=== PATIENT | male | born 1965 | race Caucasian/White ===

== ENCOUNTER 2022-08-15 06:40 | Inpatient (IN) | payer OTHER ==
--- OUTSIDE RECORDS SUMMARY | 2022-08-15 06:47 | XMS REPORT | Continuity of Care Document ---
:1965 Author Organization [facility] t Address [address] [place] [address] [address] [place] [address] Care Team Providers Name Role Phone RAMÓN KRAFT Primary Care Physician Unavailable RAMÓN KRAFT Attending Clinician Unavailable RAMÓN KRAFT Attending Clinician Unavailable MICHELINE DUPREE Attending Clinician Unavailable YARED LÓPEZ Attending Clinician Unavailable JENI FARNSWORTH Attending Clinician Unavailable BLAS URBINA Attending Clinician Unavailable LEIGHTON MINAYA Attending Clinician Unavailable CAREY ELLSWORTH Attending Clinician Unavailable Carey Ellsworth DO Attending Clinician Doctor Unassigned, [place] Attending Clinician Unavailable Mari Gore LMSW Attending Clinician Alex Snow RN Attending Clinician Unavailable Clare Mcneal RN Attending Clinician YONIS MAYO Attending Clinician Unavailable Brennan Love DO Attending Clinician Yonis Mayo MD Attending Clinician Stephany Hurley MD Attending Clinician STEPHANY HURLEY Attending Clinician Unavailable BRENNAN LOVE Admitting Clinician Unavailable STEPHANY HURLEY Admitting Clinician Unavailable Payers Payer Name Policy Type Policy Number Effective Date Expiration Date S cedric JIMENEZ [id number] 2022 00:00:00 [place]ICAID OF [place] [id number] 2022 00:00:00 [facility] DUAL [id number] 2022 COMP ALLY HMO-POS 00:00:00 Problems Condition Condition Condition Status Onset Resolution Last Treating Co mments Source Name Details Category Date Date Treatment Clinician Date Morbid Morbid Disease Active Univers obesity obesity 07-28 [place] mass index 00 Me dical of 50 or of 50 or Branch higher higher Wound of Wound of Disease Active Unive rs left lower left lower 07-28 it y of extremity, [place], [place] sequ[place] sequela 00 Medical Branch Hyperkalem Hyperkalem Disease Active U nivers ia ia 07-28 ity of 00:00: [place] 00 Medical Branch Allergies, Adverse Reactions, Alerts Allergy Allergy Status Severity Reaction(s) Onset Inactive Treating Comm ents Source Name Type Date Date Clinician SEAFOOD/ Food Active Swelling Univer s FISH 07-28 ity of 00:00: [place] 00 Medical Branch Seafood/ Propensi Active Swelling Univ ers Fish ty to 07-28 ity of adverse 00:00: [place] reaction 00 Medical s Branch NO KNOWN Drug Active Univers ALLERGIE Class ity of S [place] [facility] [place] Social History Social Habit Start Date Stop Date Quantity Comments Source History of tobacco Passive smoker Un iversity of use [place] [facility] History SDOH University o f Alcohol Std Drinks [place] [facility] History SDOH University o f Alcohol Binge [place] [facility] History SDOH Social Unive rsity of [facility] Med ical Together Branch History SDOH Social Unive rsity of [facility] Medical Branch History SDOH Social Unive rsity of [facility] Medical Membership Branch History SDOH Social Unive rsity of [facility] Medical Meetings Branch Exposure to 2022-08-04 2022-08-14 Not sure University SARS-CoV-2 (event) 00:00:00 00:11:00 [facility] Cigarettes smoked 2022-08-05 2022-08-05 Univers ity of current (pack per 00:00:00 00:00:00 ) - Reported Branch Alcohol intake 2022-08-05 2022-08-05 Ex-drinker University of 00:00:00 00:00:00 (finding) [facility] Alcohol Comment 2022-08-05 2022-08-05 quit drinking 25 Uni versity of 00:00:00 00:00:00 years ago [place] [facility] Tobacco use and 2022-08-05 2022-08-05 User of Universit y of exposure 00:00:00 00:00:00 smokeless [place] Medical tobacco Branch History SDOH 2022-07-29 2022-07-29 1 University o f Alcohol Frequency 00:00:00 00:00:00 [facility] edical Branch History SDOH Social 2022-07-29 2022-07-29 5 Unive rsity of Connections Phone 00:00:00 00:00:00 [facility] edical Branch History SDOH Social 2022-07-29 2022-07-29 5 Unive rsity of Connections Living 00:00:00 00:00:00 [place] [facility] History SDOH 2022-07-29 2022-07-29 7 University o f Physical Activity 00:00:00 00:00:00 [facility] edical DPW Branch History SDOH 2022-07-29 2022-07-29 3 University o f Physical Activity 00:00:00 00:00:00 [facility] edical MPS Branch History SDOH 2022-07-29 2022-07-29 5 University o f Financial 00:00:00 00:00:00 [place] [facility] History SDOH Food 2022-07-29 2022-07-29 1 Univers ity of Worry 00:00:00 00:00:00 [place] [facility] History SDOH Food 2022-07-29 2022-07-29 1 Univers ity of Scarcity 00:00:00 00:00:00 [place] [facility] History SDOH 2022-07-29 2022-07-29 2 University o f Transport Med 00:00:00 00:00:00 [place] [facility] History SDOH 2022-07-29 2022-07-29 2 University o f Transport Non-Med 00:00:00 00:00:00 [place] M edical Branch History SDOH 2022-07-29 2022-07-29 2 University o f Housing Unable to 00:00:00 00:00:00 [facility] edical Pay Branch History SDOH 2022-07-29 2022-07-29 2 University o f Housing Places 00:00:00 00:00:00 [facility] dilshad Lived Branch History SDOH 2022-07-29 2022-07-29 1 University o f Housing Homeless 00:00:00 00:00:00 [place] [facility] dicmayank Last Year Branch Sex [birth year] At [birth year] Universit y of 00:00:00 00:00:00 [place] [facility] [place] Smoking Status Start Date Stop Date Source Tobacco smoking consumption [facility] unknown Branch Smokes tobacco daily 2022-08-05 00:00:00 [facility] Ordered Filled Start Stop Current Ordering Indication Dosage Frequency Signature Comments Components Source Medication Medication Date Date Medication? Clinician (SIG) Name Name calcium 2022- Yes 500mg 500 mg, Unive rs carbonate 08-14 Oral, ity of (OSCAL-500) 08:30: 20:29 [place]CE, 1 [place] tablet 500 00 :00 dose, On Medic al mg Wed Branch 08/14/22 at 0330, GELA levETIRAcet 2022- No 1000mg 1,000 mg, Univers am (KEPPRA) 08-14 IV ity of in NACL 07:15: 07:42 Piggyback, [place] as (ISO-OS) 00 :00 ONCE, 1 Medical 1,000 dose, On Branch mg/100 mL Wed RTU 08/14/22 at 0215, Administer over 15 Minutes, 100 mL NaCl 0.9% 2022- No 500mL at 999 Univ ers (NS) bolus 08-14 mL/hr, 500 it y of infusion 05:30: 07:00 mL, IV [place] 500 mL 00 :00 Infusion, Medical ONCE, 1 Branch dose, On 08/14/22 at 0030, STAT divalproex Yes [id number] 250mg Take 1 Univers ER 250 mg 08-14 tablet by ity o f 24 hr 00:00: mouth [place] tablet 00 every 24 Medical (twenty-fo Branch ur) hours. lancing Yes 1{each} Take 1 Unive rs device/lanc 4-17 Each in ity o f ets 14:20: the [place] (ACCU-CHEK 29 morning Medica l SOFT DEV and 1 Each Branc h LANCETS at noon MIS) and 1 Each in the evening. lancing 2023-0 Yes 1{each} Take 1 [facility]: the [place] (ACCU-CHEK 29 morning Medica l SOFT DEV and 1 Each Branc h LANCETS at noon MISC) and 1 Each in the evening. lancing Yes 1{each} Take 1 Unive rs device/lanc 4-17 Each in [facility] ets 14:20: the [place] (ACCU-CHEK 29 morning Medica l SOFT DEV and 1 Each Branc h LANCETS at noon MISC) and 1 Each in the evening. lancing 0 Yes 1{each} Take 1 Unive rs device/lanc 4-17 Each in [facility] ets 14:20: the [place] (ACCU-CHEK 29 morning Medica l SOFT DEV and 1 Each Branc h LANCETS at noon MISC) and 1 Each in the evening. lancing Yes 1{each} Take 1 Unive rs device/lanc 4-17 Each in [facility] ets 14:20: the [place] (ACCU-CHEK 29 morning Medica l SOFT DEV and 1 Each Branc h LANCETS at noon MISC) and 1 Each in the evening. lancing Yes 1{each} Take 1 Unive rs device/lanc 4-17 Each in [facility] ets 14:20: the [place] (ACCU-CHEK 29 morning Medica l SOFT DEV and 1 Each Branc h LANCETS at noon MISC) and 1 Each in the evening. lancing 0 Yes 1{each} Take 1 Unive rs device/lanc 4-17 Each in [facility] ets 14:20: the [place] (ACCU-CHEK 29 morning Medica l SOFT DEV and 1 Each Branc h LANCETS at noon MISC) and 1 Each in the evening. lancing 0 Yes 1{each} Take 1 Unive rs device/lanc 4-17 [facility] ets 14:20: the [place] (ACCU-CHEK 29 morning Medica l SOFT DEV and 1 Each Branc h LANCETS at noon MISC) and 1 Each in the evening. lancing 0 Yes 1{each} Take 1 [facility]: the [place] (ACCU-CHEK 29 morning Medica l SOFT DEV and 1 Each Branc h LANCETS at noon [facility] [place] and 1 Each in the evening. lisinopriL 2023-0 2023- No 2.5mg Take 1 Uni vers 2.5 mg 4-17 04-17 tablet by ity of tablet 14:01: 00:00 mouth in [place] 18 :00 the Medical morning. Branch gabapentin 2023-0 2023- No 300mg Take 1 Uni vers 300 mg 4-17 04-17 capsule by ity of capsule 14:01: 00:00 mouth in [place] 18 :00 the Medical morning. Branch atorvastati 3-0 2023- No 40mg Take 1 Uni vers n 40 mg 4-17 04-17 tablet by ity of tablet 14:01: 00:00 mouth at [place] 18 :00 bedtime. Medical Branch apixaban 5 3-0 2023- No 5mg Take 1 Univ ers mg tablet 4-17 04-17 tablet by ity of 14:01: 00:00 mouth [place] 18 :00 every 12 Medical (twelve) Branch hours. metoprolol 2022-0 3- No 25mg Take 1 Univ ers tartrate 25 4-17 04-17 tablet by it y of mg tablet 14:01: 00:00 mouth in [facility] as 18 :00 the Medical morning Branch and 1 tablet in the evening. lisinopriL 2022-0 3- No 2.5mg Take 1 Uni vers 2.5 mg 4-17 04-17 tablet by ity of tablet 14:01: 00:00 mouth in [place] 18 :00 the Medical morning. Branch gabapentin 3-0 2023- No 300mg Take 1 Uni vers 300 mg 4-17 04-17 capsule by ity of capsule 14:01: 00:00 mouth in [place] 18 :00 the Medical morning. Branch atorvastati 2023-0 2023- No 40mg Take 1 Uni vers n 40 mg 4-17 04-17 tablet by ity of tablet 14:01: 00:00 mouth at [place] 18 :00 bedtime. Medical Branch apixaban 5 3-0 2023- No 5mg Take 1 Univ ers mg tablet 4-17 04-17 tablet by ity of 14:01: 00:00 mouth [place] 18 :00 every 12 Medical (twelve) Branch hours. metoprolol 2022-0 2023- No 25mg Take 1 Univ ers tartrate 25 4-17 04-17 tablet by it y of mg tablet 14:01: 00:00 mouth in [facility] as 18 :00 the Medical morning Branch and 1 tablet in the evening. lisinopriL 2022-0 3- No 2.5mg Take 1 Uni vers 2.5 mg 4-17 04-17 tablet by ity of tablet 14:01: 00:00 mouth in [place] 18 :00 the Medical morning. Branch gabapentin 2022-0 2023- No 300mg Take 1 Uni vers 300 mg 4-17 04-17 capsule by ity of capsule 14:01: 00:00 mouth in [place] 18 :00 the Medical morning. Branch atorvastati 2022-0 2022- No 40mg Take 1 Uni vers n 40 mg 4-17 04-17 tablet by ity of tablet 14:01: 00:00 mouth at [place] 18 :00 bedtime. Medical Branch apixaban 5 2022-0 3- No 5mg Take 1 Univ ers mg tablet 4-17 04-17 tablet by ity of 14:01: 00:00 mouth [place] 18 :00 every 12 Medical (twelve) Branch hours. metoprolol 2022-0 3- No 25mg Take 1 Univ ers tartrate 25 4-17 04-17 tablet by it y of mg tablet 14:01: 00:00 mouth in [facility] as 18 :00 the Medical morning Branch and 1 tablet in the evening. SERTraline 2022-0 3- No 25mg Take 1 Univ ers 25 mg 4-17 04-17 tablet by ity of tablet 14:01: 00:00 mouth in [place] 12 :00 the Medical morning. Branch SERTraline 2022-0 3- No 25mg Take 1 Univ ers 25 mg 4-17 04-17 tablet by ity of tablet 14:01: 00:00 mouth in [place] 12 :00 the Medical morning. Branch SERTraline 2022-0 3- No 25mg Take 1 Univ ers 25 mg 4-17 04-17 tablet by ity of tablet 14:01: 00:00 mouth in [place] 12 :00 the Medical morning. Branch Miscellaneo 2022-0 Yes Bilateral U nivers Medical -17 prosthetic ity of Supply Misc 13:42: s - [facility] [place] as 59 Medical Branch Miscellaneo 2022-0 Yes Bilateral U nivers us Medical 4-17 prosthetic ity of Supply Misc 13:42: s - BKA [place] 59 Medical Branch Miscellaneo 2022-0 Yes Bilateral U nivers us Medical 4-17 prosthetic ity of Supply Misc 13:42: s - BKA [place] 59 Medical Branch Miscellaneo 0 Yes Bilateral U nivers us Medical 4-17 prosthetic ity of Supply Misc 13:42: s - BKA [place] 59 Medical Branch Miscellaneo 2022-0 Yes Bilateral U nivers us Medical 4-17 prosthetic ity of Supply Misc 13:42: s - BKA [place] 59 Medical Branch Miscellaneo 2022-0 Yes Bilateral U nivers us Medical 4-17 prosthetic ity of Supply Misc 13:42: s - BKA [place] as 59 Medical Branch Miscellaneo 2022-0 Yes Bilateral U nivers us Medical 4-17 prosthetic ity of Supply Misc 13:42: s - BKA [place] as 59 Medical Branch Miscellaneo 2022-0 Yes Bilateral U nivers us Medical 4-17 prosthetic ity of Supply Misc 13:42: s - BKA [place] as 59 Medical Branch Miscellaneo 2022-0 Yes Bilateral U nivers us Medical 4-17 prosthetic ity of Supply Misc 13:42: s - BKA [place] 59 Medical Branch SEMGLEE,INS Yes inject Univ ers ULIN 4-17 under the ity of GLARGINE-YF 13:33: skin. As AURELIO Quintanilla 22 directed Medical Branch insulin NPH Yes inject Univ ers human 4-17 under the ity of isophane 13:33: skin. Abdi (HUMULIN N 22 Unsure of Medi dilshad [place]EN [place]) what kind Branch of humulin insulin he takes SEMGLEE,INS Yes inject Univ ers ULIN 4-17 under the ity of GLARGINE-YF 13:33: skin. As AURELIO Quintanilla 22 directed Medical Branch insulin NPH Yes inject Univ ers human 4-17 under the ity of isophane 13:33: skin. Abdi (HUMULIN N 22 Unsure of Medi dilshad [place]EN [place]) what kind Branch of humulin insulin he takes SEMGLEE,INS 2023-0 Yes inject Univ ers ULIN 4-17 under the ity of GLARGINE-YF 13:33: skin. As AURELIO Quintanilla 22 directed Medical Branch insulin NPH 2022-0 Yes inject Univ ers human 4-17 under the ity of isophane 13:33: skin. Abdi (HUMULIN N 22 Unsure of [facility]) what kind Branch of humulin insulin he takes SEMGLEE,INS 2023-0 Yes inject Univ ers ULIN 4-17 under the ity of GLARGINE-YF 13:33: skin. As AURELIO Quintanilla 22 directed Medical Branch insulin NPH 2022-0 Yes inject Univ ers human 4-17 under the ity of isophane 13:33: skin. Abdi (HUMULIN N 22 Unsure of [facility]) what kind Branch of humulin insulin he takes SEMGLEE,INS 2023-0 Yes inject Univ ers ULIN 4-17 under the ity of GLARGINE-YF 13:33: skin. As AURELIO Quintanilla 22 directed Medical Branch insulin NPH 2022-0 Yes inject Univ ers human 4-17 under the ity of isophane 13:33: skin. Abdi (HUMULIN N 22 Unsure of [facility]) what kind Branch of humulin insulin he takes SEMGLEE,INS 2023-0 Yes inject Univ ers ULIN 4-17 under the ity of GLARGINE-YF 13:33: skin. As AURELIO Quintanilla 22 directed Medical Branch insulin NPH 2022-0 Yes inject Univ ers human 4-17 under the ity of isophane 13:33: skin. Abdi (HUMULIN N 22 Unsure of [facility]) what kind Branch of humulin insulin he takes SEMGLEE,INS 2023-0 Yes inject Univ ers ULIN 4-17 under the ity of GLARGINE-YF 13:33: skin. As AURELIO Quintanilla 22 directed Medical Branch insulin NPH 3-0 Yes inject Univ ers human 4-17 under the ity of isophane 13:33: skin. Abdi (HUMULIN N 22 Unsure of [facility]) what kind Branch of humulin insulin he takes SEMGLEE,INS 2023-0 Yes inject Univ ers ULIN 4-17 under the ity of GLARGINE-YF 13:33: skin. As Rolando [place] 22 directed Medical Branch insulin NPH 2023-0 Yes inject Univ ers human 4-17 under the ity of isophane 13:33: skin. [place] (HUMULIN N 22 Unsure of Medi dilshad [place]EN [place]) what kind Branch of humulin insulin he takes SEMGLEE,INS 2023-0 Yes inject Univ ers ULIN 4-17 under the ity of GLARGINE-YF 13:33: skin. As Rolando [place], [place] 22 directed Medical Branch insulin NPH 2023-0 Yes inject Univ ers human 4-17 under the ity of isophane 13:33: skin. [place] (HUMULIN N 22 Unsure of Medi dilshad [place]EN [place]) what kind Branch of humulin insulin he takes cephALEXin 2023-0 Yes 500mg Take 1 Univ ers 500 mg 4-17 capsule by ity of capsule 13:23: mouth 4 [place] [address] (four) Medical times Branch daily. cephALEXin 2023-0 Yes 500mg Take 1 Univ ers 500 mg 4-17 capsule by ity of capsule 13:23: mouth 4 [place] [address] (four) Medical times Branch daily. cephALEXin 2023-0 Yes 500mg Take 1 Univ ers 500 mg 4-17 capsule by ity of capsule 13:23: mouth 4 [place] 56 (four) Medical times Branch daily. cephALEXin 2023-0 Yes 500mg Take 1 Univ ers 500 mg 4-17 capsule by ity of capsule 13:23: mouth 4 [place] 56 (four) Medical times Branch daily. cephALEXin 2023-0 Yes 500mg Take 1 Univ ers 500 mg 4-17 capsule by ity of capsule 13:23: mouth 4 [place] 56 (four) Medical times Branch daily. cephALEXin 2023-0 Yes 500mg Take 1 Univ ers 500 mg 4-17 capsule by ity of capsule 13:23: mouth 4 [place] 56 (four) Medical times Branch daily. cephALEXin 2023-0 Yes 500mg Take 1 Univ ers 500 mg 4-17 capsule by ity of capsule 13:23: mouth 4 [place] 56 (four) Medical times Branch daily. cephALEXin 2023-0 Yes 500mg Take 1 Univ ers 500 mg 4-17 capsule by ity of capsule 13:23: mouth 4 [place] 56 (four) Medical times Branch daily. cephALEXin 0 Yes 500mg Take 1 Univ ers 500 mg 4-17 capsule by ity of capsule 13:23: mouth 4 [place] [address] (four) Medical times Branch daily. gabapentin 0 Yes [id number] 300mg Take 1 Univers 300 mg 4-17 capsule by ity of capsule 00:00: mouth in [place] 00 the Medical morning Branch and 1 capsule at noon and 1 capsule in the evening. amiodarone 0 Yes [id number] 200mg Take 1 Univers 200 mg 4-17 tablet by ity of tablet 00:00: mouth in [place] 00 the Medical morning. Branch apixaban 5 0 Yes 5mg Take 1 Unive rs mg tablet 4-17 tablet by ity o f 00:00: mouth in [place] 00 the Medical morning Branch and 1 tablet in the evening. Indication s: ATRIAL FIBRILLATI ON atorvastati Yes [id number] 40mg Take 1 Univers n 40 mg 4-17 tablet by ity of tablet 00:00: mouth at [place] [address] bedtime. Medical Branch SERTraline 0 Yes [id number] 100mg Take 1 Univers 100 mg 4-17 tablet by ity of tablet 00:00: mouth in [place] 00 the Medical morning. Branch lisinopriL Yes [id number] 2.5mg Take 1 Univers 2.5 mg 4-17 tablet by ity of tablet 00:00: mouth in [place] 00 the Medical morning. Branch metoprolol 0 Yes [id number] 25mg Take 1 U nivers tartrate 25 4-17 tablet by ity of mg tablet 00:00: mouth in [facility] 00 the Medical morning Branch and 1 tablet in the evening. blood sugar 0 Yes [id number] Check U nivers diagnostic 4-17 blood ity of strip 00:00: sugar 2 [place] 00 times a Medical day. Branch E11.9. Brand per insurance. Uses ACCU-CHEK machine Lancets 0 Yes [id number] Check Unive rs Misc 4-17 blood ity of 00:00: sugar 2 [place] 00 times a Medical day. Branch E11.9. Brand per insurance. gabapentin 0 Yes [id number] 300mg Take 1 Univers 300 mg 4-17 capsule by ity of capsule 00:00: mouth in [place] the morning Branch and 1 capsule at noon and 1 capsule in the evening. amiodarone Yes [id number] 200mg Take 1 Univers 200 mg 4-17 tablet by ity of tablet 00:00: mouth in [place] the morning. Branch apixaban 5 0 Yes 5mg Take 1 Unive rs mg tablet 4-17 tablet by ity o f 00:00: mouth in [place] the morning Branch and 1 tablet in the evening. Indication s: ATRIAL FIBRILLATI ON atorvastati Yes [id number] 40mg Take 1 Univers n 40 mg 4-17 tablet by ity of tablet 00:00: mouth at [place] [address] bedtime. Medical Branch SERTraline Yes [id number] 100mg Take 1 Univers 100 mg 4-17 tablet by ity of tablet 00:00: mouth in [place] the morning. Branch lisinopriL Yes [id number] 2.5mg Take 1 Univers 2.5 mg 4-17 tablet by ity of tablet 00:00: mouth in [place] the . Branch metoprolol Yes [id number] 25mg Take 1 U nivers tartrate 25 4-17 tablet by ity of mg tablet 00:00: mouth in [facility] the Branch and 1 tablet in the evening. blood sugar Yes [id number] Check U nivers diagnostic 4-17 blood ity of strip 00:00: sugar 2 [place] 00 times a Medical day. Branch E11.9. Brand per insurance. Uses ACCU-CHEK machine Lancets Yes [id number] Check Unive rs Misc 4-17 blood ity of 00:00: sugar 2 [place] [address] times a Medical day. Branch E11.9. Brand per insurance. gabapentin 0 Yes [id number] 300mg Take 1 Univers 300 mg 4-17 capsule by ity of capsule 00:00: mouth in [place] the morning Branch and 1 capsule at noon and 1 capsule in the evening. amiodarone 0 Yes [id number] 200mg Take 1 Univers 200 mg 4-17 tablet by ity of tablet 00:00: mouth in [place] the morning. Branch apixaban 5 2023-0 Yes 5mg Take 1 Unive rs mg tablet 4-17 tablet by ity o f 00:00: mouth in [place] the morning Branch and 1 tablet in the evening. Indication s: ATRIAL FIBRILLATI ON atorvastati Yes [id number] 40mg Take 1 Univers n 40 mg 4-17 tablet by ity of tablet 00:00: mouth at [place] [address] bedtime. Medical Branch SERTraline Yes [id number] 100mg Take 1 Univers 100 mg 4-17 tablet by ity of tablet 00:00: mouth in [place] 00 the morning. Branch lisinopriL Yes [id number] 2.5mg Take 1 Univers 2.5 mg 4-17 tablet by ity of tablet 00:00: mouth in [place] 00 the morning. Branch metoprolol Yes [id number] 25mg Take 1 U nivers tartrate 25 4-17 tablet by ity of mg tablet 00:00: mouth in [facility] 00 the morning Branch and 1 tablet in the evening. blood sugar Yes [id number] Check U nivers diagnostic 4-17 blood ity of strip 00:00: sugar 2 [place] 00 times a Medical day. Branch E11.9. Brand per insurance. Uses ACCU-CHEK machine Lancets Yes [id number] Check Unive rs Misc 4-17 blood ity of 00:00: sugar 2 [place] 00 times a Medical day. Branch E11.9. Brand per insurance. gabapentin Yes [id number] 300mg Take 1 Univers 300 mg 4-17 capsule by ity of capsule 00:00: mouth in [place] the morning Branch and 1 capsule at noon and 1 capsule in the evening. amiodarone Yes [id number] 200mg Take 1 Univers 200 mg 4-17 tablet by ity of tablet 00:00: mouth in [place] 00 the morning. Branch apixaban 5 0 Yes 5mg Take 1 Unive rs mg tablet 4-17 tablet by ity o f 00:00: mouth in [place] 00 the morning Branch and 1 tablet in the evening. Indication s: ATRIAL FIBRILLATI ON atorvastati Yes [id number] 40mg Take 1 Univers n 40 mg 4-17 tablet by ity of tablet 00:00: mouth at [place] [address] bedtime. Medical Branch SERTraline Yes [id number] 100mg Take 1 Univers 100 mg 4-17 tablet by ity of tablet 00:00: mouth in [place] the morning. Branch lisinopriL Yes [id number] 2.5mg Take 1 Univers 2.5 mg 4-17 tablet by ity of tablet 00:00: mouth in [place] the morning. Branch metoprolol Yes [id number] 25mg Take 1 U nivers tartrate 25 4-17 tablet by ity of mg tablet 00:00: mouth in [facility] 00 the morning Branch and 1 tablet in the evening. blood sugar Yes [id number] Check U nivers diagnostic 4-17 blood ity of strip 00:00: sugar 2 [place] times a Medical day. Branch E11.9. Brand per insurance. Uses ACCU-CHEK machine Lancets Yes [id number] Check Unive rs Misc 4-17 blood ity of 00:00: sugar 2 [place] times a Medical day. Branch E11.9. Brand per insurance. gabapentin Yes [id number] 300mg Take 1 Univers 300 mg 4-17 capsule by ity of capsule 00:00: mouth in [place] the morning Branch and 1 capsule at noon and 1 capsule in the evening. amiodarone Yes [id number] 200mg Take 1 Univers 200 mg 4-17 tablet by ity of tablet 00:00: mouth in [place] the morning. Branch apixaban 5 Yes 5mg Take 1 Unive rs mg tablet 4-17 tablet by ity o f 00:00: mouth in [place] the morning Branch and 1 tablet in the evening. Indication s: ATRIAL FIBRILLATI ON atorvastati Yes [id number] 40mg Take 1 Univers n 40 mg 4-17 tablet by ity of tablet 00:00: mouth at [place] [address] bedtime. Medical Branch SERTraline Yes [id number] 100mg Take 1 Univers 100 mg 4-17 tablet by ity of tablet 00:00: mouth in [place] the morning. Branch lisinopriL 0 Yes [id number] 2.5mg Take 1 Univers 2.5 mg 4-17 tablet by ity of tablet 00:00: mouth in [place] the morning. Branch metoprolol 2022-0 Yes [id number] 25mg Take 1 U nivers tartrate 25 4-17 tablet by ity of mg tablet 00:00: mouth in [facility] the morning Branch and 1 tablet in the evening. blood sugar 2022-0 Yes [id number] Check U nivers diagnostic 4-17 blood ity of strip 00:00: sugar 2 [place] times a Medical day. Branch E11.9. Brand per insurance. Uses ACCU-CHEK machine Lancets 2022-0 Yes [id number] Check Unive rs Misc 4-17 blood ity of 00:00: sugar 2 [place] times a Medical day. Branch E11.9. Brand per insurance. gabapentin 2022-0 Yes [id number] 300mg Take 1 Univers 300 mg 4-17 capsule by ity of capsule 00:00: mouth in [place] the morning Branch and 1 capsule at noon and 1 capsule in the evening. amiodarone 2022-0 Yes [id number] 200mg Take 1 Univers 200 mg 4-17 tablet by ity of tablet 00:00: mouth in [place] the morning. Branch apixaban 5 2022-0 Yes 5mg Take 1 Unive rs mg tablet 4-17 tablet by ity o f 00:00: mouth in [place] the morning Branch and 1 tablet in the evening. Indication s: ATRIAL FIBRILLATI ON atorvastati 2022-0 Yes [id number] 40mg Take 1 Univers n 40 mg 4-17 tablet by ity of tablet 00:00: mouth at [place] [address] bedtime. Medical Branch SERTraline 2022-0 Yes [id number] 100mg Take 1 Univers 100 mg 4-17 tablet by ity of tablet 00:00: mouth in [place] the morning. Branch lisinopriL 2022-0 Yes [id number] 2.5mg Take 1 Univers 2.5 mg 4-17 tablet by ity of tablet 00:00: mouth in [place] the morning. Branch metoprolol 2022-0 Yes [id number] 25mg Take 1 U nivers tartrate 25 4-17 tablet by ity of mg tablet 00:00: mouth in [facility] the morning Branch and 1 tablet in the evening. blood sugar 2022-0 Yes [id number] Check U nivers diagnostic 4-17 blood ity of strip 00:00: sugar 2 [place] 00 times a Medical day. Branch E11.9. Brand per insurance. Uses ACCU-CHEK machine Lancets 2022-0 Yes [id number] Check Unive rs Misc 4-17 blood ity of 00:00: sugar 2 [place] 00 times a Medical day. Branch E11.9. Brand per insurance. gabapentin 0 Yes [id number] 300mg Take 1 Univers 300 mg 4-17 capsule by ity of capsule 00:00: mouth in [place] 00 the Medical morning Branch and 1 capsule at noon and 1 capsule in the evening. amiodarone Yes [id number] 200mg Take 1 Univers 200 mg 4-17 tablet by ity of tablet 00:00: mouth in [place] 00 the morning. Branch apixaban 5 0 Yes 5mg Take 1 Unive rs mg tablet 4-17 tablet by ity o f 00:00: mouth in [place] the morning Branch and 1 tablet in the evening. Indication s: ATRIAL FIBRILLATI ON atorvastati Yes [id number] 40mg Take 1 Univers n 40 mg 4-17 tablet by ity of tablet 00:00: mouth at [place] [address] bedtime. Medical Branch SERTraline 0 Yes [id number] 100mg Take 1 Univers 100 mg 4-17 tablet by ity of tablet 00:00: mouth in [place] 00 the morning. Branch lisinopriL 0 Yes [id number] 2.5mg Take 1 Univers 2.5 mg 4-17 tablet by ity of tablet 00:00: mouth in [place] 00 the morning. Branch metoprolol 0 Yes [id number] 25mg Take 1 U nivers tartrate 25 4-17 tablet by ity of mg tablet 00:00: mouth in [facility] 00 the morning Branch and 1 tablet in the evening. blood sugar 0 Yes [id number] Check U nivers diagnostic 4-17 blood ity of strip 00:00: sugar 2 [place] 00 times a Medical day. Branch E11.9. Brand per insurance. Uses ACCU-CHEK machine Lancets 2022-0 Yes [id number] Check Unive rs Misc 4-17 blood ity of 00:00: sugar 2 [place] 00 times a Medical day. Branch E11.9. Brand per insurance. gabapentin 2022-0 Yes [id number] 300mg Take 1 Univers 300 mg 4-17 capsule by ity of capsule 00:00: mouth in [place] 00 the morning Branch and 1 capsule at noon and 1 capsule in the evening. amiodarone 2022-0 Yes [id number] 200mg Take 1 Univers 200 mg 4-17 tablet by ity of tablet 00:00: mouth in [place] 00 the morning. Branch apixaban 5 2022-0 Yes 5mg Take 1 Unive rs mg tablet 4-17 tablet by ity o f 00:00: mouth in [place] 00 the morning Branch and 1 tablet in the evening. Indication s: ATRIAL FIBRILLATI ON atorvastati 2022-0 Yes [id number] 40mg Take 1 Univers n 40 mg 4-17 tablet by ity of tablet 00:00: mouth at [place] [address] bedtime. Medical Branch SERTraline 2022-0 Yes [id number] 100mg Take 1 Univers 100 mg 4-17 tablet by ity of tablet 00:00: mouth in [place] the morning. Branch lisinopriL 0 Yes [id number] 2.5mg Take 1 Univers 2.5 mg 4-17 tablet by ity of tablet 00:00: mouth in [place] 00 the morning. Branch metoprolol 2022-0 Yes [id number] 25mg Take 1 U nivers tartrate 25 4-17 tablet by ity of mg tablet 00:00: mouth in [facility] 00 the morning Branch and 1 tablet in the evening. blood sugar 2022-0 Yes [id number] Check U nivers diagnostic 4-17 blood ity of strip 00:00: sugar 2 [place] 00 times a Medical day. Branch E11.9. Brand per insurance. Uses ACCU-CHEK machine Lancets 2022-0 Yes [id number] Check Unive rs Misc 4-17 blood ity of 00:00: sugar 2 [place] 00 times a Medical day. Branch E11.9. Brand per insurance. gabapentin 2022-0 Yes [id number] 300mg Take 1 Univers 300 mg 4-17 capsule by ity of capsule 00:00: mouth in [place] 00 the Medical morning Branch and 1 capsule at noon and 1 capsule in the evening. amiodarone 2022-0 Yes [id number] 200mg Take 1 Univers 200 mg 4-17 tablet by ity of tablet 00:00: mouth in [place] 00 the Medical morning. Branch apixaban 5 0 Yes 5mg Take 1 Unive rs mg tablet 4-17 tablet by ity o f 00:00: mouth in [place] 00 the Medical morning Branch and 1 tablet in the evening. Indication s: ATRIAL FIBRILLATI ON atorvastati Yes [id number] 40mg Take 1 Univers n 40 mg 4-17 tablet by ity of tablet 00:00: mouth at [place] 00 bedtime. Medical Branch SERTraline Yes [id number] 100mg Take 1 Univers 100 mg 4-17 tablet by ity of tablet 00:00: mouth in [place] 00 the morning. Branch lisinopriL Yes [id number] 2.5mg Take 1 Univers 2.5 mg 4-17 tablet by ity of tablet 00:00: mouth in [place] 00 the morning. Branch metoprolol Yes [id number] 25mg Take 1 U nivers tartrate 25 4-17 tablet by ity of mg tablet 00:00: mouth in [facility] 00 the Medical morning Branch and 1 tablet in the evening. blood sugar 0 Yes [id number] Check U nivers diagnostic 4-17 blood ity of strip 00:00: sugar 2 [place] 00 times a Medical day. Branch E11.9. Brand per insurance. Uses ACCU-CHEK machine Lancets 0 Yes [id number] Check Unive rs Misc 4-17 blood ity of 00:00: sugar 2 [place] 00 times a Medical day. Branch E11.9. Brand per insurance. blood sugar 0 3- No [id number] Check Univers diagnostic 4-17 04-17 blood ity of strip 00:00: 00:00 sugar 2 [place] 00 :00 times a Medical day. Branch E11.9. Brand per insurance. Uses ACCU-CHEK machine blood sugar 2022-0 2023- No [id number] Check Univers diagnostic 4-17 04-17 blood ity of strip 00:00: 00:00 sugar 2 [place] 00 :00 times a Medical day. Branch E11.9. Brand per insurance. Uses ACCU-CHEK machine blood sugar 2022-0 2023- No [id number] Check Univers diagnostic 4-17 04-17 blood ity of strip 00:00: 00:00 sugar 2 [place] 00 :00 times a Medical day. Branch E11.9. Brand per insurance. Uses ACCU-CHEK machine amiodarone 2023-0 Yes 200mg Take 1 Univ ers 200 mg 4-12 tablet by ity of tablet 00:00: mouth in [place] 00 the Medical morning. Branch SERTraline 2023-0 Yes 25mg Take 1 Unive rs 25 mg 4-12 tablet by ity of tablet 00:00: mouth in [place] 00 the Medical morning. Branch amiodarone 2023-0 Yes 200mg Take 1 Univ ers 200 mg 4-12 tablet by ity of tablet 00:00: mouth in [place] 00 the Medical morning. Branch SERTraline 2023-0 Yes 25mg Take 1 Unive rs 25 mg 4-12 tablet by ity of tablet 00:00: mouth in [place] 00 the Medical morning. Branch amiodarone 2023-0 Yes 200mg Take 1 Univ ers 200 mg 4-12 tablet by ity of tablet 00:00: mouth in [place] 00 the Medical morning. Branch SERTraline 2023-0 Yes 25mg Take 1 Unive rs 25 mg 4-12 tablet by ity of tablet 00:00: mouth in [place] 00 the Medical morning. Branch amiodarone 2023-0 2023- No 200mg Take 1 Uni vers 200 mg 4-12 -17 tablet by ity of tablet 00:00: 00:00 mouth in [place] 00 :00 the Medical morning. Branch SERTraline 2023-0 2023- No 100mg Take 1 Uni vers 100 mg 4-12 -17 tablet by ity of tablet 00:00: 00:00 mouth in [place] 00 :00 the Medical morning. Branch amiodarone 2023-0 2023- No 200mg Take 1 Uni vers 200 mg 4-12 -17 tablet by ity of tablet 00:00: 00:00 mouth in [place] 00 :00 the Medical morning. Branch SERTraline 2023-0 2023- No 100mg Take 1 Uni vers 100 mg 4-12 -17 tablet by ity of tablet 00:00: 00:00 mouth in [place] 00 :00 the Medical morning. Branch amiodarone 2023-0 2023- No 200mg Take 1 Uni vers 200 mg 4-12 -17 tablet by ity of tablet 00:00: 00:00 mouth in [place] 00 :00 the Medical morning. Branch SERTraline 2022- No 100mg Take 1 Uni vers 100 mg 07-31 tablet by ity of tablet 00:00: 00:00 mouth in [place] 00 :00 the Medical morning. Branch sodium Yes Topical, Univers hypochlorit 4-11 BID, First it y of e 0.025% 01:00: dose on [place] ([facility]) [facility] Medical solution 07/29/22 at [facility] h 2000, Until Discontinu ed, Routine iron 2022- No 500mg 500 mg, IV Unive rs sucrose 07-29 Infusion, ity of (VENOFER) 19:15: 23:11 ONCE, [place] 500 mg in 00 :00 Administer Medi dilshad NaCl 0.9% over 2.5 Branch (NS) 250 mL Hours, On infusion [facility] 07/29/22 at 1415, For 1 dose iopamidol 2022- No [id number] 80mL 80 mL, Univers (ISOVUE 07-29 Intravenou ity o f 370-500 mL) 16:26: 16:26 s, ONCE, 1 [place] injection 00 :00 dose, On Medica l 80 mL [facility] 07/29/22 at 1145, Routine lidocaine 2022- No 20mL 20 mL, Unive rs 1% 07-29 Infiltrati ity of (XYLOCAINE) 16:00: 15:27 on, ONCE, [place] 10 mg/mL (1 00 :00 1 dose, On Me dical %) [facility] injection 07/29/22 at 20 mL 1100, STAT lactated 2022- No 1000mL at 100 Univ ers ringers IV 07-29-10 mL/hr, ity of infusion 15:30: 15:36 1,000 mL, [place] as 1,000 mL 00 :20 Intravenou Medic al s, ONCE, 1 Branch dose, On [facility] 07/29/22 at 1030, Routine acetaminoph Yes 650mg 650 mg, Un anil en 4-10 Oral, ity of (TYLENOL) 01:52: Q6HPRN, [place] tablet 650 10 Starting Medic al mg on [facility] 07/28/22 at 2051, Until Discontinu ed, Routine, Pain (scale 1-3), Temp > 38 C sodium 50meq 50 mEq, Univer s bicarbonate 07-28 Slow IV ity of 1 mEq/mL 20:00: 19:38 Push, [place] (8.4 %) 00 :00 ONCE, 1 Medical injection dose, On Branch 50 mEq [place] 07/28/22 at 1500, Routine amiodarone Yes 200mg 200 mg, Uni vers (PACERONE) 07-28 Oral, ity of tablet 200 14:00: DAILY, [place] mg 00 First dose Medical on [facility] 07/28/22 at 0900, Until Discontinu ed, Routine SERTraline Yes 25mg 25 mg, Unive rs (ZOLOFT) 07-28 Oral, ity of tablet 25 14:00: DAILY, [place] mg 00 First dose Medical on [facility] 07/28/22 at 0900, Until Discontinu ed, Routine Sliding Yes Subcutaneo Univ ers Scale 07-28 us, TID ity of Insulin - 13:00: MEALS+HS, [place] Lispro 00 First dose Medical (HumaLOG) + on [facility] 07/28/22 at Testing 0800, Until Discontinu ed, Routine levETIRAcet No 500mg 500 mg, U nivers am (KEPPRA) 07-28 Oral, BID, i ty of tablet 500 13:00: 12:48 First dose [place] mg 00 :43 on [facility] 07/28/22 at Branch 0800, Until Discontinu ed, Routine vancomycin 2022- No 15mg/kg 1,500 mg Univers (VANCOCIN) 07-28 (rounded ity of 1,500 mg in 11:00: 13:55 from 1,380 [place] NaCl 0.9% 00 :31 mg = 15 Medical (NS) 500 mL mg/kg ?92 Bra [facility] VIAL-MATE kg), IV IV Piggyback, piggyback Q24H ABX, 7 doses, First dose (after last modificati on) on [place] 07/28/22 at 0600, Last dose on [facility] 08/03/22 at 0600, Administer over 90 Minutes, 500 mL
Reas on for Anti-Infec tive: Documented Infection< br>Documen yana Infection Site: Skin / Soft Tissue
Duration of Therapy: 7 days furosemide 2022- No 20mg 20 mg, Univ ers (LASIX) 07-28 Slow IV ity of injection 10:30: 10:30 Push, [place] 20 mg 00 :00 ONCE, 1 Medical dose, On Branch [place] 07/28/22 at 0530, Routine NaCl 0.9% 2022- No 500mL at 999 Univ ers (NS) bolus 07-28 mL/hr, 500 it y of infusion 09:54: 11:57 mL, IV [place] 500 mL 00 :00 Piggyback, Medical ONCE, 1 Branch dose, On [place] 07/28/22 at 0500, STAT lactated 2022- No 1000mL at 999 Univ ers ringers IV 07-28 mL/hr, ity of infusion 08:30: 09:06 1,000 mL, [place] as 1,000 mL 00 :00 Intravenou Medic al s, ONCE, 1 Branch dose, On [place] 07/28/22 at 0330, Routine HEPARIN 2022- No 4000U 4,000 Univers SODIUM 07-28 Units, IV ity of (PORCINE) 07:45: 08:24 Push, [place] 1,000 00 :00 ONCE, 1 Medical UNIT/ML dose, On Branch BOLUS ACS [place] 07/28/22 ORDER SET at 0245, GELA dextrose Yes 250mL 250 mL, IV Un anil 10% (D10W) 07-28 Infusion, ity of bolus 07:32: PRN - SEE [place] infusion 32 INSTRUCTIO Medic al 250 mL NS, Branch Administer over 60 Minutes, Other, If blood glucose is < or = 70 mg/dL and patient is unable to swallow or has mental status changes, Starting on [place] 07/28/22 at 0232
If blood glucose is < or = 70 mg/dL and patient is unable to swallow or has mental status changes (Give glucagon order if patient needs fluid restrictio n): IF IV access available: Dextrose 10%. 1. 125 mL (? bag) of D10W IV infusion - equivalent to 12.5 g dextrose 2. Blood glucose - draw blood glucose 15 minutes after D10W Administra tion. 3. If blood glucose is < 80 mg/dL, repeat.
glucagon 2022- Yes 1mg 1 mg, Univers (GLUCAGEN 07-28 Intramuscu ity of DIAGNOSTIC 07:32: lar, PRN, [place] KIT) 26 Starting Medical injection 1 on [place] Branch mg 07/28/22 at 0232, Until Discontinu ed, GELA, Blood Glucose < or = 70 mg/dL and patient is NPO, unable to swallow or has mental changes. heparin 2022- No 0U/h 0-2,150 Univer s 25,000 07-28 04-10 Units/hr ity of Units/250 07:30: 14:43 (0-21.5 [place] mL 20 :03 mL/hr), IV Medical (Premixed Infusion, Branc h Bag) in TITRATE, 0.45 % NS Parameters in Admin. Instr., Starting on 07/28/22 at 0230
In itiate dosing:&nb sp; & nbsp;&nbsp ; -Patient 83 kg or under: 950 Units/hr (Calculate d dose at 12 units/kg/h r) &n bsp; &nbs p; -Patient over 83 k,000 units/hr&n bsp;DO NOT Exceed the MAXIMUM 1,000 units/hr for initiation of heparin drip.&nbsp ; CAU TION - If LMWH given in ER, AVOID bolus and start next dose/drip 12 hrs after ER dosage.&nb sp; M ust program rate using programmab le infusion pump.&nbsp ; Zuleyma ck with the ordering provider first prior to any administra tion should the patient be on existing/a dditional anticoagul ant therapy. Rang e, Dosing and Testing: &nbs p;FOR [facility], [facility], AND [facility] ONLY &nbs p; - aPTT < 35: & nbsp;Bolus 5000 units, increase rate 300 units/hr&n bsp; - aPTT 35-44:&nbs p; John Paul denise 3000 units, increase rate 200 units/hr&n bsp; - aPTT 45-54:&nbs p; In crease rate 100 units/hr&n bsp; - aPTT 55-85:&nbs p; NO CHANGE&nbs p; - aPTT 86-95:&nbs p; De crease rate 100 units/hr&n bsp; - aPTT 96-120:&nb sp; H old 30 minutes, decrease rate 150 units/hr&a mp;nbsp; - aPTT > 120: Hold 60 minutes, decrease rate 200 units/hr&n bsp; Check aPTT 6 hours after initiation , then Q6H after every change, aPTT Q12H once therapeuti c levels are reached.&n bsp; &nbs p; __ &n bsp;FOR [facility] ONLY - aPTT < 40: & nbsp;Bolus 5000 units, increase rate 300 units/hr&n bsp; - aPTT 40-49:&nbs p; John Paul denise 3000 units, increase rate 200 units/hr&n bsp; - aPTT 50-59:&nbs p; In crease rate 100 units/hr&n bsp; - aPTT 60-85:&nbs p; NO CHANGE&nbs p; - aPTT 86-95:&nbs p; De crease rate 100 units/hr&n bsp; - aPTT 96-120:&nb sp; H old 30 minutes, decrease rate 150 units/hr&n bsp; - aPTT > 120: Hold 60 minutes, decrease rate 200 units/hr&n bsp; Check aPTT 6 hours after initiation , then Q6H after every change, aPTT Q12H once therapeuti c levels are reached.&n bsp; DO NOT ADJUST INITIAL BOLUS OR INITIAL INFUSION RATE.
heparin 2022- No 3000U FOR Univers (1,000 07-28 REBOLUSING ity of unit/mL, 10 07:30: 14:43 , Starting [place] mL vial) 11 :03 on [facility] for 07/28/22 at Branch Rebolusing 0230, Until 07/29/22 at 0943, Routine
Dosing based on aPPT testing parameters (refer to continuous heparin drip order).
ceFEPIme 2022- No 1000mg 1,000 mg, U nivers (MAXIPIME) 07-28 IV ity of 1,000 mg in 07:30: 09:39 PigYaphank, [place] NaCl 0.9% 00 :00 ONCE, 1 Medical (NS) 100 mL dose, On Bran ch MINI-BAG 07/28/22 at 0230, Administer over 30 Minutes, 100 mL
Reas on for Anti-Infec tive: Documented Infection< br>Documen yana Infection Site: Skin / Soft Tissue
Duration of Therapy: 7 days metroNIDAZO 2022- No 500mg 500 mg, IV Univers LE in NaCl 07-28 Infusion, ity of (iso-os) 07:30: 14:01 Q12H ABX, [place] as (FLAGYL 00 :12 14 doses, Medical I.V.) RTU First dose Bran ch IV infusion on Sun 500 mg 07/28/22 at 0230, Last dose on 08/03/22 at 1430, Administer over 60 Minutes, 100 mL
Reas on for Anti-Infec tive: Documented Infection& lt;br>Docu mented Infection Site: Skin / Soft Tissue
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
Reas on for Anti-Infec tive: Documented Infection< br>Documen yana Infection Site: Skin / Soft Tissue
Duration of Therapy: Other (see Comments) FENTanyl PF 2022- No 50ug 50 mcg, Un anil (SUBLIMAZE 07-19 Slow IV ity o f (PF)) 04:45: 03:47 Push, [place] injection 00 :00 ONCE, 1 Medical 50 mcg dose, On Branch Angélica 07/18/22 at 2345, Routine piperacilli 2022- No 3.375g 3.375 g, Univers n-tazobacta 07-19 IV ity of m (ZOSYN) 03:45: 04:18 [place]gyback, [place] 3.375 g in 00 :00 ONCE, 1 Medica l NaCl 0.9% dose, On Branch (NS) 100 mL Angélica MINI-BAG 07/18/22 at 2245, Administer over 30 Minutes, 100 mL
Reas on for Anti-Infec tive: Documented Infection< br>Documen yana Infection Site: Skin / Soft Tissue
Duration of Therapy: Other (see Comments) cephALEXin Yes [id number] 500mg Take 1 Univers (KEFLEX) 07-19 capsule by ity o f 500 mg 00:00: mouth 4 [place] capsule 00 (four) Medical times Branch daily. cephALEXin 2022- No [id number] 500mg Take 1 Univers (KEFLEX) 07-19-11 capsule by ity of 500 mg 00:00: 00:00 mouth 4 [place] capsule 00 :00 (four) Medical times Branch daily. HYDROcodone 2022- Yes [id number] 1{tbl} Take 1 U nivers -acetaminop 07-19 tablet by it y of hen (NORCO) 00:00: 04:59 mouth [place] 10-325 mg 00 :00 every 6 Medical tablet (six) Branch hours as needed for Pain (scale 7-10) for up to 7 days. Indication s: acute pain sulfamethox 2022- Yes [id number] 2{tbl} Take 2 Univers azole-trime 07-19 tablets by i ty of thoprim 00:00: 04:59 mouth [place] 800-160 mg 00 :00 every 12 Medic al per tablet (twelve) Branc h hours for 7 days. Vital Signs Vital Name Observation Time Observation Value Comments Source Systolic blood 2022-08-14 122 mm[Hg] University of pressure 07:31:00 [facility] Diastolic blood 2022-08-14 55 mm[Hg] University o f pressure 07:31:00 [facility] Heart rate 2022-08-14 55 /min [facility] 07:31:00 [facility] Respiratory rate 2022-08-14 15 /min University 07:31:00 [facility] Oxygen saturation 2022-08-14 94 /min [facility] Arterial blood 07:31:00 [facility] by Pulse oximetry [place] Body temperature 2022-08-14 37 Jaqueline [facility] 05:10:00 [facility] Body height 2022-08-14 121.9 cm "without my University of 05:10:00 legs" [facility] Body weight 2022-08-14 81.647 kg University of 05:10:00 [facility] BMI 2022-08-14 54.93 kg/m2 University of 05:10:00 [facility] Systolic blood 2022-08-05 175 mm[Hg] University of pressure 18:25:00 [facility] Diastolic blood 2022-08-05 71 mm[Hg] University o f pressure 18:25:00 [facility] Heart rate 2022-08-05 60 /min University 18:24:00 [facility] Body temperature 2022-08-05 36.67 Jaqueline [facility] 18:24:00 [facility] Respiratory rate 2022-08-05 18 /min [facility] 18:24:00 [facility] Body height 2022-08-05 121.9 cm [facility] 18:24:00 [facility] Oxygen saturation 2022-08-05 100 /min University of in Arterial blood 18:24:00 [facility] by Pulse oximetry Branch Systolic blood 2022-07-31 130 mm[Hg] University of pressure 21:05:00 [facility] Diastolic blood 2022-07-31 47 mm[Hg] University o f pressure 21:05:00 [facility] Heart rate 2022-07-31 61 /min [facility] 21:05:00 [facility] Body temperature 2022-07-31 36.83 Ajqueline [facility] 21:05:00 [facility] Respiratory rate 2022-07-31 16 /min [facility] 21:05:00 [facility] Oxygen saturation 2022-07-31 99 /min [place] of in Arterial blood 21:05:00 [facility] by Pulse oximetry [place] Body height 2022-07-29 121.9 cm A [facility] 15:00:00 [facility] Body weight 2022-07-28 92 kg [facility] 07:00:00 [facility] BMI 2022-07-28 61.89 kg/m2 University of 07:00:00 [facility] Systolic blood 2022-07-19 116 mm[Hg] University of pressure 06:20:00 [facility] Diastolic blood 2022-07-19 82 mm[Hg] University o f pressure 06:20:00 [facility] Heart rate 2022-07-19 54 /min University 06:20:00 [facility] Body temperature 2022-07-19 36.5 Jaqueline [facility] 06:20:00 [facility] Respiratory rate 2022-07-19 16 /min [facility] 06:20:00 [facility] Oxygen saturation 2022-07-19 95 /min University of in Arterial blood 06:20:00 [facility] by Pulse oximetry Branch Body height 2022-07-19 121.9 cm [facility] 02:38:00 [facility] Body weight 2022-07-19 79.379 kg [facility] 02:38:00 [facility] BMI 2022-07-19 53.40 kg/m2 [facility] 02:38:00 [facility] Procedures Procedure Date / Time Performing Clinician Source Performed POCT GLUCOSE (AUTOMATED) 2022-08-14 07:28:00 Carey Ellsworth [facility] URINE DRUG (IMMUNOASSAY) 2022-08-14 06:10:00 aCrey Ellsworth [facility] - COMPREHENSIVE DRUG [facility] SCREEN URINALYSIS 2022-08-14 06:10:00 Carey Ellsworth [facility] BASIC METABOLIC PANEL 2022-08-14 05:43:00 Carey Ellsworth [facility] (NA, K, CL, CO2, Medical Branch GLUCOSE, BUN, CREATININE, CA) CBC WITH DIFF 2022-08-14 05:43:00 Carey Ellsworth [facility] LACTIC ACID WHOLE BLOOD 2022-08-14 05:43:00 Carey Ellsworth [facility] CONSENT/REFUSAL FOR 2022-08-14 05:01:57 Doctor Unassigned, No Un [facility] DIAGNOSIS AND TREATMENT [facility] DNR 2022-08-07 05:01:00 Doctor Unassigned, No [facility] Name [facility] POCT GLUCOSE (AUTOMATED) 2022-07-31 22:26:00 Mayo [facility] POCT GLUCOSE (AUTOMATED) 2022-07-31 17:13:00 Mayo [facility] POCT GLUCOSE (AUTOMATED) 2022-07-31 01:46:00 Mayo, [facility] POCT GLUCOSE (AUTOMATED) 2022-07-30 23:16:00 Mayo [facility] POCT GLUCOSE (AUTOMATED) 2022-07-30 18:42:00 Mayo [facility] POCT GLUCOSE (AUTOMATED) 2022-07-30 14:18:00 MayoYonis [facility] MAGNESIUM 2022-07-30 10:58:00 Kelsey [facility] BASIC METABOLIC PANEL 2022-07-30 10:58:00 Mihai Cole [facility] (NA, K, CL, CO2, Medical Branch GLUCOSE, BUN, CREATININE, CA) CBC WITH DIFF 2022-07-30 10:58:00 Kelsey [facility] POCT GLUCOSE (AUTOMATED) 2022-07-30 01:36:00 MayoYonis germain [facility] POCT GLUCOSE (AUTOMATED) 2022-07-29 22:43:00 Yonis Mayo [facility] POCT GLUCOSE (AUTOMATED) 2022-07-29 18:35:00 Yonis Mayo [facility] IRON PANEL 2022-07-29 17:06:00 Kelsey [facility] CT ANGIOGRAM LOWER 2022-07-29 16:36:24 Yordy Thornton [facility] EXTREMITY LEFT W [facility] CONTRAST ACTIVATED PARTIAL 2022-07-29 13:53:00 Yordy Thornton [facility] POCT GLUCOSE (AUTOMATED) 2022-07-29 13:45:00 Yonis Mayo [facility] MAGNESIUM 2022-07-29 10:36:00 Slim [facility] FERRITIN SERUM 2022-07-29 10:36:00 Kelsey [facility] HEPATIC FUNCTION PANEL 2022-07-29 10:36:00 Eloy Smalls [facility] ([id number]) (ALB,T.PRO,BILI [facility] T,BU/BC,ALT,AST,ALK PHOS) BASIC METABOLIC PANEL 2022-07-29 10:36:00 Eloy Smalls [facility] (NA, K, CL, CO2, Medical [facility] GLUCOSE, BUN, CREATININE, CA) CBC WITH DIFF 2022-07-29 10:36:00 Slim [facility] ACTIVATED PARTIAL 2022-07-29 07:13:00 Yordy Thornton [facility] URINALYSIS 2022-07-29 01:44:00 Darius [facility] CREATININE, URINE RANDOM 2022-07-29 01:44:00 Darius [facility] UREA NITROGEN, URINE 2022-07-29 01:44:00 Richard Mccoy [facility] SODIUM, URINE RANDOM 2022-07-29 01:44:00 Richard Mccoy [facility] POCT GLUCOSE (AUTOMATED) 2022-07-29 01:17:00 Yonis Mayo [facility] POCT GLUCOSE (AUTOMATED) 2022-07-28 21:09:00 Brennan Love [facility] BASIC METABOLIC PANEL 2022-07-28 19:01:00 Demetrice Sanchez [facility] (NA, K, CL, CO2, Medical Branch GLUCOSE, BUN, CREATININE, CA) ACTIVATED PARTIAL 2022-07-28 19:01:00 Yordy Thornton [facility] POCT GLUCOSE (AUTOMATED) 2022-07-28 17:12:00 Brennan Love [facility] BASIC METABOLIC PANEL 2022-07-28 14:28:[address] [facility] (NA, K, CL, CO2, [facility] GLUCOSE, BUN, CREATININE, CA) ACTIVATED PARTIAL 2022-07-28 14:28:00 Yordy Thornton [facility] POCT GLUCOSE (AUTOMATED) 2022-07-28 12:52:00 Brennan Love [facility] HB ECG ROUTINE & RHYTHM 2022-07-28 10:09:24 Scooter Barroso [facility] CREATINE KINASE 2022-07-28 08:02:[address] [facility] C-REACTIVE PROTEIN 2022-07-28 08:02:00 Yordy Thornton [facility] COMP. METABOLIC PANEL 2022-07-28 08:02:00 Yordy Thornton [facility] ([id number]) [facility] VANCOMYCIN RANDOM LEVEL 2022-07-28 08:02:00 Yordy Thornton [facility] SEDIMENTATION RATE 2022-07-28 08:02:00 Yordy Thornton [facility] CBC WITH DIFF 2022-07-28 08:02:[address] [facility] GLYCOSYLATED HEMOGLOBIN 2022-07-28 08:02:00 Yordy Thornton [facility] (A1C) [facility] PROTHROMBIN TIME / INR 2022-07-28 08:02:00 Yordy Thorntno [facility] ACTIVATED PARTIAL 2022-07-28 08:02:00 Yordy Thornton Russell [facility] THRFormerly [facility] MRSA / MSSA SCREEN BY 2022-07-28 08:02:00 Yordy Thornton [facility] PCR, NARES [facility] POCT GLUCOSE (AUTOMATED) 2022-07-28 08:01:00 Brennan Love [facility] COMP. METABOLIC PANEL 2022-07-19 02:58:00 Stephany Hurley [facility] ([id number]) [facility] CBC WITH DIFF 2022-07-19 02:58:00 Stephany Hurley [facility] NOTICE OF PRIVACY 2022-07-19 02:27:02 Doctor Unassigned, No [facility] PRACTICES Name [facility] CONSENT/REFUSAL FOR 2022-07-19 02:25:51 Doctor Unassigned, No [facility] Encounters Start End Encounter Admission Attending Care Care Encounter Source Date/Time Date/Time Type Type Clinicians Facility Department ID 2022-11-06 2022-11-06 Outpatient R RAMÓN KRAFT [facility] [id number] Univers 13:30:00 13:30:00 RAMÓN KRAFT [facility] 2022-08-15 2022-08-15 Outpatient R RENEE [facility] [id number] Univers 15:40:00 15:40:00 LEIGHTON JEFFERSON [facility] 2022-08-14 2022-08-14 Emergency X CHASITY [facility] ERT [id number] Univers 00:06:00 03:01:00 CAREY espana [facility] 2022-08-14 2022-08-14 [facility] 1.2.840.114 [id number] Univers 00:06:00 03:01:00 Carey CHAMBERS 350.1.13.10 i ty [facility] 4.2.7.2.686 [facility] [phone] [facility] 0[address] Branch 2022-08-08 2022-08-08 Outpatient R CIARA [facility] [id number] Univers 16:45:00 15:22:09 BLAS ity of [facility] 2022-08-07 2022-08-07 Orders Doctor LIBERTY 1.2.840.114 [id number] Univers 00:00:00 00:00:00 Only Unassigned, BRANDEE 350.1.13.10 ity of [place] [facility] 4.2.7.2.686 Suhas as [id number] [address] 2022-08-07 2022-08-07 Telephone Nimo [facility] 1.2.840.114 [id number] Univers 00:00:00 00:00:00 Ogestevan CHAM[place]ERS 350.1.13.10 [facility] [place] [phone] In dical [address] 2022-08-05 2022-08-05 Outpatient R RAMÓN KRAFT [facility] [id number] Univers 13:00:00 14:16:22 RAMÓN KRAFT ity [facility] 2022-08-05 2022-08-05 Office Nimo [facility] 1.2.840.114 [id number] Univers 13:00:00 14:16:22 Visit Ramón CH[place]ERS 350.1.13.10 [place] [id number] In dical NAL [address] [place] [address] 2022-08-05 2022-08-05 Patient Bao [facility] 1.2.840.114 [id number] Univers 00:00:00 00:00:00 Outreach Mari [place] 350.1.13.10 [place] [phone] In dical NAL [address] [place] [address] 2022-08-01 2022-08-01 Transition TANI Snow 1.2.840.114 [id number] Univers 00:00:00 00:00:00 of Care Alex MORALES 350.1.13.10 it[place] [phone] [facility] [address] 2022-08-01 2022-08-01 Telephone LIBERTY Mcneal 1.2.840.114 [id number] Univers 00:00:00 00:00:00 Clare IRVIN 350.1.13.10 it y of [facility] 4.2.7.2.686 [place] as [id number] [facility] 025 Branch 2022-07-28 2022-07-31 [facility] [id number] Univers 01:36:00 19:14:00 [facility] 2022-07-31 Hospital Brennan Love 1.2.840.114 [id number] Univers 01:36:00 19:14:00 Encounter Yonis Mayo 350.1.13.10 ity [facility] 4.2.7.2.686 [place]has as [phone] [facility] 096 Branch 2022-07-18 2022-07-19 Emergency [facility] 1.2.130.299 [id number] Univers 21:30:00 01:47:00 [facility].1.13.10 [facility] [place] [id number] [facility] 084 Branch 2022-07-18 2022-07-19 Emergency X [facility] ERT [id number] Univers 21:30:00 01:47:00 STEPHANY [facility] Results Test Description Test Time Test Comments Results Result Comments Source POCT GLUCOSE (AUTOMATED) 2022-08-14 07:30:03 Test Item Value Reference Range Interpretation Comme nts POCT GLU (test code = 7071807277) 175 mg/dL 70-110 H Lab Interpretation (test code = 97035-5) [facility] (NA, K, CL, CO2, GLUCOSE, BUN, CREATININE, CA)2022-08-14 06:49:10 Test Item Value Reference Range Interpretation Comments NA (test code = 137 mmol/L 135-145 9028801054) K (test code = 4.8 mmol/L 3.5-5.0 4330534824) CL (test code = 106 mmol/L 98-108 0090345051) CO2 TOTAL (test code = 25 mmol/L 23-31 3811139314) AGAP (test code = 6 2-16 5722860019) BUN (test code = 35 mg/dL 7-23 H 7863216317) GLUCOSE (test code = 187 mg/dL 70-110 H 8775715536) CREATININE (test code = 1.19 mg/dL 0.60-1.25 1331906658) CALCIUM (test code = 8.5 mg/dL 8.6-10.6 L 2597804641) eGFR (test code = 63.5 mL/min/1.73m2 9991183435) MOE (test code = MOE) Association of Glomerular Filtration Rate (GFR) and Staging of Kidney Disease* + --+ --+ ------+| GFR (mL/min/1.73 m2) ?| With Kidney Damage ?| ?Without Kidney Damage+ --------+ --------+ +| ?>90 ?| ?Stage one ?| ? Normal ?+ ---+ ---+ -------+| ?60-89 ?| ?Stage two ?| ? Decreased GFR ? + --+ --+ ------+| ?30-59 ?| ?Stage three ?| ? Stage three ? + --+ --+ ------+| ?15-29 ?| ?Stage four ? | ? Stage four ?+ ---+ ---+ -------+| ?<15 (or dialysis) ? ?| ?Stage five ? | ? Stage five ?+ ---+ ---+ -------+ *Each stage assumes the associated GFR level has been in effect for at least three months. ?Stages 1 to 5, with or without kidney disease, indicate chronic kidney disease. Notes: Determination of stages one and two (with eGFR >59mL/min/1.73 m2) requires estimation of kidney damage for at least three months as defined by structural or functional abnormalities of the kidney, manifested by either:Pathological abnormalities or Markers of kidney damage (including abnormalities in the composition of the blood or urine or abnormalities in imaging tests). Lab Interpretation Abnormal (test code = 83856-5) [facility] WITH [id number] 06:35:09 Test Item Value Reference Range Interpretation Comments WBC (test code = 6.59 See_Comment [Automated 6690-2) message] The sy stem which generated this result transmitted reference range : 4.20 - 10.70 10*3/?L. The reference range was not used to interpret this result as normal/abnormal . RBC (test code = 3.10 See_Comment L [Automated 789-8) message] The sy stem which generated this result transmitted reference range : 4.26 - 5.52 10*6/?L. The reference range was not used to interpret this result as normal/abnormal . HGB (test code = 8.7 g/dL 12.2-16.4 L 718-7) HCT (test code = 28.5 % 38.4-49.3 L 4544-3) MCV (test code = 91.9 fL 81.7-95.6 787-2) MCH (test code = 28.1 pg 26.1-32.7 785-6) MCHC (test code = 30.5 g/dL 31.2-35.0 L 786-4) RDW-SD (test code = 58.6 fL 38.5-51.6 H 90423-8) RDW-CV (test code = 17.5 % 12.1-15.4 H 788-0) PLT (test code = 328 See_Comment [Automated 777-3) message] The sy stem which generated this result transmitted reference range : 150 - 328 10*3/ ?L. The reference r maggi was not used to interpret this result as normal/abnormal . MPV (test code = 10.1 fL 9.8-13.0 67144-4) NRBC/100 WBC (test 0.0 See_Comment [Automat ed code = 8847806309) message] The system which generated this result transmitted reference range : 0.0 - 10.0 /100 WBCs. The refer ence range was not u sed to interpret th is result as normal/abnormal . NRBC x10^3 (test code See_Comment [Auto mated = 2047731607) message] The s ystem which generated this result transmitted reference range : 10*3/?L. The reference range was not used to interpret this result as normal/abnormal . GRAN MAT (NEUT) % 63.9 % (test code = 770-8) IMM GRAN % (test code 0.50 % = 3010306852) LYMPH % (test code = 24.9 % 736-9) MONO % (test code = 7.4 % 5905-5) EOS % (test code = 2.4 % 713-8) BASO % (test code = 0.9 % 706-2) GRAN MAT x10^3(ANC) 4.21 10*3/uL 1.99-6.95 (test code = 7215771951) IMM GRAN x10^3 (test 0.03 10*3/uL 0.00-0.06 code = 1958704559) LYMPH x10^3 (test code 1.64 10*3/uL 1.09-3.23 = 731-0) MONO x10^3 (test code 0.49 10*3/uL 0.36-1.02 = 742-7) EOS x10^3 (test code = 0.16 10*3/uL 0.06-0.53 711-2) BASO x10^3 (test code 0.06 10*3/uL 0.01-0.09 = 704-7) Lab Interpretation Abnormal (test code = 90015-1) [facility] GLUCOSE (AUTOMATED)2022-07-31 22:28:25 Test Item Value Reference Range Interpretation Comments POCT GLU (test code = 9289050285) 116 mg/dL 70-110 H Lab Interpretation (test code = Abnormal 88100-6) [facility] GLUCOSE (AUTOMATED)2022-07-31 17:14:36 Test Item Value Reference Range Interpretation Comments POCT GLU (test code = 5834706566) 136 mg/dL 70-110 H Lab Interpretation (test code = Abnormal 70831-5) [facility] GLUCOSE (AUTOMATED)2022-07-31 01:47:10 Test Item Value Reference Range Interpretation Comments POCT GLU (test code = 1413421519) 141 mg/dL 70-110 H Lab Interpretation (test code = Abnormal 65073-7) [facility] GLUCOSE (AUTOMATED)2022-07-30 23:18:09 Test Item Value Reference Range Interpretation Comments POCT GLU (test code = 0593230757) 140 mg/dL 70-110 H Lab Interpretation (test code = Abnormal 70117-7) [facility] GLUCOSE (AUTOMATED)2022-07-30 18:43:38 Test Item Value Reference Range Interpretation Comments POCT GLU (test code = 4975835465) 165 mg/dL 70-110 H Lab Interpretation (test code = Abnormal 83027-8) [facility] GLUCOSE (AUTOMATED)2022-07-30 14:19:36 Test Item Value Reference Range Interpretation Comments POCT GLU (test code = 3960017920) 90 mg/dL 70-110 Lab Interpretation (test code = Normal 30430-9) [facility] GLUCOSE (AUTOMATED)2022-07-30 01:37:57 Test Item Value Reference Range Interpretation Comments POCT GLU (test code = 3939732498) 100 mg/dL 70-110 Lab Interpretation (test code = Normal 98365-3) [facility] GLUCOSE (AUTOMATED)2022-07-29 22:44:33 Test Item Value Reference Range Interpretation Comments POCT GLU (test code = 0076741179) 113 mg/dL 70-110 H Lab Interpretation (test code = Abnormal 94731-9) [facility] GLUCOSE (AUTOMATED)2022-07-29 18:36:00 Test Item Value Reference Range Interpretation Comments POCT GLU (test code = 9185084091) 108 mg/dL 70-110 Lab Interpretation (test code = Normal 33408-5) [facility] GLUCOSE (AUTOMATED)2022-07-29 13:47:37 Test Item Value Reference Range Interpretation Comments POCT GLU (test code = 6258716328) 91 mg/dL 70-110 Lab Interpretation (test code = Normal 34594-2) [facility] GLUCOSE (AUTOMATED)2022-07-29 01:19:16 Test Item Value Reference Range Interpretation Comments POCT GLU (test code = 2262890962) 143 mg/dL 70-110 H Lab Interpretation (test code = Abnormal 54264-9) [facility] GLUCOSE (AUTOMATED)2022-07-28 21:10:26 Test Item Value Reference Range Interpretation Comments POCT GLU (test code = 7583022588) 148 mg/dL 70-110 H Lab Interpretation (test code = Abnormal 67252-0) [facility] GLUCOSE (AUTOMATED)2022-07-28 17:13:13 Test Item Value Reference Range Interpretation Comments POCT GLU (test code = 6293898507) 199 mg/dL 70-110 H Lab Interpretation (test code = Abnormal 65104-5) [facility] GLUCOSE (AUTOMATED)2022-07-28 12:53:47 Test Item Value Reference Range Interpretation Comments POCT GLU (test code = 2838185913) 113 mg/dL 70-110 H Lab Interpretation (test code = Abnormal 97408-2) [facility] GLUCOSE (AUTOMATED)2022-07-28 08:02:41 Test Item Value Reference Range Interpretation Comments POCT GLU (test code = 2555482949) 126 mg/dL 70-110 H Lab Interpretation (test code = Abnormal 45733-3) [facility]. Metabolic Panel (28398)2022-07-19 03:26:53 Test Item Value Reference Range Interpretation Comments NA (test code = 140 mmol/L 135-145 8508364355) K (test code = 5.3 mmol/L 3.5-5.0 H 4836648731) CL (test code = 101 mmol/L 98-108 8897576071) CO2 TOTAL (test code = 27 mmol/L 23-31 0699042964) AGAP (test code = 12 2-16 1387966035) BUN (test code = 30 mg/dL 7-23 H 9586197581) GLUCOSE (test code = 189 mg/dL 70-110 H 4892128271) CREATININE (test code = 1.24 mg/dL 0.60-1.25 7910932357) TOTAL BILI (test code = 0.4 mg/dL 0.1-1.3 5992693910) CALCIUM (test code = 9.3 mg/dL 8.6-10.6 0535780177) T PROTEIN (test code = 8.0 g/dL 6.3-8.2 2678444973) ALBUMIN (test code = 4.1 g/dL 3.5-5.0 3428060355) ALK PHOS (test code = 107 U/L 34-122 7649690073) ALTv (test code = 43 U/L 5-50 1742-6) AST(SGOT) (test code = 38 U/L 13-40 8312354458) eGFR (test code = 60.5 mL/min/1.73m2 3123909451) MOE (test code = MOE) Association of Glomerular Filtration Rate (GFR) and Staging of Kidney Disease* + --+ --+ ------+| GFR (mL/min/1.73 m2) ?| With Kidney Damage ?| ?Without Kidney Damage+ --------+ --------+ +| ?>90 ?| ?Stage one ?| ? Normal ?+ ---+ ---+ -------+| ?60-89 ?| ?Stage two ?| ? Decreased GFR ? + --+ --+ ------+| ?30-59 ?| ?Stage three ?| ? Stage three ? + --+ --+ ------+| ?15-29 ?| ?Stage four ? | ? Stage four ?+ ---+ ---+ -------+| ?<15 (or dialysis) ? ?| ?Stage five ? | ? Stage five ?+ ---+ ---+ -------+ *Each stage assumes the associated GFR level has been in effect for at least three months. ?Stages 1 to 5, with or without kidney disease, indicate chronic kidney disease. Notes: Determination of stages one and two (with eGFR >59mL/min/1.73 m2) requires estimation of kidney damage for at least three months as defined by structural or functional abnormalities of the kidney, manifested by either:Pathological abnormalities or Markers of kidney damage (including abnormalities in the composition of the blood or urine or abnormalities in imaging tests). Lab Interpretation Abnormal (test code = 72370-2) [facility] with [id number] 03:23:09 Test Item Value Reference Range Interpretation Comments WBC (test code = 6.48 See_Comment [Automated 6851-2) message] The sy stem which generated this result transmitted reference range : 4.20 - 10.70 10*3/?L. The reference range was not used to interpret this result as normal/abnormal . RBC (test code = 4.08 See_Comment L [Automated 168-2) message] The sy stem which generated this result transmitted reference range : 4.26 - 5.52 10*6/?L. The reference range was not used to interpret this result as normal/abnormal . HGB (test code = 11.2 g/dL 12.2-16.4 L 718-7) HCT (test code = 36.6 % 38.4-49.3 L 4544-3) MCV (test code = 89.7 fL 81.7-95.6 787-2) MCH (test code = 27.5 pg 26.1-32.7 785-6) MCHC (test code = 30.6 g/dL 31.2-35.0 L 786-4) RDW-SD (test code = 49.0 fL 38.5-51.6 95056-6) RDW-CV (test code = 15.0 % 12.1-15.4 788-0) PLT (test code = 542 See_Comment H [Automated 777-3) message] The sy stem which generated this result transmitted reference range : 150 - 328 10*3/ ?L. The reference r maggi was not used to interpret this result as normal/abnormal . MPV (test code = 9.6 fL 9.8-13.0 L 04940-8) NRBC/100 WBC (test 0.0 See_Comment [Automat ed code = 6219801112) message] The system which generated this result transmitted reference range : 0.0 - 10.0 /100 WBCs. The refer ence range was not u sed to interpret th is result as normal/abnormal . NRBC x10^3 (test code See_Comment [Auto mated = 7894630056) message] The s ystem which generated this result transmitted reference range : 10*3/?L. The reference range was not used to interpret this result as normal/abnormal . GRAN MAT (NEUT) % 60.7 % (test code = 770-8) IMM GRAN % (test code 0.50 % = 5069056148) LYMPH % (test code = 28.2 % 736-9) MONO % (test code = 6.9 % 5905-5) EOS % (test code = 2.5 % 713-8) BASO % (test code = 1.2 % 706-2) GRAN MAT x10^3(ANC) 3.93 10*3/uL 1.99-6.95 (test code = 8062184596) IMM GRAN x10^3 (test 0.03 10*3/uL 0.00-0.06 code = 1774325290) LYMPH x10^3 (test code 1.83 10*3/uL 1.09-3.23 = 731-0) MONO x10^3 (test code 0.45 10*3/uL 0.36-1.02 = 742-7) EOS x10^3 (test code = 0.16 10*3/uL 0.06-0.53 711-2) BASO x10^3 (test code 0.08 10*3/uL 0.01-0.09 = 704-7) Lab Interpretation Abnormal (test code = 70068-2) [facility]
[2022-08-15 08:00] LABS: Specific Gravity 1.015 (1.005-1.030); Urine Bacteria >50 /HPF (<20); Urine Bilirubin NEGATIVE (Negative); Urine Blood 1+ (Negative); Urine Clarity Turbid (Clear); Urine Color Light-Yellow (Yellow); Urine Glucose 1+ (Negative); Urine Mucus Slight /HPF (None Seen); Urine Protein 1+ (Negative); Urine Urobilinogen Normal (Normal); Urine WBC Clump Occasional /HPF (None Seen); Urine pH 5.5 (5.0-7.0)
--- NOTE | 2022-08-15 09:23 | ER ---
Nurse's Notes [facility] Name: Shivam Block Age: 57 yrs Sex: Male : 1965 Arrival Date: 08/15/2022 Time: 06:40 Bed 17 Private MD: Diagnosis: Other seizures;UTI/ Urinary tract infection, site not specified;Fever, unspecified;Anemia, unspecified;Sepsis, unspecified organism Presentation: 08/15 07:12 Chief complaint: Patient states: Seizure activity again at home today. Had seizures ll1 08/13 went to [facility]. Wound to E stump. Coronavirus screen: Client denies travel out of the [place] in the last 14 days. Ebola Screen: Patient denies travel to an Ebola-affected area in the 21 days before illness onset. Initial Sepsis Screen: Does the patient meet any 2 criteria? HR > 90 bpm. No. Patient's initial sepsis screen is negative. Does the patient have a suspected source of infection? Yes: Skin breakdown/wound. Risk Assessment: Do you want to hurt yourself or someone else? Patient reports no desire to harm self or others. Onset of symptoms was August 15, 2022. 07:12 Method Of Arrival: Wheelchair ll1 07:12 Acuity: TERRANCE 2 ll1 Triage Assessment: 07:14 General: Appears uncomfortable, Behavior is calm, cooperative, appropriate for age. ll1 Pain: Denies pain. Neuro: Reports weakness seizures. Cardiovascular: No deficits noted. 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 - Social history:: Smoking status: unknown. Screenin:30 [facility] ED Fall Risk Assessment (Adult) History of falling in the last 3 months, db including since admission No falls in past 3 months (0 pts) Confusion or Disorientation No (0 pts) Intoxicated or Sedated No (0 pts) Impaired Gait No (0 pts) Mobility Assist Device Used No (0 pt) Altered Elimination No (0 pt) Score/Fall Risk Level 0 - 2 = Low Risk Oriented to surroundings, Maintained a safe environment. Abuse screen: Denies threats or abuse. Denies injuries from another. Nutritional screening: No deficits noted. Tuberculosis screening: No symptoms or risk factors identified. Assessment: 09:29 Reassessment: Patient appears in no apparent distress at this time. Patient and/or db family updated on plan of care and expected duration. Pain level reassessed. Patient is alert, oriented x 3, equal unlabored respirations, skin warm/dry/pink. seizure at 0200 today. General: Appears in no apparent distress. Behavior is calm, cooperative. 09:55 Reassessment: Patient appears in no apparent distress at this time. Patient and/or nj1 family updated on plan of care and expected duration. Pain level reassessed. Pt resting with eyes close upon this RN arrival to room. Pt denies needs at this time. Medications given, see JUN. 11:11 Reassessment: Patient and/or family updated on plan of care and expected duration. Pain nj1 level reassessed. Patients sister and brother in law here, Dr Corbett has updated them on care. They want to use code "6245" to give out information. Verónica Ward [phone] and Milton Rhodes [phone]. 11:30 Reassessment: Patient appears in no apparent distress at this time. Patient is alert, nj1 oriented x 3, equal unlabored respirations, skin warm/dry/pink. Resting with eyes closed at this time. Able to follow commands and open eyes upon request. 12:30 Reassessment: Patient appears in no apparent distress at this time. No changes from nj1 previously documented assessment. Patient and/or family updated on plan of care and expected duration. Pain level reassessed. Pt asleep, wakes up when addressed by name. 14:00 Reassessment: Patient appears in no apparent distress at this time. Patient and/or nj1 family updated on plan of care and expected duration. Pain level reassessed. Pt resting/sleeping. Vital Signs: 07:12 BP 158 / 78; Pulse 93; Resp 18; Temp 103; Pulse Ox 94% on R/A; Pain 0/10; ll1 08:11 Temp 102.7; ll1 11:29 BP 99 / 40; Pulse 76; Resp 18; Temp 100.9(O); Pulse Ox 92% on R/A; nj1 12:30 BP 116 / 45; Pulse 73; Resp 18; Temp 100.1(O); Pulse Ox 95% on R/A; nj1 14:00 BP 110 / 52; Pulse 77; Resp 19; Pulse Ox 100% ; nj1 14:15 Temp 100.3(O); nj1 20:02 BP 113 / 62; Pulse 61; Resp 18 S; Temp 98.7(O); Pulse Ox 93% on R/A; ha1 07:12 Pain Scale: Adult ll1 Perlita Coma Score: 07:14 Eye Response: spontaneous(4). Motor Response: obeys commands(6). Verbal Response: ll1 oriented(5). Total: 15. ED Course: 06:43 Patient arrived in ED. ja2 06:59 Yordy Corbett DO is Attending Physician. ms3 07:14 Triage completed. ll1 07:15 Arm band placed on. ll1 07:34 Urinalysis w/ reflexes Sent. ll1 08:12 Sonya Ibanez, RN is Primary Nurse. ko1 08:41 Hue Elizalde, [place] is Primary Nurse. db 09:04 Chest Single View XRAY In Process Unspecified. EDMS 09:23 Jon Villareal MD is Hospitalizing Provider. ms3 09:55 Patient has correct armband on for positive identification. Bed in low position. Call nj light in reach. Side rails up X 1. 17:35 Wound Culture Sent. nj1 19:10 Seizure precautions initiated. ha1 21:35 No provider procedures requiring assistance completed. ha1 21:35 Patient admitted, IV remains in place. ha1 Administered Medications: 09:58 Drug: Acetaminophen PO 1000 mg Route: PO; db 10:30 Follow up: Response: No adverse reaction nj1 09:59 Drug: Rocephin - Rocephin (cefTRIAXone) IVPB 1 grams Route: IVPB; Infused Over: 30 db mins; Site: right antecubital; 10:30 Follow up: Response: No adverse reaction; IV Status: Completed infusion; IV Intake: [id number] 12:35 Drug: NS 0.9% IV 500 ml Route: IV; Rate: 500 ml; Site: right antecubital; nj1 14:35 Follow up: Response: No adverse reaction nj1 16:30 Follow up: IV Status: Completed infusion; IV Intake: 500ml nj1 Medication: 21:35 VIS not applicable for this client. ha1 Intake: 10:30 IV: 50ml; Total: 50ml. nj1 16:30 IV: 500ml; Total: 550ml. nj1 Outcome: 09:23 Decision to Hospitalize by Provider. ms3 21:35 Patient left the ED. ha1 21:35 Admitted to Med/surg accompanied by nurse, via stretcher, room 220, with chart, Report ha1 called to [place] Kwong 21:35 Condition: stable 21:35 Instructed on the need for admit. Signatures: Dispatcher [employer] EDMS Shimon Mariscal, RN RN ll1 Yordy Corbett DO DO ms3 Alexandra Somers ja2 Althea Trevino RN RN ha1 Sonya Ibanez, RN RN ko1 Hue Elizalde, RN RN db Eliana Dyson RN RN nj1 Corrections: (The following items were deleted from the chart) 07:14 07:12 Chief complaint: Patient states: Seizure activity again at home today. Had ll1 seizures 08/13 went to [facility] ll1
--- NOTE | 2022-08-15 09:23 | EDPHYS ---
Physician Documentation [facility] Name: Shivam Block Age: 57 yrs Sex: Male : 1965 Arrival Date: 08/15/2022 Time: 06:40 Bed 17 Private MD: ED Physician Yordy Corbett HPI: 08/15 07:28 This 57 yrs old Male presents to ER via Wheelchair with complaints of Seizure. ms3 07:28 57-year-old male with past medical history of seizures, atrial fibrillation, ms3 hypertension, diabetes presents to the emergency department for seizure. Patient states he was seen at [facility] for seizures on August 13. Patient states he was started on Depakote at that time. This morning patient was trying to get the restroom when he had a seizure. Patient denies pain or symptoms at this time. 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 - Social history:: Smoking status: unknown. ROS: 07:28 Constitutional: Negative for fever, and chills. Neck: Negative for injury, pain, and ms3 swelling, Cardiovascular: Negative for chest pain, and palpitations. Respiratory: Negative for shortness of breath, cough, wheezing, and pleuritic chest pain, Abdomen/GI: Negative for abdominal pain, nausea, vomiting, diarrhea, and constipation, MS/Extremity: Negative for injury and deformity, Skin: Negative for injury, rash, and discoloration. 07:28 Neuro: Positive for seizure activity. 07:28 All other systems are negative. Exam: 07:28 Constitutional: This is a well developed, well nourished patient who is awake, alert, ms3 and in no acute distress. Head/Face: Normocephalic, atraumatic. Neck: Trachea midline, no cervical lymphadenopathy. Supple, full range of motion without nuchal rigidity, or vertebral point tenderness. No Meningismus. Chest/axilla: Normal chest wall appearance and motion. Nontender with no deformity. Cardiovascular: Regular rate and rhythm with a normal S1 and S2. No gallops, murmurs, or rubs. Normal PMI, no JVD. No pulse deficits. Respiratory: Lungs have equal breath sounds bilaterally, clear to auscultation and percussion. No rales, rhonchi or wheezes noted. No increased work of breathing, no retractions or nasal flaring. Abdomen/GI: Soft, non-tender, with normal bowel sounds. No distension or tympany. No guarding or rebound. No evidence of tenderness throughout. 07:28 Musculoskeletal/extremity: Bilateral BKA.. 08:55 ECG was reviewed by the Attending Physician. ms3 Vital Signs: 07:12 BP 158 / 78; Pulse 93; Resp 18; Temp 103; Pulse Ox 94% on R/A; Pain 0/10; ll1 08:11 Temp 102.7; ll1 11:29 BP 99 / 40; Pulse 76; Resp 18; Temp 100.9(O); Pulse Ox 92% on R/A; nj1 12:30 BP 116 / 45; Pulse 73; Resp 18; Temp 100.1(O); Pulse Ox 95% on R/A; nj1 14:00 BP 110 / 52; Pulse 77; Resp 19; Pulse Ox 100% ; nj1 14:15 Temp 100.3(O); nj1 20:02 BP 113 / 62; Pulse 61; Resp 18 S; Temp 98.7(O); Pulse Ox 93% on R/A; ha1 07:12 Pain Scale: Adult ll1 Perlita Coma Score: 07:14 Eye Response: spontaneous(4). Motor Response: obeys commands(6). Verbal Response: ll1 oriented(5). Total: 15. MDM: 07:15 Patient medically screened. ms3 07:28 Differential diagnosis: seizure, UTI versus pneumonia. ms3 11:19 Data reviewed: vital signs, nurses notes, lab test result(s), radiologic studies, and ms3 as a result, I will admit patient. Consideration of Admission/Observation Patient was admitted/placed on observation. Management of patient was discussed with the following: Hospitalist: Discussed case with Dr Villareal and he accepts patient.. I considered the following discharge prescriptions or medication management in the emergency department Medications were administered in the Emergency Department. See MAR. Independent interpretation of the following test(s) in the Emergency Department X-Ray: My interpretation is CXR image reviewed by me negative.. 11:21 Historians other than the Patient:. Care significantly affected by the following ms3 chronic conditions: Diabetes, Hypertension. Care significantly affected by the following Social Determinants of Health: Poor access to healthcare and/or lack of insurance. Counseling: I had a detailed discussion with the patient and/or guardian regarding: the historical points, exam findings, and any diagnostic results supporting the discharge/admit diagnosis, lab results, radiology results, the need for further work-up and treatment in the hospital. ED course: Discussed labs and imaging with patient and his family. Patient remained stable in emergency department. Patient and family agreeable to admission. All questions were answered. 08/15 07:16 Order name: Blood Culture Adult (2) ms3 08/15 07:16 Order name: CBC with Diff; Complete Time: 09:35 ms3 08/15 07:16 Order name: CMP; Complete Time: 09:57 ms3 08/15 07:16 Order name: Lactate w/ 2H reflex if indic.; Complete Time: 10:52 ms3 08/15 07:16 Order name: Protime (+inr); Complete Time: 09:35 ms3 08/15 07:16 Order name: Ptt, Activated; Complete Time: 09:35 ms3 08/15 07:16 Order name: Urinalysis w/ reflexes; Complete Time: 09:15 ms3 08/15 08:06 Order name: Urine Culture EDMS 08/15 09:04 Order name: Glucose, Ancillary Testing; Complete Time: 09:15 EDMS 08/15 14:33 Order name: Urinalysis w/ reflexes EDMS 08/15 14:33 Order name: Basic Metabolic Panel EDMS 08/15 14:33 Order name: Basic Metabolic Panel EDMS 08/15 14:33 Order name: Basic Metabolic Panel EDMS 08/15 14:33 Order name: Basic Metabolic Panel EDMS 08/15 14:33 Order name: CBC with Automated Diff EDMS 08/15 14:33 Order name: CBC with Automated Diff EDMS 08/15 14:33 Order name: CBC with Automated Diff EDMS 08/15 14:33 Order name: CBC with Automated Diff EDMS 08/15 14:33 Order name: Wound Culture EDMS 08/15 16:31 Order name: Glucose, Ancillary Testing; Complete Time: 18:28 EDMS 08/15 17:07 Order name: Urinalysis W/Microscopic cp 08/15 17:24 Order name: Urinalysis W/Microscopic; Complete Time: 18:28 EDMS 08/15 07:16 Order name: Chest Single View XRAY; Complete Time: 09:27 ms3 08/15 07:16 Order name: EKG; Complete Time: 07:17 ms3 08/15 07:16 Order name: Accucheck; Complete Time: 09:29 ms3 08/15 07:16 Order name: Cardiac monitoring; Complete Time: 09:29 ms3 08/15 07:16 Order name: EKG - Nurse/Tech; Complete Time: 08:35 ms3 08/15 07:16 Order name: IV Saline Lock - Large Bore; Complete Time: 09:29 ms3 08/15 07:16 Order name: Labs collected and sent; Complete Time: 09:29 ms3 08/15 07:16 Order name: O2 Per Protocol; Complete Time: 07:25 ms3 08/15 07:16 Order name: O2 Sat Monitoring; Complete Time: 07:25 ms3 08/15 07:16 Order name: Vital Signs; Complete Time: 07:25 ms3 08/15 09:17 Order name: Seizure Precautions; Complete Time: 09:21 ms3 EC:55 Rate is 93 beats/min. Rhythm is irregular. AK interval is normal. QRS interval is ms3 prolonged. Clinical impression: NSR w/ Non-specific ST/T Changes. Interpreted by me. Reviewed by me. Administered Medications: 09:58 Drug: Acetaminophen PO 1000 mg Route: PO; db 10:30 Follow up: Response: No adverse reaction nj1 09:59 Drug: Rocephin - Rocephin (cefTRIAXone) IVPB 1 grams Route: IVPB; Infused Over: 30 db mins; Site: right antecubital; 10:30 Follow up: Response: No adverse reaction; IV Status: Completed infusion; IV Intake: [id number] 12:35 Drug: NS 0.9% IV 500 ml Route: IV; Rate: 500 ml; Site: right antecubital; nj1 14:35 Follow up: Response: No adverse reaction nj1 16:30 Follow up: IV Status: Completed infusion; IV Intake: 500ml nj1 Disposition Summary: 08/15/22 09:23 Hospitalization Ordered Hospitalization Status: Inpatient Admission ms3 Provider: Jon Villareal ms3 Location: Telemetry/MedSur (Inpatient) ms3 Condition: Stable ms3 Problem: new ms3 Symptoms: are unchanged ms3 Bed/Room Type: Standard ms3 Room Assignment: 220(08/15/22 19:54) cg Diagnosis - Other seizures ms3 - UTI/ Urinary tract infection, site not specified ms3 - Fever, unspecified ms3 - Anemia, unspecified ms3 - Sepsis, unspecified organism ms3 Forms: - Medication Reconciliation Form ms3 - SBAR form ms3 Signatures: Dispatcher [employer] EDMS Brian Herrera, ELISA-C ELECTRO MECHANICAL ENGINEER-Cla1 Cary Ortiz RN RN cg Shimon Mariscal RN RN ll1 Yordy Corbett DO DO ms3 Althea Trevino RN RN ha1 Hue Elizalde RN RN db Eliana Dyson RN RN nj1 Corrections: (The following items were deleted from the chart) 19:54 09:23 ms3 cg
--- NOTE | 2022-08-15 09:24 | RAD REPORT ---
EXAM DESCRIPTION: RAD - Chest Single View - 08/15/2022 9:02 am CLINICAL HISTORY: FEVER Chest pain. COMPARISON: Chest Single View dated 07/27/2022 FINDINGS: Portable technique limits examination quality. Interstitial markings are mildly prominent. The heart is upper limit to mildly prominent in size. No displaced fractures. IMPRESSION: Mild CHF.
[2022-08-15 09:27] LABS: Absolute Lymphocytes (CBC) 0.5 K/uL (0.7-4.9); Hematocrit 28.3 % (39.6-49.0); Lymphocytes % 4.2 % (15.3-44.8); MCV 87.5 fL (80-100); MPV 7.8 fL (7.6-11.3); RBC Red Blood Cell Count 3.24 M/uL (4.33-5.43)
[2022-08-15 09:35] LABS: Protime INR 1.33
[2022-08-15] MEDS ORDERED: CEFTRIAXONE 1000 MG/VIAL ONE (09:46)
[2022-08-15] MEDS ORDERED: ACETAMINOPHEN 500 MG TAB ONE (09:46)
[2022-08-15] MEDS ORDERED: NA CHLORIDE 0.9% 50 ML ONE (09:47)
[2022-08-15 09:51] LABS: Albumin 3.1 g/dL (3.4-5.0); Bilirubin Total 0.2 mg/dL (0.2-1.0); Potassium 4.1 mEq/L (3.5-5.1); Protein, Total 7.2 g/dL (6.4-8.2)
[2022-08-15] MEDS ORDERED: NA CHLORIDE 0.9% 0 ML ONE (12:32)
[2022-08-15] MEDS ORDERED: NA CHLORIDE 0.9% 500 ML ONE (13:05)
[2022-08-15] MEDS ORDERED: ONDANSETRON 4 MG/2 ML VIAL IV PRN (14:26)
[2022-08-15] MEDS ORDERED: ACETAMINOPHEN 500 MG TAB PO PRN (14:26)
--- NOTE | 2022-08-15 14:34 | P.HP ---
Certification for Inpatient Patient admitted to: Inpatient With expected LOS: >2 Midnights Patient will require the following post-hospital care: None Practitioner: I am a practitioner with admitting privileges, knowledge of patient current condition, hospital course, and medical plan of care. Services: Services provided to patient in accordance with Admission requirements found in Title 42 Section 412.3 of the Code of Federal Regulations Patient History Date of Service: 08/15/22 Reason for admission: Fevers and seizures History of Present Illness: This is a 57-year-old male with past history significant atrial fib, hypertension, diabetes unsure if patient is insulin-dependent or not and seizures. Patient comes to the emergency room with complaints of fevers and seizures. Patient was evaluated at the bedside, patient is very poor historian. Some of history obtained from nurse. It was reported that patient had a seizure today while attempting to use the bathroom. Patient did have a previous seizure back on the of this month, where he was treated at [facility]. It was reported patient present with a fever of 103, his temperature is currently down to 100.1. Patient also presents with a wound to his left stump. It was reported that patient had a wound VAC but the wound VAC was removed during his stay at [facility] a few days ago. No further seizures reported during the ED stay. Patient will be admitted under care of Dr. Villareal. Infectious disease and neurology will be consulted for further management. Allergies shellfish derived Allergy (Verified 08/15/22 16:04) Itching/Hives/Rash - Past Medical/Surgical History -: atrial fib -: HTN -: DM - Social History Smoking Status: Unknown if ever smoked Place of Residence: Home Review of Systems 10-point ROS is otherwise unremarkable General: Weakness Physical Examination - Vital Signs Temperature: 100.1 F Blood Pressure: 110/52 Pulse: 90 Respirations: 20 Pulse Ox (%): 100 - Physical Exam General: Alert, In no apparent distress HEENT: Atraumatic, Normocephalic Neck: Supple, 2+ carotid pulse no bruit Respiratory: Clear to auscultation bilaterally, Normal air movement Cardiovascular: Normal pulses Capillary refill: <2 Seconds Gastrointestinal: Normal bowel sounds Musculoskeletal: Other (BLE BKA) Integumentary: Other (chronic wound to left stump) Neurological: Normal tone - Studies Laboratory Data (last 24 hrs) 08/15/22 09:14: PT 14.6 H, INR 1.33, APTT 27.9 08/15/22 09:14: Sodium 137, Potassium 4.1, BUN 28 H, Creatinine 1.16, Glucose 267 H, Total Bilirubin 0.2, AST 9 L, ALT 19, Alkaline Phosphatase 82 08/15/22 09:14: WBC 13.00 H, Hgb 9.0 L, Hct 28.3 L, Plt Count 366 Assessment and Plan - Plan Assessment Febrile seizures UTI Atrial fibrillation Hypertension Diabetes Chronic wound to left stump Plan Continue IV antibiotics Blood cultures and wound cultures pending Infectious disease consulted recommendations appreciated Neurology consulted recommendations appreciated Seizure protocol and aspiration precautions Resume home medications when appropriate Patient may need a wound consult for wound management, was reported that patient had a wound VAC but it was removed during his last hospitalization DVT PPx-Lovenox Full code Discharge Plan: Home Plan to discharge in: Greater than 2 days - Advance Directives Does patient have a Living Will: No Does patient have a Durable POA for Healthcare: No - Code Status/Comfort Care Code Status Assessed: Yes (Full code) Critical Care: No Time Spent Managing Pts Care (In Minutes): 50
[2022-08-15] MEDS ORDERED: ENOXAPARIN 40 MG/0.4 ML SQ SCH (15:00)
[2022-08-15] MEDS ORDERED: ENOXAPARIN 40 MG/0.4 ML SQ ONE (16:20)
[2022-08-15] MEDS: INSULIN -REGULAR HUMAN 50 UNIT/0.5 ML ML SQ SCH ×2 (16:21→21:00)
[2022-08-15 17:24] LABS: Specific Gravity 1.017 (1.005-1.030); Urine Bacteria 20-50 /HPF (<20); Urine Bilirubin NEGATIVE (Negative); Urine Blood 1+ (Negative); Urine Clarity Clear (Clear); Urine Color Light-Yellow (Yellow); Urine Glucose TRACE (Negative); Urine Mucus Slight /HPF (None Seen); Urine Protein 1+ (Negative); Urine RBC <5 /HPF (None Seen); Urine Urobilinogen Normal (Normal); Urine WBC Clump Rare /HPF (None Seen); Urine pH 5.5 (5.0-7.0)
[2022-08-15] MEDS: CEFTRIAXONE 1,000 MG in NA CHLORIDE 0.9% 50 ML IVPB SCH (22:14)
[2022-08-15 23:17] VITALS: BMI 37.1
[2022-08-15] MEDS ORDERED: DIVALPROEX ER 250 MG TAB PO SCH (23:45)
[2022-08-16 06:46] LABS: Potassium 4.3 mEq/L (3.5-5.1); Valproic Acid (Depakene) Level 18.6 mcg/mL (50.0-100.0)
--- NOTE | 2022-08-16 07:03 | EKG ---
Test Date: 2022-08-15 Test Time: 08:33:11 Hat Lacer: [place] MEASUREMENT RESULTS: Intervals: Rate: 93 DE: 188 QRSD: 112 QT: 360 QTc: 447 [place]: P: 57 DE: 188 QRS: 231 T: 17 INTERPRETIVE STATEMENTS: Sinus rhythm with occasional premature ventricular complexes and fusion complexes Low voltage QRS Right bundle branch block Inferior infarct, age undetermined Possible Anterolateral infarct, age undetermined Abnormal ECG Compared to ECG 07/27/2022 12:47:28 Fusion complex(es) now present Ventricular premature complex(es) now present Low QRS voltage now present Sinus bradycardia no longer present Myocardial infarct finding still present Electronically Signed On 08-16-22 07:00:01 CDT by Joshua Diaz
--- NOTE | 2022-08-16 07:18 | P.PN ---
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 Seizures 2 episodes, 1st with last severe infection of L stump wound - septic shock at that time 2nd episode just prior to this admission started depakote at [facility] last hospitalization ~3 weeks ago reports he got previous MRI done at [facility] - patient does not know results Neurology consulted Seizure protocol and aspiration precautions UTI urine culture 08/16 growing mixed yadi, +GNR ID consulted continue antibiotics Blood culture pending Chronic wound to left stump patient had a wound VAC but it was removed during his last hospitalization wound culture pending General Surgery consulted DM2 insulin dependant sliding scale insulin A-fib Hypertension Continue home medications VTE: Eliquis Code: Full Dispo: Home 2-3 days
[2022-08-16] MEDS: INSULIN -REGULAR HUMAN 50 UNIT/0.5 ML ML SQ SCH ×4 (07:30→21:00)
[2022-08-16] MEDS: lisinopriL 5 MG TAB PO SCH (08:47)
[2022-08-16] MEDS: APIXABAN 5 MG TABLET PO SCH ×2 (08:47→20:08)
[2022-08-16] MEDS: SERTRALINE HCL 100 MG TAB PO SCH (08:50)
[2022-08-16] MEDS: GABAPENTIN 300 MG CAP PO SCH ×2 (08:50→20:08)
[2022-08-16] MEDS: AMIODARONE HCL 200 MG TAB PO SCH (08:50)
[2022-08-16] MEDS: METOPROLOL TAR 25 MG TAB PO SCH ×2 (08:50→20:08)
[2022-08-16] MEDS: CEFTRIAXONE 1,000 MG in NA CHLORIDE 0.9% 50 ML IVPB SCH ×2 (08:52→20:07)
[2022-08-16 09:18] LABS: Absolute Lymphocytes (CBC) 0.8 K/uL (0.7-4.9); Hematocrit 25.8 % (39.6-49.0); Lymphocytes % 7.7 % (15.3-44.8); MCV 87.4 fL (80-100); MPV 7.8 fL (7.6-11.3); RBC Red Blood Cell Count 2.95 M/uL (4.33-5.43)
[2022-08-16] MEDS: COLLAGENASE 30 GM OINTMENT TOP SCH (09:41)
[2022-08-16] MEDS: DIVALPROEX ER 250 MG TAB PO SCH ×2 (11:42→20:08)
--- NOTE | 2022-08-16 12:17 | P.CNS ---
Date of Consult: 08/16/22 Reason for Consult: UTI Chief Complaint: Fevers and seizures History of Present Illness: Patient is a 57 yo male with a PMH of atrial fibrillation, seizure disorder, hypertension and diabetes who presented to the ED for complains of seizure and fever. It is reported that he had a seizure the morning of 08/15 and a temperature of 103 F. Patient was admitted for further management. Of note, patient was recently admitted to [facility] earlier this month for seizures, sepsis and left BKA stump wound infection. UA collected in ED and ID was consulted for UTI. Allergies shellfish derived Allergy (Verified 08/15/22 22:16) Itching/Hives/Rash Home medications list reviewed: Yes Home Medications: Amiodarone HCl [Cordarone*] 200 mg PO DAILY 08/15/22 Apixaban [Eliquis] 5 mg PO BID 08/15/22 Atorvastatin Calcium 40 mg PO BEDTIME 08/15/22 Divalproex Sodium [Depakote ER] 250 mg PO Q24H 08/15/22 Gabapentin 300 mg PO BID 08/15/22 Insulin Glargine,Hum.rec.anlog [Semglee] 14 unit SQ DAILY 08/15/22 Insulin NPH Human Isophane [Humulin N] 100 unit SQ ACHS 08/15/22 Metoprolol Tartrate 25 mg PO BID 08/15/22 Sertraline [Zoloft*] 100 mg PO DAILY 08/15/22 lisinopriL [Lisinopril] 5 mg PO DAILY 08/15/22 - Past Medical/Surgical History Diabetic: Yes -: atrial fib -: HTN -: DM -: BKA peter - Social History Smoking Status: Current every day smoker Alcohol use: No CD- Drugs: No Caffeine use: Yes Place of Residence: Home Review of Systems Unremarkable Physical Examination Temp Pulse Resp BP Pulse Ox 98.8 F 75 14 142/64 H 96 08/16/22 08:00 08/16/22 08:50 08/16/22 08:00 08/16/22 08:50 08/16/22 08:00 General: Alert, In no apparent distress, Oriented x3 HEENT: Atraumatic, Normocephalic Neck: Supple, JVD not distended Respiratory: Clear to auscultation bilaterally, Normal air movement Cardiovascular: No edema, Normal pulses Gastrointestinal: Normal bowel sounds, Soft and benign, Non-distended Musculoskeletal: No clubbing, No swelling, Other (Left BKA) Integumentary: Other (Left BKA wound) Neurological: Normal speech, Normal tone, Normal affect Laboratory Data - Reviewed Microbiology Data - Blood cultures: No growth to date - Urine culture: 4+ Gram Negative Rods, mixed yadi Imagings Data: - Reviewed Conclusions/Impression: Problem List - UTI - Atrial Fibrillation - Hypertension - Diabetes Mellitus - Seizure disorder UTI - Urine culture: 4+ Gram-Negative Rods, Mixed Yadi - Denies any dysuria, hematuria, frequency, urgency, retention. No flank, back or pelvic pain. - Currently on Ceftriaxone (08/15) - High risk for MDR Left Below-Knee Amputation Wound - It is reported that the patient was recently admitted to [facility] for seizure and septic shock from stump wound within the last month - Patient reports he has a wound vac that is to be worn on the left stump wounds for 1 month, however it was removed while hospitalized at [facility]. - Wound cultures 08/15: No growth - Blood cultures 08/15: No growth to date - Afebrile - Leukocytosis improved (13 -> 10.7 - on 08/16) - Seizure disorder on Divalproex; valproic acid levels not at therapeutic range. - Atrial fibrillation on amiodarone & eliquis Recommendations - Patient has been improving on Ceftriaxone. No fevers. Leukocytosis improving. Continue antibiotic therapy for total of 7 days. Switch to oral antibiotic as tolerated - Monitor WBC and fever trends ID will follow up and monitor patient closely Case discussed with Bryan Putnam
[2022-08-16 12:19] LABS: Barbiturates NEGATIVE (NEGATIVE); Benzodiazepines NEGATIVE (NEGATIVE); Cocaine NEGATIVE (NEGATIVE); METHAMPHETAM NEGATIVE (NEGATIVE); Methadone NEGATIVE (NEGATIVE); Opiates NEGATIVE (NEGATIVE); Phencyclidine NEGATIVE (NEGATIVE); THC Cannibis POSITIVE (NEGATIVE)
--- NOTE | 2022-08-16 18:16 | CON ---
Reason For Consultation: Because of seizures. History Of Present Illness: Mr. Block is a 57-year-old patient with the history of bilateral below-k nee amputations, atrial fibrillation, hypertension, diabetes mellitus, who began having seizures arou nd the of the month. He said seizures started after he smoked some weed from someone that he tho ught he trusted and since that time he has had multiple episodes. He was reportedly seen at [facility] and treated with Depakote, which appeared to be a very low dosage of 250 mg once daily. He came to [facility] with high fever of 103 and seizure and was apparently having a wound VAC that was rem maci at [facility]. His white blood cell count on the was 13,000 with 87.8% neutrophils. However, al l cultures, which even included from the blood work were negative. He had cultures done on . They were also negative. More cultures done from the are pending. He did have urinalysis nestor t showed with preliminary cultures pending, 4+ gram-negative rods and the urinalysis is consistent wi urinary tract infection with greater than 50 white blood cells, esterase 500, greater than 50 bact eria, positive nitrites, positive blood, and turbid color. It is treated with Rocephin 1 g q.12. The Depakote today is now adjusted after the level was found to be low to 500 twice a day. The Depakote level was 18.6. His urine drug screen today is positive for marijuana. His COVID-19 te sting is negative. Since hospitalization, being on the floor, he has not had another seizure. Past Medical History: Bilateral below-knee amputations, hypertension, diabetes, atrial fibrillation. Medications: Amiodarone, atorvastatin, cephalexin, Eliquis, lisinopril, metoprolol, gabapentin, sert raline. Allergies: FISH AND FISH PRODUCTS. Family History: Noncontributory. Review of Systems: He does report some moderate pain at the stumps and some mild arthralgias in the upper extremities. No current fevers, though he had fevers earlier. No chills. Physical Examination: Vital Signs: Blood pressure 142/64, pulse 75, respiratory rate 14, temperature 98.8, oxygen saturati on 96% on room air. General: Mr. Block is lying in bed, in no significant distress. Although he appears much older than stated age. HEENT: He appears normocephalic, atraumatic. His sclerae are anicteric. Oropharynx is moist. Neck: Supple. Chest: Clear. Abdomen: Soft. Extremities: He has bilateral below-knee amputation stumps with good hemostasis. Neurological: He has no focal deficits in terms of cranial nerves, upper extremity motor examination and on sensory examination, there is a stocking-glove loss to light touch and temperature in the upp er extremities. Assessment: Mr. Block is a 57-year-old patient with a urinary tract infection and he was smoking mar ijuana apparently when he began having seizures. His comorbidities do include hypertension, diabetes mellitus with A1c of 6.5, and he was subtherapeutic on Depakote at 18.6. Plan: 1.Depakote increased from 250 mg daily to 500 mg twice daily. 2.He was told not to smoke marijuana. 3.Continue with hydration and IV Rocephin per primary team. 4.He may be discharged and follow up at [facility] with his Neurology service. ANA/JEREMY Voice ID: [id number] Report ID: [id number]
[2022-08-16] MEDS: ATORVASTATIN 40 MG TAB PO SCH (20:07)
[2022-08-17 03:34] LABS: Absolute Lymphocytes (CBC) 0.9 K/uL (0.7-4.9); Hematocrit 24.4 % (39.6-49.0); Lymphocytes % 10.5 % (15.3-44.8); MCV 86.7 fL (80-100); RBC Red Blood Cell Count 2.81 M/uL (4.33-5.43)
[2022-08-17 04:07] LABS: Phosphorus 3.1 mg/dL (2.5-4.9)
[2022-08-17] MEDS: INSULIN -REGULAR HUMAN 50 UNIT/0.5 ML ML SQ SCH ×4 (07:30→21:00)
--- NOTE | 2022-08-17 07:41 | P.PN ---
Date of Service: 08/17/22 Subjective: Feeling a little bit better today no new / worsening problems no nausea / vomiting / diarrhea Afebrile ROS: 10 point ROS as noted above, otherwise negative Physical Exam: GEN: Alert, oriented, NAD, legally blind HEENT: Normal conjunctiva, sclera anicteric CV: Regular rate and rhythm, no edema Pulm: Nonlabored respirations on room air MSK: b/l BKA Integumentary: chronic wound to left stump Neuro: Normal speech, normal affect vitals reviewed Problem List: Seizures UTI - E coli. 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 ESBL urine culture 08/16: E coli. ESBL , +GNR ID consulted continue antibiotics added Merrem 08/17 Blood culture: no current growth PICC line needed Chronic wound to left stump patient had a wound VAC but it was removed during his last hospitalization wound culture pending General Surgery consulted DM2 insulin dependant sliding scale insulin A-fib Hypertension Continue home medications VTE: Eliquis Code: Full Dispo: Home with home health 2-3 days PICC line needed for home abx States he has a caregiver that comes 3x a week, family can handle the rest
[2022-08-17] MEDS: GABAPENTIN 300 MG CAP PO SCH ×2 (08:31→21:00)
[2022-08-17] MEDS: AMIODARONE HCL 200 MG TAB PO SCH (08:31)
[2022-08-17] MEDS: SERTRALINE HCL 100 MG TAB PO SCH (08:31)
[2022-08-17] MEDS: DIVALPROEX ER 250 MG TAB PO SCH ×2 (08:31→21:33)
[2022-08-17] MEDS: CEFTRIAXONE 1,000 MG in NA CHLORIDE 0.9% 50 ML IVPB SCH ×2 (08:32→21:32)
[2022-08-17] MEDS: APIXABAN 5 MG TABLET PO SCH ×2 (08:32→21:34)
[2022-08-17] MEDS: lisinopriL 5 MG TAB PO SCH (08:32)
[2022-08-17] MEDS: METOPROLOL TAR 25 MG TAB PO SCH ×2 (08:32→21:34)
[2022-08-17] MEDS: COLLAGENASE 30 GM OINTMENT TOP SCH (08:33)
[2022-08-17] MEDS: Meropenem 1,000 MG in NA CHLORIDE 0.9% 100 ML IV SCH ×2 (12:26→16:58)
[2022-08-17] MEDS: ATORVASTATIN 40 MG TAB PO SCH (21:33)
[2022-08-18] MEDS: Meropenem 1,000 MG in NA CHLORIDE 0.9% 100 ML IV SCH ×3 (01:47→16:17)
[2022-08-18 04:11] LABS: Absolute Lymphocytes (CBC) 0.7 K/uL (0.7-4.9); Hematocrit 25.9 % (39.6-49.0); Lymphocytes % 14.6 % (15.3-44.8); MCV 86.5 fL (80-100); MPV 8.5 fL (7.6-11.3); RBC Red Blood Cell Count 2.99 M/uL (4.33-5.43)
--- NOTE | 2022-08-18 07:13 | P.PN ---
Date of Service: 08/18/22 Subjective: Feeling better this morning no complaints about wound appetite improving no new / worsening problems ROS: 10 point ROS as noted above, otherwise negative Physical Exam: GEN: Alert, oriented, NAD, legally blind HEENT: Normal conjunctiva, sclera anicteric CV: Regular rate and rhythm, no edema Pulm: Nonlabored respirations on room air MSK: b/l BKA Integumentary: chronic wound to left stump Neuro: Normal speech, normal affect vitals reviewed Problem List: Seizures UTI - E coli. 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 ESBL urine culture 08/16: E coli. 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
[2022-08-18] MEDS: INSULIN -REGULAR HUMAN 50 UNIT/0.5 ML ML SQ SCH ×4 (07:30→20:50)
[2022-08-18] MEDS: METOPROLOL TAR 25 MG TAB PO SCH ×2 (08:03→20:49)
[2022-08-18] MEDS: AMIODARONE HCL 200 MG TAB PO SCH (08:05)
[2022-08-18] MEDS: GABAPENTIN 300 MG CAP PO SCH ×2 (08:06→20:48)
[2022-08-18] MEDS: DIVALPROEX ER 250 MG TAB PO SCH ×2 (08:06→20:47)
[2022-08-18] MEDS: lisinopriL 5 MG TAB PO SCH (08:06)
[2022-08-18] MEDS: COLLAGENASE 30 GM OINTMENT TOP SCH (08:07)
[2022-08-18] MEDS: SERTRALINE HCL 100 MG TAB PO SCH (08:07)
[2022-08-18] MEDS: APIXABAN 5 MG TABLET PO SCH ×2 (08:07→20:49)
[2022-08-18] MEDS: Mupirocin NASAL 2 APPL/1 GM TUBE NAS SCH ×2 (08:09→20:48)
[2022-08-18] MEDS: ATORVASTATIN 40 MG TAB PO SCH (20:49)
[2022-08-19] MEDS: Meropenem 1,000 MG in NA CHLORIDE 0.9% 100 ML IV SCH ×3 (00:11→16:29)
[2022-08-19 04:32] LABS: Potassium 4.3 mEq/L (3.5-5.1)
[2022-08-19 05:28] LABS: Phosphorus 3.3 mg/dL (2.5-4.9)
--- NOTE | 2022-08-19 07:05 | P.PN ---
Date of Service: 08/19/22 Subjective: Feels pretty good today; continuing to improve no complaints of pain no nausea / vomiting / diarrhea stable, just waiting for PICC line ROS: 10 point ROS as noted above, otherwise negative Physical Exam: GEN: Alert, oriented, NAD, legally blind HEENT: Normal conjunctiva, sclera anicteric CV: Regular rate and rhythm, no edema Pulm: Nonlabored respirations on room air MSK: b/l BKA Integumentary: chronic wound to left stump, no purulent drainage Neuro: Normal speech, normal affect vitals reviewed Problem List: Seizures UTI - E coli. 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 ESBL urine culture 08/16: E coli. 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
[2022-08-19] MEDS: INSULIN -REGULAR HUMAN 50 UNIT/0.5 ML ML SQ SCH ×4 (07:30→20:41)
[2022-08-19] MEDS: METOPROLOL TAR 25 MG TAB PO SCH ×2 (08:23→20:40)
[2022-08-19] MEDS: lisinopriL 5 MG TAB PO SCH (08:25)
[2022-08-19] MEDS: DIVALPROEX ER 250 MG TAB PO SCH ×2 (08:25→20:40)
[2022-08-19] MEDS: APIXABAN 5 MG TABLET PO SCH ×2 (08:25→20:39)
[2022-08-19] MEDS: Mupirocin NASAL 2 APPL/1 GM TUBE NAS SCH ×2 (08:25→20:40)
[2022-08-19] MEDS: GABAPENTIN 300 MG CAP PO SCH ×2 (08:26→20:41)
[2022-08-19] MEDS: SERTRALINE HCL 100 MG TAB PO SCH (08:26)
[2022-08-19] MEDS: AMIODARONE HCL 200 MG TAB PO SCH ×2 (08:26→09:00)
[2022-08-19] MEDS: COLLAGENASE 30 GM OINTMENT TOP SCH (08:27)
--- NOTE | 2022-08-19 09:37 | P.PN ---
Date of Service: 08/19/22 Chief Complaint: Fevers and seizures Subjective: No new changes. Pt resting comfortably in bed, not in acute distress. No complaints at this time. Afebrile. Physical Examination Temp Pulse Resp BP Pulse Ox 97.9 F 60 18 136/63 95 08/19/22 08:00 08/19/22 08:25 08/19/22 08:00 08/19/22 08:25 08/19/22 08:00 General: Alert, In no apparent distress, Oriented x3 HEENT: Atraumatic, Normocephalic Neck: Supple, JVD not distended Respiratory: Clear to auscultation bilaterally, Normal air movement Cardiovascular: No edema, Normal pulses Gastrointestinal: Normal bowel sounds, Soft and benign, Non-distended Musculoskeletal: No clubbing, No swelling, Other (Left BKA) Integumentary: Other (Left BKA wound) Neurological: Normal speech, Normal tone, Normal affect Laboratory Data - Reviewed Microbiology Data - Blood cultures: No growth to date - Urine culture 08/15: Escherichia coli ESBL - Wound culture LLE 08/15: Pseudomonas aeruginosa Imagings Data: - Reviewed Conclusions/Impression: Problem List - UTI - Atrial Fibrillation - Hypertension - Diabetes Mellitus - Seizure disorder UTI - E.coli ESBL - Urine culture 08/15: Escherichia coli ESBL - Denies any dysuria, hematuria, frequency, urgency, retention. No flank, back or pelvic pain. - Previously on Ceftriaxone (08/15-08/17) - Currently on Merrem (08/17-) Left BKA Wound- Pseudomonas aeruginosa - It is reported that the patient was recently admitted to [facility] for seizure and septic shock from stump wound infection within the last month - Wound cultures 08/15: Pseudomonas aeruginosa - On Merrem (08/17-) - Blood cultures 08/15: No growth to date - Afebrile - Leukocytosis improved - Seizure disorder on Divalproex; valproic acid levels not therapeutic - Atrial fibrillation on amiodarone & eliquis Recommendations - Continue Merrem x 14 days (started 08/17) - Continue wound care ID will follow up and monitor patient closely Case discussed with Bryan Putnam
[2022-08-19 09:40] VITALS: O2SAT 95
[2022-08-19] MEDS: ATORVASTATIN 40 MG TAB PO SCH (20:40)
[2022-08-20] MEDS: Meropenem 1,000 MG in NA CHLORIDE 0.9% 100 ML IV SCH ×3 (00:41→16:16)
[2022-08-20 07:28] LABS: Potassium 4.4 mEq/L (3.5-5.1)
[2022-08-20] MEDS: INSULIN -REGULAR HUMAN 50 UNIT/0.5 ML ML SQ SCH ×4 (07:30→21:00)
[2022-08-20] MEDS: Mupirocin NASAL 2 APPL/1 GM TUBE NAS SCH ×2 (09:00→21:38)
--- NOTE | 2022-08-20 09:13 | P.PN ---
Date of Service: 08/20/22 Chief Complaint: Fevers and seizures Subjective: No new changes. Patient is sitting up in bed, alert and oriented x3. No complaints at this time. Afebrile. Physical Examination Temp Pulse Resp BP Pulse Ox 97.5 F 51 16 138/64 95 08/20/22 08:00 08/20/22 08:00 08/20/22 08:00 08/20/22 08:00 08/20/22 08:00 General: Alert, In no apparent distress, Oriented x3 HEENT: Atraumatic, Normocephalic Neck: Supple, JVD not distended Respiratory: Clear to auscultation bilaterally, Normal air movement Cardiovascular: No edema, Normal pulses Gastrointestinal: Normal bowel sounds, Soft and benign, Non-distended Musculoskeletal: No clubbing, No swelling, Other (Left BKA) Integumentary: Other (Left BKA wound) Neurological: Normal speech, Normal tone, Normal affect Laboratory Data - Reviewed Microbiology Data - Blood cultures: No growth to date - Urine culture 08/15: Escherichia coli ESBL - Wound culture LLE 08/15: Pseudomonas aeruginosa & Staph aureus Imagings Data: - Reviewed Assessment and Plan Problem List - UTI - Atrial Fibrillation - Hypertension - Diabetes Mellitus - Seizure disorder UTI - E.coli ESBL - Urine culture 08/15: Escherichia coli ESBL - Denies any dysuria, hematuria, frequency, urgency, retention. No flank, back or pelvic pain. - Previously on Ceftriaxone (08/15-08/17) - Currently on Merrem (08/17-) Left BKA Wound- Pseudomonas aeruginosa - It is reported that the patient was recently admitted to [facility] for septic shock from stump wound infection and seizure ~3-4 weeks ago - Wound cultures 08/15: Pseudomonas aeruginosa & Staph aureus - On Merrem (08/17-) - Blood cultures 08/15: No growth to date - Afebrile - Leukocytosis improved - Seizure disorder on Divalproex. - Atrial fibrillation on amiodarone & eliquis E.coli ESBL urine and Pseudomas of wound both susceptible to Meropenem. Recent hospital admission for septic shock from stump wound infection, recommend antibiotic therapy for 2 weeks. Recommendations - Continue Merrem x 14 days (started 08/17) - PICC line, home with home health - Add Levaquin PO x 7 days - to cover Staph aureus in wound culture - Continue wound care ID will follow up and monitor patient closely Case discussed with Bryan Putnam
[2022-08-20] MEDS: lisinopriL 5 MG TAB PO SCH (10:05)
[2022-08-20] MEDS: APIXABAN 5 MG TABLET PO SCH ×2 (10:05→21:38)
[2022-08-20] MEDS: GABAPENTIN 300 MG CAP PO SCH ×2 (10:05→21:38)
[2022-08-20] MEDS: METOPROLOL TAR 25 MG TAB PO SCH ×2 (10:05→21:00)
[2022-08-20] MEDS: DIVALPROEX ER 250 MG TAB PO SCH ×2 (10:05→21:38)
[2022-08-20] MEDS: SERTRALINE HCL 100 MG TAB PO SCH (10:05)
[2022-08-20] MEDS: AMIODARONE HCL 200 MG TAB PO SCH (10:05)
[2022-08-20] MEDS: COLLAGENASE 30 GM OINTMENT TOP SCH (10:06)
--- NOTE | 2022-08-20 10:35 | RAD REPORT ---
EXAM DESCRIPTION: RAD - Chest Single View - 08/20/2022 10:14 am CLINICAL HISTORY: Device placement PICC line placement . IMPRESSION: PICC line with its tip in the mid superior vena cava
--- NOTE | 2022-08-20 12:31 | CON ---
Date of Consultation: 08/16/2022 Brief History Of Present Illness: The patient is a 57-year-old male with past medical history of atr ial fibrillation, hypertension, diabetes, bilateral BKAs, who presented to the emergency room on 07/21 with fever and seizures. He was evaluated at bedside. He is a poor historian. The information wa s obtained from the staff. Reportedly, he had a seizure while in the bathroom. He did have previous seizure earlier in the month and was treated at [facility]. He does as described have history of BKAs peter aterally. On his left BKA, there was a wound VAC in place, but the wound continued to worsen and as such I am consulted for management of his left open BKA chronic wound. Past Medical History: As described above, atrial fibrillation, hypertension, diabetes, seizure disor venkata, severe peripheral vascular disease. Past Surgical History: Bilateral BKAs. Review of Systems: A 10-point review of systems other than HPI, denies. Physical Examination: General: At the time of my examination; he was awake, alert, and oriented. Psychiatric: He was appropriate, conversive. HEENT: He is normocephalic. Sclerae anicteric. Mucous membranes moist. Oropharynx clear. Neck: Supple without JVD. Chest: Normal expansion and excursion. Cardiovascular: Regular rate and rhythm. Pulmonary: Clear to auscultation bilaterally. Abdomen: Soft. Extremities: Focused examination of bilateral lower extremities; he has bilateral BKAs. His left BK A incision site at the lateral aspect has a small approximately 2.5 to 3 cm opening by 2.5 cm down to the subcutaneous fat with granulation tissue. There is slough and superficial drainage of clear mat erial from this and fibrin buildup. No cellulitis. No fluid collections. No drainable collections. No necrosis at this point. The remainder of examination was unremarkable except his skin examinati on. Vital Signs: His blood pressure at time of my examination 142/64, pulse 75, respiratory rate 14, tem perature 98.8, SpO2 96% on room air. Laboratory Data: Revealed a white blood cell count of , platelet count was 318. Coags 14. PT was 14.6, INR 1.33, PTT is 27.9. Chemistry showed a sodium of 138, potassium 4.3, chloride 111, carbon dioxide 23, BUN 29, creatinine 0.9, glucose is 115. His calcium was 8.6. Lactic acid 1.4 on admission. He did not have any significant imaging of concern. Assessment And Plan: This is a 57-year-old male, who comes in with signs and symptoms for chronic wo und of the left lower extremity below-knee amputation stump. 1.IV fluid hydration. 2.Antibiotic coverage. 3.Initiate wound care with Santyl and Vashe, damp to dry dressings with wraps and elevation every da y. Going forward, we will transition to collagen after he has improvement and decreased s lynnette. I have explained the risks, benefits, and alternatives of the above stated plan. The patient agrees to proceed as indicated. Thank you for this interesting consult. ROJAS/JEREMY Voice ID: [id number] Report ID: [id number]
--- NOTE | 2022-08-20 14:42 | P.PN ---
Subjective Date of Service: 08/20/22 Chief Complaint: Fevers and seizures Physical Examination - Vital Signs Temperature: 97.4 F Blood Pressure: 142/67 Pulse: 52 Respirations: 16 Pulse Ox (%): 98 - Studies Microbiology Data (last 24 hrs): 08/15/22 09:14 Blood - Blood Aerobic Blood Culture - Final No growth in 5 days. 08/15/22 09:14 Blood - Blood Anaerobic Blood Culture - Final No growth in 5 days. 08/15/22 09:00 Blood - Blood Aerobic Blood Culture - Final No growth in 5 days. 08/15/22 09:00 Blood - Blood Anaerobic Blood Culture - Final No growth in 5 days. Assessment And Plan - Plan Physical Exam: GEN: Alert, oriented, NAD, legally blind HEENT: Normal conjunctiva, sclera anicteric CV: Regular rate and rhythm, no edema Pulm: Nonlabored respirations on room air MSK: b/l BKA Integumentary: chronic wound to left stump, no purulent drainage Neuro: Normal speech, normal affect vitals reviewed Problem List: Seizures UTI - E coli. 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 Seizure protocol and aspiration precautions UTI - E coli. ESBL urine culture 08/16: E coli. ESBL , +GNR Seen by 2 weeks of IV meropenem recommended. PICC line placed for outpatient IV antibiotic. 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 Brown who recommended to continue wound care. DM2 insulin dependant Managing with sliding scale insulin A-fib Hypertension Continue home medications VTE: Eliquis Code: Full Dispo: Home with home health 1-2 days
[2022-08-20] MEDS ORDERED: NA CHLORIDE 0.9% 100 ML ONE (16:10)
[2022-08-20] MEDS: ATORVASTATIN 40 MG TAB PO SCH (21:38)
[2022-08-21] MEDS: Meropenem 1,000 MG in NA CHLORIDE 0.9% 100 ML IV SCH ×2 (01:00→08:22)
[2022-08-21 04:52] LABS: Absolute Lymphocytes (CBC) 1.5 K/uL (0.7-4.9); Hematocrit 31.2 % (39.6-49.0); MCV 85.4 fL (80-100); MPV 7.9 fL (7.6-11.3); RBC Red Blood Cell Count 3.65 M/uL (4.33-5.43)
[2022-08-21 05:13] LABS: Potassium 4.4 mEq/L (3.5-5.1)
[2022-08-21] MEDS: INSULIN -REGULAR HUMAN 50 UNIT/0.5 ML ML SQ SCH ×2 (07:30→11:30)
[2022-08-21] MEDS: AMIODARONE HCL 200 MG TAB PO SCH (08:22)
[2022-08-21] MEDS: GABAPENTIN 300 MG CAP PO SCH (08:22)
[2022-08-21] MEDS: METOPROLOL TAR 25 MG TAB PO SCH ×2 (08:22→08:24)
[2022-08-21] MEDS: lisinopriL 5 MG TAB PO SCH (08:22)
[2022-08-21] MEDS: DIVALPROEX ER 250 MG TAB PO SCH (08:22)
[2022-08-21] MEDS: SERTRALINE HCL 100 MG TAB PO SCH (08:22)
[2022-08-21] MEDS: Mupirocin NASAL 2 APPL/1 GM TUBE NAS SCH (08:22)
[2022-08-21] MEDS: APIXABAN 5 MG TABLET PO SCH (08:22)
[2022-08-21] MEDS: COLLAGENASE 30 GM OINTMENT TOP SCH (08:23)
[2022-08-21] MEDS ORDERED: MUPIROCIN 2% OINT 22GM TUBE TOP SCH (09:00)
--- NOTE | 2022-08-21 09:30 | P.DS ---
Admission Date: 08/15/22 Discharge Date: 08/21/22 Reason for Admission: Fevers and seizures Brief History of Present Illness: This is a 57-year-old male with past history significant atrial fib, hypertension, diabetes and seizures. Patient comes to the emergency room with complaints of fevers and seizures. It was reported that patient had a seizure today while attempting to use the bathroom. Patient did have a previous seizure back on the of this month, where he was treated at [facility]. It was reported patient presented with a fever of 103. Patient also presented with a wound to his left stump. It was reported that patient had a wound VAC but the wound VAC was removed during his stay at [facility] a few days ago. No further seizures reported during the ED stay. Patient with mild leukocytosis. He was admitted for further management. Hospital Course: Diagnosis Seizures UTI - E coli. 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 Seizure protocol and aspiration precautions UTI - E coli. ESBL urine culture 08/16: E coli. ESBL , +GNR Seen by infectious disease 2 weeks of IV meropenem recommended. Blood culture: no current growth PICC line placed for outpatient IV antibiotic. Home antibiotics has been arranged. 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 Pseudomonas is sensitive to Merrem, MSSA sensitive to Bactrim. Seen by General Surgery Dr. Brown who recommended to continue wound care. Patient prescribed oral Bactrim bid x7 days DM2 insulin dependant Managed with sliding scale insulin. Patient stated he eats more at home. His home insulin regimen is resumed on discharge A-fib Hypertension Continued home medications Vital Signs/Physical Exam: Temp Pulse Resp BP Pulse Ox 96.9 F 51 14 133/68 94 08/21/22 08:00 08/21/22 08:24 08/21/22 08:00 08/21/22 08:24 08/21/22 08:00 General: Alert, In no apparent distress HEENT: Mucous membr. moist/pink Neck: JVD not distended Respiratory: Clear to auscultation bilaterally, Normal air movement Cardiovascular: Regular rate/rhythm, Normal S1 S2 Gastrointestinal: Normal bowel sounds, Soft and benign, Non-distended, No tenderness Integumentary: Other (Amputation stump wounds) Neurological: Other (No focal motor deficit) Laboratory Data at Discharge: WBC 5.40 thou/uL (4.3-10.9) 08/21/22 04:30 Hgb 10.2 g/dL (13.6-17.9) L 08/21/22 04:30 Hct 31.2 % (39.6-49.0) L 08/21/22 04:30 Plt Count 434 thou/uL (152-406) H 08/21/22 04:30 PT 14.6 SECONDS (9.5-12.5) H 08/15/22 09:14 INR 1.33 08/15/22 09:14 APTT 27.9 SECONDS (24.3-36.9) 08/15/22 09:14 Sodium 133 mEq/L (136-145) L 08/21/22 04:30 Potassium 4.4 mEq/L (3.5-5.1) 08/21/22 04:30 BUN 33 mg/dL (7-18) H 08/21/22 04:30 Creatinine 0.99 mg/dL (0.70-1.30) 08/21/22 04:30 Glucose 145 mg/dL (74-106) H 08/21/22 04:30 Phosphorus 3.3 mg/dL (2.5-4.9) 08/19/22 03:58 Magnesium 2.0 mg/dL (1.6-2.4) 08/19/22 03:58 Total Bilirubin 0.2 mg/dL (0.2-1.0) 08/15/22 09:14 AST 9 U/L (15-37) L 08/15/22 09:14 ALT 19 U/L (16-61) 08/15/22 09:14 Alkaline Phosphatase 82 U/L (45-117) 08/15/22 09:14 Home Medications: Amiodarone HCl [Cordarone*] 200 mg PO DAILY 08/15/22 Apixaban [Eliquis] 5 mg PO BID 08/15/22 Atorvastatin Calcium 40 mg PO BEDTIME 08/15/22 Gabapentin 300 mg PO BID 08/15/22 Insulin Glargine,Hum.rec.anlog [Semglee] 14 unit SQ DAILY 08/15/22 Insulin NPH Human Isophane [Humulin N] 100 unit SQ ACHS 08/15/22 Metoprolol Tartrate 25 mg PO BID 08/15/22 Sertraline [Zoloft*] 100 mg PO DAILY 08/15/22 lisinopriL [Lisinopril] 5 mg PO DAILY 08/15/22 Collagenase [Santyl Ointment*] 1 appl TOP DAILY #1 tube 08/21/22 Divalproex Sodium [Depakote ER] 500 mg PO BID #60 tab 08/21/22 Mupirocin Calcium [Bactroban Nasal*] 1 appl ANDER BID #1 tube 08/21/22 Mupirocin Oint [Bactroban 2% Ointment*] 1 appl TOP DAILY #1 tube 08/21/22 Smz./Tmp. [Bactrim Ds 800 MG/160 MG] 1 tab PO BID #14 tab 08/21/22 New Medications: Smz./Tmp. [Bactrim Ds 800 MG/160 MG] 1 tab PO BID #14 tab Mupirocin Oint [Bactroban 2% Ointment*] 1 appl TOP DAILY #1 tube Mupirocin Calcium [Bactroban Nasal*] 1 appl ANDER BID #1 tube Divalproex Sodium [Depakote ER] 500 mg PO BID #60 tab Collagenase [Santyl Ointment*] 1 appl TOP DAILY #1 tube Diet: ADA Activity: Ad marisela Followup: Unknown,U [Primary Care Provider] - Time spent managing pt's care (in minutes): 40
--- NOTE | 2022-08-21 09:38 | P.PN ---
Date of Service: 08/21/22 Chief Complaint: Fevers and seizures Subjective: No new changes. No acute events reported overnight. Alert and oriented x3. No complaints at this time. Afebrile. Physical Examination Temp Pulse Resp BP Pulse Ox 96.9 F 51 14 133/68 94 08/21/22 08:00 08/21/22 08:24 08/21/22 08:00 08/21/22 08:24 08/21/22 08:00 General: Alert, In no apparent distress, Oriented x3 HEENT: Atraumatic, Normocephalic Neck: Supple, JVD not distended Respiratory: Clear to auscultation bilaterally, Normal air movement Cardiovascular: No edema, Normal pulses Gastrointestinal: Normal bowel sounds, Soft and benign, Non-distended Musculoskeletal: No clubbing, No swelling, Other (Left BKA) Integumentary: Other (Left BKA wound) Neurological: Normal speech, Normal tone, Normal affect Laboratory Data - Reviewed Microbiology Data - Blood cultures: No growth to date - Urine culture 08/15: Escherichia coli ESBL - Wound culture LLE 08/15: Pseudomonas aeruginosa & Staph aureus Imagings Data: - Reviewed Assessment and Plan Problem List - UTI - Atrial Fibrillation - Hypertension - Diabetes Mellitus - Seizure disorder UTI - E.coli ESBL - Urine culture 08/15: Escherichia coli ESBL - Denies any dysuria, hematuria, frequency, urgency, retention. No flank, back or pelvic pain. - Previously on Ceftriaxone (08/15-08/17) - Currently on Merrem (08/17-) Left BKA Wound- Pseudomonas aeruginosa - It is reported that the patient was recently admitted to [facility] for septic shock from stump wound infection ~3-4 weeks ago - Wound cultures 08/15: Pseudomonas aeruginosa & Staph aureus - On Merrem (08/17-) - Blood cultures 08/15: No growth to date - Afebrile - Leukocytosis improved - Seizure disorder on Divalproex. - Atrial fibrillation on amiodarone & eliquis E.coli ESBL urine and Pseudomonas of wound both susceptible to Meropenem. Recent hospital admission for septic shock from stump wound infection, recommend antibiotic therapy for 2 weeks. Recommendations - E.coli ESBL & Pseudomonas: Continue Merrem x 14 days (started 08/17) - PICC line, home with home health - Staph aureus: Add Levaquin PO x 7 days - Continue wound care ID will follow up and monitor patient closely Case discussed with Bryan Putnam
[2022-08-21 16:35] VITALS: BP 95/58; TEMP 97
== END 2022-08-21 17:27 | disposition home health service (06) | DRG 872 ==
LOC: ER 06:40 → ERHOLD 14:25 → 2ND 20:00
PROVIDERS: ADMIT Hospitalist; ATTEND Internal Medicine
PROC: 02HV33Z Insertion of Infusion Device into Superior Vena Cava, Percutaneous Approach (ICD-10-PCS; principal; 2022-08-20)
DX: A41.51 Sepsis due to Escherichia coli [E. coli] (principal); N39.0 Urinary tract infection, site not specified; Z16.12 Extended spectrum beta lactamase (ESBL) resistance; G40.909 Epilepsy, unspecified, not intractable, without status epilepticus; I10 Essential (primary) hypertension; E11.9 Type 2 diabetes mellitus without complications; D64.9 Anemia, unspecified; H54.8 Legal blindness, as defined in USA; I48.91 Unspecified atrial fibrillation; F17.200 Nicotine dependence, unspecified, uncomplicated; B96.5 Pseudomonas (aeruginosa) (mallei) (pseudomallei) as the cause of diseases classified elsewhere; B95.61 Methicillin susceptible Staphylococcus aureus infection as the cause of diseases classified elsewhere; Z79.4 Long term (current) use of insulin; Z79.01 Long term (current) use of anticoagulants; Z91.013 Allergy to seafood; Z89.512 Acquired absence of left leg below knee; Z89.511 Acquired absence of right leg below knee; Z79.899 Other long term (current) drug therapy; Z20.822 Contact with and (suspected) exposure to COVID-19
CPT/HCPCS: 36415; 36569; 71045; 80048; 80053; 80164; 80307; 81001; 82947; 83036; 83605; 83735; 84100; 85025; 85610; 85730; 87040; 87070; 87077; 87086; 87088; 87186; 87205; 93005; 96361; 96365; 97161; 97530; 97542; 99285; J0696; J1650; J2185; J3590; J7040

== ENCOUNTER 2022-09-05 19:42 | Emergency (ER) | payer OTHER ==
--- OUTSIDE RECORDS SUMMARY | 2022-09-05 20:01 | XMS REPORT | Continuity of Care Document ---
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 Univ ers ULIN 4-17 under the ity of GLARGINE-YF 13:33: skin. As AURELIO Quintanilla 22 directed Medical Branch insulin NPH 2022-0 Yes inject Univ ers human 4-17 under the ity of isophane 13:33: skin. Abdi (HUMULIN N 22 Unsure of Medi dilshad PEN MD) what kind Branch of humulin insulin he takes SEMGLEE,INS 2023-0 Yes inject Univ ers ULIN 4-17 under the ity of GLARGINE-YF 13:33: skin. As AURELIO Quintanilla 22 directed Medical Branch insulin NPH 3-0 Yes inject Univ ers human 4-17 under the ity of isophane 13:33: skin. Abdi (HUMULIN N 22 Unsure of [facility] dilshad PEN MD) what kind Branch of humulin insulin he takes SEMGLEE,INS 2023-0 Yes inject Univ ers ULIN 4-17 under the ity of GLARGINE-YF 13:33: skin. As AURELIO Quintanilla 22 directed Medical Branch insulin NPH 3-0 Yes inject Univ ers human 4-17 under the ity of isophane 13:33: skin. Abdi (HUMULIN N 22 Unsure of [facility] dilshad PEN MD) what kind Branch of humulin insulin he takes SEMGLEE,INS 2023-0 Yes inject Univ ers ULIN 4-17 under the ity of GLARGINE-YF 13:33: skin. As AURELIO Quintanilla 22 directed Medical Branch insulin NPH 2022-0 Yes inject [facility] ers human 4-17 under the ity of isophane 13:33: skin. Abdi (HUMULIN N 22 Unsure of [facility] dilshad PEN MD) what kind Branch of humulin insulin he takes SEMGLEE,INS 2023-0 Yes inject [facility] ers ULIN 4-17 under the ity of GLARGINE-YF 13:33: skin. As AURELIO Quintanilla 22 directed Medical Branch insulin NPH 2022-0 Yes inject [facility] ers human 4-17 under the ity of isophane 13:33: skin. Abdi (HUMULIN N 22 Unsure of [facility] dilshad PEN MD) what kind Branch of humulin insulin he takes SEMGLEE,INS 2023-0 Yes inject Univ ers ULIN 4-17 under the ity of GLARGINE-YF 13:33: skin. As AURELIO Quintanilla 22 directed Medical Branch insulin NPH 3-0 Yes inject [facility] ers human 4-17 under the ity of isophane 13:33: skin. Abdi (HUMULIN N 22 Unsure of Medi dilshad PEN MD) what kind Branch of humulin insulin he takes SEMGLEE,INS 2023-0 Yes inject Univ ers ULIN 4-17 under the ity of GLARGINE-YF 13:33: skin. As AURELIO Quintanilla 22 directed Medical Branch insulin NPH 2023-0 Yes inject [facility] ers human 4-17 under the ity of isophane 13:33: skin. Abdi (HUMULIN N 22 Unsure of [facility] dilshad PEN MD) what kind Branch of humulin insulin he takes SEMGLEE,INS 2023-0 Yes inject Univ ers ULIN 4-17 under the ity of GLARGINE-YF 13:33: skin. As AURELIO Quintanilla 22 directed Medical Branch insulin NPH 2022-0 Yes inject [facility] ers human 4-17 under the ity of isophane 13:33: skin. Abdi (HUMULIN N 22 Unsure of [facility]) what kind Branch of humulin insulin he takes SEMGLEE,INS 2023-0 Yes inject Univ ers ULIN 4-17 under the ity of GLARGINE-YF 13:33: skin. As AURELIO Quintanilla 22 directed Medical Branch insulin NPH 2022-0 Yes inject Univ ers human 4-17 under the ity of isophane 13:33: skin. Abdi (HUMULIN N 22 Unsure of [facility]) what kind Branch of humulin insulin he takes SEMGLEE,INS 2023-0 Yes inject Univ ers ULIN 4-17 under the ity of GLARGINE-YF 13:33: skin. As AURELIO Quintanilla 22 directed Medical Branch insulin NPH 2022-0 Yes inject [facility] ers human 4-17 under the ity of isophane 13:33: skin. Abdi (HUMULIN N 22 Unsure of [facility]) what kind Branch of humulin insulin he takes SEMGLEE,INS 2023-0 Yes inject Univ ers ULIN 4-17 under the ity of GLARGINE-YF 13:33: skin. As AURELIO Quintanilla 22 directed Medical Branch insulin NPH 2022-0 Yes inject [facility] ers human 4-17 under the ity of isophane 13:33: skin. Abdi (HUMULIN N 22 Unsure of [facility]) what kind Branch of humulin insulin he takes SEMGLEE,INS 2023-0 Yes inject Univ ers ULIN 4-17 under the ity of GLARGINE-YF 13:33: skin. As AURELIO Quintanilla 22 directed Medical Branch insulin NPH 3-0 Yes inject [facility] ers human 4-17 under the ity of isophane 13:33: skin. Abdi (HUMULIN N 22 Unsure of [facility]) what kind Branch of humulin insulin he takes SEMGLEE,INS 2023-0 Yes inject Univ ers ULIN 4-17 under the ity of GLARGINE-YF 13:33: skin. [place] 22 directed Medical Branch insulin NPH 2023-0 Yes inject [facility] ers human 4-17 under the ity of isophane 13:33: skin. [place] (HUMULIN N 22 Unsure of Medi dilshad PEN [place]) what kind Branch of humulin insulin he takes cephALEXin 2023-0 Yes 500mg Take 1 Univ ers 500 mg 4-17 capsule by ity of capsule 13:23: mouth 4 [place] [address] (four) Medical times Branch daily. cephALEXin 2023-0 Yes 500mg Take 1 Univ ers 500 mg 4-17 capsule by ity of capsule 13:23: mouth 4 [place] [address] (four) Medical times Branch daily. cephALEXin 2023-0 Yes 500mg Take 1 Univ ers 500 mg 4-17 capsule by ity of capsule 13:23: mouth 4 [place] [address] (four) Medical times Branch daily. cephALEXin 2023-0 Yes 500mg Take 1 Univ ers 500 mg 4-17 capsule by ity of capsule 13:23: mouth 4 [place] [address] (four) Medical times Branch daily. cephALEXin 2023-0 Yes 500mg Take 1 Univ ers 500 mg 4-17 capsule by ity of capsule 13:23: mouth 4 [place] [address] (four) Medical times Branch daily. cephALEXin 2023-0 Yes 500mg Take 1 Univ ers 500 mg 4-17 capsule by ity of capsule 13:23: mouth 4 [place] [address] (four) Medical times Branch daily. cephALEXin 2023-0 Yes 500mg Take 1 Univ ers 500 mg 4-17 capsule by ity of capsule 13:23: mouth 4 [place] [address] (four) Medical times Branch daily. cephALEXin 2023-0 Yes 500mg Take 1 Univ ers 500 mg 4-17 capsule by ity of capsule 13:23: mouth 4 [place] [address] (four) Medical times Branch daily. cephALEXin 2023-0 Yes 500mg Take 1 Univ ers 500 mg 4-17 capsule by ity of capsule 13:23: mouth 4 [place] [address] (four) Medical times Branch daily. cephALEXin 2023-0 Yes 500mg Take 1 Univ ers 500 mg 4-17 capsule by ity of capsule 13:23: mouth 4 [place] [address] (four) Medical times Branch daily. cephALEXin 2023-0 Yes 500mg Take 1 Univ ers 500 mg 4-17 capsule by ity of capsule 13:23: mouth 4 [place] [address] (four) Medical times Branch daily. cephALEXin 2023-0 Yes 500mg Take 1 Univ ers 500 mg 4-17 capsule by ity of capsule 13:23: mouth 4 [place] [address] (four) Medical times Branch daily. cephALEXin 2023-0 Yes 500mg Take 1 Univ ers 500 mg 4-17 capsule by ity of capsule 13:23: mouth 4 [place] [address] (four) Medical times Branch daily. cephALEXin 2023-0 Yes 500mg Take 1 Univ ers 500 mg 4-17 capsule by ity of capsule 13:23: mouth 4 [place] [address] (four) Medical times Branch daily. cephALEXin 2023-0 Yes 500mg Take 1 Univ ers 500 mg 4-17 capsule by ity of capsule 13:23: mouth 4 [place] [address] (four) Medical times Branch daily. cephALEXin 2023-0 Yes 500mg Take 1 Univ ers 500 mg 4-17 capsule by ity of capsule 13:23: mouth 4 [place] [address] (four) Medical times Branch daily. cephALEXin 2023-0 Yes 500mg Take 1 Univ ers 500 mg 4-17 capsule by ity of capsule 13:23: mouth 4 [place] [address] (four) Medical times Branch daily. cephALEXin 2023-0 Yes 500mg Take 1 Univ ers 500 mg 4-17 capsule by ity of capsule 13:23: mouth 4 [place] [address] (four) Medical times Branch daily. cephALEXin 2023-0 Yes 500mg Take 1 Univ ers 500 mg 4-17 capsule by ity of capsule 13:23: mouth 4 [place] [address] (four) Medical times Branch daily. cephALEXin 2023-0 Yes 500mg Take 1 Univ ers 500 mg 4-17 capsule by ity of capsule 13:23: mouth 4 [place] [address] (four) Medical times Branch daily. cephALEXin 2023-0 Yes 500mg Take 1 Univ ers 500 mg 4-17 capsule by ity of capsule 13:23: mouth 4 [place] [address] (four) Medical times Branch daily. gabapentin 2023-0 Yes [id number] 300mg Take 1 Univers 300 mg 4-17 capsule by ity of capsule 00:00: mouth in [place] [address] the Medical morning Branch and 1 capsule at noon and 1 capsule in the evening. amiodarone 2023-0 Yes [id number] 200mg Take 1 Univers 200 mg 4-17 tablet by ity of tablet 00:00: mouth in [place] the morning. Branch apixaban 5 Yes 5mg Take 1 Unive rs mg tablet 4-17 tablet by ity o f 00:00: mouth in [place] the morning Branch and 1 tablet in the evening. Indication s: ATRIAL FIBRILLATI ON atorvastati Yes [id number] 40mg Take 1 Univers n 40 mg 4-17 tablet by ity of tablet 00:00: mouth at [place] [address] bedtime. Medical Branch SERTraline Yes [id number] 100mg Take 1 Univers 100 mg 4-17 tablet by ity of tablet 00:00: mouth in [place] 00 the morning. Branch lisinopriL Yes [id number] 2.5mg Take 1 Univers 2.5 mg 4-17 tablet by ity of tablet 00:00: mouth in [place] 00 the morning. Branch metoprolol Yes [id number] 25mg Take 1 U nivers tartrate 25 4-17 tablet by ity of mg tablet 00:00: mouth in [facility] 00 the morning Branch and 1 tablet in the evening. blood sugar Yes [id number] Check U nivers diagnostic 4-17 blood ity of strip 00:00: sugar 2 [place] 00 times a Medical day. Branch E11.9. Brand per insurance. Uses ACCU-CHEK machine Lancets Yes [id number] Check Unive rs Misc 4-17 blood ity of 00:00: sugar 2 [place] 00 times a Medical day. Branch E11.9. Brand per insurance. gabapentin Yes [id number] 300mg Take 1 Univers 300 mg 4-17 capsule by ity of capsule 00:00: mouth in [place] the morning Branch and 1 capsule at noon and 1 capsule in the evening. amiodarone Yes [id number] 200mg Take 1 Univers 200 mg 4-17 tablet by ity of tablet 00:00: mouth in [place] 00 the morning. Branch apixaban 5 Yes 5mg Take 1 Unive rs mg tablet 4-17 tablet by ity o f 00:00: mouth in [place] the morning Branch and 1 tablet in the evening. Indication s: ATRIAL FIBRILLATI ON atorvastati Yes [id number] 40mg Take 1 Univers n 40 mg 4-17 tablet by ity of tablet 00:00: mouth at [place] [address] bedtime. Medical Branch SERTraline Yes [id number] 100mg Take 1 Univers 100 mg 4-17 tablet by ity of tablet 00:00: mouth in [place] the morning. Branch lisinopriL Yes [id number] 2.5mg Take 1 Univers 2.5 mg 4-17 tablet by ity of tablet 00:00: mouth in [place] the morning. Branch metoprolol Yes [id number] 25mg Take 1 U nivers tartrate 25 4-17 tablet by ity of mg tablet 00:00: mouth in [facility] the morning Branch and 1 tablet in the evening. blood sugar Yes [id number] Check U nivers diagnostic 4-17 blood ity of strip 00:00: sugar 2 [place] 00 times a Medical day. Branch E11.9. Brand per insurance. Uses ACCU-CHEK machine Lancets Yes [id number] Check Unive rs Misc 4-17 blood ity of 00:00: sugar 2 [place] 00 times a Medical day. Branch E11.9. Brand per insurance. gabapentin Yes [id number] 300mg Take 1 Univers 300 mg 4-17 capsule by ity of capsule 00:00: mouth in [place] the morning Branch and 1 capsule at noon and 1 capsule in the evening. amiodarone Yes [id number] 200mg Take 1 Univers 200 mg 4-17 tablet by ity of tablet 00:00: mouth in [place] the morning. Branch apixaban 5 Yes 5mg Take 1 Unive rs mg tablet 4-17 tablet by ity o f 00:00: mouth in [place] the morning Branch and 1 tablet in the evening. Indication s: ATRIAL FIBRILLATI ON atorvastati Yes [id number] 40mg Take 1 Univers n 40 mg 4-17 tablet by ity of tablet 00:00: mouth at [place] [address] bedtime. Medical Branch SERTraline Yes [id number] 100mg Take 1 Univers 100 mg 4-17 tablet by ity of tablet 00:00: mouth in [place] 00 the morning. Branch lisinopriL Yes [id number] 2.5mg Take 1 Univers 2.5 mg 4-17 tablet by ity of tablet 00:00: mouth in [place] the morning. Branch metoprolol Yes [id number] 25mg Take 1 U nivers tartrate 25 4-17 tablet by ity of mg tablet 00:00: mouth in [facility] the morning Branch and 1 tablet in the evening. blood sugar 0 Yes [id number] Check U nivers diagnostic 4-17 blood ity of strip 00:00: sugar 2 [place] times a Medical day. Branch E11.9. Brand per insurance. Uses ACCU-CHEK machine Lancets Yes [id number] Check Unive rs Misc 4-17 blood ity of 00:00: sugar 2 [place] times a Medical day. Branch E11.9. Brand per insurance. gabapentin Yes [id number] 300mg Take 1 Univers 300 mg 4-17 capsule by ity of capsule 00:00: mouth in [place] the morning Branch and 1 capsule at noon and 1 capsule in the evening. amiodarone Yes [id number] 200mg Take 1 Univers 200 mg 4-17 tablet by ity of tablet 00:00: mouth in [place] the morning. Branch apixaban 5 0 Yes 5mg Take 1 Unive rs mg tablet 4-17 tablet by ity o f 00:00: mouth in [place] the morning Branch and 1 tablet in the evening. Indication s: ATRIAL FIBRILLATI ON atorvastati 2022-0 Yes [id number] 40mg Take 1 Univers n 40 mg 4-17 tablet by ity of tablet 00:00: mouth at [place] [address] bedtime. Medical Branch SERTraline 0 Yes [id number] 100mg Take 1 Univers 100 mg 4-17 tablet by ity of tablet 00:00: mouth in [place] the morning. Branch lisinopriL 2022-0 Yes [id number] 2.5mg Take 1 Univers 2.5 mg 4-17 tablet by ity of tablet 00:00: mouth in [place] [address] the morning. Branch metoprolol 2022-0 Yes [id number] 25mg Take 1 U nivers tartrate 25 4-17 tablet by ity of mg tablet 00:00: [place] the Medical morning Branch and 1 tablet in the evening. blood sugar Yes [id number] Check U nivers diagnostic 4-17 blood ity of strip 00:00: sugar 2 [place] 00 times a Medical day. Branch E11.9. Brand per insurance. Uses ACCU-CHEK machine Lancets Yes [id number] Check Unive rs Misc 4-17 blood ity of 00:00: sugar 2 [place] 00 times a Medical day. Branch E11.9. Brand per insurance. gabapentin Yes [id number] 300mg Take 1 Univers 300 mg 4-17 capsule by ity of capsule 00:00: mouth in [place] 00 the morning Branch and 1 capsule at noon and 1 capsule in the evening. amiodarone Yes [id number] 200mg Take 1 Univers 200 mg 4-17 tablet by ity of tablet 00:00: mouth in [place] 00 the morning. Branch apixaban 5 Yes 5mg Take 1 Unive rs mg tablet 4-17 tablet by ity o f 00:00: mouth in [place] 00 the morning Branch and 1 tablet in the evening. Indication s: ATRIAL FIBRILLATI ON atorvastati Yes [id number] 40mg Take 1 Univers n 40 mg 4-17 tablet by ity of tablet 00:00: mouth at [place] 00 bedtime. Medical Branch SERTraline Yes [id number] 100mg Take 1 Univers 100 mg 4-17 tablet by ity of tablet 00:00: mouth in [place] 00 the morning. Branch lisinopriL Yes [id number] 2.5mg Take 1 Univers 2.5 mg 4-17 tablet by ity of tablet 00:00: mouth in [place] 00 the Medical morning. Branch metoprolol Yes [id number] 25mg Take 1 U nivers tartrate 25 4-17 tablet by ity of mg tablet 00:00: mouth in [facility] 00 the morning Branch and 1 tablet in the evening. blood sugar 0 Yes [id number] Check U nivers diagnostic 4-17 blood ity of strip 00:00: sugar 2 [place] 00 times a Medical day. Branch E11.9. Brand per insurance. Uses ACCU-CHEK machine Lancets Yes [id number] Check Unive rs Misc 4-17 blood ity of 00:00: sugar 2 [place] 00 times a Medical day. Branch E11.9. Brand per insurance. gabapentin Yes [id number] 300mg Take 1 Univers 300 mg 4-17 capsule by ity of capsule 00:00: mouth in [place] 00 the Medical morning Branch and 1 capsule at noon and 1 capsule in the evening. amiodarone Yes [id number] 200mg Take 1 Univers 200 mg 4-17 tablet by ity of tablet 00:00: mouth in [place] 00 the morning. Branch apixaban 5 Yes 5mg Take 1 Unive rs mg tablet 4-17 tablet by ity o f 00:00: mouth in [place] 00 the Medical morning Branch and 1 tablet in the evening. Indication s: ATRIAL FIBRILLATI ON atorvastati Yes [id number] 40mg Take 1 Univers n 40 mg 4-17 tablet by ity of tablet 00:00: mouth at [place] [address] bedtime. Medical Branch SERTraline Yes [id number] 100mg Take 1 Univers 100 mg 4-17 tablet by ity of tablet 00:00: mouth in [place] the Medical morning. Branch lisinopriL Yes [id number] 2.5mg Take 1 Univers 2.5 mg 4-17 tablet by ity of tablet 00:00: mouth in [place] 00 the Medical morning. Branch metoprolol Yes [id number] 25mg Take 1 U nivers tartrate 25 4-17 tablet by ity of mg tablet 00:00: mouth in [facility] 00 the Medical morning Branch and 1 tablet in the evening. blood sugar Yes [id number] Check U nivers diagnostic 4-17 blood ity of strip 00:00: sugar 2 [place] 00 times a Medical day. Branch E11.9. Brand per insurance. Uses ACCU-CHEK machine Lancets Yes [id number] Check Unive rs Misc 4-17 blood ity of 00:00: sugar 2 [place] 00 times a Medical day. Branch E11.9. Brand per insurance. gabapentin Yes [id number] 300mg Take 1 Univers 300 mg 4-17 capsule by ity of capsule 00:00: mouth in [place] 00 the Medical morning Branch and 1 capsule at noon and 1 capsule in the evening. amiodarone Yes [id number] 200mg Take 1 Univers 200 mg 4-17 tablet by ity of tablet 00:00: mouth in [place] the morning. Branch apixaban 5 0 Yes 5mg Take 1 Unive rs mg tablet 4-17 tablet by ity o f 00:00: mouth in [place] the morning Branch and 1 tablet in the evening. Indication s: ATRIAL FIBRILLATI ON atorvastati 0 Yes [id number] 40mg Take 1 Univers n 40 mg 4-17 tablet by ity of tablet 00:00: mouth at [place] [address] bedtime. Medical Branch SERTraline Yes [id number] 100mg Take 1 Univers 100 mg 4-17 tablet by ity of tablet 00:00: mouth in [place] the morning. Branch lisinopriL Yes [id number] 2.5mg Take 1 Univers 2.5 mg 4-17 tablet by ity of tablet 00:00: mouth in [place] the morning. Branch metoprolol Yes [id number] 25mg Take 1 U nivers tartrate 25 4-17 tablet by ity of mg tablet 00:00: mouth in [facility] the morning Branch and 1 tablet in the evening. blood sugar Yes [id number] Check U nivers diagnostic 4-17 blood ity of strip 00:00: sugar 2 [place] 00 times a Medical day. Branch E11.9. Brand per insurance. Uses ACCU-CHEK machine Lancets Yes [id number] Check Unive rs Misc 4-17 blood ity of 00:00: sugar 2 [place] [address] times a Medical day. Branch E11.9. Brand per insurance. gabapentin 0 Yes [id number] 300mg Take 1 Univers 300 mg 4-17 capsule by ity of capsule 00:00: mouth in [place] the morning Branch and 1 capsule at noon and 1 capsule in the evening. amiodarone 2022-0 Yes [id number] 200mg Take 1 Univers 200 mg 4-17 tablet by ity of tablet 00:00: mouth in [place] [address] the morning. Branch apixaban 5 0 Yes 5mg Take 1 Unive rs mg tablet 4-17 tablet by ity o f 00:00: mouth in [place] 00 the morning Branch and 1 tablet in the evening. Indication s: ATRIAL FIBRILLATI ON atorvastati Yes [id number] 40mg Take 1 Univers n 40 mg 4-17 tablet by ity of tablet 00:00: mouth at [place] [address] bedtime. Medical Branch SERTraline Yes [id number] 100mg Take 1 Univers 100 mg 4-17 tablet by ity of tablet 00:00: mouth in [place] 00 the morning. Branch lisinopriL Yes [id number] 2.5mg Take 1 Univers 2.5 mg 4-17 tablet by ity of tablet 00:00: mouth in [place] 00 the morning. Branch metoprolol Yes [id number] 25mg Take 1 U nivers tartrate 25 4-17 tablet by ity of mg tablet 00:00: mouth in [facility] 00 the morning Branch and 1 tablet in the evening. blood sugar Yes [id number] Check U nivers diagnostic 4-17 blood ity of strip 00:00: sugar 2 [place] 00 times a Medical day. Branch E11.9. Brand per insurance. Uses ACCU-CHEK machine Lancets Yes [id number] Check Unive rs Misc 4-17 blood ity of 00:00: sugar 2 [place] 00 times a Medical day. Branch E11.9. Brand per insurance. gabapentin Yes [id number] 300mg Take 1 Univers 300 mg 4-17 capsule by ity of capsule 00:00: mouth in [place] 00 the morning Branch and 1 capsule at noon and 1 capsule in the evening. amiodarone Yes [id number] 200mg Take 1 Univers 200 mg 4-17 tablet by ity of tablet 00:00: mouth in [place] 00 the morning. Branch apixaban 5 Yes 5mg Take 1 Unive rs mg tablet 4-17 tablet by ity o f 00:00: mouth in [place] 00 the morning Branch and 1 tablet in the evening. Indication s: ATRIAL FIBRILLATI ON atorvastati Yes [id number] 40mg Take 1 Univers n 40 mg 4-17 tablet by ity of tablet 00:00: mouth at [place] [address] bedtime. Medical Branch SERTraline Yes [id number] 100mg Take 1 Univers 100 mg 4-17 tablet by ity of tablet 00:00: mouth in [place] the morning. Branch lisinopriL Yes [id number] 2.5mg Take 1 Univers 2.5 mg 4-17 tablet by ity of tablet 00:00: mouth in [place] the morning. Branch metoprolol Yes [id number] 25mg Take 1 U nivers tartrate 25 4-17 tablet by ity of mg tablet 00:00: mouth in [facility] 00 the morning Branch and 1 tablet in the evening. blood sugar Yes [id number] Check U nivers diagnostic 4-17 blood ity of strip 00:00: sugar 2 [place] times a Medical day. Branch E11.9. Brand per insurance. Uses ACCU-CHEK machine Lancets Yes [id number] Check Unive rs Misc 4-17 blood ity of 00:00: sugar 2 [place] times a Medical day. Branch E11.9. Brand per insurance. gabapentin Yes [id number] 300mg Take 1 Univers 300 mg 4-17 capsule by ity of capsule 00:00: mouth in [place] the morning Branch and 1 capsule at noon and 1 capsule in the evening. amiodarone Yes [id number] 200mg Take 1 [facility] 200 mg 4-17 tablet by ity of tablet 00:00: mouth in [place] the morning. Branch apixaban 5 Yes 5mg Take 1 Unive rs mg tablet 4-17 tablet by ity o f 00:00: mouth in [place] the morning Branch and 1 tablet in the evening. Indication s: ATRIAL FIBRILLATI ON atorvastati Yes [id number] 40mg Take 1 Univers n 40 mg 4-17 tablet by ity of tablet 00:00: mouth at [place] [address] bedtime. Medical Branch SERTraline Yes [id number] 100mg Take 1 [facility] 100 mg 4-17 tablet by ity of tablet 00:00: mouth in [place] 00 the morning. Branch lisinopriL 0 Yes [id number] 2.5mg Take 1 Univers 2.5 mg 4-17 tablet by ity of tablet 00:00: mouth in [place] the morning. Branch metoprolol 2022-0 Yes [id number] 25mg Take 1 U nivers tartrate 25 4-17 tablet by ity of mg tablet 00:00: mouth in [facility] the morning Branch and 1 tablet in the evening. blood sugar 2022-0 Yes [id number] Check U nivers diagnostic 4-17 blood ity of strip 00:00: sugar 2 [place] times a Medical day. Branch E11.9. Brand per insurance. Uses ACCU-CHEK machine Lancets 2022-0 Yes [id number] Check Unive rs Misc 4-17 blood ity of 00:00: sugar 2 [place] times a Medical day. Branch E11.9. Brand per insurance. gabapentin 2022-0 Yes [id number] 300mg Take 1 [facility] 300 mg 4-17 capsule by ity of capsule 00:00: mouth in [place] the morning Branch and 1 capsule at noon and 1 capsule in the evening. amiodarone 2022-0 Yes [id number] 200mg Take 1 [facility] 200 mg 4-17 tablet by ity of tablet 00:00: mouth in [place] the morning. Branch apixaban 5 2022-0 Yes 5mg Take 1 Unive rs mg tablet 4-17 tablet by ity o f 00:00: mouth in [place] the morning Branch and 1 tablet in the evening. Indication s: ATRIAL FIBRILLATI ON atorvastati 2022-0 Yes [id number] 40mg Take 1 Univers n 40 mg 4-17 tablet by ity of tablet 00:00: mouth at [place] [address] bedtime. Medical Branch SERTraline 2022-0 Yes [id number] 100mg Take 1 [facility] 100 mg 4-17 tablet by ity of tablet 00:00: mouth in [place] the morning. Branch lisinopriL 2022-0 Yes [id number] 2.5mg Take 1 Univers 2.5 mg 4-17 tablet by ity of tablet 00:00: mouth in [place] [address] the morning. Branch metoprolol 2022-0 Yes [id number] 25mg Take 1 U nivers tartrate 25 4-17 tablet by ity of mg tablet 00:00: mouth in [facility] the morning Branch and 1 tablet in the evening. blood sugar 2022-0 Yes [id number] Check U nivers diagnostic 4-17 blood ity of strip 00:00: sugar 2 [place] 00 times a Medical day. Branch E11.9. Brand per insurance. Uses ACCU-CHEK machine Lancets Yes [id number] Check Unive rs Misc 4-17 blood ity of 00:00: sugar 2 [place] 00 times a Medical day. Branch E11.9. Brand per insurance. gabapentin Yes [id number] 300mg Take 1 Univers 300 mg 4-17 capsule by ity of capsule 00:00: mouth in [place] 00 the Medical morning Branch and 1 capsule at noon and 1 capsule in the evening. amiodarone Yes [id number] 200mg Take 1 [facility] 200 mg 4-17 tablet by ity of tablet 00:00: mouth in [place] 00 the morning. Branch apixaban 5 Yes 5mg Take 1 Unive rs mg tablet 4-17 tablet by ity o f 00:00: mouth in [place] the morning Branch and 1 tablet in the evening. Indication s: ATRIAL FIBRILLATI ON atorvastati Yes [id number] 40mg Take 1 Univers n 40 mg 4-17 tablet by ity of tablet 00:00: mouth at [place] [address] bedtime. Medical Branch SERTraline Yes [id number] 100mg Take 1 [facility] 100 mg 4-17 tablet by ity of tablet 00:00: mouth in [place] 00 the morning. Branch lisinopriL Yes [id number] 2.5mg Take 1 Univers 2.5 mg 4-17 tablet by ity of tablet 00:00: mouth in [place] 00 the Medical morning. Branch metoprolol Yes [id number] 25mg Take 1 U nivers tartrate 25 4-17 tablet by ity of mg tablet 00:00: mouth in [facility] 00 the Medical morning Branch and 1 tablet in the evening. blood sugar Yes [id number] Check U nivers diagnostic 4-17 blood ity of strip 00:00: sugar 2 [place] 00 times a Medical day. Branch E11.9. Brand per insurance. Uses ACCU-CHEK machine Lancets 0 Yes [id number] Check Unive rs Misc 4-17 blood ity of 00:00: sugar 2 [place] 00 times a Medical day. Branch E11.9. Brand per insurance. gabapentin 2022-0 Yes [id number] 300mg Take 1 [facility] 300 mg 4-17 capsule by ity of capsule 00:00: mouth in [place] 00 the morning Branch and 1 capsule at noon and 1 capsule in the evening. amiodarone 2022-0 Yes [id number] 200mg Take 1 [facility] 200 mg 4-17 tablet by ity of tablet 00:00: mouth in [place] 00 the morning. Branch apixaban 5 2022-0 Yes 5mg Take 1 Unive rs mg tablet 4-17 tablet by ity o f 00:00: mouth in [place] 00 the morning Branch and 1 tablet in the evening. Indication s: ATRIAL FIBRILLATI ON atorvastati 2022- Yes [id number] 40mg Take 1 Univers n 40 mg 4-17 tablet by ity of tablet 00:00: mouth at [place] [address] bedtime. Medical Branch SERTraline Yes [id number] 100mg Take 1 [facility] 100 mg 4-17 tablet by ity of tablet 00:00: mouth in [place] 00 the morning. Branch lisinopriL Yes [id number] 2.5mg Take 1 Univers 2.5 mg 4-17 tablet by ity of tablet 00:00: mouth in [place] 00 the morning. Branch metoprolol 0 Yes [id number] 25mg Take 1 U nivers tartrate 25 4-17 tablet by ity of mg tablet 00:00: mouth in [facility] 00 the morning Branch and 1 tablet in the evening. blood sugar 2022-0 Yes [id number] Check U nivers diagnostic 4-17 blood ity of strip 00:00: sugar 2 [place] 00 times a Medical day. Branch E11.9. Brand per insurance. Uses ACCU-CHEK machine Lancets 2022-0 Yes [id number] Check Unive rs Misc 4-17 blood ity of 00:00: sugar 2 [place] 00 times a Medical day. Branch E11.9. Brand per insurance. gabapentin 2022-0 Yes [id number] 300mg Take 1 [facility] 300 mg 4-17 capsule by ity of capsule 00:00: mouth in [place] 00 the morning Branch and 1 capsule at noon and 1 capsule in the evening. amiodarone 2022-0 Yes [id number] 200mg Take 1 [facility] 200 mg 4-17 tablet by ity of tablet 00:00: mouth in [place] 00 the morning. Branch apixaban 5 Yes 5mg Take 1 Unive rs mg tablet 4-17 tablet by ity o f 00:00: mouth in [place] the morning Branch and 1 tablet in the evening. Indication s: ATRIAL FIBRILLATI ON atorvastati Yes [id number] 40mg Take 1 Univers n 40 mg 4-17 tablet by ity of tablet 00:00: mouth at [place] [address] bedtime. Medical Branch SERTraline Yes [id number] 100mg Take 1 [facility] 100 mg 4-17 tablet by ity of tablet 00:00: mouth in [place] 00 the morning. Branch lisinopriL Yes [id number] 2.5mg Take 1 Univers 2.5 mg 4-17 tablet by ity of tablet 00:00: mouth in [place] 00 the morning. Branch metoprolol Yes [id number] 25mg Take 1 U nivers tartrate 25 4-17 tablet by ity of mg tablet 00:00: mouth in [facility] the morning Branch and 1 tablet in the evening. blood sugar Yes [id number] Check U nivers diagnostic 4-17 blood ity of strip 00:00: sugar 2 [place] 00 times a Medical day. Branch E11.9. Brand per insurance. Uses ACCU-CHEK machine Lancets Yes [id number] Check Unive rs Misc 4-17 blood ity of 00:00: sugar 2 [place] times a Medical day. Branch E11.9. Brand per insurance. gabapentin Yes [id number] 300mg Take 1 [facility] 300 mg 4-17 capsule by ity of capsule 00:00: mouth in [place] the morning Branch and 1 capsule at noon and 1 capsule in the evening. amiodarone Yes [id number] 200mg Take 1 [facility] 200 mg 4-17 tablet by ity of tablet 00:00: mouth in [place] 00 the morning. Branch apixaban 5 Yes 5mg Take 1 Unive rs mg tablet 4-17 tablet by ity o f 00:00: mouth in [place] the morning Branch and 1 tablet in the evening. Indication s: ATRIAL FIBRILLATI ON atorvastati Yes [id number] 40mg Take 1 Univers n 40 mg 4-17 tablet by ity of tablet 00:00: mouth at [place] [address] bedtime. Medical Branch SERTraline Yes [id number] 100mg Take 1 [facility] 100 mg 4-17 tablet by ity of tablet 00:00: mouth in [place] 00 the morning. Branch lisinopriL Yes [id number] 2.5mg Take 1 Univers 2.5 mg 4-17 tablet by ity of tablet 00:00: mouth in [place] 00 the morning. Branch metoprolol Yes [id number] 25mg Take 1 U nivers tartrate 25 4-17 tablet by ity of mg tablet 00:00: mouth in [facility] the morning Branch and 1 tablet in the evening. blood sugar Yes [id number] Check U nivers diagnostic 4-17 blood ity of strip 00:00: sugar 2 [place] 00 times a Medical day. Branch E11.9. Brand per insurance. Uses ACCU-CHEK machine Lancets Yes [id number] Check Unive rs Misc 4-17 blood ity of 00:00: sugar 2 [place] 00 times a Medical day. Branch E11.9. Brand per insurance. gabapentin Yes [id number] 300mg Take 1 [facility] 300 mg 4-17 capsule by ity of capsule 00:00: mouth in [place] the morning Branch and 1 capsule at noon and 1 capsule in the evening. amiodarone Yes [id number] 200mg Take 1 [facility] 200 mg 4-17 tablet by ity of tablet 00:00: mouth in [place] 00 the morning. Branch apixaban 5 Yes 5mg Take 1 Unive rs mg tablet 4-17 tablet by ity o f 00:00: mouth in [place] the morning Branch and 1 tablet in the evening. Indication s: ATRIAL FIBRILLATI ON atorvastati Yes [id number] 40mg Take 1 [facility] n 40 mg 4-17 tablet by ity of tablet 00:00: mouth at [place] [address] bedtime. Medical Branch SERTraline Yes [id number] 100mg Take 1 [facility] 100 mg 4-17 tablet by ity of tablet 00:00: mouth in [place] 00 the morning. Branch lisinopriL 0 Yes [id number] 2.5mg Take 1 Univers 2.5 mg 4-17 tablet by ity of tablet 00:00: mouth in [place] the morning. Branch metoprolol 2022-0 Yes [id number] 25mg Take 1 U nivers tartrate 25 4-17 tablet by ity of mg tablet 00:00: mouth in [facility] the morning Branch and 1 tablet in the evening. blood sugar 2022-0 Yes [id number] Check U nivers diagnostic 4-17 blood ity of strip 00:00: sugar 2 [place] times a Medical day. Branch E11.9. Brand per insurance. Uses ACCU-CHEK machine Lancets Yes [id number] Check Unive rs Misc 4-17 blood ity of 00:00: sugar 2 [place] times a Medical day. Branch E11.9. Brand per insurance. gabapentin Yes [id number] 300mg Take 1 [facility] 300 mg 4-17 capsule by ity of capsule 00:00: mouth in [place] the morning Branch and 1 capsule at noon and 1 capsule in the evening. amiodarone 0 Yes [id number] 200mg Take 1 [facility] 200 mg 4-17 tablet by ity of tablet 00:00: mouth in [place] the morning. Branch apixaban 5 0 Yes 5mg Take 1 Unive rs mg tablet 4-17 tablet by ity o f 00:00: mouth in [place] the Branch and 1 tablet in the evening. Indication s: ATRIAL FIBRILLATI ON atorvastati 2022-0 Yes [id number] 40mg Take 1 Univers n 40 mg 4-17 tablet by ity of tablet 00:00: mouth at [place] [address] bedtime. Medical Branch SERTraline 2022-0 Yes [id number] 100mg Take 1 [facility] 100 mg 4-17 tablet by ity of tablet 00:00: mouth in [place] the morning. Branch lisinopriL 2022-0 Yes [id number] 2.5mg Take 1 Univers 2.5 mg 4-17 tablet by ity of tablet 00:00: mouth in [place] [address] the morning. Branch metoprolol 2022-0 Yes [id number] 25mg Take 1 U nivers tartrate 25 4-17 tablet by ity of mg tablet 00:00: [facility] the [facility] morning Branch and 1 tablet in the evening. blood sugar Yes [id number] Check U nivers diagnostic 4-17 blood ity of strip 00:00: sugar 2 [place] 00 times a Medical day. Branch E11.9. Brand per insurance. Uses ACCU-CHEK machine Lancets Yes [id number] Check Unive rs Misc 4-17 blood ity of 00:00: sugar 2 [place] times a Medical day. Branch E11.9. Brand per insurance. gabapentin Yes [id number] 300mg Take 1 [facility] 300 mg 4-17 capsule by ity of capsule 00:00: mouth in [place] the morning Branch and 1 capsule at noon and 1 capsule in the evening. amiodarone Yes [id number] 200mg Take 1 [facility] 200 mg 4-17 tablet by ity of tablet 00:00: mouth in [place] 00 the morning. Branch apixaban 5 Yes 5mg Take 1 Unive rs mg tablet 4-17 tablet by ity o f 00:00: mouth in [place] the morning Branch and 1 tablet in the evening. Indication s: ATRIAL FIBRILLATI ON atorvastati Yes [id number] 40mg Take 1 Univers n 40 mg 4-17 tablet by ity of tablet 00:00: mouth at [place] 00 bedtime. Medical Branch SERTraline Yes [id number] 100mg Take 1 [facility] 100 mg 4-17 tablet by ity of tablet 00:00: mouth in [place] 00 the morning. Branch lisinopriL Yes [id number] 2.5mg Take 1 Univers 2.5 mg 4-17 tablet by ity of tablet 00:00: mouth in [place] 00 the Medical morning. Branch metoprolol Yes [id number] 25mg Take 1 U nivers tartrate 25 4-17 tablet by ity of mg tablet 00:00: mouth in [facility] 00 the morning Branch and 1 tablet in the evening. blood sugar 0 Yes [id number] Check U nivers diagnostic 4-17 blood ity of strip 00:00: sugar 2 [place] 00 times a Medical day. Branch E11.9. Brand per insurance. Uses ACCU-CHEK machine Lancets Yes [id number] Check Unive rs Misc 4-17 blood ity of 00:00: sugar 2 [place] times a Medical day. Branch E11.9. Brand per insurance. gabapentin Yes [id number] 300mg Take 1 [facility] 300 mg 4-17 capsule by ity of capsule 00:00: mouth in [place] 00 the Medical morning Branch and 1 capsule at noon and 1 capsule in the evening. amiodarone Yes [id number] 200mg Take 1 [facility] 200 mg 4-17 tablet by ity of tablet 00:00: mouth in [place] 00 the morning. Branch apixaban 5 Yes 5mg Take 1 Unive rs mg tablet 4-17 tablet by ity o f 00:00: mouth in [place] 00 the Medical morning Branch and 1 tablet in the evening. Indication s: ATRIAL FIBRILLATI ON atorvastati Yes [id number] 40mg Take 1 Univers n 40 mg 4-17 tablet by ity of tablet 00:00: mouth at [place] [address] bedtime. Medical Branch SERTraline Yes [id number] 100mg Take 1 [facility] 100 mg 4-17 tablet by ity of tablet 00:00: mouth in [place] the morning. Branch lisinopriL Yes [id number] 2.5mg Take 1 Univers 2.5 mg 4-17 tablet by ity of tablet 00:00: mouth in [place] the morning. Branch metoprolol Yes [id number] 25mg Take 1 U nivers tartrate 25 4-17 tablet by ity of mg tablet 00:00: mouth in [facility] the Medical morning Branch and 1 tablet in the evening. blood sugar Yes [id number] Check U nivers diagnostic 4-17 blood ity of strip 00:00: sugar 2 [place] 00 times a Medical day. Branch E11.9. Brand per insurance. Uses ACCU-CHEK machine Lancets Yes [id number] Check Unive rs Misc 4-17 blood ity of 00:00: sugar 2 [place] 00 times a Medical day. Branch E11.9. Brand per insurance. gabapentin Yes [id number] 300mg Take 1 [facility] 300 mg 4-17 capsule by ity of capsule 00:00: mouth in [place] 00 the Medical morning Branch and 1 capsule at noon and 1 capsule in the evening. amiodarone Yes [id number] 200mg Take 1 [facility] 200 mg 4-17 tablet by ity of tablet 00:00: mouth in [place] the morning. Branch apixaban 5 0 Yes 5mg Take 1 Unive rs mg tablet 4-17 tablet by ity o f 00:00: mouth in [place] the morning Branch and 1 tablet in the evening. Indication s: ATRIAL FIBRILLATI ON atorvastati 2022-0 Yes [id number] 40mg Take 1 Univers n 40 mg 4-17 tablet by ity of tablet 00:00: mouth at [place] [address] bedtime. Medical Branch SERTraline Yes [id number] 100mg Take 1 [facility] 100 mg 4-17 tablet by ity of tablet 00:00: mouth in [place] the morning. Branch lisinopriL Yes [id number] 2.5mg Take 1 Univers 2.5 mg 4-17 tablet by ity of tablet 00:00: mouth in [place] the morning. Branch metoprolol Yes [id number] 25mg Take 1 U nivers tartrate 25 4-17 tablet by ity of mg tablet 00:00: mouth in [facility] the morning Branch and 1 tablet in the evening. blood sugar 0 Yes [id number] Check U nivers diagnostic 4-17 blood ity of strip 00:00: sugar 2 [place] 00 times a Medical day. Branch E11.9. Brand per insurance. Uses ACCU-CHEK machine Lancets Yes [id number] Check Unive rs Misc 4-17 blood ity of 00:00: sugar 2 [place] [address] times a Medical day. Branch E11.9. Brand per insurance. gabapentin 0 Yes [id number] 300mg Take 1 [facility] 300 mg 4-17 capsule by ity of capsule 00:00: mouth in [place] the morning Branch and 1 capsule at noon and 1 capsule in the evening. amiodarone 2022-0 Yes [id number] 200mg Take 1 Univers 200 mg 4-17 tablet by ity of tablet 00:00: mouth in [place] [address] the morning. Branch apixaban 5 0 Yes 5mg Take 1 Unive rs mg tablet 4-17 tablet by ity o f 00:00: mouth in [place] 00 the Medical morning Branch and 1 tablet in the evening. Indication s: ATRIAL FIBRILLATI ON atorvastati Yes [id number] 40mg Take 1 Univers n 40 mg 4-17 tablet by ity of tablet 00:00: mouth at [place] 00 bedtime. Medical Branch SERTraline Yes [id number] 100mg Take 1 [facility] 100 mg 4-17 tablet by ity of tablet 00:00: mouth in [place] 00 the Medical morning. Branch lisinopriL Yes [id number] 2.5mg Take 1 Univers 2.5 mg 4-17 tablet by ity of tablet 00:00: mouth in [place] 00 the Medical morning. Branch metoprolol Yes [id number] 25mg Take 1 U nivers tartrate 25 4-17 tablet by ity of mg tablet 00:00: mouth in [facility] 00 the Medical morning Branch and 1 tablet in the evening. blood sugar Yes [id number] Check U nivers diagnostic 4-17 blood ity of strip 00:00: sugar 2 [place] 00 times a Medical day. Branch E11.9. Brand per insurance. Uses ACCU-CHEK machine Lancets 0 Yes [id number] Check Unive rs Misc 4-17 blood ity of 00:00: sugar 2 [place] 00 times a Medical day. Branch E11.9. Brand per insurance. blood sugar 2022-0 2023- No [id number] Check Univers diagnostic 4-17 04-17 blood ity of strip 00:00: 00:00 sugar 2 [place] 00 :00 times a Medical day. Branch E11.9. Brand per insurance. Uses ACCU-CHEK machine blood sugar 2022-0 2023- No [id number] Check Univers diagnostic 4-17 04-17 blood ity of strip 00:00: 00:00 sugar 2 [place] 00 :00 times a Medical day. Branch E11.9. Brand per insurance. Uses ACCU-CHEK machine blood sugar 2022-0 2023- No [id number] Check Univers diagnostic 4-17 04-17 blood ity of strip 00:00: 00:00 sugar 2 [place] 00 :00 times a Medical day. Branch E11.9. Brand per insurance. Uses ACCU-CHEK machine amiodarone 2023-0 Yes 200mg Take 1 Univ ers 200 mg 4-12 tablet by ity of tablet 00:00: mouth in [place] 00 the Medical morning. Branch SERTraline 2023-0 Yes 25mg Take 1 Unive rs 25 mg 4-12 tablet by ity of tablet 00:00: mouth in [place] 00 the Medical morning. Branch amiodarone 2023-0 Yes 200mg Take 1 Univ ers 200 mg 4-12 tablet by ity of tablet 00:00: mouth in [place] 00 the Medical morning. Branch SERTraline 2023-0 Yes 25mg Take 1 Unive rs 25 mg 4-12 tablet by ity of tablet 00:00: mouth in [place] 00 the Medical morning. Branch amiodarone 2023-0 Yes 200mg Take 1 Univ ers 200 mg 4-12 tablet by ity of tablet 00:00: mouth in [place] 00 the Medical morning. Branch SERTraline 2023-0 Yes 25mg Take 1 Unive rs 25 mg 4-12 tablet by ity of tablet 00:00: mouth in [place] 00 the Medical morning. Branch amiodarone 2023-0 2023- No 200mg Take 1 Uni vers 200 mg 4-12 04-17 tablet by ity of tablet 00:00: 00:00 mouth in [place] 00 :00 the Medical morning. Branch SERTraline 2023-0 2023- No 100mg Take 1 Uni vers 100 mg 4-12 04-17 tablet by ity of tablet 00:00: 00:00 mouth in [place] 00 :00 the Medical morning. Branch amiodarone 2023-0 2023- No 200mg Take 1 Uni vers 200 mg 4-12 04-17 tablet by ity of tablet 00:00: 00:00 mouth in [place] 00 :00 the Medical morning. Branch SERTraline 2023-0 2023- No 100mg Take 1 Uni vers 100 mg 4-12 04-17 tablet by ity of tablet 00:00: 00:00 mouth in [place] 00 :00 the Medical morning. Branch amiodarone 2023-0 2023- No 200mg Take 1 Uni vers 200 mg 4-12 04-17 tablet by ity of tablet 00:00: 00:00 mouth in [place] 00 :00 the Medical morning. Branch SERTraline 2023-0 2023- No 100mg Take 1 Uni vers 100 mg 4-12 04-17 tablet by ity of tablet 00:00: 00:00 mouth in [place] 00 :00 the Medical morning. Branch sodium Yes Topical, Univers hypochlorit 4-11 BID, First it y of e 0.025% 01:00: dose on [place] ([employer]) 00 Mon Medical solution 07/29/22 at Branc h 2000, Until Discontinu ed, Routine iron 2022- No 500mg 500 mg, IV Unive rs sucrose 07-29 Infusion, ity of (VENOFER) 19:15: 23:11 ONCE, [place] 500 mg in 00 :00 Administer Medi dilshad NaCl 0.9% over 2.5 Branch (NS) 250 mL Hours, On infusion 07/29/22 at 1415, For 1 dose iopamidol 2022- No [id number] 80mL 80 mL, Univers (ISOVUE 07-29 Intravenou ity o f 370-500 mL) 16:26: 16:26 s, ONCE, 1 [place] injection 00 :00 dose, On Medica l 80 mL Mon Branch 07/29/22 at 1145, Routine lidocaine 2022- No 20mL 20 mL, Unive rs 1% 07-29 Infiltrati ity of (XYLOCAINE) 16:00: 15:27 on, ONCE, [place] 10 mg/mL (1 00 :00 1 dose, On Me dical %) Mon Branch injection 07/29/22 at 20 mL 1100, STAT lactated 2022- No 1000mL at 100 Univ ers ringers IV 07-29-10 mL/hr, ity of infusion 15:30: 15:36 1,000 mL, [place] 1,000 mL 00 :20 Intravenou Medic al s, ONCE, 1 Branch dose, On 07/29/22 at 1030, Routine acetaminoph Yes 650mg 650 mg, Un anil en 10 Oral, ity of (TYLENOL) 01:52: Q6HPRN, [place] tablet 650 10 Starting Medic al mg on Sun Branch 07/28/22 at 2052, Until Discontinu ed, Routine, Pain (scale 1-3), Temp > 38 C sodium 2023-0 2023- No 50meq 50 mEq, Univer s bicarbonate 07-28 Slow IV ity of 1 mEq/mL 20:00: 19:38 Push, [place] (8.4 %) 00 :00 ONCE, 1 Medical injection dose, On Branch 50 mEq [place] 07/28/22 at 1500, Routine amiodarone Yes 200mg 200 mg, Uni vers (PACERONE) 07-28 Oral, ity of tablet 200 14:00: DAILY, [place] mg 00 First dose Medical on [facility] 07/28/22 at 0900, Until Discontinu ed, Routine SERTraline Yes 25mg 25 mg, Unive rs (ZOLOFT) 07-28 Oral, ity of tablet 25 14:00: DAILY, [place] mg 00 First dose Medical on [facility] 07/28/22 at 0900, Until Discontinu ed, Routine Sliding Yes Subcutaneo Univ ers Scale 07-28 us, TID ity of Insulin - 13:00: MEALS+HS, [place] Lispro 00 First dose Medical (HumaLOG) + on [facility] 07/28/22 at Testing 0800, Until Discontinu ed, Routine levETIRAcet 2022- No 500mg 500 mg, U nivers am (KEPPRA) 07-28 Oral, BID, i ty of tablet 500 13:00: 12:48 First dose [place] mg 00 :43 on [facility] 07/28/22 at Branch 0800, Until Discontinu ed, Routine vancomycin 2022- No 15mg/kg 1,500 mg Univers (VANCOCIN) 07-28 (rounded ity of 1,500 mg in 11:00: 13:55 from 1,380 [place] NaCl 0.9% 00 :31 mg = 15 Medical (NS) 500 mL mg/kg ?92 Bra [facility] VIAL-MATE kg), IV IV Piggyback, piggyback Q24H ABX, 7 doses, First dose (after last modificati on) on [place] 07/28/22 at 0600, Last dose on 08/03/22 at 0600, Administer over 90 Minutes, 500 mL
Reas on for Anti-Infec tive: Documented Infection< br>Documen yana Infection Site: Skin / Soft Tissue
Duration of Therapy: 7 days furosemide 2022- No 20mg 20 mg, Univ ers (LASIX) 07-28- Slow IV ity of injection 10:30: 10:30 Push, [place] 20 mg 00 :00 ONCE, 1 Medical dose, On Branch [place] 07/28/22 at 0530, Routine NaCl 0.9% 2022- No 500mL at 999 Univ ers (NS) bolus 07-28- mL/hr, 500 it y of infusion 09:54: 11:57 mL, IV [place] 500 mL 00 :00 Piggyback, Medical ONCE, 1 Branch dose, On [place] 07/28/22 at 0500, STAT lactated 2022- No 1000mL at 999 Univ ers ringers IV 07-28 mL/hr, ity of infusion 08:30: 09:06 1,000 mL, [place] 1,000 mL 00 :00 Intravenou Medic al s, ONCE, 1 Branch dose, On [place] 07/28/22 at 0330, Routine HEPARIN 2022- No 4000U 4,000 Univers SODIUM 07-28 Units, IV ity of (PORCINE) 07:45: 08:24 [place], [place] 1,000 00 :00 ONCE, 1 Medical UNIT/ML dose, On Branch BOLUS ACS [place] 07/28/22 ORDER SET at 0245, GELA dextrose Yes 250mL 250 mL, IV Un anil 10% (D10W) 07-28 Infusion, ity of bolus 07:32: PRN - SEE [place] infusion 32 INSTRUCTIO Medic al 250 mL NS, Branch Administer over 60 Minutes, Other, If blood glucose is < or = 70 mg/dL and patient is unable to swallow or has mental status changes, Starting on [place] 07/28/22 at 0232
If blood glucose is [...] to swallow or has mental changes. heparin 2022-0 2022- No 0U/h 0-2,150 Univer s 25,000 [...] Rang e, Dosing and Testing: &nbs p;FOR [facility] ONLY &nbs p; - aPTT [...] reached.&n bsp; &nbs p; __ &n bsp;FOR [facility] ONLY - aPTT < 40: & [...] mL vial) 11 :03 on [facility] for 07/28/22 at Branch Rebolusing 0230, Until 07/29/22 at 0943, Routine
Dosing based on aPPT testing parameters (refer to continuous heparin drip order).
ceFEPIme 2022- No 1000mg 1,000 mg, U nivers (MAXIPIME) 07-28 IV ity of 1,000 mg in 07:30: 09:39 [place], [place] NaCl 0.9% 00 :00 ONCE, 1 Medical (NS) 100 mL dose, On Bran ch MINI-BAG [place] 07/28/22 at 0230, Administer over 30 Minutes, [...] Tissue
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 cephALEXin 2022- No [id number] 500mg Take 1 Univers (KEFLEX) 07-1911 capsule by ity of 500 mg 00:00: 00:00 mouth 4 [place] capsule 00 :00 (four) Medical times Branch daily. HYDROcodone 2022- Yes [id number] 1{tbl} Take 1 U nivers -acetaminop 07-1908 tablet by it y of hen (NORCO) 00:00: 04:59 [place] 10-325 mg 00 :00 every 6 Medical tablet (six) Branch hours as needed for Pain (scale 7-10) for up to 7 days. Indication s: acute pain sulfamethox 2022-0 2023- Yes [id number] 2{tbl} Take 2 Univers azole-trime 3-31 04-08 tablets by i ty of thoprim 00:00: 04:59 mouth [place] 800-160 mg 00 :00 every 12 Medic al per tablet (twelve) Branc h hours for 7 days. famotidine 2022-0 Yes 20mg Q.5D Take 1 Metho di (PEPCID) 20 3-15 tablet (20 st MG tablet 15:57: mg total) Hos juan jose 16 by mouth 2 l (two) times a day. docusate 2022-0 Yes 100mg Q.5D Take 1 Method i sodium 3-[address] (COLACE) 15:57: (100 mg Hospit a 100 MG 16 total) by l capsule mouth 2 (two) times a day. lisinopriL 2022-0 Yes 2.5mg QD Take 1 Meth greer (PRINIVIL) 3-[address] 2.5 mg 15:57: (2.5 mg Hospita tablet 16 total) by l mouth daily. metoprolol 2022-0 Yes 25mg Q12H Take 1 Metho di tartrate 3-15 tablet (25 st (LOPRESSOR) 15:57: mg total) H ospita 25 mg 16 by mouth l tablet every 12 (twelve) hours. polyethylen 2022-0 Yes 17g QD Take 17 g M ethodi e glycol 3-[address] (MIRALAX) 15:57: daily. MIX Ho spita 17 gram 16 WITH 6 OZ l packet OF JUICE OR WATER HYDROcodone 2022-0 Yes [id number] 1{tbl} Q6H Take 1 M ethodi -acetaminop 3-[address] hen (NORCO) 15:57: mouth Hospi ta 10-325 mg 16 every 6 l per tablet (six) hours as needed for moderate pain .acute pain. sennosides- 2022-0 Yes 1{tbl} Q24H Take 1 Me thodi docusate 3-[address] sodium 15:57: mouth Hospita (SENOKOT-S) 16 daily. l 8.6-50 mg per tablet insulin 2022-0 Yes 14U QD Inject 14 Metho di GLARGINE 3-[address] (LANTUS 15:57: under the Hospi ta SOLOSTAR) 16 skin every l 100 unit/mL morning. injection (pen) insulin 2022-0 Yes Inject [facility] LISPRO 3-[address] (ADMELOG) 15:57: skin. Hospita 100 unit/mL 16 SLIDING l subcutaneou SCALE s pen acetaminoph 2022-0 Yes 650mg Q6H Take 2 [facility] en 3-[address] (TYLENOL) 15:57: (650 mg Hospi ta 325 MG 16 total) by l tablet mouth every 6 (six) hours as needed for fever. famotidine 2022-0 Yes 20mg Q.5D Take 1 Metho di (PEPCID) 20 3-15 tablet (20 st MG tablet 15:57: mg total) [facility] 16 by mouth 2 l (two) times a day. docusate 2022-0 Yes 100mg Q.5D Take 1 [facility] i sodium 3-[address] (COLACE) 15:57: (100 mg Hospit a 100 MG 16 total) by l capsule mouth 2 (two) times a day. lisinopriL 2022-0 Yes 2.5mg QD Take 1 Meth greer (PRINIVIL) 3-[address] 2.5 mg 15:57: (2.5 mg Hospita tablet 16 total) by l mouth daily. metoprolol 2022-0 Yes 25mg Q12H Take 1 Metho di tartrate 3-15 tablet (25 st (LOPRESSOR) 15:57: mg total) H [facility]spita 25 mg 16 by mouth l tablet every 12 (twelve) hours. polyethylen 2022-0 Yes 17g QD Take 17 g M ethodi e glycol 3-[address] (MIRALAX) 15:57: daily. MIX Ho spita 17 gram 16 WITH 6 OZ l packet OF JUICE OR WATER HYDROcodone 3-0 Yes [id number] 1{tbl} Q6H Take 1 M ethodi -acetaminop 3-[address] hen (NORCO) 15:57: mouth Hospi ta 10-325 mg 16 every 6 l per tablet (six) hours as needed for moderate pain .acute pain. sennosides- 2022-0 Yes 1{tbl} Q24H Take 1 [facility] docusate 3-[address] sodium 15:57: mouth [facility]ospita (SENOKOT-S) 16 daily. l 8.6-50 mg per tablet insulin 2022-0 Yes 14U QD Inject 14 Metho di GLARGINE 3-[address] (LANTUS 15:57: under the Hospi ta SOLOSTAR) 16 skin every l 100 unit/mL morning. injection (pen) insulin 0 Yes Inject [facility] LISPRO 3-[address] (ADMELOG) 15:57: skin. [facility]ospita 100 unit/mL 16 SLIDING l subcutaneou SCALE s pen acetaminoph 2022-0 Yes 650mg Q6H Take 2 [facility]odi en 3-[address] (TYLENOL) 15:57: (650 mg [facility]pi ta 325 MG 16 total) by l tablet mouth every 6 (six) hours as needed for fever. famotidine 2022-0 Yes 20mg Q.5D Take 1 Metho di (PEPCID) 20 3-15 tablet (20 st MG tablet 15:57: mg total) [facility] 16 by mouth 2 l (two) times a day. docusate 2022-0 Yes 100mg Q.5D Take 1 [facility] i sodium 3-[address] (COLACE) 15:57: (100 mg Hospit a 100 MG 16 total) by l capsule mouth 2 (two) times a day. lisinopriL 2022-0 Yes 2.5mg QD Take 1 Meth greer (PRINIVIL) 3-[address] 2.5 mg 15:57: (2.5 mg Hospita tablet 16 total) by l mouth daily. metoprolol 2022-0 Yes 25mg Q12H Take 1 Metho di tartrate 3-15 tablet (25 st (LOPRESSOR) 15:57: mg total) [facility]sp[facility] 25 mg 16 by mouth l tablet every 12 (twelve) hours. polyethylen 2022-0 Yes 17g QD Take 17 g M ethodi e glycol 3-[address] (MIRALAX) 15:57: daily. MIX [facility] 17 gram 16 WITH 6 OZ l packet OF JUICE OR WATER HYDROcodone 2022-0 Yes [id number] 1{tbl} Q6H Take 1 M ethodi -acetaminop 3-[address] hen (NORCO) 15:57: mouth Hospi ta 10-325 mg 16 every 6 l per tablet (six) hours as needed for moderate pain .acute pain. sennosides- Yes 1{tbl} Q24H Take 1 [facility] docusate 3-[address] sodium 15:57: mouth [facility]osp[facility] (SENOKOT-S) 16 daily. l 8.6-50 mg per tablet insulin Yes 14U QD Inject 14 Metho di GLARGINE 3-[address] (LANTUS 15:57: under the Hospi ta SOLOSTAR) 16 skin every l 100 unit/mL morning. injection (pen) insulin Yes Inject [facility] LISPRO 3-[address] (ADMELOG) 15:57: skin. [facility]ospita 100 unit/mL 16 SLIDING l subcutaneou SCALE s pen acetaminoph Yes 650mg Q6H Take 2 [facility]odi en 3-[address] (TYLENOL) 15:57: (650 mg [facility] 325 MG 16 total) by l tablet mouth every 6 (six) hours as needed for fever. lidocaine [address] 1 [facility] % 3-[address] 00:00: the skin [facility]osp[facility] 00 daily. l Remove and discard patch within 12 hours or as directed by physician. lidocaine [address] 1 [facility] % 3-[address] 00:00: the skin [facility]osp[facility] 00 daily. l Remove and discard patch within 12 hours or as directed by physician. lidocaine [address] 1 [facility] % 3-[address] 00:00: the skin [facility]osp[facility] 00 daily. l Remove and discard patch within 12 hours or as directed by physician. lidocaine [address] 1 [facility] % 3-[address] 00:00: the skin [facility]osp[facility] 00 daily. l Remove and discard patch within 12 hours or as directed by physician. lidocaine [address] 1 [facility] % 3-[address] 00:00: the skin [facility]osp[facility] 00 daily. l Remove and discard patch within 12 hours or as directed by physician. lidocaine [address] 1 [facility] % 3-[address] 00:00: the skin [facility]osp[facility] 00 daily. l Remove and discard patch within 12 hours or as directed by physician. vancomycin 2022-2022- No 1000mg Q12H Infuse [facility] 1,000 mg in 07-03 1,[address] sodium 00:00: 04:59 into a Hospita chloride 00 :00 venous l 0.9% 250 mL catheter IVPB every 12 (twelve) hours for 6 days. meropenem 1 2022- No 1g Q12H Infuse 1 g Methodi g in sodium 07-[address] chloride 00:00: 04:59 venous Hospit a 0.9% 100 mL 00 :00 catheter l IVPB every 12 (twelve) hours for 6 days. vancomycin 2022- No 1000mg Q12H Infuse [facility] 1,000 mg in 07-03 1,[address] sodium 00:00: 04:59 into a [facility]osp[facility] chloride 00 :00 venous l 0.9% 250 mL catheter IVPB every 12 (twelve) hours for 6 days. meropenem 1 2022- No 1g Q12H Infuse 1 g [facility]i g in sodium 07-[address] chloride 00:00: 04:59 venous Hospit a 0.9% 100 mL 00 :00 catheter l IVPB every 12 (twelve) hours for 6 days. vancomycin 2022- No 1000mg Q12H Infuse [facility] 1,000 mg in 07-03 1,[address] sodium 00:00: 04:59 into a [facility]osp[facility] chloride 00 :00 venous l 0.9% 250 mL catheter IVPB every 12 (twelve) hours for 6 days. meropenem 1 2022-0 2022- No 1g Q12H Infuse 1 g Methodi g in sodium 07-[address] chloride 00:00: 04:59 venous Hospit a 0.9% 100 mL 00 :00 catheter l IVPB every 12 (twelve) hours for 6 days. levoFLOXaci 2022-2022- No [id number] 500mg QD Take 1 [facility]i n 06-[id number] (Levaquin) 00:00: 00:00 (500 mg [facility] 500 MG 00 :00 total) by l tablet mouth daily. levoFLOXaci 3-0 3- No [id number] 500mg QD Take 1 Methodi n 06-[id number] (Levaquin) 00:00: 00:00 (500 mg [facility] 500 MG 00 :00 total) by l tablet mouth daily. levoFLOXaci 3-0 3- No [id number] 500mg QD Take 1 Methodi n 06-[id number] (Levaquin) 00:00: 00:00 (500 mg [facility] 500 MG 00 :00 total) by l tablet mouth daily. clopidogreL 2023-0 Yes 75mg QD Take 1 [facility] (PLAVIX) 75 2-21 tablet (75 st mg tablet 00:00: mg total) [facility] 00 by mouth l daily. FOR PAD clopidogreL 2023-0 Yes 75mg QD Take 1 [facility] (PLAVIX) 75 2-21 tablet (75 st mg tablet 00:00: mg total) [facility] 00 by mouth l daily. FOR PAD clopidogreL 2023-0 Yes 75mg QD Take 1 [facility] (PLAVIX) 75 2-21 tablet (75 st mg tablet 00:00: mg total) [facility] 00 by mouth l daily. FOR PAD gabapentin 2023-0 Yes 300mg QD Take 1 Meth [facility] (NEURONTIN) 2-[address] 300 mg 00:00: (300 mg Hospita capsule 00 total) by l mouth nightly. gabapentin 2023-0 Yes 300mg QD Take 1 Meth [facility] (NEURONTIN) 2-[address] 300 mg 00:00: (300 mg [facility]ospita capsule 00 total) by l mouth nightly. gabapentin 2023-0 Yes 300mg QD Take 1 Meth [facility] (NEURONTIN) 2-[address] 300 mg 00:00: (300 mg [facility]ospita capsule 00 total) by l mouth nightly. Eliquis 5 2023-0 Yes 5mg Q.5D Take 1 [facility] i mg tablet 2-19 tablet (5 st 00:00: mg total) [facility]ospita 00 by mouth 2 l (two) times a day. FOR PAD Eliquis 5 2023-0 Yes 5mg Q.5D Take 1 [facility] i mg tablet 2-19 tablet (5 st 00:00: mg total) [facility]ospita 00 by mouth 2 l (two) times a day. FOR PAD Eliquis 5 2023-0 Yes 5mg Q.5D Take 1 [facility] i mg tablet 2-19 tablet (5 st 00:00: mg total) [facility]osp[facility] 00 by mouth 2 l (two) times a day. FOR PAD atorvastati 2023-0 Yes 40mg QD Take 1 Meth greer n (LIPITOR) 2-18 tablet (40 st 40 mg 00:00: mg total) [facility]ospita tablet 00 by mouth l daily. atorvastati 2023-0 Yes 40mg QD Take 1 Meth greer n (LIPITOR) 2-18 tablet (40 st 40 mg 00:00: mg total) [facility]ospita tablet 00 by mouth l daily. atorvastati 2023-0 Yes 40mg QD Take 1 Meth greer n (LIPITOR) 2-18 tablet (40 st 40 mg 00:00: mg total) [facility]ospita tablet 00 by mouth l daily. sertraline 2023-0 Yes 100mg QD Take 1 [facility] (ZOLOFT) 2-[address] 100 MG 00:00: (100 mg [facility]osp[facility] tablet 00 total) by l mouth daily. FOR DEPRESSION sertraline 2023-0 Yes 100mg QD Take 1 [facility] (ZOLOFT) 2-[address] 100 MG 00:00: (100 mg [facility]osp[facility] tablet 00 total) by l mouth daily. FOR DEPRESSION sertraline 2023-0 Yes 100mg QD Take 1 [facility] gre[facility] (ZOLOFT) 2-[address] 100 MG 00:00: (100 mg [facility]osp[facility] tablet 00 total) by l mouth daily. FOR DEPRESSION amIODarone 2023-0 Yes 200mg QD Take 1 [facility] (PACERONE) 2-[address] 200 MG 00:00: (200 mg [facility]ospita tablet 00 total) by l mouth daily. amIODarone 2023-0 Yes 200mg QD Take 1 [facility] (PACERONE) 2-[address] 200 MG 00:00: (200 mg [facility]osp[facility] tablet 00 total) by l mouth daily. amIODarone 2023-0 Yes 200mg QD Take 1 Meth [facility] (PACERONE) 2-[address] 200 MG 00:00: (200 mg [facility]ospita tablet 00 total) by l mouth daily. cephalexin 2022- No Method i (KEFLEX) 06-05-15 st 500 MG 00:00: 00:00 Hospita capsule 00 :00 l cephalexin 2022- No Method i (KEFLEX) 06-05-15 st 500 MG 00:00: 00:00 Hospita capsule 00 :00 l cephalexin 2022- No Method i (KEFLEX) 06-05-15 st 500 MG 00:00: 00:00 Hospita capsule 00 :00 l benzonatate 2022-0 Yes Take by Met h[facility] (TESSALON) 1-[address] 100 MG 00:00: Hospita capsule 00 l benzonatate 2022-0 Yes Take by [facility] (TESSALON) 1-[address] 100 MG 00:00: [facility]ospita capsule 00 l benzonatate 2022-0 Yes Take by Met [facility] (TESSALON) 1-[address] 100 MG 00:00: Hospita capsule 00 l sennosides- 2022-2022- No 2{tbl} Take 2 M ethodi docusate 05-14-[address] sodium 00:00: 00:00 mouth. [facility]ospita (SENOKOT-S) 00 :00 l 8.6-50 mg per tablet sennosides- 2022-0 2022- No 2{tbl} Take 2 M ethodi docusate 05-14-[address] sodium 00:00: 00:00 mouth. [facility]osp[facility] (SENOKOT-S) 00 :00 l 8.6-50 mg per tablet sennosides- 2022-0 2022- No 2{tbl} Take 2 M ethodi docusate 05-14 03-[address] sodium 00:00: 00:00 mouth. [facility]osp[facility] (SENOKOT-S) 00 :00 l 8.6-50 mg per tablet insulin 2022- No 14U QD Inject Methodi detemir 05-[address] U-100 00:00: 05:59 (14 Units Hospit a (Levemir 00 :00 total) l U-100 under the Insulin) skin daily 100 unit/mL for 30 injection days. metoprolol 2022- No 25mg Q.5D Take 1 [facility] tartrate 05-14- tablet (25 st (LOPRESSOR) 00:00: 05:59 mg total) [facility]ospita 25 mg 00 :00 by mouth 2 l tablet (two) times a day for 30 days. acetaminoph 2022- No 650mg Q6H Take 2 [facility] en 05-[address] (TYLENOL) 00:00: 05:59 (650 mg [facility] 325 MG 00 :00 total) by l tablet mouth every 6 (six) hours as needed for fever (Fever GREATER than 100.5 F) for up to 30 days. benzonatate 2022- No 100mg Q6H Take 1 [facility] (TESSALON) 05-[address] 100 MG 00:00: 05:59 (100 mg [facility]ospita capsule 00 :00 total) by l mouth every 6 (six) hours as needed for cough for up to 30 days. docusate 2022- No 100mg Q.5D Take 1 Metho di sodium 05-[address] (COLACE) 00:00: 05:59 (100 mg Hospi ta 100 MG 00 :00 total) by l capsule mouth 2 (two) times a day for 30 days. famotidine 2022- No 20mg Q.5D Take 1 [facility] (PEPCID) 20 05-14 tablet (20 s t MG tablet 00:00: 05:59 mg total) Ho [facility]ita 00 :00 by mouth 2 l (two) times a day for 30 days. polyethylen 2022- No 17g QD Take 17 g Methodi e glycol 05-[address] (MIRALAX) 00:00: 05:59 daily for Ho [facility] 17 gram 00 :00 30 days. l packet senna 2022- No 2{tbl} Q24H Take 2 [facility] (SENOKOT) 05-14- tablets by st 8.6 mg 00:00: 05:59 mouth [facility]ospita tablet 00 :00 daily as l needed for constipati on for up to 30 days. sertraline 2022- No 50mg QD Take 1 [facility] gre[facility] (ZOLOFT) 50 05-14 tablet (50 s t MG tablet 00:00: 05:59 mg total) Ho spita 00 :00 by mouth l daily for 30 days. lisinopriL 2022- No 2.5mg QD Take 1 [facility] (PRINIVIL) 05-[address] 2.5 mg 00:00: 05:59 (2.5 mg [facility]ospita tablet 00 :00 total) by l mouth daily for 30 days. insulin 2022- No 14U QD Inject Methodi detemir 05-[address] U-100 00:00: 05:59 (14 Units Hospit a (Levemir 00 :00 total) l U-100 under the Insulin) skin daily 100 unit/mL for 30 injection days. metoprolol 2022- No 25mg Q.5D Take 1 [facility] tartrate 05-14 tablet (25 st (LOPRESSOR) 00:00: 05:59 mg total) [facility]ospita 25 mg 00 :00 by mouth 2 l tablet (two) times a day for 30 days. acetaminoph 2022- No 650mg Q6H Take 2 [facility] en 05-[address] (TYLENOL) 00:00: 05:59 (650 mg [facility] 325 MG 00 :00 total) by l tablet mouth every 6 (six) hours as needed for fever (Fever GREATER than 100.5 F) for up to 30 days. benzonatate 2022- No 100mg Q6H Take 1 [facility] (TESSALON) 05-[address] 100 MG 00:00: 05:59 (100 mg [facility]ospita capsule 00 :00 total) by l mouth every 6 (six) hours as needed for cough for up to 30 days. docusate 2022- No 100mg Q.5D Take 1 Metho di sodium 05-[address] (COLACE) 00:00: 05:59 (100 mg [facility] ta 100 MG 00 :00 total) by l capsule mouth 2 (two) times a day for 30 days. famotidine 2022- No 20mg Q.5D Take 1 [facility] (PEPCID) 20 05-14 tablet (20 s t MG tablet 00:00: 05:59 mg total) [facility] 00 :00 by mouth 2 l (two) times a day for 30 days. polyethylen 2022- No 17g QD Take 17 g Methodi e glycol 05-[address] (MIRALAX) 00:00: 05:59 daily for [facility] 17 gram 00 :00 30 days. l packet senna 2022- No 2{tbl} Q24H Take 2 [facility] (SENOKOT) 05-[address] 8.6 mg 00:00: 05:59 mouth [facility]osp[facility] tablet 00 :00 daily as l needed for constipati on for up to 30 days. sertraline 2022- No 50mg QD Take 1 [facility] (ZOLOFT) 50 05-14 tablet (50 s t MG tablet 00:00: 05:59 mg total) [facility] 00 :00 by mouth l daily for 30 days. lisinopriL 2022- No 2.5mg QD Take 1 [facility] (PRINIVIL) 05-[address] 2.5 mg 00:00: 05:59 (2.5 mg [facility]ospita tablet 00 :00 total) by l mouth daily for 30 days. insulin 2022- No 14U QD Inject Methodi detemir 05-[address] U-100 00:00: 05:59 (14 Units Hospit a (Levemir 00 :00 total) l U-100 under the Insulin) skin daily 100 unit/mL for 30 injection days. metoprolol 2022- No 25mg Q.5D Take 1 [facility] tartrate 05-14 tablet (25 st (LOPRESSOR) 00:00: 05:59 mg total) [facility]ospita 25 mg 00 :00 by mouth 2 l tablet (two) times a day for 30 days. acetaminoph 2022- No 650mg Q6H Take 2 [facility] en 05-[address] (TYLENOL) 00:00: 05:59 (650 mg [facility] 325 MG 00 :00 total) by l tablet mouth every 6 (six) hours as needed for fever (Fever GREATER than 100.5 F) for up to 30 days. benzonatate 2022- No 100mg Q6H Take 1 [facility] (TESSALON) 05-14- capsule st 100 MG 00:00: 05:59 (100 mg [facility]ospita capsule 00 :00 total) by l mouth every 6 (six) hours as needed for cough for up to 30 days. docusate 2022- No 100mg Q.5D Take 1 [facility]o di sodium 05-14- capsule st (COLACE) 00:00: 05:59 (100 mg Hospi ta 100 MG 00 :00 total) by l capsule mouth 2 (two) times a day for 30 days. famotidine 2022- No 20mg Q.5D Take 1 [facility] (PEPCID) 20 05-14 tablet (20 s t MG tablet 00:00: 05:59 mg total) [facility] 00 :00 by mouth 2 l (two) times a day for 30 days. polyethylen 2022- No 17g QD Take 17 g Methodi e glycol 05-[address] (MIRALAX) 00:00: 05:59 daily for [facility] 17 gram 00 :00 30 days. l packet senna 2022- No 2{tbl} Q24H Take 2 [facility] (SENOKOT) 05-14- tablets by st 8.6 mg 00:00: 05:59 mouth [facility]osp[facility] tablet 00 :00 daily as l needed for constipati on for up to 30 days. sertraline 2022- No 50mg QD Take 1 [facility] (ZOLOFT) 50 05-14-24 tablet (50 s t MG tablet 00:00: 05:59 mg total) [facility] 00 :00 by mouth l daily for 30 days. lisinopriL 2022- No 2.5mg QD Take 1 [facility] (PRINIVIL) 05-14-[address] 2.5 mg 00:00: 05:59 (2.5 mg [facility]ospita tablet 00 :00 total) by l mouth daily for 30 days. cefTRIAXone 0 2022- No 2g Q12H Infuse 2 g [facility] (ROCEPHIN) 05-14-[address] 2 g in 100 00:00: 05:59 venous [facility] ML Mini-Bag 00 :00 catheter l Plus every 12 (twelve) hours for 10 days. HYDROcodone 2022-0 2022- No [id number] 1{tbl} Q6H Take 1 [facility]i -acetaminop 05-14- tablet by st [employer] ([employer]) 00:00: 05:59 mouth [facility] 10-325 mg 00 :00 every 6 l per tablet (six) hours as needed for moderate pain or severe pain for up to 7 days .acute pain. Max Daily Amount: 4 tablets cefTRIAXone 2022-0 2022- No 2g Q12H Infuse 2 g [facility] (ROCEPHIN) 05-[address] 2 g in 100 00:00: 05:59 venous [facility] ML Mini-Bag 00 :00 catheter l Plus every 12 (twelve) hours for 10 days. HYDROcodone 2022-0 2022- No [id number] 1{tbl} Q6H Take 1 [facility] -acetaminop 05-14- tablet by st [employer] ([employer]) 00:00: 05:59 mouth [facility] 10-325 mg 00 :00 every 6 l per tablet (six) hours as needed for moderate pain or severe pain for up to 7 days .acute pain. Max Daily Amount: 4 tablets cefTRIAXone 3-0 3- No 2g Q12H Infuse 2 g [facility] (ROCEPHIN) 05-[address] 2 g in 100 00:00: 05:59 venous [facility] ML Mini-Bag 00 :00 catheter l Plus every 12 (twelve) hours for 10 days. HYDROcodone 2022-0 2022- [place] [id number] 1{tbl} Q6H Take 1 [facility] -acetaminop 05-14- tablet by st [employer] ([employer]) 00:00: 05:59 mouth [facility] 10-325 mg 00 :00 every 6 l per tablet (six) hours as needed for moderate pain or severe pain for up to 7 days .acute pain. Max Daily Amount: 4 tablets apixaban 2021-2022- No 5mg Q.5D Take 1 Method i (ELIQUIS) 5 - tablet (5 st mg tablet 00:00: 05:59 mg total) [facility] 00 :00 by mouth 2 l (two) times a day for 30 days. atorvastati 2021-04 No 40mg QD Take 1 Met hodi n (LIPITOR) - tablet (40 s t 40 mg 00:00: 05:59 mg total) Hospit a tablet 00 :00 by mouth l daily for 30 days. clopidogreL 2021-04 No 75mg QD Take 1 [facility] (PLAVIX) 75 05-25 tablet (75 s t mg tablet 00:00: 05:59 mg total) [facility] 00 :00 by mouth l daily for 30 days. gabapentin 2021-04 No 300mg QD Take 1 [facility] (NEURONTIN) 05-[address] 300 mg 00:00: 05:59 (300 mg [facility]ospita capsule 00 :00 total) by l mouth nightly for 30 days. insulin 2021-04- No 0U [id number] Inject M ethodi lispro 05-25 [id number] 0-[address] (ADMELOG) 00:00: 05:59 3D under the Ho [facility]ita 100 unit/mL 00 :00 skin 3 l injection (three) times a day before meals for 30 days. amIODarone 2021-04- No 200mg Q.5D Take 1 [facility] (PACERONE) 05-[address] 200 MG 00:00: 05:59 (200 mg [facility]ospita tablet 00 :00 total) by l mouth every 12 (twelve) hours for 30 days. apixaban 2021-04- No 5mg Q.5D Take 1 Method i (ELIQUIS) 5 05-25 tablet (5 st mg tablet 00:00: 05:59 mg total) [facility] 00 :00 by mouth 2 l (two) times a day for 30 days. atorvastati 2021-04 No 40mg QD Take 1 Met [facility]odi n (LIPITOR) 05-25 tablet (40 s t 40 mg 00:00: 05:59 mg total) Hospit a tablet 00 :00 by mouth l daily for 30 days. clopidogreL 2021-04 No 75mg QD Take 1 [facility] (PLAVIX) 75 -04 tablet (75 s t mg tablet 00:00: 05:59 mg total) [facility] 00 :00 by mouth l daily for 30 days. gabapentin 2021-04 No 300mg QD Take 1 [facility] (NEURONTIN) - capsule st 300 mg 00:00: 05:59 (300 mg [facility]ospita capsule 00 :00 total) by l mouth nightly for 30 days. insulin 2021-04- No 0U [id number] Inject M ethodi lispro 05-25 [id number] 0-[address] (ADMELOG) 00:00: 05:59 3D under the Ho [facility] 100 unit/mL 00 :00 skin 3 l injection (three) times a day before meals for 30 days. amIODarone 2021-04 No 200mg Q.5D Take 1 [facility] (PACERONE) 05-[address] 200 MG 00:00: 05:59 (200 mg [facility]ospita tablet 00 :00 total) by l mouth every 12 (twelve) hours for 30 days. apixaban 2021-04- No 5mg Q.5D Take 1 Method i (ELIQUIS) 5 05-25 tablet (5 st mg tablet 00:00: 05:59 mg total) [facility] 00 :00 by mouth 2 l (two) times a day for 30 days. atorvastati 2021-04- No 40mg QD Take 1 Met [facility]odi n (LIPITOR) 05-25 tablet (40 s t 40 mg 00:00: 05:59 mg total) Hospit a tablet 00 :00 by mouth l daily for 30 days. clopidogreL 2021-04- No 75mg QD Take 1 [facility] (PLAVIX) 75 - tablet (75 s t mg tablet 00:00: 05:59 mg total) [facility] 00 :00 by mouth l daily for 30 days. gabapentin 2021-04 No 300mg QD Take 1 [facility] (NEURONTIN) 05-[address] 300 mg 00:00: 05:59 (300 mg [facility]osp[facility] capsule 00 :00 total) by l mouth nightly for 30 days. insulin 2021-04- No 0U [id number] Inject M ethodi lispro 05-25 [id number] 0-[address] (ADMELOG) 00:00: 05:59 3D under the Ho [facility] 100 unit/mL 00 :00 skin 3 l injection (three) times a day before meals for 30 days. amIODarone 2021-04- No 200mg Q.5D Take 1 [facility] (PACERONE) 05-[address] 200 MG 00:00: 05:59 (200 mg [facility]ospita tablet 00 :00 total) by l mouth every 12 (twelve) hours for 30 days. insulin 2021-04- No 20U QD Inject 0.2 [facility] detemir -24 mL (20 st U-100 00:00: 00:00 Units [facility]ospita (Levemir 00 :00 total) l U-100 under the Insulin) skin daily 100 unit/mL for 30 injection days. metoprolol 2021-04- No 12.5mg Q.5D Take 0.5 Methodi tartrate 2-[address] (LOPRESSOR) 00:00: 00:00 (12.5 mg H ospita 25 mg 00 :00 total) by l tablet mouth 2 (two) times a day for 30 days. insulin 2021-04- No 20U QD Inject 0.2 Met hodi detemir 230 -24 mL (20 st U-100 00:00: 00:00 Units [facility]ospita (Levemir 00 :00 total) l U-100 under the Insulin) skin daily 100 unit/mL for 30 injection days. metoprolol 2021-04- No 12.5mg Q.5D Take 0.5 [facility] tartrate 230 -[address] (LOPRESSOR) 00:00: 00:00 (12.5 mg H [facility]spita 25 mg 00 :00 total) by l tablet mouth 2 (two) times a day for 30 days. insulin 2021-04- No 20U QD Inject 0.2 Met hodi detemir 2-30 -24 mL (20 st U-100 00:00: 00:00 Units [facility]ospita (Levemir 00 :00 total) l U-100 under the Insulin) skin daily 100 unit/mL for 30 injection days. metoprolol 2021-04 No 12.5mg Q.5D Take 0.5 Methodi tartrate -[address] (LOPRESSOR) 00:00: 00:00 (12.5 mg H [facility]spita 25 mg 00 :00 total) by l tablet mouth 2 (two) times a day for 30 days. acyclovir 2021-04 No 400mg Q.5D Take 2 Meth gre[facility] (ZOVIRAX) - capsules st 200 MG 00:00: 05:59 (400 mg [facility]osp[facility] capsule 00 :00 total) by l mouth 2 (two) times a day for 10 days. acyclovir 2021-04- No 400mg Q.5D Take 2 [facility] gre[facility] (ZOVIRAX) 04-[address] 200 MG 00:00: 05:59 (400 mg [facility]osp[facility] capsule 00 :00 total) by l mouth 2 (two) times a day for 10 days. acyclovir 2021-04 No 400mg Q.5D Take 2 Meth gre[facility] (ZOVIRAX) - capsules st 200 MG 00:00: 05:59 (400 mg [facility]ospita capsule 00 :00 total) by l mouth 2 (two) times a day for 10 days. apixaban 2021-04 No 5mg Q.5D Take 1 Method i (ELIQUIS) 5 04-27 tablet (5 st mg tablet 00:00: 05:59 mg total) [facility] 00 :00 by mouth 2 l (two) times a day for 7 days. apixaban 2021-04 No 5mg Q.5D Take 1 [facility] i (ELIQUIS) 5 - tablet (5 st mg tablet 00:00: 05:59 mg total) [facility] 00 :00 by mouth 2 l (two) times a day for 7 days. apixaban 2021-04 No 5mg Q.5D Take 1 [facility] i (ELIQUIS) 5 04-27 tablet (5 st mg tablet 00:00: 05:59 mg total) [facility] 00 :00 by mouth 2 l (two) times a day for 7 days. apixaban 2021-04- No 5mg Q.5D Take 1 [facility] i (ELIQUIS) 5 2-30 12-30 tablet (5 st mg tablet 00:00: 00:00 mg total) [facility] 00 :00 by mouth 2 l (two) times a day for 30 days. apixaban 2021-04- No 5mg Q.5D Take 1 [facility] i (ELIQUIS) 5 2-30 12-30 tablet (5 st mg tablet 00:00: 00:00 mg total) [facility] 00 :00 by mouth 2 l (two) times a day for 30 days. apixaban 2021-04- No 5mg Q.5D Take 1 [facility] (ELIQUIS) 5 2-30 12-30 tablet (5 st mg tablet 00:00: 00:00 mg total) [facility] 00 :00 by mouth 2 l (two) times a day for 30 days. atorvastati 2021-04 No 40mg QD Take 2 [facility] (LIPITOR) 05-14 12-[address] 20 mg 00:00: 00:00 (40 mg [facility] tablet 00 :00 total) by l mouth daily for 30 days. insulin 2021-04- No 30U QD Inject 0.3 [facility] detemir 05-14 12-30 mL (30 st U-100 00:00: 00:00 Units [facility] (Levemir 00 :00 total) l U-100 under the Insulin) skin daily 100 unit/mL for 30 injection days. insulin 2021-04- No 0U [id number] Inject M ethodi lispro 05-14- [id number] 0-[address] (ADMELOG) 00:00: 00:00 3D under the [facility] 100 unit/mL 00 :00 skin 3 l injection (three) times a day before meals for 30 days. gabapentin 2021-04- No 300mg QD Take 1 [facility] (NEURONTIN) 05-14 12-[address] 300 mg 00:00: 00:00 (300 mg [facility] capsule 00 :00 total) by l mouth nightly for 30 days. aspirin 2021-04 No 81mg QD Take 1 [facility] (ECOTRIN) 05-14 12-30 tablet (81 st 81 MG 00:00: 00:00 mg total) [facility] 00 :00 by mouth l coated daily for tablet 30 days. clopidogreL 2021-04- No 75mg QD Take 1 [facility] (PLAVIX) 75 05-14 12-30 tablet (75 s t mg tablet 00:00: 00:00 mg total) [facility] 00 :00 by mouth l daily for 30 days. atorvastati 2021-04 No 40mg QD Take 2 [facility] (LIPITOR) 05-14 12-[address] 20 mg 00:00: 00:00 (40 mg Hospita tablet 00 :00 total) by l mouth daily for 30 days. insulin 2021-04- No 30U QD Inject 0.3 Met hodi detemir 05-14-30 mL (30 st U-100 00:00: 00:00 Units Hospita (Levemir 00 :00 total) l U-100 under the Insulin) skin daily 100 unit/mL for 30 injection days. insulin 2021-04 No 0U [id number] Inject M ethodi lispro 05-14- [id number] 0-[address] (ADMELOG) 00:00: 00:00 3D under the [facility]ita 100 unit/mL 00 :00 skin 3 l injection (three) times a day before meals for 30 days. gabapentin 2021-04 300mg QD Take 1 Met hodi (NEURONTIN) 05-14-[address] 300 mg 00:00: 00:00 (300 mg [facility]ospita capsule 00 :00 total) by l mouth nightly for 30 days. aspirin 2021-04 No 81mg QD Take 1 [facility] (ECOTRIN) 05-14-30 tablet (81 st 81 MG 00:00: 00:00 mg total) Hospit [facility] 00 :00 by mouth l coated daily for tablet 30 days. clopidogreL 2021-04 No 75mg QD Take 1 Met hodi (PLAVIX) 75 05-14 12-30 tablet (75 s t mg tablet 00:00: 00:00 mg total) [facility] 00 :00 by mouth l daily for 30 days. atorvastati 2021-04 No 40mg QD Take 2 Met hodi n (LIPITOR) 05-14- tablets st 20 mg 00:00: 00:00 (40 mg [facility]ospita tablet 00 :00 total) by l mouth daily for 30 days. insulin 2021-04- No 30U QD Inject 0.3 Met hodi detemir 05-14- mL (30 st U-100 00:00: 00:00 Units [facility]ospita (Levemir 00 :00 total) l U-100 under the Insulin) skin daily 100 unit/mL for 30 injection days. insulin 2021-04- No 0U [id number] Inject M ethodi lispro 05-14 [id number] 0-[address] (ADMELOG) 00:00: 00:00 3D under the [facility] 100 unit/mL 00 :00 skin 3 l injection (three) times a day before meals for 30 days. gabapentin 2021-04 No 300mg QD Take 1 Met hodi (NEURONTIN) 05-[address] 300 mg 00:00: 00:00 (300 mg [facility]ospita capsule 00 :00 total) by l mouth nightly for 30 days. aspirin 2021-04 No 81mg QD Take 1 [facility] (ECOTRIN) 05-14 tablet (81 st 81 MG 00:00: 00:00 mg total) [facility] 00 :00 by mouth l coated daily for tablet 30 days. clopidogreL 2021-04 No 75mg QD Take 1 Met hodi (PLAVIX) 75 05-14 tablet (75 s t mg tablet 00:00: 00:00 mg total) [facility] 00 :00 by mouth l daily for 30 days. ciprofloxac 2021-04- No 500mg Q.5D Take 1 Me thodi in (Cipro) 05-[address] 500 MG 00:00: 05:59 (500 mg Hospita tablet 00 :00 total) by l mouth 2 (two) times a day for 14 days. doxycycline 2021-04- No 50mg Q.5D Take 1 Met hodi (VIBRAMYCIN 05-[address] ) 50 MG 00:00: 05:59 (50 mg [facility]ospita capsule 00 :00 total) by l mouth 2 (two) times a day for 14 days. ciprofloxac 2021-04- No 500mg Q.5D Take 1 Me thodi in (Cipro) 05-[address] 500 MG 00:00: 05:59 (500 mg [facility]ospita tablet 00 :00 total) by l mouth 2 (two) times a day for 14 days. doxycycline 2021-04- No 50mg Q.5D Take 1 Met h[facility] (VIBRAMYCIN 05-[address] ) 50 MG 00:00: 05:59 (50 mg [facility]ospita capsule 00 :00 total) by l mouth 2 (two) times a day for 14 days. ciprofloxac 2021-04- No 500mg Q.5D Take 1 Me [facility]odi in (Cipro) 05-[address] 500 MG 00:00: 05:59 (500 mg [facility]ospita tablet 00 :00 total) by l mouth 2 (two) times a day for 14 days. doxycycline 2021-04 No 50mg Q.5D Take 1 Met [facility] (VIBRAMYCIN 05-[address] ) 50 MG 00:00: 05:59 (50 mg [facility]ospita capsule 00 :00 total) by l mouth 2 (two) times a day for 14 days. metFORMIN 2021- No metformin [facility] (GLUCOPHAGE 8-26 08-23 1,[address] ) 1,000 mg 10:46: 00:00 tablet [facility] tablet 19 :00 Take 1 l tablet twice a day by oral route for 90 days. metFORMIN 2021- No metformin [facility] (GLUCOPHAGE 8-26 08-23 1,[address] ) 1,000 mg 10:46: 00:00 tablet [facility] tablet 19 :00 Take 1 l tablet twice a day by oral route for 90 days. metFORMIN 2021- No metformin [facility] (GLUCOPHAGE 8-26 08-23 1,[address] ) 1,000 mg 10:46: 00:00 tablet [facility] tablet 19 :00 Take 1 l tablet twice a day by oral route for 90 days. metFORMIN 2021- No metformin [facility] (GLUCOPHAGE 8-26 08-23 1,[address] ) 1,000 mg 10:46: 00:00 tablet [facility] tablet 19 :00 Take 1 l tablet twice a day by oral route for 90 days. metFORMIN 2021- No metformin [facility] (GLUCOPHAGE 8 08-23 1,[address] ) 1,000 mg 10:46: 00:00 tablet [facility] tablet 19 :00 Take 1 l tablet twice a day by oral route for 90 days. metFORMIN Yes metformin Met hodi (GLUCOPHAGE 8-26 1,[address] ) 1,000 mg 00:00: tablet Hospi ta tablet 00 Take 1 l tablet twice a day by oral route for 90 days.Stren gth: 1,000 mg metFORMIN Yes metformin Met hodi (GLUCOPHAGE 8-26 1,[address] ) 1,000 mg 00:00: tablet Hospi ta tablet 00 Take 1 l tablet twice a day by oral route for 90 days.Stren gth: 1,000 mg metFORMIN 2022- No metformin [facility] (GLUCOPHAGE 8 01-24 1,[address] ) 1,000 mg 00:00: 00:00 tablet [facility] tablet 00 :00 Take 1 l tablet twice a day by oral route for 90 days.Stren gth: 1,000 mg metFORMIN 2022- No metformin [facility] (GLUCOPHAGE 8 01-24 1,[address] ) 1,000 mg 00:00: 00:00 tablet [facility] tablet 00 :00 Take 1 l tablet twice a day by oral route for 90 days.Stren gth: 1,000 mg metFORMIN 2022- No metformin [facility] (GLUCOPHAGE 8 01-24 1,[address] ) 1,000 mg 00:00: 00:00 tablet [facility] tablet 00 :00 Take 1 l tablet twice a day by oral route for 90 days.Stren gth: 1,000 mg nicotine 2021- No 1{patch QD Place 1 Me [facility] (NICODERM 8-01-14 } patch on st CQ) 21 00:00: 04:59 the skin Hospit a mg/24 hr 00 :00 daily for l 30 days. nicotine 2021- No 1{patch QD Place 1 Me [facility] (NICODERM 8-26 09-26 } patch on st CQ) 21 00:00: 04:59 the skin Hospit a mg/24 hr 00 :00 daily for l 30 days. nicotine 2021-2021- No 1{patch QD Place 1 [facility] (NICODERM 8-26 09-26 } patch on st CQ) 21 00:00: 04:59 the skin Hospit a mg/24 hr 00 :00 daily for l 30 days. nicotine 2021- No 1{patch QD Place 1 Me [facility] (NICODERM 8-26 09-26 } patch on st CQ) 21 00:00: 04:59 the skin Hospit a mg/24 hr 00 :00 daily for l 30 days. nicotine 2021- No 1{patch QD Place 1 Me [facility] (NICODERM 8-26 09-26 } patch on st CQ) 21 00:00: 04:59 the skin Hospit a mg/24 hr 00 :00 daily for l 30 days. nitrofurant 2021- No 100mg Q.5D Take 1 [facility] oin, 11-[address] macrocrysta 00:00: 04:59 (100 mg [facility] l-monohydra 00 :00 total) by l te, mouth 2 (MACROBID) (two) 100 MG times a capsule day for 10 days. nitrofurant 2021-2021- No 100mg Q.5D Take 1 [facility] oin, 11-[address] macrocrysta 00:00: 04:59 (100 mg [facility] l-monohydra 00 :00 total) by l te, mouth 2 (MACROBID) (two) 100 MG times a capsule day for 10 days. nitrofurant 2021-0 2021- No 100mg Q.5D Take 1 [facility] oin, 11-[address] macrocrysta 00:00: 04:59 (100 mg [facility] l-monohydra 00 :00 total) by l te, mouth 2 (MACROBID) (two) 100 MG times a capsule day for 10 days. nitrofurant 2021- No 100mg Q.5D Take 1 Me thodi oin, 11-[address] macrocrysta 00:00: 04:59 (100 mg [facility] l-monohydra 00 :00 total) by l te, mouth 2 (MACROBID) (two) 100 MG times a capsule day for 10 days. nitrofurant 2021- No 100mg Q.5D Take 1 Me thodi oin, 11-[address] macrocrysta 00:00: 04:59 (100 mg [facility] l-monohydra 00 :00 total) by l te, mouth 2 (MACROBID) (two) 100 MG times a capsule day for 10 days. traMADoL 2021- No [id number] 50mg Q6H Take 1 [facility] di (ULTRAM) 50 11-08-29 tablet (50 s t mg tablet 00:00: 04:59 mg total) [facility] spita 00 :00 by mouth l every 6 (six) hours as needed for moderate pain for up to 7 days .acute pain. traMADoL 2021- No [id number] 50mg Q6H Take 1 [facility] di (ULTRAM) 50 11-08-29 tablet (50 s t mg tablet 00:00: 04:59 mg total) [facility] 00 :00 by mouth l every 6 (six) hours as needed for moderate pain for up to 7 days .acute pain. traMADoL 2021- [place] [id number] 50mg Q6H Take 1 [facility] di (ULTRAM) 50 -08 11-29 tablet (50 s t mg tablet 00:00: 04:59 mg total) [facility] 00 :00 by mouth l every 6 (six) hours as needed for moderate pain for up to 7 days .acute pain. traMADoL 2021- No [id number] 50mg Q6H Take 1 [facility] di (ULTRAM) 50 -08 11-29 tablet (50 s t mg tablet 00:00: 04:59 mg total) [facility] 00 :00 by mouth l every 6 (six) hours as needed for moderate pain for up to 7 days .acute pain. traMADoL 2021- [place] [id number] 50mg Q6H Take 1 [facility] di (ULTRAM) 50 -08 11-29 tablet (50 s t mg tablet 00:00: 04:59 mg total) [facility] 00 :00 by mouth l every 6 (six) hours as needed for moderate pain for up to 7 days .acute pain. losartan 2-0 Yes [facility] (COZAAR) 50 6-14 st MG tablet 00:00: Hospita 00 l losartan 2022-0 Yes [facility] (COZAAR) 50 6-14 st MG tablet 00:00: [facility]ospita 00 l losartan 2022-0 2022- No [facility] (COZAAR) 50 6-14 12-30 st MG tablet 00:00: 00:00 Hospita 00 :00 l losartan 2022-0 2022- No [facility] (COZAAR) 50 6-14 12-30 st MG tablet 00:00: 00:00 [facility]ospita 00 :00 l losartan 2022-0 2022- No [facility] (COZAAR) 50 6-14 12-30 st MG tablet 00:00: 00:00 Hospita 00 :00 l ibuprofen 2022-0 2022- No [facility] (ADVIL) 600 6-14 08-26 st MG tablet 00:00: 00:00 [facility]ospita 00 :00 l amoxicillin 2022-0 2022- No Metho di -pot 6-14 08-26 st clavulanate 00:00: 00:00 Hospi ta (AUGMENTIN) 00 :00 l 875-125 mg per tablet ibuprofen 2022-0 2022- No [facility] (ADVIL) 600 6-14 08-26 st MG tablet 00:00: 00:00 [facility]ospita 00 :00 l amoxicillin 2022-0 2022- No Metho di -pot 6-14 08-26 st clavulanate 00:00: 00:00 Hospi ta (AUGMENTIN) 00 :00 l 875-125 mg per tablet ibuprofen 2022-0 2022- No [facility] (ADVIL) 600 6-14 08-26 st MG tablet 00:00: 00:00 Hospita 00 :00 l amoxicillin 2022-0 2022- No Metho di -pot 6-14 08-26 st clavulanate 00:00: 00:00 Hospi ta (AUGMENTIN) 00 :00 l 875-125 mg per tablet ibuprofen 2022-0 2022- No [facility] (ADVIL) 600 6-14 08-26 st MG tablet 00:00: 00:00 Hospita 00 :00 l amoxicillin 2021-0 2021- No Metho di -pot 6-14 08- st clavulanate 00:00: 00:00 Hospi ta (AUGMENTIN) 00 :00 l 875-125 mg per tablet ibuprofen 2021- No [facility] (ADVIL) 600 6-14 08-26 st MG tablet 00:00: 00:00 Hospita 00 :00 l amoxicillin 0 2021- No Metho di -pot 6-14 -26 st clavulanate 00:00: 00:00 Hospi ta (AUGMENTIN) 00 :00 l 875-125 mg per tablet HumaLOG Yes INJECT 5 [facility] i U-100 4-[address] Insulin 100 00:00: SUBCUTANEO Hospita unit/mL 00 USLY l subcutaneou BEFORE s vial MEALS. VIAL EXPIRES 28 DAYS AFTER FIRST USE. Lantus Yes INJECT 15 [facility] U-100 4-[address] Insulin 100 00:00: SUBCUTANEO [facility]ospita unit/mL 00 USLY AT l injection BEDTIME. (vial) VIAL EXPIRES 28 DAYS AFTER FIRST USE. [facility] 2021-0 Yes Q.25D 4 (four) Met hodi Insulin 4-[address] Syringe 1 00:00: day. [facility]ospita mL 30 gauge 00 l x 5/16 syringe HumaLOG 0 Yes INJECT 5 [facility] U-100 4-[address] Insulin 100 00:00: SUBCUTANEO [facility]ospita unit/mL 00 USLY l subcutaneou BEFORE s vial MEALS. VIAL EXPIRES 28 DAYS AFTER FIRST USE. Lantus Yes INJECT 15 [facility] U-100 4-[address] Insulin 100 00:00: SUBCUTANEO [facility]ospita unit/mL 00 USLY AT l injection BEDTIME. (vial) VIAL EXPIRES 28 DAYS AFTER FIRST USE. [facility] 2021-0 Yes Q.25D 4 (four) Met [facility]odi Insulin 4-[address] Syringe 1 00:00: day. [facility]ospita mL 30 gauge 00 l x 5/16 syringe [facility] 2021-0 202- No Q.25D 4 (four) Me thodi Insulin 4-19 01-[address] Syringe 1 00:00: 00:00 day. [facility]ospita mL 30 gauge 00 :00 l x 5/16 syringe [facility] 2022- No Q.25D 4 (four) Me [facility]odi Insulin 08-07-[address] Syringe 1 00:00: 00:00 day. [facility]ospita mL 30 gauge 00 :00 l x 5/16 syringe [facility] 2022- No Q.25D 4 (four) [facility] Insulin 08-07-[address] Syringe 1 00:00: 00:00 day. [facility]ospita mL 30 gauge 00 :00 l x 5/16 syringe HumaLOG 2021- No INJECT 5 Metho di U-100 4-19 11-[address] Insulin 100 00:00: 00:00 SUBCUTANEO [facility]ospita unit/mL 00 :00 USLY l subcutaneou BEFORE s vial MEALS. VIAL EXPIRES 28 DAYS AFTER FIRST USE. Lantus 2021- No INJECT 15 [facility] di U-100 4-19 11-[address] Insulin 100 00:00: 00:00 SUBCUTANEO [facility]ospita unit/mL 00 :00 USLY AT l injection BEDTIME. (vial) VIAL EXPIRES 28 DAYS AFTER FIRST USE. HumaLOG 2021- No INJECT 5 [facility] di U-100 4-19 11-[address] Insulin 100 00:00: 00:00 SUBCUTANEO [facility]ospita unit/mL 00 :00 USLY l subcutaneou BEFORE s vial MEALS. VIAL EXPIRES 28 DAYS AFTER FIRST USE. Lantus 2021- No INJECT 15 [facility] di U-100 4-19 11-[address] Insulin 100 00:00: 00:00 SUBCUTANEO Hospita unit/mL 00 :00 USLY AT l injection BEDTIME. (vial) VIAL EXPIRES 28 DAYS AFTER FIRST USE. Lantus 2021- No INJECT 15 [facility] di U-100 4-19 11-[address] Insulin 100 00:00: 00:00 SUBCUTANEO Hospita unit/mL 00 :00 USLY AT l injection BEDTIME. (vial) VIAL EXPIRES 28 DAYS AFTER FIRST USE. HumaLOG 2021- No INJECT 5 Metho di U-100 4-19 11-[address] Insulin 100 00:00: 00:00 SUBCUTANEO Hospita unit/mL 00 :00 USLY l subcutaneou BEFORE s vial MEALS. VIAL EXPIRES 28 DAYS AFTER FIRST USE. atorvastati Yes Take by Met opal n (LIPITOR) 3-[address] 20 mg 00:00: Hospita tablet 00 l atorvastati Yes Take by Met joseph n (LIPITOR) 3-[address] 20 mg 00:00: Hospita tablet 00 l Atorvastati No 1{Table Atorvastat 2.16.84 n Calcium 06-29 t} in Calcium 0.1. 113 20 MG Oral 00:00: 20 MG Oral 8 83.4.2 Tablet 00 Tablet; 1 (one) Tablet qhs for 0 days Quantity: 90 {Tablet}Re fills: 0Ordered: 2[facility] t: 2 Lantus 100 No 10{unit Lantus 100 2.16.84 UNIT/ML 06-29 s} UNIT/ML 0.1.113 Subcutaneou 00:00: Subcutaneo 883.4.2 s Solution 00 us Solution; 10 units qhs. for 0 days Quantity: 10 {Millilite r}Refills: 0[facility]dered: [facility] t: 2 True Metrix No 1{Each} True Please 2 .16.84 Blood 06-29 Metrix substitut 0.1.113 Glucose 00:00: Blood e prn. 883.4.2 Test In 00 Glucose Vitro Strip Test In Vitro Strip; 1 (one) Each bid for 0 days Quantity: 60 {Each}Refi lls: 5[facility] t: 2Comments: Please substitute prn. atorvastati 2021- No Take by Me dodson n (LIPITOR) 3-11 11-[address] 20 mg 00:00: 00:00 Hospita tablet 00 :00 l atorvastati 2021- No Take by Me dodson n (LIPITOR) 06-[address] 20 mg 00:00: 00:00 Hospita tablet 00 :00 l atorvastati 2021- No Take by Me dodson n (LIPITOR) 06-[address] 20 mg 00:00: 00:00 Hospita tablet 00 :00 l metFORMIN 2020-04- No Medication 500mg Q.5D Take 1 [facility] (GLUCOPHAGE 005-03 refill tablet by built[facility] ) 500 mg 00:00: 23:59 mouth 2 tablet 00 :00 times daily (with meals) for 90 days. metFORMIN 2020-04- No Medication 500mg Q.5D Take 1 [facility] (GLUCOPHAGE 0-05-03 refill tablet by built[facility] ) 500 mg 00:00: 23:59 mouth 2 tablet 00 :00 times daily (with meals) for 90 days. cephalexin 2020- No 500mg [id number] Take 1 [facility] (KEFLEX) 01-02 [id number] capsule s t 500 MG 00:00: 04:59 3D (500 mg Hospita capsule 00 :00 total) by l mouth 3 (three) times a day for 7 days. cephalexin 2020- No 500mg Q.[id number] Take 1 [facility] (KEFLEX) 01-02 [id number] capsule s t 500 MG 00:00: 04:59 3D (500 mg Hospita capsule 00 :00 total) by l mouth 3 (three) times a day for 7 days. Cyclobenzap 2015-04 Yes 10 mg = 1 M emoria rine 0-27 tab, PO, l hydrochlori 21:52: BID, PRN He rmann de 10 MG 00 for spasm, Oral Tablet X 7 day, # [Flexeril] 14 tab, 0 Refill(s) Motrin 800 2015-04 Yes 800 mg = 1 M emoria mg oral 0-27 tab, PO, l tablet 21:52: Q8H, PRN [place] 00 Pain, Take with food, X 10 day, # 30 tab, 0 Refill(s) Flexeril 2015-04 No Notes: Memoria 0-27 (Same As: l 20:33: Flexeril) [place] 00 Motrin 2015-04 No Notes: [facility]oria 0-27 (Same as: l 20:33: Motrin) "Do Not Crush" Give with food. 24 HR No Notes: Memoria Metformin 15 (Same as: l hydrochlori 14:00: Glucophage [place] de 500 MG 00 XR) "Do Extended Not Crush" Release Tablet Azithromyci No Notes: [place] betty n -15 Take 1 l 14:00: hour [place] 00 before or 2 hours after meals. (Same As: Zithromax) Prednisone No Notes: Memor ia 9-15 Take with l 14:00: food. 24 HR Yes 1,000 mg = Memori a Metformin 01-03 2 tab, PO, l hydrochlori 00:46: BID, # 120 [place] de 500 MG 10 tab, 0 Extended Refill(s), Release Pharmacy: [facility] [place] [id number] 120 ACTUAT Yes 2 puff, [place] betty Albuterol 15 INHALATION l 0.1 00:46: , QID, # 1 [place] MG/ACTUAT / 00 ea, 0 Ipratropium Refill(s), [place] [facility]: 0.02 [place] [id number] MG/ACTUAT [facility] Metered Dose Inhaler [Combivent 20/100] predniSONE Yes 20 mg = 1 Me moria 20 mg oral -15 tab, PO, l tablet 00:46: Daily, X 3 Keesha nn 00 day, # 3 tab, 0 Refill(s), Pharmacy: [place] [id number] [facility] Insulin No 60 units) [place] betty regular 01-02 WASTE: F/P l 21:18: - Black; E [place] - [facility] Trash Bin Stable for 28 days at room temperatur e Expires in days from ____Date Glucagon No 1 mg, Memoria 01-02 Route: IM, l 21:18: Drug form: PDR/INJ, PRN, Dosing Weight 88.21, kg, PRN Blood Glucose Results, Start date: 01/03/16 16:18:00 CDT, Duration: 30 day, Stop date: 02/02/16 16:17:00 CDT Dextrose No 12.5 gm, Memor ia 50% Syringe 01-02 25 mL, l 21:18: Route: [place] 00 IVP, Drug Form: INJ, Dosing Weight 88.21, kg, PRN, PRN Blood Glucose Results, Start date: 01/03/16 16:18:00 CDT, Duration: 30 day, Stop date: 02/02/16 16:17:00 CDT Albuterol No Notes: Memori a 0.833 MG/ML 01-02 (Same as: l / 19:00: Duoneb) [place] Ipratropium 00 [place] 0.167 MG/ML Inhalant Solution Enoxaparin No Notes: Memor ia 01-02 (Same as: l 14:00: Lovenox) [place] 00 Ceftriaxone No Notes: [place] betty 14 (Same As: l 14:00: Rocephin). [place] 00 Use with 100 mL NS and infuse over 30 min MEDICATION WASTE Product Size: 1000 mg Product Wasted: ___ mg Sodium No 25 mL, Memoria Chloride 01-02 Route: IV, l 0.9% IV 13:53: Start [place] 00 date: 01/03/16 8:53:00 CDT, Duration: 30 day, Stop date: 02/02/16 8:52:00 CDT, PRN Line Flush BD Normal No Notes: Memori a Saline -14 (Same as: l Flush 13:53: BD [place] 00 Posiflush) BD Normal No Notes: Memori a Saline -14 (Same as: l Flush 13:52: BD [place] 00 Posiflush) Albuterol No Notes: SEE Me moria 0.83 MG/ML -14 RT l Inhalant 13:40: DOCUMENTAT Her mckeon Solution 00 ION (Same as: Proventil) Azithromyci No Notes: [place] betty n -14 Take 1 l 13:40: hour [place] 00 before or 2 hours after meals. (Same As: Zithromax) methylPREDN No Notes: [place] betty ISolone 9-14 (Same l SODium 08:01: as:Solu-ME Keesha nn SUCCinate 00 DROL, A-Methapre d) Saline No Notes: Memoria Flush 0.9% -14 (Same as: l 08:01: BD [place] Posiflush) 200 ACTUAT No Notes: Memor ia Albuterol 8-30 (albuterol l 0.09 20:00: 90 [place] MG/ACTUAT 00 microgram/ Metered inh 6.7gm Dose AER) Inhaler WASTE: Aerosol - Return to Pharmacy (Same as: Proventil HFA) clindamycin Yes 450 mg, Mem oria 150 mg oral 8-30 PO, Q8H, X l capsule 19:05: 7 day, # Larry n 00 61 cap, 0 Refill(s) 24 HR Yes 1,000 mg = Memori a Metformin 8-30 2 tab, PO, l hydrochlori 19:05: BID, # 120 [place] de 500 MG 00 tab, 0 Extended Refill(s) Release Tablet Clindamycin No Notes: [place] betty 8-30 (Same As: l 19:03: Cleocin) Tylenol No Notes: Do Memor ia 8-30 not exceed l 17:51: 4 gm/day. [place] 00 (Same as: Tylenol) Insulin No 60 units) [place] betty regular 8-30 WASTE: F/P l 13:02: - Black; E - [facility] Trash Bin Stable for 28 days at room temperatur e Expires in days from ____Date Dextrose No 25 gm, 50 [place] betty 50% Syringe 8-30 mL, Route: l 13:02: IVP, Drug Form: INJ, Dosing Weight 78.7, kg, PRN, PRN Blood Glucose Results, Start date: 12/19/15 8:02:00 CDT, Duration: 30 day, Stop date: 01/18/16 8:01:00 CDT Glucagon No 1 mg, Memoria 830 Route: IM, l 13:02: Drug form: [place] 00 PDR/INJ, PRN, Dosing Weight 78.7, kg, PRN Blood Glucose Results, Start date: 12/19/15 8:02:00 CDT, Duration: 30 day, Stop date: 01/18/16 8:01:00 CDT Ondansetron No Notes: [place] betty 12-18 (Same as: l 13:02: Zofran) MEDICATION WASTE Product Size: 4 mg Product Wasted: ___ mg Docusate No Notes: Memoria 12-18 (Same as: l 13:02: Colace) (Do Not Crush) Metformin No 500 mg, Memor ia 12-18 PO, BID, 0 l 12:56: Refill(s) Clindamycin No 900 mg, Mem oria 12-18 Route: l 11:10: IVPB, ONCE, Dosing Weight 78.7, kg, Priority: STAT, Start date: 12/19/15 6:10:00 CDT, Stop date: 12/19/15 6:10:00 CDT Acetaminoph No Notes: [place] betty en 325 MG / 12-18 (Same as: l Hydrocodone 06:19: [place] Keesha nn Bitartrate 00 325/5) Do 5 MG Oral not exceed Tablet 4gm/day of [[place] acetaminop 5/325] hen. Insulin No Notes: Memoria regular 12-12 (Same as: l 05:07: Humulin R and NovoLIN R) WASTE: F/P - Black; E - [facility] (Do not shake) Ativan No 2 mg, Memoria 12-12 Route: PO, l 04:14: Drug form: [place] 00 TAB, ONCE, Dosing Weight 93.182, kg, Priority: STAT, Start date: 12/12/15 23:14:00 CDT, Stop date: 12/12/15 23:14:00 CDT metFORMIN 2012-04 Yes 1000mg Take 1,[address] [facility] (GLUCOPHAGE 2-[facility] by [facility] ) 1000 MG 22:30: mouth 2 Medic al tablet 26 (two) Center times daily with breakfast and dinner. metFORMIN 2012-04 Yes 1000mg Take 1,[address] [facility] [address] (GL[facility]HAGE 2[facility] ) 1000 MG 22:30: mouth 2 Medic al tablet 26 (two) Center times daily with breakfast and dinner. metFORMIN 2012-04 Yes 1000mg Take 1,[address] [facility] [address] (GLUCOPHAGE 2[facility] ) 1000 MG 22:30: mouth 2 Medic al tablet 26 (two) Center times daily with breakfast and dinner. metFORMIN 2012-04 Yes 1000mg Take 1,[address] [facility] [address] (GLUCOPHAGE 2[facility] ) 1000 MG 22:30: mouth 2 Medic al tablet 26 (two) Center times daily with breakfast and dinner. metFORMIN 2012-04 Yes 1000mg Take 1,[address] [facility] [address] (GLUCOPHAGE 2[facility] ) 1000 MG 22:30: mouth 2 Medic al tablet 26 (two) Center times daily with breakfast and dinner. Immunizations Ordered Immunization Filled Immunization Date Status Commen ts Source Name Name Pneumococcal 2022-04-19 Completed [facility] 20-valent Conjugate 00:00:00 [facility] Vaccine FLUCELVAX QUAD 2022-04-[address] 00:00:00 [facility] Pneumococcal 2022-04-19 Completed [facility] 20-valent Conjugate 00:00:00 Hospi amber Vaccine FLUCELVAX QUAD PF 2022-04-[address] 00:00:00 [facility] Pneumococcal 2022-04-19 Completed [facility] 20-valent Conjugate 00:00:00 Hospi amber Vaccine FLUCELVAX QUAD PF 2022-04-[address] 00:00:00 [facility] pneumococcal 2016-01-04 Completed [facility] mckeon 23-valent vaccine 01:30:00 influenza virus 2016-01-04 [facility] inactivated 01:26:00 Vital Signs Vital Name Observation Time Observation Value Comments Source Systolic blood 2022-08-14 122 mm[Hg] [facility] pressure 07:31:00 [facility] Diastolic blood 2022-08-14 55 mm[Hg] Glennie o f pressure 07:31:00 [facility] Heart rate 2022-08-14 55 /min [facility] 07:31:00 [facility] Respiratory rate 2022-08-14 15 /min [facility] 07:31:00 [facility] Oxygen saturation 2022-08-14 94 /min [facility] in Arterial blood 07:31:00 [facility] Pulse oximetry [facility] Body temperature 2022-08-14 37 Jaqueline [facility] 05:10:00 [facility] Body height 2022-08-14 121.9 cm "without my [facility] 05:10:00 legs" [facility] Body weight 2022-08-14 81.647 kg [facility] 05:10:00 [facility] BMI 2022-08-14 54.93 kg/m2 [facility] 05:10:00 [facility] Systolic blood 2022-08-05 175 mm[Hg] [facility] pressure 18:25:00 [facility] Diastolic blood 2022-08-05 71 mm[Hg] [facility] o f pressure 18:25:00 [facility] Heart rate 2022-08-05 60 /min [facility] 18:24:00 [facility] Body temperature 2022-08-05 36.67 Jaqueline [facility] 18:24:00 [facility] Respiratory rate 2022-08-05 18 /min [facility] 18:24:00 [facility] Body height 2022-08-05 121.9 cm [facility] 18:24:00 [facility] Oxygen saturation 2022-08-05 100 /min [facility] of in Arterial blood 18:24:00 [facility] by Pulse oximetry Branch Systolic blood 2022-07-31 130 mm[Hg] [facility] pressure 21:05:00 [facility] Diastolic blood 2022-07-31 47 mm[Hg] [facility] f pressure 21:05:00 [facility] Heart rate 2022-07-31 61 /min [facility] 21:05:00 [facility] Body temperature 2022-07-31 36.83 Jaqueline [facility] 21:05:00 [facility] Respiratory rate 2022-07-31 16 /min [facility] 21:05:00 [facility] [facility] Oxygen saturation 2022-07-31 99 /min [facility] in Arterial blood 21:05:00 [facility] by Pulse oximetry Branch Body height 2022-07-29 121.9 cm [facility] 15:00:00 [facility] Body weight 2022-07-28 92 kg [facility] 07:00:00 [facility] BMI 2022-07-28 61.89 kg/m2 [facility] 07:00:00 [facility] Systolic blood 2022-07-19 116 mm[Hg] [facility] pressure 06:20:00 [facility] Diastolic blood 2022-07-19 82 mm[Hg] Glennie o f pressure 06:20:00 [facility] Heart rate 2022-07-19 54 /min [facility] 06:20:00 [facility] Body temperature 2022-07-19 36.5 Jaqueline [facility] 06:20:00 [facility] Respiratory rate 2022-07-19 16 /min [facility] 06:20:00 [facility] Oxygen saturation 2022-07-19 95 /min [facility] Arterial blood 06:20:00 [facility] by Pulse oximetry Lotus Body height 2022-07-19 121.9 cm [facility] 02:38:00 [facility] Body weight 2022-07-19 79.379 kg [facility] 02:38:00 [facility] BMI 2022-07-19 53.40 kg/m2 [facility] 02:38:00 [facility] Pulse 2021-06-29 77 /min Pattern: [id number] 13:17:12 Regular 3.4.2 Respiration Rate 2021-06-29 18 /min Pattern: [id number] 13:17:12 Unlabored 3.4.2 BP Systolic 2021-06-29 139 mm[Hg] Patient [id number] 8 13:17:12 Position: 3.4.2 Sitting; Cuff Location: Left Arm; Cuff Size: Standard BP Diastolic 2021-06-29 82 mm[Hg] Patient [id number] 8 13:17:12 Position: 3.4.2 Sitting; Cuff Location: Left Arm; Cuff Size: Standard Temperature 2021-06-29 97 [degF] Method: Oral [id number] 13:17:12 3.4.2 Systolic blood 2022-07-03 122 mm[Hg] [facility] pressure 17:14:00 Hospital Diastolic blood 2022-07-03 57 mm[Hg] [facility] pressure 17:14:00 Hospital Heart rate 2022-07-03 64 /min [facility] 17:14:00 Hospital Body temperature 2022-07-03 37 Jaqueline [facility] 16:20:31 Hospital Respiratory rate 2022-07-03 21 /min [facility] 16:20:31 Hospital Oxygen saturation 2022-07-03 98 /min [facility] in Arterial blood 16:20:31 Hospital by Pulse oximetry Body height 2022-06-29 170.2 cm [facility] 02:00:00 Hospital Body weight 2022-06-28 81.149 kg [facility] 12:00:00 Hospital BMI 2022-06-28 28.02 kg/m2 [facility] 12:00:00 Hospital Systolic blood 2021-12-14 140 mm[Hg] [facility] pressure 16:16:14 Hospital Diastolic blood 2021-12-14 72 mm[Hg] [facility] pressure 16:16:14 Hospital Heart rate 2021-12-14 74 /min [facility] 16:16:14 Hospital Body temperature 2021-12-14 36.22 Jaqueline [facility] 16:16:14 Hospital Respiratory rate 2021-12-14 20 /min [facility] 16:16:14 Hospital Oxygen saturation 2021-12-14 100 /min [facility] in Arterial blood 16:16:14 Hospital by Pulse oximetry Body height 2021-12-11 170.2 cm [facility] 22:35:00 Hospital Body weight 2021-12-11 88.451 kg [facility] 22:35:00 [facility] BMI 2021-12-11 30.54 kg/m2 [facility] 22:35:00 [facility] Systolic blood 2021-02-02 153 mm[Hg] [facility] pressure 16:00:00 Diastolic blood 2021-02-02 79 mm[Hg] [facility] pressure 16:00:00 Heart rate 2021-02-02 84 /min [facility] 16:00:00 Body temperature 2021-02-[address] [facility] 16:00:00 Respiratory rate 2021-02-02 18 /min [facility] 16:00:00 Oxygen saturation 2021-02-02 97 /min [facility] Arterial blood 16:00:00 by Pulse oximetry Body height 2021-02-02 177.8 cm [facility] 14:44:00 Body weight 2021-02-02 81.647 kg [facility] 14:44:00 BMI 2021-02-02 25.83 kg/m2 [facility] 14:44:00 Temperature Oral 2016-02-16 98 F [facility] josé antonio (F) 02:05:00 Respitory Rate 2016-02-16 Ronni Bach richie 02:05:00 Heart Rate 2016-02-16 [facility] Larry n 02:05:00 Systolic (mm Hg) 2016-02-16 [facility] 02:05:00 Diastolic (mm Hg) 2016-02-16 [facility] 02:05:00 Temperature Oral 2016-02-15 98.5 F [facility] (F) 20:23:00 Height 2016-02-15 170.18 cm [facility] 20:23:00 BMI Calculated 2016-02-15 [facility] 20:23:00 Weight 2016-02-15 [facility] 20:23:00 Systolic (mm Hg) 2016-02-15 [facility] 20:23:00 Diastolic (mm Hg) 2016-02-15 [facility] 20:23:00 Respitory Rate 2016-02-15 [facility] richie 20:23:00 Heart Rate 2016-02-15 [facility] 20:23:00 Heart Rate 2016-01-04 [facility] 01:00:00 Systolic (mm Hg) 2016-01-04 [facility] 01:00:00 Diastolic (mm Hg) 2016-01-04 [facility] 01:00:00 Respitory Rate 2016-01-04 [facility] richie 01:00:00 Temperature Oral 2016-01-04 97.6 F [facility] (F) 01:00:00 Systolic (mm Hg) 2016-01-03 [facility] 21:00:00 Diastolic (mm Hg) 2016-01-03 [facility] 21:00:00 Respitory Rate 2016-01-03 [facility] richie 21:00:00 Heart Rate 2016-01-03 [facility] n 21:00:00 Temperature Oral 2016-01-03 97.5 F [facility] (F) 21:00:00 Systolic (mm Hg) 2016-01-03 [facility] 17:00:00 Diastolic (mm Hg) 2016-01-03 [facility] 17:00:00 Respitory Rate 2016-01-03 [facility] richie 17:00:00 Heart Rate 2016-01-03 [facility] 17:00:00 Temperature Oral 2016-01-03 98.2 F [facility] (F) 17:00:00 BMI Calculated 2016-01-03 [facility]ie 11:12:00 Weight 2016-01-03 [facility] 11:12:00 Height 2016-01-03 170.18 cm [facility] 11:12:00 BMI Calculated 2016-01-03 [facility]ie 05:30:00 Weight 2016-01-03 [facility] 05:30:00 Height 2016-01-03 172.72 cm [facility] 05:30:00 Systolic (mm Hg) 2015-12-19 [facility] 16:24:00 Diastolic (mm Hg) 2015-12-19 [facility] 16:24:00 Systolic (mm Hg) 2015-12-19 [facility] 16:23:00 Diastolic (mm Hg) 2015-12-19 [facility] 16:23:00 Systolic (mm Hg) 2015-12-19 [facility] 16:19:00 Diastolic (mm Hg) 2015-12-19 [facility] 16:19:00 Temperature Oral 2015-12-19 97.4 F [facility] (F) 16:19:00 Heart Rate 2015-12-19 [facility] 16:19:00 Respitory Rate 2015-12-19 [facility] richie 16:19:00 Temperature Oral 2015-12-19 98 F [facility] (F) 15:17:00 Respitory Rate 2015-12-19 [facility] richie 11:54:00 Heart Rate 2015-12-19 [facility] 11:54:00 Temperature Oral 2015-12-19 98 F [facility] (F) 11:54:00 Respitory Rate 2015-12-19 [facility] richie 10:50:00 Heart Rate 2015-12-19 [facility] n 10:50:00 Respitory Rate 2015-12-19 [facility] 10:22:00 Systolic (mm Hg) 2015-12-19 [facility] 10:22:00 Diastolic (mm Hg) 2015-12-19 [facility] 10:22:00 Temperature Oral 2015-12-19 98.3 F [facility] (F) 10:22:00 Heart Rate 2015-12-19 [facility] n 10:22:00 Systolic (mm Hg) 2015-12-19 [facility] 06:15:00 Diastolic (mm Hg) 2015-12-19 [facility] 06:15:00 Heart Rate 2015-12-19 [facility] n 06:15:00 Respitory Rate 2015-12-19 [facility] richie 06:15:00 BMI Calculated 2015-12-19 [facility] richie 03:33:00 Height 2015-12-19 170.18 cm [facility] 03:33:00 Weight 2015-12-19 [facility] 03:33:00 Temperature Oral 2015-12-19 98.8 F [facility] Codey rmann (F) 03:33:00 Respitory Rate 2015-12-19 [facility] richie 03:33:00 Heart Rate 2015-12-19 [facility] 03:33:00 Systolic (mm Hg) 2015-12-19 [facility] 03:33:00 Diastolic (mm Hg) 2015-12-19 [facility] 03:33:00 Respitory Rate 2015-12-13 [facility] richie 10:42:00 Systolic (mm Hg) 2015-12-13 [facility] 10:42:00 Diastolic (mm Hg) 2015-12-13 [facility] 10:42:00 Heart Rate 2015-12-13 [facility] n 10:42:00 Systolic (mm Hg) 2015-12-13 [facility] 08:15:00 Diastolic (mm Hg) 2015-12-13 [facility] H ermann 08:15:00 Respitory Rate 2015-12-13 [facility] richie 08:15:00 Heart Rate 2015-12-13 [facility] 08:15:00 BMI Calculated 2015-12-13 [facility] richie 03:44:00 Weight 2015-12-13 [facility] n 03:44:00 Height 2015-12-13 170.18 cm [facility] 03:44:00 Systolic (mm Hg) 2015-12-13 [facility] 03:44:00 Diastolic (mm Hg) 2015-12-13 [facility] H ermann 03:44:00 Respitory Rate 2015-12-13 [facility] richie 03:44:00 Heart Rate 2015-12-13 [facility] 03:44:00 Temperature Oral 2015-12-13 98.8 F [facility] Codey rmann (F) 03:44:00 Procedures Procedure Date / Time Performing Clinician Source Performed POCT GLUCOSE (AUTOMATED) 2022-08-14 07:28:00 Les Ellsworth [facility] URINE DRUG (IMMUNOASSAY) 2022-08-14 06:10:00 Les Ellsworth [facility] SCREEN URINALYSIS 2022-08-14 06:10:00 Les Ellsworth [facility] BASIC METABOLIC PANEL 2022-08-14 05:43:00 Les Ellsworth [facility] (NA, K, CL, CO2, GLUCOSE, Medica l Branch BUN, CREATININE, CA) CBC WITH DIFF 2022-08-14 05:43:00 Les Ellsworth [facility] LACTIC ACID WHOLE BLOOD 2022-08-14 05:43:00 Les Ellsworth [facility] CONSENT/REFUSAL FOR 2022-08-14 05:01:57 Doctor Unassigned, No Un [facility] DIAGNOSIS AND TREATMENT [facility] DNR 2022-08-07 05:01:00 Doctor Unassigned, No [facility] Name [facility] POCT GLUCOSE (AUTOMATED) 2022-07-31 22:26:00 [facility] POCT GLUCOSE (AUTOMATED) 2022-07-31 17:13:00 [facility] POCT GLUCOSE (AUTOMATED) 2022-07-31 01:46:00 [facility] POCT GLUCOSE (AUTOMATED) 2022-07-30 23:16:00 [facility] POCT GLUCOSE (AUTOMATED) 2022-07-30 18:42:00 [facility] POCT GLUCOSE (AUTOMATED) 2022-07-30 14:18:00 [facility] MAGNESIUM 2022-07-30 10:58:00 Kelsey [facility] BASIC METABOLIC PANEL 2022-07-30 10:58:00 Mihai Cole [facility] (NA, K, CL, CO2, GLUCOSE, Medica l Branch BUN, CREATININE, CA) CBC WITH DIFF 2022-07-30 10:58:00 Kelsey [facility] POCT GLUCOSE (AUTOMATED) 2022-07-30 01:36:00 MayoMalik [facility] POCT GLUCOSE (AUTOMATED) 2022-07-29 22:43:00 [facility] POCT GLUCOSE (AUTOMATED) 2022-07-29 18:35:00 Malik [facility] IRON PANEL 2022-07-29 17:06:00 Kelsey [facility] CT ANGIOGRAM LOWER 2022-07-29 16:36:24 Yordy Thornton [facility] EXTREMITY LEFT W CONTRAST Medica l Branch ACTIVATED PARTIAL 2022-07-29 13:53:00 Yordy Thornton [facility] POCT GLUCOSE (AUTOMATED) 2022-07-29 13:45:00 Malik [facility] MAGNESIUM 2022-07-29 [facility] 2022-07-29 10:36:00 Kelsey [facility] HEPATIC FUNCTION PANEL 2022-07-29 10:36:00 Slim [facility] ([id number]) (ALB,T.PRO,BILI Medical Branch T,BU/BC,ALT,AST,ALK PHOS) BASIC METABOLIC PANEL 2022-07-29 10:36:00 Slim [facility] (NA, K, CL, CO2, GLUCOSE, Medica l Branch BUN, CREATININE, CA) CBC WITH DIFF 2022-07-29 10:36:00 Slim [facility] ACTIVATED PARTIAL 2022-07-29 07:13:00 Yordy Thornton [facility] URINALYSIS 2022-07-29 01:44:00 Darius [facility] CREATININE, URINE RANDOM 2022-07-29 01:44:00 Richard Mccoy [facility] UREA NITROGEN, URINE 2022-07-29 01:44:00 Darius Richard [facility] SODIUM, URINE RANDOM 2022-07-29 01:44:00 Richard Mccoy [facility] POCT GLUCOSE (AUTOMATED) 2022-07-29 01:17:00 Malik Mayo [facility] POCT GLUCOSE (AUTOMATED) 2022-07-28 21:09:00 Brennan Love [facility] BASIC METABOLIC PANEL 2022-07-28 19:01:00 [facility] (NA, K, CL, CO2, GLUCOSE, Medica l Branch BUN, CREATININE, CA) ACTIVATED PARTIAL 2022-07-28 19:01:00 Yordy Thornton [facility] POCT GLUCOSE (AUTOMATED) 2022-07-28 17:12:00 Brennan Love [facility] BASIC METABOLIC PANEL 2022-07-28 14:28:00 [facility] (NA, K, CL, CO2, GLUCOSE, Medica l Branch BUN, CREATININE, CA) ACTIVATED PARTIAL 2022-07-28 14:28:00 Yordy Thornton [facility] POCT GLUCOSE (AUTOMATED) 2022-07-28 12:52:00 Brennan Love [facility] HB ECG ROUTINE & RHYTHM 2022-07-28 10:09:24 Scooter [facility] CREATINE KINASE 2022-07-28 08:02:00 Yordy Thornton [facility] C-REACTIVE PROTEIN 2022-07-28 08:02:00 Yordy Thornton [facility] COMP. METABOLIC PANEL 2022-07-28 08:02:[address] [facility] ([id number]) [facility] VANCOMYCIN RANDOM LEVEL 2022-07-28 08:02:00 Yordy Thornton [facility] SEDIMENTATION RATE 2022-07-28 08:02:00 Yordy Thornton [facility] CBC WITH DIFF 2022-07-28 08:02:00 Yordy Thornton [facility] GLYCOSYLATED HEMOGLOBIN 2022-07-28 08:02:[address] [facility] (A1C) [facility] PROTHROMBIN TIME / INR 2022-07-28 08:02:00 Yordy Thornton [facility] ACTIVATED PARTIAL 2022-07-28 08:02:00 Yordy Thornton [facility] THRLAS [facility] MRSA / MSSA SCREEN BY 2022-07-28 08:02:[address] [facility] PO[facility] GLUCOSE (AUTOMATED) 2022-07-28 08:01:00 Brennan Love [facility] COMP. METABOLIC PANEL 2022-07-19 02:58:00 Adolfo Hurley [facility] ([id number]) [facility] CBC WITH DIFF 2022-07-19 02:58:00 Adolfo Hurley [facility] NOTICE OF PRIVACY 2022-07-19 02:27:02 Doctor Unassigned, No [facility] PRACTICES Name [facility] CONSENT/REFUSAL FOR 2022-07-19 02:25:51 [facility] Name [facility] POC GLUCOSE 2022-07-03 16:21:00 Naif Cartagena [facility] POC GLUCOSE 2022-07-03 12:18:00 Naif Cartagena [facility] POC GLUCOSE 2022-07-03 01:29:00 Naif Cartagena [facility] POC GLUCOSE 2022-07-02 21:46:00 Naif Cartagena [facility] POC GLUCOSE 2022-07-02 16:16:00 Naif Cartagena [facility] POC GLUCOSE 2022-07-02 12:16:00 Naif Cartagena [facility] BASIC METABOLIC PANEL 2022-07-02 10:11:00 Dayna Lutz [facility] ESTIMATED GFR 2022-07-02 10:11:00 [facility]SE 2022-07-02 01:23:00 Francesca Stevens [facility] POC GLUCOSE 2022-07-01 21:46:00 Francesca Stevens [facility] XR CHEST 1 VW PORTABLE 2022-07-01 20:15:43 [facility] 2022-07-01 20:09:[address] [facility] POC GLUCOSE 2022-07-01 16:17:00 Francesca Stevens [facility] CARBAPENEMASE GENES 2022-07-01 16:15:00 [facility] 2022-07-01 12:23:00 Francesca Stevens [facility] VANCOMYCIN LEVEL, RANDOM 2022-07-01 11:14:[address] [facility] POC GLUCOSE 2022-07-01 01:24:00 Francesca Stevens [facility] POC GLUCOSE 2022-06-30 22:08:00 Francesca Stevens [facility] POC GLUCOSE 2022-06-30 16:12:00 Francesca Stevens [facility] CARBAPENEMASE GENES 2022-06-30 15:00:00 Francesca Stevens [facility] POC GLUCOSE 2022-06-30 12:23:00 Francesca Stevens [facility] BASIC METABOLIC PANEL 2022-06-30 11:31:00 Francesca Stevens [facility] CBC WITH PLATELET AND 2022-06-30 11:31:00 Francesca Stevens [facility] DIFFERENTIAL ESTIMATED GFR 2022-06-30 11:31:00 Francesca Stevens [facility] POC GLUCOSE 2022-06-30 01:47:00 Francesca Stevens [facility] POC GLUCOSE 2022-06-29 22:47:00 Francesca Stevens [facility] POC GLUCOSE 2022-06-29 17:19:00 Francesca Stevens [facility] POC GLUCOSE 2022-06-29 13:13:00 Francesca Stevens [facility] POC GLUCOSE 2022-06-29 02:41:00 Francesca Stevens [facility] POC GLUCOSE 2022-06-28 22:40:00 Francesca Stevens [facility] POC GLUCOSE 2022-06-28 17:47:00 Francesca Stevens [facility] POC GLUCOSE 2022-06-28 13:30:00 Francesca Stevens [facility] BASIC METABOLIC PANEL 2022-06-28 12:11:00 Francesca Stevens [facility] ESTIMATED GFR 2022-06-28 12:11:00 Francesca Stevens [facility] POC GLUCOSE 2022-06-28 02:28:00 Younis, Francesca [facility] POC GLUCOSE 2022-06-27 22:12:00 Younis, Francesca [facility] POC GLUCOSE 2022-06-27 17:26:00 Younis, Francesca [facility] POC GLUCOSE 2022-06-27 13:29:00 Younis, Francesca [facility] POC GLUCOSE 2022-06-27 02:09:00 Younis, Francesca [facility] POC GLUCOSE 2022-06-26 23:37:00 YounisFrancesca Ho spital FUNGUS CULTURE 2022-06-26 23:17:00 CassidykoDavin Ho spital AFB CULTURE 2022-06-26 23:17:00 Davin Walker spital GRAM STAIN 2022-06-26 23:17:00 Aaron, Davin Faulkner Ho spital AFB STAIN 2022-06-26 23:17:00 Aaron, Davin Faulkner [facility] [employer] CULTURE 2022-06-26 23:09:00 Nurko, Davin Faulkner [facility] FUNGUS SMEAR 2022-06-26 23:09:00 Aaron, Davin Faulkner spital [employer] STAIN 2022-06-26 23:09:00 Cassidyko, Davin Faulkner spital FUNGUS CULTURE 2022-06-26 23:09:00 Rocky Walkero [facility] AL AN ELECTIVE 2022-06-26 22:52:00 Jonathan Danielle [facility] SUPRAGLOTTIC AIRWAY DEBRIDEMENT, LOWER 2022-06-26 22:30:00 [facility] EX[facility]REM[facility] ANAEROBIC CULTURE 2022-06-26 22:17:00 Cassidy, [facility] AEROBIC CULTURE 2022-06-26 22:17:00 Davin Walker spital TISSUE CULTURE 2022-06-26 22:09:00 Aaron [facility] spital ANAEROBIC CULTURE 2022-06-26 22:09:[address] [facility] POC GLUCOSE 2022-06-26 21:46:00 Francesca Stevens [facility] sp[facility] POC GLUCOSE 2022-06-26 18:45:00 Francesca Stevens spital VANCOMYCIN LEVEL, RANDOM 2022-06-26 15:33:00 Brian Powell [facility] POC GLUCOSE 2022-06-26 14:15:00 Francesca Stevens spital CBC WITH PLATELET AND 2022-06-26 11:43:00 Brian Powell [facility] DIFFERENTIAL BASIC METABOLIC PANEL 2022-06-26 11:43:00 Brian Powell [facility] MAGNESIUM LEVEL 2022-06-26 11:43:00 [facility] PROTHROMBIN TIME WITH INR 2022-06-26 11:43:00 Louisa Escobar [facility] ESTIMATED GFR 2022-06-26 11:43:00 Brian Powell [facility] POC GLUCOSE 2022-06-26 02:46:00 Francesca Stevens spital LACTIC ACID LEVEL, SEPSIS 2022-06-26 02:02:00 Brian Powell [facility] - NOW AND REPEAT 2X EVERY 3 HOURS POC GLUCOSE 2022-06-25 22:12:00 Francesca Stevens spital LACTIC ACID LEVEL, SEPSIS 2022-06-25 22:06:00 Brian Powell [facility] - NOW AND REPEAT 2X EVERY 3 HOURS ECG 12-LEAD 2022-06-25 19:43:10 Brian Powell [facility] INFLUENZA ANTIGEN TEST, 2022-06-25 19:18:00 Brian Powell [facility] REFLEX NEGATIVE TO RPP RESPIRATORY PATHOGEN 2022-06-25 19:18:00 [facility] PANEL WITH COVID-19 RT-PCR METHICILLIN-RESISTANT 2022-06-25 19:15:00 Brian Powell [facility] STAPHYLOCOCCUS AUREUS (MRSA), LEILANI LACTIC ACID LEVEL, SEPSIS 2022-06-25 19:01:00 Brian Powell [facility] - NOW AND REPEAT 2X EVERY 3 HOURS XR CHEST 1 VW PORTABLE 2022-06-25 18:53:03 [facility] XR FEMUR 2 VW LEFT 2022-06-25 18:52:[address] [facility] BLOOD CULTURE, AEROBIC & 2022-06-25 18:05:00 [facility] ANAEROBIC BLOOD CULTURE, AEROBIC & 2022-06-25 18:00:00 [facility] ANAEROBIC CBC WITH PLATELET AND 2022-06-25 17:56:00 [facility] DIFFERENTIAL COMPREHENSIVE METABOLIC 2022-06-25 17:56:00 [facility] PANEL PROTHROMBIN TIME WITH INR 2022-06-25 17:56:00 [facility] ESTIMATED GFR 2022-06-25 17:56:00 [facility] MAGNESIUM LEVEL 2022-06-25 17:56:00 [facility] POC GLUCOSE 2022-06-25 17:06:00 Francesca Stevens [facility] spital POC GLUCOSE 2022-05-14 17:15:00 [facility] VENIPUNC NEED PHYS 2022-05-14 16:30:00 Padmini Zechariah [facility] SKILL,DX OR RX POC GLUCOSE 2022-05-14 13:17:00 [facility] CBC WITH PLATELET AND 2022-05-14 11:43:00 [facility] DIFFERENTIAL BASIC METABOLIC PANEL 2022-05-14 11:43:00 [facility] ESTIMATED GFR 2022-05-14 11:43:00 [facility] POC GLUCOSE 2022-05-14 02:36:00 [facility]SE 2022-05-13 22:14:00 [facility] POC GLUCOSE 2022-05-13 17:21:00 [facility] POC GLUCOSE 2022-05-13 13:25:00 [facility] CBC WITH PLATELET AND 2022-05-13 11:23:00 Harinder [facility] DIFFERENTIAL BASIC METABOLIC PANEL 2022-05-13 11:23:00 Harinder [facility] ESTIMATED GFR 2022-05-13 11:23:00 Harinder, [facility] POC GLUCOSE 2022-05-13 02:26:00 Harinder, [facility] POC GLUCOSE 2022 22:54:00 Harinder, [facility] POC GLUCOSE 2022 17:23:00 Harinder, [facility] POC GLUCOSE 2022 13:33:00 Harinder, [facility] CBC WITH PLATELET AND 2022 10:15:00 Harinder [facility] DIFFERENTIAL BASIC METABOLIC PANEL 2022 10:15:00 Harinder [facility] ESTIMATED GFR 2022 10:15:00 Harinder [facility] POC GLUCOSE 2022 03:36:00 Harinder, [facility] POC GLUCOSE 2022-05-11 22:17:00 [facility] BLOOD CULTURE, AEROBIC & 2022-05-11 21:45:00 Marty [facility] ANAEROBIC BLOOD CULTURE, AEROBIC & 2022-05-11 21:28:00 [facility] ANAEROBIC POC GLUCOSE 2022-05-11 17:11:00 Harinder, [facility] POC GLUCOSE 2022-05-11 13:14:00 Harinder, [facility] CBC WITH PLATELET AND 2022-05-11 10:35:00 Harinder [facility] DIFFERENTIAL BASIC METABOLIC PANEL 2022-05-11 10:35:00 Harinder, [facility] ESTIMATED GFR 2022-05-11 10:35:00 Harinder, [facility] POC GLUCOSE 2022-05-11 02:33:00 Harinder, [facility] POC GLUCOSE 2022-05-10 22:49:00 [facility] BLOOD CULTURE, AEROBIC & 2022-05-10 22:13:00 Mi Cruz Juany [facility] ANAEROBIC HC NERVE BLOCK INJ 2022-05-10 19:31:21 [facility] FEMORAL SINGLE W IMG GUID HC ANESTH SCIATIC NERVE 2022-05-10 19:23:41 [facility] 2022-05-10 18:34:00 Harinder [facility] SURGICAL PATHOLOGY 2022-05-10 18:13:00 [facility] REQUEST AL AN ELECTIVE 2022-05-10 17:24:00 Mari Gamboa [facility] SUPRAGLOTTIC AIRWAY AMPUTATION, BELOW KNEE 2022-05-10 16:57:00 Aaron [facility] POC GLUCOSE 2022-05-10 15:58:00 [facility] TTE COMPLETE, WO 2022-05-10 14:38:42 Nancy [facility] CONTRAST, W DOPPLER ([id number]) POC GLUCOSE 2022-05-10 13:14:00 [facility] CBC WITH PLATELET AND 2022-05-10 12:19:00 Barrett [facility] DIFFERENTIAL BASIC METABOLIC PANEL 2022-05-10 12:19:00 Harinder [facility] PARTIAL THROMBOPLASTIN 2022-05-10 12:19:00 ShawnLouisa perez [facility] TIME (PTT) PROTHROMBIN TIME WITH INR 2022-05-10 12:19:00 ShawnLouisa perez [facility] ESTIMATED GFR 2022-05-10 12:19:00 [facility] POC GLUCOSE 2022-05-10 03:02:00 [facility] POC GLUCOSE 2022-05-09 22:30:00 [facility] POC GLUCOSE 2022-05-09 18:05:00 [facility] US ANKLE BRACHIAL INDEX 2022-05-09 17:33:01 Gail [facility] Gajojaimea VANCOMYCIN LEVEL, RANDOM 2022-05-09 16:42:00 Kenneth Farr [facility] POC GLUCOSE 2022-05-09 13:14:00 Ron Pizano [facility] CBC WITH PLATELET AND 2022-05-09 11:25:[address] [facility] DIFFERENTIAL [facility] MAGNESIUM LEVEL 2022-05-09 11:25:00 Gail West ospital [facility] COMPREHENSIVE METABOLIC 2022-05-09 11:25:00 Gail [facility] PANEL Njjonera ESTIMATED GFR 2022-05-09 11:25:00 Gail Wets [facility] MANUAL DIFFERENTIAL 2022-05-09 11:25:00 [facility] 2022-05-09 02:55:00 Noman Brewer Ho ramona MRI FOOT WO CONTRAST LEFT 2022-05-09 02:37:17 [facility] POC GLUCOSE 2022-05-08 22:46:00 Noman Brewer spital COVID-19 QUALITATIVE 2022-05-08 22:35:00 [facility] RT-PCR Scooter XR FOOT 3+ VW LEFT 2022-05-08 19:44:29 [facility] Scooter BLOOD CULTURE, AEROBIC & 2022-05-08 19:34:00 Kenneth Farr [facility] ANAEROBIC Scooter CBC WITH PLATELET AND 2022-05-08 19:34:00 [facility] METABOLIC 2022-05-08 19:34:00 Kenneth Farr [facility] PANEL Scooter C-REACTIVE PROTEIN 2022-05-08 19:34:00 [facility] Scooter SEDIMENTATION RATE 2022-05-08 19:34:00 [facility] Scooter ESTIMATED GFR 2022-05-08 19:34:00 [facility] MANUAL DIFFERENTIAL 2022-05-08 19:34:00 [facility] POC GLUCOSE 2022-05-08 18:06:00 Kenneth Farr [facility] POC GLUCOSE 2022-04-19 22:41:00 Nadericandrew, July [facility] CV TRANSESOPHAGEAL 2022-04-19 20:35:00 Sharon Mcmillan [facility] ECHOCARDIOGRAM W Angel CARDIOVERSION ECG 12-LEAD 2022-04-19 20:33:57 Jaspreet Cannon Emil [facility] POC GLUCOSE 2022-04-19 17:28:00 Nadericalli, July [facility] POC GLUCOSE 2022-04-19 13:31:00 Nadimpalli, July [facility] CBC HEMOGRAM 2022-04-19 12:19:00 Naddawsoni, July [facility] BASIC METABOLIC PANEL 2022-04-19 12:19:00 Ricky [facility] MAGNESIUM LEVEL 2022-04-19 12:19:00 Naddawsoni, July [facility] ESTIMATED GFR 2022-04-19 12:19:00 Nadimperici, July [facility] POC GLUCOSE 2022-04-19 10:28:00 Nadimpalli, July [facility] POC GLUCOSE 2022-04-19 06:29:00 Nadimpalli, July [facility] POC GLUCOSE 2022-04-19 02:51:00 [facility] POC GLUCOSE 2022-04-18 22:27:00 Nadimpalli, July [facility] POC GLUCOSE 2022-04-18 17:02:00 Nadimpalli, July [facility] POC GLUCOSE 2022-04-18 13:25:00 Nadimpalli, July [facility] CBC HEMOGRAM 2022-04-18 12:36:00 Nadimpalli, July [facility] BASIC METABOLIC PANEL 2022-04-18 12:36:00 [facility] ESTIMATED GFR 2022-04-18 12:36:00 Nadimpalli, July [facility] POC GLUCOSE 2022-04-18 10:01:00 Nadimpalli, July [facility] POC GLUCOSE 2022-04-18 07:11:00 Nadimpalli, July [facility] URINE DRUGS OF ABUSE 2022-04-18 03:32:00 Sofi [facility] S[facility] POC GLUCOSE 2022-04-18 02:35:00 Nadimpalli, July [facility] POC GLUCOSE 2022-04-17 23:00:00 Nadimpalli, July [facility] NM MYOCARDIAL PERFUSION 2022-04-17 20:04:00 Silva [facility] REST STRESS 1 DAY CV STRESS TEST NUCLEAR 2022-04-17 20:04:[address] [facility] CARDIO POC GLUCOSE 2022-04-17 17:10:00 Nadericalli, July [facility] POC GLUCOSE 2022-04-17 13:48:00 Nadimpalli, July [facility] BASIC METABOLIC PANEL 2022-04-17 11:17:00 Ricky [facility] CBC HEMOGRAM 2022-04-17 11:17:00 Nadimpalli, July [facility] MAGNESIUM LEVEL 2022-04-17 11:17:00 Nadimpalli, July [facility] ESTIMATED GFR 2022-04-17 11:17:00 Nadimpalli, July [facility] POC GLUCOSE 2022-04-17 10:13:00 Nadimpalli, July [facility] POC GLUCOSE 2022-04-17 06:09:00 Nadimpalli, July [facility] POC GLUCOSE 2022-04-17 02:46:00 Nadimpalli, July [facility] POC GLUCOSE 2022-04-16 23:09:00 Nadimpalli, July [facility] POC GLUCOSE 2022-04-16 17:53:00 Nadimpalli, July [facility] POC GLUCOSE 2022-04-16 13:40:00 Nadimpalli, July [facility] POC GLUCOSE 2022-04-16 10:34:00 Nadimpalli, July [facility] CBC HEMOGRAM 2022-04-16 09:46:00 Ugoetracie [facility] BASIC METABOLIC PANEL 2022-04-16 09:46:00 [facility] PARTIAL THROMBOPLASTIN 2022-04-16 09:46:00 UgoeRenetta hodges [facility] TIME (PTT) ESTIMATED GFR 2022-04-16 09:46:00 Uriel Pastor spital POC GLUCOSE 2022-04-16 06:16:00 [facility] POC GLUCOSE 2022-04-16 02:38:00 [facility] Julyrian [facility] POC GLUCOSE 2022-04-15 23:20:00 Uriel Pastor spital PARTIAL THROMBOPLASTIN 2022-04-15 20:59:[address] [facility] TIME (PTT) POC GLUCOSE 2022-04-15 17:50:00 Uriel Pastor spital PARTIAL THROMBOPLASTIN 2022-04-15 14:26:[address] TIME (PTT) POC GLUCOSE 2022-04-15 13:50:00 Uriel Pastor spital CBC HEMOGRAM 2022-04-15 09:50:00 Ugoe [facility] HERPES SIMPLEX VIRUS BY 2022-04-15 09:50:00 Uriel Pastor [facility] PCR HIV 1/2 ANTIGEN/ANTIBODY, 2022-04-15 09:50:00 Uriel Pastor [facility] FOURTH GENERATION, WITH REFLEXES BASIC METABOLIC PANEL 2022-04-15 09:50:00 [facility] ESTIMATED GFR 2022-04-15 09:50:00 Uriel Pastor spital POC GLUCOSE 2022-04-15 09:49:00 Uriel Pastor Ho spital POC GLUCOSE 2022-04-15 06:33:00 Uriel Pastor Ho spital POC GLUCOSE 2022-04-15 05:30:00 Uriel Pastor spital PARTIAL THROMBOPLASTIN 2022-04-15 05:29:00 [facility] TIME (PTT) POC GLUCOSE 2022-04-15 02:07:00 Uriel Pastor spital POC GLUCOSE 2022-04-14 23:24:00 Uriel Pastor spital PARTIAL THROMBOPLASTIN 2022-04-14 22:35:00 [facility] TIME (PTT) POC GLUCOSE 2022-04-14 17:22:00 Uriel Pastor spital URINALYSIS SCREEN AND 2022-04-14 17:00:00 [facility] MICROSCOPY, WITH REFLEX TO CULTURE TTE COMPLETE, W CONTRAST, 2022-04-14 16:06:00 [facility] W DOPPLER ([id number]) PARTIAL THROMBOPLASTIN 2022-04-14 15:38:00 [facility] TIME (PTT) POC GLUCOSE 2022-04-14 13:37:00 Uriel Pastor Ho spital CBC HEMOGRAM 2022-04-14 11:19:00 [facility] BASIC METABOLIC PANEL 2022-04-14 11:19:00 [facility] Efren MAGNESIUM LEVEL 2022-04-14 11:19:00 Fahad Costello ESTIMATED GFR 2022-04-14 11:19:00 Fahad Costello POC GLUCOSE 2022-04-14 10:26:00 Fahad Costello POC GLUCOSE 2022-04-14 07:01:00 Fahad Costello HEPATIC FUNCTION PANEL 2022-04-14 06:28:00 [facility] THYROID STIMULATING 2022-04-14 06:28:00 [facility] HORMONE PARTIAL THROMBOPLASTIN 2022-04-14 06:28:00 [facility] TIME (PTT) Efren POC GLUCOSE 2022-04-14 01:54:00 Fahad Costello ospital Efren POC GLUCOSE 2022-04-14 00:05:00 Fahad Costello ospital Efren XR ABDOMEN 1 VW 2022-04-13 23:25:05 René Baird Ho spital POC GLUCOSE 2022-04-13 22:54:00 Fahad Costello ospital Efren ECG 12-LEAD 2022-04-13 21:50:51 Ugoetracie [facility] BETA HYDROXYBUTYRATE 2022-04-13 21:01:00 [facility] MAGNESIUM LEVEL 2022-04-13 21:01:00 René Baird spital ESTIMATED GFR 2022-04-13 21:01:00 René Baird spital TROPONIN T 2022-04-13 21:01:00 René Baird spital PHOSPHORUS LEVEL 2022-04-13 21:01:00 René Baird ospital BASIC METABOLIC PANEL 2022-04-13 21:01:00 René Baird [facility] POC GLUCOSE 2022-04-13 20:54:00 Fahad Costello ospital Efren ECG 12-LEAD 2022-04-13 20:37:02 Ugelisabet [facility] TROPONIN T 2022-04-13 20:16:00 [facility] POC GLU[facility]SE 2022-04-13 19:03:00 Fahad Costello ospital Efren POC GLUCOSE 2022-04-13 14:07:00 Fahad Costello ospital Efren TROPONIN T 2022-04-13 13:25:00 [facility] TROPONIN T 2022-04-13 12:11:00 [facility] 2022-04-13 12:11:00 [facility] TIME (PTT) PROTHROMBIN TIME WITH INR 2022-04-13 12:11:00 [facility] ANTI XA, UNFRACTIONATED 2022-04-13 12:11:00 Renetta Ascencio [facility] ECG 12-LEAD 2022-04-13 11:43:39 [facility] POC GLUCOSE 2022-04-13 11:41:00 [facility] POC GLUCOSE 2022-04-13 07:07:00 [facility] COVID-19 QUALITATIVE 2022-04-13 05:26:00 [facility] RT-PCR [place] POC GLUCOSE 2022-04-13 05:13:00 [facility] POC GLUCOSE 2022-04-13 04:36:00 [facility] CT ANGIOGRAM PE CHEST 2022-04-13 01:07:30 [facility] [place] ECG 12-LEAD 2022-04-12 22:44:44 [facility] [place] XR CHEST 1 VW PORTABLE 2022-04-12 22:03:54 [facility] [place] ECG ED PRELIMINARY 2022-04-12 21:56:45 [facility] INTERPRETATION [place] AL CRITICAL CARE 2022-04-12 21:56:45 [facility] ILL/INJURED PATIENT INIT [place] 30-74 MIN CBC WITH PLATELET AND 2022-04-12 21:56:00 [facility] DIFFERENTIAL [place] COMPREHENSIVE METABOLIC 2022-04-12 21:56:00 [facility] PANEL [place] TROPONIN T 2022-04-12 21:56:00 [facility] [place] B NATRIURETIC PEPTIDE 2022-04-12 21:56:00 [facility] [place] ESTIMATED GFR 2022-04-12 21:56:00 [facility] [place] POC GLUCOSE 2022-03-14 21:43:00 Noman Brewer [facility] spital POC GLUCOSE 2022-03-14 17:02:00 Loquias, Elain [facility] POC GLUCOSE 2022-03-14 13:46:00 Loquias, Elain [facility] POC GLUCOSE 2022-03-14 03:02:00 Loquias, Elain [facility] sp[facility] POC GLUCOSE 2022-03-13 23:33:00 Loquias, Elain [facility] POC GLUCOSE 2022-03-13 18:05:00 Loquias, Elain [facility] POC GLUCOSE 2022-03-13 13:57:00 Loquias, Elain [facility] POC GLUCOSE 2022-03-13 02:06:00 Loquias, Elain [facility] POC GLUCOSE 2022-03-12 22:33:00 Loquias, Elain [facility] POC GLUCOSE 2022-03-12 21:31:00 Loquias, Elsyed [facility] LOWER EXTREMITY 2022-03-12 20:07:00 Davin Walker Ho spital ANGIOGRAM,POSSIBLE ANGIOPLASTY,POSSIBLE STENT POC GLUCOSE 2022-03-12 15:51:00 Loquias, Noman [facility] CBC WITH PLATELET AND 2022-03-12 10:36:00 Ron Pizano Met [facility] DIFFERENTIAL BASIC METABOLIC PANEL 2022-03-12 10:36:00 Ron Pizano Met [facility] PROTHROMBIN TIME WITH INR 2022-03-12 10:36:00 [facility] ESTIMATED GFR 2022-03-12 10:36:00 Ron Pizano [facility] POC GLUCOSE 2022-03-12 02:25:00 Ron Pizano [facility] USPV RADAMES EXTREMITY 2022-03-11 23:31:00 [facility] BILATERAL POC GLUCOSE 2022-03-11 23:16:00 Ron Pizano [facility] POC GLUCOSE 2022-03-11 17:42:00 Harinder [facility] POC GLUCOSE 2022-03-11 13:36:00 [facility] WITH [facility]LET AND 2022-03-11 12:48:00 Ron Pizano Met [facility] DIFFERENTIAL COMPREHENSIVE METABOLIC 2022-03-11 12:48:00 Harinder [facility] PANEL ESTIMATED GFR 2022-03-11 12:48:00 Harinder [facility] POC GLUCOSE 2022-03-11 02:16:00 Harinder [facility] METHICILLIN-RESISTANT 2022-03-11 00:23:[address] [facility] STAPHYLOCOCCUS AUREUS Atul (MRSA), LEILANI POC GLUCOSE 2022-03-10 22:58:00 Harinder, [facility] VANCOMYCIN LEVEL, RANDOM 2022-03-10 20:31:00 Bridgette Hernandez [facility] POC GLUCOSE 2022-03-10 17:46:00 Harinder, [facility] POC GLUCOSE 2022-03-10 13:57:00 Harinder, [facility] CBC WITH PLATELET AND 2022-03-10 09:15:00 Harinder [facility] DIFFERENTIAL COMPREHENSIVE METABOLIC 2022-03-10 09:15:00 Harinder [facility] PANEL MAGNESIUM LEVEL 2022-03-10 09:15:00 Harinder, [facility] ESTIMATED GFR 2022-03-10 09:15:00 Harinder, [facility] POC GLUCOSE 2022-03-10 02:19:00 Harinder, [facility] POC GLUCOSE 2022-03-09 22:28:00 Harinder, [facility] METHICILLIN-RESISTANT 2022-03-09 18:20:00 Harinder [facility] STAPHYLOCOCCUS AUREUS (MRSA), LEILANI POC GLUCOSE 2022-03-09 17:16:00 Harinder, [facility] POC GLUCOSE 2022-03-09 08:46:00 [facility] POC [facility] 2022-03-09 07:16:00 [facility] COVID-19 QUALITATIVE 2022-03-09 07:14:00 [facility] RT-PCR COMPREHENSIVE METABOLIC 2022-03-09 06:10:00 Arnulfo [facility] PANEL HEMOGLOBIN A1C 2022-03-09 06:10:00 Tonie-Edgar Castro ospital [facility] LIPID PANEL 2022-03-09 06:10:00 Tonie-Og, Edgar Faulkner ospital [employer] XR FOOT 3+ VW LEFT 2022-03-09 05:56:37 Arnulfo [facility] BETA HYDROXYBUTYRATE 2022-03-09 05:43:00 [facility] CBC WITH PLATELET AND 2022-03-09 05:35:00 [facility] DIFFERENTIAL LACTIC ACID LEVEL, SEPSIS 2022-03-09 05:35:00 Arnulfo [facility] - NOW AND REPEAT 2X EVERY 3 HOURS VENOUS BLOOD GAS 2022-03-09 05:35:00 [facility] ESTIMATED GFR 2022-03-09 05:35:00 [facility] POC GLUCOSE 2022-03-09 03:55:00 Carroll, Yvonne [facility] POC GLUCOSE 2021-12-14 16:15:00 René De Jesus osleonel Arredondo POC GLUCOSE 2021-12-14 12:10:00 René De Jesus H ospital Arnulfo POC GLUCOSE 2021-12-14 01:40:00 René De Jesus ospital Arnulfo POC GLUCOSE 2021-12-13 21:17:00 René De Jesus ospital Arnulfo POC GLUCOSE 2021-12-13 16:05:00 René De Jesus ospital Arnulfo POC GLUCOSE 2021-12-13 12:22:00 René De Jesus ospital Arnulfo POC GLUCOSE 2021-12-13 01:36:00 René De Jesus POC GLUCOSE 2021-12-12 22:00:00 René De Jesustal Arnulfo VENIPUNC NEED PHYS 2021-12-12 17:56:39 Trinh Christensen [facility] SKILL,DX OR RX POC GLUCOSE 2021-12-12 16:34:00 René De Jesus osleonel Arredondo POC GLUCOSE 2021-12-12 12:27:00 René De Jesuspital Arnulfo BASIC METABOLIC PANEL 2021-12-12 10:55:00 Neal [facility] Arnulfo CBC WITH PLATELET AND 2021-12-12 10:55:00 Neal [facility] DIFFERENTIAL Arnulfo ESTIMATED GFR 2021-12-12 10:55:00 René De Jesus [facility] LEIGH-19 ANTI-SPIKE IGG 2021-12-12 10:54:00 [facility] ANTIBODY TITER Harjinder HenaoZCOVID-19 SEROLOGY 2021-12-12 10:54:00 [facility]ILLANCE Harjinder POC GLUCOSE 2021-12-12 03:38:00 René De Jesus [facility] POC GLUCOSE 2021-12-12 01:22:00 Neal [facility] POC GLUCOSE 2021-12-11 22:32:00 Neal [facility] POC GLUCOSE 2021-12-11 17:04:00 [facility] POC GLUCOSE 2021-12-11 13:53:00 Neal [facility] POC GLUCOSE 2021-12-11 08:48:00 [facility] POC GLUCOSE 2021-12-11 07:29:00 [facility] POC GLUCOSE 2021-12-11 06:36:00 [facility] COVID-19 QUALITATIVE 2021-12-11 05:55:00 Wilberto Carbajal [facility] RT-PCR POC GLUCOSE 2021-12-11 05:34:00 Wilberto Carbajal [facility] CBC WITH PLATELET AND 2021-12-11 04:02:00 Wilberto Carbajal [facility] DIFFERENTIAL COMPREHENSIVE METABOLIC 2021-12-11 04:02:00 Wilberto Carbajal [facility] PANEL LIPASE LEVEL 2021-12-11 04:02:00 Wilberto Carbajal [facility] BETA HYDROXYBUTYRATE 2021-12-11 04:02:00 Wilberto Carbajal [facility] VENOUS BLOOD GAS 2021-12-11 04:02:00 Wilberto Carbajal [facility] ESTIMATED GFR 2021-12-11 04:02:00 Wilberto Carbajal [facility] CT ABDOMEN PELVIS WO 2021-12-11 02:47:59 Wilberto Carbajal [facility] CONTRAST URINE CULTURE 2021-12-11 02:24:00 Og Cleaning spital URINALYSIS SCREEN AND 2021-12-11 01:10:00 Wilberto Carbajal [facility] MICROSCOPY, WITH REFLEX TO CULTURE URINE CULTURE 2021-11-08 17:34:00 Thong Cartagena spital URINALYSIS SCREEN AND 2021-11-08 16:54:00 [facility] MICROSCOPY, WITH REFLEX TO CULTURE CT RENAL STONE PROTOCOL 2021-11-08 16:35:59 [facility] CBC WITH PLATELET AND 2021-11-08 16:05:00 [facility] DIFFERENTIAL BASIC METABOLIC PANEL 2021-11-08 16:05:00 [facility] LIPASE LEVEL 2021-11-08 16:05:00 [facility] HE[facility] FUNCTION PANEL 2021-11-08 16:05:00 [facility] ESTIMATED GFR 2021-11-08 16:05:00 Thong Cartagena spital POC GLUCOSE 2021-11-08 15:52:00 Thong Cartagena spital ECG ED PRELIMINARY 2021-10-11 04:49:[address] [facility] 12-LEAD 2021-10-11 03:14:36 Norberto Lanier [facility] CBC WITH PLATELET AND 2021-10-11 02:57:00 Norberto Lanier [facility] DIFFERENTIAL COMPREHENSIVE METABOLIC 2021-10-11 02:57:00 [facility] TROPONIN T 2021-10-11 02:57:00 Yannick Norberto [facility] B NATRIURETIC PEPTIDE 2021-10-11 02:57:00 Norberto Lanier [facility] PROTHROMBIN TIME WITH INR 2021-10-11 02:57:[address] [facility] PARTIAL THROMBOPLASTIN 2021-10-11 02:57:00 Norberto Lanier [facility] TIME (PTT) ESTIMATED GFR 2021-10-11 02:57:00 [facility] XR CHEST 2 VW 2021-10-11 02:05:13 [facility] DIABETIC FOOT EXAMINATION 2021-06-29 00:00:00 Virgilio Garcia [id number]. (2028F) 2 MOST RECENT DIASTOLIC 2021-06-29 00:00:00 Virgilio Garcia 2.16.8 [id number]. BLOOD PRESSURE 80-89 MM 2 HG (HTN, CKD, CAD) (DM) (3079F) MOST RECENT SYSTOLIC 2021-06-29 00:00:00 Virgilio Garcia [id number] [id number]. BLOOD PRESSURE 130-139 MM 2 HG (DM),(HTN, CKD, CAD) (3075F) NEGATIVE SCREEN FOR 2021-06-29 00:00:00 Virgilio Garcia [id number]. CLINICAL DEPRESSION, 2 FOLLOW-UP NOT REQUIRED (G8510) PATIENT IDENTIFIED A 2021-06-29 00:00:00 Virgilio Garcia [id number]. TOBACCO USER RECEIVED 2 TOBACCO CESSATION INTERVENTION (COUNSELING AND/OR PHARMACOTHERAPY) (G9906) SCREENING FOR TOBACCO USE 2021-06-29 00:00:00 Virgilio Garcia [id number]. (4004F) 2 PATIENT SCREENED FOR 2021-06-29 00:00:00 Virgilio Garcia [id number] [id number]. TOBACCO USE AND 2 IDENTIFIED A TOBACCO USER (G9902) XRAY FOOT 3 VIEWS - 2021-02-02 15:18:00 Jamin Lopez [facility] ROUTINE CBC/DIFF 2021-02-02 15:12:00 Jamin Lopez [facility] BASIC METABOLIC PANEL 2021-02-02 15:12:00 Jamin Lopez [facility] CBC 2021-02-02 15:12:00 Jamin Lopez alth URINE CULTURE 2021-01-03 04:26:00 [facility] URINALYSIS SCREEN AND 2021-01-03 04:26:00 [facility] MICROSCOPY, WITH REFLEX Richard TO CULTURE LACTIC ACID LEVEL, SEPSIS 2021-01-03 03:04:00 [facility] - NOW AND REPEAT 2X EVERY [place] 3 HOURS TROPONIN 2021-01-03 03:04:00 [facility] US DUPLEX VENOUS LOWER 2021-01-03 01:53:13 [facility] EXTREMITY RIGHT [place] ECG ED PRELIMINARY 2021-01-03 01:17:47 [facility] INTERPRETATION [place] XR TIBIA FIBULA 2 VW 2021-01-03 01:05:31 [facility] RIGHT [place] XR FOOT 3+ VW LEFT 2021-01-03 01:05:05 [facility] Richard ECG 12-LEAD 2021-01-03 00:52:38 [facility] BLOOD CULTURE, AEROBIC & 2021-01-03 00:47:00 [facility] ANAEROBIC Richard BLOOD CULTURE, AEROBIC & 2021-01-03 00:45:00 [facility] ANAEROBIC Richard HC COMPLETE BLD COUNT 2021-01-03 00:43:00 [facility] W/AUTO DIFF Richard BASIC METABOLIC PANEL 2021-01-03 00:43:00 [facility] Richard HEPATIC FUNCTION PANEL 2021-01-03 00:43:00 [facility] Richard LACTIC ACID LEVEL, SEPSIS 2021-01-03 00:43:00 [facility] - NOW AND REPEAT 2X EVERY Richard 3 HOURS LIPASE LEVEL 2021-01-03 00:43:00 [facility] Richard TROPONIN 2021-01-03 00:43:00 [facility] B NATRIURETIC PEPTIDE 2021-01-03 00:43:00 [facility] Richard ESTIMATED GFR 2021-01-03 00:43:00 [facility] Richard Amputation 2020-08-04 00:00:00 [facility] [id number] 2020-07-04 00:00:00 DAVJO.04 [facility] [id number] 2020-07-04 00:00:00 DAVJO.[email or web address] [facility] [id number] 2020-07-04 00:00:00 DAVJO.04 [facility] [id number] 2020-07-04 00:00:00 DAVJO.04 [facility] [id number] 2020-07-04 00:00:00 DAVJO.04 [facility] [id number] 2020-07-04 00:00:00 DAVJO.[email or web address] [facility] [id number] 2020-07-04 00:00:00 DAVJO.04 [facility] [id number] 2020-07-04 00:00:00 DAVJO.04 [facility] [id number] 2020-07-01 00:00:00 [facility] [place] [id number] 2020-07-01 00:00:00 [facility] [id number] 2020-07-01 00:00:00 [facility] [place] [id number] 2020-07-01 00:00:00 [facility] [place] Annual Eye Exam - FOR [facility] [id number] .[id number]. NON-DIABETICS ONLY 2 COLONOSCOPY IN ADULT [facility] 2.16.840.1. [id number]. ([id number]) 2 Patient received annual [facility] 2.16.840 .[id number]. dental check-up 2 Teeth [facility] [id number] 3.4. 2 Plan of Care Planned Activity Planned Date Details Comments Source Future Scheduled 2023-01-19 IMM Influenza Seasonal [facility] 00:00:00 (>/= 19 yrs) [code = IMM Influenza Seasonal (>/= 19 yrs)] Future Scheduled 2023-01-19 IMM Influenza Seasonal [facility] 00:00:00 (>/= 19 yrs) [code = IMM Influenza Seasonal (>/= 19 yrs)] Future Scheduled 2022-08-19 COVID-19 VACCINE (#1) [facility] 10:24:38 [code = COVID-19 VACCINE (#1)] Future Scheduled 2022-08-19 DIABETES: RETINAL EYE [facility] 10:24:38 EXAM [code = DIABETES: RETINAL EYE EXAM] Future Scheduled 2022-08-19 DIABETIC FOOT EXAM [facility] Test 10:24:38 [code = DIABETIC FOOT EXAM] Future Scheduled 2022-08-19 URINE MICROALBUMIN [facility] Test 10:24:38 [code = URINE MICROALBUMIN] Future Scheduled 2022-08-19 [facility] Test 10:24:38 (procedure) [code = 412945710] Future Scheduled 2022-08-19 [facility]CREENING [facility] Test 10:24:38 [code = COLONOSCOPY SCREENING] Future Scheduled 2022-08-19 [facility] Test 10:24:38 malignant neoplasm of lung (procedure) [code = 200079983] Future Scheduled 2022-08-19 SHINGLES VACCINES (1 [facility] 10:24:38 of 2) [code = SHINGLES VACCINES (1 of 2)] Future Scheduled 2022-08-19 INFLUENZA VACCINE [facility] 10:24:38 [code = INFLUENZA VACCINE] Future Scheduled 2022-08-19 COVID-19 VACCINE (#1) [facility] 10:24:38 [code = COVID-19 VACCINE (#1)] Future Scheduled 2022-08-19 DIABETES: RETINAL EYE [facility] 10:24:38 EXAM [code = DIABETES: RETINAL EYE EXAM] Future Scheduled 2022-08-19 DIABETIC FOOT EXAM [facility] Test 10:24:38 [code = DIABETIC FOOT EXAM] Future Scheduled 2022-08-19 URINE MICROALBUMIN [facility] Test 10:24:38 [code = URINE MICROALBUMIN] Future Scheduled 2022-08-19 [facility] C [facility] 10:24:38 (procedure) [code = 184951436] Future Scheduled 2022-08-19 [facility]CRE[facility]ING [facility] Test 10:24:38 [code = COLONOSCOPY SCREENING] Future Scheduled 2022-08-19 [facility] for [facility] Test 10:24:38 malignant neoplasm of lung (procedure) [code = 756570536] Future Scheduled 2022-08-19 SHINGLES VACCINES (1 Met [facility] Test 10:24:38 of 2) [code = SHINGLES VACCINES (1 of 2)] Future Scheduled 2022-08-19 INFLUENZA VACCINE [facility] 10:24:38 [code = INFLUENZA VACCINE] Future Scheduled 2022-08-19 COVID-19 VACCINE (#1) [facility] Test 10:24:38 [code = COVID-19 VACCINE (#1)] Future Scheduled 2022-08-19 DIABETES: RETINAL EYE [facility] Test 10:24:38 EXAM [code = DIABETES: RETINAL EYE EXAM] Future Scheduled 2022-08-[address] [facility] Test 10:24:38 [code = DIABETIC FOOT EXAM] Future Scheduled 2022-08-19 URINE MICROALBUMIN [facility] Test 10:24:38 [code = URINE MICROALBUMIN] Future Scheduled 2022-08-19 Hepatitis C screening [facility] Test 10:24:38 (procedure) [code = 613062009] Future Scheduled 2022-08-19 COLONOSCOPY SCREENING [facility] Test 10:24:38 [code = COLONOSCOPY SCREENING] Future Scheduled 2022-08-19 [facility] for [facility] Test 10:24:38 malignant neoplasm of lung (procedure) [code = 775860670] Future Scheduled 2022-08-19 SHINGLES VACCINES (1 Met [facility] Test 10:24:38 of 2) [code = SHINGLES VACCINES (1 of 2)] Future Scheduled 2022-08-19 INFLUENZA VACCINE [facility] Test 10:24:38 [code = INFLUENZA VACCINE] Future Scheduled 2022-01-19 IMM Influenza [facility]al [facility] 00:00:00 (>/= 19 yrs) [code = IMM Influenza Seasonal (>/= 19 yrs)] Future Scheduled 2022-01-19 IMM Influenza Seasonal [facility] 00:00:00 (>/= 19 yrs) [code = IMM Influenza Seasonal (>/= 19 yrs)] Future Scheduled 2021-12-17 HEPATITIS B VACCINES Met [facility] Test 10:00:08 (1 of 3 - 3-dose series) [code = HEPATITIS B VACCINES (1 of 3 - 3-dose series)] Future Scheduled 2021-12-17 COVID-19 VACCINE (#1) [facility] Test 10:00:08 [code = COVID-19 VACCINE (#1)] Future Scheduled 2021-12-17 Pneumococcal Vaccine: [facility] Test 10:00:08 Pediatrics (0 to 5 Years) and At-Risk Patients (6 to 64 Years) (1 - PCV) [code = Pneumococcal Vaccine: Pediatrics (0 to 5 Years) and At-Risk Patients (6 to 64 Years) (1 - PCV)] Future Scheduled 2021-12-17 Hepatitis C screening [facility] Test 10:00:08 (procedure) [code = 232124534] Future Scheduled 2021-12-17 COLONOSCOPY SCREENING [facility] Test 10:00:08 [code = COLONOSCOPY SCREENING] Future Scheduled 2021-12-17 SHINGLES VACCINES (1 Met [facility] Test 10:00:08 of 2) [code = SHINGLES VACCINES (1 of 2)] Future Scheduled 2021-12-17 IN[facility]ZA VACCINE [facility] 10:00:08 [code = INFLUENZA VACCINE] Future Scheduled 2021-12-17 HEPATITIS B VACCINES Met [facility] Test 10:00:08 (1 of 3 - 3-dose series) [code = HEPATITIS B VACCINES (1 of 3 - 3-dose series)] Future Scheduled 2021-12-17 COVID-19 VACCINE (#1) [facility] Test 10:00:08 [code = COVID-19 VACCINE (#1)] Future Scheduled 2021-12-17 Pneumococcal Vaccine: [facility] Test 10:00:08 Pediatrics (0 to 5 Years) and At-Risk Patients (6 to 64 Years) (1 - PCV) [code = Pneumococcal Vaccine: Pediatrics (0 to 5 Years) and At-Risk Patients (6 to 64 Years) (1 - PCV)] Future Scheduled 2021-12-17 Hepatitis C screening [facility] Test 10:00:08 (procedure) [code = 919876116] Future Scheduled 2021-12-17 COLONOSCOPY SCREENING [facility] Test 10:00:08 [code = COLONOSCOPY SCREENING] Future Scheduled 2021-12-17 SHINGLES VACCINES (1 [facility] 10:00:08 of 2) [code = SHINGLES VACCINES (1 of 2)] Future Scheduled 2021-12-17 INFLUENZA VACCINE [facility] Test 10:00:08 [code = INFLUENZA VACCINE] Diagnostic Test 2021-06-29 HEMOGLOBIN GLYCLATED Pending 14:06:03 (HGB A1C) (99648) [code = 32542] Diagnostic Test 2021-06-29 CBC & PLATELETS (AUTO) Pending 14:05:14 (13355) [code = 76532] Diagnostic Test 2021-06-29 MICROALBUMIN/CREAT. Pending 13:35:45 RATIO WITH CREATININE (ALONDRA URINE) (54538) [code = 09611] Diagnostic Test 2021-06-29 LIPID PANEL (94496) Pending 13:35:39 [code = 57086] Diagnostic Test 2021-06-29 COMPREHENSIVE Pending 13:35:39 METABOLIC PANEL (84655) [code = 15368] Future Scheduled 2017 [facility] 00:[facility]:00 malignant neoplasm of colon (procedure) [code = 494030182] Future Scheduled 2017 [facility] 00:00:00 malignant neoplasm of colon (procedure) [code = 786075798] Future Scheduled 2017 [facility] 00:00:00 malignant neoplasm of colon (procedure) [code = 811313651] Future Scheduled 2017 [facility] 00:00:00 malignant neoplasm of colon (procedure) [code = 834197266] Future Scheduled 1985 Diabetic foot [facility] Test 00:00:00 examination (regime/therapy) [code = 664390873] Future Scheduled 1985 Urine [facility] 00:00:00 protein (procedure) [code = 171550660] Future Scheduled 1985 DM Retinal Exam [facility] 00:00:00 (Yearly) [code = DM Retinal Exam (Yearly)] Future Scheduled 1985 DM Foot Exam (Yearly) [facility] 00:00:00 [code = DM Foot Exam (Yearly)] Future Scheduled 1985 U[facility] 00:00:00 protein (procedure) [code = 994589546] Future Scheduled 1985 DM [facility] 00:00:00 (Yearly) [code = DM Retinal Exam (Yearly)] Future Scheduled 1985 DM Foot Exam (Yearly) [facility] 00:00:00 [code = DM Foot Exam (Yearly)] Future Scheduled 1985 U[facility] 00:00:00 protein (procedure) [code = 394642317] Future Scheduled 1985 DM [facility] 00:00:00 (Yearly) [code = DM Retinal Exam (Yearly)] Future Scheduled 1985 [facility] 00:00:00 examination (regime/therapy) [code = 736394137] Future Scheduled 1985 U[facility] 00:00:00 protein (procedure) [code = 173283338] Future Scheduled 1985 DM [facility] 00:00:00 (Yearly) [code = DM Retinal Exam (Yearly)] Future Scheduled 1967 COVID-19 Vaccine (#1) [facility] 00:00:00 [code = COVID-19 Vaccine (#1)] Future Scheduled 1967 COVID-19 Vaccine (#1) [facility] 00:00:00 [code = COVID-19 Vaccine (#1)] Future Scheduled 1967 COVID-19 Vaccine (#1) [facility] 00:00:00 [code = COVID-19 Vaccine (#1)] Future Scheduled 1967 COVID-19 Vaccine (#1) [facility] 00:00:00 [code = COVID-19 Vaccine (#1)] Future Scheduled 1967 Hem[facility] A1c [facility] 00:[facility]:00 measurement (procedure) [code = 28082707] Future Scheduled 1967 Hemoglobin A1c [facility] 00:00:00 measurement (procedure) [code = 75315189] Future Scheduled 1967 Fluoride Varnish [code [facility] 00:00:00 = Fluoride Varnish] Future Scheduled 1967 Hemoglobin A1c [facility] 00:00:00 measurement (procedure) [code = 39883684] Future Scheduled 1967 Fluoride Varnish [code [facility] 00:00:00 = Fluoride Varnish] Future Scheduled 1967 Hemoglobin A1c [facility] Test 00:00:00 measurement (procedure) [code = 40763108] Encounters Start End Encounter Admission Attending Care Care Encounter Source Date/Time Date/Time Type Type Clinicians Facility Department ID 2022-09-05 Outpatient [id number] 5DA0-4 [facility] 19:47:40 4550-4F68 50-6J35-5CG 550-4F68- 9 l -5AD0-F28 8-C299X0TS6 EF8-C365D8 [facility] [id number] C31 EA8C31 2022-08-22 Outpatient 504SE5NP- 298EP1OX-KK 040A D3FD-E [facility] 13:17:42 EEDC-4D67 DC-4V08-E8V EDC-4D67- B l -G3J3-US2 8-TH3684469 1D6-WJ0127 Gu[facility] [id number] [id number] 8835-05-01 Outpatient [id number] [id number]-R0 2664 7F96-A [facility] 10:26:06 B7R3-8H89 D0-6G55-MK1 0T4-3F78- B l -IW6S-M11 D-K94Z662D3 U1A-L56Q35 [facility] [id number] 284 4D6189 2022-07-01 Outpatient 05VB12S6- 47OZ18V5-8I 52CB 02A8-1 [facility] 18:22:57 4J49-7O3D 86-3J4K-S1Z X85-8K0H- A l -O1EH-185 F-675K883GI 7DF-972C65 [facility] [id number] 841 1ZO858 2022-06-25 Outpatient D439HG4P- V260HR0C-53 C555 AD3A-6 [facility] 13:13:28 6801-408F 01-408F-9CD 801-408F- 9 l -5TL4-3L2 5-3D35K9193 CD5-9B11D0 [facility] 4H5665NQG CAF 333CAF 2022-06-21 Outpatient [id number]- [id number] 2314 01CA-8 [facility] 16:24:21 8273-427F 73-427F-927 273-427F- 9 l -9279-910 9-8657597FX 279-869249 [facility] 8866OB32A 00D 8DD00D 2022-05-10 Outpatient 6Y5VK968- 6U6KZ848-T7 2E9D D710-A [facility] 06:40:42 T13X-42M5 5F-70H9-26Q 65F-48A2- 9 l -19K3-0A5 9-2A347PNRC 5E4-6L553V [facility] 17RDVC169 329 PMZ235 2022-05-08 Outpatient VVZ2NFC5- LBH8GPZ8-88 BEF6 CBA3-5 [facility] 15:37:53 503B-4880 3B-4880-9B6 03B-4880- 9 l -6J6U-2LY D-5XBL05163 E6H-7SLY68 [facility] D62776Z31 C18 509C18 2022-04-19 Outpatient 9NGA7Q8C- 6WOY2Q5K-15 1BBB 5C0D-8 [facility] 13:59:31 56V0-2365 F1-4973-998 4S0-9949- 9 l -998B-F76 B-O79618357 98B-M54328 [facility] [id number] 327 606020 7437-12-28 Outpatient 45UUX35J- 45NRJ44H-KF 79BE F91E-D [facility] 13:31:43 DAD3-4873 D3-4873-877 AD3-4873- 8 l -8771-2E6 1-3S8Y181S0 771-2E6E91 [facility] L971V5406 342 5R4864 2022-04-13 Outpatient 2761N7K8- 4082Z3Q9-34 4505 A0B3-1 [facility] 15:36:01 15FB-4C6B FB-9B7T-E07 5FB-4C6B- A l -C07F-J78 B-U95V5W573 59B-D42D0C [facility] P0S537H4U A6F 833A6F 2022-04-12 Outpatient 95Y8FXO0- 24S6AOX7-8S 06B9 BCB5-0 [facility] 15:30:39 2P01-6BG9 07-7YY9-115 Q05-2ZH7- 9 l -9202-AD6 2-PQ63A38SO 202-AD61D6 [facility] 5L18JZU36 A84 7EAA84 2022-03-11 Outpatient 161M3AO0- 260Z1CN4-12 938D 5EE5-8 [facility] 19:30:21 857A-4A82 7A-7E66-M7H 57A-4A82- B l -J0Z0-8P5 5-0S78633WR 5X3-1R3805 [facility] 4367DA169 155 4NY339 2022-03-08 Outpatient [id number]- 0I008205-12 3A45 0898-9 [facility] 21:44:29 9339-4C22 39-7F16-G24 339-4C22- A l -R64W-86B E-20U97JXWS 45E-85D07A [facility] 23FVQB261 545 VFS591 2022-01-04 Outpatient 1KGR2SCH- 9FLR0IQB-5O 9DDA 6CAA-4 [facility] 07:00:32 5S27-0540 77-4012-BA3 Y88-0667- B l -HB26-P24 9-W83XVPOE0 V42-R58CIH [facility] OIJUP4OV3 CD2 AD3CD2 2021-12-31 Outpatient [id number] 765663C4-X9 3447 38E1-B [facility] 12:10:15 M0G4-294K E1-485D-91D 5Z1-405W- 9 l -40E7-G62 2-S82473178 3W1-R61457 [facility] 518978UE8 AC5 327AC5 2021-10-07 Inpatient Janina, HCABM HCABM [id number] [facility] 06:58:00 Jerry [id number] [facility] 2021-07-14 [id number] [place] 04:59:20 [id number] [facility] 2021-06-28 [facility] [id number] [place] 15:37:52 [id number] [facility] 2021-06-15 [facility] [id number] [place] 11:20:44 [id number] [facility] 2021-03-30 Outpatient [id number]- 8293SV40-6T 9110 FB25-7 [facility] 23:09:22 0Q04-935A 85-469A-9A5 J35-231L- 9 l -1Q1D-J89 B-M1890J992 M1X-H9501B [place] 25J995W42 B38 918B38 2020-06-30 Inpatient HCAKW HCAKW [id number] [facility] 09:04:59 17 [facility] 2020-02-27 Inpatient HCACR AMA [id number] [facility] 13:37:00 01 [facility] 2019-10-08 Inpatient HCABM NCER [id number] [facility] 12:23:00 18 [facility] 2022-11-06 2022-11-06 Outpatient R RAMÓN KRAFT [facility] [id number] Univers 13:30:00 13:30:00 RAMÓN KRATF [facility] 2022-09-10 2022-09-10 Outpatient R DAJA [facility] [id number] Univers 10:30:00 10:30:00 JENI [facility] 2022-09-04 2022-09-04 [facility] 1.2.840.114 [id number] Univers 00:00:00 00:00:00 Outreach Mari [place] 350.1.13.10 ity [facility] [id number] [address] 2022-09-02 2022-09-02 Telephone Abena [facility] 1.2.840.114 [id number] Univers 00:00:00 00:00:00 Ramón [place] 350.1.13.10 ity [facility] [place] [id number] Ks dical NAL [address] [facility] 2022-08-30 2022-08-30 [facility] 1.2.840.114 [id number] Univers 00:00:00 00:00:00 Ogechukwu [place] 350.1.13.10 ity of [place] [id number] Ks dical NAL 0[address] [facility] 2022-08-28 2022-08-28 [facility] 1.2.840.114 103 [id number] Univers 00:00:00 00:00:00 Ogechukwu [place] 350.1.13.10 ity [place] [id number] Ks dical NAL 231 [facility] 2022-08-27 2022-08-27 [facility] 1.2.840.114 103 [id number] Univers 00:00:00 00:00:00 Ogechukwu [place] 350.1.13.10 ity of [place] [id number] Ks dical NAL 044 [facility] 2022-08-27 2022-08-27 [facility] 1.2.840.114 103 [id number] Univers 00:00:00 00:00:00 Ogechukwu [place] 350.1.13.10 ity of [place] [id number] Ks dical NAL 044 [facility] 2022-08-26 2022-08-26 Telephone [facility] 1.2.840.114 103 [id number] Univers 00:00:00 00:00:00 Ogechukwu [place] 350.1.13.10 ity of [place] [id number] Ks dical NAL 044 [facility] 2022-08-21 2022-08-21 Abstract [facility] 1.2.459.368 6776 68449 Univers 00:00:00 00:00:00 Ramón [place] 350.1.13.10 ity of [place] [phone] Ks dical NAL 044 [facility] 2022-08-19 2022-08-19 Telephone [facility] 1.2.840.114 102 [id number] Univers 00:00:00 00:00:00 Ograncheryl [place] 350.1.13.10 ity of [place] 4.2.7.2.[address] [facility] [id number] Ks dicnc NAL 0[address] [facility] 2022-08-15 2022-08-15 Outpatient R RENEE [facility] [id number] Univers 15:40:00 15:40:00 LEIGHTON JEFFERSON it y [facility] 2022-08-14 2022-08-14 Emergency [facility] [id number] Univers 00:06:00 03:01:[address] [facility] 2022-08-14 2022-08-[address] [facility] 1.2.840.114 1 [id number] Univers 00:06:00 03:01:00 Les [place] 350.1.13.10 i ty of [place].7.2.[place] TOA BAJA [id number] [facility] [address] 2022-08-08 2022-08-08 Outpatient R CIARA [facility] [id number] Univers 16:45:00 15:22:09 BLAS ity of [facility] 2022-08-07 2022-08-07 Orders Doctor GILBERT 1.2.840.114 [id number] Univers 00:00:00 00:00:00 Only Unassigned, BRANDEE 350.1.13.10 ity of [place] [facility] 4.2.7.2.686 Suhas as [id number] [facility] [address] 2022-08-07 2022-08-07 Telephone [facility] 1.2.840.114 102 [id number] Univers 00:00:00 00:00:00 Ramón [place] 350.1.13.10 ity of [place] [id number] Ks dical NAL 0[address] [facility] 2022-08-05 2022-08-05 Outpatient R RAMÓN KRAFT [facility] [id number] Univers 13:00:00 14:16:22 ABENA, LADIReji ity of [facility] 2022-08-05 2022-08-05 Office Abena [facility] 1.2.840.114 [id number] Univers 13:00:00 14:16:22 Visit Matthewbasilioreji [place] 350.1.13.10 ity [facility] 4.2.7.2.[place] [id number] Ks dical NAL 0[address] [facility] 2022-08-05 2022-08-05 Patient Bao [facility] 1.2.840.114 [id number] Univers 00:00:00 00:00:00 Outreach Mari [place] 350.1.13.10 ity [facility] 4.2.[place] [id number] Ks dical NAL 0[address] [facility] 2022-08-01 2022-08-01 Transition TANI Snow 1.2.840.114 102 [id number] Univers 00:00:00 00:00:00 of Care Alex MORALES 350.1.13.10 ity of [place].2.[place] [id number] [facility] [address] 2022-08-01 2022-08-01 Telephone GILBERT Mcneal 1.2.840.114 10 [id number] Univers 00:00:00 00:00:00 Clare IRVIN 350.1.13.10 it y of [facility] 4.2.7.2.686 Suhas as [id number] [facility] [address] 2022-07-28 2022-07-31 Inpatient U GAEL [facility] [id number] Univers 01:36:00 19:14:00 MALIK ity of [facility] 2022-07-28 2022-07-31 Hospital Brennan Love 1.2.840.114 [id number] Univers 01:36:00 19:14:00 Encounter Malik Mayo 350.1.13.10 ity of [facility] 4.2.7.2.686 Suhas [id number] [facility] [address] 2022-07-18 2022-07-19 Emergency [facility] 1.2.730.851 [id number] Univers 21:30:00 01:47:00 Adolfo Perez [place] 350.1.13.10 ity [facility] 4.2.7.2.686 [facility] [id number] [facility] [address] 2022-07-18 2022-07-19 Emergency X [facility] ERT [id number] Univers 21:30:00 01:47:00 ADOLFO [facility] 2022-06-25 2022-07-03 [facility] Francesca Stevens 1.2.840.1 [id number] Methodi 10:52:00 03:00:00 Encounter Wilberto Joe 23801.1.[address] Naif [place] 3.430.2.7 H ospita .3.678046 l .8 2022-06-25 2022-07-03 [facility] Francesca Stevens 1.2.840.1 [id number] Methodi 10:52:00 03:00:00 Encounter Wilberto Joe 51154.1.[address] Edmund [place] 3.430.2.7 H ospita .3.292258 l .8 2022-07-03 2022-07-03 Documentat Jose Alberto, 1.2.840.1 [id number] 2 [id number] Methodi 00:00:00 00:00:00 ion Cheryle 90512.1.[address] 3.430.2.7 Hospit a .3.591742 l .8 2022-07-03 2022-07-03 Documentat Jose Alberto, 1.2.840.1 [id number] 2 [id number] Methodi 00:00:00 00:00:00 ion Cheryle [address]14.1.[address] 3.430.2.7 Hospit a .3.683338 l .8 2022-06-26 2022-06-26 Surgery Nurko, 1.2.840.1 [id number] 793294 7009 Methodi 16:50:00 18:20:[address] 3.430.2.7 Hospit a .3.885253 l .8 2022-06-26 2022-06-26 Surgery Nurko, 1.2.840.1 [id number] 975639 7909 Methodi 16:50:00 18:20:[address] 3.430.2.7 Hospit a .3.934418 l .8 2022-06-26 2022-06-26 Anesthesia [facility] 1.2.840.1 104 161286 [id number] Methodi 16:46:00 17:36:00 Event Thong Torres 06166.1.[address] 3.430.2.7 Hospit a .3.513499 l .8 2022-06-26 2022-06-26 Anesthesia [facility] 1.2.840.1 104 721476 [id number] Methodi 16:46:00 17:36:00 Event Thong Torres 18794.1.[address] 3.430.2.7 Hospit a .3.857336 l .8 2022-06-25 2022-06-25 Office Nur, 1.2.840.1 [id number] 927440 1328 Methodi 09:00:00 10:28:55 Visit Jin 49317.1.[address] 3.430.2.7 Hospit a .3.401169 l .8 2022-06-25 2022-06-25 Office Nur, 1.2.840.1 [id number] 816918 5806 Methodi 09:00:00 10:28:55 Visit Jin 70571.1.[address] 3.430.2.7 Hospit a .3.122739 l .8 2022-06-25 2022-06-25 Travel 1.2.840.1 1.2.527.912 6029 389510 Methodi 00:00:00 00:00:[address] 3.430.2.7 0.2.7.3.698 Ho spita .3.805831 084.8 l .8 2022-06-25 2022-06-25 Travel 1.2.840.1 1.2.493.802 8394 754631 Methodi 00:00:00 00:00:[address] 3.430.2.7 0.2.7.3.698 Ho spita .3.442549 084.8 l .8 2022-06-21 2022-06-21 Office Davin Walker 1.2.840.1 [id number] Methodi 13:00:00 14:47:04 Visit Louisa Escobar 88212.1.[address] 3.430.2.7 Hospit a .3.663382 l .8 2022-06-21 2022-06-21 Office Davin Walker 1.2.840.1 [id number] Methodi 13:00:00 14:47:04 Visit Louisa Escobar 42794.1.[address] 3.430.2.7 Hospit a .3.663094 l .8 2022-06-21 2022-06-21 Travel 1.2.840.1 1.2.743.599 8641 221876 Methodi 00:00:00 00:00:[address] 3.430.2.7 0.2.7.3.698 Ho spita .3.796117 084.8 l .8 2022-06-21 2022-06-21 Travel 1.2.840.1 1.2.327.045 7998 555980 Methodi 00:00:00 00:00:[address] 3.430.2.7 0.2.7.3.698 Ho spita .3.253133 084.8 l .8 2022-06-14 2022-06-14 Office [facility], 1.2.840.1 [id number] 3631 Methodi 13:10:00 13:23:28 Visit Jin 41549.1.[address] 3.430.2.7 Hospit a .3.843094 l .8 2022-06-14 2022-06-14 Office [facility], 1.2.840.1 [id number] 750063 8905 Methodi 13:10:00 13:23:28 Visit Jin 38015.1.[address] 3.430.2.7 Hospit a .3.950415 l .8 2022-06-14 2022-06-14 Travel 1.2.840.1 1.2.931.110 8719 315856 Methodi 00:00:00 00:00:[address] 3.430.2.7 0.2.7.3.698 Ho spita .3.166888 084.8 l .8 2022-06-14 2022-06-14 Travel 1.2.840.1 1.2.445.221 6772 968590 Methodi 00:00:00 00:00:[address] 3.430.2.7 0.2.7.3.698 Ho spita .3.575637 084.8 l .8 2022-05-24 2022-05-24 Office [facility], 1.2.840.1 [id number] 020143 7771 Methodi 14:00:00 14:54:06 Visit Davin 19716.1.[address] 3.430.2.7 Hospit a .3.763086 l .8 2022-05-24 2022-05-24 Office [facility], 1.2.840.1 [id number] 1961 Methodi 14:00:00 14:54:06 Visit Davin 70377.1.[address] 3.430.2.7 Hospit a .3.907664 l .8 2022-05-24 2022-05-24 Travel 1.2.840.1 1.2.816.324 6772 604847 Methodi 00:00:00 00:00:[address] 3.430.2.7 0.2.7.3.698 Ho spita .3.984923 084.8 l .8 2022-05-24 2022-05-24 Travel 1.2.840.1 1.2.055.850 1284 410040 Methodi 00:00:00 00:00:[address] 3.430.2.7 0.2.7.3.698 Ho spita .3.113631 084.8 l .8 2022-05-08 2022-05-14 [facility] 1.2.840.1 [id number] Methodi 11:57:00 14:24:00 Encounter Noman Brewer 37117.1.1 [facility]7 [facility] .3.310488 l .8 2022-05-08 2022-05-14 [facility] Kenneth Scooter 1.2.840.1 [id number] Methodi 11:57:00 14:24:00 Encounter Noman Brewer 53789.1.1 [facility] .3.268098 l .8 2022-05-14 2022-05-14 Documentat [facility], 1.2.840.1 [id number] Methodi 00:00:00 00:00:[address]471.1.[address] 3.430.2.7 Hospit a .3.386918 l .8 2022-05-14 2022-05-14 Documentat [facility], 1.2.840.1 [id number] Methodi 00:00:00 00:00:[address].1.[address] 3.430.2.7 Hospit a .3.211998 l .8 2022-05-102022-05-10 Surgery Nurko, 1.2.840.1 [id number] 6269 Methodi 11:00:00 13:05:[address] 3.430.2.7 Hospit a .3.491184 l .8 2022-05-10 2022-05-10 Surgery Nurko, 1.2.840.1 [id number] 146661 2958 Methodi 11:00:00 13:05:[address] 3.430.2.7 Hospit a .3.564314 l .8 2022-05-10 2022-05-10 Anesthesia Beulah Barcenas 1.2.840.1 181006 023 [id number] Methodi 11:12:00 12:34:00 Event Bee Mari Ann 23961.1.[address] 3.430.2.7 Hospit a .3.853604 l .8 2022-05-10 2022-05-10 Anesthesia Beulah Barcenas 1.2.840.1 179265 023 [id number] Methodi 11:12:00 12:34:00 Event Mari Gamboa Richie 96279.1.[address] 3.430.2.7 Hospit a .3.825781 l .8 2022-04-24 2022-04-24 Patient Carroll, 1.2.840.1 [id number] 95343 34414 Methodi 00:00:00 00:00:00 Outreach Cheri 78483.1.1 432 s t 3.430.2.7 Hospit a .3.509228 l .8 2022-04-24 2022-04-24 Patient Carroll, 1.2.840.1 [id number] 64417 39396 Methodi 00:00:00 00:00:00 Outreach Cheri 37431.1.1 432 s t 3.430.2.7 Hospit a .3.571899 l .8 2022-04-12 2022-04-19 [facility] .1 [id number] Methodi 15:27:00 19:06:00 Encounter Hector Orozco 08162.1.[address] Fahad Costello 3.430.2.7 Hospita Abid .3.282601 lilia García, July .8 2022-04-12 2022-04-19 [facility] 1.2.840 .1 [id number] Methodi 15:27:00 19:06:00 Encounter Hector Orozco 51388.1.[address] Fahad Costello 3.430.2.7 Hospita , Abid .3.245431 l Ricky, July .8 2022-04-19 2022-04-19 Anesthesia Tu, 1.2.840.1 [id number] 326 [id number] Methodi 14:04:00 14:26:00 Event Jesus 83903.1.[address] Thi 3.430.2.7 Hospit a .3.463657 l .8 2022-04-19 2022-04-19 Anesthesia Tu, 1.2.840.1 [id number] 603 [id number] Methodi 14:04:00 14:26:00 Event Jesus 66713.1.[address] Thi 3.430.2.7 Hospit a .3.253744 l .8 2022-03-08 2022-03-14 [facility] 1.2.840.1 10 [id number] Methodi 22:25:00 20:26:00 Encounter Jeff Short Thi 08902.1.1 934 [facility] Chacha Carbajal .3.614865 l Noman Brewer .8 2022-03-08 2022-03-14 [facility] 1.2.840.1 10 [id number] Methodi 22:25:00 20:26:00 En[place] 14430.1.1 934 [facility] 3.430.2.7 Hospita Chacha Costello .3.699841 l Noman Brewer .8 2022-03-12 2022-03-12 Surgery Nurko, 1.2.840.1 [id number] 3989 Methodi 14:03:00 15:48:[address] 3.430.2.7 Hospit a .3.568841 l .8 2022-03-12 2022-03-12 Surgery Nurko, 1.2.840.1 [id number] [id number] 2051 Methodi 14:03:00 15:48:[address] 3.430.2.7 Hospit a .3.571347 l .8 2022-03-12 2022-03-12 Anesthesia Urrutia, 1.2.840.1 [id number] 503 [id number] Methodi 14:23:00 15:33:00 Event Mary Estevez 99360.1.[address] 3.430.2.7 Hospit a .3.399054 l .8 2022-03-12 2022-03-12 Anesthesia Urrutia, 1.2.840.1 [id number] 537 [id number] Methodi 14:23:00 15:33:00 Event Mary Estevez 41141.1.[address] 3.430.2.7 Hospit a .3.133670 l .8 2022-03-08 2022-03-08 Travel 1.2.840.1 1.2.060.034 3845 551504 Methodi 00:00:00 00:00:[address] 3.430.2.7 0.2.7.3.698 Ho spita .3.296929 084.8 l .8 2022-03-08 2022-03-08 Travel 1.2.840.1 1.2.160.785 9735 756190 Methodi 00:00:00 00:00:[address] 3.430.2.7 0.2.7.3.698 Ho spita .3.248256 084.8 l .8 2022-01-01 2022-01-05 [id number] 16:59:00 12:20:00 Ab Doyle [facility] 2021-12-10 2021-12-14 [facility] Wilberto Carbajal 1.2.840.1 104 274869 [id number] Methodi 21:52:00 15:50:00 Encounter Ale Farias Amod 63338.1.1 117 René Melendrez 3.430.2.7 Hospita .3.903556 l .8 2021-12-10 2021-12-14 [facility] Solomon Wilberto Efren 1.2.840.1 104 595093 [id number] Methodi 21:52:00 15:50:00 Encounter Ale Farias Amod 28393.1.1 117 René Melendrez 3.430.2.7 Hospita .3.691035 l .8 2021-12-10 2021-12-10 Travel 1.2.840.1 1.2.204.104 9333 941411 Methodi 00:00:00 00:00:[address] 3.430.2.7 0.2.7.3.698 Ho spita .3.877518 084.8 l .8 2021-12-10 2021-12-10 Travel 1.2.840.1 1.2.510.443 3268 517641 Methodi 00:00:00 00:00:[address] 3.430.2.7 0.2.7.3.698 Ho spita .3.712093 084.8 l .8 2021-11-08 2021-11-08 Emergency Mitzi, 1.2.840.1 [id number] 2099 [id number] Methodi 10:26:00 14:01:[address] 3.430.2.7 Hospit a .3.320238 l .8 2021-11-08 2021-11-08 Emergency Mitzi, 1.2.840.1 [id number] 2100 914956 Methodi 10:26:00 14:01:[address] 3.430.2.7 Hospit a .3.245259 l .8 2021-10-10 2021-10-10 Emergency Ip, Fahad 1.2.840.1 [id number] Methodi 20:57:00 23:49:[address] 3.430.2.7 Hospit a .3.479856 l .8 2021-10-10 2021-10-10 Emergency Ip, Fahad 1.2.840.1 [id number] Methodi 20:57:00 23:49:[address] 3.430.2.7 Hospit a .3.080315 l .8 2021-10-07 2021-10-07 Emergency [facility] [id number] 06:46:00 07:39:00 Jerry 58 [facility] 2021-09-30 2021-09-30 Emergency [facility] [id number] [facility] 18:18:00 19:46:00 Margo 39 [facility] 2021-08-15 2021-08-15 Outpatient GC_HGMDA_Go PRIV PRIV 110 46024-0 [facility] 09:28:00 09:28:00 nzalez_J [id number] Medic al 2021-08-13 2021-08-13 Outpatient GC_HGMDA_Go PRIV PRIV 110 99625-3 [facility] 12:25:00 12:25:00 nzalez_J [id number] Medic al 2021-08-06 2021-08-06 Emergency [id number] [id number] [facility] 15:06:00 18:56:00 Brennan 32 [facility] 2021-07-18 2021-07-18 Outpatient [facility] [id number] [address] 00:00:00 00:00:00 [facility] 2021-06-29 2021-06-29 Office 0 Vielka [id number] 13:30:00 16:29:55 Visit 06 2021-06-29 2021-06-29 Outpatient [facility] 2343 820-20 [place] 13:13:00 13:13:00 Superior [facility] [id number] [facility] 2021-03-22 2021-03-22 Travel 1.2.840.1 1.2.728.088 0585 [id number] Methodi 00:00:00 00:00:[address] 3.430.2.7 0.2.7.3.698 Ho spita .3.694835 084.8 l .8 2021-02-02 2021-02-02 [id number] 0266 63276 [place] 14:47:00 17:56:00 Shazia burns 2021-02-02 2021-02-02 Emergency [facility] [id number] [place] 15:08:10 15:31:04 [facility] 2021-01-02 2021-01-03 [facility] 1.2.840.1 [id number] 2 [id number] Methodi 18:54:00 01:22:[address] Donal[address] 3.430.2.7 Hospit a .3.268057 l .8 2020-12-24 2020-12-24 Emergency JAELYN Roa [facility] [id number] [facility] 12:04:00 17:13:00 Jerry 01 [facility] Results Test Description Test Time Test Comments Results Result Comments Source POCT GLUCOSE (AUTOMATED) 2022-08-14 07:30:03 Test Item Value Reference Range Interpretation Comme nts POCT GLU (test code = 9218726662) 175 mg/dL 70-110 H Lab Interpretation (test code = 63262-3) Abnormal [facility] METABOLIC PANEL (NA, K, CL, CO2, GLUCOSE, BUN, CREATININE, CA)2022-08-14 06:49:10 Test Item Value Reference Range Interpretation Comments NA (test code = 137 mmol/L 135-145 3754471382) K (test code = 4.8 mmol/L 3.5-5.0 8418175683) CL (test code = 106 mmol/L 98-108 2644582676) CO2 TOTAL (test code = 25 mmol/L 23-31 7951322704) AGAP (test code = 6 2-16 9513865284) BUN (test code = 35 mg/dL 7-23 H 9158765104) GLUCOSE (test code = 187 mg/dL 70-110 H 2717635661) CREATININE (test code = 1.19 mg/dL 0.60-1.25 1433908922) CALCIUM (test code = 8.5 mg/dL 8.6-10.6 L 5165731388) eGFR (test code = 63.5 mL/min/1.73m2 7642009511) MOE (test code = MOE) Association of [...] tests). Lab Interpretation Abnormal (test code = 03898-6) [facility] WITH [id number] 06:35:09 Test Item Value Reference Range Interpretation [...] (test code = 58.6 fL 38.5-51.6 H 33315-1) RDW-CV (test code = 17.5 % 12.1-15.4 H 788-0) PLT (test code = 328 See_Comment [Automated 777-3) message] The sy stem which generated this result transmitted reference range : 150 - 328 10*3/ ?L. The reference r maggi was not used to interpret this result as normal/abnormal . MPV (test code = 10.1 fL 9.8-13.0 27764-8) NRBC/100 WBC (test 0.0 See_Comment [Automat ed code = 5729612945) message] The system which generated this result transmitted reference range : 0.0 - 10.0 /100 WBCs. The refer ence range was not u sed to interpret th is result as normal/abnormal . NRBC x10^3 (test code See_Comment [Auto mated = 6984750298) message] The s ystem which generated this result transmitted reference range : 10*3/?L. The reference range was not used to interpret this result as normal/abnormal . GRAN MAT (NEUT) % 63.9 % (test code = 770-8) IMM GRAN % (test code 0.50 % = 2578081124) LYMPH % (test code = 24.9 % 736-9) MONO % (test code = 7.4 % 5905-5) EOS % (test code = 2.4 % 713-8) BASO % (test code = 0.9 % 706-2) GRAN MAT x10^3(ANC) 4.21 10*3/uL 1.99-6.95 (test code = 2800011185) IMM GRAN x10^3 (test 0.03 10*3/uL 0.00-0.06 code = 4009390552) LYMPH x10^3 (test code 1.64 10*3/uL 1.09-3.23 = 731-0) MONO x10^3 (test code 0.49 10*3/uL 0.36-1.02 = 742-7) EOS x10^3 (test code = 0.16 10*3/uL 0.06-0.53 711-2) BASO x10^3 (test code 0.06 10*3/uL 0.01-0.09 = 704-7) Lab Interpretation Abnormal (test code = 97974-1) [facility] 12 [id number] 20:13:46 Test Item Value Reference Range Interpretation Comments Ventricular rate (test 79 code = 253) Atrial rate (test code 79 = 255) AL interval (test code 150 = 266) QRSD interval (test 128 code = 260) QT interval (test code 408 = 264) QTC interval (test code 467 = 265) P axis 1 (test code = 67 267) QRS axis 1 (test code = -85 268) T wave axis (test code 48 = 270) EKG impression (test Normal sinus code = 273) rhythm-Left axis deviation-Right bundle branch block-Abnormal ECG-In automated comparison with ECG of 19-APR-2022 14:33,-Nonspecific T wave abnormality no longer evident in Inferior leads-Nonspecific T wave abnormality no longer evident in Lateral leads-QT has lengthened-Electronica lly Signed By Jaspreet Cannon MD ([id number]) on 08/08/2022 3:13:43 PM [place] [address] [id number] 20:13:46 Test Item Value Reference Range Interpretation Comments Ventricular rate (test 79 code = 253) Atrial rate (test code 79 = 255) AL interval (test code 150 = 266) QRSD interval (test 128 code = 260) QT interval (test code 408 = 264) QTC interval (test code 467 = 265) P axis 1 (test code = 67 267) QRS axis 1 (test code = -85 268) T wave axis (test code 48 = 270) EKG impression (test Normal sinus code = 273) rhythm-Left axis deviation-Right bundle branch block-Abnormal ECG-In automated comparison with ECG of 19-APR-2022 14:33,-Nonspecific T wave abnormality no longer evident in Inferior leads-Nonspecific T wave abnormality no longer evident in Lateral leads-QT has lengthened-Electronica lly Signed By Jaspreet Cannon MD ([id number]) on 08/08/2022 3:13:43 PM [place] [address] [id number] 20:13:46 Test Item Value Reference Range Interpretation Comments Ventricular rate (test 79 code = 253) Atrial rate (test code 79 = 255) AL interval (test code 150 = 266) QRSD interval (test 128 code = 260) QT interval (test code 408 = 264) QTC interval (test code 467 = 265) P axis 1 (test code = 67 267) QRS axis 1 (test code = -85 268) T wave axis (test code 48 = 270) EKG impression (test Normal sinus code = 273) rhythm-Left axis deviation-Right bundle branch block-Abnormal ECG-In automated comparison with ECG of 19-APR-2022 14:33,-Nonspecific T wave abnormality no longer evident in Inferior leads-Nonspecific T wave abnormality no longer evident in Lateral leads-QT has lengthened-Electronica lly Signed By Jaspreet Cannon MD ([id number]) on 08/08/2022 3:13:43 PM [facility]2023-04-20 05:30:00 Test Item Value Reference Range Interpretation Comments AFB culture No growth Specimen isolate (test after 6 weeks [facility] ecimen code = 543-9) of Source: Tissue Specimen incubation. Site: Leg: Left Lower Extremity - Cul ture [facility] [id number] 05:30:00 Test Item Value Reference Range Interpretation Comments AFB culture No growth Specimen isolate (test after 6 weeks InformationSp ecimen code = 543-9) of Source: Tissue Specimen incubation. Site: Leg: Left Lower Extremity - Cul [facility] [id number] 05:30:00 Test Item Value Reference Range Interpretation Comments AFB culture No growth Specimen isolate (test after 6 weeks InformationSp ecimen code = 543-9) of Source: Tissue Specimen incubation. Site: Leg: Left Lower Extremity - [facility] 22:28:25 Test Item Value Reference Range Interpretation Comments POCT GLU (test code = 3817732844) 116 mg/dL 70-110 H Lab Interpretation (test code = Abnormal 60700-2) [facility] GLUCOSE (AUTOMATED)2022-07-31 17:14:36 Test Item Value Reference Range Interpretation Comments POCT GLU (test code = 6129120005) 136 mg/dL 70-110 H Lab Interpretation (test code = Abnormal 91881-2) [facility] GLUCOSE (AUTOMATED)2022-07-31 01:47:10 Test Item Value Reference Range Interpretation Comments POCT GLU (test code = 5956281762) 141 mg/dL 70-110 H Lab Interpretation (test code = Abnormal 88330-6) [facility] GLUCOSE (AUTOMATED)2022-07-30 23:18:09 Test Item Value Reference Range Interpretation Comments POCT GLU (test code = 2404124853) 140 mg/dL 70-110 H Lab Interpretation (test code = Abnormal 18502-6) [facility] GLUCOSE (AUTOMATED)2022-07-30 18:43:38 Test Item Value Reference Range Interpretation Comments POCT GLU (test code = 8470371946) 165 mg/dL 70-110 H Lab Interpretation (test code = Abnormal 84094-5) [facility] GLUCOSE (AUTOMATED)2022-07-30 14:19:36 Test Item Value Reference Range Interpretation Comments POCT GLU (test code = 4273153534) 90 mg/dL 70-110 Lab Interpretation (test code = Normal 75474-9) [facility] GLUCOSE (AUTOMATED)2022-07-30 01:37:57 Test Item Value Reference Range Interpretation Comments POCT GLU (test code = 2991461964) 100 mg/dL 70-110 Lab Interpretation (test code = Normal 36933-2) [facility] GLUCOSE (AUTOMATED)2022-07-29 22:44:33 Test Item Value Reference Range Interpretation Comments POCT GLU (test code = 8333107351) 113 mg/dL 70-110 H Lab Interpretation (test code = Abnormal 93447-7) [facility] GLUCOSE (AUTOMATED)2022-07-29 18:36:00 Test Item Value Reference Range Interpretation Comments POCT GLU (test code = 3726763529) 108 mg/dL 70-110 Lab Interpretation (test code = Normal 26725-7) [facility] GLUCOSE (AUTOMATED)2022-07-29 13:47:37 Test Item Value Reference Range Interpretation Comments POCT GLU (test code = 6585756059) 91 mg/dL 70-110 Lab Interpretation (test code = Normal 38788-6) [facility] GLUCOSE (AUTOMATED)2022-07-29 01:19:16 Test Item Value Reference Range Interpretation Comments POCT GLU (test code = 8759697521) 143 mg/dL 70-110 H Lab Interpretation (test code = Abnormal 06710-9) [facility] GLUCOSE (AUTOMATED)2022-07-28 21:10:26 Test Item Value Reference Range Interpretation Comments POCT GLU (test code = 2434135130) 148 mg/dL 70-110 H Lab Interpretation (test code = Abnormal 45657-3) [facility] GLUCOSE (AUTOMATED)2022-07-28 17:13:13 Test Item Value Reference Range Interpretation Comments POCT GLU (test code = 4703590633) 199 mg/dL 70-110 H Lab Interpretation (test code = Abnormal 95451-4) [facility] GLUCOSE (AUTOMATED)2022-07-28 12:53:47 Test Item Value Reference Range Interpretation Comments POCT GLU (test code = 7783625052) 113 mg/dL 70-110 H Lab Interpretation (test code = Abnormal 62428-1) [facility] GLUCOSE (AUTOMATED)2022-07-28 08:02:41 Test Item Value Reference Range Interpretation Comments POCT GLU (test code = 9621097986) 126 mg/dL 70-110 H Lab Interpretation (test code = Abnormal 86156-6) [facility] [id number] 05:40:00 Test Item Value Reference Range Interpretation Comments Fungus culture No growth Specimen isolate (test after 4 weeks InformationSp ecimen code = 580-1) of Source: Tissue Specimen incubation. Site: Leg: Left Lower Extremity - [facility] [id number] 05:40:00 Test Item Value Reference Range Interpretation Comments Fungus culture No growth Specimen isolate (test after 4 weeks InformationSp ecimen code = 580-1) of Source: Tissue Specimen incubation. Site: Leg: Left Lower Extremity - [facility] [id number] 05:40:00 Test Item Value Reference Range Interpretation Comments Fungus culture No growth Specimen isolate (test after 4 weeks InformationSp ecimen code = 580-1) of Source: Tissue Specimen incubation. Site: Leg: Left Lower Extremity - [facility]. Metabolic Panel (61642)2022-07-19 03:26:53 Test Item Value Reference Range Interpretation Comments NA (test code = 140 mmol/L 135-145 7418927374) K (test code = 5.3 mmol/L 3.5-5.0 H 6034715530) CL (test code = 101 mmol/L 98-108 3259518532) CO2 TOTAL (test code = 27 mmol/L 23-31 0801443458) AGAP (test code = 12 2-16 7327380740) BUN (test code = 30 mg/dL 7-23 H 4302845279) GLUCOSE (test code = 189 mg/dL 70-110 H 9554552851) CREATININE (test code = 1.24 mg/dL 0.60-1.25 0218954612) TOTAL BILI (test code = 0.4 mg/dL 0.1-1.7 2971422314) CALCIUM (test code = 9.3 mg/dL 8.6-10.6 7476973737) T PROTEIN (test code = 8.0 g/dL 6.3-8.2 1196779231) ALBUMIN (test code = 4.1 g/dL 3.5-5.0 0455951609) ALK PHOS (test code = 107 U/L 34-122 5695026474) ALTv (test code = 43 U/L 5-50 1742-6) AST(SGOT) (test code = 38 U/L 13-40 7923456826) eGFR (test code = 60.5 mL/min/1.73m2 6415086848) MOE (test code = MOE) Association of [...] tests). Lab Interpretation Abnormal (test code = 63992-1) [facility] with [id number] 03:23:09 Test Item Value Reference Range Interpretation Comments WBC (test code = 6.48 See_Comment [Automated 7275-2) message] The sy stem which generated this result transmitted reference range : 4.20 - 10.70 10*3/?L. The reference range was not used to interpret this result as normal/abnormal . RBC (test code = 4.08 See_Comment L [Automated 789-8) message] The sy [...] RDW-SD (test code = 49.0 fL 38.5-51.6 87770-7) RDW-CV (test code = 15.0 % 12.1-15.4 788-0) PLT (test code = 542 See_Comment H [Automated 777-3) message] The sy stem which generated this result transmitted reference range : 150 - 328 10*3/ ?L. The reference r maggi was not used to interpret this result as normal/abnormal . MPV (test code = 9.6 fL 9.8-13.0 L 19366-7) NRBC/100 WBC (test 0.0 See_Comment [Automat ed code = 7765690972) message] The system which generated this result transmitted reference range : 0.0 - 10.0 /100 WBCs. The refer ence range was not u sed to interpret th is result as normal/abnormal . NRBC x10^3 (test code See_Comment [Auto mated = 8878199014) message] The s ystem which generated this result transmitted reference range : 10*3/?L. The reference range was not used to interpret this result as normal/abnormal . GRAN MAT (NEUT) % 60.7 % (test code = 770-8) IMM GRAN % (test code 0.50 % = 5969380258) LYMPH % (test code = 28.2 % 736-9) MONO % (test code = 6.9 % 5905-5) EOS % (test code = 2.5 % 713-8) BASO % (test code = 1.2 % 706-2) GRAN MAT x10^3(ANC) 3.93 10*3/uL 1.99-6.95 (test code = 1036504253) IMM GRAN x10^3 (test 0.03 10*3/uL 0.00-0.06 code = 2291990708) LYMPH x10^3 (test code 1.83 10*3/uL 1.09-3.23 = 731-0) MONO x10^3 (test code 0.45 10*3/uL 0.36-1.02 = 742-7) EOS x10^3 (test code = 0.16 10*3/uL 0.06-0.53 711-2) BASO x10^3 (test code 0.08 10*3/uL 0.01-0.09 = 704-7) Lab Interpretation Abnormal (test code = 41616-5) [facility] [id number] 16:22:00 Test Item Value Reference Range Interpretation Comments POC glucose (test code = 245 mg/dL 65-100 H Ope rator Name: Marilin 07595-9) GarzaDevice ID: [id number] Lab Interpretation (test Abnormal code = 63741-4) [facility] [id number] 16:22:00 Test Item Value Reference Range Interpretation Comments POC glucose (test code = 245 mg/dL 65-100 H Ope rator Name: Marilin 29580-2) GarzaDevice ID: [id number] Lab Interpretation (test Abnormal code = 85410-5) [facility] [id number] 16:22:00 Test Item Value Reference Range Interpretation Comments POC glucose (test code = 245 mg/dL 65-100 H Ope rator Name: Marilin 72651-7) GarzaDevice ID: [id number] Lab Interpretation (test Abnormal code = 65077-8) [facility] [id number] 19:17:00 Test Item Value Reference Range Interpretation Comments IMP PCR (test NOT DETECTED Specimen Infor mationSpecimen code = [facility] 26079[facility] Tissue S2039526 07 OXA-48 PCR NOT DETECTED (test code = 8006) [facility] [id number] 19:17:00 Test Item Value Reference Range Interpretation Comments IMP PCR (test NOT DETECTED Specimen Infor mationSpecimen code = Source: [facility] n Site: 88671-2) Tissue Q5676891 07 OXA-48 PCR NOT DETECTED (test code = 8006) [facility] [id number] 19:17:00 Test Item Value Reference Range Interpretation Comments IMP PCR (test NOT DETECTED Specimen Infor mationSpecimen code = Source: [facility] n Site: 11238-3) Tissue G1898014 07 OXA-48 PCR NOT DETECTED (test code = 8006) [facility] [id number] 13:15:00 Test Item Value Reference Range Interpretation Comments Anaerobic No anaerobic Specimen culture isolate organisms InformationS pecimen (test code = isolated. [facility] Site: Leg: Left Lower Extremity - Cul ture [facility] [id number] 13:15:00 Test Item Value Reference Range Interpretation Comments Anaerobic No anaerobic Specimen culture isolate organisms InformationS pecimen (test code = isolated. Source: TissueS pecimen 07486-4) Site: Leg: Left Lower Extremity - Cul ture [facility] [id number] 13:15:00 Test Item Value Reference Range Interpretation Comments Anaerobic No anaerobic Specimen culture isolate organisms InformationS pecimen (test code = isolated. [facility] Site: Leg: Left Lower Extremity - Cul [facility]ure [facility] [id number] 14:49:00 Test Item Value Reference Range Interpretation Comments AFB stain No acid fast Specimen (test code = bacilli (AFB) InformationSpe cimen 676-7) seen. Source: TissueS pecimen Site: Leg: Left Lower Extremity - Cul ture [facility] [id number] 14:49:00 Test Item Value Reference Range Interpretation Comments AFB stain No acid fast Specimen (test code = bacilli (AFB) InformationSpe cimen 676-7) seen. Source: TissueS pecimen Site: Leg: Left Lower Extremity - Cul [facility] [id number] 14:49:00 Test Item Value Reference Range Interpretation Comments AFB stain No acid fast Specimen (test code = bacilli (AFB) InformationSpe cimen 676-7) seen. Source: TissueS pecimen Site: Leg: Left Lower Extremity - Cul [facility] [id number] 18:08:00 Test Item Value Reference Range Interpretation Comments Fungus smear No fungi Specimen (test code = observed. InformationSpec imen Source: 1443) TissueSpecimen Site: Leg: Left Lower Extr emity - Culture [facility] [id number] 18:08:00 Test Item Value Reference Range Interpretation Comments Fungus smear No fungi Specimen (test code = observed. InformationSpec imen Source: 1443) TissueSpecimen Site: Leg: Left Lower Extr emity - Culture [facility] [id number] 18:08:00 Test Item Value Reference Range Interpretation Comments Fungus smear No fungi Specimen (test code = observed. InformationSpec imen Source: 1443) TissueSpecimen Site: Leg: Left Lower Extr emity - Culture [facility] [id number] 17:14:00 Test Item Value Reference Range Interpretation Comments Gram stain Few Gram Specimen isolate (test negative rods InformationSp ecimen code = 1469) Source: [facility] Site: Leg: Left Lower Extremity - Cul ture [facility] [id number] 17:14:00 Test Item Value Reference Range Interpretation Comments Gram stain Few Gram Specimen isolate (test negative rods InformationSp ecimen code = 1469) [facility]: [facility] Site: Leg: Left Lower Extremity - Cul ture [facility] [id number] 17:14:00 Test Item Value Reference Range Interpretation Comments Gram stain Few Gram Specimen isolate (test negative rods InformationSp ecimen code = 1469) Source: TissueS [facility] Site: Leg: Left Lower Extremity - Cul [facility] [id number] 22:46:05 Test Item Value Reference Range Interpretation Comments Case number (test code = [id number]) Surgical pathology See link below for report (test code = PDF Lab Report 0589) Result status (test code This is Final Report = [id number]) for [id number] [facility] [id number] 22:46:05 Test Item Value Reference Range Interpretation Comments Case number (test code = [id number]) Surgical pathology See link below for report (test code = PDF Lab Report 2255) Result status (test code This is Final Report = [id number]) for [id number] [facility] [id number] 22:46:05 Test Item Value Reference Range Interpretation Comments Case number (test code = [id number]) Surgical pathology See link below for report (test code = PDF Lab Report 2255) Result status (test code This is Final Report = [id number]) for [id number] [facility], (w Contrast, Strain and 3D if needed)2022-05-10 21:23:23 Test Item Value Reference Interpretation Comments Range Ao Root Diameter 3.34 cm (test code = 1286594372) AoV Area, Vmax (test 3.02 cm2 >=1.5 code = 0709976136) AoV Area, VTI (test 3.07 cm2 code = 2235332913) AoV Mean PG (test 4.26 mmHg code = 5129100365) AoV Peak PG (test 6.38 mmHg code = 4294293579) AoV Vmax (test code 1.42 m/s = 5779533616) AoV VTI (test code = 0.26 m 5263566947) BSA Rashid (test code 2.11 m2 = 7191137936) BSA (test code = 2.02 m2 9315160101) IVS,d (test code = 0.84 cm 0.6-3 1610310038) IVS/LVPW,2D (test 0.98 code = 4940391782) Left Atrium 3.49 cm Dimension Anterior (test code = 9825290428) LV,d (test code = 4.74 cm 2797196443) LV EF,2D (test code 64.34 % = 2285635643) LV,s (test code = 3.36 cm 2226760145) LVOT area (test code 3.53 cm2 = 0380163645) LVOT Diam,S (test 2.12 cm code = 2691735432) LVOT Vmax (test code 1.13 m/s = 8642609569) LVOT VTI (test code 0.21 m = 2149515007) LVPWD,d (test code = 0.85 cm 0.60-1.19 4898278856) MV E A ratio (test 0.86 code = 1810997629) AoV area i VTI BSA 1.52 cm2/m2 >=0.85 Solen (test code = 4772104036) BMI (test code = 31.32 kg/m2 5736265031) E wave decelartion 89.56 See_Comment A [Automat ed time (test code = message] T he 2361496354) system which generated this result transmitted reference range : 200 msec. The reference range was not used to interpret this result as normal/abnormal . MV Peak A Quirino (test 0.88 m/s code = 4888445578) MV valve area p 1/2 8.47 cm2 method (test code = 9929037059) MV Peak E Quirino (test 0.75 m/s code = 2528963491) MV stenosis pressure 25.97 ms 1/2 time (test code = 8475729117) LVOT stroke volume 0.74 ml (test code = 2765963754) AV LVOT peak 4.69 mmHg gradient (test code = 6724110411) Ao Root Diameter 3.34 cm (test code = 1963830078) MV mean gradient 1.92 mmHg (test code = 1778223652) LV SYS VOL (test 46.16 ml 21-61 code = 5504291070) LV ANDERSON VOL (test 104.46 ml 62-150 code = 0371905725) LA area s A4C (test 17.60 cm2 code = 8035569363) LV SI Teich 2D (test 28.83 ml/m2 code = 1152576912) LV SV Teich 2D (test 58.30 ml code = 8067852541) LV Vol s Teich PSAX 46.16 ml (test code = 8433976634) LVOT CI (test code = 3.53 l/min/m2 0489550922) LVOT CO (test code = 7.14 l/min 6222424817) LVOT HR for LVOT CO 98.89 bpm (test code = 9227416049) LVOT SI (test code = 35.72 ml/m2 2588437914) MR peak grad (test 3.00 mmHg code = 2871316239) MV Vmax (test code = 0.87 m 0350916649) MV VTI Tips (test 0.14 m code = 1487236353) BSA Haycock (test 2.10 m2 code = 9645263374) AoV Vmn (test code = 0.97 m/s 1661316026) IVS s 2D (test code 1.17 cm = 6091812382) LV FS Teich 2D (test 29.09 code = 6061376135) MV AE ratio (test 1.17 code = 8836349252) LV FS Cube 2D (test 29.09 code = 7209970957) LVOT Vmn (test code 0.75 = 2135726842) Pt Size (test code = 170.18 9401028177) Pt Wt (test code = 90.72 3993017992) Aov area Vmn (test 3.05 cm2 code = 1308966161) LVOT mean grad (test 2.57 mmHg code = 3738092193) 85 of MPHR (test 140.25 code = 9701703798) AoV area I VMN bsa 1.51 cm2/m2 (test code = 2171834341) Calc MPHR (test code 165.01 bpm = 8715262576) IVS pct thck PLAX 39.76 % (test code = 3304142526) LV SI Cube 2D (test 33.91 ml/m2 code = 5188608181) LV SV Cube 2D (test 68.57 ml code = 3021306133) LV vol d cube 2D 106.56 ml (test code = 1479895264) LV vol s cube 2D 38.00 ml (test code = 0708148210) LVPW pct thck PLAX 35.24 % (test code = 6222538448) LVPW s PLAX (test 1.16 cm code = 8772657373) MV Decel slope (test 8.38 m/s2 code = 4688704621) Pred Exer Dur R1 9.48 (test code = 6014624563) Pred METS R1 (test 9.75 code = 3401549204) LA Vol MOD A4C (test 46.56 ml code = 3339718042) Velocity Ratio 0.80 m/s (V1/V2) (test code = 4689) EF (test code = 56 % 2186639613) E/A ratio (test code 0.85 = 8155068985) LVOT VTI (CM) (test 21.00 cm code = 5715493939) MOE (test code = MOE) Left Ventricle: Left ventricle size is normal. Mildly increased wall thickness. Findings consistent with borderline concentric hypertrophy. Normal wall motion. Normal systolic function with a visually estimated EF of 55 - 60%. Grade I (impaired relaxation) diastolic dysfunction. Left Atrium: Left atrium is mildly dilated. Left VentricleLeft ventricle size is normal. Mildly increased wall thickness. Findings consistent with borderline concentric hypertrophy. Normal wall motion. Normal systolic function with a visually estimated EF of 55 - 60%. Grade I (impaired relaxation) diastolic dysfunction.Right VentricleRight ventricle size is normal. Normal systolic function.Left AtriumLeft atrium is mildly dilated.Right AtriumRight atrium size is normal.Mitral ValveValve structure is normal. No restricted motion. Trace valvular regurgitation. No stenosis.Tricuspid ValveValve structure is normal. No restricted motion. Trace valvular regurgitation. No stenosis.Aortic ValveValve structure appears tricuspid. Mildly sclerotic cusps. Mildly calcified cusps. No restricted motion. No significant valvular regurgitation. No stenosis.Pulmonic ValveNot well visualized. Valve structure is normal. Unable to assess valvular regurgitation. No stenosis.Pericardium There is no pericardial effusion present.Wall Scoring BaselineScore Index: 1.00The left ventricular wall motion is normal. Lab Interpretation Abnormal (test code = 76613-7) [facility], (w Contrast, Strain and 3D if needed)2022-05-10 21:23:23 Test Item Value Reference Interpretation Comments Range Ao Root Diameter 3.34 cm (test code = 7218516349) AoV Area, Vmax (test 3.02 cm2 >=1.5 code = 2242110692) AoV Area, VTI (test 3.07 cm2 code = 1968629675) AoV Mean PG (test 4.26 mmHg code = 4458919272) AoV Peak PG (test 6.38 mmHg code = 2420222632) AoV Vmax (test code 1.42 m/s = 3653473621) AoV VTI (test code = 0.26 m 3264921012) BSA Rashid (test code 2.11 m2 = 6469373779) BSA (test code = 2.02 m2 7950882095) IVS,d (test code = 0.84 cm 0.6-8 1967845068) IVS/LVPW,2D (test 0.98 code = 0534612397) Left Atrium 3.49 cm Dimension Anterior (test code = 9088479011) LV,d (test code = 4.74 cm 9889451491) LV EF,2D (test code 64.34 % = 1825551965) LV,s (test code = 3.36 cm 6642690420) LVOT area (test code 3.53 cm2 = 0732111801) LVOT Diam,S (test 2.12 cm code = 9944530129) LVOT Vmax (test code 1.13 m/s = 1010404642) LVOT VTI (test code 0.21 m = 3643262747) LVPWD,d (test code = 0.85 cm 0.60-1.19 7561846729) MV E A ratio (test 0.86 code = 4813067142) AoV area i VTI BSA 1.52 cm2/m2 >=0.85 Solen (test code = 9614524233) BMI (test code = 31.32 kg/m2 2894725800) E wave decelartion 89.56 See_Comment A [Automat ed time (test code = message] T he 3066655839) system which generated this result transmitted reference range : 200 msec. The reference range was not used to interpret this result as normal/abnormal . MV Peak A Quirino (test 0.88 m/s code = 8354923070) MV valve area p 1/2 8.47 cm2 method (test code = 3111046343) MV Peak E Quirino (test 0.75 m/s code = 7213010138) MV stenosis pressure 25.97 ms 1/2 time (test code = 6665431861) LVOT stroke volume 0.74 ml (test code = 9624222378) AV LVOT peak 4.69 mmHg gradient (test code = 1989110157) Ao Root Diameter 3.34 cm (test code = 1942589795) MV mean gradient 1.92 mmHg (test code = 3328060873) LV SYS VOL (test 46.16 ml 21-61 code = 0520595932) LV ANDERSON VOL (test 104.46 ml 62-150 code = 8979362518) LA area s A4C (test 17.60 cm2 code = 0459640421) LV SI Teich 2D (test 28.83 ml/m2 code = 3231730134) LV SV Teich 2D (test 58.30 ml code = 0509983624) LV Vol s Teich PSAX 46.16 ml (test code = 8920026992) LVOT CI (test code = 3.53 l/min/m2 1953922416) LVOT CO (test code = 7.14 l/min 9555514010) LVOT HR for LVOT CO 98.89 bpm (test code = 5195936068) LVOT SI (test code = 35.72 ml/m2 1773431237) MR peak grad (test 3.00 mmHg code = 5392473917) MV Vmax (test code = 0.87 m 6472171151) MV VTI Tips (test 0.14 m code = 2030005853) BSA Haycock (test 2.10 m2 code = 3542003484) AoV Vmn (test code = 0.97 m/s 5765692497) IVS s 2D (test code 1.17 cm = 3771160310) LV FS Teich 2D (test 29.09 code = 3013702031) MV AE ratio (test 1.17 code = 3161389039) LV FS Cube 2D (test 29.09 code = 7184946917) LVOT Vmn (test code 0.75 = 3314735720) Pt Size (test code = 170.18 5182430523) Pt Wt (test code = 90.72 2147108919) Aov area Vmn (test 3.05 cm2 code = 8984470594) LVOT mean grad (test 2.57 mmHg code = 7363401505) 85 of MPHR (test 140.25 code = 0782705265) AoV area I VMN bsa 1.51 cm2/m2 (test code = 9623296963) Calc MPHR (test code 165.01 bpm = 5955859371) IVS pct thck PLAX 39.76 % (test code = 1847815505) LV SI Cube 2D (test 33.91 ml/m2 code = 9796083700) LV SV Cube 2D (test 68.57 ml code = 7145652517) LV vol d cube 2D 106.56 ml (test code = 0306139459) LV vol s cube 2D 38.00 ml (test code = 7955108374) LVPW pct thck PLAX 35.24 % (test code = 2461254253) LVPW s PLAX (test 1.16 cm code = 6002389406) MV Decel slope (test 8.38 m/s2 code = 3509235347) Pred Exer Dur R1 9.48 (test code = 2898746198) Pred METS R1 (test 9.75 code = 1791945504) LA Vol MOD A4C (test 46.56 ml code = 2713475807) Velocity Ratio 0.80 m/s (V1/V2) (test code = 4689) EF (test code = 56 % 4308240210) E/A ratio (test code 0.85 = 3926591918) LVOT VTI (CM) (test 21.00 cm code = 5926330359) MOE (test code = MOE) Left Ventricle: Left ventricle size is normal. Mildly increased wall thickness. Findings consistent with borderline concentric hypertrophy. Normal wall motion. Normal systolic function with a visually estimated EF of 55 - 60%. Grade I (impaired relaxation) diastolic dysfunction. Left Atrium: Left atrium is mildly dilated. Left VentricleLeft ventricle size is normal. Mildly increased wall thickness. Findings consistent with borderline concentric hypertrophy. Normal wall motion. Normal systolic function with a visually estimated EF of 55 - 60%. Grade I (impaired relaxation) diastolic dysfunction.Right VentricleRight ventricle size is normal. Normal systolic function.Left AtriumLeft atrium is mildly dilated.Right AtriumRight atrium size is normal.Mitral ValveValve structure is normal. No restricted motion. Trace valvular regurgitation. No stenosis.Tricuspid ValveValve structure is normal. No restricted motion. Trace valvular regurgitation. No stenosis.Aortic ValveValve structure appears tricuspid. Mildly sclerotic cusps. Mildly calcified cusps. No restricted motion. No significant valvular regurgitation. No stenosis.Pulmonic ValveNot well visualized. Valve structure is normal. Unable to assess valvular regurgitation. No stenosis.Pericardium There is no pericardial effusion present.Wall Scoring BaselineScore Index: 1.00The left ventricular wall motion is normal. Lab Interpretation Abnormal (test code = 55402-3) [facility] YygublvsCUMT-DqO-3 (COVID-19) RNA [Presence] in Respiratory specimen by LEILANI with probe [id number] 00:11:33 Test Item Value Reference Range Interpretation Comments SARS-CoV-2 (COVID-19) RNA Not detected [Presence] in Respiratory specimen by LEILANI with probe detection (test code = 42465-7) Whether patient is employed in a Unknown healthcare setting (test code = 40784-7) Whether the patient has symptoms Unknown related to condition of interest (test code = 34170-1) Whether the patient was Unknown hospitalized for condition of interest (test code = 13946-0) Whether the patient was admitted Unknown to intensive care unit (ICU) for condition of interest (test code = 94832-6) Whether patient resides in a Unknown congregate care setting (test code = 84741-1) status (test code = Unknown 47926-1) Date and time of symptom onset Unknown (test code = 41325-0) [facility] [id number] 20:52:15 Test Item Value Reference Range Interpretation Comments BSA (test code = 2.03 m2 8939732468) BSA Rashid (test code 2.12 m2 = 7985687557) BSA Haycock (test 2.11 m2 code = 8055822624) Pred METS R1 (test 9.76 code = 7491267264) Pred Exer Dur R1 9.48 (test code = 2581699409) Calc MPHR (test 165.06 bpm code = 6625384710) 85 of MPHR (test 140.30 code = 2450028622) Pt Wt (test code = 91.17 8985941306) Pt Size (test code 170.18 = 9269866806) BMI (test code = 31.48 kg/m2 6918094794) MOE (test code = MOE) Left Ventricle: Normal wall motion. Normal systolic function with a visually estimated EF of 55 - 60%. Mitral Valve: Mild valvular regurgitation. Aorta: Small atherosclerotic plaque of the aortic arch. Prior study: There were no significant changes noted when compared to the prior TTE study. Indications for the procedure include: Atrial Fibrillation. Procedure DetailsThe risks, benefits, complications, treatment options, and expected outcomes were discussed with the patient. The patient and/or family concurred with the proposed plan, giving informed consent. Patient was brought to the procedure area. He was further sedated with anesthesia management . After adequate sedation was achieved, direct current cardioversion was performed with 200J. First attempt was successful at restoring sinus rhythm. ComplicationsNone; patient tolerated the procedure well.Left VentricleLeft ventricle size is normal. Normal wall motion. Normal systolic function with a visually estimated EF of 55 - 60%.Right VentricleRight ventricle size is normal. Normal systolic function.Left AtriumLeft atrium size is normal. No ASD present. No PFO present viewable by color Doppler and agitated saline. No thrombus seen in the left atrial cavity. No thrombus seen in the left atrial appendage. The left atrial appendage emptying velocity was normal by Doppler.Right AtriumRight atrium size is normal.Mitral ValveValve structure is normal. Mild valvular regurgitation. No stenosis.Tricuspid ValveValve structure is normal. Trace valvular regurgitation. No stenosis.Aortic ValveValve structure is normal.Pulmonic ValveValve structure is normal. No significant valvular regurgitation. No stenosis. Pulmonary artery was not well visualized.PericardiumTher e is a trivial localized pericardial effusion present adjacent to the right ventricle.AortaSmall atherosclerotic plaque of the aortic arch.Study DetailsA complete Fahad was performed using complete 2D. Saline (bubble) contrast was used during the study. The probe was inserted by the loan inspector. There was no probe insertion difficulty. Anesthesia was given. Refer to anesthesia note. The patient tolerated the procedure well and recovered without any complications.Prior StudyThere were no significant changes noted when compared to the prior TTE study. [facility] [id number] 20:52:15 Test Item Value Reference Range Interpretation Comments BSA (test code = 2.03 m2 0029449744) BSA Rashid (test code 2.12 m2 = 1371509506) BSA Haycock (test 2.11 m2 code = 0729372816) Pred METS R1 (test 9.76 code = 9867258220) Pred Exer Dur R1 9.48 (test code = 1623040116) Calc MPHR (test 165.06 bpm code = 0135487364) 85 of MPHR (test 140.30 code = 6331298854) Pt Wt (test code = 91.17 8497919866) Pt Size (test code 170.18 = 5952426877) BMI (test code = 31.48 kg/m2 3707513462) MOE (test code = MOE) Left Ventricle: Normal wall motion. Normal systolic function with a visually estimated EF of 55 - 60%. Mitral Valve: Mild valvular regurgitation. Aorta: Small atherosclerotic plaque of the aortic arch. Prior study: There were no significant changes noted when compared to the prior TTE study. Indications for the procedure include: Atrial Fibrillation. Procedure DetailsThe risks, benefits, complications, treatment options, and expected outcomes were discussed with the patient. The patient and/or family concurred with the proposed plan, giving informed consent. Patient was brought to the procedure area. He was further sedated with anesthesia management . After adequate sedation was achieved, direct current cardioversion was performed with 200J. First attempt was successful at restoring sinus rhythm. ComplicationsNone; patient tolerated the procedure well.Left VentricleLeft ventricle size is normal. Normal wall motion. Normal systolic function with a visually estimated EF of 55 - 60%.Right VentricleRight ventricle size is normal. Normal systolic function.Left AtriumLeft atrium size is normal. No ASD present. No PFO present viewable by color Doppler and agitated saline. No thrombus seen in the left atrial cavity. No thrombus seen in the left atrial appendage. The left atrial appendage emptying velocity was normal by Doppler.Right AtriumRight atrium size is normal.Mitral ValveValve structure is normal. Mild valvular regurgitation. No stenosis.Tricuspid ValveValve structure is normal. Trace valvular regurgitation. No stenosis.Aortic ValveValve structure is normal.Pulmonic ValveValve structure is normal. No significant valvular regurgitation. No stenosis. Pulmonary artery was not well visualized.PericardiumTher e is a trivial localized pericardial effusion present adjacent to the right ventricle.AortaSmall atherosclerotic plaque of the aortic arch.Study DetailsA complete Fahad was performed using complete 2D. Saline (bubble) contrast was used during the study. The probe was inserted by the loan inspector. There was no probe insertion difficulty. Anesthesia was given. Refer to anesthesia note. The patient tolerated the procedure well and recovered without any complications.Prior StudyThere were no significant changes noted when compared to the prior TTE study. [facility] myocardial [id number] 21:20:55 Test Item Value Reference Range Interpretation Comments Target HR (test 166.00 bpm code = 2240054187) Resting HR (test 99 BPM code = 5429639541) Resting BP (test 112/70 mmHg code = 0389960308) O2 sat rest (test 99 % code = 2914066248) Post Peak HR (test 113 bpm code = 9331180979) Percent HR (test 68.07 % code = 2285336819) Post Peak BP (test 112/70 mmHg code = 9200080929) O2 sat peak (test 98 % code = 6108922546) Nuc Stress EF (test 63 % code = 7787537083) Radiology Study observation (narrative) (test code = 98422-7) MOE (test code = MOE) Conclusion: Abnormal myocardial perfusion. Normal systolic function. Post-stress ejection fraction is 63%. Perfusion Defect: There is a left ventricular perfusion defect that is small in size with moderate reduction in uptake present in the apical anterior and apex location(s) that is reversible. Defect is consistent with a small area of ischemia. No significant myocardial infarction noted. Gated Stress Function: Left ventricular function post-stress is normal. Post-stress ejection fraction is 63%. No regional wall motion abnormalities noted. The stress end diastolic cavity size is normal. Stress ECG: Arrhythmias during stress: atrial fibrillation. There is no prior study available for comparison. Resting ECGResting ECG shows non-specific ST-segment changes. The ECG shows atrial fibrillation.Stress FindingsThe patient and had a maximal HR of 68.07% ( BPM of max predicted heart rate) METS. The patient reached the end of the protocol.Stress ECGNon-specific ST changes were noted. Arrhythmias during stress: atrial fibrillation.Isotope AdministrationThe isotope used for nuclear imaging was technetium tetrofosmin. The intravenous injection was in the left antecubital. Images performed at rest after an injection of 11 mCi. The resting administration time was at 10:07 HUMAN ANATOMY TEACHER on 04/17/2022. Resting images obtained at 11:22 HUMAN ANATOMY TEACHER. Images performed at stress after an injection of 30.5 mCi. The stress administration time was at 12:20 HUMAN ANATOMY TEACHER on 04/17/2022. Stress images obtained at 13:36 HUMAN ANATOMY TEACHER.Nuclear Study QualityA perfusion 1-day rest/stress protocol was performed.Perfusion DefectThere is a left ventricular perfusion defect that is small in size with moderate reduction in uptake present in the apical anterior and apex location(s) that is reversible. Defect is consistent with a small area of ischemia. No significant myocardial infarction notedStress Function CommentsLeft ventricular function post-stress is normal. Post-stress ejection fraction is 63%. No regional wall motion abnormalities noted. The stress end diastolic cavity size is normal.Stress Combined ConclusionAbnormal myocardial perfusion. Normal systolic function. Post-stress ejection fraction is 63%.Stress Post ImpressionThe test was indeterminate for ischemia.Nuclear Prior StudyThere is no prior study available for comparison.Perfusion Scoring StressSummed Score: 4 Percent Normal: 5.88%Moderate count reduction in the following segments: apical anterior and apex.Other segments could not be evaluated.Perfusion Scores: SRS Score: N/A Percentage Abnormal: N/APerfusion Scores: SSS Score: 4 Percentage Abnormal: 5.88%Perfusion Scores: SDS Score: N/A Percentage Abnormal: N/A [facility] myocardial [id number] 21:20:55 Test Item Value Reference Range Interpretation Comments Target HR (test 166.00 bpm code = 4686310763) Resting HR (test 99 BPM code = 4262160912) Resting BP (test 112/70 mmHg code = 6255671936) O2 sat rest (test 99 % code = 9129082318) Post Peak HR (test 113 bpm code = 2402711532) Percent HR (test 68.07 % code = 3262366355) Post Peak BP (test 112/70 mmHg code = 9122669975) O2 sat peak (test 98 % code = 7053149412) Nuc Stress EF (test 63 % code = 6248015382) Radiology Study observation (narrative) (test code = 93667-3) MOE (test code = MOE) Conclusion: Abnormal myocardial perfusion. Normal systolic function. Post-stress ejection fraction is 63%. Perfusion Defect: There is a left ventricular perfusion defect that is small in size with moderate reduction in uptake present in the apical anterior and apex location(s) that is reversible. Defect is consistent with a small area of ischemia. No significant myocardial infarction noted. Gated Stress Function: Left ventricular function post-stress is normal. Post-stress ejection fraction is 63%. No regional wall motion abnormalities noted. The stress end diastolic cavity size is normal. Stress ECG: Arrhythmias during stress: atrial fibrillation. There is no prior study available for comparison. Resting ECGResting ECG shows non-specific ST-segment changes. The ECG shows atrial fibrillation.Stress FindingsThe patient and had a maximal HR of 68.07% ( BPM of max predicted heart rate) METS. The patient reached the end of the protocol.Stress ECGNon-specific ST changes were noted. Arrhythmias during stress: atrial fibrillation.Isotope AdministrationThe isotope used for nuclear imaging was technetium tetrofosmin. The intravenous injection was in the left antecubital. Images performed at rest after an injection of 11 mCi. The resting administration time was at 10:07 HUMAN ANATOMY TEACHER on 04/17/2022. Resting images obtained at 11:22 HUMAN ANATOMY TEACHER. Images performed at stress after an injection of 30.5 mCi. The stress administration time was at 12:20 HUMAN ANATOMY TEACHER on 04/17/2022. Stress images obtained at 13:36 HUMAN ANATOMY TEACHER.Nuclear Study QualityA perfusion 1-day rest/stress protocol was performed.Perfusion DefectThere is a left ventricular perfusion defect that is small in size with moderate reduction in uptake present in the apical anterior and apex location(s) that is reversible. Defect is consistent with a small area of ischemia. No significant myocardial infarction notedStress Function CommentsLeft ventricular function post-stress is normal. Post-stress ejection fraction is 63%. No regional wall motion abnormalities noted. The stress end diastolic cavity size is normal.Stress Combined ConclusionAbnormal myocardial perfusion. Normal systolic function. Post-stress ejection fraction is 63%.Stress Post ImpressionThe test was indeterminate for ischemia.Nuclear Prior StudyThere is no prior study available for comparison.Perfusion Scoring StressSummed Score: 4 Percent Normal: 5.88%Moderate count reduction in the following segments: apical anterior and apex.Other segments could not be evaluated.Perfusion Scores: SRS Score: N/A Percentage Abnormal: N/APerfusion Scores: SSS Score: 4 Percentage Abnormal: 5.88%Perfusion Scores: SDS Score: N/A Percentage Abnormal: N/A [facility] [id number] 21:15:16 Test Item Value Reference Range Interpretation Comments Resting HR (test code 99 = 5719768577) Resting BP (test code 112&70 = 7270069412) Peak MET Achieved 1.0 (test code = 4066894228) Protocol Name (test LEXISCAN code = 6094553975) Time in Exercise Phase 00:00:53 (test code = 5657242672) Max Systolic BP (test 112 code = 5863949553) Max Diastolic BP (test 70 code = 6269638495) Max Heart Rate (test 113 code = 6855059300) Max Predicted Heart 166 Rate (test code = 7769167314) Target HR Formula (220 - Age)*100% (test code = 0919494251) Test Indication (test code = 2136108361) Arrhy During Ex (test none code = 3792325933) ECG Interp Before EX atrial fibrillation (test code = 6881725918) ECG Interp During Ex NONSPECIFIC (test code = 7273753481) Ex Summary Comment Myoview to follow (test code = 4066355875) Chest Pain Statement none (test code = 7999189577) Overall HR Response to PHARMACOLOGIC STRESS Exercise (test code = 3309473087) Overall BP Response To normal resting BP - Exercise (test code = appropriate response 0893981807) Reason for Termination Protocol completed (test code = 5532498465) Stress Test Impression MYOVIEW TO (test code = FOLLOW--Electronically 3006207416) Signed By Jaspreet Cannon MD ([id number]) on 04/18/2022 3:15:13 PM [facility] stress [id number] 21:15:16 Test Item Value Reference Range Interpretation Comments Resting HR (test code 99 = 0844156081) Resting BP (test code 112&70 = 4327040909) Peak MET Achieved 1.0 (test code = 8022638420) Protocol Name (test LEXISCAN code = 5893646971) Time in Exercise Phase 00:00:53 (test code = 8589912273) Max Systolic BP (test 112 code = 1666780826) Max Diastolic BP (test 70 code = 4852442717) Max Heart Rate (test 113 code = 7872649690) Max Predicted Heart 166 Rate (test code = 7733115840) Target HR Formula (220 - Age)*100% (test code = 0934388531) Test Indication (test code = 4076851431) Arrhy During Ex (test none code = 3275534035) ECG Interp Before EX atrial fibrillation (test code = 4735684461) ECG Interp During Ex NONSPECIFIC (test code = 5761404292) Ex Summary Comment Myoview to follow (test code = 1822065897) Chest Pain Statement none (test code = 2986795152) Overall HR Response to PHARMACOLOGIC STRESS Exercise (test code = 9096884308) Overall BP Response To normal resting BP - Exercise (test code = appropriate response 2112873851) Reason for Termination Protocol completed (test code = 0981408123) Stress Test Impression MYOVIEW TO (test code = FOLLOW--Electronically 6258652578) Signed By Jaspreet Cannon MD ([id number]) on 04/18/2022 3:15:13 PM [facility] (w Contrast, Strain and 3D if needed)2022-04-14 21:07:42 Test Item Value Reference Interpretation Comments Range EF (test code = 59 % 52-72 3330850488) LV EF,BP (test code 57.09 % = 1543951853) IVS,d (test code = 1.13 cm 0.6-1 A 2005282042) IVS s 2D (test code 1.32 cm = 2167379861) LVPWD,d (test code 1.09 cm 0.60-1.19 = 7968938063) LVPW s PLAX (test 1.37 cm code = 8848897233) LV,s (test code = 3.04 cm 6130799492) LVOT Diam,S (test 2.09 cm code = 1867833826) LV ANDERSON VOL (test 88.75 ml 62-150 code = 2870415892) LV SYS VOL (test 36.02 ml 21-61 code = 6832711903) LV Vol,d A2C (test 82.11 mL code = 5985037081) LV Vol,s A2C (test 34.60 mL code = 9498945254) LV Vol,d A4C (test 81.73 ml code = 6448805595) LV Vol,s A4C (test 37.26 ml code = 6976642843) MV Peak E Quirino (test 0.89 m/s code = 2841684269) MV Peak A Quirino (test 0.25 m/s code = 3152500555) E/A ratio (test 3.56 <=0.8 A code = 0467264776) E wave decelartion 177.02 See_Comment A [Automat ed time (test code = message] T he 9491995258) system which generated this result transmitted reference range: 200 msec. The reference range was not used to interpret this result as normal/abnormal . LV Systolic Volume 17.13 mL/m2 11-31 Index (test code = 2978306061) LV Diastolic Volume 40.65 mL/m2 34-74 Index (test code = 3348145200) LV,d (test code = 4.42 cm 2384286132) IVS/LVPW,2D (test 1.03 code = 3818169525) LV EF,2D (test code 67.66 % = 2052108297) LV FS Cube 2D (test 31.36 code = 6937168133) LV FS Teich 2D 31.36 (test code = 1455638102) LV SI Teich 2D 26.07 ml/m2 (test code = 4012948747) LV SV Teich 2D 52.72 ml (test code = 3042768203) LV Vol s Teich PSAX 36.02 ml (test code = 4897690708) LVOT stroke volume 0.48 cm3 (test code = 9745537229) Left Atrium 3.37 cm <=4 Dimension Anterior (test code = 1379730588) LA Vol MOD A4C 44.03 ml (test code = 1870108712) LA area s A4C (test 16.42 cm2 code = 2259376225) LVOT area (test 3.43 cm2 code = 4755585355) LVOT Vmax (test 0.86 m/s code = 0470549916) AoV Mean PG (test 3.31 See_Comment [Automate d code = 9291224492) message] The system which generated this result transmitted reference range: 20 mmHg. The reference range was not used to interpret this result as normal/abnormal . AoV Peak PG (test 4.75 mmHg code = 8564218000) AV LVOT peak 2.89 mmHg gradient (test code = 9707910002) AoV area i VTI BSA 1.33 cm2/m2 >=0.85 Solen (test code = 0245874721) AoV Area, Vmax 2.67 cm2 >=1.5 (test code = 9474439276) LVOT VTI (CM) (test 14.00 cm code = 6900130006) AoV Vmax (test code 1.11 m/s = 8351912146) AoV Vmn (test code 0.88 m/s = 1650246994) AoV Area, VTI (test 2.69 cm2 code = 9753476905) LVOT CO (test code 5.03 l/min = 5205050042) LVOT CI (test code 2.49 l/min/m2 = 4524465717) LVOT HR for LVOT CO 113.01 bpm (test code = 0934927835) LVOT SI (test code 22.01 ml/m2 = 5488336165) Velocity Ratio 0.77 m/s (V1/V2) (test code = 4689) MV stenosis 41.13 ms <=150 pressure 1/2 time (test code = 8530218650) MV E A ratio (test 6.25 code = 9624433137) MV valve area p 1/2 5.35 cm2 method (test code = 4615022388) E prime lat (test 0.04 code = 1592664246) E sherry sept (test 0.03 code = 3362382715) RVOT Vmax (test 0.87 m/s code = 3000580450) PV Pk Grad (test 2.43 See_Comment [Automated code = 1256606666) message] The system which generated this result transmitted reference range: 36 mmHg. The reference range was not used to interpret this result as normal/abnormal . RVOT pk grad (test 3.02 mmHg code = 0214158135) PV VMAX (test code 0.78 m/s <=3 = 1768021017) Ao Root Diameter 2.77 cm <=3.99 (test code = 5139580403) Ao Root Diameter 2.77 cm (test code = 2242139002) Ascending aorta 2.95 cm (test code = 8148657686) BSA (test code = 2.02 m2 4751343449) BSA Rashid (test code 2.11 m2 = 9479144142) BSA Haycock (test 2.10 m2 code = 6542075841) Pred METS R1 (test 9.76 code = 3505002073) Pred Exer Dur R1 9.49 (test code = 9331738535) MV Decel slope 5.02 m/s2 (test code = 6467657811) LVPW pct thck PLAX 25.29 % (test code = 7287178405) LV vol s cube 2D 27.97 ml (test code = 8029373890) LV vol d cube 2D 86.49 ml (test code = 6415208499) LV SV Cube 2D (test 58.52 ml code = 0995881225) LV SI Cube 2D (test 28.94 ml/m2 code = 4076754614) IVS pct thck PLAX 16.96 % (test code = 7153059115) Calc MPHR (test 165.08 bpm code = 8373343277) AoV area I VMN bsa 1.20 cm2/m2 (test code = 1532144217) 85 of MPHR (test 140.32 code = 4620566802) RVOT VTI (test code 0.14 m = 8425695672) RVOT Vmn (test code 0.59 m/s = 1587262798) RVOT mean grad 1.54 mmHg (test code = 3571340811) LVOT mean grad 1.67 mmHg (test code = 5362185789) Aov area Vmn (test 2.42 cm2 code = 6523755418) Pt Wt (test code = 90.72 8966836140) Pt Size (test code 170.18 = 4148366058) MV AE ratio (test 0.16 code = 0508765989) LVOT Vmn (test code 0.61 = 2634585283) PV Vmn (test code = 17.84 m/s 4381945496) LV Vol Index s 41.57 ml/m2 bpmod BSA Jean Claude (test code = 1909739435) LV SI MOD BP BSA 23.73 ml/m2 Solen (test code = 9517542592) BMI (test code = 31.32 kg/m2 0138191669) LV Vol,s BP (test 36.07 nl code = 6641312452) LV Vol,d BP (test 84.05 ml code = 6743189206) LV SV,BP (test code 47.99 % = 5737474666) LV SV,A4C (test 44.47 % code = 0572595497) LV SV,A2C (test 47.51 % code = 4909703618) Gordo Ross,s A4C 6.78 cm (test code = 7984213707) Gordo Ross,s A2C 6.94 cm (test code = 9140959317) Gordo Ross,d A4C 7.48 cm (test code = 0104883138) Gordo Ross,d A2C 7.91 cm (test code = 7379999152) LV EF,A4C (test 54.41 % code = 4094535890) LV EF,A2C (test 57.86 % code = 7090885468) AoV VTI (test code 0.16 m = 7238608730) LVOT VTI (test code 0.14 m = 6091615862) MOE (test code = MOE) Left Ventricle: Findings consistent with mild concentric hypertrophy. Regional wall motion abnormality not seen but can not be completely excluded. Normal systolic function with a visually estimated EF of 60 - 65%. No hemodynamically significant valvular stenosis or regurgitation. Left VentricleFindings consistent with mild concentric hypertrophy. Regional wall motion abnormality not seen but can not be completely excluded. Normal systolic function with a visually estimated EF of 60 - 65%. Unable to assess diastolic function due to arrhythmia.Right VentricleRight ventricle size is normal. Normal systolic function.Left AtriumLeft atrium size is normal.Right AtriumRight atrium size is normal.IVC/SVCIVC diameter is less than or equal to 21 mm and decreases greater than 50% during inspiration; therefore the estimated right atrial pressure is normal (~3 mmHg).Mitral ValveNot well visualized. Trace valvular regurgitation. No stenosis.Tricuspid ValveTrace valvular regurgitation. Unable to assess PA systolic pressure due to lack of significant tricuspid regurgitant jet .Aortic ValveNot well visualized. No significant valvular regurgitation. No stenosis.Pulmonic ValveNot well visualized. Trace valvular regurgitation.Pericard iumThere is no pericardial effusion present.AortaNormal sized aortic root and ascending aorta.Study DetailsStudy quality was fair. A complete 2D, color flow Doppler and spectral Doppler echocardiogram was performed. Lumason ultrasound enhancing agent used. Patient exhibited atrial fibrillation. Technical difficulties due to patient's clinical status. Lab Interpretation Abnormal (test code = 22492-5) [facility], (w Contrast, Strain and 3D if needed)2022-04-14 21:07:42 Test Item Value Reference Interpretation Comments Range EF (test code = 59 % 52-72 1235428154) LV EF,BP (test code 57.09 % = 1833945927) IVS,d (test code = 1.13 cm 0.6-1 A 7942829549) IVS s 2D (test code 1.32 cm = 3294499359) LVPWD,d (test code 1.09 cm 0.60-1.19 = 7218889733) LVPW s PLAX (test 1.37 cm code = 1600912080) LV,s (test code = 3.04 cm 2796350426) LVOT Diam,S (test 2.09 cm code = 3710910777) LV ANDERSON VOL (test 88.75 ml 62-150 code = 8396613440) LV SYS VOL (test 36.02 ml 21-61 code = 8167131953) LV Vol,d A2C (test 82.11 mL code = 2784489794) LV Vol,s A2C (test 34.60 mL code = 1592421160) LV Vol,d A4C (test 81.73 ml code = 3068734924) LV Vol,s A4C (test 37.26 ml code = 6905097165) MV Peak E Quirino (test 0.89 m/s code = 8373595517) MV Peak A Quirino (test 0.25 m/s code = 5226090615) E/A ratio (test 3.56 <=0.8 A code = 2009678576) E wave decelartion 177.02 See_Comment A [Automat ed time (test code = message] T he 8995382589) system which generated this result transmitted reference range: 200 msec. The reference range was not used to interpret this result as normal/abnormal . LV Systolic Volume 17.13 mL/m2 11-31 Index (test code = 4114093230) LV Diastolic Volume 40.65 mL/m2 34-74 Index (test code = 7678613211) LV,d (test code = 4.42 cm 3936515894) IVS/LVPW,2D (test 1.03 code = 7157582956) LV EF,2D (test code 67.66 % = 4496653761) LV FS Cube 2D (test 31.36 code = 4053148034) LV FS Teich 2D 31.36 (test code = 0261053746) LV SI Teich 2D 26.07 ml/m2 (test code = 7598141062) LV SV Teich 2D 52.72 ml (test code = 1839610101) LV Vol s Teich PSAX 36.02 ml (test code = 1357958730) LVOT stroke volume 0.48 cm3 (test code = 2576455380) Left Atrium 3.37 cm <=4 Dimension Anterior (test code = 3001034604) LA Vol MOD A4C 44.03 ml (test code = 2044475587) LA area s A4C (test 16.42 cm2 code = 4674568326) LVOT area (test 3.43 cm2 code = 1866057953) LVOT Vmax (test 0.86 m/s code = 9458446621) AoV Mean PG (test 3.31 See_Comment [Automate d code = 9837706927) message] The system which generated this result transmitted reference range: 20 mmHg. The reference range was not used to interpret this result as normal/abnormal . AoV Peak PG (test 4.75 mmHg code = 3385786732) AV LVOT peak 2.89 mmHg gradient (test code = 2472590163) AoV area i VTI BSA 1.33 cm2/m2 >=0.85 Solen (test code = 0841922207) AoV Area, Vmax 2.67 cm2 >=1.5 (test code = 4070997328) LVOT VTI (CM) (test 14.00 cm code = 2891858125) AoV Vmax (test code 1.11 m/s = 0849069487) AoV Vmn (test code 0.88 m/s = 9426470733) AoV Area, VTI (test 2.69 cm2 code = 8965532388) LVOT CO (test code 5.03 l/min = 6008949684) LVOT CI (test code 2.49 l/min/m2 = 5700591361) LVOT HR for LVOT CO 113.01 bpm (test code = 5925976979) LVOT SI (test code 22.01 ml/m2 = 2655484541) Velocity Ratio 0.77 m/s (V1/V2) (test code = 4689) MV stenosis 41.13 ms <=150 pressure 1/2 time (test code = 9554551960) MV E A ratio (test 6.25 code = 3372354078) MV valve area p 1/2 5.35 cm2 method (test code = 3385016177) E prime lat (test 0.04 code = 1239249363) E sherry sept (test 0.03 code = 6525440723) RVOT Vmax (test 0.87 m/s code = 0400081490) PV Pk Grad (test 2.43 See_Comment [Automated code = 2486810171) message] The system which generated this result transmitted reference range: 36 mmHg. The reference range was not used to interpret this result as normal/abnormal . RVOT pk grad (test 3.02 mmHg code = 8565858835) PV VMAX (test code 0.78 m/s <=3 = 5496974923) Ao Root Diameter 2.77 cm <=3.99 (test code = 4581004743) Ao Root Diameter 2.77 cm (test code = 1767198657) Ascending aorta 2.95 cm (test code = 4065593521) BSA (test code = 2.02 m2 5559977699) BSA Rashid (test code 2.11 m2 = 8187051723) BSA Haycock (test 2.10 m2 code = 9094146553) Pred METS R1 (test 9.76 code = 5085952145) Pred Exer Dur R1 9.49 (test code = 3931514449) MV Decel slope 5.02 m/s2 (test code = 3544396363) LVPW pct thck PLAX 25.29 % (test code = 3900179795) LV vol s cube 2D 27.97 ml (test code = 0522228856) LV vol d cube 2D 86.49 ml (test code = 5311817380) LV SV Cube 2D (test 58.52 ml code = 3534960221) LV SI Cube 2D (test 28.94 ml/m2 code = 6891279977) IVS pct thck PLAX 16.96 % (test code = 2475950166) Calc MPHR (test 165.08 bpm code = 8716377811) AoV area I VMN bsa 1.20 cm2/m2 (test code = 2433696807) 85 of MPHR (test 140.32 code = 4467585071) RVOT VTI (test code 0.14 m = 4652343204) RVOT Vmn (test code 0.59 m/s = 5465312302) RVOT mean grad 1.54 mmHg (test code = 5272743242) LVOT mean grad 1.67 mmHg (test code = 2568800563) Aov area Vmn (test 2.42 cm2 code = 4523385428) Pt Wt (test code = 90.72 5773517180) Pt Size (test code 170.18 = 1947216324) MV AE ratio (test 0.16 code = 1303305584) LVOT Vmn (test code 0.61 = 4196389678) PV Vmn (test code = 17.84 m/s 5183004879) LV Vol Index s 41.57 ml/m2 bpmod BSA Jean Claude (test code = 7846637534) LV SI MOD BP BSA 23.73 ml/m2 Jean Claude (test code = 0305755545) BMI (test code = 31.32 kg/m2 4950166300) LV Vol,s BP (test 36.07 nl code = 1506121945) LV Vol,d BP (test 84.05 ml code = 6483976129) LV SV,BP (test code 47.99 % = 2871006232) LV SV,A4C (test 44.47 % code = 3438115540) LV SV,A2C (test 47.51 % code = 4617571938) Gordo Ross,s A4C 6.78 cm (test code = 4952016105) Gordo Ross,s A2C 6.94 cm (test code = 1747580636) Gordo Ross,d A4C 7.48 cm (test code = 7430075831) Gordo Ross,d A2C 7.91 cm (test code = 1998172161) LV EF,A4C (test 54.41 % code = 8719254539) LV EF,A2C (test 57.86 % code = 3046065777) AoV VTI (test code 0.16 m = 2279057741) LVOT VTI (test code 0.14 m = 2845752994) MOE (test code = MOE) Left Ventricle: Findings consistent with mild concentric hypertrophy. Regional wall motion abnormality not seen but can not be completely excluded. Normal systolic function with a visually estimated EF of 60 - 65%. No hemodynamically significant valvular stenosis or regurgitation. Left VentricleFindings consistent with mild concentric hypertrophy. Regional wall motion abnormality not seen but can not be completely excluded. Normal systolic function with a visually estimated EF of 60 - 65%. Unable to assess diastolic function due to arrhythmia.Right VentricleRight ventricle size is normal. Normal systolic function.Left AtriumLeft atrium size is normal.Right AtriumRight atrium size is normal.IVC/SVCIVC diameter is less than or equal to 21 mm and decreases greater than 50% during inspiration; therefore the estimated right atrial pressure is normal (~3 mmHg).Mitral ValveNot well visualized. Trace valvular regurgitation. No stenosis.Tricuspid ValveTrace valvular regurgitation. Unable to assess PA systolic pressure due to lack of significant tricuspid regurgitant jet .Aortic ValveNot well visualized. No significant valvular regurgitation. No stenosis.Pulmonic ValveNot well visualized. Trace valvular regurgitation.Pericard iumThere is no pericardial effusion present.AortaNormal sized aortic root and ascending aorta.Study DetailsStudy quality was fair. A complete 2D, color flow Doppler and spectral Doppler echocardiogram was performed. Lumason ultrasound enhancing agent used. Patient exhibited atrial fibrillation. Technical difficulties due to patient's clinical status. Lab Interpretation Abnormal (test code = 89579-9) [facility] BszaqrooOUYG-PdN-2 (COVID-19) RNA [Presence] in Respiratory specimen by LEILANI with probe [id number] 05:21:05 Test Item Value Reference Range Interpretation Comments SARS-CoV-2 (COVID-19) RNA Not detected [Presence] in Respiratory specimen by LEILANI with probe detection (test code = 50404-9) Whether patient is employed in a Unknown healthcare setting (test code = 70717-1) Whether the patient has symptoms Unknown related to condition of interest (test code = 77206-1) Whether the patient was Unknown hospitalized for condition of interest (test code = 73266-9) Whether the patient was admitted Unknown to intensive care unit (ICU) for condition of interest (test code = 62050-4) Whether patient resides in a Unknown congregate care setting (test code = 99419-1) status (test code = Unknown 70008-1) Date and time of symptom onset Unknown (test code = 92046-9) [facility] ED Preliminary Interpretation - Not an [id number] 21:56:45 Test Item Value Reference Range Interpretation Comments MOE (test code = MOE) Fortino Lozano MD 04/12/2022 9:18 [facility] ED Preliminary Interpretation - Not an OrderPerformed by: Fortino Lozano MDAuthorized by: Fortino Lozano MD ECG reviewed by ED Physician in the absence of a loan inspector: yes Interpretation: Interpretation: abnormal Rate: ECG rate: 116 ECG rate assessment: tachycardic Rhythm: Rhythm: sinus tachycardia Ectopy: Ectopy: none QRS: QRS axis: Left QRS intervals: NormalConduction: Conduction: abnormal Abnormal conduction: complete RBBB ST segments: ST segments: NormalT waves: T waves: normal Comments: Similar to 10/10 Lab Interpretation Abnormal (test code = 45416-6) [facility] ED Preliminary Interpretation - Not an [id number] 21:56:45 Test Item Value Reference Range Interpretation Comments MOE (test code = MOE) Fortino Lozano MD 04/12/2022 9:18 [facility] ED Preliminary Interpretation - Not an OrderPerformed by: Fortino Lozano MDAuthorized by: Fortino Lozano MD ECG reviewed by ED Physician in the absence of a loan inspector: yes Interpretation: Interpretation: abnormal Rate: ECG rate: 116 ECG rate assessment: tachycardic Rhythm: Rhythm: sinus tachycardia Ectopy: Ectopy: none QRS: QRS axis: Left QRS intervals: NormalConduction: Conduction: abnormal Abnormal conduction: complete RBBB ST segments: ST segments: NormalT waves: T waves: normal Comments: Similar to 10/10 Lab Interpretation Abnormal (test code = 48889-2) [facility] Preliminary Interpretation - Not an [id number] 21:56:45 Test Item Value Reference Range Interpretation Comments MOE (test code = MOE) Fortino Lozano MD 04/12/2022 9:18 [facility] Preliminary Interpretation - Not an OrderPerformed by: Fortino Lozano MDAuthorized by: Fortino Lozano MD ECG reviewed by ED Physician in the absence of a loan inspector: yes Interpretation: Interpretation: abnormal Rate: ECG rate: 116 ECG rate assessment: tachycardic Rhythm: Rhythm: sinus tachycardia Ectopy: Ectopy: none QRS: QRS axis: Left QRS intervals: NormalConduction: Conduction: abnormal Abnormal conduction: complete RBBB ST segments: ST segments: NormalT waves: T waves: normal Comments: Similar to 10/10 Lab Interpretation Abnormal (test code = 05460-9) [facility] LmrdnxogHMXO-ZlR-0 (COVID-19) RNA [Presence] in Respiratory specimen by LEILANI with probe [id number] 10:09:09 Test Item Value Reference Range Interpretation Comments SARS-CoV-2 (COVID-19) RNA Not detected [Presence] in Respiratory specimen by LEILANI with probe detection (test code = 17227-4) Whether patient is employed in a Unknown healthcare setting (test code = 94341-8) Whether the patient has symptoms Unknown related to condition of interest (test code = 75068-8) Whether the patient was Unknown hospitalized for condition of interest (test code = 18385-4) Whether the patient was admitted Unknown to intensive care unit (ICU) for condition of interest (test code = 24733-0) Whether patient resides in a Unknown congregate care setting (test code = 86973-0) status (test code = Unknown 09957-0) Date and time of symptom onset Unknown (test code = 70209-3) [facility] Test Item Value Reference Range Interpretation Comments GLUBED (test code = 170 mg/dL 74-106 H Performe d by 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 [facility] [id number] 21:00:00 Test Item Value Reference Range Interpretation Comments GLUBED (test code = 185 mg/dL 74-106 H Performe d by 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 [facility] [id number] 15:40:00 Test Item Value Reference Range Interpretation Comments GLUBED (test code = 167 mg/dL 74-106 H Performe d by 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 [facility] [id number] 11:13:00 Test Item Value Reference Range Interpretation Comments GLUBED (test code = 212 mg/dL 74-106 H Performe d by 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 [facility] [id number] 08:09:00 Test Item Value Reference Range Interpretation Comments GLUBED (test code = 91 mg/dL 74-106 N Performe d by 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 [facility] [id number] 20:51:00 Test Item Value Reference Range Interpretation Comments GLUBED (test code = 155 mg/dL 74-106 H Performe d by 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 [facility] [id number] 15:53:00 Test Item Value Reference Range Interpretation Comments GLUBED (test code = 130 mg/dL 74-106 H Performe d by 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 [facility] [id number] 11:15:00 Test Item Value Reference Range Interpretation Comments GLUBED (test code = 195 mg/dL 74-106 H Performe d by 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 [facility] [id number] 07:48:00 Test Item Value Reference Range Interpretation Comments GLUBED (test code = 142 mg/dL 74-106 H Performe d by 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 [facility] BASIC METABOLIC [id number] 07:09:00 Test Item Value Reference Range Interpretation Comments SODIUM (test code = 135 mmol/L 136-145 L NA) POTASSIUM (test code 4.0 mmol/L 3.5-5.1 N = K) CHLORIDE (test code 102.0 mmol/L 98-107 N = CL) CARBON DIOXIDE (test 26.0 mmol/L 21-32 N code = CO2) ANION GAP (test code 11.0 10-20 N = GAP) GLUCOSE (test code = 154 mg/dL 74-106 H GLU) BLOOD UREA NITROGEN 6 mg/dL 7-18 L (test code = BUN) GLOMERULAR > 60 mL/min See_Comment Estimated GFR b y FILTRATION RATE using Modifi ed MDRD (test code = GFR) formula.Ch ronic kidney disease is defined as eith er kidney damageor GFR <60 mL/min/1.73 m2 for >3 months. [Automated mess age] The system [employer] generated this result transmitted ref erence range: >=60. Th e reference range was not used to int erpret this result as normal/abnormal . CREATININE (test 0.80 mg/dL 0.7-1.3 N code = CREAT) BUN/CREATININE RATIO 7.6 10-20 L (test code = BUN/CREA) CALCIUM (test code = 8.6 mg/dL 8.5-10.1 N CA) CBC W/AUTO [id number] 06:52:00 Test Item Value Reference Range Interpretation Comments WHITE BLOOD CELL (test code = 4.1 K/mm3 4.5-12.5 L WBC) RED BLOOD CELL (test code = 3.99 mill/mm3 4.0-5.8 L RBC) HEMOGLOBIN (test code = HGB) 11.5 gram/dL 13.0-17.5 L HEMATOCRIT (test code = HCT) 35.3 % 42.0-52.0 L MEAN CELL VOLUME (test code = 88.5 fL 80-98 N MCV) MEAN CELL HGB (test code = MCH) 28.8 picogram 27.0-33.0 N MEAN CELL HGB CONCETRATION 32.6 gram/dL 33.0-36.0 L (test code = MCHC) RED CELL DISTRIBUTION WIDTH 13.2 % 11.6-16.2 N (test code = RDW) RED CELL DISTRIBUTION WIDTH SD 43.1 fL 37.0-51.0 N (test code = RDW-SD) PLATELET COUNT (test code = 310 K/mm3 150-450 N PLT) MEAN PLATELET VOLUME (test code 9.7 fL 6.7-11.0 N = MPV) NEUTROPHIL % (test code = NT%) 64.8 % 39.0-69.0 N IMMATURE GRANULOCYTE % (test 0.5 % 0.0-5.0 N code = IG%) LYMPHOCYTE % (test code = LY%) 23.2 % 25.0-55.0 L MONOCYTE % (test code = MO%) 8.6 % 0.0-10.0 N EOSINOPHIL % (test code = EO%) 2.4 % 0.0-5.0 N BASOPHIL % (test code = BA%) 0.5 % 0.0-1.0 N NUCLEATED RBC % (test code = 0.0 % 0-0 N NRBC%) NEUTROPHIL # (test code = NT#) 2.65 K/mm3 1.8-7.7 N IMMATURE GRANULOCYTE # (test 0.02 x10 3/uL 0-0.03 N code = IG#) LYMPHOCYTE # (test code = LY#) 0.95 K/mm3 1.0-5.0 L MONOCYTE # (test code = MO#) 0.35 K/mm3 0-0.8 N EOSINOPHIL # (test code = EO#) 0.10 K/mm3 0.0-0.5 N BASOPHIL # (test code = BA#) 0.02 K/mm3 0.0-0.2 N NUCLEATED RBC # (test code = 0.00 K/mm3 0.0-0.1 N NRBC#) MANUAL DIFF REQUIRED (test code NO = MDIFF) [id number] 20:15:00 Test Item Value Reference Range Interpretation Comments GLUBED (test code = 227 mg/dL 74-106 H Performe d by 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 [facility] [id number] 15:49:00 Test Item Value Reference Range Interpretation Comments GLUBED (test code = 191 mg/dL 74-106 H Performe d by 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 [facility] [id number] 10:43:00 Test Item Value Reference Range Interpretation Comments GLUBED (test code = 362 mg/dL 74-106 H Performe d by 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 [facility] [id number] 08:01:00 Test Item Value Reference Range Interpretation Comments GLUBED (test code = 203 mg/dL 74-106 H Performe d by 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 [facility] BASIC METABOLIC [id number] 02:21:00 Test Item Value Reference Range Interpretation Comments SODIUM (test code = 137 mmol/L 136-145 N NA) POTASSIUM (test code 4.1 mmol/L 3.5-5.1 N = K) CHLORIDE (test code 109.0 mmol/L 98-107 H = CL) CARBON DIOXIDE (test 25.0 mmol/L 21-32 N code = CO2) ANION GAP (test code 7.1 10-20 L = GAP) GLUCOSE (test code = 155 mg/dL 74-106 H GLU) BLOOD UREA NITROGEN 8 mg/dL 7-18 N (test code = BUN) GLOMERULAR > 60 mL/min See_Comment Estimated GFR b y FILTRATION RATE using Modifi ed MDRD (test code = GFR) formula.Ch ronic kidney disease is defined as eith er kidney damageor GFR <60 mL/min/1.73 m2 for >3 months. [Automated mess age] The system [employer] generated this result transmitted ref erence range: >=60. Th e reference range was not used to int erpret this result as normal/abnormal . CREATININE (test 0.70 mg/dL 0.7-1.3 N code = CREAT) BUN/CREATININE RATIO 11.6 10-20 N (test code = BUN/CREA) CALCIUM (test code = 8.2 mg/dL 8.5-10.1 L CA) CBC W/AUTO [id number] 02:17:00 Test Item Value Reference Range Interpretation Comments WHITE BLOOD CELL (test code = 4.4 K/mm3 4.5-12.5 L WBC) RED BLOOD CELL (test code = 3.84 mill/mm3 4.0-5.8 L RBC) HEMOGLOBIN (test code = HGB) 10.9 gram/dL 13.0-17.5 L HEMATOCRIT (test code = HCT) 33.7 % 42.0-52.0 L MEAN CELL VOLUME (test code = 87.8 fL 80-98 N MCV) MEAN CELL HGB (test code = MCH) 28.4 picogram 27.0-33.0 N MEAN CELL HGB CONCETRATION 32.3 gram/dL 33.0-36.0 L (test code = MCHC) RED CELL DISTRIBUTION WIDTH 13.7 % 11.6-16.2 N (test code = RDW) RED CELL DISTRIBUTION WIDTH SD 43.4 fL 37.0-51.0 N (test code = RDW-SD) PLATELET COUNT (test code = 299 K/mm3 150-450 N PLT) MEAN PLATELET VOLUME (test code 9.8 fL 6.7-11.0 N = MPV) NEUTROPHIL % (test code = NT%) 62.9 % 39.0-69.0 N IMMATURE GRANULOCYTE % (test 0.2 % 0.0-5.0 N code = IG%) LYMPHOCYTE % (test code = LY%) 26.7 % 25.0-55.0 N MONOCYTE % (test code = MO%) 6.8 % 0.0-10.0 N EOSINOPHIL % (test code = EO%) 2.7 % 0.0-5.0 N BASOPHIL % (test code = BA%) 0.7 % 0.0-1.0 N NUCLEATED RBC % (test code = 0.0 % 0-0 N NRBC%) NEUTROPHIL # (test code = NT#) 2.75 K/mm3 1.8-7.7 N IMMATURE GRANULOCYTE # (test 0.01 x10 3/uL 0-0.03 N code = IG#) LYMPHOCYTE # (test code = LY#) 1.17 K/mm3 1.0-5.0 N MONOCYTE # (test code = MO#) 0.30 K/mm3 0-0.8 N EOSINOPHIL # (test code = EO#) 0.12 K/mm3 0.0-0.5 N BASOPHIL # (test code = BA#) 0.03 K/mm3 0.0-0.2 N NUCLEATED RBC # (test code = 0.00 K/mm3 0.0-0.1 N NRBC#) VANCOMYCIN [id number] 22:07:00 Test Item Value Reference Range Interpretation Comments VANCOMYCIN TROUGH (test code = 10.5 ug/mL 10-20 N VANCT) [id number] 20:15:00 Test Item Value Reference Range Interpretation Comments GLUBED (test code = 185 mg/dL 74-106 H Performe d by 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 [facility] [id number] 16:48:00 Test Item Value Reference Range Interpretation Comments GLUBED (test code = 280 mg/dL 74-106 H Performe d by 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 [facility] [id number] 13:00:00 Test Item Value Reference Range Interpretation Comments GLUBED (test code = 226 mg/dL 74-106 H Performe d by 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 [facility] [id number] 11:29:00 Test Item Value Reference Range Interpretation Comments GLUBED (test code = 246 mg/dL 74-106 H Performe d by 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 [facility] [id number] 10:34:00 Test Item Value Reference Range Interpretation Comments GLUBED (test code = 227 mg/dL 74-106 H Performe d by 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 [facility] [id number] 10:34:00 Test Item Value Reference Range Interpretation Comments GLUBED (test code = 256 mg/dL 74-106 H Performe d by 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 7 ESTIMATED AVERAGE 329 MG/DL GLUCOSE (test code = EAG) LIPID PROFILE (CORONARY RISK)[id number] 02:03:00 Test Item Value Reference Range Interpretation Comments TRIGLYCERIDES (test 97 mg/dL 20-150 N code = TRIG) CHOLESTEROL (test code 103 mg/dL 0-200 N = CHOL) CHOLESTEROL/HDL RATIO 3.0 RATIO 0-4.9 N RISK A SSOCIATED WITH (test code = CHOLHDL) CHOL/H DL RATIOS: Risk Male Female1/2 AVERAGE 3.43 3.27AVERAG E 4.97 4.442X AVERAGE 9.55 7.053X AVERAGE 23.39 11.04 REFERENCE VALUE IS RELATED TO R ISK LEVELS ASRECOMM ENDED BY THE BHUPINDER. [facility] RT, LUNG, AND BLOOD INST. HDL CHOLESTEROL (test 27 mg/dL 40-60 L code = HDL) LIPOPROTEIN LDL (test 71 mg/dL 100-129 L ====== code = LDL) ======= Referen ce Interval: mg /dL mmol/L--------- ------- ------- ------O ptimal <100 <2.6Near/above optimal 100-129 2.6-3.3Borderli ne High 130-159 3.4-4.1 High 160-189 4.1-4.9 Very High >=190 >=4.9========= This LDL result is a direct measurement.=== ====== BASIC METABOLIC [id number] 18:01:00 Test Item Value Reference Range Interpretation Comments SODIUM (test code = 138 mmol/L 136-145 RESULT V ERIFIED BY NA) REPEAT ANALYSIS POTASSIUM (test code 3.8 mmol/L 3.5-5.1 N = K) CHLORIDE (test code 105.0 mmol/L 98-107 N = CL) CARBON DIOXIDE (test 27.0 mmol/L 21-32 N code = CO2) ANION GAP (test code 9.8 10-20 L = GAP) GLUCOSE (test code = 216 mg/dL 74-106 H GLU) BLOOD UREA NITROGEN 11 mg/dL 7-18 N (test code = BUN) GLOMERULAR > 60 mL/min See_Comment Estimated GFR b y FILTRATION RATE using Modifi ed MDRD (test code = GFR) formula.Ch ronic kidney disease is defined as eith er kidney damageor GFR <60 mL/min/1.73 m2 for >3 months. [Automated mess age] The system [employer] generated this result transmitted ref erence range: >=60. Th e reference range was not used to int erpret this result as normal/abnormal . CREATININE (test 0.80 mg/dL 0.7-1.3 N code = CREAT) BUN/CREATININE RATIO 14.1 10-20 N (test code = BUN/CREA) CALCIUM (test code = 8.3 mg/dL 8.5-10.1 L CA) [id number] 18:01:00 Test Item Value Reference Range Interpretation Comments PHOSPHORUS (test code = PHOS) 2.8 mg/dL 2.5-4.9 N [id number] 18:01:00 Test Item Value Reference Range Interpretation Comments MAGNESIUM (test code = MAG) 1.7 mg/dL 1.8-2.4 L THYROID STIMULATING [id number] 18:01:00 Test Item Value Reference Range Interpretation Comments THYROID STIMULATING 0.667 uIU/mL 0.36-3.74 N TSH REFE RENCE HORMONE (test code = RANGES: EUTHYROID: TSH) 0.35 - 4.3 mIU/ mL HYPO : > 5.5 mI U/mL HYPER : < 0.35 mIU/mL CBC W/AUTO [id number] 18:00:00 Test Item Value Reference Range Interpretation Comments WHITE BLOOD CELL (test code = 4.5 K/mm3 4.5-12.5 N WBC) RED BLOOD CELL (test code = 4.28 mill/mm3 4.0-5.8 N RBC) HEMOGLOBIN (test code = HGB) 12.1 gram/dL 13.0-17.5 L HEMATOCRIT (test code = HCT) 37.7 % 42.0-52.0 L MEAN CELL VOLUME (test code = 88.1 fL 80-98 N MCV) MEAN CELL HGB (test code = MCH) 28.3 picogram 27.0-33.0 N MEAN CELL HGB CONCETRATION 32.1 gram/dL 33.0-36.0 L (test code = MCHC) RED CELL DISTRIBUTION WIDTH 13.4 % 11.6-16.2 N (test code = RDW) RED CELL DISTRIBUTION WIDTH SD 43.0 fL 37.0-51.0 N (test code = RDW-SD) PLATELET COUNT (test code = 323 K/mm3 150-450 N PLT) MEAN PLATELET VOLUME (test code 9.4 fL 6.7-11.0 N = MPV) NEUTROPHIL % (test code = NT%) 70.3 % 39.0-69.0 H IMMATURE GRANULOCYTE % (test 0.4 % 0.0-5.0 N code = IG%) LYMPHOCYTE % (test code = LY%) 20.5 % 25.0-55.0 L MONOCYTE % (test code = MO%) 7.1 % 0.0-10.0 N EOSINOPHIL % (test code = EO%) 1.3 % 0.0-5.0 N BASOPHIL % (test code = BA%) 0.4 % 0.0-1.0 N NUCLEATED RBC % (test code = 0.0 % 0-0 N NRBC%) NEUTROPHIL # (test code = NT#) 3.18 K/mm3 1.8-7.7 N IMMATURE GRANULOCYTE # (test 0.02 x10 3/uL 0-0.03 N code = IG#) LYMPHOCYTE # (test code = LY#) 0.93 K/mm3 1.0-5.0 L MONOCYTE # (test code = MO#) 0.32 K/mm3 0-0.8 N EOSINOPHIL # (test code = EO#) 0.06 K/mm3 0.0-0.5 N BASOPHIL # (test code = BA#) 0.02 K/mm3 0.0-0.2 N NUCLEATED RBC # (test code = 0.00 K/mm3 0.0-0.1 N NRBC#) LACTIC [id number] 14:22:00 Test Item Value Reference Range Interpretation Comments LACTIC ACID (test code = LACT) 1.3 mmol/L 0.4-1.9 N - XR TIBIA/FIBULA 2 V [id number] 12:37:00 [facility] 1965 Sex: M FAX: Jerry Roa MD [phone] [place]: [address]: REG Name: HARJINDER COLUNGA [facility] : 1965 Age/S: 56/M [address] [facility] Unit #: [id number] Loc: [place] [address] Phys: Jerry Roa MD Acct: [id number] Dis Date: Status: REG ER PHONE #: [phone] Exam Date: 12/31/2021 1226 FAX #: [phone] Reason: leg redness EXAMS: CPT CODE: [id number] XR TIBIA/FIBULA 2 [place] LT [id number] REASON FOR EXAM: leg redness EXAM ORDER DATE: 12/31/2021 11:19 AM Ordering M.D.: Jerry Roa MD PROCEDURE: - XR KNEE 3 V LT, - XR TIBIA/FIBULA 2 V LT Comparison:No relevant priors FINDINGS: No acute fracture. Bony trabecular pattern is unremarkable. No cortical destruction or periosteal reaction. Small osteophytes are presentin the knee joint. No joint effusion is present. No stranding in Hoffa's fat pad. The ankle joint appears to be appropriately aligned. Mild vascular calcifications are seen. There appears to be subcutaneous edema in the visualized leg. IMPRESSION: Mild degenerative changes of the left knee. Otherwise no radiographically evident bony abnormalities are seen in the scanned left lower extremity. The subcutaneous soft tissues appear edematous. Correlate with physical exam. [facility] ElectronicallySigned by Magan Rae MD on 12/31/2021 at 1237 Reported and signed by: Magan Rae MD CC: Jerry Roa MD Technologist: RT STEFFANY(R) Trnscrd Date/Time/By: 12/31/2021 (0952) : By: [email or web address] [facility] Print D/T: S: 12/31/2021 (2095) PAGE 1 Signed Report- XR KNEE 3 V [id number] 12:37:00 [facility] : 1965 Sex: M FAX: Jerry Roa MD [phone] [place]: [address]: REG Name: HARJINDER COLUNGA [facility] : 1965 Age/S: 56/M [address] [facility] Unit #: [id number] Loc: [place] [address] Phys: Jerry Roa MD Acct: [id number] Dis Date: Status: REG ER PHONE #: [phone] Exam Date: 12/31/2021 1226 FAX #: [phone] Reason: leg redness EXAMS: CPT CODE: [id number] XR KNEE 3 V LT [id number] REASON FOR EXAM: leg redness EXAMORDER DATE: 12/31/2021 11:19 AM Ordering M.D.: Jerry Roa MD PROCEDURE: - XR KNEE 3 V LT, - XR TIBIA/FIBULA 2 V LT Comparison:No relevant priors FINDINGS: No acute fracture. Bony trabecular pattern is unremarkable. No cortical destruction or periosteal reaction. Small osteophytes are present in the knee joint. No joint effusion is present. No stranding in Hoffa's fat pad. The ankle joint appears cherelle appropriately aligned. Mild vascular calcifications are seen. There appears to be subcutaneous edema in the visualized leg. IMPRESSION: Mild degenerative changes of the left knee. Otherwise no radiog raphically evident bony abnormalities are seen in the scanned left lower extremity. The subcutaneoussoft tissues appear edematous. Correlate with physical exam. Location: [facility] at 1237 Reported and signed by: Magan Rae MD CC: Jerry Roa MD Technologist: FORTINO SOSA RT(R) Trnscrd Date/Time/By: 12/31/2021 (1237) : By: [id number] Print D/T: S: 12/31/2021 (0624) PAGE 1 Signed Report BASIC METABOLIC [id number] 12:10:00 Test Item Value Reference Range Interpretation Comments SODIUM (test code = 132 mmol/L 136-145 L NA) POTASSIUM (test code 4.4 mmol/L 3.5-5.1 N = K) CHLORIDE (test code = 97.0 mmol/L 98-107 L CL) CARBON DIOXIDE (test 27.0 mmol/L 21-32 N code = CO2) ANION GAP (test code 12.4 10-20 N = GAP) GLUCOSE (test code = 474 mg/dL 74-106 H GLU) BLOOD UREA NITROGEN 11 mg/dL 7-18 N (test code = BUN) GLOMERULAR FILTRATION > 60 mL/min See_Comment Estima yana GFR by RATE (test code = using Bear fied MDRD GFR) formula.Chronic kidney disease is defined as eith er kidney damageor GFR <60 mL/min/1.73 m2 for >3 months. [Automated mess age] The system [employer] generated this result transmitted ref erence range: >=60. Th e reference range was not used to int erpret this result as normal/abnormal . CREATININE (test code 1.00 mg/dL 0.7-1.3 N = CREAT) BUN/CREATININE RATIO 10.8 10-20 N (test code = BUN/CREA) CALCIUM (test code = 8.8 mg/dL 8.5-10.1 N CA) HEPATIC FUNCTION [id number] 12:10:00 Test Item Value Reference Range Interpretation Comments TOTAL PROTEIN (test 8.2 gram/dL 6.4-8.2 N code = PROT) ALBUMIN (test code = 3.7 g/dL 3.4-5.0 N ALB) GLOBULIN (test code = 4.5 gram/dL 2.7-4.2 H GLOB) ALBUMIN/GLOBULIN RATIO 0.8 0.75-1.50 N (test code = A/G) BILIRUBIN TOTAL (test 0.30 mg/dL 0.0-1.0 N code = BILT) BILIRUBIN DIRECT (test 0.10 mg/dL 0.0-0.20 N code = BILD) SGOT/AST (test code = 10 IUnit/L 15-37 L AST) SGPT/ALT (test code = 11 IUnit/L 12-78 L ALT) ALKALINE PHOSPHATASE 117 IUnit/L 45-117 N Note change in TOTAL (test code = reference range due ALKP) to change in reagent. LACTIC [id number] 12:08:00 Test Item Value Reference Range Interpretation Comments LACTIC ACID (test 2.1 mmol/L 0.4-1.9 HH Results ca lled to code = LACT) [id number] by [facility] 4988 12/31/21 1208Cr itical results verifie d and read back by Darlyn rse? Y FOR ALL ICU PATIENT EXCLUDING HOLD PLEASE CALL [phone] CBC W/AUTO [id number] 11:58:00 Test Item Value Reference Range Interpretation Comments WHITE BLOOD CELL (test code = 8.3 K/mm3 4.5-12.5 N WBC) RED BLOOD CELL (test code = 4.71 mill/mm3 4.0-5.8 N RBC) HEMOGLOBIN (test code = HGB) 13.4 gram/dL 13.0-17.5 N HEMATOCRIT (test code = HCT) 41.5 % 42.0-52.0 L MEAN CELL VOLUME (test code = 88.1 fL 80-98 N MCV) MEAN CELL HGB (test code = MCH) 28.5 picogram 27.0-33.0 N MEAN CELL HGB CONCETRATION 32.3 gram/dL 33.0-36.0 L (test code = MCHC) RED CELL DISTRIBUTION WIDTH 13.3 % 11.6-16.2 N (test code = RDW) RED CELL DISTRIBUTION WIDTH SD 42.9 fL 37.0-51.0 N (test code = RDW-SD) PLATELET COUNT (test code = 369 K/mm3 150-450 N PLT) MEAN PLATELET VOLUME (test code 9.7 fL 6.7-11.0 N = MPV) NEUTROPHIL % (test code = NT%) 77.9 % 39.0-69.0 H IMMATURE GRANULOCYTE % (test 0.6 % 0.0-5.0 N code = IG%) LYMPHOCYTE % (test code = LY%) 14.4 % 25.0-55.0 L MONOCYTE % (test code = MO%) 5.1 % 0.0-10.0 N EOSINOPHIL % (test code = EO%) 1.6 % 0.0-5.0 N BASOPHIL % (test code = BA%) 0.4 % 0.0-1.0 N NUCLEATED RBC % (test code = 0.0 % 0-0 N NRBC%) NEUTROPHIL # (test code = NT#) 6.46 K/mm3 1.8-7.7 N IMMATURE GRANULOCYTE # (test 0.05 x10 3/uL 0-0.03 H code = IG#) LYMPHOCYTE # (test code = LY#) 1.19 K/mm3 1.0-5.0 N MONOCYTE # (test code = MO#) 0.42 K/mm3 0-0.8 N EOSINOPHIL # (test code = EO#) 0.13 K/mm3 0.0-0.5 N BASOPHIL # (test code = BA#) 0.03 K/mm3 0.0-0.2 N NUCLEATED RBC # (test code = 0.00 K/mm3 0.0-0.1 N NRBC#) POC [id number] 16:17:00 Test Item Value Reference Range Interpretation Comments POC glucose (test code 238 mg/dL 65-100 H [facility] Name: [facility] = 78750-5) FrancoDevice ID : [id number] Lab Interpretation Abnormal (test code = 75693-3) [facility] [id number] 16:17:00 Test Item Value Reference Range Interpretation Comments POC glucose (test code 238 mg/dL 65-100 H [facility] Name: [facility] = 96581-2) FrancoDevice ID : [id number] Lab Interpretation Abnormal (test code = 74680-4) [facility] [id number] 11:12:00 Test Item Value Reference Range Interpretation Comments Urine culture Mixed yadi Specimen isolate (test <=10-3 col/cc InformationSp ecimen code = 38699-5) Source: Urin eSpecimen Site: Clean cat [facility] [id number] 11:12:00 Test Item Value Reference Range Interpretation Comments Urine culture Mixed yadi Specimen isolate (test <=10-3 col/cc InformationSp ecimen code = 64041-6) Source: Urin eSpecimen Site: Clean cat [facility] [id number] 11:12:00 Test Item Value Reference Range Interpretation Comments Urine culture Mixed yadi Specimen isolate (test <=10-3 col/cc InformationSp ecimen code = 40038-6) [facility] Site: Clean [facility] [id number] 11:12:00 Test Item Value Reference Range Interpretation Comments Urine culture Mixed yadi Specimen isolate (test <=10-3 col/cc InformationSp ecimen code = 85830-6) Source: [facility] Site: Clean [facility] [id number] 11:12:00 Test Item Value Reference Range Interpretation Comments Urine culture Mixed yadi Specimen isolate (test <=10-3 col/cc InformationSp ecimen code = 13878-5) [facility]: [facility] [Presence] in Respiratory specimen by LEILANI with probe [id number] 06:28:40 Test Item Value Reference Range Interpretation Comments SARS-CoV-2 (COVID-19) RNA Not detected [Presence] in Respiratory specimen by LEILANI with probe detection (test code = 96968-3) Whether patient is employed in a Unknown healthcare setting (test code = 73994-4) Whether the patient has symptoms Unknown related to condition of interest (test code = 99000-2) Whether the patient was Unknown hospitalized for condition of interest (test code = 49717-1) Whether the patient was admitted Unknown to intensive care unit (ICU) for condition of interest (test code = 17522-0) Whether patient resides in a Unknown congregate care setting (test code = 39387-2) status (test code = Unknown 90706-4) Date and time of symptom onset Unknown (test code = 67470-9) [facility] 12 [id number] 16:49:51 Test Item Value Reference Range Interpretation Comments Ventricular rate (test code = 253) Atrial rate (test code = 255) AL interval (test code = 266) QRSD interval (test code = 260) QT interval (test code = 264) QTC interval (test code = 265) P axis 1 (test code = 267) QRS axis 1 (test code = 268) T wave axis (test code = 270) EKG impression (test Normal sinus rhythm-Low code = 273) voltage QRS-Right bundle branch block-Left anterior fascicular block-^^^ Bifascicular block ^^^-Possible Lateral infarct , age undetermined-Abnormal ECG-In automated comparison with ECG of 02-JAN-2021 19:52,-Left anterior fascicular block is now present-Borderline criteria for Lateral infarct are now present-Criteria for Inferior infarct are no longer present- [facility] 12 [id number] 16:49:51 Test Item Value Reference Range Interpretation Comments Ventricular rate (test code = 253) Atrial rate (test code = 255) AL interval (test code = 266) QRSD interval (test code = 260) QT interval (test code = 264) QTC interval (test code = 265) P axis 1 (test code = 267) QRS axis 1 (test code = 268) T wave axis (test code = 270) EKG impression (test Normal sinus rhythm-Low code = 273) voltage QRS-Right bundle branch block-Left anterior fascicular block-^^^ Bifascicular block ^^^-Possible Lateral infarct , age undetermined-Abnormal ECG-In automated comparison with ECG of 02-JAN-2021 19:52,-Left anterior fascicular block is now present-Borderline criteria for Lateral infarct are now present-Criteria for Inferior infarct are no longer present- [facility] ED Preliminary Interpretation - Not an [id number] 04:49:00 Test Item Value Reference Range Interpretation Comments MOE (test code = MOE) Norberto Lanier FNP 10/11/2021 11:48 [facility] Interpretation - Not an OrderPerformed by: Norberto Lanier FNPAuthorized by: Fahad Anna MD ECG reviewed by ED Physician in the absence of a loan inspector: yes Interpretation: Interpretation: abnormal Rate: ECG rate: 83 ECG rate assessment: normal Rhythm: Rhythm: sinus rhythm Ectopy: Ectopy: none QRS: QRS axis: Normal QRS intervals: WideConduction: Conduction: abnormal Abnormal conduction: complete RBBB and LAFB ST segments: ST segments: NormalT waves: T waves: non-specific Lab Interpretation Abnormal (test code = 16129-5) [facility] Preliminary Interpretation - Not an [id number] 04:49:00 Test Item Value Reference Range Interpretation Comments MOE (test code = MOE) Norberto Lanier FNP 10/11/2021 11:48 [facility] ED Preliminary Interpretation - Not an OrderPerformed by: Norberto Lanier FNPAuthorized by: aFhad Anna MD ECG reviewed by ED Physician in the absence of a loan inspector: yes Interpretation: Interpretation: abnormal Rate: ECG rate: 83 ECG rate assessment: normal Rhythm: Rhythm: sinus rhythm Ectopy: Ectopy: none QRS: QRS axis: Normal QRS intervals: WideConduction: Conduction: abnormal Abnormal conduction: complete RBBB and LAFB ST segments: ST segments: NormalT waves: T waves: non-specific Lab Interpretation Abnormal (test code = 45688-5) [place] [id number] 18:34:00 Test Item Value Reference Range Interpretation Comments GLUBED (test code = 316 mg/dL 74-106 H Performe d by 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 [facility] URINALYSIS [id number] 17:45:00 Test Item Value Reference Range Interpretation Comments UA COLOR (test code = YELLOW YELLOW COLU) UA APPEARANCE (test code CLEAR CLEAR = APPU) UA GLUCOSE DIPSTICK 300-500 (3+) mg/dL NEGATIVE (test code = DGLUU) UA BILIRUBIN DIPSTICK NEGATIVE NEGATIVE (test code = BILU) UA KETONE DIPSTICK (test NEGATIVE mg/dL NEGATIVE code = KETU) UA SPECIFIC GRAVITY 1.020 1.001-1.035 (test code = SGU) UA BLOOD DIPSTICK (test 1+ (Small) NEGATIVE A code = MARIA ELENA) UA PH DIPSTICK (test 6.0 5.0-8.0 code = MICHELL) UA PROTEIN DIPSTICK TRACE (15) mg/dL Neg-15 (test code = PROU) UA UROBILINIOGEN 0.2 mg/dL 0.0-0.2 DIPSTICK (test code = URO) UA NITRITE DIPSTICK NEGATIVE NEGATIVE (test code = SHANNON) UA LEUKOCYTE ESTERASE NEGATIVE uL NEGATIVE DIPSTICK (test code = LEUU) UA MICROSCOPIC NEEDED? YES (test code = UAMICRO) UA WBC (test code = 0-5 per HPF 0-5 WBCU) UA RBC (test code = 0-3 per HPF 0-5 RBCU) UA EPITHELIAL CELLS Few (2-5/hpf) per HPF Few (test code = EPIU) UA BACTERIA (test code = OCCASIONAL per HPF NONE BACU) Urine Source? Clean CatchDRUGS OF ABUSE SCREEN [id number] 17:45:00 Test Item Value Reference Range Interpretation Comments UR MDMA (test code = NEGATIVE NEGATIVE MDMAQLU) URN COCAINE (test code = NEGATIVE NEGATIVE [A utomated message] COCAURN) The system [employer] generated this result transmitted ref erence range: <300 ng/ mL. The reference r maggi was not used to interpret this result as normal/abnor mal. URN CANNABINOIDS (test NEGATIVE See_Comment [Aut omated message] code = CANNABURN) The system which generated this result transmitted ref erence range: <50 ng/m L. The reference range was not used to int erpret this result as normal/abnormal . URN AMPHETAMINE (test NEGATIVE NEGATIVE [Auto mated message] code = AMPHETURN) The system which generated this result transmitted ref erence range: <1000 ng /mL. The reference r maggi was not used to interpret this result as normal/abnor mal. URN BARBITURATE (test NEGATIVE NEGATIVE [Auto mated message] code = BARBITURN) The system which generated this result transmitted ref erence range: <200 ng/ mL. The reference r maggi was not used to interpret this result as normal/abnor mal. URN BENZODIAZEPINE (test NEGATIVE NEGATIVE [A utomated message] code = BENZOURN) The system which generated this result transmitted ref erence range: <200 ng/ mL. The reference r maggi was not used to interpret this result as normal/abnor mal. URN OPIATES (test code = NEGATIVE NEGATIVE [A utomated message] OPIATURN) The system [employer] generated this result transmitted ref erence range: <300 ng/ mL. The reference r maggi was not used to interpret this result as normal/abnor mal. URN PHENCYCLIDINE (PCP) NEGATIVE NEGATIVE [Au tomated message] (test code = PHENCURN) The s ystem which generated this result transmitted ref erence range: <25 ng/m L. The reference range was not used to int erpret this result as normal/abnormal . URN METHADONE (test code NEGATIVE See_Comment [A utomated message] = METHAURN) The system [employer] generated this result transmitted ref erence range: <300 ng/ mL. The reference r maggi was not used to interpret this result as normal/abnor mal. Urine Source? Clean CatchBASIC METABOLIC [id number] 16:11:00 Test Item Value Reference Range Interpretation Comments SODIUM (test code = 132 mmol/L 128-145 N NA) POTASSIUM (test code 4.5 mmol/L 3.5-5.1 N = K) CHLORIDE (test code = 98.0 mmol/L 98-107 N CL) CARBON DIOXIDE (test 29.2 mmol/L 22-29 H code = CO2) ANION GAP (test code 9 mmol/L 10-20 L = GAP) GLUCOSE (test code = 457 mg/dL 70-110 H GLU) BLOOD UREA NITROGEN 15 mg/dL 7-22 N (test code = BUN) GLOMERULAR FILTRATION > 60 mL/min See_Comment Estima yana GFR by RATE (test code = using Bear fied MDRD GFR) formula.Chronic kidney disease is defined as eith er kidney damageor GFR <60 mL/min/1.73 m2 for >3 months. [Automated mess age] The system [employer] generated this result transmitted ref erence range: >=60. Th e reference range was not used to int erpret this result as normal/abnormal . CREATININE (test code 0.99 mg/dL 0.55-1.3 N = CREAT) BUN/CREATININE RATIO 15.2 10-20 N (test code = BUN/CREA) CALCIUM (test code = 8.1 mg/dL 8.0-10.5 N CA) [id number] 16:11:00 Test Item Value Reference Range Interpretation Comments TROPONIN-HS (test 5.1 pg/mL 0-60 N CAUTION: U nits of the code = TROPI) current test m ethodology (pg/mL)differ f rom the prior test meth odology (ng/mL) by a fa ctorof 1000. [id number] 16:11:00 Test Item Value Reference Range Interpretation Comments ALCOHOL (test code = 6 mg/dL 0.0-3.0 H ------- INTERPRET ALC) JAVI DATA NOTE: POSITIVE SCREEN ING RESULTS SHOULD BE CONSI DERED PRESUMPTIVE.WHE N COLLECTED FOR MEDICAL PUR POSES ONLY. SPECIMEN WILL N OTBE COLLECTED BY SYED OF CUSTODY.IF A CO NFIRMATION OF POSITIVE RES ULTS IS DESIRED, ACONFI RMATION TEST MUST BE RE QUESTED BY THE PHYSICIAN [place] ANADDITIONAL ARGE TO THE PATIENT. CBC W/O [id number] 15:42:00 Test Item Value Reference Range Interpretation Comments WHITE BLOOD CELL (test code = 6.7 K/mm3 4.5-12.5 N WBC) RED BLOOD CELL (test code = 4.13 mill/mm3 4.0-5.8 N RBC) HEMOGLOBIN (test code = HGB) 12.1 gram/dL 13.0-17.5 L HEMATOCRIT (test code = HCT) 36.7 % 42.0-52.0 L MEAN CELL VOLUME (test code = 88.9 fL 80-98 N MCV) MEAN CELL HGB (test code = MCH) 29.3 picogram 27.0-33.0 N MEAN CELL HGB CONCETRATION 33.0 gram/dL 33.0-36.0 N (test code = MCHC) RED CELL DISTRIBUTION WIDTH 12.3 % 11.6-16.2 N (test code = RDW) RED CELL DISTRIBUTION WIDTH SD 41.0 fL 37.0-51.0 N (test code = RDW-SD) PLATELET COUNT (test code = 335 K/mm3 150-450 N PLT) MEAN PLATELET VOLUME (test code 9.5 fL 6.7-11.0 N = MPV) - XR CHEST 1 [id number] 15:42:00 [facility] ([facility])Name: HARJINDER COLUNGA : 1965 Sex: M FAX: Brennan Dupont [phone] [place]: [place] St: PRE Name: HARJINDER COLUNGA Psychiatric FS : 1965 Age/S: 56/M [address] [facility] Unit #: [id number] Loc: [place] [address] Phys: Brennan Dupont MD [place], [place] [address] Acct: [id number] Dis Date: Status: PRE ER PHONE #: Exam Date: 08/06/2021 1541 FAX #: Reason: WEAKNESS EXAMS: CPT CODE: [id number] XR CHEST 1 V 79651 REASON FOR EXAM: WEAKNESS Exam Order Date: 08/06/2021 3:22 PM Ordering M.D.: Brennan Dupont MD PROCEDURE: - XR CHEST 1 V COMPARISON: 06/28/2020 FINDINGS: Lines/Tubes: None The lungs are clear. There is no pleural effusion or pneumothorax. Pulmonary vascularity is within normal limits. Cardiomediastinal silhouette and mediastinal contours are unchanged when accounting for differences in technique. Musculoskeletal structures and visualized portions of the upper abdomen are also unchanged. IMPRESSION: No acute cardiopulmonary process. Location: [facility] at 1542 Reported and signed by: Ramu Ramos M.D. CC: Brennan Dupont MD Technologist: Jonathan Herndon RT(R)(CT) [facility] Date/Time/By: 08/06/2021 (3016) : By: [email or web address] Orig Print D/T: S: 08/06/2021 (1211) PAGE 1 Signed ReportLone Star Glucose -- Point of Care Meters ([id number]) 2021-06-29 00:00:00 Test Item Value Reference Range Interpretation Comments BLOOD GLUCOSE-HOME MONITOR (test code = 266 70-110 A 57988-4) [id number] 16:34:00 Test Item Value Reference Range Interpretation Comments TROPONIN-I (test code = TROPI) <0.015 ng/mL 0.00-0.056 N URINALYSIS [id number] 15:41:00 Test Item Value Reference Range Interpretation Comments UA COLOR (test code = YELLOW YELLOW COLU) UA APPEARANCE (test code CLEAR CLEAR = APPU) UA GLUCOSE DIPSTICK 70-100 (1+) mg/dL NEGATIVE (test code = DGLUU) UA BILIRUBIN DIPSTICK NEGATIVE NEGATIVE (test code = BILU) UA KETONE DIPSTICK (test NEGATIVE mg/dL NEGATIVE code = KETU) UA SPECIFIC GRAVITY 1.020 1.001-1.035 (test code = SGU) UA BLOOD DIPSTICK (test TRACE NEGATIVE code = MARIA ELENA) UA PH DIPSTICK (test 6.0 5.0-8.0 code = MICHELL) UA PROTEIN DIPSTICK NEGATIVE mg/dL Neg-15 (test code = PROU) UA UROBILINIOGEN 0.2 mg/dL 0.0-0.2 DIPSTICK (test code = URO) UA NITRITE DIPSTICK NEGATIVE NEGATIVE (test code = SHANNON) UA LEUKOCYTE ESTERASE NEGATIVE uL NEGATIVE DIPSTICK (test code = LEUU) UA MICROSCOPIC NEEDED? YES (test code = UAMICRO) UA WBC (test code = 0-5 per HPF 0-5 WBCU) UA RBC (test code = 0-2 per HPF 0-5 RBCU) UA EPITHELIAL CELLS Few (2-5/hpf) per HPF Few (test code = EPIU) UA BACTERIA (test code = OCCASIONAL per HPF NONE BACU) Urine Source? Clean CatchURINALYSIS [id number] 15:39:00 Test Item Value Reference Range Interpretation Comments UA COLOR (test code = COLU) YELLOW YELLOW UA APPEARANCE (test code = CLEAR CLEAR APPU) UA GLUCOSE DIPSTICK (test 70-100 (1+) mg/dL NEGATIVE code = DGLUU) UA BILIRUBIN DIPSTICK (test NEGATIVE NEGATIVE code = BILU) UA KETONE DIPSTICK (test NEGATIVE mg/dL NEGATIVE code = KETU) UA SPECIFIC GRAVITY (test 1.020 1.001-1.035 code = SGU) UA BLOOD DIPSTICK (test TRACE NEGATIVE code = MARIA ELENA) UA PH DIPSTICK (test code = 6.0 5.0-8.0 MICHELL) UA PROTEIN DIPSTICK (test NEGATIVE mg/dL Neg-15 code = PROU) UA UROBILINIOGEN DIPSTICK 0.2 mg/dL 0.0-0.2 (test code = URO) UA NITRITE DIPSTICK (test NEGATIVE NEGATIVE code = SHANNON) UA LEUKOCYTE ESTERASE NEGATIVE uL NEGATIVE DIPSTICK (test code = LEUU) UA MICROSCOPIC NEEDED? (test code = UAMICRO) UA WBC (test code = WBCU) per HPF 0-5 UA RBC (test code = RBCU) per HPF 0-5 UA EPITHELIAL CELLS (test per HPF Few code = EPIU) UA BACTERIA (test code = per HPF NONE BACU) Urine Source? Clean Catch- CT HEAD/BRAIN W/O [id number] 13:23:00 [facility] ([facility])Name: HARJINDER COLUNGA : 1965 Sex: M Name: HARJINDER COLUNGA Psychiatric FSED : 1965 Age/S: 55 / M [address] [facility] [address] Unit #: [id number] Loc: [address] Phys: Jerry Roa MD [place], [place] [address] Acct: [id number] Dis Date: Status: REG ER PHONE #: Exam Date: 12/24/2020 1302 FAX #: Reason: dizzy EXAMS: CPT CODE: [id number] CT HEAD/BRAIN W/O CONT 19730 HISTORY: dizzy TECHNIQUE: Noncontrast 2.[address] of the head. Examination acquired within 24 hours of arrival. One or more of the following dose reduction techniques were used: Automated exposure control, adjustment of the mA and/or kV according to patient size, and/or utilization of iterative reconstruction technique. DLP 574 mGy-cm. COMPARISON: 12/12/14 FINDINGS: No acute hemorrhage. No CT evidence of acute infarct. Chronic lacunar infarct of the right velasco radiata. Mild periventricular chronic microvascular ischemic changes. No intracranial mass or mass effect. No hydrocephalus. No extra-axial fluid collection. Atherosclerotic vascular calcification of the internal carotid and vertebral arteries. Left maxillary sinus mucous retention cysts/polyps. Hypoplastic frontal sinuses. Mastoid air cells and middle ear cavities are clear. Orbital contents are unremarkable. Calvarium and skull base are intact. IMPRESSION: No acute intracranial process. LOCATION: [place] at 1323 Reported and signed by: Mayuri Duncan D.O. PAGE 1 Signed Report (CONTINUED) Name: HARJINDER COLUNGA [facility] FS : 1965 Age/S: 55 / M [address] [facility] Unit #: [id number] Loc: [address] Phys: Jerry Roa MD [place], [place] [address] Acct: [id number] Dis Date: Status: REG ER PHONE #: Exam Date: 12/24/2020 1305 FAX #: Reason: dizzy EXAMS: CPT CODE: [id number] CT HEAD/BRAIN W/O CONT 27228 (Continued) CC: Jerry Roa MDTechnologist:Vicky Saba RT(R)(CT) CTDI: DLP: Trnscb Date/Time: 12/24/2020 (1323) BradyP1 Orig Print D/T: S: 12/24/2020 (1326) PAGE 2 Signed ReportBASIC METABOLIC [id number] 12:45:00 Test Item Value Reference Range Interpretation Comments SODIUM (test code = 137 mmol/L 128-145 N NA) POTASSIUM (test code 4.4 mmol/L 3.5-5.1 N = K) CHLORIDE (test code 104.0 mmol/L 98-107 N = CL) CARBON DIOXIDE (test 26.7 mmol/L 22-29 N code = CO2) ANION GAP (test code 11 mmol/L 10-20 N = GAP) GLUCOSE (test code = 217 mg/dL 70-110 H GLU) BLOOD UREA NITROGEN 16 mg/dL 7-22 N (test code = BUN) GLOMERULAR > 60 mL/min See_Comment Estimated GFR b y FILTRATION RATE using Modifi ed MDRD (test code = GFR) formula. ron kidney disease is defined as eith er kidney damageor GFR <60 mL/min/1.73 m2 for >3 months. [Automated mess age] The system [employer] generated this result transmitted ref erence range: >=60. Th e reference range was not used to int erpret this result as normal/abnormal . CREATININE (test 0.77 mg/dL 0.55-1.3 N code = CREAT) BUN/CREATININE RATIO 20.8 10-20 H (test code = BUN/CREA) CALCIUM (test code = 8.1 mg/dL 8.0-10.5 N CA) [id number] 12:45:00 Test Item Value Reference Range Interpretation Comments TROPONIN-I (test code = TROPI) <0.015 ng/mL 0.00-0.056 N CREATINE KINASE (CK)2020-12-24 12:43:00 Test Item Value Reference Range Interpretation Comments CREATINE KINASE (CK) (test code = CK) 38 U/L 39-308 L BASIC METABOLIC [id number] 12:37:00 Test Item Value Reference Range Interpretation Comments SODIUM (test code = 137 mmol/L 128-145 N NA) POTASSIUM (test code 4.4 mmol/L 3.5-5.1 N = K) CHLORIDE (test code 104.0 mmol/L 98-107 N = CL) CARBON DIOXIDE (test 26.7 mmol/L 22-29 N code = CO2) ANION GAP (test code 11 mmol/L 10-20 N = GAP) GLUCOSE (test code = 217 mg/dL 70-110 H GLU) BLOOD UREA NITROGEN 16 mg/dL 7-22 N (test code = BUN) GLOMERULAR > 60 mL/min See_Comment Estimated GFR b y FILTRATION RATE using Modifi ed MDRD (test code = GFR) formula. ron kidney disease is defined as eith er kidney damageor GFR <60 mL/min/1.73 m2 for >3 months. [Automated mess age] The system [employer] generated this result transmitted ref erence range: >=60. Th e reference range was not used to int erpret this result as normal/abnormal . CREATININE (test 0.77 mg/dL 0.55-1.3 N code = CREAT) BUN/CREATININE RATIO 20.8 10-20 H (test code = BUN/CREA) CALCIUM (test code = 8.1 mg/dL 8.0-10.5 N CA) [id number] 12:37:00 Test Item Value Reference Range Interpretation Comments TROPONIN-I (test code = TROPI) pg/mL 0-45 CBC W/O [id number] 12:33:00 Test Item Value Reference Range Interpretation Comments WHITE BLOOD CELL (test code = 6.8 K/mm3 4.5-12.5 N WBC) RED BLOOD CELL (test code = 4.60 mill/mm3 4.0-5.8 N RBC) HEMOGLOBIN (test code = HGB) 13.0 gram/dL 13.0-17.5 N HEMATOCRIT (test code = HCT) 39.1 % 42.0-52.0 L MEAN CELL VOLUME (test code = 85.0 fL 80-98 N MCV) MEAN CELL HGB (test code = MCH) 28.3 picogram 27.0-33.0 N MEAN CELL HGB CONCETRATION 33.2 gram/dL 33.0-36.0 N (test code = MCHC) RED CELL DISTRIBUTION WIDTH 13.7 % 11.6-16.2 N (test code = RDW) RED CELL DISTRIBUTION WIDTH SD 43.3 fL 37.0-51.0 N (test code = RDW-SD) PLATELET COUNT (test code = 349 K/mm3 150-450 N PLT) MEAN PLATELET VOLUME (test code 9.3 fL 6.7-11.0 N = MPV) [id number] 09:02:00 Test Item Value Reference Range Interpretation Comments GLUBED (test code = GLUBED) 96 MG/DL 74-106 N [id number] 20:42:00 Test Item Value Reference Range Interpretation Comments GLUBED (test code = GLUBED) 213 MG/DL 74-106 H [id number] 16:51:00 Test Item Value Reference Range Interpretation Comments GLUBED (test code = GLUBED) 209 MG/DL 74-106 H [id number] 15:04:00 Test Item Value Reference Range Interpretation Comments GLUBED (test code = GLUBED) 215 MG/DL 74-106 H [id number] 14:45:00 Test Item Value Reference Range Interpretation Comments ACT-ISTAT (test code = ACTI) 213 SEC 74-125 H [id number] 14:14:00 Test Item Value Reference Range Interpretation Comments ACT-ISTAT (test code = ACTI) 274 SEC 74-125 H [id number] 14:13:00 Test Item Value Reference Range Interpretation Comments ACT-ISTAT (test code = ACTI) 241 SEC 74-125 H [id number] 08:29:00 Test Item Value Reference Range Interpretation Comments GLUBED (test code = GLUBED) 115 MG/DL 74-106 H [id number] 19:03:00 Test Item Value Reference Range Interpretation Comments GLUBED (test code = GLUBED) 143 MG/DL 74-106 H [id number] 16:36:00 Test Item Value Reference Range Interpretation Comments GLUBED (test code = GLUBED) 314 MG/DL 74-106 H [id number] 12:15:00 Test Item Value Reference Range Interpretation Comments GLUBED (test code = GLUBED) 130 MG/DL 74-106 H COVID 19 Asymptomatic IH [id number] 09:47:00 Test Item Value Reference Range Interpretation Comments COVID 19 Asymptomatic IH AG (test NEGATIVE Negative code = COVNONPUIAG) Spec Comments: PATIENT GOING TO CATH LABPROTHROMBIN [id number] 09:38:00 Test Item Value Reference Range Interpretation Comments PROTHROMBIN TIME 12.2 SECONDS 9.2-12.1 H PATIENT (test code = PTP) INTERNATIONAL NORMAL 1.1 The INR is to be used RATIO (test code = only for monitoring INR) ORAL ANTICOAGULANTTH ERAPY. Indication INR Value1. Prophylaxis/lindsay atment of: Venous Thro mbosis, Pulmonary Embol ism 2.0 - 3.02. Prevent ion of systemic emboli sm from: Tissue he art valves 2.0 - 3 .0 Acute myocardia l infarction (to present systemic emboli sm)* 2.0 - 3.0 Valvu lar heart disease 2 .0 - 3.0 Atrial fibrillation 2. 0 - 3.03. Mechanica l prosthetic valv es (high risk) 2.5 - 3.5 * If oral anticoagulant t herapy is elected to preventrecurren t myocardial infa rction, an INR of 2.5-3 .5 isrecommended, consistent with Food and Drug Administrationr ecommen dations. IS PATIENT ON ANTICOAGULANTS ? 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 TO POLICE DETENTION ATTENDANT 1, THROMBOPLASTIN TIME [id number] 09:38:00 Test Item Value Reference Range Interpretation Comments THROMBOPLASTIN TIME 27.1 SECONDS 23.4-37.0 N Therape utic Range PARTIAL (test code = for Hep audrey PTT) EFFECTIVE Heparin IU/mL a PTT Seconds0.3 64.3 0.7 88.8 IS PATIENT ON ANTICOAGULANTS ? 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 TO POLICE DETENTION ATTENDANT 1,GLUBED 2020-07-03 08:24:00 Test Item Value Reference Range Interpretation Comments GLUBED (test code = GLUBED) 135 MG/DL 74-106 H BASIC METABOLIC [id number] 06:53:00 Test Item Value Reference Range Interpretation Comments SODIUM (test code = 135 mmol/L 137-145 L NA) POTASSIUM (test code 4.9 mmol/L 3.4-5.0 N = K) CHLORIDE (test code = 101 mmol/L 98-107 N CL) CARBON DIOXIDE (test 28 mmol/L 22-30 N code = CO2) GLUCOSE (test code = 153 mg/dL 74-106 H GLU) BLOOD UREA NITROGEN 19 mg/dL 9-20 N (test code = BUN) GLOMERULAR FILTRATION 125 >60 The es timated RATE (test code = glomerular filtration GFR) rate is compute d usingpatient ra ce, age (>18), sex, and serum creatinine. If anyof the needed data elements are mi ssing the Laboratory cannot compute an therese mation of the glomerul ar filtration rate . CREATININE (test code 0.7 mg/dL 0.7-1.3 N = CREAT) CALCIUM (test code = 9.1 mg/dL 8.4-10.2 N CA) CBC W/AUTO [id number] 06:42:00 Test Item Value Reference Range Interpretation Comments WHITE BLOOD CELL (test code = 5.6 x10 3/uL 5.0-12.0 N WBC) RED BLOOD CELL (test code = 4.56 x10 6/uL 4.70-6.10 L RBC) HEMOGLOBIN (test code = HGB) 13.1 g/dL 14.0-18.0 L HEMATOCRIT (test code = HCT) 41.1 % 37.0-49.0 N MEAN CELL VOLUME (test code = 90 fL 80-94 N MCV) MEAN CELL HGB (test code = MCH) 28.7 pg 27-31 N MEAN CELL HGB CONCENTRATION 31.9 g/dL 33-37 L (test code = MCHC) RED CELL DISTRIBUTION WIDTH 12.2 % 11.5-15.5 N (test code = RDW) PLATELET COUNT (test code = 436 x10 3/uL 130-400 H PLT) MEAN PLATELET VOLUME (test code 9.3 fL 9.4-16.4 L = MPV) NEUTROPHIL % (test code = NT%) 64.7 % 43-65 N IMMATURE GRANULOCYTE % (test 0.4 % 0.0-2.0 N code = IG%) LYMPHOCYTE % (test code = LY%) 22.3 % 20.5-45.5 N MONOCYTE % (test code = MO%) 9.6 % 5.5-11.7 N EOSINOPHIL % (test code = EO%) 2.1 % 0.9-2.9 N BASOPHIL % (test code = BA%) 0.9 % 0.2-1.0 N NUCLEATED RBC % (test code = 0.0 % 0-1.0 N NRBC%) NEUTROPHIL # (test code = NT#) 3.63 x10 3/uL 2.2-4.8 N IMMATURE GRANULOCYTE # (test 0.02 x10 3/uL 0-0.03 N code = IG#) LYMPHOCYTE # (test code = LY#) 1.25 x10 3/uL 1.3-2.9 L MONOCYTE # (test code = MO#) 0.54 x10 3/uL 0.3-0.8 N EOSINOPHIL # (test code = EO#) 0.12 x10 3/uL 0.0-0.2 N BASOPHIL # (test code = BA#) 0.05 x10 3/uL 0.0-0.1 N [id number] 21:27:00 Test Item Value Reference Range Interpretation Comments GLUBED (test code = GLUBED) 234 MG/DL 74-106 H [id number] 16:22:00 Test Item Value Reference Range Interpretation Comments GLUBED (test code = GLUBED) 195 MG/DL 74-106 H [id number] 12:04:00 Test Item Value Reference Range Interpretation Comments GLUBED (test code = GLUBED) 179 MG/DL 74-106 H [id number] 08:51:00 Test Item Value Reference Range Interpretation Comments GLUBED (test code = GLUBED) 124 MG/DL 74-106 H [id number] 20:53:00 Test Item Value Reference Range Interpretation Comments GLUBED (test code = GLUBED) 129 MG/DL 74-106 H [id number] 18:30:00 Test Item Value Reference Range Interpretation Comments GLUBED (test code = GLUBED) 174 MG/DL 74-106 H [id number] 12:32:00 Test Item Value Reference Range Interpretation Comments GLUBED (test code = GLUBED) 152 MG/DL 74-106 H [id number] 08:40:00 Test Item Value Reference Range Interpretation Comments GLUBED (test code = GLUBED) 98 MG/DL 74-106 N [id number] 20:46:00 Test Item Value Reference Range Interpretation Comments GLUBED (test code = GLUBED) 110 MG/DL 74-106 H - DUP LE ART [id number] 18:07:00 [facility] 1965 Sex: M FAX: [facility]in [place] [phone] [place]: St: ADM FAX: Nathanael Romero Justine [phone] --------- Name: HARJINDER COLUNGA [facility] : 1965 Age/S: 55/M [address] Unit #: [id number] Loc: C.[address] [place] [address] Phys: Mazin Sr DPM R2 Acct: [id number] Dis Date: Status: ADM IN PHONE #: [phone] Exam Date: 06/30/2020 1731 FAX #: [phone] Reason: WOUNDS EXAMS: CPT CODE: [id number] [facility] ART [place] [id number] STUDY: Bilateral lower extremity ultrasound with Doppler. HISTORY: Peripheral vascular disease COMPARISON: None. TECHNIQUE: Grayscale, color, and pulsed Doppler images of the bilateral lower extremities were obtained. FINDINGS: Velocities are as follows (cm/sec): RIGHT LOWER EXTREMITY: Common femoral artery: 121, biphasic Superficial femoral artery: Proximal: 29, monophasic, Mid: 30, monophasic, Distal: 24, monophasic, Popliteal artery: 56, monophasic Anterior tibial artery: 18, monophasic, Posterior tibial artery: 12, monophasic, Peroneal artery: 16, monophasic, Dorsalis pedis: 15, monophasic LEFT LOWER EXTREMITY: Common femoral artery: 44, biphasic Superficial femoral artery: Proximal: 56, triphasic, Mid: 82, triphasic, Distal: 82, biphasic, Popliteal artery: 52, biphasic Anterior tibial artery: 45, monophasic, Posterior tibial artery: 63, monophasic, Peroneal artery: 68, triphasic, Dorsalis pedis: 20, monophasic Right RADAMES: 0.75. The RADAMES: 0.74. IMPRESSION: Increased differential peaksystolic velocity for the right common femoral and proximal superficial femoral arteries with monophasic waveforms distal to the common femoral artery indicative of significant stenosis between these arteries. Left infrapopliteal artery monophasic waveforms consistent with significant arterial diseasedistal to the popliteal artery. Bilateral RADAMES values compatible with moderate arterial disease. PAGE1 Signed Report (CONTINUED) FAX: Mazin Sr Arm [phone] [place]: St: ADM FAX: Nathanael Romero [phone] Name: HARJINDER COLUNGA [facility] : 1965 Age/S: 55/M [address] Unit #: [id number]: [address] [place] [address] Phys: Mazin Sr DPM R2 Acct: [id number] Dis Date: Status: ADM IN PHONE #: [phone] Exam Date: 06/30/2020 1731 FAX #: [phone] Reason: WOUNDS EXAMS: CPT CODE: [id number] DUP LE ART PETER [id number] <Continued> at 1807 Reported and signed by: Donaldo Wen MD CC: Mazin Sr DPM; Nathanael Laureano Technologist: MARK Gallardo Trnscrd Date/Time/By: 06/30/2020 (180) : By: [email or web address] PAGE 2 Signed Report FAX: Mazin Sr Arm [phone] [place]: [facility]: ADM FAX: Nathanael Romero [phone] Name: HARJINDER COLUNGA [facility] : 1965 Age/S: 55/M [address] #: [id number]: [address] [place] [address] Phys: Mazin Sr DPM R2 Acct: [id number] Dis Date: Status: ADM IN PHONE #: [phone] Exam Date: 06/30/2020 1731 FAX #: [phone] Reason: WOUNDS EXAMS: CPT CODE: [id number] DUP LE ART PETER [address]691 <Continued> Orig Print D/T: S: 06/30/2020 (1810) PAGE 3 Signed Report- DOP ART 1-2 LEVELS [id number] 18:07:00 [facility] 1965 Sex: M FAX: Armando moraMazin Adrian [phone] [place]: [facility]: ADM FAX: Pavel Hicks MD [phone] Name: HARJINDER COLUNGA : 1965 Age/S: 55/M [address] Unit #: [id number] Loc: [address] [place] [address] Phys: Mazin Sr DPM R2 Acct: [id number] Dis Date: Status: ADM IN PHONE #: [phone] ExamDate: 06/30/2020 1731 FAX #: [phone] Reason: WOUNDS, HX OF SMOKING, NON PALP PULSES EXAMS: CPT CODE: [id number] DOP ART 1-2 LEVELS PETER [address] STUDY: Bilateral lower extremity ultrasound with Doppler. HISTORY: Peripheral vascular disease COMPARISON: None. TECHNIQUE: Grayscale, color, and pulsed Doppler images of the bilateral lower extremities were obtained. FINDINGS: Velocities are as follows (cm/sec): RIGHT LOWER EXTREMITY: Common femoral artery: 121, biphasic Superficial femoral artery: Proximal: 29, monophasic, Mid: 30, monophasic, Distal: 24, monophasic, Popliteal artery: 56, monophasic Anterior tibial artery: 18, monophasic, Posterior tibial artery: 12, monophasic, Peroneal artery: 16, monophasic, Dorsalis pedis: 15, monophasic LEFT LOWER EXTREMITY: Common femoral artery: 44, biphasic Superficial femoral artery: Proximal: 56, triphasic, Mid: 82, triphasic, Distal: 82, biphasic, Popliteal artery: 52, biphasic Anterior tibial artery: 45, monophasic, Posterior tibial artery: 63, monophasic, Peroneal artery: 68, triphasic, Dorsalis pedis: 20, monophasic Right RADAMES: 0.75. The RADAMES: 0.74. IMPRESSION: Increased differential peak systolic velocity for the right common femoral and proximal superficial femoral arteries with monophasic waveforms distal to the common femoral artery indicative of significant stenosis between these arteries. Left infrapopliteal artery monophasic waveforms consistent with significant arterial disease distal to the popliteal artery. Bilateral RADAMES values compatible with moderate arterial disease. PAGE 1 Signed Report (CONTINUED) FAX: Mazin Sr Arm [phone] [place]: [facility]: ADM FAX: Pavel Hicks MD [phone] Name: HARJINDER COLUNGA [facility] : 1965 Age/S: 55/M [address] Unit #: [id number] Loc: [address] [place] [address] Phys: Mazin Sr DPM R2 Acct: [id number] Dis Date: Status: ADM IN PHONE #: [phone] Exam Date: 06/30/2020 1731 FAX #: [phone] Reason: WOUNDS, HX OF SMOKING, NON PALP PULSES EXAMS: CPT CODE: [id number] DOP ART 1-2 LEVELS PETER [address]6720 <Continued> at 1807 Reported and signed by: Donaldo Wen MD CC: Mazin Sr DPM; Pavel Muñoz MD Technologist: MARK Gallardo Trnscrd Date/Time/By: 06/30/2020 (1807) : By: [email or web address] PAGE 2 Signed Report FAX:Mazin Sr Arm [phone] [place]: [facility]: ADM FAX: Pavel Hicks MD [phone] Name: HARJINDER COLUNGA [facility] : 1965 Age/S: 55/M [address] Unit #: [id number] Loc: [address] [place] [address] Phys: Mazin rS DPM R2 Acct: [id number] Dis Date: Status: ADM IN PHONE #: [phone] Exam Date: 06/30/20201730 FAX #: [phone] Reason: WOUNDS, HX OF SMOKING, NON PALP PULSES EXAMS: CPT CODE: [id number] DOP ART 1-2 LEVELS PETER 87450 <Continued> Orig Print D/T: S: 06/30/2020 (1810) PAGE 3 Signed [id number] 16:25:00 Test Item Value Reference Range Interpretation Comments GLUBED (test code = GLUBED) 244 MG/DL 74-106 H [id number] 12:16:00 Test Item Value Reference Range Interpretation Comments GLUBED (test code = GLUBED) 246 MG/DL 74-106 H [id number] 08:54:00 Test Item Value Reference Range Interpretation Comments GLUBED (test code = GLUBED) 172 MG/DL 74-106 H [id number] 21:00:00 Test Item Value Reference Range Interpretation Comments GLUBED (test code = GLUBED) 118 MG/DL 74-106 H [id number] 15:58:00 Test Item Value Reference Range Interpretation Comments GLUBED (test code = GLUBED) 249 MG/DL 74-106 H [id number] 12:28:00 Test Item Value Reference Range Interpretation Comments GLUBED (test code = GLUBED) 285 MG/DL 74-106 H - MRI LOW EXT W/O CONT [id number] 11:17:00 [facility] : 1965 Sex: M FAX: Mazin Ponce Adrian [phone] [place]: St: ADM FAX: Pavel Hicks MD [phone] [facility] 1965 [facility]S: 55[facility]M [address] Unit #: [id number] Loc: [address] [place] [address] Phys: Mazin Sr Armen DPM R2 Acct: [id number] Dis Date: Status: ADM IN PHONE #: [phone] Exam Date: 06/29/2020 0959 FAX #: [phone] Reason: PETER le WOUNDS IN FORE FOOT EXAMS: CPT CODE: [id number] MRI LOW EXT W/[place] [address] EXAM: - MRI LOW EXT W/O CONT LT HISTORY: PETER le WOUNDS IN FORE FOOT, pain COMPARISON: None available at time of interpretation. TECHNIQUE: Multi sequential, multiplanar noncontrast MR images of the left foot. FINDINGS: Bones: No areas of confluent T1 hypointensity identified. 4 mm subcortical cyst identified at the 4th metatarsal bases. Soft tissues: No drainable fluid collection. Subcutaneous edema at the dorsum of the forefoot is present. Muscles/tendons: Small amount of fluid within the peroneus longus tendon sheath. 0.5 x 0.5 x 1.5 cm ganglion versus varix situated at the plantar aspect of the 3rd metatarsal shaft within the intrinsic foot musculature. Major neurovascular structures: Unremarkable. IMPRESSION: No osteomyelitis. No drainable fluid collection. Mild peroneus longus tenosynovitis. 0.5 x 0.5 x 1.5 cm ganglion versus varix situated at the plantar aspect of the 3rd metatarsal shaft within the intrinsic foot musculature. at 1117 Reported and signed by: Michael Bai MD CC: Mazin Sr DPM; Pavel Muñoz MD Technologist: Wendy Agee [facility] Date/Time/By: 06/29/2020(1117) : By: [email or web address] PAGE 1 Signed Report FAX: Mazin Sr Arm [phone] [place]: St: ADM FAX: Pavel Hicks MD [phone] Name: HARJINDER COLUNGA [facility] : 1965 Age/S: 55/M [address] Unit#: [id number] Loc: [address] [place] [address] Phys: Mazin Sr DPM R2 Acct: [id number] Dis Date: Status: ADM IN PHONE #: [phone] Exam Date: 06/29/2020 0959 FAX #: [phone] Reason:PETER le WOUNDS IN FORE FOOT EXAMS: CPT CODE: [id number] MRI L[place] EXT W/[place] [address] <Continued> Orig Print D/T: S: 06/29/2020 (6877) PAGE 2 Signed Report- MRI LOW EXT W/O CONT RT 2020-06-29 10:16:00 [facility] 1965 Sex: M FAX: Mazin Ponce Arm [phone] [place]: [facility]: ADM FAX: Pavel Hicks MD [phone] [facility] 1965 Age/S: 55[facility]M [address] Unit #: [id number] Loc: [address] [place] [address] Phys: Mzain Sr DPM R2 Acct: [id number] Dis Date: Status: ADM IN PHONE #: [phone] Exam Date: 06/29/2020 0959 FAX #: [phone] Reason: PETER FOOT WOUNDS EXAMS: CPT CODE: [id number] MRI LOW EXT W/[place] [address] EXAM: - MRI LOW EXT W/O CONT RT HISTORY: PETER FOOT WOUNDS COMPARISON: None available at time of interpretation. TECHNIQUE: Multi sequential, multiplanar noncontrast MR images of the right foot. FINDINGS: Bones: No areas of confluent T1 hypointensity identified. Soft tissues: No drainable fluid collection. Muscles/tendons: Small amount of fluid in the peroneus longus tendon sheath. IMPRESSION: No osteomyelitis. No drainable fluid collection. Mild peroneus longus tenosynovitis. at 1016 Reported and signed by: Michael arshad MD CC: Mazin Sr DPM; Pavel Muñoz MD Technologist: Wendy Agee TrnscrdDate/Time/By: 06/29/2020 (1016) : By: [email or web address] PAGE 1 Signed Report FAX: Mazin Sr Arm [phone] [place]: [facility]: ADM FAX: Pavel Hicks MD [phone] Name: HARJINDER COLUNGA : 1965 Age/S: 55/M [address] Unit #: [id number] Loc: [address] [place] [address] Phys: Mazin Sr DPM R2 Acct: [id number] Dis Date: Status: ADM IN PHONE #: [phone] Exam Date: 06/29/2020958 FAX #: [phone] Reason: PETER FOOT WOUNDS EXAMS: CPT CODE: [id number] MRI LOW EXT W/[place] [address] <Continued> Orig Print D/T: S: 06/29/2020 (1020) PAGE 2 Signed ReportCOMPREHENSIVE METABOLIC [id number] 09:31:00 Test Item Value Reference Range Interpretation Comments SODIUM (test code = 134 mmol/L 137-145 L NA) POTASSIUM (test code 5.0 mmol/L 3.4-5.0 N = K) CHLORIDE (test code 96 mmol/L 98-107 L = CL) CARBON DIOXIDE (test 32 mmol/L 22-30 H code = CO2) GLUCOSE (test code = 202 mg/dL 74-106 H GLU) BLOOD UREA NITROGEN 12 mg/dL 9-20 N (test code = BUN) GLOMERULAR 125 >60 The estimated FILTRATION RATE glomerular f iltration (test code = GFR) rate is co mputed usingpatient ra ce, age (>18), sex, and serum creatinine. If anyof the needed data elements are mi ssing the Laboratory cannot compute an therese mation of the glomerul ar filtration rate . CREATININE (test 0.7 mg/dL 0.7-1.3 N code = CREAT) TOTAL PROTEIN (test 7.8 g/dL 6.3-8.2 N code = PROT) " A positive bias m ay occur for patients ta richie Eltrombopag(a b one marrow stimulan t used to treat thrombocytopeni a andaplastic anemia)." ALBUMIN (test code = 3.9 g/dL 3.5-5.0 N ALB) CALCIUM (test code = 9.1 mg/dL 8.4-10.2 N CA) BILIRUBIN TOTAL 0.7 mg/dL 0.2-1.3 N "A positive bias may (test code = BILT) occur for patients taking Eltrombo pag(a bone marrow sti mulant used to treat thrombocytopeni a andaplastic ane livan)." BILIRUBIN CONJUGATED 0 mg/dL 0-0.3 N "A posi tive bias may (test code = BILCON) occur f or patients taking Eltrombo pag(a bone marrow sti mulant used to treat thrombocytopeni a andaplastic ane livan)." C ONJUGATE D BILIRUBIN IS THE REPLACEMENT ASS AY FOR DIRECTBILIRUBIN . BILIRUBIN 0.5 mg/dL 0-1.1 N UNCONJUGATED (test code = BILUNC) SGOT/AST (test code 22 U/L 15-46 N = AST) SGPT/ALT (test code 12 U/L 0-34 N = ALT) ALKALINE PHOSPHATASE 105 U/L 38-126 N (test code = ALKP) COMPREHENSIVE METABOLIC [id number] 09:30:00 Test Item Value Reference Range Interpretation Comments SODIUM (test code = 134 mmol/L 137-145 L NA) POTASSIUM (test code 5.0 mmol/L 3.4-5.0 N = K) CHLORIDE (test code 96 mmol/L 98-107 L = CL) CARBON DIOXIDE (test 32 mmol/L 22-30 H code = CO2) GLUCOSE (test code = 202 mg/dL 74-106 H GLU) BLOOD UREA NITROGEN 12 mg/dL 9-20 N (test code = BUN) GLOMERULAR 125 >60 The estimated FILTRATION RATE glomerular f iltration (test code = GFR) rate is co mputed usingpatient ra ce, age (>18), sex, and serum creatinine. If anyof the needed data elements are mi ssing the Laboratory cannot compute an therese mation of the glomerul ar filtration rate . CREATININE (test 0.7 mg/dL 0.7-1.3 N code = CREAT) TOTAL PROTEIN (test 7.8 g/dL 6.3-8.2 N code = PROT) " A positive bias m ay occur for patients ta richie Eltrombopag(a b one marrow stimulan t used to treat thrombocytopeni a andaplastic anemia)." ALBUMIN (test code = 3.9 g/dL 3.5-5.0 N ALB) CALCIUM (test code = 9.1 mg/dL 8.4-10.2 N CA) BILIRUBIN TOTAL 0.7 mg/dL 0.2-1.3 N "A positive bias may (test code = BILT) occur for patients taking Eltrombo pag(a bone marrow sti mulant used to treat thrombocytopeni a andaplastic ane livan)." BILIRUBIN CONJUGATED 0 mg/dL 0-0.3 N "A posi tive bias may (test code = BILCON) occur f or patients taking Eltrombo pag(a bone marrow sti mulant used to treat thrombocytopeni a andaplastic ane livan)." C ONJUGATE D BILIRUBIN IS THE REPLACEMENT ASS AY FOR DIRECTBILIRUBIN . BILIRUBIN 0.5 mg/dL 0-1.1 N UNCONJUGATED (test code = BILUNC) SGOT/AST (test code 22 U/L 15-46 N = AST) SGPT/ALT (test code U/L 0-34 = ALT) ALKALINE PHOSPHATASE 105 U/L 38-126 N (test code = ALKP) [id number] 09:28:00 Test Item Value Reference Range Interpretation Comments GLUBED (test code = GLUBED) 184 MG/DL 74-106 H CBC W/AUTO [id number] 07:48:00 Test Item Value Reference Range Interpretation Comments WHITE BLOOD CELL (test code = 6.5 x10 3/uL 5.0-12.0 N WBC) RED BLOOD CELL (test code = 4.51 x10 6/uL 4.70-6.10 L RBC) HEMOGLOBIN (test code = HGB) 13.2 g/dL 14.0-18.0 L HEMATOCRIT (test code = HCT) 39.0 % 37.0-49.0 N MEAN CELL VOLUME (test code = 87 fL 80-94 N MCV) MEAN CELL HGB (test code = MCH) 29.3 pg 27-31 N MEAN CELL HGB CONCENTRATION 33.8 g/dL 33-37 N (test code = MCHC) RED CELL DISTRIBUTION WIDTH 12.1 % 11.5-15.5 N (test code = RDW) PLATELET COUNT (test code = 421 x10 3/uL 130-400 H PLT) MEAN PLATELET VOLUME (test code 9.4 fL 9.4-16.4 N = MPV) NEUTROPHIL % (test code = NT%) 65.9 % 43-65 H IMMATURE GRANULOCYTE % (test 0.3 % 0.0-2.0 N code = IG%) LYMPHOCYTE % (test code = LY%) 24.1 % 20.5-45.5 N MONOCYTE % (test code = MO%) 7.7 % 5.5-11.7 N EOSINOPHIL % (test code = EO%) 1.5 % 0.9-2.9 N BASOPHIL % (test code = BA%) 0.5 % 0.2-1.0 N NUCLEATED RBC % (test code = 0.0 % 0-1.0 N NRBC%) NEUTROPHIL # (test code = NT#) 4.30 x10 3/uL 2.2-4.8 N IMMATURE GRANULOCYTE # (test 0.02 x10 3/uL 0-0.03 N code = IG#) LYMPHOCYTE # (test code = LY#) 1.57 x10 3/uL 1.3-2.9 N MONOCYTE # (test code = MO#) 0.50 x10 3/uL 0.3-0.8 N EOSINOPHIL # (test code = EO#) 0.10 x10 3/uL 0.0-0.2 N BASOPHIL # (test code = BA#) 0.03 x10 3/uL 0.0-0.1 N SED [id number] 07:48:00 Test Item Value Reference Range Interpretation Comments SED RATE (test code = SEDW) 85 mm/hr 0-20 H HGBA1C - GLYCOSYLATED [id number] 07:08:00 Test Item Value Reference Range Interpretation Comments GLYCOSYLATED 11.8 % 0-5.9 H Current guideli wood HEMOGLOBIN (HA1C) recommend a treatment goal (test code = GLYHGB) of <7% fordiabetic patients. A1c m ay be overestimated i n diabeticpatient s exhibiting poor control an d who are alsoheterozygou s or homozygous for HgbS or HgbC. Totalglyc ohemoglobin is a better ind icator of diabetic contro l inpatients with these hemo globin variants. CBC W/AUTO [id number] 06:43:00 Test Item Value Reference Range Interpretation Comments WHITE BLOOD CELL (test code = 6.5 x10 3/uL 5.0-12.0 N WBC) RED BLOOD CELL (test code = 4.51 x10 6/uL 4.70-6.10 L RBC) HEMOGLOBIN (test code = HGB) 13.2 g/dL 14.0-18.0 L HEMATOCRIT (test code = HCT) 39.0 % 37.0-49.0 N MEAN CELL VOLUME (test code = 87 fL 80-94 N MCV) MEAN CELL HGB (test code = MCH) 29.3 pg 27-31 N MEAN CELL HGB CONCENTRATION 33.8 g/dL 33-37 N (test code = MCHC) RED CELL DISTRIBUTION WIDTH 12.1 % 11.5-15.5 N (test code = RDW) PLATELET COUNT (test code = 421 x10 3/uL 130-400 H PLT) MEAN PLATELET VOLUME (test code 9.4 fL 9.4-16.4 N = MPV) NEUTROPHIL % (test code = NT%) 65.9 % 43-65 H IMMATURE GRANULOCYTE % (test 0.3 % 0.0-2.0 N code = IG%) LYMPHOCYTE % (test code = LY%) 24.1 % 20.5-45.5 N MONOCYTE % (test code = MO%) 7.7 % 5.5-11.7 N EOSINOPHIL % (test code = EO%) 1.5 % 0.9-2.9 N BASOPHIL % (test code = BA%) 0.5 % 0.2-1.0 N NUCLEATED RBC % (test code = 0.0 % 0-1.0 N NRBC%) NEUTROPHIL # (test code = NT#) 4.30 x10 3/uL 2.2-4.8 N IMMATURE GRANULOCYTE # (test 0.02 x10 3/uL 0-0.03 N code = IG#) LYMPHOCYTE # (test code = LY#) 1.57 x10 3/uL 1.3-2.9 N MONOCYTE # (test code = MO#) 0.50 x10 3/uL 0.3-0.8 N EOSINOPHIL # (test code = EO#) 0.10 x10 3/uL 0.0-0.2 N BASOPHIL # (test code = BA#) 0.03 x10 3/uL 0.0-0.1 N SED [id number] 06:43:00 Test Item Value Reference Range Interpretation Comments SED RATE (test code = SEDW) mm/hr 0-20 LIPID PROFILE (CORONARY RISK)2020-06-29 05:49:00 Test Item Value Reference Range Interpretation Comments TRIGLYCERIDES (test 122 mg/dL TRIGLYCE RIDES code = TRIG) REFERENCE RANGE:Normal: < 150 mg/dLBorderline High: 150-199 mg/dLHigh: 200- 499 mg/dLVery High: >=500 mg/dL CHOLESTEROL (test 150 mg/dL CHOLESTERO L code = CHOL) REFERENCE RANGE:DESIRABLE : < 200 mg/dLBORDER LINE: 200-239 mg/dLHI GH: >=240 mg/dL HDL CHOLESTEROL (test 26 mg/dL 40-59 L code = HDL) LIPOPROTEIN LDL (test 104.88 mg/dL 32-99 H code = LDLC) CORONARY RISK FACTOR 5.77 CHOL/H DL RISK MALE: (test code = RISK) 1/2 AVG 3 .43 FEMALE: 1/2 AVG 3.27 AV G 4.97 AVG 4.44 2X AVG 9.55 2X AVG 7.05 3X AVG 23.39 3X AVG 11.04~~~~~~~~~~ ~~~~~ ~~~~~~~~~~~~~~~ ~~~~~ ~~~~~~~~~~~~~~~ ~~~~~ ~~~~~National Cholesterol Education (NCEP ) Guidelines:~~~~ ~~~~~ ~~~~~~~~~~~~~~~ ~~~~~ ~~~~~~~~~~~~~~~ ~~~~~ ~~~~~~~~~~~ H DL Cholesterol<4 0mg/d L: HDL Choleste rol (Major risk fac tor for CHD)>60mg/d L: HDL Cholesterol (Negative risk factor for CHD)40-59mg/dL: Borderline Risk LDL Cholesterol<1 00mg/ dL: Desirable L DL-C qikjbsofjfmon78 0-159 mg/dL: Borderli ne High Risk LDL-C efurlqsuhfclo98 0-189 mg/dL: High ris k LDL-C concentra tion HDL-LDL Cholest adi is affected by a number of facto rs suchas smoking, age and sex.~~~~~~~~~~~ ~~~~~ ~~~~~~~~~~~~~~~ ~~~~~ ~~~~~~~~~~~~~~~ ~~~~~ ~~~~ C REACTIVE [id number] 05:49:00 Test Item Value Reference Range Interpretation Comments C REACTIVE PROTEIN (test code = 51.3 mg/L 0-9 H CRP) LIPID PROFILE (CORONARY RISK)2020-06-29 05:42:00 Test Item Value Reference Range Interpretation Comments TRIGLYCERIDES (test 122 mg/dL TRIGLYCE RIDES code = TRIG) REFERENCE RANGE:Normal: < 150 mg/dLBorderline High: 150-199 mg/dLHi gh: 200-499 mg/dLVe ry High: >=500 mg/ dL CHOLESTEROL (test code 150 mg/dL DAMON STEROL REFERENCE = CHOL) RANGE:DESIRABLE : < 200 mg/dLBORDERLINE : 200-239 mg/dLHI GH: >=240 mg/dL HDL CHOLESTEROL (test 26 mg/dL 40-59 L code = HDL) LIPOPROTEIN LDL (test mg/dL 32-99 code = LDLC) CORONARY RISK FACTOR 5.77 CHOL/H DL RISK MALE: (test code = RISK) 1/2 AVG 3 .43 FEMALE: 1/2 AVG 3.27 AV G 4.97 AVG 4.44 2X AVG 9.55 2X AVG 7.05 3X AVG 23.39 3X AVG 11.04~~~~~~~~~~ ~~~~~~~ ~~~~~~~~~~~~~~~ ~~~~~~~ ~~~~~~~~~~~~~~~ ~~~~~~N ational Cholest adi Education (NCEP ) Guidelines:~~~~ ~~~~~~~ ~~~~~~~~~~~~~~~ ~~~~~~~ ~~~~~~~~~~~~~~~ ~~~~~~~ ~~~~~ HDL Cholesterol<4 0mg/dL: HDL Cholesterol (Major risk factor for CHD)>60mg/dL: H DL Cholesterol (Ne gative risk factor for CHD)40-59mg/dL: Borderline Risk LDL Cholesterol<1 00mg/dL : Desirable LDL -C cyjwpndwgduuz03 0-159mg /dL: Borderline High Risk LDL-C ssbbceuxmjcwz13 0-189mg /dL: High risk LDL-C concentration H DL-LDL Cholesterol is affected by a n umber of factors such as smoking, age an d sex.~~~~~~~~~~~ ~~~~~~~ ~~~~~~~~~~~~~~~ ~~~~~~~ ~~~~~~~~~~~~~~~ ~~~~~ C REACTIVE [id number] 05:42:00 Test Item Value Reference Range Interpretation Comments C REACTIVE PROTEIN (test code = 51.3 mg/L 0-9 H CRP) [id number] 20:47:00 Test Item Value Reference Range Interpretation Comments GLUBED (test code = GLUBED) 253 MG/DL 74-106 H BASIC METABOLIC [id number] 17:16:00 Test Item Value Reference Range Interpretation Comments SODIUM (test code = 130 mmol/L 137-145 L NA) POTASSIUM (test code 4.6 mmol/L 3.4-5.0 N = K) CHLORIDE (test code = 93 mmol/L 98-107 L CL) CARBON DIOXIDE (test 29 mmol/L 22-30 N code = CO2) GLUCOSE (test code = 404 mg/dL 74-106 HH Critica l Value GLU) reported toFirs t Name:[id number] [facility] Name:RESULTS RE AD BACK AND VERIFIEDby C.LAB.AC2, on 06/28/20, @ 171 6. BLOOD UREA NITROGEN 13 mg/dL 9-20 N (test code = BUN) GLOMERULAR FILTRATION 125 >60 The es timated RATE (test code = glomerular filtration GFR) rate is compute d usingpatient ra ce, age (>18), sex, and serum creatinine. If anyof the needed data elements are mi ssing the Laboratory cannot compute an therese mation of the glomerul ar filtration rate . CREATININE (test code 0.7 mg/dL 0.7-1.3 N = CREAT) CALCIUM (test code = 9.1 mg/dL 8.4-10.2 N CA) LIVER FUNCTION [id number] 17:16:00 Test Item Value Reference Range Interpretation Comments TOTAL PROTEIN (test 7.7 g/dL 6.3-8.2 N code = PROT) "A positive bias may occur for patients taking Eltrombopag(a b one marrow stimulan t used to treat thrombocy topenia andaplastic anemia)." ALBUMIN (test code = 3.9 g/dL 3.5-5.0 N ALB) BILIRUBIN TOTAL 0.3 mg/dL 0.2-1.3 N "A positive bias may (test code = BILT) occur for patients taking Eltrombo pag(a bone marrow sti mulant used to treat thrombocytopeni a andaplastic ane livan)." BILIRUBIN CONJUGATED 0 mg/dL 0-0.3 N "A posi tive bias may (test code = BILCON) occur f or patients taking Eltrombo pag(a bone marrow sti mulant used to treat thrombocytopeni a andaplastic ane livan)." CON JUGATED BILIRUBIN IS TH E REPLACEMENT ASS AY FOR DIRECTBILIRUBIN . BILIRUBIN 0.1 mg/dL 0-1.1 N UNCONJUGATED (test code = BILUNC) SGOT/AST (test code 26 U/L 15-46 N = AST) SGPT/ALT (test code 13 U/L 0-34 N = ALT) ALKALINE PHOSPHATASE 100 U/L 38-126 N (test code = ALKP) LACTIC [id number] 17:04:00 Test Item Value Reference Range Interpretation Comments LACTIC ACID (test code = LACT) 1.7 mmol/L 0.7-2.0 N - XR FOOT 3 + V [id number] 17:00:00 [facility] 1965 Sex: M FAX: Giovany Landa MD R[address] [place]: St: REG Name: HARJINDER COLNUGA [facility] : 1965 Age/S: 55/M [address] Unit #: [id number] Loc: [place] [address] Phys: Giovany Landa MD R1 Acct: [id number] Dis Date: Status:REG ER PHONE #: [phone] Exam Date: 06/28/2020 164 FAX #: [phone] Reason: left foot wound EXAMS: CPT CODE: [id number] XR FOOT 3 + [place] LT [id number] EXAM: - XR FOOT 3 + V LT HISTORY: left foot wound COMPARISON: None available time of interpretation. FINDINGS: Frontal, oblique, and lateral views of the left foot are provided. Chronic erosion in the 4th distal phalanx. No osseous erosion, periosteal re action, or local demineralization is noted to suggest the presence of infection. Vascular calcifications are noted. IMPRESSION: No radiographic evidence of osteomyelitis. If indicated, a bone scan or MRI are more sensitive for the detection of osteomyelitis. at 1700 Reported and signed by: Michael Bai MD CC: Giovany Landa MD Technologist: Lindsey Ha; STUDENT 2ND YEAR Trnscrd Date/Time/By: 06/28/2020 (1700) : By: [email or web address] PAGE 1 Signed Report FAX: Giovany Landa MD R[address] [place]: St: REG Name: HARJINDER COLUNGA [facility] : 1965 Age/S: 55/M [address] Unit #: [id number] Loc: [place] [address] Phys: Giovany Landa MD R1 Acct: [id number] Date: Status: REG ER PHONE #: [phone] Exam Date: 06/28/2020 1649 FAX #: [phone] Reason: left foot wound EXAMS: CPT CODE: [id number] XR FOOT 3 + V LT 15746 <Continued> Orig Print D/T:S: 06/28/2020 (3320) PAGE 2 Signed ReportUA RFLX MICR CULT IF [id number] 16:19:00 Test Item Value Reference Range Interpretation Comments UA COLOR (test code Yellow Yellow = COLU) UA APPEARANCE (test Clear Clear code = APPU) UA GLUCOSE DIPSTICK >=500 (3+) Negative A (test code = DGLUU) UA BILIRUBIN Negative Negative DIPSTICK (test code = BILU) UA KETONE DIPSTICK Negative mg/dL Negative (test code = KETU) UA SPECIFIC GRAVITY 1.029 <1.030 (test code = SGU) UA BLOOD DIPSTICK 1+ Negative A (test code = MARIA ELENA) UA PH DIPSTICK (test 5.0 5.0-8.0 code = MICHELL) UA PROTEIN DIPSTICK 30 (1+) mg/dL Negative A (test code = PROU) UA UROBILINOGEN 2.0 mg/dL Negative A DIPSTICK (test code = URO) UA NITRITE DIPSTICK Negative Negative (test code = SHANNON) UA LEUKOCYTE NEGATIVE Negative ESTERASE DIPSTICK (test code = LEUU) UA WBC (test code = 0-3 /HPF See_Comment <10 WBC/ HPF = WBCUR) PYURIA ABSENT URINE CULTURE N OT INDICATED [Automated message] The system which generated this result transmit yana reference range : <4-5. The reference range was not used to interpret this result as normal/abnormal . UA RBC (test code = 4-5 /HPF See_Comment A [Automa yana RBCU) message] The system which generated this result transmit yana reference range : <4-5. The reference range was not used to interpret this result as normal/abnormal . UA BACTERIA (test None /HPF None-Rare code = BACU) UA SQUAMOUS CELLS 0-5 (RARE) /HPF See_Comment [Autom ated (test code = SQU) message] T he system which generated this result transmit yana reference range : 0-5 (RARE). The reference range was not used to interpret this result as normal/abnormal . Indication for culture: RiskForSepsis-no oth srcSOURCE OF URINE: CLEAN CATCHCBC W/AUTO [id number] 15:48:00 Test Item Value Reference Range Interpretation Comments WHITE BLOOD CELL (test code = 7.6 x10 3/uL 5.0-12.0 N WBC) RED BLOOD CELL (test code = 4.52 x10 6/uL 4.70-6.10 L RBC) HEMOGLOBIN (test code = HGB) 13.1 g/dL 14.0-18.0 L HEMATOCRIT (test code = HCT) 39.6 % 37.0-49.0 N MEAN CELL VOLUME (test code = 88 fL 80-94 N MCV) MEAN CELL HGB (test code = MCH) 29.0 pg 27-31 N MEAN CELL HGB CONCENTRATION 33.1 g/dL 33-37 N (test code = MCHC) RED CELL DISTRIBUTION WIDTH 12.2 % 11.5-15.5 N (test code = RDW) PLATELET COUNT (test code = 484 x10 3/uL 130-400 H PLT) MEAN PLATELET VOLUME (test code 9.6 fL 9.4-16.4 N = MPV) NEUTROPHIL % (test code = NT%) 74.7 % 43-65 H IMMATURE GRANULOCYTE % (test 0.4 % 0.0-2.0 N code = IG%) LYMPHOCYTE % (test code = LY%) 17.3 % 20.5-45.5 L MONOCYTE % (test code = MO%) 6.0 % 5.5-11.7 N EOSINOPHIL % (test code = EO%) 0.9 % 0.9-2.9 N BASOPHIL % (test code = BA%) 0.7 % 0.2-1.0 N NUCLEATED RBC % (test code = 0.0 % 0-1.0 N NRBC%) NEUTROPHIL # (test code = NT#) 5.68 x10 3/uL 2.2-4.8 H IMMATURE GRANULOCYTE # (test 0.03 x10 3/uL 0-0.03 N code = IG#) LYMPHOCYTE # (test code = LY#) 1.32 x10 3/uL 1.3-2.9 N MONOCYTE # (test code = MO#) 0.46 x10 3/uL 0.3-0.8 N EOSINOPHIL # (test code = EO#) 0.07 x10 3/uL 0.0-0.2 N BASOPHIL # (test code = BA#) 0.05 x10 3/uL 0.0-0.1 N - XR CHEST 1 [id number] 15:36:00 [facility] WOODName: HARJINDER COLUNGA : 1965 Sex: M FAX: Mi Ellis NP [place]: [facility]: PRE --------- Name: [place]JINDER [place] : 1965 Age/S: 55/M [address] Unit #: [id number] Loc: [place] [address] Phys: Mi Ellis NP Acct: [id number] Dis Date: Status: PRE ERPHONE #: [phone] Exam Date: 06/28/2020 1533 FAX #: [phone] Reason: CODE SEPSIS EXAMS: CPTCODE: [id number] XR CHEST 1 V 35157 EXAMINATION: Frontal chest radiograph INDICATION: Code sepsis COMPARISON: 02/27/2016 FINDINGS: Clear lungs. No pleural effusion or pneumothorax. Normal cardiomediastinal silhouette. IMPRESSION: No acute abnormality identified. at 1536 Reported and signed by: Richard Linda M.D. 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 No soft tissue fluid collection demonstrated. No cystic or solid mass identified. IMPRESSION: 1. Soft tissue edema without discrete dominant fluid collection or cystic or solid mass lesion. at 1547 Reported and signed by: Donaldo Tang M.D. CC: Rod Cerda NP Technologist: Ely Lopez RDMS Trnscrbd D/ (0687) MerRXC2 Probe: [id number] Orig Print D/T: S: 02/27/2020 (1550) Probe: CAMELIA Vora NAME: [address] PHYS: JOSE MARIA - Rod Cerda, [place] [address] : 1965 AGE: 54 SEX: M LOC: VANNA PHONE #: [phone] EXAM DATE: 02/27/2020 STATUS: REG ER FAX #: [phone] RAD NO: Page 1 Signed ReportBASIC METABOLIC [id number] 15:20:00 Test Item Value Reference Range Interpretation Comments SODIUM (test code = 127.0 mmol/L 133-144 L NA) POTASSIUM (test code 4.3 mmol/L 3.5-5.1 N = K) CHLORIDE (test code 95 mmol/L 95-105 N = CL) CARBON DIOXIDE (test 27 mmol/L 21-32 N code = CO2) ANION GAP (test code 5.0 GAP calc 4.0-15.0 N = GAP) GLUCOSE (test code = 427 MG/DL 70-110 HH ON 12/08 AT GLU) 1520, a.STF.MB8 6 CALLED TO LUDIN LANG. The rep ort was confirmed b y read back toño cols Y,N: Y. BLOOD UREA NITROGEN 14 MG/DL 7-18 N (test code = BUN) CREATININE (test 0.95 MG/DL 0.55-1.30 N Results may be code = CREAT) depressed if patient is takingN-Acetylc yste ine (NAC) and Metamizole (Dipyrone). CALCIUM (test code = 9.1 MG/DL 8.5-10.1 N CA) INDEX HEMOLYSIS 2 TRACE 10-25 1 NORMAL (test code = MG Index/DL HEMINDEX) INDEX ICTERIC (test 1 NORMAL <2 MG 1 NORMAL code = ICTINDEX) Index/DL INDEX LIPEMIA (test 1 NORMAL <50 MG 1 NORMAL code = LIPINDEX) Index/DL GLUCOSE BEDSIDE [id number] 14:32:00 Test Item Value Reference Range Interpretation Comments GLUCOSE BEDSIDE 459 MG/DL 70-119 HH LOW/HIGH KVNG RT VALUE - TESTING (test code = ACTION REQUIRED GLUBED) - CT ABD PELVIS W/O [id number] 16:45:00 Name: HARJINDER COLUNGA FSED : 1965 Age/S: 54 / M [address] Unit #: [id number] Loc: [address] Phys: Brnenan Dupont MD [place], [place] [address] Acct: [id number] Dis Date: Status: REG ER PHONE #: Exam Date: 10/08/2019 5324 FAX #: Reason: R sided flan pain EXAMS: CPT CODE: [id number] CT ABD PELVIS W/O CONT 07520 EXAM: CT of the abdomen and pelvis without contrast; INFORMATION: Right-sided flank pain; TECHNIQUE: CT dose reduction protocol; Renal stone protocol; FINDINGS: The kidneys are of normal size and shape; no calcifications and no hydronephrosis. No evidence of ureteral stones. No evidence of appendicitis or other acute bowel abnormalities. Parenchymal organs of the abdomen and the biliary system are unremarkable. No pelvic mass lesions; no abnormal fluid collections. Calcified plaques in the abdominal aorta and iliofemoral arteries. Scans through the lung bases are clear. IMPRESSION: 1. No evidence of renal or ureteral stones or of obstructive uropathy. 2. No evidence of acute abdominal or pelvic abnormalities. Location code: [facility] at 1645 Reported and signed by: Feliciano Mcdaniel M.D. 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 [facility] URINALYSIS [id number] 14:44:00 Test Item Value Reference Range Interpretation Comments UA COLOR (test code = YELLOW YELLOW COLU) UA APPEARANCE (test code = SLIGHTLY HAZY CLEAR A APPU) UA GLUCOSE DIPSTICK (test 300-500 (3+) mg/dL NEGATIVE code = DGLUU) UA BILIRUBIN DIPSTICK NEGATIVE NEGATIVE (test code = BILU) UA KETONE DIPSTICK (test NEGATIVE mg/dL NEGATIVE code = KETU) UA SPECIFIC GRAVITY (test 1.020 1.001-1.035 code = SGU) UA BLOOD DIPSTICK (test TRACE NEGATIVE code = MARIA ELENA) UA PH DIPSTICK (test code 6.0 5.0-8.0 = MICHELL) UA PROTEIN DIPSTICK (test 1+ mg/dL Neg-15 code = PROU) UA UROBILINIOGEN DIPSTICK 0.2 mg/dL 0.0-0.2 (test code = URO) UA NITRITE DIPSTICK (test NEGATIVE NEGATIVE code = SHANNON) UA LEUKOCYTE ESTERASE NEGATIVE uL NEGATIVE DIPSTICK (test code = LEUU) UA MICROSCOPIC NEEDED? YES (test code = UAMICRO) UA WBC (test code = WBCU) per HPF 0-5 UA RBC (test code = RBCU) per HPF 0-5 UA EPITHELIAL CELLS (test per HPF Few code = EPIU) UA BACTERIA (test code = per HPF NONE BACU) URINALYSIS [id number] 14:44:00 Test Item Value Reference Range Interpretation Comments UA COLOR (test code = YELLOW YELLOW COLU) UA APPEARANCE (test code SLIGHTLY HAZY CLEAR A = APPU) UA GLUCOSE DIPSTICK (test 300-500 (3+) mg/dL NEGATIVE code = DGLUU) UA BILIRUBIN DIPSTICK NEGATIVE NEGATIVE (test code = BILU) UA KETONE DIPSTICK (test NEGATIVE mg/dL NEGATIVE code = KETU) UA SPECIFIC GRAVITY (test 1.020 1.001-1.035 code = SGU) UA BLOOD DIPSTICK (test TRACE NEGATIVE code = MARIA ELENA) UA PH DIPSTICK (test code 6.0 5.0-8.0 = MICHELL) UA PROTEIN DIPSTICK (test 1+ mg/dL Neg-15 code = PROU) UA UROBILINIOGEN DIPSTICK 0.2 mg/dL 0.0-0.2 (test code = URO) UA NITRITE DIPSTICK (test NEGATIVE NEGATIVE code = SHANNON) UA LEUKOCYTE ESTERASE NEGATIVE uL NEGATIVE DIPSTICK (test code = LEUU) UA MICROSCOPIC NEEDED? YES (test code = UAMICRO) UA WBC (test code = WBCU) 0-5 per HPF 0-5 UA RBC (test code = RBCU) NONE SEEN per HPF 0-5 UA EPITHELIAL CELLS (test Rare (0-1/hpf) per Few code = EPIU) HPF UA BACTERIA (test code = TRACE per HPF NONE BACU) URINALYSIS [id number] 14:44:00 Test Item Value Reference Range Interpretation Comments UA COLOR (test code = YELLOW YELLOW COLU) UA APPEARANCE (test code = SLIGHTLY HAZY CLEAR A APPU) UA GLUCOSE DIPSTICK (test 300-500 (3+) mg/dL NEGATIVE code = DGLUU) UA BILIRUBIN DIPSTICK NEGATIVE NEGATIVE (test code = BILU) UA KETONE DIPSTICK (test NEGATIVE mg/dL NEGATIVE code = KETU) UA SPECIFIC GRAVITY (test 1.020 1.001-1.035 code = SGU) UA BLOOD DIPSTICK (test TRACE NEGATIVE code = MARIA ELENA) UA PH DIPSTICK (test code 6.0 5.0-8.0 = MICHELL) UA PROTEIN DIPSTICK (test 1+ mg/dL Neg-15 code = PROU) UA UROBILINIOGEN DIPSTICK 0.2 mg/dL 0.0-0.2 (test code = URO) UA NITRITE DIPSTICK (test NEGATIVE NEGATIVE code = SHANNON) UA LEUKOCYTE ESTERASE NEGATIVE uL NEGATIVE DIPSTICK (test code = LEUU) UA MICROSCOPIC NEEDED? YES (test code = UAMICRO) UA WBC (test code = WBCU) per HPF 0-5 UA RBC (test code = RBCU) per HPF 0-5 UA EPITHELIAL CELLS (test per HPF Few code = EPIU) UA BACTERIA (test code = per HPF NONE BACU) URINALYSIS W/O [id number] 14:41:00 Test Item Value Reference Range Interpretation Comments UA COLOR (test code = YELLOW YELLOW COLU) UA APPEARANCE (test code = SLIGHTLY HAZY CLEAR A APPU) UA GLUCOSE DIPSTICK (test 300-500 (3+) mg/dL NEGATIVE code = DGLUU) UA BILIRUBIN DIPSTICK NEGATIVE NEGATIVE (test code = BILU) UA KETONE DIPSTICK (test NEGATIVE mg/dL NEGATIVE code = KETU) UA SPECIFIC GRAVITY (test 1.020 1.001-1.035 code = SGU) UA BLOOD DIPSTICK (test TRACE NEGATIVE code = MARIA ELENA) UA PH DIPSTICK (test code 6.0 5.0-8.0 = MICHELL) UA PROTEIN DIPSTICK (test 1+ mg/dL Neg-15 code = PROU) UA UROBILINIOGEN DIPSTICK 0.2 mg/dL 0.0-0.2 (test code = URO) UA NITRITE DIPSTICK (test NEGATIVE NEGATIVE code = SHANNON) UA LEUKOCYTE ESTERASE NEGATIVE uL NEGATIVE DIPSTICK (test code = LEUU) UA MICROSCOPIC NEEDED? (test code = UAMICRO) COMPREHENSIVE METABOLIC [id number] 13:06:00 Test Item Value Reference Range Interpretation Comments SODIUM (test code = NA) 135 mmol/L 128-145 N POTASSIUM (test code = K) 3.9 mmol/L 3.5-5.1 N CHLORIDE (test code = CL) 100.0 mmol/L 98-107 N CARBON DIOXIDE (test code = CO2) 23.6 mmol/L 22-29 N ANION GAP (test code = GAP) 15 mmol/L 10-20 N GLUCOSE (test code = GLU) 355 mg/dL 70-110 H BLOOD UREA NITROGEN (test code = 7 mg/dL 7-22 N BUN) CREATININE (test code = CREAT) 1.00 mg/dL 0.55-1.3 N BUN/CREATININE RATIO (test code 7.0 10-20 L = BUN/CREA) TOTAL PROTEIN (test code = PROT) 6.5 gram/dL 6.1-7.8 N ALBUMIN (test code = ALB) 3.3 g/dL 3.3-4.4 N GLOBULIN (test code = GLOB) 3.2 G/DL 1-10 N ALBUMIN/GLOBULIN RATIO (test 1.0 0.75-1.50 N code = A/G) CALCIUM (test code = CA) 7.8 mg/dL 8.0-10.5 L BILIRUBIN TOTAL (test code = 0.40 mg/dL 0.2-1.2 N BILT) SGOT/AST (test code = AST) 18 U/L 10-39 N SGPT/ALT (test code = ALT) 13 U/L 10-69 N ALKALINE PHOSPHATASE TOTAL (test 73 U/L 50-139 N code = ALKP) CBC W/AUTO [id number] 12:54:00 Test Item Value Reference Range Interpretation Comments WHITE BLOOD CELL (test code = 5.7 K/mm3 4.5-12.5 N WBC) RED BLOOD CELL (test code = 4.29 mill/mm3 4.0-5.8 N RBC) HEMOGLOBIN (test code = HGB) 12.8 gram/dL 13.0-17.5 L HEMATOCRIT (test code = HCT) 38.3 % 42.0-52.0 L MEAN CELL VOLUME (test code = 89.3 fL 80-98 N MCV) MEAN CELL HGB (test code = MCH) 29.8 picogram 27.0-33.0 N MEAN CELL HGB CONCETRATION 33.4 gram/dL 33.0-36.0 N (test code = MCHC) RED CELL DISTRIBUTION WIDTH 12.8 % 11.6-16.2 N (test code = RDW) RED CELL DISTRIBUTION WIDTH SD 42.3 fL 37.0-51.0 N (test code = RDW-SD) PLATELET COUNT (test code = 302 K/mm3 150-450 N PLT) MEAN PLATELET VOLUME (test code 9.4 fL 6.7-11.0 N = MPV) NEUTROPHIL % (test code = NT%) 72.0 % 39.0-69.0 H LYMPHOCYTE % (test code = LY%) 16.6 % 25.0-55.0 L MONOCYTE % (test code = MO%) 6.5 % 0.0-10.0 N EOSINOPHIL % (test code = EO%) 4.0 % 0.0-5.0 N BASOPHIL % (test code = BA%) 0.2 % 0.0-1.0 N NEUTROPHIL # (test code = NT#) 4.11 K/mm3 1.8-7.7 N LYMPHOCYTE # (test code = LY#) 0.95 K/mm3 1.0-5.0 L MONOCYTE # (test code = MO#) 0.37 K/mm3 0-0.8 N EOSINOPHIL # (test code = EO#) 0.23 K/mm3 0.0-0.5 N BASOPHIL # (test code = BA#) 0.01 K/mm3 0.0-0.2 N MANUAL DIFF REQUIRED (test code NO = MDIFF) CHEM [id number] 14:06:001.11[facility] HermannCHEM [id number] 14:06:0078 [facility]SrcjegaJHQKVVEUJT8904-30-55 14:06:09224Ftaruajl HermannHEMATOLOGY 2016-01-03 14:06:00 Test Item Value Reference Range Interpretation Comments PTT (test code = PTT) 24.1 s 22.9-35.8 [facility] TclswqtFMHGTKFFRO3176-37-57 06:35:004.52[facility] HermannHEMATOLOGY 2016-01-03 06:35:0013.3[facility] CedioxkPHICQHABBL1994-63-42 06:35:009.9[facility] KdmgomaIOJEHMRBBQ2350-45-65 06:35:002.6[facility] ZygyyweVQSGGMFXYB3330-36-98 06:35:00Normal (01/03/16 1:35 AM)[facility] MukemmlKGTSVDDMDI0762-65-60 06:35:00 Normal (01/03/16 1:35 AM)[facility] LiahrhlHGFLPDQZOE6149-16-49 06:35:0019.4 [facility] UjjgrtxRAOHIGIRCZ8772-41-61 06:35:0074.2[facility] HermannHEMATOLOGY 2016-01-03 06:35:000.1[facility] EwkjdkoDNGFYHMUBS8584-54-55 06:35:000.7[facility] KqixclzPEENTBGGYG9921-09-52 06:35:000.1[facility] QnehxcpNRFDXWSBRJ0948-23-44 06:35:000.6[facility] WrcoafiPMGNDVDHZN3198-76-47 06:35:000.8[facility] [place] QFYEIJQYHH9845-52-42 06:35:005.0[facility] HermannCARDIAC PJYABUG7163-75-06 06:35:0047[facility] HermannCARDIAC XYJWXUV8425-90-73 06:35:0011[facility] CHEM TOURC0821-81-10 06:35:20786Mdgomssc HermannCHEM CQBXA1101-86-20 06:35:00 13.5[facility] HermannCHEM OYAQH0267-15-92 06:35:0024[facility] HermannCHEM PANEL 2016-01-03 06:35:003.5[facility] HermannCHEM NEUKR8704-89-83 06:35:003.1[facility] HermannCHEM UGEOK9267-67-26 06:35:44752Cgykflbk HermannCHEM CJNHQ8105-75-57 06:35:59216Pyvpgutd HermannCHEM SHKDV3095-36-54 06:35:008.2[facility] HermannCHEM YFAKX3690-39-65 06:35:009[facility] HermannCHEM ZAVWT9309-60-33 06:35:006.3 [facility] HermannCHEM BEXHW6407-26-35 06:35:003.2[facility] HermannCHEM PANEL 2016-01-03 06:35:0061[facility] HermannCHEM JIGYB8019-84-91 06:35:000.5[facility] HermannCHEM ASMYM7438-82-67 06:35:0011[facility] HermannCHEM UIXPA4990-71-99 06:35:001.0[facility] HermannCHEM YCWHW6051-75-88 06:35:0022[facility] HermannCHEM EGDIU0020-21-63 06:35:000.88[facility] HermannCHEM AOWIN4794-03-64 06:35:008 [facility] HermannCHEM HGRSU0437-55-34 06:35:28882Kkotjwfe HermannCHEM PANEL 2016-01-03 06:35:001.8[facility] KsqdkvbJEMJWRTTOV7047-06-90 06:35:007.9[facility] XofnmneXMKZQIIIKM9153-92-31 06:35:05060Xjigeqwf DzskhjuRTNQFITSHB2281-48-82 06:35:0034.8[facility] ViehyhxEZAEOEENON5211-35-70 06:35:00 Test Item Value Reference Range Interpretation Comments MCH (test code = MCH) 30.9 pg 27.0-31.0 [facility] QfvubfjGURYPCDVBV2059-04-65 06:35:0088.8[facility] HermannHEMATOLOGY 2016-01-03 06:35:0040.2[facility] XjycjhjHXGHTJIEFS8988-01-65 06:35:0014.0[facility] QwryijkBINZGFTFGO0980-46-03 06:35:0012.8[facility] HermannCHEM YFLZT6812-32-57 10:18:008.1[facility] HermannCHEM CBOQC9111-75-05 10:18:0026[facility] HermannCHEM DDQHB9060-89-09 10:18:65421Gxunwlwx HermannCHEM ZUKAB5630-34-15 10:18:009 [facility] HermannCHEM XBSLK2951-15-60 10:18:004.0[facility] HermannCHEM PANEL 2015-12-19 10:18:12093Yvfyombp HermannCHEM UFCBU5576-37-74 10:18:67608Nzqkufbo HermannCHEM SGBQG9986-39-01 10:18:69174Wdcrvpew HermannCHEM IDJYF0666-98-73 10:18:000.76[facility] HermannCHEM NXFKI6750-65-86 10:18:0012.0[facility] MQBCGPTNJJ0635-52-28 10:18:00 Test Item Value Reference Range Interpretation Comments MCH (test code = MCH) 30.4 pg 27.0-31.0 [facility] PnthwqeKZJNUEVYAW7470-06-70 10:18:99326Uthcxbcp HermannHEMATOLOGY 2015-12-19 10:18:0034.3[facility] IcznmxaRACZGZPJWJ5935-61-66 10:18:008.2[facility] OveulbgWYVQCNNOBR8142-74-00 10:18:0012.4[facility] TsciytaORQPZJBMWA5035-17-48 10:18:0010.3[facility] OfhilqmFOUXPIYFKM3625-66-74 10:18:004.51[facility] TQOCOCYKHN8668-54-17 10:18:0088.7[facility] OmigzddTURFOZZTAN3880-45-25 10:18:00 13.7[facility] PrpjadaOAMRXKPVQS4377-64-84 10:18:0040.0[facility] HermannHEMATOLOGY 2015-12-19 10:18:0018.9[facility] QpzsumoWBFWSTURPL2166-95-90 10:18:0073.5[facility] FumwgxyUTVOVBRCCM4800-04-50 10:18:006.7[facility] GbkldrmVXPEHIRMEI7301-26-12 10:18:007.6[facility] PjfiuovEQAIIRDMLC4939-25-47 10:18:000.4[facility] HNXDZPUNBB1990-13-15 10:18:000.0[facility] EkjoelyQLSTXSZJFB3856-60-01 10:18:000.7 [facility] AftjgsgMAOQRGSEKT7190-86-68 10:18:000.5[facility] HermannHEMATOLOGY 2015-12-19 10:18:001.9[facility] RpbbtjzVGSADYXIPM6757-24-20 10:18:000.0[facility] HermannCHEM UMMHC4390-71-64 04:30:0090[facility] HermannCHEM EMYER9283-93-27 04:30:007.8[facility] HermannCHEM QZQYK5806-56-56 04:30:000.6[facility] HermannCHEM VSEOJ2861-25-36 04:30:0062[facility] HermannCHEM PLGXD1376-02-75 04:30:0010 [facility] HermannCHEM WOWHW3655-90-10 04:30:0013.0[facility] HermannCHEM PANEL 2015-12-13 04:30:0024[facility] HermannCHEM PCKHX7955-00-69 04:30:001.34[facility] HermannCHEM ZMOLS2928-29-72 04:30:27890Rznfmtkt HermannCHEM PRMPP4315-60-76 04:30:0015[facility] HermannCHEM FRPQX2467-87-20 04:30:0017[facility] HermannCHEM DQXOJ9042-74-19 04:30:003.7[facility] HermannCHEM MHSCT3276-59-27 04:30:0011 [facility] HermannCHEM ZHMLO3696-81-18 04:30:004.0[facility] HermannCHEM PANEL 2015-12-13 04:30:008.6[facility] HermannCHEM BWAGC6610-25-41 04:30:27939Nvoebanj HermannCHEM GFXOE1370-40-26 04:30:0099[facility] HermannCHEM RGORU2825-40-88 04:30:004.1[facility] HermannCHEM OKJBM2956-76-53 04:30:000.9[facility] [place] URSEXLAIDI2672-84-35 04:30:000.4[facility] VkytqzhPNXOLRXFHY3999-69-17 04:30:000.0 [facility] RnzdomvOGLGAAQSKD0054-29-28 04:30:001.3[facility] HermannHEMATOLOGY 2015-12-13 04:30:006.1[facility] XyzplygWFDCMNNGNH0408-93-72 04:30:000.3[facility] XvkoayrFUOCIWVJFO6529-18-67 04:30:000.4[facility] EnnbgtxMFYBAHSBSR3017-99-95 04:30:005.5[facility] SvhwnpjIYDORZRRIE3559-13-36 04:30:0077.4[facility] [place] EBGVVCRSBX9698-09-71 04:30:0016.4[facility] EatiuckPOGTMOKHXP9148-88-12 04:30:00 340[facility] DearalkORWBULRNCD4768-27-86 04:30:008.4[facility] HermannHEMATOLOGY 2015-12-13 04:30:0034.2[facility] KbwbvgfFXMZWIMHKX1115-23-72 04:30:0012.8[facility] HyuuslzRNSZXAVYXC9832-23-25 04:30:0015.3[facility] NqgcxadUVMJFTOWYC0100-60-86 04:30:0044.7[facility] ZtemzzyUWWANNUFQT1463-40-87 04:30:00 Test Item Value Reference Range Interpretation Comments MCH (test code = MCH) 30.6 pg 27.0-31.0 [facility] KuosamjSXFSTJEVVI9428-32-91 04:30:0089.4[facility] HermannHEMATOLOGY 2015-12-13 04:30:007.9[facility] BnrkzxoYXYNFQFKXR6579-41-32 04:30:004.99[facility] KpnrjkiWJVQSHQQYH9778-85-34 04:30:00<2[facility] GgbvrbyXFSLBZAGJP5408-12-85 04:30:00<0.003[facility] WtnrggrGHJVBVXBHG4973-50-27 04:30:00<3[facility] JrstfxyGUKLLSYTIB0507-44-24 04:30:004.1[facility] [place] Notes Date/Time Note Provider Source 2022-02-17 16:00:00-00:00 [id number] [facility] PATIENT NAME: HARJINDER COLUNGA ADMIT DATE: 01/01/22 ACCOUNT NO: [id number] ROOM NO: [id number] AGE: 56 REPORT TYPE: 360 - QUERY RESPONSE DOCUMENT SEX: M DATE OF : 69 ADMITTING PHYSICIAN:Ab Lucas MD ATTENDING PHYSICIAN:Ab Lucas MD Provider Query QUERY TEXT: Relationship Diagnoses General 360MD Query related questions should be directed to:[facility] Coding Query Helpline Please clarify the relationship, if any, between [Cellulitis] and [diabetes]. The patient's Clinical Indicators include: Cellulitis of left anterior lower leg-Discharge Summary 01/05/2022 (1 Uncontrolled type 2 diabetes mellitus -Discharge Summary 01/05/2022 (1) .Hyperlipidemia due to type 2 diabetes mellitus- Discharge Summary 01/05/2022 (1) Options provided: -- Yes -- No -- Other - I will add my own diagnosis -- Dismiss - Not applicable / Not valid -- Dismiss - Clinically unable to determine / Un known -- Assign to another provider QUERY RESPONSE: Yes, I am in agreement with the cause/effect rel ationship between the diagnosis documented above. Query created by: May Abreu on 01/09/2022 12:14 PM QUERY TEXT: Clarification Infectious Status POA 360MD Query related questions should be directed to:[facility] C[facility] Query Helpline Based on your clinical judgment, can you provide the known or suspected condition(s) that represent(s) the clinical indicators listed below and if the condition(s) are present on admission (POA)? The following definitions are provided based on industry literature and in collaboration with [facility] for your reference only: --Localized Infection - An infection that affect s only one organ or body part (e.g., UTI, Pneumonia) --Bacteremia - Nonspecific laboratory finding of bacteria in the blood --Sepsis - A presumed or confirmed systemic resp onse to infectious process with >2 clinical indicators such as: Temperature >38.3C or <36.0C, tachycardia, > 20 respiratory rate, WBC >12,000 or < 4,000 or > 1 0% bands --Severe Sepsis - Sepsis with additional clinica l indicators such as Organ failure with any of th e following: systolic BP < 90 or MAP < 65 or SBP decrease more 40 mm Hg from last recorded SBP considered normal for patient, Creatinine > 2.0, urine output < 0.5 ml /kg/hour for 2 hours, Bilirubin > 2 mg/dL, platelet coun t < 100,000, INR > 1.5, PTT > 60 sec, lactate > 2 m mol/L --Septic Shock - Severe Sepsis with Lactic acid > 4 mmol/L or persistent hypotension The patient's Clinical Indicators include: Cellulitis Pulse Ox 96 12/31 111 B/P 137/77 12/31 1119 B/P Mean 97 12/31 111 O2 Delivery Room air 12/31 1118 Temp 36.9 12/31 111 Pulse 91 12/31 1119 Resp 20 12/31 111 Piperacillin Sod/ 3.375 G X1ED STA 12/31 111 DC r 12/31 Lactic Acid (0.4 - 1.9 mmol/L) 2.1 *H WBC (4.5 - 12.5 K/mm3) 8.3: ed physician record 12/31/2021 Options provided: -- Sepsis, Please specify POA status (i.e., Y=Ye s, N=No, W=Unable to clinically determine) and causative organism if known. -- Severe Sepsis, Please specify POA status (i.e ., Y=Yes, N=No, W=Unable to clinically determine) and cau sative organism if known. -- Severe Sepsis with septic shock, Please speci fy POA status (i.e., Y=Yes, N=No, W=Unable to clinical ly determine) and causative organism if known. -- Localized infection, Please specify the infec tion and POA status (i.e., Y=Yes, N=No, W=Unable to clin ically determine). -- Other - I will add my own diagnosis -- Dismiss - Not applicable / Not valid -- Dismiss - Clinically unable to determine / Un known -- Assign to another provider QUERY RESPONSE: The patient has localized infection. y Query created by: DEXTER SALMERON on 01/12/2022 9:54 AM Electronically Signed by Ab Lucas MD on at 1600 PATIENT NAME: HARJINDER COLUNGA 966 2022-01-05 10:29:00-00:00 [facility] ([facility]) Discharge Summary REPORT#:[id number] REPORT STATUS: Signed DATE:01/05/22 TIME: 1029 PATIENT: HARJINDER COLUNGA UNIT #: [id number] ROOM/BED: [address] : 67 AGE: 56 SEX: M ATTEND: Zoya Lucas MD ADM AUTHOR: Armida Marmolejo NP * ALL edits or amendments must be made on the [employer]/computer document * PCP PCP PCP: PCP: Dr. Jhon Jones Discharge to: home General Information Problem List/A P: 1. Cellulitis of left anterior lower leg 2. Uncontrolled type 2 diabetes mellitus with h yperglycemia, with long-term current use of insulin 3. Well-controlled hypertension 4. Tobacco use disorder 5. Hyperlipidemia due to type 2 diabetes [facility] 6. Ambulatory dysfunction 7. Hypomagnesemia 8. Left great toe amputee 9. Hx of right BKA 10. Chronic cough 11. Blind 12. DNR (do not resuscitate) Date of admission: Observation Start Date: 12/31/21 Date of admission: 01/01/22 Discharge date: 01/05/22 Discharge diagnosis: HTN Type 2 DM Hospital course: This patient is a 56-year-old male who presented to the ER with left leg redness of 2-day duration with assoc iated warmth and tenderness. He denies being seen by his PCP or at an outside facility e.g. an urgent care clinic, thus he was not on antibiotics pr ior to arrival. He denies any current fluid leakage or any prior history of cellulitis. Review of la bs show WBC 8.3, lactic acid 2.1 then subsequently 1.3. Emergency department physician completed sepsis bundle including fluids, cultures, lactic acid, antibiotics; Doppler was negative for DVT. He is curr ently on IV Zosyn, IV vancomycin, normal saline and morphine. He is currently seen in [place] [facility]. 1. Cellulitis Left Anterior Lower Extremity- 12/20 2 Admit WBC 8.3; Lactic Acid improved from 2.3 to 1.3. On Zosyn Vancomycin. N S IVF 125cc/hr. Morphine IV prn pain. Doppler was negative for DVT. 2. Uncontrolled Type 2 DM with hyperglycemia, wi th chcf current use of insulin blindness- 12/31 Serum glucose 216. HbA1C ordered. Maintain nutritional support with ADA diet. Monitor FSBG ac hs. Home dose of Lantus Insulin 15u q hs; medium dose sliding scale insu osiris. 3. Controlled HTN- Admit BP 137/77; home dose of Losartan resumed. Monitor BP. 4. 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 Nicotine patch. 5. HLD due to T2DM- Assess lipid panel. 6. 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 7. Acute Hypomagnesemia- Mg 1.7; repleted with o ne gram Magnesium Oxide PO. Monitor magnesium level. Ppx: Pepcid, Lovenox DNR status per patient preference. H P, Obs, 997[address], > 70 mins 01/01/22 1. Cellulitis Left Anterior Lower Extremity- 12/20 2 Admit WBC 8.3; Lactic Acid improved from 2.3 to 1.3. On Zosyn Vancomycin; Pharmacy consulted for Vancomycin dosing assistance , monitor vanc trough levels, goal trough 10-15mcg/ ml. NS IVF 125cc/hr. Morphin e IV prn pain. Doppler was negative for DVT. Monitor the marked line of demarcation for resolution vs worsening of erythema. 2. Uncontrolled Type 2 DM with hyperglycemia, wi th termite helper current use of insulin, blindness- 12/31 Serum glucose 216. 01/01 RlA6W=31.1. Maintain nutritional support with ADA diet. Monitor FSBG ac hs. Home dose of Lantus In sulin 15u q hs; medium dose sliding scale insulin. Adjust insulin prn. 3. Controlled HTN- Admit BP 128/69 this morning; home dose of Losartan resumed. Monitor BP. 4. Tobacco Use Disorder with 40 pack years, use of smokeless tobacco, chronic cough- Smoked 1 PPD from age 16 until one week a go (40 pack years); currently attempting to quit smoking, now smokes 1 /2 PPD along with dipping tobacco with one can lasting 1-1.5 days. Nicotine patch. 5. HLD due to T2DM- Assess lipid panel. 6. 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 7. Acute Hypomagnesemia- 12/31 Mg 1.7; repleted w ith one gram Magnesium Oxide PO. Monitor magnesium level. Ppx: Pepcid, Lovenox DNR status per patient preference. Inpatient, 22026, > 35 mins 01/02/22 1. Cellulitis Left Anterior Lower Extremity- Cellulitis slowly improving. Pt is on tramadol as needed for pa in management. On IV vancomycin and zosyn. Pharmacy following for vancomycin dosing. 2. Uncontrolled Type 2 DM with hyperglycemia, wi th termite helper current use of insulin, blindness- 01/01 [id number]=55.1. On lantus insulin just titrated the dose up, will continue to monitor BG ac and hs 3. Controlled HTN- on Losartan , Monitor BP. 4. Tobacco Use Disorder with 40 pack years, use of smokeless tobacco, chronic cough- Continue nicotine patch 5. 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 Ppx: Pepcid, Lovenox DNR status per patient preference. 13908, > 35 mins 01/03/22 1. Cellulitis Left Anterior Lower Extremity- Cellulitis slowly improving. Pt is on tramadol as needed for pain management. pineda ed vancomycin and zosyn to Unasyn. 2. Uncontrolled Type 2 DM with hyperglycemia, wi th termite helper current use of insulin, blindness- 01/01 [id number]=81.1. On lantus i nsulin , BG 155. continue to monitor BG ac and hs 3. Controlled HTN- on Losartan , Monitor BP. 4. Tobacco Use Disorder with 40 pack years, use of smokeless tobacco, chronic cough- Continue nicotine patch 5. 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 Ppx: Pepcid, Lovenox DNR status per patient preference. 16484, > 35 mins 01/04/22 1. Cellulitis Left Anterior Lower Extremity- Jaqueline lulitis improving. Pt is on tramadol as needed for pain management. On Unasy n. 2. Uncontrolled Type 2 DM with hyperglycemia, wi th termite helper current use of insulin, blindness- 01/01 ZhW5N=12.1. On lantus i nsulin , BG 155. continue to monitor BG ac and hs 3. Controlled HTN- on Losartan , Monitor BP. 4. Tobacco Use Disorder with 40 pack years, use of smokeless tobacco, chronic cough- Continue nicotine patch 5. 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 Ppx: Pepcid, Lovenox DNR status per patient preference. 36241, > 35 mins 01/05/22 Patient got admitted with cellulitis. Received I V abx vancomycin, zosyn and Unasyn. Discharged on oral Augmentin for 7 more days. Follow up with PCP in 1 week. Consultants: None Pt. condition on discharge: improved Allergies: Allergies: No Known Allergies (Coded, 12/31/21) Med Rec PCP PCP: PCP: Dr Jhon Jones Med Rec Discharge meds: Stop taking the following medications: LOSARTAN (COZAAR) 50 MG TAB 50 MILLIGRAM ORAL DAILY. Qty = 30 INSULIN GLARGINE (LANTUS) 100 UNIT/ML VIAL 0 UNITS SUBCUTANEOUS BEDTIME. Qty = 10 INSULIN LISPRO (HumaLOG) 100 UNITS/ML VIAL 5 UNITS SUBCUTANEOUS BEFORE MEALS. Qty = 10 metFORMIN (GLUCOPHAGE) 500 MG TAB 500 MILLIGRAM ORAL TWICE DAILY. Qty = 60 Continue taking these medications: NICOTINE (HABITROL 14 MG) 14 MG/24 HOUR PATCH 14 MILLIGRAM TRANSDERMAL DAILY. Qty = 30 INSULIN LISPRO (HumaLOG) 100 UNITS/ML VIAL 5 UNITS SUBCUTANEOUS BEFORE MEALS. Qty = 5 LOSARTAN (COZAAR) 50 MG TAB 50 MILLIGRAM ORAL DAILY. Qty = 28 This prescription has been renewed INSULIN GLARGINE (LANTUS) 100 UNIT/ML VIAL 15 UNITS SUBCUTANEOUS BEDTIME. Days = 30 Qty = 1 This prescription has been renewed metFORMIN (GLUCOPHAGE) 500 MG TAB 500 MILLIGRAM ORAL TWICE DAILY. Days = 30 Qty = 60 Instructions: TAKE WITH MEALS This prescription has been renewed Start taking the following new medications: AMOXICILLIN/CLAV K (AUGMENTIN 500/125 MG) 500 MG -125 MG TAB 500 MILLIGRAM ORAL EVERY 12 HOURS. Days = 7 Qty = 14 No Refills DME - GLUCOSE LANCETS (GLUCOSE LANCETS) 1 ITEM E ACH EACH MISCELLANEOUS THREE TIMES A DAY. Qty = 100 No Refills Instructions: Glucose Lancets of Choice DME - GLUCOSE METER (GLUCOSE METER) 1 ITEM EACH EACH MISCELLANEOUS DIRECTED. Qty = 1 No Refills Instructions: Glucose meter of Choice DME - GLUCOSE STRIPS (GLUCOSE STRIPS) 1 ITEM EAC H EACH MISCELLANEOUS THREE TIMES A DAY. Qty = 100 No Refills Instructions: Glucose Strips of Choice Objective VS/I O Last Documented: Result Date Time Pulse Ox 97 01/05 08 B/P 120/73 01/05 08 B/P Mean 88.8 01/05 08 O2 Delivery Room air 01/05 08 Temp 97.7 01/05 08 Pulse 69 01/05 0804 Resp 18 01/05 0804 PATIENT WEIGHT: Weight (lb): Weight (oz): Weight (kg): 77.273 General appearance: alert, awake, oriented, no a cute distress Head/Eyes: atraumatic, normocephalic ENT: normal nose, moist mucosal membranes Neck: non-tender, no JVD Cardiovascular: regular rate rhythm, normal hear t sounds Respiratory: no distress, aerating well, symmetr ic expansion GI: soft, non-tender, no distention Extremities: no edema-all extremities Musculoskeletal: right BKA, uses wheelchair 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/MARINE 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 HELPER: alert, oriented X 3 Skin: intact Psychiatry: normal affect, normal mood Results Results: vital signs reviewed, current med profi le rev'd Discharge Instructions PCP PCP: PCP: Dr Jhon Anglin )( Discharge to: Home/Self Care Discharge Instructions Additional Discharge Routines: PCP Follow-Up )( Diet: Diabetic, Cardiac )( Activity: As Tolerated Prescriptions: e-prescribe Time spent: Time spent on patient care (minutes): 35 Follow-up Appointments PCP follow up: PCP: Derrek Ferreira MD PCP follow up timeframe: In 6 days Electronically Signed by Armida Marmolejo NP on 12/21 at 0748 Electronically Signed by Ab Lucas MD on at 1833 RPT #:[id number] END OF REPORT 2022-01-04 21:24:00-00:00 [facility] Internal Medicine Prog. Note REPORT#:[id number] REPORT STATUS: Signed DATE:01/04/22 TIME: 2123 PATIENT: HARJINDER COLUNGA UNIT #: [id number] ROOM/BED: [address] : 67 AGE: 56 SEX: M ATTEND: Zoya Lucas MD ADM AUTHOR: Armida Marmolejo NP * ALL edits or amendments must be made on the [employer] document * Subjective Chief complaint: Left Leg redness improving Review of Systems Constitutional: Denies: chills, fever. Skin: Reports: swelling, other (redness LLE). Respiratory: Reports: non productive cough. Denies: ROSE (dysp rubi on exertion), SOB, wheezing. Cardiovascular: Denies: chest pain, edema, palpitations. GI: Denies: abdominal pain, constipation, diarrhea. Heme: Denies: bleeding. Neuro: Denies: dizziness, headache. Psych: Denies: anxiety, depression. Objective General VS/I O: Vital Signs: Date Time Temp Pulse Resp B/P B/P Pulse O2 O2 F low FiO2 Mean Ox Delivery Rate 01/04 2342 97.9 72 17 132/73 92.6 96 Room air 01/04 1959 97.7 74 17 101/63 75.7 97 Room air 01/04 1538 98.8 78 18 110/68 82.2 98 Room air 01/04 1110 98.1 78 18 100/62 74.9 96 Room air 01/04 0754 98.2 68 18 120/66 84.0 96 Room air 01/04 0545 97.9 71 16 108/60 75.8 92 PATIENT WEIGHT: Weight (lb): Weight (oz): Weight (kg): 77.273 Medications: Active Meds + DC'd Last 24 Hrs Ampicillin Sodium/Sulbactam Sodium (UNASYN) 1.5 GM Q6H IV Sodium Chloride (SODIUM CHLORIDE 0.9%) 100 ML Insulin Glargine (Lantus/Semglee) 25 UNIT BEDTIM E SUBQ Enoxaparin Sodium (LOVENOX 40MG SYRINGE) 40 MG 1 700 SUBQ Vancomycin HCl (VANCOMYCIN HCL) 1,000 MG Q12HR I V (DC) Sodium Chloride (SODIUM CHLORIDE 0.9%) 250 ML Miscellaneous Information (VANCOMYCIN PHARMACY T O DOSE) 1 EACH ASDIR IV (DC) Piperacillin Sod/Tazobactam Sod (ZOSYN) 3.375 G Q8HR IV (DC) Sodium Chloride (SODIUM CHLORIDE 0.9%) 100 ML Morphine Sulfate (morphine SULFATE) 4 MG Q4H PRN PRN IV Famotidine (PEPCID TAB) 20 MG BID AC PO Losartan Potassium (COZAAR 50MG TABLET) 50 MG DA ISACC PO Nicotine (HABITROL 14MG PATCH) 14 MG DAILY TRANS DERM Acetaminophen (TYLENOL EXTRA STRENGTH) 500 MG Q6 H PRN PRN PO Benzonatate (BENZONATATE) 100 MG Q4H PRN PRN PO Docusate Sodium (COLACE 100 MG CAPSULE) 100 MG B ID PRN PRN PO Ondansetron HCl (ondansetron HCL) 4 MG Q4H PRN P RN IV Tramadol HCl (ULTRAM) 50 MG Q6H PRN PRN PO Ibuprofen (IBUPROFEN) 600 MG QID PRN PRN PO Insulin Human Lispro (HUMALOG) S/SCALE MED AC SUBQ Dextrose/Water (DEXTROSE 50%-WATER) 50 ML ASDIR PRN IV (CKD) Physical Exam General appearance: alert, awake, oriented, no a cute distress Head/Eyes: atraumatic, EOMI, normocephalic, Blin dness ENT: moist mucosal membranes, normal nose Neck: non-tender, no lymphadenopathy Cardiovascular: regular rate rhythm, no murmur Respiratory: clear to auscultation, symmetric ex pansion, no distress Abdomen: non-tender, normal bowel sounds, soft, no distention, no guarding Extremities: Extremities: moves all, no calf tenderness, no clubbing, no cyanosis, no edema Musculoskeletal: no muscle spasm, Right BKA Neuro/MARINE ELECTRICIAN HELPER: alert, oriented x 3, CNII-XII intact, normal speech Skin: dry, no rash, Erythema at left leg; line of demarcation marked at 16:00 ON 12/31. Psychiatry: normal affect, normal judgement/insi ght, normal mood Results Results: vital signs reviewed, current med profi le rev'd Treatment Prophylaxis Treatment Prophylaxis Oxygen: room air Lines: peripheral Ulcer prophylaxis: famotidine Diagnosis, Assessment Plan Problem List/A P: 1. Cellulitis of left anterior lower leg 2. Uncontrolled type 2 diabetes mellitus with h yperglycemia, with long-term current use of insulin 3. Well-controlled hypertension 4. Tobacco use disorder 5. Hyperlipidemia due to type 2 diabetes [facility] 6. Ambulatory dysfunction 7. Hypomagnesemia 8. Left great toe amputee 9. Hx of right BKA 10. Chronic cough 11. Blind 12. DNR (do not resuscitate) Consultants: None Code status: do not resuscitate Plan discussed with: patient, primary care physi magali, nurse Time spent: Time spent on patient care (minutes): 35 Free Text DxA P Notes Free text DxA P notes: This patient is a 56-year-old male who presented to the ER with left leg redness of 2-day duration with assoc iated warmth and tenderness. He denies being seen by his PCP or at an outside facility e.g. an urgent care clinic, thus he was not on antibiotics pr ior to arrival. He denies any current fluid leakage or any prior history of cellulitis. Review of la bs show WBC 8.3, lactic acid 2.1 then subsequently 1.3. Emergency department physician completed sepsis bundle including fluids, cultures, lactic acid, antibiotics; Doppler was negative for DVT. He is curr ently on IV Zosyn, IV vancomycin, normal saline and morphine. He is currently seen in [place] [facility]. 1. Cellulitis Left Anterior Lower Extremity- 12/20 2 Admit WBC 8.3; Lactic Acid improved from 2.3 to 1.3. On Zosyn Vancomycin. N S IVF 125cc/hr. Morphine IV prn pain. Doppler was negative for DVT. 2. Uncontrolled Type 2 DM with hyperglycemia, wi th chcf current use of insulin blindness- 12/31 Serum glucose 216. HbA1C ordered. Maintain nutritional support with ADA diet. Monitor FSBG ac hs. Home dose of Lantus Insulin 15u q hs; medium dose sliding scale insu osiris. 3. Controlled HTN- Admit BP 137/77; home dose of Losartan resumed. Monitor BP. 4. 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 Nicotine patch. 5. HLD due to T2DM- Assess lipid panel. 6. 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 7. Acute Hypomagnesemia- Mg 1.7; repleted with o ne gram Magnesium Oxide PO. Monitor magnesium level. Ppx: Pepcid, Lovenox DNR status per patient preference. H P, Obs, 99926, > 70 mins 01/01/22 1. Cellulitis Left Anterior Lower Extremity- 12/20 2 Admit WBC 8.3; Lactic Acid improved from 2.3 to 1.3. On Zosyn Vancomycin; [facility] consulted for Vancomycin dosing assistance , monitor vanc trough levels, goal trough 10-15mcg/ ml. NS IVF 125cc/hr. Morphin e IV prn pain. Doppler was negative for DVT. Monitor the marked line of demarcation for resolution vs worsening of erythema. 2. Uncontrolled Type 2 DM with hyperglycemia, wi th termite helper current use of insulin, blindness- 12/31 Serum glucose 216. 01/01 GnH9I=76.1. Maintain nutritional support with ADA diet. Monitor FSBG ac hs. Home dose of Lantus In sulin 15u q hs; medium dose sliding scale insulin. Adjust insulin prn. 3. Controlled HTN- Admit BP 128/69 this morning; home dose of Losartan resumed. Monitor BP. 4. Tobacco Use Disorder with 40 pack years, use of smokeless tobacco, chronic cough- Smoked 1 PPD from age 16 until one week a go (40 pack years); currently attempting to quit smoking, now smokes 1 /2 PPD along with dipping tobacco with one can lasting 1-1.5 days. Nicotine patch. 5. HLD due to T2DM- Assess lipid panel. 6. 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 7. Acute Hypomagnesemia- 12/31 Mg 1.7; repleted w ith one gram Magnesium Oxide PO. Monitor magnesium level. Ppx: Pepcid, Lovenox DNR status per patient preference. Inpatient, 92768, > 35 mins 01/02/22 1. Cellulitis Left Anterior Lower Extremity- Cellulitis slowly improving. Pt is on tramadol as needed for pa in management. On IV vancomycin and zosyn. Pharmacy following for vancomycin dosing. 2. Uncontrolled Type 2 DM with hyperglycemia, wi th chcf current use of insulin, blindness- 01/01 SxP2E=30.1. On lantus insulin just titrated the dose up, will continue to monitor BG ac and hs 3. Controlled HTN- on Losartan , Monitor BP. 4. Tobacco Use Disorder with 40 pack years, use of smokeless tobacco, chronic cough- Continue nicotine patch 5. 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 Ppx: Pepcid, Lovenox DNR status per patient preference. 98059, > 35 mins 01/03/22 1. Cellulitis Left Anterior Lower Extremity- Cellulitis slowly improving. Pt is on tramadol as needed for pain management. pineda ed vancomycin and zosyn to Unasyn. 2. Uncontrolled Type 2 DM with hyperglycemia, wi th termite helper current use of insulin, blindness- 01/01 HyA2K=10.1. On lantus i nsulin , BG 155. continue to monitor BG ac and hs 3. Controlled HTN- on Losartan , Monitor BP. 4. Tobacco Use Disorder with 40 pack years, use of smokeless tobacco, chronic cough- Continue nicotine patch 5. 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 Ppx: Pepcid, Lovenox DNR status per patient preference. 02154, > 35 mins 01/04/22 1. Cellulitis Left Anterior Lower Extremity- Jaqueline lulitis improving. Pt is on tramadol as needed for pain management. On Unasy n. 2. Uncontrolled Type 2 DM with hyperglycemia, wi th termite helper current use of insulin, blindness- 01/01 LiQ5F=65.1. On lantus i nsulin , BG 155. continue to monitor BG ac and hs 3. Controlled HTN- on Losartan , Monitor BP. 4. Tobacco Use Disorder with 40 pack years, use of smokeless tobacco, chronic cough- Continue nicotine patch 5. 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 Ppx: Pepcid, Lovenox DNR status per patient preference. 79388, > 35 mins Electronically Signed by Armida Marmolejo NP on 12/20 12/10 at 2119 Electronically Signed by Ab Lucas MD on at 1831 RPT #:[id number] END OF REPORT 2022-01-03 22:24:00-00:00 [facility] ([facility]) Internal Medicine Prog. Note REPORT#:[id number] REPORT STATUS: Signed DATE:01/03/22 TIME: 2223 PATIENT: HARJINDER COLUNGA UNIT #: [id number] ROOM/BED: [address] : 67 AGE: 56 SEX: M ATTEND: Zoya Lucas MD ADM AUTHOR: Armida Marmolejo NP * ALL edits or amendments must be made on the [employer]/computer document * Subjective Chief complaint: Left Leg redness improving Review of Systems Constitutional: Denies: chills, fever. Skin: Reports: swelling, other (redness LLE). Respiratory: Reports: non productive cough. Denies: ROSE (dysp rubi on exertion), SOB, wheezing. Cardiovascular: Denies: chest pain, edema, palpitations. GI: Denies: abdominal pain, constipation, diarrhea. Heme: Denies: bleeding. Neuro: Denies: dizziness, headache. Psych: Denies: anxiety, depression. Objective General VS/I O: Vital Signs Date Temp Pulse Resp B/P B/P Mean Pulse Ox FiO2 01/03 97.7-99.0 64-79 16-18 115-171/66-80 82.7- 107.7 95-97 Last Documented: Result Date Time Pulse Ox 96 01/04 2108 B/P 131/74 01/04 2108 B/P Mean 92.9 01/04 2108 Pulse 75 01/04 2108 Resp 16 01/04 2108 Temp 98.4 01/03 2023 O2 Delivery Room air 01/03 155 PATIENT WEIGHT: Weight (lb): Weight (oz): Weight (kg): 77.273 Medications: Active Meds + DC'd Last 24 Hrs Ampicillin Sodium/Sulbactam Sodium (UNASYN) 1.5 GM Q6H IV Sodium Chloride (SODIUM CHLORIDE 0.9%) 100 ML Insulin Glargine (Lantus/Semglee) 25 UNIT BEDTIM E SUBQ Enoxaparin Sodium (LOVENOX 40MG SYRINGE) 40 MG 1 700 SUBQ Vancomycin HCl (VANCOMYCIN HCL) 1,000 MG Q12HR I V (DC) Sodium Chloride (SODIUM CHLORIDE 0.9%) 250 ML Miscellaneous Information (VANCOMYCIN PHARMACY T O DOSE) 1 EACH ASDIR IV (DC) Piperacillin Sod/Tazobactam Sod (ZOSYN) 3.375 G Q8HR IV (DC) Sodium Chloride (SODIUM CHLORIDE 0.9%) 100 ML Morphine Sulfate (morphine SULFATE) 4 MG Q4H PRN PRN IV Famotidine (PEPCID TAB) 20 MG BID AC PO Losartan Potassium (COZAAR 50MG TABLET) 50 MG DA ISACC PO Nicotine (HABITROL 14MG PATCH) 14 MG DAILY TRANS DERM Acetaminophen (TYLENOL EXTRA STRENGTH) 500 MG Q6 H PRN PRN PO Benzonatate (BENZONATATE) 100 MG Q4H PRN PRN PO Docusate Sodium (COLACE 100 MG CAPSULE) 100 MG B ID PRN PRN PO Ondansetron HCl (ondansetron HCL) 4 MG Q4H PRN P RN IV Tramadol HCl (ULTRAM) 50 MG Q6H PRN PRN PO Ibuprofen (IBUPROFEN) 600 MG QID PRN PRN PO Insulin Human Lispro (HUMALOG) S/SCALE MED AC SUBQ Dextrose/Water (DEXTROSE 50%-WATER) 50 ML ASDIR PRN IV (CKD) Physical Exam General appearance: alert, awake, oriented, no a cute distress Head/Eyes: atraumatic, EOMI, normocephalic, Blin dness ENT: moist mucosal membranes, normal nose Neck: non-tender, no lymphadenopathy Cardiovascular: regular rate rhythm, no murmur Respiratory: clear to auscultation, symmetric ex pansion, no distress Abdomen: non-tender, normal bowel sounds, soft, no distention, no guarding Extremities: Extremities: moves all, no calf tenderness, no clubbing, no cyanosis, no edema Musculoskeletal: no muscle spasm, Right BKA Neuro/MARINE ELECTRICIAN HELPER: alert, oriented x 3, CNII-XII intact, normal speech Skin: dry, no rash, Erythema at left leg; line of demarcation marked at 16:00 ON 12/31. Psychiatry: normal affect, normal judgement/insi ght, normal mood Results Findings/Data: Laboratory Tests 01/03/22 0549: [Embedded Image Not Available] Laboratory Tests 01/03 1551 [id number] 0570 Chemistry Sodium (136 - 145 mmol/L) 135 L Potassium (3.5 - 5.1 mmol/L) 4.0 Chloride (98 - 107 mmol/L) 102.0 Carbon Dioxide (21 - 32 mmol/L) 26.0 Anion Gap (10 - 20) 11.0 BUN (7 - 18 mg/dL) 6 L Creatinine (0.7 - 1.3 mg/dL) 0.80 Glomerular Filtr Rate (>=60 mL/min) > 60 BUN/Creatinine Ratio (10 - 20) 7.6 L Glucose (74 - 106 mg/dL) 154 H POC Glucose (74 - 106 mg/dL) 155 H 130 H 195 H 142 H Calcium (8.5 - 10.1 mg/dL) 8.6 Laboratory Tests 01/03 0549 Hematology WBC (4.5 - 12.5 K/mm3) 4.1 L RBC (4.0 - 5.8 mill/mm3) 3.99 L Hgb (13.0 - 17.5 gram/dL) 11.5 L Hct (42.0 - 52.0 %) 35.3 L MCV (80 - 98 fL) 88.5 MCH (27.0 - 33.0 picogram) 28.8 MCHC (33.0 - 36.0 gram/dL) 32.6 L RDW (11.6 - 16.2 %) 13.2 RDW Std Deviation (37.0 - 51.0 fL) 43.1 Plt Count (150 - 450 K/mm3) 310 MPV (6.7 - 11.0 fL) 9.7 Neut % (Auto) (39.0 - 69.0 %) 64.8 Lymph % (Auto) (25.0 - 55.0 %) 23.2 L [place] % (Auto) (0.0 - 10.0 %) 8.6 Eos % (Auto) (0.0 - 5.0 %) 2.4 Baso % (Auto) (0.0 - 1.0 %) 0.5 Neut # (Auto) (1.8 - 7.7 K/mm3) 2.65 Lymph # (Auto) (1.0 - 5.0 K/mm3) 0.95 L [place] # (Auto) (0 - 0.8 K/mm3) 0.35 Eos # (Auto) (0.0 - 0.5 K/mm3) 0.10 Baso # (Auto) (0.0 - 0.2 K/mm3) 0.02 Add Manual Diff NO Nucleated RBC % (0 - 0 %) 0.0 Nucleated RBCs # (Man) (0.0 - 0.1 K/mm3) 0.00 Results: labs reviewed, vital signs reviewed, cu rrent med profile rev'd Treatment Prophylaxis Treatment Prophylaxis Oxygen: room air Lines: peripheral Ulcer prophylaxis: famotidine Diagnosis, Assessment Plan Problem List/A P: 1. Cellulitis of left anterior lower leg 2. Uncontrolled type 2 diabetes mellitus with h yperglycemia, with long-term current use of insulin 3. Well-controlled hypertension 4. Tobacco use disorder 5. Hyperlipidemia due to type 2 diabetes [facility] 6. Ambulatory dysfunction 7. Hypomagnesemia 8. Left great toe amputee 9. Hx of right BKA 10. Chronic cough 11. Blind 12. DNR (do not resuscitate) Consultants: None Code status: full code Plan discussed with: patient, primary care physi nurse magali Time spent: Time spent on patient care (minutes): 35 Free Text DxA P Notes Free text DxA P notes: This patient is a 56-year-old male who presented to the ER with left leg redness of 2-day duration with assoc iated warmth and tenderness. He denies being seen by his PCP or at an outside facility e.g. an urgent care clinic, thus he was not on antibiotics pr ior to arrival. He denies any current fluid leakage or any prior history of cellulitis. Review of la bs show WBC 8.3, lactic acid 2.1 then subsequently 1.3. Emergency department physician completed sepsis bundle including fluids, cultures, lactic acid, antibiotics; Doppler was negative for DVT. He is curr ently on IV Zosyn, IV vancomycin, normal saline and morphine. He is currently seen in [place] [facility]. 1. Cellulitis Left Anterior Lower Extremity- 12/20 2 Admit WBC 8.3; Lactic Acid improved from 2.3 to 1.3. On Zosyn Vancomycin. N S IVF 125cc/hr. Morphine IV prn pain. Doppler was negative for DVT. 2. Uncontrolled Type 2 DM with hyperglycemia, wi th chcf current use of insulin blindness- 12/31 Serum glucose 216. HbA1C ordered. Maintain nutritional support with ADA diet. Monitor FSBG ac hs. Home dose of Lantus Insulin 15u q hs; medium dose sliding scale insu osiris. 3. Controlled HTN- Admit BP 137/77; home dose of Losartan resumed. Monitor BP. 4. 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 Nicotine patch. 5. HLD due to T2DM- Assess lipid panel. 6. 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 7. Acute Hypomagnesemia- Mg 1.7; repleted with o ne gram Magnesium Oxide PO. Monitor magnesium level. Ppx: Pepcid, Lovenox DNR status per patient preference. [place], Obs, 27614, > 70 mins 01/01/22 1. Cellulitis Left Anterior Lower Extremity- 12/20 2 Admit WBC 8.3; Lactic Acid improved from 2.3 to 1.3. On Zosyn Vancomycin; Roz qureshi consulted for Vancomycin dosing assistance , monitor vanc trough levels, goal trough 10-15mcg/ ml. NS IVF 125cc/hr. Morphin e IV prn pain. Doppler was negative for DVT. Monitor the marked line of demarcation for resolution vs worsening of erythema. 2. Uncontrolled Type 2 DM with hyperglycemia, wi th termite helper current use of insulin, blindness- 12/31 Serum glucose 216. 01/01 EoR0Y=43.1. Maintain nutritional support with ADA diet. Monitor FSBG ac hs. Home dose of Lantus In sulin 15u q hs; medium dose sliding scale insulin. Adjust insulin prn. 3. Controlled HTN- Admit BP 128/69 this morning; home dose of Losartan resumed. Monitor BP. 4. Tobacco Use Disorder with 40 pack years, use of smokeless tobacco, chronic cough- Smoked 1 PPD from age 16 until one week a go (40 pack years); currently attempting to quit smoking, now smokes 1 /2 PPD along with dipping tobacco with one can lasting 1-1.5 days. Nicotine patch. 5. HLD due to T2DM- Assess lipid panel. 6. 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 7. Acute Hypomagnesemia- 12/31 Mg 1.7; repleted w ith one gram Magnesium Oxide PO. Monitor magnesium level. Ppx: Pepcid, Lovenox DNR status per patient preference. Inpatient, 050[address], > 35 mins 01/02/22 1. Cellulitis Left Anterior Lower Extremity- Cellulitis slowly improving. Pt is on tramadol as needed for pa in management. On IV vancomycin and zosyn. Pharmacy following for vancomycin dosing. 2. Uncontrolled Type 2 DM with hyperglycemia, wi th chcf current use of insulin, blindness- 01/01 [id number]=25.1. On lantus insulin just titrated the dose up, will continue to monitor BG ac and hs 3. Controlled HTN- on Losartan , Monitor BP. 4. Tobacco Use Disorder with 40 pack years, use of smokeless tobacco, chronic cough- Continue nicotine patch 5. 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 Ppx: Pepcid, Lovenox DNR status per patient preference. 63319, > 35 mins 01/03/22 1. Cellulitis Left Anterior Lower Extremity- Cellulitis slowly improving. Pt is on tramadol as needed for pain management. pineda ed vancomycin and zosyn to Unasyn. 2. Uncontrolled Type 2 DM with hyperglycemia, wi th termite helper current use of insulin, blindness- 01/01 [id number]=62.1. On lantus i nsulin , BG 155. continue to monitor BG ac and hs 3. Controlled HTN- on Losartan , Monitor BP. 4. Tobacco Use Disorder with 40 pack years, use of smokeless tobacco, chronic cough- Continue nicotine patch 5. 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 Ppx: Pepcid, Lovenox DNR status per patient preference. 16315, > 35 mins Electronically Signed by Armida Marmolejo NP on 12/20 09/09 at 2232 Electronically Signed by Ab Lucas MD on at 1423 RPT #:[id number] END OF REPORT 2022-01-02 17:16:00-00:00 [facility] Internal Medicine Prog. Note REPORT#:[id number] REPORT STATUS: Signed DATE:01/02/22 TIME: 1716 PATIENT: HARJINDER COLUNGA UNIT #: [id number] ROOM/BED: [address] : 69 AGE: 56 SEX: M ATTEND: Zoya Lucas MD ADM AUTHOR: Armida Marmolejo NP * ALL edits or amendments must be made on the [employer]/computer document * Subjective Chief complaint: Left Leg redness HPI: Patient is seen and examined in his room with no acute respiratory distress. No fever or chills reported. Hi s left lower leg redness is improving slowly, he is currently on vancomycin and Zosyn. Review of Systems Constitutional: Denies: chills, fever. Skin: Reports: swelling, other (redness LLE). Respiratory: Reports: non productive cough. Denies: ROSE (dysp rubi on exertion), SOB, wheezing. Cardiovascular: Denies: chest pain, edema, palpitations. GI: Denies: abdominal pain, constipation, diarrhea. Heme: Denies: bleeding. Neuro: Denies: dizziness, headache. Psych: Denies: anxiety, depression. Objective General VS/I O: Vital Signs Date Temp Pulse Resp B/P B/P Mean Pulse Ox FiO 2 01/01-01/02 97.7-98.2 69-80 18 122-157/68-80 86 .0-105.9 95-99 Last Documented: Result Date Time Pulse Ox 98 01/02 1546 B/P 157/80 01/02 1546 B/P Mean 105.9 01/02 1546 O2 Delivery Room air 01/02 1546 Temp 97.7 01/02 1546 Pulse 80 01/02 1546 Resp 18 01/02 1546 PATIENT WEIGHT: Weight (lb): Weight (oz): Weight (kg): 77.273 Medications: Active Meds + DC'd Last 24 Hrs Insulin Glargine (Lantus/Semglee) 25 UNIT BEDTIM E SUBQ Enoxaparin Sodium (LOVENOX 40MG SYRINGE) 40 MG 1 700 SUBQ Insulin Glargine (Lantus/Semglee) 15 UNIT BEDTIM E SUBQ (DC) Vancomycin HCl (VANCOMYCIN HCL) 1,000 MG Q12HR I V Sodium Chloride (SODIUM CHLORIDE 0.9%) 250 ML Miscellaneous Information (VANCOMYCIN PHARMACY T O DOSE) 1 EACH ASDIR IV (CKD) Piperacillin Sod/Tazobactam Sod (ZOSYN) 3.375 G Q8HR IV Sodium Chloride (SODIUM CHLORIDE 0.9%) 100 ML Morphine Sulfate (morphine SULFATE) 4 MG Q4H PRN PRN IV Sodium Chloride (SODIUM CHLORIDE 0.9%) 1,000 ML .Q8H IV (DCr) Famotidine (PEPCID TAB) 20 MG BID AC PO Losartan Potassium (COZAAR 50MG TABLET) 50 MG DA ISACC PO Nicotine (HABITROL 14MG PATCH) 14 MG DAILY TRANS DERM Acetaminophen (TYLENOL EXTRA STRENGTH) 500 MG Q6 H PRN PRN PO Benzonatate (BENZONATATE) 100 MG Q4H PRN PRN PO Docusate Sodium (COLACE 100 MG CAPSULE) 100 MG B ID PRN PRN PO Ondansetron HCl (ondansetron HCL) 4 MG Q4H PRN P RN IV Tramadol HCl (ULTRAM) 50 MG Q6H PRN PRN PO Ibuprofen (IBUPROFEN) 600 MG QID PRN PRN PO Insulin Human Lispro (HUMALOG) S/SCALE MED AC SUBQ Dextrose/Water (DEXTROSE 50%-WATER) 50 ML ASDIR PRN IV (CKD) Physical Exam General appearance: alert, awake, oriented, no a cute distress Head/Eyes: atraumatic, EOMI, normocephalic, Blin dness ENT: moist mucosal membranes, normal nose Neck: non-tender, no lymphadenopathy Cardiovascular: regular rate rhythm, no murmur Respiratory: clear to auscultation, symmetric ex pansion, no distress Abdomen: non-tender, normal bowel sounds, soft, no distention, no guarding Extremities: Extremities: moves all, no calf tenderness, no clubbing, no cyanosis, no edema Musculoskeletal: no muscle spasm, Right BKA Neuro/MARINE ELECTRICIAN HELPER: alert, oriented x 3, CNII-XII intact, normal speech Skin: dry, no rash, Erythema at left leg; line of demarcation marked at 16:00 ON 12/31. Psychiatry: normal affect, normal judgement/insi ght, normal mood Results Findings/Data: Laboratory Tests 01/02/22 0126: [Embedded Image Not Available] Laboratory Tests 01/02 01/02 01/02 01/02 01/01 1543 1040 0756 6 2013 Chemistry Sodium (136 - 145 mmol/L) 137 Potassium (3.5 - 5.1 mmol/L) 4.1 Chloride (98 - 107 mmol/L) 109.0 H Carbon Dioxide (21 - 32 mmol/L) 25.0 Anion Gap (10 - 20) 7.1 L BUN (7 - 18 mg/dL) 8 Creatinine (0.7 - 1.3 mg/dL) 0.70 Glomerular Filtr Rate (>=60 mL/min) > 60 BUN/Creatinine Ratio (10 - 20) 11.6 Glucose (74 - 106 mg/dL) 155 H POC Glucose (74 - 106 mg/dL) 191 H 362 H 203 H 185 H Calcium (8.5 - 10.1 mg/dL) 8.2 L Laboratory Tests 01/02 126 Hematology WBC (4.5 - 12.5 K/mm3) 4.4 L RBC (4.0 - 5.8 mill/mm3) 3.84 L Hgb (13.0 - 17.5 gram/dL) 10.9 L Hct (42.0 - 52.0 %) 33.7 L MCV (80 - 98 fL) 87.8 MCH (27.0 - 33.0 picogram) 28.4 MCHC (33.0 - 36.0 gram/dL) 32.3 L RDW (11.6 - 16.2 %) 13.7 RDW Std Deviation (37.0 - 51.0 fL) 43.4 Plt Count (150 - 450 K/mm3) 299 MPV (6.7 - 11.0 fL) 9.8 Neut % (Auto) (39.0 - 69.0 %) 62.9 Lymph % (Auto) (25.0 - 55.0 %) 26.7 [place] % (Auto) (0.0 - 10.0 %) 6.8 Eos % (Auto) (0.0 - 5.0 %) 2.7 Baso % (Auto) (0.0 - 1.0 %) 0.7 Neut # (Auto) (1.8 - 7.7 K/mm3) 2.75 Lymph # (Auto) (1.0 - 5.0 K/mm3) 1.17 [place] # (Auto) (0 - 0.8 K/mm3) 0.30 Eos # (Auto) (0.0 - 0.5 K/mm3) 0.12 Baso # (Auto) (0.0 - 0.2 K/mm3) 0.03 Nucleated RBC % (0 - 0 %) 0.0 Nucleated RBCs # (Man) (0.0 - 0.1 K/mm3) 0.00 Laboratory Tests 01/01 2038 Toxicology Vancomycin Trough (10 - 20 ug/mL) 10.5 Results: labs reviewed, vital signs reviewed, cu rrent med profile rev'd Treatment Prophylaxis Treatment Prophylaxis Oxygen: room air Lines: peripheral Ulcer prophylaxis: famotidine Diagnosis, Assessment Plan Problem List/A P: 1. Cellulitis of left anterior lower leg 2. Uncontrolled type 2 diabetes mellitus with h yperglycemia, with long-term current use of insulin 3. Well-controlled hypertension 4. Tobacco use disorder 5. Hyperlipidemia due to type 2 diabetes [facility] 6. Ambulatory dysfunction 7. Hypomagnesemia 8. Left great toe amputee 9. Hx of right BKA 10. Chronic cough 11. Blind 12. DNR (do not resuscitate) Consultants: None Code status: do not resuscitate Plan discussed with: patient, primary care physi nurse magali Time spent: Time spent on patient care (minutes): 35 Free Text DxA P Notes Free text DxA P notes: This patient is a 56-year-old male who presented to the ER with left leg redness of 2-day duration with assoc iated warmth and tenderness. He denies being seen by his PCP or at an outside facility e.g. an urgent care clinic, thus he was not on antibiotics pr ior to arrival. He denies any current fluid leakage or any prior history of cellulitis. Review of la bs show WBC 8.3, lactic acid 2.1 then subsequently 1.3. Emergency department physician completed sepsis bundle including fluids, cultures, lactic acid, antibiotics; Doppler was negative for DVT. He is curr ently on IV Zosyn, IV vancomycin, normal saline and morphine. He is currently seen in [place]. 1. Cellulitis Left Anterior Lower Extremity- 12/20 2 Admit WBC 8.3; Lactic Acid improved from 2.3 to 1.3. On Zosyn Vancomycin. N S IVF 125cc/hr. Morphine IV prn pain. Doppler was negative for DVT. 2. Uncontrolled Type 2 DM with hyperglycemia, wi th chcf current use of insulin blindness- 12/31 Serum glucose 216. HbA1C ordered. Maintain nutritional support with ADA diet. Monitor FSBG ac hs. Home dose of Lantus Insulin 15u q hs; medium dose sliding scale insu osiris. 3. Controlled HTN- Admit BP 137/77; home dose of Losartan resumed. Monitor BP. 4. 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 Nicotine patch. 5. HLD due to T2DM- Assess lipid panel. 6. 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 7. Acute Hypomagnesemia- Mg 1.7; repleted with o ne gram Magnesium Oxide PO. Monitor magnesium level. Ppx: Pepcid, Lovenox DNR status per patient preference. H P, Obs, 05709, > 70 mins 01/01/22 1. Cellulitis Left Anterior Lower Extremity- 12/20 2 Admit WBC 8.3; Lactic Acid improved from 2.3 to 1.3. On Zosyn Vancomycin; Roz qureshi consulted for Vancomycin dosing assistance , monitor vanc trough levels, goal trough 10-15mcg/ ml. NS IVF 125cc/hr. Morphin e IV prn pain. Doppler was negative for DVT. Monitor the marked line of demarcation for resolution vs worsening of erythema. 2. Uncontrolled Type 2 DM with hyperglycemia, wi th termite helper current use of insulin, blindness- 12/31 Serum glucose 216. 01/01 EuW0R=86.1. Maintain nutritional support with ADA diet. Monitor FSBG ac hs. Home dose of Lantus In sulin 15u q hs; medium dose sliding scale insulin. Adjust insulin prn. 3. Controlled HTN- Admit BP 128/69 this morning; home dose of Losartan resumed. Monitor BP. 4. Tobacco Use Disorder with 40 pack years, use of smokeless tobacco, chronic cough- Smoked 1 PPD from age 16 until one week a go (40 pack years); currently attempting to quit smoking, now smokes 1 /2 PPD along with dipping tobacco with one can lasting 1-1.5 days. Nicotine patch. 5. HLD due to T2DM- Assess lipid panel. 6. 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 7. Acute Hypomagnesemia- 12/31 Mg 1.7; repleted w ith one gram Magnesium Oxide PO. Monitor magnesium level. Ppx: Pepcid, Lovenox DNR status per patient preference. Inpatient, 65790, > 35 mins 01/02/22 1. Cellulitis Left Anterior Lower Extremity- Cellulitis slowly improving. Pt is on tramadol as needed for pa in management. On IV vancomycin and zosyn. Pharmacy following for vancomycin dosing. 2. Uncontrolled Type 2 DM with hyperglycemia, wi th termite helper current use of insulin, blindness- 01/01 HiY6I=16.1. On lantus insulin just titrated the dose up, will continue to monitor BG ac and hs 3. Controlled HTN- on Losartan , Monitor BP. 4. Tobacco Use Disorder with 40 pack years, use of smokeless tobacco, chronic cough- Continue nicotine patch 5. 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 Ppx: Pepcid, Lovenox DNR status per patient preference. 02725, > 35 mins Electronically Signed by Armida Marmolejo NP on 12/20 08/10 at 1728 Electronically Signed by Ab Lucas MD on at 6218 RPT #:[id number] END OF REPORT 2022-01-02 07:17:00-00:00 [facility] ([facility]) Pharmacy Prog.Note-Vancomycin REPORT#:[id number] REPORT STATUS: Signed DATE:01/02/22 TIME: 716 PATIENT: HARJINDER COLUNGA UNIT #: [id number] ROOM/BED: [place] [address] : 69 AGE: 56 SEX: M ATTEND: Zoya Lucas MD ADM AUTHOR: Thong Matt RPh * ALL edits or amendments must be made on the [employer]/computer document * Vancomycin Vancomycin Medication Therapy Goal: trough 10-15 mcg/mL Indication for treatment: SSTI Current therapy: vancomycin 1000 mg IV q12h Weight: Actual weight (kg): 77.3 VS and I/O: Vital Signs Date Temp Pulse Resp B/P B/P Mean Pulse Ox FiO2 12/31-01/02 97.5-98.4 72-91 15-20 102-165/62-78 75.1-100.6 91-99 72 hours ending at 0700 01/02 0700 01/01 1900 01/01 0712/31 1900 12/30 0700 1900 Intake Total Output Total Balance Patient 77.273 kg Weight Weight Stated/Rep orted Measuremen t Method 72 Hour I O Total 01/02 0701/01 0712/31 0700 Intake Total Output Total Balance Labs: Laboratory Tests: 01/01 2038 Toxicology Vancomycin Trough (10 - 20 ug/mL) 10.5 Laboratory Test : 01/02 0126 Chemistry BUN (7 - 18 mg/dL) 8 Creatinine (0.7 - 1.3 mg/dL) 0.70 Hematology WBC (4.5 - 12.5 K/mm3) 4.4 L Microbiology: 12/31 1217 BLOOD: Blood Culture - RES 12/31 1129 BLOOD: Blood Culture - RES Treatment plan: consult, cont current regimen/do se Regimen: Pharmacy consulted to dose vancomycin empiricall y to goal trough 10-15 mcg/ml for SSTI. Pt has been on vancomycin at 1000 mg IV q12h. Tr ough resulted at 10.5 mcg/ml. Continue current regimen. Pharmacy will continue to follow. at 0719 RPT #:[id number] END OF REPORT 2022-01-01 22:53:00-00:00 [facility] ([facility] Internal Medicine Prog. Note REPORT#:[id number] REPORT STATUS: Signed DATE:01/01/22 TIME: 2252 PATIENT: HARJINDER COLUNGA UNIT #: [id number] ROOM/BED: [facility] : 69 AGE: 56 SEX: M ATTEND: Zoya Lucas MD ADM AUTHOR: Chris Trotter POOL TABLE OPERATOR * ALL edits or amendments must be made on the [employer]/computer document * Subjective Chief complaint: Left Leg Redness Comments: Time of encounter 18:21 Free Text Subj Notes Free Text Subj Notes: "I had concerns that I was going to lose my leg". Reports redness and swelling of left leg. Reports chronic cough with history of smoking, eating fair. Last BM today. Review of Systems Constitutional: Denies: chills, fever. Skin: Reports: swelling, other (redness LLE). Respiratory: Reports: non productive cough. Denies: ROSE (dysp rubi on exertion), SOB, wheezing. All systems rev neg: except as marked Objective General VS/I O: Vital Signs Date Temp Pulse Resp B/P B/P Mean Pulse Ox FiO2 12/31-01/01 36.4-36.8 72-79 15-18 102-165/62-73 75.1-100.6 91-99 Last Documented: Result Date Time Pulse Ox 95 01/01 2015 B/P 134/71 01/01 2015 B/P Mean 91.7 01/01 2015 Temp 36.8 01/01 2015 Pulse 72 01/01 2015 Resp 18 01/01 2015 O2 Delivery Room air 01/01 034 24 hour I O ending at 0700: 01/01 0700 12/31 1900 Intake Total Output Total Balance Patient 77.273 kg Weight Weight Stated/Reported Measurement Method PATIENT WEIGHT: Weight (lb): Weight (oz): Weight (kg): 77.273 Medications: Active Meds + DC'd Last 24 Hrs Enoxaparin Sodium (LOVENOX 40MG SYRINGE) 40 MG 1 700 SUBQ Insulin Glargine (Lantus/Semglee) 15 UNIT BEDTIM E SUBQ Vancomycin HCl (VANCOMYCIN HCL) 1,000 MG Q12HR I V Sodium Chloride (SODIUM CHLORIDE 0.9%) 250 ML Miscellaneous Information (VANCOMYCIN PHARMACY T O DOSE) 1 EACH ASDIR IV (CKD) Piperacillin Sod/Tazobactam Sod (ZOSYN) 3.375 G Q8HR IV Sodium Chloride (SODIUM CHLORIDE 0.9%) 100 ML Morphine Sulfate (morphine SULFATE) 4 MG Q4H PRN PRN IV Sodium Chloride (SODIUM CHLORIDE 0.9%) 1,000 ML .Q8H IV Famotidine (PEPCID TAB) 20 MG BID AC PO Losartan Potassium (COZAAR 50MG TABLET) 50 MG DA ISACC PO Nicotine (HABITROL 14MG PATCH) 14 MG DAILY TRANS DERM Acetaminophen (TYLENOL EXTRA STRENGTH) 500 MG Q6 H PRN PRN PO Benzonatate (BENZONATATE) 100 MG Q4H PRN PRN PO Docusate Sodium (COLACE 100 MG CAPSULE) 100 MG B ID PRN PRN PO Ondansetron HCl (ondansetron HCL) 4 MG Q4H PRN P RN IV Tramadol HCl (ULTRAM) 50 MG Q6H PRN PRN PO Ibuprofen (IBUPROFEN) 600 MG QID PRN PRN PO Insulin Human Lispro (HUMALOG) S/SCALE MED AC SUBQ Dextrose/Water (DEXTROSE 50%-WATER) 50 ML ASDIR PRN IV (CKD) Morphine Sulfate (morphine SULFATE) 4 MG Q4H PRN PRN IV (DC) Sodium Chloride (SODIUM CHLORIDE 0.9%) 1,000 ML .Q8H IV (DC) Nutrition assessment: The data set between the solid lines has been im ported from the dietitian's assessment. Any exceptions have been noted under Provider comments. BMI Calculated: 25.2 Nutrition related diagnosis: Nutrition diagnosis details: Nutrition problem: Nutrition etiology: Nutrition signs and symptoms: Nutrition prescription: Dietitian name: Assessment completed: Provider comments on imported dietitian assessme nt: Physical Exam General appearance: alert, awake, oriented, no a cute distress, pleasant, conversational, mental status normal, no respira tory distress Head/Eyes: atraumatic, EOMI, normocephalic, Blin dness ENT: moist mucosal membranes, normal nose Neck: non-tender, no lymphadenopathy Cardiovascular: regular rate rhythm, no murmur Respiratory: clear to auscultation, symmetric ex pansion, no distress Abdomen: non-tender, normal bowel sounds, soft, no distention, no guarding Extremities: Extremities: moves all, no calf tenderness, no clubbing, no cyanosis, no edema Musculoskeletal: no muscle spasm, Right BKA Neuro/MARINE ELECTRICIAN HELPER: alert, oriented x 3, CNII-XII intact, normal speech Skin: dry, no rash, Erythema at left leg; line of demarcation marked at 16:00 ON 12/31. Psychiatry: normal affect, normal judgement/insi ght, normal mood Results Findings/Data: Laboratory Tests 01/01 1647 1259 1128 0719 Chemistry POC Glucose (74 - 106 mg/dL) 185 H 280 H 226 H 246 H 227 H 01/01 01/01 0114 0114 Chemistry Hemoglobin A1c (% HbA1) 13.1 Estim Average Glucose (MG/DL) 329 Triglycerides (20 - 150 mg/dL) 97 Cholesterol (0 - 200 mg/dL) 103 LDL Cholesterol Measurd (100 - 129 mg/dL) 71 L HDL Cholesterol (40 - 60 mg/dL) 27 L Cholesterol/HDL Ratio (0 - 4.9 RATIO) 3.0 Laboratory Tests 01/01 2038 Toxicology Vancomycin Trough (10 - 20 ug/mL) 10.5 Radiology data: Recent Impressions: RADIOLOGY - XR KNEE 3 V LT 12/31 1226 Report Impression - Status: SIGNED Entered: 12/31/2021 1240 IMPRESSION: Mild degenerative changes of the left knee. Othe rwise no radiographically evident bony abnormalities are seen in the scanned left lower extremity. The subcutaneous soft tissues appear edematous. Correlate with physical exam. Location: [facility] Impression By: [email or web address] - Magan Rae MD RADIOLOGY - XR TIBIA/FIBULA 2 V LT 12/31 1226 Report Impression - Status: SIGNED Entered: 12/31/2021 1240 IMPRESSION: Mild degenerative changes of the left knee. Othe rwise no radiographically evident bony abnormalities are seen in the scanned left lower extremity. The subcutaneous soft tissues appear edematous. Correlate with physical exam. Location: [facility] Impression By: [email or web address] - Magan Rae MD Results: labs reviewed, vital signs reviewed, cu rrent med profile rev'd Treatment Prophylaxis Treatment Prophylaxis Oxygen: room air Lines: peripheral CVC/PICC documentation: The data below has been imported from nursing do cumentation. Any exceptions have been noted below under Provider comments. CVC/PICC insertion date/time: N/A Provider comments on imported nursing data: [] Diagnosis, Assessment Plan Problem List/A P: 1. Cellulitis of left anterior lower leg 2. Uncontrolled type 2 diabetes mellitus with h yperglycemia, with long-term current use of insulin 3. Well-controlled hypertension 4. Tobacco use disorder 5. Hyperlipidemia due to type 2 diabetes [facility] 6. Ambulatory dysfunction 7. Hypomagnesemia 8. Left great toe amputee 9. Hx of right BKA 10. Chronic cough 11. Blind 12. DNR (do not resuscitate) Orders: My Order - Last 24 Hours Procedure Date/time Status Medication Management Message 01/02 1106 Comple te Change Patient Status 01/01 1655 Active Consultants: None Code status: do not resuscitate Plan discussed with: patient, admitting physicia n, collaborating MD, nurse, interdisc care team (MDR) Free Text DxA P Notes Free text DxA P notes: This patient is a 56-year-old male who presented to the ER with left leg redness of 2-day duration with assoc iated warmth and tenderness. He denies being seen by his PCP or at an outside facility e.g. an urgent care clinic, thus he was not on antibiotics pr ior to arrival. He denies any current fluid leakage or any prior history of cellulitis. Review of la bs show WBC 8.3, lactic acid 2.1 then subsequently 1.3. Emergency department physician completed sepsis bundle including fluids, cultures, lactic acid, antibiotics; Doppler was negative for DVT. He is curr ently on IV Zosyn, IV vancomycin, normal saline and morphine. He is currently seen in [place]. 1. Cellulitis Left Anterior Lower Extremity- 12/20 2 Admit WBC 8.3; Lactic Acid improved from 2.3 to 1.3. On Zosyn Vancomycin. N S IVF 125cc/hr. Morphine IV prn pain. Doppler was negative for DVT. 2. Uncontrolled Type 2 DM with hyperglycemia, wi th chcf current use of insulin blindness- 12/31 Serum glucose 216. HbA1C ordered. Maintain nutritional support with ADA diet. Monitor FSBG ac hs. Home dose of Lantus Insulin 15u q hs; medium dose sliding scale insu osiris. 3. Controlled HTN- Admit BP 137/77; home dose of Losartan resumed. Monitor BP. 4. 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 Nicotine patch. 5. HLD due to T2DM- Assess lipid panel. 6. 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 7. Acute Hypomagnesemia- Mg 1.7; repleted with o ne gram Magnesium Oxide PO. Monitor magnesium level. Ppx: Pepcid, Lovenox DNR status per patient preference. H P, Obs, [address], > 70 mins 01/01/22 1. Cellulitis Left Anterior Lower Extremity- 12/20 2 Admit WBC 8.3; Lactic Acid improved from 2.3 to 1.3. On Zosyn Vancomycin; Roz qureshi consulted for Vancomycin dosing assistance , monitor vanc trough levels, goal trough 10-15mcg/ ml. NS IVF 125cc/hr. Morphin e IV prn pain. Doppler was negative for DVT. Monitor the marked line of demarcation for resolution vs worsening of erythema. 2. Uncontrolled Type 2 DM with hyperglycemia, wi th chcf current use of insulin, blindness- 12/31 Serum glucose 216. 9/13 AxZ6D=20.1. Maintain nutritional support with ADA diet. Monitor FSBG ac hs. Home dose of Lantus In sulin 15u q hs; medium dose sliding scale insulin. Adjust insulin prn. 3. Controlled HTN- Admit BP 128/69 this morning; home dose of Losartan resumed. Monitor BP. 4. Tobacco Use Disorder with 40 pack years, use of smokeless tobacco, chronic cough- Smoked 1 PPD from age 16 until one week a go (40 pack years); currently attempting to quit smoking, now smokes 1 /2 PPD along with dipping tobacco with one can lasting 1-1.5 days. Nicotine patch. 5. HLD due to T2DM- Assess lipid panel. 6. 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 7. Acute Hypomagnesemia- 12/31 Mg 1.7; repleted w ith one gram Magnesium Oxide PO. Monitor magnesium level. Ppx: Pepcid, Lovenox DNR status per patient preference. Inpatient, 82735, > 35 mins Attestations Attestation needed: supervising physician at 1310 Electronically Signed by Ab Lucas MD on at 1422 RPT #:[id number] END OF REPORT 2021-12-31 17:43:00-00:00 [id number] [facility] PATIENT NAME: HARJINDER COLUNGA ADMIT DATE: 2 ACCOUNT NO: [id number] ROOM NO: [facility] AGE: 56 REPORT TYPE: eNVL VENOUS ULTRASOUND SEX: M DATE OF : [birth year] ADMITTING PHYSICIAN:Ab Lucas MD ATTENDING PHYSICIAN:Ab Lucas MD *[facility]* [address], [place] [address] Limited Lower Extremity Venous Duplex Evaluation Patient: Harjinder Colunga Study Date: 12/31/2021 BP: Location: [facility] URN: [id number] : 1965 Age: 56 Height: / Gender: M Weight: / BMI/BSA: / *Ordering Physician: * Jerry Roa *Interpreting Physician: * Baudilio Doyle MD *Full Roll Inspector: * Cassidy Mcneal Indications: Pain. Study data: Limited lower extremity venous duple x evaluation. Left evaluation with grayscale 2D imaging, color Dopp ler imaging, and spectral Doppler analysis. Location: Emergency [facility]. Patient status: Inpatient. Patient room number: RM-C. Pr ocedure: A vascular evaluation was performed. The study was technica lly limited due to patient positioning, limited access to patient, and edema. Study status: GELA. Venous flow and imaging: + + + *Location *Properties * + + + *L CFV *Phasic; spontaneous; normal augmentation ; compressible* + + + *L GSV *Phasic; spontaneous; normal augmentation ; compressible* + + + *L DFV *Phasic; spontaneous; normal augmentation ; compressible* + + + PATIENT NAME: HARJINDER COLUNGA 966 *L FV *Phasic; spontaneous; normal augmentation; compressible* + + + *L popliteal*Phasic; spontaneous; normal augment ation; compressible* + + + *L PTV *Phasic; spontaneous; normal augmentation ; compressible* + + + *R CFV *Phasic; spontaneous; normal augmentation ; compressible* + + + *R GSV *Phasic; spontaneous; normal augmentation ; compressible* + + + Conclusions 1. There is no evidence of acute deep or superfi cial venous thrombosis noted in the left lower extremity. 2. The right common femoral and great saphenous vein fully compress and demonstrate normal venous flow. Prepared and electronically signed by Baudilio Doyle MD 12/31/2021 17:42 Electronically Signed by Baudilio Doyle MD on 0 12/31/21 at 1743 PATIENT NAME: HARJINDER COLUNGA 966 2021-12-31 15:08:00-00:00 [facility] ([facility]) History Physical - Adult REPORT#:[id number] REPORT STATUS: Signed DATE:12/31/21 TIME: 1508 PATIENT: HARJINDER COLUNGA UNIT #: [id number] ROOM/BED: [facility]-A : [birth year] AGE: 56 SEX: M ATTEND: Zoya Lucas MD ADM AUTHOR: Chris Trotter POOL TABLE OPERATOR * ALL edits or amendments must be made on the el ectronic/computer document * History of Present Illness HPI Chief complaint: Left Leg Redness PCP: PCP: Derrek Ferreira HPI: This patient is a 56-year-old male who presented to the ER with left leg redness of 2-day duration with assoc iated warmth and tenderness. He denies being seen by his PCP or at an outside facility e.g. an urgent care clinic, thus he was not on antibiotics pr ior to arrival. He denies any current fluid leakage or any prior history of cellulitis. Review of la bs show WBC 8.3, lactic acid 2.1 then subsequently 1.3. Emergency department physician completed sepsis bundle including fluids, cultures, lactic acid, antibiotics; Doppler was negative for DVT. He is curr ently on IV Zosyn, IV vancomycin, normal saline and morphine. He is currently seen in [place]. Informant/historian: patient, prior records, ref erring physician History Past medical history: Reports: Diabetes mellitus, Hypertension, Dyslip idemia. Additional medical history: [place] in 2003, legally blind Past surgical history: Reports: Amputation. Additional surgical history: 08/04/20 Right BKA Left Great Toe amputations. Additional family history: Father: CAD, MIs Mother: DM, CHF Brother: DM Alcohol use: Stopped alcohol use 25 years ago; d enies h/o alcoholism. Drug use: Denies recreational drugs Smoking status: Smoking status for patients 13 years old or old er: Current every day smoker Other social history: Disabled (legally blind), Lives alone, Local resident Additional social history: Smoked 1 PPD from age 16 until one week ago (40 pack years); currently attempting to quit smoking, now smokes 1 /2 PPD along with dipping tobacco with one can lasting 1-1.5 days. Prefers DNR resuscitation order status. Medication/Allergy-Vaccine Hx Medications: Home Medications: Medication Dose/Rte/Freq Days Qty Entered Last Max Daily Dose Reviewed NICOTINE (HABITROL 14 MG) 14 MG TRANSDERM 30 Strength: 14 MG/24 HOUR DAILY 1021 PATCH CEPHALEXIN (KEFLEX) 500 MG PO Q8H 14 42 1 Strength: 500 MG CAP 1112 LOSARTAN (COZAAR) 50 MG PO DAILY 30 08/06/21 Strength: 50 MG TAB 1829 INSULIN GLARGINE 15 UNITS SUBQ 5 08/06/21 (LANTUS) BEDTIME 182 Strength: 100 UNIT/ML VIAL INSULIN LISPRO (HumaLOG) 5 UNITS SUBQ AC 5 07/20 12/10 Strength: 100 UNITS/ML VIAL 1829 metFORMIN (GLUCOPHAGE) 500 MG PO BID 60 2 Strength: 500 MG TAB 1829 CLINDAMYCIN HCL 300 MG PO Q6H 40 12/24/20 (CLEOCIN) 1637 Strength: 300 MG CAP INSULIN GLARGINE 0 UNITS SUBQ 10 09/30/21 (LANTUS) BEDTIME 191 Strength: 100 UNIT/ML VIAL INSULIN LISPRO (HumaLOG) 5 UNITS SUBQ AC 10 04/1112/31/21 Strength: 100 UNITS/ML VIAL 191 1200 LOSARTAN (COZAAR) 50 MG PO DAILY 30 09/30/21 Strength: 50 MG TAB 191 metFORMIN (GLUCOPHAGE) 500 MG PO BID 60 2 Strength: 500 MG TAB 191 AMOXICILLIN/CLAV K 875 MG PO BID 10 09/30/21 (AUGMENTIN 875/125 MG) 191 Strength: 875 MG-125 MG TAB IBUPROFEN (MOTRIN) 600 MG PO 30 09/30/21 Strength: 600 MG TAB QID PRN PRN PAIN 1916 Current Hospital Medications: Anti-Infective Agents Sig/Bita Start time Last Medication Dose Route Stop Time Status Admin Piperacillin Sod/ 3.375 G X1ED STA 12/31 1119 D Cr 12/31 Tazobactam Sod IV 12/31 1148 1132 (ZOSYN) Sodium Chloride 100 ML (SODIUM CHLORIDE 0.9%) Vancomycin HCl 1,000 MG X1ED STA 12/31 1119 DCr 12/31 (VANCOMYCIN HCL) IV 12/31 1218 1131 Sodium Chloride 250 ML (SODIUM CHLORIDE 0.9%) Central Nervous System Agents Sig/Bita Start time Last Medication Dose Route Stop Time Status Admin Acetaminophen 650 MG Q4H PRN PRN 12/31 1330 AC (TYLENOL) PO 01/01 0130 Morphine Sulfate 4 MG Q4H PRN PRN 12/31 1330 AC (morphine SULFATE) IV 01/01 0130 Morphine Sulfate 4 MG X1ED STA 12/31 1118 DC (morphine SULFATE) IV 12/31 1119 1133 Electrolytic, Caloric, And Gol Sig/Bita Start time Last Medication Dose Route Stop Time Status Admin Sodium Chloride 1,000 ML .Q8H 12/31 1330 AC (SODIUM CHLORIDE IV 01/01 0130 1404 0.9%) Sodium Chloride 1,000 ML X1ED STA 12/31 1118 DC 12/31 (SODIUM CHLORIDE IV 12/31 1217 1130 0.9%) Gastrointestinal Drugs Sig/Bita Start time Last Medication Dose Route Stop Time Status Admin Ondansetron HCl 4 MG Q6H PRN PRN 12/31 1330 AC (ondansetron HCL) IV 01/01 0130 Hormones And Synthetic Substit Sig/Bita Start time Last Medication Dose Route Stop Time Status Admin Insulin Human Lispro See Dose AC 12/31 1600 AC (HUMALOG) Insts (1) SUBQ 01/30 1559 Insulin Human Lispro 10 UNITS X1ED STA 12/31 13 27 DC 12/31 (HUMALOG) SUBQ 12/31 1328 1403 Tpn Carrier Sig/Bita Start time Last Medication Dose Route Stop Time Status Admin Dextrose/Water 50 ML ASDIR PRN 12/31 1330 CKD (DEXTROSE 50%-WATER) IV 01/30 1329 Dose Instructions: (1)Insulin Human Lispro (HUMALOG): S/SCALE MED Allergies: Coded Allergies: No Known Allergies (12/31/21) Occupation: Disabled; Right BKA legally blind. Ambulatory status: Wheelchair (Right BKA) Review of Systems Constitutional: Denies: chills, fever, malaise. Skin: Reports: other (left leg redness, warmth). Denie s: itching, rash. Allergy/Immun: Denies: allergic reaction, anaphylaxis. Eyes: Reports: visual loss/blurred (BLIND). Denies: ey e pain. ENT: Reports: hearing loss (mild). Denies: sore throa t. Respiratory: Reports: non productive cough (chronic, due to h x smoking). Denies: ROSE ( dyspnea on exertion), productive cough (sputum), SOB. Cardiovascular: Denies: chest pain, ROSE (dyspnea on exertion), p alpitations. GI: Reports: other (last BM this AM 12/31). Denies: a bdominal pain, constipation, diarrhea, dysphagia, nausea, vomiting. : Denies: dysuria, flank pain, frequency. Musculoskeletal: Extremity pain: Denies: left upper, left lower, right upper. Extremity swelling: Denies: left upper, left lower, right upper. Heme: Denies: bleeding, bruising. Endocrine: Denies: weight gain, weight loss. Neuro: Denies: change in LOC, dizziness, headache, seiz ure, vision change. Psych: Denies: anxiety, confusion. Physical Exam VS/I O Vital Signs: Date Time Temp Pulse Resp B/P B/P Pulse O2 O2 F low FiO2 Mean Ox Delivery Rate 12/31 1400 36.7 87 18 134/78 96 98 Room air 12/31 1119 36.9 91 20 137/77 97 96 Room air PATIENT WEIGHT: Weight (lb): Weight (oz): Weight (kg): 77.273 General appearance: alert, awake, oriented, conv ersational, no respiratory distress Head/Eyes: atraumatic, EOMI ENT: moist mucosal membranes, normal nose Neck: non-tender, no lymphadenopathy Cardiovascular: regular rate rhythm, no murmur Respiratory: clear to auscultation, no distress, symmetric expansion Abdomen/GI: active bowel sounds, soft, non-tende r, no guarding Extremities: moves all, no calf tenderness, no c lubbing, no evidence of DVT Musculoskeletal: no muscle spasm, Right BKA Neuro/MARINE ELECTRICIAN HELPER: alert, oriented X 3, normal speech, C VANESSA-XII grossly intact [place] Coma Score: Copyright Sir Noble Guerra Copyright Sir Becky Guerra Eye opening: (4) Spontaneous Verbal response: (5) Oriented Best motor response: (6) Obeys commands GCS Score: 15 Skin: erythema (Left leg), warm, dry, left leg e rythema noted; line of demarcation marked at 16:00 on 12/31. Psychiatry: normal judgment/insight, normal mood Results Findings/Data: Laboratory Tests: 12/31 12/31 12/31 1333 1129 1129 Chemistry Sodium (136 - 145 mmol/L) 132 L Potassium (3.5 - 5.1 mmol/L) 4.4 Chloride (98 - 107 mmol/L) 97.0 L Carbon Dioxide (21 - 32 mmol/L) 27.0 Anion Gap (10 - 20) 12.4 BUN (7 - 18 mg/dL) 11 Creatinine (0.7 - 1.3 mg/dL) 1.00 Glomerular Filtr Rate (>=60 mL/min) > 60 BUN/Creatinine Ratio (10 - 20) 10.8 Glucose (74 - 106 mg/dL) 474 H Lactic Acid (0.4 - 1.9 mmol/L) 1.3 2.1 *H Calcium (8.5 - 10.1 mg/dL) 8.8 Total Bilirubin (0.0 - 1.0 mg/dL) 0.30 Direct Bilirubin (0.0 - 0.20 mg/dL) 0.10 AST (15 - 37 IUnit/L) 10 L ALT (12 - 78 IUnit/L) 11 L Total Alk Phosphatase (45 - 117 IUnit/L) 117 Total Protein (6.4 - 8.2 gram/dL) 8.2 Albumin (3.4 - 5.0 g/dL) 3.7 Globulin (2.7 - 4.2 gram/dL) 4.5 H Albumin/Globulin Ratio (0.75 - 1.50) 0.8 Hematology WBC (4.5 - 12.5 K/mm3) 8.3 RBC (4.0 - 5.8 mill/mm3) 4.71 Hgb (13.0 - 17.5 gram/dL) 13.4 Hct (42.0 - 52.0 %) 41.5 L MCV (80 - 98 fL) 88.1 MCH (27.0 - 33.0 picogram) 28.5 MCHC (33.0 - 36.0 gram/dL) 32.3 L RDW (11.6 - 16.2 %) 13.3 RDW Std Deviation (37.0 - 51.0 fL) 42.9 Plt Count (150 - 450 K/mm3) 369 MPV (6.7 - 11.0 fL) 9.7 Neut % (Auto) (39.0 - 69.0 %) 77.9 H Lymph % (Auto) (25.0 - 55.0 %) 14.4 L [place] % (Auto) (0.0 - 10.0 %) 5.1 Eos % (Auto) (0.0 - 5.0 %) 1.6 Baso % (Auto) (0.0 - 1.0 %) 0.4 Neut # (Auto) (1.8 - 7.7 K/mm3) 6.46 Lymph # (Auto) (1.0 - 5.0 K/mm3) 1.19 [place] # (Auto) (0 - 0.8 K/mm3) 0.42 Eos # (Auto) (0.0 - 0.5 K/mm3) 0.13 Baso # (Auto) (0.0 - 0.2 K/mm3) 0.03 Nucleated RBC % (0 - 0 %) 0.0 Nucleated RBCs # (Man) (0.0 - 0.1 K/mm3) 0.00 Cardiology imaging: No Echo results noted in EMR. Radiology data: Recent Impressions: RADIOLOGY - XR KNEE 3 V LT 12/31 122 Report Impression - Status: SIGNED Entered: 12/31/2021 1240 IMPRESSION: Mild degenerative changes of the left knee. Othe rwise no radiographically evident bony abnormalities are seen in the scanned left lower extremity. The subcutaneous soft tissues appear edematous. Correlate with physical exam. Location: [facility] Impression By: Alma Rae MD RADIOLOGY - XR TIBIA/FIBULA 2 V LT 12/316 Report Impression - Status: SIGNED Entered: 12/31/2021 1240 IMPRESSION: Mild degenerative changes of the left knee. Othe rwise no radiographically evident bony abnormalities are seen in the scanned left lower extremity. The subcutaneous soft tissues appear edematous. Correlate with physical exam. Location: [facility] Impression By: Alma Rae MD Results: labs reviewed, vital signs reviewed, cu rrent med profile rev'd Treatment Prophylaxis Treatment Prophylaxis Oxygen: room air Lines: peripheral CVC/PICC documentation: The data below has been imported from nursing do cumentation. Any exceptions have been noted below under Provider comments. CVC/PICC insertion date/time: N/A Provider comments on imported nursing data: [] Ulcer prophylaxis: famotidine Diagnosis, Assessment Plan Problem List/A P: 1. Cellulitis of left anterior lower leg 2. Uncontrolled type 2 diabetes mellitus with h yperglycemia, with long-term current use of insulin 3. Well-controlled hypertension 4. Tobacco use disorder 5. Hyperlipidemia due to type 2 diabetes [facility] 6. Ambulatory dysfunction 7. Hypomagnesemia 8. Left great toe amputee 9. Hx of right BKA 10. Chronic cough 11. Blind 12. DNR (do not resuscitate) discussion 13. DNR (do not resuscitate) Orders: Procedure Date/time Status LIPID PROFILE (CORONARY RISK) 01/01 0500 Active HGBA1C 01/01 0500 Active Resuscitation Status 12/31 1609 Active Vital Signs 12/31 1609 Active Present on Admission 12/31 1609 Active Notify MD- Vitals 12/31 1609 Active Activity 12/31 1609 Active THYROID STIMULATING HORMONE 12/31 1609 Active PHOSPHOROUS 12/31 1609 Active MAGNESIUM 12/31 1609 Active CBC WITH DIFF 12/31 1609 Complete BASIC METABOLIC PANEL 12/31 160 Active Case Management Consult 12/31 1609 Active Consultants: None Plan discussed with: patient, admitting physicpasha n, collaborating MD, nurse Code Status/Resusc. Discussion Resuscitation discussion: Discussed with: patient Code status: do not resuscitate Free Text DxA P Notes Free Text DxA P Notes: This patient is a 56-year-old male who presented to the ER with left leg redness of 2-day duration with assoc iated warmth and tenderness. He denies being seen by his PCP or at an outside facility e.g. an urgent care clinic, thus he was not on antibiotics pr ior to arrival. He denies any current fluid leakage or any prior history of cellulitis. Review of la bs show WBC 8.3, lactic acid 2.1 then subsequently 1.3. Emergency department physician completed sepsis bundle including fluids, cultures, lactic acid, antibiotics; Doppler was negative for DVT. He is curr ently on IV Zosyn, IV vancomycin, normal saline and morphine. He is currently seen in [place]. 1. Cellulitis Left Anterior Lower Extremity- 12/20 2 Admit WBC 8.3; Lactic Acid improved from 2.3 to 1.3. On Zosyn Vancomycin. N S IVF 125cc/hr. Morphine IV prn pain. Doppler was negative for DVT. 2. Uncontrolled Type 2 DM with hyperglycemia, wi th termite helper current use of insulin blindness- 12/31 Serum glucose 216. HbA1C ordered. Maintain nutritional support with ADA diet. Monitor FSBG ac hs. Home dose of Lantus Insulin 15u q hs; medium dose sliding scale insu osiris. 3. Controlled HTN- Admit BP 137/77; home dose of Losartan resumed. Monitor BP. 4. 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 Nicotine patch. 5. HLD due to T2DM- Assess lipid panel. 6. 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 7. Acute Hypomagnesemia- Mg 1.7; repleted with o ne gram Magnesium Oxide PO. Monitor magnesium level. Ppx: Pepcid, Lovenox DNR status per patient preference. H P, Obs, [address], > 70 mins Attestations Attestation needed: supervising physician at 1851 Electronically Signed by Ab Lucas MD on at 1422 RPT #:[id number] END OF REPORT 2021-12-31 11:20:00-00:00 [facility] ([facility]) EMERGENCY PROVIDER REPORT REPORT#:[id number] REPORT STATUS: Signed DATE:12/31/21 TIME: 1119 PATIENT: HARJINDER COLUNGA UNIT #: [id number] ROOM/BED: AGE: 56 SEX: M PCP PHYS: No Primary or Family Ph ysician SERVICE AUTHOR: Jerry Roa MD * ALL edits or amendments must be made on the el [place]/computer document * HPI-General Illness General Initial Greet Date/Time 12/31/21 1120 PCP Jhon Presentation Chief Complaint __ (leg redness) Hx Obtained From Patient Sudden in Onset? No Onset Occurred Days ago Symptom Duration Since onset Progression since Onset Unchanged Caused by No trauma by history Location Lower extremity L Quality Same as prior, Aching Radiation Does not radiate. Severity: Onset Mild Severity: Current Moderate Associated with Denies: Abdominal pain, Chest pain, Difficulty b reathing, Fever. Exacerbated by Nothing Relieved by Nothing Free Text HPI Notes Free Text HPI Notes Patient states he has had redness, warmth, tende rness to his left lower extremity for the past several days. Den ies chest pain or shortness of breath. Denies fever, falling, or trauma. Review of Systems ROS Statements All systems rev neg except as marked. Review of Systems Respiratory Denies: Cough, non-productive, Cough, productive , Dyspnea on exertion, Hemoptysis, Parox nocturnal dyspnea, Pleuritic p ain, Shortness of breath, Wheezing. Cardiovascular Denies: Chest pain, Dyspnea on exertion, Edema, Orthopnea, Palpitations, Parox nocturnal dyspnea, Syncope. Past Medical History - Adult Stated Complaint LEFT LEG REDNESS Allergies Coded Allergies: No Known Allergies (12/31/21) Home Medications Active Scripts NICOTINE (HABITROL 14 MG) 14 MG TRANSDERM DAILY NICOTINE (HABITROL 14 MG) 14 MG TRANSDERM DAILY #30 PATCH Prov: 07/01/20 CEPHALEXIN (KEFLEX) 500 MG PO Q8H 14 Days #42 CAPS Prov: 07/01/20 LOSARTAN (COZAAR) 50 MG PO DAILY LOSARTAN (COZAAR) 50 MG PO DAILY #30 TAB Prov: 08/06/21 INSULIN GLARGINE (LANTUS) 15 UNITS SUBQ BEDTIME INSULIN GLARGINE (LANTUS) 15 UNITS SUBQ BEDTIME #5 Prov: 08/06/21 INSULIN LISPRO (HumaLOG) 5 UNITS SUBQ AC INSULIN LISPRO (HumaLOG) 5 UNITS SUBQ AC #5 Prov: 08/06/21 metFORMIN (GLUCOPHAGE) 500 MG PO BID metFORMIN (GLUCOPHAGE) 500 MG PO BID #60 TABS Prov: 08/06/21 CLINDAMYCIN HCL (CLEOCIN) 300 MG PO Q6H CLINDAMYCIN HCL (CLEOCIN) 300 MG PO Q6H #40 CAP S Prov: 12/24/20 INSULIN GLARGINE (LANTUS) 0 UNITS SUBQ BEDTIME INSULIN GLARGINE (LANTUS) 0 UNITS SUBQ BEDTIME #10 ML Prov: 09/30/21 INSULIN LISPRO (HumaLOG) 5 UNITS SUBQ AC INSULIN LISPRO (HumaLOG) 5 UNITS SUBQ AC #10 ML Prov: 09/30/21 LOSARTAN (COZAAR) 50 MG PO DAILY LOSARTAN (COZAAR) 50 MG PO DAILY #30 TABS Prov: 09/30/21 metFORMIN (GLUCOPHAGE) 500 MG PO BID metFORMIN (GLUCOPHAGE) 500 MG PO BID #60 TABS Prov: 09/30/21 AMOXICILLIN/CLAV K (AUGMENTIN 875/125 MG) 875 MG PO BID AMOXICILLIN/CLAV K (AUGMENTIN 875/125 MG) 875 M G PO BID #10 TABS Prov: 09/30/21 IBUPROFEN (MOTRIN) 600 MG PO QID PRN PRN PAIN IBUPROFEN (MOTRIN) 600 MG PO QID PRN PRN PAIN # 30 TABS Prov: 09/30/21 Review of Nursing Notes Rev avail, and agree Past Medical History: Reports: Diabetes mellitus, Hypertension, Dyslip idemia.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 conscious ness is alert and responsive. Answers month and age correctly. Blinks eyes and squeezes hands appropriately upon command. Normal [id number] eye mo vements on extraocular muscle testing. No visual field losses bilaterally. Norm al symmetry of the face. No right arm, left arm, right leg, or left leg drift. No limb ataxia in any extremities. No sensory loss in the arms, legs, trunk, or face. No aphasia. No dysarthria. No extinction or inattention. Review of Systems ROS Statements All systems rev neg except as marked. Focused Review of Systems Respiratory Denies: Cough, non-productive, Cough, productive , Shortness of breath. Cardiovascular Denies: Chest pain, Syncope. GI Denies: Abdominal pain, Diarrhea, Nausea, Vomiti ng. Past Medical History - Adult Stated Complaint OUT OF INSULIN X2 MONTHS Allergies Coded Allergies: No Known Allergies (10/08/19) Home Medications Active Scripts NICOTINE (HABITROL 14 MG) 14 MG TRANSDERM DAILY NICOTINE (HABITROL 14 MG) 14 MG TRANSDERM DAILY #30 PATCH Prov: 07/01/20 LOSARTAN (COZAAR) 50 MG PO DAILY LOSARTAN (COZAAR) 50 MG PO DAILY #30 TAB Prov: 07/01/20 INSULIN GLARGINE (LANTUS) 15 UNITS SUBQ BEDTIME INSULIN GLARGINE (LANTUS) 15 UNITS SUBQ BEDTIME #5 Prov: 07/01/20 INSULIN LISPRO (HumaLOG) 5 UNITS SUBQ AC INSULIN LISPRO (HumaLOG) 5 UNITS SUBQ AC #5 Prov: 07/01/20 CEPHALEXIN (KEFLEX) 500 MG PO Q8H 14 Days #42 CAPS Prov: 07/01/20 Review of Nursing Notes Rev avail, and agree Past Medical History: Reports: Diabetes mellitus (BS 168 MG/DL LAST PM ). Additional Medical History [place] in 2003 Additional Surgical History None Family History: Reports: (father had C AD). Drug Use Denies recreational drugs Smoking status: Smoking status for patients 13 years old or old er: Never Smoker Other Social History Hx of substance and alcohol abuse Physical Exam Vital Signs Vital Signs First Documented: Result Date Time Pulse Ox 96 12/24 1206 B/P 134/72 / 1206 B/P Mean 92 12/24 1206 O2 Delivery Room air / 1206 Temp 36.7 09/05 1206 Pulse 94 09/ 1206 Resp 16 12/24 1206 Last Documented: Result Date Time Pulse Ox 100 09/05 1350 B/P 160/72 09/05 1350 B/P Mean 101 09/05 1350 O2 Delivery Room air 09/05 1350 Pulse 79 09/05 1350 Resp 20 / 1350 Temp 36.7 / 1206 Review of Vital Signs Reviewed Focused PE General/Const General/Const Awake, Alert MS Head Head Normocephalic Eyes Eyes PERRL, EOMI, Conjunctiva NL Ears/Nose/Throat Ears/Nose/Throat Airway patent, Pharynx NL, Tym panic membs NL, Ext aud canal NL Mouth Mucous membranes dry. MS Neck Neck Supple, No meningismus, Full range of tracy on, No swelling, Non-tender, No masses, No JVD, No carotid bruit, Thyroid NL Resp/Chest Respiratory/Chest Breath sounds NL, Breath soun ds = bilat, No respiratory distress, No rales, No rhonchi, No wheezing Cardiovascular Cardiovascular Heart rate NL, Regular rhythm, H eart sounds NL, No murmurs, Cap refill not delayed, Peripheral circulation N L Abdomen/GI Abdomen/GI Soft, Non-tender, No guarding, No r ebound MS Back Back Inspection NL, Non-tender, No CVA tenderne ss Lymphatic Lymphatic No gross adenopathy MS Lower Extrem Lower Ext/Pelvis/MS Inspection NL, No swelling , Non-tender, No erythema, No deformity, Neurologic intact, Vascular intact, N o edema Text/Dict Notes Right BKA. Has a chronic wou nd in left foot with no active erythema/induration/ fluctuance/drainage/foul odor. Skin Skin Color NL, Warm, Dry, Turgor NL Neurologic Neurologic Oriented X3, Speech NL, No m otor deficits, No sensory deficits, CN II - XII intact, Cerebellar NL, Memory NL, Gait NL Psychiatric Psychiatric Affect NL, Mood NL, Cognitive funct ion NL, Thought content NL Interpretation Diagnostics Lab Results Interpretation Results Laboratory Tests 12/24/20 1223: [Embedded Image Not Available] Laboratory Tests: 12/24 12/24 12/24 12/24 1533 1500 1223 1223 Chemistry Sodium (128 - 145 mmol/L) 137 Potassium (3.5 - 5.1 mmol/L) 4.4 Chloride (98 - 107 mmol/L) 104.0 Carbon Dioxide (22 - 29 mmol/L) 26.7 Anion Gap (10 - 20 mmol/L) 11 BUN (7 - 22 mg/dL) 16 Creatinine (0.55 - 1.3 mg/dL) 0.77 Glomerular Filtr Rate (>=60 mL/min) > 60 BUN/Creatinine Ratio (10 - 20) 20.8 H Glucose (70 - 110 mg/dL) 217 H Calcium (8.0 - 10.5 mg/dL) 8.1 Total Creatine Kinase (39 - 308 U/L) 38 L Troponin I (0.00 - 0.056 ng/mL) <0.015 <0.015 Hematology WBC (4.5 - 12.5 K/mm3) 6.8 RBC (4.0 - 5.8 mill/mm3) 4.60 Hgb (13.0 - 17.5 gram/dL) 13.0 Hct (42.0 - 52.0 %) 39.1 L MCV (80 - 98 fL) 85.0 MCH (27.0 - 33.0 picogram) 28.3 MCHC (33.0 - 36.0 gram/dL) 33.2 RDW (11.6 - 16.2 %) 13.7 RDW Std Deviation (37.0 - 51.0 fL) 43.3 Plt Count (150 - 450 K/mm3) 349 MPV (6.7 - 11.0 fL) 9.3 Urines Urine Color (YELLOW) YELLOW Urine Appearance (CLEAR) CLEAR Urine pH (5.0 - 8.0) 6.0 Ur Specific [place] (1.001 - 1.035) 1.020 Urine Protein (Neg - 15 mg/dL) NEGATIVE Urine Glucose (UA) (NEGATIVE mg/dL) 70-100 (1+) Urine Ketones (NEGATIVE mg/dL) NEGATIVE Urine Blood (NEGATIVE) TRACE Urine Nitrite (NEGATIVE) NEGATIVE Urine Bilirubin (NEGATIVE) NEGATIVE Urine Urobilinogen (0.0 - 0.2 mg/dL) 0.2 Ur Leukocyte Esterase (NEGATIVE uL) NEGATIVE Urine RBC (0 - 5 per HPF) 0-2 Urine WBC (0 - 5 per HPF) 0-5 Ur Epithelial Cells (Few per HPF) Few (2-5/hpf) Urine Bacteria (NONE per HPF) OCCASIONAL Recent Impressions: CAT SCAN - CT HEAD/BRAIN W/O CONT 12/24 1300 Report Impression - Status: SIGNED Entered: 12/24/2020 1326 IMPRESSION: No acute intracranial process. LOCATION: [facility] Impression By: [email or web address] - Mayuri Perla D.OTish Point of Care Testing Pulse Oximetry Pulse Ox % 98 On: Room air Interpretation Interpreted by me, Pulse oximetr y normal Time 1218 ECG #1 Interpretation Time 1246 Interpreted by ED physician NL ECG Interpretation Normal rate, No STEMI, Nor mal axis, Normal intervals, Adequate tracing ECG Q-T-ST - MO Non-specific ST changes Conduction/Ross RBBB - complete Re-Evaluation MDM Re-Evaluation/Progress #1 Text/Dict Note Patient resting comfortably and feels well. Neur o exam including strength, sensation, CN 2-12, cerebellar, gait normal. No chest pain or shortness of breath. Lungs cta bilaterally. Abdomen soft, NTN D. Tolerating po intake. Wants to go home. Will f/u w ith referred doctor and/or return for new/worsening symptoms. Time of Re-Eval 1636 Re-Eval Status Improved ED Course Medication(s) Ordered Medication(s) Ordered: Electrolytic, Caloric, And Glo Sig/Bita Start time Last Medication Dose Route Stop Time Status Admin Sodium Chloride 1,000 ML X1ED STA 12/24 1206 DC 12/24 IV 12/24 1305 1251 Patient Discharge Departure Vital Signs/Condition Vital Signs First Documented: Result Date Time Pulse Ox 96 12/24 1206 B/P 134/72 12/24 1206 B/P Mean 92 / 1206 O2 Delivery Room air / 1206 Temp 36.7 / 1206 Pulse 94 09/ 1206 Resp 16 12/24 1206 Last Documented: Result Date Time Pulse Ox 100 09/ 1350 B/P 160/72 09/05 1350 B/P Mean 101 09/05 1350 O2 Delivery Room air 09/ 1350 Pulse 79 09/ 1350 Resp 20 12/24 1350 Temp 36.7 / 1206 All vital signs available at the time of this en try have been reviewed. Clinical Impression Clinical Impression Primary Impression: Generalized weakness Disposition Decision Discharge )( Discharged to Home Yes )( Time 1637 )( Date 12/24/20 Discharge/Care Plan Counseled Regarding Diagnosi s, Lab results, Imaging studies, Prescriptions, When to return to ED, Smoking cessation (Auto) Prescriptions Current Visit Scripts CLINDAMYCIN HCL (CLEOCIN) 300 MG PO Q6H CLINDAMYCIN HCL (CLEOCIN) 300 MG PO Q6H #40 CAP S metFORMIN (GLUCOPHAGE) 500 MG PO BID metFORMIN (GLUCOPHAGE) 500 MG PO BID #60 TABS TAKE WITH MEALS Patient Instructions ED Heat Exhaustion, ED Weakness (Uncertain Cause), ED Wound Care Referrals Narda Oshea M: 1-2 Days [facility]: 1-2 Days Electronically Signed by Jerry Roa MD on 09/08 at 1644 [facility] #:[id number] END OF REPORT 2020-08-14 18:14:00-00:00 [id number] [facility] [address] [place] [address] PATIENT NAME: HARJINDER COLUNGA ADMIT DATE: 1 ACCOUNT NO: [id number] ROOM NO: C.OBS14 AGE: 55 REPORT TYPE: DISCHARGE SUMMARY SEX: M ADMITTING PHYSICIAN:Nathanael Laureano ATTENDING PHYSICIAN:Nathanael Laureano ADMISSION DATE: 06/28/2020 DISCHARGE DATE: 07/05/2020 BRIEF SUMMARY OF THE HOSPITAL COURSE: This is a 55-year-old male. The patient is legally blind, who moved from [place] a year ago and the patient states he has not seen and established any primary doctor, gets his medications through the ER. The patient states t hat he is not sure how long he has the wound in his groin and the patient was br ought in with left foot ulcer likely with peripheral vascular disease and the patient was adm itted for close monitoring and further evaluation and for further plan manageme nt. After admitting into the hospital, the patient was seen by Dr. Marito lorenz, the patient was admitted with bilateral foot wounds secondary to diabetes with peripheral neuropathy with uncontrolled diabetes, peripheral neuropathy, ce llulitis. During the stay in the hospital, the patient was seen by Dr. Ventura for nonhealing wounds of the right foot with severe peripheral vascular disea se. The patient underwent aortogram with bilateral lower extremity runoff and stent to the right superficial femoral artery, CENTERLESS GRINDING MACHINE ADJUSTER atherectomy of t he right posterior tibial artery. The patient tolerated the procedure well . After discussing with ID, Dr. Velez, the patient was discharged home on 07/05/2020 with p.o. Keflex for 2 weeks. Dictated By: Nathanael Laureano MD WT: [email or web address] Conf#: [id number]/DID#: [id number] Authenticated by MD Daryl Toro 08/15/2020 05:53:32 PM at 1753 PATIENT NAME: HARJINDER COLUNGA 917 2020-07-11 12:12:00-00:00 [id number] [facility] [address] [place] [address] PATIENT NAME: HARJINDER COLUNGA ADMIT DATE: 06/28/20 ACCOUNT NO: [id number] ROOM NO: C.OBS14 AGE: 55 REPORT TYPE: OPERATIVE REPORT SEX: M ADMITTING PHYSICIAN:Nathanael Laureano ATTENDING PHYSICIAN:Nathanael Laureano OPERATION DATE: 07/04/2020 PREOPERATIVE DIAGNOSES: Nonhealing wound of the right foot with severe peripheral vascular disease. POSTOPERATIVE DIAGNOSES: Nonhealing wound of the right foot with severe peripheral vascular disease. PROCEDURES: 1. Aortogram with bilateral lower extremity runo ff. 2. Physician interpreted ultrasound. Under real time ultrasonography the left common femoral artery was accessed with a microp uncture needle and ultrasound guidance. The left common femoral artery was danny daniel image while the needle entered the vessel lumen indicating access. This was important to minimize bleeding complications and images were stored. 3. Additional selective view s of the right posterior tibial artery with digital subtraction. This was required to further charac terize the degree of stenosis and provide adequate treatment. 4. Pedal access, right posterior tibial artery. 5. CENTERLESS GRINDING MACHINE ADJUSTER atherectomy and stent to the right superf icial femoral artery. 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 This was a difficult portion of the case. Stenting was with a 6 x 200 EverFlex. 6. CENTERLESS GRINDING MACHINE ADJUSTER atherectomy of the right posterior tibial artery with the Hawk S atherectomy and tapered NanoCross balloon. 7. A 120 minutes of conscious sedation with fent anyl and Versed given by nursing with continuous monitoring of the blood pressure, heart rate, heart rhythm and pulse oximetry. I was present and sup ervised all portions of sedation. 8. Angio-Seal closure, left common femoral arter y. 9. Manual closure of the right posterior tibial artery. 10. Flossing technique for successful crossing o f the SFA and popliteal occlusion from the foot up i nto the sheath from an up and over the left side to the right sided approach. Then flossing the wire back to an antegrade position to where work could be done from the groin sheat h. 9. CENTERLESS GRINDING MACHINE ADJUSTER of the right external iliac artery with a 7 x 80 drug-coated balloon. 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 E xcellent results were noted following intervention with stenting, etc. A 2-v essel runoff was noted at the end of the case. The patient has significant left sided disease with a left SFA stenosis in multiple areas. In addition, the tibial vessels were significantly diseased with 70% to 80% tib ioperoneal trunk stenosis as well as what appears to be a total occlusion of left anterior tibial art faye. We will plan for staged PATIENT NAME: HARJINDER COLUNGA 917 intervention as an outpatient. DETAILS OF PROCEDURE: Following consent, the patient was taken to the research lab assistant and placed supine on the table. Both vy ins were prepped and draped sterilely, as was the right foot. The left common femoral a rtery was accessed with a micropuncture needle and ultrasound guidance. A sheath was placed. An aortogram was then performed demonstrati ng there was a significant stenosis of the right external iliac artery that was a long tubular stenosis of 70%. No residual stenosis was noted following balloon an gioplasty. The Destination sheath was then placed up an d over the aortic bifurcation. With the Destination sheath up and over, we gave the patient systemic heparin. ACTs were maintained in therapeutic range. I attempted to cr oss the chronic total occlusion of the SFA proximally. There was a nipple that was note d. I entered the sagittal plane was not able to get through right posterio r tibial artery from a pedal access and then I successfully gained access acr oss the HOOD MAKER. From there, the wire was flossed back up into the sheath from th e left to the right. The TrailBlazer catheter was the n used to gain access distally and then the wire was switched and returned to its normal antegrade po sition. From here atherectomy and balloon angioplasty was performed. There was still filling defect in the SFA. For this reason, a 6 x 200 stent was used. Excellent results were noted with no residual stenosis. P TA atherectomy of the right posterior tibial artery was performed as well with improvement noted rad iographically. At the end of the case there was brisk flow through the SFA an d popliteal with no residual stenosis. Below the knee, there was 2-vessel run off. Following stenting brisk flow was noted throughout the proximal, mid and distal SFA with a 2-vessel runoff to the posterior tibial and peroneal eamon ry respectively. Residual narrowing in the right external iliac ar mike was noted and balloon angioplasty with a 7 x 80 drug-coated balloon was used here accordingly. No residual stenosis was present here ei ther. Prior to removing the sheath, CENTERLESS GRINDING MACHINE ADJUSTER atherectomy of the left tibioperoneal trunk and left posterior tibial artery was performed as well. Excellent results were noted with maint enance of 2-vessel runoff to the posterior tibial and peroneal respectively. With the sheath on the ipsilateral side a left lower extremity runoff was performed that demonstrated significant SFA, popliteal and tibial di sease. The patient will require staged intervention as an outpatient. An Angio-Seal cesilia sure device was used in the left common femoral artery and manual pr essure was held in the right posterior tibial artery at the foot. Excellent hemostasis was noted in each case. The patient was bolused with aspirin and Plavix and sent to recovery in stable condition. Dressings were applied and the counts were correct. Dictated By: Gilbert Ventura III, MD WT: OP:ALEC/[email or web address]/NTS Conf#: [id number]/DID#: [id number] Authenticated by AMRITA Rodriguez. On 07/19 11:40:13 AM Electronically Signed by Gilbert Ventura III, MD o n 07/19/20 at 1140 PATIENT NAME: HARJINDER COLUNGA 917 2020-07-05 07:39:00-00:00 [facility] REPORT#:[id number] REPORT STATUS: Signed DATE:07/05/20 TIME: 0739 PATIENT: HARJINDER COLUNGA UNIT #: [id number] ROOM/BED: [address] : 67 AGE: 55 SEX: M ATTEND: Divine Laureano Barber [facility] AUTHOR: Mazin Sr DPM R2 * ALL edits or amendments must be made on the [employer]/computer document * General VS/I O: Last Documented: Result Date Time Pulse Ox 98 07/05 720 B/P 120/76 07/05 720 B/P Mean 90.6 07/05 720 Temp 37.1 07/05 720 Pulse 89 07/05 720 Resp 19 07/05 720 O2 Delivery Room air 07/04 2222 24 hour I O ending at 0700: 07/05 0700 07/04 1900 Intake Total 250 Output Total Balance 250 Intake, Oral 250 PATIENT WEIGHT: Weight (lb): 180 Weight (oz): 6.04 Weight (kg): 81.818 Subjective Chief complaint: peter DM ft wounds w/ cellulitis HPI: pt has no complaints or issues Review of Systems Constitutional: Denies: chills, fatigue, fever. Respiratory: Denies: SOB. Cardiovascular: Denies: chest pain. GI: Denies: abdominal pain, nausea, vomiting. Objective General Medications: Active Meds + DC'd Last 24 Hrs Insulin Glargine 25 UNITS BEDTIME SUBQ Insulin Human Lispro 10 UNITS AC SUBQ Acetaminophen 650 MG Q4H PRN PRN PO Ondansetron HCl 4 MG Q4H PRN PRN IV Sodium Chloride 250 ML ASDIR PRN IV Clopidogrel Bisulfate 0 .STK-MED ONE PO (DC) Aspirin 0 .STK-MED ONE PO (DC) Iopamidol 0 .STK-MED ONE IV (DC) Hydromorphone HCl 0 .STK-MED ONE IV (DC) Hydralazine HCl 0 .STK-MED ONE IV (DC) Diphenhydramine HCl 0 .STK-MED ONE IV (DC) Lidocaine HCl 0 .STK-MED ONE INJ (DC) Hydromorphone HCl 0 .STK-MED ONE IV (DC) Midazolam HCl 0 .STK-MED ONE IV (DC) Sodium Chloride 1,000 ML .STK-MED ONE IV (DC) Fentanyl Citrate 0 .STK-MED ONE IV (DC) Heparin Sodium/Sodium Chloride 1,000 ML .STK-MED ONE I-ARTERIAL (DC) Iopamidol 0 .STK-MED ONE I-ARTERIAL (DC) Heparin Sodium (Porcine) 0 .STK-MED ONE IV (DC) Lidocaine HCl 0 .STK-MED ONE INJ (DC) Midazolam HCl 0 .STK-MED ONE IV (DC) Atorvastatin Calcium 20 MG BEDTIME PO Regadenoson 0.4 MG ASDIR IV Perflutren Lipid Microsphere DIRECTED ONCE PRN IV Sodium Chloride DIRECTED ONCE PRN IV Sodium Chloride 5 ML ONCE PRN IV Cephalexin 500 MG Q6HR PO Losartan Potassium 50 MG DAILY PO Nicotine 14 MG DAILY TRANSDERM Insulin Human Lispro 5 UNITS AC SUBQ (DC) Insulin Glargine 15 UNITS BEDTIME SUBQ (DC) Clonidine HCl 0.1 MG Q6H PRN PRN PO Enoxaparin Sodium 40 MG Q24H SUBQ Dextrose/Water 25 ML ASDIR PRN IV Glucagon 1 MG ASDIR PRN IM Insulin Human Lispro LOW DOSE SCALE ASDIR SUBQ Physical Exam General appearance: alert, awake, oriented, no a cute distress, pleasant, conversational, mental status normal, no respira tory distress Wound/incision: Location: FOCUSED LOWER EXTREMITY PODIATRIC EXAMINATION: VASCULAR: Pulses nonpalpable, DP and PT bilatera lly. Cap refill within normal limits. Hair absent at digits bilaterally. DERMATOLOGIC: Ulceration on distal aspect of lef t hallux with granular base, approximately 1.5 cm x 2 cm erythema has resolve d. On the plantar aspect of left foot, l wound with size measuring approx imately 5 x 5 cm with base with fatty tissue center but not tracking t o capsular , tendon or bone tissue. No significant drainage is noted. No foul odor. No significant edema on right lower extremity. superficial wound on the plantar aspect of first metatarsal head on the right foot with breakdown of skin. No erythema extending proxima lly on the right foot. NEUROLOGIC: Complete loss of protective sensatio n and loss of light touch, insensate to pain. ORTHO: The patient has somewhat contracted digit s 2 through 5 bilaterally, hallux abductovalgus bilaterally. Normal strengt h and range of motion, otherwise. Diagnosis, Assessment Plan Free Text A P: DIAGNOSES: Harjinder Colunga is a 55-year-old male. 1. Bilateral foot wounds secondary to diabetes w ith peripheral neuropathy. 2. Uncontrolled diabetes, A1C 11.8 3. cellulitis PLAN: infectious disease to direct antibiotics. Note that a wound culture g rew Beta-hemolytic strep. MRI reviewed and no signs of osteomyelitis or abcess is prese nt. ESR 85, CRP 51.3. ABIs report monphasic waveforms d istal to CAMPUS AMBASS[employer], stenosis on RIGHT and similar results on left below popliteal. vascular consulted, agr am results pending. WOund debridement performed at bedside 07/01/20 to beef y red bleeding tissue. No further debridement at this time. Dressed with DSD and aquacel. Pt may follow up with Dr. Marito Ray for out patient wound care. discussed with attending at 0742 RPT #:[id number] END OF REPORT 2020-07-05 07:39:00-00:00 [facility] Podiatry Progress Note REPORT#:[id number] REPORT STATUS: Signed DATE:07/05/20 TIME: 07 PATIENT: HARJINDER COLUNGA UNIT #: [id number] ROOM/BED: [address] : [birth year] AGE: 55 SEX: M ATTEND: Arpit Laureano ADM AUTHOR: Mazin Sr DPM R2 * ALL edits or amendments must be made on the [employer]/computer document * General VS/I O: Last Documented: Result Date Time Pulse Ox 98 07/05 720 B/P 120/76 07/05 720 B/P Mean 90.6 07/05 720 Temp 37.1 07/05 720 Pulse 89 07/05 720 Resp 19 07/05 720 O2 Delivery Room air 07/04 2223 24 hour I O ending at 0700: 07/05 0700 07/04 1900 Intake Total 250 Output Total Balance 250 Intake, Oral 250 PATIENT WEIGHT: Weight (lb): 180 Weight (oz): 6.04 Weight (kg): 81.818 Subjective Chief complaint: peter DM ft wounds w/ cellulitis HPI: pt has no complaints or issues Review of Systems Constitutional: Denies: chills, fatigue, fever. Respiratory: Denies: SOB. Cardiovascular: Denies: chest pain. GI: Denies: abdominal pain, nausea, vomiting. Objective General Medications: Active Meds + DC'd Last 24 Hrs Insulin Glargine 25 UNITS BEDTIME SUBQ Insulin Human Lispro 10 UNITS AC SUBQ Acetaminophen 650 MG Q4H PRN PRN PO Ondansetron HCl 4 MG Q4H PRN PRN IV Sodium Chloride 250 ML ASDIR PRN IV Clopidogrel Bisulfate 0 .STK-MED ONE PO (DC) Aspirin 0 .STK-MED ONE PO (DC) Iopamidol 0 .STK-MED ONE IV (DC) Hydromorphone HCl 0 .STK-MED ONE IV (DC) Hydralazine HCl 0 .STK-MED ONE IV (DC) Diphenhydramine HCl 0 .STK-MED ONE IV (DC) Lidocaine HCl 0 .STK-MED ONE INJ (DC) Hydromorphone HCl 0 .STK-MED ONE IV (DC) Midazolam HCl 0 .STK-MED ONE IV (DC) Sodium Chloride 1,000 ML .STK-MED ONE IV (DC) Fentanyl Citrate 0 .STK-MED ONE IV (DC) Heparin Sodium/Sodium Chloride 1,000 ML .STK-MED ONE I-ARTERIAL (DC) Iopamidol 0 .STK-MED ONE I-ARTERIAL (DC) Heparin Sodium (Porcine) 0 .STK-MED ONE IV (DC) Lidocaine HCl 0 .STK-MED ONE INJ (DC) Midazolam HCl 0 .STK-MED ONE IV (DC) Atorvastatin Calcium 20 MG BEDTIME PO Regadenoson 0.4 MG ASDIR IV Perflutren Lipid Microsphere DIRECTED ONCE PRN IV Sodium Chloride DIRECTED ONCE PRN IV Sodium Chloride 5 ML ONCE PRN IV Cephalexin 500 MG Q6HR PO Losartan Potassium 50 MG DAILY PO Nicotine 14 MG DAILY TRANSDERM Insulin Human Lispro 5 UNITS AC SUBQ (DC) Insulin Glargine 15 UNITS BEDTIME SUBQ (DC) Clonidine HCl 0.1 MG Q6H PRN PRN PO Enoxaparin Sodium 40 MG Q24H SUBQ Dextrose/Water 25 ML ASDIR PRN IV Glucagon 1 MG ASDIR PRN IM Insulin Human Lispro LOW DOSE SCALE ASDIR SUBQ Physical Exam General appearance: alert, awake, oriented, no a cute distress, pleasant, conversational, mental status normal, no respira tory distress Wound/incision: Location: FOCUSED LOWER EXTREMITY PODIATRIC EXAMINATION: VASCULAR: Pulses nonpalpable, DP and PT bilatera lly. Cap refill within normal limits. Hair absent at digits bilaterally. DERMATOLOGIC: Ulceration on distal aspect of lef t hallux with granular base, approximately 1.5 cm x 2 cm erythema has resolve d. On the plantar aspect of left foot, l wound with size measuring approx imately 5 x 5 cm with base with fatty tissue center but not tracking t o capsular , tendon or bone tissue. No significant drainage is noted. No foul odor. No significant edema on right lower extremity. superficial wound on the plantar aspect of first metatarsal head on the right foot with breakdown of skin. No erythema extending proxima lly on the right foot. NEUROLOGIC: Complete loss of protective sensatio n and loss of light touch, insensate to pain. ORTHO: The patient has somewhat contracted digit s 2 through 5 bilaterally, hallux abductovalgus bilaterally. Normal strengt h and range of motion, otherwise. Diagnosis, Assessment Plan Free Text A P: DIAGNOSES: Harjinder Colunga is a 55-year-old male. 1. Bilateral foot wounds secondary to diabetes w ith peripheral neuropathy. 2. Uncontrolled diabetes, A1C 11.8 3. cellulitis PLAN: infectious disease to direct antibiotics. Note that a wound culture g rew Beta-hemolytic strep. MRI reviewed and no signs of osteomyelitis or abcess is prese nt. ESR 85, CRP 51.3. ABIs report monphasic waveforms d istal to [employer], stenosis on RIGHT and similar results on left below popliteal. vascular consulted, agr am results pending. WOund debridement performed at bedside 07/01/20 to beef y red bleeding tissue. No further debridement at this time. Dressed with DSD and aquacel. Pt may follow up with Dr. Marito Ray for out patient wound care. discussed with attending at 0742 at 1135 RPT #:[id number] END OF REPORT 2020-07-04 10:47:00-00:00 [facility] ([facility]) Infectious Dis. Progress Note REPORT#:[id number] REPORT STATUS: Signed DATE:07/04/20 TIME: 1047 PATIENT: HARJINDER COLUNGA UNIT #: [id number] ROOM/BED: [address] : [birth year] AGE: 55 SEX: M ATTEND: Arpit Laureano ADM AUTHOR: Anam Velez MD * ALL edits or amendments must be made on the [employer]/computer document * Subjective Chief Complaint: 06-30-2020 FEELS FINE PODIATRY NOTED CX + STREPTOCOCCI 07-01-2020 HAD BED SIDE DEBRIDMENT DONE CX NOTED WOUNDS NOTED EDEUCATED ABOUT FOOT CARE ABD FOOT WEAR 07-02-2020 HAS NO C/O POIDIATRY NOTED [facility] NOTED 07-03-2020 GOING FOR SURGERY TODAY NO C/O BS 314 07-04-2020 HAD CARDIAC STRESS TEST YETERDAY GOING FRO VASCUAR TODAY HAS NO C/O Objective General VS/I O: Laboratory Tests 07/03/20 0627: [Embedded Image Not Available] Current Medications Sig/Bita Start time Last Medication Dose Route Stop Time Status Admin Atorvastatin Calcium 20 MG BEDTIME 07/03 2100 A C 07/03 PO 08/02 2101 2252 Regadenoson 0.4 MG ASDIR 07/02 1700 AC 07/03 IV 07/05 1200 1050 Perflutren Lipid See Dose ONCE PRN 07/02 1545 A C Microsphere Insts (1) IV Sodium Chloride See Dose ONCE PRN 07/02 1545 AC Insts (2) IV Sodium Chloride 5 ML ONCE PRN 07/02 1545 AC IV Cephalexin 500 MG Q6HR 07/01 1200 AC 07/04 PO 07/06 1159 0807 Losartan Potassium 50 MG DAILY 06/29 0900 AC PO 07/29 0901 0845 Nicotine 14 MG DAILY 06/29 0900 AC 07/03 TRANSDERM 07/29 0901 0844 Insulin Human Lispro 5 UNITS AC 06/29 0730 AC 0 07/03 SUBQ 07/29 0731 1731 Insulin Glargine 15 UNITS BEDTIME 06/28 2099 AC 07/03 SUBQ 07/28 210 2252 Clonidine HCl 0.1 MG Q6H PRN PRN 06/28 2014 AC 06/29 PO 07/29 2015 1747 Enoxaparin Sodium 40 MG Q24H 06/28 2014 AC 06/19 5 SUBQ 07/29 2015 225 Dextrose/Water 25 ML ASDIR PRN 06/28 1914 AC IV 07/29 1915 Glucagon 1 MG ASDIR PRN 06/28 1914 AC IM 07/29 1915 Insulin Human Lispro See Dose ASDIR 06/28 191 AC 07/03 Insts (3) SUBQ 07/28 191 1731 Dose Instructions: (1)Perflutren Lipid Microsphere: DIRECTED (2)Sodium Chloride: DIRECTED (3)Insulin Human Lispro: LOW DOSE SCALE Last Documented: Result Date Time Pulse Ox 100 07/04 0730 B/P 132/81 07/04 0730 B/P Mean 98.4 07/04 0730 Temp 36.9 07/04 0730 Pulse 70 07/04 0730 Resp 19 07/04 0730 O2 Delivery Room air 07/03 1509 Vital Signs Date Temp Pulse Resp B/P B/P Mean Pulse Ox FiO2 07/03-07/04 36.4-37.0 68-94 16-19 115-142/73-85 87.0-103.6 96-100 PATIENT WEIGHT: Weight (lb): 180 Weight (oz): 6.04 Weight (kg): 81.818 Physical Exam General appearance: alert, awake, oriented, no a cute distress, pleasant, conversational, mental status normal, no respira tory distress Wound/incision: Location: SUPERFICAL DRY WOUND ON BOTH FEET>> NO EVIDENCE OF ACTIVE INFECTION. ENT: moist mucosal membranes Cardiovascular: normal heart sounds Respiratory: no distress Abdomen: no guarding Extremities: Bilateral feet wrapped with betadin e wet-to-dry bandages which appear clean and intact. Ten derness BL ankle. No erythema or edema noted to the BL leg above the ankle. Ulcer: Type/cause: diabetic Duration: acute Location: foot Laterality: bilateral Stage: 1 Treatment Prophylaxis Treatment Prophylaxis CVC/PICC documentation: The data below has been imported from nursing do cumentation. Any exceptions have been noted below under Provider comments. CVC/PICC insertion date/time: Provider comments on imported nursing data: [] Diagnosis, Assessment Plan Problem List/A P: 1. Diabetic foot ulcer associated with diabetes mellitus due to underlying condition 2. Lesion of soft tissue of lower leg and ankle 3. Group B streptococcal infection 4. Neuropathy 5. Infected open wound Free Text A P: ASSESSMENT 55yoWM w/ PMH uncontrolled D M, peripheral neuropathy, cataracts/blindness, MO in 2003, and tobacco abuse presented for bleeding L foot ulcers. -T2DM, uncontrolled, A1c 11.8 -Peripheral neuropathy -Diabetic foot ulcers 2/2 above, BL -Cellulitis, BL foot PLAN Pt w/ bilateral diabetic rebecca t ulcers 2/2 uncontrolled diabetes (eAG nearly 300). Wound Gram stain w/ GNR and GPC in pairs, Cx NGT D. Due to the uncontrolled diabetes, Pseudomonal covera ge is advisable. Accordingly Abx changed from Unasyn to Zyvox/cefepime. At this time the cell ulitis does not appear to extend above either ankle. No fever/leukocytosis and BCx NGTD. Continue to monitor closely. BL foot MRI pending to r/o o steomyelitis, which will guide duration of therapy. Podiatry onboard and providing recommendations. Discussed disease process and importance of achi eving superior blood sugar control with patient who verbalized ellain g. 06-30-2020 WILL RE EVAL WOUNDS HOME SOON CHECK FINAL CX 07-01-2020 WOUND INFCTION , NOT DEEP >> PO ABX X 2 WEEKS GROUP B STREP KEFLEX X 2 WEEKS 07-02-2020 [facility] PO KEFLEX 08-03-2020 PO KEFLEX [facility] SURGERY TODAY 08-04-2020 PO KEFEX WILL RE EVL AFTER RE VASCUARIZATION Electronically Signed by Anam Velez MD on 0 07/04/20 at 1049 RPT #:[id number] END OF REPORT 2020-07-04 08:03:00-00:00 [facility] ([facility]) Podiatry Progress Note REPORT#:[id number] REPORT STATUS: Signed DATE:07/04/20 TIME: 802 PATIENT: HARJINDER COLUNGA UNIT #: [id number] [address] AGE: 55 SEX: M ATTEND: Arpit Laureano ADM AUTHOR: Mazin Sr DPM R2 * ALL edits or amendments must be made on the [employer]/computer document * General VS/I O: Last Documented: Result Date Time Pulse Ox 100 07/04 0730 B/P 132/81 07/04 0730 B/P Mean 98.4 07/04 0730 Temp 36.9 07/04 0730 Pulse 70 07/04 0730 Resp 19 07/04 0730 O2 Delivery Room air 07/03 1509 PATIENT WEIGHT: Weight (lb): 180 Weight (oz): 6.04 Weight (kg): 81.818 Subjective Chief complaint: peter DM ft wounds w/ cellulitis HPI: pt has no complaints or symptoms Review of Systems Constitutional: Denies: chills, fatigue, fever. Respiratory: Denies: ROSE (dyspnea on exertion), SOB. Cardiovascular: Denies: chest pain. GI: Denies: abdominal pain. Objective General Medications: Active Meds + DC'd Last 24 Hrs Atorvastatin Calcium 20 MG BEDTIME PO Regadenoson 0.4 MG ASDIR IV Perflutren Lipid Microsphere DIRECTED ONCE PRN IV Sodium Chloride DIRECTED ONCE PRN IV Sodium Chloride 5 ML ONCE PRN IV Cephalexin 500 MG Q6HR PO Losartan Potassium 50 MG DAILY PO Nicotine 14 MG DAILY TRANSDERM Insulin Human Lispro 5 UNITS AC SUBQ Insulin Glargine 15 UNITS BEDTIME SUBQ Clonidine HCl 0.1 MG Q6H PRN PRN PO Enoxaparin Sodium 40 MG Q24H SUBQ Dextrose/Water 25 ML ASDIR PRN IV Glucagon 1 MG ASDIR PRN IM Insulin Human Lispro LOW DOSE SCALE ASDIR SUBQ Physical Exam General appearance: alert, awake, oriented, no a cute distress Wound/incision: Location: FOCUSED LOWER EXTREMITY PODIATRIC EXAMINATION: VASCULAR: Pulses nonpalpable, DP and PT bilatera lly. Cap refill within normal limits. Hair absent at digits bilaterally. DERMATOLOGIC: Ulceration on distal aspect of lef t hallux with granular base, approximately 1.5 cm x 2 cm erythema has resolve d. On the plantar aspect of left foot, l wound with size measuring approx imately 5 x 5 cm with base with fatty tissue center but not tracking t o capsular , tendon or bone tissue. No significant drainage is noted. No foul odor. No significant edema on right lower extremity. superficial wound on the plantar aspect of first metatarsal head on the right foot with breakdown of skin. No erythema extending proxima lly on the right foot. NEUROLOGIC: Complete loss of protective sensatio n and loss of light touch, insensate to pain. ORTHO: The patient has somewhat contracted digit s 2 through 5 bilaterally, hallux abductovalgus bilaterally. Normal strengt h and range of motion, otherwise. Diagnosis, Assessment Plan Free Text A P: DIAGNOSES: Harjinder Colunga is a 55-year-old male. 1. Bilateral foot wounds secondary to diabetes w ith peripheral neuropathy. 2. Uncontrolled diabetes. 3. cellulitis PLAN: infectious disease to direct antibiotics. Note that a wound culture g rew Beta-hemolytic strep. MRI reviewed and no signs of osteomyelitis or abcess is prese nt. ESR 85, CRP 51.3. ABIs report monphasic waveforms d istal to [facility] [employer], stenosis on RIGHT and similar results on left below popliteal. vascular consulted and they will do aortagram this week. WOund debridement performed at bedside 06/19 07/09 to beefy red bleeding tissue. No further debridement at this time. Volodymyr ssed with DSD and aquacel. Pt may follow up with Dr. Marito Ray for out patie nt wound care. discussed with attending at 0808 RPT #:[id number] END OF REPORT 2020-07-04 08:03:00-00:00 [facility] Podiatry Progress Note REPORT#:[id number] REPORT STATUS: Signed DATE:07/04/20 TIME: 08 PATIENT: HARJINDER COLUNGA UNIT #: [id number] ROOM/BED: [address] : 69 AGE: 55 SEX: M ATTEND: Georgi,Arpit mullerebony Blandon ADM AUTHOR: Mazin Sr DPM R2 * ALL edits or amendments must be made on the [employer]/computer document * General VS/I O: Last Documented: Result Date Time Pulse Ox 100 07/04 07 B/P 132/81 07/04 0630 B/P Mean 98.4 07/04 0730 Temp 36.9 07/04 0730 Pulse 70 07/04 0730 Resp 19 07/04 0730 O2 Delivery Room air 07/03 1509 PATIENT WEIGHT: Weight (lb): 180 Weight (oz): 6.04 Weight (kg): 81.818 Subjective Chief complaint: peter DM ft wounds w/ cellulitis HPI: pt has no complaints or symptoms Review of Systems Constitutional: Denies: chills, fatigue, fever. Respiratory: Denies: ROSE (dyspnea on exertion), SOB. Cardiovascular: Denies: chest pain. GI: Denies: abdominal pain. Objective General Medications: Active Meds + DC'd Last 24 Hrs Atorvastatin Calcium 20 MG BEDTIME PO Regadenoson 0.4 MG ASDIR IV Perflutren Lipid Microsphere DIRECTED ONCE PRN IV Sodium Chloride DIRECTED ONCE PRN IV Sodium Chloride 5 ML ONCE PRN IV Cephalexin 500 MG Q6HR PO Losartan Potassium 50 MG DAILY PO Nicotine 14 MG DAILY TRANSDERM Insulin Human Lispro 5 UNITS AC SUBQ Insulin Glargine 15 UNITS BEDTIME SUBQ Clonidine HCl 0.1 MG Q6H PRN PRN PO Enoxaparin Sodium 40 MG Q24H SUBQ Dextrose/Water 25 ML ASDIR PRN IV Glucagon 1 MG ASDIR PRN IM Insulin Human Lispro LOW DOSE SCALE ASDIR SUBQ Physical Exam General appearance: alert, awake, oriented, no a cute distress Wound/incision: Location: FOCUSED LOWER EXTREMITY PODIATRIC EXAMINATION: VASCULAR: Pulses nonpalpable, DP and PT bilatera lly. Cap refill within normal limits. Hair absent at digits bilaterally. DERMATOLOGIC: Ulceration on distal aspect of lef t hallux with granular base, approximately 1.5 cm x 2 cm erythema has resolve d. On the plantar aspect of left foot, l wound with size measuring approx imately 5 x 5 cm with base with fatty tissue center but not tracking t o capsular , tendon or bone tissue. No significant drainage is noted. No foul odor. No significant edema on right lower extremity. superficial wound on the plantar aspect of first metatarsal head on the right foot with breakdown of skin. No erythema extending proxima lly on the right foot. NEUROLOGIC: Complete loss of protective sensatio n and loss of light touch, insensate to pain. ORTHO: The patient has somewhat contracted digit s 2 through 5 bilaterally, hallux abductovalgus bilaterally. Normal strengt h and range of motion, otherwise. Diagnosis, Assessment Plan Free Text A P: DIAGNOSES: Harjinder Colunga is a 55-year-old male. 1. Bilateral foot wounds secondary to diabetes w ith peripheral neuropathy. 2. Uncontrolled diabetes. 3. cellulitis PLAN: infectious disease to direct antibiotics. Note that a wound culture g rew Beta-hemolytic strep. MRI reviewed and no signs of osteomyelitis or abcess is prese nt. ESR 85, CRP 51.3. ABIs report monphasic waveforms d istal to [facility] [employer], stenosis on RIGHT and similar results on left below popliteal. vascular consulted and they will do aortagram this week. WOund debridement performed at bedside 06/19 07/09 to beefy red bleeding tissue. No further debridement at this time. Volodymyr ssed with DSD and gloriael. Pt may follow up with Dr. Marito Ray for out patie nt wound care. discussed with attending at 0808 at 1135 RPT #:[id number] END OF REPORT 2020-07-04 08:00:00-00:00 [facility] ([facility]) Hospitalist Progress Note REPORT#:[id number] REPORT STATUS: Signed DATE:07/04/20 TIME: 08 PATIENT: HARJINDER COLUNGA UNIT #: [id number] ROOM[facility]BED: [facility] : 67 AGE: 55 SEX: M ATTEND: Arpit Laureano ADM AUTHOR: Ovidio Hernandez * ALL edits or amendments must be made on the [employer]/computer document * Subjective Chief Complaint: foot pain Comments: Interval Hx: CALEB overnight Objective General VS/I O: Vital Signs: Date Time Temp Pulse Resp B/P B/P Pulse O2 O2 F low FiO2 Mean Ox Delivery Rate 07/04 0730 98.4 70 19 132/81 98.4 100 07/04 0402 97.7 69 18 115/73 87.0 96 07/04 0147 97.5 68 18 126/77 93.0 97 07/03 1939 98.6 79 16 137/85 102.2 98 07/03 1509 98.2 94 18 142/84 103.6 98 Room air 07/03 1130 97.5 93 18 132/79 96.8 96 Room air PATIENT WEIGHT: Weight (lb): 180 Weight (oz): 6.04 Weight (kg): 81.818 Medications: Active Meds + DC'd Last 24 Hrs Atorvastatin Calcium 20 MG BEDTIME PO Regadenoson 0.4 MG ASDIR IV Perflutren Lipid Microsphere DIRECTED ONCE PRN IV Sodium Chloride DIRECTED ONCE PRN IV Sodium Chloride 5 ML ONCE PRN IV Cephalexin 500 MG Q6HR PO Losartan Potassium 50 MG DAILY PO Nicotine 14 MG DAILY TRANSDERM Insulin Human Lispro 5 UNITS AC SUBQ Insulin Glargine 15 UNITS BEDTIME SUBQ Clonidine HCl 0.1 MG Q6H PRN PRN PO Enoxaparin Sodium 40 MG Q24H SUBQ Dextrose/Water 25 ML ASDIR PRN IV Glucagon 1 MG ASDIR PRN IM Insulin Human Lispro LOW DOSE SCALE ASDIR SUBQ Physical Exam General appearance: alert, awake, no acute distr ess, conversational, no respiratory distress Head/Eyes: atraumatic, normocephalic, PERRLA Neck: full range of motion, non-tender, no JVD Cardiovascular: normal heart sounds, no gallop, no murmur, no rub Respiratory: aerating well, symmetric expansion, no distress, on 2L NC Abdomen: non-tender, soft, no distention Extremities: abnormal capillary refill (Right fo ot wrapped) Musculoskeletal: decreased ROM (R foot) 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/MARINE 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 HELPER: alert, oriented X 3 Ulcer: Type/cause: diabetic Duration: acute Location: foot Laterality: bilateral Stage: 1 Psychiatry: not homicidal, not suicidal, no [place] ucinations Results Findings/Data: Laboratory Tests 07/03 07/03 07/03 1846 1508 1129 Chemistry POC Glucose (74 - 106 MG/DL) 143 H 314 H 130 H Laboratory Tests 07/03 0846 Coagulation INR 1.1 PTT (Doug) (23.4 - 37.0 SECONDS) 27.1 PT Patient/Control Mix (9.2 - 12.1 SECONDS) 12 .2 H Laboratory Tests 07/03 0846 Serology SARS-CoV-2 Ag (Rapid) (Negative) NEGATIVE Diagnosis, Assessment Plan Plan discussed with: patient, consultants, nurse , interdisc care team Free Text DxA P Notes Free text DxA P notes: 55yo M admitted for management of PAD c/b DM rebecca t wound. #PAD: NPO for agram today -continue management per vascular surgery consul t service #Cellulitis: CALEB s/p bedside debridement by DPM( 07/01) -continue management per ID consult service #T2DM: hyperglycemic; A1c 11.8 -increase AC lispro QHS lantus, continue PRN SSI #HTN: controlled -continue ARB #HLD: ASCVD > 7.5% -continue statin #Tobacco Dependence: active user -counseled RE: cessation, continue nicotine patc h #Dispo: DC pending clinical recovery -hospital medicine will continue to follow at 2110 RPT #:[id number] END OF REPORT 2020-07-03 17:03:00-00:00 [facility] Hospitalist Progress Note REPORT#:[id number] REPORT STATUS: Signed DATE:07/03/20 TIME: 1703 PATIENT: HARJINDER COULNGA UNIT #: [id number] ROOM/BED: [address] : 69 AGE: 55 SEX: M ATTEND: Arpit Laureano ADM AUTHOR: Tommy Andres POOL TABLE OPERATOR * ALL edits or amendments must be made on the [employer]/computer document * Subjective Chief Complaint: Foot pain Free Text Subj Notes Free Text Subj Notes: No acute events Review of Systems Musculoskeletal: Other musculoskeletal: Reports: other (Right foot pain). All systems rev neg: except as marked Objective General VS/I O: Vital Signs: Date Time Temp Pulse Resp B/P B/P Pulse O2 O2 F low FiO2 Mean Ox Delivery Rate 07/03 1509 98.2 94 18 142/84 103.6 98 Room air 07/03 1130 97.5 93 18 132/79 96.8 96 Room air 07/03 0717 97.7 67 18 124/76 92.1 97 Room air 07/03 0453 98.1 65 17 133/79 97.2 98 07/03 0018 98.4 67 17 99/58 72.0 96 07/02 1920 98.4 80 17 121/74 89.5 98 PATIENT WEIGHT: Weight (lb): 180 Weight (oz): 6.04 Weight (kg): 81.818 Physical Exam General appearance: alert, awake, oriented Cardiovascular: normal capillary refill, normal heart sounds, regular rate rhythm Respiratory: aerating well, clear to auscultatio n Abdomen: non-tender, normal bowel sounds, soft Extremities: abnormal capillary refill (Right fo ot wrapped) Musculoskeletal: decreased ROM (R foot) Neuro/MARINE ELECTRICIAN HELPER: alert, oriented X 3 Ulcer: Type/cause: diabetic Duration: acute Location: foot Laterality: bilateral Stage: 1 Diagnosis, Assessment Plan Free Text DxA P Notes Free text DxA P notes: 1. Bilateral foot wound secondary diabetes with peripheral neuropathy 2. Diabetes poorly controlled 3. Cellulitis of bilateral foot 4. Peripheral vascular disease Wound care Vascular input. Vascular studies show monophasic waveforms. Monitor blood sugars closely Discussed with the staff regarding plan of care Pain control Electronically Signed by Tommy Andres NP on 0 07/03/20 at 1704 RPT #:[id number] END OF REPORT 2020-07-03 17:02:00-00:00 [facility] ([facility]) Clinical Note REPORT#:[id number] REPORT STATUS: Signed DATE:07/03/20 TIME: 1702 PATIENT: HARJINDER COLUNGA UNIT #: [id number] ROOM/BED: [address] : 67 AGE: 55 SEX: M ATTEND: Arpit Laureano ADM AUTHOR: Tommy Andres POOL TABLE OPERATOR * ALL edits or amendments must be made on the [employer] document * Clinical Note Note: Had a full discussion with t codey patient about advanced directives. We had a long discussion regarding the patient's need for CPR and defibrillation in the case of cardiac arrest and mechanical ventilation and intubation in the case of respiratory arrest. Patient states that they und erstood the advance care planning terminology and description and would l juliana to be full code. Electronically Signed by Tommy Andres POOL TABLE OPERATOR on 0 07/03/20 at 1703 RPT #:[id number] END OF REPORT 2020-07-03 15:12:00-00:00 [facility] ([facility]) Infectious Dis. Progress Note REPORT#:[id number] REPORT STATUS: Signed DATE:07/03/20 TIME: 1512 PATIENT: HARJINDER COLUNGA UNIT #: [id number] ROOM/BED: [address] : 69 AGE: 55 SEX: M ATTEND: Arpit Laureano ADM AUTHOR: Anam Velez MD * ALL edits or amendments must be made on the [employer] document * Subjective Chief Complaint: 06-30-2020 FEELS FINE PODIATRY NOTED CX + STREPTOCOCCI 07-01-2020 HAD BED SIDE DEBRIDMENT DONE CX NOTED WOUNDS NOTED EDEUCATED ABOUT FOOT CARE ABD FOOT WEAR 07-02-2020 HAS NO C/O POIDIATRY NOTED [facility] NOTED 07-03-2020 GOING FOR SURGERY TODAY NO C/O BS 314 Objective General VS/I O: Laboratory Tests 07/03/20 0627: [Embedded Image Not Available] Current Medications Sig/Bita Start time Last Medication Dose Route Stop Time Status Admin Atorvastatin Calcium 20 MG BEDTIME 07/03 2100 A C PO 08/02 2101 Regadenoson 0.4 MG ASDIR 07/02 1700 AC 07/03 IV 07/05 1200 1050 Perflutren Lipid See Dose ONCE PRN 07/02 1545 A C Microsphere Insts (1) IV Sodium Chloride See Dose ONCE PRN 07/02 1545 AC Insts (2) IV Sodium Chloride 5 ML ONCE PRN 07/02 1545 AC IV Cephalexin 500 MG Q6HR 07/01 1200 AC 07/03 PO 07/06 1159 1420 Losartan Potassium 50 MG DAILY 06/29 09 AC PO 07/29 0901 0845 Nicotine 14 MG DAILY 06/29 09 AC 07/03 TRANSDERM 07/29 0901 0844 Insulin Human Lispro 5 UNITS AC 06/29 0730 AC 0 07/02 SUBQ 07/29 0731 1707 Insulin Glargine 15 UNITS BEDTIME 06/28 2100 AC 07/02 SUBQ 07/28 2101 2150 Clonidine HCl 0.1 MG Q6H PRN PRN 06/28 2014 AC 06/29 PO 07/29 2015 174 Enoxaparin Sodium 40 MG Q24H 06/28 2014 AC 06/19 3 SUBQ 07/29 2015 203 Dextrose/Water 25 ML ASDIR PRN 06/28 191 AC IV 07/28 191 Glucagon 1 MG ASDIR PRN 06/28 191 AC IM 07/28 191 Insulin Human Lispro See Dose ASDIR 06/28 191 AC 07/02 Insts (3) SUBQ 07/28 1916 2151 Dose Instructions: (1)Perflutren Lipid Microsphere: DIRECTED (2)Sodium Chloride: DIRECTED (3)Insulin Human Lispro: LOW DOSE SCALE Recent Impressions-Last 72 Hrs ULTRASOUND - DUP LE ART PETER 06/30 1730 Report Impression - Status: SIGNED Entered: 06/30/2020 181 IMPRESSION: Increased differential peak systolic velocity fo r the right common femoral and proximal superficial femoral arterie s with monophasic waveforms distal to the common femoral artery in dicative of significant stenosis between these arteries. Left infrapopliteal artery monophasic waveforms consistent with significant arterial disease distal to the popli teal artery. Bilateral RADAMES values compatible with moderate ar terial disease. Impression By: [email or web address] - Donaldo Wen MD ULTRASOUND - DOP ART 1-2 LEVELS PETER 06/30 1730 Report Impression - Status: SIGNED Entered: 06/30/20201809 IMPRESSION: Increased differential peak systolic velocity fo r the right common femoral and proximal superficial femoral arterie s with monophasic waveforms distal to the common femoral artery in dicative of significant stenosis between these arteries. Left infrapopliteal artery monophasic waveforms consistent with significant arterial disease distal to the popli teal artery. Bilateral RADAMES values compatible with moderate ar terial disease. Impression By: [email or web address] - Donaldo Wen MD Last Documented: Result Date Time Pulse Ox 98 07/03 1509 B/P 142/84 / 1509 B/P Mean 103.6 07/03 1509 O2 Delivery Room air 07/03 1509 Temp 36.8 07/03 1509 Pulse 94 07/03 1509 Resp 18 07/03 1509 Vital Signs Date Temp Pulse Resp B/P B/P Mean Pulse Ox FiO2 /14-07/03 36.4-36.9 65-94 17-18 99-142/58-84 72.0-103.6 96-98 PATIENT WEIGHT: Weight (lb): 180 Weight (oz): 6.04 Weight (kg): 81.818 Physical Exam General appearance: alert, awake, oriented, no a cute distress, pleasant, conversational, mental status normal, no respira tory distress Wound/incision: Location: SUPERFICAL DRY WOUND ON BOTH FEET>> NO EVIDENCE OF ACTIVE INFECTION. ENT: moist mucosal membranes Cardiovascular: normal heart sounds Respiratory: no distress Abdomen: no guarding Extremities: Bilateral feet wrapped with betadin e wet-to-dry bandages which appear clean and intact. Ten derness BL ankle. No erythema or edema noted to the BL leg above the ankle. Ulcer: Type/cause: diabetic Duration: acute Location: foot Laterality: bilateral Stage: 1 Diagnosis, Assessment Plan Problem List/A P: 1. Diabetic foot ulcer associated with diabetes mellitus due to underlying condition 2. Lesion of soft tissue of lower leg and ankle 3. Group B streptococcal infection 4. Neuropathy 5. Infected open wound Free Text A P: ASSESSMENT 55yoWM w/ PMH uncontrolled D M, peripheral neuropathy, cataracts/blindness, MO in 2003, and tobacco abuse presented for bleeding L foot ulcers. -T2DM, uncontrolled, A1c 11.8 -Peripheral neuropathy -Diabetic foot ulcers 2/2 above, BL -Cellulitis, BL foot PLAN Pt w/ bilateral diabetic rebecca t ulcers 2/2 uncontrolled diabetes (eAG nearly 300). Wound Gram stain w/ GNR and GPC in pairs, Cx NGT D. Due to the uncontrolled diabetes, Pseudomonal covera ge is advisable. Accordingly Abx changed from Unasyn to Zyvox/cefepime. At this time the cell ulitis does not appear to extend above either ankle. No fever/leukocytosis and BCx NGTD. Continue to monitor closely. BL foot MRI pending to r/o o steomyelitis, which will guide duration of therapy. Podiatry onboard and providing recommendations. Discussed disease process and importance of achi eving superior blood sugar control with patient who verbalized lelain g. 06-30-2020 WILL RE EVAL WOUNDS HOME SOON CHECK FINAL CX 07-01-2020 WOUND INFCTION , NOT DEEP >> PO ABX X 2 WEEKS GROUP B STREP KEFLEX X 2 WEEKS 07-02-2020 [facility]WAIT[facility] INTERVENTION PO KEFLEX 08-03-2020 PO KEFLEX [facility] SURGERY TODAY Electronically Signed by Anam Velez MD on 0 07/03/20 at 1515 RPT #:[id number] END OF REPORT 2020-07-03 13:11:00-00:00 [id number] [facility] [address] [address] [place] [address] PATIENT NAME: HARJINDER COLUNGA ADMIT DATE: 06/28/20 ACCOUNT NO: [id number] ROOM NO: [place] [address] AGE: 55 REPORT TYPE: STRESS ELECTROCARDIOGRAM SEX: M ADMITTING PHYSICIAN:Nathanael Laureano ATTENDING PHYSICIAN:Nathanael Laureano STUDY DATE: 07/03/2020 LEXISCAN NUCLEAR STRESS TEST REASON FOR STUDY: Preop cardiovascular evaluatio n and clearance. STRESS SUMMARY: The patient was stressed with Le xiscan infusion protocol. Heart rate baldemar from 72 to 9 4 beats per minute. Blood pressure fell from 136/74 to 99/55 mmHg. This is a normal hemodynamic resp onse to Lexiscan injection. FINDINGS: Baseline EKG demon strated a normal sinus rhythm with a baseline right bundle-branch block. Cannot rule out old inferio r or lateral infarcts. No new ischemic ST changes or arrhythmias were noted du ring or after stress. MYOCARDIAL PERFUSION IMAGING: Gated myocardial p erfusion SPECT imaging was carried out using 11 mCi of technetium-99m sesta mibi at rest and 30 mCi of technetium-99m sestamibi at stress. The images s how a small area of mildly reduced perfusion involving the apical c ap, which normalizes with rest images. GATED SPECT IMAGING: Gated perfusion images show ed normal LV regional wall motion and thickening with a calculated LVEF of 62%. CONCLUSION: 1. Normal hemodynamic Lexiscan stress test. 2. Inconclusive Lexiscan ECG stress test due to baseline EKG abnormalities. 3. Abnormal Lexiscan technet ium-99m sestamibi myocardial perfusion study with a small area of mild apical ischemia, otherwise no rmal myocardial perfusion involving the remaining segments. 4. Normal stress LVEF and wall motion. Calculate d LVEF of 62%. Dictated By: Wojciech Delgado MD WT: STRESS:C.CARLENE/JUAN MANUEL/LOTTIE Conf#: [id number]#: [id number] Authenticated by Wojciech Delgado MD On 08/01/2020 08:04:19 AM PATIENT NAME: HARJINDER COLUNGA 917 Electronically Signed by Wojciech Delgado MD on 0 08/01/20 at 0804 PATIENT NAME: HARJINDER COLUGNA 917 2020-07-03 13:09:00-00:00 [id number] [facility] [address] [facility]. [address] [place] [address] PATIENT NAME: HARJINDER COLUNGA ADMIT DATE: 06/28/20 ACCOUNT NO: [id number] ROOM NO: [facility] AGE: 55 REPORT TYPE: eECHOCARDIOGRAM REPORT. SEX: M ADMITTING PHYSICIAN:Nathanael Laureano ATTENDING PHYSICIAN:Nathanael Laureano *[facility]* [address] [place] [address] Transthoracic Echocardiogram Patient: Harjinder Colunga Study Date: 07/03/2020 BP: 124 / 76 Location: Bob [facility] URN: [id number] : 1965 Age: 55 Height: 67 in / 170.2 cm Gender: M Weight: 179 .6 lb / 81.6 kg BMI/BSA: 28.2 kg/m 2 / 1.98 m 2 *Ordering Physician: * Ramu Araujo *Interpreting Physician: * Wojciech Delgado MD *Full Roll Inspector: Zoe Reardon [facility] Indications: Pre-operative Cardiovascular Evalua tion. Study data: Transthoracic echocardiogram. Proced ure: Transthoracic echocardiography was performed. Images were obta ined using a Mevio E95-1 cardiac ultrasound machine. Complete 2D, complet e spectral Doppler, and color Doppler. Findings Left ventricle: The cavity size is normal. Wall thickness is normal. Systolic function is normal. The estimated eject ion fraction is 60-64%. Wall motion is normal; there are no regional wal l motion abnormalities. Left ventricular diastolic function parameters a re normal. Right ventricle: The cavity size is normal. Syst olic function is normal. Left atrium: The atrium is normal in size. Right atrium: The atrium is normal in size. PATIENT NAME: HARJINDER COLUNGA 917 Aorta: Aortic root: The aortic root is normal in size. Aortic valve: The valve is structurally normal. The valve is trileaflet. There is no evidence of stenosis. Th ere is no regurgitation. Mitral valve: The valve is structurally normal. There is no evidence of stenosis. There is no regurgitation. Tricuspid valve: The valve is structurally sarita l. There is trivial regurgitation. Pulmonic valve: The valve is structurally normal . There is no regurgitation. Pericardium: There is no pericardial effusion. Pulmonary arteries: The main pulmonary artery is normal-sized. Systemic veins: Inferior vena cava: The vessel is normal in size . Measurements Left ventricle Value Ref MILKA, LAX 4.5 cm 4.2 - 5.8 ESD, LAX 3.0 cm 2.5 - 4.0 ESD/bsa, LAX 1.5 cm/m 2 1.3 - 2.1 FS, LAX 32 % 25 - 43 PW, ED 1.1 cm 0.6 - 1.0 PW, ES 1.8 cm IVS/PW, ED 1.02 EF 61 % 52 - 72 LVOT Value Ref Diam, S 2.13 cm Area 3.6 cm 2 Peak quirino, S 1.03 m/sec Mean quirino, S 0.66 m/sec VTI, S 20.1 cm Peak grad, S 4 mm Hg Mean grad, S 2 mm Hg SV 71 ml SV/bsa 36 ml/m 2 Ventricular septum Value Ref IVS, ED 1.1 cm 0.6 - 1.0 IVS, ES 1.4 cm Right ventricle Value Ref MILKA, LAX 3.0 cm Pressure, S 27 mm Hg Left atrium Value Ref AP dim, ES 3.60 cm 3.00 - 4.00 Aortic valve Value Ref Peak v, S 1.27 m/sec Mean v, S 0.77 m/sec PATIENT NAME: HARJINDER COLUNGA 917 VTI, S 22.7 cm Mean grad, S 2.7 mm Hg Peak grad, S 6.5 mm Hg LVOT/AV, VTI ratio 0.88 ROBERT, VTI 3.13 cm 2 LVOT/AV, Vpeak ratio 0.81 ROBERT, Vmax 2.89 cm 2 Mitral valve Value Ref Peak E 0.7 m/sec Peak A 0.8 m/sec Decel time 251 ms Peak E/A ratio 0.88 Tricuspid valve Value Ref TR peak v 2.05 m/sec <=2.8 Peak RV-RA grad, S 17 mm Hg Aortic root Value Ref Root diam 3.3 cm <4.1 Ascending aorta Value Ref AAo AP diam, S 2.7 cm AAo AP diam/bsa, S 1.3 cm/m 2 Pulmonary artery Value Ref Pressure, S 23.5 mm Hg Systemic veins Value Ref Estimated CVP 10 mm Hg Conclusions Summary: 1. Left ventricle: The cavity size is normal. Wa ll thickness is normal. Systolic function is normal. The estimated ejec tion fraction is 60-64%. Wall motion is normal; there are no reg ional wall motion abnormalities. Left ventricular diastolic funct ion parameters are normal. 2. Trace tricuspid regurgitation only. 3. Insufficient TR jet to estimate PA pressure. Prepared and electronically signed by Wojciech Delgado MD 07/03/2020 13:08 Electronically Signed by Wojciech Delgado MD on 0 07/03/20 at 1309 PATIENT NAME: HARJINDER COLUNGA 917 2020-07-03 12:28:00-00:00 [facility] Cardiology Progress Note REPORT#:[id number] REPORT STATUS: Signed DATE:07/03/20 TIME: 1228 PATIENT: HARJINDER COLUNGA UNIT #: [id number] ROOM/BED: [address] : [address] AGE: 55 SEX: M ATTEND: Arpit Laureano [facility] AUTHOR: Wojciech Delgado MD * ALL edits or amendments must be made on the [employer]/computer document * Subjective Chief Complaint: Seen and examined. No overnight events. Just came back from stress test this morning. Results pending. No chest pain or dyspnea overnight. Objective General VS/I O: Vital Signs: Date Time Temp Pulse Resp B/P B/P Pulse O2 O2 F low FiO2 Mean Ox Delivery Rate 07/03 1130 97.5 93 18 132/79 96.8 96 Room air 07/03 0717 97.7 67 18 124/76 92.1 97 Room air 07/03 0453 98.1 65 17 133/79 97.2 98 07/03 0018 98.4 67 17 99/58 72.0 96 07/02 1920 98.4 80 17 121/74 89.5 98 07/02 1516 98.1 76 18 117/68 84.3 97 Room air PATIENT WEIGHT: Weight (lb): 180 Weight (oz): 6.04 Weight (kg): 81.818 Medications: Active Meds + DC'd Last 24 Hrs Regadenoson 0.4 MG ASDIR IV Perflutren Lipid Microsphere DIRECTED ONCE PRN IV Sodium Chloride DIRECTED ONCE PRN IV Sodium Chloride 5 ML ONCE PRN IV Cephalexin 500 MG Q6HR PO Losartan Potassium 50 MG DAILY PO Nicotine 14 MG DAILY TRANSDERM Insulin Human Lispro 5 UNITS AC SUBQ Insulin Glargine 15 UNITS BEDTIME SUBQ Clonidine HCl 0.1 MG Q6H PRN PRN PO Enoxaparin Sodium 40 MG Q24H SUBQ Dextrose/Water 25 ML ASDIR PRN IV Glucagon 1 MG ASDIR PRN IM Insulin Human Lispro LOW DOSE SCALE ASDIR SUBQ Physical Exam General appearance: alert, awake, oriented, no a cute distress Head/Eyes: atraumatic, EOMI, normocephalic, PERR LA ENT: moist mucosal membranes, normal nose Neck: supple/no meningismus, no bruit/NL carotid s, no JVD Cardiovascular: CV assessment: regular rate and rhythm, no ecto py, no gallop, no murmur Respiratory: clear to auscultation, no distress Abdomen: soft, non-tender, normal bowel sounds, no distention Upper extremity: UE assessment: 2+ radial pulse Lower extremity: LE assessment: foot wrapped in gauze Ulcer: Type/cause: diabetic Duration: acute Location: foot Laterality: bilateral Stage: 1 Psychiatry: normal affect, normal mood Results Findings/Data: Laboratory Tests 07/03 07/03 07/03 07/02 07/02 1129 0727 0627 2046 1515 Chemistry Sodium (137 - 145 mmol/L) 135 L Potassium (3.4 - 5.0 mmol/L) 4.9 Chloride (98 - 107 mmol/L) 101 Carbon Dioxide (22 - 30 mmol/L) 28 BUN (9 - 20 mg/dL) 19 Creatinine (0.7 - 1.3 mg/dL) 0.7 Glomerular Filtr Rate (>60) 125 Glucose (74 - 106 mg/dL) 153 H POC Glucose (74 - 106 MG/DL) 130 H 135 H 234 H 195 H Calcium (8.4 - 10.2 mg/dL) 9.1 Laboratory Tests 07/03 0846 Coagulation INR 1.1 PTT (Coamo) (23.4 - 37.0 SECONDS) 27.1 PT Patient/Control Mix (9.2 - 12.1 SECONDS) 12. 2 H Laboratory Tests 07/03 0627 Hematology WBC (5.0 - 12.0 x10 3/uL) 5.6 RBC (4.70 - 6.10 x10 6/uL) 4.56 L Hgb (14.0 - 18.0 g/dL) 13.1 L Hct (37.0 - 49.0 %) 41.1 MCV (80 - 94 fL) 90 MCH (27 - 31 pg) 28.7 MCHC (33 - 37 g/dL) 31.9 L RDW (11.5 - 15.5 %) 12.2 Plt Count (130 - 400 x10 3/uL) 436 H MPV (9.4 - 16.4 fL) 9.3 L Neut % (Auto) (43 - 65 %) 64.7 Lymph % (Auto) (20.5 - 45.5 %) 22.3 [place] % (Auto) (5.5 - 11.7 %) 9.6 Eos % (Auto) (0.9 - 2.9 %) 2.1 Baso % (Auto) (0.2 - 1.0 %) 0.9 Neut # (Auto) (2.2 - 4.8 x10 3/uL) 3.63 Lymph # (Auto) (1.3 - 2.9 x10 3/uL) 1.25 L [place] # (Auto) (0.3 - 0.8 x10 3/uL) 0.54 Eos # (Auto) (0.0 - 0.2 x10 3/uL) 0.12 Baso # (Auto) (0.0 - 0.1 x10 3/uL) 0.05 Immature Gran % (0.0 - 2.0 %) 0.4 Nucleated RBC % (0 - 1.0 %) 0.0 Laboratory Tests 07/03 0846 Serology SARS-CoV-2 Ag (Rapid) (Negative) NEGATIVE Diagnosis, Assessment Plan Free Text DxA P Notes Free Text DxA P Notes: 55 year old man with CAD s/p MO (did not [facility] for follow-up [facility]), DM, smoker presenting fo r foot wounds, podiatry evaluating for further debridement. Cardiology consulted for pre-operative evaluatio n. 1. preoperative evaluation -intermediate risk - f/u TTE and Lexiscan nuclear stress today give n past MO and inability to exercise 2. DM Monitor blood sugar 3. Foot wounds negative for osteomyelitis on MRI Management per ID and podiatry 4. PVD Aortogram per vascular Monitor lower extremities. Electronically Signed by Wojciech Delgado MD on at 1231 RPT #:[id number] END OF REPORT 2020-07-03 12:28:00-00:00 [facility] ([facility]) Cardiology Progress Note REPORT#:[id number] REPORT STATUS: Signed DATE:07/03/20 TIME: 1228 PATIENT: HARJINDER COLUNGA UNIT #: [id number] ROOM/BED: [address] : 67 AGE: 55 SEX: M ATTEND: Arpit Laureano ADM AUTHOR: Wojciech Delgado MD * ALL edits or amendments must be made on the [employer]/computer document * See Addendum Subjective Chief Complaint: Seen and examined. No overnight events. Just came back from stress test this morning. Results pending. No chest pain or dyspnea overnight. Objective General VS/I O: Vital Signs: Date Time Temp Pulse Resp B/P B/P Pulse O2 O2 F low FiO2 Mean Ox Delivery Rate 07/03 1130 97.5 93 18 132/79 96.8 96 Room air 07/03 0717 97.7 67 18 124/76 92.1 97 Room air 07/03 0453 98.1 65 17 133/79 97.2 98 07/03 0018 98.4 67 17 99/58 72.0 96 07/02 1920 98.4 80 17 121/74 89.5 98 07/02 1516 98.1 76 18 117/68 84.3 97 Room air PATIENT WEIGHT: Weight (lb): 180 Weight (oz): 6.04 Weight (kg): 81.818 Medications: Active Meds + DC'd Last 24 Hrs Regadenoson 0.4 MG ASDIR IV Perflutren Lipid Microsphere DIRECTED ONCE PRN IV Sodium Chloride DIRECTED ONCE PRN IV Sodium Chloride 5 ML ONCE PRN IV Cephalexin 500 MG Q6HR PO Losartan Potassium 50 MG DAILY PO Nicotine 14 MG DAILY TRANSDERM Insulin Human Lispro 5 UNITS AC SUBQ Insulin Glargine 15 UNITS BEDTIME SUBQ Clonidine HCl 0.1 MG Q6H PRN PRN PO Enoxaparin Sodium 40 MG Q24H SUBQ Dextrose/Water 25 ML ASDIR PRN IV Glucagon 1 MG ASDIR PRN IM Insulin Human Lispro LOW DOSE SCALE ASDIR SUBQ Physical Exam General appearance: alert, awake, oriented, no a cute distress Head/Eyes: atraumatic, EOMI, normocephalic, PERR LA ENT: moist mucosal membranes, normal nose Neck: supple/no meningismus, no bruit/NL carotid s, no JVD Cardiovascular: CV assessment: regular rate and rhythm, no ecto py, no gallop, no murmur Respiratory: clear to auscultation, no distress Abdomen: soft, non-tender, normal bowel sounds, no distention Upper extremity: UE assessment: 2+ radial pulse Lower extremity: LE assessment: foot wrapped in gauze Ulcer: Type/cause: diabetic Duration: acute Location: foot Laterality: bilateral Stage: 1 Psychiatry: normal affect, normal mood Results Findings/Data: Laboratory Tests 07/03 07/03 07/03 07/02 07/02 1129 0727 0627 2046 1515 Chemistry Sodium (137 - 145 mmol/L) 135 L Potassium (3.4 - 5.0 mmol/L) 4.9 Chloride (98 - 107 mmol/L) 101 Carbon Dioxide (22 - 30 mmol/L) 28 BUN (9 - 20 mg/dL) 19 Creatinine (0.7 - 1.3 mg/dL) 0.7 Glomerular Filtr Rate (>60) 125 Glucose (74 - 106 mg/dL) 153 H POC Glucose (74 - 106 MG/DL) 130 H 135 H 234 H 195 H Calcium (8.4 - 10.2 mg/dL) 9.1 Laboratory Tests 07/03 0846 Coagulation INR 1.1 PTT (Doug) (23.4 - 37.0 SECONDS) 27.1 PT Patient/Control Mix (9.2 - 12.1 SECONDS) 12. 2 H Laboratory Tests 07/03 0627 Hematology WBC (5.0 - 12.0 x10 3/uL) 5.6 RBC (4.70 - 6.10 x10 6/uL) 4.56 L Hgb (14.0 - 18.0 g/dL) 13.1 L Hct (37.0 - 49.0 %) 41.1 MCV (80 - 94 fL) 90 MCH (27 - 31 pg) 28.7 MCHC (33 - 37 g/dL) 31.9 L RDW (11.5 - 15.5 %) 12.2 Plt Count (130 - 400 x10 3/uL) 436 H MPV (9.4 - 16.4 fL) 9.3 L Neut % (Auto) (43 - 65 %) 64.7 Lymph % (Auto) (20.5 - 45.5 %) 22.3 [place] % (Auto) (5.5 - 11.7 %) 9.6 Eos % (Auto) (0.9 - 2.9 %) 2.1 Baso % (Auto) (0.2 - 1.0 %) 0.9 Neut # (Auto) (2.2 - 4.8 x10 3/uL) 3.63 Lymph # (Auto) (1.3 - 2.9 x10 3/uL) 1.25 L [place] # (Auto) (0.3 - 0.8 x10 3/uL) 0.54 Eos # (Auto) (0.0 - 0.2 x10 3/uL) 0.12 Baso # (Auto) (0.0 - 0.1 x10 3/uL) 0.05 Immature Gran % (0.0 - 2.0 %) 0.4 Nucleated RBC % (0 - 1.0 %) 0.0 Laboratory Tests 07/03 0846 Serology SARS-CoV-2 Ag (Rapid) (Negative) NEGATIVE Diagnosis, Assessment Plan Free Text DxA P Notes Free Text DxA P Notes: 55 year old man with CAD s/p MO (did not present [facility] for follow-up [facility]), DM, smoker presenting fo r foot wounds, podiatry evaluating for further debridement. Cardiology consulted for pre-operative evaluatio n. 1. preoperative evaluation -intermediate risk - f/u TTE and Lexiscan nuclear stress today give n past MO and inability to exercise 2. DM Monitor blood sugar 3. Foot wounds negative for osteomyelitis on MRI Management per ID and podiatry 4. PVD Aortogram per vascular Monitor lower extremities. Electronically Signed by Wojciech Delgado MD on at 1231 Addendum 1: 07/03/20 1313 by Wojciech Delgado MD Echo showed normal LVEF and wall motion. EF 60-6 4%. Normal diastolic function. No significant valve abnormalities. Lexiscan nuclear stress showed a very sm all area of mild apical ischemia only. Otherwise normal perfusion in the remaining myoc ardial segments. Stress EF of 62%. Therefore okay to proceed with any other needed procedures from podiatry. Overall very low CV risk still. Simply recommend adding ator vastatin 20 mg qHS with eventual LDL goal less than 70. Otherwise stable CV status. Cardiology signing off. Thank you. Electronically Signed by Wojciech Delgado MD on at 1319 RPT #:[id number] END OF REPORT 2020-07-03 07:59:00-00:00 [facility] Podiatry Progress Note REPORT#:[id number] REPORT STATUS: Signed DATE:07/03/20 TIME: 075 PATIENT: HARJINDER COLUNGA UNIT #: [id number] ROOM/BED: [address] : 67 AGE: 55 SEX: M ATTEND: Arpit Laureano [facility] AUTHOR: Mazin Sr DPVasquez R2 * ALL edits or amendments must be made on the [employer]/computer document * General VS/I O: Last Documented: Result Date Time Pulse Ox 97 07/03 716 B/P 124/76 07/03 716 B/P Mean 92.1 07/03 716 O2 Delivery Room air 07/03 716 Temp 36.5 07/03 716 Pulse 67 07/03 716 Resp 18 07/03 716 PATIENT WEIGHT: Weight (lb): 180 Weight (oz): 6.04 Weight (kg): 81.818 Subjective Chief complaint: peter DM ft wounds w/ cellulitis HPI: Pt has no complaints or symptoms to report Review of Systems Constitutional: Denies: chills, fatigue, fever. Respiratory: Denies: ROSE (dyspnea on exertion), SOB. Cardiovascular: Denies: chest pain. GI: Denies: abdominal pain, vomiting. Objective General Medications: Active Meds + DC'd Last 24 Hrs Regadenoson 0.4 MG ASDIR IV Perflutren Lipid Microsphere DIRECTED ONCE PRN IV Sodium Chloride DIRECTED ONCE PRN IV Sodium Chloride 5 ML ONCE PRN IV Cephalexin 500 MG Q6HR PO Losartan Potassium 50 MG DAILY PO Nicotine 14 MG DAILY TRANSDERM Insulin Human Lispro 5 UNITS AC SUBQ Insulin Glargine 15 UNITS BEDTIME SUBQ Clonidine HCl 0.1 MG Q6H PRN PRN PO Enoxaparin Sodium 40 MG Q24H SUBQ Dextrose/Water 25 ML ASDIR PRN IV Glucagon 1 MG ASDIR PRN IM Insulin Human Lispro LOW DOSE SCALE ASDIR SUBQ Physical Exam General appearance: alert, awake, oriented, no a cute distress, pleasant Wound/incision: Location: FOCUSED LOWER EXTREMITY PODIATRIC EXAMINATION: VASCULAR: Pulses nonpalpable, DP and PT bilatera lly. Cap refill within normal limits. Hair absent at digits bilaterally. DERMATOLOGIC: Ulceration on distal aspect of lef t hallux with granular base, approximately 1.5 cm x 2 cm erythema has resolve d. On the plantar aspect of left foot, l wound with size measuring approx imately 5 x 5 cm with base with fatty tissue center but not tracking t o capsular , tendon or bone tissue. No significant drainage is noted. No foul odor. No significant edema on right lower extremity. superficial wound on the plantar aspect of first metatarsal head on the right foot with breakdown of skin. No erythema extending proxima lly on the right foot. NEUROLOGIC: Complete loss of protective sensatio n and loss of light touch, insensate to pain. ORTHO: The patient has somewhat contracted digit s 2 through 5 bilaterally, hallux abductovalgus bilaterally. Normal strengt h and range of motion, otherwise. Diagnosis, Assessment Plan Free Text A P: DIAGNOSES: Harjinder Colunga is a 55-year-old male. 1. Bilateral foot wounds secondary to diabetes w ith peripheral neuropathy. 2. Uncontrolled diabetes. 3. cellulitis PLAN: The patient will be admitted for infectiou s disease to direct antibiotics. Note that a wound culture g rew Beta-hemolytic strep. MRI reviewed and no signs of osteomyelitis or abcess is prese nt. ESR 85, CRP 51.3. ABIs report monphasic waveforms d istal to [facility], stenosis on RIGHT and similar results on left below popliteal. vascular consulted and they will do aortagram next week. WOund debridement performed at bedside 06/19 07/09 to beefy red bleeding tissue. No further debridement at this time. Volodymyr ssed with DSD and aquacel. discussed with attending at 0804 [facility] #:[id number] END OF REPORT 2020-07-03 07:59:00-00:00 [facility] Podiatry Progress Note REPORT#:[id number] REPORT STATUS: Signed DATE:07/03/20 TIME: 075 PATIENT: HARJINDER COLUNGA UNIT #: [id number] ROOM/BED: [address] : 67 AGE: 55 SEX: M ATTEND: Arpit Laureano ADM AUTHOR: Mazin Sr DPM R2 * ALL edits or amendments must be made on the [employer]/computer document * General VS/I O: Last Documented: Result Date Time Pulse Ox 97 07/03 716 B/P 124/76 07/03 716 B/P Mean 92.1 07/03 716 O2 Delivery Room air 07/03 716 Temp 36.5 07/03 716 Pulse 67 07/03 716 Resp 18 07/03 716 PATIENT WEIGHT: Weight (lb): 180 Weight (oz): 6.04 Weight (kg): 81.818 Subjective Chief complaint: peter DM ft wounds w/ cellulitis HPI: Pt has no complaints or symptoms to report Review of Systems Constitutional: Denies: chills, fatigue, fever. Respiratory: Denies: ROSE (dyspnea on exertion), SOB. Cardiovascular: Denies: chest pain. GI: Denies: abdominal pain, vomiting. Objective General Medications: Active Meds + DC'd Last 24 Hrs Regadenoson 0.4 MG ASDIR IV Perflutren Lipid Microsphere DIRECTED ONCE PRN IV Sodium Chloride DIRECTED ONCE PRN IV Sodium Chloride 5 ML ONCE PRN IV Cephalexin 500 MG Q6HR PO Losartan Potassium 50 MG DAILY PO Nicotine 14 MG DAILY TRANSDERM Insulin Human Lispro 5 UNITS AC SUBQ Insulin Glargine 15 UNITS BEDTIME SUBQ Clonidine HCl 0.1 MG Q6H PRN PRN PO Enoxaparin Sodium 40 MG Q24H SUBQ Dextrose/Water 25 ML ASDIR PRN IV Glucagon 1 MG ASDIR PRN IM Insulin Human Lispro LOW DOSE SCALE ASDIR SUBQ Physical Exam General appearance: alert, awake, oriented, no a cute distress, pleasant Wound/incision: Location: FOCUSED LOWER EXTREMITY PODIATRIC EXAMINATION: VASCULAR: Pulses nonpalpable, DP and PT bilatera lly. Cap refill within normal limits. Hair absent at digits bilaterally. DERMATOLOGIC: Ulceration on distal aspect of lef t hallux with granular base, approximately 1.5 cm x 2 cm erythema has resolve d. On the plantar aspect of left foot, l wound with size measuring approx imately 5 x 5 cm with base with fatty tissue center but not tracking t o capsular , tendon or bone tissue. No significant drainage is noted. No foul odor. No significant edema on right lower extremity. superficial wound on the plantar aspect of first metatarsal head on the right foot with breakdown of skin. No erythema extending proxima lly on the right foot. NEUROLOGIC: Complete loss of protective sensatio n and loss of light touch, insensate to pain. ORTHO: The patient has somewhat contracted digit s 2 through 5 bilaterally, hallux abductovalgus bilaterally. Normal strengt h and range of motion, otherwise. Diagnosis, Assessment Plan Free Text A P: DIAGNOSES: Harjinder Colunga is a 55-year-old male. 1. Bilateral foot wounds secondary to diabetes w ith peripheral neuropathy. 2. Uncontrolled diabetes. 3. cellulitis PLAN: The patient will be admitted for infectiou s disease to direct antibiotics. Note that a wound culture g rew Beta-hemolytic strep. MRI reviewed and no signs of osteomyelitis or abcess is prese nt. ESR 85, CRP 51.3. ABIs report monphasic waveforms d istal to [facility], stenosis on RIGHT and similar results on left below popliteal. vascular consulted and they will do aortagram next week. WOund debridement performed at bedside 06/19 07/09 to beefy red bleeding tissue. No further debridement at this time. Volodymyr ssed with DSD and aquacel. discussed with attending at 0804 at 1135 RPT #:[id number] END OF REPORT 2020-07-02 16:40:00-00:00 [facility] ([facility]) Int. Cardiology Consult Note REPORT#:[id number] REPORT STATUS: Signed DATE:07/02/20 TIME: 1640 PATIENT: HARJINDER COLUNGA UNIT #: [id number] ROOM/BED: [address] : 67 AGE: 55 SEX: M ATTEND: Arpit Laureano ADM AUTHOR: Ramu Araujo MD * ALL edits or amendments must be made on the [employer]/computer document * History of Present Illness History of Present Illness Requesting clinician: Georgi Reason for consult: Pre-operative assessment Chief complaint: Foot wounds HPI: 55-year-old man, legally blind, DM, CAD with untreated MO in 2003 (patient did not follow-up [facility]) presenting with foot wounds. Cardiology is consulted for pre-operative evalua tion. No chest pain, fever, chills, dyspnea. He does not walk much due to foot wounds. Podiatry is considering further debridement and is requesting cardiology evaluation. History - Adult longitudinal Past medical history: Reports: Diabetes mellitus (BS 168 MG/DL LAST PM ). Additional medical history: MO in 2003 Additional surgical history: None Family history: Reports: (father had C AD). Drug use: Denies recreational drugs Smoking status: Smoking status for patients 13 years old or old er: Current every day smoker Date last smoked: 06/28/20 Packs per day: 1 Years smoked: 40 Pack years: 40 Other social history: Hx of substance and alcoho l abuse Allergies: Coded Allergies: No Known Allergies (10/08/19) Review of Systems Additional notes: 13 point ROS reviewed and negative except as men tioned in HPI Objective VS/I O: Last Documented: Result Date Time Pulse Ox 97 07/03 1515 B/P 117/68 07/03 1515 B/P Mean 84.3 07/03 1515 O2 Delivery Room air 07/03 1515 Temp 36.7 07/03 1515 Pulse 76 07/03 1515 Resp 18 07/03 1515 PATIENT WEIGHT: Weight (lb): 180 Weight (oz): 6.04 Weight (kg): 81.818 General appearance: alert, awake Head/Eyes: atraumatic, clear cornea ENT: moist mucosal membranes, normal nose Neck: full range of motion, non-tender Cardiovascular: CV assessment: regular rate and rhythm, normal heart sounds Respiratory: clear to auscultation, no distress Abdomen: soft, non-tender Musculoskeletal: full range of motion Neuro/[employer]: alert, oriented X 3 Skin: foot wounds bandaged Ulcer: Type/cause: diabetic Duration: acute Location: foot Laterality: bilateral Stage: 1 Psychiatry: normal affect, normal judgment/insig ht Results Findings/Data: Laboratory Tests 07/02 07/02 07/02 07/01 07/01 1515 1107 0743 1916 1752 Chemistry POC Glucose (74 - 106 MG/DL) 195 H 179 H 124 H 129 H 174 H EKG interpretation: sinus tachycardia, right bun dle branch block Assessment Plan Free Text A P: 55 year old man with CAD s/p MO (did not present to [facility] for follow-up PCI), DM, smoker presenting fo r foot wounds, podiatry evaluating for further debridement. Cardiology consulted for pre-operative evaluatio n. 1. preoperative evaluation -TTE -nuclear stress given past MO and inability to e xercise 2. DM Monitor blood sugar 3. Foot wounds negative for osteomyelitis on MRI Management per ID and podiatry 4. PVD Aortogram per vascular Monitor lower extremities. at 1648 RPT #:[id number] END OF REPORT 2020-07-02 15:12:00-00:00 [facility] Progress Note REPORT#:[id number] REPORT STATUS: Signed DATE:07/02/20 TIME: 1511 PATIENT: HARJINDER COLUNGA UNIT #: [id number] ROOM/BED: [address] : 67 AGE: 55 SEX: M ATTEND: Arpit Laureano ADM AUTHOR: Nathanael Laureano * ALL edits or amendments must be made on the [employer]/computer document * Subjective Chief Complaint: Pain over the bilateral foot Nausea No fever no chills Patient reports: Yes: pain. Comments: Allergies Allergy Severity Reaction Updated Coded No Known Allergies 10/08/19 Laboratory Tests: 07/02 07/02 07/01 07/01 1107 0743 1916 1752 Chemistry POC Glucose (74 - 106 MG/DL) 179 H 124 H 129 H 174 H Recent Impressions: ULTRASOUND - DUP LE ART PETER 06/30 1730 Report Impression - Status: SIGNED Entered: 06/30/20201809 IMPRESSION: Increased differential peak systolic velocity fo r the right common femoral and proximal superficial femoral arterie s with monophasic waveforms distal to the common femoral artery in dicative of significant stenosis between these arteries. Left infrapopliteal artery monophasic waveforms consistent with significant arterial disease distal to the popli teal artery. Bilateral RADAMES values compatible with moderate ar terial disease. Impression By: Alejandrina Wen MD ULTRASOUND - DOP ART 1-2 LEVELS PETER 06/30 1730 Report Impression - Status: SIGNED Entered: 06/30/20201809 IMPRESSION: Increased differential peak systolic velocity fo r the right common femoral and proximal superficial femoral arterie s with monophasic waveforms distal to the common femoral artery in dicative of significant stenosis between these arteries. Left infrapopliteal artery monophasic waveforms consistent with significant arterial disease distal to the popli teal artery. Bilateral RADAMES values compatible with moderate ar terial disease. Impression By: Alejandrina Wen MD Vital Signs: Date Time Temp Pulse Resp B/P B/P Pulse O2 O2 Flow FiO2 Mean Ox Delivery Rate 07/02 1109 98.2 76 18 119/74 89.1 98 Room air 07/02 0749 97.7 75 18 125/81 95.6 96 07/02 0435 97.7 73 14 102/66 78.3 96 07/02 0007 97.9 69 16 95/58 70.1 95 07/01 1916 98.1 77 16 118/75 89.1 99 Current Medications Sig/Bita Start time Last Medication Dose Route Stop Time Status Admin Cephalexin 500 MG Q6HR 07/01 1200 AC 07/02 PO 07/06 1159 1233 Losartan Potassium 50 MG DAILY 06/29 899 AC PO 07/29 09 0912 Nicotine 14 MG DAILY 06/29 899 AC 07/02 TRANSDERM 07/29 09 0912 Insulin Human Lispro 5 UNITS AC 06/29 0730 AC 0 07/02 SUBQ 07/29 0731 1233 Insulin Glargine 15 UNITS BEDTIME 06/28 2100 AC 07/01 SUBQ 07/28 210 203 Clonidine HCl 0.1 MG Q6H PRN PRN 06/28 2014 AC 06/29 PO 07/29 2015 174 Enoxaparin Sodium 40 MG Q24H 06/28 2014 AC 06/19 3 SUBQ 07/28 Dextrose/Water 25 ML ASDIR PRN 06/28 1914 AC IV 07/28 191 Glucagon 1 MG ASDIR PRN 06/28 191 AC IM 07/28 191 Insulin Human Lispro See Dose ASDIR 06/28 191 AC 07/02 Insts (1) SUBQ 07/28 191 1233 Dose Instructions: (1)Insulin Human Lispro: LOW DOSE SCALE Objective General VS/I O: Vital Signs: Date Time Temp Pulse Resp B/P B/P Pulse O2 O2 F low FiO2 Mean Ox Delivery Rate 07/02 1109 98.2 76 18 119/74 89.1 98 Room air 07/02 0749 97.7 75 18 125/81 95.6 96 07/02 0435 97.7 73 14 102/66 78.3 96 07/02 0007 97.9 69 16 95/58 70.1 95 07/01 1916 98.1 77 16 118/75 89.1 99 PATIENT WEIGHT: Weight (lb): 180 Weight (oz): 6.04 Weight (kg): 81.818 Physical Exam General appearance: alert, awake HEENT: atraumatic, EOMI Neck: non-tender, no JVD Cardiovascular: normal S1/S2 Respiratory: clear to auscultation Abdomen: non-tender, soft Extremities: no edema Ulcer: Type/cause: diabetic Duration: acute Location: foot Laterality: bilateral Stage: 1 Diagnosis, Assessment Plan Free Text A P: 1. Bilateral foot wound secondary diabetes with peripheral neuropathy 2. Diabetes poorly controlled 3. Cellulitis of bilateral foot 4. Peripheral vascular disease Wound care Vascular input Monitor blood sugars closely Discussed with the staff regarding plan of care Pain control at 2240 RPT #:[id number] END OF REPORT 2020-07-02 11:55:00-00:00 [facility]) Vascular Surgery Progress Note REPORT#:[id number] REPORT STATUS: Signed DATE:07/02/20 TIME: 1155 PATIENT: HARJINDER COLUNGA UNIT #: [id number] ROOM/BED: [address] : [birth year] AGE: 55 SEX: M ATTEND: Arpit Laureano ADM AUTHOR: Enrrique Zuñiga MD R2 * ALL edits or amendments must be made on the [employer] document * Subjective Comments: Patient reports unchanged co mplaints of R foot wound. No acute overnight events reported. Review of Systems All systems rev neg: except as marked Objective General VS/I O Last Documented: Result Date Time Pulse Ox 98 07/02 1109 B/P 119/74 07/02 1109 B/P Mean 89.1 07/02 1109 O2 Delivery Room air 07/02 1109 Temp 36.8 07/02 1109 Pulse 76 07/02 1109 Resp 18 07/02 1109 PATIENT WEIGHT: Weight (lb): 180 Weight (oz): 6.04 Weight (kg): 81.818 Nutrition assessment: The data set between the solid lines has been im ported from the dietitian's assessment. Any exceptions have been noted under Provider comments. BMI Calculated: 28.3 Nutrition related diagnosis: Nutrition diagnosis details: Nutrition problem: Nutrition etiology: Nutrition signs and symptoms: Nutrition prescription: Dietitian name: Assessment completed: Provider comments on imported dietitian assessme nt: General appearance: alert, awake, oriented HEENT: anicteric, mucosal membranes moist, pupil s reactive to light Neck: full range of motion, non-tender, normal t hyroid Cardiovascular: normal heart sounds, regular rat e rhythm, no gallop Respiratory: aerating well, clear to auscultatio n, symmetric expansion Abdomen: soft, non-tender, normal bowel sounds Extremities: abnormal temperature, dry, moves al l Pulse assess: Other pulse assess: Doppler study +: R femoral, L femoral, R poplite al, L popliteal, L posterior tibialis, R dorsalis pedis, L dorsalis pedis. 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 X 3, normal speech Skin: dry, normal temperature, Erethematous R le g Ulcer: Type/cause: diabetic Duration: acute Location: foot Laterality: bilateral Stage: 1 Current Medications Medications: Active Meds + DC'd Last 24 Hrs Cephalexin 500 MG Q6HR PO Losartan Potassium 50 MG DAILY PO Nicotine 14 MG DAILY TRANSDERM Insulin Human Lispro 5 UNITS AC SUBQ Insulin Glargine 15 UNITS BEDTIME SUBQ Clonidine HCl 0.1 MG Q6H PRN PRN PO Enoxaparin Sodium 40 MG Q24H SUBQ Dextrose/Water 25 ML ASDIR PRN IV Glucagon 1 MG ASDIR PRN IM Insulin Human Lispro LOW DOSE SCALE ASDIR SUBQ Results Findings/Data: Laboratory Tests 07/02 07/01 07/01 0743 1916 1752 Chemistry POC Glucose (74 - 106 MG/DL) 124 H 129 H 174 H Results: All labs and results reviewed by attend ing surgeon Diagnosis, Assessment Plan Free Text A P: 55 year old with PMH uncontr olled DM, peripheral neuropathy, cataracts/blindness , [place] in 2003, and tobacco abuse presented with f or foot ulcers and PAD AFVSS b/l foot ulcers worse on lef t side but pain and claudication worse on the right side. labs an imaging reviewed plan: will discuss with attending plans for artogram t omorrow - COVID ordered - NPO - hold anticoagulation continue medical managment podiatry and infectious disease onboard. Electronically Signed by Enrrique Zuñiga MD R2 on 07/02 at 1202 RPT #:[id number] END OF REPORT 2020-07-02 11:55:00-00:00 [facility] Vascular Surgery Progress Note REPORT#:[id number] REPORT STATUS: Signed DATE:07/02/20 TIME: 1155 PATIENT: HARJINDER COLUNGA UNIT #: [id number] ROOM/BED: [address] : [birth year] AGE: 55 SEX: M ATTEND: Arpit Laureano [facility] AUTHOR: Enrrique Zuñiga MD R2 * ALL edits or amendments must be made on the [employer]/computer document * Enrrique Zuñiga 07/02/20 1155: Subjective Comments: Patient reports unchanged co mplaints of R foot wound. No acute overnight events reported. Review of Systems All systems rev neg: except as marked Objective General VS/I O Last Documented: Result Date Time Pulse Ox 98 07/02 1109 B/P 119/74 07/02 1109 B/P Mean 89.1 07/02 1109 O2 Delivery Room air 07/02 1109 Temp 36.8 07/02 1109 Pulse 76 07/02 1109 Resp 18 07/02 1109 PATIENT WEIGHT: Weight (lb): 180 Weight (oz): 6.04 Weight (kg): 81.818 Nutrition assessment: The data set between the solid lines has been im ported from the dietitian's assessment. Any exceptions have been noted under Provider comments. BMI Calculated: 28.3 Nutrition related diagnosis: Nutrition diagnosis details: Nutrition problem: Nutrition etiology: Nutrition signs and symptoms: Nutrition prescription: Dietitian name: Assessment completed: Provider comments on imported dietitian assessme nt: General appearance: alert, awake, oriented HEENT: anicteric, mucosal membranes moist, pupil s reactive to light Neck: full range of motion, non-tender, normal t hyroid Cardiovascular: normal heart sounds, regular rat e rhythm, no gallop Respiratory: aerating well, clear to auscultatio n, symmetric expansion Abdomen: soft, non-tender, normal bowel sounds Extremities: abnormal temperature, dry, moves al l Pulse assess: Other pulse assess: Doppler study +: R femoral, L femoral, R poplite al, L popliteal, L posterior tibialis, R dorsalis pedis, L dorsalis pedis. 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 X 3, normal speech Skin: dry, normal temperature, Erethematous R le g Ulcer: Type/cause: diabetic Duration: acute Location: foot Laterality: bilateral Stage: 1 Current Medications Medications: Active Meds + DC'd Last 24 Hrs Cephalexin 500 MG Q6HR PO Losartan Potassium 50 MG DAILY PO Nicotine 14 MG DAILY TRANSDERM Insulin Human Lispro 5 UNITS AC SUBQ Insulin Glargine 15 UNITS BEDTIME SUBQ Clonidine HCl 0.1 MG Q6H PRN PRN PO Enoxaparin Sodium 40 MG Q24H SUBQ Dextrose/Water 25 ML ASDIR PRN IV Glucagon 1 MG ASDIR PRN IM Insulin Human Lispro LOW DOSE SCALE ASDIR SUBQ Results Findings/Data: Laboratory Tests 07/02 07/01 07/01 0743 1916 1752 Chemistry POC Glucose (74 - 106 MG/DL) 124 H 129 H 174 H Results: All labs and results reviewed by attend ing surgeon Diagnosis, Assessment Plan Free Text A P: 55 year old with PMH uncontr olled DM, peripheral neuropathy, cataracts/blindness , [place] in 2003, and tobacco abuse presented with f or foot ulcers and PAD AFVSS b/l foot ulcers worse on lef t side but pain and claudication worse on the right side. labs an imaging reviewed plan: will discuss with attending plans for artogram t omorrow - COVID ordered - NPO - hold anticoagulation continue medical managment podiatry and infectious disease onboard. Gilbert VenturaTish 07/14/20 1003: Diagnosis, Assessment Plan Free Text A P: agree Electronically Signed by Enrrique Zuñiga MD R2 on 07/02 at 1202 RPT #:[id number] END OF REPORT 2020-07-02 11:55:00-00:00 [facility] Vascular Surgery Progress Note REPORT#:[id number] REPORT STATUS: Signed DATE:07/02/20 TIME: 1155 PATIENT: HARJINDER COLUNGA UNIT #: [id number] ROOM/BED: [address] : [birth year] AGE: 55 SEX: M ATTEND: Arpit Laureano ADM AUTHOR: Enrrique Zuñiga MD R2 * ALL edits or amendments must be made on the [employer]/computer document * Enrrique Zuñiga 07/02/20 1155: Subjective Comments: Patient reports unchanged co mplaints of R foot wound. No acute overnight events reported. Review of Systems All systems rev neg: except as marked Objective General VS/I O Last Documented: Result Date Time Pulse Ox 98 07/02 1109 B/P 119/74 07/02 1109 B/P Mean 89.1 07/02 1109 O2 Delivery Room air 07/02 1109 Temp 36.8 07/02 1109 Pulse 76 07/02 1109 Resp 18 07/02 1109 PATIENT WEIGHT: Weight (lb): 180 Weight (oz): 6.04 Weight (kg): 81.818 Nutrition assessment: The data set between the solid lines has been im ported from the dietitian's assessment. Any exceptions have been noted under Provider comments. BMI Calculated: 28.3 Nutrition related diagnosis: Nutrition diagnosis details: Nutrition problem: Nutrition etiology: Nutrition signs and symptoms: Nutrition prescription: Dietitian name: Assessment completed: Provider comments on imported dietitian assessme nt: General appearance: alert, awake, oriented HEENT: anicteric, mucosal membranes moist, pupil s reactive to light Neck: full range of motion, non-tender, normal t hyroid Cardiovascular: normal heart sounds, regular rat e rhythm, no gallop Respiratory: aerating well, clear to auscultatio n, symmetric expansion Abdomen: soft, non-tender, normal bowel sounds Extremities: abnormal temperature, dry, moves al l Pulse assess: Other pulse assess: Doppler study +: R femoral, L femoral, R poplite al, L popliteal, L posterior tibialis, R dorsalis pedis, L dorsalis pedis. 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 X 3, normal speech Skin: dry, normal temperature, Erethematous R le g Ulcer: Type/cause: diabetic Duration: acute Location: foot Laterality: bilateral Stage: 1 Current Medications Medications: Active Meds + DC'd Last 24 Hrs Cephalexin 500 MG Q6HR PO Losartan Potassium 50 MG DAILY PO Nicotine 14 MG DAILY TRANSDERM Insulin Human Lispro 5 UNITS AC SUBQ Insulin Glargine 15 UNITS BEDTIME SUBQ Clonidine HCl 0.1 MG Q6H PRN PRN PO Enoxaparin Sodium 40 MG Q24H SUBQ Dextrose/Water 25 ML ASDIR PRN IV Glucagon 1 MG ASDIR PRN IM Insulin Human Lispro LOW DOSE SCALE ASDIR SUBQ Results Findings/Data: Laboratory Tests 07/02 07/01 07/01 0743 1916 1752 Chemistry POC Glucose (74 - 106 MG/DL) 124 H 129 H 174 H Results: All labs and results reviewed by attend ing surgeon Diagnosis, Assessment Plan Free Text A P: 55 year old with PMH uncontr olled DM, peripheral neuropathy, cataracts/blindness , [place] in 2003, and tobacco abuse presented with f or foot ulcers and PAD AFVSS b/l foot ulcers worse on lef t side but pain and claudication worse on the right side. labs an imaging reviewed plan: will discuss with attending plans for artogram t omorrow - COVID ordered - NPO - hold anticoagulation continue medical managment podiatry and infectious disease onboard. Gilbert Ventura 07/14/20 1003: Diagnosis, Assessment Plan Free Text A P: agree Electronically Signed by Enrrique Zuñiga MD R2 on 07/02 at 1202 at 1024 RPT #:[id number] END OF REPORT 2020-07-02 09:49:00-00:00 [facility] ([facility]) Infectious Dis. Progress Note REPORT#:[id number] REPORT STATUS: Signed DATE:07/02/20 TIME: 948 PATIENT: HARJINDER COLUNGA UNIT #: [id number] ROOM/BED: [address] : 69 AGE: 55 SEX: M ATTEND: Arpit Laureano ADM AUTHOR: Anam Velez MD * ALL edits or amendments must be made on the [employer]/computer document * Subjective Chief Complaint: 06-30-2020 FEELS FINE PODIATRY NOTED CX + STREPTOCOCCI 07-01-2020 HAD BED SIDE DEBRIDMENT DONE CX NOTED WOUNDS NOTED EDEUCATED ABOUT FOOT CARE ABD FOOT WEAR 07-02-2020 HAS NO C/O POIDIATRY NOTED CVS NOTED Patient reports: No: complaints, abdominal pain, burning with uri [place], cough, shortness of breath, vomiting. Objective General VS/I O: Current Medications Sig/Bita Start time Last Medication Dose Route Stop Time Status Admin Cephalexin 500 MG Q6HR 07/01 1200 AC 07/02 PO 07/06 1159 0555 Losartan Potassium 50 MG DAILY 06/29 0900 AC PO 07/29 900 0912 Nicotine 14 MG DAILY 06/29 0900 AC 07/02 TRANSDERM 07/29 0901 0912 Insulin Human Lispro 5 UNITS AC 06/29 0730 AC 0 07/02 SUBQ 07/29 0731 0912 Insulin Glargine 15 UNITS BEDTIME 06/28 2099 AC 07/01 SUBQ 07/28 Linezolid 600 MG Q12HR 06/28 2099 DC 07/01 PO 07/12 2058 09 Cefepime HCl 1 GM Q8H 06/28 2029 DC 07/01 Sterile Water 10 ML IV 07/12 2028 0414 Clonidine HCl 0.1 MG Q6H PRN PRN 06/28 2014 AC 06/29 PO 07/29 2015 174 Enoxaparin Sodium 40 MG Q24H 06/28 2014 AC 06/19 3 SUBQ 07/28 Dextrose/Water 25 ML ASDIR PRN 06/28 1914 AC IV 07/29 1915 Glucagon 1 MG ASDIR PRN 06/28 1914 AC IM 07/29 1915 Insulin Human Lispro See Dose ASDIR 06/28 1914 AC 06/30 Insts (1) SUBQ 07/28 191 184 Dose Instructions: (1)Insulin Human Lispro: LOW DOSE SCALE Recent Impressions-Last 72 Hrs ULTRASOUND - DUP LE ART PETER 06/30 1730 Report Impression - Status: SIGNED Entered: 06/30/20201809 IMPRESSION: Increased differential peak systolic velocity fo r the right common femoral and proximal superficial femoral arterie s with monophasic waveforms distal to the common femoral artery in dicative of significant stenosis between these arteries. Left infrapopliteal artery monophasic waveforms consistent with significant arterial disease distal to the popli teal artery. Bilateral RADAMES values compatible with moderate ar terial disease. Impression By: Alejandrina Wen MD ULTRASOUND - DOP ART 1-2 LEVELS PETER 06/30 1730 Report Impression - Status: SIGNED Entered: 06/30/20201809 IMPRESSION: Increased differential peak systolic velocity fo r the right common femoral and proximal superficial femoral arterie s with monophasic waveforms distal to the common femoral artery in dicative of significant stenosis between these arteries. Left infrapopliteal artery monophasic waveforms consistent with significant arterial disease distal to the popli teal artery. Bilateral RADAMES values compatible with moderate ar terial disease. Impression By: Alejandrina Wen MD Last Documented: Result Date Time Pulse Ox 96 07/02 0749 B/P 125/81 07/02 0749 B/P Mean 95.6 07/02 0749 Temp 36.5 07/02 0749 Pulse 75 07/02 0749 Resp 18 07/02 0749 O2 Delivery Room air 06/28 1458 Vital Signs Date Temp Pulse Resp B/P B/P Mean Pulse Ox FiO 2 07/01-07/02 36.5-36.7 69-91 -18 95-125/58-81 70.1-95.6 95-100 PATIENT WEIGHT: Weight (lb): 180 Weight (oz): 6.04 Weight (kg): 81.818 Physical Exam General appearance: alert, awake, oriented, no a cute distress, pleasant, conversational, mental status normal, no respira tory distress ENT: moist mucosal membranes Cardiovascular: normal heart sounds Respiratory: no distress Abdomen: no guarding Extremities: Bilateral feet wrapped with betadin e wet-to-dry bandages which appear clean and intact. Ten derness BL ankle. No erythema or edema noted to the BL leg above the ankle. Ulcer: Type/cause: diabetic Duration: acute Location: foot Laterality: bilateral Stage: 1 Treatment Prophylaxis Treatment Prophylaxis CVC/PICC documentation: The data below has been imported from nursing do cumentation. Any exceptions have been noted below under Provider comments. CVC/PICC insertion date/time: Provider comments on imported nursing data: [] Diagnosis, Assessment Plan Problem List/A P: 1. Diabetic foot ulcer associated with diabetes mellitus due to underlying condition 2. Lesion of soft tissue of lower leg and ankle 3. Group B streptococcal infection 4. Neuropathy 5. Infected open wound Free Text A P: ASSESSMENT 55yoWM w/ PMH uncontrolled D M, peripheral neuropathy, cataracts/blindness, [place] in 2003, and tobacco abuse presented for bleeding L foot ulcers. -T2DM, uncontrolled, A1c 11.8 -Peripheral neuropathy -Diabetic foot ulcers 2/2 above, BL -Cellulitis, BL foot PLAN Pt w/ bilateral diabetic rebecca t ulcers 2/2 uncontrolled diabetes (eAG nearly 300). Wound Gram stain w/ GNR and GPC in pairs, Cx NGT D. Due to the uncontrolled diabetes, Pseudomonal covera ge is advisable. Accordingly Abx changed from Unasyn to Zyvox/cefepime. At this time the cell ulitis does not appear to extend above either ankle. No fever/leukocytosis and BCx NGTD. Continue to monitor closely. BL foot MRI pending to r/o o steomyelitis, which will guide duration of therapy. Podiatry onboard and providing recommendations. Discussed disease process and importance of achi eving superior blood sugar control with patient who verbalized ellain g. 06-30-2020 WILL RE EVAL WOUNDS HOME SOON CHECK FINAL CX 07-01-2020 WOUND INFCTION , NOT DEEP >> PO ABX X 2 WEEKS GROUP B STREP KEFLEX X 2 WEEKS 07-02-2020 AWAITING CV[facility] INTERVENTION PO KEFLEX Electronically Signed by Anam Velez MD on 0 07/02/20 at 0951 RPT #:[id number] END OF REPORT 2020-07-02 07:54:00-00:00 [facility] Podiatry Progress Note REPORT#:[id number] REPORT STATUS: Signed DATE:07/02/20 TIME: 0754 PATIENT: HARJINDER COLUNGA UNIT #: [id number] ROOM/BED: [address] : 69 AGE: 55 SEX: M ATTEND: Arpit Laureano ADM AUTHOR: Mazin Sr DPM R2 * ALL edits or amendments must be made on the [employer] document * General VS/I O: Last Documented: Result Date Time Pulse Ox 96 07/02 0749 B/P 125/81 07/02 0749 B/P Mean 95.6 07/02 0749 Temp 36.5 07/02 0749 Pulse 75 07/02 0749 Resp 18 07/02 07 O2 Delivery Room air 06/28 1458 PATIENT WEIGHT: Weight (lb): 180 Weight (oz): 6.04 Weight (kg): 81.818 Subjective Chief complaint: peter DM ft wounds w/ cellulitis HPI: pt has no complaints at this time Review of Systems Constitutional: Denies: chills, fatigue, fever. Respiratory: Denies: ROSE (dyspnea on exertion), SOB. Cardiovascular: Denies: chest pain. GI: Denies: abdominal pain. Objective General Medications: Active Meds + DC'd Last 24 Hrs Cephalexin 500 MG Q6HR PO Losartan Potassium 50 MG DAILY PO Nicotine 14 MG DAILY TRANSDERM Insulin Human Lispro 5 UNITS AC SUBQ Insulin Glargine 15 UNITS BEDTIME SUBQ Linezolid 600 MG Q12HR PO (DC) Cefepime HCl 1 GM Q8H IV (DC) Sterile Water 10 ML Clonidine HCl 0.1 MG Q6H PRN PRN PO Enoxaparin Sodium 40 MG Q24H SUBQ Dextrose/Water 25 ML ASDIR PRN IV Glucagon 1 MG ASDIR PRN IM Insulin Human Lispro LOW DOSE SCALE ASDIR SUBQ Physical Exam General appearance: alert, awake, oriented, no a cute distress, pleasant Wound/incision: Location: FOCUSED LOWER EXTREMITY PODIATRIC EXAMINATION: VASCULAR: Pulses nonpalpable, DP and PT bilatera lly. Cap refill within normal limits. Hair absent at digits bilaterally. DERMATOLOGIC: Ulceration on distal aspect of lef t hallux with granular base, approximately 1.5 cm x 2 cm erythema has resolve d. On the plantar aspect of left foot, l wound with size measuring approx imately 5 x 5 cm with base overly soft soft tissue breakdown concernin g for deep tissue wound. No significant drainage is noted. No foul odor. No significant edema on right lower extremity. superficial wound on the plantar aspect of first metatarsal head on the right foot with breakdown of skin. No erythema extending proxima lly on the right foot. NEUROLOGIC: Complete loss of protective sensatio n and loss of light touch, insensate to pain. ORTHO: The patient has somewhat contracted digit s 2 through 5 bilaterally, hallux abductovalgus bilaterally. Normal strengt h and range of motion, otherwise. Diagnosis, Assessment Plan Free Text A P: DIAGNOSES: Harjinder Colunga is a 55-year-old male. 1. Bilateral foot wounds secondary to diabetes w ith peripheral neuropathy. 2. Uncontrolled diabetes. 3. cellulitis PLAN: The patient will be admitted for infectiou s disease to direct antibiotics. Note that a wound culture g rew Beta-hemolytic strep. MRI reviewed and no signs of osteomyelitis or abcess is prese nt. ESR 85, CRP 51.3. ABIs report monphasic waveforms d istal to [employer], stenosis on RIGHT and similar results on left below popliteal. vascular consulted and they will do aortagram next week. WOund debridement performed at bedside 06/19 07/09 to beefy red bleeding tissue. Additional, deeper debridement needed in OR later this week. Dressed with DSD and betadine discussed with attending at 0801 RPT #:[id number] END OF REPORT 2020-07-02 07:54:00-00:00 [facility] [place] [facility] Podiatry Progress Note REPORT#:[id number] REPORT STATUS: Signed DATE:07/02/20 TIME: 075 PATIENT: HARJINDER COLUNGA UNIT #: [id number] ROOM/BED: [address] : [birth year] AGE: 55 SEX: M ATTEND: Arpit Laureano ADM AUTHOR: Mazin Sr DPM R2 * ALL edits or amendments must be made on the [employer]/computer document * General VS/I O: Last Documented: Result Date Time Pulse Ox 96 07/02 0749 B/P 125/81 07/02 0749 B/P Mean 95.6 07/02 0749 Temp 36.5 07/02 0749 Pulse 75 07/02 0749 Resp 18 07/02 0749 O2 Delivery Room air 06/28 1458 PATIENT WEIGHT: Weight (lb): 180 Weight (oz): 6.04 Weight (kg): 81.818 Subjective Chief complaint: peter DM ft wounds w/ cellulitis HPI: pt has no complaints at this time Review of Systems Constitutional: Denies: chills, fatigue, fever. Respiratory: Denies: ROSE (dyspnea on exertion), SOB. Cardiovascular: Denies: chest pain. GI: Denies: abdominal pain. Objective General Medications: Active Meds + DC'd Last 24 Hrs Cephalexin 500 MG Q6HR PO Losartan Potassium 50 MG DAILY PO Nicotine 14 MG DAILY TRANSDERM Insulin Human Lispro 5 UNITS AC SUBQ Insulin Glargine 15 UNITS BEDTIME SUBQ Linezolid 600 MG Q12HR PO (DC) Cefepime HCl 1 GM Q8H IV (DC) Sterile Water 10 ML Clonidine HCl 0.1 MG Q6H PRN PRN PO Enoxaparin Sodium 40 MG Q24H SUBQ Dextrose/Water 25 ML ASDIR PRN IV Glucagon 1 MG ASDIR PRN IM Insulin Human Lispro LOW DOSE SCALE ASDIR SUBQ Physical Exam General appearance: alert, awake, oriented, no a cute distress, pleasant Wound/incision: Location: FOCUSED LOWER EXTREMITY PODIATRIC EXAMINATION: VASCULAR: Pulses nonpalpable, DP and PT bilatera lly. Cap refill within normal limits. Hair absent at digits bilaterally. DERMATOLOGIC: Ulceration on distal aspect of lef t hallux with granular base, approximately 1.5 cm x 2 cm erythema has resolve d. On the plantar aspect of left foot, l wound with size measuring approx imately 5 x 5 cm with base overly soft soft tissue breakdown concernin g for deep tissue wound. No significant drainage is noted. No foul odor. No significant edema on right lower extremity. superficial wound on the plantar aspect of first metatarsal head on the right foot with breakdown of skin. No erythema extending proxima lly on the right foot. NEUROLOGIC: Complete loss of protective sensatio n and loss of light touch, insensate to pain. ORTHO: The patient has somewhat contracted digit s 2 through 5 bilaterally, hallux abductovalgus bilaterally. Normal strengt h and range of motion, otherwise. Diagnosis, Assessment Plan Free Text A P: DIAGNOSES: Harjinder Colunga is a 55-year-old male. 1. Bilateral foot wounds secondary to diabetes w ith peripheral neuropathy. 2. Uncontrolled diabetes. 3. cellulitis PLAN: The patient will be admitted for infectiou s disease to direct antibiotics. Note that a wound culture g rew Beta-hemolytic strep. MRI reviewed and no signs of osteomyelitis or abcess is prese nt. ESR 85, CRP 51.3. ABIs report monphasic waveforms d istal to [employer], stenosis on RIGHT and similar results on left below popliteal. vascular consulted and they will do aortagram next week. WOund debridement performed at bedside 06/19 07/09 to beefy red bleeding tissue. Additional, deeper debridement needed in OR later this week. Dressed with DSD and betadine discussed with attending at 0801 at 1135 RPT #:[id number] END OF REPORT 2020-07-01 19:59:00-00:00 [facility] ([facility]) Vascular Surgery Consult Note REPORT#:[id number] REPORT STATUS: Signed DATE:07/01/20 TIME: 1958 PATIENT: HARJINDER COLUNGA UNIT #: [id number] ROOM/BED: [address] : [birth year] AGE: 55 SEX: M ATTEND: Arpit Laureano ADM AUTHOR: Eliot Vale MD R1 * ALL edits or amendments must be made on the [employer]/computer document * History of Present Illness Requesting Clinician: Mazin Sr MD Reason for consult: PAD , nonhealing ulcers Chief complaint: nonhealing ulcers, LLE claudication HPI: 55 year old with PMH uncontr olled DM, peripheral neuropathy, cataracts/blindness , MO in 2003, and tobacco ab use presented with for foot ulcers. Patient reports h/o claudication mostly on the right foot. Us sh owed Increased differential peak systolic velocity for the right common femo ral and proximal superficial femoral arteries with monophasic wavefor ms distal to the common femoral artery indicative of significant stenosis between these arteries. Left infrapopliteal artery monophasic waveforms consistent with significant arterial disease distal to t he popliteal artery. Bilateral RADAMES values compatible with moderate arterial disease. Vasacular surgery consutled for evaluation. History - Adult longitudinal Past medical history: Reports: Diabetes mellitus (BS 168 MG/DL LAST PM ). Additional medical history: MO in 2003 Additional surgical history: None Drug use: Denies recreational drugs Smoking status: Smoking status for patients 13 years old or old er: Current every day smoker Date last smoked: 06/28/20 Packs per day: 1 Years smoked: 40 Pack years: 40 Other social history: Hx of substance and alcoho l abuse Allergies: Coded Allergies: No Known Allergies (10/08/19) Review of Systems Constitutional: Denies: chills, fatigue, fever. Skin: Reports: abrasion, laceration. Denies: bruising, contusion, ecchymosis. Allergy/Immun: Denies: anaphylaxis, hives. Eyes: Denies: redness, discharge, itching. ENT: Denies: earache, mouth pain, nasal congestion, n ose bleeding. Respiratory: Denies: non productive cough , parox nocturnal dyspnea, pleurisy, pleuritic pain, pneumonia, productive cough (sputum), SOB, wheez ing. Cardiovascular: Denies: chest pain, edema, orthopnea, palpitatio ns. GI: Denies: abdominal pain, anorexia, constipation, diarrhea, GERD, hematemesis. : Denies: dysuria, flank pain, frequency. Musculoskeletal: Reports: extremity pain. Denies: arthritis, extr emity swelling, joint pain, joint swelling. Heme: Denies: adenopathy, bleeding, bruising. Endocrine: Denies: cold intolerance, heat intolerance, poly dipsia. Neuro: Denies: bowel dysfunction, confusion, dizziness, focal weakness. Psych: Denies: agitation, anxiety. Objective VS/I O: Last Documented: Result Date Time Pulse Ox 99 07/01 1916 B/P 118/75 07/01 1916 B/P Mean 89.1 07/01 1916 Temp 36.7 07/01 1916 Pulse 77 07/01 1916 Resp 16 07/01 1916 O2 Delivery Room air 06/28 1458 24 hour I O ending at 0700: 07/01 0700 06/30 1900 Intake Total 940 Output Total 504 Balance 436 Intake, Oral 940 Number Voids 4 Output, Urine 504 PATIENT WEIGHT: Weight (lb): 180 Weight (oz): 6.04 Weight (kg): 81.818 General appearance: alert, awake, oriented HEENT: anicteric, mucosal membranes moist Neck: full range of motion, non-tender Cardiovascular: normal heart sounds, regular rat e rhythm Respiratory: aerating well, clear to auscultatio n Abdomen: soft, non-tender, normal bowel sounds Genitourinary: no bladder distention, no flank p ain Extremities: abnormal temperature, moves all, no rmal Pulse assess: Vascular pulse assess: Doppler study +: R femoral, L femoral, R poplit eal, L popliteal, L posterior tibialis, R dorsalis pedis, L dorsalis pedis. Do ppler study -: R posterior tibialis. 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 Left infrapopliteal artery monophasic waveforms consistent with significant arterial disease distal to the popli teal artery. Bilateral RADAMES values compatible with moderate ar terial disease Diagnosis, Assessment Plan Free Text A P: 55 year old with PMH uncontr olled DM, peripheral neuropathy, cataracts/blindness , MO in 2003, and tobacco abuse presented with f or foot ulcers and PAD AFVSS b/l foot ulcers worse on lef t side but pain and claudication worse on the right side. labs an imaging reviewed plan: will discuss with attending plans for artogram n ext week continue medical managment podiatry and infectious disease onboard. at 2013 RPT #:[id number] END OF REPORT 2020-07-01 19:59:00-00:00 [facility]) Vascular Surgery Consult Note REPORT#:[id number] REPORT STATUS: Signed DATE:07/01/20 TIME: 1958 PATIENT: HARJINDER COLUNGA UNIT #: [id number] ROOM/BED: [address] : [birth year] AGE: 55 SEX: M ATTEND: Arpit Laureano ADM AUTHOR: Eliot Vale MD R1 * ALL edits or amendments must be made on the [employer]/computer document * Eliot Vale 07/01/201958: History of Present Illness Requesting Clinician: Mazin Sr MD Reason for consult: PAD , nonhealing ulcers Chief complaint: nonhealing ulcers, LLE claudication HPI: 55 year old with PMH uncontr olled DM, peripheral neuropathy, cataracts/blindness , MO in 2003, and tobacco ab use presented with for foot ulcers. Patient reports h/o claudication mostly on the right foot. Us sh owed Increased differential peak systolic velocity for the right common femo ral and proximal superficial femoral arteries with monophasic wavefor ms distal to the common femoral artery indicative of significant stenosis between these arteries. Left infrapopliteal artery monophasic waveforms consistent with significant arterial disease distal to t he popliteal artery. Bilateral RADAMES values compatible with moderate arterial disease. Vasacular surgery consutled for evaluation. History - Adult longitudinal Past medical history: Reports: Diabetes mellitus (BS 168 MG/DL LAST PM ). Additional medical history: MO in 2003 Additional surgical history: None Drug use: Denies recreational drugs Smoking status: Smoking status for patients 13 years old or old er: Current every day smoker Date last smoked: 06/28/20 Packs per day: 1 Years smoked: 40 Pack years: 40 Other social history: Hx of substance and alcoho l abuse Allergies: Coded Allergies: No Known Allergies (10/08/19) Review of Systems Constitutional: Denies: chills, fatigue, fever. Skin: Reports: abrasion, laceration. Denies: bruising, contusion, ecchymosis. Allergy/Immun: Denies: anaphylaxis, hives. Eyes: Denies: redness, discharge, itching. ENT: Denies: earache, mouth pain, nasal congestion, n ose bleeding. Respiratory: Denies: non productive cough , parox nocturnal dyspnea, pleurisy, pleuritic pain, pneumonia, productive cough (sputum), SOB, wheez ing. Cardiovascular: Denies: chest pain, edema, orthopnea, palpitatio ns. GI: Denies: abdominal pain, anorexia, constipation, diarrhea, GERD, hematemesis. : Denies: dysuria, flank pain, frequency. Musculoskeletal: Reports: extremity pain. Denies: arthritis, extr emity swelling, joint pain, joint swelling. Heme: Denies: adenopathy, bleeding, bruising. Endocrine: Denies: cold intolerance, heat intolerance, poly dipsia. Neuro: Denies: bowel dysfunction, confusion, dizziness, focal weakness. Psych: Denies: agitation, anxiety. Objective VS/I O: Last Documented: Result Date Time Pulse Ox 99 07/01 1916 B/P 118/75 07/01 1916 B/P Mean 89.1 07/01 1916 Temp 36.7 07/01 1916 Pulse 77 07/01 1916 Resp 16 07/01 1916 O2 Delivery Room air 06/28 1458 24 hour I O ending at 0700: 07/01 0700 06/30 1900 Intake Total 940 Output Total 504 Balance 436 Intake, Oral 940 Number Voids 4 Output, Urine 504 PATIENT WEIGHT: Weight (lb): 180 Weight (oz): 6.04 Weight (kg): 81.818 General appearance: alert, awake, oriented HEENT: anicteric, mucosal membranes moist Neck: full range of motion, non-tender Cardiovascular: normal heart sounds, regular rat e rhythm Respiratory: aerating well, clear to auscultatio n Abdomen: soft, non-tender, normal bowel sounds Genitourinary: no bladder distention, no flank p ain Extremities: abnormal temperature, moves all, no rmal Pulse assess: Vascular pulse assess: Doppler study +: R femoral, L femoral, R poplit eal, L popliteal, L posterior tibialis, R dorsalis pedis, L dorsalis pedis. Do ppler study -: R posterior tibialis. 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 Left infrapopliteal artery monophasic waveforms consistent with significant arterial disease distal to the popli teal artery. Bilateral RADAMES values compatible with moderate ar terial disease Diagnosis, Assessment Plan Free Text A P: 55 year old with PMH uncontr olled DM, peripheral neuropathy, cataracts/blindness , [place] in 2003, and tobacco abuse presented with f or foot ulcers and PAD AFVSS b/l foot ulcers worse on lef t side but pain and claudication worse on the right side. labs an imaging reviewed plan: will discuss with attending plans for artogram n ext week continue medical managment podiatry and infectious disease onboard. Gilbert Ventura 07/14/20 0959: Diagnosis, Assessment Plan Free Text A P: patient seen and examined. Agree with above. int ervention planned. appreciate consult. at 2013 RPT #:[id number] END OF REPORT 2020-07-01 19:59:00-00:00 [facility]) Vascular Surgery Consult Note REPORT#:[id number] REPORT STATUS: Signed DATE:07/01/20 TIME: 1958 PATIENT: HARJINDER COLUNGA UNIT #: [id number] ROOM/BED: [address] : [birth year] AGE: 55 SEX: M ATTEND: Arpit Laureano ADM AUTHOR: Eliot Vale MD R1 * ALL edits or amendments must be made on the [employer]/computer document * Eliot Vale 07/01/201958: History of Present Illness Requesting Clinician: Mazin Sr MD Reason for consult: PAD , nonhealing ulcers Chief complaint: nonhealing ulcers, LLE claudication HPI: 55 year old with PMH uncontr olled DM, peripheral neuropathy, cataracts/blindness , [place] in 2003, and tobacco ab use presented with for foot ulcers. Patient reports h/o claudication mostly on the right foot. Us sh owed Increased differential peak systolic velocity for the right common femo ral and proximal superficial femoral arteries with monophasic wavefor ms distal to the common femoral artery indicative of significant stenosis between these arteries. Left infrapopliteal artery monophasic waveforms consistent with significant arterial disease distal to t he popliteal artery. Bilateral RADAMES values compatible with moderate arterial disease. Vasacular surgery consutled for evaluation. History - Adult longitudinal Past medical history: Reports: Diabetes mellitus (BS 168 MG/DL LAST PM ). Additional medical history: MO in 2003 Additional surgical history: None Drug use: Denies recreational drugs Smoking status: Smoking status for patients 13 years old or old er: Current every day smoker Date last smoked: 06/28/20 Packs per day: 1 Years smoked: 40 Pack years: 40 Other social history: Hx of substance and alcoho l abuse Allergies: Coded Allergies: No Known Allergies (10/08/19) Review of Systems Constitutional: Denies: chills, fatigue, fever. Skin: Reports: abrasion, laceration. Denies: bruising, contusion, ecchymosis. Allergy/Immun: Denies: anaphylaxis, hives. Eyes: Denies: redness, discharge, itching. ENT: Denies: earache, mouth pain, nasal congestion, n ose bleeding. Respiratory: Denies: non productive cough , parox nocturnal dyspnea, pleurisy, pleuritic pain, pneumonia, productive cough (sputum), SOB, wheez ing. Cardiovascular: Denies: chest pain, edema, orthopnea, palpitatio ns. GI: Denies: abdominal pain, anorexia, constipation, diarrhea, GERD, hematemesis. : Denies: dysuria, flank pain, frequency. Musculoskeletal: Reports: extremity pain. Denies: arthritis, extr emity swelling, joint pain, joint swelling. Heme: Denies: adenopathy, bleeding, bruising. Endocrine: Denies: cold intolerance, heat intolerance, poly dipsia. Neuro: Denies: bowel dysfunction, confusion, dizziness, focal weakness. Psych: Denies: agitation, anxiety. Objective VS/I O: Last Documented: Result Date Time Pulse Ox 99 07/01 1916 B/P 118/75 07/01 1916 B/P Mean 89.1 07/01 1916 Temp 36.7 07/01 1916 Pulse 77 07/01 1916 Resp 16 07/01 1916 O2 Delivery Room air 06/28 1458 24 hour I O ending at 0700: 07/01 0700 06/30 1900 Intake Total 940 Output Total 504 Balance 436 Intake, Oral 940 Number Voids 4 Output, Urine 504 PATIENT WEIGHT: Weight (lb): 180 Weight (oz): 6.04 Weight (kg): 81.818 General appearance: alert, awake, oriented HEENT: anicteric, mucosal membranes moist Neck: full range of motion, non-tender Cardiovascular: normal heart sounds, regular rat e rhythm Respiratory: aerating well, clear to auscultatio n Abdomen: soft, non-tender, normal bowel sounds Genitourinary: no bladder distention, no flank p ain Extremities: abnormal temperature, moves all, no rmal Pulse assess: Vascular pulse assess: Doppler study +: R femoral, L femoral, R poplit eal, L popliteal, L posterior tibialis, R dorsalis pedis, L dorsalis pedis. Do ppler study -: R posterior tibialis. 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 Left infrapopliteal artery monophasic waveforms consistent with significant arterial disease distal to the popli teal artery. Bilateral RADAMES values compatible with moderate ar terial disease Diagnosis, Assessment Plan Free Text A P: 55 year old with PMH uncontr olled DM, peripheral neuropathy, cataracts/blindness , [place] in 2003, and tobacco abuse presented with f or foot ulcers and PAD AFVSS b/l foot ulcers worse on lef t side but pain and claudication worse on the right side. labs an imaging reviewed plan: will discuss with attending plans for artogram n ext week continue medical managment podiatry and infectious disease onboard. Gilbert Ventura 07/14/20 0959: Diagnosis, Assessment Plan Free Text A P: patient seen and examined. Agree with above. int ervention planned. appreciate consult. at 2014 at [facility] RPT #:[id number] END OF REPORT 2020-07-01 17:50:00-00:00 [facility] Progress Note REPORT#:[id number] REPORT STATUS: Signed DATE:07/01/20 TIME: 1749 PATIENT: HARJINDER COLUNGA UNIT #: [id number] ROOM/BED: [address] : 69 AGE: 55 SEX: M ATTEND: Arpit Laureano ADM AUTHOR: Nathanael Laureano ta * ALL edits or amendments must be made on the [employer]/computer document * Subjective Chief Complaint: Pain over the bilateral foot Nausea Patient reports: Yes: pain. Comments: Allergies Allergy Severity Reaction Updated Coded No Known Allergies 10/08/19 Laboratory Tests: 07/01 07/01 06/30 1158 0755 1941 Chemistry POC Glucose (74 - 106 MG/DL) 152 H 98 110 H Recent Impressions: [facility] IM[facility]ING - MRI LOW EXT W/O CON T RT 06/29 829 Report Impression - Status: SIGNED Entered: 06/29/2020 1020 IMPRESSION: No osteomyelitis. No drainable fluid collection. Mild peroneus longus tenosynovitis. Impression By: Alex Bai MD MAGNETIC RESONANCE IMAGING - MRI LOW EXT W/O CON T LT 06/29 829 Report Impression - Status: SIGNED Entered: 06/29/2020 1120 IMPRESSION: No osteomyelitis. No drainable fluid collection. Mild peroneus longus tenosynovitis. 0.5 x 0.5 x 1.5 cm ganglion versus varix situate d at the plantar aspect of the 3rd metatarsal shaft within the in trinsic foot musculature. Impression By: Alex Bai MD ULTRASOUND - DUP LE ART PETER 06/30 1730 Report Impression - Status: SIGNED Entered: 06/30/2020 181 IMPRESSION: Increased differential peak systolic velocity fo r the right common femoral and proximal superficial femoral arterie s with monophasic waveforms distal to the common femoral artery in dicative of significant stenosis between these arteries. Left infrapopliteal artery monophasic waveforms consistent with significant arterial disease distal to the popli teal artery. Bilateral RADAMES values compatible with moderate ar terial disease. Impression By: [email or web address] Guero Wen MD ULTRASOUND - DOP ART 1-2 LEVELS PETER 06/30 1730 Report Impression - Status: SIGNED Entered: 06/30/2020 1810 IMPRESSION: Increased differential peak systolic velocity fo r the right common femoral and proximal superficial femoral arterie s with monophasic waveforms distal to the common femoral artery in dicative of significant stenosis between these arteries. Left infrapopliteal artery monophasic waveforms consistent with significant arterial disease distal to the popli teal artery. Bilateral RADAMES values compatible with moderate ar terial disease. Impression By: MerRHNeo Wen MD Vital Signs: Date Time Temp Pulse Resp B/P B/P Pulse O2 O2 F low FiO2 Mean Ox Delivery Rate 07/01 1105 98.1 91 18 119/76 90.6 100 07/01 0831 97.3 76 16 107/70 82.7 98 07/01 0400 98.1 68 16 109/72 84.0 96 06/30 2244 98.1 75 16 110/72 84.6 95 06/30 1943 97.7 84 16 127/81 96.5 98 Current Medications Sig/Bita Start time Last Medication Dose Route Stop Time Status Admin Cephalexin 500 MG Q6HR 07/01 1200 AC 07/01 PO 07/06 1159 1408 Losartan Potassium 50 MG DAILY 06/29 0900 AC PO 07/29 09 0901 Nicotine 14 MG DAILY 06/29 0900 AC 07/01 TRANSDERM 07/29 0901 0902 Insulin Human Lispro 5 UNITS AC 06/29 0730 AC 0 07/01 SUBQ 07/29 0731 1410 Insulin Glargine 15 UNITS BEDTIME 06/28 2100 AC 06/30 SUBQ 07/28 Linezolid 600 MG Q12HR 06/28 2100 DC 07/01 PO 07/12 2058 0901 Cefepime HCl 1 GM Q8H 06/28 2030 DC 07/01 Sterile Water 10 ML IV 07/12 2028 0414 Clonidine HCl 0.1 MG Q6H PRN PRN 06/28 2014 AC 06/29 PO 07/29 2015 1747 Enoxaparin Sodium 40 MG Q24H 06/28 2014 AC 06/19 2 SUBQ 07/28 Dextrose/Water 25 ML ASDIR PRN 06/28 1914 AC IV 07/29 1915 Glucagon 1 MG ASDIR PRN 06/28 1914 AC IM 07/29 1915 Insulin Human Lispro See Dose ASDIR 06/28 1914 AC 06/30 Insts (1) SUBQ 07/29 1915 184 Dose Instructions: (1)Insulin Human Lispro: LOW DOSE SCALE Objective General VS/I O: 24 hour I O ending at 0700: 07/01 0700 06/30 1900 Intake Total 940 Output Total 504 Balance 436 Intake, Oral 940 Number Voids 4 Output, Urine 504 Vital Signs: Date Time Temp Pulse Resp B/P B/P Pulse O2 O2 F low FiO2 Mean Ox Delivery Rate 07/01 1105 98.1 91 18 119/76 90.6 100 07/01 0831 97.3 76 16 107/70 82.7 98 07/01 0400 98.1 68 16 109/72 84.0 96 06/30 2244 98.1 75 16 110/72 84.6 95 06/30 1943 97.7 84 16 127/81 96.5 98 PATIENT WEIGHT: Weight (lb): 180 Weight (oz): 6.04 Weight (kg): 81.818 Physical Exam General appearance: alert, awake HEENT: atraumatic, EOMI Neck: non-tender, no JVD Cardiovascular: normal S1/S2 Respiratory: clear to auscultation Abdomen: non-tender, soft Extremities: no edema Diagnosis, Assessment Plan Free Text A P: 1. Bilateral foot wound secondary diabetes with peripheral neuropathy 2. Diabetes poorly controlled 3. Cellulitis of bilateral foot 4. Peripheral vascular disease Wound care Vascular input Monitor blood sugars closely Discussed with the staff regarding plan of care Pain control at 2023 RPT #:[id number] END OF REPORT 2020-07-01 11:04:00-00:00 [facility]) Infectious Dis. Progress Note REPORT#:[id number] REPORT STATUS: Signed DATE:07/01/20 TIME: 1103 PATIENT: HARJINDER COLUNGA UNIT #: [id number] ROOM[facility]BED: [facility] : 69 AGE: 55 SEX: M ATTEND: Arpit Laureano ADM AUTHOR: Anam Velez MD * ALL edits or amendments must be made on the [employer]computer document * Subjective Chief Complaint: 06-30-2020 FEELS FINE PODIATRY NOTED CX + STREPTOCOCCI 07-01-2020 HAD BED SIDE DEBRIDMENT DONE CX NOTED WOUNDS NOTED EDEUCATED ABOUT FOOT CARE ABD FOOT WEAR Objective General VS/I O: Microbiology: 06/28 185 FOOT: Wound Culture - COMP BETA-HEMOLYTIC STREP GROUP B 06/28 185 FOOT: Gram Stain - COMP 06/28 1528 BLOOD: Blood Culture - RES 06/28 152 BLOOD: Blood Culture - RES Current Medications Sig/Bita Start time Last Medication Dose Route Stop Time Status Admin Losartan Potassium 50 MG DAILY 06/29 899 AC PO 07/29 900 09 Nicotine 14 MG DAILY 06/29 09 AC 07/01 TRANSDERM 07/29 900 09 Insulin Human Lispro 5 UNITS AC 06/29 0730 AC 0 06/30 SUBQ 07/29 0631 184 Insulin Glargine 15 UNITS BEDTIME 06/28 2099 AC 06/30 SUBQ 07/28 Linezolid 600 MG Q12HR 06/28 2099 AC 07/01 PO 07/12 2058 09 Cefepime HCl 1 GM Q8H 06/28 2029 AC 07/01 Sterile Water 10 ML IV 07/12 2028 0414 Clonidine HCl 0.1 MG Q6H PRN PRN 06/28 2014 AC 06/29 PO 07/28 2016 1747 Enoxaparin Sodium 40 MG Q24H 06/28 2014 AC 06/19 2 SUBQ 07/28 Dextrose/Water 25 ML ASDIR PRN 06/28 191 AC IV 07/28 191 Glucagon 1 MG ASDIR PRN 06/28 191 AC IM 07/28 191 Insulin Human Lispro See Dose ASDIR 06/28 1914 AC 06/30 Insts (1) SUBQ 07/28 191 1842 Dose Instructions: (1)Insulin Human Lispro: LOW DOSE SCALE Recent Impressions-Last 72 Hrs RADIOLOGY - XR CHEST 1 V 06/28 1530 Report Impression - Status: SIGNED Entered: 06/28/2020 1539 IMPRESSION: No acute abnormality identified. Impression By: Randolph - Richard Linda M.D. RADIOLOGY - XR FOOT 3 + V LT 06/28 1648 Report Impression - Status: SIGNED Entered: 06/28/2020 1703 IMPRESSION: No radiographic evidence of osteomyelitis. If in dicated, a bone scan or MRI are more sensitive for the detection of o steomyelitis. Impression By: Alex Bai MD MAGNETIC RESONANCE IMAGING - MRI LOW EXT W/O CON T RT 06/29 0830 Report Impression - Status: SIGNED Entered: 06/29/2020 1020 IMPRESSION: No osteomyelitis. No drainable fluid collection. Mild peroneus longus tenosynovitis. Impression By: Alex Bai MD MAGNET[facility] RESON[facility] IMAGING - MRI LOW EXT W/O CON T LT 06/29 0830 Report Impression - Status: SIGNED Entered: 06/29/2020 1120 IMPRESSION: No osteomyelitis. No drainable fluid collection. Mild peroneus longus tenosynovitis. 0.5 x 0.5 x 1.5 cm ganglion versus varix situate d at the plantar aspect of the 3rd metatarsal shaft within the in trinsic foot musculature. Impression By: Alex Bai MD ULTRASOUND - DUP LE ART PETER 06/30 1730 Report Impression - Status: SIGNED Entered: 06/30/2020 1810 IMPRESSION: Increased differential peak systolic velocity fo r the right common femoral and proximal superficial femoral arterie s with monophasic waveforms distal to the common femoral artery in dicative of significant stenosis between these arteries. Left infrapopliteal artery monophasic waveforms consistent with significant arterial disease distal to the popli teal artery. Bilateral RADAMES values compatible with moderate ar terial disease. Impression By: Alejandrina Wen MD ULTRASOUND - DOP ART 1-2 LEVELS PETER 06/30 1730 Report Impression - Status: SIGNED Entered: 06/30/2020 1810 IMPRESSION: Increased differential peak systolic velocity fo r the right common femoral and proximal superficial femoral arterie s with monophasic waveforms distal to the common femoral artery in dicative of significant stenosis between these arteries. Left infrapopliteal artery monophasic waveforms consistent with significant arterial disease distal to the popli teal artery. Bilateral RADAMES values compatible with moderate ar terial disease. Impression By: Alejandrina Wen MD Last Documented: Result Date Time Pulse Ox 100 07/01 1105 B/P 119/76 07/01 1105 B/P Mean 90.6 07/01 1105 Temp 36.7 07/01 1105 Pulse 91 07/01 1105 Resp 18 07/01 1105 O2 Delivery Room air 06/28 1458 Vital Signs Date Temp Pulse Resp B/P B/P Mean Pulse Ox FiO2 06/30-07/01 36.3-36.9 68-91 16-18 107-127/70-81 0.0-96.5 95-100 24 hour I O ending at 0700: 07/01 0700 06/30 1900 Intake Total 940 Output Total 504 Balance 436 Intake, Oral 940 Number Voids 4 Output, Urine 504 PATIENT WEIGHT: Weight (lb): 180 Weight (oz): 6.04 Weight (kg): 81.818 Physical Exam General appearance: alert, awake, oriented, no a cute distress, pleasant, conversational, mental status normal, no respira tory distress ENT: moist mucosal membranes Cardiovascular: normal heart sounds Respiratory: no distress Abdomen: no guarding Extremities: Bilateral feet wrapped with betadin e wet-to-dry bandages which appear clean and intact. Ten derness BL ankle. No erythema or edema noted to the BL leg above the ankle. Treatment Prophylaxis Treatment Prophylaxis CVC/PICC documentation: The data below has been imported from nursing do cumentation. Any exceptions have been noted below under Provider comments. CVC/PICC insertion date/time: Provider comments on imported nursing data: [] Diagnosis, Assessment Plan Problem List/A P: 1. Diabetic foot ulcer associated with diabetes mellitus due to underlying condition 2. Lesion of soft tissue of lower leg and ankle 3. Group B streptococcal infection 4. Neuropathy 5. Infected open wound Free Text A P: ASSESSMENT 55yoWM w/ PMH uncontrolled D M, peripheral neuropathy, cataracts/blindness, MO in 2003, and tobacco abuse presented for bleeding L foot ulcers. -T2DM, uncontrolled, A1c 11.8 -Peripheral neuropathy -Diabetic foot ulcers 2/2 above, BL -Cellulitis, BL foot PLAN Pt w/ bilateral diabetic rebecac t ulcers 2/2 uncontrolled diabetes (eAG nearly 300). Wound Gram stain w/ GNR and GPC in pairs, Cx NGT D. Due to the uncontrolled diabetes, Pseudomonal covera ge is advisable. Accordingly Abx changed from Unasyn to Zyvox/cefepime. At this time the cell ulitis does not appear to extend above either ankle. No fever/leukocytosis and BCx NGTD. Continue to monitor closely. BL foot MRI pending to r/o o steomyelitis, which will guide duration of therapy. Podiatry onboard and providing recommendations. Discussed disease process and importance of achi eving superior blood sugar control with patient who verbalized ellain g. 06-30-2020 WILL RE EVAL WOUNDS HOME SOON CHECK FINAL CX 07-01-2020 WOUND INFCTION , NOT DEEP >> PO ABX X 2 WEEKS GROUP B STREP KEFLEX X 2 WEEKS Electronically Signed by Anam Velez MD on 0 07/01/20 at 1107 RPT #:[id number] END OF REPORT 2020-07-01 09:46:00-00:00 [facility] Podiatry Progress Note REPORT#:[id number] REPORT STATUS: Signed DATE:07/01/20 TIME: 945 PATIENT: HARJINDER COLUNGA UNIT #: [id number] ROOM/BED: [address] : [birth year] AGE: 55 SEX: M ATTEND: Arpit Laureano [facility] AUTHOR: Mazin Sr DPM R2 * ALL edits or amendments must be made on the [employer]/computer document * General VS/I O: Last Documented: Result Date Time Pulse Ox 98 07/01 830 B/P 107/70 07/01 830 B/P Mean 82.7 07/01 830 Temp 36.3 07/01 830 Pulse 76 07/01 830 Resp 16 07/01 830 O2 Delivery Room air 06/28 1458 24 hour I O ending at 0700: 07/01 0700 06/30 1900 Intake Total 940 Output Total 504 Balance 436 Intake, Oral 940 Number Voids 4 Output, Urine 504 PATIENT WEIGHT: Weight (lb): 180 Weight (oz): 6.04 Weight (kg): 81.818 Subjective Chief complaint: peter DM ft wounds w/ cellulitis HPI: pt has no complaints at this time Review of Systems Constitutional: Denies: chills, fatigue, fever. Respiratory: Denies: ROSE (dyspnea on exertion), SOB. Cardiovascular: Denies: chest pain. GI: Denies: abdominal pain, nausea. Objective General Medications: Active Meds + DC'd Last 24 Hrs Losartan Potassium 50 MG DAILY PO Nicotine 14 MG DAILY TRANSDERM Insulin Human Lispro 5 UNITS AC SUBQ Insulin Glargine 15 UNITS BEDTIME SUBQ Linezolid 600 MG Q12HR PO Cefepime HCl 1 GM Q8H IV Sterile Water 10 ML Clonidine HCl 0.1 MG Q6H PRN PRN PO Enoxaparin Sodium 40 MG Q24H SUBQ Dextrose/Water 25 ML ASDIR PRN IV Glucagon 1 MG ASDIR PRN IM Insulin Human Lispro LOW DOSE SCALE ASDIR SUBQ Physical Exam General appearance: alert, awake, oriented, no a cute distress, pleasant, conversational, mental status normal, no respira tory distress Wound/incision: Location: FOCUSED LOWER EXTREMITY PODIATRIC EXAMINATION: VASCULAR: Pulses nonpalpable, DP and PT bilatera lly. Cap refill within normal limits. Hair absent at digits bilaterally. DERMATOLOGIC: Ulceration on distal aspect of lef t hallux with granular base, approximately 1.5 cm x 2 cm erythema has resolve d. On the plantar aspect of left foot, superficial wound with size measur ing approximately 5 x 5 cm with base being mix of fibrotic, granular, and eschar tissue with rolled edges on periwound. No significant drainage is noted. No foul odor. No significant edema on right lower extremity. The fourth digit is swollen and turning violaceous with nail being disfigured an d wounded, also superficial wound on the plantar aspect of first metatarsal head on the right foot with breakdown of skin. No erythema extending proxima lly on the right foot. NEUROLOGIC: Complete loss of protective sensatio n and loss of light touch, insensate to pain. ORTHO: The patient has somewhat contracted digit s 2 through 5 bilaterally, hallux abductovalgus bilaterally. Normal strengt h and range of motion, otherwise. Diagnosis, Assessment Plan Free Text A P: DIAGNOSES: Harjinder Colunga is a 55-year-old male. 1. Bilateral foot wounds secondary to diabetes w ith peripheral neuropathy. 2. Uncontrolled diabetes. 3. cellulitis PLAN: The patient will be admitted for infectiou s disease to direct antibiotics. Note that a wound culture g rew Beta-hemolytic strep. MRI reviewed and no signs of osteomyelitis or abcess is prese nt. ESR 85, CRP 51.3. ABIs report monphasic waveforms d istal to [facility] [employer], stenosis on RIGHT and similar results on left below popliteal. vascular consul yana. WOund debridement performed to beefy red bleeding tissue. Dressed with aq uacell and DSD. Procedure 07/01/20 Pre-op dx: peter foot diabetic wounds Post op dx: same Procedure: wound debridement of peter feet location: bedside Surgeon: Dr. Marito Ray [employer] Specialist: Dr. Mazin Sr Complications: none EBL: < 5 cc Implants: none Finding: non viable, fibrtoic, eschar tissue to the sub cutaneous tissue, but not to extend to the layers of fascia, tendon, o r bone Status: stable Procedure Detail: Right foot After consent was obtained, time out performed, attention was directed to the right foot wear a #15 blade was used to remove superficial eschar and non viable skin to the depth of the dermis. Post op right foot wound demensions a the 1st MTPJ plantarly measured 1) p lantar 1 X 1.5 cm X .1 cm and 2) medial 1 cm X 1 cm X 0.1 cm. Left foot Debridement of wound origial ly measuing 5 cm X 5 X .1 cm was performed with #15 blade to remove all non viable, fibrotic, and es jorge from wound down to sub cutaneous tissue which was b eefy read and bleeding. Post debridement wound was 5 X 5 X 0.4 cm site was dressed with xeroform on right and aqua cell on left and DSD peter. discussed with attending at 1008 RPT #:[id number] END OF REPORT 2020-07-01 09:46:00-00:00 [facility] ([facility]) Podiatry Progress Note REPORT#:[id number] REPORT STATUS: Signed DATE:07/01/20 TIME: 945 PATIENT: HARJINDER COLUNGA UNIT #: [id number] [address] AGE: 55 SEX: M ATTEND: Arpit Laureano ADM AUTHOR: Mazin Sr DPM R2 * ALL edits or amendments must be made on the [employer]/computer document * General VS/I O: Last Documented: Result Date Time Pulse Ox 98 07/01 830 B/P 107/70 07/01 830 B/P Mean 82.7 07/01 830 Temp 36.3 07/01 0831 Pulse 76 07/01 08 Resp 16 07/01 830 O2 Delivery Room air 06/28 1458 24 hour I O ending at 0700: 07/01 0700 06/30 1900 Intake Total 940 Output Total 504 Balance 436 Intake, Oral 940 Number Voids 4 Output, Urine 504 PATIENT WEIGHT: Weight (lb): 180 Weight (oz): 6.04 Weight (kg): 81.818 Subjective Chief complaint: peter DM ft wounds w/ cellulitis HPI: pt has no complaints at this time Review of Systems Constitutional: Denies: chills, fatigue, fever. Respiratory: Denies: ROSE (dyspnea on exertion), SOB. Cardiovascular: Denies: chest pain. GI: Denies: abdominal pain, nausea. Objective General Medications: Active Meds + DC'd Last 24 Hrs Losartan Potassium 50 MG DAILY PO Nicotine 14 MG DAILY TRANSDERM Insulin Human Lispro 5 UNITS AC SUBQ Insulin Glargine 15 UNITS BEDTIME SUBQ Linezolid 600 MG Q12HR PO Cefepime HCl 1 GM Q8H IV Sterile Water 10 ML Clonidine HCl 0.1 MG Q6H PRN PRN PO Enoxaparin Sodium 40 MG Q24H SUBQ Dextrose/Water 25 ML ASDIR PRN IV Glucagon 1 MG ASDIR PRN IM Insulin Human Lispro LOW DOSE SCALE ASDIR SUBQ Physical Exam General appearance: alert, awake, oriented, no a cute distress, pleasant, conversational, mental status normal, no respira tory distress Wound/incision: Location: FOCUSED LOWER EXTREMITY PODIATRIC EXAMINATION: VASCULAR: Pulses nonpalpable, DP and PT bilatera lly. Cap refill within normal limits. Hair absent at digits bilaterally. DERMATOLOGIC: Ulceration on distal aspect of lef t hallux with granular base, approximately 1.5 cm x 2 cm erythema has resolve d. On the plantar aspect of left foot, superficial wound with size measur ing approximately 5 x 5 cm with base being mix of fibrotic, granular, and eschar tissue with rolled edges on periwound. No significant drainage is noted. No foul odor. No significant edema on right lower extremity. The fourth digit is swollen and turning violaceous with nail being disfigured an d wounded, also superficial wound on the plantar aspect of first metatarsal head on the right foot with breakdown of skin. No erythema extending proxima lly on the right foot. NEUROLOGIC: Complete loss of protective sensatio n and loss of light touch, insensate to pain. ORTHO: The patient has somewhat contracted digit s 2 through 5 bilaterally, hallux abductovalgus bilaterally. Normal strengt h and range of motion, otherwise. Diagnosis, Assessment Plan Free Text A P: DIAGNOSES: Harjinder Colunga is a 55-year-old male. 1. Bilateral foot wounds secondary to diabetes w ith peripheral neuropathy. 2. Uncontrolled diabetes. 3. cellulitis PLAN: The patient will be admitted for infectiou s disease to direct antibiotics. Note that a wound culture g rew Beta-hemolytic strep. MRI reviewed and no signs of osteomyelitis or abcess is prese nt. ESR 85, CRP 51.3. ABIs report monphasic waveforms d istal to [facility] [employer], stenosis on RIGHT and similar results on left below popliteal. vascular consul yana. WOund debridement performed to beefy red bleeding tissue. Dressed with aq uacell and DSD. Procedure 07/01/20 Pre-op dx: peter foot diabetic wounds Post op dx: same Procedure: wound debridement of peter feet location: bedside Surgeon: Dr. Marito Ray [employer] Specialist: Dr. Mazin Sr Complications: none EBL: < 5 cc Implants: none Finding: non viable, fibrtoic, eschar tissue to the sub cutaneous tissue, but not to extend to the layers of fascia, tendon, o r bone Status: stable Procedure Detail: Right foot After consent was obtained, time out performed, attention was directed to the right foot wear a #15 blade was used to remove superficial eschar and non viable skin to the depth of the dermis. Post op right foot wound demensions a the 1st MTPJ plantarly measured 1) p lantar 1 X 1.5 cm X .1 cm and 2) medial 1 cm X 1 cm X 0.1 cm. Left foot Debridement of wound origial ly measuing 5 cm X 5 X .1 cm was performed with #15 blade to remove all non viable, fibrotic, and es jorge from wound down to sub cutaneous tissue which was b eefy read and bleeding. Post debridement wound was 5 X 5 X 0.4 cm site was dressed with xeroform on right and aqua cell on left and DSD peter. discussed with attending at 1008 at 1135 RPT #:[id number] END OF REPORT 2020-06-30 22:00:00-00:00 [facility] Progress Note REPORT#:[id number] REPORT STATUS: Signed DATE:06/30/20 TIME: 2199 PATIENT: HARJINDER COLUNGA UNIT #: [id number] ROOM/BED: [address] : [birth year] AGE: 55 SEX: M ATTEND: Arpit Laureano ADM AUTHOR: Nathanael Laureano * ALL edits or amendments must be made on the [employer]/computer document * Subjective Chief Complaint: Pain over the bilateral foot Nausea Patient reports: Yes: pain. Comments: Allergies Allergy Severity Reaction Updated Coded No Known Allergies 10/08/19 Laboratory Tests 06/29/20 0845: [Embedded Image Not Available] 06/29/20 0631: [Embedded Image Not Available] Laboratory Tests: 06/30 06/30 06/30 06/30 1941 1522 1118 0724 Chemistry POC Glucose (74 - 106 MG/DL) 110 H 244 H 246 H 172 H Recent Impressions: ULTRASOUND - DUP LE ART PETER 06/30 1731 Report Impression - Status: SIGNED Entered: 06/30/2020 1810 IMPRESSION: Increased differential peak systolic velocity fo r the right common femoral and proximal superficial femoral arterie s with monophasic waveforms distal to the common femoral artery in dicative of significant stenosis between these arteries. Left infrapopliteal artery monophasic waveforms consistent with significant arterial disease distal to the popli teal artery. Bilateral RADAMES values compatible with moderate ar terial disease. Impression By: Alejandrina Wen MD ULTRASOUND - DOP ART 1-2 LEVELS PETER 06/30 1730 Report Impression - Status: SIGNED Entered: 06/30/2020 1810 IMPRESSION: Increased differential peak systolic velocity fo r the right common femoral and proximal superficial femoral arterie s with monophasic waveforms distal to the common femoral artery in dicative of significant stenosis between these arteries. Left infrapopliteal artery monophasic waveforms consistent with significant arterial disease distal to the popli teal artery. Bilateral RADAMES values compatible with moderate ar terial disease. Impression By: Alejandrina Wen MD Recent Impressions: RADIOLOGY - XR CHEST 1 V 06/28 1530 Report Impression - Status: SIGNED Entered: 06/28/2020 1539 IMPRESSION: No acute abnormality identified. Impression By: Randolph Linda M.D. RADIOLOGY - XR FOOT 3 + V LT 06/28 1648 Report Impression - Status: SIGNED Entered: 06/28/2020 1703 IMPRESSION: No radiographic evidence of osteomyelitis. If in dicated, a bone scan or MRI are more sensitive for the detection of o steomyelitis. Impression By: Alex Bai MD MAGNET[facility] RESONANCE IMAGING - MRI LOW EXT W/O CON T RT 06/29 0830 Report Impression - Status: SIGNED Entered: 06/29/2020 1020 IMPRESSION: No osteomyelitis. No drainable fluid collection. Mild peroneus longus tenosynovitis. Impression By: Alex Bai MD MAGNETIC RESONANCE IMAGING - MRI LOW EXT W/O CON T LT 06/29 0830 Report Impression - Status: SIGNED Entered: 06/29/2020 1120 IMPRESSION: No osteomyelitis. No drainable fluid collection. Mild peroneus longus tenosynovitis. 0.5 x 0.5 x 1.5 cm ganglion versus varix situate d at the plantar aspect of the 3rd metatarsal shaft within the in trinsic foot musculature. Impression By: Alex Bai MD ULTRASOUND - DUP LE ART PETER 06/30 1730 Report Impression - Status: SIGNED Entered: 06/30/2020 1810 IMPRESSION: Increased differential peak systolic velocity fo r the right common femoral and proximal superficial femoral arterie s with monophasic waveforms distal to the common femoral artery in dicative of significant stenosis between these arteries. Left infrapopliteal artery monophasic waveforms consistent with significant arterial disease distal to the popli teal artery. Bilateral RADAMES values compatible with moderate ar terial disease. Impression By: Alejandrina Wen MD ULTRASOUND - DOP ART 1-2 LEVELS PETER 06/30 1730 Report Impression - Status: SIGNED Entered: 06/30/2020 181 IMPRESSION: Increased differential peak systolic velocity fo r the right common femoral and proximal superficial femoral arterie s with monophasic waveforms distal to the common femoral artery in dicative of significant stenosis between these arteries. Left infrapopliteal artery monophasic waveforms consistent with significant arterial disease distal to the popli teal artery. Bilateral RADAMES values compatible with moderate ar terial disease. Impression By: Alejandrina Wen MD Vital Signs: Date Time Temp Pulse Resp B/P B/P Pulse O2 O2 F low FiO2 Mean Ox Delivery Rate 06/30 1943 97.7 84 16 127/81 96.5 98 06/30 1522 98.4 79 16 121/76 91.3 99 06/30 1119 98.4 78 16 123/78 0.0 98 06/30 0725 98.4 79 17 136/82 99.8 97 06/30 0427 98.4 71 16 118/72 87.3 96 06/29 2302 98.2 72 16 96/57 70.0 93 Current Medications Sig/Bita Start time Last Medication Dose Route Stop Time Status Admin Losartan Potassium 50 MG DAILY 06/29 899 AC PO 07/29 0901 1019 Nicotine 14 MG DAILY 06/29 899 AC 06/30 TRANSDERM 07/29 0901 1023 Insulin Human Lispro 5 UNITS AC 06/29 0630 AC 06/30 SUBQ 07/29 0731 184 Insulin Glargine 15 UNITS BEDTIME 06/28 2099 AC 06/30 SUBQ 07/28 Linezolid 600 MG Q12HR 06/28 2099 AC 06/30 PO 07/12 Cefepime HCl 1 GM Q8H 06/28 2029 AC 06/30 Sterile Water 10 ML IV 07/12 Clonidine HCl 0.1 MG Q6H PRN PRN 06/28 2014 AC 06/29 PO 07/29 2015 174 Enoxaparin Sodium 40 MG Q24H 06/28 2014 AC SUBQ 07/28 Dextrose/Water 25 ML ASDIR PRN 06/28 1914 AC IV 07/29 1915 Glucagon 1 MG ASDIR PRN 06/28 1914 AC IM 07/29 1915 Insulin Human Lispro See Dose ASDIR 06/28 1914 AC 06/30 Insts (1) SUBQ 07/28 191 1842 Dose Instructions: (1)Insulin Human Lispro: LOW DOSE SCALE Objective General VS/I O: 24 hour I O ending at 0700: 06/30 0700 06/29 1900 Intake Total 740 Output Total 403 Balance 337 Intake, Oral 740 Output, Urine 403 Vital Signs: Date Time Temp Pulse Resp B/P B/P Pulse O2 O2 F low FiO2 Mean Ox Delivery Rate 06/30 194 97.7 84 16 127/81 96.5 98 06/30 1522 98.4 79 16 121/76 91.3 99 06/30 1119 98.4 78 16 123/78 0.0 98 06/30 0725 98.4 79 17 136/82 99.8 97 06/30 0427 98.4 71 16 118/72 87.3 96 06/29 2302 98.2 72 16 96/57 70.0 93 PATIENT WEIGHT: Weight (lb): 180 Weight (oz): 6.04 Weight (kg): 81.818 Physical Exam General appearance: alert, awake HEENT: atraumatic, EOMI Neck: non-tender, no JVD Cardiovascular: normal S1/S2 Respiratory: clear to auscultation Abdomen: non-tender, soft Extremities: no edema Diagnosis, Assessment Plan Free Text A P: 1. Bilateral foot wound secondary diabetes with peripheral neuropathy 2. Diabetes poorly controlled 3. Cellulitis of bilateral foot 4. Peripheral vascular disease Wound care Vascular input Monitor blood sugars closely Discussed with the staff regarding plan of care Pain control at 1504 RPT #:[id number] END OF REPORT 2020-06-30 18:01:00-00:00 [facility] ([facility]) Infectious Dis. Progress Note REPORT#:[id number] REPORT STATUS: Signed DATE:06/30/20 TIME: 1800 PATIENT: HARJINDER COLUNGA UNIT #: [id number] ROOM/BED: [address] : 69 AGE: 55 SEX: M ATTEND: Arpit Laureano ADM AUTHOR: Anam Velez MD * ALL edits or amendments must be made on the [employer]/computer document * Subjective Chief Complaint: 06-30-2020 FEELS FINE PODIATRY NOTED CX + STREPTOCOCCI Objective General VS/I O: Laboratory Tests 06/29/20 0845: [Embedded Image Not Available] 06/29/20 0631: [Embedded Image Not Available] Microbiology: 06/28 185 FOOT: Wound Culture - RES BETA-HEMOLYTIC STREP GROUP B 06/28 185 FOOT: Gram Stain - RES 06/28 1528 BLOOD: Blood Culture - RES 06/28 1527 BLOOD: Blood Culture - RES Current Medications Sig/Bita Start time Last Medication Dose Route Stop Time Status Admin Losartan Potassium 50 MG DAILY 06/29 899 AC PO 07/29 900 1019 Nicotine 14 MG DAILY 06/29 09 AC 06/30 TRANSDERM 07/29 0901 1023 Insulin Human Lispro 5 UNITS AC 06/29 0730 AC 0 06/30 SUBQ 07/29 0731 1320 Insulin Glargine 15 UNITS BEDTIME 06/28 2100 AC 06/29 SUBQ 07/28 2101 2106 Linezolid 600 MG Q12HR 06/28 2100 AC 06/30 PO 07/12 205 1019 Cefepime HCl 1 GM Q8H 06/28 2029 AC 06/30 Sterile Water 10 ML IV 07/12 2028 1321 Clonidine HCl 0.1 MG Q6H PRN PRN 06/28 2014 AC 06/29 PO 07/29 2015 1747 Enoxaparin Sodium 40 MG Q24H 06/28 2014 AC 06/19 1 SUBQ 07/28 Dextrose/Water 25 ML ASDIR PRN 06/28 1914 AC IV 07/29 1915 Glucagon 1 MG ASDIR PRN 06/28 1914 AC IM 07/29 1915 Insulin Human Lispro See Dose ASDIR 06/28 1914 AC 06/30 Insts (1) SUBQ 07/29 1915 1320 Dose Instructions: (1)Insulin Human Lispro: LOW DOSE SCALE Recent Impressions-Last 72 Hrs RADIOLOGY - XR CHEST 1 V 06/28 1530 Report Impression - Status: SIGNED Entered: 06/28/2020 1539 IMPRESSION: No acute abnormality identified. Impression By: Randolph Linda M.D. RADIOLOGY - XR FOOT 3 + V LT 06/28 1648 Report Impression - Status: SIGNED Entered: 06/28/2020 1703 IMPRESSION: No radiographic evidence of osteomyelitis. If in dicated, a bone scan or MRI are more sensitive for the detection of o steomyelitis. Impression By: Alex Bai MD [facility] - MRI LOW EXT W/O CON T RT 06/29 0830 Report Impression - Status: SIGNED Entered: 06/29/2020 1020 IMPRESSION: No osteomyelitis. No drainable fluid collection. Mild peroneus longus tenosynovitis. Impression By: Alex Bai MD [facility] - MRI LOW EXT W/O CON T LT 06/29 0830 Report Impression - Status: SIGNED Entered: 06/29/2020 1120 IMPRESSION: No osteomyelitis. No drainable fluid collection. Mild peroneus longus tenosynovitis. 0.5 x 0.5 x 1.5 cm ganglion versus varix situate d at the plantar aspect of the 3rd metatarsal shaft within the in trinsic foot musculature. Impression By: Alex Bai MD Last Documented: Result Date Time Pulse Ox 99 06/30 1522 B/P 121/76 06/30 1522 B/P Mean 91.3 06/30 1522 Temp 36.9 06/30 1522 Pulse 79 06/30 1522 Resp 16 06/30 1522 O2 Delivery Room air 06/28 1458 Vital Signs Date Temp Pulse Resp B/P B/P Mean Pulse Ox FiO2 06/29-06/30 36.8-36.9 71-79 16-17 96-136/57-82 0.0-99.8 91-99 24 hour I O ending at 0700: 06/30 0700 06/29 1900 Intake Total 740 Output Total 403 Balance 337 Intake, Oral 740 Output, Urine 403 PATIENT WEIGHT: Weight (lb): 180 Weight (oz): 6.04 Weight (kg): 81.818 Physical Exam General appearance: alert, awake, oriented, no a cute distress, pleasant, conversational, mental status normal, no respira tory distress ENT: moist mucosal membranes Cardiovascular: normal heart sounds Respiratory: no distress Abdomen: no guarding Extremities: Bilateral feet wrapped with betadin e wet-to-dry bandages which appear clean and intact. Ten derness BL ankle. No erythema or edema noted to the BL leg above the ankle. Diagnosis, Assessment Plan Problem List/A P: 1. Diabetic foot ulcer associated with diabetes mellitus due to underlying condition 2. Lesion of soft tissue of lower leg and ankle 3. Group B streptococcal infection 4. Neuropathy 5. Infected open wound Free Text A P: ASSESSMENT 55yoWM w/ PMH uncontrolled D M, peripheral neuropathy, cataracts/blindness, MO in 2003, and tobacco abuse presented for bleeding L foot ulcers. -T2DM, uncontrolled, A1c 11.8 -Peripheral neuropathy -Diabetic foot ulcers 2/2 above, BL -Cellulitis, BL foot PLAN Pt w/ bilateral diabetic rebecca t ulcers 2/2 uncontrolled diabetes (eAG nearly 300). Wound Gram stain w/ GNR and GPC in pairs, Cx NGT D. Due to the uncontrolled diabetes, Pseudomonal covera ge is advisable. Accordingly Abx changed from Unasyn to Zyvox/cefepime. At this time the cell ulitis does not appear to extend above either ankle. No fever/leukocytosis and BCx NGTD. Continue to monitor closely. BL foot MRI pending to r/o o steomyelitis, which will guide duration of therapy. Podiatry onboard and providing recommendations. Discussed disease process and importance of achi eving superior blood sugar control with patient who verbalized jevon g. 06-30-2020 WILL RE EVAL WOUNDS HOME SOON CHECK FINAL CX Electronically Signed by Anam Velez MD on 0 06/30/20 at 1804 RPT #:[id number] END OF REPORT 2020-06-30 08:46:00-00:00 [facility] Podiatry Progress Note REPORT#:[id number] REPORT STATUS: Signed DATE:06/30/20 TIME: 08 PATIENT: HARJINDER COLUNGA UNIT #: [id number] ROOM/BED: [address] : 67 AGE: 55 SEX: M ATTEND: Arpit Laureano ADM AUTHOR: Mazin Sr DPM R2 * ALL edits or amendments must be made on the [employer] document * General VS/I O: Last Documented: Result Date Time Pulse Ox 97 06/30 0725 B/P 136/82 06/30 0725 B/P Mean 99.8 06/30 0725 Temp 36.9 06/30 0725 Pulse 79 06/30 0725 Resp 17 06/30 0725 O2 Delivery Room air 06/28 1458 24 hour I O ending at 0700: 06/30 0700 06/29 1900 Intake Total 740 Output Total 403 Balance 337 Intake, Oral 740 Output, Urine 403 PATIENT WEIGHT: Weight (lb): 180 Weight (oz): 6.04 Weight (kg): 81.818 Subjective Chief complaint: peter DM ft wounds w/ cellulitis HPI: no complaints Review of Systems Constitutional: Denies: chills. Respiratory: Denies: SOB. Cardiovascular: Denies: chest pain. GI: Denies: abdominal pain, vomiting. Objective General Medications: Active Meds + DC'd Last 24 Hrs Losartan Potassium 50 MG DAILY PO Nicotine 14 MG DAILY TRANSDERM Insulin Human Lispro 5 UNITS AC SUBQ Insulin Glargine 15 UNITS BEDTIME SUBQ Linezolid 600 MG Q12HR PO Cefepime HCl 1 GM Q8H IV Sterile Water 10 ML Clonidine HCl 0.1 MG Q6H PRN PRN PO Enoxaparin Sodium 40 MG Q24H SUBQ Dextrose/Water 25 ML ASDIR PRN IV Glucagon 1 MG ASDIR PRN IM Insulin Human Lispro LOW DOSE SCALE ASDIR SUBQ Physical Exam General appearance: alert, awake, oriented, no a cute distress Wound/incision: Location: FOCUSED LOWER EXTREMITY PODIATRIC EXAMINATION: VASCULAR: Pulses nonpalpable, DP and PT bilatera lly. Cap refill within normal limits. Hair absent at digits bilaterally. DERMATOLOGIC: Ulceration on distal aspect of lef t hallux with granular base, approximately 1.5 cm x 2 cm erythema has resolve d. On the plantar aspect of left foot, superficial wound with size measur ing approximately 5 x 5 cm with base being mix of fibrotic, granular, and eschar tissue with rolled edges on periwound. No significant drainage is noted. No foul odor. No significant edema on right lower extremity. The fourth digit is swollen and turning violaceous with nail being disfigured an d wounded, also superficial wound on the plantar aspect of first metatarsal head on the right foot with breakdown of skin. No erythema extending proxima lly on the right foot. NEUROLOGIC: Complete loss of protective sensatio n and loss of light touch, insensate to pain. ORTHO: The patient has somewhat contracted digit s 2 through 5 bilaterally, hallux abductovalgus bilaterally. Normal strengt h and range of motion, otherwise. Diagnosis, Assessment Plan Free Text A P: DIAGNOSES: Harjinder Colunga is a 55-year-old male. 1. Bilateral foot wounds secondary to diabetes w ith peripheral neuropathy. 2. Uncontrolled diabetes. 3. cellulitis PLAN: The patient will be admitted for infectiou s disease to direct antibiotics. Note that a wound culture w as taken and pending. MRI reviewed and no signs of osteomyelitis or abcess is present. ESR 85, CRP 51.3. ABIs pending. If necessary, wascular will be consulted. At this p oint, with wounds being superfial and cellulitis resolving well, surgery will not be pursued at this time. continue with conservative treatment with Betadi ne wet-to-dry. discussed with attending at 0853 at 1133 [facility] #:[id number] END OF REPORT 2020-06-30 08:46:00-00:00 [facility] Podiatry Progress Note REPORT#:[id number] REPORT STATUS: Signed DATE:06/30/20 TIME: 08 PATIENT: HARJINDER COLUNGA #: [id number] ROOM/BED: [address] : 67 AGE: 55 SEX: M ATTEND: Arpit Laureano ADM AUTHOR: Mazin Sr DPM R2 * ALL edits or amendments must be made on the el [employer]/computer document * General VS/I O: Last Documented: Result Date Time Pulse Ox 97 06/30 724 B/P 136/82 06/30 724 B/P Mean 99.8 06/30 724 Temp 36.9 06/30 724 Pulse 79 06/30 07 Resp 17 06/30 724 O2 Delivery Room air 06/28 1458 24 hour I O ending at 0700: 06/30 0700 06/29 1900 Intake Total 740 Output Total 403 Balance 337 Intake, Oral 740 Output, Urine 403 PATIENT WEIGHT: Weight (lb): 180 Weight (oz): 6.04 Weight (kg): 81.818 Subjective Chief complaint: peter DM ft wounds w/ cellulitis HPI: no complaints Review of Systems Constitutional: Denies: chills. Respiratory: Denies: SOB. Cardiovascular: Denies: chest pain. GI: Denies: abdominal pain, vomiting. Objective General Medications: Active Meds + DC'd Last 24 Hrs Losartan Potassium 50 MG DAILY PO Nicotine 14 MG DAILY TRANSDERM Insulin Human Lispro 5 UNITS AC SUBQ Insulin Glargine 15 UNITS BEDTIME SUBQ Linezolid 600 MG Q12HR PO Cefepime HCl 1 GM Q8H IV Sterile Water 10 ML Clonidine HCl 0.1 MG Q6H PRN PRN PO Enoxaparin Sodium 40 MG Q24H SUBQ Dextrose/Water 25 ML ASDIR PRN IV Glucagon 1 MG ASDIR PRN IM Insulin Human Lispro LOW DOSE SCALE ASDIR SUBQ Physical Exam General appearance: alert, awake, oriented, no a cute distress Wound/incision: Location: FOCUSED LOWER EXTREMITY PODIATRIC EXAMINATION: VASCULAR: Pulses nonpalpable, DP and PT bilatera lly. Cap refill within normal limits. Hair absent at digits bilaterally. DERMATOLOGIC: Ulceration on distal aspect of lef t hallux with granular base, approximately 1.5 cm x 2 cm erythema has resolve d. On the plantar aspect of left foot, superficial wound with size measur ing approximately 5 x 5 cm with base being mix of fibrotic, granular, and eschar tissue with rolled edges on periwound. No significant drainage is noted. No foul odor. No significant edema on right lower extremity. The fourth digit is swollen and turning violaceous with nail being disfigured an d wounded, also superficial wound on the plantar aspect of first metatarsal head on the right foot with breakdown of skin. No erythema extending proxima lly on the right foot. NEUROLOGIC: Complete loss of protective sensatio n and loss of light touch, insensate to pain. ORTHO: The patient has somewhat contracted digit s 2 through 5 bilaterally, hallux abductovalgus bilaterally. Normal strengt h and range of motion, otherwise. Diagnosis, Assessment Plan Free Text A P: DIAGNOSES: Harjinder Colunga is a 55-year-old male. 1. Bilateral foot wounds secondary to diabetes w ith peripheral neuropathy. 2. Uncontrolled diabetes. 3. cellulitis PLAN: The patient will be admitted for infectiou s disease to direct antibiotics. Note that a wound culture w as taken and pending. MRI reviewed and no signs of osteomyelitis or abcess is present. ESR 85, CRP 51.3. ABIs pending. If necessary, wascular will be consulted. At this p oint, with wounds being superfial and cellulitis resolving well, surgery will not be pursued at this time. continue with conservative treatment with Betadi ne wet-to-dry. discussed with attending at 0853 RPT #:[id number] END OF REPORT 2020-06-29 23:21:00-00:00 [facility] Progress Note REPORT#:[id number] REPORT STATUS: Signed DATE:06/29/20 TIME: 2320 PATIENT: HARJINDER COLUNGA UNIT #: [id number] ROOM/BED: [address] : 69 AGE: 55 SEX: M ATTEND: Arpit Laureano AUTHOR: Nathanael Laureano * ALL edits or amendments must be made on the el [employer]/computer document * Subjective Chief Complaint: Pain over the bilateral foot Nausea Patient reports: Yes: pain. Comments: Allergies Allergy Severity Reaction Updated Coded No Known Allergies 10/08/19 Laboratory Tests 06/29/20 0845: [Embedded Image Not Available] 06/29/20 0631: [Embedded Image Not Available] 06/28/20 1527: [Embedded Image Not Available] Laboratory Tests: 06/29 06/29 06/29 06/29 06/29 1946 1517 1142 0845 0728 Chemistry Sodium (137 - 145 mmol/L) 134 L Potassium (3.4 - 5.0 mmol/L) 5.0 Chloride (98 - 107 mmol/L) 96 L Carbon Dioxide (22 - 30 mmol/L) 32 H BUN (9 - 20 mg/dL) 12 Creatinine (0.7 - 1.3 mg/dL) 0.7 Glomerular Filtr Rate (>60) 125 Glucose (74 - 106 mg/dL) 202 H POC Glucose (74 - 106 MG/DL) 118 H 249 H 285 H 184 H Calcium (8.4 - 10.2 mg/dL) 9.1 Total Bilirubin (0.2 - 1.3 mg/dL) 0.7 Conjugated Bilirubin (0 - 0.3 mg/dL) 0 Unconjugated Bilirubin (0 - 1.1 mg/dL) 0.5 AST (15 - 46 U/L) 22 ALT (0 - 34 U/L) 12 Total Alk Phosphatase (38 - 126 U/L) 105 Total Protein (6.3 - 8.2 g/dL) 7.8 Albumin (3.5 - 5.0 g/dL) 3.9 06/29 06/29 0631 0413 Chemistry Hemoglobin A1c (0 - 5.9 %) 11.8 H C-Reactive Protein (0 - 9 mg/L) 51.3 H Triglycerides (mg/dL) 122 Cholesterol (mg/dL) 150 LDL Cholesterol Measurd (32 - 99 mg/dL) 104.88 H HDL Cholesterol (40 - 59 mg/dL) 26 L Coronary Risk Interp 5.77 Hematology WBC (5.0 - 12.0 x10 3/uL) 6.5 RBC (4.70 - 6.10 x10 6/uL) 4.51 L Hgb (14.0 - 18.0 g/dL) 13.2 L Hct (37.0 - 49.0 %) 39.0 MCV (80 - 94 fL) 87 MCH (27 - 31 pg) 29.3 MCHC (33 - 37 g/dL) 33.8 RDW (11.5 - 15.5 %) 12.1 Plt Count (130 - 400 x10 3/uL) 421 H MPV (9.4 - 16.4 fL) 9.4 Neut % (Auto) (43 - 65 %) 65.9 H Lymph % (Auto) (20.5 - 45.5 %) 24.1 [place] % (Auto) (5.5 - 11.7 %) 7.7 Eos % (Auto) (0.9 - 2.9 %) 1.5 Baso % (Auto) (0.2 - 1.0 %) 0.5 Neut # (Auto) (2.2 - 4.8 x10 3/uL) 4.30 Lymph # (Auto) (1.3 - 2.9 x10 3/uL) 1.57 [place] # (Auto) (0.3 - 0.8 x10 3/uL) 0.50 Eos # (Auto) (0.0 - 0.2 x10 3/uL) 0.10 Baso # (Auto) (0.0 - 0.1 x10 3/uL) 0.03 Immature Gran % (0.0 - 2.0 %) 0.3 Nucleated RBC % (0 - 1.0 %) 0.0 ESR Westergren (0 - 20 mm/hr) 85 H Recent Impressions: [facility] - MRI LOW EXT W/O CON T RT 06/29 829 Report Impression - Status: SIGNED Entered: 06/29/2020 1020 IMPRESSION: No osteomyelitis. No drainable fluid collection. Mild peroneus longus tenosynovitis. Impression By: [email or web address] - Michael Bai MD [facility] - MRI LOW EXT W/O CON T LT 06/29 829 Report Impression - Status: SIGNED Entered: 06/29/2020 1120 IMPRESSION: No osteomyelitis. No drainable fluid collection. Mild peroneus longus tenosynovitis. 0.5 x 0.5 x 1.5 cm ganglion versus varix situate d at the plantar aspect of the 3rd metatarsal shaft within the in trinsic foot musculature. Impression By: Alex Bai MD Hematology: 06/29 06 Hematology Hgb (14.0 - 18.0 g/dL) 13.2 L Hct (37.0 - 49.0 %) 39.0 Plt Count (130 - 400 x10 3/uL) 421 H Chemistry: 06/29 844 Chemistry Creatinine (0.7 - 1.3 mg/dL) 0.7 Laboratory Tests: 06/29 06/29 0845 0631 Chemistry BUN (9 - 20 mg/dL) 12 Creatinine (0.7 - 1.3 mg/dL) 0.7 Total Bilirubin (0.2 - 1.3 mg/dL) 0.7 AST (15 - 46 U/L) 22 ALT (0 - 34 U/L) 12 Albumin (3.5 - 5.0 g/dL) 3.9 Hematology Hgb (14.0 - 18.0 g/dL) 13.2 L Hct (37.0 - 49.0 %) 39.0 Plt Count (130 - 400 x10 3/uL) 421 H Recent Impressions: RADIOLOGY - XR CHEST 1 V 06/28 1530 Report Impression - Status: SIGNED Entered: 06/28/2020 1539 IMPRESSION: No acute abnormality identified. Impression By: Randolph Linda M.D. RADIOLOGY - XR FOOT 3 + V LT 06/28 1648 Report Impression - Status: SIGNED Entered: 06/28/2020 1703 IMPRESSION: No radiographic evidence of osteomyelitis. If in dicated, a bone scan or MRI are more sensitive for the detection of o steomyelitis. Impression By: Alex Bai MD [facility] - MRI LOW EXT W/O CON T RT 06/29 0830 Report Impression - Status: SIGNED Entered: 06/29/2020 1020 IMPRESSION: No osteomyelitis. No drainable fluid collection. Mild peroneus longus tenosynovitis. Impression By: Alex Bai MD [facility] - MRI LOW EXT W/O CON T LT 06/29 0830 Report Impression - Status: SIGNED Entered: 06/29/2020 1120 IMPRESSION: No osteomyelitis. No drainable fluid collection. Mild peroneus longus tenosynovitis. 0.5 x 0.5 x 1.5 cm ganglion versus varix situate d at the plantar aspect of the 3rd metatarsal shaft within the in trinsic foot musculature. Impression By: [email or web address] - Michael Bai MD Vital Signs: Date Time Temp Pulse Resp B/P B/P Pulse O2 O2 F low FiO2 Mean Ox Delivery Rate 06/29 2302 98.2 72 16 96/57 70.0 93 06/29 1948 98.2 76 16 104/67 79.5 91 06/29 1518 98.8 86 16 164/86 112.0 96 06/29 1143 99.0 98 17 143/85 104.3 95 06/29 0729 98.6 75 16 142/88 105.8 97 06/29 0404 98.6 75 14 146/80 101.9 98 06/29 0004 98.6 85 16 135/78 97.1 99 Current Medications Sig/Bita Start time Last Medication Dose Route Stop Time Status Admin Losartan Potassium 50 MG DAILY 06/29 899 AC PO 07/29 09 0846 Nicotine 14 MG DAILY 06/29 899 AC 06/29 TRANSDERM 07/29 0901 0847 Insulin Human Lispro 5 UNITS AC 06/29 0730 AC 0 06/29 SUBQ 07/29 0731 1719 Insulin Glargine 15 UNITS BEDTIME 06/28 2100 A C 06/29 SUBQ 07/28 2101 2106 Linezolid 600 MG Q12HR 06/28 2100 AC 06/29 PO 07/12 2058 210 Sodium Chloride 5 ML Q12HR 06/28 2100 DC 06/28 IV 06/29 0240 2124 Cefepime HCl 1 GM Q8H 06/28 2029 AC 06/29 Sterile Water 10 ML IV 07/12 Clonidine HCl 0.1 MG Q6H PRN PRN 06/28 2014 AC 06/29 PO 07/29 2015 174 Enoxaparin Sodium 40 MG Q24H 06/28 2014 AC SUBQ 07/28 Dextrose/Water 25 ML ASDIR PRN 06/28 1914 AC IV 07/29 1915 Glucagon 1 MG ASDIR PRN 06/28 1914 AC IM 07/29 1915 Insulin Human Lispro See Dose ASDIR 06/28 1914 AC 06/29 Insts (1) SUBQ 07/29 1915 1720 Sodium Chloride 5 ML ASDIR PRN 06/28 1800 DC IV 06/29 0540 Sodium Chloride 10 ML ASDIR PRN 06/28 1800 DC IV 06/29 0540 Sodium Chloride 250 ML ASDIR PRN 06/28 1800 DC IV 06/29 0540 Ondansetron HCl 4 MG Q4H PRN PRN 06/28 1751 DC IV 06/29 0549 Dose Instructions: (1)Insulin Human Lispro: LOW DOSE SCALE Objective General VS/I O: 24 hour I O ending at 0700: 06/29 0700 06/28 190 Intake Total Output Total Balance Patient 81.818 kg 81.818 kg Weight Weight Stated/Reported Stated/Reported Measurement Method Vital Signs: Date Time Temp Pulse Resp B/P B/P Pulse O2 O2 F low FiO2 Mean Ox Delivery Rate 06/29 2301 98.2 72 16 96/57 70.0 93 06/29 194 98.2 76 16 104/67 79.5 91 06/29 1518 98.8 86 16 164/86 112.0 96 06/29 1143 99.0 98 17 143/85 104.3 95 06/29 0729 98.6 75 16 142/88 105.8 97 06/29 0404 98.6 75 14 146/80 101.9 98 06/29 0004 98.6 85 16 135/78 97.1 99 PATIENT WEIGHT: Weight (lb): 180 Weight (oz): 6.04 Weight (kg): 81.818 Physical Exam General appearance: alert, awake, oriented HEENT: atraumatic, EOMI Neck: non-tender, no JVD Cardiovascular: normal S1/S2 Respiratory: clear to auscultation Abdomen: non-tender, soft Extremities: no edema Diagnosis, Assessment Plan Free Text A P: 1. Bilateral foot wound secondary diabetes with peripheral neuropathy 2. Diabetes poorly controlled 3. Cellulitis of bilateral foot Plan for MRI of bilateral foot Wound care Monitor blood sugars closely Discussed with the staff regarding plan of care Pain control at 1942 RPT #:[id number] END OF REPORT 2020-06-29 09:35:00-00:00 [facility] ([facility]) Infect Disease Consult Note REPORT#:[id number] REPORT STATUS: Signed DATE:06/29/20 TIME: 934 PATIENT: HARJINDER COLUNGA UNIT #: [id number] ROOM/BED: [address] : 69 AGE: 55 SEX: M ATTEND: Arpit Laureano ADM AUTHOR: Harjinder Ganrer MD R1 * ALL edits or amendments must be made on the [employer]/computer document * History of Present Illness HPI: 55yoWM w/ PMH uncontrolled D M, peripheral neuropathy, cataracts/blindness, MO in 2003, and tobacco abuse presented for bleeding L foot ulcers. The patient reports that his blindness and neuropathy preven yana him from noticing the development of the ulcers and he did not realize they existed until his cohabitant remarked on the b lood loss. He only takes metformin for diabetes and reports compliance with the medication but he does not know his A1c. He reports that he has still been able to ambulate albeit with some difficulty. He denies pain in the feet, or f/ch/ns /SOB/cp/n/v/d. Appetite good, bowel/bladder function normal. History - Adult longitudinal Past medical history: Reports: Diabetes mellitus (BS 168 MG/DL LAST PM ). Additional medical history: MO in 2003 Additional surgical history: None Drug use: Denies recreational drugs Smoking status: Smoking status for patients 13 years old or old er: Current every day smoker Date last smoked: 06/28/20 Packs per day: 1 Years smoked: 40 Pack years: 40 Other social history: Hx of substance and alcoho l abuse Allergies: Coded Allergies: No Known Allergies (10/08/19) Review of Systems All systems rev neg: except as marked (As per HP I) Objective General VS/I O: Last Documented: Result Date Time Pulse Ox 97 06/29 728 B/P 142/88 06/29 728 B/P Mean 105.8 06/29 728 Temp 98.6 06/29 728 Pulse 75 06/29 728 Resp 16 06/29 728 O2 Delivery Room air 06/28 1458 Vital Signs Date Temp Pulse Resp B/P B/P Mean Pulse Ox FiO2 06/28-06/29 98.6-99.3 75-109 14-18 129-161/78-95 97.0-116.8 97-99 24 hour I O ending at 0700: 06/29 0700 06/28 1900 Intake Total Output Total Balance Patient 180 lb 180 lb Weight Weight Stated/Reported Stated/Reported Measurement Method PATIENT WEIGHT: Weight (lb): 180 Weight (oz): 6.04 Weight (kg): 81.818 Physical Exam General appearance: alert, awake, oriented, Appe ars dishelveled, older than stated age. Head/eyes: atraumatic, normocephalic Neck: supple Cardiovascular: normal heart sounds, regular rat e rhythm Respiratory: clear to auscultation, aerating wel l Abdomen: non-tender Extremities: Bilateral feet wrapped with betadin e wet-to-dry bandages which appear clean and intact., Te nderness BL ankle. No erythema or edema noted to the BL leg above the ankle. Neuro/[employer]: alert, oriented X 3 Results Findings/Data: Laboratory Tests 06/29 06/29 06/29 06/29 0845 0728 0631 0413 Chemistry Sodium (137 - 145 mmol/L) 134 L Potassium (3.4 - 5.0 mmol/L) 5.0 Chloride (98 - 107 mmol/L) 96 L Carbon Dioxide (22 - 30 mmol/L) 32 H BUN (9 - 20 mg/dL) 12 Creatinine (0.7 - 1.3 mg/dL) 0.7 Glomerular Filtr Rate (>60) 125 Glucose (74 - 106 mg/dL) 202 H POC Glucose (74 - 106 MG/DL) 184 H Hemoglobin A1c (0 - 5.9 %) 11.8 H Calcium (8.4 - 10.2 mg/dL) 9.1 Total Bilirubin (0.2 - 1.3 mg/dL) 0.7 Conjugated Bilirubin (0 - 0.3 mg/dL) 0 Unconjugated Bilirubin (0 - 1.1 mg/dL) 0.5 AST (15 - 46 U/L) 22 ALT (0 - 34 U/L) 12 Total Alk Phosphatase (38 - 126 U/L) 105 C-Reactive Protein (0 - 9 mg/L) 51.3 H Total Protein (6.3 - 8.2 g/dL) 7.8 Albumin (3.5 - 5.0 g/dL) 3.9 Triglycerides (mg/dL) 122 Cholesterol (mg/dL) 150 LDL Cholesterol Measurd (32 - 99 mg/dL) 104.88 H HDL Cholesterol (40 - 59 mg/dL) 26 L Coronary Risk Interp 5.77 06/28 1527 1527 Chemistry Sodium (137 - 145 mmol/L) 130 L Potassium (3.4 - 5.0 mmol/L) 4.6 Chloride (98 - 107 mmol/L) 93 L Carbon Dioxide (22 - 30 mmol/L) 29 BUN (9 - 20 mg/dL) 13 Creatinine (0.7 - 1.3 mg/dL) 0.7 Glomerular Filtr Rate (>60) 125 Glucose (74 - 106 mg/dL) 404 *H POC Glucose (74 - 106 MG/DL) 253 H Lactic Acid (0.7 - 2.0 mmol/L) 1.7 Calcium (8.4 - 10.2 mg/dL) 9.1 Total Bilirubin (0.2 - 1.3 mg/dL) 0.3 Conjugated Bilirubin (0 - 0.3 mg/dL) 0 Unconjugated Bilirubin (0 - 1.1 mg/dL) 0.1 AST (15 - 46 U/L) 26 ALT (0 - 34 U/L) 13 Total Alk Phosphatase (38 - 126 U/L) 100 Total Protein (6.3 - 8.2 g/dL) 7.7 Albumin (3.5 - 5.0 g/dL) 3.9 Laboratory Tests 06/29 06/28 0631 1527 Hematology WBC (5.0 - 12.0 x10 3/uL) 6.5 7.6 RBC (4.70 - 6.10 x10 6/uL) 4.51 L 4.52 L Hgb (14.0 - 18.0 g/dL) 13.2 L 13.1 L Hct (37.0 - 49.0 %) 39.0 39.6 MCV (80 - 94 fL) 87 88 MCH (27 - 31 pg) 29.3 29.0 MCHC (33 - 37 g/dL) 33.8 33.1 RDW (11.5 - 15.5 %) 12.1 12.2 Plt Count (130 - 400 x10 3/uL) 421 H 484 H MPV (9.4 - 16.4 fL) 9.4 9.6 Neut % (Auto) (43 - 65 %) 65.9 H 74.7 H Lymph % (Auto) (20.5 - 45.5 %) 24.1 17.3 L [place] % (Auto) (5.5 - 11.7 %) 7.7 6.0 Eos % (Auto) (0.9 - 2.9 %) 1.5 0.9 Baso % (Auto) (0.2 - 1.0 %) 0.5 0.7 Neut # (Auto) (2.2 - 4.8 x10 3/uL) 4.30 5.68 H Lymph # (Auto) (1.3 - 2.9 x10 3/uL) 1.57 1.32 [place] # (Auto) (0.3 - 0.8 x10 3/uL) 0.50 0.46 Eos # (Auto) (0.0 - 0.2 x10 3/uL) 0.10 0.07 Baso # (Auto) (0.0 - 0.1 x10 3/uL) 0.03 0.05 Immature Gran % (0.0 - 2.0 %) 0.3 0.4 Nucleated RBC % (0 - 1.0 %) 0.0 0.0 ESR Westergren (0 - 20 mm/hr) 85 H Laboratory Tests 06/28 1537 Urines Urine Color (Yellow) Yellow Urine Appearance (Clear) Clear Urine pH (5.0 - 8.0) 5.0 Ur Specific [place] (<1.030) 1.029 Urine Protein (Negative mg/dL) 30 (1+) H Urine Glucose (UA) (Negative) >=500 (3+) H Urine Ketones (Negative mg/dL) Negative Urine Blood (Negative) 1+ H Urine Nitrite (Negative) Negative Urine Bilirubin (Negative) Negative Urine Urobilinogen (Negative mg/dL) 2.0 H Ur Leukocyte Esterase (Negative) NEGATIVE Urine RBC (<4 - 5 /HPF) 4-5 H Urine WBC (<4 - 5 /HPF) 0-3 Ur Squamous Epith Cells (0 - 5 (RARE) /HPF) 0-5 (RARE) Urine Bacteria (None - Rare /HPF) None Radiology data: Recent Impressions: RADIOLOGY - XR CHEST 1 V 06/28 1530 Report Impression - Status: SIGNED Entered: 06/28/2020 1539 IMPRESSION: No acute abnormality identified. Impression By: [email or web address] - Richard Linda M.D. RADIOLOGY - XR FOOT 3 + V LT 06/28 1648 Report Impression - Status: SIGNED Entered: 06/28/2020 1703 IMPRESSION: No radiographic evidence of osteomyelitis. If in dicated, a bone scan or MRI are more sensitive for the detection of o steomyelitis. Impression By: [email or web address] - Michael Bai MD Diagnosis, Assessment Plan Free Text DxA P Notes Free text DxA P notes: ASSESSMENT 55yoWM w/ PMH uncontrolled D M, peripheral neuropathy, cataracts/blindness, MO in 2003, and tobacco abuse presented for bleeding L foot ulcers. -T2DM, uncontrolled, A1c 11.8 -Peripheral neuropathy -Diabetic foot ulcers 2/2 above, BL -Cellulitis, BL foot PLAN Pt w/ bilateral diabetic rebecca t ulcers 2/2 uncontrolled diabetes (eAG nearly 300). Wound Gram stain w/ GNR and GPC in pairs, Cx NGT D. Due to the uncontrolled diabetes, Pseudomonal covera ge is advisable. Accordingly Abx changed from Unasyn to Zyvox/cefepime. At this time the cell ulitis does not appear to extend above either ankle. No fever/leukocytosis and BCx NGTD. Continue to monitor closely. BL foot MRI pending to r/o o steomyelitis, which will guide duration of therapy. Podiatry onboard and providing recommendations. Discussed disease process and importance of achi eving superior blood sugar control with patient who verbalized ellain gTish Attestations Attestation needed: teaching physician at 1003 RPT #:[id number] END OF REPORT 2020-06-29 09:35:00-00:00 [facility] ([facility]) Infect Disease Consult Note REPORT#:[id number] REPORT STATUS: Signed DATE:06/29/20 TIME: 934 PATIENT: BRIGHTHARJINDER MURPHY UNIT #: [id number] ROOM/BED: 1101-A : 67 AGE: 55 SEX: M ATTEND: Arpit Laureano [facility] AUTHOR: Harjinder Garner MD R1 * ALL edits or amendments must be made on the el dscoveredronic/computer document * Harjinder Garner 06/29/20 0935: History of Present Illness HPI: 55yoWM w/ PMH uncontrolled D M, peripheral neuropathy, cataracts/blindness, MO in 2003, and tobacco abuse presented for bleeding L foot ulcers. The patient reports that his blindness and neuropathy preven yana him from noticing the development of the ulcers and he did not realize they existed until his cohabitant remarked on the b lood loss. He only takes metformin for diabetes and reports compliance with the medication but he does not know his A1c. He reports that he has still been able to ambulate albeit with some difficulty. He denies pain in the feet, or f/ch/ns /SOB/cp/n/v/d. Appetite good, bowel/bladder function normal. History - Adult longitudinal Past medical history: Reports: Diabetes mellitus (BS 168 MG/DL LAST PM ). Additional medical history: MO in 2003 Additional surgical history: None Drug use: Denies recreational drugs Smoking status: Smoking status for patients 13 years old or old er: Current every day smoker Date last smoked: 06/28/20 Packs per day: 1 Years smoked: 40 Pack years: 40 Other social history: Hx of substance and alcoho l abuse Allergies: Coded Allergies: No Known Allergies (10/08/19) Review of Systems All systems rev neg: except as marked (As per H PI) Objective General VS/I O: Last Documented: Result Date Time Pulse Ox 97 06/29 728 B/P 142/88 06/29 728 B/P Mean 105.8 06/29 728 Temp 98.6 06/29 0729 Pulse 75 06/29 07 Resp 16 06/29 728 O2 Delivery Room air 06/28 1458 Vital Signs Date Temp Pulse Resp B/P B/P Mean Pulse Ox FiO2 06/28-06/29 98.6-99.3 75-109 14-18 129-161/78-95 97.0-116.8 97-99 24 hour I O ending at 0700: 06/29 0700 06/28 1900 Intake Total Output Total Balance Patient 180 lb 180 lb Weight Weight Stated/Reported Stated/Reported Measurement Method PATIENT WEIGHT: Weight (lb): 180 Weight (oz): 6.04 Weight (kg): 81.818 Physical Exam General appearance: alert, awake, oriented, Appe ars dishelveled, older than stated age. Head/eyes: atraumatic, normocephalic Neck: supple Cardiovascular: normal heart sounds, regular rat e rhythm Respiratory: clear to auscultation, aerating wel l Abdomen: non-tender Extremities: Bilateral feet wrapped with betadin e wet-to-dry bandages which appear clean and intact., Te nderness BL ankle. No erythema or edema noted to the BL leg above the ankle. Neuro/MARINE ELECTRICIAN HELPER: alert, oriented X 3 Results Findings/Data: Laboratory Tests 06/29 06/29 06/29 06/29 0845 0728 0631 0413 Chemistry Sodium (137 - 145 mmol/L) 134 L Potassium (3.4 - 5.0 mmol/L) 5.0 Chloride (98 - 107 mmol/L) 96 L Carbon Dioxide (22 - 30 mmol/L) 32 H BUN (9 - 20 mg/dL) 12 Creatinine (0.7 - 1.3 mg/dL) 0.7 Glomerular Filtr Rate (>60) 125 Glucose (74 - 106 mg/dL) 202 H POC Glucose (74 - 106 MG/DL) 184 H Hemoglobin A1c (0 - 5.9 %) 11.8 H Calcium (8.4 - 10.2 mg/dL) 9.1 Total Bilirubin (0.2 - 1.3 mg/dL) 0.7 Conjugated Bilirubin (0 - 0.3 mg/dL) 0 Unconjugated Bilirubin (0 - 1.1 mg/dL) 0.5 AST (15 - 46 U/L) 22 ALT (0 - 34 U/L) 12 Total Alk Phosphatase (38 - 126 U/L) 105 C-Reactive Protein (0 - 9 mg/L) 51.3 H Total Protein (6.3 - 8.2 g/dL) 7.8 Albumin (3.5 - 5.0 g/dL) 3.9 Triglycerides (mg/dL) 122 Cholesterol (mg/dL) 150 LDL Cholesterol Measurd (32 - 99 mg/dL) 104.88 H HDL Cholesterol (40 - 59 mg/dL) 26 L Coronary Risk Interp 5.77 06/28 1527 1527 Chemistry Sodium (137 - 145 mmol/L) 130 L Potassium (3.4 - 5.0 mmol/L) 4.6 Chloride (98 - 107 mmol/L) 93 L Carbon Dioxide (22 - 30 mmol/L) 29 BUN (9 - 20 mg/dL) 13 Creatinine (0.7 - 1.3 mg/dL) 0.7 Glomerular Filtr Rate (>60) 125 Glucose (74 - 106 mg/dL) 404 *H POC Glucose (74 - 106 MG/DL) 253 H Lactic Acid (0.7 - 2.0 mmol/L) 1.7 Calcium (8.4 - 10.2 mg/dL) 9.1 Total Bilirubin (0.2 - 1.3 mg/dL) 0.3 Conjugated Bilirubin (0 - 0.3 mg/dL) 0 Unconjugated Bilirubin (0 - 1.1 mg/dL) 0.1 AST (15 - 46 U/L) 26 ALT (0 - 34 U/L) 13 Total Alk Phosphatase (38 - 126 U/L) 100 Total Protein (6.3 - 8.2 g/dL) 7.7 Albumin (3.5 - 5.0 g/dL) 3.9 Laboratory Tests 06/29 06/28 0631 1527 Hematology WBC (5.0 - 12.0 x10 3/uL) 6.5 7.6 RBC (4.70 - 6.10 x10 6/uL) 4.51 L 4.52 L Hgb (14.0 - 18.0 g/dL) 13.2 L 13.1 L Hct (37.0 - 49.0 %) 39.0 39.6 MCV (80 - 94 fL) 87 88 MCH (27 - 31 pg) 29.3 29.0 MCHC (33 - 37 g/dL) 33.8 33.1 RDW (11.5 - 15.5 %) 12.1 12.2 Plt Count (130 - 400 x10 3/uL) 421 H 484 H MPV (9.4 - 16.4 fL) 9.4 9.6 Neut % (Auto) (43 - 65 %) 65.9 H 74.7 H Lymph % (Auto) (20.5 - 45.5 %) 24.1 17.3 L [place] % (Auto) (5.5 - 11.7 %) 7.7 6.0 Eos % (Auto) (0.9 - 2.9 %) 1.5 0.9 Baso % (Auto) (0.2 - 1.0 %) 0.5 0.7 Neut # (Auto) (2.2 - 4.8 x10 3/uL) 4.30 5.68 H Lymph # (Auto) (1.3 - 2.9 x10 3/uL) 1.57 1.32 [place] # (Auto) (0.3 - 0.8 x10 3/uL) 0.50 0.46 Eos # (Auto) (0.0 - 0.2 x10 3/uL) 0.10 0.07 Baso # (Auto) (0.0 - 0.1 x10 3/uL) 0.03 0.05 Immature Gran % (0.0 - 2.0 %) 0.3 0.4 Nucleated RBC % (0 - 1.0 %) 0.0 0.0 ESR Westergren (0 - 20 mm/hr) 85 H Laboratory Tests 06/28 1537 Urines Urine Color (Yellow) Yellow Urine Appearance (Clear) Clear Urine pH (5.0 - 8.0) 5.0 Ur Specific [place] (<1.030) 1.029 Urine Protein (Negative mg/dL) 30 (1+) H Urine Glucose (UA) (Negative) >=500 (3+) H Urine Ketones (Negative mg/dL) Negative Urine Blood (Negative) 1+ H Urine Nitrite (Negative) Negative Urine Bilirubin (Negative) Negative Urine Urobilinogen (Negative mg/dL) 2.0 H Ur Leukocyte Esterase (Negative) NEGATIVE Urine RBC (<4 - 5 /HPF) 4-5 H Urine WBC (<4 - 5 /HPF) 0-3 Ur Squamous Epith Cells (0 - 5 (RARE) /HPF) 0-5 (RARE) Urine Bacteria (None - Rare /HPF) None Radiology data: Recent Impressions: RADIOLOGY - XR CHEST 1 V 06/28 1530 Report Impression - Status: SIGNED Entered: 06/28/2020 1539 IMPRESSION: No acute abnormality identified. Impression By: [email or web address] - Richard Linda, M.D. RADIOLOGY - XR FOOT 3 + V LT 06/28 1648 Report Impression - Status: SIGNED Entered: 06/28/2020 1703 IMPRESSION: No radiographic evidence of osteomyelitis. If in dicated, a bone scan or MRI are more sensitive for the detection of o steomyelitis. Impression By: [email or web address] - Michael Bai MD Diagnosis, Assessment Plan Free Text DxA P Notes Free text DxA P notes: ASSESSMENT 55yoWM w/ PMH uncontrolled D M, peripheral neuropathy, cataracts/blindness, MO in 2003, and tobacco abuse presented for bleeding L foot ulcers. -T2DM, uncontrolled, A1c 11.8 -Peripheral neuropathy -Diabetic foot ulcers 2/2 above, BL -Cellulitis, BL foot PLAN Pt w/ bilateral diabetic rebecca t ulcers 2/2 uncontrolled diabetes (eAG nearly 300). Wound Gram stain w/ GNR and GPC in pairs, Cx NGT D. Due to the uncontrolled diabetes, Pseudomonal covera ge is advisable. Accordingly Abx changed from Unasyn to Zyvox/cefepime. At this time the cell ulitis does not appear to extend above either ankle. No fever/leukocytosis and BCx NGTD. Continue to monitor closely. BL foot MRI pending to r/o o steomyelitis, which will guide duration of therapy. Podiatry onboard and providing recommendations. Discussed disease process and importance of achi eving superior blood sugar control with patient who verbalized jevon mckeon Attestations Attestation needed: teaching physician Anam Velez 06/29/20 1503: Attestations Physician Attestation Agree w/findings plan: Agree with the findings and plan as documented b y [insert CLAUDETTE name]; * my personal evaluation is [ ] WAS WEARING HEAVY BOOTS>> CAUSED ALL THESE WOUND S MRI NOTED SAME ABX NEEDS DIABETC SHOES OUT PT at 1003 Electronically Signed by Anam Velez MD on 0 06/29/20 at 1505 RPT #:[id number] END OF REPORT 2020-06-29 07:33:00-00:00 [facility]) Podiatry Progress Note REPORT#:[id number] REPORT STATUS: Signed DATE:06/29/20 TIME: 732 PATIENT: HARJINDER COLUNGA UNIT #: [id number] ROOM/BED: [address] : 67 AGE: 55 SEX: M ATTEND: GeorgiRejirafael yohanaebony Blandon ADM AUTHOR: Mazin Sr DPVasquez R2 * ALL edits or amendments must be made on the [employer] document * General VS/I O: Last Documented: Result Date Time Pulse Ox 97 06/29 728 B/P 142/88 06/29 728 B/P Mean 105.8 06/29 728 Temp 37.0 06/29 728 Pulse 75 06/29 728 Resp 16 06/29 728 O2 Delivery Room air 06/28 1458 24 hour I O ending at 0700: 06/29 0700 06/28 1900 Intake Total Output Total Balance Patient 81.818 kg 81.818 kg Weight Weight Stated/Reported Stated/Reported Measurement Method PATIENT WEIGHT: Weight (lb): 180 Weight (oz): 6.04 Weight (kg): 81.818 Subjective Chief complaint: peter DM ft wounds w/ cellulitis HPI: pt has no current complaints Review of Systems Constitutional: Denies: chills, fatigue, fever, generalized weak ness. Respiratory: Denies: SOB. Cardiovascular: Denies: chest pain, ROSE (dyspnea on exertion). GI: Denies: abdominal pain. Objective General Medications: Active Meds + DC'd Last 24 Hrs Losartan Potassium 50 MG DAILY PO Nicotine 14 MG DAILY TRANSDERM Insulin Human Lispro 5 UNITS AC SUBQ Ampicillin Sodium/Sulbactam Sodium 3 GM Q6HR IV (CAN) Sodium Chloride 100 ML Insulin Glargine 15 UNITS BEDTIME SUBQ Linezolid 600 MG Q12HR PO Sodium Chloride 5 ML Q12HR IV (DC) Cefepime HCl 1 GM Q8H IV Sterile Water 10 ML Clonidine HCl 0.1 MG Q6H PRN PRN PO Enoxaparin Sodium 40 MG Q24H SUBQ Dextrose/Water 25 ML ASDIR PRN IV Glucagon 1 MG ASDIR PRN IM Insulin Human Lispro LOW DOSE SCALE ASDIR SUBQ Sodium Chloride 5 ML ASDIR PRN IV (DC) Sodium Chloride 10 ML ASDIR PRN IV (DC) Sodium Chloride 250 ML ASDIR PRN IV (DC) Ondansetron HCl 4 MG Q4H PRN PRN IV (DC) Ampicillin Sodium/Sulbactam Sodium 3 GM X1ED STA IV (DC) Sodium Chloride 100 ML Lactated Ringer's 1,000 ML X1ED STA IV (DC) Physical Exam General appearance: alert, awake, oriented, no a cute distress, pleasant Wound/incision: Location: FOCUSED LOWER EXTREMITY PODIATRIC EXAMINATION: VASCULAR: Pulses nonpalpable, DP and PT bilatera lly. Cap refill within normal limits. Hair absent at digits bilaterally. DERMATOLOGIC: Ulceration on distal aspect of lef t hallux with granular base, approximately 1.5 cm x 2 cm extending erythema d orsally on hallux and dorsal aspect of the forefoot, but not extending past the ankle. On the plantar aspect of left foot, superficial wo und with size measuring approximately 5 x 5 cm with base being mix of fibrotic, granular, and eschar tissue with rolled edges on periwound. No significant drainage is noted. No foul odor. No significant edema on right lower extremity. The fourth digit is erythematous, swollen and turning violaceous with nail being disfigured an d wounded, also superficial wound on the plantar aspect of first metatarsal head on the right foot with breakdown of skin. No erythema extending proxima lly on the right foot. NEUROLOGIC: Complete loss of protective sensatio n and loss of light touch, insensate to pain. ORTHO: The patient has somewhat contracted digit s 2 through 5 bilaterally, hallux abductovalgus bilaterally. Normal strengt h and range of motion, otherwise. Diagnosis, Assessment Plan Free Text A P: DIAGNOSES: Harjinder Colunga is a 55-year-old male. 1. Bilateral foot wounds secondary to diabetes w ith peripheral neuropathy. 2. Uncontrolled diabetes. 3. cellulitis PLAN: The patient will be admitted for infectiou s disease to direct antibiotics. Note that a wound culture was taken and pending. Further imaging of MRI to deduce any possible bone infection or abscess. ABIs pending. If necessary, wascular will be consulted. After additional information from imaging , labs and additional consultations, surgical poss ibilities will be considered. Until then, continue with conservative treatment with Betadine wet-to-dry. discussed with attending at 0738 at 1135 [facility] #:[id number] END OF REPORT 2020-06-29 07:33:00-00:00 [facility] Podiatry Progress Note REPORT#:[id number] REPORT STATUS: Signed DATE:06/29/20 TIME: 732 PATIENT: HARJINDER COLUNGA UNIT #: [id number] ROOM/BED: [address] : 67 AGE: 55 SEX: M ATTEND: Arpit Laureano ADM AUTHOR: Mazin Sr DPVasquez R2 * ALL edits or amendments must be made on the [employer]/computer document * General VS/I O: Last Documented: Result Date Time Pulse Ox 97 06/29 728 B/P 142/88 06/29 728 B/P Mean 105.8 06/29 728 Temp 37.0 06/29 728 Pulse 75 06/29 07 Resp 16 06/29 728 O2 Delivery Room air 06/28 1458 24 hour I O ending at 0700: 06/29 0700 06/28 1900 Intake Total Output Total Balance Patient 81.818 kg 81.818 kg Weight Weight Stated/Reported Stated/Reported Measurement Method PATIENT WEIGHT: Weight (lb): 180 Weight (oz): 6.04 Weight (kg): 81.818 Subjective Chief complaint: peter DM ft wounds w/ cellulitis HPI: pt has no current complaints Review of Systems Constitutional: Denies: chills, fatigue, fever, generalized weak ness. Respiratory: Denies: SOB. Cardiovascular: Denies: chest pain, ROSE (dyspnea on exertion). GI: Denies: abdominal pain. Objective General Medications: Active Meds + DC'd Last 24 Hrs Losartan Potassium 50 MG DAILY PO Nicotine 14 MG DAILY TRANSDERM Insulin Human Lispro 5 UNITS AC SUBQ Ampicillin Sodium/Sulbactam Sodium 3 GM Q6HR IV (CAN) Sodium Chloride 100 ML Insulin Glargine 15 UNITS BEDTIME SUBQ Linezolid 600 MG Q12HR PO Sodium Chloride 5 ML Q12HR IV (DC) Cefepime HCl 1 GM Q8H IV Sterile Water 10 ML Clonidine HCl 0.1 MG Q6H PRN PRN PO Enoxaparin Sodium 40 MG Q24H SUBQ Dextrose/Water 25 ML ASDIR PRN IV Glucagon 1 MG ASDIR PRN IM Insulin Human Lispro LOW DOSE SCALE ASDIR SUBQ Sodium Chloride 5 ML ASDIR PRN IV (DC) Sodium Chloride 10 ML ASDIR PRN IV (DC) Sodium Chloride 250 ML ASDIR PRN IV (DC) Ondansetron HCl 4 MG Q4H PRN PRN IV (DC) Ampicillin Sodium/Sulbactam Sodium 3 GM X1ED STA IV (DC) Sodium Chloride 100 ML Lactated Ringer's 1,000 ML X1ED STA IV (DC) Physical Exam General appearance: alert, awake, oriented, no a cute distress, pleasant Wound/incision: Location: FOCUSED LOWER EXTREMITY PODIATRIC EXAMINATION: VASCULAR: Pulses nonpalpable, DP and PT bilatera lly. Cap refill within normal limits. Hair absent at digits bilaterally. DERMATOLOGIC: Ulceration on distal aspect of lef t hallux with granular base, approximately 1.5 cm x 2 cm extending erythema d orsally on hallux and dorsal aspect of the forefoot, but not extending past the ankle. On the plantar aspect of left foot, superficial wo und with size measuring approximately 5 x 5 cm with base being mix of fibrotic, granular, and eschar tissue with rolled edges on periwound. No significant drainage is noted. No foul odor. No significant edema on right lower extremity. The fourth digit is erythematous, swollen and turning violaceous with nail being disfigured an d wounded, also superficial wound on the plantar aspect of first metatarsal head on the right foot with breakdown of skin. No erythema extending proxima lly on the right foot. NEUROLOGIC: Complete loss of protective sensatio n and loss of light touch, insensate to pain. ORTHO: The patient has somewhat contracted digit s 2 through 5 bilaterally, hallux abductovalgus bilaterally. Normal strengt h and range of motion, otherwise. Diagnosis, Assessment Plan Free Text A P: DIAGNOSES: Harjinder Colunag is a 55-year-old male. 1. Bilateral foot wounds secondary to diabetes w ith peripheral neuropathy. 2. Uncontrolled diabetes. 3. cellulitis PLAN: The patient will be admitted for infectiou s disease to direct antibiotics. Note that a wound culture was taken and pending. Further imaging of MRI to deduce any possible bone infection or abscess. ABIs pending. If necessary, wascular will be consulted. After additional information from imaging , labs and additional consultations, surgical poss ibilities will be considered. Until then, continue with conservative treatment with Betadine wet-to-dry. discussed with attending at 0738 [facility] #:[id number] END OF REPORT 2020-06-28 20:01:00-00:00 [id number] [facility] [address] [place] [address] PATIENT NAME: HARJINDER COLUNGA ADMIT DATE: 06/28/20 ACCOUNT NO: [id number] ROOM NO: 1101 AGE: 55 REPORT TYPE: HISTORY AND PHYSICAL SEX: Vasquez ADMITTING PHYSICIAN:Nathanael Laureano ATTENDING PHYSICIAN:Nathanael Laureano ADMISSION DATE: 06/28/2020 CHIEF COMPLAINT: The patient was brought in with wound over the left foot. HISTORY OF PRESENT ILLNESS: This is a 55 -year-old male. The patient is legally blind, who moved from [facility] a a year ago and patient states he has not seen and established any primary care doctor and gets his medications through the ER. The patient states that he i s not sure how long he has the wound, it is going on for the past few months and he has not seen a [facility] doctor. Wound was found by the caregiver. The patient s tates that he has past medical history of diabetes, but he does not take his medications and does no t check his blood sugars. Denies of any fever or chills and no nausea and no vomiting. The patient was admitted for close monitoring and for further ev aluation. ALLERGIES: NO KNOWN DRUG ALLERGIES. HOME MEDICATIONS: MARs list reviewed. PAST MEDICAL HISTORY: 1. Diabetes type 2. 2. Hypertension. PAST SURGICAL HISTORY: No recent surgeries. SOCIAL HISTORY: Smokes less than pack a day. No alcohol use. REVIEW OF SYSTEMS: Other than the history, rest of the 10-point review of systems performed negative. FAMILY HISTORY: Unknown. PHYSICAL EXAMINATION: VITAL SIGNS: Temperature of 99.3, pulse of 118, respiratory rate 18, blood pressure 120/80. HEENT: Atraumatic and normocephalic. NECK: Supple. No JVD. CHEST: Decreased breath sounds, bibasilar. HEART: S1 and S2. ABDOMEN: Soft. Bowel sounds present. EXTREMITIES: Noted to have left foot ulcer and t he dressing in place. LABORATORY DATA: Urinalysis shows wbc's 0 to 3. CBC; white count of 7.6, hemoglobin 13.1, hematocrit of 39.6, and platele ts of 484. Sodium 130, PATIENT NAME: HARJINDER COLUNGA 917 potassium 4.0, chloride 93, CO2 of 29, BUN of 13 , creatinine 0.7, glucose of ____. ASSESSMENT AND PLAN: 1. Left foot ulcer. 2. Likely peripheral vascular disease. 3. Diabetes, uncontrolled. At this time, I had a long discussion and explai serenity in length. The patient is noncompliant with medications and has not taken his diabetic medication. We will keep patient on Unasyn and monitor blood sugars closely. We will start him on Humalog along with Levemir and contin ue to monitor blood sugars closely and we will get a Podiatry input for further evaluat ion. Discussed in length regarding treatment plan. Dictated By: Nathanael Laureano MD WT: HP:CHOLLY/THU.Yobani/NTS Conf#: [id number]#: [id number] Authenticated by Nathanael Laureano MD O n 06/29/2020 09:55:13 PM at 0088 PATIENT NAME: HARJINDER COLUNGA 917 2020-06-28 18:47:00-00:00 [facility] ([facility]) History Physical - Adult REPORT#:[id number] REPORT STATUS: Signed DATE:06/28/20 TIME: 1846 PATIENT: HARJINDER COLUNGA UNIT #: [id number] [facility] AGE: 55 SEX: M ATTEND: Arpit Laureano ADM AUTHOR: Nathanael Laureano * ALL edits or amendments must be made on the el [employer]/computer document * History Past medical history: Reports: Diabetes mellitus (BS 168 MG/DL LAST PM ). Additional medical history: MO in 2003 Additional surgical history: None Drug use: Denies recreational drugs Smoking status: Smoking status for patients 13 years old or old er: Current every day smoker Other social history: Hx of substance and alcoho l abuse Medication/Allergy-Vaccine Hx Allergies: Coded Allergies: No Known Allergies (10/08/19) at 1937 RPT #:[id number] END OF REPORT 2020-06-28 18:38:00-00:00 [id number] [facility] [address] [place] [address] PATIENT NAME: HARJINDER COLUNGA ADMIT DATE: 06/28/20 ACCOUNT NO: [id number] ROOM NO: 1101 AGE: 55 REPORT TYPE: CONSULTATION SEX: M ADMITTING PHYSICIAN:Nathanael Laureano ATTENDING PHYSICIAN:Nathanael Laureano CONSULTATION DATE: CONSULTING PHYSICIAN: Marito Ray DPM REQUESTING PHYSICIAN: Wojciech Dolan DO REASON FOR CONSULTATION: Bilateral foot wounds w ith cellulitis. CHIEF COMPLAINT: Bilateral foot wounds with left ankle pain. HISTORY OF PRESENT ILLNESS: The patient is an un controlled diabetic without a primary care physician. He does not check his bl ood sugars, nor does he know his A1c. He does take metformin regularly, but h as developed peripheral neuropathy and has no sensation in his feet. He recently was discovered by someone who lives with him that his feet were bl eeding and this was noticed 3 days ago. He has had then cl joaquin daily, but no further treatment of antibiotics, topicals, or wound care. He does not know if the wounds are getting worse or better. He is legally blind and cannot see his f eet. He states that he has been blind for 3 to 4 years due to cataract mark ge. He denies all other symptoms including nausea, vomiting, fev er, chills, shortness of breath, chest pain, and only feels his left ankle in pain. PAST MEDICAL HISTORY: Diabetes, peripheral neuro chris. MEDICATIONS: Metformin. ALLERGIES: NONE. PAST SURGICAL HISTORY: None. SOCIAL HISTORY: Smoking a pack per day for the l ast 38 years. Drinking, none. Work, he is disabled, being legally blind. FAMILY HISTORY: Diabetes and heart disease. REVIEW OF SYSTEMS: As previo usly stated, with ankle pain, left ankle and denies all other systems after thorough review of revie w of systems. PHYSICAL EXAMINATION: VITAL SIGNS: Temperature 37.4, pulse 106, respir atory rate 18, blood pressure 129/81, and pulse ox 97. GENERAL: A 55-year-old male, alert, aware, and o riented x3. HEAD: Atraumatic and normocephalic. PATIENT NAME: HARJINDER COLUNGA 917 EYES: EOMI, PERRL. NOSE, MOUTH: Moist mucosal membranes. NECK: Symmetrical. No JVD or thyromegaly. HEART: Regular rate and rhythm. LUNGS: Symmetric expansion without distress. ABDOMEN: Soft, nontender, and nondistended. FOCUSED LOWER EXTREMITY PODIATRIC EXAMINATION: VASCULAR: Pulses nonpalpable, DP and PT bilatera lly. Cap refill within normal limits. Hair absent at digits bilaterally. DERMATOLOGIC: Ulceration on distal aspect of lef t hallux with granular base, approximately 1.5 cm x 2 cm extending erythema d orsally on hallux and dorsal aspect of the forefoot, but not extending past the ankle. On the plantar aspect of left foot, superficial wo und with size measuring approximately 5 x 5 cm with base being mix of fibrotic, granular, and eschar tissue with rolled edges on periwound. No significant drainage is noted. No foul odor. No significant edema on right lower extremity. The fourth digit is erythematous, swollen and turning violaceous with nail being disfigured an d wounded, also superficial wound on the plantar aspect of first metatarsal head on the right foot with breakdown of skin. No erythema extending proxima lly on the right foot. NEUROLOGIC: Complete loss of protective sensatio n and loss of light touch, insensate to pain. ORTHO: The patient has somewhat contracted digit s 2 through 5 bilaterally, hallux abductovalgus bilaterally. Normal strengt h and range of motion, otherwise. LABORATORY DATA: White blood cell count 7.6. ESR , CRP pending. Lactic acid 1.7. IMAGING: Foot x-ray, no radiographic evidence of osteomyelitis. MRI is pending. DIAGNOSES: Harjinder Colunga is a 55-year-old male. 1. Bilateral foot wounds secondary to diabetes w ith peripheral neuropathy. 2. Uncontrolled diabetes. 3. Peripheral neuropathy. 4. Cellulitis. PLAN: The patient will be admitted for infectiou s disease to direct antibiotics. Note that a wound culture was taken and pending. Further imaging of MRI to deduce any possible bone infection or abscess. ABIs were taken. If necessary, wascular will be consulted after additional information from imaging, labs and additional consultations. Surgical poss ibilities will be considered. Until then, continue with conservative treatment with Betadine wet-to-dry. Thank you for this consult. Podiatry will follow . Dictated By: Mazin Sr DPM (R) for Marito Ray DPM WT: CON:ALEC/JOSELIN/LOTTIE Conf#: [id number]/DID#: [id number] PATIENT NAME: HARJINDER COLUNGA 917 Authenticated by Mazin Sr DPM On 06/19 07:09:44 AM Authenticated by Marito Ray DPM On 07/05/2020 11:31:10 AM at 1131 at 1131 PATIENT NAME: HARJINDER COLUNGA 917 2020-06-28 16:47:00-00:00 [facility] ([facility]) EMERGENCY PROVIDER REPORT REPORT#:[id number] REPORT STATUS: Signed DATE:06/28/20 TIME: 1647 PATIENT: HARJINDER COLUNGA UNIT #: [id number] ROOM/BED: [facility] AGE: 55 SEX: M PCP PHYS: No Primary or Family Ph ysician SERVICE AUTHOR: Giovany Landa MD R1 * ALL edits or amendments must be made on the [employer]/computer document * Giovany Landa V 06/28/201646: HPI-General Illness Free Text HPI Notes Free Text HPI Notes 55M PMH diabetes, smoking pr esents with left foot wound. He has neuropathy. The woman he is living with told him he had blood on his socks. He took off the socks and she noticed the wounds. The pa breana says he recently switched shoes. He has an ulcer on the ball of the foot. The patient denies any fevers, chills, nausea, vomitting. He denies any pain to the are a. General Initial Greet Date/Time 06/28/20 1186 Presentation Chief Complaint Diabetic foot wound Hx Obtained From Patient Sudden in Onset? Yes Onset Occurred Days ago Symptom Duration Since onset Progression since Onset Unchanged Caused by No trauma by history Location Foot R, Foot L Exacerbated by Nothing Relieved by Nothing Review of Systems ROS Statements All systems rev neg except as marked. Complete sys rev neg except as marked. Review of Systems Constitutional Denies: Chills, Fatigue, Fever. Eyes Denies: Blurred R, Blurred L. Ears/Nose/Throat Denies: Mouth pain, Nasal co ngestion, Nose bleeding, Sinus problem, Sore throat, Throat pain, Throat swelling. Respiratory Denies: Cough, non-productive, Cough, productive , Dyspnea on exertion, Hemoptysis, Parox nocturnal dyspnea, Pleuritic p ain, Shortness of breath, Wheezing. Cardiovascular Denies: Chest pain, Dyspnea on exertion, Edema, Orthopnea, Palpitations, Parox nocturnal dyspnea, Syncope. GI Denies: Abdominal pain, Constipation, Diarrhea, Nausea, Vomiting. Male Denies: Dysuria, Flank pain. Musculoskeletal Reports: Extremity swelling. Denies: Back pain, Extremity pain, Joint pain, Joint swelling. Hematologic Denies: Adenopathy, Bleeding, Bruising, Petechia e. Endocrine Denies: Cold intolerance, Heat intolerance, Poly dipsia, Polyphagia. Skin Reports: Abscess, Laceration. Denies: Abrasion, Burn, Contusion, Diaphoresis, Erythema, Rash, Swelling. Allergy/Immun Denies: Allergic reaction, Anaphylaxis, Hives, I tching, Rhinorrhea, Sneezing. Neurologic Denies: Abnormal movement, Bladder dysfu nction, Bowel dysfunction, Change LOC, Confusion, Dizziness, Focal weakness, Generalize d weakness, Headache, Lightheaded, Numbness, Problem walking, Seizure, Shaking, Slurred speech, Spinning sensation, Syncope, Tingling, Unable to speak, Vision change. Psychiatric Denies: Anxiety, Depression. Past Medical History - Adult Stated Complaint INFECTION IN LEFT FOOT Allergies Coded Allergies: No Known Allergies (10/08/19) Home Medications Active Scripts SULFAMETHOXAZOLE/TMP (BACTRIM DS 800/160 MG) 1 T AB PO Q12H SULFAMETHOXAZOLE/TMP (BACTRIM DS 800/160 MG) 1 TAB PO Q12H #14 TABS Prov: 02/27/20 CEPHALEXIN (KEFLEX) 500 MG PO Q6H CEPHALEXIN (KEFLEX) 500 MG PO Q6H #28 CAPS Prov: 02/27/20 metFORMIN (GLUCOPHAGE) 1,000 MG PO BID metFORMIN (GLUCOPHAGE) 1,000 MG PO BID #60 TABS Prov: 02/27/20 Reported Medications metFORMIN (GLUCOPHAGE) 1,000 BID CIPROFLOXACIN (CIPRO) 500 MG PO Q12H metFORMIN (GLUCOPHAGE) 500 MG PO DAILY Past Medical History: Reports: Diabetes mellitus (BS 168 MG/DL LAST PM ). Additional Medical History [place] in 2003 Additional Surgical History None Drug Use Denies recreational drugs Smoking status: Smoking status for patients 13 years old or old er: Current every day smoker Other Social History Hx of substance and alcohol abuse Physical Exam Vital Signs Review of Vital Signs Reviewed Basic Physical Exam Basic PE GEN: Well appearing /NAD, HEAD: Atraumatic/NC, EYES: PERRL, conj clear, ENT: Membranes moist, NECK: Supple, RESP: No res p distress, CV: Reg rate rhythm, ABD: Soft/non-tender, NEURO: kvng rt oriented, NEURO: gross movement NL, PSYCH: NL thought content Physical Exam General/Const General/Const Awake, Alert, No acute distress MS Head Head Atraumatic, Normocephalic Eyes Eyes Atraumatic, PERRL, EOMI Ears/Nose/Throat Ears/Nose/Throat Atraumatic, Airway patent, Muc ous membranes moist MS Neck Neck Atraumatic, Supple, No meningismus Resp/Chest Respiratory/Chest Atraumatic, Breath sounds NL, Breath sounds = bilat Cardiovascular Cardiovascular Heart rate NL, Regular rhythm, H eart sounds NL Abdomen/GI Abdomen/GI Atraumatic, Soft, Non-tender MS Back Back Atraumatic, Inspection NL, Full range of m otion Lymphatic Lymphatic No gross adenopathy, No cervical saw opathy MS Upper Extrem Upper Extremity/MS Atraumatic, Inspection NL, F ull range of motion MS Wrist/Hand Wrist/Hand Atraumatic, Inspection NL, Full rang e of motion MS Lower Extrem Lower Ext/Pelvis/MS Atraumatic, Inspection NL, Full range of motion MS Ankle/Foot Text/Dict Notes L foot ulcer on ball of foot [id number] wit h scattered ulcer throughout the foot. Patient with R foot ulcer small than the left with scattered ulceration of the toes Skin Text/Dict Notes As noted above patient has ulceration Neurologic Neurologic Oriented X3, Speech NL, No motor def icits Psychiatric Psychiatric Affect NL, Mood NL Interpretation Diagnostics Lab Results Interpretation Considerations Independ review imaging, Reviewed prior records Lab Statement Laboratory studies reviewed and considered in th e medical decision-making. Imaging Statement Radiographic studies reviewed and considered in the medical decision-making. Lab Imaging Statement Laboratory radiographic studies reviewed and con sidered in the medical decision-making. Re-Evaluation MDM Free Text MDM Notes Free Text MDM Notes We will admit patient for diabetes managment and debridement of diabetic foot ulcers. Xray did no show osteomyelitis. Defer fu rther workup for podiatry. Consultation Consultation Referral/Consult Name Obed Lopez DPVasquez Torch Brazer Called Podiatry Requested Call Time 165 Requested Call Date 06/28/20 Call Returned Call returned Call Returned Time 165 Call Returned Date 06/28/20 Torch Brazer Will see patient Patient Discharge Departure Disposition Decision Admit Admit Physician Name Nathanael Laureano Rasheed 06/28/20 1716: Physical Exam Vital Signs Vital Signs First Documented: Result Date Time O2 Delivery Room air 06/28 1458 Pulse Ox 97 06/28 1503 Temp 37.4 06/28 1503 Pulse 109 06/28 1503 Resp 18 06/28 1503 B/P 129/81 06/28 1504 B/P Mean 97.0 06/28 1504 Last Documented: Result Date Time B/P 129/81 06/28 1504 B/P Mean 97.0 06/28 1504 Pulse 106 06/28 1504 Resp 18 06/28 1504 Pulse Ox 97 06/28 1503 Temp 37.4 06/28 1503 O2 Delivery Room air 06/28 1458 Physical Exam MS Ankle/Foot Text/Dict Notes left foot ulcer. some r foot ulcer. Interpretation Diagnostics Lab Results Interpretation Results Laboratory Tests 06/28/20 1527: [Embedded Image Not Available] Laboratory Tests: 06/28 06/28 06/28 1537 1527 1527 Chemistry Sodium (137 - 145 mmol/L) 130 L Potassium (3.4 - 5.0 mmol/L) 4.6 Chloride (98 - 107 mmol/L) 93 L Carbon Dioxide (22 - 30 mmol/L) 29 BUN (9 - 20 mg/dL) 13 Creatinine (0.7 - 1.3 mg/dL) 0.7 Glomerular Filtr Rate (>60) 125 Glucose (74 - 106 mg/dL) 404 *H Lactic Acid (0.7 - 2.0 mmol/L) 1.7 Calcium (8.4 - 10.2 mg/dL) 9.1 Total Bilirubin (0.2 - 1.3 mg/dL) 0.3 Conjugated Bilirubin (0 - 0.3 mg/dL) 0 Unconjugated Bilirubin (0 - 1.1 mg/dL) 0.1 AST (15 - 46 U/L) 26 ALT (0 - 34 U/L) 13 Total Alk Phosphatase (38 - 126 U/L) 100 Total Protein (6.3 - 8.2 g/dL) 7.7 Albumin (3.5 - 5.0 g/dL) 3.9 Hematology WBC (5.0 - 12.0 x10 3/uL) 7.6 RBC (4.70 - 6.10 x10 6/uL) 4.52 L Hgb (14.0 - 18.0 g/dL) 13.1 L Hct (37.0 - 49.0 %) 39.6 MCV (80 - 94 fL) 88 MCH (27 - 31 pg) 29.0 MCHC (33 - 37 g/dL) 33.1 RDW (11.5 - 15.5 %) 12.2 Plt Count (130 - 400 x10 3/uL) 484 H MPV (9.4 - 16.4 fL) 9.6 Neut % (Auto) (43 - 65 %) 74.7 H Lymph % (Auto) (20.5 - 45.5 %) 17.3 L [place] % (Auto) (5.5 - 11.7 %) 6.0 Eos % (Auto) (0.9 - 2.9 %) 0.9 Baso % (Auto) (0.2 - 1.0 %) 0.7 Neut # (Auto) (2.2 - 4.8 x10 3/uL) 5.68 H Lymph # (Auto) (1.3 - 2.9 x10 3/uL) 1.32 [place] # (Auto) (0.3 - 0.8 x10 3/uL) 0.46 Eos # (Auto) (0.0 - 0.2 x10 3/uL) 0.07 Baso # (Auto) (0.0 - 0.1 x10 3/uL) 0.05 Immature Gran % (0.0 - 2.0 %) 0.4 Nucleated RBC % (0 - 1.0 %) 0.0 Urines Urine Color (Yellow) Yellow Urine Appearance (Clear) Clear Urine pH (5.0 - 8.0) 5.0 Ur Specific [place] (<1.030) 1.029 Urine Protein (Negative mg/dL) 30 (1+) H Urine Glucose (UA) (Negative) >=500 (3+) H Urine Ketones (Negative mg/dL) Negative Urine Blood (Negative) 1+ H Urine Nitrite (Negative) Negative Urine Bilirubin (Negative) Negative Urine Urobilinogen (Negative mg/dL) 2.0 H Ur Leukocyte Esterase (Negative) NEGATIVE Urine RBC (<4 - 5 /HPF) 4-5 H Urine WBC (<4 - 5 /HPF) 0-3 Ur Squamous Epith Cells (0 - 5 (RARE) /HPF) 0-5 (RARE) Urine Bacteria (None - Rare /HPF) None Microbiology: Date/Time Procedure - Status Source Growth 06/28 1528 Blood Culture - RECD BLOOD 06/28 1527 Blood Culture - RECD BLOOD Recent Impressions: RADIOLOGY - XR CHEST 1 V 06/28 1530 Report Impression - Status: SIGNED Entered: 06/28/2020 1539 IMPRESSION: No acute abnormality identified. Impression By: [email or web address] - Richard Linda M.D. RADIOLOGY - XR FOOT 3 + V LT 06/28 1648 Report Impression - Status: SIGNED Entered: 06/28/2020 1703 IMPRESSION: No radiographic evidence of osteomyelitis. If in dicated, a bone scan or MRI are more sensitive for the detection of o steomyelitis. Impression By: [email or web address] - Michael Bai MD Re-Evaluation MDM Free Text MDM Notes Free Text MDM Notes xray did not show osteo. ED Course Medication(s) Ordered Medication(s) Ordered: Anti-Infective Agents Sig/Bita Start time Last Medication Dose Route Stop Time Status Admin Ampicillin Sodium/ 3 GM X1ED STA 06/28 1500 DC 06/28 Sulbactam Sodium IV 06/28 1529 1523 Sodium Chloride 100 ML Electrolytic, Caloric, And Glo Sig/Bita Start time Last Medication Dose Route Stop Time Status Admin Sodium Chloride 10 ML ASDIR PRN 06/28 1800 AC IV 06/29 0540 Sodium Chloride 250 ML ASDIR PRN 06/28 1800 AC IV 06/29 0540 Lactated Ringer's 1,000 ML X1ED STA 06/28 1500 DC 06/28 IV 06/28 1559 1523 Gastrointestinal Drugs Sig/Bita Start time Last Medication Dose Route Stop Time Status Admin Ondansetron HCl 4 MG Q4H PRN PRN 06/28 1751 AC IV 06/29 0549 Other Sig/Bita Start time Last Medication Dose Route Stop Time Status Admin Sodium Chloride 5 ML Q12HR 06/28 2100 AC IV 06/29 0240 Sodium Chloride 5 ML ASDIR PRN 06/28 1800 AC IV 06/29 0540 Patient Discharge Departure Vital Signs/Condition Vital Signs First Documented: Result Date Time O2 Delivery Room air 06/28 1458 Pulse Ox 97 06/28 1503 Temp 37.4 06/28 1503 Pulse 109 06/28 1503 Resp 18 06/28 1503 B/P 129/81 06/28 1504 B/P Mean 97.0 06/28 1504 Last Documented: Result Date Time B/P 129/81 06/28 1504 B/P Mean 97.0 06/28 1504 Pulse 106 06/28 1504 Resp 18 06/28 1504 Pulse Ox 97 06/28 1503 Temp 37.4 06/28 1503 O2 Delivery Room air 06/28 1458 All vital signs available at the time of this en try have been reviewed. Clinical Impression Clinical Impression Primary Impression: Diabetic foot ulcer associated with diabetes mellitus due to underlying condition Ruled Out Impressions: Diabetic foot ulcer Time of Impression 1748 Disposition Decision Admit Admit Physician Name Pavel Muñoz Sunitha BAILEY Admit Physician Hospitalist Request Time 1748 Request Date 06/28/20 )( Admission Accepts Yes )( Accepted Time 1748 )( Accepted Date 06/28/20 Call Information will see patient Discharge/Care Plan Admit Note I have spoken with the patie nt and/or caregivers. I have explained the patient's condition, diagnoses and lindsay atment plan based on the information available to me at this time. I have answered the patient's and/ or caregiver's questions and addressed any concerns. The patient and/or careg anil have as good an understanding of the patient 's diagnosis, condition and treatment plan as can be expected at this point. The patient has been stabilized within the capability of the emergency department. The patient wi ll be transported for further care and management or will be moved to an observation or inpatient service. I have communicated with the staff or medical p ractitioner taking over this patient's care. Supervising Physician Note Resident Saw Pt This patient was seen by a resident. I have pers onally seen the patient, performed the critical or vernon portions o f the service, and participated in the management of the patient. I have review ed and agree with the resident's note, and I have reviewed all labs , ECGs, and imaging studies or reports. I agree with this resident's findings, exam and plan. Electronically Signed by Giovany Landa MD R1 on at 2008 RPT #:[id number] END OF REPORT 2020-06-28 16:47:00-00:00 [facility] ([facility]) EMERGENCY PROVIDER REPORT REPORT#:[id number] REPORT STATUS: Signed DATE:06/28/20 TIME: 1646 PATIENT: HARJINDER COLUNGA UNIT #: [id number] [address] AGE: 55 SEX: M PCP PHYS: No Primary or Family Ph ysician SERVICE AUTHOR: Giovany Landa MD R1 * ALL edits or amendments must be made on the [employer]/computer document * Giovany Landa V 06/28/20 1647: HPI-General Illness Free Text HPI Notes Free Text HPI Notes 55M PMH diabetes, smoking pr esents with left foot wound. He has neuropathy. The woman he is living with told him he had blood on his socks. He took off the socks and she noticed the wounds. The pa breana says he recently switched shoes. He has an ulcer on the ball of the foot. The patient denies any fevers, chills, nausea, vomitting. He denies any pain to the are a. General Initial Greet Date/Time 06/28/20 8345 Presentation Chief Complaint Diabetic foot wound Hx Obtained From Patient Sudden in Onset? Yes Onset Occurred Days ago Symptom Duration Since onset Progression since Onset Unchanged Caused by No trauma by history Location Foot R, Foot L Exacerbated by Nothing Relieved by Nothing Review of Systems ROS Statements All systems rev neg except as marked. Complete sys rev neg except as marked. Review of Systems Constitutional Denies: Chills, Fatigue, Fever. Eyes Denies: Blurred R, Blurred L. Ears/Nose/Throat Denies: Mouth pain, Nasal co ngestion, Nose bleeding, Sinus problem, Sore throat, Throat pain, Throat swelling. Respiratory Denies: Cough, non-productive, Cough, productive , Dyspnea on exertion, Hemoptysis, Parox nocturnal dyspnea, Pleuritic p ain, Shortness of breath, Wheezing. Cardiovascular Denies: Chest pain, Dyspnea on exertion, Edema, Orthopnea, Palpitations, Parox nocturnal dyspnea, Syncope. GI Denies: Abdominal pain, Constipation, Diarrhea, Nausea, Vomiting. Male Denies: Dysuria, Flank pain. Musculoskeletal Reports: Extremity swelling. Denies: Back pain, Extremity pain, Joint pain, Joint swelling. Hematologic Denies: Adenopathy, Bleeding, Bruising, Petechia e. Endocrine Denies: Cold intolerance, Heat intolerance, Poly dipsia, Polyphagia. Skin Reports: Abscess, Laceration. Denies: Abrasion, Burn, Contusion, Diaphoresis, Erythema, Rash, Swelling. Allergy/Immun Denies: Allergic reaction, Anaphylaxis, Hives, I tching, Rhinorrhea, Sneezing. Neurologic Denies: Abnormal movement, Bladder dysfu nction, Bowel dysfunction, Change LOC, Confusion, Dizziness, Focal weakness, Generalize d weakness, Headache, Lightheaded, Numbness, Problem walking, Seizure, Shaking, Slurred speech, Spinning sensation, Syncope, Tingling, Unable to speak, Vision change. Psychiatric Denies: Anxiety, Depression. Past Medical History - Adult Stated Complaint INFECTION IN LEFT FOOT Allergies Coded Allergies: No Known Allergies (10/08/19) Home Medications Active Scripts SULFAMETHOXAZOLE/TMP (BACTRIM DS 800/160 MG) 1 T AB PO Q12H SULFAMETHOXAZOLE/TMP (BACTRIM DS 800/160 MG) 1 TAB PO Q12H #14 TABS Prov: 02/27/20 CEPHALEXIN (KEFLEX) 500 MG PO Q6H CEPHALEXIN (KEFLEX) 500 MG PO Q6H #28 CAPS Prov: 02/27/20 metFORMIN (GLUCOPHAGE) 1,000 MG PO BID metFORMIN (GLUCOPHAGE) 1,000 MG PO BID #60 TABS Prov: 02/27/20 Reported Medications metFORMIN (GLUCOPHAGE) 1,000 BID CIPROFLOXACIN (CIPRO) 500 MG PO Q12H metFORMIN (GLUCOPHAGE) 500 MG PO DAILY Past Medical History: Reports: Diabetes mellitus (BS 168 MG/DL LAST PM ). Additional Medical History [place] in 2003 Additional Surgical History None Drug Use Denies recreational drugs Smoking status: Smoking status for patients 13 years old or old er: Current every day smoker Other Social History Hx of substance and alcohol abuse Physical Exam Vital Signs Review of Vital Signs Reviewed Basic Physical Exam Basic PE GEN: Well appearing /NAD, HEAD: Atraumatic/NC, EYES: PERRL, conj clear, ENT: Membranes moist, NECK: Supple, RESP: No res p distress, CV: Reg rate rhythm, ABD: Soft/non-tender, NEURO: kvng rt oriented, NEURO: gross movement NL, PSYCH: NL thought content Physical Exam General/Const General/Const Awake, Alert, No acute distress MS Head Head Atraumatic, Normocephalic Eyes Eyes Atraumatic, PERRL, EOMI Ears/Nose/Throat Ears/Nose/Throat Atraumatic, Airway patent, Muc ous membranes moist MS Neck Neck Atraumatic, Supple, No meningismus Resp/Chest Respiratory/Chest Atraumatic, Breath sounds NL, Breath sounds = bilat Cardiovascular Cardiovascular Heart rate NL, Regular rhythm, H eart sounds NL Abdomen/GI Abdomen/GI Atraumatic, Soft, Non-tender MS Back Back Atraumatic, Inspection NL, Full range of m otion Lymphatic Lymphatic No gross adenopathy, No cervical saw opathy MS Upper Extrem Upper Extremity/MS Atraumatic, Inspection NL, F ull range of motion MS Wrist/Hand Wrist/Hand Atraumatic, Inspection NL, Full rang e of motion MS Lower Extrem Lower Ext/Pelvis/MS Atraumatic, Inspection NL, Full range of motion MS Ankle/Foot Text/Dict Notes L foot ulcer on ball of foot [id number] wit h scattered ulcer throughout the foot. Patient with R foot ulcer small than the left with scattered ulceration of the toes Skin Text/Dict Notes As noted above patient has ulceration Neurologic Neurologic Oriented X3, Speech NL, No motor de ficits Psychiatric Psychiatric Affect NL, Mood NL Interpretation Diagnostics Lab Results Interpretation Considerations Independ review imaging, Reviewed prior records Results Laboratory Tests 06/28/20 1527: [Embedded Image Not Available] Laboratory Tests: 06/28 06/28 06/28 1537 1527 1527 Chemistry Sodium (137 - 145 mmol/L) 130 L Potassium (3.4 - 5.0 mmol/L) 4.6 Chloride (98 - 107 mmol/L) 93 L Carbon Dioxide (22 - 30 mmol/L) 29 BUN (9 - 20 mg/dL) 13 Creatinine (0.7 - 1.3 mg/dL) 0.7 Glomerular Filtr Rate (>60) 125 Glucose (74 - 106 mg/dL) 404 *H Lactic Acid (0.7 - 2.0 mmol/L) 1.7 Calcium (8.4 - 10.2 mg/dL) 9.1 Total Bilirubin (0.2 - 1.3 mg/dL) 0.3 Conjugated Bilirubin (0 - 0.3 mg/dL) 0 Unconjugated Bilirubin (0 - 1.1 mg/dL) 0.1 AST (15 - 46 U/L) 26 ALT (0 - 34 U/L) 13 Total Alk Phosphatase (38 - 126 U/L) 100 Total Protein (6.3 - 8.2 g/dL) 7.7 Albumin (3.5 - 5.0 g/dL) 3.9 Hematology WBC (5.0 - 12.0 x10 3/uL) 7.6 RBC (4.70 - 6.10 x10 6/uL) 4.52 L Hgb (14.0 - 18.0 g/dL) 13.1 L Hct (37.0 - 49.0 %) 39.6 MCV (80 - 94 fL) 88 MCH (27 - 31 pg) 29.0 MCHC (33 - 37 g/dL) 33.1 RDW (11.5 - 15.5 %) 12.2 Plt Count (130 - 400 x10 3/uL) 484 H MPV (9.4 - 16.4 fL) 9.6 Neut % (Auto) (43 - 65 %) 74.7 H Lymph % (Auto) (20.5 - 45.5 %) 17.3 L [place] % (Auto) (5.5 - 11.7 %) 6.0 Eos % (Auto) (0.9 - 2.9 %) 0.9 Baso % (Auto) (0.2 - 1.0 %) 0.7 Neut # (Auto) (2.2 - 4.8 x10 3/uL) 5.68 H Lymph # (Auto) (1.3 - 2.9 x10 3/uL) 1.32 [place] # (Auto) (0.3 - 0.8 x10 3/uL) 0.46 Eos # (Auto) (0.0 - 0.2 x10 3/uL) 0.07 Baso # (Auto) (0.0 - 0.1 x10 3/uL) 0.05 Immature Gran % (0.0 - 2.0 %) 0.4 Nucleated RBC % (0 - 1.0 %) 0.0 Urines Urine Color (Yellow) Yellow Urine Appearance (Clear) Clear Urine pH (5.0 - 8.0) 5.0 Ur Specific [place] (<1.030) 1.029 Urine Protein (Negative mg/dL) 30 (1+) H Urine Glucose (UA) (Negative) >=500 (3+) H Urine Ketones (Negative mg/dL) Negative Urine Blood (Negative) 1+ H Urine Nitrite (Negative) Negative Urine Bilirubin (Negative) Negative Urine Urobilinogen (Negative mg/dL) 2.0 H Ur Leukocyte Esterase (Negative) NEGATIVE Urine RBC (<4 - 5 /HPF) 4-5 H Urine WBC (<4 - 5 /HPF) 0-3 Ur Squamous Epith Cells (0 - 5 (RARE) /HPF) 0-5 (RARE) Urine Bacteria (None - Rare /HPF) None Microbiology: Date/Time Procedure - Status Source Growth 06/28 1528 Blood Culture - RECD BLOOD 06/28 1527 Blood Culture - RECD BLOOD Recent Impressions: RADIOLOGY - XR CHEST 1 V 06/28 1530 Report Impression - Status: SIGNED Entered: 06/28/2020 1539 IMPRESSION: No acute abnormality identified. Impression By: [email or web address] - Richard Linda M.D. RADIOLOGY - XR FOOT 3 + V LT 06/28 1648 Report Impression - Status: SIGNED Entered: 06/28/2020 1703 IMPRESSION: No radiographic evidence of osteomyelitis. If in dicated, a bone scan or MRI are more sensitive for the detection of o steomyelitis. Impression By: [email or web address] - Michael Bai MD Lab Statement Laboratory studies reviewed and considered in th e medical decision-making. Imaging Statement Radiographic studies reviewed and considered in the medical decision-making. Lab Imaging Statement Laboratory radiographic studies reviewed and con sidered in the medical decision-making. Re-Evaluation MDM Free Text MDM Notes Free Text MDM Notes We will admit patient for diabetes managment and debridement of diabetic foot ulcers. Xray did no show osteomyelitis. Defer fu rther workup for podiatry. ED Course Medication(s) Ordered Medication(s) Ordered: Anti-Infective Agents Sig/Bita Start time Last Medication Dose Route Stop Time Status Admin Ampicillin Sodium/ 3 GM X1ED STA 06/28 1500 DC 06/28 Sulbactam Sodium IV 06/28 1529 1523 Sodium Chloride 100 ML Electrolytic, Caloric, And Glo Sig/Bita Start time Last Medication Dose Route Stop Time Status Admin Sodium Chloride 10 ML ASDIR PRN 06/28 1800 AC IV 06/29 0540 Sodium Chloride 250 ML ASDIR PRN 06/28 1800 AC IV 06/29 0540 Lactated Ringer's 1,000 ML X1ED STA 06/28 1500 DC 06/28 IV 06/28 1559 1523 Gastrointestinal Drugs Sig/Bita Start time Last Medication Dose Route Stop Time Status Admin Ondansetron HCl 4 MG Q4H PRN PRN 06/28 1751 AC IV 06/29 0549 Other Sig/Bita Start time Last Medication Dose Route Stop Time Status Admin Sodium Chloride 5 ML Q12HR 06/28 2100 AC 06/28 IV 06/29 0240 2124 Sodium Chloride 5 ML ASDIR PRN 06/28 1800 AC IV 06/29 0540 Consultation Consultation Referral/Consult Name Obed Lopez DPM Torch Brazer Called Podiatry Requested Call Time 165 Requested Call Date 06/28/20 Call Returned Call returned Call Returned Time 165 Call Returned Date 06/28/20 Torch Brazer Will see patient Patient Discharge Departure Disposition Decision Admit Admit Physician Name Nathanael Laureano Rasheed 06/28/20 1716: Physical Exam Vital Signs Vital Signs First Documented: Result Date Time O2 Delivery Room air 06/28 1458 Pulse Ox 97 /10 1503 Temp 37.4 10 1503 Pulse 109 /10 1503 Resp 18 06/28 1503 B/P 129/81 /10 1504 B/P Mean 97.0 06/28 1504 Last Documented: Result Date Time B/P 129/81 /10 1504 B/P Mean 97.0 06/28 1504 Pulse 106 /10 1504 Resp 18 06/28 1504 Pulse Ox 97 /10 1503 Temp 37.4 /10 1503 O2 Delivery Room air 06/28 1458 Physical Exam MS Ankle/Foot Text/Dict Notes left foot ulcer. some r foot ulcer. Re-Evaluation MDM Free Text MDM Notes Free Text MDM Notes xray did not show osteo. Patient Discharge Departure Vital Signs/Condition Vital Signs First Documented: Result Date Time O2 Delivery Room air 06/28 1458 Pulse Ox 97 /10 1503 Temp 37.4 10 1503 Pulse 109 03/10 1503 Resp 18 06/28 1503 B/P 129/81 /10 1504 B/P Mean 97.0 06/28 1504 Last Documented: Result Date Time B/P 129/81 /10 1504 B/P Mean 97.0 10 1504 Pulse 106 03/10 1504 Resp 18 10 1504 Pulse Ox 97 /10 1503 Temp 37.4 /10 1503 O2 Delivery Room air 06/28 1458 All vital signs available at the time of this en try have been reviewed. Clinical Impression Clinical Impression Primary Impression: Diabetic foot ulcer associated with diabetes mellitus due to underlying condition Ruled Out Impressions: Diabetic foot ulcer Time of Impression 1749 Disposition Decision Admit Admit Physician Name Mykel Muñ[place] Helton MD Admit Physician Hospitalist Request Time 1748 Request Date 06/28/20 )( Admission Accepts Yes )( Accepted Time 1748 )( Accepted Date 06/28/20 Call Information will see patient Discharge/Care Plan Admit Note I have spoken with the patie nt and/or caregivers. I have explained the patient's condition, diagnoses and lindsay atment plan based on the information available to me at this time. I have answered the patient's and/ or caregiver's questions and addressed any concerns. The patient and/or careg anil have as good an understanding of the patient 's diagnosis, condition and treatment plan as can be expected at this point. The patient has been stabilized within the capability of the emergency department. The patient wi ll be transported for further care and management or will be moved to an observation or inpatient service. I have communicated with the staff or medical p ractitioner taking over this patient's care. Supervising Physician Note Resident Saw Pt This patient was seen by a resident. I have pers onally seen the patient, performed the critical or vernon portions o f the service, and participated in the management of the patient. I have review ed and agree with the resident's note, and I have reviewed all labs , ECGs, and imaging studies or reports. I agree with this resident's findings, exam and plan. Electronically Signed by Giovany Landa MD R1 on at 2008 RPT #:[id number] END OF REPORT 2020-06-28 16:47:00-00:00 [facility] EMERGENCY PROVIDER REPORT REPORT#:[id number] REPORT STATUS: Signed DATE:06/28/20 TIME: 1646 PATIENT: HARJINDER COLUNGA UNIT #: [id number] ROOM/BED: [facility] AGE: 55 SEX: M PCP PHYS: No Primary or Family P hysician SERVICE AUTHOR: Giovany Landa MD R1 * ALL edits or amendments must be made on the el [employer]/computer document * Giovany Landa V 06/28/20 1647: HPI-General Illness Free Text HPI Notes Free Text HPI Notes 55M PMH diabetes, smoking pr esents with left foot wound. He has neuropathy. The woman he is living with told him he had blood on his socks. He took off the socks and she noticed the wounds. The pa breana says he recently switched shoes. He has an ulcer on the ball of the foot. The patient denies any fevers, chills, nausea, vomitting. He denies any pain to the are a. General Initial Greet Date/Time 06/28/20 3174 Presentation Chief Complaint Diabetic foot wound Hx Obtained From Patient Sudden in Onset? Yes Onset Occurred Days ago Symptom Duration Since onset Progression since Onset Unchanged Caused by No trauma by history Location Foot R, Foot L Exacerbated by Nothing Relieved by Nothing Review of Systems ROS Statements All systems rev neg except as marked. Complete sys rev neg except as marked. Review of Systems Constitutional Denies: Chills, Fatigue, Fever. Eyes Denies: Blurred R, Blurred L. Ears/Nose/Throat Denies: Mouth pain, Nasal co ngestion, Nose bleeding, Sinus problem, Sore throat, Throat pain, Throat swelling. Respiratory Denies: Cough, non-productive, Cough, productive , Dyspnea on exertion, Hemoptysis, Parox nocturnal dyspnea, Pleuritic p ain, Shortness of breath, Wheezing. Cardiovascular Denies: Chest pain, Dyspnea on exertion, Edema, Orthopnea, Palpitations, Parox nocturnal dyspnea, Syncope. GI Denies: Abdominal pain, Constipation, Diarrhea, Nausea, Vomiting. Male Denies: Dysuria, Flank pain. Musculoskeletal Reports: Extremity swelling. Denies: Back pain, Extremity pain, Joint pain, Joint swelling. Hematologic Denies: Adenopathy, Bleeding, Bruising, Petechia e. Endocrine Denies: Cold intolerance, Heat intolerance, Poly dipsia, Polyphagia. Skin Reports: Abscess, Laceration. Denies: Abrasion, Burn, Contusion, Diaphoresis, Erythema, Rash, Swelling. Allergy/Immun Denies: Allergic reaction, Anaphylaxis, Hives, I tching, Rhinorrhea, Sneezing. Neurologic Denies: Abnormal movement, Bladder dysfu nction, Bowel dysfunction, Change LOC, Confusion, Dizziness, Focal weakness, Generalize d weakness, Headache, Lightheaded, Numbness, Problem walking, Seizure, Shaking, Slurred speech, Spinning sensation, Syncope, Tingling, Unable to speak, Vision change. Psychiatric Denies: Anxiety, Depression. Past Medical History - Adult Stated Complaint INFECTION IN LEFT FOOT Allergies Coded Allergies: No Known Allergies (10/08/19) Home Medications Active Scripts SULFAMETHOXAZOLE/TMP (BACTRIM DS 800/160 MG) 1 T AB PO Q12H SULFAMETHOXAZOLE/TMP (BACTRIM DS 800/160 MG) 1 TAB PO Q12H #14 TABS Prov: 02/27/20 CEPHALEXIN (KEFLEX) 500 MG PO Q6H CEPHALEXIN (KEFLEX) 500 MG PO Q6H #28 CAPS Prov: 02/27/20 metFORMIN (GLUCOPHAGE) 1,000 MG PO BID metFORMIN (GLUCOPHAGE) 1,000 MG PO BID #60 TABS Prov: 02/27/20 Reported Medications metFORMIN (GLUCOPHAGE) 1,000 BID CIPROFLOXACIN (CIPRO) 500 MG PO Q12H metFORMIN (GLUCOPHAGE) 500 MG PO DAILY Past Medical History: Reports: Diabetes mellitus (BS 168 MG/DL LAST PM ). Additional Medical History [place] in 2003 Additional Surgical History None Drug Use Denies recreational drugs Smoking status: Smoking status for patients 13 years old or old er: Current every day smoker Other Social History Hx of substance and alcohol abuse Physical Exam Vital Signs Review of Vital Signs Reviewed Basic Physical Exam Basic PE GEN: Well appearing /NAD, HEAD: Atraumatic/NC, EYES: PERRL, conj clear, ENT: Membranes moist, NECK: Supple, RESP: No res p distress, CV: Reg rate rhythm, ABD: Soft/non-tender, NEURO: kvng rt oriented, NEURO: gross movement NL, PSYCH: NL thought content Physical Exam General/Const General/Const Awake, Alert, No acute distress MS Head Head Atraumatic, Normocephalic Eyes Eyes Atraumatic, PERRL, EOMI Ears/Nose/Throat Ears/Nose/Throat Atraumatic, Airway patent, Muc ous membranes moist MS Neck Neck Atraumatic, Supple, No meningismus Resp/Chest Respiratory/Chest Atraumatic, Breath sounds NL, Breath sounds = bilat Cardiovascular Cardiovascular Heart rate NL, Regular rhythm, H eart sounds NL Abdomen/GI Abdomen/GI Atraumatic, Soft, Non-tender MS Back Back Atraumatic, Inspection NL, Full range of m otion Lymphatic Lymphatic No gross adenopathy, No cervical saw opathy MS Upper Extrem Upper Extremity/MS Atraumatic, Inspection NL, F ull range of motion MS Wrist/Hand Wrist/Hand Atraumatic, Inspection NL, Full rang e of motion MS Lower Extrem Lower Ext/Pelvis/MS Atraumatic, Inspection NL, Full range of motion MS Ankle/Foot Text/Dict Notes L foot ulcer on ball of foot [id number] wit h scattered ulcer throughout the foot. Patient with R foot ulcer small than the left with scattered ulceration of the toes Skin Text/Dict Notes As noted above patient has ulceration Neurologic Neurologic Oriented X3, Speech NL, No motor def icits Psychiatric Psychiatric Affect NL, Mood NL Interpretation Diagnostics Lab Results Interpretation Considerations Independ review imaging, Reviewed prior records Results Laboratory Tests 06/28/20 1527: [Embedded Image Not Available] Laboratory Tests: 06/28 06/28 06/28 1537 1527 1527 Chemistry Sodium (137 - 145 mmol/L) 130 L Potassium (3.4 - 5.0 mmol/L) 4.6 Chloride (98 - 107 mmol/L) 93 L Carbon Dioxide (22 - 30 mmol/L) 29 BUN (9 - 20 mg/dL) 13 Creatinine (0.7 - 1.3 mg/dL) 0.7 Glomerular Filtr Rate (>60) 125 Glucose (74 - 106 mg/dL) 404 *H Lactic Acid (0.7 - 2.0 mmol/L) 1.7 Calcium (8.4 - 10.2 mg/dL) 9.1 Total Bilirubin (0.2 - 1.3 mg/dL) 0.3 Conjugated Bilirubin (0 - 0.3 mg/dL) 0 Unconjugated Bilirubin (0 - 1.1 mg/dL) 0.1 AST (15 - 46 U/L) 26 ALT (0 - 34 U/L) 13 Total Alk Phosphatase (38 - 126 U/L) 100 Total Protein (6.3 - 8.2 g/dL) 7.7 Albumin (3.5 - 5.0 g/dL) 3.9 Hematology WBC (5.0 - 12.0 x10 3/uL) 7.6 RBC (4.70 - 6.10 x10 6/uL) 4.52 L Hgb (14.0 - 18.0 g/dL) 13.1 L Hct (37.0 - 49.0 %) 39.6 MCV (80 - 94 fL) 88 MCH (27 - 31 pg) 29.0 MCHC (33 - 37 g/dL) 33.1 RDW (11.5 - 15.5 %) 12.2 Plt Count (130 - 400 x10 3/uL) 484 H MPV (9.4 - 16.4 fL) 9.6 Neut % (Auto) (43 - 65 %) 74.7 H Lymph % (Auto) (20.5 - 45.5 %) 17.3 L [place] % (Auto) (5.5 - 11.7 %) 6.0 Eos % (Auto) (0.9 - 2.9 %) 0.9 Baso % (Auto) (0.2 - 1.0 %) 0.7 Neut # (Auto) (2.2 - 4.8 x10 3/uL) 5.68 H Lymph # (Auto) (1.3 - 2.9 x10 3/uL) 1.32 [place] # (Auto) (0.3 - 0.8 x10 3/uL) 0.46 Eos # (Auto) (0.0 - 0.2 x10 3/uL) 0.07 Baso # (Auto) (0.0 - 0.1 x10 3/uL) 0.05 Immature Gran % (0.0 - 2.0 %) 0.4 Nucleated RBC % (0 - 1.0 %) 0.0 Urines Urine Color (Yellow) Yellow Urine Appearance (Clear) Clear Urine pH (5.0 - 8.0) 5.0 Ur Specific [place] (<1.030) 1.029 Urine Protein (Negative mg/dL) 30 (1+) H Urine Glucose (UA) (Negative) >=500 (3+) H Urine Ketones (Negative mg/dL) Negative Urine Blood (Negative) 1+ H Urine Nitrite (Negative) Negative Urine Bilirubin (Negative) Negative Urine Urobilinogen (Negative mg/dL) 2.0 H Ur Leukocyte Esterase (Negative) NEGATIVE Urine RBC (<4 - 5 /HPF) 4-5 H Urine WBC (<4 - 5 /HPF) 0-3 Ur Squamous Epith Cells (0 - 5 (RARE) /HPF) 0-5 (RARE) Urine Bacteria (None - Rare /HPF) None Microbiology: Date/Time Procedure - Status Source Growth 06/28 152 Blood Culture - RECD BLOOD 06/28 152 Blood Culture - RECD BLOOD Recent Impressions: RADIOLOGY - XR CHEST 1 V 06/28 1530 Report Impression - Status: SIGNED Entered: 06/28/2020 1539 IMPRESSION: No acute abnormality identified. Impression By: [email or web address] - Richard Linda M.D. RADIOLOGY - XR FOOT 3 + V LT 06/28 1648 Report Impression - Status: SIGNED Entered: 06/28/2020 1703 IMPRESSION: No radiographic evidence of osteomyelitis. If in dicated, a bone scan or MRI are more sensitive for the detection of o steomyelitis. Impression By: [email or web address] - Michael Bai MD Lab Statement Laboratory studies reviewed and considered in th e medical decision-making. Imaging Statement Radiographic studies reviewed and considered in the medical decision-making. Lab Imaging Statement Laboratory radiographic studies reviewed and con sidered in the medical decision-making. Re-Evaluation MDM Free Text MDM Notes Free Text MDM Notes We will admit patient for diabetes managment and debridement of diabetic foot ulcers. Xray did no show osteomyelitis. Defer fu rther workup for podiatry. ED Course Medication(s) Ordered Medication(s) Ordered: Anti-Infective Agents Sig/Bita Start time Last Medication Dose Route Stop Time Status Admin Ampicillin Sodium/ 3 GM X1ED STA 06/28 1500 DC 06/28 Sulbactam Sodium IV 06/28 1529 1523 Sodium Chloride 100 ML Electrolytic, Caloric, And Glo Sig/Bita Start time Last Medication Dose Route Stop Time Status Admin Sodium Chloride 10 ML ASDIR PRN 06/28 1800 AC IV 06/29 0540 Sodium Chloride 250 ML ASDIR PRN 06/28 1800 AC IV 06/29 0540 Lactated Ringer's 1,000 ML X1ED STA 06/28 1500 DC 06/28 IV 06/28 1559 1523 Gastrointestinal Drugs Sig/Bita Start time Last Medication Dose Route Stop Time Status Admin Ondansetron HCl 4 MG Q4H PRN PRN 06/28 1751 AC IV 06/29 0549 Other Sig/Bita Start time Last Medication Dose Route Stop Time Status Admin Sodium Chloride 5 ML Q12HR 06/28 2100 AC /10 IV 06/29 0240 2124 Sodium Chloride 5 ML ASDIR PRN 10 1800 AC IV 06/29 0540 Consultation Consultation Referral/Consult Name Obed Lopez DPM Torch Brazer Called Podiatry Requested Call Time 2481 Requested Call Date 06/28/20 Call Returned Call returned Call Returned Time 1657 Call Returned Date 06/28/20 Torch Brazer Will see patient Patient Discharge Departure Disposition Decision Admit Admit Physician Name Nathanael Laureano Rasheed 06/28/20 1716: Physical Exam Vital Signs Vital Signs First Documented: Result Date Time O2 Delivery Room air 06/28 1458 Pulse Ox 97 03/10 1503 Temp 37.4 03/10 1503 Pulse 109 03/10 1503 Resp 18 03/10 1503 B/P 129/81 03/10 1504 B/P Mean 97.0 03/10 1504 Last Documented: Result Date Time B/P 129/81 03/10 1504 B/P Mean 97.0 /10 1504 Pulse 106 03/10 1504 Resp 18 /10 1504 Pulse Ox 97 03/10 1503 Temp 37.4 03/10 1503 O2 Delivery Room air 06/28 1458 Physical Exam MS Ankle/Foot Text/Dict Notes left foot ulcer. some r foot ulcer. Re-Evaluation MDM Free Text MDM Notes Free Text MDM Notes xray did not show osteo. Patient Discharge Departure Vital Signs/Condition Vital Signs First Documented: Result Date Time O2 Delivery Room air 06/28 1458 Pulse Ox 97 03/10 1503 Temp 37.4 /10 1503 Pulse 109 03/10 1503 Resp 18 03/10 1503 B/P 129/81 03/10 1504 B/P Mean 97.0 03/10 1504 Last Documented: Result Date Time B/P 129/81 /10 1504 B/P Mean 97.0 03/10 1504 Pulse 106 03/10 1504 Resp 18 /10 1504 Pulse Ox 97 /10 1503 Temp 37.4 03/10 1503 O2 Delivery Room air 06/28 1458 All vital signs available at the time of this en try have been reviewed. Clinical Impression Clinical Impression Primary Impression: Diabetic foot ulcer associated with diabetes mellitus due to underlying condition Ruled Out Impressions: Diabetic foot ulcer Time of Impression 174 Disposition Decision Admit Admit Physician Name Pavel Muñoz MD Admit Physician Hospitalist Request Time 174 Request Date 06/28/20 )( Admission Accepts Yes )( Accepted Time 174 )( Accepted Date 06/28/20 Call Information will see patient Discharge/Care Plan Admit Note I have spoken with the patie nt and/or caregivers. I have explained the patient's condition, diagnoses and lindsay atment plan based on the information available to me at this time. I have answered the patient's and/ or caregiver's questions and addressed any concerns. The patient and/or careg anil have as good an understanding of the patient 's diagnosis, condition and treatment plan as can be expected at this point. The patient has been stabilized within the capability of the emergency department. The patient wi ll be transported for further care and management or will be moved to an observation or inpatient service. I have communicated with the staff or medical p racsamsoner taking over this patient's care. Supervising Physician Note Resident Saw Pt This patient was seen by a resident. I have pers onally seen the patient, performed the critical or vernon portions o f the service, and participated in the management of the patient. I have review ed and agree with the resident's note, and I have reviewed all labs , ECGs, and imaging studies or reports. I agree with this resident's findings, exam and plan. Electronically Signed by Giovany Landa MD R1 on at 2009 Electronically Signed by Wojciech Dolan DO on 03/11 at 0035 RPT #:[id number] END OF REPORT 2020-06-28 15:11:00-00:00 [facility] EMERGENCY PROVIDER REPORT REPORT#:[id number] REPORT STATUS: Signed DATE:06/28/20 TIME: 151 PATIENT: HARJINDER COLUNGA UNIT #: [id number] ROOM/BED: [address] AGE: 55 SEX: M PCP PHYS: No Primary or Family Ph ysician SERVICE AUTHOR: Mi Ellis POOL TABLE OPERATOR * ALL edits or amendments must be made on the [employer]/computer document * Provider in Triage - Adult Provider in Triage Initial Greet Date/Time 06/28/20 2196 Greet Note I have greeted and performed a focused rapid initial assessment of this patient. A comprehensive ED assessment and evaluation of the patient, analysis of all test results, and completion of the medical deci michael-making process will be conducted by additional ED providers. MSE Not Complete The medical screening exam i s not complete. Further evaluation and/or treatment is required. The patient will be re-directed to the emergency department. Free Text PIT Notes Free Text PIT Notes 55-year-old male presents ER with complaints of a wound to the left foot. The patient states that he is legally blind and is u nsure how long the wound has been there. The wound was found by a caregiver f or his fianc . Patient states he has a past medical history of diabetes but he does not take medication. Patient denies any fever, chills. States that he is dressed the wound and cleaned it with peroxide but family states it is getting larger. The wound is locate d on the left foot underneath the great toe and the great toe. No PCP. PMH-Provider in Triage Stated Complaint INFECTION IN LEFT FOOT Allergies Coded Allergies: No Known Allergies (10/08/19) Home Medications Active Scripts SULFAMETHOXAZOLE/TMP (BACTRIM DS 800/160 MG) 1 T AB PO Q12H SULFAMETHOXAZOLE/TMP (BACTRIM DS 800/160 MG) 1 TAB PO Q12H #14 TABS Prov: 02/27/20 CEPHALEXIN (KEFLEX) 500 MG PO Q6H CEPHALEXIN (KEFLEX) 500 MG PO Q6H #28 CAPS Prov: 02/27/20 metFORMIN (GLUCOPHAGE) 1,000 MG PO BID metFORMIN (GLUCOPHAGE) 1,000 MG PO BID #60 TABS Prov: 02/27/20 Reported Medications metFORMIN (GLUCOPHAGE) 1,000 BID CIPROFLOXACIN (CIPRO) 500 MG PO Q12H metFORMIN (GLUCOPHAGE) 500 MG PO DAILY Past Medical History: Reports: Diabetes mellitus (BS 168 MG/DL LAST PM ). Additional Medical History [place] in 2003 Additional Surgical History None Patient History FATHER, . Family History: Heart disease MOTHER Family History: Diabetes Family History: Heart disease Drug Use Denies recreational drugs Smoking status: Smoking status for patients 13 years old or old er: Current every day smoker Other Social History Hx of substance and alcohol abuse Electronically Signed by Mi Ellis NP on at 6033 at 1468 RPT #:[id number] END OF REPORT 2020-06-28 15:11:00-00:00 [facility] ([facility]) EMERGENCY PROVIDER REPORT REPORT#:[id number] REPORT STATUS: Signed DATE:06/28/20 TIME: 1511 PATIENT: HARJINDER COLUNGA UNIT #: [id number] ROOM/BED: AGE: 55 SEX: M PCP PHYS: No Primary or Family Ph ysician SERVICE DT: AUTHOR: Mi Ellis POOL TABLE OPERATOR * ALL edits or amendments must be made on the [employer]/computer document * Provider in Triage - Adult Provider in Triage Initial Greet Date/Time 06/28/20 6197 Greet Note I have greeted and performed a focused rapid initial assessment of this patient. A comprehensive ED assessment and evaluation of the patient, analysis of all test results, and completion of the medical deci michael-making process will be conducted by additional ED providers. MSE Not Complete The medical screening exam i s not complete. Further evaluation and/or treatment is required. The patient will be re-directed to the emergency department. Free Text PIT Notes Free Text PIT Notes 55-year-old male presents ER with complaints of a wound to the left foot. The patient states that he is legally blind and is u nsure how long the wound has been there. The wound was found by a caregiver f or his fianc . Patient states he has a past medical history of diabetes but he does not take medication. Patient denies any fever, chills. States that he is dressed the wound and cleaned it with peroxide but family states it is getting larger. The wound is locate d on the left foot underneath the great toe and the great toe. No PCP. PMH-Provider in Triage Stated Complaint INFECTION IN LEFT FOOT Allergies Coded Allergies: No Known Allergies (10/08/19) Home Medications Active Scripts SULFAMETHOXAZOLE/TMP (BACTRIM DS 800/160 MG) 1 T AB PO Q12H SULFAMETHOXAZOLE/TMP (BACTRIM DS 800/160 MG) 1 TAB PO Q12H #14 TABS Prov: 02/27/20 CEPHALEXIN (KEFLEX) 500 MG PO Q6H CEPHALEXIN (KEFLEX) 500 MG PO Q6H #28 CAPS Prov: 02/27/20 metFORMIN (GLUCOPHAGE) 1,000 MG PO BID metFORMIN (GLUCOPHAGE) 1,000 MG PO BID #60 TABS Prov: 02/27/20 Reported Medications metFORMIN (GLUCOPHAGE) 1,000 BID CIPROFLOXACIN (CIPRO) 500 MG PO Q12H metFORMIN (GLUCOPHAGE) 500 MG PO DAILY Past Medical History: Reports: Diabetes mellitus (BS 168 MG/DL LAST PM ). Additional Medical History [place] in 2003 Additional Surgical History None Patient History FATHER, . Family History: Heart disease MOTHER Family History: Diabetes Family History: Heart disease Drug Use Denies recreational drugs Smoking status: Smoking status for patients 13 years old or old er: Current every day smoker Other Social History Hx of substance and alcohol abuse Electronically Signed by Mi Ellis NP on at 1512 RPT #:[id number] END OF REPORT 2020-02-27 14:13:00-00:00 [facility] ([facility]) EMERGENCY PROVIDER REPORT REPORT#:[id number] REPORT STATUS: Signed DATE:02/27/20 TIME: 1413 PATIENT: HARJINDER COLUNGA UNIT #: [id number] ROOM/BED: AGE: 54 SEX: M PCP PHYS: No Primary or Family Ph ysician SERVICE AUTHOR: Rod Cerda NP * ALL edits or amendments must be made on the [employer]/computer document * HPI-Rash/Abscess/Cellulitis General Confirmed Patient Yes Patient Type New patient Initial Greet Date/Time 02/27/20 1402 Presentation Chief Complaint Red area, Sore Free Text HPI Notes Free Text HPI Notes 54-year-old male presents the ED for concern of a lesion to the right lower extremity. Patient denies known injury, insect b ite or previous problem to right lower extremity. States first noticed sore to the right posterior calf which yesterday developed increased erythema wit h slight drainage. Denies associated fever or other related symptoms or co mplaints. Review of Systems ROS Statements All systems rev neg except as marked. Focused Review of Systems Cardiovascular Denies: Chest pain, Syncope. GI Denies: Abdominal pain, Diarrhea, Nausea, Vomiti ng. Musculoskeletal Denies: Back pain, Extremity pain. Skin Reports: Abscess, Erythema. Past Medical History - Adult Stated Complaint BACK 0F LEG 9NFECTED Allergies Coded Allergies: No Known Allergies (10/08/19) Home Medications Reported Medications metFORMIN (GLUCOPHAGE) 1,000 BID CIPROFLOXACIN (CIPRO) 500 MG PO Q12H metFORMIN (GLUCOPHAGE) 500 MG PO DAILY Past Medical History: Reports: Diabetes mellitus (BS 168 MG/DL LAST PM ). Additional Medical History [place] in 2003 Additional Surgical History None Drug Use Denies recreational drugs Smoking status for patients 13 years old or olde r: Unknown,if ever smoked Other Social History Hx of substance and alcohol abuse Physical Exam Vital Signs Vital Signs First Documented: Result Date Time Pulse Ox 98 02/26 1358 B/P 130/65 02/26 1358 B/P Mean 86 02/26 135 O2 Delivery Room air 02/26 1358 Temp 36.7 02/26 1358 Pulse 96 02/26 1358 Resp 16 02/26 1358 Last Documented: Result Date Time Pulse Ox 98 02/26 1600 B/P 125/80 02/26 1600 B/P Mean 95 02/26 1600 O2 Delivery Room air 02/26 1600 Temp 36.7 02/26 1600 Pulse 89 02/26 1600 Resp 16 02/26 1600 Review of Vital Signs Reviewed Focused PE General/Const General/Const Awake, Alert, Well appearing Ears/Nose/Throat Ears/Nose/Throat Airway patent, Mucous membrane s moist, Pharynx NL Resp/Chest Respiratory/Chest Breath sounds NL, Breath soun ds = bilat, No respiratory distress, No rales, No rhonchi, No wheezing Cardiovascular Cardiovascular Heart rate NL, Regular rhythm, H eart sounds NL, Peripheral circulation NL MS Upper Extrem Upper Extremity/MS Inspection NL, No swelling, Non-tender, No erythema MS Lower Extrem Lower Ext/Pelvis/MS Inspection NL, No swelling, Non-tender, No erythema, Vascular intact, No edema Skin Skin Color NL, No rash, Warm, Dry Text/Dict Notes 3 cm lesion to right posterior calf, irregular b order, varying colors, circumferential erythema slight serous drainage. Neurologic Neurologic Oriented X3, Speech NL, No motor def icits, No sensory deficits Interpretation Diagnostics Lab Results Interpretation Results Laboratory Tests 02/27/20 1444: [Embedded Image Not Available] Laboratory Tests: 02/26 02/26 1444 1421 Chemistry Sodium (133 - 144 mmol/L) 127.0 L Potassium (3.5 - 5.1 mmol/L) 4.3 Chloride (95 - 105 mmol/L) 95 Carbon Dioxide (21 - 32 mmol/L) 27 Anion Gap (4.0 - 15.0 GAP calc) 5.0 BUN (7 - 18 MG/DL) 14 Creatinine (0.55 - 1.30 MG/DL) 0.95 Glucose (70 - 110 MG/DL) 427 *H POC Glucose (70 - 119 MG/DL) 459 *H Calcium (8.5 - 10.1 MG/DL) 9.1 Specimen Appearance (1 NORMAL Index/DL) 1 SARITA L <2 MG Specimen Hemolysis (1 NORMAL Index/DL) 2 TRACE 10-25 MG Recent Impressions: ULTRASOUND - [facility] 02/26 1518 Report Impression - Status: SIGNED Entered: 02/27/2020 1550 IMPRESSION: 1. Soft tissue edema without discrete dominant f luid collection or cystic or solid mass lesion. Impression By: [email or web address] - Donaldo Tang M.D. Lab Statement Laboratory studies reviewed and considered in doctors' hospital medical decision-making. Re-Evaluation MDM Re-Evaluation/Progress Re-Evaluation/Progress Text/Dict Note Patient refill provided for Metformin. Strict follow-up precautions for further evaluation of lesion to lower extremity followin g his treatment with oral antibiotics. Referral provided to [facility]. ED Course Medication(s) Ordered Medication(s) Ordered: Hormones And Synthetic Substit Sig/Bita Start time Last Medication Dose Route Stop Time Status Admin Insulin Human Lispro 10 UNIT X1ED STA 02/26 144 3 DC 02/26 SUBQ 02/26 1444 1500 Patient Discharge Departure Vital Signs/Condition Vital Signs First Documented: Result Date Time Pulse Ox 98 02/26 1358 B/P 130/65 02/26 1358 B/P Mean 86 02/26 1358 O2 Delivery Room air 02/26 1358 Temp 36.7 02/26 1358 Pulse 96 02/26 1358 Resp 16 02/26 1358 Last Documented: Result Date Time Pulse Ox 98 02/26 1600 B/P 125/80 02/26 1600 B/P Mean 95 02/26 1600 O2 Delivery Room air 02/26 1600 Temp 36.7 02/26 1600 Pulse 89 02/26 1600 Resp 16 02/26 1600 All vital signs available at the time of this en try have been reviewed. Condition Stable Clinical Impression Clinical Impression Primary Impression: Lesion of soft tissue of low er leg and ankle Secondary Impressions: Hyperglycemia Disposition Decision Discharge )( Discharged to Home Yes )( Time 1537 )( Date 02/27/20 Discharge/Care Plan Counseled Regarding Diagnosi s, Lab results, Imaging studies, Prescriptions, Need for follow-up, When to return to ED (Auto) Prescriptions Current Visit Scripts SULFAMETHOXAZOLE/TMP (BACTRIM DS 800/160 MG) 1 T AB PO Q12H SULFAMETHOXAZOLE/TMP (BACTRIM DS 800/160 MG) 1 TAB PO Q12H #14 TABS UNTIL FINISHED CEPHALEXIN (KEFLEX) 500 MG PO Q6H CEPHALEXIN (KEFLEX) 500 MG PO Q6H #28 CAPS metFORMIN (GLUCOPHAGE) 1,000 MG PO BID metFORMIN (GLUCOPHAGE) 1,000 MG PO BID #60 TABS TAKE WITH MEALS Patient Instructions ED Cellulitis Referrals [facility] Departure Forms WORK/SCHOOL EXCUSE VARIABLE Discharge Note I have spoken with the patie nt and/or caregivers. I have explained the patient's condition, diagnoses and lindsay atment plan based on the information available to me at this time. I have answered the patient's and/ or caregiver's questions and addressed any concerns. The patient and/or careg anil have as good an understanding of the patient 's diagnosis, condition and treatment plan as can be expected at this point. The vital signs have bee n stable. The patient's condition is stable and appr opriate for discharge from the emergency department. The patient will pursue further outpatient evalu ation with the primary care physician or other designated or consulting phys ician as outlined in the discharge instructions. The patient and/or caregivers are agreeable to this plan of care and follow-up instructions have been exp lained in detail. The patient and/or caregivers have received these instructio ns in written format and have expressed an understanding of the discharge inst ructions. The patient and/or caregivers are aware that any significant change in condition or worsening of symptoms should prompt an immediate return to [facility] or the closest emergency department or a call to 911. at 0750 RPT #:[id number] END OF REPORT 2020-02-27 14:13:00-00:00 [facility] ([facility]) EMERGENCY PROVIDER REPORT REPORT#:[id number] REPORT STATUS: Signed DATE:02/27/20 TIME: 1413 PATIENT: HARJINEDR COLUNGA UNIT #: [id number] ROOM/BED: AGE: 54 SEX: M PCP PHYS: No Primary or Family Ph ysician SERVICE AUTHOR: Rod Cerda POOL TABLE OPERATOR * ALL edits or amendments must be made on the [employer]/computer document * PrashantEctorVelasco 02/27/20 1413: HPI-Rash/Abscess/Cellulitis General Confirmed Patient Yes Patient Type New patient Presentation Chief Complaint Red area, Sore Free Text HPI Notes Free Text HPI Notes 54-year-old male presents the ED for concern of a lesion to the right lower extremity. Patient denies known injury, insect b ite or previous problem to right lower extremity. States first noticed sore to the right posterior calf which yesterday developed increased erythema wit h slight drainage. Denies associated fever or other related symptoms or co mplaints. Review of Systems ROS Statements All systems rev neg except as marked. Focused Review of Systems Cardiovascular Denies: Chest pain, Syncope. GI Denies: Abdominal pain, Diarrhea, Nausea, Vomiti ng. Musculoskeletal Denies: Back pain, Extremity pain. Skin Reports: Abscess, Erythema. Past Medical History - Adult Stated Complaint BACK 0F LEG 9NFECTED Allergies Coded Allergies: No Known Allergies (10/08/19) Home Medications Reported Medications metFORMIN (GLUCOPHAGE) 1,000 BID CIPROFLOXACIN (CIPRO) 500 MG PO Q12H metFORMIN (GLUCOPHAGE) 500 MG PO DAILY Past Medical History: Reports: Diabetes mellitus (BS 168 MG/DL LAST PM ). Additional Medical History [place] in 2003 Additional Surgical History None Drug Use Denies recreational drugs Smoking status for patients 13 years old or olde r: Unknown,if ever smoked Other Social History Hx of substance and alcohol abuse Physical Exam Vital Signs Vital Signs First Documented: Result Date Time Pulse Ox 98 02/26 1358 B/P 130/65 02/26 1358 B/P Mean 86 02/26 1358 O2 Delivery Room air 02/26 1358 Temp 98.1 02/26 1358 Pulse 96 02/26 1358 Resp 16 02/26 1358 Last Documented: Result Date Time Pulse Ox 98 02/26 1600 B/P 125/80 02/26 1600 B/P Mean 95 02/26 1600 O2 Delivery Room air 02/26 1600 Temp 98.0 11/08 1600 Pulse 89 02/26 1600 Resp 16 02/26 1600 Review of Vital Signs Reviewed Focused PE General/Const General/Const Awake, Alert, Well appearing Ears/Nose/Throat Ears/Nose/Throat Airway patent, Mucous membrane s moist, Pharynx NL Resp/Chest Respiratory/Chest Breath sounds NL, Breath soun ds = bilat, No respiratory distress, No rales, No rhonchi, No wheezing Cardiovascular Cardiovascular Heart rate NL, Regular rhythm, H eart sounds NL, Peripheral circulation NL MS Upper Extrem Upper Extremity/MS Inspection NL, No swelling, Non-tender, No erythema MS Lower Extrem Lower Ext/Pelvis/MS Inspection NL, No swelling, Non-tender, No erythema, Vascular intact, No edema Skin Skin Color NL, No rash, Warm, Dry Text/Dict Notes 3 cm lesion to right posterior calf, irregular b order, varying colors, circumferential erythema slight serous drainage. Neurologic Neurologic Oriented X3, Speech NL, No motor def icits, No sensory deficits Interpretation Diagnostics Lab Results Interpretation Results Laboratory Tests 02/27/20 1444: [Embedded Image Not Available] Laboratory Tests: 02/26 02/26 1444 1421 Chemistry Sodium (133 - 144 mmol/L) 127.0 L Potassium (3.5 - 5.1 mmol/L) 4.3 Chloride (95 - 105 mmol/L) 95 Carbon Dioxide (21 - 32 mmol/L) 27 Anion Gap (4.0 - 15.0 GAP calc) 5.0 BUN (7 - 18 MG/DL) 14 Creatinine (0.55 - 1.30 MG/DL) 0.95 Glucose (70 - 110 MG/DL) 427 *H POC Glucose (70 - 119 MG/DL) 459 *H Calcium (8.5 - 10.1 MG/DL) 9.1 Specimen Appearance (1 NORMAL Index/DL) 1 SARITA L <2 MG Specimen Hemolysis (1 NORMAL Index/DL) 2 TRACE 10-25 MG Recent Impressions: ULTRASOUND - [facility] 02/26 1518 Report Impression - Status: SIGNED Entered: 02/27/2020 7490 IMPRESSION: 1. Soft tissue edema without discrete dominant f luid collection or cystic or solid mass lesion. Impression By: [email or web address] - Donaldo Tang M.D. Lab Statement Laboratory studies reviewed and considered in th e medical decision-making. Re-Evaluation MDM Re-Evaluation/Progress Re-Evaluation/Progress Text/Dict Note Patient refill provided for Metformin. Strict follow-up precautions for further evaluation of lesion to lower extremity followin g his treatment with oral antibiotics. Referral provided to [facility]. ED Course Medication(s) Ordered Medication(s) Ordered: Hormones And Synthetic Substit Sig/Bita Start time Last Medication Dose Route Stop Time Status Admin Insulin Human Lispro 10 UNIT X1ED STA 02/26 144 3 DC 02/26 SUBQ 02/26 1444 1500 Patient Discharge Departure Vital Signs/Condition Vital Signs First Documented: Result Date Time Pulse Ox 98 02/26 1358 B/P 130/65 02/26 1358 B/P Mean 86 02/26 1358 O2 Delivery Room air 02/26 1358 Temp 98.1 02/26 1358 Pulse 96 02/26 1358 Resp 16 02/26 1358 Last Documented: Result Date Time Pulse Ox 98 02/26 1600 B/P 125/80 02/26 1600 B/P Mean 95 02/26 1600 O2 Delivery Room air 02/26 1600 Temp 98.0 02/26 1600 Pulse 89 02/26 1600 Resp 16 02/26 1600 All vital signs available at the time of this en try have been reviewed. Condition Stable Clinical Impression Clinical Impression Primary Impression: Lesion of soft tissue of low er leg and ankle Secondary Impressions: Hyperglycemia Disposition Decision Discharge )( Discharged to Home Yes )( Time 1537 )( Date 02/27/20 Discharge/Care Plan Counseled Regarding Diagnosi s, Lab results, Imaging studies, Prescriptions, Need for follow-up, When to return to ED (Auto) Prescriptions Current Visit Scripts SULFAMETHOXAZOLE/TMP (BACTRIM DS 800/160 MG) 1 T AB PO Q12H SULFAMETHOXAZOLE/TMP (BACTRIM DS 800/160 MG) 1 TAB PO Q12H #14 TABS UNTIL FINISHED CEPHALEXIN (KEFLEX) 500 MG PO Q6H CEPHALEXIN (KEFLEX) 500 MG PO Q6H #28 CAPS metFORMIN (GLUCOPHAGE) 1,000 MG PO BID metFORMIN (GLUCOPHAGE) 1,000 MG PO BID #60 TABS TAKE WITH MEALS Patient Instructions ED Cellulitis Referrals [facility] Departure Forms WORK/SCHOOL EXCUSE VARIABLE Discharge Note I have spoken with the patie nt and/or caregivers. I have explained the patient's condition, diagnoses and lindsay atment plan based on the information available to me at this time. I have answered the patient's and/ or caregiver's questions and addressed any concerns. The patient and/or careg anil have as good an understanding of the patient 's diagnosis, condition and treatment plan as can be expected at this point. The vital signs have bee n stable. The patient's condition is stable and appr opriate for discharge from the emergency department. The patient will pursue further outpatient evalu ation with the primary care physician or other designated or consulting phys ician as outlined in the discharge instructions. The patient and/or caregivers are agreeable to this plan of care and follow-up instructions have been exp lained in detail. The patient and/or caregivers have received these instructio ns in written format and have expressed an understanding of the discharge inst ructions. The patient and/or caregivers are aware that any significant change in condition or worsening of symptoms should prompt an immediate return to [facility] or the closest emergency department or a call to 911. René Peres 03/03/20 0310: HPI-Rash/Abscess/Cellulitis General Initial Greet Date/Time 02/27/20 1402 Re-Evaluation MDM Free Text MDM Notes Free Text MDM Notes Patient seen and evaluated with midlevel Agree with chart as documented unless noted othe rwise by me Patient well-appearing, nontoxic Tolerating p.o. and ambulatory in ED Stable for disposition home with close follow-up Patient updated and agreeable with plan Patient Discharge Departure Supervising Physician Note MidLv/Doc Saw Pt 2 I have personally interviewed and examined the p atient. All charts, labs, and imaging studies were reviewe d. I agree with this PA/sand screener findings, exam and plan. at 0750 at 0310 RPT #:[id number] END OF REPORT 2019-10-08 12:43:00-00:00 [facility] ([facility]) EMERGENCY PROVIDER REPORT REPORT#:[id number] REPORT STATUS: Signed DATE:10/08/19 TIME: 1243 PATIENT: HARJINDER COLUNGA UNIT #: [id number] ROOM/BED: AGE: 54 SEX: M PCP PHYS: No Primary or Family Ph ysician SERVICE AUTHOR: Brennan Dupont MD * ALL edits or amendments must be made on the [employer]/computer document * HPI-General Illness Free Text HPI Notes Free Text HPI Notes 54-year-old male history of diabetes, heart dise ase, who presents with right- sided flank pain. Patient states flank pain is b een worsening over last few days and thinks it is his kidneys. Patient state s he has not urinated today. Patient also has elevated blood sugar. Loulou dean has not taken his metformin for past week because he ran out. He is currently homeles s. Denies fever chills nausea vomiting. General Initial Greet Date/Time 10/08/19 1227 Presentation Chief Complaint Abdominal pain Review of Systems ROS Statements All systems rev neg except as marked. Past Medical History - Adult Stated Complaint BLOOD SUGARS UP AND KIDNEYS BOT ZACK ME Allergies Coded Allergies: No Known Allergies (10/08/19) Home Medications Reported Medications metFORMIN (GLUCOPHAGE) 1,000 BID CIPROFLOXACIN (CIPRO) 500 MG PO Q12H metFORMIN (GLUCOPHAGE) 500 MG PO DAILY Past Medical History: Reports: Diabetes mellitus (BS 168 MG/DL LAST PM ). Additional Medical History [place] in 2003 Additional Surgical History None Drug Use Denies recreational drugs Smoking status for patients 13 years old or olde r: Current every day smoker Other Social History Hx of substance and alcohol abuse Physical Exam Vital Signs Vital Signs First Documented: Result Date Time Pulse Ox 96 10/07 1223 B/P 150/84 10/07 1223 B/P Mean 106 10/07 1223 O2 Delivery Room air 10/07 1223 Temp 37.3 10/07 1223 Pulse 114 10/07 1223 Resp 16 10/07 1223 Last Documented: Result Date Time Pulse Ox 97 10/07 1430 B/P 149/72 10/07 1430 B/P Mean 97 10/07 1430 O2 Delivery Room air 10/07 1430 Temp 36.9 10/07 1430 Pulse 72 10/07 1430 Resp 16 10/07 1430 Review of Vital Signs Reviewed, Vital signs norm al Physical Exam General/Const Text/Dict Notes General: Disheveled appearance Head/Eyes: atraumatic, normocephalic, PERRL ENT: moist mucus membranes Neck: supple/symmetric w/o bruits Cardiovascular: regular rate rhythm w/o murmurs, rubs, gallops, or ectopy Respiratory: clear to auscultation bilat ; no resp distress or use of accessory muscles noted Abdomen: soft, NT/ND, normal bowel sounds, no he patosplenomegaly noted Extremities: w/o cyanosis, clubbing, edema, Musculoskeletal: normal inspection, normal tone Neuro/MARINE ELECTRICIAN HELPER: alert oriented x 3, nonfocal Skin: warm, dry, intact Psychiatric: normal affect, mood, speech pattern s, judgment Interpretation Diagnostics Lab Results Interpretation Results Laboratory Tests 10/08/19 1235: [Embedded Image Not Available] Laboratory Tests: 10/07 10/07 10/07 1606 1400 1235 Chemistry Sodium (128 - 145 mmol/L) 135 Potassium (3.5 - 5.1 mmol/L) 3.9 Chloride (98 - 107 mmol/L) 100.0 Carbon Dioxide (22 - 29 mmol/L) 23.6 Anion Gap (10 - 20 mmol/L) 15 BUN (7 - 22 mg/dL) 7 Creatinine (0.55 - 1.3 mg/dL) 1.00 BUN/Creatinine Ratio (10 - 20) 7.0 L Glucose (70 - 110 mg/dL) 355 H POC Glucose (74 - 106 mg/dL) 235 H Calcium (8.0 - 10.5 mg/dL) 7.8 L Total Bilirubin (0.2 - 1.2 mg/dL) 0.40 AST (10 - 39 U/L) 18 ALT (10 - 69 U/L) 13 Total Alk Phosphatase (50 - 139 U/L) 73 Total Protein (6.1 - 7.8 gram/dL) 6.5 Albumin (3.3 - 4.4 g/dL) 3.3 Globulin (1 - 10 G/DL) 3.2 Albumin/Globulin Ratio (0.75 - 1.50) 1.0 Hematology WBC (4.5 - 12.5 K/mm3) 5.7 RBC (4.0 - 5.8 mill/mm3) 4.29 Hgb (13.0 - 17.5 gram/dL) 12.8 L Hct (42.0 - 52.0 %) 38.3 L MCV (80 - 98 fL) 89.3 MCH (27.0 - 33.0 picogram) 29.8 MCHC (33.0 - 36.0 gram/dL) 33.4 RDW (11.6 - 16.2 %) 12.8 RDW Std Deviation (37.0 - 51.0 fL) 42.3 Plt Count (150 - 450 K/mm3) 302 MPV (6.7 - 11.0 fL) 9.4 Neut % (Auto) (39.0 - 69.0 %) 72.0 H Lymph % (Auto) (25.0 - 55.0 %) 16.6 L [place] % (Auto) (0.0 - 10.0 %) 6.5 Eos % (Auto) (0.0 - 5.0 %) 4.0 Baso % (Auto) (0.0 - 1.0 %) 0.2 Neut # (Auto) (1.8 - 7.7 K/mm3) 4.11 Lymph # (Auto) (1.0 - 5.0 K/mm3) 0.95 L [place] # (Auto) (0 - 0.8 K/mm3) 0.37 Eos # (Auto) (0.0 - 0.5 K/mm3) 0.23 Baso # (Auto) (0.0 - 0.2 K/mm3) 0.01 Add Manual Diff NO Urines Urine Color (YELLOW) YELLOW Urine Appearance (CLEAR) SLIGHTLY HAZY H Urine pH (5.0 - 8.0) 6.0 Ur Specific [place] (1.001 - 1.035) 1.020 Urine Protein (Neg - 15 mg/dL) 1+ Urine Glucose (UA) (NEGATIVE mg/dL) 300-500 (3+ ) Urine Ketones (NEGATIVE mg/dL) NEGATIVE Urine Blood (NEGATIVE) TRACE Urine Nitrite (NEGATIVE) NEGATIVE Urine Bilirubin (NEGATIVE) NEGATIVE Urine Urobilinogen (0.0 - 0.2 mg/dL) 0.2 Ur Leukocyte Esterase (NEGATIVE uL) NEGATIVE Urine RBC (0 - 5 per HPF) NONE SEEN Urine WBC (0 - 5 per HPF) 0-5 Ur Epithelial Cells (Few per HPF) Rare (0-1/hpf ) Urine Bacteria (NONE per HPF) TRACE Recent Impressions: CAT SCAN - CT ABD PELVIS W/O CONT 10/07 1452 Report Impression - Status: SIGNED Entered: 10/08/2019 1648 IMPRESSION: 1. No evidence of renal or ureteral stones or of obstructive uropathy. 2. No evidence of acute abdominal or pelvic abno rmalities. Location code: [facility] Impression By: Brenda Mcdaniel M.D. Re-Evaluation MDM Free Text MDM Notes Free Text MDM Notes Homeless male presents with right-sided flank pa in. Re-Evaluation/Progress #1 Text/Dict Note significant delay due to radiology read. pt stat es pain has subsided ED Course Medication(s) Ordered Medication(s) Ordered: Electrolytic, Caloric, And Glo Sig/Bita Start time Last Medication Dose Route Stop Time Status Admin Sodium Chloride 1,000 ML X1ED STA 10/07 1227 DC 10/07 IV 10/07 1228 1247 Hormones And Synthetic Substit Sig/Bita Start time Last Medication Dose Route Stop Time Status Admin Insulin Human Lispro 5 UNITS X1ED STA 10/07 142 9 DC 10/07 SUBQ 10/07 1430 1457 Patient Discharge Departure Vital Signs/Condition Vital Signs First Documented: Result Date Time Pulse Ox 96 10/07 1223 B/P 150/84 10/07 1223 B/P Mean 106 10/07 1223 O2 Delivery Room air 10/07 1223 Temp 37.3 10/07 1223 Pulse 114 10/07 1223 Resp 16 10/07 1223 Last Documented: Result Date Time Pulse Ox 97 10/07 1430 B/P 149/72 10/07 1430 B/P Mean 97 10/07 1430 O2 Delivery Room air 10/07 1430 Temp 36.9 10/07 1430 Pulse 72 10/07 1430 Resp 16 10/07 1430 All vital signs available at the time of this en try have been reviewed. Clinical Impression Clinical Impression Primary Impression: Flank pain Disposition Decision Discharge )( Discharged to Home Yes )( Time 1722 )( Date 10/08/19 Discharge/Care Plan Referrals Tu Herndon MD at 1723 RPT #:[id number] END OF REPORT
--- NOTE | 2022-09-05 21:00 | RAD REPORT ---
EXAM DESCRIPTION: RADChest Single View09/05/2022 8:43 pm CLINICAL HISTORY: hypotension COMPARISON: Chest Single View dated 08/20/2022; Chest Single View dated 08/15/2022; Chest Single View d ated 07/27/2022 TECHNIQUE: Portable AP view of the chest. FINDINGS: Right arm PICC in stable position. The lungs are clear. No pneumothorax or effusion. The c ardiomediastinal contours are unremarkable. IMPRESSION: No acute cardiopulmonary process.
--- NOTE | 2022-09-05 21:04 | RAD REPORT ---
EXAM DESCRIPTION: CT - Head Brain Wo Cont - 09/05/2022 8:33 pm CLINICAL HISTORY: NUMBNESS COMPARISON: Head Brain Wo Cont dated 07/27/2022 TECHNIQUE: Noncontrast head CT images ad were obtained without IV contrast. Multiplanar reformats we re generated and reviewed. All CT scans are performed using dose optimization technique as appropriate and may include automated exposure control or mA/KV adjustment according to patient size. FINDINGS: No intracranial hemorrhage, mass, or edema. Midline structures are unremarkable. Normal ventricular caliber for age. [place]vall-white matter differentiation is preserved, without evidence of acute infarct. No abnormal extra- axial fluid collections. Calcifications in the fourth ventricle and the are stable. Mastoid air cells and visualized portions of the paranasal sinuses are clear. No acute bony findings. IMPRESSION: No evidence of an acute intracranial process.
[2022-09-05 21:25] LABS: Absolute Lymphocytes (CBC) 1.3 K/uL (0.7-4.9); Hematocrit 30.5 % (39.6-49.0); MCV 85.6 fL (80-100); RBC Red Blood Cell Count 3.56 M/uL (4.33-5.43)
[2022-09-05 21:30] LABS: Protime INR 1.16
[2022-09-05 21:46] LABS: ALT/SGPT 36 U/L (16-61); AST/SGOT 17 U/L (15-37); Albumin 3.1 g/dL (3.4-5.0); Alkaline Phosphatase 93 U/L (45-117); BUN Blood Urea Nitrogen 26 mg/dL (7-18); Bicarbonate 24 mEq/L (21-32); Bilirubin Total 0.2 mg/dL (0.2-1.0); Glomerular Filtration Rate 73 ml/min (=/>90); Glucose Level 89 mg/dL (74-106); Magnesium 2.1 mg/dL (1.6-2.4); NT PRO-BNP 865 pg/mL (<125); Potassium 5.3 mEq/L (3.5-5.1); Protein, Total 7.4 g/dL (6.4-8.2); Sodium Level 133 mEq/L (136-145); Troponin High Sensitivity 4.8 pg/mL (<58.9)
[2022-09-05 21:49] LABS: Bilirubin Direct < 0.1 mg/dL (0-0.2); Bilirubin Indirect, Calculated ND mg/dL (0.2-0.8)
--- NOTE | 2022-09-05 22:15 | EDPHYS ---
Physician Documentation [facility] Name: Shivam Block Age: 57 yrs Sex: Male : 1965 Arrival Date: 09/05/2022 Time: 19:42 Bed 2 Private MD: ED Physician Juliocesra Saba HPI: 09/05 20:51 This 57 yrs old Male presents to ER via EMS with complaints of LOW BLOOD PRESSURE, sp3 General Weakness. 20:51 57-year-old male with history of diabetes, bilateral lower extremity amputations, sp3 atrial fibrillation, hypertension now presents to the ED with chief complaint "whole body numbness" and generalized weakness and near syncope. Patient states that this is happened in the past but normally self resolves. Today it did not and therefore he sought medical attention by activating EMS. He denies any headache, neck pain, shortness of breath, chest pain, abdominal pain, nausea, vomiting, diarrhea, rash, known sick contacts, fever, URI symptoms, travel history, or any other signs or symptoms on review of systems at this time. Symptoms are almost fully resolved at this time without any intervention. Patient is mainly concerned about any potential embolic event secondary to his atrial fibrillation causing a CVA or similar related pathology.. Historical: - Allergies: 19:56 Fish Containing Products; kd3 19:56 SEAFOOD; kd3 - Home Meds: 19:56 Amiodarone Oral [Active]; cephalexin Oral [Active]; atorvastatin oral [Active]; kd3 gabapentin oral [Active]; eloquis [Active]; lisinopril Oral [Active]; Metoprolol Tartrate Oral [Active]; sertraline oral [Active]; - PMHx: 19:56 Atrial fibrillation; diabetes mellitus; Hypertensive disorder; kd3 - PSHx: 19:56 bilateral BKA; kd3 - Immunization history:: Adult Immunizations up to date. - Social history:: Smoking status: Patient reports the use of cigarette tobacco products, smokes one pack cigarettes per day. ROS: 20:52 Constitutional: Negative for fever, chills, and weight loss, Eyes: Negative for injury, sp3 pain, redness, and discharge, ENT: Negative for injury, pain, and discharge, Neck: Negative for injury, pain, and swelling, Respiratory: Negative for shortness of breath, cough, wheezing, and pleuritic chest pain, Abdomen/GI: Negative for abdominal pain, nausea, vomiting, diarrhea, and constipation, Back: Negative for injury and pain, MS/Extremity: Negative for injury and deformity, Skin: Negative for injury, rash, and discoloration, Psych: Negative for depression, anxiety, suicide ideation, homicidal ideation, and hallucinations, Allergy/Immunology: Negative for hives, rash, and allergies, Endocrine: Negative for neck swelling, polydipsia, polyuria, polyphagia, and marked weight changes, Hematologic/Lymphatic: Negative for swollen nodes, abnormal bleeding, and unusual bruising. 20:52 All other systems are negative. Exam: 20:53 Constitutional: This is a well developed, well nourished patient who is awake, alert, sp3 and in no acute distress. Head/Face: Normocephalic, atraumatic. Eyes: Pupils equal round and reactive to light, extra-ocular motions intact. Lids and lashes normal. Conjunctiva and sclera are non-icteric and not injected. Cornea within normal limits. Periorbital areas with no swelling, redness, or edema. ENT: Nares patent. No nasal discharge, no septal abnormalities noted. External auditory canals are clear. Oropharynx with no redness, swelling, or masses, exudates, or evidence of obstruction, uvula midline. Mucous membranes moist. Neck: Trachea midline, no thyromegaly or masses palpated, and no cervical lymphadenopathy. Supple, full range of motion without nuchal rigidity, or vertebral point tenderness. No Meningismus. Chest/axilla: Normal chest wall appearance and motion. Nontender with no deformity. No lesions are appreciated. Cardiovascular: Regular rate and rhythm with a normal S1 and S2. No gallops, murmurs, or rubs. Normal PMI, no JVD. No pulse deficits. Respiratory: Lungs have equal breath sounds bilaterally, clear to auscultation and percussion. No rales, rhonchi or wheezes noted. No increased work of breathing, no retractions or nasal flaring. Abdomen/GI: Soft, non-tender, with normal bowel sounds. No distension or tympany. No guarding or rebound. No evidence of tenderness throughout. Back: No spinal tenderness. No costovertebral tenderness. Full range of motion. Skin: Warm, dry with normal turgor. Normal color with no rashes, no lesions, and no evidence of cellulitis. Psych: Awake, alert, with orientation to person, place and time. Behavior, mood, and affect are within normal limits. 20:53 ECG was reviewed by the Attending Physician. EKG demonstrates normal sinus rhythm at 62 bpm with leftward axis, right bundle branch block, nonspecific diffuse ST/T changes without evidence of acute ischemia. 20:53 Neuro: Patient has grossly normal neurological exam including two-point discrimination and pain and temperature differentiation. Motor function is normal in his revised anatomy. Mental status is also normal including memory.. Vital Signs: 19:52 BP 129 / 63; Pulse 63; Resp 18; Temp 98.1(O); Pulse Ox 98% on R/A; Weight 81.65 kg; kd3 21:01 BP 125 / 67; Pulse 58; Resp 19; Pulse Ox 96% on R/A; kd3 22:30 BP 126 / 66; Pulse 58; Resp 19; Pulse Ox 97% on R/A; kd3 NIH Stroke Scale Scores: 19:59 NIHSS Score: 1 kd3 MDM: 20:09 Patient medically screened. sp3 20:54 Data reviewed: vital signs, nurses notes, old medical records, lab test result(s), EKG, sp3 radiologic studies. ED course: 57-year-old male with vague symptoms including whole body numbness and generalized weakness. Patient appears to be back to his baseline status with his symptoms of resolving on their own. However we will still work patient up with EKG, chest x-ray, laboratory values, and CT scan of the head. Patient also has a PICC line in place for prior antibiotics that he needed which she is asking for removal which we are happy to comply if patient is discharged. I am not highly concerned for embolic event or ischemic events including TIA, CVA, or other bleeding event like ICH. Patient is not septic and I do not believe is having acute coronary syndrome, pulmonary embolism, axillar dissection or aneurysm or any other critical pathology at this time. If work-up is negative, we will safely discharge patient home. This plan has been communicated with the patient who is fully on board and agrees. All questions been answered with the family and we will reconvene once work-up is back for final disposition.. 22:11 ED course: CT scan negative, chest x-ray clear, laboratory values are normal with sp3 exception of mild elevation in BNP. Patient is back at baseline with no current symptoms. I do not believe his CHF is the cause of his symptoms and he is not short of breath at all. We will safely discharge him home with PCP follow-up. We will remove his PICC line prior to discharge.. 09/05 20:09 Order name: Basic Metabolic Panel; Complete Time: 22:08 3 09/05 20:09 Order name: CBC with Diff; Complete Time: 22:08 3 09/05 20:09 Order name: LFT's; Complete Time: 22:08 3 09/05 20:09 Order name: Magnesium; Complete Time: 22:08 [facility] 09/05 20:09 Order name: NT PRO-BNP; Complete Time: 22:08 [facility] 09/05 20:09 Order name: PT-INR; Complete Time: 22:08 3 09/05 20:09 Order name: Troponin HS; Complete Time: 22:08 [facility] 09/05 20:09 Order name: XRAY Chest (1 view); Complete Time: 22:08 3 09/05 20:09 Order name: CT Head Brain wo Cont; Complete Time: 22:08 3 09/05 20:09 Order name: EKG; Complete Time: 20:10 [facility] 09/05 20:09 Order name: Cardiac monitoring; Complete Time: 20:13 3 09/05 20:09 Order name: EKG - Nurse/Tech; Complete Time: 20:11 3 09/05 20:09 Order name: IV Saline Lock; Complete Time: 20:58 3 09/05 20:09 Order name: Labs collected and sent; Complete Time: 20:58 3 09/05 20:09 Order name: O2 Per Protocol; Complete Time: 20:58 3 09/05 20:09 Order name: O2 Sat Monitoring; Complete Time: 20:58 3 09/05 22:13 Order name: DC IV: DC PICC LINE; Complete Time: 22:27 sp3 Administered Medications: No medications were administered Disposition Summary: 09/05/22 22:14 Discharge Ordered Location: Home sp3 Condition: Stable sp3 Diagnosis - Generalized weakness sp3 Followup: sp3 - With: Private Physician - When: Upon discharge from the Emergency Department - Reason: Recheck today's complaints, Continuance of care Discharge Instructions: - Discharge Summary Sheet sp3 - Weakness sp3 Forms: - Medication Reconciliation Form sp3 - Thank You Letter sp3 - Antibiotic Education sp3 - Prescription Opioid Use sp3 NIH Stroke Scale - NIH Stroke Score Date: 09/05/2022 Time: 19:59 Total Score = 1 10. Dysarthria (speech clarity - read or repeat words) - 0(Normal) 11. Extinction and Inattention (visual/tactile/auditory/spatial/personal) - 0(No abnormality) 1a. Level of Consciousness (LOC) - 0(Alert) 1b. Level of Consciousness (LOC) (Month \\T\\ Age) - 0(Both) 1c. LOC Commands (Open \\T\\ Closes Eyes/Superior Court Clerk) - 0(Both) 2. Best Gaze (Lateral Gaze Paresis) - 0(Normal) 3. Visual Field Loss - 0(No visual loss) 4. Facial Palsy - 0(Normal) 5a. Left Arm: Motor (10-second hold) - 0(No drift) 5b. Right Arm: Motor (10-second hold) - 0(No drift) 6a. Left Leg: Motor (5-second hold - always test supine) - 0(No drift) 6b. Right Leg: Motor (5-second hold - always test supine) - 0(No drift) 7. Limb Ataxia (finger/nose \\T\\ heel/melendrez - test with eyes open) - 0(Absent) 8. Sensory Loss (pinprick arms/legs/face) - 1(Mild to moderate loss) 9. Best Language: Aphasia (description/naming/reading) - 0(No aphasia) Initials: kd3 Signatures: Dispatcher [employer] Julioceasr Jones MD MD sp3 Evelia Galan RN RN kd3
--- NOTE | 2022-09-05 22:15 | ER ---
Nurse's Notes [facility] Name: Shivam Block Age: 57 yrs Sex: Male : 1965 Arrival Date: 09/05/2022 Time: 19:42 Bed 2 Private MD: Diagnosis: Generalized weakness Presentation: 09/05 19:52 Chief complaint: EMS states: Pt started to feel numb and tingling sensation kd3 approximately 30 minutes prior to EMS arrival. Pt states that he feels like his heart if fluttering. Since arriving to the ED, pt states that his symptoms have improved but have not gone all the way away. He still feels weird and tingly. Coronavirus screen: Vaccine status: Patient reports being unvaccinated. Ebola Screen: No symptoms or risks identified at this time. Initial Sepsis Screen: Does the patient meet any 2 criteria? No. Patient's initial sepsis screen is negative. Does the patient have a suspected source of infection? No. Patient's initial sepsis screen is negative. Risk Assessment: Do you want to hurt yourself or someone else? Patient reports no desire to harm self or others. Onset of symptoms was September 05, 2022. 19:52 Method Of Arrival: EMS: [facility] kd3 19:52 Acuity: TERRANCE 3 kd3 Triage Assessment: 19:56 General: Appears in no apparent distress. Behavior is calm, cooperative. Pain: Denies kd3 pain. Neuro: Level of Consciousness is awake, alert, obeys commands, Oriented to person, place, time, situation. Cardiovascular: Patient's skin is warm and dry. Respiratory: Airway is patent Trachea midline Respiratory effort is even, unlabored, Respiratory pattern is regular, symmetrical. Historical: - Allergies: 19:56 Fish Containing Products; kd3 19:56 SEAFOOD; kd3 - Home Meds: 19:56 Amiodarone Oral [Active]; cephalexin Oral [Active]; atorvastatin oral [Active]; kd3 gabapentin oral [Active]; eloquis [Active]; lisinopril Oral [Active]; Metoprolol Tartrate Oral [Active]; sertraline oral [Active]; - PMHx: 19:56 Atrial fibrillation; diabetes mellitus; Hypertensive disorder; kd3 - PSHx: 19:56 bilateral BKA; kd3 - Immunization history:: Adult Immunizations up to date. - Social history:: Smoking status: Patient reports the use of cigarette tobacco products, smokes one pack cigarettes per day. Screenin:59 [facility] ED Fall Risk Assessment (Adult) History of falling in the last 3 months, kd3 including since admission No falls in past 3 months (0 pts) Confusion or Disorientation No (0 pts) Intoxicated or Sedated No (0 pts) Impaired Gait No (0 pts) Mobility Assist Device Used No (0 pt) Altered Elimination No (0 pt) Score/Fall Risk Level 0 - 2 = Low Risk Maintained a safe environment. Abuse screen: Denies threats or abuse. Denies injuries from another. Nutritional screening: No deficits noted. Tuberculosis screening: No symptoms or risk factors identified. Assessment: 22:28 General: Appears in no apparent distress. Behavior is calm, cooperative. Pain: Denies kd3 pain. Neuro: Level of Consciousness is awake, alert, obeys commands, Oriented to person, place, time, situation. Cardiovascular: Patient's skin is warm and dry. Respiratory: Airway is patent Trachea midline Respiratory effort is even, unlabored, Respiratory pattern is regular, symmetrical. GI: No deficits noted. 22:28 General: Picc line removed. Pressure held for 5 minutes. Clear Tegaderm with 2 2X2s kd3 applied. . Vital Signs: 19:52 BP 129 / 63; Pulse 63; Resp 18; Temp 98.1(O); Pulse Ox 98% on R/A; Weight 81.65 kg; kd3 21:01 BP 125 / 67; Pulse 58; Resp 19; Pulse Ox 96% on R/A; kd3 22:30 BP 126 / 66; Pulse 58; Resp 19; Pulse Ox 97% on R/A; kd3 NIH Stroke Scale Scores: 19:59 NIHSS Score: 1 kd3 ED Course: 19:48 Patient arrived in ED. [email or web address] 19:52 Evelia Galan, RN is Primary Nurse. kd3 19:56 Triage completed. kd3 19:56 Arm band placed on right wrist. EKG completed in triage. Results shown to MD. EKG kd3 completed in triage. Results shown to MD. 20:07 Juliocesar Saba MD is Attending Physician. sp3 20:34 CT Head Brain wo Cont In Process Unspecified. EDMS 20:45 XRAY Chest (1 view) In Process Unspecified. EDMS 20:59 Basic Metabolic Panel Sent. kd3 20:59 CBC with Diff Sent. kd3 20:59 LFT's Sent. kd3 20:59 Magnesium Sent. kd3 20:59 NT PRO-BNP Sent. kd3 20:59 PT-INR Sent. kd3 20:59 Troponin HS Sent. kd3 22:29 No provider procedures requiring assistance completed. PICC line D/C''d. kd3 22:30 Patient has correct armband on for positive identification. kd3 Administered Medications: No medications were administered Medication: 22:29 VIS not applicable for this client. kd3 Outcome: 22:14 Discharge ordered by MD. sp3 22:29 Discharged to home via wheelchair. kd3 22:29 Condition: stable 22:29 Discharge instructions given to patient, Instructed on discharge instructions, follow up and referral plans. Demonstrated understanding of instructions, follow-up care. 22:43 Patient left the ED. kd3 NIH Stroke Scale - NIH Stroke Score Date: 09/05/2022 Time: 19:59 Total Score = 1 10. Dysarthria (speech clarity - read or repeat words) - 0(Normal) 11. Extinction and Inattention (visual/tactile/auditory/spatial/personal) - 0(No abnormality) 1a. Level of Consciousness (LOC) - 0(Alert) 1b. Level of Consciousness (LOC) (Month \T\ Age) - 0(Both) 1c. LOC Commands (Open \T\ Closes Eyes/Respiratory Support Technician) - 0(Both) 2. Best Gaze (Lateral Gaze Paresis) - 0(Normal) 3. Visual Field Loss - 0(No visual loss) 4. Facial Palsy - 0(Normal) 5a. Left Arm: Motor (10-second hold) - 0(No drift) 5b. Right Arm: Motor (10-second hold) - 0(No drift) 6a. Left Leg: Motor (5-second hold - always test supine) - 0(No drift) 6b. Right Leg: Motor (5-second hold - always test supine) - 0(No drift) 7. Limb Ataxia (finger/nose \T\ heel/melendrez - test with eyes open) - 0(Absent) 8. Sensory Loss (pinprick arms/legs/face) - 1(Mild to moderate loss) 9. Best Language: Aphasia (description/naming/reading) - 0(No aphasia) Initials: kd3 Signatures: Dispatcher [employer] Juliocesar Jones MD MD sp3 Pat [email or web address] Evelia Galan RN RN kd3
[2022-09-05 22:50] VITALS: TEMP 98.1
[2022-09-05 22:53] VITALS: BP 126/66; O2SAT 97
--- NOTE | 2022-09-08 17:38 | EKG ---
Test Date: 2022-09-05 Test Time: 19:57:18 Visual Lead: ELEANOR MEASUREMENT RESULTS: Intervals: Rate: 62 [place]: 170 QRSD: 132 QT: 420 QTc: 426 [place]: P: 62 [place]: 170 QRS: 265 T: 52 INTERPRETIVE STATEMENTS: Normal sinus rhythm Right bundle branch block Septal infarct, age undetermined Inferior infarct, age undetermined Abnormal ECG Compared to ECG 08/15/2022 08:33:11 Fusion complex(es) no longer present Ventricular premature complex(es) no longer present Myocardial infarct finding still present Electronically Signed On 09-08-22 17:35:17 CDT by Natanael Watson
== END 2022-09-05 22:43 | disposition home or self-care (01) ==
LOC: ER 19:42
DX: R53.1 Weakness (principal); R55 Syncope and collapse; F17.210 Nicotine dependence, cigarettes, uncomplicated; E11.9 Type 2 diabetes mellitus without complications; I10 Essential (primary) hypertension; I48.91 Unspecified atrial fibrillation; Z79.01 Long term (current) use of anticoagulants; Z89.512 Acquired absence of left leg below knee; Z89.511 Acquired absence of right leg below knee; Z91.013 Allergy to seafood
CPT/HCPCS: 36415; 70450; 71045; 80048; 80076; 83735; 83880; 84484; 85025; 85610; 93005; 99284

== ENCOUNTER 2022-09-18 10:23 | Inpatient (IN) | payer OTHER ==
--- OUTSIDE RECORDS SUMMARY | 2022-09-18 10:44 | XMS REPORT | Continuity of Care Document ---
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 Medical Branch lancing 0 Yes 1{each} Take 1 Unive rs device/lanc 5-23 Each in ity o f ets 10:46: the [place] (ACCU-CHEK 19 morning Medica l SOFT DEV and 1 Each Branc h LANCETS at noon MISC) and 1 Each in the evening. Miscellaneo 2022-0 Yes Bilateral U nivers us Medical 5-23 prosthetic ity of Supply Misc 10:46: s - [facility] [place] 19 Medical Branch lancing 2022-0 Yes 1{each} Take 1 Unive rs device/lanc 5-23 Each in ity o f ets 10:46: the [place] (ACCU-CHEK 19 morning Medica l SOFT DEV and 1 Each Branc h LANCETS at noon MISC) and 1 Each in the evening. Miscellaneo 0 Yes Bilateral U nivers us Medical 5-23 prosthetic ity of Supply Misc 10:46: s - [facility] [place] 19 Medical Branch lancing 2022-0 Yes 1{each} Take 1 Unive rs device/lanc 5-23 Each in ity o f ets 10:46: the [place] (ACCU-CHEK 19 morning Medica l SOFT DEV and 1 Each Branc h LANCETS at noon MISC) and 1 Each in the evening. Miscellaneo 0 Yes Bilateral [facility] nivers us Medical 5-23 prosthetic ity of Supply Misc 10:46: s - [facility] [place] 19 Medical Branch lancing 2022-0 Yes 1{each} Take 1 Unive rs device/lanc 5-23 Each in ity o f ets 10:46: the [place] (ACCU-CHEK 19 morning Medica l SOFT DEV and 1 Each Branc h LANCETS at noon MISC) and 1 Each in the evening. Miscellaneo 2022-0 Yes Bilateral U nivers us Medical 5-23 prosthetic ity of Supply Misc 10:46: s - [facility] [place] [facility] 19 Medical Branch lancing 2022-0 Yes 1{each} Take 1 Unive rs device/lanc 5-23 Each in ity o f ets 10:46: the [place] (ACCU-CHEK 19 morning Medica l SOFT DEV and 1 Each Branc h LANCETS at noon MISC) and 1 Each in the evening. Miscellaneo 2022-0 Yes Bilateral U nivers us Medical 5-23 prosthetic ity of Supply Misc 10:46: s - [facility] [place] 19 Medical Branch lancing 2022-0 Yes 1{each} Take 1 Unive rs device/lanc 5-23 Each in ity o f ets 10:46: the [place] (ACCU-CHEK 19 morning Medica l SOFT DEV and 1 Each Branc h LANCETS at noon MIS) and 1 Each in the evening. SERTraline 2022-0 Yes [id number] 100mg Take 1 [facility] 100 mg 5-19 tablet by ity of tablet 00:00: mouth in [place] 00 the Medical morning. Branch SERTraline 2022-0 Yes [id number] 100mg Take 1 [facility] 100 mg 5-19 tablet by ity of tablet 00:00: mouth in [place] 00 the Medical morning. Branch SERTraline 2022-0 Yes [id number] 100mg Take 1 [facility] 100 mg 5-19 tablet by ity of tablet 00:00: mouth in [place] 00 the Medical morning. Branch SERTraline 2022-0 2023- No [id number] 100mg Take 1 [facility] 100 mg 5-19 05-25 tablet by ity of tablet 00:00: 00:00 mouth in [place] 00 :00 the Medical morning. Branch SERTraline 2022-0 3- No [id number] 100mg Take 1 [facility] 100 mg 5-19 05-25 tablet by ity of tablet 00:00: 00:00 mouth in [place] 00 :00 the Medical morning. Branch SERTraline 2022-0 3- No [id number] 100mg Take 1 [facility] 100 mg 5-19 05-25 tablet by ity of tablet 00:00: 00:00 mouth in [place] 00 :00 the Medical morning. Branch blood sugar 0 Yes [id number] Check U nivers diagnostic 5-18 blood ity of strip 00:00: sugar 2 [place] 00 times a Medical day. Branch E11.9. Brand per insurance. Uses ACCU-CHEK machine Lancets 2022-0 Yes [id number] Check Unive rs Misc 5-18 blood ity of 00:00: sugar 2 [place] 00 times a Medical day. Branch E11.9. Brand per insurance. amiodarone 2022-0 Yes [id number] 200mg Take 1 [facility] 200 mg 5-18 tablet by ity of tablet 00:00: mouth in [place] 00 the Medical morning. Branch apixaban 5 2022-0 Yes 5mg Take 1 Unive rs mg tablet 5-18 tablet by ity o f 00:00: mouth in [place] 00 the Medical morning Branch and 1 tablet in the evening. Indication s: ATRIAL FIBRILLATI ON atorvastati Yes [id number] 40mg Take 1 [facility] n 40 mg 5-18 tablet by ity of tablet 00:00: mouth at [place] [address] bedtime. Medical Branch lisinopriL Yes [id number] 2.5mg Take 1 [facility] 2.5 mg 5-18 tablet by ity of tablet 00:00: mouth in [place] 00 the Medical morning. Branch metoprolol Yes [id number] 25mg Take 1 U nivers tartrate 25 5-18 tablet by ity of mg tablet 00:00: mouth in [facility] the morning Branch and 1 tablet in the evening. blood sugar Yes [id number] Check U nivers diagnostic 5-18 blood ity of strip 00:00: sugar 2 [place] 00 times a Medical day. Branch E11.9. Brand per insurance. Uses ACCU-CHEK machine Lancets Yes [id number] Check Unive rs Misc 5-18 blood ity of 00:00: sugar 2 [place] 00 times a Medical day. Branch E11.9. Brand per insurance. amiodarone Yes [id number] 200mg Take 1 [facility] 200 mg 5-18 tablet by ity of tablet 00:00: mouth in [place] the morning. Branch apixaban 5 Yes 5mg Take 1 Unive rs mg tablet 5-18 tablet by ity o f 00:00: mouth in [place] the morning Branch and 1 tablet in the evening. Indication s: ATRIAL FIBRILLATI ON atorvastati Yes [id number] 40mg Take 1 [facility] n 40 mg 5-18 tablet by ity of tablet 00:00: mouth at [place] [address] bedtime. Medical Branch lisinopriL Yes [id number] 2.5mg Take 1 [facility] 2.5 mg 5-18 tablet by ity of tablet 00:00: mouth in [place] 00 the Medical morning. Branch metoprolol Yes [id number] 25mg Take 1 U nivers tartrate 25 5-18 tablet by ity of mg tablet 00:00: [place] 00 the Medical morning Branch and 1 tablet in the evening. blood sugar 2022-0 Yes [id number] Check U nivers diagnostic 5-18 blood ity of strip 00:00: sugar 2 [place] 00 times a Medical day. Branch E11.9. Brand per insurance. Uses ACCU-CHEK machine Lancets 2022-0 Yes [id number] Check Unive rs Misc 5-18 blood ity of 00:00: sugar 2 [place] 00 times a Medical day. Branch E11.9. Brand per insurance. amiodarone 2022-0 Yes [id number] 200mg Take 1 [facility] 200 mg 5-18 tablet by ity of tablet 00:00: mouth in [place] 00 the Medical morning. Branch apixaban 5 2022-0 Yes 5mg Take 1 Unive rs mg tablet 5-18 tablet by ity o f 00:00: mouth in [place] 00 the Medical morning Branch and 1 tablet in the evening. Indication s: ATRIAL FIBRILLATI ON atorvastati Yes [id number] 40mg Take 1 [facility] n 40 mg 5-18 tablet by ity of tablet 00:00: mouth at [place] [address] bedtime. Medical Branch lisinopriL 0 Yes [id number] 2.5mg Take 1 [facility] 2.5 mg 5-18 tablet by ity of tablet 00:00: mouth in [place] 00 the Medical morning. Branch metoprolol 0 Yes [id number] 25mg Take 1 U nivers tartrate 25 5-18 tablet by ity of mg tablet 00:00: mouth in [facility] s 00 the Medical morning Branch and 1 tablet in the evening. blood sugar 2022-0 Yes [id number] Check U nivers diagnostic 5-18 blood ity of strip 00:00: sugar 2 [place] 00 times a Medical day. Branch E11.9. Brand per insurance. Uses ACCU-CHEK machine Lancets 2022-0 Yes [id number] Check Unive rs Misc 5-18 blood ity of 00:00: sugar 2 [place] 00 times a Medical day. Branch E11.9. Brand per insurance. amiodarone 2022-0 Yes [id number] 200mg Take 1 [facility] 200 mg 5-18 tablet by ity of tablet 00:00: mouth in [place] 00 the Medical morning. Branch apixaban 5 2022-0 Yes 5mg Take 1 Unive rs mg tablet 5-18 tablet by ity o f 00:00: mouth in [place] 00 the morning Branch and 1 tablet in the evening. Indication s: ATRIAL FIBRILLATI ON atorvastati Yes [id number] 40mg Take 1 [facility] n 40 mg 5-18 tablet by ity of tablet 00:00: mouth at [place] [address] bedtime. Medical Branch divalproex Yes [id number] 250mg Take 1 [facility] ER 250 mg 5-18 tablet by ity o f 24 hr 00:00: mouth [place] tablet 00 every 24 Medical (twenty- Branch ur) hours. gabapentin Yes [id number] 300mg Take 1 [facility] 300 mg 5-18 capsule by ity of capsule 00:00: mouth in [place] 00 the morning Branch and 1 capsule at noon and 1 capsule in the evening. lisinopriL Yes [id number] 2.5mg Take 1 [facility] 2.5 mg 5-18 tablet by ity of tablet 00:00: mouth in [place] 00 the morning. Branch metoprolol Yes [id number] 25mg Take 1 U nivers tartrate 25 5-18 tablet by ity of mg tablet 00:00: mouth in [facility] the morning Branch and 1 tablet in the evening. blood sugar Yes [id number] Check U nivers diagnostic 5-18 blood ity of strip 00:00: sugar 2 [place] 00 times a Medical day. Branch E11.9. Brand per insurance. Uses ACCU-CHEK machine Lancets Yes [id number] Check Unive rs Misc 5-18 blood ity of 00:00: sugar 2 [place] 00 times a Medical day. Branch E11.9. Brand per insurance. amiodarone Yes [id number] 200mg Take 1 [facility] 200 mg 5-18 tablet by ity of tablet 00:00: mouth in [place] 00 the morning. Branch apixaban 5 Yes 5mg Take 1 Unive rs mg tablet 5-18 tablet by ity o f 00:00: mouth in [place] 00 the morning Branch and 1 tablet in the evening. Indication s: ATRIAL FIBRILLATI ON atorvastati Yes [id number] 40mg Take 1 [facility] n 40 mg 5-18 tablet by ity of tablet 00:00: mouth at [place] 00 bedtime. Medical Branch divalproex 2022-0 Yes [id number] 250mg Take 1 [facility] ER 250 mg 5-18 tablet by ity o f 24 hr 00:00: mouth [place] tablet 00 every 24 Medical ( Branch ur) hours. gabapentin 2022-0 Yes [id number] 300mg Take 1 [facility] 300 mg 5-18 capsule by ity of capsule 00:00: mouth in [place] 00 the morning Branch and 1 capsule at noon and 1 capsule in the evening. lisinopriL 0 Yes [id number] 2.5mg Take 1 [facility] 2.5 mg 5-18 tablet by ity of tablet 00:00: mouth in [place] 00 the morning. Branch metoprolol 0 Yes [id number] 25mg Take 1 U nivers tartrate 25 5-18 tablet by ity of mg tablet 00:00: mouth in [facility] s 00 the morning Branch and 1 tablet in the evening. blood sugar 0 Yes [id number] Check U nivers diagnostic 5-18 blood ity of strip 00:00: sugar 2 [place] 00 times a Medical day. Branch E11.9. Brand per insurance. Uses ACCU-CHEK machine Lancets 0 Yes [id number] Check Unive rs Misc 5-18 blood ity of 00:00: sugar 2 [place] 00 times a Medical day. Branch E11.9. Brand per insurance. amiodarone 0 Yes [id number] 200mg Take 1 [facility] 200 mg 5-18 tablet by ity of tablet 00:00: mouth in [place] 00 the Medical morning. Branch apixaban 5 0 Yes 5mg Take 1 Unive rs mg tablet 5-18 tablet by ity o f 00:00: mouth in [place] the morning Branch and 1 tablet in the evening. Indication s: ATRIAL FIBRILLATI ON atorvastati 2022-0 Yes [id number] 40mg Take 1 [facility] n 40 mg 5-18 tablet by ity of tablet 00:00: mouth at [place] 00 bedtime. Medical Branch divalproex 2022-0 Yes [id number] 250mg Take 1 [facility] ER 250 mg 5-18 tablet by ity o f 24 hr 00:00: mouth [place] tablet 00 every 24 Medical (twenty- Branch ur) hours. gabapentin 2022-0 Yes [id number] 300mg Take 1 [facility] 300 mg 5-18 capsule by ity of capsule 00:00: mouth in [place] 00 the Medical morning Branch and 1 capsule at noon and 1 capsule in the evening. lisinopriL 2022-0 Yes [id number] 2.5mg Take 1 [facility] 2.5 mg 5-18 tablet by ity of tablet 00:00: mouth in [place] 00 the morning. Branch metoprolol 2022-0 Yes [id number] 25mg Take 1 U nivers tartrate 25 5-18 tablet by ity of mg tablet 00:00: mouth in [facility] s 00 the Medical morning Branch and 1 tablet in the evening. blood sugar 2022-0 Yes [id number] Check U nivers diagnostic 5-18 blood ity of strip 00:00: sugar 2 [place] times a Medical day. Branch E11.9. Brand per insurance. Uses ACCU-CHEK machine Lancets 0 Yes [id number] Check Unive rs Misc 5-18 blood ity of 00:00: sugar 2 [place] times a Medical day. Branch E11.9. Brand per insurance. amiodarone 0 Yes [id number] 200mg Take 1 [facility] 200 mg 5-18 tablet by ity of tablet 00:00: mouth in [place] 00 the Medical morning. Branch apixaban 5 0 Yes 5mg Take 1 Unive rs mg tablet 5-18 tablet by ity o f 00:00: mouth in [place] 00 the morning Branch and 1 tablet in the evening. Indication s: ATRIAL FIBRILLATI ON atorvastati 2022-0 Yes [id number] 40mg Take 1 [facility] n 40 mg 5-18 tablet by ity of tablet 00:00: mouth at [place] 00 bedtime. Medical Branch divalproex 2022-0 Yes [id number] 250mg Take 1 [facility] ER 250 mg 5-18 tablet by ity o f 24 hr 00:00: mouth [place] tablet 00 every 24 Medical (twenty-fo Branch ur) hours. gabapentin 2022-0 Yes [id number] 300mg Take 1 [facility] 300 mg 5-18 capsule by ity of capsule 00:00: mouth in [place] 00 the morning Branch and 1 capsule at noon and 1 capsule in the evening. lisinopriL 2022-0 Yes [id number] 2.5mg Take 1 [facility] 2.5 mg 5-18 tablet by ity of tablet 00:00: mouth in [place] 00 the Medical morning. Branch metoprolol 2022-0 Yes [id number] 25mg Take 1 U nivers tartrate 25 5-18 tablet by ity of mg tablet 00:00: mouth in [facility] 00 the Medical morning Branch and 1 tablet in the evening. blood sugar 2022-0 Yes [id number] Check U nivers diagnostic 5-18 blood ity of strip 00:00: sugar 2 [place] 00 times a Medical day. Branch E11.9. Brand per insurance. Uses ACCU-CHEK machine Lancets Yes [id number] Check Unive rs Misc 5-18 blood ity of 00:00: sugar 2 [place] times a Medical day. Branch E11.9. Brand per insurance. amiodarone 2022-0 Yes [id number] 200mg Take 1 [facility] 200 mg 5-18 tablet by ity of tablet 00:00: mouth in [place] the morning. Branch apixaban 5 2022-0 Yes 5mg Take 1 Unive rs mg tablet 5-18 tablet by ity o f 00:00: mouth in [place] the morning Branch and 1 tablet in the evening. Indication s: ATRIAL FIBRILLATI ON atorvastati 2022-0 Yes [id number] 40mg Take 1 [facility] n 40 mg 5-18 tablet by ity of tablet 00:00: mouth at [place] [address] bedtime. Medical Branch divalproex 2022-0 Yes [id number] 250mg Take 1 [facility] ER 250 mg 5-18 tablet by ity o f 24 hr 00:00: mouth [place] tablet 00 every 24 Medical (twenty- Branch ur) hours. gabapentin 2022-0 Yes [id number] 300mg Take 1 [facility] 300 mg 5-18 capsule by ity of capsule 00:00: mouth in [place] the morning Branch and 1 capsule at noon and 1 capsule in the evening. lisinopriL 2022-0 Yes [id number] 2.5mg Take 1 [facility] 2.5 mg 5-18 tablet by ity of tablet 00:00: mouth in [place] 00 the morning. Branch metoprolol 2022-0 Yes [id number] 25mg Take 1 U nivers tartrate 25 5-18 tablet by ity of mg tablet 00:00: mouth in [facility] s 00 the Medical morning Branch and 1 tablet in the evening. blood sugar 2022-0 Yes [id number] Check U nivers diagnostic 5-18 blood ity of strip 00:00: sugar 2 [place] 00 times a Medical day. Branch E11.9. Brand per insurance. Uses ACCU-CHEK machine Lancets 2022-0 Yes [id number] Check Unive rs Misc 5-18 blood ity of 00:00: sugar 2 [place] 00 times a Medical day. Branch E11.9. Brand per insurance. amiodarone 2022-0 Yes [id number] 200mg Take 1 [facility] 200 mg 5-18 tablet by ity of tablet 00:00: mouth in [place] 00 the Medical morning. Branch apixaban 5 2022-0 Yes 5mg Take 1 Unive rs mg tablet 5-18 tablet by ity o f 00:00: mouth in [place] 00 the Medical morning Branch and 1 tablet in the evening. Indication s: ATRIAL FIBRILLATI ON atorvastati 0 Yes [id number] 40mg Take 1 [facility] n 40 mg 5-18 tablet by ity of tablet 00:00: mouth at [place] 00 bedtime. Medical Branch lisinopriL 0 Yes [id number] 2.5mg Take 1 [facility] 2.5 mg 5-18 tablet by ity of tablet 00:00: mouth in [place] 00 the Medical morning. Branch metoprolol 0 Yes [id number] 25mg Take 1 U nivers tartrate 25 5-18 tablet by ity of mg tablet 00:00: mouth in [facility] s 00 the Medical morning Branch and 1 tablet in the evening. blood sugar 2022-0 Yes [id number] Check U nivers diagnostic 5-18 blood ity of strip 00:00: sugar 2 [place] 00 times a Medical day. Branch E11.9. Brand per insurance. Uses ACCU-CHEK machine Lancets 2022-0 Yes [id number] Check Unive rs Misc 5-18 blood ity of 00:00: sugar 2 [place] 00 times a Medical day. Branch E11.9. Brand per insurance. amiodarone 2022-0 Yes [id number] 200mg Take 1 [facility] 200 mg 5-18 tablet by ity of tablet 00:00: mouth in [place] 00 the Medical morning. Branch apixaban 5 2023-0 Yes 5mg Take 1 Unive rs mg tablet 5-18 tablet by ity o f 00:00: mouth in [place] 00 the Medical morning Branch and 1 tablet in the evening. Indication s: ATRIAL FIBRILLATI ON atorvastati 0 Yes [id number] 40mg Take 1 [facility] n 40 mg 5-18 tablet by ity of tablet 00:00: mouth at [place] [address] bedtime. Medical Branch lisinopriL 2022-0 Yes [id number] 2.5mg Take 1 [facility] 2.5 mg 5-18 tablet by ity of tablet 00:00: mouth in [place] 00 the Medical morning. Branch metoprolol 0 Yes [id number] 25mg Take 1 U nivers tartrate 25 5-18 tablet by ity of mg tablet 00:00: mouth in [facility] the Medical morning Branch and 1 tablet in the evening. blood sugar 0 Yes [id number] Check U nivers diagnostic 5-18 blood ity of strip 00:00: sugar 2 [place] 00 times a Medical day. Branch E11.9. Brand per insurance. Uses ACCU-CHEK machine Lancets Yes [id number] Check Unive rs Misc 5-18 blood ity of 00:00: sugar 2 [place] 00 times a Medical day. Branch E11.9. Brand per insurance. amiodarone 0 Yes [id number] 200mg Take 1 [facility] 200 mg 5-18 tablet by ity of tablet 00:00: mouth in [place] the Medical morning. Branch apixaban 5 0 Yes 5mg Take 1 Unive rs mg tablet 5-18 tablet by ity o f 00:00: mouth in [place] the Medical morning Branch and 1 tablet in the evening. Indication s: ATRIAL FIBRILLATI ON atorvastati 2022-0 Yes [id number] 40mg Take 1 [facility] n 40 mg 5-18 tablet by ity of tablet 00:00: mouth at [place] [address] bedtime. Medical Branch lisinopriL 2022-0 Yes [id number] 2.5mg Take 1 [facility] 2.5 mg 5-18 tablet by ity of tablet 00:00: mouth in [place] 00 the Medical morning. Branch metoprolol 2022-0 Yes [id number] 25mg Take 1 U nivers tartrate 25 5-18 tablet by ity of mg tablet 00:00: mouth [place] 00 the Medical morning Branch and 1 tablet in the evening. blood sugar 2022-0 Yes [id number] Check U nivers diagnostic 5-18 blood ity of strip 00:00: sugar 2 [place] times a Medical day. Branch E11.9. Brand per insurance. Uses ACCU-CHEK machine Lancets 2022-0 Yes [id number] Check Unive rs Misc 5-18 blood ity of 00:00: sugar 2 [place] 00 times a Medical day. Branch E11.9. Brand per insurance. amiodarone 2022-0 Yes [id number] 200mg Take 1 [facility] 200 mg 5-18 tablet by ity of tablet 00:00: mouth in [place] 00 the Medical morning. Branch apixaban 5 2022-0 Yes 5mg Take 1 Unive rs mg tablet 5-18 tablet by ity o f 00:00: mouth in [place] 00 the Medical morning Branch and 1 tablet in the evening. Indication s: ATRIAL FIBRILLATI ON atorvastati Yes [id number] 40mg Take 1 [facility] n 40 mg 5-18 tablet by ity of tablet 00:00: mouth at [place] [address] bedtime. Medical Branch lisinopriL 0 Yes [id number] 2.5mg Take 1 [facility] 2.5 mg 5-18 tablet by ity of tablet 00:00: mouth in [place] 00 the Medical morning. Branch metoprolol 0 Yes [id number] 25mg Take 1 U nivers tartrate 25 5-18 tablet by ity of mg tablet 00:00: mouth in [facility] s 00 the Medical morning Branch and 1 tablet in the evening. blood sugar 2022-0 Yes [id number] Check U nivers diagnostic 5-18 blood ity of strip 00:00: sugar 2 [place] 00 times a Medical day. Branch E11.9. Brand per insurance. Uses ACCU-CHEK machine Lancets 2022-0 Yes [id number] Check Unive rs Misc 5-18 blood ity of 00:00: sugar 2 [place] 00 times a Medical day. Branch E11.9. Brand per insurance. amiodarone 2022-0 Yes [id number] 200mg Take 1 [facility] 200 mg 5-18 tablet by ity of tablet 00:00: mouth in [place] 00 the Medical morning. Branch apixaban 5 2022-0 Yes 5mg Take 1 Unive rs mg tablet 5-18 tablet by ity o f 00:00: mouth in [place] 00 the Medical morning Branch and 1 tablet in the evening. Indication s: ATRIAL FIBRILLATI ON atorvastati Yes [id number] 40mg Take 1 [facility] n 40 mg 5-18 tablet by ity of tablet 00:00: mouth at [place] [address] bedtime. Medical Branch lisinopriL 0 Yes [id number] 2.5mg Take 1 [facility] 2.5 mg 5-18 tablet by ity of tablet 00:00: mouth in [place] 00 the Medical morning. Branch metoprolol Yes [id number] 25mg Take 1 U nivers tartrate 25 5-18 tablet by ity of mg tablet 00:00: mouth in [facility] the Medical morning Branch and 1 tablet in the evening. blood sugar Yes [id number] Check U nivers diagnostic 5-18 blood ity of strip 00:00: sugar 2 [place] 00 times a Medical day. Branch E11.9. Brand per insurance. Uses ACCU-CHEK machine Lancets Yes [id number] Check Unive rs Misc 5-18 blood ity of 00:00: sugar 2 [place] 00 times a Medical day. Branch E11.9. Brand per insurance. amiodarone Yes [id number] 200mg Take 1 [facility] 200 mg 5-18 tablet by ity of tablet 00:00: mouth in [place] the morning. Branch apixaban 5 0 Yes 5mg Take 1 Unive rs mg tablet 5-18 tablet by ity o f 00:00: mouth in [place] the Medical morning Branch and 1 tablet in the evening. Indication s: ATRIAL FIBRILLATI ON atorvastati 0 Yes [id number] 40mg Take 1 [facility] n 40 mg 5-18 tablet by ity of tablet 00:00: mouth at [place] [address] bedtime. Medical Branch lisinopriL 0 Yes [id number] 2.5mg Take 1 [facility] 2.5 mg 5-18 tablet by ity of tablet 00:00: mouth in [place] 00 the Medical morning. Branch metoprolol 2022-0 Yes [id number] 25mg Take 1 U nivers tartrate 25 5-18 tablet by ity of mg tablet 00:00: mouth [place] 00 the Medical morning Branch and 1 tablet in the evening. blood sugar Yes [id number] Check U nivers diagnostic 5-18 blood ity of strip 00:00: sugar 2 [place] 00 times a Medical day. Branch E11.9. Brand per insurance. Uses ACCU-CHEK machine Lancets Yes [id number] Check Unive rs Misc 5-18 blood ity of 00:00: sugar 2 [place] 00 times a Medical day. Branch E11.9. Brand per insurance. amiodarone Yes [id number] 200mg Take 1 [facility] 200 mg 5-18 tablet by ity of tablet 00:00: mouth in [place] 00 the Medical morning. Branch apixaban 5 Yes 5mg Take 1 Unive rs mg tablet 5-18 tablet by ity o f 00:00: mouth in [place] 00 the Medical morning Branch and 1 tablet in the evening. Indication s: ATRIAL FIBRILLATI ON atorvastati Yes [id number] 40mg Take 1 [facility] n 40 mg 5-18 tablet by ity of tablet 00:00: mouth at [place] 00 bedtime. Medical Branch lisinopriL Yes [id number] 2.5mg Take 1 [facility] 2.5 mg 5-18 tablet by ity of tablet 00:00: mouth in [place] 00 the morning. Branch metoprolol Yes [id number] 25mg Take 1 U nivers tartrate 25 5-18 tablet by ity of mg tablet 00:00: mouth in [facility] s 00 the Medical morning Branch and 1 tablet in the evening. divalproex 2022-2022- No [id number] 250mg Take 1 [facility] ER 250 mg 5-18 05-25 tablet by ity of 24 hr 00:00: 00:00 mouth [place] tablet 00 :00 every 24 Medical (twenty-fo Branch ur) hours. gabapentin 2022-2022- No [id number] 300mg Take 1 [facility] 300 mg 5-18 05-25 capsule by ity of capsule 00:00: 00:00 mouth in [place] 00 :00 the Medical morning Branch and 1 capsule at noon and 1 capsule in the evening. divalproex 2022-0 2022- No [id number] 250mg Take 1 [facility] ER 250 mg 5-18 05-25 tablet by ity of 24 hr 00:00: 00:00 mouth [place] tablet 00 :00 every 24 Medical ( Branch ur) hours. gabapentin 2022-0 2022- No [id number] 300mg Take 1 [facility] 300 mg 5-18 05-25 capsule by ity of capsule 00:00: 00:00 mouth in [place] 00 :00 the Medical morning Branch and 1 capsule at noon and 1 capsule in the evening. divalproex 2022-0 2022- No [id number] 250mg Take 1 [facility] ER 250 mg 5-18 05-25 tablet by ity of 24 hr 00:00: 00:00 mouth [place] tablet 00 :00 every 24 Medical ( Branch ur) hours. gabapentin 2022-0 2022- No [id number] 300mg Take 1 [facility] 300 mg 5-18 05-25 capsule by ity of capsule 00:00: 00:00 mouth in [place] 00 :00 the Medical morning Branch and 1 capsule at noon and 1 capsule in the evening. calcium 2022-0 2022- Yes 500mg 500 mg, Unive rs [...] dose, On 08/14/22 at 0030, STAT divalproex 2022-0 Yes [id number] 250mg Take 1 [facility] ER 250 mg - tablet by ity o f 24 hr 00:00: mouth [place] tablet 00 every 24 Medical (twenty-fo Branch ur) hours. divalproex 2023-0 Yes [id number] 250mg Take 1 [facility] ER 250 mg 4-26 tablet by ity o f 24 hr 00:00: mouth [place] tablet 00 every 24 Medical (twenty-fo Branch ur) hours. divalproex 2023-0 Yes [id number] 250mg Take 1 [facility] ER 250 mg 4-26 tablet by ity o f 24 hr 00:00: mouth [place] tablet 00 every 24 Medical (twenty-fo Branch ur) hours. divalproex 2023-0 Yes [id number] 250mg Take 1 [facility] ER 250 mg 4-26 tablet by ity o f 24 hr 00:00: mouth [place] tablet 00 every 24 Medical (twenty-fo Branch ur) hours. divalproex 2023-0 Yes [id number] 250mg Take 1 [facility] ER 250 mg 4-26 tablet by ity o f 24 hr 00:00: mouth [place] tablet 00 every 24 Medical (twenty-fo Branch ur) hours. divalproex 2023-0 Yes [id number] 250mg Take 1 [facility] ER 250 mg 4-26 tablet by ity o f 24 hr 00:00: mouth [place] tablet 00 every 24 Medical (twenty-fo Branch ur) hours. divalproex 2023-0 Yes [id number] 250mg Take 1 [facility] ER 250 mg 4-26 tablet by ity o f 24 hr 00:00: mouth [place] tablet 00 every 24 Medical (twenty-fo Branch ur) hours. divalproex 2023-0 Yes [id number] 250mg Take 1 [facility] ER 250 mg 4-26 tablet by ity o f 24 hr 00:00: mouth [place] tablet 00 every 24 Medical (twenty-fo Branch ur) hours. divalproex 2023-0 Yes [id number] 250mg Take 1 [facility] ER 250 mg 4-26 tablet by ity o f 24 hr 00:00: mouth [place] tablet 00 every 24 Medical (twenty-fo Branch ur) hours. divalproex 2023-0 Yes [id number] 250mg Take 1 [facility] ER 250 mg 4-26 tablet by ity o f 24 hr 00:00: mouth [place] tablet 00 every 24 Medical (twenty-fo Branch ur) hours. divalproex 2023-0 Yes [id number] 250mg Take 1 [facility] ER 250 mg 4-26 tablet by ity o f 24 hr 00:00: mouth [place] tablet 00 every 24 Medical (twenty-fo Branch ur) hours. divalproex 2022-0 Yes [id number] 250mg Take 1 [facility] ER 250 mg 4-26 tablet by ity o f 24 hr 00:00: mouth [place] tablet 00 every 24 Medical (twenty-fo Branch ur) hours. divalproex 2022-0 3- No [id number] 250mg Take 1 [facility] ER 250 mg 4-26 05-18 tablet by ity of 24 hr 00:00: 00:00 mouth [place] tablet 00 :00 every 24 Medical (twenty-fo Branch ur) hours. lancing Yes 1{each} Take 1 Unive rs device/lanc 4-17 Each in ity [facility] ets 14:20: the [place] (ACCU-CHEK 29 morning Medica l SOFT DEV and 1 Each Branc h LANCETS at noon MISC) and 1 Each in the evening. lancing Yes 1{each} Take 1 Unive rs device/lanc 4-17 Each in [facility] ets 14:20: the [place] (ACCU-CHEK 29 morning Medica l SOFT DEV and 1 Each Branc h LANCETS at noon MISC) and 1 Each in the evening. lancing Yes 1{each} Take 1 Unive rs device/lanc 4-17 Each in [facility] ets 14:20: the [place] (ACCU-CHEK 29 morning Medica l SOFT DEV and 1 Each Branc h LANCETS at noon MISC) and 1 Each in the evening. lancing Yes 1{each} Take 1 Unive rs device/lanc 4-17 Each in [facility] ets 14:20: the [place] (ACCU-CHEK 29 morning Medica l SOFT DEV and 1 Each Branc h LANCETS at noon MISC) and 1 Each in the evening. lancing Yes 1{each} Take 1 [facility] rs device/lanc 4-17 [facility] in [facility] 14:20: the [place] (ACCU-CHEK 29 morning [...] 1 Unive rs device/lanc 4-17 Each in [facility] ets 14:20: the [place] (ACCU-CHEK 29 morning Medica l SOFT DEV and 1 Each Branc h LANCETS at noon MISC) and 1 Each in the evening. lancing Yes 1{each} Take 1 [facility] rs device/lanc 4-17 Each in [facility] et[facility] 14:20: the [place] (ACCU-CHEK 29 morning Medica l SOFT DEV and 1 Each Branc h LANCETS at noon MISC) and 1 Each in the evening. lancing Yes 1{each} Take 1 Unive rs device/lanc 4-17 Each in [facility] ets 14:20: the [place] (ACCU-CHEK 29 morning Medica l SOFT DEV and 1 Each Branc h LANCETS at noon MISC) and 1 Each in the evening. lancing Yes 1{each} Take 1 Unive rs device/lanc 4-17 Each in [facility] ets 14:20: the [place] (ACCU-CHEK 29 morning Medica l SOFT DEV and 1 Each Branc h LANCETS at noon MISC) and 1 Each in the evening. lancing Yes 1{each} Take 1 Unive rs device/lanc 4-17 Each in [facility] ets 14:20: the [place] (ACCU-CHEK 29 morning Medica l SOFT DEV and 1 Each Branc h LANCETS at noon MISC) and 1 Each in the evening. lancing Yes 1{each} Take 1 [facility] rs device/lanc 4-17 Each in [facility] 14:20: the [place] (ACCU-CHEK 29 morning [...] 1 Unive rs device/lanc 4-17 Each in [facility] ets 14:20: the [place] (ACCU-CHEK 29 morning Medica l SOFT DEV and 1 Each Branc h LANCETS at noon MISC) and 1 Each in the evening. lancing 0 Yes 1{each} Take 1 Unive rs device/lanc 4-17 Each in [facility] ets 14:20: the [place] (ACCU-CHEK 29 morning Medica l SOFT DEV and 1 Each Branc h LANCETS at noon MISC) and 1 Each in the evening. lancing Yes 1{each} Take 1 Unive rs device/lanc 4-17 Each in [facility] ets 14:20: the [place] (ACCU-CHEK 29 morning Medica l SOFT DEV and 1 Each Branc h LANCETS at noon MISC) and 1 Each in the evening. lancing Yes 1{each} Take 1 Unive rs device/lanc 4-17 Each in [facility] ets 14:20: the [place] (ACCU-CHEK 29 morning Medica l SOFT DEV and 1 Each Branc h LANCETS at noon MISC) and 1 Each in the evening. lancing Yes 1{each} Take 1 Unive rs device/lanc 4-17 Each in [facility] ets 14:20: the [place] (ACCU-CHEK 29 morning Medica l SOFT DEV and 1 Each Branc h LANCETS at noon MISC) and 1 Each in the evening. lancing Yes 1{each} Take 1 [facility] device/lanc 4-17 Each in [facility] 14:20: the [place] (ACCU-CHEK 29 morning Medica l SOFT DEV and 1 Each Branc h LANCETS at noon MISC) and 1 Each in the evening. lancing Yes 1{each} Take 1 Unive rs device/lanc 4-17 Each in [facility] ets 14:20: the [place] (ACCU-CHEK 29 morning [...] Unive rs device/lanc 4-17 Each in ity [facility] ets 14:20: the [place] (ACCU-CHEK 29 morning Medica l SOFT DEV and 1 Each Branc h LANCETS at noon MISC) and 1 Each in the evening. lisinopriL 2022-2022- No 2.5mg Take 1 Uni vers 2.5 mg 4-17 04-17 tablet by ity of tablet 14:01: 00:00 mouth in [place] 18 :00 the Medical morning. Branch gabapentin 2022-2022- No 300mg Take 1 Uni vers 300 mg 4-17 04-17 capsule by ity of capsule 14:01: 00:00 mouth in [place] 18 :00 the Medical morning. Branch atorvastati 2022-2022- No 40mg Take 1 Uni vers n 40 mg 4-17 04-17 tablet by ity of tablet 14:01: 00:00 mouth at [place] 18 :00 bedtime. Medical Branch apixaban 5 2022-0 2022- No 5mg Take 1 Univ ers mg tablet 4-17 -17 tablet by ity of 14:01: 00:00 mouth [place] 18 :00 every 12 Medical (twelve) Branch hours. metoprolol 2022-0 2022- No 25mg Take 1 Univ ers tartrate 25 4-17 04-17 tablet by it y of mg tablet 14:01: 00:00 mouth in [facility] 18 :00 the Medical morning Branch and [...] 12 Medical (twelve) Branch hours. metoprolol 3-0 2023- No 25mg Take 1 Univ ers tartrate 25 4-17 04-17 tablet by it y of mg tablet 14:01: 00:00 mouth in [facility] as 18 :00 the Medical morning Branch and 1 tablet in the evening. lisinopriL 3-0 2023- No 2.5mg Take 1 Uni vers 2.5 mg 4-17 04-17 tablet by ity of tablet 14:01: 00:00 mouth in [place] 18 :00 the Medical morning. Branch gabapentin 2022-0 3- No 300mg Take 1 Uni vers 300 mg 4-17 04-17 capsule by ity of capsule 14:01: 00:00 mouth in [place] 18 :00 the Medical morning. Branch atorvastati 3-0 2023- No 40mg Take 1 Uni vers n 40 mg 4-17 04-17 tablet by ity of tablet 14:01: 00:00 mouth at [place] 18 :00 bedtime. Medical Branch apixaban 5 3-0 2023- No 5mg Take 1 Univ ers mg tablet 4-17 04-17 tablet by ity of 14:01: 00:00 mouth [place] 18 :00 every 12 Medical (twelve) Branch hours. metoprolol 2023-0 2023- No 25mg Take 1 Univ ers tartrate 25 4-17 04-17 tablet by it y of mg tablet 14:01: 00:00 mouth in [facility] as 18 :00 the Medical morning Branch [...] BKA Suhas as 59 Medical Branch Miscellaneo 202-0 Yes Bilateral U nivers us Medical 4-17 [...] BKA [place]has as 59 Medical Branch Miscellaneo 202-0 Yes Bilateral U nivers us Medical 4-17 prosthetic ity of Supply Misc 13:42: s - BKA Suhas as 59 Medical Branch insulin NPH Yes inject Univ ers human 4-17 under the ity of isophane 13:33: skin. Abdi (HUMULIN N 22 Unsure of Medi dilshad [place]) what kind Branch of humulin insulin he takes insulin NPH 2022-0 Yes inject Univ ers human 4-17 under the ity of isophane 13:33: skin. Abdi (HUMULIN N 22 Unsure of Medi dilshad [place]) what kind Branch of humulin insulin he takes insulin NPH 2022-0 Yes inject Univ ers human 4-17 under the ity of isophane 13:33: skin. Abdi (HUMULIN N 22 Unsure of Medi dilshad [place]) what kind Branch of humulin insulin he takes SEMGLEE,INS 2022-0 Yes inject Univ ers ULIN 4-17 under the ity of GLARGINE-YF 13:33: skin. As AURELIO Quintanilla 22 directed Medical Branch insulin NPH 0 Yes inject Univ ers human 4-17 under the ity of isophane 13:33: skin. Abdi (HUMULIN N 22 Unsure of Medi dilshad [place]) what kind Branch of humulin insulin he takes SEMGLEE,INS 2022-0 Yes inject Univ ers ULIN 4-17 under the ity of GLARGINE-YF 13:33: skin. As AURELIO Quintanilla 22 directed Medical Branch insulin NPH 2022-0 Yes inject Univ ers human 4-17 under the ity of isophane 13:33: skin. Abdi (HUMULIN N 22 Unsure of Medi dilshad [place]) what kind Branch of humulin insulin he takes SEMGLEE,INS 2022-0 Yes inject Univ ers ULIN 4-17 under the ity of GLARGINE-YF 13:33: skin. As AURELIO Quintanilla 22 directed Medical Branch insulin NPH 2022-0 Yes inject Univ ers human 4-17 under the ity of isophane 13:33: skin. Abdi (HUMULIN N 22 Unsure of Medi dilshad [place]) what kind Branch of humulin insulin he takes SEMGLEE,INS 3-0 Yes inject Univ ers ULIN 4-17 under the ity of GLARGINE-YF 13:33: skin. As AURELIO Quintanilla 22 directed Medical Branch insulin NPH 2022-0 Yes inject Univ ers human 4-17 under the ity of isophane 13:33: skin. Abdi (HUMULIN N 22 Unsure of Medi dilshad [place]) what kind Branch of humulin insulin he takes SEMGLEE,INS 2023-0 Yes inject Univ ers ULIN 4-17 under the ity of GLARGINE-YF 13:33: skin. As AURELIO Quintanilla 22 directed Medical Branch insulin NPH 2022-0 Yes inject Univ ers human 4-17 under the ity of isophane 13:33: skin. Abdi (HUMULIN N 22 Unsure of Medi dilshad [place]) what kind Branch of humulin insulin he takes SEMGLEE,INS 2023-0 Yes inject Univ ers ULIN 4-17 under the ity of GLARGINE-YF 13:33: skin. As AURELIO Quintanilla 22 directed Medical Branch insulin NPH 2022-0 Yes inject Univ ers human 4-17 under the ity of isophane 13:33: skin. Abdi (HUMULIN N 22 Unsure of Medi dilshad [place]) what kind Branch of humulin insulin he takes SEMGLEE,INS 3-0 Yes inject Univ ers ULIN 4-17 under the ity of GLARGINE-YF 13:33: skin. As AURELIO Quintanilla 22 directed Medical Branch insulin NPH 2022-0 Yes inject Univ ers human 4-17 under the ity of isophane 13:33: skin. Abdi (HUMULIN N 22 Unsure of Medi dilshad [place]) what kind Branch of humulin insulin he takes SEMGLEE,INS 2023-0 Yes inject Univ ers ULIN 4-17 under the ity of GLARGINE-YF 13:33: skin. As AURELIO Quintanilla 22 directed Medical Branch insulin NPH 2022-0 Yes inject Univ ers human 4-17 under the ity of isophane 13:33: skin. Abdi (HUMULIN N 22 Unsure of Medi dilshad [place]) what kind Branch of humulin insulin he takes SEMGLEE,INS 2023-0 Yes inject Univ ers ULIN 4-17 under the ity of GLARGINE-YF 13:33: skin. As AURELIO Quintanilla 22 directed Medical Branch insulin NPH 2022-0 Yes inject Univ ers human 4-17 under the ity of isophane 13:33: skin. Abdi (HUMULIN N 22 Unsure of [facility] dilshad [facility]) what kind Branch of humulin insulin he takes SEMGLEE,INS 2023-0 Yes inject Univ ers ULIN 4-17 under the ity of GLARGINE-YF 13:33: skin. As AURELIO Quintanilla 22 directed Medical Branch insulin NPH 2022-0 Yes inject Univ ers human 4-17 under the ity of isophane 13:33: skin. Abdi (HUMULIN N 22 Unsure of [facility] dilshad [facility]) what kind Branch of humulin insulin he takes SEMGLEE,INS 2023-0 Yes inject Univ ers ULIN 4-17 under the ity of GLARGINE-YF 13:33: skin. As AURELIO Quintanilla directed Medical Branch insulin NPH 2022-0 Yes inject Univ ers human 4-17 under the ity of isophane 13:33: skin. Abdi (HUMULIN N 22 Unsure of [facility]) what kind Branch of humulin insulin he takes SEMGLEE,INS 2023-0 Yes inject Univ ers ULIN 4-17 under the ity of GLARGINE-YF 13:33: skin. As AURELIO Quintanilla 22 directed Medical Branch insulin NPH 2022-0 Yes inject Univ ers human 4-17 under the ity of isophane 13:33: skin. Abdi (HUMULIN N 22 Unsure of [facility]) what kind Branch of humulin insulin he takes SEMGLEE,INS 2023-0 Yes inject Univ ers ULIN 4-17 under the ity of GLARGINE-YF 13:33: skin. As AURELIO Quintanilla 22 directed Medical Branch insulin NPH 2022-0 Yes inject Univ ers human 4-17 under the ity of isophane 13:33: skin. Abdi (HUMULIN N 22 Unsure of [facility]) what kind Branch of humulin insulin he takes SEMGLEE,INS 2023-0 Yes inject Univ ers ULIN 4-17 under the ity of GLARGINE-YF 13:33: skin. As AURELIO Quintanilla 22 directed Medical Branch insulin NPH 2022-0 Yes inject Univ ers human 4-17 under the ity of isophane 13:33: skin. [place]di (HUMULIN N 22 Unsure of [facility]i dilshad [place]) what kind Branch of humulin insulin he takes SEMGLEE,INS 2022-0 Yes inject Univ ers ULIN 4-17 under the ity of GLARGINE-YF 13:33: skin. As AURELIO Quintanilla 22 directed Medical Branch insulin NPH 2022-0 Yes inject Univ ers human 4-17 under the ity of isophane 13:33: skin. Abdi (HUMULIN N 22 Unsure of Medi dilshad [place]) what kind Branch of humulin insulin he takes SEMGLEE,INS 3-0 Yes inject Univ ers ULIN 4-17 under the ity of GLARGINE-YF 13:33: skin. As AURELIO Quintanilla 22 directed Medical Branch insulin NPH 2022-0 Yes inject Univ ers human 4-17 under the ity of isophane 13:33: skin. Abdi (HUMULIN N 22 Unsure of [facility] dilshad [place]) what kind Branch of humulin insulin he takes SEMGLEE,INS 3-0 Yes inject Univ ers ULIN 4-17 under the ity of GLARGINE-YF 13:33: skin. As AURELIO Quintanilla 22 directed Medical Branch insulin NPH 2022-0 Yes inject Univ ers human 4-17 under the ity of isophane 13:33: skin. Abdi (HUMULIN N 22 Unsure of [facility] dilshad [place]) what kind Branch of humulin insulin he takes SEMGLEE,INS 3-0 Yes inject Univ ers ULIN 4-17 under the ity of GLARGINE-YF 13:33: skin. As AURELIO Quintanilla 22 directed Medical Branch insulin NPH 2022-0 Yes inject Univ ers human 4-17 under the ity of isophane 13:33: skin. Abdi (HUMULIN N 22 Unsure of [facility] dilshad [place]) what kind Branch of humulin insulin he takes SEMGLEE,INS 3-0 Yes inject Univ ers ULIN 4-17 under the ity of GLARGINE-YF 13:33: skin. As AURELIO Quintanilla 22 directed Medical Branch insulin NPH 2022-0 Yes inject Univ ers human 4-17 under the ity of isophane 13:33: skin. [place]di (HUMULIN N 22 Unsure of [facility]i dilshad [place]) what kind Branch of humulin insulin he takes SEMGLEE,INS 2023-0 Yes inject Univ ers ULIN 4-17 under the ity of GLARGINE-YF 13:33: skin. As AURELIO Quintanilla 22 directed Medical Branch insulin NPH 2022-0 Yes inject Univ ers human 4-17 under the ity of isophane 13:33: skin. Abdi (HUMULIN N 22 Unsure of Medi dilshad [place]) what kind Branch of humulin insulin he takes SEMGLEE,INS 2023-0 Yes inject Univ ers ULIN 4-17 under the ity of GLARGINE-YF 13:33: skin. As AURELIO Quintanilla 22 directed Medical Branch insulin NPH 2022-0 Yes inject Univ ers human 4-17 under the ity of isophane 13:33: skin. Abdi (HUMULIN N 22 Unsure of Medi dilshad [place]) what kind Branch of humulin insulin he takes SEMGLEE,INS 2023-0 Yes inject Univ ers ULIN 4-17 under the ity of GLARGINE-YF 13:33: skin. As AURELIO Quintanilla 22 directed Medical Branch insulin NPH 2022-0 Yes inject Univ ers human 4-17 under the ity of isophane 13:33: skin. Abdi (HUMULIN N 22 Unsure of Medi dilshad [place]) what kind Branch of humulin insulin he takes SEMGLEE,INS 2023-0 Yes inject Univ ers ULIN 4-17 under the ity of GLARGINE-YF 13:33: skin. As AURELIO Quintanilla 22 directed Medical Branch insulin NPH 3-0 Yes inject Univ ers human 4-17 under the ity of isophane 13:33: skin. Abdi (HUMULIN N 22 Unsure of Medi dilshad [place]) what kind Branch of humulin insulin he takes SEMGLEE,INS 2023-0 Yes inject Univ ers ULIN 4-17 under the ity of GLARGINE-YF 13:33: skin. As AURELIO Quintanilla 22 directed Medical Branch insulin NPH 2023-0 Yes inject Univ ers human 4-17 under the ity of isophane 13:33: skin. Abdi (HUMULIN N 22 Unsure of [facility]i dilshad [place]) what kind Branch of humulin insulin he takes SEMGLEE,INS 2023-0 Yes inject Univ ers ULIN 4-17 under the ity of GLARGINE-YF 13:33: skin. As Rolando BRITO [place] 22 directed Medical Branch insulin NPH 2023-0 Yes inject Univ ers human 4-17 under the ity of isophane 13:33: skin. Abdi (HUMULIN N 22 Unsure of [facility] dilshad [place]) what kind Branch of humulin insulin he takes SEMGLEE,INS 2023-0 Yes inject Univ ers ULIN 4-17 under the ity of GLARGINE-YF 13:33: skin. As Rolando BRITO [place] 22 directed Medical Branch insulin NPH 3-0 Yes inject Univ ers human 4-17 under the ity of isophane 13:33: skin. Abdi (HUMULIN N 22 Unsure of [facility] dilshad [place]) what kind Branch of humulin insulin he takes SEMGLEE,INS 2023-0 Yes inject Univ ers ULIN 4-17 under the ity of GLARGINE-YF 13:33: skin. As Rolando BRITO [place] 22 directed Medical Branch insulin NPH 3-0 Yes inject Univ ers human 4-17 under the ity of isophane 13:33: skin. Abdi (HUMULIN N 22 Unsure of [facility] dilshad [place]) what kind Branch of humulin insulin he takes insulin NPH 2023-0 Yes inject Univ ers human 4-17 under the ity of isophane 13:33: skin. Abdi (HUMULIN N 22 Unsure of [facility]ad [place]) what kind Branch of humulin insulin he takes insulin NPH 2023-0 Yes inject Univ ers human 4-17 under the ity of isophane 13:33: skin. Abdi (HUMULIN N 22 Unsure of [facility] [place]) what kind Branch of humulin insulin he takes insulin NPH 2023-0 Yes inject Univ ers human 4-17 under the ity of isophane 13:33: skin. Abdi (HUMULIN N 22 Unsure of [facility] [place]) what kind Branch of humulin insulin he takes insulin NPH 2023-0 Yes inject Univ ers human 4-17 under the ity of isophane 13:33: skin. Abdi (HUMULIN N 22 Unsure of [facility] [place]) what kind Branch of humulin insulin he takes insulin NPH 2023-0 Yes inject Univ ers human 4-17 under the ity of isophane 13:33: skin. [place] (HUMULIN N 22 Unsure of [facility]i dilshad [place] [place]) what kind Branch of humulin insulin he takes insulin NPH 2023-0 Yes inject Univ ers human 4-17 under the ity of isophane 13:33: skin. [place] (HUMULIN N 22 Unsure of Medi dilshad [place]EN [place]) what kind Branch of humulin insulin he takes insulin NPH 2023-0 Yes inject Univ ers human 4-17 under the ity of isophane 13:33: skin. [place] (HUMULIN N 22 Unsure of [facility]i dilshad [place]) what kind Branch of humulin insulin he takes cephALEXin 2023-0 Yes 500mg Take 1 Univ ers 500 mg 4-17 capsule by ity of capsule 13:23: mouth 4 [place] [address] (four) Medical times Branch daily. cephALEXin 2023-0 Yes 500mg Take 1 Univ ers 500 mg 4-17 capsule by ity of capsule 13:23: mouth 4 [place] [address] (four) Medical times Branch daily. cephALEXin 2023-0 Yes 500mg Take 1 Univ ers 500 mg 4-17 capsule by ity of capsule 13:23: mouth 4 [place] [address] (four) Medical times Branch daily. cephALEXin 2023-0 Yes 500mg Take 1 Univ ers 500 mg 4-17 capsule by ity of capsule 13:23: mouth 4 [place] [address] (four) Medical times Branch daily. cephALEXin 2023-0 Yes 500mg Take 1 Univ ers 500 mg 4-17 capsule by ity of capsule 13:23: mouth 4 [place] [address] (four) Medical times Branch daily. cephALEXin 2023-0 Yes 500mg Take 1 Univ ers 500 mg 4-17 capsule by ity of capsule 13:23: mouth 4 [place] 56 (four) Medical times Branch daily. cephALEXin 2023-0 Yes 500mg Take 1 Univ ers 500 mg 4-17 capsule by ity of capsule 13:23: mouth 4 [place] [address] (four) Medical times Branch daily. cephALEXin 2023-0 Yes 500mg Take 1 Univ ers 500 mg 4-17 capsule by ity of capsule 13:23: mouth 4 [place] [address] (four) Medical times Branch daily. cephALEXin 2023-0 Yes 500mg Take 1 Univ ers 500 mg 4-17 capsule by ity of capsule 13:23: mouth 4 [place] 56 (four) Medical times Branch daily. cephALEXin 2023-0 Yes 500mg Take 1 Univ ers 500 mg 4-17 capsule by ity of capsule 13:23: mouth 4 [place] 56 (four) Medical times Branch daily. cephALEXin 2023-0 Yes 500mg Take 1 Univ ers 500 mg 4-17 capsule by ity of capsule 13:23: mouth 4 [place] 56 (four) Medical times Branch daily. cephALEXin 2023-0 Yes 500mg Take 1 Univ ers 500 mg 4-17 capsule by ity of capsule 13:23: mouth 4 [place] 56 (four) Medical times Branch daily. cephALEXin 2023-0 Yes 500mg Take 1 Univ ers 500 mg 4-17 capsule by ity of capsule 13:23: mouth 4 [place] 56 (four) Medical times Branch daily. cephALEXin 2023-0 Yes 500mg Take 1 Univ ers 500 mg 4-17 capsule by ity of capsule 13:23: mouth 4 [place] 56 (four) Medical times Branch daily. cephALEXin 2023-0 Yes 500mg Take 1 Univ ers 500 mg 4-17 capsule by ity of capsule 13:23: mouth 4 [place] 56 (four) Medical times Branch daily. cephALEXin 2023-0 Yes 500mg Take 1 Univ ers 500 mg 4-17 capsule by ity of capsule 13:23: mouth 4 [place] 56 (four) Medical times Branch daily. cephALEXin 2023-0 Yes 500mg Take 1 Univ ers 500 mg 4-17 capsule by ity of capsule 13:23: mouth 4 [place] 56 (four) Medical times Branch daily. cephALEXin 2023-0 Yes 500mg Take 1 Univ ers 500 mg 4-17 capsule by ity of capsule 13:23: mouth 4 [place] 56 (four) Medical times Branch daily. cephALEXin 2023-0 Yes 500mg Take 1 Univ ers 500 mg 4-17 capsule by ity of capsule 13:23: mouth 4 [place] 56 (four) Medical times Branch daily. cephALEXin 2023-0 Yes 500mg Take 1 Univ ers 500 mg 4-17 capsule by ity of capsule 13:23: mouth 4 [place] 56 (four) Medical times Branch daily. cephALEXin 2023-0 Yes 500mg Take 1 Univ ers 500 mg 4-17 capsule by ity of capsule 13:23: mouth 4 [place] 56 (four) Medical times Branch daily. cephALEXin 2022-0 Yes 500mg Take 1 Univ ers 500 mg 4-17 capsule by ity of capsule 13:23: mouth 4 [place] 56 (four) Medical times Branch daily. cephALEXin 2022-0 Yes 500mg Take 1 Univ ers 500 mg 4-17 capsule by ity of capsule 13:23: mouth 4 [place] 56 (four) Medical times Branch daily. gabapentin 2022-0 Yes [id number] 300mg Take 1 [facility] 300 mg 4-17 capsule by ity of capsule 00:00: mouth in [place] 00 the Medical morning Branch and 1 capsule at noon and 1 capsule in the evening. amiodarone 2022-0 Yes [id number] 200mg Take 1 Univers 200 mg 4-17 tablet by ity of tablet 00:00: mouth in [place] 00 the Medical morning. Branch apixaban 5 2022-0 Yes 5mg Take 1 Unive rs mg tablet 4-17 tablet by ity o f 00:00: mouth in [place] 00 the Medical morning Branch and 1 tablet in the evening. Indication s: ATRIAL FIBRILLATI ON atorvastati 2022-0 Yes [id number] 40mg Take 1 Univers n 40 mg 4-17 tablet by ity of tablet 00:00: mouth at [place] [address] bedtime. Medical Branch SERTraline 2022-0 Yes [id number] 100mg Take 1 Univers 100 mg 4-17 tablet by ity of tablet 00:00: mouth in [place] 00 the Medical morning. Branch lisinopriL 2022-0 Yes [id number] 2.5mg Take 1 Univers 2.5 mg 4-17 tablet by ity of tablet 00:00: mouth in [place] 00 the Medical morning. Branch metoprolol 2022-0 Yes [id number] 25mg Take 1 U nivers tartrate 25 4-17 tablet by ity of mg tablet 00:00: mouth in [facility] 00 the Medical morning Branch and 1 tablet in the evening. blood sugar 2022-0 Yes [id number] Check U nivers diagnostic 4-17 blood ity of strip 00:00: sugar 2 [place] 00 times a Medical day. Branch E11.9. Brand per insurance. Uses ACCU-CHEK machine Lancets 2022-0 Yes [id number] Check Unive rs Misc 4-17 blood ity of 00:00: sugar 2 [place] 00 times a Medical day. Branch E11.9. Brand per insurance. gabapentin 2022-0 Yes [id number] 300mg Take 1 [facility] 300 mg 4-17 capsule by ity of capsule 00:00: mouth in [place] 00 the morning Branch and 1 capsule at noon and 1 capsule in the evening. amiodarone 2022-0 Yes [id number] 200mg Take 1 [facility] 200 mg 4-17 tablet by ity of tablet 00:00: mouth in [place] 00 the morning. Branch apixaban 5 2022-0 Yes 5mg Take 1 [facility] rs mg tablet 4-17 tablet by ity o f 00:00: mouth in [place] 00 the morning Branch and 1 tablet in the evening. Indication s: ATRIAL FIBRILLATI ON atorvastati 2022- Yes [id number] 40mg Take 1 [facility] n 40 mg 4-17 tablet by ity of tablet 00:00: mouth at [place] [address] bedtime. Medical Branch SERTraline Yes [id number] 100mg Take 1 [facility] 100 mg 4-17 tablet by ity of tablet 00:00: mouth in [place] 00 the morning. Branch lisinopriL Yes [id number] 2.5mg Take 1 [facility] 2.5 mg 4-17 tablet by ity of tablet 00:00: mouth in [place] 00 the morning. Branch metoprolol 0 Yes [id number] 25mg Take 1 [facility] nivers tartrate 25 4-17 tablet by ity of mg tablet 00:00: mouth in [facility] 00 the morning Branch and 1 tablet in the evening. blood sugar 2022-0 Yes [id number] Check U nivers diagnostic 4-17 blood ity of strip 00:00: sugar 2 [place] 00 times a Medical day. Branch E11.9. Brand per insurance. Uses ACCU-CHEK machine Lancets 2022-0 Yes [id number] Check Unive rs Misc 4-17 blood ity of 00:00: sugar 2 [place] 00 times a Medical day. Branch E11.9. Brand per insurance. gabapentin 2022-0 Yes [id number] 300mg Take 1 [facility] 300 mg 4-17 capsule by ity of capsule 00:00: mouth in [place] 00 the morning Branch and 1 capsule at noon and 1 capsule in the evening. amiodarone 2022-0 Yes [id number] 200mg Take 1 [facility] 200 mg 4-17 tablet by ity of tablet 00:00: mouth in [place] the morning. Branch apixaban 5 Yes 5mg Take 1 [facility] rs mg tablet 4-17 tablet by ity o f 00:00: mouth in [place] the morning Branch and 1 tablet in the evening. Indication s: ATRIAL FIBRILLATI ON atorvastati Yes [id number] 40mg Take 1 [facility] n 40 mg 4-17 tablet by ity of tablet 00:00: mouth at [place] [address] bedtime. Medical Branch SERTraline Yes [id number] 100mg Take 1 [facility] 100 mg 4-17 tablet by ity of tablet 00:00: mouth in [place] 00 the morning. Branch lisinopriL Yes [id number] 2.5mg Take 1 [facility] 2.5 mg 4-17 tablet by ity of tablet 00:00: mouth in [place] 00 the morning. Branch metoprolol Yes [id number] 25mg Take 1 U nivers tartrate 25 4-17 tablet by ity of mg tablet 00:00: mouth in [facility] 00 the morning Branch and 1 tablet in the evening. blood sugar Yes [id number] Check U nivers diagnostic 4-17 blood ity of strip 00:00: sugar 2 [place] 00 times a Medical day. Branch E11.9. Brand per insurance. Uses ACCU-CHEK machine Lancets Yes [id number] Check Unive rs Misc 4-17 blood ity of 00:00: sugar 2 [place] 00 times a Medical day. Branch E11.9. Brand per insurance. gabapentin Yes [id number] 300mg Take 1 [facility] 300 mg 4-17 capsule by ity of capsule 00:00: mouth in [place] the morning Branch and 1 capsule at noon and 1 capsule in the evening. amiodarone Yes [id number] 200mg Take 1 [facility] 200 mg 4-17 tablet by ity of tablet 00:00: mouth in [place] 00 the morning. Branch apixaban 5 Yes 5mg Take 1 [facility] rs mg tablet 4-17 tablet by ity o f 00:00: mouth in [place] the morning Branch and 1 tablet in the evening. Indication s: ATRIAL FIBRILLATI ON atorvastati Yes [id number] 40mg Take 1 [facility] n 40 mg 4-17 tablet by ity of tablet 00:00: mouth at [place] [address] bedtime. Medical Branch SERTraline Yes [id number] 100mg Take 1 [facility] 100 mg 4-17 tablet by ity of tablet 00:00: mouth in [place] the morning. Branch lisinopriL Yes [id number] 2.5mg Take 1 [facility] 2.5 mg 4-17 tablet by ity of tablet 00:00: mouth in [place] the morning. Branch metoprolol Yes [id number] 25mg Take 1 [facility] nivers tartrate 25 4-17 tablet by ity of mg tablet 00:00: mouth in [facility] the morning Branch and 1 tablet in the evening. blood sugar Yes [id number] Check U nivers diagnostic 4-17 blood ity of strip 00:00: sugar 2 [place] 00 times a Medical day. Branch E11.9. Brand per insurance. Uses ACCU-CHEK machine Lancets Yes [id number] Check Unive rs Misc 4-17 blood ity of 00:00: sugar 2 [place] 00 times a Medical day. Branch E11.9. Brand per insurance. gabapentin Yes [id number] 300mg Take 1 [facility] 300 mg 4-17 capsule by ity of capsule 00:00: mouth in [place] the morning Branch and 1 capsule at noon and 1 capsule in the evening. amiodarone Yes [id number] 200mg Take 1 [facility] 200 mg 4-17 tablet by ity of tablet 00:00: mouth in [place] the morning. Branch apixaban 5 Yes 5mg Take 1 [facility] rs mg tablet 4-17 tablet by ity o f 00:00: mouth in [place] the morning Branch and 1 tablet in the evening. Indication s: ATRIAL FIBRILLATI ON atorvastati Yes [id number] 40mg Take 1 [facility] n 40 mg 4-17 tablet by ity of tablet 00:00: mouth at [place] [address] bedtime. Medical Branch SERTraline Yes [id number] 100mg Take 1 [facility] 100 mg 4-17 tablet by ity of tablet 00:00: mouth in [place] 00 the morning. Branch lisinopriL Yes [id number] 2.5mg Take 1 [facility] 2.5 mg 4-17 tablet by ity of tablet 00:00: mouth in [place] the morning. Branch metoprolol Yes [id number] 25mg Take 1 U nivers tartrate 25 4-17 tablet by ity of mg tablet 00:00: mouth in [facility] the morning Branch and 1 tablet in the evening. blood sugar 0 Yes [id number] Check U nivers diagnostic 4-17 blood ity of strip 00:00: sugar 2 [place] times a Medical day. Branch E11.9. Brand per insurance. Uses ACCU-CHEK machine Lancets Yes [id number] Check Unive rs Misc 4-17 blood ity of 00:00: sugar 2 [place] times a Medical day. Branch E11.9. Brand per insurance. gabapentin Yes [id number] 300mg Take 1 [facility] 300 mg 4-17 capsule by ity of capsule 00:00: mouth in [place] the morning Branch and 1 capsule at noon and 1 capsule in the evening. amiodarone Yes [id number] 200mg Take 1 [facility] 200 mg 4-17 tablet by ity of tablet 00:00: mouth in [place] the morning. Branch apixaban 5 0 Yes 5mg Take 1 [facility] rs mg tablet 4-17 tablet by ity o f 00:00: mouth in [place] the morning Branch and 1 tablet in the evening. Indication s: ATRIAL FIBRILLATI ON atorvastati 2022-0 Yes [id number] 40mg Take 1 [facility] n 40 mg 4-17 tablet by ity of tablet 00:00: mouth at [place] [address] bedtime. Medical Branch SERTraline 0 Yes [id number] 100mg Take 1 [facility] 100 mg 4-17 tablet by ity of tablet 00:00: mouth in [place] the morning. Branch lisinopriL 2022-0 Yes [id number] 2.5mg Take 1 [facility] 2.5 mg 4-17 tablet by ity of tablet 00:00: mouth in [place] [address] the morning. Branch metoprolol 2022-0 Yes [id number] 25mg Take 1 U nivers tartrate 25 4-17 tablet by ity of mg tablet 00:00: mouth [place] 00 the Medical morning Branch and 1 tablet in the evening. blood sugar Yes [id number] Check U nivers diagnostic 4-17 blood ity of strip 00:00: sugar 2 [place] 00 times a Medical day. Branch E11.9. Brand per insurance. Uses ACCU-CHEK machine Lancets Yes [id number] Check Unive rs Misc 4-17 blood ity of 00:00: sugar 2 [place] 00 times a Medical day. Branch E11.9. Brand per insurance. gabapentin Yes [id number] 300mg Take 1 [facility] 300 mg 4-17 capsule by ity of capsule 00:00: mouth in [place] 00 the morning Branch and 1 capsule at noon and 1 capsule in the evening. amiodarone Yes [id number] 200mg Take 1 [facility] 200 mg 4-17 tablet by ity of tablet 00:00: mouth in [place] 00 the morning. Branch apixaban 5 Yes 5mg Take 1 [facility] rs mg tablet 4-17 tablet by ity o f 00:00: mouth in [place] 00 the morning Branch and 1 tablet in the evening. Indication s: ATRIAL FIBRILLATI ON atorvastati Yes [id number] 40mg Take 1 [facility] n 40 mg 4-17 tablet by ity of tablet 00:00: mouth at [place] 00 bedtime. Medical Branch SERTraline Yes [id number] 100mg Take 1 [facility] 100 mg 4-17 tablet by ity of tablet 00:00: mouth in [place] 00 the morning. Branch lisinopriL Yes [id number] 2.5mg Take 1 [facility] 2.5 mg 4-17 tablet by ity of tablet 00:00: mouth in [place] 00 the Medical morning. Branch metoprolol Yes [id number] 25mg Take 1 U nivers tartrate 25 4-17 tablet by ity of mg tablet 00:00: mouth in [facility] 00 the morning Branch and 1 tablet in the evening. blood sugar 0 Yes [id number] Check U nivers diagnostic 4-17 blood ity of strip 00:00: sugar 2 [place] 00 times a Medical day. Branch E11.9. Brand per insurance. Uses ACCU-CHEK machine Lancets Yes [id number] Check Unive rs Misc 4-17 blood ity of 00:00: sugar 2 [place] 00 times a Medical day. Branch E11.9. Brand per insurance. gabapentin Yes [id number] 300mg Take 1 [facility] 300 mg 4-17 capsule by ity of capsule 00:00: mouth in [place] 00 the Medical morning Branch and 1 capsule at noon and 1 capsule in the evening. amiodarone Yes [id number] 200mg Take 1 [facility] 200 mg 4-17 tablet by ity of tablet 00:00: mouth in [place] 00 the morning. Branch apixaban 5 Yes 5mg Take 1 [facility] rs mg tablet 4-17 tablet by ity o f 00:00: mouth in [place] 00 the Medical morning Branch and 1 tablet in the evening. Indication s: ATRIAL FIBRILLATI ON atorvastati Yes [id number] 40mg Take 1 [facility] n 40 mg 4-17 tablet by ity of tablet 00:00: mouth at [place] [address] bedtime. Medical Branch SERTraline Yes [id number] 100mg Take 1 [facility] 100 mg 4-17 tablet by ity of tablet 00:00: mouth in [place] the Medical morning. Branch lisinopriL Yes [id number] 2.5mg Take 1 [facility] 2.5 mg 4-17 tablet by ity of tablet 00:00: mouth in [place] 00 the Medical morning. Branch metoprolol Yes [id number] 25mg Take 1 U nivers tartrate 25 4-17 tablet by ity of mg tablet 00:00: mouth in [facility] 00 the Medical morning Branch and 1 tablet in the evening. blood sugar Yes [id number] Check U nivers diagnostic 4-17 blood ity of strip 00:00: sugar 2 [place] 00 times a Medical day. Branch E11.9. Brand per insurance. Uses ACCU-CHEK machine Lancets Yes [id number] Check Unive rs Misc 4-17 blood ity of 00:00: sugar 2 [place] 00 times a Medical day. Branch E11.9. Brand per insurance. gabapentin Yes [id number] 300mg Take 1 [facility] 300 mg 4-17 capsule by ity of capsule 00:00: mouth in [place] 00 the Medical morning Branch and 1 capsule at noon and 1 capsule in the evening. amiodarone Yes [id number] 200mg Take 1 [facility] 200 mg 4-17 tablet by ity of tablet 00:00: mouth in [place] the morning. Branch apixaban 5 0 Yes 5mg Take 1 [facility] rs mg tablet 4-17 tablet by ity o f 00:00: mouth in [place] the morning Branch and 1 tablet in the evening. Indication s: ATRIAL FIBRILLATI ON atorvastati 0 Yes [id number] 40mg Take 1 [facility] n 40 mg 4-17 tablet by ity of tablet 00:00: mouth at [place] [address] bedtime. Medical Branch SERTraline Yes [id number] 100mg Take 1 [facility] 100 mg 4-17 tablet by ity of tablet 00:00: mouth in [place] the morning. Branch lisinopriL Yes [id number] 2.5mg Take 1 [facility] 2.5 mg 4-17 tablet by ity of tablet 00:00: mouth in [place] the morning. Branch metoprolol Yes [id number] 25mg Take 1 U nivers tartrate 25 4-17 tablet by ity of mg tablet 00:00: mouth in [facility] the morning Branch and 1 tablet in the evening. blood sugar Yes [id number] Check U nivers diagnostic 4-17 blood ity of strip 00:00: sugar 2 [place] 00 times a Medical day. Branch E11.9. Brand per insurance. Uses ACCU-CHEK machine Lancets Yes [id number] Check Unive rs Misc 4-17 blood ity of 00:00: sugar 2 [place] [address] times a Medical day. Branch E11.9. Brand per insurance. gabapentin 0 Yes [id number] 300mg Take 1 [facility] 300 mg 4-17 capsule by ity of capsule 00:00: mouth in [place] the morning Branch and 1 capsule at noon and 1 capsule in the evening. amiodarone 2022-0 Yes [id number] 200mg Take 1 [facility] 200 mg 4-17 tablet by ity of tablet 00:00: mouth in [place] [address] the morning. Branch apixaban 5 0 Yes 5mg Take 1 [facility] rs mg tablet 4-17 tablet by ity o f 00:00: mouth in [place] 00 the morning Branch and 1 tablet in the evening. Indication s: ATRIAL FIBRILLATI ON atorvastati Yes [id number] 40mg Take 1 [facility] n 40 mg 4-17 tablet by ity of tablet 00:00: mouth at [place] [address] bedtime. Medical Branch SERTraline Yes [id number] 100mg Take 1 [facility] 100 mg 4-17 tablet by ity of tablet 00:00: mouth in [place] 00 the morning. Branch lisinopriL Yes [id number] 2.5mg Take 1 [facility] 2.5 mg 4-17 tablet by ity of tablet 00:00: mouth in [place] 00 the morning. Branch metoprolol Yes [id number] 25mg Take 1 U nivers tartrate 25 4-17 tablet by ity of mg tablet 00:00: mouth in [facility] 00 the morning Branch and 1 tablet in the evening. blood sugar Yes [id number] Check U nivers diagnostic 4-17 blood ity of strip 00:00: sugar 2 [place] 00 times a Medical day. Branch E11.9. Brand per insurance. Uses ACCU-CHEK machine Lancets Yes [id number] Check Unive rs Misc 4-17 blood ity of 00:00: sugar 2 [place] 00 times a Medical day. Branch E11.9. Brand per insurance. gabapentin Yes [id number] 300mg Take 1 [facility] 300 mg 4-17 capsule by ity of capsule 00:00: mouth in [place] 00 the morning Branch and 1 capsule at noon and 1 capsule in the evening. amiodarone Yes [id number] 200mg Take 1 [facility] 200 mg 4-17 tablet by ity of tablet 00:00: mouth in [place] 00 the morning. Branch apixaban 5 Yes 5mg Take 1 [facility] rs mg tablet 4-17 tablet by ity o f 00:00: mouth in [place] 00 the morning Branch and 1 tablet in the evening. Indication s: ATRIAL FIBRILLATI ON atorvastati Yes [id number] 40mg Take 1 [facility] n 40 mg 4-17 tablet by ity of tablet 00:00: mouth at [place] [address] bedtime. Medical Branch SERTraline Yes [id number] 100mg Take 1 [facility] 100 mg 4-17 tablet by ity of tablet 00:00: mouth in [place] the morning. Branch lisinopriL Yes [id number] 2.5mg Take 1 [facility] 2.5 mg 4-17 tablet by ity of tablet 00:00: mouth in [place] the morning. Branch metoprolol Yes [id number] 25mg Take 1 U nivers tartrate 25 4-17 tablet by ity of mg tablet 00:00: mouth in [facility] 00 the morning Branch and 1 tablet in the evening. blood sugar Yes [id number] Check U nivers diagnostic 4-17 blood ity of strip 00:00: sugar 2 [place] times a Medical day. Branch E11.9. Brand per insurance. Uses ACCU-CHEK machine Lancets Yes [id number] Check Unive rs Misc 4-17 blood ity of 00:00: sugar 2 [place] times a Medical day. Branch E11.9. Brand per insurance. gabapentin Yes [id number] 300mg Take 1 [facility] 300 mg 4-17 capsule by ity of capsule 00:00: mouth in [place] the morning Branch and 1 capsule at noon and 1 capsule in the evening. amiodarone Yes [id number] 200mg Take 1 [facility] 200 mg 4-17 tablet by ity of tablet 00:00: mouth in [place] the morning. Branch apixaban 5 Yes 5mg Take 1 [facility] rs mg tablet 4-17 tablet by ity o f 00:00: mouth in [place] the morning Branch and 1 tablet in the evening. Indication s: ATRIAL FIBRILLATI ON atorvastati Yes [id number] 40mg Take 1 [facility] n 40 mg 4-17 tablet by ity of tablet 00:00: mouth at [place] [address] bedtime. Medical Branch SERTraline Yes [id number] 100mg Take 1 [facility] 100 mg 4-17 tablet by ity of tablet 00:00: mouth in [place] 00 the morning. Branch lisinopriL 0 Yes [id number] 2.5mg Take 1 [facility] 2.5 mg 4-17 tablet by ity of tablet 00:00: mouth in [place] the morning. Branch metoprolol 2022-0 Yes [id number] 25mg Take 1 U nivers tartrate 25 4-17 tablet by ity of mg tablet 00:00: mouth in [facility] the morning Branch and 1 tablet in the evening. blood sugar 2022-0 Yes [id number] Check U nivers diagnostic 4-17 blood ity of strip 00:00: sugar 2 [place] times a Medical day. Branch E11.9. Brand per insurance. Uses ACCU-CHEK machine Lancets 2022-0 Yes [id number] Check Unive rs Misc 4-17 blood ity of 00:00: sugar 2 [place] times a Medical day. Branch E11.9. Brand per insurance. gabapentin 2022-0 Yes [id number] 300mg Take 1 [facility] 300 mg 4-17 capsule by ity of capsule 00:00: mouth in [place] the morning Branch and 1 capsule at noon and 1 capsule in the evening. amiodarone 2022-0 Yes [id number] 200mg Take 1 [facility] 200 mg 4-17 tablet by ity of tablet 00:00: mouth in [place] the morning. Branch apixaban 5 2022-0 Yes 5mg Take 1 [facility] rs mg tablet 4-17 tablet by ity o f 00:00: mouth in [place] the morning Branch and 1 tablet in the evening. Indication s: ATRIAL FIBRILLATI ON atorvastati 2022-0 Yes [id number] 40mg Take 1 [facility] n 40 mg 4-17 tablet by ity of tablet 00:00: mouth at [place] [address] bedtime. Medical Branch SERTraline 2022-0 Yes [id number] 100mg Take 1 [facility] 100 mg 4-17 tablet by ity of tablet 00:00: mouth in [place] the morning. Branch lisinopriL 2022-0 Yes [id number] 2.5mg Take 1 [facility] 2.5 mg 4-17 tablet by ity of tablet 00:00: mouth in [place] [address] the morning. Branch metoprolol 2022-0 Yes [id number] 25mg Take 1 U nivers tartrate 25 4-17 tablet by ity of mg tablet 00:00: mouth in [facility] the morning Branch and 1 tablet in the evening. blood sugar 2022-0 Yes [id number] Check U nivers diagnostic 4-17 blood ity of strip 00:00: sugar 2 [place] 00 times a Medical day. Branch E11.9. Brand per insurance. Uses ACCU-CHEK machine Lancets Yes [id number] Check Unive rs Misc 4-17 blood ity of 00:00: sugar 2 [place] 00 times a Medical day. Branch E11.9. Brand per insurance. gabapentin Yes [id number] 300mg Take 1 [facility] 300 mg 4-17 capsule by ity of capsule 00:00: mouth in [place] 00 the Medical morning Branch and 1 capsule at noon and 1 capsule in the evening. amiodarone Yes [id number] 200mg Take 1 [facility] 200 mg 4-17 tablet by ity of tablet 00:00: mouth in [place] 00 the morning. Branch apixaban 5 Yes 5mg Take 1 Un[facility] rs mg tablet 4-17 tablet by ity o f 00:00: mouth in [place] the morning Branch and 1 tablet in the evening. Indication s: ATRIAL FIBRILLATI ON atorvastati Yes [id number] 40mg Take 1 [facility] n 40 mg 4-17 tablet by ity of tablet 00:00: mouth at [place] [address] bedtime. Medical Branch SERTraline Yes [id number] 100mg Take 1 [facility] 100 mg 4-17 tablet by ity of tablet 00:00: mouth in [place] 00 the morning. Branch lisinopriL Yes [id number] 2.5mg Take 1 [facility] 2.5 mg 4-17 tablet by ity of tablet 00:00: mouth in [place] 00 the Medical morning. Branch metoprolol Yes [id number] 25mg Take 1 U nivers tartrate 25 4-17 tablet by ity of mg tablet 00:00: mouth in [facility] 00 the Medical morning Branch and 1 tablet in the evening. blood sugar Yes [id number] Check U nivers diagnostic 4-17 blood ity of strip 00:00: sugar 2 [place] 00 times a Medical day. Branch E11.9. Brand per insurance. Uses ACCU-CHEK machine Lancets 0 Yes [id number] Check Unive rs Misc 4-17 blood ity of 00:00: sugar 2 [place] 00 times a Medical day. Branch E11.9. Brand per insurance. gabapentin 2022-0 Yes [id number] 300mg Take 1 [facility] 300 mg 4-17 capsule by ity of capsule 00:00: mouth in [place] 00 the morning Branch and 1 capsule at noon and 1 capsule in the evening. amiodarone 2022-0 Yes [id number] 200mg Take 1 [facility] 200 mg 4-17 tablet by ity of tablet 00:00: mouth in [place] 00 the morning. Branch apixaban 5 2022-0 Yes 5mg Take 1 Un[facility] rs mg tablet 4-17 tablet by ity o f 00:00: mouth in [place] 00 the morning Branch and 1 tablet in the evening. Indication s: ATRIAL FIBRILLATI ON atorvastati 2022- Yes [id number] 40mg Take 1 [facility] n 40 mg 4-17 tablet by ity of tablet 00:00: mouth at [place] [address] bedtime. Medical Branch SERTraline Yes [id number] 100mg Take 1 [facility] 100 mg 4-17 tablet by ity of tablet 00:00: mouth in [place] 00 the morning. Branch lisinopriL Yes [id number] 2.5mg Take 1 [facility] 2.5 mg 4-17 tablet by ity of tablet 00:00: mouth in [place] 00 the morning. Branch metoprolol 0 Yes [id number] 25mg Take 1 U nivers tartrate 25 4-17 tablet by ity of mg tablet 00:00: mouth in [facility] 00 the morning Branch and 1 tablet in the evening. blood sugar 2022-0 Yes [id number] Check U nivers diagnostic 4-17 blood ity of strip 00:00: sugar 2 [place] 00 times a Medical day. Branch E11.9. Brand per insurance. Uses ACCU-CHEK machine Lancets 2022-0 Yes [id number] Check Unive rs Misc 4-17 blood ity of 00:00: sugar 2 [place] 00 times a Medical day. Branch E11.9. Brand per insurance. gabapentin 2022-0 Yes [id number] 300mg Take 1 [facility] 300 mg 4-17 capsule by ity of capsule 00:00: mouth in [place] 00 the morning Branch and 1 capsule at noon and 1 capsule in the evening. amiodarone 2022-0 Yes [id number] 200mg Take 1 [facility] 200 mg 4-17 tablet by ity of tablet 00:00: mouth in [place] 00 the morning. Branch apixaban 5 Yes 5mg Take 1 Un[facility] rs mg tablet 4-17 tablet by ity o f 00:00: mouth in [place] the morning Branch and 1 tablet in the evening. Indication s: ATRIAL FIBRILLATI ON atorvastati Yes [id number] 40mg Take 1 [facility] n 40 mg 4-17 tablet by ity of tablet 00:00: mouth at [place] [address] bedtime. Medical Branch SERTraline Yes [id number] 100mg Take 1 [facility] 100 mg 4-17 tablet by ity of tablet 00:00: mouth in [place] 00 the morning. Branch lisinopriL Yes [id number] 2.5mg Take 1 [facility] 2.5 mg 4-17 tablet by ity of tablet 00:00: mouth in [place] 00 the morning. Branch metoprolol Yes [id number] 25mg Take 1 U nivers tartrate 25 4-17 tablet by ity of mg tablet 00:00: mouth in [facility] the morning Branch and 1 tablet in the evening. blood sugar Yes [id number] Check U nivers diagnostic 4-17 blood ity of strip 00:00: sugar 2 [place] 00 times a Medical day. Branch E11.9. Brand per insurance. Uses ACCU-CHEK machine Lancets Yes [id number] Check Unive rs Misc 4-17 blood ity of 00:00: sugar 2 [place] times a Medical day. Branch E11.9. Brand per insurance. gabapentin Yes [id number] 300mg Take 1 [facility] 300 mg 4-17 capsule by ity of capsule 00:00: mouth in [place] the morning Branch and 1 capsule at noon and 1 capsule in the evening. amiodarone Yes [id number] 200mg Take 1 [facility] 200 mg 4-17 tablet by ity of tablet 00:00: mouth in [place] 00 the morning. Branch apixaban 5 Yes 5mg Take 1 [facility] rs mg tablet 4-17 tablet by ity o f 00:00: mouth in [place] the morning Branch and 1 tablet in the evening. Indication s: ATRIAL FIBRILLATI ON atorvastati Yes [id number] 40mg Take 1 [facility] n 40 mg 4-17 tablet by ity of tablet 00:00: mouth at [place] [address] bedtime. Medical Branch SERTraline Yes [id number] 100mg Take 1 [facility] 100 mg 4-17 tablet by ity of tablet 00:00: mouth in [place] 00 the morning. Branch lisinopriL Yes [id number] 2.5mg Take 1 [facility] 2.5 mg 4-17 tablet by ity of tablet 00:00: mouth in [place] 00 the morning. Branch metoprolol Yes [id number] 25mg Take 1 U nivers tartrate 25 4-17 tablet by ity of mg tablet 00:00: mouth in [facility] the morning Branch and 1 tablet in the evening. blood sugar Yes [id number] Check U nivers diagnostic 4-17 blood ity of strip 00:00: sugar 2 [place] 00 times a Medical day. Branch E11.9. Brand per insurance. Uses ACCU-CHEK machine Lancets Yes [id number] Check Unive rs Misc 4-17 blood ity of 00:00: sugar 2 [place] 00 times a Medical day. Branch E11.9. Brand per insurance. gabapentin Yes [id number] 300mg Take 1 [facility] 300 mg 4-17 capsule by ity of capsule 00:00: mouth in [place] the morning Branch and 1 capsule at noon and 1 capsule in the evening. amiodarone Yes [id number] 200mg Take 1 [facility] 200 mg 4-17 tablet by ity of tablet 00:00: mouth in [place] 00 the morning. Branch apixaban 5 Yes 5mg Take 1 [facility] rs mg tablet 4-17 tablet by ity o f 00:00: mouth in [place] the morning Branch and 1 tablet in the evening. Indication s: ATRIAL FIBRILLATI ON atorvastati Yes [id number] 40mg Take 1 [facility] n 40 mg 4-17 tablet by ity of tablet 00:00: mouth at [place] [address] bedtime. Medical Branch SERTraline Yes [id number] 100mg Take 1 [facility] 100 mg 4-17 tablet by ity of tablet 00:00: mouth in [place] 00 the morning. Branch lisinopriL 0 Yes [id number] 2.5mg Take 1 [facility] 2.5 mg 4-17 tablet by ity of tablet 00:00: mouth in [place] the morning. Branch metoprolol 2022-0 Yes [id number] 25mg Take 1 U nivers tartrate 25 4-17 tablet by ity of mg tablet 00:00: mouth in [facility] the morning Branch and 1 tablet in the evening. blood sugar 2022-0 Yes [id number] Check U nivers diagnostic 4-17 blood ity of strip 00:00: sugar 2 [place] times a Medical day. Branch E11.9. Brand per insurance. Uses ACCU-CHEK machine Lancets Yes [id number] Check Unive rs Misc 4-17 blood ity of 00:00: sugar 2 [place] times a Medical day. Branch E11.9. Brand per insurance. gabapentin Yes [id number] 300mg Take 1 [facility] 300 mg 4-17 capsule by ity of capsule 00:00: mouth in [place] the morning Branch and 1 capsule at noon and 1 capsule in the evening. amiodarone 0 Yes [id number] 200mg Take 1 [facility] 200 mg 4-17 tablet by ity of tablet 00:00: mouth in [place] the morning. Branch apixaban 5 0 Yes 5mg Take 1 Unive rs mg tablet 4-17 tablet by ity o f 00:00: mouth in [place] the Branch and 1 tablet in the evening. Indication s: ATRIAL FIBRILLATI ON atorvastati 2022-0 Yes [id number] 40mg Take 1 Univers n 40 mg 4-17 tablet by ity of tablet 00:00: mouth at [place] [address] bedtime. Medical Branch SERTraline 2022-0 Yes [id number] 100mg Take 1 [facility] 100 mg 4-17 tablet by ity of tablet 00:00: mouth in [place] the morning. Branch lisinopriL 2022-0 Yes [id number] 2.5mg Take 1 [facility] 2.5 mg 4-17 tablet by ity of tablet 00:00: mouth in [place] [address] the morning. Branch metoprolol 2022-0 Yes [id number] 25mg Take 1 U nivers tartrate 25 4-17 tablet by ity [facility] mg tablet 00:00[facility] Branch and 1 tablet in the evening. blood sugar Yes [id number] Check U nivers diagnostic 4-17 blood ity of strip 00:00: sugar 2 [place] 00 times a Medical day. Branch E11.9. Brand per insurance. Uses ACCU-CHEK machine Lancets Yes [id number] Check Unive rs Misc 4-17 blood ity of 00:00: sugar 2 [place] times a Medical day. Branch E11.9. Brand per insurance. gabapentin Yes [id number] 300mg Take 1 [facility] 300 mg 4-17 capsule by ity of capsule 00:00: mouth in [place] the morning Branch and 1 capsule at noon and 1 capsule in the evening. amiodarone Yes [id number] 200mg Take 1 [facility] 200 mg 4-17 tablet by ity of tablet 00:00: mouth in [place] 00 the morning. Branch apixaban 5 Yes 5mg Take 1 Unive rs mg tablet 4-17 tablet by ity o f 00:00: mouth in [place] the morning Branch and 1 tablet in the evening. Indication s: ATRIAL FIBRILLATI ON atorvastati Yes [id number] 40mg Take 1 Univers n 40 mg 4-17 tablet by ity of tablet 00:00: mouth at [place] 00 bedtime. Medical Branch SERTraline Yes [id number] 100mg Take 1 [facility] 100 mg 4-17 tablet by ity of tablet 00:00: mouth in [place] 00 the morning. Branch lisinopriL Yes [id number] 2.5mg Take 1 [facility] 2.5 mg 4-17 tablet by ity of tablet 00:00: mouth in [place] 00 the Medical morning. Branch metoprolol Yes [id number] 25mg Take 1 U nivers tartrate 25 4-17 tablet by ity of mg tablet 00:00: mouth in [facility] s 00 the morning Branch and 1 tablet in the evening. blood sugar 0 Yes [id number] Check U nivers diagnostic 4-17 blood ity of strip 00:00: sugar 2 [place] 00 times a Medical day. Branch E11.9. Brand per insurance. Uses ACCU-CHEK machine Lancets Yes [id number] Check Unive rs Misc 4-17 blood ity of 00:00: sugar 2 [place] times a Medical day. Branch E11.9. Brand per insurance. gabapentin Yes [id number] 300mg Take 1 [facility] 300 mg 4-17 capsule by ity of capsule 00:00: mouth in [place] 00 the Medical morning Branch and 1 capsule at noon and 1 capsule in the evening. amiodarone Yes [id number] 200mg Take 1 [facility] 200 mg 4-17 tablet by ity of tablet 00:00: mouth in [place] 00 the morning. Branch apixaban 5 Yes 5mg Take 1 Unive rs mg tablet 4-17 tablet by ity o f 00:00: mouth in [place] 00 the Medical morning Branch and 1 tablet in the evening. Indication s: ATRIAL FIBRILLATI ON atorvastati Yes [id number] 40mg Take 1 Univers n 40 mg 4-17 tablet by ity of tablet 00:00: mouth at [place] [address] bedtime. Medical Branch SERTraline Yes [id number] 100mg Take 1 [facility] 100 mg 4-17 tablet by ity of tablet 00:00: mouth in [place] the morning. Branch lisinopriL Yes [id number] 2.5mg Take 1 Univers 2.5 mg 4-17 tablet by ity of tablet 00:00: mouth in [place] the morning. Branch metoprolol Yes [id number] 25mg Take 1 U nivers tartrate 25 4-17 tablet by ity of mg tablet 00:00: mouth in [facility] 00 the Medical morning Branch and 1 tablet in the evening. blood sugar Yes [id number] Check U nivers diagnostic 4-17 blood ity of strip 00:00: sugar 2 [place] 00 times a Medical day. Branch E11.9. Brand per insurance. Uses ACCU-CHEK machine Lancets Yes [id number] Check Unive rs Misc 4-17 blood ity of 00:00: sugar 2 [place] 00 times a Medical day. Branch E11.9. Brand per insurance. SERTraline Yes [id number] 100mg Take 1 [facility] 100 mg 4-17 tablet by ity of tablet 00:00: mouth in [place] 00 the Medical morning. Branch SERTraline 2022- No [id number] 100mg Take 1 [facility] 100 mg 08-05-19 tablet by ity of tablet 00:00: 00:00 mouth in [place] 00 :00 the Medical morning. Branch gabapentin 2022- No [id number] 300mg Take 1 [facility] 300 mg 08-05-18 capsule by ity of capsule 00:00: 00:00 mouth in [place] 00 :00 the Medical morning Branch and 1 capsule at noon and 1 capsule in the evening. amiodarone 2022- No [id number] 200mg Take 1 [facility] 200 mg 08-05-18 tablet by ity of tablet 00:00: 00:00 mouth in [place] 00 :00 the Medical morning. Branch apixaban 5 2022- No 5mg Take 1 Univ ers mg tablet 08-0518 tablet by ity of 00:00: 00:00 mouth in [place] 00 :00 the Medical morning Branch and 1 tablet in the evening. Indication s: ATRIAL FIBRILLATI ON atorvastati 2022- No [id number] 40mg Take 1 Univers n 40 mg 08-05-18 tablet by ity of tablet 00:00: 00:00 mouth at [place] 00 :00 bedtime. Medical Branch lisinopriL 2022- No [id number] 2.5mg Take 1 Univers 2.5 mg 08-05-18 tablet by ity of tablet 00:00: 00:00 mouth in [place] 00 :00 the Medical morning. Branch metoprolol 2022- No [id number] 25mg Take 1 Univers tartrate 25 08-05-18 tablet by it y of mg tablet 00:00: 00:00 mouth in [facility] as 00 :00 the Medical morning Branch and 1 tablet in the evening. blood sugar 2022- No [id number] Check Univers diagnostic 08-05-18 blood ity of strip 00:00: 00:00 sugar 2 [place] 00 :00 times a Medical day. Branch E11.9. Brand per insurance. Uses ACCU-CHEK machine Lancets 2022- No [id number] Check Univ ers Misc 08-0518 blood ity of 00:00: 00:00 sugar 2 [place] 00 :00 times a Medical day. Branch E11.9. Brand per insurance. blood sugar 2022-0 3- No [id number] Check Univers diagnostic 4-17 -17 blood ity of strip 00:00: 00:00 sugar 2 [place] 00 :00 times a Medical day. Branch E11.9. Brand per insurance. Uses ACCU-CHEK machine blood sugar 2022-0 2023- No [id number] Check Univers diagnostic 4-17 - blood ity of strip 00:00: 00:00 sugar 2 [place] 00 :00 times a Medical day. Branch E11.9. Brand per insurance. Uses ACCU-CHEK machine blood sugar 2022-0 2023- No [id number] Check Univers diagnostic 4-17 - blood ity of strip 00:00: 00:00 sugar [...] 100mg Take 1 Uni vers 100 mg 07-31-17 tablet by ity of tablet 00:00: 00:00 mouth in [place] 00 :00 the Medical morning. Branch amiodarone 2023-0 2023- No 200mg Take 1 Uni vers 200 mg 4-03 24-17 tablet by ity of tablet 00:00: 00:00 mouth in [place] 00 :00 the Medical morning. Branch SERTraline 3-0 2023- No 100mg Take 1 Uni vers 100 mg 07-31-17 tablet by ity of tablet 00:00: 00:00 mouth in [place] 00 :00 the Medical morning. Branch amiodarone 2023-0 2023- No 200mg Take 1 Uni vers 200 mg 07-31-17 tablet by ity of tablet 00:00: 00:00 mouth in [place] 00 :00 the Medical morning. Branch SERTraline 2023-0 2023- No 100mg Take 1 Uni vers 100 mg 07-31-17 tablet by ity of tablet 00:00: 00:00 mouth in [place] 00 :00 the Medical morning. Branch sodium Yes Topical, Univers hypochlorit 4-11 BID, First it y of e 0.025% 01:00: dose on [place] ([facility]) 00 Fri Medical solution 07/29/22 at [facility] h 2000, Until Discontinu ed, Routine iron 2022- No 500mg 500 mg, IV Unive rs sucrose 07-29 Infusion, ity of (VENOFER) 19:15: 23:11 ONCE, [place] 500 mg in 00 :00 Administer Medi dilshad NaCl 0.9% over 2.5 Branch (NS) 250 mL Hours, On infusion 07/29/22 at 1415, For 1 dose iopamidol 2022- No [id number] 80mL 80 mL, Univers (ISOVUE 07-29 Intravenou ity o f 370-500 mL) 16:26: 16:26 s, ONCE, 1 [place] injection 00 :00 dose, On Medica l 80 mL Mon Branch 07/29/22 at 1145, Routine lidocaine 2022-2022- No 20mL 20 mL, Unive rs 1% 07-29 Infiltrati ity of (XYLOCAINE) 16:00: 15:27 on, ONCE, [place] 10 mg/mL (1 00 :00 1 dose, On Me dical %) Mon Branch injection 07/29/22 at 20 mL 1100, STAT lactated 2022- No 1000mL at 100 [facility] ringers IV 07-29 04-10 mL/hr, ity of infusion 15:30: 15:36 1,000 mL, [place] as 1,000 mL 00 :20 Intravenou Medic al s, ONCE, 1 Branch dose, On 07/29/22 at 1030, Routine acetaminoph Yes 650mg 650 mg, Un anil en 07-29 Oral, ity of (TYLENOL) 01:52: Q6HPRN, [place] tablet 650 10 Starting Medic al mg on [facility] 07/28/22 at 205, Until Discontinu ed, Routine, Pain (scale 1-3), Temp > 38 C sodium 2022- No 50meq 50 mEq, [facility] s bicarbonate 07-28-09 Slow IV ity of 1 mEq/mL 20:00: 19:38 Push, [place] (8.4 %) 00 :00 ONCE, 1 Medical injection dose, On Branch 50 mEq [place] 07/28/22 at 1500, Routine amiodarone Yes 200mg 200 mg, Uni vers (PACERONE) 07-28 Oral, ity of tablet 200 14:00: DAILY, [place] mg 00 First dose Medical on [facility] 07/28/22 at 0900, Until Discontinu ed, Routine SERTraline Yes 25mg 25 mg, Unive rs (ZOLOFT) 07-28 Oral, ity of tablet 25 14:00: DAILY, [place] mg 00 First dose Medical on [facility] 07/28/22 at 0900, Until Discontinu ed, Routine Sliding Yes Subcutaneo [facility] Scale 07-28 us, TID ity of Insulin - 13:00: MEALS+HS, [place] as Lispro 00 First dose Medical (HumaLOG) + on Sun Branch [facility] 07/28/22 at Testing 0800, Until Discontinu ed, Routine levETIRAcet 0 2022- No 500mg 500 mg, U nivers am (KEPPRA) 07-28-11 Oral, BID, i ty of tablet 500 13:00: 12:48 First dose [place] mg 00 :43 on [place] Medical 07/28/22 at Branch 0800, Until Discontinu ed, Routine vancomycin 2022- No 15mg/kg 1,500 mg Univers (VANCOCIN) 07-28 (rounded ity of 1,500 mg in 11:00: 13:55 from 1,380 [place] NaCl 0.9% 00 :31 mg = 15 Medical (NS) 500 mL mg/kg ?92 Bra [facility] VIAL-MATE kg), IV IV Piggyback, piggyback Q24H ABX, 7 doses, First dose (after last modificati on) on [place] 07/28/22 at 0600, Last dose on [facility] 08/03/22 at 0600, Administer over 90 Minutes, 500 mL
Reas on for Anti-Infec tive: Documented Infection< br>Documen yana Infection Site: Skin / Soft Tissue
Duration of Therapy: 7 days furosemide 2022- No 20mg 20 mg, Univ ers (LASIX) 07-28 Slow IV ity of injection 10:30: 10:30 Push, [place] 20 mg 00 :00 ONCE, 1 Medical dose, On Branch [place] 07/28/22 at 0530, Routine NaCl 0.9% 2022- No 500mL at 999 Univ ers (NS) bolus 07-28 mL/hr, 500 it y of infusion 09:54: 11:57 mL, IV [place] 500 mL 00 :00 Piggyback, Medical ONCE, 1 Branch dose, On [place] 07/28/22 at 0500, STAT lactated 2022- No 1000mL at 999 [facility] ringers IV 07-28 mL/hr, ity of infusion 08:30: 09:06 1,000 mL, [place] as 1,000 mL 00 :00 Intravenou Medic al s, ONCE, 1 Branch dose, On [place] 07/28/22 at 0330, Routine HEPARIN 2022- No 4000U 4,000 Univers SODIUM 07-28 Units, IV ity of (PORCINE) 07:45: 08:24 Push, [place] 1,000 00 :00 ONCE, 1 Medical UNIT/ML dose, On Branch BOLUS ACS [place] 07/28/22 ORDER SET at 0245, GELA dextrose 2022-0 Yes 250mL 250 mL, IV Un anil 10% (D10W) 409 Infusion, ity of bolus 07:32: PRN - SEE [place] infusion 32 INSTRUCTIO Medic al 250 mL NS, Branch Administer over 60 Minutes, Other, If blood glucose is < or = 70 mg/dL and patient is unable to swallow or has mental status changes, Starting on [place] 07/28/22 at 0232
If blood glucose is [...] glucose is < 80 mg/dL, repeat.
glucagon 2022-0 Yes 1mg 1 mg, Univers (GLUCAGEN 07-28 Intramuscu ity of DIAGNOSTIC 07:32: [place], [place] KIT) 26 Starting Medical injection 1 on [facility] 07/28/22 at 0232, Until Discontinu ed, GELA, Blood Glucose < or = 70 mg/dL and patient is NPO, unable to swallow or has mental changes. heparin 2022-0 2023- No 0U/h 0-2,150 Univer s 25,000 07-28 04-10 Units/hr ity of Units/250 07:30: 14:43 (0-21.5 [place] mL 20 :03 mL/hr), IV Medical (Premixed Infusion, Branc h Bag) in TITRATE, 0.45 % NS Parameters in Admin. Instr., Starting on [place] 07/28/22 at 0230
In itiate dosing:&nb sp; [...] Rang e, Dosing and Testing: &nbs p;FOR [facility] ONLY &nbs p; - aPTT < 35: [...] Starting [place] mL vial) 11 :03 on [facility] for 07/28/22 at Branch Rebolusing 0230, Until 07/29/22 at 0943, Routine
Dosing based on aPPT testing parameters (refer to continuous heparin drip order).
ceFEPIme 2022- No 1000mg 1,000 mg, U nivers (MAXIPIME) 07-28 IV ity of 1,000 mg in 07:30: 09:39 Piggyback, [place] NaCl 0.9% 00 :00 ONCE, 1 Medical (NS) 100 mL dose, On [facility] MINI-BAG 07/28/22 at 0230, Administer over 30 Minutes, 100 mL
Reas on for Anti-Infec tive: Documented Infection< br>Documen yana Infection Site: Skin / Soft Tissue
Duration of Therapy: 7 days metroNIDAZO 2022- No 500mg 500 mg, IV Univers LE in NaCl 07-28 04-09 Infusion, ity of (iso-os) 07:30: 14:01 Q12H [...] 250 mL 00 Q24H ABX, Med ical VIAL-nail technician dose Bran ch IV on Fri piggyback [...]
Duration of Therapy: Other (see Comments) cephALEXin 2022-0 Yes [id number] 500mg Take 1 Univers (KEFLEX) 07-19 capsule by ity o f 500 mg 00:00: mouth 4 [place] capsule 00 (four) Medical times Branch daily. cephALEXin 2022- No [id number] 500mg Take 1 Univers (KEFLEX) 07-19- capsule by ity of 500 mg 00:00: 00:00 mouth 4 [place] capsule 00 :00 (four) Medical times Branch daily. HYDROcodone 2022-0 2022- Yes [id number] 1{tbl} Take 1 U nivers -acetaminop 07-19 tablet by it y of hen (NORCO) 00:00: 04:59 [place] 10-325 mg 00 :00 every 6 Medical tablet (six) Branch hours as needed for Pain (scale 7-10) for up to 7 days. Indication s: acute pain sulfamethox 2022-0 2022- Yes [id number] 2{tbl} Take 2 Univers azole-trime 07-19 tablets [...] OF JUICE OR WATER HYDROcodone 2022-0 Yes [id number] 1{tbl} Q6H Take 1 M ethodi -acetaminop [...] 2 l (two) times a day. docusate 3-0 Yes 100mg Q.5D Take 1 Method i [...] OF JUICE OR WATER HYDROcodone 2022-0 Yes [id number] 1{tbl} Q6H Take 1 M ethodi -acetaminop [...] 2 l (two) times a day. docusate 3-0 Yes 100mg Q.5D Take 1 Method i [...] OF JUICE OR WATER HYDROcodone 3-0 Yes [id number] 1{tbl} Q6H Take 1 M ethodi -acetaminop [...] SLIDING l subcutaneou SCALE s pen acetaminoph 3-0 Yes 650mg Q6H Take 2 Met hodi [...] OF JUICE OR WATER HYDROcodone 2022-0 Yes [id number] 1{tbl} Q6H Take 1 M ethodi -acetaminop [...] hours as needed for fever. lidocaine 4 2022-[address] 1 Met hodi % 3-[address] 00:00: the skin [facility]osp[facility] 00 daily. l Remove and discard patch within 12 hours or as directed by physician. lidocaine 4 2022-[address] 1 Met hodi % 3-[address] 00:00: the skin [facility]ospita 00 daily. l Remove and discard patch within 12 hours or as directed by physician. lidocaine 4 2022-[address] 1 Met hodi % 3-[address] 00:00: the skin Hospita 00 daily. l Remove and discard patch within 12 hours or as directed by physician. lidocaine 4 2022-[address] 1 Met hodi % 3-[address] 00:00: the skin Hospita 00 daily. l Remove and discard patch within 12 hours or as directed by physician. lidocaine 4 2022-[address] 1 Met hodi % 3-[address] 00:00: the skin Hospita 00 daily. l Remove and discard patch within 12 hours or as directed by physician. lidocaine 4 2022-[address] 1 Met hodi % 3-[address] 00:00: the skin Hospita 00 daily. l Remove and discard patch within 12 hours or as directed by physician. lidocaine 4 2022-[address] 1 Met hodi % 3-[address] 00:00: the skin Hospita 00 daily. l Remove and discard patch within 12 hours or as directed by physician. lidocaine 4 2022-[address] 1 Met hodi % 3-15 [...] 12 (twelve) hours for 6 days. vancomycin 2022-0 2022- No 1000mg Q12H Infuse Me thodi [...] 12 (twelve) hours for 6 days. vancomycin 2022-0 2022- No 1000mg Q12H Infuse Me thodi [...] 12 (twelve) hours for 6 days. vancomycin 2022-0 2022- No 1000mg Q12H Infuse Me thodi [...] hours for 6 days. levoFLOXaci 2022-2022- No [id number] 500mg QD Take 1 Methodi n 06-[id number] (Levaquin) 00:00: 00:00 (500 mg Hos ju[facility] jose 500 MG 00 :00 total) by l tablet mouth daily. levoFLOXaci 2023-0 3- No [id number] 500mg QD Take 1 Methodi n 06-[id number] (Levaquin) 00:00: 00:00 (500 mg [facility] 500 MG 00 :00 total) by l tablet mouth daily. levoFLOXaci 3-0 3- No [id number] 500mg QD Take 1 Methodi n 06-[id number] (Levaquin) 00:00: 00:00 (500 mg [facility] 500 MG 00 :00 total) by l tablet mouth daily. levoFLOXaci 3-0 3- No [id number] 500mg QD Take 1 Methodi n 06-[id number] (Levaquin) 00:00: 00:00 (500 mg [...] 00 total) by l mouth daily. cephalexin 2023-0 2023- No Method i (KEFLEX) 06-05-15 st 500 MG 00:00: 00:00 Hospita capsule 00 :00 l cephalexin 2023-0 2023- No Method i (KEFLEX) 06-05-15 st 500 MG 00:00: 00:00 Hospita capsule 00 :00 l cephalexin 2023-0 2023- No Method i (KEFLEX) 06-05-15 st 500 MG 00:00: 00:00 Hospita capsule 00 :00 l cephalexin 2023-0 2023- No Method i (KEFLEX) 06-05-15 st 500 MG 00:00: 00:00 Hospita capsule 00 :00 l benzonatate 2023-0 Yes Take by Met hodi (TESSALON) [address] 100 MG 00:00: Hospita capsule 00 l benzonatate 2022-0 Yes Take by Met hodi (TESSALON) [address] 100 MG 00:00: Hospita capsule 00 l benzonatate 2022-0 Yes Take by Met hodi (TESSALON) [address] 100 MG 00:00: Hospita capsule 00 l benzonatate 2022-0 Yes Take by Met hodi (TESSALON) [address] 100 MG 00:00: Hospita capsule 00 l sennosides- 2022-0 2022- No 2{tbl} Take 2 [...] :00 l 8.6-50 mg per tablet insulin 2022-0 2022- No 14U QD Inject Methodi detemir 05-[address] U-100 00:00: 05:59 (14 Units Hospit a (Levemir 00 :00 total) l U-100 under the Insulin) skin daily 100 unit/mL for 30 injection days. metoprolol 2022-0 2022- No 25mg Q.5D Take 1 Meth gre[facility] tartrate 05-14 tablet (25 st (LOPRESSOR) 00:00: 05:59 mg total) Hospita 25 mg 00 :00 by mouth 2 l tablet (two) times a day for 30 days. acetaminoph 2022- No 650mg Q6H Take 2 Me thodi en 05-14- tablets st (TYLENOL) 00:00: 05:59 (650 mg [...] Q.5D Take 1 Meth greer (PEPCID) 20 05-14- tablet (20 s t MG tablet 00:00: 05:59 mg total) Ho spita 00 :00 by mouth 2 l (two) times a day for 30 days. polyethylen 2022- No 17g QD Take 17 g Methodi e glycol 05-14- by mouth st (MIRALAX) 00:00: 05:59 daily for Ho spita 17 gram 00 :00 30 days. l packet senna 2022- No 2{tbl} Q24H Take 2 Methodi (SENOKOT) 05-14- tablets by st 8.6 mg 00:00: 05:59 mouth Hospita tablet 00 :00 daily as l needed for constipati on for up to 30 days. sertraline 2022-0 2022- No 50mg QD Take 1 Meth [...] cough for up to 30 days. docusate 0 2022- No 100mg Q.5D Take 1 Metho [...] No 2{tbl} Q24H Take 2 Methodi (SENOKOT) 1-24 02-[address] 8.6 mg 00:00: 05:59 [...] l mouth daily for 30 days. cefTRIAXone 2022- No 2g Q12H Infuse 2 g Methodi (ROCEPHIN) 05-[address] 2 g in 100 00:00: 05:59 venous [facility] ML Mini-Bag 00 :00 catheter l Plus every 12 (twelve) hours for 10 days. HYDROcodone 2022- No [id number] 1{tbl} Q6H Take 1 Methodi -acetaminop 05-[address] hen (Broadchoice) 00:00: 05:59 mouth [facility] 10-325 mg [...] 12 (twelve) hours for 10 days. HYDROcodone 2022-2022- [place] [id number] 1{tbl} Q6H Take 1 Methodi -acetaminop 05-[address] [facility] (Broadchoice) 00:00: 05:59 mouth [facility] 10-325 mg [...] 12 (twelve) hours for 10 days. HYDROcodone 2022- No [id number] 1{tbl} Q6H Take 1 Methodi -acetaminop 05-[address] hen (Broadchoice) 00:00: 05:59 mouth [facility] 10-325 mg 00 :00 every 6 l per tablet (six) hours as needed for moderate pain or severe pain for up to 7 days .acute pain. Max Daily Amount: 4 tablets cefTRIAXone 2022- No 2g Q12H Infuse 2 g Methodi (ROCEPHIN) 05-[address] 2 g in 100 00:00: 05:59 venous [facility] ML Mini-Bag 00 :00 catheter l Plus every 12 (twelve) hours for 10 days. [place] 2022- [place] [id number] 1{tbl} Q6H Take 1 Methodi -acetaminop 05-[address] hen (Broadchoice) 00:00: 05:59 mouth [facility] 10-325 mg 00 :00 every 6 l per tablet (six) hours as needed for moderate pain or severe pain for up to 7 days .acute pain. Max Daily Amount: 4 tablets apixaban 2021-04- No 5mg Q.5D Take 1 [...] mouth l daily for 30 days. gabapentin 2021-04- No 300mg QD Take 1 Met hodi (NEURONTIN) 05-[address] 300 mg 00:00: 05:59 (300 mg Hospita capsule 00 :00 total) by l mouth nightly for 30 days. insulin 2021-04- No 0U [id number] Inject M ethodi lispro 05-25 [id number] 0-[address] (ADMELOG) 00:00: 05:59 3D [...] mouth l daily for 30 days. gabapentin 2021-04- No 300mg QD Take 1 Met hodi (NEURONTIN) - capsule st 300 mg 00:00: 05:59 (300 mg Hospita capsule 00 :00 total) by l mouth nightly for 30 days. insulin 2021-04- No 0U [id number] Inject M ethodi lispro 05-25 [id number] 0-[address] (ADMELOG) 00:00: 05:59 3D under the Ho spita 100 unit/mL 00 :00 skin 3 l injection (three) times a day before meals for 30 days. amIODarone 2021-04- No 200mg Q.5D Take 1 Met hodi (PACERONE) - tablet st 200 MG 00:00: 05:59 (200 mg Hospita tablet 00 :00 total) by l mouth every 12 (twelve) hours for 30 days. apixaban 2021-04 No 5mg Q.5D Take [...] for 30 days. insulin 2021-04- No 0U [id number] Inject M ethodi lispro 05-25 [id number] 0-[address] (ADMELOG) 00:00: 05:59 3D under the Ho spita 100 unit/mL 00 :00 skin 3 l injection (three) times a day before meals for 30 days. amIODarone 2021-04 No 200mg Q.5D Take 1 Met hodi (PACERONE) 05-[address] 200 MG 00:00: 05:59 (200 mg Hospita tablet 00 :00 total) by l mouth every 12 (twelve) hours for 30 days. apixaban 2021-04 No 5mg Q.5D Take [...] l mouth nightly for 30 days. insulin 2021-04 No 0U [id number] Inject M ethodi lispro 05-25 [id number] 0-[address] (ADMELOG) 00:00: 05:59 3D [...] 20U QD Inject 0.2 Met hodi detemir - mL (20 st U-100 00:00: 00:00 Units [...] times a day for 30 days. insulin 2021-04 No 20U QD Inject 0.2 Met hodi detemir 2-24 mL (20 st U-100 00:00: 00:00 Units [...] 20U QD Inject 0.2 Met hodi detemir 2-24 mL (20 st U-100 00:00: 00:00 Units Hospita (Levemir 00 :00 total) l U-100 under the Insulin) skin daily 100 unit/mL for 30 injection days. metoprolol 2021-04 No 12.5mg Q.5D Take 0.5 Methodi tartrate 230 -[address] (LOPRESSOR) 00:00: 00:00 (12.5 mg H ospita 25 mg 00 :00 total) by l tablet mouth 2 (two) times a day for 30 days. acyclovir 2021-04- No 400mg Q.5D Take 2 Meth greer (ZOVIRAX) 2-[address] 200 MG 00:00: 05:59 (400 mg Hospita capsule 00 :00 total) by l mouth 2 (two) times a day for 10 days. acyclovir 2021-04- No 400mg Q.5D Take 2 Meth gre[facility] (ZOVIRAX) 2-[address] 200 MG 00:00: 05:59 (400 mg Hospita capsule 00 :00 total) by l mouth 2 (two) times a day for 10 days. acyclovir 2021-04- No 400mg Q.5D Take 2 Meth gre[facility] (ZOVIRAX) 2-[address] 200 MG 00:00: 05:59 (400 mg Hospita capsule 00 :00 total) by l mouth 2 (two) times a day for 10 days. acyclovir 2021-04- No 400mg Q.5D Take 2 Meth greer (ZOVIRAX) -[address] 200 MG 00:00: 05:59 (400 mg Hospita capsule 00 :00 total) by l mouth 2 (two) times a day for 10 days. apixaban 2021-04- No 5mg Q.5D Take [...] Q.5D Take 1 Method i (ELIQUIS) 5 -07 tablet (5 st mg tablet 00:00: 05:59 [...] QD Take 2 Met hodi n (LIPITOR) 24 12-[address] 20 mg 00:00: 00:00 (40 mg Hospita tablet 00 :00 total) by l mouth daily for 30 days. insulin 2021-04 No 30U QD Inject 0.3 Met hodi detemir 24 12-30 mL (30 st U-100 00:00: 00:00 Units Hospita (Levemir 00 :00 total) l U-100 under the Insulin) skin daily 100 unit/mL for 30 injection days. insulin 2021-04- No 0U [id number] Inject M ethodi lispro 05-14-30 [id number] 0-[address] (ADMELOG) 00:00: 00:00 3D under the Ho spita 100 unit/mL 00 :00 skin 3 l injection (three) times a day before meals for 30 days. gabapentin 2021-04- No 300mg QD Take 1 Met hodi (NEURONTIN) 05-14-[address] 300 mg 00:00: 00:00 (300 mg Hospita capsule 00 :00 total) by l mouth nightly for 30 days. aspirin 2021-04- No 81mg QD Take 1 Methodi (ECOTRIN) 05-14-30 tablet (81 st 81 MG 00:00: 00:00 mg total) Hospit a enteric 00 :00 by mouth l coated daily for tablet 30 days. clopidogreL 2021-04- No 75mg QD Take 1 Met hodi (PLAVIX) 75 05-14-30 tablet (75 s t mg tablet 00:00: [...] 30 injection days. insulin 2021-04- No 0U [id number] Inject M ethodi lispro 05-14 [id number] 0-[address] (ADMELOG) 00:00: 00:00 3D under the [facility] 100 unit/mL 00 :00 skin 3 l injection (three) times a day before meals for 30 days. gabapentin 2021-04- No 300mg QD Take 1 Met [facility] (NEURONTIN) 05-14-[address] 300 mg 00:00: 00:00 (300 mg Hospita capsule 00 :00 total) by l mouth nightly for 30 days. aspirin 2021-04- No 81mg QD Take 1 [facility] (ECOTRIN) [...] l mouth daily for 30 days. insulin 2021-04 No 30U QD Inject 0.3 Met hodi detemir 05-14-30 mL (30 st U-100 00:00: 00:00 Units Hospita (Levemir 00 :00 total) l U-100 under the Insulin) skin daily 100 unit/mL for 30 injection days. insulin 2021-04 No 0U [id number] Inject M ethodi lispro 05-14- [id number] 0-[address] (ADMELOG) 00:00: 00:00 3D [...] QD Take 1 Met [facility] (PLAVIX) 75 05-14-30 tablet (75 s t mg tablet 00:00: 00:00 mg total) [facility] 00 :00 by mouth l daily for 30 days. atorvastati 2021-04 No 40mg QD Take 2 Met hodi n (LIPITOR) 05-14- tablets st 20 mg 00:00: 00:00 (40 mg Hospita tablet 00 :00 total) by l mouth daily for 30 days. insulin 2021-04 No 30U QD Inject 0.3 Met hodi detemir 05-14 mL (30 st U-100 00:00: 00:00 Units Hospita (Levemir 00 :00 total) l U-100 under the Insulin) skin daily 100 unit/mL for 30 injection days. insulin 2021-04 No 0U [id number] Inject M ethodi lispro 05-14 [id number] 0-[address] (ADMELOG) 00:00: 00:00 3D [...] mouth l daily for 30 days. ciprofloxac 2021-04 No 500mg Q.5D Take 1 Me thodi [...] Q.5D Take 1 Me th[facility] in (Cipro) 05-14- tablet st 500 MG 00:00: 05:59 (500 mg Hospita tablet 00 :00 total) by l mouth 2 (two) times a day for 14 days. doxycycline 2021-04- No 50mg Q.5D Take 1 Met [facility] (VIBRAMYCIN 24 - capsule st ) 50 MG 00:00: 05:59 [...] 50mg Q.5D Take 1 [facility] (VIBRAMYCIN 24 03-[address] ) 50 MG 00:00: 05:59 (50 mg Hospita capsule 00 :00 total) by l mouth 2 (two) times a day for 14 days. metFORMIN 2021- No metformin [facility] (GLUCOPHAGE 8- 08-23 1,[address] ) 1,000 mg 10:46: 00:00 tablet [facility] tablet 19 :00 Take 1 l tablet twice a day by oral route for 90 days. metFORMIN 2021- No metformin [facility] (GLUCOPHAGE 8- 08-23 1,[address] ) 1,000 mg [...] metFORMIN 2022- No metformin [facility] (GLUCOPHAGE 8-26 01-24 1,[address] ) 1,000 mg 00:00: 00:00 tablet [facility] tablet 00 :00 Take 1 l tablet twice a day by oral route for 90 days.Stren gth: 1,000 mg metFORMIN 2022- No metformin [facility] (GLUCOPHAGE 8-26 01-24 1,[address] ) 1,000 mg 00:00: 00:00 tablet [facility] tablet 00 :00 Take 1 l tablet twice a day by oral route for 90 days.Stren gth: 1,000 mg metFORMIN 2022- No metformin [facility] (GLUCOPHAGE 805-14 1,[address] ) 1,000 mg 00:00: 00:00 tablet [facility] tablet 00 :00 Take 1 l tablet twice a day by oral route for 90 days.Stren gth: 1,000 mg metFORMIN 2022- No metformin [facility] (GLUCOPHAGE 805-14 1,[address] ) 1,000 mg 00:00: 00:00 tablet [facility] tablet 00 :00 Take 1 l tablet twice a day by oral route for 90 days.Stren gth: 1,000 mg nicotine 2021- No 1{patch QD Place 1 Me [facility] (NICODERM 801-14 } patch on st CQ) 21 00:00: 04:59 the skin Hospit a mg/24 hr 00 :00 daily for l 30 days. nicotine 2021- No 1{patch QD Place 1 Me [facility] (NICODERM 801-14 } patch on st CQ) 21 00:00: 04:59 the skin Hospit a mg/24 hr 00 :00 daily for l 30 days. nicotine 2021- No 1{patch QD Place 1 Me [facility] (NICODERM 801-14 } patch on st CQ) 00:00: 04:59 the skin Hospit a mg/24 hr 00 :00 daily for l 30 days. nicotine 2021- No 1{patch QD Place 1 Me [facility] (NICODERM 8 09-26 } patch on st CQ) 00:00: 04:59 the skin Hospit a mg/24 hr 00 :00 daily for l 30 days. nicotine 2021-2021- No 1{patch QD Place 1 [facility] (NICODERM 8 09-26 } patch on st CQ) 00:00: 04:59 the skin Hospit a mg/24 hr 00 :00 daily for l 30 days. nicotine 2021- No 1{patch QD Place 1 Me [facility] (NICODERM 8 09-26 } patch on st CQ) 00:00: 04:59 the skin Hospit a mg/24 [...] a capsule day for 10 days. traMADoL 50mg Q6H Take 1 Metho di (ULTRAM) 50 -08 11-29 tablet (50 s t mg tablet 00:00: 04:59 mg total) [facility] 00 :00 by mouth l every 6 (six) hours as needed for moderate pain for up to 7 days .acute pain. traMADoL 93436 50mg Q6H Take 1 Metho di (ULTRAM) 50 7-08 11-29 tablet (50 s t mg tablet 00:00: 04:59 mg total) [facility] 00 :00 by mouth l every 6 (six) hours as needed for moderate pain for up to 7 days .acute pain. traMADoL 28 50mg Q6H Take 1 Metho di (ULTRAM) 50 11-08- tablet (50 s t mg tablet 00:00: 04:59 mg total) [facility] 00 :00 by mouth l every 6 (six) hours as needed for moderate pain for up to 7 days .acute pain. traMADoL 28 50mg Q6H Take 1 Metho di (ULTRAM) 50 -08 11-29 tablet (50 s t mg tablet 00:00: 04:59 mg total) [facility] 00 :00 by mouth l every 6 (six) hours as needed for moderate pain for up to 7 days .acute pain. traMADoL 28 50mg Q6H Take 1 Metho di (ULTRAM) 50 7-08 11-29 tablet (50 s t mg tablet 00:00: 04:59 mg total) [facility] 00 :00 by mouth l every 6 (six) hours as needed for moderate pain for up to 7 days .acute pain. traMADoL 28 50mg Q6H Take 1 Metho di (ULTRAM) 50 7-08 11-29 tablet (50 s t mg tablet 00:00: 04:59 mg total) [facility] 00 :00 by mouth l every 6 (six) hours as needed for moderate pain for up to 7 days .acute pain. losartan 2022-0 Yes [facility] (COZAAR) 50 6-14 [...] :00 l 875-125 mg per tablet ibuprofen 2021-0 2022- No [facility] (ADVIL) 600 6-14 08-26 st MG tablet 00:00: 00:00 Hospita 00 :00 l amoxicillin 2-0 2022- No Metho di -pot 6-14 08-26 st clavulanate 00:00: 00:00 Hospi ta (AUGMENTIN) 00 :00 l 875-125 mg per tablet ibuprofen 2021-0 2022- No [facility] (ADVIL) 600 6-14 08-26 st MG tablet 00:00: 00:00 Hospita 00 :00 l amoxicillin 2-0 2022- No Metho di -pot 6-14 08-26 st clavulanate 00:00: 00:00 Hospi ta (AUGMENTIN) 00 :00 l 875-125 mg per tablet HumaLOG 2021-0 Yes INJECT 5 Method i U-100 4-[address] Insulin 100 00:00: SUBCUTANEO Hospita unit/mL 00 USLY l subcutaneou BEFORE s vial MEALS. VIAL EXPIRES 28 DAYS AFTER FIRST USE. Lantus 2021-0 Yes INJECT 15 Method i U-100 4-[address] Insulin 100 00:00: SUBCUTANEO [facility]ospita unit/mL 00 USLY AT l injection BEDTIME. (vial) VIAL EXPIRES 28 DAYS AFTER FIRST USE. [facility] 2021-0 Yes Q.25D 4 (four) [facility] Insulin 4-[address] Syringe 1 00:00: day. [facility]ospita mL 30 gauge 00 l x 5/16 syringe HumaLOG 2021-0 Yes INJECT 5 Method i U-100 4-[address] Insulin 100 00:00: SUBCUTANEO [facility]ospita unit/mL 00 USLY l subcutaneou BEFORE s vial MEALS. VIAL EXPIRES 28 DAYS AFTER FIRST USE. Lantus 2021-0 Yes INJECT 15 Method i U-100 4-[address] Insulin 100 00:00: SUBCUTANEO [facility]ospita unit/mL 00 USLY AT l injection BEDTIME. (vial) VIAL EXPIRES 28 DAYS AFTER FIRST USE. [facility] 2021-0 Yes Q.25D 4 (four) [facility] Insulin 4-[address] Syringe 1 00:00: day. [facility]ospita mL 30 gauge 00 l x 5/16 syringe [facility] 2022- No Q.25D 4 (four) [facility]odi Insulin 4-19 01-[address] Syringe 1 00:00: 00:00 day. [facility]ospita mL 30 gauge 00 :00 l x 5/16 syringe [facility] 2022- No Q.25D 4 (four) [facility]odi Insulin 4-19 -[address] Syringe 1 00:00: 00:00 day. [facility]ospita mL 30 gauge 00 :00 l x 5/16 syringe [facility] 2021-2022- No Q.25D 4 (four) [facility] Insulin 4-19 -[address] Syringe 1 00:00: 00:00 day. [facility]ospita mL 30 gauge 00 :00 l x 5/16 syringe [facility] 2022- No Q.25D 4 (four) Me [facility] Insulin 4-19 -[address] Syringe 1 00:00: 00:00 [...] EXPIRES 28 DAYS AFTER FIRST USE. Lantus 2021-2021- No INJECT 15 Metho di U-100 4-19 [...] FIRST USE. atorvastati Yes Take by Met aggiei n (LIPITOR) 3-[address] 20 mg 00:00: Hospita tablet 00 l atorvastati Yes Take by Met hodi n (LIPITOR) 3-[address] 20 mg 00:00: Hospita tablet 00 l Atorvastati No 1{Table Atorvastat 2.16.84 n Calcium 3-11 t} in Calcium 0.1. 113 20 MG Oral 00:00: 20 MG Oral 8 83.4.2 Tablet 00 Tablet; 1 (one) Tablet qhs for 0 days Quantity: 90 {Tablet}Re fills: 0Ordered: 2ELISA Garcia t: 2 Lantus 100 0 No 10{unit Lantus 100 2.16.84 UNIT/ML 06-29 s} UNIT/ML 0.1.113 Subcutaneou 00:00: Subcutaneo 883.4.2 s Solution 00 us Solution; 10 units qhs. for 0 days Quantity: 10 {Millilite r}Refills: 0Ordered: 2Will, [facility] t: 2 True Metrix No 1{Each} True Please 2 .16.84 Blood 06-29 Metrix substitut 0.1.113 Glucose 00:00: Blood e prn. 883.4.2 Test In 00 Glucose Vitro Strip Test In Vitro Strip; 1 (one) Each bid for 0 days Quantity: 60 {Each}Refi lls: 5Ordered: 2[place], [facility] t: 2Comments: Please substitute prn. atorvastati 2021- No Take by [facility] n (LIPITOR) 06-[address] 20 mg 00:00: 00:00 Hospita tablet 00 :00 l atorvastati 2021- No Take by [facility] n (LIPITOR) 06-[address] 20 mg 00:00: 00:00 Hospita tablet 00 :00 l atorvastati 2021- No Take by [facility] n (LIPITOR) 06-[address] 20 mg 00:00: 00:00 Hospita tablet 00 :00 l atorvastati 2021- No Take by [facility] (LIPITOR) 06-[address] 20 mg 00:00: 00:00 Hospita tablet 00 :00 l metFORMIN 2020-04- No Medication 500mg Q.5D Take 1 [facility] (GLUCOPHAGE 0-15 05-03 refill tablet by [facility] ) 500 mg 00:00: 23:59 mouth 2 tablet 00 :00 times daily (with meals) for 90 days. metFORMIN 2020-04- No Medication 500mg Q.5D Take 1 [facility] (GLUCOPHAGE 0-15 05-03 refill tablet by [facility] ) 500 mg 00:00: 23:59 mouth 2 tablet 00 :00 times daily (with meals) for 90 days. cephalexin 2020- No 500mg [id number] Take 1 [facility] (KEFLEX) 01-02 [id number] capsule s t 500 MG 00:00: 04:59 3D (500 mg Hospita capsule 00 :00 total) by l mouth 3 (three) times a day for 7 days. cephalexin 2020- No 500mg Q.[id number] Take 1 [facility] (KEFLEX) 01-02 [id number] capsule s t 500 MG 00:00: 04:59 [...] Memoria 0-27 (Same as: l 20:33: Motrin) [place] 00 "Do Not Crush" Give with food. 24 HR No Notes: [facility]oria Metformin 9-15 (Same as: l hydrochlori 14:00: Glucophage Gu[place] de 500 MG 00 XR) "Do Extended Not Crush" Release Tablet Azithromyci No Notes: [place] betty n 9-15 Take 1 l 14:00: hour [place] 00 before or 2 hours after meals. (Same As: Zithromax) Prednisone No Notes: Memor ia 9-15 Take with l 14:00: food. [place] 00 24 HR Yes 1,000 mg = Memori a Metformin -15 2 tab, PO, l hydrochlori 00:46: BID, # 120 [place] de 500 MG 10 tab, 0 Extended Refill(s), Release Pharmacy: [facility] [place] [id number] [facility] 120 ACTUAT Yes 2 puff, [place] betty Albuterol -15 INHALATION l 0.1 00:46: , QID, # 1 [place] MG/ACTUAT / 00 ea, 0 Ipratropium Refill(s), [place] [facility]: 0.02 [place] [id number] MG/[facility]UAT [facility] Metered Dose Inhaler [Combivent 20/100] predniSONE Yes 20 mg = 1 Me moria 20 mg oral 9-15 tab, PO, l tablet 00:46: Daily, X 3 Keesha nn 00 day, # 3 tab, 0 Refill(s), Pharmacy: [place] [id number] [facility] Insulin No 60 units) [place] betty regular 01-02 WASTE: F/P l 21:18: - Black; E [place] - [employer] Trash Bin Stable for 28 days at room temperatur e Expires in days from ____Date Glucagon No 1 mg, Memoria 01-02 Route: IM, l 21:18: Drug form: [place] PDR/INJ, PRN, Dosing Weight 88.21, kg, PRN Blood Glucose Results, Start date: 01/03/16 16:18:00 CDT, Duration: 30 day, Stop date: 02/02/16 16:17:00 CDT Dextrose No 12.5 gm, Memor ia 50% Syringe 01-02 25 mL, l 21:18: Route: [place] 00 IVP, Drug Form: INJ, Dosing Weight 88.21, kg, PRN, PRN Blood Glucose Results, Start date: 01/03/16 16:18:00 CDT, Duration: 30 day, Stop date: 02/02/16 16:17:00 CDT Albuterol No Notes: Memori a 0.833 MG/ML 01-02 (Same as: l / 19:00: Duoneb) Gu[place] Ipratropium 00 [place] 0.167 MG/ML Inhalant Solution Enoxaparin No Notes: Memor ia 9-14 (Same as: l 14:00: Lovenox) [place] 00 Ceftriaxone No Notes: [place] betty -14 (Same As: l 14:00: Rocephin). Gu[place] 00 Use with 100 mL NS and infuse over 30 min MEDICATION WASTE Product Size: 1000 mg Product Wasted: ___ mg Sodium No 25 mL, Memoria Chloride 01-02 Route: IV, l 0.9% IV 13:53: Start [place] 00 date: 01/03/16 8:53:00 CDT, Duration: 30 day, Stop date: 02/02/16 8:52:00 CDT, PRN Line Flush BD Normal No Notes: Memori a Saline 14 (Same as: l Flush 13:53: BD Gu[place] Posiflush) BD Normal No Notes: Memori a Saline 01-02 (Same as: l Flush 13:52: BD Guille Posiflush) Albuterol No Notes: SEE Me moria 0.83 MG/ML 01-02 RT l Inhalant 13:40: DOCUMENTAT Her mckeon Solution 00 ION (Same as: Proventil) Azithromyci No Notes: [place] betty n -14 Take 1 l 13:40: hour [place] 00 before or 2 hours after meals. (Same As: Zithromax) methylPREDN No Notes: [place] betty ISolone 01-02 (Same l SODium 08:01: as:Solu-ME Keesha nn SUCCinate 00 DROL, A-Methapre d) Saline No Notes: Memoria Flush 0.9% 01-02 (Same as: l 08:01: BD Gu[place] Posiflush) 200 ACTUAT No Notes: Memor ia Albuterol 8-30 (albuterol l 0.09 20:00: 90 [place] MG/ACTUAT 00 microgram/ Metered inh 6.7gm Dose AER) Inhaler WASTE: Aerosol - Return to Pharmacy (Same as: Proventil HFA) clindamycin Yes 450 mg, Mem oria 150 mg oral 8-30 PO, Q8H, X l capsule 19:05: 7 day, # Larry n 00 61 cap, 0 Refill(s) 24 HR Yes 1,000 mg = Memori a Metformin 30 2 tab, PO, l hydrochlori 19:05: BID, # 120 Guille de 500 MG 00 tab, 0 Extended Refill(s) Release Tablet Clindamycin No Notes: [place] betty 30 (Same As: l 19:03: Cleocin) Tylenol No Notes: Do Memor ia 12-18 not exceed l 17:51: 4 gm/day. (Same as: Tylenol) Insulin No 60 units) [place] betty regular 12-18 WASTE: F/P l 13:02: - Black; E [place] 00 - [employer] Trash Bin Stable for 28 days at room temperatur e Expires in days from ____Date Dextrose No 25 gm, 50 [place] betty 50% Syringe 8-30 mL, Route: l 13:02: IVP, Drug Form: INJ, Dosing Weight 78.7, kg, PRN, PRN Blood Glucose Results, Start date: 12/19/15 8:02:00 CDT, Duration: 30 day, Stop date: 01/18/16 8:01:00 CDT Glucagon No 1 mg, Memoria 12-18 Route: IM, l 13:02: Drug form: [place] 00 PDR/INJ, PRN, Dosing Weight 78.7, kg, PRN Blood Glucose Results, Start date: 12/19/15 8:02:00 CDT, Duration: 30 day, Stop date: 01/18/16 8:01:00 CDT Ondansetron No Notes: [place] betty 12-18 (Same as: l 13:02: Zofran) MEDICATION WASTE Product Size: 4 mg Product Wasted: ___ mg Docusate No Notes: Memoria 30 (Same as: l 13:02: Colace) (Do Not Crush) Metformin No 500 mg, Memor ia 8-30 PO, BID, 0 l 12:56: Refill(s) Clindamycin No 900 mg, Mem oria 12-18 Route: l 11:10: IVPB, [place] 00 ONCE, Dosing Weight 78.7, kg, Priority: STAT, Start date: 12/19/15 6:10:00 CDT, Stop date: 12/19/15 6:10:00 CDT Acetaminoph No Notes: [place] betty en 325 MG / 12-18 (Same as: l Hydrocodone 06:19: [place] Keesha nn Bitartrate 00 325/5) Do 5 MG Oral not exceed Tablet 4gm/day of [[place] acetaminop 5/325] hen. Insulin No Notes: Memoria regular 12-12 (Same as: l 05:07: Humulin R [place] 00 and NovoLIN R) WASTE: F/P - Black; E - [employer] Trash Bin (Do not shake) Ativan No 2 mg, Memoria 12-12 Route: PO, l 04:14: Drug form: [place] 00 TAB, ONCE, Dosing Weight 93.182, kg, [...] times daily with breakfast and dinner. metFORMIN 2012- Yes 1000mg Take 1,[address] [facility] [address] (GLUCOP[facility] 2-[facility] by [facility] ) 1000 MG 22:30: mouth 2 Medic al tablet 26 (two) Center times daily with breakfast and dinner. Immunizations Ordered Immunization Filled Immunization Date Status Commen ts Source Name Name Pneumococcal 2022-04-19 Completed [facility] 20-valent Conjugate 00:00:00 Hospi amber Vaccine FLUCELVAX QUAD PF 2022-04-[address] [facility]00 Hospital Pneumococcal 2022-04-19 Completed [facility] 20-valent Conjugate 00:00:00 Hospi amber Vaccine FLUCELVAX QUAD PF 2022-04-[address] 00:00:00 Hospital Pneumococcal 2022-04-19 Completed [facility] 20-valent Conjugate 00:00:00 Hospi amber Vaccine FLUCELVAX QUAD PF 2022-04-[address] 00:00:00 [facility] Pneumococcal 2022-04-19 Completed [facility] 20-valent Conjugate 00:00:00 Hospi amber Vaccine FLUCELVAX QUAD PF 2022-04-[address] 00:00:00 [facility] pneumococcal 2016-01-04 Completed [facility] 23-valent vaccine 01:30:00 influenza virus 2016-01-[address] [facility] inactivated 01:26:00 Vital Signs Vital Name Observation Time Observation Value Comments Source Systolic blood 2022-09-13 113 mm[Hg] [facility] pressure 03:30:00 [facility] Diastolic blood 2022-09-13 59 mm[Hg] [place] o f pressure 03:30:00 [facility] Heart rate 2022-09-13 62 /min [facility] 03:30:00 [facility] Respiratory rate 2022-09-13 17 /min [facility] 03:30:00 [facility] Oxygen saturation 2022-09-13 96 /min [facility] Arterial blood 03:30:00 [facility] by Pulse oximetry [place] Body temperature 2022-09-13 37.11 Jaqueline [place] of 02:29:00 [facility] Body height 2022-09-13 121.9 cm University 02:29:00 [facility] Body weight 2022-09-13 87.544 kg of :29: [facility] BMI 2022-09-13 58.89 kg/m2 University of 02:29:00 [facility] Systolic blood 2022-09-12 100 mm[Hg] [facility] of pressure 18:47:00 [facility] Diastolic blood 2022-09-12 67 mm[Hg] University o f pressure 18:47:00 [facility] Heart rate 2022-09-12 58 /min [facility] of 18:47:00 [facility] Body temperature 2022-09-12 36.17 Jaqueline [facility] 18:47:00 [facility] Body weight 2022-09-12 87.544 kg University of 18:47:00 [facility] BMI 2022-09-12 58.89 kg/m2 University of 18:47:00 [facility] Oxygen saturation 2022-09-12 97 /min [facility] in Arterial blood 18:47:00 [facility] by Pulse oximetry Branch Systolic blood 2022-08-14 122 mm[Hg] [facility] pressure 07:31:00 [facility] Diastolic blood 2022-08-14 55 mm[Hg] University o f pressure 07:31:00 [facility] Heart rate 2022-08-14 55 /min [facility] of 07:31:00 [facility] Respiratory rate 2022-08-14 15 /min [facility] of 07:31:00 [facility] Oxygen saturation 2022-08-14 94 /min [facility] in Arterial blood 07:31:00 [facility] by Pulse oximetry [place] Body temperature 2022-08-14 37 Jaqueline [facility] of 05:10:00 [facility] Body height 2022-08-14 121.9 cm "without my University of 05:10:00 legs" [facility] Body weight 2022-08-14 81.647 kg University of 05:10:00 [facility] BMI 2022-08-14 54.93 kg/m2 University of 05:10:00 [facility] Systolic blood 2022-08-05 175 mm[Hg] [facility] of pressure 18:25:00 [facility] Diastolic blood 2022-08-05 71 mm[Hg] University o f pressure 18:25:00 [facility] Heart rate 2022-08-05 60 /min [facility] of 18:24:00 [facility] Body temperature 2022-08-05 36.67 Jaqueline [facility] of 18:24:00 [facility] Respiratory rate 2022-08-05 18 /min [facility] of 18:24:00 [facility] Body height 2022-08-05 121.9 cm University of 18:24:00 [facility] Oxygen saturation 2022-08-05 100 /min [facility] of in Arterial blood 18:24:00 [facility] dilshad by Pulse oximetry Branch Systolic blood 2022-07-31 130 mm[Hg] [facility] of pressure 21:05:00 [facility] Diastolic blood 2022-07-31 47 mm[Hg] University o f pressure 21:05:00 [facility] Heart rate 2022-07-31 61 /min University of 21:05:00 [facility] Body temperature 2022-07-31 36.83 Jaqueline [facility] of 21:05:00 [facility] Respiratory rate 2022-07-31 16 /min University of 21:05:00 [facility] Oxygen saturation 2022-07-31 99 /min [facility] of in Arterial blood 21:05:00 [facility] by Pulse oximetry Branch Body height 2022-07-29 121.9 cm [facility] University of 15:00:00 [facility] Body weight 2022-07-28 92 kg University of 07:00:00 [facility] BMI 2022-07-28 61.89 kg/m2 University of 07:00:00 [facility] Systolic blood 2022-07-19 116 mm[Hg] [facility] of pressure 06:20:00 [facility] Diastolic blood 2022-07-19 82 mm[Hg] University o f pressure 06:20:00 [facility] Heart rate 2022-07-19 54 /min [facility] of 06:20:00 [facility] Body temperature 2022-07-19 36.5 Jaqueline [facility] of 06:20:00 [facility] Respiratory rate 2022-07-19 16 /min University of 06:20:00 [facility] Oxygen saturation 2022-07-19 95 /min [facility] of in Arterial blood 06:20:00 [facility] dilshad by Pulse oximetry Branch Body height 2022-07-19 121.9 cm University of 02:38:00 [facility] Body weight 2022-07-19 79.379 kg University of 02:38:00 [facility] BMI 2022-07-19 53.40 kg/m2 University of 02:38:00 [facility] Temperature 2021-06-29 97 [degF] Method: Oral 2.16.840.1.1138 8 13:17:12 3.4.2 Pulse 2021-06-29 77 /min Pattern: [id number] 8 13:17:12 Regular 3.4.2 Respiration Rate 2021-06-29 18 /min Pattern: 2.16.840.1. 33195 13:17:12 Unlabored 3.4.2 BP Systolic 2021-06-29 139 mm[Hg] Patient [id number] 8 13:17:12 Position: 3.4.2 Sitting; Cuff Location: Left Arm; Cuff Size: Standard BP Diastolic 2021-06-29 82 mm[Hg] Patient [id number] 8 13:17:12 Position: 3.4.2 Sitting; Cuff Location: Left Arm; Cuff Size: Standard Systolic blood 2022-07-03 122 mm[Hg] [facility] pressure 17:14:00 Hospital Diastolic blood 2022-07-03 57 mm[Hg] [facility] pressure 17:14:00 Hospital Heart rate 2022-07-03 64 /min [facility] 17:14:00 Hospital Body temperature 2022-07-03 37 Jaqueline [facility] 16:20:31 Hospital Respiratory rate 2022-07-03 21 /min [facility] 16:20:31 Hospital Oxygen saturation 2022-07-03 98 /min [facility] in Arterial blood 16:20:31 Hospital by Pulse oximetry Body height 2022-06-29 170.2 cm [facility] 02:00:00 Hospital Body weight 2022-06-28 81.149 kg [facility] 12:00:00 Hospital BMI 2022-06-28 28.02 kg/m2 [facility] 12:00:00 Hospital Systolic blood 2021-12-14 140 mm[Hg] [facility] pressure 16:16:14 Hospital Diastolic blood 2021-12-14 72 mm[Hg] [facility] pressure 16:16:14 Hospital Heart rate 2021-12-14 74 /min [facility] 16:16:14 Hospital Body temperature 2021-12-14 36.22 Jaqueline [facility] 16:16:14 Hospital Respiratory rate 2021-12-14 20 /min [facility] 16:16:14 Hospital Oxygen saturation 2021-12-14 100 /min [facility] in Arterial blood 16:16:14 Hospital by Pulse oximetry Body height 2021-12-11 170.2 cm [facility] 22:35:00 Hospital Body weight 2021-12-11 88.451 kg [facility] 22:35:00 Hospital BMI 2021-12-11 30.54 kg/m2 [facility] 22:35:00 [facility] Systolic blood 2021-02-02 153 mm[Hg] [facility] pressure 16:00:00 Diastolic blood 2021-02-02 79 mm[Hg] [facility] h pressure 16:00:00 Heart rate 2021-02-02 84 /min [facility] 16:00:00 Body temperature 2021-02-02 36.67 Jaqueline [facility] 16:00:00 Respiratory rate 2021-02-02 18 /min [facility] th 16:00:00 Oxygen saturation 2021-02-02 97 /min [facility] in Arterial blood 16:00:00 by Pulse oximetry Body height 2021-02-02 177.8 cm [facility] 14:44:00 Body weight 2021-02-02 81.647 kg [facility] 14:44:00 BMI 2021-02-02 25.83 kg/m2 [facility] 14:44:00 Temperature Oral 2016-02-16 98 F [facility] Alma rmann (F) 02:05:00 Respitory Rate 2016-02-16 [facility] 02:05:00 Heart Rate 2016-02-16 [facility] Larry n 02:05:00 Systolic (mm Hg) 2016-02-16 [facility] 02:05:00 Diastolic (mm Hg) 2016-02-16 [facility] ermann 02:05:00 Temperature Oral 2016-02-15 98.5 F [facility] Alma rmann (F) 20:23:00 Height 2016-02-15 170.18 cm [...] n 03:33:00 Temperature Oral 2015-12-19 98.8 [facility] ([facility] 03:33:00 Respitory Rate 2015-12-19 [facility] [...] n 10:42:00 Systolic (mm Hg) 2015-12-13 [facility]y rmann 08:15:00 Diastolic (mm Hg) 2015-12-13 [facility] L[facility] ermann 08:15:00 Respitory Rate 2015-12-13 Ronni Bach richie 08:15:00 Heart Rate 2015-12-13 Ronni Juarez n 08:15:00 BMI Calculated 2015-12-13 [facility]ie 03:44:00 Weight 2015-12-13 Rnoni Juarez n 03:44:00 Height 2015-12-13 170.18 cm Ronni Juarez n 03:44:00 Systolic (mm Hg) 2015-12-13 [facility] 03:44:00 Diastolic (mm Hg) 2015-12-13 [facility] 03:44:00 Respitory Rate 2015-12-13 Ronni Bach richie 03:44:00 Heart Rate 2015-12-13 Ronni Juarez n 03:44:00 Temperature Oral 2015-12-13 98.8 F [facility] Codey rmann (F) 03:44:00 Procedures Procedure Date / Time Performing Clinician Source Performed EKG-12 LEAD 2022-09-13 03:45:38 Hui Paez [facility] BASIC METABOLIC PANEL 2022-09-13 02:46:00 Hui Paez [facility] (NA, K, CL, CO2, GLUCOSE, Medica l Branch BUN, CREATININE, CA) CONSENT/REFUSAL FOR 2022-09-13 02:24:56 Doctor Unassigned, No Un [facility] DIAGNOSIS AND TREATMENT Name Medical Branch XR LUMBAR SPINE 5 VW 2022-09-12 20:57:55 Dinh Alexandra [facility] XR HIPS 3 VW LEFT 2022-09-12 20:57:55 Dinh Alexandra [facility] [place] PROSTATIC SPECIFIC 2022-09-12 19:52:[address] [facility] ANTIGEN [facility] FREE T4 2022-09-12 19:52:00 Dinh Alexandra [place] [facility] THYROID STIMULATING 2022-09-12 19:52:00 Alexandra Finnegan [facility] HORMONE Medical Branch COMP. METABOLIC PANEL 2022-09-12 19:52:00 Alexandra Finnegan [facility] ([id number]) Medical Branch LIPID PANEL ([id number])(TOTAL 2022-09-12 19:52:00 Alexandra Finnegan Un [facility] CHOLESTEROL, [facility] TRIGLYCERIDES, HDL) CBC WITH DIFF 2022-09-12 19:52:00 Dinh Alexandra [facility] GLYCOSYLATED HEMOGLOBIN 2022-09-12 19:52:00 Alexandra Finnegan [facility] (A1C) [facility] URINALYSIS 2022-09-12 19:52:00 [facility]SUPPLY JUSTIFICATION 2022-09-04 05:01:00 Doctor Unassigned, No [facility] POCT GLUCOSE (AUTOMATED) 2022-08-14 07:28:00 Les Ellsworth [facility] URINE DRUG (IMMUNOASSAY) 2022-08-14 06:10:00 Les Ellsworth [facility] - COMPREHENSIVE DRUG Medical [facility] nc SCREEN URINALYSIS 2022-08-14 06:10:00 Les Ellsworth [facility] BASIC METABOLIC PANEL 2022-08-14 05:43:00 Les Ellsworth [facility] (NA, K, CL, CO2, GLUCOSE, Medica l Branch BUN, CREATININE, CA) CBC WITH DIFF 2022-08-14 05:43:00 Les Ellsworth [facility] LACTIC ACID WHOLE BLOOD 2022-08-14 05:43:[address] [facility] CONSENT/REFUSAL FOR 2022-08-14 05:01:57 Doctor Unassigned, No [facility] DIAGNOSIS AND TREATMENT [facility] DNR 2022-08-07 05:01:00 Doctor Unassigned, No Univer sity [facility] HOME HEALTH 485 2022-08-02 05:01:00 Doctor Unassigned, No [facility] PO[facility] GLUCOSE (AUTOMATED) 2022-07-31 22:26:00 Malik Mayo [facility] POCT GLUCOSE (AUTOMATED) 2022-07-31 17:13:00 Malik Mayo [facility] POCT GLUCOSE (AUTOMATED) 2022-07-31 01:46:00 Malik Mayo [facility] POCT GLUCOSE (AUTOMATED) 2022-07-30 23:16:00 Rylee Malik [facility] POCT GLUCOSE (AUTOMATED) 2022-07-30 18:42:[address] [facility] [place] [place] POCT GLUCOSE (AUTOMATED) 2022-07-30 14:18:00 Rylee Malik [facility] MAGNESIUM 2022-07-30 10:58:00 Kelsey [facility] BASIC METABOLIC PANEL 2022-07-30 10:58:[address] [facility] (NA, K, CL, CO2, GLUCOSE, Medica l Branch BUN, CREATININE, CA) CBC WITH DIFF 2022-07-30 10:58:00 Kelsey [facility] POCT GLUCOSE (AUTOMATED) 2022-07-30 01:36:[address] [facility] [place] POCT GLUCOSE (AUTOMATED) 2022-07-29 22:43:[address] [facility] [place] POCT GLUCOSE (AUTOMATED) 2022-07-29 18:35:[address] [facility] [place] IRON PANEL 2022-07-29 17:06:00 Kelsey [facility] CT ANGIOGRAM LOWER 2022-07-29 16:36:24 Yordy Thornton [facility] EXTREMITY LEFT W CONTRAST Medica l Branch ACTIVATED PARTIAL 2022-07-29 13:53:00 Yordy Thornton [facility] THRMPLAS BRODY [facility] POCT GLUCOSE (AUTOMATED) 2022-07-29 13:45:[address] [facility] [place] [place] MAGNESIUM 2022-07-29 10:36:00 Eloy Smalls [place] [facility] FERRITIN SERUM 2022-07-29 10:36:00 Kelsey [facility] HEPATIC FUNCTION PANEL 2022-07-29 10:36:00 Eloy Smalls [facility] ([id number]) (ALB,T.PRO,BILI Medical Branch T,BU/BC,ALT,AST,ALK PHOS) BASIC METABOLIC PANEL 2022-07-29 10:36:00 Eloy Smalls [facility] (NA, K, CL, CO2, GLUCOSE, Medica l Branch BUN, CREATININE, CA) CBC WITH DIFF 2022-07-29 10:36:00 Eloy Smalls [facility] ACTIVATED PARTIAL 2022-07-29 07:13:00 Yordy Thornton [facility] URINALYSIS 2022-07-29 01:44:00 Darius, [facility] CREATININE, URINE RANDOM 2022-07-29 01:44:00 Darius [facility] UREA NITROGEN, URINE 2022-07-29 01:44:00 Darius [facility] SODIUM, URINE RANDOM 2022-07-29 01:44:00 [facility] POCT GLUCOSE (AUTOMATED) 2022-07-29 01:17:00 Malik Mayo [facility] POCT GLUCOSE (AUTOMATED) 2022-07-28 21:09:00 Brennan Love [facility] BASIC METABOLIC PANEL 2022-07-28 19:01:[address] [facility] (NA, K, CL, CO2, GLUCOSE, Medica l Branch BUN, CREATININE, CA) ACTIVATED PARTIAL 2022-07-28 19:01:00 Yordy Thornton [facility] POCT GLUCOSE (AUTOMATED) 2022-07-28 17:12:00 Brennan Love [facility] BASIC METABOLIC PANEL 2022-07-28 14:28:[address] [facility] (NA, K, CL, CO2, GLUCOSE, Medica l Branch BUN, CREATININE, CA) ACTIVATED PARTIAL 2022-07-28 14:28:00 Yordy Thornton [facility] POCT GLUCOSE (AUTOMATED) 2022-07-28 12:52:00 Brennan Love [facility] HB ECG ROUTINE & RHYTHM 2022-07-28 10:09:24 Scooter Barroso [facility] CREATINE KINASE 2022-07-28 08:02:00 Yordy Thornton [facility] C-REACTIVE PROTEIN 2022-07-28 08:02:00 Yordy Thornton [facility] COMP. METABOLIC PANEL 2022-07-28 08:02:00 Yordy Thornton [facility] ([id number]) [facility] VANCOMYCIN RANDOM LEVEL 2022-07-28 08:02:00 Yordy Thornton [facility] SEDIMENTATION RATE 2022-07-28 08:02:00 Yordy Thornton [facility] CBC WITH DIFF 2022-07-28 08:02:00 Yordy Thornton [facility] GLYCOSYLATED HEMOGLOBIN 2022-07-28 08:02:00 Yordy Thornton [facility] (A1C) [facility] PROTHROMBIN TIME / INR 2022-07-28 08:02:00 Yordy Thornton [facility] ACTIVATED PARTIAL 2022-07-28 08:02:00 Yordy Thornton [facility] MRSA / MSSA SCREEN BY 2022-07-28 08:02:00 Yordy Thornton [facility] (AUTOMATED) 2022-07-28 08:01:00 Brennan Love [facility] COMP. METABOLIC PANEL 2022-07-19 02:58:00 Adolfo Hurley [facility] ([id number]) [facility] CBC WITH DIFF 2022-07-19 02:58:00 Adolfo Hurley [facility] NOTICE OF PRIVACY 2022-07-19 02:27:02 Doctor Unassigned, No Univ [facility] PRACTICES Name [facility] CONSENT/REFUSAL FOR 2022-07-19 02:25:51 Doctor Unassigned, No [facility] [address] [facility] Name [facility] POC GLUCOSE 2022-07-03 16:21:00 Naif Cartagena Ho spital POC GLUCOSE 2022-07-03 12:18:00 Naif Cartagena Ho spital POC GLUCOSE 2022-07-03 01:29:00 Mitzi Zaraenzo Faulkner [facility] spital POC GLUCOSE 2022-07-02 21:46:00 Mitzi Zaraenzo [facility] POC GLUCOSE 2022-07-02 16:16:00 Mitzi Zaraenzo [facility] spital POC GLUCOSE 2022-07-02 12:16:00 Mitzi Zaraenzo [facility] spital BASIC METABOLIC PANEL 2022-07-02 10:11:00 [facility] 2022-07-02 10:11:00 Dayna Lutz spital POC GLUCOSE 2022-07-02 01:23:00 Francesca Stevens spital POC GLUCOSE 2022-07-01 21:46:00 Francesca Stevens spital XR CHEST 1 VW PORTABLE 2022-07-01 20:15:43 Hilda [facility] PICC INSERTION REQUEST 2022-07-01 20:09:45 Autumn Martinez [facility] POC GLUCOSE 2022-07-01 16:17:00 Francesca Stevens spital CARBAPENEMASE GENES 2022-07-01 16:[facility] 2022-07-01 12:23:00 Francesca Stevens spital VANCOMYCIN LEVEL, RANDOM 2022-07-01 11:14:00 Wilberto Joe [facility] POC GLUCOSE 2022-07-01 01:24:00 Francesca Stevens spital POC GLUCOSE 2022-06-30 22:08:00 Francesca Stevens spital POC GLUCOSE 2022-06-30 16:12:00 Francesca Stevens spital CARBAPENEMASE GENES 2022-06-30 15:00:00 Hilda [facility] POC GLUCOSE 2022-06-30 12:23:00 Francesca Stevens spital BASIC METABOLIC PANEL 2022-06-30 11:31:00 [facility] CBC WITH PLATELET AND 2022-06-30 11:31:00 [facility]baldo [facility] DIFFERENTIAL ESTIMATED GFR 2022-06-30 11:31:00 Younis, Francesca Bahai Ho spital POC GLUCOSE 2022-06-30 01:47:00 Younis, Francesca Bahai Ho spital POC GLUCOSE 2022-06-29 22:47:00 Younis, Francesca Bahai Ho spital POC GLUCOSE 2022-06-29 17:19:00 Younis, Francesca Bahai Ho spital POC GLUCOSE 2022-06-29 13:13:00 Younis, Francesca Bahai Ho spital POC GLUCOSE 2022-06-29 02:41:00 Younis, Francesca Bahai Ho spital POC GLUCOSE 2022-06-28 22:40:00 Younis, Farncesca Bahai Ho spital POC GLUCOSE 2022-06-28 17:47:00 Younis, Francesca Bahai Ho spital POC GLUCOSE 2022-06-28 13:30:00 Younis, Francesca Bahai Ho spital BASIC METABOLIC PANEL 2022-06-28 12:11:00 [facility] EST[facility] GFR 2022-06-28 12:11:00 Younis, Francesca Bahai Ho spital POC GLUCOSE 2022-06-28 02:28:00 Younis, Francesca Bahai Ho spital POC GLUCOSE 2022-06-27 22:12:00 Younis, Francesca Bahai Ho spital POC GLUCOSE 2022-06-27 17:26:00 Younis, Francesca Bahai Ho spital POC GLUCOSE 2022-06-27 13:29:00 Younis, Francesca Bahai Ho spital POC GLUCOSE 2022-06-27 02:09:00 Younis, Francesca Bahai Ho spital POC GLUCOSE 2022-06-26 23:37:00 YounisFrancesca Ho spital FUNGUS CULTURE 2022-06-26 23:17:00 Davin Walker Ho spital AFB CULTURE 2022-06-26 23:17:00 Davin Walker Ho spital GRAM STAIN 2022-06-26 23:17:00 Davin Walker spital [employer] STAIN 2022-06-26 23:17:00 Davin Walker Ho spital [employer] CULTURE 2022-06-26 23:09:00 Davin Walker Ho spital FUNGUS SMEAR 2022-06-26 23:09:00 Cassidymaryjane Jin Bahai Ho spital [employer] STAIN 2022-06-26 23:09:00 Aaron Jin Bahai Ho spital FUNGUS CULTURE 2022-06-26 23:09:00 Aaron Jin Bahai Ho spital VT AN ELECTIVE 2022-06-26 22:52:00 Jonathan Danielle [facility] SUPRAGLOTTIC AIRWAY DEBRIDEMENT, LOWER 2022-06-26 22:30:00 [facility] EXTREMITY ANAEROBIC CULTURE 2022-06-26 22:17:00 [facility] AEROBIC CULTURE 2022-06-26 22:17:00 [facility] spital TISSUE CULTURE 2022-06-26 22:09:00 [facility] spital ANAEROBIC CULTURE 2022-06-26 22:09:00 [facility] POC GLUCOSE 2022-06-26 21:46:00 Francesca Stevens spital POC GLUCOSE 2022-06-26 18:45:00 Francesca Stevens [facility] spital VANCOMYCIN LEVEL, RANDOM 2022-06-26 15:33:00 [facility] POC GLUCOSE 2022-06-26 14:15:00 Francesca Stevens [facility] spital CBC WITH PLATELET AND 2022-06-26 11:43:[address] [facility] DIFFERENTIAL BASIC METABOLIC PANEL 2022-06-26 11:43:[address] [facility] MAGNESIUM LEVEL 2022-06-26 11:43:00 Brian Powell [facility] PROTHROMBIN TIME WITH INR 2022-06-26 11:43:[address] [facility] ESTIMATED GFR 2022-06-26 11:43:00 [facility] POC GLUCOSE 2022-06-26 02:46:00 [facility] LACTIC ACID LEVEL, SEPSIS 2022-06-26 02:02:00 [facility] - NOW AND REPEAT 2X EVERY 3 HOURS POC GLUCOSE 2022-06-25 22:12:00 Francesca Stevens Ho spital LACTIC ACID LEVEL, SEPSIS 2022-06-25 22:06:00 [facility] - NOW AND REPEAT 2X EVERY 3 HOURS ECG 12-LEAD 2022-06-25 19:43:10 [facility] INFLUENZA ANTIGEN TEST, 2022-06-25 19:18:00 [facility] clinic[facility] Tish [facility] REFLEX NEGATIVE TO RPP RESPIRATORY PATHOGEN 2022-06-25 19:18:00 [facility] PANEL WITH COVID-19 RT-PCR METHICILLIN-RESISTANT 2022-06-25 19:15:00 [facility] clinicm[facility] STAPHYLOCOCCUS AUREUS (MRSA), LEILANI LACTIC ACID LEVEL, SEPSIS 2022-06-25 19:01:00 [facility] - NOW AND REPEAT 2X EVERY 3 HOURS XR CHEST 1 VW PORTABLE 2022-06-25 18:53:03 [facility] XR FEMUR 2 VW LEFT 2022-06-25 18:52:28 [facility] BLOOD CULTURE, AEROBIC & 2022-06-25 18:05:00 [facility] ANAEROBIC BLOOD CULTURE, AEROBIC & 2022-06-25 18:00:00 [facility] ANAEROBIC CBC WITH PLATELET AND 2022-06-25 17:56:00 [facility] Services[facility] DIFFERENTIAL COMPREHENSIVE METABOLIC 2022-06-25 17:56:00 [facility] PANEL PROTHROMBIN TIME WITH INR 2022-06-25 17:56:00 [facility] ESTIMATED GFR 2022-06-25 17:56:00 [facility] ServicesCl[facility] clinicm[facility] MAGNESIUM LEVEL 2022-06-25 17:56:00 [facility] clinicm[facility] POC GLUCOSE 2022-06-25 17:06:00 Francesca Stevens Ho spital POC GLUCOSE 2022-05-14 17:15:00 Harinder [facility] VENIPUNC NEED PHYS 2022-05-14 16:30:00 Zechariah Washington [facility] SKILL,DX OR RX POC GLUCOSE 2022-05-14 13:17:00 Harinder, [facility] CBC WITH PLATELET AND 2022-05-14 11:43:00 Harinder [facility] DIFFERENTIAL BASIC METABOLIC PANEL 2022-05-14 11:43:00 Harinder [facility] ESTIMATED GFR 2022-05-14 11:43:00 Harinder, [facility] POC GLUCOSE 2022-05-14 02:36:00 Harinder, [facility] POC GLUCOSE 2022-05-13 22:14:00 Harinder, [facility] POC GLUCOSE 2022-05-13 17:21:00 Harinder, [facility] POC GLUCOSE 2022-05-13 13:25:00 Harinder [facility] CBC WITH PLATELET AND 2022-05-13 11:23:00 Harinder [facility] DIFFERENTIAL BASIC METABOLIC PANEL 2022-05-13 11:23:00 Harinder [facility] ESTIMATED GFR 2022-05-13 11:23:00 Harinder, [facility] POC GLUCOSE 2022-05-13 02:26:00 Harinder, [facility] POC GLUCOSE 2022 22:54:00 Harinder, [facility] POC GLUCOSE 2022 17:23:00 Harinder, [facility] POC GLUCOSE 2022 13:33:00 Harinder, [facility] CBC WITH PLATELET AND 2022 10:15:00 Harinder, [facility] DIFFERENTIAL BASIC METABOLIC PANEL 2022 10:15:00 Harinder, [facility] ESTIMATED GFR 2022 10:15:00 Harinder, [facility] POC GLUCOSE 2022 03:36:00 Harinder, [facility] POC GLUCOSE 2022-05-11 22:17:00 Harinder [facility] BLOOD CULTURE, AEROBIC & 2022-05-11 21:45:00 [facility] ANAEROBIC BLOOD CULTURE, AEROBIC & 2022-05-11 21:28:00 Nancy [facility] ANAEROBIC POC GLUCOSE 2022-05-11 17:11:00 [facility] 2022-05-11 13:14:00 [facility] CBC WITH PLATELET AND 2022-05-11 10:35:00 Barrett [facility] DIFFERENTIAL BASIC METABOLIC PANEL 2022-05-11 10:35:00 Harinder [facility] ESTIMATED GFR 2022-05-11 10:35:00 [facility] GLU[facility]SE 2022-05-11 02:33:00 [facility] POC GLU[facility]SE 2022-05-10 22:49:00 [facility] BLOOD CULTURE, AEROBIC & 2022-05-10 22:13:00 [facility] ANAEROBIC HC NERVE BLOCK INJ 2022-05-10 19:31:21 [facility] SINGLE W IMG GUID HC ANESTH SCIATIC NERVE 2022-05-10 19:23:41 [facility]SE 2022-05-10 18:34:00 [facility] SURGICAL PATHOLOGY 2022-05-10 18:13:00 [facility] VT AN ELECTIVE 2022-05-10 17:24:00 Mari Gamboa [facility] SUPRAGLOTTIC AIRWAY AMPUTATION, BELOW KNEE 2022-05-10 16:57:00 Davin Walker [facility] POC GLUCOSE 2022-05-10 15:58:00 [facility] TTE COMPLETE, WO 2022-05-10 14:38:42 Mi Cruz Juany [facility] CONTRAST, W DOPPLER ([id number]) POC GLUCOSE 2022-05-10 13:14:00 [facility] CBC WITH PLATELET AND 2022-05-10 12:19:00 Harinder, Ron [facility] DIFFERENTIAL BASIC METABOLIC PANEL 2022-05-10 12:19:00 Ron Pizano [facility] PARTIAL THROMBOPLASTIN 2022-05-10 12:19:00 Louisa Escobar [facility] TIME (PTT) PROTHROMBIN TIME WITH INR 2022-05-10 12:19:00 ShawnLouisa perez [facility] ESTIMATED GFR 2022-05-10 12:19:00 [facility] POC GLUCOSE 2022-05-10 03:02:00 [facility] 2022-05-09 22:30:00 [facility] POC GLUCOSE 2022-05-09 18:05:00 [facility] US ANKLE BRACHIAL INDEX 2022-05-09 17:33:01 Gail [facility] VANCOMYCIN LEVEL, RANDOM 2022-05-09 16:42:[address] [facility] Scooter POC GLUCOSE 2022-05-09 13:14:00 [facility] CBC WITH PLATELET AND 2022-05-09 11:25:00 Jenna [facility] DIFFERENTIAL [facility] MAGNESIUM LEVEL 2022-05-09 11:25:00 Gail [facility] ospital [place] COMPREHENSIVE METABOLIC 2022-05-09 11:25:00 Gail West [facility] PANEL [place] ESTIMATED GFR 2022-05-09 11:25:00 Gail [facility] ospital [place] MANUAL DIFFERENTIAL 2022-05-09 11:25:00 [facility] 2022-05-09 02:55:00 Noman Brewer MRI FOOT WO CONTRAST LEFT 2022-05-09 02:37:17 Gail [facility] POC GLUCOSE 2022-05-08 22:46:00 Noman Berwer COVID-19 QUALITATIVE 2022-05-08 22:35:00 [facility] Sc[facility] XR FOOT 3+ VW LEFT 2022-05-08 19:44:29 Chika Formerly [facility] Scooter BLOOD CULTURE, AEROBIC & 2022-05-08 19:34:[address] [facility] ANAEROBIC Scooter CBC WITH PLATELET AND 2022-05-08 19:34:00 Chika, [facility] DIFFERENTIAL Scooter COMPREHENSIVE METABOLIC 2022-05-08 19:34:00 Kenneth Farr [facility] PANEL Scooter C-REACTIVE PROTEIN 2022-05-08 19:34:00 Chika [facility] Scooter SEDIMENTATION RATE 2022-05-08 19:34[facility] ESTIMATED GFR 2022-05-08 19:34:00 [facility] MANUAL DIFFERENTIAL 2022-05-08 19:34:00 Chika, [facility] POC GLUCOSE 2022-05-08 18:06:00 Chika [facility] ospital [facility] POC GLUCOSE 2022-04-19 22:41:00 July García Bahai ospital CV TRANSESOPHAGEAL 2022-04-19 20:35:00 Sharon Mcmillan [facility] ECHOCARDIOGRAM W Angel CARDIOVERSION ECG 12-LEAD 2022-04-19 20:33:57 Jaspreet Cannon [facility] POC GLUCOSE 2022-04-19 17:28:00 July García Bahai H ospital POC GLUCOSE 2022-04-19 13:31:00 July García Bahai H ospital CBC HEMOGRAM 2022-04-19 12:19:00 July García Bahai H ospital BASIC METABOLIC PANEL 2022-04-19 12:19:[address] [facility] MAGNESIUM LEVEL 2022-04-19 12:19:00 July García Bahai H ospital ESTIMATED GFR 2022-04-19 12:19:00 July García Bahai ospital POC GLUCOSE 2022-04-19 10:28:00 Nadimpalli, July Bahai H ospital POC GLUCOSE 2022-04-19 06:29:00 Nadimpalli, July Bahai H ospital POC GLUCOSE 2022-04-19 02:51:00 Nadimpalli, July Bahai H ospital POC GLUCOSE 2022-04-18 22:27:00 Nadimpalli, July Bahai H ospital POC GLUCOSE 2022-04-18 17:02:00 Nadimpalli, July Bahai H ospital POC GLUCOSE 2022-04-18 13:25:00 Nadimpalli, July Bahai H ospital CBC HEMOGRAM 2022-04-18 12:36:00 Nadimpalli, July Bahai H ospital BASIC METABOLIC PANEL 2022-04-18 12:36:00 [facility] ESTIMATED GFR 2022-04-18 12:36:00 Nadimpalli, July Bahai H ospital POC GLUCOSE 2022-04-18 10:01:00 Nadimpalli, July Bahai H ospital POC GLUCOSE 2022-04-18 07:11:00 Nadimpalli, July Bahai H ospital URINE DRUGS OF ABUSE 2022-04-18 03:32:00 [facility] 2022-04-18 02:35:00 Nadimpalli, July Bahai H ospital POC GLUCOSE 2022-04-17 23:00:00 Nadimpalli, July Bahai H ospital NM MYOCARDIAL PERFUSION 2022-04-17 20:04:00 [facility] CV STRESS TEST NUCLEAR 2022-04-17 20:04:00 [facility] CARDIO POC GLUCOSE 2022-04-17 17:10:00 Nadimpalli, July Bahai H ospital POC GLUCOSE 2022-04-17 13:48:00 Nadimpalli, July Bahai H ospital BASIC METABOLIC PANEL 2022-04-17 11:17:00 [facility] CBC HEMOGRAM 2022-04-17 11:17:00 Nadimpalli, July Bahai H ospital MAGNESIUM LEVEL 2022-04-17 11:17:00 Nadimpalli, July Bahai H ospital ESTIMATED GFR 2022-04-17 11:17:00 Nadimpalli, July Bahai H ospital POC GLUCOSE 2022-04-17 10:13:00 Nadimpalli, July Bahai H ospital POC GLUCOSE 2022-04-17 06:09:00 Nadimpalli, July Bahai H ospital POC GLUCOSE 2022-04-17 02:46:00 Nadimpalli, July Bahai H ospital POC GLUCOSE 2022-04-16 23:09:00 Nadimpalli, [facility] POC GLUCOSE 2022-04-16 17:53:00 Nadimpalli, July [facility] POC GLUCOSE 2022-04-16 13:40:00 Nadimpalli, July [facility] POC GLUCOSE 2022-04-16 10:34:00 Nadimpalli, July [facility] CBC HEMOGRAM 2022-04-16 09:46:00 Silva [facility] BASIC METABOLIC PANEL 2022-04-16 09:46:00 Nadericalljulita, July [facility] PARTIAL THROMBOPLASTIN 2022-04-16 09:46:[address] [facility] TIME (PTT) ESTIMATED GFR 2022-04-16 09:46:00 Uriel [facility] POC GLUCOSE 2022-04-16 06:16:00 Nadericalli, July [facility] POC GLUCOSE 2022-04-16 02:38:00 Nadimpalli, July [facility] POC GLUCOSE 2022-04-15 23:20:00 Uriel [facility] PARTIAL THROMBOPLASTIN 2022-04-15 20:59:00 Silva [facility] TIME (PTT) POC GLUCOSE 2022-04-15 17:50:00 [facility] 2022-04-15 14:26:00 Ugoeke, [facility] TIME (PTT) POC GLUCOSE 2022-04-15 13:50:00 Uriel [facility] CBC HEMOGRAM 2022-04-15 09:50:00 elisabet [facility] HERPES SIMPLEX VIRUS BY 2022-04-15 09:50:00 Shaikh [facility] PCR HIV 1/2 ANTIGEN/ANTIBODY, 2022-04-15 09:50:[address] [facility] FOURTH GENERATION, WITH REFLEXES BASIC METABOLIC PANEL 2022-04-15 09:50:00 [facility] ESTIMATED GFR 2022-04-15 09:50:00 Uriel Past[facility] Ho [facility]ital POC GLUCOSE 2022-04-15 09:49:00 Uriel [facility]ital POC GLUCOSE 2022-04-15 06:33:00 Uriel [facility] POC GLUCOSE 2022-04-15 05:30:00 Uriel [facility] PARTIAL THROMBOPLASTIN 2022-04-15 05:29:00 Ugelisabet [facility] TIME (PTT) POC GLUCOSE 2022-04-15 02:07:00 Uriel Pastor spital POC GLUCOSE 2022-04-14 23:24:00 Uriel [facility]ital PARTIAL THROMBOPLASTIN 2022-04-14 22:35:00 [facility] 2022-04-14 17:22:00 Uriel Pastor spital URINALYSIS SCREEN AND 2022-04-14 17:00:00 [facility], WITH REFLEX TO CULTURE TTE COMPLETE, W CONTRAST, 2022-04-14 16:06:00 [facility] ([id number]) PARTIAL THROMBOPLASTIN 2022-04-14 15:38:00 [facility] ([facility] POC GLUCOSE 2022-04-14 13:37:00 Uriel Pastor spital CBC HEMOGRAM 2022-04-14 11:19:00 [facility] BASIC METABOLIC PANEL 2022-04-14 11:19:00 [facility] Efren MAGNESIUM LEVEL 2022-04-14 11:19:00 Fahad Costello ospiamber Schwartz ESTIMATED GFR 2022-04-14 11:19:00 Fahad Costello ospiamber Schwartz POC GLUCOSE 2022-04-14 10:26:00 Fahad Costello ospital Efren POC GLUCOSE 2022-04-14 07:01:00 Fahad Costello ospiamber Schwartz HEPATIC FUNCTION PANEL 2022-04-14 06:28:00 [facility] 2022-04-14 06:28[facility]00 [facility] 2022-04-14 06:28:00 [facility] Efren POC GLUCOSE 2022-04-14 01:54:00 Fahad Costello ospital Efren POC GLUCOSE 2022-04-14 00:05:00 Fahad Costello XR ABDOMEN 1 VW 2022-04-13 23:25:05 René Baird spital POC GLUCOSE 2022-04-13 22:54:00 Fahad Costello ECG 12-LEAD 2022-04-13 21:50:51 [facility] BETA HYDROXYBUTYRATE 2022-04-13 21:01:00 [facility] MAGNESI[facility] LEVEL 2022-04-13 21:01:00 René Baird spital ESTIMATED GFR 2022-04-13 21:01:00 René Baird spital TROPONIN T 2022-04-13 21:01:00 René Baird spital PHOSPHORUS LEVEL 2022-04-13 21:01:00 René Baird ospital BASIC METABOLIC PANEL 2022-04-13 21:01:00 René Baird [facility] POC GLUCOSE 2022-04-13 20:54:00 Fahad Costello [facility] osleopoldotal Efren ECG 12-LEAD 2022-04-13 20:37:02 [facility] TROPONIN T 2022-04-13 20:16:00 [facility] POC GLU[facility]SE 2022-04-13 19:03:00 Fahad Costello [facility] ospital Efren POC GLUCOSE 2022-04-13 14:07:00 [facility] TROPONIN T 2022-04-13 13:25:00 Ugoe, [facility] TROPONIN T 2022-04-13 12:11:00 [facility] PARTIAL THROMBOPLASTIN 2022-04-13 12:11:00 [facility] TIME (PTT) PROTHROMBIN TIME WITH INR 2022-04-13 12:11:00 [facility] ANTI XA, UNFRACTIONATED 2022-04-13 12:11:00 [facility] 12-LEAD 2022-04-13 11:43:39 [facility] POC GLUCOSE 2022-04-13 11:41:00 [facility] POC GLUCOSE 2022-04-13 07:07:00 [facility] COVID-19 QUALITATIVE 2022-04-13 05:26:00 [facility] RT-PCR [place] POC GLUCOSE 2022-04-13 05:13:00 [facility] POC GLUCOSE 2022-04-13 04:36:[address] [facility] [address] ANGIOGRAM PE CHEST 2022-04-13 01:07:30 [facility] [place] ECG 12-LEAD 2022-04-12 22:44:44 [facility] [place] XR CHEST 1 VW PORTABLE 2022-04-12 22:03:54 [facility] [place] ECG ED PRELIMINARY 2022-04-12 21:56:45 [facility] INTERPRETATION [place] CRITICAL CARE 2022-04-12 21:56:45 [facility] ILL/INJURED PATIENT INIT [place] 30-74 MIN CBC WITH PLATELET AND 2022-04-12 21:56:00 [facility] DIFFERENTIAL [place] COMPREHENSIVE METABOLIC 2022-04-12 21:56:00 [facility] PANEL [place] TROPONIN T 2022-04-12 21:56:00 [facility] [place] B NATRIURETIC PEPTIDE 2022-04-12 21:56:00 [facility] [place] ESTIMATED GFR 2022-04-12 21:56:00 [facility] [place] POC GLUCOSE 2022-03-14 21:43:00 Loquias, Elain [facility] POC GLUCOSE 2022-03-14 17:02:00 Loquias, Elain [facility] POC GLUCOSE 2022-03-14 13:46:00 Loquias, Elain [facility] POC GLUCOSE 2022-03-14 03:02:00 Loquias, Elain [facility] POC GLUCOSE 2022-03-13 23:33:00 Loquias, [facility]ain [facility] POC GLUCOSE 2022-03-13 18:05:00 Loquias, [facility]ain [facility] POC GLUCOSE 2022-03-13 13:57:00 Loquias, [facility]ain [facility] POC GLUCOSE 2022-03-13 02:06:00 Loquias, [facility]ain [facility] POC GLUCOSE 2022-03-12 22:33:00 Loquias, [facility]ain [facility] POC GLUCOSE 2022-03-12 21:31:00 Loquias, [facility]ain [facility] LOWER EXTREMITY 2022-03-12 20:07:00 Davin [facility] ANGIOGRAM,POSSIBLE ANGIOPLASTY,POSSIBLE STENT POC GLUCOSE 2022-03-12 15:51:00 Loquias, Elain [facility] CBC WITH PLATELET AND 2022-03-12 10:36:00 HarinderRon el [facility] DIFFERENTIAL BASIC METABOLIC PANEL 2022-03-12 10:36:00 Ron Pizano [facility] PROTHROMBIN TIME WITH INR 2022-03-12 10:36:00 [facility] ESTIMATED GFR 2022-03-12 10:36:00 Harinder [facility] POC GLUCOSE 2022-03-12 02:25:00 Harinder [facility] USPV RADHA EXTREMITY 2022-03-11 23:31:00 [facility] BILATERAL POC GLUCOSE 2022-03-11 23:16:00 [facility] 2022-03-11 17:42:00 Harinder, [facility] POC GLUCOSE 2022-03-11 13:36:00 Harinder, [facility] CBC WITH PLATELET AND 2022-03-11 12:48:00 Ron Pizano [facility] DIFFERENTIAL COMPREHENSIVE METABOLIC 2022-03-11 12:48:00 Ron Pizano [facility] PANEL ESTIMATED GFR 2022-03-11 12:48:00 [facility] 2022-03-11 02:16:00 [facility] METHICILLIN-RESISTANT 2022-03-11 00:23:00 Laurence Abreu [facility] STAPHYLOCOCCUS AUREUS [place] (MRSA), LEILANI POC GLUCOSE 2022-03-10 22:58:00 [facility] VANCOMYCIN LEVEL, RANDOM 2022-03-10 20:31:00 Bridgette Hernandez [facility] POC GLUCOSE 2022-03-10 17:46:00 [facility]SE 2022-03-10 13:57:00 Harinder [facility] CBC WITH PLATELET AND 2022-03-10 09:15:00 Barrett [facility] DIFFERENTIAL COMPREHENSIVE METABOLIC 2022-03-10 09:15:00 Harinder [facility] PANEL MAGNESIUM LEVEL 2022-03-10 09:15:00 [facility] ESTIMATED GFR 2022-03-10 09:15:00 Harinder [facility] POC GLUCOSE 2022-03-10 02:19:00 Harinder [facility] POC GLUCOSE 2022-03-09 22:28:00 Harinder [facility] METHICILLIN-RESISTANT 2022-03-09 18:20:00 Harinder [facility] STAPHYLOCOCCUS AUREUS (MRSA), LEILANI POC GLUCOSE 2022-03-09 17:16:00 Harinder [facility] POC GLUCOSE 2022-03-09 08:46:00 [facility] 2022-03-09 07:16:00 [facility] COVID-19 QUALITATIVE 2022-03-09 07:14:00 [facility] COMPREHENSIVE METABOLIC 2022-03-09 06:10:00 [facility] HEMOGLOBIN A1C 2022-03-09 06:10:00 Tonie-OgEdgar [facility] ospital [employer] LIPID PANEL 2022-03-09 06:10:00 Tonie-Og, Edgar [facility] ospital [employer] XR FOOT 3+ VW LEFT 2022-03-09 05:56:37 [facility] BETA HYDROXYBUTYRATE 2022-03-09 05:43:00 [facility] CBC WITH PLATELET AND 2022-03-09 05:35:00 [facility] DIFFERENTIAL LACTIC ACID LEVEL, SEPSIS 2022-03-09 05:35:00 [facility] - NOW AND REPEAT 2X EVERY 3 HOURS VENOUS BLOOD GAS 2022-03-09 05:35:00 [facility] ESTIMATED GFR 2022-03-09 05:35:00 [facility] POC GLUCOSE 2022-03-09 03:55:00 Provider, Yvonne [facility] POC GLUCOSE 2021-12-14 16:15:00 René De Jesus [facility] ospiamber Arredondo POC GLUCOSE 2021-12-14 12:10:00 René De Jesus POC GLUCOSE 2021-12-14 01:40:00 René De Jesus POC GLUCOSE 2021-12-13 21:17:00 René De Jesus POC GLUCOSE 2021-12-13 16:05:00 René De Jesus POC GLUCOSE 2021-12-13 12:22:00 René De Jesus POC GLUCOSE 2021-12-13 01:36:00 René De Jesus POC GLUCOSE 2021-12-12 22:00:00 René De Jesus nora Arredondo VENIPUNC NEED PHYS 2021-12-12 17:56:39 [facility] SKILL,DX OR RX POC GLUCOSE 2021-12-12 16:34:00 René De Jesus nora Arredondo POC GLUCOSE 2021-12-12 12:27:00 René De Jesus nora Arredondo BASIC METABOLIC PANEL 2021-12-12 10:55:00 [facility]ulfo CBC WITH PLATELET AND 2021-12-12 10:55:00 [facility] DIFFERENTIAL Arnulfo ESTIMATED GFR 2021-12-12 10:55:00 [facility]é [facility] HenaoZCONOÉ-19 ANTI-SPIKE IGG 2021-12-12 10:54:[address] [facility] ANTIBODY TITER Harjinder EarleneZJAROD-19 SEROLOGY 2021-12-12 10:54:00 [facility] PATIENT SURVEILLANCE Harjinder POC GLUCOSE 2021-12-12 03:38:00 René De Jesus POC GLUCOSE 2021-12-12 01:22:00 René De Jesus nora Arredondo POC GLUCOSE 2021-12-11 22:32:00 René De Jesus POC GLUCOSE 2021-12-11 17:04:00 René De Jesus POC GLUCOSE 2021-12-11 13:53:00 René De Jesus POC GLUCOSE 2021-12-11 08:48:00 [facility] POC GLUCOSE 2021-12-11 07:29:00 [facility] POC GLUCOSE 2021-12-11 06:36:00 [facility] COVID-19 QUALITATIVE 2021-12-11 05:55:00 Wilberto Carbajal [facility] RT-PCR POC GLUCOSE 2021-12-11 05:34:00 [facility] WITH PLATELET AND 2021-12-11 04:02:00 [facility] DIFFERENTIAL COMPREHENSIVE METABOLIC 2021-12-11 04:02:00 Wilberto Carbajal [facility] PANEL LIPASE LEVEL 2021-12-11 04:02:00 [facility] BETA HYDROXYBUTYRATE 2021-12-11 04:02:00 Wilberto Carbajal [facility] VENOUS BLOOD GAS 2021-12-11 04:02:00 Wilberto Carbajal [facility] ESTIMATED GFR 2021-12-11 04:02:00 Wilberto Carbajal [facility] CT ABDOMEN PELVIS WO 2021-12-11 02:47:59 Wilberto Carbajal [facility] CONTRAST URINE CULTURE 2021-12-11 02:24:00 [facility] URINALYSIS SCREEN AND 2021-12-11 01:10:00 [facility] MICROSCOPY, WITH REFLEX TO CULTURE URINE CULTURE 2021-11-08 17:34:00 Thong Cartagena spital URINALYSIS SCREEN AND 2021-11-08 16:54:00 [facility], WITH REFLEX TO CULTURE CT RENAL STONE PROTOCOL 2021-11-08 16:35:59 Thong Cartagena [facility] CBC WITH PLATELET AND 2021-11-08 16:05:[address] [facility] DIFFERENTIAL BASIC METABOLIC PANEL 2021-11-08 16:05:[address] [facility] LIPASE LEVEL 2021-11-08 16:05:00 Thong Cartagena spital HEPATIC FUNCTION PANEL 2021-11-08 16:05:00 Mitzi, Thong [facility] ESTIMATED GFR 2021-11-08 16:05:00 Thong Cartagena spital POC GLUCOSE 2021-11-08 15:52:00 Thong Cartagena spital ECG ED PRELIMINARY 2021-10-11 04:49:00 [facility] 12-LEAD 2021-10-11 03:14:36 [facility] WITH PLATELET AND 2021-10-11 02:57:00 [facility] DIFFERENTIAL COMPREHENSIVE METABOLIC 2021-10-11 02:57:00 [facility] PANEL TROPONIN T 2021-10-11 02:57:00 [facility] B NATRIURETIC PEPTIDE 2021-10-11 02:57:00 [facility] PROTHROMBIN TIME WITH INR 2021-10-11 02:57:00 Yannick [facility] PARTIAL THROMBOPLASTIN 2021-10-11 02:57:00 [facility] TIME (PTT) ESTIMATED GFR 2021-10-11 02:57:00 [facility] XR CHEST 2 VW 2021-10-11 02:05:13 [facility] DIABETIC FOOT EXAMINATION 2021-06-29 00:00:00 Virgilio Garcia [id number]. (2028F) 2 MOST RECENT DIASTOLIC 2021-06-29 00:00:00 Virgilio Garcia 2.16.8 [id number]. BLOOD PRESSURE 80-89 MM 2 HG (HTN, CKD, CAD) (DM) (3079F) MOST RECENT SYSTOLIC 2021-06-29 00:00:00 Virgilio Garcia 2.16.84 [id number]. BLOOD PRESSURE 130-139 MM 2 HG (DM),(HTN, CKD, CAD) (3075F) NEGATIVE SCREEN FOR 2021-06-29 00:00:00 Virgilio Garcia [id number]. CLINICAL DEPRESSION, 2 FOLLOW-UP NOT REQUIRED (G8510) PATIENT IDENTIFIED A 2021-06-29 00:00:00 Jose, Branch [id number]. TOBACCO USER RECEIVED 2 TOBACCO CESSATION INTERVENTION (COUNSELING AND/OR PHARMACOTHERAPY) (G9906) SCREENING FOR TOBACCO USE 2021-06-29 00:00:00 Jose, Branch [id number]. (4004F) 2 PATIENT SCREENED FOR 2021-06-29 00:00:00 Jose, Branch 2.16.84 [id number]. TOBACCO USE AND 2 IDENTIFIED A TOBACCO USER (G9902) XRAY FOOT 3 VIEWS - 2021-02-02 15:18:00 Jamin Lopez [facility] ROUTINE CBC/DIFF 2021-02-02 15:12:00 Jamin Lopez alth BASIC METABOLIC PANEL 2021-02-02 15:12:00 Jamin Lopez [facility] CBC 2021-02-02 15:12:00 Jamin Lopez alth URINE CULTURE 2021-01-03 04:26:00 [facility] URINALYSIS SCREEN AND 2021-01-03 04:26:00 [facility] MICROSCOPY, WITH KANCHAN Ramos TO CULTURE LACTIC ACID LEVEL, SEPSIS 2021-01-03 03:04:00 [facility] - NOW AND REPEAT 2X EVERY Richard 3 HOURS TROPONIN 2021-01-03 03:04:00 [facility] US DUPLEX VENOUS LOWER 2021-01-03 01:53:13 [facility] EXTREMITY RIGHT Mccaskill ECG ED PRELIMINARY 2021-01-03 01:17:47 [facility] INTERPRETATION Mccaskill XR TIBIA FIBULA 2 VW 2021-01-03 01:05:31 [facility] RIGHT Mccaskill XR FOOT 3+ VW LEFT 2021-01-03 01:05:05 [facility] Richard ECG 12-LEAD 2021-01-03 00:52:38 [facility] BLOOD CULTURE, AEROBIC & 2021-01-03 00:47:00 [facility] JOSE LUIS Ramos BLOOD CULTURE, AEROBIC & 2021-01-03 00:45:00 [facility] ANAEROBIC Richard HC COMPLETE BLD COUNT 2021-01-03 00:43:00 [facility] W/AUTO DIFF Richard BASIC METABOLIC PANEL 2021-01-03 00:43:00 [facility] Richard HEPATIC FUNCTION PANEL 2021-01-03 00:43:00 [facility] Richard LACTIC ACID LEVEL, SEPSIS 2021-01-03 00:43:00 [facility] - NOW AND REPEAT 2X EVERY Richard 3 HOURS LIPASE LEVEL 2021-01-03 00:43:00 [facility] Richard TROPONIN 2021-01-03 00:43:00 [facility] B NATRIURETIC PEPTIDE 2021-01-03 00:43:00 [facility] Richard ESTIMATED GFR 2021-01-03 00:43:00 [facility] Richard Amputation 2020-08-04 00:00:00 [facility] [id number] 2020-07-04 00:00:00 DAVJO.04 [facility] [id number] 2020-07-04 00:00:00 DAVJO.04 [facility] [id number] 2020-07-04 00:00:00 DAVJO.04 [facility] [id number] 2020-07-04 00:00:00 DAVJO.04 [facility] [id number] 2020-07-04 00:00:00 DAVJO.04 [facility] [id number] 2020-07-04 00:00:00 DAVJO.[email or web address] [facility] [id number] 2020-07-04 00:00:00 DAVJO.04 [facility] [id number] 2020-07-04 00:00:00 DAVJO.04 [facility] [id number] 2020-07-01 00:00:00 JARKE [facility] [id number] 2020-07-01 00:00:00 JARKE [facility] [id number] 2020-07-01 00:00:00 CRISTIANO [facility] [id number] 2020-07-01 00:00:00 CRISTIANO [facility] Teeth [facility] [id number]. 2 Annual Eye Exam - FOR [facility] [id number]. NON-DIABETICS ONLY 2 COLONOSCOPY IN ADULT [facility] [id number]. (96409) 2 Patient received annual [facility] 2.16.840 .[id number]. dental check-up 2 Plan of Care Planned Activity Planned [...] yrs)] Future Scheduled 2022-08-19 COVID-19 VACCINE (#1) [facility] Hospital Test 10:24:38 [code = COVID-19 VACCINE (#1)] Future Scheduled 2022-08-19 DIABETES: RETINAL EYE [facility] Test 10:24:38 EXAM [code = DIABETES: RETINAL EYE EXAM] Future Scheduled 2022-08-[address] [facility] Test 10:24:38 [code = DIABETIC FOOT EXAM] Future Scheduled 2022-08-[address] [facility] 10:24:38 [code = URINE MICROALBUMIN] Future Scheduled 2022-08-19 Hepatitis C screening [facility] Hospital Test 10:24:38 (procedure) [code = 774490218] Future Scheduled 2022-08-19 COLONOSCOPY SCREENING [facility] Hospital Test 10:24:38 [code = COLONOSCOPY SCREENING] Future Scheduled 2022-08-19 [facility] Test 10:24:38 malignant neoplasm of lung (procedure) [code = 078249501] Future Scheduled 2022-08-19 SHINGLES VACCINES (1 [facility] Hospital Test 10:24:38 of 2) [code = SHINGLES VACCINES (1 of 2)] Future Scheduled 2022-08-19 INFLUENZA VACCINE [facility] Test 10:24:38 [code = INFLUENZA VACCINE] Future Scheduled 2022-08-19 COVID-19 VACCINE (#1) [facility] Test 10:24:38 [code = COVID-19 VACCINE (#1)] Future Scheduled 2022-08-19 DIABETES: RETINAL EYE [facility] Test 10:24:38 EXAM [code = DIABETES: RETINAL EYE EXAM] Future Scheduled 2022-08-19 DIABETIC FOOT EXAM [facility] Test 10:24:38 [code = DIABETIC FOOT EXAM] Future Scheduled 2022-08-19 URINE [facility]ALBUMIN [facility] Test 10:24:38 [code = URINE MICROALBUMIN] Future Scheduled 2022-08-19 Hepatitis C screening [facility] Hospital Test 10:24:38 (procedure) [code = [id number]] Future Scheduled 2022-08-19 COLONOSCOPY SCREENING [facility] Hospital Test 10:24:38 [code = COLONOSCOPY SCREENING] Future Scheduled 2022-08-19 [facility] Test 10:24:38 malignant neoplasm of lung (procedure) [code = 733817633] Future Scheduled 2022-08-19 SHINGLES VACCINES (1 [facility] Test 10:24:38 of 2) [code = SHINGLES VACCINES (1 of 2)] Future Scheduled 2022-08-19 INFLUENZA VACCINE [facility] Test 10:24:38 [code = INFLUENZA VACCINE] Future Scheduled 2022-08-19 COVID-19 VACCINE (#1) [facility] Test 10:24:38 [code = COVID-19 VACCINE (#1)] Future Scheduled 2022-08-19 DIABETES: RETINAL EYE [facility] Test 10:24:38 EXAM [code = DIABETES: RETINAL EYE EXAM] Future Scheduled 2022-08-19 DIABETIC FOOT EXAM [facility] Test 10:24:38 [code = DIABETIC FOOT EXAM] Future Scheduled 2022-08-19 URINE [facility]ALBUMIN [facility] Test 10:24:38 [code = URINE MICROALBUMIN] Future Scheduled 2022-08-19 Hepatitis C screening [facility] Test 10:24:38 (procedure) [code = 780332211] Future Scheduled 2022-08-19 COLONOSCOPY SCREENING [facility] Hospital Test 10:24:38 [code = COLONOSCOPY SCREENING] Future Scheduled 2022-08-19 [facility] Test 10:24:38 malignant neoplasm of lung (procedure) [code = 225691864] Future Scheduled 2022-08-19 SHINGLES VACCINES (1 [facility] Test 10:24:38 of 2) [code = SHINGLES VACCINES (1 of 2)] Future Scheduled 2022-08-19 INFLUENZA VACCINE [facility] Test 10:24:38 [code = INFLUENZA VACCINE] Future Scheduled 2022-08-19 COVID-19 VACCINE (#1) [facility] Test 10:24:38 [code = COVID-19 VACCINE (#1)] Future Scheduled 2022-08-19 DIABETES: RETINAL EYE [facility] Test 10:24:38 EXAM [code = DIABETES: RETINAL EYE EXAM] Future Scheduled 2022-08-[address] [facility] Test 10:24:38 [code = DIABETIC FOOT EXAM] Future Scheduled 2022-08-[address] [facility] 10:24:38 [code = URINE MICROALBUMIN] Future Scheduled 2022-08-19 Hepatitis C screening [facility] Hospital Test 10:24:38 (procedure) [code = [id number]] Future Scheduled 2022-08-19 COLONOSCOPY SCREENING [facility] Hospital Test 10:24:38 [code = COLONOSCOPY SCREENING] Future Scheduled 2022-08-19 [facility] Test 10:24:38 malignant neoplasm of lung (procedure) [code = 951794394] Future Scheduled 2022-08-19 SHINGLES VACCINES (1 [facility] Test 10:24:38 of 2) [code = SHINGLES VACCINES (1 of 2)] Future Scheduled 2022-08-19 INFLUENZA VACCINE [facility] Test 10:24:38 [code = INFLUENZA VACCINE] Future Scheduled 2022-01-19 IMM Influenza Seasonal [facility] Test 00:00:00 (>/= 19 yrs) [code = IMM Influenza Seasonal (>/= 19 yrs)] Future Scheduled 2022-01-19 IMM Influenza Seasonal H [facility] Test 00:00:00 (>/= 19 yrs) [code = IMM Influenza Seasonal (>/= 19 yrs)] Future Scheduled 2021-12-17 HEPATITIS B VACCINES Met [facility] Test 10:00:08 (1 of 3 - 3-dose series) [code = HEPATITIS B VACCINES (1 of 3 - 3-dose series)] Future Scheduled 2021-12-17 COVID-19 VACCINE (#1) [facility] Test 10:00:08 [code = COVID-19 VACCINE (#1)] Future Scheduled 2021-12-17 Pneumococcal Vaccine: [facility] Test 10:00:08 Pediatrics (0 to 5 Years) and At-Risk Patients (6 to 64 Years) (1 - PCV) [code = Pneumococcal Vaccine: Pediatrics (0 to 5 Years) and At-Risk Patients (6 to 64 Years) (1 - PCV)] Future Scheduled 2021-12-[address] [facility] Test 10:00:08 (procedure) [code = [id number]] Future Scheduled 2021-12-[address] [facility] Test 10:00:08 [code = COLONOSCOPY SCREENING] Future Scheduled 2021-12-17 SHINGLES VACCINES (1 Met [facility] Test 10:00:08 of 2) [code = SHINGLES VACCINES (1 of 2)] Future Scheduled 2021-12-17 INFLUENZA VACCINE Method [facility] Test 10:00:08 [code = INFLUENZA VACCINE] Future Scheduled 2021-12-17 HEPATITIS B VACCINES Met [facility] Test 10:00:08 (1 of 3 - 3-dose series) [code = HEPATITIS B VACCINES (1 of 3 - 3-dose series)] Future Scheduled 2021-12-17 COVID-19 VACCINE (#1) [facility] Test 10:00:08 [code = COVID-19 VACCINE (#1)] Future Scheduled 2021-12-17 Pneumococcal Vaccine: [facility] Test 10:00:08 Pediatrics (0 to 5 Years) and At-Risk Patients (6 to 64 Years) (1 - PCV) [code = Pneumococcal Vaccine: Pediatrics (0 to 5 Years) and At-Risk Patients (6 to 64 Years) (1 - PCV)] Future Scheduled 2021-12-[address] [facility] Test 10:00:08 (procedure) [code = 174310551] Future Scheduled 2021-12-[address] [facility] Test 10:00:08 [code = COLONOSCOPY SCREENING] Future Scheduled 2021-12-17 SHINGLES VACCINES (1 Met [facility] Test 10:00:08 of 2) [code = SHINGLES VACCINES (1 of 2)] Future Scheduled 2021-12-17 INFLUENZA VACCINE Method [facility] Test 10:00:08 [code = INFLUENZA VACCINE] Diagnostic Test 2021-06-29 HEMOGLOBIN GLYCLATED Pending 14:06:03 (HGB A1C) (28221) [code = 88084] Diagnostic Test 2021-06-29 CBC & PLATELETS (AUTO) Pending 14:05:14 (28713) [code = 41940] Diagnostic Test 2021-06-29 MICROALBUMIN/CREAT. Pending 13:35:45 RATIO WITH CREATININE (ALONDRA URINE) (27172) [code = 79694] Diagnostic Test 2021-06-29 LIPID PANEL (63466) Pending 13:35:39 [code = 12742] Diagnostic Test 2021-06-29 COMPREHENSIVE Pending 13:35:39 METABOLIC PANEL (26860) [code = 46286] Future Scheduled 2017 Screening for [facility] Test 00:00:00 malignant neoplasm of colon (procedure) [code = 489736296] Future Scheduled 2017 Screening for [facility] Test 00:00:00 malignant neoplasm of colon (procedure) [code = 015749036] Future Scheduled 2017 Screening for [facility] Test 00:00:00 malignant neoplasm of colon (procedure) [code = 620913964] Future Scheduled 2017 Scre[facility] for [facility] Test 00:00:00 malignant neoplasm of colon (procedure) [code = 867705644] Future Scheduled 2017 Scre[facility] for [facility] Test 00:00:00 malignant neoplasm of colon (procedure) [code = 263566545] Future Scheduled 1985 DM Foot Exam (Yearly) [facility] Test 00:00:00 [code = DM Foot Exam (Yearly)] Future Scheduled 1985 Urine screening for [facility] Test 00:00:00 protein (procedure) [code = 754690549] Future Scheduled 1985 DM Retinal Exam [facility] Test 00:00:00 (Yearly) [code = DM Retinal Exam (Yearly)] Future Scheduled 1985 DM Foot Exam (Yearly) [facility] Test 00:00:00 [code = DM Foot Exam (Yearly)] Future Scheduled 1985 Urine [facility] for [facility] Test 00:00:00 protein (procedure) [code = 891437477] Future Scheduled 1985 DM [facility]inal [facility]am [facility] Test 00:00:00 (Yearly) [code = DM Retinal Exam (Yearly)] Future Scheduled 1985 Diabetic foot [facility] Test 00:00:00 examination (regime/therapy) [code = 650499700] Future Scheduled 1985 Urine [facility] for [facility] Test 00:00:00 protein (procedure) [code = 440621768] Future Scheduled 1985 DM [facility]inal [facility]am [facility] 00:00:00 (Yearly) [code = DM Retinal Exam (Yearly)] Future Scheduled 1985 Diabetic foot [facility] Test 00:00:00 examination (regime/therapy) [code = 668462469] Future Scheduled 1985 Urine [facility] for [facility] Test 00:00:00 protein (procedure) [code = 308928626] Future Scheduled 1985 DM [facility] 00:00:00 (Yearly) [code = DM Retinal Exam (Yearly)] Future Scheduled 1985 Diabetic foot [facility] Test 00:00:00 examination (regime/therapy) [code = 154311747] Future Scheduled 1985 Urine [facility] Test 00:00:00 protein (procedure) [code = 837304266] Future Scheduled 1985 DM [facility]inal Exam [facility] Test 00:00:00 (Yearly) [code = DM Retinal Exam (Yearly)] Future Scheduled 1967 COVID-19 Vaccine (#1) [facility] Test 00:00:00 [code = COVID-19 Vaccine (#1)] Future Scheduled 1967 COVID-19 Vaccine (#1) [facility] Test 00:00:00 [code = COVID-19 Vaccine (#1)] Future Scheduled 1967 COVID-19 Vaccine (#1) [facility] Test 00:00:00 [code = COVID-19 Vaccine (#1)] Future Scheduled 1967 COVID-19 Vaccine (#1) [facility] Test 00:00:00 [code = COVID-19 Vaccine (#1)] Future Scheduled 1967 COVID-19 Vaccine (#1) [facility] Test 00:00:00 [code = COVID-19 Vaccine (#1)] Future Scheduled 1967 Hemoglobin A1c [facility] 00:00:00 measurement (procedure) [code = 68713680] Future Scheduled 1967 Fluoride Varnish [code [facility] Test 00:00:00 = Fluoride Varnish] Future Scheduled 1967 Hemoglobin A1c [facility] Test 00:00:00 measurement (procedure) [code = 16859120] Future Scheduled 1967 Fluoride Varnish [code [facility] Test 00:00:00 = Fluoride Varnish] Future Scheduled 1967 Hemoglobin A1c [facility] 00:00:00 measurement (procedure) [code = 52992051] Future Scheduled 1967 Hemoglobin A1c [facility] Test 00:00:00 measurement (procedure) [code = 50578818] Future Scheduled 1967 Hemoglobin A1c [facility] Test 00:00:00 measurement (procedure) [code = 70269251] Encounters Start End Encounter Admission Attending Care Care Encounter Source Date/Time Date/Time Type Type Clinicians Facility Department ID 2022-09-18 Outpatient [id number] B36D ED90-5 Memoria 10:27:41 541D-469D 1D-469D-BD0 41D-469D- B l -PN45-96P [id number] J87-92V0RD Guille [id number] 07A 68045G 2022-09-05 Outpatient [id number]- 45281NC1-91 2321 5DA0-4 Memoria 19:47:40 4550-4F68 50-2C61-5JX 550-4F68- 9 l -2BI8-Y65 8-G904D7JL8 EF8-C365D8 Guille [id number] C31 EA8C31 2022-08-22 Outpatient [id number]- 016ZD0KZ-MZ 040A D3FD-E Memoria 13:17:42 EEDC-4D67 DC-6Y24-H6G EDC-4D67- B l -X5M9-JL8 8-OB1967965 2G8-HE0926 Guille [id number] 901 005007 4863-05-01 Outpatient [id number]- 92600O87-A4 2664 7F96-A Memoria 10:26:06 P1M9-3M95 D0-8I59-EF1 5X1-5W92- B l -GZ1C-W41 D-K67I180M4 K5S-H26H44 Guille [id number] 284 [id number] 2022-07-01 Outpatient [id number]- 19KH48X1-4D 52CB 02A8-1 Memoria 18:22:57 0E88-5O7Q 86-0L3Z-E9C M72-7C8J- A l -F3DY-583 F-007S885KY 7DF-972C65 Guille P257PB564 841 5HY397 2022-06-25 Outpatient [id number]- N971SR0B-99 C555 AD3A-6 Memoria 13:13:28 6801-408F 01-408F-9CD 801-408F- 9 l -7WV8-5Z5 5-7Y16P6662 CD5-9B11D0 Guille [id number] CAF 333CAF 2022-06-21 Outpatient [id number]- [id number] 2314 01CA-8 Memoria 16:24:21 8273-427F 73-427F-927 273-427F- 9 l -9279-910 9-7923961EO 279-013537 Guille 4941JQ33S 00D 8DD00D 2022-05-10 Outpatient [id number]- 9V6FK985-O7 2E9D D710-A Memoria 06:40:42 B48T-84L9 5F-78Y5-01H 65F-48A2- 9 l -43J9-9S6 9-3S515JDWB 2L6-7E843C Guille [id number] 329 MHU545 2022-05-08 Outpatient HPL2VRG5- AYI4ACK9-81 BEF6 CBA3-5 Memoria 15:37:53 503B-4880 3B-4880-9B6 03B-4880- 9 l -1Y3G-9HU D-7KHU92557 L4B-3RIL66 Guille [id number] C18 509C18 2022-04-19 Outpatient 2TZM3R4M- 5ZAZ2V8O-52 1BBB 5C0D-8 Memoria 13:59:31 23N4-7218 F1-4973-998 9P2-0404- 9 l -998B-F76 B-M85414568 98B-V87295 Guille [id number] 327 966841 3333-12-28 Outpatient 53NVN75V- 57OBS24I-WC 79BE F91E-D Memoria 13:31:43 DAD3-4873 D3-4873-877 AD3-4873- 8 l -8771-2E6 1-8E4O334I8 771-2E6E91 Guille Z782C5300 342 [id number] 2022-04-13 Outpatient 7754W5U1- 0574W2V3-85 4505 A0B3-1 Memoria 15:36:01 15FB-4C6B FB-6H0B-W91 5FB-4C6B- A l -W45P-P54 B-G48P0Z915 59B-D42D0C Guille A1G896K0T A6F 833A6F 2022-04-12 Outpatient 70Z3KWQ6- 14Q7PGV4-3E 06B9 BCB5-0 Memoria 15:30:39 9E24-0WI8 07-2VA3-830 B42-0OO2- 9 l -9202-AD6 2-YV99V55VN -AD61D6 Guille 2S20FEQ76 A84 7EAA84 2022-03-11 Outpatient 204W9DD8- 030W0SE9-93 938D 5EE5-8 Memoria 19:30:21 857A-4A82 7A-1J96-A1H 57A-4A82- B l -V9O1-0A0 5-6Z76247VQ 9B5-6F9304 Guille 0677EU325 155 5TC335 2022-03-08 Outpatient [id number]- [id number] 3A45 0898-9 Memoria 21:44:29 9339-4C22 39-7A66-H08 339-4C22- A l -X78V-41B E-89V51ECJU 45E-85D07A Guille 51OYTX099 545 GMO719 2022-01-04 Outpatient 6MHP1IIF- 7BAM3XKD-2S 9DDA 6CAA-4 Memoria 07:00:32 8C09-2133 77-4012-BA3 R83-6157- B l -SF27-N61 9-L25FDEFD0 T08-D56PQS Guille ORQAO8OM3 CD2 AD3CD2 2021-12-31 Outpatient [id number]- 372670N7-J7 3447 38E1-B Memoria 12:10:15 N6G7-663P E1-485D-91D 7B2-202B- 9 l -48V7-H22 2-S39362873 0T2-G86330 Guille 722208VJ9 AC5 327AC5 2021-10-07 [id number] 06:58:00 Jerry [id number] [facility] 2021-07-14 Outpatient [facility] [id number] Lone 04:59:20 [id number] Branch [facility] 2021-06-28 Outpatient [facility] LS [id number] [place] 15:37:52 Branch [facility] 2021-06-15 Outpatient [facility] LS [id number] Lone 11:20:44 [id number] [place] 2021-03-30 Outpatient [id number]- 8480AS07-3Q 9110 FB25-7 Memoria 23:09:22 6R67-414K 85-469A-9A5 X24-464E- 9 l -0N4I-D42 B-K6193Q896 E0I-L7508G Guille 84R540I26 B38 918B38 2020-06-30 Inpatient HCAKW HCAKW [id number] [facility] 09:04:59 17 [facility] 2020-02-27 Inpatient HCACR AMA [id number] [facility] 13:37:00 01 Vielka [facility] 2019-10-08 Inpatient HCABM NCER [id number] H[facility] 12:23:00 18 [facility] 2022-12-03 2022-12-03 [facility] [id number] Univers 08:00:00 08:00:00 [facility] 2022-11-06 2022-11-06 Outpatient R HALEY KRAFTVAN [facility] [id number] Univers 13:30:00 13:30:00 SHANTEL KRAFT [facility] 2022-09-20 2022-09-20 Outpatient [facility] [id number] Univers 13:00:00 13:00:00 [facility] 2022-09-17 2022-09-[address] [facility] 1.2.840.114 103 [id number] Univers 00:00:00 00:00:00 Jeni CHAMBERS 350.1.13.10 i [place] [id number] [address] 2022-09-13 2022-09-13 Outpatient R [facility] [id number] Univers 11:00:00 11:00:00 [facility] 2022-09-13 2022-09-[address] [facility] 1.2.840.114 103 [id number] Univers 00:00:00 00:00:00 Jeni CHAMBERS 350.1.13.10 i ty [facility] [place] [phone] [address] 2022-09-12 2022-09-12 Emergency [facility] 1.2.840.114 10 [id number] Univers 21:33:00 22:56:00 Hui [place] 350.1.13.10 ity of [facility] [place] [id number] [facility] [address] [place] 2022-09-12 2022-09-12 Hospital [facility] 1.2.840.114 [id number] Univers 15:07:02 21:32:00 Encounter Alexandra CHAMB[place] 350.1.13.10 [place] [id number] [facility] [address] [place] 2022-09-12 2022-09-12 Can Marker 2, Adc Lab [facility] 1.2.840.114 [id number] Univers 15:30:00 15:45:00 Visit Alexandra FinneganHUNG 350.1.13.10 ity [facility] [place] [id number] [place] N[place] 353 [facility] 2022-09-12 2022-09-12 [facility] [id number] Univers 13:30:00 14:26:44 ALEXANDRA ity [facility] 2022-09-12 2022-09-12 Outpatient R [facility] ERT [id number] Univers 13:30:00 14:26:44 ALEXANDRA espana [facility] 2022-09-12 2022-09-12 Office [facility] 1.2.840.114 [id number] Univers 13:30:00 14:26:44 Visit Alexandra TRISH 350.1.13.10 i [place] [id number] [place]ical NAL 044 [facility] 2022-09-12 2022-09-12 Telephone [facility] 1.2.414.465 [id number] Univers 00:00:00 00:00:00 Alexandra TRISH 350.1.13.10 i ty [facility] [place] [id number] [place] NAL 044 [facility] 2022-09-11 2022-09-11 Telephone [facility] 1.2.840.114 103 [id number] Univers 00:00:00 00:00:00 Ogechukwu [place] 350.1.13.10 ity of [place] [id number] [place] NAL 044 [facility] 2022-09-10 2022-09-10 Outpatient R DAJA [facility] [id number] Univers 10:30:00 11:36:35 JENI ity of [facility] 2022-09-06 2022-09-06 [facility] 1.2.840.114 103 [id number] Univers 00:00:00 00:00:00 Ogechukwu [place] 350.1.13.10 ity of [facility] [place] [id number] [place] dical NAL 044 [facility] 2022-09-06 2022-09-06 [facility] 1.2.840.114 103 [id number] Univers 00:00:00 00:00:00 Ogsocorroukjaeu [place] 350.1.13.10 ity of [facility] [place] [id number] [place] dical NAL 044 [facility] 2022-09-05 2022-09-05 Refill [facility] 1.2.840.114 [id number] Univers 00:00:00 00:00:00 Ogsocorroukwu [place] 350.1.13.10 ity of [facility] [place] [id number] [place] dical NAL 044 [facility] 2022-09-04 2022-09-04 Patient [facility] 1.2.840.114 [id number] Univers 00:00:00 00:00:00 Outreach Mari CHAMBERS 350.1.13.10 ity of [place] [id number] [place] dical NAL 231 [facility] 2022-09-04 2022-09-04 Orders Doctor GILBERT 1.2.840.114 [id number] Univers 00:00:00 00:00:00 Only Unassigned, BRANDEE 350.1.13.[address] [facility] 4.2.7.2.686 Suhas as [id number] [address] 2022-09-02 2022-09-02 [facility] 1.2.840.114 103 [id number] Univers 00:00:00 00:00:00 Ogechukwu [place] 350.1.13.10 ity of [facility] [place] [id number] [place] dical NAL 044 [facility] 2022-08-30 2022-08-30 [facility]phone [facility] 1.2.840.114 103 [id number] Univers 00:00:00 00:00:00 Ogechukwu [place] 350.1.13.10 [place] [id number] Ky dicmi NAL 044 [facility] 2022-08-28 2022-08-28 Telephone [facility] 1.2.840.114 103 [id number] Univers 00:00:00 00:00:00 Ogechukwu [place] 350.1.13.10 ity of [facility] 4[place] [id number] Ky dicmi NAL 231 [facility] 2022-08-27 2022-08-27 [facility]phone [facility] 1.2.840.114 103 [id number] Univers 00:00:00 00:00:00 Ogechukwu [place] 350.1.13.10 ity of [facility] 4[place] [id number] [place] dical NAL 044 [facility] 2022-08-27 2022-08-27 [facility]phone [facility] 1.2.840.114 103 [id number] Univers 00:00:00 00:00:00 Ogechukwu [place] 350.1.13.10 ity of [facility] 4[place] [id number] [place] dical NAL 044 [facility] 2022-08-26 2022-08-26 [facility]phone [facility] 1.2.840.114 103 [id number] Univers 00:00:00 00:00:00 Ogechukwu [place] 350.1.13.10 ity of [facility] 4[place] [id number] [place] dical [address] 2022-08-21 2022-08-21 Abstract [facility] 1.2.717.848 [id number] 73076 Univers 00:00:00 00:00:00 Ogechukwu [place] 350.1.13.10 ity of [facility] [place] [id number] [place] dical NAL [address] [place] [address] 2022-08-19 2022-08-19 Telephone [facility] 1.2.840.114 102 [id number] Univers 00:00:00 00:00:00 Ogechukwu [place] 350.1.13.10 [place] [id number] [address] 2022-08-15 2022-08-15 Outpatient R RENEE [facility] [id number] Univers 15:40:00 15:40:00 LEIGHTON JEFFERSON y [facility] 2022-08-14 2022-08-14 [facility] [id number] Univers 00:06:00 03:01:00 LES [facility] 2022-08-14 2022-08-14 Emergency [facility] 1.2.840.114 1 [id number] Univers 00:06:00 03:01:00 Les CHAMBERS 350.1.13.10 i [place] [id number] [facility] [address] [place] [address] 2022-08-08 2022-08-08 Outpatient R CIARA [facility] [id number] Univers 16:45:00 15:22:09 BLAS [facility] 2022-08-07 2022-08-07 Orders Doctor KOENIG 1.2.840.114 [id number] Univers 00:00:00 00:00:00 Only Unassigned, BRANDEE 350.1.13.10 ity of [facility] 4.2.7.2.686 Suhas as [id number] [address] 2022-08-07 2022-08-07 Telephone Nimo GABARI 1.2.840.114 102 [id number] [facility] 00:00:00 00:00:00 Ogestevan CHAMBERS 350.1.13.10 [place] [id number] [place] dicmi NAL [address] [place] [address] 2022-08-05 2022-08-05 Outpatient R SHANTEL KRAFT [facility] [id number] Univers 13:00:00 14:16:22 SHANTEL KRAFT ity of [facility] 2022-08-05 2022-08-05 Office Nimo [facility] 1.2.840.114 [id number] [facility] 13:00:00 14:16:22 Visit Mtathewestevan CHAMB[place] 350.1.13.10 [place] [id number] [address] 2022-08-05 2022-08-05 Patient Bao [facility] 1.2.840.114 [id number] 714 [facility] 00:00:00 00:00:00 Outreach Mari Nadir CHAMB[place] 350.1.13.10 [place] [phone] [place] dicmi NAL [address] [place] [address] 2022-08-02 2022-08-02 Orders Doctor GILBERT 1.2.840.114 [id number] Univers 00:00:00 00:00:00 Only Unassigned, BRANDEE 350.1.13.10 ity of [facility] 4.2.7.2.686 Suhas as [id number] [address] 2022-08-02 2022-08-02 Telephone GILBERT Mcneal 1.2.840.114 10 [id number] Univers 00:00:00 00:00:00 Clare IRVIN 350.1.13.10 it y of HOSPITAL 4.2.7.2.686 Suhas as [id number] [facility] [address] 2022-08-01 2022-08-01 Transition TANI Snow 1.2.840.114 102 [id number] Univers 00:00:00 00:00:00 of Care Alex MORALES 350.1.13.10 ity of [place] [id number] [facility] [address] 2022-08-01 2022-08-01 Telephone GILBERT Mcneal 1.2.840.114 10 [id number] Univers 00:00:00 00:00:00 Clare BRANDEE 350.1.13.10 it y of [facility] 4.2.7.2.686 Suhas as [id number] [facility] [address] 2022-07-28 2022-07-31 Inpatient [facility] [id number] Univers 01:36:00 19:14:00 MALIK espana [facility] 2022-07-28 2022-07-31 Hospital Brennan Love 1.2.840.114 [id number] Univers 01:36:00 19:14:00 Encounter Malik Mayo 350.1.13.10 ity of [facility] 4.2.7.2.686 Suhas as [id number] [facility] [address] 2022-07-18 2022-07-19 Emergency [facility] 1.2.153.204 3225 47421 Univers 21:30:00 01:47:00 Adolfo CHAM[place] 350.1.13.10 [place] GU[place] [id number] [facility] [address] 2022-07-18 2022-07-19 Emergency X [facility] ERT [id number] Univers 21:30:00 01:47:00 ADOLFO espana [facility] 2022-06-25 2022-07-03 [facility] Hilda Francesca 1.2.840.1 [id number] Methodi 10:52:00 03:00:00 Encounter Wilberto Joe Sda 94330.1.[address] Naif [place] 3.430.2.7 H ospita .3.368979 l .8 2022-06-25 2022-07-03 [facility] Francesca Stevens 1.2.840.1 [id number] Methodi 10:52:00 03:00:00 Encounter Wilberto Joe Sdmichael 35713.1.1 [address] [place] 3.430.2.7 H ospita .3.284643 l .8 2022-07-03 2022-07-03 Documentat Abrams, 1.2.840.1 [id number] 2 [id number] Methodi 00:00:00 00:00:00 ion Cheryle 44576.1.[address] 3.430.2.7 Hospit a .3.575694 l .8 2022-07-03 2022-07-03 Documentat Abrams, 1.2.840.1 [id number] 2 [id number] Methodi 00:00:00 00:00:[address] ion Cheryle [address]80.1.[address] 3.430.2.7 Hospit a .3.153831 l .8 2022-06-26 2022-06-26 Surgery Nurko, 1.2.840.1 [id number] 017111 3501 Methodi 16:50:00 18:20:[address] 3.430.2.7 Hospit a .3.427250 l .8 2022-06-26 2022-06-26 Surgery Nurko, 1.2.840.1 [id number] 813237 5420 Methodi 16:50:00 18:20:[address] 3.430.2.7 Hospit a .3.135718 l .8 2022-06-26 2022-06-26 Anesthesia [facility] 1.2.840.1 104 [id number] Methodi 16:46:00 17:36:00 Event Thong Torres 59816.1.[address] 3.430.2.7 Hospit a .3.724262 l .8 2022-06-26 2022-06-26 Anesthesia [facility] 1.2.840.1 104 [id number] [id number] Methodi 16:46:00 17:36:00 Event Thong Torres 83032.1.[address] 3.430.2.7 Hospit a .3.661127 l .8 2022-06-25 2022-06-25 Office Cassidymaryjane, 1.2.840.1 [id number] [id number] 9266 Methodi 09:00:00 10:28:55 Visit Davin 33689.1.[address] 3.430.2.7 Hospit a .3.121502 l .8 2022-06-25 2022-06-25 Office Aaron, 1.2.840.1 [id number] 719344 1838 Methodi 09:00:00 10:28:55 Visit Davin 98627.1.[address] 3.430.2.7 Hospit a .3.530025 l .8 2022-06-25 2022-06-25 Travel 1.2.840.1 1.2.285.992 7070 900909 Methodi 00:00:00 00:00:[address] 3.430.2.7 0.2.7.3.698 Ho spita .3.986114 084.8 l .8 2022-06-25 2022-06-25 Travel 1.2.840.1 1.2.416.883 1512 625235 Methodi 00:00:00 00:00:[address] 3.430.2.7 0.2.7.3.698 Ho spita .3.811958 084.8 l .8 2022-06-21 2022-06-21 Office Davin Walker 1.2.840.1 [id number] Methodi 13:00:00 14:47:04 Visit Louisa Escobar 06245.1.[address] 3.430.2.7 Hospit a .3.612109 l .8 2022-06-21 2022-06-21 Office Davin Walker 1.2.840.1 [id number] Methodi 13:00:00 14:47:04 Visit Louisa Escobar 32983.1.[address] 3.430.2.7 Hospit a .3.933209 l .8 2022-06-21 2022-06-21 Travel 1.2.840.1 1.2.956.939 0419 979960 Methodi 00:00:00 00:00:[address] 3.430.2.7 0.2.7.3.698 Ho spita .3.814405 084.8 l .8 2022-06-21 2022-06-21 Travel 1.2.840.1 1.2.471.835 8528 170115 Methodi 00:00:00 00:00:[address] 3.430.2.7 0.2.7.3.698 Ho spita .3.336746 084.8 l .8 2022-06-14 2022-06-14 Office Aaron, 1.2.840.1 [id number] 827444 5536 Methodi 13:10:00 13:23:28 Visit Davin 06765.1.[address] 3.430.2.7 Hospit a .3.051927 l .8 2022-06-14 2022-06-14 Office Aaron, 1.2.840.1 [id number] 072438 2094 Methodi 13:10:00 13:23:28 Visit Davin 15709.1.[address] 3.430.2.7 Hospit a .3.062802 l .8 2022-06-14 2022-06-14 Travel 1.2.840.1 1.2.013.540 8019 780506 Methodi 00:00:00 00:00:[address] 3.430.2.7 0.2.7.3.698 Ho spita .3.281888 084.8 l .8 2022-06-14 2022-06-14 Travel 1.2.840.1 1.2.565.964 1932 814067 Methodi 00:00:00 00:00:[address] 3.430.2.7 0.2.7.3.698 Ho spita .3.545229 084.8 l .8 2022-05-24 2022-05-24 Office [facility], 1.2.840.1 [id number] 503650 1689 Methodi 14:00:00 14:54:06 Visit Davin 53066.1.[address] 3.430.2.7 Hospit a .3.070022 l .8 2022-05-24 2022-05-24 Office [facility], 1.2.840.1 [id number] 914963 4521 Methodi 14:00:00 14:54:06 Visit Davin 92259.1.[address] 3.430.2.7 Hospit a .3.837315 l .8 2022-05-24 2022-05-24 Travel 1.2.840.1 1.2.617.280 8673 731966 Methodi 00:00:00 00:00:[address] 3.430.2.7 0.2.7.3.698 Ho spita .3.014689 084.8 l .8 2022-05-24 2022-05-24 Travel 1.2.840.1 1.2.620.774 1205 597403 Methodi 00:00:00 00:00:[address] 3.430.2.7 0.2.7.3.698 Ho spita .3.011600 084.8 l .8 2022-05-08 2022-05-14 [facility] Farr 1.2.840.1 [id number] Methodi 11:57:00 14:24:00 Encounter Noman Brewer 68687.1.1 [address] 3.430.2.7 Hospita .3.104770 l .8 2022-05-08 2022-05-14 [facility] Farr 1.2.840.1 [id number] Methodi 11:57:00 14:24:00 Encounter Noman Brewer 95248.1.[address] Ron [facility] Ding 3.430.2.7 Hospita .3.080281 l .8 2022-05-14 2022-05-14 [facility], 1.2.840.1 [id number] Methodi 00:00:00 00:00:00 ion Alyse 14323.1.[address] 3.430.2.7 Hospit a .3.429933 l .8 2022-05-14 2022-05-14 Documentat [facility], 1.2.840.1 [id number] Methodi 00:00:00 00:00:[address] Alyse 90024.1.[address] 3.430.2.7 Hospit a .3.364983 l .8 2022-05-10 2022-05-10 Surgery Nurko, 1.2.840.1 [id number] 9526 Methodi 11:00:00 13:05:[address] 3.430.2.7 Hospit a .3.418329 l .8 2022-05-10 2022-05-10 Surgery Nurko, 1.2.840.1 [id number] 059025 7696 Methodi 11:00:00 13:05:[address] 3.430.2.7 Hospit a .3.421331 l .8 2022-05-10 2022-05-10 Anesthesia Beulah Barcenas 1.2.840.1 739311 023 [id number] Methodi 11:12:00 12:34:00 Event Mari Gamboa 11080.1.[address] 3.430.2.7 Hospit a .3.940224 l .8 2022-05-10 2022-05-10 Anesthesia Buelah Barcenas 1.2.840.1 478475 023 [id number] Methodi 11:12:00 12:34:00 Event Mari Gamboa 25949.1.[address] 3.430.2.7 Hospit a .3.110109 l .8 2022-04-24 2022-04-24 Patient Carly, 1.2.840.1 [id number] 92484 87922 Methodi 00:00:00 00:00:00 Outreach Cheri 92710.1.1 432 s t 3.430.2.7 Hospit a .3.111871 l .8 2022-04-24 2022-04-24 Patient Carly, 1.2.840.1 [id number] 45201 Methodi 00:00:00 00:00:00 Outreach Cheri 65721.1.1 432 s t 3.430.2.7 Hospit a .3.564139 l .8 2022-04-12 2022-04-19 [facility], Fortino Feldman 1.2.840 .1 [id number] Methodi 15:27:00 19:06:00 Encounter Ernesto Chuyjavier Vidal 54072.1.1 [facility] 3.430.2.7 Hospita Uriel Pastor .3.541314 l Nadimpalli, July .8 2022-04-12 2022-04-19 [facility] .1 [id number] Methodi 15:27:00 19:06:00 Encounter Hector Orozco Young 40861.1.1 [facility] 3.430.2.7 Hospita Radha Pastord .3.081164 l Nadimpalli, July .8 2022-04-19 2022-04-19 Anesthesia , 1.2.840.1 [id number] 170 [id number] Methodi 14:04:00 14:26:00 Event Jesus 95519.1.[address] Thi 3.430.2.7 Hospit a .3.375846 l .8 2022-04-19 2022-04-19 Anesthesia , 1.2.840.1 [id number] 043 [id number] Methodi 14:04:00 14:26:00 Event Jesus 64974.1.[address] Thi 3.430.2.7 Hospit a .3.223905 l .8 2022-03-08 2022-03-14 [facility] 1.2.840.1 10 [id number] Methodi 22:25:00 20:26:00 Encounter Jeff Short [facility] 39212.1.1 934 [facility], Ron Ding 3.430.2.7 Hospita [facility] .3.905942 l Noman Brewer .8 2022-03-08 2022-03-14 [facility] 1.2.840.1 10 [id number] Methodi 22:25:00 20:26:00 Encounter Jeff Short [facility] 12177.1.1 934 [facility], Ron Ding 3.430.2.7 [facility] .[facility].194872 l Tyron, Elain .8 2022-03-12 2022-03-12 Surgery [facility], 1.2.840.1 [id number] 4075 Methodi 14:03:00 15:48:[address] 3.430.2.7 Hospit a .3.708769 l .8 2022-03-12 2022-03-12 Surgery [facility], 1.2.840.1 [id number] 2481 Methodi 14:03:00 15:48:[address] 3.430.2.7 Hospit a .3.713244 l .8 2022-03-12 2022-03-12 Anesthesia [place], 1.2.840.1 [id number] 072 [id number] Methodi 14:23:00 15:33:00 Event Mary Estevez 71110.1.[address] 3.430.2.7 Hospit a .3.604412 l .8 2022-03-12 2022-03-12 Anesthesia Urrutia, 1.2.840.1 [id number] 323 [id number] Methodi 14:23:00 15:33:00 Event Mary Estevez 21477.1.[address] 3.430.2.7 Hospit a .3.398595 l .8 2022-03-08 2022-03-08 Travel 1.2.840.1 1.2.844.073 0628 [id number] Methodi 00:00:00 00:00:[address] 3.430.2.7 0.2.7.3.698 Ho spita .3.456188 084.8 l .8 2022-03-08 2022-03-08 Travel 1.2.840.1 1.2.097.138 6598 874832 Methodi 00:00:00 00:00:[address] 3.430.2.7 0.2.7.3.698 Ho spita .3.630182 084.8 l .8 2022-01-01 2022-01-05 [id number] [facility] 16:59:00 12:20:00 Ab Vivek [facility] 2021-12-10 2021-12-14 Hospital Wilberto Carbajal 1.2.840.1 104 [id number] Methodi 21:52:00 15:50:00 Encounter Ale Farias 21731.1.[address] René De Jesus 3.430.2.7 Hospita .3.769402 l .8 2021-12-10 2021-12-14 Hospital Wilberto Carbajal 1.2.840.1 104 237595 [id number] Methodi 21:52:00 15:50:00 Encounter Ale Farias Amod 23826.1.[address] René De Jesus Arnulfo 3.430.2.7 Hospita .3.887435 l .8 2021-12-10 2021-12-10 Travel 1.2.840.1 1.2.631.309 1650 517057 Methodi 00:00:00 00:00:[address] 3.430.2.7 0.2.7.3.698 Ho spita .3.874546 084.8 l .8 2021-12-10 2021-12-10 Travel 1.2.840.1 1.2.007.684 0488 861395 Methodi 00:00:00 00:00:[address] 3.430.2.7 0.2.7.3.698 Ho spita .3.120543 084.8 l .8 2021-11-08 2021-11-08 Emergency Mitzi, 1.2.840.1 [id number] 2099 [id number] Methodi 10:26:00 14:01:[address] 3.430.2.7 Hospit a .3.961413 l .8 2021-11-08 2021-11-08 Emergency Mitzi, 1.2.840.1 [id number] 2099 [id number] Methodi 10:26:00 14:01:[address] 3.430.2.7 Hospit a .3.724578 l .8 2021-10-10 2021-10-10 Emergency IpFahad 1.2.840.1 [id number] Methodi 20:57:00 23:49:[address] 3.430.2.7 Hospit a .3.034792 l .8 2021-10-10 2021-10-10 Emergency IpFahad 1.2.840.1 [id number] Methodi 20:57:00 23:49:[address] 3.430.2.7 Hospit a .3.604755 l .8 2021-10-07 2021-10-07 Emergency EM Janina [facility] [id number] [facility] 06:46:00 07:39:00 Jerry 58 [facility] 2021-09-30 2021-09-30 Emergency EM Nataly [facility] [id number] [facility] 18:18:00 19:46:00 Margo 39 [facility] 2021-08-15 2021-08-15 Outpatient GC_HGMDA_Go PRIV PRIV 110 66586-9 [facility] 09:28:00 09:28:00 nzalez_J [id number] Medic al 2021-08-13 2021-08-13 Outpatient GC_HGMDA_Go PRIV PRIV 110 64439-2 [facility] 12:25:00 12:25:00 nzalez_J [id number] Medic al 2021-08-06 2021-08-06 Emergency EM [facility] [id number] [facility] 15:06:00 18:56:00 Brennan 32 [facility] 2021-07-18 2021-07-18 Outpatient IDANIA [facility] [id number] 00:00:00 00:00:00 [facility] 2021-06-29 2021-06-29 Office 0 [place] [id number] 13:30:00 16:29:55 Visit 06 2021-06-29 2021-06-29 Outpatient Berta Schwab [facility] 2343 820-20 [place] 13:13:00 13:13:00 [place] [facility] [id number] [facility] 2021-03-22 2021-03-22 Travel 1.2.840.1 1.2.926.917 7288 [id number] Methodi 00:00:00 00:00:[address] 3.430.2.7 0.2.7.3.698 Ho spita .3.586950 084.8 l .8 2021-02-02 2021-02-02 [facility] [id number] [id number] 26195 Dru 14:47:00 17:56:00 Shazia burns 2021-02-02 2021-02-02 Emergency [facility] [id number] 13 [place] 15:08:10 15:31:04 [facility] 2021-01-02 2021-01-03 Emergency Juan, 1.2.840.1 [id number] 2 [id number] Methodi 18:54:00 01:22:00 Donaldo Ramos 64483.1.[address] 3.430.2.7 Hospit a .3.448947 l .8 2020-12-24 2020-12-24 Emergency RICHARDSON Rebolledo [facility] [id number] [facility] 12:04:00 17:13:00 Jerry [facility] Results Test Description Test Time Test Comments Results Result Comments Source BASIC METABOLIC PANEL (NA, K, CL, CO2, GLUCOSE, BUN, 2022-08 03:38:19 CREATININE, [place]) Test Item Value Reference Range Interpretation Comme nts NA (test code = 4910447803) 137 mmol/L 135-145 K (test code = 2547440078) 5.9 mmol/L 3.5-5.0 H CL (test code = 3384460949) 103 mmol/L 98-108 CO2 TOTAL (test code = 9299053513) 25 mmol/L 23-31 AGAP (test code = 7597885311) 9 2-16 BUN (test code = 2616773285) 23 mg/dL 7-23 GLUCOSE (test code = 1519765137) 235 mg/dL 70-110 H CREATININE (test code = 1.14 mg/dL 0.60-1.25 8240872520) CALCIUM (test code = 7857180827) 8.8 mg/dL 8.6-10.6 eGFR (test code = 6918750368) 66.7 mL/min/1.73m2 MOE (test code = MOE) Association of Glomerular Filtration Rate (GFR) and Staging of Kidney Disease* + +-------- + ------+| GFR (mL/min/1.73 m2) ?| With Kidney Damage ?| ?Without Kidney Damage+ +-- + +| ?>90 ?| ?Stage one ?| ? Normal ?+ +------- + -------+| ?60-89 ?| ?Stage two ?| ? Decreased GFR ? + +-------- + ------+| ?30-59 ?| ?Stage three ?| ? Stage three ? + +-------- + ------+| ?15-29 ?| ?Stage four ? | ? Stage four ?+ +------- + -------+| ?<15 (or dialysis) ? ?| ?Stage five ? | ? Stage five ?+ +------- + -------+ *Each stage assumes the associated GFR [...] or abnormalities in imaging tests). Lab Interpretation (test code = Abnormal 17264-4) [facility]2022-08-14 07:30:03 Test Item Value Reference Range Interpretation Comments POCT GLU (test code = 4715323876) 175 mg/dL 70-110 H Lab Interpretation (test code = Abnormal 03955-1) [facility] METABOLIC [facility]EL (NA, K, CL, CO2, GLUCOSE, BUN, CREATININE, CA)2022-08-14 06:49:10 Test Item Value Reference Range Interpretation Comments NA (test code = 137 mmol/L 135-145 9852731475) K (test code = 4.8 mmol/L 3.5-5.0 4004344358) CL (test code = 106 mmol/L 98-108 6851870845) CO2 TOTAL (test code = 25 mmol/L 23-31 0854367745) AGAP (test code = 6 2-16 9259633633) BUN (test code = 35 mg/dL 7-23 H 2135344103) GLUCOSE (test code = 187 mg/dL 70-110 H 6048121377) CREATININE (test code = 1.19 mg/dL 0.60-1.25 8487484567) CALCIUM (test code = 8.5 mg/dL 8.6-10.6 L 0846748291) eGFR (test code = 63.5 mL/min/1.73m2 3267612832) MOE (test code = MOE) Association of [...] tests). Lab Interpretation Abnormal (test code = 17505-3) [facility] WITH [id number] 06:35:09 Test Item Value Reference Range Interpretation Comments WBC (test code = 6.59 See_Comment [Automated 2374-2) message] The sy stem which generated this result transmitted reference range : 4.20 - 10.70 10*3/?L. The reference range was not used to interpret this result as normal/abnormal . RBC (test code = 3.10 See_Comment L [Automated 787-4) message] The sy stem which generated this [...] (test code = 58.6 fL 38.5-51.6 H 78666-5) RDW-CV (test code = 17.5 % 12.1-15.4 H 788-0) PLT (test code = 328 See_Comment [Automated 777-3) message] The sy stem which generated this result transmitted reference range : 150 - 328 10*3/ ?L. The reference r maggi was not used to interpret this result as normal/abnormal . MPV (test code = 10.1 fL 9.8-13.0 04277-1) NRBC/100 WBC (test 0.0 See_Comment [Automat ed code = 6969926800) message] The system which generated this result transmitted reference range : 0.0 - 10.0 /100 WBCs. The refer ence range was not u sed to interpret th is result as normal/abnormal . NRBC x10^3 (test code See_Comment [Auto mated = 5881305920) message] The s ystem which generated this result transmitted reference range : 10*3/?L. The reference range was not used to interpret this result as normal/abnormal . GRAN MAT (NEUT) % 63.9 % (test code = 770-8) IMM GRAN % (test code 0.50 % = 7699971915) LYMPH % (test code = 24.9 % 736-9) MONO % (test code = 7.4 % 5905-5) EOS % (test code = 2.4 % 713-8) BASO % (test code = 0.9 % 706-2) GRAN MAT x10^3(ANC) 4.21 10*3/uL 1.99-6.95 (test code = 2805659479) IMM GRAN x10^3 (test 0.03 10*3/uL 0.00-0.06 code = 8620988612) LYMPH x10^3 (test code 1.64 10*3/uL 1.09-3.23 = 731-0) MONO x10^3 (test code 0.49 10*3/uL 0.36-1.02 = 742-7) EOS x10^3 (test code = 0.16 10*3/uL 0.06-0.53 711-2) BASO x10^3 (test code 0.06 10*3/uL 0.01-0.09 = 704-7) Lab Interpretation Abnormal (test code = 14996-6) [facility] 12 [id number] 20:13:46 Test Item Value Reference Range Interpretation Comments Ventricular rate (test 79 code = 253) Atrial rate (test code 79 = 255) VT interval (test code 150 = 266) QRSD [...] lengthened-Electronica lly Signed By Jaspreet Cannon MD ([id number]) on 08/08/2022 3:13:43 PM [place] [address] [id number] 20:13:46 Test Item Value Reference Range Interpretation Comments Ventricular rate (test 79 code = 253) Atrial rate (test code 79 = 255) VT interval (test code 150 = 266) QRSD [...] Cannon MD ([id number]) on 08/08/2022 3:13:43 [address]2023-04-20 20:13:46 Test Item Value Reference Range Interpretation Comments Ventricular rate (test 79 code = 253) Atrial rate (test code 79 = 255) VT interval (test code 150 = 266) QRSD [...] Cannon MD ([id number]) on 08/08/2022 3:13:43 PM [address]2023-04-20 20:13:46 Test Item Value Reference Range Interpretation Comments Ventricular rate (test 79 code = 253) Atrial rate (test code 79 = 255) VT interval (test code 150 = 266) QRSD [...] Cannon MD ([id number]) on 08/08/2022 3:13:43 PM [facility] [id number] 05:30:00 Test Item Value Reference Range Interpretation Comments AFB culture No growth Specimen isolate (test after 6 weeks InformationSp imen code = 543-9) of Source: Tissue Specimen incubation. Site: Leg: Left Lower Extremity - [facility] [id number] 05:30:00 Test Item Value Reference Range Interpretation Comments AFB culture No growth Specimen isolate (test after 6 weeks InformationSp ecimen code = 543-9) of Source: Tissue Specimen incubation. Site: Leg: [facility] sfiqyil4552-14-27 05:30:00 Test Item Value Reference Range Interpretation Comments AFB culture No growth Specimen isolate (test after 6 weeks InformationSp ecimen code = 543-9) of Source: Tissue Specimen incubation. Site: Leg: Left Lower Extremity - [facility] fqfqrid8940-09-65 05:30:00 Test Item Value Reference Range Interpretation Comments AFB culture No growth Specimen isolate (test after 6 weeks InformationSp ecimen code = 543-9) of Source: Tissue Specimen incubation. Site: Leg: Left Lower Extremity - [facility] GLUCOSE (AUTOMATED)2022-07-31 22:28:25 Test Item Value Reference Range Interpretation Comments POCT GLU (test code = 1219542800) 116 mg/dL 70-110 H Lab Interpretation (test code = Abnormal 29348-8) [facility] GLUCOSE (AUTOMATED)2022-07-31 17:14:36 Test Item Value Reference Range Interpretation Comments POCT GLU (test code = 8981546933) 136 mg/dL 70-110 H Lab Interpretation (test code = Abnormal 13713-6) [facility] GLUCOSE (AUTOMATED)2022-07-31 01:47:10 Test Item Value Reference Range Interpretation Comments POCT GLU (test code = 9006674403) 141 mg/dL 70-110 H Lab Interpretation (test code = Abnormal 01387-6) [facility] GLUCOSE (AUTOMATED)2022-07-30 23:18:09 Test Item Value Reference Range Interpretation Comments POCT GLU (test code = 0510818020) 140 mg/dL 70-110 H Lab Interpretation (test code = Abnormal 56296-2) [facility] GLUCOSE (AUTOMATED)2022-07-30 18:43:38 Test Item Value Reference Range Interpretation Comments POCT GLU (test code = 9824419778) 165 mg/dL 70-110 H Lab Interpretation (test code = Abnormal 05862-2) [facility] GLUCOSE (AUTOMATED)2022-07-30 14:19:36 Test Item Value Reference Range Interpretation Comments POCT GLU (test code = 6288719215) 90 mg/dL 70-110 Lab Interpretation (test code = Normal 58181-3) [facility] GLUCOSE (AUTOMATED)2022-07-30 01:37:57 Test Item Value Reference Range Interpretation Comments POCT GLU (test code = 2124051989) 100 mg/dL 70-110 Lab Interpretation (test code = Normal 32618-3) [facility] GLUCOSE (AUTOMATED)2022-07-29 22:44:33 Test Item Value Reference Range Interpretation Comments POCT GLU (test code = 1884156210) 113 mg/dL 70-110 H Lab Interpretation (test code = Abnormal 85963-7) [facility] GLUCOSE (AUTOMATED)2022-07-29 18:36:00 Test Item Value Reference Range Interpretation Comments POCT GLU (test code = 3504626993) 108 mg/dL 70-110 Lab Interpretation (test code = Normal 55423-6) [facility] GLUCOSE (AUTOMATED)2022-07-29 13:47:37 Test Item Value Reference Range Interpretation Comments POCT GLU (test code = 9353540619) 91 mg/dL 70-110 Lab Interpretation (test code = Normal 30586-6) [facility] GLUCOSE (AUTOMATED)2022-07-29 01:19:16 Test Item Value Reference Range Interpretation Comments POCT GLU (test code = 2219784901) 143 mg/dL 70-110 H Lab Interpretation (test code = Abnormal 51142-9) [facility] GLUCOSE (AUTOMATED)2022-07-28 21:10:26 Test Item Value Reference Range Interpretation Comments POCT GLU (test code = 9985830235) 148 mg/dL 70-110 H Lab Interpretation (test code = Abnormal 66951-0) [facility] GLUCOSE (AUTOMATED)2022-07-28 17:13:13 Test Item Value Reference Range Interpretation Comments POCT GLU (test code = 2341806649) 199 mg/dL 70-110 H Lab Interpretation (test code = Abnormal 95652-7) [facility] GLUCOSE (AUTOMATED)2022-07-28 12:53:47 Test Item Value Reference Range Interpretation Comments POCT GLU (test code = 4236326629) 113 mg/dL 70-110 H Lab Interpretation (test code = Abnormal 73947-7) [facility] GLUCOSE (AUTOMATED)2022-07-28 08:02:41 Test Item Value Reference Range Interpretation Comments POCT GLU (test code = 9111752454) 126 mg/dL 70-110 H Lab Interpretation (test code = Abnormal 77135-7) [facility] [id number] 05:40:00 Test Item Value Reference Range Interpretation Comments Fungus culture No growth Specimen isolate (test after 4 weeks InformationSp ecimen code = 580-1) of Source: Tissue Specimen incubation. Site: Leg: Left [facility] [id number] 05:40:00 Test Item Value Reference Range Interpretation Comments Fungus culture No growth Specimen isolate (test after 4 weeks InformationSp ecimen code = 580-1) of Source: Tissue Specimen incubation. Site: Leg: Left Lower Extremity [facility] [id number] 05:40:00 Test Item Value Reference Range Interpretation Comments Fungus culture No growth Specimen isolate (test after 4 weeks InformationSp ecimen code = 580-1) of Source: Tissue Specimen incubation. Site: Leg: Left Lower Extremity [facility] [id number] 05:40:00 Test Item Value Reference Range Interpretation Comments Fungus culture No growth Specimen isolate (test after 4 weeks InformationSp ecimen code = 580-1) of Source: Tissue Specimen incubation. Site: Leg: Left [facility]. Metabolic Panel (58787)2022-07-19 03:26:53 Test Item Value Reference Range Interpretation Comments NA (test code = 140 mmol/L 135-145 6836791542) K (test code = 5.3 mmol/L 3.5-5.0 H 4788373893) CL (test code = 101 mmol/L 98-108 1746576621) CO2 TOTAL (test code = 27 mmol/L 23-31 6817437132) AGAP (test code = 12 2-16 4078217983) BUN (test code = 30 mg/dL 7-23 H 5782185011) GLUCOSE (test code = 189 mg/dL 70-110 H 5257692858) CREATININE (test code = 1.24 mg/dL 0.60-1.25 6812327535) TOTAL BILI (test code = 0.4 mg/dL 0.1-1.0 5962066536) CALCIUM (test code = 9.3 mg/dL 8.6-10.6 5772887363) T PROTEIN (test code = 8.0 g/dL 6.3-8.2 9487164725) ALBUMIN (test code = 4.1 g/dL 3.5-5.0 8940912551) ALK PHOS (test code = 107 U/L 34-122 9657772838) ALTv (test code = 43 U/L 5-50 1741-6) AST(SGOT) (test code = 38 U/L 13-40 5758610946) eGFR (test code = 60.5 mL/min/1.73m2 0634343779) MOE (test code = MOE) Association of [...] tests). Lab Interpretation Abnormal (test code = 25597-0) [facility] with [id number] 03:23:09 Test Item Value Reference Range Interpretation Comments WBC (test code = 6.48 See_Comment [Automated 6690-2) message] The sy stem [...] RDW-SD (test code = 49.0 fL 38.5-51.6 50941-0) RDW-CV (test code = 15.0 % 12.1-15.4 788-0) PLT (test code = 542 See_Comment H [Automated 777-3) message] The sy stem which generated this result transmitted reference range : 150 - 328 10*3/ ?L. The reference r maggi was not used to interpret this result as normal/abnormal . MPV (test code = 9.6 fL 9.8-13.0 L 67171-7) NRBC/100 WBC (test 0.0 See_Comment [Automat ed code = 2625111418) message] The system which generated this result transmitted reference range : 0.0 - 10.0 /100 WBCs. The refer ence range was not u sed to interpret th is result as normal/abnormal . NRBC x10^3 (test code See_Comment [Auto mated = 4379548870) message] The s ystem which generated this result transmitted reference range : 10*3/?L. The reference range was not used to interpret this result as normal/abnormal . GRAN MAT (NEUT) % 60.7 % (test code = 770-8) IMM GRAN % (test code 0.50 % = 8908259073) LYMPH % (test code = 28.2 % 736-9) MONO % (test code = 6.9 % 5905-5) EOS % (test code = 2.5 % 713-8) BASO % (test code = 1.2 % 706-2) GRAN MAT x10^3(ANC) 3.93 10*3/uL 1.99-6.95 (test code = 9714776298) IMM GRAN x10^3 (test 0.03 10*3/uL 0.00-0.06 code = 0350000695) LYMPH x10^3 (test code 1.83 10*3/uL 1.09-3.23 = 731-0) MONO x10^3 (test code 0.45 10*3/uL 0.36-1.02 = 742-7) EOS x10^3 (test code = 0.16 10*3/uL 0.06-0.53 711-2) BASO x10^3 (test code 0.08 10*3/uL 0.01-0.09 = 704-7) Lab Interpretation Abnormal (test code = 04267-9) [facility] [id number] 16:22:00 Test Item Value Reference Range Interpretation Comments POC glucose (test code = 245 mg/dL 65-100 H Ope rator Name: Marilin 71745-5) GarzaDevice ID: [id number] Lab Interpretation (test Abnormal code = 69301-5) [facility] ikeyejj2172-05-67 16:22:00 Test Item Value Reference Range Interpretation Comments POC glucose (test code = 245 mg/dL 65-100 H Ope rator Name: Marilin 98109-8) GarzaDevice ID: [id number] Lab Interpretation (test Abnormal code = 89002-5) [facility] [id number] 16:22:00 Test Item Value Reference Range Interpretation Comments POC glucose (test code = 245 mg/dL 65-100 H Ope rator Name: Marilin 90165-3) GarzaDevice ID: [id number] Lab Interpretation (test Abnormal code = 79037-6) [facility] [id number] 16:22:00 Test Item Value Reference Range Interpretation Comments POC glucose (test code = 245 mg/dL 65-100 H Ope rator Name: Marilin 35529-3) GarzaDevice ID: [id number] Lab Interpretation (test Abnormal code = 63624-6) [facility] [id number] 19:17:00 Test Item Value Reference Range Interpretation Comments IMP PCR (test NOT DETECTED Specimen Infor mationSpecimen code = Source: [facility] Site: 78478-7) Tissue [id number] 07 OXA-48 PCR NOT DETECTED (test code = 8006) [facility] [id number] 19:17:00 Test Item Value Reference Range Interpretation Comments IMP PCR (test NOT DETECTED Specimen Infor mationSpecimen code = Source: [facility] Site: 16457-6) Tissue A6908067 07 OXA-48 PCR NOT DETECTED (test code = 8006) [facility] [id number] 19:17:00 Test Item Value Reference Range Interpretation Comments IMP PCR (test NOT DETECTED Specimen Infor mationSpecimen code = Source: [facility] Site: 54117-4) Tissue [id number] OXA-[id number] PCR NOT DETECTED (test code = 8006) [facility] [id number] 19:17:00 Test Item Value Reference Range Interpretation Comments IMP PCR (test NOT DETECTED Specimen Infor mationSpecimen code = Source: [facility] Site: 10834-0) Tissue [id number] OXA-48 PCR NOT DETECTED (test code = 8006) [facility] [id number] 13:15:00 Test Item Value Reference Range Interpretation Comments Anaerobic No anaerobic Specimen culture isolate organisms InformationS pecimen (test code = isolated. Source: TissueS akil[facility]imen 28588-6) Site: Leg: Left Lower Extremity - [facility] [id number] 13:15:00 Test Item Value Reference Range Interpretation Comments Anaerobic No anaerobic Specimen culture isolate organisms InformationS pecimen (test code = isolated. Source: TissueS ak[place]imen 23892-9) Site: Leg: Left Lower Extremity - [facility] [id number] 13:15:00 Test Item Value Reference Range Interpretation Comments Anaerobic No anaerobic Specimen culture isolate organisms InformationS pecimen (test code = isolated. Source: TissueS pecimen 22398-6) Site: Leg: Left Lower Extremity - [facility] [id number] 13:15:00 Test Item Value Reference Range Interpretation Comments Anaerobic No anaerobic Specimen culture isolate organisms InformationS pecimen (test code = isolated. Source: TissueS akilahimen 49927-6) Site: Leg: Left Lower Extremity [facility] [id number] 14:49:00 Test Item Value Reference Range Interpretation Comments AFB stain No acid fast Specimen (test code = bacilli (AFB) InformationSpe cimen 676-7) seen. [facility] Site: Leg: Left Lower Extremity - [facility] [id number] 14:49:00 Test Item Value Reference Range Interpretation Comments AFB stain No acid fast Specimen (test code = bacilli (AFB) InformationSpe cimen 676-7) seen. Source: [facility] Site: Leg: [facility] Ext[facility] [id number] 14:49:00 Test Item Value Reference Range Interpretation Comments AFB stain No acid fast Specimen (test code = bacilli (AFB) InformationSpe cimen 676-7) seen. Source: TissueS akilahimen Site: Leg: Left Lower Extremity [facility] [id number] 14:49:00 Test Item Value Reference Range Interpretation Comments AFB stain No acid fast Specimen (test code = bacilli (AFB) InformationSpe cimen 676-7) seen. Source: TissueS pecimen Site: Leg: Left Lower Extremity - [facility] [id number] 18:08:00 Test Item Value Reference Range Interpretation Comments Fungus smear No fungi Specimen (test code = observed. InformationSpec imen Source: 1443) TissueSpecimen Site: Leg: Left Lower Extr emity - [facility] [id number] 18:08:00 Test Item Value Reference Range Interpretation Comments Fungus smear No fungi Specimen (test code = observed. InformationSpec imen Source: 1443) TissueSpecimen Site: Leg: Left Lower Extr emity - [facility] [id number] 18:08:00 Test Item Value Reference Range Interpretation Comments Fungus smear No fungi Specimen (test code = observed. InformationSpec imen Source: 1443) TissueSpecimen Site: Leg: Left Lower Extr emity - [facility] [id number] 18:08:00 Test Item Value Reference Range Interpretation Comments Fungus smear No fungi Specimen (test code = observed. InformationSpec imen Source: 1443) TissueSpecimen Site: Leg: Left Lower Extr emity - [facility] [id number] 17:14:00 Test Item Value Reference Range Interpretation Comments Gram stain Few Gram Specimen isolate (test negative rods InformationSp ecimen code = 1469) Source: TissueS [facility] Site: Leg: Left Lower Extremity - Cul ture [facility] [id number] 17:14:00 Test Item Value Reference Range Interpretation Comments Gram stain Few Gram Specimen isolate (test negative rods InformationSp ecimen code = 1469) Source: [facility] Site: Leg: Left Lower Extremity - Cul [facility]ure [facility] [id number] 17:14:00 Test Item Value Reference Range Interpretation Comments Gram stain Few Gram Specimen isolate (test negative rods InformationSp ecimen code = 1469) [facility] Site: Leg: Left Lower Extremity - [facility] [id number] 17:14:00 Test Item Value Reference Range Interpretation Comments Gram stain Few Gram Specimen isolate (test negative rods InformationSp ecimen code = 1469) Source: TissueS [facility] Site: Leg: Left Lower Extremity - Cul [facility] pathology [id number] 22:46:05 Test Item Value Reference Range Interpretation Comments Case number (test code = [id number]) Surgical pathology See link below for report (test code = PDF Lab Report 2255) Result status (test code This is Final Report = [id number]) [address] [id number] 22:46:05 Test Item Value Reference Range Interpretation Comments Case number (test code = [id number]) Surgical pathology See link below for report (test code = PDF Lab Report 2255) Result status (test code This is Final Report = [id number]) [address] [id number] 22:46:05 Test Item Value Reference Range Interpretation Comments Case number (test code = [id number]) Surgical pathology See link below for report (test code = PDF Lab Report 225) Result status (test code This is Final Report = [id number]) [address] [id number] 22:46:05 Test Item Value Reference Range Interpretation Comments Case number (test code = [id number]) Surgical pathology See link below for report (test code = PDF Lab Report 225) Result status (test code This is Final Report = [id number]) [address] Echocardiogram Complete, (w Contrast, Strain and 3D if needed)2022-05-10 21:23:23 Test Item Value Reference Interpretation Comments Range Ao Root Diameter 3.34 cm (test code = 0827576200) AoV Area, Vmax (test 3.02 cm2 >=1.5 code = 7425720151) AoV Area, VTI (test 3.07 cm2 code = 5726526250) AoV Mean PG (test 4.26 mmHg code = 8014643604) AoV Peak PG (test 6.38 mmHg code = 5128757580) AoV Vmax (test code 1.42 m/s = 8858471164) AoV VTI (test code = 0.26 m 5483864736) BSA Rashid (test code 2.11 m2 = 0370896580) BSA (test code = 2.02 m2 0386069005) IVS,d (test code = 0.84 cm 0.6-9 5001092835) IVS/LVPW,2D (test 0.98 code = 1780621725) Left Atrium 3.49 cm Dimension Anterior (test code = 2446067178) LV,d (test code = 4.74 cm 1739272955) LV EF,2D (test code 64.34 % = 0637505490) LV,s (test code = 3.36 cm 9815978235) LVOT area (test code 3.53 cm2 = 9970970146) LVOT Diam,S (test 2.12 cm code = 3275095449) LVOT Vmax (test code 1.13 m/s = 9675853943) LVOT VTI (test code 0.21 m = 3401750281) LVPWD,d (test code = 0.85 cm 0.60-1.19 2775882419) MV E A ratio (test 0.86 code = 8528395049) AoV area i VTI BSA 1.52 cm2/m2 >=0.85 Gila (test code = 8997108608) BMI (test code = 31.32 kg/m2 9163214061) E wave decelartion 89.56 See_Comment A [Automat ed time (test code = message] T he 4557084567) system which generated this result transmitted reference range : 200 msec. The reference range was not used to interpret this result as normal/abnormal . MV Peak A Quirino (test 0.88 m/s code = 3129604908) MV valve area p 1/2 8.47 cm2 method (test code = 4327495349) MV Peak E Quirino (test 0.75 m/s code = 5094230167) MV stenosis pressure 25.97 ms 1/2 time (test code = 5211158021) LVOT stroke volume 0.74 ml (test code = 5189031156) AV LVOT peak 4.69 mmHg gradient (test code = 8610935223) Ao Root Diameter 3.34 cm (test code = 7741604964) MV mean gradient 1.92 mmHg (test code = 2058638229) LV SYS VOL (test 46.16 ml 21-61 code = 9137822266) LV ANDERSON VOL (test 104.46 ml 62-150 code = 0545670123) LA area s A4C (test 17.60 cm2 code = 9468647907) LV SI Teich 2D (test 28.83 ml/m2 code = 8973768200) LV SV Teich 2D (test 58.30 ml code = 3671833582) LV Vol s Teich PSAX 46.16 ml (test code = 9015732649) LVOT CI (test code = 3.53 l/min/m2 2641251177) LVOT CO (test code = 7.14 l/min 6545327430) LVOT HR for LVOT CO 98.89 bpm (test code = 9383406806) LVOT SI (test code = 35.72 ml/m2 3199809336) MR peak grad (test 3.00 mmHg code = 1432673483) MV Vmax (test code = 0.87 m 4559901236) MV VTI Tips (test 0.14 m code = 2804097101) BSA Haycock (test 2.10 m2 code = 8476621091) AoV Vmn (test code = 0.97 m/s 2579526324) IVS s 2D (test code 1.17 cm = 5304864481) LV FS Teich 2D (test 29.09 code = 8891128460) MV AE ratio (test 1.17 code = 9476355774) LV FS Cube 2D (test 29.09 code = 4206108802) LVOT Vmn (test code 0.75 = 9786936518) Pt Size (test code = 170.18 6988942745) Pt Wt (test code = 90.72 0167601921) Aov area Vmn (test 3.05 cm2 code = 1764133805) LVOT mean grad (test 2.57 mmHg code = 2225865747) 85 of MPHR (test 140.25 code = 3311606151) AoV area I VMN bsa 1.51 cm2/m2 (test code = 8761397552) Calc MPHR (test code 165.01 bpm = 8769623761) IVS pct thck PLAX 39.76 % (test code = 4363298426) LV SI Cube 2D (test 33.91 ml/m2 code = 7277818761) LV SV Cube 2D (test 68.57 ml code = 4013276695) LV vol d cube 2D 106.56 ml (test code = 4862336579) LV vol s cube 2D 38.00 ml (test code = 6725684660) LVPW pct thck PLAX 35.24 % (test code = 4680265672) LVPW s PLAX (test 1.16 cm code = 7697691453) MV Decel slope (test 8.38 m/s2 code = 9861285466) Pred Exer Dur R1 9.48 (test code = 9543153001) Pred METS R1 (test 9.75 code = 8124674911) LA Vol MOD A4C (test 46.56 ml code = 9835349696) Velocity Ratio 0.80 m/s (V1/V2) (test code = 4689) EF (test code = 56 % 8363747433) E/A ratio (test code 0.85 = 2954456729) LVOT VTI (CM) (test 21.00 cm code = 3256985090) MOE (test code = MOE) Left Ventricle: [...] normal. Lab Interpretation Abnormal (test code = 33502-2) [facility], (w Contrast, Strain and 3D if needed)2022-05-10 21:23:23 Test Item Value Reference Interpretation Comments Range Ao Root Diameter 3.34 cm (test code = 2947100139) AoV Area, Vmax (test 3.02 cm2 >=1.5 code = 2279072480) AoV Area, VTI (test 3.07 cm2 code = 1484431033) AoV Mean PG (test 4.26 mmHg code = 2696592177) AoV Peak PG (test 6.38 mmHg code = 8705915426) AoV Vmax (test code 1.42 m/s = 1740048099) AoV VTI (test code = 0.26 m 0062013294) BSA Rashid (test code 2.11 m2 = 4212152309) BSA (test code = 2.02 m2 8258536539) IVS,d (test code = 0.84 cm 0.6-4 3193712311) IVS/LVPW,2D (test 0.98 code = 0571092018) Left Atrium 3.49 cm Dimension Anterior (test code = 9393562459) LV,d (test code = 4.74 cm 3141140814) LV EF,2D (test code 64.34 % = 5847883904) LV,s (test code = 3.36 cm 9354394261) LVOT area (test code 3.53 cm2 = 3285204847) LVOT Diam,S (test 2.12 cm code = 6731455373) LVOT Vmax (test code 1.13 m/s = 6958704743) LVOT VTI (test code 0.21 m = 9994546025) LVPWD,d (test code = 0.85 cm 0.60-1.19 1105401685) MV E A ratio (test 0.86 code = 7281339214) AoV area i VTI BSA 1.52 cm2/m2 >=0.85 Jean Claude (test code = 8904999637) BMI (test code = 31.32 kg/m2 7238494006) E wave decelartion 89.56 See_Comment A [Automat ed time (test code = message] T he 3105383113) system which generated this result transmitted reference range : 200 msec. The reference range was not used to interpret this result as normal/abnormal . MV Peak A Quirino (test 0.88 m/s code = 3159672178) MV valve area p 1/2 8.47 cm2 method (test code = 3657609632) MV Peak E Quirino (test 0.75 m/s code = 7128558270) MV stenosis pressure 25.97 ms 1/2 time (test code = 4417208642) LVOT stroke volume 0.74 ml (test code = 3483344450) AV LVOT peak 4.69 mmHg gradient (test code = 3408376839) Ao Root Diameter 3.34 cm (test code = 0240800170) MV mean gradient 1.92 mmHg (test code = 3650039293) LV SYS VOL (test 46.16 ml 21-61 code = 1995959220) LV ANDERSON VOL (test 104.46 ml 62-150 code = 2085245889) LA area s A4C (test 17.60 cm2 code = 8371703303) LV SI Teich 2D (test 28.83 ml/m2 code = 1617566415) LV SV Teich 2D (test 58.30 ml code = 0424013296) LV Vol s Teich PSAX 46.16 ml (test code = 8661420140) LVOT CI (test code = 3.53 l/min/m2 8401193970) LVOT CO (test code = 7.14 l/min 9531623164) LVOT HR for LVOT CO 98.89 bpm (test code = 7336820974) LVOT SI (test code = 35.72 ml/m2 8239026713) MR peak grad (test 3.00 mmHg code = 4729626184) MV Vmax (test code = 0.87 m 9979485953) MV VTI Tips (test 0.14 m code = 8842973043) BSA Haycock (test 2.10 m2 code = 7765549521) AoV Vmn (test code = 0.97 m/s 8697128548) IVS s 2D (test code 1.17 cm = 0791729118) LV FS Teich 2D (test 29.09 code = 2768282610) MV AE ratio (test 1.17 code = 7931755983) LV FS Cube 2D (test 29.09 code = 3273239424) LVOT Vmn (test code 0.75 = 1187520713) Pt Size (test code = 170.18 9628759346) Pt Wt (test code = 90.72 9017708331) Aov area Vmn (test 3.05 cm2 code = 7849737380) LVOT mean grad (test 2.57 mmHg code = 5838267371) 85 of MPHR (test 140.25 code = 6822871121) AoV area I VMN bsa 1.51 cm2/m2 (test code = 9260991199) Calc MPHR (test code 165.01 bpm = 1974993564) IVS pct thck PLAX 39.76 % (test code = 9721894787) LV SI Cube 2D (test 33.91 ml/m2 code = 6733533052) LV SV Cube 2D (test 68.57 ml code = 8429832882) LV vol d cube 2D 106.56 ml (test code = 1156384458) LV vol s cube 2D 38.00 ml (test code = 9613947279) LVPW pct thck PLAX 35.24 % (test code = 7774547988) LVPW s PLAX (test 1.16 cm code = 8327960644) MV Decel slope (test 8.38 m/s2 code = 9661011588) Pred Exer Dur R1 9.48 (test code = 2519487107) Pred METS R1 (test 9.75 code = 4096784877) LA Vol MOD A4C (test 46.56 ml code = 9687473360) Velocity Ratio 0.80 m/s (V1/V2) (test code = 4689) EF (test code = 56 % 0777392316) E/A ratio (test code 0.85 = 6293148145) LVOT VTI (CM) (test 21.00 cm code = 1192370866) MOE (test code = MOE) Left Ventricle: [...] normal. Lab Interpretation Abnormal (test code = 81830-7) [facility] [Presence] in Respiratory specimen by LEILANI with probe [id number] 00:11:33 Test Item Value Reference Range Interpretation Comments SARS-CoV-2 (COVID-19) RNA Not detected [Presence] in Respiratory specimen by LEILANI with probe detection (test code = 65911-5) Whether patient is employed in a Unknown healthcare setting (test code = 57477-1) Whether the patient has symptoms Unknown related to condition of interest (test code = 16727-2) Whether the patient was Unknown hospitalized for condition of interest (test code = 66971-5) Whether the patient was admitted Unknown to intensive care unit (ICU) for condition of interest (test code = 60527-8) Whether patient resides in a Unknown congregate care setting (test code = 23983-6) status (test code = Unknown 37372-6) Date and time of symptom onset Unknown (test code = 84523-3) [facility]SE[facility] [id number] 20:52:15 Test Item Value Reference Range Interpretation Comments BSA (test code = 2.03 m2 8334983251) BSA Rashid (test code 2.12 m2 = 0115724692) BSA Haycock (test 2.11 m2 code = 7818301691) Pred METS R1 (test 9.76 code = 5406643903) Pred Exer Dur R1 9.48 (test code = 9323108998) Calc MPHR (test 165.06 bpm code = 2840161562) 85 of MPHR (test 140.30 code = 4190354704) Pt Wt (test code = 91.17 5672720784) Pt Size (test code 170.18 = 2441607428) BMI (test code = 31.48 kg/m2 9931745867) MOE (test code = MOE) Left Ventricle: [...] study. The probe was inserted by the foreign exchange position clerk. There was no probe insertion difficulty. Anesthesia was given. Refer to anesthesia note. The patient tolerated the procedure well and recovered without any complications.Prior StudyThere were no significant changes noted when compared to the prior TTE study. [facility] [id number] 20:52:15 Test Item Value Reference Range Interpretation Comments BSA (test code = 2.03 m2 3525876730) BSA Rashid (test code 2.12 m2 = 7643507742) BSA Haycock (test 2.11 m2 code = 1920778029) Pred METS R1 (test 9.76 code = 1958082236) Pred Exer Dur R1 9.48 (test code = 9166165837) Calc MPHR (test 165.06 bpm code = 4350550201) 85 of MPHR (test 140.30 code = 6997981106) Pt Wt (test code = 91.17 8730919785) Pt Size (test code 170.18 = 1863711920) BMI (test code = 31.48 kg/m2 3995327348) MOE (test code = MOE) Left Ventricle: [...] study. The probe was inserted by the foreign exchange position clerk. There was no probe insertion difficulty. Anesthesia was given. Refer to anesthesia note. The patient tolerated the procedure well and recovered without any complications.Prior StudyThere were no significant changes noted when compared to the prior TTE study. [facility] [place] [place] myocardial [id number] 21:20:55 Test Item Value Reference Range Interpretation Comments Target HR (test 166.00 bpm code = 6063312151) Resting HR (test 99 BPM code = 6115398505) Resting BP (test 112/70 mmHg code = 3517105285) O2 sat rest (test 99 % code = 8440367588) Post Peak HR (test 113 bpm code = 3286386357) Percent HR (test 68.07 % code = 9309233905) Post Peak BP (test 112/70 mmHg code = 3609132802) O2 sat peak (test 98 % code = 9528562282) Nuc Stress EF (test 63 % code = 4679526457) Radiology Study observation (narrative) (test code = 52065-1) MOE (test code = MOE) Conclusion: Abnormal [...] The resting administration time was at 10:07 CHERRY SORTER on 04/17/2022. Resting images obtained at 11:22 CHERRY SORTER. Images performed at stress after an injection of 30.5 mCi. The stress administration time was at 12:20 CHERRY SORTER on 04/17/2022. Stress images obtained at 13:36 CHERRY SORTER.Nuclear Study QualityA perfusion 1-day rest/stress protocol was [...] Scores: SDS Score: N/A Percentage Abnormal: N/A [facility] [place], [place] myocardial [id number] 21:20:55 Test Item Value Reference Range Interpretation Comments Target HR (test 166.00 bpm code = 1734280105) Resting HR (test 99 BPM code = 3406568888) Resting BP (test 112/70 mmHg code = 7814846252) O2 sat rest (test 99 % code = 6607951357) Post Peak HR (test 113 bpm code = 2564256768) Percent HR (test 68.07 % code = 8523016092) Post Peak BP (test 112/70 mmHg code = 2273574757) O2 sat peak (test 98 % code = 2192046827) Nuc Stress EF (test 63 % code = 2316855569) Radiology Study observation (narrative) (test code = 47505-7) MOE (test code = MOE) Conclusion: Abnormal [...] The resting administration time was at 10:07 CHERRY SORTER on 04/17/2022. Resting images obtained at 11:22 CHERRY SORTER. Images performed at stress after an injection of 30.5 mCi. The stress administration time was at 12:20 CHERRY SORTER on 04/17/2022. Stress images obtained at 13:36 CHERRY SORTER.Nuclear Study QualityA perfusion 1-day rest/stress protocol was [...] [facility] stress [id number] 21:15:16 Test Item Value Reference Range Interpretation Comments Resting HR (test code 99 = 2388338772) Resting BP (test code 112&70 = 1525588252) Peak MET Achieved 1.0 (test code = 8887892301) Protocol Name (test LEXISCAN code = 6469775147) Time in Exercise Phase 00:00:53 (test code = 0009025712) Max Systolic BP (test 112 code = 7386517812) Max Diastolic BP (test 70 code = 2551373392) Max Heart Rate (test 113 code = 2970487586) Max Predicted Heart 166 Rate (test code = 4152410102) Target HR Formula (220 - Age)*100% (test code = 8603121007) Test Indication (test code = 9724996198) Arrhy During Ex (test none code = 6347446456) ECG Interp Before EX atrial fibrillation (test code = 4455887503) ECG Interp During Ex NONSPECIFIC (test code = 3528263796) Ex Summary Comment Myoview to follow (test code = 8419579478) Chest Pain Statement none (test code = 0191227148) Overall HR Response to PHARMACOLOGIC STRESS Exercise (test code = 8993491199) Overall BP Response To normal resting BP - Exercise (test code = appropriate response 3826792351) Reason for Termination Protocol completed (test code = 1759506987) Stress Test Impression MYOVIEW TO (test code = FOLLOW--Electronically 0915377895) Signed By Jaspreet Cannon MD ([id number]) on 04/18/2022 3:15:13 PM [facility] stress [id number] 21:15:16 Test Item Value Reference Range Interpretation Comments Resting HR (test code 99 = 9507925608) Resting BP (test code 112&70 = 8724766293) Peak MET Achieved 1.0 (test code = 4745361650) Protocol Name (test LEXISCAN code = 1811789793) Time in Exercise Phase 00:00:53 (test code = 7266369819) Max Systolic BP (test 112 code = 0411677120) Max Diastolic BP (test 70 code = 2395989775) Max Heart Rate (test 113 code = 4006127571) Max Predicted Heart 166 Rate (test code = 9811309578) Target HR Formula (220 - Age)*100% (test code = 1439270947) Test Indication (test code = 9226140880) Arrhy During Ex (test none code = 2177453345) ECG Interp Before EX atrial fibrillation (test code = 5103603925) ECG Interp During Ex NONSPECIFIC (test code = 6209337973) Ex Summary Comment Myoview to follow (test code = 3523691461) Chest Pain Statement none (test code = 4191967211) Overall HR Response to PHARMACOLOGIC STRESS Exercise (test code = 5343978116) Overall BP Response To normal resting BP - Exercise (test code = appropriate response 2962208725) Reason for Termination Protocol completed (test code = 3645063917) Stress Test Impression MYOVIEW TO (test code = FOLLOW--Electronically 5839571947) Signed By Jaspreet Cannon MD ([id number]) on 04/18/2022 3:15:13 PM [facility], (w Contrast, Strain and 3D if needed)2022-04-14 21:07:42 Test Item Value Reference Interpretation Comments Range EF (test code = 59 % 52-72 9393107876) LV EF,BP (test code 57.09 % = 0953694780) IVS,d (test code = 1.13 cm 0.6-1 A 2810605743) IVS s 2D (test code 1.32 cm = 2702520378) LVPWD,d (test code 1.09 cm 0.60-1.19 = 5564013928) LVPW s PLAX (test 1.37 cm code = 2209033765) LV,s (test code = 3.04 cm 7168549501) LVOT Diam,S (test 2.09 cm code = 5117719923) LV ANDERSON VOL (test 88.75 ml 62-150 code = 4672452815) LV SYS VOL (test 36.02 ml 21-61 code = 5669569596) LV Vol,d A2C (test 82.11 mL code = 3895647628) LV Vol,s A2C (test 34.60 mL code = 5581651722) LV Vol,d A4C (test 81.73 ml code = 2401664473) LV Vol,s A4C (test 37.26 ml code = 9036915985) MV Peak E Quirino (test 0.89 m/s code = 1840351646) MV Peak A Quirino (test 0.25 m/s code = 9486394498) E/A ratio (test 3.56 <=0.8 A code = 0862566897) E wave decelartion 177.02 See_Comment A [Automat ed time (test code = message] T he 6480660338) system which generated this result transmitted reference range: 200 msec. The reference range was not used to interpret this result as normal/abnormal . LV Systolic Volume 17.13 mL/m2 11-31 Index (test code = 2705706872) LV Diastolic Volume 40.65 mL/m2 34-74 Index (test code = 8938426958) LV,d (test code = 4.42 cm 7368896937) IVS/LVPW,2D (test 1.03 code = 6367307750) LV EF,2D (test code 67.66 % = 0515765342) LV FS Cube 2D (test 31.36 code = 5025077180) LV FS Teich 2D 31.36 (test code = 6380854105) LV SI Teich 2D 26.07 ml/m2 (test code = 7041316568) LV SV Teich 2D 52.72 ml (test code = 7588043648) LV Vol s Teich PSAX 36.02 ml (test code = 9433103214) LVOT stroke volume 0.48 cm3 (test code = 9353501121) Left Atrium 3.37 cm <=4 Dimension Anterior (test code = 2929852664) LA Vol MOD A4C 44.03 ml (test code = 0545724993) LA area s A4C (test 16.42 cm2 code = 4244700957) LVOT area (test 3.43 cm2 code = 3058687602) LVOT Vmax (test 0.86 m/s code = 7011655890) AoV Mean PG (test 3.31 See_Comment [Automate d code = 2637069903) message] The system which generated this result transmitted reference range: 20 mmHg. The reference range was not used to interpret this result as normal/abnormal . AoV Peak PG (test 4.75 mmHg code = 6032491905) AV LVOT peak 2.89 mmHg gradient (test code = 5466861955) AoV area i VTI BSA 1.33 cm2/m2 >=0.85 Jean Claude (test code = 5926683606) AoV Area, Vmax 2.67 cm2 >=1.5 (test code = 4382541814) LVOT VTI (CM) (test 14.00 cm code = 2125487077) AoV Vmax (test code 1.11 m/s = 5328619453) AoV Vmn (test code 0.88 m/s = 4830169555) AoV Area, VTI (test 2.69 cm2 code = 6964929863) LVOT CO (test code 5.03 l/min = 6835941378) LVOT CI (test code 2.49 l/min/m2 = 5623005514) LVOT HR for LVOT CO 113.01 bpm (test code = 0481312865) LVOT SI (test code 22.01 ml/m2 = 8448746963) Velocity Ratio 0.77 m/s (V1/V2) (test code = 4689) MV stenosis 41.13 ms <=150 pressure 1/2 time (test code = 0211308470) MV E A ratio (test 6.25 code = 7851818373) MV valve area p 1/2 5.35 cm2 method (test code = 2258325016) E prime lat (test 0.04 code = 0480742839) E sherry sept (test 0.03 code = 6098369505) RVOT Vmax (test 0.87 m/s code = 0105094915) PV Pk Grad (test 2.43 See_Comment [Automated code = 9563647948) message] The system which generated this result transmitted reference range: 36 mmHg. The reference range was not used to interpret this result as normal/abnormal . RVOT pk grad (test 3.02 mmHg code = 3901655069) PV VMAX (test code 0.78 m/s <=3 = 3584781936) Ao Root Diameter 2.77 cm <=3.99 (test code = 7416973242) Ao Root Diameter 2.77 cm (test code = 2658185705) Ascending aorta 2.95 cm (test code = 5595607235) BSA (test code = 2.02 m2 8799854462) BSA Rashid (test code 2.11 m2 = 1872387542) BSA Radha (test 2.10 m2 code = 2337385734) Pred METS R1 (test 9.76 code = 2612605248) Pred Exer Dur R1 9.49 (test code = 7113952405) MV Decel slope 5.02 m/s2 (test code = 1882717227) LVPW pct thck PLAX 25.29 % (test code = 3226950499) LV vol s cube 2D 27.97 ml (test code = 2572932059) LV vol d cube 2D 86.49 ml (test code = 9571087766) LV SV Cube 2D (test 58.52 ml code = 9350589500) LV SI Cube 2D (test 28.94 ml/m2 code = 2139730774) IVS pct thck PLAX 16.96 % (test code = 7115556127) Calc MPHR (test 165.08 bpm code = 1400158657) AoV area I VMN bsa 1.20 cm2/m2 (test code = 8479695021) 85 of MPHR (test 140.32 code = 1901107315) RVOT VTI (test code 0.14 m = 6576414528) RVOT Vmn (test code 0.59 m/s = 0583884207) RVOT mean grad 1.54 mmHg (test code = 4123261981) LVOT mean grad 1.67 mmHg (test code = 6899522564) Aov area Vmn (test 2.42 cm2 code = 0475150454) Pt Wt (test code = 90.72 4274915308) Pt Size (test code 170.18 = 2789372620) MV AE ratio (test 0.16 code = 3364016617) LVOT Vmn (test code 0.61 = 8671954595) PV Vmn (test code = 17.84 m/s 7820727500) LV Vol Index s 41.57 ml/m2 bpmod BSA Gila (test code = 8555461866) LV SI MOD BP BSA 23.73 ml/m2 Gila (test code = 7644130861) BMI (test code = 31.32 kg/m2 5436960606) LV Vol,s BP (test 36.07 nl code = 0143833521) LV Vol,d BP (test 84.05 ml code = 4941961913) LV SV,BP (test code 47.99 % = 4646487939) LV SV,A4C (test 44.47 % code = 9768185358) LV SV,A2C (test 47.51 % code = 1334422854) [place],s A4C 6.78 cm (test code = 2793672957) [place],s A2C 6.94 cm (test code = 4391161968) [place],d A4C 7.48 cm (test code = 9305472088) [place],d A2C 7.91 cm (test code = 4961013491) LV EF,A4C (test 54.41 % code = 6606255866) LV EF,A2C (test 57.86 % code = 2436544165) AoV VTI (test code 0.16 m = 8753671247) LVOT VTI (test code 0.14 m = 9521397381) MOE (test code = MOE) Left Ventricle: [...] status. Lab Interpretation Abnormal (test code = 21616-1) [facility] (w Contrast, Strain and 3D if needed)2022-04-14 21:07:42 Test Item Value Reference Interpretation Comments Range EF (test code = 59 % 52-72 2301753057) LV EF,BP (test code 57.09 % = 6251269513) IVS,d (test code = 1.13 cm 0.6-1 A 1712979375) IVS s 2D (test code 1.32 cm = 8635334465) LVPWD,d (test code 1.09 cm 0.60-1.19 = 4009413915) LVPW s PLAX (test 1.37 cm code = 4189168027) LV,s (test code = 3.04 cm 6515648248) LVOT Diam,S (test 2.09 cm code = 0356090457) LV ANDERSON VOL (test 88.75 ml 62-150 code = 7731195241) LV SYS VOL (test 36.02 ml 21-61 code = 5451173068) LV Vol,d A2C (test 82.11 mL code = 5122027958) LV Vol,s A2C (test 34.60 mL code = 3845765956) LV Vol,d A4C (test 81.73 ml code = 1731642745) LV Vol,s A4C (test 37.26 ml code = 4625817894) MV Peak E Quirino (test 0.89 m/s code = 3788128392) MV Peak A Quirino (test 0.25 m/s code = 5611003297) E/A ratio (test 3.56 <=0.8 A code = 5960311250) E wave decelartion 177.02 See_Comment A [Automat ed time (test code = message] T he 3172338397) system which generated this result transmitted reference range: 200 msec. The reference range was not used to interpret this result as normal/abnormal . LV Systolic Volume 17.13 mL/m2 11-31 Index (test code = 1739008750) LV Diastolic Volume 40.65 mL/m2 34-74 Index (test code = 4579826430) LV,d (test code = 4.42 cm 1502051990) IVS/LVPW,2D (test 1.03 code = 1663077787) LV EF,2D (test code 67.66 % = 8565004782) LV FS Cube 2D (test 31.36 code = 4442050067) LV FS Teich 2D 31.36 (test code = 6689624136) LV SI Teich 2D 26.07 ml/m2 (test code = 9697109305) LV SV Teich 2D 52.72 ml (test code = 2723473233) LV Vol s Teich PSAX 36.02 ml (test code = 1792084281) LVOT stroke volume 0.48 cm3 (test code = 1340979500) Left Atrium 3.37 cm <=4 Dimension Anterior (test code = 3423728690) LA Vol MOD A4C 44.03 ml (test code = 1704876114) LA area s A4C (test 16.42 cm2 code = 4117070843) LVOT area (test 3.43 cm2 code = 1645912059) LVOT Vmax (test 0.86 m/s code = 3992895440) AoV Mean PG (test 3.31 See_Comment [Automate d code = 4707524386) message] The system which generated this result transmitted reference range: 20 mmHg. The reference range was not used to interpret this result as normal/abnormal . AoV Peak PG (test 4.75 mmHg code = 4886354828) AV LVOT peak 2.89 mmHg gradient (test code = 8560399534) AoV area i VTI BSA 1.33 cm2/m2 >=0.85 Gila (test code = 8311905245) AoV Area, Vmax 2.67 cm2 >=1.5 (test code = 8751084165) LVOT VTI (CM) (test 14.00 cm code = 5420173494) AoV Vmax (test code 1.11 m/s = 3821173666) AoV Vmn (test code 0.88 m/s = 6866952203) AoV Area, VTI (test 2.69 cm2 code = 5467762981) LVOT CO (test code 5.03 l/min = 1853533485) LVOT CI (test code 2.49 l/min/m2 = 4054725024) LVOT HR for LVOT CO 113.01 bpm (test code = 3144558370) LVOT SI (test code 22.01 ml/m2 = 7793638655) Velocity Ratio 0.77 m/s (V1/V2) (test code = 4689) MV stenosis 41.13 ms <=150 pressure 1/2 time (test code = 8203431096) MV E A ratio (test 6.25 code = 0955068253) MV valve area p 1/2 5.35 cm2 method (test code = 2204841019) E prime lat (test 0.04 code = 6670371512) E prime sept (test 0.03 code = 7556788587) RVOT Vmax (test 0.87 m/s code = 2811260799) PV Pk Grad (test 2.43 See_Comment [Automated code = 7928916296) message] The system which generated this result transmitted reference range: 36 mmHg. The reference range was not used to interpret this result as normal/abnormal . RVOT pk grad (test 3.02 mmHg code = 9563667376) PV VMAX (test code 0.78 m/s <=3 = 5108965651) Ao Root Diameter 2.77 cm <=3.99 (test code = 0913447943) Ao Root Diameter 2.77 cm (test code = 3961973009) Ascending aorta 2.95 cm (test code = 8501171232) BSA (test code = 2.02 m2 6837455988) BSA Rashid (test code 2.11 m2 = 5372965644) BSA Haycock (test 2.10 m2 code = 3010685327) Pred METS R1 (test 9.76 code = 5193486967) Pred Exer Dur R1 9.49 (test code = 3626351877) MV Decel slope 5.02 m/s2 (test code = 9489634008) LVPW pct thck PLAX 25.29 % (test code = 9841892537) LV vol s cube 2D 27.97 ml (test code = 7570362068) LV vol d cube 2D 86.49 ml (test code = 9207664872) LV SV Cube 2D (test 58.52 ml code = 5106954196) LV SI Cube 2D (test 28.94 ml/m2 code = 5197643514) IVS pct thck PLAX 16.96 % (test code = 3128727675) Calc MPHR (test 165.08 bpm code = 0934180185) AoV area I VMN bsa 1.20 cm2/m2 (test code = 6795056391) 85 of MPHR (test 140.32 code = 7141607347) RVOT VTI (test code 0.14 m = 4015668683) RVOT Vmn (test code 0.59 m/s = 7716543492) RVOT mean grad 1.54 mmHg (test code = 1342682850) LVOT mean grad 1.67 mmHg (test code = 2665218694) Aov area Vmn (test 2.42 cm2 code = 6120050317) Pt Wt (test code = 90.72 1276089053) Pt Size (test code 170.18 = 8960959107) MV AE ratio (test 0.16 code = 1428495535) LVOT Vmn (test code 0.61 = 4419560911) PV Vmn (test code = 17.84 m/s 7353060129) LV Vol Index s 41.57 ml/m2 bpmod BSA Gila (test code = 1428462752) LV SI MOD BP BSA 23.73 ml/m2 Jean Claude (test code = 5075934667) BMI (test code = 31.32 kg/m2 9775336897) LV Vol,s BP (test 36.07 nl code = 6883699108) LV Vol,d BP (test 84.05 ml code = 6345875191) LV SV,BP (test code 47.99 % = 2122457757) LV SV,A4C (test 44.47 % code = 0409785838) LV SV,A2C (test 47.51 % code = 7774545564) [place],s A4C 6.78 cm (test code = 2304971513) [place],s A2C 6.94 cm (test code = 4675431268) [place],d A4C 7.48 cm (test code = 5680514605) [place],d A2C 7.91 cm (test code = 8510111488) LV EF,A4C (test 54.41 % code = 6007467850) LV EF,A2C (test 57.86 % code = 2869490050) AoV VTI (test code 0.16 m = 5281491158) LVOT VTI (test code 0.14 m = 4918545390) MOE (test code = MOE) Left Ventricle: [...] status. Lab Interpretation Abnormal (test code = 17843-8) Kaushik GrantARS-CoV-2 (COVID-19) RNA [Presence] in Respiratory specimen by LEILANI with probe [id number] 05:21:05 Test Item Value Reference Range Interpretation Comments SARS-CoV-2 (COVID-19) RNA Not detected [Presence] in Respiratory specimen by LEILANI with probe detection (test code = 80960-6) Whether patient is employed in a Unknown healthcare setting (test code = 60896-2) Whether the patient has symptoms Unknown related to condition of interest (test code = 82238-4) Whether the patient was Unknown hospitalized for condition of interest (test code = 30483-0) Whether the patient was admitted Unknown to intensive care unit (ICU) for condition of interest (test code = 89026-3) Whether patient resides in a Unknown congregate care setting (test code = 32708-6) status (test code = Unknown 82706-5) Date and time of symptom onset Unknown (test code = 73870-4) [facility] ED Preliminary Interpretation - Not an [id number] 21:56:45 Test Item Value Reference Range Interpretation Comments MOE (test code = OME) Fortino Lozano MD 04/12/2022 9:18 [facility] [place] Interpretation - Not an OrderPerformed by: Fortino Lozano MDAuthorized by: Fortino Lozano MD ECG reviewed by ED Physician in the absence of a foreign exchange position clerk: yes Interpretation: Interpretation: abnormal Rate: ECG rate: 116 ECG rate assessment: tachycardic Rhythm: Rhythm: sinus tachycardia Ectopy: Ectopy: none QRS: QRS axis: Left QRS intervals: NormalConduction: Conduction: abnormal Abnormal conduction: complete RBBB ST segments: ST segments: NormalT waves: T waves: normal Comments: Similar to 10/10 Lab Interpretation Abnormal (test code = 54738-3) [facility] ED Preliminary Interpretation - Not an [id number] 21:56:45 Test Item Value Reference Range Interpretation Comments MOE (test code = MOE) Fortino Lozano MD 04/12/2022 9:18 [facility] [place] Interpretation - Not an OrderPerformed by: Fortino Lozano MDAuthorized by: Fortino Lozano MD ECG reviewed by ED Physician in the absence of a foreign exchange position clerk: yes Interpretation: Interpretation: abnormal Rate: ECG rate: 116 ECG rate assessment: tachycardic Rhythm: Rhythm: sinus tachycardia Ectopy: Ectopy: none QRS: QRS axis: Left QRS intervals: NormalConduction: Conduction: abnormal Abnormal conduction: complete RBBB ST segments: ST segments: NormalT waves: T waves: normal Comments: Similar to 10/10 Lab Interpretation Abnormal (test code = 14299-2) [facility] ED Preliminary Interpretation - Not an [id number] 21:56:45 Test Item Value Reference Range Interpretation Comments MOE (test code = MOE) Fortino Lozano MD 04/12/2022 9:18 [facility] ED Preliminary Interpretation - Not an OrderPerformed by: Fortino Lozano MDAuthorized by: Fortino Lozano MD ECG reviewed by ED Physician in the absence of a foreign exchange position clerk: yes Interpretation: Interpretation: abnormal Rate: ECG rate: 116 ECG rate assessment: tachycardic Rhythm: Rhythm: sinus tachycardia Ectopy: Ectopy: none QRS: QRS axis: Left QRS intervals: NormalConduction: Conduction: abnormal Abnormal conduction: complete RBBB ST segments: ST segments: NormalT waves: T waves: normal Comments: Similar to 10/10 Lab Interpretation Abnormal (test code = 95909-2) [facility] ED Preliminary Interpretation - Not an [id number] 21:56:45 Test Item Value Reference Range Interpretation Comments MOE (test code = MOE) Fortino Lozano MD 04/12/2022 9:18 [facility] [place] Interpretation - Not an OrderPerformed by: Fortino Lozano MDAuthorized by: Fortino Lozano MD ECG reviewed by ED Physician in the absence of a foreign exchange position clerk: yes Interpretation: Interpretation: abnormal Rate: ECG rate: 116 ECG rate assessment: tachycardic Rhythm: Rhythm: sinus tachycardia Ectopy: Ectopy: none QRS: QRS axis: Left QRS intervals: NormalConduction: Conduction: abnormal Abnormal conduction: complete RBBB ST segments: ST segments: NormalT waves: T waves: normal Comments: Similar to 10/10 Lab Interpretation Abnormal (test code = 20092-8) [facility] [Presence] in Respiratory specimen by LEILANI with probe [id number] 10:09:09 Test Item Value Reference Range Interpretation Comments SARS-CoV-2 (COVID-19) RNA Not detected [Presence] in Respiratory specimen by LEILANI with probe detection (test code = 86582-9) Whether patient is employed in a Unknown healthcare setting (test code = 17623-8) Whether the patient has symptoms Unknown related to condition of interest (test code = 20158-2) Whether the patient was Unknown hospitalized for condition of interest (test code = 89806-6) Whether the patient was admitted Unknown to intensive care unit (ICU) for condition of interest (test code = 34631-9) Whether patient resides in a Unknown congregate care setting (test code = 85149-8) status (test code = Unknown 82182-8) Date and time of symptom onset Unknown (test code = 11408-0) [facility]07[facility]00 Test Item Value Reference Range Interpretation Comments GLUBED (test code = 170 mg/dL 74-106 H Performe d by certified GLUBED) 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 [facility] [id number] 21:00:00 Test Item Value Reference Range Interpretation Comments GLUBED (test code = 185 mg/dL 74-106 H Performe d by certified GLUBED) 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 [facility] [id number] 15:40:00 Test Item Value Reference Range Interpretation Comments GLUBED (test code = 167 mg/dL 74-106 H Performe d by certified GLUBED) 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 [facility] [id number] 11:13:00 Test Item Value Reference Range Interpretation Comments GLUBED (test code = 212 mg/dL 74-106 H Performe d by certified GLUBED) 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 [facility] [id number] 08:09:00 Test Item Value Reference Range Interpretation Comments GLUBED (test code = 91 mg/dL 74-106 N Performe d by certified GLUBED) 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 [facility] [id number] 20:51:00 Test Item Value Reference Range Interpretation Comments GLUBED (test code = 155 mg/dL 74-106 H Performe d by certified GLUBED) 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 [facility] [id number] 15:53:00 Test Item Value Reference Range Interpretation Comments GLUBED (test code = 130 mg/dL 74-106 H Performe d by certified GLUBED) 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 [Automated mess age] The system [employer] generated this result transmitted ref erence range: >=60. Th e reference range was not used to int erpret this result as normal/abnormal . 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 [facility] [id number] 15:49:00 Test Item Value Reference Range Interpretation Comments GLUBED (test code = 191 mg/dL 74-106 H Performe d by certified GLUBED) 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 [facility] [id number] 10:43:00 Test Item Value Reference Range Interpretation Comments GLUBED (test code = 362 mg/dL 74-106 H Performe d by certified GLUBED) 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 [Automated mess age] The system [employer] generated this result transmitted ref erence range: >=60. Th e reference range was not used to int erpret this result as normal/abnormal . CREATININE (test 0.70 mg/dL 0.7-1.3 N code = CREAT) BUN/CREATININE RATIO 11.6 10-20 N (test code = BUN/CREA) CALCIUM (test code = 8.2 mg/dL 8.5-10.1 L CA) CBC W/AUTO [id number] 02:17:00 Test Item Value Reference Range Interpretation [...] = 0.00 K/mm3 0.0-0.1 N NRBC#) VANCOMYCIN [id number] 22:07:00 Test Item Value Reference Range Interpretation Comments VANCOMYCIN TROUGH (test code = 10.5 ug/mL 10-20 N VANCT) [id number] 20:15:00 Test Item Value Reference Range Interpretation Comments GLUBED (test code = 185 mg/dL 74-106 H Performe d by certified GLUBED) 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 [facility] [id number] 16:48:00 Test Item Value Reference Range Interpretation Comments GLUBED (test code = 280 mg/dL 74-106 H Performe d by certified GLUBED) 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 [facility] [id number] 13:00:00 Test Item Value Reference Range Interpretation Comments GLUBED (test code = 226 mg/dL 74-106 H Performe d by certified GLUBED) 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 [facility] [id number] 11:29:00 Test Item Value Reference Range Interpretation Comments GLUBED (test code = 246 mg/dL 74-106 H Performe d by certified GLUBED) 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 [facility] [id number] 10:34:00 Test Item Value Reference Range Interpretation Comments GLUBED (test code = 227 mg/dL 74-106 H Performe d by certified GLUBED) 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 [facility] [id number] 10:34:00 Test Item Value Reference Range Interpretation Comments GLUBED (test code = 256 mg/dL 74-106 H Performe d by certified GLUBED) 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 [facility] [id number] 10:34:00 Test Item Value Reference Range Interpretation Comments GLUBED (test code = 213 mg/dL 74-106 H Performe d by certified GLUBED) 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 [facility] [id number] 03:23:00 Test Item Value Reference Range Interpretation Comments GLYCOSYLATED HEMOGLOBIN 13.1 % HbA1 SUGG TERESAD (HA1C) (test code = DIAGNOSI S: HbA1C [...] DL RATIOS: Risk Male Female1/2 AVERAGE 3.43 3.27AVERAGE 4.9 7 4.442X AVERAGE 9.55 7.053X AVERAGE 23.39 11.04 REFERENCE VALUE IS RELATED TO R ISK LEVELS ASRECOMM ENDED BY THE NAT. TONG RT, LUNG, AND BLOOD INST. HDL CHOLESTEROL (test 27 mg/dL 40-60 L code = HDL) LIPOPROTEIN LDL (test 71 mg/dL 100-129 L ====== code = LDL) ======= Referen ce Interval: m g/dL mmol/L--------- ------- ------- ------O ptimal <100 <2.6Near/above optimal 100-129 2.6-3.3Borderli ne High 130-159 3.4-4.1 High 160-189 4.1-4.9 Very High >=190 >=4.9========= This LDL result is a direct measurement.=== ====== BASIC METABOLIC [id number] 18:01:00 Test Item Value Reference Range Interpretation [...] >3 months. [Automated mess age] The system [employer] generated this result transmitted ref erence range: >=60. Th e reference range was not used to int erpret this result as normal/abnormal . CREATININE (test 0.80 mg/dL 0.7-1.3 N code = CREAT) BUN/CREATININE RATIO 14.1 10-20 N (test code = BUN/CREA) CALCIUM (test code = 8.3 mg/dL 8.5-10.1 L CA) [id number] 18:01:00 Test Item Value Reference Range Interpretation Comments PHOSPHORUS (test code = PHOS) 2.8 mg/dL 2.5-4.9 N [id number] 18:01:00 Test Item Value Reference Range Interpretation Comments MAGNESIUM (test code = MAG) 1.7 mg/dL 1.8-2.4 L THYROID STIMULATING [id number] 18:01:00 Test Item Value Reference Range Interpretation Comments THYROID STIMULATING 0.667 uIU/mL 0.36-3.74 N TSH REFE RENCE HORMONE (test code = RANGES: EUTHYROID: TSH) 0.35 - 4.3 mIU/ mL HYPO : > 5.5 mI U/mL HYPER : < 0.35 mIU/mL CBC W/AUTO [id number] 18:00:00 Test Item Value Reference Range Interpretation [...] = 0.00 K/mm3 0.0-0.1 N NRBC#) LACTIC [id number] 14:22:00 Test Item Value Reference Range Interpretation Comments LACTIC ACID (test code = LACT) 1.3 mmol/L 0.4-1.9 N - XR TIBIA/FIBULA 2 V [id number] 12:37:00 [facility])Name: HARJINDER COLUNGA : 1965 Sex: M FAX: Jerry Roa MD [phone] [place]: St: REG Name: HARJINDER COLUNGA [facility] : 1965 Age/S: 56/M [address] [facility] Unit #: [id number] Loc: [place] [address] Phys: Jerry Roa MD Acct: [id number] Dis Date: Status: REG ER PHONE #: [phone] Exam Date: 12/31/2021 1226 FAX #: [phone] Reason: leg redness EXAMS: CPT CODE: [id number] XR TIBIA/FIBULA 2 [place] LT [address] REASON FOR EXAM: leg redness EXAM ORDER [...] appear edematous. Correlate with physical exam. Location: [facility] at 1237 Reported and signed by: Magan Rae MD CC: Jerry Roa MD Technologist: FORTINO SOSA, RT(R) Trnscrd Date/Time/By: 12/31/2021 (9199) : By: [email or web address] Orig Print D/T: S: 12/31/2021 (3952) PAGE 1 Signed Report- XR KNEE 3 V [id number] 12:37:00 [facility])Name: HARJINDER COLUNGA : 1965 Sex: M FAX: Jerry Roa MD [phone] [place]: B St: REG Name: HARJINDER COLUNGA [facility] : 1965 Age/S: 56/M [address] [facility] Unit #: [id number] Loc: [place] [address] Phys: Jerry Roa MD Acct: [id number] Dis Date: Status: REG ER PHONE #: [phone] Exam Date: 12/31/2021 1226 FAX #: [phone] Reason: leg redness EXAMS: CPT CODE: [id number] XR KNEE 3 [place] LT [address] REASON FOR EXAM: leg redness EXAM ORDER DATE: 12/31/2021 11:19 AM Ordering M.Tonja: Jerry Roa MD PROCEDURE: - XR KNEE 3 V LT, - XR TIBIA/FIBULA 2 V LT Comparison:No relevant priors FINDINGS: No acute fracture. Bony trabecular pattern isunremarkable. No cortical destruction or periosteal reaction. Small [...] appear edematous. Correlate with physical exam. Location: [facility] at 1237 Reported and signed by: Magan Rae MD CC: Jerry Roa MDTechnologist: RT STEFFANY(R) Trnscrd Date/Time/By: 12/31/2021 (6386) : By: [email or web address] [facility] Print D/T: S: 12/31/2021 (7953) PAGE 1 Signed ReportBASIC METABOLIC [id number] 12:10:00 Test Item Value Reference Range Interpretation [...] >3 months. [Automated mess age] The system [employer] generated this result transmitted ref erence range: >=60. Th e reference range was not used to int erpret this result as normal/abnormal . CREATININE (test code 1.00 mg/dL 0.7-1.3 N = CREAT) BUN/CREATININE RATIO 10.8 10-20 N (test code = BUN/CREA) CALCIUM (test code = 8.8 mg/dL 8.5-10.1 N CA) HEPATIC FUNCTION [id number] 12:10:00 Test Item Value Reference Range Interpretation [...] due ALKP) to change in reagent. LACTIC [id number] 12:08:00 Test Item Value Reference Range Interpretation Comments LACTIC ACID (test 2.1 mmol/L 0.4-1.9 HH Results ca lled to code = LACT) [id number] by 2IRD 4988 12/31/21 1208Cr itical results verifie d and read back by Darlyn rsmagdaleno? Y FOR ALL ICU PATIENT EXCLUDING HOLD PLEASE CALL [phone] CBC W/AUTO [id number] 11:58:00 Test Item Value Reference Range Interpretation [...] = 0.00 K/mm3 0.0-0.1 N NRBC#) POC [id number] 16:17:00 Test Item Value Reference Range Interpretation Comments POC glucose (test code 238 mg/dL 65-100 H Opera tor Name: Sherice = [id number]) FrancoDevice ID : [id number] Lab Interpretation Abnormal (test code = 46428-9) [facility] [id number] 16:17:00 Test Item Value Reference Range Interpretation Comments POC glucose (test code 238 mg/dL 65-100 H Opera tor Name: Sherice = 30134-6) FrancoDevice ID : [id number] Lab Interpretation Abnormal (test code = 17362-5) [facility] [id number] 11:12:00 Test Item Value Reference Range Interpretation Comments Urine culture Mixed yadi Specimen isolate (test <=10-3 col/cc InformationSp ecimen code = 37452-6) Source: [facility] Site: [facility]2022-08-24 11:12:00 Test Item Value Reference Range Interpretation Comments Urine culture Mixed yadi Specimen isolate (test <=10-3 col/cc InformationSp ecimen code = 19816-2) Source: [facility] Site: [facility]2022-08-24 11:12:00 Test Item Value Reference Range Interpretation Comments Urine culture Mixed yadi Specimen isolate (test <=10-3 col/cc InformationSp ecimen code = 93063-4) Source: [facility] Site: [facility] [id number] 11:12:00 Test Item Value Reference Range Interpretation Comments Urine culture Mixed yadi Specimen isolate (test <=10-3 col/cc InformationSp ecimen code = 50823-2) Source: [facility] Site: [facility] [id number] 11:12:00 Test Item Value Reference Range Interpretation Comments Urine culture Mixed yadi Specimen isolate (test <=10-3 col/cc InformationSp ecimen code = 51586-0) Source: [facility] eSpecimen [facility] [id number] 11:12:00 Test Item Value Reference Range Interpretation Comments Urine culture Mixed yadi Specimen isolate (test <=10-3 col/cc InformationSp ecimen code = 81422-3) Source: [facility]Specimen [facility] [Presence] in Respiratory specimen by LEILANI with probe [id number] 06:28:40 Test Item Value Reference Range Interpretation Comments SARS-CoV-2 (COVID-19) RNA Not detected [Presence] in Respiratory specimen by LEILANI with probe detection (test code = 94077-5) Whether patient is employed in a Unknown healthcare setting (test code = 62727-0) Whether the patient has symptoms Unknown related to condition of interest (test code = 73358-8) Whether the patient was Unknown hospitalized for condition of interest (test code = 22770-0) Whether the patient was admitted Unknown to intensive care unit (ICU) for condition of interest (test code = 48668-5) Whether patient resides in a Unknown congregate care setting (test code = 94029-5) status (test code = Unknown 11284-6) Date and time of symptom onset Unknown (test code = 63296-9) [facility] 12 [id number] 16:49:51 Test Item Value Reference Range Interpretation Comments Ventricular rate (test code = 253) Atrial rate (test code = 255) VT interval (test code = 266) QRSD interval [...] for Inferior infarct are no longer present- [facility] 12 [id number] 16:49:51 Test Item Value Reference Range Interpretation Comments Ventricular rate (test code = 253) Atrial rate (test code = 255) VT interval (test code = 266) QRSD interval [...] for Inferior infarct are no longer present- [facility] ED Preliminary Interpretation - Not an [id number] 04:49:00 Test Item Value Reference Range Interpretation Comments MOE (test code = MOE) Norberto Lanier FNP 10/11/2021 11:48 [facility] Interpretation - Not an OrderPerformed by: Norberto Lanier FNPAuthorized by: Fahad Anna MD ECG reviewed by ED Physician in the absence of a foreign exchange position clerk: yes Interpretation: Interpretation: abnormal Rate: ECG rate: 83 ECG rate assessment: normal Rhythm: Rhythm: sinus rhythm Ectopy: Ectopy: none QRS: QRS axis: Normal QRS intervals: WideConduction: Conduction: abnormal Abnormal conduction: complete RBBB and LAFB ST segments: ST segments: NormalT waves: T waves: non-specific Lab Interpretation Abnormal (test code = 39785-3) [facility] ED Preliminary Interpretation - Not an [id number] 04:49:00 Test Item Value Reference Range Interpretation Comments MOE (test code = MOE) Norberto Lanier FNP 10/11/2021 11:48 [facility] ED Preliminary Interpretation - Not an OrderPerformed by: Norberto Lanier, FNPAuthorized by: Fahad Anna MD ECG reviewed by ED Physician in the absence of a foreign exchange position clerk: yes Interpretation: Interpretation: abnormal Rate: ECG rate: 83 ECG rate assessment: normal Rhythm: Rhythm: sinus rhythm Ectopy: Ectopy: none QRS: QRS axis: Normal QRS intervals: WideConduction: Conduction: abnormal Abnormal conduction: complete RBBB and LAFB ST segments: ST segments: NormalT waves: T waves: non-specific Lab Interpretation Abnormal (test code = 70017-5) Bahai [id number] 18:34:00 Test Item Value Reference Range Interpretation Comments GLUBED (test code = 316 mg/dL 74-106 H Performe d by certified GLUBED) 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 Clean CatchDRUGS OF ABUSE SCREEN [id number] 17:45:00 Test Item Value Reference Range Interpretation Comments UR MDMA (test code = NEGATIVE NEGATIVE MDMAQLU) URN COCAINE (test code = NEGATIVE NEGATIVE [A utomated message] COCAURN) The system [employer] generated this result transmitted ref erence range: [...] NEGATIVE [A utomated message] OPIATURN) The system [employer] generated this result transmitted ref erence range: [...] [A utomated message] = METHAURN) The system [employer] generated this result transmitted ref erence range: <300 ng/ mL. The reference r maggi was not used to interpret this result as normal/abnor mal. Urine Source? Clean CatchBASIC METABOLIC [id number] 16:11:00 Test Item Value Reference Range Interpretation [...] >3 months. [Automated mess age] The system [employer] generated this result transmitted ref erence range: >=60. Th e reference range was not used to int erpret this result as normal/abnormal . CREATININE (test code 0.99 mg/dL 0.55-1.3 N = CREAT) BUN/CREATININE RATIO 15.2 10-20 N (test code = BUN/CREA) CALCIUM (test code = 8.1 mg/dL 8.0-10.5 N CA) [id number] 16:11:00 Test Item Value Reference Range Interpretation Comments TROPONIN-HS (test 5.1 pg/mL 0-60 N CAUTION: U nits of the code = TROPI) current test m ethodology (pg/mL)differ f rom the prior test meth odology (ng/mL) by a fa ctorof 1000. [id number] 16:11:00 Test Item Value Reference Range Interpretation Comments ALCOHOL (test code = 6 mg/dL 0.0-3.0 H ------- INTERPRET ALC) JAVI DATA NOTE: POSITIVE SCREEN ING RESULTS SHOULD BE CONSI DERED PRESUMPTIVE.WHE N COLLECTED FOR MEDICAL PUR POSES ONLY. SPECIMEN WILL N OTBE COLLECTED BY AIN OF CUSTODY.IF A CO NFIRMATION OF POSITIVE RES ULTS IS DESIRED, ACONFI RMATION TEST MUST BE RE QUESTED BY THE PHYSICIAN A T ANADDITIONAL CH ARGE TO THE PATIENT. CBC W/O [id number] 15:42:00 Test Item Value Reference Range Interpretation [...] N = MPV) - XR CHEST 1 [id number] 15:42:00 [facility] ([facility])Name: HARJINDER COLUNGA : 1965 Sex: M FAX: Brennan Dupont [phone] [place]: [place] St: PRE Name: HARJINDER COLUNGA FSED : 1965 Age/S: 56/M [address] [facility] N Unit #: [id number] Loc: [facility] [address] Phys: Brennan Dupont MD [place], [place] [address] Acct: [id number] Dis Date: Status: PRE ER PHONE #: Exam Date: 08/06/2021 1541 FAX #: Reason: WEAKNESS EXAMS: CPT CODE: [id number] XR CHEST 1 V 99953 REASON FOR EXAM: WEAKNESS Exam Order Date: 08/06/2021 3:22 PM Ordering M.D.: Brennan Dupont MD PROCEDURE: - XR CHEST 1 V COMPARISON: 06/28/2020 FINDINGS: Lines/Tubes: None The lungs are clear. There is no pleural effusion or pneumothorax. Pulmonary vascularity is within normal limits. Cardiomediastinal silhouette andmediastinal contours are unchanged when accounting for differences in technique. Musculoskeletal structures and visualized portions of the upper abdomen are also unchanged. IMPRESSION: No acute cardiopulmonary process. Location: [facility] at 1542 Reported and signed by: Ramu Ramos M.D. CC: Brennan Dupont MD Technologist: Jonathan Herndon RT(R)(CT) Trnscrd Date/Time/By: 08/06/2021 (6499) : By: [email or web address] Orig Print D/T: S: 08/06/2021 (6591) PAGE 1 Signed ReportLone Star Glucose -- Point of Care Meters (96464)2021-06-29 00:00:00 Test Item Value Reference Range Interpretation Comments BLOOD GLUCOSE-HOME MONITOR (test code = 266 70-110 A 90675-3) [id number] 16:34:00 Test Item Value Reference Range Interpretation Comments TROPONIN-I (test code = TROPI) <0.015 ng/mL 0.00-0.056 N URINALYSIS [id number] 15:41:00 Test Item Value Reference Range Interpretation [...] HPF NONE BACU) Urine Source? Clean CatchURINALYSIS [id number] 15:39:00 Test Item Value Reference Range Interpretation [...] Urine Source? Clean Catch- CT HEAD/BRAIN W/O [id number] 13:23:00 [facility] 1965 Sex: M Name: HARJINDER COLUNGA [facility] FSED : 1965 Age/S: 55 / M [address]: [id number] Loc: [address] Phys: Jerry Roa MD [place], [place] [address] Acct: [id number] Dis Date: Status: REG ER PHONE #: Exam Date: 12/24/2020 6579 FAX #: Reason: dizzy EXAMS: CPT CODE: [id number] CT HEAD/BRAIN W/O CONT 56723 HISTORY: dizzy TECHNIQUE: Noncontrast 2.5 mm axial [...] are intact. IMPRESSION: No acute intracranial process. LOCATION:LP at 1323 Reported and signed by: Mayuri Duncan D.O. PAGE 1 Signed Report (CONTINUED) Name: HARJINDER COLUNGA [facility] FSED : 1965 Age/S: 55 / M [address] [facility] N Unit #: [id number] Loc: [address] Phys: Jerry Roa MD [place], [place] [address] Acct: [id number] Dis Date: Status: REG ER PHONE #: Exam Date: 12/24/2020 1305 FAX #: Reason: dizzy EXAMS: CPT CODE: [id number] CT HEAD/BRAIN W/O CONT 74862 (Continued) CC: Jerry Roa MD Technologist:Vicky Saba RT(R)(CT) CTDI: DLP: Trnscb Date/Time: 12/24/2020 (1323) [email or web address] Orig Print D/T: S: 12/24/2020 (1326) PAGE 2 Signed ReportBASIC METABOLIC [id number] 12:45:00 Test Item Value Reference Range Interpretation [...] >3 months. [Automated mess age] The system [employer] generated this result transmitted ref erence range: >=60. Th e reference range was not used to int erpret this result as normal/abnormal . CREATININE (test 0.77 mg/dL 0.55-1.3 N code = CREAT) BUN/CREATININE RATIO 20.8 10-20 H (test code = BUN/CREA) CALCIUM (test code = 8.1 mg/dL 8.0-10.5 N CA) [id number] 12:45:00 Test Item Value Reference Range Interpretation Comments TROPONIN-I (test code = TROPI) <0.015 ng/mL 0.00-0.056 N CREATINE KINASE (CK)2020-12-24 12:43:00 Test Item Value Reference Range Interpretation Comments CREATINE KINASE (CK) (test code = CK) 38 U/L 39-308 L BASIC METABOLIC [id number] 12:37:00 Test Item Value Reference Range Interpretation [...] >3 months. [Automated mess age] The system [employer] generated this result transmitted ref erence range: >=60. Th e reference range was not used to int erpret this result as normal/abnormal . CREATININE (test 0.77 mg/dL 0.55-1.3 N code = CREAT) BUN/CREATININE RATIO 20.8 10-20 H (test code = BUN/CREA) CALCIUM (test code = 8.1 mg/dL 8.0-10.5 N CA) [id number] 12:37:00 Test Item Value Reference Range Interpretation Comments TROPONIN-I (test code = TROPI) pg/mL 0-45 CBC W/O [id number] 12:33:00 Test Item Value Reference Range Interpretation [...] code 9.3 fL 6.7-11.0 N = MPV) [id number] 09:02:00 Test Item Value Reference Range Interpretation Comments GLUBED (test code = GLUBED) 96 MG/DL 74-106 N [id number] 20:42:00 Test Item Value Reference Range Interpretation Comments GLUBED (test code = GLUBED) 213 MG/DL 74-106 H [id number] 16:51:00 Test Item Value Reference Range Interpretation Comments GLUBED (test code = GLUBED) 209 MG/DL 74-106 H [id number] 15:04:00 Test Item Value Reference Range Interpretation Comments GLUBED (test code = GLUBED) 215 MG/DL 74-106 H [id number] 14:45:00 Test Item Value Reference Range Interpretation Comments ACT-ISTAT (test code = ACTI) 213 SEC 74-125 H [id number] 14:14:00 Test Item Value Reference Range Interpretation Comments ACT-ISTAT (test code = ACTI) 274 SEC 74-125 H [id number] 14:13:00 Test Item Value Reference Range Interpretation Comments ACT-ISTAT (test code = ACTI) 241 SEC 74-125 H [id number] 08:29:00 Test Item Value Reference Range Interpretation Comments GLUBED (test code = GLUBED) 115 MG/DL 74-106 H [id number] 19:03:00 Test Item Value Reference Range Interpretation Comments GLUBED (test code = GLUBED) 143 MG/DL 74-106 H [id number] 16:36:00 Test Item Value Reference Range Interpretation Comments GLUBED (test code = GLUBED) 314 MG/DL 74-106 H [id number] 12:15:00 Test Item Value Reference Range Interpretation Comments GLUBED (test code = GLUBED) 130 MG/DL 74-106 H COVID 19 Asymptomatic IH [id number] 09:47:00 Test Item Value Reference Range Interpretation Comments COVID 19 Asymptomatic IH AG (test NEGATIVE Negative code = COVNONPUIAG) Spec Comments: PATIENT GOING TO CATH LABPROTHROMBIN [id number] 09:38:00 Test Item Value Reference Range Interpretation [...] from: Tissue he art valves 2.0 - 3. 0 Acute myocardial infa rction (to present sys temic embolism)* 2.0 - 3.0 Valvular heart disease 2.0 - 3.0 Atria l fibrillation 2. 0 - 3.03. Mechanica l prosthetic valv es (high risk) 2.5 - 3.5 * If oral anticoagulant t herapy is elected to preventrecurren t myocardial infa rction, an INR of 2.5-3 .5 isrecommended, consistent with Food and Drug Administrationr ecommen dations. IS PATIENT ON ANTICOAGULANTS ? 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 TO POLISH MAKER 1, THROMBOPLASTIN TIME [id number] 09:38:00 Test Item Value Reference Range Interpretation Comments THROMBOPLASTIN TIME 27.1 SECONDS 23.4-37.0 N Therape utic Range PARTIAL (test code = for Hep audrey PTT) EFFECTIVE Heparin IU/mL a PTT Seconds0.3 64.3 0.7 88.8 IS PATIENT ON ANTICOAGULANTS ? 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 TO POLISH MAKER 1,GLUBED 2020-07-03 08:24:00 Test Item Value Reference Range Interpretation Comments GLUBED (test code = GLUBED) 135 MG/DL 74-106 H BASIC METABOLIC [id number] 06:53:00 Test Item Value Reference Range Interpretation [...] 9.1 mg/dL 8.4-10.2 N CA) CBC W/AUTO [id number] 06:42:00 Test Item Value Reference Range Interpretation [...] = BA#) 0.05 x10 3/uL 0.0-0.1 N [id number] 21:27:00 Test Item Value Reference Range Interpretation Comments GLUBED (test code = GLUBED) 234 MG/DL 74-106 H [id number] 16:22:00 Test Item Value Reference Range Interpretation Comments GLUBED (test code = GLUBED) 195 MG/DL 74-106 H [id number] 12:04:00 Test Item Value Reference Range Interpretation Comments GLUBED (test code = GLUBED) 179 MG/DL 74-106 H [id number] 08:51:00 Test Item Value Reference Range Interpretation Comments GLUBED (test code = GLUBED) 124 MG/DL 74-106 H [id number] 20:53:00 Test Item Value Reference Range Interpretation Comments GLUBED (test code = GLUBED) 129 MG/DL 74-106 H [id number] 18:30:00 Test Item Value Reference Range Interpretation Comments GLUBED (test code = GLUBED) 174 MG/DL 74-106 H [id number] 12:32:00 Test Item Value Reference Range Interpretation Comments GLUBED (test code = GLUBED) 152 MG/DL 74-106 H [id number] 08:40:00 Test Item Value Reference Range Interpretation Comments GLUBED (test code = GLUBED) 98 MG/DL 74-106 N [id number] 20:46:00 Test Item Value Reference Range Interpretation Comments GLUBED (test code = GLUBED) 110 MG/DL 74-106 H - DUP LE ART [id number] 18:07:00 [facility] WOODName: HARJINDER COLUNGA : 1965 Sex: M FAX: Mazin Ponce Arm [phone] [place]: St: ADM FAX: Nathanael Romero [phone] --------- Name: HARJINDER COLUNGA [facility] : 1965 Age/S: 55/M [address] Unit #: [id number] Loc: [address] [place] [address] Phys: Mazin Sr Armen DPM R2 Acct: [id number] Dis Date: Status: ADM IN PHONE #: [phone] Exam Date: 06/30/2020 173 FAX #: [phone] Reason: WOUNDS EXAMS: CPT CODE: [id number] DUP LE ART PETER [address] STUDY: Bilateral lower extremity ultrasound with Doppler. [...] 82, biphasic, Popliteal artery: 52, biphasic Anterior tibialartery: 45, monophasic, Posterior tibial artery: 63, monophasic, Peroneal artery: 68, triphasic, Dorsalis pedis: 20, monophasic Right RADHA: 0.75. The RADHA: 0.74. IMPRESSION: Increased differential peak systolic velocity for the right common femoral and proximal superficial femoral arteries with monophasic waveforms distal to the common femoral artery indicative of significant stenosis between these arteries. Left infrapopliteal artery monophasic waveforms consistent with significant arterial disease distal to the popliteal artery. Bilateral RADHA values compatible with moderate arterial disease. PAGE 1 Signed Report (CONTINUED) FAX: RembertoMazin mora Adrian [phone] [place]: [facility]: ADM FAX: Nathanael Romero [phone] Name: HARJINDER COLUNGA [facility] : 1965 Age/S: 55/M [address] Unit #: [id number]: [address] [place] [address] Phys: Mazin Sr DPM R2 Acct: [id number] Dis Date: Status: ADM IN PHONE #: [phone] Exam Date: 06/30/2020 1731 FAX #: [phone] Reason: WOUNDS EXAMS:CPT CODE: [id number] DUP LE ART PETER [address] <Continued> at 1807 Reported and signed by: Donaldo Wen MD CC: Mazin Sr DPM; Nathanael Laureano Technologist: MARK Gallardo Trnscrd Date/Time/By: 06/30/2020 (180) : By: [email or web address] PAGE 2 Signed Report FAX: Mazin Sr Arm [phone] [place]: [facility]: ADM FAX: Nathanael Romero [phone] Name: HARJINDER COLUNGA [facility] [place] : 1965 Age/S: 55/M [address] Unit #: [id number] Loc: [address] [place] [address] Phys: Mazin Sr DPM R2 Acct: [id number] Dis Date: Status: ADM IN PHONE #: [phone] Exam Date: 06/30/2020 1731 FAX #: [phone] Reason: WOUNDS EXAMS: CPT CODE: [id number] DUP LE ART PETER [address] <Continued> Orig Print D/T: S: 06/30/2020 (1809) PAGE 3 Signed Report- DOP ART 1-2 LEVELS [id number] 18:07:00 [facility] : 1965 Sex: M FAX: Mazin Ponce Arm [phone] [place]: St: ADM FAX: Pavel Hicks MD [phone] Name: HARJINDER COLUNGA [facility] : 1965 Age/S: 55/M [address] Unit #: [id number] Loc: [address] [place] [address] Phys: Mazin Sr Abner DPM R2 Acct: [id number] Dis Date: Status: ADM IN PHONE #: [phone] Exam Date: 06/30/2020 173 FAX #: [phone] Reason: WOUNDS, HX OF SMOKING, NON PALP PULSES EXAMS: CPT CODE: [id number] DOP ART 1-2 LEVELS [facility] [address] STUDY: Bilateral lower extremity ultrasound with Doppler.HISTORY: Peripheral vascular disease COMPARISON: None. TECHNIQUE: Grayscale, [...] 68, triphasic, Dorsalis pedis: 20, monophasic Right RADHA: 0.75. The RADHA: 0.74. IMPRESSION: Increased differential peak systolic velocity for the right common femoral and proximal superficial femoral arteries with monophasic waveforms distal to the common femoral artery indicative of significant stenosis between these arteries. Left infrapopliteal artery monophasic waveforms consis tent with significant arterial disease distal to the popliteal artery. Bilateral RADHA values compatible with moderate arterial disease. PAGE 1 Signed Report (CONTINUED) FAX: Mazin Sr Adrian [phone] [place]: St: [facility] FAX: Pavel Hicks MD [phone] Name: HARJINDER COLUNGA [facility] : 1965 Age/S: 55/M [address] Unit #: [id number] Loc: [address] [place] [address] Phys: Mazin Sr DPM R2 Acct: [id number] Dis Date: Status: ADM IN PHONE #: [phone] Exam Date: 06/30/2020 173 FAX #: [phone] Reason: WOUNDS, HX OF SMOKING, NON PALP PULSES EXAMS: CPT CODE: [id number] DOP ART 1-2 LEVELS PETER [address] <Continued> at 1807 Reported and signed by: Donaldo Wen MD CC: Mazin Sr DPM; Pavel Muñoz MD Technologist: MARK Gallardo [facility] Date/Time/By: 06/30/2020 (1806) : By: [email or web address] PAGE 2 Signed Report FAX: Mazin Sr Arm [phone] [place]: St: ADM FAX: Pavel Hicks MD [phone] ------- Name: HARJINDER COLUNGA [facility] : 1965 Age/S: 55/M [address] Unit #: [id number] Loc: [address] [place] [address] Phys: Mazin Sr DPM R2 Acct: [id number] Dis Date: Status: ADM IN PHONE #: [phone] Exam Date: 06/30/2020 173 FAX #: [phone] Reason: WOUNDS, HX OF SMOKING, NON PALP PULSES EXAMS:CPT CODE: [id number] DOP ART 1-2 LEVELS PETER [address] <Continued> Orig Print D/T: S: 06/30/2020 (2300) PAGE 3 Signed [id number] 16:25:00 Test Item Value Reference Range Interpretation Comments GLUBED (test code = GLUBED) 244 MG/DL 74-106 H [id number] 12:16:00 Test Item Value Reference Range Interpretation Comments GLUBED (test code = GLUBED) 246 MG/DL 74-106 H [id number] 08:54:00 Test Item Value Reference Range Interpretation Comments GLUBED (test code = GLUBED) 172 MG/DL 74-106 H [id number] 21:00:00 Test Item Value Reference Range Interpretation Comments GLUBED (test code = GLUBED) 118 MG/DL 74-106 H [id number] 15:58:00 Test Item Value Reference Range Interpretation Comments GLUBED (test code = GLUBED) 249 MG/DL 74-106 H [id number] 12:28:00 Test Item Value Reference Range Interpretation Comments GLUBED (test code = GLUBED) 285 MG/DL 74-106 H - MRI LOW EXT W/O CONT [id number] 11:17:00 [facility] HAR[facility]INDER : 1965 Sex: M FAX: Mazin Ponce Arm [phone] [place]: St: ADM FAX: Pavel Hicks MD [phone] Name: HARJINDER COLUNGADOB: 1965 Age/S: 55/M [address] Unit #: [id number] Loc: [address] [place] [address] Phys: Mazin Sr DPM R2 Acct: [id number] Dis Date: Status: ADM IN PHONE #: [phone] Exam Date: 06/29/2020 0959 FAX #: [phone] Reason: PETER le WOUNDS IN FORE FOOT EXAMS: CPT CODE: [id number] [place] L[place] EXT W/[place] [address] EXAM: - MRI LOW EXT W/O CONT [...] DPM; Pavel Muñoz MD Technologist: Wendy Agee Trnscrd Date/Time/By: 06/29/2020 (1117) : By: [email or web address] PAGE 1 Signed Report FAX: Mazin Sr Arm [phone] [place]: [facility] St: ADMFAX: Pavel Hicks MD [phone] Name: HARJINDER COLUNGA [facility] : 1965 Age/S: 55/M [address] Unit #: [id number] Loc: [address] [place] [address] Phys: Mazin Sr DPM R2 Acct: [id number] Dis Date: Status: ADM IN PHONE #: [phone] Exam Date: 06/29/2020 0959 FAX #: [phone] Reason: PETER le WOUNDS IN FORE FOOT EXAMS: CPT CODE: [id number] MRI L[place] EXT W/[place] [address] <Continued> Orig Print D/T: S: 06/29/2020 (1120) PAGE 2 Signed Report- MRI LOW EXT W/O CONT RT 2020-06-29 10:16:00 [facility] : 1965 Sex: M FAX: Mazin Ponce Arm [phone] [place]: [facility]: ADM FAX: Pavel Hicks MD [phone] Name: HARJINDER COLUNGA ELEANORLoulou BarraganDOB: 1965 Age/S: 55/M [address] Unit #: [id number] Loc: [address] [place] [address] Phys: Mazin Sr DPM R2 Acct: [id number] Dis Date: Status: ADM IN PHONE #: [phone] Exam Date: 06/29/2020 0959 FAX #: [phone] Reason: PETER FOOT WOUNDS EXAMS: CPT CODE: [id number] MRI LOWEXT W/[place] [address] EXAM: - MRI LOW EXT W/O CONT RT HISTORY: PETER FOOT WOUNDS COMPARISON: None available at time of interpretation. TECHNIQUE: Multi sequential, multiplanar noncontrast MR images of the right foot. FINDINGS: Bones: No areas of confluent T1 hypointensity identified. Soft tissues: No dr ainable fluid collection. Muscles/tendons: Small amount of fluid in the peroneus longus tendon sheath. IMPRESSION: No osteomyelitis. No drainable fluid collection. Mild peroneus longus tenosynovitis. at 1016 Reported and signed by: Michael Bai MD CC: Mazin Sr DPM; Pavel Muñoz MD Technologist: Wendy Agee TrnscrdDate/Time/By: 06/29/2020 (1016) : By: Roseline.HV2 PAGE 1 Signed Report FAX: Mazin Sr Arm [phone] [place]: St: ADM FAX: Pavel Hicks MD [phone] Name: HARJINDER COLUNGA : 1965 Age/S: 55/M [address] Unit #: [id number] Loc: [address] [place] [address] Phys: Mazin Sr DPMR2 Acct: [id number] Dis Date: Status: ADM IN PHONE #: [phone] Exam Date: 06/29/2020 0959 FAX #: [phone] Reason: PETER FOOT WOUNDS EXAMS: CPT CODE: [id number] MRI L[place] EXT W/[place] [address] <Continued> Orig Print D/T: S: 06/29/2020 (8110) PAGE 2 Signed Report COMPREHENSIVE METABOLIC [id number] 09:31:00 Test Item Value Reference Range Interpretation [...] N (test code = ALKP) COMPREHENSIVE METABOLIC [id number] 09:30:00 Test Item Value Reference Range Interpretation [...] U/L 38-126 N (test code = ALKP) [id number] 09:28:00 Test Item Value Reference Range Interpretation Comments GLUBED (test code = GLUBED) 184 MG/DL 74-106 H CBC W/AUTO [id number] 07:48:00 Test Item Value Reference Range Interpretation [...] BA#) 0.03 x10 3/uL 0.0-0.1 N SED [id number] 07:48:00 Test Item Value Reference Range Interpretation Comments SED RATE (test code = SEDW) 85 mm/hr 0-20 H HGBA1C - GLYCOSYLATED [id number] 07:08:00 Test Item Value Reference Range Interpretation [...] with these hemo globin variants. CBC W/AUTO [id number] 06:43:00 Test Item Value Reference Range Interpretation [...] BA#) 0.03 x10 3/uL 0.0-0.1 N SED [id number] 06:43:00 Test Item Value Reference Range Interpretation [...] AVG 3 .43 FEMALE: 1/2 AVG 3.27 A VG 4.97 AVG 4.44 2 X AVG 9.55 2X AVG 7.0 5 3X AVG 23.39 3X AV G 11.04~~~~~~~~~~ ~~~~~ ~~~~~~~~~~~~~~~ ~~~~~ ~~~~~~~~~~~~~~~ ~~~~~ ~~~~~National Cholesterol Education (NCEP ) Guidelines:~~~~ ~~~~~ ~~~~~~~~~~~~~~~ ~~~~~ ~~~~~~~~~~~~~~~ ~~~~~ ~~~~~~~~~~~ H DL Cholesterol<4 0mg/d L: HDL Choleste rol (Major risk fac tor for CHD)>60mg/d L: HDL Cholesterol (Negative risk factor for CHD)40-59mg/dL: Borderline Risk LDL Cholesterol<1 00mg/ dL: Desirable L DL-C vhpiylmitoqpm73 0-159 mg/dL: Borderli ne High Risk LDL-C wmbtwobbcrwaw77 0-189 mg/dL: High ris k LDL-C concentra tion HDL-LDL Cholest adi is affected by a number of facto rs suchas smoking, age and sex.~~~~~~~~~~~ ~~~~~ ~~~~~~~~~~~~~~~ ~~~~~ ~~~~~~~~~~~~~~~ ~~~~~ ~~~~ C REACTIVE [id number] 05:49:00 Test Item Value Reference Range Interpretation [...] AVG 11.04~~~~~~~~~~ ~~~~~~~ ~~~~~~~~~~~~~~~ ~~~~~~~ ~~~~~~~~~~~~~~~ ~~~~~~[facility] Education (NCEP ) Guidelines:~~~~ ~~~~~~~ ~~~~~~~~~~~~~~~ ~~~~~~~ ~~~~~~~~~~~~~~~ ~~~~~~~ ~~~~~ HDL Cholesterol<4 0mg/dL: HDL Cholesterol (Major risk factor for CHD)>60mg/dL: H DL Cholesterol (Ne gative risk factor for CHD)40-59mg/dL: Borderline Risk LDL Cholesterol<1 00mg/dL : Desirable LDL -C hkyclmzdakytr94 0-159mg /dL: Borderline High Risk LDL-C dpywqufdtwffj44 0-189mg /dL: High risk LDL-C concentration H DL-LDL Cholesterol is affected by a n umber of factors such as smoking, age an d sex.~~~~~~~~~~~ ~~~~~~~ ~~~~~~~~~~~~~~~ ~~~~~~~ ~~~~~~~~~~~~~~~ ~~~~~ C REACTIVE [id number] 05:42:00 Test Item Value Reference Range Interpretation Comments C REACTIVE PROTEIN (test code = 51.3 mg/L 0-9 H CRP) [id number] 20:47:00 Test Item Value Reference Range Interpretation Comments GLUBED (test code = GLUBED) 253 MG/DL 74-106 H BASIC METABOLIC [id number] 17:16:00 Test Item Value Reference Range Interpretation Comments SODIUM (test code = 130 mmol/L 137-145 L NA) POTASSIUM (test code 4.6 mmol/L 3.4-5.0 N = K) CHLORIDE (test code = 93 mmol/L 98-107 L CL) CARBON DIOXIDE (test 29 mmol/L 22-30 N code = CO2) GLUCOSE (test code = 404 mg/dL 74-106 HH Critica l Value GLU) reported [facility] t Name:[id number] [place] Name:RESULTS RE AD BACK AND VERIFIEDby C.LAB.2, on 06/28/20, @ 171 6. BLOOD UREA [...] 9.1 mg/dL 8.4-10.2 N CA) LIVER FUNCTION [id number] 17:16:00 Test Item Value Reference Range Interpretation [...] 38-126 N (test code = ALKP) LACTIC [id number] 17:04:00 Test Item Value Reference Range Interpretation Comments LACTIC ACID (test code = LACT) 1.7 mmol/L 0.7-2.0 N - XR FOOT 3 + V [id number] 17:00:00 [facility] 1965 Sex: M FAX: Giovany Landa MD R1 [place]: St: REG Name: HARJINDER COLUNGA [facility] : 1965 Age/S: 55/M [address] Unit #: [id number] Loc: [place] [address] Phys: Giovany Landa MD R1 Acct: [id number] Dis Date: Status: REG ER PHONE #: [phone] Exam Date: 06/28/2020 1649 FAX #: [phone] Reason: left foot wound EXAMS: CPT CODE: [id number] XR FOOT 3 + V LT [address]33 EXAM: - XR FOOT 3 + V LT HISTORY: left foot wound COMPARISON: None available time of interpretation. FINDINGS: Frontal, oblique, and lateral views of theleft foot are provided. Chronic erosion in the 4th distal phalanx. No osseous erosion, periosteal justine ction, or local demineralization is noted to suggest the presence of infection. Vascular calcifications are noted. IMPRESSION: No radiographic evidence of osteomyelitis. If indicated, a bone scan or MRI are more sensitive for the detection of osteomyelitis. Electronically Signed by Michael Alba 06/28/2020 at 1700 Reported and signed by: Michael Bai MD CC: Giovany Landa MD Technologist: Lindsey Ha; STUDENT 2ND YEAR Trnscrd Date/Time/By: 06/28/2020 (1700) : By: [email or web address] PAGE 1 Signed Report FAX: Giovany Landa MD R1 [place]: St: REG Name: [facility] 1965 Age/S: 55/M [address] Unit #: [id number] Loc: [place] [address] Phys: Giovany Landa MD R1 Acct: [id number] Dis Date: Status: REG ER PHONE #: [phone] Exam Date: 06/28/2020 1649 FAX #: [phone] Reason: left foot wound EXAMS: CPT CODE: [id number] XR FOOT 3 + V LT [address]87 <Continued> Orig Print D/T: S: 06/28/2020 (5461) PAGE 2 Signed ReportUA RFLX MICR CULT IF [id number] 16:19:00 Test Item Value Reference Range Interpretation [...] oth srcSOURCE OF URINE: CLEAN CATCHCBC W/AUTO [id number] 15:48:00 Test Item Value Reference Range Interpretation [...] 3/uL 0.0-0.1 N - XR CHEST 1 [id number] 15:36:00 [facility] HAR[facility] : 1965 Sex: M FAX: Mi Ellis NP [place]: St: PRE -------- Name: HARJINDER COLUNGA : 1965 Age/S: 55/M [address] Unit #: [id number] Loc: [place] [address] Phys: Mi Ellis NP Acct: [id number] Dis Date: Status: PRE ER PHONE #: [phone] Exam Date: 06/28/2020 1533 FAX #: [phone] Reason: CODE SEPSIS EXAMS: CPT CODE: [id number] XR CHEST 1 V 67851 EXAMINATION: Frontal chest radiograph INDICATION: Code sepsis COMPARISON: 02/27/2016 FINDINGS: Clear lungs. No pleural effusion or pneumothorax. Normal cardiomediastinal silhouette. IMPRESSION: No acute abnormality identified. at 1536 Reported and signed by: Richard Linda M.D. CC: Mi Ellis NP Technologist: Lindsey Ha; STUDENT 2ND YEAR [facility] Date/Time/By: 06/28/2020 (1536) : By: [email or web address] PAGE 1 Signed Report FAX: Mi Ellis NP [place]: St: PRE Name: HARJINDER COLUNGA : 1965 Age/S: 55/M [address] Unit #: [id number] Loc: [place] [address] Phys: Mi Ellis NP Acct: [id number] Dis Date: Status: PRE ER PHONE #: [phone] Exam Date: 06/28/2020 1533 FAX #: [phone] Reason: CODE SEPSIS EXAMS: CPT CODE: [id number] XR CHEST 1 V 33879 <Continued> Orig Print D/T: S: 06/28/2020 (1539) PAGE 2 Signed Report- US EXTREM NON VASC [id number] 15:47:00[facility] CONROEName: HAR[facility] COL[facility] : 1965 Sex: M Patient Name: HARJINDER COLUNGA Unit No: [id number] EXAMS: CPT CODE: [id number] US EXTREM NON VASC LTD 81207 HISTORY: Infection Location: C3 FINDINGS: Sonographic images of the leg were obtained. No soft tissue fluid collection demonstrated. No cystic or solid mass identified. IMPRESSION: 1. Soft tissue edema without discrete dominant fluid collection or cystic or solid mass lesion. at 1547 Reported and signed by: Donaldo Tang M.D. CC: Rod Cerda HOSPICE CARE SALES CONSULTANT Technologist: Ely Lopez RDMS Trnscrbd D/ (1547) [email or web address] Probe: [id number] Orig Print D/T: S: 02/27/2020 (2080) Probe: CAMELIA Vora NAME: HARJINDER COLUNGA [address] [place] [address] PHYS: Rdo [place], [place] [address] : 1965 AGE: 54 SEX: M LOC: B.ERS PHONE #: [phone] EXAM DATE: 02/27/2020 STATUS: REG ER FAX #: [phone] RAD NO: Page 1 Signed ReportBASIC METABOLIC [id number] 15:20:00 Test Item Value Reference Range Interpretation [...] 70-110 HH ON 12/08 AT GLU) 1520, a.[facility].8 6 CALLED TO LUDIN LANG. The rep [...] NORMAL code = LIPINDEX) Index/DL GLUCOSE BEDSIDE [id number] 14:32:00 Test Item Value Reference Range Interpretation Comments GLUCOSE BEDSIDE 459 MG/DL 70-119 HH LOW/HIGH KVNG RT VALUE - TESTING (test code = ACTION REQUIRED GLUBED) - CT ABD PELVIS W/O [id number] 16:45:00 Name: HARJINDER COLUNGA FSED : 1965 Age/S: 54 / M [address] [facility] [address] Unit #: [id number] Loc: [address] Phys: Brennan Dupont MD [place], [place] [address] Acct: [id number] Dis Date: Status: REG ER PHONE #: Exam Date: 10/08/2019 4112 FAX #: Reason: R sided flan pain EXAMS: CPT CODE: [id number] CT ABD PELVIS W/O CONT 72854 EXAM: CT of the abdomen and pelvis without contrast; INFORMATION: Right-sided flank pain; TECHNIQUE: CT dose reduction protocol; Renal stone protocol; FINDINGS: The kidneys are of normal size and shape; no calcifications and no hydronephrosis. No evidence of ureteral stones. No evidence of appendicitis or other acute bowel abnormalities. Parenchymalorgans of the abdomen and the biliary system are unremarkable. No pelvic mass lesions; no abnormal fluid collections. Calcified plaques in the abdominal aorta and iliofemoral arteries. Scans through the lung bases are clear. IMPRESSION: 1. No evidence of renal or ureteral stones or of obstructive uropathy. 2. No evidence of acute abdominal or pelvic abnormalities. Location code: [facility] at 1645 Reported and signed by: Feliciano Mcdaniel M.D. 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 (test code = UAMICRO) COMPREHENSIVE METABOLIC [id number] 13:06:00 Test Item Value Reference Range Interpretation [...] 50-139 N code = ALKP) CBC W/AUTO [id number] 12:54:00 Test Item Value Reference Range Interpretation [...] REQUIRED (test code NO = MDIFF) CHEM [id number] 14:06:001.11[facility] HermannCHEM EAHHN1255-25-16 14:06:0078 [facility] EtdiizoDIGYSOWCUP5427-58-54 14:06:08531Mwyzujbl HermannHEMATOLOGY 2016-01-03 14:06:00 Test Item Value Reference Range Interpretation Comments PTT (test code = PTT) 24.1 s 22.9-35.8 [facility] WdssxxxGBCLTMEHNA3368-09-85 06:35:004.52Memorimi HermannHEMATOLOGY 2016-01-03 06:35:0013.3[facility] IbcicwjEFPKGEKTSK8744-25-95 06:35:009.9[facility] GmitkbkSUCSAQZZUG6835-46-60 06:35:002.6[facility] MkbrwwnLHWFLQPUHI3816-41-12 06:35:00Normal (01/03/16 1:35 AM)[facility] YvlmafgYTLRYLUVXQ2291-64-06 06:35:00 Normal (01/03/16 1:35 AM)[facility] HpnrugwTSAKMHMYUH3164-26-89 06:35:0019.4 [facility] DbbcfhiFMCRXVLWTR3223-84-19 06:35:0074.2[facility] HermannHEMATOLOGY 2016-01-03 06:35:000.1[facility] VwvoltwLFKKQIGGIL8764-80-78 06:35:000.7[facility] GxgcbqyACMLFQLGAB5150-93-19 06:35:000.1[facility] JvzgpkeDIOXMCFXLP3122-78-47 06:35:000.6[facility] EdrrvkvWWKPTRDRYD1585-95-47 06:35:000.8[facility] HARBJXTWQT0082-36-72 06:35:005.0[facility] HermannCARDIAC QEJHIDY1407-66-51 06:35:0047[facility] HermannCARDIAC UWWMBCG6160-19-00 06:35:0011[facility] CHEM DWHZI8118-16-53 06:35:79224Pitxmazt HermannCHEM XLKSH6840-68-12 06:35:00 13.5[facility] HermannCHEM DVBSS6432-39-31 06:35:0024[facility] HermannCHEM PANEL 2016-01-03 06:35:003.5[facility] HermannCHEM CAKXG5474-17-92 06:35:003.1[facility] HermannCHEM WCVCL9744-67-35 06:35:96191Kxujzbur HermannCHEM STISN9098-95-65 06:35:70952Izgyevuk HermannCHEM KSIFH9130-82-08 06:35:008.2[facility] HermannCHEM WZUCG3694-79-99 06:35:009[facility] HermannCHEM OVQJN7891-33-47 06:35:006.3 [facility] HermannCHEM GUCIN2944-87-98 06:35:003.2[facility] HermannCHEM PANEL 2016-01-03 06:35:0061[facility] HermannCHEM JEGNZ4087-14-93 06:35:000.5[facility] HermannCHEM SNBCS2862-55-00 06:35:0011[facility] HermannCHEM DLFAR5969-34-59 06:35:001.0[facility]annCHEM YKWKJ0048-58-40 06:35:0022[facility]annCHEM EOBNR4976-33-18 06:35:000.88[facility] HermannCHEM YSMWY3392-54-00 06:35:008 [facility]annCHEM NPFQJ9765-09-56 06:35:43965Oquhwqsm HermannCHEM PANEL 2016-01-03 06:35:001.8[facility] ApyzmmvXOLRRDWAWP7588-03-56 06:35:007.9[facility] XoinhzfNIVZQFFTMC2125-57-23 06:35:81266Ysalepnh UwcsqkbQLENQUXMTB3188-88-68 06:35:0034.8[facility] QrvanchNUFVEEDDNH0381-26-90 06:35:00 Test Item Value Reference Range Interpretation Comments MCH (test code = MCH) 30.9 pg 27.0-31.0 [facility] VhuvlwdPWKSERMLBN3648-55-67 06:35:0088.8[facility] HermannHEMATOLOGY 2016-01-03 06:35:0040.2[facility] KncverwFHNRRZTKGA7451-02-60 06:35:0014.0[facility] OasoyogLKWJXAPIAV0976-49-85 06:35:0012.8[facility] HermannCHEM URSUM1860-52-38 10:18:008.1[facility] HermannCHEM UNGWX8654-48-86 10:18:0026[facility] HermannCHEM GSYTW6488-59-28 10:18:28786Arierqym HermannCHEM PPOBU4236-42-89 10:18:009 [facility] HermannCHEM TROXM3768-22-99 10:18:004.0[facility] HermannCHEM PANEL 2015-12-19 10:18:33127Nwgwmcdg HermannCHEM NWTAQ6588-06-45 10:18:05749Lgyogtss HermannCHEM AFXCR3488-26-48 10:18:05743Dzattscy HermannCHEM BKJJF8671-69-98 10:18:000.76[facility] HermannCHEM TRWOA0167-01-08 10:18:0012.0[facility] NJDRQRIWSE8982-94-32 10:18:00 Test Item Value Reference Range Interpretation Comments MCH (test code = MCH) 30.4 pg 27.0-31.0 Memorial WydbiaqWFVNEWKTYF8763-65-28 10:18:24181Qfrewgkl HermannHEMATOLOGY 2015-12-19 10:18:0034.3[facility] CrrrmvkASLQKACFER4557-95-02 10:18:008.2[facility] CgvqnewUBVJPCMVMX0289-09-04 10:18:0012.4[facility] IeouowxCLAXQDTWBW9543-52-84 10:18:0010.3[facility] AfhfnxzKIDAKFNRGQ0092-82-74 10:18:004.51[facility] GIWPQWFXBD5726-17-70 10:18:0088.7[facility] KbssajzYIBVLACCBB3778-19-47 10:18:00 13.7[facility] IyumzpeMXVDWIELBT7279-91-12 10:18:0040.0[facility] HermannHEMATOLOGY 2015-12-19 10:18:0018.9[facility] XpgnkuoIVISQMSLXE9837-72-80 10:18:0073.5[facility] HpdmywqMHQZYSSMNB5916-51-28 10:18:006.7[facility] YyhoyavYYUQEJELDY8940-08-73 10:18:007.6[facility] LvflbpfVMDVDRLLZD2452-12-79 10:18:000.4[facility] MLWIFGKJKV2337-58-03 10:18:000.0[facility] LmnlfcmOONHOQOMIN1057-17-93 10:18:000.7 Memorial ZwffwckMIIWSVXGKM2636-93-47 10:18:000.5[facility] HermannHEMATOLOGY 2015-12-19 10:18:001.9[facility] RedjtubSCYMRSSUZN6480-77-08 10:18:000.0[facility] HermannCHEM ILJBM8616-92-99 04:30:0090[facility] HermannCHEM ZLQNN4893-67-16 04:30:007.8[facility] HermannCHEM AWZSJ5975-87-82 04:30:000.6[facility] HermannCHEM YRQBL4759-99-17 04:30:0062[facility] HermannCHEM KBBAY9143-91-76 04:30:0010 [facility] HermannCHEM MOYSI8354-22-63 04:30:0013.0[facility] HermannCHEM PANEL 2015-12-13 04:30:0024[facility] HermannCHEM CSSIR7733-17-75 04:30:001.34[facility] HermannCHEM SCVMY7862-28-59 04:30:57923Ildfyisp HermannCHEM MLPBQ8376-57-13 04:30:0015[facility] HermannCHEM WVDCE1619-84-76 04:30:0017[facility] HermannCHEM NGPDK4332-75-37 04:30:003.7[facility] HermannCHEM SPUIL3114-28-27 04:30:0011 [facility] HermannCHEM CAVQG8563-04-99 04:30:004.0[facility] HermannCHEM PANEL 2015-12-13 04:30:008.6[facility] HermannCHEM YSYCB9724-36-89 04:30:01011Cwqcrivi HermannCHEM DERYP4065-36-15 04:30:0099[facility] HermannCHEM CNRXW0433-84-70 04:30:004.1[facility] HermannCHEM URVJM2610-99-15 04:30:000.9[facility] MHSAWBIRTE2694-49-61 04:30:000.4[facility] EqxsnbiABMYUZMQEX8277-11-11 04:30:000.0 Memorial QppapeoMQLSWLOKTD7428-74-33 04:30:001.3[facility] HermannHEMATOLOGY 2015-12-13 04:30:006.1[facility] DcixyliTQUPDHXGCL6867-93-52 04:30:000.3[facility] RibmoafXFEVBSXHHE0344-81-15 04:30:000.4[facility] VkjyqrlIBAMCUTWVS8210-05-93 04:30:005.5[facility] XvztgcdJHZJSAOWLJ1995-97-52 04:30:0077.4[facility] YSGRWEBYBI3240-13-09 04:30:0016.4[facility] TfsfexnUFABZGZGXP3314-86-35 04:30:00 340[facility] IbabqfuOKZCPRUSAT0253-76-49 04:30:008.4[facility] HermannHEMATOLOGY 2015-12-13 04:30:0034.2[facility] DkqndefVFMARRXNKK0922-44-12 04:30:0012.8[facility] XfmnlsnJSEBGPVYOW1344-37-56 04:30:0015.3[facility] NhpwthbTZYULJHAZU0199-65-35 04:30:0044.7[facility] TmxpconWXFWPARNDY2998-78-26 04:30:00 Test Item Value Reference Range Interpretation Comments MCH (test code = MCH) 30.6 pg 27.0-31.0 [facility] QyasbqgPCHOEEURNQ6613-60-03 04:30:0089.4[facility] HermannHEMATOLOGY 2015-12-13 04:30:007.9[facility] UjcxrzrLTLIGZCNGO3733-14-24 04:30:004.99[facility] AqplavjUGPWWSIQLW3458-38-55 04:30:00<2[facility] QhbrsdiPFAAWAHXDF2230-51-88 04:30:00<0.003[facility] PjbhbfkCKWEGTRXOI7873-91-06 04:30:00<3[facility] GtwdwofNOHHCPYCUN7416-28-43 04:30:004.1[facility] Notes Date/Time Note Provider Source 2022-02-17 16:00:00-00:00 [id number] [facility] PATIENT NAME: HARJINDER COLUNGA ADMIT DATE: 01/01/22 ACCOUNT NO: [id number] ROOM NO: V.3047 AGE: 56 REPORT TYPE: 360 - QUERY RESPONSE DOCUMENT SEX: M DATE OF : [birth year] ADMITTING PHYSICIAN:Ab Lucas MD ATTENDING PHYSICIAN:Ab Lucas MD Provider Query QUERY TEXT: Relationship Diagnoses General 360MD Query related questions should be directed to:[facility] Coding Query Helpline Please clarify the relationship, [...] Query related questions should be directed to:[facility] Coding Query Helpline Based on your clinical judgment, can you provide the known or suspected condition(s) that represent(s) the clinical indicators listed below and if the condition(s) are present on admission (POA)? The following definitions are provided based on industry literature and in collaboration with [facility] for your reference only: [...] Indicators include: Cellulitis Pulse Ox 96 12/31 1119 B/P 137/77 12/31 1119 B/P Mean 97 12/31 1119 O2 Delivery Room air 12/31 111 Temp 36.9 12/31 111 Pulse 91 12/31 1119 Resp 20 12/31 1119 Piperacillin Sod/ 3.375 G X1ED STA 12/31 1119 DC r 12/31 Lactic Acid (0.4 - [...] PATIENT NAME: HARJINDER COLUNGA 966 2022-01-05 10:29:00-00:00 [facility] ([facility]) Discharge Summary REPORT#:[id number] REPORT STATUS: Signed DATE:01/05/22 TIME: 1029 PATIENT: HARJINDER COLUNGA UNIT #: [id number] ROOM/BED: [facility]7-A : [birth year] AGE: 56 SEX: M ATTEND: Zoya Lucsa MD ADM AUTHOR: Armida Marmolejo NP * ALL edits or amendments must be made on the el [employer]/computer document * PCP PCP PCP: PCP: Dr. Jhon Jones Discharge to: home General Information Problem List/A P: 1. Cellulitis of left anterior lower leg 2. Uncontrolled type 2 diabetes mellitus with h yperglycemia, with long-term current use of insulin 3. Well-controlled hypertension 4. Tobacco use disorder 5. Hyperlipidemia due to type 2 diabetes [facility] 6. Ambulatory dysfunction 7. Hypomagnesemia 8. 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 HbA1C ordered. Maintain nutritional support with ADA diet. Monitor FSBG ac hs. Home dose of Lantus Insulin 15u q hs; medium dose sliding scale insu osiris. 3. Controlled HTN- Admit BP 137/77; home dose of Losartan resumed. Monitor BP. 4. 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 [place], [place], [address], > 70 mins 01/01/22 1. Cellulitis Left [...] 2 DM with hyperglycemia, wi th termite control representative current use of insulin, blindness- 12/31 Serum glucose 216. 01/01 ZzA8K=38.1. Maintain nutritional support with ADA diet. Monitor [...] Lovenox DNR status per patient preference. Inpatient, 712[address], > 35 mins 01/02/22 1. Cellulitis Left Anterior Lower Extremity- Cellulitis slowly improving. Pt is on tramadol as needed for pa in management. On IV vancomycin and zosyn. Pharmacy following for vancomycin dosing. 2. Uncontrolled Type 2 DM with hyperglycemia, wi th termite control representative current use of insulin, blindness- 01/01 PoX4U=13.1. On lantus insulin just titrated the dose [...] Pepcid, Lovenox DNR status per patient preference. [address], > 35 mins 01/03/22 1. Cellulitis Left Anterior Lower Extremity- Cellulitis slowly improving. Pt is on tramadol as needed for pain management. pineda ed vancomycin and zosyn to Unasyn. 2. Uncontrolled Type 2 DM with hyperglycemia, wi th nursing home current use of insulin, blindness- 01/01 UzH2W=15.1. On lantus i nsulin , BG 155. continue to monitor BG ac and hs 3. Controlled HTN- on Losartan , Monitor BP. 4. Tobacco Use Disorder with 40 pack years, use of smokeless tobacco, chronic cough- Continue nicotine patch 5. 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 Ppx: Pepcid, Lovenox DNR status per patient preference. 50519, > 35 mins 01/04/22 1. Cellulitis Left Anterior Lower Extremity- Jaqueline lulitis improving. Pt is on tramadol as needed for pain management. On Unasy n. 2. Uncontrolled Type 2 DM with hyperglycemia, wi th termite control representative current use of insulin, blindness- 01/01 GmF8P=46.1. On lantus i nsulin , BG 155. continue to monitor BG ac and hs 3. Controlled HTN- on Losartan , Monitor BP. 4. Tobacco Use Disorder with 40 pack years, use of smokeless tobacco, chronic cough- Continue nicotine patch 5. 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 Ppx: Pepcid, Lovenox DNR status per patient preference. 699[address], > 35 mins 01/05/22 Patient got admitted [...] Documented: Result Date Time Pulse Ox 97 01/06 804 B/P 120/73 01/06 804 B/P Mean 88.8 01/06 804 O2 Delivery Room air 01/06 804 Temp 97.7 01/06 804 Pulse 69 01/05 08 Resp 18 01/06 804 PATIENT WEIGHT: Weight (lb): Weight (oz): Weight (kg): 77.273 General appearance: alert, awake, oriented, no a cute distress Head/Eyes: atraumatic, normocephalic ENT: normal nose, moist mucosal membranes Neck: non-tender, no JVD Cardiovascular: regular rate rhythm, normal hear t sounds Respiratory: no distress, aerating well, symmetr ic expansion GI: soft, non-tender, no distention Extremities: no edema-all extremities Musculoskeletal: right BKA, uses wheelchair Neuro/BANANA GRADER: alert, oriented X 3 Skin: intact Psychiatry: [...] Ab Lucas MD on at 1833 RPT #:[id number] END OF REPORT 2022-01-04 21:24:00-00:00 [facility] ([facility] Internal Medicine Prog. Note REPORT#:[id number] REPORT STATUS: Signed DATE:01/04/22 TIME: 2123 PATIENT: HARJINDER COLUNGA UNIT #: [id number] ROOM/BED: [address] : 69 AGE: 56 SEX: M ATTEND: Zoya Lucas MD ADM AUTHOR: Armida Marmolejo NP * ALL edits or amendments must be made on the seedchange/computer document * Subjective Chief complaint: Left Leg [...] edema Musculoskeletal: no muscle spasm, Right BKA Neuro/BANANA GRADER: alert, oriented x 3, CNII-XII intact, normal [...] 5. Hyperlipidemia due to type 2 diabetes [facility] 6. Ambulatory dysfunction 7. Hypomagnesemia 8. 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 HbA1C ordered. Maintain nutritional support with ADA diet. Monitor FSBG ac hs. Home dose of Lantus Insulin 15u q hs; medium dose sliding scale insu osiris. 3. Controlled HTN- Admit BP 137/77; home dose of Losartan resumed. Monitor BP. 4. 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 H P, Obs, 86278, > 70 mins 01/01/22 1. Cellulitis Left Anterior Lower Extremity- 12/20 2 Admit WBC 8.3; Lactic Acid improved from 2.3 to 1.3. On Zosyn Vancomycin; P kiera consulted for Vancomycin dosing assistance , monitor vanc trough levels, goal trough 10-15mcg/ ml. NS IVF 125cc/hr. Morphin e IV prn pain. Doppler was negative for DVT. Monitor the marked line of demarcation for resolution vs worsening of erythema. 2. Uncontrolled Type 2 DM with hyperglycemia, wi th termite control representative current use of insulin, blindness- 12/31 Serum glucose 216. 01/01 ZoL2C=37.1. Maintain nutritional support with ADA diet. Monitor [...] Lovenox DNR status per patient preference. Inpatient, 65315, > 35 mins 01/02/22 1. Cellulitis Left Anterior Lower Extremity- Cellulitis slowly improving. Pt is on tramadol as needed for pa in management. On IV vancomycin and zosyn. Pharmacy following for vancomycin dosing. 2. Uncontrolled Type 2 DM with hyperglycemia, wi th termite control representative current use of insulin, blindness- 01/01 AhJ7P=39.1. On lantus insulin just titrated the dose [...] Pepcid, Lovenox DNR status per patient preference. 29942, > 35 mins 01/03/22 1. Cellulitis Left Anterior Lower Extremity- Cellulitis slowly improving. Pt is on tramadol as needed for pain management. pineda ed vancomycin and zosyn to Unasyn. 2. Uncontrolled Type 2 DM with hyperglycemia, wi th nursing home current use of insulin, blindness- 01/01 PpC6L=15.1. On lantus i nsulin , BG 155. continue to monitor BG ac and hs 3. Controlled HTN- on Losartan , Monitor BP. 4. Tobacco Use Disorder with 40 pack years, use of smokeless tobacco, chronic cough- Continue nicotine patch 5. 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 Ppx: Pepcid, Lovenox DNR status per patient preference. 60892, > 35 mins 01/04/22 1. Cellulitis Left Anterior Lower Extremity- Jaqueline lulitis improving. Pt is on tramadol as needed for pain management. On Unasy n. 2. Uncontrolled Type 2 DM with hyperglycemia, wi th nursing home current use of insulin, blindness- 01/01 QuU3W=11.1. On lantus i nsulin , BG 155. continue to monitor BG ac and hs 3. Controlled HTN- on Losartan , Monitor BP. 4. Tobacco Use Disorder with 40 pack years, use of smokeless tobacco, chronic cough- Continue nicotine patch 5. 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 Ppx: Pepcid, Lovenox DNR status per patient preference. 75149, > 35 mins Electronically Signed by Armida Marmolejo NP on 12/20 12/10 at 2119 Electronically Signed by Ab Lucas MD on at 1830 RPT #:[id number] END OF REPORT 2022-01-03 22:24:00-00:00 [facility] ([facility]) Internal Medicine Prog. Note REPORT#:[id number] REPORT STATUS: Signed DATE:01/03/22 TIME: 2223 PATIENT: HARJINDER COLUNGA UNIT #: [id number] ROOM/BED: 3047-A : 69 AGE: 56 SEX: M ATTEND: Zoya Lucas MD ADM AUTHOR: Armida Marmolejo NP * ALL edits or amendments must be made on the [employer] document * Subjective Chief complaint: Left Leg [...] 01/03 2023 O2 Delivery Room air 01/03 1553 PATIENT WEIGHT: Weight (lb): Weight (oz): Weight [...] edema Musculoskeletal: no muscle spasm, Right BKA Neuro/BANANA GRADER: alert, oriented x 3, CNII-XII intact, normal speech Skin: dry, no rash, Erythema at left leg; line of demarcation marked at 16:00 ON 12/31. Psychiatry: normal affect, normal judgement/insi ght, normal mood Results Findings/Data: Laboratory Tests 01/03/22 0549: [Embedded Image Not Available] Laboratory Tests 01/03 1551 1114 0747 0549 Chemistry Sodium (136 - 145 mmol/L) 135 [...] (Auto) (25.0 - 55.0 %) 23.2 L Nicollet % (Auto) (0.0 - 10.0 %) 8.6 Eos % (Auto) (0.0 - 5.0 %) 2.4 Baso % (Auto) (0.0 - 1.0 %) 0.5 Neut # (Auto) (1.8 - 7.7 K/mm3) 2.65 Lymph # (Auto) (1.0 - 5.0 K/mm3) 0.95 L Nicollet # (Auto) (0 - 0.8 K/mm3) 0.35 [...] 5. Hyperlipidemia due to type 2 diabetes [facility] 6. Ambulatory dysfunction 7. Hypomagnesemia 8. 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 HbA1C ordered. Maintain nutritional support with ADA diet. Monitor FSBG ac hs. Home dose of Lantus Insulin 15u q hs; medium dose sliding scale insu osiris. 3. Controlled HTN- Admit BP 137/77; home dose of Losartan resumed. Monitor BP. 4. 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 H P, Obs, 34546, > 70 mins 01/01/22 1. Cellulitis Left [...] 2 DM with hyperglycemia, wi th termite control representative current use of insulin, blindness- 12/31 Serum glucose 216. 01/01 RuC6R=70.1. Maintain nutritional support with ADA diet. Monitor [...] Lovenox DNR status per patient preference. Inpatient, 65229, > 35 mins 01/02/22 1. Cellulitis Left Anterior Lower Extremity- Cellulitis slowly improving. Pt is on tramadol as needed for pa in management. On IV vancomycin and zosyn. Pharmacy following for vancomycin dosing. 2. Uncontrolled Type 2 DM with hyperglycemia, wi th nursing home current use of insulin, blindness- 01/01 CdI5S=85.1. On lantus insulin just titrated the dose [...] Pepcid, Lovenox DNR status per patient preference. 88720, > 35 mins 01/03/22 1. Cellulitis Left Anterior Lower Extremity- Cellulitis slowly improving. Pt is on tramadol as needed for pain management. pineda ed vancomycin and zosyn to Unasyn. 2. Uncontrolled Type 2 DM with hyperglycemia, wi th nursing home current use of insulin, blindness- 01/01 WoP8P=05.1. On lantus i nsulin , BG 155. continue to monitor BG ac and hs 3. Controlled HTN- on Losartan , Monitor BP. 4. Tobacco Use Disorder with 40 pack years, use of smokeless tobacco, chronic cough- Continue nicotine patch 5. 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 Ppx: Pepcid, Lovenox DNR status per patient preference. 14397, > 35 mins Electronically Signed by Armida Marmolejo NP on 12/20 09/09 at 2252 Electronically Signed by Ab Lucas MD on at 4383 RPT #:[id number] END OF REPORT 2022-01-02 17:16:00-00:00 [facility] ([facility]) Internal Medicine Prog. Note REPORT#:[id number] REPORT STATUS: Signed DATE:01/02/22 TIME: 1715 PATIENT: HARJINDER COLUNGA UNIT #: [id number] ROOM/BED: [address] : 69 AGE: 56 SEX: M ATTEND: Zoya Lucas MD ADM AUTHOR: Armida Marmolejo NP * ALL edits or amendments must be made on the [employer]/computer document * Subjective Chief complaint: Left Leg [...] Resp B/P B/P Mean Pulse Ox FiO2 01/01-01/02 97.7-98.2 69-80 18 122-157/68-80 86 .0-105.9 [...] edema Musculoskeletal: no muscle spasm, Right BKA Neuro/BANANA GRADER: alert, oriented x 3, CNII-XII intact, normal speech Skin: dry, no rash, Erythema at left leg; line of demarcation marked at 16:00 ON 12/31. Psychiatry: normal affect, normal judgement/insi ght, normal mood Results Findings/Data: Laboratory Tests 01/02/22 0126: [Embedded Image Not Available] Laboratory Tests 01/02 01/02 01/02 01/02 01/01 1543 1040 0756 125 2013 Chemistry Sodium (136 - 145 mmol/L) [...] % (Auto) (25.0 - 55.0 %) 26.7 Nicollet % (Auto) (0.0 - 10.0 %) 6.8 Eos % (Auto) (0.0 - 5.0 %) 2.7 Baso % (Auto) (0.0 - 1.0 %) 0.7 Neut # (Auto) (1.8 - 7.7 K/mm3) 2.75 Lymph # (Auto) (1.0 - 5.0 K/mm3) 1.17 Nicollet # (Auto) (0 - 0.8 K/mm3) 0.30 [...] 5. Hyperlipidemia due to type 2 diabetes [facility] 6. Ambulatory dysfunction 7. Hypomagnesemia 8. Left [...] Doppler was negative for DVT. He is cur rently on IV Zosyn, IV vancomycin, normal saline and morphine. He is currently seen in [place]. 1. Cellulitis Left Anterior Lower Extremity- 12/20 2 Admit WBC 8.3; Lactic Acid improved from 2.3 to 1.3. On Zosyn Vancomycin. N S IVF 125cc/hr. Morphine IV prn pain. Doppler was negative for DVT. 2. Uncontrolled Type 2 DM with hyperglycemia, wi th termite control representative current use of insulin blindness- 12/31 Serum glucose 216. HbA1C ordered. Maintain nutritional support with ADA diet. Monitor FSBG ac hs. Home dose of Lantus Insulin 15u q hs; medium dose sliding scale insu osiris. 3. Controlled HTN- Admit BP 137/77; home dose of Losartan resumed. Monitor BP. 4. 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 H P, Obs, 20059, > 70 mins 01/01/22 1. Cellulitis Left [...] Type 2 DM with hyperglycemia, wi th nursing home current use of insulin, blindness- 12/31 Serum glucose 216. 01/01 BfK1A=97.1. Maintain nutritional support with ADA diet. Monitor [...] Lovenox DNR status per patient preference. Inpatient, 45602, > 35 mins 01/02/22 1. Cellulitis Left Anterior Lower Extremity- Cellulitis slowly improving. Pt is on tramadol as needed for pa in management. On IV vancomycin and zosyn. Pharmacy following for vancomycin dosing. 2. Uncontrolled Type 2 DM with hyperglycemia, wi th nursing home current use of insulin, blindness- 01/01 PgT0L=86.1. On lantus insulin just titrated the dose [...] Pepcid, Lovenox DNR status per patient preference. 81944, > 35 mins Electronically Signed by Armiad Marmolejo NP on 12/20 08/10 at 1728 Electronically Signed by Ab Lucas MD on at 1422 RPT #:[id number] END OF REPORT 2022-01-02 07:17:00-00:00 [facility] ([facility]) Pharmacy Prog.Note-Vancomycin REPORT#:[id number] REPORT STATUS: Signed DATE:01/02/22 TIME: 716 PATIENT: HARJINDER COLUNGA UNIT #: [id number] ROOM/BED: [place] [address] : 69 AGE: 56 SEX: M ATTEND: Zoya Lucas MD ADM AUTHOR: Thong Matt [facility] * ALL edits or amendments must be made on the el [employer]/computer document * Vancomycin Vancomycin Medication Therapy Goal: trough 10-15 mcg/mL Indication for treatment: SSTI Current therapy: vancomycin 1000 mg IV q12h Weight: Actual weight (kg): 77.3 VS and I/O: Vital Signs Date Temp Pulse Resp B/P B/P Mean Pulse Ox FiO2 12/31-01/02 97.5-98.4 72-91 15-20 102-165/62-78 75.1-100.6 91-99 72 hours ending at 0700 01/02 0700 01/01 1900 01/01 19012/30 07 1900 Intake Total Output Total Balance Patient 77.273 kg Weight Weight Stated/Rep orted Measuremen t Method 72 Hour I O Total 01/02 07 Intake Total Output Total Balance Labs: Laboratory Tests: 01/01 2038 Toxicology Vancomycin Trough (10 - 20 ug/mL) 10.5 Laboratory Test : 01/02 0126 Chemistry BUN (7 - 18 mg/dL) 8 Creatinine (0.7 - 1.3 mg/dL) 0.70 Hematology WBC (4.5 - 12.5 K/mm3) 4.4 L Microbiology: 12/31 1217 BLOOD: Blood Culture - RES 12/31 112 BLOOD: Blood Culture - RES Treatment plan: consult, cont current regimen/do se Regimen: Pharmacy consulted to dose vancomycin empiricall y to goal trough 10-15 mcg/ml for SSTI. Pt has been on vancomycin at 1000 mg IV q12h. Tr ough resulted at 10.5 mcg/ml. Continue current regimen. Pharmacy will continue to follow. at 0719 RPT #:[id number] END OF REPORT 2022-01-01 22:53:00-00:00 [facility] ([facility]) Internal Medicine Prog. Note REPORT#:[id number] REPORT STATUS: Signed DATE:01/01/22 TIME: 2252 PATIENT: HARJINDER COLUNGA UNIT #: [id number] ROOM/BED: [address] : 69 AGE: 56 SEX: M ATTEND: Zoya Lucas MD ADM AUTHOR: Chris Trotter HOSPICE CARE SALES CONSULTANT * ALL edits or amendments must be made on the [employer]/computer document * Subjective Chief complaint: Left Leg [...] 01/01 2015 O2 Delivery Room air 01/01 0349 24 hour I O ending at 0700: [...] edema Musculoskeletal: no muscle spasm, Right BKA Neuro/BANANA GRADER: alert, oriented x 3, CNII-XII intact, normal [...] appear edematous. Correlate with physical exam. Location: [facility] Impression By: Alma Rae MD RADIOLOGY - XR TIBIA/FIBULA 2 V LT 12/31 1226 Report Impression - Status: SIGNED Entered: 12/31/2021 1240 IMPRESSION: Mild degenerative changes of the left knee. Othe rwise no radiographically evident bony abnormalities are seen in the scanned left lower extremity. The subcutaneous soft tissues appear edematous. Correlate with physical exam. Location: [facility] Impression By: Alma Rae MD Results: labs [...] 5. Hyperlipidemia due to type 2 diabetes [facility] 6. Ambulatory dysfunction 7. Hypomagnesemia 8. Left great toe amputee 9. Hx of right BKA 10. Chronic cough 11. Blind 12. DNR (do not resuscitate) Orders: My Order - Last 24 Hours Procedure Date/time Status Medication Management Message 01/02 110 Comple te Change Patient Status 01/01 5797 Active Consultants: None Code status: do not resuscitate Plan discussed with: patient, admitting alejandro keenan, collaborating , nurse, interdisc care team (MDR) Free Text [...] 2 DM with hyperglycemia, wi th termite control representative current use of insulin blindness- 12/31 Serum glucose 216. HbA1C ordered. Maintain nutritional support with ADA diet. Monitor FSBG ac hs. Home dose of Lantus Insulin 15u q hs; medium dose sliding scale insu osiris. 3. Controlled HTN- Admit BP 137/77; home dose of Losartan resumed. Monitor BP. 4. 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 H P, Obs, 80785, > 70 mins 01/01/22 1. Cellulitis Left [...] Type 2 DM with hyperglycemia, wi th nursing home current use of insulin, blindness- 12/31 Serum glucose 216. 01/01 YvY5K=61.1. Maintain nutritional support with ADA diet. Monitor [...] Lovenox DNR status per patient preference. Inpatient, 89117, > 35 mins Attestations Attestation needed: supervising physician at 1310 Electronically Signed by Ab Lucas MD on at 1422 RPT #:[id number] END OF REPORT 2021-12-31 17:43:00-00:00 [id number] [facility] PATIENT NAME: HARJINDER COLUNGA ADMIT DATE: 12/31/21 ACCOUNT NO: [id number] ROOM NO: [facility] AGE: 56 REPORT TYPE: eNVL VENOUS ULTRASOUND SEX: M DATE OF : 69 ADMITTING PHYSICIAN:Ab Lucas MD ATTENDING PHYSICIAN:Ab Lucas MD *[facility]* [address] [place] [address] Limited Lower Extremity Venous Duplex Evaluation Patient: Harjinder Colunga Study Date: 12/31/2021 BP: Location: [facility] URN: [id number] : 1965 Age: 56 Height: / Gender: M Weight: / BMI/BSA: / *Ordering Physician: * Jerry Roa *Interpreting Physician: * Baudilio Doyle MD *Quantitative Developer: * Cassidy Mcneal Indications: Pain. Study data: Limited lower extremity venous duple x evaluation. Left evaluation with grayscale 2D imaging, color Dopp ler imaging, and spectral Doppler analysis. Location: Emergency [facility]. Patient status: Inpatient. Patient room number: RM-C. [...] PATIENT NAME: HARJINDER COLUNGA 966 2021-12-31 15:08:00-00:00 [facility] ([facility]) History Physical - Adult REPORT#:[id number] REPORT STATUS: Signed DATE:12/31/21 TIME: 1508 PATIENT: HARJINDER COLUNGA UNIT #: [id number] ROOM/BED: [address] : [birth year] AGE: 56 SEX: M ATTEND: Zoya Lucas MD ADM AUTHOR: Chris Trotter HOSPICE CARE SALES CONSULTANT * ALL edits or amendments must be made on the [employer]/computer document * History of Present Illness HPI [...] mellitus, Hypertension, Dyslip idemia. Additional medical history: [place] in 2003, legally blind Past surgical history: [...] 15 UNITS SUBQ 5 08/06/21 (LANTUS) BEDTIME 1829 Strength: 100 UNIT/ML VIAL INSULIN LISPRO (HumaLOG) 5 UNITS SUBQ AC 5 07/20 12/10 Strength: 100 UNITS/ML VIAL 1829 metFORMIN (GLUCOPHAGE) 500 MG PO BID 60 2 Strength: 500 MG TAB 1829 CLINDAMYCIN HCL 300 MG PO Q6H 40 12/24/20 (CLEOCIN) 1637 Strength: 300 MG CAP INSULIN GLARGINE 0 UNITS SUBQ 10 09/30/21 (LANTUS) BEDTIME 1915 Strength: 100 UNIT/ML VIAL INSULIN LISPRO (HumaLOG) 5 UNITS SUBQ AC 10 04/1112/31/21 Strength: 100 UNITS/ML VIAL 191 1200 LOSARTAN (COZAAR) 50 MG PO DAILY 30 09/30/21 Strength: 50 MG TAB 191 metFORMIN (GLUCOPHAGE) 500 MG PO BID 60 2 Strength: 500 MG TAB 191 AMOXICILLIN/CLAV K 875 MG PO BID 10 09/30/21 (AUGMENTIN 875/125 MG) 1915 Strength: 875 MG-125 MG TAB IBUPROFEN (MOTRIN) 600 MG PO 30 09/30/21 Strength: 600 MG TAB QID PRN PRN PAIN 1915 Current Hospital Medications: Anti-Infective Agents Sig/Bita Start time Last Medication Dose Route Stop Time Status Admin Piperacillin Sod/ 3.375 G X1ED STA 12/31 1119 D Cr 12/31 Tazobactam Sod IV 12/31 1148 1132 (ZOSYN) Sodium Chloride 100 ML (SODIUM CHLORIDE 0.9%) Vancomycin HCl 1,000 MG X1ED STA 12/31 1119 DC r 12/31 (VANCOMYCIN HCL) IV 12/31 1218 1131 [...] Chloride 1,000 ML X1ED STA 12/31 1118 D C 12/31 (SODIUM CHLORIDE IV 12/31 1217 1130 [...] DVT Musculoskeletal: no muscle spasm, Right BKA Neuro/BANANA GRADER: alert, oriented X 3, normal speech, C VANESSA-XII grossly intact Perlita Coma Score: Copyright Sir Noble Guerra Copyright [...] (Auto) (25.0 - 55.0 %) 14.4 L Nicollet % (Auto) (0.0 - 10.0 %) 5.1 Eos % (Auto) (0.0 - 5.0 %) 1.6 Baso % (Auto) (0.0 - 1.0 %) 0.4 Neut # (Auto) (1.8 - 7.7 K/mm3) 6.46 Lymph # (Auto) (1.0 - 5.0 K/mm3) 1.19 Nicollet # (Auto) (0 - 0.8 K/mm3) 0.42 [...] appear edematous. Correlate with physical exam. Location: [facility] Impression By: Alma Rae MD Results: labs [...] 5. Hyperlipidemia due to type 2 diabetes [facility] 6. Ambulatory dysfunction 7. Hypomagnesemia 8. Left [...] 12/31 1609 Complete BASIC METABOLIC PANEL 12/31 1609 Active Case Management Consult 12/31 1609 Active Consultants: None Plan discussed with: patient, admitting physicia n, collaborating MD, nurse Code Status/Resusc. Discussion [...] 2 DM with hyperglycemia, wi th termite control representative current use of insulin blindness- 12/31 Serum glucose 216. HbA1C ordered. Maintain nutritional support with ADA diet. Monitor FSBG ac hs. Home dose of Lantus Insulin 15u q hs; medium dose sliding scale insu osiris. 3. Controlled HTN- Admit BP 137/77; home dose of Losartan resumed. Monitor BP. 4. 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 H P, Obs, 42333, > 70 mins Attestations Attestation needed: supervising physician at 1851 Electronically Signed by Ab Lucas MD on at 1422 RPT #:[id number] END OF REPORT 2021-12-31 11:20:00-00:00 [facility] ([facility]) EMERGENCY PROVIDER REPORT REPORT#:[id number] REPORT STATUS: Signed DATE:12/31/21 TIME: 112 PATIENT: HARJINDER COLUNGA UNIT #: [id number] ROOM/BED: AGE: 56 SEX: M PCP PHYS: No Primary or Family Ph ysician SERVICE AUTHOR: Jerry Roa MD * ALL edits or amendments must be made on the [employer] document * HPI-General Illness General Initial Greet [...] mellitus, Hypertension, Dyslip idemia. Additional Medical History MA in 2003 Past Surgical History: Reports: Amputation. [...] (Auto) (25.0 - 55.0 %) 14.4 L Nicollet % (Auto) (0.0 - 10.0 %) 5.1 Eos % (Auto) (0.0 - 5.0 %) 1.6 Baso % (Auto) (0.0 - 1.0 %) 0.4 Neut # (Auto) (1.8 - 7.7 K/mm3) 6.46 Lymph # (Auto) (1.0 - 5.0 K/mm3) 1.19 Nicollet # (Auto) (0 - 0.8 K/mm3) 0.42 [...] 4 MG X1ED STA 12/31 1118 DC / IV 12/31 1119 1133 Electrolytic, Caloric, And Glo Sig/Bita Start time Last Medication Dose Route Stop Time Status Admin Sodium Chloride 1,000 ML X1ED STA 12/31 1118 DC / IV 12/31 1217 1130 Hormones And Synthetic Substit Sig/Bita Start time Last Medication Dose Route Stop Time Status Admin Insulin Human Lispro 10 UNITS X1ED STA 12/31 1 327 DC SUBQ 12/31 1328 Patient Discharge Departure [...] Physician Name Ab Lucas MD Admit Physician Shift Engineer Physician Request Time 1330 Request Date 12/31/21 )( Admission Accepts Yes )( Accepted Time 1330 )( Accepted Date 12/31/21 Call Information will see patient, agrees with eval, agrees with plan Electronically Signed by Jerry Roa MD on 12/20 06/12 at 1330 RPT #:[id number] END OF REPORT 2021-10-07 07:00:00-00:00 [facility] ([facility]) EMERGENCY PROVIDER REPORT REPORT#:[id number] REPORT STATUS: Signed DATE:10/07/21 TIME: 0700 PATIENT: HARJINDER COLUNGA UNIT #: [id number] ROOM/BED: AGE: 56 SEX: M PCP PHYS: No Primary or Family Ph ysician SERVICE DT: AUTHOR: Jerry Roa MD * ALL edits or amendments must be made on the [employer]/computer document * HPI-General Illness General Initial Greet [...] mellitus, Hypertension, Dyslip idemia. Additional Medical History MA in 2003 Past Surgical History: Reports: Amputation. [...] Referrals Provider Referral: Gilbert Salinas DO Address: [address] [place] [address] [address] [place] [id number] Provider Referral: Rodriguez Salinas DO Follow-Up: 1-2 Days Address: [address] [place] [address] [address] [place] [address] Electronically Signed by Jerry Roa MD on 09/19 01/10 at 0705 RPT #:[id number] END OF REPORT 2021-08-06 17:50:24-00:00 You Can Quit Smoking: Brief Version *: quit smokingIndication:Nicotine dependenceStart: 15-Pkv-5323Klavosuulcm Type: Patient Education 2021-08-06 17:50:24-00:00 Smoking: Ways to Quit: quitting smokingIndication:Nicotine dependenceStart: [id number]-Ihd-[id number] Type: Patient Education 2021-08-06 16:40:00-00:00 [facility] ([facility]) EMERGENCY PROVIDER REPORT REPORT#:[id number] REPORT STATUS: Signed DATE:08/06/21 TIME: 1640 PATIENT: HARJINDER COLUNGA UNIT #: [id number] ROOM/BED: AGE: 56 SEX: M PCP PHYS: No Primary or Family Ph ysician SERVICE AUTHOR: Brennan Dupont MD * ALL edits or amendments must be made on the [employer]/computer document * HPI-General Illness Free Text HPI Notes Free Text HPI Notes This is a 56-year-old male h istory of diabetes, hypertension, who presents with hyperglycemia. Patient states he has been out of insulin since 07/22/2021. Patient denies fevers chills cough. States that he wants to be placed in a care home. General Initial Greet Date/Time 08/06/21 1518 Presentation [...] DAILY #30 TAB Prov: 07/01/20 DC: 08/06/21 6992 INSULIN GLARGINE (LANTUS) 15 UNITS SUBQ BEDTIME INSULIN GLARGINE (LANTUS) 15 UNITS SUBQ BEDTIME #5 Prov: 07/01/20 DC: 08/06/211828 INSULIN LISPRO (HumaLOG) 5 UNITS SUBQ AC INSULIN LISPRO (HumaLOG) 5 UNITS SUBQ AC #5 Prov: 07/01/20 DC: 08/06/211828 metFORMIN (GLUCOPHAGE) 500 MG PO BID metFORMIN (GLUCOPHAGE) 500 MG PO BID #60 TABS Prov: 12/24/20 DC: 08/06/211828 Calculated Suicide Risk (nurs) No risk Past Medical History: Reports: Diabetes mellitus (BS 168 MG/DL LAST PM ). Additional Medical History MA in 2003 Additional Surgical History None Family [...] normal limits Musculoskeletal: normal inspection, normal tone Neuro/BANANA GRADER: alert oriented x 3, nonfocal Skin: warm, [...] pH (5.0 - 8.0) 6.0 Ur Specific Salcha (1.001 - 1.035) 1.020 Urine Protein (Neg [...] 1545 IMPRESSION: No acute cardiopulmonary process. Location: [facility] Impression By: Jb - Ramu Ramos M.D. Point of Care [...] symptoms should prompt an immediate return to [facility] or the closest emergency department or a call to 911. at 1947 RPT #:[id number] END OF REPORT 2020-12-24 12:15:00-00:00 [facility] ([facility]) EMERGENCY PROVIDER REPORT REPORT#:[id number] REPORT STATUS: Signed DATE:12/24/20 TIME: 1215 PATIENT: HARJINDER COLUNGA UNIT #: [id number] ROOM/BED: AGE: 55 SEX: M PCP PHYS: No Primary or Family Ph ysician SERVICE AUTHOR: Jerry Roa MD * ALL edits or amendments must be made on the [employer]/computer document * HPI-Dizziness/Weakness General Initial Greet Date/Time [...] and squeezes hands appropriately upon command. Normal meqq-jk-fpxp eye mo vements on extraocular muscle testing. [...] MG/DL LAST PM ). Additional Medical History MA in 2003 Additional Surgical History None Family History: Reports: (father had C AD). Drug Use Denies recreational drugs Smoking status: Smoking status for patients 13 years old or old er: Never Smoker Other Social History Hx of substance and alcohol abuse Physical Exam Vital Signs Vital Signs First Documented: Result Date Time Pulse Ox 96 09/05 1206 B/P 134/72 09/05 1206 B/P Mean 92 09/05 1206 O2 Delivery Room air 09/05 1206 Temp 36.7 09/05 1206 Pulse 94 09/05 1206 Resp 16 09/05 1206 Last Documented: Result Date Time Pulse Ox 100 09/05 1350 B/P 160/72 09/05 1350 B/P Mean 101 09/05 1350 O2 Delivery Room air 09/05 1350 Pulse 79 09/05 1350 Resp 20 09/05 1350 Temp 36.7 09/05 1206 Review of Vital Signs Reviewed Focused [...] re bound MS Back Back Inspection NL, Non-tender, No [...] pH (5.0 - 8.0) 6.0 Ur Specific [place] (1.001 - 1.035) 1.020 Urine Protein (Neg [...] acute intracranial process. LOCATION: [facility] Impression By: Ashanti - Mayuri Duncan D.O. Point of Care Testing Pulse Oximetry Pulse Ox % 98 On: Room air Interpretation Interpreted by me, Pulse oximetr y normal Time 1218 ECG #1 Interpretation Time 1246 Interpreted by ED physician NL ECG Interpretation Normal rate, No STEMI, Nor mal axis, Normal intervals, Adequate tracing ECG Q-T-ST - [place] Non-specific ST changes Conduction/[place] RBBB - complete Re-Evaluation MDM Re-Evaluation/Progress #1 [...] B/P 134/72 12/24 1206 B/P Mean 92 12/24 1206 O2 Delivery Room air 12/24 1206 Temp 36.7 12/24 1206 Pulse 94 12/24 1206 Resp 16 12/24 1206 Last Documented: Result Date Time Pulse Ox 100 12/24 1350 B/P 160/72 12/24 1350 B/P Mean 101 12/24 1350 O2 Delivery Room air 12/24 1350 Pulse 79 09/ 1350 Resp 20 12/24 1350 Temp 36.7 12/24 1206 All vital signs available at the [...] (Uncertain Cause), ED Wound Care Referrals Narda Oshea: 1-2 Days [facility]: 1-2 Days Electronically Signed by Jerry Roa MD on 09/08 at 1644 RPT #:[id number] END OF REPORT 2020-08-14 18:14:00-00:00 [id number] [facility] [address] [place] [address] PATIENT NAME: HARJINDER COLUNGA ADMIT DATE: 06/28/20 ACCOUNT NO: [id number] ROOM NO: AmilcarOBS14 AGE: 55 REPORT TYPE: DISCHARGE SUMMARY SEX: M ADMITTING PHYSICIAN:Nathanael Laureano ATTENDING PHYSICIAN:Nathanael Laureano ADMISSION DATE: 06/28/2020 DISCHARGE DATE: 07/05/2020 BRIEF SUMMARY OF THE HOSPITAL COURSE: This is a 55-year-old male. The patient is legally blind, who moved from [place] a year ago and the patient states [...] stent to the right superficial femoral artery, EGG SEPARATOR atherectomy of t he right posterior tibial artery. The patient tolerated the procedure well . After discussing with ID, Dr. Velez, the patient was discharged home on 07/05/2020 with p.o. Keflex for 2 weeks. Dictated By: Nathanael Laureano MD WT: DS:ALEC// Conf#: [id number]/DID#: [id number] Authenticated by Nathanael Laureano MD O n 08/15/2020 05:53:32 PM at 1753 PATIENT NAME: HARJINDER COLUNGA 917 2020-07-11 12:12:00-00:00 [id number] [facility] Matias opaulo [facility] [address] [place] [address] PATIENT NAME: HARJINDER COLUNGA ADMIT DATE: 1 ACCOUNT NO: [id number] ROOM NO: [place] [address] AGE: 55 REPORT TYPE: OPERATIVE REPORT SEX: [...] Pedal access, right posterior tibial artery. 5. EGG SEPARATOR atherectomy and stent to the right superf icial femoral artery. 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 This was a difficult portion of the case. Stenting was with a 6 x 200 EverFlex. 6. EGG SEPARATOR atherectomy of the right posterior tibial artery [...] done from the groin sheat h. 9. EGG SEPARATOR of the right external iliac artery with [...] consent, the patient was taken to the recyclable materials collector and placed supine on the table. Both [...] maintained in therapeutic range. I attempted to cross the c hronic total occlusion of the SFA proximally. There was a nipple that was note d. I entered the sagittal plane was not able to get through right posterio r tibial artery from a pedal access and then I successfully gained access acr oss the GANG HEAD SAW OPERATOR. From there, the wire was flossed back [...] ei ther. Prior to removing the sheath, EGG SEPARATOR atherectomy of the left tibioperoneal trunk and [...] Gilbert Ventura III, MD WT: OP:ALEC/[email or web address]/NTS Conf#: [id number]/DID#: [id number] Authenticated by [email or web address] On 07/19 11:40:13 AM Electronically Signed by Gilbert Ventura III, MD o n 07/19/20 at 1140 PATIENT NAME: HARJINDER COLUNGA 917 2020-07-05 07:39:00-00:00 [facility]) Podiatry Progress Note REPORT#:[id number] REPORT STATUS: Signed DATE:07/05/20 TIME: 738 PATIENT: HARJINDER COLUNGA UNIT #: [id number] ROOM/BED: 1101-A : 67 AGE: 55 SEX: M ATTEND: Arpit Laureano [facility] AUTHOR: Mazin Sr DPVasquez R2 * ALL edits or amendments must be made on the seedchange/computer document * General VS/I O: Last Documented: [...] ABIs report monphasic waveforms d istal to HELPDESK MANAGER, stenosis on RIGHT and similar results on left below popliteal. vascular consulted, agr am results pending. WOund debridement performed at bedside 07/01/20 to beef y red bleeding tissue. No further debridement at this time. Dressed with DSD and aquacel. Pt may follow up with Dr. Marito Ray for out patient wound care. discussed with attending at 0742 RPT #:[id number] END OF REPORT 2020-07-05 07:39:00-00:00 [facility] Podiatry Progress Note REPORT#:[id number] REPORT STATUS: Signed DATE:07/05/20 TIME: 07 PATIENT: HARJINDER COLUNGA UNIT #: [id number] ROOM/BED: [address] : 67 AGE: 55 SEX: M ATTEND: Arpit Laureano ADM AUTHOR: Mazin Sr DPM R2 * ALL edits or amendments must be made on the seedchange/computer document * General VS/I O: Last Documented: Result Date Time Pulse Ox 98 07/05 720 B/P 120/76 07/05 720 B/P Mean 90.6 07/05 0621 Temp 37.1 07/05 720 Pulse 89 07/05 07 Resp 19 07/05 07 O2 Delivery Room air 07/04 2223 24 [...] ABIs report monphasic waveforms d istal to HELPDESK MANAGER, stenosis on RIGHT and similar results on left below popliteal. vascular consulted, agr am results pending. WOund debridement performed at bedside 07/01/20 to beef y red bleeding tissue. No further debridement at this time. Dressed with DSD and aquacel. Pt may follow up with Dr. Marito Ray for out patient wound care. discussed with attending at 0742 at 1135 RPT #:[id number] END OF REPORT 2020-07-04 10:47:00-00:00 [facility] ([facility]) Infectious Dis. Progress Note REPORT#:[id number] REPORT STATUS: Signed DATE:07/04/20 TIME: 1047 PATIENT: HARJINDER COLUNGA UNIT #: [id number] ROOM[facility]BED: [facility] : 67 AGE: 55 SEX: M ATTEND: [...] 0807 Losartan Potassium 50 MG DAILY 06/29 09 AC PO 07/29 0901 0845 Nicotine 14 MG DAILY 06/29 0900 AC 07/03 TRANSDERM 07/29 0901 0844 Insulin Human Lispro 5 UNITS AC 06/29 0730 AC 0 07/03 SUBQ 07/29 0731 1731 Insulin Glargine 15 UNITS BEDTIME 06/28 2100 AC 07/03 SUBQ 07/28 2101 2252 Clonidine HCl 0.1 MG Q6H PRN PRN 06/28 2014 AC 06/29 PO 07/29 2015 1747 Enoxaparin Sodium 40 MG Q24H 06/28 2014 AC 06/19 5 SUBQ 07/28 Dextrose/Water 25 ML ASDIR PRN 06/28 1914 AC IV 07/29 1915 Glucagon 1 MG ASDIR PRN 06/28 1914 AC IM 07/29 1915 Insulin Human Lispro See Dose ASDIR 06/28 1914 AC 07/03 Insts (3) SUBQ 07/29 1915 1731 Dose Instructions: (1)Perflutren Lipid Microsphere: DIRECTED [...] PMH uncontrolled D M, peripheral neuropathy, cataracts/blindness, MA in 2003, and tobacco abuse presented for [...] blood sugar control with patient who verbalized understandin g. 06-30-2020 WILL RE EVAL WOUNDS HOME SOON CHECK FINAL CX 07-01-2020 WOUND INFCTION , NOT DEEP >> PO ABX X 2 WEEKS GROUP B STREP KEFLEX X 2 WEEKS 07-02-2020 [facility] INTER[facility]ION PO KEFLEX 08-03-2020 PO KEFLEX [facility] SURGERY TODAY 08-04-2020 PO KEFEX WILL RE EVL AFTER RE VASCUARIZATION Electronically Signed by Anam Velez MD on 0 07/04/20 at 1049 RPT #:[id number] END OF REPORT 2020-07-04 08:03:00-00:00 [facility] Podiatry Progress Note REPORT#:[id number] REPORT STATUS: Signed DATE:07/04/20 TIME: 802 PATIENT: HARJINDER COLUNGA UNIT #: [id number] ROOM/BED: [address] : 67 AGE: 55 SEX: M ATTEND: Arpit Laureano ADM AUTHOR: Mazin Sr DPM R2 * ALL edits or amendments must be made on the seedchange/computer document * General VS/I O: Last Documented: Result Date Time Pulse Ox 100 07/04 0630 B/P 132/81 07/04 0730 B/P Mean 98.4 [...] ABIs report monphasic waveforms d istal to HELPDESK MANAGER, stenosis on RIGHT and similar results on left below popliteal. vascular consulted and they will do aortagram this week. WOund debridement performed at bedside 06/19 07/09 to beefy red bleeding tissue. No further debridement at this time. Volodymyr ssed with DSD and aquacel. Pt may follow up with Dr. Marito Ray for out patie nt wound care. discussed with attending at 0808 RPT #:[id number] END OF REPORT 2020-07-04 08:03:00-00:00 [facility] Podiatry Progress Note REPORT#:[id number] REPORT STATUS: Signed DATE:07/04/20 TIME: 802 PATIENT: HARJINDER COLUNGA UNIT #: [id number] ROOM/BED: [address] : 67 AGE: 55 SEX: M ATTEND: Arpit Laureano ADM AUTHOR: Mazin Sr DPM R2 * ALL edits or amendments must be made on the el [employer]/computer document * General VS/I O: Last Documented: Result Date Time Pulse Ox 100 07/04 729 B/P 132/81 07/04 0630 B/P Mean 98.4 07/04 729 Temp 36.9 07/04 0730 Pulse 70 07/04 729 Resp 19 07/04 729 O2 Delivery Room air 07/03 1509 PATIENT [...] ABIs report monphasic waveforms d istal to HELPDESK MANAGER, stenosis on RIGHT and similar results on [...] with attending at 0808 at 1135 RPT #:[id number] END OF REPORT 2020-07-04 08:00:00-00:00 [facility] Progress Note REPORT#:[id number] REPORT STATUS: Signed DATE:07/04/20 TIME: 0800 PATIENT: HARJINDER COLUNGA UNIT #: [id number] ROOM/BED: [address] : 67 AGE: 55 SEX: M ATTEND: Arpit Laureano ADM AUTHOR: Ovidio Hernandez * ALL edits or amendments must be made on the el Frazr/computer document * Subjective Chief Complaint: foot pain [...] ot wrapped) Musculoskeletal: decreased ROM (R foot) Neuro/BANANA GRADER: alert, oriented X 3 Ulcer: Type/cause: diabetic Duration: acute Location: foot Laterality: bilateral Stage: 1 Psychiatry: not homicidal, not suicidal, no [place] ucinations Results Findings/Data: Laboratory Tests 07/03 07/03 07/03 1846 1508 1129 Chemistry POC Glucose (74 - 106 MG/DL) 143 H 314 H 130 H Laboratory Tests 07/03 0846 Coagulation INR 1.1 PTT ([place]) (23.4 - 37.0 SECONDS) 27.1 PT Patient/Control Mix (9.2 - 12.1 SECONDS) 12. 2 H Laboratory Tests 07/03 0846 Serology SARS-CoV-2 [...] active user -counseled RE: cessation, continue nicotine pat h #Dispo: DC pending clinical recovery -hospital medicine will continue to follow at 2110 RPT #:[id number] END OF REPORT 2020-07-03 17:03:00-00:00 [facility] Hospitalist Progress Note REPORT#:[id number] REPORT STATUS: Signed DATE:07/03/20 TIME: 1703 PATIENT: HARJINDER COLUNGA UNIT #: [id number] ROOM/BED: [address] : 67 AGE: 55 SEX: M ATTEND: Arpit Laureano ADM AUTHOR: Tommy Andres HOSPICE CARE SALES CONSULTANT * ALL edits or amendments must be made on the seedchange/computer document * Subjective Chief Complaint: Foot pain [...] ot wrapped) Musculoskeletal: decreased ROM (R foot) Neuro/BANANA GRADER: alert, oriented X 3 Ulcer: Type/cause: diabetic [...] NP on 0 07/03/20 at 1704 RPT #:[id number] END OF REPORT 2020-07-03 17:02:00-00:00 [facility] ([facility]) Clinical Note REPORT#:[id number] REPORT STATUS: Signed DATE:07/03/20 TIME: 1702 PATIENT: HARJINDER COLUNGA UNIT #: [id number] [address] AGE: 55 SEX: M ATTEND: Arpit Laureano ADM AUTHOR: Tommy Andres NP * ALL edits or amendments must be made on the el ectronic/computer document * Clinical Note Note: Had a full discussion with t he patient about advanced directives. We had a long discussion regarding the patient's need for CPR and defibrillation in the case of cardiac arrest and mechanical ventilation and intubation in the case of respiratory arrest. Patient states that they und erstood the advance care planning terminology and description and would l juliana to be full code. Electronically Signed by Tommy Andres NP on 0 07/03/20 at 1703 RPT #:[id number] END OF REPORT 2020-07-03 15:12:00-00:00 [facility] ([facility]) Infectious Dis. Progress Note REPORT#:[id number] REPORT STATUS: Signed DATE:07/03/20 TIME: 151 PATIENT: HARJINDER COLUNGA UNIT #: [id number] ROOM/BED: [facility]-A : 67 AGE: 55 SEX: M ATTEND: Arpit Laureano ADM AUTHOR: Anam Velez MD * ALL edits or amendments must be made on the el Frazr/computer document * Subjective Chief Complaint: 06-30-2020 FEELS [...] 1420 Losartan Potassium 50 MG DAILY 06/29 0900 AC PO 07/29 0901 0845 Nicotine 14 MG DAILY 06/29 0900 AC 07/03 TRANSDERM 07/29 0901 0844 Insulin Human Lispro 5 UNITS AC 06/29 0730 AC 0 07/02 SUBQ 07/29 0731 1707 Insulin Glargine 15 UNITS BEDTIME 06/28 2099 AC 07/02 SUBQ 07/28 2101 2150 Clonidine [...] Lispro See Dose ASDIR 06/28 1914 AC 07/02 Insts (3) SUBQ 07/28 191 2151 Dose Instructions: (1)Perflutren Lipid Microsphere: DIRECTED [...] distal to the popli teal artery. Bilateral RADHA values compatible with moderate ar terial disease. [...] distal to the popli teal artery. Bilateral RADHA values compatible with moderate ar terial disease. Impression By: Alejandrina Wen MD Last Documented: Result Date Time Pulse Ox 98 07/03 1509 B/P 142/84 07/03 1509 B/P Mean 103.6 07/03 1509 O2 Delivery Room air 07/03 1509 Temp 36.8 07/03 1509 Pulse 94 07/03 1509 Resp 18 07/03 1509 Vital Signs Date Temp Pulse Resp B/P B/P Mean Pulse Ox FiO2 07/02-07/03 36.4-36.9 65-94 17-18 99-142/58-84 72.0-103.6 96-98 PATIENT [...] PMH uncontrolled D M, peripheral neuropathy, cataracts/blindness, MA in 2003, and tobacco abuse presented for [...] blood sugar control with patient who verbalized understandin g. 06-30-2020 WILL RE EVAL WOUNDS HOME SOON CHECK FINAL CX 07-01-2020 WOUND INFCTION , NOT DEEP >> PO ABX X 2 WEEKS GROUP B STREP KEFLEX X 2 WEEKS 07-02-2020 [facility] INTERVENTION PO KEFLEX 08-03-2020 PO KEFLEX [facility] SURGERY TODAY Electronically Signed by Anam Velez MD on 0 07/03/20 at 1515 [facility] #:[id number] END OF REPORT 2020-07-03 13:11:00-00:00 [id number] [facility] [address] [facility] [address] [place] [address] PATIENT NAME: HARJINDER COLUNGA ADMIT DATE: 06/28/20 ACCOUNT NO: [id number] ROOM NO: C.OBS14 AGE: 55 REPORT TYPE: STRESS ELECTROCARDIOGRAM SEX: [...] Wojciech Delgado MD WT: STRESS:C.CARLENE/JUAN MANUEL/LOTTIE Conf#: [id number]/DID#: [id number] Authenticated by Wojciech Delgado MD On 08/01/2020 08:04:19 AM PATIENT NAME: HARJINDER COLUNGA 917 Electronically Signed by Wojciech Delgado MD on 0 08/01/20 at 0804 PATIENT NAME: HARJINDER COLUNGA 917 2020-07-03 13:09:00-00:00 [id number] [facility] [address] [facility] [place] [address] PATIENT NAME: HARJINDER COLUNGA ADMIT DATE: 06/28/20 ACCOUNT NO: [id number] ROOM NO: C.1101 AGE: 55 REPORT TYPE: eECHOCARDIOGRAM REPORT. SEX: M ADMITTING PHYSICIAN:Nathanael Laureano ATTENDING PHYSICIAN:Nathanael Laureano *[facility]* [address] [place] [address] Transthoracic Echocardiogram Patient: Harjinder Colunga Study Date: 07/03/2020 BP: 124 / 76 Location: [facility] URN: [id number] 0917 : 1965 Age: 55 Height: 67 in / 170.2 cm Gender: M Weight: 179 .6 lb / 81.6 kg BMI/BSA: 28.2 kg/m 2 / 1.98 m 2 *Ordering Physician: * Ramu Araujo *Interpreting Physician: * Wojciech Delgado MD *Quantitative Developer: * Zoe Dubon RCS Indications: Pre-operative Cardiovascular Evalua tion. Study data: Transthoracic echocardiogram. Proced ure: Transthoracic echocardiography was performed. Images were obta ined using a Moment E95-1 cardiac ultrasound machine. Complete 2D, complet [...] normal in size. PATIENT NAME: HARJINDER COLUNGA 0917 Aorta: Aortic root: The aortic root is normal in size. Aortic valve: The valve is structurally normal. The valve is trileaflet. There is no evidence of stenosis. T here is no regurgitation. Mitral valve: The valve [...] PATIENT NAME: HARJINDER COLUNGA 917 2020-07-03 12:28:00-00:00 [facility] Cardiology Progress Note REPORT#:[id number] REPORT STATUS: Signed DATE:07/03/20 TIME: 1228 PATIENT: HARJINDER COLUNGA UNIT #: [id number] ROOM/BED: [address] : 67 AGE: 55 SEX: M ATTEND: Arpit Laureano ADM AUTHOR: Wojciech Delgado MD * ALL edits or amendments must be made on the seedchange/computer document * Subjective Chief Complaint: Seen and [...] % (Auto) (20.5 - 45.5 %) 22.3 [place] % (Auto) (5.5 - 11.7 %) 9.6 Eos % (Auto) (0.9 - 2.9 %) 2.1 Baso % (Auto) (0.2 - 1.0 %) 0.9 Neut # (Auto) (2.2 - 4.8 x10 3/uL) 3.63 Lymph # (Auto) (1.3 - 2.9 x10 3/uL) 1.25 L Nicol[place] # (Auto) (0.3 - 0.8 x10 3/uL) [...] 55 year old man with CAD s/p MA (did not present to [facility] for follow-up PCI), DM, smoker presenting fo r foot wounds, podiatry evaluating for further debridement. Cardiology consulted for pre-operative evaluatio n. 1. preoperative evaluation -intermediate risk - f/u TTE and Lexiscan nuclear stress today give n past MA and inability to exercise 2. DM Monitor blood sugar 3. Foot wounds negative for osteomyelitis on MRI Management per ID and podiatry 4. PVD Aortogram per vascular Monitor lower extremities. Electronically Signed by Wojciech Delgado MD on at 1231 RPT #:[id number] END OF REPORT 2020-07-03 12:28:00-00:00 [facility] Cardiology Progress Note REPORT#:[id number] REPORT STATUS: Signed DATE:07/03/20 TIME: 1228 PATIENT: HARJINDER COLUNGA UNIT #: [id number] ROOM/BED: [address] : 67 AGE: 55 SEX: M ATTEND: Arpit Laureano ADM AUTHOR: Wojciech Delgado MD * ALL edits or amendments must be made on the seedchange/[employer] document * See Addendum Subjective Chief Complaint: Seen and examined. No overnight events. Just came back from stress test this morning. Results pending. No chest pain or dyspnea overnight. Objective General VS/I O: Vital Signs: Date Time Temp Pulse Resp B/P B/P Pulse O2 O2 Flow FiO2 Mean Ox Delivery Rate 07/03 1130 [...] % (Auto) (20.5 - 45.5 %) 22.3 [place] % (Auto) (5.5 - 11.7 %) 9.6 Eos % (Auto) (0.9 - 2.9 %) 2.1 Baso % (Auto) (0.2 - 1.0 %) 0.9 Neut # (Auto) (2.2 - 4.8 x10 3/uL) 3.63 Lymph # (Auto) (1.3 - 2.9 x10 3/uL) 1.25 L [place] # (Auto) (0.3 - 0.8 x10 3/uL) [...] 55 year old man with CAD s/p MA (did not present to [facility] for follow-up PCI), DM, smoker presenting fo r foot wounds, podiatry evaluating for further debridement. Cardiology consulted for pre-operative evaluatio n. 1. preoperative evaluation -intermediate risk - f/u TTE and Lexiscan nuclear stress today give n past MA and inability to exercise 2. DM Monitor [...] Wojciech Delgado MD on at 1319 RPT #:[id number] END OF REPORT 2020-07-03 07:59:00-00:00 [facility] ([facility]) Podiatry Progress Note REPORT#:[id number] REPORT STATUS: Signed DATE:07/03/20 TIME: 758 PATIENT: HARJINDER COLUNGA UNIT #: [id number] ROOM/BED: [address] : 67 AGE: 55 SEX: M ATTEND: Arpit Laureano ADM AUTHOR: Mazin Sr DPM R2 * ALL edits or amendments must be made on the seedchange/computer document * General VS/I O: Last Documented: [...] ABIs report monphasic waveforms d istal to HELPDESK MANAGER, stenosis on RIGHT and similar results on left below popliteal. vascular consulted and they will do aortagram next week. WOund debridement performed at bedside 06/19 07/09 to beefy red bleeding tissue. No further debridement at this time. Volodymyr ssed with DSD and aquacel. discussed with attending at 0804 RPT #:[id number] END OF REPORT 2020-07-03 07:59:00-00:00 [facility] ([facility]) Podiatry Progress Note REPORT#:[id number] REPORT STATUS: Signed DATE:07/03/20 TIME: 758 PATIENT: HARJINDER COLUNGA UNIT #: [id number] ROOM/BED: [address] : 67 AGE: 55 SEX: M ATTEND: Divine Laureano ADM AUTHOR: Mazin Sr DPM R2 * ALL edits or amendments must be made on the seedchange/computer document * General VS/I O: Last Documented: [...] ABIs report monphasic waveforms d istal to HELPDESK MANAGER, stenosis on RIGHT and similar results on left below popliteal. vascular consulted and they will do aortagram next week. WOund debridement performed at bedside 06/19 07/09 to beefy red bleeding tissue. No further debridement at this time. Volodymyr ssed with DSD and aquacel. discussed with attending at 0804 at 4709 RPT #:[id number] END OF REPORT 2020-07-02 16:40:00-00:00 [facility] ([facility]) Int. Cardiology Consult Note REPORT#:[id number] REPORT STATUS: Signed DATE:07/02/20 TIME: 1640 PATIENT: HARJINDER COLUNGA UNIT #: [id number] ROOM/BED: 1101-A : 67 AGE: 55 SEX: M ATTEND: Arpit Laureano ADM AUTHOR: Ramu Araujo MD * ALL edits or amendments must be made on the el [employer]/computer document * History of Present Illness History of Present Illness Requesting clinician: Georgi Reason for consult: Pre-operative assessment Chief complaint: Foot wounds HPI: 55-year-old man, legally blind, DM, CAD with untreated MA in 2003 (patient did not follow-up to [...] MG/DL LAST PM ). Additional medical history: MA in 2003 Additional surgical history: None Family [...] Documented: Result Date Time Pulse Ox 97 07/02 1516 B/P 117/68 07/02 1516 B/P Mean 84.3 07/02 1516 O2 Delivery Room air 07/02 151 Temp 36.7 07/02 151 Pulse 76 07/02 1516 Resp 18 07/02 1516 PATIENT WEIGHT: Weight (lb): 180 Weight (oz): 6.04 Weight (kg): 81.818 General appearance: alert, awake Head/Eyes: atraumatic, clear cornea ENT: moist mucosal membranes, normal nose Neck: full range of motion, non-tender Cardiovascular: CV assessment: regular rate and rhythm, normal heart sounds Respiratory: clear to auscultation, no distress Abdomen: soft, non-tender Musculoskeletal: full range of motion Neuro/BANANA GRADER: alert, oriented X 3 Skin: foot wounds [...] 55 year old man with CAD s/p MA (did not present to [facility] for follow-up PCI), DM, smoker presenting fo r foot wounds, podiatry evaluating for further debridement. Cardiology consulted for pre-operative evaluatio n. 1. preoperative evaluation -TTE -nuclear stress given past MA and inability to e xercise 2. DM Monitor blood sugar 3. Foot wounds negative for osteomyelitis on MRI Management per ID and podiatry 4. PVD Aortogram per vascular Monitor lower extremities. at 1648 RPT #:[id number] END OF REPORT 2020-07-02 15:12:00-00:00 [facility] Progress Note REPORT#:[id number] REPORT STATUS: Signed DATE:07/02/20 TIME: 1512 PATIENT: HARJINDER COLUNGA UNIT #: [id number] ROOM/BED: [facility] : 67 AGE: 55 SEX: M ATTEND: Arpit Laureano ADM AUTHOR: Nathanael Laureano * ALL edits or amendments must be made on the el [employer]/computer document * Subjective Chief Complaint: Pain over [...] distal to the popli teal artery. Bilateral RADHA values compatible with moderate ar terial disease. [...] distal to the popli teal artery. Bilateral RADHA values compatible with moderate ar terial disease. [...] 97.9 69 16 95/58 70.1 95 07/01 191 98.1 77 16 118/75 89.1 99 Current Medications Sig/Bita Start time Last Medication Dose Route Stop Time Status Admin Cephalexin 500 MG Q6HR 07/01 1200 AC 07/02 PO 07/06 1159 1233 Losartan Potassium 50 MG DAILY 06/29 09 AC PO 07/29 0901 0912 Nicotine 14 MG DAILY 06/29 899 AC 07/02 TRANSDERM 07/29 0901 0912 Insulin Human Lispro 5 UNITS AC 06/29 0730 AC 0 07/02 SUBQ 07/29 0731 1233 Insulin Glargine 15 UNITS BEDTIME 06/28 2099 AC 07/01 SUBQ 07/28 Clonidine HCl 0.1 MG Q6H PRN PRN 06/28 2014 AC 06/29 PO 07/29 2015 174 Enoxaparin Sodium 40 MG Q24H 06/28 2014 AC 06/19 3 SUBQ 07/28 2016 2037 Dextrose/Water 25 ML ASDIR PRN 06/28 1914 AC IV 07/29 1915 Glucagon 1 MG ASDIR PRN 06/28 1914 AC IM 07/29 1915 Insulin Human Lispro See Dose ASDIR 06/28 1914 AC 07/02 Insts (1) SUBQ 07/28 191 [...] 97.9 69 16 95/58 70.1 95 07/01 1917 98.1 77 16 118/75 89.1 99 PATIENT [...] of care Pain control at 2240 RPT #:[id number] END OF REPORT 2020-07-02 11:55:00-00:00 [facility] Vascular Surgery Progress Note REPORT#:[id number] REPORT STATUS: Signed DATE:07/02/20 TIME: 1155 PATIENT: HARJINDER COLUNGA UNIT #: [id number] ROOM/BED: [address] : [birth year] AGE: 55 SEX: M ATTEND: Arpit Laureano ADM AUTHOR: Enrrique Zuñiga MD R2 * ALL edits or amendments must be made on the seedchange/computer document * Subjective Comments: Patient reports unchanged [...] Do ppler study -: R posterior tibialis Neuro/BANANA GRADER: alert, oriented X 3, normal speech Skin: [...] uncontr olled DM, peripheral neuropathy, cataracts/blindness , MA in 2003, and tobacco abuse presented with [...] onboard. Electronically Signed by Enrrique Zuñiga MD on 07/02 at 1202 RPT #:[id number] END OF REPORT 2020-07-02 11:55:00-00:00 [facility]) Vascular Surgery Progress Note REPORT#:[id number] REPORT STATUS: Signed DATE:07/02/20 TIME: 1154 PATIENT: HARJINDER COLUNGA UNIT #: [id number] ROOM/BED: [address] : [birth year] AGE: 55 SEX: M ATTEND: Arpit Laureano ADM AUTHOR: Enrrique Zuñiga MD R2 * ALL edits or amendments must be made on the seedchange/computer document * Enrrique Zuñiga 07/02/20 1155: Subjective [...] Do ppler study -: R posterior tibialis Neuro/BANANA GRADER: alert, oriented X 3, normal speech Skin: [...] uncontr olled DM, peripheral neuropathy, cataracts/blindness , MA in 2003, and tobacco abuse presented with [...] MD R2 on 07/02 at 1202 RPT #:[id number] END OF REPORT 2020-07-02 11:55:00-00:00 [facility] Vascular Surgery Progress Note REPORT#:[id number] REPORT STATUS: Signed DATE:07/02/20 TIME: 1155 PATIENT: HARJINDER COLUNGA UNIT #: [id number] ROOM/BED: [address] : 69 AGE: 55 SEX: M ATTEND: Arpit Laureano ADM AUTHOR: Enrrique Zuñiga MD R2 * ALL edits or amendments must be made on the seedchange/computer document * Enrrique Zuñiga 07/02/20 1155: Subjective [...] Do ppler study -: R posterior tibialis Neuro/BANANA GRADER: alert, oriented X 3, normal speech Skin: [...] uncontr olled DM, peripheral neuropathy, cataracts/blindness , MA in 2003, and tobacco abuse presented with [...] on 07/02 at 1202 at 1024 RPT #:[id number] END OF REPORT 2020-07-02 09:49:00-00:00 [facility]) Infectious Dis. Progress Note REPORT#:[id number] REPORT STATUS: Signed DATE:07/02/20 TIME: 948 PATIENT: HARJINDER COLUNGA UNIT #: [id number] ROOM/BED: [facility] : 69 AGE: 55 SEX: M ATTEND: Arpit Laureano ADM AUTHOR: Anam Velez MD * ALL edits or amendments must be made on the seedchange/computer document * Subjective Chief Complaint: 06-30-2020 FEELS [...] 0555 Losartan Potassium 50 MG DAILY 06/29 899 AC PO 07/29 09 0912 Nicotine 14 MG DAILY 06/29 09 AC 07/02 TRANSDERM 07/29 0901 0912 Insulin Human Lispro 5 UNITS AC 06/29 0730 AC 0 07/02 SUBQ 07/29 0731 0912 Insulin Glargine 15 UNITS BEDTIME 06/28 2099 AC 07/01 SUBQ 07/28 Linezolid 600 MG Q12HR 06/28 2099 DC 07/01 PO 07/12 2058 0901 Cefepime HCl 1 GM Q8H 06/28 2029 DC 07/01 Sterile Water 10 ML IV 07/12 Clonidine [...] ULTRASOUND - DUP LE ART PETER 06/30 173 Report Impression - Status: SIGNED Entered: 06/30/20201809 IMPRESSION: Increased differential peak systolic velocity fo r the right common femoral and proximal superficial femoral arterie s with monophasic waveforms distal to the common femoral artery in dicative of significant stenosis between these arteries. Left infrapopliteal artery monophasic waveforms consistent with significant arterial disease distal to the popli teal artery. Bilateral RADHA values compatible with moderate ar terial disease. [...] distal to the popli teal artery. Bilateral RADHA values compatible with moderate ar terial disease. Impression By: Alejandrina Wen MD Last Documented: Result Date Time Pulse Ox 96 07/02 0749 B/P 125/81 07/02 0749 B/P Mean 95.6 07/02 0749 Temp 36.5 07/02 0749 Pulse 75 07/02 0749 Resp 18 07/02 0749 O2 Delivery Room air 06/28 1458 Vital Signs Date Temp Pulse Resp B/P B/P Mean Pulse Ox FiO2 /-07/02 36.5-36.7 69-91 14-18 95-125/58-81 70.1-95.6 95-100 PATIENT WEIGHT: Weight (lb): [...] PMH uncontrolled D M, peripheral neuropathy, cataracts/blindness, MA in 2003, and tobacco abuse presented for [...] control with patient who verbalized jevon mckeon 06-30-2020 WILL RE EVAL WOUNDS HOME SOON CHECK FINAL CX 07-01-2020 WOUND INFCTION , NOT DEEP >> PO ABX X 2 WEEKS GROUP B STREP KEFLEX X 2 WEEKS 07-02-2020 AWAITING [facility] INTERVENTION PO KEFLEX Electronically Signed by Anam Velez MD on 0 07/02/20 at 0951 RPT #:[id number] END OF REPORT 2020-07-02 07:54:00-00:00 [facility]) Podiatry Progress Note REPORT#:[id number] REPORT STATUS: Signed DATE:07/02/20 TIME: 075 PATIENT: HARJINDER COLUNGA UNIT #: [id number] [address] [birth year] AGE: 55 SEX: M ATTEND: Arpit Laureano ADM AUTHOR: Mazin Sr DPM R2 * ALL edits or amendments must be made on the seedchange/computer document * General VS/I O: Last Documented: [...] ABIs report monphasic waveforms d istal to HELPDESK MANAGER, stenosis on RIGHT and similar results on left below popliteal. vascular consulted and they will do aortagram next week. WOund debridement performed at bedside 06/19 07/09 to beefy red bleeding tissue. Additional, deeper debridement needed in OR later this week. Dressed with DSD and betadine discussed with attending at 0801 RPT #:[id number] END OF REPORT 2020-07-02 07:54:00-00:00 [facility] Podiatry Progress Note REPORT#:[id number] REPORT STATUS: Signed DATE:07/02/20 TIME: 0754 PATIENT: HARJINDER COLUNGA UNIT #: [id number] ROOM/BED: [address] : 69 AGE: 55 SEX: M ATTEND: Arpit Laureano ADM AUTHOR: Mazin Sr DPM R2 * ALL edits or amendments must be made on the seedchange/[employer] document * General VS/I O: Last Documented: [...] ABIs report monphasic waveforms d istal to HELPDESK MANAGER, stenosis on RIGHT and similar results on left below popliteal. vascular consulted and they will do aortagram next week. WOund debridement performed at bedside 06/19 07/09 to beefy red bleeding tissue. Additional, deeper debridement needed in OR later this week. Dressed with DSD and betadine discussed with attending at 0801 at 113 RPT #:[id number] END OF REPORT 2020-07-01 19:59:00-00:00 [facility] ([facility]) Vascular Surgery Consult Note REPORT#:[id number] REPORT STATUS: Signed DATE:07/01/20 TIME: 1958 PATIENT: HARJINDER COLUNGA UNIT #: [id number] ROOM/BED: [address] : 69 AGE: 55 SEX: M ATTEND: Arpit Laureano ADM AUTHOR: Eliot Vale MD R1 * ALL edits or amendments must be made on the el ectronic/computer document * History of Present Illness Requesting Clinician: Mazin Sr MD Reason for consult: PAD , nonhealing ulcers Chief complaint: nonhealing ulcers, LLE claudication HPI: 55 year old with PMH uncontr olled DM, peripheral neuropathy, cataracts/blindness , MA in 2003, and tobacco ab use presented [...] distal to t he popliteal artery. Bilateral RADHA values compatible with moderate arterial disease. Vasacular surgery consutled for evaluation. History - Adult longitudinal Past medical history: Reports: Diabetes mellitus (BS 168 MG/DL LAST PM ). Additional medical history: MA in 2003 Additional surgical history: None Drug [...] Do ppler study -: R posterior tibialis. Neuro/BANANA GRADER: alert, oriented X 3 Skin: dry, normal [...] distal to the popli teal artery. Bilateral RADHA values compatible with moderate ar terial disease Diagnosis, Assessment Plan Free Text A P: 55 year old with PMH uncontr olled DM, peripheral neuropathy, cataracts/blindness , MA in 2003, and tobacco abuse presented with f or foot ulcers and PAD AFVSS b/l foot ulcers worse on lef t side but pain and claudication worse on the right side. labs an imaging reviewed plan: will discuss with attending plans for artogram n ext week continue medical managment podiatry and infectious disease onboard. at 2013 RPT #:[id number] END OF REPORT 2020-07-01 19:59:00-00:00 [facility]) Vascular Surgery Consult Note REPORT#:[id number] REPORT STATUS: Signed DATE:07/01/20 TIME: 1958 PATIENT: HARJINDER COLUNGA UNIT #: [id number] ROOM/BED: [address] : 69 AGE: 55 SEX: M ATTEND: Arpit Laureano [facility] AUTHOR: Eliot Vale MD R1 * ALL edits or amendments must be made on the el [employer]/computer document * Eliot Vale 07/01/201958: History of Present Illness Requesting Clinician: Mazin Sr MD Reason for consult: PAD , nonhealing ulcers Chief complaint: nonhealing ulcers, LLE claudication HPI: 55 year old with PMH uncontr olled DM, peripheral neuropathy, cataracts/blindness , MA in 2003, and tobacco ab use presented [...] distal to t he popliteal artery. Bilateral RADHA values compatible with moderate arterial disease. Vasacular surgery consutled for evaluation. History - Adult longitudinal Past medical history: Reports: Diabetes mellitus (BS 168 MG/DL LAST PM ). Additional medical history: MA in 2003 Additional surgical history: None Drug [...] Do ppler study -: R posterior tibialis. Neuro/BANANA GRADER: alert, oriented X 3 Skin: dry, normal [...] distal to the popli teal artery. Bilateral RADHA values compatible with moderate ar terial disease Diagnosis, Assessment Plan Free Text A P: 55 year old with PMH uncontr olled DM, peripheral neuropathy, cataracts/blindness , MA in 2003, and tobacco abuse presented with [...] ervention planned. appreciate consult. at 2013 RPT #:[id number] END OF REPORT 2020-07-01 19:59:00-00:00 [facility] ([facility]) Vascular Surgery Consult Note REPORT#:[id number] REPORT STATUS: Signed DATE:07/01/20 TIME: 1958 PATIENT: HARJINDER COLUNGA UNIT #: [id number] ROOM/BED: C.[address]BS14-A : 69 AGE: 55 SEX: M ATTEND: Arpit Laureano ADM AUTHOR: Eliot Vale MD R1 * ALL edits or amendments must be made on the seedchange/computer document * Eliot Vale 07/01/201958: History of Present Illness Requesting Clinician: Mazin Sr MD Reason for consult: PAD , nonhealing ulcers Chief complaint: nonhealing ulcers, LLE claudication HPI: 55 year old with PMH uncontr olled DM, peripheral neuropathy, cataracts/blindness , MA in 2003, and tobacco ab use presented [...] distal to t he popliteal artery. Bilateral RADHA values compatible with moderate arterial disease. Vasacular surgery consutled for evaluation. History - Adult longitudinal Past medical history: Reports: Diabetes mellitus (BS 168 MG/DL LAST PM ). Additional medical history: MA in 2003 Additional surgical history: None Drug [...] Do ppler study -: R posterior tibialis. Neuro/BANANA GRADER: alert, oriented X 3 Skin: dry, normal color Ulcer: Type/cause: diabetic Duration: acute Location: foot Laterality: bilateral Stage: 1 Findings/Data: Laboratory Tests 07/01 07/01 07/01 1752 1158 075 Chemistry POC Glucose (74 - 106 MG/DL) [...] distal to the popli teal artery. Bilateral RADHA values compatible with moderate ar terial disease Diagnosis, Assessment Plan Free Text A P: 55 year old with PMH uncontr olled DM, peripheral neuropathy, cataracts/blindness , MA in 2003, and tobacco abuse presented with [...] ervention planned. appreciate consult. at 2014 at [facility] RPT #:[id number] END OF REPORT 2020-07-01 17:50:00-00:00 [facility] Progress Note REPORT#:[id number] REPORT STATUS: Signed DATE:07/01/20 TIME: 1749 PATIENT: HARJINDER COLUNGA UNIT #: [id number] [address] [birth year] AGE: 55 SEX: M ATTEND: Arpit Laureano ADM AUTHOR: Nathanael Laureano * ALL edits or amendments must be made on the seedchange/computer document * Subjective Chief Complaint: Pain over [...] distal to the popli teal artery. Bilateral RADHA values compatible with moderate ar terial disease. [...] distal to the popli teal artery. Bilateral RADHA values compatible with moderate ar terial disease. [...] 98.1 75 16 110/72 84.6 95 06/30 194 97.7 84 16 127/81 96.5 98 Current Medications Sig/Bita Start time Last Medication Dose Route Stop Time Status Admin Cephalexin 500 MG Q6HR 07/01 1200 AC 07/01 PO 07/06 1159 1408 Losartan Potassium 50 MG DAILY 06/29 899 AC PO 07/29 0901 0901 Nicotine 14 MG DAILY 06/29 09 AC 07/01 TRANSDERM 07/29 0901 0902 Insulin Human Lispro 5 UNITS AC 06/29 0630 AC 0 07/01 SUBQ 07/29 730 1410 Insulin Glargine 15 UNITS BEDTIME 06/28 2099 [...] 98.1 91 18 119/76 90.6 100 07/01 830 97.3 76 16 107/70 82.7 98 07/01 [...] of care Pain control at 2023 RPT #:[id number] END OF REPORT 2020-07-01 11:04:00-00:00 [facility] Infectious Dis. Progress Note REPORT#:[id number] REPORT STATUS: Signed DATE:07/01/20 TIME: 1103 PATIENT: HARJINDER COLUNGA UNIT #: [id number] [address] [birth year] AGE: 55 SEX: M ATTEND: Arpit Laureano ADM AUTHOR: Anam Velez MD * ALL edits or amendments must be made on the el ectronic/computer document * Subjective Chief Complaint: 06-30-2020 FEELS FINE PODIATRY NOTED CX + STREPTOCOCCI 07-01-2020 HAD BED SIDE DEBRIDMENT DONE CX NOTED WOUNDS NOTED EDEUCATED ABOUT FOOT CARE ABD FOOT WEAR Objective General VS/I O: Microbiology: 06/28 1857 FOOT: Wound Culture - COMP BETA-HEMOLYTIC STREP GROUP B 06/28 1857 FOOT: Gram Stain - COMP 06/28 1528 BLOOD: Blood Culture - RES 06/28 152 BLOOD: Blood Culture - RES Current Medications Sig/Bita Start time Last Medication Dose Route Stop Time Status Admin Losartan Potassium 50 MG DAILY 06/29 899 AC PO 07/29 900 0901 Nicotine 14 MG DAILY 06/29 899 AC 07/01 TRANSDERM 07/29 09 0902 Insulin Human Lispro 5 UNITS AC 06/29 0730 AC 0 06/30 SUBQ 07/29 0731 1841 Insulin Glargine 15 UNITS BEDTIME 06/28 2099 AC 06/30 SUBQ 07/28 Linezolid 600 MG Q12HR 06/28 2099 AC 07/01 PO 07/12 2058 09 Cefepime HCl 1 GM Q8H 06/28 2029 AC 07/01 Sterile Water 10 ML IV 07/124 Clonidine HCl 0.1 MG Q6H PRN PRN 06/28 2014 AC 06/29 PO 07/29 2015 174 Enoxaparin Sodium 40 MG Q24H 06/28 2014 AC 06/19 2 SUBQ 07/28 Dextrose/Water 25 ML ASDIR PRN 06/28 191 AC IV 07/28 191 Glucagon 1 MG ASDIR PRN 06/28 191 AC IM 07/28 191 Insulin Human Lispro See Dose ASDIR 06/28 191 AC 06/30 Insts (1) SUBQ 07/28 191 [...] in trinsic foot musculature. Impression By: [email or web address] Guero Bai MD ULTRASOUND - DUP LE ART [...] distal to the popli teal artery. Bilateral RADHA values compatible with moderate ar terial disease. Impression By: MerRHNeo Wen MD ULTRASOUND - DOP ART 1-2 [...] distal to the popli teal artery. Bilateral RADHA values compatible with moderate ar terial disease. [...] PMH uncontrolled D M, peripheral neuropathy, cataracts/blindness, [place] in 2003, and tobacco abuse presented for [...] control with patient who verbalized jevon mckeon 06-30-2020 WILL RE EVAL WOUNDS HOME SOON CHECK FINAL CX 07-01-2020 WOUND INFCTION , NOT DEEP >> PO ABX X 2 WEEKS GROUP B STREP KEFLEX X 2 WEEKS Electronically Signed by Anam Velez MD on 0 07/01/20 at 1107 RPT #:[id number] END OF REPORT 2020-07-01 09:46:00-00:00 [facility]) Podiatry Progress Note REPORT#:[id number] REPORT STATUS: Signed DATE:07/01/20 TIME: 945 PATIENT: HARJINDER COLUNGA UNIT #: [id number] ROOM/BED: [address] : 69 AGE: 55 SEX: M ATTEND: Arpit Laureano [facility] AUTHOR: Mazin Sr DPM R2 * ALL edits or amendments must be made on the seedchange/computer document * General VS/I O: Last Documented: Result Date Time Pulse Ox 98 07/01 0831 B/P 107/70 07/01 0831 B/P Mean 82.7 07/01 0831 Temp 36.3 07/01 0831 Pulse 76 07/01 0831 Resp 16 07/01 0831 O2 Delivery Room air 06/28 1458 24 [...] ABIs report monphasic waveforms d istal to HELPDESK MANAGER, stenosis on RIGHT and similar results on left below popliteal. vascular consul yana. WOund debridement performed to beefy red bleeding tissue. Dressed with aq uacell and DSD. Procedure 07/01/20 Pre-op dx: peter foot diabetic wounds Post op dx: same Procedure: wound debridement of peter feet location: bedside Surgeon: Dr. Marito Ray Construction Site Manager: Dr. Mazin Sr Complications: none EBL: < [...] peter. discussed with attending at 1008 RPT #:[id number] END OF REPORT 2020-07-01 09:46:00-00:00 [facility] Podiatry Progress Note REPORT#:[id number] REPORT STATUS: Signed DATE:07/01/20 TIME: 945 PATIENT: HARJINDER COLUNGA UNIT #: [id number] ROOM/BED: [address] : 69 AGE: 55 SEX: M ATTEND: Divine Laureano ADM AUTHOR: Mazin Sr DPM R2 * ALL edits or amendments must be made on the el [employer]ronic/computer document * General VS/I O: Last Documented: [...] ABIs report monphasic waveforms d istal to HELPDESK MANAGER, stenosis on RIGHT and similar results on left below popliteal. vascular consul yana. WOund debridement performed to beefy red bleeding tissue. Dressed with aq uacell and DSD. Procedure 07/01/20 Pre-op dx: peter foot diabetic wounds Post op dx: same Procedure: wound debridement of peter feet location: bedside Surgeon: Dr. Marito Ray Construction Site Manager: Dr. Mazin Sr Complications: none EBL: < [...] peter. discussed with attending at 1008 at 1133 RPT #:[id number] END OF REPORT 2020-06-30 22:00:00-00:00 [facility] REPORT#:[id number] REPORT STATUS: Signed DATE:06/30/20 TIME: 2199 PATIENT: HARJINDER COLUNGA UNIT #: [id number] ROOM/BED: [address] : 69 AGE: 55 SEX: M ATTEND: Divine Laureano ADM AUTHOR: Nathanael Laureano * ALL edits or amendments must be made on the seedchange/computer document * Subjective Chief Complaint: Pain over [...] distal to the popli teal artery. Bilateral RADHA values compatible with moderate ar terial disease. [...] distal to the popli teal artery. Bilateral RADHA values compatible with moderate ar terial disease. Impression By: [email or web address] Guero Wen MD Recent Impressions: RADIOLOGY - XR CHEST 1 V 06/28 1530 Report Impression - Status: SIGNED Entered: 06/28/2020 1539 IMPRESSION: No acute abnormality identified. Impression By: [email or web address] Guero Linda M.D. RADIOLOGY - XR FOOT 3 [...] ULTRASOUND - DUP LE ART PETER 06/30 173 Report Impression - Status: SIGNED Entered: 06/30/2020 1810 IMPRESSION: Increased differential peak systolic velocity fo r the right common femoral and proximal superficial femoral arterie s with monophasic waveforms distal to the common femoral artery in dicative of significant stenosis between these arteries. Left infrapopliteal artery monophasic waveforms consistent with significant arterial disease distal to the popli teal artery. Bilateral RADHA values compatible with moderate ar terial disease. Impression By: Alejandrina Wen MD ULTRASOUND - DOP ART 1-2 LEVELS PETER 06/30 1731 Report Impression - Status: SIGNED Entered: 06/30/2020 1810 IMPRESSION: Increased differential peak systolic velocity fo r the right common femoral and proximal superficial femoral arterie s with monophasic waveforms distal to the common femoral artery in dicative of significant stenosis between these arteries. Left infrapopliteal artery monophasic waveforms consistent with significant arterial disease distal to the popli teal artery. Bilateral RADHA values compatible with moderate ar terial disease. [...] 900 1019 Nicotine 14 MG DAILY 06/29 899 AC 06/30 TRANSDERM 07/29 0901 1023 Insulin Human Lispro 5 UNITS AC 06/29 0730 AC 0 06/30 SUBQ 07/29 0731 1841 Insulin Glargine 15 UNITS BEDTIME 06/28 2099 AC 06/30 SUBQ 07/28 Linezolid 600 MG Q12HR 06/28 2100 AC 06/30 PO 07/12 Cefepime HCl 1 [...] of care Pain control at 1504 RPT #:[id number] END OF REPORT 2020-06-30 18:01:00-00:00 [facility] ([facility]) Infectious Dis. Progress Note REPORT#:[id number] REPORT STATUS: Signed DATE:06/30/20 TIME: 180 PATIENT: HARJINDER COLUNGA UNIT #: [id number] ROOM/BED: [address] : 69 AGE: 55 SEX: M [...] - RES BETA-HEMOLYTIC STREP GROUP B 06/28 1857 FOOT: Gram Stain - RES 06/28 152 BLOOD: Blood Culture - RES 06/28 152 BLOOD: Blood Culture - RES Current Medications Sig/Bita Start time Last Medication Dose Route Stop Time Status Admin Losartan Potassium 50 MG DAILY 06/29 0900 AC PO 07/29 0901 1019 Nicotine 14 MG DAILY 06/29 0900 AC 06/30 TRANSDERM 07/29 0901 1023 Insulin Human Lispro 5 UNITS AC 06/29 0730 AC 0 06/30 SUBQ 07/29 0731 1320 Insulin Glargine 15 UNITS BEDTIME 06/28 2100 AC 06/29 SUBQ 07/28 2101 2106 Linezolid 600 MG Q12HR 06/28 2100 AC 06/30 PO 07/12 205 1019 Cefepime HCl 1 GM Q8H 06/28 2030 AC 06/30 Sterile Water 10 ML IV 07/12 2028 1321 Clonidine HCl 0.1 MG Q6H PRN PRN 06/28 2014 AC 06/29 PO 07/28 2016 1747 Enoxaparin Sodium 40 MG Q24H 06/28 2014 AC 06/19 1 SUBQ 07/28 2016 2005 Dextrose/Water 25 ML ASDIR PRN 06/28 1914 AC IV 07/29 1915 Glucagon 1 MG ASDIR PRN 06/28 1914 AC IM 07/28 191 Insulin Human Lispro See Dose ASDIR 06/28 1914 AC 06/30 Insts (1) SUBQ 07/28 191 1320 Dose Instructions: (1)Insulin Human Lispro: LOW [...] PMH uncontrolled D M, peripheral neuropathy, cataracts/blindness, [place] in 2003, and tobacco abuse presented for [...] control with patient who verbalized jevon mckeon 06-30-2020 WILL RE EVAL WOUNDS HOME SOON CHECK FINAL CX Electronically Signed by Anam Velez MD on 0 06/30/20 at 1804 RPT #:[id number] END OF REPORT 2020-06-30 08:46:00-00:00 [facility] ([facility]) Podiatry Progress Note REPORT#:[id number] REPORT STATUS: Signed DATE:06/30/20 TIME: 0846 PATIENT: HARJINDER COLUNGA UNIT #: [id number] ROOM/BED: [address] : 69 AGE: 55 SEX: M ATTEND: Arpit Laureano ADM AUTHOR: Mazin Sr DPM R2 * ALL edits or amendments must be made on the el [employer]/computer document * General VS/I O: Last Documented: Result Date Time Pulse Ox 97 06/30 07 B/P 136/82 06/30 0725 B/P Mean 99.8 06/30 0725 Temp 36.9 06/30 0725 Pulse 79 06/30 0725 Resp 17 06/30 07 O2 Delivery Room air 06/28 1458 24 [...] wet-to-dry. discussed with attending at 0853 at 1135 RPT #:[id number] END OF REPORT 2020-06-30 08:46:00-00:00 [facility] REPORT#:[id number] REPORT STATUS: Signed DATE:06/30/20 TIME: 08 PATIENT: HARJINDER COLUNGA UNIT #: [id number] ROOM/BED: [address] : 69 AGE: 55 SEX: M ATTEND: Divine Laureano ADM AUTHOR: Mazin Sr DPM R2 * ALL edits or amendments must be made on the el [employer]/computer document * General VS/I O: Last Documented: Result Date Time Pulse Ox 97 06/30 724 B/P 136/82 06/30 724 B/P Mean 99.8 06/30 724 Temp 36.9 06/30 07 Pulse 79 06/30 07 Resp 17 06/30 07 O2 Delivery Room air 06/28 1458 24 [...] wet-to-dry. discussed with attending at 0853 RPT #:[id number] END OF REPORT 2020-06-29 23:21:00-00:00 [facility] REPORT#:[id number] REPORT STATUS: Signed DATE:06/29/20 TIME: 2320 PATIENT: HARJINDER COLUNGA UNIT #: [id number] ROOM/BED: [address] : 69 AGE: 55 SEX: M ATTEND: Arpit Laureano ADM AUTHOR: Nathanael Laureano * ALL edits or amendments must be made on the [employer]/computer document * Subjective Chief Complaint: Pain over the bilateral foot Nausea Patient reports: Yes: pain. Comments: Allergies Allergy Severity Reaction Updated Coded No Known Allergies 10/08/19 Laboratory Tests 06/29/20 0845: [Embedded Image Not Available] 06/29/20 0631: [Embedded Image Not Available] 06/28/20 1527: [Embedded Image Not Available] Laboratory Tests: 06/29 06/29 06/29 06/29 06/29 1946 1517 1142 0821 0798 Chemistry Sodium (137 - 145 mmol/L) 134 [...] % (Auto) (20.5 - 45.5 %) 24.1 Nicollet % (Auto) (5.5 - 11.7 %) 7.7 Eos % (Auto) (0.9 - 2.9 %) 1.5 Baso % (Auto) (0.2 - 1.0 %) 0.5 Neut # (Auto) (2.2 - 4.8 x10 3/uL) 4.30 Lymph # (Auto) (1.3 - 2.9 x10 3/uL) 1.57 Nicollet # (Auto) (0.3 - 0.8 x10 3/uL) [...] Mild peroneus longus tenosynovitis. Impression By: Alex Bia MD [facility] - MRI LOW [...] Impression By: Alex Bai MD Hematology: 06/29 630 Hematology Hgb (14.0 - 18.0 g/dL) 13.2 L Hct (37.0 - 49.0 %) 39.0 Plt Count (130 - 400 x10 3/uL) 421 H Chemistry: 06/29 0845 Chemistry Creatinine (0.7 - 1.3 mg/dL) 0.7 [...] IMPRESSION: No acute abnormality identified. Impression By: MerPEMolly - Richard Linda M.D. RADIOLOGY - XR [...] foot musculature. Impression By: Alex Bai MD Vital Signs: Date Time Temp [...] DAILY 06/29 899 AC PO 07/29 900 0846 Nicotine 14 MG DAILY 06/29 0800 AC 06/29 TRANSDERM 07/29 0901 0847 Insulin Human Lispro 5 UNITS AC 06/29 0730 AC 0 06/29 SUBQ 07/29 0731 1719 Insulin Glargine 15 UNITS BEDTIME 06/28 2100 AC 06/29 SUBQ 07/28 210 210 Linezolid 600 MG Q12HR 06/28 2100 AC 06/29 PO 07/12 2058 210 Sodium Chloride 5 ML Q12HR 06/28 2100 DC 06/28 IV 06/290 212 Cefepime HCl 1 GM Q8H 06/28 2029 AC 06/29 Sterile Water 10 ML IV 07/12 Clonidine HCl 0.1 MG Q6H PRN PRN 06/28 2014 AC 06/29 PO 07/28 2016 1747 Enoxaparin Sodium 40 MG Q24H 06/28 2014 AC 06/19 1 SUBQ 07/29 2015 2005 Dextrose/Water 25 ML ASDIR PRN 06/28 1914 AC IV 07/29 1915 Glucagon 1 MG ASDIR PRN 06/28 1914 AC IM 07/29 1915 Insulin Human Lispro See Dose ASDIR 06/28 1914 AC 06/29 Insts (1) SUBQ 07/28 191 1720 Sodium Chloride 5 ML ASDIR PRN [...] of care Pain control at 1942 RPT #:[id number] END OF REPORT 2020-06-29 09:35:00-00:00 [facility] ([facility]) Infect Disease Consult Note REPORT#:[id number] REPORT STATUS: Signed DATE:06/29/20 TIME: 934 PATIENT: HARJINDER COLUNGA UNIT #: [id number] ROOM/BED: [address] : [birth year] AGE: 55 SEX: M ATTEND: Arpit Laureano [facility] AUTHOR: Harjinder Garner MD R1 * ALL edits or amendments must be made on the el [employer]/computer document * History of Present Illness HPI: 55yoWM w/ PMH uncontrolled D M, peripheral neuropathy, cataracts/blindness, MA in 2003, and tobacco abuse presented for [...] MG/DL LAST PM ). Additional medical history: MA in 2003 Additional surgical history: None Drug [...] Result Date Time Pulse Ox 97 06/29 0729 B/P 142/88 06/29 0729 B/P Mean 105.8 06/29 0729 Temp 98.6 06/29 0729 Pulse 75 06/29 0729 Resp 16 06/29 07 O2 Delivery Room air 06/28 1458 Vital [...] to the BL leg above the ankle. Neuro/BANANA GRADER: alert, oriented X 3 Results Findings/Data: Laboratory [...] (20.5 - 45.5 %) 24.1 17.3 L Nicollet % (Auto) (5.5 - 11.7 %) 7.7 6.0 Eos % (Auto) (0.9 - 2.9 %) 1.5 0.9 Baso % (Auto) (0.2 - 1.0 %) 0.5 0.7 Neut # (Auto) (2.2 - 4.8 x10 3/uL) 4.30 5.68 H Lymph # (Auto) (1.3 - 2.9 x10 3/uL) 1.57 1.32 Nicollet # (Auto) (0.3 - 0.8 x10 3/uL) [...] pH (5.0 - 8.0) 5.0 Ur Specific Salcha (<1.030) 1.029 Urine Protein (Negative mg/dL) 30 [...] the detection of o steomyelitis. Impression By: [email or web address] - Michael Bai MD Diagnosis, Assessment Plan Free Text DxA P Notes Free text DxA P notes: ASSESSMENT 55yoWM w/ PMH uncontrolled D M, peripheral neuropathy, cataracts/blindness, MA in 2003, and tobacco abuse presented for [...] control with patient who verbalized ellain g. Attestations Attestation needed: teaching physician at 1003 RPT #:[id number] END OF REPORT 2020-06-29 09:35:00-00:00 [facility] Infect Disease Consult Note REPORT#:[id number] REPORT STATUS: Signed DATE:06/29/20 TIME: 934 PATIENT: HARJINDER COLUNGA UNIT #: [id number] ROOM/BED: [address] : 67 AGE: 55 SEX: M ATTEND: Arpit Laureano ADM AUTHOR: Harjinder Garner MD R1 * ALL edits or amendments must be made on the el [employer]/computer document * Harjinder Garner 06/29/20 0935: History of Present Illness HPI: 55yoWM w/ PMH uncontrolled D M, peripheral neuropathy, cataracts/blindness, MA in 2003, and tobacco abuse presented for [...] MG/DL LAST PM ). Additional medical history: MA in 2003 Additional surgical history: None Drug [...] Result Date Time Pulse Ox 97 06/29 07 B/P 142/88 06/29 07 B/P Mean 105.8 06/29 07 Temp 98.6 06/29 0729 Pulse 75 06/29 0729 Resp 16 06/29 07 O2 Delivery Room air 06/28 1458 Vital [...] to the BL leg above the ankle. Neuro/BANANA GRADER: alert, oriented X 3 Results Findings/Data: Laboratory [...] (20.5 - 45.5 %) 24.1 17.3 L Nicollet % (Auto) (5.5 - 11.7 %) 7.7 6.0 Eos % (Auto) (0.9 - 2.9 %) 1.5 0.9 Baso % (Auto) (0.2 - 1.0 %) 0.5 0.7 Neut # (Auto) (2.2 - 4.8 x10 3/uL) 4.30 5.68 H Lymph # (Auto) (1.3 - 2.9 x10 3/uL) 1.57 1.32 Nicollet # (Auto) (0.3 - 0.8 x10 3/uL) [...] pH (5.0 - 8.0) 5.0 Ur Specific Salcha (<1.030) 1.029 Urine Protein (Negative mg/dL) 30 [...] Impression By: [email or web address] - Michael Bai MD Diagnosis, Assessment Plan Free Text DxA P Notes Free text DxA P notes: ASSESSMENT 55yoWM w/ PMH uncontrolled D M, peripheral neuropathy, cataracts/blindness, MA in 2003, and tobacco abuse presented for [...] blood sugar control with patient who verbalized understandin g. Attestations Attestation needed: teaching physician Anam Velez [...] MD on 0 06/29/20 at 1505 RPT #:[id number] END OF REPORT 2020-06-29 07:33:00-00:00 [facility] ([facility]) Podiatry Progress Note REPORT#:[id number] REPORT STATUS: Signed DATE:06/29/20 TIME: 732 PATIENT: HARJINDER COLUNGA UNIT #: [id number] ROOM[facility]BED: [facility] : 67 AGE: 55 SEX: M ATTEND: Arpit Laureano ADM AUTHOR: RembertoMazin mora DPM R2 * ALL edits or amendments must be made on the el [employer]/computer document * General VS/I O: Last Documented: Result Date Time Pulse Ox 97 06/29 728 B/P 142/88 06/29 728 B/P Mean 105.8 06/29 728 Temp 37.0 06/29 728 Pulse 75 06/29 728 Resp 16 06/29 728 O2 Delivery Room air 06/28 1458 24 hour I O ending at 0700: 06/29 0706/28 1900 Intake Total Output Total Balance Patient [...] with Betadine wet-to-dry. discussed with attending at 0784 at 1135 RPT #:[id number] END OF REPORT 2020-06-29 07:33:00-00:00 [facility] ([facility]) Podiatry Progress Note REPORT#:[id number] REPORT STATUS: Signed DATE:06/29/20 TIME: 732 PATIENT: HARJINDER COLUNGA UNIT #: [id number] ROOM/BED: [facility]-A : 67 AGE: 55 SEX: M ATTEND: Arpit Laureano [facility] AUTHOR: Mazin Sr DPM R2 * ALL edits or amendments must be made on the [employer]/computer document * General VS/I O: Last Documented: Result Date Time Pulse Ox 97 06/29 728 B/P 142/88 06/29 728 B/P Mean 105.8 06/29 728 Temp 37.0 06/29 728 Pulse 75 06/29 728 Resp 16 06/29 07 O2 Delivery Room air 06/28 1458 24 [...] Betadine wet-to-dry. discussed with attending at 0738 [facility] #:[id number] END OF REPORT 2020-06-28 20:01:00-00:00 [id number] [facility] opaulo [facility] [address] [place] [address] PATIENT NAME: HARJINDER COLUNGA ADMIT DATE: 06/28/20 ACCOUNT NO: [id number] ROOM NO: [facility] AGE: 55 REPORT TYPE: HISTORY AND PHYSICAL SEX: M ADMITTING PHYSICIAN:Nathanael Laureano ATTENDING PHYSICIAN:Nathanael Laureano ADMISSION DATE: 06/28/2020 CHIEF COMPLAINT: The patient was brought in with wound over the left foot. HISTORY OF PRESENT ILLNESS: This is a 55 -year-old male. The patient is legally blind, who moved from [facility] a a year ago and patient states he has not seen and established any primary care doctor and gets his medications through the ER. The patient states that he i s not sure how long he has the wound, it is going on for the past few months and he has not seen a fo ot doctor. Wound was found by the caregiver. [...] plan. Dictated By: Nathanael Laureano MD WT: HP:ALEC/THU./NTS Conf#: [id number]/DID#: [id number] Authenticated by Nathanael Laureano MD O n 06/29/2020 09:55:13 PM at 2155 PATIENT NAME: HARJINDER COLUNGA 917 2020-06-28 18:47:00-00:00 [facility] History Physical - Adult REPORT#:[id number] REPORT STATUS: Signed DATE:06/28/20 TIME: 1846 PATIENT: HARJINDER COLUNGA UNIT #: [id number] ROOM/BED: [place] [address] : 69 AGE: 55 SEX: M ATTEND: Divine Laureano AUTHOR: Nathanael Laureano * ALL edits or amendments must be made on the el [employer]/computer document * History Past medical history: Reports: Diabetes mellitus (BS 168 MG/DL LAST PM ). Additional medical history: MA in 2003 Additional surgical history: None Drug use: Denies recreational drugs Smoking status: Smoking status for patients 13 years old or old er: Current every day smoker Other social history: Hx of substance and alcoho l abuse Medication/Allergy-Vaccine Hx Allergies: Coded Allergies: No Known Allergies (10/08/19) at 1937 RPT #:[id number] END OF REPORT 2020-06-28 18:38:00-00:00 [id number] [facility] [address] [address] [place] [address] PATIENT NAME: HARJIDNER COLUNGA ADMIT DATE: 06/28/20 ACCOUNT NO: [id number] ROOM NO: [facility] AGE: 55 REPORT TYPE: CONSULTATION SEX: M [...] for Marito Ray DPM WT: CON:ALEC/JOSELIN/LOTTIE Conf#: [id number]/DID#: [id number] PATIENT NAME: HARJINDER COLUNGA 917 Authenticated by Mazin Sr DPM On 06/19 07:09:44 AM Authenticated by Marito Ray DPM On 07/05/2020 11:31:10 AM at 1131 at 1131 PATIENT NAME: HARJINDER COLUNGA 917 2020-06-28 16:47:00-00:[address]) EMERGENCY PROVIDER REPORT REPORT#:[id number] REPORT STATUS: Signed DATE:06/28/20 TIME: 1646 PATIENT: HARJINDER COLUNGA UNIT #: [id number] ROOM/BED: [address]A AGE: 55 SEX: M PCP PHYS: No Primary or Family Ph ysician SERVICE AUTHOR: Giovany Landa MD R1 * ALL edits or amendments must be made on the el [employer]/computer document * Giovany Landa V 06/28/20 1647: [...] are a. General Initial Greet Date/Time 06/28/20 0373 Presentation Chief Complaint Diabetic foot wound Hx [...] MG/DL LAST PM ). Additional Medical History MA in 2003 Additional Surgical History None Drug [...] L foot ulcer on ball of foot [id number] wit h scattered ulcer throughout the foot. [...] Statement Laboratory studies reviewed and considered in e medical decision-making. Imaging Statement Radiographic studies [...] podiatry. Consultation Consultation Referral/Consult Name Obed Lopez DPM Material Damage Adjuster Called Podiatry Requested Call Time 1657 Requested Call Date 06/28/20 Call Returned Call returned Call Returned Time 1657 Call Returned Date 06/28/20 Material Damage Adjuster Will see patient Patient Discharge Departure Disposition Decision Admit Admit Physician Name Nathanael Laureano Rasheed 06/28/20 1716: Physical Exam Vital Signs Vital Signs First Documented: Result Date Time O2 Delivery Room air 06/28 1458 Pulse Ox 97 /10 1503 Temp 37.4 /10 1503 Pulse 109 03/10 1503 Resp 18 06/28 1503 B/P 129/81 /10 1504 B/P Mean 97.0 06/28 1504 Last Documented: Result Date Time B/P 129/81 06/28 1504 B/P Mean 97.0 /10 1504 Pulse 106 03/10 1504 Resp 18 06/28 1504 Pulse Ox [...] (Auto) (20.5 - 45.5 %) 17.3 L Nicollet % (Auto) (5.5 - 11.7 %) 6.0 Eos % (Auto) (0.9 - 2.9 %) 0.9 Baso % (Auto) (0.2 - 1.0 %) 0.7 Neut # (Auto) (2.2 - 4.8 x10 3/uL) 5.68 H Lymph # (Auto) (1.3 - 2.9 x10 3/uL) 1.32 Nicollet # (Auto) (0.3 - 0.8 x10 3/uL) 0.46 Eos # (Auto) (0.0 - 0.2 x10 3/uL) 0.07 Baso # (Auto) (0.0 - 0.1 x10 3/uL) 0.05 Immature Gran % (0.0 - 2.0 %) 0.4 Nucleated RBC % (0 - 1.0 %) 0.0 Urines Urine Color (Yellow) Yellow Urine Appearance (Clear) Clear Urine pH (5.0 - 8.0) 5.0 Ur Specific Salcha (<1.030) 1.029 Urine Protein (Negative mg/dL) 30 [...] Pulse Ox 97 03/10 1503 Temp 37.4 10 1503 Pulse 109 03/10 1503 Resp 18 / 1503 B/P 129/81 03/10 1504 B/P Mean 97.0 10 1504 Last Documented: Result Date Time B/P 129/81 03/10 1504 B/P Mean 97.0 03/10 1504 Pulse [...] Muñoz MD Admit Physician Hospitalist Request Time 1748 [...] Landa MD R1 on at 2008 RPT #:[id number] END OF REPORT 2020-06-28 16:47:00-00:00 [facility] ([facility]) EMERGENCY PROVIDER REPORT REPORT#:[id number] REPORT STATUS: Signed DATE:06/28/20 TIME: 1646 PATIENT: HARJINDER COLUNGA UNIT #: [id number] ROOM/BED: [facility]-A AGE: 55 SEX: M PCP PHYS: No Primary or Family Ph ysician SERVICE AUTHOR: Giovany Landa MD R1 * ALL edits or amendments must be made on the [employer]/computer document * Giovany Landa V 06/28/201646: HPI-General [...] are a. General Initial Greet Date/Time 06/28/20 1457 Presentation Chief Complaint Diabetic foot wound Hx [...] MG/DL LAST PM ). Additional Medical History MA in 2003 Additional Surgical History None Drug [...] L foot ulcer on ball of foot [id number] wit h scattered ulcer throughout the foot. [...] (Auto) (20.5 - 45.5 %) 17.3 L Nicollet % (Auto) (5.5 - 11.7 %) 6.0 Eos % (Auto) (0.9 - 2.9 %) 0.9 Baso % (Auto) (0.2 - 1.0 %) 0.7 Neut # (Auto) (2.2 - 4.8 x10 3/uL) 5.68 H Lymph # (Auto) (1.3 - 2.9 x10 3/uL) 1.32 Nicollet # (Auto) (0.3 - 0.8 x10 3/uL) 0.46 Eos # (Auto) (0.0 - 0.2 x10 3/uL) 0.07 Baso # (Auto) (0.0 - 0.1 x10 3/uL) 0.05 Immature Gran % (0.0 - 2.0 %) 0.4 Nucleated RBC % (0 - 1.0 %) 0.0 Urines Urine Color (Yellow) Yellow Urine Appearance (Clear) Clear Urine pH (5.0 - 8.0) 5.0 Ur Specific Salcha (<1.030) 1.029 Urine Protein (Negative mg/dL) 30 [...] 152 Blood Culture - RECD BLOOD 06/28 1527 [...] 0540 Consultation Consultation Referral/Consult Name Obed Lopez DPVasquez Material Damage Adjuster Called Podiatry Requested Call Time 1657 Requested Call Date 06/28/20 Call Returned Call returned Call Returned Time 1657 Call Returned Date 06/28/20 Material Damage Adjuster Will see patient Patient Discharge Departure Disposition [...] 03/10 1504 B/P Mean 97.0 03/10 1504 Pulse 106 03/10 1504 Resp 18 03/10 1504 Pulse Ox 97 03/10 1503 Temp [...] 03/10 1504 B/P Mean 97.0 03/10 1504 Pulse 106 03/10 1504 Resp 18 03/10 1504 Pulse Ox 97 03/10 1503 Temp [...] Muñoz MD Admit Physician Hospitalist Request Time 1748 [...] Landa MD R1 on at 2008 RPT #:[id number] END OF REPORT 2020-06-28 16:47:00-00:00 [facility] ([facility]) EMERGENCY PROVIDER REPORT REPORT#:[id number] REPORT STATUS: Signed DATE:06/28/20 TIME: 1646 PATIENT: HARJINDER COLUNGA UNIT #: [id number] ROOM/BED: [address] AGE: 55 SEX: M PCP PHYS: No Primary or Family Ph ysician SERVICE AUTHOR: Giovany Landa MD R1 * ALL edits or amendments must be made on the el [employer]/computer document * Giovany Landa V 06/28/201646: HPI-General Illness Free Text HPI Notes Free Text HPI Notes 55M PMH diabetes, smoking pr esents with left foot wound. He has neuropathy. The woman he is living with told him he had blood on his socks. He took off the socks and she noticed the wounds. The pa tient says he recently switched shoes. He has an ulcer on the ball of the foot. The patient denies any fevers, chills, nausea, vomitting. He denies any pain to the are a. General Initial Greet Date/Time 06/28/20 1457 Presentation Chief Complaint Diabetic foot wound Hx [...] 1 TAB PO Q12H #14 TABS Prov: 11/08/20 CEPHALEXIN (KEFLEX) 500 MG PO Q6H CEPHALEXIN [...] MG/DL LAST PM ). Additional Medical History MA in 2003 Additional Surgical History None Drug [...] Back Atraumatic, Inspection NL, Full range of motion Lymphatic Lymphatic No gross adenopathy, No cervical saw opathy MS Upper Extrem Upper Extremity/MS Atraumatic, Inspection NL, F ull range of motion MS Wrist/Hand Wrist/Hand Atraumatic, Inspection NL, Full rang e of motion MS Lower Extrem Lower Ext/Pelvis/MS Atraumatic, Inspection NL, Full range of motion MS Ankle/Foot Text/Dict Notes L foot ulcer on ball of foot [id number] wit h scattered ulcer throughout the foot. [...] 1527: [Embedded Image Not Available] Laboratory Tests: 06/287 1527 1527 Chemistry Sodium (137 - 145 [...] (Auto) (20.5 - 45.5 %) 17.3 L Nicollet % (Auto) (5.5 - 11.7 %) 6.0 Eos % (Auto) (0.9 - 2.9 %) 0.9 Baso % (Auto) (0.2 - 1.0 %) 0.7 Neut # (Auto) (2.2 - 4.8 x10 3/uL) 5.68 H Lymph # (Auto) (1.3 - 2.9 x10 3/uL) 1.32 Nicollet # (Auto) (0.3 - 0.8 x10 3/uL) 0.46 Eos # (Auto) (0.0 - 0.2 x10 3/uL) 0.07 Baso # (Auto) (0.0 - 0.1 x10 3/uL) 0.05 Immature Gran % (0.0 - 2.0 %) 0.4 Nucleated RBC % (0 - 1.0 %) 0.0 Urines Urine Color (Yellow) Yellow Urine Appearance (Clear) Clear Urine pH (5.0 - 8.0) 5.0 Ur Specific Salcha (<1.030) 1.029 Urine Protein (Negative mg/dL) 30 [...] 152 Blood Culture - RECD BLOOD 06/28 1527 [...] Statement Laboratory studies reviewed and considered in e medical decision-making. Imaging Statement Radiographic studies [...] Consultation Consultation Referral/Consult Name Obed Lopez DPM Material Damage Adjuster Called Podiatry Requested Call Time 1657 Requested Call Date 06/28/20 Call Returned Call returned Call Returned Time 1657 Call Returned Date 06/28/20 Material Damage Adjuster Will see patient Patient Discharge Departure Disposition Decision Admit Admit Physician Name Nathanael Laureano Rasheed 06/28/20 1716: Physical Exam Vital Signs Vital Signs First Documented: Result Date Time O2 Delivery Room air 06/28 1458 Pulse Ox 97 06/28 1503 Temp 37.4 03/10 1503 Pulse 109 03/10 1503 Resp 18 03/10 1503 B/P 129/81 03/10 1504 B/P Mean 97.0 03/10 1504 Last Documented: Result Date Time B/P 129/81 03/10 1504 B/P Mean 97.0 03/10 1504 Pulse 106 03/10 1504 Resp 18 03/10 1504 Pulse Ox 97 03/10 1503 Temp 37.4 03/10 1503 O2 Delivery Room air 06/28 1458 Physical Exam MS Ankle/Foot Text/Dict Notes left foot ulcer. some r foot ulcer. Re-Evaluation MDM Free Text MDM Notes Free Text MDM Notes xray did not show osteo. Patient Discharge Departure Vital Signs/Condition Vital Signs First Documented: Result Date Time O2 Delivery Room air / 1458 Pulse Ox 97 03/10 1503 Temp 37.4 03/10 1503 Pulse 109 03/10 1503 Resp 18 03/10 1503 B/P 129/81 03/10 1504 B/P Mean 97.0 03/10 1504 Last Documented: Result Date Time B/P 129/81 03/10 1504 B/P Mean 97.0 03/10 1504 Pulse 106 03/10 1504 Resp 18 03/10 1504 Pulse Ox 97 03/10 1503 Temp [...] Muñoz MD Admit Physician Hospitalist Request Time 1748 [...] Dolan DO on 03/11 at 0035 RPT #:[id number] END OF REPORT 2020-06-28 15:11:00-00:00 [facility]) EMERGENCY PROVIDER REPORT REPORT#:[id number] REPORT STATUS: Signed DATE:06/28/20 TIME: 151 PATIENT: HARJINDER COLUNGA UNIT #: [id number] [address] AGE: 55 SEX: M PCP PHYS: No Primary or Family P hysician SERVICE AUTHOR: Mi Ellis HOSPICE CARE SALES CONSULTANT * ALL edits or amendments must be made on the el [employer]/computer document * Provider in Triage - Adult Provider in Triage Initial Greet Date/Time 06/28/20 7 Greet Note I have greeted and performed [...] MG/DL LAST PM ). Additional Medical History MA in 2003 Additional Surgical History None Patient History FATHER, . Family History: Heart disease MOTHER Family History: Diabetes Family History: Heart disease Drug Use Denies recreational drugs Smoking status: Smoking status for patients 13 years old or old er: Current every day smoker Other Social History Hx of substance and alcohol abuse Electronically Signed by Mi Ellis NP on at 1512 at 2344 RPT #:[id number] END OF REPORT 2020-06-28 15:11:00-00:00 [facility] ([facility]) EMERGENCY PROVIDER REPORT REPORT#:[id number] REPORT STATUS: Signed DATE:06/28/20 TIME: 1510 PATIENT: HARJINDER COLUNGA UNIT #: [id number] ROOM/BED: AGE: 55 SEX: M PCP PHYS: No Primary or Family P hysician SERVICE DT: AUTHOR: Mi Ellis NP * ALL edits or amendments must be made on the [employer]/computer document * Provider in Triage - Adult Provider in Triage Initial Greet Date/Time 06/28/20 0176 Greet Note I have greeted and performed [...] MG/DL LAST PM ). Additional Medical History MA in 2003 Additional Surgical History None Patient History FATHER, . Family History: Heart disease MOTHER Family History: Diabetes Family History: Heart disease Drug Use Denies recreational drugs Smoking status: Smoking status for patients 13 years old or old er: Current every day smoker Other Social History Hx of substance and alcohol abuse Electronically Signed by Mi Ellis NP on at 1512 RPT #:[id number] END OF REPORT 2020-02-27 14:13:00-00:00 [facility] ([facility]) EMERGENCY PROVIDER REPORT REPORT#:[id number] REPORT STATUS: Signed DATE:02/27/20 TIME: 1413 PATIENT: HARJINDER COLUNGA UNIT #: [id number] ROOM/BED: AGE: 54 SEX: M PCP PHYS: No Primary or Family Ph ysician SERVICE AUTHOR: Rod Cerda NP * ALL edits or amendments must be made on the [employer] document * HPI-Rash/Abscess/Cellulitis General Confirmed Patient Yes [...] MG/DL LAST PM ). Additional Medical History MA in 2003 Additional Surgical History None Drug [...] Documented: Result Date Time Pulse Ox 98 02/27 1600 B/P 125/80 02/27 1600 B/P Mean 95 02/27 1600 O2 Delivery Room air 02/27 1600 Temp 36.7 02/27 1600 Pulse 89 02/26 1600 Resp 16 02/27 1600 Review of Vital Signs Reviewed Focused [...] 10-25 MG Recent Impressions: ULTRASOUND - US EXTREM NON [facility] 02/26 1518 Report Impression - Status: SIGNED Entered: 02/27/2020 1550 IMPRESSION: 1. Soft tissue edema without discrete dominant f luid collection or cystic or solid mass lesion. Impression By: [email or web address] - Donaldo Tang M.D. Lab Statement Laboratory studies reviewed and considered in [facility] medical decision-making. Re-Evaluation MDM Re-Evaluation/Progress Re-Evaluation/Progress [...] WITH MEALS Patient Instructions ED Cellulitis Referrals [facility] Departure Forms WORK/SCHOOL EXCUSE VARIABLE Discharge Note [...] symptoms should prompt an immediate return to [facility] or the closest emergency department or a call to 911. at 0750 RPT #:[id number] END OF REPORT 2020-02-27 14:13:00-00:00 [facility] ([facility]) EMERGENCY PROVIDER REPORT REPORT#:[id number] REPORT STATUS: Signed DATE:02/27/20 TIME: 1412 PATIENT: HARJINDER COLUNGA UNIT #: [id number] ROOM/BED: AGE: 54 SEX: M PCP PHYS: No Primary or Family Ph ysician SERVICE AUTHOR: Rod Cerda NP * ALL edits or amendments must be made on the el [employer]/computer document * Rod Cerda 02/27/20 1413: HPI-Rash/Abscess/Cellulitis General Confirmed Patient Yes [...] MG/DL LAST PM ). Additional Medical History MA in 2003 Additional Surgical History None Drug [...] Room air 02/26 1358 Temp 98.1 02/26 135 Pulse 96 02/26 1358 Resp 16 02/26 [...] 10-25 MG Recent Impressions: ULTRASOUND - US [facility] 02/26 1518 Report Impression - Status: SIGNED Entered: 02/27/2020 4830 IMPRESSION: 1. Soft tissue edema without discrete dominant f luid collection or cystic or solid mass lesion. Impression By: [email or web address] - Donaldo Tang M.D. Lab Statement Laboratory studies reviewed and considered in [facility] medical decision-making. Re-Evaluation MDM Re-Evaluation/Progress Re-Evaluation/Progress [...] Insulin Human Lispro 10 UNIT X1ED STA 11/08 144 3 DC 02/26 SUBQ 02/26 1444 [...] WITH MEALS Patient Instructions ED Cellulitis Referrals [facility] Departure Forms WORK/SCHOOL EXCUSE VARIABLE Discharge Note [...] symptoms should prompt an immediate return to [facility] or the closest emergency department or a call to 1. René Peres 03/03/20 0310: HPI-Rash/Abscess/Cellulitis General Initial [...] were reviewe d. I agree with this PA/extrusion die repair manager findings, exam and plan. at 0750 at 0310 RPT #:[id number] END OF REPORT 2019-10-08 12:43:00-00:00 [facility] ([facility]) EMERGENCY PROVIDER REPORT REPORT#:[id number] REPORT STATUS: Signed DATE:10/08/19 TIME: 1243 PATIENT: HARJINDER COLUNGA UNIT #: [id number] ROOM/BED: AGE: 54 SEX: M PCP PHYS: No Primary or Family Ph ysician SERVICE AUTHOR: Brennan Dupont MD * ALL edits or amendments must be made on the el [employer]/computer document * HPI-General Illness Free Text HPI Notes Free Text HPI Notes 54-year-old male history of diabetes, heart dise ase, who presents with right- sided flank pain. Patient states flank pain is b een worsening over last few days and thinks it is his kidneys. Patient state s he has not urinated today. Patient also has elevated blood sugar. Loulou dolan has not taken his metformin for past [...] MG/DL LAST PM ). Additional Medical History MA in 2003 Additional Surgical History None Drug [...] clubbing, edema, Musculoskeletal: normal inspection, normal tone Neuro/BANANA GRADER: alert oriented x 3, nonfocal Skin: warm, [...] (Auto) (25.0 - 55.0 %) 16.6 L Nicollet % (Auto) (0.0 - 10.0 %) 6.5 Eos % (Auto) (0.0 - 5.0 %) 4.0 Baso % (Auto) (0.0 - 1.0 %) 0.2 Neut # (Auto) (1.8 - 7.7 K/mm3) 4.11 Lymph # (Auto) (1.0 - 5.0 K/mm3) 0.95 [place] # (Auto) (0 - 0.8 K/mm3) 0.37 Eos # (Auto) (0.0 - 0.5 K/mm3) 0.23 Baso # (Auto) (0.0 - 0.2 K/mm3) 0.01 Add Manual Diff NO Urines Urine Color (YELLOW) YELLOW Urine Appearance (CLEAR) SLIGHTLY HAZY H Urine pH (5.0 - 8.0) 6.0 Ur Specific [place] (1.001 - 1.035) 1.020 Urine Protein (Neg [...] - CT ABD PELVIS W/O CONT 10/07 4382 Report Impression - Status: SIGNED Entered: 10/08/2019 6338 IMPRESSION: 1. No evidence of renal or ureteral stones or of obstructive uropathy. 2. No evidence of acute abdominal or pelvic abno rmalities. Location code: [facility] Impression By: Brenda Mcdaniel M.D. Re-Evaluation MDM [...] Referrals Tu Herndon MD at 1723 RPT #:[id number] END OF REPORT
[2022-09-18 11:09] LABS: Absolute Lymphocytes (CBC) 1.1 K/uL (0.7-4.9); Hematocrit 33.6 % (39.6-49.0); Lymphocytes % 16.8 % (15.3-44.8); MCV 86.1 fL (80-100); MPV 8.1 fL (7.6-11.3)
[2022-09-18 11:18] LABS: Protime INR 1.21
[2022-09-18 11:27] LABS: Albumin 3.2 g/dL (3.4-5.0); Bilirubin Total 0.2 mg/dL (0.2-1.0); Potassium 5.5 mEq/L (3.5-5.1); Protein, Total 7.8 g/dL (6.4-8.2); Valproic Acid (Depakene) Level 52.6 mcg/mL (50.0-100.0)
--- NOTE | 2022-09-18 11:31 | RAD REPORT ---
EXAM DESCRIPTION: Román Single View09/18/2022 11:15 am CLINICAL HISTORY: Seizure COMPARISON: September 05, 2022 FINDINGS: The lungs appear clear of acute infiltrate. The heart is normal size IMPRESSION: No acute abnormalities displayed
--- NOTE | 2022-09-18 11:32 | RAD REPORT ---
EXAM DESCRIPTION: RAD - Knee Left 3 View - 09/18/2022 11:15 am CLINICAL HISTORY: Left knee pain FINDINGS: No fracture or dislocation is seen. Below the knee amputation. Soft tissue swelling. Soft tissue ulceration Cortical regularity involves the tibial stump. This is nonspecific but can be seen with osteomyelitis . If clinically indicated further evaluation with MRI could be obtained
--- NOTE | 2022-09-18 13:10 | ER ---
Nurse's Notes [facility] Name: Shivam Blcok Age: 57 yrs Sex: Male : 1965 Arrival Date: 09/18/2022 Time: 10:23 Bed 5 Private MD: Diagnosis: Epileptic seizures related to external causes, not intractable, without status epilepticus;Cellulitis of left lower limb;Possible osteomyelitis of left lower limb Presentation: 09/18 10:38 Chief complaint: EMS states: Was at wound care appointment w/ Dr Brown, had witnessed ph seizures x 2, hx of seizures, states that he also had 1 seizure this morning. Hypotensive w/ last BP 80/s/40s, 20 G to LAC and fluids given, also had HR in 50s which is not normal for pt. Pt awake and alert upon arrival to ED. Coronavirus screen: Vaccine status: Patient reports receiving the 2nd dose of the covid vaccine. Ebola Screen: No symptoms or risks identified at this time. Initial Sepsis Screen: Does the patient meet any 2 criteria? No. Patient's initial sepsis screen is negative. Does the patient have a suspected source of infection? Yes: Skin breakdown/wound. Risk Assessment: Do you want to hurt yourself or someone else? Patient reports no desire to harm self or others. Onset of symptoms was September 18, 2022. 10:38 Method Of Arrival: EMS: [facility] ph 10:38 Acuity: TERRANCE 2 ph Triage Assessment: 10:43 General: Appears in no apparent distress. uncomfortable, Behavior is calm, cooperative, ph appropriate for age, Denies fever, chills. Pain: Complains of pain in low back area. Neuro: Level of Consciousness is awake, alert, obeys commands, Oriented to person, place, time, situation, Seizure activity reported prior to arrival. Cardiovascular: Capillary refill < 3 seconds in bilateral fingers Patient's skin is warm and dry. Respiratory: Airway is patent Respiratory effort is even, unlabored, Respiratory pattern is regular, symmetrical. GI: Reports nausea, vomiting. Derm: Skin is pink, warm \T\ dry. Wound noted left knee Wound is drained abscess, currently packed w/ iodoform, some redness and warmth to surrounding area. Musculoskeletal: Amputation of bilateral BKA. Historical: - Allergies: 10:41 Fish Containing Products; ph 10:41 SEAFOOD; ph - Home Meds: 10:41 Amiodarone Oral [Active]; atorvastatin oral [Active]; cephalexin Oral [Active]; eloquis ph [Active]; gabapentin oral [Active]; Depakote Oral [Active]; lisinopril Oral [Active]; Metoprolol Tartrate Oral [Active]; sertraline oral [Active]; - PMHx: 10:41 Atrial fibrillation; diabetes mellitus; Hypertensive disorder; ph - PSHx: 10:41 bilateral BKA; ph - Immunization history:: Adult Immunizations up to date. - Social history:: Smoking status: Patient denies any tobacco usage or history of. - Family history:: not pertinent. - Hospitalizations: : No recent hospitalization is reported. Screenin:45 [facility] ED Fall Risk Assessment (Adult) History of falling in the last 3 months, ph including since admission Yes- single mechanical fall (1 pt) Confusion or Disorientation No (0 pts) Intoxicated or Sedated No (0 pts) Impaired Gait Yes (1 pt) Mobility Assist Device Used Yes (1 pt) Altered Elimination No (0 pt) Score/Fall Risk Level 3 or more points = High Risk Oriented to surroundings, Maintained a safe environment, Hourly rounding (assess needs \T\ fall precautionary measures) done. Abuse screen: Denies threats or abuse. Denies injuries from another. Nutritional screening: No deficits noted. Tuberculosis screening: No symptoms or risk factors identified. Assessment: 11:15 General: SEE TRIAGE ASSESSMENT. ph 11:48 Reassessment: Patient appears in no apparent distress at this time. Patient and/or ph family updated on plan of care and expected duration. Pain level reassessed. 13:00 Reassessment: Patient appears in no apparent distress at this time. Patient and/or ph family updated on plan of care and expected duration. Pain level reassessed. Pt asleep w/ stable VS. 15:00 Reassessment: Patient appears in no apparent distress at this time. Patient and/or ph family updated on plan of care and expected duration. Pain level reassessed. 16:30 Reassessment: Patient appears in no apparent distress at this time. Patient and/or ph family updated on plan of care and expected duration. Pain level reassessed. Patient is alert, oriented x 3, equal unlabored respirations, skin warm/dry/pink. 17:30 Reassessment: Patient appears in no apparent distress at this time. Patient and/or ph family updated on plan of care and expected duration. Pain level reassessed. Patient is alert, oriented x 3, equal unlabored respirations, skin warm/dry/pink. Pt eating dinner. Vital Signs: 10:38 BP 96 / 56; Pulse 50; Resp 18; Temp 97.2; Pulse Ox 96% on R/A; Weight 68.04 kg; ph 11:47 BP 155 / 85; Pulse 50; Resp 18; Pulse Ox 94% on R/A; ph 13:00 BP 121 / 64; Pulse 50; Resp 18; Pulse Ox 97% on R/A; ph 14:00 BP 130 / 74; Pulse 51; Resp 18; Pulse Ox 96% on R/A; ph 15:00 BP 145 / 64; Pulse 49; Resp 12; Pulse Ox 98% on R/A; ph 16:00 BP 138 / 61; Pulse 48; Resp 18; Pulse Ox 98% on R/A; ph 17:00 BP 148 / 77; Pulse 51; Resp 16; Pulse Ox 99% on R/A; ph 19:00 BP 164 / 73; Pulse 54; Resp 16; Pulse Ox 96% ; aa9 ED Course: 10:30 Patient arrived in ED. bd 10:30 Sridhar Villareal MD is Attending Physician. rn 10:41 Triage completed. ph 10:45 Arm band placed on Patient placed in an exam room, on a stretcher, on equipment monitor phototypesetting, ph on pulse oximetry. 10:45 Patient has correct armband on for positive identification. Bed in low position. Call ph light in reach. Side rails up X2. Client placed on continuous cardiac and pulse oximetry monitoring. NIBP monitoring applied. 10:46 Klarissa Mcginnis, RN is Primary Nurse. ph 11:17 XRAY Knee LEFT 3 view In Process Unspecified. EDMS 11:17 Chest Single View XRAY In Process Unspecified. EDMS 13:09 Brennan Elaine is Hospitalizing Provider. rn 17:31 No provider procedures requiring assistance completed. Maintain EMS IV. Dressing ph intact. Good blood return noted. Site clean \T\ dry. Gauge \T\ site: 20 LAC. 17:31 Patient admitted, IV remains in place. ph Administered Medications: 18:15 Drug: vancoMYCIN IVPB 1 grams Route: IVPB; Infused Over: 2 hrs; Site: left antecubital; ph 18:36 Follow up: IV Status: Infusion continued upon admission ph Medication: 10:45 VIS not applicable for this client. ph Outcome: 13:10 Decision to Hospitalize by Provider. rn 19:17 Condition: stable aa9 19:34 Admitted to Med/surg accompanied by tech, via stretcher, room 220, with chart, Report rv called to Gloria IBRAHIM 19:34 Instructed on the need for admit. 19:35 Patient left the ED. rv Signatures: Dispatcher [employer] EDMS Judie Leyva Roman, MD MD rn Hall, Patricia, RN RN ph Vicente, Ronaldo, RN RN rv Sapna Kessler RN RN aa9
--- NOTE | 2022-09-18 13:10 | EDPHYS ---
Physician Documentation [facility] Name: Shivam Block Age: 57 yrs Sex: Male : 1965 Arrival Date: 09/18/2022 Time: 10:23 Bed 5 Private MD: ED Physician Sridhar Villareal HPI: 09/18 13:01 This 57 yrs old Male presents to ER via EMS with complaints of seizure x 3. rn 13:01 The patient presents with a history of multiple seizures, a total of 3. Character of rn seizure(s): Motor activity: generalized, Incontinence: none, Circulation: the patient did not experience evidence of pulse disturbance, Eye movements: are unknown. Seizure onset: this morning. Associated injury: The patient did not suffer any apparent associated injury. Current symptoms: Currently, the patient is not experiencing any symptoms. The patient has experienced similar episodes in the past. Sent in by Dr. Brown after patient presented to his clinic after having 3 seizures, was post ictal and reporting nausea and drowsiness. Pt has hx of seizures, takes depakote, usually has seizures once every week or two weeks. No pain or injury. Reports has been treating a leg infection recently that happened after fall. no fever. . Historical: - Allergies: 10:41 Fish Containing Products; ph 10:41 SEAFOOD; ph - Home Meds: 10:41 Amiodarone Oral [Active]; atorvastatin oral [Active]; cephalexin Oral [Active]; eloquis ph [Active]; gabapentin oral [Active]; Depakote Oral [Active]; lisinopril Oral [Active]; Metoprolol Tartrate Oral [Active]; sertraline oral [Active]; - PMHx: 10:41 Atrial fibrillation; diabetes mellitus; Hypertensive disorder; ph - PSHx: 10:41 bilateral BKA; ph - Immunization history:: Adult Immunizations up to date. - Social history:: Smoking status: Patient denies any tobacco usage or history of. - Family history:: not pertinent. - Hospitalizations: : No recent hospitalization is reported. ROS: 13:01 Constitutional: Negative for fever, chills, and weight loss, Eyes: Negative for injury, rn pain, redness, and discharge, Neck: Negative for injury, pain, and swelling, Cardiovascular: Negative for chest pain, palpitations, and edema, Respiratory: Negative for shortness of breath, cough, wheezing, and pleuritic chest pain, Abdomen/GI: Negative for abdominal pain, diarrhea, and constipation, Back: Negative for injury and pain, MS/Extremity: Negative for injury and deformity, Skin: + redness to left BKA stump with wound packing, and warmth Neuro: Negative for weakness, numbness, tingling Exam: 13:01 Constitutional: This is a well developed, well nourished patient who is awake, alert, rn and in no acute distress. Cardiovascular: Regular rate and rhythm. No pulse deficits. Respiratory: No increased work of breathing, no retractions or nasal flaring. Abdomen/GI: soft, non-tender Skin: + redness to left BKA stump with wound packing, and warmth MS/ Extremity: No cyanosis. Neuro: Awake and alert, GCS 15, oriented to person, place, time, and situation. Cranial nerves II-XII grossly intact. Motor strength 5/5 in all extremities. Sensory grossly intact. 16:27 ECG was reviewed by the Attending Physician. rn Vital Signs: 10:38 BP 96 / 56; Pulse 50; Resp 18; Temp 97.2; Pulse Ox 96% on R/A; Weight 68.04 kg; ph 11:47 BP 155 / 85; Pulse 50; Resp 18; Pulse Ox 94% on R/A; ph 13:00 BP 121 / 64; Pulse 50; Resp 18; Pulse Ox 97% on R/A; ph 14:00 BP 130 / 74; Pulse 51; Resp 18; Pulse Ox 96% on R/A; ph 15:00 BP 145 / 64; Pulse 49; Resp 12; Pulse Ox 98% on R/A; ph 16:00 BP 138 / 61; Pulse 48; Resp 18; Pulse Ox 98% on R/A; ph 17:00 BP 148 / 77; Pulse 51; Resp 16; Pulse Ox 99% on R/A; ph 19:00 BP 164 / 73; Pulse 54; Resp 16; Pulse Ox 96% ; aa9 MDM: 10:30 Patient medically screened. rn 13:08 Differential diagnosis: seizure, cellulitis, osteomyelitis, dehydration, hyperglycemia, rn seizure. Data reviewed: vital signs, nurses notes, lab test result(s), radiologic studies, plain films, and as a result, I will admit patient. Consideration of Admission/Observation Patient was admitted/placed on observation. Escalation of care including admission/observation considered. Management of patient was discussed with the following: Hospitalist: . Sound System Installer: Dr. Brown, agrees with admission, wants npo after midnight and abx.. Independent interpretation of the following test(s) in the Emergency Department X-Ray: My interpretation is Left knee xray images neg for acute fracture per my interpretation. Counseling: I had a detailed discussion with the patient and/or guardian regarding: the historical points, exam findings, and any diagnostic results supporting the discharge/admit diagnosis, lab results, radiology results, the need for further work-up and treatment in the hospital. 09/18 10:32 Order name: Blood Culture Adult (2) rn 09/18 10:32 Order name: CBC with Diff; Complete Time: 12:51 rn 09/18 10:32 Order name: CMP; Complete Time: 12:51 09/18 10:32 Order name: Lactate w/ 2H reflex if indic.; Complete Time: 12:51 09/18 10:32 Order name: Protime (+inr); Complete Time: 12:51 09/18 10:32 Order name: Ptt, Activated; Complete Time: 12:51 09/18 10:32 Order name: Urinalysis w/ reflexes rn 09/18 10:32 Order name: Depakote; Complete Time: 12:51 rn 09/18 19:21 Order name: Phosphorus EDMS 09/18 19:21 Order name: Magnesium EDMS 09/18 10:31 Order name: XRAY Knee LEFT 3 view; Complete Time: 12:51 09/18 10:32 Order name: Chest Single View XRAY; Complete Time: 12:51 09/18 10:32 Order name: EKG; Complete Time: 10:32 09/18 10:32 Order name: Accucheck; Complete Time: 10:45 09/18 10:32 Order name: Cardiac monitoring; Complete Time: 11:03 09/18 10:32 Order name: EKG - Nurse/Tech; Complete Time: 11:21 09/18 10:32 Order name: IV Saline Lock - Large Bore; Complete Time: 11:03 09/18 10:32 Order name: Labs collected and sent; Complete Time: 11:03 09/18 10:32 Order name: O2 Per Protocol; Complete Time: 10:45 rn 09/18 10:32 Order name: O2 Sat Monitoring; Complete Time: 10:45 rn 09/18 10:32 Order name: Vital Signs; Complete Time: 10:45 rn EC:27 Rate is 49 beats/min. Rhythm is regular. QRS is negative in leads I, aVF. FL interval rn is normal. QT interval is normal. No Q waves. T waves are Normal. No ST changes noted. Clinical impression: Sinus bradycardia. Interpreted by me. Reviewed by me. Administered Medications: 18:15 Drug: vancoMYCIN IVPB 1 grams Route: IVPB; Infused Over: 2 hrs; Site: left antecubital; ph 18:36 Follow up: IV Status: Infusion continued upon admission ph Disposition Summary: 09/18/22 13:10 Hospitalization Ordered Hospitalization Status: Inpatient Admission rn Provider: Brennan Elaine rn Location: Telemetry/MedSurg (Inpatient) rn Condition: Stable rn Problem: new rn Symptoms: have improved rn Bed/Room Type: Standard rn Room Assignment: 220(09/18/22 17:05) dw Diagnosis - Epileptic seizures related to external causes, not intractable, without status rn epilepticus - Cellulitis of left lower limb rn - Possible osteomyelitis of left lower limb rn Forms: - Medication Reconciliation Form rn - SBAR form rn Signatures: Dispatcher [employer] Marilin Schaffer RN RN dw Sridhar Villareal MD MD rn Hall, Patricia, RN RN ph Corrections: (The following items were deleted from the chart) 13:07 13:01 Constitutional: Negative for fever, chills, and weight loss, Eyes: Negative for rn injury, pain, redness, and discharge, Neck: Negative for injury, pain, and swelling, Cardiovascular: Negative for chest pain, palpitations, and edema, Respiratory: Negative for shortness of breath, cough, wheezing, and pleuritic chest pain, Abdomen/GI: Negative for abdominal pain, diarrhea, and constipation, Back: Negative for injury and pain, MS/Extremity: Negative for injury and deformity, Skin: Negative for injury, rash, and discoloration, Neuro: Negative for weakness, numbness, tingling rn 13:07 13:01 Constitutional: Negative for fever, chills, and weight loss, Eyes: Negative for rn injury, pain, redness, and discharge, Neck: Negative for injury, pain, and swelling, Cardiovascular: Negative for chest pain, palpitations, and edema, Respiratory: Negative for shortness of breath, cough, wheezing, and pleuritic chest pain, Abdomen/GI: Negative for abdominal pain, diarrhea, and constipation, Back: Negative for injury and pain, MS/Extremity: Negative for injury and deformity, Skin: + redness to left BKA stump with wound packing, and warmth Neuro: Negative for weakness, numbness, tingling rn 13:07 13:01 Constitutional: This is a well developed, well nourished patient who is awake, rn alert, and in no acute distress. rn 17:05 13:10 rn dw
[2022-09-18] MEDS ORDERED: HYDROCODONE/APAP 10/325 TAB PO PRN (14:40)
[2022-09-18] MEDS ORDERED: ACETAMINOPHEN 325 MG TABLET PO PRN (14:41)
[2022-09-18] MEDS: CEFEPIME 1 GM in NA CHLORIDE 0.9% 100 ML IV SCH (15:00)
[2022-09-18] MEDS ORDERED: VANCOMYCIN 1 GM in NA CHLORIDE 0.9% 250 ML IVPB ONE (15:00)
[2022-09-18] MEDS ORDERED: ONDANSETRON 4 MG/2 ML VIAL IV PRN (15:06)
[2022-09-18] MEDS ORDERED: SOD POLYSTYREN SUL 15 GM/60 ML UCUP PO ONE (15:11)
--- NOTE | 2022-09-18 15:22 | P.HP ---
Certification for Inpatient Patient admitted to: Inpatient With expected LOS: >2 Midnights Patient will require the following post-hospital care: None Practitioner: I am a practitioner with admitting privileges, knowledge of patient current condition, hospital course, and medical plan of care. Services: Services provided to patient in accordance with Admission requirements found in Title 42 Section 412.3 of the Code of Federal Regulations Patient History Date of Service: 09/18/22 Reason for admission: Seizures, Left stump wound History of Present Illness: Patient is a 57-year-old male with a past medical history significant for atrial fibrillation, DM 2, hypertension, seizures who presents with complaint of seizures. Patient reported that he went to see his wound Care MD for weekly wound care and while he was in the clinic patient started having seizures. Patient reported that he had 2 episodes of seizures. Nursing staff also indicated that patient had 1 seizure at home based on the report given to them by EMS. Patient reported associated signs and symptoms of nausea. Patient denies any other signs and symptoms. Symptoms are aggravated or relieved by nothing. Patient was brought to the hospital for medical evaluation. Allergies shellfish derived Allergy (Verified 08/15/22 22:16) Itching/Hives/Rash Home Medications: Amiodarone HCl [Cordarone*] 200 mg PO DAILY 08/15/22 Apixaban [Eliquis] 5 mg PO BID 08/15/22 Atorvastatin Calcium 40 mg PO BEDTIME 08/15/22 Gabapentin 300 mg PO BID 08/15/22 Insulin Glargine,Hum.rec.anlog [Semglee] 14 unit SQ DAILY 08/15/22 Insulin NPH Human Isophane [Humulin N] 100 unit SQ ACHS 08/15/22 Metoprolol Tartrate 25 mg PO BID 08/15/22 Sertraline [Zoloft*] 100 mg PO DAILY 08/15/22 lisinopriL [Lisinopril] 5 mg PO DAILY 08/15/22 Collagenase [Santyl Ointment*] 1 appl TOP DAILY #1 tube 08/21/22 Divalproex Sodium [Depakote ER] 500 mg PO BID #60 tab 08/21/22 Mupirocin Calcium [Bactroban Nasal*] 1 appl ANDER BID #1 tube 08/21/22 Mupirocin Oint [Bactroban 2% Ointment*] 1 appl TOP DAILY #1 tube 08/21/22 Smz./Tmp. [Bactrim Ds 800 MG/160 MG] 1 tab PO BID #14 tab 08/21/22 - Past Medical/Surgical History Diabetic: Yes -: atrial fib -: HTN -: DM -: BKA peter - Social History Smoking Status: Heavy Tobacco smoker (>10 cigarettes/day) Smoking therapy provided: Yes Patient receptive to therapy: No Alcohol use: No CD- Drugs: No Caffeine use: Yes Place of Residence: Home Review of Systems General: Unremarkable Eyes: Unremarkable ENT: Unremarkable Respiratory: Unremarkable Cardiovascular: Unremarkable Gastrointestinal: Nausea Genitourinary: Unremarkable Musculoskeletal: Leg Pain Integumentary: Other (Left leg wound ) Neurological: Unremarkable Lymphatics: Unremarkable Physical Examination - Physical Exam General: Alert, In no apparent distress, Oriented x3 HEENT: Atraumatic, PERRLA, Mucous membr. moist/pink, EOMI, Sclerae nonicteric Neck: Supple, 2+ carotid pulse no bruit, No LAD, Without JVD or thyroid abnormality Respiratory: Clear to auscultation bilaterally, Normal air movement Cardiovascular: No edema, Regular rate/rhythm, Normal S1 S2 Capillary refill: <2 Seconds Gastrointestinal: Normal bowel sounds, Hypoactive, Soft and benign (Regular), No tenderness Musculoskeletal: No tenderness Integumentary: No rashes, Erythema, Other (Left stump woumd ) Neurological: Normal gait, Normal speech, Normal strength at 5/5 x4 extr, Normal tone, Normal affect Lymphatics: No axilla or inguinal lymphadenopathy - Studies Laboratory Data (last 24 hrs) 09/18/22 10:55: PT 13.3 H, INR 1.21, APTT 30.4 09/18/22 10:55: Sodium 135 L, Potassium 5.5 H, BUN 30 H, Creatinine 1.46 H, Glucose 168 H, Total Bilirubin 0.2, AST 14 L, ALT 24, Alkaline Phosphatase 87 09/18/22 10:55: WBC 6.50, Hgb 10.9 L, Hct 33.6 L, Plt Count 334 Assessment and Plan - Plan --Left stump cellulitis\wound. Patient has been following up with wound care clinic for weekly wound care. Leg x-ray indicates findings of Cortical regularity involves the tibial stump. This is nonspecific but can be seen with osteomyelitis.. MRI left lower extremity pending to rule out osteomyelitis. Blood and wound cultures pending. Continue antibiotics. Surgeon consulted. Recommended placing patient NPO after midnight. Recommendations. --Seizures. Neurology consulted. Continue home medication. Seizure precautions. Will await further recommendation from neurologist. --DM2. BS monitoring with sliding scale insulin. --Atrial fibrillation. Patient likely has a surgical procedure in a.m. We will resume patient's Eliquis after surgery. Continue amiodarone. --Hyperlipidemia. Continue statin. --Hypertension. Poorly controlled. Continue medications and hydralazine as needed. --Acute on chronic pain. Continue current pain medication regimen. --DVT prophylaxis with SCDs. Discharge Plan: Home Plan to discharge in: Greater than 2 days - Advance Directives Does patient have a Living Will: No Does patient have a Durable POA for Healthcare: No - Code Status/Comfort Care Code Status Assessed: Yes Physician Review: Patient Assessed, Agree with Above Assessment and Plan
[2022-09-18] MEDS ORDERED: NA CHLORIDE 0.9% 0 ML ONE (15:46)
[2022-09-18] MEDS ORDERED: VANCOMYCIN 1 GM/VIAL ONE (15:46)
[2022-09-18] MEDS ORDERED: VANCOMYCIN 1.75 GM in NA CHLORIDE 0.9% 500 ML IVPB ONE ×4 (16:00)
[2022-09-18] MEDS ORDERED: VANCOMYCIN 1.5 GM in NA CHLORIDE 0.9% 500 ML IVPB ONE (16:00)
[2022-09-18] MEDS ORDERED: HYDRALAZINE HCL 20 MG/ML VIAL IV PRN (16:28)
[2022-09-18] MEDS: INSULIN -REGULAR HUMAN 50 UNIT/0.5 ML ML SQ SCH ×2 (16:30→21:00)
[2022-09-18 18:49] LABS: Specific Gravity 1.011 (1.005-1.030); Urine Bacteria None Seen /HPF (<20); Urine Bilirubin NEGATIVE (Negative); Urine Blood Negative (Negative); Urine Clarity Clear (Clear); Urine Color Light-Yellow (Yellow); Urine Glucose NEGATIVE (Negative); Urine Mucus Slight /HPF (None Seen); Urine Protein TRACE (Negative); Urine RBC <5 /HPF (None Seen); Urine Urobilinogen Normal (Normal); Urine pH 6.5 (5.0-7.0)
[2022-09-18 19:06] LABS: Phosphorus 3.9 mg/dL (2.5-4.9)
[2022-09-18 19:20] LABS: Magnesium 2.3 mg/dL (1.6-2.4)
--- NOTE | 2022-09-18 22:29 | RAD REPORT ---
EXAM DESCRIPTION: MRI - Tib Fib Left Wo Cont - 09/18/2022 10:13 pm CLINICAL HISTORY: Left Stump wound COMPARISON: No comparisons TECHNIQUE: Multiplanar multisequence MRI of the left tibia and fibula, obtained without IV contras t. FINDINGS: Patient is status post below-knee amputation. Motion artifact somewhat limits evaluation. Lateral wound along the below-knee amputation stump, with a tract extending into the deeper soft tiss ues and musculature, just caudal to the fibular stump extending to its margin, measuring 3.7 x 2.1 ce ntimeter in greatest coronal dimensions, and 2 centimeter in greatest AP dimension. The tract contain s some fluid accumulation along its deepest aspect, as well as soft tissue gas which results in susce ptibility artifact, limiting evaluation. Focus of susceptibility signal abnormality along the tibial stump anteriorly which limits evaluation. There is lateral subperiosteal somewhat pain near marrow T1 hypointensity and T2 hyperintensity, whi ch extends along the lateral aspect of the tibial stump. Please see series 5, image 20 among others. Similar signal abnormality at the fibular stump as well, see series 5, image 13. Nonspecific edematous changes within the muscular flap. IMPRESSION: Limited marrow signal abnormality along the tibial and fibular stumps as detailed above, suggesting sequelae of acute osteomyelitis. Bilateral wound with a sinus containing fluid and gas extending from the wound into the deeper soft t issues, level of the margin of the fibular stump, measuring 3.7 centimeter in greatest dimension.
[2022-09-18] MEDS: VALPROATE SODIUM INJ 500 MG in NA CHLORIDE 0.9% 100 ML IV SCH (22:59)
[2022-09-19] MEDS: CEFEPIME 1 GM in NA CHLORIDE 0.9% 100 ML IV SCH ×3 (00:02→22:03)
[2022-09-19 04:28] LABS: Absolute Lymphocytes (CBC) 1.6 K/uL (0.7-4.9); Hematocrit 32.7 % (39.6-49.0); Lymphocytes % 30.3 % (15.3-44.8); MCV 85.4 fL (80-100); MPV 8.3 fL (7.6-11.3); RBC Red Blood Cell Count 3.82 M/uL (4.33-5.43)
[2022-09-19 04:35] LABS: Magnesium 2.5 mg/dL (1.6-2.4); Phosphorus 3.6 mg/dL (2.5-4.9)
[2022-09-19 04:38] LABS: Potassium 4.7 mEq/L (3.5-5.1)
[2022-09-19] MEDS ORDERED: DIAZEPAM 5 MG TABLET PO PRN (06:00)
[2022-09-19] MEDS: INSULIN -REGULAR HUMAN 50 UNIT/0.5 ML ML SQ SCH ×4 (07:30→21:00)
[2022-09-19] MEDS: VALPROATE SODIUM INJ 500 MG in NA CHLORIDE 0.9% 100 ML IV SCH ×2 (08:53→23:26)
--- NOTE | 2022-09-19 12:10 | EKG ---
Test Date: 2022-09-18 Test Time: 11:15:37 Corn Cutter Operator: PH MEASUREMENT RESULTS: Intervals: Rate: 49 [place]: 182 QRSD: 134 QT: 492 QTc: 444 [place]: P: 84 [place]: 182 QRS: 259 T: 49 INTERPRETIVE STATEMENTS: Sinus bradycardia Right bundle branch block Possible Lateral infarct, age undetermined Inferior infarct, age undetermined Abnormal ECG Compared to ECG 09/05/2022 19:57:18 Sinus rhythm no longer present Myocardial infarct finding still present Electronically Signed On 09-19-22 12:06:12 CDT by Joshua Diaz
[2022-09-19] MEDS: VANCOMYCIN 1.25 GM in NA CHLORIDE 0.9% 250 ML IVPB SCH (16:17)
--- NOTE | 2022-09-19 16:40 | P.PN ---
Subjective Date of Service: 09/19/22 Chief Complaint: Seizures, Left stump wound Patient has no new complaint. No seizures since admission. No recorded fever. He denies pain. Physical Examination - Vital Signs Temperature: 97.6 F Blood Pressure: 147/65 Pulse: 80 Respirations: 14 Pulse Ox (%): 95 Assessment And Plan - Plan Physical Exam General: Alert, In no apparent distress, Oriented x3 Respiratory: Clear to auscultation bilaterally, Normal air movement Cardiovascular: No edema, Regular rate/rhythm, Normal S1 S2 Gastrointestinal: Normal bowel sounds, Hypoactive, Soft and benign (Regular), No tenderness Musculoskeletal: No tenderness, bilateral AKA. Integumentary: No rashes, Erythema, Left BKA stump wound Neurological: Normal strength at 5/5 x4 extr, Normal tone, Normal affect Plan Left stump cellulitis\wound. Leg x-ray indicates findings of Cortical regularity involves the tibial stump. This is nonspecific but can be seen with osteomyelitis.. MRI left lower extremity suggest acute osteomyelitis and sinus containing fluid and gas. Blood and wound cultures: No growth to date, no leukocyte continue IV cefepime and vancomycin. Surgeon consulted. Dr. Brown service recommending surgical debridement tomorrow Seizures. Neurology consulted. Continue home medication. Seizure precautions. Dr. Aguilera recommended loading dose Keppra, additional dose of Keppra IV preop. Check urine toxicology screen. DM2. BS monitoring with sliding scale insulin. Chronic atrial fibrillation. Hold Eliquis and resume after surgery. Continue amiodarone. Hyperlipidemia. Continue statin. Hypertension. Continue home medication medications. Hydralazine as needed for BP spikes.
[2022-09-19] MEDS ORDERED: levETIRAcetam 1,000 MG in NA CHLORIDE 0.9% 100 ML IV ONE (17:00)
[2022-09-19] MEDS ORDERED: DIAZEPAM 5 MG TABLET ONE (19:39)
[2022-09-19 19:54] LABS: Barbiturates NEGATIVE (NEGATIVE); Benzodiazepines NEGATIVE (NEGATIVE); Cocaine NEGATIVE (NEGATIVE); METHAMPHETAM NEGATIVE (NEGATIVE); Methadone NEGATIVE (NEGATIVE); Opiates NEGATIVE (NEGATIVE); Phencyclidine NEGATIVE (NEGATIVE); THC Cannibis NEGATIVE (NEGATIVE)
[2022-09-19] MEDS: COLLAGENASE 30 GM OINTMENT TOP SCH (22:02)
[2022-09-19] MEDS: METOPROLOL TAR 25 MG TAB PO SCH (22:02)
[2022-09-19] MEDS: ATORVASTATIN 40 MG TAB PO SCH (22:02)
[2022-09-19] MEDS: GABAPENTIN 400 MG CAP PO SCH (22:02)
--- NOTE | 2022-09-19 22:16 | RAD REPORT ---
EXAM DESCRIPTION: MRI - Brain Wo Cont - 09/19/2022 8:50 pm CLINICAL HISTORY: seizures COMPARISON: Head CT 09/05/2022.. TECHNIQUE: Multiplanar multisequence MRI of the brain performed without IV contrast. FINDINGS: Motion artifact somewhat limits evaluation, despite attempts at repeat imaging. No evidence of acute infarct or other diffusion signal abnormality. No evidence of acute intracranial hemorrhage or abnormal extra-axial fluid collections. Mild diffuse parenchymal volume loss. Ventricular caliber otherwise within normal for age. Midline st ructures are unremarkable. Scattered subcortical and deep white matter T2/FLAIR hyperintensities, nonspecific. Some of the abnor malities are linear, extending along the body of the corpus callosum. No mass effect or midline shift. Major vascular flow voids are preserved. Mastoid air cells and paranasal sinuses are clear. IMPRESSION: No acute intracranial process. No evidence of ventriculomegaly or mass effect. Nonspecific deep white matter T2 hyperintensities as above. These may relate to early chronic small v essel ischemic changes, demyelinating disease, or sequelae of remote infection or trauma. Please aleksandr elate clinically.
--- NOTE | 2022-09-19 22:34 | CON ---
Reason For Consultation: Consultation called because of seizures and for recommendations for seizure management prior to during and after surgery. History Of Present Illness: Mr. Block is a 57-year-old patient who has bilateral above-knee amputati ons, atrial fibrillation, diabetes mellitus, hypertension, and history of seizures treated at [facility]. The patient does have cellulitis involving a stump and is set by Dr. Brown to have surgery in the [facility]. However, he apparently has had recent pjak-so-hile seizures while taking, according to the p atient, Dilantin 100 mg twice daily. It is unclear if his blood levels have been therapeutic. The s eizures are not described in the charting system and the patient cannot give details of the specific type of seizures. Past Medical History: As noted above. Allergies: SHELLFISH. Medications: Cordarone 200 mg daily, Eliquis 5 mg twice daily, atorvastatin 40 mg at bedtime, gabape ntin 300 mg twice daily, Semglee insulin 14 units subcutaneously daily, Humulin N insulin 100 units s ubcutaneously before meals and at bedtime, metoprolol 25 mg twice daily, Zoloft 100 mg daily, lisinop ril 5 mg daily, Santyl apply topically to wound, Depakote extended release 500 mg twice daily, Bactri m DS 1 twice daily. Family History: Noncontributory. Past Surgical History: Below-knee amputations. Social History: The patient smokes at least 10 cigarettes a day. No recent alcohol. No IV drug use . Review of Systems: Pain in the stumps. Nausea. Otherwise, mild myalgias, arthralgias. No psychiatric complaints. No genitourinary or gastrointestinal complaints. Physical Examination: Vital Signs: Blood pressure 147/65, pulse 80, respiratory rate 14, temperature 97.6, oxygen saturati on 95% to 97% on room air. General: Mr. Block is resting in bed. He is in no acute distress. HEENT: He appears normocephalic, atraumatic. Sclerae anicteric. Oropharynx is moist. Neck: Supple. Extremities: Upper extremities show no edema or cyanosis. Lower extremities, below-knee amputation. Stumps are bandaged. Neurologic: Otherwise in terms of neurological examination, he is alert, oriented to situation, plac e, person. He does follow commands appropriately. Cranial nerves show no focal deficits, upper extr emities, both sides. No focal deficits. He has a glove loss to light touch temperature in the upper extremities. Reflexes depressed in the upper extremities. Laboratory Studies: Complete blood count with differential showed white blood cell count 5.1, hemogl obin 10.6. INR 1.21. Chemistry; sodium 135, potassium 4.1, chloride 106, carbon dioxide 26, BUN 28, creatinine 1.03, glucose ranged from 92-104, magnesium 2.5, phosphorus 3.6, LDL cholesterol 51, HDL 31, total cholesterol 108. His valproic acid level is 52.6. Assessment: Mr. Block is a 57-year-old patient with reported seizures, possible complex partial seiz ures with secondary generalization. He has been on valproic acid. His blood level is barely therape utic at 52. The patient currently is having seizures with that level, therefore, an additional antie pileptic medication is indicated, and he is now on Keppra 500 mg twice daily after a load of 1000 mg a day. That is the recommended minimum dosage, as he is thought to have seizures. It is noted that the risk of seizures is very low during generalized anesthesia, however, when the patient is waking u p and out of anesthesia, is when his risk for seizures increases. He should have Ativan ready. Plan: 1.Continue with Keppra 500 mg IV twice daily after a load of 1000 mg. 2.Continue Depakote, and Depakote actually has IV forms as well. May give the dosage of 500 mg twic e daily of the Depakote. Continue with antibiotics as per Dr. Brown's recommendations. 3.The patient is unable to get an EEG as the machine is broken. No MRI is required. LB/MODL Voice ID: [id number] Report ID: [id number]
[2022-09-20 06:43] LABS: Potassium 4.7 mEq/L (3.5-5.1)
[2022-09-20] MEDS ORDERED: levETIRAcetam 500 MG in NA CHLORIDE 0.9% 100 ML IV SCH (07:00)
[2022-09-20] MEDS: INSULIN -REGULAR HUMAN 50 UNIT/0.5 ML ML SQ SCH ×4 (07:30→21:00)
[2022-09-20 07:32] LABS: Magnesium 2.4 mg/dL (1.6-2.4); Phosphorus 4.2 mg/dL (2.5-4.9)
[2022-09-20] MEDS: METOPROLOL TAR 25 MG TAB PO SCH ×2 (08:12→20:16)
[2022-09-20] MEDS: GABAPENTIN 400 MG CAP PO SCH ×3 (08:12→20:13)
[2022-09-20] MEDS: AMIODARONE HCL 200 MG TAB PO SCH (08:12)
[2022-09-20] MEDS: SERTRALINE HCL 100 MG TAB PO SCH (08:13)
[2022-09-20] MEDS: lisinopriL 5 MG TAB PO SCH (08:13)
[2022-09-20] MEDS: COLLAGENASE 30 GM OINTMENT TOP SCH (09:00)
[2022-09-20] MEDS: levETIRAcetam 500 MG in NA CHLORIDE 0.9% 100 ML IV SCH ×2 (09:31→20:12)
[2022-09-20] MEDS: VALPROATE SODIUM INJ 500 MG in NA CHLORIDE 0.9% 100 ML IV SCH ×2 (09:31→20:13)
[2022-09-20] MEDS: CEFEPIME 1 GM in NA CHLORIDE 0.9% 100 ML IV SCH ×2 (09:31→20:11)
--- NOTE | 2022-09-20 12:01 | P.PN ---
Subjective Date of Service: 09/20/22 Chief Complaint: Seizures, Left stump wound Patient has no new complaint. He denies pain. No fever Physical Examination - Vital Signs Temperature: 97.4 F Blood Pressure: 102/58 Pulse: 56 Respirations: 16 Pulse Ox (%): 92 Assessment And Plan - Plan Physical Exam General: Alert, In no apparent distress, Oriented x3 Respiratory: Clear to auscultation bilaterally, Normal air movement Cardiovascular: No edema, Regular rate/rhythm, Normal S1 S2 Gastrointestinal: Normal bowel sounds, Hypoactive, Soft and benign (Regular), No tenderness Musculoskeletal: No tenderness, bilateral AKA. Integumentary: No rashes, Erythema, Left BKA stump wound Neurological: Normal strength at 5/5 x4 extr, Normal tone, Normal affect Plan Left stump cellulitis\wound. Leg x-ray indicates findings of Cortical regularity involves the tibial stump. This is nonspecific but can be seen with osteomyelitis.. MRI left lower extremity suggest acute osteomyelitis and sinus containing fluid and gas. Blood and wound cultures: No growth to date, no leukocyte continue IV cefepime and vancomycin. Seen by Dr. Brown and patient scheduled for surgical debridement today. Seizures. Neurology consulted. Continue home medication. Seizure precautions. Dr. Aguilera recommended loading dose Keppra, additional dose of Keppra IV preop. Dr. Minor input appreciated. Continue Depakote IV. DM2. BS monitoring with sliding scale insulin. Chronic atrial fibrillation. Hold Eliquis and resume after surgery. Continue amiodarone. Hyperlipidemia. Continue statin. Hypertension. Continue home medication medications. Hydralazine as needed for BP spikes.
[2022-09-20] MEDS ORDERED: NA CHLORIDE 0.9% 1,000 ML ONE (12:58)
[2022-09-20] MEDS ORDERED: propofoL 200 MG/20 ML VIAL IV ONE (13:44)
[2022-09-20] MEDS ORDERED: FENTANYL CITR 100 MCG/2 ML ONE (13:44)
[2022-09-20] MEDS ORDERED: ROCURONIUM 50 MG/5 ML VIAL IV ONE (13:45)
[2022-09-20] MEDS ORDERED: ONDANSETRON 4 MG/2 ML VIAL ONE ×2 (13:46→15:11)
[2022-09-20] MEDS ORDERED: LIDOCAINE 2% MPF 5 ML VIAL ONE (13:46)
[2022-09-20] MEDS ORDERED: LIDOCAINE HCL/EPINEPHRINE 20 ML MDV ONE (14:02)
[2022-09-20] MEDS ORDERED: MIDAZOLAM HCL 2 MG/2 ML INJ ONE (14:14)
[2022-09-20] MEDS ORDERED: EPHEDRINE SULF 50 MG/ML VIAL ONE (14:38)
--- NOTE | 2022-09-20 14:50 | P.OP ---
Preoperative diagnosis: LEFT BKA Wounds Postoperative diagnosis: LEFT BKA Wounds Primary procedure: Debridement of Multiple LEFT BKA Wounds Anesthesia: GETA + Local Estimated blood loss: <5cc Specimen: debridement tissue Findings: minimal superficial necrosis to BKA wound and posterior popleteil skin Complications: None Transferred to: Recovery Room Condition: Good
[2022-09-20] MEDS ORDERED: LORazepam 2 MG/ML VIAL IV ONE (15:00)
[2022-09-20] MEDS ORDERED: NEOSTIGMINE 1 MG/ML -10 ML VIAL ONE (15:06)
[2022-09-20] MEDS ORDERED: GLYCOPYRROLATE 0.2 MG/ML SYR ONE (15:06)
[2022-09-20] MEDS: VANCOMYCIN 1.25 GM in NA CHLORIDE 0.9% 250 ML IVPB SCH (16:09)
--- NOTE | 2022-09-20 18:09 | OP ---
Date of Procedure: 09/20/2022 Surgeon: Praful Brown MD, Preoperative Diagnosis: Left below-knee amputation wound. Postoperative Diagnosis: Left below-knee amputation wound. Procedure Performed: Debridement of multiple left below-knee amputation wounds. Anesthesia: General endotracheal plus local with 0.25% Marcaine. Estimated Blood Loss: 5 cc. Specimen: Debridement tissue. Findings: Minimal superficial necrosis of the left BKA wound and posterior popliteal skin. Complications: None. Disposition: The patient was transferred to recovery room in good condition. Procedure In Detail: After informed consent was obtained, the patient was brought to the operating r oom, prepped and draped in the usual sterile fashion after adequate anesthesia was achieved. I made a curvilinear incision around a previously noted left lateral BKA wound which occurred after previous surgery. The wound had been chronic and nonhealing for some time. The patient had increased concer n of infection as he continued to have increasing of his seizure activity and was unsure if this was related to possibly infection that may be deep in his leg. He had no superficial drainage or any oth er complaints. However, the wound remained open. He has some additional superficial necrosis of his posterior popliteal region skin due to wrapping from nursing staff by his report. As such, I made a curvilinear incision around the area of superficial necrosis on the left lateral stump using a 10 bl nurys down to subcutaneous tissues. Electrocautery dissected down in to the muscular plane which was w rapped around. There was significant scar tissue in this area. I did not approach the fibula or tib ia at this point. I palpated the fibular area and did not find any obvious infection. There was no fluid collections consistent with any infectious process below the dissection plane that I achieved. I then sent this off for pathologic examination. I examined the remainder of the stump through the wound and could not determine there was any other evidence of infection in the deep space and as such I opted not to do a much more lengthy revision of this BKA as this appeared to be healing adequately at this point deep to the superficial necrosis as described above. After this was done, I achieved hemostasis with electrocautery. After this was completed, I packed the wound with Vashe soaked gauze as the wound edges would not reapproximate without tension. I then turned my attention to the poste rior popliteal skin. There was superficial necrosis of the area. A combination of sharp tenotomy sc issors and curette was able to clear this skin area from all superficial necrotic tissue. After this was performed, Vashe soaked gauze was placed on top of this too. The stump was then wrapped adequat manuel, and patient tolerated the procedure without complication and transferred to PACU in good conditi on. All counts correct at the end of the case. ROJAS/JEREMY Voice ID: [id number] Report ID: [id number]
[2022-09-20] MEDS: ATORVASTATIN 40 MG TAB PO SCH (20:13)
[2022-09-20 21:07] VITALS: BMI 29.2
[2022-09-20 21:40] VITALS: O2SAT 98
[2022-09-21] MEDS: INSULIN -REGULAR HUMAN 50 UNIT/0.5 ML ML SQ SCH ×3 (07:30→16:19)
[2022-09-21] MEDS: lisinopriL 5 MG TAB PO SCH (09:00)
[2022-09-21] MEDS: METOPROLOL TAR 25 MG TAB PO SCH (09:00)
[2022-09-21] MEDS: CEFEPIME 1 GM in NA CHLORIDE 0.9% 100 ML IV SCH (09:09)
[2022-09-21] MEDS: AMIODARONE HCL 200 MG TAB PO SCH (09:11)
[2022-09-21] MEDS: SERTRALINE HCL 100 MG TAB PO SCH (09:12)
[2022-09-21] MEDS: COLLAGENASE 30 GM OINTMENT TOP SCH (09:12)
[2022-09-21] MEDS: GABAPENTIN 400 MG CAP PO SCH ×2 (09:12→13:14)
[2022-09-21] MEDS: VALPROATE SODIUM INJ 500 MG in NA CHLORIDE 0.9% 100 ML IV SCH (09:59)
[2022-09-21] MEDS: levETIRAcetam 500 MG in NA CHLORIDE 0.9% 100 ML IV SCH (10:52)
--- NOTE | 2022-09-21 13:14 | P.PN ---
Subjective Date of Service: 09/21/22 Chief Complaint: Seizures, Left stump wound Subjective: Improving (Patient feels much better.) Physical Examination - Vital Signs Temperature: 97.0 F Blood Pressure: 134/54 Pulse: 57 Respirations: 18 Pulse Ox (%): 98 - Physical Exam General: Alert, In no apparent distress, Oriented x3 Respiratory: Clear to auscultation bilaterally Cardiovascular: Regular rate/rhythm Musculoskeletal: Other (LEFT BKA site is clean and dry, dressed well, no infection, no cellulitis or drainage) Assessment And Plan - Current Problems (Diagnosis) (1) Wound infection after surgery Current Visit: Yes Status: Acute Plan: Patient is a 57-year-old man who is status post debridement of his left BKA site which was performed at an outside facility, he developed a wound infection after his BKA at an outside facility and presented for debridement of his left BKA infected wound, -Patient is doing well after debridement of the left BKA cultures came back sensitive to Cipro, -Continue local wound care with Paula Lopez, daily dressing changes, Cipro x10 days, follow-up in my office in 1 week Okay to DC from a surgical standpoint, when medically cleared Physician Review: Patient Assessed, Agree with Above Assessment and Plan
[2022-09-21 14:44] LABS: Hematocrit 34.5 % (39.6-49.0)
--- NOTE | 2022-09-21 14:59 | P.DS ---
Admission Date: 09/18/22 Discharge Date: 09/21/22 Disposition: DC HOME/HOME HEALTH CARE Discharge Condition: FAIR Reason for Admission: Seizures, Left stump wound Brief History of Present Illness: Patient is a 57-year-old male with a past medical history significant for atrial fibrillation, DM 2, hypertension, seizures who presented with complaint of seizures. Patient reported that he went to see his wound Care MD for weekly wound care and while he was in the clinic patient started having seizures. Patient reported that he had 2 episodes of seizures. Nursing staff also indicated that patient had 1 seizure at home based on the report given to them by EMS. Patient reported associated signs and symptoms of nausea. Patient denies any other signs and symptoms. Symptoms are aggravated or relieved by nothing. Patient was brought to the hospital for medical evaluation. Patient noted to have a chronic nonhealing wound on his left BKA stump. MRI demonstrated an ulcer with sinus tract and possible osteomyelitis. Patient was hospitalized for further management. Hospital Course: Patient admitted to the medical floor and the following medical problems addressed: Left stump cellulitis\wound. Leg x-ray indicates findings of Cortical regularity involves the tibial stump. This is nonspecific but can be seen with osteomyelitis.. MRI left lower extremity suggested acute osteomyelitis and sinus containing fluid and gas. Blood cultures: No growth to date, no leukocytosis. Status post wound debridement by Dr. Brown. According to Dr. Brown, there was no bone involvement. Wound culture grew Pseudomonas fluor/putida sensitive to flouroquinolones. Dr. Brown recommended discharge with Ciprofloaxacine for outpatient treatment and daily wound care. Seizures. Neurology consulted. Continue Depakote and added Keppra per neurology recommendation. He was given loading dose Keppra, additional dose of Keppra IV preop. Dr. Aguilera recommended replacing Depakote with Keppra for outpatient treatment. DM2. Blood sugar readings were within normal Patient barely needed insulin coverage. Hemoglobin A1c is 6.7. Patient discharged with oral metformin. Insulin discontinued. Chronic atrial fibrillation. Held Eliquis and resumed it after surgery. Continued amiodarone. Hyperlipidemia. Continue statin. Hypertension. Continued home medication medications. Vital Signs/Physical Exam: Temp Pulse Resp BP Pulse Ox 97.0 F 57 18 134/54 L 98 09/21/22 13:14 09/21/22 13:14 09/21/22 13:14 09/21/22 13:14 09/21/22 13:14 General: Alert, In no apparent distress, Oriented x3 HEENT: Mucous membr. moist/pink Neck: JVD not distended Respiratory: Clear to auscultation bilaterally, Normal air movement Cardiovascular: Regular rate/rhythm, Normal S1 S2 Gastrointestinal: Soft and benign, Non-distended, No tenderness Integumentary: No cyanosis Neurological: Other (No focal motor deficits) Laboratory Data at Discharge: WBC 5.10 thou/uL (4.3-10.9) 09/19/22 03:31 Hgb 10.6 g/dL (13.6-17.9) L 09/19/22 03:31 Hct 32.7 % (39.6-49.0) L 09/19/22 03:31 Plt Count 312 thou/uL (152-406) 09/19/22 03:31 PT 13.3 SECONDS (9.5-12.5) H 09/18/22 10:55 INR 1.21 09/18/22 10:55 APTT 30.4 SECONDS (24.3-36.9) 09/18/22 10:55 Sodium 136 mEq/L (136-145) 09/20/22 06:12 Potassium 4.7 mEq/L (3.5-5.1) 09/20/22 06:12 BUN 26 mg/dL (7-18) H 09/20/22 06:12 Creatinine 1.02 mg/dL (0.70-1.30) 09/20/22 06:12 Glucose 129 mg/dL (74-106) H 09/20/22 06:12 Phosphorus 4.2 mg/dL (2.5-4.9) 09/20/22 06:12 Magnesium 2.4 mg/dL (1.6-2.4) 09/20/22 06:12 Total Bilirubin 0.2 mg/dL (0.2-1.0) 09/18/22 10:55 AST 14 U/L (15-37) L 09/18/22 10:55 ALT 24 U/L (16-61) 09/18/22 10:55 Alkaline Phosphatase 87 U/L (45-117) 09/18/22 10:55 Triglycerides 132 mg/dL (<150) 09/19/22 03:31 Cholesterol 108 mg/dL (<200) 09/19/22 03:31 HDL Cholesterol 31 mg/dL (40-60) L 09/19/22 03:31 Cholesterol/HDL Ratio 3.48 09/19/22 03:31 Home Medications: Amiodarone HCl [Cordarone*] 200 mg PO DAILY 08/15/22 Apixaban [Eliquis] 5 mg PO BID 08/15/22 Atorvastatin Calcium 40 mg PO BEDTIME 08/15/22 Gabapentin 400 mg PO TID 08/15/22 Metoprolol Tartrate 25 mg PO BID 08/15/22 Sertraline [Zoloft*] 100 mg PO DAILY 08/15/22 lisinopriL [Lisinopril] 5 mg PO DAILY 08/15/22 Ciprofloxacin HCl [Cipro] 500 mg PO BID #20 tab 09/21/22 Hydrocodone 10/APAP 325 [Walton 10/325*] 1 tab PO Q6H PRN #15 tab 09/21/22 Metformin HCl [Glucophage*] 500 mg PO BIDWM #60 tab 09/21/22 levETIRAcetam [Keppra] 500 mg PO BID #60 tab 09/21/22 New Medications: Ciprofloxacin HCl [Cipro] 500 mg PO BID #20 tab Metformin HCl [Glucophage*] 500 mg PO BIDWM #60 tab levETIRAcetam [Keppra] 500 mg PO BID #60 tab Hydrocodone 10/APAP 325 [[place] 10/325*] 1 tab PO Q6H PRN #15 tab PRN Reason: Pain Scale 5-7 (Moderate) Physician Discharge Instructions: Wound care: Paula Lopez, daily dressing changes. Diet: ADA Activity: Ad marisela Followup: Praful Brown MD [ACTIVE - CAN ADMIT] - 1 Week [facility] [Primary Care Provider] - Thad Aguilera MD [ASSOCIATE-ACTIVE - CAN ADMIT] - (Within 2 weeks.) Time spent managing pt's care (in minutes): 35
[2022-09-21] MEDS: VANCOMYCIN 1.25 GM in NA CHLORIDE 0.9% 250 ML IVPB SCH (16:00)
[2022-09-21 17:12] VITALS: BP 144/69; TEMP 97.1
== END 2022-09-21 18:30 | disposition home health service (06) | DRG 41 ==
LOC: ER 10:23 → ERHOLD 13:23 → 2ND 19:19
PROVIDERS: ADMIT Internal Medicine; ATTEND Internal Medicine
PROC: 0JBP0ZZ Excision of Left Lower Leg Subcutaneous Tissue and Fascia, Open Approach (ICD-10-PCS; principal; 2022-09-20 13:30)
DX: R56.9 Unspecified convulsions (principal); E11.52 Type 2 diabetes mellitus with diabetic peripheral angiopathy with gangrene; T87.44 Infection of amputation stump, left lower extremity; L03.116 Cellulitis of left lower limb; I48.20 Chronic atrial fibrillation, unspecified; M86.18 Other acute osteomyelitis, other site; E11.69 Type 2 diabetes mellitus with other specified complication; I48.91 Unspecified atrial fibrillation; E78.5 Hyperlipidemia, unspecified; I10 Essential (primary) hypertension; F17.210 Nicotine dependence, cigarettes, uncomplicated; B96.5 Pseudomonas (aeruginosa) (mallei) (pseudomallei) as the cause of diseases classified elsewhere; Z79.4 Long term (current) use of insulin; Z79.84 Long term (current) use of oral hypoglycemic drugs; Z79.01 Long term (current) use of anticoagulants; Z89.512 Acquired absence of left leg below knee; Z79.899 Other long term (current) drug therapy; Z91.013 Allergy to seafood; Z89.511 Acquired absence of right leg below knee; Y83.8 Other surgical procedures as the cause of abnormal reaction of the patient, or of later complication, without mention of misadventure at the time of the procedure
CPT/HCPCS: 36415; 70551; 71045; 80048; 80053; 80061; 80164; 80202; 80307; 81001; 82947; 83036; 83605; 83735; 84100; 85014; 85018; 85025; 85610; 85730; 87040; 87070; 87077; 87186; 87205; 88304; 93005; 96365; 99285; J0692; J1953; J2001; J2250; J2405; J2704; J2710; J3010; J3590; J7030; J7040; J7050

== ENCOUNTER 2022-09-26 22:53 | Observation (INO) | payer OTHER ==
--- OUTSIDE RECORDS SUMMARY | 2022-09-26 23:13 | XMS REPORT | Continuity of Care Document ---
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 Branch and 1 capsule at noon and 1 capsule in the evening. Do all this for 90 days. gabapentin 2023-0 2023- Yes [id number] 400mg Take 1 [facility] 400 mg 5-25 08-24 capsule by ity of capsule 00:00: 04:59 mouth in [place] 00 :00 the [facility] morning Branch and 1 capsule at noon and 1 capsule in the evening. Do all this for 90 days. gabapentin 2023-0 2023- Yes [id number] 400mg Take 1 [facility] 400 mg 5-25 08-24 capsule by ity of capsule 00:00: 04:59 mouth in [place] 00 :00 the [facility] morning Branch and 1 capsule at noon and 1 capsule in the evening. Do all this for 90 days. gabapentin 2022- Yes [id number] 400mg Take 1 [facility] 400 mg 5-25 08-24 capsule by ity of capsule 00:00: 04:59 mouth in [place] 00 :00 the Medical morning Branch and 1 capsule at noon and 1 capsule in the evening. Do all this for 90 days. gabapentin 2022- Yes [id number] 400mg Take 1 [facility] 400 mg 5-25 08-24 capsule by ity of capsule 00:00: 04:59 mouth in [place] 00 :00 the Medical morning Branch and 1 capsule at noon and 1 capsule in the evening. Do all this for 90 days. gabapentin 2022- Yes [id number] 400mg Take 1 [facility] 400 mg 5-25 08-24 capsule by ity of capsule 00:00: 04:59 mouth in [place] 00 :00 the Medical morning Branch and 1 capsule at noon and 1 capsule in the evening. Do all this for 90 days. Miscellaneo Yes Bilateral U nivers us Medical 5-23 prosthetic ity of Supply Misc 10:46: s - [facility] [place] [facility] 19 Medical Branch lancing Yes 1{each} Take 1 Unive rs device/lanc 5-23 Each in ity o f ets 10:46: the [place] (ACCU-CHEK 19 morning Medica l SOFT DEV [...] us Medical 5-23 prosthetic ity of Supply Mis 10:46: s - [facility] [place] 19 Medical Branch lancing 0 Yes 1{each} Take 1 Unive rs device/lanc 5-23 Each in ity o ets 10:46: the [place] (ACCU-CHEK 19 morning Medica l SOFT DEV and 1 Each Branc h LANCETS at noon MIS) and 1 Each in the evening. Miscellaneo 2022-0 Yes Bilateral U nivers us Medical 5-23 prosthetic ity of Supply Mis 10:46: s - [facility] [place] 19 Medical Branch lancing 0 Yes 1{each} Take 1 Unive rs device/lanc 5-23 Each in ity o ets 10:46: the [place] (ACCU-CHEK 19 morning Medica l SOFT DEV and 1 Each Branc h LANCETS at noon MIS) and 1 Each in the evening. SERTraline 2022-0 Yes [id number] 100mg Take 1 [facility] 100 mg 5-19 tablet by ity of tablet 00:00: mouth in [place] 00 the Medical morning. Branch SERTraline 2022-0 Yes [id number] 100mg Take 1 [facility] 100 mg 5-19 tablet by ity of tablet 00:00: mouth in [place] 00 the Medical morning. Branch SERTraline 2022-0 Yes [id number] 100mg Take 1 [facility] 100 mg 5-19 tablet by ity of tablet 00:00: mouth in [place] 00 the Medical morning. Branch SERTraline 2022-0 2023- No [id number] 100mg Take 1 [facility] 100 mg 5-19 05-25 tablet by ity of tablet 00:00: 00:00 mouth in [place] 00 :00 the Medical morning. Branch SERTraline 2022-2022- No [id number] 100mg Take 1 [facility] 100 mg 5-19 05-25 tablet by ity of tablet 00:00: 00:00 mouth in [place] 00 :00 the Medical morning. Branch SERTraline 2022-2022- No [id number] 100mg Take 1 [facility] 100 mg 5-19 05-25 tablet by ity of tablet 00:00: 00:00 mouth in [place] 00 :00 the Medical morning. Branch SERTraline 2022-0 2022- No [id number] 100mg Take 1 [facility] 100 mg 5-19 05-25 tablet by ity of tablet 00:00: 00:00 mouth in [place] 00 :00 the Medical morning. Branch blood sugar Yes [id number] Check U nivers diagnostic 5-18 blood ity of strip 00:00: sugar 2 [place] 00 times a Medical day. Branch E11.9. Brand per insurance. Uses ACCU-CHEK machine Lancets Yes [id number] Check Unive rs Misc 5-18 blood ity of 00:00: sugar 2 [place] 00 times a Medical day. Branch E11.9. Brand per insurance. amiodarone Yes [id number] 200mg Take 1 [facility] 200 mg 5-18 tablet by ity of tablet 00:00: mouth in [place] 00 the Medical morning. Branch apixaban 5 Yes 5mg Take 1 Unive rs mg tablet 5-18 tablet by ity o f 00:00: mouth in [place] 00 the Medical morning Branch and 1 tablet in the evening. Indication s: ATRIAL FIBRILLATI ON atorvastati Yes [id number] 40mg Take 1 [facility] n 40 mg 5-18 tablet by ity of tablet 00:00: mouth at [place] [address] bedtime. Medical Branch lisinopriL Yes [id number] 2.5mg Take 1 [facility] 2.5 mg 5-18 tablet by ity of tablet 00:00: mouth in [place] 00 the Medical morning. Branch metoprolol 2022- Yes [id number] 25mg Take 1 U nivers tartrate 25 5-18 tablet by ity of mg tablet 00:00: mouth [place] 00 the Medical morning Branch and 1 tablet in the evening. blood sugar 2022-0 Yes [id number] Check U nivers diagnostic 5-18 blood ity of strip 00:00: sugar 2 [place] times a Medical day. Branch E11.9. Brand per insurance. Uses ACCU-CHEK machine Lancets 2022-0 Yes [id number] Check Unive rs Misc 5-18 blood ity of 00:00: sugar 2 [place] 00 times a Medical day. Branch E11.9. Brand per insurance. amiodarone 2022-0 Yes [id number] 200mg Take 1 [facility] 200 mg 5-18 tablet by ity of tablet 00:00: mouth in [place] 00 the Medical morning. Branch apixaban 5 2022-0 Yes 5mg Take 1 Unive rs mg tablet 5-18 tablet by ity o f 00:00: mouth in [place] [address] the Medical morning Branch and 1 tablet in the evening. Indication s: ATRIAL FIBRILLATI ON atorvastati Yes [id number] 40mg Take 1 [facility] n 40 mg 5-18 tablet by ity of tablet 00:00: mouth at [place] [address] bedtime. Medical Branch lisinopriL 0 Yes [id number] 2.5mg Take 1 [facility] 2.5 mg 5-18 tablet by ity of tablet 00:00: mouth in [place] 00 the Medical morning. Branch metoprolol 0 Yes [id number] 25mg Take 1 U nivers tartrate 25 5-18 tablet by ity of mg tablet 00:00: mouth in [facility] s 00 the Medical morning Branch and 1 tablet in the evening. blood sugar 2022-0 Yes [id number] Check U nivers diagnostic 5-18 blood ity of strip 00:00: sugar 2 [place] 00 times a Medical day. Branch E11.9. Brand per insurance. Uses ACCU-CHEK machine Lancets 2022-0 Yes [id number] Check Unive rs Misc 5-18 blood ity of 00:00: sugar 2 [place] 00 times a Medical day. Branch E11.9. Brand per insurance. amiodarone 2022-0 Yes [id number] 200mg Take 1 [facility] 200 mg 5-18 tablet by ity of tablet 00:00: mouth in [place] 00 the Medical morning. Branch apixaban 5 2022-0 Yes 5mg Take 1 Unive rs mg tablet 5-18 tablet by ity o f 00:00: mouth in [place] 00 the Medical morning Branch and 1 tablet in the evening. Indication s: ATRIAL FIBRILLATI ON atorvastati 2022-0 Yes [id number] 40mg Take 1 [facility] n 40 mg 5-18 tablet by ity of tablet 00:00: mouth at [place] [address] bedtime. Medical Branch lisinopriL 2022-0 Yes [id number] 2.5mg Take 1 [facility] 2.5 mg 5-18 tablet by ity of tablet 00:00: mouth in [place] 00 the Medical morning. Branch metoprolol 0 Yes [id number] 25mg Take 1 U nivers tartrate 25 5-18 tablet by ity of mg tablet 00:00: mouth in [facility] the morning Branch and 1 tablet in the evening. blood sugar 0 Yes [id number] Check U nivers diagnostic 5-18 blood ity of strip 00:00: sugar 2 [place] 00 times a Medical day. Branch E11.9. Brand per insurance. Uses ACCU-CHEK machine Lancets Yes [id number] Check Unive rs Misc 5-18 blood ity of 00:00: sugar 2 [place] 00 times a Medical day. Branch E11.9. Brand per insurance. amiodarone 0 Yes [id number] 200mg Take 1 [facility] 200 mg 5-18 tablet by ity of tablet 00:00: mouth in [place] the morning. Branch apixaban 5 0 Yes 5mg Take 1 Unive rs mg tablet 5-18 tablet by ity o f 00:00: mouth in [place] the morning Branch and 1 tablet in the evening. Indication s: ATRIAL FIBRILLATI ON atorvastati 2022-0 Yes [id number] 40mg Take 1 [facility] n 40 mg 5-18 tablet by ity of tablet 00:00: mouth at [place] [address] bedtime. Medical Branch lisinopriL 2022-0 Yes [id number] 2.5mg Take 1 [facility] 2.5 mg 5-18 tablet by ity of tablet 00:00: mouth in [place] 00 the Medical morning. Branch metoprolol 2022-0 Yes [id number] 25mg Take 1 U nivers tartrate 25 5-18 tablet by ity of mg tablet 00:00: mouth [place] 00 the Medical morning Branch and 1 tablet in the evening. blood sugar 2022-0 Yes [id number] Check U nivers diagnostic 5-18 blood ity of strip 00:00: sugar 2 [place] 00 times a Medical day. Branch E11.9. Brand per insurance. Uses ACCU-CHEK machine Lancets 2022-0 Yes [id number] Check Unive rs Misc 5-18 blood ity of 00:00: sugar 2 [place] 00 times a Medical day. Branch E11.9. Brand per insurance. amiodarone 2022-0 Yes [id number] 200mg Take 1 [facility] 200 mg 5-18 tablet by ity of tablet 00:00: mouth in [place] 00 the Medical morning. Branch apixaban 5 2022-0 Yes 5mg Take 1 Unive rs mg tablet 5-18 tablet by ity o f 00:00: mouth in [place] 00 the Medical morning Branch and 1 tablet in the evening. Indication s: ATRIAL FIBRILLATI ON atorvastati 0 Yes [id number] 40mg Take 1 [facility] n 40 mg 5-18 tablet by ity of tablet 00:00: mouth at [place] 00 bedtime. Medical Branch lisinopriL 0 Yes [id number] 2.5mg Take 1 [facility] 2.5 mg 5-18 tablet by ity of tablet 00:00: mouth in [place] 00 the Medical morning. Branch metoprolol 0 Yes [id number] 25mg Take 1 U nivers tartrate 25 5-18 tablet by ity of mg tablet 00:00: mouth in [facility] s 00 the Medical morning Branch and 1 tablet in the evening. blood sugar 2022-0 Yes [id number] Check U nivers diagnostic 5-18 blood ity of strip 00:00: sugar 2 [place] 00 times a Medical day. Branch E11.9. Brand per insurance. Uses ACCU-CHEK machine Lancets 2022-0 Yes [id number] Check Unive rs Misc 5-18 blood ity of 00:00: sugar 2 [place] 00 times a Medical day. Branch E11.9. Brand per insurance. amiodarone 2022-0 Yes [id number] 200mg Take 1 [facility] 200 mg 5-18 tablet by ity of tablet 00:00: mouth in [place] 00 the Medical morning. Branch apixaban 5 2022-0 Yes 5mg Take 1 Unive rs mg tablet 5-18 tablet by ity o f 00:00: mouth in [place] 00 the Medical morning Branch and 1 tablet in the evening. Indication s: ATRIAL FIBRILLATI ON atorvastati 2022-0 Yes [id number] 40mg Take 1 [facility] n 40 mg 5-18 tablet by ity of tablet 00:00: mouth at [place] [address] bedtime. Medical Branch lisinopriL 2022-0 Yes [id number] 2.5mg Take 1 [facility] 2.5 mg 5-18 tablet by ity of tablet 00:00: mouth in [place] 00 the Medical morning. Branch metoprolol 0 Yes [id number] 25mg Take 1 U nivers tartrate 25 5-18 tablet by ity of mg tablet 00:00: mouth in [facility] the morning Branch and 1 tablet in the evening. blood sugar 0 Yes [id number] Check U nivers diagnostic 5-18 blood ity of strip 00:00: sugar 2 [place] 00 times a Medical day. Branch E11.9. Brand per insurance. Uses ACCU-CHEK machine Lancets Yes [id number] Check Unive rs Misc 5-18 blood ity of 00:00: sugar 2 [place] 00 times a Medical day. Branch E11.9. Brand per insurance. amiodarone 0 Yes [id number] 200mg Take 1 [facility] 200 mg 5-18 tablet by ity of tablet 00:00: mouth in [place] 00 the morning. Branch apixaban 5 0 Yes 5mg Take 1 Unive rs mg tablet 5-18 tablet by ity o f 00:00: mouth in [place] the morning Branch and 1 tablet in the evening. Indication s: ATRIAL FIBRILLATI ON atorvastati 2022-0 Yes [id number] 40mg Take 1 [facility] n 40 mg 5-18 tablet by ity of tablet 00:00: mouth at [place] [address] bedtime. Medical Branch lisinopriL 2022-0 Yes [id number] 2.5mg Take 1 [facility] 2.5 mg 5-18 tablet by ity of tablet 00:00: mouth in [place] 00 the Medical morning. Branch metoprolol 2022-0 Yes [id number] 25mg Take 1 U nivers tartrate 25 5-18 tablet by ity of mg tablet 00:00: mouth in [facility] the Medical morning Branch and 1 tablet in the evening. blood sugar 2022-0 Yes [id number] Check U nivers diagnostic 5-18 blood ity of strip 00:00: sugar 2 [place] 00 times a Medical day. Branch E11.9. Brand per insurance. Uses ACCU-CHEK machine Lancets 0 Yes [id number] Check Unive rs Misc 5-18 blood ity of 00:00: sugar 2 [place] 00 times a Medical day. Branch E11.9. Brand per insurance. amiodarone 2022-0 Yes [id number] 200mg Take 1 [facility] 200 mg 5-18 tablet by ity of tablet 00:00: mouth in [place] 00 the Medical morning. Branch apixaban 5 0 Yes 5mg Take 1 Unive rs mg tablet 5-18 tablet by ity o f 00:00: mouth in [place] 00 the Medical morning Branch and 1 tablet in the evening. Indication s: ATRIAL FIBRILLATI ON atorvastati 2022-0 Yes [id number] 40mg Take 1 [facility] n 40 mg 5-18 tablet by ity of tablet 00:00: mouth at [place] 00 bedtime. Medical Branch lisinopriL 0 Yes [id number] 2.5mg Take 1 [facility] 2.5 mg 5-18 tablet by ity of tablet 00:00: mouth in [place] 00 the Medical morning. Branch metoprolol 0 Yes [id number] 25mg Take 1 U nivers tartrate 25 5-18 tablet by ity of mg tablet 00:00: mouth in [facility] s 00 the Medical morning Branch and 1 tablet in the evening. Lancets 0 Yes [id number] Check Unive rs Misc 5-18 blood ity of 00:00: sugar 2 [place] 00 times a Medical day. Branch E11.9. Brand per insurance. amiodarone 2022-0 Yes [id number] 200mg Take 1 [facility] 200 mg 5-18 tablet by ity of tablet 00:00: mouth in [place] 00 the Medical morning. Branch apixaban 5 2022-0 Yes 5mg Take 1 Unive rs mg tablet 5-18 tablet by ity o f 00:00: mouth in [place] 00 the Medical morning Branch and 1 tablet in the evening. Indication s: ATRIAL FIBRILLATI ON atorvastati 2022-0 Yes [id number] 40mg Take 1 [facility] n 40 mg 5-18 tablet by ity of tablet 00:00: mouth at [place] [address] bedtime. Medical Branch lisinopriL 2022-0 Yes [id number] 2.5mg Take 1 [facility] 2.5 mg 5-18 tablet by ity of tablet 00:00: mouth in [place] the morning. Branch metoprolol 0 Yes [id number] 25mg Take 1 U nivers tartrate 25 5-18 tablet by ity of mg tablet 00:00: mouth in [facility] 00 the morning Branch and 1 tablet in the evening. blood sugar 2022-0 Yes [id number] Check U nivers diagnostic 5-18 blood ity of strip 00:00: sugar 2 [place] times a Medical day. Branch E11.9. Brand per insurance. Uses ACCU-CHEK machine Lancets Yes [id number] Check Unive rs Misc 5-18 blood ity of 00:00: sugar 2 [place] times a Medical day. Branch E11.9. Brand per insurance. amiodarone 0 Yes [id number] 200mg Take 1 [facility] 200 mg 5-18 tablet by ity of tablet 00:00: mouth in [place] the morning. Branch apixaban 5 0 Yes 5mg Take 1 Unive rs mg tablet 5-18 tablet by ity o f 00:00: mouth in [place] the morning Branch and 1 tablet in the evening. Indication s: ATRIAL FIBRILLATI ON atorvastati 0 Yes [id number] 40mg Take 1 [facility] n 40 mg 5-18 tablet by ity of tablet 00:00: mouth at [place] [address] bedtime. Medical Branch divalproex 2022-0 Yes [id number] 250mg Take 1 [facility] ER 250 mg 5-18 tablet by ity o f 24 hr 00:00: mouth [place] tablet 00 every 24 Medical (twenty-fo Branch ur) hours. gabapentin 2022-0 Yes [id number] 300mg Take 1 [facility] 300 mg 5-18 capsule by ity of capsule 00:00: mouth in [place] the morning Branch and 1 capsule at noon and 1 capsule in the evening. lisinopriL 2022-0 Yes [id number] 2.5mg Take 1 [facility] 2.5 mg 5-18 tablet by ity of tablet 00:00: mouth in [place] 00 the morning. Branch metoprolol Yes [id number] 25mg Take 1 U nivers tartrate 25 5-18 tablet by ity of mg tablet 00:00: mouth in [facility] s the morning Branch and 1 tablet in the evening. blood sugar 0 Yes [id number] Check U nivers diagnostic 5-18 blood ity of strip 00:00: sugar 2 [place] 00 times a Medical day. Branch E11.9. Brand per insurance. Uses ACCU-CHEK machine Lancets Yes [id number] Check Unive rs Misc 5-18 blood ity of 00:00: sugar 2 [place] 00 times a Medical day. Branch E11.9. Brand per insurance. amiodarone Yes [id number] 200mg Take 1 [facility] 200 mg 5-18 tablet by ity of tablet 00:00: mouth in [place] the morning. Branch apixaban 5 0 Yes 5mg Take 1 Unive rs mg tablet 5-18 tablet by ity o f 00:00: mouth in [place] the morning Branch and 1 tablet in the evening. Indication s: ATRIAL FIBRILLATI ON atorvastati Yes [id number] 40mg Take 1 [facility] n 40 mg 5-18 tablet by ity of tablet 00:00: mouth at [place] [address] bedtime. Medical Branch divalproex Yes [id number] 250mg Take 1 [facility] ER 250 mg 5-18 tablet by ity o f 24 hr 00:00: mouth [place] tablet 00 every 24 Medical (twenty-fo Branch ur) hours. gabapentin 0 Yes [id number] 300mg Take 1 [facility] 300 mg 5-18 capsule by ity of capsule 00:00: mouth in [place] 00 the morning Branch and 1 capsule at noon and 1 capsule in the evening. lisinopriL 0 Yes [id number] 2.5mg Take 1 [facility] 2.5 mg 5-18 tablet by ity of tablet 00:00: mouth in [place] the morning. Branch metoprolol Yes [id number] 25mg Take 1 U nivers tartrate 25 5-18 tablet by ity of mg tablet 00:00: mouth in [facility] s the morning Branch and 1 tablet in the evening. blood sugar Yes [id number] Check U nivers diagnostic 5-18 blood ity of strip 00:00: sugar 2 [place] 00 times a Medical day. Branch E11.9. Brand per insurance. Uses ACCU-CHEK machine Lancets Yes [id number] Check Unive rs Misc 5-18 blood ity of 00:00: sugar 2 [place] 00 times a Medical day. Branch E11.9. Brand per insurance. amiodarone Yes [id number] 200mg Take 1 [facility] 200 mg 5-18 tablet by ity of tablet 00:00: mouth in [place] 00 the morning. Branch apixaban 5 0 Yes 5mg Take 1 Unive rs mg tablet 5-18 tablet by ity o f 00:00: mouth in [place] the morning Branch and 1 tablet in the evening. Indication s: ATRIAL FIBRILLATI ON atorvastati Yes [id number] 40mg Take 1 [facility] n 40 mg 5-18 tablet by ity of tablet 00:00: mouth at [place] [address] bedtime. Medical Branch divalproex 0 Yes [id number] 250mg Take 1 [facility] ER 250 mg 5-18 tablet by ity o f 24 hr 00:00: mouth [place] tablet 00 every 24 Medical (twenty-fo Branch ur) hours. gabapentin 0 Yes [id number] 300mg Take 1 [facility] 300 mg 5-18 capsule by ity of capsule 00:00: mouth in [place] the morning Branch and 1 capsule at noon and 1 capsule in the evening. lisinopriL Yes [id number] 2.5mg Take 1 [facility] 2.5 mg 5-18 tablet by ity of tablet 00:00: mouth in [place] 00 the morning. Branch metoprolol Yes [id number] 25mg Take 1 U nivers tartrate 25 5-18 tablet by ity of mg tablet 00:00: mouth in [facility] 00 the morning Branch and 1 tablet in the evening. blood sugar 0 Yes [id number] Check U nivers diagnostic 5-18 blood ity of strip 00:00: sugar 2 [place] 00 times a Medical day. Branch E11.9. Brand per insurance. Uses ACCU-CHEK machine Lancets 0 Yes [id number] Check Unive rs Misc 5-18 blood ity of 00:00: sugar 2 [place] times a Medical day. Branch E11.9. Brand per insurance. amiodarone Yes [id number] 200mg Take 1 [facility] 200 mg 5-18 tablet by ity of tablet 00:00: mouth in [place] 00 the morning. Branch apixaban 5 0 Yes 5mg Take 1 Unive rs mg tablet 5-18 tablet by ity o f 00:00: mouth in [place] the morning Branch and 1 tablet in the evening. Indication s: ATRIAL FIBRILLATI ON atorvastati Yes [id number] 40mg Take 1 [facility] n 40 mg 5-18 tablet by ity of tablet 00:00: mouth at [place] [address] bedtime. Medical Branch divalproex Yes [id number] 250mg Take 1 [facility] ER 250 mg 5-18 tablet by ity o f 24 hr 00:00: mouth [place] tablet 00 every 24 Medical (twenty-fo Branch ur) hours. gabapentin Yes [id number] 300mg Take 1 [facility] 300 mg 5-18 capsule by ity of capsule 00:00: mouth in [place] the morning Branch and 1 capsule at noon and 1 capsule in the evening. lisinopriL Yes [id number] 2.5mg Take 1 [facility] 2.5 mg 5-18 tablet by ity of tablet 00:00: mouth in [place] the morning. Branch metoprolol Yes [id number] 25mg Take 1 U nivers tartrate 25 5-18 tablet by ity of mg tablet 00:00: mouth in [facility] the morning Branch and 1 tablet in the evening. blood sugar Yes [id number] Check U nivers diagnostic 5-18 blood ity of strip 00:00: sugar 2 [place] 00 times a Medical day. Branch E11.9. Brand per insurance. Uses ACCU-CHEK machine Lancets Yes [id number] Check Unive rs Misc 5-18 blood ity of 00:00: sugar 2 [place] 00 times a Medical day. Branch E11.9. Brand per insurance. amiodarone Yes [id number] 200mg Take 1 [facility] 200 mg 5-18 tablet by ity of tablet 00:00: mouth in [place] 00 the morning. Branch apixaban 5 Yes 5mg Take 1 Unive rs mg tablet 5-18 tablet by ity o f 00:00: mouth in [place] 00 the morning Branch and 1 tablet in the evening. Indication s: ATRIAL FIBRILLATI ON atorvastati Yes [id number] 40mg Take 1 [facility] n 40 mg 5-18 tablet by ity of tablet 00:00: mouth at [place] 00 bedtime. Medical Branch divalproex Yes [id number] 250mg Take 1 [facility] ER 250 mg 5-18 tablet by ity o f 24 hr 00:00: mouth [place] tablet 00 every 24 Medical (twenty-fo Branch ur) hours. gabapentin Yes [id number] 300mg Take 1 [facility] 300 mg 5-18 capsule by ity of capsule 00:00: mouth in [place] 00 the morning Branch and 1 capsule at noon and 1 capsule in the evening. lisinopriL Yes [id number] 2.5mg Take 1 [facility] 2.5 mg 5-18 tablet by ity of tablet 00:00: mouth in [place] 00 the morning. Branch metoprolol Yes [id number] 25mg Take 1 U nivers tartrate 25 5-18 tablet by ity of mg tablet 00:00: mouth in [facility] 00 the morning Branch and 1 tablet in the evening. blood sugar Yes [id number] Check U nivers diagnostic 5-18 blood ity of strip 00:00: sugar 2 [place] 00 times a Medical day. Branch E11.9. Brand per insurance. Uses ACCU-CHEK machine Lancets Yes [id number] Check Unive rs Misc 5-18 blood ity of 00:00: sugar 2 [place] 00 times a Medical day. Branch E11.9. Brand per insurance. amiodarone Yes [id number] 200mg Take 1 [facility] 200 mg 5-18 tablet by ity of tablet 00:00: mouth in [place] 00 the morning. Branch apixaban 5 Yes 5mg Take 1 Unive rs mg tablet 5-18 tablet by ity o f 00:00: mouth in [place] 00 the morning Branch and 1 tablet in the evening. Indication s: ATRIAL FIBRILLATI ON atorvastati Yes [id number] 40mg Take 1 [facility] n 40 mg 5-18 tablet by ity of tablet 00:00: mouth at [place] 00 bedtime. Medical Branch lisinopriL 2022-0 Yes [id number] 2.5mg Take 1 [facility] 2.5 mg 5-18 tablet by ity of tablet 00:00: mouth in [place] 00 the Medical morning. Branch metoprolol 2022-0 Yes [id number] 25mg Take 1 U nivers tartrate 25 5-18 tablet by ity of mg tablet 00:00: mouth in [place] the Medical morning Branch and 1 tablet in the evening. blood sugar 2022-0 Yes [id number] Check U nivers diagnostic 5-18 blood ity of strip 00:00: sugar 2 [place] 00 times a Medical day. Branch E11.9. Brand per insurance. Uses ACCU-CHEK machine Lancets 2022-0 Yes [id number] Check Unive rs Misc 5-18 blood ity of 00:00: sugar 2 [place] 00 times a Medical day. Branch E11.9. Brand per insurance. amiodarone 0 Yes [id number] 200mg Take 1 [facility] 200 mg 5-18 tablet by ity of tablet 00:00: mouth in [place] 00 the morning. Branch apixaban 5 2022-0 Yes 5mg Take 1 Unive rs mg tablet 5-18 tablet by ity o f 00:00: mouth in [place] 00 the morning Branch and 1 tablet in the evening. Indication s: ATRIAL FIBRILLATI ON atorvastati 2022-0 Yes [id number] 40mg Take 1 [facility] n 40 mg 5-18 tablet by ity of tablet 00:00: mouth at [place] 00 bedtime. Medical Branch lisinopriL 2022-0 Yes [id number] 2.5mg Take 1 [facility] 2.5 mg 5-18 tablet by ity of tablet 00:00: mouth in [place] 00 the Medical morning. Branch metoprolol 2022-0 Yes [id number] 25mg Take 1 U nivers tartrate 25 5-18 tablet by ity of mg tablet 00:00: mouth in [place] 00 the Medical morning Branch and 1 tablet in the evening. blood sugar 2022-0 Yes [id number] Check U nivers diagnostic 5-18 blood ity of strip 00:00: sugar 2 [place] 00 times a Medical day. Branch E11.9. Brand per insurance. Uses ACCU-CHEK machine Lancets Yes [id number] Check Unive rs Misc 5-18 blood ity of 00:00: sugar 2 [place] 00 times a Medical day. Branch E11.9. Brand per insurance. amiodarone 2022-0 Yes [id number] 200mg Take 1 [facility] 200 mg 5-18 tablet by ity of tablet 00:00: mouth in [place] 00 the Medical morning. Branch apixaban 5 2022-0 Yes 5mg Take 1 Unive rs mg tablet 5-18 tablet by ity o f 00:00: mouth in [place] 00 the Medical morning Branch and 1 tablet in the evening. Indication s: ATRIAL FIBRILLATI ON atorvastati 2022-0 Yes [id number] 40mg Take 1 [facility] n 40 mg 5-18 tablet by ity of tablet 00:00: mouth at [place] 00 bedtime. Medical Branch lisinopriL Yes [id number] 2.5mg Take 1 [facility] 2.5 mg 5-18 tablet by ity of tablet 00:00: mouth in [place] 00 the Medical morning. Branch metoprolol Yes [id number] 25mg Take 1 U nivers tartrate 25 5-18 tablet by ity of mg tablet 00:00: mouth in [facility] 00 the Medical morning Branch and 1 tablet in the evening. blood sugar 0 Yes [id number] Check U nivers diagnostic 5-18 blood ity of strip 00:00: sugar 2 [place] 00 times a Medical day. Branch E11.9. Brand per insurance. Uses ACCU-CHEK machine Lancets 0 Yes [id number] Check Unive rs Misc 5-18 blood ity of 00:00: sugar 2 [place] 00 times a Medical day. Branch E11.9. Brand per insurance. amiodarone 2022-0 Yes [id number] 200mg Take 1 [facility] 200 mg 5-18 tablet by ity of tablet 00:00: mouth in [place] 00 the Medical morning. Branch apixaban 5 2022-0 Yes 5mg Take 1 Unive rs mg tablet 5-18 tablet by ity o f 00:00: mouth in [place] 00 the Medical morning Branch and 1 tablet in the evening. Indication s: ATRIAL FIBRILLATI ON atorvastati 2022-0 Yes [id number] 40mg Take 1 [facility] n 40 mg 5-18 tablet by ity of tablet 00:00: mouth at [place] 00 bedtime. Medical Branch lisinopriL 2022-0 Yes [id number] 2.5mg Take 1 [facility] 2.5 mg 5-18 tablet by ity of tablet 00:00: mouth in [place] 00 the morning. Branch metoprolol 0 Yes [id number] 25mg Take 1 U nivers tartrate 25 5-18 tablet by ity of mg tablet 00:00: [place] 00 the Medical morning Branch and 1 tablet in the evening. blood sugar 2022-0 Yes [id number] Check U nivers diagnostic 5-18 blood ity of strip 00:00: sugar 2 [place] 00 times a Medical day. Branch E11.9. Brand per insurance. Uses ACCU-CHEK machine Lancets 2022-0 Yes [id number] Check Unive rs Misc 5-18 blood ity of 00:00: sugar 2 [place] 00 times a Medical day. Branch E11.9. Brand per insurance. amiodarone Yes [id number] 200mg Take 1 [facility] 200 mg 5-18 tablet by ity of tablet 00:00: mouth in [place] 00 the morning. Branch apixaban 5 0 Yes 5mg Take 1 Unive rs mg tablet 5-18 tablet by ity o f 00:00: mouth in [place] 00 the morning Branch and 1 tablet in the evening. Indication s: ATRIAL FIBRILLATI ON atorvastati 0 Yes [id number] 40mg Take 1 [facility] n 40 mg 5-18 tablet by ity of tablet 00:00: mouth at [place] 00 bedtime. Medical Branch lisinopriL 2022-0 Yes [id number] 2.5mg Take 1 [facility] 2.5 mg 5-18 tablet by ity of tablet 00:00: mouth in [place] 00 the morning. Branch metoprolol 2022-0 Yes [id number] 25mg Take 1 U nivers tartrate 25 5-18 tablet by ity of mg tablet 00:00: mouth in [facility] s 00 the Medical morning Branch and 1 tablet in the evening. blood sugar 2022-0 Yes [id number] Check U nivers diagnostic 5-18 blood ity of strip 00:00: sugar 2 [place] 00 times a Medical day. Branch E11.9. Brand per insurance. Uses ACCU-CHEK machine Lancets Yes [id number] Check Unive rs Misc 5-18 blood ity of 00:00: sugar 2 [place] 00 times a Medical day. Branch E11.9. Brand per insurance. amiodarone Yes [id number] 200mg Take 1 [facility] 200 mg 5-18 tablet by ity of tablet 00:00: mouth in [place] 00 the Medical morning. Branch apixaban 5 2022-0 Yes 5mg Take 1 Unive rs mg tablet 5-18 tablet by ity o f 00:00: mouth in [place] 00 the Medical morning Branch and 1 tablet in the evening. Indication s: ATRIAL FIBRILLATI ON atorvastati Yes [id number] 40mg Take 1 [facility] n 40 mg 5-18 tablet by ity of tablet 00:00: mouth at [place] [address] bedtime. Medical Branch lisinopriL Yes [id number] 2.5mg Take 1 [facility] 2.5 mg 5-18 tablet by ity of tablet 00:00: mouth in [place] 00 the Medical morning. Branch metoprolol Yes [id number] 25mg Take 1 U nivers tartrate 25 5-18 tablet by ity of mg tablet 00:00: mouth in [facility] 00 the Medical morning Branch and 1 tablet in the evening. blood sugar Yes [id number] Check U nivers diagnostic 5-18 blood ity of strip 00:00: sugar 2 [place] 00 times a Medical day. Branch E11.9. Brand per insurance. Uses ACCU-CHEK machine Lancets 0 Yes [id number] Check Unive rs Misc 5-18 blood ity of 00:00: sugar 2 [place] 00 times a Medical day. Branch E11.9. Brand per insurance. amiodarone Yes [id number] 200mg Take 1 [facility] 200 mg 5-18 tablet by ity of tablet 00:00: mouth in [place] 00 the Medical morning. Branch apixaban 5 0 Yes 5mg Take 1 Unive rs mg tablet 5-18 tablet by ity o f 00:00: mouth in [place] 00 the Medical morning Branch and 1 tablet in the evening. Indication s: ATRIAL FIBRILLATI ON atorvastati 2022-0 Yes [id number] 40mg Take 1 [facility] n 40 mg 5-18 tablet by ity of tablet 00:00: mouth at [place] 00 bedtime. Medical Branch lisinopriL 0 Yes [id number] 2.5mg Take 1 [facility] 2.5 mg 5-18 tablet by ity of tablet 00:00: mouth in [place] 00 the Medical morning. Branch metoprolol 0 Yes [id number] 25mg Take 1 U nivers tartrate 25 5-18 tablet by ity of mg tablet 00:00: mouth in [facility] s 00 the Medical morning Branch and 1 tablet in the evening. blood sugar 2022- No [id number] Check Univers diagnostic 5-18 09-25 blood ity of strip 00:00: 00:00 sugar 2 [place] 00 :00 times a Medical day. Branch E11.9. Brand per insurance. Uses ACCU-CHEK machine divalproex 2022- No [id number] 250mg Take 1 [facility] ER 250 mg 5-18 05-25 tablet by ity of 24 hr 00:00: 00:00 mouth [place] tablet 00 :00 every 24 Medical ([facility] Branch ur) hours. gabapentin 2022- No [id number] 300mg Take 1 [facility] 300 mg 5-18 05-25 capsule by ity of capsule 00:00: 00:00 mouth in [place] 00 :00 the Medical morning Branch and 1 capsule at noon and 1 capsule in the evening. divalproex 2022- No [id number] 250mg Take 1 [facility] ER 250 mg 5-18 05-25 tablet by ity of 24 hr 00:00: 00:00 mouth [place] tablet 00 :00 every 24 Medical ([facility] Branch ur) hours. gabapentin 2022- No [id number] 300mg Take 1 [facility] 300 mg 5-18 05-25 capsule by ity of capsule 00:00: 00:00 mouth in [place] 00 :00 the Medical morning Branch and 1 capsule at noon and 1 capsule in the evening. divalproex 2022-2022- No [id number] 250mg Take 1 [facility] ER 250 mg 5-18 05-25 tablet by ity of 24 hr 00:00: 00:00 mouth [place] tablet 00 :00 every 24 Medical ([facility] Branch ur) hours. gabapentin 2022-2022- No [id number] 300mg Take 1 [facility] 300 mg 5-18 05-25 capsule by ity of capsule 00:00: 00:00 mouth in [place] 00 :00 the Medical morning Branch and 1 capsule at noon and 1 capsule in the evening. divalproex 2022-0 2022- No [id number] 250mg Take 1 [facility] ER 250 mg 5-18 05-25 tablet by ity of 24 hr 00:00: 00:00 mouth [place] tablet 00 :00 every 24 Medical (twenty-fo Branch ur) hours. gabapentin 2022-0 2022- No [id number] 300mg Take 1 [facility] 300 mg 5-18 05-25 capsule by ity of capsule 00:00: 00:00 mouth in [place] 00 :00 [...] dose, On 08/14/22 at 0030, STAT divalproex 3-0 Yes [id number] 250mg Take 1 [facility] ER 250 mg 4-26 tablet by ity o f 24 hr 00:00: mouth [place] tablet 00 every 24 Medical (twenty-fo Branch ur) hours. divalproex 3-0 Yes [id number] 250mg Take 1 [facility] ER 250 mg 4-26 tablet by ity o f 24 hr 00:00: mouth [place] tablet 00 every 24 Medical (twenty-fo Branch ur) hours. divalproex 2023-0 Yes [id number] 250mg Take 1 [facility] ER 250 mg 4-26 tablet by ity o f 24 hr 00:00: mouth [place] tablet 00 every 24 Medical (twenty-fo Branch ur) hours. divalproex 2023-0 Yes [id number] 250mg Take 1 [facility] ER 250 mg 4-26 tablet by ity o f 24 hr 00:00: mouth [place] tablet 00 every 24 Medical (twenty-fo Branch ur) hours. divalproex 2023-0 Yes [id number] 250mg Take 1 [facility] ER 250 mg 4-26 tablet by ity o f 24 hr 00:00: mouth [place] tablet 00 every 24 Medical (twenty-fo Branch ur) hours. divalproex 2023-0 Yes [id number] 250mg Take 1 [facility] ER 250 mg 4-26 tablet by ity o f 24 hr 00:00: mouth [place] tablet 00 every 24 Medical (twenty-fo Branch ur) hours. divalproex 2023-0 Yes [id number] 250mg Take 1 [facility] ER 250 mg 4-26 tablet by ity o f 24 hr 00:00: mouth [place] tablet 00 every 24 Medical (twenty-fo Branch ur) hours. divalproex 2023-0 Yes [id number] 250mg Take 1 [facility] ER 250 mg 4-26 tablet by ity o f 24 hr 00:00: mouth [place] tablet 00 every 24 Medical (twenty-fo Branch ur) hours. divalproex 2023-0 Yes [id number] 250mg Take 1 [facility] ER 250 mg 4-26 tablet by ity o f 24 hr 00:00: mouth [place] tablet 00 every 24 Medical (twenty-fo Branch ur) hours. divalproex 2023-0 Yes [id number] 250mg Take 1 [facility] ER 250 mg 4-26 tablet by ity o f 24 hr 00:00: mouth [place] tablet 00 every 24 Medical (twenty-fo Branch ur) hours. divalproex 2023-0 Yes [id number] 250mg Take 1 [facility] ER 250 mg 4-26 tablet by ity o f 24 hr 00:00: mouth [place] tablet 00 every 24 Medical (twenty-fo Branch ur) hours. divalproex 2023-0 Yes [id number] 250mg Take 1 [facility] ER 250 mg 4-26 tablet by ity o f 24 hr 00:00: mouth [place] tablet 00 every 24 Medical (twenty-fo Branch ur) hours. divalproex No [id number] 250mg Take 1 [facility] ER 250 mg [...] in ity o f ets 14:20: the [place] (ACCU-CHEK 29 morning Medica l SOFT DEV [...] in ity o f ets 14:20: the [place] (ACCU-CHEK 29 morning Medica l SOFT DEV [...] 1 [facility] the [place] (ACCU-CHEK 29 morning Medica l SOFT DEV and 1 Each Branc h LANCETS at noon MISC) and 1 Each in the evening. lancing 2022-0 Yes 1{each} Take 1 Unive rs device/lanc 4-17 Each in [facility] ets 14:20: the [place] (ACCU-CHEK 29 morning Medica l SOFT DEV and 1 Each Branc h LANCETS at noon MISC) and 1 Each in the evening. lancing 2022-0 Yes 1{each} Take 1 Unive rs device/lanc 4-17 Each in [facility] ets 14:20: the [place] (ACCU-CHEK 29 morning Medica l SOFT DEV and 1 Each Branc h LANCETS at noon MISC) and 1 Each in the evening. lancing 2022-0 Yes 1{each} Take 1 Unive rs device/lanc 4-17 Each in [facility] ets 14:20: the [place] (ACCU-CHEK 29 morning Medica l SOFT DEV and 1 Each Branc h LANCETS at noon MISC) and 1 Each in the evening. lancing 2022-0 Yes 1{each} Take 1 [facility] device[facility] 4-[facility]: the [place] (ACCU-CHEK 29 morning Medica l SOFT DEV and 1 Each Branc h LANCETS at noon MISC) and 1 Each in the evening. lancing 2022-0 Yes 1{each} Take 1 [facility] rs device[facility]lanc 4-[facility]: the [place] (ACCU-CHEK 29 morning Medica l SOFT DEV and 1 Each Branc h LANCETS at noon MISC) and 1 Each in the evening. lancing Yes 1{each} Take 1 Unive rs device/lanc 4-17 Each in [facility] ets 14:20: the [place] (ACCU-CHEK 29 morning Medica l SOFT DEV and 1 Each Branc h LANCETS at noon MISC) and 1 Each in the evening. lancing Yes 1{each} Take 1 Unive rs device/lanc 4-17 Each in [facility] ets 14:20: the [place] (ACCU-CHEK 29 morning Medica l SOFT DEV and 1 Each Branc h LANCETS at noon MISC) and 1 Each in the evening. lancing 0 Yes 1{each} Take 1 Unive rs device/lanc 4-17 Each in [facility] ets 14:20: the [place] (ACCU-CHEK 29 morning Medica l SOFT DEV and 1 Each Branc h LANCETS at noon MISC) and 1 Each in the evening. lancing Yes 1{each} Take 1 Unive rs device/lanc 4-17 Each in [facility] ets 14:20: the [place] (ACCU-CHEK 29 morning Medica l SOFT DEV and 1 Each Branc h LANCETS at noon MISC) and 1 Each in the evening. lancing 0 Yes 1{each} Take 1 Unive rs device/lanc 4-17 Each in [facility] ets 14:20: the [place] (ACCU-CHEK 29 morning Medica l SOFT DEV and 1 Each Branc h LANCETS at noon MISC) and 1 Each in the evening. lancing 0 Yes 1{each} Take 1 Unive rs device/lanc 4-17 Each in [facility] ets 14:20: the [place] (ACCU-CHEK 29 morning Medica l SOFT DEV and 1 Each Branc h LANCETS at noon MISC) and 1 Each in the evening. lancing Yes 1{each} Take 1 Unive rs device/lanc 4-17 Each in [facility] ets 14:20: the [place] (ACCU-CHEK 29 morning Medica l SOFT DEV and 1 Each Branc h LANCETS at noon MISC) and 1 Each in the evening. lancing 0 Yes 1{each} Take 1 Unive rs device/lanc 4-17 Each in ity o ets 14:20: the [place] (ACCU-CHEK 29 morning Medica l SOFT DEV and 1 Each Branc h LANCETS [place] [facility] and 1 Each in the evening. lancing 2022-0 Yes 1{each} Take 1 Unive rs device/lanc 4-17 Each in ity o ets 14:20: the [place] (ACCU-CHEK 29 morning Medica l SOFT DEV and 1 Each Branc h LANCETS [place] [facility] and 1 Each in the evening. lancing 2022-0 Yes 1{each} Take 1 Unive rs device/lanc 4-17 Each in ity o ets 14:20: the [place] (ACCU-CHEK 29 morning Medica l SOFT DEV and 1 Each Branc h LANCETS at on [facility] and 1 Each in the evening. lisinopriL 2022- 202- No 2.5mg Take 1 Uni vers 2.5 mg 4-17 04-17 tablet by ity of tablet 14:01: 00:00 mouth in [place] 18 :00 the Medical morning. Branch gabapentin 2022-0 2022- No 300mg Take 1 Uni vers 300 mg 4-17 04-17 capsule by ity of capsule 14:01: 00:00 mouth in [place] 18 :00 the Medical morning. Branch atorvastati 2022-0 2022- No 40mg Take 1 Uni vers n 40 mg 4-17 04-17 tablet by ity of tablet 14:01: 00:00 mouth at [place] 18 :00 bedtime. Medical Branch apixaban 5 2022-0 2022- No 5mg Take 1 Univ ers mg tablet 4-17 04-17 tablet by ity of 14:01: 00:00 mouth [place] 18 :00 every 12 Medical (twelve) Branch hours. metoprolol 2022-0 2022- No 25mg Take 1 Univ ers tartrate 25 4-17 04-17 tablet by it y of mg tablet 14:01: 00:00 mouth in [facility] as 18 :00 the Medical morning Branch and 1 tablet in the evening. lisinopriL 2022-0 2022- No 2.5mg Take 1 Uni vers [...] ity of tablet 14:01: 00:00 mouth at [place] 18 :00 bedtime. Medical Branch apixaban 5 2022-0 2023- No 5mg Take 1 Univ ers mg tablet 4-17 04-17 tablet by ity of 14:01: 00:00 mouth [place] 18 :00 every 12 Medical (twelve) Branch hours. metoprolol 3-0 2023- No 25mg Take 1 Univ ers tartrate 25 4-17 04-17 tablet by it y of mg tablet 14:01: 00:00 mouth in [facility] as 18 :00 the Medical morning Branch and 1 tablet in the evening. lisinopriL 2022-0 2023- No 2.5mg Take 1 Uni vers 2.5 mg 4-17 04-17 tablet by ity of tablet 14:01: 00:00 mouth in [place] 18 :00 the Medical morning. Branch gabapentin 2022-0 3- No 300mg Take 1 Uni vers 300 mg 4-17 04-17 capsule by ity of capsule 14:01: 00:00 mouth in [place] 18 :00 the Medical morning. Branch atorvastati 2022-0 3- No 40mg Take 1 Uni vers n 40 mg 4-17 04-17 tablet by ity of tablet 14:01: 00:00 mouth at [place] 18 :00 bedtime. Medical Branch apixaban 5 2022-0 3- No 5mg Take 1 Univ ers mg tablet 4-17 04-17 tablet by ity of 14:01: 00:00 mouth [place] 18 :00 every 12 Medical (twelve) Branch hours. metoprolol 3-0 2023- No 25mg Take 1 Univ ers tartrate 25 4-17 04-17 tablet by it y of mg tablet 14:01: 00:00 mouth in [facility] as 18 :00 the Medical morning Branch and 1 tablet in the evening. SERTraline 3-0 2023- No 25mg Take 1 Univ ers 25 mg 4-17 04-17 tablet by ity of tablet 14:01: 00:00 mouth in [place] 12 :00 the Medical morning. Branch SERTraline 0 2022- No 25mg Take 1 Univ ers 25 mg 4-17 -17 tablet by ity of tablet 14:01: 00:00 mouth in [place] 12 :00 the Medical morning. Branch SERTraline 2022- No 25mg Take 1 Univ ers 25 mg 4-17 -17 tablet by ity of tablet 14:01: 00:00 mouth in [place] 12 :00 the Medical morning. Branch Miscellaneo 0 Yes Bilateral U nivers [...] Suhas as 61 Medical Branch insulin NPH 2022-0 Yes inject [...] ity of GLARGINE-YF 13:33: skin. As Rolando [place] 22 directed Medical Branch insulin NPH 2022-0 Yes inject Univ ers human 4-17 under the ity of isophane 13:33: skin. Abdi (HUMULIN N 22 Unsure of [facility] dilshad PEN IN) what kind Branch of humulin insulin he takes SEMGLEE,INS 2022-0 Yes inject Univ ers ULIN 4-17 under the ity of GLARGINE-YF 13:33: skin. As AURELIO Quintanilla 22 directed Medical Branch insulin NPH 2022-0 Yes inject Univ ers human 4-17 under the ity of isophane 13:33: skin. Abdi (HUMULIN N 22 Unsure of [facility] dilshad PEN IN) what kind Branch of humulin insulin he takes SEMGLEE,INS 2022-0 Yes inject Univ ers ULIN 4-17 under the ity of GLARGINE-YF 13:33: skin. As AURELIO Quintan[place] 22 directed Medical Branch insulin NPH 2022-0 Yes inject Univ ers human 4-17 under the ity of isophane 13:33: skin. Abdi (HUMULIN N 22 Unsure of [facility] dilshad [facility]) what kind Branch of humulin insulin he takes SEMGLEE,INS 3-0 Yes inject Univ ers ULIN 4-17 under the ity of GLARGINE-YF 13:33: skin. As AURELIO Quintanilla 22 directed Medical Branch insulin NPH 2022-0 Yes inject Univ ers human 4-17 under the ity of isophane 13:33: skin. Abdi (HUMULIN N 22 Unsure of [facility] dilshad PEN IN) what kind Branch of humulin insulin he takes SEMGLEE,INS 3-0 Yes inject Univ ers ULIN 4-17 under the ity of GLARGINE-YF 13:33: skin. As AURELIO Quintan[place] 22 directed Medical Branch insulin NPH 2022-0 Yes inject Univ ers human 4-17 under the ity of isophane 13:33: skin. Abdi (HUMULIN N 22 Unsure of [facility] dilshad PEN IN) what kind Branch of humulin insulin he takes SEMGLEE,INS 2023-0 Yes inject Univ ers ULIN 4-17 under the ity of GLARGINE-YF 13:33: skin. As AURELIO Quintanilla 22 directed Medical Branch insulin NPH 2022-0 Yes inject Univ ers human 4-17 under the ity of isophane 13:33: skin. Abdi (HUMULIN N 22 Unsure of Medi dilshad PEN IN) what kind Branch of humulin insulin he takes SEMGLEE,INS 2023-0 Yes inject Univ ers ULIN 4-17 under the ity of GLARGINE-YF 13:33: skin. As AURELIO Quintanilla 22 directed Medical Branch insulin NPH 2022-0 Yes inject Univ ers human 4-17 under the ity of isophane 13:33: skin. Abdi (HUMULIN N 22 Unsure of Medi dilshad PEN IN) what kind Branch of humulin insulin he takes SEMGLEE,INS 2023-0 Yes inject Univ ers ULIN 4-17 under the ity of GLARGINE-YF 13:33: skin. As AURELIO Quintanilla 22 directed Medical Branch insulin NPH 2022-0 Yes inject Univ ers human 4-17 under the ity of isophane 13:33: skin. Abdi (HUMULIN N 22 Unsure of Medi dilshad PEN IN) what kind Branch of humulin insulin he takes SEMGLEE,INS 2023-0 Yes inject Univ ers ULIN 4-17 under the ity of GLARGINE-YF 13:33: skin. As AURELIO Quintanilla 22 directed Medical Branch insulin NPH 2022-0 Yes inject Univ ers human 4-17 under the ity of isophane 13:33: skin. Abdi (HUMULIN N 22 Unsure of Medi dilshad PEN IN) what kind Branch of humulin insulin he takes SEMGLEE,INS 2023-0 Yes inject Univ ers ULIN 4-17 under the ity of GLARGINE-YF 13:33: skin. As AURELIO Quintanilla 22 directed Medical Branch insulin NPH 3-0 Yes inject Univ ers human 4-17 under the ity of isophane 13:33: skin. Abdi (HUMULIN N 22 Unsure of Medi dilshad PEN IN) what kind Branch of humulin insulin he takes SEMGLEE,INS 2023-0 Yes inject Univ ers ULIN 4-17 under the ity of GLARGINE-YF 13:33: skin. As AURELIO Quintanilla 22 directed Medical Branch insulin NPH 3-0 Yes inject Univ ers human 4-17 under the ity of isophane 13:33: skin. Abdi (HUMULIN N 22 Unsure of [facility]) what kind Branch of humulin insulin he takes SEMGLEE,INS 2023-0 Yes inject Univ ers ULIN 4-17 under the ity of GLARGINE-YF 13:33: skin. As AURELIO Quintanilla 22 directed Medical Branch insulin NPH 2022-0 Yes inject Univ ers human 4-17 under the ity of isophane 13:33: skin. Abdi (HUMULIN N 22 Unsure of [facility] dilshad PEN IN) what kind Branch of humulin insulin he takes SEMGLEE,INS 2023-0 Yes inject Univ ers ULIN 4-17 under the ity of GLARGINE-YF 13:33: skin. As AURELIO Quintanilla 22 directed Medical Branch insulin NPH 2022-0 Yes inject Univ ers human 4-17 under the ity of isophane 13:33: skin. Abdi (HUMULIN N 22 Unsure of [facility]) what kind Branch of humulin insulin he takes SEMGLEE,INS 2023-0 Yes inject Univ ers ULIN 4-17 under the ity of GLARGINE-YF 13:33: skin. As AURELIO Quintanilla 22 directed Medical Branch insulin NPH 2022-0 Yes inject Univ ers human 4-17 under the ity of isophane 13:33: skin. Abdi (HUMULIN N 22 Unsure of [facility]) what kind Branch of humulin insulin he takes SEMGLEE,INS 2023-0 Yes inject Univ ers ULIN 4-17 under the ity of GLARGINE-YF 13:33: skin. As AURELIO Quintanilla 22 directed Medical Branch insulin NPH 3-0 Yes inject Univ ers human 4-17 under the ity of isophane 13:33: skin. Abdi (HUMULIN N 22 Unsure of [facility] dilshad PEN IN) what kind Branch of humulin insulin he takes SEMGLEE,INS 2023-0 Yes inject Univ ers ULIN 4-17 under the ity of GLARGINE-YF 13:33: skin. As AURELIO Quintanilla 22 directed Medical Branch insulin NPH 3-0 Yes inject Univ ers human 4-17 under the ity of isophane 13:33: skin. Abdi (HUMULIN N 22 Unsure of [facility]) what kind Branch of humulin insulin he takes SEMGLEE,INS 2023-0 Yes inject Univ ers ULIN 4-17 under the ity of GLARGINE-YF 13:33: skin. As AURELIO Quintanilla 22 directed Medical Branch insulin NPH 2022-0 Yes inject Univ ers human 4-17 under the ity of isophane 13:33: skin. Abdi (HUMULIN N 22 Unsure of Medi dilshad PEN IN) what kind Branch of humulin insulin he takes SEMGLEE,INS 2023-0 Yes inject Univ ers ULIN 4-17 under the ity of GLARGINE-YF 13:33: skin. As AURELIO Quintanilla 22 directed Medical Branch insulin NPH 2022-0 Yes inject Univ ers human 4-17 under the ity of isophane 13:33: skin. Abdi (HUMULIN N 22 Unsure of [facility] dilshad PEN IN) what kind Branch of humulin insulin he takes SEMGLEE,INS 2023-0 Yes inject Univ ers ULIN 4-17 under the ity of GLARGINE-YF 13:33: skin. As AURELIO Quintanilla 22 directed Medical Branch insulin NPH 2022-0 Yes inject Univ ers human 4-17 under the ity of isophane 13:33: skin. Abdi (HUMULIN N 22 Unsure of [facility] dilshad PEN IN) what kind Branch of humulin insulin he takes SEMGLEE,INS 2023-0 Yes inject Univ ers ULIN 4-17 under the ity of GLARGINE-YF 13:33: skin. As AURELIO Quintanilla 22 directed Medical Branch insulin NPH 2022-0 Yes inject Univ ers human 4-17 under the ity of isophane 13:33: skin. Abdi (HUMULIN N 22 Unsure of Medi dilshad PEN IN) what kind Branch of humulin insulin he takes SEMGLEE,INS 2023-0 Yes inject Univ ers ULIN 4-17 under the ity of GLARGINE-YF 13:33: skin. As AURELIO Quintanilla 22 directed Medical Branch insulin NPH 3-0 Yes inject Univ ers human 4-17 under the ity of isophane 13:33: skin. Abdi (HUMULIN N 22 Unsure of [facility] dilshad PEN IN) what kind Branch of humulin insulin he takes SEMGLEE,INS 2023-0 Yes inject Univ ers ULIN 4-17 under the ity of GLARGINE-YF 13:33: skin. As AURELIO Quintanilla 22 directed Medical Branch insulin NPH 2022-0 Yes inject Univ ers human 4-17 under the ity of isophane 13:33: skin. Abdi (HUMULIN N 22 Unsure of Medi dilshad PEN IN) what kind Branch of humulin insulin he takes SEMGLEE,INS 2023-0 Yes inject Univ ers ULIN 4-17 under the ity of GLARGINE-YF 13:33: skin. As AURELIO Quintanilla 22 directed Medical Branch insulin NPH 2022-0 Yes inject Univ ers human 4-17 under the ity of isophane 13:33: skin. Abdi (HUMULIN N 22 Unsure of Medi dilshad PEN IN) what kind Branch of humulin insulin he takes SEMGLEE,INS 3-0 Yes inject Univ ers ULIN 4-17 under the ity of GLARGINE-YF 13:33: skin. As AURELIO Quintanilla 22 directed Medical Branch insulin NPH 2022-0 Yes inject Univ ers human 4-17 under the ity of isophane 13:33: skin. Abdi (HUMULIN N 22 Unsure of Medi dilshad PEN IN) what kind Branch of humulin insulin he takes SEMGLEE,INS 3-0 Yes inject Univ ers ULIN 4-17 under the ity of GLARGINE-YF 13:33: skin. As AURELIO Quintanilla 22 directed Medical Branch insulin NPH 2022-0 Yes inject Univ ers human 4-17 under the ity of isophane 13:33: skin. Abdi (HUMULIN N 22 Unsure of Medi dilshad PEN IN) what kind Branch of humulin insulin he takes SEMGLEE,INS 2023-0 Yes inject [facility] ULIN 4-17 under the ity of GLARGINE-YF 13:33: skin. As AURELIO Quintanilla 22 directed Medical Branch insulin NPH 2022-0 Yes inject [facility] human 4-17 under the ity of isophane 13:33: skin. Abdi (HUMULIN N 22 Unsure of Medi dilshad PEN IN) what kind Branch of humulin insulin he takes SEMGLEE,INS 2023-0 Yes inject [facility] ers ULIN 4-17 under the ity of GLARGINE-YF 13:33: skin. As Rolando crawley GN, [place] 22 directed Medical Branch insulin NPH 2023-0 Yes inject [facility] human 4-17 under the ity of isophane 13:33: skin. Abdi (HUMULIN N 22 Unsure of Medi dilshad PEN IN) what kind Branch of humulin insulin he takes insulin NPH 2023-0 Yes inject [facility] ers human 4-17 under the ity of isophane 13:33: skin. Abdi (HUMULIN N 22 Unsure of Medi dilshad PEN IN) what kind Branch of humulin insulin he takes insulin NPH 2023-0 Yes inject [facility] human 4-17 under the ity of isophane 13:33: skin. Abdi (HUMULIN N 22 Unsure of Medi dilshad PEN IN) what kind Branch of humulin insulin he takes insulin NPH 2023-0 Yes inject [facility] ers human 4-17 under the ity of isophane 13:33: skin. Abdi (HUMULIN N 22 Unsure of Medi dilshad PEN IN) what kind Branch of humulin insulin he takes insulin NPH 2023-0 Yes inject [facility] ers human 4-17 under the ity of isophane 13:33: skin. Abdi (HUMULIN N 22 Unsure of Medi dilshad PEN IN) what kind Branch of humulin insulin he takes insulin NPH 2023-0 Yes inject [facility] ers human 4-17 under the ity of isophane 13:33: skin. Abdi (HUMULIN N 22 Unsure of Medi dilshad PEN IN) what kind Branch of humulin insulin he takes insulin NPH 2023-0 Yes inject [facility] ers human 4-17 under the ity of isophane 13:33: skin. Abdi (HUMULIN N 22 Unsure of Medi dilshad PEN IN) what kind Branch of humulin insulin he takes insulin NPH 2023-0 Yes inject [facility] ers human 4-17 under the ity of isophane 13:33: skin. Abdi (HUMULIN N 22 Unsure of Medi dilshad PEN IN) what kind Branch of humulin insulin he takes cephALEXin 2023-0 Yes 500mg Take 1 [facility] ers 500 mg 4-17 capsule by ity of capsule 13:23: mouth 4 [place] 56 (four) Medical times Branch daily. cephALEXin 2023-0 Yes 500mg Take 1 [facility] ers 500 mg 4-17 capsule by ity of capsule 13:23: mouth 4 [place] 56 (four) Medical times Branch daily. cephALEXin 2023-0 Yes 500mg Take 1 [facility] ers 500 mg 4-17 capsule by ity of capsule 13:23: mouth 4 [place] 56 (four) Medical times Branch daily. cephALEXin 2023-0 Yes 500mg Take 1 [facility] ers 500 mg 4-17 capsule by ity of capsule 13:23: mouth 4 [place] 56 (four) Medical times Branch daily. cephALEXin 2023-0 Yes 500mg Take 1 [facility] ers 500 mg 4-17 capsule by ity of capsule 13:23: mouth 4 [place] 56 (four) Medical times Branch daily. cephALEXin 2023-0 Yes 500mg Take 1 [facility] ers 500 mg 4-17 capsule by ity of capsule 13:23: mouth 4 [place] 56 (four) Medical times Branch daily. cephALEXin 2023-0 Yes 500mg Take 1 [facility] ers 500 mg 4-17 capsule by ity of capsule 13:23: mouth 4 [place] [address] (four) Medical times Branch daily. cephALEXin 2023-0 Yes 500mg Take 1 [facility] ers 500 mg 4-17 capsule by ity of capsule 13:23: mouth 4 [place] [address] (four) Medical times Branch daily. cephALEXin 2023-0 Yes 500mg Take 1 [facility] ers 500 mg 4-17 capsule by ity of capsule 13:23: mouth 4 [place] [address] (four) Medical times Branch daily. cephALEXin 2023-0 Yes 500mg Take 1 [facility] ers 500 mg 4-17 capsule by ity of capsule 13:23: mouth 4 [place] [address] (four) Medical times Branch daily. cephALEXin 2023-0 Yes 500mg Take 1 [facility] ers 500 mg 4-17 capsule by ity of capsule 13:23: mouth 4 [place] [address] (four) Medical times Branch daily. cephALEXin 2023-0 Yes 500mg Take 1 [facility] ers 500 mg 4-17 capsule by ity of capsule 13:23: mouth 4 [place] 56 (four) Medical times Branch daily. cephALEXin 2023-0 Yes 500mg Take 1 [facility] ers 500 mg 4-17 capsule by ity of capsule 13:23: mouth 4 [place] 56 (four) Medical times Branch daily. cephALEXin 2023-0 Yes 500mg Take 1 [facility] ers 500 mg 4-17 capsule by ity of capsule 13:23: mouth 4 [place] [address] (four) Medical times Branch daily. cephALEXin 2023-0 Yes 500mg Take 1 [facility] ers 500 mg 4-17 capsule by ity of capsule 13:23: mouth 4 [place] [address] ([facility]) Medical times Branch daily. cephALEXin 2023-0 Yes 500mg Take 1 Univ ers 500 mg 4-17 capsule by ity of capsule 13:23: mouth 4 [place] [address] ([facility]) Medical times Branch daily. cephALEXin 2023-0 Yes 500mg Take 1 [facility] ers 500 mg 4-17 capsule by ity of capsule 13:23: mouth 4 [place] [address] ([facility]) Medical times Branch daily. cephALEXin 2023-0 Yes 500mg Take 1 [facility] ers 500 mg 4-17 capsule by ity of capsule 13:23: mouth 4 [place] [address] ([facility]) Medical times Branch daily. cephALEXin 2023-0 Yes 500mg Take 1 [facility] ers 500 mg 4-17 capsule by ity of capsule 13:23: mouth 4 [place] [address] ([facility]) Medical times Branch daily. cephALEXin 2023-0 Yes 500mg Take 1 [facility] ers 500 mg 4-17 capsule by ity of capsule 13:23: mouth 4 [place] [address] ([facility]) Medical times Branch daily. cephALEXin 2023-0 Yes 500mg Take 1 [facility] ers 500 mg 4-17 capsule by ity of capsule 13:23: mouth 4 [place] [address] ([facility]) Medical times Branch daily. cephALEXin 2023-0 Yes 500mg Take 1 Univ ers 500 mg 4-17 capsule by ity of capsule 13:23: mouth 4 [place] [address] ([facility]) Medical times Branch daily. cephALEXin 2023-0 Yes 500mg Take 1 Univ ers 500 mg 4-17 capsule by ity of capsule 13:23: mouth 4 [place] [address] ([facility]) Medical times Branch daily. gabapentin 2023-0 Yes [id number] 300mg Take 1 [facility] 300 mg 4-17 capsule by ity of capsule 00:00: mouth in [place] [address] the Medical morning Branch and 1 capsule at noon and 1 capsule in the evening. amiodarone 2023-0 Yes [id number] 200mg Take 1 [facility] 200 mg 4-17 tablet by ity of tablet 00:00: mouth in [place] [address] the Medical morning. Branch apixaban 5 2023-0 Yes 5mg Take 1 Unive rs mg tablet 4-17 tablet by ity o f 00:00: mouth in [place] [address] the Medical morning Branch and 1 tablet in the evening. Indication s: ATRIAL FIBRILLATI ON atorvastati 2023-0 Yes [id number] 40mg Take 1 [facility] n 40 mg 4-17 tablet by ity of tablet 00:00: mouth at [place] [address] bedtime. Medical Branch SERTraline Yes [id number] 100mg Take 1 [facility] 100 mg 4-17 tablet by ity of tablet 00:00: mouth in [place] the morning. Branch lisinopriL Yes [id number] 2.5mg Take 1 Univers 2.5 mg 4-17 tablet by ity of tablet 00:00: mouth in [place] the morning. Branch metoprolol Yes [id number] 25mg Take 1 U nivers tartrate 25 4-17 tablet by ity of mg tablet 00:00: mouth in [facility] the morning Branch and 1 tablet in the evening. blood sugar Yes [id number] Check U nivers diagnostic 4-17 blood ity of strip 00:00: sugar 2 [place] 00 times a Medical day. Branch E11.9. Brand per insurance. Uses ACCU-CHEK machine Lancets Yes [id number] Check Unive rs Misc 4-17 blood ity of 00:00: sugar 2 [place] times a Medical day. Branch E11.9. Brand per insurance. gabapentin Yes [id number] 300mg Take 1 [facility] 300 mg 4-17 capsule by ity of capsule 00:00: mouth in [place] the morning Branch and 1 capsule at noon and 1 capsule in the evening. amiodarone Yes [id number] 200mg Take 1 [facility] 200 mg 4-17 tablet by ity of tablet 00:00: mouth in [place] the morning. Branch apixaban 5 Yes 5mg Take 1 Unive rs mg tablet 4-17 tablet by ity o f 00:00: mouth in [place] the morning Branch and 1 tablet in the evening. Indication s: ATRIAL FIBRILLATI ON atorvastati Yes [id number] 40mg Take 1 [facility] n 40 mg 4-17 tablet by ity of tablet 00:00: mouth at [place] [address] bedtime. Medical Branch SERTraline Yes [id number] 100mg Take 1 [facility] 100 mg 4-17 tablet by ity of tablet 00:00: mouth in [place] 00 the morning. Branch lisinopriL Yes [id number] 2.5mg Take 1 Univers 2.5 mg 4-17 tablet by ity of tablet 00:00: mouth in [place] the morning. Branch metoprolol Yes [id number] 25mg Take 1 U nivers tartrate 25 4-17 tablet by ity of mg tablet 00:00: mouth in [facility] 00 the morning Branch and 1 tablet in the evening. blood sugar 0 Yes [id number] Check U nivers diagnostic 4-17 blood ity of strip 00:00: sugar 2 [place] times a Medical day. Branch E11.9. Brand per insurance. Uses ACCU-CHEK machine Lancets Yes [id number] Check Unive rs Misc 4-17 blood ity of 00:00: sugar 2 [place] times a Medical day. Branch E11.9. Brand per insurance. gabapentin Yes [id number] 300mg Take 1 Univers 300 mg 4-17 capsule by ity of capsule 00:00: mouth in [place] the morning Branch and 1 capsule at noon and 1 capsule in the evening. amiodarone Yes [id number] 200mg Take 1 Univers 200 mg 4-17 tablet by ity of tablet 00:00: mouth in [place] the morning. Branch apixaban 5 Yes 5mg Take 1 Unive rs mg tablet 4-17 tablet by ity o f 00:00: mouth in [place] the morning Branch and 1 tablet in the evening. Indication s: ATRIAL FIBRILLATI ON atorvastati 2022-0 Yes [id number] 40mg Take 1 Univers n 40 mg 4-17 tablet by ity of tablet 00:00: mouth at [place] [address] bedtime. Medical Branch SERTraline 0 Yes [id number] 100mg Take 1 Univers 100 mg 4-17 tablet by ity of tablet 00:00: mouth in [place] the morning. Branch lisinopriL 0 Yes [id number] 2.5mg Take 1 Univers 2.5 mg 4-17 tablet by ity of tablet 00:00: mouth in [place] [address] the morning. Branch metoprolol 2022-0 Yes [id number] 25mg Take 1 U nivers tartrate 25 4-17 tablet by ity of mg tablet 00:00: mouth in [facility] s the Medical morning Branch and 1 tablet in the evening. blood sugar 0 Yes [id number] Check U nivers diagnostic 4-17 blood ity of strip 00:00: sugar 2 [place] 00 times a Medical day. Branch E11.9. Brand per insurance. Uses ACCU-CHEK machine Lancets 0 Yes [id number] Check Unive rs Misc 4-17 blood ity of 00:00: sugar 2 [place] times a Medical day. Branch E11.9. Brand per insurance. gabapentin Yes [id number] 300mg Take 1 Univers 300 mg 4-17 capsule by ity of capsule 00:00: mouth in [place] the morning Branch and 1 capsule at noon and 1 capsule in the evening. amiodarone Yes [id number] 200mg Take 1 Univers 200 mg 4-17 tablet by ity of tablet 00:00: mouth in [place] the morning. Branch apixaban 5 Yes 5mg Take 1 Unive rs mg tablet 4-17 tablet by ity o f 00:00: mouth in [place] 00 the morning Branch and 1 tablet in the evening. Indication s: ATRIAL FIBRILLATI ON atorvastati Yes [id number] 40mg Take 1 Univers n 40 mg 4-17 tablet by ity of tablet 00:00: mouth at [place] [address] bedtime. Medical Branch SERTraline Yes [id number] 100mg Take 1 Univers 100 mg 4-17 tablet by ity of tablet 00:00: mouth in [place] the morning. Branch lisinopriL Yes [id number] 2.5mg Take 1 Univers 2.5 mg 4-17 tablet by ity of tablet 00:00: mouth in [place] 00 the Medical morning. Branch metoprolol 0 Yes [id number] 25mg Take 1 U nivers tartrate 25 4-17 tablet by ity of mg tablet 00:00: mouth in [facility] 00 the morning Branch and 1 tablet in the evening. blood sugar 2022-0 Yes [id number] Check U nivers diagnostic 4-17 blood ity of strip 00:00: sugar 2 [place] 00 times a Medical day. Branch E11.9. Brand per insurance. Uses ACCU-CHEK machine Lancets Yes [id number] Check Unive rs Misc 4-17 blood ity of 00:00: sugar 2 [place] 00 times a Medical day. Branch E11.9. Brand per insurance. gabapentin Yes [id number] 300mg Take 1 Univers 300 mg 4-17 capsule by ity of capsule 00:00: mouth in [place] 00 the Medical morning Branch and 1 capsule at noon and 1 capsule in the evening. amiodarone Yes [id number] 200mg Take 1 [facility] 200 mg 4-17 tablet by ity of tablet 00:00: mouth in [place] 00 the morning. Branch apixaban 5 Yes 5mg Take 1 Unive rs mg tablet 4-17 tablet by ity o f 00:00: mouth in [place] the morning Branch and 1 tablet in the evening. Indication s: ATRIAL FIBRILLATI ON atorvastati Yes [id number] 40mg Take 1 Univers n 40 mg 4-17 tablet by ity of tablet 00:00: mouth at [place] [address] bedtime. Medical Branch SERTraline Yes [id number] 100mg Take 1 [facility] 100 mg 4-17 tablet by ity of tablet 00:00: mouth in [place] the morning. Branch lisinopriL Yes [id number] 2.5mg Take 1 Univers 2.5 mg 4-17 tablet by ity of tablet 00:00: mouth in [place] the morning. Branch metoprolol Yes [id number] 25mg Take 1 U nivers tartrate 25 4-17 tablet by ity of mg tablet 00:00: mouth in [facility] the Medical morning Branch and 1 tablet in the evening. blood sugar 0 Yes [id number] Check U nivers diagnostic 4-17 blood ity of strip 00:00: sugar 2 [place] 00 times a Medical day. Branch E11.9. Brand per insurance. Uses ACCU-CHEK machine Lancets 0 Yes [id number] Check Unive rs Misc 4-17 blood ity of 00:00: sugar 2 [place] 00 times a Medical day. Branch E11.9. Brand per insurance. gabapentin Yes [id number] 300mg Take 1 Univers 300 mg 4-17 capsule by ity of capsule 00:00: mouth in [place] 00 the Medical morning Branch and 1 capsule at noon and 1 capsule in the evening. amiodarone Yes [id number] 200mg Take 1 Univers 200 mg 4-17 tablet by ity of tablet 00:00: mouth in [place] the morning. Branch apixaban 5 0 Yes 5mg Take 1 Unive rs mg tablet 4-17 tablet by ity o f 00:00: mouth in [place] the morning Branch and 1 tablet in the evening. Indication s: ATRIAL FIBRILLATI ON atorvastati Yes [id number] 40mg Take 1 Univers n 40 mg 4-17 tablet by ity of tablet 00:00: mouth at [place] [address] bedtime. Medical Branch SERTraline Yes [id number] 100mg Take 1 Univers 100 mg 4-17 tablet by ity of tablet 00:00: mouth in [place] the morning. Branch lisinopriL Yes [id number] 2.5mg Take 1 Univers 2.5 mg 4-17 tablet by ity of tablet 00:00: mouth in [place] the morning. Branch metoprolol Yes [id number] 25mg Take 1 U nivers tartrate 25 4-17 tablet by ity of mg tablet 00:00: mouth in [facility] the morning Branch and 1 tablet in the evening. blood sugar 0 Yes [id number] Check U nivers diagnostic 4-17 blood ity of strip 00:00: sugar 2 [place] 00 times a Medical day. Branch E11.9. Brand per insurance. Uses ACCU-CHEK machine Lancets Yes [id number] Check Unive rs Misc 4-17 blood ity of 00:00: sugar 2 [place] 00 times a Medical day. Branch E11.9. Brand per insurance. gabapentin 0 Yes [id number] 300mg Take 1 Univers 300 mg 4-17 capsule by ity of capsule 00:00: mouth in [place] the morning Branch and 1 capsule at noon and 1 capsule in the evening. amiodarone 0 Yes [id number] 200mg Take 1 Univers 200 mg 4-17 tablet by ity of tablet 00:00: mouth in [place] 00 the morning. Branch apixaban 5 0 Yes 5mg Take 1 Unive rs mg tablet 4-17 tablet by ity o f 00:00: mouth in [place] 00 the morning Branch and 1 tablet in the evening. Indication s: ATRIAL FIBRILLATI ON atorvastati Yes [id number] 40mg Take 1 Univers n 40 mg 4-17 tablet by ity of tablet 00:00: mouth at [place] [address] bedtime. Medical Branch SERTraline Yes [id number] 100mg Take 1 Univers 100 mg 4-17 tablet by ity of tablet 00:00: mouth in [place] 00 the morning. Branch lisinopriL Yes [id number] 2.5mg Take 1 Univers 2.5 mg 4-17 tablet by ity of tablet 00:00: mouth in [place] 00 the morning. Branch metoprolol Yes [id number] 25mg Take 1 U nivers tartrate 25 4-17 tablet by ity of mg tablet 00:00: mouth in [facility] 00 the morning Branch and 1 tablet in the evening. blood sugar Yes [id number] Check U nivers diagnostic 4-17 blood ity of strip 00:00: sugar 2 [place] 00 times a Medical day. Branch E11.9. Brand per insurance. Uses ACCU-CHEK machine Lancets Yes [id number] Check Unive rs Misc 4-17 blood ity of 00:00: sugar 2 [place] 00 times a Medical day. Branch E11.9. Brand per insurance. gabapentin Yes [id number] 300mg Take 1 Univers 300 mg 4-17 capsule by ity of capsule 00:00: mouth in [place] 00 the morning Branch and 1 capsule at noon and 1 capsule in the evening. amiodarone Yes [id number] 200mg Take 1 [facility] 200 mg 4-17 tablet by ity of tablet 00:00: mouth in [place] 00 the morning. Branch apixaban 5 0 Yes 5mg Take 1 Unive rs mg tablet 4-17 tablet by ity o f 00:00: mouth in [place] 00 the morning Branch and 1 tablet in the evening. Indication s: ATRIAL FIBRILLATI ON atorvastati Yes [id number] 40mg Take 1 Univers n 40 mg 4-17 tablet by ity of tablet 00:00: mouth at [place] [address] bedtime. Medical Branch SERTraline Yes [id number] 100mg Take 1 [facility] 100 mg 4-17 tablet by ity of tablet 00:00: mouth in [place] the morning. Branch lisinopriL Yes [id number] 2.5mg Take 1 Univers 2.5 mg 4-17 tablet by ity of tablet 00:00: mouth in [place] the morning. Branch metoprolol Yes [id number] 25mg Take 1 U nivers tartrate 25 4-17 tablet by ity of mg tablet 00:00: mouth in [facility] 00 the morning Branch and 1 tablet in the evening. blood sugar Yes [id number] Check U nivers diagnostic 4-17 blood ity of strip 00:00: sugar 2 [place] times a Medical day. Branch E11.9. Brand per insurance. Uses ACCU-CHEK machine Lancets Yes [id number] Check Unive rs Misc 4-17 blood ity of 00:00: sugar 2 [place] times a Medical day. Branch E11.9. Brand per insurance. gabapentin Yes [id number] 300mg Take 1 Univers 300 mg 4-17 capsule by ity of capsule 00:00: mouth in [place] the morning Branch and 1 capsule at noon and 1 capsule in the evening. amiodarone Yes [id number] 200mg Take 1 [facility] 200 mg 4-17 tablet by ity of tablet 00:00: mouth in [place] the morning. Branch apixaban 5 Yes 5mg Take 1 Unive rs mg tablet 4-17 tablet by ity o f 00:00: mouth in [place] the morning Branch and 1 tablet in the evening. Indication s: ATRIAL FIBRILLATI ON atorvastati Yes [id number] 40mg Take 1 Univers n 40 mg 4-17 tablet by ity of tablet 00:00: mouth at [place] [address] bedtime. Medical Branch SERTraline Yes [id number] 100mg Take 1 [facility] 100 mg 4-17 tablet by ity of tablet 00:00: mouth in [place] 00 the morning. Branch lisinopriL Yes [id number] 2.5mg Take 1 Univers 2.5 mg 4-17 tablet by ity of tablet 00:00: mouth in [place] the Medical morning. Branch metoprolol 0 Yes [id number] 25mg Take 1 U nivers tartrate 25 4-17 tablet by ity of mg tablet 00:00: mouth in [facility] the morning Branch and 1 tablet in the evening. blood sugar 2022-0 Yes [id number] Check U nivers diagnostic 4-17 blood ity of strip 00:00: sugar 2 [place] times a Medical day. Branch E11.9. Brand per insurance. Uses ACCU-CHEK machine Lancets 2022-0 Yes [id number] Check Unive rs Misc 4-17 blood ity of 00:00: sugar 2 [place] times a Medical day. Branch E11.9. Brand per insurance. gabapentin 2022-0 Yes [id number] 300mg Take 1 Univers 300 mg 4-17 capsule by ity of capsule 00:00: mouth in [place] the morning Branch and 1 capsule at noon and 1 capsule in the evening. amiodarone 0 Yes [id number] 200mg Take 1 [facility] 200 mg 4-17 tablet by ity of tablet 00:00: mouth in [place] the morning. Branch apixaban 5 0 Yes 5mg Take 1 Unive rs mg tablet 4-17 tablet by ity o f 00:00: mouth in [place] the morning Branch and 1 tablet in the evening. Indication s: ATRIAL FIBRILLATI ON atorvastati 2022-0 Yes [id number] 40mg Take 1 Univers n 40 mg 4-17 tablet by ity of tablet 00:00: mouth at [place] [address] bedtime. Medical Branch SERTraline 2022-0 Yes [id number] 100mg Take 1 [facility] 100 mg 4-17 tablet by ity of tablet 00:00: mouth in [place] the morning. Branch lisinopriL 2022-0 Yes [id number] 2.5mg Take 1 Univers 2.5 mg 4-17 tablet by ity of tablet 00:00: mouth in [place] the morning. Branch metoprolol 2022-0 Yes [id number] 25mg Take 1 U nivers tartrate 25 4-17 tablet by ity of mg tablet 00:00: mouth in [facility] the morning Branch and 1 tablet in the evening. blood sugar 2022-0 Yes [id number] Check U nivers diagnostic 4-17 blood ity of strip 00:00: sugar 2 [place] 00 times a Medical day. Branch E11.9. Brand per insurance. Uses ACCU-CHEK machine Lancets Yes [id number] Check Unive rs Misc 4-17 blood ity of 00:00: sugar 2 [place] 00 times a Medical day. Branch E11.9. Brand per insurance. gabapentin Yes [id number] 300mg Take 1 [facility] 300 mg 4-17 capsule by ity of capsule 00:00: mouth in [place] 00 the morning Branch and 1 capsule at noon and 1 capsule in the evening. amiodarone Yes [id number] 200mg Take 1 [facility] 200 mg 4-17 tablet by ity of tablet 00:00: mouth in [place] 00 the morning. Branch apixaban 5 Yes 5mg Take 1 Unive rs mg tablet 4-17 tablet by ity o f 00:00: mouth in [place] the morning Branch and 1 tablet in the evening. Indication s: ATRIAL FIBRILLATI ON atorvastati Yes [id number] 40mg Take 1 Univers n 40 mg 4-17 tablet by ity of tablet 00:00: mouth at [place] [address] bedtime. Medical Branch SERTraline Yes [id number] 100mg Take 1 [facility] 100 mg 4-17 tablet by ity of tablet 00:00: mouth in [place] 00 the morning. Branch lisinopriL Yes [id number] 2.5mg Take 1 Univers 2.5 mg 4-17 tablet by ity of tablet 00:00: mouth in [place] 00 the morning. Branch metoprolol Yes [id number] 25mg Take 1 U nivers tartrate 25 4-17 tablet by ity of mg tablet 00:00: mouth in [facility] 00 the morning Branch and 1 tablet in the evening. blood sugar Yes [id number] Check U nivers diagnostic 4-17 blood ity of strip 00:00: sugar 2 [place] 00 times a Medical day. Branch E11.9. Brand per insurance. Uses ACCU-CHEK machine Lancets 0 Yes [id number] Check Unive rs Misc 4-17 blood ity of 00:00: sugar 2 [place] 00 times a Medical day. Branch E11.9. Brand per insurance. gabapentin Yes [id number] 300mg Take 1 [facility] 300 mg 4-17 capsule by ity of capsule 00:00: mouth in [place] 00 the Medical morning Branch and 1 capsule at noon and 1 capsule in the evening. amiodarone 0 Yes [id number] 200mg Take 1 [facility] 200 mg 4-17 tablet by ity of tablet 00:00: mouth in [place] 00 the morning. Branch apixaban 5 0 Yes 5mg Take 1 Unive rs mg tablet 4-17 tablet by ity o f 00:00: mouth in [place] 00 the morning Branch and 1 tablet in the evening. Indication s: ATRIAL FIBRILLATI ON atorvastati Yes [id number] 40mg Take 1 [facility] n 40 mg 4-17 tablet by ity of tablet 00:00: mouth at [place] [address] bedtime. Medical Branch SERTraline Yes [id number] 100mg Take 1 [facility] 100 mg 4-17 tablet by ity of tablet 00:00: mouth in [place] the morning. Branch lisinopriL Yes [id number] 2.5mg Take 1 [facility] 2.5 mg 4-17 tablet by ity of tablet 00:00: mouth in [place] [address] the morning. Branch metoprolol Yes [id number] 25mg Take 1 U nivers tartrate 25 4-17 tablet by ity of mg tablet 00:00: mouth in [facility] 00 the morning Branch and 1 tablet in the evening. blood sugar 0 Yes [id number] Check U nivers diagnostic 4-17 blood ity of strip 00:00: sugar 2 [place] 00 times a Medical day. Branch E11.9. Brand per insurance. Uses ACCU-CHEK machine Lancets 0 Yes [id number] Check Unive rs Misc 4-17 blood ity of 00:00: sugar 2 [place] 00 times a Medical day. Branch E11.9. Brand per insurance. gabapentin 0 Yes [id number] 300mg Take 1 [facility] 300 mg 4-17 capsule by ity of capsule 00:00: mouth in [place] 00 the Medical morning Branch and 1 capsule at noon and 1 capsule in the evening. amiodarone 2022-0 Yes [id number] 200mg Take 1 [facility] 200 mg 4-17 tablet by ity of tablet 00:00: mouth in [place] the morning. Branch apixaban 5 Yes 5mg Take 1 Unive rs mg tablet 4-17 tablet by ity o f 00:00: mouth in [place] the morning Branch and 1 tablet in the evening. Indication s: ATRIAL FIBRILLATI ON atorvastati Yes [id number] 40mg Take 1 [facility] n 40 mg 4-17 tablet by ity of tablet 00:00: mouth at [place] [address] bedtime. Medical Branch SERTraline Yes [id number] 100mg Take 1 [facility] 100 mg 4-17 tablet by ity of tablet 00:00: mouth in [place] the morning. Branch lisinopriL Yes [id number] 2.5mg Take 1 [facility] 2.5 mg 4-17 tablet by ity of tablet 00:00: mouth in [place] the morning. Branch metoprolol Yes [id number] 25mg Take 1 U nivers tartrate 25 4-17 tablet by ity of mg tablet 00:00: mouth in [facility] the morning Branch and 1 tablet in the evening. blood sugar Yes [id number] Check U nivers diagnostic 4-17 blood ity of strip 00:00: sugar 2 [place] times a Medical day. Branch E11.9. Brand per insurance. Uses ACCU-CHEK machine Lancets Yes [id number] Check Unive rs Misc 4-17 blood ity of 00:00: sugar 2 [place] times a Medical day. Branch E11.9. Brand per insurance. gabapentin Yes [id number] 300mg Take 1 [facility] 300 mg 4-17 capsule by ity of capsule 00:00: mouth in [place] the morning Branch and 1 capsule at noon and 1 capsule in the evening. amiodarone Yes [id number] 200mg Take 1 [facility] 200 mg 4-17 tablet by ity of tablet 00:00: mouth in [place] 00 the morning. Branch apixaban 5 Yes 5mg Take 1 Unive rs mg tablet 4-17 tablet by ity o f 00:00: mouth in [place] the morning Branch and 1 tablet in the evening. Indication s: ATRIAL FIBRILLATI ON atorvastati Yes [id number] 40mg Take 1 [facility] n 40 mg 4-17 tablet by ity of tablet 00:00: mouth at [place] [address] bedtime. Medical Branch SERTraline Yes [id number] 100mg Take 1 [facility] 100 mg 4-17 tablet by ity of tablet 00:00: mouth in [place] the morning. Branch lisinopriL Yes [id number] 2.5mg Take 1 Univers 2.5 mg 4-17 tablet by ity of tablet 00:00: mouth in [place] the morning. Branch metoprolol Yes [id number] 25mg Take 1 U nivers tartrate 25 4-17 tablet by ity of mg tablet 00:00: mouth in [facility] the morning Branch and 1 tablet in the evening. blood sugar Yes [id number] Check U nivers diagnostic 4-17 blood ity of strip 00:00: sugar 2 [place] times a Medical day. Branch E11.9. Brand per insurance. Uses ACCU-CHEK machine Lancets Yes [id number] Check Unive rs Misc 4-17 blood ity of 00:00: sugar 2 [place] times a Medical day. Branch E11.9. Brand per insurance. gabapentin Yes [id number] 300mg Take 1 Univers 300 mg 4-17 capsule by ity of capsule 00:00: mouth in [place] the morning Branch and 1 capsule at noon and 1 capsule in the evening. amiodarone Yes [id number] 200mg Take 1 Univers 200 mg 4-17 tablet by ity of tablet 00:00: mouth in [place] the morning. Branch apixaban 5 Yes 5mg Take 1 Unive rs mg tablet 4-17 tablet by ity o f 00:00: mouth in [place] the morning Branch and 1 tablet in the evening. Indication s: ATRIAL FIBRILLATI ON atorvastati Yes [id number] 40mg Take 1 Univers n 40 mg 4-17 tablet by ity of tablet 00:00: mouth at [place] [address] bedtime. Medical Branch SERTraline Yes [id number] 100mg Take 1 [facility] 100 mg 4-17 tablet by ity of tablet 00:00: mouth in [place] 00 the morning. Branch lisinopriL Yes [id number] 2.5mg Take 1 Univers 2.5 mg 4-17 tablet by ity of tablet 00:00: mouth in [place] 00 the morning. Branch metoprolol Yes [id number] 25mg Take 1 U nivers tartrate 25 4-17 tablet by ity of mg tablet 00:00: mouth in [facility] 00 the morning Branch and 1 tablet in the evening. blood sugar 0 Yes [id number] Check U nivers diagnostic 4-17 blood ity of strip 00:00: sugar 2 [place] times a Medical day. Branch E11.9. Brand per insurance. Uses ACCU-CHEK machine Lancets Yes [id number] Check Unive rs Misc 4-17 blood ity of 00:00: sugar 2 [place] times a Medical day. Branch E11.9. Brand per insurance. gabapentin Yes [id number] 300mg Take 1 Univers 300 mg 4-17 capsule by ity of capsule 00:00: mouth in [place] the morning Branch and 1 capsule at noon and 1 capsule in the evening. amiodarone Yes [id number] 200mg Take 1 Univers 200 mg 4-17 tablet by ity of tablet 00:00: mouth in [place] the morning. Branch apixaban 5 Yes 5mg Take 1 Unive rs mg tablet 4-17 tablet by ity o f 00:00: mouth in [place] the morning Branch and 1 tablet in the evening. Indication s: ATRIAL FIBRILLATI ON atorvastati 2022-0 Yes [id number] 40mg Take 1 [facility] n 40 mg 4-17 tablet by ity of tablet 00:00: mouth at [place] [address] bedtime. Medical Branch SERTraline 0 Yes [id number] 100mg Take 1 [facility] 100 mg 4-17 tablet by ity of tablet 00:00: mouth in [place] 00 the morning. Branch lisinopriL Yes [id number] 2.5mg Take 1 Univers 2.5 mg 4-17 tablet by ity of tablet 00:00: mouth in [place] 00 the morning. Branch metoprolol 2022-0 Yes [id number] 25mg Take 1 U nivers tartrate 25 4-17 tablet by ity of mg tablet 00:00: mouth in [facility] s the Medical morning Branch and 1 tablet in the evening. blood sugar 0 Yes [id number] Check U nivers diagnostic 4-17 blood ity of strip 00:00: sugar 2 [place] 00 times a Medical day. Branch E11.9. Brand per insurance. Uses ACCU-CHEK machine Lancets 0 Yes [id number] Check Unive rs Misc 4-17 blood ity of 00:00: sugar 2 [place] 00 times a Medical day. Branch E11.9. Brand per insurance. gabapentin 0 Yes [id number] 300mg Take 1 Univers 300 mg 4-17 capsule by ity of capsule 00:00: mouth in [place] 00 the morning Branch and 1 capsule at noon and 1 capsule in the evening. amiodarone Yes [id number] 200mg Take 1 Univers 200 mg 4-17 tablet by ity of tablet 00:00: mouth in [place] 00 the Medical morning. Branch apixaban 5 Yes 5mg Take 1 Unive rs mg tablet 4-17 tablet by ity o f 00:00: mouth in [place] 00 the morning Branch and 1 tablet in the evening. Indication s: ATRIAL FIBRILLATI ON atorvastati Yes [id number] 40mg Take 1 Univers n 40 mg 4-17 tablet by ity of tablet 00:00: mouth at [place] [address] bedtime. Medical Branch SERTraline 0 Yes [id number] 100mg Take 1 [facility] 100 mg 4-17 tablet by ity of tablet 00:00: mouth in [place] 00 the Medical morning. Branch lisinopriL Yes [id number] 2.5mg Take 1 Univers 2.5 mg 4-17 tablet by ity of tablet 00:00: mouth in [place] 00 the Medical morning. Branch metoprolol 0 Yes [id number] 25mg Take 1 U nivers tartrate 25 4-17 tablet by ity of mg tablet 00:00: mouth in [facility] 00 the morning Branch and 1 tablet in the evening. blood sugar 2022-0 Yes [id number] Check U nivers diagnostic 4-17 blood ity of strip 00:00: sugar 2 [place] 00 times a Medical day. Branch E11.9. Brand per insurance. Uses ACCU-CHEK machine Lancets Yes [id number] Check Unive rs Misc 4-17 blood ity of 00:00: sugar 2 [place] 00 times a Medical day. Branch E11.9. Brand per insurance. gabapentin Yes [id number] 300mg Take 1 Univers 300 mg 4-17 capsule by ity of capsule 00:00: mouth in [place] 00 the Medical morning Branch and 1 capsule at noon and 1 capsule in the evening. amiodarone Yes [id number] 200mg Take 1 Univers 200 mg 4-17 tablet by ity of tablet 00:00: mouth in [place] 00 the morning. Branch apixaban 5 Yes 5mg Take 1 Unive rs mg tablet 4-17 tablet by ity o f 00:00: mouth in [place] 00 the morning Branch and 1 tablet in the evening. Indication s: ATRIAL FIBRILLATI ON atorvastati Yes [id number] 40mg Take 1 Univers n 40 mg 4-17 tablet by ity of tablet 00:00: mouth at [place] [address] bedtime. Medical Branch SERTraline Yes [id number] 100mg Take 1 Univers 100 mg 4-17 tablet by ity of tablet 00:00: mouth in [place] the morning. Branch lisinopriL Yes [id number] 2.5mg Take 1 Univers 2.5 mg 4-17 tablet by ity of tablet 00:00: mouth in [place] the morning. Branch metoprolol Yes [id number] 25mg Take 1 U nivers tartrate 25 4-17 tablet by ity of mg tablet 00:00: mouth in [facility] 00 the morning Branch and 1 tablet in the evening. blood sugar 0 Yes [id number] Check U nivers diagnostic 4-17 blood ity of strip 00:00: sugar 2 [place] 00 times a Medical day. Branch E11.9. Brand per insurance. Uses ACCU-CHEK machine Lancets 0 Yes [id number] Check Unive rs Misc 4-17 blood ity of 00:00: sugar 2 [place] 00 times a Medical day. Branch E11.9. Brand per insurance. gabapentin Yes [id number] 300mg Take 1 Univers 300 mg 4-17 capsule by ity of capsule 00:00: mouth in [place] 00 the Medical morning Branch and 1 capsule at noon and 1 capsule in the evening. amiodarone Yes [id number] 200mg Take 1 Univers 200 mg 4-17 tablet by ity of tablet 00:00: mouth in [place] 00 the morning. Branch apixaban 5 0 Yes 5mg Take 1 Unive rs mg tablet 4-17 tablet by ity o f 00:00: mouth in [place] the morning Branch and 1 tablet in the evening. Indication s: ATRIAL FIBRILLATI ON atorvastati Yes [id number] 40mg Take 1 Univers n 40 mg 4-17 tablet by ity of tablet 00:00: mouth at [place] [address] bedtime. Medical Branch SERTraline Yes [id number] 100mg Take 1 Univers 100 mg 4-17 tablet by ity of tablet 00:00: mouth in [place] the morning. Branch lisinopriL Yes [id number] 2.5mg Take 1 Univers 2.5 mg 4-17 tablet by ity of tablet 00:00: mouth in [place] the morning. Branch metoprolol Yes [id number] 25mg Take 1 U nivers tartrate 25 4-17 tablet by ity of mg tablet 00:00: mouth in [facility] the morning Branch and 1 tablet in the evening. blood sugar Yes [id number] Check U nivers diagnostic 4-17 blood ity of strip 00:00: sugar 2 [place] 00 times a Medical day. Branch E11.9. Brand per insurance. Uses ACCU-CHEK machine Lancets Yes [id number] Check Unive rs Misc 4-17 blood ity of 00:00: sugar 2 [place] 00 times a Medical day. Branch E11.9. Brand per insurance. gabapentin 0 Yes [id number] 300mg Take 1 Univers 300 mg 4-17 capsule by ity of capsule 00:00: mouth in [place] 00 the morning Branch and 1 capsule at noon and 1 capsule in the evening. amiodarone 2022-0 Yes [id number] 200mg Take 1 Univers 200 mg 4-17 tablet by ity of tablet 00:00: mouth in [place] 00 the morning. Branch apixaban 5 0 Yes 5mg Take 1 Unive rs mg tablet 4-17 tablet by ity o f 00:00: mouth in [place] 00 the Medical morning Branch and 1 tablet in the evening. Indication s: ATRIAL FIBRILLATI ON atorvastati Yes [id number] 40mg Take 1 Univers n 40 mg 4-17 tablet by ity of tablet 00:00: mouth at [place] [address] bedtime. Medical Branch SERTraline Yes [id number] 100mg Take 1 Univers 100 mg 4-17 tablet by ity of tablet 00:00: mouth in [place] 00 the morning. Branch lisinopriL Yes [id number] 2.5mg Take 1 Univers 2.5 mg 4-17 tablet by ity of tablet 00:00: mouth in [place] 00 the morning. Branch metoprolol Yes [id number] 25mg Take 1 U nivers tartrate 25 4-17 tablet by ity of mg tablet 00:00: mouth in [facility] 00 the morning Branch and 1 tablet in the evening. blood sugar Yes [id number] Check U nivers diagnostic 4-17 blood ity of strip 00:00: sugar 2 [place] 00 times a Medical day. Branch E11.9. Brand per insurance. Uses ACCU-CHEK machine Lancets Yes [id number] Check Unive rs Misc 4-17 blood ity of 00:00: sugar 2 [place] 00 times a Medical day. Branch E11.9. Brand per insurance. gabapentin Yes [id number] 300mg Take 1 Univers 300 mg 4-17 capsule by ity of capsule 00:00: mouth in [place] 00 the morning Branch and 1 capsule at noon and 1 capsule in the evening. amiodarone Yes [id number] 200mg Take 1 Univers 200 mg 4-17 tablet by ity of tablet 00:00: mouth in [place] 00 the morning. Branch apixaban 5 0 Yes 5mg Take 1 Unive rs mg tablet 4-17 tablet by ity o f 00:00: mouth in [place] 00 the Medical morning Branch and 1 tablet in the evening. Indication s: ATRIAL FIBRILLATI ON atorvastati Yes [id number] 40mg Take 1 Univers n 40 mg 4-17 tablet by ity of tablet 00:00: mouth at [place] [address] bedtime. Medical Branch SERTraline 0 Yes [id number] 100mg Take 1 Univers 100 mg 4-17 tablet by ity of tablet 00:00: mouth in [place] 00 the Medical morning. Branch lisinopriL 2022-0 Yes [id number] 2.5mg Take 1 Univers 2.5 mg 4-17 tablet by ity of tablet 00:00: mouth in [place] 00 the Medical morning. Branch metoprolol 2022-0 Yes [id number] 25mg Take 1 U nivers tartrate 25 4-17 tablet by ity of mg tablet 00:00: mouth in [facility] 00 the Medical morning Branch and 1 tablet in the evening. blood sugar 0 Yes [id number] Check U nivers diagnostic 4-17 blood ity of strip 00:00: sugar 2 [place] 00 times a Medical day. Branch E11.9. Brand per insurance. Uses ACCU-CHEK machine Lancets Yes [id number] Check Unive rs Misc 4-17 blood ity of 00:00: sugar 2 [place] 00 times a Medical day. Branch E11.9. Brand per insurance. SERTraline 2022-0 Yes [id number] 100mg Take 1 Univers 100 mg 4-17 tablet by ity of tablet 00:00: mouth in [place] 00 the Medical morning. Branch SERTraline 2022-0 2022- No [id number] 100mg Take 1 Univers 100 mg 4-17 05-19 tablet by ity of tablet 00:00: 00:00 mouth in [place] 00 :00 the Medical morning. Branch gabapentin 2022-0 2022- No [id number] 300mg Take 1 Univers 300 mg 4-17 05-18 capsule by ity of capsule 00:00: 00:00 mouth in [place] 00 :00 the Medical morning Branch and 1 capsule at noon and 1 capsule in the evening. amiodarone 2022-0 2022- No [id number] 200mg Take 1 Univers 200 mg 4-17 05-18 tablet by ity of tablet 00:00: 00:00 mouth in [place] 00 :00 the Medical morning. Branch apixaban 5 2022-0 3- No 5mg Take 1 Univ ers mg tablet 4-17 05-18 tablet by ity of 00:00: 00:00 mouth in [place] 00 :00 the Medical morning Branch and 1 tablet in the evening. Indication s: ATRIAL FIBRILLATI ON atorvastati 2022- No [id number] 40mg Take 1 Univers n 40 mg 08-05-18 tablet by ity of tablet 00:00: 00:00 mouth at [place] 00 :00 bedtime. Medical Branch lisinopriL 2022- No [id number] 2.5mg Take 1 Univers 2.5 mg 08-05-18 tablet by ity of tablet 00:00: 00:00 mouth in [place] 00 :00 the Medical morning. Branch metoprolol 2022- No [id number] 25mg Take 1 Univers tartrate 25 08-05-18 tablet by it y of mg tablet 00:00: 00:00 mouth in [place] 00 :00 the Medical morning Branch and 1 tablet in the evening. blood sugar 2022- No [id number] Check Univers diagnostic 08-05-18 blood ity of strip 00:00: 00:00 sugar 2 [place] 00 :00 times a Medical day. Branch E11.9. Brand per insurance. Uses ACCU-CHEK machine Lancets 2022- No [id number] Check Univ ers Misc -04 09-18 blood ity of 00:00: 00:00 sugar 2 [place] 00 :00 times a Medical day. Branch E11.9. Brand per insurance. blood sugar 2022- No [id number] Check Univers diagnostic 4-17 -17 blood ity of strip 00:00: 00:00 sugar 2 [place] 00 :00 times a Medical day. Branch E11.9. Brand per insurance. Uses ACCU-CHEK machine blood sugar 2022- No [id number] Check Univers diagnostic 4-17 -17 blood ity of strip 00:00: 00:00 sugar 2 [place] 00 :00 times a Medical day. Branch E11.9. Brand per insurance. Uses ACCU-CHEK machine blood sugar 2022- No [id number] Check Univers diagnostic 4-17 -17 blood ity of strip 00:00: 00:00 sugar 2 [place] 00 :00 times a Medical day. Branch E11.9. Brand per insurance. Uses ACCU-CHEK machine amiodarone Yes 200mg Take 1 Univ ers 200 mg 4-12 tablet by ity of tablet 00:00: mouth in [place] 00 the Medical morning. Branch SERTraline 2023-0 Yes 25mg Take 1 Unive rs 25 mg 4-12 tablet by ity of tablet 00:00: mouth in [place] 00 the Medical morning. Branch amiodarone 2023-0 Yes 200mg Take 1 Univ ers 200 mg 4-12 tablet by ity of tablet 00:00: mouth in [place] 00 the Medical morning. Branch SERTraline 2023-0 Yes 25mg Take 1 Unive rs 25 mg 4-12 tablet by ity of tablet 00:00: mouth in [place] 00 the Medical morning. Branch amiodarone 2023-0 Yes 200mg Take 1 Univ ers 200 mg 4-12 tablet by ity of tablet 00:00: mouth in [place] 00 the Medical morning. Branch SERTraline 2023-0 Yes 25mg Take 1 Unive rs 25 mg 4-12 tablet by ity of tablet 00:00: mouth in [place] 00 the Medical morning. Branch amiodarone 2023-0 2023- No 200mg Take 1 Uni vers 200 mg 4-12 04-17 tablet by ity of tablet 00:00: 00:00 mouth in [place] 00 :00 the Medical morning. Branch SERTraline 2023-0 2023- No 100mg Take 1 Uni vers 100 mg 4-12 04-17 tablet by ity of tablet 00:00: 00:00 mouth in [place] 00 :00 the Medical morning. Branch amiodarone 2023-0 2023- No 200mg Take 1 Uni vers 200 mg 4-12 04-17 tablet by ity of tablet 00:00: 00:00 mouth in [place] 00 :00 the Medical morning. Branch SERTraline 2023-0 2023- No 100mg Take 1 Uni vers 100 mg 4-12 04-17 tablet by ity of tablet 00:00: 00:00 mouth in [place] 00 :00 the Medical morning. Branch amiodarone 2023-0 2023- No 200mg Take 1 Uni vers 200 mg 4-12 04-17 tablet by ity of tablet 00:00: 00:00 mouth in [place] 00 :00 the Medical morning. Branch SERTraline 2023-0 2023- No 100mg Take 1 Uni vers 100 mg 4-12 04-17 tablet by ity of tablet 00:00: 00:00 mouth in [place] 00 :00 the Medical morning. Branch sodium 2023-0 Yes Topical, Univers hypochlorit 4-11 BID, First it y of e 0.025% 01:00: dose on [place] ([facility]) Fri Medical solution 07/29/22 at [facility] h 2000, Until Discontinu ed, Routine iron 2022- No 500mg 500 mg, IV Unive rs sucrose 07-29 Infusion, ity of (VENOFER) 19:15: 23:11 ONCE, [place] 500 mg in 00 :00 Administer Medi dilshad NaCl 0.9% over 2.5 Branch (NS) 250 mL Hours, On infusion 07/29/22 at 1415, For 1 dose iopamidol 2022- No [id number] 80mL 80 mL, Univers (ISOVUE 07-29 Intravenou ity o f 370-500 mL) 16:26: 16:26 s, ONCE, 1 [place] injection 00 :00 dose, On Medica l 80 mL Mon Branch 07/29/22 at 1145, Routine lidocaine 2022- No 20mL 20 mL, Unive rs 1% 07-29 Infiltrati ity of (XYLOCAINE) 16:00: 15:27 on, ONCE, [place] 10 mg/mL (1 00 :00 1 dose, On Me dical %) [facility] Branch injection 07/29/22 at 20 mL 1100, STAT lactated 2022- No 1000mL at 100 Univ ers ringers IV 07-29 04-10 mL/hr, ity of infusion 15:30: 15:36 1,000 mL, [place] 1,000 mL 00 :20 Intravenou Medic al s, ONCE, 1 Branch dose, On [facility] 07/29/22 at 1030, Routine acetaminoph Yes 650mg 650 mg, Un anil en 4-10 Oral, ity of (TYLENOL) 01:52: Q6HPRN, [place]di tablet 650 10 Starting Medic al mg on Sun Branch 07/28/22 at 2051, Until Discontinu ed, Routine, Pain (scale 1-3), Temp > 38 C sodium 2022- No 50meq 50 mEq, Univer s bicarbonate 07-28 04-09 Slow IV ity of 1 mEq/mL 20:00: 19:38 Push, [place] (8.4 %) 00 :00 ONCE, 1 Medical injection dose, On Branch 50 mEq 07/28/22 at 1500, Routine amiodarone Yes 200mg 200 mg, Uni vers (PACERONE) 07-28 Oral, ity of tablet 200 14:00: DAILY, [place] mg 00 First dose Medical on [place] Branch 07/28/22 at 0900, Until Discontinu ed, Routine SERTraline Yes 25mg 25 mg, Unive rs (ZOLOFT) 07-28 Oral, ity of tablet 25 14:00: DAILY, [place] mg 00 First dose Medical on [place] Branch 07/28/22 at 0900, Until Discontinu ed, Routine Sliding Yes Subcutaneo Univ ers Scale 07-28 us, TID ity of Insulin - 13:00: MEALS+HS, [place] Lispro 00 First dose Medical (HumaLOG) + on [place] Branch Fsbg 07/28/22 at Testing 0800, Until Discontinu ed, Routine levETIRAcet No 500mg 500 mg, U nivers am (KEPPRA) 07-28 Oral, BID, i ty of tablet 500 13:00: 12:48 First dose [place] mg 00 :43 on [facility] 07/28/22 at Branch 0800, Until Discontinu ed, [...] First dose (after last modificati on) on 07/28/22 at 0600, Last dose on 08/03/22 [...] :00 ONCE, 1 Medical dose, On Branch [place] 07/28/22 at 0530, Routine NaCl 0.9% 2022- No 500mL at 999 [facility] ers (NS) bolus 07-28 mL/hr, 500 it y of infusion 09:54: 11:57 mL, IV [place] 500 mL 00 :00 Piggyback, Medical ONCE, 1 Branch dose, On [place] 07/28/22 at 0500, STAT lactated 2022- No 1000mL at 999 Univ ers ringers IV 07-28 mL/hr, ity of infusion 08:30: 09:06 1,000 mL, [place] 1,000 mL 00 :00 Intravenou Medic al s, ONCE, 1 Branch dose, On [place] 07/28/22 at 0330, Routine HEPARIN 2022- No 4000U 4,000 Univers SODIUM 07-28 Units, IV ity of (PORCINE) 07:45: 08:24 Push, [place] 1,000 00 :00 ONCE, 1 Medical UNIT/ML dose, On Branch BOLUS ACS [place] 07/28/22 ORDER SET at 0245, GELA dextrose 0 Yes 250mL 250 mL, IV Un anil 10% (D10W) 07-28 Infusion, ity of bolus 07:32: PRN - SEE [place] infusion 32 INSTRUCTIO Medic al 250 mL NS, Branch Administer over 60 Minutes, Other, If blood glucose is < or = 70 mg/dL and patient is unable to swallow or has mental status changes, Starting on [place] 07/28/22 at 0232
If blood glucose is [...] glucose is < 80 mg/dL, repeat.
glucagon 2023-0 Yes 1mg 1 mg, Univers (GLUCAGEN 07-28 [...] Rang e, Dosing and Testing: &nbs p;FOR [facility], [facility], AND [facility] ONLY &nbs p; - aPTT < [...] Starting [place] mL vial) 11 :03 on [facility] for 07/28/22 at Branch Rebolusing 0230, Until 07/29/22 at 0943, Routine
Dosing based on aPPT testing parameters (refer to continuous heparin drip order).
ceFEPIme 2022- No 1000mg 1,000 mg, U nivers (MAXIPIME) 07-28 IV ity of 1,000 mg in 07:30: 09:39 Piggyback, [place] NaCl 0.9% 00 :00 ONCE, 1 Medical [...] 250 mL 00 Q24H ABX, Med ical VIAL-technology coordinator dose Bran ch IV on Fri piggyback [...] of Therapy: Other (see Comments) cephALEXin Yes [id number] 500mg Take 1 Univers (KEFLEX) 07-19 capsule by ity o f 500 mg 00:00: mouth 4 [place] capsule 00 (four) Medical times Branch daily. cephALEXin 2022- No [id number] 500mg Take 1 Univers (KEFLEX) 07-19-11 capsule [...] s: acute pain sulfamethox 2022-0 2023- Yes [id number] 2{tbl} Take 2 Univers azole-trime 3-31 04-08 tablets by i ty of thoprim 00:00: 04:59 mouth [place] 800-160 mg 00 :00 every 12 Medic al per tablet (twelve) Branc h hours for 7 days. famotidine 0 Yes 20mg Q.5D Take 1 Metho di (PEPCID) 20 3-15 tablet (20 st MG tablet 15:57: mg total) Hos [facility] 16 by mouth 2 l (two) times a day. docusate 0 Yes 100mg Q.5D Take 1 Method i sodium 3-[address] (COLACE) 15:57: (100 mg Hospit a 100 MG 16 total) by l capsule mouth 2 (two) times a day. lisinopriL 0 Yes 2.5mg QD Take 1 Meth greer (PRINIVIL) 3-[address] 2.5 mg 15:57: (2.5 mg Hospita tablet 16 total) by l mouth daily. metoprolol 0 Yes 25mg Q12H Take 1 Metho di tartrate 3-15 tablet (25 st (LOPRESSOR) 15:57: mg total) H ospita 25 mg 16 by mouth l tablet every 12 (twelve) hours. polyethylen Yes 17g QD Take 17 g M ethodi e glycol 3-[address] (MIRALAX) 15:57: daily. MIX Ho spita 17 gram 16 WITH 6 OZ l packet OF JUICE OR WATER HYDROcodone 0 Yes [id number] 1{tbl} Q6H Take 1 M ethodi -acetaminop 3-[address] hen (NORCO) 15:57: mouth Hospi ta 10-325 mg 16 every 6 l per tablet (six) hours as needed for moderate pain .acute pain. sennosides- 0 Yes 1{tbl} Q24H Take 1 Me thodi [...] OF JUICE OR WATER HYDROcodone 2022-0 Yes [id number] 1{tbl} Q6H Take 1 M ethodi -acetaminop [...] OF JUICE OR WATER HYDROcodone 2022-0 Yes [id number] 1{tbl} Q6H Take 1 M ethodi -acetaminop [...] 16 total) by l mouth daily. metoprolol 3-0 Yes 25mg Q12H Take 1 Metho di [...] OF JUICE OR WATER HYDROcodone 2022-0 Yes [id number] 1{tbl} Q6H Take 1 M ethodi -acetaminop [...] OF JUICE OR WATER HYDROcodone 2022-0 Yes [id number] 1{tbl} Q6H Take 1 M ethodi -acetaminop [...] 16 total) by l mouth daily. metoprolol 0 Yes 25mg Q12H Take 1 Metho di tartrate 3-15 tablet (25 st (LOPRESSOR) 15:57: mg total) H ospita 25 mg 16 by mouth l tablet every 12 (twelve) hours. polyethylen 0 Yes 17g QD Take 17 g M ethodi e glycol 3-[address] (MIRALAX) 15:57: daily. MIX Ho spita 17 gram 16 WITH 6 OZ l packet OF JUICE OR WATER HYDROcodone 2022-0 Yes [id number] 1{tbl} Q6H Take 1 M ethodi -acetaminop [...] SLIDING l subcutaneou SCALE s pen acetaminoph 0 Yes 650mg Q6H Take 2 Met hodi [...] hours or as directed by physician. vancomycin 2022-0 2022- No 1000mg Q12H Infuse Me thodi 1,000 mg in 07-03 03-22 1,[address] sodium 00:00: 04:59 into a Hospita chloride 00 :00 venous l 0.9% 250 mL catheter IVPB every 12 (twelve) hours for 6 days. meropenem 1 2022-0 2023- No 1g Q12H Infuse 1 g Methodi g in sodium 07-[address] chloride 00:00: 04:59 venous Hospit a 0.9% 100 mL 00 :00 catheter l IVPB every 12 (twelve) hours for 6 days. vancomycin 3-0 2023- No 1000mg Q12H Infuse Me thodi 1,000 mg in 07-03 1,[address] sodium 00:00: 04:59 into a Hospita chloride 00 :00 venous l 0.9% 250 mL catheter IVPB every 12 (twelve) hours for 6 days. meropenem 1 2022-0 2023- No 1g Q12H Infuse 1 g Methodi g in sodium 07-[address] chloride 00:00: 04:59 venous Hospit a 0.9% 100 mL 00 :00 catheter l IVPB every 12 (twelve) hours for 6 days. vancomycin 2022-0 2023- No 1000mg Q12H Infuse Me thodi 1,000 mg in 07-03 1,[address] sodium 00:00: 04:59 into a Hospita chloride 00 :00 venous l 0.9% 250 mL catheter IVPB every 12 (twelve) hours for 6 days. meropenem 1 2022-0 2023- No 1g Q12H Infuse 1 g Methodi g in sodium 07-[address] chloride 00:00: 04:59 venous Hospit a 0.9% 100 mL 00 :00 catheter l IVPB every 12 (twelve) hours for 6 days. vancomycin 3-0 2023- No 1000mg Q12H Infuse Me thodi 1,000 mg in 07-03 1,[address] sodium 00:00: 04:59 into a Hospita chloride 00 :00 venous l 0.9% 250 mL catheter IVPB every 12 (twelve) hours for 6 days. meropenem 1 2022-0 2023- No 1g Q12H Infuse 1 g Methodi [...] hours for 6 days. meropenem 1 2022-0 3- No 1g Q12H Infuse 1 g Methodi g in sodium 07-[address] chloride 00:00: 04:59 venous Hospit a 0.9% 100 mL 00 :00 catheter l IVPB every 12 (twelve) hours for 6 days. vancomycin 2022-2022- No 1000mg Q12H Infuse Me thodi 1,000 mg in 07-03 1,[address] sodium 00:00: 04:59 into a Hospita chloride 00 :00 venous l 0.9% 250 mL catheter IVPB every 12 (twelve) hours for 6 days. meropenem 1 2022-2022- No 1g Q12H Infuse 1 g Methodi g in sodium 07-[address] chloride 00:00: 04:59 venous Hospit a 0.9% 100 mL 00 :00 catheter l IVPB every 12 (twelve) hours for 6 days. levoFLOXaci 2022-2022- No [id number] 500mg QD Take 1 Methodi n 06-[id number] (Levaquin) 00:00: 00:00 (500 mg Hos [facility] 500 MG 00 :00 total) by l tablet mouth daily. levoFLOXaci 2022-2022- No [id number] 500mg QD Take 1 Methodi n 06-[id number] (Levaquin) 00:00: 00:00 (500 mg [facility] jose 500 MG 00 :00 total) by l tablet mouth daily. levoFLOXaci 2022-2022- No [id number] 500mg QD Take 1 [id number] (Levaquin) 00:00: 00:00 (500 mg [facility] 500 MG 00 :00 total) by l tablet mouth daily. levoFLOXaci 2022- No [id number] 500mg QD Take 1 [facility] 06[id number] (Levaquin) 00:00: 00:00 (500 mg [facility] 500 MG 00 :00 total) by l tablet mouth daily. levoFLOXaci 3-0 3- No [id number] 500mg QD Take 1 [facility] 06[id number] (Levaquin) 00:00: 00:00 (500 mg [facility] 500 MG 00 :00 total) by l tablet mouth daily. levoFLOXaci 3-0 3- No [id number] 500mg QD Take 1 [id number] (Levaquin) 00:00: 00:00 (500 mg [...] 1 [facility] mg tablet 2-19 tablet ( 00:00: mg total) Hospita 00 by mouth 2 l (two) times a day. FOR PAD Eliquis 5 2023-0 Yes 5mg Q.5D Take 1 [facility] mg tablet 2-19 tablet ( 00:00: mg total) Hospita 00 by mouth 2 l (two) times a day. FOR PAD Eliquis 5 2023-0 Yes 5mg Q.5D Take 1 [facility] mg tablet 2-19 tablet ( 00:00: mg total) Hospita 00 by mouth 2 l (two) times a day. FOR PAD Eliquis 5 2023-0 Yes 5mg Q.5D Take 1 [facility] mg tablet 2-19 tablet ( 00:00: mg total) Hospita 00 by mouth 2 l (two) times a day. FOR PAD Eliquis 5 2023-0 Yes 5mg Q.5D Take 1 [facility] mg tablet 2-19 tablet ( 00:00: mg total) Hospita 00 by mouth 2 l (two) times a day. FOR PAD Eliquis 5 2023-0 Yes 5mg Q.5D Take 1 [facility] mg tablet 2-19 tablet ( 00:00: mg total) Hospita 00 by mouth [...] total) by l mouth daily. cephalexin 2023-0 2022- No [facility] i (KEFLEX) 06-0515 st 500 MG 00:00: 00:00 Hospita capsule 00 :00 l cephalexin 2023-0 2022- No [facility] i (KEFLEX) 06-0515 st 500 MG 00:00: 00:00 Hospita capsule 00 :00 l cephalexin 2023-0 3- No [facility] i (KEFLEX) 06-05 st 500 MG 00:00: 00:00 Hospita capsule 00 :00 l cephalexin 2023-0 2022- No [facility] i (KEFLEX) 2-15 03-15 st 500 MG 00:00: 00:00 Hospita capsule 00 :00 l cephalexin 3-0 2023- No [facility] i (KEFLEX) 06-05-15 st 500 MG 00:00: 00:00 Hospita capsule 00 :00 l cephalexin 2023-0 2023- No [facility] i (KEFLEX) 06-05-15 st 500 MG 00:00: 00:00 Hospita capsule 00 :00 l benzonatate 3-0 Yes Take by [facility] (TESSALON) 1-[address] 100 MG 00:00: Hospita capsule 00 l benzonatate 3-0 Yes Take by [facility] (TESSALON) 1-[address] 100 MG 00:00: Hospita capsule 00 l benzonatate 3-0 Yes Take by [facility] (TESSALON) 1-[address] 100 MG 00:00: Hospita capsule 00 l benzonatate 3-0 Yes Take by [facility] (TESSALON) 1-[address] 100 MG 00:00: Hospita capsule 00 l benzonatate 3-0 Yes Take by [facility] (TESSALON) 1-[address] 100 MG 00:00: Hospita capsule 00 l benzonatate 3-0 Yes Take by [facility] (TESSALON) 1-[address] 100 MG 00:00: Hospita capsule 00 l sennosides- 2023-0 2023- No 2{tbl} Take 2 M ethodi docusate -12 07-[address] sodium 00:00: 00:00 mouth. Hospita (SENOKOT-S) 00 :00 l 8.6-50 mg per tablet sennosides- 3-0 2023- No 2{tbl} Take 2 M ethodi docusate -24 03-[address] sodium 00:00: 00:00 mouth. Hospita (SENOKOT-S) 00 :00 l 8.6-50 mg per tablet sennosides- 2023-0 2023- No 2{tbl} Take 2 M ethodi docusate 24 03-[address] sodium 00:00: 00:00 [...] :00 l 8.6-50 mg per tablet sennosides- 0 2022- No 2{tbl} Take 2 M ethodi [...] 25mg Q.5D Take 1 Meth greer tartrate 1-24 02-24 tablet (25 st (LOPRESSOR) 00:00: 05:59 mg [...] on for up to 30 days. sertraline 0 2022- No 50mg QD Take 1 Meth [...] l mouth daily for 30 days. insulin 2022-2022- No 14U QD Inject Methodi detemir 05-14 [...] F) for up to 30 days. benzonatate 2022-2022- No 100mg Q6H Take 1 [facility] (TESSALON) 05-[address] 100 MG 00:00: 05:59 (100 mg Hospita capsule 00 :00 total) by l mouth every 6 (six) hours as needed for cough for up to 30 days. docusate 2022-0 2022- No 100mg Q.5D Take 1 Metho di sodium 05-[address] (COLACE) 00:00: 05:59 (100 mg Hospi ta 100 MG 00 :00 total) by l capsule mouth 2 (two) times a day for 30 days. famotidine 2022-0 2022- No 20mg Q.5D Take 1 Meth [...] 650mg Q6H Take 2 [facility] en 05-14-[address] (TYLENOL) 00:00: 05:59 (650 mg [...] Q.5D Take 1 Meth greer (PEPCID) 20 05-14-24 tablet (20 s t MG tablet 00:00: [...] No 2{tbl} Q24H Take 2 [facility] (SENOKOT) 05-14-[address] 8.6 mg 00:00: 05:59 [...] hours for 10 days. [place]DROcodone 2022- [place] [id number] 1{tbl} Q6H Take 1 [facility] -acetaminop 05-[address] hen (NORCO) 00:00: 05:59 mouth [facility] 10-325 mg 00 :00 every 6 l per tablet (six) hours as needed for moderate pain or severe pain for up to 7 days .acute pain. Max Daily Amount: 4 tablets cefTRIAXone 2023-0 2023- No 2g Q12H Infuse 2 g [facility] (ROCEPHIN) 05-14-[address] 2 g in 100 00:00: 05:59 venous [facility] ML Mini-Bag 00 :00 catheter l Plus every 12 (twelve) hours for 10 days. HYDROcodone 2023-0 2023- No [id number] 1{tbl} Q6H Take 1 [facility] -acetaminop 05-14- tablet by st [facility] ([employer]) 00:00: 05:59 mouth [facility] 10-325 mg 00 :00 every 6 l per tablet (six) hours as needed for moderate pain or severe pain for up to 7 days .acute pain. Max Daily Amount: 4 tablets cefTRIAXone 2023-0 2023- No 2g Q12H Infuse 2 g [facility] (ROCEPHIN) 05-14-[address] 2 g in 100 00:00: 05:59 venous [facility] ML Mini-Bag 00 :00 catheter l Plus every 12 (twelve) hours for 10 days. HYDROcodone 2023-0 2023- No [id number] 1{tbl} Q6H Take 1 [facility] -acetaminop 05-14- tablet by [facility] ([employer]) 00:00: 05:59 mouth [facility] 10-325 mg 00 :00 every 6 l per tablet (six) hours as needed for moderate pain or severe pain for up to 7 days .acute pain. Max Daily Amount: 4 tablets cefTRIAXone 2023-0 2023- No 2g Q12H Infuse 2 g [facility] (ROCEPHIN) 05-14-[address] 2 g in 100 00:00: 05:59 venous [facility] ML Mini-Bag 00 :00 catheter l Plus every 12 (twelve) hours for 10 days. HYDROcodone 2023-0 2023- No [id number] 1{tbl} Q6H Take 1 [facility] -acetaminop 05-14-[address] [facility] ([employer]) 00:00: 05:59 mouth [facility] 10-325 mg 00 :00 every 6 l per tablet (six) hours as needed for moderate pain or severe pain for up to 7 days .acute pain. Max Daily Amount: 4 tablets cefTRIAXone 2023-0 2023- No 2g Q12H Infuse 2 g [facility] (ROCEPHIN) 05-[address] 2 g in 100 00:00: 05:59 venous [facility] ML Mini-Bag 00 :00 catheter l Plus every 12 (twelve) hours for 10 days. [place] 2022-[place]- [place] [id number] 1{tbl} Q6H Take 1 [facility] -acetaminop 05-[address] hen ([employer]) 00:00: 05:59 mouth [facility] 10-325 mg 00 :00 every 6 l per tablet (six) hours as needed for moderate pain or severe pain for up to 7 days .acute pain. Max Daily Amount: 4 tablets cefTRIAXone 2022-2022- No 2g Q12H Infuse 2 g [facility] (ROCEPHIN) 05-[address] 2 g in 100 00:00: 05:59 venous [facility] ML Mini-Bag 00 :00 catheter l Plus every 12 (twelve) hours for 10 days. [place] 2022- [place] [id number] 1{tbl} Q6H Take 1 [facility] -acetaminop 05-[address] hen ([employer]) 00:00: 05:59 mouth [facility] 10-325 mg [...] for 30 days. insulin 2021-04- No 0U [id number] Inject M ethodi lispro 05-25 [id number] 0-[address] (ADMELOG) 00:00: 05:59 3D [...] for 30 days. insulin 2021-04- No 0U [id number] Inject M ethodi lispro 05-25 [id number] 0-[address] (ADMELOG) 00:00: 05:59 3D [...] for 30 days. insulin 2021-04 No 0U [id number] Inject M ethodi lispro 05-25 [id number] 0-[address] (ADMELOG) 00:00: 05:59 3D [...] for 30 days. insulin 2021-04- No 0U [id number] Inject M ethodi lispro 05-25 [id number] 0-[address] (ADMELOG) 00:00: 05:59 3D [...] for 30 days. insulin 2021-04- No 0U [id number] Inject M ethodi lispro 05-25 [id number] 0-[address] (ADMELOG) 00:00: 05:59 3D [...] mouth l daily for 30 days. gabapentin 2022-1 2023- No 300mg QD Take 1 Met h[facility] (NEURONTIN) - capsule st 300 mg 00:00: 05:59 (300 mg Hospita capsule 00 :00 total) by l mouth nightly for 30 days. insulin 2021-04- No 0U [id number] Inject M ethodi lispro 05-25 [id number] 0-[address] (ADMELOG) 00:00: 05:59 3D [...] No 12.5mg Q.5D Take 0.5 Method[facility] tartrate 2-30 -[address] (LOPRESSOR) 00:00: 00:00 (12.5 [...] No 12.5mg Q.5D Take 0.5 [facility]i tartrate - tablets st (LOPRESSOR) 00:00: 00:00 (12.5 mg [...] Q.5D Take 1 Method i (ELIQUIS) 5 2-07 tablet (5 st mg tablet 00:00: 05:59 [...] Q.5D Take 1 Method i (ELIQUIS) 5 -30 tablet (5 st mg tablet 00:00: 00:00 [...] days. atorvastati 2021-04- No 40mg QD Take 2 Met hodi [...] 30 injection days. insulin 2021-04- No 0U [id number] Inject M ethodi lispro 05-14-30 [id number] 0-[address] (ADMELOG) 00:00: 00:00 3D [...] 30 injection days. insulin 2021-04- No 0U [id number] Inject M ethodi lispro 05-14 [id number] 0-[address] (ADMELOG) 00:00: 00:00 3D under the Ho spita 100 unit/mL 00 :00 skin 3 l injection (three) times a day before meals for 30 days. gabapentin 2021-04 No 300mg QD Take 1 [facility] (NEURONTIN) 05-14- capsule st 300 mg 00:00: 00:00 (300 [...] QD Take 2 Met hodi n (LIPITOR) 05-14-[address] 20 mg 00:00: 00:00 (40 mg Hospita tablet 00 :00 total) by l mouth daily for 30 days. insulin 2021-04- No 30U QD Inject 0.3 Met hodi detemir 05-14-30 mL (30 st U-100 00:00: 00:00 Units Hospita (Levemir 00 :00 total) l U-100 under the Insulin) skin daily 100 unit/mL for 30 injection days. insulin 2021-04 No 0U [id number] Inject M ethodi lispro 05-14 [id number] 0-[address] (ADMELOG) 00:00: 00:00 3D [...] 30 injection days. insulin 2021-04- No 0U [id number] Inject M ethodi lispro 05-14- [id number] 0-[address] (ADMELOG) 00:00: 00:00 3D [...] mouth l daily for 30 days. atorvastati 2021-04- No 40mg QD Take 2 Met hodi [...] 30 injection days. insulin 2021-04- No 0U [id number] Inject M ethodi lispro 05-14 [id number] 0-[address] (ADMELOG) 00:00: 00:00 3D [...] mouth l daily for 30 days. atorvastati 2021-04- No 40mg QD Take 2 Met hodi n (LIPITOR) 05-[address] 20 mg 00:00: 00:00 (40 mg Hospita tablet 00 :00 total) by l mouth daily for 30 days. insulin 2021-04- No 30U QD Inject 0.3 Met hodi detemir 05-14- mL (30 st U-100 00:00: 00:00 Units Hospita (Levemir 00 :00 total) l U-100 under the Insulin) skin daily 100 unit/mL for 30 injection days. insulin 2021-04- No 0U [id number] Inject M ethodi lispro 05-14 [id number] 0-[address] (ADMELOG) 00:00: 00:00 3D [...] 50mg Q.5D Take 1 [facility] (VIBRAMYCIN -24 - capsule st ) 50 MG 00:00: [...] times a day for 14 days. ciprofloxac 2021-04 No 500mg Q.5D Take [...] 2021- No metformin [facility] (GLUCOPHAGE 8- 08 1,[address] ) 1,000 mg 10:46: [...] a day by oral route for 90 days.[facility]: 1,000 mg metFORMIN 2021-0 Yes metformin [facility] (GLUCOPHAGE 8-26 1,[address] ) 1,000 mg 00:00: tablet Hospi ta tablet 00 Take 1 l tablet twice a day by oral route for 90 days.Stren gth: 1,000 mg metFORMIN 2021-0 3- No metformin [facility] (GLUCOPHAGE 824 1,[address] ) 1,000 mg 00:00: 00:00 tablet [facility] tablet 00 :00 Take 1 l tablet twice a day by oral route for 90 days.Stren gth: 1,000 mg metFORMIN 2021-0 2022- No metformin [facility] (GLUCOPHAGE 824 1,[address] ) 1,000 mg 00:00: 00:00 tablet [facility] tablet 00 :00 Take 1 l tablet twice a day by oral route for 90 days.Stren gth: 1,000 mg metFORMIN 2021-0 2022- No metformin [facility] (GLUCOPHAGE 824 1,[address] ) 1,000 mg 00:00: 00:00 tablet [facility] tablet 00 :00 Take 1 l tablet twice a day by oral route for 90 days.Stren gth: 1,000 mg metFORMIN 2021-0 2022- No metformin [facility] (GLUCOPHAGE 8-24 1,[address] ) 1,000 mg 00:00: 00:00 tablet [facility] tablet 00 :00 Take 1 l tablet twice a day by oral route for 90 days.Stren gth: 1,000 mg metFORMIN 2021-0 2022- No metformin [facility] (GLUCOPHAGE 8-24 1,[address] ) 1,000 mg 00:00: 00:00 tablet [facility] tablet 00 :00 Take 1 l tablet twice a day by oral route for 90 days.Stren gth: 1,000 mg metFORMIN 2021-0 2022- No metformin [facility] (GLUCOPHAGE 8-24 1,[address] ) 1,000 mg 00:00: 00:00 tablet [facility] tablet 00 :00 Take 1 l tablet twice a day by oral route for 90 days.Stren gth: 1,000 mg nicotine 2021-0 2022- No 1{patch QD Place 1 [facility] [...] 1{patch QD Place 1 [facility] (NICODERM 826 } patch on st CQ) 00:00: 04:59 the skin [facility] a mg/24 hr 00 :00 daily for l 30 days. nitrofurant 2021-2021- No 100mg Q.5D Take [...] a capsule day for 10 days. nitrofurant 0 2021- No 100mg Q.5D Take 1 Me [...] day for 10 days. traMADoL 2021- No [id number] 50mg Q6H Take 1 Metho di (ULTRAM) 50 11-08-29 tablet (50 s t mg tablet 00:00: 04:59 mg total) Ho spita 00 :00 by mouth l every 6 (six) hours as needed for moderate pain for up to 7 days .acute pain. traMADoL 2021- [place] [id number] 50mg Q6H Take 1 Metho di (ULTRAM) 50 11-08-29 tablet (50 s t mg tablet 00:00: 04:59 mg total) Ho spita 00 :00 by mouth l every 6 (six) hours as needed for moderate pain for up to 7 days .acute pain. traMADoL 2021- No [id number] 50mg Q6H Take 1 Metho di (ULTRAM) 50 11-08-29 tablet (50 s t mg tablet 00:00: 04:59 mg total) Ho spita 00 :00 by mouth l every 6 (six) hours as needed for moderate pain for up to 7 days .acute pain. traMADoL 2021- No [id number] 50mg Q6H Take 1 Metho di (ULTRAM) 50 11-08-29 tablet (50 s t mg tablet 00:00: 04:59 mg total) Ho spita 00 :00 by mouth l every 6 (six) hours as needed for moderate pain for up to 7 days .acute pain. traMADoL 2021- No [id number] 50mg Q6H Take 1 Metho di (ULTRAM) 50 11-08-29 tablet (50 s t mg tablet 00:00: 04:59 mg total) Ho spita 00 :00 by mouth l every 6 (six) hours as needed for moderate pain for up to 7 days .acute pain. traMADoL 2021- No [id number] 50mg Q6H Take 1 Metho di (ULTRAM) 50 - 07-29 tablet (50 s t mg tablet 00:00: 04:59 mg total) Ho spita 00 :00 by mouth l every 6 (six) hours as needed for moderate pain for up to 7 days .acute pain. traMADoL 2021- [place] [id number] 50mg Q6H Take 1 Metho di (ULTRAM) 50 7-08 11-29 tablet (50 s t mg tablet 00:00: 04:59 mg total) Ho spita 00 :00 by mouth l every 6 (six) hours as needed for moderate pain for up to 7 days .acute pain. traMADoL 2021- No [id number] 50mg Q6H Take 1 Metho di (ULTRAM) 50 11-08-29 tablet (50 s t mg tablet 00:00: 04:59 mg total) Ho spita 00 :00 by mouth l every 6 (six) hours as needed for moderate pain for up to 7 days .acute pain. losartan Yes [facility] (COZAAR) 50 6-14 st MG tablet 00:00: Hospita 00 l losartan 2021-0 Yes [facility] (COZAAR) 50 6-14 st MG tablet 00:00: Hospita 00 l losartan 2021-0 2022- No [facility] (COZAAR) 50 6-14 12-30 st MG tablet 00:00: 00:00 Hospita 00 :00 l losartan 2-0 2022- No [facility] (COZAAR) 50 6-14 12-30 st MG tablet 00:00: 00:00 Hospita 00 :00 l losartan 2022-0 2022- No [facility] (COZAAR) 50 6-14 12-30 st MG tablet 00:00: 00:00 Hospita 00 :00 l losartan 2-0 2022- No [facility] (COZAAR) 50 6-14 12-30 st MG tablet 00:00: 00:00 Hospita 00 :00 l losartan 2021-0 2022- No [facility] (COZAAR) 50 6-14 12-30 [...] 00:00: 00:00 Hospita 00 :00 l amoxicillin 2021- No Metho di -pot 6-14 08-26 st clavulanate 00:00: 00:00 Hospi ta (AUGMENTIN) 00 :00 l 875-125 mg per tablet ibuprofen 2021- No [facility] (ADVIL) 600 6-14 08-26 st MG tablet 00:00: 00:00 Hospita 00 :00 l amoxicillin 2021- No Metho di -pot 6-14 08-26 st clavulanate 00:00: 00:00 Hospi ta (AUGMENTIN) 00 :00 l 875-125 mg per tablet amoxicillin 2021- No Metho di -pot 6-14 08-26 st clavulanate 00:00: 00:00 Hospi ta (AUGMENTIN) 00 :00 l 875-125 mg per tablet ibuprofen 2021- No [facility] (ADVIL) 600 6-14 08-26 st MG tablet 00:00: 00:00 Hospita 00 :00 l HumaLOG Yes INJECT 5 Method i U-100 4-[address] Insulin 100 00:00: SUBCUTANEO Hospita unit/mL 00 USLY l subcutaneou BEFORE s vial MEALS. VIAL EXPIRES 28 DAYS AFTER FIRST USE. Lantus Yes INJECT 15 [facility] i U-100 4-[address] Insulin 100 00:00: SUBCUTANEO Hospita unit/mL 00 USLY AT l injection BEDTIME. (vial) VIAL EXPIRES 28 DAYS AFTER FIRST USE. [facility] Yes Q.25D 4 (four) [facility] Insulin 4-[address] Syringe 1 00:00: day. Hospita mL 30 gauge 00 l x 5/16 syringe HumaLOG Yes INJECT 5 Method i U-100 [...] 00 l x 5/16 syringe Ultracare 2021-0 2023- No Q.25D 4 (four) [facility] Insulin 4-09 05-[address] Syringe 1 00:00: 00:00 day. Hospita mL 30 gauge 00 :00 l x 5/16 syringe Ultracare 2021-0 2023- No Q.25D 4 (four) [facility] Insulin 4-09 05-[address] Syringe 1 00:00: 00:00 day. [facility]ospita mL 30 gauge 00 :00 l x 5/16 syringe [facility]are 2021-0 2023- No Q.25D 4 (four) [facility] Insulin 4-09 05-[address] Syringe 1 00:00: 00:00 day. Hospita mL 30 gauge 00 :00 l x 5/16 syringe [facility]are 2021-0 2023- No Q.25D 4 (four) [facility] Insulin 4-09 05-[address] Syringe 1 00:00: 00:00 day. Hospita mL 30 gauge 00 :00 l x 5/16 syringe [facility]are 2021-0 2023- No Q.25D 4 (four) [facility] Insulin 4-09 05-[address] Syringe 1 00:00: 00:00 day. Hospita mL 30 gauge 00 :00 l x 5/16 syringe [facility]are 2021-0 2023- No Q.25D 4 (four) [facility] Insulin 4-09 05-[address] Syringe 1 00:00: 00:00 day. Hospita mL 30 gauge 00 :00 l x 5/16 syringe HumaLOG 2021-2021- No INJECT 5 Metho di U-100 - 11-[address] Insulin 100 00:00: 00:00 [...] VIAL EXPIRES 28 DAYS AFTER FIRST USE. Atorvastati No 1{Table Atorvastat 2.16.84 n Calcium 3-11 t} in Calcium 0.1. 113 20 MG Oral 00:00: 20 MG Oral 8 83.4.2 Tablet 00 Tablet; 1 (one) Tablet qhs for 0 days Quantity: 90 {Tablet}Re fills: 0Ordered: Jhonny [facility] t: 2 Lantus 100 No 10{unit Lantus 100 2.16.84 UNIT/ML 3-11 s} UNIT/ML 0.1.113 Subcutaneou 00:00: Subcutaneo 883.4.2 s Solution 00 us Solution; 10 units qhs. for 0 days Quantity: 10 {Millilite r}Refills: 0Ordered: Jhonny [facility] t: 2 True Metrix No 1{Each} True Please 2 .16.84 Blood 3-11 Metrix substitut 0.1.113 Glucose 00:00: Blood e prn. 883.4.2 Test In 00 Glucose Vitro Strip Test In Vitro Strip; 1 (one) Each bid for 0 days Quantity: 60 {Each}Refi lls: 5Ordered: 2ELISA Garcia t: 2Comments: Please substitute prn. atorvastati Yes Take by Met hodi n (LIPITOR) [address] 20 mg 00:00: Hospita tablet 00 l atorvastati Yes Take by Met aggiei n (LIPITOR) [address] 20 mg 00:00: Hospita tablet 00 l atorvastati 2021- No Take by Me thodi n (LIPITOR) 06-[address] 20 mg 00:00: 00:00 Hospita tablet 00 :00 l atorvastati 2021- No Take by Me th[facility] n (LIPITOR) 06-[address] 20 mg 00:00: 00:00 Hospita tablet 00 :00 l atorvastati 2021- No Take by Me [facility] n (LIPITOR) 06-[address] 20 mg 00:00: 00:00 Hospita tablet 00 :00 l atorvastati 2021- No Take by Me [facility] n (LIPITOR) 06-[address] 20 mg 00:00: 00:00 Hospita tablet 00 :00 l atorvastati 2021- No Take by Me [facility] n (LIPITOR) 06-[address] 20 mg 00:00: 00:00 Hospita tablet 00 :00 l atorvastati 2021- No Take by Me [facility] n (LIPITOR) 06-[address] 20 mg 00:00: 00:00 Hospita tablet 00 :00 l metFORMIN 2020-04- No Medication 500mg Q.5D Take 1 [facility] (GLUCOPHAGE 0-05-03 refill tablet by [employer] ) 500 mg 00:00: 23:59 mouth 2 tablet 00 :00 times daily (with meals) for 90 days. metFORMIN 2020-04- No Medication 500mg Q.5D Take 1 [facility] (GLUCOPHAGE 0-15 05-03 refill tablet by [employer] ) 500 mg 00:00: 23:59 mouth 2 tablet 00 :00 times daily (with meals) for 90 days. cephalexin 2020- No 500mg [id number] Take 1 [facility] (KEFLEX) 01-02 [id number] capsule s t 500 MG 00:00: 04:59 3D (500 mg Hospita capsule 00 :00 total) by l mouth 3 (three) times a day for 7 days. cephalexin 2020- No 500mg [id number] Take 1 [facility] (KEFLEX) 01-02 [id number] capsule s t 500 MG 00:00: 04:59 [...] Memoria 0-27 (Same As: l 20:33: Flexeril) [place] 00 Motrin 2015-04 No Notes: Memoria 0-27 (Same as: l 20:33: Motrin) [place] 00 "Do Not Crush" Give with food. 24 HR No Notes: [facility]oria Metformin 9-15 (Same as: l hydrochlori 14:00: Glucophage [place] de 500 MG 00 XR) "Do Extended Not Crush" Release Tablet Azithromyci No Notes: [place] betty n 9-15 Take 1 l 14:00: hour [place] 00 before or 2 hours after meals. (Same As: Zithromax) Prednisone No Notes: Memor ia 9-15 Take with l 14:00: food. [place] 00 24 HR Yes 1,000 mg = Memori a Metformin -15 2 tab, PO, l hydrochlori 00:46: BID, # 120 [place] de 500 MG 10 tab, 0 Extended Refill(s), Release Pharmacy: Tablet [facility] [id number] [facility] 120 ACTUAT Yes 2 puff, [place] betty Albuterol 9-15 INHALATION l 0.1 00:46: , QID, # 1 [place] MG/ACTUAT / 00 ea, 0 Ipratropium Refill(s), [facility] [id number] MG/ACTUAT [facility] Metered Dose Inhaler [Combivent 20/100] predniSONE Yes 20 mg = 1 Me moria 20 mg oral 9-15 tab, PO, l tablet 00:46: Daily, X 3 Keesha nn 00 day, # 3 tab, 0 Refill(s), Pharmacy: [place] [id number] [facility] Insulin No 60 units) [place] betty regular 01-02 WASTE: F/P l 21:18: - Black; E [place] - [facility] Trash Bin Stable for 28 days at room temperatur e Expires in days from ____Date Glucagon No 1 mg, Memoria 01-02 Route: IM, l 21:18: Drug form: [place] PDR/INJ, PRN, Dosing Weight 88.21, kg, PRN Blood Glucose Results, Start date: 01/03/16 16:18:00 CDT, Duration: 30 day, Stop date: 02/02/16 16:17:00 CDT Dextrose No 12.5 gm, Memor ia 50% Syringe 01-02 25 mL, l 21:18: Route: [place] IVP, Drug Form: INJ, Dosing Weight 88.21, kg, PRN, PRN Blood Glucose Results, Start date: 01/03/16 16:18:00 CDT, Duration: 30 day, Stop date: 02/02/16 16:17:00 CDT Albuterol No Notes: Memori a 0.833 MG/ML 01-02 (Same as: l / 19:00: Duoneb) [place] Ipratropium 00 [place] 0.167 MG/ML Inhalant Solution Enoxaparin No Notes: Memor ia 9-14 (Same as: l 14:00: Lovenox) [place] 00 Ceftriaxone No Notes: [place] betty -14 (Same As: l 14:00: Rocephin). [place] 00 Use with 100 mL NS and infuse over 30 min MEDICATION WASTE Product Size: 1000 mg Product Wasted: ___ mg Sodium No 25 mL, Memoria Chloride 01-02 Route: IV, l 0.9% IV 13:53: Start [place] 00 date: 01/03/16 8:53:00 CDT, Duration: 30 day, Stop date: 02/02/16 8:52:00 CDT, PRN Line Flush BD Normal No Notes: Memori a Saline 14 (Same as: l Flush 13:53: BD [place] Posiflush) BD Normal No Notes: Memori a Saline 01-02 (Same as: l Flush 13:52: BD [place] 00 Posiflush) Albuterol No Notes: SEE Me moria 0.83 MG/ML 01-02 RT l Inhalant 13:40: DOCUMENTAT Her [place] Solution 00 ION (Same as: Proventil) Azithromyci No Notes: [place] betty n 14 Take 1 l 13:40: hour [place] 00 before or 2 hours after meals. (Same As: Zithromax) methylPREDN No Notes: [place] betty ISolone 14 (Same l SODium 08:01: as:Solu-ME Keesha nn SUCCinate 00 DROL, A-Methapre d) Saline No Notes: Memoria Flush 0.9% 01-02 (Same as: l 08:01: BD Guille 00 Posiflush) 200 ACTUAT No Notes: Memor ia [...] Cleocin) Tylenol No Notes: Do Memor ia 830 not exceed l 17:51: 4 gm/day. (Same as: Tylenol) Insulin No 60 units) [place] betty regular 12-18 WASTE: F/P l 13:02: - Black; E - Municipal Trash Bin Stable for 28 [...] 12-18 Route: IM, l 13:02: Drug form: PDR/INJ, PRN, Dosing Weight 78.7, kg, PRN Blood Glucose Results, Start date: 12/19/15 8:02:00 CDT, Duration: 30 day, Stop date: 01/18/16 8:01:00 CDT Ondansetron No Notes: [place] betty 30 (Same as: l 13:02: Zofran) MEDICATION WASTE Product Size: 4 mg Product Wasted: ___ mg Docusate No Notes: Memoria 30 (Same as: l 13:02: Colace) (Do Not Crush) Metformin No 500 mg, Memor ia 8-30 PO, BID, 0 l 12:56: Refill(s) Clindamycin 2016-0 No 900 mg, Mem oria 8-30 Route: l 11:10: IVPB, Guille 00 ONCE, Dosing Weight 78.7, kg, Priority: STAT, Start date: 12/19/15 6:10:00 CDT, Stop date: 12/19/15 6:10:00 CDT Acetaminoph No Notes: [place] betty en 325 MG / 12-18 (Same as: l Hydrocodone 06:19: Lilly Keesha nn Bitartrate 00 325/5) Do 5 MG Oral not exceed Tablet 4gm/day of [Lilly acetaminop 5/325] hen. Insulin No Notes: Memoria regular 12-12 (Same as: l 05:07: Humulin R Guille and NovoLIN R) WASTE: F/P - Black; E - Municipal Trash Bin (Do not shake) Ativan No 2 mg, Memoria 12-12 Route: PO, l 04:14: Drug form: Guille 00 TAB, ONCE, Dosing Weight 93.182, kg, [...] ts Source Name Name Pneumococcal 2022-04-19 Completed [facility] 20-valent Conjugate 00:00:00 [facility] Vaccine FLUCELVAX QUAD PF 2022-04-[address] 00:00:00 [facility] Pneumococcal 2022-04-19 Completed Denominational 20-valent Conjugate 00:00:00 Hospi amber Vaccine FLUCELVAX QUAD 2022-04-[address] 00:00:00 [facility] Pneumococcal 2022-04-19 Completed [facility]ational 20-valent Conjugate 00:00:00 Hospi amber Vaccine FLUCELVAX QUAD PF 2022-04-[address] 00:00:00 [facility] Pneumococcal 2022-04-19 Completed [facility] 20-valent Conjugate 00:00:00 Hospi amber Vaccine FLUCELVAX QUAD 2022-04-[address] 00:00:00 [facility] Pneumococcal 2022-04-19 Completed Denominational 20-valent Conjugate 00:00:00 Hospi amber Vaccine FLUCELVAX QUAD PF 2022-04-[address] 00:00:00 Hospital Pneumococcal 2022-04-19 Completed Denominational 20-valent Conjugate 00:00:00 Hospi amber Vaccine FLUCELVAX QUAD PF 2022-04-[address] 00:00:00 Hospital pneumococcal 2016-01-04 Completed [facility] mckeon 23-valent vaccine 01:30:00 influenza virus 2016-01-04 Completed Ronni Han vaccine, inactivated 01:26:00 Vital Signs Vital Name Observation Time Observation Value Comments Source Systolic blood 2022-09-13 113 mm[Hg] University of pressure 03:30:00 [facility] Diastolic blood 2022-09-13 59 mm[Hg] University o f pressure 03:30:00 [facility] Heart rate 2022-09-13 62 /min University of 03:30:00 [facility] Respiratory rate 2022-09-13 17 /min University of 03:30:00 [facility] Oxygen saturation 2022-09-13 96 /min University of in Arterial blood 03:30:00 [facility] dilshad by Pulse oximetry Branch Body temperature 2022-09-13 37.11 Jaqueline University of 02:29:00 [facility] Body height 2022-09-13 121.9 cm University of 02:29:00 [facility] Body weight 2022-09-13 87.544 kg University of 02:29:00 [facility] BMI 2022-09-13 58.89 kg/m2 University of 02:29:00 [facility] Systolic blood 2022-09-12 100 mm[Hg] University of pressure 18:47:00 [facility] Diastolic blood 2022-09-12 67 mm[Hg] University o f pressure 18:47:00 [facility] Heart rate 2022-09-12 58 /min University of 18:47:00 [facility] Body temperature 2022-09-12 36.17 Jaqueline University of 18:47:00 [facility] Body weight 2022-09-12 87.544 kg University of 18:47:00 [facility] BMI 2022-09-12 58.89 kg/m2 University of 18:47:00 [facility] Oxygen saturation 2022-09-12 97 /min University of in Arterial blood 18:47:00 [facility] by Pulse oximetry Branch Systolic blood 2022-08-14 122 mm[Hg] University of pressure 07:31:00 [facility] Diastolic blood 2022-08-14 55 mm[Hg] University o f pressure 07:31:00 [facility] Heart rate 2022-08-14 55 /min University of 07:31:00 [facility] Respiratory rate 2022-08-14 15 /min University of 07:31:00 [facility] Oxygen saturation 2022-08-14 94 /min University of in Arterial blood 07:31:00 [facility] dilshad by Pulse oximetry Branch Body temperature 2022-08-14 37 Jaqueline [place] of 05:10:00 [facility] Body height 2022-08-14 121.9 cm "without my University of 05:10:00 legs" [facility] Body weight 2022-08-14 81.647 kg University of 05:10:00 [facility] BMI 2022-08-14 54.93 kg/m2 University of 05:10:00 [facility] Systolic blood 2022-08-05 175 mm[Hg] University of pressure 18:25:00 [facility] Diastolic blood 2022-08-05 71 mm[Hg] University o f pressure 18:25:00 [facility] Heart rate 2022-08-05 60 /min University of 18:24:00 [facility] Body temperature 2022-08-05 36.67 Jaqueline University of 18:24:00 [facility] Respiratory rate 2022-08-05 18 /min University of 18:24:00 [facility] Body height 2022-08-05 121.9 cm University of 18:24:00 [facility] Oxygen saturation 2022-08-05 100 /min [place] of in Arterial blood 18:24:00 [facility] by Pulse oximetry Branch Systolic blood 2022-07-31 130 mm[Hg] University of pressure 21:05:00 [facility] Diastolic blood 2022-07-31 47 mm[Hg] University o f pressure 21:05:00 [facility] Heart rate 2022-07-31 61 /min University of 21:05:00 [facility] Body temperature 2022-07-31 36.83 Jaqueline University of 21:05:00 [facility] Respiratory rate 2022-07-31 16 /min University of 21:05:00 [facility] Oxygen saturation 2022-07-31 99 /min [place] of in Arterial blood 21:05:00 [facility] by Pulse oximetry Branch Body height 2022-07-29 121.9 cm BKA University of 15:00:00 [facility] Body weight 2022-07-28 92 kg University of 07:00:00 [facility] BMI 2022-07-28 61.89 kg/m2 University of 07:00:00 [facility] Systolic blood 2022-07-19 116 mm[Hg] University of pressure 06:20:00 [facility] Diastolic blood 2022-07-19 82 mm[Hg] University o f pressure 06:20:00 [facility] Heart rate 2022-07-19 54 /min [facility] 06:20:00 [facility] Body temperature 2022-07-19 36.5 Jaqueline [facility] 06:20:00 [facility] Respiratory rate 2022-07-19 16 /min [facility] 06:20:00 [facility] Oxygen saturation 2022-07-19 95 /min [facility] in Arterial blood 06:20:00 [facility] by Pulse oximetry [place] Body height 2022-07-19 121.9 cm [facility] 02:38:00 [facility] Body weight 2022-07-19 79.379 kg [facility] 02:38:00 [facility] BMI 2022-07-19 53.40 kg/m2 [facility] 02:38:00 [facility] Temperature 2021-06-29 97 [degF] Method: Oral [id number] 8 13:17:12 3.4.2 Pulse 2021-06-29 77 /min Pattern: [id number] 8 13:17:12 Regular 3.4.2 Respiration Rate 2021-06-29 18 /min Pattern: [id number]. [id number] 13:17:12 Unlabored 3.4.2 BP Systolic 2021-06-29 139 mm[Hg] Patient [id number] 8 13:17:12 Position: 3.4.2 Sitting; Cuff Location: Left Arm; Cuff Size: Standard BP Diastolic 2021-06-29 82 mm[Hg] Patient [id number] 8 13:17:12 Position: 3.4.2 Sitting; Cuff Location: Left Arm; Cuff Size: Standard Systolic blood 2022-07-03 122 mm[Hg] [facility] pressure 17:14:00 Hospital Diastolic blood 2022-07-03 57 mm[Hg] [facility] pressure 17:14:00 Hospital Heart rate 2022-07-03 64 /min [facility] 17:14:00 Hospital Body temperature 2022-07-03 37 Jaqueline [facility] 16:20:31 [facility] Respiratory rate 2022-07-03 21 /min [facility] 16:20:31 Hospital Oxygen saturation 2022-07-03 98 /min [facility] in Arterial blood 16:20:31 Hospital by Pulse oximetry Body height 2022-06-29 170.2 cm [facility] 02:00:00 Hospital Body weight 2022-06-28 81.149 kg [facility] 12:00:00 Hospital BMI 2022-06-28 28.02 kg/m2 [facility] 12:00:00 Hospital Systolic blood 2021-12-14 140 mm[Hg] [facility] pressure 16:16:14 Hospital Diastolic blood 2021-12-14 72 mm[Hg] [facility] pressure 16:16:14 Hospital Heart rate 2021-12-14 74 /min [facility] 16:16:14 Hospital Body temperature 2021-12-14 36.22 Jaqueline [facility] 16:16:14 Hospital Respiratory rate 2021-12-14 20 /min [facility] 16:16:14 Hospital Oxygen saturation 2021-12-14 100 /min [facility] in Arterial blood 16:16:14 Hospital by Pulse oximetry Body height 2021-12-11 170.2 cm [facility] 22:35:00 Hospital Body weight 2021-12-11 88.451 kg [facility] 22:35:00 [facility] BMI 2021-12-11 30.54 kg/m2 [facility] 22:35:00 [facility] Systolic blood 2021-02-02 153 mm[Hg] [facility] pressure 16:00:00 Diastolic blood 2021-02-02 79 mm[Hg] [facility] h pressure 16:00:00 Heart rate 2021-02-02 84 /min [facility] 16:00:00 Body temperature 2021-02-02 36.67 Jaqueline [facility] 16:00:00 Respiratory rate 2021-02-02 18 /min [facility] 16:00:00 Oxygen saturation 2021-02-02 97 /min [facility] lt in Arterial blood 16:00:00 by Pulse oximetry Body height 2021-02-02 177.8 cm [facility] 14:44:00 Body weight 2021-02-02 81.647 kg [facility] 14:44:00 BMI 2021-02-02 25.83 kg/m2 [facility] 14:44:00 Temperature Oral 2016-02-16 98 F [facility] rmann (F) 02:05:00 Respitory Rate 2016-02-16 Ronni Bach richie 02:05:00 Heart Rate 2016-02-16 Ronni Juarez n 02:05:00 Systolic (mm Hg) 2016-02-16 [facility] rmann 02:05:00 Diastolic (mm Hg) 2016-02-16 [facility] 02:05:00 Temperature Oral 2016-02-15 98.5 F [facility] (F) 20:23:00 Height 2016-02-15 170.18 cm [...] n 21:00:00 Temperature Oral 2016-01-03 97.5 F [facility] Codey rmann (F) 21:00:00 Systolic (mm Hg) 2016-01-03 [facility] 17:00:00 Diastolic (mm Hg) 2016-01-03 [facility] 17:00:00 Respitory Rate 2016-01-03 [facility] richie 17:00:00 Heart Rate 2016-01-03 [facility] Larry n 17:00:00 Temperature Oral 2016-01-03 98.2 F [facility] r[facility] (F) 17:00:00 BMI Calculated 2016-01-03 [facility] [...] n 03:33:00 Temperature Oral 2015-12-19 98.8 F [facility] Codey rmann (F) 03:33:00 Respitory Rate 2015-12-19 [...] He rmann 08:15:00 Diastolic (mm Hg) 2015-12-13 [facility] H ermann 08:15:00 Respitory Rate 2015-12-13 [facility] richie 08:15:00 Heart Rate 2015-12-13 [facility] Larry n 08:15:00 BMI Calculated 2015-12-13 [facility] richie 03:44:00 Weight 2015-12-13 [facility] n 03:44:00 Height 2015-12-13 170.18 cm [facility] n 03:44:00 Systolic (mm Hg) 2015-12-13 [facility] rmann 03:44:00 Diastolic (mm Hg) 2015-12-13 [facility] H ermann 03:44:00 Respitory Rate 2015-12-13 [facility] richie 03:44:00 Heart Rate 2015-12-13 [facility] Larry n 03:44:00 Temperature Oral 2015-12-13 98.8 F [facility] Codey rmann (F) 03:44:00 Procedures Procedure Date / Time Performing Clinician Source Performed EKG-12 LEAD 2022-09-13 03:45:38 Hui Paez [facility] BASIC METABOLIC PANEL 2022-09-13 02:46:00 Hui Paez [facility] versity [facility] (NA, K, CL, CO2, GLUCOSE, Medica l Branch BUN, CREATININE, CA) CONSENT/REFUSAL FOR 2022-09-13 02:24:56 Doctor Unassigned, No [facility] [place] [facility] Name Medical Branch XR LUMBAR SPINE 5 VW 2022-09-12 20:57:55 Alexandra Finnegan [facility] XR HIPS 3 VW LEFT 2022-09-12 20:57:55 Kain [facility] PROSTATIC SPECIFIC 2022-09-12 19:52:00 Jaime Finneganssica [facility] ANTIGEN [facility] FREE T4 2022-09-12 19:52:00 Kain [facility] THYROID STIMULATING 2022-09-12 19:52:00 Alexandra Finnegan [facility] HORMONE [facility] Branch COMP. METABOLIC PANEL 2022-09-12 19:52:00 Kain Alexandra [facility] ([id number]) [facility] LIPID PANEL ([id number])(TOTAL 2022-09-12 19:52:00 Alexandra Finnegan [facility] CHOLESTEROL, [facility] TRIGLYCERIDES, HDL) CBC WITH DIFF 2022-09-12 19:52:00 Kain [facility] GLYCOSYLATED HEMOGLOBIN 2022-09-12 19:52:00 Kain [facility] (A1C) [facility] URINALYSIS 2022-09-12 19:52:00 Kain [facility] DME/SUPPLY JUSTIFICATION 2022-09-04 05:01:00 Doctor Unassigned, No [facility] Name [facility] POCT GLUCOSE (AUTOMATED) 2022-08-14 07:28:00 Les Ellsworth [facility] URINE DRUG (IMMUNOASSAY) 2022-08-14 06:10:00 Les Ellsworth [facility] - COMPREHENSIVE DRUG Medical [facility] nc SCREEN URINALYSIS 2022-08-14 06:10:00 Les Ellsworth [facility] BASIC METABOLIC PANEL 2022-08-14 05:43:00 Les Ellsworth [facility] (NA, K, CL, CO2, GLUCOSE, Medica l Branch BUN, CREATININE, CA) CBC WITH DIFF 2022-08-14 05:43:00 Les Ellsworth [facility] LACTIC ACID WHOLE BLOOD 2022-08-14 05:43:00 Les Ellsworth [facility] CONSENT/REFUSAL FOR 2022-08-14 05:01:57 Doctor Unassigned, No [facility] DNR 2022-08-07 05:01:00 Doctor Unassigned, No [facility]iver [facility] HOME HEALTH 485 2022-08-02 05:01:00 Doctor Unassigned, No Univer sity of [facility] POCT GLUCOSE (AUTOMATED) 2022-07-31 22:26:00 Mayo, Malik [facility] ([facility]OMATED) 2022-07-31 17:13:00 Mayo, [facility] POCT GLUCOSE (AUTOMATED) 2022-07-31 01:46:00 Mayo, Malik [facility] POCT GLUCOSE (AUTOMATED) 2022-07-30 23:16:00 Mayo, Malik [facility] POCT GLUCOSE (AUTOMATED) 2022-07-30 18:42:00 Mayo, [facility] POCT GLUCOSE (AUTOMATED) 2022-07-30 14:18:00 Mayo, Malik [facility] MAGNESIUM 2022-07-30 10:58:00 Kelsey [facility] BASIC METABOLIC PANEL 2022-07-30 10:58:00 Mihai Cole [facility] (NA, K, CL, CO2, GLUCOSE, Medica l Branch BUN, CREATININE, CA) CBC WITH DIFF 2022-07-30 10:58:00 Kelsey [facility] POCT GLUCOSE (AUTOMATED) 2022-07-30 01:36:00 MayoMalik [facility] POCT GLUCOSE (AUTOMATED) 2022-07-29 22:43:00 Mayo, [facility] POCT GLUCOSE (AUTOMATED) 2022-07-29 18:35:00 Mayo [facility] IRON PANEL 2022-07-29 17:06:00 Kelsey [facility] CT ANGIOGRAM LOWER 2022-07-29 16:36:24 Yordy Thornton [facility] EXTREMITY LEFT W CONTRAST Medica l Branch ACTIVATED PARTIAL 2022-07-29 13:53:[address] [facility] POCT GLUCOSE (AUTOMATED) 2022-07-29 13:45:00 Malik Mayo [facility] MAGNESIUM 2022-07-29 10:36:00 [facility] 2022-07-29 10:36:00 Mihai Cole [facility] HEPATIC FUNCTION PANEL 2022-07-29 10:36:00 Slim [facility] ([id number]) (ALB,T.PRO,BILI Medical [place] T,BU/BC,ALT,AST,ALK PHOS) BASIC METABOLIC PANEL 2022-07-29 10:36:00 Slim [facility] (NA, K, CL, CO2, GLUCOSE, Medica l Branch BUN, CREATININE, CA) CBC WITH DIFF 2022-07-29 10:36:00 [facility] ACTIV[facility] PARTIAL 2022-07-29 07:13:[address] [facility] URINALYSIS 2022-07-29 01:44:00 [facility], URINE RANDOM 2022-07-29 01:44:00 Darius [facility] UREA NITROGEN, URINE 2022-07-29 01:44:00 Darius [facility] SODIUM, URINE RANDOM 2022-07-29 01:44:00 Darius [facility] POCT GLUCOSE (AUTOMATED) 2022-07-29 01:17:00 Malik Mayo [facility] POCT GLUCOSE (AUTOMATED) 2022-07-28 21:09:00 Brennan Love [facility] BASIC METABOLIC PANEL 2022-07-28 19:01:00 Demetrice Sanchez [facility] (NA, K, CL, CO2, GLUCOSE, Medica l Branch BUN, CREATININE, CA) ACTIVATED PARTIAL 2022-07-28 19:01:[address] [facility] POCT GLUCOSE (AUTOMATED) 2022-07-28 17:12:00 Brennan Love [facility] BASIC METABOLIC PANEL 2022-07-28 14:28:00 Demetrice Sanchez [facility] (NA, K, CL, CO2, GLUCOSE, Medica l Branch BUN, CREATININE, CA) ACTIVATED PARTIAL 2022-07-28 14:28:[address] [facility] POCT GLUCOSE (AUTOMATED) 2022-07-28 12:52:00 Brennan Love [facility] HB ECG ROUTINE & RHYTHM 2022-07-28 10:09:24 Scooter Barroso [facility] CREATINE KINASE 2022-07-28 08:02:00 Yrody Thornton [facility] C-REACTIVE PROTEIN 2022-07-28 08:02:00 Yordy Thornton [facility] COMP. METABOLIC PANEL 2022-07-28 08:02:00 Yordy Thornton [facility] ([id number]) [facility] VANCOMYCIN RANDOM LEVEL 2022-07-28 08:02:00 Yordy Thornton [facility] SEDIMENTATION RATE 2022-07-28 08:02:00 Yordy Thornton [facility] CBC WITH DIFF 2022-07-28 08:02:00 Yordy Thornton [facility] GLYCOSYLATED HEMOGLOBIN 2022-07-28 08:02:00 Yordy Thornton [facility] (A1C) [facility] PROTHROMBIN TIME / INR 2022-07-28 08:02:00 Yordy Thornton [facility] ACTIVATED PARTIAL 2022-07-28 08:02:[address] [facility] MRSA / MSSA SCREEN BY 2022-07-28 08:02:00 Yordy Thornton [facility] (AUTOMATED) 2022-07-28 08:01:00 Brennan Love [facility] COMP. METABOLIC PANEL 2022-07-19 02:58:00 Adolfo Hurley [facility] ([id number]) [facility] Branch CBC WITH DIFF 2022-07-19 02:58:00 Adolfo Hurley [facility] NOTICE OF PRIVACY 2022-07-19 02:27:02 Doctor Unassigned, No Univ [facility] PRACTICES Name [facility] Branch CONSENT/REFUSAL FOR 2022-07-19 02:25:51 Doctor Unassigned, No [facility] Name [facility] POC GLUCOSE 2022-07-03 16:21:00 Naif Cartagena Ho spital POC GLUCOSE 2022-07-03 12:18:00 Naif Cartagena Ho spital POC GLUCOSE 2022-07-03 01:29:00 Naif Cartagena Ho spital POC GLUCOSE 2022-07-02 21:46:00 Naif Cartagena Ho spital POC GLUCOSE 2022-07-02 16:16:00 Naif Cartagena Ho spital POC GLUCOSE 2022-07-02 12:16:00 Naif Cartagena Ho spital BASIC METABOLIC PANEL 2022-07-02 10:11:00 [facility] 2022-07-02 10:11:00 [facility] Ho spital POC GLUCOSE 2022-07-02 01:23:00 Francesca Stevens spital POC GLUCOSE 2022-07-01 21:46:00 Francesca Stevens spital XR CHEST 1 VW PORTABLE 2022-07-01 20:15:43 [facility] 2022-07-01 20:09:45 Autumn Martinez [facility] POC GLUCOSE 2022-07-01 16:17:00 Francesca Stevens spital CARBAPENEMASE GENES 2022-07-01 16:15:00 Francesca Stevens [facility] POC GLUCOSE 2022-07-01 12:23:00 Francesca Stevens spital VANCOMYCIN LEVEL, RANDOM 2022-07-01 11:14:00 Wilberto Joe [facility] POC GLUCOSE 2022-07-01 01:24:00 Francesca Stevens Ho spital POC GLUCOSE 2022-06-30 22:08:00 Francesca Stevens [facility] POC GLUCOSE 2022-06-30 16:12:00 Francesca Stevens Ho spital CARBAPENEMASE GENES 2022-06-30 15:00:00 Hilda [facility] POC GLUCOSE 2022-06-30 12:23:00 Francesca Stevensist Ho spital BASIC METABOLIC PANEL 2022-06-30 11:31:00 Hilda [facility] CBC WITH PLATELET AND 2022-06-30 11:31:00 Hilda [facility] DIFFERENTIAL ESTIMATED GFR 2022-06-30 11:31:00 Francesca Stevens Ho spital POC GLUCOSE 2022-06-30 01:47:00 Francesca Stevens [facility] POC GLUCOSE 2022-06-29 22:47:00 Francesca Stevens [facility] POC GLUCOSE 2022-06-29 17:19:00 Francesca Stevens [facility] POC GLUCOSE 2022-06-29 13:13:00 YounFrancesca mathew [facility] POC GLUCOSE 2022-06-29 02:41:00 Francesca Stevens [facility] POC GLUCOSE 2022-06-28 22:40:00 Francesca Stevens [facility] POC GLUCOSE 2022-06-28 17:47:00 Francesca Stevens [facility] POC GLUCOSE 2022-06-28 13:30:00 Francesca Stevens [facility] BASIC METABOLIC PANEL 2022-06-28 12:11:00 Hilda [facility] ESTIMATED GFR 2022-06-28 12:11:00 Francesca Stevens [facility] POC GLUCOSE 2022-06-28 02:28:00 Francesca Stevens [facility] POC GLUCOSE 2022-06-27 22:12:00 Francesca Stevens [facility] POC GLUCOSE 2022-06-27 17:26:00 YounUbaldo mathewa [facility] sp[facility] POC GLUCOSE 2022-06-27 13:29:00 Francesca Stevens Ho spital POC GLUCOSE 2022-06-27 02:09:00 Francesca Stevens Ho spital POC GLUCOSE 2022-06-26 23:37:00 Francesca Stevens Ho spital FUNGUS CULTURE 2022-06-26 23:17:00 Nurko, Davin Faulkner Ho spital AF[employer] CULTURE 2022-06-26 23:17:00 Cassidyko, Davin Faulkner Ho spital GRAM STAIN 2022-06-26 23:17:00 Nurko, Davin Faulkner Ho spital [employer] STAIN 2022-06-26 23:17:00 Nurko, Davin Faulkner Ho spital [employer] CULTURE 2022-06-26 23:09:00 Cassidyko, Davin Faulkner spital FUNGUS SMEAR 2022-06-26 23:09:00 Aaron, Davin Faulkner spital [employer] STAIN 2022-06-26 23:09:00 Cassidyko, Davin Faulkner spital FUNGUS CULTURE 2022-06-26 23:09:00 Davin Walker spital [place] AN ELECTIVE 2022-06-26 22:52:00 [facility] SUPRAGLOTTIC AIRWAY DEBRIDEMENT, LOWER 2022-06-26 22:30:00 [facility] EXTREMITY ANAEROBIC CULTURE 2022-06-26 22:17:00 [facility] AEROBIC CULTURE 2022-06-26 22:17:00 Cassidy, Davin Faulkner spital TISSUE CULTURE 2022-06-26 22:09:00 Cassidy [facility] spital ANAEROBIC CULTURE 2022-06-26 22:09:00 [facility] POC GLUCOSE 2022-06-26 21:46:00 Francesca Stevens Ho spital POC GLUCOSE 2022-06-26 18:45:00 Francesca Stevens Ho spital VANCOMYCIN LEVEL, RANDOM 2022-06-26 15:33:[address] [facility] POC GLUCOSE 2022-06-26 14:15:00 Francesca Stevens Ho spital CBC WITH PLATELET AND 2022-06-26 11:43:00 Brian Powell [facility] DIFFERENTIAL BASIC METABOLIC PANEL 2022-06-26 11:43:00 Brian Powell [facility] MAGNESIUM LEVEL 2022-06-26 11:43:00 Brian Powell Tish [facility] PROTHROMBIN TIME WITH INR 2022-06-26 11:43:00 Louisa Escobar [facility] ESTIMATED GFR 2022-06-26 11:43:00 Brian Powell [facility] POC GLUCOSE 2022-06-26 02:46:00 Francesca Stevens Ho spital LACTIC ACID LEVEL, SEPSIS 2022-06-26 02:02:[address] [facility] - NOW AND REPEAT 2X EVERY 3 HOURS POC GLUCOSE 2022-06-25 22:12:00 Francesca Stevens Ho spital LACTIC ACID LEVEL, SEPSIS 2022-06-25 22:06:[address] [facility] - NOW AND REPEAT 2X EVERY 3 HOURS ECG 12-LEAD 2022-06-25 19:43:10 [facility]cl[facility] oaklandBrian ellis Tish [facility] INFLUENZA ANTIGEN TEST, 2022-06-25 19:18:00 [facility] REFLEX NEGATIVE TO RPP RESPIRATORY PATHOGEN 2022-06-25 19:18:00 Brian Powell [facility] PANEL WITH COVID-19 RT-PCR METHICILLIN-RESISTANT 2022-06-25 19:15:00 Brian Powell [facility] STAPHYLOCOCCUS AUREUS (MRSA), LEILANI LACTIC ACID LEVEL, SEPSIS 2022-06-25 19:01:[address] [facility] - NOW AND REPEAT 2X EVERY 3 HOURS XR CHEST 1 VW PORTABLE 2022-06-25 18:53:03 Brian Powell [facility] XR FEMUR 2 VW LEFT 2022-06-25 18:52:28 Brian Powell [facility] BLOOD CULTURE, AEROBIC & 2022-06-25 18:05:[address] [facility]Brian [facility] ANAEROBIC BLOOD CULTURE, AEROBIC & 2022-06-25 18:00:00 [facility] CBC WITH PLATELET AND 2022-06-25 17:56:00 [facility] DIFFERENTIAL COMPREHENSIVE METABOLIC 2022-06-25 17:56:00 [facility] PANEL PROTHROMBIN TIME WITH INR 2022-06-25 17:56:00 [facility] ESTIMATED GFR 2022-06-25 17:56:00 [facility] MAGNESIUM LEVEL 2022-06-25 17:56:00 [facility] POC GLUCOSE 2022-06-25 17:06:00 Francesca Stevens [facility] spital POC GLUCOSE 2022-05-14 17:15:00 [facility] [facility] VENIPUNC NEED PHYS 2022-05-14 16:30:[address] [facility] SKILL,DX OR RX POC GLUCOSE 2022-05-14 13:17:[address] [facility] CBC WITH PLATELET AND 2022-05-14 11:43:00 [facility] DIFFERENTIAL BASIC METABOLIC PANEL 2022-05-14 11:43:00 [facility] ESTIMATED GFR 2022-05-14 11:43:[address] [facility] POC GLUCOSE 2022-05-14 02:36:[address] [facility] POC GLUCOSE 2022-05-13 22:14:[address] [facility] POC GLUCOSE 2022-05-13 17:21:[address] [facility] POC GLUCOSE 2022-05-13 13:25:[address] [facility] CBC WITH PLATELET AND 2022-05-13 11:23:00 [facility] DIFFERENTIAL BASIC METABOLIC PANEL 2022-05-13 11:23:00 [facility] ESTIMATED GFR 2022-05-13 11:23:[address] [facility] POC GLUCOSE 2022-05-13 02:26:00 [facility] 2022 22:54:00 [facility] POC GLUCOSE 2022 17:23:[address] [facility] POC GLUCOSE 2022 13:33:[address] [facility] CBC WITH PLATELET AND 2022 10:15:00 Harinder [facility] DIFFERENTIAL BASIC METABOLIC PANEL 2022 10:15:[address] [facility] ESTIMATED GFR 2022 10:15:00 [facility] POC GLUCOSE 2022 03:36:00 [facility] POC GLUCOSE 2022-05-11 22:17:[address] [facility] BLOOD CULTURE, AEROBIC & 2022-05-11 21:45:00 [facility] ANAEROBIC BLOOD CULTURE, AEROBIC & 2022-05-11 21:28:00 [facility] ANAEROBIC POC GLUCOSE 2022-05-11 17:11:00 [facility] POC GLUCOSE 2022-05-11 13:14:[address] [facility] CBC WITH PLATELET AND 2022-05-11 10:35:00 [facility] DIFFERENTIAL BASIC METABOLIC PANEL 2022-05-11 10:35:00 [facility] ESTIMATED GFR 2022-05-11 10:35:[address] [facility] POC GLUCOSE 2022-05-11 02:33:00 [facility] POC GLUCOSE 2022-05-10 22:49:[address] [facility] BLOOD CULTURE, AEROBIC & 2022-05-10 22:13:00 [facility] ANAEROBIC HC NERVE BLOCK INJ 2022-05-10 19:31:21 Swapna [facility] FEMORAL SINGLE W IMG GUID HC ANESTH SCIATIC NERVE 2022-05-10 19:23:41 [facility] 2022-05-10 18:34:00 [facility] SURGICAL PATHOLOGY 2022-05-10 18:13:00 [facility] RE[facility] AN ELECTIVE 2022-05-10 17:24:[address] [facility] SUPRAGLOTTIC AIRWAY AMPUTATION, BELOW KNEE 2022-05-10 16:57:00 [facility] POC GLU[facility]SE 2022-05-10 15:58:[address] [facility] TTE COMPLETE, WO 2022-05-10 14:38:42 Mi Cruz [facility] CONTRAST, W DOPPLER ([id number]) POC GLUCOSE 2022-05-10 13:14:[address] [facility] CBC WITH PLATELET AND 2022-05-10 12:19:00 [facility] DIFFERENTIAL BASIC METABOLIC PANEL 2022-05-10 12:19:00 [facility] PARTIAL THROMBOPLASTIN 2022-05-10 12:19:00 [facility] TIME (PTT) PROTHROMBIN TIME WITH INR 2022-05-10 12:19:00 ShawnLouisa perez [facility] ESTIMATED GFR 2022-05-10 12:19:[address] [facility] POC GLUCOSE 2022-05-10 03:02:[address] [facility] POC GLUCOSE 2022-05-09 22:30:[address] [facility] POC GLUCOSE 2022-05-09 18:05:[address] [facility] US ANKLE BRACHIAL INDEX 2022-05-09 17:33:01 Gail West [facility] Gajonera VANCOMYCIN LEVEL, RANDOM 2022-05-09 16:42:00 Kenneth Farr [facility] Scooter POC GLUCOSE 2022-05-09 13:14:[address] [facility] CBC WITH PLATELET AND 2022-05-09 11:25:00 Traceedeclarence [facility] DIFFERENTIAL [facility] MAGNESIUM LEVEL 2022-05-09 11:25:00 J[facility] COMPREHENSIVE METABOLIC 2022-05-09 11:25:00 Gail West [facility] PANEL Wvjonermichael ESTIMATED GFR 2022-05-09 11:25:00 Gail West ospital [facility] MANUAL DIFFERENTIAL 2022-05-09 11:25:00 Gail West [facility] POC GLUCOSE 2022-05-09 02:55:00 Noman Brewer MRI FOOT WO CONTRAST LEFT 2022-05-09 02:37:17 Gail West [facility] POC GLUCOSE 2022-05-08 22:46:00 Noman Brewer COVID-19 QUALITATIVE 2022-05-08 22:35:00 [facility] RT-PCR Scooter XR FOOT 3+ VW LEFT 2022-05-08 19:44:29 [facility] BLOOD CULTURE, AEROBIC & 2022-05-08 19:34:00 ChikaKenneth cancino [facility] ANAEROBIC Scooter CBC WITH PLATELET AND 2022-05-08 19:34:00 [facility] DIFFERENTIAL Scooter COMPREHENSIVE METABOLIC 2022-05-08 19:34:00 [facility] PANEL Scooter C-REACTIVE PROTEIN 2022-05-08 19:34:00 [facility] SEDIMENTATION RATE 2022-05-08 19:34:00 [facility] ESTIMATED GFR 2022-05-08 19:34:00 [facility] Sc[facility] MANUAL DIFFERENTIAL 2022-05-08 19:34:00 [facility] Scooter POC GLUCOSE 2022-05-08 18:06:00 Chika Kenneth [facility] ospital Scooter POC GLUCOSE 2022-04-19 22:41:00 July García ospital CV TRANSESOPHAGEAL 2022-04-19 20:35:00 [facility] W Angel CARDIOVERSION ECG 12-LEAD 2022-04-19 20:33:57 Jaspreet [facility] POC GLUCOSE 2022-04-19 17:28:00 Nadimpalli, July [facility] POC GLUCOSE 2022-04-19 13:31:00 Nadimpalli, July [facility] CBC HEMOGRAM 2022-04-19 12:19:00 Nadimpalli, July [facility] BASIC METABOLIC PANEL 2022-04-19 12:19:00 [facility] MAGNESIUM LEVEL 2022-04-19 12:19:00 Nadimpalli, July [facility] ESTIMATED GFR 2022-04-19 12:19:00 Nadimpalli, July [facility] POC GLUCOSE 2022-04-19 10:28:00 Nadimpalli, July [facility] POC GLUCOSE 2022-04-19 06:29:00 Nadimpalli, July [facility] POC GLUCOSE 2022-04-19 02:51:00 Nadimpalli, July [facility] POC GLUCOSE 2022-04-18 22:27:00 Nadimpalli, July [facility] POC GLUCOSE 2022-04-18 17:02:00 Nadimpalli, July [facility] POC GLUCOSE 2022-04-18 13:25:00 Nadimpalli, July [facility] CBC HEMOGRAM 2022-04-18 12:36:00 Nadimpalli, July [facility] BASIC METABOLIC PANEL 2022-04-18 12:36:00 Nadericandrew, [facility] ESTIMATED GFR 2022-04-18 12:36:00 Nadimpalli, July [facility] POC GLUCOSE 2022-04-18 10:01:00 Nadimpalli, July [facility] POC GLUCOSE 2022-04-18 07:11:00 Nadimpalli, July [facility] URINE DRUGS OF ABUSE 2022-04-18 03:32:00 Win [facility] POC GLUCOSE 2022-04-18 02:35:00 Nadimpalli, July [facility] POC GLUCOSE 2022-04-17 23:00:00 Nadimpalli, July [facility] NM MYOCARDIAL PERFUSION 2022-04-17 20:04:00 Silav [facility] REST STRESS 1 DAY CV STRESS TEST NUCLEAR 2022-04-17 20:04:00 Silva [facility] CARDIO POC GLUCOSE 2022-04-17 17:10:00 Nadimpalli, July [facility] POC GLUCOSE 2022-04-17 13:48:00 Nadimpalli, July [facility] BASIC METABOLIC PANEL 2022-04-17 11:17:00 [facility] CBC HEMOGRAM 2022-04-17 11:17:00 Nadimpalli, July [facility] MAGNESIUM LEVEL 2022-04-17 11:17:00 Nadimpalli, July [facility] ESTIMATED GFR 2022-04-17 11:17:00 Nadimpalli, July [facility] POC GLUCOSE 2022-04-17 10:13:00 Nadimpalli, July [facility] POC GLUCOSE 2022-04-17 06:09:00 Nadimpalli, July [facility] POC GLUCOSE 2022-04-17 02:46:00 Nadimpalli, July [facility] POC GLUCOSE 2022-04-16 23:09:00 Nadimpalli, July [facility] POC GLUCOSE 2022-04-16 17:53:00 Nadimpalli, July [facility] POC GLUCOSE 2022-04-16 13:40:00 Nadimpalli, July [facility] POC GLUCOSE 2022-04-16 10:34:00 Nadimpalli, July [facility] CBC HEMOGRAM 2022-04-16 09:46:00 Silva [facility] BASIC METABOLIC PANEL 2022-04-16 09:46:00 [facility], [facility] PARTIAL THROMBOPLASTIN 2022-04-16 09:46:00 Silva [facility] TIME (PTT) ESTIMATED GFR 2022-04-16 09:46:00 Uriel Pastor spital POC GLUCOSE 2022-04-16 06:16:00 [facility] POC GLUCOSE 2022-04-16 02:38:00 [facility] POC GLUCOSE 2022-04-15 23:20:00 Uriel Pastor Ho spital PARTIAL THROMBOPLASTIN 2022-04-15 20:59:00 Ugelisabet [facility] TIME (PTT) POC GLUCOSE 2022-04-15 17:50:00 Uriel Pastor spital PARTIAL THROMBOPLASTIN 2022-04-15 14:26:00 Ugelisabet [facility] TIME (PTT) POC GLUCOSE 2022-04-15 13:50:00 Uriel Pastor spital CBC HEMOGRAM 2022-04-15 09:50:00 Ugelisabet [facility] HERPES SIMPLEX VIRUS BY 2022-04-15 09:50:00 Uriel Pastor [facility] PCR HIV 1/2 ANTIGEN/ANTIBODY, 2022-04-15 09:50:00 Uriel Pastor [facility] FOURTH GENERATION, WITH REFLEXES BASIC METABOLIC PANEL 2022-04-15 09:50:00 [facility] ESTIMATED GFR 2022-04-15 09:50:00 Uriel Pastor Ho spital POC GLUCOSE 2022-04-15 09:49:00 Uriel Pastor Ho spital POC GLUCOSE 2022-04-15 06:33:00 Uriel Pastor Ho spital POC GLUCOSE 2022-04-15 05:30:00 Uriel Pastor spital PARTIAL THROMBOPLASTIN 2022-04-15 05:29:00 Ugelisabet [facility] TIME (PTT) POC GLUCOSE 2022-04-15 02:07:00 Uriel Pastor Ho spital POC GLUCOSE 2022-04-14 23:24:00 Uriel Pastor spital PARTIAL THROMBOPLASTIN 2022-04-14 22:35:00 [facility] TIME (PTT) POC GLUCOSE 2022-04-14 17:22:00 Uriel Pastor spital URINALYSIS SCREEN AND 2022-04-14 17:00:00 [facility] MICROSCOPY, WITH REFLEX TO CULTURE TTE COMPLETE, W CONTRAST, 2022-04-14 16:06:00 [facility] W DOPPLER ([id number]) PARTIAL THROMBOPLASTIN 2022-04-14 15:38:00 [facility] TIME (PTT) POC GLUCOSE 2022-04-14 13:37:00 Uriel Pastor Ho spital CBC HEMOGRAM 2022-04-14 11:19:00 [facility] BASIC METABOLIC PANEL 2022-04-14 11:19:00 [facility] Efren MAGNESIUM LEVEL 2022-04-14 11:19:00 Fahad Costello ESTIMATED GFR 2022-04-14 11:19:00 Fahad Costello POC GLUCOSE 2022-04-14 10:26:00 Fahad Costello POC GLUCOSE 2022-04-14 07:01:00 Fahad Costello HEPATIC FUNCTION PANEL 2022-04-14 06:28:00 [facility] THYROID STIMULATING 2022-04-14 06:28:00 [facility] PART[facility] THROMBOPLASTIN 2022-04-14 06:28:00 [facility] TIME (PTT) Efren POC GLUCOSE 2022-04-14 01:54:00 Fahad Costello POC GLUCOSE 2022-04-14 00:05:00 Fahad Costello XR ABDOMEN 1 VW 2022-04-13 23:25:05 René Baird spital POC GLUCOSE 2022-04-13 22:54:00 aFhad Costellotal Efren ECG 12-LEAD 2022-04-13 21:50:51 Silva [facility] BETA HYDROXYBUTYRATE 2022-04-13 21:01:00 Brie, [facility] MAGNESIUM LEVEL 2022-04-13 21:01:00 Artie Bairdew [facility] ESTIMATED GFR 2022-04-13 21:01:00 B[facility] TROPONIN T 2022-04-13 21:01:00 Brie René [facility] PHOSPHORUS LEVEL 2022-04-13 21:01:00 [facility] ospital BASIC METABOLIC PANEL 2022-04-13 21:01:00 [facility] POC GLUCOSE 2022-04-13 20:54:00 Fahad Costello ospital Efren ECG 12-LEAD 2022-04-13 20:37:02 Silva [facility] TROPONIN T 2022-04-13 20:16:00 Silva [facility] POC GLUCOSE 2022-04-13 19:03:00 Fahad Costello ospital Efren POC GLUCOSE 2022-04-13 14:07:00 [facility] Efren TROPONIN T 2022-04-13 13:25:00 Silva [facility] TROPONIN T 2022-04-13 12:11:00 Silva [facility] PARTIAL THROMBOPLASTIN 2022-04-13 12:11:00 Silva [facility] TIME (PTT) PROTHROMBIN TIME WITH INR 2022-04-13 12:11:00 elisabet [facility] ANTI XA, UNFRACTIONATED 2022-04-13 12:11:00 fransisco [facility] ECG 12-LEAD 2022-04-13 11:43:39 [facility] 2022-04-13 11:41:00 [facility] POC GLUCOSE 2022-04-13 07:07:00 [facility] COVID-19 QUALITATIVE 2022-04-13 05:26:00 [facility] RT-PCR [place] POC GLUCOSE 2022-04-13 05:13:00 [facility] POC GLUCOSE 2022-04-13 04:36:[address] [facility] [address] ANGIOGRAM PE CHEST 2022-04-13 01:07:30 [facility] [place] ECG 12-LEAD 2022-04-12 22:44:44 [facility] [place] XR CHEST 1 VW PORTABLE 2022-04-12 22:03:54 [facility] [place] [facility] ED PRELIMINARY 2022-04-12 21:56:45 [facility] INTERPRETATION [place] CRITICAL CARE 2022-04-12 21:56:45 [facility] ILL/INJURED PATIENT INIT [place] 30-74 MIN CBC WITH PLATELET AND 2022-04-12 21:56:00 [facility] DIFFERENTIAL [place] COMPREHENSIVE METABOLIC 2022-04-12 21:56:00 [facility] PANEL [place] TROPONIN T 2022-04-12 21:56:00 [facility] [place] B NATRIURETIC PEPTIDE 2022-04-12 21:56:00 [facility] [place] ESTIMATED GFR 2022-04-12 21:56:00 [facility] [place] POC GLUCOSE 2022-03-14 21:43:00 Noman Brewer Ho spital POC GLUCOSE 2022-03-14 17:02:00 Noman Brewer Ho spital POC GLUCOSE 2022-03-14 13:46:00 Noman Brewer Ho spital POC GLUCOSE 2022-03-14 03:02:00 Noman Brewer Ho spital POC GLUCOSE 2022-03-13 23:33:00 Loquias, Elain [facility] POC GLUCOSE 2022-03-13 18:05:00 LoquiasNoman [facility] POC GLUCOSE 2022-03-13 13:57:00 Loquias, Noman [facility] POC GLUCOSE 2022-03-13 02:06:00 LoquiasNoman [facility] POC GLUCOSE 2022-03-12 22:33:00 Loquias, Noman [facility] POC GLUCOSE 2022-03-12 21:31:00 Loquias, Noman Faulkner Ho spital LOWER EXTREMITY 2022-03-12 20:07:00 CassidyDavin wesley Ho spital ANGIOGRAM,POSSIBLE ANGIOPLASTY,POSSIBLE STENT POC GLUCOSE 2022-03-12 15:51:00 Ana LuisaquiasNoman Ho spital CBC WITH PLATELET AND 2022-03-12 10:36:00 Ron Pizano [facility] DIFFERENTIAL BASIC METABOLIC PANEL 2022-03-12 10:36:00 Ron Pizano [facility] PROTHROMBIN TIME WITH INR 2022-03-12 10:36:00 [facility] ESTIMATED GFR 2022-03-12 10:36:[address] [facility] POC GLUCOSE 2022-03-12 02:25:00 [facility] USPV RADAMES EXTREMITY 2022-03-11 23:31:00 [facility] BILATERAL POC GLUCOSE 2022-03-11 23:16:00 [facility] POC GLUCOSE 2022-03-11 17:42:[address] [facility] POC GLUCOSE 2022-03-11 13:36:[address] [facility] CBC WITH PLATELET AND 2022-03-11 12:48:00 Ron Pizano [facility] DIFFERENTIAL COMPREHENSIVE METABOLIC 2022-03-11 12:48:[address] [facility] PANEL ESTIMATED GFR 2022-03-11 12:48:00 [facility] POC GLUCOSE 2022-03-11 02:16:[address] [facility] METHICILLIN-RESISTANT 2022-03-11 00:23:00 Laurence Abreu [facility] STAPHYLOCOCCUS AUREUS Dunreith (MRSA), LEILANI POC GLUCOSE 2022-03-10 22:58:00 [facility] VANCOMYCIN LEVEL, RANDOM 2022-03-10 20:31:00 Bridgette Hernandez [facility] POC GLUCOSE 2022-03-10 17:46:00 Harinder, [facility] POC GLUCOSE 2022-03-10 13:57:00 Harinder, [facility] CBC WITH PLATELET AND 2022-03-10 09:15:00 Harinder [facility] DIFFERENTIAL COMPREHENSIVE METABOLIC 2022-03-10 09:15:00 [facility] PANEL MAGNESIUM LEVEL 2022-03-10 09:15:00 Harinder [facility] ESTIMATED GFR 2022-03-10 09:15:00 Harinder, [facility] POC GLUCOSE 2022-03-10 02:19:00 Harinder, [facility] POC GLUCOSE 2022-03-09 22:28:00 [facility] METHICILLIN-RESISTANT 2022-03-09 18:20:00 Harinder, [facility] STAPHYLOCOCCUS AUREUS (MRSA), LEILANI POC GLUCOSE 2022-03-09 17:16:00 Harinder, [facility] POC GLUCOSE 2022-03-09 08:46:00 [facility] POC GLUCOSE 2022-03-09 07:16:00 [facility] COVID-19 QUALITATIVE 2022-03-09 07:14:00 [facility] COMPREHENSIVE METABOLIC 2022-03-09 06:10:[address] [facility] PANEL HEMOGLOBIN A1C 2022-03-09 06:10:00 Tonie-Anamaria [facility] ospital Paroginog LIPID PANEL 2022-03-09 06:10:00 [facility] Paroginog XR FOOT 3+ VW LEFT 2022-03-09 05:56:37 [facility] BETA HYDROXYBUTYRATE 2022-03-09 05:43:00 Arnulfo [facility] CBC WITH PLATELET AND 2022-03-09 05:35:00 [facility] DIFFERENTIAL LACTIC ACID LEVEL, SEPSIS 2022-03-09 05:35:00 Arnulfo Laxmi [facility] - NOW AND REPEAT 2X EVERY 3 HOURS VENOUS BLOOD GAS 2022-03-09 05:35:00 Arnulfo [facility] ESTIMATED GFR 2022-03-09 05:35:00 [facility] POC GLUCOSE 2022-03-09 03:55:00 Provider, Yvnone [facility] POC GLUCOSE 2021-12-14 16:15:00 René De Jesus nora Arredondo POC GLUCOSE 2021-12-14 12:10:00 René De Jesus nora Arredondo POC GLUCOSE 2021-12-14 01:40:00 René De Jesus nora Arredondo POC GLUCOSE 2021-12-13 21:17:[address] [facility] POC GLUCOSE 2021-12-13 16:05:[address] [facility] POC GLUCOSE 2021-12-13 12:22:[address] [facility] POC GLUCOSE 2021-12-13 01:36:00 René De Jesus nora Arredondo POC GLUCOSE 2021-12-12 22:00:[address] [facility] VENIPUNC NEED PHYS 2021-12-12 17:56:[address] [facility] SKILL,DX OR RX POC GLUCOSE 2021-12-12 16:34:[address] [facility] POC GLUCOSE 2021-12-12 12:27:[address] [facility] BASIC METABOLIC PANEL 2021-12-12 10:55:00 René De Jesus [facility] Arnulfo CBC WITH PLATELET AND 2021-12-12 10:55:00 [facility] DIFFERENTIAL Arnulfo ESTIMATED GFR 2021-12-12 10:55:00 René De Jesus [facility] Arnulfo ZZCOVID-19 ANTI-SPIKE IGG 2021-12-12 10:54:00 [facility] ANTIBODY TITER Harjinder ROMAND-19 SEROLOGY 2021-12-12 10:54:00 Sae [facility] PATIENT SURVEILLANCE Harjinder POC GLUCOSE 2021-12-12 03:38:00 [facility] POC [facility]SE 2021-12-12 01:22:00 [facility]é [facility] [place] POC GLUCOSE 2021-12-11 22:32:00 René De Jesus [facility] [place] POC GLUCOSE 2021-12-11 17:04:00 René De Jesus [facility] 2021-12-11 13:53:00 René De Jesus [facility] POC GLUCOSE 2021-12-11 08:48:00 [facility] POC GLUCOSE 2021-12-11 07:29:00 [facility] POC GLUCOSE 2021-12-11 06:36:00 [facility] COVID-19 QUALITATIVE 2021-12-11 05:55:00 Wilberto Carbajal [facility] RT-PCR POC GLUCOSE 2021-12-11 05:34:00 [facility] CBC WITH PLATELET AND 2021-12-11 04:02:00 Wilberto Carbajal [facility] DIFFERENTIAL COMPREHENSIVE METABOLIC 2021-12-11 04:02:00 Solomon [facility] PANEL LIPASE LEVEL 2021-12-11 04:02:00 [facility] BETA HYDROXYBUTYRATE 2021-12-11 04:02:00 Wilberto Carbajal [facility] VENOUS BLOOD GAS 2021-12-11 04:02:00 Wilberto Carbajal [facility] ESTIMATED GFR 2021-12-11 04:02:00 [facility] ABDOMEN PELVIS WO 2021-12-11 02:47:59 Wilberto Carbajal [facility] CONTRAST URINE CULTURE 2021-12-11 02:24:00 Og Cleaning spital URINALYSIS SCREEN AND 2021-12-11 01:10:00 Wilberto Carbajal [facility] MICROSCOPY, WITH REFLEX TO CULTURE URINE CULTURE 2021-11-08 17:34:00 Thong Cartagena spital URINALYSIS SCREEN AND 2021-11-08 16:54:00 [facility], WITH REFLEX TO CULTURE CT RENAL STONE PROTOCOL 2021-11-08 16:35:[address] [facility] CBC WITH PLATELET AND 2021-11-08 16:05:00 [facility] DIFFERENTIAL BASIC METABOLIC PANEL 2021-11-08 16:05:00 [facility] LIPASE LEVEL 2021-11-08 16:05:00 [facility] HEPATIC FUNCTION PANEL 2021-11-08 16:05:00 [facility] ESTIMATED GFR 2021-11-08 16:05:00 [facility] POC GLUCOSE 2021-11-08 15:52:00 Phan Cartagenahen [facility] ECG ED PRELIMINARY 2021-10-11 04:49:00 [facility] ECG 12-LEAD 2021-10-11 03:14:36 [facility] CBC WITH PLATELET AND 2021-10-11 02:57:00 [facility] DIFFERENTIAL COMPREHENSIVE METABOLIC 2021-10-11 02:57:00 [facility] PANEL TROPONIN T 2021-10-11 02:57:00 [facility] B NATRIURETIC PEPTIDE 2021-10-11 02:57:00 Yannick [facility] PROTHROMBIN TIME WITH INR 2021-10-11 02:57:[address] [facility] PARTIAL THROMBOPLASTIN 2021-10-11 02:57:00 [facility] (PTT[facility] ESTIMATED GFR 2021-10-11 02:57:00 [facility] CHEST 2 VW 2021-10-11 02:05:13 [facility] DIABETIC FOOT EXAMINATION 2021-06-29 00:00:00 Garcia, Branch [id number]. (2028F) 2 MOST RECENT DIASTOLIC 2021-06-29 00:00:00 Garcia, Branch 2.16.8 [id number]. BLOOD PRESSURE 80-89 MM 2 HG (HTN, CKD, CAD) (DM) (3079F) MOST RECENT SYSTOLIC 2021-06-29 00:00:00 Garcia, Branch 2.16.84 [id number]. BLOOD PRESSURE 130-139 MM 2 HG (DM),(HTN, CKD, CAD) (3075F) NEGATIVE SCREEN FOR 2021-06-29 00:00:00 Garcia, Branch [id number]. CLINICAL DEPRESSION, 2 FOLLOW-UP NOT REQUIRED (G8510) PATIENT IDENTIFIED A 2021-06-29 00:00:00 Garcia, Branch [id number]. TOBACCO USER RECEIVED 2 TOBACCO CESSATION INTERVENTION (COUNSELING AND/OR PHARMACOTHERAPY) (G9906) SCREENING FOR TOBACCO USE 2021-06-29 00:00:00 Garcia, Branch [id number]. (4004F) 2 PATIENT SCREENED FOR 2021-06-29 00:00:00 Garcia, Branch 2.16.84 [id number]. TOBACCO USE AND 2 IDENTIFIED A TOBACCO USER ([id number]) XRAY FOOT 3 VIEWS - 2021-02-02 15:18:00 Jamin Lopez [facility] ROUTINE CBC/DIFF 2021-02-02 15:12:00 Jamin Lopez alth BASIC METABOLIC PANEL 2021-02-02 15:12:00 Jamin Lopez [facility] CBC 2021-02-02 15:12:00 Jamin Lopez alth URINE CULTURE 2021-01-03 04:26:00 [facility] Richard URINALYSIS SCREEN AND 2021-01-03 04:26:00 [facility] MICROSCOPY, WITH REFLEX Richard TO CULTURE LACTIC ACID LEVEL, SEPSIS 2021-01-03 03:04:00 [facility] AND [facility]AT [facility]X EVERY [place] 3 HOURS TROPONIN 2021-01-03 03:04:00 [facility] US DUPLEX VENOUS LOWER 2021-01-03 01:53:13 [facility] EXTREMITY RIGHT Richard ECG ED PRELIMINARY 2021-01-03 01:17:47 [facility] [place] XR TIBIA FIBULA 2 VW 2021-01-03 01:05:[facility] Richard [facility] FOOT 3+ VW LEFT 2021-01-03 01:05[facility]05 [facility]AD 2021-01-03 00:52:38 [facility] BLOOD CULTURE, AEROBIC & 2021-01-03 00:47:00 [facility] ANAEROBIC Richard BLOOD CULTURE, AEROBIC & 2021-01-03 00:45:00 [facility] ANAEROBIC [place] [facility] COMPLETE BLD COUNT 2021-01-03 00:43:00 [facility] W/AUTO DIFF Richard BASIC METABOLIC PANEL 2021-01-03 00:43:00 [facility] HEPATIC FUNCTION PANEL 2021-01-03 00:43:00 [facility] LACTIC ACID LEVEL, SEPSIS 2021-01-03 00:43:00 [facility] AND REPEAT 2X EVERY [place] 3 HOURS LIPASE LEVEL 2021-01-03 00:43:00 [facility] TROPONIN 2021-01-03 00:43:00 [facility] B NATRIURETIC PEPTIDE 2021-01-03 00:43:00 [facility] ESTIMATED GFR 2021-01-03 00:43:00 [facility] Amputation 2020-08-04 00:00:00 [facility] 2.16.840.1.1 55424.4. 2 [id number] 2020-07-04 00:00:00 DAVJO.04 [facility] [id number] 2020-07-04 00:00:00 DAVJO.04 [facility] [id number] 2020-07-04 00:00:00 DAVJO.04 [facility] [id number] 2020-07-04 00:00:00 DAVJO.04 [facility] [id number] 2020-07-04 00:00:00 DAVJO.04 [facility] [id number] 2020-07-04 00:00:00 DAVJO.04 [facility] [id number] 2020-07-04 00:00:00 DAVJO.04 [facility] [id number] 2020-07-04 00:00:00 DAVJO.04 [facility] [id number] 2020-07-01 00:00:00 CRISTIANO [facility] [id number] 2020-07-01 00:00:00 CRISTIANO [facility] [id number] 2020-07-01 00:00:00 CRISTIANO [facility] [id number] 2020-07-01 00:00:00 [facility] Annual Eye Exam - FOR [facility] 2.16.840.1 .[id number]. NON-DIABETICS ONLY 2 COLONOSCOPY IN ADULT [facility] 2.16.840.1. 240036.4. (75268) 2 Patient received annual [facility] 2.16.840 .1.940864.4. dental check-up 2 Teeth [facility] [id number] 3.4. 2 Plan of Care Planned Activity [...] Influenza Seasonal (>/= 19 yrs)] Future Scheduled 2022-09-26 [facility] Test 01:58:19 malignant neoplasm of colon (procedure) [code = 215944340] Future Scheduled 2022-09-26 [facility] Test 01:58:19 malignant neoplasm of colon (procedure) [code = 157927101] Future Scheduled 2022-09-26 [facility] Test 01:58:19 malignant neoplasm of colon (procedure) [code = 292548648] Future Scheduled 2022-09-26 COVID-19 VACCINE (#1) [facility] Test 01:58:19 [code = COVID-19 VACCINE (#1)] Future Scheduled 2022-09-26 DIABETES: RETINAL EYE [facility] Test 01:58:19 EXAM [code = DIABETES: RETINAL EYE EXAM] Future Scheduled 2022-09-26 DIABETIC FOOT EXAM [facility] Test 01:58:19 [code = DIABETIC FOOT EXAM] Future Scheduled 2022-09-26 URINE [facility]ALBUMIN [facility] Test 01:58:19 [code = URINE MICROALBUMIN] Future Scheduled 2022-09-26 Hepatitis C screening [facility] Test 01:58:19 (procedure) [code = 117787592] Future Scheduled 2022-09-26 [facility] Test 01:58:19 malignant neoplasm of colon (procedure) [code = 694679135] Future Scheduled 2022-09-26 [facility] Test 01:58:19 malignant neoplasm of colon (procedure) [code = 898097274] Future Scheduled 2022-09-26 [facility] Test 01:58:19 malignant neoplasm of lung (procedure) [code = 807951341] Future Scheduled 2022-09-26 [facility]INGLES VACCINES ([facility] 01:58:19 of 2) [code = SHINGLES VACCINES (1 of 2)] Future Scheduled 2022-09-26 INFLUENZA VACCINE [facility] 01:58:19 [code = INFLUENZA VACCINE] Future Scheduled 2022-09-19 COVID-19 [facility] (#[facility] 11:07:21 [code = COVID-19 VACCINE (#1)] Future Scheduled 2022-09-19 DIABETES: RETINAL EYE [facility] 11:07:21 EXAM [code = DIABETES: RETINAL EYE EXAM] Future Scheduled 2022-09-19 DIABETIC FOOT [facility]AM [facility] Test 11:07:21 [code = DIABETIC FOOT EXAM] Future Scheduled 2022-09-19 URINE [facility]ALBUMIN [facility] Test 11:07:21 [code = URINE MICROALBUMIN] Future Scheduled 2022-09-19 [facility] Test 11:07:21 (procedure) [code = 333250912] Future Scheduled 2022-09-19 [facility] Test 11:07:21 malignant neoplasm of colon (procedure) [code = 741019985] Future Scheduled 2022-09-19 [facility] Test 11:07:21 malignant neoplasm of lung (procedure) [code = 623618667] Future Scheduled 2022-09-19 SHINGLES VACCINES (1 [facility] 11:07:21 of 2) [code = SHINGLES VACCINES (1 of 2)] Future Scheduled 2022-09-19 INFLUENZA VACCINE [facility] 11:07:21 [code = INFLUENZA VACCINE] Future Scheduled 2022-08-19 COVID-19 VACCINE (#1) [facility] Test 10:24:38 [code = COVID-19 VACCINE (#1)] Future Scheduled 2022-08-19 DIABETES: RETINAL EYE [facility] 10:24:38 EXAM [code = DIABETES: RETINAL EYE EXAM] Future Scheduled 2022-08-19 DIABETIC FOOT EXAM [facility] Test 10:24:38 [code = DIABETIC FOOT EXAM] Future Scheduled 2022-08-19 [facility]INE [facility]AL[facility]UMIN [facility] Test 10:24:38 [code = URINE MICROALBUMIN] Future Scheduled 2022-08-19 [facility] Test 10:24:38 (procedure) [code = 749777786] Future Scheduled 2022-08-19 COLONOSCOPY SCREENING [facility] Test 10:24:38 [code = COLONOSCOPY SCREENING] Future Scheduled 2022-08-19 [facility] Test 10:24:38 malignant neoplasm of lung (procedure) [code = 278206135] Future Scheduled 2022-08-19 SHINGLES VACCINES (1 [facility] Test 10:24:38 of 2) [code = SHINGLES VACCINES (1 of 2)] Future Scheduled 2022-08-19 INFLUENZA VACCINE [facility] Test 10:24:38 [code = INFLUENZA VACCINE] Future Scheduled 2022-08-19 COVID-19 VACCINE (#1) [facility] 10:24:38 [code = COVID-19 VACCINE (#1)] Future Scheduled 2022-08-19 DIABETES: RETINAL EYE [facility] Test 10:24:38 EXAM [code = DIABETES: RETINAL EYE EXAM] Future Scheduled 2022-08-19 DIABETIC FOOT EXAM [facility] Test 10:24:38 [code = DIABETIC FOOT EXAM] Future Scheduled 2022-08-19 URINE [facility]ALBUMIN [facility] Test 10:24:38 [code = URINE MICROALBUMIN] Future Scheduled 2022-08-19 Hepatitis C screening [facility] Test 10:24:38 (procedure) [code = 320590964] Future Scheduled 2022-08-19 COLONOSCOPY SCREENING [facility] Test 10:24:38 [code = COLONOSCOPY SCREENING] Future Scheduled 2022-08-19 [facility] 10:24:38 malignant neoplasm of lung (procedure) [code = 303584413] Future Scheduled 2022-08-19 SHINGLES VACCINES (1 [facility] Test 10:24:38 of 2) [code = [...] Future Scheduled 2022-08-19 Hepatitis C screening [facility] Test 10:24:38 (procedure) [code = 482579460] Future Scheduled 2022-08-19 COLONOSCOPY SCREENING [facility] Test 10:24:38 [code = COLONOSCOPY SCREENING] Future Scheduled 2022-08-19 [facility] 10:24:38 malignant neoplasm of lung (procedure) [code = 810174317] Future Scheduled 2022-08-19 SHINGLES VACCINES (1 [facility] Test 10:24:38 of 2) [code = SHINGLES VACCINES (1 of 2)] Future Scheduled 2022-08-19 INFLUENZA VACCINE [facility] Test 10:24:38 [code = INFLUENZA VACCINE] Future Scheduled 2022-08-19 COVID-19 VACCINE (#1) [facility] Test 10:24:38 [code = COVID-19 VACCINE (#1)] Future Scheduled 2022-08-19 DIABETES: RETINAL EYE [facility] Test 10:24:38 EXAM [code = DIABETES: RETINAL EYE EXAM] Future Scheduled 2022-08-19 DIABETIC FOOT EXAM [facility] Hospital Test 10:24:38 [code = DIABETIC FOOT EXAM] Future Scheduled 2022-08-19 URINE [facility]ALBUMIN [facility] Test 10:24:38 [code = URINE MICROALBUMIN] Future Scheduled 2022-08-19 Hepatitis C screening [facility] Test 10:24:38 (procedure) [code = 302754572] Future Scheduled 2022-08-19 COLONOSCOPY SCREENING [facility] Test 10:24:38 [code = COLONOSCOPY SCREENING] Future Scheduled 2022-08-19 [facility] 10:24:38 malignant neoplasm of lung (procedure) [code = 790604639] Future Scheduled 2022-08-19 SHINGLES VACCINES (1 [facility] Test 10:24:38 of 2) [code = SHINGLES VACCINES (1 of 2)] Future Scheduled 2022-08-19 INFLUENZA VACCINE [facility] Test 10:24:38 [code = INFLUENZA VACCINE] Future Scheduled 2022-01-19 IMM Influenza Seasonal [facility] 00:00:00 (>/= 19 yrs) [code = IMM Influenza Seasonal (>/= 19 yrs)] Future Scheduled 2022-01-19 IMM Influenza Seasonal H [facility] Test 00:00:00 (>/= 19 yrs) [code = IMM Influenza Seasonal (>/= 19 yrs)] Future Scheduled 2021-12-17 HEPATITIS B VACCINES Met [facility] Test 10:00:08 (1 of 3 - 3-dose series) [code = HEPATITIS B VACCINES (1 of 3 - 3-dose series)] Future Scheduled 2021-12-17 COVID-19 VACCINE (#1) [facility] Test 10:00:08 [code = COVID-19 VACCINE (#1)] Future Scheduled 2021-12-17 Pneumococcal Vaccine: [facility] Test 10:00:08 Pediatrics (0 to 5 Years) and At-Risk Patients (6 to 64 Years) (1 - PCV) [code = Pneumococcal Vaccine: Pediatrics (0 to 5 Years) and At-Risk Patients (6 to 64 Years) (1 - PCV)] Future Scheduled 2021-12-17 Hepatitis C screening [facility] Test 10:00:08 (procedure) [code = 148073280] Future Scheduled 2021-12-17 COLONOSCOPY SCREENING [facility] Test 10:00:08 [code = COLONOSCOPY SCREENING] Future Scheduled 2021-12-17 SHINGLES VACCINES (1 Met [facility] Test 10:00:08 of 2) [code = SHINGLES VACCINES (1 of 2)] Future Scheduled 2021-12-17 INFLUENZA VACCINE Method [facility] Hospital Test 10:00:08 [code = INFLUENZA VACCINE] Future Scheduled 2021-12-17 HEPATITIS B VACCINES Met [facility] Test 10:00:08 (1 of 3 - 3-dose series) [code = HEPATITIS B VACCINES (1 of 3 - 3-dose series)] Future Scheduled 2021-12-17 COVID-19 VACCINE (#1) [facility] Test 10:00:08 [code = COVID-19 VACCINE (#1)] Future Scheduled 2021-12-17 Pneumococcal Vaccine: [facility] Test 10:00:08 Pediatrics (0 to 5 Years) and At-Risk Patients (6 to 64 Years) (1 - PCV) [code = Pneumococcal Vaccine: Pediatrics (0 to 5 Years) and At-Risk Patients (6 to 64 Years) (1 - PCV)] Future Scheduled 2021-12-17 Hepatitis C screening [facility] Test 10:00:08 (procedure) [code = 485347215] Future Scheduled 2021-12-17 COLONOSCOPY SCREENING [facility] Test 10:00:08 [code = COLONOSCOPY SCREENING] Future Scheduled 2021-12-17 SHINGLES VACCINES (1 [facility] Test 10:00:08 of 2) [code = SHINGLES VACCINES (1 of 2)] Future Scheduled 2021-12-17 INFLUENZA VACCINE [facility] Test 10:00:08 [code = INFLUENZA VACCINE] Diagnostic Test 2021-06-29 HEMOGLOBIN GLYCLATED Pending 14:06:03 (HGB A1C) (62929) [code = 02680] Diagnostic Test 2021-06-29 CBC & PLATELETS (AUTO) Pending 14:05:14 (82886) [code = 72392] Diagnostic Test 2021-06-29 MICROALBUMIN/CREAT. Pending 13:35:45 RATIO WITH CREATININE (ALONDRA URINE) (50133) [code = 87364] Diagnostic Test 2021-06-29 LIPID PANEL (12913) Pending 13:35:39 [code = 58342] Diagnostic Test 2021-06-29 COMPREHENSIVE Pending 13:35:39 METABOLIC PANEL (15932) [code = 73229] Future Scheduled 2017 [facility] Test 00:00:00 malignant neoplasm of colon (procedure) [code = 404030509] Future Scheduled 2017 [facility] Test 00:00:00 malignant neoplasm of colon (procedure) [code = 056563675] Future Scheduled 2017 [facility] Test 00:00:00 malignant neoplasm of colon (procedure) [code = 415522760] Future Scheduled 2017 [facility] Test 00:00:00 malignant neoplasm of colon (procedure) [code = 275504744] Future Scheduled 2017 [facility] Test 00:00:00 malignant neoplasm of colon (procedure) [code = 304854606] Future Scheduled 2017 [facility] Test 00:00:00 malignant neoplasm of colon (procedure) [code = 506523886] Future Scheduled 2017 [facility] Test 00:00:00 malignant neoplasm of colon (procedure) [code = 324558842] Future Scheduled 1985 Diabetic foot [facility] Test 00:00:00 examination (regime/therapy) [code = 641584744] Future Scheduled 1985 [facility] Test 00:00:00 protein (procedure) [code = 531297204] Future Scheduled 1985 DM Retinal Exam [facility] Test 00:00:00 (Yearly) [code = DM Retinal Exam (Yearly)] Future Scheduled 1985 DM Foot Exam (Yearly) [facility] Test 00:00:00 [code = DM Foot Exam (Yearly)] Future Scheduled 1985 U[facility] Test 00:00:00 protein (procedure) [code = 187810658] Future Scheduled 1985 DM [facility] Test 00:00:00 (Yearly) [code = DM Retinal Exam (Yearly)] Future Scheduled 1985 DM Foot Exam (Yearly) [facility] Test 00:00:00 [code = DM Foot Exam (Yearly)] Future Scheduled 1985 U[facility] Test 00:00:00 protein (procedure) [code = 420671965] Future Scheduled 1985 [facility] 00:00:00 (Yearly) [code = DM Retinal Exam (Yearly)] Future Scheduled 1985 [facility] Test 00:00:00 examination (regime/therapy) [code = 382490325] Future Scheduled 1985 U[facility] Test 00:00:00 protein (procedure) [code = 523013129] Future Scheduled 1985 [facility] Test 00:00:00 (Yearly) [code = DM Retinal Exam (Yearly)] Future Scheduled 1985 [facility] Test 00:00:00 examination (regime/therapy) [code = 398231030] Future Scheduled 1985 [facility] Test 00:00:00 protein (procedure) [code = 359568163] Future Scheduled 1985 DM [facility] 00:00:00 (Yearly) [code = DM Retinal Exam (Yearly)] Future Scheduled 1985 [facility] Test 00:00:00 examination (regime/therapy) [code = 194893401] Future Scheduled 1985 U[facility] Test 00:00:00 protein (procedure) [code = 319144605] Future Scheduled 1985 DM [facility] 00:00:00 (Yearly) [code = DM Retinal Exam (Yearly)] Future Scheduled 1985 [facility] Test 00:00:00 examination (regime/therapy) [code = 657485732] Future Scheduled 1985 [facility] Test 00:00:00 protein (procedure) [code = 043069834] Future Scheduled 1985 DM Retinal Exam [facility] [...] = COVID-19 Vaccine (#1)] Future Scheduled 1967 Fluoride Varnish [code [facility] 00:00:00 = Fluoride Varnish] Future Scheduled 1967 Hem[facility] A1c [facility] 00:00:00 measurement (procedure) [code = 44559463] Future Scheduled 1967 [facility] A1c [facility] 00:00:00 measurement (procedure) [code = 73440363] Future Scheduled 1967 [facility] A1c [facility] 00:00:00 measurement (procedure) [code = 31278273] Future Scheduled 1967 [facility]oglobin A1c [facility] 00:00:00 measurement (procedure) [code = 18267410] Future Scheduled 1967 [facility] A1c [facility] 00:00:00 measurement (procedure) [code = 90014164] Future Scheduled 1967 [facility] A1c [facility] 00:00:00 measurement (procedure) [code = 92063680] Future Scheduled 1967 Fluoride Varnish [code [facility] 00:00:00 = Fluoride Varnish] Future Scheduled 1967 Hemoglobin A1c [facility] Test 00:00:00 measurement (procedure) [code = 46253155] Encounters Start End Encounter Admission Attending Care Care Encounter Source Date/Time Date/Time Type Type Clinicians Facility Department ID 2022-09-26 Outpatient [id number] 2C28-B [facility] 22:55:52 BDD8-45A9 D8-52X8-R23 DD8-45A9- A l -U20G-772 C-4373U4V7Y 65C-0738A6 [facility] [id number] 9CA A9E9CA 2022-09-23 Outpatient [id number] 9A1A 7215-2 [facility] 15:40:06 39T4-1334 D4-4114-817 2C3-2172- 8 l -8170-0E7 0-8A72137W8 170-0W5814 [facility] [id number] 1C5 7F51C5 2022-09-18 Outpatient [id number]- [id number] B36D ED90-5 [facility] 10:27:41 541D-469D 1D-469D-BD0 41D-469D- B l -XK39-00N 8-55R6VO584 G29-58A9IK [facility] [id number] 07A 78255U 2022-09-05 [facility] [id number]- 79958JL0-33 2321 5DA0-4 [facility] 19:47:40 4550-4F68 50-8H30-6WF 550-4F68- 9 l -9EA2-H88 8-M184L5VZ8 EF8-C365D8 [facility] 7P9TZ5V01 C31 EA8C31 2022-08-22 Outpatient [id number]- 990BP5SW-KH 040A D3FD-E [facility] 13:17:42 EEDC-4D67 DC-1H33-U7Z EDC-4D67- B l -I5G5-CE6 8-IF5358430 6F6-AV4536 [facility] [id number] [id number] 3025-05-01 Outpatient [id number]- 87973D61-[id number] 2664 7F96-A [facility] 10:26:06 W6X7-0C22 D0-9W19-WA9 9D0-6H65- B l -AZ4K-J34 D-F10J422N3 G7T-M40E08 [facility] [id number] 284 [id number] 2022-07-01 Outpatient [id number]- 61LC46F4-2A 52CB 02A8-1 [facility] 18:22:57 7S74-5V4T 86-6A7C-A9V K20-8K8M- A l -W2HJ-785 F-987L289HO 7DF-972C65 [facility] [id number] 841 9OP858 2022-06-25 Outpatient R374MT2X- S046ZW1H-44 C555 AD3A-6 [facility] 13:13:28 6801-408F 01-408F-9CD 801-408F- 9 l -8DL8-8V2 5-8D37S3174 CD5-9B11D0 [facility] 8M7163VJU CAF 333CAF 2022-06-21 Outpatient [id number]- [id number] 2314 01CA-8 [facility] 16:24:21 8273-427F 73-427F-927 273-427F- 9 l -9279-910 9-7543193LS 279-168900 [facility] 6053PJ92L 00D 8DD00D 2022-05-10 Outpatient [id number] 9P8GZ625-C9 2E9D D710-A [facility] 06:40:42 O41I-12C3 5F-22C6-83A 65F-48A2- 9 l -44I1-3M6 9-6H571OTLD 8R5-3I075P u[facility] 85SBFT465 329 EPL300 2022-05-08 Outpatient BJA2BMT5- VLJ6LVI7-28 BEF6 CBA3-5 [facility] 15:37:53 503B-4880 3B-4880-9B6 03B-4880- 9 l -3L3F-0YR D-9VBE15660 O1G-6MJP09 [facility] [id number] C18 509C18 2022-04-19 Outpatient 5MCS0N2S- 3NDS8D9D-91 1BBB 5C0D-8 [facility] 13:59:31 41Z5-3793 F1-4973-998 1O1-3976- 9 l -998B-F76 B-U98823718 98B-Z21523 [facility] [id number] 9024-12-28 Outpatient 17HPI89Q- 88PLX68W-RY 79BE F91E-D [facility] 13:31:43 DAD3-4873 D3-4873-877 AD3-4873- 8 l -8771-2E6 1-5Z6K529Z3 771-2E6E91 [facility] Q090E7861 342 0S2785 2022-04-13 Outpatient 1319W2X8- 1206U6E8-82 4505 A0B3-1 [facility] 15:36:01 15FB-4C6B FB-2O0X-W15 5FB-4C6B- A l -F42Y-P40 B-A11E8D603 59B-D42D0C [facility] J1O816P0F A6F 833A6F 2022-04-12 Outpatient 69O2JKJ1- 56D7VHL7-6S 06B9 BCB5-0 [facility] 15:30:39 6F13-4DI0 07-3ON4-381 Q55-8GY5- 9 l -9202-AD6 2-PY84C56RL 202-AD61D6 [facility] 8L76NYS42 A84 7EAA84 2022-03-11 Outpatient 222C8IH0- 343E8JG8-69 938D 5EE5-8 [facility] 19:30:21 857A-4A82 7A-9L95-O8M 57A-4A82- B l -W7T1-8F7 5-3A06610CK 4X0-9L7690 [facility] [id number] 155 4VA412 2022-03-08 Outpatient [id number]- [id number] 3A45 0898-9 [facility] 21:44:29 9339-4C22 39-1S45-E43 339-4C22- A l -U30O-32O E-95I07NBJZ 45E-85D07A [facility] 19WXLL087 545 OHD940 2022-01-04 Outpatient 3YBA2ZSJ- 3YID1CNV-6A 9DDA 6CAA-4 [facility] 07:00:32 0D75-6703 77-4012-BA3 F74-1849- B l -NQ37-B84 9-W76CPHEH8 B54-H05PGL [place] QVYFH5TZ0 CD2 AD3CD2 2021-12-31 Outpatient [id number] 510976X0-K0 3447 38E1-B [facility] 12:10:15 V6M4-232F E1-485D-91D 7R1-759X- 9 l -48D9-C17 [id number]-[id number] 6E5-C73015 [facility] 017989ZL1 AC5 327AC5 2021-10-07 Inpatient Roa, HCABM HCABM [id number] [facility] 06:58:00 Jerry [id number] [facility] 2021-07-14 Outpatient [facility] [id number] [place] 04:59:20 [id number] [facility] 2021-06-28 Outpatient [facility] [id number] [place] 15:37:52 [facility] 2021-06-15 [facility] [id number] [place] 11:20:44 [id number] [facility] 2021-03-30 Outpatient [id number]- 6150DG59-2R 9110 FB25-7 [facility] 23:09:22 9C00-716T 85-469A-9A5 T31-880S- 9 l -0L1L-D28 B-W3463H624 O7G-I6153Q [place] 09R692M46 B38 918B38 2020-06-30 Inpatient HCAKW HCAKW [id number] [facility] 09:04:59 17 [facility] 2020-02-27 Inpatient HCACR AMA [id number] [facility] 13:37:00 01 [facility] 2019-10-08 Inpatient HCABM NCER [id number] [facility] 12:23:00 18 [facility] 2022-12-03 2022-12-03 Outpatient R JULIANN [facility] [id number] [facility] 08:00:00 08:00:00 [facility] 2022-11-06 2022-11-06 Outpatient R RAMÓN KRAFT [facility] [id number] Univers 13:30:00 13:30:00 RAMÓN KRAFT [facility] 2022-09-20 2022-09-20 Outpatient R JULIANN [facility] [id number] Univers 13:00:00 13:00:00 [facility] 2022-09-18 2022-09-18 Telephone [facility] [id number] Univers 00:00:00 00:00:00 Alexandra CHAMBERS 350.1.13.10 i [id number] [address] 2022-09-18 2022-09-18 [facility] [id number] Univers 00:00:00 00:00:00 Alexandra [place]AM[place] 350.1.13.10 [place] ty [place] [phone] Fl dic[address] 2022-09-17 2022-09-17 Telephone [facility] 1.2.840.114 [id number] Univers 00:00:00 00:00:00 Jeni [place] 350.1.13.10 i ty [facility] 4[place]2.[place].2.[place] [phone] Fl dical NAL 204 [facility] 2022-09-13 2022-09-13 Outpatient R [facility] [id number] Univers 11:00:00 11:00:00 ity of [facility] 2022-09-13 2022-09-13 Telephone [facility] [place] 1.2.840.114 [id number] Univers 00:00:00 00:00:00 Ramón CHAMBERS 350.1.13.10 it[place] [phone] Fl dical NAL 044 [facility] 2022-09-13 2022-09-13 Telephone [facility] 1.2.840.114 [id number] Univers 00:00:00 00:00:00 Jeni CHAMBERS 350.1.13.10 i ty [place] [id number] [facility] 204 [facility] 2022-09-12 2022-09-12 Emergency [facility] 1.2.840.114 [id number] Univers 21:33:00 22:56:00 Hui CH[place] 350.1.13.10 ity [address] [facility] 4[place]7.2.[place] [phone] [facility] [address] [place] 2022-09-12 2022-09-12 Hospital [facility] 1.2.840.114 [id number] Univers 15:07:02 21:32:00 Encounter Alexandra CHAMBERS 350.1.13.10 ity of [facility] [place] [address] [address] [phone] [facility] [address] 2022-09-12 2022-09-12 Steam Flattener 2, Adc Lab [facility] 1.2.840.114 [id number] Univers 15:30:00 15:45:00 Visit Alexandra Finnegan 350.1.13.10 ity of [facility] [place].2.[place].2.[place] [phone] Fl dical NAL 353 [facility] 2022-09-12 2022-09-12 Outpatient R KAIN [facility] [id number] Univers 13:30:00 14:26:44 ALEXANDRA itgrant [facility] 2022-09-12 2022-09-12 Outpatient [facility] E[facility] [id number] Univers 13:30:00 14:26:44 ALEXANDRA ity [facility] 2022-09-12 2022-09-12 Office [facility] 1.2.840.114 [id number] 732 Univers 13:30:00 14:26:44 Visit Alexandra TRISH 350.1.13.10 i ty of [facility] 4.2.[place].2.[place] [phone] Fl dical NAL 044 [facility] 2022-09-12 2022-09-12 Telephone [facility] 1.2.434.483 2659 18897 Univers 00:00:00 00:00:00 Alexandra MANCINIHUNG 350.1.13.10 i ty of [facility] 4.2.[place].2.[place] [phone] Fl dical NAL 044 [facility] 2022-09-12 2022-09-12 Telephone [facility] 1.2.545.271 2980 99216 Univers 00:00:00 00:00:00 Alexandra CHAMBERS 350.1.13.10 i ty of [facility] 4.2.7.2.[place] [phone] Fl dical NAL 044 [facility] 2022-09-11 2022-09-11 Telephone [facility] 1.2.840.114 103 [id number] Univers 00:00:00 00:00:00 Ramón CHAMBERS 350.1.13.10 ity of [facility] 4.2.[place] [phone] Fl dical NAL 044 [facility] 2022-09-10 2022-09-10 Outpatient R JULIANN [facility] [id number] Univers 10:30:00 11:36:35 JENI ity of [facility] 2022-09-06 2022-09-06 Telephone Abena [facility] 1.2.840.114 103 [id number] Univers 00:00:00 00:00:00 Ogledyukwu [place] 350.1.13.10 ity of [place] [phone] Fl dical NAL 044 [facility] 2022-09-06 2022-09-06 [facility] 1.2.840.114 103 [id number] Univers 00:00:00 00:00:00 Ogbasiliou [place] 350.1.13.10 ity of [place] 4[place].2.[place] [phone] Fl dical NAL 044 [facility] 2022-09-05 2022-09-05 Refill Abena [facility] 1.2.840.114 19263 1334 Univers 00:00:00 00:00:00 Ogbasiliou [place] 350.1.13.10 ity of [place] 4[place].7.2.[place] [phone] Fl dical [facility] 044 [facility] 2022-09-04 2022-09-04 Patient Bao [facility] 1.2.840.114 [id number] Univers 00:00:00 00:00:00 Outreach Mari CHAMBERS 350.1.13.10 ity of [place] 4[place]2.7.2.[place] [phone] Fl dical NAL 231 [facility] 2022-09-04 2022-09-04 Orders Doctor GILBERT 1.2.840.114 [id number] Univers 00:00:00 00:00:00 Only Unassigned, BRANDEE 350.1.13.10 ity of [place] [facility] 4.2.7.2.686 Suhas as [phone] [address] 2022-09-02 2022-09-02 Telephone Abena [facility] 1.2.840.114 103 [id number] Univers 00:00:00 00:00:00 Ogbasiliou [place] 350.1.13.10 ity of [place] 4[place].7.2.[place] [phone] Fl dical NAL 044 [facility] 2022-08-30 2022-08-30 Telephone Abena, [facility] 1.2.840.114 103 [id number] Univers 00:00:00 00:00:00 Ogechukwu [place] 350.1.13.10 ity of [place] 4[place].2.[place] [phone] Fl dical NAL 044 [facility] 2022-08-28 2022-08-28 Telephone [facility] 1.2.840.114 103 [id number] Univers 00:00:00 00:00:00 Ogechukwu [place] 350.1.13.10 ity of [place] [phone] Fl dical NAL 231 [facility] 2022-08-27 2022-08-27 Telephone [facility] 1.2.840.114 103 [id number] Univers 00:00:00 00:00:00 Ogechukwu [place] 350.1.13.10 ity of [place] 4.[place].7.2.[place] [phone] Fl dical NAL 044 [facility] 2022-08-27 2022-08-27 Telephone [facility] 1.2.840.114 103 [id number] Univers 00:00:00 00:00:00 Ogechukwu [place] 350.1.13.10 ity of [place] 4.[place].2.[place] [phone] Fl dical NAL 044 [facility] 2022-08-26 2022-08-26 Telephone [facility] 1.2.840.114 103 [id number] Univers 00:00:00 00:00:00 Ogechukwu [place] 350.1.13.10 ity of [place] 4.[place].2.[place] [phone] Fl dical NAL [address] [place] [address] 2022-08-21 2022-08-21 Abstract [facility] 1.2.890.864 5813 74748 Univers 00:00:00 00:00:00 Ramón CHAMBERS 350.1.13.10 ity of [place] 4[place]2.7.2.[place] [phone] Fl dicaz NAL 044 [facility] 2022-08-19 2022-08-19 Telephone [facility] 1.2.840.114 102 [id number] Univers 00:00:00 00:00:00 Ogestevan CHAMBERS 350.1.13.10 ity of [place] 4[place].2.[place] [phone] [address] 2022-08-15 2022-08-15 Outpatient R RENEE [facility] [id number] Univers 15:40:00 15:40:00 LEIGHTON JEFFERSON it y [facility] 2022-08-14 2022-08-14 Emergency X [facility] [id number] Univers 00:06:00 03:01:00 LES ity [facility] 2022-08-14 2022-08-14 Emergency [facility] 1.2.840.114 1 [id number] Univers 00:06:00 03:01:00 Les CHAMBERS 350.1.13.10 i ty of [place].7.2.[place] [phone] [facility] [address] 2022-08-08 2022-08-08 Outpatient R CIARA [facility] [id number] Univers 16:45:00 15:22:09 BLAS ity [facility] 2022-08-07 2022-08-07 Orders Doctor GILBERT 1.2.840.114 [id number] Univers 00:00:00 00:00:00 Only Unassigned, BRANDEE 350.1.13.10 it[facility] 4.2.7.2.686 [place] [phone] [facility] [address] 2022-08-07 2022-08-07 Telephone [facility] 1.2.840.114 102 [id number] Univers 00:00:00 00:00:00 Ogbasiliou [place] 350.1.13.10 ity of [facility] 4.2.7.2.[place] [phone] [address] 2022-08-05 2022-08-05 Outpatient R ANAMARIA KRAFTLEDYJustinReji [facility] [id number] Univers 13:00:00 14:16:22 ABENAEDILIA SANTIZOVAN ity of [facility] 2022-08-05 2022-08-05 Office Abena [facility] 1.2.840.114 [id number] Univers 13:00:00 14:16:22 Visit Ramón CHAMBERS 350.1.13.10 ity of [place] [phone] [address] 2022-08-05 2022-08-05 Patient Bao [facility] 1.2.840.114 [id number] 714 Univers 00:00:00 00:00:00 Outreach Mari CHAMBERS 350.1.13.10 ity of [place] 4[place]2.[place].2.[place] [phone] [facility] 044 [facility] 2022-08-02 2022-08-02 Orders Doctor KOENIG 1.2.840.114 [id number] 861 Univers 00:00:00 00:00:00 Only Unassigned, BRANDEE 350.1.13.10 ity of [place] [facility] 4.2.7.2.686 [place] [phone] [facility] [address] 2022-08-02 2022-08-02 Telephone GILBERT Mcneal 1.2.840.114 10 [id number] Univers 00:00:00 00:00:00 Clare IRVIN 350.1.13.10 it y of HOSPITAL 4.2.7.2.686 [place] as [phone] [facility] [address] 2022-08-01 2022-08-01 Transition TANI Snow 1.2.840.114 102 [id number] Univers 00:00:00 00:00:00 of Care Alex MORALES 350.1.13.10 [place]2.[place] [phone] [facility] [address] 2022-08-01 2022-08-01 Telephone GILBERT Mcneal 1.2.840.114 10 [id number] Univers 00:00:00 00:00:00 Clare IRVIN 350.1.13.10 it y of [facility] 4.2.7.2.686 [place]has as [phone] [facility] [address] 2022-07-28 2022-07-31 [facility] [id number] Univers 01:36:00 19:14:00 MALIK ity [facility] 2022-07-28 2022-07-31 [facility] Lolita Brennan PERALTA 1.2.840.114 [id number] Univers 01:36:00 19:14:00 Encounter Malik Mayo 350.1.13.10 ity [facility] 4.2.7.2.686 [place] [phone] [facility] [address] 2022-07-18 2022-07-19 Emergency [facility] 1.2.532.620 4950 06332 Univers 21:30:00 01:47:00 [facility] 350.1.13.10 ity [facility] [place] [address] [address] [phone] [facility] [address] 2022-07-18 2022-07-19 Emergency X [facility] ERT [id number] Univers 21:30:00 01:47:00 ADOLFO espana [facility] 2022-06-25 2022-07-03 [facility] 1.2.840.1 [id number] Methodi 10:52:00 03:00:00 Encounter Wilberto Joe 63132.1.[address] Mitzi Naif 3.430.2.7 H ospita .3.668699 l .8 2022-06-25 2022-07-03 [facility] 1.2.840.1 [id number] Methodi 10:52:00 03:00:00 Encounter Wilberto Joe 70707.1.[address] Naif [place] 3.430.2.7 H ospita .3.895292 l .8 2022-07-03 2022-07-03 Documentat Abrams, 1.2.840.1 [id number] 2 [id number] Methodi 00:00:00 00:00:00 ion [address]yle [address]42.1.[address] 3.430.2.7 Hospit a .3.698249 l .8 2022-07-03 2022-07-03 Documentat Abrams, 1.2.840.1 [id number] 2 [id number] Methodi 00:00:00 00:00:00 [address]28.1.[address] 3.430.2.7 Hospit a .3.127472 l .8 2022-06-26 2022-06-26 Surgery Nurko, 1.2.840.1 236830507 640475 2993 Methodi 16:50:00 18:20:[address] 3.430.2.7 Hospit a .3.956601 l .8 2022-06-26 2022-06-26 Surgery Nurko, 1.2.840.1 899305875 755938 9454 Methodi 16:50:00 18:20:[address] 3.430.2.7 Hospit a .3.414768 l .8 2022-06-26 2022-06-26 Anesthesia [facility] 1.2.840.1 104 724335 [id number] Methodi 16:46:00 17:36:00 Event Thong Torres 41960.1.[address] 3.430.2.7 Hospit a .3.744993 l .8 2022-06-26 2022-06-26 [facility]esthesia [facility] 1.2.840.1 104 838231 3862977256 Methodi 16:46:00 17:36:00 Event Thong Torres 54560.1.[address] 3.430.2.7 Hospit a .3.309157 l .8 2022-06-25 2022-06-25 Office Nur, 1.2.840.1 [id number] 084587 2802 Methodi 09:00:00 10:28:55 Visit Davin 19738.1.[address] 3.430.2.7 Hospit a .3.708152 l .8 2022-06-25 2022-06-25 Office Aaron, 1.2.840.1 [id number] 010180 2721 Methodi 09:00:00 10:28:55 Visit Davin 32487.1.[address] 3.430.2.7 Hospit a .3.298303 l .8 2022-06-25 2022-06-25 Travel 1.2.840.1 1.2.865.038 5982 653864 Methodi 00:00:00 00:00:[address] 3.430.2.7 0.2.7.3.698 Ho spita .3.532231 084.8 l .8 2022-06-25 2022-06-25 Travel 1.2.840.1 1.2.155.478 1182 562202 Methodi 00:00:00 00:00:[address] 3.430.2.7 0.2.7.3.698 Ho spita .3.991724 084.8 l .8 2022-06-21 2022-06-21 Office Aaron Davin 1.2.840.1 [id number] [id number] Methodi 13:00:00 14:47:04 Visit Louisa Escobar 20746.1.[address] 3.430.2.7 Hospit a .3.941853 l .8 2022-06-21 2022-06-21 Office Rocky Walkero 1.2.840.1 293653613 1081315263 Methodi 13:00:00 14:47:04 Visit Louisa Escobar 34647.1.[address] 3.430.2.7 Hospit a .3.261513 l .8 2022-06-21 2022-06-21 Travel 1.2.840.1 1.2.041.731 5414 581535 Methodi 00:00:00 00:00:[address] 3.430.2.7 0.2.7.3.698 Ho spita .3.634731 084.8 l .8 2022-06-21 2022-06-21 Travel 1.2.840.1 1.2.566.634 9882 049168 Methodi 00:00:00 00:00:[address] 3.430.2.7 0.2.7.3.698 Ho spita .3.471852 084.8 l .8 2022-06-14 2022-06-14 Office [facility], 1.2.840.1 [id number] 560494 1859 Methodi 13:10:00 13:23:28 Visit Davin 95821.1.[address] 3.430.2.7 Hospit a .3.147955 l .8 2022-06-14 2022-06-14 Office Cassidy, 1.2.840.1 332774764 807194 3365 Methodi 13:10:00 13:23:28 Visit Davin 30018.1.[address] 3.430.2.7 Hospit a .3.551725 l .8 2022-06-14 2022-06-14 Travel 1.2.840.1 1.2.108.844 8141 483300 Methodi 00:00:00 00:00:[address] 3.430.2.7 0.2.7.3.698 Ho spita .3.851766 084.8 l .8 2022-06-14 2022-06-14 Travel 1.2.840.1 1.2.133.098 5031 330881 Methodi 00:00:00 00:00:[address] 3.430.2.7 0.2.7.3.698 Ho spita .3.920780 084.8 l .8 2022-05-24 2022-05-24 Office Nur, 1.2.840.1 078044529 175078 1247 Methodi 14:00:00 14:54:06 Visit Davin 40649.1.[address] 3.430.2.7 Hospit a .3.219694 l .8 2022-05-24 2022-05-24 Office Nur, 1.2.840.1 265861976 005812 9279 Methodi 14:00:00 14:54:06 Visit Davin 65080.1.[address] 3.430.2.7 Hospit a .3.996883 l .8 2022-05-24 2022-05-24 Travel 1.2.840.1 1.2.851.332 2093 473624 Methodi 00:00:00 00:00:[address] 3.430.2.7 0.2.7.3.698 Ho spita .3.937796 084.8 l .8 2022-05-24 2022-05-24 Travel 1.2.840.1 1.2.872.145 9563 000546 Methodi 00:00:00 00:00:[address] 3.430.2.7 0.2.7.3.698 Ho spita .3.540420 084.8 l .8 2022-05-08 2022-05-14 [facility] 1.2.840.1 [id number] [id number] Methodi 11:57:00 14:24:00 Encounter Noman Brewer 68976.1.1 [facility] .3.278668 l .8 2022-05-08 2022-05-14 [facility] 1.2.840.1 956550368 [id number] Methodi 11:57:00 14:24:00 Encounter Noman Brewer 81542.1.1 930 [facility], Ron Ding 3.430.2.7 Hospita .3.600323 l .8 2022-05-14 2022-05-14 Documentat Paulo, 1.2.840.1 524091175 9318332416 Methodi 00:00:00 00:00:00 ion Alyse 31236.1.[address] 3.430.2.7 Hospit a .3.368727 l .8 2022-05-14 2022-05-14 Documentat Paulo, 1.2.840.1 857772989 6315081910 Methodi 00:00:00 00:00:[address]se [address]285.1.[address] 3.430.2.7 Hospit a .3.452617 l .8 2022-05-10 2022-05-10 Surgery Nurko, 1.2.840.1 869649617 712992 4554 Methodi 11:00:00 13:05:[address] 3.430.2.7 Hospit a .3.471111 l .8 2022-05-10 2022-05-10 Surgery Nurko, 1.2.840.1 905314429 277101 6057 Methodi 11:00:00 13:05:[address] 3.430.2.7 Hospit a .3.471315 l .8 2022-05-10 2022-05-10 Anesthesia Beulah Barcenas 1.2.840.1 348259 023 6813020871 Methodi 11:12:00 12:34:00 Event Mari Gamboa 81968.1.[address] 3.430.2.7 Hospit a .3.658613 l .8 2022-05-10 2022-05-10 Anesthesia Beulah Barcenas 1.2.840.1 304785 023 2084393611 Methodi 11:12:00 12:34:00 Event Mari Gamboa 33238.1.[address] 3.430.2.7 Hospit a .3.771243 l .8 2022-04-24 2022-04-24 Patient Carroll, 1.2.840.1 746173027 93014 37156 Methodi 00:00:00 00:00:00 Outreach Cheri 90398.1.1 432 s t 3.430.2.7 Hospit a .3.804188 l .8 2022-04-24 2022-04-24 Patient Carly, 1.2.840.1 655241350 63012 57956 Methodi 00:00:00 00:00:00 Outreach Cheri 51176.1.1 432 s t 3.430.2.7 Hospit a .3.224498 l .8 2022-04-12 2022-04-19 [facility] Fortino Feldman 1.2.840 .1 179943101 4237390940 Methodi 15:27:00 19:06:00 Encounter Hector Orozco 16543.1.1 263 [facility] 3.430.2.7 Hospita Shaikh Abiruchi .3.212346 l Nadericalli, July .8 2022-04-12 2022-04-19 [facility] Fortino Feldman 1.2.840 .1 756111379 4412066759 Methodi 15:27:00 19:06:00 Encounter Hector Orozco 80885.1.1 263 Fahad Mc 3.430.2.7 Hospita [facility], Abid .3.285182 l Nadimpalli, July .8 2022-04-19 2022-04-19 Anesthesia Tu, 1.2.840.1 882544234 610 2030874 Methodi 14:04:00 14:26:00 Event Jesus 90581.1.[address] Thi 3.430.2.7 Hospit a .3.410634 l .8 2022-04-19 2022-04-19 Anesthesia Tu, 1.2.840.1 290279411 337 0888915 Methodi 14:04:00 14:26:00 Event Jesus 37323.1.[address] Thi 3.430.2.7 Hospit a .3.880738 l .8 2022-03-08 2022-03-14 [facility] Laxmi Arredondo 1.2.840.1 10 4214404 1944416632 Methodi 22:25:00 20:26:00 Encounter Jeff Short Thi 07097.1.1 934 [facility].430[facility]7 [facility] .3.282956 l Tyron, Elain .8 2022-03-08 2022-03-14 [facility] 1.2.840.1 10 3898804 6188392266 Methodi 22:25:00 20:26:00 Encounter Jeff Short Thi 23046.1.1 934 [facility] 3.430.2.7 Hospita [facility] .3.061897 l Tyron, Noman .8 2022-03-12 2022-03-12 Surgery [facility], 1.2.840.1 528799146 984641 4332 Methodi 14:03:00 15:48:[address] 3.430.2.7 Hospit a .3.645649 l .8 2022-03-12 2022-03-12 Surgery Nurko, 1.2.840.1 892265816 023800 1990 Methodi 14:03:00 15:48:[address] 3.430.2.7 Hospit a .3.793296 l .8 2022-03-12 2022-03-12 Anesthesia Urrutia, 1.2.840.1 220605038 088 4803747 Methodi 14:23:00 15:33:00 Event Mary Estevez 52100.1.[address] 3.430.2.7 Hospit a .3.034148 l .8 2022-03-12 2022-03-12 Anesthesia Urrutia, 1.2.840.1 780069522 168 2655736 Methodi 14:23:00 15:33:00 Event Mary Sandovalan 83600.1.[address] 3.430.2.7 Hospit a .3.942058 l .8 2022-03-08 2022-03-08 Travel 1.2.840.1 1.2.891.087 0095 345557 Methodi 00:00:00 00:00:[address] 3.430.2.7 0.2.7.3.698 Ho spita .3.169289 084.8 l .8 2022-03-08 2022-03-08 Travel 1.2.840.1 1.2.946.007 7100 755104 Methodi 00:00:00 00:00:[address] 3.430.2.7 0.2.7.3.698 Ho spita .3.016244 084.8 l .8 2022-01-01 2022-01-05 [facility]patient [id number] [facility] 16:59:00 12:20:[address] [place] [address] 2021-12-10 2021-12-14 [facility] Wilberto Carbajal 1.2.840.1 104 742547 [id number] Methodi 21:52:00 15:50:00 Encounter Ale Farias Amod 61588.1.[address] René De Jesus 3.430.2.7 Hospita .3.756084 l .8 2021-12-10 2021-12-14 [facility] iWlberto Carbajal 1.2.840.1 104 218295 4993704919 Methodi 21:52:00 15:50:00 Encounter Ale Farias Amod 72088.1.[address] René De Jesus 3.430.2.7 Hospita .3.611572 l .8 2021-12-10 2021-12-10 Travel 1.2.840.1 1.2.289.133 6300 840163 Methodi 00:00:00 00:00:[address] 3.430.2.7 0.2.7.3.698 Ho spita .3.885023 084.8 l .8 2021-12-102021-12-10 Travel 1.2.840.1 1.2.853.580 0804 132035 Methodi 00:00:00 00:00:[address] 3.430.2.7 0.2.7.3.698 Ho spita .3.774897 084.8 l .8 2021-11-08 2021-11-08 Emergency Mitzi, 1.2.840.1 [id number] 2099 875478 Methodi 10:26:00 14:01:[address] 3.430.2.7 Hospit a .3.886900 l .8 2021-11-08 2021-11-08 Emergency Mitzi, 1.2.840.1 [id number] 2099 634194 Methodi 10:26:00 14:01:[address] 3.430.2.7 Hospit a .3.891843 l .8 2021-10-10 2021-10-10 Emergency Ip, Fahad 1.2.840.1 180157991 7991894848 Methodi 20:57:00 23:49:[address] 3.430.2.7 Hospit a .3.474123 l .8 2021-10-10 2021-10-10 Emergency Ip, Fahad 1.2.840.1 057017831 [id number] Methodi 20:57:00 23:49:[address] 3.430.2.7 Hospit a .3.856926 l .8 2021-10-07 2021-10-07 Emergency EM Janina [facility] [id number] [facility] 06:46:00 07:39:00 Jerry 58 [facility] 2021-09-30 2021-09-30 Emergency EM Ingram [facility] [id number] [facility] 18:18:00 19:46:00 Margo 39 [facility] 2021-08-15 2021-08-15 Outpatient GC_HGMDA_Go PRIV PRIV [id number] [facility] 09:28:00 09:28:00 nzalez_J [id number] Medic al 2021-08-13 2021-08-13 Outpatient GC_HGMDA_Go PRIV PRIV 110 [id number] [facility] 12:25:00 12:25:00 nzalez_J [id number] Medic al 2021-08-06 2021-08-06 Emergency EM Cresencio, [facility] [id number] [facility] 15:06:00 18:56:00 Brennan 32 [facility] 2021-07-18 2021-07-[address] [facility] [id number] 00:00:00 00:00:00 [facility] 2021-06-29 2021-06-29 Office 0 Viel[place] [id number] 13:30:00 16:29:55 Visit 06 2021-06-29 2021-06-29 Outpatient Berta Schwab, [facility] [id number] [place] 13:13:00 13:13:00 [place] [id number] [facility] 2021-03-22 2021-03-22 Travel 1.2.840.1 1.2.171.586 [id number] [facility] 00:00:00 00:00:[address] 3.430.2.7 0.2.7.3.698 Ho spita .3.143563 084.8 l .8 2021-02-02 2021-02-[address] [facility] [id number] [place] 14:47:00 17:56:00 grant Shazia Alegre clyde Marshall 2021-02-02 2021-02-02 Emergency LOPEZ, [facility] [id number] [place] 15:08:10 15:31:04 [facility] 2021-01-02 2021-01-03 Emergency Juan, 1.2.840.1 [id number] [facility] 18:54:00 01:22:00 Donaldo Ramos [address].1.[address] 3.430.2.7 Hospit a .3.473836 l .8 2020-12-24 2020-12-24 Emergency [facility] [id number] [facility] 12:04:00 17:13:00 Jerry [facility] Results Test Description Test Time Test Comments Results Result Comments Source BASIC METABOLIC PANEL (NA, K, CL, CO2, GLUCOSE, BUN, 2022-08 03:38:19 CREATININE, [place]) Test Item Value Reference Range Interpretation Comme nts NA (test code = 9580786277) 137 mmol/L 135-145 K (test code = 8453624997) 5.9 mmol/L 3.5-5.0 H CL (test code = 9130529089) 103 mmol/L 98-108 CO2 TOTAL (test code = 6667434557) 25 mmol/L 23-31 AGAP (test code = 9173030296) 9 2-16 BUN (test code = 2899432613) 23 mg/dL 7-23 GLUCOSE (test code = 4278107360) 235 mg/dL 70-110 H CREATININE (test code = 1.14 mg/dL 0.60-1.25 2693521664) CALCIUM (test code = 9935946536) 8.8 mg/dL 8.6-10.6 eGFR (test code = 3363773630) 66.7 mL/min/1.73m2 MOE (test code = MOE) [...] tests). Lab Interpretation (test code = Abnormal 36594-1) [facility] 07:30:03 Test Item Value Reference Range Interpretation Comments POCT GLU (test code = 3955867413) 175 mg/dL 70-110 H Lab Interpretation (test code = Abnormal 24781-2) [facility] (NA, K, CL, CO2, GLUCOSE, BUN, CREATININE, CA)2022-08-14 06:49:10 Test Item Value Reference Range Interpretation Comments NA (test code = 137 mmol/L 135-145 7264103281) K (test code = 4.8 mmol/L 3.5-5.0 6538679084) CL (test code = 106 mmol/L 98-108 7525912090) CO2 TOTAL (test code = 25 mmol/L 23-31 8737537969) AGAP (test code = 6 2-16 8327139012) BUN (test code = 35 mg/dL 7-23 H 7936579535) GLUCOSE (test code = 187 mg/dL 70-110 H 5374781570) CREATININE (test code = 1.19 mg/dL 0.60-1.25 0914109898) CALCIUM (test code = 8.5 mg/dL 8.6-10.6 L 5260060932) eGFR (test code = 63.5 mL/min/1.73m2 9733163374) MOE (test code = MOE) Association of [...] tests). Lab Interpretation Abnormal (test code = 22737-5) [facility] WITH [id number] 06:35:09 Test Item Value Reference Range Interpretation Comments WBC (test code = 6.59 See_Comment [Automated 2834-2) message] The sy stem which generated this result transmitted reference range : 4.20 - 10.70 10*3/?L. The reference range was not used to interpret this result as normal/abnormal . RBC (test code = 3.10 See_Comment L [Automated 874-8) message] The sy stem which generated this [...] (test code = 58.6 fL 38.5-51.6 H 61353-8) RDW-CV (test code = 17.5 % 12.1-15.4 H 788-0) PLT (test code = 328 See_Comment [Automated 777-3) message] The sy stem which generated this result transmitted reference range : 150 - 328 10*3/ ?L. The reference r maggi was not used to interpret this result as normal/abnormal . MPV (test code = 10.1 fL 9.8-13.0 41673-2) NRBC/100 WBC (test 0.0 See_Comment [Automat ed code = 3347079660) message] The system which generated this result transmitted reference range : 0.0 - 10.0 /100 WBCs. The refer ence range was not u sed to interpret th is result as normal/abnormal . NRBC x10^3 (test code See_Comment [Auto mated = 6557034338) message] The s ystem which generated this result transmitted reference range : 10*3/?L. The reference range was not used to interpret this result as normal/abnormal . GRAN MAT (NEUT) % 63.9 % (test code = 770-8) IMM GRAN % (test code 0.50 % = 4007237186) LYMPH % (test code = 24.9 % 736-9) MONO % (test code = 7.4 % 5905-5) EOS % (test code = 2.4 % 713-8) BASO % (test code = 0.9 % 706-2) GRAN MAT x10^3(ANC) 4.21 10*3/uL 1.99-6.95 (test code = 4653903710) IMM GRAN x10^3 (test 0.03 10*3/uL 0.00-0.06 code = 2617039607) LYMPH x10^3 (test code 1.64 10*3/uL 1.09-3.23 = 731-0) MONO x10^3 (test code 0.49 10*3/uL 0.36-1.02 = 742-7) EOS x10^3 (test code = 0.16 10*3/uL 0.06-0.53 711-2) BASO x10^3 (test code 0.06 10*3/uL 0.01-0.09 = 704-7) Lab Interpretation Abnormal (test code = 25064-7) [address]2023-04-20 20:13:46 Test Item Value Reference Range Interpretation Comments Ventricular rate (test 79 code = 253) Atrial rate (test code 79 = 255) WA interval (test code 150 = 266) QRSD [...] lengthened-Electronica lly Signed By Jaspreet Cannon MD ([id number]) on 08/08/2022 3:13:[address]2023-04-20 20:13:46 Test Item Value Reference Range Interpretation Comments Ventricular rate (test 79 code = 253) Atrial rate (test code 79 = 255) WA interval (test code 150 = 266) QRSD [...] lengthened-Electronica lly Signed By Jaspreet Cannon MD ([id number]) on 08/08/2022 3:13:[address]2023-04-20 20:13:46 Test Item Value Reference Range Interpretation Comments Ventricular rate (test 79 code = 253) Atrial rate (test code 79 = 255) WA interval (test code 150 = 266) QRSD [...] Cannon MD ([id number]) on 08/08/2022 3:13:43 PM [address]2023-04-20 20:13:46 Test Item Value Reference Range Interpretation Comments Ventricular rate (test 79 code = 253) Atrial rate (test code 79 = 255) WA interval (test code 150 = 266) QRSD [...] Cannon MD ([id number]) on 08/08/2022 3:13:[address] PM [address]2023-04-20 20:13:46 Test Item Value Reference Range Interpretation Comments Ventricular rate (test 79 code = 253) Atrial rate (test code 79 = 255) WA interval (test code 150 = 266) QRSD [...] Cannon MD ([id number]) on 08/08/2022 3:13:43 PM [facility] 12 [id number] 20:13:46 Test Item Value Reference Range Interpretation Comments Ventricular rate (test 79 code = 253) Atrial rate (test code 79 = 255) WA interval (test code 150 = 266) QRSD [...] Cannon MD ([id number]) on 08/08/2022 3:13:43 PM [facility]2023-04-20 05:30:00 Test Item Value Reference Range Interpretation Comments AFB culture No growth Specimen isolate (test after 6 weeks InformationSp ecimen code = 543-9) of Source: Tissue Specimen incubation. Site: Leg: [facility]2023-04-20 05:30:00 Test Item Value Reference Range Interpretation Comments AFB culture No growth Specimen isolate (test after 6 weeks InformationSp ecimen code = 543-9) of Source: Tissue Specimen incubation. Site: Leg: Left Lower Extremity - [facility]2023-04-20 05:30:00 Test Item Value Reference Range Interpretation Comments AFB culture No growth Specimen isolate (test after 6 weeks InformationSp ecimen code = 543-9) of Source: Tissue Specimen incubation. Site: Leg: Left Lower Extremity - Cul ture [facility]2023-04-20 05:30:00 Test Item Value Reference Range Interpretation Comments AFB culture No growth Specimen isolate (test after 6 weeks InformationSp ecimen code = 543-9) of Source: Tissue Specimen incubation. Site: Leg: [facility] kftvvtm2164-[facility] 05:30:00 Test Item Value Reference Range Interpretation Comments AFB culture No growth Specimen isolate (test after 6 weeks InformationSp ecimen code = 543-9) of Source: Tissue Specimen incubation. Site: Leg: [facility]ity [facility] urisvje5225-73-83 05:30:00 Test Item Value Reference Range Interpretation Comments AFB culture No growth Specimen isolate (test after 6 weeks InformationSp ecimen code = 543-9) of Source: Tissue Specimen incubation. Site: Leg: Left Lower Extremity - Cul [facility] GLUCOSE (AUTOMATED)2022-07-31 22:28:25 Test Item Value Reference Range Interpretation Comments POCT GLU (test code = 9531500250) 116 mg/dL 70-110 H Lab Interpretation (test code = Abnormal 04215-4) [facility] GLUCOSE (AUTOMATED)2022-07-31 17:14:36 Test Item Value Reference Range Interpretation Comments POCT GLU (test code = 1885447375) 136 mg/dL 70-110 H Lab Interpretation (test code = Abnormal 81346-7) [facility] GLUCOSE (AUTOMATED)2022-07-31 01:47:10 Test Item Value Reference Range Interpretation Comments POCT GLU (test code = 0564688528) 141 mg/dL 70-110 H Lab Interpretation (test code = Abnormal 27249-5) [facility] GLUCOSE (AUTOMATED)2022-07-30 23:18:09 Test Item Value Reference Range Interpretation Comments POCT GLU (test code = 2918573601) 140 mg/dL 70-110 H Lab Interpretation (test code = Abnormal 60913-6) [facility] GLUCOSE (AUTOMATED)2022-07-30 18:43:38 Test Item Value Reference Range Interpretation Comments POCT GLU (test code = 0612737302) 165 mg/dL 70-110 H Lab Interpretation (test code = Abnormal 62530-2) [facility] GLUCOSE (AUTOMATED)2022-07-30 14:19:36 Test Item Value Reference Range Interpretation Comments POCT GLU (test code = 6043267154) 90 mg/dL 70-110 Lab Interpretation (test code = Normal 59241-6) [facility] GLUCOSE (AUTOMATED)2022-07-30 01:37:57 Test Item Value Reference Range Interpretation Comments POCT GLU (test code = 8923486189) 100 mg/dL 70-110 Lab Interpretation (test code = Normal 57269-2) [facility] GLUCOSE (AUTOMATED)2022-07-29 22:44:33 Test Item Value Reference Range Interpretation Comments POCT GLU (test code = 8747824720) 113 mg/dL 70-110 H Lab Interpretation (test code = Abnormal 84889-9) [facility] GLUCOSE (AUTOMATED)2022-07-29 18:36:00 Test Item Value Reference Range Interpretation Comments POCT GLU (test code = 9549277795) 108 mg/dL 70-110 Lab Interpretation (test code = Normal 05350-7) [facility] GLUCOSE (AUTOMATED)2022-07-29 13:47:37 Test Item Value Reference Range Interpretation Comments POCT GLU (test code = 5496147730) 91 mg/dL 70-110 Lab Interpretation (test code = Normal 22715-6) [facility] GLUCOSE (AUTOMATED)2022-07-29 01:19:16 Test Item Value Reference Range Interpretation Comments POCT GLU (test code = 5398035621) 143 mg/dL 70-110 H Lab Interpretation (test code = Abnormal 34171-1) [facility] GLUCOSE (AUTOMATED)2022-07-28 21:10:26 Test Item Value Reference Range Interpretation Comments POCT GLU (test code = 6435822678) 148 mg/dL 70-110 H Lab Interpretation (test code = Abnormal 04816-7) [facility] GLUCOSE (AUTOMATED)2022-07-28 17:13:13 Test Item Value Reference Range Interpretation Comments POCT GLU (test code = 2583608608) 199 mg/dL 70-110 H Lab Interpretation (test code = Abnormal 85366-0) [facility] GLUCOSE (AUTOMATED)2022-07-28 12:53:47 Test Item Value Reference Range Interpretation Comments POCT GLU (test code = 5432146511) 113 mg/dL 70-110 H Lab Interpretation (test code = Abnormal 47340-3) [facility] 08:02:41 Test Item Value Reference Range Interpretation Comments POCT GLU (test code = 9020539185) 126 mg/dL 70-110 H Lab Interpretation (test code = Abnormal 92764-1) [facility] euchrjo9893-69-83 05:40:00 Test Item Value Reference Range Interpretation Comments Fungus culture No growth Specimen isolate (test after 4 weeks InformationSp ecimen code = 580-1) of Source: Tissue Specimen incubation. Site: Leg: Left Lower Extremity - [facility] sknnhrr3715-42-86 05:40:00 Test Item Value Reference Range Interpretation Comments Fungus culture No growth Specimen isolate (test after 4 weeks InformationSp ecimen code = 580-1) of Source: Tissue Specimen incubation. Site: Leg: Left Lower Extremity - [facility] ktytoqw2101-19-21 05:40:00 Test Item Value Reference Range Interpretation Comments Fungus culture No growth Specimen isolate (test after 4 weeks InformationSp ecimen code = 580-1) of Source: Tissue Specimen incubation. Site: Leg: Left Lower Extremity - [facility] thkvuou8234-31-48 05:40:00 Test Item Value Reference Range Interpretation Comments Fungus culture No growth Specimen isolate (test after 4 weeks InformationSp ecimen code = 580-1) of Source: Tissue Specimen incubation. Site: Leg: Left Lower Extremity - [facility] rqpofos0801-69-35 05:40:00 Test Item Value Reference Range Interpretation Comments Fungus culture No growth Specimen isolate (test after 4 weeks InformationSp ecimen code = 580-1) of Source: Tissue Specimen incubation. Site: Leg: Left Lower Extremity - [facility] hshvhck4350-24-08 05:40:00 Test Item Value Reference Range Interpretation Comments Fungus culture No growth Specimen isolate (test after 4 weeks InformationSp ecimen code = 580-1) of Source: Tissue Specimen incubation. Site: Leg: Left Lower Extremity - [facility]. Metabolic Panel (16937)2022-07-19 03:26:53 Test Item Value Reference Range Interpretation Comments NA (test code = 140 mmol/L 135-145 0669902107) K (test code = 5.3 mmol/L 3.5-5.0 H 9107321351) CL (test code = 101 mmol/L 98-108 4188896757) CO2 TOTAL (test code = 27 mmol/L 23-31 6896240765) AGAP (test code = 12 2-16 6359394704) BUN (test code = 30 mg/dL 7-23 H 2918464311) GLUCOSE (test code = 189 mg/dL 70-110 H 3600880867) CREATININE (test code = 1.24 mg/dL 0.60-1.25 0629291968) TOTAL BILI (test code = 0.4 mg/dL 0.1-1.6 7371821929) CALCIUM (test code = 9.3 mg/dL 8.6-10.6 3564275615) T PROTEIN (test code = 8.0 g/dL 6.3-8.2 4155556802) ALBUMIN (test code = 4.1 g/dL 3.5-5.0 8667982687) ALK PHOS (test code = 107 U/L 34-122 1989831665) ALTv (test code = 43 U/L 5-50 1742-6) AST(SGOT) (test code = 38 U/L 13-40 5522271246) eGFR (test code = 60.5 mL/min/1.73m2 4880625899) MOE (test code = MOE) Association of [...] tests). Lab Interpretation Abnormal (test code = 62895-6) [facility] with [id number] 03:23:09 Test Item Value Reference Range Interpretation Comments WBC (test code = 6.48 See_Comment [Automated 9590-2) message] The sy stem which generated this [...] RDW-SD (test code = 49.0 fL 38.5-51.6 99748-9) RDW-CV (test code = 15.0 % 12.1-15.4 788-0) PLT (test code = 542 See_Comment H [Automated 777-3) message] The sy stem which generated this result transmitted reference range : 150 - 328 10*3/ ?L. The reference r maggi was not used to interpret this result as normal/abnormal . MPV (test code = 9.6 fL 9.8-13.0 L 48296-6) NRBC/100 WBC (test 0.0 See_Comment [Automat ed code = 2996649839) message] The system which generated this result transmitted reference range : 0.0 - 10.0 /100 WBCs. The refer ence range was not u sed to interpret th is result as normal/abnormal . NRBC x10^3 (test code See_Comment [Auto mated = 8902647806) message] The s ystem which generated this result transmitted reference range : 10*3/?L. The reference range was not used to interpret this result as normal/abnormal . GRAN MAT (NEUT) % 60.7 % (test code = 770-8) IMM GRAN % (test code 0.50 % = 0082965277) LYMPH % (test code = 28.2 % 736-9) MONO % (test code = 6.9 % 5905-5) EOS % (test code = 2.5 % 713-8) BASO % (test code = 1.2 % 706-2) GRAN MAT x10^3(ANC) 3.93 10*3/uL 1.99-6.95 (test code = 1544729554) IMM GRAN x10^3 (test 0.03 10*3/uL 0.00-0.06 code = 9011934712) LYMPH x10^3 (test code 1.83 10*3/uL 1.09-3.23 = 731-0) MONO x10^3 (test code 0.45 10*3/uL 0.36-1.02 = 742-7) EOS x10^3 (test code = 0.16 10*3/uL 0.06-0.53 711-2) BASO x10^3 (test code 0.08 10*3/uL 0.01-0.09 = 704-7) Lab Interpretation Abnormal (test code = 34250-9) [facility] [id number] 16:22:00 Test Item Value Reference Range Interpretation Comments POC glucose (test code = 245 mg/dL 65-100 H Ope rator Name: Marilin 99543-7) GarzaDevice ID: [id number] Lab Interpretation (test Abnormal code = 93524-5) [facility] badjbps0893-07-04 16:22:00 Test Item Value Reference Range Interpretation Comments POC glucose (test code = 245 mg/dL 65-100 H Ope rator Name: Marilin 35777-7) GarzaDevice ID: [id number] Lab Interpretation (test Abnormal code = 04720-6) [facility]2023-03-15 16:22:00 Test Item Value Reference Range Interpretation Comments POC glucose (test code = 245 mg/dL 65-100 H Ope rator Name: Marilin 35115-2) GarzaDevice ID: [id number] Lab Interpretation (test Abnormal code = 49171-0) [facility]2023-03-15 16:22:00 Test Item Value Reference Range Interpretation Comments POC glucose (test code = 245 mg/dL 65-100 H Ope rator Name: Marilin 85419-9) GarzaDevice ID: [id number] Lab Interpretation (test Abnormal code = 42460-2) [facility]2023-03-15 16:22:00 Test Item Value Reference Range Interpretation Comments POC glucose (test code = 245 mg/dL 65-100 H Ope rator Name: Marilin 80666-5) GarzaDevice ID: [id number] Lab Interpretation (test Abnormal code = 93741-6) [facility]2023-03-15 16:22:00 Test Item Value Reference Range Interpretation Comments POC glucose (test code = 245 mg/dL 65-100 H Ope rator Name: Marilin 71207-6) GarzaDevice ID: [id number] Lab Interpretation (test Abnormal code = 02621-0) [facility] buokq7681-79-36 19:17:00 Test Item Value Reference Range Interpretation Comments IMP PCR (test NOT DETECTED Specimen Infor mationSpecimen code = Source: [facility] n Site: 77926-0) Tissue [id number] 07 OXA-48 PCR NOT DETECTED (test code = 8006) [facility] gbzax8110-81-38 19:17:00 Test Item Value Reference Range Interpretation Comments IMP PCR (test NOT DETECTED Specimen Infor mationSpecimen code = Source: [facility] Site: 36502-8) Tissue P5411261 07 OXA-48 PCR NOT DETECTED (test code = 8006) [facility] pabbw9961-24-25 19:17:00 Test Item Value Reference Range Interpretation Comments IMP PCR (test NOT DETECTED Specimen Infor mationSpecimen code = Source: [facility] Site: [address] [place] [address]) Tissue N5182516 07 OXA-48 PCR NOT DETECTED (test code = 8006) [facility] qnqpt8638-17-26 19:17:00 Test Item Value Reference Range Interpretation Comments IMP PCR (test NOT DETECTED Specimen Infor mationSpecimen code = Source: [facility] Site: 83478-2) Tissue A1173184 07 OXA-48 PCR NOT DETECTED (test code = 8006) [facility] nyizs5582-07-32 19:17:00 Test Item Value Reference Range Interpretation Comments IMP PCR (test NOT DETECTED Specimen Infor mationSpecimen code = Source: [facility] Site: 56647-0) Tissue [id number] 07 OXA-48 PCR NOT DETECTED (test code = 8006) [facility] bjfrt8416-10-09 19:17:00 Test Item Value Reference Range Interpretation Comments IMP PCR (test NOT DETECTED Specimen Infor mationSpecimen code = Source: [facility] Site: 54389-0) Tissue O2230014 07 OXA-48 PCR NOT DETECTED (test code = 8006) [facility] snvkftg2452-90-37 13:15:00 Test Item Value Reference Range Interpretation Comments Anaerobic No anaerobic Specimen culture isolate organisms InformationS pecimen (test code = isolated. Source: TissueS pecimen 99065-5) Site: Leg: Left Lower Extremity - Cul ture [facility] agydhsz6734-75-55 13:15:00 Test Item Value Reference Range Interpretation Comments Anaerobic No anaerobic Specimen culture isolate organisms InformationS pecimen (test code = isolated. Source: TissueS pecimen 66415-3) Site: Leg: Left Lower Extremity - Cul ture [facility] cqrbghp0577-40-85 13:15:00 Test Item Value Reference Range Interpretation Comments Anaerobic No anaerobic Specimen culture isolate organisms InformationS pecimen (test code = isolated. Source: [facility] 78842-0) Site: Leg: Left Lower Extremity - [facility] omglvpw7348-86-80 13:15:00 Test Item Value Reference Range Interpretation Comments Anaerobic No anaerobic Specimen culture isolate organisms InformationS pecimen (test code = isolated. Source: TissueS [facility] 43442-4) Site: Leg: Left Lower Extremity - [facility] lbnknxo6842-14-52 13:15:00 Test Item Value Reference Range Interpretation Comments Anaerobic No anaerobic Specimen culture isolate organisms InformationS pecimen (test code = isolated. Source: [facility] 87835-8) Site: Leg: Left Lower Extremity [facility] dsaecml7861-55-59 13:15:00 Test Item Value Reference Range Interpretation Comments Anaerobic No anaerobic Specimen culture isolate organisms InformationS pecimen (test code = isolated. Source: TissueS [facility] 30234-1) Site: Leg: Left Lower Extremity [facility] buivu9716-83-35 14:49:00 Test Item Value Reference Range Interpretation Comments AFB stain No acid fast Specimen (test code = bacilli (AFB) InformationSpe cimen 676-7) seen. Source: TissueS [facility] Site: Leg: Left Lower Extremity [facility]2023-03-11 14:49:00 Test Item Value Reference Range Interpretation Comments AFB stain No acid fast Specimen (test code = bacilli (AFB) InformationSpe cimen 676-7) seen. Source: TissueS [facility] Site: Leg: Left Lower Extremity [facility]2023-03-11 14:49:00 Test Item Value Reference Range Interpretation Comments AFB stain No acid fast Specimen (test code = bacilli (AFB) InformationSpe cimen 676-7) seen. Source: TissueS [facility] Site: Leg: Left Lower Extremity - [facility] sifqz7496-33-27 14:49:00 Test Item Value Reference Range Interpretation Comments AFB stain No acid fast Specimen (test code = bacilli (AFB) InformationSpe cimen 676-7) seen. Source: [facility] Site: Leg: Left Lower Extremity - Cul [facility]ure [facility] hrnqx6502-68-85 14:49:00 Test Item Value Reference Range Interpretation Comments AFB stain No acid fast Specimen (test code = bacilli (AFB) InformationSpe cimen 676-7) seen. Source: [facility] Site: Leg: Left Lower Extremity - Cul [facility]ure [facility] [id number] 14:49:00 Test Item Value Reference Range Interpretation Comments AFB stain No acid fast Specimen (test code = bacilli (AFB) InformationSpe cimen 676-7) seen. Source: [facility] Site: Leg: Left Lower Extremity - Cul [facility]ure [facility] vvtst1388-04-05 18:08:00 Test Item Value Reference Range Interpretation Comments Fungus smear No fungi Specimen (test code = observed. ChromaDex Source: 1443) [facility] Leg: Left Lower Extr emity - Culture [facility] jbycd3481-81-05 18:08:00 Test Item Value Reference Range Interpretation Comments Fungus smear No fungi Specimen (test code = observed. ChromaDex Source: 1443) [facility] Site: Leg: Left Lower Extr emity - Culture [facility] rwlia5567-25-23 18:08:00 Test Item Value Reference Range Interpretation Comments Fungus smear No fungi Specimen (test code = observed. ChromaDex Source: 1443) [facility] Site: Leg: Left Lower Extr emity - Culture [facility] fvler0800-89-98 18:08:00 Test Item Value Reference Range Interpretation Comments Fungus smear No fungi Specimen (test code = observed. ChromaDex Source: 1443) [facility] Site: Leg: Left Lower Extr emity - Culture [facility] tokpq3548-74-60 18:08:00 Test Item Value Reference Range Interpretation Comments Fungus smear No fungi Specimen (test code = observed. ChromaDex Source: 1443) [facility] Site: Leg: Left Lower Extr emity - Culture [facility] kiify5268-18-59 18:08:00 Test Item Value Reference Range Interpretation Comments Fungus smear No fungi Specimen (test code = observed. InformationMy Rental Unitsen Source: 1443) [facility] Site: Leg: Left Lower Extr emity - Culture [facility] nnhcl3730-69-52 17:14:00 Test Item Value Reference Range Interpretation Comments Gram stain Few Gram Specimen isolate (test negative rods InformationSp ecimen code = 1469) Source: [facility] Site: Leg: Left Lower Extremity - [facility] fdjjo3919-82-97 17:14:00 Test Item Value Reference Range Interpretation Comments Gram stain Few Gram Specimen isolate (test negative rods InformationSp ecimen code = 1469) Source: [facility] Site: Leg: Left Lower Extremity - [facility] dhrid7005-38-72 17:14:00 Test Item Value Reference Range Interpretation Comments Gram stain Few Gram Specimen isolate (test negative rods InformationSp ecimen code = 1469) Source: [facility] Site: Leg: Left Lower Extremity - [facility] naghi1378-21-69 17:14:00 Test Item Value Reference Range Interpretation Comments Gram stain Few Gram Specimen isolate (test negative rods InformationSp ecimen code = 1469) Source: [facility] Site: Leg: Left Lower Extremity - [facility] wuyox3404-14-25 17:14:00 Test Item Value Reference Range Interpretation Comments Gram stain Few Gram Specimen isolate (test negative rods InformationSp ecimen code = 1469) Source: [facility] Site: Leg: Left Lower Extremity - [facility] tirbo9080-18-74 17:14:00 Test Item Value Reference Range Interpretation Comments Gram stain Few Gram Specimen isolate (test negative rods InformationSp ecimen code = 1469) Source: [facility] Site: Leg: Left Lower Extremity - Cul [facility] lovlask4845-65-85 22:46:05 Test Item Value Reference Range Interpretation Comments Case number (test code = [id number]) Surgical pathology See link below for report (test code = PDF Lab Report 2255) Result status (test code This is Final Report = [id number]) for [id number] [facility] lhjgnkp6742-75-74 22:46:05 Test Item Value Reference Range Interpretation Comments Case number (test code = [id number]) Surgical pathology See link below for report (test code = PDF Lab Report 2255) Result status (test code This is Final Report = [id number]) for [address] pathology pdcgocd5279-78-34 22:46:05 Test Item Value Reference Range Interpretation Comments Case number (test code = [id number]) Surgical pathology See link below for report (test code = PDF Lab Report 225) Result status (test code This is Final Report = [id number]) for [address] pathology yxmspto2572-87-23 22:46:05 Test Item Value Reference Range Interpretation Comments Case number (test code = [id number]) Surgical pathology See link below for report (test code = PDF Lab Report 225) Result status (test code This is Final Report = [id number]) for [address] pathology yxmlzhy2629-37-77 22:46:05 Test Item Value Reference Range Interpretation Comments Case number (test code = [id number]) Surgical pathology See link below for report (test code = PDF Lab Report 225) Result status (test code This is Final Report = [id number]) for [address] pathology skkbwzd6760-48-95 22:46:05 Test Item Value Reference Range Interpretation Comments Case number (test code = [id number]) Surgical pathology See link below for report (test code = PDF Lab Report 225) Result status (test code This is Final Report = [id number]) for [address]an[address] Echocardiogram Complete, (w Contrast, Strain and 3D if needed)2022-05-10 21:23:23 Test Item Value Reference Interpretation Comments Range Ao Root Diameter 3.34 cm (test code = 6810999301) AoV Area, Vmax (test 3.02 cm2 >=1.5 code = 4523396747) AoV Area, VTI (test 3.07 cm2 code = 6502797820) AoV Mean PG (test 4.26 mmHg code = 0309260243) AoV Peak PG (test 6.38 mmHg code = 6148033027) AoV Vmax (test code 1.42 m/s = 3115874445) AoV VTI (test code = 0.26 m 0034988005) BSA Rashid (test code 2.11 m2 = 2313921839) BSA (test code = 2.02 m2 1731732130) IVS,d (test code = 0.84 cm 0.6-3 3961625621) IVS/LVPW,2D (test 0.98 code = 7635503854) Left Atrium 3.49 cm Dimension Anterior (test code = 4503080285) LV,d (test code = 4.74 cm 8451347035) LV EF,2D (test code 64.34 % = 2832232384) LV,s (test code = 3.36 cm 2295179783) LVOT area (test code 3.53 cm2 = 9390891264) LVOT Diam,S (test 2.12 cm code = 1071437345) LVOT Vmax (test code 1.13 m/s = 6308116558) LVOT VTI (test code 0.21 m = 6511866525) LVPWD,d (test code = 0.85 cm 0.60-1.19 9644634995) MV E A ratio (test 0.86 code = 2670730263) AoV area i VTI BSA 1.52 cm2/m2 >=0.85 [place] (test code = 7430494905) BMI (test code = 31.32 kg/m2 2296386330) E wave decelartion 89.56 See_Comment A [Automat ed time (test code = message] T he 2278007037) system which generated this result transmitted reference range : 200 msec. The reference range was not used to interpret this result as normal/abnormal . MV Peak A Quirino (test 0.88 m/s code = 9954560314) MV valve area p 1/2 8.47 cm2 method (test code = 4930964179) MV Peak E Quirino (test 0.75 m/s code = 8843290339) MV stenosis pressure 25.97 ms 1/2 time (test code = 7620401768) LVOT stroke volume 0.74 ml (test code = 0501664658) AV LVOT peak 4.69 mmHg gradient (test code = 7047590776) Ao Root Diameter 3.34 cm (test code = 9710284214) MV mean gradient 1.92 mmHg (test code = 2016799405) LV SYS VOL (test 46.16 ml 21-61 code = 8633530803) LV ANDERSON VOL (test 104.46 ml 62-150 code = 3254637760) LA area s A4C (test 17.60 cm2 code = 9370368303) LV SI Teich 2D (test 28.83 ml/m2 code = 1038517026) LV SV Teich 2D (test 58.30 ml code = 0104722301) LV Vol s Teich PSAX 46.16 ml (test code = 3221015083) LVOT CI (test code = 3.53 l/min/m2 3952533575) LVOT CO (test code = 7.14 l/min 4806012539) LVOT HR for LVOT CO 98.89 bpm (test code = 1357833581) LVOT SI (test code = 35.72 ml/m2 5281122913) MR peak grad (test 3.00 mmHg code = 4817264543) MV Vmax (test code = 0.87 m 4417365885) MV VTI Tips (test 0.14 m code = 0046300163) BSA Haycock (test 2.10 m2 code = 2987452427) AoV Vmn (test code = 0.97 m/s 8718063739) IVS s 2D (test code 1.17 cm = 7801588132) LV FS Teich 2D (test 29.09 code = 1028477081) MV AE ratio (test 1.17 code = 5864925450) LV FS Cube 2D (test 29.09 code = 4833098749) LVOT Vmn (test code 0.75 = 1015919180) Pt Size (test code = 170.18 3847160400) Pt Wt (test code = 90.72 2273473336) Aov area Vmn (test 3.05 cm2 code = 7463232496) LVOT mean grad (test 2.57 mmHg code = 5162443359) 85 of MPHR (test 140.25 code = 3464876812) AoV area I VMN bsa 1.51 cm2/m2 (test code = 3023573248) Calc MPHR (test code 165.01 bpm = 6154573080) IVS pct thck PLAX 39.76 % (test code = 8466712259) LV SI Cube 2D (test 33.91 ml/m2 code = 7103527168) LV SV Cube 2D (test 68.57 ml code = 8591035802) LV vol d cube 2D 106.56 ml (test code = 1891728495) LV vol s cube 2D 38.00 ml (test code = 9037140818) LVPW pct thck PLAX 35.24 % (test code = 5744375482) LVPW s PLAX (test 1.16 cm code = 6679911418) MV Decel slope (test 8.38 m/s2 code = 6292482634) Pred Exer Dur R1 9.48 (test code = 2858243726) Pred METS R1 (test 9.75 code = 2813606807) LA Vol MOD A4C (test 46.56 ml code = 4749024836) Velocity Ratio 0.80 m/s (V1/V2) (test code = 4689) EF (test code = 56 % 5788956155) E/A ratio (test code 0.85 = 4833004262) LVOT VTI (CM) (test 21.00 cm code = 4014830694) MOE (test code = MOE) Left Ventricle: [...] normal. Lab Interpretation Abnormal (test code = 31374-6) [facility] (w Contrast, Strain and 3D if needed)2022-05-10 21:23:23 Test Item Value Reference Interpretation Comments Range Ao Root Diameter 3.34 cm (test code = 0475817095) AoV Area, Vmax (test 3.02 cm2 >=1.5 code = 2751034196) AoV Area, VTI (test 3.07 cm2 code = 3463902364) AoV Mean PG (test 4.26 mmHg code = 2402151455) AoV Peak PG (test 6.38 mmHg code = 1222228387) AoV Vmax (test code 1.42 m/s = 6934479376) AoV VTI (test code = 0.26 m 7623461130) BSA Rashid (test code 2.11 m2 = 8573033665) BSA (test code = 2.02 m2 3487228764) IVS,d (test code = 0.84 cm 0.6-8 1263899341) IVS/LVPW,2D (test 0.98 code = 4455458098) Left Atrium 3.49 cm Dimension Anterior (test code = 0728564728) LV,d (test code = 4.74 cm 8276391019) LV EF,2D (test code 64.34 % = 0885288666) LV,s (test code = 3.36 cm 8835215607) LVOT area (test code 3.53 cm2 = 2931416626) LVOT Diam,S (test 2.12 cm code = 8936372068) LVOT Vmax (test code 1.13 m/s = 5779481242) LVOT VTI (test code 0.21 m = 2537826889) LVPWD,d (test code = 0.85 cm 0.60-1.19 7340722963) MV E A ratio (test 0.86 code = 5076490966) AoV area i VTI BSA 1.52 cm2/m2 >=0.85 [place] (test code = 2592289123) BMI (test code = 31.32 kg/m2 7780155166) E wave decelartion 89.56 See_Comment A [Automat ed time (test code = message] T he 7768727709) system which generated this result transmitted reference range : 200 msec. The reference range was not used to interpret this result as normal/abnormal . MV Peak A Quirino (test 0.88 m/s code = 4301892790) MV valve area p 1/2 8.47 cm2 method (test code = 4502271585) MV Peak E Quirino (test 0.75 m/s code = 5695206008) MV stenosis pressure 25.97 ms 1/2 time (test code = 6194739511) LVOT stroke volume 0.74 ml (test code = 7956393916) AV LVOT peak 4.69 mmHg gradient (test code = 8883383280) Ao Root Diameter 3.34 cm (test code = 1669986460) MV mean gradient 1.92 mmHg (test code = 9257722466) LV SYS VOL (test 46.16 ml 21-61 code = 1250800313) LV ANDERSON VOL (test 104.46 ml 62-150 code = 7943421075) LA area s A4C (test 17.60 cm2 code = 8516790691) LV SI Teich 2D (test 28.83 ml/m2 code = 9243074058) LV SV Teich 2D (test 58.30 ml code = 5929953948) LV Vol s Teich PSAX 46.16 ml (test code = 8408144000) LVOT CI (test code = 3.53 l/min/m2 5485635018) LVOT CO (test code = 7.14 l/min 9311159484) LVOT HR for LVOT CO 98.89 bpm (test code = 8268763680) LVOT SI (test code = 35.72 ml/m2 4538991520) MR peak grad (test 3.00 mmHg code = 2405444506) MV Vmax (test code = 0.87 m 5846948555) MV VTI Tips (test 0.14 m code = 8872494616) BSA Haycock (test 2.10 m2 code = 8378252440) AoV Vmn (test code = 0.97 m/s 0561390721) IVS s 2D (test code 1.17 cm = 6667758457) LV FS Teich 2D (test 29.09 code = 4299222659) MV AE ratio (test 1.17 code = 1467346028) LV FS Cube 2D (test 29.09 code = 6431632555) LVOT Vmn (test code 0.75 = 5627991177) Pt Size (test code = 170.18 1726019348) Pt Wt (test code = 90.72 6242513393) Aov area Vmn (test 3.05 cm2 code = 2130916019) LVOT mean grad (test 2.57 mmHg code = 1483167177) 85 of MPHR (test 140.25 code = 1511499496) AoV area I VMN bsa 1.51 cm2/m2 (test code = 2173935594) Calc MPHR (test code 165.01 bpm = 4717145264) IVS pct thck PLAX 39.76 % (test code = 7764295313) LV SI Cube 2D (test 33.91 ml/m2 code = 5946103515) LV SV Cube 2D (test 68.57 ml code = 4763590310) LV vol d cube 2D 106.56 ml (test code = 9550611840) LV vol s cube 2D 38.00 ml (test code = 5768057903) LVPW pct thck PLAX 35.24 % (test code = 8692524941) LVPW s PLAX (test 1.16 cm code = 4204620374) MV Decel slope (test 8.38 m/s2 code = 6342288970) Pred Exer Dur R1 9.48 (test code = 6303076019) Pred METS R1 (test 9.75 code = 2587262594) LA Vol MOD A4C (test 46.56 ml code = 6268721386) Velocity Ratio 0.80 m/s (V1/V2) (test code = 4689) EF (test code = 56 % 1247520895) E/A ratio (test code 0.85 = 4306484011) LVOT VTI (CM) (test 21.00 cm code = 3780705893) MOE (test code = MOE) Left Ventricle: [...] normal. Lab Interpretation Abnormal (test code = 76952-7) [facility] [Presence] in Respiratory specimen by LEILANI with probe [id number] 00:11:33 Test Item Value Reference Range Interpretation Comments SARS-CoV-2 (COVID-19) RNA Not detected [Presence] in Respiratory specimen by LEILANI with probe detection (test code = 38928-5) Whether patient is employed in a Unknown healthcare setting (test code = 43751-3) Whether the patient has symptoms Unknown related to condition of interest (test code = 14544-5) Whether the patient was Unknown hospitalized for condition of interest (test code = 53249-5) Whether the patient was admitted Unknown to intensive care unit (ICU) for condition of interest (test code = 95712-4) Whether patient resides in a Unknown congregate care setting (test code = 65913-8) status (test code = Unknown 32851-2) Date and time of symptom onset Unknown (test code = 34676-3) [facility] [id number] 20:52:15 Test Item Value Reference Range Interpretation Comments BSA (test code = 2.03 m2 9502457977) BSA Rashid (test code 2.12 m2 = 5403246640) BSA Haycock (test 2.11 m2 code = 7810041578) Pred METS R1 (test 9.76 code = 8317957417) Pred Exer Dur R1 9.48 (test code = 1190292766) Calc MPHR (test 165.06 bpm code = 1408747537) 85 of MPHR (test 140.30 code = 3770044543) Pt Wt (test code = 91.17 3271559336) Pt Size (test code 170.18 = 0435355616) BMI (test code = 31.48 kg/m2 8876247120) MOE (test code = MOE) Left Ventricle: [...] study. The probe was inserted by the water[employer] employee. There was no probe insertion difficulty. Anesthesia was given. Refer to anesthesia note. The patient tolerated the procedure well and recovered without any complications.Prior StudyThere were no significant changes noted when compared to the prior TTE study. [facility] [id number] 20:52:15 Test Item Value Reference Range Interpretation Comments BSA (test code = 2.03 m2 4324915231) BSA Rashid (test code 2.12 m2 = 1673594522) BSA Haycock (test 2.11 m2 code = 6130207374) Pred METS R1 (test 9.76 code = 8998055054) Pred Exer Dur R1 9.48 (test code = 4759015883) Calc MPHR (test 165.06 bpm code = 7565595262) 85 of MPHR (test 140.30 code = 0253321327) Pt Wt (test code = 91.17 9292500517) Pt Size (test code 170.18 = 6255046468) BMI (test code = 31.48 kg/m2 1224285829) MOE (test code = MOE) Left Ventricle: [...] study. The probe was inserted by the water[employer] employee. There was no probe insertion difficulty. Anesthesia was given. Refer to anesthesia note. The patient tolerated the procedure well and recovered without any complications.Prior StudyThere were no significant changes noted when compared to the prior TTE study. [facility] myocardial [id number] 21:20:55 Test Item Value Reference Range Interpretation Comments Target HR (test 166.00 bpm code = 3650842367) Resting HR (test 99 BPM code = 3889631772) Resting BP (test 112/70 mmHg code = 1276977598) O2 sat rest (test 99 % code = 1516631870) Post Peak HR (test 113 bpm code = 7363450891) Percent HR (test 68.07 % code = 3342673950) Post Peak BP (test 112/70 mmHg code = 6159871669) O2 sat peak (test 98 % code = 2508352205) Nuc Stress EF (test 63 % code = 0242880952) Radiology Study observation (narrative) (test code = 99661-9) MOE (test code = MOE) Conclusion: Abnormal [...] The resting administration time was at 10:07 ELECTRICAL FITTER on 04/17/2022. Resting images obtained at 11:22 ELECTRICAL FITTER. Images performed at stress after an injection of 30.5 mCi. The stress administration time was at 12:20 ELECTRICAL FITTER on 04/17/2022. Stress images obtained at 13:36 ELECTRICAL FITTER.Nuclear Study QualityA perfusion 1-day rest/stress protocol was [...] Scores: SDS Score: N/A Percentage Abnormal: N/A [facility] myocardial [id number] 21:20:55 Test Item Value Reference Range Interpretation Comments Target HR (test 166.00 bpm code = 5845959508) Resting HR (test 99 BPM code = 9715407033) Resting BP (test 112/70 mmHg code = 3432889189) O2 sat rest (test 99 % code = 1477717990) Post Peak HR (test 113 bpm code = 8029022615) Percent HR (test 68.07 % code = 9271078857) Post Peak BP (test 112/70 mmHg code = 6100745038) O2 sat peak (test 98 % code = 1966474971) Nuc Stress EF (test 63 % code = 4407407624) Radiology Study observation (narrative) (test code = 77043-4) MOE (test code = MOE) Conclusion: Abnormal [...] The resting administration time was at 10:07 ELECTRICAL FITTER on 04/17/2022. Resting images obtained at 11:22 ELECTRICAL FITTER. Images performed at stress after an injection of 30.5 mCi. The stress administration time was at 12:20 ELECTRICAL FITTER on 04/17/2022. Stress images obtained at 13:36 ELECTRICAL FITTER.Nuclear Study QualityA perfusion 1-day rest/stress protocol was [...] Scores: SDS Score: N/A Percentage Abnormal: N/A [facility] stress [id number] 21:15:16 Test Item Value Reference Range Interpretation Comments Resting HR (test code 99 = 0706204529) Resting BP (test code 112&70 = 5896370021) Peak MET Achieved 1.0 (test code = 8685170906) Protocol Name (test LEXISCAN code = 7755533858) Time in Exercise Phase 00:00:53 (test code = 3113279249) Max Systolic BP (test 112 code = 4830022138) Max Diastolic BP (test 70 code = 6534050972) Max Heart Rate (test 113 code = 7707787695) Max Predicted Heart 166 Rate (test code = 5788492010) Target HR Formula (220 - Age)*100% (test code = 6821769274) Test Indication (test code = 1204323916) Arrhy During Ex (test none code = 9636976319) ECG Interp Before EX atrial fibrillation (test code = 9391714970) ECG Interp During Ex NONSPECIFIC (test code = 4517437614) Ex Summary Comment Myoview to follow (test code = 9129248856) Chest Pain Statement none (test code = 2320189397) Overall HR Response to PHARMACOLOGIC STRESS Exercise (test code = 6253490432) Overall BP Response To normal resting BP - Exercise (test code = appropriate response 9307773821) Reason for Termination Protocol completed (test code = 4415917773) Stress Test Impression MYOVIEW TO (test code = FOLLOW--Electronically 4469032815) Signed By Jaspreet Cannon MD ([id number]) on 04/18/2022 3:15:13 PM [facility] stress [id number] 21:15:16 Test Item Value Reference Range Interpretation Comments Resting HR (test code 99 = 6344640072) Resting BP (test code 112&70 = 0245153436) Peak MET Achieved 1.0 (test code = 9052712518) Protocol Name (test LEXISCAN code = 0584068046) Time in Exercise Phase 00:00:53 (test code = 2103795335) Max Systolic BP (test 112 code = 2868260816) Max Diastolic BP (test 70 code = 5260276739) Max Heart Rate (test 113 code = 0940999496) Max Predicted Heart 166 Rate (test code = 3592805150) Target HR Formula (220 - Age)*100% (test code = 7612779678) Test Indication (test code = 1405376053) Arrhy During Ex (test none code = 0198335332) ECG Interp Before EX atrial fibrillation (test code = 6385113748) ECG Interp During Ex NONSPECIFIC (test code = 1290843064) Ex Summary Comment Myoview to follow (test code = 0911631666) Chest Pain Statement none (test code = 2487216939) Overall HR Response to PHARMACOLOGIC STRESS Exercise (test code = 3195061824) Overall BP Response To normal resting BP - Exercise (test code = appropriate response 7832478961) Reason for Termination Protocol completed (test code = 7352860405) Stress Test Impression MYOVIEW TO (test code = FOLLOW--Electronically 9499645273) Signed By Jaspreet Cannon MD ([id number]) on 04/18/2022 3:15:[address] [facility], (w Contrast, Strain and 3D if needed)2022-04-14 21:07:42 Test Item Value Reference Interpretation Comments Range EF (test code = 59 % 52-72 6984580550) LV EF,BP (test code 57.09 % = 4520668805) IVS,d (test code = 1.13 cm 0.6-1 A 0645509441) IVS s 2D (test code 1.32 cm = 9747596317) LVPWD,d (test code 1.09 cm 0.60-1.19 = 3083312929) LVPW s PLAX (test 1.37 cm code = 7200165618) LV,s (test code = 3.04 cm 0156359216) LVOT Diam,S (test 2.09 cm code = 6175950349) LV ANDERSON VOL (test 88.75 ml 62-150 code = 0015818873) LV SYS VOL (test 36.02 ml 21-61 code = 0816733543) LV Vol,d A2C (test 82.11 mL code = 3678971768) LV Vol,s A2C (test 34.60 mL code = 8689791581) LV Vol,d A4C (test 81.73 ml code = 2110422994) LV Vol,s A4C (test 37.26 ml code = 2820218980) MV Peak E Quirino (test 0.89 m/s code = 3400012610) MV Peak A Quirino (test 0.25 m/s code = 9203209586) E/A ratio (test 3.56 <=0.8 A code = 3564405614) E wave decelartion 177.02 See_Comment A [Automat ed time (test code = message] T he 8664458315) system which generated this result transmitted reference range: 200 msec. The reference range was not used to interpret this result as normal/abnormal . LV Systolic Volume 17.13 mL/m2 11-31 Index (test code = 4740687915) LV Diastolic Volume 40.65 mL/m2 34-74 Index (test code = 7594683078) LV,d (test code = 4.42 cm 1170573171) IVS/LVPW,2D (test 1.03 code = 1109242431) LV EF,2D (test code 67.66 % = 5587375023) LV FS Cube 2D (test 31.36 code = 4480841215) LV FS Teich 2D 31.36 (test code = 8385750544) LV SI Teich 2D 26.07 ml/m2 (test code = 4820688679) LV SV Teich 2D 52.72 ml (test code = 9710717676) LV Vol s Teich PSAX 36.02 ml (test code = 7744290410) LVOT stroke volume 0.48 cm3 (test code = 1225177092) Left Atrium 3.37 cm <=4 Dimension Anterior (test code = 7555441808) LA Vol MOD A4C 44.03 ml (test code = 7880611047) LA area s A4C (test 16.42 cm2 code = 7205873126) LVOT area (test 3.43 cm2 code = 8099911279) LVOT Vmax (test 0.86 m/s code = 9816920440) AoV Mean PG (test 3.31 See_Comment [Automate d code = 3023400193) message] The system which generated this result transmitted reference range: 20 mmHg. The reference range was not used to interpret this result as normal/abnormal . AoV Peak PG (test 4.75 mmHg code = 8605286440) AV LVOT peak 2.89 mmHg gradient (test code = 5356577380) AoV area i VTI BSA 1.33 cm2/m2 >=0.85 [place] (test code = 8512583951) AoV Area, Vmax 2.67 cm2 >=1.5 (test code = 1614631157) LVOT VTI (CM) (test 14.00 cm code = 5970997411) AoV Vmax (test code 1.11 m/s = 5089565256) AoV Vmn (test code 0.88 m/s = 8396918442) AoV Area, VTI (test 2.69 cm2 code = 7287634666) LVOT CO (test code 5.03 l/min = 8147868425) LVOT CI (test code 2.49 l/min/m2 = 4061846211) LVOT HR for LVOT CO 113.01 bpm (test code = 6288974481) LVOT SI (test code 22.01 ml/m2 = 8736249011) Velocity Ratio 0.77 m/s (V1/V2) (test code = 4689) MV stenosis 41.13 ms <=150 pressure 1/2 time (test code = 2372041292) MV E A ratio (test 6.25 code = 6401386747) MV valve area p 1/2 5.35 cm2 method (test code = 2352717660) E prime lat (test 0.04 code = 9736941877) E prime sept (test 0.03 code = 1192948391) RVOT Vmax (test 0.87 m/s code = 6077743171) PV Pk Grad (test 2.43 See_Comment [Automated code = 0011611097) message] The system which generated this result transmitted reference range: 36 mmHg. The reference range was not used to interpret this result as normal/abnormal . RVOT pk grad (test 3.02 mmHg code = 2999283217) PV VMAX (test code 0.78 m/s <=3 = 3884238093) Ao Root Diameter 2.77 cm <=3.99 (test code = 4819769497) Ao Root Diameter 2.77 cm (test code = 9296274874) Ascending aorta 2.95 cm (test code = 4119737538) BSA (test code = 2.02 m2 4752494332) BSA Rashid (test code 2.11 m2 = 7047751826) BSA Haycock (test 2.10 m2 code = 9839438807) Pred METS R1 (test 9.76 code = 3759783974) Pred Exer Dur R1 9.49 (test code = 7052097021) MV Decel slope 5.02 m/s2 (test code = 9992424916) LVPW pct thck PLAX 25.29 % (test code = 5866224570) LV vol s cube 2D 27.97 ml (test code = 9403267136) LV vol d cube 2D 86.49 ml (test code = 8055993893) LV SV Cube 2D (test 58.52 ml code = 3118774737) LV SI Cube 2D (test 28.94 ml/m2 code = 6819441748) IVS pct thck PLAX 16.96 % (test code = 5909890821) Calc MPHR (test 165.08 bpm code = 8201081048) AoV area I VMN bsa 1.20 cm2/m2 (test code = 2243447671) 85 of MPHR (test 140.32 code = 4363266437) RVOT VTI (test code 0.14 m = 4347662840) RVOT Vmn (test code 0.59 m/s = 8216620711) RVOT mean grad 1.54 mmHg (test code = 4045905821) LVOT mean grad 1.67 mmHg (test code = 6926093790) Aov area Vmn (test 2.42 cm2 code = 9707774781) Pt Wt (test code = 90.72 2333376691) Pt Size (test code 170.18 = 1353033797) MV AE ratio (test 0.16 code = 7862311386) LVOT Vmn (test code 0.61 = 3243668080) PV Vmn (test code = 17.84 m/s 6820681747) LV Vol Index s 41.57 ml/m2 bpmod BSA Jean Claude (test code = 5114749509) LV SI MOD BP BSA 23.73 ml/m2 [place] (test code = 1240039917) BMI (test code = 31.32 kg/m2 5868052943) LV Vol,s BP (test 36.07 nl code = 7973035170) LV Vol,d BP (test 84.05 ml code = 3181665109) LV SV,BP (test code 47.99 % = 0570088184) LV SV,A4C (test 44.47 % code = 9998175921) LV SV,A2C (test 47.51 % code = 9263980617) Gordo Peralta,s A4C 6.78 cm (test code = 8379203604) Gordo Peralta,s A2C 6.94 cm (test code = 7063992792) Gordo Peralta,d A4C 7.48 cm (test code = 0451813457) Gordo Peralta,d A2C 7.91 cm (test code = 2263626280) LV EF,A4C (test 54.41 % code = 8355996418) LV EF,A2C (test 57.86 % code = 7427727780) AoV VTI (test code 0.16 m = 6083000214) LVOT VTI (test code 0.14 m = 7537521631) MOE (test code = MOE) Left Ventricle: [...] status. Lab Interpretation Abnormal (test code = 93258-5) [facility], (w Contrast, Strain and 3D if needed)2022-04-14 21:07:42 Test Item Value Reference Interpretation Comments Range EF (test code = 59 % 52-72 6515085326) LV EF,BP (test code 57.09 % = 1117228436) IVS,d (test code = 1.13 cm 0.6-1 A 4705462668) IVS s 2D (test code 1.32 cm = 5399108847) LVPWD,d (test code 1.09 cm 0.60-1.19 = 6423225582) LVPW s PLAX (test 1.37 cm code = 7678310231) LV,s (test code = 3.04 cm 5843331983) LVOT Diam,S (test 2.09 cm code = 1569944104) LV ANDERSON VOL (test 88.75 ml 62-150 code = 2803321839) LV SYS VOL (test 36.02 ml 21-61 code = 5628080155) LV Vol,d A2C (test 82.11 mL code = 8857018182) LV Vol,s A2C (test 34.60 mL code = 3604798711) LV Vol,d A4C (test 81.73 ml code = 1675330759) LV Vol,s A4C (test 37.26 ml code = 9556423789) MV Peak E Quirino (test 0.89 m/s code = 4093745757) MV Peak A Quirino (test 0.25 m/s code = 1554943782) E/A ratio (test 3.56 <=0.8 A code = 4671267557) E wave decelartion 177.02 See_Comment A [Automat ed time (test code = message] T he 8906310600) system which generated this result transmitted reference range: 200 msec. The reference range was not used to interpret this result as normal/abnormal . LV Systolic Volume 17.13 mL/m2 11-31 Index (test code = 3080326266) LV Diastolic Volume 40.65 mL/m2 34-74 Index (test code = 2913105825) LV,d (test code = 4.42 cm 3728696261) IVS/LVPW,2D (test 1.03 code = 3157519437) LV EF,2D (test code 67.66 % = 9169660457) LV FS Cube 2D (test 31.36 code = 0845091349) LV FS Teich 2D 31.36 (test code = 0207789020) LV SI Teich 2D 26.07 ml/m2 (test code = 2655657497) LV SV Teich 2D 52.72 ml (test code = 7062115122) LV Vol s Teich PSAX 36.02 ml (test code = 1008317674) LVOT stroke volume 0.48 cm3 (test code = 4708978007) Left Atrium 3.37 cm <=4 Dimension Anterior (test code = 7678450008) LA Vol MOD A4C 44.03 ml (test code = 6500231132) LA area s A4C (test 16.42 cm2 code = 4428922179) LVOT area (test 3.43 cm2 code = 5226954203) LVOT Vmax (test 0.86 m/s code = 3724416097) AoV Mean PG (test 3.31 See_Comment [Automate d code = 9308856169) message] The system which generated this result transmitted reference range: 20 mmHg. The reference range was not used to interpret this result as normal/abnormal . AoV Peak PG (test 4.75 mmHg code = 8726456732) AV LVOT peak 2.89 mmHg gradient (test code = 7255714899) AoV area i VTI BSA 1.33 cm2/m2 >=0.85 [place] (test code = 4578291298) AoV Area, Vmax 2.67 cm2 >=1.5 (test code = 8968462091) LVOT VTI (CM) (test 14.00 cm code = 3128359471) AoV Vmax (test code 1.11 m/s = 8583423472) AoV Vmn (test code 0.88 m/s = 4103285051) AoV Area, VTI (test 2.69 cm2 code = 7617478923) LVOT CO (test code 5.03 l/min = 5472347578) LVOT CI (test code 2.49 l/min/m2 = 6299466259) LVOT HR for LVOT CO 113.01 bpm (test code = 1080364652) LVOT SI (test code 22.01 ml/m2 = 5830746842) Velocity Ratio 0.77 m/s (V1/V2) (test code = 4689) MV stenosis 41.13 ms <=150 pressure 1/2 time (test code = 2689349148) MV E A ratio (test 6.25 code = 3431114544) MV valve area p 1/2 5.35 cm2 method (test code = 2950831883) E prime lat (test 0.04 code = 6668892820) E prime sept (test 0.03 code = 7112655514) RVOT Vmax (test 0.87 m/s code = 3018214908) PV Pk Grad (test 2.43 See_Comment [Automated code = 3907472531) message] The system which generated this result transmitted reference range: 36 mmHg. The reference range was not used to interpret this result as normal/abnormal . RVOT pk grad (test 3.02 mmHg code = 9486346071) PV VMAX (test code 0.78 m/s <=3 = 0222619346) Ao Root Diameter 2.77 cm <=3.99 (test code = 5632642943) Ao Root Diameter 2.77 cm (test code = 7968749226) Ascending aorta 2.95 cm (test code = 9633407991) BSA (test code = 2.02 m2 9371550888) BSA Rashid (test code 2.11 m2 = 9225699117) BSA Haycock (test 2.10 m2 code = 4912738558) Pred METS R1 (test 9.76 code = 9592091488) Pred Exer Dur R1 9.49 (test code = 0654274318) MV Decel slope 5.02 m/s2 (test code = 6857708470) LVPW pct thck PLAX 25.29 % (test code = 7743373052) LV vol s cube 2D 27.97 ml (test code = 6529409471) LV vol d cube 2D 86.49 ml (test code = 9180469838) LV SV Cube 2D (test 58.52 ml code = 2388318814) LV SI Cube 2D (test 28.94 ml/m2 code = 7078343956) IVS pct thck PLAX 16.96 % (test code = 0022828584) Calc MPHR (test 165.08 bpm code = 8962906364) AoV area I VMN bsa 1.20 cm2/m2 (test code = 3611220908) 85 of MPHR (test 140.32 code = 2495337936) RVOT VTI (test code 0.14 m = 6195540907) RVOT Vmn (test code 0.59 m/s = 4705087405) RVOT mean grad 1.54 mmHg (test code = 2582180199) LVOT mean grad 1.67 mmHg (test code = 6834261133) Aov area Vmn (test 2.42 cm2 code = 2073294473) Pt Wt (test code = 90.72 2531661402) Pt Size (test code 170.18 = 9664294336) MV AE ratio (test 0.16 code = 4791498325) LVOT Vmn (test code 0.61 = 9628743329) PV Vmn (test code = 17.84 m/s 2665315077) LV Vol Index s 41.57 ml/m2 bpmod BSA [place] (test code = 8317392924) LV SI MOD BP BSA 23.73 ml/m2 Jean Claude (test code = 3503826171) BMI (test code = 31.32 kg/m2 9579477324) LV Vol,s BP (test 36.07 nl code = 9496137715) LV Vol,d BP (test 84.05 ml code = 8420483864) LV SV,BP (test code 47.99 % = 2605651980) LV SV,A4C (test 44.47 % code = 6080453783) LV SV,A2C (test 47.51 % code = 1468519275) Gordo Peralta,s A4C 6.78 cm (test code = 4744376136) Gordo Peralta,s A2C 6.94 cm (test code = 2693506028) Gordo Peralta,d A4C 7.48 cm (test code = 5908835041) Gordo Peralta,d A2C 7.91 cm (test code = 0050010829) LV EF,A4C (test 54.41 % code = 4173338222) LV EF,A2C (test 57.86 % code = 9739545238) AoV VTI (test code 0.16 m = 5886484117) LVOT VTI (test code 0.14 m = 5286888738) MOE (test code = MOE) Left Ventricle: [...] status. Lab Interpretation Abnormal (test code = 70943-6) Kaushik GrantARS-CoV-2 (COVID-19) RNA [Presence] in Respiratory specimen by LEILANI with probe [id number] 05:21:05 Test Item Value Reference Range Interpretation Comments SARS-CoV-2 (COVID-19) RNA Not detected [Presence] in Respiratory specimen by LEILANI with probe detection (test code = 80656-0) Whether patient is employed in a Unknown healthcare setting (test code = 55848-9) Whether the patient has symptoms Unknown related to condition of interest (test code = 98231-8) Whether the patient was Unknown hospitalized for condition of interest (test code = 86414-7) Whether the patient was admitted Unknown to intensive care unit (ICU) for condition of interest (test code = 98851-4) Whether patient resides in a Unknown congregate care setting (test code = 41668-9) status (test code = Unknown 48020-1) Date and time of symptom onset Unknown (test code = 24061-5) [facility] ED Preliminary Interpretation - Not an [id number] 21:56:45 Test Item Value Reference Range Interpretation Comments MOE (test code = MOE) Fortino Lozano MD 04/12/2022 9:18 [facility] ED Preliminary Interpretation - Not an OrderPerformed by: Fortino Lozano MDAuthorized by: Fortino Lozano MD ECG reviewed by ED Physician in the absence of a waterworks employee: yes Interpretation: Interpretation: abnormal Rate: ECG rate: 116 ECG rate assessment: tachycardic Rhythm: Rhythm: sinus tachycardia Ectopy: Ectopy: none QRS: QRS axis: Left QRS intervals: NormalConduction: Conduction: abnormal Abnormal conduction: complete RBBB ST segments: ST segments: NormalT waves: T waves: normal Comments: Similar to 10/10 Lab Interpretation Abnormal (test code = 70596-9) [facility] ED Preliminary Interpretation - Not an [id number] 21:56:45 Test Item Value Reference Range Interpretation Comments MOE (test code = MOE) Fortino Lozano MD 04/12/2022 9:18 [facility] ED Preliminary Interpretation - Not an OrderPerformed by: Fortino Lozano MDAuthorized by: Fortino Lozano MD ECG reviewed by ED Physician in the absence of a waterworks employee: yes Interpretation: Interpretation: abnormal Rate: ECG rate: 116 ECG rate assessment: tachycardic Rhythm: Rhythm: sinus tachycardia Ectopy: Ectopy: none QRS: QRS axis: Left QRS intervals: NormalConduction: Conduction: abnormal Abnormal conduction: complete RBBB ST segments: ST segments: NormalT waves: T waves: normal Comments: Similar to 10/10 Lab Interpretation Abnormal (test code = 45957-1) [facility] ED Preliminary Interpretation - Not an [id number] 21:56:45 Test Item Value Reference Range Interpretation Comments MOE (test code = MOE) Fortino Lozano MD 04/12/2022 9:18 [facility] Preliminary Interpretation - Not an OrderPerformed by: Fortino Lozano MDAuthorized by: Fortino Lozano MD ECG reviewed by ED Physician in the absence of a waterworks employee: yes Interpretation: Interpretation: abnormal Rate: ECG rate: 116 ECG rate assessment: tachycardic Rhythm: Rhythm: sinus tachycardia Ectopy: Ectopy: none QRS: QRS axis: Left QRS intervals: NormalConduction: Conduction: abnormal Abnormal conduction: complete RBBB ST segments: ST segments: NormalT waves: T waves: normal Comments: Similar to 10/10 Lab Interpretation Abnormal (test code = 12476-3) [facility] ED Preliminary Interpretation - Not an [id number] 21:56:45 Test Item Value Reference Range Interpretation Comments MOE (test code = MOE) Fortino Lozano MD 04/12/2022 9:18 [facility] Preliminary Interpretation - Not an OrderPerformed by: Fortino Lozano MDAuthorized by: Fortino Lozano MD ECG reviewed by ED Physician in the absence of a waterworks employee: yes Interpretation: Interpretation: abnormal Rate: ECG rate: 116 ECG rate assessment: tachycardic Rhythm: Rhythm: sinus tachycardia Ectopy: Ectopy: none QRS: QRS axis: Left QRS intervals: NormalConduction: Conduction: abnormal Abnormal conduction: complete RBBB ST segments: ST segments: NormalT waves: T waves: normal Comments: Similar to 10/10 Lab Interpretation Abnormal (test code = 79886-9) [facility] - Not an [id number] 21:56:45 Test Item Value Reference Range Interpretation Comments MOE (test code = MOE) Fortino Lozano MD 04/12/2022 9:18 [facility] Preliminary Interpretation - Not an OrderPerformed by: Fortino Lozano MDAuthorized by: Fortino Lozano MD ECG reviewed by ED Physician in the absence of a waterworks employee: yes Interpretation: Interpretation: abnormal Rate: ECG rate: 116 ECG rate assessment: tachycardic Rhythm: Rhythm: sinus tachycardia Ectopy: Ectopy: none QRS: QRS axis: Left QRS intervals: NormalConduction: Conduction: abnormal Abnormal conduction: complete RBBB ST segments: ST segments: NormalT waves: T waves: normal Comments: Similar to 10/10 Lab Interpretation Abnormal (test code = 93169-6) [facility] ED Preliminary Interpretation - Not an [id number] 21:56:45 Test Item Value Reference Range Interpretation Comments MOE (test code = MOE) Fortino Lozano MD 04/12/2022 9:18 [facility] Preliminary Interpretation - Not an OrderPerformed by: Fortino Lozano MDAuthorized by: Fortino Lozano MD ECG reviewed by ED Physician in the absence of a waterworks employee: yes Interpretation: Interpretation: abnormal Rate: ECG rate: 116 ECG rate assessment: tachycardic Rhythm: Rhythm: sinus tachycardia Ectopy: Ectopy: none QRS: QRS axis: Left QRS intervals: NormalConduction: Conduction: abnormal Abnormal conduction: complete RBBB ST segments: ST segments: NormalT waves: T waves: normal Comments: Similar to 10/10 Lab Interpretation Abnormal (test code = 95059-9) [facility] [Presence] in Respiratory specimen by ELILANI with probe [id number] 10:09:09 Test Item Value Reference Range Interpretation Comments SARS-CoV-2 (COVID-19) RNA Not detected [Presence] in Respiratory specimen by LEILANI with probe detection (test code = 07753-6) Whether patient is employed in a Unknown healthcare setting (test code = 09019-5) Whether the patient has symptoms Unknown related to condition of interest (test code = 34091-9) Whether the patient was Unknown hospitalized for condition of interest (test code = 02373-9) Whether the patient was admitted Unknown to intensive care unit (ICU) for condition of interest (test code = 28997-6) Whether patient resides in a Unknown congregate care setting (test code = 95647-6) status (test code = Unknown 38378-0) Date and time of symptom onset Unknown (test code = 18080-3) [facility] 08:07[facility]00 Test Item Value Reference Range Interpretation Comments GLUBED (test code = 170 mg/dL 74-106 H Performe d by certified GLUBED) winder operator at [facility] [id number] 21:00:00 Test Item Value Reference Range Interpretation Comments GLUBED (test code = 185 mg/dL 74-106 H Performe d by certified GLUBED) winder operator at [facility] [id number] 15:40:00 Test Item Value Reference Range Interpretation Comments GLUBED (test code = 167 mg/dL 74-106 H Performe d by certified GLUBED) winder operator at [facility] [id number] 11:13:00 Test Item Value Reference Range Interpretation Comments GLUBED (test code = 212 mg/dL 74-106 H Performe d by certified GLUBED) winder operator at [facility] [id number] 08:09:00 Test Item Value Reference Range Interpretation Comments GLUBED (test code = 91 mg/dL 74-106 N Performe d by certified GLUBED) winder operator at [facility] [id number] 20:51:00 Test Item Value Reference Range Interpretation Comments GLUBED (test code = 155 mg/dL 74-106 H Performe d by certified GLUBED) winder operator at [facility] [id number] 15:53:00 Test Item Value Reference Range Interpretation Comments GLUBED (test code = 130 mg/dL 74-106 H Performe d by certified GLUBED) winder operator at [facility] [id number] 11:15:00 Test Item Value Reference Range Interpretation Comments GLUBED (test code = 195 mg/dL 74-106 H Performe d by certified GLUBED) winder operator at [facility] [id number] 07:48:00 Test Item Value Reference Range Interpretation Comments GLUBED (test code = 142 mg/dL 74-106 H Performe d by certified GLUBED) winder operator at [facility] BASIC METABOLIC [id number] 07:09:00 Test Item Value Reference Range Interpretation [...] Modifi ed MDRD (test code = GFR) formula.[facility] kidney disease is defined as eith er kidney damageor GFR <60 mL/min/1.73 m2 for >3 months. [Automated mess age] The system [employer] generated this result transmitted ref erence range: >=60. Th e reference range was not used to int erpret this result as normal/abnormal . CREATININE (test 0.80 mg/dL 0.7-1.3 N code = CREAT) BUN/CREATININE RATIO 7.6 10-20 L (test code = BUN/CREA) CALCIUM (test code = 8.6 mg/dL 8.5-10.1 N CA) CBC W/AUTO [id number] 06:52:00 Test Item Value Reference Range Interpretation [...] DIFF REQUIRED (test code NO = MDIFF) [id number] 20:15:00 Test Item Value Reference Range Interpretation Comments GLUBED (test code = 227 mg/dL 74-106 H Performe d by certified GLUBED) winder operator at [facility]2022-09-14 15:49:00 Test Item Value Reference Range Interpretation Comments GLUBED (test code = 191 mg/dL 74-106 H Performe d by certified GLUBED) winder operator at [facility]2022-09-14 10:43:00 Test Item Value Reference Range Interpretation Comments GLUBED (test code = 362 mg/dL 74-106 H Performe d by certified GLUBED) winder operator at [facility]2022-09-14 08:01:00 Test Item Value Reference Range Interpretation Comments GLUBED (test code = 203 mg/dL 74-106 H Performe d by certified GLUBED) winder operator at [facility] BASIC METABOLIC [id number] 02:21:00 Test Item Value Reference Range Interpretation [...] >3 months. [Automated mess age] The system [employer] generated this result transmitted ref erence range: >=60. Th e reference range was not used to int erpret this result as normal/abnormal . CREATININE (test 0.70 mg/dL 0.7-1.3 N code = CREAT) BUN/CREATININE RATIO 11.6 10-20 N (test code = BUN/CREA) CALCIUM (test code = 8.2 mg/dL 8.5-10.1 L CA) CBC W/AUTO [id number] 02:17:00 Test Item Value Reference Range Interpretation [...] = 0.00 K/mm3 0.0-0.1 N NRBC#) VANCOMYCIN [id number] 22:07:00 Test Item Value Reference Range Interpretation Comments VANCOMYCIN TROUGH (test code = 10.5 ug/mL 10-20 N VANCT) [id number] 20:15:00 Test Item Value Reference Range Interpretation Comments GLUBED (test code = 185 mg/dL 74-106 H Performe d by certified GLUBED) winder operator at [facility] [id number] 16:48:00 Test Item Value Reference Range Interpretation Comments GLUBED (test code = 280 mg/dL 74-106 H Performe d by certified GLUBED) winder operator at [facility] [id number] 13:00:00 Test Item Value Reference Range Interpretation Comments GLUBED (test code = 226 mg/dL 74-106 H Performe d by certified GLUBED) winder operator at [facility] [id number] 11:29:00 Test Item Value Reference Range Interpretation Comments GLUBED (test code = 246 mg/dL 74-106 H Performe d by certified GLUBED) winder operator at [facility] [id number] 10:34:00 Test Item Value Reference Range Interpretation Comments GLUBED (test code = 227 mg/dL 74-106 H Performe d by certified GLUBED) winder operator at [facility] [id number] 10:34:00 Test Item Value Reference Range Interpretation Comments GLUBED (test code = 256 mg/dL 74-106 H Performe d by certified GLUBED) winder operator at [facility] [id number] 10:34:00 Test Item Value Reference Range Interpretation Comments GLUBED (test code = 213 mg/dL 74-106 H Performe d by certified GLUBED) winder operator at [facility] [id number] 03:23:00 Test Item Value Reference Range Interpretation [...] is a direct measurement.=== ====== BASIC METABOLIC [id number] 18:01:00 Test Item Value Reference Range Interpretation [...] >3 months. [Automated mess age] The system [employer] generated this result transmitted ref erence range: >=60. Th e reference range was not used to int erpret this result as normal/abnormal . CREATININE (test 0.80 mg/dL 0.7-1.3 N code = CREAT) BUN/CREATININE RATIO 14.1 10-20 N (test code = BUN/CREA) CALCIUM (test code = 8.3 mg/dL 8.5-10.1 L CA) [id number] 18:01:00 Test Item Value Reference Range Interpretation Comments PHOSPHORUS (test code = PHOS) 2.8 mg/dL 2.5-4.9 N [id number] 18:01:00 Test Item Value Reference Range Interpretation Comments MAGNESIUM (test code = MAG) 1.7 mg/dL 1.8-2.4 L THYROID STIMULATING [id number] 18:01:00 Test Item Value Reference Range Interpretation Comments THYROID STIMULATING 0.667 uIU/mL 0.36-3.74 N TSH REFE RENCE HORMONE (test code = RANGES: EUTHYROID: TSH) 0.35 - 4.3 mIU/ mL HYPO : > 5.5 mI U/mL HYPER : < 0.35 mIU/mL CBC W/AUTO [id number] 18:00:00 Test Item Value Reference Range Interpretation [...] = 0.00 K/mm3 0.0-0.1 N NRBC#) LACTIC [id number] 14:22:00 Test Item Value Reference Range Interpretation Comments LACTIC ACID (test code = LACT) 1.3 mmol/L 0.4-1.9 N - XR TIBIA/FIBULA 2 V [id number] 12:37:00 [facility]Name: HARJINDER COLUNGA DOB: 1965 Sex: M FAX: Jerry Roa MD [phone] [place]: St: REG Name: HARJINDER COLUNGA [facility] : 1965 Age/S: 56/M [address] [facility] Unit #: [id number] Loc: [place] [address] Phys: Jerry Roa MD Acct: [id number] Dis Date: Status: REG ER PHONE #: [phone] Exam Date: 12/31/2021 1226 FAX #: [phone] Reason: leg redness EXAMS: CPT CODE: [id number] XR TIBIA/FIBULA 2 [place] [address] REASON FOR EXAM: leg redness EXAM ORDER [...] Correlate with physical exam. Location: [facility] at 1237 Reported and signed by: Magan Rae MD CC: Jerry Roa MD Technologist: FORTINO SOSA RT(R) Trnscrd Date/Time/By: 12/31/2021 (8028) : By: [email or web address] Orig Print D/T: S: 12/31/2021 (5172) PAGE 1 Signed Report- XR KNEE 3 V [id number] 12:37:00 [facility] : 1965 Sex: M FAX: Jerry Roa MD [phone] [place]: B St: REG Name: HARJINDER COLUNGA [facility] : 1965 Age/S: 56/M [address] [facility] Unit #: [id number] Loc: [place] [address] Phys: Jerry Roa MD Acct: [id number] Dis Date: Status: REG ER PHONE #: [phone] Exam Date: 12/31/2021 1226 FAX #: [phone] Reason: leg redness EXAMS: CPT CODE: [id number] XR KNEE 3 V LT [address] REASON FOR EXAM: leg redness EXAM ORDER [...] Correlate with physical exam. Location: [facility] at 1237 Reported and signed by: Magan Rae MD CC: Jerry Roa MD Technologist: RT STEFFANY(R) Trnscrd Date/Time/By: 12/31/2021 (8248) : By: [email or web address] Orig Print D/T: S: 12/31/2021 (8063) PAGE 1 Signed ReportBASIC METABOLIC [id number] 12:10:00 Test Item Value Reference Range Interpretation [...] GLOMERULAR FILTRATION > 60 mL/min See_Comment Estima yaan GFR by RATE (test code = using Bear fied MDRD GFR) formula.Chronic kidney disease is defined as eith er kidney damageor GFR <60 mL/min/1.73 m2 for >3 months. [Automated mess age] The system [employer] generated this result transmitted ref erence range: >=60. Th e reference range was not used to int erpret this result as normal/abnormal . CREATININE (test code 1.00 mg/dL 0.7-1.3 N = CREAT) BUN/CREATININE RATIO 10.8 10-20 N (test code = BUN/CREA) CALCIUM (test code = 8.8 mg/dL 8.5-10.1 N CA) HEPATIC FUNCTION [id number] 12:10:00 Test Item Value Reference Range Interpretation [...] due ALKP) to change in reagent. LACTIC [id number] 12:08:00 Test Item Value Reference Range Interpretation Comments LACTIC ACID (test 2.1 mmol/L 0.4-1.9 HH Results ca lled to code = LACT) IJS1981 by [facility] 4988 12/31/21 1208Cr itical results verifie d and read back by Nu rse? Y FOR ALL ICU PATIENT EXCLUDING HOLD PLEASE CALL [phone] CBC W/AUTO [id number] 11:58:00 Test Item Value Reference Range Interpretation [...] = 0.00 K/mm3 0.0-0.1 N NRBC#) POC [id number] 16:17:00 Test Item Value Reference Range Interpretation Comments POC glucose (test code 238 mg/dL 65-100 H Opera tor Name: Sherice = [id number]) FrancoDevice ID : [id number] Lab Interpretation Abnormal (test code = 07230-0) [facility] [id number] 16:17:00 Test Item Value Reference Range Interpretation Comments POC glucose (test code 238 mg/dL 65-100 H Opera tor Name: Sherice = 45156-4) FrancoDevice ID : [id number] Lab Interpretation Abnormal (test code = 65365-4) [facility]2022-08-24 11:12:00 Test Item Value Reference Range Interpretation Comments Urine culture Mixed yadi Specimen isolate (test <=10-3 col/cc InformationSp ecimen code = 37329-2) Source: [facility] Site: [facility]2022-08-24 11:12:00 Test Item Value Reference Range Interpretation Comments Urine culture Mixed yadi Specimen isolate (test <=10-3 col/cc InformationSp ecimen code = 11100-3) Source: [facility] Site: [facility]2022-08-24 11:12:00 Test Item Value Reference Range Interpretation Comments Urine culture Mixed yadi Specimen isolate (test <=10-3 col/cc InformationSp ecimen code = 26396-2) Source: [facility] Site: [facility]2022-08-24 11:12:00 Test Item Value Reference Range Interpretation Comments Urine culture Mixed yadi Specimen isolate (test <=10-3 col/cc InformationSp ecimen code = 68301-8) Source: [facility] Site: [facility]2022-08-24 11:12:00 Test Item Value Reference Range Interpretation Comments Urine culture Mixed yadi Specimen isolate (test <=10-3 col/cc InformationSp ecimen code = 92579-9) Source: [facility] Site: [facility]2022-08-24 11:12:00 Test Item Value Reference Range Interpretation Comments Urine culture Mixed yadi Specimen isolate (test <=10-3 col/cc InformationSp ecimen code = 43360-3) Source: [facility]rin eSpecimen Site: [facility] [id number] 11:12:00 Test Item Value Reference Range Interpretation Comments Urine culture Mixed yadi Specimen isolate (test <=10-3 col/cc InformationSp ecimen code = 80462-9) Source: [facility]rin eSpecimen Site: [facility] [id number] 11:12:00 Test Item Value Reference Range Interpretation Comments Urine culture Mixed yadi Specimen isolate (test <=10-3 col/cc InformationSp ecimen code = 04507-3) Source: [facility]Specimen [facility] RNA [Presence] in Respiratory specimen by LEILANI with probe [id number] 06:28:40 Test Item Value Reference Range Interpretation Comments SARS-CoV-2 (COVID-19) RNA Not detected [Presence] in Respiratory specimen by LEILANI with probe detection (test code = 79989-9) Whether patient is employed in a Unknown healthcare setting (test code = 63948-5) Whether the patient has symptoms Unknown related to condition of interest (test code = 08807-6) Whether the patient was Unknown hospitalized for condition of interest (test code = 29829-3) Whether the patient was admitted Unknown to intensive care unit (ICU) for condition of interest (test code = 46990-1) Whether patient resides in a Unknown congregate care setting (test code = 87116-7) status (test code = Unknown 22430-0) Date and time of symptom onset Unknown (test code = 80964-8) [facility] 12 [id number] 16:49:51 Test Item Value Reference Range Interpretation Comments Ventricular rate (test code = 253) Atrial rate (test code = 255) WA interval (test code = 266) QRSD interval [...] for Inferior infarct are no longer present- [facility] 12 [id number] 16:49:51 Test Item Value Reference Range Interpretation Comments Ventricular rate (test code = 253) Atrial rate (test code = 255) WA interval (test code = 266) QRSD interval [...] for Inferior infarct are no longer present- [facility] ED Preliminary Interpretation - Not an [id number] 04:49:00 Test Item Value Reference Range Interpretation Comments MOE (test code = MOE) Norberto Lanier FNP 10/11/2021 11:48 [facility] ED Preliminary Interpretation - Not an OrderPerformed by: Norberto Lanier FNPAuthorized by: Fahad Anna MD ECG reviewed by ED Physician in the absence of a waterworks employee: yes Interpretation: Interpretation: abnormal Rate: ECG rate: 83 ECG rate assessment: normal Rhythm: Rhythm: sinus rhythm Ectopy: Ectopy: none QRS: QRS axis: Normal QRS intervals: WideConduction: Conduction: abnormal Abnormal conduction: complete RBBB and LAFB ST segments: ST segments: NormalT waves: T waves: non-specific Lab Interpretation Abnormal (test code = 05111-8) [facility] Interpretation - Not an [id number] 04:49:00 Test Item Value Reference Range Interpretation Comments MOE (test code = MOE) Norberto Lanier FNP 10/11/2021 11:48 [facility] ED Preliminary Interpretation - Not an OrderPerformed by: Norberto Lanier FNPAuthorized by: Fahad Anna MD ECG reviewed by ED Physician in the absence of a waterworks employee: yes Interpretation: Interpretation: abnormal Rate: ECG rate: 83 ECG rate assessment: normal Rhythm: Rhythm: sinus rhythm Ectopy: Ectopy: none QRS: QRS axis: Normal QRS intervals: WideConduction: Conduction: abnormal Abnormal conduction: complete RBBB and LAFB ST segments: ST segments: NormalT waves: T waves: non-specific Lab Interpretation Abnormal (test code = 34818-2) [place] [id number] 18:34:00 Test Item Value Reference Range Interpretation Comments GLUBED (test code = 316 mg/dL 74-106 H Performe d by certified GLUBED) winder operator at [facility] URINALYSIS [id number] 17:45:00 Test Item Value Reference Range Interpretation [...] Urine Source? Clean CatchDRUGS OF ABUSE SCREEN [id number] 17:45:00 Test Item Value Reference Range Interpretation Comments UR MDMA (test code = NEGATIVE NEGATIVE MDMAQLU) URN COCAINE (test code = NEGATIVE NEGATIVE [A utomated message] COCAURN) The system [employer] generated this result transmitted ref erence range: [...] NEGATIVE [A utomated message] OPIATURN) The system [employer] generated this result transmitted ref erence range: [...] [A utomated message] = METHAURN) The system [employer] generated this result transmitted ref erence range: <300 ng/ mL. The reference r maggi was not used to interpret this result as normal/abnor mal. Urine Source? Clean CatchBASIC METABOLIC [id number] 16:11:00 Test Item Value Reference Range Interpretation [...] >3 months. [Automated mess age] The system [employer] generated this result transmitted ref erence range: >=60. Th e reference range was not used to int erpret this result as normal/abnormal . CREATININE (test code 0.99 mg/dL 0.55-1.3 N = CREAT) BUN/CREATININE RATIO 15.2 10-20 N (test code = BUN/CREA) CALCIUM (test code = 8.1 mg/dL 8.0-10.5 N CA) [id number] 16:11:00 Test Item Value Reference Range Interpretation Comments TROPONIN-HS (test 5.1 pg/mL 0-60 N CAUTION: U nits of the code = TROPI) current test m ethodology (pg/mL)differ f rom the prior test meth odology (ng/mL) by a fa ctorof 1000. [id number] 16:11:00 Test Item Value Reference Range Interpretation [...] QUESTED BY THE PHYSICIAN A T ANADDITIONAL ARGE TO THE PATIENT. CBC W/O [id number] 15:42:00 Test Item Value Reference Range Interpretation [...] N = MPV) - XR CHEST 1 [id number] 15:42:00 [facility])Name: HARJINDER COLUNGA : 1965 Sex: M FAX: Brennan Dupont [phone] [place]: ID St: PRE Name: HARJINDER COLUNGA [facility] FSED : 1965 Age/S: 56/M [address] [facility] N Unit #: [id number] Loc: [facility] [address] Phys: Brennan Dupont MD [place], [place] [address] Acct: [id number] Dis Date: Status: PRE ER PHONE #: Exam Date: 08/06/2021 1541 FAX #: Reason: WEAKNESS EXAMS: CPT CODE: [id number] XR CHEST 1 V 29288 REASON FOR EXAM: WEAKNESS Exam Order Date: 08/06/2021 3:22 PM Ordering M.DTish: Brennan Dupont MD PROCEDURE: - XR CHEST [...] No acute cardiopulmonary process. Location: [facility] at 1542 Reported and signed by: Ramu Ramos M.D. CC: Brennan Dupont MD Technologist: Jonathan Herndon RT(R)(CT) Trnscrd Date/Time/By: 08/06/2021 (1542) : By: [email or web address] Orig Print D/T: S: 08/06/2021 (7657) PAGE 1 Signed ReportLone Star Glucose -- Point of Care Meters (33562) 2021-06-29 00:00:00 Test Item Value Reference Range Interpretation Comments BLOOD GLUCOSE-HOME MONITOR (test code = 266 70-110 A 85964-8) [id number] 16:34:00 Test Item Value Reference Range Interpretation Comments TROPONIN-I (test code = TROPI) <0.015 ng/mL 0.00-0.056 N URINALYSIS [id number] 15:41:00 Test Item Value Reference Range Interpretation [...] HPF NONE BACU) Urine Source? Clean CatchURINALYSIS [id number] 15:39:00 Test Item Value Reference Range Interpretation [...] Urine Source? Clean Catch- CT HEAD/BRAIN W/O [id number] 13:23:00 [facility])Name: HARJINDER COLUNGA : 1965 Sex: M Name: HARJINDER COLUNGA [facility] FSED : 1965 Age/S: 55 / M [address] [facility] N Unit #: [id number] Loc: [address] Phys: Jerry Roa MD [place], [place] [address] Acct: [id number] Dis Date: Status: REG ER PHONE #: Exam Date: 12/24/2020 1305 FAX #: Reason: dizzy EXAMS: CPT CODE: [id number] CT HEAD/BRAIN W/O CONT 94634 HISTORY: dizzy TECHNIQUE: Noncontrast 2.[address] of the head.Examination acquired within 24 hours of arrival. One or more of the following dose reduction techniques were used: Automated exposure control, adjustment of the mA and/or kV according to patient size, and/or utilization of iterative reconstruction technique. DLP 574 mGy-cm. COMPARISON: 12/12/14 FINDIN GS: No acute hemorrhage. No CT evidence of [...] LP at 1323 Reported and signed by: Noa Tuttle PAGE 1 Signed Report (CONTINUED) Name: HARJINDER COLUNGA [facility] FSED : 1965 Age/S: 55 / M [address] [facility] Unit #: [id number] Loc: [address] Phys: Jerry Roa MD [place], [place] [address] Acct: [id number] Dis Date: Status: REG ER PHONE #: Exam Date: 12/24/2020 1305 FAX #: Reason: dizzy EXAMS: CPT CODE: [id number] CT HEAD/BRAIN W/O CONT 17042 (Continued) CC: Hermelindo Roa Technologist:Vicky Saba RT(R)(CT) CTDI: DLP: Trnscb Date/Time: 12/24/2020 (1323) BradyP1 Orig Print D/T: S: 12/24/2020 (1326) PAGE 2 Signed ReportBASIC METABOLIC [id number] 12:45:00 Test Item Value Reference Range Interpretation [...] ed MDRD (test code = GFR) formula.[facility] kidney disease is defined as eith er kidney damageor GFR <60 mL/min/1.73 m2 for >3 months. [Automated mess age] The system [employer] generated this result transmitted ref erence range: >=60. Th e reference range was not used to int erpret this result as normal/abnormal . CREATININE (test 0.77 mg/dL 0.55-1.3 N code = CREAT) BUN/CREATININE RATIO 20.8 - H (test code = BUN/CREA) CALCIUM (test code = 8.1 mg/dL 8.0-10.5 N CA) [id number] 12:45:00 Test Item Value Reference Range Interpretation Comments TROPONIN-I (test code = TROPI) <0.015 ng/mL 0.00-0.056 N CREATINE KINASE (CK)2020-12-24 12:43:00 Test Item Value Reference Range Interpretation Comments CREATINE KINASE (CK) (test code = CK) 38 U/L 39-308 L BASIC METABOLIC [id number] 12:37:00 Test Item Value Reference Range Interpretation [...] >3 months. [Automated mess age] The system [employer] generated this result transmitted ref erence range: >=60. Th e reference range was not used to int erpret this result as normal/abnormal . CREATININE (test 0.77 mg/dL 0.55-1.3 N code = CREAT) BUN/CREATININE RATIO 20.8 10-20 H (test code = BUN/CREA) CALCIUM (test code = 8.1 mg/dL 8.0-10.5 N CA) [id number] 12:37:00 Test Item Value Reference Range Interpretation Comments TROPONIN-I (test code = TROPI) pg/mL 0-45 CBC W/O [id number] 12:33:00 Test Item Value Reference Range Interpretation [...] code 9.3 fL 6.7-11.0 N = MPV) [id number] 09:02:00 Test Item Value Reference Range Interpretation Comments GLUBED (test code = GLUBED) 96 MG/DL 74-106 N [id number] 20:42:00 Test Item Value Reference Range Interpretation Comments GLUBED (test code = GLUBED) 213 MG/DL 74-106 H [id number] 16:51:00 Test Item Value Reference Range Interpretation Comments GLUBED (test code = GLUBED) 209 MG/DL 74-106 H [id number] 15:04:00 Test Item Value Reference Range Interpretation Comments GLUBED (test code = GLUBED) 215 MG/DL 74-106 H [id number] 14:45:00 Test Item Value Reference Range Interpretation Comments ACT-ISTAT (test code = ACTI) 213 SEC 74-125 H [id number] 14:14:00 Test Item Value Reference Range Interpretation Comments ACT-ISTAT (test code = ACTI) 274 SEC 74-125 H [id number] 14:13:00 Test Item Value Reference Range Interpretation Comments ACT-ISTAT (test code = ACTI) 241 SEC 74-125 H [id number] 08:29:00 Test Item Value Reference Range Interpretation Comments GLUBED (test code = GLUBED) 115 MG/DL 74-106 H [id number] 19:03:00 Test Item Value Reference Range Interpretation Comments GLUBED (test code = GLUBED) 143 MG/DL 74-106 H [id number] 16:36:00 Test Item Value Reference Range Interpretation Comments GLUBED (test code = GLUBED) 314 MG/DL 74-106 H [id number] 12:15:00 Test Item Value Reference Range Interpretation Comments GLUBED (test code = GLUBED) 130 MG/DL 74-106 H COVID 19 Asymptomatic IH [id number] 09:47:00 Test Item Value Reference Range Interpretation Comments COVID 19 Asymptomatic IH AG (test NEGATIVE Negative code = COVNONPUIAG) Spec Comments: PATIENT GOING TO CATH LABPROTHROMBIN [id number] 09:38:00 Test Item Value Reference Range Interpretation Comments PROTHROMBIN TIME 12.2 SECONDS 9.2-12.1 H PATIENT (test code = PTP) INTERNATIONAL NORMAL 1.1 The INR is to be used RATIO (test code = only for monitoring INR) ORAL ANTICOAGULANTTH ERAPY. Indication INR Value1. Prophylaxis/lindsay atment of: Venous Thrombosis, Pul monary Embolism 2.0 - 3.02. Prevention of s ystemic embolism from: Tissue heart valves 2. 0 - 3.0 Acute myocardia l infarction (to present systemic [...] Aspirin Enoxaprin (Lovenox)Spec Comments: PATIENT GOING TO PULP MILL OPERATOR 1, THROMBOPLASTIN TIME [id number] 09:38:00 Test Item Value Reference Range Interpretation Comments THROMBOPLASTIN TIME 27.1 SECONDS 23.4-37.0 N Therape utic Range PARTIAL (test code = for Hep audrey PTT) EFFECTIVE Heparin IU/mL a PTT Seconds0.3 64.3 0.7 88.8 IS PATIENT ON ANTICOAGULANTS ? 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 TO PULP MILL OPERATOR 1,GLUBED 2020-07-03 08:24:00 Test Item Value Reference Range Interpretation Comments GLUBED (test code = GLUBED) 135 MG/DL 74-106 H BASIC METABOLIC [id number] 06:53:00 Test Item Value Reference Range Interpretation [...] 9.1 mg/dL 8.4-10.2 N CA) CBC W/AUTO [id number] 06:42:00 Test Item Value Reference Range Interpretation [...] = BA#) 0.05 x10 3/uL 0.0-0.1 N [id number] 21:27:00 Test Item Value Reference Range Interpretation Comments GLUBED (test code = GLUBED) 234 MG/DL 74-106 H [id number] 16:22:00 Test Item Value Reference Range Interpretation Comments GLUBED (test code = GLUBED) 195 MG/DL 74-106 H [id number] 12:04:00 Test Item Value Reference Range Interpretation Comments GLUBED (test code = GLUBED) 179 MG/DL 74-106 H [id number] 08:51:00 Test Item Value Reference Range Interpretation Comments GLUBED (test code = GLUBED) 124 MG/DL 74-106 H [id number] 20:53:00 Test Item Value Reference Range Interpretation Comments GLUBED (test code = GLUBED) 129 MG/DL 74-106 H [id number] 18:30:00 Test Item Value Reference Range Interpretation Comments GLUBED (test code = GLUBED) 174 MG/DL 74-106 H [id number] 12:32:00 Test Item Value Reference Range Interpretation Comments GLUBED (test code = GLUBED) 152 MG/DL 74-106 H [id number] 08:40:00 Test Item Value Reference Range Interpretation Comments GLUBED (test code = GLUBED) 98 MG/DL 74-106 N [id number] 20:46:00 Test Item Value Reference Range Interpretation Comments GLUBED (test code = GLUBED) 110 MG/DL 74-106 H - DUP LE ART [id number] 18:07:00 [facility] 1965 Sex: M FAX: Patrick Ponce Arm [phone] [place]: St: ADM FAX: Nathanael Romero Justine [phone] --------- Name: HARJINDER COLUNGA [facility] : 1965 Age/S: 55/M [address] Unit #: [id number] Loc: [address] [place] [address] Phys: Patrick Sr DPM R2 Acct: [id number] Dis Date: Status: ADM IN PHONE #: [phone] Exam Date: 06/30/20201730 FAX #: [phone] Reason: WOUNDS EXAMS: CPT CODE: [id number] DUP LE ART [id number] STUDY: Bilateral lower extremity ultrasound with Doppler. HISTORY: Peripheral vascular diseaseCOMPARISON: None. TECHNIQUE: Grayscale, color, and pulsed Doppler [...] disease. PAGE 1 Signed Report (CONTINUED) FAX: Patrick Sr Arm [phone] [place]: [facility]: ADM FAX: Nathanael Romero [phone] Name: HARJINDER COLUNGA [facility] : 1965 Age/S: 55/M [address] Unit #: [id number] Loc: [address] [place] [address] Phys: Patrick Sr DPM Acct: [id number] Dis Date: Status: ADM IN PHONE #: [phone] Exam Date: 06/30/2020 1731 FAX #: [phone] Reason: WOUNDS EXAMS:CPT CODE: [id number] DUP LE ART PETER [address] <Continued> at 1807 Reported and signed by: Donaldo Wen MD CC: Patrick Sr DPM; Nathanael Laureano Technologist: MARK Gallardo Trnscrd Date/Time/By: 06/30/2020 (180) : By: [email or web address] PAGE 2 Signed Report FAX: Patrick Sr Arm [phone] [place]: [facility]: ADM FAX: Nathanael Romero [phone] Name: HARJINDER COLUNGA [facility] : 1965 Age/S: 55/M [address] Unit #: [id number]: [address] [place] [address] Phys: Patrick Sr DP R2 Acct: [id number] Dis Date: Status: ADM IN PHONE #: [phone] Exam Date: 06/30/2020 1731 FAX #: [phone] Reason: WOUNDS EXAMS:CPT CODE: [id number] DUP LE ART PETER [address] <Continued> Orig Print D/T: S: 06/30/2020 (1810) PAGE 3 Signed Report- DOP ART 1-2 LEVELS [id number] 18:07:00 [facility] : 1965 Sex: M FAX: Patrick Ponce Arm [phone] [place]: [facility]: ADM FAX: Pavel Hicks MD [phone] Name: HARJINDER COLUNGADOB: 1965 Age/S: 55/M [address] Unit #: [id number] Loc: [address] [place] [address] Phys: Patrick Sr DPM R2 Acct: [id number] Dis Date: Status: ADM IN PHONE #: [phone] Exam Date: 06/30/2020 1731 FAX #: [phone] Reason: WOUNDS, HX OF SMOKING, NON PALP PULSES EXAMS: CPT CODE: [id number] DOP ART 1-2 LEVELS [facility] [address] STUDY: Bilateral lower extremity ultrasound with Doppler.HISTORY: [...] artery: 45, monophasic, Posterior tibial artery: 63, monophasic,Peroneal artery: 68, triphasic, Dorsalis pedis: 20, monophasic Right RADAMES: 0.75. The RADAMES: 0.74. IMPRESSION: Increased differential peak systolic velocity for the right common femoral and proximal superficial femoral arteries with monophasic waveforms distal to the common femoral artery indicative of significant stenosis between these arteries. Left infrapopliteal artery monophasic waveforms consistentwith significant arterial disease distal to the popliteal artery. Bilateral RADAMES values compatible with moderate arterial disease. PAGE 1 Signed Report (CONTINUED) FAX: Patrick Sr Arm [phone]: St: ADM FAX: Pavel Hicks MD [phone] Name: HARJINDER COLUNGA [facility] : 1965 Age/S: 55/M [address] Unit #: [id number] Loc: [address] [place] [address] Phys: Patrick Sr DPM R2 Acct: [id number] Dis Date: Status: ADM IN PHONE #: [phone] Exam Date: 06/30/2020 173 FAX #: Reason: WOUNDS, HX OF SMOKING, NON PALP PULSES EXAMS: CPT CODE: [id number] DOP ART 1-2 LEVELS PETER [address] <Continued> at 1807 Reported and signed by: Donaldo Wen MD CC: Patrick Sr DPM; Pavel Muñoz MD Technologist: MARK Gallardo Trnprnatalie Date/Time/By: 06/30/2020 (1806) : By: [email or web address] PAGE 2 Signed Report FAX: Patrick Sr Arm [phone] [place]: [facility]: [facility] FAX: Pavel Hicks MD [phone] Name[facility] 1965 Age/S: 55/M [address] Unit #: [id number] Loc: [address] [place] [address] Phys: Patrick Sr DPM R2 Acct: [id number] Dis Date: Status: ADM IN PHONE #: [phone] Exam Date: 06/30/2020 173 FAX #: [phone] Reason: WOUNDS, HX OF SMOKING, NON PALP PULSES EXAMS: CPT CODE: [id number] DOP ART 1-2 LEVELS [place]ER [address] <Continued> Orig Print D/T: S: 06/30/2020 (1810) PAGE 3 Signed Report [id number] 16:25:00 Test Item Value Reference Range Interpretation Comments GLUBED (test code = GLUBED) 244 MG/DL 74-106 H [id number] 12:16:00 Test Item Value Reference Range Interpretation Comments GLUBED (test code = GLUBED) 246 MG/DL 74-106 H [id number] 08:54:00 Test Item Value Reference Range Interpretation Comments GLUBED (test code = GLUBED) 172 MG/DL 74-106 H [id number] 21:00:00 Test Item Value Reference Range Interpretation Comments GLUBED (test code = GLUBED) 118 MG/DL 74-106 H [id number] 15:58:00 Test Item Value Reference Range Interpretation Comments GLUBED (test code = GLUBED) 249 MG/DL 74-106 H [id number] 12:28:00 Test Item Value Reference Range Interpretation Comments GLUBED (test code = GLUBED) 285 MG/DL 74-106 H - MRI LOW EXT W/O CONT [id number] 11:17:[address] [facility] : 1965 Sex: M FAX: Patrick Ponce Arm [phone] [place]: St: ADM FAX: Pavel Hicks MD [phone] [facility] 1965 Age/S: 55[facility]M [address] Unit #: [id number] Loc: C.[address] [place] [address] Phys: Patrick Sr DPM R2 Acct: [id number] Dis Date: Status: ADM IN PHONE #: [phone] Exam Date: 06/29/202059 FAX #: [phone] Reason: PETER le WOUNDS IN FORE FOOT EXAMS: CPT CODE: [id number] [place] L[place] EX[place] W/[place] [address] EXAM: - MRI LOW EXT W/O CONT LT HISTORY: PETER le WOUNDS IN FORE FOOT, pain COMPARISON: None available at time of interpretation. TECHNIQUE: Multi sequential, multiplanarnoncontrast MR images of the left foot. FINDINGS: Bones: No areas of confluent T1 hypointensity iden tified. 4 mm subcortical cyst identified at the [...] and signed by: Michael Bai MD CC: Patrick Sr DPM; Pavel Muñoz MD Technologist: Wendy Agee Trnscrd Date/Time/By: 06/29/2020 (8352) : By: [email or web address] PAGE 1 Signed Report FAX: Patrick Sr Arm [phone] [place]: St: ADMFAX: Pavel Hicks MD [phone] Name: HARJINDER COLUNGA [facility] : 1965 Age/S: 55/M [address] Unit #:[id number] Loc: [address] [address] Phys: Patrick Sr DPM R2 Acct: [id number] DisDate: Status: ADM IN PHONE #: [phone] Exam Date: 06/29/2020 0959 FAX #: [phone] Reason: PETER le WOUNDS IN FORE FOOT EXAMS: CPT CODE: [id number] [place] L[place] EXT W/[place] [address] <Continued> Orig Print D/T: S: 06/29/2020 (1305) PAGE 2 Signed Report- MRI LOW EXT W/O CONT RT 2020-06-29 10:16:00 [facility] : 1965 Sex: M FAX: Patrick Ponce Arm [phone] [place]: [facility]: ADM FAX: Pavel Hicks MD [phone] Name: HARJINDER COLUNGA [facility] : 1965 Age/S: 55/M [address] Unit #: [id number] Loc: [address] [place] [address] Phys: Patrick Sr DPM R2 Acct: [id number] Dis Date: Status: ADM IN PHONE #: [phone] Exam Date: 06/29/2020 0959 FAX #: [phone] Reason: PETER FOOT WOUNDS EXAMS: CPT CODE: [id number] MRI LOWEXT W/[place] [address] EXAM: - MRI LOW EXT W/O CONT RT HISTORY: PETER FOOT WOUNDS COMPARISON: None available at time of interpretation. TECHNIQUE: Multi sequential, multiplanar noncontrast MR images of the right foot. FINDINGS: Bones: No areas of confluent T1 hypointensity identified. Soft tissues: No jamey inable fluid collection. Muscles/tendons: Small amount of fluid in the peroneus longus tendon sheath. IMPRESSION: No osteomyelitis. No drainable fluid collection. Mild peroneus longus tenosynovitis. at 1016 Reported and signed by: Michael Bai MD CC: Patrick Sr DPM; Pavel Muñoz MD Technologist: Wendy Agee TrnscrdDate/Time/By: 06/29/2020 (1016) : By: [email or web address] PAGE 1 Signed Report FAX: Patrick Sr Arm [phone] [place]: [facility]: ADM FAX: Pavel Hicks MD [phone] Name: [place] : 1965 Age/S: 55/M [address] Unit #: [id number] Loc: [address] [place] [address] Phys: Patrick Sr DPM R2 Acct: [id number] Dis Date: Status: ADM IN PHONE #: [phone] Exam Date: 06/29/2020958 FAX#: [phone] Reason: PETER FOOT WOUNDS EXAMS: CPT CODE: [id number] MRI [place] EXT W/[place] [address] <Continued> Orig Print D/T: S: 06/29/2020 (2160) PAGE 2 Signed ReportCOMPREHENSIVE METABOLIC [id number] 09:31:00 Test Item Value Reference Range Interpretation [...] N (test code = ALKP) COMPREHENSIVE METABOLIC [id number] 09:30:00 Test Item Value Reference Range Interpretation [...] U/L 38-126 N (test code = ALKP) [id number] 09:28:00 Test Item Value Reference Range Interpretation Comments GLUBED (test code = GLUBED) 184 MG/DL 74-106 H CBC W/AUTO [id number] 07:48:00 Test Item Value Reference Range Interpretation [...] BA#) 0.03 x10 3/uL 0.0-0.1 N SED [id number] 07:48:00 Test Item Value Reference Range Interpretation Comments SED RATE (test code = SEDW) 85 mm/hr 0-20 H HGBA1C - GLYCOSYLATED [id number] 07:08:00 Test Item Value Reference Range Interpretation [...] with these hemo globin variants. CBC W/AUTO [id number] 06:43:00 Test Item Value Reference Range Interpretation [...] BA#) 0.03 x10 3/uL 0.0-0.1 N SED [id number] 06:43:00 Test Item Value Reference Range Interpretation [...] AVG 3.27 AV G 4.97 AVG 4.44 2 X AVG 9.55 [...] LDL Cholesterol<1 00mg/ dL: Desirable L DL-C jkhhlpkzoipme88 0-159 mg/dL: Borderli ne High Risk LDL-C tksuqvsipxmvf88 0-189 mg/dL: High ris k LDL-C concentra tion HDL-LDL Cholest adi is affected by a number of facto rs suchas smoking, age and sex.~~~~~~~~~~~ ~~~~~ ~~~~~~~~~~~~~~~ ~~~~~ ~~~~~~~~~~~~~~~ ~~~~~ ~~~~ C REACTIVE [id number] 05:49:00 Test Item Value Reference Range Interpretation [...] code = LDLC) CORONARY RISK FACTOR 5.77 CHOL/ HDL RISK MALE: (test code = RISK) 1/2 [...] LDL Cholesterol<1 00mg/dL : Desirable LDL -C poxaqzdsbwvuu84 0-159mg /dL: Borderline High Risk LDL-C snlmxmmrwcpes15 0-189mg /dL: High risk LDL-C concentration H DL-LDL Cholesterol is affected by a n umber of factors such as smoking, age an d sex.~~~~~~~~~~~ ~~~~~~~ ~~~~~~~~~~~~~~~ ~~~~~~~ ~~~~~~~~~~~~~~~ ~~~~~ C REACTIVE [id number] 05:42:00 Test Item Value Reference Range Interpretation Comments C REACTIVE PROTEIN (test code = 51.3 mg/L 0-9 H CRP) [id number] 20:47:00 Test Item Value Reference Range Interpretation Comments GLUBED (test code = GLUBED) 253 MG/DL 74-106 H BASIC METABOLIC [id number] 17:16:00 Test Item Value Reference Range Interpretation Comments SODIUM (test code = 130 mmol/L 137-145 L NA) POTASSIUM (test code 4.6 mmol/L 3.4-5.0 N = K) CHLORIDE (test code = 93 mmol/L 98-107 L CL) CARBON DIOXIDE (test 29 mmol/L 22-30 N code = CO2) GLUCOSE (test code = 404 mg/dL 74-106 HH Critica l Value GLU) reported [facility] Name:[id number] [facility] Name:RESULTS RE AD BACK AND VERIFIEDby C.LAB.AC2, [...] 9.1 mg/dL 8.4-10.2 N CA) LIVER FUNCTION [id number] 17:16:00 Test Item Value Reference Range Interpretation [...] 38-126 N (test code = ALKP) LACTIC [id number] 17:04:00 Test Item Value Reference Range Interpretation Comments LACTIC ACID (test code = LACT) 1.7 mmol/L 0.7-2.0 N - XR FOOT 3 + V [id number] 17:00:00 [facility] : 1965 Sex: M FAX: Giovany Landa MD R1 [place]: St: REG Name: HARJINDER COLUNGA [facility] : 1965 Age/S: 55/M [address] Unit #: [id number] Loc: [place] [address] Phys: Giovany Landa MD R1 Acct: [id number] Dis Date: Status: REG ER PHONE #: [phone] Exam Date: 06/28/2020 1649 FAX #: [phone] Reason: left foot wound EXAMS: CPT CODE: [id number] XR FOOT 3 + V [place] [address] EXAM: - XR FOOT 3 + V LT HISTORY: left foot wound COMPARISON: None available time of interpretation. FINDINGS: Frontal, oblique, and lateral views of theleft foot are provided. Chronic erosion in the 4th distal phalanx. No osseous erosion, periosteal reaction, or local demineralization is noted to suggest [...] Signed Report FAX: Giovany Landa MD R1 [place]: St: REG Name: HARJINDER COLUNGA [facility] : 1965 Age/S: 55/M [address] Unit #: [id number] Loc: [place] [address] Phys: Giovany Landa MD R1 Acct: [id number] Date: Status: REG ER PHONE #: [phone] Exam Date: 06/28/2020 1649 FAX #: [phone] Reason: left foot wound EXAMS: CPT CODE: [id number] XR FOOT 3 + V LT [address]77 <Continued> Orig Print D/T: S: 06/28/2020 (8303) PAGE 2 Signed ReportUA RFLX MICR CULT IF [id number] 16:19:00 Test Item Value Reference Range Interpretation [...] oth srcSOURCE OF URINE: CLEAN CATCHCBC W/AUTO [id number] 15:48:00 Test Item Value Reference Range Interpretation [...] 3/uL 0.0-0.1 N - XR CHEST 1 [id number] 15:36:00 [facility] : 1965 Sex: M FAX: Mi Ellis NP [place]: [facility]: PRE --------- Name: HARJINDER COLUNGA [facility] : 1965 Age/S: 55/M [address] Unit #: [id number] Loc: [place] [address] Phys: Mi Ellis NP Acct: [id number] Dis Date: Status: PRE ER PHONE #: [phone] Exam Date: 06/28/2020 1533 FAX #: [phone] Reason: CODE SEPSIS EXAMS: CPT CODE: [id number] XR CHEST 1 V 41831 EXAMINATION: Frontal chest radiograph INDICATION: Code sepsis COMPARISON: 02/27/2016 FINDINGS: Clear lungs. No pleural effusion or pneumothorax. Normal cardiomediastinal silhouette. IMPRESSION: No acute abnormality identified. at 1536 Reported and signed by: Richard Linda M.D. CC: Mi Ellis NP Technologist:Lindsey Ha; STUDENT 2ND YEAR Trnscrd Date/Time/By: 06/28/2020 (1536) : By: MerPE1 PAGE 1 Signed Report FAX: Mi Ellis NP [place]: [facility]: PRE Name: HARJINDER COLUNGA [facility] : 1965 Age/S: 55/M [address] Unit #: [id number] Loc: [place] [address] Phys: Mi Ellis NP Acct: [id number] Dis Date: Status: PRE ER PHONE #: [phone] Exam Date: 06/28/2020 1533 FAX #: [phone] Reason: CODE SEPSIS EXAMS: CPT CODE: [id number] XR CHEST 1 V 98336 <Continued> Orig Print D/T: S: 06/28/2020 (1539) PAGE 2 Signed Report- US EXTREM NON VASC [id number] 15:47:[address] : 1965 Sex: M Patient Name: HARJINDER COLUNGA Unit No: [id number] EXAMS: CPT CODE: [id number] US EXTREM NON VASC LTD 37206 HISTORY: Infection Location: C3 FINDINGS: Sonographic images of the leg were obtained. No soft tissue fluid collection demonstrated. No cystic or solid mass identified. IMPRESSION: 1. Soft tissue edema without discrete dominant fluid collection or cystic or solid mass lesion. at 1547 Reported and signed by: Donaldo Tang M.D. CC: Rod Cerda NP Technologist: Ely Lopez RDMS Trnscrbd D/ (1547) MerRXC2 Probe: [id number] Orig Print D/T: S: 02/27/2020 (1550) Probe: ELEANORLoulou Vora NAME: HARJINDER COLUNGA [address] [place] [address] Blvd PHYS: JOSE MARIA - Rod Cerda, [place] [address] : 1965 AGE: 54 SEX: M LOC: VANNA PHONE #: [phone] EXAM DATE: 02/27/2020 STATUS: REG ER FAX #: [phone] RAD NO: Page 1 Signed ReportBASIC METABOLIC [id number] 15:20:00 Test Item Value Reference Range Interpretation [...] NORMAL code = LIPINDEX) Index/DL GLUCOSE BEDSIDE [id number] 14:32:00 Test Item Value Reference Range Interpretation Comments GLUCOSE BEDSIDE 459 MG/DL 70-119 HH LOW/HIGH KVNG RT VALUE - TESTING (test code = ACTION REQUIRED GLUBED) - CT ABD PELVIS W/O [id number] 16:45:00 Name: HARJINDER COLUNGA [facility]ED : 1965 Age/S: 54 / M [address] Unit #: [id number] Loc: [address] Phys: Brennan Dupont MD [place], [place] [address] Acct: [id number] Dis Date: Status: REG ER PHONE #: Exam Date: 10/08/2019 2671 FAX #: Reason: R sided flan pain EXAMS: CPT CODE: [id number] CT ABD PELVIS W/O CONT 21658 EXAM: CT of the abdomen and pelvis [...] or pelvic abnormalities. Location code: [facility] Electronical ly Signed by Amanda Mcdaniel on 10/08/2019 at 1645 Reported and signed by: Feliciano Mcdaniel M.D. 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 (test code = UAMICRO) COMPREHENSIVE METABOLIC [id number] 13:06:00 Test Item Value Reference Range Interpretation [...] 50-139 N code = ALKP) CBC W/AUTO [id number] 12:54:00 Test Item Value Reference Range Interpretation [...] REQUIRED (test code NO = MDIFF) CHEM [id number] 14:06:001.11Memoriaz HermannCHEM DNYBN1658-79-43 14:06:0078 [facility] QfelsnmWUMHWVNVIZ6356-95-36 14:06:03230Fxpfihoz HermannHEMATOLOGY 2016-01-03 14:06:00 Test Item Value Reference Range Interpretation Comments PTT (test code = PTT) 24.1 s 22.9-35.8 [facility] BobnoseOTTHPFCEIK4002-17-07 06:35:004.52[facility] HermannHEMATOLOGY 2016-01-03 06:35:0013.3[facility] XafdyqePZYJKIRCYH8013-68-27 06:35:009.9[facility] QeqynoeJUXPPOCNJJ6036-13-20 06:35:002.6[facility] QxbviokFXKRDLQZGJ1133-23-13 06:35:00Normal (01/03/16 1:35 AM)[facility] TycwsztQHGNYVPLJD9474-82-60 06:35:00 Normal (01/03/16 1:35 AM)[facility] BtfrfsjRHVMZQCILN3509-93-19 06:35:0019.4 [facility] YironulVNJUHQICZQ8163-50-88 06:35:0074.2[facility] HermannHEMATOLOGY 2016-01-03 06:35:000.1[facility] UoipeabYSUETBOYZR7410-86-48 06:35:000.7[facility] RfphkbaCVMWFAXTNP9842-68-78 06:35:000.1[facility] NgjicfyCLYBSXUEFT8144-94-84 06:35:000.6[facility] UdnrwkkBTEOPDKQIL9356-50-79 06:35:000.8[facility] [place] PXQZTAUDUZ2015-11-77 06:35:005.0[facility] HermannCARDIAC FWMCLZX0755-64-47 06:35:0047[facility] HermannCARDIAC JOZQUBK5938-12-13 06:35:0011[facility] [place] CHEM EYUBL5510-21-89 06:35:26629Xiywokhl HermannCHEM IMEXI4091-14-84 06:35:00 13.5[facility] HermannCHEM MRGXX4922-10-66 06:35:0024[facility] HermannCHEM PANEL 2016-01-03 06:35:003.5[facility] HermannCHEM EXZRU7559-02-36 06:35:003.1[facility] HermannCHEM IWENN0027-13-92 06:35:01341Mvtemajt HermannCHEM ALEBG8678-68-56 06:35:72096Pdtpvlvm HermannCHEM QOSEK7787-75-17 06:35:008.2[facility] HermannCHEM MIPBZ6483-90-01 06:35:009[facility] HermannCHEM LSPNE7203-85-14 06:35:006.3 [facility] HermannCHEM KBFWD2388-14-37 06:35:003.2[facility] HermannCHEM PANEL 2016-01-03 06:35:0061Mem[facility] HermannCHEM WAYHE0121-93-75 06:35:000.5[facility] HermannCHEM IYTUW8093-39-06 06:35:0011[facility] HermannCHEM NFYBT5934-29-75 06:35:001.0[facility] HermannCHEM NDGQW2934-91-47 06:35:0022[facility] HermannCHEM JJVXA8883-56-87 06:35:000.88[facility] HermannCHEM FYXXX3674-90-29 06:35:008 [facility] HermannCHEM WYVMD8478-41-32 06:35:01019Vzthbgdg HermannCHEM PANEL 2016-01-03 06:35:001.8[facility] AcgpunkYXTCWWSWAD7451-86-29 06:35:007.9[facility] VvjfevrFJWADUTRVK3416-38-71 06:35:05960Jbkuvkwi UamwlayTRBWXCAPWH3037-71-96 06:35:0034.8[facility] PduhbrfGPAYEKRTEN8947-26-54 06:35:00 Test Item Value Reference Range Interpretation Comments MCH (test code = MCH) 30.9 pg 27.0-31.0 Memorial XbwbmqeNDJYNCTNFF4727-99-17 06:35:0088.8[facility] HermannHEMATOLOGY 2016-01-03 06:35:0040.2[facility] RhillchSJAIVFRBLB7396-88-14 06:35:0014.0[facility]orial LfjtljuEKIZLVSQHX5175-38-66 06:35:0012.8[facility] HermannCHEM QQVLZ1940-48-55 10:18:008.1[facility] HermannCHEM HLOTG7879-79-95 10:18:0026[facility] HermannCHEM WRXSO5073-84-10 10:18:83717Hcgzitlf HermannCHEM EENQN9261-61-30 10:18:009 [facility] HermannCHEM OZHDO3187-60-48 10:18:004.0[facility] HermannCHEM PANEL 2015-12-19 10:18:28362Ljqnrrpj HermannCHEM PZKMC2394-47-79 10:18:49646Rhwzbqzi HermannCHEM ASMPB4930-99-47 10:18:69199Ehlbghrf HermannCHEM NCXMV3181-62-58 10:18:000.76[facility] HermannCHEM NOAUZ7251-64-57 10:18:0012.0[facility] [place] XZDYZPJQQB8451-94-20 10:18:00 Test Item Value Reference Range Interpretation Comments MCH (test code = MCH) 30.4 pg 27.0-31.0 Memorial NjxkxhbLDFVUREQWK7701-12-54 10:18:09186Ozppjpwv HermannHEMATOLOGY 2015-12-19 10:18:0034.3[facility] MiumzwnLKJOXVCOLR4200-62-89 10:18:008.2[facility] QlrxlrkPZPBNEVZCJ5631-80-69 10:18:0012.4[facility] ZempatfMPJQQTNYZC9624-30-15 10:18:0010.3[facility] ZzjedwtGRCHABRIOL7030-06-38 10:18:004.51[facility] [place] QMBWIVLAEC1580-58-86 10:18:0088.7[facility] XezriuaIPUAMUZCMG3274-29-06 10:18:00 13.7[facility] AcfgztpLIZLEOEKUT5891-42-48 10:18:0040.0[facility] HermannHEMATOLOGY 2015-12-19 10:18:0018.9[facility] QvhcaceHNUEKFOBIL5143-82-74 10:18:0073.5[facility] KemvtfsATMYOOZCXC7428-86-01 10:18:006.7[facility] KbubjjoUPSKOOGUAH8119-18-63 10:18:007.6[facility] EuawqfjPUBVPYHRNC1010-80-75 10:18:000.4[facility] [place] UJBEHFRRUK6585-09-26 10:18:000.0[facility] HldwfthDGICVWUEDV8228-50-90 10:18:000.7 Memorial QyidoohHADIHLTLKX2943-86-24 10:18:000.5[facility] HermannHEMATOLOGY 2015-12-19 10:18:001.9[facility] UprolgpCHOFJWKAGN1767-25-08 10:18:000.0[facility] HermannCHEM SJEAX4383-04-94 04:30:0090[facility] HermannCHEM AACYW6496-78-11 04:30:007.8[facility] HermannCHEM QIIRJ2112-53-71 04:30:000.6[facility] HermannCHEM KKHIJ9818-17-44 04:30:0062Mem[facility] HermannCHEM MOKEG9787-73-07 04:30:0010 [facility] HermannCHEM XWFUE3029-80-90 04:30:0013.0[facility] HermannCHEM PANEL 2015-12-13 04:30:0024Mem[facility] HermannCHEM DTOEQ6737-64-10 04:30:001.34[facility] HermannCHEM HGOSH3993-72-05 04:30:76877Lqigwoal HermannCHEM BIWYL5890-67-78 04:30:0015Mem[facility] HermannCHEM JNOYW6085-06-71 04:30:0017[facility] HermannCHEM SIFCM2649-22-86 04:30:003.7[facility] HermannCHEM KOJGR4626-04-40 04:30:0011 [facility] HermannCHEM WEXES2193-55-06 04:30:004.0[facility] HermannCHEM PANEL 2015-12-13 04:30:008.6[facility] HermannCHEM VGNQO6534-97-86 04:30:16567Okxiiarc HermannCHEM QGQAH9974-12-63 04:30:0099[facility] HermannCHEM PEFLZ8805-72-45 04:30:004.1[facility] HermannCHEM MXGFW9770-75-91 04:30:000.9[facility] HJAEJIAMDY7667-43-36 04:30:000.4[facility] YdrtnwuQKRZWROMQC9649-64-56 04:30:000.0 Memorial ZwaiuncGBILGQMEKW1617-68-44 04:30:001.3[facility] HermannHEMATOLOGY 2015-12-13 04:30:006.1[facility] WxbxhplAIYGOMSJTP9621-42-51 04:30:000.3[facility]orial LnqhkjdBANZUBHQLU9586-52-29 04:30:000.4[facility] PpkrinhMRZUAXQYDY9858-65-69 04:30:005.5[facility] TevoiykCWVTACISMW5084-32-62 04:30:0077.4[facility] DXVTHOCRFD7837-47-22 04:30:0016.4[facility] OrfxzdlTIUXALSFOP9986-99-80 04:30:00 340[facility] HtvflpfZSKVISBSKJ0111-03-50 04:30:008.4[facility] HermannHEMATOLOGY 2015-12-13 04:30:0034.2[facility] RmyrpduGBYIEWFGNL4290-51-26 04:30:0012.8[facility] EaiecvcHBQOENMLLJ8611-87-73 04:30:0015.3[facility] RpcbwleUCIXOFPZFT5513-96-89 04:30:0044.7[facility] ThfctffRWQGRVLINF5490-52-37 04:30:00 Test Item Value Reference Range Interpretation Comments MCH (test code = MCH) 30.6 pg 27.0-31.0 Memorial PfxduhxPQOJLCRDNV0120-46-76 04:30:0089.4[facility] HermannHEMATOLOGY 2015-12-13 04:30:007.9[facility] FjulnkdLRSXAQSSAQ2074-27-37 04:30:004.99[facility] JovjdmgCNIAFQFRQX7800-44-68 04:30:00<2[facility] WuasdpfZVYZPSQIZE2076-52-48 04:30:00<0.003[facility] YjspjxtEMQJMRUOTG3971-04-14 04:30:00<3[facility] RzepzmrADGBCCNJLI0642-74-74 04:30:004.1[facility] Notes Date/Time Note Provider Source 2022-02-17 16:00:00-00:00 [id number] [facility] PATIENT NAME: HARJINDER COLUNGA ADMIT DATE: 01/01/22 ACCOUNT NO: [id number] ROOM NO: V.[id number] AGE: 56 REPORT TYPE: 360 - QUERY RESPONSE DOCUMENT SEX: M DATE OF : [birth year] ADMITTING PHYSICIAN:Ab Lucas MD ATTENDING PHYSICIAN:Ab Lucas MD Provider Query QUERY TEXT: Relationship Diagnoses General 360MD Query related questions should be directed to:[facility] Coding Query Helpline Please clarify the relationship, [...] 360MD Query related questions should be directed to:[facility] Coding Query Helpline Based on your clinical judgment, can you provide the known or suspected condition(s) that represent(s) the clinical indicators listed below and if the condition(s) are present on admission (POA)? The following definitions are provided based on industry literature and in collaboration with [facility] for your reference [...] Ox 96 12/31 111 B/P 137/77 12/31 111 B/P Mean 97 12/31 111 O2 Delivery Room air 12/31 111 Temp 36.9 12/31 1119 Pulse 91 12/31 [...] PATIENT NAME: HARJINDER COLUNGA 966 2022-01-05 10:29:00-00:00 [facility] ([facility]) Discharge Summary REPORT#:[id number] REPORT STATUS: Signed DATE:01/05/22 TIME: 1029 PATIENT: HARJINDER COLUNGA UNIT #: [id number] ROOM/BED: [address] : [birth year] AGE: 56 SEX: M ATTEND: Zoya Lucas MD ADM AUTHOR: Armida Marmolejo OPTIONS TRADER * ALL edits or amendments must be made on the [email or web address] document * PCP PCP PCP: PCP: Dr. Jhon Jones Discharge to: home General Information Problem List/A P: 1. Cellulitis of left anterior lower leg 2. Uncontrolled type 2 diabetes mellitus with h yperglycemia, with long-term current use of insulin 3. Well-controlled hypertension 4. Tobacco use disorder 5. Hyperlipidemia due to type 2 diabetes [facility] 6. Ambulatory dysfunction 7. Hypomagnesemia 8. Left [...] Type 2 DM with hyperglycemia, wi th longterm current use of insulin blindness- 12/31 Serum glucose 216. HbA1C ordered. Maintain nutritional support with ADA diet. Monitor FSBG ac hs. Home dose of Lantus Insulin 15u q hs; medium dose sliding scale insu osiris. 3. Controlled HTN- Admit BP 137/77; home dose of Losartan resumed. Monitor BP. 4. 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 [place], Obs, [address], > 70 mins 01/01/22 1. 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 01/01 XuV3F=28.1. Maintain nutritional support with ADA diet. Monitor [...] Lovenox DNR status per patient preference. Inpatient, [address], > 35 mins 01/02/22 1. Cellulitis Left Anterior Lower Extremity- Cellulitis slowly improving. Pt is on tramadol as needed for pa in management. On IV vancomycin and zosyn. Pharmacy following for vancomycin dosing. 2. Uncontrolled Type 2 DM with hyperglycemia, wi th longterm current use of insulin, blindness- 01/01 TbI5U=17.1. On lantus insulin just titrated the dose [...] Pepcid, Lovenox DNR status per patient preference. [address]54[address], > 35 mins 01/03/22 1. Cellulitis Left Anterior Lower Extremity- Cellulitis slowly improving. Pt is on tramadol as needed for pain management. pineda ed vancomycin and zosyn to Unasyn. 2. Uncontrolled Type 2 DM with hyperglycemia, wi th terminal computer operator current use of insulin, blindness- 01/01 ZhP5Y=11.1. On lantus i nsulin , BG 155. continue to monitor BG ac and hs 3. Controlled HTN- on Losartan , Monitor BP. 4. Tobacco Use Disorder with 40 pack years, use of smokeless tobacco, chronic cough- Continue nicotine patch 5. 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 Ppx: Pepcid, Lovenox DNR status per patient preference. 96217, > 35 mins 01/04/22 1. Cellulitis Left Anterior Lower Extremity- Jaqueline lulitis improving. Pt is on tramadol as needed for pain management. On Unasy n. 2. Uncontrolled Type 2 DM with hyperglycemia, wi th longterm current use of insulin, blindness- 01/01 JrH8E=80.1. On lantus i nsulin , BG 155. continue to monitor BG ac and hs 3. Controlled HTN- on Losartan , Monitor BP. 4. Tobacco Use Disorder with 40 pack years, use of smokeless tobacco, chronic cough- Continue nicotine patch 5. 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 Ppx: Pepcid, Lovenox DNR status per patient preference. 94[address], > 35 mins 01/05/22 Patient got admitted [...] Temp 97.7 01/05 08 Pulse 69 01/05 08 Resp 18 01/05 08 PATIENT WEIGHT: Weight (lb): Weight (oz): Weight (kg): 77.273 General appearance: alert, awake, oriented, no a cute distress Head/Eyes: atraumatic, normocephalic ENT: normal nose, moist mucosal membranes Neck: non-tender, no JVD Cardiovascular: regular rate rhythm, normal hear t sounds Respiratory: no distress, aerating well, symmetr ic expansion GI: soft, non-tender, no distention Extremities: no edema-all extremities Musculoskeletal: right BKA, uses wheelchair Neuro/FAILURE ANALYSIS ENGINEER: alert, oriented X 3 Skin: intact Psychiatry: [...] Ab Lucas MD on at 1830 RPT #:[id number] END OF REPORT 2022-01-04 21:24:00-00:00 [facility] ([facility]) Internal Medicine Prog. Note REPORT#:[id number] REPORT STATUS: Signed DATE:01/04/22 TIME: 2123 PATIENT: HARJINDER COLUNGA UNIT #: [id number] ROOM[facility]BED: [facility] : [birth year] AGE: 56 SEX: M ATTEND: Zoya Lucas MD ADM AUTHOR: Armida Marmolejo NP * ALL edits or amendments must be made on the [email or web address] document * Subjective Chief complaint: Left Leg [...] edema Musculoskeletal: no muscle spasm, Right BKA Neuro/FAILURE ANALYSIS ENGINEER: alert, oriented x 3, CNII-XII intact, normal [...] 5. Hyperlipidemia due to type 2 diabetes [facility] 6. Ambulatory dysfunction 7. Hypomagnesemia 8. Left [...] Type 2 DM with hyperglycemia, wi th longterm current use of insulin blindness- 12/31 Serum glucose 216. HbA1C ordered. Maintain nutritional support with ADA diet. Monitor FSBG ac hs. Home dose of Lantus Insulin 15u q hs; medium dose sliding scale insu osiris. 3. Controlled HTN- Admit BP 137/77; home dose of Losartan resumed. Monitor BP. 4. 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 H [place], Obs, 18[address], > 70 mins 01/01/22 1. Cellulitis Left Anterior Lower Extremity- 12/20 2 Admit WBC 8.3; Lactic Acid improved from 2.3 to 1.3. On Zosyn Vancomycin; Rzo qureshi consulted for Vancomycin dosing assistance , monitor vanc trough levels, goal trough 10-15mcg/ ml. NS IVF 125cc/hr. Morphin e IV prn pain. Doppler was negative for DVT. Monitor the marked line of demarcation for resolution vs worsening of erythema. 2. Uncontrolled Type 2 DM with hyperglycemia, wi th longterm current use of insulin, blindness- 12/31 Serum glucose 216. 01/01 SeK1C=35.1. Maintain nutritional support with ADA diet. Monitor [...] Lovenox DNR status per patient preference. Inpatient, 64772, > 35 mins 01/02/22 1. Cellulitis Left Anterior Lower Extremity- Cellulitis slowly improving. Pt is on tramadol as needed for pa in management. On IV vancomycin and zosyn. Pharmacy following for vancomycin dosing. 2. Uncontrolled Type 2 DM with hyperglycemia, wi th terminal computer operator current use of insulin, blindness- 01/01 UdK1Z=01.1. On lantus insulin just titrated the dose up, will continue to monitor BG ac and hs 3. Controlled HTN- on Losartan , Monitor BP. 4. Tobacco Use Disorder with 40 pack years, use of smokeless tobacco, chronic cough- Continue nicotine patch 5. 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 Ppx: Pepcid, Lovenox DNR status per patient preference. 96955, > 35 mins 01/03/22 1. Cellulitis Left Anterior Lower Extremity- Cellulitis slowly improving. Pt is on tramadol as needed for pain management. pineda ed vancomycin and zosyn to Unasyn. 2. Uncontrolled Type 2 DM with hyperglycemia, wi th longterm current use of insulin, blindness- 01/01 OkK7D=42.1. On lantus i nsulin , BG 155. continue to monitor BG ac and hs 3. Controlled HTN- on Losartan , Monitor BP. 4. Tobacco Use Disorder with 40 pack years, use of smokeless tobacco, chronic cough- Continue nicotine patch 5. 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 Ppx: Pepcid, Lovenox DNR status per patient preference. 17461, > 35 mins 01/04/22 1. Cellulitis Left Anterior Lower Extremity- Jaqueline lulitis improving. Pt is on tramadol as needed for pain management. On Unasy n. 2. Uncontrolled Type 2 DM with hyperglycemia, wi th longterm current use of insulin, blindness- 01/01 LvN4U=79.1. On lantus i nsulin , BG 155. continue to monitor BG ac and hs 3. Controlled HTN- on Losartan , Monitor BP. 4. Tobacco Use Disorder with 40 pack years, use of smokeless tobacco, chronic cough- Continue nicotine patch 5. 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 Ppx: Pepcid, Lovenox DNR status per patient preference. 63599, > 35 mins Electronically Signed by Armida Marmolejo NP on 12/20 12/10 at 2119 Electronically Signed by Ab Lucas MD on at 7179 RPT #:[id number] END OF REPORT 2022-01-03 22:24:00-00:00 [facility] Internal Medicine Prog. Note REPORT#:[id number] REPORT STATUS: Signed DATE:01/03/22 TIME: 2223 PATIENT: HARJINDER COLUNGA UNIT #: [id number] ROOM/BED: [address] : [birth year] AGE: 56 SEX: M ATTEND: Zoya Lucas MD ADM AUTHOR: Armida Marmolejo NP * ALL edits or amendments must be made on the [email or web address] document * Subjective Chief complaint: Left Leg [...] edema Musculoskeletal: no muscle spasm, Right BKA Neuro/FAILURE ANALYSIS ENGINEER: alert, oriented x 3, CNII-XII intact, normal speech Skin: dry, no rash, Erythema at left leg; line of demarcation marked at 16:00 ON 12/31. Psychiatry: normal affect, normal judgement/insi ght, normal mood Results Findings/Data: Laboratory Tests 01/03/22 0549: [Embedded Image Not Available] Laboratory Tests 01/03 1551 1114 0729 0549 Chemistry Sodium (136 - 145 mmol/L) [...] (Auto) (25.0 - 55.0 %) 23.2 L [place] % (Auto) (0.0 - 10.0 %) 8.6 Eos % (Auto) (0.0 - 5.0 %) 2.4 Baso % (Auto) (0.0 - 1.0 %) 0.5 Neut # (Auto) (1.8 - 7.7 K/mm3) 2.65 Lymph # (Auto) (1.0 - 5.0 K/mm3) 0.95 L [place] # (Auto) (0 - 0.8 K/mm3) 0.35 [...] 5. Hyperlipidemia due to type 2 diabetes [facility] 6. Ambulatory dysfunction 7. Hypomagnesemia 8. Left [...] Type 2 DM with hyperglycemia, wi th longterm current use of insulin blindness- 12/31 Serum glucose 216. HbA1C ordered. Maintain nutritional support with ADA diet. Monitor FSBG ac hs. Home dose of Lantus Insulin 15u q hs; medium dose sliding scale insu osiris. 3. Controlled HTN- Admit BP 137/77; home dose of Losartan resumed. Monitor BP. 4. 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 H P, Obs, 71959, > 70 mins 01/01/22 1. Cellulitis Left [...] Type 2 DM with hyperglycemia, wi th longterm current use of insulin, blindness- 12/31 Serum glucose 216. 01/01 RfO5J=13.1. Maintain nutritional support with ADA diet. Monitor [...] Lovenox DNR status per patient preference. Inpatient, 22907, > 35 mins 01/02/22 1. Cellulitis Left Anterior Lower Extremity- Cellulitis slowly improving. Pt is on tramadol as needed for pa in management. On IV vancomycin and zosyn. Pharmacy following for vancomycin dosing. 2. Uncontrolled Type 2 DM with hyperglycemia, wi th longterm current use of insulin, blindness- 01/01 [id number]=88.1. On lantus insulin just titrated the dose [...] Pepcid, Lovenox DNR status per patient preference. [id number], > 35 mins 01/03/22 1. Cellulitis Left Anterior Lower Extremity- Cellulitis slowly improving. Pt is on tramadol as needed for pain management. pineda ed vancomycin and zosyn to Unasyn. 2. Uncontrolled Type 2 DM with hyperglycemia, wi th longterm current use of insulin, blindness- 01/01 [id number]=99.1. On lantus i nsulin , BG 155. continue to monitor BG ac and hs 3. Controlled HTN- on Losartan , Monitor BP. 4. Tobacco Use Disorder with 40 pack years, use of smokeless tobacco, chronic cough- Continue nicotine patch 5. 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 Ppx: Pepcid, Lovenox DNR status per patient preference. 47136, > 35 mins Electronically Signed by Armida Marmolejo NP on 12/20 09/09 at 2232 Electronically Signed by Ab Lucas MD on at 1423 [facility] #:[id number] END OF REPORT 2022-01-02 17:16:00-00:00 [facility] Internal Medicine Prog. Note REPORT#:[id number] REPORT STATUS: Signed DATE:01/02/22 TIME: 1716 PATIENT: HARJINDER COLUNGA UNIT #: [id number] ROOM/BED: [address] : [birth year] AGE: 56 SEX: M ATTEND: Zoya Lucas MD ADM AUTHOR: Armida Marmolejo NP * ALL edits or amendments must be made on the [email or web address] document * Subjective Chief complaint: Left Leg [...] edema Musculoskeletal: no muscle spasm, Right BKA Neuro/FAILURE ANALYSIS ENGINEER: alert, oriented x 3, CNII-XII intact, normal speech Skin: dry, no rash, Erythema at left leg; line of demarcation marked at 16:00 ON 12/31. Psychiatry: normal affect, normal judgement/insi ght, normal mood Results Findings/Data: Laboratory Tests 01/02/22125: [Embedded Image Not Available] Laboratory Tests 01/02 [...] % (Auto) (25.0 - 55.0 %) 26.7 [place] % (Auto) (0.0 - 10.0 %) 6.8 Eos % (Auto) (0.0 - 5.0 %) 2.7 Baso % (Auto) (0.0 - 1.0 %) 0.7 Neut # (Auto) (1.8 - 7.7 K/mm3) 2.75 Lymph # (Auto) (1.0 - 5.0 K/mm3) 1.17 [place] # (Auto) (0 - 0.8 K/mm3) 0.30 [...] 5. Hyperlipidemia due to type 2 diabetes [facility] 6. Ambulatory dysfunction 7. Hypomagnesemia 8. Left [...] Type 2 DM with hyperglycemia, wi th longterm current use of insulin blindness- 12/31 Serum glucose 216. HbA1C ordered. Maintain nutritional support with ADA diet. Monitor FSBG ac hs. Home dose of Lantus Insulin 15u q hs; medium dose sliding scale insu osiris. 3. Controlled HTN- Admit BP 137/77; home dose of Losartan resumed. Monitor BP. 4. 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 H P, Obs, 13407, > 70 mins 01/01/22 1. 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 01/01 VxM0R=14.1. Maintain nutritional support with ADA diet. Monitor [...] Lovenox DNR status per patient preference. Inpatient, 02319, > 35 mins 01/02/22 1. Cellulitis Left Anterior Lower Extremity- Cellulitis slowly improving. Pt is on tramadol as needed for pa in management. On IV vancomycin and zosyn. Pharmacy following for vancomycin dosing. 2. 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 On lantus insulin just titrated the dose [...] Pepcid, Lovenox DNR status per patient preference. 90748, > 35 mins Electronically Signed by Armida Marmolejo NP on 12/20 08/10 at 1728 Electronically Signed by Ab Lucas MD on at 1422 RPT #:[id number] END OF REPORT 2022-01-02 07:17:00-00:00 [facility] ([facility] Pharmacy Prog.Note-Vancomycin REPORT#:[id number] REPORT STATUS: Signed DATE:01/02/22 TIME: 716 PATIENT: HARJINDER COLUNGA UNIT #: [id number] [address] AGE: 56 SEX: M ATTEND: Zoya Lucas MD ADM AUTHOR: Thong Matt RPh * ALL edits or amendments must be made on the el [employer]ronic/computer document * Vancomycin Vancomycin Medication Therapy Goal: [...] will continue to follow. at 0719 RPT #:[id number] END OF REPORT 2022-01-01 22:53:00-00:00 [facility] ([facility] Internal Medicine Prog. Note REPORT#:[id number] REPORT STATUS: Signed DATE:01/01/22 TIME: 2252 PATIENT: HARJINDER COLUNGA UNIT #: [id number] ROOM/BED: [address] : [birth year] AGE: 56 SEX: M ATTEND: Zoya Lucas MD ADM AUTHOR: Chris Trotter OPTIONS TRADER * ALL edits or amendments must be made on the [employer]/computer document * Subjective Chief complaint: Left Leg [...] edema Musculoskeletal: no muscle spasm, Right BKA Neuro/FAILURE ANALYSIS ENGINEER: alert, oriented x 3, CNII-XII intact, normal [...] Correlate with physical exam. Location: [facility] Impression By: [email or web address] - Magan Rae MD RADIOLOGY - XR TIBIA/FIBULA 2 V LT 12/31 1226 Report Impression - Status: SIGNED Entered: 12/31/2021 1240 IMPRESSION: Mild degenerative changes of the left knee. Othe rwise no radiographically evident bony abnormalities are seen in the scanned left lower extremity. The subcutaneous soft tissues appear edematous. Correlate with physical exam. Location: [facility] Impression By: [email or web address] - Magan Rae MD [...] 5. Hyperlipidemia due to type 2 diabetes [facility] 6. Ambulatory dysfunction 7. Hypomagnesemia 8. Left great toe amputee 9. Hx of right BKA 10. Chronic cough 11. Blind 12. DNR (do not resuscitate) Orders: My Order - Last 24 Hours Procedure Date/time Status Medication Management Message 01/02 1104 Comple te Change Patient Status 01/01 3951 Active Consultants: None Code status: do not resuscitate Plan discussed with: patient, admitting alejandro keenan, collaborating MD, nurse, interdisc care team (MDR) [...] Type 2 DM with hyperglycemia, wi th longterm current use of insulin blindness- 12/31 Serum glucose 216. HbA1C ordered. Maintain nutritional support with ADA diet. Monitor FSBG ac hs. Home dose of Lantus Insulin 15u q hs; medium dose sliding scale insu osiris. 3. Controlled HTN- Admit BP 137/77; home dose of Losartan resumed. Monitor BP. 4. 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 H P, Obs, 15099, > 70 mins 01/01/22 1. Cellulitis Left [...] Type 2 DM with hyperglycemia, wi th longterm current use of insulin, blindness- 12/31 Serum glucose 216. 01/01 EaN8K=82.1. Maintain nutritional support with ADA diet. Monitor [...] Lovenox DNR status per patient preference. Inpatient, 95904, > 35 mins Attestations Attestation needed: supervising physician at 1310 Electronically Signed by Ab Lucas MD on at 1422 RPT #:[id number] END OF REPORT 2021-12-31 17:43:00-00:00 [id number] [facility] PATIENT NAME: HARJINDER COLUNGA ADMIT DATE: 12/31/21 ACCOUNT NO: [id number] ROOM NO: [facility] AGE: 56 REPORT TYPE: eNVL VENOUS ULTRASOUND SEX: M DATE OF : 69 ADMITTING PHYSICIAN:Ab Lucas MD ATTENDING PHYSICIAN:Ab Lucas MD *[facility]* [address] [place], [place] [address] Limited Lower Extremity Venous Duplex Evaluation Patient: Harjinder Colnuga Study Date: 12/31/2021 BP: Location: [facility] URN: [id number] : 1965 Age: 56 Height: / Gender: M Weight: / BMI/BSA: / *Ordering Physician: * Jerry Roa *Interpreting Physician: * Baudilio Doyle MD *Mill Machinist: * Cassidy Mcneal Indications: Pain. Study data: Limited lower extremity venous duple x evaluation. Left evaluation with grayscale 2D imaging, color Dopp ler imaging, and spectral Doppler analysis. Location: [facility]. Patient status: Inpatient. Patient room number: RM-C. [...] PATIENT NAME: HARJINDER COLUNGA 966 2021-12-31 15:08:00-00:00 [facility] ([facility]) History Physical - Adult REPORT#:[id number] REPORT STATUS: Signed DATE:12/31/21 TIME: 150 PATIENT: HARJINDER COLUNGA UNIT #: [id number] [address] [birth year] AGE: 56 SEX: M ATTEND: Zoya Lucas MD ADM AUTHOR: Chris Trotter OPTIONS TRADER * ALL edits or amendments must be made on the el [employer]/computer document * History of Present Illness HPI [...] mellitus, Hypertension, Dyslip idemia. Additional medical history: MS in 2003, legally blind Past surgical history: [...] DVT Musculoskeletal: no muscle spasm, Right BKA Neuro/FAILURE ANALYSIS ENGINEER: alert, oriented X 3, normal speech, C [...] (Auto) (25.0 - 55.0 %) 14.4 L [place] % (Auto) (0.0 - 10.0 %) 5.1 Eos % (Auto) (0.0 - 5.0 %) 1.6 Baso % (Auto) (0.0 - 1.0 %) 0.4 Neut # (Auto) (1.8 - 7.7 K/mm3) 6.46 Lymph # (Auto) (1.0 - 5.0 K/mm3) 1.19 [place] # (Auto) (0 - 0.8 K/mm3) 0.42 [...] Correlate with physical exam. Location: [facility] Impression By: Alma Rae MD RADIOLOGY - XR TIBIA/FIBULA 2 V LT 12/31 1226 Report Impression - Status: SIGNED Entered: 12/31/2021 1240 IMPRESSION: Mild degenerative changes of the left knee. Othe rwise no radiographically evident bony abnormalities are seen in the scanned left lower extremity. The subcutaneous soft tissues appear edematous. Correlate with physical exam. Location: [facility] Impression By: Alma Rae MD Results: labs [...] 5. Hyperlipidemia due to type 2 diabetes [facility] 6. Ambulatory dysfunction 7. Hypomagnesemia 8. Left [...] Type 2 DM with hyperglycemia, wi th longterm current use of insulin blindness- 12/31 Serum glucose 216. HbA1C ordered. Maintain nutritional support with ADA diet. Monitor FSBG ac hs. Home dose of Lantus Insulin 15u q hs; medium dose sliding scale insu osiris. 3. Controlled HTN- Admit BP 137/77; home dose of Losartan resumed. Monitor BP. 4. 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 H P, Obs, 73808, > 70 mins Attestations Attestation needed: supervising physician at 1851 Electronically Signed by Ab Lucas MD on at 1422 RPT #:[id number] END OF REPORT 2021-12-31 11:20:00-00:00 [facility] ([facility]) EMERGENCY PROVIDER REPORT REPORT#:[id number] REPORT STATUS: Signed DATE:12/31/21 TIME: 1119 PATIENT: HARJINDER COLUNGA UNIT #: [id number] ROOM/BED: AGE: 56 SEX: M PCP PHYS: No Primary or Family P hysician SERVICE AUTHOR: Jerry Roa MD * ALL edits or amendments must be made on the el [employer]/computer document * HPI-General Illness General Initial Greet [...] BEDTIME INSULIN GLARGINE (LANTUS) 15 UNITS SUBQ BEDTIM E #5 Prov: 08/06/21 INSULIN LISPRO (HumaLOG) 5 [...] mellitus, Hypertension, Dyslip idemia. Additional Medical History MS in 2003 Past Surgical History: Reports: Amputation. [...] (Auto) (25.0 - 55.0 %) 14.4 L [place] % (Auto) (0.0 - 10.0 %) 5.1 Eos % (Auto) (0.0 - 5.0 %) 1.6 Baso % (Auto) (0.0 - 1.0 %) 0.4 Neut # (Auto) (1.8 - 7.7 K/mm3) 6.46 Lymph # (Auto) (1.0 - 5.0 K/mm3) 1.19 [place] # (Auto) (0 - 0.8 K/mm3) 0.42 [...] Physician Name Ab Lucas MD Admit Physician Medical Record Technician Physician Request Time 1330 Request Date 12/31/21 )( Admission Accepts Yes )( Accepted Time 1330 )( Accepted Date 12/31/21 Call Information will see patient, agrees with eval, agrees with plan Electronically Signed by Jerry Roa MD on 12/20 06/12 at 1330 RPT #:[id number] END OF REPORT 2021-10-07 07:00:00-00:00 [facility] ([facility]) EMERGENCY PROVIDER REPORT REPORT#:[id number] REPORT STATUS: Signed DATE:10/07/21 TIME: 0700 PATIENT: HARJINDER COLUNGA UNIT #: [id number] ROOM/BED: AGE: 56 SEX: M PCP PHYS: No Primary or Family Ph ysician SERVICE DT: AUTHOR: Jerry Roa MD * ALL edits or amendments must be made on the el [employer] document * HPI-General Illness General Initial Greet [...] mellitus, Hypertension, Dyslip idemia. Additional Medical History MS in 2003 Past Surgical History: Reports: Amputation. [...] Pulse Ox 99 10/07 0658 B/P 157/75 / 0658 B/P Mean 102 10/07 0658 Temp [...] )( Discharged to Home Yes )( Time 0701 )( Date 10/07/21 Discharge/Care Plan Counseled Regarding Diagnosis, Need for follow-u p, When to return to ED Patient Instructions ED Staple Removal, No Compl ication Referrals Provider Referral: Gilbert Salinas DO Address: [address] [place] [address] [address] [place] [address] Provider Referral: Rodriguez Salinas DO Follow-Up: 1-2 Days Address: [address] [place] [address] Electronically Signed by Jerry Roa MD on 09/19 01/10 at 0705 [facility] #:[id number] END OF REPORT 2021-08-06 17:50:24-00:00 You Can Quit Smoking: Brief Version *: quit smokingIndication:Nicotine dependenceStart: 30-Dim-[id number] Type: Patient Education 2021-08-06 17:50:24-00:00 Smoking: Ways to Quit: quitting smokingIndication:Nicotine dependenceStart: 74-Vpf-[id number] Type: Patient Education 2021-08-06 16:40:00-00:00 [facility] ([facility]) EMERGENCY PROVIDER REPORT REPORT#:[id number] REPORT STATUS: Signed DATE:08/06/21 TIME: 1640 PATIENT: HARJINDER COLUNGA UNIT #: [id number] ROOM/BED: AGE: 56 SEX: M PCP PHYS: No Primary or Family Ph ysician SERVICE AUTHOR: Brennan Dupont MD * ALL edits or amendments must be made on the el [employer]/computer document * HPI-General Illness Free Text HPI Notes Free Text HPI Notes This is a 56-year-old male h istory of diabetes, hypertension, who presents with hyperglycemia. Patient states he has been out of insulin since 07/22/2021. Patient denies fevers chills cough. States that he wants to be placed in a penitentiary. General Initial Greet Date/Time 08/06/21 1518 Presentation [...] PO Q8H 14 Days #42 CAPS Prov: 03/13/21 CLINDAMYCIN HCL (CLEOCIN) 300 MG PO Q6H CLINDAMYCIN HCL (CLEOCIN) 300 MG PO Q6H #40 CAP S Prov: 12/24/20 Discontinued Scripts LOSARTAN (COZAAR) 50 MG PO DAILY LOSARTAN (COZAAR) 50 MG PO DAILY #30 TAB Prov: 07/01/20 DC: 08/06/211828 INSULIN GLARGINE (LANTUS) 15 UNITS SUBQ BEDTIME INSULIN GLARGINE (LANTUS) 15 UNITS SUBQ BEDTIME #5 Prov: 07/01/20 DC: 08/06/21 182 INSULIN LISPRO (HumaLOG) 5 UNITS SUBQ AC INSULIN LISPRO (HumaLOG) 5 UNITS SUBQ AC #5 Prov: 07/01/20 DC: 08/06/211828 metFORMIN (GLUCOPHAGE) 500 MG PO BID metFORMIN (GLUCOPHAGE) 500 MG PO BID #60 TABS Prov: 12/24/20 DC: 08/06/211828 Calculated Suicide Risk (nurs) No risk Past Medical History: Reports: Diabetes mellitus (BS 168 MG/DL LAST PM ). Additional Medical History MS in 2003 Additional Surgical History None Family [...] normal limits Musculoskeletal: normal inspection, normal tone Neuro/FAILURE ANALYSIS ENGINEER: alert oriented x 3, nonfocal Skin: warm, [...] pH (5.0 - 8.0) 6.0 Ur Specific Rachel (1.001 - 1.035) 1.020 Urine Protein (Neg [...] No acute cardiopulmonary process. Location: [facility] Impression By: MerDK - Ramu Ramos M.D. Point of Care [...] )( Discharged to Home Yes )( Time 185 )( Date 08/06/21 Discharge/Care Plan Patient Instructions [...] symptoms should prompt an immediate return to [facility] or the closest emergency department or a call to 911. at 1947 RPT #:[id number] END OF REPORT 2020-12-24 12:15:00-00:00 [facility] ([facility]) EMERGENCY PROVIDER REPORT REPORT#:[id number] REPORT STATUS: Signed DATE:12/24/20 TIME: 1215 PATIENT: HARJINDER COLUNGA UNIT #: [id number] ROOM/BED: AGE: 55 SEX: M PCP PHYS: No Primary or Family Ph ysician SERVICE AUTHOR: Jerry Roa MD * ALL edits or amendments must be made on the [email or web address]/computer document * HPI-Dizziness/Weakness General Initial Greet Date/Time [...] and squeezes hands appropriately upon command. Normal obca-th-pyzz eye mo vements on extraocular muscle testing. [...] MG/DL LAST PM ). Additional Medical History MS in 2003 Additional Surgical History None Family History: Reports: (father had C AD). Drug Use Denies recreational drugs Smoking status: Smoking status for patients 13 years old or old er: Never Smoker Other Social History Hx of substance and alcohol abuse Physical Exam Vital Signs Vital Signs First Documented: Result Date Time Pulse Ox 96 / 1206 B/P 134/72 09/05 1206 B/P Mean 92 09/05 1206 O2 Delivery Room air / 1206 Temp 36.7 09/05 1206 Pulse 94 09/05 1206 Resp 16 09/ 1206 Last Documented: Result Date Time Pulse Ox 100 09/05 1350 B/P 160/72 09/05 1350 B/P Mean 101 09/05 1350 O2 Delivery Room air 09/05 1350 Pulse 79 09/05 1350 Resp 20 09/ 1350 Temp 36.7 09/05 1206 Review of [...] pH (5.0 - 8.0) 6.0 Ur Specific Rachel (1.001 - 1.035) 1.020 Urine Protein (Neg [...] LP Impression By: Ashanti - Mayuri Duncan D.OTish Point of Care Testing Pulse Oximetry Pulse Ox % 98 On: Room air Interpretation Interpreted by me, Pulse oximetr y normal Time 1218 ECG #1 Interpretation Time 1246 Interpreted by ED physician NL ECG Interpretation Normal rate, No STEMI, Nor mal axis, Normal intervals, Adequate tracing ECG Q-T-ST - MS Non-specific ST changes Conduction/Peralta RBBB - complete Re-Evaluation MDM Re-Evaluation/Progress #1 [...] 1206 Temp 36.7 12/24 1206 Pulse 94 09/ 1206 Resp 16 / 1206 Last Documented: Result Date Time Pulse Ox 100 09/ 1350 B/P 160/72 09/ 1350 B/P Mean 101 09/05 1350 O2 Delivery Room air 09/ 1350 Pulse 79 09/ 1350 Resp 20 / 1350 Temp 36.7 12/24 1206 All vital [...] Wound Care Referrals Narda Oshea: 1-2 Days [facility]: 1-2 Days Electronically Signed by Jerry Roa MD on 09/08 at 1644 [facility] #:[id number] END OF REPORT 2020-08-14 18:14:00-00:00 [id number] [facility] [address] [place] [address] PATIENT NAME: HARJINDER COLUNGA ADMIT DATE: 06/28/20 ACCOUNT NO: [id number] ROOM NO: C.OBS14 AGE: 55 REPORT TYPE: DISCHARGE SUMMARY SEX: M ADMITTING PHYSICIAN:Nathanael Laureano ATTENDING PHYSICIAN:Nathanael Laureano ADMISSION DATE: 06/28/2020 DISCHARGE DATE: 07/05/2020 BRIEF SUMMARY OF THE HOSPITAL COURSE: This is a 55-year-old male. The patient is legally blind, who moved from [place] a year ago and the patient states [...] stent to the right superficial femoral artery, MOLDER WAX BALL atherectomy of t he right posterior tibial artery. The patient tolerated the procedure well . After discussing with ID, Dr. Velez, the patient was discharged home on 07/05/2020 with p.o. Keflex for 2 weeks. Dictated By: Nathanael Laureano MD WT: DS:ALEC/THU. Conf#: [id number]/DID#: [id number] Authenticated by MD Daryl Toro 08/15/2020 05:53:32 PM at 1753 PATIENT NAME: HARJINDER COLUNGA 917 2020-07-11 12:12:00-00:00 [id number] [facility] [address] [place] [address] PATIENT NAME: HARJINDER COLUNGA ADMIT DATE: 06/28/20 ACCOUNT NO: [id number] ROOM NO: C.OBS14 AGE: 55 REPORT TYPE: [...] Pedal access, right posterior tibial artery. 5. MOLDER WAX BALL atherectomy and stent to the right superf icial femoral artery. 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 This was a difficult portion of the case. Stenting was with a 6 x 200 EverFlex. 6. MOLDER WAX BALL atherectomy of the right posterior tibial artery [...] done from the groin sheat h. 9. MOLDER WAX BALL of the right external iliac artery with [...] consent, the patient was taken to the dye lab technician and placed supine on the table. Both [...] I successfully gained access acr oss the DIESEL BUS MECHANIC. From there, the wire was flossed back [...] ei ther. Prior to removing the sheath, MOLDER WAX BALL atherectomy of the left tibioperoneal trunk and [...] Dictated By: Gilbert Ventura III, MD WT: OP:ALEC/AMRITA/NTS Conf#: [id number]/DID#: [id number] Authenticated by DAVJO. [email or web address] On 07/19 11:40:13 AM Electronically Signed by Gilbert Ventura III, MD o n 07/19/20 at 1140 PATIENT NAME: HARJINDER COLUNGA 917 2020-07-05 07:39:00-00:00 [facility] Podiatry Progress Note REPORT#:[id number] REPORT STATUS: Signed DATE:07/05/20 TIME: 07 PATIENT: HARJINDER COLUNGA UNIT #: [id number] ROOM/BED: [address] : [birth year] AGE: 55 SEX: M ATTEND: Arpit Laureano ADM AUTHOR: Patrick Sr DPM R2 * ALL edits or amendments must be made on the el [employer]/computer document * General VS/I O: Last Documented: Result Date Time Pulse Ox 98 07/05 720 B/P 120/76 07/05 720 B/P Mean 90.6 07/05 720 Temp 37.1 07/05 720 Pulse 89 07/05 720 Resp 19 07/05 720 O2 Delivery Room air 07/04 2222 24 hour I O ending at 0700: 07/05 0707/04 1900 Intake Total 250 Output Total Balance [...] ABIs report monphasic waveforms d istal to NURSE INTERN, stenosis on RIGHT and similar results on left below popliteal. vascular consulted, agr am results pending. WOund debridement performed at bedside 07/01/20 to beef y red bleeding tissue. No further debridement at this time. Dressed with DSD and aquacel. Pt may follow up with Dr. Marito Ray for out patient wound care. discussed with attending at 0742 RPT #:[id number] END OF REPORT 2020-07-05 07:39:00-00:00 [facility] Podiatry Progress Note REPORT#:[id number] REPORT STATUS: Signed DATE:07/05/20 TIME: 0739 PATIENT: HARJINDER COLUNGA UNIT #: [id number] ROOM/BED: [address] : [birth year] AGE: 55 SEX: M ATTEND: Arpit Laureano ADM AUTHOR: Patrick Sr DPM R2 * ALL edits or amendments must be made on the el [employer]/computer document * General VS/I O: Last Documented: [...] ABIs report monphasic waveforms d istal to NURSE INTERN, stenosis on RIGHT and similar results on left below popliteal. vascular consulted, agr am results pending. WOund debridement performed at bedside 07/01/20 to beef y red bleeding tissue. No further debridement at this time. Dressed with DSD and aquacel. Pt may follow up with Dr. Marito Ray for out patient wound care. discussed with attending at 0742 at 1131 RPT #:[id number] END OF REPORT 2020-07-04 10:47:00-00:00 [facility] [place] ([facility]) Infectious Dis. Progress Note REPORT#:[id number] REPORT STATUS: Signed DATE:07/04/20 TIME: 1047 PATIENT: HARJINDER COLUNGA UNIT #: [id number] ROOM/BED: [address] : 69 AGE: 55 SEX: M ATTEND: Arpit Laureano ADM AUTHOR: Anam Velez MD * ALL edits or amendments must be made on the [email or web address]/computer document * Subjective Chief Complaint: 06-30-2020 FEELS [...] BEDTIME 06/28 2099 AC 07/03 SUBQ 07/28 2101 2252 Clonidine HCl 0.1 MG Q6H PRN PRN 06/28 2014 AC 06/29 PO 07/28 2016 1747 Enoxaparin Sodium 40 MG Q24H 06/28 2014 AC 06/19 5 SUBQ 07/28 2016 2252 Dextrose/Water 25 ML ASDIR PRN 06/28 1914 AC IV 07/29 1915 Glucagon 1 MG ASDIR PRN 06/28 1914 AC IM 07/29 1915 Insulin Human Lispro See Dose ASDIR 06/28 1914 AC 07/03 Insts (3) SUBQ 07/28 191 [...] PMH uncontrolled D M, peripheral neuropathy, cataracts/blindness, MS in 2003, and tobacco abuse presented for [...] MD on 0 07/04/20 at 1049 RPT #:[id number] END OF REPORT 2020-07-04 08:03:00-00:00 [facility] Podiatry Progress Note REPORT#:[id number] REPORT STATUS: Signed DATE:07/04/20 TIME: 0803 PATIENT: HARJINDER COLUNGA UNIT #: [id number] ROOM/BED: [facility] : 69 AGE: 55 SEX: M ATTEND: Arpit Laureano ADM AUTHOR: Patrick Sr DPVasquez R2 * ALL edits or amendments must be made on the [employer]/computer document * General VS/I O: Last Documented: [...] ABIs report monphasic waveforms d istal to NURSE INTERN, stenosis on RIGHT and similar results on left below popliteal. vascular consulted and they will do aortagram this week. WOund debridement performed at bedside 06/19 07/09 to beefy red bleeding tissue. No further debridement at this time. Volodymyr ssed with DSD and aquacel. Pt may follow up with Dr. Marito Ray for out patie nt wound care. discussed with attending at 0808 RPT #:[id number] END OF REPORT 2020-07-04 08:03:00-00:00 [facility] [place] ([facility]) Podiatry Progress Note REPORT#:[id number] REPORT STATUS: Signed DATE:07/04/20 TIME: 0803 PATIENT: HARJINDER COLUNGA UNIT #: [id number] ROOM/BED: [address] : 69 AGE: 55 SEX: M ATTEND: Arpit Laureano ADM AUTHOR: Patrick Sr DPM R2 * ALL edits or amendments must be made on the [employer]/computer document * General VS/I O: Last Documented: [...] ABIs report monphasic waveforms d istal to NURSE INTERN, stenosis on RIGHT and similar results on [...] with attending at 0808 at 1135 RPT #:[id number] END OF REPORT 2020-07-04 08:00:00-00:00 [facility] [place] [facility] REPORT#:[id number] REPORT STATUS: Signed DATE:07/04/20 TIME: 0800 PATIENT: HARJINDER COLUNGA UNIT #: [id number] ROOM/BED: [address]01[address] : 69 AGE: 55 SEX: M ATTEND: Arpit Laureano ADM AUTHOR: Ovidio Hernandez * ALL edits or amendments must be made on the [email or web address]/computer document * Subjective Chief Complaint: foot pain [...] ot wrapped) Musculoskeletal: decreased ROM (R foot) Neuro/FAILURE ANALYSIS ENGINEER: alert, oriented X 3 Ulcer: Type/cause: diabetic Duration: acute Location: foot Laterality: bilateral Stage: 1 Psychiatry: not homicidal, not suicidal, no [place] ucinations Results Findings/Data: Laboratory Tests 07/03 07/03 07/03 1846 1508 1129 Chemistry POC Glucose (74 - 106 MG/DL) 143 H 314 H 130 H Laboratory Tests 07/03 0846 Coagulation INR 1.1 PTT ([place]) (23.4 - 37.0 SECONDS) 27.1 PT Patient/Control [...] will continue to follow at 2110 RPT #:[id number] END OF REPORT 2020-07-03 17:03:00-00:00 [facility] Hospitalist Progress Note REPORT#:[id number] REPORT STATUS: Signed DATE:07/03/20 TIME: 1703 PATIENT: HARJINDER COLUNGA UNIT #: [id number] ROOM/BED: [address] : 67 AGE: 55 SEX: M ATTEND: Arpit Laureano ADM AUTHOR: Tommy Andres OPTIONS TRADER * ALL edits or amendments must be made on the el [employer]/computer document * Subjective Chief Complaint: Foot pain [...] ot wrapped) Musculoskeletal: decreased ROM (R foot) Neuro/FAILURE ANALYSIS ENGINEER: alert, oriented X 3 Ulcer: Type/cause: diabetic [...] NP on 0 07/03/20 at 1704 RPT #:[id number] END OF REPORT 2020-07-03 17:02:00-00:00 [facility] ([facility]) Clinical Note REPORT#:[id number] REPORT STATUS: Signed DATE:07/03/20 TIME: 170 PATIENT: HARJINDER COLUNGA UNIT #: [id number] ROOM/BED: [address] : 67 AGE: 55 SEX: M ATTEND: Arpit Laureano ADM AUTHOR: Tommy Andres NP * ALL edits or amendments must be made on the [email or web address] document * Clinical Note Note: Had a [...] full code. Electronically Signed by Tommy Andres OPTIONS TRADER on 0 07/03/20 at 1703 RPT #:[id number] END OF REPORT 2020-07-03 15:12:00-00:00 [facility] ([facility]) Infectious Dis. Progress Note REPORT#:[id number] REPORT STATUS: Signed DATE:07/03/20 TIME: 151 PATIENT: HARJINDER COLUNGA UNIT #: [id number] ROOM/BED: [address] : 67 AGE: 55 SEX: M ATTEND: Divine Laureano ADM AUTHOR: Anam Velez MD * ALL edits or amendments must be made on the [email or web address] document * Subjective Chief Complaint: 06-30-2020 FEELS [...] ML ASDIR PRN 06/28 191 AC IV 07/29 1915 Glucagon 1 MG ASDIR PRN 06/28 191 AC IM 07/28 191 Insulin Human Lispro See Dose ASDIR 06/28 191 AC 07/02 Insts (3) SUBQ 07/28 1916 2151 Dose Instructions: (1)Perflutren Lipid Microsphere: DIRECTED (2)Sodium Chloride: DIRECTED (3)Insulin Human Lispro: LOW DOSE SCALE Recent Impressions-Last 72 Hrs ULTRASOUND - DUP LE ART PETER 06/30 1730 Report Impression - Status: SIGNED Entered: 06/30/20200 IMPRESSION: Increased differential peak systolic velocity fo [...] Resp B/P B/P Mean Pulse Ox FiO2 /-07/03 36.4-36.9 65-94 17-18 99-142/58-84 72.0-103.6 96-98 PATIENT [...] PMH uncontrolled D M, peripheral neuropathy, cataracts/blindness, MS in 2003, and tobacco abuse presented for [...] MD on 0 07/03/20 at 1515 RPT #:[id number] END OF REPORT 2020-07-03 13:11:00-00:00 [id number] [facility] [address] [facility] [address] [place] [address] PATIENT NAME: HARJINDER COLUNGA ADMIT DATE: 06/28/20 ACCOUNT NO: [id number] ROOM NO: OBS AGE: 55 REPORT TYPE: STRESS ELECTROCARDIOGRAM SEX: [...] 62%. Dictated By: Wojciech Delgado MD WT: STRESS:C.CPS/JUAN MANUEL/NTS Conf#: [id number]#: [id number] Authenticated by Wojciech Delgado MD On 08/01/2020 08:04:19 AM PATIENT NAME: HARJINDER COLUNGA 917 Electronically Signed by Wojciech Delgado MD on 0 08/01/20 at 0804 PATIENT NAME: HARJINDER COLUNGA 917 2020-07-03 13:09:00-00:[id number] [facility] [address] [facility] [address] [place] [address] PATIENT NAME: HARJINDER COLUNGA ADMIT DATE: 06/28/20 ACCOUNT NO: [id number] ROOM NO: [facility] AGE: 55 REPORT TYPE: eECHOCARDIOGRAM REPORT. SEX: M ADMITTING PHYSICIAN:Nathanael Laureano ATTENDING PHYSICIAN:Nathanael Laureano *[facility]* [address] [facility] [address] [place] [address] Transthoracic Echocardiogram Patient: Harjinder Colunga Study Date: 07/03/2020 BP: 124 / 76 Location: [facility] URN: [id number] : 1965 Age: 55 Height: 67 in / 170.2 cm Gender: M Weight: 179 .6 lb / 81.6 kg BMI/BSA: 28.2 kg/m 2 / 1.98 m 2 *Ordering Physician: * Ramu Araujo *Interpreting Physician: * Wojciech Delgado MD *Mill Machinist: Zoe Reardon [facility] Indications: Pre-operative Cardiovascular Evalua tion. Study data: Transthoracic echocardiogram. Proced ure: Transthoracic echocardiography was performed. Images were obta ined using a Silith.IO E95-1 cardiac ultrasound machine. Complete 2D, complet [...] PATIENT NAME: HARJINDER COLUNGA 917 2020-07-03 12:28:00-00:00 [facility] Cardiology Progress Note REPORT#:[id number] REPORT STATUS: Signed DATE:07/03/20 TIME: 1228 PATIENT: HARJINDER COLUNGA UNIT #: [id number] ROOM/BED: [address] : 67 AGE: 55 SEX: M ATTEND: Arpit Laureano [facility] AUTHOR: Wojciech Delgado MD * ALL edits or amendments must be made on the [email or web address]/computer document * Subjective Chief Complaint: Seen and [...] SECONDS) 12 .2 H Laboratory Tests 07/03 0627 Hematology WBC [...] % (Auto) (20.5 - 45.5 %) 22.3 [place] % (Auto) (5.5 - 11.7 %) 9.6 Eos % (Auto) (0.9 - 2.9 %) 2.1 Baso % (Auto) (0.2 - 1.0 %) 0.9 Neut # (Auto) (2.2 - 4.8 x10 3/uL) 3.63 Lymph # (Auto) (1.3 - 2.9 x10 3/uL) 1.25 L [place] # (Auto) (0.3 - 0.8 x10 3/uL) [...] 55 year old man with CAD s/p MS (did not present to [facility] for follow-up PCI), DM, smoker presenting fo r foot wounds, podiatry evaluating for further debridement. Cardiology consulted for pre-operative evaluatio n. 1. preoperative evaluation -intermediate risk - f/u TTE and Lexiscan nuclear stress today give n past MS and inability to exercise 2. DM Monitor blood sugar 3. Foot wounds negative for osteomyelitis on MRI Management per ID and podiatry 4. PVD Aortogram per vascular Monitor lower extremities. Electronically Signed by Wojciech Delgado MD on at 1231 RPT #:[id number] END OF REPORT 2020-07-03 12:28:00-00:00 [facility] ([facility]) Cardiology Progress Note REPORT#:[id number] REPORT STATUS: Signed DATE:07/03/20 TIME: 1228 PATIENT: HARJINDER COLUNGA UNIT #: [id number] ROOM/BED: [address] : 67 AGE: 55 SEX: M ATTEND: Arpit Laureano ADM AUTHOR: Wojciech Delgado MD * ALL edits or amendments must be made on the [email or web address]/computer document * See Addendum Subjective Chief Complaint: [...] Tests 07/03 0846 Coagulation INR 1.1 PTT ([place]) (23.4 - 37.0 SECONDS) 27.1 PT Patient/Control [...] % (Auto) (20.5 - 45.5 %) 22.3 [place] % (Auto) (5.5 - 11.7 %) 9.6 Eos % (Auto) (0.9 - 2.9 %) 2.1 Baso % (Auto) (0.2 - 1.0 %) 0.9 Neut # (Auto) (2.2 - 4.8 x10 3/uL) 3.63 Lymph # (Auto) (1.3 - 2.9 x10 3/uL) 1.25 L [place] # (Auto) (0.3 - 0.8 x10 3/uL) [...] 55 year old man with CAD s/p MS (did not present to [facility] for follow-up PCI), DM, smoker presenting fo r foot wounds, podiatry evaluating for further debridement. Cardiology consulted for pre-operative evaluatio n. 1. preoperative evaluation -intermediate risk - f/u TTE and Lexiscan nuclear stress today give n past MS and inability to exercise 2. DM Monitor [...] Wojciech Delgado MD on at 1319 RPT #:[id number] END OF REPORT 2020-07-03 07:59:00-00:00 [facility] Podiatry Progress Note REPORT#:[id number] REPORT STATUS: Signed DATE:07/03/20 TIME: 075 PATIENT: HARJINDER COLUNGA UNIT #: [id number] ROOM/BED: [address] : [birth year] AGE: 55 SEX: M ATTEND: Arpit Laureano [facility] AUTHOR: Patrick Sr DPM R2 * ALL edits or amendments must be made on the el [employer]/computer document * General VS/I O: Last Documented: [...] ABIs report monphasic waveforms d istal to NURSE INTERN, stenosis on RIGHT and similar results on left below popliteal. vascular consulted and they will do aortagram next week. WOund debridement performed at bedside 06/19 07/09 to beefy red bleeding tissue. No further debridement at this time. Volodymyr ssed with DSD and aquacel. discussed with attending at 0804 RPT #:[id number] END OF REPORT 2020-07-03 07:59:00-00:00 [facility] ([facility]) Podiatry Progress Note REPORT#:[id number] REPORT STATUS: Signed DATE:07/03/20 TIME: 758 PATIENT: HARJINDER COLUNGA UNIT #: [id number] ROOM/BED: [address] : 67 AGE: 55 SEX: M ATTEND: Arpit Laureano ADM AUTHOR: Patrick Sr DPM R2 * ALL edits or amendments must be made on the [email or web address]/computer document * General VS/I O: Last Documented: [...] disease to direct antibiotics. Note that a wou nd culture grew Beta-hemolytic strep. MRI reviewed and no signs of osteomyelitis or abcess is prese nt. ESR 85, CRP 51.3. ABIs report monphasic waveforms d istal to NURSE INTERN, stenosis on RIGHT and similar results on left below popliteal. vascular consulted and they will do aortagram next week. WOund debridement performed at bedside 06/19 07/09 to beefy red bleeding tissue. No further debridement at this time. Volodymyr ssed with DSD and aquacel. discussed with attending at 0804 at 1135 RPT #:[id number] END OF REPORT 2020-07-02 16:40:00-00:00 [facility] ([facility]) Int. Cardiology Consult Note REPORT#:[id number] REPORT STATUS: Signed DATE:07/02/20 TIME: 1640 PATIENT: HARJINDER COLUNGA UNIT #: [id number] ROOM/BED: [address] : 67 AGE: 55 SEX: M ATTEND: Arpit Laureano ADM AUTHOR: Ramu Araujo MD * ALL edits or amendments must be made on the [email or web address]/computer document * History of Present Illness History of Present Illness Requesting clinician: Georgi Reason for consult: Pre-operative assessment Chief complaint: Foot wounds HPI: 55-year-old man, legally blind, DM, CAD with untreated MS in 2003 (patient did not follow-up to [...] MG/DL LAST PM ). Additional medical history: MS in 2003 Additional surgical history: None Family [...] Documented: Result Date Time Pulse Ox 97 03/14 1516 B/P 117/68 07/03 1515 B/P Mean 84.3 07/03 1515 O2 Delivery Room air 07/03 1515 Temp 36.7 07/03 1515 Pulse 76 07/02 151 Resp 18 07/02 151 PATIENT WEIGHT: Weight (lb): 180 Weight (oz): 6.04 Weight (kg): 81.818 General appearance: alert, awake Head/Eyes: atraumatic, clear cornea ENT: moist mucosal membranes, normal nose Neck: full range of motion, non-tender Cardiovascular: CV assessment: regular rate and rhythm, normal heart sounds Respiratory: clear to auscultation, no distress Abdomen: soft, non-tender Musculoskeletal: full range of motion Neuro/FAILURE ANALYSIS ENGINEER: alert, oriented X 3 Skin: foot wounds [...] 55 year old man with CAD s/p MS (did not present to [facility] for follow-up PCI), DM, smoker presenting fo r foot wounds, podiatry evaluating for further debridement. Cardiology consulted for pre-operative evaluatio n. 1. preoperative evaluation -TTE -nuclear stress given past MS and inability to e xercise 2. DM Monitor blood sugar 3. Foot wounds negative for osteomyelitis on MRI Management per ID and podiatry 4. PVD Aortogram per vascular Monitor lower extremities. at 1648 RPT #:[id number] END OF REPORT 2020-07-02 15:12:00-00:00 [facility] REPORT#:[id number] REPORT STATUS: Signed DATE:07/02/20 TIME: 1511 PATIENT: HARJINDER COLUNGA UNIT #: [id number] ROOM/BED: [facility] : 67 AGE: 55 SEX: M ATTEND: Arpit Laureano ADM AUTHOR: Nathanael Laureano * ALL edits or amendments must be made on the el [employer]/computer document * Subjective Chief Complaint: Pain over [...] Potassium 50 MG DAILY 06/29 899 AC 0 07/02 PO 07/29 900 0912 Nicotine 14 MG DAILY 06/29 09 AC 07/02 TRANSDERM 07/29 09 0912 Insulin Human Lispro 5 UNITS AC 06/29 0730 AC 0 07/02 SUBQ 07/29 0731 1233 Insulin Glargine 15 UNITS BEDTIME 06/28 2100 AC 07/01 SUBQ 07/28 210 203 Clonidine HCl 0.1 MG Q6H PRN PRN 06/28 2014 AC 06/29 PO 07/29 2015 174 Enoxaparin Sodium 40 MG Q24H 06/28 2014 AC SUBQ 07/29 2015 203 Dextrose/Water 25 ML ASDIR PRN 06/28 1914 AC IV 07/28 191 Glucagon 1 MG ASDIR PRN 06/28 1914 [...] of care Pain control at 2240 RPT #:[id number] END OF REPORT 2020-07-02 11:55:00-00:00 [facility]) Vascular Surgery Progress Note REPORT#:[id number] REPORT STATUS: Signed DATE:07/02/20 TIME: 1155 PATIENT: HARJINDER COLUNGA UNIT #: [id number] ROOM/BED: [address] : [birth year] AGE: 55 SEX: M ATTEND: Arpit Laureano ADM AUTHOR: Enrrique Zuñiga MD R2 * ALL edits or amendments must be made on the el [employer]/computer document * Subjective Comments: Patient reports unchanged [...] Do ppler study -: R posterior tibialis Neuro/FAILURE ANALYSIS ENGINEER: alert, oriented X 3, normal speech Skin: [...] uncontr olled DM, peripheral neuropathy, cataracts/blindness , MS in 2003, and tobacco abuse presented with [...] MD R2 on 07/02 at 1202 RPT #:[id number] END OF REPORT 2020-07-02 11:55:00-00:00 [facility] Vascular Surgery Progress Note REPORT#:[id number] REPORT STATUS: Signed DATE:07/02/20 TIME: 1155 PATIENT: HARJINDER COLUNGA UNIT #: [id number] ROOM/BED: [address] : [birth year] AGE: 55 SEX: M ATTEND: Arpit Laureano ADM AUTHOR: Enrrique Zuñiga MD R2 * ALL edits or amendments must be made on the [email or web address]/computer document * Enrrique Zuñiga 07/02/20 1155: Subjective [...] Do ppler study -: R posterior tibialis Neuro/FAILURE ANALYSIS ENGINEER: alert, oriented X 3, normal speech Skin: [...] uncontr olled DM, peripheral neuropathy, cataracts/blindness , MS in 2003, and tobacco abuse presented with [...] MD R2 on 07/02 at 1202 RPT #:[id number] END OF REPORT 2020-07-02 11:55:00-00:00 [facility] ([facility]) Vascular Surgery Progress Note REPORT#:[id number] REPORT STATUS: Signed DATE:07/02/20 TIME: 1155 PATIENT: HARJINDER COLUNGA UNIT #: [id number] ROOM/BED: [address] : [birth year] AGE: 55 SEX: M ATTEND: Arpit Laureano ADM AUTHOR: Enrrique Zuñiga MD R2 * ALL edits or amendments must be made on the [email or web address]/computer document * Enrrique Zuñiga 07/02/20 1155: Subjective [...] Do ppler study -: R posterior tibialis Neuro/FAILURE ANALYSIS ENGINEER: alert, oriented X 3, normal speech Skin: [...] uncontr olled DM, peripheral neuropathy, cataracts/blindness , MS in 2003, and tobacco abuse presented with [...] on 07/02 at 1202 at 1024 RPT #:[id number] END OF REPORT 2020-07-02 09:49:00-00:00 [facility] ([facility]) Infectious Dis. Progress Note REPORT#:[id number] REPORT STATUS: Signed DATE:07/02/20 TIME: 948 PATIENT: HARJINDER COLUNGA UNIT #: [id number] ROOM/BED: [address] : [birth year] AGE: 55 SEX: M ATTEND: Arpit Laureano ADM AUTHOR: Anam Velez MD * ALL edits or amendments must be made on the [email or web address]/computer document * Subjective Chief Complaint: 06-30-2020 FEELS [...] 0555 Losartan Potassium 50 MG DAILY 06/29 09 AC PO 07/29 09 0912 Nicotine 14 MG DAILY 06/29 0900 AC 07/02 TRANSDERM 07/29 0901 0912 Insulin Human Lispro 5 UNITS AC 06/29 0730 AC 0 07/02 SUBQ 07/29 0731 0912 Insulin Glargine 15 UNITS BEDTIME 03/10 2100 A C 07/01 SUBQ 07/28 Linezolid 600 MG Q12HR [...] B/P Mean 95.6 07/02 0749 Temp 36.5 03/14 0749 Pulse 75 07/02 0749 Resp 18 07/02 0749 O2 Delivery Room air 06/28 1458 Vital Signs Date Temp Pulse Resp B/P B/P Mean Pulse Ox FiO2 07/01-07/02 36.5-36.7 69-91 14-18 95-125/58-81 70.1-95.6 95-100 PATIENT [...] PMH uncontrolled D M, peripheral neuropathy, cataracts/blindness, MS in 2003, and tobacco abuse presented for [...] MD on 0 07/02/20 at 0951 RPT #:[id number] END OF REPORT 2020-07-02 07:54:00-00:00 [facility] Podiatry Progress Note REPORT#:[id number] REPORT STATUS: Signed DATE:07/02/20 TIME: 0754 PATIENT: HARJINDER COLUNGA UNIT #: [id number] ROOM/BED: [address] : [birth year] AGE: 55 SEX: M ATTEND: Arpit Laureano [facility] AUTHOR: Patrick Sr DPM R2 * ALL edits or amendments must be made on the [employer]/computer document * General VS/I O: Last Documented: [...] ABIs report monphasic waveforms d istal to NURSE INTERN, stenosis on RIGHT and similar results on left below popliteal. vascular consulted and they will do aortagram next week. WOund debridement performed at bedside 06/19 07/09 to beefy red bleeding tissue. Additional, deeper debridement needed in OR later this week. Dressed with DSD and betadine discussed with attending at 0801 RPT #:[id number] END OF REPORT 2020-07-02 07:54:00-00:00 [facility] ([facility]) Podiatry Progress Note REPORT#:[id number] REPORT STATUS: Signed DATE:07/02/20 TIME: 753 PATIENT: HARJINDER COLUNGA UNIT #: [id number] ROOM/BED: [address] : [birth year] AGE: 55 SEX: M ATTEND: Arpit Laureano ADM AUTHOR: Patrick Sr DPM R2 * ALL edits or amendments must be made on the [email or web address]/computer document * General VS/I O: Last Documented: [...] ABIs report monphasic waveforms d istal to NURSE INTERN, stenosis on RIGHT and similar results on left below popliteal. vascular consulted and they will do aortagram next week. WOund debridement performed at bedside 06/19 07/09 to beefy red bleeding tissue. Additional, deeper debridement needed in OR later this week. Dressed with DSD and betadine discussed with attending at 0801 at 1135 RPT #:[id number] END OF REPORT 2020-07-01 19:59:00-00:00 [facility]) Vascular Surgery Consult Note REPORT#:[id number] REPORT STATUS: Signed DATE:07/01/20 TIME: 1958 PATIENT: HARJINDER COLUNGA UNIT #: [id number] ROOM/BED: [address] : [birth year] AGE: 55 SEX: M ATTEND: Arpit Laureano ADM AUTHOR: Eliot Vale MD R1 * ALL edits or amendments must be made on the [email or web address]/computer document * History of Present Illness Requesting Clinician: Patrick Sr MD Reason for consult: PAD , nonhealing ulcers Chief complaint: nonhealing ulcers, LLE claudication HPI: 55 year old with PMH uncontr olled DM, peripheral neuropathy, cataracts/blindness , MS in 2003, and tobacco ab use presented with for foot ulcers. Patient reports h/o claudication mostly on the right foot. Us s howed Increased differential peak systolic velocity for the [...] MG/DL LAST PM ). Additional medical history: MS in 2003 Additional surgical history: None Drug [...] Do ppler study -: R posterior tibialis. Neuro/FAILURE ANALYSIS ENGINEER: alert, oriented X 3 Skin: dry, normal [...] uncontr olled DM, peripheral neuropathy, cataracts/blindness , MS in 2003, and tobacco abuse presented with f or foot ulcers and PAD AFVSS b/l foot ulcers worse on lef t side but pain and claudication worse on the right side. labs an imaging reviewed plan: will discuss with attending plans for artogram n ext week continue medical managment podiatry and infectious disease onboard. at 2014 RPT #:[id number] END OF REPORT 2020-07-01 19:59:00-00:00 [facility] Vascular Surgery Consult Note REPORT#:[id number] REPORT STATUS: Signed DATE:07/01/20 TIME: 1958 PATIENT: HARJINDER COLUNGA UNIT #: [id number] ROOM/BED: [address] : [birth year] AGE: 55 SEX: M ATTEND: Divine Laureano ADM AUTHOR: Eliot Vale MD R1 * ALL edits or amendments must be made on the el [employer]/computer document * Eliot Vale 07/01/201958: History of Present Illness Requesting Clinician: Patrick Sr MD Reason for consult: PAD , nonhealing ulcers Chief complaint: nonhealing ulcers, LLE claudication HPI: 55 year old with PMH uncontr olled DM, peripheral neuropathy, cataracts/blindness , MS in 2003, and tobacco ab use presented [...] MG/DL LAST PM ). Additional medical history: MS in 2003 Additional surgical history: None Drug [...] Do ppler study -: R posterior tibialis. Neuro/FAILURE ANALYSIS ENGINEER: alert, oriented X 3 Skin: dry, normal [...] uncontr olled DM, peripheral neuropathy, cataracts/blindness , MS in 2003, and tobacco abuse presented with [...] ervention planned. appreciate consult. at 2013 RPT #:[id number] END OF REPORT 2020-07-01 19:59:00-00:00 [facility]) Vascular Surgery Consult Note REPORT#:[id number] REPORT STATUS: Signed DATE:07/01/20 TIME: 1958 PATIENT: HARJINDER COLUNGA UNIT #: [id number] ROOM/BED: [address] : [birth year] AGE: 55 SEX: M ATTEND: Arpit Laureano ADM AUTHOR: Eliot Vale MD R1 * ALL edits or amendments must be made on the [email or web address]/computer document * Eliot Vale 07/01/201958: History of Present Illness Requesting Clinician: Patrick Sr MD Reason for consult: PAD , nonhealing ulcers Chief complaint: nonhealing ulcers, LLE claudication HPI: 55 year old with PMH uncontr olled DM, peripheral neuropathy, cataracts/blindness , MS in 2003, and tobacco ab use presented [...] MG/DL LAST PM ). Additional medical history: MS in 2003 Additional surgical history: None Drug [...] Do ppler study -: R posterior tibialis. Neuro/FAILURE ANALYSIS ENGINEER: alert, oriented X 3 Skin: dry, normal [...] uncontr olled DM, peripheral neuropathy, cataracts/blindness , MS in 2003, and tobacco abuse presented with [...] ervention planned. appreciate consult. at [address] [place] [address] #:[id number] END OF REPORT 2020-07-01 17:50:00-00:00 [facility] Progress Note REPORT#:[id number] REPORT STATUS: Signed DATE:07/01/20 TIME: 1749 PATIENT: HARJINDER COLUNGA UNIT #: [id number] ROOM/BED: [address] : [birth year] AGE: 55 SEX: M ATTEND: Arpit Laureano [facility] AUTHOR: Nathanael Laureano * ALL edits or amendments must be made on the [employer]/computer document * Subjective Chief Complaint: Pain over [...] Impression By: [email or web address] - Donaldo Wen MD Vital Signs: Date Time Temp [...] Potassium 50 MG DAILY 06/29 0900 AC 0 07/01 PO 07/29 0901 0901 Nicotine 14 MG DAILY 06/29 0900 AC 07/01 TRANSDERM 07/29 09 0902 Insulin Human Lispro 5 UNITS AC 06/29 0730 AC 0 07/01 SUBQ 07/29 0731 1410 Insulin Glargine 15 UNITS BEDTIME 06/28 2100 AC 06/30 SUBQ 07/28 2100 202 Linezolid 600 MG Q12HR 06/28 2100 DC [...] of care Pain control at 2023 RPT #:[id number] END OF REPORT 2020-07-01 11:04:00-00:00 [facility] ([facility]) Infectious Dis. Progress Note REPORT#:[id number] REPORT STATUS: Signed DATE:07/01/20 TIME: 1103 PATIENT: HARJINDER COLUNGA UNIT #: [id number] ROOM/BED: [address] : 69 AGE: 55 SEX: M ATTEND: Arpit Laureano ADM AUTHOR: Anam Velez MD * ALL edits or amendments must be made on the el [employer]/computer document * Subjective Chief Complaint: 06-30-2020 FEELS FINE PODIATRY NOTED CX + STREPTOCOCCI 07-01-2020 HAD BED SIDE DEBRIDMENT DONE CX NOTED WOUNDS NOTED EDEUCATED ABOUT FOOT CARE ABD FOOT WEAR Objective General VS/I O: Microbiology: 06/28 1857 FOOT: Wound Culture - COMP BETA-HEMOLYTIC STREP GROUP B 06/28 185 FOOT: Gram Stain - COMP 06/28 152 BLOOD: Blood Culture - RES [...] Linezolid 600 MG Q12HR 06/28 2100 AC 07/01 PO 07/12 2058 09 Cefepime HCl 1 GM Q8H 06/28 2029 AC 07/01 Sterile Water 10 ML IV 07/124 Clonidine HCl 0.1 MG Q6H PRN PRN 06/28 2014 AC 06/29 PO 07/29 2015 1747 Enoxaparin Sodium 40 MG Q24H 06/28 2014 AC 06/19 2 SUBQ 07/29 2015 203 Dextrose/Water 25 ML ASDIR PRN 06/28 191 AC IV 07/29 1915 Glucagon 1 MG ASDIR PRN 06/28 191 AC IM 07/28 191 Insulin Human Lispro See Dose ASDIR 06/28 191 AC 06/30 Insts (1) SUBQ 07/28 1916 1842 Dose Instructions: (1)Insulin Human Lispro: LOW [...] the detection of o steomyelitis. Impression By: MerHVDarline Bai MD [facility] - MRI [...] PMH uncontrolled D M, peripheral neuropathy, cataracts/blindness, MS in 2003, and tobacco abuse presented for [...] MD on 0 07/01/20 at 1107 RPT #:[id number] END OF REPORT 2020-07-01 09:46:00-00:00 [facility]) Podiatry Progress Note REPORT#:[id number] REPORT STATUS: Signed DATE:07/01/20 TIME: 945 PATIENT: HARJINDER COLUNGA UNIT #: [id number] ROOM/BED: [address] : [birth year] AGE: 55 SEX: M ATTEND: Arpit Laureano ADM AUTHOR: Patrick Sr DPM R2 * ALL edits or amendments must be made on the el [employer]/computer document * General VS/I O: Last Documented: Result Date Time Pulse Ox 98 07/01 830 B/P 107/70 07/01 830 B/P Mean 82.7 07/01 830 Temp 36.3 07/01 08 Pulse 76 07/01 0831 Resp 16 07/01 830 O2 Delivery Room [...] ABIs report monphasic waveforms d istal to NURSE INTERN, stenosis on RIGHT and similar results on left below popliteal. vascular consul yana. WOund debridement performed to beefy red bleeding tissue. Dressed with aq uacell and DSD. Procedure 07/01/20 Pre-op dx: peter foot diabetic wounds Post op dx: same Procedure: wound debridement of peter feet location: bedside Surgeon: Dr. Marito Ray Child Protective Services Social Worker: Dr. Patrick Sr Complications: none EBL: < 5 cc [...] peter. discussed with attending at 1008 RPT #:[id number] END OF REPORT 2020-07-01 09:46:00-00:00 [facility] ([facility]) Podiatry Progress Note REPORT#:[id number] REPORT STATUS: Signed DATE:07/01/20 TIME: 945 PATIENT: HARJINDER COLUNGA UNIT #: [id number] ROOM/BED: [address] : 67 AGE: 55 SEX: M ATTEND: Arpit Laureano ADM AUTHOR: Patrick Sr DPM R2 * ALL edits or amendments must be made on the [email or web address]/computer document * General VS/I O: Last Documented: [...] ABIs report monphasic waveforms d istal to NURSE INTERN, stenosis on RIGHT and similar results on left below popliteal. vascular consul yana. WOund debridement performed to beefy red bleeding tissue. Dressed with aq uacell and DSD. Procedure 07/01/20 Pre-op dx: peter foot diabetic wounds Post op dx: same Procedure: wound debridement of peter feet location: bedside Surgeon: Dr. Marito Ray Child Protective Services Social Worker: Dr. Patrick Sr Complications: none EBL: < 5 cc [...] with attending at 1008 at 1135 RPT #:[id number] END OF REPORT 2020-06-30 22:00:00-00:00 [facility] Progress Note REPORT#:[id number] REPORT STATUS: Signed DATE:06/30/20 TIME: 2199 PATIENT: HARJINDER COLUNGA UNIT #: [id number] ROOM/BED: [address] : 67 AGE: 55 SEX: M ATTEND: Arpit Laureano ADM AUTHOR: Nathanael Laureano * ALL edits or amendments must be made on the [email or web address]/computer document * Subjective Chief Complaint: Pain over [...] collection. Mild peroneus longus tenosynovitis. Impression By: Aelx Bai MD [facility] - MRI [...] - DOP ART 1-2 LEVELS PETER 06/30 173 Report Impression - Status: [...] 1841 Insulin Glargine 15 UNITS BEDTIME 06/28 2100 A C 06/30 SUBQ 07/28 Linezolid 600 MG Q12HR [...] of care Pain control at 1504 RPT #:[id number] END OF REPORT 2020-06-30 18:01:00-00:00 [facility] ([facility]) Infectious Dis. Progress Note REPORT#:[id number] REPORT STATUS: Signed DATE:06/30/20 TIME: 1800 PATIENT: HARJINDER COLUNGA UNIT #: [id number] ROOM/BED: [address] : 67 AGE: 55 SEX: M ATTEND: Arpit Laureano ADM AUTHOR: Anam Velez MD * ALL edits or amendments must be made on the [email or web address]/computer document * Subjective Chief Complaint: 06-30-2020 FEELS FINE PODIATRY NOTED CX + STREPTOCOCCI Objective General VS/I O: Laboratory Tests 06/29/20 0845: [Embedded Image Not Available] 06/29/20 0631: [Embedded Image Not Available] Microbiology: 06/28 185 FOOT: Wound Culture - RES BETA-HEMOLYTIC STREP GROUP B 06/28 185 FOOT: Gram Stain - RES 06/28 152 BLOOD: Blood Culture - RES 06/28 1527 BLOOD: Blood Culture - RES Current Medications Sig/Bita Start time Last Medication Dose Route Stop Time Status Admin Losartan Potassium 50 MG DAILY 06/29 899 AC PO 07/29 09 1019 Nicotine 14 MG DAILY 06/29 09 [...] I O ending at 0700: 06/30 0700 03 1900 Intake Total 740 Output Total 403 [...] PMH uncontrolled D M, peripheral neuropathy, cataracts/blindness, MS in 2003, and tobacco abuse presented for [...] MD on 0 06/30/20 at 1804 RPT #:[id number] END OF REPORT 2020-06-30 08:46:00-00:00 [facility] ([facility]) Podiatry Progress Note REPORT#:[id number] REPORT STATUS: Signed DATE:06/30/20 TIME: 845 PATIENT: HARJINDER COLUNGA UNIT #: [id number] [address] AGE: 55 SEX: M ATTEND: Arpit Laureano ADM AUTHOR: Patrick Sr DPM R2 * ALL edits or amendments must be made on the [email or web address]/computer document * General VS/I O: Last Documented: [...] with attending at 0853 at 1135 RPT #:[id number] END OF REPORT 2020-06-30 08:46:00-00:00 [facility] ([facility]) Podiatry Progress Note REPORT#:[id number] REPORT STATUS: Signed DATE:06/30/20 TIME: 08 PATIENT: HARJINDER COLUNGA UNIT #: [id number] ROOM/BED: [facility] : 67 AGE: 55 SEX: M ATTEND: Georgi,Arpit pa Barber ADM AUTHOR: Patrick Sr DPVasquez R2 * ALL edits or amendments must be made on the [employer]/computer document * General VS/I O: Last Documented: [...] wet-to-dry. discussed with attending at 0853 RPT #:[id number] END OF REPORT 2020-06-29 23:21:00-00:00 [facility] Progress Note REPORT#:[id number] REPORT STATUS: Signed DATE:06/29/20 TIME: 2320 PATIENT: HARJINDER COLUNGA UNIT #: [id number] ROOM/BED: [address] : 69 AGE: 55 SEX: M ATTEND: Arpit Laureano ADM AUTHOR: Nathanael Laureano ta * ALL edits or amendments must be made on the el [employer] document * Subjective Chief Complaint: Pain over [...] % (Auto) (20.5 - 45.5 %) 24.1 [place] % (Auto) (5.5 - 11.7 %) 7.7 Eos % (Auto) (0.9 - 2.9 %) 1.5 Baso % (Auto) (0.2 - 1.0 %) 0.5 Neut # (Auto) (2.2 - 4.8 x10 3/uL) 4.30 Lymph # (Auto) (1.3 - 2.9 x10 3/uL) 1.57 [place] # (Auto) (0.3 - 0.8 x10 3/uL) [...] Impression By: Alex Bai MD Hematology: 06/29 0631 Hematology Hgb (14.0 - 18.0 g/dL) 13.2 L Hct (37.0 - 49.0 %) 39.0 Plt Count (130 - 400 x10 3/uL) 421 H Chemistry: 06/29 08 Chemistry Creatinine (0.7 - 1.3 mg/dL) 0.7 [...] the in trinsic foot musculature. Impression By: [email or web address] - Michael Bai MD Vital Signs: Date [...] 1719 Insulin Glargine 15 UNITS BEDTIME 06/28 2099 AC 06/29 SUBQ 07/28 2101 2106 Linezolid 600 MG Q12HR 06/28 2100 AC 06/29 PO 07/12 205 210 Sodium Chloride 5 ML Q12HR 06/28 [...] Insulin Human Lispro See Dose ASDIR 06/28 1915 AC 06/29 Insts (1) SUBQ 07/28 1916 1720 Sodium Chloride 5 ML ASDIR PRN [...] of care Pain control at 1942 RPT #:[id number] END OF REPORT 2020-06-29 09:35:00-00:00 [facility] ([facility]) Infect Disease Consult Note REPORT#:[id number] REPORT STATUS: Signed DATE:06/29/20 TIME: 934 PATIENT: HARJINDER COLUNGA UNIT #: [id number] ROOM/BED: [facility] : 69 AGE: 55 SEX: M ATTEND: Arpit Laureano [facility] AUTHOR: Harjinder Garner MD R1 * ALL edits or amendments must be made on the [email or web address]/computer document * History of Present Illness HPI: 55yoWM w/ PMH uncontrolled D M, peripheral neuropathy, cataracts/blindness, MS in 2003, and tobacco abuse presented for [...] MG/DL LAST PM ). Additional medical history: MS in 2003 Additional surgical history: None Drug [...] to the BL leg above the ankle. Neuro/FAILURE ANALYSIS ENGINEER: alert, oriented X 3 Results Findings/Data: Laboratory [...] (3.5 - 5.0 g/dL) 3.9 Laboratory Tests 06/2931 1527 Hematology WBC (5.0 - 12.0 x10 [...] (20.5 - 45.5 %) 24.1 17.3 L [place] % (Auto) (5.5 - 11.7 %) 7.7 6.0 Eos % (Auto) (0.9 - 2.9 %) 1.5 0.9 Baso % (Auto) (0.2 - 1.0 %) 0.5 0.7 Neut # (Auto) (2.2 - 4.8 x10 3/uL) 4.30 5.68 H Lymph # (Auto) (1.3 - 2.9 x10 3/uL) 1.57 1.32 [place] # (Auto) (0.3 - 0.8 x10 3/uL) [...] pH (5.0 - 8.0) 5.0 Ur Specific Rachel (<1.030) 1.029 Urine Protein (Negative mg/dL) 30 [...] PMH uncontrolled D M, peripheral neuropathy, cataracts/blindness, MS in 2003, and tobacco abuse presented for [...] Attestation needed: teaching physician at 1003 RPT #:[id number] END OF REPORT 2020-06-29 09:35:00-00:00 [facility] ([facility]) Infect Disease Consult Note REPORT#:[id number] REPORT STATUS: Signed DATE:06/29/20 TIME: 934 PATIENT: HARJINDER COLUNGA UNIT #: [id number] ROOM/BED: [address] : 67 AGE: 55 SEX: M ATTEND: Arpit Laureano [facility] AUTHOR: Harjinder Garner MD R1 * ALL edits or amendments must be made on the el [employer]/computer document * Harjinder Garner 06/29/20 0935: History of Present Illness HPI: 55yoWM w/ PMH uncontrolled D M, peripheral neuropathy, cataracts/blindness, MS in 2003, and tobacco abuse presented for [...] MG/DL LAST PM ). Additional medical history: MS in 2003 Additional surgical history: None Drug [...] Ox 97 06/29 07 B/P 142/88 06/29 728 B/P Mean 105.8 06/29 07 Temp 98.6 [...] to the BL leg above the ankle. Neuro/FAILURE ANALYSIS ENGINEER: alert, oriented X 3 Results Findings/Data: Laboratory [...] (20.5 - 45.5 %) 24.1 17.3 L [place] % (Auto) (5.5 - 11.7 %) 7.7 6.0 Eos % (Auto) (0.9 - 2.9 %) 1.5 0.9 Baso % (Auto) (0.2 - 1.0 %) 0.5 0.7 Neut # (Auto) (2.2 - 4.8 x10 3/uL) 4.30 5.68 H Lymph # (Auto) (1.3 - 2.9 x10 3/uL) 1.57 1.32 [place] # (Auto) (0.3 - 0.8 x10 3/uL) [...] pH (5.0 - 8.0) 5.0 Ur Specific Rachel (<1.030) 1.029 Urine Protein (Negative mg/dL) 30 [...] abnormality identified. Impression By: Randolph - Richard Linda, M.D. RADIOLOGY - XR FOOT 3 + V LT 03/10 1648 Report Impression - Status: SIGNED Entered: 06/28/2020 1703 IMPRESSION: No radiographic evidence of osteomyelitis. If in dicated, a bone scan or MRI are more sensitive for the detection of o steomyelitis. Impression By: [email or web address] - Michael Bai MD Diagnosis, Assessment Plan Free Text DxA P Notes Free text DxA P notes: ASSESSMENT 55yoWM w/ PMH uncontrolled D M, peripheral neuropathy, cataracts/blindness, MS in 2003, and tobacco abuse presented for [...] ellain g. Attestations Attestation needed: teaching physician Anam [...] MD on 0 06/29/20 at 1505 RPT #:[id number] END OF REPORT 2020-06-29 07:33:00-00:00 [facility]) Podiatry Progress Note REPORT#:[id number] REPORT STATUS: Signed DATE:06/29/20 TIME: 732 PATIENT: HARJINDER COLUNGA UNIT #: [id number] ROOM/BED: [address] : 67 AGE: 55 SEX: M ATTEND: GeorgiArpit pa Barber [facility] AUTHOR: Patrick Sr DPM R2 * ALL edits or amendments must be made on the [employer]/computer document * General VS/I O: Last Documented: [...] discussed with attending at 0738 at 1135 RPT #:[id number] END OF REPORT 2020-06-29 07:33:00-00:00 [facility] ([facility]) Podiatry Progress Note REPORT#:[id number] REPORT STATUS: Signed DATE:06/29/20 TIME: 732 PATIENT: HARJINDER COLUNGA UNIT #: [id number] ROOM/BED: [address] : 69 AGE: 55 SEX: M ATTEND: Arpit Laureano [facility] AUTHOR: Patrick Sr DPVasquez R2 * ALL edits or amendments must be made on the [email or web address]/computer document * General VS/I O: Last Documented: Result Date Time Pulse Ox 97 06/29 728 B/P 142/88 06/29 728 B/P Mean 105.8 06/29 728 Temp 37.0 06/29 07 Pulse 75 06/29 07 Resp 16 06/29 07 O2 Delivery Room [...] Betadine wet-to-dry. discussed with attending at 0738 [facility] #:[id number] END OF REPORT 2020-06-28 20:01:00-00:00 [id number] [facility] [address] [place] [address] PATIENT NAME: HARJINDER COLUNGA ADMIT DATE: 06/28/20 ACCOUNT NO: [id number] ROOM NO: [facility] AGE: 55 REPORT TYPE: HISTORY AND PHYSICAL SEX: Vasuqez ADMITTING PHYSICIAN:Nathanael Laureano ATTENDING PHYSICIAN:Nathanael Laureano ADMISSION DATE: 06/28/2020 CHIEF COMPLAINT: The patient was brought in with wound over the left foot. HISTORY OF PRESENT ILLNESS: This is a 55 -year-old male. The patient is legally blind, who moved from [facility] a a year ago and patient [...] plan. Dictated By: Nathanael Laureano MD WT: HP:CHOLLY/THU./NTS Conf#: [id number]/DID#: [id number] Authenticated by Nathanael Laureano MD O n 06/29/2020 09:55:13 PM at 5917 PATIENT NAME: HARJINDER COLUNGA 917 2020-06-28 18:47:00-00:00 [facility] ([facility]) History Physical - Adult REPORT#:[id number] REPORT STATUS: Signed DATE:06/28/20 TIME: 1846 PATIENT: HARJINDER COLUNGA UNIT #: [id number] ROOM/BED: [address] : 69 AGE: 55 SEX: M ATTEND: Arpit Laureano ADM AUTHOR: Nathanael Laureano * ALL edits or amendments must be made on the el [employer]/computer document * History Past medical history: Reports: Diabetes mellitus (BS 168 MG/DL LAST PM ). Additional medical history: MS in 2003 Additional surgical history: None Drug use: Denies recreational drugs Smoking status: Smoking status for patients 13 years old or old er: Current every day smoker Other social history: Hx of substance and alcoho l abuse Medication/Allergy-Vaccine Hx Allergies: Coded Allergies: No Known Allergies (10/08/19) at 1937 RPT #:[id number] END OF REPORT 2020-06-28 18:38:00-00:00 [id number] [facility] [address] [place] [address] PATIENT NAME: HARJINDER COLUNGA ADMIT DATE: 06/28/20 ACCOUNT NO: [id number] ROOM NO: [facility] AGE: 55 REPORT TYPE: CONSULTATION SEX: M [...] and heart disease. REVIEW OF SYSTEMS: As previ ously stated, with ankle pain, left ankle and [...] consult. Podiatry will follow . Dictated By: Patrick Sr DPM (R) for Marito Ray DPM WT: CON:CHOLLY/JOSELIN/LOTTIE Conf#: [id number]/DID#: [id number] PATIENT NAME: HARJINDER COLUNGA 917 Authenticated by Patrick Sr DPM On 06/19 07:09:44 AM Authenticated by Marito Ray DPM On 07/05/2020 11:31:10 AM at 1131 at 1131 PATIENT NAME: HARJINDER COLUNGA 917 2020-06-28 16:47:00-00:00 [facility]) EMERGENCY PROVIDER REPORT REPORT#:[id number] REPORT STATUS: Signed DATE:06/28/20 TIME: 1646 PATIENT: HARJINDER COLUNGA UNIT #: [id number] ROOM/BED: C.1101-A AGE: 55 SEX: M PCP PHYS: No Primary or Family Ph ysician SERVICE AUTHOR: Giovany Landa MD R1 * ALL edits or amendments must be made on the [email or web address]/computer document * Giovany Landa V 06/28/201646: HPI-General [...] are a. General Initial Greet Date/Time 06/28/20 1130 Presentation Chief Complaint Diabetic foot wound Hx [...] MG/DL LAST PM ). Additional Medical History MS in 2003 Additional Surgical History None Drug [...] L foot ulcer on ball of foot [id number] wit h scattered ulcer throughout the foot. [...] Consultation Consultation Referral/Consult Name Obed Lopez DPVasquez Associate Professor Of Surgery Called Podiatry Requested Call Time 165 Requested Call Date 06/28/20 Call Returned Call returned Call Returned Time 1657 Call Returned Date 06/28/20 Associate Professor Of Surgery Will see patient Patient Discharge Departure Disposition [...] (Auto) (20.5 - 45.5 %) 17.3 L [place] % (Auto) (5.5 - 11.7 %) 6.0 Eos % (Auto) (0.9 - 2.9 %) 0.9 Baso % (Auto) (0.2 - 1.0 %) 0.7 Neut # (Auto) (2.2 - 4.8 x10 3/uL) 5.68 H Lymph # (Auto) (1.3 - 2.9 x10 3/uL) 1.32 [place] # (Auto) (0.3 - 0.8 x10 3/uL) 0.46 Eos # (Auto) (0.0 - 0.2 x10 3/uL) 0.07 Baso # (Auto) (0.0 - 0.1 x10 3/uL) 0.05 Immature Gran % (0.0 - 2.0 %) 0.4 Nucleated RBC % (0 - 1.0 %) 0.0 Urines Urine Color (Yellow) Yellow Urine Appearance (Clear) Clear Urine pH (5.0 - 8.0) 5.0 Ur Specific Rachel (<1.030) 1.029 Urine Protein (Negative mg/dL) 30 [...] Impression By: [email or web address] - Michael Bai MD Re-Evaluation MDM Free [...] 97 06/28 1503 Temp 37.4 03/10 1503 O2 Delivery Room air 06/28 1458 All vital signs available at the time of this en try have been reviewed. Clinical Impression Clinical Impression Primary Impression: Diabetic foot ulcer associated with diabetes mellitus due to underlying condition Ruled Out Impressions: Diabetic foot ulcer Time of Impression 1748 Disposition Decision Admit Admit Physician Name Pavel Muñoz Admit Physician Hospitalist Request Time 1748 Request [...] Landa MD R1 on at 2008 RPT #:[id number] END OF REPORT 2020-06-28 16:47:00-00:00 [facility] ([facility]) EMERGENCY PROVIDER REPORT REPORT#:[id number] REPORT STATUS: Signed DATE:06/28/20 TIME: 1646 PATIENT: HARJINDER COLUNGA UNIT #: [id number] ROOM/BED: [address] AGE: 55 SEX: M PCP PHYS: No Primary or Family Ph ysician SERVICE AUTHOR: Giovany Landa MD R1 * ALL edits or amendments must be made on the [email or web address]/computer document * Giovany Landa V 06/28/20 1647: [...] are a. General Initial Greet Date/Time 06/28/20 2064 Presentation Chief Complaint Diabetic foot wound Hx [...] MG/DL LAST PM ). Additional Medical History MS in 2003 Additional Surgical History None Drug [...] L foot ulcer on ball of foot [id number] wit h scattered ulcer throughout the foot. [...] (Auto) (20.5 - 45.5 %) 17.3 L [place] % (Auto) (5.5 - 11.7 %) 6.0 Eos % (Auto) (0.9 - 2.9 %) 0.9 Baso % (Auto) (0.2 - 1.0 %) 0.7 Neut # (Auto) (2.2 - 4.8 x10 3/uL) 5.68 H Lymph # (Auto) (1.3 - 2.9 x10 3/uL) 1.32 [place] # (Auto) (0.3 - 0.8 x10 3/uL) 0.46 Eos # (Auto) (0.0 - 0.2 x10 3/uL) 0.07 Baso # (Auto) (0.0 - 0.1 x10 3/uL) 0.05 Immature Gran % (0.0 - 2.0 %) 0.4 Nucleated RBC % (0 - 1.0 %) 0.0 Urines Urine Color (Yellow) Yellow Urine Appearance (Clear) Clear Urine pH (5.0 - 8.0) 5.0 Ur Specific Rachel (<1.030) 1.029 Urine Protein (Negative mg/dL) 30 [...] Chloride 5 ML Q12HR 06/28 2100 AC 03/10 IV 06/29 0240 2124 Sodium Chloride 5 ML ASDIR PRN 06/28 1800 AC IV 06/29 0540 Consultation Consultation Referral/Consult Name Obed Lopez DPM Associate Professor Of Surgery Called Podiatry Requested Call Time 165 Requested Call Date 06/28/20 Call Returned Call returned Call Returned Time 1656 Call Returned Date 06/28/20 Associate Professor Of Surgery Will see patient Patient Discharge Departure Disposition Decision Admit Admit Physician Name Nathanael Laureano Rasheed 06/28/20 1716: Physical Exam Vital Signs Vital Signs First Documented: Result Date Time O2 Delivery Room air 06/28 1458 Pulse Ox 97 /10 1503 Temp 37.4 /10 1503 Pulse 109 03/10 1503 Resp 18 / 1503 B/P 129/81 03/10 1504 B/P Mean 97.0 / 1504 Last Documented: Result Date Time B/P 129/81 /10 1504 B/P Mean 97.0 /10 1504 Pulse [...] 1503 Pulse 109 03/10 1503 Resp 18 /10 1503 B/P 129/81 03/10 1504 B/P Mean 97.0 03/10 1504 Last Documented: Result Date Time B/P 129/81 /10 1504 B/P Mean 97.0 /10 1504 Pulse [...] 1749 Disposition Decision Admit Admit Physician Name Pavel Muñoz K MD Admit Physician Hospitalist Request Time 1748 [...] Landa MD R1 on at 2008 RPT #:[id number] END OF REPORT 2020-06-28 16:47:00-00:00 [facility]) EMERGENCY PROVIDER REPORT REPORT#:[id number] REPORT STATUS: Signed DATE:06/28/20 TIME: 1646 PATIENT: HARJINDER COLUNGA UNIT #: [id number] ROOM/BED: C1101-A AGE: 55 SEX: M PCP PHYS: No Primary or Family Ph ysician SERVICE AUTHOR: Giovany Landa MD R1 * ALL edits or amendments must be made on the el [employer]/computer document * Giovany Landa V 06/28/201646: HPI-General [...] are a. General Initial Greet Date/Time 06/28/20 3125 Presentation Chief Complaint Diabetic foot wound Hx [...] MG/DL LAST PM ). Additional Medical History MS in 2003 Additional Surgical History None Drug [...] L foot ulcer on ball of foot [id number] wit h scattered ulcer throughout the foot. [...] (Auto) (20.5 - 45.5 %) 17.3 L [place] % (Auto) (5.5 - 11.7 %) 6.0 Eos % (Auto) (0.9 - 2.9 %) 0.9 Baso % (Auto) (0.2 - 1.0 %) 0.7 Neut # (Auto) (2.2 - 4.8 x10 3/uL) 5.68 H Lymph # (Auto) (1.3 - 2.9 x10 3/uL) 1.32 [place] # (Auto) (0.3 - 0.8 x10 3/uL) 0.46 Eos # (Auto) (0.0 - 0.2 x10 3/uL) 0.07 Baso # (Auto) (0.0 - 0.1 x10 3/uL) 0.05 Immature Gran % (0.0 - 2.0 %) 0.4 Nucleated RBC % (0 - 1.0 %) 0.0 Urines Urine Color (Yellow) Yellow Urine Appearance (Clear) Clear Urine pH (5.0 - 8.0) 5.0 Ur Specific Rachel (<1.030) 1.029 Urine Protein (Negative mg/dL) 30 [...] Admin Sodium Chloride 10 ML ASDIR PRN 10 1800 AC IV 06/29 0540 Sodium Chloride [...] Consultation Consultation Referral/Consult Name Obed Lopez DPM Associate Professor Of Surgery Called Podiatry Requested Call Time 1657 Requested Call Date 06/28/20 Call Returned Call returned Call Returned Time 1657 Call Returned Date 06/28/20 Associate Professor Of Surgery Will see patient Patient Discharge Departure Disposition [...] Dolan DO on 03/11 at 0035 RPT #:[id number] END OF REPORT 2020-06-28 15:11:00-00:00 [facility] ([facility]) EMERGENCY PROVIDER REPORT REPORT#:[id number] REPORT STATUS: Signed DATE:06/28/20 TIME: 1511 PATIENT: HARJINDER COLUNGA UNIT #: [id number] ROOM/BED: [address] AGE: 55 SEX: M PCP PHYS: No Primary or Family Ph ysician SERVICE AUTHOR: Mi Ellis OPTIONS TRADER * ALL edits or amendments must be made on the [email or web address]/computer document * Provider in Triage - Adult Provider in Triage Initial Greet Date/Time 06/28/20 9335 Greet Note I have greeted and performed [...] MG/DL LAST PM ). Additional Medical History MS in 2003 Additional Surgical History None Patient History FATHER, . Family History: Heart disease MOTHER Family History: Diabetes Family History: Heart disease Drug Use Denies recreational drugs Smoking status: Smoking status for patients 13 years old or old er: Current every day smoker Other Social History Hx of substance and alcohol abuse Electronically Signed by Mi Ellis NP on at 2592 at 5988 RPT #:[id number] END OF REPORT 2020-06-28 15:11:00-00:00 [facility] ([facility]) EMERGENCY PROVIDER REPORT REPORT#:[id number] REPORT STATUS: Signed DATE:06/28/20 TIME: 151 PATIENT: HARJINDER COLUNGA UNIT #: [id number] ROOM/BED: AGE: 55 SEX: M PCP PHYS: No Primary or Family Ph ysician SERVICE DT: AUTHOR: Mi Ellis OPTIONS TRADER * ALL edits or amendments must be made on the [email or web address]/computer document * Provider in Triage - Adult Provider in Triage Initial Greet Date/Time 06/28/20 8305 Greet Note I have greeted and performed [...] MG/DL LAST PM ). Additional Medical History MS in 2003 Additional Surgical History None Patient History FATHER, . Family History: Heart disease MOTHER Family History: Diabetes Family History: Heart disease Drug Use Denies recreational drugs Smoking status: Smoking status for patients 13 years old or old er: Current every day smoker Other Social History Hx of substance and alcohol abuse Electronically Signed by Mi Ellis NP on at 1512 RPT #:[id number] END OF REPORT 2020-02-27 14:13:00-00:00 [facility] ([facility]) EMERGENCY PROVIDER REPORT REPORT#:[id number] REPORT STATUS: Signed DATE:02/27/20 TIME: 1413 PATIENT: HARJINDER COLUNGA UNIT #: [id number] ROOM/BED: AGE: 54 SEX: M PCP PHYS: No Primary or Family Ph ysician SERVICE AUTHOR: Rod Cerda NP * ALL edits or amendments must be made on the [email or web address]/computer document * HPI-Rash/Abscess/Cellulitis General Confirmed Patient Yes [...] MG/DL LAST PM ). Additional Medical History MS in 2003 Additional Surgical History None Drug [...] Room air 02/26 1358 Temp 36.7 02/26 135 Pulse 96 02/26 1358 Resp [...] Well appearing Ears/Nose/Throat Ears/Nose/Throat Airway patent, Mucous membran es moist, Pharynx NL Resp/Chest Respiratory/Chest Breath sounds [...] Oriented X3, Speech NL, No motor de ficits, No sensory deficits Interpretation Diagnostics Lab Results [...] 10-25 MG Recent Impressions: ULTRASOUND - [facility] 02/26 1518 Report Impression - Status: SIGNED Entered: 02/27/2020 1550 IMPRESSION: 1. Soft tissue edema without discrete dominant f luid collection or cystic or solid mass lesion. Impression By: [email or web address] - Donaldo Tang M.D. Lab Statement Laboratory studies reviewed and considered in [facility] medical decision-making. Re-Evaluation MDM Re-Evaluation/Progress Re-Evaluation/Progress [...] WITH MEALS Patient Instructions ED Cellulitis Referrals [facility] Departure Forms WORK/SCHOOL EXCUSE VARIABLE Discharge Note [...] symptoms should prompt an immediate return to [facility] or the closest emergency department or a call to 911. at 0750 RPT #:[id number] END OF REPORT 2020-02-27 14:13:00-00:00 [facility] ([facility]) EMERGENCY PROVIDER REPORT REPORT#:[id number] REPORT STATUS: Signed DATE:02/27/20 TIME: 1413 PATIENT: HARJINDER COLUNGA UNIT #: [id number] ROOM/BED: AGE: 54 SEX: M PCP PHYS: No Primary or Family Ph ysician SERVICE AUTHOR: Rod Cerda OPTIONS TRADER * ALL edits or amendments must be made on the [email or web address] document * PrashantRod 02/27/20 1413: HPI-Rash/Abscess/Cellulitis General Confirmed Patient Yes [...] MG/DL LAST PM ). Additional Medical History MS in 2003 Additional Surgical History None Drug [...] 10-25 MG Recent Impressions: ULTRASOUND - US [facility] NON [facility] 02/26 1518 Report Impression - Status: SIGNED Entered: 02/27/2020 1550 IMPRESSION: 1. Soft tissue edema without discrete dominant f luid collection or cystic or solid mass lesion. Impression By: [email or web address] - Donaldo Tang M.D. Lab Statement Laboratory studies reviewed and considered in [facility] medical decision-making. Re-Evaluation MDM Re-Evaluation/Progress Re-Evaluation/Progress [...] Patient Instructions ED Cellulitis Referrals [facility] Departure Forms WORK/SCHOOL EXCUSE VARIABLE Discharge Note [...] symptoms should prompt an immediate return to [facility] or the closest emergency department or a [...] were reviewe d. I agree with this PA/sheriff detective findings, exam and plan. at 0750 at 0310 RPT #:[id number] END OF REPORT 2019-10-08 12:43:00-00:00 [facility] ([facility]) EMERGENCY PROVIDER REPORT REPORT#:[id number] REPORT STATUS: Signed DATE:10/08/19 TIME: 1243 PATIENT: HARJINDER COLUNGA UNIT #: [id number] ROOM/BED: AGE: 54 SEX: M PCP PHYS: No Primary or Family Ph ysician SERVICE AUTHOR: Brennan Dupont MD * ALL edits or amendments must be made on the [email or web address] document * HPI-General Illness Free Text HPI [...] MG/DL LAST PM ). Additional Medical History MS in 2003 Additional Surgical History None Drug [...] clubbing, edema, Musculoskeletal: normal inspection, normal tone Neuro/FAILURE ANALYSIS ENGINEER: alert oriented x 3, nonfocal Skin: warm, [...] (Auto) (25.0 - 55.0 %) 16.6 L [place] % (Auto) (0.0 - 10.0 %) 6.5 Eos % (Auto) (0.0 - 5.0 %) 4.0 Baso % (Auto) (0.0 - 1.0 %) 0.2 Neut # (Auto) (1.8 - 7.7 K/mm3) 4.11 Lymph # (Auto) (1.0 - 5.0 K/mm3) 0.95 L [place] # (Auto) (0 - 0.8 K/mm3) 0.37 Eos # (Auto) (0.0 - 0.5 K/mm3) 0.23 Baso # (Auto) (0.0 - 0.2 K/mm3) 0.01 Add Manual Diff NO Urines Urine Color (YELLOW) YELLOW Urine Appearance (CLEAR) SLIGHTLY HAZY H Urine pH (5.0 - 8.0) 6.0 Ur Specific Rachel (1.001 - 1.035) 1.020 Urine Protein (Neg [...] - CT ABD PELVIS W/O CONT 10/07 3532 Report Impression - Status: SIGNED Entered: 10/08/2019 1882 IMPRESSION: 1. No evidence of renal or ureteral stones or of obstructive uropathy. 2. No evidence of acute abdominal or pelvic abno rmalities. Location code: [facility] Impression By: Brenda Mcdaniel M.D. Re-Evaluation MDM [...] Referrals Tu Herndon MD at 1723 RPT #:[id number] END OF REPORT
[2022-09-26] MEDS ORDERED: NA CHLORIDE 0.9% 1,000 ML ONE (23:35)
[2022-09-27 00:11] LABS: Absolute Lymphocytes (CBC) 1.4 K/uL (0.7-4.9); Hematocrit 30.9 % (39.6-49.0); Lymphocytes % 20.3 % (15.3-44.8); MCV 85.7 fL (80-100); RBC Red Blood Cell Count 3.61 M/uL (4.33-5.43)
[2022-09-27 00:25] LABS: Albumin 3.1 g/dL (3.4-5.0); Bilirubin Total 0.2 mg/dL (0.2-1.0); Potassium 5.7 mEq/L (3.5-5.1); Protein, Total 7.3 g/dL (6.4-8.2)
[2022-09-27 00:56] LABS: Protime INR 1.34
[2022-09-27] MEDS ORDERED: ALBUTEROL 2.5 MG/3 ML NEB SOL ONE (02:33)
[2022-09-27] MEDS ORDERED: NA CHLORIDE 0.9% 1,000 ML ONE ×2 (02:34→05:53)
[2022-09-27] MEDS ORDERED: INSULIN -REGULAR HUMAN 50 UNIT/0.5 ML ML ONE (02:34)
[2022-09-27] MEDS ORDERED: D10W 250 ML IV ONE (02:35)
[2022-09-27 02:52] LABS: Arterial Blood Carboxyhemoglob 3.1 % (0-1.5); Blood Gas Oxyhemoglobin 90.8 % (94-97); Blood O2 Saturation 95.3 % (92-98.5)
[2022-09-27] MEDS ORDERED: SOD POLYSTYREN SUL 15 GM/60 ML UCUP ONE (02:57)
[2022-09-27] MEDS ORDERED: VANCOMYCIN 1 GM/VIAL ONE (02:57)
[2022-09-27] MEDS ORDERED: SODIUM BICARB 50 MEQ/50ML VIAL ONE (02:58)
[2022-09-27] MEDS ORDERED: NA CHLORIDE 0.9% 250 ML ONE (02:58)
[2022-09-27] MEDS ORDERED: CALCIUM GLUCONATE 1 GM IVPB 1 GM/50 ML BAG IV ONE (02:58)
--- NOTE | 2022-09-27 02:59 | ER ---
Nurse's Notes [facility] Name: Shivam Block Age: 57 yrs Sex: Male : 1965 Arrival Date: 09/26/2022 Time: 22:53 Bed 15 Private MD: Diagnosis: Hyperkalemia;Other injury of unspecified kidney, initial encounter;Volume depletion, unspecified Presentation: 09/26 22:59 Chief complaint: EMS states: 57 year old male reports generalized weakness that started ha1 around 9:00 PM. He reports having a seizure around 8:30 PM and was doing ok after it. After, he took his blood pressure medication and started to feel really weak. 22:59 Method Of Arrival: EMS: [facility] ha1 22:59 Coronavirus screen: Vaccine status: Patient reports receiving the 2nd dose of the covid ha1 vaccine. Ebola Screen: No symptoms or risks identified at this time. Initial Sepsis Screen: Does the patient meet any 2 criteria? No. Patient's initial sepsis screen is negative. Does the patient have a suspected source of infection? No. Patient's initial sepsis screen is negative. Risk Assessment: Do you want to hurt yourself or someone else? Patient reports no desire to harm self or others. Onset of symptoms was September 27, 2022. 22:59 Acuity: TERRANCE 3 ha1 Triage Assessment: 22:59 General: Appears uncomfortable, Behavior is calm, cooperative. Pain: Denies pain. ha1 Neuro: Level of Consciousness is awake, alert, obeys commands, Oriented to person, place, time, Reports weakness in generalized. Cardiovascular: Patient's skin is warm and dry. Cardiovascular: Patient's skin is warm and dry. Rhythm is sinus rhythm. Respiratory: Airway is patent Respiratory effort is even, unlabored, Respiratory pattern is regular, symmetrical. GI: Abdomen is round non-distended. : No signs and/or symptoms were reported regarding the genitourinary system. Derm: Skin is pink, warm \T\ dry. 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 Circulation, motion, and sensation intact. Range of motion: intact in all extremities. Historical: - Allergies: 22:59 Fish Containing Products; ha1 22:59 SEAFOOD; ha1 - Home Meds: 22:59 Amiodarone Oral [Active]; lisinopril Oral [Active]; Metoprolol Tartrate Oral [Active]; ha1 eloquis [Active]; sertraline oral [Active]; - PMHx: 22:59 Atrial fibrillation; diabetes mellitus; Hypertensive disorder; ha1 - PSHx: 22:59 bilateral BKA; ha1 - Immunization history:: Adult Immunizations unknown. - Social history:: Smoking status: Patient reports the use of cigarette tobacco products, smokes one pack cigarettes per day. Screenin:59 Abuse screen: Denies threats or abuse. Denies injuries from another. Nutritional ha1 screening: No deficits noted. Tuberculosis screening: No symptoms or risk factors identified. 22:59 [facility] ED Fall Risk Assessment (Adult) History of falling in the last 3 months, ha1 including since admission No falls in past 3 months (0 pts) Confusion or Disorientation No (0 pts) Intoxicated or Sedated No (0 pts) Impaired Gait Yes (1 pt) Mobility Assist Device Used Altered Elimination Yes (1 pt) Score/Fall Risk Level 3 or more points = High Risk Oriented to surroundings, Maintained a safe environment, Educated pt \T\ family on fall prevention, incl call for assistance when getting out of bed, Hourly rounding (assess needs \T\ fall precautionary measures) done. Assessment: 23:00 Reassessment: see triage assessment. ha1 09/27 00:00 Reassessment: Patient and/or family updated on plan of care and expected duration. Pain ha1 level reassessed. Patient is alert, oriented x 3, equal unlabored respirations, skin warm/dry/pink. 01:00 Reassessment: Patient and/or family updated on plan of care and expected duration. Pain ha1 level reassessed. Patient is alert, oriented x 3, equal unlabored respirations, skin warm/dry/pink. Patient denies pain at this time. Patient states feeling better. Patient states symptoms have improved. 02:00 Reassessment: Patient and/or family updated on plan of care and expected duration. Pain ha1 level reassessed. Patient is alert, oriented x 3, equal unlabored respirations, skin warm/dry/pink. 03:00 Reassessment: Patient and/or family updated on plan of care and expected duration. Pain ha1 level reassessed. Patient is alert, oriented x 3, equal unlabored respirations, skin warm/dry/pink. 16:49 Reassessment: attempted to call report, Janel stated that they have not assigned the ko1 patient yet because they have to get rid of a patient first. She stated they would call me back. Vital Signs: 09/26 22:59 BP 90 / 60; Pulse 67; Resp 15 S; Temp 98.8; Pulse Ox 97% on R/A; Weight 87.54 kg; ha1 23:30 BP 99 / 59; Pulse 67; Resp 18 S; Pulse Ox 97% on R/A; ha1 09/27 00:30 BP 124 / 77; Pulse 65; Resp 16; Pulse Ox 99% on R/A; ha1 01:30 BP 117 / 55; Pulse 64; Resp 17 S; Pulse Ox 98% on R/A; ha1 02:30 BP 112 / 70; Pulse 71; Resp 15 S; Pulse Ox 100% on R/A; ha1 ED Course: 09/26 22:59 Patient arrived in ED. rv1 22:59 Arm band placed on right wrist. ha1 22:59 Patient has correct armband on for positive identification. Bed in low position. Call ha1 light in reach. Side rails up X 1. 23:00 Salvador Miller PA is PHCP. cp 23:00 Juliocesar Saba MD is Attending Physician. cp 23:19 Althea Trevino, [place] is Primary Nurse. ha1 23:35 Inserted saline lock: 22 gauge in right forearm, using aseptic technique. Blood ha1 collected. 23:49 Blood Culture Adult (2) Sent. ha1 23:49 CBC with Diff Sent. ha1 23:49 CMP Sent. ha1 23:49 Lactate w/ 2H reflex if indic. Sent. ha1 23:49 Protime (+inr) Sent. ha1 23:49 Ptt, Activated Sent. ha1 09/27 00:13 Chest Single View XRAY In Process Unspecified. EDMS 00:16 CT Head Brain wo Cont In Process Unspecified. EDMS 00:16 Blood Culture Adult (2) Sent. ha1 00:16 CBC with Diff Sent. ha1 00:16 CMP Sent. ha1 00:16 Lactate w/ 2H reflex if indic. Sent. ha1 00:16 Protime (+inr) Sent. ha1 00:16 Ptt, Activated Sent. ha1 01:09 Triage completed. ha1 02:49 Donaldo Bragg MD is Hospitalizing Provider. cp 03:00 Straight cath inserted, using sterile technique, 16 Fr. Specimen obtained. 1000 ML of ha1 urine output. Notified care provider Brian. 03:28 No provider procedures requiring assistance completed. Patient admitted, IV remains in ha1 place. Administered Medications: 09/26 23:45 Drug: NS 0.9% IV 1000 ml Route: IV; Rate: 1 bolus; Site: right forearm; ha1 09/27 02:28 Drug: D50W IVP 50 ml Route: IVP; Site: right forearm; ha1 03:00 Follow up: Response: No adverse reaction ha1 02:30 Drug: Albuterol Inhalation 2.5 mg Route: Inhalation; ha1 02:32 Drug: Insulin Regular Human IVP 10 units {Co-Signature: ll3 (Tom Moore RN).} ha1 Route: IVP; Site: right antecubital; 03:00 Follow up: Response: No adverse reaction ha1 02:41 Drug: NS 0.9% IV 1000 ml Route: IV; Rate: 100 ml/hr; Site: right forearm; ha1 02:45 Drug: Sodium Bicarbonate IVP 1 amp Route: IVP; Site: right forearm; ha1 03:00 Follow up: Response: No adverse reaction ha1 02:50 Drug: Albuterol Inhalation 2.5 mg Route: Inhalation; ha1 02:50 Drug: Calcium Gluconate IVPB 1 grams Route: IVPB; Infused Over: 60 mins; Site: right ha1 forearm; 03:00 Follow up: Response: No adverse reaction ha1 03:00 Drug: Kayexalate PO 30 grams Route: PO; ha1 04:00 Follow up: Response: No adverse reaction ha1 03:20 Drug: Albuterol Inhalation 2.5 mg Route: Inhalation; ha1 07:27 Follow up: Response: No adverse reaction ha1 03:55 Drug: vancoMYCIN IVPB 1 grams Route: IVPB; Infused Over: 2 hrs; Site: right forearm; ha1 05:50 Follow up: Response: No adverse reaction; IV Status: Completed infusion; IV Intake: ha1 250ml Medication: 03:28 VIS not applicable for this client. ha1 Intake: 05:50 IV: 250ml; Total: 250ml. ha1 Outcome: 02:58 Decision to Hospitalize by Provider. cp 03:28 Admitted to ER Hold. Please see [facility] for further documentation. ha1 03:28 Condition: stable 18:41 Patient left the ED. ko1 Signatures: Dispatcher [employer] EDMS Salvador Miller PA PA cp Ayala, Heidy, RN RN ha1 Sonya Ibanez RN RN ko1 Annelise Garcia 1 Tom Moore RN ll3 Corrections: (The following items were deleted from the chart) 01:09 09/26 22:59 Chief complaint: EMS states: 57 year old male reports generalized weakness ha1 that started around 9:00 PM. He reports having a seizure around 8:30 PM and was doing ok after it ha1
--- NOTE | 2022-09-27 02:59 | EDPHYS ---
Physician Documentation [facility] Name: Shivam Block Age: 57 yrs Sex: Male : 1965 Arrival Date: 09/26/2022 Time: 22:53 Bed 15 Private MD: ED Physician Juliocesar Saba HPI: 09/26 23:10 This 57 yrs old Male presents to ER via EMS with complaints of Weakness. cp 23:10 The patient's problem is reported as weakness, that is generalized. Onset: The cp symptoms/episode began/occurred today. 23:10 Duration: The episode is continuous. cp 23:10 Context: occurred at home. Associated signs and symptoms: Pertinent negatives: cp abdominal pain, chest pain, confusion, diarrhea, headache, vomiting. Patient's baseline: Neuro: alert and fully oriented, Motor: no deficits, Ambulation: unable to walk, bka, Speech: normal. 23:10 EMS reports patient reports having seizure this evening at about 2030 and upon their cp arrival, patient with systolic pressure in the 80's. Historical: - Allergies: 22:59 Fish Containing Products; ha1 22:59 SEAFOOD; ha1 - Home Meds: 22:59 Amiodarone Oral [Active]; lisinopril Oral [Active]; Metoprolol Tartrate Oral [Active]; ha1 eloquis [Active]; sertraline oral [Active]; - PMHx: 22:59 Atrial fibrillation; diabetes mellitus; Hypertensive disorder; ha1 - PSHx: 22:59 bilateral BKA; ha1 - Immunization history:: Adult Immunizations unknown. - Social history:: Smoking status: Patient reports the use of cigarette tobacco products, smokes one pack cigarettes per day. ROS: 23:15 Constitutional: Negative for fever. cp 23:15 Eyes: Negative for injury, pain, redness, and discharge. cp 23:15 Cardiovascular: Negative for chest pain, palpitations. 23:15 Respiratory: Negative for cough, shortness of breath, wheezing. 23:15 Abdomen/GI: Negative for abdominal pain, vomiting, diarrhea, constipation. 23:15 ENT: Negative for drainage from ear(s), ear pain, sore throat, difficulty swallowing, cp difficulty handling secretions. 23:15 Skin: Positive for wound to left lower leg amputation site. 23:15 Neuro: Positive for weakness, Negative for altered mental status, syncope. 23:15 All other systems are negative. Exam: 23:20 Constitutional: The patient appears in no acute distress, alert, awake, cp non-diaphoretic, non-toxic, well developed, well nourished. 23:20 Head/Face: Normocephalic, atraumatic. cp 23:20 Eyes: Periorbital structures: appear normal, Pupils: equal, round, and reactive to light and accomodation, Conjunctiva: normal, no exudate, no injection, Sclera: no appreciated abnormality, Lids and lashes: appear normal, bilaterally. 23:20 ENT: External ear(s): are unremarkable, Nose: is normal, Mouth: Lips: moist, Oral mucosa: pink and intact, moist, Posterior pharynx: is normal, airway is patent, no erythema, no exudate. 23:20 Neck: C-spine: vertebral tenderness, is not appreciated, crepitus, is not appreciated, ROM/movement: is normal, is supple, without pain, no range of motions limitations, no meningismus. 23:20 Chest/axilla: Inspection: normal, Palpation: is normal, no crepitus, no tenderness. 23:20 Cardiovascular: Rate: normal, Edema: is not appreciated, JVD: is not appreciated. 23:20 Respiratory: the patient does not display signs of respiratory distress, Respirations: normal, no use of accessory muscles, no retractions, labored breathing, is not present, Breath sounds: are clear throughout, no decreased breath sounds, no stridor, no wheezing. 23:20 Abdomen/GI: Inspection: abdomen appears normal, Bowel sounds: active, all quadrants, Palpation: abdomen is soft and non-tender, in all quadrants. 23:20 Back: pain, is absent, ROM is normal. 23:20 Musculoskeletal/extremity: Extremities: bilateral BKA. cp 23:20 Skin: left BKA site with open wound, mild erythema and swelling noted, no drainage expressed. Vital Signs: 22:59 BP 90 / 60; Pulse 67; Resp 15 S; Temp 98.8; Pulse Ox 97% on R/A; Weight 87.54 kg; ha1 23:30 BP 99 / 59; Pulse 67; Resp 18 S; Pulse Ox 97% on R/A; ha1 06/09 00:30 BP 124 / 77; Pulse 65; Resp 16; Pulse Ox 99% on R/A; ha1 01:30 BP 117 / 55; Pulse 64; Resp 17 S; Pulse Ox 98% on R/A; ha1 02:30 BP 112 / 70; Pulse 71; Resp 15 S; Pulse Ox 100% on R/A; ha1 MDM: 09/26 03:00 Data reviewed: vital signs, nurses notes, lab test result(s), EKG, radiologic studies, cp CT scan, plain films. 23:00 Patient medically screened. 09/27 03:00 Consideration of Admission/Observation Patient was admitted/placed on observation. 03:00 Differential diagnosis: CVA, TIA, drug effects, seizure, kidney failure. Management of patient was discussed with the following: Hospitalist: Brian Herrera, [employer] will admit after discussion. Historians other than the Patient: EMS: provides HPI. Care significantly affected by the following chronic conditions: Diabetes, Hypertension. 09/26 23:08 Order name: Blood Culture Adult (2) 09/26 23:08 Order name: CBC with Diff; Complete Time: 00:41 09/27 00:43 Interpretation: Normal except: RBC 3.61; HGB 10.2; HCT 30.9; RDW 17.4. 09/26 23:08 Order name: CMP; Complete Time: 00:41 09/27 01:14 Interpretation: Normal except: K 5.7; CL 109; GLUC 137; BUN 49; CRE 1.91; GFR 41; ALB cp 3.1; GLOB 4.2; A/G 0.7. 09/26 23:08 Order name: Lactate w/ 2H reflex if indic.; Complete Time: 00:41 09/26 23:08 Order name: Protime (+inr); Complete Time: 01:14 09/27 02:04 Interpretation: Reviewed. 09/26 23:08 Order name: Ptt, Activated; Complete Time: 01:14 09/26 23:08 Order name: Urinalysis w/ reflexes cp 09/26 23:08 Order name: Troponin HS; Complete Time: 00:41 09/27 00:39 Order name: Glucose, Ancillary Testing; Complete Time: 00:41 EDMS 09/27 02:40 Order name: ABG la1 09/27 02:40 Order name: UDS la1 09/27 04:36 Order name: Glucose, Ancillary Testing EDMS 09/27 05:26 Order name: Valproic Acid (Depakene) Level EDMS 09/27 08:03 Order name: Glucose, Ancillary Testing EDMS 09/27 09:43 Order name: Basic Metabolic Panel EDMS 09/27 12:35 Order name: Glucose, Ancillary Testing EDMS 09/27 16:53 Order name: Glucose, Ancillary Testing EDMS 09/26 23:08 Order name: Chest Single View XRAY cp 09/26 23:08 Order name: CT Head Brain wo Cont cp 09/27 08:56 Order name: US EDMS 09/27 09:15 Order name: MRI EDMS 09/26 23:08 Order name: EKG; Complete Time: 23:09 cp 08 23:08 Order name: Accucheck; Complete Time: 00:26 cp 08 23:08 Order name: Cardiac monitoring; Complete Time: 23:49 cp 08 23:08 Order name: EKG - Nurse/Tech; Complete Time: 00:13 cp 08 23:08 Order name: IV Saline Lock - Large Bore; Complete Time: 23:49 cp 08 23:08 Order name: Labs collected and sent; Complete Time: 23:49 cp 08 23:08 Order name: O2 Per Protocol; Complete Time: 23:49 cp 08 23:08 Order name: O2 Sat Monitoring; Complete Time: 23:49 cp 08 23:08 Order name: Vital Signs; Complete Time: 23:49 cp Administered Medications: 09/26 23:45 Drug: NS 0.9% IV 1000 ml Route: IV; Rate: 1 bolus; Site: right forearm; ha1 09/27 02:28 Drug: D50W IVP 50 ml Route: IVP; Site: right forearm; ha1 03:00 Follow up: Response: No adverse reaction 1 02:30 Drug: Albuterol Inhalation 2.5 mg Route: Inhalation; 02:32 Drug: Insulin Regular Human IVP 10 units {Co-Signature: lori3 (Tom Moore RN).} ha1 Route: IVP; Site: right antecubital; 03:00 Follow up: Response: No adverse reaction ha1 02:41 Drug: NS 0.9% IV 1000 ml Route: IV; Rate: 100 ml/hr; Site: right forearm; ha1 02:45 Drug: Sodium Bicarbonate IVP 1 amp Route: IVP; Site: right forearm; ha1 03:00 Follow up: Response: No adverse reaction ha1 02:50 Drug: Albuterol Inhalation 2.5 mg Route: Inhalation; ha1 02:50 Drug: Calcium Gluconate IVPB 1 grams Route: IVPB; Infused Over: 60 mins; Site: right ha1 forearm; 03:00 Follow up: Response: No adverse reaction ha1 03:00 Drug: Kayexalate PO 30 grams Route: PO; ha1 04:00 Follow up: Response: No adverse reaction ha1 03:20 Drug: Albuterol Inhalation 2.5 mg Route: Inhalation; ha1 07:27 Follow up: Response: No adverse reaction ha1 03:55 Drug: vancoMYCIN IVPB 1 grams Route: IVPB; Infused Over: 2 hrs; Site: right forearm; ha1 05:50 Follow up: Response: No adverse reaction; IV Status: Completed infusion; IV Intake: ha1 250ml Disposition: 09/28 16:13 Chart complete. cp Disposition Summary: 09/27/22 02:58 Hospitalization Ordered Hospitalization Status: Inpatient Admission cp Provider: Donaldo Bragg cp Condition: Stable cp Problem: new cp Symptoms: have improved cp Bed/Room Type: Standard cp Location: Telemetry/MedSurg (Inpatient)(09/27/22 16:26) eb Room Assignment: [facility](09/27/22 16:26) eb Diagnosis - Hyperkalemia cp - Other injury of unspecified kidney, initial encounter cp - Volume depletion, unspecified cp Forms: - Medication Reconciliation Form cp - SBAR form cp Signatures: Dispatcher [employer] EDSalvador Tinsley PA PA cp Cary Ortiz RN RN cg Botello, Elizabeth eb Ayala, Heidy, RN RN ha1 Tom Moore RN ll3 Corrections: (The following items were deleted from the chart) 09/27 03:08 02:58 Telemetry/MedSurg (Inpatient) cp cg 03:08 02:58 cp cg 16:26 03:08 [facility]UST ER HOLD cg eb 16:26 03:08 ERHOLD- cg eb
--- NOTE | 2022-09-27 03:15 | P.HP ---
Certification for Inpatient Patient admitted to: Observation With expected LOS: <2 Midnights Patient will require the following post-hospital care: None Practitioner: I am a practitioner with admitting privileges, knowledge of patient current condition, hospital course, and medical plan of care. Services: Services provided to patient in accordance with Admission requirements found in Title 42 Section 412.3 of the Code of Federal Regulations <Brian Herrera - Last Filed: 09/27/22 03:11> Patient History Date of Service: 09/27/22 Reason for admission: JENNYFER, hyperkalemia History of Present Illness: 57-year-old male with history of A-fib, aeb-psansvu-pzfrdrttq diabetes, hypertension, seizure disorder presents to the emergency department with chief complaint of weakness, seizure, low blood pressure. He reports that he had a seizure this evening lasting for approximately 1 minute, he denies losing consciousness reports all his limbs were affected, this is reportedly similar to his previous seizures. He is currently on Keppra 500 mg twice daily for seizures, he was transitioned from Depakote to Keppra during his last recent admission. He was evaluated in the emergency department his labs were significant for creatinine 1.91 potassium 5.7, baseline creatinine around 1. His blood pressure was also initially low 90/60, has improved to the 1 teens/120s after IV fluids. Denies fever or chills, no leukocytosis noted. Patient does have wound presents to the left leg stump area which has been debrided on 09/20/[address] Brown. Does not appear infected currently. He will be admitted for management of JENNYFER, hyperkalemia. - Past Medical/Surgical History Diabetic: Yes -: atrial fib -: HTN -: DM -: Previous HI -: bilateral BKA Psychosocial/ Personal History: Patient lives at home with his aunt - Family History Mother -: Heart disease, Diabetes, Cancer Father -: Heart disease - Social History Smoking Status: Current every day smoker Counseled patient to stop smoking for: less than 10 minutes Alcohol use: No CD- Drugs: No Caffeine use: Yes Place of Residence: Home <Brian Herrera - Last Filed: 09/27/22 03:11> Date of Service: 09/27/22 <Donaldo Bragg - Last Filed: 09/27/22 16:11> Allergies shellfish derived Allergy (Verified 08/15/22 22:16) Itching/Hives/Rash Home Medications: Amiodarone HCl [Cordarone*] 200 mg PO DAILY 08/15/22 Apixaban [Eliquis] 5 mg PO BID 08/15/22 Atorvastatin Calcium 40 mg PO BEDTIME 08/15/22 Gabapentin 400 mg PO TID 08/15/22 Metoprolol Tartrate 25 mg PO BID 08/15/22 Sertraline [Zoloft*] 100 mg PO DAILY 08/15/22 lisinopriL [Lisinopril] 5 mg PO DAILY 08/15/22 Ciprofloxacin HCl [Cipro] 500 mg PO BID #20 tab 09/21/22 Hydrocodone 10/APAP 325 [[place] 10/325*] 1 tab PO Q6H PRN #15 tab 09/21/22 Metformin HCl [Glucophage*] 500 mg PO BIDWM #60 tab 09/21/22 levETIRAcetam [Keppra] 500 mg PO BID #60 tab 09/21/22 Review of Systems 10-point ROS is otherwise unremarkable General: Weakness, Malaise Neurological: Seizures <Brian Herrera - Last Filed: 09/27/22 03:11> Physical Examination - Physical Exam General: Alert, In no apparent distress, Oriented x3 HEENT: Atraumatic, PERRLA, Mucous membr. moist/pink, EOMI, Sclerae nonicteric Neck: Supple, 2+ carotid pulse no bruit, No LAD, Without JVD or thyroid abnormality Respiratory: Clear to auscultation bilaterally, Normal air movement Cardiovascular: Regular rate/rhythm, Normal S1 S2 Gastrointestinal: Normal bowel sounds, No tenderness Musculoskeletal: No tenderness, Other (INDERJIT BKA, Healing wound Left leg stump) Integumentary: No rashes Neurological: Normal speech, Normal strength at 5/5 x4 extr, Normal tone, Normal affect - Studies Laboratory Data (last 24 hrs) 09/26/22 23:43: PT 14.7 H, INR 1.34, APTT 31.7 09/26/22 23:43: Sodium 138, Potassium 5.7 H, BUN 49 H, Creatinine 1.91 H, Glucose 137 H, Total Bilirubin 0.2, AST 19, ALT 25, Alkaline Phosphatase 79 09/26/22 23:43: WBC 7.10, Hgb 10.2 L, Hct 30.9 L, Plt Count 333 <Brian Herrera - Last Filed: 09/27/22 03:11> - Studies Laboratory Data (last 24 hrs) 09/26/22 23:43: PT 14.7 H, INR 1.34, APTT 31.7 09/26/22 23:43: Sodium 138, Potassium 5.7 H, BUN 49 H, Creatinine 1.91 H, Glucose 137 H, Total Bilirubin 0.2, AST 19, ALT 25, Alkaline Phosphatase 79 09/26/22 23:43: WBC 7.10, Hgb 10.2 L, Hct 30.9 L, Plt Count 333 <Donaldo Bragg - Last Filed: 09/27/22 16:11> Assessment and Plan - Plan Assessment: JENNYFER/hyperkalemia Seizure-history of Atrial fibrillation on chronic anticoagulation Diabetes mellitus type 7mlr-ieoqiia-svapduoxn Hypertension 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 Continue IV fluids, blood pressure responding well at this time, hold lisinopril. Nephrology consult in place, will obtain renal ultrasound. Seizure-history of Reviewed previous records, patient supposed to be on Keppra 5 mg p.o. twice daily. Had 1 seizure today lasting approximate 1 minute described without loss of consciousness but affecting movement in all extremities. Continue Keppra. Atrial fibrillation on chronic anticoagulation Continue Eliquis, other home medications once verified. Currently rate co ntrolled. Diabetes mellitus type [id number]-fnndipm-fxllvbrmg ACHS Accu-Chek, sliding scale insulin. Hypertension Hold lisinopril/any other LILY or ARB, continue other home medications. 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 DVT PPX: Continue Eliquis Code status: Full Discharge Plan: Home Plan to discharge in: 24 Hours - Advance Directives Does patient have a Living Will: No Does patient have a Durable POA for Healthcare: No - Code Status/Comfort Care Code Status Assessed: Yes (Full code) Critical Care: No Time Spent Managing Pts Care (In Minutes): 55 <Brian Herrera - Last Filed: 09/27/22 03:11> Physician Review: Patient Assessed, Agree with Above Assessment and Plan <Donaldo Bragg - Last Filed: 09/27/22 16:11>
[2022-09-27] MEDS ORDERED: ONDANSETRON 4 MG/2 ML VIAL IV PRN (03:30)
[2022-09-27] MEDS ORDERED: ACETAMINOPHEN 500 MG TAB PO PRN (03:30)
[2022-09-27] MEDS: NA CHLORIDE 0.9% 1,000 ML IV SCH ×4 (03:30→22:40)
[2022-09-27 04:20] LABS: Specific Gravity 1.017 (1.005-1.030); Urine Bacteria None Seen /HPF (<20); Urine Bilirubin NEGATIVE (Negative); Urine Blood Negative (Negative); Urine Clarity Clear (Clear); Urine Color Light-Yellow (Yellow); Urine Glucose NEGATIVE (Negative); Urine Mucus Slight /HPF (None Seen); Urine Protein TRACE (Negative); Urine RBC None Seen /HPF (None Seen); Urine Urobilinogen Normal (Normal); Urine pH 5.5 (5.0-7.0)
[2022-09-27 04:43] LABS: Barbiturates NEGATIVE (NEGATIVE); Benzodiazepines NEGATIVE (NEGATIVE); Cocaine NEGATIVE (NEGATIVE); METHAMPHETAM NEGATIVE (NEGATIVE); Methadone NEGATIVE (NEGATIVE); Opiates NEGATIVE (NEGATIVE); Phencyclidine NEGATIVE (NEGATIVE); THC Cannibis NEGATIVE (NEGATIVE)
[2022-09-27 05:09] VITALS: BMI 37.5
[2022-09-27] MEDS: INSULIN -REGULAR HUMAN 50 UNIT/0.5 ML ML SQ SCH ×4 (07:30→21:00)
--- NOTE | 2022-09-27 08:56 | RAD REPORT ---
EXAM DESCRIPTION: US - Renal Ultrasound-Complete - 09/27/2022 4:02 am CLINICAL HISTORY: myra Flank pain COMPARISON: No comparisons FINDINGS: Both kidneys are normal in size, shape and echotexture. The right kidney measures 10.5 x 4.8 x 4.4 cm. No hydronephrosis, focal mass or perinephric fluid. The left kidney measures 9.5 x 3.8 x 3.7 cm. No hydronephrosis, focal mass or perinephric fluid. 7 mm benign cyst. The urinary bladder is incompletely distended without gross abnormality seen. IMPRESSION: Unremarkable renal sonogram.
[2022-09-27] MEDS ORDERED: levETIRAcetam 500 MG TAB PO SCH (09:00)
[2022-09-27] MEDS: APIXABAN 5 MG TABLET PO SCH ×2 (09:00→19:43)
--- NOTE | 2022-09-27 09:12 | RAD REPORT ---
EXAM DESCRIPTION: MRI - Brain Wo Cont - 09/27/2022 8:47 am CLINICAL HISTORY: seizure-like episode Headache, drowsiness, CVA symptomology COMPARISON: Head Brain Wo Cont dated 09/27/2022 TECHNIQUE: Multi-sequence, multiplanar MR imaging of the brain was performed without contrast. FINDINGS: No intracranial hemorrhage, hydrocephalus or extra-axial fluid collections.Moderate conflu ent T2/FLAIR hyperintensity in the periventricular and deep white matter is present compatible with c hronic microvascular ischemic changes. No edema or shift of midline structures. No findings to suspec t brain mass. DWI is negative for acute CVA. Midline structures are normally formed. Mastoid air cells and paranasal sinuses are clear. IMPRESSION: Negative for acute CVA or other acute intracranial abnormality. No finding suspicious for potential seizure focus seen.
[2022-09-27] MEDS ORDERED: APIXABAN 5 MG TABLET ONE (09:19)
[2022-09-27] MEDS ORDERED: levETIRAcetam 500 MG TAB ONE (09:19)
[2022-09-27 09:43] LABS: Potassium 5.1 mEq/L (3.5-5.1)
--- NOTE | 2022-09-27 12:29 | P.CNS ---
Date of Consult: 09/27/22 Reason for Consult: JENNYFER Requesting Physician: Donaldo Bragg Chief Complaint: JENNYFER, hyperkalemia History of Present Illness: 57-year-old male with history of A-fib, ipd-wjwrqni-jqgiyfqcr diabetes with hx of b/l BKAs (Lt more recently in Apr), pre or Type 1 essential hypertension, unspecified disorder seizure disorder presented last night to the emergency department with chief complaint of weakness, seizure, low blood pressu re. He reported that he had a brief seizure yesterday evening lasting for approximately 1 minute without LOC. He was evaluated in the emergency department and his initial labs were significant for creatinine 1.91 potassium 5.7. Those labs have improved with hydration. Pt denies N/V/D but is a poor historian. He denies CKD. He denies NSAIDs use. Allergies shellfish derived Allergy (Verified 08/15/22 22:16) Itching/Hives/Rash Home Medications: Amiodarone HCl [Cordarone*] 200 mg PO DAILY 08/15/22 Apixaban [Eliquis] 5 mg PO BID 08/15/22 Atorvastatin Calcium 40 mg PO BEDTIME 08/15/22 Gabapentin 400 mg PO TID 08/15/22 Metoprolol Tartrate 25 mg PO BID 08/15/22 Sertraline [Zoloft*] 100 mg PO DAILY 08/15/22 lisinopriL [Lisinopril] 5 mg PO DAILY 08/15/22 Ciprofloxacin HCl [Cipro] 500 mg PO BID #20 tab 09/21/22 Hydrocodone 10/APAP 325 [[place] 10/325*] 1 tab PO Q6H PRN #15 tab 09/21/22 Metformin HCl [Glucophage*] 500 mg PO BIDWM #60 tab 09/21/22 levETIRAcetam [Keppra] 500 mg PO BID #60 tab 09/21/22 - Past Medical/Surgical History Diabetic: Yes -: atrial fib -: HTN -: DM -: Previous CT -: bilateral BKA Psychosocial/ Personal History: Patient lives at home with his aunt - Family History Mother Medical History: Heart disease, Diabetes, Cancer Father Medical History: Heart disease - Social History Smoking Status: Current every day smoker Alcohol use: No CD- Drugs: No Caffeine use: Yes Place of Residence: Home Review of Systems General: Weakness Respiratory: Unremarkable Cardiovascular: Unremarkable Gastrointestinal: Unremarkable Genitourinary: Unremarkable Musculoskeletal: As per HPI Integumentary: Lesions Neurological: Weakness, Seizures Physical Examination Temp Pulse Resp BP Pulse Ox 98.8 F 63 16 128/75 99 09/27/22 08:00 09/27/22 08:00 09/27/22 08:00 09/27/22 08:00 09/27/22 08:00 General: In no apparent distress, Other (Awakens but appears lethargic, slow to respond) HEENT: Atraumatic, Normocephalic Neck: Supple Cardiovascular: No edema, Regular rate/rhythm Gastrointestinal: Soft and benign, No tenderness, Other (Obese) Musculoskeletal: Other (b/l BKA, Lt stump covered) Integumentary: Other (Lt stump dressed so did no examine) Neurological: Other (Lethargic but awakens easily, responds briefly but some responses are difficult to make out, unclear what baseline.) Laboratory Data (last 24 hrs) 09/26/22 23:43: PT 14.7 H, INR 1.34, APTT 31.7 09/26/22 23:43: Sodium 138, Potassium 5.7 H, BUN 49 H, Creatinine 1.91 H, Glucose 137 H, Total Bilirubin 0.2, AST 19, ALT 25, Alkaline Phosphatase 79 09/26/22 23:43: WBC 7.10, Hgb 10.2 L, Hct 30.9 L, Plt Count 333 Conclusions/Impression: A/P) 1. Stage 1 JENNYFER episodes, prior JENNYFER episode(s) more notably in July but have usually quickly turned around suggesting pre-renal state, relative hypotension, concurrent use of ACEi causing functional rather than intrinsic injuries have likely been the cause. 2. Cont IVF hydration 3. UA on admission not too impressive 4. Prior UAs have shown trace dipstick proteinuria, would maintain off ACEi at this time 5. Renal u/s not too remarkable 6. Hyperkalemia resolved post hydration, initial therapy 7. Seizure management per IM service Kevon Wallace MD, POONAM
--- NOTE | 2022-09-27 14:46 | EKG ---
Test Date: 2022-09-27 Test Time: 00:21:48 Machine Assembler For Puller Over: WILIAN MEASUREMENT RESULTS: Intervals: Rate: 64 VT: 188 QRSD: 138 QT: 414 QTc: 427 Bernard: P: 60 VT: 188 QRS: 258 T: 42 INTERPRETIVE STATEMENTS: Normal sinus rhythm Right bundle branch block Inferior infarct, age undetermined Abnormal ECG Compared to ECG 09/18/2022 11:15:37 Sinus bradycardia no longer present Myocardial infarct finding still present Electronically Signed On 09-27-22 14:44:20 CDT by Joshua Diaz
[2022-09-27] MEDS: levETIRAcetam 500 MG TAB PO SCH (19:43)
--- NOTE | 2022-09-27 20:29 | CON ---
Reason For Consultation: Consultation called because of more seizures. History Of Present Illness: Mr. Block is a 57-year-old patient with multiple medical problems includ ing hypertension, atrial fibrillation, diabetes mellitus, bilateral tbfcg-mhz-hctf amputation, previo us myocardial infarctions, who was just admitted to [facility] with multiple seizures and wa s at a low therapeutic level, on Depakote. He had surgery by Dr. Brown to do an jmwvb-ouh-qiwx amp utation and did have a seizure prior to that and was put on Keppra after a loading dose of 1000 mg, g iving 500 mg twice daily. He was previously again on Depakote, but the level was just at 52 and that was discontinued as he was put to the Keppra. He said, at home, apparently had an additional seizur e while taking the Keppra. He denies any worsening trigger factors, but he is not sleeping well. At [facility], blood work which includes complete blood count differential, did not suggest urinary tra ct infection. His arterial blood gas; however, did show elevated pCO2 with pH low at 7.31. His crea tinine was elevated to 1.43 consistent with mild dehydration. His liver function studies were unrema rkable. Calcium 8.5. Urinalysis remarkable only for trace of protein and Depakote level today was 3 6.3. His brain MRI done earlier today showed no evidence of an acute ischemic or hemorrhagic change. There was moderate confluent T2 FLAIR hyperintensities in the periventricular and deep white matter compatible with chronic small vessel ischemic disease. He has not had an EEG as the machine was bro ira. At this point, the patient is lying in bed and no ongoing recurrent seizures. He is on Eliquis 5 mg twice daily and Keppra still 500 mg twice daily. Past Medical History: As noted above. Allergies: SHELLFISH. Family History: Heart disease, diabetes, and cancer in mother and heart disease in father. Social History: Patient smokes up to a pack of cigarettes daily. Denies alcohol use. Denies caffei nated beverages or drug use. Medications: Amiodarone 200 mg daily, Eliquis 5 mg twice daily, atorvastatin 40 mg at bedtime, gabap entin 4 mg 3 times daily, metoprolol 25 mg twice daily, Zoloft 100 mg daily, lisinopril 50 mg daily, ciprofloxacin 500 mg twice daily, [place] 10/325 one every 6 hours as needed, Keppra 500 mg twice daily , and Glucophage 500 mg twice daily. Physical Examination: Vital Signs: Blood pressure 146/71, pulse 72, respiratory rate 16, temperature 98.8, oxygen saturati on 95% to 99% on room air. General: Mr. Block is resting in bed, in no significant distress. HEENT: He is normocephalic, atraumatic. He does have poor dentition. Neurologic: Otherwise, no cranial nerve deficits. Chest: No abnormal findings. Heart: Irregularly irregular. Abdomen: Soft. He has bilateral amputations of the lower extremities, which are swawx-qsa-nyls ampu tations. Assessment: Mr. Block is a 57-year-old patient with multiple medical problems, which are listed abov e. He does not have an anatomical lesion to explain his seizures. He is on Keppra 500 mg twice rosette y with no evidence of side effects. Plan: We will increase Keppra to 750 mg twice daily. He may continue with his rest of his comorbid conditions per primary team. The patient is instructed that 7 to 8 hours of sleep at night is very i mportant to decrease his seizure recurrence. He may use melatonin 5 to 10 mg at night as needed. In addition, minimizing stress, engaging in regular exercise are helpful, activities to decrease the ri sk of additional seizures. He again may be discharged home with Keppra 750 mg twice daily and may fo llow up. He was at [facility] system, but may follow up with Dr. Aguilera's clinic within a month. ANA/JEREMY Voice ID: [id number] Report ID: [id number]
[2022-09-28] MEDS: NA CHLORIDE 0.9% 1,000 ML IV SCH ×4 (03:30→14:14)
[2022-09-28 03:40] LABS: Absolute Lymphocytes (CBC) 1.3 K/uL (0.7-4.9); Hematocrit 29.7 % (39.6-49.0); Lymphocytes % 31.6 % (15.3-44.8); MCV 86.6 fL (80-100); MPV 7.8 fL (7.6-11.3); RBC Red Blood Cell Count 3.43 M/uL (4.33-5.43)
[2022-09-28 04:28] LABS: Potassium 5.2 mEq/L (3.5-5.1); Thyroid Stimulating Hormone 1.29 uIU/mL (0.358-3.740)
[2022-09-28] MEDS: INSULIN -REGULAR HUMAN 50 UNIT/0.5 ML ML SQ SCH ×3 (07:30→16:30)
[2022-09-28] MEDS: APIXABAN 5 MG TABLET PO SCH (09:21)
[2022-09-28] MEDS: levETIRAcetam 500 MG TAB PO SCH (09:22)
[2022-09-28 10:24] VITALS: O2SAT 99
[2022-09-28 16:35] VITALS: TEMP 96.9
--- NOTE | 2022-09-28 16:45 | P.DS ---
Admission Date: 09/27/22 Discharge Date: 09/28/22 Disposition: ROUTINE DISCHARGE Discharge Condition: GOOD Reason for Admission: JENNYFER, hyperkalemia Consultations: 1. Nephrology 2. Neurology Hospital Course: DIAGNOSES: # KDIGO Stage II Acute Kidney Injury with Hyperkalemia suspect due to Dehydration and Lisinopril # Possible Seizure in Known Seizure Disorder # Hypertensive Urgency # Chronic Atrial Fibrillation on Apixaban # Type II Diabetes Mellitus # S/P Bilateral Below-the Knee Amputations with Left Stump Wound HOSPITAL COURSE: Mr. Shivam Block is a 57 year old male with a past medical history significant for chronic atrial fibrillation, type II diabetes mellitus, and hypertension who was admitted to the [facility] on 09/27/2022 for an acute kidney injury with hyperkalemia. He was admitted to the Medicine service. His chest x-ray revealed, "no acute cardiopulmonary disease." His renal ultrasound revealed, "unremarkable renal sonogram." Nephrology was consulted and he was evaluated by Dr. Wallace. His lisinopril was held and he was started on IV fluids. Over the course of his hospitalization, his potassium and creatinine levels improved. His potassium remains borderline at 5.2. I reviewed with Dr. Wallace, who has cleared him for discharge with outpatient follow-up. Of note, there was a question of a seizure-like episode at home. His CT head revealed, "no acute intracranial abnormalities." His MRI brain revealed, "negative for acute CVA or other acute intracranial abnormality. No finding suspicious for potential seizure focus seen." EEG is currently unavailable in our facility. He had no recurrent events while hospitalized. Neurology was consulted and he was evaluated by Dr. Aguilera. He recommended increasing his levetiracetam to 750 mg BID. He has cleared him for discharge from a neurologic standpoint. In regards to his left residual limb wound, it is clean and dry. I spoke with Dr. Brown, who will follow up his wound care as an outpatient. On 09/28/2022, he was seen on rounds and deemed medically stable for discharge. He was discharged with instructions to schedule follow-up appointments with his PCP (Dr. Tao), with Nephrology (Dr. Wallace), with Neurology (Dr. Aguilera) and with General Surgery (Dr. Brown). He was provided prescriptions for amlodipine and levetiracetam. He was advised to stop lisinopril as this may increase his potassium levels. He was given the opportunity to ask questions and reported no further questions. Furthermore, all questions were answered to the best of my ability. A copy of this discharge summary will be sent to the above providers to facilitate continuity of care. Today, I personally spent 25 minutes on his case, of which greater than 50% of t he time was spent in patient education, counseling, and coordination of care as described above. Vital Signs/Physical Exam: Temp Pulse Resp BP Pulse Ox 96.9 F 62 16 185/75 H 99 09/28/22 16:00 09/28/22 16:00 09/28/22 16:00 09/28/22 16:09/28/22 16:00 General: Alert, In no apparent distress, Oriented x3 HEENT: Atraumatic, Mucous membr. moist/pink, Sclerae nonicteric Neck: JVD not distended Respiratory: Clear to auscultation bilaterally, Normal air movement Cardiovascular: Regular rate/rhythm, Normal S1 S2, No gallops, No rubs, No murmurs Gastrointestinal: Normal bowel sounds, Soft and benign, Non-distended, No tenderness, No rebound, No guarding Musculoskeletal: Other (S/P bilateral BKA. Small wound on lateral left residual limb is clean/dry.) Integumentary: No rashes Neurological: Normal speech, Normal affect Laboratory Data at Discharge: WBC 4.00 thou/uL (4.3-10.9) L 09/28/22 03:31 Hgb 9.5 g/dL (13.6-17.9) L 09/28/22 03:31 Hct 29.7 % (39.6-49.0) L 09/28/22 03:31 Plt Count 291 thou/uL (152-406) 09/28/22 03:31 PT 14.7 SECONDS (9.5-12.5) H 09/26/22 23:43 INR 1.34 09/26/22 23:43 APTT 31.7 SECONDS (24.3-36.9) 09/26/22 23:43 Sodium 142 mEq/L (136-145) 09/28/22 03:31 Potassium 5.2 mEq/L (3.5-5.1) H 09/28/22 03:31 BUN 27 mg/dL (7-18) H 09/28/22 03:31 Creatinine 0.96 mg/dL (0.70-1.30) 09/28/22 03:31 Glucose 141 mg/dL (74-106) H 09/28/22 03:31 Total Bilirubin 0.2 mg/dL (0.2-1.0) 09/26/22 23:43 AST 19 U/L (15-37) 09/26/22 23:43 ALT 25 U/L (16-61) 09/26/22 23:43 Alkaline Phosphatase 79 U/L (45-117) 09/26/22 23:43 Home Medications: Amiodarone HCl [Cordarone*] 200 mg PO DAILY 08/15/22 Apixaban [Eliquis] 5 mg PO BID 08/15/22 Atorvastatin Calcium 40 mg PO BEDTIME 08/15/22 Gabapentin 400 mg PO TID 08/15/22 Metoprolol Tartrate 25 mg PO BID 08/15/22 Sertraline [Zoloft*] 100 mg PO DAILY 08/15/22 Hydrocodone 10/APAP 325 [[place] 10/325*] 1 tab PO Q6H PRN #15 tab 09/21/22 Metformin HCl [Glucophage*] 500 mg PO BIDWM #60 tab 09/21/22 Amlodipine [Norvasc*] 5 mg PO DAILY #30 tab 09/28/22 Levetiracetam [Keppra] 750 mg PO BID #60 tab 09/28/22 New Medications: Levetiracetam [Keppra] 750 mg PO BID #60 tab Amlodipine [Norvasc*] 5 mg PO DAILY #30 tab Physician Discharge Instructions: 1. Please call and schedule a follow-up appointment with your PCP (Dr. Tao) in 3-5 days 2. Please call and schedule a follow-up appointment with Nephrology (Dr. Wallace) in 3-5 days Please stop taking lisinopril as this can raise your potassium level You have been started on amlodipine for blood pressure. Please check your blood pressure 2 times per day and keep it in a journal. Please bring this journal to your follow-up appointment with Dr. Wallace, so that he can adjust your blood pressure medications as needed. Please have him repeat your potassium and kidney function levels at this appointment 3. Please call and schedule a follow-up appointment with General Surgery (Dr. Brown) in 5-7 days Please have him manage your wound care to your left amputation site 4. Please call and schedule a follow-up appointment with Neurology (Dr. Aguilera) in 5-7 days - Please have him refill your seizure medications Diet: Renal Activity: Ad marisela Followup: Kevon Wallace [ACTIVE - CAN ADMIT] - Praful Brown MD [ACTIVE - CAN ADMIT] - Thad Aguilera MD [ASSOCIATE-ACTIVE - CAN ADMIT] - Time spent managing pt's care (in minutes): 25
[2022-09-28] MEDS ORDERED: AMLODIPINE 5 MG TAB PO SCH (17:00)
[2022-09-28 17:55] VITALS: BP 159/76
[2022-09-28] MEDS ORDERED: METOPROLOL TAR 25 MG TAB PO SCH (21:00)
--- NOTE | 2022-09-29 13:00 | RAD REPORT ---
EXAM DESCRIPTION: Chest Single View CLINICAL HISTORY: 57 years Male, weakness TECHNIQUE: 1 view (Single frontal view of the chest) COMPARISON: None. FINDINGS: Rightward patient rotation. LINES AND TUBES: None. CARDIOVASCULAR STRUCTURES: Normal heart size. No pulmonary venous congestion. LUNGS: No confluent areas of acute consolidation. PLEURA: No layering pleural effusions. No pneumothorax. BONES: No acute osseous abnormality of the thorax. IMPRESSION: 1. No acute cardiopulmonary disease. Electronically signed by: Fahad Dixon MD 09/27/2022 12:19 AM CDT Due to temporary technical issues with the PACS/Fluency reporting system, reports are being signed by the in house radiologists without review as a courtesy to insure prompt reporting. The interpreting radiologist is fully responsible for the content of the report.
--- NOTE | 2022-09-29 13:18 | RAD REPORT ---
CLINICAL HISTORY: Weakness. TECHNIQUE: 5 mm axial images of the intracranial structures were obtained without intravenous contra st. Coronal and sagittal reformatted images were obtained. COMPARISON: 09/05/2022. DOSE OPTIMIZATION: This facility uses dose optimization techniques as appropriate to perform exams, i ncluding at least one of the following techniques: 1. Automated exposure control. 2. Adjustment of the mA and/or kV according to patient size (this includes techniques or standardized protocols for targeted exams where dose is matched to the indication/reason for exam, i.e. extremiti es or head). 3. Use of iterative reconstructive technique. FINDINGS: No abnormal acute extracerebral fluid collections are demonstrated. The cortical sulci, ventricles, and cisterns are within normal limits. There are mild chronic bilateral periventricular migration of white matter changes. There is atherosclerosis about the cavernous portions of the internal carotid arteries. There are no areas of altered attenuation to suggest acute hemorrhage, acute infarct, or mass lesio n. The visualized portions of the paranasal sinuses and mastoid air cells are remarkable for moderate-si zed mucus retention cyst within the left maxillary sinus.. There are old nasal bone fractures. IMPRESSION: 1. No acute intracranial abnormalities. Electronically signed by: Allan Blanco MD 09/27/2022 12:30 AM CDT Due to temporary technical issues with the PACS/Fluency reporting system, reports are being signed by the in house radiologists without review as a courtesy to insure prompt reporting. The interpreting radiologist is fully responsible for the content of the report.
== END 2022-09-27 19:40 | disposition home or self-care (01) ==
LOC: ER 22:53 → ERHOLD 09-27 02:46 → 2ND 09-27 18:20
PROVIDERS: ADMIT Internal Medicine; ATTEND Internal Medicine
DX: N17.9 Acute kidney failure, unspecified (principal); E87.5 Hyperkalemia; E86.9 Volume depletion, unspecified; I48.11 Longstanding persistent atrial fibrillation; E11.9 Type 2 diabetes mellitus without complications; I16.0 Hypertensive urgency; I10 Essential (primary) hypertension; R56.9 Unspecified convulsions; R53.1 Weakness; F17.210 Nicotine dependence, cigarettes, uncomplicated; I95.9 Hypotension, unspecified; Z91.013 Allergy to seafood; Z82.49 Family history of ischemic heart disease and other diseases of the circulatory system; Z80.9 Family history of malignant neoplasm, unspecified; Z89.511 Acquired absence of right leg below knee; Z79.01 Long term (current) use of anticoagulants; Z89.512 Acquired absence of left leg below knee; Z98.890 Other specified postprocedural states
CPT/HCPCS: 93005; 87040 ×2; 85025 ×2; 81001; 80048 ×2; 36415 ×2; 82140; 85610; 82947 ×9; 80164; 83605; 85730; 84443; 83036; 84484; 82607; 80053; 80307; 70450; 71045; 70551; 76770; 82805; 51702; 99285; 36600; J1815; J0610; J7613; J7050; J7030 ×4; G0378 ×3

== ENCOUNTER 2022-10-14 00:38 | Observation (INO) | payer OTHER ==
--- OUTSIDE RECORDS SUMMARY | 2022-10-14 01:02 | XMS REPORT | Continuity of Care Document ---
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 capsule 00:00: 04:59 mouth in [place] 00 :00 [facility] and 1 capsule at noon and 1 capsule in the evening. Do all this for 90 days. gabapentin 2022-0 2022- Yes [id number] 400mg Take 1 [facility] 400 mg 5-25 08-24 capsule by ity of capsule 00:00: 04:59 mouth in [place] 00 :00 [facility] and 1 capsule at noon and 1 capsule in the evening. Do all this for 90 days. gabapentin 2022-0 2022- Yes [id number] 400mg Take 1 [facility] 400 mg 5-25 08-24 capsule by ity of capsule 00:00: 04:59 mouth in [place] 00 :00 the Medical morning Branch and 1 capsule at noon and 1 capsule in the evening. Do all this for 90 days. gabapentin 202-0 202- Yes [id number] 400mg Take 1 [facility] 400 mg 5-25 08-24 capsule by ity of capsule 00:00: 04:59 mouth in [place] 00 :00 the Medical morning Branch and 1 capsule at noon and 1 capsule in the evening. Do all this for 90 days. gabapentin 202-0 202- Yes [id number] 400mg Take 1 [facility] 400 mg 5-25 08-24 capsule by ity of capsule 00:00: 04:59 mouth in [place] 00 :00 the Medical morning Branch and 1 capsule at noon and 1 capsule in the evening. Do all this for 90 days. gabapentin 2022-0 202- Yes [id number] 400mg Take 1 [facility] 400 mg 5-25 08-24 capsule by ity of capsule 00:00: 04:59 mouth in [place] 00 :00 the [facility] morning [place] and 1 capsule at noon and 1 capsule in the evening. Do all this for 90 days. gabapentin 2022-0 202- Yes [id number] 400mg Take 1 [facility] 400 mg 5-25 08-24 capsule by ity of capsule 00:00: 04:59 mouth in [place] 00 :00 the [facility] morning Branch and 1 capsule at noon and 1 capsule in the evening. Do all this for 90 days. gabapentin 2022-0 202- Yes [id number] 400mg Take 1 [facility] 400 mg 5-25 08-24 capsule by ity of capsule 00:00: 04:59 mouth in [place] 00 :00 the [facility] morning Branch and 1 capsule at noon and 1 capsule in the evening. Do all this for 90 days. gabapentin 2022-0 202- Yes [id number] 400mg Take 1 [facility] 400 mg 5-25 08-24 capsule by ity of capsule 00:00: 04:59 mouth in [place] 00 :00 the Medical morning Branch and 1 capsule at noon and 1 capsule in the evening. Do all this for 90 days. gabapentin 2022-0 202- Yes [id number] 400mg Take 1 [facility] 400 mg 5-25 08-24 capsule by ity of capsule 00:00: 04:59 mouth in [place] 00 :00 the [facility] morning Branch and 1 capsule at noon and 1 capsule in the evening. Do all this for 90 days. gabapentin 2022- Yes [id number] 400mg Take 1 [facility] 400 mg 5-25 [...] and 1 Each in the evening. Miscellaneo 2023-0 Yes Bilateral U nivers [facility] Medical 5-23 [...] Each in the evening. SERTraline 2022-0 Yes [id number] 100mg Take 1 [facility] 100 mg 5-19 tablet by ity of tablet 00:00: mouth in [place] 00 the Medical morning. Branch SERTraline 3-0 Yes [id number] 100mg Take 1 [facility] 100 mg 5-19 tablet by ity of tablet 00:00: mouth in [place] 00 the Medical morning. Branch SERTraline 2023-0 Yes [id number] 100mg Take 1 [facility] 100 mg 5-19 tablet by ity of tablet 00:00: mouth in [place] 00 the Medical morning. Branch SERTraline 3-0 2023- No [id number] 100mg Take 1 [facility] 100 mg 5-19 05-25 tablet by ity of tablet 00:00: 00:00 mouth in [place] 00 :00 the Medical morning. Branch SERTraline 2022-0 2022- No [id number] 100mg Take 1 [facility] 100 mg 5-19 05-25 tablet by ity of tablet 00:00: 00:00 mouth in [place] 00 :00 the Medical morning. Branch SERTraline 2022-0 2022- No [id number] 100mg Take 1 [facility] 100 mg 5-19 05-25 tablet by ity of tablet 00:00: 00:00 mouth in [place] 00 :00 the Medical morning. Branch SERTraline 2022-0 2022- No [id number] 100mg Take 1 [facility] 100 mg 5-19 05-25 tablet by ity of tablet 00:00: 00:00 mouth in [place] 00 :00 the Medical morning. Branch blood sugar Yes [id number] Check U nivers diagnostic 5-18 blood ity of strip 00:00: sugar 2 [place] 00 times a Medical day. Branch E11.9. Brand per insurance. Uses ACCU-CHEK machine Lancets Yes [id number] Check Unive rs Misc 5-18 blood ity of 00:00: sugar 2 [place] 00 times a Medical day. Branch E11.9. Brand per insurance. amiodarone Yes [id number] 200mg Take 1 [facility] 200 mg 5-18 tablet by ity of tablet 00:00: mouth in [place] 00 the Medical morning. Branch apixaban 5 Yes 5mg Take 1 Unive rs mg tablet 5-18 tablet by ity o f 00:00: mouth in [place] 00 the Medical morning Branch and 1 tablet in the evening. Indication s: ATRIAL FIBRILLATI ON atorvastati Yes [id number] 40mg Take 1 [facility] n 40 mg 5-18 tablet by ity of tablet 00:00: mouth at [place] 00 bedtime. Medical Branch lisinopriL Yes [id number] 2.5mg Take 1 [facility] 2.5 mg 5-18 tablet by ity of tablet 00:00: mouth in [place] 00 the Medical morning. Branch metoprolol 0 Yes [id number] 25mg Take 1 U nivers tartrate 25 5-18 tablet by ity of mg tablet 00:00: mouth in [facility] [place] 00 the Medical morning Branch and 1 tablet in the evening. blood sugar Yes [id number] Check U nivers diagnostic 5-18 blood ity of strip 00:00: sugar 2 [place] 00 times a Medical day. Branch E11.9. Brand per insurance. Uses ACCU-CHEK machine Lancets 2022-0 Yes [id number] Check Unive rs Misc 5-18 blood ity of 00:00: sugar 2 [place] 00 times a Medical day. Branch E11.9. Brand per insurance. amiodarone 2022-0 Yes [id number] 200mg Take 1 [facility] 200 mg 5-18 tablet by ity of tablet 00:00: mouth in [place] 00 the Medical morning. Branch apixaban 5 2022-0 Yes 5mg Take 1 Unive rs mg tablet 5-18 tablet by ity o f 00:00: mouth in [place] 00 the Medical morning Branch and 1 tablet in the evening. Indication s: ATRIAL FIBRILLATI ON atorvastati 0 Yes [id number] 40mg Take 1 [facility] n 40 mg 5-18 tablet by ity of tablet 00:00: mouth at [place] 00 bedtime. Medical Branch lisinopriL 0 Yes [id number] 2.5mg Take 1 [facility] 2.5 mg 5-18 tablet by ity of tablet 00:00: mouth in [place] 00 the Medical morning. Branch metoprolol 0 Yes [id number] 25mg Take 1 U nivers tartrate 25 5-18 tablet by ity of mg tablet 00:00: mouth in [facility] [place] 00 the Medical morning Branch and 1 tablet in the evening. blood sugar 2022-0 Yes [id number] Check U nivers diagnostic 5-18 blood ity of strip 00:00: sugar 2 [place] 00 times a Medical day. Branch E11.9. Brand per insurance. Uses ACCU-CHEK machine Lancets 2022-0 Yes [id number] Check Unive rs Misc 5-18 blood ity of 00:00: sugar 2 [place] 00 times a Medical day. Branch E11.9. Brand per insurance. amiodarone 2022-0 Yes [id number] 200mg Take 1 [facility] 200 mg 5-18 tablet by ity of tablet 00:00: mouth in [place] 00 the Medical morning. Branch apixaban 5 2022-0 Yes 5mg Take 1 Unive rs mg tablet 5-18 tablet by ity o f 00:00: mouth in [place] 00 the Medical morning Branch and 1 tablet in the evening. Indication s: ATRIAL FIBRILLATI ON atorvastati 2022-0 Yes [id number] 40mg Take 1 [facility] n 40 mg 5-18 tablet by ity of tablet 00:00: mouth at [place] 00 bedtime. Medical Branch lisinopriL 2022-0 Yes [id number] 2.5mg Take 1 [facility] 2.5 mg 5-18 tablet by ity of tablet 00:00: mouth in [place] 00 the Medical morning. Branch metoprolol 2022-0 Yes [id number] 25mg Take 1 U nivers tartrate 25 5-18 tablet by ity of mg tablet 00:00: mouth in [facility] [place] [facility] the Medical morning Branch and 1 tablet in the evening. blood sugar 2022-0 Yes [id number] Check U nivers diagnostic 5-18 blood ity of strip 00:00: sugar 2 [place] 00 times a Medical day. Branch E11.9. Brand per insurance. Uses ACCU-CHEK machine Lancets 2022-0 Yes [id number] Check Unive rs Misc 5-18 blood ity of 00:00: sugar 2 [place] 00 times a Medical day. Branch E11.9. Brand per insurance. amiodarone 2022-0 Yes [id number] 200mg Take 1 [facility] 200 mg 5-18 tablet by ity of tablet 00:00: mouth in [place] 00 the Medical morning. Branch apixaban 5 2022-0 Yes 5mg Take 1 Unive rs mg tablet 5-18 tablet by ity o f 00:00: mouth in [place] 00 the Medical morning Branch and 1 tablet in the evening. Indication s: ATRIAL FIBRILLATI ON atorvastati 2022-0 Yes [id number] 40mg Take 1 [facility] n 40 mg 5-18 tablet by ity of tablet 00:00: mouth at [place] 00 bedtime. Medical Branch lisinopriL 2022-0 Yes [id number] 2.5mg Take 1 [facility] 2.5 mg 5-18 tablet by ity of tablet 00:00: mouth in [place] 00 the Medical morning. Branch metoprolol 2022-0 Yes [id number] 25mg Take 1 U nivers tartrate 25 5-18 tablet by ity of mg tablet 00:00: mouth [place] 00 the Medical morning Branch and 1 tablet in the evening. blood sugar 2022-0 Yes [id number] Check U nivers diagnostic 5-18 blood ity of strip 00:00: sugar 2 [place] 00 times a Medical day. Branch E11.9. Brand per insurance. Uses ACCU-CHEK machine Lancets 2022-0 Yes [id number] Check Unive rs Misc 5-18 blood ity of 00:00: sugar 2 [place] 00 times a Medical day. Branch E11.9. Brand per insurance. amiodarone 2022-0 Yes [id number] 200mg Take 1 [facility] 200 mg 5-18 tablet by ity of tablet 00:00: mouth in [place] 00 the Medical morning. Branch apixaban 5 2022-0 Yes 5mg Take 1 Unive rs mg tablet 5-18 tablet by ity o f 00:00: mouth in [place] 00 the Medical morning Branch and 1 tablet in the evening. Indication s: ATRIAL FIBRILLATI ON atorvastati 0 Yes [id number] 40mg Take 1 [facility] n 40 mg 5-18 tablet by ity of tablet 00:00: mouth at [place] 00 bedtime. Medical Branch lisinopriL 0 Yes [id number] 2.5mg Take 1 [facility] 2.5 mg 5-18 tablet by ity of tablet 00:00: mouth in [place] 00 the Medical morning. Branch metoprolol 0 Yes [id number] 25mg Take 1 U nivers tartrate 25 5-18 tablet by ity of mg tablet 00:00: mouth in [facility] s 00 the Medical morning Branch and 1 tablet in the evening. blood sugar 2022-0 Yes [id number] Check U nivers diagnostic 5-18 blood ity of strip 00:00: sugar 2 [place] 00 times a Medical day. Branch E11.9. Brand per insurance. Uses ACCU-CHEK machine Lancets 2022-0 Yes [id number] Check Unive rs Misc 5-18 blood ity of 00:00: sugar 2 [place] 00 times a Medical day. Branch E11.9. Brand per insurance. amiodarone 2022-0 Yes [id number] 200mg Take 1 [facility] 200 mg 5-18 tablet by ity of tablet 00:00: mouth in [place] 00 the Medical morning. Branch apixaban 5 2022-0 Yes 5mg Take 1 Unive rs mg tablet 5-18 tablet by ity o f 00:00: mouth in [place] 00 the Medical morning Branch and 1 tablet in the evening. Indication s: ATRIAL FIBRILLATI ON atorvastati 2022-0 Yes [id number] 40mg Take 1 [facility] n 40 mg 5-18 tablet by ity of tablet 00:00: mouth at [place] 00 bedtime. Medical Branch lisinopriL 2022-0 Yes [id number] 2.5mg Take 1 [facility] 2.5 mg 5-18 tablet by ity of tablet 00:00: mouth in [place] 00 the Medical morning. Branch metoprolol 2022-0 Yes [id number] 25mg Take 1 U nivers tartrate 25 5-18 tablet by ity of mg tablet 00:00: [place] 00 the Medical morning Branch and 1 tablet in the evening. blood sugar 2022-0 Yes [id number] Check U nivers diagnostic 5-18 blood ity of strip 00:00: sugar 2 [place] 00 times a Medical day. Branch E11.9. Brand per insurance. Uses ACCU-CHEK machine Lancets 2022-0 Yes [id number] Check Unive rs Misc 5-18 blood ity of 00:00: sugar 2 [place] 00 times a Medical day. Branch E11.9. Brand per insurance. amiodarone 0 Yes [id number] 200mg Take 1 [facility] 200 mg 5-18 tablet by ity of tablet 00:00: mouth in [place] 00 the Medical morning. Branch apixaban 5 0 Yes 5mg Take 1 Unive rs mg tablet 5-18 tablet by ity o f 00:00: mouth in [place] 00 the Medical morning Branch and 1 tablet in the evening. Indication s: ATRIAL FIBRILLATI ON atorvastati 2022-0 Yes [id number] 40mg Take 1 [facility] n 40 mg 5-18 tablet by ity of tablet 00:00: mouth at [place] 00 bedtime. Medical Branch lisinopriL 2022-0 Yes [id number] 2.5mg Take 1 [facility] 2.5 mg 5-18 tablet by ity of tablet 00:00: mouth in [place] 00 the Medical morning. Branch metoprolol 2022-0 Yes [id number] 25mg Take 1 U nivers tartrate 25 5-18 tablet by ity of mg tablet 00:00: mouth in [facility] [place] [facility] the Medical morning Branch and 1 tablet in the evening. blood sugar 2022-0 Yes [id number] Check U nivers diagnostic 5-18 blood ity of strip 00:00: sugar 2 [place] 00 times a Medical day. Branch E11.9. Brand per insurance. Uses ACCU-CHEK machine Lancets 0 Yes [id number] Check Unive rs Misc 5-18 blood ity of 00:00: sugar 2 [place] 00 times a Medical day. Branch E11.9. Brand per insurance. amiodarone 2022-0 Yes [id number] 200mg Take 1 [facility] 200 mg 5-18 tablet by ity of tablet 00:00: mouth in [place] 00 the Medical morning. Branch apixaban 5 2022-0 Yes 5mg Take 1 Unive rs mg tablet 5-18 tablet by ity o f 00:00: mouth in [place] 00 the Medical morning Branch and 1 tablet in the evening. Indication s: ATRIAL FIBRILLATI ON atorvastati 2022-0 Yes [id number] 40mg Take 1 [facility] n 40 mg 5-18 tablet by ity of tablet 00:00: mouth at [place] [address] bedtime. Medical Branch lisinopriL Yes [id number] 2.5mg Take 1 [facility] 2.5 mg 5-18 tablet by ity of tablet 00:00: mouth in [place] 00 the Medical morning. Branch metoprolol Yes [id number] 25mg Take 1 U nivers tartrate 25 5-18 tablet by ity of mg tablet 00:00: mouth in [facility] [place] 00 the Medical morning Branch and 1 tablet in the evening. Lancets 0 Yes [id number] Check Unive rs Misc 5-18 blood ity of 00:00: sugar 2 [place] 00 times a Medical day. Branch E11.9. Brand per insurance. amiodarone 2022-0 Yes [id number] 200mg Take 1 [facility] 200 mg 5-18 tablet by ity of tablet 00:00: mouth in [place] 00 the Medical morning. Branch apixaban 5 2022-0 Yes 5mg Take 1 Unive rs mg tablet 5-18 tablet by ity o f 00:00: mouth in [place] 00 the Medical morning Branch and 1 tablet in the evening. Indication s: ATRIAL FIBRILLATI ON atorvastati 2022-0 Yes [id number] 40mg Take 1 [facility] n 40 mg 5-18 tablet by ity of tablet 00:00: mouth at [place] [address] bedtime. Medical Branch lisinopriL 2022-0 Yes [id number] 2.5mg Take 1 [facility] 2.5 mg 5-18 tablet by ity of tablet 00:00: mouth in [place] 00 the Medical morning. Branch metoprolol 2022-0 Yes [id number] 25mg Take 1 U nivers tartrate 25 5-18 tablet by ity of mg tablet 00:00: mouth [place] 00 the Medical morning Branch and 1 tablet in the evening. Lancets 2022-0 Yes [id number] Check Unive rs Misc 5-18 blood ity of 00:00: sugar 2 [place] 00 times a Medical day. Branch E11.9. Brand per insurance. amiodarone 2022-0 Yes [id number] 200mg Take 1 [facility] 200 mg 5-18 tablet by ity of tablet 00:00: mouth in [place] 00 the Medical morning. Branch apixaban 5 2022-0 Yes 5mg Take 1 Unive rs mg tablet 5-18 tablet by ity o f 00:00: mouth in [place] 00 the Medical morning Branch and 1 tablet in the evening. Indication s: ATRIAL FIBRILLATI ON atorvastati 0 Yes [id number] 40mg Take 1 [facility] n 40 mg 5-18 tablet by ity of tablet 00:00: mouth at [place] 00 bedtime. Medical Branch lisinopriL 2022-0 Yes [id number] 2.5mg Take 1 [facility] 2.5 mg 5-18 tablet by ity of tablet 00:00: mouth in [place] 00 the Medical morning. Branch metoprolol 2022-0 Yes [id number] 25mg Take 1 U nivers tartrate 25 5-18 tablet by ity of mg tablet 00:00: mouth in [facility] s 00 the Medical morning Branch and 1 tablet in the evening. blood sugar 2022-0 Yes [id number] Check U nivers diagnostic 5-18 blood ity of strip 00:00: sugar 2 [place] 00 times a Medical day. Branch E11.9. Brand per insurance. Uses ACCU-CHEK machine Lancets 2022-0 Yes [id number] Check Unive rs Misc 5-18 blood ity of 00:00: sugar 2 [place] 00 times a Medical day. Branch E11.9. Brand per insurance. amiodarone 2022-0 Yes [id number] 200mg Take 1 [facility] 200 mg 5-18 tablet by ity of tablet 00:00: mouth in [place] 00 the morning. Branch apixaban 5 Yes 5mg Take 1 Unive rs mg tablet 5-18 tablet by ity o f 00:00: mouth in [place] 00 the morning Branch and 1 tablet in the evening. Indication s: ATRIAL FIBRILLATI ON atorvastati Yes [id number] 40mg Take 1 [facility] n 40 mg 5-18 tablet by ity of tablet 00:00: mouth at [place] [address] bedtime. Medical Branch divalproex Yes [id number] 250mg Take 1 [facility] ER 250 mg 5-18 tablet by ity o f 24 hr 00:00: mouth [place] tablet 00 every 24 Medical (twenty-fo Branch ur) hours. gabapentin Yes [id number] 300mg Take 1 [facility] 300 mg 5-18 capsule by ity of capsule 00:00: mouth in [place] 00 the morning Branch and 1 capsule at noon and 1 capsule in the evening. lisinopriL Yes [id number] 2.5mg Take 1 [facility] 2.5 mg 5-18 tablet by ity of tablet 00:00: mouth in [place] the morning. Branch metoprolol Yes [id number] 25mg Take 1 U nivers tartrate 25 5-18 tablet by ity of mg tablet 00:00: mouth in [facility] [place] 00 the morning Branch and 1 tablet in the evening. blood sugar Yes [id number] Check U nivers diagnostic 5-18 blood ity of strip 00:00: sugar 2 [place] 00 times a Medical day. Branch E11.9. Brand per insurance. Uses ACCU-CHEK machine Lancets Yes [id number] Check Unive rs Misc 5-18 blood ity of 00:00: sugar 2 [place] 00 times a Medical day. Branch E11.9. Brand per insurance. amiodarone Yes [id number] 200mg Take 1 [facility] 200 mg 5-18 tablet by ity of tablet 00:00: mouth in [place] 00 the morning. Branch apixaban 5 Yes 5mg Take 1 Unive rs mg tablet 5-18 tablet by ity o f 00:00: mouth in [place] the morning Branch and 1 tablet in the evening. Indication s: ATRIAL FIBRILLATI ON atorvastati Yes [id number] 40mg Take 1 [facility] n 40 mg 5-18 tablet by ity of tablet 00:00: mouth at [place] 00 bedtime. Medical Branch divalproex Yes [id number] 250mg Take 1 [facility] ER 250 mg 5-18 tablet by ity o f 24 hr 00:00: mouth [place] tablet 00 every 24 Medical (twenty-fo Branch ur) hours. gabapentin Yes [id number] 300mg Take 1 [facility] 300 mg 5-18 capsule by ity of capsule 00:00: mouth in [place] 00 the morning Branch and 1 capsule at noon and 1 capsule in the evening. lisinopriL Yes [id number] 2.5mg Take 1 [facility] 2.5 mg 5-18 tablet by ity of tablet 00:00: mouth in [place] 00 the morning. Branch metoprolol Yes [id number] 25mg Take 1 U nivers tartrate 25 5-18 tablet by ity of mg tablet 00:00: mouth in [facility] [place] 00 the morning Branch and 1 tablet in the evening. blood sugar Yes [id number] Check U nivers diagnostic 5-18 blood ity of strip 00:00: sugar 2 [place] 00 times a Medical day. Branch E11.9. Brand per insurance. Uses ACCU-CHEK machine Lancets Yes [id number] Check Unive rs Misc 5-18 blood ity of 00:00: sugar 2 [place] 00 times a Medical day. Branch E11.9. Brand per insurance. amiodarone Yes [id number] 200mg Take 1 [facility] 200 mg 5-18 tablet by ity of tablet 00:00: mouth in [place] 00 the Medical morning. Branch apixaban 5 Yes 5mg Take 1 Unive rs mg tablet 5-18 tablet by ity o f 00:00: mouth in [place] 00 the morning Branch and 1 tablet in the evening. Indication s: ATRIAL FIBRILLATI ON atorvastati Yes [id number] 40mg Take 1 [facility] n 40 mg 5-18 tablet by ity of tablet 00:00: mouth at [place] 00 bedtime. Medical Branch divalproex Yes [id number] 250mg Take 1 [facility] ER 250 mg 5-18 tablet by ity o f 24 hr 00:00: mouth [place] tablet 00 every 24 Medical (- Branch ur) hours. gabapentin 2022-0 Yes [id number] 300mg Take 1 [facility] 300 mg 5-18 capsule by ity of capsule 00:00: mouth in [place] the morning Branch and 1 capsule at noon and 1 capsule in the evening. lisinopriL 2022-0 Yes [id number] 2.5mg Take 1 [facility] 2.5 mg 5-18 tablet by ity of tablet 00:00: mouth in [place] 00 the morning. Branch metoprolol 2022-0 Yes [id number] 25mg Take 1 U nivers tartrate 25 5-18 tablet by ity of mg tablet 00:00: mouth in [facility] [place] the morning Branch and 1 tablet in the evening. blood sugar 2022-0 Yes [id number] Check U nivers diagnostic 5-18 blood ity of strip 00:00: sugar 2 [place] times a Medical day. Branch E11.9. Brand per insurance. Uses ACCU-CHEK machine Lancets Yes [id number] Check Unive rs Misc 5-18 blood ity of 00:00: sugar 2 [place] times a Medical day. Branch E11.9. Brand per insurance. amiodarone 2022-0 Yes [id number] 200mg Take 1 [facility] 200 mg 5-18 tablet by ity of tablet 00:00: mouth in [place] the morning. Branch apixaban 5 2022-0 Yes 5mg Take 1 Unive rs mg tablet 5-18 tablet by ity o f 00:00: mouth in [place] the morning Branch and 1 tablet in the evening. Indication s: ATRIAL FIBRILLATI ON atorvastati 2022-0 Yes [id number] 40mg Take 1 [facility] n 40 mg 5-18 tablet by ity of tablet 00:00: mouth at [place] 00 bedtime. Medical Branch divalproex 2022-0 Yes [id number] 250mg Take 1 [facility] ER 250 mg 5-18 tablet by ity o f 24 hr 00:00: mouth [place] tablet 00 every 24 Medical (twenty-fo Branch ur) hours. gabapentin 2022-0 Yes [id number] 300mg Take 1 [facility] 300 mg 5-18 capsule by ity of capsule 00:00: mouth in [place] 00 the morning Branch and 1 capsule at noon and 1 capsule in the evening. lisinopriL 2022-0 Yes [id number] 2.5mg Take 1 [facility] 2.5 mg 5-18 tablet by ity of tablet 00:00: mouth in [place] the morning. Branch metoprolol 2022-0 Yes [id number] 25mg Take 1 U nivers tartrate 25 5-18 tablet by ity of mg tablet 00:00: mouth in [facility] [place] 00 the morning Branch and 1 tablet in the evening. blood sugar 2022-0 Yes [id number] Check U nivers diagnostic 5-18 blood ity of strip 00:00: sugar 2 [place] times a Medical day. Branch E11.9. Brand per insurance. Uses ACCU-CHEK machine Lancets 0 Yes [id number] Check Unive rs Misc 5-18 blood ity of 00:00: sugar 2 [place] times a Medical day. Branch E11.9. Brand per insurance. amiodarone 2022-0 Yes [id number] 200mg Take 1 [facility] 200 mg 5-18 tablet by ity of tablet 00:00: mouth in [place] the morning. Branch apixaban 5 0 Yes 5mg Take 1 Unive rs mg tablet 5-18 tablet by ity o f 00:00: mouth in [place] the Branch and 1 tablet in the evening. Indication s: ATRIAL FIBRILLATI ON atorvastati 2022-0 Yes [id number] 40mg Take 1 [facility] n 40 mg 5-18 tablet by ity of tablet 00:00: mouth at [place] [address] bedtime. Medical Branch divalproex 2022-0 Yes [id number] 250mg Take 1 [facility] ER 250 mg 5-18 tablet by ity o f 24 hr 00:00: mouth [place] tablet 00 every 24 Medical (twenty-fo Branch ur) hours. gabapentin 2022-0 Yes [id number] 300mg Take 1 [facility] 300 mg 5-18 capsule by ity of capsule 00:00: mouth in [place] the morning Branch and 1 capsule at noon and 1 capsule in the evening. lisinopriL 2022-0 Yes [id number] 2.5mg Take 1 [facility] 2.5 mg 5-18 tablet by ity of tablet 00:00: mouth in [place] 00 the morning. Branch metoprolol 2022-0 Yes [id number] 25mg Take 1 U nivers tartrate 25 5-18 tablet by ity of mg tablet 00:00: mouth in [facility] [place] [facility] 00 the Medical morning Branch and 1 tablet in the evening. blood sugar 2022-0 Yes [id number] Check U nivers diagnostic 5-18 blood ity of strip 00:00: sugar 2 [place] 00 times a Medical day. Branch E11.9. Brand per insurance. Uses ACCU-CHEK machine Lancets 2022-0 Yes [id number] Check Unive rs Misc 5-18 blood ity of 00:00: sugar 2 [place] 00 times a Medical day. Branch E11.9. Brand per insurance. amiodarone 2022-0 Yes [id number] 200mg Take 1 [facility] 200 mg 5-18 tablet by ity of tablet 00:00: mouth in [place] 00 the morning. Branch apixaban 5 0 Yes 5mg Take 1 Unive rs mg tablet 5-18 tablet by ity o f 00:00: mouth in [place] 00 the Medical morning Branch and 1 tablet in the evening. Indication s: ATRIAL FIBRILLATI ON atorvastati 0 Yes [id number] 40mg Take 1 [facility] n 40 mg 5-18 tablet by ity of tablet 00:00: mouth at [place] 00 bedtime. Medical Branch lisinopriL 0 Yes [id number] 2.5mg Take 1 [facility] 2.5 mg 5-18 tablet by ity of tablet 00:00: mouth in [place] 00 the Medical morning. Branch metoprolol 2022-0 Yes [id number] 25mg Take 1 U nivers tartrate 25 5-18 tablet by ity of mg tablet 00:00: mouth in [facility] s 00 the Medical morning Branch and 1 tablet in the evening. blood sugar 2022-0 Yes [id number] Check U nivers diagnostic 5-18 blood ity of strip 00:00: sugar 2 [place] 00 times a Medical day. Branch E11.9. Brand per insurance. Uses ACCU-CHEK machine Lancets 2022-0 Yes [id number] Check Unive rs Misc 5-18 blood ity of 00:00: sugar 2 [place] 00 times a Medical day. Branch E11.9. Brand per insurance. amiodarone 2022-0 Yes [id number] 200mg Take 1 [facility] 200 mg 5-18 tablet by ity of tablet 00:00: mouth in [place] 00 the Medical morning. Branch apixaban 5 2022-0 Yes 5mg Take 1 Unive rs mg tablet 5-18 tablet by ity o f 00:00: mouth in [place] 00 the Medical morning Branch and 1 tablet in the evening. Indication s: ATRIAL FIBRILLATI ON atorvastati 2022-0 Yes [id number] 40mg Take 1 Univers n 40 mg 5-18 tablet by ity of tablet 00:00: mouth at [place] 00 bedtime. Medical Branch lisinopriL 2022-0 Yes [id number] 2.5mg Take 1 Univers 2.5 mg 5-18 tablet by ity of tablet 00:00: mouth in [place] 00 the Medical morning. Branch metoprolol 0 Yes [id number] 25mg Take 1 U nivers tartrate 25 5-18 tablet by ity of mg tablet 00:00: mouth in [facility] [place] 00 the Medical morning Branch and 1 tablet in the evening. blood sugar 0 Yes [id number] Check U nivers diagnostic 5-18 blood ity of strip 00:00: sugar 2 [place] 00 times a Medical day. Branch E11.9. Brand per insurance. Uses ACCU-CHEK machine Lancets Yes [id number] Check Unive rs Misc 5-18 blood ity of 00:00: sugar 2 [place] 00 times a Medical day. Branch E11.9. Brand per insurance. amiodarone 0 Yes [id number] 200mg Take 1 [facility] 200 mg 5-18 tablet by ity of tablet 00:00: mouth in [place] 00 the Medical morning. Branch apixaban 5 2022-0 Yes 5mg Take 1 Unive rs mg tablet 5-18 tablet by ity o f 00:00: mouth in [place] 00 the Medical morning Branch and 1 tablet in the evening. Indication s: ATRIAL FIBRILLATI ON atorvastati 2022-0 Yes [id number] 40mg Take 1 Univers n 40 mg 5-18 tablet by ity of tablet 00:00: mouth at [place] [address] bedtime. Medical Branch lisinopriL 2022-0 Yes [id number] 2.5mg Take 1 Univers 2.5 mg 5-18 tablet by ity of tablet 00:00: mouth in [place] 00 the Medical morning. Branch metoprolol 2023-0 Yes [id number] 25mg Take 1 U nivers tartrate 25 5-18 tablet by ity of mg tablet 00:00: mouth in [facility] [place] [facility] the Medical morning Branch and 1 tablet in the evening. blood sugar 2022-0 Yes [id number] Check U nivers diagnostic 5-18 blood ity of strip 00:00: sugar 2 [place] 00 times a Medical day. Branch E11.9. Brand per insurance. Uses ACCU-CHEK machine Lancets 2022-0 Yes [id number] Check Unive rs Misc 5-18 blood ity of 00:00: sugar 2 [place] 00 times a Medical day. Branch E11.9. Brand per insurance. amiodarone 2022-0 Yes [id number] 200mg Take 1 [facility] 200 mg 5-18 tablet by ity of tablet 00:00: mouth in [place] 00 the Medical morning. Branch apixaban 5 0 Yes 5mg Take 1 Unive rs mg tablet 5-18 tablet by ity o f 00:00: mouth in [place] 00 the Medical morning Branch and 1 tablet in the evening. Indication s: ATRIAL FIBRILLATI ON atorvastati 0 Yes [id number] 40mg Take 1 Univers n 40 mg 5-18 tablet by ity of tablet 00:00: mouth at [place] 00 bedtime. Medical Branch lisinopriL 0 Yes [id number] 2.5mg Take 1 Univers 2.5 mg 5-18 tablet by ity of tablet 00:00: mouth in [place] 00 the Medical morning. Branch metoprolol 0 Yes [id number] 25mg Take 1 U nivers tartrate 25 5-18 tablet by ity of mg tablet 00:00: mouth in [facility] s 00 the Medical morning Branch and 1 tablet in the evening. blood sugar 2022-0 Yes [id number] Check U nivers diagnostic 5-18 blood ity of strip 00:00: sugar 2 [place] 00 times a Medical day. Branch E11.9. Brand per insurance. Uses ACCU-CHEK machine Lancets 2022-0 Yes [id number] Check Unive rs Misc 5-18 blood ity of 00:00: sugar 2 [place] 00 times a Medical day. Branch E11.9. Brand per insurance. amiodarone 2022-0 Yes [id number] 200mg Take 1 Univers 200 mg 5-18 tablet by ity of tablet 00:00: mouth in [place] 00 the Medical morning. Branch apixaban 5 2022-0 Yes 5mg Take 1 Unive rs mg tablet 5-18 tablet by ity o f 00:00: mouth in [place] the morning Branch and 1 tablet in the evening. Indication s: ATRIAL FIBRILLATI ON atorvastati 2022-0 Yes [id number] 40mg Take 1 Univers n 40 mg 5-18 tablet by ity of tablet 00:00: mouth at [place] [address] bedtime. Medical Branch lisinopriL 2022-0 Yes [id number] 2.5mg Take 1 Univers 2.5 mg 5-18 tablet by ity of tablet 00:00: mouth in [place] 00 the morning. Branch metoprolol 0 Yes [id number] 25mg Take 1 U nivers tartrate 25 5-18 tablet by ity of mg tablet 00:00: mouth in [facility] [place] 00 the morning Branch and 1 tablet in the evening. blood sugar 0 Yes [id number] Check U nivers diagnostic 5-18 blood ity of strip 00:00: sugar 2 [place] 00 times a Medical day. Branch E11.9. Brand per insurance. Uses ACCU-CHEK machine Lancets Yes [id number] Check Unive rs Misc 5-18 blood ity of 00:00: sugar 2 [place] 00 times a Medical day. Branch E11.9. Brand per insurance. amiodarone 0 Yes [id number] 200mg Take 1 Univers 200 mg 5-18 tablet by ity of tablet 00:00: mouth in [place] the Medical morning. Branch apixaban 5 2022-0 Yes 5mg Take 1 Unive rs mg tablet 5-18 tablet by ity o f 00:00: mouth in [place] the morning Branch and 1 tablet in the evening. Indication s: ATRIAL FIBRILLATI ON atorvastati 2022-0 Yes [id number] 40mg Take 1 Univers n 40 mg 5-18 tablet by ity of tablet 00:00: mouth at [place] [address] bedtime. Medical Branch lisinopriL 2022-0 Yes [id number] 2.5mg Take 1 Univers 2.5 mg 5-18 tablet by ity of tablet 00:00: mouth in [place] 00 the Medical morning. Branch metoprolol 2022-0 Yes [id number] 25mg Take 1 U nivers tartrate 25 5-18 tablet by ity of mg tablet 00:00: mouth in [facility] s 00 the Medical morning Branch and 1 tablet in the evening. blood sugar 0 Yes [id number] Check U nivers diagnostic 5-18 blood ity of strip 00:00: sugar 2 [place] 00 times a Medical day. Branch E11.9. Brand per insurance. Uses ACCU-CHEK machine Lancets 0 Yes [id number] Check Unive rs Misc 5-18 blood ity of 00:00: sugar 2 [place] 00 times a Medical day. Branch E11.9. Brand per insurance. amiodarone Yes [id number] 200mg Take 1 Univers 200 mg 5-18 tablet by ity of tablet 00:00: mouth in [place] 00 the Medical morning. Branch apixaban 5 0 Yes 5mg Take 1 Unive rs mg tablet 5-18 tablet by ity o f 00:00: mouth in [place] 00 the Medical morning Branch and 1 tablet in the evening. Indication s: ATRIAL FIBRILLATI ON atorvastati Yes [id number] 40mg Take 1 Univers n 40 mg 5-18 tablet by ity of tablet 00:00: mouth at [place] [address] bedtime. Medical Branch lisinopriL 0 Yes [id number] 2.5mg Take 1 Univers 2.5 mg 5-18 tablet by ity of tablet 00:00: mouth in [place] 00 the Medical morning. Branch metoprolol 0 Yes [id number] 25mg Take 1 U nivers tartrate 25 5-18 tablet by ity of mg tablet 00:00: mouth in [facility] s 00 the Medical morning Branch and 1 tablet in the evening. blood sugar 2023- No [id number] Check Univers diagnostic 5-18 06-07 blood ity of strip 00:00: 00:00 sugar 2 [place] 00 :00 times a Medical day. Branch E11.9. Brand per insurance. Uses ACCU-CHEK machine divalproex 2022-0 2022- No [id number] 250mg Take 1 Univers ER 250 mg 5-18 05-25 tablet by ity of 24 hr 00:00: 00:00 mouth [place] tablet 00 :00 every 24 Medical (twenty-fo Branch ur) hours. gabapentin 2022- No [id number] 300mg Take 1 Univers 300 mg 5-18 05-25 capsule by ity of capsule 00:00: 00:00 mouth in [place] 00 :00 the [facility] morning Branch and 1 capsule at noon and 1 capsule in the evening. divalproex 2022- No [id number] 250mg Take 1 Univers ER 250 mg 5-18 05-25 tablet by ity of 24 hr 00:00: 00:00 mouth [place] tablet 00 :00 every 24 Medical ([facility] ur) hours. gabapentin 2022- No [id number] 300mg Take 1 Univers 300 mg 5-18 05-25 capsule by ity of capsule 00:00: 00:00 mouth in [place] 00 :00 the [facility] Branch and 1 capsule at noon and 1 capsule in the evening. divalproex 2022- No [id number] 250mg Take 1 Univers ER 250 mg 5-18 05-25 tablet by ity of 24 hr 00:00: 00:00 mouth [place] tablet 00 :00 every 24 Medical ([facility] ur) hours. gabapentin 2022- No [id number] 300mg Take 1 Univers 300 mg 5-18 05-25 capsule by ity of capsule 00:00: 00:00 mouth in [place] 00 :00 the [facility] Branch and 1 capsule at noon and 1 capsule in the evening. divalproex 2022- No [id number] 250mg Take 1 Univers ER 250 mg 5-18 05-25 tablet by ity of 24 hr 00:00: 00:00 mouth [place] tablet 00 :00 every 24 Medical ([facility] ur) hours. gabapentin 2022- No [id number] 300mg Take 1 Univers 300 mg 5-18 05-25 capsule by ity of capsule 00:00: 00:00 mouth in [place] 00 :00 the [facility] Branch and 1 capsule at noon and 1 capsule in the evening. calcium 2022-2022- Yes 500mg 500 mg, Unive rs carbonate 08-14 Oral, ity of (OSCAL-500) 08:30: 20:29 ONCE, 1 [place] tablet 500 00 :00 dose, On Medic al mg Wed Branch 08/14/22 at 0330, GELA levETIRAcet 2022-0 2022- No 1000mg 1,000 mg, Univers am (KEPPRA) 08-14 IV ity of in NACL 07:15: 07:42 Piggyback, [place] as (ISO-OS) 00 :00 ONCE, 1 Medical 1,000 dose, On Branch mg/100 mL Fri RTU 08/14/22 at 0215, Administer over 15 Minutes, 100 mL NaCl 0.9% 2022-0 2022- No 500mL at 999 Univ ers (NS) bolus 08-14 mL/hr, 500 it y of infusion 05:30: 07:00 mL, IV [place] 500 mL 00 :00 Infusion, Medical ONCE, 1 Branch dose, On Fri08/14/22 at 0030, STAT divalproex 2023-0 Yes [id number] 250mg Take 1 Univers ER 250 mg 4-26 tablet by ity o f 24 hr 00:00: mouth [place] tablet 00 every 24 Medical (twenty-fo Branch ur) hours. divalproex 2023-0 Yes [id number] 250mg Take 1 Univers ER 250 mg 4-26 tablet by ity o f 24 hr 00:00: mouth [place] tablet 00 every 24 Medical (twenty-fo Branch ur) hours. divalproex 2023-0 Yes [id number] 250mg Take 1 Univers ER 250 mg 4-26 tablet by ity o f 24 hr 00:00: mouth [place] tablet 00 every 24 Medical (twenty-fo Branch ur) hours. divalproex 2023-0 Yes [id number] 250mg Take 1 Univers ER 250 mg 4-26 tablet by ity o f 24 hr 00:00: mouth [place] tablet 00 every 24 Medical (twenty-fo Branch ur) hours. divalproex 2023-0 Yes [id number] 250mg Take 1 Univers ER 250 mg 4-26 tablet by ity o f 24 hr 00:00: mouth [place] tablet 00 every 24 Medical (twenty-fo Branch ur) hours. divalproex 2023-0 Yes [id number] 250mg Take 1 Univers ER 250 mg 4-26 tablet by ity o f 24 hr 00:00: mouth [place] tablet 00 every 24 Medical (twenty-fo Branch ur) hours. divalproex 2023-0 Yes [id number] 250mg Take 1 Univers ER 250 mg 4-26 tablet by ity o f 24 hr 00:00: mouth [place] tablet 00 every 24 Medical (twenty-fo Branch ur) hours. divalproex 2023-0 Yes [id number] 250mg Take 1 Univers ER 250 mg 4-26 tablet by ity o f 24 hr 00:00: mouth [place] tablet 00 every 24 Medical (twenty-fo Branch ur) hours. divalproex 2023-0 Yes [id number] 250mg Take 1 Univers ER 250 mg 4-26 tablet by ity o f 24 hr 00:00: mouth [place] tablet 00 every 24 Medical (twenty-fo Branch ur) hours. divalproex 2023-0 Yes [id number] 250mg Take 1 Univers ER 250 mg 4-26 tablet by ity o f 24 hr 00:00: mouth [place] tablet 00 every 24 Medical (twenty-fo Branch ur) hours. divalproex 2023-0 Yes [id number] 250mg Take 1 Univers ER 250 mg 4-26 tablet by ity o f 24 hr 00:00: mouth [place] tablet 00 every 24 Medical (twenty-fo Branch ur) hours. divalproex 2023-0 Yes [id number] 250mg Take 1 Univers ER 250 mg 4-26 tablet by ity o f 24 hr 00:00: mouth [place] tablet 00 every 24 Medical (twenty-fo Branch ur) hours. divalproex 3-0 2023- No [id number] 250mg Take 1 Univers ER 250 mg 4-26 05-18 tablet by ity of 24 hr 00:00: 00:00 mouth [place] tablet 00 :00 every 24 Medical (twenty-fo Branch ur) hours. lancing Yes 1{each} Take 1 Unive rs device/lanc 4-17 Each in ity o ets 14:20: the [place] (ACCU-CHEK 29 morning Medica l SOFT DEV and 1 Each Branc h LANCETS at noon MISC) and 1 Each in the evening. lancing 0 Yes 1{each} Take 1 Unive rs device/lanc 4-17 Each in ity o ets 14:20: the [place] (ACCU-CHEK 29 morning Medica l SOFT DEV and 1 Each Branc h LANCETS at noon MISC) and 1 Each in the evening. lancing 2023-0 Yes 1{each} Take 1 Unive rs device/lanc 4-17 Each in [facility] ets 14:20: the [place] (ACCU-CHEK 29 morning Medica l SOFT DEV and 1 Each Branc h LANCETS at noon MISC) and 1 Each in the evening. lancing Yes 1{each} Take 1 Unive rs device/lanc 4-17 Each in [facility] ets 14:20: the [place] (ACCU-CHEK 29 morning Medica l SOFT DEV and 1 Each Branc h LANCETS at noon MISC) and 1 Each in the evening. lancing Yes 1{each} Take 1 Unive rs device/lanc 4-17 Each in [facility] ets 14:20: the [place] (ACCU-CHEK 29 morning Medica l SOFT DEV and 1 Each Branc h LANCETS at noon MISC) and 1 Each in the evening. lancing Yes 1{each} Take 1 Unive rs device/lanc 4-17 Each in [facility] ets 14:20: the [place] (ACCU-CHEK 29 morning Medica l SOFT DEV and 1 Each Branc h LANCETS at noon MISC) and 1 Each in the evening. lancing Yes 1{each} Take 1 Unive rs device/lanc 4-17 Each in [facility] ets 14:20: the [place] (ACCU-CHEK 29 morning Medica l SOFT DEV and 1 Each Branc h LANCETS at noon MISC) and 1 Each in the evening. lancing Yes 1{each} Take 1 Unive rs device/lanc 4-17 Each in [facility] ets 14:20: the [place] (ACCU-CHEK 29 morning Medica l SOFT DEV and 1 Each Branc h LANCETS at noon MISC) and 1 Each in the evening. lancing Yes 1{each} Take 1 Unive rs device/lanc 4-17 Each in [facility] ets 14:20: the [place] (ACCU-CHEK 29 morning Medica l SOFT DEV and 1 Each Branc h LANCETS at noon MISC) and 1 Each in the evening. lancing Yes 1{each} Take 1 [facility] 4-[facility]: the [place] (ACCU-CHEK 29 morning Medica l SOFT DEV and 1 Each Branc h LANCETS at noon MISC) and 1 Each in the evening. lancing Yes 1{each} Take 1 Unive rs device/lanc 4-17 [facility] 14:20: the [place] (ACCU-CHEK 29 morning Medica l SOFT DEV and 1 Each Branc h LANCETS at noon MISC) and 1 Each in the evening. lancing Yes 1{each} Take 1 Unive rs device/lanc 4-17 [facility] 14:20: the [place] (ACCU-CHEK 29 morning Medica l SOFT DEV and 1 Each Branc h LANCETS at noon MISC) and 1 Each in the evening. lancing Yes 1{each} Take 1 Unive rs device/lanc 4-17 Each in [facility] ets 14:20: the [place] (ACCU-CHEK 29 morning Medica l SOFT DEV and 1 Each Branc h LANCETS at noon MISC) and 1 Each in the evening. lancing Yes 1{each} Take 1 Unive rs device/lanc 4-17 Each in [facility] ets 14:20: the [place] (ACCU-CHEK 29 morning Medica l SOFT DEV and 1 Each Branc h LANCETS at noon MISC) and 1 Each in the evening. lancing Yes 1{each} Take 1 Unive rs device/lanc 4-17 Each in [facility] ets 14:20: the [place] (ACCU-CHEK 29 morning Medica l SOFT DEV and 1 Each Branc h LANCETS at noon MISC) and 1 Each in the evening. lancing Yes 1{each} Take 1 Unive rs device/lanc 4-17 [facility] 14:20: the [place] (ACCU-CHEK 29 morning Medica l SOFT DEV and 1 Each Branc h LANCETS at noon MISC) and 1 Each in the evening. lancing Yes 1{each} Take 1 Unive rs device/lanc 4-17 [facility] 14:20: the [place] (ACCU-CHEK 29 morning Medica l SOFT DEV and 1 Each Branc h LANCETS at noon MISC) and 1 Each in the evening. lancing Yes 1{each} Take 1 Unive rs device/lanc 4-17 [facility] 14:20: the [place] (ACCU-CHEK 29 morning Medica l SOFT DEV and 1 Each Branc h LANCETS at noon MISC) and 1 Each in the evening. lancing Yes 1{each} Take 1 Unive rs device/lanc 4-17 [facility] 14:20: the [place] (ACCU-CHEK 29 morning Medica l SOFT DEV and 1 Each Branc h LANCETS at noon MISC) and 1 Each in the evening. lancing Yes 1{each} Take 1 Unive rs device/lanc 4-17 Each in [facility] ets 14:20: the [place] (ACCU-CHEK 29 morning Medica l SOFT DEV and 1 Each Branc h LANCETS at noon MISC) and 1 Each in the evening. lancing Yes 1{each} Take 1 Unive rs device/lanc 4-17 [facility] 14:20: the [place] (ACCU-CHEK 29 morning Medica l SOFT DEV and 1 Each Branc h LANCETS at noon MISC) and 1 Each in the evening. lancing Yes 1{each} Take 1 Unive rs device/lanc 4-17 Each in [facility] ets 14:20: the [place] (ACCU-CHEK 29 morning Medica l SOFT DEV and 1 Each Branc h LANCETS at noon MISC) and 1 Each in the evening. lancing Yes 1{each} Take 1 Unive rs device/lanc 4-17 [facility] 14:20: the [place] (ACCU-CHEK 29 morning Medica l SOFT DEV and 1 Each Branc h LANCETS at noon MISC) and 1 Each in the evening. lisinopriL 2022- No 2.5mg Take 1 Uni vers 2.5 mg 4-17 04-17 tablet by ity of tablet 14:01: 00:00 mouth in [place] 18 :00 the Medical morning. Branch gabapentin 2023-0 2023- No 300mg Take 1 Uni vers 300 mg 4-17 04-17 capsule by ity of capsule 14:: 00:00 mouth in [place] 18 :00 the Medical morning. Branch atorvastati 3-0 3- No 40mg Take 1 Uni vers n 40 mg 4-17 04-17 tablet by ity of tablet 14:01: 00:00 mouth at [place] 18 :00 bedtime. Medical Branch apixaban 5 2022-0 2023- No 5mg Take 1 Univ ers mg tablet 4-17 04-17 tablet by ity of 14:01: 00:00 mouth [place] 18 :00 every 12 Medical (twelve) Branch hours. metoprolol 3-0 3- No 25mg Take 1 Univ ers tartrate 25 4-17 04-17 tablet by it y of mg tablet 14:01: 00:00 mouth in [facility] [place] [facility] as 18 :00 the Medical morning Branch [...] ity of tablet 14:01: 00:00 mouth at [place] 18 :00 bedtime. Medical Branch apixaban 5 2022-0 3- No 5mg Take 1 Univ ers mg tablet 4-17 04-17 tablet by ity of 14:01: 00:00 mouth [place] 18 :00 every 12 Medical (twelve) Branch hours. metoprolol 2023-0 2023- No 25mg Take 1 Univ ers tartrate 25 4-17 04-17 tablet by it y of mg tablet 14:01: 00:00 mouth in [facility] [place] [facility] as 18 :00 the Medical morning Branch and 1 tablet in the evening. lisinopriL 3-0 2023- No 2.5mg Take 1 Uni vers 2.5 mg 4-17 04-17 tablet by ity of tablet 14:01: 00:00 mouth in [place] 18 :00 the Medical morning. Branch gabapentin 2022- No 300mg Take 1 Uni vers 300 mg 4-17 -17 capsule by ity of capsule 14:01: 00:00 mouth in [place] 18 :00 the Medical morning. Branch atorvastati 2022- No 40mg Take 1 Uni vers n 40 mg 4-17 04-17 tablet by ity of tablet 14:01: 00:00 mouth at [place] 18 :00 bedtime. Medical Branch apixaban 5 2022- No 5mg Take 1 Univ ers mg tablet 4-17 04-17 tablet by ity of 14:01: 00:00 mouth [place] 18 :00 every 12 Medical (twelve) Branch hours. metoprolol 2022- No 25mg Take 1 Univ ers tartrate 25 4-17 04-17 tablet by it y of mg tablet 14:01: 00:00 mouth in [facility] [place] [facility] as 18 :00 the Medical morning Branch and 1 tablet in the evening. SERTraline 2022- No 25mg Take 1 Univ ers 25 mg 4-17 04-17 tablet by ity of tablet 14:01: 00:00 mouth in [place] 12 :00 the Medical morning. Branch SERTraline 2022- No 25mg Take 1 Univ ers 25 mg 4-17 04-17 tablet by ity of tablet 14:01: 00:00 mouth in [place] 12 :00 the Medical morning. Branch SERTraline 2022- No 25mg Take 1 Univ ers 25 mg 4-17 04-17 tablet by ity of tablet 14:01: 00:00 mouth in [place] 12 :00 the Medical morning. Branch Miscellaneo [...] BKA Suhas as 61 Medical Branch Miscellaneo 2023-0 Yes Bilateral U nivers us Medical 4-17 [...] N 22 Unsure of Medi dilshad PEN NH) what kind Branch of humulin insulin he takes insulin NPH 2023-0 Yes inject Univ ers human 4-17 under the ity of isophane 13:33: skin. Abdi (HUMULIN N 22 Unsure of Medi dilshad PEN NH) what kind Branch of humulin insulin he takes insulin NPH 2023-0 Yes inject Univ ers human 4-17 under the ity of isophane 13:33: skin. Abdi (HUMULIN N 22 Unsure of Medi dilshad PEN NH) what kind Branch of humulin insulin he takes insulin NPH 3-0 Yes inject Univ ers human 4-17 under the ity of isophane 13:33: skin. Abdi (HUMULIN N 22 Unsure of Medi dilshad PEN NH) what kind Branch of humulin insulin he takes insulin NPH 3-0 Yes inject Univ ers human 4-17 under the ity of isophane 13:33: skin. Abdi (HUMULIN N 22 Unsure of Medi dilshad PEN NH) what kind Branch of humulin insulin he takes SEMGLEE,INS 2023-0 Yes inject Univ ers ULIN 4-17 under the ity of GLARGINE-YF 13:33: skin. As AURELIO [place] 22 directed Medical Branch insulin NPH 3-0 Yes inject Univ ers human 4-17 under the ity of isophane 13:33: skin. Abdi (HUMULIN N 22 Unsure of Medi dilshad PEN NH) what kind Branch of humulin insulin he takes SEMGLEE,INS 2023-0 Yes inject Univ ers ULIN 4-17 under the ity of GLARGINE-YF 13:33: skin. As AURELIO [place] 22 directed Medical Branch insulin NPH 2023-0 Yes inject Univ ers human 4-17 under the ity of isophane 13:33: skin. Abdi (HUMULIN N 22 Unsure of Medi dilshad PEN NH) what kind Branch of humulin insulin he takes SEMGLEE,INS 2023-0 Yes inject Univ ers ULIN 4-17 under the ity of GLARGINE-YF 13:33: skin. [place] 22 directed Medical Branch insulin NPH 2023-0 Yes inject Univ ers human 4-17 under the ity of isophane 13:33: skin. Abdi (HUMULIN N 22 Unsure of Medi dilshad PEN NH) what kind Branch of humulin insulin he takes SEMGLEE,INS 3-0 Yes inject Univ ers ULIN 4-17 under the ity of GLARGINE-YF 13:33: skin. As AURELIO [place] 22 directed Medical Branch insulin NPH 2022-0 Yes inject Univ ers human 4-17 under the ity of isophane 13:33: skin. Abdi (HUMULIN N 22 Unsure of Medi dilshad PEN NH) what kind Branch of humulin insulin he takes SEMGLEE,INS 3-0 Yes inject Univ ers ULIN 4-17 under the ity of GLARGINE-YF 13:33: skin. As AURELIO [place] 22 directed Medical Branch insulin NPH 2022-0 Yes inject Univ ers human 4-17 under the ity of isophane 13:33: skin. Abdi (HUMULIN N 22 Unsure of [facility] dilshad PEN NH) what kind Branch of humulin insulin he takes SEMGLEE,INS 3-0 Yes inject Univ ers ULIN 4-17 under the ity of GLARGINE-YF 13:33: skin. As AURELIO [place] 22 directed Medical Branch insulin NPH 2022-0 Yes inject Univ ers human 4-17 under the ity of isophane 13:33: skin. Abdi (HUMULIN N 22 Unsure of [facility] dilshad PEN NH) what kind Branch of humulin insulin he takes SEMGLEE,INS 2023-0 Yes inject Univ ers ULIN 4-17 under the ity of GLARGINE-YF 13:33: skin. As AURELIO [place] 22 directed Medical Branch insulin NPH 2022-0 Yes inject Univ ers human 4-17 under the ity of isophane 13:33: skin. Abdi (HUMULIN N 22 Unsure of Medi dilshad PEN NH) what kind Branch of humulin insulin he takes SEMGLEE,INS 2023-0 Yes inject Univ ers ULIN 4-17 under the ity of GLARGINE-YF 13:33: skin. As AURELIO [place] 22 directed Medical Branch insulin NPH 2022-0 Yes inject Univ ers human 4-17 under the ity of isophane 13:33: skin. Abdi (HUMULIN N 22 Unsure of Medi dilshad PEN NH) what kind Branch of humulin insulin he takes SEMGLEE,INS 2023-0 Yes inject Univ ers ULIN 4-17 under the ity of GLARGINE-YF 13:33: skin. As AURELIO [place] 22 directed Medical Branch insulin NPH 2022-0 Yes inject Univ ers human 4-17 under the ity of isophane 13:33: skin. Abdi (HUMULIN N 22 Unsure of Medi dilshad PEN NH) what kind Branch of humulin insulin he takes SEMGLEE,INS 2023-0 Yes inject Univ ers ULIN 4-17 under the ity of GLARGINE-YF 13:33: skin. As AURELIO [place] 22 directed Medical Branch insulin NPH 2022-0 Yes inject Univ ers human 4-17 under the ity of isophane 13:33: skin. Abdi (HUMULIN N 22 Unsure of Medi dilshad PEN NH) what kind Branch of humulin insulin he takes SEMGLEE,INS 2023-0 Yes inject Univ ers ULIN 4-17 under the ity of GLARGINE-YF 13:33: skin. As AURELIO [place] 22 directed Medical Branch insulin NPH 2022-0 Yes inject Univ ers human 4-17 under the ity of isophane 13:33: skin. Abdi (HUMULIN N 22 Unsure of Medi dilshad PEN NH) what kind Branch of humulin insulin he takes SEMGLEE,INS 2023-0 Yes inject Univ ers ULIN 4-17 under the ity of GLARGINE-YF 13:33: skin. As AURELIO [place] 22 directed Medical Branch insulin NPH 2022-0 Yes inject Univ ers human 4-17 under the ity of isophane 13:33: skin. Abdi (HUMULIN N 22 Unsure of Medi dilshad PEN NH) what kind Branch of humulin insulin he takes SEMGLEE,INS 2023-0 Yes inject Univ ers ULIN 4-17 under the ity of GLARGINE-YF 13:33: skin. As AURELIO Quintanilla 22 directed Medical Branch insulin NPH 3-0 Yes inject Univ ers human 4-17 under the ity of isophane 13:33: skin. Abdi (HUMULIN N 22 Unsure of [facility] dilshad [facility]) what kind Branch of humulin insulin he takes SEMGLEE,INS 2023-0 Yes inject Univ ers ULIN 4-17 under the ity of GLARGINE-YF 13:33: skin. As AURELIO Quintanilla 22 directed Medical Branch insulin NPH 2022-0 Yes inject Univ ers human 4-17 under the ity of isophane 13:33: skin. Abdi (HUMULIN N 22 Unsure of [facility] dilshad [facility]) what kind Branch of humulin insulin he takes SEMGLEE,INS 2023-0 Yes inject Univ ers ULIN 4-17 under the ity of GLARGINE-YF 13:33: skin. As AURELIO Quintanilla 22 directed Medical Branch insulin NPH 2022-0 Yes inject Univ ers human 4-17 under the ity of isophane 13:33: skin. Abdi (HUMULIN N 22 Unsure of [facility] dilshad [facility]) what kind Branch of humulin insulin he takes SEMGLEE,INS 2023-0 Yes inject Univ ers ULIN 4-17 under the ity of GLARGINE-YF 13:33: skin. As AURELIO Quintanilla 22 directed Medical Branch insulin NPH 2022-0 Yes inject Univ ers human 4-17 under the ity of isophane 13:33: skin. Abdi (HUMULIN N 22 Unsure of [facility]) what kind Branch of humulin insulin he takes SEMGLEE,INS 2023-0 Yes inject Univ ers ULIN 4-17 under the ity of GLARGINE-YF 13:33: skin. As AURELIO Quintanilla 22 directed Medical Branch insulin NPH 3-0 Yes inject [facility] ers human 4-17 under the ity of isophane 13:33: skin. Abdi (HUMULIN N 22 Unsure of [facility] dilshad [facility]) what kind Branch of humulin insulin he takes SEMGLEE,INS 2023-0 Yes inject [facility] ers ULIN 4-17 under the ity of GLARGINE-YF 13:33: skin. As AURELIO Quintanilla 22 directed Medical Branch insulin NPH 2023-0 Yes inject Univ ers human 4-17 under the ity of isophane 13:33: skin. Abdi (HUMULIN N 22 Unsure of [facility] dilshad [facility]) what kind Branch of humulin insulin he takes SEMGLEE,INS 2023-0 Yes inject [facility] ers ULIN 4-17 under the ity of GLARGINE-YF 13:33: skin. As AURELIO Quintanilla 22 directed Medical Branch insulin NPH 2022-0 Yes inject [facility] ers human 4-17 under the ity of isophane 13:33: skin. Abdi (HUMULIN N 22 Unsure of [facility]i [facility]shad [facility]) what kind Branch of humulin insulin he takes SEMGLEE,INS 2023-0 Yes inject [facility] ers ULIN 4-17 under the ity of GLARGINE-YF 13:33: skin. As AURELIO Quintanilla 22 directed Medical Branch insulin NPH 2022-0 Yes inject [facility] ers human 4-17 under the ity of isophane 13:33: skin. Abdi (HUMULIN N 22 Unsure of [facility]i dilshad [facility]) what kind Branch of humulin insulin he takes SEMGLEE,INS 2023-0 Yes inject Univ ers ULIN 4-17 under the ity of GLARGINE-YF 13:33: skin. As AURELIO Quintanilla 22 directed Medical Branch insulin NPH 2022-0 Yes inject [facility] ers human 4-17 under the ity of isophane 13:33: skin. Abdi (HUMULIN N 22 Unsure of [facility]i [facility]shad [facility]) what kind Branch of humulin insulin he takes SEMGLEE,INS 2023-0 Yes inject Univ ers ULIN 4-17 under the ity of GLARGINE-YF 13:33: skin. As AURELIO Quintanilla 22 directed Medical Branch insulin NPH 2022-0 Yes inject [facility] ers human 4-17 under the ity of isophane 13:33: skin. Abdi (HUMULIN N 22 Unsure of [facility]i dilshad [facility]) what kind Branch of humulin insulin he takes SEMGLEE,INS 2023-0 Yes inject [facility] ers ULIN 4-17 under the ity of GLARGINE-YF 13:33: skin. As AURELIO Quintanilla 22 directed Medical Branch insulin NPH 3-0 Yes inject [facility] ers human 4-17 under the ity of isophane 13:33: skin. Abdi (HUMULIN N 22 Unsure of Medi dilshad [facility]) what kind Branch of humulin insulin he takes SEMGLEE,INS 2023-0 Yes inject [facility] ers ULIN 4-17 under the ity of GLARGINE-YF 13:33: skin. As AURELIO Quintanilla 22 directed Medical Branch insulin NPH 2022-0 Yes inject [facility] ers human 4-17 under the ity of isophane 13:33: skin. Abdi (HUMULIN N 22 Unsure of Medi dilshad [facility]) what kind Branch of humulin insulin he takes SEMGLEE,INS 3-0 Yes inject [facility] ers ULIN 4-17 under the ity of GLARGINE-YF 13:33: skin. As AURELIO Quintanilla 22 directed Medical Branch insulin NPH 2022-0 Yes inject [facility] ers human 4-17 under the ity of isophane 13:33: skin. Abdi (HUMULIN N 22 Unsure of Medi dilshad [facility]) what kind Branch of humulin insulin he takes SEMGLEE,INS 3-0 Yes inject Univ ers ULIN 4-17 under the ity of GLARGINE-YF 13:33: skin. As Rolando [place] 22 directed Medical Branch insulin NPH 2022-0 Yes inject Univ ers human 4-17 under the ity of isophane 13:33: skin. Abdi (HUMULIN N 22 Unsure of Medi dilshad [facility]) what kind Branch of humulin insulin he takes SEMGLEE,INS 3-0 Yes inject [facility] ers ULIN 4-17 under the ity of GLARGINE-YF 13:33: skin. As AURELIO Quintanilla 22 directed Medical Branch insulin NPH 2022-0 Yes inject [facility] ers human 4-17 under the ity of isophane 13:33: skin. Abdi (HUMULIN N 22 Unsure of Medi dilshad [facility]) what kind Branch of humulin insulin he takes insulin NPH 3-0 Yes inject Univ ers human 4-17 under the ity of isophane 13:33: skin. Abdi (HUMULIN N 22 Unsure of Medi dilshad [facility]) what kind Branch of humulin insulin he takes insulin NPH 3-0 Yes inject Univ ers human 4-17 under the ity of isophane 13:33: skin. Abdi (HUMULIN N 22 Unsure of Medi dilshad [facility]) what kind Branch of humulin insulin he takes insulin NPH 3-0 Yes inject Univ ers human 4-17 under the ity of isophane 13:33: skin. [place] (HUMULIN N 22 Unsure of [facility]i [facility]ad [facility] [place]) what kind Branch of humulin insulin he takes insulin NPH 3-0 Yes inject Univ ers human 4-17 under the ity of isophane 13:33: skin. [place] (HUMULIN N 22 Unsure of [facility]i dilshad [facility]) what kind Branch of humulin insulin he takes insulin NPH 3-0 Yes inject Univ ers human 4-17 under the ity of isophane 13:33: skin. [place] (HUMULIN N 22 Unsure of Medi dis[facility] [place]) what kind Branch of humulin insulin he takes insulin NPH 3-0 Yes inject Univ ers human 4-17 under the ity of isophane 13:33: skin. [place] (HUMULIN N 22 Unsure of Medi dilshad [facility]) what kind Branch of humulin insulin he takes insulin NPH 3-0 Yes inject [facility] ers human 4-17 under the ity of isophane 13:33: skin. [place] (HUMULIN N 22 Unsure of Medi dilshad [facility]) what kind Branch of humulin insulin he takes cephALEXin 2023-0 Yes 500mg Take 1 Univ ers 500 mg 4-17 capsule by ity of capsule 13:23: mouth 4 [place] [address] (four) Medical times Branch daily. cephALEXin 2023-0 Yes 500mg Take 1 Univ ers 500 mg 4-17 capsule by ity of capsule 13:23: mouth 4 [place] 56 (four) Medical times Branch daily. cephALEXin 2023-0 Yes 500mg Take 1 Univ ers 500 mg 4-17 capsule by ity of capsule 13:23: mouth 4 [place] [address] (four) Medical times Branch daily. cephALEXin 2023-0 Yes 500mg Take 1 Univ ers 500 mg 4-17 capsule by ity of capsule 13:23: mouth 4 [place] 56 (four) Medical times Branch daily. cephALEXin 2023-0 Yes 500mg Take 1 Univ ers 500 mg 4-17 capsule by ity of capsule 13:23: mouth 4 [place] 56 (four) Medical times Branch daily. cephALEXin 2023-0 Yes 500mg Take 1 Univ ers 500 mg 4-17 capsule by ity of capsule 13:23: mouth 4 [place] 56 (four) Medical times Branch daily. cephALEXin 2023-0 Yes 500mg Take 1 Univ ers 500 mg 4-17 capsule by ity of capsule 13:23: mouth 4 [place] [address] (four) Medical times Branch daily. cephALEXin 2023-0 Yes 500mg Take 1 Univ ers 500 mg 4-17 capsule by ity of capsule 13:23: mouth 4 [place] [address] (four) Medical times Branch daily. cephALEXin 2023-0 Yes 500mg Take 1 Univ ers 500 mg 4-17 capsule by ity of capsule 13:23: mouth 4 [place] 56 (four) Medical times Branch daily. cephALEXin 2023-0 Yes 500mg Take 1 Univ ers 500 mg 4-17 capsule by ity of capsule 13:23: mouth 4 [place] [address] (four) Medical times Branch daily. cephALEXin 2023-0 Yes 500mg Take 1 Univ ers 500 mg 4-17 capsule by ity of capsule 13:23: mouth 4 [place] [address] (four) Medical times Branch daily. cephALEXin 2023-0 Yes 500mg Take 1 Univ ers 500 mg 4-17 capsule by ity of capsule 13:23: mouth 4 [place] [address] (four) Medical times Branch daily. cephALEXin 2023-0 Yes 500mg Take 1 Univ ers 500 mg 4-17 capsule by ity of capsule 13:23: mouth 4 [place] [address] (four) Medical times Branch daily. cephALEXin 2023-0 Yes 500mg Take 1 Univ ers 500 mg 4-17 capsule by ity of capsule 13:23: mouth 4 [place] [address] (four) Medical times Branch daily. cephALEXin 2023-0 Yes 500mg Take 1 Univ ers 500 mg 4-17 capsule by ity of capsule 13:23: mouth 4 [place] [address] (four) Medical times Branch daily. cephALEXin 2023-0 Yes 500mg Take 1 Univ ers 500 mg 4-17 capsule by ity of capsule 13:23: mouth 4 [place] [address] (four) Medical times Branch daily. cephALEXin 2023-0 Yes 500mg Take 1 Univ ers 500 mg 4-17 capsule by ity of capsule 13:23: mouth 4 [place] [address] (four) Medical times Branch daily. cephALEXin 2023-0 Yes 500mg Take 1 Univ ers 500 mg 4-17 capsule by ity of capsule 13:23: mouth 4 [place] 56 (four) Medical times Branch daily. cephALEXin 2023-0 Yes 500mg Take 1 Univ ers 500 mg 4-17 capsule by ity of capsule 13:23: mouth 4 [place] [address] (four) Medical times Branch daily. cephALEXin 2023-0 Yes 500mg Take 1 Univ ers 500 mg 4-17 capsule by ity of capsule 13:23: mouth 4 [place] [address] (four) Medical times Branch daily. cephALEXin 2023-0 Yes 500mg Take 1 Univ ers 500 mg 4-17 capsule by ity of capsule 13:23: mouth 4 [place] 56 (four) Medical times Branch daily. cephALEXin 2023-0 Yes 500mg Take 1 Univ ers 500 mg 4-17 capsule by ity of capsule 13:23: mouth 4 [place] 56 (four) Medical times Branch daily. cephALEXin 2023-0 Yes 500mg Take 1 Univ ers 500 mg 4-17 capsule by ity of capsule 13:23: mouth 4 [place] 56 (four) Medical times Branch daily. gabapentin 2022-0 Yes [id number] 300mg Take 1 Univers 300 mg 4-17 capsule by ity of capsule 00:00: mouth in [place] [address] the Medical morning Branch and 1 capsule at noon and 1 capsule in the evening. amiodarone 0 Yes [id number] 200mg Take 1 Univers 200 mg 4-17 tablet by ity of tablet 00:00: mouth in [place] [address] the Medical morning. Branch apixaban 5 2022-0 Yes 5mg Take 1 Unive rs mg tablet 4-17 tablet by ity o f 00:00: mouth in [place] [address] the Medical morning Branch and 1 tablet in the evening. Indication s: ATRIAL FIBRILLATI ON atorvastati 2022-0 Yes [id number] 40mg Take 1 Univers n 40 mg 4-17 tablet by ity of tablet 00:00: mouth at [place] [address] bedtime. Medical Branch SERTraline 2022-0 Yes [id number] 100mg Take 1 Univers 100 mg 4-17 tablet by ity of tablet 00:00: mouth in [place] [address] the Medical morning. Branch lisinopriL 2022-0 Yes [id number] 2.5mg Take 1 Univers 2.5 mg 4-17 tablet by ity of tablet 00:00: mouth in [place] [address] the Medical morning. Branch metoprolol 2022-0 Yes [id number] 25mg Take 1 U nivers tartrate 25 4-17 tablet by ity of mg tablet 00:00: mouth in [facility] 00 the Medical morning Branch and 1 tablet in the evening. blood sugar 2022-0 Yes [id number] Check U nivers diagnostic 4-17 blood ity of strip 00:00: sugar 2 [place] 00 times a Medical day. Branch E11.9. Brand per insurance. Uses ACCU-CHEK machine Lancets Yes [id number] Check Unive rs Misc 4-17 blood ity of 00:00: sugar 2 [place] 00 times a Medical day. Branch E11.9. Brand per insurance. gabapentin Yes [id number] 300mg Take 1 Univers 300 mg 4-17 capsule by ity of capsule 00:00: mouth in [place] 00 the morning Branch and 1 capsule at noon and 1 capsule in the evening. amiodarone Yes [id number] 200mg Take 1 Univers 200 mg 4-17 tablet by ity of tablet 00:00: mouth in [place] 00 the morning. Branch apixaban 5 Yes 5mg Take 1 Unive rs mg tablet 4-17 tablet by ity o f 00:00: mouth in [place] the morning Branch and 1 tablet in the evening. Indication s: ATRIAL FIBRILLATI ON atorvastati Yes [id number] 40mg Take 1 Univers n 40 mg 4-17 tablet by ity of tablet 00:00: mouth at [place] 00 bedtime. Medical Branch SERTraline Yes [id number] 100mg Take 1 Univers 100 mg 4-17 tablet by ity of tablet 00:00: mouth in [place] 00 the morning. Branch lisinopriL Yes [id number] 2.5mg Take 1 Univers 2.5 mg 4-17 tablet by ity of tablet 00:00: mouth in [place] 00 the morning. Branch metoprolol Yes [id number] 25mg Take 1 U nivers tartrate 25 4-17 tablet by ity of mg tablet 00:00: mouth in [facility] 00 the morning Branch and 1 tablet in the evening. blood sugar Yes [id number] Check U nivers diagnostic 4-17 blood ity of strip 00:00: sugar 2 [place] 00 times a Medical day. Branch E11.9. Brand per insurance. Uses ACCU-CHEK machine Lancets Yes [id number] Check Unive rs Misc 4-17 blood ity of 00:00: sugar 2 [place] 00 times a Medical day. Branch E11.9. Brand per insurance. gabapentin Yes [id number] 300mg Take 1 Univers 300 mg 4-17 capsule by ity of capsule 00:00: mouth in [place] 00 the Medical morning Branch and 1 capsule at noon and 1 capsule in the evening. amiodarone 0 Yes [id number] 200mg Take 1 Univers 200 mg 4-17 tablet by ity of tablet 00:00: mouth in [place] the morning. Branch apixaban 5 0 Yes 5mg Take 1 Unive rs mg tablet 4-17 tablet by ity o f 00:00: mouth in [place] 00 the morning Branch and 1 tablet in the evening. Indication s: ATRIAL FIBRILLATI ON atorvastati Yes [id number] 40mg Take 1 Univers n 40 mg 4-17 tablet by ity of tablet 00:00: mouth at [place] [address] bedtime. Medical Branch SERTraline Yes [id number] 100mg Take 1 Univers 100 mg 4-17 tablet by ity of tablet 00:00: mouth in [place] the morning. Branch lisinopriL Yes [id number] 2.5mg Take 1 Univers 2.5 mg 4-17 tablet by ity of tablet 00:00: mouth in [place] [address] the morning. Branch metoprolol Yes [id number] 25mg Take 1 U nivers tartrate 25 4-17 tablet by ity of mg tablet 00:00: mouth in [facility] 00 the morning Branch and 1 tablet in the evening. blood sugar 0 Yes [id number] Check U nivers diagnostic 4-17 blood ity of strip 00:00: sugar 2 [place] 00 times a Medical day. Branch E11.9. Brand per insurance. Uses ACCU-CHEK machine Lancets Yes [id number] Check Unive rs Misc 4-17 blood ity of 00:00: sugar 2 [place] 00 times a Medical day. Branch E11.9. Brand per insurance. gabapentin Yes [id number] 300mg Take 1 Univers 300 mg 4-17 capsule by ity of capsule 00:00: mouth in [place] 00 the Medical morning Branch and 1 capsule at noon and 1 capsule in the evening. amiodarone Yes [id number] 200mg Take 1 Univers 200 mg 4-17 tablet by ity of tablet 00:00: mouth in [place] the morning. Branch apixaban 5 Yes 5mg Take 1 Unive rs mg tablet 4-17 tablet by ity o f 00:00: mouth in [place] the morning Branch and 1 tablet in the evening. Indication s: ATRIAL FIBRILLATI ON atorvastati Yes [id number] 40mg Take 1 Univers n 40 mg 4-17 tablet by ity of tablet 00:00: mouth at [place] [address] bedtime. Medical Branch SERTraline Yes [id number] 100mg Take 1 Univers 100 mg 4-17 tablet by ity of tablet 00:00: mouth in [place] 00 the morning. Branch lisinopriL Yes [id number] 2.5mg Take 1 Univers 2.5 mg 4-17 tablet by ity of tablet 00:00: mouth in [place] 00 the morning. Branch metoprolol Yes [id number] 25mg Take 1 U nivers tartrate 25 4-17 tablet by ity of mg tablet 00:00: mouth in [facility] the morning Branch and 1 tablet in the evening. blood sugar Yes [id number] Check U nivers diagnostic 4-17 blood ity of strip 00:00: sugar 2 [place] 00 times a Medical day. Branch E11.9. Brand per insurance. Uses ACCU-CHEK machine Lancets Yes [id number] Check Unive rs Misc 4-17 blood ity of 00:00: sugar 2 [place] 00 times a Medical day. Branch E11.9. Brand per insurance. gabapentin Yes [id number] 300mg Take 1 Univers 300 mg 4-17 capsule by ity of capsule 00:00: mouth in [place] the morning Branch and 1 capsule at noon and 1 capsule in the evening. amiodarone Yes [id number] 200mg Take 1 Univers 200 mg 4-17 tablet by ity of tablet 00:00: mouth in [place] 00 the morning. Branch apixaban 5 Yes 5mg Take 1 Unive rs mg tablet 4-17 tablet by ity o f 00:00: mouth in [place] the morning Branch and 1 tablet in the evening. Indication s: ATRIAL FIBRILLATI ON atorvastati Yes [id number] 40mg Take 1 Univers n 40 mg 4-17 tablet by ity of tablet 00:00: mouth at [place] [address] bedtime. Medical Branch SERTraline Yes [id number] 100mg Take 1 Univers 100 mg 4-17 tablet by ity of tablet 00:00: mouth in [place] the morning. Branch lisinopriL Yes [id number] 2.5mg Take 1 Univers 2.5 mg 4-17 tablet by ity of tablet 00:00: mouth in [place] the morning. Branch metoprolol Yes [id number] 25mg Take 1 U nivers tartrate 25 4-17 tablet by ity of mg tablet 00:00: mouth in [facility] the morning Branch and 1 tablet in the evening. blood sugar Yes [id number] Check U nivers diagnostic 4-17 blood ity of strip 00:00: sugar 2 [place] 00 times a Medical day. Branch E11.9. Brand per insurance. Uses ACCU-CHEK machine Lancets Yes [id number] Check Unive rs Misc 4-17 blood ity of 00:00: sugar 2 [place] times a Medical day. Branch E11.9. Brand per insurance. gabapentin Yes [id number] 300mg Take 1 Univers 300 mg 4-17 capsule by ity of capsule 00:00: mouth in [place] the morning Branch and 1 capsule at noon and 1 capsule in the evening. amiodarone Yes [id number] 200mg Take 1 Univers 200 mg 4-17 tablet by ity of tablet 00:00: mouth in [place] the morning. Branch apixaban 5 Yes 5mg Take 1 Unive rs mg tablet 4-17 tablet by ity o f 00:00: mouth in [place] the morning Branch and 1 tablet in the evening. Indication s: ATRIAL FIBRILLATI ON atorvastati Yes [id number] 40mg Take 1 Univers n 40 mg 4-17 tablet by ity of tablet 00:00: mouth at [place] [address] bedtime. Medical Branch SERTraline Yes [id number] 100mg Take 1 Univers 100 mg 4-17 tablet by ity of tablet 00:00: mouth in [place] 00 the morning. Branch lisinopriL Yes [id number] 2.5mg Take 1 Univers 2.5 mg 4-17 tablet by ity of tablet 00:00: mouth in [place] 00 the morning. Branch metoprolol Yes [id number] 25mg Take 1 U nivers tartrate 25 4-17 tablet by ity of mg tablet 00:00: mouth in [facility] 00 the morning Branch and 1 tablet in the evening. blood sugar 0 Yes [id number] Check U nivers diagnostic 4-17 blood ity of strip 00:00: sugar 2 [place] times a Medical day. Branch E11.9. Brand per insurance. Uses ACCU-CHEK machine Lancets Yes [id number] Check Unive rs Misc 4-17 blood ity of 00:00: sugar 2 [place] times a Medical day. Branch E11.9. Brand per insurance. gabapentin Yes [id number] 300mg Take 1 Univers 300 mg 4-17 capsule by ity of capsule 00:00: mouth in [place] 00 the morning Branch and 1 capsule at noon and 1 capsule in the evening. amiodarone Yes [id number] 200mg Take 1 Univers 200 mg 4-17 tablet by ity of tablet 00:00: mouth in [place] 00 the morning. Branch apixaban 5 Yes 5mg Take 1 Unive rs mg tablet 4-17 tablet by ity o f 00:00: mouth in [place] 00 the morning Branch and 1 tablet in the evening. Indication s: ATRIAL FIBRILLATI ON atorvastati 0 Yes [id number] 40mg Take 1 Univers n 40 mg 4-17 tablet by ity of tablet 00:00: mouth at [place] [address] bedtime. Medical Branch SERTraline Yes [id number] 100mg Take 1 [facility] 100 mg 4-17 tablet by ity of tablet 00:00: mouth in [place] 00 the morning. Branch lisinopriL 0 Yes [id number] 2.5mg Take 1 Univers 2.5 mg 4-17 tablet by ity of tablet 00:00: mouth in [place] 00 the morning. Branch metoprolol 2022-0 Yes [id number] 25mg Take 1 U nivers tartrate 25 4-17 tablet by ity of mg tablet 00:00: mouth in [facility] s the Medical morning Branch and 1 tablet in the evening. blood sugar Yes [id number] Check U nivers diagnostic 4-17 blood ity of strip 00:00: sugar 2 [place] 00 times a Medical day. Branch E11.9. Brand per insurance. Uses ACCU-CHEK machine Lancets 0 Yes [id number] Check Unive rs Misc 4-17 blood ity of 00:00: sugar 2 [place] times a Medical day. Branch E11.9. Brand per insurance. gabapentin 0 Yes [id number] 300mg Take 1 Univers 300 mg 4-17 capsule by ity of capsule 00:00: mouth in [place] the morning Branch and 1 capsule at noon and 1 capsule in the evening. amiodarone Yes [id number] 200mg Take 1 [facility] 200 mg 4-17 tablet by ity of tablet 00:00: mouth in [place] the morning. Branch apixaban 5 0 Yes 5mg Take 1 Unive rs mg tablet 4-17 tablet by ity o f 00:00: mouth in [place] the morning Branch and 1 tablet in the evening. Indication s: ATRIAL FIBRILLATI ON atorvastati Yes [id number] 40mg Take 1 Univers n 40 mg 4-17 tablet by ity of tablet 00:00: mouth at [place] [address] bedtime. Medical Branch SERTraline Yes [id number] 100mg Take 1 [facility] 100 mg 4-17 tablet by ity of tablet 00:00: mouth in [place] the morning. Branch lisinopriL Yes [id number] 2.5mg Take 1 Univers 2.5 mg 4-17 tablet by ity of tablet 00:00: mouth in [place] 00 the Medical morning. Branch metoprolol Yes [id number] 25mg Take 1 U nivers tartrate 25 4-17 tablet by ity of mg tablet 00:00: mouth in [facility] the morning Branch and 1 tablet in the evening. blood sugar 2022-0 Yes [id number] Check U nivers diagnostic 4-17 blood ity of strip 00:00: sugar 2 [place] 00 times a Medical day. Branch E11.9. Brand per insurance. Uses ACCU-CHEK machine Lancets Yes [id number] Check Unive rs Misc 4-17 blood ity of 00:00: sugar 2 [place] 00 times a Medical day. Branch E11.9. Brand per insurance. gabapentin Yes [id number] 300mg Take 1 [facility] 300 mg 4-17 capsule by ity of capsule 00:00: mouth in [place] 00 the Medical morning Branch and 1 capsule at noon and 1 capsule in the evening. amiodarone Yes [id number] 200mg Take 1 [facility] 200 mg 4-17 tablet by ity of tablet 00:00: mouth in [place] 00 the morning. Branch apixaban 5 0 Yes 5mg Take 1 Unive rs mg tablet 4-17 tablet by ity o f 00:00: mouth in [place] 00 the morning Branch and 1 tablet in the evening. Indication s: ATRIAL FIBRILLATI ON atorvastati Yes [id number] 40mg Take 1 Univers n 40 mg 4-17 tablet by ity of tablet 00:00: mouth at [place] [address] bedtime. Medical Branch SERTraline Yes [id number] 100mg Take 1 [facility] 100 mg 4-17 tablet by ity of tablet 00:00: mouth in [place] the morning. Branch lisinopriL Yes [id number] 2.5mg Take 1 Univers 2.5 mg 4-17 tablet by ity of tablet 00:00: mouth in [place] the morning. Branch metoprolol Yes [id number] 25mg Take 1 U nivers tartrate 25 4-17 tablet by ity of mg tablet 00:00: mouth in [facility] 00 the morning Branch and 1 tablet in the evening. blood sugar Yes [id number] Check U nivers diagnostic 4-17 blood ity of strip 00:00: sugar 2 [place] 00 times a Medical day. Branch E11.9. Brand per insurance. Uses ACCU-CHEK machine Lancets Yes [id number] Check Unive rs Misc 4-17 blood ity of 00:00: sugar 2 [place] 00 times a Medical day. Branch E11.9. Brand per insurance. gabapentin Yes [id number] 300mg Take 1 [facility] 300 mg 4-17 capsule by ity of capsule 00:00: mouth in [place] 00 the Medical morning Branch and 1 capsule at noon and 1 capsule in the evening. amiodarone Yes [id number] 200mg Take 1 [facility] 200 mg 4-17 tablet by ity of tablet 00:00: mouth in [place] 00 the morning. Branch apixaban 5 0 Yes 5mg Take 1 Unive rs mg tablet 4-17 tablet by ity o f 00:00: mouth in [place] the morning Branch and 1 tablet in the evening. Indication s: ATRIAL FIBRILLATI ON atorvastati Yes [id number] 40mg Take 1 Univers n 40 mg 4-17 tablet by ity of tablet 00:00: mouth at [place] [address] bedtime. Medical Branch SERTraline Yes [id number] 100mg Take 1 [facility] 100 mg 4-17 tablet by ity of tablet 00:00: mouth in [place] 00 the morning. Branch lisinopriL Yes [id number] 2.5mg Take 1 Univers 2.5 mg 4-17 tablet by ity of tablet 00:00: mouth in [place] the morning. Branch metoprolol Yes [id number] 25mg Take 1 U nivers tartrate 25 4-17 tablet by ity of mg tablet 00:00: mouth in [facility] the morning Branch and 1 tablet in the evening. blood sugar Yes [id number] Check U nivers diagnostic 4-17 blood ity of strip 00:00: sugar 2 [place] 00 times a Medical day. Branch E11.9. Brand per insurance. Uses ACCU-CHEK machine Lancets Yes [id number] Check Unive rs Misc 4-17 blood ity of 00:00: sugar 2 [place] 00 times a Medical day. Branch E11.9. Brand per insurance. gabapentin Yes [id number] 300mg Take 1 [facility] 300 mg 4-17 capsule by ity of capsule 00:00: mouth in [place] 00 the morning Branch and 1 capsule at noon and 1 capsule in the evening. amiodarone Yes [id number] 200mg Take 1 [facility] 200 mg 4-17 tablet by ity of tablet 00:00: mouth in [place] 00 the morning. Branch apixaban 5 0 Yes 5mg Take 1 Unive rs mg tablet 4-17 tablet by ity o f 00:00: mouth in [place] 00 the Medical morning Branch and 1 tablet in the evening. Indication s: ATRIAL FIBRILLATI ON atorvastati Yes [id number] 40mg Take 1 [facility] n 40 mg 4-17 tablet by ity of tablet 00:00: mouth at [place] 00 bedtime. Medical Branch SERTraline Yes [id number] 100mg Take 1 [facility] 100 mg 4-17 tablet by ity of tablet 00:00: mouth in [place] 00 the morning. Branch lisinopriL Yes [id number] 2.5mg Take 1 [facility] 2.5 mg 4-17 tablet by ity of tablet 00:00: mouth in [place] 00 the morning. Branch metoprolol Yes [id number] 25mg Take 1 U nivers tartrate 25 4-17 tablet by ity of mg tablet 00:00: mouth in [facility] [place] 00 the morning Branch and 1 tablet in the evening. blood sugar Yes [id number] Check U nivers diagnostic 4-17 blood ity of strip 00:00: sugar 2 [place] 00 times a Medical day. Branch E11.9. Brand per insurance. Uses ACCU-CHEK machine Lancets Yes [id number] Check Unive rs Misc 4-17 blood ity of 00:00: sugar 2 [place] 00 times a Medical day. Branch E11.9. Brand per insurance. gabapentin Yes [id number] 300mg Take 1 [facility] 300 mg 4-17 capsule by ity of capsule 00:00: mouth in [place] 00 the morning Branch and 1 capsule at noon and 1 capsule in the evening. amiodarone Yes [id number] 200mg Take 1 [facility] 200 mg 4-17 tablet by ity of tablet 00:00: mouth in [place] 00 the morning. Branch apixaban 5 0 Yes 5mg Take 1 Unive rs mg tablet 4-17 tablet by ity o f 00:00: mouth in [place] 00 the morning Branch and 1 tablet in the evening. Indication s: ATRIAL FIBRILLATI ON atorvastati Yes [id number] 40mg Take 1 [facility] n 40 mg 4-17 tablet by ity of tablet 00:00: mouth at [place] 00 bedtime. Medical Branch SERTraline Yes [id number] 100mg Take 1 [facility] 100 mg 4-17 tablet by ity of tablet 00:00: mouth in [place] the morning. Branch lisinopriL 0 Yes [id number] 2.5mg Take 1 [facility] 2.5 mg 4-17 tablet by ity of tablet 00:00: mouth in [place] the morning. Branch metoprolol Yes [id number] 25mg Take 1 U nivers tartrate 25 4-17 tablet by ity of mg tablet 00:00: mouth in [facility] [place] the morning Branch and 1 tablet in the evening. blood sugar Yes [id number] Check U nivers diagnostic 4-17 blood ity of strip 00:00: sugar 2 [place] times a Medical day. Branch E11.9. Brand per insurance. Uses ACCU-CHEK machine Lancets Yes [id number] Check Unive rs Misc 4-17 blood ity of 00:00: sugar 2 [place] times a Medical day. Branch E11.9. Brand per insurance. gabapentin Yes [id number] 300mg Take 1 [facility] 300 mg 4-17 capsule by ity of capsule 00:00: mouth in [place] the morning Branch and 1 capsule at noon and 1 capsule in the evening. amiodarone Yes [id number] 200mg Take 1 [facility] 200 mg 4-17 tablet by ity of tablet 00:00: mouth in [place] the morning. Branch apixaban 5 0 Yes 5mg Take 1 Unive rs mg tablet 4-17 tablet by ity o f 00:00: mouth in [place] the morning Branch and 1 tablet in the evening. Indication s: ATRIAL FIBRILLATI ON atorvastati Yes [id number] 40mg Take 1 [facility] n 40 mg 4-17 tablet by ity of tablet 00:00: mouth at [place] [address] bedtime. Medical Branch SERTraline Yes [id number] 100mg Take 1 [facility] 100 mg 4-17 tablet by ity of tablet 00:00: mouth in [place] the morning. Branch lisinopriL Yes [id number] 2.5mg Take 1 [facility] 2.5 mg 4-17 tablet by ity of tablet 00:00: mouth in [place] the morning. Branch metoprolol 0 Yes [id number] 25mg Take 1 U nivers tartrate 25 4-17 tablet by ity of mg tablet 00:00: mouth in [facility] [place] the morning Branch and 1 tablet in the evening. blood sugar 2022-0 Yes [id number] Check U nivers diagnostic 4-17 blood ity of strip 00:00: sugar 2 [place] times a Medical day. Branch E11.9. Brand per insurance. Uses ACCU-CHEK machine Lancets 0 Yes [id number] Check Unive rs Misc 4-17 blood ity of 00:00: sugar 2 [place] times a Medical day. Branch E11.9. Brand per insurance. gabapentin 0 Yes [id number] 300mg Take 1 [facility] 300 mg 4-17 capsule by ity of capsule 00:00: mouth in [place] the morning Branch and 1 capsule at noon and 1 capsule in the evening. amiodarone 0 Yes [id number] 200mg Take 1 [facility] 200 mg 4-17 tablet by ity of tablet 00:00: mouth in [place] the morning. Branch apixaban 5 0 Yes 5mg Take 1 Unive rs mg tablet 4-17 tablet by ity o f 00:00: mouth in [place] the morning Branch and 1 tablet in the evening. Indication s: ATRIAL FIBRILLATI ON atorvastati 2022-0 Yes [id number] 40mg Take 1 [facility] n 40 mg 4-17 tablet by ity of tablet 00:00: mouth at [place] [address] bedtime. Medical Branch SERTraline 2022-0 Yes [id number] 100mg Take 1 [facility] 100 mg 4-17 tablet by ity of tablet 00:00: mouth in [place] the morning. Branch lisinopriL 2022-0 Yes [id number] 2.5mg Take 1 [facility] 2.5 mg 4-17 tablet by ity of tablet 00:00: mouth in [place] the morning. Branch metoprolol 2022-0 Yes [id number] 25mg Take 1 U nivers tartrate 25 4-17 tablet by ity of mg tablet 00:00: mouth in [facility] [place] the morning Branch and 1 tablet in the evening. blood sugar 2022-0 Yes [id number] Check U nivers diagnostic 4-17 blood ity of strip 00:00: sugar 2 [place] 00 times a Medical day. Branch E11.9. Brand per insurance. Uses ACCU-CHEK machine Lancets Yes [id number] Check Unive rs Misc 4-17 blood ity of 00:00: sugar 2 [place] 00 times a Medical day. Branch E11.9. Brand per insurance. gabapentin Yes [id number] 300mg Take 1 [facility] 300 mg 4-17 capsule by ity of capsule 00:00: mouth in [place] 00 the morning Branch and 1 capsule at noon and 1 capsule in the evening. amiodarone Yes [id number] 200mg Take 1 [facility] 200 mg 4-17 tablet by ity of tablet 00:00: mouth in [place] 00 the morning. Branch apixaban 5 Yes 5mg Take 1 Unive rs mg tablet 4-17 tablet by ity o f 00:00: mouth in [place] the morning Branch and 1 tablet in the evening. Indication s: ATRIAL FIBRILLATI ON atorvastati Yes [id number] 40mg Take 1 [facility] n 40 mg 4-17 tablet by ity of tablet 00:00: mouth at [place] [address] bedtime. Medical Branch SERTraline Yes [id number] 100mg Take 1 [facility] 100 mg 4-17 tablet by ity of tablet 00:00: mouth in [place] the morning. Branch lisinopriL Yes [id number] 2.5mg Take 1 [facility] 2.5 mg 4-17 tablet by ity of tablet 00:00: mouth in [place] 00 the morning. Branch metoprolol Yes [id number] 25mg Take 1 U nivers tartrate 25 4-17 tablet by ity of mg tablet 00:00: mouth in [facility] [place] 00 the morning Branch and 1 tablet in the evening. blood sugar Yes [id number] Check U nivers diagnostic 4-17 blood ity of strip 00:00: sugar 2 [place] 00 times a Medical day. Branch E11.9. Brand per insurance. Uses ACCU-CHEK machine Lancets 0 Yes [id number] Check Unive rs Misc 4-17 blood ity of 00:00: sugar 2 [place] 00 times a Medical day. Branch E11.9. Brand per insurance. gabapentin Yes [id number] 300mg Take 1 [facility] 300 mg 4-17 capsule by ity of capsule 00:00: mouth in [place] 00 the morning Branch and 1 capsule at noon and 1 capsule in the evening. amiodarone 0 Yes [id number] 200mg Take 1 [facility] 200 mg 4-17 tablet by ity of tablet 00:00: mouth in [place] 00 the morning. Branch apixaban 5 0 Yes 5mg Take 1 Unive rs mg tablet 4-17 tablet by ity o f 00:00: mouth in [place] 00 the morning Branch and 1 tablet in the evening. Indication s: ATRIAL FIBRILLATI ON atorvastati Yes [id number] 40mg Take 1 [facility] n 40 mg 4-17 tablet by ity of tablet 00:00: mouth at [place] [address] bedtime. Medical Branch SERTraline Yes [id number] 100mg Take 1 [facility] 100 mg 4-17 tablet by ity of tablet 00:00: mouth in [place] the morning. Branch lisinopriL Yes [id number] 2.5mg Take 1 [facility] 2.5 mg 4-17 tablet by ity of tablet 00:00: mouth in [place] [address] the morning. Branch metoprolol Yes [id number] 25mg Take 1 U nivers tartrate 25 4-17 tablet by ity of mg tablet 00:00: mouth in [facility] [place] 00 the morning Branch and 1 tablet in the evening. blood sugar 0 Yes [id number] Check U nivers diagnostic 4-17 blood ity of strip 00:00: sugar 2 [place] 00 times a Medical day. Branch E11.9. Brand per insurance. Uses ACCU-CHEK machine Lancets 0 Yes [id number] Check Unive rs Misc 4-17 blood ity of 00:00: sugar 2 [place] 00 times a Medical day. Branch E11.9. Brand per insurance. gabapentin 0 Yes [id number] 300mg Take 1 [facility] 300 mg 4-17 capsule by ity of capsule 00:00: mouth in [place] 00 the Medical morning Branch and 1 capsule at noon and 1 capsule in the evening. amiodarone 2022-0 Yes [id number] 200mg Take 1 [facility] 200 mg 4-17 tablet by ity of tablet 00:00: mouth in [place] 00 the Medical morning. Branch apixaban 5 Yes 5mg Take 1 Unive rs mg tablet 4-17 tablet by ity o f 00:00: mouth in [place] the morning Branch and 1 tablet in the evening. Indication s: ATRIAL FIBRILLATI ON atorvastati Yes [id number] 40mg Take 1 [facility] n 40 mg 4-17 tablet by ity of tablet 00:00: mouth at [place] [address] bedtime. Medical Branch SERTraline Yes [id number] 100mg Take 1 [facility] 100 mg 4-17 tablet by ity of tablet 00:00: mouth in [place] 00 the morning. Branch lisinopriL Yes [id number] 2.5mg Take 1 [facility] 2.5 mg 4-17 tablet by ity of tablet 00:00: mouth in [place] 00 the morning. Branch metoprolol Yes [id number] 25mg Take 1 U nivers tartrate 25 4-17 tablet by ity of mg tablet 00:00: mouth in [facility] [place] the morning Branch and 1 tablet in the evening. blood sugar Yes [id number] Check U nivers diagnostic 4-17 blood ity of strip 00:00: sugar 2 [place] 00 times a Medical day. Branch E11.9. Brand per insurance. Uses ACCU-CHEK machine Lancets Yes [id number] Check Unive rs Misc 4-17 blood ity of 00:00: sugar 2 [place] 00 times a Medical day. Branch E11.9. Brand per insurance. gabapentin Yes [id number] 300mg Take 1 [facility] 300 mg 4-17 capsule by ity of capsule 00:00: mouth in [place] the morning Branch and 1 capsule at noon and 1 capsule in the evening. amiodarone Yes [id number] 200mg Take 1 [facility] 200 mg 4-17 tablet by ity of tablet 00:00: mouth in [place] 00 the morning. Branch apixaban 5 Yes 5mg Take 1 Unive rs mg tablet 4-17 tablet by ity o f 00:00: mouth in [place] the morning Branch and 1 tablet in the evening. Indication s: ATRIAL FIBRILLATI ON atorvastati Yes [id number] 40mg Take 1 [facility] n 40 mg 4-17 tablet by ity of tablet 00:00: mouth at [place] [address] bedtime. Medical Branch SERTraline Yes [id number] 100mg Take 1 [facility] 100 mg 4-17 tablet by ity of tablet 00:00: mouth in [place] the morning. Branch lisinopriL Yes [id number] 2.5mg Take 1 [facility] 2.5 mg 4-17 tablet by ity of tablet 00:00: mouth in [place] the morning. Branch metoprolol Yes [id number] 25mg Take 1 U nivers tartrate 25 4-17 tablet by ity of mg tablet 00:00: mouth in [facility] [place] the morning Branch and 1 tablet in the evening. blood sugar Yes [id number] Check U nivers diagnostic 4-17 blood ity of strip 00:00: sugar 2 [place] times a Medical day. Branch E11.9. Brand per insurance. Uses ACCU-CHEK machine Lancets Yes [id number] Check Unive rs Misc 4-17 blood ity of 00:00: sugar 2 [place] times a Medical day. Branch E11.9. Brand per insurance. gabapentin Yes [id number] 300mg Take 1 [facility] 300 mg 4-17 capsule by ity of capsule 00:00: mouth in [place] the morning Branch and 1 capsule at noon and 1 capsule in the evening. amiodarone Yes [id number] 200mg Take 1 [facility] 200 mg 4-17 tablet by ity of tablet 00:00: mouth in [place] the morning. Branch apixaban 5 Yes 5mg Take 1 Unive rs mg tablet 4-17 tablet by ity o f 00:00: mouth in [place] the morning Branch and 1 tablet in the evening. Indication s: ATRIAL FIBRILLATI ON atorvastati Yes [id number] 40mg Take 1 [facility] n 40 mg 4-17 tablet by ity of tablet 00:00: mouth at [place] [address] bedtime. Medical Branch SERTraline Yes [id number] 100mg Take 1 [facility] 100 mg 4-17 tablet by ity of tablet 00:00: mouth in [place] the morning. Branch lisinopriL 0 Yes [id number] 2.5mg Take 1 [facility] 2.5 mg 4-17 tablet by ity of tablet 00:00: mouth in [place] 00 the morning. Branch metoprolol Yes [id number] 25mg Take 1 U nivers tartrate 25 4-17 tablet by ity of mg tablet 00:00: mouth in [facility] [place] 00 the morning Branch and 1 tablet in the evening. blood sugar 0 Yes [id number] Check U nivers diagnostic 4-17 blood ity of strip 00:00: sugar 2 [place] times a Medical day. Branch E11.9. Brand per insurance. Uses ACCU-CHEK machine Lancets Yes [id number] Check Unive rs Misc 4-17 blood ity of 00:00: sugar 2 [place] times a Medical day. Branch E11.9. Brand per insurance. gabapentin Yes [id number] 300mg Take 1 [facility] 300 mg 4-17 capsule by ity of capsule 00:00: mouth in [place] 00 the morning Branch and 1 capsule at noon and 1 capsule in the evening. amiodarone Yes [id number] 200mg Take 1 [facility] 200 mg 4-17 tablet by ity of tablet 00:00: mouth in [place] 00 the morning. Branch apixaban 5 Yes 5mg Take 1 Unive rs mg tablet 4-17 tablet by ity o f 00:00: mouth in [place] 00 the morning Branch and 1 tablet in the evening. Indication s: ATRIAL FIBRILLATI ON atorvastati 2022-0 Yes [id number] 40mg Take 1 [facility] n 40 mg 4-17 tablet by ity of tablet 00:00: mouth at [place] [address] bedtime. Medical Branch SERTraline 0 Yes [id number] 100mg Take 1 [facility] 100 mg 4-17 tablet by ity of tablet 00:00: mouth in [place] 00 the morning. Branch lisinopriL 2022-0 Yes [id number] 2.5mg Take 1 [facility] 2.5 mg 4-17 tablet by ity of tablet 00:00: mouth in [place] 00 the morning. Branch metoprolol 2022-0 Yes [id number] 25mg Take 1 U nivers tartrate 25 4-17 tablet by ity of mg tablet 00:00: mouth in [facility] s the Medical morning Branch and 1 tablet in the evening. blood sugar Yes [id number] Check U nivers diagnostic 4-17 blood ity of strip 00:00: sugar 2 [place] times a Medical day. Branch E11.9. Brand per insurance. Uses ACCU-CHEK machine Lancets Yes [id number] Check Unive rs Misc 4-17 blood ity of 00:00: sugar 2 [place] times a Medical day. Branch E11.9. Brand per insurance. gabapentin Yes [id number] 300mg Take 1 [facility] 300 mg 4-17 capsule by ity of capsule 00:00: mouth in [place] the morning Branch and 1 capsule at noon and 1 capsule in the evening. amiodarone Yes [id number] 200mg Take 1 [facility] 200 mg 4-17 tablet by ity of tablet 00:00: mouth in [place] the morning. Branch apixaban 5 Yes 5mg Take 1 Unive rs mg tablet 4-17 tablet by ity o f 00:00: mouth in [place] the morning Branch and 1 tablet in the evening. Indication s: ATRIAL FIBRILLATI ON atorvastati Yes [id number] 40mg Take 1 [facility] n 40 mg 4-17 tablet by ity of tablet 00:00: mouth at [place] [address] bedtime. Medical Branch SERTraline Yes [id number] 100mg Take 1 [facility] 100 mg 4-17 tablet by ity of tablet 00:00: mouth in [place] the morning. Branch lisinopriL Yes [id number] 2.5mg Take 1 [facility] 2.5 mg 4-17 tablet by ity of tablet 00:00: mouth in [place] the Medical morning. Branch metoprolol Yes [id number] 25mg Take 1 U nivers tartrate 25 4-17 tablet by ity of mg tablet 00:00: mouth in [facility] [place] the morning Branch and 1 tablet in the evening. blood sugar 2022-0 Yes [id number] Check U nivers diagnostic 4-17 blood ity of strip 00:00: sugar 2 [place] 00 times a Medical day. Branch E11.9. Brand per insurance. Uses ACCU-CHEK machine Lancets Yes [id number] Check Unive rs Misc -17 blood ity of 00:00: sugar 2 [place] 00 times a Medical day. Branch E11.9. Brand per insurance. SERTraline Yes [id number] 100mg Take 1 [facility] 100 mg 4-17 tablet by ity of tablet 00:00: mouth in [place] 00 the Medical morning. Branch SERTraline 2022- No [id number] 100mg Take 1 [facility] 100 mg -04 09-19 tablet by ity of tablet 00:00: 00:00 mouth in [place] 00 :00 the Medical morning. Branch gabapentin 2022- No [id number] 300mg Take 1 [facility] 300 mg 08-05-18 capsule by ity of capsule 00:00: 00:00 mouth in [place] 00 :00 the Medical morning Branch and 1 capsule at noon and 1 capsule in the evening. amiodarone 2022- No [id number] 200mg Take 1 [facility] 200 mg 08-05-18 tablet by ity of tablet 00:00: 00:00 mouth in [place] 00 :00 the Medical morning. Branch apixaban 5 2022- No 5mg Take 1 Univ ers mg tablet 08-0518 tablet by ity of 00:00: 00:00 mouth in [place] 00 :00 the Medical morning Branch and 1 tablet in the evening. Indication s: ATRIAL FIBRILLATI ON atorvastati 2022- No [id number] 40mg Take 1 Univers n 40 mg 08-05-18 tablet by ity of tablet 00:00: 00:00 mouth at [place] 00 :00 bedtime. Medical Branch lisinopriL 2022- No [id number] 2.5mg Take 1 Univers 2.5 mg -04 09-18 tablet by ity of tablet 00:00: 00:00 mouth in [place] 00 :00 the Medical morning. Branch metoprolol 2022- No [id number] 25mg Take 1 [facility] tartrate 25 08-05-18 tablet by it y of mg tablet 00:00: 00:00 mouth in [facility] [place] [facility] as 00 :00 the Medical morning Branch and 1 tablet in the evening. blood sugar 2022- No [id number] Check Univers diagnostic -17 05-18 blood ity of strip 00:00: 00:00 sugar 2 [place] 00 :00 times a Medical day. Branch E11.9. Brand per insurance. Uses ACCU-CHEK machine Lancets 2022-0 3- No [id number] Check Univ ers Misc 4-17 05-18 blood ity of 00:00: 00:00 sugar 2 [place] 00 :00 times a Medical day. Branch E11.9. Brand per insurance. blood sugar 2022-0 3- No [id number] Check Univers diagnostic 4-17 -17 blood ity of strip 00:00: 00:00 sugar 2 [place] 00 :00 times a Medical day. Branch E11.9. Brand per insurance. Uses ACCU-CHEK machine blood sugar 2022-0 3- No [id number] Check Univers diagnostic 4-17 -17 blood ity of strip 00:00: 00:00 sugar 2 [place] 00 :00 times a Medical day. Branch E11.9. Brand per insurance. Uses ACCU-CHEK machine blood sugar 2022-0 3- No [id number] Check Univers diagnostic 4-17 -17 blood ity of strip 00:00: 00:00 sugar 2 [place] 00 :00 times a Medical day. Branch E11.9. Brand per insurance. Uses ACCU-CHEK machine amiodarone 2023-0 Yes 200mg Take 1 Univ ers 200 mg 4-12 tablet by ity of tablet 00:00: mouth in [place] the Medical morning. Branch SERTraline 2023-0 Yes 25mg Take 1 Unive rs 25 mg 4-12 tablet by ity of tablet 00:00: mouth in [place] the Medical morning. Branch amiodarone 2023-0 Yes 200mg Take 1 Univ ers 200 mg 4-12 tablet by ity of tablet 00:00: mouth in [place] the Medical morning. Branch SERTraline 2023-0 Yes 25mg Take 1 Unive rs 25 mg 4-12 tablet by ity of tablet 00:00: mouth in [place] the Medical morning. Branch amiodarone 2023-0 Yes 200mg Take 1 Univ ers 200 mg 4-12 tablet by ity of tablet 00:00: mouth in [place] the Medical morning. Branch SERTraline 2023-0 Yes 25mg Take 1 Unive rs 25 mg 4-12 tablet by ity of tablet 00:00: mouth in [place] 00 the Medical morning. Branch amiodarone 2022-0 3- No 200mg Take 1 Uni vers 200 mg 07-31-17 tablet by ity of tablet 00:00: 00:00 mouth in [place] 00 :00 the Medical morning. Branch SERTraline 2022-0 2023- No 100mg Take 1 Uni vers 100 mg 07-31-17 tablet by ity of tablet 00:00: 00:00 mouth in [place] 00 :00 the Medical morning. Branch amiodarone 2022-0 2023- No 200mg Take 1 Uni vers 200 mg 07-31-17 tablet by ity of tablet 00:00: 00:00 mouth in [place] 00 :00 the Medical morning. Branch SERTraline 2022-0 3- No 100mg Take 1 Uni vers 100 mg 07-31-17 tablet by ity of tablet 00:00: 00:00 mouth in [place] 00 :00 the Medical morning. Branch amiodarone 2022-0 2023- No 200mg Take 1 Uni vers 200 mg 07-31-17 tablet by ity of tablet 00:00: 00:00 mouth in [place] 00 :00 the Medical morning. Branch SERTraline 2022-0 3- No 100mg Take 1 Uni vers 100 mg 07-31-17 tablet by ity of tablet 00:00: 00:00 mouth in [place] 00 :00 the Medical morning. Branch sodium Yes Topical, Univers hypochlorit 4-11 BID, First it y of e 0.025% 01:00: dose on [place] ([facility]) 00 Fri Medical solution 07/29/22 at [facility] h 2000, Until Discontinu ed, Routine iron 2022- No 500mg 500 mg, IV Unive rs sucrose 07-29 Infusion, ity of (VENOFER) 19:15: 23:11 ONCE, [place] 500 mg in 00 :00 Administer Medi dilshad NaCl 0.9% over 2.5 Branch (NS) 250 mL Hours, On infusion 07/29/22 at 1415, For 1 dose iopamidol 2022-0 2022- No [id number] 80mL 80 mL, Univers (ISOVUE 07-29 Intravenou ity o f 370-500 mL) 16:26: 16:26 s, ONCE, 1 [place] injection 00 :00 dose, On Medica l 80 mL Mon [place] 07/29/22 at 1145, Routine lidocaine 2022- No 20mL 20 mL, Unive rs 1% 07-29-10 Infiltrati ity of (XYLOCAINE) 16:00: 15:27 on, [...] al s, ONCE, 1 Branch dose, On [facility] 07/29/22 at 1030, Routine acetaminoph Yes 650mg 650 mg, Un anil en 07-29 Oral, ity of (TYLENOL) 01:52: Q6HPRN, [place] tablet 650 10 Starting Medic al mg on [facility] 07/28/22 at 205, Until Discontinu ed, Routine, Pain (scale 1-3), Temp > 38 C sodium 2022- No 50meq 50 mEq, Univer s bicarbonate 07-28-09 Slow IV ity of 1 mEq/mL 20:00: 19:38 Push, [place] (8.4 %) 00 :00 ONCE, 1 Medical injection dose, On Branch 50 mEq [place] 07/28/22 at 1500, Routine amiodarone Yes 200mg 200 mg, Uni vers (PACERONE) 07-28 Oral, ity of tablet 200 14:00: DAILY, [place] mg 00 First dose Medical on [facility] 07/28/22 at 0900, Until Discontinu ed, Routine SERTraline Yes 25mg 25 mg, Unive rs (ZOLOFT) 07-28 Oral, ity of tablet 25 14:00: DAILY, [place] mg 00 First dose Medical on [facility] 07/28/22 at 0900, Until Discontinu ed, Routine Sliding Yes Subcutaneo Univ ers Scale -09 us, TID ity of Insulin - 13:00: MEALS+HS, [place] as Lispro 00 First dose Medical (HumaLOG) + on [place] Branch [facility] 07/28/22 at Testing 0800, Until Discontinu ed, Routine levETIRAcet No 500mg 500 mg, U nivers am (KEPPRA) 07-28 Oral, BID, i ty of tablet 500 13:00: 12:48 First dose [place] mg 00 :43 on [place] Medical 07/28/22 at Branch 0800, Until Discontinu ed, Routine vancomycin No 15mg/kg 1,500 mg Univers (VANCOCIN) 07-28 (rounded ity of 1,500 mg in 11:00: 13:55 from 1,380 [place] NaCl 0.9% 00 :31 mg = 15 Medical (NS) 500 mL mg/kg ?92 [facility] VIAL-MATE kg), IV IV Piggyback, piggyback Q24H ABX, 7 doses, First dose (after last modificati on) on [place] 07/28/22 at 0600, Last dose on [facility] 08/03/22 at 0600, Administer over 90 Minutes, 500 mL
Reas on for Anti-Infec tive: Documented Infection< br>Documen yana Infection Site: Skin / Soft Tissue
Duration of Therapy: 7 days furosemide No 20mg 20 mg, Univ ers (LASIX) 07-28 Slow IV ity of injection 10:30: 10:30 Push, [place] 20 mg 00 :00 ONCE, 1 Medical dose, On Branch [place] 07/28/22 at 0530, Routine NaCl 0.9% No 500mL at 999 [facility] ers (NS) bolus 07-28 mL/hr, 500 it y of infusion 09:54: 11:57 mL, IV [place] 500 mL 00 :00 Piggyback, Medical ONCE, 1 Branch dose, On [place] 07/28/22 at 0500, STAT lactated 2022- No 1000mL at 999 [facility] ers ringers IV 07-28 mL/hr, ity of infusion 08:30: 09:06 1,000 mL, [place] 1,000 mL 00 :00 Intravenou Medic al s, ONCE, 1 Branch dose, On [place] 07/28/22 at 0330, Routine HEPARIN 2022-0 2022- No 4000U 4,000 Univers SODIUM 07-28-09 Units, IV ity of (PORCINE) 07:45: 08:24 Push, [place] 1,000 00 :00 ONCE, 1 Medical UNIT/ML dose, On Branch BOLUS ACS [place] 07/28/22 ORDER SET at 0245, GELA dextrose 2022-0 Yes 250mL 250 mL, IV Un anil 10% (D10W) 07-28 Infusion, ity of bolus 07:32: PRN - SEE [place] infusion 32 INSTRUCTIO Medic al 250 mL NS, Branch Administer over 60 Minutes, Other, If blood glucose is < or = 70 mg/dL and patient is unable to swallow or has mental status changes, Starting on [place] 07/28/22 at 0232
If blood glucose is [...] glucose is < 80 mg/dL, repeat.
glucagon Yes 1mg 1 mg, Univers (GLUCAGEN 07-28 Intramuscu ity of DIAGNOSTIC 07:32: [place], PRN, [place] KIT) 26 Starting Medical injection 1 on [facility] mg 07/28/22 at 0232, Until Discontinu ed, [...] NS Parameters in Admin. Instr., Starting on [place] 07/28/22 at 0230
In itiate dosing:&nb sp; [...] Rang e, Dosing and Testing: &nbs p;FOR [facility], AND [facility] ONLY &nbs p; - aPTT < [...] mL vial) 11 :03 on [facility] for 07/28/22 at Branch Rebolusing 0230, Until 07/29/22 at 0943, Routine
Dosing based on aPPT testing parameters (refer to continuous heparin drip order).
ceFEPIme 2022- No 1000mg 1,000 mg, U nivers (MAXIPIME) 07-28-09 IV ity of 1,000 mg in 07:30: 09:39 [facility] [place] NaCl 0.9% 00 :00 ONCE, 1 Medical [...] 250 mL 00 Q24H ABX, Med ical VIAL-in house counsel dose Bran ch IV on Fri piggyback [...] of Therapy: Other (see Comments) cephALEXin Yes [id number] 500mg Take 1 [facility] (KEFLEX) 07-19 capsule by ity o f 500 mg 00:00: mouth 4 [place] capsule 00 (four) Medical times Branch daily. cephALEXin 2022- No [id number] 500mg Take 1 [facility] (KEFLEX) 07-19 capsule by [facility]y of 500 mg 00:00: [...] s: acute pain sulfamethox 2022-0 2022- Yes [id number] 2{tbl} Take 2 [facility] azole-trime 07-19 tablets [...] OF JUICE OR WATER HYDROcodone 2022-0 Yes [id number] 1{tbl} Q6H Take 1 M ethodi -acetaminop [...] OF JUICE OR WATER HYDROcodone 2022-0 Yes [id number] 1{tbl} Q6H Take 1 M ethodi -acetaminop [...] 2 l (two) times a day. docusate 2023-0 Yes 100mg Q.5D Take 1 Method i [...] OF JUICE OR WATER HYDROcodone 2022-0 Yes [id number] 1{tbl} Q6H Take 1 M ethodi -acetaminop [...] SLIDING l subcutaneou SCALE s pen acetaminoph 2023-0 Yes 650mg Q6H Take 2 Met hodi [...] OF JUICE OR WATER HYDROcodone 2022-0 Yes [id number] 1{tbl} Q6H Take 1 M ethodi -acetaminop [...] (six) hours as needed for fever. famotidine 0 Yes 20mg Q.5D Take 1 [...] OF JUICE OR WATER HYDROcodone 2022-0 Yes [id number] 1{tbl} Q6H Take 1 M ethodi -acetaminop [...] OF JUICE OR WATER HYDROcodone 2022-0 Yes [id number] 1{tbl} Q6H Take 1 M ethodi -acetaminop [...] mouth 2 (two) times a day. lisinopriL 3-0 Yes 2.5mg QD Take 1 [facility] (PRINIVIL) 3-[address] 2.5 mg 15:57: (2.5 mg Hospita tablet 16 total) by l mouth daily. metoprolol 3-0 Yes 25mg Q12H Take 1 Metho di tartrate 3-15 tablet (25 st (LOPRESSOR) 15:57: mg total) H [facility]spita 25 mg 16 by mouth l tablet every 12 (twelve) hours. polyethylen 3-0 Yes 17g QD Take 17 g M ethodi e glycol 3-[address] (MIRALAX) 15:57: daily. MIX Ho spita 17 gram 16 WITH 6 OZ l packet OF JUICE OR WATER HYDROcodone 3-0 Yes [id number] 1{tbl} Q6H Take 1 M ethodi -acetaminop [...] (six) hours as needed for fever. lidocaine Yes Place 1 [facility] % 3-[address] 00:00: the skin [facility]osp[facility] 00 daily. l Remove and discard patch within 12 hours or as directed by physician. lidocaine Yes Place 1 [facility] % 3-[address] 00:00: the skin [facility]osp[facility] 00 daily. l Remove and discard patch within 12 hours or as directed by physician. lidocaine Yes Place 1 [facility] % 3-15 [...] Infuse 1 g [facility] g in sodium 3-15 03-[address] chloride 00:00: 04:59 venous Hospit a 0.9% 100 mL 00 :00 catheter l IVPB every 12 (twelve) hours for 6 days. vancomycin 2023-0 2023- No 1000mg Q12H Infuse [facility] 1,000 mg in 07-03 1,[address] sodium 00:00: 04:59 into a [facility]ospita chloride 00 :00 venous l 0.9% 250 mL catheter IVPB every 12 (twelve) hours for 6 days. meropenem 1 3-0 2023- No 1g Q12H Infuse 1 g [facility] in sodium 07-[address] chloride 00:00: 04:59 venous Hospit a 0.9% 100 mL 00 :00 catheter l IVPB every 12 (twelve) hours for 6 days. vancomycin 2023-0 2023- No 1000mg Q12H Infuse [facility] 1,000 mg in 07-03 1,[address] sodium 00:00: 04:59 into a [facility]ospita chloride 00 :00 venous l 0.9% 250 mL catheter IVPB every 12 (twelve) hours for 6 days. meropenem 1 3-0 2023- No 1g Q12H Infuse 1 g [facility] g in sodium 07-[address] chloride 00:00: 04:59 venous Hospit a 0.9% 100 mL 00 :00 catheter l IVPB every 12 (twelve) hours for 6 days. vancomycin 2023-0 2023- No 1000mg Q12H Infuse [facility] 1,000 mg in 07-03 1,[address] sodium 00:00: 04:59 into a [facility]ospita chloride 00 :00 venous l 0.9% 250 mL catheter IVPB every 12 (twelve) hours for 6 days. meropenem 1 3-0 2023- No 1g Q12H Infuse 1 g [facility] g in sodium 07-[address] chloride 00:00: 04:59 venous Hospit a 0.9% 100 mL 00 :00 catheter l IVPB every 12 (twelve) hours for 6 days. vancomycin 2023-0 2023- No 1000mg Q12H Infuse Me thodi [...] 12 (twelve) hours for 6 days. levoFLOXaci 2022-0 2022- No [id number] 500mg QD Take 1 [facility] n 06-[id number] (Levaquin) 00:00: 00:00 (500 mg [facility] 500 MG 00 :00 total) by l tablet mouth daily. levoFLOXaci 2022-0 2022- No [id number] 500mg QD Take 1 [facility] 06-[id number] (Levaquin) 00:00: 00:00 (500 mg [facility] 500 MG 00 :00 total) by l tablet mouth daily. levoFLOXaci 2022-0 2022- No [id number] 500mg QD Take 1 [facility] n 06-[id number] (Levaquin) 00:00: 00:00 (500 mg [facility] 500 MG 00 :00 total) by l tablet mouth daily. levoFLOXaci 2022-0 3- No [id number] 500mg QD Take 1 [facility] n 06-[id number] (Levaquin) 00:00: 00:00 (500 mg [facility] 500 MG 00 :00 total) by l tablet mouth daily. levoFLOXaci 2022-0 3- No [id number] 500mg QD Take 1 [facility] n 06-[id number] (Levaquin) 00:00: 00:00 (500 mg [facility] 500 MG 00 :00 total) by l tablet mouth daily. levoFLOXaci 2022-0 2022- No [id number] 500mg QD Take 1 [facility] n 06-[id number] (Levaquin) 00:00: 00:00 (500 mg [facility] 500 MG 00 :00 total) by l tablet mouth daily. levoFLOXaci 2022-0 2022- No [id number] 500mg QD Take 1 [facility] n 06-[id number] (Levaquin) 00:00: 00:00 (500 mg [...] MG 00:00: Hospita capsule 00 l sennosides- 3-0 2023- No 2{tbl} Take 2 [...] :00 l 8.6-50 mg per tablet sennosides- 2022-2022- No 2{tbl} Take 2 M ethodi docusate 05-[address] sodium 00:00: 00:00 mouth. Hospita (SENOKOT-S) 00 :00 l 8.6-50 mg per tablet sennosides- 2022-2022- No 2{tbl} Take 2 M ethodi docusate 05-[address] sodium 00:00: 00:00 mouth. Hospita (SENOKOT-S) 00 :00 l 8.6-50 mg per tablet sennosides- 2022-0 2022- No 2{tbl} Take 2 M ethodi docusate 05-[address] sodium 00:00: 00:00 mouth. Hospita (SENOKOT-S) 00 :00 l 8.6-50 mg per tablet sennosides- 2022- No 2{tbl} Take 2 M ethodi docusate 05-[address] sodium 00:00: 00:00 mouth. [...] 2022- No 14U QD Inject Methodi detemir 1-24 02-[address] U-100 00:00: 05:59 (14 [...] QD Take 17 g Methodi e glycol 1-24 02-[address] (MIRALAX) 00:00: 05:59 daily [...] times a day for 30 days. polyethylen No 17g QD Take 17 g Methodi e glycol 05-[address] (MIRALAX) 00:00: 05:59 daily for Ho [facility]ita 17 gram 00 :00 30 days. l packet senna 2022- No 2{tbl} Q24H Take 2 [facility] (SENOKOT) 05-[address] 8.6 mg 00:00: 05:59 mouth [facility]ospita tablet 00 :00 daily as l needed for constipati on for up to 30 days. sertraline No 50mg QD Take 1 Meth gre[facility] (ZOLOFT) 50 05-14 tablet (50 s t MG tablet 00:00: 05:59 mg total) Ho spita 00 :00 by mouth l daily for 30 days. lisinopriL No 2.5mg QD Take 1 Met hodi [...] 100 unit/mL for 30 injection days. metoprolol 0 2022- No 25mg Q.5D Take 1 [facility] tartrate 05-14- tablet (25 st (LOPRESSOR) 00:00: 05:59 mg total) Hospita 25 mg 00 :00 by mouth 2 l tablet (two) times a day for 30 days. acetaminoph 2022-2022- No 650mg Q6H Take 2 Me thodi [...] for up to 30 days. sertraline 2022-0 2023- No 50mg QD Take 1 Meth gre[facility] (ZOLOFT) 50 05-14 tablet (50 s t MG tablet 00:00: 05:59 mg total) Ho spita 00 :00 by mouth l daily for 30 days. lisinopriL No 2.5mg QD Take 1 Met hodi [...] hours for 10 days. HYDROcodone 2022- [place] [id number] 1{tbl} Q6H Take 1 [facility] -acetaminop 05-[address] [facility]) 00:00: 05:59 mouth [facility] 10-325 mg [...] hours for 10 days. HYDROcodone 2022-2022- [place] [id number] 1{tbl} Q6H Take 1 [facility] -acetaminop 05-[address] [facility] ([facility]) 00:00: 05:59 mouth [facility] 10-325 mg 00 :00 every 6 l per tablet (six) hours as needed for moderate pain or severe pain for up to 7 days .acute pain. Max Daily Amount: 4 tablets cefTRIAXone 2022-0 2022- No 2g Q12H Infuse 2 g [facility]i (ROCEPHIN) 05-[address] 2 g in 100 00:00: 05:59 venous [facility] ML Mini-Bag 00 :00 catheter l Plus every 12 (twelve) hours for 10 days. HYDROcodone 2022-0 2022- [place] [id number] 1{tbl} Q6H Take 1 [facility] -acetaminop 05-14- tablet by st [employer] ([facility]TX) 00:00: 05:59 mouth [facility] 10-325 mg 00 :00 every 6 l per tablet (six) hours as needed for moderate pain or severe pain for up to 7 days .acute pain. Max Daily Amount: 4 tablets cefTRIAXone 2023-0 202- No 2g Q12H Infuse 2 g [facility] (ROCEPHIN) 05-[address] 2 g in 100 00:00: 05:59 venous [facility] ML Mini-Bag 00 :00 catheter l Plus every 12 (twelve) hours for 10 days. HYDROcodone 2022-0 2022- [place] [id number] 1{tbl} Q6H Take 1 [facility] -acetaminop 05-14- tablet by [employer]) 00:00: 05:59 mouth [facility] 10-325 mg 00 :00 every 6 l per tablet (six) hours as needed for moderate pain or severe pain for up to 7 days .acute pain. Max Daily Amount: 4 tablets cefTRIAXone 3-0 2023- No 2g Q12H Infuse 2 g [facility] (ROCEPHIN) 05-[address] 2 g in 100 00:00: 05:59 venous [facility] ML Mini-Bag 00 :00 catheter l Plus every 12 (twelve) hours for 10 days. HYDROcodone 2022-0 2022- [place] [id number] 1{tbl} Q6H Take 1 [facility] -acetaminop 05-14 tablet by [employer]) 00:00: 05:59 mouth [facility] 10-325 mg [...] hours for 10 days. HYDROcodone 2022- No [id number] 1{tbl} Q6H Take 1 [facility] -acetaminop 05-[address] [facility] ([facility]) 00:00: 05:59 mouth [facility] 10-325 mg [...] (twelve) hours for 10 days. HYDROcodone 2022- 1{tbl} Q6H Take 1 [facility] -acetaminop 05-[address] [facility] ([facility]) 00:00: 05:59 mouth [facility] 10-325 mg 00 :00 every 6 l per tablet (six) hours as needed for moderate pain or severe pain for up to 7 days .acute pain. Max Daily Amount: 4 tablets apixaban 2021-04 No 5mg Q.5D Take 1 [...] for 30 days. insulin 2021-04 No 0U [id number] Inject M ethodi lispro 05-25 [id number] 0-[address] (ADMELOG) 00:00: 05:59 3D [...] for 30 days. insulin 2021-04- No 0U [id number] Inject M ethodi lispro 05-25 [id number] 0-[address] (ADMELOG) 00:00: 05:59 3D [...] for 30 days. insulin 2021-04- No 0U [id number] Inject M ethodi lispro 05-25 [id number] 0-[address] (ADMELOG) 00:00: 05:59 3D [...] for 30 days. insulin 2021-04- No 0U [id number] Inject M ethodi lispro 05-25 [id number] 0-[address] (ADMELOG) 00:00: 05:59 3D [...] for 30 days. insulin 2021-04- No 0U [id number] Inject M ethodi lispro 05-25 [id number] 0-[address] (ADMELOG) 00:00: 05:59 3D [...] for 30 days. insulin 2021-04- No 0U [id number] Inject M ethodi lispro 05-25 [id number] 0-[address] (ADMELOG) 00:00: 05:59 3D [...] for 30 days. insulin 2021-04- No 0U [id number] Inject M ethodi lispro 05-25 [id number] 0-[address] (ADMELOG) 00:00: 05:59 3D [...] 400mg Q.5D Take 2 [facility] (ZOVIRAX) 2-30 -[address] 200 MG 00:00: 05:59 (400 mg Hospita capsule 00 :00 total) by l mouth 2 (two) times a day for 10 days. acyclovir 2021-04- No 400mg Q.5D Take 2 [facility] (ZOVIRAX) 2-30 -[address] 200 MG 00:00: 05:59 (400 mg [facility]ospita capsule 00 :00 total) by l mouth 2 (two) times a day for 10 days. acyclovir 2021-04- No 400mg Q.5D Take 2 [facility] (ZOVIRAX) 2-30 -[address] 200 MG 00:00: 05:59 (400 mg [facility]osp[facility] capsule 00 :00 total) by l mouth 2 (two) times a day for 10 days. acyclovir 2021-04- No 400mg Q.5D Take 2 [facility] gre[facility] (ZOVIRAX) 230 -[address] 200 MG 00:00: 05:59 (400 mg [facility]ospita capsule 00 :00 total) by l mouth 2 (two) times a day for 10 days. acyclovir 2021-04- No 400mg Q.5D Take 2 Meth gre[facility] (ZOVIRAX) 230 -[address] 200 MG 00:00: 05:59 (400 mg [facility]ospita capsule 00 :00 total) by l mouth 2 (two) times a day for 10 days. acyclovir 2021-04- No 400mg Q.5D Take 2 Meth gre[facility] (ZOVIRAX) 2-30 -[address] 200 MG 00:00: 05:59 (400 mg [facility]ospita capsule 00 :00 total) by l mouth 2 (two) times a day for 10 days. acyclovir 2021-04- No 400mg Q.5D Take 2 Meth gre[facility] (ZOVIRAX) 2-30 -[address] 200 MG 00:00: 05:59 [...] 30 injection days. insulin 2021-04- No 0U [id number] Inject M ethodi lispro 05-14- [id number] 0-[address] (ADMELOG) 00:00: 00:00 3D [...] 30 injection days. insulin 2021-04- No 0U [id number] Inject M ethodi lispro 05-14 [id number] 0-[address] (ADMELOG) 00:00: 00:00 3D [...] 30 injection days. insulin 2021-04- No 0U [id number] Inject M ethodi lispro 05-14 [id number] 0-[address] (ADMELOG) 00:00: 00:00 3D [...] 30 injection days. insulin 2021-04- No 0U [id number] Inject M ethodi lispro 05-14 [id number] 0-[address] (ADMELOG) 00:00: 00:00 3D [...] Take 1 Met h[facility] (PLAVIX) 75 - 12-30 tablet (75 s t mg tablet 00:00: 00:00 mg total) Ho spita 00 :00 by mouth l daily for 30 days. atorvastati 2021-04- No 40mg QD Take 2 Met hodi n (LIPITOR) -24 12-[address] 20 mg 00:00: 00:00 (40 mg Hospita tablet 00 :00 total) by l mouth daily for 30 days. insulin 2021-04- No 30U QD Inject 0.3 Met hodi detemir 05-14 12-30 mL (30 st U-100 00:00: 00:00 Units Hospita (Levemir 00 :00 total) l U-100 under the Insulin) skin daily 100 unit/mL for 30 injection days. insulin 2021-04 No 0U [id number] Inject M ethodi lispro 05-14 [id number] 0-[address] (ADMELOG) 00:00: 00:00 3D [...] QD Take 1 [facility] (PLAVIX) 75 24 12-30 tablet (75 s t mg tablet 00:00: 00:00 mg total) Ho spita 00 :00 by mouth l daily for 30 days. atorvastati 2021-04- No 40mg QD Take 2 Met hodi n (LIPITOR) -24 12-[address] 20 mg 00:00: 00:00 (40 mg Hospita tablet 00 :00 total) by l mouth daily for 30 days. insulin 2021-04 No 30U QD Inject 0.3 Met hodi detemir 05-14 12-30 mL (30 st U-100 00:00: 00:00 Units Hospita (Levemir 00 :00 total) l U-100 under the Insulin) skin daily 100 unit/mL for 30 injection days. insulin 2021-04- No 0U [id number] Inject M ethodi lispro 05-14 [id number] 0-[address] (ADMELOG) 00:00: 00:00 3D [...] 30 injection days. insulin 2021-04- No 0U [id number] Inject M ethodi lispro 05-14 [id number] 0-[address] (ADMELOG) 00:00: 00:00 3D [...] Take 1 Me [facility] in (Cipro) 05-[address] 500 MG 00:00: 05:59 (500 [...] metFORMIN 2022- No metformin [facility] (GLUCOPHAGE 8-24 1,[address] ) 1,000 mg 00:00: 00:00 tablet [facility] tablet 00 :00 Take 1 l tablet twice a day by oral route for 90 days.Stren gth: 1,000 mg metFORMIN 2022- No metformin [facility] (GLUCOPHAGE 826 01-24 1,[address] ) 1,000 mg 00:00: 00:00 tablet [facility] tablet 00 :00 Take 1 l tablet twice a day by oral route for 90 days.Stren gth: 1,000 mg metFORMIN 2022- No metformin [facility] (GLUCOPHAGE 826 -24 1,[address] ) 1,000 mg 00:00: 00:00 tablet [facility] tablet 00 :00 Take 1 l tablet twice a day by oral route for 90 days.Stren gth: 1,000 mg metFORMIN 2022-0 202- No metformin Me [facility] (GLUCOPHAGE 824 1,[address] ) 1,000 mg 00:00: 00:00 tablet [facility] tablet 00 :00 Take 1 l tablet twice a day by oral route for 90 days.Stren gth: 1,000 mg metFORMIN 202-0 202- No metformin Me [facility] (GLUCOPHAGE 12-14 1,[address] ) 1,000 mg 00:00: 00:00 tablet [facility] tablet 00 :00 Take 1 l tablet twice a day by oral route for 90 days.Stren gth: 1,000 mg metFORMIN 2-0 202- No metformin Me [facility] (GLUCOPHAGE 805-14 1,[address] ) 1,000 mg 00:00: 00:00 tablet [facility] tablet 00 :00 Take 1 l tablet twice a day by oral route for 90 days.Stren gth: 1,000 mg metFORMIN 2021-0 2022- No metformin Me [facility] (GLUCOPHAGE 12-14 1,[address] ) 1,000 mg 00:00: 00:00 tablet [facility] tablet 00 :00 Take 1 l tablet twice a day by oral route for 90 days.Stren gth: 1,000 mg nicotine 2021-0 2021- No 1{patch QD Place 1 Me [facility] (NICODERM 12-14 } patch on st CQ) 21 00:00: 04:59 the skin Hospit a mg/24 hr 00 :00 daily for l 30 days. nicotine 2022-0 2022- No 1{patch QD Place 1 Me [facility] (NICODERM 12-14 } patch on st CQ) 21 00:00: 04:59 the skin Hospit a mg/24 hr 00 :00 daily for l 30 days. nicotine 2022-0 2022- No 1{patch QD Place 1 Me [facility] (NICODERM 12-14 } patch on st CQ) 00:00: 04:59 the skin Hospit a mg/24 hr 00 :00 daily for l 30 days. nicotine 202-0 2022- No 1{patch QD Place 1 Me [...] 8-26 09-26 } patch on st CQ) 00:00: 04:59 the skin Hospit a mg/24 hr 00 :00 daily for l 30 days. nicotine 2021- No 1{patch QD Place 1 Me th[facility] (NICODERM 8-26 09-26 } patch on st CQ) 00:00: [...] a capsule day for 10 [place] [id number] 50mg Q6H Take 1 Metho di (ULTRAM) 50 11-08 tablet (50 s t mg tablet 00:00: 04:59 mg total) Ho [facility]ita 00 :00 by mouth l every 6 (six) hours as needed for moderate pain for up to 7 [place] [id number] 50mg Q6H Take 1 Metho di (ULTRAM) 50 11-08 tablet (50 s t mg tablet 00:00: 04:59 mg total) Ho spita 00 :00 by mouth l every 6 (six) hours as needed for moderate pain for up to 7 days .acute pain. traMADoL 2021- No [id number] 50mg Q6H Take 1 Metho di (ULTRAM) 50 11-08- tablet (50 s t mg tablet 00:00: 04:59 mg total) Ho spita 00 :00 by mouth l every 6 (six) hours as needed for moderate pain for up to 7 days .[place] [id number] 50mg Q6H Take 1 Metho di (ULTRAM) 50 11-08- tablet (50 s t mg tablet 00:00: 04:59 mg total) Ho spita 00 :00 by mouth l every 6 (six) hours as needed for moderate pain for up to 7 days .[place] [id number] 50mg Q6H Take 1 Metho di (ULTRAM) 50 11-08- tablet (50 s t mg tablet 00:00: 04:59 mg total) Ho spita 00 :00 by mouth l every 6 (six) hours as needed for moderate pain for up to 7 days .acute pain. traMADoL 2021- No [id number] 50mg Q6H Take 1 Metho di (ULTRAM) 50 7-08 11-29 tablet (50 s t mg tablet 00:00: 04:59 mg total) Ho spita 00 :00 by mouth l every 6 (six) hours as needed for moderate pain for up to 7 days .acute pain. traMADoL 2021- No [id number] 50mg Q6H Take 1 Metho di (ULTRAM) 50 7-08 11-29 tablet (50 s t mg tablet 00:00: 04:59 mg total) Ho spita 00 :00 by mouth l every 6 (six) hours as needed for moderate pain for up to 7 days .acute pain. traMADoL 2021- No [id number] 50mg Q6H Take 1 [facility]o di (ULTRAM) 50 -08 11-29 tablet (50 s t mg tablet 00:00: 04:59 mg total) Ho spita 00 :00 by mouth l every 6 (six) hours as needed for moderate pain for up to 7 days .acute pain. traMADoL 2021- No [id number] 50mg Q6H Take 1 [facility] di (ULTRAM) 50 -08 11-29 tablet (50 s t mg tablet 00:00: 04:59 mg total) Ho spita 00 :00 by mouth l every 6 (six) hours as needed for moderate pain for up to 7 days .acute pain. losartan 0 Yes [facility] (COZAAR) 50 6-14 st MG tablet 00:00: Hospita 00 l losartan 2021-0 Yes [facility] (COZAAR) 50 6-14 st MG tablet 00:00: Hospita 00 l losartan 2-0 2022- No [facility] (COZAAR) [...] l 875-125 mg per tablet ibuprofen 2022-0 2021- No [facility] (ADVIL) 600 6-14 08-26 st MG tablet 00:00: 00:00 Hospita 00 :00 l amoxicillin 2021-0 2022- No Metho di -pot 6-14 08-26 st clavulanate 00:00: 00:00 Hospi ta (AUGMENTIN) 00 :00 l 875-125 mg per tablet ibuprofen 2021-0 2021- No [facility] (ADVIL) 600 6-14 08-26 st MG tablet 00:00: 00:00 Hospita 00 :00 l amoxicillin 2021-0 202- No Metho di -pot 6-14 08-26 st clavulanate 00:00: 00:00 Hospi ta (AUGMENTIN) 00 :00 l 875-125 mg per tablet ibuprofen 2021-0 2021- No [facility] (ADVIL) 600 6-14 08-26 st MG tablet 00:00: 00:00 Hospita 00 :00 l amoxicillin 2021-0 2022- No Metho di -pot 6-14 08-26 st clavulanate 00:00: 00:00 Hospi ta (AUGMENTIN) 00 :00 l 875-125 mg per tablet ibuprofen 2021-0 2021- No [facility] (ADVIL) 600 6-14 08-26 st MG tablet 00:00: 00:00 Hospita 00 :00 l amoxicillin 2021-0 2- No Metho di -pot 6-14 08-26 st clavulanate 00:00: 00:00 Hospi ta (AUGMENTIN) 00 :00 l 875-125 mg per tablet ibuprofen 2021-0 2021- No [facility] (ADVIL) 600 6-14 08-26 [...] EXPIRES 28 DAYS AFTER FIRST USE. Ultracare 0 Yes Q.25D 4 (four) Met hodi Insulin [...] EXPIRES 28 DAYS AFTER FIRST USE. Ultracare 0 Yes Q.25D 4 (four) Met hodi Insulin [...] 0 days Quantity: 90 {Tablet}Re fills: 0Ordered: 2[facility]ashion, [facility] t: 2 Lantus 100 0 No 10{unit Lantus 100 2.16.84 UNIT/ML 3-11 s} UNIT/ML 0.1.113 Subcutaneou 00:00: Subcutaneo 883.4.2 s Solution 00 us Solution; 10 units qhs. for 0 days Quantity: 10 {Millilite r}Refills: 0[facility] True Metrix No 1{Each} True Please 2 .16.84 Blood 3-11 Metrix substitut 0.1.113 Glucose 00:00: Blood e prn. 883.4.2 Test In 00 Glucose Vitro Strip Test In Vitro Strip; 1 (one) Each bid for 0 days Quantity: 60 {Each}Refi lls: 5Ordered: 2[facility] t: 2Comments: Please substitute prn. atorvastati Yes Take by Met hodi n (LIPITOR) 3-[address] 20 mg 00:00: Hospita tablet 00 l atorvastati Yes Take by Met hodi n (LIPITOR) 3-[address] 20 mg 00:00: Hospita tablet 00 l atorvastati 2021- No Take by Me thodi n (LIPITOR) 3-11 -[address] 20 mg 00:00: 00:00 Hospita tablet 00 :00 l atorvastati 2021- No Take by Me thodi n (LIPITOR) 3-11 -[address] 20 mg 00:00: 00:00 Hospita tablet 00 :00 l atorvastati 2021- No Take by Me thodi n (LIPITOR) 3-11 -[address] 20 mg 00:00: 00:00 Hospita tablet 00 :00 l atorvastati 2021- No Take by Me th[facility] n (LIPITOR) 3-11 -[address] 20 mg 00:00: 00:00 Hospita tablet 00 :00 l atorvastati 2021- No Take by Me thodi n (LIPITOR) 3-11 -[address] 20 mg 00:00: 00:00 Hospita tablet 00 :00 l atorvastati 2021- No Take by Me thodi n (LIPITOR) 311 -[address] 20 mg 00:00: 00:00 Hospita tablet 00 :00 l atorvastati 2021- No Take by Ct thodi n (LIPITOR) 311 -[address] 20 mg 00:00: 00:00 Hospita tablet 00 :00 l metFORMIN 2020-04- No Medication 500mg Q.5D Take 1 [facility] (GLUCOPHAGE 0-15 05-03 refill tablet by [employer] ) 500 mg 00:00: 23:59 mouth 2 tablet 00 :00 times daily (with meals) for 90 days. metFORMIN 2020-04- No Medication 500mg Q.5D Take 1 [facility] (GLUCOPHAGE 0-15 - refill tablet by [employer] ) 500 mg 00:00: 23:59 mouth 2 tablet 00 :00 times daily (with meals) for 90 days. cephalexin 2020- No 500mg [id number] Take 1 [facility] (KEFLEX) 9-14 -22 [id number] capsule s t 500 MG 00:00: 04:59 3D (500 mg Hospita capsule 00 :00 total) by l mouth 3 (three) times a day for 7 days. cephalexin 2020- No 500mg Q.[id number] Take 1 [facility] (KEFLEX) 01-02 [id number] capsule s t 500 MG 00:00: 04:59 [...] 9-15 (Same as: l hydrochlori 14:00: Glucophage Tina de 500 MG 00 XR) "Do Extended Not Crush" Release Tablet Azithromyci No Notes: [place] betty n 9-15 Take 1 l 14:00: hour Guille 00 before or 2 hours after meals. (Same As: Zithromax) Prednisone No Notes: Memor ia 9-15 Take with l 14:00: food. Tina 00 24 HR Yes 1,000 mg = Memori a Metformin 9-15 2 tab, PO, l hydrochlori 00:46: BID, # 120 Guille de 500 MG 10 tab, 0 Extended Refill(s), Release Pharmacy: Tablet [facility] [id number] [facility] 120 ACTUAT Yes 2 puff, [place] betty Albuterol 9-15 INHALATION l 0.1 00:46: , QID, # 1 Guille MG/ACTUAT / 00 ea, 0 Ipratropium Refill(s), [place]: 0.02 [place] [id number] MG/ACTUAT IN [facility] Metered Dose Inhaler [Combivent 20/100] predniSONE Yes 20 mg = 1 Me moria 20 mg oral 9-15 tab, PO, l tablet 00:46: Daily, X 3 Keesha nn 00 day, # 3 tab, 0 Refill(s), Pharmacy: [place] [id number] [facility] Insulin No 60 units) [place] betty regular 01-02 WASTE: F/P l 21:18: - Black; E - [employer] Class Mail Trash Bin Stable for 28 days at [...] Syringe 01-02 25 mL, l 21:18: Route: IVP, Drug Form: INJ, Dosing Weight 88.21, kg, PRN, PRN Blood Glucose Results, Start date: 01/03/16 16:18:00 CDT, Duration: 30 day, Stop date: 02/02/16 16:17:00 CDT Albuterol No Notes: Memori a 0.833 MG/ML 01-02 (Same as: l / 19:00: Duoneb) Ipratropium [facility] 0.167 MG/ML Inhalant Solution Enoxaparin No Notes: Memor ia 01-02 (Same as: l 14:00: Lovenox) Ceftriaxone No Notes: [place] betty 01-02 (Same As: l 14:00: Rocephin). Use with 100 mL NS and infuse over 30 min MEDICATION WASTE Product Size: 1000 mg Product Wasted: ___ mg Sodium No 25 mL, Memoria Chloride 01-02 Route: IV, l 0.9% IV 13:53: Start Guille 00 date: 01/03/16 8:53:00 CDT, Duration: 30 day, Stop date: 02/02/16 8:52:00 CDT, PRN Line Flush BD Normal No Notes: Memori a Saline 01-02 (Same as: l Flush 13:53: BD Guille 00 Posiflush) BD Normal No Notes: Memori a Saline 14 (Same as: l Flush 13:52: BD Tina 00 Posiflush) Albuterol No Notes: SEE Me moria 0.83 MG/ML 01-02 RT l Inhalant 13:40: DOCUMENTAT Her mckeon Solution 00 ION (Same as: Proventil) Azithromyci No Notes: [place] betty n 01-02 Take 1 l 13:40: hour Guille 00 before or 2 hours after meals. (Same As: Zithromax) methylPREDN No Notes: [place] betty ISolone 01-02 (Same l SODium 08:01: as:Solu-ME Keesha nn SUCCinate 00 DROL, A-Methapre d) Saline No Notes: Memoria Flush 0.9% 01-02 (Same as: l 08:01: BD Tina 00 Posiflush) 200 ACTUAT No Notes: Memor ia Albuterol 8-30 (albuterol l 0.09 20:00: 90 Tina MG/ACTUAT 00 microgram/ Metered inh 6.7gm Dose [...] PO, l hydrochlori 19:05: BID, # 120 Tina de 500 MG 00 tab, 0 Extended Refill(s) Release Tablet Clindamycin No Notes: [place] betty 8-30 (Same As: l 19:03: Cleocin) Guille 00 Tylenol No Notes: Do Memor ia 30 not exceed l 17:51: 4 gm/day. (Same [...] Crush) Metformin No 500 mg, Memor ia 30 PO, BID, 0 l 12:56: Refill(s) Clindamycin No 900 mg, Mem oria 12-18 Route: l 11:10: IVPB, Tina 00 ONCE, Dosing Weight 78.7, kg, Priority: STAT, Start date: 12/19/15 6:10:00 CDT, Stop date: 12/19/15 6:10:00 CDT Acetaminoph No Notes: Israel betty en 325 MG / 12-18 (Same as: l Hydrocodone 06:19: [place] Keesha nn Bitartrate 00 325/5) Do 5 MG Oral not exceed Tablet 4gm/day of [[place] acetaminop 5/325] hen. Insulin No Notes: Memoria regular 12-12 (Same as: l 05:07: Humulin R Tina 00 and NovoLIN R) WASTE: F/P - Black; E - Municipal Trash [employer] (Do not shake) Ativan No 2 mg, Memoria 12-12 Route: PO, l 04:14: Drug form: Tina 00 TAB, ONCE, Dosing Weight 93.182, kg, [...] ts Source Name Name Pneumococcal 2022-04-19 Completed Yarsani 20-valent Conjugate 00:00:00 Hospi [facility]ber Vaccine FLUCELVAX QUAD PF 2022-04-[address] 00:00:00 [facility] Pneumococcal 2022-04-19 Completed Yarsani 20-valent Conjugate 00:00:00 Hospi amber Vaccine FLUCELVAX QUAD PF 2022-04-[address] 00:00:00 Hospital Pneumococcal 2022-04-19 Completed Yarsani 20-valent Conjugate 00:00:00 Hospi amber Vaccine FLUCELVAX QUAD PF 2022-04-[address] 00:00:00 Hospital Pneumococcal 2022-04-19 Completed Yarsani 20-valent Conjugate 00:00:00 Hospi amber Vaccine FLUCELVAX QUAD PF 2022-04-[address] 00:00:00 [facility] Pneumococcal 2022-04-19 Completed Yarsani 20-valent Conjugate 00:00:00 Hospi amber Vaccine FLUCELVAX QUAD PF 2022-04-[address] 00:00:00 Hospital Pneumococcal 2022-04-19 Completed Yarsani 20-valent Conjugate 00:00:00 Hospi amber Vaccine FLUCELVAX QUAD PF 2022-04-[address] 00:00:00 Hospital Pneumococcal 2022-04-19 Completed Yarsani 20-valent Conjugate 00:00:00 Hospi amber Vaccine FLUCELVAX QUAD PF 2022-04-[address] 00:00:00 [facility] pneumococcal 2016-01-04 Completed [facility] mckeon 23-valent vaccine 01:30:00 influenza virus 2016-01-04 Completed Ronni Han vaccine, inactivated 01:26:00 Vital Signs Vital Name Observation Time Observation Value Comments Source Systolic blood 2022-09-13 113 mm[Hg] [facility] pressure 03:30:00 [facility] Diastolic blood 2022-09-13 59 mm[Hg] [facility] o f pressure 03:30:00 [facility] Heart rate 2022-09-13 62 /min [facility] of 03:30:00 [facility] Respiratory rate 2022-09-13 17 /min [place] [facility] 03:30:00 [facility] Oxygen saturation 2022-09-13 96 /min [facility] of in Arterial blood 03:30:00 [facility] by Pulse oximetry Branch Body temperature 2022-09-13 37.11 Jaqueline [place] of 02:29:00 [facility] Body height 2022-09-13 121.9 cm [place] of 02:29:00 [facility] Body weight 2022-09-13 87.544 kg [place] of 02:29:00 [facility] BMI 2022-09-13 58.89 kg/m2 [place] [facility] 02:29:00 [facility] Systolic blood 2022-09-12 100 mm[Hg] [facility] pressure 18:47:00 [facility] Diastolic blood 2022-09-12 67 mm[Hg] University o f pressure 18:47:00 [facility] Heart rate 2022-09-12 58 /min [place] [facility] 18:47:00 [facility] Body temperature 2022-09-12 36.17 Jaqueline [place] [facility] 18:47:00 [facility] Body weight 2022-09-12 87.544 kg University of 18:47:00 [facility] BMI 2022-09-12 58.89 kg/m2 University of 18:47:00 [facility] Oxygen saturation 2022-09-12 97 /min [facility] in Arterial blood 18:47:00 [facility] by Pulse oximetry Branch Systolic blood 2022-08-14 122 mm[Hg] [facility] pressure 07:31:00 [facility] Diastolic blood 2022-08-14 55 mm[Hg] University o f pressure 07:31:00 [facility] Heart rate 2022-08-14 55 /min [place] [facility] 07:31:00 [facility] Respiratory rate 2022-08-14 15 /min [facility] 07:31:00 [facility] Oxygen saturation 2022-08-14 94 /min University in Arterial blood 07:31:00 [facility] by Pulse oximetry Branch Body temperature 2022-08-14 37 Jaqueline University of 05:10:00 [facility] Body height 2022-08-14 121.9 cm "without my University of 05:10:00 legs" [facility] Body weight 2022-08-14 81.647 kg University of 05:10:00 [facility] BMI 2022-08-14 54.93 kg/m2 University of 05:10:00 [facility] Systolic blood 2022-08-05 175 mm[Hg] [facility] pressure 18:25:00 [facility] Diastolic blood 2022-08-05 71 mm[Hg] University o f pressure 18:25:00 [facility] Heart rate 2022-08-05 60 /min University of 18:24:00 [facility] Body temperature 2022-08-05 36.67 Jaqueline University of 18:24:00 [facility] Respiratory rate 2022-08-05 18 /min University of 18:24:00 [facility] Body height 2022-08-05 121.9 cm University of 18:24:00 [facility] Oxygen saturation 2022-08-05 100 /min [facility] in Arterial blood 18:24:00 [facility] by Pulse oximetry Branch Systolic blood 2022-07-31 130 mm[Hg] [facility] pressure 21:05:00 [facility] Diastolic blood 2022-07-31 47 mm[Hg] University o f pressure 21:05:00 [facility] Heart rate 2022-07-31 61 /min University of 21:05:00 [facility] Body temperature 2022-07-31 36.83 Jaqueline [place] [facility] 21:05:00 [facility] Respiratory rate 2022-07-31 16 /min University of 21:05:00 [facility] Oxygen saturation 2022-07-31 99 /min [facility] in Arterial blood 21:05:00 [facility] by Pulse oximetry Branch Body height 2022-07-29 121.9 cm [facility] [place] [facility] 15:00:00 [facility] Body weight 2022-07-28 92 kg University of 07:00:00 [facility] BMI 2022-07-28 61.89 kg/m2 University of 07:00:00 [facility] Systolic blood 2022-07-19 116 mm[Hg] [facility] pressure 06:20:00 [facility] Diastolic blood 2022-07-19 82 mm[Hg] University o f pressure 06:20:00 [facility] Heart rate 2022-07-19 54 /min [facility] 06:20:00 [facility] Body temperature 2022-07-19 36.5 Jaqueline [facility] 06:20:00 [facility] Respiratory rate 2022-07-19 16 /min [facility] 06:20:00 [facility] Oxygen saturation 2022-07-19 95 /min [facility] in Arterial blood 06:20:00 [facility] by Pulse oximetry [place] Body height 2022-07-19 121.9 cm [facility] 02:38:00 [facility] Body weight 2022-07-19 79.379 kg [facility] 02:38:00 [facility] BMI 2022-07-19 53.40 kg/m2 [facility] 02:38:00 [facility] Temperature 2021-06-29 97 [degF] Method: Oral [id number] 8 13:17:12 3.4.2 Pulse 2021-06-29 77 /min Pattern: [id number] 8 13:17:12 Regular 3.4.2 Respiration Rate 2021-06-29 18 /min Pattern: [id number]. [id number] 13:17:12 Unlabored 3.4.2 BP Systolic 2021-06-29 139 mm[Hg] Patient [id number] 8 13:17:12 Position: 3.4.2 Sitting; Cuff Location: Left Arm; Cuff Size: Standard BP Diastolic 2021-06-29 82 mm[Hg] Patient [id number] 8 13:17:12 Position: 3.4.2 Sitting; Cuff Location: Left Arm; Cuff Size: Standard Systolic blood 2022-07-03 122 mm[Hg] [facility] pressure 17:14:00 Hospital Diastolic blood 2022-07-03 57 mm[Hg] [facility] pressure 17:14:00 Hospital Heart rate 2022-07-03 64 /min [facility]ani 17:14:00 Hospital Body temperature 2022-07-03 37 Jaqueline [facility] 16:20:31 Hospital Respiratory rate 2022-07-03 21 /min [facility]ani 16:20:31 Hospital Oxygen saturation 2022-07-03 98 /min Y[facility]ani in Arterial blood 16:20:31 Hospital by Pulse oximetry Body height 2022-06-29 170.2 cm [facility]ani 02:00:00 Hospital Body weight 2022-06-28 81.149 kg Yarsani 12:00:00 Hospital BMI 2022-06-28 28.02 kg/m2 [facility]ani 12:00:00 Hospital Systolic blood 2021-12-14 140 mm[Hg] [facility] pressure 16:16:14 Hospital Diastolic blood 2021-12-14 72 mm[Hg] [facility] pressure 16:16:14 Hospital Heart rate 2021-12-14 74 /min Yarsani 16:16:14 Hospital Body temperature 2021-12-14 36.22 Jaqueline Yarsani 16:16:14 Hospital Respiratory rate 2021-12-14 20 /min Yarsani 16:16:14 Hospital Oxygen saturation 2021-12-14 100 /min Yarsani in Arterial blood 16:16:14 Hospital by Pulse oximetry Body height 2021-12-11 170.2 cm Yarsani 22:35:00 Hospital Body weight 2021-12-11 88.451 kg Yarsani 22:35:00 [facility] BMI 2021-12-11 30.54 kg/m2 Yarsani 22:35:00 [facility] Systolic blood 2021-02-02 153 mm[Hg] [facility] pressure 16:00:00 Diastolic blood 2021-02-02 79 mm[Hg] [facility] pressure 16:00:00 Heart rate 2021-02-02 84 /min [facility] 16:00:00 Body temperature 2021-02-02 36.67 Jaqueline [facility] 16:00:00 Respiratory rate 2021-02-02 18 /min [facility] 16:00:00 Oxygen saturation 2021-02-02 97 /min [facility] in Arterial blood 16:00:00 by Pulse oximetry Body height 2021-02-02 177.8 cm [facility] 14:44:00 Body weight 2021-02-02 81.647 kg [facility] 14:44:00 BMI 2021-02-02 25.83 kg/m2 [facility] 14:44:00 Temperature Oral 2016-02-16 98 F [facility] josé antonio (F) 02:05:00 Respitory Rate 2016-02-16 Ronni Bach richie 02:05:00 Heart Rate 2016-02-16 [facility] Larry n 02:05:00 Systolic (mm Hg) 2016-02-16 [...] n 21:00:00 Temperature Oral 2016-01-03 97.5 F [facility] Codey rmann (F) 21:00:00 Systolic (mm Hg) 2016-01-03 [facility] 17:00:00 Diastolic (mm Hg) 2016-01-03 [facility] 17:00:00 Respitory Rate 2016-01-03 [facility] richie 17:00:00 Heart Rate 2016-01-03 [facility]ry n 17:00:00 Temperature Oral 2016-01-03 98.2 F [...] 03:33:00 Temperature Oral 2015-12-19 98.8 F [facility] Codey rmann (F) 03:33:00 Respitory Rate 2015-12-19 [...] He rmann 08:15:00 Diastolic (mm Hg) 2015-12-13 [facility] 08:15:00 Respitory Rate 2015-12-13 [facility] richie 08:15:00 Heart Rate 2015-12-13 [facility] Larry n 08:15:00 BMI Calculated 2015-12-13 [facility] richie 03:44:00 Weight 2015-12-13 [facility] Larry n 03:44:00 Height 2015-12-13 170.18 cm [facility] Larry n 03:44:00 Systolic (mm Hg) 2015-12-13 [facility] 03:44:00 Diastolic (mm Hg) 2015-12-13 [facility] 03:44:00 Respitory Rate 2015-12-13 [facility] richie 03:44:00 Heart Rate 2015-12-13 [facility] Larry n 03:44:00 Temperature Oral 2015-12-13 98.8 F [facility] Codey rmann (F) 03:44:00 Procedures Procedure Date / Time Performing Clinician Source Performed HOME HEALTH - OTHER 2022-09-25 05:01:00 [facility] Unassigned, No [facility] EKG-12 LEAD 2022-09-13 03:45:38 [facility] BASIC METABOLIC PANEL 2022-09-13 02:46:00 Hui Paez [facility] (NA, K, CL, CO2, GLUCOSE, Medica l Branch BUN, CREATININE, CA) CONSENT/REFUSAL FOR 2022-09-13 02:24:56 Doctor Unassigned, No Un [facility] DIAGNOSIS AND TREATMENT Name [facility] XR LUMBAR SPINE 5 VW 2022-09-12 20:57:55 Alexandra [facility] HIPS 3 VW LEFT 2022-09-12 20:57:55 Dinh [facility] PROSTATIC SPECIFIC 2022-09-12 19:52:00 Dinh [facility] ANTIGEN [facility] FREE T4 2022-09-12 19:52:00 Dinh [facility] THYROID STIMULATING 2022-09-12 19:52:00 Dinh Alexandra [facility] HORMONE [facility] Branch COMP. METABOLIC PANEL 2022-09-12 19:52:00 Dinh Alexandra [facility] ([id number]) [facility] LIPID PANEL ([id number])(TOTAL 2022-09-12 19:52:00 Alexandra Finnegan [facility] CHOLESTEROL, [facility] TRIGLYCERIDES, HDL) CBC WITH DIFF 2022-09-12 19:52:00 Dinh [facility] GLYCOSYLATED HEMOGLOBIN 2022-09-12 19:52:00 Dinh [facility] (A1C) [facility] URINALYSIS 2022-09-12 19:52:00 Finnegan [facility] DME/SUPPLY JUSTIFICATION 2022-09-04 05:01:00 Doctor Unassigned, No [facility] POCT GLUCOSE (AUTOMATED) 2022-08-14 07:28:00 Jodee [facility] URINE DRUG (IMMUNOASSAY) 2022-08-14 06:10:00 Les Ellsworth [facility] - COMPREHENSIVE DRUG Medical [facility] SCREEN URINALYSIS 2022-08-14 06:10:00 Les Ellsworth [facility] BASIC METABOLIC PANEL 2022-08-14 05:43:00 Les Ellsworth [facility] (NA, K, CL, CO2, GLUCOSE, Medica l Branch BUN, CREATININE, CA) CBC WITH DIFF 2022-08-14 05:43:00 [facility] WHOLE BLOOD 2022-08-14 05:43:00 Les Ellsworth [facility] CONSENT/REFUSAL FOR 2022-08-14 05:01:57 Doctor Unassigned, No Un [facility] DIAGNOSIS AND TREATMENT [facility] DNR 2022-08-07 05:01:00 Doctor Unassigned, No Univer sity [facility] HOME HEALTH 485 2022-08-02 05:01:00 Doctor Unassigned, No Univer sity [facility] POCT GLUCOSE (AUTOMATED) 2022-07-31 22:26:00 [facility] POCT GLUCOSE (AUTOMATED) 2022-07-31 17:13:00 Gael [facility] POCT GLUCOSE (AUTOMATED) 2022-07-31 01:46:00 Gael [facility] POCT GLUCOSE (AUTOMATED) 2022-07-30 23:16:00 [facility] POCT GLUCOSE (AUTOMATED) 2022-07-30 18:42:00 [facility] POCT GLUCOSE (AUTOMATED) 2022-07-30 14:18:00 Malik [facility] MAGNESIUM 2022-07-30 10:58:00 Kelsey [facility] BASIC METABOLIC PANEL 2022-07-30 10:58:00 Kelsey [facility] (NA, K, CL, CO2, GLUCOSE, Medica l Branch BUN, CREATININE, CA) CBC WITH DIFF 2022-07-30 10:58:00 Kelsey [facility] POCT GLUCOSE (AUTOMATED) 2022-07-30 01:36:00 Malik [facility] POCT GLUCOSE (AUTOMATED) 2022-07-29 22:43:00 Gael [facility] POCT GLUCOSE (AUTOMATED) 2022-07-29 18:35:00 Gael [facility] IRON PANEL 2022-07-29 17:06:00 Kelsey [facility] CT ANGIOGRAM LOWER 2022-07-29 16:36:24 Yordy Thornton [facility] EXTREMITY LEFT W CONTRAST Medica l Branch ACTIVATED PARTIAL 2022-07-29 13:53:00 Yordy Thornton [facility] POCT GLUCOSE (AUTOMATED) 2022-07-29 13:45:00 Malik [facility] MAGNESIUM 2022-07-29 10:36[facility] 2022-07-29 10:36:00 Kelsey [facility] HEPATIC FUNCTION PANEL 2022-07-29 10:36:00 Slim [facility] ([id number]) (ALB,T.PRO,BILI Medical Branch T,BU/BC,ALT,AST,ALK PHOS) BASIC METABOLIC PANEL 2022-07-29 10:36:00 Slim [facility] (NA, K, CL, CO2, GLUCOSE, Medica l Branch BUN, CREATININE, CA) CBC WITH DIFF 2022-07-29 10:36:00 Slim [facility] ACTIVATED PARTIAL 2022-07-29 07:13:00 Yordy Thornton [facility] URINALYSIS 2022-07-29 01:44:00 Darius [facility] CREATININE, URINE RANDOM 2022-07-29 01:44:00 [facility] UREA NITROGEN, URINE 2022-07-29 01:44:00 Richard Mccoy [facility] Branch SODIUM, URINE RANDOM 2022-07-29 01:44:[address] [facility] POCT GLUCOSE (AUTOMATED) 2022-07-29 01:17:00 Malik [facility] POCT GLUCOSE (AUTOMATED) 2022-07-28 21:09:00 [facility] BASIC METABOLIC PANEL 2022-07-28 19:01:00 Demetrice Sanchez [facility] (NA, K, CL, CO2, GLUCOSE, Medica l Branch BUN, CREATININE, CA) ACTIVATED PARTIAL 2022-07-28 19:01:00 Yordy Thornton [facility] POCT GLUCOSE (AUTOMATED) 2022-07-28 17:12:00 [facility] BASIC METABOLIC PANEL 2022-07-28 14:28:00 Demetrice Sanchez [facility] (NA, K, CL, CO2, GLUCOSE, Medica l Branch BUN, CREATININE, CA) ACTIVATED PARTIAL 2022-07-28 14:28:00 Yordy Thornton [facility] POCT GLUCOSE (AUTOMATED) 2022-07-28 12:52:00 [facility] HB ECG ROUTINE & RHYTHM 2022-07-28 10:09:24 Scooter Barroso [facility] CREATINE KINASE 2022-07-28 08:02:00 Yordy Thornton [facility] C-REACTIVE PROTEIN 2022-07-28 08:02:00 Yordy [facility] COMP. METABOLIC PANEL 2022-07-28 08:02:00 Yordy Thornton [facility] ([id number]) [facility] VANCOMYCIN RANDOM LEVEL 2022-07-28 08:02:00 Yordy Thornton [facility] SEDIMENTATION RATE 2022-07-28 08:02:00 Yordy [facility] CBC WITH DIFF 2022-07-28 08:02:00 Yordy Thornton [facility] GLYCOSYLATED HEMOGLOBIN 2022-07-28 08:02:00 Yordy Thornton [facility] (A1C) [facility] PROTHROMBIN TIME / INR 2022-07-28 08:02:00 Yordy Thornton [facility] ACTIVATED PARTIAL 2022-07-28 08:02:00 Yordy Thornton [facility] MRSA / MSSA SCREEN BY 2022-07-28 08:02:00 Yordy Thornton [facility] PCR, NARES [facility] POCT GLUCOSE (AUTOMATED) 2022-07-28 08:01:00 Brennan Love [facility] COMP. METABOLIC PANEL 2022-07-19 02:58:00 Adolfo Hurley [facility] ([id number]) [facility] [place] CBC WITH DIFF 2022-07-19 02:58:00 Adolfo Hurley [facility] NOTICE OF PRIVACY 2022-07-19 02:27:02 Doctor Unassigned, No [facility] PRACTICES Name [facility] CONSENT/REFUSAL FOR 2022-07-19 02:25:51 Doctor Unassigned, No [facility] DIAGNOSIS AND TREATMENT Name [facility] POC GLUCOSE 2022-07-03 16:21:00 Naif Cartagena Ho spital POC GLUCOSE 2022-07-03 12:18:00 Naif Cartagena Ho spital POC GLUCOSE 2022-07-03 01:29:00 Naif Cartagena [facility] POC GLUCOSE 2022-07-02 21:46:00 Naif Cartagena Ho spital POC GLUCOSE 2022-07-02 16:16:00 Naif Cartagena [facility] POC GLUCOSE 2022-07-02 12:16:00 Naif Cartagena [facility] BASIC METABOLIC PANEL 2022-07-02 10:11:00 Dayna Lutz [facility] ESTIMATED GFR 2022-07-02 10:11:00 [facility] Y[facility]ital POC GLUCOSE 2022-07-02 01:23:00 Francesca Stevens [facility] POC GLUCOSE 2022-07-01 21:46:00 Francesca Stevens spital XR CHEST 1 VW PORTABLE 2022-07-01 20:15:43 Francesca Stevens [facility] PICC INSERTION REQUEST 2022-07-01 20:09:45 Autumn Martinez [facility] POC GLUCOSE 2022-07-01 16:17:00 Francesca Stevens [facility] CARBAPENEMASE GENES 2022-07-01 16:15:00 Youn[facility] 2022-07-01 12:23:00 Francesca Stevens spital VANCOMYCIN LEVEL, RANDOM 2022-07-01 11:14:00 JoeWilberto freeman [facility] POC GLUCOSE 2022-07-01 01:24:00 Francesca Stevens [facility] POC GLUCOSE 2022-06-30 22:08:00 Francesca Stevens [facility] POC GLUCOSE 2022-06-30 16:12:00 Francesca Stevens spital CARBAPENEMASE GENES 2022-06-30 15:00:00 Hilda [facility] POC GLUCOSE 2022-06-30 12:23:00 Francesca Stevens Ho spital BASIC METABOLIC PANEL 2022-06-30 11:31:00 Hilda [facility] CBC WITH PLATELET AND 2022-06-30 11:31:00 Hilda [facility] DIFFERENTIAL ESTIMATED GFR 2022-06-30 11:31:00 Francesca Stevens [facility] POC GLUCOSE 2022-06-30 01:47:00 YounFrancesca mathew [facility] POC GLUCOSE 2022-06-29 22:47:00 Francesca Stevens Y[facility] POC GLUCOSE 2022-06-29 17:19:00 Francesca Stevens [facility] POC GLUCOSE 2022-06-29 13:13:00 Francesca Stevens [facility] POC GLUCOSE 2022-06-29 02:41:00 Francesca Stevens Yarsani [facility] POC GLUCOSE 2022-06-28 22:40:00 Francesca Stevens Y[facility]ani [facility] POC GLUCOSE 2022-06-28 17:47:00 Francesca Stevens Y[facility] POC GLUCOSE 2022-06-28 13:30:00 Francesca Stevens Y[facility]ani [facility] BASIC METABOLIC PANEL 2022-06-28 12:11:00 Hilda [facility] ESTIMATED GFR 2022-06-28 12:11:00 Francesca Stevens Yarsani Ho spital POC GLUCOSE 2022-06-28 02:28:00 Francesca Stevens Yarsani Ho spital POC GLUCOSE 2022-06-27 22:12:00 Francesca Stevens Ho spital POC GLUCOSE 2022-06-27 17:26:00 Francesca Stevens [facility] spital POC GLUCOSE 2022-06-27 13:29:00 Francesca Stevens [facility] POC GLUCOSE 2022-06-27 02:09:00 Francesca Stevens [facility] POC GLUCOSE 2022-06-26 23:37:00 Francesca Stevens [facility] FUNGUS CULTURE 2022-06-26 23:17:00 Davin Walker Ho spital AFB CULTURE 2022-06-26 23:17:00 Aaron, Davin Faulkner [facility] GRAM STAIN 2022-06-26 23:17:00 Davin Walker Ho spital AFB STAIN 2022-06-26 23:17:00 Aaron, Davin Faulkner Ho spital AFB CULTURE 2022-06-26 23:09:00 Davin Walker [facility] FUNGUS SMEAR 2022-06-26 23:09:00 Aaron, Davin Faulkner Ho spital [employer] STAIN 2022-06-26 23:09:00 Aaron, Davin Faulkner [facility] FUNGUS CULTURE 2022-06-26 23:09:00 Davin Walker [facility] spital [place] AN ELECTIVE 2022-06-26 22:52:00 Jonathan Danielle [facility] SUPRAGLOTTIC AIRWAY DEBRIDEMENT, LOWER 2022-06-26 22:30:00 [facility] EXTREMITY ANAEROBIC CULTURE 2022-06-26 22:17[facility]00 [facility] 2022-06-26 22:17:00 Davin Walker [facility] TISSUE CULTURE 2022-06-26 22:09:00 Cassidy [facility] spital ANAEROBIC CULTURE 2022-06-26 22:09:00 [facility] POC GLUCOSE 2022-06-26 21:46:00 Francesca Stevens [facility]ital POC GLUCOSE 2022-06-26 18:45:00 Francesca Stevens [facility]ital VANCOMYCIN LEVEL, RANDOM 2022-06-26 15:33:00 Brian Powell [facility] POC GLUCOSE 2022-06-26 14:15:00 Francesca Stevens spital CBC WITH PLATELET AND 2022-06-26 11:43:00 Brian Powell [facility] DIFFERENTIAL BASIC METABOLIC PANEL 2022-06-26 11:43:00 Brian Powell [facility] MAGNESIUM LEVEL 2022-06-26 11:43:00 Brian Powell [facility] PROTHROMBIN TIME WITH INR 2022-06-26 11:43:00 Louisa Escobar [facility] ESTIMATED GFR 2022-06-26 11:43:00 Brian Powell [facility] POC GLUCOSE 2022-06-26 02:46:00 Franecsca Stevens spital LACTIC ACID LEVEL, SEPSIS 2022-06-26 02:02:00 [facility] 3 HOURS POC GLUCOSE 2022-06-25 22:12:00 Francesca Stevens spital LACTIC ACID LEVEL, SEPSIS 2022-06-25 22:06:00 Brian Powell [facility] - NOW AND REPEAT 2X EVERY 3 HOURS ECG 12-LEAD 2022-06-25 19:43:10 Brian Powell [facility] INFLUENZA ANTIGEN TEST, 2022-06-25 19:18:00 [facility] REFLEX NEGATIVE TO RPP RESPIRATORY PATHOGEN 2022-06-25 19:18:00 Brian Powell [facility] PANEL WITH COVID-19 RT-PCR METHICILLIN-RESISTANT 2022-06-25 19:15:00 Brian Powell [facility] STAPHYLOCOCCUS AUREUS (MRSA), LEILANI LACTIC ACID LEVEL, SEPSIS 2022-06-25 19:01:00 Brian Powell [facility] - NOW AND REPEAT 2X EVERY 3 HOURS XR CHEST 1 VW PORTABLE 2022-06-25 18:53:03 Brian Powell [facility] XR FEMUR 2 VW LEFT 2022-06-25 18:52:[address] [facility] BLOOD [facility], AEROBIC & 2022-06-25 18:05:00 [facility] ANAEROBIC BLOOD CULTURE, AEROBIC & 2022-06-25 18:00:00 [facility] [place] [facility] ANAEROBIC CBC WITH PLATELET AND 2022-06-25 17:56:00 [facility] DIFFERENTIAL COMPREHENSIVE METABOLIC 2022-06-25 17:56:00 [facility]loe[facility] PANEL PROTHROMBIN TIME WITH INR 2022-06-25 17:56:00 [facility] ESTIMATED GFR 2022-06-25 17:56:00 [facility] MAGNESIUM LEVEL 2022-06-25 17:56:00 [facility] POC GLUCOSE 2022-06-25 17:06:00 Francesca [facility] spital POC GLUCOSE 2022-05-14 17:15:00 Harinder [facility] VENIPUNC NEED PHYS 2022-05-14 16:30:00 Zechariah [facility] SKILL,DX OR RX POC GLUCOSE 2022-05-14 13:17:00 [facility] CBC WITH PLATELET AND 2022-05-14 11:43:00 Ron Pizano [facility] DIFFERENTIAL BASIC METABOLIC PANEL 2022-05-14 11:43:00 Ron Pizano [facility] ESTIMATED GFR 2022-05-14 11:43:00 [facility] POC GLUCOSE 2022-05-14 02:36:00 [facility] POC GLUCOSE 2022-05-13 22:14:00 [facility] POC GLUCOSE 2022-05-13 17:21:00 Harinder [facility] POC GLUCOSE 2022-05-13 13:25:00 Harinder [facility] CBC WITH PLATELET AND 2022-05-13 11:23:00 Ron Pizano [facility] DIFFERENTIAL BASIC METABOLIC PANEL 2022-05-13 11:23:00 Harinder, [facility] ESTIMATED GFR 2022-05-13 11:23:00 [facility]SE 2022-05-13 02:26:00 [facility] POC GLUCOSE 2022 22:54:00 [facility] POC GLUCOSE 2022 17:23:00 [facility] POC GLUCOSE 2022 13:33:00 Harinder [facility] CBC WITH PLATELET AND 2022 10:15:00 Harinder [facility] DIFFERENTIAL BASIC METABOLIC PANEL 2022 10:15:00 [facility] ESTIMATED GFR 2022 10:15:00 [facility] POC GLUCOSE 2022 03:36:00 Harinder [facility] POC GLUCOSE 2022-05-11 22:17:00 [facility] BLOOD CULTURE, AEROBIC & 2022-05-11 21:45:00 Nancy [facility] ANAEROBIC BLOOD CULTURE, AEROBIC & 2022-05-11 21:28:00 Mi Cruz [facility] ANAEROBIC POC GLUCOSE 2022-05-11 17:11:00 Harinder [facility] POC GLUCOSE 2022-05-11 13:14:00 [facility] CBC WITH PLATELET AND 2022-05-11 10:35:00 Harinder [facility] DIFFERENTIAL BASIC METABOLIC PANEL 2022-05-11 10:35:00 [facility] 2022-05-11 10:35:00 [facility] POC GLUCOSE 2022-05-11 02:33:00 Harinder, [facility] POC GLUCOSE 2022-05-10 22:49:00 [facility] BLOOD CULTURE, AEROBIC & 2022-05-10 22:13:00 Nancy [facility] ANAEROBIC HC NERVE BLOCK INJ 2022-05-10 19:31:21 Barcenas, [facility] FEMORAL SINGLE W IMG GUID HC ANESTH SCIATIC NERVE 2022-05-10 19:23:41 Swapna [facility] POC GLUCOSE 2022-05-10 18:34:00 Harinder [facility] SURGICAL PATHOLOGY 2022-05-10 18:13:[address] [facility] REQUEST [place] AN ELECTIVE 2022-05-10 17:24:00 Mari Gamboa [facility] SUPRAGLOTTIC AIRWAY AMPUTATION, BELOW KNEE 2022-05-10 16:57:00 Aaron [facility] POC GLUCOSE 2022-05-10 15:58:00 [facility] TTE COMPLETE, WO 2022-05-10 14:38:42 Mi Cruz [facility] CONTRAST, W DOPPLER ([id number]) POC GLUCOSE 2022-05-10 13:14:00 [facility] CBC WITH PLATELET AND 2022-05-10 12:19:00 Harinder [facility] DIFFERENTIAL BASIC METABOLIC PANEL 2022-05-10 12:19:00 [facility] PARTIAL THROMBOPLASTIN 2022-05-10 12:19:00 [facility] TIME (PTT) PROTHROMBIN TIME WITH INR 2022-05-10 12:19:00 Louisa Escobar [facility] ESTIMATED GFR 2022-05-10 12:19:00 [facility] POC GLUCOSE 2022-05-10 03:02:00 [facility] POC GLUCOSE 2022-05-09 22:30:00 [facility] POC GLUCOSE 2022-05-09 18:05:00 [facility] US ANKLE BRACHIAL INDEX 2022-05-09 17:33:01 Gail West [facility] Gajojaimea VANCOMYCIN LEVEL, RANDOM 2022-05-09 16:42:00 Kenneth Farr [facility] Scooter POC GLUCOSE 2022-05-09 13:14:00 [facility] CBC WITH PLATELET AND 2022-05-09 11:25:00 [facility] DIFFERENTIAL [facility] MAGNESIUM LEVEL 2022-05-09 11:25:00 Gail West H ospital Hijoner COMPREHENSIVE METABOLIC 2022-05-09 11:25:00 Traceenjclarence Gail [facility] PANEL [facility] ESTIMATED GFR 2022-05-09 11:25:00 [facility] Hijoner MANUAL DIFFERENTIAL 2022-05-09 11:25:00 Gail West [facility] POC GLUCOSE 2022-05-09 02:55:00 Noman Brewer MRI FOOT WO CONTRAST LEFT 2022-05-09 02:37:17 Traceeeast [facility] hospitalGail keenan [facility] POC GLUCOSE 2022-05-08 22:46:00 Noman Brewer spital COVID-19 QUALITATIVE 2022-05-08 22:35:00 [facility] RT-PCR Scooter XR FOOT 3+ VW LEFT 2022-05-08 19:44:29 [facility] BLOOD CULTURE, AEROBIC & 2022-05-08 19:34:00 [facility] ANAEROBIC Scooter CBC WITH PLATELET AND 2022-05-08 19:34:00 [facility] DIFFERENTIAL [facility] METABOLIC 2022-05-08 19:34:00 [facility] CenterKenneth [facility] PANEL Scooter C-REACTIVE PROTEIN 2022-05-08 19:34:00 [facility] Scooter SEDIMENTATION RATE 2022-05-08 19:34:00 [facility] ESTIMATED GFR 2022-05-08 19:34:00 [facility] MANUAL DIFFERENTIAL 2022-05-08 19:34:00 [facility] Scooter POC GLUCOSE 2022-05-08 18:06:00 [facility] Center[facility] ospital Scooter POC GLUCOSE 2022-04-19 22:41:00 Nadimpalli, July [facility]ani [facility] ospital CV TRANSESOPHAGEAL 2022-04-19 20:35:00 [facility] ECHOCARDIOGRAM W Angel CARDIOVERSION ECG 12-LEAD 2022-04-19 20:33:57 Jaspreet Cannon Emil [facility] POC GLUCOSE 2022-04-19 17:28:00 Nadericalljulita, Ujly [facility] POC GLUCOSE 2022-04-19 13:31:00 Nadimpalli, July [facility] CBC HEMOGRAM 2022-04-19 12:19:00 Nadimpalli, July [facility] BASIC METABOLIC PANEL 2022-04-19 12:19:00 [facility] MAGNESIUM LEVEL 2022-04-19 12:19:00 [facility] ESTIMATED GFR 2022-04-19 12:19:00 [facility] Yarsani ospital POC GLUCOSE 2022-04-19 10:28:00 [facility] July [facility] POC GLUCOSE 2022-04-19 06:29:00 [facility]westlake [facility] centeralli[facility] July [facility] POC GLUCOSE 2022-04-19 02:51:00 [facility] July [facility] POC GLUCOSE 2022-04-18 22:27:00 [facility] July [facility] POC GLUCOSE 2022-04-18 17:02:00 [facility] Yarsani ospital POC GLUCOSE 2022-04-18 13:25:00 [facility] CBC HEMOGRAM 2022-04-18 12:36:00 Nadimpalli, July [facility] BASIC METABOLIC PANEL 2022-04-18 12:36:00 [facility] ESTIMATED GFR 2022-04-18 12:36:00 [facility] POC GLUCOSE 2022-04-18 10:01:00 [facility] POC GLUCOSE 2022-04-18 07:11:00 [facility] July [facility] URINE DRUGS OF ABUSE 2022-04-18 03:32:00 Sofi [facility] SCREEN POC GLUCOSE 2022-04-18 02:35:00 Nadimpalli, July [facility] POC GLUCOSE 2022-04-17 23:00:00 Nadimpalli, July [facility] NM MYOCARDIAL PERFUSION 2022-04-17 20:04:00 fransisco [facility] REST STRESS 1 DAY CV STRESS TEST NUCLEAR 2022-04-17 20:04:00 Silva [facility] CARDIO POC GLUCOSE 2022-04-17 17:10:00 Nadimpalli, July [facility] POC GLUCOSE 2022-04-17 13:48:00 Nadimpalli, July [facility] BASIC METABOLIC PANEL 2022-04-17 11:17:00 [facility] CBC HEMOGRAM 2022-04-17 11:17:00 Nadimpalli, July [facility] MAGNESIUM LEVEL 2022-04-17 11:17:00 Nadimpalli, July [facility] ESTIMATED GFR 2022-04-17 11:17:00 Nadimpalli, July [facility] POC GLUCOSE 2022-04-17 10:13:00 Nadimpalli, July [facility] POC GLUCOSE 2022-04-17 06:09:00 Nadimpalli, July [facility] POC GLUCOSE 2022-04-17 02:46:00 Nadimpalli, July [facility] POC GLUCOSE 2022-04-16 23:09:00 Nadimpalli, July [facility] POC GLUCOSE 2022-04-16 17:53:00 Nadimpalli, July [facility] POC GLUCOSE 2022-04-16 13:40:00 Nadimpalli, July [facility] POC GLUCOSE 2022-04-16 10:34:00 Nadimpalli, July [facility] CBC HEMOGRAM 2022-04-16 09:46:00 [facility] BASIC METABOLIC PANEL 2022-04-16 09:46:00 [facility] PARTIAL THROMBOPLASTIN 2022-04-16 09:46:00 Renetta Ascencio [facility] TIME (PTT) ESTIMATED GFR 2022-04-16 09:46:00 Uriel Pastor spital POC GLUCOSE 2022-04-16 06:16:00 [facility] Yarsani H ospital POC GLUCOSE 2022-04-16 02:38:00 [facility] Yarsani H ospital POC GLUCOSE 2022-04-15 23:20:00 Uriel Pastor Ho spital PARTIAL THROMBOPLASTIN 2022-04-15 20:59:00 Renetta Ascencio [facility] TIME (PTT) POC GLUCOSE 2022-04-15 17:50:00 Uriel Pastor Ho spital PARTIAL THROMBOPLASTIN 2022-04-15 14:26:00 Renetta Ascencio [facility] TIME (PTT) POC GLUCOSE 2022-04-15 13:50:00 Uriel Pastor spital CBC HEMOGRAM 2022-04-15 09:50:00 Silva [facility] HERPES SIMPLEX VIRUS BY 2022-04-15 09:50:00 Shaikh [facility] PCR HIV 1/2 ANTIGEN/ANTIBODY, 2022-04-15 09:50:00 Shaikh [facility] FOURTH GENERATION, WITH REFLEXES BASIC METABOLIC PANEL 2022-04-15 09:50:00 [facility] ESTIMATED GFR 2022-04-15 09:50:00 Uriel Pastor Ho spital POC GLUCOSE 2022-04-15 09:49:00 Uriel Pastor Ho spital POC GLUCOSE 2022-04-15 06:33:00 Uriel Pastor spital POC GLUCOSE 2022-04-15 05:30:00 Uriel Pastor spital PARTIAL THROMBOPLASTIN 2022-04-15 05:29:00 UgRenetta bhandari [facility] TIME (PTT) POC GLUCOSE 2022-04-15 02:07:00 Uriel Pastor spital POC GLUCOSE 2022-04-14 23:24:00 Uriel Pastor spital PARTIAL THROMBOPLASTIN 2022-04-14 22:35:00 Ugoe [facility] TIME (PTT) POC GLUCOSE 2022-04-14 17:22:00 Uriel Pastor spital URINALYSIS SCREEN AND 2022-04-14 17:00:00 Ugoe [facility] MICROSCOPY, WITH REFLEX TO CULTURE TTE COMPLETE, W CONTRAST, 2022-04-14 16:06:00 [facility] W DOPPLER ([id number]) PARTIAL THROMBOPLASTIN 2022-04-14 15:38:00 [facility] ([facility] POC GLUCOSE 2022-04-14 13:37:00 Uriel Pastor spital CBC HEMOGRAM 2022-04-14 11:19:00 [facility] BASIC METABOLIC PANEL 2022-04-14 11:19:00 [facility] Efren MAGNESIUM LEVEL 2022-04-14 11:19:00 Fahad Costello ESTIMATED GFR 2022-04-14 11:19:00 Fahad Costello POC GLUCOSE 2022-04-14 10:26:00 Fahad Costello POC GLUCOSE 2022-04-14 07:01:00 Fahad Costello HEPATIC FUNCTION PANEL 2022-04-14 06:28:00 [facility] THYROID STIMULATING 2022-04-14 06:28:00 [facility]IN 2022-04-14 06:28:00 [facility] TIME (PTT[facility] Efren POC GLUCOSE 2022-04-14 01:54:00 Fahad Costello POC GLUCOSE 2022-04-14 00:05:00 Fahad Costello ospital Efren XR ABDOMEN 1 VW 2022-04-13 23:25:05 René Baird Ho spital POC GLUCOSE 2022-04-13 22:54:00 Fahad Costello ospital Efren ECG 12-LEAD 2022-04-13 21:50:51 Ugelisabet [facility] BETA HYDROXYBUTYRATE 2022-04-13 21:01:00 [facility] MAGNESIUM LEVEL 2022-04-13 21:01:00 René Baird spital ESTIMATED GFR 2022-04-13 21:01:00 René Baird spital TROPONIN T 2022-04-13 21:01:00 René Baird spital PHOSPHORUS LEVEL 2022-04-13 21:01:00 René Baird ospital BASIC METABOLIC PANEL 2022-04-13 21:01:00 René Baird [facility] POC GLUCOSE 2022-04-13 20:54:00 Fahad Costello ospital Efren ECG 12-LEAD 2022-04-13 20:37:02 Ugoetracie [facility] TROPONIN T 2022-04-13 20:16:00 Ugoetracie [facility] POC GLUCOSE 2022-04-13 19:03:00 Fahad Costello ospital Efren POC GLUCOSE 2022-04-13 14:07:00 Fahad Costello ospital Efren TROPONIN T 2022-04-13 13:25:00 Ugoetracie [facility] TROPONIN T 2022-04-13 12:11:00 Ugelisabet [facility] PARTIAL THROMBOPLASTIN 2022-04-13 12:11:00 Silva [facility] TIME (PTT) PROTHROMBIN TIME WITH INR 2022-04-13 12:11:00 Silva [facility] ANTI XA, UNFRACTIONATED 2022-04-13 12:11:00 Silva [facility] ECG 12-LEAD 2022-04-13 11:43:39 [facility] POC GLUCOSE 2022-04-13 11:41:00 [facility] POC GLUCOSE 2022-04-13 07:07:00 [facility] COVID-19 QUALITATIVE 2022-04-13 05:26:00 [facility] RT-PCR [place] POC GLUCOSE 2022-04-13 05:13:00 [facility] POC GLUCOSE 2022-04-13 04:36:[address] [facility] [address] ANGIOGRAM PE CHEST 2022-04-13 01:07:30 [facility] [place] ECG 12-LEAD 2022-04-12 22:44:44 [facility] [place] XR CHEST 1 VW PORTABLE 2022-04-12 22:03:54 [facility] [place] ECG ED PRELIMINARY 2022-04-12 21:56:45 [facility] INTERPRETATION [place] CRITICAL CARE 2022-04-12 21:56:45 [facility] I[facility]/INJURED PATIENT INIT [place] 30-74 MIN CBC WITH PLATELET AND 2022-04-12 21:56:00 [facility] DIFFERENTIAL [place] COMPREHENSIVE METABOLIC 2022-04-12 21:56:00 [facility] PANEL [place] TROPONIN T 2022-04-12 21:56:00 [facility] [place] B NATRIURETIC PEPTIDE 2022-04-12 21:56:00 [facility] [place] ESTIMATED GFR 2022-04-12 21:56:00 [facility] [place] POC GLUCOSE 2022-03-14 21:43:00 Noman Brewer Ho spital POC GLUCOSE 2022-03-14 17:02:00 Noman Brewer Ho spital POC GLUCOSE 2022-03-14 13:46:00 Noman Brewer Ho spital POC GLUCOSE 2022-03-14 03:02:00 Loquias, Elain Yarsani Ho spital POC GLUCOSE 2022-03-13 23:33:00 Loquias, Elain Yarsani Ho spital POC GLUCOSE 2022-03-13 18:05:00 Loquias, Elain Yarsani Ho spital POC GLUCOSE 2022-03-13 13:57:00 Loquias, Elain Yarsani Ho spital POC GLUCOSE 2022-03-13 02:06:00 Loquias, Elain Yarsani Ho spital POC GLUCOSE 2022-03-12 22:33:00 Loquias, Elain Yarsani Ho spital POC GLUCOSE 2022-03-12 21:31:00 Loquias, Noman Yarsani Ho spital LOWER EXTREMITY 2022-03-12 20:07:00 Davin Walker Ho spital ANGIOGRAM,POSSIBLE ANGIOPLASTY,POSSIBLE STENT POC GLUCOSE 2022-03-12 15:51:00 Ana Luisaquias, Noman Smithist Ho spital CBC WITH PLATELET AND 2022-03-12 10:36:00 Ron Pizano [facility] DIFFERENTIAL BASIC METABOLIC PANEL 2022-03-12 10:36:00 Ron Pizano [facility] PROTHROMBIN TIME WITH INR 2022-03-12 10:36:00 [facility] ESTIMATED GFR 2022-03-12 10:36:00 Ron Pizano [facility] POC GLUCOSE 2022-03-12 02:25:00 Ron Pizano [facility] USPV RADAMES EXTREMITY 2022-03-11 23:31:00 [facility] BILATERAL POC GLUCOSE 2022-03-11 23:16:00 Ron Pizano [facility] POC GLUCOSE 2022-03-11 17:42:00 Ron Pizano [facility] POC GLUCOSE 2022-03-11 13:36:00 Ron Pizano [facility] CBC WITH PLATELET AND 2022-03-11 12:48:00 Ron Pizano [facility] DIFFERENTIAL COMPREHENSIVE METABOLIC 2022-03-11 12:48:00 Ron Pizano [facility] PANEL ESTIMATED GFR 2022-03-11 12:48:00 Harinder, [facility] POC GLUCOSE 2022-03-11 02:16:00 [facility] METHICILLIN-RESISTANT 2022-03-11 00:23:00 Laurence Abreu [facility] STAPHYLOCOCCUS AUREUS Atul (MRSA), LEILANI POC GLUCOSE 2022-03-10 22:58:00 Harinder, [facility] VANCOMYCIN LEVEL, RANDOM 2022-03-10 20:31:00 Bridgette Hernandez [facility] POC GLUCOSE 2022-03-10 17:46:00 Harinder, [facility] POC GLUCOSE 2022-03-10 13:57:00 Harinder, [facility] CBC WITH PLATELET AND 2022-03-10 09:15:00 Harinder [facility] DIFFERENTIAL COMPREHENSIVE METABOLIC 2022-03-10 09:15:00 Harinder [facility] PANEL MAGNESIUM LEVEL 2022-03-10 09:15:00 Harinder [facility] ESTIMATED GFR 2022-03-10 09:15:00 Harinder, [facility] POC GLUCOSE 2022-03-10 02:19:00 Harinder, [facility] POC GLUCOSE 2022-03-09 22:28:00 Harinder, [facility] METHICILLIN-RESISTANT 2022-03-09 18:20:00 Harinder, [facility] STAPHYLOCOCCUS AUREUS (MRSA), LEILANI POC GLUCOSE 2022-03-09 17:16:00 Harinder, [facility] POC GLUCOSE 2022-03-09 08:46:00 [facility] 2022-03-09 07:16:00 [facility] COVID-19 QUALITATIVE 2022-03-09 07:14:00 [facility] COMPREHENSIVE METABOLIC 2022-03-09 06:10:00 [facility] PANEL HEMOGLOBIN A1C 2022-03-09 06:10:00 Edgar Walden ospital [employer] LIPID PANEL 2022-03-09 06:10:00 Edgar aWlden [facility] XR FOOT 3+ VW LEFT 2022-03-09 05:56:37 [facility] BETA HYDROXYBUTYRATE 2022-03-09 05:43:00 [facility] CBC WITH PLATELET AND 2022-03-09 05:35:[address] [facility] DIFFERENTIAL LACTIC ACID LEVEL, SEPSIS 2022-03-09 05:35:00 Arnulfo Laxmi [facility] - NOW AND REPEAT 2X EVERY 3 HOURS VENOUS BLOOD GAS 2022-03-09 05:35:00 [facility] ESTIMATED GFR 2022-03-09 05:35:00 [facility] POC GLUCOSE 2022-03-09 03:55:00 Carroll, Yvonne [facility] POC GLUCOSE 2021-12-14 16:15:00 René De Jesus ospital Arnulfo POC GLUCOSE 2021-12-14 12:10:00 René De Jesus ospital Arnulfo POC GLUCOSE 2021-12-14 01:40:00 [facility] Arnulfo POC GLUCOSE 2021-12-13 21:17:00 René De Jesus ospital Arnulfo POC GLUCOSE 2021-12-13 16:05:00 René De Jesus ospital Arnulfo POC GLUCOSE 2021-12-13 12:22:00 René De Jesus ospital Arnulfo POC GLUCOSE 2021-12-13 01:36:00 René De Jesus ospital Arnulfo POC GLUCOSE 2021-12-12 22:00:00 René De Jesus ospital Arnulfo VENIPUNC NEED PHYS 2021-12-12 17:56:39 Trinh Christensen [facility] SKILL,DX OR RX POC GLUCOSE 2021-12-12 16:34:00 René De Jesus ospital Arnulfo POC GLUCOSE 2021-12-12 12:27:00 René De Jesus ospital Arnulfo BASIC METABOLIC PANEL 2021-12-12 10:55:00 René De Jesus [facility] CBC WITH PLATELET AND 2021-12-12 10:55:00 René De Jesus [facility] DIFFERENTIAL Arnulfo ESTIMATED GFR 2021-12-12 10:55:00 René De Jesus [facility] LEIGH-19 ANTI-SPIKE IGG 2021-12-12 10:54:00 Sae [facility] ANTIBODY TITER Harjinder HenaoZCOVID-19 SEROLOGY 2021-12-12 10:54:00 [facility] Harjinder POC GLUCOSE 2021-12-12 03:38:00 René De Jesus [facility] POC GLUCOSE 2021-12-12 01:22:00 René De Jesus [facility] POC GLUCOSE 2021-12-11 22:32:00 René De Jesus Yarsani [facility] POC GLUCOSE 2021-12-11 17:04:00 René De Jesus [facility] POC GLUCOSE 2021-12-11 13:53:00 [facility] POC GLUCOSE 2021-12-11 08:48:00 [facility] POC GLUCOSE 2021-12-11 07:29:00 [facility] POC GLUCOSE 2021-12-11 06:36:00 [facility] COVID-19 QUALITATIVE 2021-12-11 05:55:00 Wilberto Carbajal [facility] RT-PCR POC GLUCOSE 2021-12-11 05:34:00 Wilberto Carbajal [facility] CBC WITH PLATELET AND 2021-12-11 04:02:00 Wilberto Carbajal [facility] DIFFERENTIAL COMPREHENSIVE METABOLIC 2021-12-11 04:02:00 Wilberto Carbajal [facility] PANEL LIPASE LEVEL 2021-12-11 04:02:00 Wilberto Carbajal [facility] BETA HYDROXYBUTYRATE 2021-12-11 04:02:00 Wilberto Carbajal [facility] VENOUS BLOOD GAS 2021-12-11 04:02:00 Wilberto Carbajal [facility] ESTIMATED GFR 2021-12-11 04:02:00 Wilberto Carbajal [facility] CT ABDOMEN PELVIS WO 2021-12-11 02:47:59 Wilberto Carbajal [facility] CONTRAST URINE CULTURE 2021-12-11 02:24:00 Og Cleaning spital URINALYSIS SCREEN AND 2021-12-11 01:10:00 Wilberto Carbajal [facility] MICROSCOPY, WITH REFLEX TO CULTURE URINE CULTURE 2021-11-08 17:34:00 Thong Cartagena spital URINALYSIS SCREEN AND 2021-11-08 16:54:00 [facility] MICROSCOPY, WITH REFLEX TO CULTURE CT RENAL STONE PROTOCOL 2021-11-08 16:35:59 [facility] CBC WITH PLATELET AND 2021-11-08 16:05:00 [facility] DIFFERENTIAL BASIC METABOLIC PANEL 2021-11-08 16:05:00 [facility] LIPASE LEVEL 2021-11-08 16:05:00 [facility] HEPATIC FUNCTION PANEL 2021-11-08 16:05:00 [facility] ESTIMATED GFR 2021-11-08 16:05:00 Thong Cartagena spital POC GLUCOSE 2021-11-08 15:52:00 [facility] ED PRELIMINARY 2021-10-11 04:49:00 [facility]-LEAD 2021-10-11 03:14:[address] [facility] WITH PLATELET AND 2021-10-11 02:57:00 Norberto Lanier [facility] DIFFERENTIAL COMPREHENSIVE METABOLIC 2021-10-11 02:57:00 Yannick [facility] PANEL TROPONIN T 2021-10-11 02:57:[address] [facility] B NATRIURETIC PEPTIDE 2021-10-11 02:57:00 Yannick [facility] PROTHROMBIN TIME WITH INR 2021-10-11 02:57:00 Norberto Lanier [facility] PARTIAL THROMBOPLASTIN 2021-10-11 02:57:00 Norberto Lanier [facility] TIME (PTT) ESTIMATED GFR 2021-10-11 02:57:[address] [facility] 2 VW 2021-10-11 02:05:[address] [facility] DIABETIC FOOT EXAMINATION 2021-06-29 00:00:00 GarciaVirgilio [id number]. (2028F) 2 MOST RECENT DIASTOLIC 2021-06-29 00:00:00 Garcia, Branch 2.16.8 40.1.098241.4. BLOOD PRESSURE 80-89 MM 2 HG (HTN, CKD, CAD) (DM) (3079F) MOST RECENT SYSTOLIC 2021-06-29 00:00:00 Garcia, Branch 2.16.84 0.1.488239.4. BLOOD PRESSURE 130-139 MM 2 HG (DM),(HTN, CKD, CAD) (3075F) NEGATIVE SCREEN FOR 2021-06-29 00:00:00 Garcia Branch 2.16.840 .1.560002.4. CLINICAL DEPRESSION, 2 FOLLOW-UP NOT REQUIRED (G8510) PATIENT IDENTIFIED A 2021-06-29 00:00:00 Garcia, Branch 2.16 .840.1.683242.4. TOBACCO USER RECEIVED 2 TOBACCO CESSATION INTERVENTION (COUNSELING AND/OR PHARMACOTHERAPY) (G9906) SCREENING FOR TOBACCO USE 2021-06-29 00:00:00 Virgilio Garcia 2.16.840.1.233245.4. (4004F) 2 PATIENT SCREENED FOR 2021-06-29 00:00:00 Jose Branch 2.16.84 [id number]. TOBACCO USE AND 2 IDENTIFIED A TOBACCO USER (G9902) XRAY FOOT 3 VIEWS - 2021-02-02 15:18:00 Jamin Lopez [facility] ROUTINE CBC/DIFF 2021-02-02 15:12:00 Jamin Lopez alth BASIC METABOLIC PANEL 2021-02-02 15:12:[address] [facility] CBC 2021-02-02 15:12:00 Jamin Lopez alth URINE CULTURE 2021-01-03 04:26:00 [facility] AND 2021-01-03 04:26:00 [facility] MICROSCOPY, WITH REFLEX Richard TO CULTURE LACTIC ACID LEVEL, SEPSIS 2021-01-03 03:04:00 [facility] NOW AND REPEAT 2X EVERY [place] 3 HOURS TROPONIN 2021-01-03 03:04:00 [facility] US DUPLEX VENOUS LOWER 2021-01-03 01:53:13 [facility] EXTREMITY RIGHT Richard ECG ED PRELIMINARY 2021-01-03 01:17:47 [facility] INTERPRETATION Richard XR TIBIA FIBULA 2 VW 2021-01-03 01:05:31 [facility] RIGHT Richard XR FOOT 3+ VW LEFT 2021-01-03 01:05:05 [facility] Richard ECG 12-LEAD 2021-01-03 00:52:38 [facility] Richard BLOOD CULTURE, AEROBIC & 2021-01-03 00:47:00 [facility] ANAEROBIC Richard BLOOD CULTURE, AEROBIC & 2021-01-03 00:45:00 [facility] ANAEROBIC [place] HC COMPLETE BLD COUNT 2021-01-03 00:43:00 [facility] W/AUTO DIFF Richard BASIC METABOLIC PANEL 2021-01-03 00:43:00 [facility] Richard HEPATIC FUNCTION PANEL 2021-01-03 00:43:00 [facility] Richard LACTIC ACID LEVEL, SEPSIS 2021-01-03 00:43:00 [facility] - NOW AND REPEAT 2X EVERY Richard 3 HOURS LIPASE LEVEL 2021-01-03 00:43:00 [facility] Richard TROPONIN 2021-01-03 00:43:00 [facility] B NATRIURETIC PEPTIDE 2021-01-03 00:43:00 [facility] ESTIMATED GFR 2021-01-03 00:43:00 [facility] Richard Amputation 2020-08-04 00:00:00 [facility] 2.16.840.1.1 99839.4. 2 [id number] 2020-07-04 00:00:00 DAVJO.04 [facility] [id number] 2020-07-04 00:00:00 DAVJO.04 [facility] [id number] 2020-07-04 00:00:00 DAVJO.04 [facility] [id number] 2020-07-04 00:00:00 DAVJO.04 [facility] [id number] 2020-07-04 00:00:00 DAVJO.04 [facility] [id number] 2020-07-04 00:00:00 DAVJO.04 [facility] [id number] 2020-07-04 00:00:00 DAVJO.04 [facility] [id number] 2020-07-04 00:00:00 DAVJO.04 [facility] [id number] 2020-07-01 00:00:00 JARKE [facility] [id number] 2020-07-01 00:00:00 COLLEENKE [facility] [id number] 2020-07-01 [id number] 2020-07-01 00:00:00 [facility] Annual Eye Exam - FOR [facility] 2.16.840.1 .512500.4. NON-DIABETICS ONLY 2 COLONOSCOPY IN ADULT [facility] 2.16.840.1. 290585.4. (92191) 2 Patient received annual [facility] 2.16.840 .1.477807.4. dental check-up 2 Teeth [facility] 2.16.840.1.02283 3.4. 2 Plan of Care Planned Activity [...] Influenza Seasonal (>/= 19 yrs)] Future Scheduled 2022-10-10 Screening [facility] Test 14:06:50 malignant neoplasm of colon (procedure) [code = 676155697] Future Scheduled 2022-10-10 [facility] Test 14:06:50 malignant neoplasm of colon (procedure) [code = 638440237] Future Scheduled 2022-10-10 [facility] Test 14:06:50 malignant neoplasm of colon (procedure) [code = 342223513] Future Scheduled 2022-10-10 COVID-19 VACCINE (#1) [facility] Test 14:06:50 [code = COVID-19 VACCINE (#1)] Future Scheduled 2022-10-10 DIABETES: RETINAL EYE Me [facility] Test 14:06:50 EXAM [code = DIABETES: RETINAL EYE EXAM] Future Scheduled 2022-10-10 [facility]ETIC FOOT [facility]AM [facility] Test 14:06:50 [code = DIABETIC FOOT EXAM] Future Scheduled 2022-10-10 [facility]INE [facility]ALBUMIN [facility] Test 14:06:50 [code = URINE MICROALBUMIN] Future Scheduled 2022-10-10 Hepatitis C screening [facility] Test 14:06:50 (procedure) [code = 767984271] Future Scheduled 2022-10-10 [facility] Test 14:06:50 malignant neoplasm of colon (procedure) [code = 769679006] Future Scheduled 2022-10-10 [facility] Test 14:06:50 malignant neoplasm of colon (procedure) [code = 135757404] Future Scheduled 2022-10-10 [facility] Test 14:06:50 malignant neoplasm of lung (procedure) [code = 290282424] Future Scheduled 2022-10-10 [facility]ING[facility]IN[facility] ([facility] 14:06:50 of 2) [code = SHINGLES VACCINES (1 of 2)] Future Scheduled 2022-10-10 INFLUENZA VACCINE [facility] Test 14:06:50 [code = INFLUENZA VACCINE] Future Scheduled 2022-09-26 [facility] Test 01:58:19 malignant neoplasm of colon (procedure) [code = 872205160] Future Scheduled 2022-09-26 [facility] Test 01:58:19 malignant neoplasm of colon (procedure) [code = 914859896] Future Scheduled 2022-09-26 [facility] Test 01:58:19 malignant neoplasm of colon (procedure) [code = 591799238] Future Scheduled 2022-09-26 COVID-19 VACCINE (#1) [facility] Test 01:58:19 [code = COVID-19 VACCINE (#1)] Future Scheduled 2022-09-26 DIABETES: RETINAL EYE [facility] Test 01:58:19 EXAM [code = DIABETES: RETINAL EYE EXAM] Future Scheduled 2022-09-26 DIABETIC FOOT EXAM [facility] Test 01:58:19 [code = DIABETIC FOOT EXAM] Future Scheduled 2022-09-26 URINE MICROALBUMIN [facility] Test 01:58:19 [code = URINE MICROALBUMIN] Future Scheduled 2022-09-26 Hepatitis C screening [facility] Test 01:58:19 (procedure) [code = 490717595] Future Scheduled 2022-09-26 [facility] Test 01:58:19 malignant neoplasm of colon (procedure) [code = 530198427] Future Scheduled 2022-09-26 [facility] Test 01:58:19 malignant neoplasm of colon (procedure) [code = 283123868] Future Scheduled 2022-09-26 [facility] Test 01:58:19 malignant neoplasm of lung (procedure) [code = 675231757] Future Scheduled 2022-09-26 SHINGLES VACCINES (1 Met [facility] Test 01:58:19 of 2) [code = SHINGLES VACCINES (1 of 2)] Future Scheduled 2022-09-26 INFLUENZA VACCINE [facility] Test 01:58:19 [code = INFLUENZA VACCINE] Future Scheduled 2022-09-19 COVID-19 VACCINE (#1) [facility] Test 11:07:21 [code = COVID-19 VACCINE (#1)] Future Scheduled 2022-09-19 DIABETES: RETINAL EYE [facility] Test 11:07:21 EXAM [code = DIABETES: RETINAL EYE EXAM] Future Scheduled 2022-09-19 DIABETIC FOOT EXAM [facility] Test 11:07:21 [code = DIABETIC FOOT EXAM] Future Scheduled 2022-09-19 [facility]INE [facility]ALBUMIN [facility] Test 11:07:21 [code = URINE MICROALBUMIN] Future Scheduled 2022-09-19 Hepatitis C screening [facility] Test 11:07:21 (procedure) [code = 579021283] Future Scheduled 2022-09-19 Screening for [facility] Test 11:07:21 malignant neoplasm of colon (procedure) [code = 594320500] Future Scheduled 2022-09-19 [facility] Test 11:07:21 malignant neoplasm of lung (procedure) [code = 706975628] Future Scheduled 2022-09-19 SHINGLES VACCINES (1 Met [facility] Test 11:07:21 of 2) [code = SHINGLES VACCINES (1 of 2)] Future Scheduled 2022-09-19 INFLUENZA VACCINE [facility] Test 11:07:21 [code = INFLUENZA VACCINE] Future Scheduled 2022-08-19 COVID-19 VACCINE (#1) [facility] Test 10:24:38 [code = COVID-19 VACCINE (#1)] Future Scheduled 2022-08-19 DIABETES: RETINAL EYE [facility] Test 10:24:38 EXAM [code = DIABETES: RETINAL EYE EXAM] Future Scheduled 2022-08-19 DIABETIC FOOT EXAM [facility] Test 10:24:38 [code = DIABETIC FOOT EXAM] Future Scheduled 2022-08-19 [facility]ALBUMIN [facility] Test 10:24:38 [code = URINE MICROALBUMIN] Future Scheduled 2022-08-19 Hepatitis C screening [facility] Test 10:24:38 (procedure) [code = 089379774] Future Scheduled 2022-08-19 COLONOSCOPY SCREENING [facility] Test 10:24:38 [code = COLONOSCOPY SCREENING] Future Scheduled 2022-08-19 [facility] Test 10:24:38 malignant neoplasm of lung (procedure) [code = 355436385] Future Scheduled 2022-08-19 SHINGLES VACCINES (1 Met [facility] Test 10:24:38 of 2) [code = SHINGLES VACCINES (1 of 2)] Future Scheduled 2022-08-19 INFLUENZA VACCINE [facility] Test 10:24:38 [code = INFLUENZA VACCINE] Future Scheduled 2022-08-19 COVID-19 VACCINE (#1) [facility] 10:24:38 [code = COVID-19 VACCINE (#1)] Future Scheduled 2022-08-19 [facility] 10:24:38 EXAM [code = DIABETES: RETINAL EYE EXAM] Future Scheduled 2022-08-19 DIABETIC FOOT EXAM [facility] Test 10:24:38 [code = DIABETIC FOOT EXAM] Future Scheduled 2022-08-19 UR[facility]ALBUMIN [facility] Test 10:24:38 [code = URINE MICROALBUMIN] Future Scheduled 2022-08-19 Hepatitis C screening [facility] Test 10:24:38 (procedure) [code = 732771734] Future Scheduled 2022-08-19 COLONOSCOPY SCREENING [facility] Test 10:24:38 [code = COLONOSCOPY SCREENING] Future Scheduled 2022-08-19 [facility] Test 10:24:38 malignant neoplasm of lung (procedure) [code = 210975686] Future Scheduled 2022-08-19 SHINGLES VACCINES (1 Met [facility] Test 10:24:38 of 2) [code = SHINGLES VACCINES (1 of 2)] Future Scheduled 2022-08-19 INFLUENZA VACCINE [facility] Test 10:24:38 [code = INFLUENZA VACCINE] Future Scheduled 2022-08-19 COVID-19 VACCINE (#1) [facility] Test 10:24:38 [code = COVID-19 VACCINE (#1)] Future Scheduled 2022-08-19 DIABETES: RETINAL EYE [facility] Test 10:24:38 EXAM [code = DIABETES: RETINAL EYE EXAM] Future Scheduled 2022-08-19 DIABETIC FOOT EXAM [facility] Test 10:24:38 [code = DIABETIC FOOT EXAM] Future Scheduled 2022-08-19 URINE [facility]ALBUMIN [facility] Test 10:24:38 [code = URINE MICROALBUMIN] Future Scheduled 2022-08-19 Hepatitis C screening [facility] Test 10:24:38 (procedure) [code = 524658508] Future Scheduled 2022-08-19 COLONOSCOPY SCREENING [facility] Test 10:24:38 [code = COLONOSCOPY SCREENING] Future Scheduled 2022-08-19 [facility] Test 10:24:38 malignant neoplasm of lung (procedure) [code = 741195622] Future Scheduled 2022-08-19 SHINGLES VACCINES (1 Met [facility] Test 10:24:38 of 2) [code = SHINGLES VACCINES (1 of 2)] Future Scheduled 2022-08-19 INFLUENZA VACCINE [facility] Test 10:24:38 [code = INFLUENZA VACCINE] Future Scheduled 2022-08-19 COVID-19 VACCINE (#1) [facility] Test 10:24:38 [code = COVID-19 VACCINE (#1)] Future Scheduled 2022-08-19 DIABETES: RETINAL EYE Me [facility] Test 10:24:38 EXAM [code = DIABETES: RETINAL EYE EXAM] Future Scheduled 2022-08-19 DIABETIC FOOT EXAM [facility] Test 10:24:38 [code = DIABETIC FOOT EXAM] Future Scheduled 2022-08-19 URINE [facility]ALBUMIN [facility] Test 10:24:38 [code = URINE MICROALBUMIN] Future Scheduled 2022-08-19 Hepatitis C screening [facility] Test 10:24:38 (procedure) [code = 938683298] Future Scheduled 2022-08-19 COLONOSCOPY SCREENING [facility] Test 10:24:38 [code = COLONOSCOPY SCREENING] Future Scheduled 2022-08-19 [facility] Test 10:24:38 malignant neoplasm of lung (procedure) [code = 924680822] Future Scheduled 2022-08-19 SHINGLES VACCINES (1 Met [facility] Test 10:24:38 of 2) [code = SHINGLES VACCINES (1 of 2)] Future Scheduled 2022-08-19 INFLUENZA VACCINE [facility] Test 10:24:38 [code = INFLUENZA VACCINE] Future Scheduled 2022-01-19 IMM [facility]enza [facility]al [facility] 00:00:00 (>/= 19 yrs) [code = IMM Influenza Seasonal (>/= 19 yrs)] Future Scheduled 2022-01-19 IMM Influenza Seasonal [facility] Test 00:00:00 (>/= 19 yrs) [code = IMM Influenza Seasonal (>/= 19 yrs)] Future Scheduled 2021-12-17 HEPATITIS B VACCINES [facility] Test 10:00:08 (1 of 3 - 3-dose series) [code = HEPATITIS B VACCINES (1 of 3 - 3-dose series)] Future Scheduled 2021-12-17 COVID-19 VACCINE (#1) [facility] Test 10:00:08 [code = COVID-19 VACCINE (#1)] Future Scheduled 2021-12-17 Pneumococcal Vaccine: [facility] Test 10:00:08 Pediatrics (0 to 5 Years) and At-Risk Patients (6 to 64 Years) (1 - PCV) [code = Pneumococcal Vaccine: Pediatrics (0 to 5 Years) and At-Risk Patients (6 to 64 Years) (1 - PCV)] Future Scheduled 2021-12-17 Hepatitis C screening [facility] Test 10:00:08 (procedure) [code = 835136591] Future Scheduled 2021-12-17 COLONOSCOPY SCREENING [facility] Test 10:00:08 [code = COLONOSCOPY SCREENING] Future Scheduled 2021-12-17 SHINGLES VACCINES (1 Met [facility] Test 10:00:08 of 2) [code = SHINGLES VACCINES (1 of 2)] Future Scheduled 2021-12-17 INFLUENZA VACCINE Method [facility] Test 10:00:08 [code = INFLUENZA VACCINE] Future Scheduled 2021-12-17 HEPATITIS B VACCINES [facility] Test 10:00:08 (1 of 3 - 3-dose series) [code = HEPATITIS B VACCINES (1 of 3 - 3-dose series)] Future Scheduled 2021-12-17 COVID-19 VACCINE (#1) [facility] Test 10:00:08 [code = COVID-19 VACCINE (#1)] Future Scheduled 2021-12-17 Pneumococcal Vaccine: [facility] Test 10:00:08 Pediatrics (0 to 5 Years) and At-Risk Patients (6 to 64 Years) (1 - PCV) [code = Pneumococcal Vaccine: Pediatrics (0 to 5 Years) and At-Risk Patients (6 to 64 Years) (1 - PCV)] Future Scheduled 2021-12-17 Hepatitis C screening [facility] Test 10:00:08 (procedure) [code = 582024884] Future Scheduled 2021-12-17 COLONOSCOPY SCREENING [facility] Test 10:00:08 [code = COLONOSCOPY SCREENING] Future Scheduled 2021-12-17 SHINGLES VACCINES (1 Met [facility] Test 10:00:08 of 2) [code = SHINGLES VACCINES (1 of 2)] Future Scheduled 2021-12-17 INFLUENZA VACCINE [facility] Test 10:00:08 [code = INFLUENZA VACCINE] Diagnostic Test 2021-06-29 HEMOGLOBIN GLYCLATED Pending 14:06:03 (HGB A1C) (28728) [code = 84730] Diagnostic Test 2021-06-29 CBC & PLATELETS (AUTO) Pending 14:05:14 (11834) [code = 34869] Diagnostic Test 2021-06-29 MICROALBUMIN/CREAT. Pending 13:35:45 RATIO WITH CREATININE (ALONDRA URINE) (42807) [code = 03786] Diagnostic Test 2021-06-29 LIPID PANEL (59199) Pending 13:35:39 [code = 90229] Diagnostic Test 2021-06-29 COMPREHENSIVE Pending 13:35:39 METABOLIC PANEL (49987) [code = 59308] Future Scheduled 2017 [facility] Test 00:00:00 malignant neoplasm of colon (procedure) [code = 421074694] Future Scheduled 2017 [facility] Test 00:00:00 malignant neoplasm of colon (procedure) [code = 971391054] Future Scheduled 2017 [facility] Test 00:00:00 malignant neoplasm of colon (procedure) [code = 469976421] Future Scheduled 2017 [facility] Test 00:00:00 malignant neoplasm of colon (procedure) [code = 042897829] Future Scheduled 2017 [facility] Test 00:00:00 malignant neoplasm of colon (procedure) [code = 273305765] Future Scheduled 2017 [facility] Test 00:00:00 malignant neoplasm of colon (procedure) [code = 958242831] Future Scheduled 2017 [facility] Test 00:00:00 malignant neoplasm of colon (procedure) [code = 952225457] Future Scheduled 2017 [facility] Test 00:00:00 malignant neoplasm of colon (procedure) [code = 075561233] Future Scheduled 1985 Diabetic foot [facility] Test 00:00:00 examination (regime/therapy) [code = 963926374] Future Scheduled 1985 [facility] Test 00:00:00 protein (procedure) [code = 927493833] Future Scheduled 1985 DM Retinal Exam [facility] 00:00:00 (Yearly) [code = DM Retinal Exam (Yearly)] Future Scheduled 1985 DM Foot Exam (Yearly) [facility] Test 00:00:00 [code = DM Foot Exam (Yearly)] Future Scheduled 1985 [facility] Test 00:00:00 protein (procedure) [code = 919425244] Future Scheduled 1985 DM [facility] Test 00:00:00 (Yearly) [code = DM Retinal Exam (Yearly)] Future Scheduled 1985 DM Foot Exam (Yearly) [facility] Test 00:00:00 [code = DM Foot Exam (Yearly)] Future Scheduled 1985 [facility] Test 00:00:00 protein (procedure) [code = 767084663] Future Scheduled 1985 DM [facility] Test 00:00:00 (Yearly) [code = DM Retinal Exam (Yearly)] Future Scheduled 1985 [facility] Test 00:00:00 examination (regime/therapy) [code = 110339573] Future Scheduled 1985 [facility] Test 00:00:00 protein (procedure) [code = 690609997] Future Scheduled 1985 DM [facility] Test 00:00:00 (Yearly) [code = DM Retinal Exam (Yearly)] Future Scheduled 1985 [facility] Test 00:00:00 examination (regime/therapy) [code = 445066393] Future Scheduled 1985 [facility] Test 00:00:00 protein (procedure) [code = 265073657] Future Scheduled 1985 DM [facility] Test 00:00:00 (Yearly) [code = DM Retinal Exam (Yearly)] Future Scheduled 1985 [facility] Test 00:00:00 examination (regime/therapy) [code = 784408886] Future Scheduled 1985 [facility] Test 00:00:00 protein (procedure) [code = 694537278] Future Scheduled 1985 DM [facility] 00:00:00 (Yearly) [code = DM Retinal Exam (Yearly)] Future Scheduled 1985 [facility] Test 00:00:00 examination (regime/therapy) [code = 796203439] Future Scheduled 1985 U[facility] Test 00:00:00 protein (procedure) [code = 523176836] Future Scheduled 1985 DM [facility] 00:00:00 (Yearly) [code = DM Retinal Exam (Yearly)] Future Scheduled 1985 [facility] Test 00:00:00 examination (regime/therapy) [code = 352171479] Future Scheduled 1985 [facility] Test 00:00:00 protein (procedure) [code = 381256283] Future Scheduled 1985 DM Retinal Exam [facility] Test 00:00:00 measurement (procedure) [code = 45364386] Future Scheduled 1967 Fluoride Varnish [facility]code [facility] 00:00:00 = Fluoride Varnish] Future Scheduled 1967 Hem[facility] A1c [facility] 00:00:00 measurement (procedure) [code = 93552762] Future Scheduled 1967 Fluoride Varnish [[facility] 00:00:00 = Fluoride Varnish] Future Scheduled 1967 Hemoglobin A1c [facility] 00:00:00 measurement (procedure) [code = 63087164] Future Scheduled 1967 [facility]oglobin A1c [facility] Test 00:00:00 measurement (procedure) [code = 23843374] Future Scheduled 1967 [facility]oglobin A1c [facility] Test 00:00:00 measurement (procedure) [code = 46657554] Future Scheduled 1967 [facility]oglobin A1c [facility] Test 00:00:00 measurement (procedure) [code = 31054782] Future Scheduled 1967 Hemoglobin A1c [facility] Test 00:00:00 measurement (procedure) [code = 44832124] Future Scheduled 1967 Hemoglobin A1c [facility] Test 00:00:00 measurement (procedure) [code = 79281310] Encounters Start End Encounter Admission Attending Care Care Encounter Source Date/Time Date/Time Type Type Clinicians Facility Department ID 2022-10-14 Outpatient [id number] [facility] 00:41:12 [id number] B3-4Q7I-91M BB3-4D6D- 9 l -79B7-733 [id number] 5I1-888FB3 Guille [id number] CBB [id number] 2022-09-26 Outpatient [id number] 8BAA 2C28-B [facility] 22:55:52 BDD8-45A9 D8-08R3-J43 DD8-45A9- A l -Z77G-637 C-4395Y4B2E 65C-0738A6 Guille [id number] 9CA [id number] 2022-09-23 Outpatient [id number] [id number] [facility] 15:40:06 23V1-3147 D4-4114-817 9H0-0332- 8 l -8170-0E7 [id number] 170-2Y3503 Guille [id number] 1C5 7F51C5 2022-09-18 Outpatient [id number] B36D ED90-5 [facility] 10:27:41 541D-469D 1D-469D-BD0 41D-469D- B l -DI89-92I 8-89V2XN659 W93-98H9YD Guille [id number] [id number] [id number] 2022-09-05 Outpatient [id number] 5DA0-4 [facility] 19:47:40 4550-4F68 50-5A77-2LA 550-4F68- 9 l -4NM1-M52 8-V580H6GA6 EF8-C365D8 Guille [id number] C31 EA8C31 2022-08-22 Outpatient [id number] [id number] [id number] D3FD-E [facility] 13:17:42 EEDC-4D67 DC-4C54-H6G EDC-4D67- B l -O8O0-DV6 [id number] [id number]-GJ8247 Guille [id number] 6610-05-01 [facility] [id number] [id number] 2664 7F96-A [facility] 10:26:06 U2M4-1H06 D0-2R48-PY8 2A4-2I21- B l -GT3V-J75 D-A80W772K9 J0L-M65L62 Guille [id number] 2022-07-01 Outpatient [id number] [id number] 52CB 02A8-1 [facility] 18:22:57 8R86-8X3N 86-0O0B-X1E Q88-6P3I- A l -M3KG-109 F-202N702KS 7DF-972C65 Guille [id number] 841 [id number] 2022-06-25 Outpatient [id number] C555 AD3A-6 [facility] 13:13:28 6801-408F 01-408F-9CD 801-408F- 9 l -6UI1-8Q3 5-1S35F1827 CD5-9B11D0 Guille [id number] CAF 333CAF 2022-06-21 Outpatient [id number] 01CA-8 [facility] 16:24:21 8273-427F 73-427F-927 273-427F- 9 l -9279-910 [id number] Guille [id number] 00D 8DD00D 2022-05-10 Outpatient [id number] [id number]-G4 2E9D D710-A [facility] 06:40:42 Y60V-86C6 5F-16X2-01S 65F-48A2- 9 l -36L8-8W1 9-4N860UYTQ 6G9-2F882Y Guille 18YATW418 329 CEY798 2022-05-08 Outpatient TKC0FPZ4- WFU2FBP9-89 BEF6 CBA3-5 [facility] 15:37:53 503B-4880 3B-4880-9B6 03B-4880- 9 l -1L7B-4SP [id number] Y0M-4XOH68 [facility] [id number] C18 [id number] 2022-04-19 Outpatient 2FII9P3G- 0YVW7Z7K-79 1BBB 5C0D-8 [facility] 13:59:31 92Y5-8511 F1-4973-998 7R7-6418- 9 l -998B-F76 B-L28021631 98B-N92938 Guille [id number] 327 876298 1251-12-28 Outpatient 29IYE51P- 24LOO05Z-NG 79BE F91E-D Memoria 13:31:43 DAD3-4873 D3-4873-877 AD3-4873- 8 l -8771-2E6 1-7K1W296Y0 771-2E6E91 Guille [id number] 342 8O2327 2022-04-13 Outpatient 5090W9R8- 8981U4O3-77 4505 A0B3-1 Memoria 15:36:01 15FB-4C6B FB-4H1J-I71 5FB-4C6B- A l -T64O-Z58 B-I32V7V327 59B-D42D0C Guille D9D592V2X A6F 833A6F 2022-04-12 Outpatient 48U3ECO7- 90W5ONF7-4D 06B9 BCB5-0 Memoria 15:30:39 7Y35-9AJ7 07-0CL6-283 N49-6YB8- 9 l -9202-AD6 2-MR99N00PA 202-AD61D6 Guille 3U68YHA42 A84 7EAA84 2022-03-11 Outpatient 975Y0QK0- 013I2GU4-64 938D 5EE5-8 Memoria 19:30:21 857A-4A82 7A-5Z44-G5H 57A-4A82- B l -C7M0-2B1 5-0V45788CO 6U6-6S0783 Guille 6338EN206 155 0NQ477 2022-03-08 Outpatient [id number]- 1D990807-88 3A45 0898-9 Memoria 21:44:29 9339-4C22 39-1X61-Y83 339-4C22- A l -O65B-70T E-44A89YNMK 45E-85D07A Guille 66FORJ591 545 PFD774 2022-01-04 Outpatient 4EZV2CDC- 6IBZ3ITI-5S 9DDA 6CAA-4 Memoria 07:00:32 8B98-0578 77-4012-BA3 J35-9365- B l -PQ61-O27 9-L16JFMCA1 J41-M24CEF Guille KXMJW4WL0 CD2 AD3CD2 2021-12-31 Outpatient 442180K1- 781195F2-N6 3447 38E1-B Memoria 12:10:15 R2X2-616F E1-485D-91D 9P8-840Q- 9 l -98X4-S48 2-R27041336 4G7-K98510 Guille 892243HC2 AC5 327AC5 2021-10-07 Inpatient Roa, HCABM HCABM [id number] HCA 06:58:00 Jerry [id number] [facility] 2021-07-14 Outpatient [facility] OF [facility] [id number] Lone 04:59:20 [id number] [facility] 2021-06-28 Outpatient [facility] ON [facility] OF [facility] [id number] Lone 15:37:52 [id number] [facility] 2021-06-15 Outpatient [facility] ON LICENSE OF [facility] [id number] Lone 11:20:44 [id number] [facility] 2021-03-30 Outpatient 8195GD73- 3505UR14-3Z 9110 FB25-7 Memoria 23:09:22 2W20-361O 85-469A-9A5 X83-217P- 9 l -5W6U-F60 B-U8117N372 Q4Q-Q2399D Guille 37B366X02 B38 918B38 2020-06-30 Inpatient HCAKW HCAKW [id number] H[facility] 09:04:59 17 [facility] 2020-02-27 Inpatient HCACR AMA [id number] [facility] 13:37:00 01 [facility] 2019-10-08 Inpatient HCABM NCER [id number] HCA 12:23:00 18 [facility] 2022-12-03 2022-12-03 Outpatient Karol FARNSWORTH [facility] [id number] [facility]:00[facility]00 08[facility]00[facility]22-11-06 Outpatient R RAMÓN KRAFT [facility] [id number] Univers 13:30:00 13:30:00 ANAMARIA KRAFTLEDYAMINA [facility] 2022-10-11 2022-10-11 Outpatient R LEIA [facility] [id number] Univers 08:00:00 08:00:00 RUIQING [facility] 2022-09-25 2022-09-25 Orders Doctor GILBERT 1.2.840.114 [id number] Univers 00:00:00 00:00:00 Only Unassigned, BRANDEE 350.1.13.10 [facility] 4.2.7.2.686 Suhas as [phone] [address] 2022-09-20 2022-09-20 [facility] [id number] Univers 13:00:00 13:00:00 [facility] 2022-09-18 2022-09-18 Telephone [facility] 1.2.689.399 0229 85216 Univers 00:00:00 00:00:00 Alexandra CHAMBERS 350.1.13.10 i [place] [id number] Ct dical NAL 044 [facility] 2022-09-18 2022-09-18 Telephone [facility] 1.2.956.409 1398 92860 Univers 00:00:00 00:00:00 Alexandra CHAMBERS 350.1.13.10 i ty [place] [id number] Ct dical NAL 044 [facility] 2022-09-17 2022-09-17 [facility] 1.2.840.114 103 [id number] Univers 00:00:00 00:00:00 Jeni ANGLEHUNG 350.1.13.10 i ty [place] [id number] Ct dical NAL 204 [facility] 2022-09-13 2022-09-13 Outpatient R [facility] [id number] Univers 11:00:00 11:00:00 ity of [facility] 2022-09-13 2022-09-13 [facility] 1.2.840.114 103 [id number] Univers 00:00:00 00:00:00 Sloanecheryl CHAMBERS 350.1.13.10 ity [facility] [place] [id number] Ct dical NAL 044 [facility] 2022-09-13 2022-09-13 Telephone [facility] 1.2.840.114 103 [id number] Univers 00:00:00 00:00:00 Jeni CHAMBERS 350.1.13.10 i ty [place] [id number] Ct dical NAL 204 [facility] 2022-09-12 2022-09-12 Emergency [facility] 1.2.840.114 10 [id number] Univers 21:33:00 22:56:00 Hui CHAMBERS 350.1.13.10 ity [facility] [place] [id number] [facility] [address] 2022-09-12 2022-09-12 Hospital [facility] 1.2.840.114 [id number] 5725 Univers 15:07:02 21:32:00 Encounter Alexandra CHAMBERS 350.1.13.10 ity of [facility] [place] [id number] [facility] [address] 2022-09-12 2022-09-12 [facility] 2, Adc Lab [facility] 1.2.840.114 [id number] Univers 15:30:00 15:45:00 Visit Alexandra Finnegan 350.1.13.10 ity [facility] 4[place] [id number] Ct dical NAL 353 [facility] 2022-09-12 2022-09-12 [facility] [id number] Univers 13:30:00 14:26:44 ALEXANDRA espana [facility] 2022-09-12 2022-09-12 [facility] [id number] Univers 13:30:00 14:26:44 ALEXANDRA espana [facility] 2022-09-12 2022-09-12 Office [facility] 1.2.840.114 [id number] Univers 13:30:00 14:26:44 Visit Alexandra TRISH 350.1.13.10 i ty [place] [id number] Ct dical LUIS E [address] [place] [address] 2022-09-12 2022-09-12 Telephone [facility] 1.2.706.502 5607 13875 Univers 00:00:00 00:00:00 Alexandra TRISH 350.1.13.10 i ty [place] 4.2.7.[place] [id number] Ct dical LUIS E [address] [place] [address] 2022-09-12 2022-09-12 Telephone [facility] 1.2.300.925 2937 95674 Univers 00:00:00 00:00:00 Alexandra TRSIH 350.1.13.10 i ty [place] 4.2.7.2.[place] [id number] Ct henriknv NAL [address] [place] [address] 2022-09-11 2022-09-11 [facility]phone [facility] 1.2.840.114 103 [id number] Univers 00:00:00 00:00:00 Ramón CHAMBERS 350.1.13.10 ity of [place] 4.[place].2.[place] [id number] Ct dical NAL [address] [place] [address] 2022-09-10 2022-09-10 Outpatient R JULIANN [facility] [id number] Univers 10:30:00 11:36:35 JENI ity [facility] 2022-09-06 2022-09-06 [facility]phone [facility] 1.2.840.114 103 [id number] Univers 00:00:00 00:00:00 Ramón CHAMBERS 350.1.13.10 it[place] [id number] Ct dical NAL 044 [facility] 2022-09-06 2022-09-06 Telephone Nimo [facility] 1.2.840.114 103 [id number] Univers 00:00:00 00:00:00 Ogestevan CHAMBERS 350.1.13.10 it[place] of [place] [phone] Ct dical NAL 044 [facility] 2022-09-05 2022-09-05 Refill Nimo [facility] 1.2.840.114 [id number] Univers 00:00:00 00:00:00 Ramón CHAMBERS 350.1.13.10 it[place] of [place] [id number] Ct dical NAL 044 [facility] 2022-09-04 2022-09-04 Patient Bao [facility] 1.2.840.114 [id number] Univers 00:00:00 00:00:00 Outreach Mari CHAMBERS 350.1.13.10 it[place] [id number] Ct dical NAL 231 [facility] 2022-09-04 2022-09-04 Orders Doctor GILBERT 1.2.840.114 [id number] Univers 00:00:00 00:00:00 Only Unassigned, BRANDEE 350.1.13.10 ity of [employer] [facility] 4.2.7.2.686 Suhas as [phone] [address] 2022-09-02 2022-09-02 Telephone Nimo [facility] 1.2.840.114 103 [id number] Univers 00:00:00 00:00:00 Ramón CHAMBERS 350.1.13.10 it[place] [id number] Ct dical NAL 044 [facility] 2022-08-30 2022-08-30 Telephone Nimo [facility] 1.2.840.114 103 [id number] Univers 00:00:00 00:00:00 Ogechukwu [place] 350.1.13.10 ity of [place] [id number] Ct dical NAL 044 [facility] 2022-08-28 2022-08-28 Telephone [facility] 1.2.840.114 103 [id number] Univers 00:00:00 00:00:00 Ogechukwu [place] 350.1.13.10 ity of [place] [id number] Ct dical NAL 231 [facility] 2022-08-27 2022-08-27 Telephone [facility] 1.2.840.114 103 [id number] Univers 00:00:00 00:00:00 Ogechukwu [place] 350.1.13.10 ity of [place] 4.2.7.2.[place] [phone] Ct dical NAL 044 [facility] 2022-08-27 2022-08-27 [facility] 1.2.840.114 103 [id number] Univers 00:00:00 00:00:00 Ogechukwu [place] 350.1.13.10 ity of [place] 4.2.7.2.[place] [id number] Ct dical NAL 044 [facility] 2022-08-26 2022-08-26 [facility] 1.2.840.114 103 [id number] Univers 00:00:00 00:00:00 Ogechukwu [place] 350.1.13.10 ity of [place] 4.2.7.2.[place] [id number] Ct dical NAL 044 [facility] 2022-08-21 2022-08-21 [facility] 1.2.927.253 5362 59969 Univers 00:00:00 00:00:00 Ogechukwu [place] 350.1.13.10 ity of [place] 4.2.7.2.[place] [id number] Ct dical NAL 044 [facility] 2022-08-19 2022-08-19 [facility]phone [facility] 1.2.840.114 102 [id number] Univers 00:00:00 00:00:00 Ramón CHAMBERS 350.1.13.10 it[place] of [place] [id number] [facility] 044 [facility] 2022-08-15 2022-08-15 Outpatient R RENEE [facility] [id number] Univers 15:40:00 15:40:00 LEIGHTON JEFFERSON it y [facility] 2022-08-14 2022-08-14 Emergency [facility] E[facility] [id number] Univers 00:06:00 03:01:00 LES y [facility] 2022-08-14 2022-08-14 [facility] 1.2.840.114 1 [id number] Univers 00:06:00 03:01:00 Les CHAMBERS 350.1.13.10 i ty [place] [id number] [facility] [address] 2022-08-08 2022-08-08 Outpatient R CIARA [facility] [id number] Univers 16:45:00 15:22:09 BLAS ity [facility] 2022-08-07 2022-08-07 Orders Doctor GILBERT 1.2.840.114 [id number] Univers 00:00:00 00:00:00 Only Unassigned, BRANDEE 350.1.13.10 ity of [employer] [facility] 4.2.7.2.686 Suhas as [phone] [facility] [address] 2022-08-07 2022-08-07 Telephone [facility] 1.2.840.114 102 [id number] Univers 00:00:00 00:00:00 Ramón CHABMERS 350.1.13.10 ity [place] [id number] [facility] 044 [facility] 2022-08-05 2022-08-05 Outpatient R RAMÓN KRAFT [facility] [id number] Univers 13:00:00 14:16:22 RAMÓN KRAFT ity of [facility] 2022-08-05 2022-08-05 Office Nimo [facility] 1.2.840.114 [id number] Univers 13:00:00 14:16:22 Visit Ramón CHAMBERS 350.1.13.10 it[place] of [place] [id number] Ct dicnv NAL [address] [place] [address] 2022-08-05 2022-08-05 Patient Bao [facility] 1.2.840.114 [id number] Univers 00:00:00 00:00:00 Outreach Mari CHAMBERS 350.1.13.10 it[place] [id number] [facility] NAL [address] [place] [address] 2022-08-02 2022-08-02 Orders Doctor GILBERT 1.2.840.114 [id number] Univers 00:00:00 00:00:00 Only Unassigned, BRANDEE 350.1.13.10 ity of [employer] HOSPITAL 4.2.7.2.686 Suhas as [id number] [facility] [address] 2022-08-02 2022-08-02 Telephone GILBERT Mcneal 1.2.840.114 10 [id number] Univers 00:00:00 00:00:00 Clare IRVIN 350.1.13.10 it y of HOSPITAL 4.2.7.2.686 [place]has as [id number] [facility] [address] 2022-08-01 2022-08-01 Transition TANI Snow 1.2.840.114 102 [id number] Univers 00:00:00 00:00:00 of Care Alex MORALES 350.1.13.10 [place] [id number] [facility] [address] 2022-08-01 2022-08-01 Telephone GILBERT Mcneal 1.2.840.114 10 [id number] Univers 00:00:00 00:00:00 Clare IRVIN 350.1.13.10 it y of HOSPITAL 4.2.7.2.686 Suhas as [id number] [facility] [address] 2022-07-28 2022-07-31 Inpatient U GAEL [facility] EYAL [id number] Univers 01:36:00 19:14:00 MALIK itgrant [facility] 2022-07-28 2022-07-31 [facility] Brennan Love 1.2.840.114 [id number] Univers 01:36:00 19:14:00 Encounter Malik Mayo 350.1.13.10 ity [facility] 4.2.7.2.686 Suhas as [phone] [facility] [address] 2022-07-18 2022-07-19 [facility] 1.2.150.538 6382 63979 Univers 21:30:00 01:47:00 Adolfo MANCINIHUNG 350.1.13.10 ity [facility] 4.2.7.2.686 [facility] [phone] [facility] [address] 2022-07-18 2022-07-19 Emergency X [facility] ERT [id number] Univers 21:30:00 01:47:00 PHILLIPELLIS [facility] 2022-06-25 2022-07-03 [facility] 1.2.840.1 [id number] Methodi 10:52:00 03:00:00 Encounter Wilberto Joe 79019.1.[address] Naif [place] 3.430.2.7 H ospita .3.281538 l .8 2022-06-25 2022-07-03 [facility] 1.2.840.1 [id number] Methodi 10:52:00 03:00:00 Encounter Wilberto Joe 61739.1.[address] [place] [place] 3.430.2.7 H ospita .3.471518 l .8 2022-07-03 2022-07-03 Documentat Abrams, 1.2.840.1 [id number] 2 [id number] Methodi 00:00:00 00:00:00 ion Cheryle 28433.1.[address] 3.430.2.7 Hospit a .3.200730 l .8 2022-07-03 2022-07-03 Documentat Jose Alberto, 1.2.840.1 [id number] 2 [id number] Methodi 00:00:00 00:00:00 ion Cheryle 06354.1.[address] 3.430.2.7 Hospit a .3.652863 l .8 2022-06-26 2022-06-26 Surgery Nurko, 1.2.840.1 032270211 367995 9032 Methodi 16:50:00 18:20:[address] 3.430.2.7 Hospit a .3.596857 l .8 2022-06-26 2022-06-26 Surgery Nur, 1.2.840.1 291644954 655224 3236 Methodi 16:50:00 18:20:[address] 3.430.2.7 Hospit a .3.979328 l .8 2022-06-26 2022-06-26 Anesthesia [facility] 1.2.840.1 104 590337 [id number] Methodi 16:46:00 17:36:00 Event Thong Torres 47070.1.[address] 3.430.2.7 Hospit a .3.380556 l .8 2022-06-26 2022-06-26 Anesthesia [facility] 1.2.840.1 104 190888 [id number] Methodi 16:46:00 17:36:00 Event Thong Torres 41812.1.[address] 3.430.2.7 Hospit a .3.038749 l .8 2022-06-25 2022-06-25 Office [facility], 1.2.840.1 [id number] 451623 0237 Methodi 09:00:00 10:28:55 Visit Davin 86838.1.[address] 3.430.2.7 Hospit a .3.700687 l .8 2022-06-25 2022-06-25 Office Aaron, 1.2.840.1 [id number] 427037 8798 Methodi 09:00:00 10:28:55 Visit Davin 45904.1.[address] 3.430.2.7 Hospit a .3.777329 l .8 2022-06-25 2022-06-25 Travel 1.2.840.1 1.2.503.153 7804 055263 Methodi 00:00:00 00:00:[address] 3.430.2.7 0.2.7.3.698 Ho spita .3.400175 084.8 l .8 2022-06-25 2022-06-25 Travel 1.2.840.1 1.2.845.588 5764 211816 Methodi 00:00:00 00:00:[address] 3.430.2.7 0.2.7.3.698 Ho spita .3.116853 084.8 l .8 2022-06-21 2022-06-21 Office Davin Walker 1.2.840.1 [id number] Methodi 13:00:00 14:47:04 Visit Louisa Escobar 73120.1.[address] 3.430.2.7 Hospit a .3.613417 l .8 2022-06-21 2022-06-21 Office Davin Walker 1.2.840.1 [id number] Methodi 13:00:00 14:47:04 Visit Louisa Escobar 10846.1.[address] 3.430.2.7 Hospit a .3.867736 l .8 2022-06-21 2022-06-21 Travel 1.2.840.1 1.2.682.849 2786 873968 Methodi 00:00:00 00:00:[address] 3.430.2.7 0.2.7.3.698 Ho spita .3.046280 084.8 l .8 2022-06-21 2022-06-21 Travel 1.2.840.1 1.2.768.498 0010 941768 Methodi 00:00:00 00:00:[address] 3.430.2.7 0.2.7.3.698 Ho spita .3.430461 084.8 l .8 2022-06-14 2022-06-14 Office [facility], 1.2.840.1 [id number] 725266 3043 Methodi 13:10:00 13:23:28 Visit Davin 01944.1.[address] 3.430.2.7 Hospit a .3.011955 l .8 2022-06-14 2022-06-14 Office [facility], 1.2.840.1 [id number] 774358 7155 Methodi 13:10:00 13:23:28 Visit Davin 42071.1.[address] 3.430.2.7 Hospit a .3.270922 l .8 2022-06-14 2022-06-14 Travel 1.2.840.1 1.2.578.981 4185 577712 Methodi 00:00:00 00:00:[address] 3.430.2.7 0.2.7.3.698 Ho spita .3.035014 084.8 l .8 2022-06-14 2022-06-14 Travel 1.2.840.1 1.2.281.830 4875 461870 Methodi 00:00:00 00:00:[address] 3.430.2.7 0.2.7.3.698 Ho spita .3.818791 084.8 l .8 2022-05-24 2022-05-24 Office [facility], 1.2.840.1 [id number] 014036 2572 Methodi 14:00:00 14:54:06 Visit Davin 86477.1.[address] 3.430.2.7 Hospit a .3.368433 l .8 2022-05-24 2022-05-24 Office Aaron, 1.2.840.1 [id number] 298679 2980 Methodi 14:00:00 14:54:06 Visit Davin 27796.1.[address] 3.430.2.7 Hospit a .3.543932 l .8 2022-05-24 2022-05-24 Travel 1.2.840.1 1.2.997.145 7796 847881 Methodi 00:00:00 00:00:[address] 3.430.2.7 0.2.7.3.698 Ho spita .3.812497 084.8 l .8 2022-05-24 2022-05-24 Travel 1.2.840.1 1.2.554.313 5467 260781 Methodi 00:00:00 00:00:[address] 3.430.2.7 0.2.7.3.698 Ho spita .3.917325 084.8 l .8 2022-05-08 2022-05-14 [facility] 1.2.840.1 [id number] Methodi 11:57:00 14:24:00 Encounter Noman Brewer 98805.1.1 [facility] 3.430.2.7 Hospita .3.944309 l .8 2022-05-08 2022-05-14 [facility] 1.2.840.1 [id number] Methodi 11:57:00 14:24:00 Encounter Noman Brewer 81584.1.[address] HarinderRon el Ding 3.430.2.7 Hospita .3.095931 l .8 2022-05-14 2022-05-14 Documentat Paulo, 1.2.840.1 [id number] Methodi 00:00:00 00:00:00 ion Alyse 21149.1.[address] 3.430.2.7 Hospit a .3.648488 l .8 2022-05-14 2022-05-14 Documentat Paulo, 1.2.840.1 [id number] [id number] Methodi 00:00:00 00:00:00 ion Alyse 68942.1.[address] 3.430.2.7 Hospit a .3.384774 l .8 2022-05-10 2022-05-10 Surgery Nurko, 1.2.840.1 574586034 837312 6806 Methodi 11:00:00 13:05:[address] 3.430.2.7 Hospit a .3.837541 l .8 2022-05-10 2022-05-10 Surgery Nurko, 1.2.840.1 408652181 975980 9351 Methodi 11:00:00 13:05:[address] 3.430.2.7 Hospit a .3.908360 l .8 2022-05-10 2022-05-10 Anesthesia Beulah Barcenas 1.2.840.1 292152 023 [id number] Methodi 11:12:00 12:34:00 Event Mari Gamboa 93233.1.[address] 3.430.2.7 Hospit a .3.224604 l .8 2022-05-10 2022-05-10 Anesthesia Beulah Barcenas 1.2.840.1 396740 023 [id number] Methodi 11:12:00 12:34:00 Event Mari Gamboa 98056.1.[address] 3.430.2.7 Hospit a .3.061593 l .8 2022-04-24 2022-04-24 Patient Carroll, 1.2.840.1 825151086 10799 90374 Methodi 00:00:00 00:00:00 Outreach Cheri 73126.1.1 432 s t 3.430.2.7 Hospit a .3.120738 l .8 2022-04-24 2022-04-24 Patient Carroll, 1.2.840.1 [id number] 25304 Methodi 00:00:00 00:00:00 Outreach Cheri 09078.1.1 432 s t 3.430.2.7 Hospit a .3.126715 l .8 2022-04-12 2022-04-19 [facility] Fortino Feldman 1.2.840 .1 [id number] Methodi 15:27:00 19:06:00 Encounter Hector Orozco 62749.1.1 263 Fahad Mc Efren 3.430.2.7 [facility] Abiruchi .3.105164 l Nadimpalli, July .8 2022-04-12 2022-04-19 [facility] Fortino Feldman 1.2.840 .1 [id number] Methodi 15:27:00 19:06:00 Encounter Hector Orozco 10980.1.1 263 Fahad Mc Feren 3.430.2.7 [facility], Abid .3.412410 l Nadimpalli, July .8 2022-04-19 2022-04-19 Anesthesia Tu, 1.2.840.1 [id number] 189 [id number] Methodi 14:04:00 14:26:00 Event Jesus 25541.1.[address] Thi 3.430.2.7 Hospit a .3.290600 l .8 2022-04-19 2022-04-19 Anesthesia Tu, 1.2.840.1 908699146 284 1076923 Methodi 14:04:00 14:26:00 Event Ga-Vale 89702.1.[address] Thi 3.430.2.7 Hospit a .3.053770 l .8 2022-03-08 2022-03-14 [facility] Laxmi Arredondo 1.2.840.1 10 0718093 [id number] Methodi 22:25:00 20:26:00 Encounter [place] 41569.1.[address] HarinderRon 3.430.2.7 [facility] .[facility].960895 [facility] Noman Brewer .8 2022-03-08 2022-03-14 [facility] [id number] [id number] Methodi 22:25:00 20:26:00 Encounter Jeff Short Azul 79458.1.1 934 [facility], Rno Ding 3.430.2.7 [facility] Chacha Carbajal .3.379858 l Noman Brewer .8 2022-03-12 2022-03-12 Surgery Nurko, 1.2.840.1 [id number] 636450 4253 Methodi 14:03:00 15:48:[address] 3.430.2.7 Hospit a .3.961382 l .8 2022-03-12 2022-03-12 Surgery Nurko, 1.2.840.1 [id number] 006219 6339 Methodi 14:03:00 15:48:[address] 3.430.2.7 Hospit a .3.500905 l .8 2022-03-12 2022-03-12 Anesthesia Urrutia, 1.2.840.1 [id number] 245 8532226 Methodi 14:23:00 15:33:00 Event Mary Estevez 13943.1.[address] 3.430.2.7 Hospit a .3.077731 l .8 2022-03-12 2022-03-12 Anesthesia Urrutia, 1.2.840.1 867312003 635 9593978 Methodi 14:23:00 15:33:00 Event Mary Estevez 97734.1.[address] 3.430.2.7 Hospit a .3.773142 l .8 2022-03-08 2022-03-08 Travel 1.2.840.1 1.2.442.860 6938 842784 Methodi 00:00:00 00:00:[address] 3.430.2.7 0.2.7.3.698 Ho spita .3.372946 084.8 l .8 2022-03-08 2022-03-08 Travel 1.2.840.1 1.2.116.126 3326 044653 Methodi 00:00:00 00:00:[address] 3.430.2.7 0.2.7.3.698 Ho spita .3.611649 084.8 l .8 2022-01-01 2022-01-05 [facility] [id number] [facility] 16:59:00 12:20:00 Ab Doyle [facility] 2021-12-10 2021-12-14 [facility] Wilberto Carbajal 1.2.840.1 104 [id number] Methodi 21:52:00 15:50:00 Encounter Ale Farias Amod 27491.1.1 117 René Melendrez 3.430.2.7 Hospita .3.539589 l .8 2021-12-10 2021-12-14 [facility] Wilberto Carbajal 1.2.840.1 104 642327 [id number] Methodi 21:52:00 15:50:00 Encounter Ale Farias Amod 60714.1.[address] René De Jesus 3.430.2.7 Hospita .3.452409 l .8 2021-12-10 2021-12-10 Travel 1.2.840.1 1.2.069.361 5649 330545 Methodi 00:00:00 00:00:[address] 3.430.2.7 0.2.7.3.698 Ho spita .3.976799 084.8 l .8 2021-12-10 2021-12-10 Travel 1.2.840.1 1.2.193.972 4307 221441 Methodi 00:00:00 00:00:[address] 3.430.2.7 0.2.7.3.698 Ho spita .3.811279 084.8 l .8 2021-11-08 2021-11-08 Emergency Mitzi, 1.2.840.1 [id number] 2100 901628 Methodi 10:26:00 14:01:[address] 3.430.2.7 Hospit a .3.831410 l .8 2021-11-08 2021-11-08 Emergency Mitzi, 1.2.840.1 [id number] 2100 302823 Methodi 10:26:00 14:01:[address] 3.430.2.7 Hospit a .3.998249 l .8 2021-10-10 2021-10-10 Emergency Fahad Anna 1.2.840.1 [id number] Methodi 20:57:00 23:49:[address] 3.430.2.7 Hospit a .3.569919 l .8 2021-10-07 2021-10-07 Emergency EM Roa, [facility] [id number] [facility] 06:46:00 07:39:00 Jerry 58 [facility] 2021-09-30 2021-09-30 Emergency EM Nataly [facility] [id number] [facility] 18:18:00 19:46:00 Margo 39 [facility] 2021-08-15 2021-08-15 Outpatient GC_HGMDA_Go PRIV PRIV 110 [id number] [facility] 09:28:00 09:28:00 nzalez_J [id number] Medic al 2021-08-13 2021-08-13 Outpatient GC_HGMDA_Go PRIV PRIV 110 [id number] [facility] 12:25:00 12:25:00 nzalez_J [id number] Medic al 2021-08-06 2021-08-06 Emergency EM Cresencio [facility] [id number] [facility] 15:06:00 18:56:00 Brennan 32 [facility] 2021-07-18 2021-07-[address] [facility] [id number] 00:00:00 00:00:00 [facility] 2021-06-29 2021-06-29 Office 0 Viel[place] [id number] 13:30:00 16:29:55 Visit 06 2021-06-29 2021-06-29 Outpatient Berta Schwab, [facility] [id number] [place] 13:13:00 13:13:00 [facility] [id number] [facility] 2021-03-22 2021-03-22 Travel 1.2.840.1 [id number] Methodi 00:00:00 00:00:[address] 3.430.2.7 0.2.7.3.698 Ho spita .3.016915 084.8 l .8 2021-02-02 2021-02-02 Emergency [facility] [id number] [place] 14:47:00 17:56:00 Shazia burns 2021-02-02 2021-02-02 Emergency [facility] [id number] [place] 15:08:10 15:31:04 [facility] 2021-01-02 2021-01-03 Emergency Juan, 1.2.840.1 [id number] Methodi 18:54:00 01:22:00 Donaldo Ramos [address]65.1.[address] 3.430.2.7 Hospit a .3.556222 l .8 2020-12-24 2020-12-24 Emergency JAELYN Roa, [facility] [id number] [facility] 12:04:00 17:13:00 Jerry 01 [facility] Results Test Description Test Time Test Comments Results Result Comments Source BASIC METABOLIC PANEL (NA, K, CL, CO2, GLUCOSE, BUN, 2022-08 03:38:19 CREATININE, [place]) Test Item Value Reference Range Interpretation Comme nts NA (test code = 2282809234) 137 mmol/L 135-145 K (test code = 6047419293) 5.9 mmol/L 3.5-5.0 H CL (test code = 0776028481) 103 mmol/L 98-108 CO2 TOTAL (test code = 3496713719) 25 mmol/L 23-31 AGAP (test code = 6108789223) 9 2-16 BUN (test code = 0930014041) 23 mg/dL 7-23 GLUCOSE (test code = 0352809176) 235 mg/dL 70-110 H CREATININE (test code = 1.14 mg/dL 0.60-1.25 6018322262) CALCIUM (test code = 1016094891) 8.8 mg/dL 8.6-10.6 eGFR (test code = 4788667753) 66.7 mL/min/1.73m2 MOE (test code = MOE) [...] tests). Lab Interpretation (test code = Abnormal 39795-7) [facility] 07:30:03 Test Item Value Reference Range Interpretation Comments POCT GLU (test code = 7977137703) 175 mg/dL 70-110 H Lab Interpretation (test code = Abnormal 58400-2) [facility] METABOLIC PANEL (NA, K, CL, CO2, GLUCOSE, BUN, CREATININE, CA)2022-08-14 06:49:10 Test Item Value Reference Range Interpretation Comments NA (test code = 137 mmol/L 135-145 1598613161) K (test code = 4.8 mmol/L 3.5-5.0 5375419517) CL (test code = 106 mmol/L 98-108 8797549080) CO2 TOTAL (test code = 25 mmol/L 23-31 5140153405) AGAP (test code = 6 2-16 4619824258) BUN (test code = 35 mg/dL 7-23 H 1498593553) GLUCOSE (test code = 187 mg/dL 70-110 H 0261160147) CREATININE (test code = 1.19 mg/dL 0.60-1.25 0515499811) CALCIUM (test code = 8.5 mg/dL 8.6-10.6 L 5348334812) eGFR (test code = 63.5 mL/min/1.73m2 9796617741) MOE (test code = MOE) Association of [...] tests). Lab Interpretation Abnormal (test code = 63697-2) [facility] WITH [id number] 06:35:09 Test Item Value Reference Range Interpretation [...] (test code = 58.6 fL 38.5-51.6 H 99589-6) RDW-CV (test code = 17.5 % 12.1-15.4 H 788-0) PLT (test code = 328 See_Comment [Automated 777-3) message] The sy stem which generated this result transmitted reference range : 150 - 328 10*3/ ?L. The reference r maggi was not used to interpret this result as normal/abnormal . MPV (test code = 10.1 fL 9.8-13.0 40522-9) NRBC/100 WBC (test 0.0 See_Comment [Automat ed code = 5314110041) message] The system which generated this result transmitted reference range : 0.0 - 10.0 /100 WBCs. The refer ence range was not u sed to interpret th is result as normal/abnormal . NRBC x10^3 (test code See_Comment [Auto mated = 3930057249) message] The s ystem which generated this result transmitted reference range : 10*3/?L. The reference range was not used to interpret this result as normal/abnormal . GRAN MAT (NEUT) % 63.9 % (test code = 770-8) IMM GRAN % (test code 0.50 % = 5108812243) LYMPH % (test code = 24.9 % 736-9) MONO % (test code = 7.4 % 5905-5) EOS % (test code = 2.4 % 713-8) BASO % (test code = 0.9 % 706-2) GRAN MAT x10^3(ANC) 4.21 10*3/uL 1.99-6.95 (test code = 1266163985) IMM GRAN x10^3 (test 0.03 10*3/uL 0.00-0.06 code = 0009836043) LYMPH x10^3 (test code 1.64 10*3/uL 1.09-3.23 = 731-0) MONO x10^3 (test code 0.49 10*3/uL 0.36-1.02 = 742-7) EOS x10^3 (test code = 0.16 10*3/uL 0.06-0.53 711-2) BASO x10^3 (test code 0.06 10*3/uL 0.01-0.09 = 704-7) Lab Interpretation Abnormal (test code = 46240-6) [facility] 12 [id number] 20:13:46 Test Item Value Reference Range Interpretation Comments Ventricular rate (test 79 code = 253) Atrial rate (test code 79 = 255) [place] interval (test code 150 = 266) QRSD [...] Cannon MD ([id number]) on 08/08/2022 3:13:[address]2023-04-20 20:13:46 Test Item Value Reference Range Interpretation Comments Ventricular rate (test 79 code = 253) Atrial rate (test code 79 = 255) [place] interval (test code 150 = 266) QRSD [...] Cannon MD ([id number]) on 08/08/2022 3:13:[address]2023-04-20 20:13:46 Test Item Value Reference Range Interpretation Comments Ventricular rate (test 79 code = 253) Atrial rate (test code 79 = 255) [place] interval (test code 150 = 266) QRSD [...] Cannon MD ([id number]) on 08/08/2022 3:13:[address]2023-04-20 20:13:46 Test Item Value Reference Range Interpretation Comments Ventricular rate (test 79 code = 253) Atrial rate (test code 79 = 255) [place] interval (test code 150 = 266) QRSD [...] Cannon MD ([id number]) on 08/08/2022 3:13:[address]2023-04-20 20:13:46 Test Item Value Reference Range Interpretation Comments Ventricular rate (test 79 code = 253) Atrial rate (test code 79 = 255) [place] interval (test code 150 = 266) QRSD [...] Cannon MD ([id number]) on 08/08/2022 3:13:[address]2023-04-20 20:13:46 Test Item Value Reference Range Interpretation Comments Ventricular rate (test 79 code = 253) Atrial rate (test code 79 = 255) [place] interval (test code 150 = 266) QRSD [...] Cannon MD ([id number]) on 08/08/2022 3:13:[address]2023-04-20 20:13:46 Test Item Value Reference Range Interpretation Comments Ventricular rate (test 79 code = 253) Atrial rate (test code 79 = 255) [place] interval (test code 150 = 266) QRSD [...] Cannon MD ([id number]) on 08/08/2022 3:13:43 PM [facility]2023-04-20 05:30:00 Test Item Value Reference Range Interpretation Comments AFB culture No growth Specimen isolate (test after 6 weeks InformationSp ecimen code = 543-9) of Source: Tissue Specimen incubation. Site: Leg: Left Lower Extremity - Cul ture [facility]2023-04-20 05:30:00 Test Item Value Reference Range Interpretation Comments AFB culture No growth Specimen isolate (test after 6 weeks InformationSp ecimen code = 543-9) of Source: Tissue Specimen incubation. Site: Leg: Left Lower Extremity - Cul ture [facility]2023-04-20 05:30:00 Test Item Value Reference Range Interpretation Comments AFB culture No growth Specimen isolate (test after 6 weeks InformationSp ecimen code = 543-9) of Source: Tissue Specimen incubation. Site: Leg: Left Lower Extremity - [facility] [place] [place] ieiilxu8017-87-94 05:30:00 Test Item Value Reference Range Interpretation Comments AFB culture No growth Specimen isolate (test after 6 weeks InformationSp ecimen code = 543-9) of Source: Tissue Specimen incubation. Site: Leg: Left Lower Extremity - [facility] [place] [place] rpyqyqw0970-25-34 05:30:00 Test Item Value Reference Range Interpretation Comments AFB culture No growth Specimen isolate (test after 6 weeks InformationSp ecimen code = 543-9) of Source: Tissue Specimen incubation. Site: Leg: Left Lower Extremity - [facility] [place] [place] [id number] 05:30:00 Test Item Value Reference Range Interpretation Comments AFB culture No growth Specimen isolate (test after 6 weeks InformationSp ecimen code = 543-9) of Source: Tissue Specimen incubation. Site: Leg: Left Lower Extremity - [facility] [place] [place] [id number] 05:30:00 Test Item Value Reference Range Interpretation Comments AFB culture No growth Specimen isolate (test after 6 weeks InformationSp ecimen code = 543-9) of Source: Tissue Specimen incubation. Site: Leg: Left Lower Extremity - [facility] GLUCOSE (AUTOMATED)2022-07-31 22:28:25 Test Item Value Reference Range Interpretation Comments POCT GLU (test code = 6788067544) 116 mg/dL 70-110 H Lab Interpretation (test code = Abnormal 73929-0) [facility] GLUCOSE (AUTOMATED)2022-07-31 17:14:36 Test Item Value Reference Range Interpretation Comments POCT GLU (test code = 9469451423) 136 mg/dL 70-110 H Lab Interpretation (test code = Abnormal 57897-9) [facility] GLUCOSE (AUTOMATED)2022-07-31 01:47:10 Test Item Value Reference Range Interpretation Comments POCT GLU (test code = 9044121335) 141 mg/dL 70-110 H Lab Interpretation (test code = Abnormal 47836-2) [facility] GLUCOSE (AUTOMATED)2022-07-30 23:18:09 Test Item Value Reference Range Interpretation Comments POCT GLU (test code = 5392382115) 140 mg/dL 70-110 H Lab Interpretation (test code = Abnormal 64015-6) [facility] GLUCOSE (AUTOMATED)2022-07-30 18:43:38 Test Item Value Reference Range Interpretation Comments POCT GLU (test code = 1549027931) 165 mg/dL 70-110 H Lab Interpretation (test code = Abnormal 84436-4) [facility] GLUCOSE (AUTOMATED)2022-07-30 14:19:36 Test Item Value Reference Range Interpretation Comments POCT GLU (test code = 8524174535) 90 mg/dL 70-110 Lab Interpretation (test code = Normal 33892-0) [facility] GLUCOSE (AUTOMATED)2022-07-30 01:37:57 Test Item Value Reference Range Interpretation Comments POCT GLU (test code = 7041132127) 100 mg/dL 70-110 Lab Interpretation (test code = Normal 38050-4) [facility] GLUCOSE (AUTOMATED)2022-07-29 22:44:33 Test Item Value Reference Range Interpretation Comments POCT GLU (test code = 6804077974) 113 mg/dL 70-110 H Lab Interpretation (test code = Abnormal 12091-7) [facility] GLUCOSE (AUTOMATED)2022-07-29 18:36:00 Test Item Value Reference Range Interpretation Comments POCT GLU (test code = 1718845977) 108 mg/dL 70-110 Lab Interpretation (test code = Normal 81136-6) [facility] GLUCOSE (AUTOMATED)2022-07-29 13:47:37 Test Item Value Reference Range Interpretation Comments POCT GLU (test code = 6842708846) 91 mg/dL 70-110 Lab Interpretation (test code = Normal 18857-3) [facility] GLUCOSE (AUTOMATED)2022-07-29 01:19:16 Test Item Value Reference Range Interpretation Comments POCT GLU (test code = 7175914382) 143 mg/dL 70-110 H Lab Interpretation (test code = Abnormal 68905-0) [facility] GLUCOSE (AUTOMATED)2022-07-28 21:10:26 Test Item Value Reference Range Interpretation Comments POCT GLU (test code = 6624090009) 148 mg/dL 70-110 H Lab Interpretation (test code = Abnormal 92038-0) [facility] GLUCOSE (AUTOMATED)2022-07-28 17:13:13 Test Item Value Reference Range Interpretation Comments POCT GLU (test code = 8758589560) 199 mg/dL 70-110 H Lab Interpretation (test code = Abnormal 35956-2) [facility] GLUCOSE (AUTOMATED)2022-07-28 12:53:47 Test Item Value Reference Range Interpretation Comments POCT GLU (test code = 2515465684) 113 mg/dL 70-110 H Lab Interpretation (test code = Abnormal 64717-2) [facility] GLUCOSE (AUTOMATED)2022-07-28 08:02:41 Test Item Value Reference Range Interpretation Comments POCT GLU (test code = 3976989781) 126 mg/dL 70-110 H Lab Interpretation (test code = Abnormal 53772-4) [facility] [id number] 05:40:00 Test Item Value Reference Range Interpretation Comments Fungus culture No growth Specimen isolate (test after 4 weeks InformationSp ecimen code = 580-1) of Source: Tissue Specimen incubation. Site: Leg: Left Lower Extremity - Cul ture [facility] ffcdasv3907-78-11 05:40:00 Test Item Value Reference Range Interpretation Comments Fungus culture No growth Specimen isolate (test after 4 weeks InformationSp ecimen code = 580-1) of Source: Tissue Specimen incubation. Site: Leg: Left Lower Extremity - Cul [facility] [id number] 05:40:00 Test Item Value Reference Range Interpretation Comments Fungus culture No growth Specimen isolate (test after 4 weeks InformationSp ecimen code = 580-1) of Source: Tissue Specimen incubation. Site: Leg: Left Lower Extremity - Cul [facility]ure [facility] [id number] 05:40:00 Test Item Value Reference Range Interpretation Comments Fungus culture No growth Specimen isolate (test after 4 weeks InformationSp ecimen code = 580-1) of Source: Tissue Specimen incubation. Site: Leg: Left Lower Extremity - Cul [facility]ure [facility] cqfodmc6578-25-71 05:40:00 Test Item Value Reference Range Interpretation Comments Fungus culture No growth Specimen isolate (test after 4 weeks InformationSp ecimen code = 580-1) of Source: Tissue Specimen incubation. Site: Leg: Left Lower Extremity - Cul [facility] oawpfkp2149-29-99 05:40:00 Test Item Value Reference Range Interpretation Comments Fungus culture No growth Specimen isolate (test after 4 weeks InformationSp ecimen code = 580-1) of Source: Tissue Specimen incubation. Site: Leg: Left Lower Extremity - Cul [facility] syqceeu5632-33-50 05:40:00 Test Item Value Reference Range Interpretation Comments Fungus culture No growth Specimen isolate (test after 4 weeks InformationSp ecimen code = 580-1) of Source: Tissue Specimen incubation. Site: Leg: [facility] (11254)2022-07-19 03:26:53 Test Item Value Reference Range Interpretation Comments NA (test code = 140 mmol/L 135-145 4068406709) K (test code = 5.3 mmol/L 3.5-5.0 H 8278137103) CL (test code = 101 mmol/L 98-108 7271970081) CO2 TOTAL (test code = 27 mmol/L 23-31 6171738174) AGAP (test code = 12 2-16 6640052175) BUN (test code = 30 mg/dL 7-23 H 2485076964) GLUCOSE (test code = 189 mg/dL 70-110 H 5633913745) CREATININE (test code = 1.24 mg/dL 0.60-1.25 9555140219) TOTAL BILI (test code = 0.4 mg/dL 0.1-1.6 5970922258) CALCIUM (test code = 9.3 mg/dL 8.6-10.6 9582928119) T PROTEIN (test code = 8.0 g/dL 6.3-8.2 8483235195) ALBUMIN (test code = 4.1 g/dL 3.5-5.0 4908538183) ALK PHOS (test code = 107 U/L 34-122 8162120968) ALTv (test code = 43 U/L 5-50 1742-6) AST(SGOT) (test code = 38 U/L 13-40 3107865767) eGFR (test code = 60.5 mL/min/1.73m2 6660531187) MOE (test code = MOE) Association of [...] tests). Lab Interpretation Abnormal (test code = 67105-8) [facility] with [id number] 03:23:09 Test Item Value Reference Range Interpretation Comments WBC (test code = 6.48 See_Comment [Automated 6373-2) message] The sy stem which generated this result transmitted reference range : 4.20 - 10.70 10*3/?L. The reference range was not used to interpret this result as normal/abnormal . RBC (test code = 4.08 See_Comment L [Automated 623-8) message] The sy stem which generated this [...] RDW-SD (test code = 49.0 fL 38.5-51.6 02518-0) RDW-CV (test code = 15.0 % 12.1-15.4 788-0) PLT (test code = 542 See_Comment H [Automated 777-3) message] The sy stem which generated this result transmitted reference range : 150 - 328 10*3/ ?L. The reference r maggi was not used to interpret this result as normal/abnormal . MPV (test code = 9.6 fL 9.8-13.0 L 32845-1) NRBC/100 WBC (test 0.0 See_Comment [Automat ed code = 7612588938) message] The system which generated this result transmitted reference range : 0.0 - 10.0 /100 WBCs. The refer ence range was not u sed to interpret th is result as normal/abnormal . NRBC x10^3 (test code See_Comment [Auto mated = 1374211534) message] The s ystem which generated this result transmitted reference range : 10*3/?L. The reference range was not used to interpret this result as normal/abnormal . GRAN MAT (NEUT) % 60.7 % (test code = 770-8) IMM GRAN % (test code 0.50 % = 3958092394) LYMPH % (test code = 28.2 % 736-9) MONO % (test code = 6.9 % 5905-5) EOS % (test code = 2.5 % 713-8) BASO % (test code = 1.2 % 706-2) GRAN MAT x10^3(ANC) 3.93 10*3/uL 1.99-6.95 (test code = 1956005046) IMM GRAN x10^3 (test 0.03 10*3/uL 0.00-0.06 code = 3730121434) LYMPH x10^3 (test code 1.83 10*3/uL 1.09-3.23 = 731-0) MONO x10^3 (test code 0.45 10*3/uL 0.36-1.02 = 742-7) EOS x10^3 (test code = 0.16 10*3/uL 0.06-0.53 711-2) BASO x10^3 (test code 0.08 10*3/uL 0.01-0.09 = 704-7) Lab Interpretation Abnormal (test code = 53735-8) [facility] wepuevw5667-06-32 16:22:00 Test Item Value Reference Range Interpretation Comments POC glucose (test code = 245 mg/dL 65-100 H Ope rator Name: Marilin 20604-6) GarzaDevice ID: [id number] Lab Interpretation (test Abnormal code = 20617-7) [facility] zuiswye3278-39-64 16:22:00 Test Item Value Reference Range Interpretation Comments POC glucose (test code = 245 mg/dL 65-100 H Ope rator Name: Marilin 22090-9) GarzaDevice ID: [id number] Lab Interpretation (test Abnormal code = 78010-1) [facility] [id number] 16:22:00 Test Item Value Reference Range Interpretation Comments POC glucose (test code = 245 mg/dL 65-100 H Ope rator Name: Marilin 11455-4) GarzaDevice ID: [id number] Lab Interpretation (test Abnormal code = 87504-6) [facility] [id number] 16:22:00 Test Item Value Reference Range Interpretation Comments POC glucose (test code = 245 mg/dL 65-100 H Ope rator Name: Marilin 38151-7) GarzaDevice ID: [id number] Lab Interpretation (test Abnormal code = 82734-8) [facility] ekscywk8198-01-84 16:22:00 Test Item Value Reference Range Interpretation Comments POC glucose (test code = 245 mg/dL 65-100 H Ope rator Name: Marilin 58718-2) GarzaDevice ID: [id number] Lab Interpretation (test Abnormal code = 73231-2) [facility] wfpeazg5521-47-56 16:22:00 Test Item Value Reference Range Interpretation Comments POC glucose (test code = 245 mg/dL 65-100 H Ope rator Name: Marilin Shen53-7) GarzaDevice ID: [id number] Lab Interpretation (test Abnormal code = 10418-6) [facility] gszbwpy2405-31-88 16:22:00 Test Item Value Reference Range Interpretation Comments POC glucose (test code = 245 mg/dL 65-100 H Ope rator Name: Marilin 08998-3) GarzaDevice ID: [id number] Lab Interpretation (test Abnormal code = 03858-7) [facility] dlhek6130[facility] 19:17:00 Test Item Value Reference Range Interpretation Comments IMP PCR (test NOT DETECTED Specimen Infor mationSpecimen code = Source: [facility] Site: 81234-0) Tissue [id number] 07 OXA-48 PCR NOT DETECTED (test code = 8006) [facility] taixf4659-84-97 19:17:00 Test Item Value Reference Range Interpretation Comments IMP PCR (test NOT DETECTED Specimen Infor mationSpecimen code = Source: [facility] Site: 47788-2) Tissue [id number] 07 OXA-48 PCR NOT DETECTED (test code = 8006) [facility] obirg2208-51-63 19:17:00 Test Item Value Reference Range Interpretation Comments IMP PCR (test NOT DETECTED Specimen Infor mationSpecimen code = Source: [facility] Site: 99701-8) Tissue [id number] 07 OXA-48 PCR NOT DETECTED (test code = 8006) [facility] ogfrn8810-37-52 19:17:00 Test Item Value Reference Range Interpretation Comments IMP PCR (test NOT DETECTED Specimen Infor mationSpecimen code = Source: [facility] Site: 68280-9) Tissue [id number] 07 OXA-48 PCR NOT DETECTED (test code = 8006) [facility] nrezk3065-45-04 19:17:00 Test Item Value Reference Range Interpretation Comments IMP PCR (test NOT DETECTED Specimen Infor mationSpecimen code = Source: [facility] Site: 13119-5) Tissue [id number] 07 OXA-48 PCR NOT DETECTED (test code = 8006) [facility] vvrwv0015-35-24 19:17:00 Test Item Value Reference Range Interpretation Comments IMP PCR (test NOT DETECTED Specimen Infor mationSpecimen code = Source: [facility] Site: 40722-4) Tissue [id number] 07 OXA-48 PCR NOT DETECTED (test code = 8006) [facility] tieod9147-13-46 19:17:00 Test Item Value Reference Range Interpretation Comments IMP PCR (test NOT DETECTED Specimen Infor mationSpecimen code = Source: [facility] Site: 93777-3) Tissue [id number] 07 OXA-48 PCR NOT DETECTED (test code = 8006) [facility] xepeknb9850-84-78 13:15:00 Test Item Value Reference Range Interpretation Comments Anaerobic No anaerobic Specimen culture isolate organisms InformationS pecimen (test code = isolated. Source: TissueS pecimen 70907-2) Site: Leg: Left Lower Extremity - [facility] uhbxtql4936-24-59 13:15:00 Test Item Value Reference Range Interpretation Comments Anaerobic No anaerobic Specimen culture isolate organisms InformationS pecimen (test code = isolated. Source: TissueS pecimen 40467-0) Site: Leg: Left Lower Extremity - Cul ture [facility] pvevtet5568-79-12 13:15:00 Test Item Value Reference Range Interpretation Comments Anaerobic No anaerobic Specimen culture isolate organisms InformationS pecimen (test code = isolated. Source: TissueS pecimen 06646-9) Site: Leg: Left Lower Extremity - Cul ture [facility] ikdynzw2660-10-08 13:15:00 Test Item Value Reference Range Interpretation Comments Anaerobic No anaerobic Specimen culture isolate organisms InformationS pecimen (test code = isolated. Source: TissueS pecimen 15715-5) Site: Leg: Left Lower Extremity - Cul ture [facility] bdezklo5108-36-15 13:15:00 Test Item Value Reference Range Interpretation Comments Anaerobic No anaerobic Specimen culture isolate organisms InformationS pecimen (test code = isolated. Source: TissueS [facility] 42781-7) Site: Leg: Left Lower Extremity - [facility] tlfcgnl6870-39-70 13:15:00 Test Item Value Reference Range Interpretation Comments Anaerobic No anaerobic Specimen culture isolate organisms InformationS pecimen (test code = isolated. Source: [facility] 52071-8) Site: Leg: Left Lower Extremity - [facility] gjdpvgi9759-02-57 13:15:00 Test Item Value Reference Range Interpretation Comments Anaerobic No anaerobic Specimen culture isolate organisms InformationS pecimen (test code = isolated. Source: TissueS [facility] 87016-9) Site: Leg: Left Lower Extremity - [facility] [place] [place] gcvhn9500-47-19 14:49:00 Test Item Value Reference Range Interpretation Comments AFB stain No acid fast Specimen (test code = bacilli (AFB) InformationSpe cimen 676-7) seen. Source: [facility] Site: Leg: Left Lower Extremity [facility] nealo9843-38-22 14:49:00 Test Item Value Reference Range Interpretation Comments AFB stain No acid fast Specimen (test code = bacilli (AFB) InformationSpe cimen 676-7) seen. Source: [facility] Site: Leg: Left Lower Extremity [facility] ctqhk3161-70-07 14:49:00 Test Item Value Reference Range Interpretation Comments AFB stain No acid fast Specimen (test code = bacilli (AFB) InformationSpe cimen 676-7) seen. Source: [facility] Site: Leg: Left Lower Extremity - [facility] [place] [place] nwrgq1340-40-89 14:49:00 Test Item Value Reference Range Interpretation Comments AFB stain No acid fast Specimen (test code = bacilli (AFB) InformationSpe cimen 676-7) seen. Source: [facility] Site: Leg: Left Lower Extremity - [facility] [place], [place] [id number] 14:49:00 Test Item Value Reference Range Interpretation Comments AFB stain No acid fast Specimen (test code = bacilli (AFB) InformationSpe cimen 676-7) seen. Source: [facility] Site: Leg: Left Lower Extremity - [facility] [id number] 14:49:00 Test Item Value Reference Range Interpretation Comments AFB stain No acid fast Specimen (test code = [facility]illi ([facility]B) [facility] seen. Source: [facility] Site: Leg: Left Lower Extremity - [place] [facility] [id number] 14:49:00 Test Item Value Reference Range Interpretation Comments AFB stain No acid fast Specimen (test code = bacilli (AFB) InformationSpe cimen 676-7) seen. Source: [facility] Site: Leg: Left Lower Extremity - [facility] [id number] 18:08:00 Test Item Value Reference Range Interpretation Comments Fungus smear No fungi Specimen (test code = observed. [employer] Source: 1443) [facility] Site: Leg: Left Lower Extr emity - Culture [facility] [id number] 18:08:00 Test Item Value Reference Range Interpretation Comments Fungus smear No fungi Specimen (test code = observed. [employer] Source: 1443) [facility] Site: Leg: Left Lower Extr emity - Culture [facility] [id number] 18:08:00 Test Item Value Reference Range Interpretation Comments Fungus smear No fungi Specimen (test code = observed. [employer] Source: 1443) [facility] Site: Leg: Left Lower Extr emity - Culture [facility] [id number] 18:08:00 Test Item Value Reference Range Interpretation Comments Fungus smear No fungi Specimen (test code = observed. [employer] Source: 1443) [facility] Site: Leg: Left Lower Extr emity - Culture [facility] [id number] 18:08:00 Test Item Value Reference Range Interpretation Comments Fungus smear No fungi Specimen (test code = observed. [employer] Source: 1443) [facility] Site: Leg: Left Lower Extr emity - Culture [facility] [id number] 18:08:00 Test Item Value Reference Range Interpretation Comments Fungus smear No fungi Specimen (test code = observed. [employer] Source: 1443) [facility] Site: Leg: Left Lower Extr emity - Culture [facility] [id number] 18:08:00 Test Item Value Reference Range Interpretation Comments Fungus smear No fungi Specimen (test code = observed. InformationSpec imen [facility]: 1443) [facility]: [facility] Lower Extr emity - Culture [facility] [id number] 17:14:00 Test Item Value Reference Range Interpretation Comments Gram stain Few Gram Specimen isolate (test negative rods InformationSp ecimen code = 1469) Source: [facility] Site: Leg: Left Lower Extremity - [facility] [id number] 17:14:00 Test Item Value Reference Range Interpretation Comments Gram stain Few Gram Specimen isolate (test negative rods InformationSp ecimen code = 1469) Source: [facility] Site: Leg: Left Lower Extremity - [facility] [id number] 17:14:00 Test Item Value Reference Range Interpretation Comments Gram stain Few Gram Specimen isolate (test negative rods InformationSp ecimen code = 1469) Source: [facility] Site: Leg: Left Lower Extremity - [facility] [id number] 17:14:00 Test Item Value Reference Range Interpretation Comments Gram stain Few Gram Specimen isolate (test negative rods InformationSp ecimen code = 1469) Source: [facility] Site: Leg: Left Lower Extremity - [facility] [id number] 17:14:00 Test Item Value Reference Range Interpretation Comments Gram stain Few Gram Specimen isolate (test negative rods InformationSp ecimen code = 1469) Source: [facility] Site: Leg: Left Lower Extremity - [facility] [id number] 17:14:00 Test Item Value Reference Range Interpretation Comments Gram stain Few Gram Specimen isolate (test negative rods InformationSp ecimen code = 1469) Source: [facility] Site: Leg: Left Lower Extremity [facility] [id number] 17:14:00 Test Item Value Reference Range Interpretation Comments Gram stain Few Gram Specimen isolate (test negative rods InformationSp ecimen code = 1469) Source: [facility] Site: Leg: Left Lower Extremity - [facility] pathology [id number] 22:46:05 Test Item Value Reference Range Interpretation Comments Case number (test code = [id number]) Surgical pathology See link below for report (test code = PDF Lab Report 2255) Result status (test code This is Final Report = [id number]) for [address] pathology [id number] 22:46:05 Test Item Value Reference Range Interpretation Comments Case number (test code = [id number]) Surgical pathology See link below for report (test code = PDF Lab Report 2255) Result status (test code This is Final Report = [id number]) for [address] pathology [id number] 22:46:05 Test Item Value Reference Range Interpretation Comments Case number (test code = [id number]) Surgical pathology See link below for report (test code = PDF Lab Report 2255) Result status (test code This is Final Report = [id number]) for [address] pathology [id number] 22:46:05 Test Item Value Reference Range Interpretation Comments Case number (test code = [id number]) Surgical pathology See link below for report (test code = PDF Lab Report 2255) Result status (test code This is Final Report = [id number]) for [address] pathology [id number] 22:46:05 Test Item Value Reference Range Interpretation Comments Case number (test code = [id number]) Surgical pathology See link below for report (test code = PDF Lab Report 2255) Result status (test code This is Final Report = [id number]) for [address] pathology [id number] 22:46:05 Test Item Value Reference Range Interpretation Comments Case number (test code = [id number]) Surgical pathology See link below for report (test code = PDF Lab Report 2255) Result status (test code This is Final Report = [id number]) for [address] pathology [id number] 22:46:05 Test Item Value Reference Range Interpretation Comments Case number (test code = [id number]) Surgical pathology See link below for report (test code = PDF Lab Report 2255) Result status (test code This is Final Report = [id number]) [id number], (w Contrast, Strain and 3D if needed)2022-05-10 21:23:23 Test Item Value Reference Interpretation Comments Range Ao Root Diameter 3.34 cm (test code = 1928149060) AoV Area, Vmax (test 3.02 cm2 >=1.5 code = 0420335799) AoV Area, VTI (test 3.07 cm2 code = 1887838771) AoV Mean PG (test 4.26 mmHg code = 1056320041) AoV Peak PG (test 6.38 mmHg code = 2949217460) AoV Vmax (test code 1.42 m/s = 8936589501) AoV VTI (test code = 0.26 m 1073312201) BSA Rashid (test code 2.11 m2 = 9023172337) BSA (test code = 2.02 m2 1236539054) IVS,d (test code = 0.84 cm 0.6-9 2774705699) IVS/LVPW,2D (test 0.98 code = 5370015911) Left Atrium 3.49 cm Dimension Anterior (test code = 3404616035) LV,d (test code = 4.74 cm 4838506414) LV EF,2D (test code 64.34 % = 3753094354) LV,s (test code = 3.36 cm 3855341974) LVOT area (test code 3.53 cm2 = 3088004491) LVOT Diam,S (test 2.12 cm code = 3736912219) LVOT Vmax (test code 1.13 m/s = 9617080903) LVOT VTI (test code 0.21 m = 9784494056) LVPWD,d (test code = 0.85 cm 0.60-1.19 7516357126) MV E A ratio (test 0.86 code = 5128184963) AoV area i VTI BSA 1.52 cm2/m2 >=0.85 [place] (test code = 6562852054) BMI (test code = 31.32 kg/m2 0138528751) E wave decelartion 89.56 See_Comment A [Automat ed time (test code = message] T he 1912369955) system which generated this result transmitted reference range : 200 msec. The reference range was not used to interpret this result as normal/abnormal . MV Peak A Quirino (test 0.88 m/s code = 0152497404) MV valve area p 1/2 8.47 cm2 method (test code = 1595211252) MV Peak E Quirino (test 0.75 m/s code = 9528963766) MV stenosis pressure 25.97 ms 1/2 time (test code = 0120984771) LVOT stroke volume 0.74 ml (test code = 2573021752) AV LVOT peak 4.69 mmHg gradient (test code = 6272109266) Ao Root Diameter 3.34 cm (test code = 9370847865) MV mean gradient 1.92 mmHg (test code = 1165121964) LV SYS VOL (test 46.16 ml 21-61 code = 0334192405) LV ANDERSON VOL (test 104.46 ml 62-150 code = 6425297590) LA area s A4C (test 17.60 cm2 code = 2434685046) LV SI Teich 2D (test 28.83 ml/m2 code = 9060997254) LV SV Teich 2D (test 58.30 ml code = 0635326554) LV Vol s Teich PSAX 46.16 ml (test code = 1394797654) LVOT CI (test code = 3.53 l/min/m2 8413977282) LVOT CO (test code = 7.14 l/min 5336114003) LVOT HR for LVOT CO 98.89 bpm (test code = 9640111465) LVOT SI (test code = 35.72 ml/m2 9256083211) MR peak grad (test 3.00 mmHg code = 4654071359) MV Vmax (test code = 0.87 m 9549386988) MV VTI Tips (test 0.14 m code = 0508069832) BSA Haycock (test 2.10 m2 code = 9878297773) AoV Vmn (test code = 0.97 m/s 2722550173) IVS s 2D (test code 1.17 cm = 2008944501) LV FS Teich 2D (test 29.09 code = 0002781071) MV AE ratio (test 1.17 code = 6104472036) LV FS Cube 2D (test 29.09 code = 9129233432) LVOT Vmn (test code 0.75 = 5943397890) Pt Size (test code = 170.18 8526186629) Pt Wt (test code = 90.72 4983768297) Aov area Vmn (test 3.05 cm2 code = 7149063760) LVOT mean grad (test 2.57 mmHg code = 3853084398) 85 of MPHR (test 140.25 code = 5574939287) AoV area I VMN bsa 1.51 cm2/m2 (test code = 0788123352) Calc MPHR (test code 165.01 bpm = 2935964590) IVS pct thck PLAX 39.76 % (test code = 0702883428) LV SI Cube 2D (test 33.91 ml/m2 code = 7798423749) LV SV Cube 2D (test 68.57 ml code = 2979841576) LV vol d cube 2D 106.56 ml (test code = 2905170673) LV vol s cube 2D 38.00 ml (test code = 6886241621) LVPW pct thck PLAX 35.24 % (test code = 9055681357) LVPW s PLAX (test 1.16 cm code = 7975889162) MV Decel slope (test 8.38 m/s2 code = 1519470463) Pred Exer Dur R1 9.48 (test code = 1832438045) Pred METS R1 (test 9.75 code = 6732228659) LA Vol MOD A4C (test 46.56 ml code = 8284298278) Velocity Ratio 0.80 m/s (V1/V2) (test code = 4689) EF (test code = 56 % 4573705208) E/A ratio (test code 0.85 = 3718980997) LVOT VTI (CM) (test 21.00 cm code = 5731753568) MOE (test code = MOE) Left Ventricle: [...] normal. Lab Interpretation Abnormal (test code = 99826-3) [facility], (w Contrast, Strain and 3D if needed)2022-05-10 21:23:23 Test Item Value Reference Interpretation Comments Range Ao Root Diameter 3.34 cm (test code = 9852331678) AoV Area, Vmax (test 3.02 cm2 >=1.5 code = 7783243495) AoV Area, VTI (test 3.07 cm2 code = 0372016353) AoV Mean PG (test 4.26 mmHg code = 7775400627) AoV Peak PG (test 6.38 mmHg code = 3205292154) AoV Vmax (test code 1.42 m/s = 0061991985) AoV VTI (test code = 0.26 m 1298143794) BSA Rashid (test code 2.11 m2 = 4469955640) BSA (test code = 2.02 m2 4831040857) IVS,d (test code = 0.84 cm 0.6-8 4863182347) IVS/LVPW,2D (test 0.98 code = 3492379371) Left Atrium 3.49 cm Dimension Anterior (test code = 1400515088) LV,d (test code = 4.74 cm 4671024335) LV EF,2D (test code 64.34 % = 1097118946) LV,s (test code = 3.36 cm 6336952287) LVOT area (test code 3.53 cm2 = 3299211787) LVOT Diam,S (test 2.12 cm code = 3781299215) LVOT Vmax (test code 1.13 m/s = 1839998652) LVOT VTI (test code 0.21 m = 5646415760) LVPWD,d (test code = 0.85 cm 0.60-1.19 6279396106) MV E A ratio (test 0.86 code = 8410693986) AoV area i VTI BSA 1.52 cm2/m2 >=0.85 [place] (test code = 0689749312) BMI (test code = 31.32 kg/m2 1347597794) E wave decelartion 89.56 See_Comment A [Automat ed time (test code = message] T he 3986613125) system which generated this result transmitted reference range : 200 msec. The reference range was not used to interpret this result as normal/abnormal . MV Peak A Quirino (test 0.88 m/s code = 1661608306) MV valve area p 1/2 8.47 cm2 method (test code = 9559808426) MV Peak E Quirino (test 0.75 m/s code = 3726333521) MV stenosis pressure 25.97 ms 1/2 time (test code = 1886516997) LVOT stroke volume 0.74 ml (test code = 3135699414) AV LVOT peak 4.69 mmHg gradient (test code = 0196702022) Ao Root Diameter 3.34 cm (test code = 6421376211) MV mean gradient 1.92 mmHg (test code = 7002671346) LV SYS VOL (test 46.16 ml 21-61 code = 1552178434) LV ANDERSON VOL (test 104.46 ml 62-150 code = 4856478266) LA area s A4C (test 17.60 cm2 code = 8345643882) LV SI Teich 2D (test 28.83 ml/m2 code = 3742364012) LV SV Teich 2D (test 58.30 ml code = 3795167218) LV Vol s Teich PSAX 46.16 ml (test code = 6895745809) LVOT CI (test code = 3.53 l/min/m2 0145876822) LVOT CO (test code = 7.14 l/min 8372465802) LVOT HR for LVOT CO 98.89 bpm (test code = 2286332576) LVOT SI (test code = 35.72 ml/m2 9286629391) MR peak grad (test 3.00 mmHg code = 0533673302) MV Vmax (test code = 0.87 m 8796470283) MV VTI Tips (test 0.14 m code = 3225955692) BSA Haycock (test 2.10 m2 code = 3291493474) AoV Vmn (test code = 0.97 m/s 9755322566) IVS s 2D (test code 1.17 cm = 4850653024) LV FS Teich 2D (test 29.09 code = 5170722777) MV AE ratio (test 1.17 code = 6982661642) LV FS Cube 2D (test 29.09 code = 1328665549) LVOT Vmn (test code 0.75 = 4950901880) Pt Size (test code = 170.18 6352800600) Pt Wt (test code = 90.72 4315848664) Aov area Vmn (test 3.05 cm2 code = 5474452047) LVOT mean grad (test 2.57 mmHg code = 5803622250) 85 of MPHR (test 140.25 code = 9980591784) AoV area I VMN bsa 1.51 cm2/m2 (test code = 7953815750) Calc MPHR (test code 165.01 bpm = 3308238645) IVS pct thck PLAX 39.76 % (test code = 6716114317) LV SI Cube 2D (test 33.91 ml/m2 code = 3340805492) LV SV Cube 2D (test 68.57 ml code = 9900123916) LV vol d cube 2D 106.56 ml (test code = 3013615035) LV vol s cube 2D 38.00 ml (test code = 2903229297) LVPW pct thck PLAX 35.24 % (test code = 5321734081) LVPW s PLAX (test 1.16 cm code = 7506784440) MV Decel slope (test 8.38 m/s2 code = 1450531114) Pred Exer Dur R1 9.48 (test code = 3998658854) Pred METS R1 (test 9.75 code = 6747659513) LA Vol MOD A4C (test 46.56 ml code = 0313782806) Velocity Ratio 0.80 m/s (V1/V2) (test code = 4689) EF (test code = 56 % 6209033649) E/A ratio (test code 0.85 = 1279572910) LVOT VTI (CM) (test 21.00 cm code = 2651702630) MOE (test code = MOE) Left Ventricle: [...] normal. Lab Interpretation Abnormal (test code = 94381-1) [facility] MohqwufrOGWT-BpR-7 (COVID-19) RNA [Presence] in Respiratory specimen by LEILANI with probe [id number] 00:11:33 Test Item Value Reference Range Interpretation Comments SARS-CoV-2 (COVID-19) RNA Not detected [Presence] in Respiratory specimen by LEILANI with probe detection (test code = 23162-1) Whether patient is employed in a Unknown healthcare setting (test code = 39211-6) Whether the patient has symptoms Unknown related to condition of interest (test code = 70575-8) Whether the patient was Unknown hospitalized for condition of interest (test code = 24219-3) Whether the patient was admitted Unknown to intensive care unit (ICU) for condition of interest (test code = 69176-1) Whether patient resides in a Unknown congregate care setting (test code = 14986-9) status (test code = Unknown 97295-4) Date and time of symptom onset Unknown (test code = 37719-3) [facility] rumhqrkaqnpaxqj0363-71-29 20:52:15 Test Item Value Reference Range Interpretation Comments BSA (test code = 2.03 m2 1970516887) BSA Rashid (test code 2.12 m2 = 4859245679) BSA Haycock (test 2.11 m2 code = 5594873570) Pred METS R1 (test 9.76 code = 3635854838) Pred Exer Dur R1 9.48 (test code = 8634498539) Calc MPHR (test 165.06 bpm code = 8915555358) 85 of MPHR (test 140.30 code = 9039235039) Pt Wt (test code = 91.17 2119274077) Pt Size (test code 170.18 = 0256045082) BMI (test code = 31.48 kg/m2 0941779319) MOE (test code = MOE) Left Ventricle: [...] study. The probe was inserted by the professor of surgery. There was no probe insertion difficulty. Anesthesia was given. Refer to anesthesia note. The patient tolerated the procedure well and recovered without any complications.Prior StudyThere were no significant changes noted when compared to the prior TTE study. [facility] [id number] 20:52:15 Test Item Value Reference Range Interpretation Comments BSA (test code = 2.03 m2 5249994269) BSA Rashid (test code 2.12 m2 = 9369932469) BSA Haycock (test 2.11 m2 code = 7396113881) Pred METS R1 (test 9.76 code = 6857112819) Pred Exer Dur R1 9.48 (test code = 3267922608) Calc MPHR (test 165.06 bpm code = 0301309634) 85 of MPHR (test 140.30 code = 5106579273) Pt Wt (test code = 91.17 2604636787) Pt Size (test code 170.18 = 0384441549) BMI (test code = 31.48 kg/m2 1008183663) MOE (test code = MOE) Left Ventricle: [...] study. The probe was inserted by the professor of surgery. There was no probe insertion difficulty. Anesthesia was given. Refer to anesthesia note. The patient tolerated the procedure well and recovered without any complications.Prior StudyThere were no significant changes noted when compared to the prior TTE study. [facility] myocardial [id number] 21:20:55 Test Item Value Reference Range Interpretation Comments Target HR (test 166.00 bpm code = 5493474039) Resting HR (test 99 BPM code = 6087663882) Resting BP (test 112/70 mmHg code = 2959458493) O2 sat rest (test 99 % code = 1915995714) Post Peak HR (test 113 bpm code = 8742786645) Percent HR (test 68.07 % code = 6939902425) Post Peak BP (test 112/70 mmHg code = 6771438752) O2 sat peak (test 98 % code = 8785124013) Nuc Stress EF (test 63 % code = 7547865104) Radiology Study observation (narrative) (test code = 95672-9) MOE (test code = MOE) Conclusion: Abnormal [...] The resting administration time was at 10:07 PER DIEM on 04/17/2022. Resting images obtained at 11:22 PER DIEM. Images performed at stress after an injection of 30.5 mCi. The stress administration time was at 12:20 PER DIEM on 04/17/2022. Stress images obtained at 13:36 PER DIEM.Nuclear Study QualityA perfusion 1-day rest/stress protocol was [...] Scores: SDS Score: N/A Percentage Abnormal: N/A [facility] myocardial vatvebmdm9110-17-01 21:20:55 Test Item Value Reference Range Interpretation Comments Target HR (test 166.00 bpm code = 3868481811) Resting HR (test 99 BPM code = 9619585760) Resting BP (test 112/70 mmHg code = 0575665046) O2 sat rest (test 99 % code = 0474967301) Post Peak HR (test 113 bpm code = 5220853482) Percent HR (test 68.07 % code = 9515332694) Post Peak BP (test 112/70 mmHg code = 7438383870) O2 sat peak (test 98 % code = 7800416250) Nuc Stress EF (test 63 % code = 6574892726) Radiology Study observation (narrative) (test code = 75519-8) MOE (test code = MOE) Conclusion: Abnormal [...] The resting administration time was at 10:07 PER DIEM on 04/17/2022. Resting images obtained at 11:22 PER DIEM. Images performed at stress after an injection of 30.5 mCi. The stress administration time was at 12:20 PER DIEM on 04/17/2022. Stress images obtained at 13:36 PER DIEM.Nuclear Study QualityA perfusion 1-day rest/stress protocol was [...] Scores: SDS Score: N/A Percentage Abnormal: N/A [facility] [id number] 21:15:16 Test Item Value Reference Range Interpretation Comments Resting HR (test code 99 = 5290970035) Resting BP (test code 112&70 = 1942631596) Peak MET Achieved 1.0 (test code = 2386018010) Protocol Name (test LEXISCAN code = 1312042984) Time in Exercise Phase 00:00:53 (test code = 1411106905) Max Systolic BP (test 112 code = 0186473723) Max Diastolic BP (test 70 code = 5114500497) Max Heart Rate (test 113 code = 6102500697) Max Predicted Heart 166 Rate (test code = 7901395193) Target HR Formula (220 - Age)*100% (test code = 3113179218) Test Indication (test code = 9574178353) Arrhy During Ex (test none code = 4577902765) ECG Interp Before EX atrial fibrillation (test code = 4909669473) ECG Interp During Ex NONSPECIFIC (test code = 2714503868) Ex Summary Comment Myoview to follow (test code = 3881115040) Chest Pain Statement none (test code = 4266052090) Overall HR Response to PHARMACOLOGIC STRESS Exercise (test code = 8038703634) Overall BP Response To normal resting BP - Exercise (test code = appropriate response 8212486932) Reason for Termination Protocol completed (test code = 3160058463) Stress Test Impression MYOVIEW TO (test code = FOLLOW--Electronically 1677578348) Signed By Jaspreet Cannon MD ([id number]) on 04/18/2022 3:15:13 PM [facility] [id number] 21:15:16 Test Item Value Reference Range Interpretation Comments Resting HR (test code 99 = 4989786334) Resting BP (test code 112&70 = 1612649087) Peak MET Achieved 1.0 (test code = 6504614667) Protocol Name (test LEXISCAN code = 0425606685) Time in Exercise Phase 00:00:53 (test code = 9445218714) Max Systolic BP (test 112 code = 6061209759) Max Diastolic BP (test 70 code = 9774075049) Max Heart Rate (test 113 code = 2641936599) Max Predicted Heart 166 Rate (test code = 1004337238) Target HR Formula (220 - Age)*100% (test code = 3993593056) Test Indication (test code = 3241551889) Arrhy During Ex (test none code = 9174343160) ECG Interp Before EX atrial fibrillation (test code = 8798210126) ECG Interp During Ex NONSPECIFIC (test code = 7343301639) Ex Summary Comment Myoview to follow (test code = 6783936528) Chest Pain Statement none (test code = 5170050271) Overall HR Response to PHARMACOLOGIC STRESS Exercise (test code = 7152556630) Overall BP Response To normal resting BP - Exercise (test code = appropriate response 2074812485) Reason for Termination Protocol completed (test code = 1324745672) Stress Test Impression MYOVIEW TO (test code = FOLLOW--Electronically 0890652518) Signed By Jaspreet Cannon MD ([id number]) on 04/18/2022 3:15:13 PM [facility], (w Contrast, Strain and 3D if needed)2022-04-14 21:07:42 Test Item Value Reference Interpretation Comments Range EF (test code = 59 % 52-72 0108449590) LV EF,BP (test code 57.09 % = 8897988379) IVS,d (test code = 1.13 cm 0.6-1 A 1238617336) IVS s 2D (test code 1.32 cm = 0442720248) LVPWD,d (test code 1.09 cm 0.60-1.19 = 3202247715) LVPW s PLAX (test 1.37 cm code = 9043328931) LV,s (test code = 3.04 cm 9665695447) LVOT Diam,S (test 2.09 cm code = 2839891433) LV ANDERSON VOL (test 88.75 ml 62-150 code = 5976974554) LV SYS VOL (test 36.02 ml 21-61 code = 4807671452) LV Vol,d A2C (test 82.11 mL code = 1533510515) LV Vol,s A2C (test 34.60 mL code = 8485053287) LV Vol,d A4C (test 81.73 ml code = 8585700691) LV Vol,s A4C (test 37.26 ml code = 1130260927) MV Peak E Quirino (test 0.89 m/s code = 3324803139) MV Peak A Quirino (test 0.25 m/s code = 9714205205) E/A ratio (test 3.56 <=0.8 A code = 6419674837) E wave decelartion 177.02 See_Comment A [Automat ed time (test code = message] T he 5312115748) system which generated this result transmitted reference range: 200 msec. The reference range was not used to interpret this result as normal/abnormal . LV Systolic Volume 17.13 mL/m2 11-31 Index (test code = 8788448588) LV Diastolic Volume 40.65 mL/m2 34-74 Index (test code = 2481031452) LV,d (test code = 4.42 cm 0954862288) IVS/LVPW,2D (test 1.03 code = 3228127810) LV EF,2D (test code 67.66 % = 6067318211) LV FS Cube 2D (test 31.36 code = 3309862246) LV FS Teich 2D 31.36 (test code = 4372815709) LV SI Teich 2D 26.07 ml/m2 (test code = 4569614288) LV SV Teich 2D 52.72 ml (test code = 8693084569) LV Vol s Teich PSAX 36.02 ml (test code = 9437125292) LVOT stroke volume 0.48 cm3 (test code = 2956470738) Left Atrium 3.37 cm <=4 Dimension Anterior (test code = 9200455643) LA Vol MOD A4C 44.03 ml (test code = 6329788942) LA area s A4C (test 16.42 cm2 code = 4377930357) LVOT area (test 3.43 cm2 code = 1423486233) LVOT Vmax (test 0.86 m/s code = 4122794689) AoV Mean PG (test 3.31 See_Comment [Automate d code = 5049509714) message] The system which generated this result transmitted reference range: 20 mmHg. The reference range was not used to interpret this result as normal/abnormal . AoV Peak PG (test 4.75 mmHg code = 3871944735) AV LVOT peak 2.89 mmHg gradient (test code = 0105636606) AoV area i VTI BSA 1.33 cm2/m2 >=0.85 [place] (test code = 9671935687) AoV Area, Vmax 2.67 cm2 >=1.5 (test code = 6880736884) LVOT VTI (CM) (test 14.00 cm code = 6747048223) AoV Vmax (test code 1.11 m/s = 9360493577) AoV Vmn (test code 0.88 m/s = 4614166156) AoV Area, VTI (test 2.69 cm2 code = 3197876853) LVOT CO (test code 5.03 l/min = 2213075106) LVOT CI (test code 2.49 l/min/m2 = 4352635029) LVOT HR for LVOT CO 113.01 bpm (test code = 9890343246) LVOT SI (test code 22.01 ml/m2 = 3529135397) Velocity Ratio 0.77 m/s (V1/V2) (test code = 4689) MV stenosis 41.13 ms <=150 pressure 1/2 time (test code = 0950693936) MV E A ratio (test 6.25 code = 5190484168) MV valve area p 1/2 5.35 cm2 method (test code = 7351159364) E prime lat (test 0.04 code = 5167646369) E prime sept (test 0.03 code = 0025069180) RVOT Vmax (test 0.87 m/s code = 5020190882) PV Pk Grad (test 2.43 See_Comment [Automated code = 9034812079) message] The system which generated this result transmitted reference range: 36 mmHg. The reference range was not used to interpret this result as normal/abnormal . RVOT pk grad (test 3.02 mmHg code = 8718273664) PV VMAX (test code 0.78 m/s <=3 = 1971228567) Ao Root Diameter 2.77 cm <=3.99 (test code = 6532744973) Ao Root Diameter 2.77 cm (test code = 0281954919) Ascending aorta 2.95 cm (test code = 0482753384) BSA (test code = 2.02 m2 0347807060) BSA Rashid (test code 2.11 m2 = 3718720673) BSA [place] (test 2.10 m2 code = 5499799215) Pred METS R1 (test 9.76 code = 5866195329) Pred Exer Dur R1 9.49 (test code = 2093083211) MV Decel slope 5.02 m/s2 (test code = 6197109397) LVPW pct thck PLAX 25.29 % (test code = 3519772102) LV vol s cube 2D 27.97 ml (test code = 7059585570) LV vol d cube 2D 86.49 ml (test code = 1896671901) LV SV Cube 2D (test 58.52 ml code = 7406461461) LV SI Cube 2D (test 28.94 ml/m2 code = 6003649293) IVS pct thck PLAX 16.96 % (test code = 9458790320) Calc MPHR (test 165.08 bpm code = 1708565940) AoV area I VMN bsa 1.20 cm2/m2 (test code = 8601729799) 85 of MPHR (test 140.32 code = 2472020876) RVOT VTI (test code 0.14 m = 8439180709) RVOT Vmn (test code 0.59 m/s = 4939986328) RVOT mean grad 1.54 mmHg (test code = 8831791547) LVOT mean grad 1.67 mmHg (test code = 1954822850) Aov area Vmn (test 2.42 cm2 code = 6663230389) Pt Wt (test code = 90.72 8761584208) Pt Size (test code 170.18 = 1056515497) MV AE ratio (test 0.16 code = 6368919648) LVOT Vmn (test code 0.61 = 8489326656) PV Vmn (test code = 17.84 m/s 4497622247) LV Vol Index s 41.57 ml/m2 bpmod BSA [place] (test code = 1990808290) LV SI MOD BP BSA 23.73 ml/m2 [place] (test code = 3057592869) BMI (test code = 31.32 kg/m2 1011825086) LV Vol,s BP (test 36.07 nl code = 3546812397) LV Vol,d BP (test 84.05 ml code = 5614168574) LV SV,BP (test code 47.99 % = 5402245184) LV SV,A4C (test 44.47 % code = 1482746225) LV SV,A2C (test 47.51 % code = 9945199457) [place],s A4C 6.78 cm (test code = 0245638479) [place],s A2C 6.94 cm (test code = 0558717041) [place],d A4C 7.48 cm (test code = 5449565423) [place],d A2C 7.91 cm (test code = 9744943825) LV EF,A4C (test 54.41 % code = 8150670596) LV EF,A2C (test 57.86 % code = 9798938868) AoV VTI (test code 0.16 m = 7686104219) LVOT VTI (test code 0.14 m = 6078973631) MOE (test code = MOE) Left Ventricle: [...] status. Lab Interpretation Abnormal (test code = 27777-0) [facility] (w Contrast, Strain and 3D if needed)2022-04-14 21:07:42 Test Item Value Reference Interpretation Comments Range EF (test code = 59 % 52-72 4767712820) LV EF,BP (test code 57.09 % = 0757391809) IVS,d (test code = 1.13 cm 0.6-1 A 2742801480) IVS s 2D (test code 1.32 cm = 8150267629) LVPWD,d (test code 1.09 cm 0.60-1.19 = 6561565729) LVPW s PLAX (test 1.37 cm code = 2169027296) LV,s (test code = 3.04 cm 6712711379) LVOT Diam,S (test 2.09 cm code = 5598769486) LV ANDERSON VOL (test 88.75 ml 62-150 code = 4806228983) LV SYS VOL (test 36.02 ml 21-61 code = 5872665667) LV Vol,d A2C (test 82.11 mL code = 4625706084) LV Vol,s A2C (test 34.60 mL code = 4090323739) LV Vol,d A4C (test 81.73 ml code = 4690513704) LV Vol,s A4C (test 37.26 ml code = 5486449341) MV Peak E Quirino (test 0.89 m/s code = 0853617522) MV Peak A [place] (test 0.25 m/s code = 8513965724) E/A ratio (test 3.56 <=0.8 A code = 7781280120) E wave decelartion 177.02 See_Comment A [Automat ed time (test code = message] T he 2469975051) system which generated this result transmitted reference range: 200 msec. The reference range was not used to interpret this result as normal/abnormal . LV Systolic Volume 17.13 mL/m2 11-31 Index (test code = 3337488998) LV Diastolic Volume 40.65 mL/m2 34-74 Index (test code = 1708318829) LV,d (test code = 4.42 cm 6856390257) IVS/LVPW,2D (test 1.03 code = 4213283639) LV EF,2D (test code 67.66 % = 7887876597) LV FS Cube 2D (test 31.36 code = 9392159165) LV FS Teich 2D 31.36 (test code = 6786611308) LV SI Teich 2D 26.07 ml/m2 (test code = 2371793984) LV SV Teich 2D 52.72 ml (test code = 2200535241) LV Vol s Teich PSAX 36.02 ml (test code = 3877394325) LVOT stroke volume 0.48 cm3 (test code = 4300173743) Left Atrium 3.37 cm <=4 Dimension Anterior (test code = 6327536928) LA Vol MOD A4C 44.03 ml (test code = 3718983971) LA area s A4C (test 16.42 cm2 code = 7439183970) LVOT area (test 3.43 cm2 code = 1680809441) LVOT Vmax (test 0.86 m/s code = 4534155936) AoV Mean PG (test 3.31 See_Comment [Automate d code = 0345681918) message] The system which generated this result transmitted reference range: 20 mmHg. The reference range was not used to interpret this result as normal/abnormal . AoV Peak PG (test 4.75 mmHg code = 9934236782) AV LVOT peak 2.89 mmHg gradient (test code = 1121831274) AoV area i VTI BSA 1.33 cm2/m2 >=0.85 [place] (test code = 2980530196) AoV Area, Vmax 2.67 cm2 >=1.5 (test code = 0743267146) LVOT VTI (CM) (test 14.00 cm code = 0301902456) AoV Vmax (test code 1.11 m/s = 3430486765) AoV Vmn (test code 0.88 m/s = 2847122364) AoV Area, VTI (test 2.69 cm2 code = 2670637436) LVOT CO (test code 5.03 l/min = 4897914912) LVOT CI (test code 2.49 l/min/m2 = 1110599586) LVOT HR for LVOT CO 113.01 bpm (test code = 6115673549) LVOT SI (test code 22.01 ml/m2 = 0706005579) Velocity Ratio 0.77 m/s (V1/V2) (test code = 4689) MV stenosis 41.13 ms <=150 pressure 1/2 time (test code = 7119515314) MV E A ratio (test 6.25 code = 7833590462) MV valve area p 1/2 5.35 cm2 method (test code = 5106795516) E prime lat (test 0.04 code = 5233067527) E prime sept (test 0.03 code = 3273619166) RVOT Vmax (test 0.87 m/s code = 8958830689) PV Pk Grad (test 2.43 See_Comment [Automated code = 9521329344) message] The system which generated this result transmitted reference range: 36 mmHg. The reference range was not used to interpret this result as normal/abnormal . RVOT pk grad (test 3.02 mmHg code = 8792921485) PV VMAX (test code 0.78 m/s <=3 = 8382804609) Ao Root Diameter 2.77 cm <=3.99 (test code = 4035977265) Ao Root Diameter 2.77 cm (test code = 4783596537) Ascending aorta 2.95 cm (test code = 1110378305) BSA (test code = 2.02 m2 5669807112) BSA Rashid (test code 2.11 m2 = 2104155440) BSA [place] (test 2.10 m2 code = 6325961719) Pred METS R1 (test 9.76 code = 0873541429) Pred Exer Dur R1 9.49 (test code = 1841370368) MV Decel slope 5.02 m/s2 (test code = 8042703154) LVPW pct thck PLAX 25.29 % (test code = 3051324308) LV vol s cube 2D 27.97 ml (test code = 2004801599) LV vol d cube 2D 86.49 ml (test code = 9615422188) LV SV Cube 2D (test 58.52 ml code = 9178475867) LV SI Cube 2D (test 28.94 ml/m2 code = 6924677388) IVS pct thck PLAX 16.96 % (test code = 0225207798) Calc MPHR (test 165.08 bpm code = 7818022396) AoV area I VMN bsa 1.20 cm2/m2 (test code = 7685944488) 85 of MPHR (test 140.32 code = 3045333350) RVOT VTI (test code 0.14 m = 1781470250) RVOT Vmn (test code 0.59 m/s = 7895440410) RVOT mean grad 1.54 mmHg (test code = 8208104587) LVOT mean grad 1.67 mmHg (test code = 7079137007) Aov area Vmn (test 2.42 cm2 code = 5709930548) Pt Wt (test code = 90.72 5812564248) Pt Size (test code 170.18 = 2443042956) MV AE ratio (test 0.16 code = 0472696151) LVOT Vmn (test code 0.61 = 5470839183) PV Vmn (test code = 17.84 m/s 1623582972) LV Vol Index s 41.57 ml/m2 bpmod BSA [place] (test code = 9203288941) LV SI MOD BP BSA 23.73 ml/m2 [place] (test code = 4236073962) BMI (test code = 31.32 kg/m2 4409567081) LV Vol,s BP (test 36.07 nl code = 6921433105) LV Vol,d BP (test 84.05 ml code = 1324357998) LV SV,BP (test code 47.99 % = 5089468353) LV SV,A4C (test 44.47 % code = 0515098852) LV SV,A2C (test 47.51 % code = 2486699728) [place],s A4C 6.78 cm (test code = 3831657267) [place],s A2C 6.94 cm (test code = 4595336237) [place],d A4C 7.48 cm (test code = 3620304618) [place],d A2C 7.91 cm (test code = 8961700369) LV EF,A4C (test 54.41 % code = 5724697345) LV EF,A2C (test 57.86 % code = 7716146530) AoV VTI (test code 0.16 m = 0325514427) LVOT VTI (test code 0.14 m = 0679178864) MOE (test code = MOE) Left Ventricle: [...] status. Lab Interpretation Abnormal (test code = 21800-9) Yarsani TmsinkllLWMF-QhN-2 (COVID-19) RNA [Presence] in Respiratory specimen by LEILANI with probe [id number] 05:21:05 Test Item Value Reference Range Interpretation Comments SARS-CoV-2 (COVID-19) RNA Not detected [Presence] in Respiratory specimen by LEILANI with probe detection (test code = 56031-4) Whether patient is employed in a Unknown healthcare setting (test code = 98046-2) Whether the patient has symptoms Unknown related to condition of interest (test code = 19486-1) Whether the patient was Unknown hospitalized for condition of interest (test code = 55738-8) Whether the patient was admitted Unknown to intensive care unit (ICU) for condition of interest (test code = 09719-7) Whether patient resides in a Unknown congregate care setting (test code = 87131-0) status (test code = Unknown 52100-2) Date and time of symptom onset Unknown (test code = 26734-8) [facility] ED Preliminary Interpretation - Not an [id number] 21:56:45 Test Item Value Reference Range Interpretation Comments MOE (test code = MOE) Fortino Lozano MD 04/12/2022 9:18 [facility] Preliminary Interpretation - Not an OrderPerformed by: Fortino Lozano MDAuthorized by: Fortino Lozano MD ECG reviewed by ED Physician in the absence of a professor of surgery: yes Interpretation: Interpretation: abnormal Rate: ECG rate: 116 ECG rate assessment: tachycardic Rhythm: Rhythm: sinus tachycardia Ectopy: Ectopy: none QRS: QRS axis: Left QRS intervals: NormalConduction: Conduction: abnormal Abnormal conduction: complete RBBB ST segments: ST segments: NormalT waves: T waves: normal Comments: Similar to 10/10 Lab Interpretation Abnormal (test code = 57916-2) [facility] ED Preliminary Interpretation - Not an [id number] 21:56:45 Test Item Value Reference Range Interpretation Comments MOE (test code = MOE) Fortino Lozano MD 04/12/2022 9:18 [facility] Preliminary Interpretation - Not an OrderPerformed by: Fortino Lozano MDAuthorized by: Fortino Lozano MD ECG reviewed by ED Physician in the absence of a professor of surgery: yes Interpretation: Interpretation: abnormal Rate: ECG rate: 116 ECG rate assessment: tachycardic Rhythm: Rhythm: sinus tachycardia Ectopy: Ectopy: none QRS: QRS axis: Left QRS intervals: NormalConduction: Conduction: abnormal Abnormal conduction: complete RBBB ST segments: ST segments: NormalT waves: T waves: normal Comments: Similar to 10/10 Lab Interpretation Abnormal (test code = 02323-9) [facility] Preliminary Interpretation - Not an [id number] 21:56:45 Test Item Value Reference Range Interpretation Comments MOE (test code = MOE) Fortino Lozano MD 04/12/2022 9:18 [facility] Preliminary Interpretation - Not an OrderPerformed by: Fortino Lozano MDAuthorized by: Fortino Lozano MD ECG reviewed by ED Physician in the absence of a professor of surgery: yes Interpretation: Interpretation: abnormal Rate: ECG rate: 116 ECG rate assessment: tachycardic Rhythm: Rhythm: sinus tachycardia Ectopy: Ectopy: none QRS: QRS axis: Left QRS intervals: NormalConduction: Conduction: abnormal Abnormal conduction: complete RBBB ST segments: ST segments: NormalT waves: T waves: normal Comments: Similar to 10/10 Lab Interpretation Abnormal (test code = 73516-7) [facility] ED Preliminary Interpretation - Not an [id number] 21:56:45 Test Item Value Reference Range Interpretation Comments MOE (test code = MOE) Fortino Lozano MD 04/12/2022 9:18 [facility] Preliminary Interpretation - Not an OrderPerformed by: Fortino Lozano MDAuthorized by: Fortino Lozano MD ECG reviewed by ED Physician in the absence of a professor of surgery: yes Interpretation: Interpretation: abnormal Rate: ECG rate: 116 ECG rate assessment: tachycardic Rhythm: Rhythm: sinus tachycardia Ectopy: Ectopy: none QRS: QRS axis: Left QRS intervals: NormalConduction: Conduction: abnormal Abnormal conduction: complete RBBB ST segments: ST segments: NormalT waves: T waves: normal Comments: Similar to 10/10 Lab Interpretation Abnormal (test code = 81804-1) [facility] ED Preliminary Interpretation - Not an [id number] 21:56:45 Test Item Value Reference Range Interpretation Comments MOE (test code = MOE) Fortino Lozano MD 04/12/2022 9:18 [facility] Preliminary Interpretation - Not an OrderPerformed by: Fortino Lozano MDAuthorized by: Fortino Lozano MD ECG reviewed by ED Physician in the absence of a professor of surgery: yes Interpretation: Interpretation: abnormal Rate: ECG rate: 116 ECG rate assessment: tachycardic Rhythm: Rhythm: sinus tachycardia Ectopy: Ectopy: none QRS: QRS axis: Left QRS intervals: NormalConduction: Conduction: abnormal Abnormal conduction: complete RBBB ST segments: ST segments: NormalT waves: T waves: normal Comments: Similar to 10/10 Lab Interpretation Abnormal (test code = 96304-1) [facility] ED Preliminary Interpretation - Not an [id number] 21:56:45 Test Item Value Reference Range Interpretation Comments MOE (test code = MOE) Fortino Lozano MD 04/12/2022 9:18 [facility] Preliminary Interpretation - Not an OrderPerformed by: Fortino Lozano MDAuthorized by: Fortino Lozano MD ECG reviewed by ED Physician in the absence of a professor of surgery: yes Interpretation: Interpretation: abnormal Rate: ECG rate: 116 ECG rate assessment: tachycardic Rhythm: Rhythm: sinus tachycardia Ectopy: Ectopy: none QRS: QRS axis: Left QRS intervals: NormalConduction: Conduction: abnormal Abnormal conduction: complete RBBB ST segments: ST segments: NormalT waves: T waves: normal Comments: Similar to 10/10 Lab Interpretation Abnormal (test code = 48729-5) [facility] ED Preliminary Interpretation - Not an [id number] 21:56:45 Test Item Value Reference Range Interpretation Comments MOE (test code = MOE) Fortino Lozano MD 04/12/2022 9:18 [facility] Preliminary Interpretation - Not an OrderPerformed by: Fortino Lozano MDAuthorized by: Fortino Lozano MD ECG reviewed by ED Physician in the absence of a professor of surgery: yes Interpretation: Interpretation: abnormal Rate: ECG rate: 116 ECG rate assessment: tachycardic Rhythm: Rhythm: sinus tachycardia Ectopy: Ectopy: none QRS: QRS axis: Left QRS intervals: NormalConduction: Conduction: abnormal Abnormal conduction: complete RBBB ST segments: ST segments: NormalT waves: T waves: normal Comments: Similar to 10/10 Lab Interpretation Abnormal (test code = 51875-7) [facility] GrantUhbnqwinXQYJ-IhA-6 (COVID-19) RNA [Presence] in Respiratory specimen by LEILANI with probe [id number] 10:09:09 Test Item Value Reference Range Interpretation Comments SARS-CoV-2 (COVID-19) RNA Not detected [Presence] in Respiratory specimen by LEILANI with probe detection (test code = 68261-0) Whether patient is employed in a Unknown healthcare setting (test code = 11824-6) Whether the patient has symptoms Unknown related to condition of interest (test code = 99333-9) Whether the patient was Unknown hospitalized for condition of interest (test code = 36054-1) Whether the patient was admitted Unknown to intensive care unit (ICU) for condition of interest (test code = 01560-9) Whether patient resides in a Unknown congregate care setting (test code = 70219-2) status (test code = Unknown 88426-4) Date and time of symptom onset Unknown (test code = 71965-9) [facility] [facility] Test Item Value Reference Range Interpretation Comments GLUBED (test code = 170 mg/dL 74-106 H Performe d by certified GLUBED) 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 [facility] [id number] 21:00:00 Test Item Value Reference Range Interpretation Comments GLUBED (test code = 185 mg/dL 74-106 H Performe d by certified GLUBED) 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 [facility] [id number] 15:40:00 Test Item Value Reference Range Interpretation Comments GLUBED (test code = 167 mg/dL 74-106 H Performe d by certified GLUBED) 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 [facility] [id number] 11:13:00 Test Item Value Reference Range Interpretation Comments GLUBED (test code = 212 mg/dL 74-106 H Performe d by certified GLUBED) 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 [facility] [id number] 08:09:00 Test Item Value Reference Range Interpretation Comments GLUBED (test code = 91 mg/dL 74-106 N Performe d by certified GLUBED) 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 [facility] [id number] 20:51:00 Test Item Value Reference Range Interpretation Comments GLUBED (test code = 155 mg/dL 74-106 H Performe d by certified GLUBED) 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 [facility] [id number] 15:53:00 Test Item Value Reference Range Interpretation Comments GLUBED (test code = 130 mg/dL 74-106 H Performe d by certified GLUBED) 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 [facility] [id number] 11:15:00 Test Item Value Reference Range Interpretation Comments GLUBED (test code = 195 mg/dL 74-106 H Performe d by certified GLUBED) 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 [facility] [id number] 07:48:00 Test Item Value Reference Range Interpretation Comments GLUBED (test code = 142 mg/dL 74-106 H Performe d by certified GLUBED) 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 [facility] BASIC METABOLIC [id number] 07:09:00 Test Item Value Reference Range Interpretation [...] Modifi ed MDRD (test code = GFR) formula.[facility] kidney disease is defined as eith er kidney damageor GFR <60 mL/min/1.73 m2 for >3 months. [Automated mess age] The system [employer] generated this result transmitted ref erence range: >=60. Th e reference range was not used to int erpret this result as normal/abnormal . CREATININE (test 0.80 mg/dL 0.7-1.3 N code = CREAT) BUN/CREATININE RATIO 7.6 10-20 L (test code = BUN/CREA) CALCIUM (test code = 8.6 mg/dL 8.5-10.1 N CA) CBC W/AUTO [id number] 06:52:00 Test Item Value Reference Range Interpretation [...] DIFF REQUIRED (test code NO = MDIFF) [id number] 20:15:00 Test Item Value Reference Range Interpretation Comments GLUBED (test code = 227 mg/dL 74-106 H Performe d by certified GLUBED) 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 [facility] [id number] 15:49:00 Test Item Value Reference Range Interpretation Comments GLUBED (test code = 191 mg/dL 74-106 H Performe d by certified GLUBED) 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 [facility] [id number] 10:43:00 Test Item Value Reference Range Interpretation Comments GLUBED (test code = 362 mg/dL 74-106 H Performe d by certified GLUBED) 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 [facility] [id number] 08:01:00 Test Item Value Reference Range Interpretation Comments GLUBED (test code = 203 mg/dL 74-106 H Performe d by certified GLUBED) 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 [facility] BASIC METABOLIC [id number] 02:21:00 Test Item Value Reference Range Interpretation [...] ed MDRD (test code = GFR) formula. ronic kidney disease is defined as eith er kidney damageor GFR <60 mL/min/1.73 m2 for >3 months. [Automated mess age] The system [employer] generated this result transmitted ref erence range: >=60. Th e reference range was not used to int erpret this result as normal/abnormal . CREATININE (test 0.70 mg/dL 0.7-1.3 N code = CREAT) BUN/CREATININE RATIO 11.6 10-20 N (test code = BUN/CREA) CALCIUM (test code = 8.2 mg/dL 8.5-10.1 L CA) CBC W/AUTO [id number] 02:17:00 Test Item Value Reference Range Interpretation [...] = 0.00 K/mm3 0.0-0.1 N NRBC#) VANCOMYCIN [id number] 22:07:00 Test Item Value Reference Range Interpretation Comments VANCOMYCIN TROUGH (test code = 10.5 ug/mL 10-20 N VANCT) [id number] 20:15:00 Test Item Value Reference Range Interpretation Comments GLUBED (test code = 185 mg/dL 74-106 H Performe d by certified GLUBED) 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 [facility] [id number] 16:48:00 Test Item Value Reference Range Interpretation Comments GLUBED (test code = 280 mg/dL 74-106 H Performe d by certified GLUBED) 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 [facility] [id number] 13:00:00 Test Item Value Reference Range Interpretation Comments GLUBED (test code = 226 mg/dL 74-106 H Performe d by certified GLUBED) 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 [facility] [id number] 11:29:00 Test Item Value Reference Range Interpretation Comments GLUBED (test code = 246 mg/dL 74-106 H Performe d by certified GLUBED) 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 [facility] [id number] 10:34:00 Test Item Value Reference Range Interpretation Comments GLUBED (test code = 227 mg/dL 74-106 H Performe d by certified GLUBED) 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 [facility] [id number] 10:34:00 Test Item Value Reference Range Interpretation Comments GLUBED (test code = 256 mg/dL 74-106 H Performe d by certified GLUBED) 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 [facility] [id number] 10:34:00 Test Item Value Reference Range Interpretation Comments GLUBED (test code = 213 mg/dL 74-106 H Performe d by certified GLUBED) 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 [facility] [id number] 03:23:00 Test Item Value Reference Range Interpretation Comments GLYCOSYLATED HEMOGLOBIN 13.1 % HbA1 SUGG ESTED (HA1C) (test code = DIAGNOSI S: HbA1C [...] is a direct measurement.=== ====== BASIC METABOLIC [id number] 18:01:00 Test Item Value Reference Range Interpretation [...] >3 months. [Automated mess age] The system [employer] generated this result transmitted ref erence range: >=60. Th e reference range was not used to int erpret this result as normal/abnormal . CREATININE (test 0.80 mg/dL 0.7-1.3 N code = CREAT) BUN/CREATININE RATIO 14.1 10-20 N (test code = BUN/CREA) CALCIUM (test code = 8.3 mg/dL 8.5-10.1 L CA) [id number] 18:01:00 Test Item Value Reference Range Interpretation Comments PHOSPHORUS (test code = PHOS) 2.8 mg/dL 2.5-4.9 N [id number] 18:01:00 Test Item Value Reference Range Interpretation Comments MAGNESIUM (test code = MAG) 1.7 mg/dL 1.8-2.4 L THYROID STIMULATING [id number] 18:01:00 Test Item Value Reference Range Interpretation Comments THYROID STIMULATING 0.667 uIU/mL 0.36-3.74 N TSH REFE RENCE HORMONE (test code = RANGES: EUTHYROID: TSH) 0.35 - 4.3 mIU/ mL HYPO : > 5.5 mI U/mL HYPER : < 0.35 mIU/mL CBC W/AUTO [id number] 18:00:00 Test Item Value Reference Range Interpretation [...] = 0.00 K/mm3 0.0-0.1 N NRBC#) LACTIC [id number] 14:22:00 Test Item Value Reference Range Interpretation Comments LACTIC ACID (test code = LACT) 1.3 mmol/L 0.4-1.9 N - XR TIBIA/FIBULA 2 V [id number] 12:37:00 [facility]Name: HARJINDER COLUNGA : 1965 Sex: M FAX: Jerry Roa MD [phone] [place]: [address] St: REG Name: HARJINDER CLOUNGA [facility] : 1965 Age/S: 56/M [address] Unit #: [id number] Loc: [place] [address] Phys: Jerry Roa MD Acct: [id number] Dis Date: Status: REG ER PHONE #: [phone] Exam Date: 12/31/2021 1226 FAX #: [phone] Reason: leg redness EXAMS: CPT CODE: [id number] XR TIBIA/FIBULA [place] [address] REASON FOR EXAM: leg rednessEXAM ORDER DATE: 12/31/2021 11:19 AM Ordering M.D.: [...] appear edematous. Correlate with physical exam. Location[facility] ElectronicallySigned by Magan Rae MD on 12/31/2021 at 1237 Reported and signed by: Magan Rae MD CC: Jerry Roa MD Technologist: FORTINO SOSA RT(R) Trnscrd Date/Time/By: 12/31/2021 (5461) : By: [email or web address] Orig Print D/T: S: 12/31/2021 (9799) PAGE 1 Signed Report- XR KNEE 3 V [id number] 12:37:00 [facility] ([facility]Name: HARJINDER COLUNGA : 1965 Sex: M FAX: Jerry Roa MD [phone] [place]: St: REG Name: HARJINDER COLUNGA [facility] : 1965 Age/S: 56/M [address] [facility] Unit #: [id number] Loc: [place] [address] Phys: Jerry Roa MD Acct: [id number] Dis Date: Status: REG ER PHONE #: [phone] Exam Date: 12/31/2021 1226 FAX #: [phone] Reason: leg redness EXAMS: CPT CODE: [id number] XR KNEE 3 V LT [address] REASON FOR EXAM: leg redness EXAMORDER DATE: [...] appear edematous. Correlate with physical exam. Location: [facility] at 1237 Reported and signed by: Magan Rae MD CC: Jerry Roa MD Technologist: FORTINO SOSA, RT(R) Trnscrd Date/Time/By: 12/31/2021 (3353) : By: [email or web address] Orig Print D/T: S: 12/31/2021 (4250) PAGE 1 Signed ReportBASIC METABOLIC [id number] 12:10:00 Test Item Value Reference Range Interpretation [...] >3 months. [Automated mess age] The system [employer] generated this result transmitted ref erence range: >=60. Th e reference range was not used to int erpret this result as normal/abnormal . CREATININE (test code 1.00 mg/dL 0.7-1.3 N = CREAT) BUN/CREATININE RATIO 10.8 10-20 N (test code = BUN/CREA) CALCIUM (test code = 8.8 mg/dL 8.5-10.1 N CA) HEPATIC FUNCTION [id number] 12:10:00 Test Item Value Reference Range Interpretation [...] due ALKP) to change in reagent. LACTIC [id number] 12:08:00 Test Item Value Reference Range Interpretation Comments LACTIC ACID (test 2.1 mmol/L 0.4-1.9 HH Results ca lled to code = LACT) [id number] by [facility] 4988 12/31/21 1208Cr itical results verifie d and read back by Nu rse? Y FOR ALL ICU PATIENT EXCLUDING HOLD PLEASE CALL [phone] CBC W/AUTO [id number] 11:58:00 Test Item Value Reference Range Interpretation [...] = 0.00 K/mm3 0.0-0.1 N NRBC#) POC [id number] 16:17:00 Test Item Value Reference Range Interpretation Comments POC glucose (test code 238 mg/dL 65-100 H Opera tor Name: Sherice = 13070-9) FrancoDevice ID : [id number] Lab Interpretation Abnormal (test code = 84925-5) [facility] [id number] 16:17:00 Test Item Value Reference Range Interpretation Comments POC glucose (test code 238 mg/dL 65-100 H Opera tor Name: Sherice = 12139-2) FrancoDevice ID : [id number] Lab Interpretation Abnormal (test code = 57394-8) [facility]2022-08-24 11:12:00 Test Item Value Reference Range Interpretation Comments Urine culture Mixed yadi Specimen isolate (test <=10-3 col/cc InformationSp ecimen code = 69990-3) Source: [facility] Site: [facility]2022-08-24 11:12:00 Test Item Value Reference Range Interpretation Comments Urine culture Mixed yadi Specimen isolate (test <=10-3 col/cc InformationSp ecimen code = 41173-7) Source: [facility] Site: [facility]2022-08-24 11:12:00 Test Item Value Reference Range Interpretation Comments Urine culture Mixed yadi Specimen isolate (test <=10-3 col/cc InformationSp ecimen code = 20042-4) [facility]2022-08-24 11:12:00 Test Item Value Reference Range Interpretation Comments Urine culture Mixed yadi Specimen isolate (test <=10-3 col/cc InformationSp ecimen code = 25133-1) Source: [facility] Site: [facility]2022-08-24 11:12:00 Test Item Value Reference Range Interpretation Comments Urine culture Mixed yadi Specimen isolate (test <=10-3 col/cc InformationSp ecimen code = 16463-8) Source: [facility] Site: [facility]2022-08-24 11:12:00 Test Item Value Reference Range Interpretation Comments Urine culture Mixed yadi Specimen isolate (test <=10-3 col/cc InformationSp ecimen code = 73897-4) Source: [facility] Site: [facility]2022-08-24 11:12:00 Test Item Value Reference Range Interpretation Comments Urine culture Mixed yadi Specimen isolate (test <=10-3 col/cc InformationSp ecimen code = 43530-9) Source: [facility] Site: [facility]2022-08-24 11:12:00 Test Item Value Reference Range Interpretation Comments Urine culture Mixed yadi Specimen isolate (test <=10-3 col/cc InformationSp ecimen code = 98919-9) Source: [facility] [id number] 11:12:00 Test Item Value Reference Range Interpretation Comments Urine culture Mixed yadi Specimen isolate (test <=10-3 col/cc InformationSp ecimen code = 94076-9) Source: [facility] RNA [Presence] in Respiratory specimen by LEILANI with probe [id number] 06:28:40 Test Item Value Reference Range Interpretation Comments SARS-CoV-2 (COVID-19) RNA Not detected [Presence] in Respiratory specimen by LEILANI with probe detection (test code = 19524-9) Whether patient is employed in a Unknown healthcare setting (test code = 77947-7) Whether the patient has symptoms Unknown related to condition of interest (test code = 74557-2) Whether the patient was Unknown hospitalized for condition of interest (test code = 72888-8) Whether the patient was admitted Unknown to intensive care unit (ICU) for condition of interest (test code = 91371-4) Whether patient resides in a Unknown congregate care setting (test code = 61607-2) status (test code = Unknown 24892-2) Date and time of symptom onset Unknown (test code = 14361-2) [facility] 12 [id number] 16:49:51 Test Item Value Reference Range Interpretation Comments Ventricular rate (test code = 253) Atrial rate (test code = 255) [place] interval (test code = 266) QRSD interval [...] for Inferior infarct are no longer present- [facility] 12 [id number] 16:49:51 Test Item Value Reference Range Interpretation Comments Ventricular rate (test code = 253) Atrial rate (test code = 255) [place] interval (test code = 266) QRSD interval [...] for Inferior infarct are no longer present- [facility] ED Preliminary Interpretation - Not an [id number] 04:49:00 Test Item Value Reference Range Interpretation Comments MOE (test code = MOE) Norberto Lanier FNP 10/11/2021 11:48 [facility] Interpretation - Not an OrderPerformed by: Norberto Lanier FNPAuthorized by: Fahad Anna MD ECG reviewed by ED Physician in the absence of a professor of surgery: yes Interpretation: Interpretation: abnormal Rate: ECG rate: 83 ECG rate assessment: normal Rhythm: Rhythm: sinus rhythm Ectopy: Ectopy: none QRS: QRS axis: Normal QRS intervals: WideConduction: Conduction: abnormal Abnormal conduction: complete RBBB and LAFB ST segments: ST segments: NormalT waves: T waves: non-specific Lab Interpretation Abnormal (test code = 40135-1) [facility] ED Preliminary Interpretation - Not an [id number] 04:49:00 Test Item Value Reference Range Interpretation Comments MOE (test code = MOE) Norberto Lanier FNP 10/11/2021 11:48 [facility] ED Preliminary Interpretation - Not an OrderPerformed by: Norberto Lanier FNPAuthorized by: Fahad Anna MD ECG reviewed by ED Physician in the absence of a professor of surgery: yes Interpretation: Interpretation: abnormal Rate: ECG rate: 83 ECG rate assessment: normal Rhythm: Rhythm: sinus rhythm Ectopy: Ectopy: none QRS: QRS axis: Normal QRS intervals: WideConduction: Conduction: abnormal Abnormal conduction: complete RBBB and LAFB ST segments: ST segments: NormalT waves: T waves: non-specific Lab Interpretation Abnormal (test code = 15236-1) Yarsani [id number] 18:34:00 Test Item Value Reference Range Interpretation Comments GLUBED (test code = 316 mg/dL 74-106 H Performe d by certified GLUBED) 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 Clean CatchDRUGS OF ABUSE SCREEN [id number] 17:45:00 Test Item Value Reference Range Interpretation Comments UR MDMA (test code = NEGATIVE NEGATIVE MDMAQLU) URN COCAINE (test code = NEGATIVE NEGATIVE [A utomated message] COCAURN) The system [employer] generated this result transmitted ref erence range: [...] NEGATIVE [A utomated message] OPIATURN) The system [employer] generated this result transmitted ref erence range: [...] [A utomated message] = METHAURN) The system [employer] generated this result transmitted ref erence range: <300 ng/ mL. The reference r maggi was not used to interpret this result as normal/abnor mal. Urine Source? Clean CatchBASIC METABOLIC [id number] 16:11:00 Test Item Value Reference Range Interpretation [...] >3 months. [Automated mess age] The system [employer] generated this result transmitted ref erence range: >=60. Th e reference range was not used to int erpret this result as normal/abnormal . CREATININE (test code 0.99 mg/dL 0.55-1.3 N = CREAT) BUN/CREATININE RATIO 15.2 10-20 N (test code = BUN/CREA) CALCIUM (test code = 8.1 mg/dL 8.0-10.5 N CA) [id number] 16:11:00 Test Item Value Reference Range Interpretation Comments TROPONIN-HS (test 5.1 pg/mL 0-60 N CAUTION: U nits of the code = TROPI) current test m ethodology (pg/mL)differ f rom the prior test meth odology (ng/mL) by a fa ctorof 1000. [id number] 16:11:00 Test Item Value Reference Range Interpretation [...] CH ARGE TO THE PATIENT. CBC W/O [id number] 15:42:00 Test Item Value Reference Range Interpretation [...] N = MPV) - XR CHEST 1 [id number] 15:42:00 [facility] ([facility]Name: HARJINDER COLUNGA : 1965 Sex: M FAX: Brennan Dupont [phone] [place]: [place] St: PRE Name: HARJINDER COLUNGA [facility] : 1965 Age/S: 56/M [address] [facility] N Unit #: [id number] Loc: [facility] [address] Phys: Brennan Dupont MD [place], [place] [address] Acct: [id number] Dis Date: Status: PRE ER PHONE #: Exam Date: 08/06/2021 1541 FAX #: Reason: WEAKNESS EXAMS: CPT CODE: [id number] XR CHEST 1 V 88056 REASON FOR EXAM: WEAKNESS Exam Order Date: [...] unchanged. IMPRESSION: No acute cardiopulmonary process. Location: [facility] at 1542 Reported and signed by: Ramu Ramos M.D. CC: Brennan Dupont MD Technologist: Jonathan Herndon RT(R)(CT) Trnscrd Date/Time/By: 08/06/2021 (2045) : By: [email or web address] Orig Print D/T: S: 08/06/2021(0159) PAGE 1 Signed ReportLone Star Glucose -- Point of Care Meters (41842)2021-06-29 00:00:00 Test Item Value Reference Range Interpretation Comments BLOOD GLUCOSE-HOME MONITOR (test code = 266 70-110 A 50656-6) [id number] 16:34:00 Test Item Value Reference Range Interpretation Comments TROPONIN-I (test code = TROPI) <0.015 ng/mL 0.00-0.056 N URINALYSIS [id number] 15:41:00 Test Item Value Reference Range Interpretation [...] HPF NONE BACU) Urine Source? Clean CatchURINALYSIS [id number] 15:39:00 Test Item Value Reference Range Interpretation [...] Urine Source? Clean Catch- CT HEAD/BRAIN W/O [id number] 13:23:00 [facility])Name: HARJINDER COLUNGA : 1965 Sex: M Name: HARJINDER COLUNGA [place] [facility] : 1965 Age/S: 55 / M [address] [facility] [address] Unit #: [id number] Loc: [address] Phys: Jerry Roa MD [place], [place] [address] Acct: [id number] Dis Date: Status: REG ER PHONE #: Exam Date: 12/24/2020 6341 FAX #: Reason: dizzy EXAMS: CPT CODE: [id number] CT HEAD/BRAIN W/O CONT 89578 HISTORY: dizzy TECHNIQUE: Noncontrast 2.5 mm axial [...] 1 Signed Report (CONTINUED) Name: HARJINDER COLUNGA [facility] : 1965 Age/S: 55 / M [address] [facility] Unit #: [id number] Loc: [address] Phys: Jerry Roa MD [place], [place] [address] Acct: [id number] Dis Date: Status: REG ER PHONE #: Exam Date: 12/24/2020 1305 FAX #: Reason: dizzy EXAMS: CPT CODE: [id number] CT HEAD/BRAIN W/O CONT 89860 (Continued) CC: Jerry Roa MD Technologist:Vicky Saba RT(R)(CT) CTDI: DLP: Trnscb Date/Time: 12/24/2020 (1323) [email or web address] Orig Print D/T: S: 12/24/2020 (1326) PAGE 2 Signed ReportBASIC METABOLIC [id number] 12:45:00 Test Item Value Reference Range Interpretation [...] >3 months. [Automated mess age] The system [employer] generated this result transmitted ref erence range: >=60. Th e reference range was not used to int erpret this result as normal/abnormal . CREATININE (test 0.77 mg/dL 0.55-1.3 N code = CREAT) BUN/CREATININE RATIO 20.8 10-20 H (test code = BUN/CREA) CALCIUM (test code = 8.1 mg/dL 8.0-10.5 N CA) [id number] 12:45:00 Test Item Value Reference Range Interpretation Comments TROPONIN-I (test code = TROPI) <0.015 ng/mL 0.00-0.056 N CREATINE KINASE (CK)2020-12-24 12:43:00 Test Item Value Reference Range Interpretation Comments CREATINE KINASE (CK) (test code = CK) 38 U/L 39-308 L BASIC METABOLIC [id number] 12:37:00 Test Item Value Reference Range Interpretation [...] >3 months. [Automated mess age] The system [employer] generated this result transmitted ref erence range: >=60. Th e reference range was not used to int erpret this result as normal/abnormal . CREATININE (test 0.77 mg/dL 0.55-1.3 N code = CREAT) BUN/CREATININE RATIO 20.8 10-20 H (test code = BUN/CREA) CALCIUM (test code = 8.1 mg/dL 8.0-10.5 N CA) [id number] 12:37:00 Test Item Value Reference Range Interpretation Comments TROPONIN-I (test code = TROPI) pg/mL 0-45 CBC W/O [id number] 12:33:00 Test Item Value Reference Range Interpretation [...] code 9.3 fL 6.7-11.0 N = MPV) [id number] 09:02:00 Test Item Value Reference Range Interpretation Comments GLUBED (test code = GLUBED) 96 MG/DL 74-106 N [id number] 20:42:00 Test Item Value Reference Range Interpretation Comments GLUBED (test code = GLUBED) 213 MG/DL 74-106 H [id number] 16:51:00 Test Item Value Reference Range Interpretation Comments GLUBED (test code = GLUBED) 209 MG/DL 74-106 H [id number] 15:04:00 Test Item Value Reference Range Interpretation Comments GLUBED (test code = GLUBED) 215 MG/DL 74-106 H [id number] 14:45:00 Test Item Value Reference Range Interpretation Comments ACT-ISTAT (test code = ACTI) 213 SEC 74-125 H [id number] 14:14:00 Test Item Value Reference Range Interpretation Comments ACT-ISTAT (test code = ACTI) 274 SEC 74-125 H [id number] 14:13:00 Test Item Value Reference Range Interpretation Comments ACT-ISTAT (test code = ACTI) 241 SEC 74-125 H [id number] 08:29:00 Test Item Value Reference Range Interpretation Comments GLUBED (test code = GLUBED) 115 MG/DL 74-106 H [id number] 19:03:00 Test Item Value Reference Range Interpretation Comments GLUBED (test code = GLUBED) 143 MG/DL 74-106 H [id number] 16:36:00 Test Item Value Reference Range Interpretation Comments GLUBED (test code = GLUBED) 314 MG/DL 74-106 H [id number] 12:15:00 Test Item Value Reference Range Interpretation Comments GLUBED (test code = GLUBED) 130 MG/DL 74-106 H COVID 19 Asymptomatic IH [id number] 09:47:00 Test Item Value Reference Range Interpretation Comments COVID 19 Asymptomatic IH AG (test NEGATIVE Negative code = COVNONPUIAG) Spec Comments: PATIENT GOING TO CATH LABPROTHROMBIN [id number] 09:38:00 Test Item Value Reference Range Interpretation [...] Aspirin Enoxaprin (Lovenox)Spec Comments: PATIENT 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 TO LINOLEUM FLOOR INSTALLER 1,GLUBED 2020-07-03 08:24:00 Test Item Value Reference Range Interpretation Comments GLUBED (test code = GLUBED) 135 MG/DL 74-106 H BASIC METABOLIC [id number] 06:53:00 Test Item Value Reference Range Interpretation [...] 9.1 mg/dL 8.4-10.2 N CA) CBC W/AUTO [id number] 06:42:00 Test Item Value Reference Range Interpretation [...] = BA#) 0.05 x10 3/uL 0.0-0.1 N [id number] 21:27:00 Test Item Value Reference Range Interpretation Comments GLUBED (test code = GLUBED) 234 MG/DL 74-106 H [id number] 16:22:00 Test Item Value Reference Range Interpretation Comments GLUBED (test code = GLUBED) 195 MG/DL 74-106 H [id number] 12:04:00 Test Item Value Reference Range Interpretation Comments GLUBED (test code = GLUBED) 179 MG/DL 74-106 H [id number] 08:51:00 Test Item Value Reference Range Interpretation Comments GLUBED (test code = GLUBED) 124 MG/DL 74-106 H [id number] 20:53:00 Test Item Value Reference Range Interpretation Comments GLUBED (test code = GLUBED) 129 MG/DL 74-106 H [id number] 18:30:00 Test Item Value Reference Range Interpretation Comments GLUBED (test code = GLUBED) 174 MG/DL 74-106 H [id number] 12:32:00 Test Item Value Reference Range Interpretation Comments GLUBED (test code = GLUBED) 152 MG/DL 74-106 H [id number] 08:40:00 Test Item Value Reference Range Interpretation Comments GLUBED (test code = GLUBED) 98 MG/DL 74-106 N [id number] 20:46:00 Test Item Value Reference Range Interpretation Comments GLUBED (test code = GLUBED) 110 MG/DL 74-106 H - DUP LE ART [id number] 18:07:00 [facility] WOODName: HARJINDER COLUNGA : 1965 Sex: M FAX: Patrick Ponce Adrian [phone] [place]: St: ADM FAX: Nathanael Romero [phone] --------- Name: HARJINDER COLUNGA [facility] : 1965 Age/S: 55/M [address] Unit #: [id number] Loc: [address] [place] [address] Phys: Patrick Sr DPM R2 Acct: [id number] Dis Date: Status: ADM IN PHONE #: [phone] Exam Date: 06/30/2020 1731 FAX #: [phone] Reason: WOUNDS EXAMS: CPT CODE: [id number] DUP LE ART PETER [address] STUDY: Bilateral lower extremity ultrasound with Doppler. [...] disease. PAGE 1 Signed Report (CONTINUED) FAX: RembertoPatrick Adrian [phone] [place]: [facility]: ADM FAX: Nathanael Romero [phone] Name: HARJINDER COLUNGA [facility] : 1965 Age/S: 55/M [address] Unit #: [id number]: [address] [place] [address] Phys: Patrick Sr DPM R2 Acct: [id number] Dis Date: Status: ADM IN PHONE #: [phone] Exam Date: 06/30/2020 173 FAX #: [phone] Reason: WOUNDS EXAMS: CPT CODE: [id number] DUP LE ART PETER [address] <Continued> at 1807 Reported and signed by: Donaldo Wen MD CC: Patrick Sr DPM; Nathanael Laureano Technologist: MARK Gallardo Trnscrd Date/Time/By: 06/30/2020 (1806) : By: [email or web address] PAGE 2 Signed Report FAX: Patrick Sr Arm [phone] [place]: [facility]: ADM FAX: Nathanael Romero [phone] [facility] 1965 Age/S: 55/M [address] Unit #: [id number] Loc: [address] [address] Phys: Patrick Sr DPM R2 Acct: [id number] Dis Date: Status: ADM IN PHONE #: [phone] Exam Date: 06/30/2020 1731 FAX #: [phone] Reason: WOUNDS EXAMS: CPT CODE: [id number] DUP LE ART PETER [address] <Continued> Orig Print D/T: S: 06/30/2020 (1814)PAGE 3 Signed Report- DOP ART 1-2 LEVELS [id number] 18:07:00 [facility] : 1965 Sex: M FAX: Patrick Ponce Arm [phone] [place]: St: ADM FAX: Pavel Hicks MD [phone] Name: HARJINDER COLUNGA [facility] : 1965 Age/S: 55/M [address] Unit #: [id number] Loc: [address] [place] [address] Phys: Patrick Sr Abner DPM R2 Acct: [id number] Dis Date: Status: ADM IN PHONE #: [phone] Exam Date: 06/30/2020 1731 FAX #: [phone] Reason: WOUNDS, HX OF SMOKING, NON PALP PULSES EXAMS: CPT CODE: [id number] DOP ART 1-2 LEVELS PETER [address] STUDY: Bilateral lower extremity ultrasound with Doppler. [...] tibial artery: 12, monophasic, Peroneal artery: 16, mo nophasic, Dorsalis pedis: 15, monophasic LEFT LOWER EXTREMITY: [...] these arteries. Left infrapopliteal artery monophasic waveforms consist ent with significant arterial disease distal to the popliteal artery. Bilateral RADAMES values compatible with moderate arterial disease. PAGE 1 Signed Report (CONTINUED) FAX: RembertoPatrick see Arm [phone] [place]: St: ADM FAX: Pavel Hicks MD [phone] Name: [place] : 1965 Age/S: 55/M [address] Unit #: [id number] Loc: [address] [place] [address] Phys: Patrick Sr DPM R2 Acct: [id number] Dis Date: Status: ADM IN PHONE #: [phone] Exam Date: 06/30/2020 173 FAX #: [phone] Reason: WOUNDS, HX OF SMOKING, NON PALP PULSES EXAMS: CPT CODE: [id number] DOP ART 1-2LEVELS PETER 30851 <Continued> at 1807 Reported and signed by: Donaldo Wen MD CC: Patrick Sr DPM; Pavel Muñoz MD Technologist: MARK Gallardo Trnscrd Date/Time/By: 06/30/2020 (1807) : By: [email or web address] PAGE 2 Signed ReportFAX: Patrick Sr Arm [phone] [place]: St: [facility] FAX: Pavel Hicks MD [phone] ------ Name: HARJINDER COLUNGA [facility] [place] : 1965 Age/S: 55/M [address] Unit #: [id number] Loc: [address] [place], [place] [address]Dtkg: Patrick Sr DPM R2 Acct: [id number] Dis Date: Status: ADM IN PHONE #: [phone] Exam Date: 06/30/20201730 FAX #: [phone] Reason: WOUNDS, HX OF SMOKING, NON PALP PULSES EXAMS: CPT CODE: [id number] DOP ART 1-2 LEVELS PETER [address]47 <Continued> Orig Print D/T: S: 06/30/2020 (1810) PAGE 3 Signed [id number] 16:25:00 Test Item Value Reference Range Interpretation Comments GLUBED (test code = GLUBED) 244 MG/DL 74-106 H [id number] 12:16:00 Test Item Value Reference Range Interpretation Comments GLUBED (test code = GLUBED) 246 MG/DL 74-106 H [id number] 08:54:00 Test Item Value Reference Range Interpretation Comments GLUBED (test code = GLUBED) 172 MG/DL 74-106 H [id number] 21:00:00 Test Item Value Reference Range Interpretation Comments GLUBED (test code = GLUBED) 118 MG/DL 74-106 H [id number] 15:58:00 Test Item Value Reference Range Interpretation Comments GLUBED (test code = GLUBED) 249 MG/DL 74-106 H [id number] 12:28:00 Test Item Value Reference Range Interpretation Comments GLUBED (test code = GLUBED) 285 MG/DL 74-106 H - MRI LOW EXT W/O CONT [id number] 11:17:00 [facility]INDER COL[facility] : 1965 Sex: M FAX: Patrick Will Arm [phone] [place]: St: ADM FAX: Pavel Hicks MD [phone] Name: HARJINDER COLUNGA : 1965 Age/S: 55/M [address] Unit #: [id number] Loc: C.[address] [place] [address] Phys: Patrick Sr DPM R2 Acct: [id number] Dis Date: Status: ADM IN PHONE #: [phone] Exam Date: 06/29/2020 0959 FAX #: [phone] Reason: PETER le WOUNDS IN FORE FOOT EXAMS: CPT CODE: [id number] MRI L[place] EXT W/[place] [address] EXAM: - MRI LOW EXT W/O CONT LT HISTORY: PETER le WOUNDS IN FORE FOOT,pain COMPARISON: None available at time of interpretation. TECHNIQUE: Multi sequential, multiplanar noncontrast MR images of the left foot. FINDINGS: Bones: No areas of confluent T1 hypointensity identified. 4 mm subcortical cyst identified at the 4th metatarsal bases. Soft tissues: No drainable fluidcollection. Subcutaneous edema at the dorsum of the [...] signed by: Michael Bai MD CC: Patrick Roper DPM; Pavel Muñoz MD Technologist: Wendy Agee Trnscrd Date/Time/By: 06/29/2020 (1117) : By: [email or web address] PAGE 1 Signed Report FAX: Patrick Sr Arm [phone] [place]: [facility]: ADM FAX: Pavel Hicks MD [phone] Name: HARJINDER COLUNGA [facility] : 1965 Age/S: 55/M [address] Unit #: [id number] Loc: C.[address] [place] [address] Phys: Patrick Sr DPM R2 Acct: [id number] Dis Date: Status: ADM IN PHONE #: [phone] Exam Date: 06/29/2020 0959 FAX #: [phone] Reason: BILle WOUNDS IN FORE FOOT EXAMS: CPT CODE: [id number] MRI [place] EXT W/[place] [address] <Continued> Orig Print D/T: S: 06/29/2020 (1120) PAGE 2 Signed Report- MRI LOW EXT W/O CONT RT 2020-06-29 10:16:00 [facility] : 1965 Sex: M FAX: Patrick Ponce Arm [phone] [place]: [facility]: ADM FAX: Pavel Hicks MD [phone] Name: HARJINDER CLOUNGADOB: 1965 Age/S: 55/M [address] Unit #: [id number] Loc: C.[address] [place] [address] Phys: Patrick Sr DPM R2 Acct: [id number] Dis Date: Status: ADM IN PHONE #: [phone] Exam Date: 06/29/2020 0959 FAX #: [phone] Reason: PETER FOOT WOUNDS EXAMS: CPT CODE: [id number] MRI LOWEXT W/[place] [address] EXAM: - MRI LOW EXT W/O CONT [...] DPM; Pavel Muñoz MD Technologist: Wendy Agee Trnflrd Date/Time/By: 06/29/2020 (1016) : By: [email or web address].[email or web address] PAGE 1 Signed Report FAX: Patrick Sr Arm [phone] [place]: St: [facility] FAX: Pavel Hicks MD [phone] Name: HARJINDER COLUNGA : 1965 Age/S: 55/M [address] Unit #: [id number] Loc: [place] [address] Phys: Patrick Sr DPMR2 Acct: [id number] Dis Date: Status: ADM IN PHONE #: [phone] Exam Date: 06/29/2020 0959 FAX#: [phone] Reason: PETER FOOT WOUNDS EXAMS: CPT CODE: [id number] MRI LOW EXT W/[place] [address] <Continued> Orig Print D/T: S: 06/29/2020 (1020) PAGE 2 Signed ReportCOMPREHENSIVE METABOLIC [id number] 09:31:00 Test Item Value Reference Range Interpretation [...] N (test code = ALKP) COMPREHENSIVE METABOLIC [id number] 09:30:00 Test Item Value Reference Range Interpretation [...] U/L 38-126 N (test code = ALKP) [id number] 09:28:00 Test Item Value Reference Range Interpretation Comments GLUBED (test code = GLUBED) 184 MG/DL 74-106 H CBC W/AUTO [id number] 07:48:00 Test Item Value Reference Range Interpretation [...] BA#) 0.03 x10 3/uL 0.0-0.1 N SED [id number] 07:48:00 Test Item Value Reference Range Interpretation Comments SED RATE (test code = SEDW) 85 mm/hr 0-20 H HGBA1C - GLYCOSYLATED [id number] 07:08:00 Test Item Value Reference Range Interpretation [...] with these hemo globin variants. CBC W/AUTO [id number] 06:43:00 Test Item Value Reference Range Interpretation [...] BA#) 0.03 x10 3/uL 0.0-0.1 N SED [id number] 06:43:00 Test Item Value Reference Range Interpretation [...] LDL Cholesterol<1 00mg/ dL: Desirable L DL-C xhmfdfbkfuruo62 0-159 mg/dL: Borderli ne High Risk LDL-C ixyeezwyewdup38 0-189 mg/dL: High ris k LDL-C concentra tion HDL-LDL Cholest adi is affected by a number of facto rs suchas smoking, age and sex.~~~~~~~~~~~ ~~~~~ ~~~~~~~~~~~~~~~ ~~~~~ ~~~~~~~~~~~~~~~ ~~~~~ ~~~~ C REACTIVE [id number] 05:49:00 Test Item Value Reference Range Interpretation [...] AVG 11.04~~~~~~~~~~ ~~~~~~~ ~~~~~~~~~~~~~~~ ~~~~~~~ ~~~~~~~~~~~~~~~ ~~~~~~N [facility] Cholest adi Education (NCEP ) Guidelines:~~~~ ~~~~~~~ ~~~~~~~~~~~~~~~ ~~~~~~~ ~~~~~~~~~~~~~~~ ~~~~~~~ ~~~~~ HDL Cholesterol<4 0mg/dL: HDL Cholesterol (Major risk factor for CHD)>60mg/dL: H DL Cholesterol (Ne gative risk factor for CHD)40-59mg/dL: Borderline Risk LDL Cholesterol<1 00mg/dL : Desirable LDL -C cptydlfahynfm19 0-159mg /dL: Borderline High Risk LDL-C kstawntgmuiub90 0-189mg /dL: High risk LDL-C concentration H DL-LDL Cholesterol is affected by a n umber of factors such as smoking, age an d sex.~~~~~~~~~~~ ~~~~~~~ ~~~~~~~~~~~~~~~ ~~~~~~~ ~~~~~~~~~~~~~~~ ~~~~~ C REACTIVE [id number] 05:42:00 Test Item Value Reference Range Interpretation Comments C REACTIVE PROTEIN (test code = 51.3 mg/L 0-9 H CRP) [id number] 20:47:00 Test Item Value Reference Range Interpretation Comments GLUBED (test code = GLUBED) 253 MG/DL 74-106 H BASIC METABOLIC [id number] 17:16:00 Test Item Value Reference Range Interpretation Comments SODIUM (test code = 130 mmol/L 137-145 L NA) POTASSIUM (test code 4.6 mmol/L 3.4-5.0 N = K) CHLORIDE (test code = 93 mmol/L 98-107 L CL) CARBON DIOXIDE (test 29 mmol/L 22-30 N code = CO2) GLUCOSE (test code = 404 mg/dL 74-106 HH Critica l Value GLU) reported toFirs t Name:[id number] La st Name:RESULTS RE AD BACK AND VERIFIEDby C.LAB.AC2, [...] 9.1 mg/dL 8.4-10.2 N CA) LIVER FUNCTION [id number] 17:16:00 Test Item Value Reference Range Interpretation [...] 38-126 N (test code = ALKP) LACTIC [id number] 17:04:00 Test Item Value Reference Range Interpretation Comments LACTIC ACID (test code = LACT) 1.7 mmol/L 0.7-2.0 N - XR FOOT 3 + V [id number] 17:00:00 [facility] : 1965 Sex: M FAX: Giovany Landa MD R1 [place]: St: REG Name: HARJINDER COLUNGA [facility] : 1965 Age/S: 55/M [address] Unit #: [id number] [place]: [place] [address] Phys: Giovayn Landa MD R1 Acct: [id number] Dis Date: Status:REG ER PHONE #: [phone] Exam Date: 06/28/2020 1649 FAX #: [phone] Reason: left foot woundEXAMS: CPT CODE: [id number] XR FOOT 3 + V LT [address] EXAM: - XR FOOT 3 + V LT HISTORY: left foot woundCOMPARISON: None available time of interpretation. FINDINGS: Frontal, oblique, and lateral views ofthe left foot are provided. Chronic erosion in [...] MD Technologist: Lindsey Ha; STUDENT 2ND YEAR Trnflrd Date/Time/By: 06/28/2020 (1700) : By: [email or web address] PAGE 1 Signed Report FAX: Giovany Landa MD R1 [place]: St: REG Name: HARJINDER COLUNGA [facility] : 1965 Age/S: 55/M [address] Unit #: [id number] Loc: [place] [address] Phys: Giovany Landa MD R1 Acct: [id number] Dis Date: Status: REG ER PHONE #: [phone] Exam Date: 06/28/2020 1649 FAX #: [phone] Reason: left foot wound EXAMS: CPT CODE: [id number] XR FOOT 3 + [place] [address] <Continued> Orig Print D/T: S: 06/28/2020 (4958) PAGE 2 Signed ReportUA RFLX MICR CULT IF [id number] 16:19:00 Test Item Value Reference Range Interpretation [...] oth srcSOURCE OF URINE: CLEAN CATCHCBC W/AUTO [id number] 15:48:00 Test Item Value Reference Range Interpretation [...] 3/uL 0.0-0.1 N - XR CHEST 1 [id number] 15:36:00 [facility]: HARJINDER COLUNGA : 1965 Sex: M FAX: Mi Ellis NP [place]: [facility]: PRE -------- Name: HARJINDER COLUNGA [facility] : 1965 Age/S: 55/M [address] Unit #: [id number] Loc: [place] [address] Phys: Mi Ellis NP Acct: [id number] Dis Date: Status: PRE ER PHONE #: [phone] Exam Date: 06/28/20201532 FAX #: [phone] Reason: CODE SEPSIS EXAMS: CPT CODE: [id number] XR CHEST 1 V 87595 EXAMINATION: Frontal chest radiograph INDICATION: Code sepsis COMPARISON: 02/27/2016 FINDINGS: Clear lungs. No pleural effusion or pneumothorax. Normal cardiomediastinal silhouette. IMPRESSION: No acute abnormality identified. at 1536 Reported and signed by: Richard Linda M.D. CC: Mi Ellis NP Technologist: Lindsey Ha; STUDENT 2ND YEAR Trnscrd Date/Time/By: 06/28/2020 (6006) : By: [email or web address] PAGE 1 Signed Report FAX: Mi Ellis NP [place]: [facility]: PRE Name: HARJINDER COLUNGA [facility] : 1965 Age/S: 55/M [address] Unit #: [id number] Loc: [place] [address] Phys: Mi Ellis NP Acct: [id number] Dis Date: Status: PRE ER PHONE #: [phone] Exam Date: 06/28/2020 1533 FAX #: [phone] Reason: CODE SEPSIS EXAMS: CPT CODE: [id number] XR CHEST 1 V 79394 <Continued> Orig Print D/T: S: 06/28/2020 (1539) PAGE 2 Signed Report- US EXTREM NON VASC [id number] 15:47:00[facility]EN[facility]: HARJINDER COL[facility]GA : 1965 Sex: M Patient Name: HARJINDER COLUNGA Unit No: [id number] EXAMS: CPT CODE: [id number] US EXTREM NON VASC LTD 52863 HISTORY: Infection Location: C3 FINDINGS: Sonographic images of the leg were obtained. No soft tissue fluid collection demonstrated. No cystic or solid mass identified. IMPRESSION: 1. Soft tissue edema without discrete dominant fluid collection or cystic or solid mass lesion. at 1547 Reported and signed by: Donaldo Tang M.D. CC: Rod Cerda PLANNING DIRECTOR Technologist: Ely Lopez RDMS Trnscrbd D/ (1547) MerRXC2 Probe: [id number] Orig Print D/T: S: 02/27/2020 (1550) Probe: CAMELIA Vora NAME: HARJINDER COLUNGA [address] [place] [address] PHYS: [place], [place] [address] : 1965 AGE: 54 SEX: M LOC: VANNA PHONE #: [phone] EXAM DATE: 02/27/2020 STATUS: REG ER FAX #: [phone] RAD NO: Page 1 Signed ReportBASIC METABOLIC [id number] 15:20:00 Test Item Value Reference Range Interpretation [...] 70-110 HH ON 12/08 AT GLU) 1520, a.[facility].8 6 CALLED TO LUDIN LANG. The rep [...] NORMAL code = LIPINDEX) Index/DL GLUCOSE BEDSIDE [id number] 14:32:00 Test Item Value Reference Range Interpretation Comments GLUCOSE BEDSIDE 459 MG/DL 70-119 HH LOW/HIGH KVNG RT VALUE - TESTING (test code = ACTION REQUIRED GLUBED) - CT ABD PELVIS W/O [id number] 16:45:00 Name: HARJINDER COLUNGA [facility] : 1965 Age/S: 54 / M [address] [facility] [address] Unit #: [id number] Loc: [address] Phys: Brennan Dupont MD [place], [place] [address] Acct: [id number] Dis Date: Status: REG ER PHONE #: Exam Date: 10/08/2019 3151 FAX #: Reason: R sided flan pain EXAMS: CPT CODE: [id number] CT ABD PELVIS W/O CONT 88672 EXAM: CT of the abdomen and pelvis [...] acute abdominal or pelvic abnormalities. Location code: [facility] at 1645 Reported and signed by: Feliciano Mcdaniel M.D. 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 (test code = UAMICRO) COMPREHENSIVE METABOLIC [id number] 13:06:00 Test Item Value Reference Range Interpretation [...] 50-139 N code = ALKP) CBC W/AUTO [id number] 12:54:00 Test Item Value Reference Range Interpretation [...] REQUIRED (test code NO = MDIFF) CHEM [id number] 14:06:001.11Memorinv HermannCHEM TEZIC7237-59-95 14:06:[address] [facility] CenterFtmdpflQFWOLZJVKG3453-74-34 14:06:82458Eaqcmtoa HermannHEMATOLOGY 2016-01-03 14:06:00 Test Item Value Reference Range Interpretation Comments PTT (test code = PTT) 24.1 s 22.9-35.[address] [facility] CenterOdpuaetRBKKDRCVGK7476-14-20 06:35:004.52[facility] HermannHEMATOLOGY 2016-01-03 06:35:0013.3[facility] RyjsndyWZIOPNWTXI0532-14-85 06:35:009.9[facility] QpooqjuKMPFMMTUSC0118-39-76 06:35:002.6[facility] NoixdziTSFDPRSJYD4709-61-51 06:35:00Normal (01/03/16 1:35 AM)[facility] GkzyodxMXHWBOPCSC2813-15-88 06:35:00 Normal (01/03/16 1:35 AM)[facility] HeyzfddXXWFRINSZQ3964-09-48 06:35:0019.4 Memorial LwlkxlwTAPDTZOQLU0848-79-29 06:35:0074.2[facility] HermannHEMATOLOGY 2016-01-03 06:35:000.1[facility] EpuhtbbORHJYDAKKR7905-79-15 06:35:000.7[facility] BjgrxnjNUDWFTMVLH2252-76-84 06:35:000.1[facility] JnwugbhGGZPGAPFIQ4802-83-65 06:35:000.6[facility] FncqcyoOVRNFJWVRB0797-20-43 06:35:000.8[facility] Guille UJCEZOJISY8253-65-61 06:35:005.0[facility] HermannCARDIAC EJQYBDY4620-02-71 06:35:0047Mem[facility] HermannCARDIAC ZUELAAX2248-25-39 06:35:0011[facility] Tina CHEM SCAFN7243-23-65 06:35:52322Rznpywbc HermannCHEM MYLGS3545-39-02 06:35:00 13.5[facility]orial HermannCHEM EWLQC5399-96-52 06:35:0024Memorial HermannCHEM PANEL 2016-01-03 06:35:003.5[facility] HermannCHEM TEIEN3872-60-00 06:35:003.1[facility] HermannCHEM UJGZC5848-50-26 06:35:49211Ukyrihpf HermannCHEM YAIFR2296-08-80 06:35:65291Krrxqqmy HermannCHEM AMKRU8854-14-60 06:35:008.2[facility] HermannCHEM AQMKU0659-64-17 06:35:009[facility] HermannCHEM ZWMMA7768-45-63 06:35:006.3 [facility] HermannCHEM CGFJX1437-84-06 06:35:003.2[facility] HermannCHEM PANEL 2016-01-03 06:35:0061Mem[facility] HermannCHEM ZJZBU1562-93-32 06:35:000.5[facility] HermannCHEM OAWZP2949-28-95 06:35:0011[facility] HermannCHEM JSOXJ2496-82-63 06:35:001.0[facility] HermannCHEM WSTKD7403-82-56 06:35:0022Mem[facility] HermannCHEM VVRJO8326-65-90 06:35:000.88Mem[facility] HermannCHEM UUEGY5251-46-16 06:35:008 [facility] HermannCHEM KABGN9064-55-30 06:35:55884Tjhkbeor HermannCHEM PANEL 2016-01-03 06:35:001.8[facility]orial JsqbrasKZPZUOUPUP7627-80-22 06:35:007.9[facility] TqqfntaKALSXFFYKM6076-34-90 06:35:29936Ayxzayaa RbvwhfzXFXZGKUPSV2340-42-20 06:35:0034.8[facility] EcxobwjKZDGDKVZEG1276-69-40 06:35:00 Test Item Value Reference Range Interpretation Comments MCH (test code = MCH) 30.9 pg 27.0-31.0 Memorial EiybvldOLFMGCICQD3537-19-89 06:35:0088.8[facility] HermannHEMATOLOGY 2016-01-03 06:35:0040.2[facility] JsqfrnoTRDKDATUZT8521-69-50 06:35:0014.0[facility] FnndindFZZGSVSVWC3770-86-24 06:35:0012.8[facility] HermannCHEM XFPEG3977-58-06 10:18:008.1[facility] HermannCHEM TWJJW6100-03-48 10:18:0026Mem[facility] HermannCHEM BFYTZ5720-41-38 10:18:00866Vgzkwqze HermannCHEM GVOLE2671-30-97 10:18:009 [facility] HermannCHEM EEPFU1337-36-65 10:18:004.0[facility] HermannCHEM PANEL 2015-12-19 10:18:27225Sdiprxmw HermannCHEM HDMHS1640-75-40 10:18:10583Qcugflfb HermannCHEM WTWZW9578-60-45 10:18:32611Jdwedcjw HermannCHEM UPKUJ2911-72-49 10:18:000.76[facility] HermannCHEM ABFXT5208-77-33 10:18:0012.0[facility] Gu[facility] HYDOIYZBSQ1433-05-53 10:18:00 Test Item Value Reference Range Interpretation Comments MCH (test code = MCH) 30.4 pg 27.0-31.0 Memorial DxnyuhkDVPSTGQLXN0017-22-88 10:18:93952Bygbvfxz HermannHEMATOLOGY 2015-12-19 10:18:0034.3[facility]orial FrqfvtjDGQYWCZPUP3185-44-15 10:18:008.2[facility] DuqsfbfJACBYRBJKP7806-37-78 10:18:0012.4[facility] ThjxcvcNLVTETXSHG0134-42-66 10:18:0010.3[facility] CcieylkGBRIXVIKIZ3214-83-57 10:18:004.51[facility] Tina EBKPLNVIPR1350-81-74 10:18:0088.7[facility]orial DdfhtrrUQWEQODDKS0259-24-51 10:18:00 13.7Memorial JljdpmvYOTGIGHDQK3591-89-52 10:18:0040.0[facility] HermannHEMATOLOGY 2015-12-19 10:18:0018.9[facility]orial XiwbwyiMDSCZQOXWX9617-92-58 10:18:0073.5[facility] VbdnyxgSVFNBZLLIG4882-40-94 10:18:006.7[facility] FueeatdKBUSIDBUWO2079-06-20 10:18:007.6[facility] AqvnaulBOBINMMVIF4597-22-59 10:18:000.4[facility] Tina RPKKGLKRUM6326-28-35 10:18:000.0[facility] MyycxsaEZMMDHUHER5531-95-56 10:18:000.7 Memorial VoocpbwSKLYRLNUIE0615-98-13 10:18:000.5[facility] HermannHEMATOLOGY 2015-12-19 10:18:001.9Memorial XcquwpmPXKMYOMTZN9745-04-13 10:18:000.0[facility] HermannCHEM JDSJA5646-07-03 04:30:0090Mem[facility] HermannCHEM BNFGY3255-39-31 04:30:007.8[facility] HermannCHEM ZCVSQ6276-82-82 04:30:000.6[facility] HermannCHEM HVEXL2747-29-21 04:30:0062Memorial HermannCHEM LZHJS7600-67-38 04:30:0010 [facility] HermannCHEM MPLHK5638-79-22 04:30:0013.0[facility] HermannCHEM PANEL 2015-12-13 04:30:0024Mem[facility] HermannCHEM TEMUH7806-29-07 04:30:001.34[facility] HermannCHEM GKBJK2785-32-38 04:30:93475Jriyblsg HermannCHEM PPTVO5698-87-63 04:30:0015Mem[facility] HermannCHEM ERVTN2632-40-13 04:30:0017Mem[facility] HermannCHEM XWEQC4575-18-84 04:30:003.7[facility] HermannCHEM EBOLN0465-25-10 04:30:0011 [facility] HermannCHEM DRYFC1720-56-79 04:30:004.0[facility] HermannCHEM PANEL 2015-12-13 04:30:008.6[facility] HermannCHEM AFUHZ5688-68-88 04:30:46359Pvelezio HermannCHEM WZEIU8449-82-01 04:30:0099Mem[facility] HermannCHEM WCLMS1058-32-65 04:30:004.1[facility] HermannCHEM JXSIQ6470-00-02 04:30:000.9[facility] Gu[facility] QOXBOEEBLW8151-06-09 04:30:000.4[facility] ZnswjbtCWPHKVHVFC6858-40-52 04:30:000.0 Memorial WanbnycJBFRMXCNNP1159-89-66 04:30:001.3[facility] HermannHEMATOLOGY 2015-12-13 04:30:006.1[facility] CspxhoiQAQEFARRCM6645-42-77 04:30:000.3[facility] PhfhprkNEWGERBLHL4337-73-07 04:30:000.4[facility] GypzklaQJDCKWVVRP5017-99-54 04:30:005.5[facility]orial KslumbbWMZYTKCOOK8737-58-10 04:30:0077.4[facility] Guille IGZBSGFQKM6805-08-10 04:30:0016.4[facility] NoeeyyaKOXEUNJOHJ7591-18-42 04:30:00 340[facility] PalujbjFGXWRACNSA5287-93-16 04:30:008.4[facility] HermannHEMATOLOGY 2015-12-13 04:30:0034.2[facility] OcbygdxEEACTGCKWD3802-19-17 04:30:0012.8[facility] FfesxofXVUZROSNRS6262-84-87 04:30:0015.3[facility] JxzyxaeKFDXWKXNLR6097-97-18 04:30:0044.7[facility] WajzxlpBNDTIWCBZA3330-19-41 04:30:00 Test Item Value Reference Range Interpretation Comments MCH (test code = MCH) 30.6 pg 27.0-31.0 Memorial DspcinyODJGLAXVVL2211-35-16 04:30:0089.4[facility] HermannHEMATOLOGY 2015-12-13 04:30:007.9[facility] FnfaldaRNIIZANYSO9718-83-63 04:30:004.99[facility] GykdpdsOKVHLNRQCN4571-14-69 04:30:00<2Memorial NxzrwlcJZRUVIGROX1532-24-41 04:30:00<0.003[facility] AtuycmsECHDWWGNZO1647-41-38 04:30:00<3Mem[facility] KbczcnhBHTXYMYLTV9363-11-81 04:30:004.1[facility] Tina Notes Date/Time Note Provider Source 2022-02-17 16:00:00-00:00 [id number] [facility] PATIENT NAME: HARJINDER COLUNGA ADMIT DATE: 01/01/22 ACCOUNT NO: [id number] ROOM NO: .[facility] AGE: 56 REPORT TYPE: 360 - QUERY RESPONSE DOCUMENT SEX: M DATE OF : [birth year] ADMITTING PHYSICIAN:Ab Lucas MD ATTENDING PHYSICIAN:Ab Lucas MD Provider Query QUERY TEXT: Relationship Diagnoses General 360MD Query related questions should be directed to:Rolando [facility] Coding Query Helpline Please clarify the relationship, [...] Query related questions should be directed to:Te [facility] Coding Query Helpline Based on your clinical judgment, can you provide the known or suspected condition(s) that represent(s) the clinical indicators listed below and if the condition(s) are present on admission (POA)? The following definitions are provided based on industry literature and in collaboration with [facility] for your [...] PATIENT NAME: HARJINDER COLUNGA 966 2022-01-05 10:29:00-00:00 [facility] ([facility]) Discharge Summary REPORT#:[id number] REPORT STATUS: Signed DATE:01/05/22 TIME: 1029 PATIENT: HARJINDER COLUNGA UNIT #: [id number] ROOM/BED: [facility]7-A : [birth year] AGE: 56 SEX: M ATTEND: Zoya Lucas MD ADM AUTHOR: Armida Marmolejo PLANNING DIRECTOR * ALL edits or amendments must be made on the [employer]/computer document * PCP PCP PCP: PCP: Dr. Jhon Jones Discharge to: home General Information Problem List/A P: 1. Cellulitis of left anterior lower leg 2. Uncontrolled type 2 diabetes mellitus with h yperglycemia, with long-term current use of insulin 3. Well-controlled hypertension 4. Tobacco use disorder 5. Hyperlipidemia due to type 2 diabetes [place] 6. Ambulatory dysfunction 7. Hypomagnesemia 8. Left [...] 2 DM with hyperglycemia, wi th terminal makeup operator current use of insulin blindness- 12/31 Serum glucose 216. HbA1C ordered. Maintain nutritional support with ADA diet. Monitor FSBG ac hs. Home dose of Lantus Insulin 15u q hs; medium dose sliding scale insu osiris. 3. Controlled HTN- Admit BP 137/77; home dose of Losartan resumed. Monitor BP. 4. 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 [place], [place], [address], > 70 mins 01/01/22 1. Cellulitis Left [...] 2 DM with hyperglycemia, wi th terminal makeup operator current use of insulin, blindness- 12/31 Serum glucose 216. 01/01 UlG7F=05.1. Maintain nutritional support with ADA diet. Monitor [...] Lovenox DNR status per patient preference. Inpatient, 65630, > 35 mins 01/02/22 1. Cellulitis Left Anterior Lower Extremity- Cellulitis slowly improving. Pt is on tramadol as needed for pa in management. On IV vancomycin and zosyn. Pharmacy following for vancomycin dosing. 2. Uncontrolled Type 2 DM with hyperglycemia, wi th group home current use of insulin, blindness- 01/01 UhQ1H=08.1. On lantus insulin just titrated the dose [...] Pepcid, Lovenox DNR status per patient preference. 27158, > 35 mins 01/03/22 1. Cellulitis Left Anterior Lower Extremity- Cellulitis slowly improving. Pt is on tramadol as needed for pain management. pineda ed vancomycin and zosyn to Unasyn. 2. Uncontrolled Type 2 DM with hyperglycemia, wi th terminal makeup operator current use of insulin, blindness- 01/01 NdU3I=29.1. On lantus i nsulin , BG 155. continue to monitor BG ac and hs 3. Controlled HTN- on Losartan , Monitor BP. 4. Tobacco Use Disorder with 40 pack years, use of smokeless tobacco, chronic cough- Continue nicotine patch 5. 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 Ppx: Pepcid, Lovenox DNR status per patient preference. 87156, > 35 mins 01/04/22 1. Cellulitis Left Anterior Lower Extremity- Jaqueline lulitis improving. Pt is on tramadol as needed for pain management. On Unasy n. 2. Uncontrolled Type 2 DM with hyperglycemia, wi th group home current use of insulin, blindness- 01/01 GgM7K=28.1. On lantus i nsulin , BG 155. continue to monitor BG ac and hs 3. Controlled HTN- on Losartan , Monitor BP. 4. Tobacco Use Disorder with 40 pack years, use of smokeless tobacco, chronic cough- Continue nicotine patch 5. 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 Ppx: Pepcid, Lovenox DNR status per patient preference. 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 Hyperlipidemia due to type 2 diabetes [place] 6. Ambulatory dysfunction 7. Hypomagnesemia 8. Left [...] 2 DM with hyperglycemia, wi th terminal makeup operator current use of insulin blindness- 12/31 Serum glucose 216. HbA1C ordered. Maintain nutritional support with ADA diet. Monitor FSBG ac hs. Home dose of Lantus Insulin 15u q hs; medium dose sliding scale insu osiris. 3. Controlled HTN- Admit BP 137/77; home dose of Losartan resumed. Monitor BP. 4. 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 [place], Obs, [address], > 70 mins 01/01/22 1. Cellulitis Left [...] 2 DM with hyperglycemia, wi th terminal makeup operator current use of insulin, blindness- 12/31 Serum glucose 216. 01/01 VwL4S=11.1. Maintain nutritional support with ADA diet. Monitor [...] Lovenox DNR status per patient preference. Inpatient, 83255, > 35 mins 01/02/22 1. Cellulitis Left Anterior Lower Extremity- Cellulitis slowly improving. Pt is on tramadol as needed for pa in management. On IV vancomycin and zosyn. Pharmacy following for vancomycin dosing. 2. Uncontrolled Type 2 DM with hyperglycemia, wi th group home current use of insulin, blindness- 01/01 IvL1V=36.1. On lantus insulin just titrated the dose [...] Pepcid, Lovenox DNR status per patient preference. 22956, > 35 mins 01/03/22 1. Cellulitis Left Anterior Lower Extremity- Cellulitis slowly improving. Pt is on tramadol as needed for pain management. pineda ed vancomycin and zosyn to Unasyn. 2. Uncontrolled Type 2 DM with hyperglycemia, wi th group home current use of insulin, blindness- 01/01 OoZ0K=13.1. On lantus i nsulin , BG 155. continue to monitor BG ac and hs 3. Controlled HTN- on Losartan , Monitor BP. 4. Tobacco Use Disorder with 40 pack years, use of smokeless tobacco, chronic cough- Continue nicotine patch 5. 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 Ppx: Pepcid, Lovenox DNR status per patient preference. 92175, > 35 mins 01/04/22 1. Cellulitis Left Anterior Lower Extremity- Jaqueline lulitis improving. Pt is on tramadol as needed for pain management. On Unasy n. 2. 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 On lantus i nsulin , BG 155. continue to monitor BG ac and hs 3. Controlled HTN- on Losartan , Monitor BP. 4. Tobacco Use Disorder with 40 pack years, use of smokeless tobacco, chronic cough- Continue nicotine patch 5. 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 Ppx: Pepcid, Lovenox DNR status per patient preference. 58204, > 35 mins Electronically Signed by Armida Marmolejo NP on 12/20 12/10 at 2119 Electronically Signed by Ab Lucas MD on at 1833 RPT #:[id number] END OF REPORT 2022-01-03 22:24:00-00:00 [facility] ([facility]) Internal Medicine Prog. 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 Psychiatry: normal affect, normal judgement/insi ght, normal mood Results Findings/Data: Laboratory Tests 01/03/22 0549: [Embedded Image Not Available] Laboratory Tests 01/03 1551 1118 0768 3654 Chemistry Sodium (136 - 145 mmol/L) 135 [...] (Auto) (25.0 - 55.0 %) 23.2 L [place] % (Auto) (0.0 - 10.0 %) 8.6 Eos % (Auto) (0.0 - 5.0 %) 2.4 Baso % (Auto) (0.0 - 1.0 %) 0.5 Neut # (Auto) (1.8 - 7.7 K/mm3) 2.65 Lymph # (Auto) (1.0 - 5.0 K/mm3) 0.95 L [place] # (Auto) (0 - 0.8 K/mm3) 0.35 [...] 5. Hyperlipidemia due to type 2 diabetes [place] 6. Ambulatory dysfunction 7. Hypomagnesemia 8. Left [...] Type 2 DM with hyperglycemia, wi th group home current use of insulin blindness- 12/31 Serum glucose 216. HbA1C ordered. Maintain nutritional support with ADA diet. Monitor FSBG ac hs. Home dose of Lantus Insulin 15u q hs; medium dose sliding scale insu osiris. 3. Controlled HTN- Admit BP 137/77; home dose of Losartan resumed. Monitor BP. 4. 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 H P, Obs, 26152, > 70 mins 01/01/22 1. Cellulitis Left [...] Type 2 DM with hyperglycemia, wi th group home current use of insulin, blindness- 12/31 Serum glucose 216. 01/01 OwT1Q=67.1. Maintain nutritional support with ADA diet. Monitor [...] Lovenox DNR status per patient preference. Inpatient, 25298, > 35 mins 01/02/22 1. Cellulitis Left Anterior Lower Extremity- Cellulitis slowly improving. Pt is on tramadol as needed for pa in management. On IV vancomycin and zosyn. Pharmacy following for vancomycin dosing. 2. Uncontrolled Type 2 DM with hyperglycemia, wi th terminal makeup operator current use of insulin, blindness- 01/01 RaF2V=57.1. On lantus insulin just titrated the dose [...] Pepcid, Lovenox DNR status per patient preference. 51330, > 35 mins 01/03/22 1. Cellulitis Left Anterior Lower Extremity- Cellulitis slowly improving. Pt is on tramadol as needed for pain management. pineda ed vancomycin and zosyn to Unasyn. 2. Uncontrolled Type 2 DM with hyperglycemia, wi th group home current use of insulin, blindness- 01/01 XwI5B=23.1. On lantus i nsulin , BG 155. continue to monitor BG ac and hs 3. Controlled HTN- on Losartan , Monitor BP. 4. Tobacco Use Disorder with 40 pack years, use of smokeless tobacco, chronic cough- Continue nicotine patch 5. 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 Ppx: Pepcid, Lovenox DNR status per patient preference. 78832, > 35 mins Electronically Signed by Armida Marmolejo NP on 12/20 09/09 at 2232 Electronically Signed by Ab Lucas MD on at 1423 RPT #:[id number] END OF REPORT 2022-01-02 17:16:00-00:00 [facility] ([facility] Internal Medicine Prog. Note REPORT#:[id number] REPORT STATUS: Signed DATE:01/02/22 TIME: 1716 PATIENT: HARJINDER COLUNGA UNIT #: [id number] ROOM/BED: V3047-A : 69 AGE: 56 SEX: M ATTEND: Zoya Lucas MD ADM AUTHOR: Armida Marmolejo NP * ALL edits or amendments must be made on the [employer]/computer document * Subjective Chief complaint: Left Leg [...] edema Musculoskeletal: no muscle spasm, Right BKA Neuro/ELECTRICAL ENGINEERING TECHNICIAN: alert, oriented x 3, CNII-XII intact, normal [...] % (Auto) (25.0 - 55.0 %) 26.7 [place] % (Auto) (0.0 - 10.0 %) 6.8 Eos % (Auto) (0.0 - 5.0 %) 2.7 Baso % (Auto) (0.0 - 1.0 %) 0.7 Neut # (Auto) (1.8 - 7.7 K/mm3) 2.75 Lymph # (Auto) (1.0 - 5.0 K/mm3) 1.17 [place] # (Auto) (0 - 0.8 K/mm3) 0.30 [...] 5. Hyperlipidemia due to type 2 diabetes [place] 6. Ambulatory dysfunction 7. Hypomagnesemia 8. Left [...] 2 DM with hyperglycemia, wi th terminal makeup operator current use of insulin blindness- 12/31 Serum glucose 216. HbA1C ordered. Maintain nutritional support with ADA diet. Monitor FSBG ac hs. Home dose of Lantus Insulin 15u q hs; medium dose sliding scale insu osiris. 3. Controlled HTN- Admit BP 137/77; home dose of Losartan resumed. Monitor BP. 4. 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 H P, Obs, 59946, > 70 mins 01/01/22 1. Cellulitis Left [...] Type 2 DM with hyperglycemia, wi th group home current use of insulin, blindness- 12/31 Serum glucose 216. 01/01 BrC3A=58.1. Maintain nutritional support with ADA diet. Monitor [...] Lovenox DNR status per patient preference. Inpatient, 76022, > 35 mins 01/02/22 1. Cellulitis Left Anterior Lower Extremity- Cellulitis slowly improving. Pt is on tramadol as needed for pa in management. On IV vancomycin and zosyn. Pharmacy following for vancomycin dosing. 2. Uncontrolled Type 2 DM with hyperglycemia, wi th terminal makeup operator current use of insulin, blindness- 01/01 VqX6F=46.1. On lantus insulin just titrated the dose [...] Pepcid, Lovenox DNR status per patient preference. 27652, > 35 mins Electronically Signed by Armida Marmolejo NP on 12/20 08/10 at 1728 Electronically Signed by Ab Lucas MD on at 1422 RPT #:[id number] END OF REPORT 2022-01-02 07:17:00-00:00 [facility] ([facility]) Pharmacy Prog.Note-Vancomycin REPORT#:[id number] REPORT STATUS: Signed DATE:01/02/22 TIME: 716 PATIENT: HARJINDER COLUNGA UNIT #: [id number] [facility] 69 AGE: 56 SEX: M ATTEND: Zoya Lucas MD ADM AUTHOR: Thong Matt [facility] * ALL edits or amendments must be made on the [employer]/computer document * Vancomycin Vancomycin Medication Therapy Goal: [...] will continue to follow. at 0719 RPT #:[id number] END OF REPORT 2022-01-01 22:53:00-00:00 [facility] Internal Medicine Prog. Note REPORT#:[id number] REPORT STATUS: Signed DATE:01/01/22 TIME: 2252 PATIENT: HARJINDER COLUNGA UNIT #: [id number] ROOM/BED: [address] : 69 AGE: 56 SEX: M ATTEND: Adi Lucas MD ADM AUTHOR: Chris Trotter PLANNING DIRECTOR * ALL edits or amendments must be made on the [employer]/computer document * Subjective Chief complaint: Left Leg [...] edema Musculoskeletal: no muscle spasm, Right BKA Neuro/ELECTRICAL ENGINEERING TECHNICIAN: alert, oriented x 3, CNII-XII intact, normal [...] appear edematous. Correlate with physical exam. Location: [facility] Impression By: [email or web address] - Magan Rae MD [...] 5. Hyperlipidemia due to type 2 diabetes [place] 6. Ambulatory dysfunction 7. Hypomagnesemia 8. Left great toe amputee 9. Hx of right BKA 10. Chronic cough 11. Blind 12. DNR (do not resuscitate) Orders: My Order - Last 24 Hours Procedure Date/time Status Medication Management Message 01/02 1102 Comple te Change Patient Status 01/01 2067 Active Consultants: None Code status: do not [...] Type 2 DM with hyperglycemia, wi th group home current use of insulin blindness- 12/31 Serum glucose 216. HbA1C ordered. Maintain nutritional support with ADA diet. Monitor FSBG ac hs. Home dose of Lantus Insulin 15u q hs; medium dose sliding scale insu osiris. 3. Controlled HTN- Admit BP 137/77; home dose of Losartan resumed. Monitor BP. 4. 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 H P, Obs, 50699, > 70 mins 01/01/22 1. Cellulitis Left Anterior Lower Extremity- Admit WBC 8.3; Lactic Acid improved from [...] 2 DM with hyperglycemia, wi th terminal makeup operator current use of insulin, blindness- 12/31 Serum glucose 216. 01/01 BqS4G=60.1. Maintain nutritional support with ADA diet. Monitor [...] Lovenox DNR status per patient preference. Inpatient, 37652, > 35 mins Attestations Attestation needed: supervising physician at 1310 Electronically Signed by Ab Lucas MD on at 1422 RPT #:[id number] END OF REPORT 2021-12-31 17:43:00-00:00 [id number] [facility] PATIENT NAME: HARJINDER COLUNGA ADMIT DATE: 12/31/21 ACCOUNT NO: [id number] ROOM NO: [facility] AGE: 56 REPORT TYPE: eNVL VENOUS ULTRASOUND SEX: M DATE OF : 69 ADMITTING PHYSICIAN:Ab Lucas MD ATTENDING PHYSICIAN:Ab Lucas MD *[facility]* [address] [place] [address] Limited Lower Extremity Venous Duplex Evaluation Patient: Harjinder Colunga Study Date: 12/31/2021 BP: Location: [facility] URN: [id number] : 1965 Age: 56 Height: / Gender: M Weight: / BMI/BSA: / *Ordering Physician: * Jerry Roa *Interpreting Physician: * Baudilio Doyle MD *Plumber And Tinner: * Cassidy Mcneal Indications: Pain. Study data: Limited lower extremity venous duple x evaluation. Left evaluation with grayscale 2D imaging, color Dopp ler imaging, and spectral Doppler analysis. Location: [facility]. Patient status: Inpatient. Patient room number: RM-C. [...] PATIENT NAME: HARJINDER COLUNGA 966 2021-12-31 15:08:00-00:00 [facility] ([facility]) History Physical - Adult REPORT#:[id number] REPORT STATUS: Signed DATE:12/31/21 TIME: 1508 PATIENT: HARJINDER COLUNGA UNIT #: [id number] ROOM/BED: [facility]-A : 69 AGE: 56 SEX: M ATTEND: Adi Lucas MD ADM AUTHOR: Chris Trotter PLANNING DIRECTOR * ALL edits or amendments must be made on the [employer] document * History of Present Illness HPI [...] mellitus, Hypertension, Dyslip idemia. Additional medical history: [place] in 2003, legally blind Past surgical history: [...] (HABITROL 14 MG) 14 MG TRANSDERM 30 0 07/01/20 Strength: 14 MG/24 HOUR DAILY 1021 PATCH [...] 4 MG X1ED STA 12/31 1118 DC 0 12/31 (morphine SULFATE) IV 12/31 1119 1133 Electrolytic, Caloric, And Glo Sig/Bita Start time Last Medication Dose Route Stop Time Status Admin Sodium Chloride 1,000 ML .Q8H 12/31 1330 AC (SODIUM CHLORIDE IV 01/01 0130 1404 0.9%) Sodium Chloride 1,000 ML X1ED STA 12/31 1118 DC 12/31 (SODIUM CHLORIDE IV 09/12 1217 1130 0.9%) Gastrointestinal Drugs Sig/Bita Start [...] DVT Musculoskeletal: no muscle spasm, Right BKA Neuro/ELECTRICAL ENGINEERING TECHNICIAN: alert, oriented X 3, normal speech, C [...] (Auto) (25.0 - 55.0 %) 14.4 L [place] % (Auto) (0.0 - 10.0 %) 5.1 Eos % (Auto) (0.0 - 5.0 %) 1.6 Baso % (Auto) (0.0 - 1.0 %) 0.4 Neut # (Auto) (1.8 - 7.7 K/mm3) 6.46 Lymph # (Auto) (1.0 - 5.0 K/mm3) 1.19 [place] # (Auto) (0 - 0.8 K/mm3) 0.42 [...] appear edematous. Correlate with physical exam. Location: [facility] Impression By: Alma Rae MD RADIOLOGY - XR TIBIA/FIBULA 2 V LT 12/31 1226 Report Impression - Status: SIGNED Entered: 12/31/2021 1240 IMPRESSION: Mild degenerative changes of the left knee. Othe rwise no radiographically evident bony abnormalities are seen in the scanned left lower extremity. The subcutaneous soft tissues appear edematous. Correlate with physical exam. Location: [facility] Impression By: Alma Rae MD Results: labs [...] 5. Hyperlipidemia due to type 2 diabetes [place] 6. Ambulatory dysfunction 7. Hypomagnesemia 8. Left [...] 2 DM with hyperglycemia, wi th terminal makeup operator current use of insulin blindness- 12/31 Serum glucose 216. HbA1C ordered. Maintain nutritional support with ADA diet. Monitor FSBG ac hs. Home dose of Lantus Insulin 15u q hs; medium dose sliding scale insu osiris. 3. Controlled HTN- Admit BP 137/77; home dose of Losartan resumed. Monitor BP. 4. 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 H P, Obs, 079[address], > 70 mins Attestations Attestation needed: supervising physician at 1851 Electronically Signed by Ab Lucas MD on at 7062 RPT #:[id number] END OF REPORT 2021-12-31 11:20:00-00:00 [facility] ([facility]) EMERGENCY PROVIDER REPORT REPORT#:[id number] REPORT STATUS: Signed DATE:12/31/21 TIME: 112 PATIENT: HARJINDER COLUNGA UNIT #: [id number] ROOM/BED: AGE: 56 SEX: M PCP PHYS: No Primary or Family Ph ysician SERVICE AUTHOR: Jerry Roa MD * ALL edits or amendments must be made on the [employer]/computer document * HPI-General Illness General Initial Greet [...] mellitus, Hypertension, Dyslip idemia. Additional Medical History [place] in 2003 Past Surgical History: Reports: Amputation. Additional Surgical History None Family History: Reports: (father had C AD). Alcohol Use Denies EtOH use Drug Use Denies recreational drugs Other Social History Hx of substance and alcohol abuse Physical Exam Vital Signs Vital Signs First Documented: Result Date Time Pulse Ox 96 12/31 1119 B/P 137/77 / 1119 B/P Mean 97 / 1119 O2 [...] (Auto) (25.0 - 55.0 %) 14.4 L [place] % (Auto) (0.0 - 10.0 %) 5.1 Eos % (Auto) (0.0 - 5.0 %) 1.6 Baso % (Auto) (0.0 - 1.0 %) 0.4 Neut # (Auto) (1.8 - 7.7 K/mm3) 6.46 Lymph # (Auto) (1.0 - 5.0 K/mm3) 1.19 [place] # (Auto) (0 - 0.8 K/mm3) 0.42 [...] B/P 137/77 / 1119 B/P Mean 97 / 1119 O2 Delivery Room air 12/31 1119 Temp 36.9 12/31 1119 Pulse 91 12/31 1119 Resp 20 12/31 1119 All vital signs available at the time of this en try have been reviewed. Clinical Impression Clinical Impression Primary Impression: Cellulitis Disposition Decision Admit Admit Physician Name Ab Lucas MD Admit Physician Toolsmith Physician Request Time 1330 Request Date 12/31/21 )( Admission Accepts Yes )( Accepted Time 1330 )( Accepted Date 12/31/21 Call Information will see patient, agrees with eval, agrees with plan Electronically Signed by Jerry Roa MD on 12/20 06/12 at 1330 RPT #:[id number] END OF REPORT 2021-10-07 07:00:00-00:00 [facility] ([facility]) EMERGENCY PROVIDER REPORT REPORT#:[id number] REPORT STATUS: Signed DATE:10/07/21 TIME: 0700 PATIENT: HARJINDER COLUNGA UNIT #: [id number] ROOM/BED: AGE: 56 SEX: M PCP PHYS: No Primary or Family Ph ysician SERVICE DT: AUTHOR: Jerry Roa MD * ALL edits or amendments must be made on the el [employer]computer document * HPI-General Illness General Initial Greet [...] mellitus, Hypertension, Dyslip idemia. Additional Medical History [place] in 2003 Past Surgical History: Reports: Amputation. [...] Referrals Provider Referral: Gilbert Salinas DO Address: [address] [place] [address] [address] [place] [address] Provider Referral: Rodriguez Salinas DO Follow-Up: 1-2 Days Address: [address] [place] [address] [address] [place] [address] Electronically Signed by Jerry Roa MD on 09/19 01/10 at 0705 [facility] #:[id number] END OF REPORT 2021-08-06 17:50:24-00:00 You Can Quit Smoking: Brief Version *: quit smokingIndication:Nicotine dependenceStart: 24-Tzi-7729Ihghtticsas Type: Patient Education 2021-08-06 17:50:24-00:00 Smoking: Ways to Quit: quitting smokingIndication:Nicotine dependenceStart: 20-Gnt-6168Tnrbgelvltb Type: Patient Education 2021-08-06 16:40:00-00:00 [facility] ([facility]) EMERGENCY PROVIDER REPORT REPORT#:[id number] REPORT STATUS: Signed DATE:08/06/21 TIME: 1640 PATIENT: HARJINDER COLUNGA UNIT #: [id number] ROOM/BED: AGE: 56 SEX: M PCP PHYS: No Primary or Family Ph ysician SERVICE AUTHOR: Brennan Dupont MD * ALL edits or amendments must be made on the el [employer]computer document * HPI-General Illness Free Text HPI Notes Free Text HPI Notes This is a 56-year-old male h istory of diabetes, hypertension, who presents with hyperglycemia. Patient states he has been out of insulin since 07/22/2021. Patient denies fevers chills cough. States that he wants to be placed in a usp. General Initial Greet Date/Time 08/06/21 1518 Presentation [...] MG/DL LAST PM ). Additional Medical History [place] in 2003 Additional Surgical History None Family [...] normal limits Musculoskeletal: normal inspection, normal tone Neuro/ELECTRICAL ENGINEERING TECHNICIAN: alert oriented x 3, nonfocal Skin: warm, [...] pH (5.0 - 8.0) 6.0 Ur Specific [place] (1.001 - 1.035) 1.020 Urine Protein (Neg [...] 1545 IMPRESSION: No acute cardiopulmonary process. Location: [facility] Impression By: [email or web address] - Ramu Ramos M.D. [...] Human Lispro 10 UNITS X1ED STA 08/06 1 727 DC 08/06 SUBQ 08/06 1728 1746 Patient Discharge Departure Vital Signs/Condition Vital Signs First Documented: Result Date Time Pulse Ox 100 08/06 1507 B/P 151/73 08/06 1507 B/P Mean 99 08/06 1507 Temp 36.6 04/18 1507 Pulse 102 08/06 1507 Resp 18 [...] symptoms should prompt an immediate return to [facility] or the closest emergency department or a call to 911. at 1947 RPT #:[id number] END OF REPORT 2020-12-24 12:15:00-00:00 [facility] ([facility]) EMERGENCY PROVIDER REPORT REPORT#:[id number] REPORT STATUS: Signed DATE:12/24/20 TIME: 1215 PATIENT: HARJINDER COLUNGA UNIT #: [id number] ROOM/BED: AGE: 55 SEX: M PCP PHYS: No Primary or Family Ph ysician SERVICE AUTHOR: Jerry Roa MD * ALL edits or amendments must be made on the [employer] document * HPI-Dizziness/Weakness General Initial Greet Date/Time [...] and squeezes hands appropriately upon command. Normal vrfy-pa-wwbt eye mo vements on extraocular muscle testing. [...] MG/DL LAST PM ). Additional Medical History [place] in [place] Additional Surgical History None Family [...] intact, N o edema Text/Dict Notes Right AG. Has a chronic wou nd in left [...] pH (5.0 - 8.0) 6.0 Ur Specific [place] (1.001 - 1.035) 1.020 Urine Protein (Neg [...] Normal intervals, Adequate tracing ECG Q-T-ST - [place] Non-specific ST changes Conduction/[place] RBBB - complete Re-Evaluation MDM Re-Evaluation/Progress #1 [...] Delivery Room air 12/24 1350 Pulse 79 09 1350 Resp 20 12/24 1350 Temp 36.7 [...] Care Referrals Narda Oshea M: 1-2 Days [facility]: 1-2 Days Electronically Signed by Jerry Roa MD on 09/08 at 1644 RPT #:[id number] END OF REPORT 2020-08-14 18:14:00-00:00 [id number] [facility] [address] [place] [address] PATIENT NAME: HARJINDER COLUNGA ADMIT DATE: 06/28/20 ACCOUNT NO: [id number] ROOM NO: [place] [address] AGE: 55 REPORT TYPE: DISCHARGE SUMMARY SEX: M ADMITTING PHYSICIAN:Nathanael Laureano ATTENDING PHYSICIAN:Nathanael Laureano ADMISSION DATE: 06/28/2020 DISCHARGE DATE: 07/05/2020 BRIEF SUMMARY OF THE HOSPITAL COURSE: This is a 55-year-old male. The patient is legally blind, who moved from [place] a year ago and the patient states [...] the hospital, the patient was seen by podi Dr. Marito laughlin, the patient was admitted with bilateral foot [...] stent to the right superficial femoral artery, RESIDENTIAL CARPENTER atherectomy of t he right posterior tibial artery. The patient tolerated the procedure well . After discussing with ID, Dr. Velez, the patient was discharged home on 07/05/2020 with p.o. Keflex for 2 weeks. Dictated By: Nathanael Laureano MD WT: DS:ALEC/LOTTIE Conf#: [id number]/DID#: [id number] Authenticated by Nathanael Laureano MD O n 08/15/2020 05:53:32 PM at 1753 PATIENT NAME: HARJINDER COLUNGA 917 2020-07-11 12:12:00-00:00 [id number] [facility] [address] [place] [address] PATIENT NAME: HARJINDER COLUNGA ADMIT DATE: 06/28/20 ACCOUNT NO: [id number] ROOM NO: C.OBS14 AGE: 55 REPORT TYPE: [...] Pedal access, right posterior tibial artery. 5. RESIDENTIAL CARPENTER atherectomy and stent to the right superf icial femoral artery. 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 This was a difficult portion of the case. Stenting was with a 6 x 200 EverFlex. 6. RESIDENTIAL CARPENTER atherectomy of the right posterior tibial artery [...] done from the groin sheat h. 9. RESIDENTIAL CARPENTER of the right external iliac artery with [...] consent, the patient was taken to the clinical lab scientist and placed supine on the table. Both [...] I successfully gained access acr oss the DATE PULLER. From there, the wire was flossed back [...] ei ther. Prior to removing the sheath, RESIDENTIAL CARPENTER atherectomy of the left tibioperoneal trunk and [...] Dictated By: Gilbert Ventura III, MD WT: OP:ALEC/AMRITA./NTS Conf#: [id number]/DID#: [id number] Authenticated by AMRITA Rodriguez. On 07/19 11:40:13 AM Electronically Signed by Gilbert Ventura III, MD o n 07/19/20 at 1140 PATIENT NAME: HARJINDER COLUNGA 0917 2020-07-05 07:39:00-00:00 [facility] Podiatry Progress Note REPORT#:[id number] REPORT STATUS: Signed DATE:07/05/20 TIME: 738 PATIENT: HARJINDER COLUNGA UNIT #: [id number] ROOM/BED: [address] : 67 AGE: 55 SEX: M ATTEND: Arpit Laureano AUTHOR: Patrick Sr DPM R2 * ALL edits or amendments must be made on the el [employer]computer document * General VS/I O: Last Documented: [...] ABIs report monphasic waveforms d istal to MANAGER CARE MANAGEMENT, stenosis on RIGHT and similar results on left below popliteal. vascular consulted, agr am results pending. WOund debridement performed at bedside 07/01/20 to beef y red bleeding tissue. No further debridement at this time. Dressed with DSD and aquacel. Pt may follow up with Dr. Marito Ray for out patient wound care. discussed with attending at 0742 RPT #:[id number] END OF REPORT 2020-07-05 07:39:00-00:00 [facility] Podiatry Progress Note REPORT#:[id number] REPORT STATUS: Signed DATE:07/05/20 TIME: 07 PATIENT: HARJINDER COLUNGA UNIT #: [id number] ROOM/BED: [address] : [birth year] AGE: 55 SEX: M ATTEND: Arpit Laureano ADM AUTHOR: Patrick Sr DPM R2 * ALL edits or amendments must be made on the el [employer]computer document * General VS/I O: Last Documented: Result Date Time Pulse Ox 98 07/05 720 B/P 120/76 07/05 720 B/P Mean 90.6 07/05 720 Temp 37.1 07/05 720 Pulse 89 07/05 07 Resp 19 07/05 720 O2 Delivery Room [...] ABIs report monphasic waveforms d istal to MANAGER CARE MANAGEMENT, stenosis on RIGHT and similar results on left below popliteal. vascular consulted, agr am results pending. WOund debridement performed at bedside 07/01/20 to beef y red bleeding tissue. No further debridement at this time. Dressed with DSD and aquacel. Pt may follow up with Dr. Marito Ray for out patient wound care. discussed with attending at 0742 at 1137 RPT #:[id number] END OF REPORT 2020-07-04 10:47:00-00:00 [facility] ([facility]) Infectious Dis. Progress Note REPORT#:[id number] REPORT STATUS: Signed DATE:07/04/20 TIME: 104 PATIENT: HARJINDER COLUNGA UNIT #: [id number] ROOM/BED: [address] : 67 AGE: 55 SEX: M [...] PRN PRN 06/28 2014 AC 06/29 PO 04/09 2016 1747 Enoxaparin Sodium 40 MG Q24H 06/28 2014 AC / 5 SUBQ 07/29 2015 2252 Dextrose/Water 25 ML ASDIR PRN 06/28 [...] PMH uncontrolled D M, peripheral neuropathy, cataracts/blindness, [place] in 2003, and tobacco abuse presented for [...] MD on 0 07/04/20 at 1049 RPT #:[id number] END OF REPORT 2020-07-04 08:03:00-00:00 [facility]) Podiatry Progress Note REPORT#:[id number] REPORT STATUS: Signed DATE:07/04/20 TIME: 08 PATIENT: HARJINDER COLUNGA UNIT #: [id number] ROOM[facility]BED: [facility] : 67 AGE: 55 SEX: M ATTEND: Georgi,Arpit mullerebony Blandon ADM AUTHOR: Patrick Sr DPM R2 * ALL edits or amendments must be made on the [employer]/computer document * General VS/I O: Last Documented: [...] ABIs report monphasic waveforms d istal to MANAGER CARE MANAGEMENT, stenosis on RIGHT and similar results on left below popliteal. vascular consulted and they will do aortagram this week. WOund debridement performed at bedside 06/19 07/09 to beefy red bleeding tissue. No further debridement at this time. Volodymyr ssed with DSD and graham. Pt may follow up with Dr. Marito Ray for out patie nt wound care. discussed with attending at 0808 RPT #:[id number] END OF REPORT 2020-07-04 08:03:00-00:00 [facility] Podiatry Progress Note REPORT#:[id number] REPORT STATUS: Signed DATE:07/04/20 TIME: 08 PATIENT: HARJINDER COLUNGA UNIT #: [id number] ROOM/BED: 1101-A : 69 AGE: 55 SEX: M ATTEND: Arpit Laureano ADM AUTHOR: Patrick Sr DPM R2 * ALL edits or amendments must be made on the el [employer]/computer document * General VS/I O: Last Documented: Result Date Time Pulse Ox 100 07/04 729 B/P 132/81 07/04 729 B/P Mean 98.4 07/04 729 Temp 36.9 07/04 0630 Pulse 70 07/04 729 Resp 19 07/04 07 O2 Delivery Room air 07/03 1509 PATIENT [...] ABIs report monphasic waveforms d istal to MANAGER CARE MANAGEMENT, stenosis on RIGHT and similar results on [...] with attending at 0808 at 1135 RPT #:[id number] END OF REPORT 2020-07-04 08:00:00-00:00 [facility] REPORT#:[id number] REPORT STATUS: Signed DATE:07/04/20 TIME: 08 PATIENT: HARJINDER COLUNGA UNIT #: [id number] ROOM/BED: [address] : 67 AGE: 55 SEX: M ATTEND: Arpit Laureano ADM AUTHOR: Ovidio Hernandez * ALL edits or amendments must be made on the el [employer]/computer document * Subjective Chief Complaint: foot pain Comments: Interval Hx: CALEB overnight Objective General VS/I O: Vital Signs: Date Time Temp Pulse Resp B/P B/P Pulse O2 O2 F low FiO2 Mean Ox Delivery Rate 03/16 0730 98.4 70 19 132/81 98.4 100 [...] ot wrapped) Musculoskeletal: decreased ROM (R foot) Neuro/ELECTRICAL ENGINEERING TECHNICIAN: alert, oriented X 3 Ulcer: Type/cause: diabetic Duration: acute Location: foot Laterality: bilateral Stage: 1 Psychiatry: not homicidal, not suicidal, no [place] ucinations Results Findings/Data: Laboratory Tests 07/03 07/03 07/03 1846 1508 1129 Chemistry POC Glucose (74 - 106 MG/DL) 143 H 314 H 130 H Laboratory Tests 07/03 0846 Coagulation INR 1.1 PTT (Sabine) (23.4 - 37.0 SECONDS) 27.1 PT Patient/Control [...] will continue to follow at 2110 RPT #:[id number] END OF REPORT 2020-07-03 17:03:00-00:00 [facility] REPORT#:[id number] REPORT STATUS: Signed DATE:07/03/20 TIME: 1703 PATIENT: HARJINDER COLUNGA UNIT #: [id number] ROOM/BED: [address] : 67 AGE: 55 SEX: M ATTEND: Divine Laureano ADM AUTHOR: Tommy Andres PLANNING DIRECTOR * ALL edits or amendments must be made on the el [employer]computer document * Subjective Chief Complaint: Foot pain [...] ot wrapped) Musculoskeletal: decreased ROM (R foot) Neuro/ELECTRICAL ENGINEERING TECHNICIAN: alert, oriented X 3 Ulcer: Type/cause: diabetic [...] NP on 0 07/03/20 at 1704 RPT #:[id number] END OF REPORT 2020-07-03 17:02:00-00:00 [facility] ([facility]) Clinical Note REPORT#:[id number] REPORT STATUS: Signed DATE:07/03/20 TIME: 1702 PATIENT: HARJINDER COLUNGA UNIT #: [id number] ROOM/BED: [address] : 67 AGE: 55 SEX: M ATTEND: Arpit Laureano ADM AUTHOR: Tommy Andres NP * ALL edits or amendments must be made on the el [employer] document * Clinical Note Note: Had a [...] NP on 0 07/03/20 at 1703 RPT #:[id number] END OF REPORT 2020-07-03 15:12:00-00:00 [facility] ([facility]) Infectious Dis. Progress Note REPORT#:[id number] REPORT STATUS: Signed DATE:07/03/20 TIME: 1511 PATIENT: HARJINDER COLUNGA UNIT #: [id number] ROOM/BED: [address] : 69 AGE: 55 SEX: M ATTEND: Arpit Laureano ADM AUTHOR: Anam Velez MD * ALL edits or amendments must be made on the [employer]/computer document * Subjective Chief Complaint: 06-30-2020 FEELS [...] 50 MG DAILY 06/29 0900 AC 0 07/03 PO 07/29 0901 0845 Nicotine 14 MG [...] MG Q24H 06/28 2014 AC SUBQ 07/28 2016 203 Dextrose/Water 25 ML ASDIR PRN 06/28 [...] PMH uncontrolled D M, peripheral neuropathy, cataracts/blindness, [place] in 2003, and tobacco abuse presented for [...] sugar control with patient who verbalized jevon germain. 06-30-2020 WILL RE EVAL WOUNDS HOME SOON CHECK FINAL CX 07-01-2020 WOUND INFCTION , NOT DEEP >> PO ABX X 2 WEEKS GROUP B STREP KEFLEX X 2 WEEKS 07-02-2020 AWAITING [facility] INTERVENTION PO KEFLEX 08-03-2020 PO KEFLEX [facility] SURGERY TODAY Electronically Signed by Anam Velez MD on 0 07/03/20 at 1515 [facility] #:[id number] END OF REPORT 2020-07-03 13:11:00-00:00 [id number] [facility] [address] [facility] [place] [address] PATIENT NAME: HARJINDER COLUNGA ADMIT DATE: 06/28/20 ACCOUNT NO: [id number] ROOM NO: OBS14 AGE: 55 REPORT TYPE: STRESS ELECTROCARDIOGRAM SEX: [...] Wojciech Delgado MD WT: STRESS:C.CPS/JUAN MANUEL/NTS Conf#: [id number]#: [id number] Authenticated by Wojciech Delgado MD On 08/01/2020 08:04:19 AM PATIENT NAME: HARJINDER COLUNGA 0917 Electronically Signed by Wojciech Delgado MD on 0 08/01/20 at 0804 PATIENT NAME: HARJINDER COLUNGA 917 2020-07-03 13:09:00-00:00 [id number] [facility] [id number] [facility]. [address] [place] [address] PATIENT NAME: HARJINDER COLUNGA ADMIT DATE: 06/28/20 ACCOUNT NO: [id number] ROOM NO: [facility] AGE: 55 REPORT TYPE: eECHOCARDIOGRAM REPORT. SEX: M ADMITTING PHYSICIAN:Nathanael Laureano ATTENDING PHYSICIAN:Nathanael Laureano *[facility]* [address] [place] [address] Transthoracic Echocardiogram Patient: Harjinder Colunga Study Date: 07/03/2020 BP: 124 / 76 Location: [facility] URN: [id number] 0917 : 1965 Age: 55 Height: 67 in / 170.2 cm Gender: M Weight: 179 .6 lb / 81.6 kg BMI/BSA: 28.2 kg/m 2 / 1.98 m 2 *Ordering Physician: * Ramu Araujo *Interpreting Physician: * Wojciech Delgado MD *Plumber And Tinner: * Zoe Dubon Indications: Pre-operative Cardiovascular Evalua tion. Study data: Transthoracic echocardiogram. Proced ure: Transthoracic echocardiography was performed. Images were obta ined using a [employer] E95-1 cardiac ultrasound machine. Complete 2D, complet [...] S 0.77 m/sec PATIENT NAME: HARJINDER COLUNGA 0917 VTI, S 22.7 cm Mean grad, S [...] PATIENT NAME: HARJINDER COLUNGA 917 2020-07-03 12:28:00-00:[address] [facility] Cardiology Progress Note REPORT#:[id number] REPORT STATUS: Signed DATE:07/03/20 TIME: 1228 PATIENT: HARJINDER COLUNGA UNIT #: [id number] ROOM/BED: [address] : 69 AGE: 55 SEX: M ATTEND: Arpit Laureano [facility] AUTHOR: Wojciech Delgado MD * ALL edits or amendments must be made on the [employer] document * Subjective Chief Complaint: Seen and [...] % (Auto) (20.5 - 45.5 %) 22.3 [place] % (Auto) (5.5 - 11.7 %) 9.6 Eos % (Auto) (0.9 - 2.9 %) 2.1 Baso % (Auto) (0.2 - 1.0 %) 0.9 Neut # (Auto) (2.2 - 4.8 x10 3/uL) 3.63 Lymph # (Auto) (1.3 - 2.9 x10 3/uL) 1.25 L [place] # (Auto) (0.3 - 0.8 x10 3/uL) [...] 55 year old man with CAD s/p [place] (did not present to [facility] for follow-up PCI), DM, smoker presenting fo r foot wounds, podiatry evaluating for further debridement. Cardiology consulted for pre-operative evaluatio n. 1. preoperative evaluation -intermediate risk - f/u TTE and Lexiscan nuclear stress today give n past [place] and inability to exercise 2. DM Monitor blood sugar 3. Foot wounds negative for osteomyelitis on MRI Management per ID and podiatry 4. PVD Aortogram per vascular Monitor lower extremities. Electronically Signed by Wojciech Delgado MD on at 1231 RPT #:[id number] END OF REPORT 2020-07-03 12:28:00-00:00 [facility]) Cardiology Progress Note REPORT#:[id number] REPORT STATUS: Signed DATE:07/03/20 TIME: 1228 PATIENT: HARJINDER COLUNGA UNIT #: [id number] ROOM/BED: [address] : 69 AGE: 55 SEX: M ATTEND: Arpit Laureano ADM AUTHOR: Wojciech Delgado MD * ALL edits or amendments must be made on the [employer] document * See Addendum Subjective Chief Complaint: [...] % (Auto) (20.5 - 45.5 %) 22.3 [place] % (Auto) (5.5 - 11.7 %) 9.6 Eos % (Auto) (0.9 - 2.9 %) 2.1 Baso % (Auto) (0.2 - 1.0 %) 0.9 Neut # (Auto) (2.2 - 4.8 x10 3/uL) 3.63 Lymph # (Auto) (1.3 - 2.9 x10 3/uL) 1.25 L [place] # (Auto) (0.3 - 0.8 x10 3/uL) [...] 55 year old man with CAD s/p [place] (did not present to [facility] for follow-up PCI), DM, smoker presenting fo r foot wounds, podiatry evaluating for further debridement. Cardiology consulted for pre-operative evaluatio n. 1. preoperative evaluation -intermediate risk - f/u TTE and Lexiscan nuclear stress today give n past [place] and inability to exercise 2. DM Monitor blood sugar 3. Foot wounds negative for osteomyelitis on MRI Management per ID and podiatry 4. PVD Aortogram per vascular Monitor lower extremities. Electronically Signed by Wojciech Delgado MD on at 1231 Addendum 1: 07/03/20 1313 by Wojciehc Delgado MD Echo showed normal LVEF and [...] Wojciech Delgado MD on at 1319 RPT #:[id number] END OF REPORT 2020-07-03 07:59:00-00:00 [facility] Podiatry Progress Note REPORT#:[id number] REPORT STATUS: Signed DATE:07/03/20 TIME: 0759 PATIENT: HARJINDER COLUNGA UNIT #: [id number] ROOM/BED: [address] : 67 AGE: 55 SEX: M ATTEND: Divine Laureano ADM AUTHOR: Patrick Sr DPM R2 * ALL edits or amendments must be made on the [employer] document * General VS/I O: Last Documented: [...] ABIs report monphasic waveforms d istal to MANAGER CARE MANAGEMENT, stenosis on RIGHT and similar results on left below popliteal. vascular consulted and they will do aortagram next week. WOund debridement performed at bedside 06/19 07/09 to beefy red bleeding tissue. No further debridement at this time. Volodymyr ssed with DSD and aquacel. discussed with attending at 0804 [facility] #:[id number] END OF REPORT 2020-07-03 07:59:00-00:00 [facility] Podiatry Progress Note REPORT#:[id number] REPORT STATUS: Signed DATE:07/03/20 TIME: 758 PATIENT: HARJINDER COLUNGA UNIT #: [id number] ROOM/BED: [address] : 69 AGE: 55 SEX: M ATTEND: Arpit Laureano ADM AUTHOR: Patrick Sr DPM R2 * ALL edits or amendments must be made on the [employer] document * General VS/I O: Last Documented: [...] ABIs report monphasic waveforms d istal to MANAGER CARE MANAGEMENT, stenosis on RIGHT and similar results on left below popliteal. vascular consulted and they will do aortagram next week. WOund debridement performed at bedside 06/19 07/09 to beefy red bleeding tissue. No further debridement at this time. Volodymyr ssed with DSD and aquacel. discussed with attending at 0804 at 113 RPT #:[id number] END OF REPORT 2020-07-02 16:40:00-00:00 [facility] ([facility]) Int. Cardiology Consult Note REPORT#:[id number] REPORT STATUS: Signed DATE:07/02/20 TIME: 1640 PATIENT: HARJINDER COLUNGA UNIT #: [id number] ROOM/BED: [address] : 67 AGE: 55 SEX: M ATTEND: Arpit Laureano ADM AUTHOR: Ramu Araujo MD * ALL edits or amendments must be made on the [employer]/computer document * History of Present Illness History of Present Illness Requesting clinician: Georgi Reason for consult: Pre-operative assessment Chief complaint: Foot wounds HPI: 55-year-old man, legally blind, DM, CAD with untreated [place] in 2003 (patient did not follow-up to [...] MG/DL LAST PM ). Additional medical history: [place] in 2003 Additional surgical history: None Family [...] 07/02 1516 O2 Delivery Room air 07/02 1516 Temp 36.7 07/02 1516 Pulse 76 07/02 1516 Resp 18 07/02 1516 PATIENT WEIGHT: Weight (lb): 180 Weight (oz): 6.04 Weight (kg): 81.818 General appearance: alert, awake Head/Eyes: atraumatic, clear cornea ENT: moist mucosal membranes, normal nose Neck: full range of motion, non-tender Cardiovascular: CV assessment: regular rate and rhythm, normal heart sounds Respiratory: clear to auscultation, no distress Abdomen: soft, non-tender Musculoskeletal: full range of motion Neuro/ELECTRICAL ENGINEERING TECHNICIAN: alert, oriented X 3 Skin: foot wounds [...] 55 year old man with CAD s/p [place] (did not present to [facility] for follow-up PCI), DM, smoker presenting fo r foot wounds, podiatry evaluating for further debridement. Cardiology consulted for pre-operative evaluatio n. 1. preoperative evaluation -TTE -nuclear stress given past [place] and inability to e xercise 2. DM Monitor blood sugar 3. Foot wounds negative for osteomyelitis on MRI Management per ID and podiatry 4. PVD Aortogram per vascular Monitor lower extremities. at 1648 RPT #:[id number] END OF REPORT 2020-07-02 15:12:00-00:00 [facility] Progress Note REPORT#:[id number] REPORT STATUS: Signed DATE:07/02/20 TIME: 1511 PATIENT: HARJINDER COLUNGA UNIT #: [id number] ROOM[facility]BED: [facility] : 67 AGE: 55 SEX: M ATTEND: Arpit Laureano ADM AUTHOR: Nathanael Laureano ta * ALL edits or amendments must be made on the [employer]/computer document * Subjective Chief Complaint: Pain over [...] 1917 98.1 77 16 118/75 89.1 99 Current Medications Sig/Bita Start time Last Medication Dose Route Stop Time Status Admin Cephalexin 500 MG Q6HR 07/01 1200 AC 07/02 PO 07/06 1159 1233 Losartan Potassium 50 MG DAILY 06/29 899 AC PO 07/29 900 0912 Nicotine 14 MG DAILY 06/29 899 AC 07/02 TRANSDERM 07/29 900 0912 Insulin Human Lispro 5 UNITS AC 06/29 0730 AC 07/02 SUBQ 07/29 0731 1233 Insulin Glargine 15 UNITS BEDTIME 06/28 2099 AC 07/01 SUBQ 07/28 210 203 Clonidine [...] of care Pain control at 2240 RPT #:[id number] END OF REPORT 2020-07-02 11:55:00-00:00 [facility]) Vascular Surgery Progress Note REPORT#:[id number] REPORT STATUS: Signed DATE:07/02/20 TIME: 1155 PATIENT: HARJINDER COLUNGA UNIT #: [id number] ROOM/BED: [address] : 69 AGE: 55 SEX: M ATTEND: Arpit Laureano ADM AUTHOR: Enrrique Zuñiga MD R2 * ALL edits or amendments must be made on the el [employer]computer document * Subjective Comments: Patient reports unchanged co mplaints of R foot wound. No acute overnight events reported. Review of Systems All systems rev neg: except as marked Objective General VS/I O Last Documented: Result Date Time Pulse Ox 98 07/02 1109 B/P 119/74 07/02 1109 B/P Mean 89.1 07/02 1109 O2 Delivery Room air 07/02 110 Temp 36.8 07/02 1109 Pulse 76 07/02 [...] Do ppler study -: R posterior tibialis Neuro/ELECTRICAL ENGINEERING TECHNICIAN: alert, oriented X 3, normal speech Skin: [...] uncontr olled DM, peripheral neuropathy, cataracts/blindness , [place] in 2003, and tobacco abuse presented with [...] MD R2 on 07/02 at 1202 RPT #:[id number] END OF REPORT 2020-07-02 11:55:00-00:00 [facility] Vascular Surgery Progress Note REPORT#:[id number] REPORT STATUS: Signed DATE:07/02/20 TIME: 1155 PATIENT: HARJINDER COLUNGA UNIT #: [id number] ROOM/BED: [address] : 69 AGE: 55 SEX: M ATTEND: Arpit Laureano ADM AUTHOR: Enrrique Zuñiga MD R2 * ALL edits or amendments must be made on the [employer]/computer document * Enrrique Zuñiga 07/02/20 1155: Subjective [...] Do ppler study -: R posterior tibialis Neuro/ELECTRICAL ENGINEERING TECHNICIAN: alert, oriented X 3, normal speech Skin: [...] uncontr olled DM, peripheral neuropathy, cataracts/blindness , [place] in 2003, and tobacco abuse presented with [...] MD R2 on 07/02 at 1202 RPT #:[id number] END OF REPORT 2020-07-02 11:55:00-00:00 [facility] Vascular Surgery Progress Note REPORT#:[id number] REPORT STATUS: Signed DATE:07/02/20 TIME: 1155 PATIENT: HARJINDER COLUNGA UNIT #: [id number] ROOM/BED: [address] : 69 AGE: 55 SEX: M ATTEND: Arpit Laureano [facility] AUTHOR: Enrrique Zuñiga MD R2 * ALL edits or amendments must be made on the el [employer]computer document * Enrrique Zuñiga 07/02/20 1155: Subjective [...] Do ppler study -: R posterior tibialis Neuro/ELECTRICAL ENGINEERING TECHNICIAN: alert, oriented X 3, normal speech Skin: [...] uncontr olled DM, peripheral neuropathy, cataracts/blindness , [place] in 2003, and tobacco abuse presented with [...] on 07/02 at 1202 at 1024 RPT #:[id number] END OF REPORT 2020-07-02 09:49:00-00:00 [facility] ([facility]) Infectious Dis. Progress Note REPORT#:[id number] REPORT STATUS: Signed DATE:07/02/20 TIME: 948 PATIENT: HARJINDER COLUNGA UNIT #: [id number] ROOM/BED: [address] : 69 AGE: 55 SEX: M ATTEND: Arpit Laureano ADM AUTHOR: Anam Velez MD * ALL edits or amendments must be made on the [employer]/computer document * Subjective Chief Complaint: 06-30-2020 FEELS [...] DAILY 06/29 0900 AC PO 07/29 0901 0912 Nicotine 14 MG DAILY 06/29 0900 AC 07/02 TRANSDERM 07/29 0901 0912 Insulin Human Lispro 5 UNITS AC 06/29 0730 AC 0 07/02 SUBQ 07/29 0731 0912 Insulin Glargine 15 UNITS BEDTIME 06/28 2100 AC 07/01 SUBQ 07/28 2100 203 Linezolid 600 MG Q12HR 06/28 2100 DC 07/01 PO 07/12 2058 0901 Cefepime HCl 1 GM Q8H 06/28 2030 DC 03/13 Sterile Water 10 ML IV 07/12 2028 [...] PMH uncontrolled D M, peripheral neuropathy, cataracts/blindness, [place] in 2003, and tobacco abuse presented for [...] sugar control with patient who verbalized jevon germain. 06-30-2020 WILL RE EVAL WOUNDS HOME SOON CHECK FINAL CX 07-01-2020 WOUND INFCTION , NOT DEEP >> PO ABX X 2 WEEKS GROUP B STREP KEFLEX X 2 WEEKS 07-02-2020 AWAITING [facility] INTERVENTION PO KEFLEX Electronically Signed by Anam Velez MD on 0 07/02/20 at 0951 RPT #:[id number] END OF REPORT 2020-07-02 07:54:00-00:00 [facility] Podiatry Progress Note REPORT#:[id number] REPORT STATUS: Signed DATE:07/02/20 TIME: 0754 PATIENT: HARJINDER COLUNGA UNIT #: [id number] ROOM/BED: [address] : 69 AGE: 55 SEX: M ATTEND: Arpit Laureano ADM AUTHOR: Patrick Sr DPM R2 * ALL edits or amendments must be made on the [employer]/computer document * General VS/I O: Last Documented: [...] ABIs report monphasic waveforms d istal to MANAGER CARE MANAGEMENT, stenosis on RIGHT and similar results on left below popliteal. vascular consulted and they will do aortagram next week. WOund debridement performed at bedside 06/19 07/09 to beefy red bleeding tissue. Additional, deeper debridement needed in OR later this week. Dressed with DSD and betadine discussed with attending at 0801 RPT #:[id number] END OF REPORT 2020-07-02 07:54:00-00:00 [facility] ([facility]) Podiatry Progress Note REPORT#:[id number] REPORT STATUS: Signed DATE:07/02/20 TIME: 753 PATIENT: HARJINDER COLUNGA UNIT #: [id number] ROOM/BED: [address] : 69 AGE: 55 SEX: M ATTEND: Arpit Laureano ADM AUTHOR: Patrick Sr DPM R2 * ALL edits or amendments must be made on the [employer]/computer document * General VS/I O: Last Documented: [...] ABIs report monphasic waveforms d istal to MANAGER CARE MANAGEMENT, stenosis on RIGHT and similar results on left below popliteal. vascular consulted and they will do aortagram next week. WOund debridement performed at bedside 06/19 07/09 to beefy red bleeding tissue. Additional, deeper debridement needed in OR later this week. Dressed with DSD and betadine discussed with attending at 0801 at 1130 RPT #:[id number] END OF REPORT 2020-07-01 19:59:00-00:00 [facility] ([facility]) Vascular Surgery Consult Note REPORT#:[id number] REPORT STATUS: Signed DATE:07/01/20 TIME: 1958 PATIENT: HARJINDER COLUNGA UNIT #: [id number] [address] AGE: 55 SEX: M [...] uncontr olled DM, peripheral neuropathy, cataracts/blindness , [place] in [place], and tobacco ab use presented [...] MG/DL LAST PM ). Additional medical history: [place] in 2003 Additional surgical history: None Drug [...] Do ppler study -: R posterior tibialis. Neuro/ELECTRICAL ENGINEERING TECHNICIAN: alert, oriented X 3 Skin: dry, normal [...] uncontr olled DM, peripheral neuropathy, cataracts/blindness , [place] in 2003, and tobacco abuse presented with f or foot ulcers and PAD AFVSS b/l foot ulcers worse on lef t side but pain and claudication worse on the right side. labs an imaging reviewed plan: will discuss with attending plans for artogram n ext week continue medical managment podiatry and infectious disease onboard. at 2013 RPT #:[id number] END OF REPORT 2020-07-01 19:59:00-00:00 [facility]) Vascular Surgery Consult Note REPORT#:[id number] REPORT STATUS: Signed DATE:07/01/20 TIME: 1958 PATIENT: HARJINDER COLUNGA UNIT #: [id number] ROOM/BED: [address] : 69 AGE: 55 SEX: M ATTEND: Arpit Laureano ADM AUTHOR: Eliot Vale MD R1 * ALL edits or amendments must be made on the el ectronic/computer document * Eliot Vale 07/01/201958: History of Present Illness Requesting Clinician: Patrick Sr MD Reason for consult: PAD , nonhealing ulcers Chief complaint: nonhealing ulcers, LLE claudication HPI: 55 year old with PMH uncontr olled DM, peripheral neuropathy, cataracts/blindness , [place] in [place], and tobacco ab use presented [...] MG/DL LAST PM ). Additional medical history: [place] in 2003 Additional surgical history: None Drug [...] I O ending at 0700: 07/01 0700 03/12 1900 Intake Total 940 Output Total 504 [...] Do ppler study -: R posterior tibialis. Neuro/ELECTRICAL ENGINEERING TECHNICIAN: alert, oriented X 3 Skin: dry, normal [...] uncontr olled DM, peripheral neuropathy, cataracts/blindness , [place] in [place], and tobacco abuse presented with [...] int ervention planned. appreciate consult. at 2014 RPT #:[id number] END OF REPORT 2020-07-01 19:59:00-00:00 [facility] ([facility]) Vascular Surgery Consult Note REPORT#:[id number] REPORT STATUS: Signed DATE:07/01/20 TIME: 1958 PATIENT: HARJINDER COLUNGA UNIT #: [id number] ROOM/BED: [address] : [birth year] AGE: 55 SEX: M ATTEND: Arpit Laureano ADM AUTHOR: Eliot Vale MD R1 * ALL edits or amendments must be made on the [employer]/computer document * Eliot Vale 07/01/201958: History of Present Illness Requesting Clinician: Patrick Sr MD Reason for consult: PAD , nonhealing ulcers Chief complaint: nonhealing ulcers, LLE claudication HPI: 55 year old with PMH uncontr olled DM, peripheral neuropathy, cataracts/blindness , [place] in [place], and tobacco ab use presented [...] MG/DL LAST PM ). Additional medical history: [place] in 2003 Additional surgical history: None Drug [...] Do ppler study -: R posterior tibialis. Neuro/ELECTRICAL ENGINEERING TECHNICIAN: alert, oriented X 3 Skin: dry, normal [...] uncontr olled DM, peripheral neuropathy, cataracts/blindness , [place] in [place], and tobacco abuse presented with [...] ervention planned. appreciate consult. at 2014 at [facility] RPT #:[id number] END OF REPORT 2020-07-01 17:50:00-00:00 [facility] Progress Note REPORT#:[id number] REPORT STATUS: Signed DATE:07/01/20 TIME: 1749 PATIENT: HARJINDER COLUNGA UNIT #: [id number] ROOM/BED: [address] : [birth year] AGE: 55 SEX: M ATTEND: Arpit Laureano [facility] AUTHOR: Nathanael Laureano ta * ALL edits or amendments must be made on the el [employer]/computer document * Subjective Chief Complaint: Pain over the bilateral foot Nausea Patient reports: Yes: pain. Comments: Allergies Allergy Severity Reaction Updated Coded No Known Allergies 10/08/19 Laboratory Tests: 07/01 07/01 06/30 1158 0752 1941 Chemistry POC Glucose (74 - 106 [...] DAILY 06/29 0900 AC PO 07/29 0901 0901 Nicotine 14 MG DAILY 06/29 0900 AC 07/01 TRANSDERM 07/29 0901 0902 Insulin Human Lispro 5 UNITS AC 06/29 0730 AC 0 07/01 SUBQ 07/29 0731 1410 Insulin Glargine 15 UNITS BEDTIME 06/28 2100 AC 06/30 SUBQ 07/28 Linezolid 600 MG Q12HR 06/28 2099 DC 07/01 PO 07/12 205 0901 Cefepime HCl 1 GM Q8H 06/28 2030 DC 07/01 Sterile Water 10 ML IV 07/124 [...] of care Pain control at 2023 RPT #:[id number] END OF REPORT 2020-07-01 11:04:00-00:00 [facility] ([facility]) Infectious Dis. Progress Note REPORT#:[id number] REPORT STATUS: Signed DATE:07/01/20 TIME: 1103 PATIENT: HARJINDER COLUNGA UNIT #: [id number] ROOM/BED: [address] : 67 AGE: 55 SEX: M ATTEND: Arpit Laureano ADM AUTHOR: Anam Velez MD * ALL edits or amendments must be made on the el [employer]/computer document * Subjective Chief Complaint: 06-30-2020 FEELS FINE PODIATRY NOTED CX + STREPTOCOCCI 07-01-2020 HAD BED SIDE DEBRIDMENT DONE CX NOTED WOUNDS NOTED EDEUCATED ABOUT FOOT CARE ABD FOOT WEAR Objective General VS/I O: Microbiology: 06/28 1857 FOOT: Wound Culture - COMP BETA-HEMOLYTIC STREP GROUP B 06/28 1857 FOOT: Gram Stain - COMP 06/29 1527 BLOOD: Blood Culture - RES 06/28 1526 BLOOD: Blood Culture - RES Current Medications Sig/Bita Start time Last Medication Dose Route Stop Time Status Admin Losartan Potassium 50 MG DAILY 06/29 899 AC PO 07/29 900 09 Nicotine 14 MG DAILY 06/29 899 AC 07/01 TRANSDERM 07/29 0901 0902 Insulin [...] Impression By: [email or web address] - Michael Bai MD [facility] [...] Bai MD ULTRASOUND - DUP LE ART EPTER 06/30 1730 Report Impression - Status: SIGNED [...] PMH uncontrolled D M, peripheral neuropathy, cataracts/blindness, [place] in [place], and tobacco abuse presented for [...] sugar control with patient who verbalized jevon germain. 06-30-2020 WILL RE EVAL WOUNDS HOME SOON CHECK FINAL CX 07-01-2020 WOUND INFCTION , NOT DEEP >> PO ABX X 2 WEEKS GROUP B STREP KEFLEX X 2 WEEKS Electronically Signed by Anam Velez MD on 0 07/01/20 at 1107 RPT #:[id number] END OF REPORT 2020-07-01 09:46:00-00:00 [facility] ([facility]) Podiatry Progress Note REPORT#:[id number] REPORT STATUS: Signed DATE:07/01/20 TIME: 945 PATIENT: HARJINDER COLUNGA UNIT #: [id number] ROOM/BED: [address] : [birth year] AGE: 55 SEX: M ATTEND: Arpit Laureano [facility] AUTHOR: Patrick Sr DPM R2 * ALL edits or amendments must be made on the [employer]/computer document * General VS/I O: Last Documented: [...] ABIs report monphasic waveforms d istal to MANAGER CARE MANAGEMENT, stenosis on RIGHT and similar results on left below popliteal. vascular consul yana. WOund debridement performed to beefy red bleeding tissue. Dressed with aq uacell and DSD. Procedure 07/01/20 Pre-op dx: peter foot diabetic wounds Post op dx: same Procedure: wound debridement of peter feet location: bedside Surgeon: Dr. Marito Ray Coke Burner: Dr. Patrick Sr Complications: none EBL: < [...] peter. discussed with attending at 1008 RPT #:[id number] END OF REPORT 2020-07-01 09:46:00-00:00 [facility] Podiatry Progress Note REPORT#:[id number] REPORT STATUS: Signed DATE:07/01/20 TIME: 945 PATIENT: HARJINDER COLUNGA UNIT #: [id number] ROOM/BED: [facility]-A : 67 AGE: 55 SEX: M [...] ABIs report monphasic waveforms d istal to MANAGER CARE MANAGEMENT, stenosis on RIGHT and similar results on left below popliteal. vascular consul yana. WOund debridement performed to beefy red bleeding tissue. Dressed with aq uacell and DSD. Procedure 07/01/20 Pre-op dx: peter foot diabetic wounds Post op dx: same Procedure: wound debridement of peter feet location: bedside Surgeon: Dr. Marito Ray Coke Burner: Dr. Patrick Sr Complications: none EBL: < [...] with attending at 1008 at 1135 RPT #:[id number] END OF REPORT 2020-06-30 22:00:00-00:00 [facility] Progress Note REPORT#:[id number] REPORT STATUS: Signed DATE:06/30/20 TIME: 2199 PATIENT: HARJINDER COLUNGA UNIT #: [id number] ROOM/BED: [address] : [birth year] AGE: 55 SEX: M ATTEND: Arpit Laureano AUTHOR: Nathanael Laureano * ALL edits or amendments must be made on the el [employer]computer document * Subjective Chief Complaint: Pain over [...] Impression By: [email or web address] - Donaldo Wen MD Recent Impressions: RADIOLOGY - XR CHEST 1 V 06/28 1530 Report Impression - Status: SIGNED Entered: 06/28/2020 1539 IMPRESSION: No acute abnormality identified. Impression By: [email or web address] Guero Linda M.D. RADIOLOGY - XR FOOT [...] low FiO2 Mean Ox Delivery Rate 06/30 1942 97.7 84 16 127/81 96.5 98 06/30 [...] Sodium 40 MG Q24H 06/28 2014 AC 03/1 2 SUBQ 07/28 Dextrose/Water 25 ML ASDIR [...] of care Pain control at 1504 RPT #:[id number] END OF REPORT 2020-06-30 18:01:00-00:00 [facility] ([facility]) Infectious Dis. Progress Note REPORT#:[id number] REPORT STATUS: Signed DATE:06/30/20 TIME: 180 PATIENT: HARJINDER COLUNGA UNIT #: [id number] ROOM/BED: [address] : [birth year] AGE: 55 SEX: M ATTEND: Arpit Laureano ADM AUTHOR: Anam Velez MD * ALL edits or amendments must be made on the el [employer]/computer document * Subjective Chief Complaint: 06-30-2020 FEELS FINE PODIATRY NOTED CX + STREPTOCOCCI Objective General VS/I O: Laboratory Tests 06/29/20 0845: [Embedded Image Not Available] 06/29/20 0631: [Embedded Image Not Available] Microbiology: 06/28 1857 FOOT: Wound Culture - RES BETA-HEMOLYTIC STREP [...] 06/28 2100 AC 06/29 SUBQ 07/28 2101 210 Linezolid 600 MG Q12HR 06/28 2100 AC 06/30 PO 07/12 205 1019 Cefepime HCl 1 GM Q8H 06/28 2029 AC 06/30 Sterile Water 10 ML IV 07/12 2028 1321 Clonidine HCl 0.1 MG Q6H PRN PRN 06/28 2014 AC 06/29 PO 07/28 2016 1747 Enoxaparin Sodium 40 MG Q24H 06/28 2014 AC 06/19 1 SUBQ 07/28 2016 2004 Dextrose/Water 25 ML ASDIR PRN 06/28 1914 AC IV 07/29 1915 Glucagon 1 MG ASDIR PRN 06/28 1914 AC IM 07/29 1915 Insulin Human Lispro See Dose ASDIR 06/28 191 AC 06/30 Insts (1) SUBQ 07/28 1916 1320 Dose Instructions: (1)Insulin Human Lispro: LOW [...] PMH uncontrolled D M, peripheral neuropathy, cataracts/blindness, [place] in 2003, and tobacco abuse presented for [...] MD on 0 06/30/20 at 1804 RPT #:[id number] END OF REPORT 2020-06-30 08:46:00-00:00 [facility] ([facility]) Podiatry Progress Note REPORT#:[id number] REPORT STATUS: Signed DATE:06/30/20 TIME: 0846 PATIENT: HARJINDER COLUNGA UNIT #: [id number] ROOM/BED: [facility]-A : 69 AGE: 55 SEX: M ATTEND: GeorgiRejirafael yohanaebony Blandon ADM AUTHOR: Patrick Sr DPVasquez R2 * ALL edits or amendments must be made on the el [employer]/computer document * General VS/I O: Last Documented: [...] with attending at 0853 at 1135 RPT #:[id number] END OF REPORT 2020-06-30 08:46:00-00:00 [facility] REPORT#:[id number] REPORT STATUS: Signed DATE:06/30/20 TIME: 845 PATIENT: HARJINDER COLUNGA UNIT #: [id number] ROOM/BED: [address] : 69 AGE: 55 SEX: M ATTEND: Arpit Laureano ADM AUTHOR: Patrick Sr DPM R2 * ALL edits or amendments must be made on the el [employer]/computer document * General VS/I O: Last Documented: Result Date Time Pulse Ox 97 06/30 724 B/P 136/82 06/30 724 B/P Mean 99.8 06/30 724 Temp 36.9 06/30 0725 Pulse 79 06/30 [...] wet-to-dry. discussed with attending at 0853 RPT #:[id number] END OF REPORT 2020-06-29 23:21:00-00:00 [facility] Progress Note REPORT#:[id number] REPORT STATUS: Signed DATE:06/29/20 TIME: 2320 PATIENT: HARJINDER COLUNGA UNIT #: [id number] ROOM/BED: [address] : 69 AGE: 55 SEX: M ATTEND: Arpit Laureano ADM AUTHOR: Nathanael Laureano * ALL edits or amendments must be made on the el [employer]/computer document * Subjective Chief Complaint: Pain over the bilateral foot Nausea Patient reports: Yes: pain. Comments: Allergies Allergy Severity Reaction Updated Coded No Known Allergies 10/08/19 Laboratory Tests 06/29/20 0845: [Embedded Image Not Available] 06/29/20 0631: [Embedded Image Not Available] 06/28/20 1527: [Embedded Image Not Available] Laboratory Tests: 06/29 06/29 06/29 06/29 06/29 1946 1517 1142 0845 0764 Chemistry Sodium (137 - 145 mmol/L) 134 [...] % (Auto) (20.5 - 45.5 %) 24.1 [place] % (Auto) (5.5 - 11.7 %) 7.7 Eos % (Auto) (0.9 - 2.9 %) 1.5 Baso % (Auto) (0.2 - 1.0 %) 0.5 Neut # (Auto) (2.2 - 4.8 x10 3/uL) 4.30 Lymph # (Auto) (1.3 - 2.9 x10 3/uL) 1.57 [place] # (Auto) (0.3 - 0.8 x10 3/uL) [...] the in trinsic foot musculature. Impression By: KelliDarline - Michael Bai MD Vital Signs: Date [...] 09 0846 Nicotine 14 MG DAILY 06/29 0900 AC 06/29 TRANSDERM 07/29 0901 0847 Insulin [...] of care Pain control at 1942 RPT #:[id number] END OF REPORT 2020-06-29 09:35:00-00:00 [facility] ([facility]) Infect Disease Consult Note REPORT#:[id number] REPORT STATUS: Signed DATE:06/29/20 TIME: 934 PATIENT: HARJINDER COLUNGA UNIT #: [id number] ROOM/BED: [address] : 69 AGE: 55 SEX: M ATTEND: Arpit Laureano ADM AUTHOR: Harjinder Garner MD R1 * ALL edits or amendments must be made on the el [employer]/computer document * History of Present Illness HPI: 55yoWM w/ PMH uncontrolled D M, peripheral neuropathy, cataracts/blindness, [place] in 2003, and tobacco abuse presented for [...] MG/DL LAST PM ). Additional medical history: [place] in 2003 Additional surgical history: None Drug [...] 142/88 06/29 728 B/P Mean 105.8 06/29 0729 Temp 98.6 06/29 0729 Pulse 75 06/29 0729 Resp 16 06/29 728 O2 Delivery Room [...] to the BL leg above the ankle. Neuro/ELECTRICAL ENGINEERING TECHNICIAN: alert, oriented X 3 Results Findings/Data: Laboratory [...] (20.5 - 45.5 %) 24.1 17.3 L [place] % (Auto) (5.5 - 11.7 %) 7.7 6.0 Eos % (Auto) (0.9 - 2.9 %) 1.5 0.9 Baso % (Auto) (0.2 - 1.0 %) 0.5 0.7 Neut # (Auto) (2.2 - 4.8 x10 3/uL) 4.30 5.68 H Lymph # (Auto) (1.3 - 2.9 x10 3/uL) 1.57 1.32 [place] # (Auto) (0.3 - 0.8 x10 3/uL) [...] pH (5.0 - 8.0) 5.0 Ur Specific [place] (<1.030) 1.029 Urine Protein (Negative mg/dL) 30 [...] PMH uncontrolled D M, peripheral neuropathy, cataracts/blindness, [place] in [place], and tobacco abuse presented for [...] understandin g. Attestations Attestation needed: teaching physician at 1003 RPT #:[id number] END OF REPORT 2020-06-29 09:35:00-00:00 [facility] Infect Disease Consult Note REPORT#:[id number] REPORT STATUS: Signed DATE:06/29/20 TIME: 934 PATIENT: HARJINDER COLUNGA UNIT #: [id number] [address] AGE: 55 SEX: M ATTEND: Arpit Laureano [facility] AUTHOR: Harjinder Garner MD R1 * ALL edits or amendments must be made on the el [employer]/computer document * Harjinder Garner 06/29/20 0935: History of Present Illness HPI: 55yoWM w/ PMH uncontrolled D M, peripheral neuropathy, cataracts/blindness, [place] in [place], and tobacco abuse presented for [...] MG/DL LAST PM ). Additional medical history: [place] in 2003 Additional surgical history: None Drug [...] 142/88 06/29 07 B/P Mean 105.8 06/29 0729 Temp 98.6 [...] to the BL leg above the ankle. Neuro/ELECTRICAL ENGINEERING TECHNICIAN: alert, oriented X 3 Results Findings/Data: Laboratory [...] (20.5 - 45.5 %) 24.1 17.3 L [place] % (Auto) (5.5 - 11.7 %) 7.7 6.0 Eos % (Auto) (0.9 - 2.9 %) 1.5 0.9 Baso % (Auto) (0.2 - 1.0 %) 0.5 0.7 Neut # (Auto) (2.2 - 4.8 x10 3/uL) 4.30 5.68 H Lymph # (Auto) (1.3 - 2.9 x10 3/uL) 1.57 1.32 [place] # (Auto) (0.3 - 0.8 x10 3/uL) [...] pH (5.0 - 8.0) 5.0 Ur Specific [place] (<1.030) 1.029 Urine Protein (Negative mg/dL) 30 [...] PMH uncontrolled D M, peripheral neuropathy, cataracts/blindness, [place] in [place], and tobacco abuse presented for [...] MD on 0 06/29/20 at 1505 RPT #:[id number] END OF REPORT 2020-06-29 07:33:00-00:00 [facility] Podiatry Progress Note REPORT#:[id number] REPORT STATUS: Signed DATE:06/29/20 TIME: 732 PATIENT: HARJINDER COLUNGA UNIT #: [id number] ROOM/BED: [address] : 69 AGE: 55 SEX: M ATTEND: Arpit Laureanokata ADM AUTHOR: Patrick Sr DPM R2 * ALL edits or amendments must be made on the el [employer]computer document * General VS/I O: Last Documented: Result Date Time Pulse Ox 97 06/29 728 B/P 142/88 06/29 728 B/P Mean 105.8 06/29 728 Temp 37.0 06/29 728 Pulse 75 06/29 728 Resp 16 06/29 728 O2 Delivery Room air 06/28 1458 24 hour I O ending at 0700: 06/29 1900 Intake Total Output Total Balance Patient [...] wet-to-dry. discussed with attending at 0738 at 1138 RPT #:[id number] END OF REPORT 2020-06-29 07:33:00-00:00 [facility] ([facility]) Podiatry Progress Note REPORT#:[id number] REPORT STATUS: Signed DATE:06/29/20 TIME: 732 PATIENT: HARJINDER COLUNGA UNIT #: [id number] ROOM/BED: [address] : 69 AGE: 55 SEX: M ATTEND: Arpit Laureano ADM AUTHOR: Patrick Sr DPVasquez R2 * ALL edits or amendments must be made on the [employer] document * General VS/I O: Last Documented: [...] wet-to-dry. discussed with attending at 0738 [facility] #:[id number] END OF REPORT 2020-06-28 20:01:00-00:00 [id number] [facility] [address] [facility] [place] [address] PATIENT NAME: HARJINDER COLUNGA ADMIT DATE: 06/28/20 ACCOUNT NO: [id number] ROOM NO: [facility] AGE: 55 REPORT TYPE: HISTORY AND PHYSICAL SEX: M ADMITTING PHYSICIAN:Nathanael Laureano ATTENDING PHYSICIAN:Nathanael Laureano ADMISSION DATE: 06/28/2020 CHIEF COMPLAINT: The patient was brought in with wound over the left foot. HISTORY OF PRESENT ILLNESS: This is a 55 -year-old male. The patient is legally blind, who moved from [facility] a a year ago and patient states he has not seen and established any primary care doctor and gets his medications through the ER. The patient states that he i s not sure how long he has the wound, it is going on for the past few months and he has not seen a [facility] doctor. Wound was found by the [...] By: Nathanael Laureano MD WT: HP:ALEC/THU./NTS Conf#: [id number]/DID#: [id number] Authenticated by Nathanael Laureano MD O n 06/29/2020 09:55:13 PM at 2158 PATIENT NAME: HARJINDER COLUNGA 917 2020-06-28 18:47:00-00:00 [facility] ([facility]) History Physical - Adult REPORT#:[id number] REPORT STATUS: Signed DATE:06/28/20 TIME: 1846 PATIENT: HARJINDER COLUNGA UNIT #: [id number] ROOM/BED: [place] [address] : 69 AGE: 55 SEX: M ATTEND: Arpit Laureano AUTHOR: Nathanael Laureano * ALL edits or amendments must be made on the [employer]/computer document * History Past medical history: Reports: Diabetes mellitus (BS 168 MG/DL LAST PM ). Additional medical history: [place] in 2003 Additional surgical history: None Drug use: Denies recreational drugs Smoking status: Smoking status for patients 13 years old or old er: Current every day smoker Other social history: Hx of substance and alcoho l abuse Medication/Allergy-Vaccine Hx Allergies: Coded Allergies: No Known Allergies (10/08/19) at 1937 RPT #:[id number] END OF REPORT 2020-06-28 18:38:00-00:00 [id number] [facility] [address] [place] [address] PATIENT NAME: HARJINDER COLUNGA ADMIT DATE: 06/28/20 ACCOUNT NO: [id number] ROOM NO: [facility] AGE: 55 REPORT TYPE: CONSULTATION SEX: M [...] for Marito Ray DPM WT: CON:ALEC/JOSELIN/LOTTIE Conf#: [id number]/DID#: [id number] PATIENT NAME: HARJINDER COLUNGA 917 Authenticated by Patrick Sr DPM On 06/19 07:09:44 AM Authenticated by Marito Ray DPM On 07/05/2020 11:31:10 AM at 1131 at 1131 PATIENT NAME: HARJINDER COLUNGA 917 2020-06-28 16:47:00-00:00 [facility] ([facility]) EMERGENCY PROVIDER REPORT REPORT#:[id number] REPORT STATUS: Signed DATE:06/28/20 TIME: 1646 PATIENT: HARJINDER COLUNGA UNIT #: [id number] ROOM/BED: [address] AGE: 55 SEX: M PCP PHYS: No Primary or Family Ph ysician SERVICE AUTHOR: Giovany Landa MD R1 * ALL edits or amendments must be made on the [employer]/computer document * Giovany Landa V 06/28/20 1647: [...] are a. General Initial Greet Date/Time 06/28/20 4410 Presentation Chief Complaint Diabetic foot wound Hx [...] MG/DL LAST PM ). Additional Medical History [place] in 2003 Additional Surgical History None Drug [...] L foot ulcer on ball of foot [id number] wit h scattered ulcer throughout the foot. [...] Consultation Consultation Referral/Consult Name Obed Lopez DPM Bulb Inspector Called Podiatry Requested Call Time 1657 Requested Call Date 06/28/20 Call Returned Call returned Call Returned Time 1657 Call Returned Date 06/28/20 Bulb Inspector Will see patient Patient Discharge Departure Disposition Decision Admit Admit Physician Name Nathanael Laureano Rasheed 06/28/20 1716: Physical Exam Vital Signs Vital Signs First Documented: Result Date Time O2 Delivery Room air 06/28 1458 Pulse Ox 97 06/28 1503 Temp 37.4 10 1503 Pulse 109 / 1503 Resp 18 06/28 1503 B/P 129/81 [...] (Auto) (20.5 - 45.5 %) 17.3 L [place] % (Auto) (5.5 - 11.7 %) 6.0 Eos % (Auto) (0.9 - 2.9 %) 0.9 Baso % (Auto) (0.2 - 1.0 %) 0.7 Neut # (Auto) (2.2 - 4.8 x10 3/uL) 5.68 H Lymph # (Auto) (1.3 - 2.9 x10 3/uL) 1.32 [place] # (Auto) (0.3 - 0.8 x10 3/uL) 0.46 Eos # (Auto) (0.0 - 0.2 x10 3/uL) 0.07 Baso # (Auto) (0.0 - 0.1 x10 3/uL) 0.05 Immature Gran % (0.0 - 2.0 %) 0.4 Nucleated RBC % (0 - 1.0 %) 0.0 Urines Urine Color (Yellow) Yellow Urine Appearance (Clear) Clear Urine pH (5.0 - 8.0) 5.0 Ur Specific [place] (<1.030) 1.029 Urine Protein (Negative mg/dL) 30 [...] 1503 Temp 37.4 10 1503 Pulse 109 / 1503 Resp 18 06/28 1503 B/P 129/81 03/10 1504 B/P Mean 97.0 06/28 1504 Last Documented: Result Date Time B/P 129/81 06/28 1504 B/P Mean 97.0 10 1504 Pulse [...] 174 Disposition Decision Admit Admit Physician Name Mykel [...] Landa MD R1 on at 2008 RPT #:[id number] END OF REPORT 2020-06-28 16:47:00-00:00 [facility]) EMERGENCY PROVIDER REPORT REPORT#:[id number] REPORT STATUS: Signed DATE:06/28/20 TIME: 1646 PATIENT: HARJINDER COLUNGA UNIT #: [id number] ROOM/BED: [address]-A AGE: 55 SEX: M PCP PHYS: No Primary or Family Ph ysician SERVICE AUTHOR: Giovany Landa MD R1 * ALL edits or amendments must be made on the el [employer]computer document * Giovany Landa V 06/28/201646: HPI-General [...] are a. General Initial Greet Date/Time 06/28/20 7476 Presentation Chief Complaint Diabetic foot wound Hx [...] MG/DL LAST PM ). Additional Medical History [place] Additional Surgical History None Drug [...] L foot ulcer on ball of foot [id number] wit h scattered ulcer throughout the foot. [...] (Auto) (20.5 - 45.5 %) 17.3 L [place] % (Auto) (5.5 - 11.7 %) 6.0 Eos % (Auto) (0.9 - 2.9 %) 0.9 Baso % (Auto) (0.2 - 1.0 %) 0.7 Neut # (Auto) (2.2 - 4.8 x10 3/uL) 5.68 H Lymph # (Auto) (1.3 - 2.9 x10 3/uL) 1.32 [place] # (Auto) (0.3 - 0.8 x10 3/uL) 0.46 Eos # (Auto) (0.0 - 0.2 x10 3/uL) 0.07 Baso # (Auto) (0.0 - 0.1 x10 3/uL) 0.05 Immature Gran % (0.0 - 2.0 %) 0.4 Nucleated RBC % (0 - 1.0 %) 0.0 Urines Urine Color (Yellow) Yellow Urine Appearance (Clear) Clear Urine pH (5.0 - 8.0) 5.0 Ur Specific [place] (<1.030) 1.029 Urine Protein (Negative mg/dL) 30 [...] Consultation Consultation Referral/Consult Name Obed Lopez DPM Bulb Inspector Called Podiatry Requested Call Time 1657 Requested Call Date 06/28/20 Call Returned Call returned Call Returned Time 1657 Call Returned Date 06/28/20 Bulb Inspector Will see patient Patient Discharge Departure Disposition [...] Resp 18 03/10 1504 Pulse Ox 97 /10 1503 Temp [...] Landa MD R1 on at 2008 RPT #:[id number] END OF REPORT 2020-06-28 16:47:00-00:00 [facility] EMERGENCY PROVIDER REPORT REPORT#:[id number] REPORT STATUS: Signed DATE:06/28/20 TIME: 1646 PATIENT: HARJINDER COLUNGA UNIT #: [id number] ROOM/BED: [address] AGE: 55 SEX: M PCP PHYS: No Primary or Family Ph ysician SERVICE AUTHOR: Giovany Landa MD R1 * ALL edits or amendments must be made on the el [employer]computer document * Giovany Landa V 06/28/20 1647: [...] MG/DL LAST PM ). Additional Medical History [place] Additional Surgical History None Drug [...] L foot ulcer on ball of foot [id number] wit h scattered ulcer throughout the foot. [...] (Auto) (20.5 - 45.5 %) 17.3 L [place] % (Auto) (5.5 - 11.7 %) 6.0 Eos % (Auto) (0.9 - 2.9 %) 0.9 Baso % (Auto) (0.2 - 1.0 %) 0.7 Neut # (Auto) (2.2 - 4.8 x10 3/uL) 5.68 H Lymph # (Auto) (1.3 - 2.9 x10 3/uL) 1.32 [place] # (Auto) (0.3 - 0.8 x10 3/uL) 0.46 Eos # (Auto) (0.0 - 0.2 x10 3/uL) 0.07 Baso # (Auto) (0.0 - 0.1 x10 3/uL) 0.05 Immature Gran % (0.0 - 2.0 %) 0.4 Nucleated RBC % (0 - 1.0 %) 0.0 Urines Urine Color (Yellow) Yellow Urine Appearance (Clear) Clear Urine pH (5.0 - 8.0) 5.0 Ur Specific [place] (<1.030) 1.029 Urine Protein (Negative mg/dL) 30 [...] Consultation Consultation Referral/Consult Name Obed Lopez DPM Bulb Inspector Called Podiatry Requested Call Time 1657 Requested Call Date 06/28/20 Call Returned Call returned Call Returned Time 1657 Call Returned Date 06/28/20 Bulb Inspector Will see patient Patient Discharge Departure Disposition [...] Resp 18 03/10 1504 Pulse Ox 97 /10 1503 Temp [...] communicated with the staff or medical p renettaer taking over this patient's care. Supervising Physician [...] Giovany Landa MD R1 on at 2008 Electronically Signed by Wojciech Dolan DO on 03/11 at 0035 RPT #:[id number] END OF REPORT 2020-06-28 15:11:00-00:00 [facility]GENCY PROVIDER REPORT REPORT#:[id number] REPORT STATUS: Signed DATE:06/28/20 TIME: 1511 PATIENT: HARJINDER COLUNGA UNIT #: [id number] ROOM/BED: [facility]- AGE: 55 SEX: M PCP PHYS: No Primary or Family Ph ysician SERVICE AUTHOR: Mi Ellis PLANNING DIRECTOR * ALL edits or amendments must be made on the [employer]/computer document * Provider in Triage - Adult Provider in Triage Initial Greet Date/Time 06/28/20 7848 Greet Note I have greeted and performed [...] MG/DL LAST PM ). Additional Medical History [place] in [place] Additional Surgical History None Patient [...] NP on at 1512 at 2344 RPT #:[id number] END OF REPORT 2020-06-28 15:11:00-00:00 [facility] ([facility]) EMERGENCY PROVIDER REPORT REPORT#:[id number] REPORT STATUS: Signed DATE:06/28/20 TIME: 151 PATIENT: HARJINDER COLUNGA UNIT #: [id number] ROOM/BED: AGE: 55 SEX: M PCP PHYS: No Primary or Family Ph ysician SERVICE DT: AUTHOR: Mi Ellis PLANNING DIRECTOR * ALL edits or amendments must be made on the [employer]/LikeAndy document * Provider in Triage - Adult Provider in Triage Initial Greet Date/Time 06/28/20 2777 Greet Note I have greeted and performed [...] MG/DL LAST PM ). Additional Medical History [place] Additional Surgical History None Patient History FATHER, . Family History: Heart disease MOTHER Family History: Diabetes Family History: Heart disease Drug Use Denies recreational drugs Smoking status: Smoking status for patients 13 years old or old er: Current every day smoker Other Social History Hx of substance and alcohol abuse Electronically Signed by Mi Ellis NP on at 1512 RPT #:[id number] END OF REPORT 2020-02-27 14:13:00-00:00 [facility] ([facility]) EMERGENCY PROVIDER REPORT REPORT#:[id number] REPORT STATUS: Signed DATE:02/27/20 TIME: 1413 PATIENT: HARJINDER COLUNGA UNIT #: [id number] ROOM/BED: AGE: 54 SEX: M PCP PHYS: No Primary or Family Ph ysician SERVICE AUTHOR: Rod Cerda NP * ALL edits or amendments must be made on the [employer]/computer document * HPI-Rash/Abscess/Cellulitis General Confirmed Patient Yes [...] MG/DL LAST PM ). Additional Medical History [place] 2003 Additional Surgical History None Drug [...] B/P 125/80 02/27 1600 B/P Mean 95 02/26 1600 O2 Delivery Room air 02/27 1600 [...] 10-25 MG Recent Impressions: ULTRASOUND - US [facility] 02/26 1518 Report Impression - Status: SIGNED Entered: 02/27/2020 1550 IMPRESSION: 1. Soft tissue edema without discrete dominant f luid collection or cystic or solid mass lesion. Impression By: [email or web address] - Donaldo Tang M.D. Lab Statement Laboratory studies reviewed and considered in [facility] medical decision-making. Re-Evaluation MDM Re-Evaluation/Progress Re-Evaluation/Progress Text/Dict [...] WITH MEALS Patient Instructions ED Cellulitis Referrals [facility] Departure Forms WORK/SCHOOL EXCUSE VARIABLE Discharge [...] symptoms should prompt an immediate return to [facility] or the closest emergency department or a call to 911. at 0750 RPT #:[id number] END OF REPORT 2020-02-27 14:13:00-00:00 [facility] ([facility]) EMERGENCY PROVIDER REPORT REPORT#:[id number] REPORT STATUS: Signed DATE:02/27/20 TIME: 1412 PATIENT: HARJINDER COLUNGA UNIT #: [id number] ROOM/BED: AGE: 54 SEX: M PCP PHYS: No Primary or Family Ph ysician SERVICE AUTHOR: Rod Cerda NP * ALL edits or amendments must be made on the [employer]/computer document * Rod Cerda 02/27/20 1413: HPI-Rash/Abscess/Cellulitis [...] MG/DL LAST PM ). Additional Medical History [place] Additional Surgical History None Drug [...] 10-25 MG Recent Impressions: ULTRASOUND - US [facility] 02/26 1518 Report Impression - Status: SIGNED Entered: 02/27/2020 5200 IMPRESSION: 1. Soft tissue edema without discrete dominant f luid collection or cystic or solid mass lesion. Impression By: [email or web address] - Donaldo Tang M.D. Lab Statement Laboratory studies reviewed and considered in [facility] medical decision-making. Re-Evaluation MDM Re-Evaluation/Progress Re-Evaluation/Progress Text/Dict [...] WITH MEALS Patient Instructions ED Cellulitis Referrals [facility] Departure Forms WORK/SCHOOL EXCUSE VARIABLE Discharge Note [...] symptoms should prompt an immediate return to [facility] or the closest emergency department [...] were reviewe d. I agree with this PA/patient care associate findings, exam and plan. at 0750 at 0310 RPT #:[id number] END OF REPORT 2019-10-08 12:43:00-00:00 [facility] ([facility]) EMERGENCY PROVIDER REPORT REPORT#:[id number] REPORT STATUS: Signed DATE:10/08/19 TIME: 1243 PATIENT: HARJINDER COLUNGA UNIT #: [id number] ROOM/BED: AGE: 54 SEX: M PCP PHYS: No Primary or Family Ph ysician SERVICE AUTHOR: Brennan Dupont MD * ALL edits or amendments must be made on the [employer]/computer document * HPI-General Illness Free Text HPI [...] MG/DL LAST PM ). Additional Medical History [place] in [place] Additional Surgical History None Drug [...] clubbing, edema, Musculoskeletal: normal inspection, normal tone Neuro/ELECTRICAL ENGINEERING TECHNICIAN: alert oriented x 3, nonfocal Skin: warm, [...] (Auto) (25.0 - 55.0 %) 16.6 L [place] % (Auto) (0.0 - 10.0 %) 6.5 Eos % (Auto) (0.0 - 5.0 %) 4.0 Baso % (Auto) (0.0 - 1.0 %) 0.2 Neut # (Auto) (1.8 - 7.7 K/mm3) 4.11 Lymph # (Auto) (1.0 - 5.0 K/mm3) 0.95 L [place] # (Auto) (0 - 0.8 K/mm3) 0.37 Eos # (Auto) (0.0 - 0.5 K/mm3) 0.23 Baso # (Auto) (0.0 - 0.2 K/mm3) 0.01 Add Manual Diff NO Urines Urine Color (YELLOW) YELLOW Urine Appearance (CLEAR) SLIGHTLY HAZY H Urine pH (5.0 - 8.0) 6.0 Ur Specific [place] (1.001 - 1.035) 1.020 Urine Protein (Neg - 15 mg/dL) 1+ Urine Glucose (UA) (NEGATIVE mg/dL) 300-500 (3 +) Urine Ketones (NEGATIVE mg/dL) NEGATIVE Urine Blood (NEGATIVE) TRACE Urine Nitrite (NEGATIVE) NEGATIVE Urine Bilirubin (NEGATIVE) NEGATIVE Urine Urobilinogen (0.0 - 0.2 mg/dL) 0.2 Ur Leukocyte Esterase (NEGATIVE uL) NEGATIVE Urine RBC (0 - 5 per HPF) NONE SEEN Urine WBC (0 - 5 per HPF) 0-5 Ur Epithelial Cells (Few per HPF) Rare (0-1/hp f) Urine Bacteria (NONE per HPF) TRACE Recent Impressions: CAT SCAN - CT ABD PELVIS W/O CONT 10/07 1452 Report Impression - Status: SIGNED Entered: 10/08/2019 1522 IMPRESSION: 1. No evidence of renal or ureteral stones or of obstructive uropathy. 2. No evidence of acute abdominal or pelvic abno rmalities. Location code: [facility] Impression By: Brenda - Feliciano Mcdaniel M.D. Re-Evaluation MDM Free Text MDM [...] Human Lispro 5 UNITS X1ED STA 10/07 14 29 DC 10/07 SUBQ 10/07 1430 1457 Patient [...] Referrals Tu Herndon MD at 1723 RPT #:[id number] END OF REPORT
[2022-10-14 01:21] LABS: Absolute Lymphocytes (CBC) 1.3 K/uL (0.7-4.9); Hematocrit 35.1 % (39.6-49.0); Lymphocytes % 23.6 % (15.3-44.8); MCV 85.9 fL (80-100); MPV 8.1 fL (7.6-11.3); Potassium 5.2 mEq/L (3.5-5.1); RBC Red Blood Cell Count 4.09 M/uL (4.33-5.43)
--- NOTE | 2022-10-14 01:33 | ER ---
Nurse's Notes [facility] Name: Shivam Block Age: 57 yrs Sex: Male : 1965 Arrival Date: 10/14/2022 Time: 00:38 Bed 17 Private MD: Diagnosis: Dehydration;Acute Kidney Injury;Anemia, unspecified;Muscle weakness (generalized) Presentation: 10/14 00:53 Chief complaint: Patient states: weakness this pm. Coronavirus screen: Vaccine status: Patient reports being unvaccinated. Ebola Screen: Patient negative for fever greater than or equal to 101.5 degrees Fahrenheit, and additional compatible Ebola Virus Disease symptoms. Initial Sepsis Screen: Does the patient meet any 2 criteria? No. Patient's initial sepsis screen is negative. Does the patient have a suspected source of infection? No. Patient's initial sepsis screen is negative. Risk Assessment: Do you want to hurt yourself or someone else? Patient reports no desire to harm self or others. 00:53 Method Of Arrival: EMS: [facility] 00:53 Acuity: TERRANCE 3 03:16 Onset of symptoms was October 13, 2022. lg3 Triage Assessment: 00:56 General: Appears in no apparent distress. comfortable, Behavior is calm, cooperative. Pain: Denies pain. Derm: Wound noted left stump clear drainage wound bed pink healthy. Historical: - Allergies: 00:54 Fish Containing Products; kl 00:54 SEAFOOD; kl - Home Meds: 00:54 sertraline oral [Active]; Metoprolol Tartrate Oral [Active]; lisinopril Oral [Active]; gabapentin 750 mg oral Tablet, Extended Release 24 hr [Active]; Depakote Oral [Active]; eloquis [Active]; cephalexin Oral [Active]; atorvastatin oral [Active]; Amiodarone Oral [Active]; - PMHx: 00:54 Atrial fibrillation; diabetes mellitus; Hypertensive disorder; kl - PSHx: 00:54 bilateral BKA; kl - Immunization history:: Adult Immunizations not up to date. - Social history:: Smoking status: Patient reports the use of cigarette tobacco products, smokes one pack cigarettes per day. Screenin:[address] [facility] ED Fall Risk Assessment (Adult) History of falling in the last 3 months, lg3 including since admission No falls in past 3 months (0 pts). Abuse screen: Denies threats or abuse. Denies injuries from another. Nutritional screening: No deficits noted. Tuberculosis screening: No symptoms or risk factors identified. Assessment: 01:06 General: Appears in no apparent distress. comfortable, Behavior is calm, cooperative. lg3 Pain: Denies pain. Neuro: No deficits noted. Garcia Agitation-Sedation Scale (RASS): 0 - Alert and Calm Level of Consciousness is awake, alert, obeys commands, Oriented to person, place, time, situation. Cardiovascular: No deficits noted. Denies chest pain, shortness of breath, Capillary refill < 3 seconds Clubbing of nail beds is absent JVD is absent Patient's skin is warm and dry. Respiratory: No deficits noted. Airway is patent Respiratory effort is even, unlabored, Respiratory pattern is regular, symmetrical. GI: No deficits noted. No signs and/or symptoms were reported involving the gastrointestinal system. Abdomen is round non-distended, obese. : No deficits noted. No signs and/or symptoms were reported regarding the genitourinary system. EENT: No deficits noted. No signs and/or symptoms were reported regarding the EENT system. Derm: No deficits noted. No signs and/or symptoms reported regarding the dermatologic system. Skin is intact, is healthy with good turgor, Skin is dry, Skin is normal, Skin temperature is warm. Derm: Wound noted right leg and left leg. 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 Reports generalized weakness. Vital Signs: 00:53 BP 85 / 49; Pulse 56; Resp 16; Temp 98.9(O); Pulse Ox 95% on R/A; Pain 0/10; kl 01:25 BP 103 / 55; Pulse 58; Resp 17 S; Pulse Ox 95% on R/A; lg3 03:11 BP 130 / 67; Pulse 57; Resp 16; Pulse Ox 95% on R/A; lg3 00:53 Pain Scale: Adult kl ED Course: 00:43 Patient arrived in ED. ms3 00:44 Yordy Corbett DO is Attending Physician. ms3 00:54 Triage completed. kl 00:55 Inserted saline lock: 22 gauge in right antecubital area, using aseptic technique. lg3 Blood collected. 00:55 BMP Sent. lg3 00:55 CBC with Diff Sent. lg3 00:57 Wound care: located on left stump was dressed with 4X4s, Kerlix, Kumar wrap, Patient kl tolerated well. 01:06 Patient has correct armband on for positive identification. Placed in gown. Bed in low lg3 position. Call light in reach. Side rails up X 1. Client placed on continuous cardiac and pulse oximetry monitoring. NIBP monitoring applied. Door closed. Noise minimized. Warm blanket given. 01:21 Lucia Krueger, RN is Primary Nurse. lg3 01:32 Jon Villareal MD is Hospitalizing Provider. ms3 03:05 No provider procedures requiring assistance completed. Patient admitted, IV remains in lg3 place. 03:16 Arm band placed on right wrist. lg3 06:01 Urine W/Microscopic (UAM) Sent. rv1 Administered Medications: 01:49 Drug: NS 0.9% IV 1000 ml Route: IV; Rate: 125 ml/hr; Site: right antecubital; lg3 03:04 Follow up: IV Status: Infusion continued upon admission lg3 01:49 Drug: NS 0.9% IV 1000 ml Route: IV; Rate: 1000 ml; Site: right antecubital; lg3 03:04 Follow up: Response: No adverse reaction; IV Status: Completed infusion; IV Intake: lg3 1000ml Medication: 03:11 VIS not applicable for this client. lg3 Intake: 03:04 IV: 1000ml; Total: 1000ml. lg3 Outcome: 01:32 Decision to Hospitalize by Provider. ms3 03:05 Admitted to ER Hold. Please see [facility] for further documentation. lg3 03:05 Condition: stable 03:05 Instructed on the need for admit, Demonstrated understanding of instructions. 12:53 Patient left the ED. ko1 Signatures: Veda Mariscal RN Lucia Simons RN [place] lg3 Yordy Corbett DO DO ms3 Sonya Ibanez RN RN ko1 Annelise Garcia rv1
--- NOTE | 2022-10-14 01:33 | EDPHYS ---
Physician Documentation [facility] Name: Shivam Block Age: 57 yrs Sex: Male : 1965 Arrival Date: 10/14/2022 Time: 00:38 Bed 17 Private MD: ED Physician Yordy Corbett HPI: 10/14 00:44 This 57 yrs old Male presents to ER via Unassigned with complaints of generalized ms3 weakness. 00:44 57-year-old male with past medical history of atrial fibrillation, diabetes, status ms3 post bilateral BKA presents via [facility] for generalized weakness. Patient states he felt weak on waking up this morning. Patient states in the past when feeling this way his leg was infected. Patient also states he noted his glucose to be up-and-down yesterday. Patient denies pain at this time. Patient denies fevers, chills, nausea, vomiting, chest pain, shortness of breath. Historical: - Allergies: 00:54 Fish Containing Products; kl 00:54 SEAFOOD; kl - Home Meds: 00:54 sertraline oral [Active]; Metoprolol Tartrate Oral [Active]; lisinopril Oral [Active]; kl gabapentin 750 mg oral Tablet, Extended Release 24 hr [Active]; Depakote Oral [Active]; eloquis [Active]; cephalexin Oral [Active]; atorvastatin oral [Active]; Amiodarone Oral [Active]; - PMHx: 00:54 Atrial fibrillation; diabetes mellitus; Hypertensive disorder; kl - PSHx: 00:54 bilateral BKA; kl - Immunization history:: Adult Immunizations not up to date. - Social history:: Smoking status: Patient reports the use of cigarette tobacco products, smokes one pack cigarettes per day. ROS: 00:44 Eyes: Negative for injury, pain, redness, and discharge, Neck: Negative for injury, ms3 pain, and swelling, Cardiovascular: Negative for chest pain, and palpitations. Respiratory: Negative for shortness of breath, cough, wheezing, and pleuritic chest pain, Abdomen/GI: Negative for abdominal pain, nausea, vomiting, diarrhea, and constipation, Skin: Negative for injury, rash, and discoloration. 00:44 Constitutional: Positive for Generalized weakness. 00:44 All other systems are negative. Exam: 00:44 Constitutional: This is a well developed, well nourished patient who is awake, alert, ms3 and in no acute distress. Head/Face: Normocephalic, atraumatic. Neck: Trachea midline, no cervical lymphadenopathy. Supple, full range of motion without nuchal rigidity, or vertebral point tenderness. No Meningismus. Chest/axilla: Normal chest wall appearance and motion. Nontender with no deformity. Cardiovascular: Regular rate and rhythm with a normal S1 and S2. No gallops, murmurs, or rubs. Normal PMI, no JVD. No pulse deficits. Respiratory: Lungs have equal breath sounds bilaterally, clear to auscultation and percussion. No rales, rhonchi or wheezes noted. No increased work of breathing, no retractions or nasal flaring. Abdomen/GI: Soft, non-tender, with normal bowel sounds. No distension or tympany. No guarding or rebound. No evidence of tenderness throughout. 00:44 Skin: Healing ulceration on the left stump. No surrounding erythema, no drainage.. Vital Signs: 00:53 BP 85 / 49; Pulse 56; Resp 16; Temp 98.9(O); Pulse Ox 95% on R/A; Pain 0/10; kl 01:25 BP 103 / 55; Pulse 58; Resp 17 S; Pulse Ox 95% on R/A; lg3 03:11 BP 130 / 67; Pulse 57; Resp 16; Pulse Ox 95% on R/A; lg3 00:53 Pain Scale: Adult kl MDM: 00:44 Patient medically screened. ms3 00:44 Differential Diagnosis Anemia versus hyperglycemia versus hypoglycemia. ms3 04:39 Data reviewed: vital signs, nurses notes, and as a result, I will admit patient. ms3 Consideration of Admission/Observation Patient was admitted/placed on observation. Management of patient was discussed with the following: Hospitalist: Brian Herrera NP. I considered the following discharge prescriptions or medication management in the emergency department Medications were administered in the Emergency Department. See MAR. Historians other than the Patient: EMS: . Care significantly affected by the following chronic conditions: Diabetes, Hypertension. Counseling: I had a detailed discussion with the patient and/or guardian regarding: the historical points, exam findings, and any diagnostic results supporting the discharge/admit diagnosis, lab results, the need for further work-up and treatment in the hospital. Response to treatment: the patient's symptoms have mildly improved after treatment, and as a result, I will admit patient. 10/14 00:44 Order name: CBC with Diff; Complete Time: 01:29 ms3 10/14 00:44 Order name: BMP; Complete Time: 01:29 ms3 10/14 01:40 Order name: Urine W/Microscopic (UAM); Complete Time: 06:31 la1 10/14 07:50 Order name: Glucose, Ancillary Testing EDMS 10/14 09:55 Order name: Creatine Phosphokinase EDMS 10/14 09:55 Order name: Magnesium EDMS 10/14 11:55 Order name: Glucose, Ancillary Testing EDMS 10/14 12:52 Order name: Basic Metabolic Panel EDMS 10/14 00:44 Order name: Wound Care; Complete Time: 00:55 ms3 Administered Medications: 01:49 Drug: NS 0.9% IV 1000 ml Route: IV; Rate: 125 ml/hr; Site: right antecubital; lg3 03:04 Follow up: IV Status: Infusion continued upon admission lg3 01:49 Drug: NS 0.9% IV 1000 ml Route: IV; Rate: 1000 ml; Site: right antecubital; lg3 03:04 Follow up: Response: No adverse reaction; IV Status: Completed infusion; IV Intake: lg3 1000ml Disposition Summary: 10/14/22 01:32 Hospitalization Ordered Hospitalization Status: Observation ms3 Provider: Jon Villareal ms3 Condition: Stable ms3 Problem: new ms3 Symptoms: are unchanged ms3 Bed/Room Type: Standard ms3 Location: Telemetry/MedSurg (observation)(10/14/22 11:59) bd Room Assignment: 212(10/14/22 11:59) bd Diagnosis - Dehydration ms3 - Acute Kidney Injury ms3 - Anemia, unspecified ms3 - Muscle weakness (generalized) ms3 Forms: - Medication Reconciliation Form ms3 - SBAR form ms3 Signatures: Dispatcher [employer] Judie Arriaza Kimberly, RN RN kl Garcia, Cindy, RN RN cg Gibson, Lacie, RN RN lg3 Yordy Corbett DO DO ms3 Corrections: (The following items were deleted from the chart) 01:56 01:32 Telemetry/MedSurg (observation) ms3 cg 01:56 01:32 ms3 cg 11:59 01:56 BR ER HOLD cg bd 11:59 01:56 ERHOLD- cg bd
[2022-10-14] MEDS ORDERED: NA CHLORIDE 0.9% 2,000 ML ONE (01:48)
--- NOTE | 2022-10-14 01:54 | P.HP ---
Certification for Inpatient Patient admitted to: Observation With expected LOS: <2 Midnights Patient will require the following post-hospital care: None Practitioner: I am a practitioner with admitting privileges, knowledge of patient current condition, hospital course, and medical plan of care. Services: Services provided to patient in accordance with Admission requirements found in Title 42 Section 412.3 of the Code of Federal Regulations <Brian Herrera - Last Filed: 10/14/22 01:52> Patient History Date of Service: 10/14/22 Reason for admission: JENNYFER History of Present Illness: 57-year-old male with history of atrial fibrillation on chronic anticoagulation, bilateral lower extremity amputations, [id number] diabetes, hypertension, seizure disorder presents to the emergency department with chief complaint of weakness. His blood pressure was noted to be low upon arrival to the emergency department initially 85/49, responded to IV fluids. Upon chart review patient was taken off of his lisinopril during his recent hospitalization for JENNYFER, he has not been taking the lisinopril, no other changes in home medications. He reports good oral intake recently at home, no NSAIDs, no recent antibiotics. He had a recent renal ultrasound which was unremarkable. Patient was evaluated in the emergency department labs are significant for creatinine 1.64 GFR 49 BUN 29 potassium 5.2 sodium 138 hemoglobin 9.2 medic at 35.1. At discharge on 09/28/2022 creatinine was 0.96. We will admit under observation for JENNYFER, mild hyperkalemia. - Past Medical/Surgical History Diabetic: Yes -: atrial fib -: HTN -: DM -: Previous NH -: bilateral BKA Psychosocial/ Personal History: Patient lives at home with his aunt - Family History Mother -: Heart disease, Diabetes, Cancer Father -: Heart disease - Social History Smoking Status: Never smoker Alcohol use: No CD- Drugs: No Caffeine use: Yes Place of Residence: Home <Brian Herrera - Last Filed: 10/14/22 01:52> Date of Service: 10/14/22 <Jon Villareal - Last Filed: 10/14/22 22:55> Allergies shellfish derived Allergy (Verified 09/27/22 19:33) Itching/Hives/Rash Home Medications: Amiodarone HCl [Cordarone*] 200 mg PO DAILY 08/15/22 Apixaban [Eliquis] 5 mg PO BID 08/15/22 Atorvastatin Calcium 40 mg PO BEDTIME 08/15/22 Gabapentin 400 mg PO TID 08/15/22 Metoprolol Tartrate 25 mg PO BID 08/15/22 Sertraline [Zoloft*] 100 mg PO DAILY 08/15/22 Hydrocodone 10/APAP 325 [[place] 10/325*] 1 tab PO Q6H PRN #15 tab 09/21/22 Metformin HCl [Glucophage*] 500 mg PO BIDWM #60 tab 09/21/22 Amlodipine [Norvasc*] 5 mg PO DAILY #30 tab 09/28/22 Levetiracetam [Keppra] 750 mg PO BID #60 tab 09/28/22 Review of Systems 10-point ROS is otherwise unremarkable General: Malaise <Brian Herrera - Last Filed: 10/14/22 01:52> Physical Examination - Physical Exam General: Alert, In no apparent distress, Oriented x3 HEENT: Atraumatic, PERRLA, Mucous membr. moist/pink, EOMI, Sclerae nonicteric Neck: Supple, 2+ carotid pulse no bruit, No LAD, Without JVD or thyroid abnormality Respiratory: Clear to auscultation bilaterally, Normal air movement Cardiovascular: Regular rate/rhythm, Normal S1 S2 Gastrointestinal: Normal bowel sounds, No tenderness Musculoskeletal: Other (Bilateral BKA) Integumentary: No rashes Neurological: Normal speech, Normal strength at 5/5 x4 extr, Normal tone, Normal affect Lymphatics: No axilla or inguinal lymphadenopathy - Studies Laboratory Data (last 24 hrs) 10/14/22 00:53: Sodium 138, Potassium 5.2 H, BUN 29 H, Creatinine 1.64 H, Glucose 118 H 10/14/22 00:53: WBC 5.40, Hgb 11.2 L, Hct 35.1 L, Plt Count 333 <Brian Herrera - Last Filed: 10/14/22 01:52> - Studies Laboratory Data (last 24 hrs) 10/14/22 00:53: Sodium Cancelled, Potassium Cancelled, BUN Cancelled, Creatinine Cancelled, Glucose Cancelled, Magnesium 2.1 10/14/22 00:53: Sodium 138, Potassium 5.2 H, BUN 29 H, Creatinine 1.64 H, Glucose 118 H 10/14/22 00:53: WBC 5.40, Hgb 11.2 L, Hct 35.1 L, Plt Count 333 <Jon Villareal - Last Filed: 10/14/22 22:55> Assessment and Plan - Plan Assessment: JENNYFER, mild hyperkalemia Atrial fibrillation on chronic anticoagulation Diabetes mellitus type [id number] Hypertension Hyperlipidemia Seizure disorder Plan: JENNYFER, mild hyperkalemia Unclear etiology, blood pressure low upon arrival to the emergency department, patient was taken off his lisinopril recently, he did verify that he has not been taking that medication. He denies any recent NSAID use or antibiotics, last time responded quickly with IV fluids. Given IV fluid bolus in ED, will continue maintenance fluids overnight. Obtain urinalysis. Nephrology consult. Atrial fibrillation on chronic anticoagulation Continue Eliquis, amiodarone. Hold metoprolol given borderline blood pressures for now. Diabetes mellitus type [id number]-ropuvodnq ACHS Accu-Chek, sliding scale insulin. Hypertension Hyperlipidemia Seizure disorder Home medications continued. DVT PPX: Continue Eliquis Code status: Full code Discharge Plan: Home Plan to discharge in: 24 Hours - Advance Directives Does patient have a Living Will: No Does patient have a Durable POA for Healthcare: No - Code Status/Comfort Care Code Status Assessed: Yes (Full code) Critical Care: No Time Spent Managing Pts Care (In Minutes): 55 <Brian Herrera - Last Filed: 10/14/22 01:52> - Plan Patient seen and examined on rounds this morning. feeling better. denies NSAID usage; maybe slight decreased po intake no fever/chills, no nausea/vomiting/diarrhea no new meds. has not restarted lisinopril continue IVF repeat BMP later this morning (initial repeat order was accidentally canceled) nephro consulted <Jon Villareal - Last Filed: 10/14/22 22:55>
[2022-10-14] MEDS ORDERED: ONDANSETRON 4 MG/2 ML VIAL IV PRN (02:32)
[2022-10-14] MEDS ORDERED: ACETAMINOPHEN 500 MG TAB PO PRN (02:32)
[2022-10-14] MEDS: NA CHLORIDE 0.9% 1,000 ML IV SCH ×3 (02:32→18:20)
[2022-10-14] MEDS ORDERED: HYDROCODONE/APAP 10/325 TAB PO PRN (02:32)
[2022-10-14 03:01] VITALS: BMI 29.2
[2022-10-14 06:10] LABS: Specific Gravity 1.015 (1.005-1.030); Urine Bacteria None Seen /HPF (<20); Urine Bilirubin NEGATIVE (Negative); Urine Blood Negative (Negative); Urine Clarity Clear (Clear); Urine Color Light-Yellow (Yellow); Urine Glucose NEGATIVE (Negative); Urine Mucus Slight /HPF (None Seen); Urine Protein TRACE (Negative); Urine RBC None Seen /HPF (None Seen); Urine Urobilinogen Normal (Normal)
[2022-10-14] MEDS: INSULIN -REGULAR HUMAN 50 UNIT/0.5 ML ML SQ SCH ×4 (07:30→21:00)
[2022-10-14] MEDS: SERTRALINE HCL 100 MG TAB PO SCH (09:00)
[2022-10-14] MEDS: AMLODIPINE 5 MG TAB PO SCH (09:00)
[2022-10-14] MEDS: GABAPENTIN 400 MG CAP PO SCH ×3 (09:00→21:41)
[2022-10-14] MEDS: AMIODARONE HCL 200 MG TAB PO SCH (09:00)
[2022-10-14] MEDS: levETIRAcetam 500 MG TAB PO SCH ×2 (09:00→21:40)
[2022-10-14] MEDS: APIXABAN 5 MG TABLET PO SCH ×2 (09:00→21:00)
[2022-10-14] MEDS: METOPROLOL TAR 25 MG TAB PO SCH ×2 (09:00→21:00)
[2022-10-14] MEDS ORDERED: AMLODIPINE 5 MG TAB ONE (09:12)
[2022-10-14] MEDS ORDERED: GABAPENTIN 300 MG CAP ONE (09:12)
[2022-10-14] MEDS ORDERED: APIXABAN 5 MG TABLET ONE (09:12)
[2022-10-14] MEDS ORDERED: levETIRAcetam 500 MG TAB ONE (09:12)
[2022-10-14] MEDS ORDERED: METOPROLOL TAR 25 MG TAB ONE (09:13)
[2022-10-14] MEDS ORDERED: AMIODARONE HCL 200 MG TAB ONE (09:13)
[2022-10-14] MEDS ORDERED: GABAPENTIN 400 MG CAP ONE (09:15)
[2022-10-14 09:55] LABS: Magnesium 2.1 mg/dL (1.6-2.4)
[2022-10-14] MEDS ORDERED: NA CHLORIDE 0.9% 1,000 ML ONE (10:26)
[2022-10-14] MEDS ORDERED: NICOTINE 21 MG/PAT TD ONE (12:30)
[2022-10-14] MEDS: NICOTINE 21 MG/PAT TD SCH (12:47)
[2022-10-14 12:52] LABS: Potassium 4.6 mEq/L (3.5-5.1)
--- NOTE | 2022-10-14 19:10 | P.CNS ---
Date of Consult: 10/14/22 Reason for Consult: JENNYFER/ CKD Requesting Physician: Jon Villareal Primary Care Provider: [facility] Chief Complaint: JENNYFER History of Present Illness: 57-year-old male with history of atrial fibrillation on chronic anticoagulation, bilateral lower extremity amputations, gkj-bzthvxn-hijmfprew diabetes, hypertension, seizure disorder presents to the emergency department with chief complaint of weakness. His blood pressure was noted to be low upon arrival to the emergency department initially 85/49, responded to IV fluids. Upon chart review patient was taken off of his lisinopril during his recent hospitalization for JENNYFER, he has not been taking the lisinopril, no other changes in home medications. He reports good oral intake recently at home, no NSAIDs, no recent antibiotics. He had a recent renal ultrasound which was unremarkable. He denies NSAIDs. He reports rare difficulty with bladder emptying. 00:44 This 57 yrs old Male presents to ER via Un[facility] with complaints of generalized ms3 weakness. 00:44 57-year-old male with past medical history of atrial fibrillation, diabetes, status ms3 post bilateral BKA presents via [facility] for generalized weakness. Patient states he felt weak on waking up this morning. Patient states in the past when feeling this way his leg was infected. Patient also states he noted his glucose to be up-and-down yesterday. Patient denies pain at this time. Patient denies fevers, chills, nausea, vomiting, chest pain, shortness of breath. Allergies shellfish derived Allergy (Verified 09/27/22 19:33) Itching/Hives/Rash Home medications list reviewed: Yes Home Medications: Amiodarone HCl [Cordarone*] 200 mg PO DAILY 08/15/22 Apixaban [Eliquis] 5 mg PO BID 08/15/22 Atorvastatin Calcium 40 mg PO BEDTIME 08/15/22 Gabapentin 400 mg PO TID 08/15/22 Metoprolol Tartrate 25 mg PO BID 08/15/22 Sertraline [Zoloft*] 100 mg PO DAILY 08/15/22 Hydrocodone 10/APAP 325 [[place] 10/325*] 1 tab PO Q6H PRN #15 tab 09/21/22 Metformin HCl [Glucophage*] 500 mg PO BIDWM #60 tab 09/21/22 Amlodipine [Norvasc*] 5 mg PO DAILY #30 tab 09/28/22 Levetiracetam [Keppra] 750 mg PO BID #60 tab 09/28/22 - Past Medical/Surgical History Diabetic: Yes -: Afib -: HTN -: DM -: CAD/ Hx HI -: CKD II (Dr. Mendez/ Rodrigo) -: bilateral BKA Psychosocial/ Personal History: Patient lives at home with his aunt - Family History Mother Medical History: Heart disease, Diabetes, Cancer Father Medical History: Heart disease - Social History Smoking Status: Current every day smoker Alcohol use: No CD- Drugs: No Caffeine use: Yes Place of Residence: Home Review of Systems 10-point ROS is otherwise unremarkable General: Weakness Physical Examination Temp Pulse Resp BP Pulse Ox 97.6 F 57 16 127/57 L 96 10/14/22 16:00 10/14/22 16:00 10/14/22 16:00 10/14/22 16:00 10/14/22 16:00 General: In no apparent distress, Oriented x3, Cooperative HEENT: Atraumatic Neck: Supple Respiratory: Clear to auscultation bilaterally Cardiovascular: No edema Gastrointestinal: Non-distended Musculoskeletal: No clubbing, No contractures Integumentary: No rashes, No cyanosis Neurological: Normal speech Laboratory Data (last 24 hrs) 10/14/22 00:53: Sodium Cancelled, Potassium Cancelled, BUN Cancelled, Creatinine Cancelled, Glucose Cancelled, Magnesium 2.1 10/14/22 00:53: Sodium 138, Potassium 5.2 H, BUN 29 H, Creatinine 1.64 H, Glucose 118 H 10/14/22 00:53: WBC 5.40, Hgb 11.2 L, Hct 35.1 L, Plt Count 333 Imagings Data: [id number] EXAM DESCRIPTION: US - Renal Ultrasound-Complete - 09/27/2022 4:02 am CLINICAL HISTORY: jennyfer Flank pain COMPARISON: No comparisons FINDINGS: Both kidneys are normal in size, shape and echotexture. The right kidney measures 10.5 x 4.8 x 4.4 cm. No hydronephrosis, focal mass or perinephric fluid. The left kidney measures 9.5 x 3.8 x 3.7 cm. No hydronephrosis, focal mass or perinephric fluid. 7 mm benign cyst. The urinary bladder is incompletely distended without gross abnormality seen. IMPRESSION: Unremarkable renal sonogram. Conclusions/Impression: Stage I JENNYFER in the setting of hypovolemia/ hypotension CKD II with Proteinuria -No NSAIDs -Continue IVF Hyperkalemia, resolved -Low potassium diet HTN with CKD complicated by hypotension -Continue IVF -Restart Amlodipine as indicated DM II with CKD & Polyneuropathy -Continue Gabapentin -RISS Anemia in chronic illness -Monitor H&H Cigarette smoker -Recommend cessation -Nicotine TD Thank you kindly for the consultation
[2022-10-14] MEDS ORDERED: ATORVASTATIN 40 MG TAB PO SCH (21:00)
[2022-10-14] MEDS: Ringers Lactate 1,000 ML IV SCH (21:58)
[2022-10-15 03:45] LABS: Absolute Lymphocytes (CBC) 1.2 K/uL (0.7-4.9); Hematocrit 29.6 % (39.6-49.0); Lymphocytes % 28.5 % (15.3-44.8); MCV 85.4 fL (80-100); MPV 8.4 fL (7.6-11.3); RBC Red Blood Cell Count 3.47 M/uL (4.33-5.43)
[2022-10-15 03:54] LABS: Bilirubin Total 0.1 mg/dL (0.2-1.0); Potassium 4.6 mEq/L (3.5-5.1); Protein, Total 6.7 g/dL (6.4-8.2); Uric Acid 4.8 mg/dL (3.5-7.2)
[2022-10-15 05:08] LABS: UR PROTEIN 7.8 mg/dL (<11.9)
[2022-10-15 05:11] LABS: Specific Gravity 1.006 (1.005-1.030); UR CREAT < 18.0 mg/dL (20-370); Urine Bacteria None Seen /HPF (<20); Urine Bilirubin NEGATIVE (Negative); Urine Blood Negative (Negative); Urine Clarity Clear (Clear); Urine Color Colorless (Yellow); Urine Glucose NEGATIVE (Negative); Urine Protein NEGATIVE (Negative); Urine RBC None Seen /HPF (None Seen); Urine Urobilinogen Normal (Normal); Urine pH 5.5 (5.0-7.0)
[2022-10-15 05:21] LABS: UR MICROALBUMIN 4.2 mg/dL (< 1.9)
[2022-10-15 05:26] LABS: UR CREAT < 18.0 mg/dL (20-370)
[2022-10-15] MEDS: INSULIN -REGULAR HUMAN 50 UNIT/0.5 ML ML SQ SCH (07:30)
[2022-10-15] MEDS: NICOTINE 21 MG/PAT TD SCH (08:07)
[2022-10-15] MEDS: levETIRAcetam 500 MG TAB PO SCH (08:07)
[2022-10-15] MEDS: APIXABAN 5 MG TABLET PO SCH (08:08)
[2022-10-15] MEDS: SERTRALINE HCL 100 MG TAB PO SCH (08:09)
[2022-10-15] MEDS: AMLODIPINE 5 MG TAB PO SCH (08:09)
[2022-10-15] MEDS: GABAPENTIN 400 MG CAP PO SCH (08:09)
[2022-10-15] MEDS: AMIODARONE HCL 200 MG TAB PO SCH (08:09)
[2022-10-15 08:10] VITALS: BP 137/67
--- NOTE | 2022-10-15 08:19 | P.DS ---
Admission Date: 10/14/22 Discharge Date: 10/15/22 Primary Care Provider: ABHISHEK Disposition: ROUTINE DISCHARGE Discharge Condition: FAIR Reason for Admission: JENNYFER - Problems (1) Acute kidney injury Status: Acute (2) Hyperkalemia Status: Acute Brief History of Present Illness: 57-year-old male with history of atrial fibrillation on chronic anticoagulation, bilateral lower extremity amputations, kmm-kguovge-ewpgwpryl diabetes, hypertension, seizure disorder presents to the emergency department with chief complaint of weakness. His blood pressure was noted to be low upon arrival to the emergency department initially 85/49, responded to IV fluids. Upon chart review patient was taken off of his lisinopril during his recent hospitalization for JENNYFER, he has not been taking the lisinopril, no other changes in home medications. He reports good oral intake recently at home, no NSAIDs, no recent antibiotics. He had a recent renal ultrasound which was unremarkable. Patient was evaluated in the emergency department labs are significant for creatinine 1.64 GFR 49 BUN 29 potassium 5.2 sodium 138 hemoglobin 9.2 medic at 35.1. Patient was hospitalized for further management. Hospital Course: Diagnosis JENNYFER Hyperkalemia Atrial fibrillation on chronic anticoagulation Diabetes mellitus type 4ptb-hfpndly-eimarnqib Hypertension Hyperlipidemia Seizure disorder Patient placed under observation on the medical floor and hydrated with IV fluid. Hyperkalemia resolved with IV fluids. JENNYFER also resolved. Current creatinine level is now within normal range. Patient is asymptomatic. He was seen and evaluated by nephrology Dr. Mendez. JENNYFER and hyperkalemia have resolved. Patient is deemed stable for discharge. Vital Signs/Physical Exam: Temp Pulse Resp BP Pulse Ox 96.8 F 50 16 137/67 98 10/15/22 04:00 10/15/22 08:09 10/15/22 04:00 10/15/22 08:09 10/15/22 04:00 General: Alert, In no apparent distress, Oriented x3 HEENT: Mucous membr. moist/pink Neck: Supple, JVD not distended Respiratory: Clear to auscultation bilaterally, Normal air movement Cardiovascular: No edema, Regular rate/rhythm, Normal S1 S2 Gastrointestinal: Soft and benign, Non-distended Musculoskeletal: No tenderness Integumentary: No rashes, No cyanosis Neurological: Normal speech, Normal strength at 5/5 x4 extr Laboratory Data at Discharge: WBC 4.30 thou/uL (4.3-10.9) 10/15/22 02:21 Hgb 9.7 g/dL (13.6-17.9) L D 10/15/22 02:21 Hct 29.6 % (39.6-49.0) L 10/15/22 02:21 Plt Count 252 thou/uL (152-406) 10/15/22 02:21 Sodium 140 mEq/L (136-145) 10/15/22 02:21 Potassium 4.6 mEq/L (3.5-5.1) 10/15/22 02:21 BUN 18 mg/dL (7-18) 10/15/22 02:21 Creatinine 0.89 mg/dL (0.70-1.30) 10/15/22 02:21 Glucose 121 mg/dL (74-106) H 10/15/22 02:21 Uric Acid 4.8 mg/dL (3.5-7.2) 10/15/22 02:21 Phosphorus 3.0 mg/dL (2.5-4.9) 10/15/22 02:21 Magnesium 2.1 mg/dL (1.6-2.4) 10/14/22 00:53 Total Bilirubin 0.1 mg/dL (0.2-1.0) L 10/15/22 02:21 AST 12 U/L (15-37) L 10/15/22 02:21 ALT 25 U/L (16-61) 10/15/22 02:21 Alkaline Phosphatase 78 U/L (45-117) 10/15/22 02:21 Home Medications: Amiodarone HCl [Cordarone*] 200 mg PO DAILY 08/15/22 Apixaban [Eliquis] 5 mg PO BID 08/15/22 Atorvastatin Calcium 40 mg PO BEDTIME 08/15/22 Gabapentin 400 mg PO TID 08/15/22 Metoprolol Tartrate 25 mg PO BID 08/15/22 Sertraline [Zoloft*] 100 mg PO DAILY 08/15/22 Hydrocodone 10/APAP 325 [[place] 10/325*] 1 tab PO Q6H PRN #15 tab 09/21/22 Metformin HCl [Glucophage*] 500 mg PO BIDWM #60 tab 09/21/22 Amlodipine [Norvasc*] 5 mg PO DAILY #30 tab 09/28/22 Levetiracetam [Keppra] 750 mg PO BID #60 tab 09/28/22 Diet: ADA Activity: Ad marisela Followup: Carlos Mendez DO [ACTIVE - CAN ADMIT] - 1 Week Time spent managing pt's care (in minutes): 28
[2022-10-15 08:25] VITALS: TEMP 97.8
[2022-10-15] MEDS: METOPROLOL TAR 25 MG TAB PO SCH (09:00)
[2022-10-15 09:58] VITALS: O2SAT 97
[2022-10-15] MEDS: Ringers Lactate 1,000 ML IV SCH (10:30)
--- NOTE | 2022-10-15 21:00 | P.PN ---
Date of Service: 10/15/22 Vital Signs Temp Pulse Resp BP Pulse Ox 97.8 F 50 18 137/67 97 10/15/22 08:00 10/15/22 08:09 10/15/22 08:00 10/15/22 08:09 10/15/22 08:00 Assessment/ Plan: Nephrology No dyspnea No chest pain No acute events overnight Vitals, medications, blood work and imaging reviewed in the chart. General: In no apparent distress, Oriented x3, Cooperative HEENT: Atraumatic Neck: Supple Respiratory: Clear to auscultation bilaterally Cardiovascular: No edema Gastrointestinal: Non-distended Musculoskeletal: No clubbing, No contractures Integumentary: No rashes, No cyanosis Neurological: Normal speech Laboratory Data (last 24 hrs) 10/14/22 00:53: Sodium Cancelled, Potassium Cancelled, BUN Cancelled, Creatinine Cancelled, Glucose Cancelled, Magnesium 2.1 10/14/22 00:53: Sodium 138, Potassium 5.2 H, BUN 29 H, Creatinine 1.64 H, Glucose 118 H 10/14/22 00:53: WBC 5.40, Hgb 11.2 L, Hct 35.1 L, Plt Count 333 Imagings Data: [id number] EXAM DESCRIPTION: US - Renal Ultrasound-Complete - 09/27/2022 4:02 am CLINICAL HISTORY: jennyfer Flank pain COMPARISON: No comparisons FINDINGS: Both kidneys are normal in size, shape and echotexture. The right kidney measures 10.5 x 4.8 x 4.4 cm. No hydronephrosis, focal mass or perinephric fluid. The left kidney measures 9.5 x 3.8 x 3.7 cm. No hydronephrosis, focal mass or pe rinephric fluid. 7 mm benign cyst. The urinary bladder is incompletely distended without gross abnormality seen. IMPRESSION: Unremarkable renal sonogram. Conclusions/Impression: Stage I JENNYFER in the setting of hypovolemia/ hypotension CKD II with Proteinuria -No NSAIDs -Discontinue IVF Hyperkalemia, resolved -Low potassium diet HTN with CKD -Discontinue IVF -Continue Amlodipine DM II with CKD & Polyneuropathy -Continue Gabapentin -RISS Anemia in chronic illness -Monitor H&H Cigarette smoker -Recommend cessation -Nicotine TD
== END 2022-10-15 10:50 | disposition home or self-care (01) ==
LOC: ER 00:38 → ERHOLD 01:46 → 2ND 12:11
PROVIDERS: ADMIT Hospitalist; ATTEND Internal Medicine
DX: N17.9 Acute kidney failure, unspecified (principal); E87.5 Hyperkalemia; N18.2 Chronic kidney disease, stage 2 (mild); E86.1 Hypovolemia; I48.11 Longstanding persistent atrial fibrillation; R56.9 Unspecified convulsions; R53.1 Weakness; I25.2 Old myocardial infarction; E78.5 Hyperlipidemia, unspecified; E11.22 Type 2 diabetes mellitus with diabetic chronic kidney disease; I12.9 Hypertensive chronic kidney disease with stage 1 through stage 4 chronic kidney disease, or unspecified chronic kidney disease; D63.1 Anemia in chronic kidney disease; F17.210 Nicotine dependence, cigarettes, uncomplicated; E11.42 Type 2 diabetes mellitus with diabetic polyneuropathy; I95.9 Hypotension, unspecified; R80.9 Proteinuria, unspecified; Z82.49 Family history of ischemic heart disease and other diseases of the circulatory system; Z79.01 Long term (current) use of anticoagulants; Z91.013 Allergy to seafood
CPT/HCPCS: 85025 ×2; 81001 ×2; 80048 ×2; 36415 ×2; 83735; 82550; 84100; 82947 ×6; 84550; 82570 ×2; 80053; 84156; 82043; 96360; 99285; J7120; J7030 ×3; G0378

== ENCOUNTER 2022-12-05 00:34 | Emergency (ER) | payer OTHER ==
--- OUTSIDE RECORDS SUMMARY | 2022-12-05 01:04 | XMS REPORT | Continuity of Care Document ---
:1965 Author Organization [facility] t Address [address] [facility] [address] [place] [address] Care Team Providers Name Role Phone Sharpless Primary Care Physician Jerry Roa Attending Clinician Unavailable JORDON VALDEZ Attending Clinician Unavailable JENI FARNSWORTH Attending Clinician Unavailable ALEXANDRA FINNEGAN Attending Clinician Unavailable LEIGHTON MINAYA Attending Clinician Unavailable Ramón Kraft NP Attending Clinician RAMÓN KRAFT Attending Clinician Unavailable YARED LÓPEZ Attending Clinician Unavailable PATRICK XAVIER Attending Clinician Unavailable Kain MANUFACTURING QUALITY MANAGER, Alexandra Attending Clinician MICHELINE DUPREE Attending Clinician Unavailable Doctor Unassigned, [place] Attending Clinician Unavailable Juliann BAILEY, Jeni Attending Clinician Hui Paez DO Attending Clinician 2, [facility] Attending Clinician Unavailable BLAS URBINA Attending Clinician Unavailable [facility] Attending Clinician LES ELLSWORTH Attending Clinician Unavailable Les Ellsworth DO Attending Clinician Fredis RN, Clare Attending Clinician Edy IBRAHIM, Alex Modi Attending Clinician Unavailable MALIK MAYO Attending Clinician Unavailable Brennan Love DO Attending Clinician Malik Mayo MD Attending Clinician Adolfo Hurley MD Attending Clinician ADOLFO HURLEY Attending Clinician Unavailable Hilda BAILEY, Francesca Attending Clinician Wilberto Joe MD Attending Clinician Naif Cartagena Attending Clinician Jose Alberto IBRAHIM, Cheryle Attending Clinician Unavailable Davin Walker MD Attending Clinician Faheem BAILEY, Jesus Liang Attending Clinician Thong Torres CRNA Attending Clinician Shawn YOUSIFP, Louisa Dolan Attending Clinician Kenneth Farr DO Attending Clinician [phone] Noman Brewer DO Attending Clinician Ron Pizano MD Attending Clinician Alyse Bates MA Attending Clinician Unavailable Beulah Barcenas MD Attending Clinician Mari Gamboa CRNA Attending Clinician Cheri Carroll Attending Clinician Unavailable Lozano MD, Fortino Feldman Attending Clinician [phone] Hector Orozco MD Attending Clinician Fahad Costello DO Attending Clinician [phone] Shaikh LEO, Uriel Attending Clinician July García DO Attending Clinician Arnulfo BAILEY, Laxmi Carbajal Attending Clinician Jeff Short MD Attending Clinician Pravin THOMAS, Chacha Carbajal Attending Clinician [phone] Renan BAILEY, Mary Estevez Attending Clinician Ab Lucas Attending Clinician Unavailable Solomon BAILEY, Wilberto Schwartz Attending Clinician Jarrett BAILEY, Ale Meeks Attending Clinician René De Jesus DO Attending Clinician [phone] Thong Cartagena MD Attending Clinician Fahad Anna MD Attending Clinician Margo Ingram Attending Clinician Unavailable KARINA_PRIYANKA_Yanick_Julissa Attending Clinician Unavailable Brennan Dupont Attending Clinician Unavailable RUDY EMERSON Attending Clinician Unavailable Vielka Arzate [facility] Attending Clinician Unavailable Osito BAILEY, Shazia Marshall Attending Clinician [phone] JAMIN LOPEZ Attending Clinician Unavailable Donaldo Martinez MD Attending Clinician [phone] Physician, No Primary or Family Admitting [...] Unavailable Sahil House MA Unavailable Unavailable Jose MANUFACTURING QUALITY MANAGER, Branch Unavailable Payers Payer Name Policy Type Policy Number Effective Date Expiration Date S cedric [facility] C [id number] 2021 Medicare WellMed 00:00:00 [facility] D [id number] 2021 Medicare WellMed 00:00:00 [facility] C [id number] 2021 2021 Medicare WellMed 00:00:00 00:00:00 WELLMED/C DUAL [id number] 2022 COMP ALLY HMO-POS 00:00:00 [employer] [id number] 2022 PLUS 00:00:00 MEDICAID DUAL [id number] 2022 COMPLETE HMO DSNP 00:00:00 [facility] [employer] - [id number] [address] [facility] 00:00:00 (MEDICARE REPLACEMENT/ADVANT AGE - HMO) GENERIC MEDICARE [id number] 2021 ADVANTAGE 00:00:00 [place]ICAID [place] [id number] 2021 00:00:00 MEDICARE PART A & [id number] 2020 2021 B 00:00:00 00:00:00 Problems Condition [...] extremity[place] [facility] Hyperkalem Hyperkalem Disease Active U [...] S/P S/P Disease Active Methodi amputation amputation 1-24 st 00:00: Hospita 00 l Streptococ Streptococ Disease Active M ethodi dilshad dilshad 1-[address] st bacteremia bacteremia 00:00: Ho spita 00 l Diabetic Diabetic Disease Active 2021-04 Metho di foot foot 19 st infection infection 00:00: Hosp teresa 00 l PAD PAD Disease Active 2021-04 Overview: Method i (periphera (periphera [address] l artery l artery 00:00: g of this Hos juan jose disease) disease) 00 note l might be different from the original. Added automatic ally from request for surgery [id number] Acute UTI Acute UTI Disease Active Met hodi 8 st 00:00: Hospita 00 l Pyelonephr Pyelonephr Disease Active M ethodi itis itis 7 st 00:00: Hospita 00 l Cellulitis Cellulitis Disease Active M ethodi 8-11 st 00:00: Hospita 00 l DEPRESSION DEPRESSIO Diagnosis Active 2016-03-21 Memoria N Active 12-11 14:23:00 l 12/12/2015 18:30: Larry kenean 00 [facility] Depression Depression 13321-5 Active 2021-06-29 Harsh 2.16 screen - screen - 13:29:33 Sahil 0.1 .113 Negative Negative 883.4. 2 (Renamed (Renamed from from Screening Screening for for depression depression ) ) (Z13.31) (V79.0)YUDITH Sprague Hypertensi Hypertensi 79748-6 Active 2021-06-29 Jose 2.16. on on (I10) 14:40:04 Branch 0.1.11 3 (401.9)[place] 883.4. 2 lis, MANUFACTURING QUALITY MANAGER Branch Nicotine Nicotine 14796-1 Active 2021-06-29 Harsh dependence dependence 13:29:27 Sahil 0.1.113 (F17.200) 883.4.2 (305.1)Melisa mathew MA Sahil Status Status 57213-0 Active 2021-06-29 Jose, . post below post below 16:29:18 Branch 0.1.113 knee knee 883.4.2 amputation amputation , right , right (Z89.511) (V49.75)Wi llis, MANUFACTURING QUALITY MANAGER Branch Type II Type II 22217-9 Active 2021-06-29 Jose, . diabetes diabetes 13:34:22 Branch 0.1. 113 mellitus mellitus 883.4. 2 (E11.9) (250.00)Wi llis, MANUFACTURING QUALITY MANAGER Branch Allergies, Adverse Reactions, Alerts Allergy Allergy [...] Known DA Active U [facility] Allergie 12-31 [facility] s 00:[facility] e 00 [facility] Shellfis Propensi Active Swelling All Meth greer h ty to 10-[address] Containi adverse 00:00: per pt Hospita ng reaction 00 l Products s to drug No Known Allergy Active 06.06.83 Allergie 311 0.1.113 s 00:00: 883.4.2 00 No Known DA Active U [facility] Allergie 10-07 [facility] s 00:00: d 00 [facility] Center No Known DA Active [facility] NO KNOWN Drug Active Univers ALLERGIE Class ity of S [facility] Food Food Active Memoria Seafood Seafood l [place] NO KNOWN Allergy Active [facility] Family History Family Member Diagnosis Comments Start Date Stop Date Source Natural father Heart disease [facility] Natural mother Diabetes [facility] Natural mother Heart disease [facility] Social History Social Habit Start Date Stop Date Quantity Comments Source History SDOH [facility] Fear History SDOH [facility] ealtedwige Emotional Alcohol Use: Non Drinker / 2.16.840. 1.52612 No Alcohol Use. 3.4.2 Drug Use: No drug use. 2.16.840.1.1 1388 3.4.2 Tobacco use: Current every 1-3ppd 2.16.840. 1.59755 day smoker. depending on 3.4.2 stress per pt History of tobacco Passive smoker Un iversity of use [place] [facility] History SDOH University o f Alcohol Std Drinks [place] [facility] History SDOH University o f Alcohol Binge [place] [facility] History SDOH University o f Social Connections [place] [facility] Get Together Branch History SDOH University o f Social Connections [place] [facility] Episcopalian Branch History SDOH University o f Social Connections [place] [facility] Membership Branch History SDOH University o f Social Connections [place] [facility] Meetings Branch Gender identity [facility] Sexual orientation [facility] Exposure to 2022-09-02 2022-09-12 Not sure University of SARS-CoV-2 (event) 00:00:00 21:28:00 [place] [facility] Tobacco use and 2022-08-05 2022-08-05 User of Universit y of exposure 00:00:00 00:00:00 smokeless [place] [facility] tobacco Branch History SDOH 2022-07-29 2022-07-29 1 University o f Alcohol Frequency 00:00:00 00:00:00 [place] [facility] History SDOH 2022-07-29 2022-07-29 5 University o f Social Connections 00:00:00 00:00:00 [place] [facility] Phone Branch History SDOH 2022-07-29 2022-07-29 5 University o f Social Connections 00:00:00 00:00:00 [place] [facility] Living Branch History SDOH 2022-07-29 2022-07-29 7 University o f Physical Activity 00:00:00 00:00:00 [place] [facility] edical DPW Branch History SDOH 2022-07-29 2022-07-29 3 University o f Physical Activity 00:00:00 00:00:00 [facility] edical MPS Branch History SDOH 2022-07-29 2022-07-29 [...] University o f Housing Places 00:00:00 00:00:00 [facility] dilshad Lived Branch History SDOH 2022-07-29 2022-07-29 1 University o f Housing Homeless 00:00:00 00:00:00 [place] Me dical Last Year Branch History of Social 2022-06-30 2022-06-[address] function 00:00:00 00:00:00 Hospital Cigarette 2022-06-25 2022-06-25 Rastafari pack-years 00:00:00 00:00:00 Hospital Alcohol Comment 2021-12-11 [...] alcohol (finding) Sex [birth year] At [birth year] MARIELA Arias 00:00:00 00:00:00 [facility] Center Smoking Status Start Date Stop Date Source Tobacco smoking consumption [facility] Smokes tobacco daily 2022-08-05 00:00:00 [facility] Ordered Filled Start Stop Current Ordering Indication Dosage Frequency Signature Comments Components Source Medication Medication Date Date Medication? Clinician (SIG) Name Name FADUMO KURTZ 2022- No 14U inject 14 Univers ULIN 7-19 07-19 Units ity of GLARGINE-YF 14:32: 00:00 under the [place] :00 skin in [facility] morning. As directed FADUMO KURTZ 2022- No 14U inject 14 Univers ULIN 7-19 07-19 Units ity of GLARGINE-YF 14:32: 00:00 under the [place] :00 skin in [facility] morning. As directed TESSIEINS 2022- No 14U inject 14 Univers ULIN 7-19 07-19 Units ity of GLARGINE-YF 14:32: 00:00 under the [place] :00 skin in [facility] morning. As directed FADUMO KURTZ 2022- No 14U inject 14 Univers ULIN 7-19 07-19 Units ity of GLARGINE-YF 14:32: 00:00 under the [place] :00 skin in [facility] morning. As directed divalproex Yes [id number] 500mg Take 1 Univers ER 500 mg 7-19 tablet by ity o f 24 hr 00:00: mouth [place] tablet 00 every 24 Medical (tw[place]- [place] ur) hours. insulin Yes [id number] 14U inject 14 Univers glargine 7-19 Units ity of (SEMGLEE 00:00: under the [facility] U-100 00 skin in [facility] INSULIN) [facility] 100 unit/mL morning. injection amiodarone Yes [id number] 200mg Take 1 Univers 200 mg 7-19 tablet by ity of tablet 00:00: mouth in [place] the morning. Branch apixaban 5 2022-0 Yes 5mg Take 1 Unive rs mg tablet 7-19 tablet by ity o f 00:00: mouth in [place] the morning Branch and 1 tablet in the evening. Indication s: ATRIAL FIBRILLATI ON metFORMIN 2022-0 Yes [id number] 500mg Take 1 Univers 500 mg 7-19 tablet by ity of tablet 00:00: mouth in [place] 00 the morning Branch and 1 tablet in the evening. Take with meals. divalproex 2022-0 Yes [id number] 500mg Take 1 Univers ER 500 mg 7-19 tablet by ity o f 24 hr 00:00: mouth [place] tablet 00 every 24 Medical (- Branch ur) hours. insulin 2022-0 Yes [id number] 14U inject 14 Univers glargine 7-19 Units ity of ([place] 00:00[place] U-100 00 [place] in Medical INSULIN) the Branch 100 unit/mL morning. injection amiodarone 2022-0 Yes [id number] 200mg Take 1 Univers 200 mg 7-19 tablet by ity of tablet 00:00: mouth in [place] the morning. Branch apixaban 5 2022-0 Yes 5mg Take 1 Unive rs mg tablet 7-19 tablet by ity o f 00:00: mouth in [place] the morning Branch and 1 tablet in the evening. Indication s: ATRIAL FIBRILLATI ON metFORMIN 2022-0 Yes [id number] 500mg Take 1 Univers 500 mg 7-19 tablet by ity of tablet 00:00: mouth in [place] the morning Branch and 1 tablet in the evening. Take with meals. divalproex 2022-0 Yes [id number] 500mg Take 1 Univers ER 500 mg 7-19 tablet by ity o f 24 hr 00:00: mouth [place] tablet 00 every 24 Medical (- Branch ur) hours. insulin 2022-0 Yes [id number] 14U inject 14 Univers glargine 7-19 Units ity of ([place]GLE[place] 00:00[place] U-100 [place] Medical INSULIN) the Branch 100 unit/mL morning. injection amiodarone 2022-0 Yes [id number] 200mg Take 1 Univers 200 mg 7-19 tablet by ity of tablet 00:00: mouth in [place] 00 the Medical morning. Branch apixaban 5 2022-0 Yes 5mg Take 1 Unive rs mg tablet 7-19 tablet by ity o f 00:00: mouth in [place] 00 the Medical morning Branch and 1 tablet in the evening. Indication s: ATRIAL FIBRILLATI ON metFORMIN 2022-0 Yes [id number] 500mg Take 1 Univers 500 mg 7-19 tablet by ity of tablet 00:00: mouth in [place] 00 the Medical morning Branch and 1 tablet in the evening. Take with meals. DIVALPROEX 2023-0 Yes [id number] TAKE 1 Univers ER 500 mg 6-30 TABLET BY ity o f 24 hr 00:00: MOUTH [place] tablet 00 EVERY 24 Medical HOURS Branch DIVALPROEX 2023-0 2023- No [id number] TAKE 1 Univers ER 500 mg 6-30 07-19 TABLET BY ity of 24 hr 00:00: 00:00 MOUTH [place] tablet 00 :00 EVERY 24 Medical HOURS Branch DIVALPROEX 2023-0 2023- No [id number] TAKE 1 Univers ER 500 mg 6-30 07-19 TABLET BY ity of 24 hr 00:00: 00:00 MOUTH [place] tablet 00 :00 EVERY 24 Medical HOURS Branch DIVALPROEX 2023-0 2023- No [id number] TAKE 1 Univers ER 500 mg 6-30 07-19 TABLET BY ity of 24 hr 00:00: 00:00 MOUTH [place] tablet 00 :00 EVERY 24 Medical HOURS Branch DIVALPROEX 2023-0 2023- No [id number] TAKE 1 Univers ER 500 mg 6-30 07-19 TABLET BY ity of 24 hr 00:00: 00:00 MOUTH [place] tablet 00 :00 EVERY 24 Medical HOURS Branch blood sugar 3-0 Yes [id number] Check U nivers diagnostic 6-07 blood ity of strip 00:00: sugar 2 [place] 00 times a Medical day. Branch E11.9. Brand per insurance. Uses ACCU-CHEK machine blood sugar 2022-0 Yes [id number] Check U nivers diagnostic 6-07 blood ity of strip 00:00: sugar 2 [place] 00 times a Medical day. Branch E11.9. Brand per insurance. Uses ACCU-CHEK machine blood sugar 2023-0 Yes [id number] Check U nivers diagnostic 6-07 blood ity of strip 00:00: sugar 2 [place] 00 times a Medical day. Branch E11.9. Brand per insurance. Uses ACCU-CHEK machine blood sugar 2023-0 Yes [id number] Check U nivers diagnostic 6-07 blood ity of strip 00:00: sugar 2 [place] 00 times a Medical day. Branch E11.9. Brand per insurance. Uses ACCU-CHEK machine blood sugar 2023-0 Yes [id number] Check U nivers diagnostic 6-07 blood ity of strip 00:00: sugar 2 [place] 00 times a Medical day. Branch E11.9. Brand per insurance. Uses ACCU-CHEK machine blood sugar 2023-0 Yes [id number] Check U nivers diagnostic 6-07 blood ity of strip 00:00: sugar 2 [place] 00 times a Medical day. Branch E11.9. Brand per insurance. Uses ACCU-CHEK machine blood sugar 2023-0 Yes [id number] Check U nivers diagnostic 6-07 blood ity of strip 00:00: sugar 2 [place] 00 times a Medical day. Branch E11.9. Brand per insurance. Uses ACCU-CHEK machine blood sugar 2023-0 Yes [id number] Check U nivers diagnostic 6-07 blood ity of strip 00:00: sugar 2 [place] 00 times a Medical day. Branch E11.9. Brand per insurance. Uses ACCU-CHEK machine blood sugar 2023-0 Yes [id number] Check U nivers diagnostic 6-07 blood ity of strip 00:00: sugar 2 [place] 00 times a Medical day. Branch E11.9. Brand per insurance. Uses ACCU-CHEK machine metFORMIN 2023-0 2023- No 500mg Take 1 Univ ers 500 mg 09-21 tablet by ity of tablet 00:00: 00:00 mouth in [place] 00 :00 the Medical morning Branch and 1 tablet in the evening. Take with meals. metFORMIN 2023-0 2023- No 500mg Take 1 Univ ers 500 mg 09-21- tablet by ity of tablet 00:00: 00:00 mouth in [place] 00 :00 the Medical morning Branch and 1 tablet in the evening. Take with meals. divalproex 2023-0 2023- No 500mg Take 1 Uni vers ER 500 mg 5-25 05-25 tablet by ity of 24 hr 14:14: 00:00 mouth [place] tablet 51 :00 every 24 Medical (twenty-fo Branch ur) hours. divalproex 2022- No 500mg Take 1 Uni vers ER 500 mg 5-25 05-25 tablet by ity of 24 hr 14:14: 00:00 mouth [place] tablet 51 :00 every 24 Medical (-fo [place] ur) hours. SERTraline 2022-0 2023- No 25mg Take 1 Univ ers 25 mg 5-25 05-25 tablet by ity of tablet 14:13: 00:00 mouth in [place] 30 :00 the Medical morning. Branch SERTraline 2022-0 2023- No 25mg Take 1 Univ ers 25 mg 5-25 05-25 tablet by ity of tablet 14:13: 00:00 mouth in [place] 30 :00 the Medical morning. Branch SEMGLEE,INS 0 Yes 14U inject 14 U nivers ULIN 5-25 Units ity of GLARGINE-YF 14:08: under the [facility] [place] 13 skin in [facility] the [place] morning. As directed SEMGLEE,INS 2022-0 Yes 14U inject 14 U nivers ULIN 5-25 Units ity of GLARGINE-YF 14:08: under the [facility] 13 skin in [facility] the [place] morning. As directed SEMGLEE,INS 2022-0 Yes 14U inject 14 U nivers ULIN 5-25 Units ity of GLARGINE-YF 14:08: under the [facility] 13 skin in [facility] the [place] morning. As directed SEMGLEE,INS 2022-0 Yes 14U inject 14 U nivers ULIN 5-25 Units ity of GLARGINE-YF 14:08: under the [facility] 13 skin in [facility] the [place] morning. As directed SEMGLEE,INS 2022-0 Yes 14U inject 14 U nivers ULIN 5-25 Units ity of GLARGINE-YF 14:08: [facility] the [place] morning. As directed SEMGLEE,INS 2022-0 Yes 14U inject 14 U nivers ULIN 5-25 Units ity of GLARGINE-YF 14:08: under the [facility] 13 skin in [facility] morning. As directed SEMGLEE,INS 2023-0 Yes 14U inject 14 U nivers ULIN 5-25 Units ity of GLARGINE-YF 14:08: [place] skin in Medical the Branch morning. As directed SEMGLEE,INS 3-0 Yes 14U inject 14 U nivers ULIN 5-25 Units ity of GLARGINE-YF 14:08: [place] the [place] skin in Medical the Branch morning. As directed SEMGLEE,INS 2022-0 Yes 14U inject 14 U nivers ULIN 5-25 Units ity of GLARGINE-YF 14:08: under the [place] skin in [facility] the Branch morning. As directed SEMGLEE,INS 2022-0 Yes 14U inject 14 U nivers ULIN 5-25 Units ity of GLARGINE-YF 14:08: under the [place] skin in [facility] the Branch morning. As directed SEMGLEE,INS 2022-0 Yes 14U inject 14 U nivers ULIN 5-25 Units ity of GLARGINE-YF 14:08: under the [place] skin in [facility] the Branch morning. As directed SEMGLEE,INS 2022-0 Yes 14U inject 14 U nivers ULIN 5-25 Units ity of GLARGINE-YF 14:08: under the [place] skin in [facility] the Branch morning. As directed SEMGLEE,INS 2022-0 Yes 14U inject 14 U nivers ULIN 5-25 Units ity of GLARGINE-YF 14:08: under the [place] skin in [facility] the Branch morning. As directed SEMGLEE,INS 3-0 Yes 14U inject 14 U nivers ULIN 5-25 Units ity of GLARGINE-YF 14:08: under the [place] 13 skin in [facility] the Branch morning. As directed SEMGLEE,INS 3-0 Yes 14U inject 14 U nivers ULIN 5-25 Units ity of GLARGINE-YF 14:08: under the [place] 13 skin in [facility] the Branch morning. As directed SEMGLEE,INS 3-0 Yes 14U inject 14 U nivers ULIN 5-25 Units ity of GLARGINE-YF 14:08: under the [place] skin in Medical the Branch morning. As directed SEMGLEE,INS 2022-0 Yes 14U inject 14 U nivers ULIN 5-25 Units ity of GLARGINE-YF 14:08: under the [place] skin in [facility] the Branch morning. As directed SEMGLEE,INS 2022-0 Yes 14U inject 14 U nivers ULIN 5-25 Units ity of GLARGINE-YF 14:08: under the [place] skin in [facility] the Branch morning. As directed SEMGLEE,INS 2022-0 Yes 14U inject 14 U nivers ULIN 5-25 Units ity of GLARGINE-YF 14:08: under the [place] skin in [facility] the [place] morning. As directed SERTraline 2022-0 Yes [id number] 25mg Take 1 Univers 25 mg 5-25 tablet by ity of tablet 00:00: mouth in [place] the Medical morning. Branch SERTraline 2022-0 Yes [id number] 100mg Take 1 Univers 100 mg 5-25 tablet by ity of tablet 00:00: mouth in [place] 00 the Medical morning. Branch divalproex 2022-0 Yes [id number] 500mg Take 1 Univers ER 500 mg 5-25 tablet by ity o f 24 hr 00:00: mouth [place] tablet 00 every 24 Medical (twenty-fo [place] ur) hours. Bifidobacte 2022-0 Yes [id number] 4mg Take 1 Univers rium 5-25 capsule by ity of Infantis 00:00: mouth in [place] (ALIGN) 4 00 the Medical mg capsule morning. Bran h SERTraline 2022-0 Yes [id number] 25mg Take 1 Univers 25 mg 5-25 tablet by ity of tablet 00:00: mouth in [place] 00 the Medical morning. Branch SERTraline 2022-0 Yes [id number] 100mg Take 1 Univers 100 mg 5-25 tablet by ity of tablet 00:00: mouth in [place] 00 the Medical morning. Branch divalproex 3-0 Yes [id number] 500mg Take 1 Univers ER 500 mg 5-25 tablet by ity o f 24 hr 00:00: mouth [place] tablet 00 every 24 Medical (twenty-fo Branch ur) hours. Bifidobacte 2023-0 Yes [id number] 4mg Take 1 Univers rium 5-25 capsule by ity of Infantis 00:00: mouth in [place] (ALIGN) 4 00 the Medical mg capsule morning. Branc h SERTraline 2023-0 Yes [id number] 25mg Take 1 Univers 25 mg 5-25 tablet by ity of tablet 00:00: mouth in [place] 00 the Medical morning. Branch SERTraline 2023-0 Yes [id number] 100mg Take 1 Univers 100 mg 5-25 tablet by ity of tablet 00:00: mouth in [place] 00 the Medical morning. Branch divalproex 2023-0 Yes [id number] 500mg Take 1 Univers ER 500 mg 5-25 tablet by ity o f 24 hr 00:00: mouth [place] tablet 00 every 24 Medical ( [place] ur) hours. Bifidobacte 2023-0 Yes [id number] 4mg Take 1 Univers rium 5-25 capsule by ity of Infantis 00:00: mouth in [place] (ALIGN) 4 00 the Medical mg capsule morning. Branc h SERTraline 2023-0 Yes [id number] 25mg Take 1 Univers 25 mg 5-25 tablet by ity of tablet 00:00: mouth in [place] 00 the Medical morning. Branch SERTraline 2023-0 Yes [id number] 100mg Take 1 Univers 100 mg 5-25 tablet by ity of tablet 00:00: mouth in [place] 00 the Medical morning. Branch divalproex 2023-0 Yes [id number] 500mg Take 1 Univers ER 500 mg 5-25 tablet by ity o f 24 hr 00:00: mouth [place] tablet 00 every 24 Medical ( [place] ur) hours. Bifidobacte 2023-0 Yes [id number] 4mg Take 1 Univers rium 5-25 capsule by ity of Infantis 00:00: mouth in [place] (ALIGN) 4 00 the Medical mg capsule morning. Branc h SERTraline 2023-0 Yes [id number] 25mg Take 1 Univers 25 mg 5-25 tablet by ity of tablet 00:00: mouth in [place] 00 the Medical morning. Branch SERTraline 2023-0 Yes [id number] 100mg Take 1 Univers 100 mg 5-25 tablet by ity of tablet 00:00: mouth in [place] 00 the Medical morning. Branch divalproex 2023-0 Yes [id number] 500mg Take 1 Univers ER 500 mg 5-25 tablet by ity o f 24 hr 00:00: mouth [place] tablet 00 every 24 Medical ( [place] ur) hours. Bifidobacte 2023-0 Yes [id number] 4mg Take 1 Univers rium 5-25 capsule by ity of Infantis 00:00: mouth in [place] (ALIGN) 4 00 the Medical mg capsule morning. Branc h SERTraline 2023-0 Yes [id number] 25mg Take 1 Univers 25 mg 5-25 tablet by ity of tablet 00:00: mouth in [place] 00 the Medical morning. Branch SERTraline 2023-0 Yes [id number] 100mg Take 1 Univers 100 mg 5-25 tablet by ity of tablet 00:00: mouth in [place] 00 the Medical morning. Branch divalproex 2023-0 Yes [id number] 500mg Take 1 [facility] ER 500 mg 5-25 tablet by ity o f 24 hr 00:00: mouth [place] tablet 00 every 24 Medical ( [place] ur) hours. Bifidobacte 2023-0 Yes [id number] 4mg Take 1 [facility] rium 5-25 capsule by ity of [facility] 00:00: mouth in [place] (ALIGN) 4 00 the Medical mg capsule morning. Branc h SERTraline 2023-0 Yes [id number] 25mg Take 1 [facility] 25 mg 5-25 tablet by ity of tablet 00:00: mouth in [place] 00 the Medical morning. Branch SERTraline 2023-0 Yes [id number] 100mg Take 1 [facility] 100 mg 5-25 tablet by ity of tablet 00:00: mouth in [place] 00 the Medical morning. Branch divalproex 2023-0 Yes [id number] 500mg Take 1 [facility] ER 500 mg 5-25 tablet by ity o f 24 hr 00:00: mouth [place] tablet 00 every 24 Medical (twenty [place] ur) hours. Bifidobacte 2023-0 Yes [id number] 4mg Take 1 [facility] rium 5-25 capsule by ity of [facility] 00:00: mouth in [place] (ALIGN) 4 00 the Medical mg capsule morning. Branc h SERTraline 2023-0 Yes [id number] 25mg Take 1 [facility] 25 mg 5-25 tablet by ity of tablet 00:00: mouth in [place] 00 the Medical morning. Branch SERTraline 2023-0 Yes [id number] 100mg Take 1 [facility] 100 mg 5-25 tablet by ity of tablet 00:00: mouth in [place] 00 the Medical morning. Branch divalproex 2023-0 Yes [id number] 500mg Take 1 [facility] ER 500 mg 5-25 tablet by ity o f 24 hr 00:00: mouth [place] tablet 00 every 24 Medical (twenty- [place] ur) hours. Bifidobacte 2023-0 Yes [id number] 4mg Take 1 [facility] rium 5-25 capsule by ity of [facility] 00:00: mouth in [place] (ALIGN) 4 00 the Medical mg capsule morning. Branc h SERTraline 2023-0 Yes [id number] 25mg Take 1 [facility] 25 mg 5-25 tablet by ity of tablet 00:00: mouth in [place] 00 the Medical morning. Branch SERTraline 2023-0 Yes [id number] 100mg Take 1 [facility] 100 mg 5-25 tablet by ity of tablet 00:00: mouth in [place] 00 the Medical morning. Branch divalproex 2023-0 Yes [id number] 500mg Take 1 [facility] ER 500 mg 5-25 tablet by ity o f 24 hr 00:00: mouth [place] tablet 00 every 24 Medical (- [place] ur) hours. Bifidobacte 2023-0 Yes [id number] 4mg Take 1 [facility] rium 5-25 capsule by ity of [facility] 00:00: mouth in [place] (ALIGN) 4 00 the Medical mg capsule morning. Branc h SERTraline 2023-0 Yes [id number] 25mg Take 1 [facility] 25 mg 5-25 tablet by ity of tablet 00:00: mouth in [place] 00 the Medical morning. Branch SERTraline 2023-0 Yes [id number] 100mg Take 1 [facility] 100 mg 5-25 tablet by ity of tablet 00:00: mouth in [place] 00 the Medical morning. Branch Bifidobacte 2023-0 Yes [id number] 4mg Take 1 [facility] rium 5-25 capsule by it[facility] of [facility] 00:00: mouth in [place] (ALIGN) 4 00 the Medical mg capsule morning. Branc h SERTraline 2023-0 Yes [id number] 25mg Take 1 [facility] 25 mg 5-25 tablet by ity of tablet 00:00: mouth in [place] 00 the Medical morning. Branch SERTraline 2023-0 Yes [id number] 100mg Take 1 [facility] 100 mg 5-25 tablet by ity of tablet 00:00: mouth in [place] 00 the Medical morning. Branch Bifidobacte 2023-0 Yes [id number] 4mg Take 1 [facility] rium 5-25 capsule by [facility] of [facility] 00:00: mouth in [place] (ALIGN) 4 00 the Medical mg capsule morning. Branc h SERTraline 2023-0 Yes [id number] 25mg Take 1 [facility] 25 mg 5-25 tablet by ity of tablet 00:00: mouth in [place] 00 the Medical morning. Branch Bifidobacte 2023-0 Yes [id number] 4mg Take 1 [facility] rium 5-25 capsule by it[facility] of [facility] 00:00: mouth in [place] (ALIGN) 4 00 the Medical mg capsule morning. Branc h SERTraline 2023-0 Yes [id number] 25mg Take 1 [facility] 25 mg 5-25 tablet by ity of tablet 00:00: mouth in [place] 00 the Medical morning. Branch Bifidobacte 2023-0 Yes [id number] 4mg Take 1 [facility] rium 5-25 capsule by it[facility] of [place] 00:00: mouth in [place] (ALIGN) 4 00 the Medical mg capsule morning. Branc h SERTraline 2023-0 Yes [id number] 25mg Take 1 [facility] 25 mg 5-25 tablet by ity of tablet 00:00: mouth in [place] 00 the Medical morning. Branch Bifidobacte 2023-0 Yes [id number] 4mg Take 1 [facility] rium 5-25 capsule by ity of [place] 00:00: mouth in [place] (ALIGN) 4 00 the Medical mg capsule morning. Branc h SERTraline 2023-0 Yes [id number] 25mg Take 1 [facility] 25 mg 5-25 tablet by ity of tablet 00:00: mouth in [place] 00 the Medical morning. Branch Bifidobacte 2023-0 Yes [id number] 4mg Take 1 [facility] rium 5-25 capsule by it[facility] of [place] 00:00: mouth in [place] (ALIGN) 4 00 the Medical mg capsule morning. Branc h SERTraline 2023-0 Yes [id number] 25mg Take 1 [facility] 25 mg 5-25 tablet by ity of tablet 00:00: mouth in [place] 00 the Medical morning. Branch Bifidobacte 2023-0 Yes [id number] 4mg Take 1 [facility] rium 5-25 capsule by ity of [place] 00:00: mouth in [place] (ALIGN) 4 00 the Medical mg capsule morning. Branc h SERTraline 2023-0 Yes [id number] 25mg Take 1 [facility] 25 mg 5-25 tablet by ity of tablet 00:00: mouth in [place] 00 the Medical morning. Branch SERTraline 2023-0 Yes [id number] 100mg Take 1 [facility] 100 mg 5-25 tablet by ity of tablet 00:00: mouth in [place] 00 the Medical morning. Branch divalproex 2023-0 Yes [id number] 500mg Take 1 [facility] ER 500 mg 5-25 tablet by ity o f 24 hr 00:00: mouth [place] tablet 00 every 24 Medical (twenty- [place] ur) hours. Bifidobacte 2023-0 Yes [id number] 4mg Take 1 [facility] rium 5-25 capsule by it[facility] of [place] 00:00: mouth in [place] (ALIGN) 4 00 the Medical mg capsule morning. Branc h SERTraline 2023-0 Yes [id number] 25mg Take 1 [facility] 25 mg 5-25 tablet by ity of tablet 00:00: mouth in [place] 00 the Medical morning. Branch SERTraline 2023-0 Yes [id number] 100mg Take 1 [facility] 100 mg 5-25 tablet by ity of tablet 00:00: mouth in [place] 00 the Medical morning. Branch divalproex 2023-0 Yes [id number] 500mg Take 1 [facility] ER 500 mg 5-25 tablet by ity o f 24 hr 00:00: mouth [place] tablet 00 every 24 Medical (twenty- [place] [facility]) hours. Bifidobacte 2023-0 Yes [id number] 4mg Take 1 [facility] rium 5-25 capsule by it[facility] of [facility] 00:00: mouth in [place] (ALIGN) 4 00 the Medical mg capsule morning. Branc h SERTraline 2023-0 Yes [id number] 25mg Take 1 [facility] 25 mg 5-25 tablet by ity of tablet 00:00: mouth in [place] 00 the Medical morning. Branch SERTraline 2023-0 Yes [id number] 100mg Take 1 [facility] 100 mg 5-25 tablet by ity of tablet 00:00: mouth in [place] 00 the Medical morning. Branch divalproex 2023-0 Yes [id number] 500mg Take 1 [facility] ER 500 mg 5-25 tablet by ity o f 24 hr 00:00: mouth [place] tablet 00 every 24 Medical (twenty- Branch ur) hours. Bifidobacte 2023-0 Yes [id number] 4mg Take 1 [facility] rium 5-25 capsule by it[facility] of [facility] 00:00: mouth in [place] (ALIGN) 4 00 the Medical mg capsule morning. Branc h SERTraline 2022-0 Yes [id number] 25mg Take 1 [facility] 25 mg 5-25 tablet by ity of tablet 00:00: mouth in [place] 00 the Medical morning. Branch SERTraline 3-0 Yes [id number] 100mg Take 1 [facility] 100 mg 5-25 tablet by ity of tablet 00:00: mouth in [place] 00 the Medical morning. Branch divalproex 3-0 Yes [id number] 500mg Take 1 [facility] ER 500 mg 5-25 tablet by ity o f 24 hr 00:00: mouth [place] tablet 00 every 24 Medical (twenty Branch ur) hours. Bifidobacte 2023-0 Yes [id number] 4mg Take 1 [facility] rium 5-25 capsule by ity of [place] 00:00: mouth in [place] (ALIGN) 4 00 the Medical mg capsule morning. Branc h SERTraline 2022-0 Yes [id number] 25mg Take 1 [facility] 25 mg 5-25 tablet by ity of tablet 00:00: mouth in [place] 00 the Medical morning. Branch SERTraline 2022-0 Yes [id number] 100mg Take 1 [facility] 100 mg 5-25 tablet by ity of tablet 00:00: mouth in [place] 00 the Medical morning. Branch divalproex 2023-0 Yes [id number] 500mg Take 1 [facility] ER 500 mg 5-25 tablet by ity o f 24 hr 00:00: mouth [place] tablet 00 every 24 Medical (twenty-[facility] Branch ur) hours. Bifidobacte 2023-0 Yes [id number] 4mg Take 1 [facility] rium 5-25 capsule by ity of [place] 00:00: mouth in [place] (ALIGN) 4 00 the Medical mg capsule morning. Branc h SERTraline 2023-0 Yes [id number] 25mg Take 1 [facility] 25 mg 5-25 tablet by ity of tablet 00:00: mouth in [place] 00 the Medical morning. Branch SERTraline 2023-0 Yes [id number] 100mg Take 1 [facility] 100 mg 5-25 tablet by ity of tablet 00:00: mouth in [place] 00 the Medical morning. Branch divalproex 2022-0 Yes [id number] 500mg Take 1 [facility] ER 500 mg 5-25 tablet by ity o f 24 hr 00:00: mouth [place] tablet 00 every 24 Medical (twenty-[facility] Branch ur) hours. Bifidobacte 2022-0 Yes [id number] 4mg Take 1 [facility] rium 5-25 capsule by ity of [facility] 00:00: mouth in [place] (ALIGN) 4 00 the Medical mg capsule morning. Bran h gabapentin 2022-2022- Yes [id number] 400mg Take 1 [facility] 400 mg 5-25 08-24 capsule by ity of capsule 00:00: 04:59 mouth in [place] 00 :00 the [facility] morning [place] and 1 capsule at noon and 1 capsule in the evening. Do all this for 90 days. gabapentin 2022-0 2022- Yes [id number] 400mg Take 1 [facility] 400 mg 5-25 08-24 capsule by ity of capsule 00:00: 04:59 mouth in [place] 00 :00 the [facility] morning [place] and 1 capsule at noon and 1 capsule in the evening. Do all this for 90 days. gabapentin 2022-0 2022- Yes [id number] 400mg Take 1 [facility] 400 mg 5-25 08-24 capsule by ity of capsule 00:00: 04:59 mouth in [place] 00 :00 the [facility] morning [place] and 1 capsule at noon and 1 capsule in the evening. Do all this for 90 days. gabapentin 2022-0 2022- Yes [id number] 400mg Take 1 [facility] 400 mg 5-25 08-24 capsule by ity of capsule 00:00: 04:59 mouth in [place] 00 :00 the [facility] morning [place] and 1 capsule at noon and 1 capsule in the evening. Do all this for 90 days. gabapentin 2022-0 2022- Yes [id number] 400mg Take 1 [facility] 400 mg 5-25 08-24 capsule by ity of capsule 00:00: 04:59 mouth in [place] 00 :00 the [facility] morning [place] and 1 capsule at noon and 1 capsule in the evening. Do all this for 90 days. gabapentin 2022-0 2022- Yes [id number] 400mg Take 1 [facility] 400 mg 5-25 08-24 capsule by ity of capsule 00:00: 04:59 mouth in [place] 00 :00 [facility] morning [place] and 1 capsule at noon and 1 capsule in the evening. Do all this for 90 days. gabapentin 2022-0 202- Yes [id number] 400mg Take 1 [facility] 400 mg 5-25 08-24 capsule by ity of capsule 00:00: 04:59 mouth in [place] 00 :00 [facility] and 1 capsule at noon and 1 capsule in the evening. Do all this for 90 days. gabapentin 2022-0 2022- Yes [id number] 400mg Take 1 [facility] 400 mg 5-25 08-24 capsule by ity of capsule 00:00: 04:59 mouth in [place] 00 :00 [facility] and 1 capsule at noon and 1 capsule in the evening. Do all this for 90 days. gabapentin 2022-0 2022- Yes [id number] 400mg Take 1 [facility] 400 mg 5-25 08-24 capsule by ity of capsule 00:00: 04:59 mouth in [place] 00 :00 [facility] and 1 capsule at noon and 1 capsule in the evening. Do all this for 90 days. gabapentin 2022-0 2022- Yes [id number] 400mg Take 1 [facility] 400 mg 5-25 08-24 capsule by ity of capsule 00:00: 04:59 mouth in [place] 00 :00 [facility] and 1 capsule at noon and 1 capsule in the evening. Do all this for 90 days. gabapentin 2022-0 2022- Yes [id number] 400mg Take 1 [facility] 400 mg 5-25 08-24 capsule by ity of capsule 00:00: 04:59 mouth in [place] 00 :00 [facility] and 1 capsule at noon and 1 capsule in the evening. Do all this for 90 days. gabapentin 2022-0 202- Yes [id number] 400mg Take 1 [facility] 400 mg 5-25 08-24 capsule by ity of capsule 00:00: 04:59 mouth in [place] 00 :00 [facility] and 1 capsule at noon and 1 capsule in the evening. Do all this for 90 days. gabapentin 2022-0 202- Yes [id number] 400mg Take 1 [facility] 400 mg 5-25 08-24 capsule by ity of capsule 00:00: 04:59 mouth in [place] 00 :00 the Medical morning Branch and 1 capsule at noon and 1 capsule in the evening. Do all this for 90 days. gabapentin 2023-0 2023- Yes [id number] 400mg Take 1 [facility] 400 mg 5-25 08-24 capsule by ity of capsule 00:00: 04:59 mouth in [place] 00 :00 the Medical morning Branch and 1 capsule at noon and 1 capsule in the evening. Do all this for 90 days. gabapentin 2023-0 202- Yes [id number] 400mg Take 1 [facility] 400 mg 5-25 08-24 capsule by ity of capsule 00:00: 04:59 mouth in [place] 00 :00 the Medical morning Branch and 1 capsule at noon and 1 capsule in the evening. Do all this for 90 days. gabapentin 2023-0 2023- Yes [id number] 400mg Take 1 [facility] 400 mg 5-25 08-24 capsule by ity of capsule 00:00: 04:59 mouth in [place] 00 :00 the [facility] morning [place] and 1 capsule at noon and 1 capsule in the evening. Do all this for 90 days. gabapentin 202-0 2023- Yes [id number] 400mg Take 1 [facility] 400 mg 5-25 08-24 capsule by ity of capsule 00:00: 04:59 mouth in [place] 00 :00 the [facility] morning [place] and 1 capsule at noon and 1 capsule in the evening. Do all this for 90 days. gabapentin 2023-0 2023- Yes [id number] 400mg Take 1 [facility] 400 mg 5-25 08-24 capsule by ity of capsule 00:00: 04:59 mouth in [place] 00 :00 the [facility] morning [place] and 1 capsule at noon and 1 capsule in the evening. Do all this for 90 days. gabapentin 2023-0 2023- Yes [id number] 400mg Take 1 [facility] 400 mg 5-25 08-24 capsule by ity of capsule 00:00: 04:59 mouth in [place] 00 :00 the Medical morning [place] and 1 capsule at noon and 1 capsule in the evening. Do all this for 90 days. gabapentin 2023-0 2023- Yes [id number] 400mg Take 1 [facility] 400 mg 5-25 08-24 capsule by ity of capsule 00:00: 04:59 mouth in [place] 00 :00 the Medical morning Branch and 1 capsule at noon and 1 capsule in the evening. Do all this for 90 days. gabapentin 2022- Yes [id number] 400mg Take 1 [facility] 400 mg 5-25 08-24 capsule by ity of capsule 00:00: 04:59 mouth in [place] 00 :00 the Medical morning Branch and 1 capsule at noon and 1 capsule in the evening. Do all this for 90 days. gabapentin 2022- Yes [id number] 400mg Take 1 [facility] 400 mg 5-25 08-24 capsule by ity of capsule 00:00: 04:59 mouth in [place] 00 :00 the Medical morning Branch and 1 capsule at noon and 1 capsule in the evening. Do all this for 90 days. SERTraline 2022- No [id number] 100mg Take 1 [facility] 100 mg 5-25 07-19 tablet by ity of tablet 00:00: 00:00 mouth in [place] 00 :00 the Medical morning. Branch SERTraline 2022- No [id number] 100mg Take 1 [facility] 100 mg 5-25 07-19 tablet by ity of tablet 00:00: 00:00 mouth in [place] 00 :00 the Medical morning. Branch SERTraline 2022- No [id number] 100mg Take 1 [facility] 100 mg 5-25 07-19 tablet by ity of tablet 00:00: 00:00 mouth in [place] 00 :00 the Medical morning. Branch SERTraline 2022- No [id number] 100mg Take 1 [facility] 100 mg 5-25 07-19 tablet by ity of tablet 00:00: 00:00 mouth in [place] 00 :00 the Medical morning. Branch divalproex 2022- No [id number] 500mg Take 1 [facility] ER 500 mg 5-25 06-30 tablet by ity of 24 hr 00:00: 00:00 mouth [place] tablet 00 :00 every 24 Medical (twenty-fo Branch ur) hours. Miscellaneo Yes Bilateral U nivers us Medical 09-10 prosthetic ity of Supply Mis 10:46: s - [facility] 19 Medical Branch lancing Yes 1{each} Take 1 Unive rs device/lanc 09-10 Each in ity o f ets 10:46: [...] [facility] [place] [facility] 19 Medical Branch lancing 2023-0 Yes 1{each} Take 1 Unive [...] evening. Miscellaneo 2022-0 Yes Bilateral U nivers Medical 5-23 prosthetic ity of Supply Misc 10:46: s - [facility] [place] 19 Medical Branch lancing 0 Yes 1{each} Take 1 Unive rs device/lanc 5-23 Each in ity o f ets 10:46: the [place] (ACCU-CHEK 19 morning Medica l SOFT DEV and 1 Each Branc h LANCETS at noon MISC) and 1 Each in the evening. SERTraline 2022-0 Yes [id number] 100mg Take 1 [facility] 100 mg 5-19 tablet by ity of tablet 00:00: mouth in [place] 00 the Medical morning. Branch SERTraline 2022-0 Yes [id number] 100mg Take 1 [facility] 100 mg 5-19 tablet by ity of tablet 00:00: mouth in [place] 00 the Medical morning. Branch SERTraline 2023-0 Yes [id number] 100mg Take 1 [facility] 100 mg 5-19 tablet by ity of tablet 00:00: mouth in [place] 00 the Medical morning. Branch SERTraline 2022- No [id number] 100mg Take 1 [facility] 100 mg 5-19 05-25 tablet by ity of tablet 00:00: 00:00 mouth in [place] 00 :00 the Medical morning. Branch SERTraline 2022-0 2022- No [id number] 100mg Take 1 [facility] 100 mg 5-19 05-25 tablet by ity of tablet 00:00: 00:00 mouth in [place] 00 :00 the Medical morning. Branch SERTraline 2022-2022- No [id number] 100mg Take 1 [facility] 100 mg 5-19 05-25 tablet by ity of tablet 00:00: 00:00 mouth in [place] 00 :00 the Medical morning. Branch SERTraline 2022- No [id number] 100mg Take 1 [facility] 100 mg 5-19 05-25 tablet by ity of tablet 00:00: 00:00 mouth in [place] 00 :00 the Medical morning. Branch blood sugar Yes [id number] Check U nivers diagnostic 5-18 blood ity of strip 00:00: sugar 2 [place] 00 times a Medical day. Branch E11.9. Brand per insurance. Uses ACCU-CHEK machine Lancets Yes [id number] Check Unive rs Misc 5-18 blood ity of 00:00: sugar 2 [place] 00 times a Medical day. Branch E11.9. Brand per insurance. amiodarone Yes [id number] 200mg Take 1 [facility] 200 mg 5-18 tablet by ity of tablet 00:00: mouth in [place] 00 the Medical morning. Branch apixaban 5 0 Yes 5mg Take 1 Unive rs mg tablet 5-18 tablet by ity o f 00:00: mouth in [place] 00 the Medical morning Branch and 1 tablet in the evening. Indication s: ATRIAL FIBRILLATI ON atorvastati Yes [id number] 40mg Take 1 [facility] n 40 mg 5-18 tablet by ity of tablet 00:00: mouth at [place] [address] bedtime. Medical Branch lisinopriL 2022- Yes [id number] 2.5mg Take 1 [facility] 2.5 mg 5-18 tablet by ity of tablet 00:00: mouth in [place] 00 the morning. Branch metoprolol 2022-0 Yes [id number] 25mg Take 1 U nivers tartrate 25 5-18 tablet by ity of mg tablet 00:00: mouth in [facility] s the morning Branch and 1 tablet in the evening. blood sugar 2022-0 Yes [id number] Check U nivers diagnostic 5-18 blood ity of strip 00:00: sugar 2 [place] 00 times a Medical day. Branch E11.9. Brand per insurance. Uses ACCU-CHEK machine Lancets 2022-0 Yes [id number] Check Unive rs Misc 5-18 blood ity of 00:00: sugar 2 [place] times a Medical day. Branch E11.9. Brand per insurance. amiodarone 2022-0 Yes [id number] 200mg Take 1 [facility] 200 mg 5-18 tablet by ity of tablet 00:00: mouth in [place] the morning. Branch apixaban 5 2022-0 Yes 5mg Take 1 Unive rs mg tablet 5-18 tablet by ity o f 00:00: mouth in [place] the morning Branch and 1 tablet in the evening. Indication s: ATRIAL FIBRILLATI ON atorvastati 2022-0 Yes [id number] 40mg Take 1 [facility] n 40 mg 5-18 tablet by ity of tablet 00:00: mouth at [place] [address] bedtime. Medical Branch lisinopriL 2022-0 Yes [id number] 2.5mg Take 1 [facility] 2.5 mg 5-18 tablet by ity of tablet 00:00: mouth in [place] the morning. Branch metoprolol 2022-0 Yes [id number] 25mg Take 1 U nivers tartrate 25 5-18 tablet by ity of mg tablet 00:00: mouth in [facility] 00 the morning Branch and 1 tablet in the evening. blood sugar 2022-0 Yes [id number] Check U nivers diagnostic 5-18 blood ity of strip 00:00: sugar 2 [place] 00 times a Medical day. Branch E11.9. Brand per insurance. Uses ACCU-CHEK machine Lancets 2022-0 Yes [id number] Check Unive rs Misc 5-18 blood ity of 00:00: sugar 2 [place] 00 times a Medical day. Branch E11.9. Brand per insurance. amiodarone 0 Yes [id number] 200mg Take 1 [facility] 200 mg 5-18 tablet by ity of tablet 00:00: mouth in [place] 00 the Medical morning. Branch apixaban 5 2022-0 Yes 5mg Take 1 Unive rs mg tablet 5-18 tablet by ity o f 00:00: mouth in [place] 00 the Medical morning Branch and 1 tablet in the evening. Indication s: ATRIAL FIBRILLATI ON atorvastati 2022-0 Yes [id number] 40mg Take 1 [facility] n 40 mg 5-18 tablet by ity of tablet 00:00: mouth at [place] [address] bedtime. Medical Branch lisinopriL 2022-0 Yes [id number] 2.5mg Take 1 [facility] 2.5 mg 5-18 tablet by ity of tablet 00:00: mouth in [place] 00 the morning. Branch metoprolol Yes [id number] 25mg Take 1 U nivers tartrate 25 5-18 tablet by ity of mg tablet 00:00: mouth in [facility] 00 the morning Branch and 1 tablet in the evening. blood sugar 0 Yes [id number] Check U nivers diagnostic 5-18 blood ity of strip 00:00: sugar 2 [place] 00 times a Medical day. Branch E11.9. Brand per insurance. Uses ACCU-CHEK machine Lancets Yes [id number] Check Unive rs Misc 5-18 blood ity of 00:00: sugar 2 [place] 00 times a Medical day. Branch E11.9. Brand per insurance. amiodarone 0 Yes [id number] 200mg Take 1 [facility] 200 mg 5-18 tablet by ity of tablet 00:00: mouth in [place] 00 the Medical morning. Branch apixaban 5 2022-0 Yes 5mg Take 1 Unive rs mg tablet 5-18 tablet by ity o f 00:00: mouth in [place] 00 the Medical morning Branch and 1 tablet in the evening. Indication s: ATRIAL FIBRILLATI ON atorvastati 2022-0 Yes [id number] 40mg Take 1 [facility] n 40 mg 5-18 tablet by ity of tablet 00:00: mouth at [place] [address] bedtime. Medical Branch lisinopriL 2022-0 Yes [id number] 2.5mg Take 1 [facility] 2.5 mg 5-18 tablet by ity of tablet 00:00: mouth in [place] 00 the Medical morning. Branch metoprolol 2022-0 Yes [id number] 25mg Take 1 U nivers tartrate 25 5-18 tablet by ity of mg tablet 00:00: mouth in [facility] s 00 the morning Branch and 1 tablet in the evening. blood sugar 2022-0 Yes [id number] Check U nivers diagnostic 5-18 blood ity of strip 00:00: sugar 2 [place] 00 times a Medical day. Branch E11.9. Brand per insurance. Uses ACCU-CHEK machine Lancets 2022-0 Yes [id number] Check Unive rs Misc 5-18 blood ity of 00:00: sugar 2 [place] 00 times a Medical day. Branch E11.9. Brand per insurance. amiodarone 0 Yes [id number] 200mg Take 1 [facility] 200 mg 5-18 tablet by ity of tablet 00:00: mouth in [place] 00 the morning. Branch apixaban 5 2022-0 Yes 5mg Take 1 Unive rs mg tablet 5-18 tablet by ity o f 00:00: mouth in [place] 00 the morning Branch and 1 tablet in the evening. Indication s: ATRIAL FIBRILLATI ON atorvastati 0 Yes [id number] 40mg Take 1 [facility] n 40 mg 5-18 tablet by ity of tablet 00:00: mouth at [place] 00 bedtime. Medical Branch lisinopriL 0 Yes [id number] 2.5mg Take 1 [facility] 2.5 mg 5-18 tablet by ity of tablet 00:00: mouth in [place] 00 the morning. Branch metoprolol 2022-0 Yes [id number] 25mg Take 1 U nivers tartrate 25 5-18 tablet by ity of mg tablet 00:00: mouth in [facility] 00 the morning Branch and 1 tablet in the evening. blood sugar 2022-0 Yes [id number] Check U nivers diagnostic 5-18 blood ity of strip 00:00: sugar 2 [place] 00 times a Medical day. Branch E11.9. Brand per insurance. Uses ACCU-CHEK machine Lancets 2022-0 Yes [id number] Check Unive rs Misc 5-18 blood ity of 00:00: sugar 2 [place] 00 times a Medical day. Branch E11.9. Brand per insurance. amiodarone 0 Yes [id number] 200mg Take 1 [facility] 200 mg 5-18 tablet by ity of tablet 00:00: mouth in [place] 00 the Medical morning. Branch apixaban 5 0 Yes 5mg Take 1 Unive rs mg tablet 5-18 tablet by ity o f 00:00: mouth in [place] 00 the Medical morning Branch and 1 tablet in the evening. Indication s: ATRIAL FIBRILLATI ON atorvastati 0 Yes [id number] 40mg Take 1 [facility] n 40 mg 5-18 tablet by ity of tablet 00:00: mouth at [place] [address] bedtime. Medical Branch lisinopriL Yes [id number] 2.5mg Take 1 [facility] 2.5 mg 5-18 tablet by ity of tablet 00:00: mouth in [place] 00 the Medical morning. Branch metoprolol Yes [id number] 25mg Take 1 U nivers tartrate 25 5-18 tablet by ity of mg tablet 00:00: mouth in [facility] 00 the Medical morning Branch and 1 tablet in the evening. blood sugar 0 Yes [id number] Check U nivers diagnostic 5-18 blood ity of strip 00:00: sugar 2 [place] 00 times a Medical day. Branch E11.9. Brand per insurance. Uses ACCU-CHEK machine Lancets Yes [id number] Check Unive rs Misc 5-18 blood ity of 00:00: sugar 2 [place] 00 times a Medical day. Branch E11.9. Brand per insurance. amiodarone Yes [id number] 200mg Take 1 [facility] 200 mg 5-18 tablet by ity of tablet 00:00: mouth in [place] 00 the Medical morning. Branch apixaban 5 0 Yes 5mg Take 1 Unive rs mg tablet 5-18 tablet by ity o f 00:00: mouth in [place] 00 the Medical morning Branch and 1 tablet in the evening. Indication s: ATRIAL FIBRILLATI ON atorvastati 2022-0 Yes [id number] 40mg Take 1 [facility] n 40 mg 5-18 tablet by ity of tablet 00:00: mouth at [place] [address] bedtime. Medical Branch lisinopriL 2022-0 Yes [id number] 2.5mg Take 1 [facility] 2.5 mg 5-18 tablet by ity of tablet 00:00: mouth in [place] 00 the Medical morning. Branch metoprolol 2022-0 Yes [id number] 25mg Take 1 U nivers tartrate 25 5-18 tablet by ity of mg tablet 00:00: mouth in [facility] s 00 the morning Branch and 1 tablet in the evening. blood sugar 2022-0 Yes [id number] Check U nivers diagnostic 5-18 blood ity of strip 00:00: sugar 2 [place] 00 times a Medical day. Branch E11.9. Brand per insurance. Uses ACCU-CHEK machine Lancets 2022-0 Yes [id number] Check Unive rs Misc 5-18 blood ity of 00:00: sugar 2 [place] 00 times a Medical day. Branch E11.9. Brand per insurance. amiodarone 2022-0 Yes [id number] 200mg Take 1 [facility] 200 mg 5-18 tablet by ity of tablet 00:00: mouth in [place] 00 the Medical morning. Branch apixaban 5 2022-0 Yes 5mg Take 1 Unive rs mg tablet 5-18 tablet by ity o f 00:00: mouth in [place] the Medical morning Branch and 1 tablet in the evening. Indication s: ATRIAL FIBRILLATI ON atorvastati 2022-0 Yes [id number] 40mg Take 1 [facility] n 40 mg 5-18 tablet by ity of tablet 00:00: mouth at [place] [address] bedtime. Medical Branch lisinopriL 2022-0 Yes [id number] 2.5mg Take 1 [facility] 2.5 mg 5-18 tablet by ity of tablet 00:00: mouth in [place] 00 the Medical morning. Branch metoprolol 2022-0 Yes [id number] 25mg Take 1 U nivers tartrate 25 5-18 tablet by ity of mg tablet 00:00: mouth in [facility] s 00 the Medical morning Branch and 1 tablet in the evening. Lancets 2022-0 Yes [id number] Check Unive rs Misc 5-18 blood ity of 00:00: sugar 2 [place] 00 times a Medical day. Branch E11.9. Brand per insurance. amiodarone 2022-0 Yes [id number] 200mg Take 1 [facility] 200 mg 5-18 tablet by ity of tablet 00:00: mouth in [place] 00 the Medical morning. Branch apixaban 5 2022-0 Yes 5mg Take 1 Unive rs mg tablet 5-18 tablet by ity o f 00:00: mouth in [place] 00 the Medical morning Branch and 1 tablet in the evening. Indication s: ATRIAL FIBRILLATI ON atorvastati 2022-0 Yes [id number] 40mg Take 1 [facility] n 40 mg 5-18 tablet by ity of tablet 00:00: mouth at [place] 00 bedtime. Medical Branch lisinopriL 2022-0 Yes [id number] 2.5mg Take 1 [facility] 2.5 mg 5-18 tablet by ity of tablet 00:00: mouth in [place] 00 the Medical morning. Branch metoprolol 2022-0 Yes [id number] 25mg Take 1 U nivers tartrate 25 5-18 tablet by ity of mg tablet 00:00: mouth in [facility] the Medical morning Branch and 1 tablet in the evening. Lancets 2022-0 Yes [id number] Check Unive rs Misc 5-18 blood ity of 00:00: sugar 2 [place] 00 times a Medical day. Branch E11.9. Brand per insurance. amiodarone 2022-0 Yes [id number] 200mg Take 1 [facility] 200 mg 5-18 tablet by ity of tablet 00:00: mouth in [place] 00 the Medical morning. Branch apixaban 5 2022-0 Yes 5mg Take 1 Unive rs mg tablet 5-18 tablet by ity o f 00:00: mouth in [place] 00 the Medical morning Branch and 1 tablet in the evening. Indication s: ATRIAL FIBRILLATI ON atorvastati 2022-0 Yes [id number] 40mg Take 1 [facility] n 40 mg 5-18 tablet by ity of tablet 00:00: mouth at [place] 00 bedtime. Medical Branch lisinopriL 2022-0 Yes [id number] 2.5mg Take 1 [facility] 2.5 mg 5-18 tablet by ity of tablet 00:00: mouth in [place] 00 the Medical morning. Branch metoprolol 2022-0 Yes [id number] 25mg Take 1 U nivers tartrate 25 5-18 tablet by ity of mg tablet 00:00: mouth in [facility] 00 the Medical morning Branch and 1 tablet in the evening. Lancets 2022-0 Yes [id number] Check Unive rs Misc 5-18 blood ity of 00:00: sugar 2 [place] 00 times a Medical day. Branch E11.9. Brand per insurance. amiodarone 2022-0 Yes [id number] 200mg Take 1 [facility] 200 mg 5-18 tablet by ity of tablet 00:00: mouth in [place] 00 the Medical morning. Branch apixaban 5 2022-0 Yes 5mg Take 1 Unive rs mg tablet 5-18 tablet by ity o f 00:00: mouth in [place] 00 the Medical morning Branch and 1 tablet in the evening. Indication s: ATRIAL FIBRILLATI ON atorvastati 2022-0 Yes [id number] 40mg Take 1 [facility] n 40 mg 5-18 tablet by ity of tablet 00:00: mouth at [place] 00 bedtime. Medical Branch lisinopriL 2022-0 Yes [id number] 2.5mg Take 1 [facility] 2.5 mg 5-18 tablet by ity of tablet 00:00: mouth in [place] 00 the Medical morning. Branch metoprolol 2022-0 Yes [id number] 25mg Take 1 U nivers tartrate 25 5-18 tablet by ity of mg tablet 00:00: mouth in [facility] 00 the Medical morning Branch and 1 tablet in the evening. Lancets 2022-0 Yes [id number] Check Unive rs Misc 5-18 blood ity of 00:00: sugar 2 [place] 00 times a Medical day. Branch E11.9. Brand per insurance. amiodarone 2022-0 Yes [id number] 200mg Take 1 [facility] 200 mg 5-18 tablet by ity of tablet 00:00: mouth in [place] 00 the Medical morning. Branch apixaban 5 2022-0 Yes 5mg Take 1 Unive rs mg tablet 5-18 tablet by ity o f 00:00: mouth in [place] 00 the Medical morning Branch and 1 tablet in the evening. Indication s: ATRIAL FIBRILLATI ON atorvastati 2022-0 Yes [id number] 40mg Take 1 [facility] n 40 mg 5-18 tablet by ity of tablet 00:00: mouth at [place] [address] bedtime. Medical Branch lisinopriL 2022-0 Yes [id number] 2.5mg Take 1 [facility] 2.5 mg 5-18 tablet by ity of tablet 00:00: mouth in [place] 00 the Medical morning. Branch metoprolol 2022-0 Yes [id number] 25mg Take 1 U nivers tartrate 25 5-18 tablet by ity of mg tablet 00:00: mouth in [place] 00 the Medical morning Branch and 1 tablet in the evening. Lancets 0 Yes [id number] Check Unive rs Misc 5-18 blood ity of 00:00: sugar 2 [place] 00 times a Medical day. Branch E11.9. Brand per insurance. atorvastati 2022-0 Yes [id number] 40mg Take 1 [facility] n 40 mg 5-18 tablet by ity of tablet 00:00: mouth at [place] 00 bedtime. Medical Branch lisinopriL 2022-0 Yes [id number] 2.5mg Take 1 [facility] 2.5 mg 5-18 tablet by ity of tablet 00:00: mouth in [place] 00 the Medical morning. Branch metoprolol 2022-0 Yes [id number] 25mg Take 1 U nivers tartrate 25 5-18 tablet by ity of mg tablet 00:00: mouth in [place] 00 the Medical morning Branch and 1 tablet in the evening. Lancets 0 Yes [id number] Check Unive rs Misc 5-18 blood ity of 00:00: sugar 2 [place] 00 times a Medical day. Branch E11.9. Brand per insurance. atorvastati 2022-0 Yes [id number] 40mg Take 1 [facility] n 40 mg 5-18 tablet by ity of tablet 00:00: mouth at [place] 00 bedtime. Medical Branch lisinopriL 2022-0 Yes [id number] 2.5mg Take 1 [facility] 2.5 mg 5-18 tablet by ity of tablet 00:00: mouth in [place] 00 the Medical morning. Branch metoprolol 2022-0 Yes [id number] 25mg Take 1 U nivers tartrate 25 5-18 tablet by ity of mg tablet 00:00: mouth [place] 00 the Medical morning Branch and 1 tablet in the evening. Lancets 0 Yes [id number] Check Unive rs Misc 5-18 blood ity of 00:00: sugar 2 [place] 00 times a Medical day. Branch E11.9. Brand per insurance. atorvastati 2022-0 Yes [id number] 40mg Take 1 [facility] n 40 mg 5-18 tablet by ity of tablet 00:00: mouth at [place] 00 bedtime. Medical Branch lisinopriL 2022-0 Yes [id number] 2.5mg Take 1 [facility] 2.5 mg 5-18 tablet by ity of tablet 00:00: mouth in [place] 00 the Medical morning. Branch metoprolol 2022-0 Yes [id number] 25mg Take 1 U nivers tartrate 25 5-18 tablet by ity of mg tablet 00:00: mouth [place] 00 the Medical morning Branch and 1 tablet in the evening. Lancets 2022-0 Yes [id number] Check Unive rs Misc 5-18 blood ity of 00:00: sugar 2 [place] 00 times a Medical day. Branch E11.9. Brand per insurance. atorvastati 2022-0 Yes [id number] 40mg Take 1 [facility] n 40 mg 5-18 tablet by ity of tablet 00:00: mouth at [place] 00 bedtime. Medical Branch lisinopriL 2022-0 Yes [id number] 2.5mg Take 1 [facility] 2.5 mg 5-18 tablet by ity of tablet 00:00: mouth in [place] 00 the Medical morning. Branch metoprolol 2022-0 Yes [id number] 25mg Take 1 U nivers tartrate 25 5-18 tablet by ity of mg tablet 00:00: mouth [place] 00 the Medical morning Branch and 1 tablet in the evening. Lancets 2022-0 Yes [id number] Check Unive rs Misc 5-18 blood ity of 00:00: sugar 2 [place] 00 times a Medical day. Branch E11.9. Brand per insurance. atorvastati 2022-0 Yes [id number] 40mg Take 1 [facility] n 40 mg 5-18 tablet by ity of tablet 00:00: mouth at [place] 00 bedtime. Medical Branch lisinopriL 2022-0 Yes [id number] 2.5mg Take 1 [facility] 2.5 mg 5-18 tablet by ity of tablet 00:00: mouth in [place] 00 the Medical morning. Branch metoprolol 2022-0 Yes [id number] 25mg Take 1 U nivers tartrate 25 5-18 tablet by ity of mg tablet 00:00: mouth [place] 00 the Medical morning Branch and 1 tablet in the evening. blood sugar 2022-0 Yes [id number] Check U nivers diagnostic 5-18 blood ity of strip 00:00: sugar 2 [place] 00 times a Medical day. Branch E11.9. Brand per insurance. Uses ACCU-CHEK machine Lancets 2023-0 Yes [id number] Check Unive rs Misc 5-18 blood ity of 00:00: sugar 2 [place] 00 times a Medical day. Branch E11.9. Brand per insurance. amiodarone Yes [id number] 200mg Take 1 [facility] 200 mg 5-18 tablet by ity of tablet 00:00: mouth in [place] 00 the Medical morning. Branch apixaban 5 Yes 5mg Take 1 Unive rs mg tablet 5-18 tablet by ity o f 00:00: mouth in [place] 00 the Medical morning Branch and 1 tablet in the evening. Indication s: ATRIAL FIBRILLATI ON atorvastati Yes [id number] 40mg Take 1 [facility] n 40 mg 5-18 tablet by ity of tablet 00:00: mouth at [place] [address] bedtime. Medical Branch divalproex Yes [id number] 250mg Take 1 [facility] ER 250 mg 5-18 tablet by ity o f 24 hr 00:00: mouth [place] tablet 00 every 24 Medical (twenty- Branch ur) hours. gabapentin Yes [id number] 300mg Take 1 [facility] 300 mg 5-18 capsule by ity of capsule 00:00: mouth in [place] 00 the morning Branch and 1 capsule at noon and 1 capsule in the evening. lisinopriL Yes [id number] 2.5mg Take 1 [facility] 2.5 mg 5-18 tablet by ity of tablet 00:00: mouth in [place] 00 the morning. Branch metoprolol Yes [id number] 25mg Take 1 U nivers tartrate 25 5-18 tablet by ity of mg tablet 00:00: mouth in [facility] 00 the Medical morning Branch and 1 tablet in the evening. blood sugar Yes [id number] Check U nivers diagnostic 5-18 blood ity of strip 00:00: sugar 2 [place] 00 times a Medical day. Branch E11.9. Brand per insurance. Uses ACCU-CHEK machine Lancets Yes [id number] Check Unive rs Misc 5-18 blood ity of 00:00: sugar 2 [place] 00 times a Medical day. Branch E11.9. Brand per insurance. amiodarone Yes [id number] 200mg Take 1 [facility] 200 mg 5-18 tablet by ity of tablet 00:00: mouth in [place] 00 the morning. Branch apixaban 5 0 Yes 5mg Take 1 Unive rs mg tablet 5-18 tablet by ity o f 00:00: mouth in [place] 00 the morning Branch and 1 tablet in the evening. Indication s: ATRIAL FIBRILLATI ON atorvastati 2022-0 Yes [id number] 40mg Take 1 [facility] n 40 mg 5-18 tablet by ity of tablet 00:00: mouth at [place] [address] bedtime. Medical Branch divalproex Yes [id number] 250mg Take 1 [facility] ER 250 mg 5-18 tablet by ity o f 24 hr 00:00: mouth [place] tablet 00 every 24 Medical (twenty- Branch ur) hours. gabapentin Yes [id number] 300mg Take 1 [facility] 300 mg 5-18 capsule by ity of capsule 00:00: mouth in [place] 00 the morning Branch and 1 capsule at noon and 1 capsule in the evening. lisinopriL Yes [id number] 2.5mg Take 1 [facility] 2.5 mg 5-18 tablet by ity of tablet 00:00: mouth in [place] the morning. Branch metoprolol Yes [id number] 25mg Take 1 U nivers tartrate 25 5-18 tablet by ity of mg tablet 00:00: mouth in [facility] the morning Branch and 1 tablet in the evening. blood sugar 0 Yes [id number] Check U nivers diagnostic 5-18 blood ity of strip 00:00: sugar 2 [place] 00 times a Medical day. Branch E11.9. Brand per insurance. Uses ACCU-CHEK machine Lancets Yes [id number] Check Unive rs Misc 5-18 blood ity of 00:00: sugar 2 [place] 00 times a Medical day. Branch E11.9. Brand per insurance. amiodarone Yes [id number] 200mg Take 1 [facility] 200 mg 5-18 tablet by ity of tablet 00:00: mouth in [place] 00 the Medical morning. Branch apixaban 5 0 Yes 5mg Take 1 Unive rs mg tablet 5-18 tablet by ity o f 00:00: mouth in [place] the morning Branch and 1 tablet in the evening. Indication s: ATRIAL FIBRILLATI ON atorvastati Yes [id number] 40mg Take 1 [facility] n 40 mg 5-18 tablet by ity of tablet 00:00: mouth at [place] 00 bedtime. Medical Branch divalproex Yes [id number] 250mg Take 1 [facility] ER 250 mg 5-18 tablet by ity o f 24 hr 00:00: mouth [place] tablet 00 every 24 Medical (twenty-fo Branch ur) hours. gabapentin Yes [id number] 300mg Take 1 [facility] 300 mg 5-18 capsule by ity of capsule 00:00: mouth in [place] 00 the morning Branch and 1 capsule at noon and 1 capsule in the evening. lisinopriL Yes [id number] 2.5mg Take 1 [facility] 2.5 mg 5-18 tablet by ity of tablet 00:00: mouth in [place] 00 the morning. Branch metoprolol Yes [id number] 25mg Take 1 U nivers tartrate 25 5-18 tablet by ity of mg tablet 00:00: mouth in [facility] 00 the morning Branch and 1 tablet in the evening. blood sugar Yes [id number] Check U nivers diagnostic 5-18 blood ity of strip 00:00: sugar 2 [place] 00 times a Medical day. Branch E11.9. Brand per insurance. Uses ACCU-CHEK machine Lancets Yes [id number] Check Unive rs Misc 5-18 blood ity of 00:00: sugar 2 [place] 00 times a Medical day. Branch E11.9. Brand per insurance. amiodarone Yes [id number] 200mg Take 1 [facility] 200 mg 5-18 tablet by ity of tablet 00:00: mouth in [place] 00 the Medical morning. Branch apixaban 5 Yes 5mg Take 1 Unive rs mg tablet 5-18 tablet by ity o f 00:00: mouth in [place] the morning Branch and 1 tablet in the evening. Indication s: ATRIAL FIBRILLATI ON atorvastati Yes [id number] 40mg Take 1 [facility] n 40 mg 5-18 tablet by ity of tablet 00:00: mouth at [place] 00 bedtime. Medical Branch divalproex Yes [id number] 250mg Take 1 [facility] ER 250 mg 5-18 tablet by ity o f 24 hr 00:00: mouth [place] tablet 00 every 24 Medical (- Branch ur) hours. gabapentin 2022-0 Yes [id number] 300mg Take 1 [facility] 300 mg 5-18 capsule by ity of capsule 00:00: mouth in [place] 00 the Medical morning Branch and 1 capsule at noon and 1 capsule in the evening. lisinopriL 2022-0 Yes [id number] 2.5mg Take 1 [facility] 2.5 mg 5-18 tablet by ity of tablet 00:00: mouth in [place] 00 the Medical morning. Branch metoprolol 2022-0 Yes [id number] 25mg Take 1 U nivers tartrate 25 5-18 tablet by ity of mg tablet 00:00: mouth in [facility] 00 the Medical morning Branch and 1 tablet in the evening. blood sugar 2022-0 Yes [id number] Check U nivers diagnostic 5-18 blood ity of strip 00:00: sugar 2 [place] times a Medical day. Branch E11.9. Brand per insurance. Uses ACCU-CHEK machine Lancets Yes [id number] Check Unive rs Misc 5-18 blood ity of 00:00: sugar 2 [place] times a Medical day. Branch E11.9. Brand per insurance. amiodarone 2022-0 Yes [id number] 200mg Take 1 [facility] 200 mg 5-18 tablet by ity of tablet 00:00: mouth in [place] 00 the Medical morning. Branch apixaban 5 2022-0 Yes 5mg Take 1 Unive rs mg tablet 5-18 tablet by ity o f 00:00: mouth in [place] the Medical morning Branch and 1 tablet in the evening. Indication s: ATRIAL FIBRILLATI ON atorvastati 2022-0 Yes [id number] 40mg Take 1 [facility] n 40 mg 5-18 tablet by ity of tablet 00:00: mouth at [place] 00 bedtime. Medical Branch divalproex 2022-0 Yes [id number] 250mg Take 1 [facility] ER 250 mg 5-18 tablet by ity o f 24 hr 00:00: mouth [place] tablet 00 every 24 Medical (twenty-fo Branch ur) hours. gabapentin 2022-0 Yes [id number] 300mg Take 1 [facility] 300 mg 5-18 capsule by ity of capsule 00:00: mouth in [place] 00 the morning Branch and 1 capsule at noon and 1 capsule in the evening. lisinopriL 2022-0 Yes [id number] 2.5mg Take 1 [facility] 2.5 mg 5-18 tablet by ity of tablet 00:00: mouth in [place] the morning. Branch metoprolol 2022-0 Yes [id number] 25mg Take 1 U nivers tartrate 25 5-18 tablet by ity of mg tablet 00:00: mouth in [facility] the morning Branch and 1 tablet in the evening. blood sugar 2022-0 Yes [id number] Check U nivers diagnostic 5-18 blood ity of strip 00:00: sugar 2 [place] times a Medical day. Branch E11.9. Brand per insurance. Uses ACCU-CHEK machine Lancets 2022-0 Yes [id number] Check Unive rs Misc 5-18 blood ity of 00:00: sugar 2 [place] times a Medical day. Branch E11.9. Brand per insurance. amiodarone 2022-0 Yes [id number] 200mg Take 1 [facility] 200 mg 5-18 tablet by ity of tablet 00:00: mouth in [place] the morning. Branch apixaban 5 2022-0 Yes 5mg Take 1 Unive rs mg tablet 5-18 tablet by ity o f 00:00: mouth in [place] the morning Branch and 1 tablet in the evening. Indication s: ATRIAL FIBRILLATI ON atorvastati 2022-0 Yes [id number] 40mg Take 1 [facility] n 40 mg 5-18 tablet by ity of tablet 00:00: mouth at [place] [address] bedtime. Medical Branch lisinopriL 2022-0 Yes [id number] 2.5mg Take 1 [facility] 2.5 mg 5-18 tablet by ity of tablet 00:00: mouth in [place] 00 the morning. Branch metoprolol 2022-0 Yes [id number] 25mg Take 1 U nivers tartrate 25 5-18 tablet by ity of mg tablet 00:00: mouth in [facility] the morning Branch and 1 tablet in the evening. blood sugar 2022-0 Yes [id number] Check U nivers diagnostic 5-18 blood ity of strip 00:00: sugar 2 [place] 00 times a Medical day. Branch E11.9. Brand per insurance. Uses ACCU-CHEK machine Lancets Yes [id number] Check Unive rs Misc 5-18 blood ity of 00:00: sugar 2 [place] 00 times a Medical day. Branch E11.9. Brand per insurance. amiodarone 0 Yes [id number] 200mg Take 1 [facility] 200 mg 5-18 tablet by ity of tablet 00:00: mouth in [place] 00 the Medical morning. Branch apixaban 5 2022-0 Yes 5mg Take 1 Unive rs mg tablet 5-18 tablet by ity o f 00:00: mouth in [place] 00 the Medical morning Branch and 1 tablet in the evening. Indication s: ATRIAL FIBRILLATI ON atorvastati Yes [id number] 40mg Take 1 [facility] n 40 mg 5-18 tablet by ity of tablet 00:00: mouth at [place] 00 bedtime. Medical Branch lisinopriL Yes [id number] 2.5mg Take 1 [facility] 2.5 mg 5-18 tablet by ity of tablet 00:00: mouth in [place] 00 the Medical morning. Branch metoprolol Yes [id number] 25mg Take 1 U nivers tartrate 25 5-18 tablet by ity of mg tablet 00:00: mouth in [facility] 00 the Medical morning Branch and 1 tablet in the evening. blood sugar 0 Yes [id number] Check U nivers diagnostic 5-18 blood ity of strip 00:00: sugar 2 [place] 00 times a Medical day. Branch E11.9. Brand per insurance. Uses ACCU-CHEK machine Lancets 0 Yes [id number] Check Unive rs Misc 5-18 blood ity of 00:00: sugar 2 [place] 00 times a Medical day. Branch E11.9. Brand per insurance. amiodarone Yes [id number] 200mg Take 1 [facility] 200 mg 5-18 tablet by ity of tablet 00:00: mouth in [place] 00 the Medical morning. Branch apixaban 5 0 Yes 5mg Take 1 Unive rs mg tablet 5-18 tablet by ity o f 00:00: mouth in [place] 00 the Medical morning Branch and 1 tablet in the evening. Indication s: ATRIAL FIBRILLATI ON atorvastati 2022-0 Yes [id number] 40mg Take 1 [facility] n 40 mg 5-18 tablet by ity of tablet 00:00: mouth at [place] [address] bedtime. Medical Branch lisinopriL 2022-0 Yes [id number] 2.5mg Take 1 [facility] 2.5 mg 5-18 tablet by ity of tablet 00:00: mouth in [place] 00 the morning. Branch metoprolol 2022-0 Yes [id number] 25mg Take 1 U nivers tartrate 25 5-18 tablet by ity of mg tablet 00:00: mouth in [facility] the morning Branch and 1 tablet in the evening. blood sugar 2022-0 Yes [id number] Check U nivers diagnostic 5-18 blood ity of strip 00:00: sugar 2 [place] 00 times a Medical day. Branch E11.9. Brand per insurance. Uses ACCU-CHEK machine Lancets 2022-0 Yes [id number] Check Unive rs Misc 5-18 blood ity of 00:00: sugar 2 [place] 00 times a Medical day. Branch E11.9. Brand per insurance. amiodarone 2022-0 Yes [id number] 200mg Take 1 [facility] 200 mg 5-18 tablet by ity of tablet 00:00: mouth in [place] 00 the morning. Branch apixaban 5 2022-0 Yes 5mg Take 1 Unive rs mg tablet 5-18 tablet by ity o f 00:00: mouth in [place] the morning Branch and 1 tablet in the evening. Indication s: ATRIAL FIBRILLATI ON atorvastati 2022-0 Yes [id number] 40mg Take 1 [facility] n 40 mg 5-18 tablet by ity of tablet 00:00: mouth at [place] [address] bedtime. Medical Branch lisinopriL 2022-0 Yes [id number] 2.5mg Take 1 [facility] 2.5 mg 5-18 tablet by ity of tablet 00:00: mouth in [place] 00 the morning. Branch metoprolol 2022-0 Yes [id number] 25mg Take 1 U nivers tartrate 25 5-18 tablet by ity of mg tablet 00:00: mouth in [facility] 00 the morning Branch and 1 tablet in the evening. blood sugar 2022-0 Yes [id number] Check U nivers diagnostic 5-18 blood ity of strip 00:00: sugar 2 [place] 00 times a Medical day. Branch E11.9. Brand per insurance. Uses ACCU-CHEK machine Lancets 2023-0 Yes [id number] Check Unive rs Misc 5-18 blood ity of 00:00: sugar 2 [place] 00 times a Medical day. Branch E11.9. Brand per insurance. amiodarone 2022-0 Yes [id number] 200mg Take 1 [facility] 200 mg 5-18 tablet by ity of tablet 00:00: mouth in [place] 00 the Medical morning. Branch apixaban 5 2022-0 Yes 5mg Take 1 Unive rs mg tablet 5-18 tablet by ity o f 00:00: mouth in [place] 00 the Medical morning Branch and 1 tablet in the evening. Indication s: ATRIAL FIBRILLATI ON atorvastati Yes [id number] 40mg Take 1 [facility] n 40 mg 5-18 tablet by ity of tablet 00:00: mouth at [place] [address] bedtime. Medical Branch lisinopriL Yes [id number] 2.5mg Take 1 [facility] 2.5 mg 5-18 tablet by ity of tablet 00:00: mouth in [place] 00 the Medical morning. Branch metoprolol Yes [id number] 25mg Take 1 U nivers tartrate 25 5-18 tablet by ity of mg tablet 00:00: mouth in [facility] 00 the Medical morning Branch and 1 tablet in the evening. blood sugar 0 Yes [id number] Check U nivers diagnostic 5-18 blood ity of strip 00:00: sugar 2 [place] 00 times a Medical day. Branch E11.9. Brand per insurance. Uses ACCU-CHEK machine Lancets 0 Yes [id number] Check Unive rs Misc 5-18 blood ity of 00:00: sugar 2 [place] 00 times a Medical day. Branch E11.9. Brand per insurance. amiodarone 0 Yes [id number] 200mg Take 1 [facility] 200 mg 5-18 tablet by ity of tablet 00:00: mouth in [place] 00 the Medical morning. Branch apixaban 5 2022-0 Yes 5mg Take 1 Unive rs mg tablet 5-18 tablet by ity o f 00:00: mouth in [place] 00 the Medical morning Branch and 1 tablet in the evening. Indication s: ATRIAL FIBRILLATI ON atorvastati 2022-0 Yes [id number] 40mg Take 1 [facility] n 40 mg 5-18 tablet by ity of tablet 00:00: mouth at [place] [address] bedtime. Medical Branch lisinopriL 0 Yes [id number] 2.5mg Take 1 [facility] 2.5 mg 5-18 tablet by ity of tablet 00:00: mouth in [place] 00 the Medical morning. Branch metoprolol 0 Yes [id number] 25mg Take 1 U nivers tartrate 25 5-18 tablet by ity of mg tablet 00:00: mouth in [facility] the morning Branch and 1 tablet in the evening. blood sugar 0 Yes [id number] Check U nivers diagnostic 5-18 blood ity of strip 00:00: sugar 2 [place] 00 times a Medical day. Branch E11.9. Brand per insurance. Uses ACCU-CHEK machine Lancets Yes [id number] Check Unive rs Misc 5-18 blood ity of 00:00: sugar 2 [place] 00 times a Medical day. Branch E11.9. Brand per insurance. amiodarone Yes [id number] 200mg Take 1 [facility] 200 mg 5-18 tablet by ity of tablet 00:00: mouth in [place] 00 the Medical morning. Branch apixaban 5 0 Yes 5mg Take 1 Unive rs mg tablet 5-18 tablet by ity o f 00:00: mouth in [place] the morning Branch and 1 tablet in the evening. Indication s: ATRIAL FIBRILLATI ON atorvastati 0 Yes [id number] 40mg Take 1 [facility] n 40 mg 5-18 tablet by ity of tablet 00:00: mouth at [place] [address] bedtime. Medical Branch lisinopriL 0 Yes [id number] 2.5mg Take 1 [facility] 2.5 mg 5-18 tablet by ity of tablet 00:00: mouth in [place] 00 the Medical morning. Branch metoprolol 2022-0 Yes [id number] 25mg Take 1 U nivers tartrate 25 5-18 tablet by ity of mg tablet 00:00: mouth in [facility] 00 the morning Branch and 1 tablet in the evening. amiodarone 2022-0 2022- No [id number] 200mg Take 1 [facility] 200 mg 5-18 07-19 tablet by ity of tablet 00:00: 00:00 mouth in [place] 00 :00 the Medical morning. Branch apixaban 5 2022- No 5mg Take 1 Univ ers mg tablet 09-05- tablet by ity of 00:00: 00:00 mouth in [place] 00 :00 the Medical morning Branch and 1 tablet in the evening. Indication s: ATRIAL FIBRILLATI ON amiodarone 2022- No [id number] 200mg Take 1 [facility] 200 mg 09-05-19 tablet by ity of tablet 00:00: 00:00 mouth in [place] 00 :00 the Medical morning. Branch apixaban 5 2022- No 5mg Take 1 Univ ers mg tablet 09-05- tablet by ity of 00:00: 00:00 mouth in [place] 00 :00 the Medical morning Branch and 1 tablet in the evening. Indication s: ATRIAL FIBRILLATI ON amiodarone 2022- No [id number] 200mg Take 1 [facility] 200 mg 09-05- tablet by ity of tablet 00:00: 00:00 mouth in [place] 00 :00 the Medical morning. Branch apixaban 5 2022- No 5mg Take 1 Univ ers mg tablet 09-05- tablet by ity of 00:00: 00:00 mouth in [place] 00 :00 the Medical morning Branch and 1 tablet in the evening. Indication s: ATRIAL FIBRILLATI ON amiodarone 2022- No [id number] 200mg Take 1 [facility] 200 mg 09-05- tablet by ity of tablet 00:00: 00:00 mouth in [place] 00 :00 the Medical morning. Branch apixaban 5 2022- No 5mg Take 1 Univ ers mg tablet 09-05- tablet by ity of 00:00: 00:00 mouth in [place] 00 :00 the Medical morning Branch and 1 tablet in the evening. Indication s: ATRIAL FIBRILLATI ON blood sugar 2022- No [id number] Check [facility] diagnostic 09-05 blood ity of strip 00:00: 00:00 sugar 2 [place] 00 :00 times a Medical day. Branch E11.9. Brand per insurance. Uses ACCU-CHEK machine divalproex 2022- No [id number] 250mg Take 1 [facility] ER 250 mg 09-05 05-25 tablet by ity of 24 hr 00:00: 00:00 mouth [place] tablet 00 :00 every 24 Medical ([facility] Branch ur) hours. gabapentin 2022-0 2022- No [id number] 300mg Take 1 [facility] 300 mg 5-18 05-25 capsule by ity of capsule 00:00: 00:00 mouth in [place] 00 :00 the Medical morning Branch and 1 capsule at noon and 1 capsule in the evening. divalproex 2022-0 2022- No [id number] 250mg Take 1 [facility] ER 250 mg 5-18 05-25 tablet by ity of 24 hr 00:00: 00:00 mouth [place] tablet 00 :00 every 24 Medical ([facility] Branch ur) hours. gabapentin 2022-0 2022- No [id number] 300mg Take 1 [facility] 300 mg 5-18 05-25 capsule by ity of capsule 00:00: 00:00 mouth in [place] 00 :00 the Medical morning Branch and 1 capsule at noon and 1 capsule in the evening. divalproex 2022-2022- No [id number] 250mg Take 1 [facility] ER 250 mg 5-18 05-25 tablet by ity of 24 hr 00:00: 00:00 mouth [place] tablet 00 :00 every 24 Medical ([facility] Branch ur) hours. gabapentin 2022-0 2022- No [id number] 300mg Take 1 [facility] 300 mg 5-18 05-25 capsule by ity of capsule 00:00: 00:00 mouth in [place] 00 :00 the Medical morning Branch and 1 capsule at noon and 1 capsule in the evening. divalproex 2022-2022- No [id number] 250mg Take 1 [facility] ER 250 mg 5-18 05-25 tablet by ity of 24 hr 00:00: 00:00 mouth [place] tablet 00 :00 every 24 Medical ([facility] Branch ur) hours. gabapentin 2022-0 2022- No [id number] 300mg Take 1 [facility] 300 mg 5-18 05-25 capsule by ity of capsule 00:00: 00:00 mouth in [place] 00 :00 the Medical morning Branch and 1 capsule at noon and 1 capsule in the evening. calcium 2022-2022- No 500mg 500 mg, Unive rs carbonate 4-26 04-26 Oral, ity of (OSCAL-500) 08:30: 20:29 ONCE, [...] dose, On 08/14/22 at 0030, STAT divalproex 2023-0 Yes [id number] 250mg Take 1 [facility] ER 250 mg 4-26 tablet by ity o f 24 hr 00:00: mouth [place] tablet 00 every 24 Medical (twenty-fo Branch ur) hours. divalproex 2023-0 Yes [id number] 250mg Take 1 [facility] ER 250 mg 4-26 tablet by ity o f 24 hr 00:00: mouth [place] tablet 00 every 24 Medical (twenty-fo Branch ur) hours. divalproex 2023-0 Yes [id number] 250mg Take 1 [facility] ER 250 mg 4-26 tablet by ity o f 24 hr 00:00: mouth [place] tablet 00 every 24 Medical (twenty-fo Branch ur) hours. divalproex 2023-0 Yes [id number] 250mg Take 1 [facility] ER 250 mg 4-26 tablet by ity o f 24 hr 00:00: mouth [place] tablet 00 every 24 Medical (twenty-fo Branch ur) hours. divalproex 2023-0 Yes [id number] 250mg Take 1 [facility] ER 250 mg 4-26 tablet by ity o f 24 hr 00:00: mouth [place] tablet 00 every 24 Medical (twenty-fo Branch ur) hours. divalproex 2023-0 Yes [id number] 250mg Take 1 [facility] ER 250 mg 4-26 tablet by ity o f 24 hr 00:00: mouth [place] tablet 00 every 24 Medical (twenty-fo Branch ur) hours. divalproex 2023-0 Yes [id number] 250mg Take 1 [facility] ER 250 mg 4-26 tablet by ity o f 24 hr 00:00: mouth [place] tablet 00 every 24 Medical (twenty-fo Branch ur) hours. divalproex 2023-0 Yes [id number] 250mg Take 1 [facility] ER 250 mg 4-26 tablet by ity o f 24 hr 00:00: mouth [place] tablet 00 every 24 Medical (twenty-fo Branch ur) hours. divalproex 2023-0 Yes [id number] 250mg Take 1 [facility] ER 250 mg 4-26 tablet by ity o f 24 hr 00:00: mouth [place] tablet 00 every 24 Medical (twenty-fo Branch ur) hours. divalproex 2023-0 Yes [id number] 250mg Take 1 [facility] ER 250 mg 4-26 tablet by ity o f 24 hr 00:00: mouth [place] tablet 00 every 24 Medical (twenty-fo Branch ur) hours. divalproex 2023-0 Yes [id number] 250mg Take 1 [facility] ER 250 mg 4-26 tablet by ity o f 24 hr 00:00: mouth [place] tablet 00 every 24 Medical (twenty-fo Branch ur) hours. divalproex 2023-0 Yes [id number] 250mg Take 1 [facility] ER 250 mg 4-26 tablet by ity o f 24 hr 00:00: mouth [place] tablet 00 every 24 Medical (twenty-fo Branch ur) hours. divalproex 2023-0 2023- No [id number] 250mg Take 1 [facility] ER 250 mg 4-26 05-18 tablet by ity of 24 hr 00:00: 00:00 mouth [place] tablet 00 :00 every 24 Medical (twenty-fo Branch ur) hours. lancing 2022-0 Yes 1{each} Take 1 Unive rs device/lanc 4-17 Each in ity o ets 14:20: the [place] (ACCU-CHEK 29 morning Medica l SOFT DEV and 1 Each Branc h LANCETS at noon [facility] [place] and 1 Each in the evening. lancing 2022-0 Yes 1{each} Take 1 Unive rs device/lanc 4-17 Each in ity o ets 14:20: the [place] (ACCU-CHEK 29 morning Medica l SOFT DEV [...] 1 [facility]: the [place] (ACCU-CHEK 29 morning Medica l SOFT DEV and 1 Each Branc h LANCETS at noon MISC) and 1 Each in the evening. lancing Yes 1{each} Take 1 Unive rs device/lanc 4-17 Each in [facility] ets 14:20: the [place] (ACCU-CHEK 29 morning Medica l SOFT DEV and 1 Each Branc h LANCETS at noon MISC) and 1 Each in the evening. lancing Yes 1{each} Take 1 [facility] 4-[facility] 14:20: the [place] (ACCU-CHEK 29 morning Medica l SOFT DEV and 1 Each Branc h LANCETS at noon MISC) and 1 Each in the evening. lancing Yes 1{each} Take 1 Unive rs device/lanc 4-17 Each in [facility] ets 14:20: the [place] (ACCU-CHEK 29 morning Medica l SOFT DEV and 1 Each Branc h LANCETS at noon MISC) and 1 Each in the evening. lancing Yes 1{each} Take 1 [facility] 4-[facility]:20: the [place] (ACCU-CHEK 29 morning Medica l SOFT DEV and 1 Each Branc h LANCETS at noon MISC) and 1 Each in the evening. lancing Yes 1{each} Take 1 Unive rs device/lanc 4-17 Each in [facility] ets 14:20: the [place] (ACCU-CHEK 29 morning Medica l SOFT DEV and 1 Each Branc h LANCETS at noon MISC) and 1 Each in the evening. lancing 2022- Yes 1{each} Take 1 Unive rs device/lanc 4-17 Each in ity [facility] ets 14:20: the [place] (ACCU-CHEK 29 morning Medica l SOFT DEV and 1 Each Branc h LANCETS at noon MISC) and 1 Each in the evening. lancing 0 Yes 1{each} Take 1 Unive rs device/lanc 4-17 Each in [facility] ets 14:20: the [place] (ACCU-CHEK 29 morning Medica l SOFT DEV and 1 Each Branc h LANCETS at noon MISC) and 1 Each in the evening. lancing 2022-0 Yes 1{each} Take 1 Unive rs device/lanc 4-17 Each in [facility] ets 14:20: the [place] (ACCU-CHEK 29 morning Medica l SOFT DEV and 1 Each Branc h LANCETS at noon MISC) and 1 Each in the evening. lancing 2022- Yes 1{each} Take 1 Unive rs device/lanc 4-17 Each in [facility] ets 14:20: the [place] (ACCU-CHEK 29 morning Medica l SOFT DEV and 1 Each Branc h LANCETS at noon MISC) and 1 Each in the evening. lancing Yes 1{each} Take 1 Unive rs device/lanc 4-17 Each in [facility] ets 14:20: the [place] (ACCU-CHEK 29 morning Medica l SOFT DEV and 1 Each Branc h LANCETS at noon MISC) and 1 Each in the evening. lancing 0 Yes 1{each} Take 1 Unive rs device/lanc 4-17 Each in [facility] ets 14:20: the [place] (ACCU-CHEK 29 morning Medica l SOFT DEV and 1 Each Branc h LANCETS at noon MISC) and 1 Each in the evening. lancing 0 Yes 1{each} Take 1 Unive rs device/lanc 4-17 Each in [facility] ets 14:20: the [place] (ACCU-CHEK 29 morning Medica l SOFT DEV and 1 Each Branc h LANCETS at noon MISC) and 1 Each in the evening. lancing 2022-0 Yes 1{each} Take 1 [facility] 4-[facility]:20: the [place] (ACCU-CHEK 29 morning Medica l SOFT DEV and 1 Each Branc h LANCETS at noon MISC) and 1 Each in the evening. lancing Yes 1{each} Take 1 Unive rs device/lanc 4-17 Each in [facility] ets 14:20: the [place] (ACCU-CHEK 29 morning Medica l SOFT DEV and 1 Each Branc h LANCETS at noon MISC) and 1 Each in the evening. lancing Yes 1{each} Take 1 Unive rs device/lanc 4-17 Each in [facility] ets 14:20: the [place] (ACCU-CHEK 29 morning Medica l SOFT DEV and 1 Each Branc h LANCETS at noon MISC) and 1 Each in the evening. lancing Yes 1{each} Take 1 Unive rs device/lanc 4-17 Each in [facility] ets 14:20: the [place] (ACCU-CHEK 29 morning Medica l SOFT DEV and 1 Each Branc h LANCETS at noon MISC) and 1 Each in the evening. lancing Yes 1{each} Take 1 Unive rs device/lanc 4-17 Each in [facility] ets 14:20: the [place] (ACCU-CHEK 29 morning Medica l SOFT DEV and 1 Each Branc h LANCETS at noon MISC) and 1 Each in the evening. lancing Yes 1{each} Take 1 Unive rs device/lanc 4-17 Each in [facility] ets 14:20: the [place] (ACCU-CHEK 29 morning Medica l SOFT DEV and 1 Each Branc h LANCETS at noon MISC) and 1 Each in the evening. lancing Yes 1{each} Take 1 Unive rs device/lanc 4-17 Each in [facility] ets 14:20: the [place] (ACCU-CHEK 29 morning Medica l SOFT DEV [...] ity of tablet 14:01: 00:00 mouth at [place] 18 :00 bedtime. Medical Branch apixaban 5 2022-0 2023- No 5mg Take 1 Univ ers mg tablet 4-17 04-17 tablet by ity of 14:: 00:00 mouth [place] 18 :00 every 12 Medical (twelve) Branch hours. metoprolol 3-0 3- No 25mg Take 1 Univ ers tartrate 25 4-17 04-17 tablet by it y of mg tablet 14:01: 00:00 mouth in [facility] as 18 :00 the Medical morning [...] ity of tablet 14:01: 00:00 mouth at [place] 18 :00 bedtime. Medical Branch apixaban 5 2022-0 2023- No 5mg Take 1 Univ ers mg tablet 4-17 04-17 tablet by ity of 14:01: 00:00 mouth [place] 18 :00 every 12 Medical (twelve) Branch hours. metoprolol 3-0 2023- No 25mg Take 1 Univ ers tartrate 25 4-17 04-17 tablet by it y of mg tablet 14:01: 00:00 mouth in [facility] as 18 :00 the Medical morning Branch and 1 tablet in the evening. lisinopriL 2022- No 2.5mg [...] ity of tablet 14:01: 00:00 mouth at [place] 18 :00 bedtime. Medical Branch apixaban 5 2022- No 5mg Take 1 Univ ers mg tablet 4-17 04-17 tablet by ity of 14:01: 00:00 mouth [place] 18 :00 every 12 Medical (twelve) Branch hours. metoprolol 2022-2022- No 25mg Take 1 Univ ers tartrate 25 4-17 04-17 tablet by it y of mg tablet 14:01: 00:00 mouth in [facility] as 18 :00 the Medical morning Branch and 1 tablet in the evening. SERTraline 2022-2022- No 25mg Take 1 Univ ers 25 mg 4-17 04-17 tablet by ity of tablet 14:01: 00:00 mouth in [place] 12 :00 the Medical morning. Branch SERTraline 2022- No 25mg Take 1 Univ ers 25 mg 4-17 04-17 tablet by ity of tablet 14:01: 00:00 mouth in [place] 12 :00 the Medical morning. Branch SERTraline 2022- No 25mg Take 1 Univ ers 25 mg 4-17 04-17 tablet by ity of tablet 14:01: 00:00 mouth in [place] 12 :00 the Medical morning. Branch Miscellaneo Yes Bilateral U nivers Medical 4-17 prosthetic ity of Supply Misc 13:42: s - [facility] Medical Branch Miscellaneo Yes Bilateral U nivers us Medical 4-17 prosthetic ity of Supply Misc 13:42: s - [facility] Medical Branch Miscellaneo Yes Bilateral U nivers Medical 4-17 prosthetic ity of Supply Misc [...] N 22 Unsure of Medi dilshad PEN CA) what kind Branch of humulin insulin he takes insulin NPH 2022-0 Yes inject Univ ers human 4-17 under the ity of isophane 13:33: skin. Abdi (HUMULIN N 22 Unsure of Medi dilshad PEN CA) what kind Branch of humulin insulin he takes insulin NPH 2022-0 Yes inject Univ ers human 4-17 under the ity of isophane 13:33: skin. Abdi (HUMULIN N 22 Unsure of Medi dilshad PEN CA) what kind Branch of humulin insulin he takes SEMGLEE,INS 3-0 Yes inject Univ ers ULIN 4-17 under the ity of GLARGINE-YF 13:33: skin. As AURELIO Quintanilla 22 directed Medical Branch insulin NPH 2022-0 Yes inject Univ ers human 4-17 under the ity of isophane 13:33: skin. Abdi (HUMULIN N 22 Unsure of Medi dilshad PEN CA) what kind Branch of humulin insulin he takes SEMGLEE,INS 3-0 Yes inject Univ ers ULIN 4-17 under the ity of GLARGINE-YF 13:33: skin. As AURELIO [place]an[place] 22 directed Medical Branch insulin NPH 2022-0 Yes inject Univ ers human 4-17 under the ity of isophane 13:33: skin. Abdi (HUMULIN N 22 Unsure of Medi dilshad PEN CA) what kind Branch of humulin insulin he takes SEMGLEE,INS 2023-0 Yes inject Univ ers ULIN 4-17 under the ity of GLARGINE-YF 13:33: skin. As AURELIO [place] 22 directed Medical Branch insulin NPH 2022-0 Yes inject Univ ers human 4-17 under the ity of isophane 13:33: skin. Abdi (HUMULIN N 22 Unsure of Medi dilshad PEN CA) what kind Branch of humulin insulin he takes SEMGLEE,INS 2023-0 Yes inject Univ ers ULIN 4-17 under the ity of GLARGINE-YF 13:33: skin. As AURELIO [place] 22 directed Medical Branch insulin NPH 2022-0 Yes inject Univ ers human 4-17 under the ity of isophane 13:33: skin. Abdi (HUMULIN N 22 Unsure of Medi dilshad PEN CA) what kind Branch of humulin insulin he takes SEMGLEE,INS 2023-0 Yes inject Univ ers ULIN 4-17 under the ity of GLARGINE-YF 13:33: skin. As AURELIO [place] 22 directed Medical Branch insulin NPH 2022-0 Yes inject Univ ers human 4-17 under the ity of isophane 13:33: skin. Abdi (HUMULIN N 22 Unsure of Medi dilshad PEN CA) what kind Branch of humulin insulin he takes SEMGLEE,INS 2023-0 Yes inject Univ ers ULIN 4-17 under the ity of GLARGINE-YF 13:33: skin. As AURELIO [place]an[place] 22 directed Medical Branch insulin NPH 2022-0 Yes inject Univ ers human 4-17 under the ity of isophane 13:33: skin. Abdi (HUMULIN N 22 Unsure of Medi dilshad PEN CA) what kind Branch of humulin insulin he takes SEMGLEE,INS 2023-0 Yes inject Univ ers ULIN 4-17 under the ity of GLARGINE-YF 13:33: skin. As AURELIO [place]an[place] 22 directed Medical Branch insulin NPH 2022-0 Yes inject Univ ers human 4-17 under the ity of isophane 13:33: skin. Abdi (HUMULIN N 22 Unsure of Medi dilshad PEN CA) what kind Branch of humulin insulin he takes SEMGLEE,INS 2023-0 Yes inject Univ ers ULIN 4-17 under the ity of GLARGINE-YF 13:33: skin. As AURELIO [place]an[place] 22 directed Medical Branch insulin NPH 3-0 Yes inject Univ ers human 4-17 under the ity of isophane 13:33: skin. Abdi (HUMULIN N 22 Unsure of Medi dilshad PEN CA) what kind Branch of humulin insulin he takes SEMGLEE,INS 2023-0 Yes inject Univ ers ULIN 4-17 under the ity of GLARGINE-YF 13:33: skin. As AURELIO [place] 22 directed Medical Branch insulin NPH 3-0 Yes inject Univ ers human 4-17 under the ity of isophane 13:33: skin. Abdi (HUMULIN N 22 Unsure of [facility] dilshad [facility]) what kind Branch of humulin insulin he takes SEMGLEE,INS 2023-0 Yes inject Univ ers ULIN 4-17 under the ity of GLARGINE-YF 13:33: skin. As AURELIO Quintan[place] 22 directed Medical Branch insulin NPH 2022-0 Yes inject Univ ers human 4-17 under the ity of isophane 13:33: skin. Abdi (HUMULIN N 22 Unsure of [facility] dilshad PEN CA) what kind Branch of humulin insulin he takes SEMGLEE,INS 2023-0 Yes inject Univ ers ULIN 4-17 under the ity of GLARGINE-YF 13:33: skin. As AURELIO Quintanilla 22 directed Medical Branch insulin NPH 2022-0 Yes inject Univ ers human 4-17 under the ity of isophane 13:33: skin. Abdi (HUMULIN N 22 Unsure of [facility] dilshad [facility]) what kind Branch of humulin insulin he takes SEMGLEE,INS 3-0 Yes inject Univ ers ULIN 4-17 under the ity of GLARGINE-YF 13:33: skin. As AURELIO Quintan[place] 22 directed Medical Branch insulin NPH 2022-0 Yes inject Univ ers human 4-17 under the ity of isophane 13:33: skin. Abdi (HUMULIN N 22 Unsure of [facility]) what kind Branch of humulin insulin he takes SEMGLEE,INS 3-0 Yes inject Univ ers ULIN 4-17 under the ity of GLARGINE-YF 13:33: skin. As AURELIO Quintanilla 22 directed Medical Branch insulin NPH 2022-0 Yes inject Univ ers human 4-17 under the ity of isophane 13:33: skin. Abdi (HUMULIN N 22 Unsure of [facility] dilshad PEN CA) what kind Branch of humulin insulin he takes SEMGLEE,INS 2023-0 Yes inject Univ ers ULIN 4-17 under the ity of GLARGINE-YF 13:33: skin. As AURELIO Quintanilla 22 directed Medical Branch insulin NPH 2022-0 Yes inject Univ ers human 4-17 under the ity of isophane 13:33: skin. Abdi (HUMULIN N 22 Unsure of [facility] dilshad [facility]) what kind Branch of humulin insulin he takes SEMGLEE,INS 2023-0 Yes inject Univ ers ULIN 4-17 under the ity of GLARGINE-YF 13:33: skin. As AURELIO Quintanilla 22 directed Medical Branch insulin NPH 2022-0 Yes inject Univ ers human 4-17 under the ity of isophane 13:33: skin. Abdi (HUMULIN N 22 Unsure of Medi dilshad PEN CA) what kind Branch of humulin insulin he takes SEMGLEE,INS 2023-0 Yes inject Univ ers ULIN 4-17 under the ity of GLARGINE-YF 13:33: skin. As AURELIO [place]anilla 22 directed Medical Branch insulin NPH 2022-0 Yes inject Univ ers human 4-17 under the ity of isophane 13:33: skin. Abdi (HUMULIN N 22 Unsure of Medi dilshad PEN CA) what kind Branch of humulin insulin he takes SEMGLEE,INS 2023-0 Yes inject Univ ers ULIN 4-17 under the ity of GLARGINE-YF 13:33: skin. As AURELIO Quintanilla 22 directed Medical Branch insulin NPH 2022-0 Yes inject Univ ers human 4-17 under the ity of isophane 13:33: skin. Abdi (HUMULIN N 22 Unsure of Medi dilshad PEN CA) what kind Branch of humulin insulin he takes SEMGLEE,INS 2023-0 Yes inject Univ ers ULIN 4-17 under the ity of GLARGINE-YF 13:33: skin. As AURELIO [place]an[place] 22 directed Medical Branch insulin NPH 2022-0 Yes inject Univ ers human 4-17 under the ity of isophane 13:33: skin. Abdi (HUMULIN N 22 Unsure of Medi dilshad PEN CA) what kind Branch of humulin insulin he takes SEMGLEE,INS 2023-0 Yes inject Univ ers ULIN 4-17 under the ity of GLARGINE-YF 13:33: skin. As AURELIO Quintan[place] 22 directed Medical Branch insulin NPH 3-0 Yes inject Univ ers human 4-17 under the ity of isophane 13:33: skin. Abdi (HUMULIN N 22 Unsure of Medi dilshad PEN CA) what kind Branch of humulin insulin he takes SEMGLEE,INS 2023-0 Yes inject Univ ers ULIN 4-17 under the ity of GLARGINE-YF 13:33: skin. As AURELIO Quintan[place] 22 directed Medical Branch insulin NPH 2022-0 Yes inject Univ ers human 4-17 under the ity of isophane 13:33: skin. Abdi (HUMULIN N 22 Unsure of Medi dilshad PEN CA) what kind Branch of humulin insulin he takes SEMGLEE,INS 2023-0 Yes inject Univ ers ULIN 4-17 under the ity of GLARGINE-YF 13:33: skin. As AURELIO Quintanilla 22 directed Medical Branch insulin NPH 2022-0 Yes inject Univ ers human 4-17 under the ity of isophane 13:33: skin. Abdi (HUMULIN N 22 Unsure of Medi dilshad PEN CA) what kind Branch of humulin insulin he takes SEMGLEE,INS 3-0 Yes inject Univ ers ULIN 4-17 under the ity of GLARGINE-YF 13:33: skin. As AURELIO Quintanilla 22 directed Medical Branch insulin NPH 2022-0 Yes inject Univ ers human 4-17 under the ity of isophane 13:33: skin. Abdi (HUMULIN N 22 Unsure of Medi dilshad PEN CA) what kind Branch of humulin insulin he takes SEMGLEE,INS 3-0 Yes inject Univ ers ULIN 4-17 under the ity of GLARGINE-YF 13:33: skin. As AURELIO Quintanilla 22 directed Medical Branch insulin NPH 2022-0 Yes inject Univ ers human 4-17 under the ity of isophane 13:33: skin. Abdi (HUMULIN N 22 Unsure of Medi dilshad PEN CA) what kind Branch of humulin insulin he takes SEMGLEE,INS 2023-0 Yes inject Univ ers ULIN 4-17 under the ity of GLARGINE-YF 13:33: skin. As AURELIO Quintanilla 22 directed Medical Branch insulin NPH 2022-0 Yes inject Univ ers human 4-17 under the ity of isophane 13:33: skin. Abdi (HUMULIN N 22 Unsure of Medi dilshad PEN CA) what kind Branch of humulin insulin he [...] N 22 Unsure of Medi dilshad PEN CA) what kind Branch of humulin insulin he takes SEMGLEE,INS 2023-0 Yes inject Univ ers ULIN 4-17 under the ity of GLARGINE-YF 13:33: skin. As AURELIO Quintanilla 22 directed Medical Branch insulin NPH 3-0 Yes inject Univ ers human 4-17 under the ity of isophane 13:33: skin. Abdi (HUMULIN N 22 Unsure of Medi dilshad PEN CA) what kind Branch of humulin insulin he takes insulin NPH 2023-0 Yes inject Univ ers human 4-17 under the ity of isophane 13:33: skin. Abdi (HUMULIN N 22 Unsure of Medi dilshad PEN CA) what kind Branch of humulin insulin he takes insulin NPH 2023-0 Yes inject Univ ers human 4-17 under the ity of isophane 13:33: skin. Abdi (HUMULIN N 22 Unsure of Medi dilshad PEN CA) what kind Branch of humulin insulin he [...] under the ity of isophane 13:33: skin. [place] (HUMULIN N 22 Unsure of Medi dilshad PEN [place]) what kind Branch of humulin insulin he takes insulin NPH 2023-0 Yes inject Univ ers human 4-17 under the ity of isophane 13:33: skin. [place] (HUMULIN N 22 Unsure of Medi dilshad PEN [place]) what kind Branch of humulin insulin he takes cephALEXin 2023-0 Yes 500mg Take 1 Univ ers 500 mg 4-17 capsule by ity of capsule 13:23: mouth 4 [place] [id number] (four) Medical times Branch daily. cephALEXin 2023-0 Yes 500mg Take 1 Univ ers 500 mg 4-17 capsule by ity of capsule 13:23: mouth 4 [place] [address] (four) Medical times Branch daily. cephALEXin 2023-0 Yes 500mg Take 1 Univ ers 500 mg 4-17 capsule by ity of capsule 13:23: mouth 4 [place] [id number] (four) Medical times Branch daily. cephALEXin 2023-0 Yes 500mg Take 1 Univ ers 500 mg 4-17 capsule by ity of capsule 13:23: mouth 4 [place] [id number] (four) Medical times Branch daily. cephALEXin 2023-0 Yes 500mg Take 1 Univ ers 500 mg 4-17 capsule by ity of capsule 13:23: mouth 4 [place] [id number] (four) Medical times Branch daily. cephALEXin 2023-0 Yes 500mg Take 1 Univ ers 500 mg 4-17 capsule by ity of capsule 13:23: mouth 4 [place] 56 (four) Medical times Branch daily. cephALEXin 2023-0 Yes 500mg Take 1 Univ ers 500 mg 4-17 capsule by ity of capsule 13:23: mouth 4 [place] 56 (four) Medical times Branch daily. cephALEXin 2023-0 Yes 500mg Take 1 Univ ers 500 mg 4-17 capsule by ity of capsule 13:23: mouth 4 [place] 56 (four) Medical times Branch daily. cephALEXin 2023-0 Yes 500mg Take 1 Univ ers 500 mg 4-17 capsule by ity of capsule 13:23: mouth 4 [place] [address] (four) Medical times Branch daily. cephALEXin 2023-0 Yes 500mg Take 1 Univ ers 500 mg 4-17 capsule by ity of capsule 13:23: mouth 4 [place] [id number] (four) Medical times Branch daily. cephALEXin 2023-0 Yes 500mg Take 1 Univ ers 500 mg 4-17 capsule by ity of capsule 13:23: mouth 4 [place] 56 (four) Medical times Branch daily. cephALEXin 2023-0 Yes 500mg Take 1 Univ ers 500 mg 4-17 capsule by ity of capsule 13:23: mouth 4 [place] 56 (four) Medical times Branch daily. cephALEXin 2023-0 Yes 500mg Take 1 Univ ers 500 mg 4-17 capsule by ity of capsule 13:23: mouth 4 [place] [address] (four) Medical times Branch daily. cephALEXin 2023-0 Yes 500mg Take 1 Univ ers 500 mg 4-17 capsule by ity of capsule 13:23: mouth 4 [place] [address] (four) Medical times Branch daily. cephALEXin 2023-0 Yes 500mg Take 1 Univ ers 500 mg 4-17 capsule by ity of capsule 13:23: mouth 4 [place] [address] (four) Medical times Branch daily. cephALEXin 2023-0 Yes 500mg Take 1 [facility] 500 mg 4-17 capsule by it[facility] of capsule 13:23: mouth 4 [place] [address] (four) Medical times Branch daily. cephALEXin 2023-0 Yes 500mg Take 1 [facility] 500 mg 4-17 capsule by it[facility] of capsule 13:23: mouth 4 [place] [address] (four) Medical times Branch daily. cephALEXin 2023-0 Yes 500mg Take 1 [facility] 500 mg 4-17 capsule by it[facility] of capsule 13:23: mouth 4 [place] [address] (four) Medical times Branch daily. cephALEXin 2023-0 Yes 500mg Take 1 [facility] 500 mg 4-17 capsule by ity of capsule 13:23: mouth 4 [place] [address] (four) Medical times Branch daily. cephALEXin 2023-0 Yes 500mg Take 1 [facility] 500 mg 4-17 capsule by ity of capsule 13:23: mouth 4 [place] [address] (four) Medical times Branch daily. cephALEXin 2023-0 Yes 500mg Take 1 [facility] 500 mg 4-17 capsule by it[facility] of capsule 13:23: mouth 4 [place] [address] (four) Medical times Branch daily. cephALEXin 2023-0 Yes 500mg Take 1 [facility] 500 mg 4-17 capsule by ity of capsule 13:23: mouth 4 [place] [address] (four) Medical times Branch daily. cephALEXin 2023-0 Yes 500mg Take 1 [facility] 500 mg 4-17 capsule by ity of capsule 13:23: mouth 4 [place] 56 (four) Medical times Branch daily. gabapentin 2022-0 Yes [id number] 300mg Take 1 [facility] 300 mg 4-17 capsule by [facility] of capsule 00:00: mouth in [place] 00 the Medical morning Branch and 1 capsule at noon and 1 capsule in the evening. amiodarone 2022-0 Yes [id number] 200mg Take 1 [facility] 200 mg 4-17 tablet by [facility] of tablet 00:00: mouth in [place] 00 the Medical morning. Branch apixaban 5 0 Yes 5mg Take 1 [facility] rs mg tablet 4-17 tablet by ity o f 00:00: mouth in [place] 00 the Medical morning Branch and 1 tablet in the evening. Indication s: ATRIAL FIBRILLATI ON atorvastati Yes [id number] 40mg Take 1 [facility] n 40 mg 4-17 tablet by it[facility] of tablet 00:00: mouth at [place] 00 bedtime. Medical Branch SERTraline 0 Yes [id number] 100mg Take 1 [facility] 100 mg 4-17 tablet by [facility] of tablet 00:00: mouth in [place] 00 the morning. Branch lisinopriL 0 Yes [id number] 2.5mg Take 1 [facility] 2.5 mg 4-17 tablet by ity of tablet 00:00: mouth in [place] 00 the morning. Branch metoprolol 0 Yes [id number] 25mg Take 1 [facility] n[facility] tartrate 25 4-17 tablet by ity of mg tablet 00:00: mouth in [facility] 00 the Medical morning Branch and 1 tablet in the evening. blood sugar 2022-0 Yes [id number] Check U nivers diagnostic 4-17 blood ity of strip 00:00: sugar 2 [place] 00 times a Medical day. Branch E11.9. Brand per insurance. Uses ACCU-CHEK machine Lancets 0 Yes [id number] Check Unive rs Misc 4-17 blood ity of 00:00: sugar 2 [place] 00 times a Medical day. Branch E11.9. Brand per insurance. gabapentin 2022-0 Yes [id number] 300mg Take 1 [facility] 300 mg 4-17 capsule by ity of capsule 00:00: mouth in [place] 00 the Medical morning Branch and 1 capsule at noon and 1 capsule in the evening. amiodarone Yes [id number] 200mg Take 1 [facility] 200 mg 4-17 tablet by ity of tablet 00:00: mouth in [place] the morning. Branch apixaban 5 0 Yes 5mg Take 1 [facility] rs mg tablet 4-17 tablet by ity o f 00:00: mouth in [place] the morning Branch and 1 tablet in the evening. Indication s: ATRIAL FIBRILLATI ON atorvastati Yes [id number] 40mg Take 1 [facility] n 40 mg 4-17 tablet by ity of tablet 00:00: mouth at [place] [address] bedtime. Medical Branch SERTraline Yes [id number] 100mg Take 1 [facility] 100 mg 4-17 tablet by ity of tablet 00:00: mouth in [place] the morning. Branch lisinopriL Yes [id number] 2.5mg Take 1 [facility] 2.5 mg 4-17 tablet by ity of tablet 00:00: mouth in [place] the morning. Branch metoprolol Yes [id number] 25mg Take 1 [facility] nivers tartrate 25 4-17 tablet by ity of mg tablet 00:00: mouth in [facility] the morning Branch and 1 tablet in the evening. blood sugar 0 Yes [id number] Check U nivers diagnostic 4-17 blood ity of strip 00:00: sugar 2 [place] 00 times a Medical day. Branch E11.9. Brand per insurance. Uses ACCU-CHEK machine Lancets Yes [id number] Check Unive rs Misc 4-17 blood ity of 00:00: sugar 2 [place] 00 times a Medical day. Branch E11.9. Brand per insurance. gabapentin 0 Yes [id number] 300mg Take 1 [facility] 300 mg 4-17 capsule by ity of capsule 00:00: mouth in [place] the morning Branch and 1 capsule at noon and 1 capsule in the evening. amiodarone 0 Yes [id number] 200mg Take 1 [facility] 200 mg 4-17 tablet by ity of tablet 00:00: mouth in [place] 00 the morning. Branch apixaban 5 0 Yes 5mg Take 1 [facility] rs mg tablet 4-17 tablet by ity o f 00:00: mouth in [place] 00 the morning Branch and 1 tablet in the evening. Indication s: ATRIAL FIBRILLATI ON atorvastati Yes [id number] 40mg Take 1 [facility] n 40 mg 4-17 tablet by ity of tablet 00:00: mouth at [place] [address] bedtime. Medical Branch SERTraline Yes [id number] 100mg Take 1 [facility] 100 mg 4-17 tablet by ity of tablet 00:00: mouth in [place] 00 the morning. Branch lisinopriL Yes [id number] 2.5mg Take 1 [facility] 2.5 mg 4-17 tablet by ity of tablet 00:00: mouth in [place] 00 the morning. Branch metoprolol Yes [id number] 25mg Take 1 [facility] nivers tartrate 25 4-17 tablet by ity of mg tablet 00:00: mouth in [facility] 00 the morning Branch and 1 tablet in the evening. blood sugar Yes [id number] Check U nivers diagnostic 4-17 blood ity of strip 00:00: sugar 2 [place] 00 times a Medical day. Branch E11.9. Brand per insurance. Uses ACCU-CHEK machine Lancets Yes [id number] Check Unive rs Misc 4-17 blood ity of 00:00: sugar 2 [place] 00 times a Medical day. Branch E11.9. Brand per insurance. gabapentin Yes [id number] 300mg Take 1 [facility] 300 mg 4-17 capsule by ity of capsule 00:00: mouth in [place] 00 the morning Branch and 1 capsule at noon and 1 capsule in the evening. amiodarone Yes [id number] 200mg Take 1 [facility] 200 mg 4-17 tablet by ity of tablet 00:00: mouth in [place] 00 the morning. Branch apixaban 5 0 Yes 5mg Take 1 [facility] rs mg tablet 4-17 tablet by ity o f 00:00: mouth in [place] 00 the morning Branch and 1 tablet in the evening. Indication s: ATRIAL FIBRILLATI ON atorvastati Yes [id number] 40mg Take 1 [facility] n 40 mg 4-17 tablet by ity of tablet 00:00: mouth at [place] [address] bedtime. Medical Branch SERTraline Yes [id number] 100mg Take 1 [facility] 100 mg 4-17 tablet by ity of tablet 00:00: mouth in [place] the morning. Branch lisinopriL Yes [id number] 2.5mg Take 1 [facility] 2.5 mg 4-17 tablet by ity of tablet 00:00: mouth in [place] the morning. Branch metoprolol Yes [id number] 25mg Take 1 U nivers tartrate 25 4-17 tablet by ity of mg tablet 00:00: mouth in [facility] 00 the morning Branch and 1 tablet in the evening. blood sugar Yes [id number] Check U nivers diagnostic 4-17 blood ity of strip 00:00: sugar 2 [place] times a Medical day. Branch E11.9. Brand per insurance. Uses ACCU-CHEK machine Lancets Yes [id number] Check Unive rs Misc 4-17 blood ity of 00:00: sugar 2 [place] times a Medical day. Branch E11.9. Brand per insurance. gabapentin Yes [id number] 300mg Take 1 [facility] 300 mg 4-17 capsule by ity of capsule 00:00: mouth in [place] the morning Branch and 1 capsule at noon and 1 capsule in the evening. amiodarone Yes [id number] 200mg Take 1 [facility] 200 mg 4-17 tablet by ity of tablet 00:00: mouth in [place] the morning. Branch apixaban 5 Yes 5mg Take 1 [facility] rs mg tablet 4-17 tablet by ity o f 00:00: mouth in [place] the morning Branch and 1 tablet in the evening. Indication s: ATRIAL FIBRILLATI ON atorvastati Yes [id number] 40mg Take 1 [facility] n 40 mg 4-17 tablet by ity of tablet 00:00: mouth at [place] [address] bedtime. Medical Branch SERTraline Yes [id number] 100mg Take 1 [facility] 100 mg 4-17 tablet by ity of tablet 00:00: mouth in [place] 00 the morning. Branch lisinopriL Yes [id number] 2.5mg Take 1 [facility] 2.5 mg 4-17 tablet by ity of tablet 00:00: mouth in [place] the Medical morning. Branch metoprolol 0 Yes [id number] 25mg Take 1 U nivers tartrate 25 4-17 tablet by ity of mg tablet 00:00: mouth in [facility] the morning Branch and 1 tablet in the evening. blood sugar 2022-0 Yes [id number] Check U nivers diagnostic 4-17 blood ity of strip 00:00: sugar 2 [place] times a Medical day. Branch E11.9. Brand per insurance. Uses ACCU-CHEK machine Lancets 2022-0 Yes [id number] Check Unive rs Misc 4-17 blood ity of 00:00: sugar 2 [place] times a Medical day. Branch E11.9. Brand per insurance. gabapentin 2022-0 Yes [id number] 300mg Take 1 [facility] 300 mg 4-17 capsule by ity of capsule 00:00: mouth in [place] the morning Branch and 1 capsule at noon and 1 capsule in the evening. amiodarone 0 Yes [id number] 200mg Take 1 [facility] 200 mg 4-17 tablet by ity of tablet 00:00: mouth in [place] the morning. Branch apixaban 5 0 Yes 5mg Take 1 [facility] rs mg tablet 4-17 tablet by ity o f 00:00: mouth in [place] the morning Branch and 1 tablet in the evening. Indication s: ATRIAL FIBRILLATI ON atorvastati 2022-0 Yes [id number] 40mg Take 1 [facility] n 40 mg 4-17 tablet by ity of tablet 00:00: mouth at [place] [address] bedtime. Medical Branch SERTraline 2022-0 Yes [id number] 100mg Take 1 [facility] 100 mg 4-17 tablet by ity of tablet 00:00: mouth in [place] the morning. Branch lisinopriL 2022-0 Yes [id number] 2.5mg Take 1 [facility] 2.5 mg 4-17 tablet by ity of tablet 00:00: mouth in [place] the morning. Branch metoprolol 2022-0 Yes [id number] 25mg Take 1 U nivers tartrate 25 4-17 tablet by ity of mg tablet 00:00: mouth in [facility] the morning Branch and 1 tablet in the evening. blood sugar 2022-0 Yes [id number] Check U nivers diagnostic 4-17 blood ity of strip 00:00: sugar 2 [place] 00 times a Medical day. Branch E11.9. Brand per insurance. Uses ACCU-CHEK machine Lancets Yes [id number] Check Unive rs Misc 4-17 blood ity of 00:00: sugar 2 [place] 00 times a Medical day. Branch E11.9. Brand per insurance. gabapentin Yes [id number] 300mg Take 1 [facility] 300 mg 4-17 capsule by ity of capsule 00:00: mouth in [place] 00 the morning Branch and 1 capsule at noon and 1 capsule in the evening. amiodarone Yes [id number] 200mg Take 1 [facility] 200 mg 4-17 tablet by ity of tablet 00:00: mouth in [place] 00 the morning. Branch apixaban 5 Yes 5mg Take 1 [facility] rs mg tablet 4-17 tablet by ity o f 00:00: mouth in [place] the morning Branch and 1 tablet in the evening. Indication s: ATRIAL FIBRILLATI ON atorvastati Yes [id number] 40mg Take 1 [facility] n 40 mg 4-17 tablet by ity of tablet 00:00: mouth at [place] [address] bedtime. Medical Branch SERTraline Yes [id number] 100mg Take 1 [facility] 100 mg 4-17 tablet by ity of tablet 00:00: mouth in [place] 00 the morning. Branch lisinopriL Yes [id number] 2.5mg Take 1 [facility] 2.5 mg 4-17 tablet by ity of tablet 00:00: mouth in [place] 00 the morning. Branch metoprolol Yes [id number] 25mg Take 1 U nivers tartrate 25 4-17 tablet by ity of mg tablet 00:00: mouth in [facility] 00 the morning Branch and 1 tablet in the evening. blood sugar Yes [id number] Check U nivers diagnostic 4-17 blood ity of strip 00:00: sugar 2 [place] 00 times a Medical day. Branch E11.9. Brand per insurance. Uses ACCU-CHEK machine Lancets 0 Yes [id number] Check Unive rs Misc 4-17 blood ity of 00:00: sugar 2 [place] 00 times a Medical day. Branch E11.9. Brand per insurance. gabapentin Yes [id number] 300mg Take 1 [facility] 300 mg 4-17 capsule by ity of capsule 00:00: mouth in [place] 00 the Medical morning Branch and 1 capsule at noon and 1 capsule in the evening. amiodarone 0 Yes [id number] 200mg Take 1 [facility] 200 mg 4-17 tablet by ity of tablet 00:00: mouth in [place] 00 the morning. Branch apixaban 5 0 Yes 5mg Take 1 [facility] rs mg tablet 4-17 tablet by ity o f 00:00: mouth in [place] 00 the morning Branch and 1 tablet in the evening. Indication s: ATRIAL FIBRILLATI ON atorvastati Yes [id number] 40mg Take 1 [facility] n 40 mg 4-17 tablet by ity of tablet 00:00: mouth at [place] [address] bedtime. Medical Branch SERTraline Yes [id number] 100mg Take 1 [facility] 100 mg 4-17 tablet by ity of tablet 00:00: mouth in [place] the morning. Branch lisinopriL Yes [id number] 2.5mg Take 1 [facility] 2.5 mg 4-17 tablet by ity of tablet 00:00: mouth in [place] [address] the morning. Branch metoprolol Yes [id number] 25mg Take 1 U nivers tartrate 25 4-17 tablet by ity of mg tablet 00:00: mouth in [facility] 00 the morning Branch and 1 tablet in the evening. blood sugar 0 Yes [id number] Check U nivers diagnostic 4-17 blood ity of strip 00:00: sugar 2 [place] 00 times a Medical day. Branch E11.9. Brand per insurance. Uses ACCU-CHEK machine Lancets 0 Yes [id number] Check Unive rs Misc 4-17 blood ity of 00:00: sugar 2 [place] 00 times a Medical day. Branch E11.9. Brand per insurance. gabapentin 0 Yes [id number] 300mg Take 1 [facility] 300 mg 4-17 capsule by ity of capsule 00:00: mouth in [place] 00 the Medical morning Branch and 1 capsule at noon and 1 capsule in the evening. amiodarone 2022-0 Yes [id number] 200mg Take 1 [facility] 200 mg 4-17 tablet by ity of tablet 00:00: mouth in [place] the morning. Branch apixaban 5 Yes 5mg Take 1 [facility] rs mg tablet 4-17 tablet by ity o f 00:00: mouth in [place] the morning Branch and 1 tablet in the evening. Indication s: ATRIAL FIBRILLATI ON atorvastati Yes [id number] 40mg Take 1 [facility] n 40 mg 4-17 tablet by ity of tablet 00:00: mouth at [place] [address] bedtime. Medical Branch SERTraline Yes [id number] 100mg Take 1 [facility] 100 mg 4-17 tablet by ity of tablet 00:00: mouth in [place] the morning. Branch lisinopriL Yes [id number] 2.5mg Take 1 [facility] 2.5 mg 4-17 tablet by ity of tablet 00:00: mouth in [place] the morning. Branch metoprolol Yes [id number] 25mg Take 1 U nivers tartrate 25 4-17 tablet by ity of mg tablet 00:00: mouth in [facility] the morning Branch and 1 tablet in the evening. blood sugar Yes [id number] Check U nivers diagnostic 4-17 blood ity of strip 00:00: sugar 2 [place] times a Medical day. Branch E11.9. Brand per insurance. Uses ACCU-CHEK machine Lancets Yes [id number] Check Unive rs Misc 4-17 blood ity of 00:00: sugar 2 [place] times a Medical day. Branch E11.9. Brand per insurance. gabapentin Yes [id number] 300mg Take 1 [facility] 300 mg 4-17 capsule by ity of capsule 00:00: mouth in [place] the morning Branch and 1 capsule at noon and 1 capsule in the evening. amiodarone Yes [id number] 200mg Take 1 [facility] 200 mg 4-17 tablet by ity of tablet 00:00: mouth in [place] 00 the morning. Branch apixaban 5 Yes 5mg Take 1 Un[facility] rs mg tablet 4-17 tablet by ity o f 00:00: mouth in [place] the morning Branch and 1 tablet in the evening. Indication s: ATRIAL FIBRILLATI ON atorvastati Yes [id number] 40mg Take 1 [facility] n 40 mg 4-17 tablet by ity of tablet 00:00: mouth at [place] [address] bedtime. Medical Branch SERTraline Yes [id number] 100mg Take 1 [facility] 100 mg 4-17 tablet by ity of tablet 00:00: mouth in [place] the morning. Branch lisinopriL Yes [id number] 2.5mg Take 1 [facility] 2.5 mg 4-17 tablet by ity of tablet 00:00: mouth in [place] the morning. Branch metoprolol Yes [id number] 25mg Take 1 U nivers tartrate 25 4-17 tablet by ity of mg tablet 00:00: mouth in [facility] the morning Branch and 1 tablet in the evening. blood sugar Yes [id number] Check U nivers diagnostic 4-17 blood ity of strip 00:00: sugar 2 [place] times a Medical day. Branch E11.9. Brand per insurance. Uses ACCU-CHEK machine Lancets Yes [id number] Check Unive rs Misc 4-17 blood ity of 00:00: sugar 2 [place] times a Medical day. Branch E11.9. Brand per insurance. gabapentin Yes [id number] 300mg Take 1 [facility] 300 mg 4-17 capsule by ity of capsule 00:00: mouth in [place] the morning Branch and 1 capsule at noon and 1 capsule in the evening. amiodarone Yes [id number] 200mg Take 1 [facility] 200 mg 4-17 tablet by ity of tablet 00:00: mouth in [place] the morning. Branch apixaban 5 Yes 5mg Take 1 Unive rs mg tablet 4-17 tablet by ity o f 00:00: mouth in [place] the morning Branch and 1 tablet in the evening. Indication s: ATRIAL FIBRILLATI ON atorvastati Yes [id number] 40mg Take 1 [facility] n 40 mg 4-17 tablet by ity of tablet 00:00: mouth at [place] [address] bedtime. Medical Branch SERTraline Yes [id number] 100mg Take 1 [facility] 100 mg 4-17 tablet by ity of tablet 00:00: mouth in [place] 00 the morning. Branch lisinopriL Yes [id number] 2.5mg Take 1 [facility] 2.5 mg 4-17 tablet by ity of tablet 00:00: mouth in [place] 00 the morning. Branch metoprolol Yes [id number] 25mg Take 1 U nivers tartrate 25 4-17 tablet by ity of mg tablet 00:00: mouth in [facility] 00 the morning Branch and 1 tablet in the evening. blood sugar 0 Yes [id number] Check U nivers diagnostic 4-17 blood ity of strip 00:00: sugar 2 [place] times a Medical day. Branch E11.9. Brand per insurance. Uses ACCU-CHEK machine Lancets Yes [id number] Check Unive rs Misc 4-17 blood ity of 00:00: sugar 2 [place] times a Medical day. Branch E11.9. Brand per insurance. gabapentin Yes [id number] 300mg Take 1 [facility] 300 mg 4-17 capsule by ity of capsule 00:00: mouth in [place] the morning Branch and 1 capsule at noon and 1 capsule in the evening. amiodarone Yes [id number] 200mg Take 1 [facility] 200 mg 4-17 tablet by ity of tablet 00:00: mouth in [place] the morning. Branch apixaban 5 Yes 5mg Take 1 Unive rs mg tablet 4-17 tablet by ity o f 00:00: mouth in [place] the morning Branch and 1 tablet in the evening. Indication s: ATRIAL FIBRILLATI ON atorvastati 2022-0 Yes [id number] 40mg Take 1 [facility] n 40 mg 4-17 tablet by ity of tablet 00:00: mouth at [place] [address] bedtime. Medical Branch SERTraline 0 Yes [id number] 100mg Take 1 [facility] 100 mg 4-17 tablet by ity of tablet 00:00: mouth in [place] 00 the morning. Branch lisinopriL Yes [id number] 2.5mg Take 1 [facility] 2.5 mg 4-17 tablet by ity of tablet 00:00: mouth in [place] 00 the morning. Branch metoprolol 2022-0 Yes [id number] 25mg Take 1 U nivers tartrate 25 4-17 tablet by ity of mg tablet 00:00: mouth in [facility] s the Medical morning Branch and 1 tablet in the evening. blood sugar 0 Yes [id number] Check U nivers diagnostic 4-17 blood ity of strip 00:00: sugar 2 [place] 00 times a Medical day. Branch E11.9. Brand per insurance. Uses ACCU-CHEK machine Lancets 0 Yes [id number] Check Unive rs Misc 4-17 blood ity of 00:00: sugar 2 [place] 00 times a Medical day. Branch E11.9. Brand per insurance. gabapentin 0 Yes [id number] 300mg Take 1 [facility] 300 mg 4-17 capsule by ity of capsule 00:00: mouth in [place] 00 the morning Branch and 1 capsule at noon and 1 capsule in the evening. amiodarone Yes [id number] 200mg Take 1 [facility] 200 mg 4-17 tablet by ity of tablet 00:00: mouth in [place] 00 the Medical morning. Branch apixaban 5 Yes 5mg Take 1 Un[facility] rs mg tablet 4-17 tablet by ity o f 00:00: mouth in [place] 00 the morning Branch and 1 tablet in the evening. Indication s: ATRIAL FIBRILLATI ON atorvastati Yes [id number] 40mg Take 1 [facility] n 40 mg 4-17 tablet by ity of tablet 00:00: mouth at [place] [address] bedtime. Medical Branch SERTraline 0 Yes [id number] 100mg Take 1 [facility] 100 mg 4-17 tablet by ity of tablet 00:00: mouth in [place] 00 the Medical morning. Branch lisinopriL Yes [id number] 2.5mg Take 1 [facility] 2.5 mg 4-17 tablet by ity of tablet 00:00: mouth in [place] 00 the Medical morning. Branch metoprolol 0 Yes [id number] 25mg Take 1 U nivers tartrate 25 4-17 tablet by ity of mg tablet 00:00: mouth in [facility] 00 the morning Branch and 1 tablet in the evening. blood sugar 2022-0 Yes [id number] Check U nivers diagnostic 4-17 blood ity of strip 00:00: sugar 2 [place] 00 times a Medical day. Branch E11.9. Brand per insurance. Uses ACCU-CHEK machine Lancets Yes [id number] Check Unive rs Misc 4-17 blood ity of 00:00: sugar 2 [place] 00 times a Medical day. Branch E11.9. Brand per insurance. gabapentin Yes [id number] 300mg Take 1 [facility] 300 mg 4-17 capsule by ity of capsule 00:00: mouth in [place] 00 the Medical morning Branch and 1 capsule at noon and 1 capsule in the evening. amiodarone Yes [id number] 200mg Take 1 [facility] 200 mg 4-17 tablet by ity of tablet 00:00: mouth in [place] 00 the morning. Branch apixaban 5 Yes 5mg Take 1 Un[facility] rs mg tablet 4-17 tablet by ity o f 00:00: mouth in [place] 00 the morning Branch and 1 tablet in the evening. Indication s: ATRIAL FIBRILLATI ON atorvastati Yes [id number] 40mg Take 1 [facility] n 40 mg 4-17 tablet by ity of tablet 00:00: mouth at [place] [address] bedtime. Medical Branch SERTraline Yes [id number] 100mg Take 1 [facility] 100 mg 4-17 tablet by ity of tablet 00:00: mouth in [place] the morning. Branch lisinopriL Yes [id number] 2.5mg Take 1 [facility] 2.5 mg 4-17 tablet by ity of tablet 00:00: mouth in [place] the morning. Branch metoprolol Yes [id number] 25mg Take 1 U nivers tartrate 25 4-17 tablet by ity of mg tablet 00:00: mouth in [facility] 00 the morning Branch and 1 tablet in the evening. blood sugar 0 Yes [id number] Check U nivers diagnostic 4-17 blood ity of strip 00:00: sugar 2 [place] 00 times a Medical day. Branch E11.9. Brand per insurance. Uses ACCU-CHEK machine Lancets 0 Yes [id number] Check Unive rs Misc 4-17 blood ity of 00:00: sugar 2 [place] 00 times a Medical day. Branch E11.9. Brand per insurance. gabapentin Yes [id number] 300mg Take 1 [facility] 300 mg 4-17 capsule by ity of capsule 00:00: mouth in [place] 00 the Medical morning Branch and 1 capsule at noon and 1 capsule in the evening. amiodarone Yes [id number] 200mg Take 1 [facility] 200 mg 4-17 tablet by ity of tablet 00:00: mouth in [place] 00 the morning. Branch apixaban 5 0 Yes 5mg Take 1 Un[facility] rs mg tablet 4-17 tablet by ity o f 00:00: mouth in [place] the morning Branch and 1 tablet in the evening. Indication s: ATRIAL FIBRILLATI ON atorvastati Yes [id number] 40mg Take 1 [facility] n 40 mg 4-17 tablet by ity of tablet 00:00: mouth at [place] [address] bedtime. Medical Branch SERTraline Yes [id number] 100mg Take 1 [facility] 100 mg 4-17 tablet by ity of tablet 00:00: mouth in [place] the morning. Branch lisinopriL Yes [id number] 2.5mg Take 1 [facility] 2.5 mg 4-17 tablet by ity of tablet 00:00: mouth in [place] the morning. Branch metoprolol Yes [id number] 25mg Take 1 U nivers tartrate 25 4-17 tablet by ity of mg tablet 00:00: mouth in [facility] the morning Branch and 1 tablet in the evening. blood sugar Yes [id number] Check U nivers diagnostic 4-17 blood ity of strip 00:00: sugar 2 [place] 00 times a Medical day. Branch E11.9. Brand per insurance. Uses ACCU-CHEK machine Lancets Yes [id number] Check Unive rs Misc 4-17 blood ity of 00:00: sugar 2 [place] 00 times a Medical day. Branch E11.9. Brand per insurance. gabapentin 0 Yes [id number] 300mg Take 1 [facility] 300 mg 4-17 capsule by ity of capsule 00:00: mouth in [place] 00 the morning Branch and 1 capsule at noon and 1 capsule in the evening. amiodarone 2022-0 Yes [id number] 200mg Take 1 [facility] 200 mg 4-17 tablet by ity of tablet 00:00: mouth in [place] 00 the morning. Branch apixaban 5 0 Yes 5mg Take 1 Un[facility] rs mg tablet 4-17 tablet by ity o f 00:00: mouth in [place] 00 the Medical morning Branch and 1 tablet in the evening. Indication s: ATRIAL FIBRILLATI ON atorvastati Yes [id number] 40mg Take 1 [facility] n 40 mg 4-17 tablet by ity of tablet 00:00: mouth at [place] [address] bedtime. Medical Branch SERTraline Yes [id number] 100mg Take 1 [facility] 100 mg 4-17 tablet by ity of tablet 00:00: mouth in [place] 00 the morning. Branch lisinopriL Yes [id number] 2.5mg Take 1 [facility] 2.5 mg 4-17 tablet by ity of tablet 00:00: mouth in [place] 00 the morning. Branch metoprolol Yes [id number] 25mg Take 1 U nivers tartrate 25 4-17 tablet by ity of mg tablet 00:00: mouth in [facility] 00 the morning Branch and 1 tablet in the evening. blood sugar Yes [id number] Check U nivers diagnostic 4-17 blood ity of strip 00:00: sugar 2 [place] 00 times a Medical day. Branch E11.9. Brand per insurance. Uses ACCU-CHEK machine Lancets Yes [id number] Check Unive rs Misc 4-17 blood ity of 00:00: sugar 2 [place] 00 times a Medical day. Branch E11.9. Brand per insurance. gabapentin Yes [id number] 300mg Take 1 [facility] 300 mg 4-17 capsule by ity of capsule 00:00: mouth in [place] 00 the morning Branch and 1 capsule at noon and 1 capsule in the evening. amiodarone Yes [id number] 200mg Take 1 [facility] 200 mg 4-17 tablet by ity of tablet 00:00: mouth in [place] 00 the morning. Branch apixaban 5 0 Yes 5mg Take 1 Unive rs mg tablet 4-17 tablet by ity o f 00:00: mouth in [place] 00 the Medical morning Branch and 1 tablet in the evening. Indication s: ATRIAL FIBRILLATI ON atorvastati Yes [id number] 40mg Take 1 [facility] n 40 mg 4-17 tablet by ity of tablet 00:00: mouth at [place] [address] bedtime. Medical Branch SERTraline Yes [id number] 100mg Take 1 [facility] 100 mg 4-17 tablet by ity of tablet 00:00: mouth in [place] the morning. Branch lisinopriL Yes [id number] 2.5mg Take 1 [facility] 2.5 mg 4-17 tablet by ity of tablet 00:00: mouth in [place] the morning. Branch metoprolol Yes [id number] 25mg Take 1 U nivers tartrate 25 4-17 tablet by ity of mg tablet 00:00: mouth in [facility] 00 the morning Branch and 1 tablet in the evening. blood sugar Yes [id number] Check U nivers diagnostic 4-17 blood ity of strip 00:00: sugar 2 [place] times a Medical day. Branch E11.9. Brand per insurance. Uses ACCU-CHEK machine Lancets Yes [id number] Check Unive rs Misc 4-17 blood ity of 00:00: sugar 2 [place] times a Medical day. Branch E11.9. Brand per insurance. gabapentin Yes [id number] 300mg Take 1 [facility] 300 mg 4-17 capsule by ity of capsule 00:00: mouth in [place] the morning Branch and 1 capsule at noon and 1 capsule in the evening. amiodarone Yes [id number] 200mg Take 1 [facility] 200 mg 4-17 tablet by ity of tablet 00:00: mouth in [place] the morning. Branch apixaban 5 Yes 5mg Take 1 Unive rs mg tablet 4-17 tablet by ity o f 00:00: mouth in [place] the morning Branch and 1 tablet in the evening. Indication s: ATRIAL FIBRILLATI ON atorvastati Yes [id number] 40mg Take 1 [facility] n 40 mg 4-17 tablet by ity of tablet 00:00: mouth at [place] 00 bedtime. Medical Branch SERTraline Yes [id number] 100mg Take 1 [facility] 100 mg 4-17 tablet by ity of tablet 00:00: mouth in [place] the morning. Branch lisinopriL Yes [id number] 2.5mg Take 1 [facility] 2.5 mg 4-17 tablet by ity of tablet 00:00: mouth in [place] the morning. Branch metoprolol 2022-0 Yes [id number] 25mg Take 1 U nivers tartrate 25 4-17 tablet by ity of mg tablet 00:00: mouth in [facility] the morning Branch and 1 tablet in the evening. blood sugar 2022-0 Yes [id number] Check U nivers diagnostic 4-17 blood ity of strip 00:00: sugar 2 [place] times a Medical day. Branch E11.9. Brand per insurance. Uses ACCU-CHEK machine Lancets 0 Yes [id number] Check Unive rs Misc 4-17 blood ity of 00:00: sugar 2 [place] times a Medical day. Branch E11.9. Brand per insurance. gabapentin 2022-0 Yes [id number] 300mg Take 1 [facility] 300 mg 4-17 capsule by ity of capsule 00:00: mouth in [place] the morning Branch and 1 capsule at noon and 1 capsule in the evening. amiodarone 0 Yes [id number] 200mg Take 1 [facility] 200 mg 4-17 tablet by ity of tablet 00:00: mouth in [place] the morning. Branch apixaban 5 2022-0 Yes 5mg Take 1 Unive rs mg tablet 4-17 tablet by ity o f 00:00: mouth in [place] the morning Branch and 1 tablet in the evening. Indication s: ATRIAL FIBRILLATI ON atorvastati 2022-0 Yes [id number] 40mg Take 1 [facility] n 40 mg 4-17 tablet by ity of tablet 00:00: mouth at [place] [address] bedtime. Medical Branch SERTraline 2022-0 Yes [id number] 100mg Take 1 [facility] 100 mg 4-17 tablet by ity of tablet 00:00: mouth in [place] the morning. Branch lisinopriL 2022-0 Yes [id number] 2.5mg Take 1 Univers 2.5 mg 4-17 tablet by ity of tablet 00:00: mouth in [place] the morning. Branch metoprolol 2022-0 Yes [id number] 25mg Take 1 U nivers tartrate 25 4-17 tablet by ity of mg tablet 00:00: mouth in [facility] the morning Branch and 1 tablet in the evening. blood sugar 2022-0 Yes [id number] Check U nivers diagnostic 4-17 blood ity of strip 00:00: sugar 2 [place] 00 times a Medical day. Branch E11.9. Brand per insurance. Uses ACCU-CHEK machine Lancets Yes [id number] Check Unive rs Misc 4-17 blood ity of 00:00: sugar 2 [place] 00 times a Medical day. Branch E11.9. Brand per insurance. gabapentin Yes [id number] 300mg Take 1 [facility] 300 mg 4-17 capsule by ity of capsule 00:00: mouth in [place] 00 the morning Branch and 1 capsule at noon and 1 capsule in the evening. amiodarone Yes [id number] 200mg Take 1 [facility] 200 mg 4-17 tablet by ity of tablet 00:00: mouth in [place] 00 the morning. Branch apixaban 5 Yes 5mg Take 1 Unive rs mg tablet 4-17 tablet by ity o f 00:00: mouth in [place] 00 the morning Branch and 1 tablet in the evening. Indication s: ATRIAL FIBRILLATI ON atorvastati Yes [id number] 40mg Take 1 [facility] n 40 mg 4-17 tablet by ity of tablet 00:00: mouth at [place] [address] bedtime. Medical Branch SERTraline Yes [id number] 100mg Take 1 [facility] 100 mg 4-17 tablet by ity of tablet 00:00: mouth in [place] 00 the morning. Branch lisinopriL Yes [id number] 2.5mg Take 1 Univers 2.5 mg 4-17 tablet by ity of tablet 00:00: mouth in [place] 00 the morning. Branch metoprolol Yes [id number] 25mg Take 1 U nivers tartrate 25 4-17 tablet by ity of mg tablet 00:00: mouth in [facility] 00 the morning Branch and 1 tablet in the evening. blood sugar Yes [id number] Check U nivers diagnostic 4-17 blood ity of strip 00:00: sugar 2 [place] 00 times a Medical day. Branch E11.9. Brand per insurance. Uses ACCU-CHEK machine Lancets Yes [id number] Check Unive rs Misc 4-17 blood ity of 00:00: sugar 2 [place] 00 times a Medical day. Branch E11.9. Brand per insurance. gabapentin 0 Yes [id number] 300mg Take 1 [facility] 300 mg 4-17 capsule by ity of capsule 00:00: mouth in [place] 00 the Medical morning Branch and 1 capsule at noon and 1 capsule in the evening. amiodarone 0 Yes [id number] 200mg Take 1 [facility] 200 mg 4-17 tablet by ity of tablet 00:00: mouth in [place] the morning. Branch apixaban 5 0 Yes 5mg Take 1 Unive rs mg tablet 4-17 tablet by ity o f 00:00: mouth in [place] the morning Branch and 1 tablet in the evening. Indication s: ATRIAL FIBRILLATI ON atorvastati Yes [id number] 40mg Take 1 [facility] n 40 mg 4-17 tablet by ity of tablet 00:00: mouth at [place] [address] bedtime. Medical Branch SERTraline Yes [id number] 100mg Take 1 [facility] 100 mg 4-17 tablet by ity of tablet 00:00: mouth in [place] the morning. Branch lisinopriL 0 Yes [id number] 2.5mg Take 1 [facility] 2.5 mg 4-17 tablet by ity of tablet 00:00: mouth in [place] the Medical morning. Branch metoprolol 0 Yes [id number] 25mg Take 1 U nivers tartrate 25 4-17 tablet by ity of mg tablet 00:00: mouth in [facility] 00 the morning Branch and 1 tablet in the evening. blood sugar 0 Yes [id number] Check U nivers diagnostic 4-17 blood ity of strip 00:00: sugar 2 [place] times a Medical day. Branch E11.9. Brand per insurance. Uses ACCU-CHEK machine Lancets 0 Yes [id number] Check Unive rs Misc 4-17 blood ity of 00:00: sugar 2 [place] 00 times a Medical day. Branch E11.9. Brand per insurance. SERTraline 0 Yes [id number] 100mg Take 1 [facility] 100 mg 4-17 tablet by ity of tablet 00:00: mouth in [place] 00 the Medical morning. Branch SERTraline 2022-0 2022- No [id number] 100mg Take 1 [facility] 100 mg 4-17 05-19 tablet by ity of tablet 00:00: 00:00 mouth in [place] 00 :00 the Medical morning. Branch gabapentin 2022- No [id number] 300mg Take 1 [facility] 300 mg 08-05-18 capsule by ity of capsule 00:00: 00:00 mouth in [place] 00 :00 the Medical morning Branch and 1 capsule at noon and 1 capsule in the evening. amiodarone 2022- No [id number] 200mg Take 1 [facility] 200 mg 08-05-18 tablet by ity of tablet 00:00: 00:00 mouth in [place] 00 :00 the Medical morning. Branch apixaban 5 2022- No 5mg Take 1 Univ ers mg tablet 08-0518 tablet by ity of 00:00: 00:00 mouth in [place] 00 :00 the Medical morning Branch and 1 tablet in the evening. Indication s: ATRIAL FIBRILLATI ON atorvastati 2022- No [id number] 40mg Take 1 Univers n 40 mg 08-0518 tablet by ity of tablet 00:00: 00:00 mouth at [place] 00 :00 bedtime. Medical Branch lisinopriL 2022- No [id number] 2.5mg Take 1 Univers 2.5 mg 08-0518 tablet by ity of tablet 00:00: 00:00 mouth in [place] 00 :00 the Medical morning. Branch metoprolol 2022- No [id number] 25mg Take 1 [facility] tartrate 25 08-0518 tablet by it y of mg tablet 00:00: 00:00 mouth in [facility] as 00 :00 the Medical morning Branch and 1 tablet in the evening. blood sugar 2022- No [id number] Check Univers diagnostic 08-05 blood ity of strip 00:00: 00:00 sugar 2 [place] 00 :00 times a Medical day. Branch E11.9. Brand per insurance. Uses ACCU-CHEK machine Lancets 2022- No [id number] Check Univ ers Misc 08-0518 blood ity of 00:00: 00:00 sugar 2 [place] 00 :00 times a Medical day. Branch E11.9. Brand per insurance. blood sugar 2022- No [id number] Check Univers diagnostic 08-05 blood ity of strip 00:00: 00:00 sugar 2 [place] 00 :00 times a Medical day. Branch E11.9. Brand per insurance. Uses ACCU-CHEK machine blood sugar 2022-0 2022- No [id number] Check Univers diagnostic 08-05 blood ity of strip 00:00: 00:00 sugar 2 [place] 00 :00 times a Medical day. Branch E11.9. Brand per insurance. Uses ACCU-CHEK machine blood sugar 2022-0 3- No [id number] Check Univers diagnostic 08-05 blood ity of strip 00:00: 00:00 sugar 2 [place] 00 :00 times a Medical day. Branch E11.9. Brand per insurance. Uses ACCU-CHEK machine amiodarone 2023-0 Yes 200mg Take 1 Univ ers 200 mg 4-12 tablet by ity of tablet 00:00: mouth in [place] 00 the Medical morning. Branch SERTraline 2023-0 Yes 25mg Take 1 Unive rs 25 mg 4-12 tablet by ity of tablet 00:00: mouth in [place] 00 the Medical morning. Branch amiodarone 2023-0 Yes 200mg Take 1 Univ ers 200 mg 4-12 tablet by ity of tablet 00:00: mouth in [place] 00 the Medical morning. Branch SERTraline 2023-0 Yes 25mg Take 1 Unive rs 25 mg 4-12 tablet by ity of tablet 00:00: mouth in [place] 00 the Medical morning. Branch amiodarone 2023-0 Yes 200mg Take 1 Univ ers 200 mg 4-12 tablet by ity of tablet 00:00: mouth in [place] 00 the Medical morning. Branch SERTraline 2023-0 Yes 25mg Take 1 Unive rs 25 mg 4-12 tablet by ity of tablet 00:00: mouth in [place] 00 the Medical morning. Branch amiodarone 2023-0 2023- No 200mg Take 1 Uni vers 200 mg 4-12 -17 tablet by ity of tablet 00:00: 00:00 mouth in [place] 00 :00 the Medical morning. Branch SERTraline 2023-0 2023- No 100mg Take 1 Uni vers 100 mg 4-03 24- tablet by ity of tablet 00:00: 00:00 mouth in [place] 00 :00 the Medical morning. Branch amiodarone 2023-0 2023- No 200mg Take 1 Uni vers 200 mg 07-31 tablet by ity of tablet 00:00: 00:00 mouth in [place] 00 :00 the Medical morning. Branch SERTraline 2022-0 2022- No 100mg Take 1 Uni vers 100 mg 07-31 tablet by ity of tablet 00:00: 00:00 mouth in [place] 00 :00 the Medical morning. Branch amiodarone 2022-0 2022- No 200mg Take 1 Uni vers 200 mg 07-31 tablet by ity of tablet 00:00: 00:00 mouth in [place] 00 :00 the Medical morning. Branch SERTraline 2022-0 2022- No 100mg Take 1 Uni vers 100 mg 07-31 tablet by ity of tablet 00:00: 00:00 mouth in [place] 00 :00 the Medical morning. Branch sodium Yes Topical, Univers hypochlorit -11 BID, First it y of e 0.025% 01:00: dose on (Dakin's) Mon Medical solution 07/29/22 at [facility] h 2000, Until Discontinu ed, Routine iron 2022- No 500mg 500 mg, IV Unive rs sucrose 07-29 Infusion, ity of (VENOFER) 19:15: 23:11 ONCE, [place] 500 mg in 00 :00 Administer Medi dilshad NaCl 0.9% over 2.5 Branch (NS) 250 mL Hours, On infusion 07/29/22 at 1415, For 1 dose iopamidol 2022- No [id number] 80mL 80 mL, Univers (ISOVUE 07-29 Intravenou [...] STAT lactated 2022- No 1000mL at 100 [facility] ers ringers IV 07-29 04-10 mL/hr, ity of infusion 15:30: 15:36 1,000 mL, [place] as 1,000 mL 00 :20 Intravenou Medic al s, ONCE, 1 Branch dose, On 07/29/22 at 1030, Routine acetaminoph Yes 650mg 650 mg, Un anil en 10 Oral, ity of (TYLENOL) 01:52: Q6HPRN, [place] tablet 650 10 Starting Medic al mg on [facility] 07/28/22 at 2052, Until Discontinu ed, Routine, Pain (scale 1-3), Temp > 38 C sodium 2022- No 50meq 50 mEq, [facility] s bicarbonate 07-28 04-09 Slow IV ity of 1 mEq/mL 20:00: 19:38 Push, [place] (8.4 %) 00 :00 ONCE, 1 Medical injection dose, On [place] 50 mEq [place] 07/28/22 at 1500, Routine amiodarone Yes 200mg 200 mg, Uni vers (PACERONE) 07-28 Oral, ity of tablet 200 14:00: DAILY, [place] mg 00 First dose Medical on [facility] 07/28/22 at 0900, Until Discontinu ed, Routine SERTraline Yes 25mg 25 mg, Unive rs (ZOLOFT) 07-28 Oral, ity of tablet 25 14:00: DAILY, [place] mg 00 First dose Medical on [facility] 07/28/22 at 0900, Until Discontinu ed, Routine Sliding Yes Subcutaneo [facility] ers Scale 07-28 us, TID ity of Insulin - 13:00: MEALS+HS, [place] as Lispro 00 First dose Medical (HumaLOG) + on [facility] Fsbg 07/28/22 at Testing 0800, Until Discontinu ed, Routine levETIRAcet 2022- No 500mg 500 mg, U nivers am (KEPPRA) 07-28 04-11 Oral, BID, i ty of tablet 500 13:00: 12:48 First dose [place] mg 00 :43 on [facility] 07/28/22 at Branch 0800, Until Discontinu ed, Routine vancomycin 2022- No 15mg/kg 1,500 mg Univers (VANCOCIN) 07-28 (rounded ity of 1,500 mg in 11:00: 13:55 from 1,380 [place] NaCl 0.9% 00 :31 mg = 15 Medical (NS) 500 mL mg/kg ?92 [facility] VIAL-MATE kg), IV IV Piggyback, piggyback Q24H ABX, 7 doses, First dose (after last modificati on) on [place] 07/28/22 at 0600, Last dose on 08/03/22 [...] :00 ONCE, 1 Medical dose, On Branch [place] 07/28/22 at 0530, Routine NaCl 0.9% 2022- No 500mL at 999 Univ ers (NS) bolus 07-28 mL/hr, 500 it y of infusion 09:54: 11:57 mL, IV [place] 500 mL 00 :00 Piggyback, Medical ONCE, 1 Branch dose, On [place] 07/28/22 at 0500, STAT lactated 2022- No 1000mL at 999 [facility] ers ringers IV 07-28 mL/hr, ity of infusion 08:30: 09:06 1,000 mL, [place] as 1,000 mL 00 :00 Intravenou Medic al s, ONCE, 1 Branch dose, On [place] 07/28/22 at 0330, Routine HEPARIN 2022- No 4000U 4,000 Univers SODIUM 07-28 Units, IV ity of (PORCINE) 07:45: 08:24 Push, [place] 1,000 00 :00 ONCE, 1 Medical UNIT/ML dose, On Branch BOLUS ACS [place] 07/28/22 ORDER SET at 0245, GELA dextrose Yes 250mL 250 mL, IV Un anil 10% (D10W) 07-28 Infusion, ity of bolus 07:32: PRN - SEE [place] infusion 32 INSTRUCTIO Medic al 250 mL NS, Branch Administer over 60 Minutes, Other, If blood glucose is < or = 70 mg/dL and patient is unable to swallow or has mental status changes, Starting on [place] 07/28/22 at 0232
If blood glucose is [...] KIT) 26 Starting Medical injection 1 on [place] Branch 07/28/22 at 0232, Until Discontinu ed, GELA, Blood Glucose < or = 70 mg/dL and patient is NPO, unable to swallow or has mental changes. heparin 2022-0 2022- No 0U/h 0-2,150 Univer s 25,000 09 04-10 Units/hr ity of Units/250 07:30: 14:43 (0-21.5 [place] mL 20 :03 mL/hr), IV Medical (Premixed Infusion, Branc h Bag) in TITRATE, 0.45 % NS Parameters in Admin. Instr., Starting on [place] 07/28/22 at 0230
In itiate dosing:&nb sp; [...] e, Dosing and Testing: &nbs p;FOR [facility], [facility], AND [facility] ONLY &nbs p; - [...] mL vial) 11 :03 on [facility] for 07/28/22 at Branch Rebolusing 0230, Until 07/29/22 at 0943, Routine
Dosing based on aPPT testing parameters (refer to continuous heparin drip order).
ceFEPIme 2022- No 1000mg 1,000 mg, U nivers (MAXIPIME) 07-28 IV ity of 1,000 mg in 07:30: 09:39 Piggyback, [place] NaCl 0.9% 00 :00 ONCE, 1 Medical (NS) 100 mL dose, On Bran ch MINI-BAG [place] 07/28/22 at 0230, Administer over 30 Minutes, 100 mL
Reas on for Anti-Infec tive: Documented Infection< br>Documen yana Infection Site: Skin / Soft Tissue
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 cephALEXin 2022-0 2022- No [id number] 500mg Take 1 Univers (KEFLEX) 07-19 04-11 capsule by ity of 500 mg 00:00: 00:00 mouth 4 [place] capsule 00 :00 (four) Medical times Branch daily. HYDROcodone 2022-0 2022- No [id number] 1{tbl} Take 1 U nivers -acetaminop 07-19-08 tablet by it y of hen (NORCO) 00:00: 04:59 mouth [place] 10-325 mg 00 :00 every 6 Medical tablet (six) Branch hours as needed for Pain (scale 7-10) for up to 7 days. Indication s: acute pain sulfamethox 2022-0 2022- No [id number] 2{tbl} Take 2 Univers azole-trime 07-19-08 tablets by i ty of thoprim 00:00: [...] l tablet every 12 (twelve) hours. polyethylen 2023-0 Yes 17g QD Take 17 g M ethodi e glycol 3-[address] (MIRALAX) 15:57: daily. MIX Ho spita 17 gram 16 WITH 6 OZ l packet OF JUICE OR WATER HYDROcodone 2022-0 Yes [id number] 1{tbl} Q6H Take 1 M ethodi -acetaminop [...] OF JUICE OR WATER HYDROcodone 2022-0 Yes [id number] 1{tbl} Q6H Take 1 M ethodi -acetaminop [...] OF JUICE OR WATER HYDROcodone 2022-0 Yes [id number] 1{tbl} Q6H Take 1 M ethodi -acetaminop [...] OF JUICE OR WATER HYDROcodone 2022-0 Yes [id number] 1{tbl} Q6H Take 1 M ethodi -acetaminop [...] (six) hours as needed for fever. famotidine 2023-0 Yes 20mg Q.5D Take 1 Metho di [...] OF JUICE OR WATER HYDROcodone 2022-0 Yes [id number] 1{tbl} Q6H Take 1 M ethodi -acetaminop [...] OF JUICE OR WATER HYDROcodone 2022-0 Yes [id number] 1{tbl} Q6H Take 1 M ethodi -acetaminop [...] l 100 unit/mL morning. injection (pen) insulin 2023-0 Yes Inject Methodi LISPRO 3-15 under the [...] OF JUICE OR WATER HYDROcodone 2022-0 Yes [id number] 1{tbl} Q6H Take 1 M ethodi -acetaminop [...] OF JUICE OR WATER HYDROcodone 2022-0 Yes [id number] 1{tbl} Q6H Take 1 M ethodi -acetaminop [...] Q12H Infuse Me thodi 1,000 mg in 07-0322 1,[address] sodium 00:00: 04:59 into [...] (twelve) hours for 6 days. vancomycin 2022-0 3- No 1000mg Q12H Infuse Me thodi 1,000 [...] (twelve) hours for 6 days. vancomycin 2022-0 3- No 1000mg Q12H Infuse Me thodi 1,000 [...] 12 (twelve) hours for 6 days. levoFLOXaci No [id number] 500mg QD Take 1 Methodi n 06-[id number] (Levaquin) 00:00: 00:00 (500 mg [facility] 500 MG 00 :00 total) by l tablet mouth daily. levoFLOXaci No [id number] 500mg QD Take 1 Methodi n 06-[id number] (Levaquin) 00:00: 00:00 (500 mg [facility] 500 MG 00 :00 total) by l tablet mouth daily. levoFLOXaci No [id number] 500mg QD Take 1 Methodi n 06-[id number] (Levaquin) 00:00: 00:00 (500 mg [facility] 500 MG 00 :00 total) by l tablet mouth daily. levoFLOXaci No [id number] 500mg QD Take 1 Methodi n 06-[id number] (Levaquin) 00:00: 00:00 (500 mg [facility] 500 MG 00 :00 total) by l tablet mouth daily. levoFLOXaci No [id number] 500mg QD Take 1 Methodi n 06-[id number] (Levaquin) 00:00: 00:00 (500 mg [facility] 500 MG 00 :00 total) by l tablet mouth daily. levoFLOXaci No [id number] 500mg QD Take 1 Methodi n 06-[id number] (Levaquin) 00:00: 00:00 (500 mg [facility] 500 MG 00 :00 total) by l tablet mouth daily. levoFLOXaci No [id number] 500mg QD Take 1 Methodi n 06-[id number] (Levaquin) 00:00: 00:00 (500 mg [facility] 500 MG 00 :00 total) by l tablet mouth daily. levoFLOXaci 0 2023- No [id number] 500mg QD Take 1 Methodi n [id number] (Levaquin) 00:00: 00:00 (500 mg [...] Method i mg tablet 2-19 tablet (5 00:00: mg total) Hospita 00 by mouth [...] cephalexin 2023-0 3- No Method i (KEFLEX) 06-05-15 st 500 MG 00:00: 00:00 Hospita capsule 00 :00 l cephalexin 3-0 2023- No Method i (KEFLEX) 06-05-15 st 500 MG 00:00: 00:00 Hospita capsule 00 :00 l cephalexin 3-0 2023- No Method i (KEFLEX) 06-05-15 st 500 MG 00:00: 00:00 Hospita capsule 00 :00 l cephalexin 3-0 3- No Method i (KEFLEX) 06-05-15 st 500 [...] 00:00: Hospita capsule 00 l sennosides- 2022-0 3- No 2{tbl} Take 2 M ethodi docusate 24 -[address] sodium 00:00: 00:00 mouth. Hospita (SENOKOT-S) 00 :00 l 8.6-50 mg per tablet sennosides- 2022-0 2023- No 2{tbl} Take 2 M ethodi docusate 1-24 03-[address] sodium 00:00: 00:00 [...] :00 l 8.6-50 mg per tablet insulin 3- No 14U QD Inject Methodi detemir 05-[address] U-100 00:00: 05:59 (14 [...] F) for up to 30 days. benzonatate 2022-0 2022- No 100mg Q6H Take 1 Me [...] times a day for 30 days. polyethylen 2022-0 2022- No 17g QD Take 17 g Methodi e glycol 05-14-[address] (MIRALAX) 00:00: 05:59 daily for Ho spita 17 gram 00 :00 30 days. l packet senna 0 2022- No 2{tbl} Q24H Take 2 Methodi (SENOKOT) 05-14-[address] 8.6 mg 00:00: 05:59 mouth Hospita tablet 00 :00 daily as l needed for constipati on for up to 30 days. sertraline 2022- No 50mg QD Take 1 Meth greer (ZOLOFT) 50 05-14- tablet (50 s t MG tablet 00:00: 05:59 mg total) Ho spita 00 :00 by mouth l daily for 30 days. lisinopriL 2022- No 2.5mg QD Take 1 Met hodi (PRINIVIL) 05-14- tablet st 2.5 mg 00:00: 05:59 (2.5 [...] 100mg Q6H Take 1 Me thodi (TESSALON) 05-14-[address] 100 MG 00:00: 05:59 (100 [...] mouth l daily for 30 days. lisinopriL 2022-2022- No 2.5mg QD Take 1 Met hodi (PRINIVIL) 05-14- tablet st 2.5 mg 00:00: 05:59 (2.5 [...] times a day for 30 days. famotidine 0 2022- No 20mg Q.5D Take 1 Meth greer (PEPCID) 20 05-14- tablet (20 s t MG tablet 00:00: 05:59 mg total) Ho spita 00 :00 by mouth 2 l (two) times a day for 30 days. polyethylen 2022-0 2022- No 17g QD Take 17 g [...] F) for up to 30 days. benzonatate 0 2022- No 100mg Q6H Take 1 Me thodi (TESSALON) 05-[address] 100 MG 00:00: 05:59 (100 mg Hospita capsule 00 :00 total) by l mouth every 6 (six) hours as needed for cough for up to 30 days. docusate 2023-0 2023- No 100mg Q.5D Take 1 Metho di [...] 100mg Q6H Take 1 Me thodi (TESSALON) 05-14-[address] 100 MG 00:00: 05:59 (100 [...] 2.5mg QD Take 1 Met hodi (PRINIVIL) 05-14- tablet st 2.5 mg 00:00: 05:59 (2.5 [...] l mouth daily for 30 days. cefTRIAXone 2022-2022- No 2g Q12H Infuse 2 g Methodi (ROCEPHIN) 05-[address] 2 g in 100 00:00: 05:59 venous [facility] ML Mini-Bag 00 :00 catheter l Plus every 12 (twelve) hours for 10 days. HYDROcodone 3-0 2022- No [id number] 1{tbl} Q6H Take 1 Methodi -acetaminop 05-[address] [facility] ([facility]) 00:00: 05:59 mouth [facility] 10-325 [...] for 10 days. HYDROcodone 2022-0 2022- No [id number] 1{tbl} Q6H Take 1 Methodi -acetaminop 05-[address] [facility] ([facility]) 00:00: 05:59 mouth [facility] 10-325 [...] (twelve) hours for 10 days. HYDROcodone 2023-0 2022- [place] [id number] 1{tbl} Q6H Take 1 Methodi -acetaminop 05-14- tablet by [facility] ([facility]) 00:00: 05:59 mouth [facility] 10-325 mg 00 :00 every 6 l [...] for 10 days. HYDROcodone 2022-0 2022- No [id number] 1{tbl} Q6H Take 1 Methodi -acetaminop 05-14- tablet by [facility] ([facility]) 00:00: 05:59 mouth [facility] 10-325 [...] for 10 days. HYDROcodone 2022-0 2022- [place] [id number] 1{tbl} Q6H Take 1 Methodi -acetaminop 05-14 tablet by [employer]) 00:00: 05:59 mouth [facility] 10-325 mg 00 :00 every 6 l per tablet (six) hours as needed for moderate pain or severe pain for up to 7 days .acute pain. Max Daily Amount: 4 tablets cefTRIAXone 2023-0 2023- No 2g Q12H Infuse 2 g Methodi (ROCEPHIN) 05-14- into a st 2 g in 100 00:00: 05:59 venous [facility] ML Mini-Bag 00 :00 catheter l Plus every 12 (twelve) hours for 10 days. HYDROcodone 2022-0 2022- [place] [id number] 1{tbl} Q6H Take 1 Methodi -acetaminop 05-14- tablet by st [employer]) 00:00: 05:59 mouth [facility] 10-325 [...] 12 (twelve) hours for 10 days. [place]DRO[place]one 2023-[place]- [place] [id number] 1{tbl} Q6H Take 1 Methodi -acetaminop 05-14 [...] hours for 10 days. HYDROcodone 2022- No [id number] 1{tbl} Q6H Take 1 Methodi -acetaminop 05-[address] [facility] ([facility]) 00:00: 05:59 mouth [facility] 10-325 [...] for 30 days. insulin 2021-04- No 0U [id number] Inject M ethodi lispro 05-25 [id number] 0-[address] (ADMELOG) 00:00: 05:59 3D [...] for 30 days. insulin 2021-04- No 0U [id number] Inject M ethodi lispro 05-25 [id number] 0-[address] (ADMELOG) 00:00: 05:59 3D [...] for 30 days. insulin 2021-04- No 0U [id number] Inject M ethodi lispro - [id number] 0-[address] (ADMELOG) 00:00: 05:59 3D [...] for 30 days. insulin 2021-04- No 0U [id number] Inject M ethodi lispro 05-25 [id number] 0-[address] (ADMELOG) 00:00: 05:59 3D [...] for 30 days. insulin 2021-04- No 0U [id number] Inject M ethodi lispro 05-25 [id number] 0-[address] (ADMELOG) 00:00: 05:59 3D [...] for 30 days. insulin 2021-04- No 0U [id number] Inject M ethodi lispro 05-25 [id number] 0-[address] (ADMELOG) 00:00: 05:59 3D [...] for 30 days. insulin 2021-04- No 0U [id number] Inject M ethodi lispro 05-25 [id number] 0-[address] (ADMELOG) 00:00: 05:59 3D [...] for 30 days. insulin 2021-04- No 0U [id number] Inject M ethodi lispro 05-25 [id number] 0-[address] (ADMELOG) 00:00: 05:59 3D [...] 20U QD Inject 0.2 Met hodi detemir 01-24 mL (20 st U-100 00:00: 00:00 Units [...] QD Inject 0.2 Met hodi detemir 2-30 01-24 mL (20 st U-100 00:00: 00:00 Units [...] Take 1 Method i (ELIQUIS) 5 2-30 01-07 tablet (5 st mg tablet 00:00: 05:59 mg total) [facility] 00 :00 by mouth 2 l (two) times a day for 7 days. apixaban 2021-04- No 5mg Q.5D Take 1 [facility] i (ELIQUIS) 5 2-30 01-07 tablet (5 st mg tablet 00:00: 05:59 mg total) [facility] 00 :00 by mouth 2 l (two) times a day for 7 days. apixaban 2021-04- No 5mg Q.5D Take 1 [facility] (ELIQUIS) 5 2-30 01-07 tablet (5 st mg tablet 00:00: 05:59 [...] 30 injection days. insulin 2021-04- No 0U [id number] Inject M ethodi lispro 05-14- [id number] 0-[address] (ADMELOG) 00:00: 00:00 3D [...] 30 injection days. insulin 2021-04- No 0U [id number] Inject M ethodi lispro 05-14 [id number] 0-[address] (ADMELOG) 00:00: 00:00 3D [...] 30 injection days. insulin 2021-04- No 0U [id number] Inject M ethodi lispro 05-14 [id number] 0-[address] (ADMELOG) 00:00: 00:00 3D [...] 30 injection days. insulin 2021-04- No 0U [id number] Inject M ethodi lispro 05-14 [id number] 0-[address] (ADMELOG) 00:00: 00:00 3D [...] 30 injection days. insulin 2021-04- No 0U [id number] Inject M ethodi lispro 05-14 [id number] 0-[address] (ADMELOG) 00:00: 00:00 3D [...] 30 injection days. insulin 2021-04- No 0U [id number] Inject M ethodi lispro 05-14 [id number] 0-[address] (ADMELOG) 00:00: 00:00 3D [...] 30 injection days. insulin 2021-04 No 0U [id number] Inject M ethodi lispro 05-14- [id number] 0-[address] (ADMELOG) 00:00: 00:00 3D [...] 30 injection days. insulin 2021-04 No 0U [id number] Inject M ethodi lispro 05-14 [id number] 0-[address] (ADMELOG) 00:00: 00:00 3D [...] metFORMIN 2021- No metformin Me thodi (GLUCOPHAGE 12-14 0823 1,[address] ) 1,000 mg 10:46: [...] oral route for 90 days. metFORMIN 2021- Yes metformin Met hodi (GLUCOPHAGE 8-26 1,000 [...] for 90 days.Stren gth: 1,000 mg metFORMIN 0 2022- No metformin [facility] (GLUCOPHAGE 826 01-24 1,[address] ) 1,000 mg 00:00: 00:00 tablet [facility] :00 Take 1 l tablet twice a day by oral route for 90 days.Stren gth: 1,000 mg metFORMIN 2021-0 2022- No metformin [facility] (GLUCOPHAGE 8-26 01-24 1,[address] ) 1,000 mg 00:00: 00:00 tablet [facility] tablet 00 :00 Take 1 l tablet twice a day by oral route for 90 days.Stren gth: 1,000 mg metFORMIN 2021-0 2022- No metformin [facility] (GLUCOPHAGE 12-1424 1,[address] ) 1,000 mg 00:00: [...] for 90 days.Stren gth: 1,000 mg nicotine 2021-2021- No 1{patch QD Place 1 [...] daily for l 30 days. nicotine 202-0 202- No 1{patch QD Place 1 Me thodi [...] daily for l 30 days. nicotine 2021- 2022- No 1{patch QD Place 1 Me [...] a capsule day for 10 days. nitrofurant No 100mg Q.5D Take 1 [facility] oin, 11-[address] macrocrysta 00:00: 04:59 (100 mg [facility] l-monohydra 00 :00 total) by l te, mouth 2 (MACROBID) (two) 100 MG times a capsule day [place] 10 [place] [id number] 50mg Q6H Take 1 Metho di (ULTRAM) 50 11-08 tablet (50 s t mg tablet 00:00: 04:59 mg total) [facility] 00 :00 by mouth l every 6 (six) hours as needed for moderate pain for up to 7 [place] [id number] 50mg Q6H Take 1 Metho di (ULTRAM) 50 11-08 tablet (50 s t mg tablet 00:00: 04:59 mg total) [facility] 00 :00 by mouth l every 6 (six) hours as needed for moderate pain for up to 7 [place] [id number] 50mg Q6H Take 1 Metho di (ULTRAM) 50 11-08- tablet (50 s t mg tablet 00:00: 04:59 mg total) [facility] 00 :00 by mouth l every 6 (six) hours as needed for moderate pain for up to 7 [place] [id number] 50mg Q6H Take 1 Metho di (ULTRAM) 50 11-08- tablet (50 s t mg tablet 00:00: 04:59 mg total) [facility] 00 :00 by mouth l every 6 (six) hours as needed for moderate pain for up to 7 [place] [id number] 50mg Q6H Take 1 Metho di (ULTRAM) 50 11-08- tablet (50 s t mg tablet 00:00: 04:59 mg total) [facility] sp[facility] 00 :00 by mouth l every 6 (six) hours as needed for moderate pain for up to 7 [place] [id number] 50mg Q6H Take 1 Metho di (ULTRAM) 50 -08 11-29 tablet (50 s t mg tablet 00:00: 04:59 mg total) [facility] 00 :00 by mouth l every 6 (six) hours as needed for moderate pain for up to 7 days .acute pain. traMADoL 2021- No [id number] 50mg Q6H Take 1 Metho di (ULTRAM) 50 7- 07-29 tablet (50 s t mg tablet 00:00: 04:59 mg total) [facility] 00 :00 by mouth l every 6 (six) hours as needed for moderate pain for up to 7 days .acute pain. traMADoL 2021- No [id number] 50mg Q6H Take 1 Metho di (ULTRAM) 50 7-08 11-29 tablet (50 s t mg tablet 00:00: 04:59 mg total) [facility] 00 :00 by mouth l every 6 (six) hours as needed for moderate pain for up to 7 days .acute pain. traMADoL 2021- No [id number] 50mg Q6H Take 1 Metho di (ULTRAM) [...] 00 l x 5/16 syringe [facility] 2021-0 2022- No Q.25D 4 (four) [facility] Insulin 4-19 -[address] Syringe 1 00:00: 00:00 day. [facility]ospita mL 30 gauge 00 :00 l x 5/16 syringe [facility] 2021-0 2022- No Q.25D 4 (four) [facility] Insulin 4-19 -[address] Syringe 1 00:00: 00:00 day. [facility]osp[facility] mL 30 gauge 00 :00 l x 5/16 syringe [facility] 2021-0 2022- No Q.25D 4 (four) [facility] Insulin 4-19 -[address] Syringe 1 00:00: 00:00 day. [facility]osp[facility] mL 30 gauge 00 :00 l x 5/16 syringe [facility] 2021-0 2022- No Q.25D 4 (four) [facility] Insulin 08-07-[address] Syringe 1 00:00: 00:00 day. [facility]ospita mL 30 gauge 00 :00 l x 5/16 syringe [facility] 3- No Q.25D 4 (four) [facility] Insulin 08-07-[address] Syringe 1 00:00: 00:00 day. [facility]ospita mL 30 gauge 00 :00 l x 5/16 syringe [facility] 0 202- No Q.25D 4 (four) Me thodi [...] 2021- No INJECT 5 Metho di U-100 -19 11-[address] Insulin 100 00:00: 00:00 [...] 0Ordered: 2ELISA Garcia t: 2 Lantus 100 2022-0 No 10{unit Lantus 100 2.16.84 UNIT/ML 06-29 s} UNIT/ML 0.1.113 Subcutaneou 00:00: Subcutaneo 883.4.2 s Solution 00 us Solution; 10 units qhs. for 0 days Quantity: 10 {Millilite r}Refills: 0Ordered: 2Willis, [employer] t: 2 True Metrix 0 No 1{Each} True Please 2 .16.84 Blood - Metrix substitut 0.1.113 Glucose 00:00: Blood e prn. 883.4.2 Test In 00 Glucose Vitro Strip Test In Vitro Strip; 1 (one) Each bid for 0 days Quantity: 60 {Each}Refi lls: 5Ordered: 2Willis, [facility] t: 2Comments: Please substitute prn. atorvastati Yes Take by Met hodi n (LIPITOR) 06-[address] 20 mg 00:00: Hospita tablet 00 l atorvastati Yes Take by Met [facility] n (LIPITOR) 06-[address] 20 mg 00:00: Hospita tablet 00 l atorvastati 2021- No Take by Me thodi n (LIPITOR) 06-[address] 20 mg 00:00: 00:00 Hospita tablet 00 :00 l atorvastati 0 2021- No Take by Me thodi n (LIPITOR) 06-[address] 20 mg 00:00: 00:00 [facility]ospita tablet 00 :00 l atorvastati 0 2021- No Take by Me thodi n (LIPITOR) 06-[address] 20 mg 00:00: 00:00 [facility]ospita tablet 00 :00 l atorvastati 0 2021- No Take by Me thodi n (LIPITOR) 06-[address] 20 mg 00:00: 00:00 [facility]ospita tablet 00 :00 l atorvastati 2021- No Take by Me thodi n (LIPITOR) 06-[address] 20 mg 00:00: 00:00 [facility]ospita tablet 00 :00 l atorvastati 2021- No Take by Me arturodi n (LIPITOR) 06-[address] 20 mg 00:00: 00:00 [facility]ospita tablet 00 :00 l atorvastati 2021- No Take by Me siddiquiodi n (LIPITOR) 06-[address] 20 mg 00:00: 00:00 [facility]ospita tablet 00 :00 l atorvastati 2021- No Take by Me siddiquiodi n (LIPITOR) 06-[address] 20 mg 00:00: 00:00 Hospita tablet 00 :00 l metFORMIN 2020-04- No Medication 500mg Q.5D Take 1 [facility] (GLUCOPHAGE 005-03 refill tablet by Hub[facility] ) 500 mg 00:00: 23:59 mouth 2 tablet 00 :00 times daily (with meals) for 90 days. metFORMIN 2020-04- No Medication 500mg Q.5D Take 1 [facility] (GLUCOPHAGE 005-03 refill tablet by Hubbub ) 500 mg 00:00: 23:59 mouth 2 tablet 00 :00 times daily (with meals) for 90 days. cephalexin 2020- No 500mg [id number] Take 1 [facility] (KEFLEX) 01-02 [id number] capsule s t 500 MG 00:00: 04:59 3D (500 mg Hospita capsule 00 :00 total) by l mouth 3 (three) times a day for 7 days. cephalexin 2020- No 500mg Q.[id number] Take 1 [facility] (KEFLEX) 01-02 [id number] capsule s t 500 MG 00:00: 04:59 [...] tab, PO, l tablet 21:52: Q8H, PRN [facility] 00 Pain, Take with food, X 10 day, # 30 tab, 0 Refill(s) Flexeril 2015-04 No Notes: [facility] 0-27 (Same As: l 20:33: Flexeril) [facility] 00 Motrin 2015-04 No Notes: [facility] 0-27 (Same as: l 20:33: Motrin) [facility] 00 "Do Not Crush" Give with food. 24 HR No Notes: [facility] Metformin 9-15 (Same as: l hydrochlori 14:00: Glucophage [facility] de 500 MG 00 XR) "Do Extended Not Crush" Release Tablet Azithromyci No Notes: [place] betty n 9-15 Take 1 l 14:00: hour [place] 00 before or 2 hours after meals. (Same As: Zithromax) Prednisone No Notes: Memor ia 9-15 Take with l 14:00: food. [place] 00 24 HR Yes 1,000 mg = Memori a Metformin 9-15 2 tab, PO, l hydrochlori 00:46: BID, # 120 [place] de 500 MG 10 tab, 0 Extended Refill(s), Release Pharmacy: Tablet [facility] [id number] [facility] 120 ACTUAT Yes 2 puff, [place] betty Albuterol 9-15 INHALATION l 0.1 00:46: , QID, # 1 [facility] MG/ACTUAT / 00 ea, 0 Ipratropium Refill(s), [place] [facility]: [id number] MG/ACTUAT [facility] Metered Dose Inhaler [Combivent 20/100] predniSONE Yes 20 mg = 1 Me moria 20 mg oral 9-15 tab, PO, l tablet 00:46: Daily, X 3 Keesha nn 00 day, # 3 tab, 0 Refill(s), Pharmacy: [facility] [id number] [facility] Insulin No 60 units) [place] betty regular 14 WASTE: F/P l 21:18: - Black; E [facility] Trash Bin Stable for 28 days at room temperatur e Expires in days from ____Date Glucagon No 1 mg, Memoria 9-14 Route: IM, l 21:18: Drug form: [place] 00 PDR/INJ, PRN, Dosing Weight 88.21, kg, PRN Blood Glucose Results, Start date: 01/03/16 16:18:00 CDT, Duration: 30 day, Stop date: 02/02/16 16:17:00 CDT Dextrose No 12.5 gm, Memor ia 50% Syringe 01-02 25 mL, l 21:18: Route: [place] IVP, Drug Form: INJ, Dosing Weight 88.21, kg, PRN, PRN Blood Glucose Results, Start date: 01/03/16 16:18:00 CDT, Duration: 30 day, Stop date: 02/02/16 16:17:00 CDT Albuterol No Notes: Memori a 0.833 MG/ML 01-02 (Same as: l / 19:00: Duoneb) Ipratropium 00 [place] 0.167 MG/ML Inhalant Solution Enoxaparin No Notes: Memor ia -14 (Same as: l 14:00: Lovenox) [facility] 00 Ceftriaxone No Notes: [place] betty -14 (Same As: l 14:00: Rocephin). Use with [...] -14 (Same as: l Flush 13:53: BD [place] Posiflush) BD Normal No Notes: Memori a Saline -14 (Same as: l Flush 13:52: BD [place] 00 Posiflush) Albuterol No Notes: SEE Me moria 0.83 MG/ML 9-14 RT l Inhalant 13:40: DOCUMENTAT Her mckeon Solution 00 ION (Same as: Proventil) Azithromyci No Notes: [place] betty n -14 Take 1 l 13:40: hour [facility] before or 2 hours after meals. (Same As: Zithromax) methylPREDN No Notes: [place] betty ISolone 01-02 (Same l SODium 08:01: as:Solu-ME Keesha nn SUCCinate 00 DROL, A-Methapre d) Saline No Notes: [facility] Flush 0.9% 01-02 (Same as: l 08:01: BD [place] Posiflush) 200 ACTUAT No Notes: Memor ia Albuterol 830 (albuterol l 0.09 20:00: 90 [facility] MG/ACTUAT 00 microgram/ Metered inh 6.7gm Dose [...] PO, l hydrochlori 19:05: BID, # 120 [facility] de 500 MG 00 tab, 0 Extended Refill(s) Release Tablet Clindamycin No Notes: [place] betty 8-30 (Same As: l 19:03: Cleocin) Tylenol No Notes: Do Memor ia 8-30 not exceed l 17:51: 4 gm/day. [place] (Same as: Tylenol) Insulin No 60 units) [...] / 12-18 (Same as: l Hydrocodone 06:19: [place] Keesha nn Bitartrate 00 325/5) Do 5 MG Oral not exceed Tablet 4gm/day of [[place] acetaminop 5/325] hen. Insulin No Notes: [facility]oria regular 12-12 (Same as: l 05:07: Humulin R and NovoLIN R) WASTE: F/P - Black; E - [facility] Trash Bin (Do not shake) Ativan No 2 mg, [facility] 12-12 Route: PO, l 04:14: Drug form: TAB, ONCE, Dosing Weight 93.182, kg, Priority: [...] daily with breakfast and dinner. Immunizations Ordered Filled Immunization Date Status Comments [facility] e Immunization Name Name Pneumococcal 2022-04-19 Completed [facility] 20-valent Conjugate 00:00:00 Hospi amber Vaccine FLUCELVAX QUAD PF 2022-04-[address] 00:00:00 Hospital Pneumococcal 2022-04-19 Completed [facility] 20-valent Conjugate 00:00:00 Hospi amber Vaccine FLUCELVAX QUAD PF 2022-04-[address] 00:00:00 Hospital Pneumococcal 2022-04-19 Completed [facility] 20-valent Conjugate 00:00:00 Hospi amber Vaccine FLUCELVAX QUAD PF 2022-04-[address] 00:00:00 Hospital Pneumococcal 2022-04-19 Completed [facility] 20-valent Conjugate 00:00:00 Hospi amber Vaccine FLUCELVAX QUAD 2022-04-[address] 00:00:00 [facility] Pneumococcal 2022-04-19 Completed [facility] 20-valent Conjugate 00:00:00 Hospi amber Vaccine FLUCELVAX QUAD 2022-04-[address] 00:00:00 Hospital Pneumococcal 2022-04-19 Completed [facility] 20-valent Conjugate 00:00:00 Hospi amber Vaccine FLUCELVAX QUAD 2022-04-[address] 00:00:00 Hospital Pneumococcal 2022-04-19 Completed [facility] 20-valent Conjugate 00:00:00 Hospi amber Vaccine FLUCELVAX QUAD 2022-04-[address] 00:00:00 Hospital Pneumococcal 2022-04-19 Completed [facility] 20-valent Conjugate 00:00:00 Hospi amber Vaccine FLUCELVAX QUAD 2022-04-[address] 00:00:00 [facility] TDAP 2021-09-30 Completed [facility] 00:00:00 [facility] TDAP 2021-09-30 Completed [facility] 00:00:00 [facility] TDAP 2021-09-30 Completed [facility] 00:00:00 [facility] TDAP 2021-09-30 Completed [facility] 00:00:00 [facility] TDAP 2021-09-30 Completed [facility] 00:00:00 [facility] TDAP 2016-12-31 Completed [facility] 00:00:00 [facility] TDAP 2016-12-31 Completed [facility] 00:00:00 [facility] TDAP 2016-12-31 Completed [facility] 00:00:00 [facility] TDAP 2016-12-31 Completed [facility] 00:00:00 [facility] TDAP 2016-12-31 Completed [facility] 00:00:00 [facility] pneumococcal 2016-01-04 Completed [facility] Her mckeon 23-valent vaccine 01:30:00 influenza virus 2016-01-04 [facility], 01:26:00 inactivated Vital Signs Vital Name Observation Time Observation Value Comments Source Systolic blood 2022-11-06 96 mm[Hg] [facility] pressure 18:56:00 [facility] Diastolic blood 2022-11-06 65 mm[Hg] University o f pressure 18:56:00 [facility] Heart rate 2022-11-06 56 /min [facility] 18:56:00 [facility] Respiratory rate 2022-11-06 18 /min [facility] 18:56:00 [facility] Body height 2022-11-06 121.9 cm [facility] 18:56:00 [facility] Systolic blood 2022-11-06 96 mm[Hg] [facility] of pressure 18:21:00 [facility] Diastolic blood 2022-11-06 56 mm[Hg] University o f pressure 18:21:00 [facility] Heart rate 2022-11-06 56 /min [facility] 18:21:00 [facility] Respiratory rate 2022-11-06 18 /min [facility] 18:21:00 [facility] Body height 2022-11-06 121.9 cm University [facility] 18:21:00 [facility] Body weight 2022-11-06 86.183 kg [facility] 18:21:00 [facility] BMI 2022-11-06 57.98 kg/m2 [facility] 18:21:00 [facility] Oxygen saturation 2022-11-06 96 /min [facility] Arterial blood 18:21:00 [facility] Pulse oximetry [place] Systolic blood 2022-09-13 113 mm[Hg] [facility] pressure 03:30:00 [facility] Diastolic blood 2022-09-13 59 mm[Hg] University o f pressure 03:30:00 [facility] Heart rate 2022-09-13 62 /min [place] of 03:30:00 [facility] Respiratory rate 2022-09-13 17 /min [facility] of 03:30:00 [facility] Oxygen saturation 2022-09-13 96 /min [facility] of in Arterial blood 03:30:00 [facility] by Pulse oximetry [facility] Body temperature 2022-09-13 37.11 Jaqueline University of 02:29:00 [facility] Body height 2022-09-13 121.9 cm University of 02:29:00 [facility] Body weight 2022-09-13 87.544 kg [facility] 02:29:00 [facility] BMI 2022-09-13 58.89 kg/m2 [facility] of 02:29:00 [facility] Systolic blood 2022-09-12 100 mm[Hg] [facility] of pressure 18:47:00 [facility] Diastolic blood 2022-09-12 67 mm[Hg] University o f pressure 18:47:00 [facility] Heart rate 2022-09-12 58 /min [facility] of 18:47:00 [facility] Body temperature 2022-09-12 36.17 Jaqueline [facility] 18:47:00 [facility] Body weight 2022-09-12 87.544 kg University of 18:47:00 [facility] BMI 2022-09-12 58.89 kg/m2 [facility] 18:47:00 [facility] Oxygen saturation 2022-09-12 97 /min [place] of in Arterial blood 18:47:00 [facility] by Pulse oximetry [facility] Systolic blood 2022-08-14 122 mm[Hg] University of pressure 07:31:00 [facility] Diastolic blood 2022-08-14 55 mm[Hg] University o f pressure 07:31:00 [facility] Heart rate 2022-08-14 55 /min [facility] 07:31:00 [facility] Respiratory rate 2022-08-14 15 /min [facility] 07:31:00 [facility] Oxygen saturation 2022-08-14 94 /min [facility] of in Arterial blood 07:31:00 [facility] by Pulse oximetry [facility] Body temperature 2022-08-14 37 Jaqueline [place] of 05:10:00 [facility] Body height 2022-08-14 121.9 cm "without my University of 05:10:00 legs" [facility] Body weight 2022-08-14 81.647 kg University of 05:10:00 [facility] BMI 2022-08-14 54.93 kg/m2 University of 05:10:00 [facility] Systolic blood 2022-08-05 175 mm[Hg] University of pressure 18:25:00 [facility] Diastolic blood 2022-08-05 71 mm[Hg] University o f pressure 18:25:00 [facility] Heart rate 2022-08-05 60 /min University of 18:24:00 [facility] Body temperature 2022-08-05 36.67 Jaqueline University of 18:24:00 [facility] Respiratory rate 2022-08-05 18 /min University of 18:24:00 [facility] Body height 2022-08-05 121.9 cm University of 18:24:00 [facility] Oxygen saturation 2022-08-05 100 /min [facility] of in Arterial blood 18:24:00 [facility] by Pulse oximetry [facility] Systolic blood 2022-07-31 130 mm[Hg] University of pressure 21:05:00 [facility] Diastolic blood 2022-07-31 47 mm[Hg] University o f pressure 21:05:00 [facility] Heart rate 2022-07-31 61 /min [place] of 21:05:00 [facility] Body temperature 2022-07-31 36.83 Jaqueline [facility] 21:05:00 [facility] Respiratory rate 2022-07-31 16 /min [facility] of 21:05:00 [facility] Oxygen saturation 2022-07-31 99 /min [place] of in Arterial blood 21:05:00 [facility] by Pulse oximetry [facility] Body height 2022-07-29 [facility] Body weight 2022-07-28 92 kg [facility] 07:00:00 [facility] BMI 2022-07-28 61.89 kg/m2 [facility] 07:00:00 [facility] Systolic blood 2022-07-19 116 mm[Hg] [facility] of pressure 06:20:00 [facility] Diastolic blood 2022-07-19 82 mm[Hg] University o f pressure 06:20:00 [facility] Heart rate 2022-07-19 54 /min [facility] 06:20:00 [facility] Body temperature 2022-07-19 36.5 Jaqueline [facility] 06:20:00 [facility] Respiratory rate 2022-07-19 16 /min [facility] 06:20:00 [facility] Oxygen saturation 2022-07-19 95 /min [facility] in Arterial blood 06:20:00 [facility] by Pulse oximetry [place] Body height 2022-07-19 121.9 cm [facility] 02:38:00 [facility] Body weight 2022-07-19 79.379 kg [facility] 02:38:00 [facility] BMI 2022-07-19 53.40 kg/m2 University 02:38:00 [facility] Temperature 2021-06-29 97 [degF] Method: Oral [id number] 8 13:17:12 3.4.2 Pulse 2021-06-29 77 /min Pattern: [id number] 8 13:17:12 Regular 3.4.2 Respiration Rate 2021-06-29 18 /min Pattern: 2.16.840.1. 17211 13:17:12 Unlabored 3.4.2 BP Systolic 2021-06-29 139 mm[Hg] Patient [id number] 8 13:17:12 Position: 3.4.2 Sitting; Cuff Location: Left Arm; Cuff Size: Standard BP Diastolic 2021-06-29 82 mm[Hg] Patient [id number] 8 13:17:12 Position: 3.4.2 Sitting; Cuff Location: Left Arm; Cuff Size: Standard Systolic blood 2022-07-03 122 mm[Hg] [facility] pressure 17:14:00 Hospital Diastolic blood 2022-07-03 57 mm[Hg] [facility] pressure 17:14:00 Hospital Heart rate 2022-07-03 64 /min [facility] 17:14:00 Hospital Body temperature 2022-07-03 37 Jaqueline [facility] 16:20:31 [facility] Respiratory rate 2022-07-03 21 /min [facility] 16:20:31 Hospital Oxygen saturation 2022-07-03 98 /min [facility] in Arterial blood 16:20:31 [facility] by Pulse oximetry Body height 2022-06-29 170.2 cm [facility] 02:00:00 [facility] Body weight 2022-06-28 81.149 kg [facility] 12:00:00 [facility] BMI 2022-06-28 28.02 kg/m2 [facility] 12:00:00 Hospital Systolic blood 2021-12-14 140 mm[Hg] [facility] pressure 16:16:14 Hospital Diastolic blood 2021-12-14 72 mm[Hg] [facility] pressure 16:16:14 Hospital Heart rate 2021-12-14 74 /min [facility] 16:16:14 Hospital Body temperature 2021-12-14 36.22 Jaqueline [facility] 16:16:14 Hospital Respiratory rate 2021-12-14 20 /min [facility] 16:16:14 Hospital Oxygen saturation 2021-12-14 100 /min [facility] in Arterial blood 16:16:14 Hospital by Pulse oximetry Body height 2021-12-11 170.2 cm [facility] 22:35:00 Hospital Body weight 2021-12-11 88.451 kg [facility] 22:35:00 Hospital BMI 2021-12-11 30.54 kg/m2 [facility] 22:35:00 [facility] Systolic blood 2021-02-02 153 mm[Hg] [facility] pressure 16:00:00 Diastolic blood 2021-02-02 79 mm[Hg] [facility] h pressure 16:00:00 Heart rate 2021-02-02 84 /min [facility] 16:00:00 Body temperature 2021-02-02 36.67 Jaqueline [facility] 16:00:00 Respiratory rate 2021-02-02 18 /min [facility] 16:00:00 Oxygen saturation 2021-02-02 97 /min [facility] lt in Arterial blood 16:00:00 by Pulse oximetry Body height 2021-02-02 177.8 cm [facility] 14:44:00 Body weight 2021-02-02 81.647 kg [facility] 14:44:00 BMI 2021-02-02 25.83 kg/m2 [facility] 14:44:00 Temperature Oral 2016-02-16 98 F [facility] rmann (F) 02:05:00 Respitory Rate 2016-02-16 [facility] 02:05:00 Heart Rate 2016-02-16 [facility] n 02:05:00 Systolic (mm Hg) 2016-02-16 [facility] 02:05:00 Diastolic (mm Hg) 2016-02-16 [facility] 02:05:00 Temperature Oral 2016-02-15 98.5 F [facility] rmann (F) 20:23:00 Height 2016-02-15 170.18 cm [...] 10:22:00 Temperature Oral 2015-12-19 98.3 F [facility] r[facility] (F) 10:22:00 Heart Rate 2015-12-19 [facility] [...] Larry n 03:33:00 Systolic (mm Hg) 2015-12-19 [facility] rmann 03:33:00 Diastolic (mm Hg) 2015-12-19 [facility] ermann 03:33:00 Respitory Rate 2015-12-13 [facility]ie 10:42:00 Systolic (mm Hg) 2015-12-13 [facility] rmann 10:42:00 Diastolic (mm Hg) 2015-12-13 [facility] ermann 10:42:00 Heart Rate 2015-12-13 [facility] 10:42:00 Systolic (mm Hg) 2015-12-13 [facility] rmann 08:15:00 Diastolic (mm Hg) 2015-12-13 [facility] ermann 08:15:00 Respitory Rate 2015-12-13 [facility]ie 08:15:00 Heart Rate 2015-12-13 Ronni Bachan n 08:15:00 BMI Calculated 2015-12-13 [facility] richie 03:44:00 Weight 2015-12-13 Ronni Bachan n 03:44:00 Height 2015-12-13 170.18 cm Ronni Bachan n 03:44:00 Systolic (mm Hg) 2015-12-13 [facility] rmann 03:44:00 Diastolic (mm Hg) 2015-12-13 [facility] ermann 03:44:00 Respitory Rate 2015-12-13 [facility] Isreal richie 03:44:00 Heart Rate 2015-12-13 Ronni Bachan n 03:44:00 Temperature Oral 2015-12-13 98.8 F [facility] rmann (F) 03:44:00 Procedures Procedure Date / Time Performing Clinician Source Performed HOME HEALTH - OTHER 2022-09-25 05:01:00 Doctor Unassigned, No [facility] [place] Name [facility] EKG-12 LEAD 2022-09-13 03:45:38 Hui Paez [facility] BASIC METABOLIC PANEL 2022-09-13 02:46:00 Hui Paez [facility] [place] (NA, K, CL, CO2, GLUCOSE, Medica l Branch BUN, CREATININE, CA) CONSENT/REFUSAL FOR 2022-09-13 02:24:56 Doctor Unassigned, No [facility] [place] DIAGNOSIS AND TREATMENT Name [facility] XR LUMBAR SPINE 5 VW 2022-09-12 20:57:55 [facility]W LEFT 2022-09-12 20:57:55 Kain [facility] PROSTATIC SPECIFIC 2022-09-12 19:52:00 Kain [facility] ANTIGEN [facility] FREE T4 2022-09-12 19:52:00 Kain [facility] THYROID STIMULATING 2022-09-12 19:52:00 Kain Alexandra [facility] HORMONE [facility] COMP. METABOLIC PANEL 2022-09-12 19:52:00 Kain Alexandra [facility] ([id number]) [facility] LIPID PANEL ([id number])(TOTAL 2022-09-12 19:52:00 Alexandra Finnegan [facility] CHOLESTEROL, [facility] TRIGLYCERIDES, HDL) CBC WITH DIFF 2022-09-12 19:52:00 Kain [facility] GLYCOSYLATED HEMOGLOBIN 2022-09-12 19:52:[facility] URINALYSIS 2022-09-12 19:52:00 Kain [facility] DME/SUPPLY JUSTIFICATION 2022-09-04 05:01:00 Doctor Unassigned, No [facility] Name [facility] POCT GLUCOSE (AUTOMATED) 2022-08-14 07:28:00 Les Ellsworth [facility] URINE DRUG (IMMUNOASSAY) 2022-08-14 06:10:00 Les Ellsworth [facility] - COMPREHENSIVE DRUG Medical [facility] nc SCREEN URINALYSIS 2022-08-14 06:10:00 Les Ellsworth [facility] BASIC METABOLIC PANEL 2022-08-14 05:43:00 Les Ellsworth [facility] (NA, K, CL, CO2, GLUCOSE, Medica l Branch BUN, CREATININE, CA) CBC WITH DIFF 2022-08-14 05:43:00 Les Ellsworth [facility] LACTIC ACID WHOLE BLOOD 2022-08-14 05:43:00 Les Ellsworth [facility] CONSENT/REFUSAL FOR 2022-08-14 05:01:57 Doctor Unassigned, No [facility] DIAGNOSIS AND TREATMENT [facility] DNR 2022-08-07 05:01:00 Doctor Unassigned, No [facility] HOME HEALTH 485 2022-08-02 05:01:00 Doctor Unassigned, No Univer sity [facility] POCT GLUCOSE (AUTOMATED) 2022-07-31 22:26:00 [facility], [facility] POCT GLUCOSE (AUTOMATED) 2022-07-31 17:13:00 Mayo, [facility] POCT GLUCOSE (AUTOMATED) 2022-07-31 01:46:00 Mayo, [facility] POCT GLUCOSE (AUTOMATED) 2022-07-30 23:16:00 [facility], [facility] POCT GLUCOSE (AUTOMATED) 2022-07-30 18:42:00 Mayo [facility] POCT GLUCOSE (AUTOMATED) 2022-07-30 14:18:00 Malik [facility] MAGNESIUM 2022-07-30 10:58:00 Kelsey [facility] BASIC METABOLIC PANEL 2022-07-30 10:58:00 Kelsey [facility] (NA, K, CL, CO2, GLUCOSE, Medica l Branch BUN, CREATININE, CA) CBC WITH DIFF 2022-07-30 10:58:00 Kelsey [facility] POCT GLUCOSE (AUTOMATED) 2022-07-30 01:36:00 [facility] POCT GLUCOSE (AUTOMATED) 2022-07-29 22:43:00 Mayo [facility] POCT GLUCOSE (AUTOMATED) 2022-07-29 18:35:00 Gael [facility] IRON PANEL 2022-07-29 17:06:00 Kelsey [facility] CT ANGIOGRAM LOWER 2022-07-29 16:36:24 Yordy Thornton [facility] EXTREMITY LEFT W CONTRAST Medica l Branch ACTIVATED PARTIAL 2022-07-29 13:53:00 Yordy Thornton [facility] THRMPLAS [facility] POCT GLUCOSE (AUTOMATED) 2022-07-29 13:45:00 Malik [facility] MAGNESIUM 2022-07-29 10:36:00 [facility] 2022-07-29 10:36:00 Mihai Cole [facility] HEPATIC FUNCTION PANEL 2022-07-29 10:36:00 Slim [facility] ([id number]) (ALB,T.PRO,BILI Medical Branch T,BU/BC,ALT,AST,ALK PHOS) BASIC METABOLIC PANEL 2022-07-29 10:36:[facility] (NA, K, CL, CO2, GLUCOSE, Medica l Branch BUN, CREATININE, CA) CBC WITH DIFF 2022-07-29 10:36:00 [facility] ACTIVATED PARTIAL 2022-07-29 07:13:00 Yordy Thornton [facility] URINALYSIS 2022-07-29 01:44:00 Darius [facility] CREATININE, URINE RANDOM 2022-07-29 01:44:[address] [facility] UREA NITROGEN, URINE 2022-07-29 01:44:00 Darius [facility] SODIUM, URINE RANDOM 2022-07-29 01:44:00 Darius [facility] POCT GLUCOSE (AUTOMATED) 2022-07-29 01:17:00 Malik [facility] POCT GLUCOSE (AUTOMATED) 2022-07-28 21:09:00 [facility] BASIC METABOLIC PANEL 2022-07-28 19:01:00 Demetrice Sanchez [facility] (NA, K, CL, CO2, GLUCOSE, Medica l Branch BUN, CREATININE, CA) ACTIVATED PARTIAL 2022-07-28 19:01:00 Yordy Thornton [facility] POCT GLUCOSE (AUTOMATED) 2022-07-28 17:12:00 [facility] BASIC METABOLIC PANEL 2022-07-28 14:28:00 Demetrice Sanchez [facility] (NA, K, CL, CO2, GLUCOSE, Medica l Branch BUN, CREATININE, CA) ACTIVATED PARTIAL 2022-07-28 14:28:00 Yordy Thornton [facility] POCT GLUCOSE (AUTOMATED) 2022-07-28 12:52:00 [facility] HB ECG ROUTINE & RHYTHM 2022-07-28 10:09:24 Scooter Barroso [facility] CREATINE KINASE 2022-07-28 08:02:00 Yordy Thornton [facility] C-REACTIVE PROTEIN 2022-07-28 08:02:00 Yordy [facility] COMP. METABOLIC PANEL 2022-07-28 08:02:00 Yordy hTornton [facility] ([id number] VANCOMYCIN RANDOM LEVEL 2022-07-28 08:02:00 Yordy Thornton [facility] SEDIMENTATION RATE 2022-07-28 08:02:00 Yordy [facility] CBC WITH DIFF 2022-07-28 08:02:00 Yordy Thornton [facility] GLYCOSYLATED HEMOGLOBIN 2022-07-28 08:02:00 Yordy Thornton [facility] (A1C) [facility] PROTHROMBIN TIME / INR 2022-07-28 08:02:00 Yordy Thornton [facility] ACTIVATED PARTIAL 2022-07-28 08:02:00 Yordy Thornton [facility] MRSA / MSSA SCREEN BY 2022-07-28 08:02:00 Yordy Thornton [facility] (AUTOMATED) 2022-07-28 08:01:00 [facility] COMP. METABOLIC PANEL 2022-07-19 02:58:00 Adolfo Hurley [facility] ([id number]) Medical Branch CBC WITH DIFF 2022-07-19 02:58:00 Adolfo Hurley [facility] NOTICE OF PRIVACY 2022-07-19 02:27:02 Doctor Unassigned, No Univ [facility] PRACTICES Name Medical Branch CONSENT/REFUSAL FOR 2022-07-19 02:25:51 Doctor Unassigned, No [facility] Name [facility] POC GLUCOSE 2022-07-03 16:21:00 Naif Cartagena Ho spital POC GLUCOSE 2022-07-03 12:18:00 Naif Cartagena Ho spital POC GLUCOSE 2022-07-03 01:29:00 Naif Cartagena Ho spital POC GLUCOSE 2022-07-02 21:46:00 Naif Cartagena spital POC GLUCOSE 2022-07-02 16:16:00 Naif Cartagena spital POC GLUCOSE 2022-07-02 12:16:00 Naif Cartagena Ho spital BASIC METABOLIC PANEL 2022-07-02 10:11:00 Nelda [facility] ESTIMATED GFR 2022-07-02 10:11:00 [facility] spital POC GLUCOSE 2022-07-02 01:23:00 Francesca Stevens spital POC GLUCOSE 2022-07-01 21:46:00 Francesca Stevens spital XR CHEST 1 VW PORTABLE 2022-07-01 20:15:43 [facility] 2022-07-01 20:09:45 Autumn Martinez [facility] POC GLUCOSE 2022-07-01 16:17:00 Francesca Stevens spital CARBAPENEMASE GENES 2022-07-01 16:15:00 [facility] 2022-07-01 12:23:00 Francesca Stevens spital VANCOMYCIN LEVEL, RANDOM 2022-07-01 11:14:00 Wilberto Joe [facility] POC GLUCOSE 2022-07-01 01:24:00 Francesca Stevens spital POC GLUCOSE 2022-06-30 22:08:00 Francesca Stevens Ho spital POC GLUCOSE 2022-06-30 16:12:00 Francesca Stevens Ho spital CARBAPENEMASE GENES 2022-06-30 15:00:00 [facility] P[facility]UCOSE 2022-06-30 12:23:00 Francesca Stevens Ho spital BASIC METABOLIC PANEL 2022-06-30 11:31:00 [facility] WITH PLATELET AND 2022-06-30 11:31:00 Francesca Stevens [facility] DIFFERENTIAL ESTIMATED GFR 2022-06-30 11:31:00 Francesca Stevens [facility] POC GLUCOSE 2022-06-30 01:47:00 Francesca Stevens [facility] POC GLUCOSE 2022-06-29 22:47:00 Francesca Stevens [facility] POC GLUCOSE 2022-06-29 17:19:00 Francesca Stevens [facility] POC GLUCOSE 2022-06-29 13:13:00 Francesca Stevens [facility] POC GLUCOSE 2022-06-29 02:41:00 YounFrancesca mathew [facility] POC GLUCOSE 2022-06-28 22:40:00 Francesca Stevens [facility] POC GLUCOSE 2022-06-28 17:47:00 Francesca Stevens [facility] POC GLUCOSE 2022-06-28 13:30:00 Francesca Stevens [facility] BASIC METABOLIC PANEL 2022-06-28 12:11:00 Francesca Stevens [facility] ESTIMATED GFR 2022-06-28 12:11:00 Francesca Stevens [facility] POC GLUCOSE 2022-06-28 02:28:00 YounFrancesca mathew [facility] POC GLUCOSE 2022-06-27 22:12:00 Ubaldo Stevensa [facility] POC GLUCOSE 2022-06-27 17:26:00 Francesca Stevens [facility] POC GLUCOSE 2022-06-27 13:29:00 Ubaldo Stevensa [facility] POC GLUCOSE 2022-06-27 02:09:00 Francesca Stevens [facility] POC GLUCOSE 2022-06-26 23:37:00 Francesca Stevens Ho spital FUNGUS CULTURE 2022-06-26 23:17:00 Nurko, Davin Faulkner spital [employer] CULTURE 2022-06-26 23:17:00 Cassidyko, Jin [facility] spital GRAM STAIN 2022-06-26 23:17:00 Nurko, Jincaleb Faulkner spital [employer] STAIN 2022-06-26 23:17:00 Nurko, Davin Faulkner Ho spital [employer] CULTURE 2022-06-26 23:09:00 Nurko, Jincaleb Faulkner spital FUNGUS SMEAR 2022-06-26 23:09:00 Cassidy, Davin Faulkner spital [employer] STAIN 2022-06-26 23:09:00 Nurko, Davin Faulkner spital FUNGUS CULTURE 2022-06-26 23:09:00 Cassidy, [facility] Ho spital AK AN ELECTIVE 2022-06-26 22:52:00 Jonathan Danielle [facility] SUPRAGLOTTIC AIRWAY DEBRIDEMENT, LOWER 2022-06-26 22:30:00 [facility] EXTREMITY ANAEROBIC CULTURE 2022-06-26 22:17:00 [facility] AEROBIC CULTURE 2022-06-26 22:17:00 [facility], [facility] Rast[facility]ari Ho spital TISSUE CULTURE 2022-06-26 22:09:00 [facility], [facility] spital ANAEROBIC CULTURE 2022-06-26 22:09:00 [facility] POC GLUCOSE 2022-06-26 21:46:00 Francesca Stevens spital POC GLUCOSE 2022-06-26 18:45:00 Francesca Stevens spital VANCOMYCIN LEVEL, RANDOM 2022-06-26 15:33:00 [facility] POC GLUCOSE 2022-06-26 14:15:00 Francesca Stevens spital CBC WITH PLATELET AND 2022-06-26 11:43:00 [facility] DIFFERENTIAL BASIC METABOLIC PANEL 2022-06-26 11:43:00 Brian Powell [facility] MAGNESIUM LEVEL 2022-06-26 11:43:00 [facility] PROTHROMBIN TIME WITH INR 2022-06-26 11:43:00 Louisa Escobar [facility] ESTIMATED GFR 2022-06-26 11:43:00 Brian Powell [facility] POC GLUCOSE 2022-06-26 02:46:00 Francesca Stevens spital LACTIC ACID LEVEL, SEPSIS 2022-06-26 02:02:00 [facility] healthBrian ellis [facility] - NOW AND REPEAT 2X EVERY 3 HOURS POC GLUCOSE 2022-06-25 22:12:00 Francesca Stevens spital LACTIC ACID LEVEL, SEPSIS 2022-06-25 22:06:00 Brian Powell [facility] - NOW AND REPEAT 2X EVERY 3 HOURS ECG 12-LEAD 2022-06-25 19:43:10 [facility] health[facility] ellis Tish [facility] INFLUENZA ANTIGEN TEST, 2022-06-25 19:18:00 [facility] REFLEX NEGATIVE TO RPP RESPIRATORY PATHOGEN 2022-06-25 19:18:00 [facility] PANEL WITH COVID-19 RT-PCR METHICILLIN-RESISTANT 2022-06-25 19:15:00 Brian Powell [facility] STAPHYLOCOCCUS AUREUS (MRSA), LEILANI LACTIC ACID LEVEL, SEPSIS 2022-06-25 19:01:00 Brian Powell [facility] - NOW AND REPEAT 2X EVERY 3 HOURS XR CHEST 1 VW PORTABLE 2022-06-25 18:53:03 Brian Powell [facility] XR FEMUR 2 VW LEFT 2022-06-25 18:52:28 Brian Powell [facility] BLOOD CULTURE, AEROBIC & 2022-06-25 18:05:00 [facility] ANAEROBIC BLOOD CULTURE, AEROBIC & 2022-06-25 18:00:00 [facility]ish [facility] ANAEROBIC CBC WITH PLATELET AND 2022-06-25 17:56:00 [facility]adrigBrian [facility] DIFFERENTIAL COMPREHENSIVE METABOLIC 2022-06-25 17:56:00 [facility] PANEL PROTHROMBIN TIME WITH INR 2022-06-25 17:56:00 [facility] ESTIMATED GFR 2022-06-25 17:56:00 [facility] MAGNESIUM LEVEL 2022-06-25 17:56:00 [facility] POC GLUCOSE 2022-06-25 17:06:00 Francesca Stevens [facility] spital POC GLUCOSE 2022-05-14 17:15:00 [facility] VENIPUNC NEED PHYS 2022-05-14 16:30:00 Padmini [facility] SKILL,DX OR RX POC GLUCOSE 2022-05-14 13:17:00 [facility] CBC WITH PLATELET AND 2022-05-14 11:43:00 Harinder [facility] DIFFERENTIAL BASIC METABOLIC PANEL 2022-05-14 11:43:00 [facility] ESTIMATED GFR 2022-05-14 11:43:00 [facility]SE 2022-05-14 02:36:00 [facility] POC GLUCOSE 2022-05-13 22:14:00 [facility] POC GLUCOSE 2022-05-13 17:21:00 [facility] POC GLUCOSE 2022-05-13 13:25:00 [facility] CBC WITH PLATELET AND 2022-05-13 11:23:00 [facility] DIFFERENTIAL BASIC METABOLIC PANEL 2022-05-13 11:23:00 [facility] ESTIMATED GFR 2022-05-13 11:23:00 [facility] POC GLUCOSE 2022-05-13 02:26:00 [facility] POC GLUCOSE 2022 22:54:00 [facility] POC GLUCOSE 2022 17:23:00 [facility] POC GLUCOSE 2022 13:33:00 [facility] CBC WITH PLATELET AND 2022 10:15:00 [facility] DIFFERENTIAL BASIC METABOLIC PANEL 2022 10:15:00 [facility] ESTIMATED GFR 2022 10:15:00 Harinder [facility] POC GLUCOSE 2022 03:36:00 [facility] POC GLUCOSE 2022-05-11 22:17:00 [facility] BLOOD CULTURE, AEROBIC & 2022-05-11 21:45:00 Nancy [facility] ANAEROBIC BLOOD CULTURE, AEROBIC & 2022-05-11 21:28:00 Nancy [facility] ANAEROBIC POC GLUCOSE 2022-05-11 17:11:00 Harinder, [facility] POC GLUCOSE 2022-05-11 13:14:00 [facility] CBC WITH PLATELET AND 2022-05-11 10:35:00 [facility] DIFFERENTIAL BASIC METABOLIC PANEL 2022-05-11 10:35:00 [facility] ESTIMATED GFR 2022-05-11 10:35:00 [facility] POC GLUCOSE 2022-05-11 02:33:00 Harinder, [facility] POC GLUCOSE 2022-05-10 22:49:00 [facility] BLOOD CULTURE, AEROBIC & 2022-05-10 22:13:00 Nancy [facility] ANAEROBIC HC NERVE BLOCK INJ 2022-05-10 19:31:21 Swapna [facility] FEMORAL SINGLE W IMG GUID HC ANESTH SCIATIC NERVE 2022-05-10 19:23:41 Swapna [facility] POC GLUCOSE 2022-05-10 18:34:00 [facility] SURGICAL PATHOLOGY 2022-05-10 18:13:00 [facility] REQUEST AK AN ELECTIVE 2022-05-10 17:24:00 Mari Gamboa [facility] SUPRAGLOTTIC AIRWAY AMPUTATION, BELOW KNEE 2022-05-10 16:57:00 Davin Walker [facility] POC GLUCOSE 2022-05-10 15:58:00 [facility] TTE COMPLETE, WO 2022-05-10 14:38:42 [facility] CONTRAST, W DOPPLER ([id number]) POC GLUCOSE 2022-05-10 13:14:00 [facility] CBC WITH PLATELET AND 2022-05-10 12:19:00 [facility] DIFFERENTIAL BASIC METABOLIC PANEL 2022-05-10 12:19:00 [facility] PARTIAL THROMBOPLASTIN 2022-05-10 12:19:00 [facility] TIME (PTT) PROTHROMBIN TIME WITH INR 2022-05-10 12:19:00 Louisa Escobar [facility] ESTIMATED GFR 2022-05-10 12:19:00 [facility] POC GLUCOSE 2022-05-10 03:02:00 [facility] POC GLUCOSE 2022-05-09 22:30:00 [facility] POC GLUCOSE 2022-05-09 18:05:00 [facility] US ANKLE BRACHIAL INDEX 2022-05-09 17:33:01 Gail West [facility] Jorgea VANCOMYCIN LEVEL, RANDOM 2022-05-09 16:42:00 Kenneth Farr [facility] Scooter POC GLUCOSE 2022-05-09 13:14:00 [facility] CBC WITH PLATELET AND 2022-05-09 11:25:00 Gail West [facility] 2022-05-09 11:25:00 Gail West ospital Chintan COMPREHENSIVE METABOLIC 2022-05-09 11:25:00 Gail West [facility] PANEL Gajonera ESTIMATED GFR 2022-05-09 11:25:00 Gail West H ospital [facility] MANUAL DIFFERENTIAL 2022-05-09 11:25:[address] [facility] 2022-05-09 02:55:00 Noman Brewer MRI FOOT WO CONTRAST LEFT 2022-05-09 02:37:17 Gail West [facility] POC GLUCOSE 2022-05-08 22:46:00 Noman Berwer Ho spital COVID-19 QUALITATIVE 2022-05-08 22:35:00 [facility] RT-PCR Scooter XR FOOT 3+ VW LEFT 2022-05-08 19:44:29 [facility] BLOOD CULTURE, AEROBIC & 2022-05-08 19:34:00 [facility] ANAEROBIC Scooter CBC WITH PLATELET AND 2022-05-08 19:34:00 [facility] DIFFERENTIAL Scooter COMPREHENSIVE METABOLIC 2022-05-08 19:34:00 [facility] PANEL [facility] C-REACTIVE PROTEIN 2022-05-08 19:34:00 [facility] SEDIMENTATION RATE 2022-05-08 19:34:00 [facility] Scooter ESTIMATED GFR 2022-05-08 19:34:00 [facility] Scooter MANUAL DIFFERENTIAL 2022-05-08 19:34:00 [facility] POC GLUCOSE 2022-05-08 18:06:00 [facility]SE 2022-04-19 22:41:00 July García H ospital CV TRANSESOPHAGEAL 2022-04-19 20:35:00 Sharon Mcmillan [facility] ECHOCARDIOGRAM W Angel CARDIOVERSION ECG 12-LEAD 2022-04-19 20:33:57 Jaspreet Cannon [facility] POC GLUCOSE 2022-04-19 17:28:00 Nadimpalli, July [facility] POC GLUCOSE 2022-04-19 13:31:00 Nadericalljulita, July [facility] CBC HEMOGRAM 2022-04-19 12:19:00 Nadimpalli, July [facility] BASIC METABOLIC PANEL 2022-04-19 12:19:00 Ricky [facility] MAGNESIUM LEVEL 2022-04-19 12:19:00 Nadericalli, July [facility] ESTIMATED GFR 2022-04-19 12:19:00 Nadimpalli, July [facility] POC GLUCOSE 2022-04-19 10:28:00 Nadimpalli, July [facility] POC GLUCOSE 2022-04-19 06:29:00 Nadimpalli, July [facility] POC GLUCOSE 2022-04-19 02:51:00 Nadimpalli, July [facility] POC GLUCOSE 2022-04-18 22:27:00 Nadimpalli, July [facility] POC GLUCOSE 2022-04-18 17:02:00 Nadimpalli, July [facility] POC GLUCOSE 2022-04-18 13:25:00 Nadimpalli, July [facility] CBC HEMOGRAM 2022-04-18 12:36:00 Nadimpalli, July [facility] BASIC METABOLIC PANEL 2022-04-18 12:36:00 Ricky [facility] ESTIMATED GFR 2022-04-18 12:36:00 Nadimpalli, July [facility] POC GLUCOSE 2022-04-18 10:01:00 Nadimpalli, July [facility] POC GLUCOSE 2022-04-18 07:11:00 Nadimpalli, July [facility] URINE DRUGS OF ABUSE 2022-04-18 03:32:00 [facility] POC GLUCOSE 2022-04-18 02:35:00 Nadimpalli, July [facility] POC GLUCOSE 2022-04-17 23:00:00 Nadimpalli, July [facility] NM MYOCARDIAL PERFUSION 2022-04-17 20:04:00 Silva [facility] REST STRESS 1 DAY CV STRESS TEST NUCLEAR 2022-04-17 20:04:00 Silva [facility] CARDIO POC GLUCOSE 2022-04-17 17:10:00 Nadimpalli, July [facility] POC GLUCOSE 2022-04-17 13:48:00 Nadimpalli, July [facility] BASIC METABOLIC PANEL 2022-04-17 11:17:00 [facility] CBC HEMOGRAM 2022-04-17 11:17:00 Nadimpalli, July [facility] MAGNESIUM LEVEL 2022-04-17 11:17:00 Nadimpalli, July [facility] ESTIMATED GFR 2022-04-17 11:17:00 Nadimpalli, July [facility] POC GLUCOSE 2022-04-17 10:13:00 Nadimpalli, July [facility] POC GLUCOSE 2022-04-17 06:09:00 Nadimpalli, July [facility] POC GLUCOSE 2022-04-17 02:46:00 Nadimpalli, July [facility] POC GLUCOSE 2022-04-16 23:09:00 Nadimpalli, July [facility] POC GLUCOSE 2022-04-16 17:53:00 Nadimpalli, July [facility] POC GLUCOSE 2022-04-16 13:40:00 Nadimpalli, July [facility] POC GLUCOSE 2022-04-16 10:34:00 Nadimpalli, July [facility] CBC HEMOGRAM 2022-04-16 09:46:00 [facility] BASIC METABOLIC PANEL 2022-04-16 09:46:00 [facility] PARTIAL THROMBOPLASTIN 2022-04-16 09:46:00 [facility] TIME (PTT) ESTIMATED GFR 2022-04-16 09:46:00 [facility] POC GLUCOSE 2022-04-16 06:16:00 [facility]ena [facility] POC GLUCOSE 2022-04-16 02:38:00 July García [facility] POC GLUCOSE 2022-04-15 23:20:00 [facility] PARTIAL THROMBOPLASTIN 2022-04-15 20:59:00 UgRenetta bhandari [facility] TIME (PTT) POC GLUCOSE 2022-04-15 17:50:00 [facility] PARTIAL THROMBOPLASTIN 2022-04-15 14:26:00 UgRenetta bhandari [facility] TIME (PTT) POC GLUCOSE 2022-04-15 13:50:00 [facility] CBC HEMOGRAM 2022-04-15 09:50:00 elisabet [facility] HERPES SIMPLEX VIRUS BY 2022-04-15 09:50:00 Shaikh [facility] PCR HIV 1/2 ANTIGEN/ANTIBODY, 2022-04-15 09:50:00 Shaikh [facility] FOURTH GENERATION, WITH REFLEXES BASIC METABOLIC PANEL 2022-04-15 09:50:00 Ricky [facility] ESTIMATED GFR 2022-04-15 09:50:00 [facility] POC GLUCOSE 2022-04-15 09:49:00 [facility]riel [facility] POC GLUCOSE 2022-04-15 06:33:00 [facility]riel [facility] POC GLUCOSE 2022-04-15 05:30:00 Uriel [facility] PARTIAL THROMBOPLASTIN 2022-04-15 05:29:00 UgRenetta bhandari [facility] TIME (PTT) POC GLUCOSE 2022-04-15 02:07:00 [facility]riel [facility] POC GLUCOSE 2022-04-14 23:24:00 [facility] PARTIAL THROMBOPLASTIN 2022-04-14 22:35:00 Ugoeke, [facility] TIME (PTT) POC GLUCOSE 2022-04-14 17:22:00 Uriel [facility] URINALYSIS SCREEN AND 2022-04-14 17:00:00 [facility] WITH [facility]FLEX TO CULTURE TTE COMPLETE, W CONTRAST, 2022-04-14 16:06:00 [facility] ([id number][facility] PARTIAL THROMBOPLASTIN 2022-04-14 15:38:00 [facility] ([facility] POC GLUCOSE 2022-04-14 13:37:00 Uriel [facility] CBC HEMOGRAM 2022-04-14 11:19:00 [facility] BASIC METABOLIC PANEL 2022-04-14 11:19:00 [facility] MAGNESIUM LEVEL 2022-04-14 11:19:00 Fahad Costello ESTIMATED GFR 2022-04-14 11:19:00 Fahad Costello POC GLUCOSE 2022-04-14 10:26:00 Fahad Costello POC GLUCOSE 2022-04-14 07:01:00 Fahad Costello HEPATIC FUNCTION PANEL 2022-04-14 06:28:00 [facility] 2022-04-14 06:28:00 Ugfransisco [facility] HORMONE PARTIAL THROMBOPLASTIN 2022-04-14 06:28:00 [facility] TIME (PTT) Efren POC GLUCOSE 2022-04-14 01:54:00 Fahad Costello POC GLUCOSE 2022-04-14 00:05:00 Fahad Cosetllo XR ABDOMEN 1 VW 2022-04-13 23:25:05 René Baird [facility] POC GLUCOSE 2022-04-13 22:54:00 Fahad Costello ECG 12-LEAD 2022-04-13 21:50:51 [facility] HYDROXYBUT[facility]ATE 2022-04-13 21:01:00 [facility] MAGNESIUM LEVEL 2022-04-13 21:01:00 Brie, [facility]é [facility] ESTIMATED GFR 2022-04-13 21:01:00 BrieArtie dolanew [facility] TROPONIN T 2022-04-13 21:01:00 Brie René Faulkner spital PHOSPHORUS LEVEL 2022-04-13 21:01:00 Brie [facility] ospital BASIC METABOLIC PANEL 2022-04-13 21:01:00 Brie, [facility] POC GLUCOSE 2022-04-13 20:54:00 Fahad Costello ospital Efren ECG 12-LEAD 2022-04-13 20:37:02 Silva [facility] TROPONIN T 2022-04-13 20:16:00 Silva [facility] POC GLUCOSE 2022-04-13 19:03:00 [facility] Efren POC GLUCOSE 2022-04-13 14:07:00 Pravin [facility] ospital Efren TROPONIN T 2022-04-13 13:25:00 Silva [facility] TROPONIN T 2022-04-13 12:11:00 fransisco [facility] PARTIAL THROMBOPLASTIN 2022-04-13 12:11:00 elisabet [facility] TIME (PTT) PROTHROMBIN TIME WITH INR 2022-04-13 12:11:00 fransisco [facility] ANTI XA, UNFRACTIONATED 2022-04-13 12:11:00 [facility] ECG 12-LEAD 2022-04-13 11:43:39 [facility] POC GLUCOSE 2022-04-13 11:41:00 [facility] POC GLUCOSE 2022-04-13 07:07:00 [facility] COVID-19 QUALITATIVE 2022-04-13 05:26:00 de Reid[facility] [place] POC GLUCOSE 2022-04-13 05:13:00 [facility] POC GLUCOSE 2022-04-13 04:36:[address] [facility] [address] ANGIOGRAM PE CHEST 2022-04-13 01:07:30 [facility] [place] ECG 12-LEAD 2022-04-12 22:44:44 [facility] [place] XR CHEST 1 VW PORTABLE 2022-04-12 22:03:54 [facility] [place] ECG ED PRELIMINARY 2022-04-12 21:56:45 [facility] INTERPRETATION [place] CRITICAL CARE 2022-04-12 21:56:45 [facility] ILL/INJURED PATIENT INIT [place] 30-74 MIN CBC WITH PLATELET AND 2022-04-12 21:56:00 [facility] DIFFERENTIAL [place] COMPREHENSIVE METABOLIC 2022-04-12 21:56:00 [facility] PANEL [place] TROPONIN T 2022-04-12 21:56:00 [facility] [place] B NATRIURETIC PEPTIDE 2022-04-12 21:56:00 [facility] [place] ESTIMATED GFR 2022-04-12 21:56:00 [facility] [place] POC GLUCOSE 2022-03-14 21:43:00 Noman [facility] POC GLUCOSE 2022-03-14 17:02:00 Noman [facility] POC GLUCOSE 2022-03-14 13:46:00 Noman [facility] POC GLUCOSE 2022-03-14 03:02:00 [facility]oman [facility] POC GLUCOSE 2022-03-13 23:33:00 Noman [facility] POC GLUCOSE 2022-03-13 18:05:00 Noman [facility] POC GLUCOSE 2022-03-13 13:57:00 LoquNoman gregg [facility] POC GLUCOSE 2022-03-13 02:06:00 Ana LuisaquNoman gregg [facility] POC GLUCOSE 2022-03-12 22:33:00 Ana LuisaquNoman gregg [facility] POC GLUCOSE 2022-03-12 21:31:00 Ana LuisaquNoman gregg [facility] LOWER EXTREMITY 2022-03-12 20:07:00 CassidyDavin wesley [facility] ANGIOGRAM,POSSIBLE ANGIOPLASTY,POSSIBLE STENT POC GLUCOSE 2022-03-12 15:51:00 Noman [facility] CBC WITH PLATELET AND 2022-03-12 10:36:00 Harinder [facility] DIFFERENTIAL BASIC METABOLIC PANEL 2022-03-12 10:36:00 [facility] PROTHROMBIN TIME WITH INR 2022-03-12 10:36:00 [facility] ESTIMATED GFR 2022-03-12 10:36:00 [facility] POC GLUCOSE 2022-03-12 02:25:00 [facility] USPV RADAMES EXTREMITY 2022-03-11 23:31:00 [facility] BILATERAL POC GLUCOSE 2022-03-11 23:16:00 [facility] POC GLUCOSE 2022-03-11 17:42:00 [facility] POC GLUCOSE 2022-03-11 13:36:00 [facility] CBC WITH PLATELET AND 2022-03-11 12:48:00 Harinder [facility] DIFFERENTIAL COMPREHENSIVE METABOLIC 2022-03-11 12:48:00 [facility] PANEL ESTIMATED GFR 2022-03-11 12:48:00 [facility] POC GLUCOSE 2022-03-11 02:16:00 [facility] METHICILLIN-RESISTANT 2022-03-11 00:23:00 Laurence Abreu [facility] STAPHYLOCOCCUS AUREUS [place] (MRSA), LEILANI POC GLUCOSE 2022-03-10 22:58:00 [facility] VANCOMYCIN LEVEL, RANDOM 2022-03-10 20:31:00 Bridgette Hernandez [facility] POC GLUCOSE 2022-03-10 17:46:00 Harinder [facility] POC GLUCOSE 2022-03-10 13:57:00 [facility] CBC WITH PLATELET AND 2022-03-10 09:15:00 Harinder [facility] DIFFERENTIAL COMPREHENSIVE METABOLIC 2022-03-10 09:15:00 Harindre [facility] PANEL MAGNESIUM LEVEL 2022-03-10 09:15:00 Harinder [facility] ESTIMATED GFR 2022-03-10 09:15:00 Harinder [facility] POC GLUCOSE 2022-03-10 02:19:00 Harinder [facility] POC GLUCOSE 2022-03-09 22:28:00 Harinder [facility] METHICILLIN-RESISTANT 2022-03-09 18:20:00 Harinder [facility] STAPHYLOCOCCUS AUREUS (MRSA), LEILANI POC GLUCOSE 2022-03-09 17:16:00 Harinder [facility] POC GLUCOSE 2022-03-09 08:46:00 [facility] POC GLUCOSE 2022-03-09 07:16:00 [facility] COVID-19 QUALITATIVE 2022-03-09 07:14:00 [facility] COM[facility]HENSIVE METABOLIC 2022-03-09 06:10:00 [facility] PANEL HEMOGLOBIN A1C 2022-03-09 06:10:00 Tonie-Edgar Castro ospital [facility] LIPID PANEL 2022-03-09 06:10:00 Tonie-Edgar Castro [facility] ospital [employer] XR FOOT 3+ VW LEFT 2022-03-09 05:56:37 [facility] HYDROXYBUTYRATE 2022-03-09 05:43:00 [facility] CBC WITH PLATELET AND 2022-03-09 05:35:00 Arnulfo [facility] DIFFERENTIAL LACTIC ACID LEVEL, SEPSIS 2022-03-09 05:35:00 Arnulfo Lax[facility] - NOW AND REPEAT 2X EVERY 3 HOURS VENOUS BLOOD GAS 2022-03-09 05:35:00 Arnulfo [facility] ESTIMATED GFR 2022-03-09 05:35:[facility] 2022-03-09 03:55:00 Provider, Yvonne [facility] POC GLUCOSE 2021-12-14 16:15:00 René De Jesus [facility] Arnulfo POC GLUCOSE 2021-12-14 12:10:00 René De Jesus [facility] Arnulfo POC GLUCOSE 2021-12-14 01:40:00 René De Jesus [facility] Arnulfo POC GLUCOSE 2021-12-13 21:17:00 [facility] GLU[facility]SE 2021-12-13 16:05:00 René De Jesus [facility] Arnulfo POC GLUCOSE 2021-12-13 12:22:00 René De Jesus [facility] Arnulfo POC GLUCOSE 2021-12-13 01:36:00 René De Jesus [facility] Arnulfo POC GLUCOSE 2021-12-12 22:00:00 [facility] VENIPUNC NEED PHYS 2021-12-12 17:56:39 Trinh Christensen [facility] SKILL,DX OR RX POC GLUCOSE 2021-12-12 16:34:00 René De Jesus [facility] Arnulfo POC GLUCOSE 2021-12-12 12:27:00 [facility] BASIC METABOLIC PANEL 2021-12-12 10:55:00 Neal [facility] Arnulfo CBC WITH PLATELET AND 2021-12-12 10:55:00 Neal [facility] DIFFERENTIAL Arnulfo ESTIMATED GFR 2021-12-12 10:55:00 René De Jesus [facility] EarleneZCOVID-19 ANTI-SPIKE IGG 2021-12-12 10:54:00 Ramu Quevedo [facility] ANTIBODY TITER Harjinder EarleneZKOBIVID-19 SEROLOGY 2021-12-12 10:54:00 Ramu Quevedo [facility] PATIENT SURVEILLANCE Harjinder POC GLUCOSE 2021-12-12 03:38:00 [facility] 2021-12-12 01:22:00 René De Jesus ospital Arnulfo POC GLUCOSE 2021-12-11 22:32:00 René De Jesus [facility] POC GLUCOSE 2021-12-11 17:04:00 [facility] P[facility]SE 2021-12-11 13:53:00 René De Jesus [facility] POC GLUCOSE 2021-12-11 08:48:00 [facility] POC GLUCOSE 2021-12-11 07:29:00 [facility] POC GLUCOSE 2021-12-11 06:36:00 [facility] COVID-19 QUALITATIVE 2021-12-11 05:55:00 Wilberto Carbajal [facility] RT-PCR POC GLUCOSE 2021-12-11 05:34:00 [facility] CBC WITH PLATELET AND 2021-12-11 04:02:00 Wilberto Carbajal [facility] DIFFERENTIAL COMPREHENSIVE METABOLIC 2021-12-11 04:02:00 [facility] PANEL LIPASE LEVEL 2021-12-11 04:02:00 [facility] BETA HYDROXYBUTYRATE 2021-12-11 04:02:00 Wilberto Carbajal [facility] VENOUS BLOOD GAS 2021-12-11 04:02:00 Wilberto Carbajal [facility] ESTIMATED GFR 2021-12-11 04:02:00 [facility] ABDOMEN PELVIS WO 2021-12-11 02:47:59 Wilberto Carbajal [facility] CONTRAST URINE CULTURE 2021-12-11 02:24:00 Og [facility] URINALYSIS SCREEN AND 2021-12-11 01:10:00 [facility], WITH REFLEX TO CULTURE URINE CULTURE 2021-11-08 17:34:00 Thong Cartagena [facility] URINALYSIS SCREEN AND 2021-11-08 16:54:00 [facility] MICROSCOPY, WITH REFLEX TO CULTURE CT RENAL STONE PROTOCOL 2021-11-08 16:35:59 [facility] WITH PLATELET AND 2021-11-08 16:05:00 [facility] DIFFERENTIAL BASIC METABOLIC PANEL 2021-11-08 16:05:00 [facility] LIPASE LEVEL 2021-11-08 16:05:00 Gregory [facility] spital HEPATIC FUNCTION PANEL 2021-11-08 16:05:00 [facility] ESTIMATED GFR 2021-11-08 16:05:00 [facility] POC GLUCOSE 2021-11-08 15:52:00 [facility] ECG ED PRELIMINARY 2021-10-11 04:49:00 [facility] ECG 12-LEAD 2021-10-11 03:14:36 [facility] CBC WITH PLATELET AND 2021-10-11 02:57:00 [facility] DIFFERENTIAL COMPREHENSIVE METABOLIC 2021-10-11 02:57:00 [facility] PANEL TROPONIN T 2021-10-11 02:57:00 [facility] B NATRIURETIC PEPTIDE 2021-10-11 02:57:00 [facility] TIME WITH INR 2021-10-11 02:57:00 Norberto Lanier [facility] PARTIAL THROMBOPLASTIN 2021-10-11 02:57:00 [facility] TIME (PTT) ESTIMATED GFR 2021-10-11 02:57:00 [facility] XR CHEST 2 VW 2021-10-11 02:05:13 [facility] DIABET[facility] FOOT [facility]AMINATION 2021-06-29 00:00:00 Virgilio Garcia [id number]. (2027F) 2 MOST RECENT DIASTOLIC 2021-06-29 00:00:00 Garcia, Branch 2.16.8 [id number]. BLOOD PRESSURE 80-89 MM 2 HG (HTN, CKD, CAD) (DM) (3079F) MOST RECENT SYSTOLIC 2021-06-29 00:00:00 Jose, Branch 2.16.84 [id number]. BLOOD PRESSURE 130-139 MM 2 HG (DM),(HTN, CKD, CAD) (3075F) NEGATIVE SCREEN FOR 2021-06-29 00:00:00 Garcia, Branch [id number]. CLINICAL DEPRESSION, 2 FOLLOW-UP NOT REQUIRED (G8510) PATIENT IDENTIFIED A 2021-06-29 00:00:00 Garcia, Branch [id number]. TOBACCO USER RECEIVED 2 TOBACCO CESSATION INTERVENTION (COUNSELING AND/OR PHARMACOTHERAPY) (G9906) SCREENING FOR TOBACCO USE 2021-06-29 00:00:00 Garcia, Branch [id number]. (4004F) 2 PATIENT SCREENED FOR 2021-06-29 00:00:00 Garcia, Branch 2.16.84 [id number]. TOBACCO USE AND 2 IDENTIFIED A TOBACCO USER (G9902) XRAY FOOT 3 VIEWS - 2021-02-02 15:18:00 Jamin Lopez [facility] ROUTINE CBC/DIFF 2021-02-02 15:12:00 Jamin Lopez alth BASIC METABOLIC PANEL 2021-02-02 15:12:00 Jamin Lopez Located within [facility] CBC 2021-02-02 15:12:00 Jamin Lopez alth URINE CULTURE 2021-01-03 04:26:00 [facility] Richard URINALYSIS SCREEN AND 2021-01-03 04:26:00 [facility] MICROSCOPY, WITH REFLEX Richard TO CULTURE LACTIC ACID LEVEL, SEPSIS 2021-01-03 03:04:00 [facility] - NOW AND REPEAT 2X EVERY Richard 3 HOURS TROPONIN 2021-01-03 03:04:00 [facility] Richard US DUPLEX VENOUS LOWER 2021-01-03 01:53:13 [facility] EXTREMITY RIGHT Richard ECG ED PRELIMINARY 2021-01-03 01:17:47 [facility] [place] XR TIBIA FIBULA 2 VW 2021-01-03 [facility]:05[facility] Richard XR FOOT 3+ VW LEFT 2021-01-03 01:05:05 [facility] 12-LEAD 2021-01-03 00:52:38 [facility]LO[facility], AEROBIC & 2021-01-03 00:47:00 [facility] ANAEROBIC Richard BLOOD CULTURE, AEROBIC & 2021-01-03 00:45:00 [facility] COMPLETE BLD COUNT 2021-01-03 00:43:00 [facility] W/AUTO DIFF Richard BASIC METABOLIC PANEL 2021-01-03 00:43:00 [facility] Richard HEPATIC FUNCTION PANEL 2021-01-03 00:43:00 [facility] LACTIC ACID LEVEL, SEPSIS 2021-01-03 00:43:00 [facility] - NOW AND REPEAT 2X EVERY [place] 3 HOURS LIPASE LEVEL 2021-01-03 00:43:00 [facility] TROPONIN 2021-01-03 00:43:00 [facility] B NATRIURETIC PEPTIDE 2021-01-03 00:43:00 [facility] Richard ESTIMATED GFR 2021-01-03 00:43:00 [facility] Amputation 2020-08-04 00:00:00 [facility] [id number]. 2 [id number] 2020-07-04 00:00:00 DAVJO.04 [facility] [id number] 2020-07-04 00:00:00 DAVJO.[email or web address] [facility] [id number] 2020-07-04 00:00:00 DAVJO.[email or web address] [facility] [id number] 2020-07-04 00:00:00 DAVJO.[email or web address] [facility] [id number] 2020-07-04 00:00:00 DAVJO.[email or web address] [facility] [id number] 2020-07-04 00:00:00 DAVJO.[email or web address] [facility] [id number] 2020-07-04 00:00:00 DAVJO.[email or web address] [facility] [id number] 2020-07-04 00:00:00 DAVJO.[email or web address] [facility] [id number] 2020-07-01 00:00:00 CRISTIANO [facility] [id number] 2020-07-01 00:00:00 CRISTIANO [facility] [id number] 2020-07-01 00:00:00 CRISTIANO [facility] [id number] 2020-07-01 00:00[facility]00 [facility] - FOR [facility] [id number]. NON-DIABETICS ONLY 2 COLONOSCOPY IN ADULT [facility] [id number]. [id number]. (30728) 2 Patient received annual [facility] 2.16.840 .[id number]. dental check-up 2 Teeth [facility] [id number] 3.4. 2 Plan of Care Planned Activity [...] Influenza Seasonal (>/= 19 yrs)] Future Scheduled 2022-11-21 [facility] Test 10:36:19 malignant neoplasm of colon (procedure) [code = 853776218] Future Scheduled 2022-11-21 [facility] Test 10:36:19 malignant neoplasm of colon (procedure) [code = 567436162] Future Scheduled 2022-11-21 [facility] Test 10:36:19 malignant neoplasm of colon (procedure) [code = 895416546] Future Scheduled 2022-11-21 COVID-19 VACCINE (#[facility] Test 10:36:19 [code = COVID-19 VACCINE (#1)] Future Scheduled 2022-11-21 DIABETES: RETINAL EYE [facility] Test 10:36:19 EXAM [code = DIABETES: RETINAL EYE EXAM] Future Scheduled 2022-11-21 [facility] 10:36[facility]19 [code = DIABETIC FOOT EXAM] Future Scheduled 2022-11-21 [facility] 10:36:19 [code = URINE MICROALBUMIN] Future Scheduled 2022-11-21 [facility]19 (procedure) [code = 447095885] Future Scheduled 2022-11-21 [facility] Test 10:36:19 malignant neoplasm of colon (procedure) [code = 838572332] Future Scheduled 2022-11-21 [facility] Test 10:36:19 malignant neoplasm of colon (procedure) [code = 854438793] Future Scheduled 2022-11-21 [facility] Test 10:36:19 malignant neoplasm of lung (procedure) [code = 192827901] Future Scheduled 2022-11-21 SHINGLES VACCINES (1 [facility] 10:36:19 of 2) [code = SHINGLES VACCINES (1 of 2)] Future Scheduled 2022-11-21 INFLUENZA VACCINE [facility] Test 10:36:19 [code = INFLUENZA VACCINE] Future Scheduled 2022-10-10 [facility] Test 14:06:50 malignant neoplasm of colon (procedure) [code = 011260667] Future Scheduled 2022-10-10 [facility] Test 14:06:50 malignant neoplasm of colon (procedure) [code = 482965554] Future Scheduled 2022-10-10 [facility] Test 14:06:50 malignant neoplasm of colon (procedure) [code = 348246781] Future Scheduled 2022-10-10 COVID-19 VACCINE (#1) [facility] Test 14:06:50 [code = COVID-19 VACCINE (#1)] Future Scheduled 2022-10-10 DIABETES: RETINAL EYE [facility] Test 14:06:50 EXAM [code = DIABETES: RETINAL EYE EXAM] Future Scheduled 2022-10-10 DIABETIC FOOT EXAM [facility] Test 14:06:50 [code = DIABETIC FOOT EXAM] Future Scheduled 2022-10-10 URINE MICROALBUMIN [facility] Test 14:06:50 [code = URINE MICROALBUMIN] Future Scheduled 2022-10-10 Hepatitis C screening [facility] Test 14:06:50 (procedure) [code = 224473707] Future Scheduled 2022-10-10 [facility] Test 14:06:50 malignant neoplasm of colon (procedure) [code = 290948341] Future Scheduled 2022-10-10 [facility] Test 14:06:50 malignant neoplasm of colon (procedure) [code = 274089658] Future Scheduled 2022-10-10 [facility] Test 14:06:50 malignant neoplasm of lung (procedure) [code = 543289404] Future Scheduled 2022-10-10 SHINGLES VACCINES (1 [facility] 14:06:50 of 2) [code = SHINGLES VACCINES (1 of 2)] Future Scheduled 2022-10-10 INFLUENZA VACCINE [facility] Test 14:06:50 [code = INFLUENZA VACCINE] Future Scheduled 2022-09-26 [facility] Test 01:58:19 malignant neoplasm of colon (procedure) [code = 214738801] Future Scheduled 2022-09-26 [facility] Test 01:58:19 malignant neoplasm of colon (procedure) [code = 508453369] Future Scheduled 2022-09-26 [facility] Test 01:58:19 malignant neoplasm of colon (procedure) [code = 874225851] Future Scheduled 2022-09-26 COVID-19 VACCINE (#1) [facility] Test 01:58:19 [code = COVID-19 VACCINE (#1)] Future Scheduled 2022-09-26 DIABETES: RETINAL EYE [facility] Test 01:58:19 EXAM [code = DIABETES: RETINAL EYE EXAM] Future Scheduled 2022-09-26 DIABETIC FOOT EXAM [facility] Test 01:58:19 [code = DIABETIC FOOT EXAM] Future Scheduled 2022-09-26 [facility] 01:58:19 [code = URINE MICROALBUMIN] Future Scheduled 2022-09-26 [facility] 01:58:19 (procedure) [code = 917299834] Future Scheduled 2022-09-26 [facility] Test 01:58:19 malignant neoplasm of colon (procedure) [code = 010415175] Future Scheduled 2022-09-26 [facility] Test 01:58:19 malignant neoplasm of colon (procedure) [code = 873667578] Future Scheduled 2022-09-26 [facility] Test 01:58:19 malignant neoplasm of lung (procedure) [code = 993335368] Future Scheduled 2022-09-26 SHINGLES VACCINES (1 [facility] 01:58:19 of 2) [code = SHINGLES VACCINES (1 of 2)] Future Scheduled 2022-09-26 INFLUENZA VACCINE [facility] Test 01:58:19 [code = INFLUENZA VACCINE] Future Scheduled 2022-09-19 COVID-19 [facility]ACCINE (#[facility] 11:07:21 [code = COVID-19 VACCINE (#1)] Future Scheduled 2022-09-19 [facility]ETES: [facility] 11:07:21 EXAM [code = DIABETES: RETINAL EYE EXAM] Future Scheduled 2022-09-19 DIABETIC FOOT EXAM [facility] 11:07:21 [code = DIABETIC FOOT EXAM] Future Scheduled 2022-09-19 [facility]21 [code = URINE MICROALBUMIN] Future Scheduled 2022-09-19 Hepatitis C screening [facility] 11:07:21 (procedure) [code = [id number]] Future Scheduled 2022-09-19 [facility] 11:07:21 malignant neoplasm of colon (procedure) [code = [id number]] Future Scheduled 2022-09-19 [facility] 11:07:21 malignant neoplasm of lung (procedure) [code = 006860623] Future Scheduled 2022-09-19 SHINGLES VACCINES (1 [facility] 11:07:21 of 2) [code = SHINGLES VACCINES (1 of 2)] Future Scheduled 2022-09-19 INFLUENZA VACCINE [facility] Test 11:07:21 [code = INFLUENZA VACCINE] Future Scheduled 2022-08-19 COVID-19 VACCINE (#1) Me [facility] Test 10:24:38 [code = COVID-19 VACCINE (#1)] Future Scheduled 2022-08-19 DIABETES: RETINAL EYE [facility] Test 10:24:38 EXAM [code = DIABETES: RETINAL EYE EXAM] Future Scheduled 2022-08-19 DIABETIC FOOT EXAM [facility] Test 10:24:38 [code = DIABETIC FOOT EXAM] Future Scheduled 2022-08-19 URINE [facility]ALBUMIN [facility] Test 10:24:38 [code = URINE MICROALBUMIN] Future Scheduled 2022-08-19 Hepatitis C screening [facility] Test 10:24:38 (procedure) [code = 727560420] Future Scheduled 2022-08-19 COLONOSCOPY SCREENING [facility] Test 10:24:38 [code = COLONOSCOPY SCREENING] Future Scheduled 2022-08-19 [facility] Test 10:24:38 malignant neoplasm of lung (procedure) [code = 564503552] Future Scheduled 2022-08-19 SHINGLES VACCINES (1 Met [facility] Test 10:24:38 of 2) [code = SHINGLES VACCINES (1 of 2)] Future Scheduled 2022-08-19 INFLUENZA VACCINE [facility] Test 10:24:38 [code = INFLUENZA VACCINE] Future Scheduled 2022-08-19 COVID-19 VACCINE (#1) [facility] 10:24:38 [code = COVID-19 [...] Future Scheduled 2022-08-19 [facility] 10:24:38 (procedure) [code = 012595252] Future Scheduled 2022-08-19 [facility] 10:24:38 [code = COLONOSCOPY SCREENING] Future Scheduled 2022-08-19 [facility] Test 10:24:38 malignant neoplasm of lung (procedure) [code = 684110341] Future Scheduled 2022-08-19 SHINGLES VACCINES (1 [facility] 10:24:38 of 2) [code = SHINGLES VACCINES (1 of 2)] Future Scheduled 2022-08-19 INFLUENZA VACCINE [facility] Test 10:24:38 [code = INFLUENZA VACCINE] Future Scheduled 2022-08-19 COVID-19 VACCINE (#1) [facility] 10:24:38 [code = COVID-19 [...] Future Scheduled 2022-08-19 [facility] 10:24:38 (procedure) [code = 444466504] Future Scheduled 2022-08-19 [facility] 10:24:38 [code = COLONOSCOPY SCREENING] Future Scheduled 2022-08-19 [facility] Test 10:24:38 malignant neoplasm of lung (procedure) [code = 541882126] Future Scheduled 2022-08-19 SHINGLES VACCINES (1 Met [facility] Test 10:24:38 of 2) [code = SHINGLES VACCINES (1 of 2)] Future Scheduled 2022-08-19 INFLUENZA VACCINE Method [facility] Test 10:24:38 [code = INFLUENZA VACCINE] Future Scheduled 2022-08-19 COVID-19 VACCINE (#1) [facility] Test 10:24:38 [code = COVID-19 VACCINE (#1)] Future Scheduled 2022-08-19 DIABETES: RETINAL EYE [facility] Test 10:24:38 EXAM [code = DIABETES: RETINAL EYE EXAM] Future Scheduled 2022-08-19 DIABETIC FOOT EXAM [facility] Test 10:24:38 [code = DIABETIC FOOT EXAM] Future Scheduled 2022-08-19 URINE MICROALBUMIN [facility] Test 10:24:38 [code = URINE MICROALBUMIN] Future Scheduled 2022-08-19 Hepatitis C screening [facility] Test 10:24:38 (procedure) [code = 868865332] Future Scheduled 2022-08-19 COLONOSCOPY SCREENING [facility] Test 10:24:38 [code = COLONOSCOPY SCREENING] Future Scheduled 2022-08-19 [facility] Test 10:24:38 malignant neoplasm of lung (procedure) [code = 298753574] Future Scheduled 2022-08-19 SHINGLES VACCINES (1 Met [facility] Test 10:24:38 of 2) [code = SHINGLES VACCINES (1 of 2)] Future Scheduled 2022-08-19 INFLUENZA VACCINE [facility] Test 10:24:38 [code = INFLUENZA VACCINE] Future Scheduled 2022-01-19 IMM [facility]al [facility] 00:00:00 (>/= 19 yrs) [code = IMM Influenza Seasonal (>/= 19 yrs)] Future Scheduled 2022-01-19 IMM Influenza Seasonal [facility] Test 00:00:00 (>/= 19 yrs) [code = IMM Influenza Seasonal (>/= 19 yrs)] Future Scheduled 2021-12-17 HEPATITIS B VACCINES Met [facility] Test 10:00:08 (1 of 3 - 3-dose series) [code = HEPATITIS B VACCINES (1 of 3 - 3-dose series)] Future Scheduled 2021-12-17 COVID-19 VACCINE (#1) [facility] Test 10:00:08 [code = COVID-19 VACCINE (#1)] Future Scheduled 2021-12-17 Pneumococcal Vaccine: [facility] Test 10:00:08 Pediatrics (0 to 5 Years) and At-Risk Patients (6 to 64 Years) (1 - PCV) [code = Pneumococcal Vaccine: Pediatrics (0 to 5 Years) and At-Risk Patients (6 to 64 Years) (1 - PCV)] Future Scheduled 2021-12-17 Hepatitis C screening [facility] Test 10:00:08 (procedure) [code = 675332193] Future Scheduled 2021-12-17 COLONOSCOPY SCREENING [facility] Test 10:00:08 [code = COLONOSCOPY SCREENING] Future Scheduled 2021-12-17 SHINGLES VACCINES (1 [facility] Test 10:00:08 of 2) [code = SHINGLES VACCINES (1 of 2)] Future Scheduled 2021-12-17 INFLUENZA VACCINE [facility] Test 10:00:08 [code = INFLUENZA VACCINE] Future Scheduled 2021-12-17 HEPATITIS B VACCINES [facility] Test 10:00:08 (1 of 3 - 3-dose series) [code = HEPATITIS B VACCINES (1 of 3 - 3-dose series)] Future Scheduled 2021-12-17 COVID-19 VACCINE (#1) [facility] Test 10:00:08 [code = COVID-19 VACCINE (#1)] Future Scheduled 2021-12-17 Pneumococcal Vaccine: [facility] Test 10:00:08 Pediatrics (0 to 5 Years) and At-Risk Patients (6 to 64 Years) (1 - PCV) [code = Pneumococcal Vaccine: Pediatrics (0 to 5 Years) and At-Risk Patients (6 to 64 Years) (1 - PCV)] Future Scheduled 2021-12-17 Hepatitis C screening [facility] Test 10:00:08 (procedure) [code = 423700329] Future Scheduled 2021-12-17 COLONOSCOPY SCREENING [facility] Test 10:00:08 [code = COLONOSCOPY SCREENING] Future Scheduled 2021-12-17 SHINGLES VACCINES (1 Met [facility] Test 10:00:08 of 2) [code = SHINGLES VACCINES (1 of 2)] Future Scheduled 2021-12-17 INFLUENZA VACCINE [facility] Test 10:00:08 [code = INFLUENZA VACCINE] Diagnostic Test 2021-06-29 HEMOGLOBIN GLYCLATED Pending 14:06:03 (HGB A1C) (42366) [code = 33085] Diagnostic Test 2021-06-29 CBC & PLATELETS (AUTO) Pending 14:05:14 (26140) [code = 67412] Diagnostic Test 2021-06-29 MICROALBUMIN/CREAT. Pending 13:35:45 RATIO WITH CREATININE (ALONDRA URINE) (22736) [code = 47892] Diagnostic Test 2021-06-29 LIPID PANEL (48014) Pending 13:35:39 [code = 23114] Diagnostic Test 2021-06-29 COMPREHENSIVE Pending 13:35:39 METABOLIC PANEL (56435) [code = 97538] Future Scheduled [facility]00 malignant neoplasm of colon (procedure) [code = 607727431] Future Scheduled 2017 [facility] 00:[facility]:00 malignant neoplasm of colon (procedure) [code = 045369218] Future Scheduled 2017 [facility] 00:00:00 malignant neoplasm of colon (procedure) [code = 641427125] Future Scheduled 2017 [facility]:00 malignant neoplasm of colon (procedure) [code = 998034392] Future Scheduled 2017 [facility] 00:00:00 malignant neoplasm of colon (procedure) [code = 403651719] Future Scheduled 2017 [facility] Test 00:00:00 malignant neoplasm of colon (procedure) [code = 542246939] Future Scheduled 2017 [facility] Test 00:00:00 malignant neoplasm of colon (procedure) [code = 105592021] Future Scheduled 2017 [facility] Test 00:00:00 malignant neoplasm of colon (procedure) [code = 295925272] Future Scheduled 2017 [facility] Test 00:00:00 malignant neoplasm of colon (procedure) [code = 096571397] Future Scheduled 1985 [facility] 00:[facility]:00 protein (procedure) [code = 639341655] Future Scheduled 1985 DM Retinal Exam [facility] 00:00:00 (Yearly) [code = DM Retinal Exam (Yearly)] Future Scheduled 1985 Diabetic foot [facility] Test 00:00:00 examination (regime/therapy) [code = 821070509] Future Scheduled 1985 [facility] 00:00:00 protein (procedure) [code = 898875949] Future Scheduled 1985 [facility] 00:00:00 (Yearly) [code = DM Retinal Exam (Yearly)] Future Scheduled 1985 [facility] 00:00:00 examination (regime/therapy) [code = 742953493] Future Scheduled 1985 [facility] 00:00:00 protein (procedure) [code = 103395773] Future Scheduled 1985 [facility] 00:00:00 (Yearly) [code = DM Retinal Exam (Yearly)] Future Scheduled 1985 [facility] 00:00:00 examination (regime/therapy) [code = 458122876] Future Scheduled 1985 [facility] 00:00:00 protein (procedure) [code = 763993968] Future Scheduled 1985 DM [facility] 00:00:00 (Yearly) [code = DM Retinal Exam (Yearly)] Future Scheduled 1985 DM Foot Exam (Yearly) [facility] 00:00:00 [code = DM Foot Exam (Yearly)] Future Scheduled 1985 [facility] 00:00:00 protein (procedure) [code = 363265636] Future Scheduled 1985 DM [facility] 00:00:00 (Yearly) [code = DM Retinal Exam (Yearly)] Future Scheduled 1985 DM Foot Exam (Yearly) [facility] Test 00:00:00 [code = DM Foot Exam (Yearly)] Future Scheduled 1985 [facility] 00:00:00 protein (procedure) [code = 291330074] Future Scheduled 1985 DM [facility] 00[facility]00:00 (Yearly) [code = DM Retinal Exam (Yearly)] Future Scheduled 1985 [facility] 00:00:00 examination (regime/therapy) [code = 682198579] Future Scheduled 1985 [facility] 00:00:00 protein (procedure) [code = 179847188] Future Scheduled 1985 DM [facility] 00:00:00 (Yearly) [code = DM Retinal Exam (Yearly)] Future Scheduled 1985 [facility] 00:00:00 examination (regime/therapy) [code = 510696491] Future Scheduled 1985 [facility] 00:00:00 protein (procedure) [code = 349062130] Future Scheduled 1985 DM [facility] 00:00:00 (Yearly) [code = DM Retinal Exam (Yearly)] Future Scheduled 1985 [facility] 00:00:00 examination (regime/therapy) [code = 157439384] Future Scheduled 1985 [facility] 00:00:00 protein (procedure) [code = 199977108] Future Scheduled 1985 DM [facility] 00:00:00 (Yearly) [code = DM Retinal Exam (Yearly)] Future Scheduled 1985 [facility] 00:00:00 examination (regime/therapy) [code = 273184432] Future Scheduled 1967 COVID-19 Vaccine (#1) [facility] Test 00:00:00 measurement (procedure) [code = 24290814] Future Scheduled 1967 Hemoglobin A1c [facility] 00:[facility]:00 measurement (procedure) [code = 80081043] Future Scheduled 1967 Fluoride Varnish [facility]code [facility] 00:00:00 = Fluoride Varnish] Future Scheduled 1967 Hemoglobin A1c [facility] 00:00:00 measurement (procedure) [code = 19302558] Future Scheduled 1967 Fluoride Varnish [code [facility] 00:00:00 = Fluoride Varnish] Future Scheduled 1967 [facility]1c [facility] 00:00:00 measurement (procedure) [code = 29739913] Future Scheduled 1967 [facility]1c [facility] 00:00:00 measurement (procedure) [code = 66258260] Future Scheduled 1967 [facility]1c [facility] 00:00:00 measurement (procedure) [code = 09384214] Future Scheduled 1967 [facility]1c [facility] 00:00:00 measurement (procedure) [code = 23892742] Future Scheduled 1967 [facility]c [facility] 00:00:00 measurement (procedure) [code = 22853860] Future Scheduled 1967 Hemoglobin A1c [facility] Test 00:00:00 measurement (procedure) [code = 46697689] Encounters Start End Encounter Admission Attending Care Care Encounter Source Date/Time Date/Time Type Type Clinicians Facility Department ID 2022-12-05 Outpatient [id number] 20FB-3 Memoria 00:38:36 40L1-375V B8-416D-815 7Q4-066L- 8 l -8153-A18 3-G83R00G2U 153-A18A09 Guille [id number] C76 [id number] 2022-10-14 Outpatient [id number] A598 2A76-1 [facility] 00:41:12 5EP8-7Y5J B3-8N8K-52M BB3-4D6D- 9 l -76K3-355 5-835ST5285 0V6-913TT6 Guille VT3831JJB CBB 615CBB 2022-09-26 Outpatient [id number]- 8ZBC7M17-TN 8BAA 2C28-B [facility] 22:55:52 BDD8-45A9 D8-66C3-K73 DD8-45A9- A l -P98A-237 C-3929M8S6T 65C-0738A6 Guille 8L6E6Y4PR 9CA A9E9CA 2022-09-23 Outpatient [id number]- [id number] 9A1A 7215-2 [facility] 15:40:06 30T9-9025 D4-4114-817 3S3-1055- 8 l -8170-0E7 0-9Z01877M4 170-5X4196 Guille 6222Y77Z5 1C5 7F51C5 2022-09-18 Outpatient [id number]- F93PJE54-22 B36D ED90-5 [facility] 10:27:41 541D-469D 1D-469D-BD0 41D-469D- B l -DV95-10V 8-12M7CI643 M44-88D7VW Guille 7LA76970C 07A 61123L 2022-09-05 Outpatient [id number]- [id number] 2321 5DA0-4 [facility] 19:47:40 4550-4F68 50-5Q86-6AR 550-4F68- 9 l -4NS4-I06 8-B747N8ZD3 EF8-C365D8 Guille 5W3CU8O46 C31 EA8C31 2022-08-22 Outpatient 553MS0SO- 200LL6JD-NW 040A D3FD-E [facility] 13:17:42 EEDC-4D67 DC-7I13-Y5V EDC-4D67- B l -S5U7-DB9 8-LI8760869 5T9-CY2484 Guille [id number] 901 108509 9475-05-01 Outpatient [id number]- 65780M82-D0 2664 7F96-A [facility] 10:26:06 S6R8-9A68 D0-7K68-AP0 0S8-1W09- B l -ZJ3N-A41 D-H43F238S2 X2Y-Q65Z66 Guille [id number] 284 0W5846 2022-07-01 Outpatient 60EI38N8- 11TL03A6-0S 52CB 02A8-1 [facility] 18:22:57 8I83-4H4M 86-2Z3J-O8Q F29-5H2N- A l -W0WP-959 F-062E823ST 7DF-972C65 Guille I587XE122 841 9EE116 2022-06-25 Outpatient Q169IS2O- W479ZX6P-21 C555 AD3A-6 [facility] 13:13:28 6801-408F 01-408F-9CD 801-408F- 9 l -4OE1-4T0 5-5X62L8488 CD5-9B11D0 Guille 9N5971DGS CAF 333CAF 2022-06-21 Outpatient [id number]- 062527YZ-18 2314 01CA-8 [facility] 16:24:21 8273-427F 73-427F-927 273-427F- 9 l -9279-910 9-0124406QM 279-512904 Guille 3105EK22W 00D 8DD00D 2022-05-10 Outpatient 3K2EF062- 9W0GZ047-L2 2E9D D710-A [facility] 06:40:42 V38X-42G3 5F-00U4-40M 65F-48A2- 9 l -48P2-6C8 9-7L098JDQR 8N9-0R522I Guille 01OOCW730 329 RXZ192 2022-05-08 Outpatient MPL2GHI1- LDC6BFS3-64 BEF6 CBA3-5 [facility] 15:37:53 503B-4880 3B-4880-9B6 03B-4880- 9 l -3D2Z-9AP D-7DGJ85941 M7A-8GSH75 Guille C56686K01 C18 509C18 2022-04-19 Outpatient 1CQT6C8C- 8ESR6X1O-80 1BBB 5C0D-8 [facility] 13:59:31 82B9-0914 F1-4973-998 8X1-2612- 9 l -998B-F76 B-U62800526 98B-Y25424 Guille [id number] 239737 9033-12-28 Outpatient 26WNA73T- 58KAE10X-LU 79BE F91E-D [facility] 13:31:43 DAD3-4873 D3-4873-877 AD3-4873- 8 l -8771-2E6 1-8E5L978B6 771-2E6E91 Guille F707S7167 342 9C7269 2022-04-13 Outpatient 0607W8X3- 5815I4O5-66 4505 A0B3-1 [facility] 15:36:01 15FB-4C6B FB-6G7H-Y59 5FB-4C6B- A l -S35W-M29 B-T37P6B912 59B-D42D0C Guille I0O723V8W A6F 833A6F 2022-04-12 Outpatient 29I6TZI0- 44S5NOF3-2R 06B9 BCB5-0 [facility] 15:30:39 1H77-3JX7 07-5LU1-773 O75-5OW7- 9 l -9202-AD6 2-SK93K47SR 202-AD61D6 Guille 5J54ZLM00 A84 7EAA84 2022-03-11 Outpatient 564Y6TE8- 145M4YJ8-35 938D 5EE5-8 [facility] 19:30:21 857A-4A82 7A-3B44-C1T 57A-4A82- B l -K2O6-7B0 5-5Y86644DZ 9Q3-2F7918 Guille 7386HO277 155 9UK119 2022-03-08 Outpatient [id number]- [id number] 3A45 0898-9 [facility] 21:44:29 9339-4C22 39-6W02-Z39 339-4C22- A l -U65V-13H E-99B05KRMJ 45E-85D07A Guille 16YJGP107 545 BLW567 2022-01-04 Outpatient 2XUN5YBT- 7HED7FAD-3F 9DDA 6CAA-4 [facility] 07:00:32 4D72-1580 77-4012-BA3 X33-6552- B l -AT05-Y45 9-P83XSLAL0 U14-Y44TLK Guille PQBYQ7TV0 CD2 AD3CD2 2021-12-31 Outpatient [id number]- 360034F3-B2 3447 38E1-B [facility] 12:10:15 P0W3-920N E1-485D-91D 6U6-001J- 9 l -94K1-J31 2-A36177193 2R8-Z00952 Guille 797290ZG8 AC5 327AC5 2021-10-07 Inpatient Roa, HCABM HCABM [id number] [facility] 06:58:00 Jerry [id number] [facility] 2021-07-14 Outpatient [facility] [id number] [place] 04:59:20 [id number] [facility] 2021-06-28 Outpatient [facility] [id number] [place] 15:37:52 [id number] [facility] 2021-06-15 Outpatient LS[facility] [id number] [place] 11:20:44 [id number] [facility] 2021-03-30 Outpatient [id number]- 4150AC91-6N 9110 FB25-7 Memoria 23:09:22 8Z51-117A 85-469A-9A5 X83-022G- 9 l -5H0E-F37 B-B6661E532 H1J-J6859M Guille 80R813R30 B38 918B38 2020-06-30 Inpatient HCAKW HCAKW [id number] [facility] 09:04:59 17 [facility] 2020-02-27 Inpatient HCACR AMA [id number] [facility] 13:37:00 01 Vielka [facility] 2019-10-08 Inpatient HCABM NCER [id number] [facility]CA 12:23:00 18 [facility] 2022-12-17 2022-12-17 [facility] [id number] Univers 08:00:00 08:00:00 [facility] 2022-12-13 2022-12-13 Outpatient R KAIN [facility] [id number] Univers 11:30:00 11:30:[address] [facility] 2022-12-10 2022-12-10 Outpatient R RENEE [facility] [id number] Univers 16:00:00 16:00:00 LEIGHTON JEFFERSON [facility] 2022-12-03 2022-12-03 Outpatient R JULIANN [facility] [id number] Univers 08:00:00 08:00:00 [facility] 2022-11-14 2022-11-14 [facility] 1..840.114 [id number] Univers 00:00:00 00:00:00 [facility] 350.1.13.10 [place] [id number] [address] 2022-11-06 2022-11-06 Office [facility] 1.2.840.114 [id number] Univers 14:30:00 14:40:59 [facility] 350.1.13.10 [place] [id number] Tn dical NAL [address] [facility] 2022-11-06 2022-11-06 Outpatient R RAMÓN KRAFT [facility] [id number] Univers 14:30:00 14:40:59 [facility]22-11-06 2022-11-06 Office Nimo [facility] 1.2.840.114 [id number] Univers 13:30:00 14:39:47 Visit Ramón CHAMBERS 350.1.13.10 [place] [phone] [facility] [address] [facility] 2022-10-21 2022-10-21 Outpatient R MORENITA [facility] [id number] Univers 13:30:00 13:30:[address] [facility] 2022-10-16 2022-10-16 Refill Kain [facility] 1.2.840.114 [id number] Univers 00:00:00 00:00:00 Alexandra CHAMBERS 350.1.13.10 i [place] [phone] [address] 2022-10-11 2022-10-11 Outpatient R LEIA [facility] [id number] Univers 08:00:00 08:00:00 RUIQING ity [facility] 2022-10-02 2022-10-02 Telephone Kain [facility] 1.2.807.800 [id number] Univers 00:00:00 00:00:00 Alexandra CHAMBERS 350.1.13.10 i [place] [phone] [facility] [address] [facility] 2022-09-25 2022-09-25 Orders Doctor KOENIG 1.2.840.114 [id number] Univers 00:00:00 00:00:00 Only Unassigned, BRANDEE 350.1.13.10 ity of [place] [facility] 4.2.7.2.686 Suhas as [phone] [address] 2022-09-20 2022-09-20 [facility] [id number] Univers 13:00:00 13:00:00 JENI ity [facility] 2022-09-18 2022-09-18 [facility]phone [facility] 1.2.331.206 [id number] Univers 00:00:00 00:00:00 Alexandra [place] 350.1.13.10 i ty of [place] [id number] Tn dical NAL [address] [facility] 2022-09-18 2022-09-18 Telephone [facility] 1.2.674.430 [id number] Univers 00:00:00 00:00:00 Alexandra [place] 350.1.13.10 i [place] [phone] Tn dical NAL [address] [place] [address] 2022-09-17 2022-09-17 [facility] 1.2.840.114 [id number] Univers 00:00:00 00:00:00 Jeni [place] 350.1.13.10 i [place] [phone] [facility] [address] [facility] 2022-09-13 2022-09-13 Outpatient R [facility] [id number] Univers 11:00:00 11:00:00 ity [facility] 2022-09-13 2022-09-13 [facility]phone [facility] 1.2.840.114 [id number] Univers 00:00:00 00:00:00 Ramón [place] 350.1.13.10 [place] [phone] Tn dical NAL [address] [place] [address] 2022-09-13 2022-09-13 [facility]phone [facility] 1.2.840.114 [id number] Univers 00:00:00 00:00:00 Jeni [place] 350.1.13.10 i [place] [phone] Tn dical NAL 204 [facility] 2022-09-12 2022-09-12 Emergency [facility] 1.2.840.114 [id number] Univers 21:33:00 22:56:00 Hui [place] 350.1.13.10 [place] [id number] [facility] [address] [place] 2022-09-12 2022-09-12 [facility] E[facility] [id number] Univers 15:07:02 21:32:00 ALEXANDRA [facility] 2022-09-12 2022-09-12 Hospital [facility] 1.2.840.114 [id number] Univers 15:07:02 21:32:00 Encounter Alexandra CHAMBERS 350.1.13.10 [facility] [place] [phone] [facility] [address] 2022-09-12 2022-09-12 [employer]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 [id number] Univers 13:30:00 14:26:44 ALEXANDRA [facility] 2022-09-12 2022-09-12 Office [facility] 1.2.840.114 [id number] Univers 13:30:00 14:26:44 Visit Alexandra CHAMBERS 350.1.13.10 i ty of [place] [phone] Tn dical NAL [address] [facility] 2022-09-12 2022-09-12 Telephone [facility] [id number] Univers 00:00:00 00:00:00 Alexandra CHAMBERS 350.1.13.10 i ty [place] [phone] Tn dical NAL [address] [place] [address] 2022-09-12 2022-09-12 Telephone [facility] [id number] Univers 00:00:00 00:00:00 Alexandra TRISH [id number] i ty [facility] 4[place] [phone] Tn dical NAL [address] [place] [address] 2022-09-11 2022-09-11 Telephone [facility] 1.2.840.114 [id number] Univers 00:00:00 00:00:00 Ignaciou [place] 350.1.13.10 ity of [place] [phone] [facility] NAL [address] [place] [address] 2022-09-10 2022-09-10 Outpatient R JULIANN [facility] [id number] Univers 10:30:00 11:36:35 JENI ity of [facility] 2022-09-06 2022-09-06 Telephone [facility] 1.2.840.114 [id number] Univers 00:00:00 00:00:00 Ignaciou [place] 350.1.13.10 ity [place] [phone] [facility] NAL [address] [place] [address] 2022-09-06 2022-09-06 Telephone [facility] 1.2.840.114 [id number] Univers 00:00:00 00:00:00 Matthwesocorrolizzu [place] 350.1.13.10 ity [place] [phone] Tn dical NAL [address] [place] [address] 2022-09-05 2022-09-05 Refill [facility] 1.2.840.114 99586 [id number] Univers 00:00:00 00:00:00 Ogechukwu [place] 350.1.13.10 ity of [facility] [place] [phone] [facility] 044 [facility] 2022-09-04 2022-09-04 Patient [facility], [facility] 1.2.840.114 [id number] Univers 00:00:00 00:00:00 Outreach Mari Schmitz [place] 350.1.13.10 it[place] of [place] [phone] [facility] 231 [facility] 2022-09-04 2022-09-04 Orders Doctor GILBERT 1.2.840.114 [id number] Univers 00:00:00 00:00:00 Only Unassigned, BRANDEE 350.1.13.10 ity of [place] [facility] 4.2.7.2.686 Suhas as [phone] [address] 2022-09-02 2022-09-02 [facility] 1.2.840.114 103 [id number] Univers 00:00:00 00:00:00 Ogbasiliou [place] 350.1.13.10 ity of [place] [phone] Tn dic[address] 2022-08-30 2022-08-30 Telephone [facility] 1.2.840.114 103 991154 Univers 00:00:00 00:00:00 Ogbasiliou [place] 350.1.13.10 ity of [place] [phone] Tn dic[address] 2022-08-28 2022-08-28 Telephone [facility] 1.2.840.114 103 [id number] Univers 00:00:00 00:00:00 Ogechukwu [place] 350.1.13.10 ity of [place] [phone] Tn dicco NAL 231 [facility] 2022-08-27 2022-08-27 [facility] 1.2.840.114 103 031686 Univers 00:00:00 00:00:00 Ogechukwu [place] 350.1.13.10 ity of [place].2.[place] [phone] Tn dical NAL [address] [place] [address] 2022-08-27 2022-08-27 Telephone [facility] 1.2.840.114 103 [id number] Univers 00:00:00 00:00:00 Ogechukwu [place] 350.1.13.10 ity of [facility] 4.2.[place].2.[place] [phone] Tn dical NAL [address] [place] [address] 2022-08-26 2022-08-26 Telephone [facility] 1.2.840.114 103 [id number] Univers 00:00:00 00:00:00 Ogechukwu [place] 350.1.13.10 ity [facility] 4.2.[place].2.[place] [phone] Tn dical NAL [address] [place] [address] 2022-08-21 2022-08-21 Abstract [facility] 1.2.436.294 6282 95894 Univers 00:00:00 00:00:00 Ogechukwu [place] 350.1.13.10 ity of [facility] 4.2.7.2.[place] [phone] Tn dical NAL [address] [place] [address] 2022-08-19 2022-08-19 Telephone [facility] 1.2.840.114 102 [id number] Univers 00:00:00 00:00:00 Ogechukwu [place] 350.1.13.10 ity of [facility] 4.2.7.2.[place] [phone] Tn dical NAL [address] [place] [address] 2022-08-15 2022-08-15 Outpatient R RENEE [facility] 882 [id number] Univers 15:40:00 15:40:00 LEIGHTON JEFFERSON it y of [facility] 2022-08-14 2022-08-14 Emergency X CHASITY [facility] ERT [id number] Univers 00:06:00 03:01:00 LES espana of [facility] 2022-08-14 2022-08-14 [facility] 1.2.840.114 1 [id number] Univers 00:06:00 03:01:00 Les CHAMBERS 350.1.13.10 i ty of [place]2.7.2.[place] [phone] [facility] [address] [place] 2022-08-08 2022-08-08 Outpatient R CIARA [facility] [id number] Univers 16:45:00 15:22:09 BLAS ity of [facility] 2022-08-07 2022-08-07 Orders Doctor GILBERT 1.2.840.114 [id number] Univers 00:00:00 00:00:00 Only Unassigned, BRANDEE 350.1.13.10 ity of [place] [facility] 4.2.7.2.686 Suhas as [phone] [facility] [address] [place] 2022-08-07 2022-08-07 Telephone Nimo [facility] 1.2.840.114 102 [id number] Univers 00:00:00 00:00:00 Ramón CHAMB[place] 350.1.13.10 ity of [place] 4[place]2.7.2.[place] [phone] Tn dical NAL [address] [place] [address] 2022-08-05 2022-08-05 Outpatient R RAMÓN KRAFT [facility] [id number] Univers 13:00:00 14:16:22 [facility] 2022-08-05 2022-08-05 Office Nimo [facility] 1.2.840.114 89958 9187 Univers 13:00:00 14:16:22 Visit Ramón CHAMBERS 350.1.13.10 ity of [place].2.[place] [phone] Tn dical NAL 044 [facility] 2022-08-05 2022-08-05 Patient Bao [facility] 1.2.840.114 [id number] 714 Univers 00:00:00 00:00:00 Outreach Mari CHAMB[place] 350.1.13.10 ity of [place] 4[place]2.7.2.[place] [phone] Tn dical [facility] [address] [facility] 2022-08-02 2022-08-02 Orders Doctor GILBERT 1.2.840.114 [id number] 861 Univers 00:00:00 00:00:00 Only Unassigned, BRANDEE 350.1.13.10 ity of [place] [facility] 4.2.7.2.686 Suhas as [phone] [facility] [address] 2022-08-02 2022-08-02 Telephone GILBERT Mcneal 1.2.840.114 10 [id number] Univers 00:00:00 00:00:00 Clare IRVIN 350.1.13.10 it y of HOSPITAL 4.2.7.2.686 Suhas as [phone] [facility] [address] 2022-08-01 2022-08-01 Transition Edy CARLOS AWilberto 1.2.840.114 102 [id number] Univers 00:00:00 00:00:00 of Care Alex Rian MORALES 350.1.13.10 ity of [place]2.7.2.[place] [phone] [facility] [address] 2022-08-01 2022-08-01 Telephone GILBERT Mcneal 1.2.840.114 10 [id number] Univers 00:00:00 00:00:00 Clare BRANDEE 350.1.13.10 it y of [facility] 4.2.7.2.686 Suhas as 064.7328982 [facility] [address] [place] 2022-07-28 2022-07-31 [facility] [id number] Univers 01:36:00 19:14:00 MALIK ity of [facility] 2022-07-28 2022-07-31 Hospital Brennan Love 1.2.840.114 [id number] Univers 01:36:00 19:14:00 Encounter Malik Mayo 350.1.13.10 ity of [facility] 4.2.7.2.686 Suhas as [phone] [facility] [address] 2022-07-18 2022-07-19 Emergency [facility] 1.2.612.999 2894 39717 Univers 21:30:00 01:47:00 Adolfo [place] [facility].1.13.10 [facility] 4.2.7.2.686 [facility] [phone] [place] [address] [address] 2022-07-18 2022-07-19 Emergency X CATALINO WIBARI ERT [id number] Univers 21:30:00 01:47:00 ADOLFO ity [facility] 2022-06-25 2022-07-03 [facility] 1.2.840.1 [id number] Methodi 10:52:00 03:00:00 Encounter Wilberto Joe Vta 54150.1.[address] Naif Cartagena 3.430.2.7 H ospita .3.701003 l .8 2022-06-25 2022-07-03 [facility] Francesca Stevens 1.2.840.1 [id number] Methodi 10:52:00 03:00:00 Encounter Wilberto Joe Vta 14476.1.1 124 Naif [place] 3.430.2.7 H ospita .3.437817 l .8 2022-07-03 2022-07-03 Documentat Abrams, 1.2.840.1 [id number] 2 [id number] Methodi 00:00:00 00:00:00 ion [address]yle 66135.1.[address] 3.430.2.7 Hospit a .3.853329 l .8 2022-07-03 2022-07-03 Documentat Abrams, 1.2.840.1 [id number] 2 [id number] Methodi 00:00:00 00:00:00 ion Cheryle 71332.1.[address] 3.430.2.7 Hospit a .3.435565 l .8 2022-06-26 2022-06-26 Surgery Cassidyko, 1.2.840.1 [id number] 282642 9855 Methodi 16:50:00 18:20:[address] 3.430.2.7 Hospit a .3.407162 l .8 2022-06-26 2022-06-26 Surgery Cassidyko, 1.2.840.1 [id number] 136898 0220 Methodi 16:50:00 18:20:[address] 3.430.2.7 Hospit a .3.716691 l .8 2022-06-26 2022-06-26 Anesthesia [facility] 1.2.840.1 104 274171 [id number] Methodi 16:46:00 17:36:00 Event Thong Torres 04361.1.[address] 3.430.2.7 Hospit a .3.031982 l .8 2022-06-26 2022-06-26 Anesthesia [facility] 1.2.840.1 104 946396 [id number] Methodi 16:46:00 17:36:00 Event Thong Torres 90828.1.[address] 3.430.2.7 Hospit a .3.726235 l .8 2022-06-25 2022-06-25 Office [facility], 1.2.840.1 [id number] 727386 5278 Methodi 09:00:00 10:28:55 Visit Davin 58995.1.[address] 3.430.2.7 Hospit a .3.257155 l .8 2022-06-25 2022-06-25 Office [facility], 1.2.840.1 115203428 686570 6975 Methodi 09:00:00 10:28:55 Visit Davin 46179.1.[address] 3.430.2.7 Hospit a .3.815318 l .8 2022-06-25 2022-06-25 Travel 1.2.840.1 1.2.384.544 6052 946015 Methodi 00:00:00 00:00:[address] 3.430.2.7 0.2.7.3.698 Ho spita .3.828262 084.8 l .8 2022-06-25 2022-06-25 Travel 1.2.840.1 1.2.735.461 6750 025693 Methodi 00:00:00 00:00:[address] 3.430.2.7 0.2.7.3.698 Ho spita .3.927980 084.8 l .8 2022-06-21 2022-06-21 Office Davin Walker 1.2.840.1 [id number] Methodi 13:00:00 14:47:04 Visit Louisa Escobar 87386.1.[address] 3.430.2.7 Hospit a .3.389542 l .8 2022-06-21 2022-06-21 Office Davin Walker 1.2.840.1 [id number] Methodi 13:00:00 14:47:04 Visit Louisa Escobar 46696.1.[address] 3.430.2.7 Hospit a .3.011894 l .8 2022-06-21 2022-06-21 Travel 1.2.840.1 1.2.660.147 0161 706900 Methodi 00:00:00 00:00:[address] 3.430.2.7 0.2.7.3.698 Ho spita .3.348119 084.8 l .8 2022-06-21 2022-06-21 Travel 1.2.840.1 1.2.627.709 0947 605591 Methodi 00:00:00 00:00:[address] 3.430.2.7 0.2.7.3.698 Ho spita .3.151116 084.8 l .8 2022-06-14 2022-06-14 Office Aaron, 1.2.840.1 303393650 595762 5863 Methodi 13:10:00 13:23:28 Visit Davin 39559.1.[address] 3.430.2.7 Hospit a .3.039565 l .8 2022-06-14 2022-06-14 Office Aaron, 1.2.840.1 [id number] 149889 5557 Methodi 13:10:00 13:23:28 Visit Davin 11833.1.[address] 3.430.2.7 Hospit a .3.354013 l .8 2022-06-14 2022-06-14 Travel 1.2.840.1 1.2.595.504 7375 302696 Methodi 00:00:00 00:00:[address] 3.430.2.7 0.2.7.3.698 Ho spita .3.082751 084.8 l .8 2022-06-14 2022-06-14 Travel 1.2.840.1 1.2.841.089 9620 354038 Methodi 00:00:00 00:00:[address] 3.430.2.7 0.2.7.3.698 Ho spita .3.429583 084.8 l .8 2022-05-24 2022-05-24 Office [facility], 1.2.840.1 [id number] 563800 9585 Methodi 14:00:00 14:54:06 Visit Davin 91190.1.[address] 3.430.2.7 Hospit a .3.063735 l .8 2022-05-24 2022-05-24 Office [facility], 1.2.840.1 [id number] 317033 5576 Methodi 14:00:00 14:54:06 Visit Davin 93203.1.[address] 3.430.2.7 Hospit a .3.684701 l .8 2022-05-24 2022-05-24 Travel 1.2.840.1 1.2.561.572 4517 763237 Methodi 00:00:00 00:00:[address] 3.430.2.7 0.2.7.3.698 Ho spita .3.182627 084.8 l .8 2022-05-24 2022-05-24 Travel 1.2.840.1 1.2.796.528 0073 954607 Methodi 00:00:00 00:00:[address] 3.430.2.7 0.2.7.3.698 Ho spita .3.345342 084.8 l .8 2022-05-08 2022-05-14 [facility] 1.2.840.1 [id number] Methodi 11:57:00 14:24:00 Encounter Noman Brewer 63205.1.1 [facility]430[facility]7 Hospita .3.131056 l .8 2022-05-08 2022-05-14 [facility] Kenneth Scooter 1.2.840.1 [id number] [id number] Methodi 11:57:00 14:24:00 Encounter Noman Brewer 74923.1.1 930 [facility] Ding 3.430.2.7 Hospita .3.504029 l .8 2022-05-14 2022-05-14 Documentat Paulo, 1.2.840.1 219866372 [id number] Methodi 00:00:00 00:00:00 ion Alyse 10331.1.[address] 3.430.2.7 Hospit a .3.347557 l .8 2022-05-14 2022-05-14 Documentat Paulo, 1.2.840.1 759150985 4059614376 Methodi 00:00:00 00:00:[address]se 42805.1.[address] 3.430.2.7 Hospit a .3.249475 l .8 2022-05-10 2022-05-10 Surgery Nurko, 1.2.840.1 722410138 299552 1425 Methodi 11:00:00 13:05:[address] 3.430.2.7 Hospit a .3.568556 l .8 2022-05-10 2022-05-10 Surgery Nurko, 1.2.840.1 060617981 633071 8029 Methodi 11:00:00 13:05:[address] 3.430.2.7 Hospit a .3.593843 l .8 2022-05-10 2022-05-10 Anesthesia Beulah Barcenas 1.2.840.1 086930 023 4347992089 Methodi 11:12:00 12:34:00 Event Mari Gamboa Richie 57496.1.[address] 3.430.2.7 Hospit a .3.455336 l .8 2022-05-10 2022-05-10 Anesthesia Beulah Barcenas 1.2.840.1 507600 023 2594165250 Methodi 11:12:00 12:34:00 Event Mari Gamboa Richie 89824.1.[address] 3.430.2.7 Hospit a .3.490352 l .8 2022-04-24 2022-04-24 Patient Carly, 1.2.840.1 689211440 63418 47318 Methodi 00:00:00 00:00:00 Outreach Cheri 44355.1.1 432 s t 3.430.2.7 Hospit a .3.214822 l .8 2022-04-24 2022-04-24 Patient Carroll, 1.2.840.1 309937069 98018 Methodi 00:00:00 00:00:00 Outreach Cheri 62982.1.1 432 s t 3.430.2.7 Hospit a .3.517021 l .8 2022-04-12 2022-04-19 [facility]840 .1 949930324 [id number] Methodi 15:27:00 19:06:00 Encounter Hector Orozco 61767.1.[address] Fahad Costello 3.430.2.7 Hospita Uriel Pastor .3.163954 l July García .8 2022-04-12 2022-04-19 [facility] 1.2.840 .1 188553850 5174344978 Methodi 15:27:00 19:06:00 Encounter Hector Orozco 82101.1.[address] [facility] Efren 3.430.2.7 Hospita Uriel Pastor .3.461770 l July García .8 2022-04-19 2022-04-19 Anesthesia Tu, 1.2.840.1 869920242 918 3726679 Methodi 14:04:00 14:26:[address] Event Jesus [address]1900.1.[address] Thi 3.430.2.7 Hospit a .3.632818 l .8 2022-04-19 2022-04-19 Anesthesia Tu, 1.2.840.1 196077356 605 8412026 Methodi 14:04:00 14:26:00 Event Jesus 24375.1.[address] Thi 3.430.2.7 Hospit a .3.666185 l .8 2022-03-08 2022-03-14 [place] 1.2.840.1 10 4230274 3480564542 Methodi 22:25:00 20:26:00 Encounter Aidee ShortFaizan Thi 28891.1.1 934 [facility] 3.430.2.7 [facility] Chacha Carbajal .3.904968 l Noman Brewer .8 2022-03-08 2022-03-14 [facility] 1.2.840.1 10 2854553 9903528530 Methodi 22:25:00 20:26:00 Encounter Aidee ShortGueroSherry Thi 60368.1.[address] HarinderBarrett elcallie Ding 3.430.2.7 [facility] Chacha Raven .3.353716 l Noman Brewer .8 2022-03-12 2022-03-12 Surgery [facility], 1.2.840.1 [id number] 610643 8437 Methodi 14:03:00 15:48:[address] 3.430.2.7 Hospit a .3.276110 l .8 2022-03-12 2022-03-12 Surgery Nurko, 1.2.840.1 565966406 691315 7870 Methodi 14:03:00 15:48:[address] 3.430.2.7 Hospit a .3.274538 l .8 2022-03-12 2022-03-12 Anesthesia Urrutia, 1.2.840.1 977779743 750 3984687 Methodi 14:23:00 15:33:00 Event Mary Estevez 57836.1.[address] 3.430.2.7 Hospit a .3.430579 l .8 2022-03-12 2022-03-12 Anesthesia Urrutia, 1.2.840.1 031679175 192 4828573 Methodi 14:23:00 15:33:00 Event Mary Estevez 96764.1.[address] 3.430.2.7 Hospit a .3.316651 l .8 2022-03-08 2022-03-08 Travel 1.2.840.1 1.2.739.501 8524 259784 Methodi 00:00:00 00:00:[address] 3.430.2.7 0.2.7.3.698 Ho spita .3.341770 084.8 l .8 2022-03-08 2022-03-08 Travel 1.2.840.1 1.2.578.502 0919 184158 Methodi 00:00:00 00:00:[address] 3.430.2.7 0.2.7.3.698 Ho spita .3.589549 084.8 l .8 2022-01-01 2022-01-05 Inpatient [id number] [facility] 16:59:00 12:20:00 Ab [facility] 2021-12-10 2021-12-14 [facility] Wilberto Carbajal 1.2.840.1 104 386469 [id number] Methodi 21:52:00 15:50:00 Encounter Ale Farias Amod 92145.1.[address] René De Jesus 3.430.2.7 Hospita .3.536987 l .8 2021-12-10 2021-12-14 Hospital Wilberto Cabrajal 1.2.840.1 104 620046 [id number] Methodi 21:52:00 15:50:00 Encounter Ale Farias Amod 02522.1.1 117 René Melendrez 3.430.2.7 Hospita .3.138614 l .8 2021-12-10 2021-12-10 Travel 1.2.840.1 1.2.563.363 5389 495918 Methodi 00:00:00 00:00:[address] 3.430.2.7 0.2.7.3.698 Ho spita .3.945157 084.8 l .8 2021-12-10 2021-12-10 Travel 1.2.840.1 1.2.751.793 8937 038389 Methodi 00:00:00 00:00:[address] 3.430.2.7 0.2.7.3.698 Ho spita .3.659757 084.8 l .8 2021-11-08 2021-11-08 Emergency Mitzi, 1.2.840.1 [id number] 2100 076917 Methodi 10:26:00 14:01:[address] 3.430.2.7 Hospit a .3.591505 l .8 2021-10-10 2021-10-10 Emergency Fahad Anna 1.2.840.1 057057547 [id number] Methodi 20:57:00 23:49:[address] 3.430.2.7 Hospit a .3.104148 l .8 2021-10-07 2021-10-07 Emergency EM Janina [facility] [id number] [facility] 06:46:00 07:39:00 Jerry 58 [facility] 2021-09-30 2021-09-30 Emergency EM Nataly [facility] [id number] [facility] 18:18:00 19:46:00 Margo 39 [facility] 2021-08-15 2021-08-15 Outpatient GC_HGMDA_Go PRIV PRIV 110 92829-7 [facility] 09:28:00 09:28:00 nzalez_J [id number] Medic al 2021-08-13 2021-08-13 Outpatient GC_HGMDA_Go PRIV PRIV 110 52098-1 [facility] 12:25:00 12:25:00 nzalez_J [id number] Medic al 2021-08-06 2021-08-06 Emergency EM Cresencio [facility] [id number] [facility] 15:06:00 18:56:00 Brennan 32 [facility] 2021-07-18 2021-07-18 Outpatient IDANIA [facility] [id number] [facility] [address] 00:00:00 00:00:00 [facility] 2021-06-29 2021-06-29 Office 0 [place] [id number] 13:30:00 16:29:55 Visit 06 2021-06-29 2021-06-29 Outpatient Berta Schwab [facility] 2343 820-20 [place] 13:13:00 13:13:00 [place] [facility] [id number] [facility] 2021-03-22 2021-03-22 Travel 1.2.840.1 1.2.751.232 1431 961225 Methodi 00:00:00 00:00:[address] 3.430.2.7 0.2.7.3.698 Ho spita .3.708075 084.8 l .8 2021-02-02 2021-02-02 [facility] [id number] 9998 24498 Dru 14:47:00 17:56:00 Shazia burns 2021-02-02 2021-02-02 [id number] 13 [place] 15:08:10 15:31:04 [facility] 2021-01-02 2021-01-03 Emergency Juan, 1.2.840.1 [id number] 2 [id number] Methodi 18:54:00 01:22:00 Donaldo Ramos 89968.1.[address] 3.430.2.7 Hospit a .3.097994 l .8 2020-12-24 2020-12-24 Emergency [facility] [id number] [facility] 12:04:00 17:13:00 Jerry 01 [facility] Results Test Description Test Time Test Comments Results Result Comments Source BASIC METABOLIC PANEL (NA, K, CL, CO2, GLUCOSE, BUN, 2022-08 03:38:19 CREATININE, CA) Test Item Value Reference Range Interpretation Comme nts NA (test code = 7220382884) 137 mmol/L 135-145 K (test code = 4914577287) 5.9 mmol/L 3.5-5.0 H CL (test code = 6915912433) 103 mmol/L 98-108 CO2 TOTAL (test code = 9621883846) 25 mmol/L 23-31 AGAP (test code = 1072208243) 9 2-16 BUN (test code = 8703380165) 23 mg/dL 7-23 GLUCOSE (test code = 8679804513) 235 mg/dL 70-110 H CREATININE (test code = 1.14 mg/dL 0.60-1.25 5026964232) CALCIUM (test code = 7924728641) 8.8 mg/dL 8.6-10.6 eGFR (test code = 3240726833) 66.7 mL/min/1.73m2 MOE (test code = MOE) [...] tests). Lab Interpretation (test code = Abnormal 44978-3) [facility]2022-08-14 07:30:03 Test Item Value Reference Range Interpretation Comments POCT GLU (test code = 5459459824) 175 mg/dL 70-110 H Lab Interpretation (test code = Abnormal 39394-1) [facility] MET[facility]OLIC [facility] (NA, K, CL, CO2, GLUCOSE, BUN, CREATININE, CA)2022-08-14 06:49:10 Test Item Value Reference Range Interpretation Comments NA (test code = 137 mmol/L 135-145 2488293923) K (test code = 4.8 mmol/L 3.5-5.0 2482702783) CL (test code = 106 mmol/L 98-108 5846387344) CO2 TOTAL (test code = 25 mmol/L 23-31 4001909981) AGAP (test code = 6 2-16 8030323478) BUN (test code = 35 mg/dL 7-23 H 2056238052) GLUCOSE (test code = 187 mg/dL 70-110 H 0666075496) CREATININE (test code = 1.19 mg/dL 0.60-1.25 1754534849) CALCIUM (test code = 8.5 mg/dL 8.6-10.6 L 0786381969) eGFR (test code = 63.5 mL/min/1.73m2 6038415569) MOE (test code = MOE) Association of [...] tests). Lab Interpretation Abnormal (test code = 41948-5) [facility] WITH [id number] 06:35:09 Test Item Value Reference Range Interpretation Comments WBC (test code = 6.59 See_Comment [Automated 5546-2) message] The sy stem which generated this result transmitted reference range : 4.20 - 10.70 10*3/?L. The reference range was not used to interpret this result as normal/abnormal . RBC (test code = 3.10 See_Comment L [Automated 394-1) message] The sy stem which generated this [...] (test code = 58.6 fL 38.5-51.6 H 54991-4) RDW-CV (test code = 17.5 % 12.1-15.4 H 788-0) PLT (test code = 328 See_Comment [Automated 777-3) message] The sy stem which generated this result transmitted reference range : 150 - 328 10*3/ ?L. The reference r maggi was not used to interpret this result as normal/abnormal . MPV (test code = 10.1 fL 9.8-13.0 69868-2) NRBC/100 WBC (test 0.0 See_Comment [Automat ed code = [id number]) message] The system which generated this result transmitted reference range : 0.0 - 10.0 /100 WBCs. The refer ence range was not u sed to interpret th is result as normal/abnormal . NRBC x10^3 (test code See_Comment [Auto mated = [id number]) message] The s ystem which generated this result transmitted reference range : 10*3/?L. The reference range was not used to interpret this result as normal/abnormal . GRAN MAT (NEUT) % 63.9 % (test code = 770-8) IMM GRAN % (test code 0.50 % = 8479349391) LYMPH % (test code = 24.9 % 736-9) MONO % (test code = 7.4 % 5905-5) EOS % (test code = 2.4 % 713-8) BASO % (test code = 0.9 % 706-2) GRAN MAT x10^3(ANC) 4.21 10*3/uL 1.99-6.95 (test code = 6790381087) IMM GRAN x10^3 (test 0.03 10*3/uL 0.00-0.06 code = 9985384565) LYMPH x10^3 (test code 1.64 10*3/uL 1.09-3.23 = 731-0) MONO x10^3 (test code 0.49 10*3/uL 0.36-1.02 = 742-7) EOS x10^3 (test code = 0.16 10*3/uL 0.06-0.53 711-2) BASO x10^3 (test code 0.06 10*3/uL 0.01-0.09 = 704-7) Lab Interpretation Abnormal (test code = 89286-1) [address]2023-04-20 20:13:46 Test Item Value Reference Range Interpretation Comments Ventricular rate (test 79 code = 253) Atrial rate (test code 79 = 255) AK interval (test code 150 = 266) QRSD [...] lengthened-Electronica lly Signed By Jaspreet Cannon MD ([id number]) on 08/08/2022 3:13:43 PM [place] [address] [id number] 20:13:46 Test Item Value Reference Range Interpretation Comments Ventricular rate (test 79 code = 253) Atrial rate (test code 79 = 255) AK interval (test code 150 = 266) QRSD [...] Cannon MD ([id number]) on 08/08/2022 3:13:43 PM [address]2023-04-20 20:13:46 Test Item Value Reference Range Interpretation Comments Ventricular rate (test 79 code = 253) Atrial rate (test code 79 = 255) AK interval (test code 150 = 266) QRSD [...] Cannon MD ([id number]) on 08/08/2022 3:13:43 PM [address]2023-04-20 20:13:46 Test Item Value Reference Range Interpretation Comments Ventricular rate (test 79 code = 253) Atrial rate (test code 79 = 255) AK interval (test code 150 = 266) QRSD [...] Cannon MD ([id number]) on 08/08/2022 3:13:43 PM [address]2023-04-20 20:13:46 Test Item Value Reference Range Interpretation Comments Ventricular rate (test 79 code = 253) Atrial rate (test code 79 = 255) AK interval (test code 150 = 266) QRSD [...] Cannon MD ([id number]) on 08/08/2022 3:13:43 PM [address]2023-04-20 20:13:46 Test Item Value Reference Range Interpretation Comments Ventricular rate (test 79 code = 253) Atrial rate (test code 79 = 255) AK interval (test code 150 = 266) QRSD [...] Cannon MD ([id number]) on 08/08/2022 3:13:43 PM [address]2023-04-20 20:13:46 Test Item Value Reference Range Interpretation Comments Ventricular rate (test 79 code = 253) Atrial rate (test code 79 = 255) AK interval (test code 150 = 266) QRSD [...] Cannon MD ([id number]) on 08/08/2022 3:13:43 PM [facility] 12 [id number] 20:13:46 Test Item Value Reference Range Interpretation Comments Ventricular rate (test 79 code = 253) Atrial rate (test code 79 = 255) AK interval (test code 150 = 266) QRSD [...] Cannon MD ([id number]) on 08/08/2022 3:13:43 PM [facility]2023-04-20 05:30:00 Test Item Value Reference Range Interpretation Comments AFB culture No growth Specimen isolate (test after 6 weeks InformationSp ecimen code = 543-9) of Source: Tissue Specimen incubation. Site: Leg: Left Lower Extremity - Cul [facility]2023-04-20 05:30:00 Test Item Value Reference Range Interpretation Comments AFB culture No growth Specimen isolate (test after 6 weeks InformationSp ecimen code = 543-9) of Source: Tissue Specimen incubation. Site: Leg: Left Lower Extremity [facility] [facility] 05:30:00 Test Item Value Reference Range Interpretation Comments AFB culture No growth Specimen isolate (test after 6 weeks InformationSp ecimen code = 543-9) of Source: Tissue Specimen incubation. Site: Leg: Left Lower Extremity - Cul [facility] HospitalAFB [id number] 05:30:00 Test Item Value Reference Range Interpretation Comments AFB culture No growth Specimen isolate (test after 6 weeks InformationSp ecimen code = 543-9) of Source: Tissue Specimen incubation. Site: Leg: Left Lower Extremity - [facility] [id number] 05:30:00 Test Item Value Reference Range Interpretation Comments AFB culture No growth Specimen isolate (test after 6 weeks InformationSp ecimen code = 543-9) of Source: Tissue Specimen incubation. Site: Leg: Left Lower Extremity - [facility] [id number] 05:30:00 Test Item Value Reference Range Interpretation Comments AFB culture No growth Specimen isolate (test after 6 weeks InformationSp ecimen code = 543-9) of Source: Tissue Specimen incubation. Site: Leg: Left Lower Extremity - [facility] cqbfazq7391-78-71 05:30:00 Test Item Value Reference Range Interpretation Comments AFB culture No growth Specimen isolate (test after 6 weeks InformationSp ecimen code = 543-9) of Source: Tissue Specimen incubation. Site: Leg: Left Lower Extremity - [facility] czxcqif9962-93-04 05:30:00 Test Item Value Reference Range Interpretation Comments AFB culture No growth Specimen isolate (test after 6 weeks InformationSp ecimen code = 543-9) of Source: Tissue Specimen incubation. Site: Leg: Left Lower Extremity - [facility] GLUCOSE (AUTOMATED)2022-07-31 22:28:25 Test Item Value Reference Range Interpretation Comments POCT GLU (test code = 6960876830) 116 mg/dL 70-110 H Lab Interpretation (test code = Abnormal 78085-0) [facility] GLUCOSE (AUTOMATED)2022-07-31 17:14:36 Test Item Value Reference Range Interpretation Comments POCT GLU (test code = 9771810617) 136 mg/dL 70-110 H Lab Interpretation (test code = Abnormal 59337-8) [facility] GLUCOSE (AUTOMATED)2022-07-31 01:47:10 Test Item Value Reference Range Interpretation Comments POCT GLU (test code = 3624214172) 141 mg/dL 70-110 H Lab Interpretation (test code = Abnormal 24029-8) [facility] GLUCOSE (AUTOMATED)2022-07-30 23:18:09 Test Item Value Reference Range Interpretation Comments POCT GLU (test code = 9269354821) 140 mg/dL 70-110 H Lab Interpretation (test code = Abnormal 98766-3) [facility] GLUCOSE (AUTOMATED)2022-07-30 18:43:38 Test Item Value Reference Range Interpretation Comments POCT GLU (test code = 5848058571) 165 mg/dL 70-110 H Lab Interpretation (test code = Abnormal 03762-7) [facility] GLUCOSE (AUTOMATED)2022-07-30 14:19:36 Test Item Value Reference Range Interpretation Comments POCT GLU (test code = 1348506255) 90 mg/dL 70-110 Lab Interpretation (test code = Normal 76300-1) [facility] GLUCOSE (AUTOMATED)2022-07-30 01:37:57 Test Item Value Reference Range Interpretation Comments POCT GLU (test code = 9119445239) 100 mg/dL 70-110 Lab Interpretation (test code = Normal 53880-7) [facility] GLUCOSE (AUTOMATED)2022-07-29 22:44:33 Test Item Value Reference Range Interpretation Comments POCT GLU (test code = 6335771684) 113 mg/dL 70-110 H Lab Interpretation (test code = Abnormal 73376-1) [facility] GLUCOSE (AUTOMATED)2022-07-29 18:36:00 Test Item Value Reference Range Interpretation Comments POCT GLU (test code = 1907335144) 108 mg/dL 70-110 Lab Interpretation (test code = Normal 96367-4) [facility] 13:47:37 Test Item Value Reference Range Interpretation Comments POCT GLU (test code = 5172499542) 91 mg/dL 70-110 Lab Interpretation (test code = Normal 97647-3) [facility] GLUCOSE (AUTOMATED)2022-07-29 01:19:16 Test Item Value Reference Range Interpretation Comments POCT GLU (test code = 0182680610) 143 mg/dL 70-110 H Lab Interpretation (test code = Abnormal 65563-6) [facility] GLUCOSE (AUTOMATED)2022-07-28 21:10:26 Test Item Value Reference Range Interpretation Comments POCT GLU (test code = 8211140441) 148 mg/dL 70-110 H Lab Interpretation (test code = Abnormal 62453-7) [facility] GLUCOSE (AUTOMATED)2022-07-28 17:13:13 Test Item Value Reference Range Interpretation Comments POCT GLU (test code = 3428708006) 199 mg/dL 70-110 H Lab Interpretation (test code = Abnormal 07173-5) [facility] GLUCOSE (AUTOMATED)2022-07-28 12:53:47 Test Item Value Reference Range Interpretation Comments POCT GLU (test code = 0768988418) 113 mg/dL 70-110 H Lab Interpretation (test code = Abnormal 22021-1) [facility] GLUCOSE (AUTOMATED)2022-07-28 08:02:41 Test Item Value Reference Range Interpretation Comments POCT GLU (test code = 7202445757) 126 mg/dL 70-110 H Lab Interpretation (test code = Abnormal 57740-8) [facility] [id number] 05:40:00 Test Item Value Reference Range Interpretation Comments Fungus culture No growth Specimen isolate (test after 4 weeks InformationSp ecimen code = 580-1) of Source: Tissue Specimen incubation. Site: Leg: Left Lower Extremity - Cul ture [facility] ugaqrmv1494-82-51 05:40:00 Test Item Value Reference Range Interpretation Comments Fungus culture No growth Specimen isolate (test after 4 weeks InformationSp ecimen code = 580-1) of Source: Tissue Specimen incubation. Site: Leg: Left Lower Extremity - Cul [facility] coytbrg4118-22-90 05:40:00 Test Item Value Reference Range Interpretation Comments Fungus culture No growth Specimen isolate (test after 4 weeks InformationSp ecimen code = 580-1) of Source: Tissue Specimen incubation. Site: Leg: Left Lower Extremity - Cul [facility] [id number] 05:40:00 Test Item Value Reference Range Interpretation Comments Fungus culture No growth Specimen isolate (test after 4 weeks InformationSp ecimen code = 580-1) of Source: Tissue Specimen incubation. Site: Leg: Left Lower Extremity - Cul [facility] cipcjac9374-82-02 05:40:00 Test Item Value Reference Range Interpretation Comments Fungus culture No growth Specimen isolate (test after 4 weeks InformationSp ecimen code = 580-1) of Source: Tissue Specimen incubation. Site: Leg: Left [facility] zwymkwj7909-07-39 05:40:00 Test Item Value Reference Range Interpretation Comments Fungus culture No growth Specimen isolate (test after 4 weeks InformationSp ecimen code = 580-1) of Source: Tissue Specimen incubation. Site: Leg: Left [facility] ggiaftw4909-75-00 05:40:00 Test Item Value Reference Range Interpretation Comments Fungus culture No growth Specimen isolate (test after 4 weeks InformationSp ecimen code = 580-1) of Source: Tissue Specimen incubation. Site: Leg: Left [facility] vpoiejp6158-49-03 05:40:00 Test Item Value Reference Range Interpretation Comments Fungus culture No growth Specimen isolate (test after 4 weeks InformationSp ecimen code = 580-1) of Source: Tissue Specimen incubation. Site: Leg: Left [facility]. Metabolic Panel (23403)2022-07-19 03:26:53 Test Item Value Reference Range Interpretation Comments NA (test code = 140 mmol/L 135-145 7258696266) K (test code = 5.3 mmol/L 3.5-5.0 H 9106516303) CL (test code = 101 mmol/L 98-108 9852581246) CO2 TOTAL (test code = 27 mmol/L 23-31 7740760841) AGAP (test code = 12 2-16 5592798380) BUN (test code = 30 mg/dL 7-23 H 9772877867) GLUCOSE (test code = 189 mg/dL 70-110 H 6739857778) CREATININE (test code = 1.24 mg/dL 0.60-1.25 8504831448) TOTAL BILI (test code = 0.4 mg/dL 0.1-1.1 6405824462) CALCIUM (test code = 9.3 mg/dL 8.6-10.6 0425394186) T PROTEIN (test code = 8.0 g/dL 6.3-8.2 8249657476) ALBUMIN (test code = 4.1 g/dL 3.5-5.0 4659126846) ALK PHOS (test code = 107 U/L 34-122 0886136972) ALTv (test code = 43 U/L 5-50 2-6) AST(SGOT) (test code = 38 U/L 13-40 5057490306) eGFR (test code = 60.5 mL/min/1.73m2 8445444926) MOE (test code = MOE) Association of [...] tests). Lab Interpretation Abnormal (test code = 99486-0) [facility] with [id number] 03:23:09 Test Item Value Reference Range Interpretation Comments WBC (test code = 6.48 See_Comment [Automated 7990-2) message] The sy stem which generated this [...] RDW-SD (test code = 49.0 fL 38.5-51.6 27384-9) RDW-CV (test code = 15.0 % 12.1-15.4 788-0) PLT (test code = 542 See_Comment H [Automated 777-3) message] The sy stem which generated this result transmitted reference range : 150 - 328 10*3/ ?L. The reference r maggi was not used to interpret this result as normal/abnormal . MPV (test code = 9.6 fL 9.8-13.0 L 03200-4) NRBC/100 WBC (test 0.0 See_Comment [Automat ed code = 9175818006) message] The system which generated this result transmitted reference range : 0.0 - 10.0 /100 WBCs. The refer ence range was not u sed to interpret th is result as normal/abnormal . NRBC x10^3 (test code See_Comment [Auto mated = 3372048840) message] The s ystem which generated this result transmitted reference range : 10*3/?L. The reference range was not used to interpret this result as normal/abnormal . GRAN MAT (NEUT) % 60.7 % (test code = 770-8) IMM GRAN % (test code 0.50 % = 4718788348) LYMPH % (test code = 28.2 % 736-9) MONO % (test code = 6.9 % 5905-5) EOS % (test code = 2.5 % 713-8) BASO % (test code = 1.2 % 706-2) GRAN MAT x10^3(ANC) 3.93 10*3/uL 1.99-6.95 (test code = 5739986909) IMM GRAN x10^3 (test 0.03 10*3/uL 0.00-0.06 code = 1846619924) LYMPH x10^3 (test code 1.83 10*3/uL 1.09-3.23 = 731-0) MONO x10^3 (test code 0.45 10*3/uL 0.36-1.02 = 742-7) EOS x10^3 (test code = 0.16 10*3/uL 0.06-0.53 711-2) BASO x10^3 (test code 0.08 10*3/uL 0.01-0.09 = 704-7) Lab Interpretation Abnormal (test code = 06184-5) [facility] txywvhq9812-19-13 16:22:00 Test Item Value Reference Range Interpretation Comments POC glucose (test code = 245 mg/dL 65-100 H Ope rator Name: Marilin 66290-0) GarzaDevice ID: [id number] Lab Interpretation (test Abnormal code = 40546-9) [facility] zvyejet5164-79-06 16:22:00 Test Item Value Reference Range Interpretation Comments POC glucose (test code = 245 mg/dL 65-100 H Ope rator Name: Marilin 39391-9) GarzaDevice ID: [id number] Lab Interpretation (test Abnormal code = 82758-7) [facility] yuvmfsn3020-48-11 16:22:00 Test Item Value Reference Range Interpretation Comments POC glucose (test code = 245 mg/dL 65-100 H Ope rator Name: Marilin 62088-9) GarzaDevice ID: [id number] Lab Interpretation (test Abnormal code = 71956-8) [facility] gmkebvx0708-55-58 16:22:00 Test Item Value Reference Range Interpretation Comments POC glucose (test code = 245 mg/dL 65-100 H Ope rator Name: Marilin 71617-0) GarzaDevice ID: [id number] Lab Interpretation (test Abnormal code = 30029-9) [facility] surtioc6667-48-14 16:22:00 Test Item Value Reference Range Interpretation Comments POC glucose (test code = 245 mg/dL 65-100 H Ope rator Name: Marilin 91215-6) GarzaDevice ID: [id number] Lab Interpretation (test Abnormal code = 25614-0) [facility]2023-03-15 16:22:00 Test Item Value Reference Range Interpretation Comments POC glucose (test code = 245 mg/dL 65-100 H Ope rator Name: Marilin 33748-6) GarzaDevice ID: [id number] Lab Interpretation (test Abnormal code = 04872-4) [facility]2023-03-15 16:22:00 Test Item Value Reference Range Interpretation Comments POC glucose (test code = 245 mg/dL 65-100 H Ope rator Name: Marilin 45026-0) GarzaDevice ID: [id number] Lab Interpretation (test Abnormal code = 33973-3) [facility]2023-03-15 16:22:00 Test Item Value Reference Range Interpretation Comments POC glucose (test code = 245 mg/dL 65-100 H Ope rator Name: Marilin 30317-2) GarzaDevice ID: [id number] Lab Interpretation (test Abnormal code = 52244-1) [facility] [id number] 19:17:00 Test Item Value Reference Range Interpretation Comments IMP PCR (test NOT DETECTED Specimen Infor mationSpecimen code = Source: [facility] Site: 93279-6) Tissue [id number] 07 OXA-48 PCR NOT DETECTED (test code = 8006) [facility] occru3896-79-35 19:17:00 Test Item Value Reference Range Interpretation Comments IMP PCR (test NOT DETECTED Specimen Infor mationSpecimen code = Source: [facility] Site: 02260-7) Tissue [id number] 07 OXA-48 PCR NOT DETECTED (test code = 8006) [facility] mjdgw0930-86-47 19:17:00 Test Item Value Reference Range Interpretation Comments IMP PCR (test NOT DETECTED Specimen Infor mationSpecimen code = Source: [facility] Site: 16828-2) Tissue [id number] 07 OXA-48 PCR NOT DETECTED (test code = 8006) [facility] uzawz9497-45-62 19:17:00 Test Item Value Reference Range Interpretation Comments IMP PCR (test NOT DETECTED Specimen Infor mationSpecimen code = Source: [facility] Site: 83723-2) Tissue [id number] 07 OXA-48 PCR NOT DETECTED (test code = 8006) [facility] dvigx3365-29-73 19:17:00 Test Item Value Reference Range Interpretation Comments IMP PCR (test NOT DETECTED Specimen Infor mationSpecimen code = Source: [facility] Site: 24755-9) Tissue [id number] 07 OXA-48 PCR NOT DETECTED (test code = 8006) [facility] ivpju5790-44-56 19:17:00 Test Item Value Reference Range Interpretation Comments IMP PCR (test NOT DETECTED Specimen Infor mationSpecimen code = Source: [facility] Site: 51803-2) Tissue [id number] 07 OXA-48 PCR NOT DETECTED (test code = 8006) [facility] orpij1321-01-27 19:17:00 Test Item Value Reference Range Interpretation Comments IMP PCR (test NOT DETECTED Specimen Infor mationSpecimen code = Source: [facility] Site: 26480-0) Tissue [id number] 07 OXA-48 PCR NOT DETECTED (test code = 8006) [facility] dndar1129-33-51 19:17:00 Test Item Value Reference Range Interpretation Comments IMP PCR (test NOT DETECTED Specimen Infor mationSpecimen code = Source: [facility] Site: 64740-5) Tissue [id number] 07 OXA-48 PCR NOT DETECTED (test code = 8006) [facility] bnchwhr2981-38-66 13:15:00 Test Item Value Reference Range Interpretation Comments Anaerobic No anaerobic Specimen culture isolate organisms InformationS pecimen (test code = isolated. Source: TissueS pecimen 88535-9) Site: Leg: Left Lower Extremity - Cul ture [facility] [id number] 13:15:00 Test Item Value Reference Range Interpretation Comments Anaerobic No anaerobic Specimen culture isolate organisms InformationS pecimen (test code = isolated. Source: TissueS pecimen 33169-5) Site: Leg: Left [facility]2023-03-13 13:15:00 Test Item Value Reference Range Interpretation Comments Anaerobic No anaerobic Specimen culture isolate organisms InformationS pecimen (test code = isolated. Source: TissueS pecimen 77073-7) Site: Leg: Left Lower Extremity [facility]2023-03-13 13:15:00 Test Item Value Reference Range Interpretation Comments Anaerobic No anaerobic Specimen culture isolate organisms InformationS pecimen (test code = isolated. Source: TissueS pecimen 53574-2) Site: Leg: Left [facility]2023-03-13 13:15:00 Test Item Value Reference Range Interpretation Comments Anaerobic No anaerobic Specimen culture isolate organisms InformationS pecimen (test code = isolated. Source: TissueS pecimen 65270-0) Site: Leg: Left Lower Extremity [facility]2023-03-13 13:15:00 Test Item Value Reference Range Interpretation Comments Anaerobic No anaerobic Specimen culture isolate organisms InformationS pecimen (test code = isolated. Source: TissueS akilahimen 61633-0) Site: Leg: Left Lower Extremity [facility]2023-03-13 13:15:00 Test Item Value Reference Range Interpretation Comments Anaerobic No anaerobic Specimen culture isolate organisms InformationS pecimen (test code = isolated. Source: TissueS pecimen 36034-9) Site: Leg: Left Lower Extremity [facility] mbfvlex9918-10-27 13:15:00 Test Item Value Reference Range Interpretation Comments Anaerobic No anaerobic Specimen culture isolate organisms InformationS pecimen (test code = isolated. Source: TissueS pecimen 65097-4) Site: Leg[facility] [id number] 14:49:00 Test Item Value Reference Range Interpretation Comments AFB stain No acid fast Specimen (test code = bacilli (AFB) InformationSpe stefanoen 676-7) seen. Source: TissueS pecimen Site: Leg: [facility] bcrrh0772-44-90 14:49:00 Test Item Value Reference Range Interpretation Comments AFB stain No acid fast Specimen (test code = bacilli (AFB) InformationSpe cimen 676-7) seen. Source: [facility] Site: Leg: Left Lower Extremity [facility] geijx2289-51-24 14:49:00 Test Item Value Reference Range Interpretation Comments AFB stain No acid fast Specimen (test code = bacilli (AFB) InformationSpe cimen 676-7) seen. Source: [facility] Site: Leg: Left Lower Extremity [facility] [id number] 14:49:00 Test Item Value Reference Range Interpretation Comments AFB stain No acid fast Specimen (test code = bacilli (AFB) InformationSpe cimen 676-7) seen. Source: [facility] Site: Leg: Left Lower Extremity [facility] xrifx3588-66-27 14:49:00 Test Item Value Reference Range Interpretation Comments AFB stain No acid fast Specimen (test code = bacilli (AFB) InformationSpe cimen 676-7) seen. Source: [facility] Site: Leg: [facility]ity [facility] [id number] 14:49:00 Test Item Value Reference Range Interpretation Comments AFB stain No acid fast Specimen (test code = bacilli (AFB) InformationSpe cimen 676-7) seen. Source: [facility] Site: Leg: Left Lower Extremity [facility] gowrc7168-10-67 14:49:00 Test Item Value Reference Range Interpretation Comments AFB stain No acid fast Specimen (test code = bacilli (AFB) InformationSpe cimen 676-7) seen. Source: [facility] Site: Leg: [facility] Lower [facility]ity [facility] bxvuq6162-06-38 14:49:00 Test Item Value Reference Range Interpretation Comments AFB stain No acid fast Specimen (test code = bacilli (AFB) InformationSpe cimen 676-7) seen. Source: [facility] Site: Leg: Left Lower Extremity - Cul [facility]ure [facility] [id number] 18:08:00 Test Item Value Reference Range Interpretation Comments Fungus smear No fungi Specimen (test code = observed. InformationSpec imen Source: 1443) TissueSpecimen Site: Leg: Left Lower Extr emity - Culture [facility] varjh7710-09-29 18:08:00 Test Item Value Reference Range Interpretation Comments Fungus smear No fungi Specimen (test code = observed. InformationSpec imen Source: 1443) TissueSpecimen Site: Leg: Left Lower Extr emity - Culture [facility] [id number] 18:08:00 Test Item Value Reference Range Interpretation Comments Fungus smear No fungi Specimen (test code = observed. InformationSpec imen Source: 1443) TissueSpecimen Site: Leg: Left Lower Extr emity - Culture [facility] srkcy8015-19-24 18:08:00 Test Item Value Reference Range Interpretation Comments Fungus smear No fungi Specimen (test code = observed. Informationedupristine imen Source: 1443) TissueSpecimen Site: Leg: Left Lower Extr emity - Culture [facility] [id number] 18:08:00 Test Item Value Reference Range Interpretation Comments Fungus smear No fungi Specimen (test code = observed. Informationedupristine imen Source: 1443) TissueSpecimen Site: Leg: Left Lower Extr emity - [facility] [id number] 18:08:00 Test Item Value Reference Range Interpretation Comments Fungus smear No fungi Specimen (test code = observed. Informationedupristine imen Source: 1443) TissueSpecimen Site: Leg: Left Lower Extr emity - Culture [facility] [id number] 18:08:00 Test Item Value Reference Range Interpretation Comments Fungus smear No fungi Specimen (test code = observed. Informationedupristine imen Source: 1443) TissueSpecimen Site: Leg: Left Lower Extr emity - [facility] wrsqu8303-76-67 18:08:00 Test Item Value Reference Range Interpretation Comments Fungus smear No fungi Specimen (test code = observed. Informationedupristine imen Source: 1443) TissueSpecimen Site: Leg: Left Lower Extr emity - Culture [facility] nreoc3796-14-32 17:14:00 Test Item Value Reference Range Interpretation Comments Gram stain Few Gram Specimen isolate (test negative rods InformationSp ecimen code = 1469) Source: TissueS [facility] Site: Leg: Left Lower Extremity - [facility] [id number] 17:14:00 Test Item Value Reference Range Interpretation Comments Gram stain Few Gram Specimen isolate (test negative rods InformationSp ecimen code = 1469) Source: TissueS [facility] Site: Leg: Left Lower Extremity - [facility] waxrd0974-58-00 17:14:00 Test Item Value Reference Range Interpretation Comments Gram stain Few Gram Specimen isolate (test negative rods InformationSp ecimen code = 1469) Source: TissueS [facility] Site: Leg: Left Lower Extremity - [facility] [id number] 17:14:00 Test Item Value Reference Range Interpretation Comments Gram stain Few Gram Specimen isolate (test negative rods InformationSp ecimen code = 1469) Source: [facility] Site: Leg: Left Lower Extremity [facility] ylnmb9956-38-24 17:14:00 Test Item Value Reference Range Interpretation Comments Gram stain Few Gram Specimen isolate (test negative rods InformationSp ecimen code = 1469) Source: TissueS [facility] Site: Leg: Left Lower Extremity - [facility] srrjj3756-20-22 17:14:00 Test Item Value Reference Range Interpretation Comments Gram stain Few Gram Specimen isolate (test negative rods InformationSp ecimen code = 1469) Source: [facility] Site: Leg: Left Lower Extremity - [facility] naqqh8168-89-55 17:14:00 Test Item Value Reference Range Interpretation Comments Gram stain Few Gram Specimen isolate (test negative rods InformationSp ecimen code = 1469) Source: TissueS [facility] Site: Leg: Left Lower Extremity - [facility] sxthq7790-81-38 17:14:00 Test Item Value Reference Range Interpretation Comments Gram stain Few Gram Specimen isolate (test negative rods InformationSp ecimen code = 1469) Source: TissueS [facility] Site: Leg: [facility] lmsshdo8725-39-36 22:46:05 Test Item Value Reference Range Interpretation Comments Case number (test code = [id number]) Surgical pathology See link below for report (test code = PDF Lab Report 2255) Result status (test code This is Final Report = [id number]) for [address] pathology azxkhby0972-04-50 22:46:05 Test Item Value Reference Range Interpretation Comments Case number (test code = [id number]) Surgical pathology See link below for report (test code = PDF Lab Report 2255) Result status (test code This is Final Report = [id number]) for [address] pathology [id number] 22:46:05 Test Item Value Reference Range Interpretation Comments Case number (test code = [id number]) Surgical pathology See link below for report (test code = PDF Lab Report 2255) Result status (test code This is Final Report = [id number]) for [address] pathology [id number] 22:46:05 Test Item Value Reference Range Interpretation Comments Case number (test code = [id number]) Surgical pathology See link below for report (test code = PDF Lab Report 2255) Result status (test code This is Final Report = [id number]) for [address] pathology [id number] 22:46:05 Test Item Value Reference Range Interpretation Comments Case number (test code = [id number]) Surgical pathology See link below for report (test code = PDF Lab Report 2255) Result status (test code This is Final Report = [id number]) for [address] pathology [id number] 22:46:05 Test Item Value Reference Range Interpretation Comments Case number (test code = [id number]) Surgical pathology See link below for report (test code = PDF Lab Report 2255) Result status (test code This is Final Report = [id number]) for [address] pathology [id number] 22:46:05 Test Item Value Reference Range Interpretation Comments Case number (test code = [id number]) Surgical pathology See link below for report (test code = PDF Lab Report 2255) Result status (test code This is Final Report = [id number]) for [address] pathology [id number] 22:46:05 Test Item Value Reference Range Interpretation Comments Case number (test code = [id number]) Surgical pathology See link below for report (test code = PDF Lab Report 2255) Result status (test code This is Final Report = [id number]) [id number] [facility] (w Contrast, Strain and 3D if needed)2022-05-10 21:23:23 Test Item Value Reference Interpretation Comments Range Ao Root Diameter 3.34 cm (test code = 6564826888) AoV Area, Vmax (test 3.02 cm2 >=1.5 code = 9919651776) AoV Area, VTI (test 3.07 cm2 code = 9487400243) AoV Mean PG (test 4.26 mmHg code = 2080449895) AoV Peak PG (test 6.38 mmHg code = 4230901178) AoV Vmax (test code 1.42 m/s = 3363357772) AoV VTI (test code = 0.26 m 6613684837) BSA Rashid (test code 2.11 m2 = 6943220008) BSA (test code = 2.02 m2 8638019149) IVS,d (test code = 0.84 cm 0.6-0 3484324419) IVS/LVPW,2D (test 0.98 code = 8602666405) Left Atrium 3.49 cm Dimension Anterior (test code = 8516495732) LV,d (test code = 4.74 cm 3551489073) LV EF,2D (test code 64.34 % = 7578246266) LV,s (test code = 3.36 cm 9904261838) LVOT area (test code 3.53 cm2 = 3294086190) LVOT Diam,S (test 2.12 cm code = 7901189158) LVOT Vmax (test code 1.13 m/s = 9794876143) LVOT VTI (test code 0.21 m = 5456478885) LVPWD,d (test code = 0.85 cm 0.60-1.19 5591167175) MV E A ratio (test 0.86 code = 9706578489) AoV area i VTI BSA 1.52 cm2/m2 >=0.85 Garrard (test code = 5326808635) BMI (test code = 31.32 kg/m2 8861139903) E wave decelartion 89.56 See_Comment A [Automat ed time (test code = message] T he 0021458450) system which generated this result transmitted reference range : 200 msec. The reference range was not used to interpret this result as normal/abnormal . MV Peak A Quirino (test 0.88 m/s code = 0303104035) MV valve area p 1/2 8.47 cm2 method (test code = 9706940915) MV Peak E Quirino (test 0.75 m/s code = 9522059024) MV stenosis pressure 25.97 ms 1/2 time (test code = 5440802818) LVOT stroke volume 0.74 ml (test code = 8173936428) AV LVOT peak 4.69 mmHg gradient (test code = 5590934625) Ao Root Diameter 3.34 cm (test code = 5431544973) MV mean gradient 1.92 mmHg (test code = 3118004097) LV SYS VOL (test 46.16 ml 21-61 code = 3237650139) LV ANDERSON VOL (test 104.46 ml 62-150 code = 1255381043) LA area s A4C (test 17.60 cm2 code = 8715082722) LV SI Teich 2D (test 28.83 ml/m2 code = 5350387579) LV SV Teich 2D (test 58.30 ml code = 7453106313) LV Vol s Teich PSAX 46.16 ml (test code = 0968065747) LVOT CI (test code = 3.53 l/min/m2 8002849461) LVOT CO (test code = 7.14 l/min 8783286287) LVOT HR for LVOT CO 98.89 bpm (test code = 6335436658) LVOT SI (test code = 35.72 ml/m2 6057021052) MR peak grad (test 3.00 mmHg code = 8814484113) MV Vmax (test code = 0.87 m 2986586010) MV VTI Tips (test 0.14 m code = 8758966137) BSA Haycock (test 2.10 m2 code = 9390623792) AoV Vmn (test code = 0.97 m/s 3106295132) IVS s 2D (test code 1.17 cm = 7890274609) LV FS Teich 2D (test 29.09 code = 3863346228) MV AE ratio (test 1.17 code = 0804847098) LV FS Cube 2D (test 29.09 code = 7985551512) LVOT Vmn (test code 0.75 = 9893227409) Pt Size (test code = 170.18 2540788729) Pt Wt (test code = 90.72 3265777224) Aov area Vmn (test 3.05 cm2 code = 0291859549) LVOT mean grad (test 2.57 mmHg code = 6651643002) 85 of MPHR (test 140.25 code = 4251554328) AoV area I VMN bsa 1.51 cm2/m2 (test code = 4920712101) Calc MPHR (test code 165.01 bpm = 0868577824) IVS pct thck PLAX 39.76 % (test code = 6213082759) LV SI Cube 2D (test 33.91 ml/m2 code = 2032599407) LV SV Cube 2D (test 68.57 ml code = 9179677562) LV vol d cube 2D 106.56 ml (test code = 9528363619) LV vol s cube 2D 38.00 ml (test code = 9638725568) LVPW pct thck PLAX 35.24 % (test code = 0267358943) LVPW s PLAX (test 1.16 cm code = 9543978117) MV Decel slope (test 8.38 m/s2 code = 9339563649) Pred Exer Dur R1 9.48 (test code = 2793266184) Pred METS R1 (test 9.75 code = 0757082379) LA Vol MOD A4C (test 46.56 ml code = 6727500941) Velocity Ratio 0.80 m/s (V1/V2) (test code = 4689) EF (test code = 56 % 4872496359) E/A ratio (test code 0.85 = 8018821239) LVOT VTI (CM) (test 21.00 cm code = 9259802766) MOE (test code = MOE) Left Ventricle: [...] normal. Lab Interpretation Abnormal (test code = 08702-5) [facility], (w Contrast, Strain and 3D if needed)2022-05-10 21:23:23 Test Item Value Reference Interpretation Comments Range Ao Root Diameter 3.34 cm (test code = 7237492992) AoV Area, Vmax (test 3.02 cm2 See_Comment [Autom ated code = 1482380796) message] The system which generated this result transmitted reference range : >=1.5. The reference range was not used to interpret this result as normal/abnormal . AoV Area, VTI (test 3.07 cm2 code = 3445102051) AoV Mean PG (test 4.26 mmHg code = 1805530503) AoV Peak PG (test 6.38 mmHg code = 4040697541) AoV Vmax (test code 1.42 m/s = 0295637771) AoV VTI (test code = 0.26 m 5053617082) BSA Rashid (test code 2.11 m2 = 5009352719) BSA (test code = 2.02 m2 6454756873) IVS,d (test code = 0.84 cm 0.6-8 8055776704) IVS/LVPW,2D (test 0.98 code = 3295328395) Left Atrium 3.49 cm Dimension Anterior (test code = 3765553594) LV,d (test code = 4.74 cm 7752122488) LV EF,2D (test code 64.34 % = 0972747033) LV,s (test code = 3.36 cm 4000309315) LVOT area (test code 3.53 cm2 = 1034503570) LVOT Diam,S (test 2.12 cm code = 1361889166) LVOT Vmax (test code 1.13 m/s = 7509824837) LVOT VTI (test code 0.21 m = 4465105371) LVPWD,d (test code = 0.85 cm 0.60-1.19 5920335180) MV E A ratio (test 0.86 code = 3278779418) AoV area i VTI BSA 1.52 cm2/m2 See_Comment [Automat ed Jean Claude (test code = message] The 0991310951) system which generated this result transmitted reference range : >=0.85. The reference range was not used to interpret this result as normal/abnormal . BMI (test code = 31.32 kg/m2 5665135489) E wave decelartion 89.56 See_Comment A [Automat ed time (test code = message] T he 4984666181) system which generated this result transmitted reference range : 200 msec. The reference range was not used to interpret this result as normal/abnormal . MV Peak A Quirino (test 0.88 m/s code = 1302298478) MV valve area p 1/2 8.47 cm2 method (test code = 8015542476) MV Peak E Quirino (test 0.75 m/s code = 4559437259) MV stenosis pressure 25.97 ms 1/2 time (test code = 0523110105) LVOT stroke volume 0.74 ml (test code = 8332299642) AV LVOT peak 4.69 mmHg gradient (test code = 0530783460) Ao Root Diameter 3.34 cm (test code = 5535967851) MV mean gradient 1.92 mmHg (test code = 4022774342) LV SYS VOL (test 46.16 ml 21-61 code = 3079750997) LV ANDERSON VOL (test 104.46 ml 62-150 code = 7122616744) LA area s A4C (test 17.60 cm2 code = 5045397808) LV SI Teich 2D (test 28.83 ml/m2 code = 5866494944) LV SV Teich 2D (test 58.30 ml code = 1574892412) LV Vol s Teich PSAX 46.16 ml (test code = 1290239362) LVOT CI (test code = 3.53 l/min/m2 7362011088) LVOT CO (test code = 7.14 l/min 3435501264) LVOT HR for LVOT CO 98.89 bpm (test code = 1095734771) LVOT SI (test code = 35.72 ml/m2 9978018815) MR peak grad (test 3.00 mmHg code = 0729616296) MV Vmax (test code = 0.87 m 5089845453) MV VTI Tips (test 0.14 m code = 8116035396) BSA Haycock (test 2.10 m2 code = 3546679482) AoV Vmn (test code = 0.97 m/s 4696896147) IVS s 2D (test code 1.17 cm = 9811346909) LV FS Teich 2D (test 29.09 code = 0423980064) MV AE ratio (test 1.17 code = 0876835656) LV FS Cube 2D (test 29.09 code = 3094064611) LVOT Vmn (test code 0.75 = 0752262597) Pt Size (test code = 170.18 9133467445) Pt Wt (test code = 90.72 6377807080) Aov area Vmn (test 3.05 cm2 code = 1594594774) LVOT mean grad (test 2.57 mmHg code = 0148930372) 85 of MPHR (test 140.25 code = 1861558121) AoV area I VMN bsa 1.51 cm2/m2 (test code = 4665953756) Calc MPHR (test code 165.01 bpm = 4223480628) IVS pct thck PLAX 39.76 % (test code = 7575769367) LV SI Cube 2D (test 33.91 ml/m2 code = 9235984935) LV SV Cube 2D (test 68.57 ml code = 6052838255) LV vol d cube 2D 106.56 ml (test code = 7367569863) LV vol s cube 2D 38.00 ml (test code = 0551226145) LVPW pct thck PLAX 35.24 % (test code = 8007951077) LVPW s PLAX (test 1.16 cm code = 9623019321) MV Decel slope (test 8.38 m/s2 code = 0140078493) Pred Exer Dur R1 9.48 (test code = 8734882280) Pred METS R1 (test 9.75 code = 2382234999) LA Vol MOD A4C (test 46.56 ml code = 3338011009) Velocity Ratio 0.80 m/s (V1/V2) (test code = 4689) EF (test code = 56 % 8365244517) E/A ratio (test code 0.85 = 9687820157) LVOT VTI (CM) (test 21.00 cm code = 5474007634) MOE (test code = MOE) Left Ventricle: [...] normal. Lab Interpretation Abnormal (test code = 46636-8) [facility] WjfxtmqoTURD-CpI-0 (COVID-19) RNA [Presence] in Respiratory specimen by LEILANI with probe [id number] 00:11:33 Test Item Value Reference Range Interpretation Comments SARS-CoV-2 (COVID-19) RNA Not detected [Presence] in Respiratory specimen by LEILANI with probe detection (test code = 68772-2) Whether patient is employed in a Unknown healthcare setting (test code = 48546-6) Whether the patient has symptoms Unknown related to condition of interest (test code = 16703-0) Whether the patient was Unknown hospitalized for condition of interest (test code = 22847-3) Whether the patient was admitted Unknown to intensive care unit (ICU) for condition of interest (test code = 58985-2) Whether patient resides in a Unknown congregate care setting (test code = 91257-7) status (test code = Unknown 75341-8) Date and time of symptom onset Unknown (test code = 82064-7) [facility] [id number] 20:52:15 Test Item Value Reference Range Interpretation Comments BSA (test code = 2.03 m2 7859046032) BSA Rashid (test code 2.12 m2 = 6124319174) BSA Haycock (test 2.11 m2 code = 0593406495) Pred METS R1 (test 9.76 code = 2906695031) Pred Exer Dur R1 9.48 (test code = 9034078874) Calc MPHR (test 165.06 bpm code = 3109986103) 85 of MPHR (test 140.30 code = 3166175918) Pt Wt (test code = 91.17 7784730013) Pt Size (test code 170.18 = 1595117815) BMI (test code = 31.48 kg/m2 9405918075) MOE (test code = MOE) Left Ventricle: [...] study. The probe was inserted by the interpretive naturalist. There was no probe insertion difficulty. Anesthesia was given. Refer to anesthesia note. The patient tolerated the procedure well and recovered without any complications.Prior StudyThere were no significant changes noted when compared to the prior TTE study. [facility] [id number] 20:52:15 Test Item Value Reference Range Interpretation Comments BSA (test code = 2.03 m2 4154913391) BSA Rashid (test code 2.12 m2 = 3892307808) BSA Haycock (test 2.11 m2 code = 4238434300) Pred METS R1 (test 9.76 code = 6073787175) Pred Exer Dur R1 9.48 (test code = 8590177219) Calc MPHR (test 165.06 bpm code = 1234585401) 85 of MPHR (test 140.30 code = 4661931418) Pt Wt (test code = 91.17 0649042917) Pt Size (test code 170.18 = 2324006275) BMI (test code = 31.48 kg/m2 7367962937) MOE (test code = MOE) Left Ventricle: [...] study. The probe was inserted by the interpretive naturalist. There was no probe insertion difficulty. Anesthesia was given. Refer to anesthesia note. The patient tolerated the procedure well and recovered without any complications.Prior StudyThere were no significant changes noted when compared to the prior TTE study. [facility] myocardial qgazxruav5118-97-06 21:20:55 Test Item Value Reference Range Interpretation Comments Target HR (test 166.00 bpm code = 1426177391) Resting HR (test 99 BPM code = 7177898433) Resting BP (test 112/70 mmHg code = 2762080136) O2 sat rest (test 99 % code = 3034735332) Post Peak HR (test 113 bpm code = 4504506499) Percent HR (test 68.07 % code = 5197519723) Post Peak BP (test 112/70 mmHg code = 0946668577) O2 sat peak (test 98 % code = 6370461873) Nuc Stress EF (test 63 % code = 4071314613) Radiology Study observation (narrative) (test code = 66894-4) MOE (test code = MOE) Conclusion: Abnormal [...] The resting administration time was at 10:07 CALENDER INSPECTOR on 04/17/2022. Resting images obtained at 11:22 CALENDER INSPECTOR. Images performed at stress after an injection of 30.5 mCi. The stress administration time was at 12:20 CALENDER INSPECTOR on 04/17/2022. Stress images obtained at 13:36 CALENDER INSPECTOR.Nuclear Study QualityA perfusion 1-day rest/stress protocol was [...] Scores: SDS Score: N/A Percentage Abnormal: N/A [facility] myocardial enqcihagr1218-07-94 21:20:55 Test Item Value Reference Range Interpretation Comments Target HR (test 166.00 bpm code = 2716950520) Resting HR (test 99 BPM code = 9343057820) Resting BP (test 112/70 mmHg code = 2777524314) O2 sat rest (test 99 % code = 3626220462) Post Peak HR (test 113 bpm code = 1188467907) Percent HR (test 68.07 % code = 1644961045) Post Peak BP (test 112/70 mmHg code = 5446343001) O2 sat peak (test 98 % code = 5664235868) Nuc Stress EF (test 63 % code = 9313927388) Radiology Study observation (narrative) (test code = 54342-9) MOE (test code = MOE) Conclusion: Abnormal [...] The resting administration time was at 10:07 CALENDER INSPECTOR on 04/17/2022. Resting images obtained at 11:22 CALENDER INSPECTOR. Images performed at stress after an injection of 30.5 mCi. The stress administration time was at 12:20 CALENDER INSPECTOR on 04/17/2022. Stress images obtained at 13:36 CALENDER INSPECTOR.Nuclear Study QualityA perfusion 1-day rest/stress protocol was [...] Scores: SDS Score: N/A Percentage Abnormal: N/A [facility] stress [id number] 21:15:16 Test Item Value Reference Range Interpretation Comments Resting HR (test code 99 = 9045139761) Resting BP (test code 112&70 = 8277567944) Peak MET Achieved 1.0 (test code = 0219890711) Protocol Name (test LEXISCAN code = 7757502548) Time in Exercise Phase 00:00:53 (test code = 9259386624) Max Systolic BP (test 112 code = 1153762636) Max Diastolic BP (test 70 code = 4941493702) Max Heart Rate (test 113 code = 6210225911) Max Predicted Heart 166 Rate (test code = 2754061913) Target HR Formula (220 - Age)*100% (test code = 9960442857) Test Indication (test code = 3375662389) Arrhy During Ex (test none code = 8679322035) ECG Interp Before EX atrial fibrillation (test code = 6947574006) ECG Interp During Ex NONSPECIFIC (test code = 2462845094) Ex Summary Comment Myoview to follow (test code = 1448474735) Chest Pain Statement none (test code = 5023196930) Overall HR Response to PHARMACOLOGIC STRESS Exercise (test code = 0834518706) Overall BP Response To normal resting BP - Exercise (test code = appropriate response 5418034846) Reason for Termination Protocol completed (test code = 3623831642) Stress Test Impression MYOVIEW TO (test code = FOLLOW--Electronically 3736877862) Signed By Jaspreet Cannon MD ([id number]) on 04/18/2022 3:15:[address] [facility] stress [id number] 21:15:16 Test Item Value Reference Range Interpretation Comments Resting HR (test code 99 = 7050231670) Resting BP (test code 112&70 = 9026911347) Peak MET Achieved 1.0 (test code = 9524603214) Protocol Name (test LEXISCAN code = 6518429591) Time in Exercise Phase 00:00:53 (test code = 1791103149) Max Systolic BP (test 112 code = 6916004059) Max Diastolic BP (test 70 code = 5621678884) Max Heart Rate (test 113 code = 1502280830) Max Predicted Heart 166 Rate (test code = 7754614234) Target HR Formula (220 - Age)*100% (test code = 6147596170) Test Indication (test code = 6322203902) Arrhy During Ex (test none code = 6202762578) ECG Interp Before EX atrial fibrillation (test code = 0721886334) ECG Interp During Ex NONSPECIFIC (test code = 7388725239) Ex Summary Comment Myoview to follow (test code = 1124690968) Chest Pain Statement none (test code = 7254337817) Overall HR Response to PHARMACOLOGIC STRESS Exercise (test code = 5132717431) Overall BP Response To normal resting BP - Exercise (test code = appropriate response 8123315082) Reason for Termination Protocol completed (test code = 3759877462) Stress Test Impression MYOVIEW TO (test code = FOLLOW--Electronically 5283732205) Signed By Jaspreet Cannon MD ([id number]) on 04/18/2022 3:15:13 PM [facility], (w Contrast, Strain and 3D if needed)2022-04-14 21:07:42 Test Item Value Reference Interpretation Comments Range EF (test code = 59 % 52-72 0438330059) LV EF,BP (test code 57.09 % = 8273105265) IVS,d (test code = 1.13 cm 0.6-1 A 5681583057) IVS s 2D (test code 1.32 cm = 5002603987) LVPWD,d (test code 1.09 cm 0.60-1.19 = 4316505450) LVPW s PLAX (test 1.37 cm code = 2657004258) LV,s (test code = 3.04 cm 4300194077) LVOT Diam,S (test 2.09 cm code = 6783617412) LV ANDERSON VOL (test 88.75 ml 62-150 code = 1655220977) LV SYS VOL (test 36.02 ml 21-61 code = 6610347367) LV Vol,d A2C (test 82.11 mL code = 9881124983) LV Vol,s A2C (test 34.60 mL code = 9050099808) LV Vol,d A4C (test 81.73 ml code = 6052443742) LV Vol,s A4C (test 37.26 ml code = 4222325635) MV Peak E Quirino (test 0.89 m/s code = 0829002446) MV Peak A Quirino (test 0.25 m/s code = 6072944059) E/A ratio (test 3.56 <=0.8 A code = 6488741869) E wave decelartion 177.02 See_Comment A [Automat ed time (test code = message] T he 0581122095) system which generated this result transmitted reference range: 200 msec. The reference range was not used to interpret this result as normal/abnormal . LV Systolic Volume 17.13 mL/m2 11-31 Index (test code = 3483709478) LV Diastolic Volume 40.65 mL/m2 34-74 Index (test code = 5732116632) LV,d (test code = 4.42 cm 6548777948) IVS/LVPW,2D (test 1.03 code = 5923184250) LV EF,2D (test code 67.66 % = 9335076173) LV FS Cube 2D (test 31.36 code = 4481593021) LV FS Teich 2D 31.36 (test code = 4348833554) LV SI Teich 2D 26.07 ml/m2 (test code = 7453719306) LV SV Teich 2D 52.72 ml (test code = 7158075771) LV Vol s Teich PSAX 36.02 ml (test code = 8686089289) LVOT stroke volume 0.48 cm3 (test code = 2238189298) Left Atrium 3.37 cm <=4 Dimension Anterior (test code = 5549071379) LA Vol MOD A4C 44.03 ml (test code = 8900602104) LA area s A4C (test 16.42 cm2 code = 6522089575) LVOT area (test 3.43 cm2 code = 1605450158) LVOT Vmax (test 0.86 m/s code = 1022717666) AoV Mean PG (test 3.31 See_Comment [Automate d code = 9854777396) message] The system which generated this result transmitted reference range: 20 mmHg. The reference range was not used to interpret this result as normal/abnormal . AoV Peak PG (test 4.75 mmHg code = 5185501772) AV LVOT peak 2.89 mmHg gradient (test code = 4242943752) AoV area i VTI BSA 1.33 cm2/m2 >=0.85 Garrard (test code = 2715608837) AoV Area, Vmax 2.67 cm2 >=1.5 (test code = 7886985307) LVOT VTI (CM) (test 14.00 cm code = 5527824480) AoV Vmax (test code 1.11 m/s = 8944058571) AoV Vmn (test code 0.88 m/s = 6597293717) AoV Area, VTI (test 2.69 cm2 code = 2525990588) LVOT CO (test code 5.03 l/min = 7877609733) LVOT CI (test code 2.49 l/min/m2 = 7549127177) LVOT HR for LVOT CO 113.01 bpm (test code = 3086311738) LVOT SI (test code 22.01 ml/m2 = 5555620036) Velocity Ratio 0.77 m/s (V1/V2) (test code = 4689) MV stenosis 41.13 ms <=150 pressure 1/2 time (test code = 2995715006) MV E A ratio (test 6.25 code = 0173195722) MV valve area p 1/2 5.35 cm2 method (test code = 2551729191) E prime lat (test 0.04 code = 9248148996) E prime sept (test 0.03 code = 3666815847) RVOT Vmax (test 0.87 m/s code = 8295829450) PV Pk Grad (test 2.43 See_Comment [Automated code = 2038776326) message] The system which generated this result transmitted reference range: 36 mmHg. The reference range was not used to interpret this result as normal/abnormal . RVOT pk grad (test 3.02 mmHg code = 0776198734) PV VMAX (test code 0.78 m/s <=3 = 7342942517) Ao Root Diameter 2.77 cm <=3.99 (test code = 2507461365) Ao Root Diameter 2.77 cm (test code = 0269857375) Ascending aorta 2.95 cm (test code = 3845132154) BSA (test code = 2.02 m2 8668890028) BSA Rashid (test code 2.11 m2 = 0474738996) BSA Haycock (test 2.10 m2 code = 9190107412) Pred METS R1 (test 9.76 code = 5056029047) Pred Exer Dur R1 9.49 (test code = 6940833399) MV Decel slope 5.02 m/s2 (test code = 5175713495) LVPW pct thck PLAX 25.29 % (test code = 6598405596) LV vol s cube 2D 27.97 ml (test code = 9538773709) LV vol d cube 2D 86.49 ml (test code = 5308267623) LV SV Cube 2D (test 58.52 ml code = 5746428384) LV SI Cube 2D (test 28.94 ml/m2 code = 4943067625) IVS pct thck PLAX 16.96 % (test code = 5973369020) Calc MPHR (test 165.08 bpm code = 8431525750) AoV area I VMN bsa 1.20 cm2/m2 (test code = 3425926927) 85 of MPHR (test 140.32 code = 9341364029) RVOT VTI (test code 0.14 m = 1004384853) RVOT Vmn (test code 0.59 m/s = 9516638874) RVOT mean grad 1.54 mmHg (test code = 3766914972) LVOT mean grad 1.67 mmHg (test code = 8166465403) Aov area Vmn (test 2.42 cm2 code = 7786781661) Pt Wt (test code = 90.72 9283310019) Pt Size (test code 170.18 = 4893147284) MV AE ratio (test 0.16 code = 4540829134) LVOT Vmn (test code 0.61 = 3896235325) PV Vmn (test code = 17.84 m/s 9203501217) LV Vol Index s 41.57 ml/m2 bpmod BSA Garrard (test code = 0034126465) LV SI MOD BP BSA 23.73 ml/m2 Garrard (test code = 6427691608) BMI (test code = 31.32 kg/m2 8345091374) LV Vol,s BP (test 36.07 nl code = 1803990594) LV Vol,d BP (test 84.05 ml code = 8452175948) LV SV,BP (test code 47.99 % = 5839148688) LV SV,A4C (test 44.47 % code = 8854186390) LV SV,A2C (test 47.51 % code = 6685008777) [place],s A4C 6.78 cm (test code = 4374582865) [place],s A2C 6.94 cm (test code = 7909597604) [place],d A4C 7.48 cm (test code = 1858188492) [place],d A2C 7.91 cm (test code = 3922261202) LV EF,A4C (test 54.41 % code = 4868930746) LV EF,A2C (test 57.86 % code = 3440117155) AoV VTI (test code 0.16 m = 7229924192) LVOT VTI (test code 0.14 m = 9555393516) MOE (test code = MOE) Left Ventricle: [...] status. Lab Interpretation Abnormal (test code = 26437-1) [facility], (w Contrast, Strain and 3D if needed)2022-04-14 21:07:42 Test Item Value Reference Interpretation Comments Range EF (test code = 59 % 52-72 [id number]) LV EF,BP (test code 57.09 % = 0555962490) IVS,d (test code = 1.13 cm 0.6-1 A 3010391799) IVS s 2D (test code 1.32 cm = 8613111880) LVPWD,d (test code 1.09 cm 0.60-1.19 = 0167157859) LVPW s PLAX (test 1.37 cm code = 5002767050) LV,s (test code = 3.04 cm 0245103213) LVOT Diam,S (test 2.09 cm code = 3044766669) LV [facility] VOL (test 88.75 ml 62-150 code = 5136232804) LV SYS VOL (test 36.02 ml 21-61 code = 7767968748) LV Vol,d A2C (test 82.11 mL code = 1829846599) LV Vol,s A2C (test 34.60 mL code = 7272906605) LV Vol,d A4C (test 81.73 ml code = 5764207235) LV Vol,s A4C (test 37.26 ml code = 8864363197) MV Peak E Quirino (test 0.89 m/s code = 4678232378) MV Peak A Quirino (test 0.25 m/s code = 5011593515) E/A ratio (test 3.56 See_Comment A [Automated code = 3733360079) message] The system which generated this result transmitted reference range: <=0.8. The reference range was not used to interpret this result as normal/abnormal . E wave decelartion 177.02 See_Comment A [Automat ed time (test code = message] T he 6434188214) system which generated this result transmitted reference range: 200 msec. The reference range was not used to interpret this result as normal/abnormal . LV Systolic Volume 17.13 mL/m2 11-31 Index (test code = 6905368962) LV Diastolic Volume 40.65 mL/m2 34-74 Index (test code = 8133996254) LV,d (test code = 4.42 cm 4235281774) IVS/LVPW,2D (test 1.03 code = 8483528788) LV EF,2D (test code 67.66 % = 6442876057) LV FS Cube 2D (test 31.36 code = 8179102851) LV FS Teich 2D 31.36 (test code = 1673619715) LV SI Teich 2D 26.07 ml/m2 (test code = 5852285563) LV SV Teich 2D 52.72 ml (test code = 0078418045) LV Vol s Teich PSAX 36.02 ml (test code = 2532402535) LVOT stroke volume 0.48 cm3 (test code = 6087055870) Left Atrium 3.37 cm See_Comment [Automated Dimension Anterior message] The (test code = system which 9554616054) generated this result transmitted reference range: <=4. The reference range was not used to interpret this result as normal/abnormal . LA Vol MOD A4C 44.03 ml (test code = 1817503259) LA area s A4C (test 16.42 cm2 code = 5308867273) LVOT area (test 3.43 cm2 code = 7235175196) LVOT Vmax (test 0.86 m/s code = 3775379212) AoV Mean PG (test 3.31 See_Comment [Automate d code = 2142309769) message] The system which generated this result transmitted reference range: 20 mmHg. The reference range was not used to interpret this result as normal/abnormal . AoV Peak PG (test 4.75 mmHg code = 8484506013) AV LVOT peak 2.89 mmHg gradient (test code = 8545014179) AoV area i VTI BSA 1.33 cm2/m2 See_Comment [Automat ed Garrard (test code = message] The 4916525454) system which generated this result transmitted reference range: >=0.85. The reference range was not used to interpret this result as normal/abnormal . AoV Area, Vmax 2.67 cm2 See_Comment [Automated (test code = message] The 3103308682) system which generated this result transmitted reference range: >=1.5. The reference range was not used to interpret this result as normal/abnormal . LVOT VTI (CM) (test 14.00 cm code = 2053021627) AoV Vmax (test code 1.11 m/s = 7730686486) AoV Vmn (test code 0.88 m/s = 7706630996) AoV Area, VTI (test 2.69 cm2 code = 1816306115) LVOT CO (test code 5.03 l/min = 2016202817) LVOT CI (test code 2.49 l/min/m2 = 0762688126) LVOT HR for LVOT CO 113.01 bpm (test code = 8749472729) LVOT SI (test code 22.01 ml/m2 = 6509107793) Velocity Ratio 0.77 m/s (V1/V2) (test code = 4689) MV stenosis 41.13 ms See_Comment [Automated pressure 1/2 time message] T he (test code = system which 5913202989) generated this result transmitted reference range: <=150. The reference range was not used to interpret this result as normal/abnormal . MV E A ratio (test 6.25 code = 6603362313) MV valve area p 1/2 5.35 cm2 method (test code = 7583600013) E prime lat (test 0.04 code = 3539832913) E prime sept (test 0.03 code = 9020575257) RVOT Vmax (test 0.87 m/s code = 1159484419) PV Pk Grad (test 2.43 See_Comment [Automated code = 3387100015) message] The system which generated this result transmitted reference range: 36 mmHg. The reference range was not used to interpret this result as normal/abnormal . RVOT pk grad (test 3.02 mmHg code = 4707214309) PV VMAX (test code 0.78 m/s See_Comment [Automat ed = 1995557984) message] The system which generated this result transmitted reference range: <=3. The reference range was not used to interpret this result as normal/abnormal . Ao Root Diameter 2.77 cm See_Comment [Automated (test code = message] The 5215935446) system which generated this result transmitted reference range: <=3.99. The reference range was not used to interpret this result as normal/abnormal . Ao Root Diameter 2.77 cm (test code = 7517168380) Ascending aorta 2.95 cm (test code = 4627725687) BSA (test code = 2.02 m2 0239507973) BSA Rashid (test code 2.11 m2 = 8204630557) BSA Haycock (test 2.10 m2 code = 4182206058) Pred METS R1 (test 9.76 code = 1597165536) Pred Exer Dur R1 9.49 (test code = 5690024019) MV Decel slope 5.02 m/s2 (test code = 2213474723) LVPW pct thck PLAX 25.29 % (test code = 6712619540) LV vol s cube 2D 27.97 ml (test code = 9052466920) LV vol d cube 2D 86.49 ml (test code = 9702884393) LV SV Cube 2D (test 58.52 ml code = 5987040495) LV SI Cube 2D (test 28.94 ml/m2 code = 4555621914) IVS pct thck PLAX 16.96 % (test code = 7175114481) Calc MPHR (test 165.08 bpm code = 9001605511) AoV area I VMN bsa 1.20 cm2/m2 (test code = 4676823772) 85 of MPHR (test 140.32 code = 4908596185) RVOT VTI (test code 0.14 m = 2812836729) RVOT Vmn (test code 0.59 m/s = 1870566851) RVOT mean grad 1.54 mmHg (test code = 1793489401) LVOT mean grad 1.67 mmHg (test code = 9946612667) Aov area Vmn (test 2.42 cm2 code = 8766131960) Pt Wt (test code = 90.72 7074310256) Pt Size (test code 170.18 = 2677570585) MV AE ratio (test 0.16 code = 4987969196) LVOT Vmn (test code 0.61 = 5775045408) PV Vmn (test code = 17.84 m/s 0891872853) LV Vol Index s 41.57 ml/m2 bpmod BSA Jean Claude (test code = 7506773557) LV SI MOD BP BSA 23.73 ml/m2 Garrard (test code = 4128790371) BMI (test code = 31.32 kg/m2 2237699959) LV Vol,s BP (test 36.07 nl code = 0044437244) LV Vol,d BP (test 84.05 ml code = 0779567779) LV SV,BP (test code 47.99 % = 8841264300) LV SV,A4C (test 44.47 % code = 5111973421) LV SV,A2C (test 47.51 % code = 8964289942) Gordo [place],s A4C 6.78 cm (test code = 5352111798) Gordo [place],s A2C 6.94 cm (test code = 1159613498) G[place],d A4C 7.48 cm (test code = 2222142029) G[place],d A2C 7.91 cm (test code = 0324634741) LV EF,A4C (test 54.41 % code = 8309208538) LV EF,A2C (test 57.86 % code = 9907540743) AoV VTI (test code 0.16 m = 5118847337) LVOT VTI (test code 0.14 m = 2004725982) MOE (test code = MOE) Left Ventricle: [...] status. Lab Interpretation Abnormal (test code = 80254-6) [facility]ast[facility] NuufqsyoNPAR-YrR-5 (COVID-19) RNA [Presence] in Respiratory specimen by LEILANI with probe [id number] 05:21:05 Test Item Value Reference Range Interpretation Comments SARS-CoV-2 (COVID-19) RNA Not detected [Presence] in Respiratory specimen by LEILANI with probe detection (test code = 52871-0) Whether patient is employed in a Unknown healthcare setting (test code = 46760-5) Whether the patient has symptoms Unknown related to condition of interest (test code = 26071-8) Whether the patient was Unknown hospitalized for condition of interest (test code = 65726-2) Whether the patient was admitted Unknown to intensive care unit (ICU) for condition of interest (test code = 90560-5) Whether patient resides in a Unknown congregate care setting (test code = 99863-7) status (test code = Unknown 59339-8) Date and time of symptom onset Unknown (test code = 90326-0) [facility] ED Preliminary Interpretation - Not an [id number] 21:56:45 Test Item Value Reference Range Interpretation Comments MOE (test code = MOE) Fortino Lozano MD 04/12/2022 9:18 [facility] [place] Interpretation - Not an OrderPerformed by: Fortino Lozano MDAuthorized by: Fortino Lozano MD ECG reviewed by ED Physician in the absence of a interpretive naturalist: yes Interpretation: Interpretation: abnormal Rate: ECG rate: 116 ECG rate assessment: tachycardic Rhythm: Rhythm: sinus tachycardia Ectopy: Ectopy: none QRS: QRS axis: Left QRS intervals: NormalConduction: Conduction: abnormal Abnormal conduction: complete RBBB ST segments: ST segments: NormalT waves: T waves: normal Comments: Similar to 10/10 Lab Interpretation Abnormal (test code = 27228-0) [facility] ED Preliminary Interpretation - Not an [id number] 21:56:45 Test Item Value Reference Range Interpretation Comments MOE (test code = MOE) Fortino Lozano MD 04/12/2022 9:18 [facility] [place] Preliminary Interpretation - Not an OrderPerformed by: Fortino Lozano MDAuthorized by: Fortino Lozano MD ECG reviewed by ED Physician in the absence of a interpretive naturalist: yes Interpretation: Interpretation: abnormal Rate: ECG rate: 116 ECG rate assessment: tachycardic Rhythm: Rhythm: sinus tachycardia Ectopy: Ectopy: none QRS: QRS axis: Left QRS intervals: NormalConduction: Conduction: abnormal Abnormal conduction: complete RBBB ST segments: ST segments: NormalT waves: T waves: normal Comments: Similar to 10/10 Lab Interpretation Abnormal (test code = 80100-8) [facility] ED Preliminary Interpretation - Not an [id number] 21:56:45 Test Item Value Reference Range Interpretation Comments MOE (test code = MOE) Fortino Lozano MD 04/12/2022 9:18 [facility] [place] Preliminary Interpretation - Not an OrderPerformed by: Fortino Lozano MDAuthorized by: Fortino Lozano MD ECG reviewed by ED Physician in the absence of a interpretive naturalist: yes Interpretation: Interpretation: abnormal Rate: ECG rate: 116 ECG rate assessment: tachycardic Rhythm: Rhythm: sinus tachycardia Ectopy: Ectopy: none QRS: QRS axis: Left QRS intervals: NormalConduction: Conduction: abnormal Abnormal conduction: complete RBBB ST segments: ST segments: NormalT waves: T waves: normal Comments: Similar to 10/10 Lab Interpretation Abnormal (test code = 33803-5) [facility] ED Preliminary Interpretation - Not an [id number] 21:56:45 Test Item Value Reference Range Interpretation Comments MOE (test code = MOE) Fortino Lozano MD 04/12/2022 9:18 [facility] [place] Preliminary Interpretation - Not an OrderPerformed by: Fortino Lozano MDAuthorized by: Fortino Lozano MD ECG reviewed by ED Physician in the absence of a interpretive naturalist: yes Interpretation: Interpretation: abnormal Rate: ECG rate: 116 ECG rate assessment: tachycardic Rhythm: Rhythm: sinus tachycardia Ectopy: Ectopy: none QRS: QRS axis: Left QRS intervals: NormalConduction: Conduction: abnormal Abnormal conduction: complete RBBB ST segments: ST segments: NormalT waves: T waves: normal Comments: Similar to 10/10 Lab Interpretation Abnormal (test code = 40070-3) [facility] ED Preliminary Interpretation - Not an [id number] 21:56:45 Test Item Value Reference Range Interpretation Comments MOE (test code = MOE) Fortino Lozano MD 04/12/2022 9:18 [facility] [place] Preliminary Interpretation - Not an OrderPerformed by: Fortino Lozano MDAuthorized by: Fortino Lozano MD ECG reviewed by ED Physician in the absence of a interpretive naturalist: yes Interpretation: Interpretation: abnormal Rate: ECG rate: 116 ECG rate assessment: tachycardic Rhythm: Rhythm: sinus tachycardia Ectopy: Ectopy: none QRS: QRS axis: Left QRS intervals: NormalConduction: Conduction: abnormal Abnormal conduction: complete RBBB ST segments: ST segments: NormalT waves: T waves: normal Comments: Similar to 10/10 Lab Interpretation Abnormal (test code = 53560-8) [facility] ED Preliminary Interpretation - Not an [id number] 21:56:45 Test Item Value Reference Range Interpretation Comments MOE (test code = MOE) Fortino Lozano MD 04/12/2022 9:18 [facility] [place] Preliminary Interpretation - Not an OrderPerformed by: Fortino Lozano MDAuthorized by: Fortino Lozano MD ECG reviewed by ED Physician in the absence of a interpretive naturalist: yes Interpretation: Interpretation: abnormal Rate: ECG rate: 116 ECG rate assessment: tachycardic Rhythm: Rhythm: sinus tachycardia Ectopy: Ectopy: none QRS: QRS axis: Left QRS intervals: NormalConduction: Conduction: abnormal Abnormal conduction: complete RBBB ST segments: ST segments: NormalT waves: T waves: normal Comments: Similar to 10/10 Lab Interpretation Abnormal (test code = 21943-6) [facility] ED Preliminary Interpretation - Not an [id number] 21:56:45 Test Item Value Reference Range Interpretation Comments MOE (test code = MOE) Fortino Lozano MD 04/12/2022 9:18 [facility] [place] Preliminary Interpretation - Not an OrderPerformed by: Fortino Lozano MDAuthorized by: Fortino Lozano MD ECG reviewed by ED Physician in the absence of a interpretive naturalist: yes Interpretation: Interpretation: abnormal Rate: ECG rate: 116 ECG rate assessment: tachycardic Rhythm: Rhythm: sinus tachycardia Ectopy: Ectopy: none QRS: QRS axis: Left QRS intervals: NormalConduction: Conduction: abnormal Abnormal conduction: complete RBBB ST segments: ST segments: NormalT waves: T waves: normal Comments: Similar to 10/10 Lab Interpretation Abnormal (test code = 29214-5) [facility] - Not an [id number] 21:56:45 Test Item Value Reference Range Interpretation Comments MOE (test code = MOE) Fortino Lozano MD 04/12/2022 9:18 [facility] [place] Preliminary Interpretation - Not an OrderPerformed by: Fortino Lozano MDAuthorized by: Fortino Lozano MD ECG reviewed by ED Physician in the absence of a interpretive naturalist: yes Interpretation: Interpretation: abnormal Rate: ECG rate: 116 ECG rate assessment: tachycardic Rhythm: Rhythm: sinus tachycardia Ectopy: Ectopy: none QRS: QRS axis: Left QRS intervals: NormalConduction: Conduction: abnormal Abnormal conduction: complete RBBB ST segments: ST segments: NormalT waves: T waves: normal Comments: Similar to 10/10 Lab Interpretation Abnormal (test code = 65011-7) [facility] RNA [Presence] in Respiratory specimen by LEILANI with probe [id number] 10:09:09 Test Item Value Reference Range Interpretation Comments SARS-CoV-2 (COVID-19) RNA Not detected [Presence] in Respiratory specimen by LEILANI with probe detection (test code = 35692-4) Whether patient is employed in a Unknown healthcare setting (test code = 54710-2) Whether the patient has symptoms Unknown related to condition of interest (test code = 80387-3) Whether the patient was Unknown hospitalized for condition of interest (test code = 38217-6) Whether the patient was admitted Unknown to intensive care unit (ICU) for condition of interest (test code = 33102-9) Whether patient resides in a Unknown congregate care setting (test code = 41102-5) status (test code = Unknown 64338-7) Date and time of symptom onset Unknown (test code = 75407-0) [id number] 08:07:00 Test Item Value Reference Range Interpretation Comments GLUBED (test code = 170 mg/dL 74-106 H Performe d by certified GLUBED) 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 [facility] [id number] 21:00:00 Test Item Value Reference Range Interpretation Comments GLUBED (test code = 185 mg/dL 74-106 H Performe d by certified GLUBED) 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 [facility] [id number] 15:40:00 Test Item Value Reference Range Interpretation Comments GLUBED (test code = 167 mg/dL 74-106 H Performe d by certified GLUBED) 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 [facility] [id number] 11:13:00 Test Item Value Reference Range Interpretation Comments GLUBED (test code = 212 mg/dL 74-106 H Performe d by certified GLUBED) 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 [facility] [id number] 08:09:00 Test Item Value Reference Range Interpretation Comments GLUBED (test code = 91 mg/dL 74-106 N Performe d by certified GLUBED) 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 [facility] [id number] 20:51:00 Test Item Value Reference Range Interpretation Comments GLUBED (test code = 155 mg/dL 74-106 H Performe d by certified GLUBED) 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 [facility] [id number] 15:53:00 Test Item Value Reference Range Interpretation Comments GLUBED (test code = 130 mg/dL 74-106 H Performe d by certified GLUBED) 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 [facility] [id number] 11:15:00 Test Item Value Reference Range Interpretation Comments GLUBED (test code = 195 mg/dL 74-106 H Performe d by certified GLUBED) 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 [Automated mess age] The system [employer] generated this result transmitted ref erence range: >=60. Th e reference range was not used to int erpret this result as normal/abnormal . 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 [facility]2022-09-14 15:49:00 Test Item Value Reference Range Interpretation Comments GLUBED (test code = 191 mg/dL 74-106 H Performe d by certified GLUBED) 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 [facility] [id number] 10:43:00 Test Item Value Reference Range Interpretation Comments GLUBED (test code = 362 mg/dL 74-106 H Performe d by certified GLUBED) 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 [Automated mess age] The system [employer] generated this result transmitted ref erence range: >=60. Th e reference range was not used to int erpret this result as normal/abnormal . 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 [facility] [id number] 16:48:00 Test Item Value Reference Range Interpretation Comments GLUBED (test code = 280 mg/dL 74-106 H Performe d by certified GLUBED) 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 [facility] [id number] 13:00:00 Test Item Value Reference Range Interpretation Comments GLUBED (test code = 226 mg/dL 74-106 H Performe d by certified GLUBED) 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 [facility] [id number] 11:29:00 Test Item Value Reference Range Interpretation Comments GLUBED (test code = 246 mg/dL 74-106 H Performe d by certified GLUBED) 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 [facility] [id number] 10:34:00 Test Item Value Reference Range Interpretation Comments GLUBED (test code = 227 mg/dL 74-106 H Performe d by certified GLUBED) 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 [facility] [id number] 10:34:00 Test Item Value Reference Range Interpretation Comments GLUBED (test code = 256 mg/dL 74-106 H Performe d by certified GLUBED) 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 HEA RT, LUNG, AND BLOOD INST. HDL CHOLESTEROL (test 27 mg/dL 40-60 L code = HDL) LIPOPROTEIN LDL (test 71 mg/dL 100-129 L ====== code = LDL) ======= Referen ce Interval: mg /dL mmol/L--------- ------- ------- ------O ptimal <100 <2.6Near/above optimal 100-129 2.6-3.3Borderli ne High 130-159 3.4-4.1 High 160-189 4.1-4.9 Very High >=190 >=4.9========= This LDL result is a direct measurement.=== ====== BASIC METABOLIC [id number] 18:01:00 Test Item Value Reference Range Interpretation [...] >3 months. [Automated mess age] The system [employer] generated this result transmitted ref erence range: >=60. Th e reference range was not used to int erpret this result as normal/abnormal . CREATININE (test 0.80 mg/dL 0.7-1.3 N code = CREAT) BUN/CREATININE RATIO 14.1 10-20 N (test code = BUN/CREA) CALCIUM (test code = 8.3 mg/dL 8.5-10.1 L CA) [id number] 18:01:00 Test Item Value Reference Range Interpretation Comments PHOSPHORUS (test code = PHOS) 2.8 mg/dL 2.5-4.9 N [id number] 18:01:00 Test Item Value Reference Range Interpretation Comments MAGNESIUM (test code = MAG) 1.7 mg/dL 1.8-2.4 L THYROID STIMULATING [id number] 18:01:00 Test Item Value Reference Range Interpretation Comments THYROID STIMULATING 0.667 uIU/mL 0.36-3.74 N TSH REFE RENCE HORMONE (test code = RANGES: EUTHYROID: TSH) 0.35 - 4.3 mIU/ mL HYPO : > 5.5 mI U/mL HYPER : < 0.35 mIU/mL CBC W/AUTO [id number] 18:00:00 Test Item Value Reference Range Interpretation [...] = 0.00 K/mm3 0.0-0.1 N NRBC#) LACTIC [id number] 14:22:00 Test Item Value Reference Range Interpretation Comments LACTIC ACID (test code = LACT) 1.3 mmol/L 0.4-1.9 N - XR TIBIA/FIBULA 2 V [id number] 12:37:00 [facility]Name: HARJINDER COLUNGA : 1965 Sex: M FAX: Jerry Roa MD [phone] [place]: St: REG Name: HARJINDER COLUNGA [facility] : 1965 Age/S: 56/M [address] [facility] Unit #: [id number] Loc: [place], [place] [address] Phys: Jerry Roa MD Acct: [id number] Dis Date: Status: REG ER PHONE #: [phone] Exam Date: 12/31/2021 1226 FAX #: [phone] Reason: leg redness EXAMS: CPT CODE: [id number] XR TIBIA/FIBUL[place] 2 [place] [id number] REASON FOR EXAM: leg redness EXAM ORDER DATE: 12/31/2021 11:19 AM Ordering M.D.: Jerry Roa MD PROCEDURE: - XR KNEE 3 V LT, -XR TIBIA/FIBULA 2 V LT Comparison:No relevant priors [...] Mild degenerative changes of the left knee. Otherwiseno radiographically evident bony abnormalities are seen in the scanned left lower extremity. The subcutaneous soft tissues appear edematous. Correlate with physical exam. Location: [facility] at 1237 Reported and signed by: Magan Rae MD CC: Jerry Roa MD Technologist: FORTINO SOSA RT(R) Trnscrd Date/Time/By: 12/31/2021 (1237) : By: [email or web address] Orig Print D/T: S: 12/31/2021 (8548) PAGE 1 Signed Report- XR KNEE 3 V [id number] 12:37:00 [facility])Name: HARJINDER COLUNGA : 1965 Sex: M FAX: Jerry Roa MD [phone] [place]: [address] St: REG Name: HARJINDER COLUNGA [facility] : 1965 Age/S: 56/M [facility] Unit #: [id number] Loc: [place] [address] Phys: Jerry Roa MD Acct: [id number] Dis Date: Status: REG ER PHONE #: [phone] Exam Date: 12/31/2021 1226 FAX #: [phone] Reason: leg redness EXAMS: CPT CODE: [id number] XR KNEE 3 V LT 03874 REASON FOR EXAM: leg redness EXAM ORDER DATE: 12/31/2021 11:19 AM Ordering MJacque: Jerry Roa MD PROCEDURE: - XR KNEE [...] appear edematous. Correlate with physical exam. Location: [facility] at 1237 Reported and signed by: Magan Rae MD CC: Jerry Roa MD Technologist: FORTINO SOSA, RT(R) Trnscrd Date/Time/By: 12/31/2021 (9694) : By: [email or web address].[email or web address] Orig Print D/T: S: 12/31/2021 (6402) PAGE 1 Signed ReportBASIC METABOLIC [id number] 12:10:00 Test Item Value Reference Range Interpretation [...] >3 months. [Automated mess age] The system [employer] generated this result transmitted ref erence range: >=60. Th e reference range was not used to int erpret this result as normal/abnormal . CREATININE (test code 1.00 mg/dL 0.7-1.3 N = CREAT) BUN/CREATININE RATIO 10.8 10-20 N (test code = BUN/CREA) CALCIUM (test code = 8.8 mg/dL 8.5-10.1 N CA) HEPATIC FUNCTION [id number] 12:10:00 Test Item Value Reference Range Interpretation [...] due ALKP) to change in reagent. LACTIC [id number] 12:08:00 Test Item Value Reference Range Interpretation Comments LACTIC ACID (test 2.1 mmol/L 0.4-1.9 HH Results ca lled to code = LACT) EHA2421 by 2I 4988 12/31/21 1208Cr itical results verifie d and read back by Nu rse? Y FOR ALL ICU PATIENT EXCLUDING HOLD PLEASE CALL [phone] CBC W/AUTO [id number] 11:58:00 Test Item Value Reference Range Interpretation [...] = 0.00 K/mm3 0.0-0.1 N NRBC#) POC [id number] 16:17:00 Test Item Value Reference Range Interpretation Comments POC glucose (test code 238 mg/dL 65-100 H Opera tor Name: Sherice = 92407-8) FrancoDevice ID : [id number] Lab Interpretation Abnormal (test code = 91142-3) [facility] [id number] 16:17:00 Test Item Value Reference Range Interpretation Comments POC glucose (test code 238 mg/dL 65-100 H Opera tor Name: Sherice = 10302-3) FrancoDevice ID : [id number] Lab Interpretation Abnormal (test code = 53754-9) [facility] [id number] 11:12:00 Test Item Value Reference Range Interpretation Comments Urine culture Mixed yadi Specimen isolate (test <=10-3 col/cc InformationSp ecimen code = 55079-7) Source: [facility] Site: [facility]2022-08-24 11:12:00 Test Item Value Reference Range Interpretation Comments Urine culture Mixed yadi Specimen isolate (test <=10-3 col/cc InformationSp ecimen code = 75896-4) Source: [facility] Site: [facility]2022-08-24 11:12:00 Test Item Value Reference Range Interpretation Comments Urine culture Mixed yadi Specimen isolate (test <=10-3 col/cc InformationSp ecimen code = 46393-6) Source: [facility] Site: [facility]2022-08-24 11:12:00 Test Item Value Reference Range Interpretation Comments Urine culture Mixed yadi Specimen isolate (test <=10-3 col/cc InformationSp ecimen code = 26675-4) [facility]2022-08-24 11:12:00 Test Item Value Reference Range Interpretation Comments Urine culture Mixed yadi Specimen isolate (test <=10-3 col/cc InformationSp ecimen code = 08002-0) Source: [facility] Site: [facility]2022-08-24 11:12:00 Test Item Value Reference Range Interpretation Comments Urine culture Mixed yadi Specimen isolate (test <=10-3 col/cc InformationSp ecimen code = 74218-4) Source: [facility] Site: [facility]2022-08-24 11:12:00 Test Item Value Reference Range Interpretation Comments Urine culture Mixed yadi Specimen isolate (test <=10-3 col/cc InformationSp ecimen code = 67929-6) Source: [facility] Site: [facility] [id number] 11:12:00 Test Item Value Reference Range Interpretation Comments Urine culture Mixed yadi Specimen isolate (test <=10-3 col/cc InformationSp ecimen code = 95913-1) Source: [facility] Site: [facility] [id number] 11:12:00 Test Item Value Reference Range Interpretation Comments Urine culture Mixed yadi Specimen isolate (test <=10-3 col/cc InformationSp ecimen code = 39351-5) Source: [facility] Site: [facility] [id number] 11:12:00 Test Item Value Reference Range Interpretation Comments Urine culture Mixed yadi Specimen isolate (test <=10-3 col/cc InformationSp ecimen code = 81498-8) Source: [facility] [Presence] in Respiratory specimen by LEILANI with probe [id number] 06:28:40 Test Item Value Reference Range Interpretation Comments SARS-CoV-2 (COVID-19) RNA Not detected [Presence] in Respiratory specimen by LEILANI with probe detection (test code = 04179-7) Whether patient is employed in a Unknown healthcare setting (test code = 76027-3) Whether the patient has symptoms Unknown related to condition of interest (test code = 22178-3) Whether the patient was Unknown hospitalized for condition of interest (test code = 97409-1) Whether the patient was admitted Unknown to intensive care unit (ICU) for condition of interest (test code = 73526-6) Whether patient resides in a Unknown congregate care setting (test code = 10054-2) status (test code = Unknown 78851-5) Date and time of symptom onset Unknown (test code = 59039-7) [facility] 12 [id number] 16:49:51 Test Item Value Reference Range Interpretation Comments Ventricular rate (test code = 253) Atrial rate (test code = 255) AK interval (test code = 266) QRSD interval [...] for Inferior infarct are no longer present- [facility] 12 [id number] 16:49:51 Test Item Value Reference Range Interpretation Comments Ventricular rate (test code = 253) Atrial rate (test code = 255) AK interval (test code = 266) QRSD interval [...] for Inferior infarct are no longer present- [facility] ED Preliminary Interpretation - Not an [id number] 04:49:00 Test Item Value Reference Range Interpretation Comments MOE (test code = MOE) Norberto Lanier FNP 10/11/2021 11:48 [facility] ED Preliminary Interpretation - Not an OrderPerformed by: Norberto Lanier FNPAuthorized by: Fahad Anna MD ECG reviewed by ED Physician in the absence of a interpretive naturalist: yes Interpretation: Interpretation: abnormal Rate: ECG rate: 83 ECG rate assessment: normal Rhythm: Rhythm: sinus rhythm Ectopy: Ectopy: none QRS: QRS axis: Normal QRS intervals: WideConduction: Conduction: abnormal Abnormal conduction: complete RBBB and LAFB ST segments: ST segments: NormalT waves: T waves: non-specific Lab Interpretation Abnormal (test code = 61157-7) [facility] ED Preliminary Interpretation - Not an [id number] 04:49:00 Test Item Value Reference Range Interpretation Comments MOE (test code = MOE) Norberto Lanier FNP 10/11/2021 11:48 [facility] [place] Preliminary Interpretation - Not an OrderPerformed by: Norberto Lanier FNPAuthorized by: Fahad nAna MD ECG reviewed by ED Physician in the absence of a interpretive naturalist: yes Interpretation: Interpretation: abnormal Rate: ECG rate: 83 ECG rate assessment: normal Rhythm: Rhythm: sinus rhythm Ectopy: Ectopy: none QRS: QRS axis: Normal QRS intervals: WideConduction: Conduction: abnormal Abnormal conduction: complete RBBB and LAFB ST segments: ST segments: NormalT waves: T waves: non-specific Lab Interpretation Abnormal (test code = 35651-0) [place] [id number] 18:34:00 Test Item Value Reference Range Interpretation Comments GLUBED (test code = 316 mg/dL 74-106 H Performe d by certified 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 Clean CatchDRUGS OF ABUSE SCREEN [id number] 17:45:00 Test Item Value Reference Range Interpretation Comments UR MDMA (test code = NEGATIVE NEGATIVE MDMAQLU) URN COCAINE (test code = NEGATIVE NEGATIVE [A utomated message] COCAURN) The system [facility] medical [facility] Check-Cap generated this result transmitted ref erence range: [...] NEGATIVE [A utomated message] OPIATURN) The system [employer] generated this result transmitted ref erence range: [...] [A utomated message] = METHAURN) The system [employer] generated this result transmitted ref erence range: <300 ng/ mL. The reference r maggi was not used to interpret this result as normal/abnor mal. Urine Source? Clean CatchBASIC METABOLIC [id number] 16:11:00 Test Item Value Reference Range Interpretation [...] >3 months. [Automated mess age] The system [employer] generated this result transmitted ref erence range: >=60. Th e reference range was not used to int erpret this result as normal/abnormal . CREATININE (test code 0.99 mg/dL 0.55-1.3 N = CREAT) BUN/CREATININE RATIO 15.2 10-20 N (test code = BUN/CREA) CALCIUM (test code = 8.1 mg/dL 8.0-10.5 N CA) [id number] 16:11:00 Test Item Value Reference Range Interpretation Comments TROPONIN-HS (test 5.1 pg/mL 0-60 N CAUTION: U nits of the code = TROPI) current test m ethodology (pg/mL)differ f rom the prior test meth odology (ng/mL) by a fa ctorof 1000. [id number] 16:11:00 Test Item Value Reference Range Interpretation [...] CH ARGE TO THE PATIENT. CBC W/O [id number] 15:42:00 Test Item Value Reference Range Interpretation [...] N = MPV) - XR CHEST 1 [id number] 15:42:00 [facility]Name: HARJINDER COLUNGA : 1965 Sex: M FAX: Brennan Dupont [phone] [place]: [place] St: PRE Name: HARJINDER COLUNGA [facility] : 1965 Age/S: 56/M [address] [facility] Unit #: [id number] Loc: [facility] [address] Phys: Brennan Dupont MD [place], [place] [address] Acct: [id number] Dis Date: Status: PRE ER PHONE #: Exam Date: 08/06/2021 1544 FAX #: Reason: WEAKNESS EXAMS: CPT CODE: [id number] XR CHEST 1 V 08681 REASON FOR EXAM: WEAKNESS Exam Order Date: 08/06/2021 3:22 PM Ordering Amanda: Brennan Dupont MD PROCEDURE: - XR CHEST1 V COMPARISON: 06/28/2020 FINDINGS: Lines/Tubes: None The lungs are clear. There is no pleural effusion or pneumothorax. Pulmonary vascularity is within normal limits. Cardiomediastinal silhouette and mediastinal contours are unchanged when accounting for differences in technique. Musculoskeletal structures and visualized portions of the upper abdomen are also unchanged. IMPRESSION: No acute cardiopulmonary process. Location: [facility] at 1542 Reported and signed by: Ramu Ramos M.D. CC: Brennan Dupont MD Technologist: Jonathan Herndon RT(R)(CT) Trnscrd Date/Time/By: 08/06/2021 (1542) : By: [email or web address] Orig Print D/T: S: 08/06/2021 (2965) PAGE 1 Signed ReportLone Star Glucose -- Point of Care Meters (34675) 2021-06-29 00:00:00 Test Item Value Reference Range Interpretation Comments BLOOD GLUCOSE-HOME MONITOR (test code = 266 70-110 A 86372-0) [id number] 16:34:00 Test Item Value Reference Range Interpretation Comments TROPONIN-I (test code = TROPI) <0.015 ng/mL 0.00-0.056 N URINALYSIS [id number] 15:41:00 Test Item Value Reference Range Interpretation [...] HPF NONE BACU) Urine Source? Clean CatchURINALYSIS [id number] 15:39:00 Test Item Value Reference Range Interpretation [...] Urine Source? Clean Catch- CT HEAD/BRAIN W/O [id number] 13:23:00 [facility]Name: HARJINDER COLUNGA : 1965 Sex: M [facility] 1965 [facility]S: 55 / M [address] [facility] [address] Unit #: [id number] Loc: [address] Phys: Jerry Roa MD [place], [place] [address] Acct: [id number] Dis Date: Status: REG ER PHONE #: Exam Date: 12/24/2020 1305 FAX #: Reason: dizzy EXAMS: CPT CODE: [id number] CT HEAD/BRAIN W/O CONT 38768 HISTORY: dizzy TECHNIQUE: Noncontrast 2.5 mm axial [...] 1 Signed Report (CONTINUED) Name: HARJINDER COLUNGA [facility] : 1965 Age/S: 55 / M [address] [facility] [address] Unit #: [id number] Loc: [address] Phys: Jerry Roa MD [place], [place] [address] Acct: [id number] Dis Date: Status: REG ER PHONE #: Exam Date: 12/24/2020 1305 FAX #: Reason: dizzy EXAMS: CPT CODE: [id number] CT HEAD/BRAIN W/O CONT 77631 (Continued) CC: Jerry Roa MD Technologist:Vicky Saba RT(R)(CT) CTDI: DLP: Trnscb Date/Time: 12/24/2020 (1323) BradyP1Orig Print D/T: S: 12/24/2020 (0544) PAGE 2 Signed ReportBASIC METABOLIC [id number] 12:45:00 Test Item Value Reference Range Interpretation [...] >3 months. [Automated mess age] The system [employer] generated this result transmitted ref erence range: >=60. Th e reference range was not used to int erpret this result as normal/abnormal . CREATININE (test 0.77 mg/dL 0.55-1.3 N code = CREAT) BUN/CREATININE RATIO 20.8 10-20 H (test code = BUN/CREA) CALCIUM (test code = 8.1 mg/dL 8.0-10.5 N CA) [id number] 12:45:00 Test Item Value Reference Range Interpretation Comments TROPONIN-I (test code = TROPI) <0.015 ng/mL 0.00-0.056 N CREATINE KINASE (CK)2020-12-24 12:43:00 Test Item Value Reference Range Interpretation Comments CREATINE KINASE (CK) (test code = CK) 38 U/L 39-308 L BASIC METABOLIC [id number] 12:37:00 Test Item Value Reference Range Interpretation [...] >3 months. [Automated mess age] The system [employer] generated this result transmitted ref erence range: >=60. Th e reference range was not used to int erpret this result as normal/abnormal . CREATININE (test 0.77 mg/dL 0.55-1.3 N code = CREAT) BUN/CREATININE RATIO 20.8 10-20 H (test code = BUN/CREA) CALCIUM (test code = 8.1 mg/dL 8.0-10.5 N CA) [id number] 12:37:00 Test Item Value Reference Range Interpretation Comments TROPONIN-I (test code = TROPI) pg/mL 0-45 CBC W/O [id number] 12:33:00 Test Item Value Reference Range Interpretation [...] code 9.3 fL 6.7-11.0 N = MPV) [id number] 09:02:00 Test Item Value Reference Range Interpretation Comments GLUBED (test code = GLUBED) 96 MG/DL 74-106 N [id number] 20:42:00 Test Item Value Reference Range Interpretation Comments GLUBED (test code = GLUBED) 213 MG/DL 74-106 H [id number] 16:51:00 Test Item Value Reference Range Interpretation Comments GLUBED (test code = GLUBED) 209 MG/DL 74-106 H [id number] 15:04:00 Test Item Value Reference Range Interpretation Comments GLUBED (test code = GLUBED) 215 MG/DL 74-106 H [id number] 14:45:00 Test Item Value Reference Range Interpretation Comments ACT-ISTAT (test code = ACTI) 213 SEC 74-125 H [id number] 14:14:00 Test Item Value Reference Range Interpretation Comments ACT-ISTAT (test code = ACTI) 274 SEC 74-125 H [id number] 14:13:00 Test Item Value Reference Range Interpretation Comments ACT-ISTAT (test code = ACTI) 241 SEC 74-125 H [id number] 08:29:00 Test Item Value Reference Range Interpretation Comments GLUBED (test code = GLUBED) 115 MG/DL 74-106 H [id number] 19:03:00 Test Item Value Reference Range Interpretation Comments GLUBED (test code = GLUBED) 143 MG/DL 74-106 H [id number] 16:36:00 Test Item Value Reference Range Interpretation Comments GLUBED (test code = GLUBED) 314 MG/DL 74-106 H [id number] 12:15:00 Test Item Value Reference Range Interpretation Comments GLUBED (test code = GLUBED) 130 MG/DL 74-106 H COVID 19 Asymptomatic IH [id number] 09:47:00 Test Item Value Reference Range Interpretation Comments COVID 19 Asymptomatic IH AG (test NEGATIVE Negative code = COVNONPUIAG) Spec Comments: PATIENT GOING TO CATH LABPROTHROMBIN [id number] 09:38:00 Test Item Value Reference Range Interpretation [...] Aspirin Enoxaprin (Lovenox)Spec Comments: PATIENT GOING TO BUTTON BREAKER 1, THROMBOPLASTIN TIME [id number] 09:38:00 Test Item Value Reference Range Interpretation Comments THROMBOPLASTIN TIME 27.1 SECONDS 23.4-37.0 N Therape utic Range PARTIAL (test code = for Hep audrey PTT) EFFECTIVE Heparin IU/mL a PTT Seconds0.3 64.3 0.7 88.8 IS PATIENT ON ANTICOAGULANTS ? 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 TO BUTTON BREAKER 1,GLUBED 2020-07-03 08:24:00 Test Item Value Reference Range Interpretation Comments GLUBED (test code = GLUBED) 135 MG/DL 74-106 H BASIC METABOLIC [id number] 06:53:00 Test Item Value Reference Range Interpretation [...] 9.1 mg/dL 8.4-10.2 N CA) CBC W/AUTO [id number] 06:42:00 Test Item Value Reference Range Interpretation [...] = BA#) 0.05 x10 3/uL 0.0-0.1 N [id number] 21:27:00 Test Item Value Reference Range Interpretation Comments GLUBED (test code = GLUBED) 234 MG/DL 74-106 H [id number] 16:22:00 Test Item Value Reference Range Interpretation Comments GLUBED (test code = GLUBED) 195 MG/DL 74-106 H [id number] 12:04:00 Test Item Value Reference Range Interpretation Comments GLUBED (test code = GLUBED) 179 MG/DL 74-106 H [id number] 08:51:00 Test Item Value Reference Range Interpretation Comments GLUBED (test code = GLUBED) 124 MG/DL 74-106 H [id number] 20:53:00 Test Item Value Reference Range Interpretation Comments GLUBED (test code = GLUBED) 129 MG/DL 74-106 H [id number] 18:30:00 Test Item Value Reference Range Interpretation Comments GLUBED (test code = GLUBED) 174 MG/DL 74-106 H [id number] 12:32:00 Test Item Value Reference Range Interpretation Comments GLUBED (test code = GLUBED) 152 MG/DL 74-106 H [id number] 08:40:00 Test Item Value Reference Range Interpretation Comments GLUBED (test code = GLUBED) 98 MG/DL 74-106 N [id number] 20:46:00 Test Item Value Reference Range Interpretation Comments GLUBED (test code = GLUBED) 110 MG/DL 74-106 H - DUP LE ART [id number] 18:07:00 [facility] 1965 Sex: M FAX: Patrick Ponce Arm [phone] [place]: St: [facility] FAX: Nathanael Romero [phone] --------- Name: HARJINDER COLUNGA [facility] : 1965 Age/S: 55/M [address] Unit #: [id number] Loc: [address] [place] [address] Phys: Patrick Sr DPM R2 Acct: [id number] Dis Date: Status: ADM IN PHONE #: [phone] Exam Date: 06/30/2020 173 FAX #: [phone] Reason: WOUNDS EXAMS: CPT CODE: [id number] [facility] LE ART [place] [address] STUDY: Bilateral lower extremity ultrasound with Doppler. [...] values compatible with moderate arterial disease. PAGE 1Signed Report (CONTINUED) FAX: Patrick Sr Arm [phone] [place]: [facility]: [facility] FAX: Nathanael Romero [phone] Name: HARJINDER COLUNGA [place] : 1965 Age/S: 55/M [address] Unit #: [id number] Loc: [address] [place] [address] Phys: Patrick Sr DPM Acct: [id number] Dis Date: Status: ADM IN PHONE #: [phone] Exam Date: 06/30/2020 1731 FAX #: [phone] Reason: WOUNDS EXAMS: CPT CODE: [id number] DUP LE ART [place] [address] <Continued> Electronically Signed by Donaldo Alba 06/30/2020 at 1807 Reported and signed by: Donaldo Wen MD CC: Patrick Sr DPM; Nathanael Laureano Technologist: MARK Gallardo Trnscrd Date/Time/By: 06/30/2020 (1807) : By: [email or web address] PAGE 2 Signed Report FAX: Patrick Sr Arm [phone] [place]: [facility]: ADM FAX: Nathanael Romero [phone] Name: HARJINDER COLUNGA [facility] : 1965 Age/S: 55/M [address] Unit #: [id number] Loc: [address] [address] Phys: Patrick Sr DPM R2 Acct: [id number] Dis Date: Status: ADM IN PHONE #: [phone] Exam Date: 06/30/2020 1731 FAX #: [phone] Reason: WOUNDS EXAMS:CPT CODE: [id number] DUP LE ART [place] [address] <Continued> Orig Print D/T: S: 06/30/2020 (1810) PAGE3 Signed Report- DOP ART 1-2 LEVELS [id number] 18:07:00 [facility] : 1965 Sex: M FAX: Patrick Ponce Arm [phone] [place]: [facility]: ADM FAX: Grant MuñozPavel Helton MD [phone] Name: HARJINDER COLUNGA [place] : 1965 Age/S: 55/M [address] Unit #: [id number] Loc: [address] [place] [address] Phys: Patrick Sr DPM R2 Acct: [id number] Dis Date: Status: ADM IN PHONE #: [phone] Exam Date: 06/30/2020 173 FAX #: [phone] Reason: WOUNDS, HX OF SMOKING, NON PALP PULSES EXAMS: CPT CODE: [id number] DOP ART 1-2 LEVELS [facility] [address] STUDY: Bilateral lower extremity ultrasound with Doppler.HISTORY: [...] Signed Report (CONTINUED) FAX: Patrick Sr Arm [phone] [place]: [facility]: ADM FAX: Pavel Hicks MD [phone] Name: HARJINDER COLUNGA [facility] : 1965 Age/S: 55/M [address] Unit #: [id number] Loc: [address] [place] [address] Phys: Patrick Sr DPM R2 Acct: [id number] Dis Date: Status: ADM IN PHONE #: [phone] Exam Date: 06/30/2020 1731 FAX #: [phone] Reason: WOUNDS, HX OF SMOKING, NON PALP PULSES EXAMS: CPT CODE: [id number] DOP ART 1-2 LEVELS [place] [address] <Continued> at 1807 Reported and signed by: Donaldo Wen MD CC: Patrick Sr DPM; Pavel Muñoz MD Technologist: MARK Gallardo Trndcrd Date/Time/By: 06/30/2020 (1807) : By: [email or web address] PAGE 2 Signed Report FAX: Patrick Sr Arm [phone] [place]: [facility]: ADM FAX: Pavel Hicks MD [phone] ------- Name: HARJINDER COLUNGA [facility] [place] : 1965 Age/S: 55/M [address] Unit #: [id number] Loc: [address] [place] [address] Phys: Patrick Sr DPM R2 Acct: [id number] Dis Date: Status: ADM IN PHONE #: [phone] Date: 06/30/2020 1731 FAX #: [phone] Reason: WOUNDS, HX OF SMOKING, NON PALP PULSES EXAMS: CPT CODE: [id number] DOP ART 1-2 LEVELS [place] [address] <Continued> Orig Print D/T: S: 06/30/2020 (1809) PAGE 3 Signed [id number] 16:25:00 Test Item Value Reference Range Interpretation Comments GLUBED (test code = GLUBED) 244 MG/DL 74-106 H [id number] 12:16:00 Test Item Value Reference Range Interpretation Comments GLUBED (test code = GLUBED) 246 MG/DL 74-106 H [id number] 08:54:00 Test Item Value Reference Range Interpretation Comments GLUBED (test code = GLUBED) 172 MG/DL 74-106 H [id number] 21:00:00 Test Item Value Reference Range Interpretation Comments GLUBED (test code = GLUBED) 118 MG/DL 74-106 H [id number] 15:58:00 Test Item Value Reference Range Interpretation Comments GLUBED (test code = GLUBED) 249 MG/DL 74-106 H [id number] 12:28:00 Test Item Value Reference Range Interpretation Comments GLUBED (test code = GLUBED) 285 MG/DL 74-106 H - MRI LOW EXT W/O CONT [id number] 11:17:00 [facility] : 1965 Sex: M FAX: Patrick Ponce Adrian [phone] [place]: St: ADM FAX: Pavel Hicks MD [phone] Name[facility] 1965 Age[facility]S: 55[facility]M [address] Unit #: [id number] Loc: [address] [place] [address] Phys: Patrick Sr DPM R2 Acct: [id number] Dis Date: Status: ADM IN PHONE #: [phone] ExamDate: 06/29/2020 0959 FAX #: [phone] Reason: PETER le WOUNDS IN FORE FOOT EXAMS: CPT CODE: [id number] [place] L[place] W/[place] [address] EXAM: - MRI LOW EXT W/O CONT [...] Unremarkable. IMPRESSION: No osteomyelitis. No drainable fluid collection.Mild peroneus longus tenosynovitis. 0.5 x 0.5 x 1.5 cm ganglion versus varix situated at the plantaraspect of the 3rd metatarsal shaft within the intrinsic foot musculature. at 1117 Reported and signed by: Michael Bai MD CC: Patrick Sr DPM; Pavel Muñoz MD Technologist: Wendy Agee [facility] Date/Time/By: 06/29/2020(8417) : By: [email or web address] PAGE 1 Signed Report FAX: Patrick Sr Arm [phone] [place]: St: ADM FAX: Pavel Hicks MD [phone] Name: [facility] [facility] : 1965 Age/S: 55/M [address] Unit #: [id number] Loc: [address] [address] Phys: Patrick Sr DPM R2 Acct: [id number] Dis Date: Status: ADM IN PHONE #: [phone] Exam Date: 06/29/2020 0959 FAX #: [phone] Reason:PETER le WOUNDS IN FORE FOOT EXAMS: CPT CODE: [id number] [place] L[place] EX[place] [address] <Continued> Orig Print D/T: S: 06/29/2020 (1120) PAGE 2 Signed Report- MRI LOW EXT W/O CONT RT 2020-06-29 10:16:00 [facility] : 1965 Sex: M FAX: Patrick Ponce Arm [phone] [place]: St: ADM FAX: Pavel Hicks MD [phone] [facility] 1965 Age[facility] 55[facility]M [address] Unit #: [id number] Loc: C.[address] [place] [address] Phys: Patrick Sr DPM R2 Acct: [id number] Dis Date: Status: ADM IN PHONE #: [phone] Exam Date: 06/29/2020 0959 FAX #: [phone] Reason: PETER FOOT WOUNDS EXAMS: CPT CODE: [id number] MRI LOWEXT W/[place] [address] EXAM: - MRI LOW EXT W/O CONT RT HISTORY: PETER FOOT WOUNDS COMPARISON: None available at time of interpretation. TECHNIQUE: Multi sequential, multiplanar noncontrast MR images of the right foot. FINDINGS: Bones: No areas of confluent T1 hypointensity identified. Soft tissues: No dr bj fluid collection. Muscles/tendons: Small amount of fluid in the peroneus longus tendon sheath. IMPRESSION: No osteomyelitis. No drainable fluid collection. Mild peroneus longus tenosynovitis. at 1016 Reported and signed by: Michael Bai MD CC: Patrick Sr DPM; Pavel Muñoz MD Technologist: Wendy Agee TrnscrdDate/Time/By: 06/29/2020 (1016) : By: [email or web address].[email or web address] PAGE 1 Signed Report FAX: RembertoPatrick Arm [phone] [place]: St: ADM FAX: Pavel Hicks MD [phone] Name: HARJINDER COL[facility]GA [facility] : 1965 Age/S: 55/M [address] Unit #: [id number] Loc: [address] [place] [address] Phys: Patrick Sr DPMR2 Acct: [id number] Dis Date: Status: ADM IN PHONE #: [phone] Exam Date: 06/29/2020958 FAX #: [phone] Reason: PETER FOOT WOUNDS EXAMS: CPT CODE: [id number] MRI LOW EXT W/[place] [address] <Continued> Orig Print D/T: S: 06/29/2020 (3178) PAGE 2 Signed Report COMPREHENSIVE METABOLIC [id number] 09:31:00 Test Item Value Reference Range Interpretation [...] N (test code = ALKP) COMPREHENSIVE METABOLIC [id number] 09:30:00 Test Item Value Reference Range Interpretation [...] U/L 38-126 N (test code = ALKP) [id number] 09:28:00 Test Item Value Reference Range Interpretation Comments GLUBED (test code = GLUBED) 184 MG/DL 74-106 H CBC W/AUTO [id number] 07:48:00 Test Item Value Reference Range Interpretation [...] BA#) 0.03 x10 3/uL 0.0-0.1 N SED [id number] 07:48:00 Test Item Value Reference Range Interpretation Comments SED RATE (test code = SEDW) 85 mm/hr 0-20 H HGBA1C - GLYCOSYLATED [id number] 07:08:00 Test Item Value Reference Range Interpretation [...] with these hemo globin variants. CBC W/AUTO [id number] 06:43:00 Test Item Value Reference Range Interpretation [...] BA#) 0.03 x10 3/uL 0.0-0.1 N SED [id number] 06:43:00 Test Item Value Reference Range Interpretation [...] LDL Cholesterol<1 00mg/ dL: Desirable L DL-C oylbsrxkgzbjp95 0-159 mg/dL: Borderli ne High Risk LDL-C thnvkxuyrxdkf33 0-189 mg/dL: High ris k LDL-C concentra tion HDL-LDL Cholest adi is affected by a number of facto rs suchas smoking, age and sex.~~~~~~~~~~~ ~~~~~ ~~~~~~~~~~~~~~~ ~~~~~ ~~~~~~~~~~~~~~~ ~~~~~ ~~~~ C REACTIVE [id number] 05:49:00 Test Item Value Reference Range Interpretation [...] AVG 11.04~~~~~~~~~~ ~~~~~~~ ~~~~~~~~~~~~~~~ ~~~~~~~ ~~~~~~~~~~~~~~~ ~~~~~~[facility] Cholest adi Education (NCEP ) Guidelines:~~~~ ~~~~~~~ ~~~~~~~~~~~~~~~ ~~~~~~~ ~~~~~~~~~~~~~~~ ~~~~~~~ ~~~~~ HDL Cholesterol<4 0mg/dL: HDL Cholesterol (Major risk factor for CHD)>60mg/dL: H DL Cholesterol (Ne gative risk factor for CHD)40-59mg/dL: Borderline Risk LDL Cholesterol<1 00mg/dL : Desirable LDL -C tvucxdrlntnlc13 0-159mg /dL: Borderline High Risk LDL-C kknsleymvocmc89 0-189mg /dL: High risk LDL-C concentration H DL-LDL Cholesterol is affected by a n umber of factors such as smoking, age an d sex.~~~~~~~~~~~ ~~~~~~~ ~~~~~~~~~~~~~~~ ~~~~~~~ ~~~~~~~~~~~~~~~ ~~~~~ C REACTIVE [id number] 05:42:00 Test Item Value Reference Range Interpretation Comments C REACTIVE PROTEIN (test code = 51.3 mg/L 0-9 H CRP) [id number] 20:47:00 Test Item Value Reference Range Interpretation Comments GLUBED (test code = GLUBED) 253 MG/DL 74-106 H BASIC METABOLIC [id number] 17:16:00 Test Item Value Reference Range Interpretation Comments SODIUM (test code = 130 mmol/L 137-145 L NA) POTASSIUM (test code 4.6 mmol/L 3.4-5.0 N = K) CHLORIDE (test code = 93 mmol/L 98-107 L CL) CARBON DIOXIDE (test 29 mmol/L 22-30 N code = CO2) GLUCOSE (test code = 404 mg/dL 74-106 HH Critica l Value GLU) reported toFirs t Name:[id number] Joelle polk Name:RESULTS RE AD BACK AND VERIFIEDby C.LAB.AC2, [...] 9.1 mg/dL 8.4-10.2 N CA) LIVER FUNCTION [id number] 17:16:00 Test Item Value Reference Range Interpretation [...] 38-126 N (test code = ALKP) LACTIC [id number] 17:04:00 Test Item Value Reference Range Interpretation Comments LACTIC ACID (test code = LACT) 1.7 mmol/L 0.7-2.0 N - XR FOOT 3 + V [id number] 17:00:00 [facility] : 1965 Sex: M FAX: Giovany Landa MD R1 [place]: St: REG Name: HARJINDER COL[facility] : 1965 Age/S: 55/M [address] Unit #: [id number] Loc: [place] [address] Phys: Giovany Landa MD R1 Acct: [id number] Dis Date: Status: REG ER PHONE #: [phone] Exam Date: 06/28/20201648 FAX #: [phone] Reason: left foot wound EXAMS: CPT CODE: [id number] XR FOOT 3 + V LT [address] EXAM: - XR FOOT 3 + V [...] Signed Report FAX: Giovany Landa MD R1 [place]: St: REG Name: HARJINDER COLUNGA [facility] : 1965 Age/S: 55/M [address] Unit #: [id number] Loc: [place] [address] Phys: Giovany Landa MD R1 Acct: [id number] Dis Date: Status: REG ER PHONE #: [phone] Exam Date: 06/28/20201648 FAX #: [phone] Reason: left foot wound EXAMS: CPT CODE: [id number] XR FOOT 3 + [place] [address] <Continued> Orig Print D/T: S: 06/28/2020 (1763) PAGE 2 Signed ReportUA RFLX MICR CULT IF [id number] 16:19:00 Test Item Value Reference Range Interpretation [...] oth srcSOURCE OF URINE: CLEAN CATCHCBC W/AUTO [id number] 15:48:00 Test Item Value Reference Range Interpretation [...] 3/uL 0.0-0.1 N - XR CHEST 1 [id number] 15:36:00 [facility] BRANSONName: HARJINDER COLUNGA : 1965 Sex: M FAX: Mi Ellis NP [place]: St: PRE -------- Name: HARJINDER COLUNGA [facility] : 1965 Age/S: 55/M [address] Unit #: [id number] Loc: [place] [address] Phys: Mi Ellis NP Acct: [id number] Dis Date: Status: PRE ER PHONE #: [phone] Exam Date: 06/28/20201532 FAX #: [phone] Reason: CODE SEPSIS EXAMS: CPT CODE: [id number] XR CHEST 1 V 04241 EXAMINATION: Frontal chest radiograph INDICATION: Code sepsis COMPARISON: 02/27/2016 FINDINGS: Clear lungs. No pleural effusion or pneumothorax. Normal cardiomediastinal silhouette. IMPRESSION: No acute abnormality identified. at 1536 Reported and signed by: Richard Linda M.D. CC: Mi Ellis NP Technologist: Lindsey Ha; STUDENT 2ND YEAR Trndcrd Date/Time/By: 06/28/2020 (1536) : By: [email or web address] PAGE 1 Signed Report FAX: Mi Ellis NP [place]: [facility]: PRE Name: HARJINDER COLUNGA [facility] [place] : 1965 Age/S: 55/M [address] Unit #: [id number] Loc: [place] [address] Phys: Mi Ellis NP Acct: [id number] Dis Date: Status: PRE ER PHONE #: [phone] Exam Date: 06/28/2020 1533 FAX #: [phone] Reason: CODE SEPSIS EXAMS: CPT CODE: [id number] XR CHEST 1 V 44432 <Continued> Orig Print D/T: S: 06/28/2020 (6136) PAGE 2 Signed Report- US [facility] NON VASC [id number] 15:47:00[facility] CONROEName: HARJINDER COLUNGA : 1965 Sex: M Patient Name: HARJINDER COLUNGA Unit No: [id number] EXAMS: CPT CODE: [id number] [facility] NON VASC L[facility] [address] HISTORY: Infection Location: C3 FINDINGS: Sonographic images of the leg were obtained. No soft tissue fluid collection demonstrated. No cystic or solid mass identified. IMPRESSION: 1. Soft tissue edema without discrete dominant fluid collection or cystic or solid mass lesion. at 1547 Reported and signed by: Donaldo Tang M.D. CC: Rod Cerda NP Technologist: Ely Lopez RDMS Trnscrbd D/ (1547) MerRXC2 Probe: [id number] Orig Print D/T: S: 02/27/2020 (1550) Probe: CAMELIA Vora NAME: [address] PHYS: JOSE MARIA - Rod Cerda [place], [place] [address] : 1965 AGE: 54 SEX: M LOC: [place].ERS PHONE #: [phone] EXAM DATE: 02/27/2020 STATUS: REG ER FAX #: [phone] RAD NO: Page 1 Signed ReportBASIC METABOLIC [id number] 15:20:00 Test Item Value Reference Range Interpretation [...] NORMAL code = LIPINDEX) Index/DL GLUCOSE BEDSIDE [id number] 14:32:00 Test Item Value Reference Range Interpretation Comments GLUCOSE BEDSIDE 459 MG/DL 70-119 HH LOW/HIGH KVNG RT VALUE - TESTING (test code = ACTION REQUIRED GLUBED) - CT ABD PELVIS W/O [id number] 16:45:00 Name: HARJINDER COLUNGA FSED : 1965 Age/S: 54 / M [address] Unit #: [id number] Loc: [address] Phys: Brennan Dupont MD [place], [place] [address] Acct: [id number] Dis Date: Status: REG ER PHONE #: Exam Date: 10/08/2019 2792 FAX #: Reason: R sided flan pain EXAMS: CPT CODE: [id number] CT ABD PELVIS W/O CONT 06933 EXAM: CT of the abdomen and pelvis [...] acute abdominal or pelvic abnormalities. Location code: [facility] at 1645 Reported and signed by: Feliciano Mcdaniel M.D. 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 (test code = UAMICRO) COMPREHENSIVE METABOLIC [id number] 13:06:00 Test Item Value Reference Range Interpretation [...] 50-139 N code = ALKP) CBC W/AUTO [id number] 12:54:00 Test Item Value Reference Range Interpretation [...] REQUIRED (test code NO = MDIFF) CHEM [id number] 14:06:001.11[facility]annCHEM [id number] 14:06:0078 [facility] BlglkldKDAORDLBYW6739-16-85 14:06:26315Xgimwtor HermannHEMATOLOGY 2016-01-03 14:06:00 Test Item Value Reference Range Interpretation Comments PTT (test code = PTT) 24.1 s 22.9-35.8 [facility] IqctldqPJVBHHPXRQ5055-15-75 06:35:004.52[facility] HermannHEMATOLOGY 2016-01-03 06:35:0013.3[facility] HqsofiiEKBJYNUUFK1817-19-19 06:35:009.9[facility] IdyrqjsCOSYFWXAPH8124-48-40 06:35:002.6[facility] HeriwopTYSPTASLFA1343-18-91 06:35:00Normal (01/03/16 1:35 AM)[facility] LuxhzeeKDXJUTCUFK9486-96-62 06:35:00 Normal (01/03/16 1:35 AM)[facility] WeqhabtLGKGZEQAWG2802-66-73 06:35:0019.4 [facility] NframuzZDSWYDOEIM5274-79-60 06:35:0074.2[facility] HermannHEMATOLOGY 2016-01-03 06:35:000.1[facility] UqthzwcPOJTVPELYH1804-34-77 06:35:000.7[facility] GjfnorlRUBEWKXBNM0232-55-25 06:35:000.1[facility] XtgpqlzRPDLZIKTXP7513-73-89 06:35:000.6[facility] IdkdoesCQTHHKZLYP6727-71-41 06:35:000.8[facility] BUTVOITCNP9368-28-96 06:35:005.0[facility] HermannCARDIAC OBOLWDB6403-68-41 06:35:0047[facility] HermannCARDIAC OMBLXWM0029-61-58 06:35:0011[facility] CHEM BQEXJ0397-26-39 06:35:98401Xdwjoejg HermannCHEM NCXOO7004-74-55 06:35:00 13.5[facility] HermannCHEM TNMCH5226-65-47 06:35:0024[facility] HermannCHEM PANEL 2016-01-03 06:35:003.5[facility] HermannCHEM FVFJP4627-59-25 06:35:003.1[facility] HermannCHEM ZCKKE2739-71-85 06:35:77517Styrfdwu HermannCHEM AQGNU3781-50-44 06:35:60217Psvjpvrg HermannCHEM SUVBQ5656-19-45 06:35:008.2[facility] HermannCHEM EIAXF4383-07-36 06:35:009[facility] HermannCHEM ZYFGY5859-71-08 06:35:006.3 [facility] HermannCHEM CENZW7357-87-35 06:35:003.2[facility] HermannCHEM PANEL 2016-01-03 06:35:0061[facility] HermannCHEM GMJIJ7074-94-71 06:35:000.5[facility] HermannCHEM HKFXK7624-89-68 06:35:0011[facility] HermannCHEM LRZMZ3463-34-19 06:35:001.0[facility] HermannCHEM EHHJD6866-13-59 06:35:0022[facility] HermannCHEM WDHLH5415-13-82 06:35:000.88[facility] HermannCHEM AAZMG9381-50-27 06:35:008 [facility]annCHEM YFQCP3136-28-26 06:35:40295Ffujmedk HermannCHEM PANEL 2016-01-03 06:35:001.8[facility] SmljtcjJIYFLPYYDE3279-57-79 06:35:007.9[facility] JzbptonGIMZOEXOUC3352-02-73 06:35:85597Mmppiccz UufihrhVYUFGGLGJZ9763-40-03 06:35:0034.8[facility] RtyckvkWXCLSFDHRO3595-07-36 06:35:00 Test Item Value Reference Range Interpretation Comments MCH (test code = MCH) 30.9 pg 27.0-31.0 [facility] JznigxpWQZIWPJYMA4938-94-88 06:35:0088.8[facility] HermannHEMATOLOGY 2016-01-03 06:35:0040.2[facility] OhbotxmPDMTFXXHFZ1280-06-86 06:35:0014.0[facility] LkzxmjeWCPKPIKQUK2805-37-40 06:35:0012.8[facility] HermannCHEM SKRCH8046-60-20 10:18:008.1[facility] HermannCHEM UNBRY1981-19-33 10:18:0026[facility] HermannCHEM KZKVP1506-58-79 10:18:18911Xghgffvg HermannCHEM IRUVC7982-02-02 10:18:009 [facility] HermannCHEM JQGPO2474-11-23 10:18:004.0[facility] HermannCHEM PANEL 2015-12-19 10:18:52496Vticofdx HermannCHEM KMPFN8794-56-49 10:18:89203Ekyedenz HermannCHEM DIGVW4495-62-14 10:18:30225Nuaasysc HermannCHEM NARPV5107-23-08 10:18:000.76[facility] HermannCHEM ETCNV1152-30-53 10:18:0012.0[facility] VAQPNEAEEE0866-12-92 10:18:00 Test Item Value Reference Range Interpretation Comments MCH (test code = MCH) 30.4 pg 27.0-31.0 Memorial CvwnrwiEJVRVIAYGB1862-31-95 10:18:41042Uzxhunvf HermannHEMATOLOGY 2015-12-19 10:18:0034.3[facility] QfnxhudALNXFLCCVN5781-94-06 10:18:008.2[facility] UwvfxwqOEKYLLCFOH8458-78-81 10:18:0012.4[facility] FdpsseyMITKOLFTAU3772-90-99 10:18:0010.3[facility] GkoyxorPAEOFYWZQR1900-83-72 10:18:004.51[facility] CDBDROLCNB8523-72-73 10:18:0088.7[facility] PuqsnyoKSBUKYSGSS0555-76-82 10:18:00 13.7[facility] JsutjmaDWUGSPXJDS6203-63-66 10:18:0040.0[facility] HermannHEMATOLOGY 2015-12-19 10:18:0018.9[facility] FwtdbrhQXOXITILWI6396-84-85 10:18:0073.5[facility] IwlyfewNSILXLBYCJ3039-76-25 10:18:006.7[facility] WovvhfkJMGUMWTBLK3084-68-68 10:18:007.6[facility] VszrrucLDMWXTOQRB7778-78-59 10:18:000.4[facility] HKLYPCMIWR0061-90-09 10:18:000.0[facility] CmjpfadAZLFLRHFAV6459-35-80 10:18:000.7 [facility] XignlqtUBDUEBSBJR1227-87-06 10:18:000.5[facility] HermannHEMATOLOGY 2015-12-19 10:18:001.9[facility] MkaaqkjTPBMKRSKXV3881-87-57 10:18:000.0[facility] HermannCHEM BGMVT3200-92-17 04:30:0090[facility] HermannCHEM GPYMH1531-62-64 04:30:007.8[facility] HermannCHEM WIOMN5230-15-32 04:30:000.6[facility] HermannCHEM EMSZY4673-08-62 04:30:0062[facility] HermannCHEM JCILT7475-87-98 04:30:0010 [facility] HermannCHEM LMRAH2200-43-42 04:30:0013.0[facility] HermannCHEM PANEL 2015-12-13 04:30:0024[facility] HermannCHEM XXOOB4972-13-29 04:30:001.34[facility] HermannCHEM EVEZT3913-41-41 04:30:05538Yvahakbi HermannCHEM DPWGM5560-11-89 04:30:0015[facility] HermannCHEM YGLYG0560-60-97 04:30:0017[facility] HermannCHEM VBWTK7186-79-69 04:30:003.7[facility] HermannCHEM IVPIB8762-71-20 04:30:0011 [facility] HermannCHEM KEBYG1359-88-07 04:30:004.0[facility] HermannCHEM PANEL 2015-12-13 04:30:008.6[facility] HermannCHEM DPAZV0867-83-39 04:30:33134Viliqbpw HermannCHEM PPNDQ0924-21-49 04:30:0099[facility] HermannCHEM UMTGC0755-25-68 04:30:004.1[facility] HermannCHEM DYKMQ7687-48-31 04:30:000.9[facility] KBQREXVHKJ2666-18-09 04:30:000.4[facility] HcgwxstNIINSIVSGR9795-33-70 04:30:000.0 Memorial JfwaomuVOBYQYOLSM4315-43-99 04:30:001.3[facility] HermannHEMATOLOGY 2015-12-13 04:30:006.1[facility] SexbyfvULICVJLWCE5780-47-73 04:30:000.3[facility] EgumbrlFXJURGFRLA6783-12-78 04:30:000.4[facility] TubryqqZSQAPUJGEF7630-64-53 04:30:005.5[facility] DpaxmlrHJQMLVETYL4161-91-30 04:30:0077.4[facility] DHTLYPSFWL3203-02-18 04:30:0016.4[facility] DqhuykyGTJQDUZREF5151-25-87 04:30:00 340[facility] RcvqcetDREDVFPVEA4515-65-96 04:30:008.4[facility] HermannHEMATOLOGY 2015-12-13 04:30:0034.2[facility] EhxdpngYLFUIBNMFH5149-54-69 04:30:0012.8[facility] JqsjdinWVINVISFKJ8838-41-92 04:30:0015.3[facility] VrlbfynCKMRBPPAUG9919-64-28 04:30:0044.7[facility] XfehguiTQVJJCDVYG4044-78-42 04:30:00 Test Item Value Reference Range Interpretation Comments MCH (test code = MCH) 30.6 pg 27.0-31.0 Memorial RltqmnyIPZYYNUPIX5436-56-71 04:30:0089.4[facility] HermannHEMATOLOGY 2015-12-13 04:30:007.9[facility] EbtmpfqOMJDBRHAKB2845-49-34 04:30:004.99[facility] KoyxrhmHTONJSMQVV4565-39-51 04:30:00<2[facility] LpleasnXKZLPLXDZM5861-02-96 04:30:00<0.003[facility] PzmwjcqILFZGEBFYP1818-19-84 04:30:00<3[facility] MfpecynJNCIXSKIUB5987-13-69 04:30:004.1[facility] Notes Date/Time Note Provider Source 2022-11-14 Formatting of this note might be differe nt from the original. Dahiana Garcia RN [facility] 10:52:03-00:00 Notification from [facility] drug-disease interaction. Metformin and CHF Placed in providers folder for review Electronically signed by Dahiana Garcia RN at 0 11/14/2022 10:55 AM CDT 2022-02-17 [id number] [facility] 16:00:00-00:00 PATIENT NAME: HARJINDER COLUNGA ADMIT DATE: 01/01/22 ACCOUNT NO: [id number] ROOM NO: V.3047 AGE: 56 REPORT TYPE: 360 - QUERY RESPONSE DOCUMENT SEX: M DATE OF : [birth year] ADMITTING PHYSICIAN:Ab Lucas MD ATTENDING PHYSICIAN:Ab Lucas MD Provider Query QUERY TEXT: Relationship Diagnoses General 360MD Query related questions should be directed to:[employer] Coding Query Helpline Please clarify the relationship, [...] 360MD Query related questions should be directed to:[email or web address] Coding Query Helpline Based on your clinical judgment, can you provide the known or suspected condition(s) that represent(s) the clinical indicators listed below and if the condition(s) are present on admission (POA)? The following definitions are provided based on industry literature and in collaboration with [facility] for your reference [...] on at 1600 PATIENT NAME: HARJINDER COLUNGA [birth year] 2022-01-05 [facility] 10:29:00-00:00 [facility] ([facility]) Discharge Summary REPORT#:[id number] REPORT STATUS: Signed DATE:01/05/22 TIME: 1029 PATIENT: HARJINDER COLUNGA UNIT #: [id number] ROOM/BED: [address] : [birth year] AGE: 56 SEX: M ATTEND: Zoya Lucas MD ADM AUTHOR: Armida Marmolejo VAMP CUT OUT WORKER * ALL edits or amendments must be made on the [employer]/computer document * PCP PCP PCP: PCP: Dr. Jhon Jones Discharge to: home General Information Problem List/A P: 1. Cellulitis of left anterior lower leg 2. Uncontrolled type 2 diabetes mellitus with h yperglycemia, with long-term current use of insulin 3. Well-controlled hypertension 4. Tobacco use disorder 5. Hyperlipidemia due to type 2 diabetes [facility] 6. Ambulatory dysfunction 7. Hypomagnesemia [...] Type 2 DM with hyperglycemia, wi th longwall foreman current use of insulin blindness- 12/31 Serum glucose 216. HbA1C ordered. Maintain nutritional support with ADA diet. Monitor FSBG ac hs. Home dose of Lantus Insulin 15u q hs; medium dose sliding scale insu osiris. 3. Controlled HTN- Admit BP 137/77; home dose of Losartan resumed. Monitor BP. 4. 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 H P, Obs, [address], > 70 mins 01/01/22 1. Cellulitis Left [...] insulin, blindness- 12/31 Serum glucose 216. 01/01 PlQ3D=43.1. Maintain nutritional support with ADA diet. Monitor [...] Lovenox DNR status per patient preference. Inpatient, 85888, > 35 mins 01/02/22 1. Cellulitis Left Anterior Lower Extremity- Cellulitis slowly improving. Pt is on tramadol as needed for pa in management. On IV vancomycin and zosyn. Pharmacy following for vancomycin dosing. 2. Uncontrolled Type 2 DM with hyperglycemia, wi th longwall foreman current use of insulin, blindness- 01/01 KlC0U=65.1. On lantus insulin just titrated the dose [...] Pepcid, Lovenox DNR status per patient preference. 90851, > 35 mins 01/03/22 1. Cellulitis Left Anterior Lower Extremity- Cellulitis slowly improving. Pt is on tramadol as needed for pain management. pineda ed vancomycin and zosyn to Unasyn. 2. Uncontrolled Type 2 DM with hyperglycemia, wi th longwall foreman current use of insulin, blindness- 01/01 KwQ7O=89.1. On lantus i nsulin , BG 155. continue to monitor BG ac and hs 3. Controlled HTN- on Losartan , Monitor BP. 4. Tobacco Use Disorder with 40 pack years, use of smokeless tobacco, chronic cough- Continue nicotine patch 5. 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 Ppx: Pepcid, Lovenox DNR status per patient preference. 57197, > 35 mins 01/04/22 1. Cellulitis Left Anterior Lower Extremity- Jaqueline lulitis improving. Pt is on tramadol as needed for pain management. On Unasy n. 2. Uncontrolled Type 2 DM with hyperglycemia, wi th longterm current use of insulin, blindness- 01/01 CaM1I=32.1. On lantus i nsulin , BG 155. continue to monitor BG ac and hs 3. Controlled HTN- on Losartan , Monitor BP. 4. Tobacco Use Disorder with 40 pack years, use of smokeless tobacco, chronic cough- Continue nicotine patch 5. 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 Ppx: Pepcid, Lovenox DNR status per patient preference. 85796, > 35 mins 01/05/22 Patient got admitted [...] Result Date Time Pulse Ox 97 01/05 0804 B/P 120/73 01/05 0804 B/P Mean 88.8 01/05 0804 O2 Delivery Room air 01/05 0804 Temp 97.7 01/05 0804 Pulse 69 01/05 0804 Resp 18 01/05 [...] edema-all extremities Musculoskeletal: right BKA, uses wheelchair Neuro/LENS GRINDER ROUGH: alert, oriented X 3 Skin: intact Psychiatry: [...] Signed by Ab Lucas MD on at 1835 RPT #:[id number] END OF REPORT 2022-01-04 [facility] 21:24:00-00:00 [facility] Prog. Note REPORT#:[id number] REPORT STATUS: Signed DATE:01/04/22 TIME: 2123 PATIENT: HARJINDER COLUNGA UNIT #: [id number] ROOM/BED: [address] : 69 AGE: 56 SEX: M ATTEND: Zoya Lucas MD ADM AUTHOR: Armida Marmolejo NP * ALL edits or amendments must be made on the [employer] document * Subjective Chief complaint: Left Leg [...] O2 Flow FiO2 Mean Ox Delivery Rate 01/04 2342 [...] DERM Acetaminophen (TYLENOL EXTRA STRENGTH) 500 MG Q 6H PRN PRN PO Benzonatate (BENZONATATE) 100 MG [...] edema Musculoskeletal: no muscle spasm, Right BKA Neuro/LENS GRINDER ROUGH: alert, oriented x 3, CNII-XII intact, normal [...] 5. Hyperlipidemia due to type 2 diabetes [facility] 6. Ambulatory dysfunction 7. Hypomagnesemia [...] Type 2 DM with hyperglycemia, wi th [place] foreman current use of insulin blindness- 12/31 Serum glucose 216. HbA1C ordered. Maintain nutritional support with ADA diet. Monitor FSBG ac hs. Home dose of Lantus Insulin 15u q hs; medium dose sliding scale insu osiris. 3. Controlled HTN- Admit BP 137/77; home dose of Losartan resumed. Monitor BP. 4. 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 H P, Obs, [id number], > 70 mins 01/01/22 1. Cellulitis Left [...] insulin, blindness- 12/31 Serum glucose 216. 01/01 RxH1L=43.1. Maintain nutritional support with ADA diet. Monitor [...] Lovenox DNR status per patient preference. Inpatient, 86348, > 35 mins 01/02/22 1. Cellulitis Left Anterior Lower Extremity- Cellulitis slowly improving. Pt is on tramadol as needed for pa in management. On IV vancomycin and zosyn. Pharmacy following for vancomycin dosing. 2. Uncontrolled Type 2 DM with hyperglycemia, wi th longwall foreman current use of insulin, blindness- 01/01 GhZ8L=90.1. On lantus insulin just titrated the dose [...] Pepcid, Lovenox DNR status per patient preference. 15171, > 35 mins 01/03/22 1. Cellulitis Left Anterior Lower Extremity- Cellulitis slowly improving. Pt is on tramadol as needed for pain management. pineda ed vancomycin and zosyn to Unasyn. 2. Uncontrolled Type 2 DM with hyperglycemia, wi th longterm current use of insulin, blindness- 01/01 VeG8M=42.1. On lantus i nsulin , BG 155. continue to monitor BG ac and hs 3. Controlled HTN- on Losartan , Monitor BP. 4. Tobacco Use Disorder with 40 pack years, use of smokeless tobacco, chronic cough- Continue nicotine patch 5. 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 Ppx: Pepcid, Lovenox DNR status per patient preference. 33722, > 35 mins 01/04/22 1. Cellulitis Left Anterior Lower Extremity- Jaqueline lulitis improving. Pt is on tramadol as needed for pain management. On Unasy n. 2. Uncontrolled Type 2 DM with hyperglycemia, wi th longwall foreman current use of insulin, blindness- 01/01 DtG4N=35.1. On lantus i nsulin , BG 155. continue to monitor BG ac and hs 3. Controlled HTN- on Losartan , Monitor BP. 4. Tobacco Use Disorder with 40 pack years, use of smokeless tobacco, chronic cough- Continue nicotine patch 5. 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 Ppx: Pepcid, Lovenox DNR status per patient preference. 13175, > 35 mins Electronically Signed by Armida Marmolejo NP on 12/20 12/10 at 2119 Electronically Signed by Ab Lucas MD on at 1835 RPT #:[id number] END OF REPORT 2022-01-03 [facility] 22:24:00-00:[address] [facility] [place], [place]) Internal Medicine Prog. Note REPORT#:[id number] REPORT STATUS: Signed DATE:01/03/22 TIME: 2223 PATIENT: HARJINDER COLUNGA UNIT #: [id number] ROOM/BED: [address] : [birth year] AGE: 56 SEX: M ATTEND: Zoya Lucas MD ADM AUTHOR: Armida Marmolejo NP * ALL edits or amendments must be made on the [employer] document * Subjective Chief complaint: Left Leg [...] edema Musculoskeletal: no muscle spasm, Right BKA Neuro/LENS GRINDER ROUGH: alert, oriented x 3, CNII-XII intact, normal [...] (Auto) (25.0 - 55.0 %) 23.2 L Power % (Auto) (0.0 - 10.0 %) 8.6 Eos % (Auto) (0.0 - 5.0 %) 2.4 Baso % (Auto) (0.0 - 1.0 %) 0.5 Neut # (Auto) (1.8 - 7.7 K/mm3) 2.65 Lymph # (Auto) (1.0 - 5.0 K/mm3) 0.95 L Power # (Auto) (0 - 0.8 K/mm3) 0.35 [...] 5. Hyperlipidemia due to type 2 diabetes [facility] 6. Ambulatory dysfunction 7. Hypomagnesemia [...] Type 2 DM with hyperglycemia, wi th longwall foreman current use of insulin blindness- 12/31 Serum glucose 216. HbA1C ordered. Maintain nutritional support with ADA diet. Monitor FSBG ac hs. Home dose of Lantus Insulin 15u q hs; medium dose sliding scale insu osiris. 3. Controlled HTN- Admit BP 137/77; home dose of Losartan resumed. Monitor BP. 4. 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 H P, Obs, 05950, > 70 mins 01/01/22 1. Cellulitis Left [...] insulin, blindness- 12/31 Serum glucose 216. 01/01 IlW2O=03.1. Maintain nutritional support with ADA diet. Monitor [...] Lovenox DNR status per patient preference. Inpatient, 76784, > 35 mins 01/02/22 1. Cellulitis Left Anterior Lower Extremity- Cellulitis slowly improving. Pt is on tramadol as needed for pa in management. On IV vancomycin and zosyn. Pharmacy following for vancomycin dosing. 2. Uncontrolled Type 2 DM with hyperglycemia, wi th longterm current use of insulin, blindness- 01/01 AjO9Q=42.1. On lantus insulin just titrated the dose [...] Pepcid, Lovenox DNR status per patient preference. 37061, > 35 mins 01/03/22 1. Cellulitis Left Anterior Lower Extremity- Cellulitis slowly improving. Pt is on tramadol as needed for pain management. pineda ed vancomycin and zosyn to Unasyn. 2. Uncontrolled Type 2 DM with hyperglycemia, wi th longwall foreman current use of insulin, blindness- 01/01 FxH4G=95.1. On lantus i nsulin , BG 155. continue to monitor BG ac and hs 3. Controlled HTN- on Losartan , Monitor BP. 4. Tobacco Use Disorder with 40 pack years, use of smokeless tobacco, chronic cough- Continue nicotine patch 5. 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 Ppx: Pepcid, Lovenox DNR status per patient preference. 31056, > 35 mins Electronically Signed by Armida Marmolejo NP on 12/20 09/09 at 2232 Electronically Signed by Ab Lucas MD on at 1423 RPT #:[id number] END OF REPORT 2022-01-02 [facility] 17:16:00-00:00 [facility] ([facility]) Internal Medicine Prog. Note REPORT#:[id number] REPORT STATUS: Signed DATE:01/02/22 TIME: 1715 PATIENT: HARJINDER COLUNGA UNIT #: [id number] ROOM/BED: [address] : [birth year] AGE: 56 SEX: M ATTEND: Zoya Lucas MD ADM AUTHOR: Armida Marmolejo NP * ALL edits or amendments must be made on the [employer] document * Subjective Chief complaint: Left Leg [...] edema Musculoskeletal: no muscle spasm, Right BKA Neuro/LENS GRINDER ROUGH: alert, oriented x 3, CNII-XII intact, normal [...] % (Auto) (25.0 - 55.0 %) 26.7 Power % (Auto) (0.0 - 10.0 %) 6.8 Eos % (Auto) (0.0 - 5.0 %) 2.7 Baso % (Auto) (0.0 - 1.0 %) 0.7 Neut # (Auto) (1.8 - 7.7 K/mm3) 2.75 Lymph # (Auto) (1.0 - 5.0 K/mm3) 1.17 Power # (Auto) (0 - 0.8 K/mm3) 0.30 [...] 5. Hyperlipidemia due to type 2 diabetes [facility] 6. Ambulatory dysfunction 7. 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 H P, Obs, 73011, > 70 mins 01/01/22 1. Cellulitis Left [...] insulin, blindness- 12/31 Serum glucose 216. 01/01 SpP9K=63.1. Maintain nutritional support with ADA diet. Monitor [...] Lovenox DNR status per patient preference. Inpatient, 49753, > 35 mins 01/02/22 1. Cellulitis Left Anterior Lower Extremity- Cellulitis slowly improving. Pt is on tramadol as needed for pa in management. On IV vancomycin and zosyn. Pharmacy following for vancomycin dosing. 2. Uncontrolled Type 2 DM with hyperglycemia, wi th longterm current use of insulin, blindness- 01/01 OvE8Z=87.1. On lantus insulin just titrated the dose up, will continue to monitor BG ac and hs 3. Controlled HTN- on Losartan , Monitor BP. 4. Tobacco Use Disorder with 40 pack years, use of smokeless tobacco, chronic cough- Continue nicotine patch 5. 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 Ppx: Pepcid, Lovenox DNR status per patient preference. 88370, > 35 mins Electronically Signed by Armida Marmolejo NP on 12/20 08/10 at 1728 Electronically Signed by Ab Lucas MD on at 1422 RPT #:[id number] END OF REPORT 2022-01-02 [facility] 07:17:00-00:[address] [facility] [place] [place]) Pharmacy Prog.Note-Vancomycin REPORT#:[id number] REPORT STATUS: Signed DATE:01/02/22 TIME: 716 PATIENT: HARJINDER COLUNGA UNIT #: [id number] ROOM/BED: [place] [address] : [birth year] AGE: 56 SEX: M ATTEND: Zoya Lucas MD ADM AUTHOR: Thong Matt [facility] * ALL edits or amendments must be made on the [employer] document * Vancomycin Vancomycin Medication Therapy Goal: trough 10-15 mcg/mL Indication for treatment: SSTI Current therapy: vancomycin 1000 mg IV q12h Weight: Actual weight (kg): 77.3 VS and I/O: Vital Signs Date Temp Pulse Resp B/P B/P Mean Pulse Ox FiO2 12/31-01/02 97.5-98.4 72-91 15-20 102-165/62-78 75.1-100.6 91-99 72 hours ending at 0700 01/02 19001/01 19012/30 07 1900 Intake Total Output Total Balance Patient 77.273 kg Weight Weight Stated/Rep orted Measuremen t Method 72 Hour I O Total 01/02 07 Intake Total Output Total Balance Labs: Laboratory Tests: 01/01 2038 Toxicology Vancomycin Trough (10 - 20 ug/mL) 10.5 Laboratory Test : 01/02 126 Chemistry BUN (7 - 18 mg/dL) 8 [...] will continue to follow. at 0719 RPT #:[id number] END OF REPORT 2022-01-01 [facility] 22:53:00-00:00 [facility] Internal Medicine Prog. Note REPORT#:[id number] REPORT STATUS: Signed DATE:01/01/22 TIME: 2252 PATIENT: HARJINDER COLUNGA UNIT #: [id number] ROOM/BED: [address] : [birth year] AGE: 56 SEX: M ATTEND: Zoya Lucas MD ADM AUTHOR: Chris Trotter VAMP CUT OUT WORKER * ALL edits or amendments must be made on the [employer] document * Subjective Chief complaint: Left Leg [...] Nicotine (HABITROL 14MG PATCH) 14 MG DAILY MERCEDES SDERM Acetaminophen (TYLENOL EXTRA STRENGTH) 500 MG Q6 [...] edema Musculoskeletal: no muscle spasm, Right BKA Neuro/LENS GRINDER ROUGH: alert, oriented x 3, CNII-XII intact, normal [...] 5. Hyperlipidemia due to type 2 diabetes [facility] 6. Ambulatory dysfunction 7. Hypomagnesemia 8. Left great toe amputee 9. Hx of right BKA 10. Chronic cough 11. Blind 12. 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 H P, Obs, 61987, > 70 mins 01/01/22 1. 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 01/01 QgN8H=92.1. Maintain nutritional support with ADA diet. Monitor [...] Lovenox DNR status per patient preference. Inpatient, 80557, > 35 mins Attestations Attestation needed: supervising physician at 1310 Electronically Signed by Ab Lucas MD on at 1421 RPT #:[id number] END OF REPORT 2021-12-31 [id number] [facility] 17:43:00-00:00 PATIENT NAME: HARJINDER COLUNGA ADMIT DATE: 12/31/21 ACCOUNT NO: [id number] ROOM NO: [facility] AGE: 56 REPORT TYPE: eNVL VENOUS ULTRASOUND SEX: M DATE OF : 69 ADMITTING PHYSICIAN:Ab Lucas MD ATTENDING PHYSICIAN:Ab Lucas MD *[facility]* [address] [place], [place] [address] Limited Lower Extremity Venous Duplex Evaluation Patient: Harjinder Colunga Study Date: 12/31/2021 BP: Location: [facility] URN: [id number] : 1965 Age: 56 Height: / Gender: M Weight: / BMI/BSA: / *Ordering Physician: * Jerry Roa *Interpreting Physician: * Baudilio Doyle MD *Aviation Maintenance Instructor: * Cassidy Mcneal Indications: Pain. Study data: Limited lower extremity venous duple x evaluation. Left evaluation with grayscale 2D imaging, color Dopp ler imaging, and spectral Doppler analysis. Location: [facility]. Patient status: Inpatient. Patient room number: RM-C. [...] on 0 12/31/21 at 1743 PATIENT NAME: AHRJINDER COLUNGA 966 2021-12-31 [facility] 15:08:00-00:00 [facility] ([facility]) History Physical - Adult REPORT#:[id number] REPORT STATUS: Signed DATE:12/31/21 TIME: 1508 PATIENT: HARJINDER COLUNGA UNIT #: [id number] ROOM[facility]BED: [facility] : [birth year] AGE: 56 SEX: M ATTEND: Zoya Lucas MD ADM AUTHOR: Chris Trotter VAMP CUT OUT WORKER * ALL edits or amendments must be made on the [employer] document * History of Present Illness HPI [...] mellitus, Hypertension, Dyslip idemia. Additional medical history: [place] in 2003, legally blind Past surgical history: [...] 600 MG TAB QID PRN PRN PAIN 191 Current Hospital Medications: Anti-Infective Agents Sig/Bita Start time Last Medication Dose Route Stop Time Status Admin Piperacillin Sod/ 3.375 G X1ED STA 12/31 1119 D Cr 12/31 Tazobactam Sod IV 12/31 1148 1132 (ZOSYN) Sodium Chloride 100 ML (SODIUM CHLORIDE 0.9%) Vancomycin HCl 1,000 MG X1ED STA 12/31 1119 DCr 09/12 (VANCOMYCIN HCL) IV 12/31 1218 1131 Sodium [...] DVT Musculoskeletal: no muscle spasm, Right BKA Neuro/LENS GRINDER ROUGH: alert, oriented X 3, normal speech, C VANESSA-XII grossly intact Snover Coma Score: Copyright Sir Noble Guerra Copyright [...] (Auto) (25.0 - 55.0 %) 14.4 L Power % (Auto) (0.0 - 10.0 %) 5.1 Eos % (Auto) (0.0 - 5.0 %) 1.6 Baso % (Auto) (0.0 - 1.0 %) 0.4 Neut # (Auto) (1.8 - 7.7 K/mm3) 6.46 Lymph # (Auto) (1.0 - 5.0 K/mm3) 1.19 Power # (Auto) (0 - 0.8 K/mm3) 0.42 [...] appear edematous. Correlate with physical exam. Location: [facility] Impression By: Alma Rae MD RADIOLOGY - [...] The data below has been imported from [facility]. Any exceptions have been noted below under [...] 5. Hyperlipidemia due to type 2 diabetes [facility] 6. Ambulatory dysfunction 7. 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 H P, Obs, 38648, > 70 mins Attestations Attestation needed: supervising physician at 1851 Electronically Signed by Ab Lucas MD on at 1422 RPT #:[id number] END OF REPORT 2021-12-31 [facility] 11:20:00-00:00 [facility] ([facility]) EMERGENCY PROVIDER REPORT REPORT#:[id number] REPORT STATUS: Signed DATE:12/31/21 TIME: 1120 PATIENT: HARJINDER COLUNGA UNIT #: [id number] ROOM/BED: AGE: 56 SEX: M PCP PHYS: No Primary or Family Ph ysician SERVICE AUTHOR: Jerry Roa MD * ALL edits or amendments must be made on the [employer] document * HPI-General Illness General Initial Greet [...] mellitus, Hypertension, Dyslip idemia. Additional Medical History [place] in 2003 Past Surgical History: Reports: Amputation. [...] Pulse Ox 96 09 1119 B/P 137/77 12/31 1119 B/P Mean 97 12/31 1119 O2 Delivery Room air 12/31 1119 Temp 36.9 / 1119 Pulse 91 12/31 1119 Resp 20 [...] (Auto) (25.0 - 55.0 %) 14.4 L Power % (Auto) (0.0 - 10.0 %) 5.1 Eos % (Auto) (0.0 - 5.0 %) 1.6 Baso % (Auto) (0.0 - 1.0 %) 0.4 Neut # (Auto) (1.8 - 7.7 K/mm3) 6.46 Lymph # (Auto) (1.0 - 5.0 K/mm3) 1.19 Power # (Auto) (0 - 0.8 K/mm3) 0.42 [...] X1ED STA 12/31 1118 D C 12/31 IV 12/31 1217 1130 Hormones And [...] 1119 Temp 36.9 12/31 1119 Pulse 91 /12 1119 Resp 20 12/31 1119 Last Documented: Result Date Time Pulse Ox 96 12/31 1119 B/P 137/77 / 1119 B/P Mean 97 12/31 1119 O2 Delivery Room air 12/31 1119 Temp 36.9 /12 1119 Pulse 91 / 1119 Resp 20 12/31 1119 All vital signs available at the time of this en try have been reviewed. Clinical Impression Clinical Impression Primary Impression: Cellulitis Disposition Decision Admit Admit Physician Name Ab Lucas MD Admit Physician Rand Butting Machine Operator Physician Request Time 1330 Request Date 12/31/21 )( Admission Accepts Yes )( Accepted Time 1330 )( Accepted Date 12/31/21 Call Information will see patient, agrees with eval, agrees with plan Electronically Signed by Jerry Roa MD on 12/20 06/12 at 1330 RPT #:[id number] END OF REPORT 2021-10-07 [facility] 07:00:00-00:00 [facility] ([facility]) EMERGENCY PROVIDER REPORT REPORT#:[id number] REPORT STATUS: Signed DATE:10/07/21 TIME: 0700 PATIENT: HARJINDER COLUNGA UNIT #: [id number] ROOM/BED: AGE: 56 SEX: M PCP PHYS: No Primary or Family Ph ysician SERVICE DT: AUTHOR: Jerry Roa MD * ALL edits or amendments must be made on the [employer] document * HPI-General Illness General Initial Greet [...] mellitus, Hypertension, Dyslip idemia. Additional Medical History [place] in 2003 Past Surgical History: Reports: Amputation. [...] 10/07 0658 Pulse 83 10/07 0658 Resp 10/0758 Last Documented: Result Date Time Pulse Ox [...] Result Date Time Pulse Ox 99 10/07 657 B/P 157/75 10/07 657 B/P Mean 102 10/07 657 Temp 36.7 10/07 657 Pulse 83 10/07 657 Resp 17 10/07 657 Last Documented: Result Date Time Pulse Ox 99 06/19 0658 B/P 157/75 10/07 0658 B/P Mean 102 10/07 0558 Temp 36.7 10/07 657 Pulse 83 10/07 0658 Resp 17 10/07 [...] Referrals Provider Referral: Gilbert Salinas DO Address: [address] [place] [address] [address] [place], [place] [address] Provider Referral: Rodriguez Salinas DO Follow-Up: 1-2 Days Address: [address] [place] [address] [address] [place] [address] Electronically Signed by Jerry Roa MD on 09/19 01/10 at 0705 RPT #:[id number] END OF REPORT 2021-08-06 [facility] 16:40:00-00:00 [facility] ([facility]) EMERGENCY PROVIDER REPORT REPORT#:[id number] REPORT STATUS: Signed DATE:08/06/21 TIME: 1640 PATIENT: HARJINDER COLUNGA UNIT #: [id number] ROOM/BED: AGE: 56 SEX: M PCP PHYS: No Primary or Family P hysician SERVICE AUTHOR: Brennan Dupont MD * ALL edits or amendments must be made on the el [employer]/computer document * HPI-General Illness Free Text HPI Notes Free Text HPI Notes This is a 56-year-old male h istory of diabetes, hypertension, who presents with hyperglycemia. Patient states he has been out of insulin since 07/22/2021. Patient denies fevers chills cough. States that he wants to be placed in a senior living. General Initial Greet Date/Time 08/06/21 1518 Presentation [...] DAILY #30 TAB Prov: 07/01/20 DC: 08/06/21 1829 INSULIN GLARGINE (LANTUS) 15 UNITS SUBQ BEDTIME INSULIN GLARGINE (LANTUS) 15 UNITS SUBQ BEDTIME #5 Prov: 07/01/20 DC: 08/06/211828 INSULIN LISPRO (HumaLOG) 5 UNITS SUBQ AC INSULIN LISPRO (HumaLOG) 5 UNITS SUBQ AC #5 Prov: 07/01/20 DC: 08/06/21 182 metFORMIN (GLUCOPHAGE) 500 MG PO BID metFORMIN (GLUCOPHAGE) 500 MG PO BID #60 TABS Prov: 12/24/20 DC: 08/06/211828 Calculated Suicide Risk (nurs) No risk Past Medical History: Reports: Diabetes mellitus (BS 168 MG/DL LAST PM ). Additional Medical History [place] in 2003 Additional Surgical History None Family [...] normal limits Musculoskeletal: normal inspection, normal tone Neuro/LENS GRINDER ROUGH: alert oriented x 3, nonfocal Skin: warm, [...] pH (5.0 - 8.0) 6.0 Ur Specific [place] (1.001 - 1.035) 1.020 Urine Protein (Neg [...] 1545 IMPRESSION: No acute cardiopulmonary process. Location: [facility] Impression By: MerDK - Ramu Ramos M.D. [...] symptoms should prompt an immediate return to [facility] or the closest emergency department or a call to 911. at 1947 RPT #:[id number] END OF REPORT 2020-12-24 [facility] 12:15:00-00:00 [facility] ([facility]) EMERGENCY PROVIDER REPORT REPORT#:[id number] REPORT STATUS: Signed DATE:12/24/20 TIME: 1215 PATIENT: HARJINDER COLUNGA UNIT #: [id number] ROOM/BED: AGE: 55 SEX: M PCP PHYS: No Primary or Family Ph ysician SERVICE AUTHOR: Jerry Roa MD * ALL edits or amendments must be made on the [employer] document * HPI-Dizziness/Weakness General Initial Greet Date/Time [...] and squeezes hands appropriately upon command. Normal yzoh-kf-bvlk eye mo vements on extraocular muscle testing. [...] MG/DL LAST PM ). Additional Medical History [place] in 2003 Additional Surgical History None Family [...] 1206 Temp 36.7 12/24 1206 Pulse 94 / 1206 Resp 16 12/24 1206 Last Documented: Result Date Time Pulse Ox 100 / 1350 B/P 160/72 12/24 1350 B/P Mean 101 / 1350 O2 Delivery Room air 12/24 1350 Pulse 79 12/24 1350 Resp 20 12/24 1350 Temp 36.7 12/24 1206 Review of Vital Signs Reviewed Focused [...] pH (5.0 - 8.0) 6.0 Ur Specific [place] (1.001 - 1.035) 1.020 Urine Protein (Neg [...] LOCATION: [facility] Impression By: Ashanti - Mayuri Perla Bishop.OTish Point of Care Testing Pulse Oximetry Pulse Ox % 98 On: Room air Interpretation Interpreted by me, Pulse oximetr y normal Time 1218 ECG #1 Interpretation Time 1246 Interpreted by ED physician NL ECG Interpretation Normal rate, No STEMI, Nor mal axis, Normal intervals, Adequate tracing ECG Q-T-ST - [place] Non-specific ST changes Conduction/[place] RBBB - complete Re-Evaluation MDM Re-Evaluation/Progress #1 [...] B/P 134/72 / 1206 B/P Mean 92 / 1206 O2 Delivery Room air / 1206 Temp 36.7 /05 1206 Pulse 94 09/ 1206 Resp 16 / 1206 Last Documented: Result Date Time Pulse Ox 100 / 1350 B/P 160/72 12/24 1350 B/P Mean 101 /05 1350 O2 Delivery Room air 09/05 1350 Pulse 79 09/05 1350 Resp 20 09/ 1350 Temp 36.7 09/05 1206 All vital signs available at the [...] Care Referrals Narda Oshea M: 1-2 Days [facility]: 1-2 Days Electronically Signed by Jerry Roa MD on 09/08 at 1644 [facility] #:[id number] END OF REPORT 2020-08-14 [id number] [facility] 18:14:00-00:[address] [place] [address] PATIENT NAME: HARJINDER COLUNGA ADMIT DATE: 1 ACCOUNT NO: [id number] ROOM NO: C.OBS14 AGE: 55 REPORT TYPE: DISCHARGE SUMMARY SEX: M ADMITTING PHYSICIAN:Nathanael Laureano ATTENDING PHYSICIAN:Nathanael Laureano ADMISSION DATE: 06/28/2020 DISCHARGE DATE: 07/05/2020 BRIEF SUMMARY OF THE HOSPITAL COURSE: This is a 55-year-old male. The patient is legally blind, who moved from [place] a year ago and the patient states [...] stent to the right superficial femoral artery, CLINICAL TRANSFORMATION SPECIALIST atherectomy of t he right posterior tibial artery. The patient tolerated the procedure well . After discussing with ID, Dr. Velez, the patient was discharged home on 07/05/2020 with p.o. Keflex for 2 weeks. Dictated By: Nathanael Laureano MD WT: DS:ALEC/THU. Conf#: [id number]/DID#: [id number] Authenticated by Nathanael Laureano MD O n 08/15/2020 05:53:32 PM at 1753 PATIENT NAME: HARJINDER COLUNGA 917 2020-07-11 [id number] [facility] 12:12:00-00:[address] [place] [address] PATIENT NAME: HARJINDER COLUNGA ADMIT DATE: 06/28/20 ACCOUNT NO: [id number] ROOM NO: C.OBS14 AGE: 55 REPORT TYPE: [...] Pedal access, right posterior tibial artery. 5. CLINICAL TRANSFORMATION SPECIALIST atherectomy and stent to the right superf icial femoral artery. 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 This was a difficult portion of the case. Stenting was with a 6 x 200 EverFlex. 6. CLINICAL TRANSFORMATION SPECIALIST atherectomy of the right posterior tibial artery [...] done from the groin sheat h. 9. CLINICAL TRANSFORMATION SPECIALIST of the right external iliac artery with [...] consent, the patient was taken to the dairy and food laboratory assistant and placed supine on the table. [...] I successfully gained access acr oss the GRAVEL WEIGHER. From there, the wire was flossed back [...] ei ther. Prior to removing the sheath, CLINICAL TRANSFORMATION SPECIALIST atherectomy of the left tibioperoneal trunk and [...] Gilbert Ventura III, MD WT: OP:ALEC/[email or web address]/NTS Conf#: [id number]/DID#: [id number] Authenticated by AMRITA Rodriguez. On 07/19 11:40:13 AM Electronically Signed by Gilbert Ventura III, MD o n 07/19/20 at 1140 PATIENT NAME: HARJINDER COLUNGA 917 2020-07-05 [facility] 07:39:00-00:00 [facility] ([facility]) Podiatry Progress Note REPORT#:[id number] REPORT STATUS: Signed DATE:07/05/20 TIME: 738 PATIENT: HARJINDER COLUNGA UNIT #: [id number] ROOM/BED: [address] : [birth year] AGE: 55 SEX: M ATTEND: Arpit Laureano ADM AUTHOR: Patrick Sr DPVasquez R2 * ALL edits or amendments must be made on the [employer] document * General VS/I O: Last Documented: [...] ABIs report monphasic waveforms d istal to KNITTER WIRE MESH, stenosis on RIGHT and similar results on left below popliteal. vascular consulted, agr am results pending. WOund debridement performed at bedside 07/01/20 to beef y red bleeding tissue. No further debridement at this time. Dressed with DSD and aquacel. Pt may follow up with Dr. Marito Ray for out patient wound care. discussed with attending at 0742 RPT #:[id number] END OF REPORT 2020-07-05 [facility] 07:39:00-00:00 [facility] Podiatry Progress Note REPORT#:[id number] REPORT STATUS: Signed DATE:07/05/20 TIME: 07 PATIENT: HARJINDER COLUNGA UNIT #: [id number] ROOM/BED: [address] : [birth year] AGE: 55 SEX: M ATTEND: Arpit Laureano ADM AUTHOR: Patrick Sr DPM R2 * ALL edits or amendments must be made on the el [employer]/computer document * General VS/I O: Last Documented: Result Date Time Pulse Ox 98 07/05 720 B/P 120/76 07/05 720 B/P Mean 90.6 07/05 720 Temp 37.1 07/05 720 Pulse 89 07/05 720 Resp 19 07/05 720 O2 Delivery Room air 03/16 2223 24 hour I O ending at [...] ABIs report monphasic waveforms d istal to KNITTER WIRE MESH, stenosis on RIGHT and similar results on left below popliteal. vascular consulted, agr am results pending. WOund debridement performed at bedside 07/01/20 to beef y red bleeding tissue. No further debridement at this time. Dressed with DSD and aquacel. Pt may follow up with Dr. Marito Ray for out patient wound care. discussed with attending at 0742 at 1135 RPT #:[id number] END OF REPORT 2020-07-04 [facility] 10:47:00-00:00 [facility] ([facility]) Infectious Dis. Progress Note REPORT#:[id number] REPORT STATUS: Signed DATE:07/04/20 TIME: 1047 PATIENT: HARJINDER COLUNGA UNIT #: [id number] ROOM/BED: [address] : 67 AGE: 55 SEX: M ATTEND: Arpit Laureano ADM AUTHOR: Anam Velez MD * ALL edits or amendments must be made on the el [employer]/computer document * Subjective Chief Complaint: 06-30-2020 FEELS [...] DAILY 06/29 0900 AC PO 07/29 09 0845 Nicotine 14 MG DAILY 06/29 09 [...] 2014 AC 06/19 5 SUBQ 07/29 2015 2252 Dextrose/Water 25 [...] PMH uncontrolled D M, peripheral neuropathy, cataracts/blindness, [place] in 2003, and tobacco abuse presented for [...] Velez MD on 0 07/04/20 at 1049 [facility] #:[id number] END OF REPORT 2020-07-04 [facility] 08:03:00-00:00 [facility] ([facility]) Podiatry Progress Note REPORT#:[id number] REPORT STATUS: Signed DATE:07/04/20 TIME: 08 PATIENT: HARJINDER COLUNGA UNIT #: [id number] ROOM/BED: [address] : 67 AGE: 55 SEX: M ATTEND: Divine Laureano ADM AUTHOR: Patrick Sr DPM R2 * ALL edits or amendments must be made on the [employer] document * General VS/I O: Last Documented: [...] ABIs report monphasic waveforms d istal to KNITTER WIRE MESH, stenosis on RIGHT and similar results on left below popliteal. vascular consulted and they will do aortagram this week. WOund debridement performed at bedside 06/19 07/09 to beefy red bleeding tissue. No further debridement at this time. Volodymyr ssed with DSD and aquacel. Pt may follow up with Dr. Marito Ray for out patie nt wound care. discussed with attending at 0808 RPT #:[id number] END OF REPORT 2020-07-04 [facility] 08:03:00-00:00 [facility] Podiatry Progress Note REPORT#:[id number] REPORT STATUS: Signed DATE:07/04/20 TIME: 0803 PATIENT: HARJINDER COLUNGA UNIT #: [id number] ROOM/BED: [address] : 67 AGE: 55 SEX: M ATTEND: GeorgiRejirafael Blandon ADM AUTHOR: Patrick Sr DPVasquez R2 * ALL edits or amendments must be made on the [employer] document * General VS/I O: Last Documented: [...] ABIs report monphasic waveforms d istal to KNITTER WIRE MESH, stenosis on RIGHT and similar results on [...] with attending at 0808 at 1135 RPT #:[id number] END OF REPORT 2020-07-04 [facility] 08:00:00-00:00 [facility] ([facility]) Hospitalist Progress Note REPORT#:[id number] REPORT STATUS: Signed DATE:07/04/20 TIME: 0800 PATIENT: HARJINDER COLUNGA UNIT #: [id number] ROOM/BED: [address] : 67 AGE: 55 SEX: M ATTEND: Arpit Laureano [facility] AUTHOR: Ovidio Hernandez * ALL edits or amendments must be made on the [employer]/computer document * Subjective Chief Complaint: foot pain [...] ot wrapped) Musculoskeletal: decreased ROM (R foot) Neuro/LENS GRINDER ROUGH: alert, oriented X 3 Ulcer: Type/cause: diabetic [...] will continue to follow at 2110 RPT #:[id number] END OF REPORT 2020-07-03 [facility]00 [facility] ([facility]) Hospitalist Progress Note REPORT#:[id number] REPORT STATUS: Signed DATE:07/03/20 TIME: 1702 PATIENT: HARJINDER COLUNGA UNIT #: [id number] ROOM/BED: [address] : 67 AGE: 55 SEX: M ATTEND: Arpit Laureano ADM AUTHOR: Tommy Andres NP * ALL edits or amendments must be made on the [employer] document * Subjective Chief Complaint: Foot pain [...] ot wrapped) Musculoskeletal: decreased ROM (R foot) Neuro/LENS GRINDER ROUGH: alert, oriented X 3 Ulcer: Type/cause: diabetic [...] Andres NP on 0 07/03/20 at 1704 [facility] #:[id number] END OF REPORT 2020-07-03 [facility] 17:02:00-00:00 [facility] ([facility]) Clinical Note REPORT#:[id number] REPORT STATUS: Signed DATE:07/03/20 TIME: 1702 PATIENT: HARJINDER COLUNGA UNIT #: [id number] ROOM/BED: [address] : 67 AGE: 55 SEX: M ATTEND: GeorgiRejirafael Blandon ADM AUTHOR: Tommy Andres [employer] * ALL edits or amendments must be made on the [employer] document * Clinical Note Note: Had a [...] full code. Electronically Signed by Tommy Andres [employer] OUT WORKER on 0 07/03/20 at 1703 RPT #:[id number] END OF REPORT 2020-07-03 [facility] 15:12:00-00:00 [facility] ([facility]) Infectious Dis. Progress Note REPORT#:[id number] REPORT STATUS: Signed DATE:07/03/20 TIME: 1512 PATIENT: HARJINDER COLUNGA UNIT #: [id number] ROOM/BED: [address] : 67 AGE: 55 SEX: M ATTEND: GeorgiArpit thierno Blandon ADM AUTHOR: Anam Velez MD * ALL edits or amendments must be made on the [employer] document * Subjective Chief Complaint: 06-30-2020 FEELS [...] Lipid See Dose ONCE PRN 07/02 1545 AC [employer] (1) IV Sodium Chloride See [...] 06/29 0730 AC 07/02 SUBQ 07/29 0731 1707 Insulin Glargine [...] PMH uncontrolled D M, peripheral neuropathy, cataracts/blindness, [place] in 2003, and tobacco abuse presented for [...] Velez MD on 0 07/03/20 at 1515 [facility] #:[id number] END OF REPORT 2020-07-03 [id number] [facility] 13:11:00-00:00 [address] [facility] [address] [place] [address] PATIENT NAME: HARJINDER COLUNGA ADMIT DATE: 06/28/20 ACCOUNT NO: [id number] ROOM NO: C.OBS14 AGE: 55 REPORT TYPE: [...] Wojciech Delgado MD WT: STRESS:C.CARLENE/JUAN MANUEL/LOTTIE Conf#: [id number]#: [id number] Authenticated by Wojciech Delgado MD On 08/01/2020 08:04:19 AM PATIENT NAME: HARJINDER COLUNGA 917 Electronically Signed by Wojciech Delgado MD on 0 08/01/20 at 0804 PATIENT NAME: HARJINDER COLUNGA 917 2020-07-03 [id number] [facility] 13:09:00-00:00 [address] [facility]. [address] [place] [id number] PATIENT NAME: HARJINDER COLUNGA ADMIT DATE: 06/28/20 ACCOUNT NO: [id number] ROOM NO: .1101 AGE: 55 REPORT TYPE: eECHOCARDIOGRAM REPORT. SEX: M ADMITTING PHYSICIAN:Nathanael Laureano ATTENDING PHYSICIAN:Nathanael Laureano *[facility]* [address] [facility] [address] [id number] Transthoracic Echocardiogram Patient: Harjinder Colunga Study Date: 07/03/2020 BP: 124 / 76 Location: [facility] URN: [id number] 0917 : 1965 Age: 55 Height: 67 in / 170.2 cm Gender: M Weight: 179 .6 lb / 81.6 kg BMI/BSA: 28.2 kg/m 2 / 1.98 m 2 *Ordering Physician: Ramu Lujan *Interpreting Physician: * Wojciech Delgado MD *Aviation Maintenance Instructor: Zoe Reardon Indications: Pre-operative Cardiovascular Evalua tion. Study data: Transthoracic echocardiogram. Proced ure: Transthoracic echocardiography was performed. Images were obta ined using a [employer] E95-1 cardiac ultrasound machine. Complete 2D, complet [...] 1309 PATIENT NAME: HARJINDER COLUNGA 917 2020-07-03 [facility] 12:28:00-00:00 [facility] Cardiology Progress Note REPORT#:[id number] REPORT STATUS: Signed DATE:07/03/20 TIME: 1228 PATIENT: HARJINDER COLUNGA UNIT #: [id number] ROOM/BED: [address] : 67 AGE: 55 SEX: M ATTEND: Divine Laureano [facility] AUTHOR: Wojciech Delgado MD * ALL edits or amendments must be made on the [employer] document * Subjective Chief Complaint: Seen and [...] % (Auto) (20.5 - 45.5 %) 22.3 Power % (Auto) (5.5 - 11.7 %) 9.6 Eos % (Auto) (0.9 - 2.9 %) 2.1 Baso % (Auto) (0.2 - 1.0 %) 0.9 Neut # (Auto) (2.2 - 4.8 x10 3/uL) 3.63 Lymph # (Auto) (1.3 - 2.9 x10 3/uL) 1.25 L Power # (Auto) (0.3 - 0.8 x10 3/uL) [...] 55 year old man with CAD s/p NJ (did not present to [facility] for follow-up PCI), DM, smoker presenting fo r foot wounds, podiatry evaluating for further debridement. Cardiology consulted for pre-operative evaluatio n. 1. preoperative evaluation -intermediate risk - f/u TTE and Lexiscan nuclear stress today give n past NJ and inability to exercise 2. DM Monitor blood sugar 3. Foot wounds negative for osteomyelitis on MRI Management per ID and podiatry 4. PVD Aortogram per vascular Monitor lower extremities. Electronically Signed by Wojciech Delgado MD on at 1231 RPT #:[id number] END OF REPORT 2020-07-03 [facility] 12:28:00-00:00 [facility] ([facility]) Cardiology Progress Note REPORT#:[id number] REPORT STATUS: Signed DATE:07/03/20 TIME: 1228 PATIENT: HARJINDER COLUNGA UNIT #: [id number] ROOM/BED: [address] : 67 AGE: 55 SEX: M ATTEND: Arpit Laureano ADM AUTHOR: Wojciech Delgado MD * ALL edits or amendments must be made on the [employer] document * See Addendum Subjective Chief Complaint: [...] % (Auto) (20.5 - 45.5 %) 22.3 Power % (Auto) (5.5 - 11.7 %) 9.6 Eos % (Auto) (0.9 - 2.9 %) 2.1 Baso % (Auto) (0.2 - 1.0 %) 0.9 Neut # (Auto) (2.2 - 4.8 x10 3/uL) 3.63 Lymph # (Auto) (1.3 - 2.9 x10 3/uL) 1.25 L Power # (Auto) (0.3 - 0.8 x10 3/uL) [...] 55 year old man with CAD s/p NJ (did not present to [facility] for follow-up PCI), DM, smoker presenting fo r foot wounds, podiatry evaluating for further debridement. Cardiology consulted for pre-operative evaluatio n. 1. preoperative evaluation -intermediate risk - f/u TTE and Lexiscan nuclear stress today give n past [place] and inability to exercise 2. DM Monitor [...] Wojciech Delgado MD on at 1319 RPT #:[id number] END OF REPORT 2020-07-03 [facility] 07:59:00-00:00 [facility] ([facility]) Podiatry Progress Note REPORT#:[id number] REPORT STATUS: Signed DATE:07/03/20 TIME: 758 PATIENT: HARJINDER COLUNGA UNIT #: [id number] ROOM/BED: [address] : 67 AGE: 55 SEX: M ATTEND: Arpit Laureano ADM AUTHOR: Patrick Sr DPVasquez R2 * ALL edits or amendments must be made on the el [employer]/computer document * General VS/I O: Last Documented: [...] ABIs report monphasic waveforms d istal to KNITTER WIRE MESH, stenosis on RIGHT and similar results on left below popliteal. vascular consulted and they will do aortagram next week. WOund debridement performed at bedside 06/19 07/09 to beefy red bleeding tissue. No further debridement at this time. Voldoymyr ssed with DSD and aquacel. discussed with attending at 0804 RPT #:[id number] END OF REPORT 2020-07-03 [facility] 07:59:00-00:00 [facility] Podiatry Progress Note REPORT#:[id number] REPORT STATUS: Signed DATE:07/03/20 TIME: 075 PATIENT: HARJINDER COLUNGA UNIT #: [id number] ROOM/BED: [address] : 67 AGE: 55 SEX: M ATTEND: Arpit Laureano ADM AUTHOR: Patrick Sr DPM R2 * ALL edits or amendments must be made on the [employer] document * General VS/I O: Last Documented: [...] ABIs report monphasic waveforms d istal to KNITTER WIRE MESH, stenosis on RIGHT and similar results on left below popliteal. vascular consulted and they will do aortagram next week. WOund debridement performed at bedside 06/19 07/09 to beefy red bleeding tissue. No further debridement at this time. Volodymyr ssed with DSD and aquacel. discussed with attending at 0804 at 1135 RPT #:[id number] END OF REPORT 2020-07-02 [facility]00 [facility] ([facility]) Int. Cardiology Consult Note REPORT#:[id number] REPORT STATUS: Signed DATE:07/02/20 TIME: 1640 PATIENT: HARJINDER COLUNGA UNIT #: [id number] ROOM/BED: [address] : 67 AGE: 55 SEX: M ATTEND: Arpit Laureano ADM AUTHOR: Ramu Araujo MD * ALL edits or amendments must be made on the [employer] document * History of Present Illness History of Present Illness Requesting clinician: Georgi Reason for consult: Pre-operative assessment Chief complaint: Foot wounds HPI: 55-year-old man, legally blind, DM, CAD with untreated [place] in 2003 (patient did not follow-up to [...] MG/DL LAST PM ). Additional medical history: [place] in 2003 Additional surgical history: None Family [...] Result Date Time Pulse Ox 97 07/02 151 B/P 117/68 07/02 151 B/P Mean 84.3 07/02 151 O2 Delivery Room air 07/03 1515 Temp [...] soft, non-tender Musculoskeletal: full range of motion Neuro/LENS GRINDER ROUGH: alert, oriented X 3 Skin: foot wounds [...] 55 year old man with CAD s/p [place] (did not present to [facility] for follow-up PCI), DM, smoker presenting fo r foot wounds, podiatry evaluating for further debridement. Cardiology consulted for pre-operative evaluatio n. 1. preoperative evaluation -TTE -nuclear stress given past NJ and inability to e xercise 2. DM Monitor blood sugar 3. Foot wounds negative for osteomyelitis on MRI Management per ID and podiatry 4. PVD Aortogram per vascular Monitor lower extremities. at 1648 RPT #:[id number] END OF REPORT 2020-07-02 [facility] 15:12:00-00:00 [facility] Progress Note REPORT#:[id number] REPORT STATUS: Signed DATE:07/02/20 TIME: 1512 PATIENT: HARJINDER COLUNGA UNIT #: [id number] [address] AGE: 55 SEX: M ATTEND: Arpit Laureano AUTHOR: Nathanael Laureano ta * ALL edits or amendments must be made on the [employer] document * Subjective Chief Complaint: Pain over [...] 97.7 73 14 102/66 78.3 96 07/02 000 97.9 69 16 95/58 70.1 95 07/01 1916 98.1 77 16 118/75 89.1 99 Current Medications Sig/Bita Start time Last Medication Dose Route Stop Time Status Admin Cephalexin 500 MG Q6HR 07/01 1200 AC 07/02 PO 07/06 1159 1233 Losartan Potassium 50 MG DAILY 06/29 899 AC PO 07/29 09 0912 Nicotine 14 MG DAILY 06/29 09 AC 07/02 TRANSDERM 07/29 09 09 Insulin Human Lispro 5 UNITS AC 06/29 0730 AC 0 07/02 SUBQ 07/29 0731 123 Insulin Glargine 15 UNITS BEDTIME 06/28 2100 AC 07/01 SUBQ 07/28 2101 2039 Clonidine HCl 0.1 MG Q6H PRN PRN 06/28 2014 AC 06/29 PO 07/29 2015 174 Enoxaparin Sodium 40 MG Q24H 06/28 2014 AC 06/19 3 SUBQ 07/28 2016 2038 Dextrose/Water 25 ML ASDIR PRN 06/28 1914 [...] 0749 97.7 75 18 125/81 95.6 96 07/025 97.7 73 14 102/66 78.3 96 07/02 [...] of care Pain control at 2240 RPT #:[id number] END OF REPORT 2020-07-02 [facility] 11:55:00-00:00 [facility]) Vascular Surgery Progress Note REPORT#:[id number] REPORT STATUS: Signed DATE:07/02/20 TIME: 1155 PATIENT: HARJINDER COLUNGA UNIT #: [id number] ROOM/BED: [address] : 67 AGE: 55 SEX: M ATTEND: Arpit Laureano ADM AUTHOR: Enrrique Zuñiga MD R2 * ALL edits or amendments must be made on the [employer] document * Subjective Comments: Patient reports unchanged co mplaints of R foot wound. No acute overnight events reported. Review of Systems All systems rev neg: except as marked Objective General VS/I O Last Documented: Result Date Time Pulse Ox 98 07/02 1109 B/P 119/74 07/02 1109 B/P Mean 89.1 07/02 1109 O2 Delivery Room air 07/02 110 Temp 36.8 07/02 110 Pulse 76 07/02 1109 Resp 18 07/02 [...] Do ppler study -: R posterior tibialis Neuro/LENS GRINDER ROUGH: alert, oriented X 3, normal speech Skin: [...] uncontr olled DM, peripheral neuropathy, cataracts/blindness , [place] in 2003, and tobacco abuse presented with [...] MD R2 on 07/02 at 1202 RPT #:[id number] END OF REPORT 2020-07-02 [facility] 11:55:00-00:00 [facility] ([facility]) Vascular Surgery Progress Note REPORT#:[id number] REPORT STATUS: Signed DATE:07/02/20 TIME: 1155 PATIENT: HAJRINDER COLUNGA UNIT #: [id number] ROOM/BED: [address] : [birth year] AGE: 55 SEX: M ATTEND: Arpit Laureano [facility] AUTHOR: Enrrique Zuñiga MD R2 * ALL edits or amendments must be made on the [employer] document * Enrrique Zuñiga 07/02/20 1155: Subjective [...] Do ppler study -: R posterior tibialis Neuro/LENS GRINDER ROUGH: alert, oriented X 3, normal speech Skin: [...] uncontr olled DM, peripheral neuropathy, cataracts/blindness , [place] in 2003, and tobacco abuse presented with [...] MD R2 on 07/02 at 1202 RPT #:[id number] END OF REPORT 2020-07-02 [facility] 11:55:00-00:00 [facility]) Vascular Surgery Progress Note REPORT#:[id number] REPORT STATUS: Signed DATE:07/02/20 TIME: 1155 PATIENT: HARJINDER COLUNGA UNIT #: [id number] ROOM/BED: [address] : 67 AGE: 55 SEX: M ATTEND: Arpit Laureano ADM AUTHOR: Enrrique Zuñiga MD R2 * ALL edits or amendments must be made on the [employer] document * Enrrique Zuñiga 07/02/20 1155: Subjective [...] Pulse 76 07/02 1109 Resp 18 07/02 110 PATIENT WEIGHT: Weight (lb): 180 Weight (oz): [...] Do ppler study -: R posterior tibialis Neuro/LENS GRINDER ROUGH: alert, oriented X 3, normal speech Skin: [...] uncontr olled DM, peripheral neuropathy, cataracts/blindness , [place] in 2003, and tobacco abuse presented with [...] on 07/02 at 1202 at 1024 RPT #:[id number] END OF REPORT 2020-07-02 [facility] 09:49:00-00:00 [facility] ([facility]) Infectious Dis. Progress Note REPORT#:[id number] REPORT STATUS: Signed DATE:07/02/20 TIME: 948 PATIENT: HARJINDER COLUNGA UNIT #: [id number] ROOM/BED: [address] : 67 AGE: 55 SEX: M ATTEND: Arpit Laureano ADM AUTHOR: Anam Velez MD * ALL edits or amendments must be made on the el [employer]computer document * Subjective Chief Complaint: 06-30-2020 FEELS [...] 0901 0912 Nicotine 14 MG DAILY 06/29 09 AC 07/02 TRANSDERM 04/10 0901 0912 Insulin Human Lispro 5 UNITS AC 06/29 0730 AC 0 07/02 SUBQ 07/29 0731 0912 Insulin Glargine 15 UNITS BEDTIME 06/28 2100 AC 07/01 SUBQ 07/28 Linezolid 600 MG Q12HR 06/28 2100 DC 07/01 PO 07/12 2058 09 Cefepime HCl 1 GM Q8H 06/28 2030 [...] PMH uncontrolled D M, peripheral neuropathy, cataracts/blindness, [place] in 2003, and tobacco abuse presented for [...] MD on 0 07/02/20 at 0951 RPT #:[id number] END OF REPORT 2020-07-02 [facility] 07:54:00-00:00 [facility] ([facility]) Podiatry Progress Note REPORT#:[id number] REPORT STATUS: Signed DATE:07/02/20 TIME: 753 PATIENT: HARJINDER COLUNGA UNIT #: [id number] ROOM/BED: [address] : 67 AGE: 55 SEX: M ATTEND: Arpit Laureano ADM AUTHOR: Patrick Sr DPM R2 * ALL edits or amendments must be made on the [employer] document * General VS/I O: Last Documented: [...] ABIs report monphasic waveforms d istal to KNITTER WIRE MESH, stenosis on RIGHT and similar results on left below popliteal. vascular consulted and they will do aortagram next week. WOund debridement performed at bedside 06/19 07/09 to beefy red bleeding tissue. Additional, deeper debridement needed in OR later this week. Dressed with DSD and betadine discussed with attending at 0801 RPT #:[id number] END OF REPORT 2020-07-02 [facility] 07:54:00-00:00 [facility] Podiatry Progress Note REPORT#:[id number] REPORT STATUS: Signed DATE:07/02/20 TIME: 0754 PATIENT: HARJINEDR COLUNGA UNIT #: [id number] ROOM/BED: [address] : 67 AGE: 55 SEX: M ATTEND: Arpit Laureano ADM AUTHOR: Patrick Sr DPM R2 * ALL edits or amendments must be made on the [employer] document * General VS/I O: Last Documented: [...] ABIs report monphasic waveforms d istal to KNITTER WIRE MESH, stenosis on RIGHT and similar results on left below popliteal. vascular consulted and they will do aortagram next week. WOund debridement performed at bedside 06/19 07/09 to beefy red bleeding tissue. Additional, deeper debridement needed in OR later this week. Dressed with DSD and betadine discussed with attending at 0801 at 1135 RPT #:[id number] END OF REPORT 2020-07-01 [facility] 19:59:00-00:00 [facility] ([facility]) Vascular Surgery Consult Note REPORT#:[id number] REPORT STATUS: Signed DATE:07/01/20 TIME: 1958 PATIENT: HARJINDER COLUNGA UNIT #: [id number] ROOM/BED: [address] : 67 AGE: 55 SEX: M ATTEND: Arpit Laureano ADM AUTHOR: Eliot Vale MD R1 * ALL edits or amendments must be made on the [employer] document * History of Present Illness Requesting Clinician: Patrick Sr MD Reason for consult: PAD , nonhealing ulcers Chief complaint: nonhealing ulcers, LLE claudication HPI: 55 year old with PMH uncontr olled DM, peripheral neuropathy, cataracts/blindness , [place] in 2003, and tobacco ab use presented [...] MG/DL LAST PM ). Additional medical history: [place] in 2003 Additional surgical history: None Drug [...] Do ppler study -: R posterior tibialis. Neuro/LENS GRINDER ROUGH: alert, oriented X 3 Skin: dry, normal [...] uncontr olled DM, peripheral neuropathy, cataracts/blindness , [place] in 2003, and tobacco abuse presented with f or foot ulcers and PAD AFVSS b/l foot ulcers worse on lef t side but pain and claudication worse on the right side. labs an imaging reviewed plan: will discuss with attending plans for artogram n ext week continue medical managment podiatry and infectious disease onboard. at 2013 RPT #:[id number] END OF REPORT 2020-07-01 [facility] 19:59:00-00:00 [facility]) Vascular Surgery Consult Note REPORT#:[id number] REPORT STATUS: Signed DATE:07/01/20 TIME: 1958 PATIENT: HARJINDER COLUNGA UNIT #: [id number] [facility]OM[facility]BED: [facility] : 67 AGE: 55 SEX: M ATTEND: [...] uncontr olled DM, peripheral neuropathy, cataracts/blindness , [place] in 2003, and tobacco ab use presented [...] MG/DL LAST PM ). Additional medical history: [place] in 2003 Additional surgical history: None Drug [...] Do ppler study -: R posterior tibialis. Neuro/LENS GRINDER ROUGH: alert, oriented X 3 Skin: dry, normal [...] uncontr olled DM, peripheral neuropathy, cataracts/blindness , [place] in 2003, and tobacco abuse presented with f or foot ulcers and PAD AFVSS b/l foot ulcers worse on lef t side but pain and claudication worse on the right side. labs an imaging reviewed plan: will discuss with attending plans for artogram n ext week continue medical managment podiatry and infectious disease onboard. Gilbert VenturaTish 07/14/20 0959: Diagnosis, Assessment Plan Free Text A P: patient seen and examined. Agree with above. int ervention planned. appreciate consult. at 2013 RPT #:[id number] END OF REPORT 2020-07-01 [facility] 19:59:00-00:00 [facility] ([facility]) Vascular Surgery Consult Note REPORT#:[id number] REPORT STATUS: Signed DATE:07/01/20 TIME: 1958 PATIENT: HARJINDER COLUNGA UNIT #: [id number] ROOM/BED: [address] : [birth year] AGE: 55 SEX: M ATTEND: Arpit Laureano ADM AUTHOR: Eliot Vale MD R1 * ALL edits or amendments must be made on the [employer] document * Eliot Vale 07/01/201958: History of Present Illness Requesting Clinician: Patrick Sr MD Reason for consult: PAD , nonhealing ulcers Chief complaint: nonhealing ulcers, LLE claudication HPI: 55 year old with PMH uncontr olled DM, peripheral neuropathy, cataracts/blindness , [place] in 2003, and tobacco ab use presented [...] MG/DL LAST PM ). Additional medical history: [place] in 2003 Additional surgical history: None Drug [...] Do ppler study -: R posterior tibialis. Neuro/LENS GRINDER ROUGH: alert, oriented X 3 Skin: dry, normal [...] uncontr olled DM, peripheral neuropathy, cataracts/blindness , [place] in 2004, and tobacco abuse presented with f or [...] ervention planned. appreciate consult. at 2014 at [facility] RPT #:[id number] END OF REPORT 2020-07-01 [facility] 17:50:00-00:00 [facility] Progress Note REPORT#:[id number] REPORT STATUS: Signed DATE:07/01/20 TIME: 1750 PATIENT: HARJINDER COLUNGA UNIT #: [id number] [address] AGE: 55 SEX: M ATTEND: Divine Laureano ADM AUTHOR: Nathanael Laureano * ALL edits or amendments must be made on the el [employer]/computer document * Subjective Chief Complaint: Pain over [...] 1408 Losartan Potassium 50 MG DAILY 06/29 09 AC PO 07/29 0901 0901 Nicotine 14 [...] of care Pain control at 2023 RPT #:[id number] END OF REPORT 2020-07-01 [facility] 11:04:00-00:00 [facility] ([facility]) Infectious Dis. Progress Note REPORT#:[id number] REPORT STATUS: Signed DATE:07/01/20 TIME: 1103 PATIENT: HARJINDER COLUNGA UNIT #: [id number] ROOM/BED: [facility]-A : 67 AGE: 55 SEX: M ATTEND: Arpit Laureano [facility] AUTHOR: Anam Velez MD * ALL edits or amendments must be made on the el [employer]/computer document * Subjective Chief Complaint: 3-12-2021 FEELS FINE PODIATRY NOTED CX + STREPTOCOCCI [...] 900 0901 Nicotine 14 MG DAILY 06/29 09 AC 07/01 TRANSDERM 07/29 900 0902 Insulin Human Lispro 5 UNITS AC 06/29 0630 AC 0 06/30 SUBQ 07/29 0631 184 Insulin Glargine 15 UNITS BEDTIME 06/28 2100 AC 06/30 SUBQ 07/28 Linezolid 600 MG Q12HR 06/28 2099 AC 07/01 PO 07/12 2058 0901 Cefepime HCl 1 GM Q8H 06/28 2029 AC 07/01 Sterile Water 10 ML IV 07/12 2028 0414 Clonidine HCl 0.1 MG Q6H PRN PRN 06/28 2014 AC 06/29 PO 07/29 2015 174 Enoxaparin Sodium 40 MG Q24H 06/28 2014 AC 06/19 2 SUBQ 07/28 2016 203 Dextrose/Water 25 ML [...] PMH uncontrolled D M, peripheral neuropathy, cataracts/blindness, [place] in 2003, and tobacco abuse presented for [...] MD on 0 07/01/20 at 1107 RPT #:[id number] END OF REPORT 2020-07-01 [facility] 09:46:00-00:00 [facility]) Podiatry Progress Note REPORT#:[id number] REPORT STATUS: Signed DATE:07/01/20 TIME: 945 PATIENT: HARJINDER COLUNGA UNIT #: [id number] ROOM/BED: [address] : 67 AGE: 55 SEX: M ATTEND: Arpit Laureano [facility] AUTHOR: Patrick Sr DPM R2 * ALL edits or amendments must be made on the el [employer]/computer document * General VS/I O: Last Documented: [...] ABIs report monphasic waveforms d istal to KNITTER WIRE MESH, stenosis on RIGHT and similar results on left below popliteal. vascular consul yana. WOund debridement performed to beefy red bleeding tissue. Dressed with aq uacell and DSD. Procedure 07/01/20 Pre-op dx: peter foot diabetic wounds Post op dx: same Procedure: wound debridement of peter feet location: bedside Surgeon: Dr. Marito Ray Steel Handler: Dr. Patrick Sr Complications: none EBL: < [...] peter. discussed with attending at 1008 RPT #:[id number] END OF REPORT 2020-07-01 [facility] 09:46:00-00:00 [facility] ([facility]) Podiatry Progress Note REPORT#:[id number] REPORT STATUS: Signed DATE:07/01/20 TIME: 0946 PATIENT: HARJINDER COLUNGA UNIT #: [id number] ROOM/BED: [address] : 67 AGE: 55 SEX: M ATTEND: Arpit Laureano [facility] AUTHOR: Patrick Sr DPM R2 * ALL edits or amendments must be made on the el [employer]/computer document * General VS/I O: Last Documented: [...] ABIs report monphasic waveforms d istal to KNITTER WIRE MESH, stenosis on RIGHT and similar results on left below popliteal. vascular consul yana. WOund debridement performed to beefy red bleeding tissue. Dressed with aq uacell and DSD. Procedure 07/01/20 Pre-op dx: peter foot diabetic wounds Post op dx: same Procedure: wound debridement of peter feet location: bedside Surgeon: Dr. Marito Ray Steel Handler: Dr. Patrick Sr Complications: none EBL: < [...] with attending at 1008 at 1135 RPT #:[id number] END OF REPORT 2020-06-30 [facility] 22:00:00-00:00 [facility] Progress Note REPORT#:[id number] REPORT STATUS: Signed DATE:06/30/20 TIME: 2199 PATIENT: HARJINDER COLUNGA UNIT #: [id number] ROOM/BED: [address] : 67 AGE: 55 SEX: M ATTEND: Arpit Laureano [facility] AUTHOR: Nathanael Laureano * ALL edits or amendments must be made on the el [employer]/computer document * Subjective Chief Complaint: Pain over [...] DAILY 06/29 899 AC 06/30 TRANSDERM 07/29 09 1023 Insulin Human Lispro 5 UNITS AC [...] of care Pain control at 1504 RPT #:[id number] END OF REPORT 2020-06-30 [facility] ([facility]) Infectious Dis. Progress Note REPORT#:[id number] REPORT STATUS: Signed DATE:06/30/20 TIME: 180 PATIENT: HARJINDER COLUNGA UNIT #: [id number] ROOM/BED: [address] : 67 AGE: 55 SEX: M [...] Admin Losartan Potassium 50 MG DAILY 06/29 09 AC PO 07/29 0901 1019 Nicotine 14 MG DAILY 06/29 09 AC 06/30 TRANSDERM 07/29 0901 1023 Insulin Human Lispro 5 UNITS AC 06/29 0730 AC 0 06/30 SUBQ 07/29 0731 1320 Insulin Glargine 15 UNITS BEDTIME 06/28 2100 A C 06/29 SUBQ 07/28 2101 2106 Linezolid 600 MG Q12HR 06/28 2100 AC 06/30 PO 07/12 2058 1019 Cefepime HCl 1 GM Q8H 06/28 [...] PMH uncontrolled D M, peripheral neuropathy, cataracts/blindness, [place] in 2003, and tobacco abuse presented for [...] MD on 0 06/30/20 at 1804 RPT #:[id number] END OF REPORT 2020-06-30 [facility] 08:46:00-00:00 [facility] ([facility]) Podiatry Progress Note REPORT#:[id number] REPORT STATUS: Signed DATE:06/30/20 TIME: 08 PATIENT: HARJINDER COLUNGA UNIT #: [id number] ROOM/BED: [address] : 67 AGE: 55 SEX: M ATTEND: Arpit Laureano [facility] AUTHOR: Patrick Sr DPM R2 * ALL edits or amendments must be made on the [employer]/computer document * General VS/I O: Last Documented: [...] Betadi ne wet-to-dry. discussed with attending at 0849 at 3030 [facility] #:[id number] END OF REPORT 2020-06-30 [facility] 08:46:00-00:00 [facility]) Podiatry Progress Note REPORT#:[id number] REPORT STATUS: Signed DATE:06/30/20 TIME: 0846 PATIENT: HARJINDER COLUNGA UNIT #: [id number] ROOM/BED: 1101-A : 69 AGE: 55 SEX: M ATTEND: Arpit Laureano ADM AUTHOR: Patrick Sr DPVasquez R2 * ALL edits or amendments must be made on the [employer]/computer document * General VS/I O: Last Documented: [...] wet-to-dry. discussed with attending at 0853 RPT #:[id number] END OF REPORT 2020-06-29 [facility] 23:21:00-00:00 [facility] Medicine Progress Note REPORT#:[id number] REPORT STATUS: Signed DATE:06/29/20 TIME: 2320 PATIENT: HARJINDER COLUNGA UNIT #: [id number] ROOM/BED: [address] : 67 AGE: 55 SEX: M ATTEND: Divine Laureano ADM AUTHOR: Nathanael Laureano * ALL edits or amendments must be made on the [employer]/computer document * Subjective Chief Complaint: Pain over [...] % (Auto) (20.5 - 45.5 %) 24.1 Power % (Auto) (5.5 - 11.7 %) 7.7 Eos % (Auto) (0.9 - 2.9 %) 1.5 Baso % (Auto) (0.2 - 1.0 %) 0.5 Neut # (Auto) (2.2 - 4.8 x10 3/uL) 4.30 Lymph # (Auto) (1.3 - 2.9 x10 3/uL) 1.57 Power # (Auto) (0.3 - 0.8 x10 3/uL) [...] of care Pain control at 1942 RPT #:[id number] END OF REPORT 2020-06-29 [facility] 09:35:00-00:00 [facility] ([facility]) Infect Disease Consult Note REPORT#:[id number] REPORT STATUS: Signed DATE:06/29/20 TIME: 934 PATIENT: HARJINDER COLUNGA UNIT #: [id number] ROOM/BED: [address] : 67 AGE: 55 SEX: M ATTEND: Arpit Laureano ADM AUTHOR: Harjinder Garner MD R1 * ALL edits or amendments must be made on the el [employer]/computer document * History of Present Illness HPI: [id number] w/ PMH uncontrolled D M, peripheral neuropathy, cataracts/blindness, [place] in 2003, and tobacco abuse presented for [...] MG/DL LAST PM ). Additional medical history: [place] in 2003 Additional surgical history: None Drug [...] B/P 142/88 06/29 728 B/P Mean 105.8 03/11 0729 Temp 98.6 06/29 0729 Pulse 75 06/29 0729 Resp 16 06/29 0729 O2 Delivery Room air 06/28 1458 Vital [...] to the BL leg above the ankle. Neuro/LENS GRINDER ROUGH: alert, oriented X 3 Results Findings/Data: Laboratory [...] (20.5 - 45.5 %) 24.1 17.3 L Power % (Auto) (5.5 - 11.7 %) 7.7 6.0 Eos % (Auto) (0.9 - 2.9 %) 1.5 0.9 Baso % (Auto) (0.2 - 1.0 %) 0.5 0.7 Neut # (Auto) (2.2 - 4.8 x10 3/uL) 4.30 5.68 H Lymph # (Auto) (1.3 - 2.9 x10 3/uL) 1.57 1.32 Power # (Auto) (0.3 - 0.8 x10 3/uL) [...] pH (5.0 - 8.0) 5.0 Ur Specific [place] (<1.030) 1.029 Urine Protein (Negative mg/dL) 30 [...] PMH uncontrolled D M, peripheral neuropathy, cataracts/blindness, [place] in 2003, and tobacco abuse presented for [...] control with patient who verbalized jevon g. Attestations Attestation needed: teaching physician at 1003 RPT #:[id number] END OF REPORT 2020-06-29 [facility] 09:35:00-00:00 [facility] ([facility]) Infect Disease Consult Note REPORT#:[id number] REPORT STATUS: Signed DATE:06/29/20 TIME: 934 PATIENT: HARJINDER COLUNGA UNIT #: [id number] ROOM/BED: [address] : 67 AGE: 55 SEX: M ATTEND: Divine Laureano ADM AUTHOR: Harjinder Garner MD R1 * ALL edits or amendments must be made on the [employer]/computer document * PascualHarjinder 06/29/20 0935: History of Present Illness HPI: 55yoWM w/ PMH uncontrolled D M, peripheral neuropathy, cataracts/blindness, [place] in 2003, and tobacco abuse presented for [...] MG/DL LAST PM ). Additional medical history: [place] in 2003 Additional surgical history: None Drug [...] to the BL leg above the ankle. Neuro/LENS GRINDER ROUGH: alert, oriented X 3 Results Findings/Data: Laboratory [...] (20.5 - 45.5 %) 24.1 17.3 L Power % (Auto) (5.5 - 11.7 %) 7.7 6.0 Eos % (Auto) (0.9 - 2.9 %) 1.5 0.9 Baso % (Auto) (0.2 - 1.0 %) 0.5 0.7 Neut # (Auto) (2.2 - 4.8 x10 3/uL) 4.30 5.68 H Lymph # (Auto) (1.3 - 2.9 x10 3/uL) 1.57 1.32 Power # (Auto) (0.3 - 0.8 x10 3/uL) [...] pH (5.0 - 8.0) 5.0 Ur Specific [place] (<1.030) 1.029 Urine Protein (Negative mg/dL) 30 [...] Epith Cells (0 - 5 (RARE) /HPF) 0- 5 (RARE) Urine Bacteria (None - Rare /HPF) [...] PMH uncontrolled D M, peripheral neuropathy, cataracts/blindness, [place] in 2003, and tobacco abuse presented for [...] MD on 0 06/29/20 at 1505 RPT #:[id number] END OF REPORT 2020-06-29 [facility] 07:33:00-00:00 [facility] ([facility]) Podiatry Progress Note REPORT#:[id number] REPORT STATUS: Signed DATE:06/29/20 TIME: 732 PATIENT: HARJINDER COLUNGA UNIT #: [id number] ROOM/BED: [address] : 67 AGE: 55 SEX: M ATTEND: Arpit Laureano ADM AUTHOR: Patrick Sr DPM R2 * ALL edits or amendments must be made on the [employer] document * General VS/I O: Last Documented: [...] with attending at 0738 at 1135 RPT #:[id number] END OF REPORT 2020-06-29 [facility] 07:33:00-00:00 [facility]) Podiatry Progress Note REPORT#:[id number] REPORT STATUS: Signed DATE:06/29/20 TIME: 732 PATIENT: HARJINDER COLUNGA UNIT #: [id number] ROOM/BED: [address] : 67 AGE: 55 SEX: M ATTEND: Arpit Laureano [facility] AUTHOR: Patrick Sr DPM R2 * ALL edits or amendments must be made on the [employer] document * General VS/I O: Last Documented: Result Date Time Pulse Ox 97 06/29 728 B/P 142/88 06/29 728 B/P Mean 105.8 06/29 07 Temp 37.0 06/29 07 Pulse 75 06/29 0729 Resp 16 06/29 [...] Betadine wet-to-dry. discussed with attending at 0738 [facility] #:[id number] END OF REPORT 2020-06-28 [id number] [facility] 20:01:00-00:00 [address] [facility] [place] [address] PATIENT NAME: HARJINDER COLUNGA ADMIT DATE: 06/28/20 ACCOUNT NO: [id number] ROOM NO: C.1101 AGE: 55 REPORT TYPE: HISTORY AND PHYSICAL SEX: M ADMITTING PHYSICIAN:Nathanael Laureano ATTENDING PHYSICIAN:Nathanael Laureano ADMISSION DATE: 06/28/2020 CHIEF COMPLAINT: The patient was brought in with wound over the left foot. HISTORY OF PRESENT ILLNESS: This is a 55 -year-old male. The patient is legally blind, who moved from [facility] a year ago and patient states he [...] By: Nathanael Laureano MD WT: HP:ALEC/THU./NTS Conf#: [id number]#: [id number] Authenticated by Nathanael Laureano MD O n 06/29/2020 09:55:13 PM at 2155 PATIENT NAME: HARJINDER COLUNGA 917 2020-06-28 [facility] 18:47:00-00:00 [facility] ([facility]) History Physical - Adult REPORT#:[id number] REPORT STATUS: Signed DATE:06/28/20 TIME: 1846 PATIENT: HARJINDER COLUNGA UNIT #: [id number] [facility]ED[facility] : 67 AGE: 55 SEX: M ATTEND: Arpit Laureano ADM AUTHOR: Nathanael Laureano * ALL edits or amendments must be made on the [employer]/computer document * History Past medical history: Reports: Diabetes mellitus (BS 168 MG/DL LAST PM ). Additional medical history: [place] in 2003 Additional surgical history: None Drug use: Denies recreational drugs Smoking status: Smoking status for patients 13 years old or old er: Current every day smoker Other social history: Hx of substance and alcoho l abuse Medication/Allergy-Vaccine Hx Allergies: Coded Allergies: No Known Allergies (10/08/19) at 1937 RPT #:[id number] END OF REPORT 2020-06-28 [id number] [facility] [place] [address] PATIENT NAME: HARJINDER COLUNGA ADMIT DATE: 06/28/20 ACCOUNT NO: [id number] ROOM NO: [facility] AGE: 55 REPORT TYPE: CONSULTATION SEX: [...] Atraumatic and normocephalic. PATIENT NAME: HARJINDER COLUNGA 0917 EYES: EOMI, PERRL. NOSE, MOUTH: Moist mucosal [...] for Marito Ray DPM WT: CON:CHOLLY/JOSELIN/LOTTIE Conf#: [id number]#: [id number] PATIENT NAME: HARJINDER COLUNGA 917 Authenticated by Patrick Sr DPM On 06/19 07:09:44 AM Authenticated by Marito Ray DPM On 07/05/2020 11:31:10 AM at 1131 at 1131 PATIENT NAME: HARJINDER COLUNGA 0917 2020-06-28 [facility] 16:47:00-00:00 [facility] ([facility]) EMERGENCY PROVIDER REPORT REPORT#:[id number] REPORT STATUS: Signed DATE:06/28/20 TIME: 1646 PATIENT: HARJINDER COLUNGA UNIT #: [id number] ROOM/BED: C.1101-A AGE: 55 SEX: M PCP PHYS: No Primary or Family Ph ysician SERVICE AUTHOR: Giovany Landa MD R1 * ALL edits or amendments must be made on the [employer] document * Giovany Landa V 06/28/201646: HPI-General [...] are a. General Initial Greet Date/Time 06/28/20 4567 Presentation Chief Complaint Diabetic foot wound Hx [...] MG/DL LAST PM ). Additional Medical History [place] in 2003 Additional Surgical History None Drug [...] L foot ulcer on ball of foot [id number] wit h scattered ulcer throughout the foot. [...] Consultation Consultation Referral/Consult Name Obed Lopez DPM Disabilities Services Officer Called Podiatry Requested Call Time 165 Requested Call Date 06/28/20 Call Returned Call returned Call Returned Time 1656 Call Returned Date 06/28/20 Disabilities Services Officer Will see patient Patient Discharge Departure Disposition Decision Admit Admit Physician Name Nathanael Laureano Barber Willie Dolaneed 06/28/20 1716: Physical Exam Vital Signs Vital [...] (Auto) (20.5 - 45.5 %) 17.3 L Power % (Auto) (5.5 - 11.7 %) 6.0 Eos % (Auto) (0.9 - 2.9 %) 0.9 Baso % (Auto) (0.2 - 1.0 %) 0.7 Neut # (Auto) (2.2 - 4.8 x10 3/uL) 5.68 H Lymph # (Auto) (1.3 - 2.9 x10 3/uL) 1.32 Power # (Auto) (0.3 - 0.8 x10 3/uL) 0.46 Eos # (Auto) (0.0 - 0.2 x10 3/uL) 0.07 Baso # (Auto) (0.0 - 0.1 x10 3/uL) 0.05 Immature Gran % (0.0 - 2.0 %) 0.4 Nucleated RBC % (0 - 1.0 %) 0.0 Urines Urine Color (Yellow) Yellow Urine Appearance (Clear) Clear Urine pH (5.0 - 8.0) 5.0 Ur Specific [place] (<1.030) 1.029 Urine Protein (Negative mg/dL) 30 [...] Microbiology: Date/Time Procedure - Status Source Growth 06/29 1527 Blood Culture - RECD BLOOD 03/10 1527 Blood Culture - RECD BLOOD Recent [...] 1748 Disposition Decision Admit Admit Physician Name Toni,Pavel Helton MD Admit Physician Hospitalist Request Time [...] Landa MD R1 on at 2008 RPT #:[id number] END OF REPORT 2020-06-28 [facility] 16:47:00-00:00 [facility] ([facility]) EMERGENCY PROVIDER REPORT REPORT#:[id number] REPORT STATUS: Signed DATE:06/28/20 TIME: 1646 PATIENT: HARJINDER COLUNGA UNIT #: [id number] ROOM/BED: 1101-A AGE: 55 SEX: M PCP PHYS: No Primary or Family Ph ysician SERVICE AUTHOR: Giovany Landa MD R1 * ALL edits or amendments must be made on the [employer] document * Giovany Landa V 06/28/20 1647: [...] are a. General Initial Greet Date/Time 06/28/20 8517 Presentation Chief Complaint Diabetic foot wound Hx [...] MG/DL LAST PM ). Additional Medical History [place] in 2003 Additional Surgical History None Drug [...] Lymphatic Lymphatic No gross adenopathy, No cervical nurys nopathy MS Upper Extrem Upper Extremity/MS Atraumatic, Inspection NL, F ull range of motion MS Wrist/Hand Wrist/Hand Atraumatic, Inspection NL, Full rang e of motion MS Lower Extrem Lower Ext/Pelvis/MS Atraumatic, Inspection NL, Full range of motion MS Ankle/Foot Text/Dict Notes L foot ulcer on ball of foot [id number] wit h scattered ulcer throughout the foot. [...] (Auto) (20.5 - 45.5 %) 17.3 L Power % (Auto) (5.5 - 11.7 %) 6.0 Eos % (Auto) (0.9 - 2.9 %) 0.9 Baso % (Auto) (0.2 - 1.0 %) 0.7 Neut # (Auto) (2.2 - 4.8 x10 3/uL) 5.68 H Lymph # (Auto) (1.3 - 2.9 x10 3/uL) 1.32 Power # (Auto) (0.3 - 0.8 x10 3/uL) 0.46 Eos # (Auto) (0.0 - 0.2 x10 3/uL) 0.07 Baso # (Auto) (0.0 - 0.1 x10 3/uL) 0.05 Immature Gran % (0.0 - 2.0 %) 0.4 Nucleated RBC % (0 - 1.0 %) 0.0 Urines Urine Color (Yellow) Yellow Urine Appearance (Clear) Clear Urine pH (5.0 - 8.0) 5.0 Ur Specific [place] (<1.030) 1.029 Urine Protein (Negative mg/dL) 30 [...] Consultation Consultation Referral/Consult Name Obed Lopez DPM Disabilities Services Officer Called Podiatry Requested Call Time 1657 Requested Call Date 06/28/20 Call Returned Call returned Call Returned Time 165 Call Returned Date 06/28/20 Disabilities Services Officer Will see patient Patient Discharge Departure Disposition Decision Admit Admit Physician Name Nathanael Laureano Rasheed 06/28/20 1716: Physical Exam Vital Signs Vital Signs First Documented: Result Date Time O2 Delivery Room air 06/28 1458 Pulse Ox 97 /10 1503 Temp 37.4 /10 1503 Pulse 109 /10 1503 Resp 18 / 1503 B/P 129/81 /10 1504 B/P Mean [...] 03/10 1504 B/P Mean 97.0 /10 1504 Last Documented: Result Date Time B/P [...] Landa MD R1 on at 2008 RPT #:[id number] END OF REPORT 2020-06-28 [facility] 16:47:00-00:00 [facility] ([facility]) EMERGENCY PROVIDER REPORT REPORT#:[id number] REPORT STATUS: Signed DATE:06/28/20 TIME: 1646 PATIENT: HARJINDER COLUNGA UNIT #: [id number] ROOM/BED: C1101-A AGE: 55 SEX: M PCP PHYS: No Primary or Family Ph ysician SERVICE AUTHOR: iGovany Landa MD R1 * ALL edits or amendments must be made on the [employer] document * Giovany Landa V 06/28/20 1647: [...] are a. General Initial Greet Date/Time 06/28/20 3307 Presentation Chief Complaint Diabetic foot wound Hx [...] MG/DL LAST PM ). Additional Medical History [place] in 2003 Additional Surgical History None Drug [...] L foot ulcer on ball of foot [id number] wit h scattered ulcer throughout the foot. [...] (Auto) (20.5 - 45.5 %) 17.3 L Power % (Auto) (5.5 - 11.7 %) 6.0 Eos % (Auto) (0.9 - 2.9 %) 0.9 Baso % (Auto) (0.2 - 1.0 %) 0.7 Neut # (Auto) (2.2 - 4.8 x10 3/uL) 5.68 H Lymph # (Auto) (1.3 - 2.9 x10 3/uL) 1.32 Power # (Auto) (0.3 - 0.8 x10 3/uL) 0.46 Eos # (Auto) (0.0 - 0.2 x10 3/uL) 0.07 Baso # (Auto) (0.0 - 0.1 x10 3/uL) 0.05 Immature Gran % (0.0 - 2.0 %) 0.4 Nucleated RBC % (0 - 1.0 %) 0.0 Urines Urine Color (Yellow) Yellow Urine Appearance (Clear) Clear Urine pH (5.0 - 8.0) 5.0 Ur Specific [place] (<1.030) 1.029 Urine Protein (Negative mg/dL) 30 [...] Consultation Consultation Referral/Consult Name Obed Lopez DPM Disabilities Services Officer Called Podiatry Requested Call Time 1656 Requested Call Date 06/28/20 Call Returned Call returned Call Returned Time 1656 Call Returned Date 06/28/20 Disabilities Services Officer Will see patient Patient Discharge Departure Disposition [...] Muñoz MD Admit Physician Hospitalist Request Time 1749 Request Date 06/28/20 )( Admission Accepts Yes [...] Dolan DO on 03/11 at 0035 RPT #:[id number] END OF REPORT 2020-06-28 [facility] 15:11:00-00:00 [facility] ([facility]) EMERGENCY PROVIDER REPORT REPORT#:[id number] REPORT STATUS: Signed DATE:06/28/20 TIME: 1511 PATIENT: HARJINDER COLUNGA UNIT #: [id number] ROOM/BED: [facility] AGE: 55 SEX: M PCP PHYS: No Primary or Family Ph ysician SERVICE AUTHOR: Mi Ellis VAMP CUT OUT WORKER * ALL edits or amendments must be made on the [employer] document * Provider in Triage - Adult Provider in Triage Initial Greet Date/Time 06/28/20 7904 Greet Note I have greeted and performed [...] MG/DL LAST PM ). Additional Medical History [place] in 2003 Additional Surgical History None Patient [...] NP on at 1512 at 2344 RPT #:[id number] END OF REPORT 2020-06-28 [facility]00 [facility] ([facility]) EMERGENCY PROVIDER REPORT REPORT#:[id number] REPORT STATUS: Signed DATE:06/28/20 TIME: 151 PATIENT: HARJINDER COLUNGA UNIT #: [id number] ROOM/BED: AGE: 55 SEX: M PCP PHYS: No Primary or Family Ph ysician SERVICE DT: AUTHOR: Mi Ellis VAMP CUT OUT WORKER * ALL edits or amendments must be made on the [employer] document * Provider in Triage - Adult Provider in Triage Initial Greet Date/Time 06/28/20 4327 Greet Note I have greeted and performed [...] MG/DL LAST PM ). Additional Medical History [place] in 2003 Additional Surgical History None Patient History FATHER, . Family History: Heart disease MOTHER Family History: Diabetes Family History: Heart disease Drug Use Denies recreational drugs Smoking status: Smoking status for patients 13 years old or old er: Current every day smoker Other Social History Hx of substance and alcohol abuse Electronically Signed by Mi Ellis NP on at 1512 RPT #:[id number] END OF REPORT 2020-02-27 [facility] 14:13:00-00:00 [facility] ([facility]) EMERGENCY PROVIDER REPORT REPORT#:[id number] REPORT STATUS: Signed DATE:02/27/20 TIME: 1413 PATIENT: HARJINDER COLUNGA UNIT #: [id number] ROOM/BED: AGE: 54 SEX: M PCP PHYS: No Primary or Family P hysician SERVICE AUTHOR: Rod Cerda NP * ALL edits or amendments must be made on the [employer] document * HPI-Rash/Abscess/Cellulitis General Confirmed Patient Yes [...] MG/DL LAST PM ). Additional Medical History [place] in 2003 Additional Surgical History None Drug Use Denies recreational drugs Smoking status for patients 13 years old or olde r: Unknown,if ever smoked Other Social History Hx of substance and alcohol abuse Physical Exam Vital Signs Vital Signs First Documented: Result Date Time Pulse Ox 98 02/26 1358 B/P 130/65 02/26 1358 B/P Mean 86 02/26 1358 O2 Delivery Room air 02/26 135 Temp 36.7 02/26 1358 Pulse 96 02/26 [...] MG Recent Impressions: ULTRASOUND - US EXTREM [facility] 02/26 1518 Report Impression - Status: SIGNED Entered: 02/27/2020 1550 IMPRESSION: 1. Soft tissue edema without discrete dominant f luid collection or cystic or solid mass lesion. Impression By: [email or web address] - Donaldo Tang M.D. Lab Statement Laboratory studies reviewed and considered in [facility] medical decision-making. Re-Evaluation MDM Re-Evaluation/Progress Re-Evaluation/Progress [...] WITH MEALS Patient Instructions ED Cellulitis Referrals [facility] Departure Forms WORK/SCHOOL EXCUSE VARIABLE Discharge Note [...] symptoms should prompt an immediate return to [facility] or the closest emergency department or a call to 911. at 0750 [facility] #:[id number] END OF REPORT 2020-02-27 [facility] 14:13:00-00:00 [facility] ([facility]) EMERGENCY PROVIDER REPORT REPORT#:[id number] REPORT STATUS: Signed DATE:02/27/20 TIME: 1413 PATIENT: HARJINDER COLUNGA UNIT #: [id number] ROOM/BED: AGE: 54 SEX: M PCP PHYS: No Primary or Family Ph ysician SERVICE AUTHOR: Rod Cerda VAMP CUT OUT WORKER * ALL edits or amendments must be made on the [employer] document * Rod Cerda 02/27/20 1413: HPI-Rash/Abscess/Cellulitis [...] MG/DL LAST PM ). Additional Medical History [place] in 2003 Additional Surgical History None Drug Use Denies recreational drugs Smoking status for patients 13 years old or olde r: Unknown,if ever smoked Other Social History Hx of substance and alcohol abuse Physical Exam Vital Signs Vital Signs First Documented: Result Date Time Pulse Ox 98 02/26 1358 B/P 130/65 02/26 1358 B/P Mean 86 02/26 1358 O2 Delivery Room air 02/26 135 Temp 98.1 02/26 1358 Pulse 96 02/26 1358 Resp 16 02/26 1358 Last Documented: Result Date Time Pulse Ox 98 02/27 1600 B/P 125/80 02/27 1600 B/P Mean 95 02/27 1600 O2 Delivery Room air 02/27 1600 Temp 98.0 02/27 1600 Pulse 89 02/27 1600 Resp 16 02/27 1600 Review of [...] 10-25 MG Recent Impressions: ULTRASOUND - [facility] 02/26 1518 Report Impression - Status: SIGNED Entered: 02/27/2020 4812 IMPRESSION: 1. Soft tissue edema without discrete dominant f luid collection or cystic or solid mass lesion. Impression By: [email or web address] - Donaldo Tang M.D. Lab Statement Laboratory studies reviewed and considered in e medical decision-making. Re-Evaluation MDM Re-Evaluation/Progress Re-Evaluation/Progress [...] WITH MEALS Patient Instructions ED Cellulitis Referrals [facility] Departure Forms WORK/SCHOOL EXCUSE VARIABLE Discharge Note [...] symptoms should prompt an immediate return to [facility] or the closest emergency department or [...] were reviewe d. I agree with this PA/manager fraud findings, exam and plan. at 0750 at 0310 RPT #:[id number] END OF REPORT 2019-10-08 [facility] 12:43:00-00:00 [facility] ([facility]) EMERGENCY PROVIDER REPORT REPORT#:[id number] REPORT STATUS: Signed DATE:10/08/19 TIME: 1243 PATIENT: HARJINDER COLUNGA UNIT #: [id number] ROOM/BED: AGE: 54 SEX: M PCP PHYS: No Primary or Family Ph ysician SERVICE AUTHOR: Brennan Dupont MD * ALL edits or amendments must be made on the el [employer]/computer document * HPI-General Illness Free Text HPI Notes Free Text HPI Notes 54-year-old male history of diabetes, heart dise ase, who presents with right- sided flank pain. Patient states flank pain is b een worsening over last few days and thinks it is his kidneys. Patient state s he has not urinated today. Patient also has elevated blood sugar. H dianne has not taken his metformin for past [...] MG/DL LAST PM ). Additional Medical History [place] in 2003 Additional Surgical History None Drug [...] clubbing, edema, Musculoskeletal: normal inspection, normal tone Neuro/LENS GRINDER ROUGH: alert oriented x 3, nonfocal Skin: warm, [...] (Auto) (25.0 - 55.0 %) 16.6 L Power % (Auto) (0.0 - 10.0 %) 6.5 Eos % (Auto) (0.0 - 5.0 %) 4.0 Baso % (Auto) (0.0 - 1.0 %) 0.2 Neut # (Auto) (1.8 - 7.7 K/mm3) 4.11 Lymph # (Auto) (1.0 - 5.0 K/mm3) 0.95 L Power # (Auto) (0 - 0.8 K/mm3) 0.37 Eos # (Auto) (0.0 - 0.5 K/mm3) 0.23 Baso # (Auto) (0.0 - 0.2 K/mm3) 0.01 Add Manual Diff NO Urines Urine Color (YELLOW) YELLOW Urine Appearance (CLEAR) SLIGHTLY HAZY H Urine pH (5.0 - 8.0) 6.0 Ur Specific [place] (1.001 - 1.035) 1.020 Urine Protein (Neg [...] abdominal or pelvic abno rmalities. Location code: [facility] Impression By: Brenda Mcdaniel M.D. Re-Evaluation MDM [...] Chloride 1,000 ML X1ED STA 10/07 1227 D C 10/07 IV 10/07 1228 1247 Hormones And [...] Referrals Tu Herndon MD at 1723 RPT #:[id number] END OF REPORT
[2022-12-05] MEDS ORDERED: levETIRAcetam 500 MG TAB ONE (02:27)
[2022-12-05 02:47] LABS: Absolute Lymphocytes (CBC) 1.4 K/uL (0.7-4.9); Hematocrit 32.1 % (39.6-49.0); Lymphocytes % 13.5 % (15.3-44.8); MCV 87.1 fL (80-100); MPV 8.2 fL (7.6-11.3); Platelets 290 thou/uL (152-406); RBC Red Blood Cell Count 3.69 M/uL (4.33-5.43)
[2022-12-05 02:56] LABS: ALT/SGPT 19 U/L (16-61); AST/SGOT 11 U/L (15-37); Alkaline Phosphatase 73 U/L (45-117); BUN Blood Urea Nitrogen 31 mg/dL (7-18); Bicarbonate 24 mEq/L (21-32); Glomerular Filtration Rate 81 ml/min (=/>90); Glucose Level 81 mg/dL (74-106); NT PRO-BNP 804 pg/mL (<125); Potassium 4.4 mEq/L (3.5-5.1); Protein, Total 7.1 g/dL (6.4-8.2); Sodium Level 139 mEq/L (136-145); Troponin High Sensitivity 5.2 pg/mL (<58.9); Valproic Acid (Depakene) Level 35.4 mcg/mL (50.0-100.0)
[2022-12-05 03:02] LABS: Bilirubin Direct < 0.1 mg/dL (0-0.2); Bilirubin Indirect, Calculated ND mg/dL (0.2-0.8); Bilirubin Total < 0.1 mg/dL (0.2-1.0)
--- NOTE | 2022-12-05 03:10 | ER ---
Nurse's Notes [facility] Name: Shivam Block Age: 57 yrs Sex: Male : 1965 Arrival Date: 12/05/2022 Time: 00:34 Bed 6 Private MD: Diagnosis: Other seizures Presentation: 12/05 00:54 Chief complaint: Patient states: i haven't had any of my home medications for the last lg3 4 days including my Depakote and i have had 3 seizures today. Coronavirus screen: Client denies travel out of the [place] in the last 14 days. At this time, the client does not indicate any symptoms associated with coronavirus-19. Ebola Screen: No symptoms or risks identified at this time. Initial Sepsis Screen: Does the patient meet any 2 criteria? No. Patient's initial sepsis screen is negative. Does the patient have a suspected source of infection? No. Patient's initial sepsis screen is negative. Risk Assessment: Do you want to hurt yourself or someone else? Patient reports no desire to harm self or others. Onset of symptoms was December 05, 2022. 00:54 Method Of Arrival: EMS: [facility] lg3 00:54 Acuity: TERRANCE 3 lg3 Triage Assessment: 00:58 General: Appears in no apparent distress. comfortable, Behavior is calm, cooperative. lg3 Pain: Complains of pain in left stump. EENT: No deficits noted. No signs and/or symptoms were reported regarding the EENT system. Neuro: No deficits noted. Garcia Agitation-Sedation Scale (RASS): 0 - Alert and Calm Level of Consciousness is awake, alert, obeys commands, Oriented to person, place, time, situation. Cardiovascular: No deficits noted. Denies chest pain, shortness of breath, Capillary refill < 3 seconds Clubbing of nail beds is absent JVD is absent Patient's skin is warm and dry. Respiratory: No deficits noted. Airway is patent Respiratory effort is even, unlabored, Respiratory pattern is regular, symmetrical. GI: No deficits noted. No signs and/or symptoms were reported involving the gastrointestinal system. : No deficits noted. No signs and/or symptoms were reported regarding the genitourinary system. Derm: No deficits noted. No signs and/or symptoms reported regarding the dermatologic system. Skin is intact, is healthy with good turgor, Skin is dry, Skin is normal, Skin temperature is warm. Musculoskeletal: No deficits noted. No signs and/or symptoms reported regarding the musculoskeletal system. 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 Circulation, motion, and sensation intact. Range of motion: intact in all extremities. Historical: - Allergies: 00:58 Fish Containing Products; lg3 00:58 SEAFOOD; lg3 - Home Meds: 00:58 Amiodarone Oral [Active]; atorvastatin oral [Active]; cephalexin Oral [Active]; lg3 Depakote Oral [Active]; eloquis [Active]; gabapentin 750 mg Oral Tablet, Extended Release 24 hr [Active]; lisinopril Oral [Active]; Metoprolol Tartrate Oral [Active]; sertraline oral [Active]; Hydrocodone-Acetaminophen Oral [Active]; insulin [Active]; - PMHx: 00:58 Hypertensive disorder; Atrial fibrillation; diabetes mellitus; Myocardial infarction; lg3 - PSHx: 00:58 bilateral BKA; lg3 - Immunization history:: Adult Immunizations up to date, Client reports having NOT received the Covid vaccine. Flu vaccine is up to date. - Social history:: Smoking status: Patient reports the use of cigarette tobacco products, smokes one pack cigarettes per day. Patient/guardian denies using alcohol, street drugs. Screenin:04 [facility] ED Fall Risk Assessment (Adult) History of falling in the last 3 months, lg3 including since admission No falls in past 3 months (0 pts). Abuse screen: Denies threats or abuse. Denies injuries from another. Nutritional screening: No deficits noted. Tuberculosis screening: No symptoms or risk factors identified. Assessment: 01:04 General: see triage assessment. lg3 02:28 Reassessment: Patient appears in no apparent distress at this time. No changes from lg3 previously documented assessment. Patient and/or family updated on plan of care and expected duration. Pain level reassessed. Patient is alert, oriented x 3, equal unlabored respirations, skin warm/dry/pink. Patient states symptoms have improved. 03:49 General: pt to DC once transportation set up by family. in progress at this time. lg3 Vital Signs: 00:54 BP 138 / 55; Pulse 64; Resp 15; Temp 98.3(O); Pulse Ox 98% on R/A; Weight 84 kg (M); lg3 02:28 BP 112 / 69; Pulse 65; Resp 16 S; Pulse Ox 97% on R/A; lg3 03:51 BP 121 / 74; Pulse 69; Resp 16 S; Pulse Ox 99% on R/A; lg3 Remlap Coma Score: 00:58 Eye Response: spontaneous(4). Motor Response: obeys commands(6). Verbal Response: lg3 oriented(5). Total: 15. ED Course: 00:53 Patient arrived in ED. kd3 00:53 Alejandro Corbett MD is Attending Physician. kdr 00:54 Lucia Krueger, [place] is Primary Nurse. lg3 00:58 Triage completed. lg3 00:58 Arm band placed on right wrist. lg3 01:04 Patient has correct armband on for positive identification. Placed in gown. Bed in low lg3 position. Call light in reach. Side rails up X2. Seizure precautions initiated. Client placed on continuous cardiac and pulse oximetry monitoring. NIBP monitoring applied. case monitor on. Door closed. Noise minimized. Warm blanket given. Family not contacted per patient request. 01:04 Patient maintains SpO2 saturation greater than 95% on room air. lg3 01:44 Troponin HS Sent. kd3 01:44 NT PRO-BNP Sent. kd3 01:44 Magnesium Sent. kd3 01:44 LFT's Sent. kd3 01:44 CBC with Diff Sent. kd3 01:44 Basic Metabolic Panel Sent. kd3 01:44 Missed attempt(s): 20 gauge in right antecubital area. kd3 01:58 XRAY Chest (1 view) In Process Unspecified. EDMS 02:24 Inserted saline lock: 22 gauge in right ,using aseptic technique. shoulder Blood kl collected. 03:52 No provider procedures requiring assistance completed. lg3 04:08 IV discontinued, intact, bleeding controlled, No redness/swelling at site. Pressure lg3 dressing applied. Administered Medications: 02:19 Not Given (Other Intervention Used): Keppra IV 1000 mg IV at calculated rate once lg3 02:19 Drug: Keppra PO 1000 mg Route: PO; lg3 03:51 Follow up: Response: No adverse reaction lg3 Medication: 01:44 VIS not applicable for this client. kd3 Outcome: 03:09 Discharge ordered by . kdr 04:07 Discharged to home via wheelchair. lg3 04:07 Condition: stable 04:07 Discharge instructions given to patient, Instructed on discharge instructions, follow up and referral plans. medication usage, Demonstrated understanding of instructions, follow-up care, medications, Prescriptions given X 1. 04:08 Patient left the ED. lg3 Signatures: Dispatcher [employer] EDVeda Henry RN RN Alejandro Roberts MD MD kdr Gibson, Lacie, RN RN lg3 Evelia Galan RN RN kd3
--- NOTE | 2022-12-05 03:10 | EDPHYS ---
Physician Documentation [facility] Name: Shivam Block Age: 57 yrs Sex: Male : 1965 Arrival Date: 12/05/2022 Time: 00:34 Bed 6 Private MD: ED Physician Alejandro Corbett HPI: 12/05 02:16 This 57 yrs old Male presents to ER via EMS with complaints of Seizure. kdr 02:29 Patient states that he had 3 seizures earlier today. The last time was when he was on kdr the toilet. He did not fall or hurt himself he denies LOC beyond the seizure activity. He did not have any trauma.. Onset: The symptoms/episode began/occurred suddenly, gradually. 03:11 Severity of symptoms: At their worst the symptoms were mild moderate incapacitating kdr just prior to arrival, in the emergency department the symptoms have resolved. The patient has experienced similar episodes in the past, chronically. It is unknown whether or not the patient has recently seen a physician. Patient reports that he has not had his medications of any sort for the last 4 days. However the son called up and said that he had not had his medications for some 4 months. 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 If the patient is discharged he will be picked up by his son who is taking control of his care at this time.. Historical: - Allergies: 00:58 Fish Containing Products; lg3 00:58 SEAFOOD; lg3 - Home Meds: 00:58 Amiodarone Oral [Active]; atorvastatin oral [Active]; cephalexin Oral [Active]; lg3 Depakote Oral [Active]; eloquis [Active]; gabapentin 750 mg Oral Tablet, Extended Release 24 hr [Active]; lisinopril Oral [Active]; Metoprolol Tartrate Oral [Active]; sertraline oral [Active]; Hydrocodone-Acetaminophen Oral [Active]; insulin [Active]; - PMHx: 00:58 Hypertensive disorder; Atrial fibrillation; diabetes mellitus; Myocardial infarction; lg3 - PSHx: 00:58 bilateral BKA; lg3 - Immunization history:: Adult Immunizations up to date, Client reports having NOT received the Covid vaccine. Flu vaccine is up to date. - Social history:: Smoking status: Patient reports the use of cigarette tobacco products, smokes one pack cigarettes per day. Patient/guardian denies using alcohol, street drugs. ROS: 03:11 Constitutional: Negative for fever, chills, and weight loss, Eyes: Negative for injury, kdr pain, redness, and discharge, ENT: Negative for injury, pain, and discharge, Neck: Negative for injury, pain, and swelling, Cardiovascular: Negative for chest pain, palpitations, and edema, Respiratory: Negative for shortness of breath, cough, wheezing, and pleuritic chest pain, Abdomen/GI: Negative for abdominal pain, nausea, vomiting, diarrhea, and constipation, Back: Negative for injury and pain, : Negative for injury, bleeding, discharge, and swelling, Skin: Negative for injury, rash, and discoloration, Psych: Negative for depression, anxiety, suicide ideation, homicidal ideation, and hallucinations, Allergy/Immunology: Negative for hives, rash, and allergies, Endocrine: Negative for neck swelling, polydipsia, polyuria, polyphagia, and marked weight changes, Hematologic/Lymphatic: Negative for swollen nodes, abnormal bleeding, and unusual bruising. 03:11 MS/extremity: Positive for Bilateral BKA. 03:11 Neuro: Positive for seizure activity. Exam: 03:11 Constitutional: This is a well developed, well nourished patient who is awake, alert, kdr and in no acute distress. Head/Face: Normocephalic, atraumatic. Eyes: Patient is blind and limited exam was performed Neck: Trachea midline, no thyromegaly or masses palpated, and no cervical lymphadenopathy. Supple, full range of motion without nuchal rigidity, or vertebral point tenderness. No Meningismus. Chest/axilla: Normal chest wall appearance and motion. Nontender with no deformity. No lesions are appreciated. Cardiovascular: Regular rate and rhythm with a normal S1 and S2. No gallops, murmurs, or rubs. Normal PMI, no JVD. No pulse deficits. Respiratory: Lungs have equal breath sounds bilaterally, clear to auscultation and percussion. No rales, rhonchi or wheezes noted. No increased work of breathing, no retractions or nasal flaring. Abdomen/GI: Soft, non-tender, with normal bowel sounds. No distension or tympany. No guarding or rebound. No evidence of tenderness throughout. Back: No spinal tenderness. No costovertebral tenderness. Full range of motion. Skin: Warm, dry with normal turgor. Normal color with no rashes, no lesions, and no evidence of cellulitis. Neuro: Awake and alert, GCS 15, oriented to person, place, time, and situation. Cranial nerves II-XII grossly intact. Motor strength 5/5 in all extremities. Sensory grossly intact. Cerebellar exam normal. Normal gait. Psych: Awake, alert, with orientation to person, place and time. Behavior, mood, and affect are within normal limits. 03:11 Musculoskeletal/extremity: Bilateral BKA otherwise unremarkable lower extremity exam. Vital Signs: 00:54 BP 138 / 55; Pulse 64; Resp 15; Temp 98.3(O); Pulse Ox 98% on R/A; Weight 84 kg (M); lg3 02:28 BP 112 / 69; Pulse 65; Resp 16 S; Pulse Ox 97% on R/A; lg3 03:51 BP 121 / 74; Pulse 69; Resp 16 S; Pulse Ox 99% on R/A; lg3 Musella Coma Score: 00:58 Eye Response: spontaneous(4). Motor Response: obeys commands(6). Verbal Response: lg3 oriented(5). Total: 15. MDM: 03:09 Patient medically screened. kdr 03:13 Data reviewed: vital signs, nurses notes, lab test result(s), radiologic studies. kdr 08 01:20 Order name: Depakote; Complete Time: 03:06 kdr 08 01:21 Order name: Basic Metabolic Panel; Complete Time: 03:06 [facility] 12/05 01:21 Order name: CBC with Diff; Complete Time: 03:06 [facility] 12/05 01:21 Order name: LFT's; Complete Time: 03:06 kdr 12/05 01:21 Order name: Magnesium; Complete Time: 03:06 [facility] 12/05 01:21 Order name: NT PRO-BNP; Complete Time: 03:06 [facility] 12/05 01:21 Order name: Troponin HS; Complete Time: 03:06 kdr 08 01:21 Order name: XRAY Chest (1 view) kdr 08 01:21 Order name: EKG; Complete Time: 01:21 kdr 08 01:21 Order name: Cardiac monitoring; Complete Time: 01:44 kdr 12/05 01:21 Order name: EKG - Nurse/Tech; Complete Time: 01:44 kdr 12/05 01:21 Order name: IV Saline Lock; Complete Time: 02:29 kdr 12/05 01:21 Order name: Labs collected and sent; Complete Time: :44 kdr 12/05 01:21 Order name: O2 Per Protocol; Complete Time: 01:44 kdr 12/05 01:21 Order name: O2 Sat Monitoring; Complete Time: :44 kdr 12/05 02:03 Order name: Misc. Order: recollect labs; hemolyzed; Complete Time: 02:25 vc1 Administered Medications: 02:19 Not Given (Other Intervention Used): Keppra IV 1000 mg IV at calculated rate once lg3 02:19 Drug: Keppra PO 1000 mg Route: PO; lg3 03:51 Follow up: Response: No adverse reaction lg3 Disposition Summary: 12/05/22 03:09 Discharge Ordered Location: Home kdr Problem: an acute exacerbation kdr Symptoms: are resolved kdr Condition: Stable kdr Diagnosis - Other seizures kdr Followup: kdr - With: Private Physician - When: 2 - 3 days - Reason: If symptoms return, Further diagnostic work-up, Recheck today's complaints, Continuance of care, Re-evaluation by your physician Discharge Instructions: - Discharge Summary Sheet kdr - Seizure, Adult, [id number] kdr Forms: - Medication Reconciliation Form kdr - Thank You Letter kdr - Patient Portal Instructions kdr - Leadership Thank You Letter kdr Prescriptions: - Depakote 500 mg Oral Tablet - take 1 tablet by ORAL route every 12 hours; 60 tablet; Refills: 0, Product kdr Selection Permitted Signatures: Dispatcher [employer] Alejandro Mullins MD MD kdr Lucia Krueger, RN RN lg3 Ethel Hernandez RN RN vc1
[2022-12-05 04:17] VITALS: TEMP 98.3
[2022-12-05 04:33] VITALS: BP 121/74; O2SAT 99
--- NOTE | 2022-12-05 13:58 | RAD REPORT ---
EXAM DESCRIPTION: RAD - Chest Single View - 12/05/2022 1:56 am CLINICAL HISTORY: Seizure TECHNIQUE: AP chest COMPARISON: September 27 FINDINGS: CHEST: Heart: The cardiomediastinal silhouette is within normal limits. Lungs: No focal consolidation. Mediastinum: Unremarkable Pleura: No appreciable effusion. No pneumothorax. Bones: Intact IMPRESSION: No acute cardiopulmonary disease. Electronically signed by: Cash Snider MD 12/05/2022 2:24 AM CDT Due to temporary technical issues with the PACS/Fluency reporting system, reports are being signed by the in house radiologists without review as a courtesy to insure prompt reporting. The interpreting radiologist is fully responsible for the content of the report.
--- NOTE | 2022-12-05 17:28 | EKG ---
Test Date: 2022-12-05 Test Time: 01:31:40 Network Contract Manager: AMANDA MEASUREMENT RESULTS: Intervals: Rate: 62 CT: 154 QRSD: 136 QT: 428 QTc: 434 Martell: P: 49 CT: 154 QRS: 247 T: 21 INTERPRETIVE STATEMENTS: Normal sinus rhythm Right bundle branch block Abnormal ECG Compared to ECG 09/27/2022 00:21:48 Myocardial infarct finding no longer present Electronically Signed On 12-05-22 17:27:00 CDT by Natanael Watson
== END 2022-12-05 04:08 | disposition home or self-care (01) ==
LOC: ER 00:34
DX: R56.9 Unspecified convulsions (principal); E11.9 Type 2 diabetes mellitus without complications; I10 Essential (primary) hypertension; I48.91 Unspecified atrial fibrillation; Z79.4 Long term (current) use of insulin; Z91.013 Allergy to seafood; Z89.512 Acquired absence of left leg below knee; Z89.511 Acquired absence of right leg below knee
CPT/HCPCS: 36415; 71045; 80048; 80076; 80164; 83735; 83880; 84484; 85025; 93005; 99285

== ENCOUNTER 2022-12-10 22:15 | Inpatient (IN) | payer OTHER ==
--- OUTSIDE RECORDS SUMMARY | 2022-12-10 22:38 | XMS REPORT | Continuity of Care Document ---
:1965 Author Organization [facility] t Address [address] [place] [address] Care Team Providers Name Role Phone Sharpless Primary Care Physician Jerry Roa Attending Clinician Unavailable JORDON VALDEZ Attending Clinician Unavailable JENI FARNSWORTH Attending Clinician Unavailable ALEXANDRA FINNEGAN Attending Clinician Unavailable LEIGHTON MINAYA Attending Clinician Unavailable Alexandra Higgins Attending Clinician Ramón Kraft NP Attending Clinician HALEY KRAFTUKWU Attending Clinician Unavailable YARED LÓPEZ Attending Clinician Unavailable PATRICK XAVIER Attending Clinician Unavailable MICHELINE DUPREE Attending Clinician Unavailable Doctor Unassigned, [place] Attending Clinician Unavailable Juliann BAILEY, Jeni Attending Clinician Hui Paez DO Attending Clinician 2, [facility] Attending Clinician Unavailable BLAS URBINA Attending Clinician Unavailable [facility] Attending Clinician LES ELLSWORTH Attending Clinician Unavailable Chasity THOMAS, Les Attending Clinician Fredis RN, Clare Attending Clinician Edy IBRAHIM, Alex Modi Attending Clinician Unavailable MALIK MAYO Attending Clinician Unavailable Brennan Love DO Attending Clinician Malik Mayo MD Attending Clinician Adolfo Hurley MD Attending Clinician ADOLFO HURLEY Attending Clinician Unavailable Hilda BAILEY, Francesca Attending Clinician Wilberto Joe MD Attending Clinician Mitzi BAILEY, Naif Attending Clinician Jose Alberto IBRAHIM, Cheryle Attending Clinician Unavailable Davin Walker MD Attending Clinician Faheem BAILEY, Jesus Liang Attending Clinician Thong Torres CRNA Attending Clinician Louisa Hansen Attending Clinician Kenneth Farr DO Attending Clinician [phone] Noman Brewer DO Attending Clinician Harinder BAILEY, Ron Ding Attending Clinician Alyse Bates MA Attending Clinician Unavailable Beulah Barcenas MD Attending Clinician Mari Gamboa CRNA Attending Clinician Cheri Carroll Attending Clinician Unavailable Lozano MD, Fortino Feldman Attending Clinician [phone] Hector Orozco MD Attending Clinician Fahad Costello DO Attending Clinician [phone] Uriel Pastor MD Attending Clinician July García DO Attending Clinician Arnulfo BAILEY, Laxmi Carbajal Attending Clinician Jeff Short MD Attending Clinician Pravin THOMAS, Chacha Carbajal Attending Clinician [phone] Renan BAILEY, Mary Estevez Attending Clinician Ab Lucas Attending Clinician Unavailable Solomon BAILEY, Wilberto Schwartz Attending Clinician Jarrett BAILEY, Ale Meeks Attending Clinician René De Jesus DO Attending Clinician [phone] Thong Cartagena MD Attending Clinician Fahad Anna MD Attending Clinician Margo Ingram Attending Clinician Unavailable KARINA_PRIYANKA_Yanick_Julissa Attending Clinician Unavailable Brennan Dupont Attending Clinician Unavailable RUDY EMERSON Attending Clinician Unavailable Vielka Arzaet [facility] Attending Clinician Unavailable Osito BAILEY, Shazia Germain Attending Clinician [phone] JAMIN LOPEZ Attending Clinician Unavailable Donaldo Martinez MD Attending Clinician [phone] Physician, No Primary or Family Admitting Clinician UnavailTu Chilel Admitting Clinician Unavailable LES ELLSWORTH Admitting Clinician Unavailable BRENNAN LOVE Admitting Clinician Unavailable ADOLFO HURLEY Admitting Clinician Unavailable FRANCESCA STEVENS Admitting Clinician Unavailable NOMAN BREWER Admitting Clinician Unavailable HECTOR OROZCO Admitting Clinician Unavailable JEFF SHORT Admitting Clinician Unavailable Ab Lucas Admitting Clinician Unavailable ALE FARIAS Admitting Clinician Unavailable KARINA_HGMDA_Yanick_J Admitting Clinician Unavailable Sahil House MA Unavailable Unavailable Jose WASTE MANAGEMENT SPECIALIST, Branch Unavailable Payers Payer Name Policy Type Policy Number Effective Date Expiration Date S [facility] C [id number] 2021 Medicare WellMed 00:00:00 [facility] D [id number] 2021 Medicare WellMed 00:00:00 [facility] C [id number] 2021 2021 Medicare WellMed 00:00:00 00:00:00 WELLMED/UHC DUAL [id number] 2022 COMP ALLY HMO-POS 00:00:00 [employer] STAR [id number] 2022 PLUS 00:00:00 [employer] GROUP - [id number] 2021 [facility] 00:00:00 (MEDICARE REPLACEMENT/ADVANT AGE - HMO) GENERIC MEDICARE [id number] 2021 ADVANTAGE 00:00:00 MEDICAID [place] [id number] 2021 00:00:00 MEDICARE PART A & [id number] 2020 2021 B 00:00:00 00:00:00 Problems Condition [...] Added automatic ally from request for surgery [id number] Acute UTI Acute UTI Disease Active Met hodi [facility] [facility] 00:00: Hospita 00 l Pyelonephr Pyelonephr Disease Active M ethodi itis itis 11-08 st 00:00: Hospita 00 l Cellulitis Cellulitis Disease Active M ethodi 8-11 st 00:00: Hospita 00 l DEPRESSION DEPRESSIO Diagnosis Active 2016-03-21 Memoria N Active 12-11 14:23:00 l 12/12/2015 18:30: Larry keenan MH 00 [facility] Depression Depression 85520-7 Active 2021-06-29 Harsh 2. screen - screen - 13:29:33 Sahil 0.1 .113 Negative Negative 883.4. 2 (Renamed (Renamed from from Screening Screening for for depression depression ) ) (Z13.31) (V79.0)Melisa is, MA Sahil Hypertensi Hypertensi 26425-6 Active 2021-06-29 Jose 2.16 on on (I10) 14:40:04 Branch 0.1.11 3 (401.9)Kodi 883.4. 2 lis, WASTE MANAGEMENT SPECIALIST Branch Nicotine Nicotine 52379-1 Active 2021-06-29 Harsh 2 . dependence dependence 13:29:27 Sahil 0.1.113 (F17.200) 883.4.2 (305.1)YUDITH Sprague Status Status 10141-4 Active 2021-06-29 Garcia, 2.16 .84 post below post below 16:29:18 Branch 0.1.113 knee knee 883.4.2 amputation amputation , right , right (Z89.511) (V49.75)Wi llis, WASTE MANAGEMENT SPECIALIST Branch [place] II 29635-9 Active 2021-06-29 Garcia, 2. 16.84 diabetes diabetes 13:34:22 Branch 0.1. 113 mellitus mellitus 883.4. 2 (E11.9) (250.00)Wi llis, WASTE MANAGEMENT SPECIALIST Branch Allergies, Adverse Reactions, Alerts Allergy Allergy Status Severity Reaction(s) Onset Inactive Treating Comm ents Source Name Type Date Date Clinician SEAFOOD/ Food Active Swelling Univer s FISH 4-09 ity of 00:00: [place] 00 Medical Branch Seafood/ Propensi Active Swelling Univ ers Fish ty to 07-28 ity of adverse 00:00: [place] reaction 00 Medical s Branch Other Propensi Active Swelling Method i ty to 24 st adverse 00:00: Hospita reaction 00 l s No Known DA Active U [facility] e [facility] Shellfis Propensi Active Swelling All Meth greer h ty to 10-[address] Containi adverse 00:00: per pt Hospita ng reaction 00 l Products s to drug No Known Allergy Active 2.16.84 Allergie 3-11 0.1.113 s 00:00: 883.4.2 00 No Known DA Active U [facility] s 00:00: d 00 [facility] Center No Known DA Active U [facility] 00:00: e 00 Medical [place] Food Food Active Memoria Seafood Seafood l [place] NO KNOWN Drug Active Univers ALLERGIE Class ity of S [facility] NO KNOWN Allergy Active [facility] Family History Family Member Diagnosis Comments Start Date Stop Date Source Natural father Heart disease [facility] Natural mother Diabetes [facility] Natural mother Heart disease [facility] Social History Social Habit Start Date Stop Date Quantity Comments Source History SDOH [facility] Fear History SDOH [facility] Emotional Alcohol Use: Non Drinker / 2.16.840. 1.98720 No Alcohol Use. 3.4.2 Drug Use: No drug use. 2.16.840.1.1 1388 3.4.2 Tobacco use: Current every 1-3ppd 2.16.840. 1.96258 day smoker. depending on 3.4.2 stress per pt History of tobacco Passive smoker Un iversity of use [place] [facility] History SDOH University o f Alcohol Std Drinks [place] [facility] History SDOH University o f Alcohol Binge [place] [facility] History SDOH University o f Social Connections [place] [facility] Get Together Branch History SDOH University o f Social Connections [place] [facility] Mu-Ism Branch History SDOH University o f Social Connections [place] [facility] Membership Branch History SDOH University o f Social Connections [place] [facility] Meetings Branch Gender identity [facility] Sexual orientation [facility] Exposure to 2022-09-02 2022-09-12 Not sure University of SARS-CoV-2 (event) 00:00:00 21:28:00 [place] [facility] Tobacco use and 2022-08-05 2022-08-05 User of Universit y of exposure 00:00:00 00:00:00 smokeless [place] [facility] tobacco Branch History SDOH 2022-07-29 2022-07-29 [...] 1 Univers ity of Worry 00:00:00 00:00:00 [place] [facility] History SDOH Food 2022-07-29 2022-07-29 1 Univers ity of Scarcity 00:00:00 00:00:00 [place] [facility] History SDOH 2022-07-29 2022-07-29 2 [...] University o f Housing Places 00:00:00 00:00:00 [facility] dilshad Lived Branch History SDOH 2022-07-29 2022-07-29 1 University o f Housing Homeless 00:00:00 00:00:00 [facility] dical Last Year Branch History of Social 2022-06-30 2022-06-[address] function 00:00:00 00:00:00 Hospital Cigarette 2022-06-25 2022-06-25 [facility] pack-years 00:00:00 00:00:00 Hospital Alcohol Comment 2021-12-11 [...] Stop Date Source Tobacco smoking consumption Univ ersity [facility] Medical unknown Branch Smokes tobacco daily 2022-08-05 00:00:00 Univers ity of [place] [facility] Medications Ordered Filled Start Stop Current Ordering Indication Dosage Frequency Signature Comments Components Source Medication Medication Date Date Medication? Clinician (SIG) Name Name apixaban 5 Yes 5mg Take 1 Unive rs mg tablet 8-18 tablet by ity o f 00:00: mouth in [place] 00 the Medical morning Branch and 1 tablet in the evening. Indication s: ATRIAL FIBRILLATI ON atorvastati Yes [id number] 40mg Take 1 Univers n 40 mg 8-18 tablet by ity of tablet 00:00: mouth at [place] [address] bedtime. Medical Branch Bifidobacte Yes [id number] 4mg Take 1 Univers rium 8-18 capsule by ity of Infantis 00:00: mouth in [place] (ALIGN) 4 00 the Medical mg capsule morning. Bran h gabapentin Yes [id number] 400mg Take 1 Univers 400 mg 8-18 capsule by ity of capsule 00:00: mouth in [place] 00 the Medical morning Branch and 1 capsule at noon and 1 capsule in the evening. lisinopriL Yes [id number] 2.5mg Take 1 Univers 2.5 mg 8-18 tablet by ity of tablet 00:00: mouth in [place] 00 the Medical morning. Branch metFORMIN Yes [id number] 500mg Take 1 Univers 500 mg 8-18 tablet by ity of tablet 00:00: mouth in [place] 00 the Medical morning Branch and 1 tablet in the evening. Take with meals. metoprolol Yes [id number] 25mg Take 1 U nivers tartrate 25 8-18 tablet by ity of mg tablet 00:00: mouth in [place] [facility] 00 the Medical morning Branch and 1 tablet in the evening. SERTraline Yes [id number] 25mg Take 1 Univers 25 mg 8-18 tablet by ity of tablet 00:00: mouth in [place] 00 the Medical morning. Branch amiodarone Yes [id number] 200mg Take 1 Univers 200 mg 8-18 tablet by ity of tablet 00:00: mouth in [place] 00 the Medical morning. [place] insulin Yes [id number] 14U inject 14 Univers glargine 8-18 Units ity of (SEMGLEE 00:00: under the [facility] U-100 00 skin in Medical INSULIN) [facility] 100 unit/mL morning. injection SEMGLEE,INS 2022- No 14U inject 14 Univers ULIN 7-19 07-19 Units ity of GLARGINE-YF 14:32: 00:00 under the [place], [place] 43 :00 skin in [facility] morning. As directed SEMGLEE,INS 2022- No 14U inject 14 Univers ULIN 7-19 07-19 Units ity of GLARGINE-YF 14:32: 00:00 under the [place] :00 skin in [facility] morning. As directed SEMGLEE,INS 2022- No 14U inject 14 Univers ULIN 7-19 07-19 Units ity of GLARGINE-YF 14:32: 00:00 under the [place] :00 skin in [facility] morning. As directed SEMGLEE,INS 2022- No 14U inject 14 Univers ULIN 7-19 07-19 Units ity of GLARGINE-YF 14:32: 00:00 under the [place], [place] :00 skin in [facility] morning. As directed divalproex Yes [id number] 500mg Take 1 Univers ER 500 mg 7-19 tablet by ity o f 24 hr 00:00: mouth [place] tablet 00 every 24 Medical (twenty-fo [place] ur) hours. insulin Yes [id number] 14U inject 14 Univers glargine 7-19 Units ity of (SEMGLEE 00:00: under the [facility] U-100 00 skin in Medical INSULIN) [facility] 100 unit/mL morning. injection amiodarone Yes [id number] 200mg Take 1 Univers 200 mg 7-19 tablet by ity of tablet 00:00: mouth in [place] [address] the Medical morning. [place] apixaban 5 Yes 5mg Take 1 Unive rs mg tablet 7-19 tablet by ity o f 00:00: mouth in [place] the morning Branch and 1 tablet in the evening. Indication s: ATRIAL FIBRILLATI ON metFORMIN 2022-0 Yes [id number] 500mg Take 1 Univers 500 mg 7-19 tablet by ity of tablet 00:00: mouth in [place] the morning Branch and 1 tablet in the evening. Take with meals. divalproex 2022-0 Yes [id number] 500mg Take 1 Univers ER 500 mg 7-19 tablet by ity o f 24 hr 00:00: mouth [place] tablet 00 every 24 Medical ([facility] ur) hours. insulin 2022-0 Yes [id number] 14U inject 14 Univers glargine 7-19 Units ity of (SEMGLEE 00:00: under the [employer] s U-100 00 skin in Medical INSULIN) the Branch 100 unit/mL morning. injection amiodarone 2022-0 Yes [id number] 200mg Take 1 Univers 200 mg 7-19 tablet by ity of tablet 00:00: mouth in [place] the Medical morning. Branch apixaban 5 2022-0 Yes 5mg Take 1 Unive rs mg tablet 7-19 tablet by ity o f 00:00: mouth in [place] the morning Branch and 1 tablet in the evening. Indication s: ATRIAL FIBRILLATI ON metFORMIN 2022-0 Yes [id number] 500mg Take 1 Univers 500 mg 7-19 tablet by ity of tablet 00:00: mouth in [place] the morning Branch and 1 tablet in the evening. Take with meals. divalproex 2022-0 Yes [id number] 500mg Take 1 Univers ER 500 mg 7-19 tablet by ity o f 24 hr 00:00: mouth [place] tablet 00 every 24 Medical ([facility] ur) hours. insulin 2022-0 Yes [id number] 14U inject 14 Univers glargine 7-19 Units ity of (SEMGLEE 00:00: under the [employer] s U-100 00 skin in Medical INSULIN) the Branch 100 unit/mL morning. injection amiodarone 2022-0 Yes [id number] 200mg Take 1 Univers 200 mg 7-19 tablet by ity of tablet 00:00: mouth in [place] 00 the Medical morning. Branch apixaban 5 2022-0 Yes 5mg Take 1 Unive rs mg tablet 7-19 tablet by ity o f 00:00: mouth in [place] 00 the Medical morning Branch and 1 tablet in the evening. Indication s: ATRIAL FIBRILLATI ON metFORMIN 2022-0 Yes [id number] 500mg Take 1 Univers 500 mg 7-19 tablet by ity of tablet 00:00: mouth in [place] 00 the Medical morning Branch and 1 tablet in the evening. Take with meals. divalproex 3-0 Yes [id number] 500mg Take 1 Univers ER 500 mg 7-19 tablet by ity o f 24 hr 00:00: mouth [place] tablet 00 every 24 Medical (twenty- Branch ur) hours. divalproex 2022-0 Yes [id number] 500mg Take 1 Univers ER 500 mg 7-19 tablet by ity o f 24 hr 00:00: mouth [place] tablet 00 every 24 Medical (twenty- Branch ur) hours. insulin 2022- No [id number] 14U inject 14 Univers glargine 7-19 08-18 Units ity of (SEMGLEE 00:00: 00:00 under the [place] U-100 00 :00 skin in Medical INSULIN) the Branch 100 unit/mL morning. injection amiodarone 2022- No [id number] 200mg Take 1 Univers 200 mg 7- 08-18 tablet by ity of tablet 00:00: 00:00 mouth in [place] 00 :00 the Medical morning. Branch apixaban 5 2022- No 5mg Take 1 Univ ers mg tablet 7- 08-18 tablet by ity of 00:00: 00:00 mouth in [place] 00 :00 the Medical morning Branch and 1 tablet in the evening. Indication s: ATRIAL FIBRILLATI ON metFORMIN 2022-0 2022- No [id number] 500mg Take 1 Univers 500 mg 7-19 08-18 tablet by ity of tablet 00:00: 00:00 mouth in [place] 00 :00 the Medical morning Branch and 1 tablet in the evening. Take with meals. insulin 2022-2022- No [id number] 14U inject 14 Univers glargine 7-19 08-18 Units ity of (SEMGLEE 00:00: 00:00 under the [place] U-100 00 :00 skin in Medical INSULIN) the Branch 100 unit/mL morning. injection amiodarone 2022-2022- No [id number] 200mg Take 1 Univers 200 mg -07 12-18 tablet by ity of tablet 00:00: 00:00 mouth in [place] 00 :00 the Medical morning. Branch apixaban 5 2022- No 5mg Take 1 Univ ers mg tablet 11-06- tablet by ity of 00:00: 00:00 mouth in [place] 00 :00 the Medical morning Branch and 1 tablet in the evening. Indication s: ATRIAL FIBRILLATI ON metFORMIN 2022- No [id number] 500mg Take 1 Univers 500 mg 7-07 12-18 tablet by ity of tablet 00:00: 00:00 mouth in [place] 00 :00 the Medical morning Branch and 1 tablet in the evening. Take with meals. DIVALPROEX 2022-0 Yes [id number] TAKE 1 Univers ER 500 mg 6-30 TABLET BY ity o f 24 hr 00:00: MOUTH [place] tablet 00 EVERY 24 Medical HOURS Branch DIVALPROEX 2022-0 2022- No [id number] TAKE 1 Univers ER 500 mg 6-30 07-19 TABLET BY ity of 24 hr 00:00: 00:00 MOUTH [place] tablet 00 :00 EVERY 24 Medical HOURS Branch DIVALPROEX 2022-0 2022- No [id number] TAKE 1 Univers ER 500 mg 6-30 07-19 TABLET BY ity of 24 hr 00:00: 00:00 MOUTH [place] tablet 00 :00 EVERY 24 Medical HOURS Branch DIVALPROEX 2022-0 2022- No [id number] TAKE 1 Univers ER 500 mg 6-30 07-19 TABLET BY ity of 24 hr 00:00: 00:00 MOUTH [place] tablet 00 :00 EVERY 24 Medical HOURS Branch DIVALPROEX 2022-0 2022- No [id number] TAKE 1 Univers ER 500 mg 6-30 07-19 TABLET BY ity of 24 hr 00:00: 00:00 MOUTH [place] tablet 00 :00 EVERY 24 Medical HOURS Branch blood sugar 2022-0 Yes [id number] Check U nivers diagnostic 6-07 blood ity of strip 00:00: sugar 2 [place] 00 times a Medical day. Branch E11.9. Brand per insurance. Uses ACCU-CHEK machine blood sugar 2022-0 Yes [id number] Check U nivers diagnostic 6-07 blood ity of strip 00:00: sugar 2 [place] 00 times a Medical day. Branch E11.9. Brand per insurance. Uses ACCU-CHEK machine blood sugar 2023-0 Yes [id number] Check U nivers diagnostic 6-07 blood ity of strip 00:00: sugar 2 [place] 00 times a Medical day. Branch E11.9. Brand per insurance. Uses ACCU-CHEK machine blood sugar 2023-0 Yes [id number] Check U nivers diagnostic 6-07 blood ity of strip 00:00: sugar 2 [place] 00 times a Medical day. Branch E11.9. Brand per insurance. Uses ACCU-CHEK machine blood sugar 2023-0 Yes [id number] Check U nivers diagnostic 6-07 blood ity of strip 00:00: sugar 2 [place] 00 times a Medical day. Branch E11.9. Brand per insurance. Uses ACCU-CHEK machine blood sugar 2023-0 Yes [id number] Check U nivers diagnostic 6-07 blood ity of strip 00:00: sugar 2 [place] 00 times a Medical day. Branch E11.9. Brand per insurance. Uses ACCU-CHEK machine blood sugar 2023-0 Yes [id number] Check U nivers diagnostic 6-07 blood ity of strip 00:00: sugar 2 [place] 00 times a Medical day. Branch E11.9. Brand per insurance. Uses ACCU-CHEK machine blood sugar 2023-0 Yes [id number] Check U nivers diagnostic 6-07 blood ity of strip 00:00: sugar 2 [place] 00 times a Medical day. Branch E11.9. Brand per insurance. Uses ACCU-CHEK machine blood sugar 2023-0 Yes [id number] Check U nivers diagnostic 6-07 blood ity of strip 00:00: sugar 2 [place] 00 times a Medical day. Branch E11.9. Brand per insurance. Uses ACCU-CHEK machine blood sugar 2023-0 Yes [id number] Check U nivers diagnostic 6-07 blood ity of strip 00:00: sugar 2 [place] 00 times a Medical day. Branch E11.9. Brand per insurance. Uses ACCU-CHEK machine blood sugar 2023-0 Yes [id number] Check U nivers diagnostic 6-07 blood ity of strip 00:00: sugar 2 [place] 00 times a Medical day. Branch E11.9. Brand per insurance. Uses ACCU-CHEK machine metFORMIN 2023-0 2023- No 500mg Take 1 Univ ers 500 mg 6-03 07-19 tablet by ity of tablet 00:00: 00:00 mouth in [place] 00 :00 the Medical morning Branch and 1 tablet in the evening. Take with meals. metFORMIN 2022-0 2022- No 500mg Take 1 Univ ers 500 mg 09-21 tablet by ity of tablet 00:00: 00:00 mouth in [place] 00 :00 the [facility] morning Branch and 1 tablet in the evening. Take with meals. divalproex 2022-0 2023- No 500mg Take 1 Uni vers ER 500 mg 5-25 05-25 tablet by ity of 24 hr 14:14: 00:00 mouth [place] tablet 51 :00 every 24 Medical (twenty-fo [place] ur) hours. divalproex 2022-0 2022- No 500mg Take 1 Uni vers ER 500 mg 5-25 05-25 tablet by ity of 24 hr 14:14: 00:00 mouth [place] tablet 51 :00 every 24 Medical (twenty-fo [place] ur) hours. SERTraline 2022-0 2022- No 25mg Take 1 Univ ers 25 mg 5-25 05-25 tablet by ity of tablet 14:13: 00:00 mouth in [place] 30 :00 the Medical morning. Branch SERTraline 2022-0 2023- No 25mg Take 1 Univ ers 25 mg 5-25 05-25 tablet by ity of tablet 14:13: 00:00 mouth in [place] 30 :00 the Medical morning. Branch SEMGLEE,INS 2022-0 Yes 14U inject 14 U nivers ULIN 5-25 Units ity of GLARGINE-YF 14:08: under the [place] , [place] 13 skin in [facility] morning. As directed SEMGLEE,INS 2022-0 Yes 14U inject 14 U nivers ULIN 5-25 Units ity of GLARGINE-YF 14:08: under the [place] skin in [facility] morning. As directed SEMGLEE,INS 2022-0 Yes 14U inject 14 U nivers ULIN 5-25 Units ity of GLARGINE-YF 14:08: under the [place] skin in [facility] morning. As directed SEMGLEE,INS 2022-0 Yes 14U inject 14 U nivers ULIN 5-25 Units ity of GLARGINE-YF 14:08: under the [place] skin in Medical the Branch morning. As directed SEMGLEE,INS 2023-0 Yes 14U inject 14 U nivers ULIN 5-25 Units ity of GLARGINE-YF 14:08: under the [place] skin in [facility] the Branch morning. As directed SEMGLEE,INS 2023-0 Yes 14U inject 14 U nivers ULIN 5-25 Units ity of GLARGINE-YF 14:08: under the [place] skin in [facility] the Branch morning. As directed SEMGLEE,INS 2023-0 Yes 14U inject 14 U nivers ULIN 5-25 Units ity of GLARGINE-YF 14:08: under the [place] skin in [facility] the Branch morning. As directed SEMGLEE,INS 3-0 Yes 14U inject 14 U nivers ULIN 5-25 Units ity of GLARGINE-YF 14:08: under the [place] skin in [facility] the Branch morning. As directed SEMGLEE,INS 3-0 Yes 14U inject 14 U nivers ULIN 5-25 Units ity of GLARGINE-YF 14:08: under the [place] skin in [facility] the Branch morning. As directed SEMGLEE,INS 3-0 Yes 14U inject 14 U nivers ULIN 5-25 Units ity of GLARGINE-YF 14:08: under the [place] skin in [facility] the Branch morning. As directed SEMGLEE,INS 2023-0 Yes 14U inject 14 U nivers ULIN 5-25 Units ity of GLARGINE-YF 14:08: under the [place] skin in [facility] the Branch morning. As directed SEMGLEE,INS 2023-0 Yes 14U inject 14 U nivers ULIN 5-25 Units ity of GLARGINE-YF 14:08: under the [place] skin in [facility] the Branch morning. As directed SEMGLEE,INS 2023-0 Yes 14U inject 14 U nivers ULIN 5-25 Units ity of GLARGINE-YF 14:08: under the [place] skin in [facility] the [place] morning. As directed SEMGLEE,INS 2022-0 Yes 14U inject 14 U nivers ULIN 5-25 Units ity of GLARGINE-YF 14:08: under the [facility], [place] 13 skin in [facility] the [place] morning. As directed SEMGLEE,INS 2022-0 Yes 14U inject 14 U nivers ULIN 5-25 Units ity of GLARGINE-YF 14:08: under the [facility], [place] 13 skin in [facility] the [place] morning. As directed SEMGLEE,INS 2022-0 Yes 14U inject 14 U nivers ULIN 5-25 Units ity of GLARGINE-YF 14:08: [facility] [place] [facility] in [facility] the [place] . As directed SEMGLEE,INS 2022-0 Yes 14U inject 14 U nivers ULIN 5-25 Units ity of GLARGINE-YF 14:08: under the [facility], [place] 13 skin in [facility] . As directed SEMGLEE,INS 2022-0 Yes 14U inject 14 U nivers ULIN 5-25 Units ity of GLARGINE-YF 14:08: under the [facility], [place] 13 skin in [facility] the [place] . As directed SEMGLEE,INS 2022-0 Yes 14U inject 14 U nivers ULIN 5-25 Units ity of GLARGINE-YF 14:08: under the [facility] [place] 13 skin in [facility] . As directed SERTraline Yes [id number] 25mg Take 1 [facility] 25 mg 5-25 tablet by ity of tablet 00:00: mouth in [place] the morning. [place] SERTraline Yes [id number] 100mg Take 1 [facility] 100 mg 5-25 tablet by ity of tablet 00:00: mouth in [place] the morning. [place] divalproex 0 Yes [id number] 500mg Take 1 [facility] ER 500 mg 5-25 tablet by ity o f 24 hr 00:00: mouth [place] tablet 00 every 24 Medical (twenty-fo [place] ur) hours. Bifidobacte 2022-0 Yes [id number] 4mg Take 1 [facility] rium 5-25 capsule by ity of Infantis 00:00: mouth in [place] (ALIGN) 4 00 the Medical mg capsule morning. Branc h SERTraline 2023-0 Yes [id number] 25mg Take 1 [facility] 25 mg 5-25 tablet by ity of tablet 00:00: mouth in [place] 00 the Medical morning. Branch SERTraline 2023-0 Yes [id number] 100mg Take 1 [facility] 100 mg 5-25 tablet by ity of tablet 00:00: mouth in [place] 00 the Medical morning. Branch divalproex 2023-0 Yes [id number] 500mg Take 1 [facility] ER 500 mg 5-25 tablet by ity o f 24 hr 00:00: mouth [place] tablet 00 every 24 Medical (twenty-fo Branch ur) hours. Bifidobacte 2023-0 Yes [id number] 4mg Take 1 [facility] rium 5-25 capsule by ity of Infantis 00:00: mouth in [place] (ALIGN) 4 00 the Medical mg capsule morning. Branc h SERTraline 2023-0 Yes [id number] 25mg Take 1 [facility] 25 mg 5-25 tablet by ity of tablet 00:00: mouth in [place] 00 the Medical morning. Branch SERTraline 2023-0 Yes [id number] 100mg Take 1 [facility] 100 mg 5-25 tablet by ity of tablet 00:00: mouth in [place] 00 the Medical morning. Branch divalproex 2023-0 Yes [id number] 500mg Take 1 [facility] ER 500 mg 5-25 tablet by ity o f 24 hr 00:00: mouth [place] tablet 00 every 24 Medical (twenty-fo [place] ur) hours. Bifidobacte 2023-0 Yes [id number] 4mg Take 1 [facility] rium 5-25 capsule by ity of Infantis 00:00: mouth in [place] (ALIGN) 4 00 the Medical mg capsule morning. Branc h SERTraline 2023-0 Yes [id number] 25mg Take 1 [facility] 25 mg 5-25 tablet by ity of tablet 00:00: mouth in [place] 00 the Medical morning. Branch SERTraline 2023-0 Yes [id number] 100mg Take 1 [facility] 100 mg 5-25 tablet by ity of tablet 00:00: mouth in [place] 00 the Medical morning. Branch divalproex 2023-0 Yes [id number] 500mg Take 1 [facility] ER 500 mg 5-25 tablet by ity o f 24 hr 00:00: mouth [place] tablet 00 every 24 Medical ( [place] ur) hours. Bifidobacte 2023-0 Yes [id number] 4mg Take 1 [facility] rium 5-25 capsule by ity of Infantis 00:00: mouth in [place] (ALIGN) 4 00 the Medical mg capsule morning. Branc h SERTraline 2023-0 Yes [id number] 25mg Take 1 [facility] 25 mg 5-25 tablet by ity of tablet 00:00: mouth in [place] 00 the Medical morning. Branch SERTraline 2023-0 Yes [id number] 100mg Take 1 [facility] 100 mg 5-25 tablet by ity of tablet 00:00: mouth in [place] 00 the Medical morning. Branch divalproex 2023-0 Yes [id number] 500mg Take 1 [facility] ER 500 mg 5-25 tablet by ity o f 24 hr 00:00: mouth [place] tablet 00 every 24 Medical ( [place] ur) hours. Bifidobacte 2023-0 Yes [id number] 4mg Take 1 [facility] rium 5-25 capsule by ity of Infantis 00:00: mouth in [place] (ALIGN) 4 00 the Medical mg capsule morning. Branc h SERTraline 2023-0 Yes [id number] 25mg Take 1 [facility] 25 mg 5-25 tablet by ity of tablet 00:00: mouth in [place] 00 the Medical morning. Branch SERTraline 2023-0 Yes [id number] 100mg Take 1 [facility] 100 mg 5-25 tablet by ity of tablet 00:00: mouth in [place] 00 the Medical morning. Branch divalproex 2023-0 Yes [id number] 500mg Take 1 [facility] ER 500 mg 5-25 tablet by ity o f 24 hr 00:00: mouth [place] tablet 00 every 24 Medical (twenty- [place] ur) hours. Bifidobacte 2023-0 Yes [id number] 4mg Take 1 [facility] rium 5-25 capsule by ity of Infantis 00:00: mouth in [place] (ALIGN) 4 00 the Medical mg capsule morning. Branc h SERTraline 2023-0 Yes [id number] 25mg Take 1 [facility] 25 mg 5-25 tablet by ity of tablet 00:00: mouth in [place] 00 the Medical morning. Branch SERTraline 2023-0 Yes [id number] 100mg Take 1 [facility] 100 mg 5-25 tablet by ity of tablet 00:00: mouth in [place] 00 the Medical morning. Branch divalproex 2023-0 Yes [id number] 500mg Take 1 [facility] ER 500 mg 5-25 tablet by ity o f 24 hr 00:00: mouth [place] tablet 00 every 24 Medical (twenty- [place] ur) hours. Bifidobacte 2023-0 Yes [id number] 4mg Take 1 [facility] rium 5-25 capsule by ity of Infantis 00:00: mouth in [place] (ALIGN) 4 00 the Medical mg capsule morning. Branc h SERTraline 2023-0 Yes [id number] 25mg Take 1 [facility] 25 mg 5-25 tablet by ity of tablet 00:00: mouth in [place] 00 the Medical morning. Branch SERTraline 2023-0 Yes [id number] 100mg Take 1 [facility] 100 mg 5-25 tablet by ity of tablet 00:00: mouth in [place] 00 the Medical morning. Branch divalproex 2023-0 Yes [id number] 500mg Take 1 [facility] ER 500 mg 5-25 tablet by ity o f 24 hr 00:00: mouth [place] tablet 00 every 24 Medical (twenty-fo [place] ur) hours. Bifidobacte 2023-0 Yes [id number] 4mg Take 1 [facility] rium 5-25 capsule by ity of Infantis 00:00: mouth in [place] (ALIGN) 4 00 the Medical mg capsule morning. Branc h SERTraline 2023-0 Yes [id number] 25mg Take 1 [facility] 25 mg 5-25 tablet by ity of tablet 00:00: mouth in [place] 00 the Medical morning. Branch SERTraline 2023-0 Yes [id number] 100mg Take 1 [facility] 100 mg 5-25 tablet by ity of tablet 00:00: mouth in [place] 00 the Medical morning. Branch divalproex 2023-0 Yes [id number] 500mg Take 1 [facility] ER 500 mg 5-25 tablet by ity o f 24 hr 00:00: mouth [place] tablet 00 every 24 Medical (twenty-fo [place] ur) hours. Bifidobacte 2023-0 Yes [id number] 4mg Take 1 [facility] rium 5-25 capsule by ity of Infantis 00:00: mouth in [place] (ALIGN) 4 00 the Medical mg capsule morning. Branc h SERTraline 2023-0 Yes [id number] 25mg Take 1 [facility] 25 mg 5-25 tablet by ity of tablet 00:00: mouth in [place] 00 the Medical morning. Branch SERTraline 2023-0 Yes [id number] 100mg Take 1 [facility] 100 mg 5-25 tablet by ity of tablet 00:00: mouth in [place] 00 the Medical morning. Branch Bifidobacte 2023-0 Yes [id number] 4mg Take 1 [facility] rium 5-25 capsule by ity of Infantis 00:00: mouth in [place] (ALIGN) 4 00 the Medical mg capsule morning. Branc h SERTraline 2023-0 Yes [id number] 25mg Take 1 [facility] 25 mg 5-25 tablet by ity of tablet 00:00: mouth in [place] 00 the Medical morning. Branch SERTraline 2023-0 Yes [id number] 100mg Take 1 [facility] 100 mg 5-25 tablet by ity of tablet 00:00: mouth in [place] 00 the Medical morning. Branch Bifidobacte 2023-0 Yes [id number] 4mg Take 1 [facility] rium 5-25 capsule by ity of Infantis 00:00: mouth in [place] (ALIGN) 4 00 the Medical mg capsule morning. Branc h SERTraline 2023-0 Yes [id number] 25mg Take 1 [facility] 25 mg 5-25 tablet by ity of tablet 00:00: mouth in [place] 00 the Medical morning. Branch Bifidobacte 2023-0 Yes [id number] 4mg Take 1 [facility] rium 5-25 capsule by ity of Infantis 00:00: mouth in [place] (ALIGN) 4 00 the Medical mg capsule morning. Branc h SERTraline 2023-0 Yes [id number] 25mg Take 1 [facility] 25 mg 5-25 tablet by ity of tablet 00:00: mouth in [place] 00 the Medical morning. Branch Bifidobacte 2023-0 Yes [id number] 4mg Take 1 [facility] rium 5-25 capsule by ity of Infantis 00:00: mouth in [place] (ALIGN) 4 00 the Medical mg capsule morning. Branc h SERTraline 2023-0 Yes [id number] 25mg Take 1 [facility] 25 mg 5-25 tablet by ity of tablet 00:00: mouth in [place] 00 the Medical morning. Branch Bifidobacte 2023-0 Yes [id number] 4mg Take 1 [facility] rium 5-25 capsule by ity of Infantis 00:00: mouth in [place] (ALIGN) 4 00 the Medical mg capsule morning. Branc h SERTraline 2023-0 Yes [id number] 25mg Take 1 [facility] 25 mg 5-25 tablet by ity of tablet 00:00: mouth in [place] 00 the Medical morning. Branch Bifidobacte 2023-0 Yes [id number] 4mg Take 1 [facility] rium 5-25 capsule by ity of Infantis 00:00: mouth in [place] (ALIGN) 4 00 the Medical mg capsule morning. Branc h SERTraline 2023-0 Yes [id number] 25mg Take 1 [facility] 25 mg 5-25 tablet by ity of tablet 00:00: mouth in [place] 00 the Medical morning. Branch Bifidobacte 2023-0 Yes [id number] 4mg Take 1 [facility] rium 5-25 capsule by ity of Infantis 00:00: mouth in [place] (ALIGN) 4 00 the Medical mg capsule morning. Branc h SERTraline 2023-0 Yes [id number] 25mg Take 1 [facility] 25 mg 5-25 tablet by ity of tablet 00:00: mouth in [place] 00 the Medical morning. Branch SERTraline 2023-0 Yes [id number] 100mg Take 1 [facility] 100 mg 5-25 tablet by ity of tablet 00:00: mouth in [place] 00 the Medical morning. Branch divalproex 2023-0 Yes [id number] 500mg Take 1 [facility] ER 500 mg 5-25 tablet by ity o f 24 hr 00:00: mouth [place] tablet 00 every 24 Medical (twenty-fo Branch ur) hours. Bifidobacte 2023-0 Yes [id number] 4mg Take 1 [facility] rium 5-25 capsule by ity of Infantis 00:00: mouth in [place] (ALIGN) 4 00 the Medical mg capsule morning. Branc h SERTraline 2023-0 Yes [id number] 25mg Take 1 [facility] 25 mg 5-25 tablet by ity of tablet 00:00: mouth in [place] 00 the Medical morning. Branch SERTraline 2023-0 Yes [id number] 100mg Take 1 [facility] 100 mg 5-25 tablet by ity of tablet 00:00: mouth in [place] 00 the Medical morning. Branch divalproex 2023-0 Yes [id number] 500mg Take 1 [facility] ER 500 mg 5-25 tablet by ity o f 24 hr 00:00: mouth [place] tablet 00 every 24 Medical (twenty-fo Branch ur) hours. Bifidobacte 2023-0 Yes [id number] 4mg Take 1 [facility] rium 5-25 capsule by ity of Infantis 00:00: mouth in [place] (ALIGN) 4 00 the Medical mg capsule morning. Branc h SERTraline 2023-0 Yes [id number] 25mg Take 1 [facility] 25 mg 5-25 tablet by ity of tablet 00:00: mouth in [place] 00 the Medical morning. Branch SERTraline 2023-0 Yes [id number] 100mg Take 1 [facility] 100 mg 5-25 tablet by ity of tablet 00:00: mouth in [place] 00 the Medical morning. Branch divalproex 2023-0 Yes [id number] 500mg Take 1 [facility] ER 500 mg 5-25 tablet by ity o f 24 hr 00:00: mouth [place] tablet 00 every 24 Medical ( [place] ur) hours. Bifidobacte 2023-0 Yes [id number] 4mg Take 1 [facility] rium 5-25 capsule by ity of Infantis 00:00: mouth in [place] (ALIGN) 4 00 the Medical mg capsule morning. Branc h SERTraline 2023-0 Yes [id number] 25mg Take 1 [facility] 25 mg 5-25 tablet by ity of tablet 00:00: mouth in [place] 00 the Medical morning. Branch SERTraline 2023-0 Yes [id number] 100mg Take 1 [facility] 100 mg 5-25 tablet by ity of tablet 00:00: mouth in [place] 00 the Medical morning. Branch divalproex 2023-0 Yes [id number] 500mg Take 1 [facility] ER 500 mg 5-25 tablet by ity o f 24 hr 00:00: mouth [place] tablet 00 every 24 Medical ( [place] ur) hours. Bifidobacte 2023-0 Yes [id number] 4mg Take 1 [facility] rium 5-25 capsule by ity of Infantis 00:00: mouth in [place] (ALIGN) 4 00 the Medical mg capsule morning. Branc h SERTraline 2023-0 Yes [id number] 25mg Take 1 [facility] 25 mg 5-25 tablet by ity of tablet 00:00: mouth in [place] 00 the Medical morning. Branch SERTraline 2023-0 Yes [id number] 100mg Take 1 [facility] 100 mg 5-25 tablet by ity of tablet 00:00: mouth in [place] 00 the Medical morning. Branch divalproex 3-0 Yes [id number] 500mg Take 1 [facility] ER 500 mg 5-25 tablet by ity o f 24 hr 00:00: mouth [place] tablet 00 every 24 Medical ([facility] ur) hours. Bifidobacte 3-0 Yes [id number] 4mg Take 1 [facility] rium 5-25 capsule by ity of Infantis 00:00: mouth in [place] (ALIGN) 4 00 the Medical mg capsule morning. Bran h SERTraline 2022-0 Yes [id number] 25mg Take 1 [facility] 25 mg 5-25 tablet by ity of tablet 00:00: mouth in [place] 00 the Medical morning. Branch SERTraline 2022-0 Yes [id number] 100mg Take 1 [facility] 100 mg 5-25 tablet by ity of tablet 00:00: mouth in [place] 00 the Medical morning. Branch divalproex 2022-0 Yes [id number] 500mg Take 1 [facility] ER 500 mg 5-25 tablet by ity o f 24 hr 00:00: mouth [place] tablet 00 every 24 Medical (- [place] ur) hours. Bifidobacte 2022-0 Yes [id number] 4mg Take 1 [facility] rium 5-25 capsule by ity of Infantis 00:00: mouth in [place] (ALIGN) 4 00 the Medical mg capsule morning. Bran h gabapentin 2022-0 2022- Yes [id number] 400mg Take 1 [facility] 400 mg 5-25 08-24 capsule by ity of capsule 00:00: 04:59 mouth in [place] 00 :00 the Medical morning Branch and 1 capsule at noon and 1 capsule in the evening. Do all this for 90 days. gabapentin 2022-0 2022- Yes [id number] 400mg Take 1 [facility] 400 mg 5-25 08-24 capsule by ity of capsule 00:00: 04:59 mouth in [place] 00 :00 the Medical morning Branch and 1 capsule at noon and 1 capsule in the evening. Do all this for 90 days. gabapentin 2022-0 2022- Yes [id number] 400mg Take 1 [facility] 400 mg 5-25 08-24 capsule by ity of capsule 00:00: 04:59 mouth in [place] 00 :00 the Medical morning Branch and 1 capsule at noon and 1 capsule in the evening. Do all this for 90 days. gabapentin 2023-0 202- Yes [id number] 400mg Take 1 [facility] 400 mg 5-25 08-24 capsule by ity of capsule 00:00: 04:59 mouth in [place] 00 :00 the [facility] and 1 capsule at noon and 1 capsule in the evening. Do all this for 90 days. gabapentin 2022-0 2022- Yes [id number] 400mg Take 1 [facility] 400 mg 5-25 08-24 capsule by ity of capsule 00:00: 04:59 mouth in [place] 00 :00 [facility] and 1 capsule at noon and 1 capsule in the evening. Do all this for 90 days. gabapentin 2022-0 2022- Yes [id number] 400mg Take 1 [facility] 400 mg 5-25 08-24 capsule by ity of capsule 00:00: 04:59 mouth in [place] 00 :00 [facility] and 1 capsule at noon and 1 capsule in the evening. Do all this for 90 days. gabapentin 2022-2022- Yes [id number] 400mg Take 1 [facility] 400 mg 5-25 08-24 capsule by ity of capsule 00:00: 04:59 mouth in [place] 00 :00 [facility] and 1 capsule at noon and 1 capsule in the evening. Do all this for 90 days. gabapentin 2022-0 2022- Yes [id number] 400mg Take 1 [facility] 400 mg 5-25 08-24 capsule by ity of capsule 00:00: 04:59 mouth in [place] 00 :00 [facility] and 1 capsule at noon and 1 capsule in the evening. Do all this for 90 days. gabapentin 2022-0 2022- Yes [id number] 400mg Take 1 [facility] 400 mg 5-25 08-24 capsule by ity of capsule 00:00: 04:59 mouth in [place] 00 :00 [facility] and 1 capsule at noon and 1 capsule in the evening. Do all this for 90 days. gabapentin 2022-0 2022- Yes [id number] 400mg Take 1 [facility] 400 mg 5-25 08-24 capsule by ity of capsule 00:00: 04:59 mouth in [place] 00 :00 [facility] and 1 capsule at noon and 1 capsule in the evening. Do all this for 90 days. gabapentin 2022-0 202- Yes [id number] 400mg Take 1 [facility] 400 mg 5-25 08-24 capsule by ity of capsule 00:00: 04:59 mouth in [place] 00 :00 [facility] morning [place] and 1 capsule at noon and 1 capsule in the evening. Do all this for 90 days. gabapentin 202-0 202- Yes [id number] 400mg Take 1 [facility] 400 mg 5-25 08-24 capsule by ity of capsule 00:00: 04:59 mouth in [place] 00 :00 [facility] and 1 capsule at noon and 1 capsule in the evening. Do all this for 90 days. gabapentin 2022-0 202- Yes [id number] 400mg Take 1 [facility] 400 mg 5-25 08-24 capsule by ity of capsule 00:00: 04:59 mouth in [place] 00 :00 [facility] and 1 capsule at noon and 1 capsule in the evening. Do all this for 90 days. gabapentin 2022-0 2022- Yes [id number] 400mg Take 1 [facility] 400 mg 5-25 08-24 capsule by ity of capsule 00:00: 04:59 mouth in [place] 00 :00 [facility] and 1 capsule at noon and 1 capsule in the evening. Do all this for 90 days. gabapentin 2022-0 202- Yes [id number] 400mg Take 1 [facility] 400 mg 5-25 08-24 capsule by ity of capsule 00:00: 04:59 mouth in [place] 00 :00 [facility] and 1 capsule at noon and 1 capsule in the evening. Do all this for 90 days. gabapentin 2022-0 202- Yes [id number] 400mg Take 1 [facility] 400 mg 5-25 08-24 capsule by ity of capsule 00:00: 04:59 mouth in [place] 00 :00 [facility] and 1 capsule at noon and 1 capsule in the evening. Do all this for 90 days. gabapentin 2022-0 202- Yes [id number] 400mg Take 1 [facility] 400 mg 5-25 08-24 capsule by ity of capsule 00:00: 04:59 mouth in [place] 00 :00 [facility] and 1 capsule at noon and 1 capsule in the evening. Do all this for 90 days. gabapentin 202-0 2023- Yes [id number] 400mg Take 1 [facility] 400 mg 5-25 08-24 capsule by ity of capsule 00:00: 04:59 mouth in [place] 00 :00 the [facility] morning [place] and 1 capsule at noon and 1 capsule in the evening. Do all this for 90 days. gabapentin 2022- 202- Yes [id number] 400mg Take 1 [facility] 400 mg 5-25 08-24 capsule by ity of capsule 00:00: 04:59 mouth in [place] 00 :00 the Medical morning [place] and 1 capsule at noon and 1 capsule in the evening. Do all this for 90 days. gabapentin 2022-2022- Yes [id number] 400mg Take 1 [facility] 400 mg 5-25 08-24 capsule by ity of capsule 00:00: 04:59 mouth in [place] 00 :00 the [facility] morning [place] and 1 capsule at noon and 1 capsule in the evening. Do all this for 90 days. gabapentin 2022-2022- Yes [id number] 400mg Take 1 [facility] 400 mg 5-25 08-24 capsule by ity of capsule 00:00: 04:59 mouth in [place] 00 :00 the [facility] and 1 capsule at noon and 1 capsule in the evening. Do all this for 90 days. gabapentin 2022-2022- Yes [id number] 400mg Take 1 [facility] 400 mg 5-25 08-24 capsule by ity of capsule 00:00: 04:59 mouth in [place] 00 :00 the [facility] and 1 capsule at noon and 1 capsule in the evening. Do all this for 90 days. gabapentin 2022-2022- No [id number] 400mg Take 1 [facility] 400 mg 5-25 08-18 capsule by ity of capsule 00:00: 00:00 mouth in [place] 00 :00 the [facility] and 1 capsule at noon and 1 capsule in the evening. Do all this for 90 days. SERTraline 2022-2022- No [id number] 25mg Take 1 [facility] 25 mg 5-25 08-18 tablet by ity of tablet 00:00: 00:00 mouth in [place] 00 :00 the Medical morning. Branch Bifidobacte 2022-0 2022- No [id number] 4mg Take 1 [facility] rium 5-25 08-18 capsule by ity of Infantis 00:00: 00:00 mouth in [facility] (ALIGN) 4 00 :00 the Medical mg capsule morning. Bran h gabapentin 2022-2022- No [id number] 400mg Take 1 [facility] 400 mg 5-25 08-18 capsule by ity of capsule 00:00: 00:00 mouth in [place] 00 :00 the Medical morning Branch and 1 capsule at noon and 1 capsule in the evening. Do all this for 90 days. SERTraline 2022- No [id number] 25mg Take 1 [facility] 25 mg 5-25 08-18 tablet by ity of tablet 00:00: 00:00 mouth in [place] 00 :00 the Medical morning. Branch Bifidobacte 2022- No [id number] 4mg Take 1 [facility] rium 5-25 08-18 capsule by ity of Infantis 00:00: 00:00 mouth in [facility] s (ALIGN) 4 00 :00 the Medical mg capsule morning. [facility] SERTraline 2022-2022- No [id number] 100mg Take 1 [facility] 100 mg 5-25 07-19 tablet by ity of tablet 00:00: 00:00 mouth in [place] 00 :00 the Medical morning. Branch SERTraline 2022- No [id number] 100mg Take 1 [facility] 100 mg 5-25 07-19 tablet by ity of tablet 00:00: 00:00 mouth in [place] 00 :00 the Medical morning. Branch SERTraline 2022- No [id number] 100mg Take 1 [facility] 100 mg 5-25 07-19 tablet by ity of tablet 00:00: 00:00 mouth in [place] 00 :00 the Medical morning. Branch SERTraline 2022- No [id number] 100mg Take 1 [facility] 100 mg 5-25 07-19 tablet by ity of tablet 00:00: 00:00 mouth in [place] 00 :00 the Medical morning. Branch divalproex 2022- No [id number] 500mg Take 1 [facility] ER 500 mg 5-25 06-30 tablet by ity of 24 hr 00:00: 00:00 mouth [place] tablet 00 :00 every 24 Medical (twenty-fo Branch ur) hours. Miscellaneo Yes Bilateral U nivers us Medical 09-10 prosthetic ity of Supply Misc 10:46: s [...] in ity o f ets 10:46: the [place] (ACCU-CHEK 19 morning Medica l SOFT DEV and 1 Each Branc h LANCETS at noon MIS) and 1 Each in the evening. Miscellaneo 2022-0 Yes Bilateral U nivers Medical 5-23 prosthetic [facility] [place] [facility] [place]: [place] - [facility] [place] 19 Medical Branch lancing 0 Yes 1{each} Take 1 Unive rs device/lanc 5-23 Each in ity o ets 10:46: the [place] (ACCU-CHEK 19 morning Medica l SOFT DEV and 1 Each Branc h LANCETS at noon MIS) and 1 Each in the evening. Miscellaneo 2022-0 Yes Bilateral U nivers Medical 5-23 prosthetic [facility] [place] [facility] [place]: s - [facility] [place] 19 Medical Branch lancing 0 Yes 1{each} Take 1 Unive rs device/lanc 5-23 Each in ity [facility] ets 10:46: the [place] (ACCU-CHEK 19 morning Medica l SOFT DEV and 1 Each Branc h LANCETS at on [facility]) and 1 Each in the evening. SERTraline 2022-0 Yes [id number] 100mg Take 1 [facility] 100 mg 5-19 tablet by ity of tablet 00:00: mouth in [place] 00 the Medical morning. Branch SERTraline 2022-0 Yes [id number] 100mg Take 1 [facility] 100 mg 5-19 tablet by ity of tablet 00:00: mouth in [place] 00 the Medical morning. Branch SERTraline 3-0 Yes [id number] 100mg Take 1 [facility] 100 mg 5-19 tablet by ity of tablet 00:00: mouth in [place] 00 the Medical morning. Branch SERTraline 3-0 2023- No [id number] 100mg Take 1 [facility] 100 mg 5-19 05-25 tablet by ity of tablet 00:00: 00:00 mouth in [place] 00 :00 the Medical morning. Branch SERTraline 2023-0 2023- No [id number] 100mg Take 1 [facility] 100 mg 5-19 05-25 tablet by ity of tablet 00:00: 00:00 mouth in [place] 00 :00 the Medical morning. Branch SERTraline 2023-0 2023- No [id number] 100mg Take 1 [facility] 100 mg 5-19 05-25 tablet by ity of tablet 00:00: 00:00 mouth in [place] 00 :00 the Medical morning. Branch SERTraline 0 2022- No [id number] 100mg Take 1 [facility] 100 mg 5-19 05-25 tablet by ity of tablet 00:00: 00:00 mouth in [place] 00 :00 the Medical morning. Branch blood sugar 0 Yes [id number] Check U nivers diagnostic 5-18 blood ity of strip 00:00: sugar 2 [place] 00 times a Medical day. Branch E11.9. Brand per insurance. Uses ACCU-CHEK machine Lancets 0 Yes [id number] Check Unive rs Misc 5-18 blood ity of 00:00: sugar 2 [place] times a Medical day. Branch E11.9. Brand per insurance. amiodarone Yes [id number] 200mg Take 1 Univers 200 mg 5-18 tablet by ity of tablet 00:00: mouth in [place] 00 the Medical morning. Branch apixaban 5 0 Yes 5mg Take 1 Unive rs mg tablet 5-18 tablet by ity o f 00:00: mouth in [place] 00 the Medical morning Branch and 1 tablet in the evening. Indication s: ATRIAL FIBRILLATI ON atorvastati Yes [id number] 40mg Take 1 Univers n 40 mg 5-18 tablet by ity of tablet 00:00: mouth at [place] 00 bedtime. Medical Branch lisinopriL 0 Yes [id number] 2.5mg Take 1 Univers 2.5 mg 5-18 tablet by ity of tablet 00:00: mouth in [place] 00 the Medical morning. Branch metoprolol 0 Yes [id number] 25mg Take 1 U nivers tartrate 25 5-18 tablet by ity of mg tablet 00:00: mouth in [place] [facility] 00 the Medical morning Branch and 1 tablet in the evening. blood sugar 0 Yes [id number] Check U nivers diagnostic 5-18 blood ity of strip 00:00: sugar 2 [place] 00 times a Medical day. Branch E11.9. Brand per insurance. Uses ACCU-CHEK machine Lancets 2022-0 Yes [id number] Check Unive rs Misc 5-18 blood ity of 00:00: sugar 2 [place] 00 times a Medical day. Branch E11.9. Brand per insurance. amiodarone Yes [id number] 200mg Take 1 Univers 200 mg 5-18 tablet by ity of tablet 00:00: mouth in [place] 00 the morning. Branch apixaban 5 2022-0 Yes 5mg Take 1 Unive rs mg tablet 5-18 tablet by ity o f 00:00: mouth in [place] 00 the morning Branch and 1 tablet in the evening. Indication s: ATRIAL FIBRILLATI ON atorvastati 2022-0 Yes [id number] 40mg Take 1 Univers n 40 mg 5-18 tablet by ity of tablet 00:00: mouth at [place] 00 bedtime. Medical Branch lisinopriL 0 Yes [id number] 2.5mg Take 1 Univers 2.5 mg 5-18 tablet by ity of tablet 00:00: mouth in [place] 00 the morning. Branch metoprolol Yes [id number] 25mg Take 1 U nivers tartrate 25 5-18 tablet by ity of mg tablet 00:00: mouth in [place] [facility] the morning Branch and 1 tablet in the evening. blood sugar Yes [id number] Check U nivers diagnostic 5-18 blood ity of strip 00:00: sugar 2 [place] 00 times a Medical day. Branch E11.9. Brand per insurance. Uses ACCU-CHEK machine Lancets Yes [id number] Check Unive rs Misc 5-18 blood ity of 00:00: sugar 2 [place] 00 times a Medical day. Branch E11.9. Brand per insurance. amiodarone 0 Yes [id number] 200mg Take 1 Univers 200 mg 5-18 tablet by ity of tablet 00:00: mouth in [place] 00 the morning. Branch apixaban 5 2022-0 Yes 5mg Take 1 Unive rs mg tablet 5-18 tablet by ity o f 00:00: mouth in [place] 00 the morning Branch and 1 tablet in the evening. Indication s: ATRIAL FIBRILLATI ON atorvastati 2022-0 Yes [id number] 40mg Take 1 [facility] n 40 mg 5-18 tablet by ity of tablet 00:00: mouth at [place] [address] bedtime. Medical Branch lisinopriL 2022-0 Yes [id number] 2.5mg Take 1 [facility] 2.5 mg 5-18 tablet by ity of tablet 00:00: mouth in [place] the morning. Branch metoprolol 2022-0 Yes [id number] 25mg Take 1 U nivers tartrate 25 5-18 tablet by ity of mg tablet 00:00: mouth in [place] [facility] the morning Branch and 1 tablet in the evening. blood sugar 2022-0 Yes [id number] Check U nivers diagnostic 5-18 blood ity of strip 00:00: sugar 2 [place] 00 times a Medical day. Branch E11.9. Brand per insurance. Uses ACCU-CHEK machine Lancets 2022-0 Yes [id number] Check Unive rs Misc 5-18 blood ity of 00:00: sugar 2 [place] times a Medical day. Branch E11.9. Brand per insurance. amiodarone 2022-0 Yes [id number] 200mg Take 1 [facility] 200 mg 5-18 tablet by ity of tablet 00:00: mouth in [place] the morning. Branch apixaban 5 2022-0 Yes 5mg Take 1 Unive rs mg tablet 5-18 tablet by ity o f 00:00: mouth in [place] the morning Branch and 1 tablet in the evening. Indication s: ATRIAL FIBRILLATI ON atorvastati 0 Yes [id number] 40mg Take 1 [facility] n 40 mg 5-18 tablet by ity of tablet 00:00: mouth at [place] [address] bedtime. Medical Branch lisinopriL 0 Yes [id number] 2.5mg Take 1 [facility] 2.5 mg 5-18 tablet by ity of tablet 00:00: mouth in [place] the morning. Branch metoprolol 2022-0 Yes [id number] 25mg Take 1 U nivers tartrate 25 5-18 tablet by ity of mg tablet 00:00: mouth in [place] [facility] the morning Branch and 1 tablet in the evening. blood sugar 2022-0 Yes [id number] Check U nivers diagnostic 5-18 blood ity of strip 00:00: sugar 2 [place] 00 times a Medical day. Branch E11.9. Brand per insurance. Uses ACCU-CHEK machine Lancets 2022-0 Yes [id number] Check Unive rs Misc 5-18 blood ity of 00:00: sugar 2 [place] 00 times a Medical day. Branch E11.9. Brand per insurance. amiodarone Yes [id number] 200mg Take 1 [facility] 200 mg 5-18 tablet by ity of tablet 00:00: mouth in [place] 00 the Medical morning. Branch apixaban 5 2022-0 Yes 5mg Take 1 Un[facility] rs mg tablet 5-18 tablet by ity o f 00:00: mouth in [place] 00 the Medical morning Branch and 1 tablet in the evening. Indication s: ATRIAL FIBRILLATI ON atorvastati 2022-0 Yes [id number] 40mg Take 1 [facility] n 40 mg 5-18 tablet by ity of tablet 00:00: mouth at [place] [address] bedtime. Medical Branch lisinopriL 0 Yes [id number] 2.5mg Take 1 [facility] 2.5 mg 5-18 tablet by ity of tablet 00:00: mouth in [place] 00 the morning. Branch metoprolol Yes [id number] 25mg Take 1 U nivers tartrate 25 5-18 tablet by ity of mg tablet 00:00: mouth in [place] [facility] 00 the Medical morning Branch and 1 tablet in the evening. blood sugar Yes [id number] Check U nivers diagnostic 5-18 blood ity of strip 00:00: sugar 2 [place] 00 times a Medical day. Branch E11.9. Brand per insurance. Uses ACCU-CHEK machine Lancets Yes [id number] Check Unive rs Misc 5-18 blood ity of 00:00: sugar 2 [place] 00 times a Medical day. Branch E11.9. Brand per insurance. amiodarone 0 Yes [id number] 200mg Take 1 [facility] 200 mg 5-18 tablet by ity of tablet 00:00: mouth in [place] 00 the Medical morning. Branch apixaban 5 2022-0 Yes 5mg Take 1 Unive rs mg tablet 5-18 tablet by ity o f 00:00: mouth in [place] 00 the Medical morning Branch and 1 tablet in the evening. Indication s: ATRIAL FIBRILLATI ON atorvastati 2022-0 Yes [id number] 40mg Take 1 [facility] n 40 mg 5-18 tablet by ity of tablet 00:00: mouth at [place] [address] bedtime. Medical Branch lisinopriL 2022-0 Yes [id number] 2.5mg Take 1 [facility] 2.5 mg 5-18 tablet by ity of tablet 00:00: mouth in [place] 00 the Medical morning. Branch metoprolol 2022-0 Yes [id number] 25mg Take 1 U nivers tartrate 25 5-18 tablet by ity of mg tablet 00:00: [facility] Branch and 1 tablet in the evening. blood sugar 2022-0 Yes [id number] Check U nivers diagnostic 5-18 blood ity of strip 00:00: sugar 2 [place] 00 times a Medical day. Branch E11.9. Brand per insurance. Uses ACCU-CHEK machine Lancets 2022-0 Yes [id number] Check Unive rs Misc 5-18 blood ity of 00:00: sugar 2 [place] times a Medical day. Branch E11.9. Brand per insurance. amiodarone 0 Yes [id number] 200mg Take 1 [facility] 200 mg 5-18 tablet by ity of tablet 00:00: mouth in [place] 00 the morning. Branch apixaban 5 0 Yes 5mg Take 1 Unive rs mg tablet 5-18 tablet by ity o f 00:00: mouth in [place] 00 the morning Branch and 1 tablet in the evening. Indication s: ATRIAL FIBRILLATI ON atorvastati 0 Yes [id number] 40mg Take 1 [facility] n 40 mg 5-18 tablet by ity of tablet 00:00: mouth at [place] 00 bedtime. Medical Branch lisinopriL 0 Yes [id number] 2.5mg Take 1 [facility] 2.5 mg 5-18 tablet by ity of tablet 00:00: mouth in [place] 00 the morning. Branch metoprolol 2022-0 Yes [id number] 25mg Take 1 U nivers tartrate 25 5-18 tablet by ity of mg tablet 00:00: mouth in [facility] 00 the morning Branch and 1 tablet in the evening. blood sugar 2022-0 Yes [id number] Check U nivers diagnostic 5-18 blood ity of strip 00:00: sugar 2 [place] 00 times a Medical day. Branch E11.9. Brand per insurance. Uses ACCU-CHEK machine Lancets 2022-0 Yes [id number] Check Unive rs Misc 5-18 blood ity of 00:00: sugar 2 [place] 00 times a Medical day. Branch E11.9. Brand per insurance. amiodarone 2022-0 Yes [id number] 200mg Take 1 [facility] 200 mg 5-18 tablet by ity of tablet 00:00: mouth in [place] 00 the Medical morning. Branch apixaban 5 2022-0 Yes 5mg Take 1 Unive rs mg tablet 5-18 tablet by ity o f 00:00: mouth in [place] 00 the Medical morning Branch and 1 tablet in the evening. Indication s: ATRIAL FIBRILLATI ON atorvastati 2022-0 Yes [id number] 40mg Take 1 [facility] n 40 mg 5-18 tablet by ity of tablet 00:00: mouth at [place] 00 bedtime. Medical Branch lisinopriL 2022-0 Yes [id number] 2.5mg Take 1 [facility] 2.5 mg 5-18 tablet by ity of tablet 00:00: mouth in [place] 00 the Medical morning. Branch metoprolol 2022-0 Yes [id number] 25mg Take 1 U nivers tartrate 25 5-18 tablet by ity of mg tablet 00:00: mouth in [place] [facility] 00 the Medical morning Branch and 1 tablet in the evening. Lancets 2022-0 Yes [id number] Check Unive rs Misc 5-18 blood ity of 00:00: sugar 2 [place] 00 times a Medical day. Branch E11.9. Brand per insurance. amiodarone 2022-0 Yes [id number] 200mg Take 1 [facility] 200 mg 5-18 tablet by ity of tablet 00:00: mouth in [place] 00 the Medical morning. Branch apixaban 5 2022-0 Yes 5mg Take 1 Unive rs mg tablet 5-18 tablet by ity o f 00:00: mouth in [place] 00 the Medical morning Branch and 1 tablet in the evening. Indication s: ATRIAL FIBRILLATI ON atorvastati 2022-0 Yes [id number] 40mg Take 1 [facility] n 40 mg 5-18 tablet by ity of tablet 00:00: mouth at [place] 00 bedtime. Medical Branch lisinopriL 2022-0 Yes [id number] 2.5mg Take 1 [facility] 2.5 mg 5-18 tablet by ity of tablet 00:00: mouth in [place] 00 the Medical morning. Branch metoprolol 2022-0 Yes [id number] 25mg Take 1 U nivers tartrate 25 5-18 tablet by [facility]y of mg tablet 00:00: [place] 00 the Medical morning Branch and 1 tablet in the evening. Lancets Yes [id number] Check Unive rs Misc 5-18 blood ity of 00:00: sugar 2 [place] 00 times a Medical day. Branch E11.9. Brand per insurance. amiodarone 2022-0 Yes [id number] 200mg Take 1 [facility] 200 mg 5-18 tablet by ity of tablet 00:00: mouth in [place] 00 the Medical morning. Branch apixaban 5 2022-0 Yes 5mg Take 1 Unive rs mg tablet 5-18 tablet by ity o f 00:00: mouth in [place] 00 the Medical morning Branch and 1 tablet in the evening. Indication s: ATRIAL FIBRILLATI ON atorvastati 2022-0 Yes [id number] 40mg Take 1 [facility] n 40 mg 5-18 tablet by ity of tablet 00:00: mouth at [place] 00 bedtime. Medical Branch lisinopriL 2022- Yes [id number] 2.5mg Take 1 [facility] 2.5 mg 5-18 tablet by ity of tablet 00:00: mouth in [place] 00 the Medical morning. Branch metoprolol Yes [id number] 25mg Take 1 U nivers tartrate 25 5-18 tablet by [facility] of mg tablet 00:00: [place] the Medical morning Branch and 1 tablet in the evening. Lancets Yes [id number] Check Unive rs Misc 5-18 blood ity of 00:00: sugar 2 [place] 00 times a Medical day. Branch E11.9. Brand per insurance. amiodarone 2022-0 Yes [id number] 200mg Take 1 [facility] 200 mg 5-18 tablet by ity of tablet 00:00: mouth in [place] 00 the Medical morning. Branch apixaban 5 2022-0 Yes 5mg Take 1 Unive rs mg tablet 5-18 tablet by ity o f 00:00: mouth in [place] 00 the Medical morning Branch and 1 tablet in the evening. Indication s: ATRIAL FIBRILLATI ON atorvastati 2022-0 Yes [id number] 40mg Take 1 [facility] n 40 mg 5-18 tablet by ity of tablet 00:00: mouth at [place] 00 bedtime. Medical Branch lisinopriL 2022-0 Yes [id number] 2.5mg Take 1 [facility] 2.5 mg 5-18 tablet by ity of tablet 00:00: mouth in [place] 00 the Medical morning. Branch metoprolol 0 Yes [id number] 25mg Take 1 U nivers tartrate 25 5-18 tablet by ity of mg tablet 00:00: mouth [place] 00 the Medical morning Branch and 1 tablet in the evening. Lancets 2022-0 Yes [id number] Check Unive rs Misc 5-18 blood ity of 00:00: sugar 2 [place] 00 times a Medical day. Branch E11.9. Brand per insurance. amiodarone 2022-0 Yes [id number] 200mg Take 1 [facility] 200 mg 5-18 tablet by ity of tablet 00:00: mouth in [place] 00 the Medical morning. Branch apixaban 5 2022-0 Yes 5mg Take 1 Unive rs mg tablet 5-18 tablet by ity o f 00:00: mouth in [place] 00 the Medical morning Branch and 1 tablet in the evening. Indication s: ATRIAL FIBRILLATI ON atorvastati 0 Yes [id number] 40mg Take 1 [facility] n 40 mg 5-18 tablet by ity of tablet 00:00: mouth at [place] [address] bedtime. Medical Branch lisinopriL 2022-0 Yes [id number] 2.5mg Take 1 [facility] 2.5 mg 5-18 tablet by ity of tablet 00:00: mouth in [place] 00 the Medical morning. Branch metoprolol 0 Yes [id number] 25mg Take 1 U nivers tartrate 25 5-18 tablet by ity of mg tablet 00:00: mouth [place] 00 the Medical morning Branch and 1 tablet in the evening. Lancets 2022-0 Yes [id number] Check Unive rs Misc 5-18 blood ity of 00:00: sugar 2 [place] 00 times a Medical day. Branch E11.9. Brand per insurance. atorvastati 2022-0 Yes [id number] 40mg Take 1 [facility] n 40 mg 5-18 tablet by ity of tablet 00:00: mouth at [place] 00 bedtime. Medical Branch lisinopriL 2022-0 Yes [id number] 2.5mg Take 1 [facility] 2.5 mg 5-18 tablet by ity of tablet 00:00: mouth in [place] 00 the Medical morning. Branch metoprolol 2022-0 Yes [id number] 25mg Take 1 U nivers tartrate 25 5-18 tablet by ity of mg tablet 00:00: mouth [place] 00 the Medical morning Branch and 1 tablet in the evening. Lancets 0 Yes [id number] Check Unive rs Misc 5-18 blood ity of 00:00: sugar 2 [place] 00 times a Medical day. Branch E11.9. Brand per insurance. atorvastati 0 Yes [id number] 40mg Take 1 [facility] n 40 mg 5-18 tablet by ity of tablet 00:00: mouth at [place] 00 bedtime. Medical Branch lisinopriL Yes [id number] 2.5mg Take 1 [facility] 2.5 mg 5-18 tablet by ity of tablet 00:00: mouth in [place] 00 the Medical morning. Branch metoprolol Yes [id number] 25mg Take 1 U nivers tartrate 25 5-18 tablet by ity of mg tablet 00:00: mouth [place] 00 the Medical morning Branch and 1 tablet in the evening. Lancets Yes [id number] Check Unive rs Misc 5-18 blood ity of 00:00: sugar 2 [place] 00 times a Medical day. Branch E11.9. Brand per insurance. atorvastati Yes [id number] 40mg Take 1 [facility] n 40 mg 5-18 tablet by ity of tablet 00:00: mouth at [place] 00 bedtime. Medical Branch lisinopriL Yes [id number] 2.5mg Take 1 [facility] 2.5 mg 5-18 tablet by ity of tablet 00:00: mouth in [place] 00 the Medical morning. Branch metoprolol 0 Yes [id number] 25mg Take 1 U nivers tartrate 25 5-18 tablet by ity of mg tablet 00:00: mouth [place] 00 the Medical morning Branch and 1 tablet in the evening. Lancets 0 Yes [id number] Check Unive rs Misc 5-18 blood ity of 00:00: sugar 2 [place] 00 times a Medical day. Branch E11.9. Brand per insurance. atorvastati 2022- Yes [id number] 40mg Take 1 [facility] n 40 mg 5-18 tablet by ity of tablet 00:00: mouth at [place] 00 bedtime. Medical Branch lisinopriL Yes [id number] 2.5mg Take 1 [facility] 2.5 mg 5-18 tablet by ity of tablet 00:00: mouth in [place] 00 the Medical morning. Branch metoprolol Yes [id number] 25mg Take 1 U nivers tartrate 25 5-18 tablet by ity of mg tablet 00:00: mouth [place] 00 the Medical morning Branch and 1 tablet in the evening. Lancets Yes [id number] Check Unive rs Misc 5-18 blood ity of 00:00: sugar 2 [place] 00 times a Medical day. Branch E11.9. Brand per insurance. atorvastati Yes [id number] 40mg Take 1 [facility] n 40 mg 5-18 tablet by ity of tablet 00:00: mouth at [place] 00 bedtime. Medical Branch lisinopriL Yes [id number] 2.5mg Take 1 [facility] 2.5 mg 5-18 tablet by ity of tablet 00:00: mouth in [place] 00 the Medical morning. Branch metoprolol Yes [id number] 25mg Take 1 U nivers tartrate 25 5-18 tablet by ity of mg tablet 00:00: mouth [place] 00 the Medical morning Branch and 1 tablet in the evening. Lancets Yes [id number] Check Unive rs Misc 5-18 blood ity of 00:00: sugar 2 [place] 00 times a Medical day. Branch E11.9. Brand per insurance. Lancets Yes [id number] Check Unive rs Misc 5-18 blood ity of 00:00: sugar 2 [place] 00 times a Medical day. Branch E11.9. Brand per insurance. blood sugar 0 Yes [id number] Check U nivers diagnostic 5-18 blood ity of strip 00:00: sugar 2 [place] 00 times a Medical day. Branch E11.9. Brand per insurance. Uses ACCU-CHEK machine Lancets 0 Yes [id number] Check Unive rs Misc 5-18 blood ity of 00:00: sugar 2 [place] 00 times a Medical day. Branch E11.9. Brand per insurance. amiodarone Yes [id number] 200mg Take 1 [facility] 200 mg 5-18 tablet by ity of tablet 00:00: mouth in [place] 00 the Medical morning. Branch apixaban 5 Yes 5mg Take 1 Unive rs mg tablet 5-18 tablet by ity o f 00:00: mouth in [place] the morning Branch and 1 tablet in the evening. Indication s: ATRIAL FIBRILLATI ON atorvastati Yes [id number] 40mg Take 1 [facility] n 40 mg 5-18 tablet by ity of tablet 00:00: mouth at [place] [address] bedtime. Medical Branch divalproex Yes [id number] 250mg Take 1 [facility] ER 250 mg 5-18 tablet by ity o f 24 hr 00:00: mouth [place] tablet 00 every 24 Medical (twenty-fo Branch ur) hours. gabapentin Yes [id number] 300mg Take 1 [facility] 300 mg 5-18 capsule by ity of capsule 00:00: mouth in [place] the morning Branch and 1 capsule at noon and 1 capsule in the evening. lisinopriL Yes [id number] 2.5mg Take 1 [facility] 2.5 mg 5-18 tablet by ity of tablet 00:00: mouth in [place] the morning. Branch metoprolol Yes [id number] 25mg Take 1 U nivers tartrate 25 5-18 tablet by ity of mg tablet 00:00: mouth in [place] [facility] the Branch and 1 tablet in the evening. blood sugar Yes [id number] Check U nivers diagnostic 5-18 blood ity of strip 00:00: sugar 2 [place] 00 times a Medical day. Branch E11.9. Brand per insurance. Uses ACCU-CHEK machine Lancets Yes [id number] Check Unive rs Misc 5-18 blood ity of 00:00: sugar 2 [place] 00 times a Medical day. Branch E11.9. Brand per insurance. amiodarone Yes [id number] 200mg Take 1 [facility] 200 mg 5-18 tablet by ity of tablet 00:00: mouth in [place] 00 the morning. Branch apixaban 5 Yes 5mg Take 1 Unive rs mg tablet 5-18 tablet by ity o f 00:00: mouth in [place] the morning Branch and 1 tablet in the evening. Indication s: ATRIAL FIBRILLATI ON atorvastati Yes [id number] 40mg Take 1 [facility] n 40 mg 5-18 tablet by ity of tablet 00:00: mouth at [place] 00 bedtime. Medical Branch divalproex Yes [id number] 250mg Take 1 [facility] ER 250 mg 5-18 tablet by ity o f 24 hr 00:00: mouth [place] tablet 00 every 24 Medical (twenty-fo Branch ur) hours. gabapentin Yes [id number] 300mg Take 1 [facility] 300 mg 5-18 capsule by ity of capsule 00:00: mouth in [place] 00 the morning Branch and 1 capsule at noon and 1 capsule in the evening. lisinopriL Yes [id number] 2.5mg Take 1 [facility] 2.5 mg 5-18 tablet by ity of tablet 00:00: mouth in [place] 00 the morning. Branch metoprolol Yes [id number] 25mg Take 1 U nivers tartrate 25 5-18 tablet by ity of mg tablet 00:00: mouth in [place] [facility] 00 the morning Branch and 1 tablet in the evening. blood sugar Yes [id number] Check U nivers diagnostic 5-18 blood ity of strip 00:00: sugar 2 [place] 00 times a Medical day. Branch E11.9. Brand per insurance. Uses ACCU-CHEK machine Lancets Yes [id number] Check Unive rs Misc 5-18 blood ity of 00:00: sugar 2 [place] 00 times a Medical day. Branch E11.9. Brand per insurance. amiodarone Yes [id number] 200mg Take 1 [facility] 200 mg 5-18 tablet by ity of tablet 00:00: mouth in [place] 00 the Medical morning. Branch apixaban 5 Yes 5mg Take 1 Unive rs mg tablet 5-18 tablet by ity o f 00:00: mouth in [place] 00 the morning Branch and 1 tablet in the evening. Indication s: ATRIAL FIBRILLATI ON atorvastati Yes [id number] 40mg Take 1 [facility] n 40 mg 5-18 tablet by ity of tablet 00:00: mouth at [place] 00 bedtime. Medical Branch divalproex Yes [id number] 250mg Take 1 [facility] ER 250 mg 5-18 tablet by ity o f 24 hr 00:00: mouth [place] tablet 00 every 24 Medical (- Branch ur) hours. gabapentin 2022-0 Yes [id number] 300mg Take 1 [facility] 300 mg 5-18 capsule by ity of capsule 00:00: mouth in [place] the morning Branch and 1 capsule at noon and 1 capsule in the evening. lisinopriL 2022-0 Yes [id number] 2.5mg Take 1 [facility] 2.5 mg 5-18 tablet by ity of tablet 00:00: mouth in [place] 00 the morning. Branch metoprolol 2022-0 Yes [id number] 25mg Take 1 U nivers tartrate 25 5-18 tablet by ity of mg tablet 00:00: mouth in [place] [facility] the morning Branch and 1 tablet in the evening. blood sugar 0 Yes [id number] Check U nivers diagnostic 5-18 blood ity of strip 00:00: sugar 2 [place] 00 times a Medical day. Branch E11.9. Brand per insurance. Uses ACCU-CHEK machine Lancets Yes [id number] Check Unive rs Misc 5-18 blood ity of 00:00: sugar 2 [place] times a Medical day. Branch E11.9. Brand per insurance. amiodarone 2022-0 Yes [id number] 200mg Take 1 [facility] 200 mg 5-18 tablet by ity of tablet 00:00: mouth in [place] the morning. Branch apixaban 5 2022-0 Yes 5mg Take 1 Unive rs mg tablet 5-18 tablet by ity o f 00:00: mouth in [place] the morning Branch and 1 tablet in the evening. Indication s: ATRIAL FIBRILLATI ON atorvastati 2022-0 Yes [id number] 40mg Take 1 [facility] n 40 mg 5-18 tablet by ity of tablet 00:00: mouth at [place] [address] bedtime. Medical Branch divalproex 2022-0 Yes [id number] 250mg Take 1 [facility] ER 250 mg 5-18 tablet by ity o f 24 hr 00:00: mouth [place] tablet 00 every 24 Medical (twenty- Branch ur) hours. gabapentin 2022-0 Yes [id number] 300mg Take 1 [facility] 300 mg 5-18 capsule by ity of capsule 00:00: mouth in [place] the Medical morning Branch and 1 capsule at noon and 1 capsule in the evening. lisinopriL 2022-0 Yes [id number] 2.5mg Take 1 [facility] 2.5 mg 5-18 tablet by ity of tablet 00:00: mouth in [place] 00 the morning. Branch metoprolol 2022-0 Yes [id number] 25mg Take 1 U nivers tartrate 25 5-18 tablet by ity of mg tablet 00:00: mouth in [place] [facility] 00 the morning Branch and 1 tablet in the evening. blood sugar 2022-0 Yes [id number] Check U nivers diagnostic 5-18 blood ity of strip 00:00: sugar 2 [place] 00 times a Medical day. Branch E11.9. Brand per insurance. Uses ACCU-CHEK machine Lancets 0 Yes [id number] Check Unive rs Misc 5-18 blood ity of 00:00: sugar 2 [place] times a Medical day. Branch E11.9. Brand per insurance. amiodarone 0 Yes [id number] 200mg Take 1 [facility] 200 mg 5-18 tablet by ity of tablet 00:00: mouth in [place] 00 the morning. Branch apixaban 5 0 Yes 5mg Take 1 Unive rs mg tablet 5-18 tablet by ity o f 00:00: mouth in [place] the morning Branch and 1 tablet in the evening. Indication s: ATRIAL FIBRILLATI ON atorvastati 2022-0 Yes [id number] 40mg Take 1 [facility] n 40 mg 5-18 tablet by ity of tablet 00:00: mouth at [place] 00 bedtime. Medical Branch divalproex 2022-0 Yes [id number] 250mg Take 1 [facility] ER 250 mg 5-18 tablet by ity o f 24 hr 00:00: mouth [place] tablet 00 every 24 Medical (twenty-fo Branch ur) hours. gabapentin 2022-0 Yes [id number] 300mg Take 1 [facility] 300 mg 5-18 capsule by ity of capsule 00:00: mouth in [place] the morning Branch and 1 capsule at noon and 1 capsule in the evening. lisinopriL 2022-0 Yes [id number] 2.5mg Take 1 [facility] 2.5 mg 5-18 tablet by ity of tablet 00:00: mouth in [place] 00 the morning. Branch metoprolol 2022-0 Yes [id number] 25mg Take 1 U nivers tartrate 25 5-18 tablet by ity of mg tablet 00:00: [facility] Branch and 1 tablet in the evening. blood sugar 2022-0 Yes [id number] Check U nivers diagnostic 5-18 blood ity of strip 00:00: sugar 2 [place] 00 times a Medical day. Branch E11.9. Brand per insurance. Uses ACCU-CHEK machine Lancets 2022-0 Yes [id number] Check Unive rs Misc 5-18 blood ity of 00:00: sugar 2 [place] 00 times a Medical day. Branch E11.9. Brand per insurance. amiodarone 2022-0 Yes [id number] 200mg Take 1 [facility] 200 mg 5-18 tablet by ity of tablet 00:00: mouth in [place] 00 the Medical morning. Branch apixaban 5 0 Yes 5mg Take 1 Unive rs mg tablet 5-18 tablet by ity o f 00:00: mouth in [place] 00 the Medical morning Branch and 1 tablet in the evening. Indication s: ATRIAL FIBRILLATI ON atorvastati 0 Yes [id number] 40mg Take 1 [facility] n 40 mg 5-18 tablet by ity of tablet 00:00: mouth at [place] 00 bedtime. Medical Branch lisinopriL 0 Yes [id number] 2.5mg Take 1 [facility] 2.5 mg 5-18 tablet by ity of tablet 00:00: mouth in [place] 00 the Medical morning. Branch metoprolol 0 Yes [id number] 25mg Take 1 U nivers tartrate 25 5-18 tablet by ity of mg tablet 00:00: mouth in [facility] s 00 the Medical morning Branch and 1 tablet in the evening. blood sugar 2022-0 Yes [id number] Check U nivers diagnostic 5-18 blood ity of strip 00:00: sugar 2 [place] 00 times a Medical day. Branch E11.9. Brand per insurance. Uses ACCU-CHEK machine Lancets 2022-0 Yes [id number] Check Unive rs Misc 5-18 blood ity of 00:00: sugar 2 [place] 00 times a Medical day. Branch E11.9. Brand per insurance. amiodarone 2022-0 Yes [id number] 200mg Take 1 [facility] 200 mg 5-18 tablet by ity of tablet 00:00: mouth in [place] 00 the Medical morning. Branch apixaban 5 2022-0 Yes 5mg Take 1 Unive rs mg tablet 5-18 tablet by ity o f 00:00: mouth in [place] the morning Branch and 1 tablet in the evening. Indication s: ATRIAL FIBRILLATI ON atorvastati 2022-0 Yes [id number] 40mg Take 1 [facility] n 40 mg 5-18 tablet by ity of tablet 00:00: mouth at [place] [address] bedtime. Medical Branch lisinopriL 2022-0 Yes [id number] 2.5mg Take 1 [facility] 2.5 mg 5-18 tablet by ity of tablet 00:00: mouth in [place] 00 the Medical morning. Branch metoprolol 2022-0 Yes [id number] 25mg Take 1 U nivers tartrate 25 5-18 tablet by ity of mg tablet 00:00: mouth in [place] [facility] 00 the Medical morning Branch and 1 tablet in the evening. blood sugar 0 Yes [id number] Check U nivers diagnostic 5-18 blood ity of strip 00:00: sugar 2 [place] 00 times a Medical day. Branch E11.9. Brand per insurance. Uses ACCU-CHEK machine Lancets 0 Yes [id number] Check Unive rs Misc 5-18 blood ity of 00:00: sugar 2 [place] 00 times a Medical day. Branch E11.9. Brand per insurance. amiodarone 0 Yes [id number] 200mg Take 1 [facility] 200 mg 5-18 tablet by ity of tablet 00:00: mouth in [place] 00 the Medical morning. Branch apixaban 5 2022-0 Yes 5mg Take 1 Unive rs mg tablet 5-18 tablet by ity o f 00:00: mouth in [place] 00 the Medical morning Branch and 1 tablet in the evening. Indication s: ATRIAL FIBRILLATI ON atorvastati 2022-0 Yes [id number] 40mg Take 1 [facility] n 40 mg 5-18 tablet by ity of tablet 00:00: mouth at [place] [address] bedtime. Medical Branch lisinopriL 2022-0 Yes [id number] 2.5mg Take 1 [facility] 2.5 mg 5-18 tablet by ity of tablet 00:00: mouth in [place] 00 the Medical morning. Branch metoprolol 2022-0 Yes [id number] 25mg Take 1 U nivers tartrate 25 5-18 tablet by ity of mg tablet 00:00: mouth in [facility] s 00 the Medical morning Branch and 1 tablet in the evening. blood sugar 2022-0 Yes [id number] Check U nivers diagnostic 5-18 blood ity of strip 00:00: sugar 2 [place] 00 times a Medical day. Branch E11.9. Brand per insurance. Uses ACCU-CHEK machine Lancets 2022-0 Yes [id number] Check Unive rs Misc 5-18 blood ity of 00:00: sugar 2 [place] 00 times a Medical day. Branch E11.9. Brand per insurance. amiodarone 2022-0 Yes [id number] 200mg Take 1 [facility] 200 mg 5-18 tablet by ity of tablet 00:00: mouth in [place] 00 the Medical morning. Branch apixaban 5 2022-0 Yes 5mg Take 1 Unive rs mg tablet 5-18 tablet by ity o f 00:00: mouth in [place] 00 the Medical morning Branch and 1 tablet in the evening. Indication s: ATRIAL FIBRILLATI ON atorvastati 2022-0 Yes [id number] 40mg Take 1 Univers n 40 mg 5-18 tablet by ity of tablet 00:00: mouth at [place] 00 bedtime. Medical Branch lisinopriL 0 Yes [id number] 2.5mg Take 1 Univers 2.5 mg 5-18 tablet by ity of tablet 00:00: mouth in [place] 00 the Medical morning. Branch metoprolol 2022-0 Yes [id number] 25mg Take 1 U nivers tartrate 25 5-18 tablet by ity of mg tablet 00:00: mouth in [facility] s 00 the Medical morning Branch and 1 tablet in the evening. blood sugar 2022-0 Yes [id number] Check U nivers diagnostic 5-18 blood ity of strip 00:00: sugar 2 [place] 00 times a Medical day. Branch E11.9. Brand per insurance. Uses ACCU-CHEK machine Lancets 2022-0 Yes [id number] Check Unive rs Misc 5-18 blood ity of 00:00: sugar 2 [place] 00 times a Medical day. Branch E11.9. Brand per insurance. amiodarone 2022-0 Yes [id number] 200mg Take 1 [facility] 200 mg 5-18 tablet by ity of tablet 00:00: mouth in [place] 00 the Medical morning. Branch apixaban 5 2022-0 Yes 5mg Take 1 Unive rs mg tablet 5-18 tablet by ity o f 00:00: mouth in [place] the morning Branch and 1 tablet in the evening. Indication s: ATRIAL FIBRILLATI ON atorvastati 2022-0 Yes [id number] 40mg Take 1 Univers n 40 mg 5-18 tablet by ity of tablet 00:00: mouth at [place] [address] bedtime. Medical Branch lisinopriL 2022-0 Yes [id number] 2.5mg Take 1 Univers 2.5 mg 5-18 tablet by ity of tablet 00:00: mouth in [place] 00 the morning. Branch metoprolol 2022-0 Yes [id number] 25mg Take 1 U nivers tartrate 25 5-18 tablet by ity of mg tablet 00:00: mouth in [place] [facility] 00 the morning Branch and 1 tablet in the evening. blood sugar 0 Yes [id number] Check U nivers diagnostic 5-18 blood ity of strip 00:00: sugar 2 [place] 00 times a Medical day. Branch E11.9. Brand per insurance. Uses ACCU-CHEK machine Lancets Yes [id number] Check Unive rs Misc 5-18 blood ity of 00:00: sugar 2 [place] 00 times a Medical day. Branch E11.9. Brand per insurance. amiodarone 2022-0 Yes [id number] 200mg Take 1 Univers 200 mg 5-18 tablet by ity of tablet 00:00: mouth in [place] 00 the Medical morning. Branch apixaban 5 2022-0 Yes 5mg Take 1 Unive rs mg tablet 5-18 tablet by ity o f 00:00: mouth in [place] the morning Branch and 1 tablet in the evening. Indication s: ATRIAL FIBRILLATI ON atorvastati 2022-0 Yes [id number] 40mg Take 1 Univers n 40 mg 5-18 tablet by ity of tablet 00:00: mouth at [place] [address] bedtime. Medical Branch lisinopriL 2022-0 Yes [id number] 2.5mg Take 1 Univers 2.5 mg 5-18 tablet by ity of tablet 00:00: mouth in [place] 00 the Medical morning. Branch metoprolol 2022-0 Yes [id number] 25mg Take 1 U nivers tartrate 25 5-18 tablet by ity of mg tablet 00:00: mouth in [facility] s 00 the Medical morning Branch and 1 tablet in the evening. blood sugar Yes [id number] Check U nivers diagnostic 5-18 blood ity of strip 00:00: sugar 2 [place] 00 times a Medical day. Branch E11.9. Brand per insurance. Uses ACCU-CHEK machine Lancets Yes [id number] Check Unive rs Misc 5-18 blood ity of 00:00: sugar 2 [place] 00 times a Medical day. Branch E11.9. Brand per insurance. amiodarone Yes [id number] 200mg Take 1 [facility] 200 mg 5-18 tablet by ity of tablet 00:00: mouth in [place] 00 the Medical morning. Branch apixaban 5 Yes 5mg Take 1 Unive rs mg tablet 5-18 tablet by ity o f 00:00: mouth in [place] 00 the Medical morning Branch and 1 tablet in the evening. Indication s: ATRIAL FIBRILLATI ON atorvastati Yes [id number] 40mg Take 1 Univers n 40 mg 5-18 tablet by ity of tablet 00:00: mouth at [place] 00 bedtime. Medical Branch lisinopriL Yes [id number] 2.5mg Take 1 Univers 2.5 mg 5-18 tablet by ity of tablet 00:00: mouth in [place] 00 the Medical morning. Branch metoprolol Yes [id number] 25mg Take 1 U nivers tartrate 25 5-18 tablet by ity of mg tablet 00:00: mouth in [place] [facility] 00 the Medical morning Branch and 1 tablet in the evening. atorvastati 2022- No [id number] 40mg Take 1 Univers n 40 mg 5-18 08-18 tablet by ity of tablet 00:00: 00:00 mouth at [place] 00 :00 bedtime. Medical Branch lisinopriL 2022-2022- No [id number] 2.5mg Take 1 Univers 2.5 mg 5-18 08-18 tablet by ity of tablet 00:00: 00:00 mouth in [place] 00 :00 the Medical morning. Branch metoprolol 2022- No [id number] 25mg Take 1 Univers tartrate 25 5-18 08-18 tablet by it y of mg tablet 00:00: 00:00 mouth in [facility] as 00 :00 the Medical morning Branch and 1 tablet in the evening. atorvastati 2022- No [id number] 40mg Take 1 Univers n 40 mg -06 12-18 tablet by ity of tablet 00:00: 00:00 mouth at [place] 00 :00 bedtime. Medical Branch lisinopriL 2022- No [id number] 2.5mg Take 1 Univers 2.5 mg 09-05-18 tablet by ity of tablet 00:00: 00:00 mouth in [place] 00 :00 the Medical morning. Branch metoprolol 2022- No [id number] 25mg Take 1 Univers tartrate 25 09-05-18 tablet by it y of mg tablet 00:00: 00:00 mouth in [facility] as 00 :00 the Medical morning Branch and 1 tablet in the evening. amiodarone 2022-2022- No [id number] 200mg Take 1 [facility] 200 mg 09-05-19 tablet by ity of tablet 00:00: 00:00 mouth in [place] 00 :00 the Medical morning. Branch apixaban 5 2022- No 5mg Take 1 Univ ers mg tablet 09-05-19 tablet by ity of 00:00: 00:00 mouth in [place] 00 :00 the Medical morning Branch and 1 tablet in the evening. Indication s: ATRIAL FIBRILLATI ON amiodarone 2022-2022- No [id number] 200mg Take 1 [facility] 200 mg 09-05-19 tablet by ity of tablet 00:00: 00:00 mouth in [place] 00 :00 the Medical morning. Branch apixaban 5 2022- No 5mg Take 1 Univ ers mg tablet 09-05-19 tablet by ity of 00:00: 00:00 mouth in [place] 00 :00 the Medical morning Branch and 1 tablet in the evening. Indication s: ATRIAL FIBRILLATI ON amiodarone 2022-2022- No [id number] 200mg Take 1 Univers 200 mg 5-18 -19 tablet by ity of tablet 00:00: 00:00 mouth in [place] 00 :00 the Medical morning. Branch apixaban 5 2022- No 5mg Take 1 Univ ers mg tablet 09-05-19 tablet by ity of 00:00: 00:00 mouth in [place] 00 :00 the Medical morning Branch and 1 tablet in the evening. Indication s: ATRIAL FIBRILLATI ON amiodarone 2022- No [id number] 200mg Take 1 [facility] 200 mg 09-05-19 [...] ATRIAL FIBRILLATI ON blood sugar 2022- No [id number] Check Univers diagnostic 09-05 blood ity of strip 00:00: 00:00 sugar 2 [place] 00 :00 times a Medical day. Branch E11.9. Brand per insurance. Uses ACCU-CHEK machine divalproex 2022- No [id number] 250mg Take 1 Univers ER 250 mg 5-18 05-25 tablet by ity of 24 hr 00:00: 00:00 mouth [place] tablet 00 :00 every 24 Medical ([facility] Branch ur) hours. gabapentin 2022- No [id number] 300mg Take 1 Univers 300 mg 5-18 05-25 capsule by ity of capsule 00:00: 00:00 mouth in [place] 00 :00 the Medical morning Branch and 1 capsule at noon and 1 capsule in the evening. divalproex 2022- No [id number] 250mg Take 1 Univers ER 250 mg 5-18 05-25 tablet by ity of 24 hr 00:00: 00:00 mouth [place] tablet 00 :00 every 24 Medical ([facility] Branch ur) hours. gabapentin 2022- No [id number] 300mg Take 1 Univers 300 mg 5-18 05-25 capsule by ity of capsule 00:00: 00:00 mouth in [place] 00 :00 the Medical morning Branch and 1 capsule at noon and 1 capsule in the evening. divalproex 2022-2022- No [id number] 250mg Take 1 Univers ER 250 mg 5-18 05-25 tablet by ity of 24 hr 00:00: 00:00 mouth [place] tablet 00 :00 every 24 Medical (twenty- Branch ur) hours. gabapentin 2022-2022- No [id number] 300mg Take 1 Univers 300 mg 5-18 05-25 capsule by ity of capsule 00:00: 00:00 mouth in [place] 00 :00 the Medical morning Branch and 1 capsule at noon and 1 capsule in the evening. divalproex 2022-2022- No [id number] 250mg Take 1 Univers ER 250 mg 5-18 05-25 tablet by ity of 24 hr 00:00: 00:00 mouth [place] tablet 00 :00 every 24 Medical (- Branch ur) hours. gabapentin 2022- No [id number] 300mg Take 1 Univers 300 mg 5-18 05-25 capsule by ity of capsule 00:00: 00:00 mouth in [place] 00 :00 the Medical morning Branch and 1 capsule at noon and 1 capsule in the evening. calcium 2022- No 500mg 500 mg, Unive rs carbonate 08-14 [...] 08/14/22 at 0030, STAT divalproex 2022-0 Yes [id number] 250mg Take 1 Univers ER 250 mg - tablet by ity o f 24 hr 00:00: mouth [place] tablet 00 every 24 Medical (twenty-fo Branch ur) hours. divalproex 2023-0 Yes [id number] 250mg Take 1 Univers ER 250 mg 4-26 tablet by ity o f 24 hr 00:00: mouth [place] tablet 00 every 24 Medical (twenty-fo Branch ur) hours. divalproex 2023-0 Yes [id number] 250mg Take 1 Univers ER 250 mg 4-26 tablet by ity o f 24 hr 00:00: mouth [place] tablet 00 every 24 Medical (twenty-fo Branch ur) hours. divalproex 2023-0 Yes [id number] 250mg Take 1 Univers ER 250 mg 4-26 tablet by ity o f 24 hr 00:00: mouth [place] tablet 00 every 24 Medical (twenty-fo Branch ur) hours. divalproex 2023-0 Yes [id number] 250mg Take 1 Univers ER 250 mg 4-26 tablet by ity o f 24 hr 00:00: mouth [place] tablet 00 every 24 Medical (twenty-fo Branch ur) hours. divalproex 2023-0 Yes [id number] 250mg Take 1 Univers ER 250 mg 4-26 tablet by ity o f 24 hr 00:00: mouth [place] tablet 00 every 24 Medical (twenty-fo Branch ur) hours. divalproex 2023-0 Yes [id number] 250mg Take 1 Univers ER 250 mg 4-26 tablet by ity o f 24 hr 00:00: mouth [place] tablet 00 every 24 Medical (twenty-fo Branch ur) hours. divalproex 2023-0 Yes [id number] 250mg Take 1 Univers ER 250 mg 4-26 tablet by ity o f 24 hr 00:00: mouth [place] tablet 00 every 24 Medical (twenty-fo Branch ur) hours. divalproex 2023-0 Yes [id number] 250mg Take 1 Univers ER 250 mg 4-26 tablet by ity o f 24 hr 00:00: mouth [place] tablet 00 every 24 Medical (twenty-fo Branch ur) hours. divalproex 2023-0 Yes [id number] 250mg Take 1 Univers ER 250 mg 4-26 tablet by ity o f 24 hr 00:00: mouth [place] tablet 00 every 24 Medical (twenty-fo Branch ur) hours. divalproex 2023-0 Yes [id number] 250mg Take 1 Univers ER 250 mg 4-26 tablet by ity o f 24 hr 00:00: mouth [place] tablet 00 every 24 Medical (twenty-fo Branch ur) hours. divalproex 0 Yes [id number] 250mg Take 1 Univers ER 250 mg 4-26 tablet by ity o f 24 hr 00:00: mouth [place] tablet 00 every 24 Medical (twenty-fo Branch ur) hours. divalproex 2022- No [id number] 250mg Take 1 Univers ER 250 mg 4-26 05-18 tablet by ity of 24 hr 00:00: 00:00 mouth [place] tablet 00 :00 every 24 Medical (twenty-fo Branch ur) hours. lancing Yes 1{each} Take 1 Unive rs device/lanc 4-17 Each in ity o ets 14:20: the [place] (ACCU-CHEK 29 morning Medica l SOFT DEV and 1 Each Branc h LANCETS at noon MISC) and 1 Each in the evening. lancing Yes 1{each} Take 1 Unive rs device/lanc 4-17 Each in ity [facility] ets 14:20: the [place] (ACCU-CHEK 29 morning Medica l SOFT DEV and 1 Each Branc h LANCETS at noon MISC) and 1 Each in the evening. lancing Yes 1{each} Take 1 Unive rs device/lanc 4-17 Each in ity o ets 14:20: the [place] (ACCU-CHEK 29 morning Medica l SOFT DEV and 1 Each Branc h LANCETS at noon MISC) and 1 Each in the evening. lancing Yes 1{each} Take 1 Unive rs device/lanc 4-17 Each in ity o ets 14:20: the [place] (ACCU-CHEK 29 morning Medica l SOFT DEV and 1 Each Branc h LANCETS at noon MISC) and 1 Each in the evening. lancing Yes 1{each} Take 1 Unive rs device/lanc 4-17 Each in ity o ets 14:20: the [place] (ACCU-CHEK 29 morning Medica l SOFT DEV and 1 Each Branc h LANCETS at noon MISC) and 1 Each in the evening. lancing 2023-0 Yes 1{each} Take 1 Unive rs device/lanc 4-17 Each in [facility] ets 14:20: the [place] (ACCU-CHEK 29 morning Medica l SOFT DEV and 1 Each Branc h LANCETS at noon MISC) and 1 Each in the evening. lancing Yes 1{each} Take 1 Unive rs device/lanc 4-17 Each in [facility] ets 14:20: the [place] (ACCU-CHEK 29 morning Medica l SOFT DEV and 1 Each Branc h LANCETS at noon MISC) and 1 Each in the evening. lancing 0 Yes 1{each} Take 1 Unive rs device/lanc 4-17 Each in [facility] ets 14:20: the [place] (ACCU-CHEK 29 morning Medica l SOFT DEV and 1 Each Branc h LANCETS at noon MISC) and 1 Each in the evening. lancing Yes 1{each} Take 1 Unive rs device/lanc 4-17 Each in [facility] ets 14:20: the [place] (ACCU-CHEK 29 morning Medica l SOFT DEV and 1 Each Branc h LANCETS at noon MISC) and 1 Each in the evening. lancing Yes 1{each} Take 1 Unive rs device/lanc 4-17 Each in [facility] ets 14:20: the [place] (ACCU-CHEK 29 morning Medica l SOFT DEV and 1 Each Branc h LANCETS at noon MISC) and 1 Each in the evening. lancing Yes 1{each} Take 1 Unive rs device/lanc 4-17 Each in [facility] ets 14:20: the [place] (ACCU-CHEK 29 morning Medica l SOFT DEV and 1 Each Branc h LANCETS at noon MISC) and 1 Each in the evening. lancing Yes 1{each} Take 1 Unive rs device/lanc 4-17 Each in [facility] ets 14:20: the [place] (ACCU-CHEK 29 morning Medica l SOFT DEV and 1 Each Branc h LANCETS at noon MISC) and 1 Each in the evening. lancing Yes 1{each} Take 1 Unive rs device/lanc 4-17 Each in ity [facility] ets 14:20: the [place] (ACCU-CHEK 29 morning Medica l SOFT DEV and 1 Each Branc h LANCETS at noon MISC) and 1 Each in the evening. lancing Yes 1{each} Take 1 Unive rs device/lanc 4-17 Each in [facility] ets 14:20: the [place] (ACCU-CHEK 29 morning Medica l SOFT DEV and 1 Each Branc h LANCETS at noon MISC) and 1 Each in the evening. lancing Yes 1{each} Take 1 Unive rs device/lanc 4-17 Each in [facility] ets 14:20: the [place] (ACCU-CHEK 29 morning Medica l SOFT DEV and 1 Each Branc h LANCETS at noon MISC) and 1 Each in the evening. lancing Yes 1{each} Take 1 Unive rs device/lanc 4-17 Each in [facility] ets 14:20: the [place] (ACCU-CHEK 29 morning Medica l SOFT DEV and 1 Each Branc h LANCETS at noon MISC) and 1 Each in the evening. lancing Yes 1{each} Take 1 Unive rs device/lanc 4-17 Each in [facility] ets 14:20: the [place] (ACCU-CHEK 29 morning Medica l SOFT DEV and 1 Each Branc h LANCETS at noon MISC) and 1 Each in the evening. lancing Yes 1{each} Take 1 Unive rs device/lanc 4-17 Each in [facility] ets 14:20: the [place] (ACCU-CHEK 29 morning Medica l SOFT DEV and 1 Each Branc h LANCETS at noon MISC) and 1 Each in the evening. lancing Yes 1{each} Take 1 Unive rs device/lanc 4-17 Each in [facility] ets 14:20: the [place] (ACCU-CHEK 29 morning Medica l SOFT DEV and 1 Each Branc h LANCETS at noon MISC) and 1 Each in the evening. lancing Yes 1{each} Take 1 Unive rs device/lanc 4-17 Each in ity [facility] ets 14:20: the [place] (ACCU-CHEK 29 morning Medica l SOFT DEV and 1 Each Branc h LANCETS at noon MISC) and 1 Each in the evening. lancing 2022-0 Yes 1{each} Take 1 Unive rs device/lanc 4-17 Each in [facility] ets 14:20: the [place] (ACCU-CHEK 29 morning Medica l SOFT DEV and 1 Each Branc h LANCETS at noon MISC) and 1 Each in the evening. lancing 2022-0 Yes 1{each} Take 1 Unive rs device/lanc 4-17 Each in [facility] ets 14:20: the [place] (ACCU-CHEK 29 morning Medica l SOFT DEV and 1 Each Branc h LANCETS at noon MISC) and 1 Each in the evening. lancing 0 Yes 1{each} Take 1 Unive rs device/lanc 4-17 Each in [facility] 14:20: the [place] (ACCU-CHEK 29 morning Medica l SOFT DEV and 1 Each Branc h LANCETS at noon MISC) and 1 Each in the evening. lisinopriL 2022- No 2.5mg Take 1 Uni vers 2.5 mg 4-17 04-17 tablet by ity of tablet 14:01: 00:00 mouth in [place] 18 :00 the Medical morning. Branch gabapentin 2022- No 300mg Take 1 Uni vers 300 mg 4-17 04-17 capsule by ity of capsule 14:01: 00:00 mouth in [place] 18 :00 the Medical morning. Branch atorvastati 2022- No 40mg Take 1 Uni vers n 40 mg 4-17 04-17 tablet by ity of tablet 14:01: 00:00 mouth at [place] 18 :00 bedtime. Medical Branch apixaban 5 2022- No 5mg Take 1 Univ ers mg tablet -17 -17 tablet by ity of 14:01: 00:00 mouth [place] 18 :00 every 12 Medical (twelve) Branch hours. metoprolol 2022- No 25mg Take 1 Univ ers tartrate 25 4-17 04-17 tablet by it y of mg tablet 14:01: 00:00 mouth in [facility] 18 :00 the Medical morning Branch and 1 tablet in the evening. lisinopriL 2023-0 2023- No 2.5mg Take 1 Uni vers 2.5 mg 4-17 04-17 tablet by ity of tablet 14:: 00:00 mouth in [place] 18 :00 [...] tablet 14:01: 00:00 mouth in [facility] as 18 :00 the Medical morning Branch [...] of mg tablet 14:01: 00:00 mouth in [place] 18 :00 the Medical morning Branch and 1 tablet in the evening. SERTraline 2022-2022- No 25mg Take 1 Univ ers 25 mg 4-17 04-17 tablet by ity of tablet 14:01: 00:00 mouth in [place] 12 :00 the Medical morning. Branch SERTraline 2022- No 25mg Take 1 Univ ers 25 mg 4-17 04-17 tablet by ity of tablet 14:01: 00:00 mouth in [place] 12 :00 the Medical morning. Branch SERTraline 2022- No 25mg Take 1 Univ ers 25 mg 4-17 04-17 tablet by ity of tablet 14:01: 00:00 mouth in [place] 12 :00 the Medical morning. Branch Miscellaneo [...] skin. Abdi (HUMULIN N 22 Unsure of [facility]) what kind Branch of humulin insulin he takes SEMGLEE,INS 2023-0 Yes inject Univ ers ULIN 4-17 under the ity of GLARGINE-YF 13:33: skin. As AURELIO [place]an[place] 22 directed Medical Branch insulin NPH 2022-0 Yes inject Univ ers human 4-17 under the ity of isophane 13:33: skin. Abdi (HUMULIN N 22 Unsure of [facility]) what kind Branch of humulin insulin he takes SEMGLEE,INS 3-0 Yes inject Univ ers ULIN 4-17 under the ity of GLARGINE-YF 13:33: skin. As AURELIO Quintanilla directed Medical Branch insulin NPH 2022-0 Yes inject Univ ers human 4-17 under the ity of isophane 13:33: skin. Abdi (HUMULIN N 22 Unsure of [facility]) what kind Branch of humulin insulin he takes SEMGLEE,INS 3-0 Yes inject Univ ers ULIN 4-17 under the ity of GLARGINE-YF 13:33: skin. As AURELIO [place] 22 directed Medical Branch insulin NPH 2022-0 Yes inject Univ ers human 4-17 under the ity of isophane 13:33: skin. Abdi (HUMULIN N 22 Unsure of [facility]) what kind Branch of humulin insulin he takes SEMGLEE,INS 3-0 Yes inject Univ ers ULIN 4-17 under the ity of GLARGINE-YF 13:33: skin. As AUREILO [place] 22 directed Medical Branch insulin NPH 2022-0 Yes inject Univ ers human 4-17 under the ity of isophane 13:33: skin. Abdi (HUMULIN N 22 Unsure of [facility]) what kind Branch of humulin insulin he takes SEMGLEE,INS 2023-0 Yes inject Univ ers ULIN 4-17 under the ity of GLARGINE-YF 13:33: skin. [place] 22 directed Medical Branch insulin NPH 2022-0 Yes inject Univ ers human 4-17 under the ity of isophane 13:33: skin. Abdi (HUMULIN N 22 Unsure of [facility] [place]) what kind Branch of humulin insulin he takes SEMGLEE,INS 2022-0 Yes inject Univ ers ULIN 4-17 under the ity of GLARGINE-YF 13:33: skin. As AURELIO [place]an[place] 22 directed Medical Branch insulin NPH 2022-0 Yes inject Univ ers human 4-17 under the ity of isophane 13:33: skin. Abdi (HUMULIN N 22 Unsure of [facility] [place]) what kind Branch of humulin insulin he takes SEMGLEE,INS 2022-0 Yes inject Univ ers ULIN 4-17 under the ity of GLARGINE-YF 13:33: skin. As AURELIO uQintanilla 22 directed Medical Branch insulin NPH 2022-0 Yes inject Univ ers human 4-17 under the ity of isophane 13:33: skin. Abdi (HUMULIN N 22 Unsure of [facility] dilshad [facility]) what kind Branch of humulin insulin he takes SEMGLEE,INS 3-0 Yes inject Univ ers ULIN 4-17 under the ity of GLARGINE-YF 13:33: skin. As AURELIO [place]an[place] 22 directed Medical Branch insulin NPH 2022-0 Yes inject Univ ers human 4-17 under the ity of isophane 13:33: skin. Abdi (HUMULIN N 22 Unsure of [facility] [place]) what kind Branch of humulin insulin he takes SEMGLEE,INS 3-0 Yes inject Univ ers ULIN 4-17 under the ity of GLARGINE-YF 13:33: skin. As AURELIO [place] 22 directed Medical Branch insulin NPH 2022-0 Yes inject Univ ers human 4-17 under the ity of isophane 13:33: skin. Abdi (HUMULIN N 22 Unsure of [facility] [place]) what kind Branch of humulin insulin he takes SEMGLEE,INS 2023-0 Yes inject Univ ers ULIN 4-17 under the ity of GLARGINE-YF 13:33: skin. As AURELIO [place]an[place] 22 directed Medical Branch insulin NPH 2022-0 Yes inject Univ ers human 4-17 under the ity of isophane 13:33: skin. Abdi (HUMULIN N 22 Unsure of Medi [place]) what kind Branch of humulin insulin he takes SEMGLEE,INS 2023-0 Yes inject Univ ers ULIN 4-17 under the ity of GLARGINE-YF 13:33: skin. As AURELIO Quintan[place] 22 directed Medical Branch insulin NPH 2022-0 Yes inject Univ ers human 4-17 under the ity of isophane 13:33: skin. Abdi (HUMULIN N 22 Unsure of Medi [place]) what kind Branch of humulin insulin he takes SEMGLEE,INS 2023-0 Yes inject Univ ers ULIN 4-17 under the ity of GLARGINE-YF 13:33: skin. As AURELIO Quintan[place] 22 directed Medical Branch insulin NPH 2022-0 Yes inject Univ ers human 4-17 under the ity of isophane 13:33: skin. Abdi (HUMULIN N 22 Unsure of Medi [place]) what kind Branch of humulin insulin he takes SEMGLEE,INS 2023-0 Yes inject Univ ers ULIN 4-17 under the ity of GLARGINE-YF 13:33: skin. As AURELIO Quintanilla 22 directed Medical Branch insulin NPH 2022-0 Yes inject Univ ers human 4-17 under the ity of isophane 13:33: skin. Abdi (HUMULIN N 22 Unsure of Medi [place]) what kind Branch of humulin insulin he takes SEMGLEE,INS 2023-0 Yes inject Univ ers ULIN 4-17 under the ity of GLARGINE-YF 13:33: skin. As AURELIO Quintan[place] 22 directed Medical Branch insulin NPH 3-0 Yes inject Univ ers human 4-17 under the ity of isophane 13:33: skin. Abdi (HUMULIN N 22 Unsure of Medi [place]) what kind Branch of humulin insulin he takes SEMGLEE,INS 2023-0 Yes inject Univ ers ULIN 4-17 under the ity of GLARGINE-YF 13:33: skin. As AURELIO Quintan[place] 22 directed Medical Branch insulin NPH 3-0 Yes inject Univ ers human 4-17 under the ity of isophane 13:33: skin. Abdi (HUMULIN N 22 Unsure of [facility]) what kind Branch of humulin insulin he takes SEMGLEE,INS 2023-0 Yes inject Univ ers ULIN 4-17 under the ity of GLARGINE-YF 13:33: skin. As AURELIO Quintan[place] 22 directed Medical Branch insulin NPH 2022-0 Yes inject Univ ers human 4-17 under the ity of isophane 13:33: skin. Abdi (HUMULIN N 22 Unsure of [facility] [place]) what kind Branch of humulin insulin he takes SEMGLEE,INS 2023-0 Yes inject Univ ers ULIN 4-17 under the ity of GLARGINE-YF 13:33: skin. As AURELIO Quintanilla 22 directed Medical Branch insulin NPH 2022-0 Yes inject Univ ers human 4-17 under the ity of isophane 13:33: skin. Abdi (HUMULIN N 22 Unsure of [facility]) what kind Branch of humulin insulin he takes SEMGLEE,INS 2023-0 Yes inject Univ ers ULIN 4-17 under the ity of GLARGINE-YF 13:33: skin. As AURELIO Quintanilla 22 directed Medical Branch insulin NPH 2022-0 Yes inject Univ ers human 4-17 under the ity of isophane 13:33: skin. Abdi (HUMULIN N 22 Unsure of [facility]) what kind Branch of humulin insulin he takes SEMGLEE,INS 2023-0 Yes inject Univ ers ULIN 4-17 under the ity of GLARGINE-YF 13:33: skin. As AURLEIO Quintanilla 22 directed Medical Branch insulin NPH 3-0 Yes inject Univ ers human 4-17 under the ity of isophane 13:33: skin. Abdi (HUMULIN N 22 Unsure of [facility] [place]) what kind Branch of humulin insulin he takes SEMGLEE,INS 2023-0 Yes inject Univ ers ULIN 4-17 under the ity of GLARGINE-YF 13:33: skin. As AURELIO Quintanilla 22 directed Medical Branch insulin NPH 3-0 Yes inject Univ ers human 4-17 under the ity of isophane 13:33: skin. Abdi (HUMULIN N 22 Unsure of [facility]) what kind Branch of humulin insulin he takes SEMGLEE,INS 2023-0 Yes inject Univ ers ULIN 4-17 under the ity of GLARGINE-YF 13:33: skin. As AURELIO Quintanilla 22 directed Medical Branch insulin NPH 2022-0 Yes inject Univ ers human 4-17 under the ity of isophane 13:33: skin. Abdi (HUMULIN N 22 Unsure of [facility] [place]) what kind Branch of humulin insulin he takes SEMGLEE,INS 2023-0 Yes inject Univ ers ULIN 4-17 under the ity of GLARGINE-YF 13:33: skin. As AURELIO Quintanilla 22 directed Medical Branch insulin NPH 2022-0 Yes inject Univ ers human 4-17 under the ity of isophane 13:33: skin. Abdi (HUMULIN N 22 Unsure of [facility] [place]) what kind Branch of humulin insulin he takes SEMGLEE,INS 2023-0 Yes inject Univ ers ULIN 4-17 under the ity of GLARGINE-YF 13:33: skin. As AURELIO Quintanilla 22 directed Medical Branch insulin NPH 2022-0 Yes inject Univ ers human 4-17 under the ity of isophane 13:33: skin. Abdi (HUMULIN N 22 Unsure of [facility] [place]) what kind Branch of humulin insulin he takes SEMGLEE,INS 2023-0 Yes inject Univ ers ULIN 4-17 under the ity of GLARGINE-YF 13:33: skin. As AURELIO Quintanilla 22 directed Medical Branch insulin NPH 2022-0 Yes inject Univ ers human 4-17 under the ity of isophane 13:33: skin. Abdi (HUMULIN N 22 Unsure of Medi [place]) what kind Branch of humulin insulin he takes SEMGLEE,INS 2023-0 Yes inject Univ ers ULIN 4-17 under the ity of GLARGINE-YF 13:33: skin. As AURELIO Quintanilla 22 directed Medical Branch insulin NPH 3-0 Yes inject Univ ers human 4-17 under the ity of isophane 13:33: skin. Abdi (HUMULIN N 22 Unsure of [facility] [place]) what kind Branch of humulin insulin he takes SEMGLEE,INS 2023-0 Yes inject Univ ers ULIN 4-17 under the ity of GLARGINE-YF 13:33: skin. As Rolando [place], [place] 22 directed Medical Branch insulin NPH 2023-0 Yes inject [facility] ers human 4-17 under the ity of isophane 13:33: skin. Abdi (HUMULIN N 22 Unsure of [facility]) what kind Branch of humulin insulin he takes SEMGLEE,INS 3-0 Yes inject Univ ers ULIN 4-17 under the ity of GLARGINE-YF 13:33: skin. As Rolando [place], [place] 22 directed Medical Branch insulin NPH 3-0 Yes inject Univ ers human 4-17 under the ity of isophane 13:33: skin. Abdi (HUMULIN N 22 Unsure of [facility]i [place]) what kind Branch of humulin insulin he takes insulin NPH 2023-0 Yes inject [facility] ers human 4-17 under the ity of isophane 13:33: skin. Abdi (HUMULIN N 22 Unsure of [facility] [place]) what kind Branch of humulin insulin he takes insulin NPH 2023-0 Yes inject Univ ers human 4-17 under the ity of isophane 13:33: skin. Abdi (HUMULIN N 22 Unsure of [facility]) what kind Branch of humulin insulin he takes insulin NPH 2023-0 Yes inject [facility] ers human 4-17 under the ity of isophane 13:33: skin. Abdi (HUMULIN N 22 Unsure of [facility]) what kind Branch of humulin insulin he takes insulin NPH 2023-0 Yes inject Univ ers human 4-17 under the ity of isophane 13:33: skin. Abdi (HUMULIN N 22 Unsure of [facility]) what kind Branch of humulin insulin he [...] N 22 Unsure of [facility]i [place]) what kind Branch of humulin insulin he takes insulin NPH 2023-0 Yes inject Univ ers human 4-17 under the ity of isophane 13:33: skin. [place] (HUMULIN N 22 Unsure of [facility]) what kind Branch of humulin insulin he takes cephALEXin 2023-0 Yes 500mg Take 1 Univ ers 500 mg 4-17 capsule by ity of capsule 13:23: mouth 4 [place] [address] (four) Medical times Branch daily. cephALEXin 2023-0 Yes 500mg Take 1 Univ ers 500 mg 4-17 capsule by ity of capsule 13:23: mouth 4 [place] [address] (four) Medical times Branch daily. cephALEXin 2023-0 Yes 500mg Take 1 Univ ers 500 mg 4-17 capsule by ity of capsule 13:23: mouth 4 [place] [address] (four) Medical times Branch daily. cephALEXin 2023-0 Yes 500mg Take 1 Univ ers 500 mg 4-17 capsule by ity of capsule 13:23: mouth 4 [place] [address] (four) Medical times Branch daily. cephALEXin 2023-0 Yes 500mg Take 1 Univ ers 500 mg 4-17 capsule by ity of capsule 13:23: mouth 4 [place] [address] (four) Medical times Branch daily. cephALEXin 2023-0 Yes 500mg Take 1 Univ ers 500 mg 4-17 capsule by ity of capsule 13:23: mouth 4 [place] [address] (four) Medical times Branch daily. cephALEXin 2023-0 Yes 500mg Take 1 Univ ers 500 mg 4-17 capsule by ity of capsule 13:23: mouth 4 [place] 56 (four) Medical times Branch daily. cephALEXin 2023-0 Yes 500mg Take 1 Univ ers 500 mg 4-17 capsule by ity of capsule 13:23: mouth 4 [place] [address] (four) Medical times Branch daily. cephALEXin 2023-0 Yes 500mg Take 1 Univ ers 500 mg 4-17 capsule by ity of capsule 13:23: mouth 4 [place] [address] (four) Medical times Branch daily. cephALEXin 2023-0 Yes 500mg Take 1 Univ ers 500 mg 4-17 capsule by ity of capsule 13:23: mouth 4 [place] [address] (four) Medical times Branch daily. cephALEXin 2023-0 Yes 500mg Take 1 Univ ers 500 mg 4-17 capsule by ity of capsule 13:23: mouth 4 [place] [address] (four) Medical times Branch daily. cephALEXin 2023-0 Yes 500mg Take 1 Univ ers 500 mg 4-17 capsule by ity of capsule 13:23: mouth 4 [place] [address] (four) Medical times Branch daily. cephALEXin 2023-0 Yes 500mg Take 1 Univ ers 500 mg 4-17 capsule by ity of capsule 13:23: mouth 4 [place] [address] (four) Medical times Branch daily. cephALEXin 2023-0 Yes 500mg Take 1 Univ ers 500 mg 4-17 capsule by ity of capsule 13:23: mouth 4 [place] [address] (four) Medical times Branch daily. cephALEXin 2023-0 Yes 500mg Take 1 Univ ers 500 mg 4-17 capsule by ity of capsule 13:23: mouth 4 [place] [address] (four) Medical times Branch daily. cephALEXin 2023-0 Yes 500mg Take 1 Univ ers 500 mg 4-17 capsule by ity of capsule 13:23: mouth 4 [place] [address] (four) Medical times Branch daily. cephALEXin 2023-0 Yes 500mg Take 1 Univ ers 500 mg 4-17 capsule by ity of capsule 13:23: mouth 4 [place] [address] (four) Medical times Branch daily. cephALEXin 2023-0 Yes 500mg Take 1 Univ ers 500 mg 4-17 capsule by ity of capsule 13:23: mouth 4 [place] [address] (four) Medical times Branch daily. cephALEXin 2023-0 Yes 500mg Take 1 Univ ers 500 mg 4-17 capsule by ity of capsule 13:23: mouth 4 [place] [address] (four) Medical times Branch daily. cephALEXin 2023-0 Yes 500mg Take 1 Univ ers 500 mg 4-17 capsule by ity of capsule 13:23: mouth 4 [place] [address] (four) Medical times Branch daily. cephALEXin 2023-0 Yes 500mg Take 1 Univ ers 500 mg 4-17 capsule by ity of capsule 13:23: mouth 4 [place] [address] (four) Medical times Branch daily. cephALEXin 2023-0 Yes 500mg Take 1 Univ ers 500 mg 4-17 capsule by ity of capsule 13:23: mouth 4 [place] [address] (four) Medical times Branch daily. cephALEXin 2023-0 Yes 500mg Take 1 Univ ers 500 mg 4-17 capsule by ity of capsule 13:23: mouth 4 [place] [address] (four) Medical times Branch daily. gabapentin 2023-0 Yes [id number] 300mg Take 1 Univers 300 mg 4-17 capsule by ity of capsule 00:00: mouth in [place] 00 the Medical morning Branch and 1 capsule at noon and 1 capsule in the evening. amiodarone Yes [id number] 200mg Take 1 Univers 200 mg 4-17 tablet by ity of tablet 00:00: mouth in [place] 00 the morning. Branch apixaban 5 0 Yes 5mg Take 1 Unive rs mg tablet 4-17 tablet by ity o f 00:00: mouth in [place] the morning Branch and 1 tablet in the evening. Indication s: ATRIAL FIBRILLATI ON atorvastati Yes [id number] 40mg Take 1 Univers n 40 mg 4-17 tablet by ity of tablet 00:00: mouth at [place] [address] bedtime. Medical Branch SERTraline Yes [id number] 100mg Take 1 Univers 100 mg 4-17 tablet by ity of tablet 00:00: mouth in [place] 00 the morning. Branch lisinopriL Yes [id number] 2.5mg Take 1 Univers 2.5 mg 4-17 tablet by ity of tablet 00:00: mouth in [place] the morning. Branch metoprolol Yes [id number] 25mg Take 1 U nivers tartrate 25 4-17 tablet by ity of mg tablet 00:00: mouth in [place] [facility] the morning Branch and 1 tablet in the evening. blood sugar Yes [id number] Check U nivers diagnostic 4-17 blood ity of strip 00:00: sugar 2 [place] 00 times a Medical day. Branch E11.9. Brand per insurance. Uses ACCU-CHEK machine Lancets Yes [id number] Check Unive rs Misc 4-17 blood ity of 00:00: sugar 2 [place] 00 times a Medical day. Branch E11.9. Brand per insurance. gabapentin Yes [id number] 300mg Take 1 Univers 300 mg 4-17 capsule by ity of capsule 00:00: mouth in [place] 00 the morning Branch and 1 capsule at noon and 1 capsule in the evening. amiodarone Yes [id number] 200mg Take 1 Univers 200 mg 4-17 tablet by ity of tablet 00:00: mouth in [place] 00 the morning. Branch apixaban 5 0 Yes 5mg Take 1 Unive rs mg tablet 4-17 tablet by ity o f 00:00: mouth in [place] 00 the Medical morning Branch and 1 tablet in the evening. Indication s: ATRIAL FIBRILLATI ON atorvastati Yes [id number] 40mg Take 1 Univers n 40 mg 4-17 tablet by ity of tablet 00:00: mouth at [place] 00 bedtime. Medical Branch SERTraline Yes [id number] 100mg Take 1 Univers 100 mg 4-17 tablet by ity of tablet 00:00: mouth in [place] 00 the morning. Branch lisinopriL Yes [id number] 2.5mg Take 1 Univers 2.5 mg 4-17 tablet by ity of tablet 00:00: mouth in [place] 00 the morning. Branch metoprolol Yes [id number] 25mg Take 1 U nivers tartrate 25 4-17 tablet by ity of mg tablet 00:00: mouth in [place] [facility] 00 the morning Branch and 1 tablet in the evening. blood sugar Yes [id number] Check U nivers diagnostic 4-17 blood ity of strip 00:00: sugar 2 [place] 00 times a Medical day. Branch E11.9. Brand per insurance. Uses ACCU-CHEK machine Lancets Yes [id number] Check Unive rs Misc 4-17 blood ity of 00:00: sugar 2 [place] 00 times a Medical day. Branch E11.9. Brand per insurance. gabapentin Yes [id number] 300mg Take 1 Univers 300 mg 4-17 capsule by ity of capsule 00:00: mouth in [place] 00 the morning Branch and 1 capsule at noon and 1 capsule in the evening. amiodarone Yes [id number] 200mg Take 1 Univers 200 mg 4-17 tablet by ity of tablet 00:00: mouth in [place] 00 the morning. Branch apixaban 5 0 Yes 5mg Take 1 Unive rs mg tablet 4-17 tablet by ity o f 00:00: mouth in [place] 00 the morning Branch and 1 tablet in the evening. Indication s: ATRIAL FIBRILLATI ON atorvastati Yes [id number] 40mg Take 1 Univers n 40 mg 4-17 tablet by ity of tablet 00:00: mouth at [place] 00 bedtime. Medical Branch SERTraline Yes [id number] 100mg Take 1 Univers 100 mg 4-17 tablet by ity of tablet 00:00: mouth in [place] the morning. Branch lisinopriL 0 Yes [id number] 2.5mg Take 1 Univers 2.5 mg 4-17 tablet by ity of tablet 00:00: mouth in [place] the morning. Branch metoprolol Yes [id number] 25mg Take 1 U nivers tartrate 25 4-17 tablet by ity of mg tablet 00:00: mouth in [place] [facility] the morning Branch and 1 tablet in the evening. blood sugar Yes [id number] Check U nivers diagnostic 4-17 blood ity of strip 00:00: sugar 2 [place] times a Medical day. Branch E11.9. Brand per insurance. Uses ACCU-CHEK machine Lancets Yes [id number] Check Unive rs Misc 4-17 blood ity of 00:00: sugar 2 [place] times a Medical day. Branch E11.9. Brand per insurance. gabapentin Yes [id number] 300mg Take 1 Univers 300 mg 4-17 capsule by ity of capsule 00:00: mouth in [place] the morning Branch and 1 capsule at noon and 1 capsule in the evening. amiodarone Yes [id number] 200mg Take 1 Univers 200 mg 4-17 tablet by ity of tablet 00:00: mouth in [place] the morning. Branch apixaban 5 0 Yes 5mg Take 1 Unive rs mg tablet 4-17 tablet by ity o f 00:00: mouth in [place] the morning Branch and 1 tablet in the evening. Indication s: ATRIAL FIBRILLATI ON atorvastati Yes [id number] 40mg Take 1 Univers n 40 mg 4-17 tablet by ity of tablet 00:00: mouth at [place] [address] bedtime. Medical Branch SERTraline Yes [id number] 100mg Take 1 Univers 100 mg 4-17 tablet by ity of tablet 00:00: mouth in [place] the morning. Branch lisinopriL Yes [id number] 2.5mg Take 1 Univers 2.5 mg 4-17 tablet by ity of tablet 00:00: mouth in [place] the morning. Branch metoprolol 0 Yes [id number] 25mg Take 1 U nivers tartrate 25 4-17 tablet by ity of mg tablet 00:00: mouth in [place] [facility] the morning Branch and 1 tablet in the evening. blood sugar 2022-0 Yes [id number] Check U nivers diagnostic 4-17 blood ity of strip 00:00: sugar 2 [place] times a Medical day. Branch E11.9. Brand per insurance. Uses ACCU-CHEK machine Lancets 0 Yes [id number] Check Unive rs Misc 4-17 blood ity of 00:00: sugar 2 [place] times a Medical day. Branch E11.9. Brand per insurance. gabapentin 0 Yes [id number] 300mg Take 1 Univers 300 mg 4-17 capsule by ity of capsule 00:00: mouth in [place] the morning Branch and 1 capsule at noon and 1 capsule in the evening. amiodarone 0 Yes [id number] 200mg Take 1 Univers 200 mg 4-17 tablet by ity of tablet 00:00: mouth in [place] the morning. Branch apixaban 5 0 Yes 5mg Take 1 Unive rs mg tablet 4-17 tablet by ity o f 00:00: mouth in [place] the morning Branch and 1 tablet in the evening. Indication s: ATRIAL FIBRILLATI ON atorvastati 2022-0 Yes [id number] 40mg Take 1 Univers n 40 mg 4-17 tablet by ity of tablet 00:00: mouth at [place] [address] bedtime. Medical Branch SERTraline 2022-0 Yes [id number] 100mg Take 1 Univers 100 mg 4-17 tablet by ity of tablet 00:00: mouth in [place] the morning. Branch lisinopriL 2022-0 Yes [id number] 2.5mg Take 1 Univers 2.5 mg 4-17 tablet by ity of tablet 00:00: mouth in [place] the morning. Branch metoprolol 2022-0 Yes [id number] 25mg Take 1 U nivers tartrate 25 4-17 tablet by ity of mg tablet 00:00: mouth in [place] [facility] the morning Branch and 1 tablet in the evening. blood sugar 2022-0 Yes [id number] Check U nivers diagnostic 4-17 blood ity of strip 00:00: sugar 2 [place] 00 times a Medical day. Branch E11.9. Brand per insurance. Uses ACCU-CHEK machine Lancets Yes [id number] Check Unive rs Misc 4-17 blood ity of 00:00: sugar 2 [place] 00 times a Medical day. Branch E11.9. Brand per insurance. gabapentin Yes [id number] 300mg Take 1 Univers 300 mg 4-17 capsule by ity of capsule 00:00: mouth in [place] 00 the morning Branch and 1 capsule at noon and 1 capsule in the evening. amiodarone Yes [id number] 200mg Take 1 Univers 200 mg 4-17 tablet by ity of tablet 00:00: mouth in [place] 00 the morning. Branch apixaban 5 Yes 5mg Take 1 Unive rs mg tablet 4-17 tablet by ity o f 00:00: mouth in [place] the morning Branch and 1 tablet in the evening. Indication s: ATRIAL FIBRILLATI ON atorvastati Yes [id number] 40mg Take 1 Univers n 40 mg 4-17 tablet by ity of tablet 00:00: mouth at [place] [address] bedtime. Medical Branch SERTraline Yes [id number] 100mg Take 1 Univers 100 mg 4-17 tablet by ity of tablet 00:00: mouth in [place] the morning. Branch lisinopriL Yes [id number] 2.5mg Take 1 Univers 2.5 mg 4-17 tablet by ity of tablet 00:00: mouth in [place] 00 the morning. Branch metoprolol Yes [id number] 25mg Take 1 U nivers tartrate 25 4-17 tablet by ity of mg tablet 00:00: mouth in [place] [facility] 00 the morning Branch and 1 tablet in the evening. blood sugar Yes [id number] Check U nivers diagnostic 4-17 blood ity of strip 00:00: sugar 2 [place] 00 times a Medical day. Branch E11.9. Brand per insurance. Uses ACCU-CHEK machine Lancets 0 Yes [id number] Check Unive rs Misc 4-17 blood ity of 00:00: sugar 2 [place] 00 times a Medical day. Branch E11.9. Brand per insurance. gabapentin Yes [id number] 300mg Take 1 Univers 300 mg 4-17 capsule by ity of capsule 00:00: mouth in [place] 00 the morning Branch and 1 capsule at noon and 1 capsule in the evening. amiodarone 0 Yes [id number] 200mg Take 1 Univers 200 mg 4-17 tablet by ity of tablet 00:00: mouth in [place] 00 the morning. Branch apixaban 5 0 Yes 5mg Take 1 Unive rs mg tablet 4-17 tablet by ity o f 00:00: mouth in [place] 00 the morning Branch and 1 tablet in the evening. Indication s: ATRIAL FIBRILLATI ON atorvastati Yes [id number] 40mg Take 1 Univers n 40 mg 4-17 tablet by ity of tablet 00:00: mouth at [place] [address] bedtime. Medical Branch SERTraline Yes [id number] 100mg Take 1 Univers 100 mg 4-17 tablet by ity of tablet 00:00: mouth in [place] the morning. Branch lisinopriL Yes [id number] 2.5mg Take 1 Univers 2.5 mg 4-17 tablet by ity of tablet 00:00: mouth in [place] [address] the morning. Branch metoprolol Yes [id number] 25mg Take 1 U nivers tartrate 25 4-17 tablet by ity of mg tablet 00:00: mouth in [place] [facility] 00 the morning Branch and 1 tablet in the evening. blood sugar 0 Yes [id number] Check U nivers diagnostic 4-17 blood ity of strip 00:00: sugar 2 [place] 00 times a Medical day. Branch E11.9. Brand per insurance. Uses ACCU-CHEK machine Lancets 0 Yes [id number] Check Unive rs Misc 4-17 blood ity of 00:00: sugar 2 [place] 00 times a Medical day. Branch E11.9. Brand per insurance. gabapentin 0 Yes [id number] 300mg Take 1 Univers 300 mg 4-17 capsule by ity of capsule 00:00: mouth in [place] 00 the Medical morning Branch and 1 capsule at noon and 1 capsule in the evening. amiodarone 2022-0 Yes [id number] 200mg Take 1 Univers 200 mg 4-17 tablet by ity of tablet 00:00: mouth in [place] 00 the Medical morning. Branch apixaban 5 Yes 5mg Take 1 Unive rs mg tablet 4-17 tablet by ity o f 00:00: mouth in [place] the morning Branch and 1 tablet in the evening. Indication s: ATRIAL FIBRILLATI ON atorvastati Yes [id number] 40mg Take 1 Univers n 40 mg 4-17 tablet by ity of tablet 00:00: mouth at [place] [address] bedtime. Medical Branch SERTraline Yes [id number] 100mg Take 1 Univers 100 mg 4-17 tablet by ity of tablet 00:00: mouth in [place] 00 the morning. Branch lisinopriL Yes [id number] 2.5mg Take 1 Univers 2.5 mg 4-17 tablet by ity of tablet 00:00: mouth in [place] 00 the morning. Branch metoprolol Yes [id number] 25mg Take 1 U nivers tartrate 25 4-17 tablet by ity of mg tablet 00:00: mouth in [place] [facility] the morning Branch and 1 tablet in the evening. blood sugar Yes [id number] Check U nivers diagnostic 4-17 blood ity of strip 00:00: sugar 2 [place] 00 times a Medical day. Branch E11.9. Brand per insurance. Uses ACCU-CHEK machine Lancets Yes [id number] Check Unive rs Misc 4-17 blood ity of 00:00: sugar 2 [place] 00 times a Medical day. Branch E11.9. Brand per insurance. gabapentin Yes [id number] 300mg Take 1 Univers 300 mg 4-17 capsule by ity of capsule 00:00: mouth in [place] the morning Branch and 1 capsule at noon and 1 capsule in the evening. amiodarone Yes [id number] 200mg Take 1 Univers 200 mg 4-17 tablet by ity of tablet 00:00: mouth in [place] 00 the morning. Branch apixaban 5 Yes 5mg Take 1 Unive rs mg tablet 4-17 tablet by ity o f 00:00: mouth in [place] the morning Branch and 1 tablet in the evening. Indication s: ATRIAL FIBRILLATI ON atorvastati Yes [id number] 40mg Take 1 Univers n 40 mg 4-17 tablet by ity of tablet 00:00: mouth at [place] [address] bedtime. Medical Branch SERTraline Yes [id number] 100mg Take 1 Univers 100 mg 4-17 tablet by ity of tablet 00:00: mouth in [place] the morning. Branch lisinopriL Yes [id number] 2.5mg Take 1 Univers 2.5 mg 4-17 tablet by ity of tablet 00:00: mouth in [place] the morning. Branch metoprolol Yes [id number] 25mg Take 1 U nivers tartrate 25 4-17 tablet by ity of mg tablet 00:00: mouth in [place] [facility] the morning Branch and 1 tablet in the evening. blood sugar Yes [id number] Check U nivers diagnostic 4-17 blood ity of strip 00:00: sugar 2 [place] times a Medical day. Branch E11.9. Brand per insurance. Uses ACCU-CHEK machine Lancets Yes [id number] Check Unive rs Misc 4-17 blood ity of 00:00: sugar 2 [place] times a Medical day. Branch E11.9. Brand per insurance. gabapentin Yes [id number] 300mg Take 1 Univers 300 mg 4-17 capsule by ity of capsule 00:00: mouth in [place] the morning Branch and 1 capsule at noon and 1 capsule in the evening. amiodarone Yes [id number] 200mg Take 1 Univers 200 mg 4-17 tablet by ity of tablet 00:00: mouth in [place] the morning. Branch apixaban 5 Yes 5mg Take 1 Unive rs mg tablet 4-17 tablet by ity o f 00:00: mouth in [place] the morning Branch and 1 tablet in the evening. Indication s: ATRIAL FIBRILLATI ON atorvastati Yes [id number] 40mg Take 1 Univers n 40 mg 4-17 tablet by ity of tablet 00:00: mouth at [place] [address] bedtime. Medical Branch SERTraline Yes [id number] 100mg Take 1 Univers 100 mg 4-17 tablet by ity of tablet 00:00: mouth in [place] the morning. Branch lisinopriL 0 Yes [id number] 2.5mg Take 1 Univers 2.5 mg 4-17 tablet by ity of tablet 00:00: mouth in [place] 00 the morning. Branch metoprolol Yes [id number] 25mg Take 1 U nivers tartrate 25 4-17 tablet by ity of mg tablet 00:00: mouth in [place] [facility] 00 the morning Branch and 1 tablet in the evening. blood sugar 0 Yes [id number] Check U nivers diagnostic 4-17 blood ity of strip 00:00: sugar 2 [place] times a Medical day. Branch E11.9. Brand per insurance. Uses ACCU-CHEK machine Lancets Yes [id number] Check Unive rs Misc 4-17 blood ity of 00:00: sugar 2 [place] times a Medical day. Branch E11.9. Brand per insurance. gabapentin Yes [id number] 300mg Take 1 Univers 300 mg 4-17 capsule by ity of capsule 00:00: mouth in [place] 00 the morning Branch and 1 capsule at noon and 1 capsule in the evening. amiodarone Yes [id number] 200mg Take 1 [facility] 200 mg 4-17 tablet by ity of tablet 00:00: mouth in [place] 00 the morning. Branch apixaban 5 Yes 5mg Take 1 Unive rs mg tablet 4-17 tablet by ity o f 00:00: mouth in [place] 00 the morning Branch and 1 tablet in the evening. Indication s: ATRIAL FIBRILLATI ON atorvastati 2022-0 Yes [id number] 40mg Take 1 Univers n 40 mg 4-17 tablet by ity of tablet 00:00: mouth at [place] [address] bedtime. Medical Branch SERTraline 0 Yes [id number] 100mg Take 1 [facility] 100 mg 4-17 tablet by ity of tablet 00:00: mouth in [place] 00 the morning. Branch lisinopriL 2022-0 Yes [id number] 2.5mg Take 1 Univers 2.5 mg 4-17 tablet by ity of tablet 00:00: mouth in [place] 00 the morning. Branch metoprolol 2022-0 Yes [id number] 25mg Take 1 U nivers tartrate 25 4-17 tablet by ity of mg tablet 00:00: mouth in [facility] s the Medical morning Branch and 1 tablet in the evening. blood sugar Yes [id number] Check U nivers diagnostic 4-17 blood ity of strip 00:00: sugar 2 [place] times a Medical day. Branch E11.9. Brand per insurance. Uses ACCU-CHEK machine Lancets Yes [id number] Check Unive rs Misc 4-17 blood ity of 00:00: sugar 2 [place] times a Medical day. Branch E11.9. Brand per insurance. gabapentin Yes [id number] 300mg Take 1 Univers 300 mg 4-17 capsule by ity of capsule 00:00: mouth in [place] the morning Branch and 1 capsule at noon and 1 capsule in the evening. amiodarone Yes [id number] 200mg Take 1 [facility] 200 mg 4-17 tablet by ity of tablet 00:00: mouth in [place] the morning. Branch apixaban 5 Yes 5mg Take 1 Unive rs mg tablet 4-17 tablet by ity o f 00:00: mouth in [place] the morning Branch and 1 tablet in the evening. Indication s: ATRIAL FIBRILLATI ON atorvastati Yes [id number] 40mg Take 1 Univers n 40 mg 4-17 tablet by ity of tablet 00:00: mouth at [place] [address] bedtime. Medical Branch SERTraline Yes [id number] 100mg Take 1 [facility] 100 mg 4-17 tablet by ity of tablet 00:00: mouth in [place] the morning. Branch lisinopriL Yes [id number] 2.5mg Take 1 Univers 2.5 mg 4-17 tablet by ity of tablet 00:00: mouth in [place] the Medical morning. Branch metoprolol Yes [id number] 25mg Take 1 U nivers tartrate 25 4-17 tablet by ity of mg tablet 00:00: mouth in [place] [facility] the morning Branch and 1 tablet in the evening. blood sugar 2022-0 Yes [id number] Check U nivers diagnostic 4-17 blood ity of strip 00:00: sugar 2 [place] 00 times a Medical day. Branch E11.9. Brand per insurance. Uses ACCU-CHEK machine Lancets Yes [id number] Check Unive rs Misc 4-17 blood ity of 00:00: sugar 2 [place] 00 times a Medical day. Branch E11.9. Brand per insurance. gabapentin Yes [id number] 300mg Take 1 [facility] 300 mg 4-17 capsule by ity of capsule 00:00: mouth in [place] 00 the morning Branch and 1 capsule at noon and 1 capsule in the evening. amiodarone Yes [id number] 200mg Take 1 [facility] 200 mg 4-17 tablet by ity of tablet 00:00: mouth in [place] the morning. Branch apixaban 5 0 Yes 5mg Take 1 Unive rs mg tablet 4-17 tablet by ity o f 00:00: mouth in [place] the morning Branch and 1 tablet in the evening. Indication s: ATRIAL FIBRILLATI ON atorvastati Yes [id number] 40mg Take 1 Univers n 40 mg 4-17 tablet by ity of tablet 00:00: mouth at [place] [address] bedtime. Medical Branch SERTraline Yes [id number] 100mg Take 1 [facility] 100 mg 4-17 tablet by ity of tablet 00:00: mouth in [place] the morning. Branch lisinopriL Yes [id number] 2.5mg Take 1 Univers 2.5 mg 4-17 tablet by ity of tablet 00:00: mouth in [place] the morning. Branch metoprolol Yes [id number] 25mg Take 1 U nivers tartrate 25 4-17 tablet by ity of mg tablet 00:00: mouth in [place] [facility] the morning Branch and 1 tablet in the evening. blood sugar Yes [id number] Check U nivers diagnostic 4-17 blood ity of strip 00:00: sugar 2 [place] 00 times a Medical day. Branch E11.9. Brand per insurance. Uses ACCU-CHEK machine Lancets Yes [id number] Check Unive rs Misc 4-17 blood ity of 00:00: sugar 2 [place] 00 times a Medical day. Branch E11.9. Brand per insurance. gabapentin Yes [id number] 300mg Take 1 [facility] 300 mg 4-17 capsule by ity of capsule 00:00: mouth in [place] the Medical morning Branch and 1 capsule at noon and 1 capsule in the evening. amiodarone Yes [id number] 200mg Take 1 [facility] 200 mg 4-17 tablet by ity of tablet 00:00: mouth in [place] 00 the morning. Branch apixaban 5 0 Yes 5mg Take 1 Unive rs mg tablet 4-17 tablet by ity o f 00:00: mouth in [place] the morning Branch and 1 tablet in the evening. Indication s: ATRIAL FIBRILLATI ON atorvastati Yes [id number] 40mg Take 1 [facility] n 40 mg 4-17 tablet by ity of tablet 00:00: mouth at [place] [address] bedtime. Medical Branch SERTraline Yes [id number] 100mg Take 1 [facility] 100 mg 4-17 tablet by ity of tablet 00:00: mouth in [place] 00 the morning. Branch lisinopriL Yes [id number] 2.5mg Take 1 [facility] 2.5 mg 4-17 tablet by ity of tablet 00:00: mouth in [place] 00 the morning. Branch metoprolol Yes [id number] 25mg Take 1 U nivers tartrate 25 4-17 tablet by ity of mg tablet 00:00: mouth in [place] [facility] 00 the morning Branch and 1 tablet in the evening. blood sugar Yes [id number] Check U nivers diagnostic 4-17 blood ity of strip 00:00: sugar 2 [place] 00 times a Medical day. Branch E11.9. Brand per insurance. Uses ACCU-CHEK machine Lancets Yes [id number] Check Unive rs Misc 4-17 blood ity of 00:00: sugar 2 [place] 00 times a Medical day. Branch E11.9. Brand per insurance. gabapentin Yes [id number] 300mg Take 1 [facility] 300 mg 4-17 capsule by ity of capsule 00:00: mouth in [place] 00 the Medical morning Branch and 1 capsule at noon and 1 capsule in the evening. amiodarone 0 Yes [id number] 200mg Take 1 [facility] 200 mg 4-17 tablet by ity of tablet 00:00: mouth in [place] 00 the morning. Branch apixaban 5 0 Yes 5mg Take 1 Unive rs mg tablet 4-17 tablet by ity o f 00:00: mouth in [place] 00 the Medical morning Branch and 1 tablet in the evening. Indication s: ATRIAL FIBRILLATI ON atorvastati Yes [id number] 40mg Take 1 [facility] n 40 mg 4-17 tablet by ity of tablet 00:00: mouth at [place] 00 bedtime. Medical Branch SERTraline Yes [id number] 100mg Take 1 [facility] 100 mg 4-17 tablet by ity of tablet 00:00: mouth in [place] 00 the morning. Branch lisinopriL Yes [id number] 2.5mg Take 1 [facility] 2.5 mg 4-17 tablet by ity of tablet 00:00: mouth in [place] 00 the morning. Branch metoprolol Yes [id number] 25mg Take 1 U nivers tartrate 25 4-17 tablet by ity of mg tablet 00:00: mouth in [place] [facility] 00 the morning Branch and 1 tablet in the evening. blood sugar Yes [id number] Check U nivers diagnostic 4-17 blood ity of strip 00:00: sugar 2 [place] 00 times a Medical day. Branch E11.9. Brand per insurance. Uses ACCU-CHEK machine Lancets Yes [id number] Check Unive rs Misc 4-17 blood ity of 00:00: sugar 2 [place] 00 times a Medical day. Branch E11.9. Brand per insurance. gabapentin Yes [id number] 300mg Take 1 [facility] 300 mg 4-17 capsule by ity of capsule 00:00: mouth in [place] 00 the morning Branch and 1 capsule at noon and 1 capsule in the evening. amiodarone Yes [id number] 200mg Take 1 [facility] 200 mg 4-17 tablet by ity of tablet 00:00: mouth in [place] 00 the morning. Branch apixaban 5 0 Yes 5mg Take 1 Unive rs mg tablet 4-17 tablet by ity o f 00:00: mouth in [place] 00 the Medical morning Branch and 1 tablet in the evening. Indication s: ATRIAL FIBRILLATI ON atorvastati Yes [id number] 40mg Take 1 [facility] n 40 mg 4-17 tablet by ity of tablet 00:00: mouth at [place] 00 bedtime. Medical Branch SERTraline 0 Yes [id number] 100mg Take 1 [facility] 100 mg 4-17 tablet by ity of tablet 00:00: mouth in [place] the morning. Branch lisinopriL 0 Yes [id number] 2.5mg Take 1 [facility] 2.5 mg 4-17 tablet by ity of tablet 00:00: mouth in [place] the morning. Branch metoprolol 0 Yes [id number] 25mg Take 1 U nivers tartrate 25 4-17 tablet by ity of mg tablet 00:00: mouth in [place] [facility] the morning Branch and 1 tablet in the evening. blood sugar 0 Yes [id number] Check U nivers diagnostic 4-17 blood ity of strip 00:00: sugar 2 [place] times a Medical day. Branch E11.9. Brand per insurance. Uses ACCU-CHEK machine Lancets Yes [id number] Check Unive rs Misc 4-17 blood ity of 00:00: sugar 2 [place] times a Medical day. Branch E11.9. Brand per insurance. gabapentin 0 Yes [id number] 300mg Take 1 [facility] 300 mg 4-17 capsule by ity of capsule 00:00: mouth in [place] the morning Branch and 1 capsule at noon and 1 capsule in the evening. amiodarone 0 Yes [id number] 200mg Take 1 [facility] 200 mg 4-17 tablet by ity of tablet 00:00: mouth in [place] the morning. Branch apixaban 5 0 Yes 5mg Take 1 Unive rs mg tablet 4-17 tablet by ity o f 00:00: mouth in [place] the morning Branch and 1 tablet in the evening. Indication s: ATRIAL FIBRILLATI ON atorvastati 2022-0 Yes [id number] 40mg Take 1 Univers n 40 mg 4-17 tablet by ity of tablet 00:00: mouth at [place] [address] bedtime. Medical Branch SERTraline 2022-0 Yes [id number] 100mg Take 1 [facility] 100 mg 4-17 tablet by ity of tablet 00:00: mouth in [place] the morning. Branch lisinopriL 2022-0 Yes [id number] 2.5mg Take 1 Univers 2.5 mg 4-17 tablet by ity of tablet 00:00: mouth in [place] 00 the Medical morning. Branch metoprolol 2022-0 Yes [id number] 25mg Take 1 U nivers tartrate 25 4-17 tablet by ity of mg tablet 00:00: mouth in [place] [facility] the morning Branch and 1 tablet in the evening. blood sugar 2022-0 Yes [id number] Check U nivers diagnostic 4-17 blood ity of strip 00:00: sugar 2 [place] times a Medical day. Branch E11.9. Brand per insurance. Uses ACCU-CHEK machine Lancets 2022-0 Yes [id number] Check Unive rs Misc 4-17 blood ity of 00:00: sugar 2 [place] times a Medical day. Branch E11.9. Brand per insurance. gabapentin 2022-0 Yes [id number] 300mg Take 1 [facility] 300 mg 4-17 capsule by ity of capsule 00:00: mouth in [place] the morning Branch and 1 capsule at noon and 1 capsule in the evening. amiodarone 2022-0 Yes [id number] 200mg Take 1 [facility] 200 mg 4-17 tablet by ity of tablet 00:00: mouth in [place] the morning. Branch apixaban 5 0 Yes 5mg Take 1 Unive rs mg tablet 4-17 tablet by ity o f 00:00: mouth in [place] the morning Branch and 1 tablet in the evening. Indication s: ATRIAL FIBRILLATI ON atorvastati 2022-0 Yes [id number] 40mg Take 1 Univers n 40 mg 4-17 tablet by ity of tablet 00:00: mouth at [place] [address] bedtime. Medical Branch SERTraline 2022-0 Yes [id number] 100mg Take 1 [facility] 100 mg 4-17 tablet by ity of tablet 00:00: mouth in [place] the morning. Branch lisinopriL 2022-0 Yes [id number] 2.5mg Take 1 Univers 2.5 mg 4-17 tablet by ity of tablet 00:00: mouth in [place] the morning. Branch metoprolol 2022-0 Yes [id number] 25mg Take 1 U nivers tartrate 25 4-17 tablet by ity of mg tablet 00:00: mouth in [place] [facility] the morning Branch and 1 tablet in the evening. blood sugar 2022-0 Yes [id number] Check U nivers diagnostic 4-17 blood ity of strip 00:00: sugar 2 [place] times a Medical day. Branch E11.9. Brand per insurance. Uses ACCU-CHEK machine Lancets Yes [id number] Check Unive rs Misc 4-17 blood ity of 00:00: sugar 2 [place] 00 times a Medical day. Branch E11.9. Brand per insurance. gabapentin Yes [id number] 300mg Take 1 [facility] 300 mg 4-17 capsule by ity of capsule 00:00: mouth in [place] the morning Branch and 1 capsule at noon and 1 capsule in the evening. amiodarone Yes [id number] 200mg Take 1 [facility] 200 mg 4-17 tablet by ity of tablet 00:00: mouth in [place] 00 the morning. Branch apixaban 5 Yes 5mg Take 1 Unive rs mg tablet 4-17 tablet by ity o f 00:00: mouth in [place] the morning Branch and 1 tablet in the evening. Indication s: ATRIAL FIBRILLATI ON atorvastati Yes [id number] 40mg Take 1 Univers n 40 mg 4-17 tablet by ity of tablet 00:00: mouth at [place] [address] bedtime. Medical Branch SERTraline Yes [id number] 100mg Take 1 [facility] 100 mg 4-17 tablet by ity of tablet 00:00: mouth in [place] the morning. Branch lisinopriL Yes [id number] 2.5mg Take 1 Univers 2.5 mg 4-17 tablet by ity of tablet 00:00: mouth in [place] 00 the morning. Branch metoprolol Yes [id number] 25mg Take 1 U nivers tartrate 25 4-17 tablet by ity of mg tablet 00:00: mouth in [place] [facility] 00 the morning Branch and 1 tablet in the evening. blood sugar Yes [id number] Check U nivers diagnostic 4-17 blood ity of strip 00:00: sugar 2 [place] 00 times a Medical day. Branch E11.9. Brand per insurance. Uses ACCU-CHEK machine Lancets 0 Yes [id number] Check Unive rs Misc 4-17 blood ity of 00:00: sugar 2 [place] 00 times a Medical day. Branch E11.9. Brand per insurance. gabapentin Yes [id number] 300mg Take 1 [facility] 300 mg 4-17 capsule by ity of capsule 00:00: mouth in [place] 00 the Medical morning Branch and 1 capsule at noon and 1 capsule in the evening. amiodarone 2022-0 Yes [id number] 200mg Take 1 [facility] 200 mg 4-17 tablet by ity of tablet 00:00: mouth in [place] 00 the morning. Branch apixaban 5 0 Yes 5mg Take 1 Unive rs mg tablet 4-17 tablet by ity o f 00:00: mouth in [place] 00 the morning Branch and 1 tablet in the evening. Indication s: ATRIAL FIBRILLATI ON atorvastati Yes [id number] 40mg Take 1 Univers n 40 mg 4-17 tablet by ity of tablet 00:00: mouth at [place] [address] bedtime. Medical Branch SERTraline Yes [id number] 100mg Take 1 [facility] 100 mg 4-17 tablet by ity of tablet 00:00: mouth in [place] the morning. Branch lisinopriL Yes [id number] 2.5mg Take 1 Univers 2.5 mg 4-17 tablet by ity of tablet 00:00: mouth in [place] [address] the morning. Branch metoprolol Yes [id number] 25mg Take 1 U nivers tartrate 25 4-17 tablet by ity of mg tablet 00:00: mouth in [place] [facility] 00 the morning Branch and 1 tablet in the evening. blood sugar 0 Yes [id number] Check U nivers diagnostic 4-17 blood ity of strip 00:00: sugar 2 [place] 00 times a Medical day. Branch E11.9. Brand per insurance. Uses ACCU-CHEK machine Lancets 0 Yes [id number] Check Unive rs Misc 4-17 blood ity of 00:00: sugar 2 [place] 00 times a Medical day. Branch E11.9. Brand per insurance. gabapentin 0 Yes [id number] 300mg Take 1 Univers 300 mg 4-17 capsule by ity of capsule 00:00: mouth in [place] 00 the Medical morning Branch and 1 capsule at noon and 1 capsule in the evening. amiodarone 2022-0 Yes [id number] 200mg Take 1 Univers 200 mg 4-17 tablet by ity of tablet 00:00: mouth in [place] 00 the Medical morning. Branch apixaban 5 0 Yes 5mg Take 1 Unive rs mg tablet 4-17 tablet by ity o f 00:00: mouth in [place] 00 the Medical morning Branch and 1 tablet in the evening. Indication s: ATRIAL FIBRILLATI ON atorvastati 0 Yes [id number] 40mg Take 1 Univers n 40 mg 4-17 tablet by ity of tablet 00:00: mouth at [place] [address] bedtime. Medical Branch SERTraline Yes [id number] 100mg Take 1 [facility] 100 mg 4-17 tablet by ity of tablet 00:00: mouth in [place] 00 the Medical morning. Branch lisinopriL Yes [id number] 2.5mg Take 1 Univers 2.5 mg 4-17 tablet by ity of tablet 00:00: mouth in [place] 00 the Medical morning. Branch metoprolol Yes [id number] 25mg Take 1 U nivers tartrate 25 4-17 tablet by ity of mg tablet 00:00: mouth in [place] [facility] 00 the Medical morning Branch and 1 tablet in the evening. blood sugar Yes [id number] Check U nivers diagnostic 4-17 blood ity of strip 00:00: sugar 2 [place] 00 times a Medical day. Branch E11.9. Brand per insurance. Uses ACCU-CHEK machine Lancets Yes [id number] Check Unive rs Misc 4-17 blood ity of 00:00: sugar 2 [place] 00 times a Medical day. Branch E11.9. Brand per insurance. SERTraline Yes [id number] 100mg Take 1 Univers 100 mg 4-17 tablet by ity of tablet 00:00: mouth in [place] 00 the Medical morning. Branch SERTraline 2022-0 3- No [id number] 100mg Take 1 Univers 100 mg 4-17 05-19 tablet by ity of tablet 00:00: 00:00 mouth in [place] 00 :00 the Medical morning. Branch gabapentin 2022-0 2022- No [id number] 300mg Take 1 [facility] 300 mg 4-17 05-18 capsule by ity of capsule 00:00: 00:00 mouth in [place] 00 :00 the Medical morning Branch and 1 capsule at noon and 1 capsule in the evening. amiodarone 2022- No [id number] 200mg Take 1 Univers 200 mg 08-05-18 tablet by ity of tablet 00:00: 00:00 mouth in [place] 00 :00 the Medical morning. Branch apixaban 5 2022- No 5mg Take 1 Univ ers mg tablet 08-05-18 tablet by ity of 00:00: 00:00 mouth in [place] 00 :00 the Medical morning Branch and 1 tablet in the evening. Indication s: ATRIAL FIBRILLATI ON atorvastati 2022- No [id number] 40mg Take 1 Univers n 40 mg 08-05-18 tablet by ity of tablet 00:00: 00:00 mouth at [place] 00 :00 bedtime. Medical Branch lisinopriL 2022- No [id number] 2.5mg Take 1 Univers 2.5 mg 08-05-18 tablet by ity of tablet 00:00: 00:00 mouth in [place] 00 :00 the Medical morning. Branch metoprolol 2022- No [id number] 25mg Take 1 Univers tartrate 25 08-0518 tablet by it y of mg tablet 00:00: 00:00 mouth in [facility] as 00 :00 the Medical morning Branch and 1 tablet in the evening. blood sugar 2022- No [id number] Check Univers diagnostic 08-05-18 blood ity of strip 00:00: 00:00 sugar 2 [place] 00 :00 times a Medical day. Branch E11.9. Brand per insurance. Uses ACCU-CHEK machine Lancets 2022- No [id number] Check Univ ers Misc 08-05-18 blood ity of 00:00: 00:00 sugar 2 [place] 00 :00 times a Medical day. Branch E11.9. Brand per insurance. blood sugar 2022- No [id number] Check Univers diagnostic 08-05-17 blood ity of strip 00:00: 00:00 sugar 2 [place] 00 :00 times a Medical day. Branch E11.9. Brand per insurance. Uses ACCU-CHEK machine blood sugar 2022- No [id number] Check Univers diagnostic 4-05 08-17 blood ity of strip 00:00: 00:00 sugar 2 [place] 00 :00 times a Medical day. Branch E11.9. Brand per insurance. Uses ACCU-CHEK machine blood sugar 2022-0 3- No [id number] Check Univers diagnostic 08-05 blood ity of strip 00:00: 00:00 sugar 2 [place] 00 :00 times a Medical day. Branch E11.9. Brand per insurance. Uses ACCU-CHEK machine amiodarone 2023-0 Yes 200mg Take 1 Univ ers 200 mg 4-12 tablet by ity of tablet 00:00: mouth in [place] 00 the Medical morning. Branch SERTraline 2023-0 Yes 25mg Take 1 Unive rs 25 mg 4-12 tablet by ity of tablet 00:00: mouth in [place] 00 the Medical morning. Branch amiodarone 2023-0 Yes 200mg Take 1 Univ ers 200 mg 4-12 tablet by ity of tablet 00:00: mouth in [place] 00 the Medical morning. Branch SERTraline 2023-0 Yes 25mg Take 1 Unive rs 25 mg 4-12 tablet by ity of tablet 00:00: mouth in [place] 00 the Medical morning. Branch amiodarone 2023-0 Yes 200mg Take 1 Univ ers 200 mg 4-12 tablet by ity of tablet 00:00: mouth in [place] 00 the Medical morning. Branch SERTraline 2023-0 Yes 25mg Take 1 Unive rs 25 mg 4-12 tablet by ity of tablet 00:00: mouth in [place] 00 the Medical morning. Branch amiodarone 2023-0 2023- No 200mg Take 1 Uni vers 200 mg 4-03 24-17 tablet by ity of tablet 00:00: 00:00 mouth in [place] 00 :00 the Medical morning. Branch SERTraline 2023-0 2023- No 100mg Take 1 Uni vers 100 mg 4-12 -17 tablet by ity of tablet 00:00: 00:00 mouth in [place] 00 :00 the Medical morning. Branch amiodarone 2023-0 2023- No 200mg Take 1 Uni vers 200 mg 4-12 -17 tablet by ity of tablet 00:00: 00:00 mouth in [place] 00 :00 the Medical morning. Branch SERTraline 2023-0 2023- No 100mg Take 1 Uni vers 100 mg 4-12 -17 tablet by ity of tablet 00:00: 00:00 mouth in [place] 00 :00 the Medical morning. Branch amiodarone 2022- No 200mg Take 1 Uni vers 200 mg 07-31 tablet by ity of tablet 00:00: 00:00 mouth in [place] 00 :00 the Medical morning. Branch SERTraline 2022- No 100mg Take 1 Uni vers 100 mg 07-31 tablet by ity of tablet 00:00: 00:00 mouth in [place] 00 :00 the Medical morning. Branch sodium Yes Topical, Univers hypochlorit 4-11 BID, First it y of e 0.025% 01:00: dose on [place] ([facility]) Fri Medical solution 07/29/[address] [facility] h 2000, Until Discontinu ed, Routine iron 2022- No 500mg 500 mg, IV Unive rs sucrose 07-29 Infusion, ity of (VENOFER) 19:15: 23:11 ONCE, [place] 500 mg in 00 :00 Administer Medi dilshad NaCl 0.9% over 2.5 Branch (NS) 250 mL Hours, On infusion 07/29/22 at 1415, For 1 dose iopamidol 2022- No [id number] 80mL 80 mL, Univers (ISOVUE 07-29 Intravenou [...] 1000mL at 100 Univ ers ringers IV 07-29- mL/hr, ity of infusion 15:30: 15:36 1,000 mL, [place] 1,000 mL 00 :20 Intravenou Medic al s, ONCE, 1 Branch dose, On 07/29/22 at 1030, Routine acetaminoph Yes 650mg 650 mg, Un anil en 4-10 Oral, ity of (TYLENOL) 01:52: Q6HPRN, [place] tablet 650 10 Starting Medic al mg [...] [place] mg 00 First dose Medical on [facility] 07/28/22 at 0900, Until Discontinu ed, Routine SERTraline Yes 25mg 25 mg, Unive rs (ZOLOFT) 07-28 Oral, ity of tablet 25 14:00: DAILY, [place] mg 00 First dose Medical on [place] Branch 07/28/22 at 0900, Until Discontinu ed, Routine Sliding Yes Subcutaneo Univ ers Scale - us, TID ity of Insulin - 13:00: MEALS+HS, [place] as Lispro 00 First dose Medical (HumaLOG) + on [facility] Fsbg 07/28/22 at Testing 0800, Until Discontinu ed, Routine levETIRAcet 2022- No 500mg 500 mg, U nivers am (KEPPRA) 07-28 Oral, BID, i ty of tablet 500 13:00: 12:48 First dose [place] mg 00 :43 on [place] Medical 07/28/22 at Branch 0800, Until Discontinu ed, Routine vancomycin 2022- No 15mg/kg 1,500 mg Univers (VANCOCIN) 07-28 (rounded ity of 1,500 mg in 11:00: 13:55 from 1,380 [place] NaCl 0.9% 00 :31 mg = 15 Medical (NS) 500 mL mg/kg ?92 [facility] VIAL-MATE kg), IV IV Piggyback, piggyback Q24H [...] :00 ONCE, 1 Medical dose, On Branch 07/28/22 at 0530, Routine NaCl 0.9% 2022- No 500mL at 999 [facility] ers (NS) bolus 07-28- mL/hr, 500 it y of infusion 09:54: 11:57 mL, IV [place] 500 mL 00 :00 Piggyback, Medical ONCE, 1 Branch dose, On [place] 07/28/22 at 0500, STAT lactated 2022- No 1000mL at 999 [facility] ers ringers IV 07-28- mL/hr, ity of infusion 08:30: 09:06 1,000 mL, [place] 1,000 mL 00 :00 Intravenou Medic al s, ONCE, 1 Branch dose, On [place] 07/28/22 at 0330, Routine HEPARIN 2022- No 4000U 4,000 Univers SODIUM 07-28- Units, IV ity of (PORCINE) 07:45: 08:24 Push, [place] 1,000 00 :00 ONCE, 1 Medical UNIT/ML dose, On Branch BOLUS ACS [place] 07/28/22 ORDER SET at 0245, GELA dextrose Yes 250mL 250 mL, IV Un anil 10% (D10W) 07-28 Infusion, ity of bolus 07:32: PRN - SEE [place] infusion 32 INSTRUCTIO Medic al 250 mL NS, Branch Administer over 60 Minutes, Other, If blood glucose is < or = 70 mg/dL and patient is unable to swallow or has mental status changes, Starting on [place] 07/28/22 at 0232
If blood glucose is [...] swallow or has mental changes. heparin 2022-0 202- No 0U/h 0-2,150 Univer s 25,000 07-28 [...] Rang e, Dosing and Testing: &nbs p;FOR [facility], AND [facility] ONLY &nbs p; - [...] Starting [place] mL vial) 11 :03 on [facility] for 07/28/22 at Branch Rebolusing 0230, Until 07/29/22 at 0943, Routine
Dosing based on aPPT testing parameters (refer to continuous heparin drip order).
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 cephALEXin 0 2022- No [id number] 500mg Take 1 Univers (KEFLEX) 07-19 capsule [...] s: acute pain sulfamethox 2022-0 2022- No [id number] 2{tbl} Take 2 Univers azole-trime 07-19 tablets [...] OF JUICE OR WATER HYDROcodone 2022-0 Yes [id number] 1{tbl} Q6H Take 1 M ethodi -acetaminop [...] OF JUICE OR WATER HYDROcodone 2022-0 Yes [id number] 1{tbl} Q6H Take 1 M ethodi -acetaminop [...] OF JUICE OR WATER HYDROcodone 3-0 Yes [id number] 1{tbl} Q6H Take 1 M ethodi -acetaminop [...] OF JUICE OR WATER HYDROcodone 2022-0 Yes [id number] 1{tbl} Q6H Take 1 M ethodi -acetaminop [...] OF JUICE OR WATER HYDROcodone 2022-0 Yes [id number] 1{tbl} Q6H Take 1 M ethodi -acetaminop [...] OF JUICE OR WATER HYDROcodone 2022-0 Yes [id number] 1{tbl} Q6H Take 1 M ethodi -acetaminop [...] OF JUICE OR WATER HYDROcodone 2022-0 Yes [id number] 1{tbl} Q6H Take 1 M ethodi -acetaminop [...] SLIDING l subcutaneou SCALE s pen acetaminoph 202-0 Yes 650mg Q6H Take 2 Met hodi [...] OF JUICE OR WATER HYDROcodone 2022-0 Yes [id number] 1{tbl} Q6H Take 1 M ethodi -acetaminop [...] OF JUICE OR WATER HYDROcodone 3-0 Yes [id number] 1{tbl} Q6H Take 1 M ethodi -acetaminop 3-[address] [facility] (NORCO) 15:57: mouth Hospi ta 10-325 mg 16 every 6 l per tablet (six) hours as needed for moderate pain .acute pain. sennosides- 3-0 Yes 1{tbl} Q24H Take 1 Me thodi [...] or as directed by physician. vancomycin 2022-0 202- No 1000mg Q12H Infuse Me thodi 1,000 [...] 12 (twelve) hours for 6 days. levoFLOXaci 2022- No [id number] 500mg QD Take 1 Methodi n 06-[id number] (Levaquin) 00:00: 00:00 (500 mg Hos juan jose 500 MG 00 :00 total) by l tablet mouth daily. levoFLOXaci 2022- No [id number] 500mg QD Take 1 Methodi n 06-[id number] (Levaquin) 00:00: 00:00 (500 mg Hos [place] 500 MG 00 :00 total) by l tablet mouth daily. levoFLOXaci 2022- No [id number] 500mg QD Take 1 Methodi n 06-[id number] (Levaquin) 00:00: 00:00 (500 mg [facility] [place] 500 MG 00 :00 total) by l tablet mouth daily. levoFLOXaci 2022- No [id number] 500mg QD Take 1 Methodi n 06-[id number] (Levaquin) 00:00: 00:00 (500 mg Hos [place] 500 MG 00 :00 total) by l tablet mouth daily. levoFLOXaci 2022-0 2022- No [id number] 500mg QD Take 1 Methodi n 06-[id number] (Levaquin) 00:00: 00:00 (500 mg [facility] [place] 500 MG 00 :00 total) by l tablet mouth daily. levoFLOXaci 3-0 3- No [id number] 500mg QD Take 1 Methodi n 06-[id number] (Levaquin) 00:00: 00:00 (500 mg Hos [place] 500 MG 00 :00 total) by l tablet mouth daily. levoFLOXaci 3-0 3- No [id number] 500mg QD Take 1 Methodi n 06-[id number] (Levaquin) 00:00: 00:00 (500 mg Hos [place] 500 MG 00 :00 total) by l tablet mouth daily. levoFLOXaci 2022-0 2022- No [id number] 500mg QD Take 1 Methodi n 06-[id number] (Levaquin) 00:00: 00:00 (500 mg Hos [place] 500 MG 00 :00 total) by l tablet mouth daily. levoFLOXaci 2022-0 2022- No [id number] 500mg QD Take 1 Methodi n 06-[id number] (Levaquin) 00:00: 00:00 (500 mg [...] l (two) times a day. FOR PAD Eliqupriyanka 5 2023-0 Yes 5mg Q.5D Take 1 [...] cephalexin 2023-0 2022- No Method i (KEFLEX) 06-05-15 st [...] 2023-0 Yes Take by Met hodi (TESSALON) 1-24 [...] MG 00:00: Hospita capsule 00 l benzonatate 2023-0 Yes Take by Met hodi (TESSALON) 1-[address] 100 MG 00:00: Hospita capsule 00 l benzonatate 2023-0 Yes Take by [facility] (TESSALON) 1-[address] 100 MG 00:00: [facility]ospita capsule 00 l benzonatate 2023-0 Yes Take by [facility] (TESSALON) 1-[address] 100 MG 00:00: [facility]ospita capsule 00 l benzonatate 2023-0 Yes Take by [facility] (TESSALON) [address] 100 MG 00:00: Hospita capsule 00 l sennosides- 2022-0 2023- No 2{tbl} Take 2 [...] st (TYLENOL) 00:00: 05:59 (650 mg [facility] 325 MG 00 :00 total) by l [...] 100 unit/mL for 30 injection days. metoprolol 2022-2022- No 25mg Q.5D Take 1 Meth greer [...] 100 unit/mL for 30 injection days. metoprolol 2022-2022- No 25mg Q.5D Take 1 Meth greer [...] for up to 30 days. docusate 2022-0 3- No 100mg Q.5D Take 1 Metho di [...] hours for 10 days. [place]Ocod[place] 2022- [place] [id number] 1{tbl} Q6H Take 1 [facility] -acetaminop 05-14 [...] (twelve) hours for 10 days. HYDROcodone 2023-0 202- No [id number] 1{tbl} Q6H Take 1 [facility] -acetaminop 05-14- tablet by st [email or web address] ([facility]) 00:00: 05:59 mouth [facility] 10-325 mg [...] (twelve) hours for 10 days. HYDROcodone 2023-0 202- No [id number] 1{tbl} Q6H Take 1 [facility] -acetaminop 05-14- tablet by st [email or web address] ([place]) 00:00: 05:59 mouth [facility] 10-325 mg [...] (twelve) hours for 10 days. HYDROcodone 2023-0 202- No [id number] 1{tbl} Q6H Take 1 [facility] -acetaminop 05-14-[address] [email or web address] ([place]) 00:00: 05:59 mouth [facility] 10-325 mg [...] for 10 days. HYDROcodone 3-0 2022- [place] [id number] 1{tbl} Q6H Take 1 [facility] -acetaminop 05-14- tablet by st [facility] ([facility]) 00:00: 05:59 mouth [facility] 10-325 mg [...] for 10 days. HYDROcodone 2022-0 20[place]- [place] [id number] 1{tbl} Q6H Take 1 [facility] -acetaminop 05-[address] [facility] ([facility]) 00:00: 05:59 mouth [facility] 10-325 mg [...] for 10 days. HYDROcodone 2023-0 2022- [place] [id number] 1{tbl} Q6H Take 1 [facility] -acetaminop 05-14- tablet by st [facility] ([place]) 00:00: 05:59 mouth [facility] 10-325 mg [...] hours for 10 days. HYDROcodone 2022- No [id number] 1{tbl} Q6H Take 1 [facility] -acetaminop 05-[address] [facility] ([place]) 00:00: 05:59 mouth [facility] 10-325 mg [...] hours for 10 days. [place]Ocodone 2022- [place] [id number] 1{tbl} Q6H Take 1 [facility] -acetaminop 05-[address] [facility] ([place]) 00:00: 05:59 mouth [facility] 10-325 mg [...] for 30 days. insulin 2021-04- No 0U [id number] Inject M ethodi lispro 05-25 [id number] 0-[address] (ADMELOG) 00:00: 05:59 3D [...] for 30 days. insulin 2021-04- No 0U [id number] Inject M ethodi lispro 05-25 [id number] 0-[address] (ADMELOG) 00:00: 05:59 3D [...] for 30 days. insulin 2021-04 No 0U [id number] Inject M ethodi lispro 05-25 [id number] 0-[address] (ADMELOG) 00:00: 05:59 3D [...] for 30 days. insulin 2021-04- No 0U [id number] Inject M ethodi lispro 05-25 [id number] 0-[address] (ADMELOG) 00:00: 05:59 3D [...] for 30 days. insulin 2021-04- No 0U [id number] Inject M ethodi lispro 05-25 [id number] 0-[address] (ADMELOG) 00:00: 05:59 3D [...] for 30 days. insulin 2021-04- No 0U [id number] Inject M ethodi lispro 05-25 [id number] 0-[address] (ADMELOG) 00:00: 05:59 3D [...] for 30 days. insulin 2021-04- No 0U [id number] Inject M ethodi lispro 05-25 [id number] 0-[address] (ADMELOG) 00:00: 05:59 3D [...] Q.5D Take 1 Method i (ELIQUIS) 5 -04 tablet (5 st mg tablet 00:00: 05:59 [...] for 30 days. insulin 2021-04- No 0U [id number] Inject M ethodi lispro 05-25 [id number] 0-[address] (ADMELOG) 00:00: 05:59 3D [...] for 30 days. insulin 2021-04 No 0U [id number] Inject M ethodi lispro 05-25 [id number] 0-[address] (ADMELOG) 00:00: 05:59 3D [...] 12.5mg Q.5D Take 0.5 [facility] tartrate 2-30 01- tablets st (LOPRESSOR) 00:00: 00:00 (12.5 mg [...] No 12.5mg Q.5D Take 0.5 Method[facility] tartrate 05-[address] (LOPRESSOR) 00:00: 00:00 (12.5 mg [...] 400mg Q.5D Take 2 Meth greer (ZOVIRAX) 30 -[address] 200 MG 00:00: 05:59 [...] Q.5D Take 1 Method i (ELIQUIS) 5 230 -07 tablet (5 st mg tablet 00:00: 05:59 mg total) Ho [facility]ita 00 :00 by mouth 2 l (two) times a day for 7 days. apixaban 2021-04- No 5mg Q.5D Take 1 [facility] (ELIQUIS) 5 2- tablet (5 st mg tablet 00:00: 05:59 [...] Take 1 [facility] i (ELIQUIS) 5 2-30 -30 tablet (5 st mg tablet 00:00: [...] 30 injection days. insulin 2021-04- No 0U [id number] Inject M ethodi lispro 05-14- [id number] 0-[address] (ADMELOG) 00:00: 00:00 3D [...] 30 injection days. insulin 2021-04- No 0U [id number] Inject M ethodi lispro 05-14 [id number] 0-[address] (ADMELOG) 00:00: 00:00 3D [...] 30 injection days. insulin 2021-04- No 0U [id number] Inject M ethodi lispro 05-14 [id number] 0-[address] (ADMELOG) 00:00: 00:00 3D [...] 30 injection days. insulin 2021-04- No 0U [id number] Inject M ethodi lispro 05-14 [id number] 0-[address] (ADMELOG) 00:00: 00:00 3D [...] No 81mg QD Take 1 [facility] (ECOTRIN) 1-24 12-30 tablet (81 st 81 MG 00:00: [...] mouth daily for 30 days. insulin 2021-04 30U QD Inject 0.3 [facility] detemir 05-14-30 mL (30 st U-100 00:00: 00:00 Units Hospita (Levemir 00 :00 total) l U-100 under the Insulin) skin daily 100 unit/mL for 30 injection days. insulin 2021-04 No 0U [id number] Inject M ethodi lispro 05-14 [id number] 0-[address] (ADMELOG) 00:00: 00:00 3D [...] 30 injection days. insulin 2021-04- No 0U [id number] Inject M ethodi lispro 05-14- [id number] 0-[address] (ADMELOG) 00:00: 00:00 3D [...] 30 injection days. insulin 2021-04- No 0U [id number] Inject M ethodi lispro 05-14 [id number] 0-[address] (ADMELOG) 00:00: 00:00 3D [...] 30 injection days. insulin 2021-04- No 0U [id number] Inject M ethodi lispro 05-14 [id number] 0-[address] (ADMELOG) 00:00: 00:00 3D [...] 30 injection days. insulin 2021-04- No 0U [id number] Inject M ethodi lispro 05-14 [id number] 0-[address] (ADMELOG) 00:00: 00:00 3D [...] coated daily for tablet 30 days. clopidogreL 2022-1 2022- No 75mg QD Take 1 [facility] [...] Q.5D Take 1 [facility] (VIBRAMYCIN -24 03-[address] ) 50 MG 00:00: 05:59 (50 mg Hospita capsule 00 :00 total) by l mouth 2 (two) times a day for 14 days. ciprofloxac 2021-04- No 500mg Q.5D Take 1 [facility] in (Cipro) 05-14 12-[address] 500 MG 00:00: 05:59 (500 mg Hospita tablet 00 :00 total) by l mouth 2 (two) times a day for 14 days. doxycycline 2021-04- No 50mg Q.5D Take 1 [facility] (VIBRAMYCIN 1-24 12-[address] ) 50 MG 00:00: 05:59 (50 mg [facility]ospita capsule 00 :00 total) by l mouth 2 (two) times a day for 14 days. ciprofloxac 2021-04- No 500mg Q.5D Take 1 [facility] in (Cipro) 05-14 12- tablet st 500 MG 00:00: 05:59 (500 mg [facility]ospita tablet 00 :00 total) by l mouth 2 (two) times a day for 14 days. doxycycline 2021-04 No 50mg Q.5D Take 1 [facility] (VIBRAMYCIN 05-14 12- capsule st ) 50 MG 00:00: 05:59 [...] 90 days.Stren gth: 1,000 mg metFORMIN 2022-0 Yes metformin [facility] (GLUCOPHAGE 8-26 1,000 [...] metFORMIN 2022- No metformin [facility] (GLUCOPHAGE 12-1424 1,[address] ) 1,000 mg 00:00: 00:00 tablet [facility] tablet 00 :00 Take 1 l tablet twice a day by oral route for 90 days.Stren gth: 1,000 mg metFORMIN 2022- No metformin [facility] (GLUCOPHAGE 12-1424 1,[address] ) 1,000 mg 00:00: 00:00 tablet [facility] tablet 00 :00 Take 1 l tablet twice a day by oral route for 90 days.Stren gth: 1,000 mg metFORMIN 2022- No metformin [facility] (GLUCOPHAGE 12-1424 1,[address] ) 1,000 mg 00:00: 00:00 tablet [facility] tablet 00 :00 Take 1 l tablet twice a day by oral route for 90 days.Stren gth: 1,000 mg metFORMIN 2021-2022- No metformin [facility] (GLUCOPHAGE 12-1424 1,000 [...] metFORMIN 2022- No metformin [facility] (GLUCOPHAGE 12-14 [...] QD Place 1 [facility] (NICODERM 8-26 } patch on st CQ) 00:00: 04:59 [...] 8 09-26 } patch on st CQ) 21 [...] (NICODERM 826 } patch on st CQ) 21 00:00: [...] day for 10 days. traMADoL 2021- No [id number] 50mg Q6H Take 1 Metho di (ULTRAM) 50 11-0829 tablet (50 s t mg tablet 00:00: 04:59 mg total) Ho spita 00 :00 by mouth l every 6 (six) hours as needed for moderate pain for up to 7 days .acute pain. traMADoL 2021- [place] [id number] 50mg Q6H Take 1 Metho di (ULTRAM) 50 11-08- tablet (50 s t mg tablet 00:00: 04:59 mg total) Ho spita 00 :00 by mouth l every 6 (six) hours as needed for moderate pain for up to 7 days .acute pain. traMADoL 2021- [place] [id number] 50mg Q6H Take 1 Metho di (ULTRAM) 50 11-08-29 tablet (50 s t mg tablet 00:00: 04:59 mg total) Ho spita 00 :00 by mouth l every 6 (six) hours as needed for moderate pain for up to 7 days .acute pain. traMADoL 2021- No [id number] 50mg Q6H Take 1 Metho di (ULTRAM) 50 11-08-29 tablet (50 s t mg tablet 00:00: 04:59 mg total) Ho spita 00 :00 by mouth l every 6 (six) hours as needed for moderate pain for up to 7 days .acute pain. traMADoL 2021- [place] [id number] 50mg Q6H Take 1 Metho di (ULTRAM) 50 11-08-29 tablet (50 s t mg tablet 00:00: 04:59 mg total) Ho spita 00 :00 by mouth l every 6 (six) hours as needed for moderate pain for up to 7 days .acute pain. traMADoL 2021- [place] [id number] 50mg Q6H Take 1 Metho di (ULTRAM) 50 7-08 11-29 tablet (50 s t mg tablet 00:00: 04:59 mg total) Ho spita 00 :00 by mouth l every 6 (six) hours as needed for moderate pain for up to 7 days .acute pain. traMADoL 2021- [place] [id number] 50mg Q6H Take 1 Metho di (ULTRAM) 50 7-08 11-29 tablet (50 s t mg tablet 00:00: 04:59 mg total) Ho spita 00 :00 by mouth l every 6 (six) hours as needed for moderate pain for up to 7 days .acute pain. traMADoL 2021- [place] [id number] 50mg Q6H Take 1 Metho di (ULTRAM) 50 7-08 11-29 tablet (50 s t mg tablet 00:00: 04:59 mg total) Ho spita 00 :00 by mouth l every 6 (six) hours as needed for moderate pain for up to 7 days .acute pain. tra[place]AD[place] 2021- [place] [id number] 50mg Q6H Take 1 Metho di (ULTRAM) [...] tablet 00:00: Hospita 00 l losartan 2021-0 2021- No [facility] (COZAAR) 50 6-14 12-30 st [...] 2021-0 2021- No Metho di -pot 6-14 - st clavulanate 00:00: 00:00 Hospi ta (AUGMENTIN) 00 :00 l 875-125 mg per tablet ibuprofen 2021-0 2021- No [facility] (ADVIL) 600 6-14 08-26 st MG tablet 00:00: 00:00 Hospita 00 :00 l amoxicillin 2021-0 2021- No Metho di -pot 6-14 - st clavulanate 00:00: 00:00 Hospi ta (AUGMENTIN) 00 :00 l 875-125 mg per tablet HumaLOG Yes INJECT 5 Method i U-100 4-[address] Insulin 100 00:00: SUBCUTANEO Hospita unit/mL 00 USLY l subcutaneou BEFORE s vial MEALS. VIAL EXPIRES 28 DAYS AFTER FIRST USE. Lantus 0 Yes INJECT 15 [facility] U-100 4-19 [...] 00 :00 l x 5/16 syringe [facility] 2022-0 2023- No Q.25D 4 (four) [facility] Insulin 4-09 05-[address] Syringe 1 00:00: 00:00 day. [facility]ospita mL 30 gauge 00 :00 l x 5/16 syringe [facility] 2022-0 2023- No Q.25D 4 (four) [facility] Insulin 4-09 05-[address] Syringe 1 00:00: 00:00 day. [facility]osp[facility] mL 30 gauge 00 :00 l x 5/16 syringe [facility] 2022-0 2023- No Q.25D 4 (four) [facility] Insulin 4-[address] Syringe 1 00:00: 00:00 day. [facility]ospita mL 30 gauge 00 :00 l x 5/16 syringe [facility] 2022-0 2023- No Q.25D 4 (four) [facility] Insulin 4-09 05-[address] Syringe 1 00:00: 00:00 day. [facility]ospita mL 30 gauge 00 :00 l x 5/16 syringe [facility] 2-0 2023- No Q.25D 4 (four) [facility] Insulin 4-09 05-[address] Syringe 1 00:00: 00:00 day. [facility]ospita mL 30 gauge 00 :00 l x 5/16 syringe [facility] 2022-0 2023- No Q.25D 4 (four) [facility] Insulin 4-09 05-[address] Syringe 1 00:00: 00:00 day. [facility]ospita mL 30 gauge 00 :00 l x 5/16 syringe [facility] 2022-0 2023- No Q.25D 4 (four) [facility] Insulin 4-09 05-[address] Syringe 1 00:00: 00:00 day. [facility]ospita mL 30 gauge 00 :00 l x 5/16 syringe [facility] 2022-0 2023- No Q.25D 4 (four) [facility] Insulin 4-09 05-[address] Syringe 1 00:00: 00:00 day. [facility]ospita mL 30 gauge 00 :00 l x 5/16 syringe HumaLOG 2022-0 2022- No INJECT 5 Metho di U-100 4-19 [...] days Quantity: 90 {Tablet}Re fills: 0Ordered: [facility] t: 2 Lantus 100 No 10{unit Lantus 100 2.16.84 UNIT/ML 3-11 s} UNIT/ML 0.1.113 Subcutaneou 00:00: Subcutaneo 883.4.2 s Solution 00 us Solution; 10 units qhs. for 0 days Quantity: 10 {Millilite r}Refills: 0Ordered: [facility] t: 2 True Metrix No 1{Each} True Please 2 .16.84 Blood 3-11 Metrix substitut 0.1.113 Glucose 00:00: Blood e prn. 883.4.2 Test In 00 Glucose Vitro Strip Test In Vitro Strip; 1 (one) Each bid for 0 days Quantity: 60 {Each}Refi lls: 5Ordered: 2WiELISA friedmanar t: 2Comments: Please substitute prn. atorvastati Yes [...] 00:00 Hospita tablet 00 :00 l atorvastati 2021-0 2021- No Take by [facility] n (LIPITOR) 06-[address] 20 mg 00:00: 00:00 Hospita tablet 00 :00 l atorvastati 2021-0 2021- No Take by [facility] n (LIPITOR) 06-[address] 20 mg 00:00: 00:00 Hospita tablet 00 :00 l atorvastati 2021-2021- No Take by [facility] n (LIPITOR) 06-[address] 20 mg 00:00: 00:00 Hospita tablet 00 :00 l atorvastati 2021- No Take by [facility] ree (LIPITOR) 3-11 11-[address] 20 mg 00:00: 00:00 Hospita tablet 00 :00 l metFORMIN 2020-04- No Medication 500mg Q.5D Take 1 Dru (GLUCOPHAGE 0-15 05-03 refill tablet by [employer] ) 500 mg 00:00: 23:59 mouth 2 tablet 00 :00 times daily (with meals) for 90 days. metFORMIN 2020-04- No Medication 500mg Q.5D Take 1 Dru (GLUCOPHAGE 005-03 refill tablet by [employer] ) 500 mg 00:00: 23:59 mouth 2 tablet 00 :00 times daily (with meals) for 90 days. cephalexin 2020- No 500mg [id number] Take 1 [facility] (KEFLEX) 01-02 [id number] capsule s t 500 MG 00:00: 04:59 3D (500 mg Hospita capsule 00 :00 total) by l mouth 3 (three) times a day for 7 days. cephalexin 2020- No 500mg [id number] Take 1 [facility] (KEFLEX) 01-02 [id number] capsule s t 500 MG 00:00: 04:59 3D (500 mg Hospita capsule 00 :00 total) by l mouth 3 (three) times a day for 7 days. Cyclobenzap 2015-04 Yes 10 mg = 1 M emoria rine 0-27 tab, PO, l hydrochlori 21:52: BID, PRN He rmrichie de 10 MG 00 for spasm, Oral Tablet X 7 day, # [Flexeril] 14 tab, 0 Refill(s) Motrin 800 2015-04 Yes 800 mg = 1 M emoria mg oral 0-27 tab, PO, l tablet 21:52: Q8H, PRN [place] 00 Pain, Take with food, X 10 day, # 30 tab, 0 Refill(s) Flexeril 2015-04 No Notes: Memoria 0-27 (Same As: l 20:33: Flexeril) Gu[place] 00 Motrin 2015-04 No Notes: Memoria 0-27 (Same as: l 20:33: Motrin) Gu[place] 00 "Do Not Crush" Give with food. 24 HR No Notes: Memoria Metformin -15 (Same as: l hydrochlori 14:00: Glucophage Guille de 500 MG 00 XR) "Do Extended Not Crush" Release Tablet Azithromyci No Notes: [place] betty n -15 Take 1 l 14:00: hour before or 2 hours after meals. (Same As: Zithromax) Prednisone No Notes: Memor ia 9-15 Take with l 14:00: food. 24 HR Yes 1,000 mg = Memori a Metformin 15 2 tab, PO, l hydrochlori 00:46: BID, # 120 [place] de 500 MG 10 tab, 0 Extended Refill(s), Release Pharmacy: Tablet [place] [id number] [facility] 120 ACTUAT Yes 2 puff, [place] betty Albuterol 15 INHALATION l 0.1 00:46: , QID, # 1 [place] MG/ACTUAT / 00 ea, 0 Ipratropium Refill(s), [place] [facility]: 0.02 [place] [id number] MG/[facility] Metered Dose Inhaler [Combivent 20/100] predniSONE Yes 20 mg = 1 Me moria 20 mg oral 9-15 tab, PO, l tablet 00:46: Daily, X 3 Keesha nn 00 day, # 3 tab, 0 Refill(s), Pharmacy: [place] [id number] [facility] Insulin No 60 units) [place] betty regular 01-02 WASTE: l 21:18: F/P - Black; E - Municipal Trash [...] 01-02 25 mL, l 21:18: Route: [place] 00 IVP, Drug Form: INJ, Dosing Weight 88.21, kg, PRN, PRN Blood Glucose Results, Start date: 01/03/16 16:18:00 CDT, Duration: 30 day, Stop date: 02/02/16 16:17:00 CDT Albuterol No Notes: Memori a 0.833 MG/ML 01-02 (Same as: l / 19:00: Duoneb) Guille Ipratropium 00 [place] 0.167 MG/ML Inhalant Solution Enoxaparin No Notes: Memor ia 01-02 (Same as: l 14:00: Lovenox) [place] 00 Ceftriaxone No Notes: [place] betty 01-02 (Same As: l 14:00: Rocephin). [place] 00 Use with 100 mL NS and infuse over 30 min MEDICATION WASTE Product Size: 1000 mg Product Wasted: ___ mg Sodium No 25 mL, Memoria Chloride 01-02 Route: IV, l 0.9% IV 13:53: Start [place] 00 date: 01/03/16 8:53:00 CDT, Duration: 30 day, Stop date: 02/02/16 8:52:00 CDT, PRN Line Flush BD Normal No Notes: Memori a Saline 01-02 (Same as: l Flush 13:53: BD [place] 00 Posiflush) BD Normal No Notes: Memori a Saline 14 (Same as: l Flush 13:52: BD Guille [...] 0.9% 01-02 (Same as: l 08:01: BD [place] 00 Posiflush) 200 ACTUAT No Notes: Memor ia Albuterol 30 (albuterol l 0.09 20:00: 90 [place] MG/ACTUAT 00 microgram/ Metered inh 6.7gm Dose AER) Inhaler WASTE: Aerosol - Return to Pharmacy (Same as: Proventil HFA) clindamycin Yes 450 mg, Mem oria 150 mg oral 8-30 PO, Q8H, X l capsule 19:05: 7 day, # Larry n 00 61 cap, 0 Refill(s) 24 HR Yes 1,000 mg = Memori a Metformin 830 2 tab, PO, l hydrochlori 19:05: BID, # 120 [place] de 500 MG 00 tab, 0 Extended Refill(s) Release Tablet Clindamycin No Notes: [place] betty 12-18 (Same As: l 19:03: Cleocin) Tylenol No Notes: Do Memor ia 12-18 not exceed l 17:51: 4 gm/day. [place] 00 (Same as: Tylenol) Insulin No 60 [...] 12-18 Route: IM, l 13:02: Drug form: [place] 00 PDR/INJ, PRN, Dosing Weight 78.7, kg, PRN Blood Glucose Results, Start date: 12/19/15 8:02:00 CDT, Duration: 30 day, Stop date: 09/29/16 8:01:00 CDT Ondansetron No Notes: [place] betty [...] / 12-18 (Same as: l Hydrocodone 06:19: [place] Keesha nn Bitartrate 00 325/5) Do 5 MG Oral not exceed Tablet 4gm/day of [[place] acetaminop 5/325] hen. Insulin No Notes: Memoria [...] Immunizations Ordered Filled Immunization Date Status Comments [facility] e Immunization Name Name Pneumococcal 2022-04-19 Completed [facility] 20-valent Conjugate 00:00:00 Hospi amber Vaccine FLUCELVAX QUAD PF 2022-04-[address] 00:00:00 [facility] Pneumococcal 2022-04-19 Completed [facility] 20-valent Conjugate 00:00:00 Hospi amber Vaccine FLUCELVAX QUAD PF 2022-04-[address] 00:00:00 Hospital Pneumococcal 2022-04-19 Completed [facility] 20-valent Conjugate 00:00:00 Hospi amber Vaccine FLUCELVAX QUAD PF 2022-04-[address] 00:00:00 Hospital Pneumococcal 2022-04-19 Completed [facility] 20-valent Conjugate 00:00:00 Hospi amber Vaccine FLUCELVAX QUAD PF 2022-04-[address] 00:00:00 Hospital Pneumococcal 2022-04-19 Completed [facility] 20-valent Conjugate 00:00:00 Hospi amber Vaccine FLUCELVAX QUAD PF 2022-04-[address] 00:00:00 Hospital Pneumococcal 2022-04-19 Completed [facility] 20-valent Conjugate 00:00:00 Hospi amber Vaccine FLUCELVAX QUAD 2022-04-[address] 00:00:00 Hospital Pneumococcal 2022-04-19 Completed [facility] 20-valent Conjugate 00:00:00 Hospi amber Vaccine FLUCELVAX QUAD 2022-04-[address] 00:00:00 Hospital Pneumococcal 2022-04-19 Completed [facility] 20-valent Conjugate 00:00:00 Hospi amber Vaccine FLUCELVAX QUAD PF 2022-04-[address] 00:00:00 Hospital Pneumococcal 2022-04-19 Completed [facility] 20-valent Conjugate 00:00:00 Hospi amber Vaccine FLUCELVAX QUAD 2022-04-[address] 00:00:00 [facility] TDAP 2021-09-30 Completed [facility] 00:00:00 [facility] TDAP 2021-09-30 Completed [facility] 00:00:00 [facility] TDAP 2021-09-30 Completed [facility] 00:00:00 [facility] TDAP 2021-09-30 Completed [facility] 00:00:00 [facility] TDAP 2021-09-30 Completed [facility] 00:00:00 [facility] TDAP 2021-09-30 Completed [facility] 00:00:00 [facility] TDAP 2021-09-30 Completed [facility] 00:00:00 [facility] TDAP 2021-09-30 Completed [facility] 00:00:00 [facility] TDAP 2016-12-31 Completed [facility] 00:00:00 [facility] TDAP 2016-12-31 Completed [facility] 00:00:00 [facility] TDAP 2016-12-31 Completed [facility] 00:00:00 [facility] TDAP 2016-12-31 Completed [facility] 00:00:00 [facility] TDAP 2016-12-31 Completed [facility] 00:00:00 [facility] TDAP 2016-12-31 Completed [facility] 00:00:00 [facility] TDAP 2016-12-31 Completed [facility] 00:00:00 [facility] TDAP 2016-12-31 Completed [facility] 00:00:00 [facility] pneumococcal 2016-01-04 Completed [facility] 23-valent vaccine 01:30:00 influenza virus 2016-01-04 [facility] 01:[facility]:00 inactivated Vital Signs Vital Name Observation Time Observation Value Comments Source Systolic blood 2022-11-06 96 mm[Hg] [facility] pressure 18:56:00 [facility] Diastolic blood 2022-11-06 65 mm[Hg] University o f pressure 18:56:00 [facility] Heart rate 2022-11-06 56 /min [facility] 18:56:00 [facility] Respiratory rate 2022-11-06 18 /min [facility] 18:56:00 [facility] Body height 2022-11-06 121.9 cm University of 18:56:00 [facility] Systolic blood 2022-11-06 96 mm[Hg] [facility] of pressure 18:21:00 [facility] Diastolic blood 2022-11-06 56 mm[Hg] University o f pressure 18:21:00 [facility] Heart rate 2022-11-06 56 /min [facility] 18:21:00 [facility] Respiratory rate 2022-11-06 18 /min [facility] 18:21:00 [facility] Body height 2022-11-06 121.9 cm University of 18:21:00 [facility] Body weight 2022-11-06 86.183 kg University of 18:21:00 [facility] BMI 2022-11-06 57.98 kg/m2 University of 18:21:00 [facility] Oxygen saturation 2022-11-06 96 /min [place] [facility] in Arterial blood 18:21:00 [facility] Pulse oximetry [place] Systolic blood 2022-09-13 113 mm[Hg] University of pressure 03:30:00 [facility] Diastolic blood 2022-09-13 59 mm[Hg] University o f pressure 03:30:00 [facility] Heart rate 2022-09-13 62 /min [facility] 03:30:00 [facility] Respiratory rate 2022-09-13 17 /min [facility] 03:30:00 [facility] Oxygen saturation 2022-09-13 96 /min [facility] in Arterial blood 03:30:00 [facility] by Pulse oximetry [facility] Body temperature 2022-09-13 37.11 Jaqueline University of 02:29:00 [facility] Body height 2022-09-13 121.9 cm University of 02:29:00 [facility] Body weight 2022-09-13 87.544 kg University of 02:29:00 [facility] BMI 2022-09-13 58.89 kg/m2 University of 02:29:00 [facility] Systolic blood 2022-09-12 100 mm[Hg] [facility] of pressure 18:47:00 [facility] Diastolic blood 2022-09-12 67 mm[Hg] University o f pressure 18:47:00 [facility] Heart rate 2022-09-12 58 /min [facility] 18:47:00 [facility] Body temperature 2022-09-12 36.17 Jaqueline [facility] 18:47:00 [facility] Body weight 2022-09-12 87.544 kg University of 18:47:00 [facility] BMI 2022-09-12 58.89 kg/m2 [facility] of 18:47:00 [facility] Oxygen saturation 2022-09-12 97 /min [place] [facility] in Arterial blood 18:47:00 [facility] by Pulse oximetry [facility] Systolic blood 2022-08-14 122 mm[Hg] [facility] of pressure 07:31:00 [facility] Diastolic blood 2022-08-14 55 mm[Hg] University o f pressure 07:31:00 [facility] Heart rate 2022-08-14 55 /min [facility] 07:31:00 [facility] Respiratory rate 2022-08-14 15 /min [facility] 07:31:00 [facility] Oxygen saturation 2022-08-14 94 /min [facility] in Arterial blood 07:31:00 [facility] Pulse oximetry Branch Body temperature 2022-08-14 37 Jaqueline [facility] 05:10:00 [facility] Body height 2022-08-14 121.9 cm "without my [facility] of 05:10:00 legs" [facility] Body weight 2022-08-14 81.647 kg [facility] 05:10:00 [facility] BMI 2022-08-14 54.93 kg/m2 [facility] 05:10:00 [facility] Systolic blood 2022-08-05 175 mm[Hg] [facility] pressure 18:25:00 [facility] Diastolic blood 2022-08-05 71 mm[Hg] [facility] o f pressure 18:25:00 [facility] Heart rate 2022-08-05 60 /min [facility] 18:24:00 [facility] Body temperature 2022-08-05 36.67 Jaqueline [facility] 18:24:00 [facility] Respiratory rate 2022-08-05 18 /min [facility] 18:24:00 [facility] Body height 2022-08-05 121.9 cm [facility] 18:24:00 [facility] Oxygen saturation 2022-08-05 100 /min [place] [facility] in Arterial blood 18:24:00 [facility] by Pulse oximetry Branch Systolic blood 2022-07-31 130 mm[Hg] University of pressure 21:05:00 [facility] Diastolic blood 2022-07-31 47 mm[Hg] University o f pressure 21:05:00 [facility] Heart rate 2022-07-31 61 /min University of 21:05:00 [facility] Body temperature 2022-07-31 36.83 Jaqueline [place] of 21:05:00 [facility] Respiratory rate 2022-07-31 16 /min University of 21:05:00 [facility] Oxygen saturation 2022-07-31 99 /min University of in Arterial blood 21:05:00 [facility] by Pulse oximetry Branch Body height 2022-07-29 121.9 cm BKA University of 15:00:00 [facility] Body weight 2022-07-28 92 kg University of 07:00:00 [facility] BMI 2022-07-28 61.89 kg/m2 University of 07:00:00 [facility] Systolic blood 2022-07-19 116 mm[Hg] [facility] pressure 06:20:00 [facility] Diastolic blood 2022-07-19 82 mm[Hg] University o f pressure 06:20:00 [facility] Heart rate 2022-07-19 54 /min [facility] 06:20:00 [facility] Body temperature 2022-07-19 36.5 Jaqueline [facility] 06:20:00 [facility] Respiratory rate 2022-07-19 16 /min [facility] 06:20:00 [facility] Oxygen saturation 2022-07-19 95 /min [facility] in Arterial blood 06:20:00 [facility] by Pulse oximetry [place] Body height 2022-07-19 121.9 cm [facility] 02:38:00 [facility] Body weight 2022-07-19 79.379 kg [facility] 02:38:00 [facility] BMI 2022-07-19 53.40 kg/m2 [facility] 02:38:00 [facility] Temperature 2021-06-29 97 [degF] Method: Oral [id number] 8 13:17:12 3.4.2 Pulse 2021-06-29 77 /min Pattern: [id number] 8 13:17:12 Regular 3.4.2 Respiration Rate 2021-06-29 18 /min Pattern: [id number]. [id number] 13:17:12 Unlabored 3.4.2 BP Systolic 2021-06-29 139 mm[Hg] Patient [id number] 8 13:17:12 Position: 3.4.2 Sitting; Cuff Location: Left Arm; Cuff Size: Standard BP Diastolic 2021-06-29 82 mm[Hg] Patient [id number] 8 13:17:12 Position: 3.4.2 Sitting; Cuff Location: Left Arm; Cuff Size: Standard Systolic blood 2022-07-03 122 mm[Hg] [facility] 17:14:00 Hospital Diastolic blood 2022-07-03 57 mm[Hg] [facility] 17:14:00 Hospital Heart rate 2022-07-03 64 /min [facility] 17:14:00 [facility] Body temperature 2022-07-03 37 Jaqueline [facility] 16:20:31 Hospital Respiratory rate 2022-07-03 21 /min [facility] 16:20:31 [facility] Oxygen saturation 2022-07-03 98 /min [facility] in Arterial blood 16:20:31 [facility] by Pulse oximetry Body height 2022-06-29 170.2 cm [facility] 02:00:00 [facility] Body weight 2022-06-28 81.149 kg [facility] 12:00:00 [facility] BMI 2022-06-28 28.02 kg/m2 [facility] 12:00:00 [facility] Systolic blood 2021-12-14 140 mm[Hg] [facility] 16:16:14 Hospital Diastolic blood 2021-12-14 72 mm[Hg] [facility] 16:16:14 Hospital Heart rate 2021-12-14 74 /min [facility] 16:16:14 [facility] Body temperature 2021-12-14 36.22 Jaqueline [facility] 16:16:14 Hospital Respiratory rate 2021-12-14 20 /min [facility] 16:16:14 Hospital Oxygen saturation 2021-12-14 100 /min [facility] in Arterial blood 16:16:14 [facility] by Pulse oximetry Body height 2021-12-11 170.2 cm [facility] 22:35:00 Hospital Body weight 2021-12-11 88.451 kg [facility] 22:35:00 [facility] BMI 2021-12-11 30.54 kg/m2 [facility] 22:35:00 [facility] Systolic blood 2021-02-02 153 mm[Hg] [facility] pressure 16:00:00 Diastolic blood 2021-02-02 79 mm[Hg] [facility] h pressure 16:00:00 Heart rate 2021-02-02 84 /min [facility] 16:00:00 Body temperature 2021-02-02 36.67 Jaqueline [facility] 16:00:00 Respiratory rate 2021-02-02 18 /min [facility] 16:00:00 Oxygen saturation 2021-02-02 97 /min [facility] in Arterial blood 16:00:00 by Pulse oximetry Body height 2021-02-02 177.8 cm [facility] 14:44:00 Body weight 2021-02-02 81.647 kg [facility] 14:44:00 BMI 2021-02-02 25.83 kg/m2 [facility] 14:44:00 Temperature Oral 2016-02-16 98 F [facility] rmann (F) 02:05:00 Respitory Rate 2016-02-16 [facility] richie 02:05:00 Heart [facility] 2016[facility]02-16 [facility]00 Systolic (mm Hg) 2016-02-16 [facility] [...] richie 01:00:00 Temperature Oral 2016-01-04 97.6 F [facility] rmann (F) 01:00:00 Systolic (mm Hg) 2016-01-03 [facility] 21:00:00 Diastolic (mm Hg) 2016-01-03 [facility] ermann 21:00:00 Respitory Rate 2016-01-03 [facility] richie 21:00:00 Heart Rate 2016-01-03 [facility] Larry n 21:00:00 Temperature Oral 2016-01-03 97.5 F [facility] Codey rmann (F) 21:00:00 Systolic (mm Hg) 2016-01-03 [facility] 17:00:00 Diastolic (mm Hg) 2016-01-03 [facility] 17:00:00 Respitory Rate 2016-01-03 [facility] richie 17:00:00 Heart Rate 2016-01-03 [facility] Larry n 17:00:00 Temperature Oral 2016-01-03 98.2 F [facility] rmann (F) 17:00:00 BMI Calculated 2016-01-03 [facility] [...] OTHER 2022-09-25 05:01:00 Doctor Unassigned, No [facility] EKG-12 LEAD 2022-09-13 03:45:38 Hui Paez [facility] BASIC METABOLIC PANEL 2022-09-13 02:46:00 Hui Paez [facility] (NA, K, CL, CO2, GLUCOSE, Medica l Branch BUN, CREATININE, CA) CONSENT/REFUSAL FOR 2022-09-13 02:24:56 Doctor Unassigned, No [facility] Name [facility] XR LUMBAR SPINE 5 VW 2022-09-12 20:57:55 Alexandra Finnegan [facility] XR HIPS 3 VW LEFT 2022-09-12 20:57:55 Kian [facility] PROSTATIC SPECIFIC 2022-09-12 19:52:00 Kain Alexandra [facility] ANTIGEN [facility] FREE T4 2022-09-12 19:52:00 Kain [facility] THYROID STIMULATING 2022-09-12 19:52:00 Kain Alexandra [facility] HORMONE [facility] COMP. METABOLIC PANEL 2022-09-12 19:52:00 Kain Alexandra [facility] ([id number]) [facility] LIPID PANEL ([id number])(TOTAL 2022-09-12 19:52:00 Alexandra Finnegan [facility] CHOLESTEROL, [facility] TRIGLYCERIDES, HDL) CBC WITH DIFF 2022-09-12 19:52:00 Kain [facility] GLYCOSYLATED HEMOGLOBIN 2022-09-12 19:52:[address] [facility] [place] [place] (A1C) [facility] URINALYSIS 2022-09-12 19:52:00 Kain [facility] DME/SUPPLY JUSTIFICATION 2022-09-04 05:01:00 Doctor Unassigned, No [facility] HOME HEALTH - OTHER 2022-08-26 05:01:00 Doctor Unassigned, No [facility]SE (AUTOMATED) 2022-08-14 07:28:00 Les Ellsworth [facility] URINE DRUG (IMMUNOASSAY) 2022-08-14 06:10:00 Les Ellsworth [facility] - COMPREHENSIVE DRUG Medical Bra nch SCREEN URINALYSIS 2022-08-14 06:10:00 Les Ellsworth [facility] BASIC METABOLIC PANEL 2022-08-14 05:43:00 Les Ellsworth [facility] (NA, K, CL, CO2, GLUCOSE, Medica l Branch BUN, CREATININE, CA) CBC WITH DIFF 2022-08-14 05:43:00 Les Ellsworth [facility] LACTIC ACID WHOLE BLOOD 2022-08-14 05:43:00 Les Ellsworth [facility] CONSENT/REFUSAL FOR 2022-08-14 05:01:57 Doctor Unassigned, No [facility] DIAGNOSIS AND TREATMENT [facility] DNR 2022-08-07 05:01:00 Doctor Unassigned, No Univer sity [facility] HOME HEALTH 485 2022-08-02 05:01:00 Doctor Unassigned, No [facility] PO[facility]SE (AUTOMATED) 2022-07-31 22:26:00 Mayo [facility] POCT GLUCOSE (AUTOMATED) 2022-07-31 17:13:00 Mayo [facility] POCT GLUCOSE (AUTOMATED) 2022-07-31 01:46:00 Mayo [facility] POCT GLUCOSE (AUTOMATED) 2022-07-30 23:16:00 Mayo [facility] POCT GLUCOSE (AUTOMATED) 2022-07-30 18:42:00 Mayo [facility] POCT GLUCOSE (AUTOMATED) 2022-07-30 14:18:00 Mayo [facility] MAGNESIUM 2022-07-30 10:58:00 Kelsey [facility] BASIC METABOLIC PANEL 2022-07-30 10:58:00 Mihai Cole [facility] (NA, K, CL, CO2, GLUCOSE, Medica l Branch BUN, CREATININE, CA) CBC WITH DIFF 2022-07-30 10:58:00 Kelsey [facility] POCT GLUCOSE (AUTOMATED) 2022-07-30 01:36:00 Mayo, [facility] POCT GLUCOSE (AUTOMATED) 2022-07-29 22:43:00 Mayo [facility] POCT GLUCOSE (AUTOMATED) 2022-07-29 18:35:00 Mayo, Malik [facility] IRON PANEL 2022-07-29 17:06:00 Kelsey [facility] CT ANGIOGRAM LOWER 2022-07-29 16:36:24 Yordy Thornton [facility] EXTREMITY LEFT W CONTRAST Medica l Branch ACTIVATED PARTIAL 2022-07-29 13:53:00 Yordy Thornton [facility] POCT GLUCOSE (AUTOMATED) 2022-07-29 13:45:00 Malik Mayo [facility] MAGNESIUM 2022-07-29 10:36:00 Slim [facility] FERRITIN SERUM 2022-07-29 10:36:00 Kelsey [facility] HEPATIC FUNCTION PANEL 2022-07-29 10:36:00 Slim [facility] ([id number]) (ALB,T.PRO,BILI Medical Branch T,BU/BC,ALT,AST,ALK PHOS) BASIC METABOLIC PANEL 2022-07-29 10:36:00 [facility] (NA, K, CL, CO2, GLUCOSE, Medica l Branch BUN, CREATININE, CA) CBC WITH DIFF 2022-07-29 10:36:00 Slim [facility] ACTIVATED PARTIAL 2022-07-29 07:13:00 Yordy Thornton [facility] URINALYSIS 2022-07-29 01:44:00 Darius [facility] CREATININE, URINE RANDOM 2022-07-29 01:44:00 Richard Mccoy [facility] UREA NITROGEN, URINE 2022-07-29 01:44:[address] [facility] SODIUM, URINE RANDOM 2022-07-29 01:44:00 Darius Richard [facility] POCT GLUCOSE (AUTOMATED) 2022-07-29 01:17:00 Malik Mayo [facility] POCT GLUCOSE (AUTOMATED) 2022-07-28 21:09:00 Brennan Love [facility] BASIC METABOLIC PANEL 2022-07-28 19:01:00 DanielDemetrice [facility] (NA, K, CL, CO2, GLUCOSE, Medica l Branch BUN, CREATININE, CA) ACTIVATED PARTIAL 2022-07-28 19:01:00 Yordy Thornton [facility] POCT GLUCOSE (AUTOMATED) 2022-07-28 17:12:00 Brennan Love [facility] BASIC METABOLIC PANEL 2022-07-28 14:28:00 Ramon [facility] (NA, K, CL, CO2, GLUCOSE, Medica l Branch BUN, CREATININE, CA) ACTIVATED PARTIAL 2022-07-28 14:28:00 Yordy Thornton [facility] POCT GLUCOSE (AUTOMATED) 2022-07-28 12:52:00 Brennan Love [facility] HB ECG ROUTINE & RHYTHM 2022-07-28 10:09:24 Scooter Barroso [facility] CREATINE KINASE 2022-07-28 08:02:00 Yordy Thornton [facility] C-REACTIVE PROTEIN 2022-07-28 08:02:00 Yordy Thornton [facility] COMP. METABOLIC PANEL 2022-07-28 08:02:00 Yordy Thornton [facility] ([id number]) [facility] VANCOMYCIN RANDOM LEVEL 2022-07-28 08:02:00 Yordy Thornton [facility] SEDIMENTATION RATE 2022-07-28 08:02:00 Yordy Thornton [facility] CBC WITH DIFF 2022-07-28 08:02:00 Yordy Thornton [facility] GLYCOSYLATED HEMOGLOBIN 2022-07-28 08:02:00 Yordy Thornton [facility] (A1C) [facility] PROTHROMBIN TIME / INR 2022-07-28 08:02:00 Yordy Thornton [facility] ACTIVATED PARTIAL 2022-07-28 08:02:00 Yordy Thornton [facility] MRSA / MSSA SCREEN BY 2022-07-28 08:02:00 Yordy Thornton [facility] PCR, NARES [facility] POCT GLUCOSE (AUTOMATED) 2022-07-28 08:01:00 Brennan Love [facility] COMP. METABOLIC PANEL 2022-07-19 02:58:00 Adolfo Hurley [facility] ([id number]) [facility] CBC WITH DIFF 2022-07-19 02:58:00 Adolfo Hurley [facility] NOTICE OF PRIVACY 2022-07-19 02:27:02 Doctor Unassigned, No [facility] PRACTICES Name [facility] CONSENT/REFUSAL FOR 2022-07-19 02:25:51 Doctor Unassigned, [facility] Name [facility] POC GLUCOSE 2022-07-03 16:21:00 Naif Cartagena Ho spital POC GLUCOSE 2022-07-03 12:18:00 Naif Cartagena Ho spital POC GLUCOSE 2022-07-03 01:29:00 Naif Cartagena Ho spital POC GLUCOSE 2022-07-02 21:46:00 Naif Cartagena Ho spital POC GLUCOSE 2022-07-02 16:16:00 Naif Cartagena Ho spital POC GLUCOSE 2022-07-02 12:16:00 Naif Cartagena Ho spital BASIC METABOLIC PANEL 2022-07-02 10:11:00 Dayna Lutz [facility] ESTIMATED GFR 2022-07-02 10:11:00 Dayna Lutz Ho spital POC GLUCOSE 2022-07-02 01:23:00 Francesca Stevens spital POC GLUCOSE 2022-07-01 21:46:00 Francesca Stevens spital XR CHEST 1 VW PORTABLE 2022-07-01 20:15:43 Francesca Stevens [facility] PICC INSERTION REQUEST 2022-07-01 20:09:45 Autumn Martinez [facility] POC GLUCOSE 2022-07-01 16:17:00 Younis, Francesca [facility] CARBAPENEMASE GENES 2022-07-01 16:15:00 Hilda [facility] POC GLUCOSE 2022-07-01 12:23:00 Francesca Stevens [facility]ital VANCOMYCIN LEVEL, RANDOM 2022-07-01 11:14:00 JoeWilberto freeman [facility] POC GLUCOSE 2022-07-01 01:24:00 Francesca Stevens [facility] POC GLUCOSE 2022-06-30 22:08:00 Francesca Stevens [facility] POC GLUCOSE 2022-06-30 16:12:00 Francesca Stevens spital CARBAPENEMASE GENES 2022-06-30 15:00:00 Hilda [facility] POC GLUCOSE 2022-06-30 12:23:00 Francesca Stevens Ho [facility]ital BASIC METABOLIC PANEL 2022-06-30 11:31:00 Hilda [facility] CBC WITH PLATELET AND 2022-06-30 11:31:00 Hilda [facility] DIFFERENTIAL ESTIMATED GFR 2022-06-30 11:31:00 Francesca Stevens [facility]ital POC GLUCOSE 2022-06-30 01:47:00 Francesca Stevens [facility] POC GLUCOSE 2022-06-29 22:47:00 Francesca Stevens [facility] POC GLUCOSE 2022-06-29 17:19:00 Francesca Stevens [facility] POC GLUCOSE 2022-06-29 13:13:00 Francesca Stevens [facility] POC GLUCOSE 2022-06-29 02:41:00 Francesca Stevens [facility] POC GLUCOSE 2022-06-28 22:40:00 Francesca Stevens [facility] POC GLUCOSE 2022-06-28 17:47:00 Ubaldo Stevensa [facility] POC GLUCOSE 2022-06-28 13:30:00 Ubaldo Stevensa [facility] BASIC METABOLIC PANEL 2022-06-28 12:11:00 Hilda [facility] ESTIMATED GFR 2022-06-28 12:11:00 Francesca Stevens [facility] POC GLUCOSE 2022-06-28 02:28:00 Francesca tSevens Ho spital POC GLUCOSE 2022-06-27 22:12:00 Francesca [...] Walker Ho spital [employer] STAIN 2022-06-26 23:17:00 Davin Walker [facility] [employer] CULTURE 2022-06-26 23:09:00 Davin Walker [facility] FUNGUS SMEAR 2022-06-26 23:09:00 Davin Walker [facility] [employer] STAIN 2022-06-26 23:09:00 Davin Walker [facility] FUNGUS CULTURE 2022-06-26 23:09:00 Davin Walker [facility] RI AN ELECTIVE 2022-06-26 22:52:00 Jonathan Danielle [facility] SUPRAGLOTTIC AIRWAY DEBRIDEMENT, LOWER 2022-06-26 22:30:00 Aaron [facility] EXTREMITY ANAEROBIC CULTURE 2022-06-26 22:17:00 Cassidy [facility] AEROBIC CULTURE 2022-06-26 22:17:00 Davin Walker [facility] TISSUE CULTURE 2022-06-26 22:09:00 Davin Walker spital ANAEROBIC CULTURE 2022-06-26 22:09:00 [facility] 2022-06-26 21:46:00 Francesca Stevens [facility] spital POC GLUCOSE 2022-06-26 18:45:00 Francesca Stevens [facility] spital VANCOMYCIN LEVEL, RANDOM 2022-06-26 15:33:00 Brian Powell [facility] POC GLUCOSE 2022-06-26 14:15:00 Francesca Stevens spital CBC WITH PLATELET AND 2022-06-26 11:43:00 Brian Powell [facility] DIFFERENTIAL BASIC METABOLIC PANEL 2022-06-26 11:43:00 Brian Powell [facility] MAGNESIUM LEVEL 2022-06-26 11:43:00 Brian Powell [facility] PROTHROMBIN TIME WITH INR 2022-06-26 11:43:00 Louisa Escobar [facility] ESTIMATED GFR 2022-06-26 11:43:00 Brian Powell [facility] POC GLUCOSE 2022-06-26 02:46:00 Francesca Stevens spital LACTIC ACID LEVEL, SEPSIS 2022-06-26 02:02:00 Brian Powell [facility] - NOW AND REPEAT 2X EVERY 3 HOURS POC GLUCOSE 2022-06-25 22:12:00 Francesca Stevens spital LACTIC ACID LEVEL, SEPSIS 2022-06-25 22:06:00 Brian Powell [facility] - NOW AND REPEAT 2X EVERY 3 HOURS ECG 12-LEAD 2022-06-25 19:43:10 Brian Powell Tish [facility] INFLUENZA ANTIGEN TEST, 2022-06-25 19:18:00 Brian Powell [facility] REFLEX NEGATIVE TO RPP RESPIRATORY PATHOGEN 2022-06-25 19:18:00 Brian Powell [facility] PANEL WITH COVID-19 RT-PCR METHICILLIN-RESISTANT 2022-06-25 19:15:00 Brian Powell [facility] STAPHYLOCOCCUS AUREUS (MRSA), LEILANI LACTIC ACID LEVEL, SEPSIS 2022-06-25 19:01:00 Brian Powell [facility] - NOW AND REPEAT 2X EVERY 3 HOURS XR CHEST 1 VW PORTABLE 2022-06-25 18:53:03 Brian Powell [facility] XR FEMUR 2 VW LEFT 2022-06-25 18:52:28 [facility] BLOOD CULTURE, AEROBIC & 2022-06-25 18:05:00 [facility]NAEROB[facility] BLOOD CULTURE, AEROBIC & 2022-06-25 18:00:00 [facility] ANAEROBIC CBC WITH PLATELET AND 2022-06-25 17:56:00 [facility] DIFFERENTIAL COMPREHENSIVE METABOLIC 2022-06-25 17:56:00 [facility] PANEL PROTHROMBIN TIME WITH INR 2022-06-25 17:56:00 [facility] ESTIMATED GFR 2022-06-25 17:56:00 [facility] MAGNESIUM LEVEL 2022-06-25 17:56:00 [facility] POC GLUCOSE 2022-06-25 17:06:00 Francesca Stevens [facility] spital POC GLUCOSE 2022-05-14 17:15:00 [facility] VENIPUNC NEED PHYS 2022-05-14 16:30:00 Zechariah Washington [facility] SKILL,DX OR RX POC GLUCOSE 2022-05-14 13:17:00 [facility] CBC WITH PLATELET AND 2022-05-14 11:43:00 [facility] DIFFERENTIAL BASIC METABOLIC PANEL 2022-05-14 11:43:00 [facility] ESTIMATED GFR 2022-05-14 11:43:00 [facility] POC GLUCOSE 2022-05-14 02:36:00 [facility] 2022-05-13 22:14:00 [facility] POC GLUCOSE 2022-05-13 17:21:00 [facility] POC GLUCOSE 2022-05-13 13:25:00 [facility] CBC WITH PLATELET AND 2022-05-13 11:23:00 Harinder, [facility] DIFFERENTIAL BASIC METABOLIC PANEL 2022-05-13 11:23:00 [facility]IM[facility] GFR 2022-05-13 11:23:00 Harinder, [facility] POC GLUCOSE 2022-05-13 02:26:00 Harinder, [facility] POC GLUCOSE 2022 22:54:00 Harinder, [facility] POC GLUCOSE 2022 17:23:00 Harinder, [facility] POC GLUCOSE 2022 13:33:00 Harinder, [facility] CBC WITH PLATELET AND 2022 10:15:00 Harinder [facility] DIFFERENTIAL BASIC METABOLIC PANEL 2022 10:15:00 Harinder [facility] ESTIMATED GFR 2022 10:15:00 [facility] POC GLUCOSE 2022 03:36:00 Harinder, [facility] POC GLUCOSE 2022-05-11 22:17:00 [facility] BLOOD CULTURE, AEROBIC & 2022-05-11 21:45:00 Nancy [facility] ANAEROBIC BLOOD CULTURE, AEROBIC & 2022-05-11 21:28:00 Nancy [facility] ANAEROBIC POC GLUCOSE 2022-05-11 17:11:00 [facility] POC GLUCOSE 2022-05-11 13:14:00 Harinder [facility] CBC WITH PLATELET AND 2022-05-11 10:35:00 Harinder [facility] DIFFERENTIAL BASIC METABOLIC PANEL 2022-05-11 10:35:00 [facility] ESTIMATED GFR 2022-05-11 10:35:00 [facility] POC GLUCOSE 2022-05-11 02:33:00 Harinder, [facility] POC GLUCOSE 2022-05-10 22:49:00 [facility] BLOOD CULTURE, AEROBIC & 2022-05-10 22:13:00 Luchenriquebette [facility] ANAEROBIC HC NERVE BLOCK INJ 2022-05-10 19:31:21 [facility] FEMORAL SINGLE W IMG GUID HC ANESTH SCIATIC NERVE 2022-05-10 19:23:41 [facility]SE 2022-05-10 18:34:00 [facility] SURGICAL PATHOLOGY 2022-05-10 18:13:00 [facility] RE[facility] RI AN ELECTIVE 2022-05-10 17:24:00 Mari Gamboa [facility] SUPRAGLOTTIC AIRWAY AMPUTATION, BELOW KNEE 2022-05-10 16:57:00 [facility] POC GLUCOSE 2022-05-10 15:58:00 [facility] TTE COMPLETE, WO 2022-05-10 14:38:42 Nancy [facility] CONTRAST, W DOPPLER ([id number]) POC GLUCOSE 2022-05-10 13:14:00 [facility] CBC WITH PLATELET AND 2022-05-10 12:19:00 [facility] DIFFERENTIAL BASIC METABOLIC PANEL 2022-05-10 12:19:00 [facility] PARTIAL THROMBOPLASTIN 2022-05-10 12:19:[address] [facility] TIME (PTT) PROTHROMBIN TIME WITH INR 2022-05-10 12:19:00 [facility] ESTIMATED GFR 2022-05-10 12:19:00 [facility] POC GLUCOSE 2022-05-10 03:02:00 [facility] POC GLUCOSE 2022-05-09 22:30:00 [facility] POC GLUCOSE 2022-05-09 18:05:00 [facility] US ANKLE BRACHIAL INDEX 2022-05-09 17:33:01 Gail [facility] [place] VANCOMYCIN LEVEL, RANDOM 2022-05-09 16:42:00 Kenneth [facility] Scooter POC GLUCOSE 2022-05-09 13:14:00 Ron Pizano [facility] CBC WITH PLATELET AND 2022-05-09 11:25:00 Traceeinclarence [facility] DIFFERENTIAL [facility] MAGNESIUM LEVEL 2022-05-09 11:25:00 [facility] o[facility] COMPREHENSIVE METABOLIC 2022-05-09 11:25:00 [facility] PANEL [place] ESTIMATED GFR 2022-05-09 11:25:[address] MANUAL DIFFERENTIAL 2022-05-09 11:25:00 TraceeinGail lima [facility] POC GLUCOSE 2022-05-09 02:55:00 Noman Brewer MRI FOOT WO CONTRAST LEFT 2022-05-09 02:37:17 [facility] hospitalGail keenan [facility] POC GLUCOSE 2022-05-08 22:46:00 Noman Brewer COVID-19 QUALITATIVE 2022-05-08 22:35:00 [facility] RT-PCR Scooter XR FOOT 3+ VW LEFT 2022-05-08 19:44:29 [facility] Scooter BLOOD CULTURE, AEROBIC & 2022-05-08 19:34:00 [facility] ANAEROBIC Scooter CBC WITH PLATELET AND 2022-05-08 19:34:00 [facility] DIFFERENTIAL Scooter COMPREHENSIVE METABOLIC 2022-05-08 19:34:00 [facility] PANEL Scooter C-REACTIVE PROTEIN 2022-05-08 19:34:00 [facility] SEDIMENTATION RATE 2022-05-08 19:34:00 [facility] ESTIMATED GFR 2022-05-08 19:34:00 [facility] Scooter MANUAL DIFFERENTIAL 2022-05-08 19:34:00 [facility] POC GLUCOSE 2022-05-08 18:06:00 [facility] POC GLUCOSE 2022-04-19 22:41:00 [facility] CV TRANSESOPHAGEAL 2022-04-19 20:35:00 [facility] ECHOCARDIO[facility] W Angel CARDIOVERSION ECG 12-LEAD 2022-04-19 20:33:57 Davis Jaspreet Emil [facility] POC GLUCOSE 2022-04-19 17:28:00 Nadimpalli, July [facility] POC GLUCOSE 2022-04-19 13:31:00 Nadimpalli, [facility] CBC HEMOGRAM 2022-04-19 12:19:00 [facility] BASIC METABOLIC PANEL 2022-04-19 12:19:00 [facility] MAGNESIUM LEVEL 2022-04-19 12:19:00 [facility] ESTIMATED GFR 2022-04-19 12:19:00 [facility] POC GLUCOSE 2022-04-19 10:28:00 [facility] POC GLUCOSE 2022-04-19 06:29:00 [facility] POC GLUCOSE 2022-04-19 02:51:00 [facility], [facility] POC GLUCOSE 2022-04-18 22:27:00 [facility] POC GLUCOSE 2022-04-18 17:02:00 [facility], [facility] POC GLUCOSE 2022-04-18 13:25:00 [facility] CBC HEMOGRAM 2022-04-18 12:36:00 [facility] BASIC METABOLIC PANEL 2022-04-18 12:36:00 [facility] ESTIMATED GFR 2022-04-18 12:36:00 [facility] POC GLUCOSE 2022-04-18 10:01:00 [facility], [facility] POC GLUCOSE 2022-04-18 07:11:00 Nadimpalli, July [facility] URINE DRUGS OF ABUSE 2022-04-18 03:32:00 [facility] SCREEN POC GLUCOSE 2022-04-18 02:35:00 Nadimpalli, July [facility] POC GLUCOSE 2022-04-17 23:00:00 Nadimpalli, [facility] NM MYOCARDIAL PERFUSION 2022-04-17 20:04:00 [facility] REST STRESS 1 DAY CV STRESS TEST NUCLEAR 2022-04-17 20:04:00 [facility] CARDIO POC GLUCOSE 2022-04-17 17:10:00 Nadimpalli, July [facility] POC GLUCOSE 2022-04-17 13:48:00 Nadimpalljulita, July [facility] BASIC METABOLIC PANEL 2022-04-17 11:17:00 Ricky [facility] CBC HEMOGRAM 2022-04-17 11:17:00 Nadimpalli, July [facility] MAGNESIUM LEVEL 2022-04-17 11:17:00 Nadericalli, July [facility] ESTIMATED GFR 2022-04-17 11:17:00 Nadimpalli, [facility] POC GLUCOSE 2022-04-17 10:13:00 Nadimpalli, [facility] POC GLUCOSE 2022-04-17 06:09:00 Nadimpalli, [facility] POC GLUCOSE 2022-04-17 02:46:00 Nadimpalli, [facility] POC GLUCOSE 2022-04-16 23:09:00 Nadimpalli, [facility] POC GLUCOSE 2022-04-16 17:53:00 Nadimpalli, [facility] POC GLUCOSE 2022-04-16 13:40:00 Nadimpalli, [facility] POC GLUCOSE 2022-04-16 10:34:00 Nadimpalli, [facility] CBC HEMOGRAM 2022-04-16 09:46:00 Ugoeke [facility] BASIC METABOLIC PANEL 2022-04-16 09:46:00 [facility] PARTIAL THROMBOPLASTIN 2022-04-16 09:46:00 Ugoetracie [facility] TIME (PTT) ESTIMATED GFR 2022-04-16 09:46:00 Uriel Pastor spital POC GLUCOSE 2022-04-16 06:16:00 [facility] POC GLUCOSE 2022-04-16 02:38:00 [facility] POC GLUCOSE 2022-04-15 23:20:00 Uriel Pastor spital PARTIAL THROMBOPLASTIN 2022-04-15 20:59:00 Ugoe [facility] TIME (PTT) POC GLUCOSE 2022-04-15 17:50:00 Uriel Pastor spital PARTIAL THROMBOPLASTIN 2022-04-15 14:26:00 Ugoetracie [facility] TIME (PTT) POC GLUCOSE 2022-04-15 13:50:00 Uriel Pastor spital CBC HEMOGRAM 2022-04-15 09:50:00 [facility] HERPES SIMPLEX VIRUS BY 2022-04-15 09:50:00 Uriel Pastor [facility] PCR HIV 1/2 ANTIGEN/ANTIBODY, 2022-04-15 09:50:00 Uriel Pastor [facility] FOURTH GENERATION, WITH REFLEXES BASIC METABOLIC PANEL 2022-04-15 09:50:00 [facility] ESTIMATED GFR 2022-04-15 09:50:00 Uriel Pastor spital POC GLUCOSE 2022-04-15 09:49:00 Uriel Pastor spital POC GLUCOSE 2022-04-15 06:33:00 Uriel Pastor spital POC GLUCOSE 2022-04-15 05:30:00 Uriel Pastor spital PARTIAL THROMBOPLASTIN 2022-04-15 05:29:00 [facility] TIME (PTT) POC GLUCOSE 2022-04-15 02:07:00 Uriel Pastor spital POC GLUCOSE 2022-04-14 23:24:00 Uriel Pastor spital PARTIAL THROMBOPLASTIN 2022-04-14 22:35:00 [facility] POC GLUCOSE 2022-04-14 17:22:00 Uriel Pastor spital URINALYSIS SCREEN AND 2022-04-14 17:00:00 [facility] MICROSCOPY, WITH REFLEX TO CULTURE TTE COMPLETE, W CONTRAST, 2022-04-14 16:06:00 [facility] W DOPPLER ([id number]) PARTIAL THROMBOPLASTIN 2022-04-14 15:38:00 [facility] TIME (PTT) POC GLUCOSE 2022-04-14 13:37:00 Uriel Pastor spital CBC HEMOGRAM 2022-04-14 11:19:00 [facility] BASIC METABOLIC PANEL 2022-04-14 11:19:00 Pravin [facility] Efren MAGNESIUM LEVEL 2022-04-14 11:19:00 Fahad Costello ESTIMATED GFR 2022-04-14 11:19:00 Fahad Costello POC GLUCOSE 2022-04-14 10:26:00 Fahad Costello POC GLUCOSE 2022-04-14 07:01:00 Fahad Costello HEPATIC FUNCTION PANEL 2022-04-14 06:28:00 [facility] THYROID STIMULATING 2022-04-14 06:28:00 [facility] 2022-04-14 06:28:00 [facility] ([facility] Efren POC GLUCOSE 2022-04-14 01:54:00 Fahad Costello osleonel Efren POC GLUCOSE 2022-04-14 00:05:00 Fahad Costello osleopoldotal Efren XR ABDOMEN 1 VW 2022-04-13 23:25:05 René Baird Ho spital POC GLUCOSE 2022-04-13 22:54:00 Fahad Costello ospital Efren ECG 12-LEAD 2022-04-13 21:50:51 Ugelisabet [facility] BETA HYDROXYBUTYRATE 2022-04-13 21:01:00 [facility] MAGNESIUM LEVEL 2022-04-13 21:01:00 René Baird spital ESTIMATED GFR 2022-04-13 21:01:00 René Baird spital TROPONIN T 2022-04-13 21:01:00 [facility] PHOSPHORUS LEVEL 2022-04-13 21:01:00 René Baird ospital BASIC METABOLIC PANEL 2022-04-13 21:01:00 René Baird [facility] POC GLUCOSE 2022-04-13 20:54:00 Fahad Costello ospital Efren ECG 12-LEAD 2022-04-13 20:37:02 Ugoetracie [facility] TROPONIN T 2022-04-13 20:16:00 [facility] POC GLUCOSE 2022-04-13 19:03:00 Fahad Costello ospital Efren POC GLUCOSE 2022-04-13 14:07:00 Fahad Costello ospital Efren TROPONIN T 2022-04-13 13:25:00 [facility] TROPONIN T 2022-04-13 12:11:00 SilvaAdena [facility] PARTIAL THROMBOPLASTIN 2022-04-13 12:11:00 [facility] PROTHROMBIN TIME WITH INR 2022-04-13 12:11:00 [facility] ANTI XA, UNFRACTIONATED 2022-04-13 12:11:00 Renetta Ascencio [facility] ECG 12-LEAD 2022-04-13 11:43:39 [facility] POC GLUCOSE 2022-04-13 11:41:00 [facility] POC GLUCOSE 2022-04-13 07:07:00 [facility] COVID-19 QUALITATIVE 2022-04-13 05:26:00 [facility] RT-PCR [place] POC GLUCOSE 2022-04-13 05:13:00 [facility] POC GLUCOSE 2022-04-13 04:36:00 [facility] CT ANGIOGRAM PE CHEST 2022-04-13 01:07:30 [facility] [place] ECG 12-LEAD 2022-04-12 22:44:44 [facility] [place] XR CHEST 1 VW PORTABLE 2022-04-12 22:03:54 [facility] [place] ECG ED PRELIMINARY 2022-04-12 21:56:45 [facility] INTERPRETATION [place] RI CRITICAL CARE 2022-04-12 21:56:45 [facility] ILL/INJURED PATIENT INIT [place] 30-74 MIN CBC WITH PLATELET AND 2022-04-12 21:56:00 [facility] DIFFERENTIAL [place] COMPREHENSIVE METABOLIC 2022-04-12 21:56:00 [facility] PANEL [place] TROPONIN T 2022-04-12 21:56:00 [facility] [place] B NATRIURETIC PEPTIDE 2022-04-12 21:56:00 [facility] [place] ESTIMATED GFR 2022-04-12 21:56:00 [facility] [place] POC GLUCOSE 2022-03-14 21:43:00 Noman Brewer Ho spital POC GLUCOSE 2022-03-14 17:02:00 Loquias, Elain [facility] POC GLUCOSE 2022-03-14 13:46:00 Loquias, Elain [facility] POC GLUCOSE 2022-03-14 03:02:00 Loquias, Elain [facility] POC GLUCOSE 2022-03-13 23:33:00 Loquias, Elain [facility] POC GLUCOSE 2022-03-13 18:05:00 Loquias, Elain [facility] POC GLUCOSE 2022-03-13 13:57:00 Loquias, Elain [facility] POC GLUCOSE 2022-03-13 02:06:00 Loquias, Elain [facility] POC GLUCOSE 2022-03-12 22:33:00 Loquias, Elain [facility] POC GLUCOSE 2022-03-12 21:31:00 Loquias, Elain [facility] LOWER EXTREMITY 2022-03-12 20:07:00 Davin Walker Ho spital ANGIOGRAM,POSSIBLE ANGIOPLASTY,POSSIBLE STENT POC GLUCOSE 2022-03-12 15:51:00 Loquias, Noman [facility] CBC WITH PLATELET AND 2022-03-12 10:36:00 Ron Pizano [facility] DIFFERENTIAL BASIC METABOLIC PANEL 2022-03-12 10:36:00 Ron Pizano Met [facility] PROTHROMBIN TIME WITH INR 2022-03-12 10:36:00 [facility] ESTIMATED GFR 2022-03-12 10:36:00 Ron Pizano [facility] POC GLUCOSE 2022-03-12 02:25:00 Ron Pizano [facility] USPV RADHA EXTREMITY 2022-03-11 23:31:00 [facility] BILATERAL POC GLUCOSE 2022-03-11 23:16:00 Ron Pizano [facility] POC GLUCOSE 2022-03-11 17:42:00 Ron Pizano [facility] POC GLUCOSE 2022-03-11 13:36:00 Ron Pizano [facility] CBC WITH PLATELET AND 2022-03-11 12:48:00 Ron Pizano Met [facility] DIFFERENTIAL COMPREHENSIVE METABOLIC 2022-03-11 12:48:00 Harinder, [facility] PANEL ESTIMATED GFR 2022-03-11 12:48:00 [facility]SE 2022-03-11 02:16:00 [facility] METHICILLIN-RESISTANT 2022-03-11 00:23:00 Laurence Abreu [facility] STAPHYLOCOCCUS AUREUS Atul (MRSA), LEILANI POC GLUCOSE 2022-03-10 22:58:00 Harinder [facility] VANCOMYCIN LEVEL, RANDOM 2022-03-10 20:31:00 Bridgette Hernandez [facility] POC GLUCOSE 2022-03-10 17:46:00 Harinder [facility] POC GLUCOSE 2022-03-10 13:57:00 Harinder [facility] CBC WITH PLATELET AND 2022-03-10 09:15:00 Harinder [facility] DIFFERENTIAL COMPREHENSIVE METABOLIC 2022-03-10 09:15:00 Harinder [facility] PANEL MAGNESIUM LEVEL 2022-03-10 09:15:00 [facility] ESTIMATED GFR 2022-03-10 09:15:00 [facility] POC GLUCOSE 2022-03-10 02:19:00 Harinder [facility] POC GLUCOSE 2022-03-09 22:28:00 Harinder [facility] METHICILLIN-RESISTANT 2022-03-09 18:20:00 [facility] STAPHYLOCOCCUS AUREUS (MRSA), LEILANI POC GLUCOSE 2022-03-09 17:16:00 Harinder, [facility] POC GLUCOSE 2022-03-09 08:46:00 Deja [facility] POC GLUCOSE 2022-03-09 07:16:00 Deja [facility] COVID-19 QUALITATIVE 2022-03-09 07:14:00 [facility] COMPREHENSIVE METABOLIC 2022-03-09 06:10:00 Arnulfo [facility] PANEL HEMOGLOBIN A1C 2022-03-09 06:10:00 [facility] Town[facility]ipleonel [facility] LIPID PANEL 2022-03-09 06:10:00 Tonie-Og, Edgar [facility] osleopoldotal Paroginog XR FOOT 3+ VW LEFT 2022-03-09 05:56:37 [facility] BETA HYDROXYBUTYRATE 2022-03-09 05:43:00 [facility] CBC WITH PLATELET AND 2022-03-09 05:35:00 [facility] DIFFERENTIAL LACTIC ACID LEVEL, SEPSIS 2022-03-09 05:35:00 Arnulfo [facility] - NOW AND REPEAT 2X EVERY 3 HOURS VENOUS BLOOD GAS 2022-03-09 05:35:00 [facility] ESTIMATED GFR 2022-03-09 05:35:00 [facility] POC GLUCOSE 2022-03-09 03:55:00 Carroll, Yvonne [facility] POC GLUCOSE 2021-12-14 16:15:00 René De Jesus osleopoldotal Arnulfo POC GLUCOSE 2021-12-14 12:10:00 René De Jesus ospital Arnulfo POC GLUCOSE 2021-12-14 01:40:00 René De Jesus ospital [place]fo POC GLUCOSE 2021-12-13 21:17:00 René De Jesus ospital [place]fo POC GLUCOSE 2021-12-13 16:05:00 René De Jesus osleonel Arredondo POC GLUCOSE 2021-12-13 12:22:00 René De Jesus ospital [place]fo POC GLUCOSE 2021-12-13 01:36:00 René De Jesus ospital Arnulfo POC GLUCOSE 2021-12-12 22:00:00 René De Jesus VENIPUNC NEED PHYS 2021-12-12 17:56:39 Trinh Christensen [facility] SKILL,DX OR RX POC GLUCOSE 2021-12-12 16:34:00 René De Jesus osleonel Arredondo POC GLUCOSE 2021-12-12 12:27:00 René De Jesus osleonel Arredondo BASIC METABOLIC PANEL 2021-12-12 10:55:00 René De Jesus [facility] Arnulfo CBC WITH PLATELET AND 2021-12-12 10:55:00 [facility] DIFFERENTIAL Arnulfo ESTIMATED GFR 2021-12-12 10:55:00 René De Jesus [facility] LEIGH-19 ANTI-SPIKE IGG 2021-12-12 10:54:00 [facility] ANTIBODY TITER Harjinder HenaoZKOBIVID-19 SEROLOGY 2021-12-12 10:54:00 [facility] Harjinder POC GLUCOSE 2021-12-12 03:38:00 René De Jesus [facility] POC GLUCOSE 2021-12-12 01:22:00 [facility] POC GLUCOSE 2021-12-11 22:32:00 [facility] POC GLUCOSE 2021-12-11 17:04:00 [facility] POC GLUCOSE 2021-12-11 13:53:00 [facility] POC GLUCOSE 2021-12-11 08:48:00 [facility] POC GLUCOSE 2021-12-11 07:29:00 [facility] POC GLUCOSE 2021-12-11 06:36:00 [facility] COVID-19 QUALITATIVE 2021-12-11 05:55:00 Wilberto Carbajal [facility] RT-PCR POC GLUCOSE 2021-12-11 05:34:00 Wilberto Carbajal [facility] CBC WITH PLATELET AND 2021-12-11 04:02:00 Wilberto Carbajal [facility] DIFFERENTIAL COMPREHENSIVE METABOLIC 2021-12-11 04:02:00 Wilberto Carbajal [facility] PANEL LIPASE LEVEL 2021-12-11 04:02:00 Wilberto Carbajal [facility] BETA HYDROXYBUTYRATE 2021-12-11 04:02:00 Wilberto Carbajal [facility] VENOUS BLOOD GAS 2021-12-11 04:02:00 Wilberto Carbajal [facility] ESTIMATED GFR 2021-12-11 04:02:00 Wilberto Carbajal [facility] CT ABDOMEN PELVIS WO 2021-12-11 02:47:59 Wilberto Carbajal [facility] CONTRAST URINE CULTURE 2021-12-11 02:24:00 CleaningOg spital URINALYSIS SCREEN AND 2021-12-11 01:10:00 Wilberto Carbajal [facility] MICROSCOPY, WITH REFLEX TO CULTURE URINE CULTURE 2021-11-08 17:34:00 Thong Cartagena spital URINALYSIS SCREEN AND 2021-11-08 16:54:00 [facility], WITH REFLEX TO CULTURE CT RENAL STONE PROTOCOL 2021-11-08 16:35:59 [facility] CBC WITH PLATELET AND 2021-11-08 16:05:00 [facility] DIFFERENTIAL BASIC METABOLIC PANEL 2021-11-08 16:05:00 [facility] LIPASE LEVEL 2021-11-08 16:05:00 [facility] HE[facility]IC FUNCTION PANEL 2021-11-08 16:05:00 [facility] ESTIMATED GFR 2021-11-08 16:05:00 Thong Cartagena spital POC GLUCOSE 2021-11-08 15:52:00 [facility] ECG ED PRELIMINARY 2021-10-11 04:49:00 [facility] 12-LEAD 2021-10-11 03:14:36 Yannick [facility] CBC WITH PLATELET AND 2021-10-11 02:57:00 Yannick [facility] DIFFERENTIAL COMPREHENSIVE METABOLIC 2021-10-11 02:57:00 [facility] TROPONIN T 2021-10-11 02:57:00 [facility] NATRIURETIC PEPTIDE 2021-10-11 02:57:00 Yannick [facility] PROTHROMBIN TIME WITH INR 2021-10-11 02:57:00 Norberto Lanier [facility] PARTIAL THROMBOPLASTIN 2021-10-11 02:57:00 Norberto Lanier [facility] TIME (PTT) ESTIMATED GFR 2021-10-11 02:57:00 [facility] 2021-10-11 02:05:13 [facility] DI[facility] FOOT [facility]AM[facility]ATION 2021-06-29 00:00:00 Virgilio Garcia [id number]. (2028F) 2 MOST RECENT DIASTOLIC 2021-06-29 00:00:00 Virgilio Garcia 2.16.8 [id number]. BLOOD PRESSURE 80-89 MM 2 HG (HTN, CKD, CAD) (DM) (3079F) MOST RECENT SYSTOLIC 2021-06-29 00:00:00 Virgilio Garcia 2.16.84 [id number]. BLOOD PRESSURE 130-139 MM 2 HG (DM),(HTN, CKD, CAD) (3075F) NEGATIVE SCREEN FOR 2021-06-29 00:00:00 Virgilio Garcia [id number]. CLINICAL DEPRESSION, 2 FOLLOW-UP NOT REQUIRED (G8510) PATIENT IDENTIFIED A 2021-06-29 00:00:00 Virgilio Garcia [id number]. TOBACCO USER RECEIVED 2 TOBACCO CESSATION INTERVENTION (COUNSELING AND/OR PHARMACOTHERAPY) (G9906) SCREENING FOR TOBACCO USE 2021-06-29 00:00:00 Virgilio Garcia [id number]. (4004F) 2 PATIENT SCREENED FOR 2021-06-29 00:00:00 Virgilio Garcia 2.16.84 [id number]. TOBACCO USE AND 2 IDENTIFIED A TOBACCO USER (G9902) XRAY FOOT 3 VIEWS - 2021-02-02 15:18:00 Jamin Lopez [facility] ROUTINE CBC/DIFF 2021-02-02 15:12:00 Jamin Lopez alth BASIC METABOLIC PANEL 2021-02-02 15:12:00 Jamin Lopez [facility] CBC 2021-02-02 15:12:00 Jamin Lopez alth URINE CULTURE 2021-01-03 04:26:00 [facility] Richard URINALYSIS SCREEN AND 2021-01-03 04:26:00 [facility] MICROSCOPY, WITH REFLEX Richard TO CULTURE LACTIC ACID LEVEL, SEPSIS 2021-01-03 03:04:00 [facility] NOW AND REPEAT 2X EVERY [place] 3 HOURS TROPONIN 2021-01-03 03:04:00 [facility] US DUPLEX VENOUS LOWER 2021-01-03 01:53:13 [facility] EXTREMITY RIGHT Richard ECG ED PRELIMINARY 2021-01-03 01:17:47 [facility] INTERPRETATION [place] XR TIBIA FIBULA 2 VW 2021-01-03 01:05:31 [facility] RIGHT Richard XR FOOT 3+ VW LEFT 2021-01-03 01:05:05 [facility] Richard ECG 12-LEAD 2021-01-03 00:52:38 [facility] BLOOD CULTURE, AEROBIC & 2021-01-03 00:47:00 [facility] ANAEROBIC Richard BLOOD CULTURE, AEROBIC & 2021-01-03 00:45:00 [facility] ANAEROBIC Richard HC COMPLETE BLD COUNT 2021-01-03 00:43:00 [facility] W/AUTO DIFF Richard BASIC METABOLIC PANEL 2021-01-03 00:43:00 [facility] Richard HEPATIC FUNCTION PANEL 2021-01-03 00:43:00 [facility] Richard LACTIC ACID LEVEL, SEPSIS 2021-01-03 00:43:00 [facility] NOW AND REPEAT 2X EVERY Richard 3 HOURS LIPASE LEVEL 2021-01-03 00:43:00 [facility] Richard TROPONIN 2021-01-03 00:43:00 [facility] B NATRIURETIC PEPTIDE 2021-01-03 00:43:00 [facility] Richard ESTIMATED GFR 2021-01-03 00:43:00 [facility] Richard Amputation 2020-08-04 00:00:00 Sahil [facility] [id number] 2 [id number] 2020-07-04 00:00:00 DAVJO.04 [facility] [id number] 2020-07-04 00:00:00 DAVJO.04 [facility] [id number] 2020-07-04 00:00:00 DAVJO.04 [facility] [id number] 2020-07-04 00:00:00 DAVJO.04 [facility] [id number] 2020-07-04 00:00:00 DAVJO.04 [facility] [id number] 2020-07-04 00:00:00 DAVJO.04 [facility] [id number] 2020-07-04 00:00:00 DAVJO.04 [facility] [id number] 2020-07-04 00:00:00 DAVJO.04 [facility] [id number] 2020-07-01 00:00:00 [facility] [id number] 2020-07-01 00:00:00 [facility] [id number] 2020-07-01 00:00:00 [facility] [id number] 2020-07-01 00:00:00 [facility] Annual Eye Exam - FOR House, Sahil [id number]. NON-DIABETICS ONLY 2 COLONOSCOPY IN ADULT [facility]il [facility] [id number]. (79396) 2 Patient received annual [facility]il [facility] [id number] .[id number]. dental check-up 2 Teeth [facility] [id number]. 2 Plan of Care Planned Activity [...] 21 yrs)] Future Scheduled 2022-11-21 [facility] Test 10:36:19 malignant neoplasm of colon (procedure) [code = 709253176] Future Scheduled 2022-11-21 [facility] Test 10:36:19 malignant neoplasm of colon (procedure) [code = 303465897] Future Scheduled 2022-11-21 [facility] Test 10:36:19 malignant neoplasm of colon (procedure) [code = 685126387] Future Scheduled 2022-11-21 COVID-19 VACCINE (#1) [facility] 10:36:19 [code = COVID-19 VACCINE (#1)] Future Scheduled 2022-11-21 DIABETES: RETINAL EYE [facility] 10:36:19 EXAM [code = DIABETES: RETINAL EYE EXAM] Future Scheduled 2022-11-21 DIABETIC FOOT EXAM [facility] Test 10:36:19 [code = DIABETIC FOOT EXAM] Future Scheduled 2022-11-21 URINE MICROALBUMIN [facility] Test 10:36:19 [code = URINE MICROALBUMIN] Future Scheduled 2022-11-21 Hepatitis C screening [facility] 10:36:19 (procedure) [code = [id number]] Future Scheduled 2022-11-21 Screening for [facility] Test 10:36:19 malignant neoplasm of colon (procedure) [code = [id number]] Future Scheduled 2022-11-21 Screening for [facility] Test 10:36:19 malignant neoplasm of colon (procedure) [code = 778129294] Future Scheduled 2022-11-21 Screening for [facility] Test 10:36:19 malignant neoplasm of lung (procedure) [code = [id number]] Future Scheduled 2022-11-21 SHINGLES VACCINES (1 [facility] 10:[facility]:19 of 2) [code = SHINGLES VACCINES (1 of 2)] Future Scheduled 2022-11-21 [facility]ACCINE [facility]:19 [code = INFLUENZA VACCINE] Future Scheduled 2022-11-21 Screening for [facility] Test 10:36:19 malignant neoplasm of colon (procedure) [code = 463689769] Future Scheduled 2022-11-21 Screening for [facility] Test 10:36:19 malignant neoplasm of colon (procedure) [code = 244686774] Future Scheduled 2022-11-21 Scre[facility] for [facility] Test 10:36:19 malignant neoplasm of colon (procedure) [code = 678496869] Future Scheduled 2022-11-21 COVID-19 VACCINE (#1) [facility] Test 10:36:19 [code = COVID-19 VACCINE (#1)] Future Scheduled 2022-11-21 DIABETES: RETINAL EYE [facility] Test 10:36:19 EXAM [code = DIABETES: RETINAL EYE EXAM] Future Scheduled 2022-11-21 [facility] Test 10:36:19 [code = DIABETIC FOOT EXAM] Future Scheduled 2022-11-21 URINE [facility]IN [facility] Test 10:36:19 [code = URINE MICROALBUMIN] Future Scheduled 2022-11-21 [facility] Test 10:36:19 (procedure) [code = 475921420] Future Scheduled 2022-11-21 Scre[facility] for [facility] Test 10:36:19 malignant neoplasm of colon (procedure) [code = 275320695] Future Scheduled 2022-11-21 [facility] for [facility] Test 10:36:19 malignant neoplasm of colon (procedure) [code = 188491964] Future Scheduled 2022-11-21 [facility] Test 10:36:19 malignant neoplasm of lung (procedure) [code = 759844325] Future Scheduled 2022-11-21 SHINGLES VACCINES (1 [facility] 10:36:19 of 2) [code = SHINGLES VACCINES (1 of 2)] Future Scheduled 2022-11-21 INFLUENZA VACCINE [facility] 10:36:19 [code = INFLUENZA VACCINE] Future Scheduled 2022-10-10 [facility] Test 14:06:50 malignant neoplasm of colon (procedure) [code = 251305935] Future Scheduled 2022-10-10 [facility] Test 14:06:50 malignant neoplasm of colon (procedure) [code = 554422382] Future Scheduled 2022-10-10 [facility] for [facility] Test 14:06:50 malignant neoplasm of colon (procedure) [code = 792478572] Future Scheduled 2022-10-10 COVID-19 VACCINE (#1) [facility] Test 14:06:50 [code = COVID-19 VACCINE (#1)] Future Scheduled 2022-10-10 DIABETES: RETINAL EYE [facility] Test 14:06:50 EXAM [code = DIABETES: RETINAL EYE EXAM] Future Scheduled 2022-10-10 DIABETIC FOOT EXAM [facility] Test 14:06:50 [code = DIABETIC FOOT EXAM] Future Scheduled 2022-10-10 URINE [facility]AL[facility]UMIN [facility] Test 14:06:50 [code = URINE MICROALBUMIN] Future Scheduled 2022-10-10 Hepatitis C screening [facility] Test 14:06:50 (procedure) [code = 264779732] Future Scheduled 2022-10-10 Scre[facility] for [facility] Test 14:06:50 malignant neoplasm of colon (procedure) [code = 053904813] Future Scheduled 2022-10-10 [facility] Test 14:06:50 malignant neoplasm of colon (procedure) [code = 179769248] Future Scheduled 2022-10-10 [facility] Test 14:06:50 malignant neoplasm of lung (procedure) [code = 655439386] Future Scheduled 2022-10-10 SHINGLES VACCINES (1 [facility] 14:06:50 of 2) [code = SHINGLES VACCINES (1 of 2)] Future Scheduled 2022-10-10 INFLUENZA VACCINE [facility] Test 14:06:50 [code = INFLUENZA VACCINE] Future Scheduled 2022-09-26 [facility] Test 01:58:19 malignant neoplasm of colon (procedure) [code = 809833854] Future Scheduled 2022-09-26 [facility] for [facility] Test 01:58:19 malignant neoplasm of colon (procedure) [code = 129419339] Future Scheduled 2022-09-26 [facility] for [facility] Test 01:58:19 malignant neoplasm of colon (procedure) [code = 528267034] Future Scheduled 2022-09-26 COVID-19 VACCINE (#1) [facility] Test 01:58:19 [code = COVID-19 VACCINE (#1)] Future Scheduled 2022-09-26 DIABETES: RETINAL EYE [facility] Test 01:58:19 EXAM [code = DIABETES: RETINAL EYE EXAM] Future Scheduled 2022-09-26 DIABETIC FOOT EXAM [facility] Test 01:58:19 [code = DIABETIC FOOT EXAM] Future Scheduled 2022-09-26 URINE MICROALBUMIN [facility] Test 01:58:19 [code = URINE MICROALBUMIN] Future Scheduled 2022-09-26 Hepatitis C screening [facility] Test 01:58:19 (procedure) [code = 228553766] Future Scheduled 2022-09-26 [facility] for [facility] Test 01:58:19 malignant neoplasm of colon (procedure) [code = 094051370] Future Scheduled 2022-09-26 [facility] for [facility] Test 01:58:19 malignant neoplasm of colon (procedure) [code = 409423963] Future Scheduled 2022-09-26 [facility] Test 01:58:19 malignant neoplasm of lung (procedure) [code = 875951196] Future Scheduled 2022-09-26 [facility]IN[facility] 01:58:19 of 2) [code = SHINGLES VACCINES (1 of 2)] Future Scheduled 2022-09-26 INFLUENZA VACCINE [facility] Test 01:58:19 [code = INFLUENZA VACCINE] Future Scheduled 2022-09-19 COVID-19 VACCINE (#1) [facility] Test 11:07:21 [code = COVID-19 VACCINE (#1)] Future Scheduled 2022-09-19 DIABETES: [facility]INAL [facility]YE [facility] 11:07:21 EXAM [code = DIABETES: RETINAL EYE EXAM] Future Scheduled 2022-09-19 [facility] 11:07:21 [code = DIABETIC FOOT EXAM] Future Scheduled 2022-09-19 [facility] Test 11:07:21 [code = URINE MICROALBUMIN] Future Scheduled 2022-09-19 [facility] Test 11:07:21 (procedure) [code = 545413788] Future Scheduled 2022-09-19 [facility] Test 11:07:21 malignant neoplasm of colon (procedure) [code = 250597581] Future Scheduled 2022-09-19 [facility] Test 11:07:21 malignant neoplasm of lung (procedure) [code = 948022004] Future Scheduled 2022-09-19 SHINGLES VACCINES (1 [facility] 11:07:21 of 2) [code = SHINGLES VACCINES (1 of 2)] Future Scheduled 2022-09-19 INFLUENZA VACCINE [facility] Test 11:07:21 [code = INFLUENZA VACCINE] Future Scheduled 2022-08-19 COVID-19 VACCINE (#1) [facility] Test 10:24:38 [code = COVID-19 VACCINE (#1)] Future Scheduled 2022-08-19 DIABETES: RETINAL EYE [facility] 10:24:38 EXAM [code = DIABETES: RETINAL EYE EXAM] Future Scheduled 2022-08-19 [facility]ABETIC FOOT [facility]AM [facility] Test 10:24:38 [code = DIABETIC FOOT EXAM] Future Scheduled 2022-08-19 [facility]UMIN [facility] Test 10:24:38 [code = URINE MICROALBUMIN] Future Scheduled 2022-08-19 [facility] Test 10:24:38 (procedure) [code = 957710946] Future Scheduled 2022-08-19 [facility]CREENING [facility] Test 10:24:38 [code = COLONOSCOPY SCREENING] Future Scheduled 2022-08-19 [facility] Test 10:24:38 malignant neoplasm of lung (procedure) [code = 000721638] Future Scheduled 2022-08-19 [facility]INGLES [facility]ACCINES ([facility] 10:24:38 of 2) [code = [...] Future Scheduled 2022-08-19 Hepatitis C screening [facility] Test 10:24:38 (procedure) [code = 442076149] Future Scheduled 2022-08-19 COLONOSCOPY SCREENING [facility] Test 10:24:38 [code = COLONOSCOPY SCREENING] Future Scheduled 2022-08-19 [facility] Test 10:24:38 malignant neoplasm of lung (procedure) [code = 678951793] Future Scheduled 2022-08-19 SHINGLES VACCINES (1 Met [facility] Test 10:24:38 of 2) [code = [...] Future Scheduled 2022-08-19 Hepatitis C screening [facility] Test 10:24:38 (procedure) [code = 445790878] Future Scheduled 2022-08-19 COLONOSCOPY SCREENING Me [facility] Test 10:24:38 [code = COLONOSCOPY SCREENING] Future Scheduled 2022-08-19 [facility] Test 10:24:38 malignant neoplasm of lung (procedure) [code = 955754928] Future Scheduled 2022-08-19 SHINGLES VACCINES (1 Met [facility] Test 10:24:38 of 2) [code = SHINGLES VACCINES (1 of 2)] Future Scheduled 2022-08-19 INFLUENZA VACCINE [facility] Test 10:24:38 [code = INFLUENZA VACCINE] Future Scheduled 2022-08-19 COVID-19 VACCINE (#1) [facility] Test 10:24:38 [code = COVID-19 VACCINE (#1)] Future Scheduled 2022-08-19 DIABETES: RETINAL EYE Me [facility] Test 10:24:38 EXAM [code = DIABETES: RETINAL EYE EXAM] Future Scheduled 2022-08-19 [facility]ABETIC FOOT [facility]AM [facility] Test 10:24:38 [code = DIABETIC FOOT EXAM] Future Scheduled 2022-08-19 [facility] Test 10:24:38 [code = URINE MICROALBUMIN] Future Scheduled 2022-08-19 Hepatitis C screening [facility] Test 10:24:38 (procedure) [code = 234907595] Future Scheduled 2022-08-19 COLONOSCOPY SCREENING [facility] Test 10:24:38 [code = COLONOSCOPY SCREENING] Future Scheduled 2022-08-19 [facility] Test 10:24:38 malignant neoplasm of lung (procedure) [code = 123270767] Future Scheduled 2022-08-19 SHINGLES VACCINES (1 Met [facility] Test 10:24:38 of 2) [code = [...] Future Scheduled 2021-12-17 HEPATITIS B VACCINES Met [facility] Test 10:00:08 (1 of 3 - 3-dose series) [code = HEPATITIS B VACCINES (1 of 3 - 3-dose series)] Future Scheduled 2021-12-17 COVID-19 VACCINE (#1) [facility] Test 10:00:08 [code = COVID-19 VACCINE (#1)] Future Scheduled 2021-12-17 Pneumococcal Vaccine: [facility] Test 10:00:08 Pediatrics (0 to 5 Years) and At-Risk Patients (6 to 64 Years) (1 - PCV) [code = Pneumococcal Vaccine: Pediatrics (0 to 5 Years) and At-Risk Patients (6 to 64 Years) (1 - PCV)] Future Scheduled 2021-12-17 Hepatitis C screening [facility] Test 10:00:08 (procedure) [code = 209312191] Future Scheduled 2021-12-17 COLONOSCOPY SCREENING [facility] Test 10:00:08 [code = COLONOSCOPY SCREENING] Future Scheduled 2021-12-17 SHINGLES VACCINES (1 Met [facility] Test 10:00:08 of 2) [code = SHINGLES VACCINES (1 of 2)] Future Scheduled 2021-12-17 INFLUENZA VACCINE Method [facility] Test 10:00:08 [code = INFLUENZA VACCINE] Future Scheduled 2021-12-17 HEPATITIS B VACCINES Met [facility] Test 10:00:08 (1 of 3 - 3-dose series) [code = HEPATITIS B VACCINES (1 of 3 - 3-dose series)] Future Scheduled 2021-12-17 COVID-19 VACCINE (#1) [facility] Test 10:00:08 [code = COVID-19 VACCINE (#1)] Future Scheduled 2021-12-17 Pneumococcal Vaccine: [facility] Test 10:00:08 Pediatrics (0 to 5 Years) and At-Risk Patients (6 to 64 Years) (1 - PCV) [code = Pneumococcal Vaccine: Pediatrics (0 to 5 Years) and At-Risk Patients (6 to 64 Years) (1 - PCV)] Future Scheduled 2021-12-17 Hepatitis C screening [facility] Test 10:00:08 (procedure) [code = 604811266] Future Scheduled 2021-12-17 COLONOSCOPY SCREENING [facility] Test 10:00:08 [code = COLONOSCOPY SCREENING] Future Scheduled 2021-12-17 SHINGLES VACCINES (1 Met [facility] Test 10:00:08 of 2) [code = SHINGLES VACCINES (1 of 2)] Future Scheduled 2021-12-17 INFLUENZA VACCINE [facility] Test 10:00:08 [code = INFLUENZA VACCINE] Diagnostic Test 2021-06-29 HEMOGLOBIN GLYCLATED Pending 14:06:03 (HGB A1C) (01666) [code = 58092] Diagnostic Test 2021-06-29 CBC & PLATELETS (AUTO) Pending 14:05:14 (83608) [code = 81665] Diagnostic Test 2021-06-29 MICROALBUMIN/CREAT. Pending 13:35:45 RATIO WITH CREATININE (ALONDRA URINE) (51193) [code = 15444] Diagnostic Test 2021-06-29 LIPID PANEL (23238) Pending 13:35:39 [code = 93905] Diagnostic Test 2021-06-29 COMPREHENSIVE Pending 13:35:39 METABOLIC PANEL (30049) [code = 47352] Future Scheduled 2017 [facility] 00:[facility]:00 malignant neoplasm of colon (procedure) [code = 088200874] Future Scheduled 2017 [facility] Test 00:00:00 malignant neoplasm of colon (procedure) [code = 680180773] Future Scheduled 2017 [facility] Test 00:00:00 malignant neoplasm of colon (procedure) [code = 541055905] Future Scheduled 2017 [facility] 00:00:00 malignant neoplasm of colon (procedure) [code = 381941837] Future Scheduled 2017 [facility] Test 00:00:00 malignant neoplasm of colon (procedure) [code = 741364770] Future Scheduled 2017 [facility] Test 00:00:00 malignant neoplasm of colon (procedure) [code = 282058456] Future Scheduled 2017 [facility] Test 00:00:00 malignant neoplasm of colon (procedure) [code = 339293710] Future Scheduled 2017 [facility] 00:00:00 malignant neoplasm of colon (procedure) [code = 104440300] Future Scheduled 2017 [facility] 00:00:00 malignant neoplasm of colon (procedure) [code = 895928790] Future Scheduled 2017 [facility] 00:00:00 malignant neoplasm of colon (procedure) [code = 837972720] Future Scheduled 1985 DM [facility] 00:00:00 (Yearly) [code = DM Retinal Exam (Yearly)] Future Scheduled 1985 Diabetic foot [facility] Test 00:00:00 examination (regime/therapy) [code = 051861971] Future Scheduled 1985 [facility] 00:[facility]:00 protein (procedure) [code = 191796232] Future Scheduled 1985 DM [facility] 00:00:00 (Yearly) [code = DM Retinal Exam (Yearly)] Future Scheduled 1985 [facility] 00:00:00 examination (regime/therapy) [code = 975644344] Future Scheduled 1985 [facility] 00:00:00 protein (procedure) [code = 993143298] Future Scheduled 1985 [facility] 00:00:00 (Yearly) [code = DM Retinal Exam (Yearly)] Future Scheduled 1985 [facility] 00:00:00 examination (regime/therapy) [code = 117232990] Future Scheduled 1985 [facility] 00:00:00 protein (procedure) [code = 351829767] Future Scheduled 1985 [facility] 00:00:00 (Yearly) [code = DM Retinal Exam (Yearly)] Future Scheduled 1985 [facility] 00:00:00 examination (regime/therapy) [code = 005407507] Future Scheduled 1985 [facility] 00:00:00 protein (procedure) [code = 404457319] Future Scheduled 1985 DM [facility] 00:00:00 (Yearly) [code = DM Retinal Exam (Yearly)] Future Scheduled 1985 [facility] 00:00:00 examination (regime/therapy) [code = 303003561] Future Scheduled 1985 [facility] 00:00:00 protein (procedure) [code = 621617596] Future Scheduled 1985 DM [facility] 00:00:00 (Yearly) [code = DM Retinal Exam (Yearly)] Future Scheduled 1985 DM Foot Exam (Yearly) [facility] Test 00:00:00 [code = DM Foot Exam (Yearly)] Future Scheduled 1985 [facility] 00:00:00 protein (procedure) [code = 719831922] Future Scheduled 1985 DM [facility] 00:00:00 (Yearly) [code = DM Retinal Exam (Yearly)] Future Scheduled 1985 DM Foot Exam (Yearly) [facility] Test 00:00:00 [code = DM Foot Exam (Yearly)] Future Scheduled 1985 [facility] 00:00:00 protein (procedure) [code = 505269734] Future Scheduled 1985 DM [facility] 00[facility]00:00 (Yearly) [code = DM Retinal Exam (Yearly)] Future Scheduled 1985 [facility] Test 00:00:00 examination (regime/therapy) [code = 680272722] Future Scheduled 1985 [facility] 00:00:00 protein (procedure) [code = 496553114] Future Scheduled 1985 DM [facility] 00:00:00 (Yearly) [code = DM Retinal Exam (Yearly)] Future Scheduled 1985 [facility] 00:00:00 examination (regime/therapy) [code = 815199099] Future Scheduled 1985 [facility] 00:00:00 protein (procedure) [code = 627739141] Future Scheduled 1985 DM [facility] 00:00:00 (Yearly) [code = DM Retinal Exam (Yearly)] Future Scheduled 1985 [facility] 00:00:00 examination (regime/therapy) [code = 247713028] Future Scheduled 1985 [facility] 00:00:00 protein (procedure) [code = 452659524] Future Scheduled 1967 COVID-19 Vaccine (#1) [facility] Test 00:00:00 measurement (procedure) [code = 88473652] Future Scheduled 1967 [facility] A1c [facility] 00:[facility]:00 measurement (procedure) [code = 18686002] Future Scheduled 1967 [facility] A1c [facility] 00:00:00 measurement (procedure) [code = 10943666] Future Scheduled 1967 Fluoride Varnish [facility] 00:00:00 = Fluoride Varnish] Future Scheduled 1967 [facility] A1c [facility] 00:00:00 measurement (procedure) [code = 29761145] Future Scheduled 1967 Fluoride Varnish [[facility] 00:00:00 = Fluoride Varnish] Future Scheduled 1967 [facility]1c [facility] 00:00:00 measurement (procedure) [code = 04292919] Future Scheduled 1967 [facility] A1c [facility] 00:00:00 measurement (procedure) [code = 25725374] Future Scheduled 1967 [facility]oglobin A1c [facility] 00:00:00 measurement (procedure) [code = 37181514] Future Scheduled 1967 [facility]oglobin A1c [facility] 00:00:00 measurement (procedure) [code = 99477209] Future Scheduled 1967 [facility]1c [facility] 00:00:00 measurement (procedure) [code = 54835464] Future Scheduled 1967 [facility]1c [facility] 00:00:00 measurement (procedure) [code = 17273246] Encounters Start End Encounter Admission Attending Care Care Encounter Source Date/Time Date/Time Type Type Clinicians Facility Department ID 2022-12-10 Outpatient [id number] [facility] 22:20:45 84P6-024N E6-428F-910 5Z8-955V- 9 l -9100-AED [id number] 100-ZBQ247 [place] [id number] [id number] 2022-12-05 Outpatient [id number] B9E6 20FB-3 [facility] 00:38:36 04W3-202H B8-416D-815 0I0-093F- 8 l -8153-A18 3-G49Q10U4P 153-A18A09 [place] [id number] C76 B5BC76 2022-10-14 Outpatient [id number] A598 2A76-1 [facility] 00:41:12 7MW5-9C1R B3-8G9G-54T BB3-4D6D- 9 l -95S1-982 5-549HU7710 0A8-280WH6 [place] DU9093OHV CBB 615CBB 2022-09-26 Outpatient [id number]- 5PAS9J13-QL 8BAA 2C28-B [facility] 22:55:52 BDD8-45A9 D8-87Z3-A77 DD8-45A9- A l -I95B-468 C-3845R4M4D 65C-0738A6 [place] 3C4R2R5MT 9CA A9E9CA 2022-09-23 Outpatient [id number] 9A1A 7215-2 [facility] 15:40:06 68P8-1318 D4-4114-817 9B3-8959- 8 l -8170-0E7 0-3P98117A1 170-3F3733 [place] 2605H81E3 1C5 7F51C5 2022-09-18 Outpatient [id number]- Z19ORX56-75 B36D ED90-5 [facility] 10:27:41 541D-469D 1D-469D-BD0 41D-469D- B l -UT30-35M 8-64I4LD684 M51-85E4OG [place] [id number] 07A 79262D 2022-09-05 Outpatient [id number]- [id number] 2321 5DA0-4 [facility] 19:47:40 4550-4F68 50-1O94-6XK 550-4F68- 9 l -5DL2-U42 8-W095X9EV3 EF8-C365D8 [place] 8A7AS7H83 C31 EA8C31 2022-08-22 Outpatient [id number]- 439QX4NR-OZ 040A D3FD-E [facility] 13:17:42 EEDC-4D67 DC-7Q87-K7Q EDC-4D67- B l -A3K8-JI4 8-AA7857286 8F2-DY9284 [place] [id number] [id number] 9046-05-01 Outpatient [id number]- [id number]-[id number] 2664 7F96-A [facility] 10:26:06 H9I0-2U86 D0-5Z33-MP7 5T1-7M37- B l -PA3E-X27 D-K12I316Y0 N2O-X74X12 [place] [id number] 284 2Y8908 2022-07-01 Outpatient [id number]- 75QI32A7-1S 52CB 02A8-1 [facility] 18:22:57 6Y30-7F1P 86-8L0Q-C2C S56-7U2V- A l -X8OJ-426 F-387V164GR 7DF-972C65 [place] E171WT572 841 6OU904 2022-06-25 Outpatient X061PD7B- T663XK7N-17 C555 AD3A-6 [facility] 13:13:28 6801-408F 01-408F-9CD 801-408F- 9 l -1QE3-1T0 5-5S90L8657 CD5-9B11D0 [place] 8P6141AXX CAF 333CAF 2022-06-21 Outpatient [id number]- [id number] 2314 01CA-8 [facility] 16:24:21 8273-427F 73-427F-927 273-427F- 9 l -9279-910 9-6654875KW 279-859414 [place] 5467EP49V 00D 8DD00D 2022-05-10 Outpatient [id number]- 8N0OP614-M3 2E9D D710-A [facility] 06:40:42 H31H-15N6 5F-24M3-70H 65F-48A2- 9 l -90N7-1G3 9-8Y108GISY 1S7-0E995A [place] 78HKDE588 329 CYY129 2022-05-08 Outpatient BKV3DLA0- VMB2MGS7-85 BEF6 CBA3-5 [facility] 15:37:53 503B-4880 3B-4880-9B6 03B-4880- 9 l -9W8Y-5KM D-6AGV30092 L1Q-2QCH62 [place] [id number] C18 509C18 2022-04-19 Outpatient 2XHM0J2X- 0IDR4D3F-71 1BBB 5C0D-8 [facility] 13:59:31 17A2-6471 F1-4973-998 6S6-9238- 9 l -998B-F76 B-C53900649 98B-K23688 [place] [id number] 3828-12-28 Outpatient 36FZQ75F- 20NJK67I-LP 79BE F91E-D [facility] 13:31:43 DAD3-4873 D3-4873-877 AD3-4873- 8 l -8771-2E6 1-0Y0G461C6 771-2E6E91 [place] Y920H2843 342 1E4299 2022-04-13 Outpatient 6156Y1O2- 6070B6Z1-63 4505 A0B3-1 [facility] 15:36:01 15FB-4C6B FB-3O9E-G08 5FB-4C6B- A l -Y64I-V97 B-L74J6W383 59B-D42D0C [place] C5Z794U0P A6F 833A6F 2022-04-12 Outpatient 63B1PQK1- 54U0FDP5-9K 06B9 BCB5-0 [facility] 15:30:39 8K04-8DO8 07-6WC3-743 P46-0CG1- 9 l -9202-AD6 2-IP48M35GO 202-AD61D6 [place] 1C06SWY85 A84 7EAA84 2022-03-11 Outpatient [id number]- 264H6GW3-38 938D 5EE5-8 [facility] 19:30:21 857A-4A82 7A-6R54-J1F 57A-4A82- B l -S9O5-5P0 5-6N70899CH 5D7-4Z1630 [place] 4455NU994 155 9FN656 2022-03-08 Outpatient [id number]- [id number] 3A45 0898-9 [facility] 21:44:29 9339-4C22 39-3C25-H72 339-4C22- A l -X45L-33P E-83T77JOWZ 45E-85D07A [place] 77KFUU945 545 AIC532 2022-01-04 Outpatient 1UJZ6ISW- 2LGA3BUU-1K 9DDA 6CAA-4 [facility] 07:00:32 0O78-2002 77-4012-BA3 V38-9278- B l -HC10-E05 9-E93VTYBJ4 O64-N08GLR [place] VMEZY7UX4 CD2 AD3CD2 2021-12-31 Outpatient [id number]- 704426J8-[id number] 3447 38E1-B [facility] 12:10:15 W4E5-405D E1-485D-91D 9C5-958S- 9 l -56P9-L83 2-U93637191 5F4-O74347 [place] 672571MP1 AC5 327AC5 2021-10-07 Inpatient Roa, HCABM HCABM [id number] [facility] 06:58:00 Jerry [id number] [facility] 2021-07-14 Outpatient [facility] LS [id number] [place] 04:59:20 [id number] [facility] 2021-06-28 Outpatient [facility] LS [id number] [facility] 15:37:52 [id number] [facility] 2021-06-15 Outpatient [facility] LS [id number] [facility] 11:20:44 [id number] [facility] 2021-03-30 Outpatient [id number]- 2621WY82-4H 9110 FB25-7 [facility] 23:09:22 8S42-624M 85-469A-9A5 C03-042J- 9 l -1I0P-S21 B-R6270L010 Z6T-A4546S [place] [id number] B38 918B38 2020-06-30 Inpatient HCAKW HCAKW [id number] [facility] 09:04:59 17 [facility] 2020-02-27 Inpatient HCACR AMA [id number] [facility] 13:37:00 01 [facility] 2019-10-08 Inpatient HCABM NCER [id number] [facility] 12:23:00 18 [facility] 2022-12-17 2022-12-17 Outpatient R JULIANN [facility] [id number] [facility] 08:30:00 08:30:00 JEIN ity [facility] 2022-12-13 2022-12-13 Outpatient R KAIN [facility] [id number] Univers 11:30:00 11:30:00 ALEXANDRA ity [facility] 2022-12-10 2022-12-10 Outpatient R RENEE [facility] [id number] Univers 16:00:00 16:00:00 LEIGHTON JEFFERSON it y [facility] 2022-12-05 2022-12-05 [facility] [id number] Univers 00:00:00 00:00:00 Alexandra [facility] [id number] it y of [place] [id number] Suhas as ИРИНА?BLEA [id number] [address] OFFICE [facility] 2022-12-03 2022-12-03 Outpatient R JULIANN [facility] [id number] Univers 08:00:00 08:00:00 [facility] 2022-11-14 2022-11-14 Telephone Nimo [facility] [id number] Univers 00:00:00 00:00:00 Ramón [facility] [id number] [facility] [id number] [place] PROFESSIO [id number] [address] 2022-11-06 2022-11-06 Office [facility] 1.2.840.114 [id number] Univers 14:30:00 14:40:59 Visit Ramón CHAMBERS 350.1.13.10 ity [facility] [place] [phone] Pa henrikri NAL [address] [address] 2022-11-06 2022-11-06 Outpatient R RAMÓN KRAFT [facility] [id number] Univers 14:30:00 14:40:59 RAMÓN KRAFT [facility] 2022-11-06 2022-11-06 Office Nimo [facility] 1.2.840.114 [id number] Univers 13:30:00 14:39:47 Visit Ramón CHAMBERS 350.1.13.10 ity of [place] [id number] Pa dical NAL 044 [facility] 2022-10-21 2022-10-21 Outpatient R MOERNITA [facility] [id number] Univers 13:30:00 13:30:00 PATRICK [facility] 2022-10-16 2022-10-16 Refill [facility] 1.2.840.114 [id number] Univers 00:00:00 00:00:00 Alexandra CHAMBERS 350.1.13.10 i ty [place] [phone] Pa dical NAL 044 [facility] 2022-10-11 2022-10-11 Outpatient [facility] [id number] Univers 08:00:00 08:00:00 RUMARCUSING [facility] 2022-10-02 2022-10-02 Telephone Kain [facility] 1.2.359.440 2150 [id number] Univers 00:00:00 00:00:00 Alexandra CHAMBERS 350.1.13.10 i ty of [place] [phone] Pa dical [facility] 231 [facility] 2022-09-25 2022-09-25 Orders Doctor GILBERT 1.2.840.114 [id number] Univers 00:00:00 00:00:00 Only Unassigned, BRANDEE 350.1.13.10 ity of [place] [facility] 4.2.7.2.686 Suhas as [phone] [address] 2022-09-20 2022-09-20 Outpatient R JULIANN [facility] [id number] Univers 13:00:00 13:00:00 JENI [facility] 2022-09-18 2022-09-18 Telephone [facility] 1.2.839.025 7288 [id number] Univers 00:00:00 00:00:00 Alexandra TRISH 350.1.13.10 i ty of [place].2.[place] [phone] Pa dical [address] 2022-09-18 2022-09-18 Telephone [facility] 1.2.732.618 5718 25263 Univers 00:00:00 00:00:00 Alexandra TRISH 350.1.13.10 i ty [facility] 4.2.[place] [phone] [address] 2022-09-17 2022-09-17 Telephone [facility] 1.2.840.114 103 [id number] Univers 00:00:00 00:00:00 Jeni AN[place]UNG 350.1.13.10 i ty [facility] 4.2.[place] [phone] [address] 2022-09-13 2022-09-13 Outpatient R [facility] [id number] Univers 11:00:00 11:00:00 ity of [facility] 2022-09-13 2022-09-13 Telephone [facility] 1.2.840.114 103 [id number] Univers 00:00:00 00:00:00 Ramón CHAMBERS 350.1.13.10 ity [facility] 4.[place] [phone] [address] 2022-09-13 2022-09-13 Telephone [facility] 1.2.840.114 103 [id number] Univers 00:00:00 00:00:00 Jeni [place] 350.1.13.10 i ty [facility] 4.2.7.2.[place] [id number] [address] 2022-09-12 2022-09-12 Emergency [facility] 1.2.840.114 10 [id number] Univers 21:33:00 22:56:00 Hui CHAMBERS 350.1.13.10 ity of [facility] 4.2.7.2.[place] [id number] [facility] [address] 2022-09-12 2022-09-12 Outpatient R [facility] ERT [id number] Univers 15:07:02 21:32:00 ALEXANDRA ity [facility] 2022-09-12 2022-09-12 Hospital [facility] 1.2.840.114 [id number] Univers 15:07:02 21:32:00 Encounter Alexandra CHAMBERS 350.1.13.10 ity of [facility] 4.2.7.2.[place] [phone] [facility] [address] 2022-09-12 2022-09-12 Quality Technician 2, Adc Lab [facility] 1.2.840.114 [id number] Univers 15:30:00 15:45:00 Visit Alexandra Finnegan 350.1.13.10 ity of [place] [phone] Pa dical NAL 353 [facility] 2022-09-12 2022-09-12 Out[facility] [id number] Univers 13:30:00 14:26:44 ALEXANDRA consuelogrant [facility] 2022-09-12 2022-09-12 Office [facility] 1.2.840.114 [id number] 732 Univers 13:30:00 14:26:44 Visit Alexandra CHAMBERS 350.1.13.10 i ty of [place].2.[place] [phone] Pa dical NAL 044 [facility] 2022-09-12 2022-09-12 Telephone [facility] 1.2.987.422 2349 24992 Univers 00:00:00 00:00:00 Alexandra CHAMBERS 350.1.13.10 i ty of [place].2.[place] [phone] Pa dical NAL 044 [facility] 2022-09-12 2022-09-12 Telephone [facility] 1.2.849.366 4120 16903 Univers 00:00:00 00:00:00 Alexandra TRISH 350.1.13.10 i ty [place] [id number] [address] 2022-09-11 2022-09-11 Telephone [facility] 1.2.840.114 103 [id number] Univers 00:00:00 00:00:00 Ogranjaeu ADDISTON 350.1.13.10 ity of [facility] 4.2.[place].2.[place] [phone] [address] 2022-09-10 2022-09-10 Outpatient R JULIANN [facility] [id number] Univers 10:30:00 11:36:35 JENI ity of [facility] 2022-09-06 2022-09-06 [facility] 1.2.840.114 103 [id number] Univers 00:00:00 00:00:00 Ramón CHAMBERS 350.1.13.10 ity of [place] [phone] [address] 2022-09-06 2022-09-06 [facility] 1.2.840.114 103 [id number] Univers 00:00:00 00:00:00 Ramón CHAMBERS 350.1.13.10 ity of [place] [phone] [address] 2022-09-05 2022-09-05 [facility] 1.2.840.114 [id number] [id number] Univers 00:00:00 00:00:00 Ogranjaeu [place] 350.1.13.10 ity of [place].2.[place] [phone] [address] 2022-09-04 2022-09-04 Patient Bao [facility] 1.2.840.114 [id number] Univers 00:00:00 00:00:00 Outreach Mari Schmitz TRISH 350.1.13.10 ity of [place] 4[place].7.2.[place] [id number] [address] 2022-09-04 2022-09-04 Orders Doctor GILBERT 1.2.840.114 [id number] Univers 00:00:00 00:00:00 Only Unassigned, BRANDEE 350.1.13.10 ity of [place] [facility] 4.2.7.2.686 Suhas as [phone] [address] 2022-09-02 2022-09-02 Telephone Nimo, [facility] 1.2.840.114 103 [id number] Univers 00:00:00 00:00:00 Ogranjaeangelo TRISH 350.1.13.10 ity of [facility] 4.2.[place] [id number] [address] 2022-08-30 2022-08-30 Telephone Nimo, [facility] 1.2.840.114 103 [id number] Univers 00:00:00 00:00:00 Ogranjaeangelo MANCINIHUNG 350.1.13.10 ity of [place] [id number] [address] 2022-08-28 2022-08-28 Telephone [facility], [facility] 1.2.840.114 103 [id number] Univers 00:00:00 00:00:00 Ogranjaeangelo ADDISTON 350.1.13.10 ity of [facility] 4.2.7.2.[place] [phone] Pa dic[address] 2022-08-27 2022-08-27 Telephone Nimo, [facility] 1.2.840.114 103 [id number] Univers 00:00:00 00:00:00 Ogranjaeu [place] 350.1.13.10 ity of [facility] 4.2.7.2.[place] [phone] [address] 2022-08-27 2022-08-27 Telephone [facility] 1.2.840.114 103 [id number] Univers 00:00:00 00:00:00 Ogechukwu [place] 350.1.13.10 ity of [facility] 4.2.7.2.[place] [phone] [address] 2022-08-26 2022-08-26 Orders Doctor GILBERT 1.2.840.114 [id number] Univers 00:00:00 00:00:00 Only Unassigned, BRANDEE 350.1.13.10 ity of [place] [facility] 4.2.7.2.686 Suhas as [phone] [address] 2022-08-26 2022-08-26 Telephone [facility] 1.2.840.114 103 [id number] Univers 00:00:00 00:00:00 Ogechukwu [place] 350.1.13.10 ity [place] [phone] [address] 2022-08-21 2022-08-21 Abstract [facility] 1.2.690.403 7519 84959 Univers 00:00:00 00:00:00 Ogechukwu [place] 350.1.13.10 ity of [facility] 4.2.7.2.[place] 370.7276201 [address] 2022-08-19 2022-08-19 Telephone [facility] 1.2.840.114 102 [id number] Univers 00:00:00 00:00:00 Ogechukwu [place] 350.1.13.10 ity [place]2.[place].2.[place] [phone] [address] 2022-08-15 2022-08-15 Outpatient R RENEE [facility] [id number] Univers 15:40:00 15:40:00 LEIGHTON JEFFERSON of [facility] 2022-08-14 2022-08-14 Emergency X CHASITY [facility] ERT [id number] Univers 00:06:00 03:01:00 LES ity [facility] 2022-08-14 2022-08-14 Emergency [facility] 1.2.840.114 1 [id number] Univers 00:06:00 03:01:00 Les CHAMBERS 350.1.13.10 i ty [place] [id number] [facility] [address] 2022-08-08 2022-08-08 Outpatient R CIARA [facility] [id number] Univers 16:45:00 15:22:09 BLAS ity [facility] 2022-08-07 2022-08-07 Orders Doctor GILBERT 1..840.114 [id number] Univers 00:00:00 00:00:00 Only Unassigned, BRANDEE 350.1.13.10 ity of [place] [facility] 4.2.7.2.686 Suhas as [phone] [facility] [address] 2022-08-07 2022-08-07 Telephone Nimo [facility] 1.2.840.114 102 [id number] Univers 00:00:00 00:00:00 Rmaón CHAMBERS 350.1.13.10 ity of [place] [phone] [address] 2022-08-05 2022-08-05 Outpatient R RAMÓN KRAFT [facility] [id number] Univers 13:00:00 14:16:22 RAMÓN KRAFT ity [facility] 2022-08-05 2022-08-05 Office Nimo [facility] 1.2.840.114 [id number] Univers 13:00:00 14:16:22 Visit Ramón CHAMBERS 350.1.13.10 ity of [place] [phone] [address] 2022-08-05 2022-08-05 Patient Bao [facility] 1.2.840.114 [id number] 714 Univers 00:00:00 00:00:00 Outreach Mari CHAMBERS 350.1.13.10 ity [facility] 4.[place] 190.0008064 Pa dic[address] 2022-08-02 2022-08-02 Orders Doctor GILBERT 1.2.840.114 [id number] Univers 00:00:00 00:00:00 Only Unassigned, BRANDEE 350.1.13.10 ity of [place] [facility] 4.2.7.2.686 Suhas as [phone] [facility] [address] 2022-08-02 2022-08-02 Telephone GILBERT Mcneal 1.2.840.114 10 [id number] Univers 00:00:00 00:00:00 Clare IRVIN 350.1.13.10 it y of HOSPITAL 4.2.7.2.686 [place] as 179.7224099 [facility] [address] 2022-08-01 2022-08-01 Transition TANI Snow 1.2.840.114 102 [id number] Univers 00:00:00 00:00:00 of Care Alex Modi ANDREW 350.1.13.10 ity of [place].2.[place] [phone] [facility] [address] 2022-08-01 2022-08-01 Telephone GILBERT Mcneal 1.2.840.114 10 [id number] Univers 00:00:00 00:00:00 Clare BRANDEE 350.1.13.10 it y of HOSPITAL 4.2.7.2.686 [place] as 484.7424713 [facility] [address] 2022-07-28 2022-07-31 [facility] [id number] Univers 01:36:00 19:14:00 MALIK ity of [facility] 2022-07-28 2022-07-31 Hospital Brennan Love 1.2.840.114 [id number] Univers 01:36:00 19:14:00 Encounter Mayo Malik BRANDEE 350.1.13.10 ity of [facility] 4.2.7.2.686 Suhas as [phone] [facility] [address] 2022-07-18 2022-07-19 Emergency Critical access hospital 1.2.448.249 7675 90574 Univers 21:30:00 01:47:00 [facility] 4.2.7.2.686 [facility] [phone] [place] [address] [address] 2022-07-18 2022-07-19 Emergency X [facility] ERT [id number] Univers 21:30:00 01:47:00 HIELLIS [facility] 2022-06-25 2022-07-03 [facility] 1.2.840.1 [id number] Methodi 10:52:00 03:00:00 Encounter Wilberto Joe Thiago 10261.1.1 124 Naif Benton 3.430.2.7 H ospita .3.556896 l .8 2022-06-25 2022-07-03 [facility] 1.2.840.1 [id number] Methodi 10:52:00 03:00:00 Encounter Wilberto Joe Nhrian 21137.1.1 124 Edmund Bentonmin 3.430.2.7 H ospita .3.846089 l .8 2022-07-03 2022-07-03 Documentat Abrams, 1.2.840.1 [id number] 2 [id number] Methodi 00:00:00 00:00:00 [address]484.1.[address] 3.430.2.7 Hospit a .3.632576 l .8 2022-07-03 2022-07-03 Documentat Abrams, 1.2.840.1 [id number] 2 [id number] Methodi 00:00:00 00:00:[address]1.[address] 3.430.2.7 Hospit a .3.954703 l .8 2022-06-26 2022-06-26 Surgery Aaron, 1.2.840.1 [id number] 934484 8468 Methodi 16:50:00 18:20:[address] 3.430.2.7 Hospit a .3.922121 l .8 2022-06-26 2022-06-26 Surgery Nur, 1.2.840.1 [id number] 097841 3517 Methodi 16:50:00 18:20:[address] 3.430.2.7 Hospit a .3.186149 l .8 2022-06-26 2022-06-26 Anesthesia [facility] 1.2.840.1 104 422807 9409741134 Methodi 16:46:00 17:36:00 Event Brian Thong Helms 01910.1.[address] 3.430.2.7 Hospit a .3.831165 l .8 2022-06-26 2022-06-26 Anesthesia [facility] 1.2.840.1 104 135004 2624220149 Methodi 16:46:00 17:36:00 Event Brian Thong Scooter 19910.1.[address] 3.430.2.7 Hospit a .3.057650 l .8 2022-06-25 2022-06-25 Office Nur, 1.2.840.1 [id number] 416368 4166 Methodi 09:00:00 10:28:55 Visit Jin 58014.1.[address] 3.430.2.7 Hospit a .3.446881 l .8 2022-06-25 2022-06-25 Office Nurko, 1.2.840.1 855523593 027768 1202 Methodi 09:00:00 10:28:55 Visit Jin 95958.1.[address] 3.430.2.7 Hospit a .3.106442 l .8 2022-06-25 2022-06-25 Travel 1.2.840.1 1.2.810.961 8945 434808 Methodi 00:00:00 00:00:[address] 3.430.2.7 0.2.7.3.698 spita .3.226126 084.8 l .8 2022-06-25 2022-06-25 Travel 1.2.840.1 1.2.969.308 1198 024942 Methodi 00:00:00 00:00:[address] 3.430.2.7 0.2.7.3.698 Ho spita .3.915975 084.8 l .8 2022-06-21 2022-06-21 Office Davin Walker 1.2.840.1 [id number] Methodi 13:00:00 14:47:04 Visit Louisa Escobar 80018.1.[address] 3.430.2.7 Hospit a .3.404572 l .8 2022-06-21 2022-06-21 Office Davin Walker 1.2.840.1 [id number] [id number] Methodi 13:00:00 14:47:04 Visit Louisa Escobar 67247.1.[address] 3.430.2.7 Hospit a .3.287261 l .8 2022-06-21 2022-06-21 Travel 1.2.840.1 1.2.301.917 5678 939970 Methodi 00:00:00 00:00:[address] 3.430.2.7 0.2.7.3.698 Ho spita .3.662426 084.8 l .8 2022-06-21 2022-06-21 Travel 1.2.840.1 1.2.655.136 0714 856226 Methodi 00:00:00 00:00:[address] 3.430.2.7 0.2.7.3.698 Ho spita .3.190421 084.8 l .8 2022-06-14 2022-06-14 Office Aaron, 1.2.840.1 [id number] 537947 2626 Methodi 13:10:00 13:23:28 Visit Davin 06149.1.[address] 3.430.2.7 Hospit a .3.477037 l .8 2022-06-14 2022-06-[address] [facility], 1.2.840.1 [id number] 954303 4530 Methodi 13:10:00 13:23:28 Visit Davin 97329.1.[address] 3.430.2.7 Hospit a .3.971053 l .8 2022-06-14 2022-06-14 Travel 1.2.840.1 1.2.107.140 4604 256052 Methodi 00:00:00 00:00:[address] 3.430.2.7 0.2.7.3.698 Ho spita .3.787819 084.8 l .8 2022-06-14 2022-06-14 Travel 1.2.840.1 1.2.582.369 0307 887650 Methodi 00:00:00 00:00:[address] 3.430.2.7 0.2.7.3.698 Ho spita .3.370989 084.8 l .8 2022-05-24 2022-05-[address] [facility], 1.2.840.1 257327846 509010 4755 Methodi 14:00:00 14:54:06 Visit Davin 86118.1.[address] 3.430.2.7 Hospit a .3.734220 l .8 2022-05-24 2022-05-[address] [facility], 1.2.840.1 [id number] 469344 2224 Methodi 14:00:00 14:54:06 Visit Davin 52649.1.[address] 3.430.2.7 Hospit a .3.590721 l .8 2022-05-24 2022-05-24 Travel 1.2.840.1 1.2.005.738 2617 194187 Methodi 00:00:00 00:00:[address] 3.430.2.7 0.2.7.3.698 Ho spita .3.700808 084.8 l .8 2022-05-24 2022-05-24 Travel 1.2.840.1 1.2.798.375 8358 041837 Methodi 00:00:00 00:00:[address] 3.430.2.7 0.2.7.3.698 Ho spita .3.743188 084.8 l .8 2022-05-08 2022-05-14 [facility] Kenneth Helms 1.2.840.1 [id number] Methodi 11:57:00 14:24:00 Encounter Noman Brewer 53624.1.1 930 Ron Pizano 3.430.2.7 Hospita .3.133142 l .8 2022-05-08 2022-05-14 [facility] Kenneth Helms 1.2.840.1 [id number] Methodi 11:57:00 14:24:00 Encounter Noman Brewer 91870.1.1 930 Ron Pizano Ding 3.430.2.7 Hospita .3.722892 l .8 2022-05-14 2022-05-14 Documentat [facility], 1.2.840.1 [id number] [id number] Methodi 00:00:00 00:00:00 ion Alyse 27748.1.[address] 3.430.2.7 Hospit a .3.243393 l .8 2022-05-14 2022-05-14 Documentat [facility], 1.2.840.1 192875180 [id number] Methodi 00:00:00 00:00:[address]lyse 64396.1.[address] 3.430.2.7 Hospit a .3.286366 l .8 2022-05-10 2022-05-[address] [facility], 1.2.840.1 315442414 544187 9718 Methodi 11:00:00 13:05:[address] 3.430.2.7 Hospit a .3.062474 l .8 2022-05-10 2022-05-10 Surgery Nurko, 1.2.840.1 267818643 946372 6930 Methodi 11:00:00 13:05:[address] 3.430.2.7 Hospit a .3.478177 l .8 2022-05-10 2022-05-10 Anesthesia Beulah Barcenas 1.2.840.1 422056 023 7135403732 Methodi 11:12:00 12:34:00 Event MatheusMari oliva 07713.1.[address] 3.430.2.7 Hospit a .3.822615 l .8 2022-05-10 2022-05-10 Anesthesia Beulah Barcenas 1.2.840.1 294102 023 7833410119 Methodi 11:12:00 12:34:00 Event Matheuspj Mari Ann 07887.1.[address] 3.430.2.7 Hospit a .3.614966 l .8 2022-04-24 2022-04-24 Patient Carroll, 1.2.840.1 [id number] 78021 18203 Methodi 00:00:00 00:00:00 Outreach Cheri 17336.1.1 432 s t 3.430.2.7 Hospit a .3.338429 l .8 2022-04-24 2022-04-24 Patient Carroll, 1.2.840.1 [id number] 88315 28450 Methodi 00:00:00 00:00:00 Outreach Cheri 12132.1.1 432 s t 3.430.2.7 Hospit a .3.734581 l .8 2022-04-12 2022-04-19 [facility] .1 [id number] [id number] Methodi 15:27:00 19:06:00 Encounter Hector Orozco 02730.1.[address] PravinFahad 3.430.2.7 Hospita Uriel Pastor .3.857707 July Mancera .8 2022-04-12 2022-04-19 [facility] 1.2.840 .1 668311297 [id number] Methodi 15:27:00 19:06:00 Encounter Hector Orozco 31613.1.[address] Fahad Costello 3.430.2.7 Hospita Radha Pastorruchi .3.083246 l MyeshaericericJuly cancino .8 2022-04-19 2022-04-19 Anesthesia Tu, 1.2.840.1 635135433 051 3082282 Methodi 14:04:00 14:26:00 Event Jesus 31282.1.[address] Thi 3.430.2.7 Hospit a .3.317247 l .8 2022-04-19 2022-04-19 Anesthesia , 1.2.840.1 621223729 013 3395050 Methodi 14:04:00 14:26:00 Event Jesus 53112.1.[address] Thi 3.430.2.7 Hospit a .3.979987 l .8 2022-03-08 2022-03-14 Hospital ArnulfoLaxmi 1.2.840.1 10 [id number] Methodi 22:25:00 20:26:00 [place] 57958.1.1 934 [facility] Chacha Carbajal .3.565975 l Noman Brewer .8 2022-03-08 2022-03-14 Hospital Arnulfo Laxmi Raven 1.2.840.1 10 [id number] Methodi 22:25:00 20:26:00 [place] 14046.1.1 934 [facility].430.2.7 [facility] Raven .3.587063 l Noman Brewer .8 2022-03-12 2022-03-12 Surgery Nurko, 1.2.840.1 [id number] 276701 0596 Methodi 14:03:00 15:48:[address] 3.430.2.7 Hospit a .3.051121 l .8 2022-03-12 2022-03-12 Surgery Nurko, 1.2.840.1 [id number] 240531 8407 Methodi 14:03:00 15:48:[address] 3.430.2.7 Hospit a .3.755383 l .8 2022-03-12 2022-03-12 Anesthesia Urrutia, 1.2.840.1 606067882 693 6910696 Methodi 14:23:00 15:33:00 Event Mary Estevez 67490.1.[address] 3.430.2.7 Hospit a .3.317627 l .8 2022-03-12 2022-03-12 Anesthesia Urrutia, 1.2.840.1 408585977 219 [id number] Methodi 14:23:00 15:33:00 Event Mary Estevez 22095.1.[address] 3.430.2.7 Hospit a .3.061423 l .8 2022-03-08 2022-03-08 Travel 1.2.840.1 1.2.556.723 3756 427248 Methodi 00:00:00 00:00:[address] 3.430.2.7 0.2.7.3.698 Ho spita .3.546449 084.8 l .8 2022-03-08 2022-03-08 Travel 1.2.840.1 1.2.977.330 5920 104378 Methodi 00:00:00 00:00:[address] 3.430.2.7 0.2.7.3.698 Ho spita .3.739271 084.8 l .8 2022-01-01 2022-01-05 Inpatient EM Lance [facility] [id number] [facility] 16:59:00 12:20:00 Ab Doyle [facility] 2021-12-10 2021-12-14 [facility] Wilberto Carbajal 1.2.840.1 104 [id number] Methodi 21:52:00 15:50:00 Encounter Ale Farias Amod 45616.1.1 117 René Melendrez 3.430.2.7 Hospita .3.130646 l .8 2021-12-10 2021-12-14 [facility] Wilberto Carbajal 1.2.840.1 104 [id number] [id number] Methodi 21:52:00 15:50:00 Encounter Ale Farias Amod 35186.1.1 117 René Melendrez 3.430.2.7 Hospita .3.304622 l .8 2021-12-10 2021-12-10 Travel 1.2.840.1 1.2.348.460 8804 071333 Methodi 00:00:00 00:00:[address] 3.430.2.7 0.2.7.3.698 Ho spita .3.411527 084.8 l .8 2021-12-10 2021-12-10 Travel 1.2.840.1 1.2.818.629 0316 211778 Methodi 00:00:00 00:00:[address] 3.430.2.7 0.2.7.3.698 Ho spita .3.557143 084.8 l .8 2021-11-08 2021-11-08 Emergency Mitzi, 1.2.840.1 [id number] 2100 530135 Methodi 10:26:00 14:01:[address] 3.430.2.7 Hospit a .3.963651 l .8 2021-10-10 2021-10-10 Emergency Fahad Anna 1.2.840.1 [id number] Methodi 20:57:00 23:49:[address] 3.430.2.7 Hospit a .3.547084 l .8 2021-10-07 2021-10-07 Emergency EM Janina, [facility] [id number] [facility] 06:46:00 07:39:00 Jerry 58 [facility] 2021-09-30 2021-09-30 Emergency EM Nataly [facility] [id number] [facility] 18:18:00 19:46:00 Margo 39 [facility] 2021-08-15 2021-08-15 Outpatient GC_HGMDA_Go PRIV PRIV 110 [id number] [facility] 09:28:00 09:28:00 nzalez_J [id number] Medic al 2021-08-13 2021-08-13 Outpatient GC_HGMDA_Go PRIV PRIV 110 [id number] [facility] 12:25:00 12:25:00 nzalez_J [id number] Medic al 2021-08-06 2021-08-06 Emergency EM Cresencio, [facility] [id number] [facility] 15:06:00 18:56:00 Brennan 32 [facility] 2021-07-18 2021-07-[address] [facility] [id number] [facility] [address] 00:00:00 00:00:00 [facility] 2021-06-29 2021-06-29 Office 0 Vielka [id number] 13:30:00 16:29:55 Visit 06 2021-06-29 2021-06-29 Outpatient Berta Schwab [facility] 2343 [id number] [place] 13:13:00 13:13:00 Vielka [facility] [id number] [facility] 2021-03-22 2021-03-22 Travel 1.2.840.1 1.2.460.466 9299 812567 Methodi 00:00:00 00:00:00 79864.1.1 350.1.13.43 887 3.430.2.7 0.2.7.3.698 Ho spita .3.201110 084.8 l .8 2021-02-02 2021-02-02 Emergency [place] [facility] [id number] [place] 14:47:00 17:56:00 Shazia burns 2021-02-02 2021-02-02 Emergency KERMIT, [facility] [id number] [place] 15:08:10 15:31:04 [facility] 2021-01-02 2021-01-03 Emergency Juan, Molly.2.840.1 [id number] 2 [id number] Methodi 18:54:00 01:22:00 Donaldo Ramos 34226.1.[address] 3.430.2.7 Hospit a .3.580703 l .8 2020-12-24 2020-12-24 Emergency JAELYN Roa [facility] [id number] 30 [facility] 12:04:00 17:13:00 [facility] Results Test Description Test Time Test Comments Results Result Comments Source BASIC METABOLIC PANEL (NA, K, CL, CO2, GLUCOSE, BUN, 2022-08 03:38:19 CREATININE, CA) Test Item Value Reference Range Interpretation Comme nts NA (test code = 8609189499) 137 mmol/L 135-145 K (test code = 7401370937) 5.9 mmol/L 3.5-5.0 H CL (test code = 4452433498) 103 mmol/L 98-108 CO2 TOTAL (test code = 1794845671) 25 mmol/L 23-31 AGAP (test code = 5421634911) 9 2-16 BUN (test code = 5668874568) 23 mg/dL 7-23 GLUCOSE (test code = 8128564728) 235 mg/dL 70-110 H CREATININE (test code = 1.14 mg/dL 0.60-1.25 0754798545) CALCIUM (test code = 0022689520) 8.8 mg/dL 8.6-10.6 eGFR (test code = 8551514010) 66.7 mL/min/1.73m2 MOE (test code = MOE) [...] tests). Lab Interpretation (test code = Abnormal 54533-5) [facility] 07[facility]30:03 Test Item Value Reference Range Interpretation Comments POCT GLU (test code = 2471438881) 175 mg/dL 70-110 H Lab Interpretation (test code = Abnormal 20003-5) [facility] (NA, K, CL, CO2, GLUCOSE, BUN, CREATININE, CA)2022-08-14 06:49:10 Test Item Value Reference Range Interpretation Comments NA (test code = 137 mmol/L 135-145 1919250629) K (test code = 4.8 mmol/L 3.5-5.0 4477584813) CL (test code = 106 mmol/L 98-108 3633181456) CO2 TOTAL (test code = 25 mmol/L 23-31 2163785984) AGAP (test code = 6 2-16 3249820160) BUN (test code = 35 mg/dL 7-23 H 6695958890) GLUCOSE (test code = 187 mg/dL 70-110 H 1190810640) CREATININE (test code = 1.19 mg/dL 0.60-1.25 6598372885) CALCIUM (test code = 8.5 mg/dL 8.6-10.6 L 8343891182) eGFR (test code = 63.5 mL/min/1.73m2 5212860247) MOE (test code = MOE) Association of [...] tests). Lab Interpretation Abnormal (test code = 40448-5) [facility] WITH [id number] 06:35:09 Test Item Value Reference Range Interpretation Comments WBC (test code = 6.59 See_Comment [Automated 0670-2) message] The sy stem which generated this result transmitted reference range : 4.20 - 10.70 10*3/?L. The reference range was not used to interpret this result as normal/abnormal . RBC (test code = 3.10 See_Comment L [Automated 391-1) message] The sy stem which generated this [...] (test code = 58.6 fL 38.5-51.6 H 53141-9) RDW-CV (test code = 17.5 % 12.1-15.4 H 788-0) PLT (test code = 328 See_Comment [Automated 777-3) message] The sy stem which generated this result transmitted reference range : 150 - 328 10*3/ ?L. The reference r maggi was not used to interpret this result as normal/abnormal . MPV (test code = 10.1 fL 9.8-13.0 42235-0) NRBC/100 WBC (test 0.0 See_Comment [Automat ed code = 0903207841) message] The system which generated this result transmitted reference range : 0.0 - 10.0 /100 WBCs. The refer ence range was not u sed to interpret th is result as normal/abnormal . NRBC x10^3 (test code See_Comment [Auto mated = 5318815105) message] The s ystem which generated this result transmitted reference range : 10*3/?L. The reference range was not used to interpret this result as normal/abnormal . GRAN MAT (NEUT) % 63.9 % (test code = 770-8) IMM GRAN % (test code 0.50 % = 7797595626) LYMPH % (test code = 24.9 % 736-9) MONO % (test code = 7.4 % 5905-5) EOS % (test code = 2.4 % 713-8) BASO % (test code = 0.9 % 706-2) GRAN MAT x10^3(ANC) 4.21 10*3/uL 1.99-6.95 (test code = 5589692775) IMM GRAN x10^3 (test 0.03 10*3/uL 0.00-0.06 code = 7912157431) LYMPH x10^3 (test code 1.64 10*3/uL 1.09-3.23 = 731-0) MONO x10^3 (test code 0.49 10*3/uL 0.36-1.02 = 742-7) EOS x10^3 (test code = 0.16 10*3/uL 0.06-0.53 711-2) BASO x10^3 (test code 0.06 10*3/uL 0.01-0.09 = 704-7) Lab Interpretation Abnormal (test code = 59012-2) [facility] 12 [id number] 20:13:46 Test Item Value Reference Range Interpretation Comments Ventricular rate (test 79 code = 253) Atrial rate (test code 79 = 255) RI interval (test code 150 = 266) QRSD [...] Lateral leads-QT has lengthened-Electronica lly Signed By Davis BAILEY, Jaspreet ([id number]) on 08/08/2022 3:13:43 PM [facility] 12 [id number] 20:13:46 Test Item Value Reference Range Interpretation Comments Ventricular rate (test 79 code = 253) Atrial rate (test code 79 = 255) RI interval (test code 150 = 266) QRSD [...] Cannon MD ([id number]) on 08/08/2022 3:13:[address]2023-04-20 20:13:46 Test Item Value Reference Range Interpretation Comments Ventricular rate (test 79 code = 253) Atrial rate (test code 79 = 255) RI interval (test code 150 = 266) QRSD [...] Cannon MD ([id number]) on 08/08/2022 3:13:[address]2023-04-20 20:13:46 Test Item Value Reference Range Interpretation Comments Ventricular rate (test 79 code = 253) Atrial rate (test code 79 = 255) RI interval (test code 150 = 266) QRSD [...] Cannon MD ([id number]) on 08/08/2022 3:13:[address]2023-04-20 20:13:46 Test Item Value Reference Range Interpretation Comments Ventricular rate (test 79 code = 253) Atrial rate (test code 79 = 255) RI interval (test code 150 = 266) QRSD [...] lengthened-Electronica lly Signed By Jaspreet Cannon MD ([id number]) on 08/08/2022 3:13:[address]2023-04-20 20:13:46 Test Item Value Reference Range Interpretation Comments Ventricular rate (test 79 code = 253) Atrial rate (test code 79 = 255) RI interval (test code 150 = 266) QRSD [...] lengthened-Electronica lly Signed By Jaspreet Cannon MD ([id number]) on 08/08/2022 3:13:[address]2023-04-20 20:13:46 Test Item Value Reference Range Interpretation Comments Ventricular rate (test 79 code = 253) Atrial rate (test code 79 = 255) RI interval (test code 150 = 266) QRSD [...] Cannon MD ([id number]) on 08/08/2022 3:13:[address]2023-04-20 20:13:46 Test Item Value Reference Range Interpretation Comments Ventricular rate (test 79 code = 253) Atrial rate (test code 79 = 255) RI interval (test code 150 = 266) QRSD [...] Cannon MD ([id number]) on 08/08/2022 3:13:[address]2023-04-20 20:13:46 Test Item Value Reference Range Interpretation Comments Ventricular rate (test 79 code = 253) Atrial rate (test code 79 = 255) RI interval (test code 150 = 266) QRSD [...] lengthened-Electronica lly Signed By Jaspreet Cannon MD ([id number]) on 08/08/2022 3:13:43 PM [facility]2023-04-20 05:30:00 Test Item Value Reference Range Interpretation Comments AFB culture No growth Specimen isolate (test after 6 weeks InformationSp ecimen code = 543-9) of Source: Tissue Specimen incubation. Site: Leg: Left Lower Extremity - [facility]2023-04-20 05:30:00 Test Item Value Reference Range Interpretation Comments AFB culture No growth Specimen isolate (test after 6 weeks InformationSp ecimen code = 543-9) of Source: Tissue Specimen incubation. Site: Leg: Left [facility] Extremity [facility]2023-04-20 05:30:00 Test Item Value Reference Range Interpretation Comments AFB culture No growth Specimen isolate (test after 6 weeks InformationSp ecimen code = 543-9) of Source: Tissue Specimen incubation. Site: Leg: Left [facility] Extremity [facility]2023-04-20 05:30:00 Test Item Value Reference Range Interpretation Comments AFB culture No growth Specimen isolate (test after 6 weeks InformationSp ecimen code = 543-9) of Source: Tissue Specimen incubation. Site: Leg: Left Lower Extremity [facility]2023-04-20 05:30:00 Test Item Value Reference Range Interpretation Comments AFB culture No growth Specimen isolate (test after 6 weeks InformationSp ecimen code = 543-9) of Source: Tissue Specimen incubation. Site: Leg: Left Lower Extremity - [facility]2023-04-20 05:30:00 Test Item Value Reference Range Interpretation Comments AFB culture No growth Specimen isolate (test after 6 weeks InformationSp ecimen code = 543-9) of Source: Tissue Specimen incubation. Site: Leg: Left [facility] Extremity [facility]2023-04-20 05:30:00 Test Item Value Reference Range Interpretation Comments AFB culture No growth Specimen isolate (test after 6 weeks InformationSp ecimen code = 543-9) of Source: Tissue Specimen incubation. Site: Leg: Left Lower Extremity - [facility] [id number] 05:30:00 Test Item Value Reference Range Interpretation Comments AFB culture No growth Specimen isolate (test after 6 weeks InformationSp ecimen code = 543-9) of Source: Tissue Specimen incubation. Site: Leg: Left Lower Extremity - [facility] [id number] 05:30:00 Test Item Value Reference Range Interpretation Comments AFB culture No growth Specimen isolate (test after 6 weeks InformationSp ecimen code = 543-9) of Source: Tissue Specimen incubation. Site: Leg: [facility] 22:28:25 Test Item Value Reference Range Interpretation Comments POCT GLU (test code = 3095462603) 116 mg/dL 70-110 H Lab Interpretation (test code = Abnormal 58350-8) [facility] GLUCOSE (AUTOMATED)2022-07-31 17:14:36 Test Item Value Reference Range Interpretation Comments POCT GLU (test code = 2006201119) 136 mg/dL 70-110 H Lab Interpretation (test code = Abnormal 24805-7) [facility] GLUCOSE (AUTOMATED)2022-07-31 01:47:10 Test Item Value Reference Range Interpretation Comments POCT GLU (test code = 7449177896) 141 mg/dL 70-110 H Lab Interpretation (test code = Abnormal 21381-4) [facility] GLUCOSE (AUTOMATED)2022-07-30 23:18:09 Test Item Value Reference Range Interpretation Comments POCT GLU (test code = 3236839353) 140 mg/dL 70-110 H Lab Interpretation (test code = Abnormal 60523-3) [facility] GLUCOSE (AUTOMATED)2022-07-30 18:43:38 Test Item Value Reference Range Interpretation Comments POCT GLU (test code = 9676605494) 165 mg/dL 70-110 H Lab Interpretation (test code = Abnormal 03533-9) [facility] GLUCOSE (AUTOMATED)2022-07-30 14:19:36 Test Item Value Reference Range Interpretation Comments POCT GLU (test code = 9734657897) 90 mg/dL 70-110 Lab Interpretation (test code = Normal 79318-0) [facility] GLUCOSE (AUTOMATED)2022-07-30 01:37:57 Test Item Value Reference Range Interpretation Comments POCT GLU (test code = 4398282682) 100 mg/dL 70-110 Lab Interpretation (test code = Normal 25569-5) [facility] GLUCOSE (AUTOMATED)2022-07-29 22:44:33 Test Item Value Reference Range Interpretation Comments POCT GLU (test code = 7422638633) 113 mg/dL 70-110 H Lab Interpretation (test code = Abnormal 51463-4) [facility] GLUCOSE (AUTOMATED)2022-07-29 18:36:00 Test Item Value Reference Range Interpretation Comments POCT GLU (test code = 7627247812) 108 mg/dL 70-110 Lab Interpretation (test code = Normal 25681-6) [facility] GLUCOSE (AUTOMATED)2022-07-29 13:47:37 Test Item Value Reference Range Interpretation Comments POCT GLU (test code = 3056737715) 91 mg/dL 70-110 Lab Interpretation (test code = Normal 54225-3) [facility] GLUCOSE (AUTOMATED)2022-07-29 01:19:16 Test Item Value Reference Range Interpretation Comments POCT GLU (test code = 3481587569) 143 mg/dL 70-110 H Lab Interpretation (test code = Abnormal 63390-7) [facility] GLUCOSE (AUTOMATED)2022-07-28 21:10:26 Test Item Value Reference Range Interpretation Comments POCT GLU (test code = 7252461815) 148 mg/dL 70-110 H Lab Interpretation (test code = Abnormal 30753-6) [facility] GLUCOSE (AUTOMATED)2022-07-28 17:13:13 Test Item Value Reference Range Interpretation Comments POCT GLU (test code = 8982362583) 199 mg/dL 70-110 H Lab Interpretation (test code = Abnormal 79947-0) [facility] GLUCOSE (AUTOMATED)2022-07-28 12:53:47 Test Item Value Reference Range Interpretation Comments POCT GLU (test code = 1313402625) 113 mg/dL 70-110 H Lab Interpretation (test code = Abnormal 13460-7) [facility] GLUCOSE (AUTOMATED)2022-07-28 08:02:41 Test Item Value Reference Range Interpretation Comments POCT GLU (test code = 8326922750) 126 mg/dL 70-110 H Lab Interpretation (test code = Abnormal 64979-8) [facility]2023-04-06 05:40:00 Test Item Value Reference Range Interpretation Comments Fungus culture No growth Specimen isolate (test after 4 weeks InformationSp ecimen code = 580-1) of Source: Tissue Specimen incubation. Site: Leg: Left Lower Extremity - [facility]2023-04-06 05:40:00 Test Item Value Reference Range Interpretation Comments Fungus culture No growth Specimen isolate (test after 4 weeks InformationSp ecimen code = 580-1) of Source: Tissue Specimen incubation. Site: Leg: Left Lower Extremity - [facility]2023-04-06 05:40:00 Test Item Value Reference Range Interpretation Comments Fungus culture No growth Specimen isolate (test after 4 weeks InformationSp ecimen code = 580-1) of Source: Tissue Specimen incubation. Site: Leg: Left Lower Extremity - [facility]2023-04-06 05:40:00 Test Item Value Reference Range Interpretation Comments Fungus culture No growth Specimen isolate (test after 4 weeks InformationSp ecimen code = 580-1) of Source: Tissue Specimen incubation. Site: Leg: Left Lower Extremity - [facility]2023-04-06 05:40:00 Test Item Value Reference Range Interpretation Comments Fungus culture No growth Specimen isolate (test after 4 weeks InformationSp ecimen code = 580-1) of Source: Tissue Specimen incubation. Site: Leg: Left Lower Extremity - [facility]2023-04-06 05:40:00 Test Item Value Reference Range Interpretation Comments Fungus culture No growth Specimen isolate (test after 4 weeks InformationSp ecimen code = 580-1) of Source: Tissue Specimen incubation. Site: Leg: Left Lower Extremity - [facility]2023-04-06 05:40:00 Test Item Value Reference Range Interpretation Comments Fungus culture No growth Specimen isolate (test after 4 weeks InformationSp ecimen code = 580-1) of Source: Tissue Specimen incubation. Site: Leg: Left Lower Extremity - [facility]2023-04-06 05:40:00 Test Item Value Reference Range Interpretation Comments Fungus culture No growth Specimen isolate (test after 4 weeks InformationSp ecimen code = 580-1) of Source: Tissue Specimen incubation. Site: Leg: [facility]ity [facility] [id number] 05:40:00 Test Item Value Reference Range Interpretation Comments Fungus culture No growth Specimen isolate (test after 4 weeks InformationSp ecimen code = 580-1) of Source: Tissue Specimen incubation. Site: Leg: Left Lower Extremity - [facility] Met[facility] Panel (67014)2022-07-19 03:26:53 Test Item Value Reference Range Interpretation Comments NA (test code = 140 mmol/L 135-145 2992635192) K (test code = 5.3 mmol/L 3.5-5.0 H 7308800921) CL (test code = 101 mmol/L 98-108 9222381714) CO2 TOTAL (test code = 27 mmol/L 23-31 5746448469) AGAP (test code = 12 2-16 7660307556) BUN (test code = 30 mg/dL 7-23 H 4457716405) GLUCOSE (test code = 189 mg/dL 70-110 H 9793315888) CREATININE (test code = 1.24 mg/dL 0.60-1.25 6145581870) TOTAL BILI (test code = 0.4 mg/dL 0.1-1.4 4580848866) CALCIUM (test code = 9.3 mg/dL 8.6-10.6 9604444180) T PROTEIN (test code = 8.0 g/dL 6.3-8.2 5686582800) ALBUMIN (test code = 4.1 g/dL 3.5-5.0 2505666605) ALK PHOS (test code = 107 U/L 34-122 2719676316) ALTv (test code = 43 U/L 5-50 1742-6) AST(SGOT) (test code = 38 U/L 13-40 7765490209) eGFR (test code = 60.5 mL/min/1.73m2 2765327494) MOE (test code = MOE) Association of [...] tests). Lab Interpretation Abnormal (test code = 65835-7) [facility] with [id number] 03:23:09 Test Item Value Reference Range Interpretation Comments WBC (test code = 6.48 See_Comment [Automated 9292-2) message] The sy stem which generated this result transmitted reference range : 4.20 - 10.70 10*3/?L. The reference range was not used to interpret this result as normal/abnormal . RBC (test code = 4.08 See_Comment L [Automated 330-8) message] The sy stem which generated this [...] RDW-SD (test code = 49.0 fL 38.5-51.6 88414-5) RDW-CV (test code = 15.0 % 12.1-15.4 788-0) PLT (test code = 542 See_Comment H [Automated 777-3) message] The sy stem which generated this result transmitted reference range : 150 - 328 10*3/ ?L. The reference r maggi was not used to interpret this result as normal/abnormal . MPV (test code = 9.6 fL 9.8-13.0 L 91974-4) NRBC/100 WBC (test 0.0 See_Comment [Automat ed code = 6428304992) message] The system which generated this result transmitted reference range : 0.0 - 10.0 /100 WBCs. The refer ence range was not u sed to interpret th is result as normal/abnormal . NRBC x10^3 (test code See_Comment [Auto mated = 2735015757) message] The s ystem which generated this result transmitted reference range : 10*3/?L. The reference range was not used to interpret this result as normal/abnormal . GRAN MAT (NEUT) % 60.7 % (test code = 770-8) IMM GRAN % (test code 0.50 % = 7376945872) LYMPH % (test code = 28.2 % 736-9) MONO % (test code = 6.9 % 5905-5) EOS % (test code = 2.5 % 713-8) BASO % (test code = 1.2 % 706-2) GRAN MAT x10^3(ANC) 3.93 10*3/uL 1.99-6.95 (test code = 9643607223) IMM GRAN x10^3 (test 0.03 10*3/uL 0.00-0.06 code = 3755898215) LYMPH x10^3 (test code 1.83 10*3/uL 1.09-3.23 = 731-0) MONO x10^3 (test code 0.45 10*3/uL 0.36-1.02 = 742-7) EOS x10^3 (test code = 0.16 10*3/uL 0.06-0.53 711-2) BASO x10^3 (test code 0.08 10*3/uL 0.01-0.09 = 704-7) Lab Interpretation Abnormal (test code = 20757-0) [facility] [id number] 16:22:00 Test Item Value Reference Range Interpretation Comments POC glucose (test code = 245 mg/dL 65-100 H Ope rator Name: Marilin 10152-5) GarzaDevice ID: [id number] Lab Interpretation (test Abnormal code = 24542-7) [facility]2023-03-15 16:22:00 Test Item Value Reference Range Interpretation Comments POC glucose (test code = 245 mg/dL 65-100 H Ope rator Name: Marilin 64690-9) GarzaDevice ID: [id number] Lab Interpretation (test Abnormal code = 15401-2) [facility]2023-03-15 16:22:00 Test Item Value Reference Range Interpretation Comments POC glucose (test code = 245 mg/dL 65-100 H Ope rator Name: Marilin 36584-4) GarzaDevice ID: [id number] Lab Interpretation (test Abnormal code = 97287-1) [facility]2023-03-15 16:22:00 Test Item Value Reference Range Interpretation Comments POC glucose (test code = 245 mg/dL 65-100 H Ope rator Name: Marilin 92331-3) GarzaDevice ID: [id number] Lab Interpretation (test Abnormal code = 57495-5) [facility]2023-03-15 16:22:00 Test Item Value Reference Range Interpretation Comments POC glucose (test code = 245 mg/dL 65-100 H Ope rator Name: Marilin 01991-2) GarzaDevice ID: [id number] Lab Interpretation (test Abnormal code = 01816-3) [facility]2023-03-15 16:22:00 Test Item Value Reference Range Interpretation Comments POC glucose (test code = 245 mg/dL 65-100 H Ope rator Name: Marilin 33610-3) GarzaDevice ID: [id number] Lab Interpretation (test Abnormal code = 96236-0) [facility] [id number] 16:22:00 Test Item Value Reference Range Interpretation Comments POC glucose (test code = 245 mg/dL 65-100 H Ope rator Name: Marilin 58375-3) GarzaDevice ID: [id number] Lab Interpretation (test Abnormal code = 30053-9) [facility] [id number] 16:22:00 Test Item Value Reference Range Interpretation Comments POC glucose (test code = 245 mg/dL 65-100 H Ope rator Name: Marilin 38899-7) GarzaDevice ID: [id number] Lab Interpretation (test Abnormal code = 40122-5) [facility]2023-03-15 16:22:00 Test Item Value Reference Range Interpretation Comments POC glucose (test code = 245 mg/dL 65-100 H Ope rator Name: Marilin 43989-9) GarzaDevice ID: [id number] Lab Interpretation (test Abnormal code = 14861-6) [facility] [id number] 19:17:00 Test Item Value Reference Range Interpretation Comments IMP PCR (test NOT DETECTED Specimen Infor mationSpecimen code = Source: [facility] Site: 11714-2) Tissue [id number] OXA-48 PCR NOT DETECTED (test code = 8006) [facility] [id number] 19:17:00 Test Item Value Reference Range Interpretation Comments IMP PCR (test NOT DETECTED Specimen Infor mationSpecimen code = Source: [facility] Site: 94713-8) Tissue [id number] OXA-48 PCR NOT DETECTED (test code = 8006) [facility] [id number] 19:17:00 Test Item Value Reference Range Interpretation Comments IMP PCR (test NOT DETECTED Specimen Infor mationSpecimen code = Source: [facility] Site: 53141-2) Tissue [id number] OXA-48 PCR NOT DETECTED (test code = 8006) [facility] [id number] 19:17:00 Test Item Value Reference Range Interpretation Comments IMP PCR (test NOT DETECTED Specimen Infor mationSpecimen code = Source: [facility] Site: 01600-3) Tissue [id number] 07 OXA-48 PCR NOT DETECTED (test code = 8006) [facility] [id number] 19:17:00 Test Item Value Reference Range Interpretation Comments IMP PCR (test NOT DETECTED Specimen Infor mationSpecimen code = Source: [facility] Site: [address] [place] [address]) Tissue [id number] 07 OXA-48 PCR NOT DETECTED (test code = 8006) [facility] [id number] 19:17:00 Test Item Value Reference Range Interpretation Comments IMP PCR (test NOT DETECTED Specimen Infor mationSpecimen code = Source: [facility] Site: [address] [place] [address]) Tissue [id number] 07 OXA-48 PCR NOT DETECTED (test code = 8006) [facility] [id number] 19:17:00 Test Item Value Reference Range Interpretation Comments IMP PCR (test NOT DETECTED Specimen Infor mationSpecimen code = Source: [facility] Site: [address] [place] [address]) Tissue [id number] 07 OXA-48 PCR NOT DETECTED (test code = 8006) [facility] [id number] 19:17:00 Test Item Value Reference Range Interpretation Comments IMP PCR (test NOT DETECTED Specimen Infor mationSpecimen code = Source: [facility] Site: [address] [place] [address]) Tissue [id number] 07 OXA-48 PCR NOT DETECTED (test code = 8006) [facility] [id number] 19:17:00 Test Item Value Reference Range Interpretation Comments IMP PCR (test NOT DETECTED Specimen Infor mationSpecimen code = Source: [facility] Site: [address] [place] [address]) Tissue [id number] 07 OXA-48 PCR NOT DETECTED (test code = 8006) [facility] [id number] 13:15:00 Test Item Value Reference Range Interpretation Comments Anaerobic No anaerobic Specimen culture isolate organisms InformationS pecimen (test code = isolated. Source: TissueS pecimen 77220-6) Site: Leg: Left Lower Extremity - [facility]2023-03-13 13:15:00 Test Item Value Reference Range Interpretation Comments Anaerobic No anaerobic Specimen culture isolate organisms InformationS pecimen (test code = isolated. Source: TissueS pecimen 98992-7) Site: Leg: Left Lower Extremity - [place] [id number] 13:15:00 Test Item Value Reference Range Interpretation Comments Anaerobic No anaerobic Specimen culture isolate organisms InformationS pecimen (test code = isolated. Source: TissueS pecimen 73754-5) Site: Leg: Left Lower Extremity - [place] [id number] 13:15:00 Test Item Value Reference Range Interpretation Comments Anaerobic No anaerobic Specimen culture isolate organisms InformationS pecimen (test code = isolated. Source: TissueS pecimen 74283-8) Site: Leg: Left Lower Extremity - [facility]2023-03-13 13:15:00 Test Item Value Reference Range Interpretation Comments Anaerobic No anaerobic Specimen culture isolate organisms InformationS pecimen (test code = isolated. Source: TissueS pecimen 97111-0) Site: Leg: Left Lower Extremity - [facility]2023-03-13 13:15:00 Test Item Value Reference Range Interpretation Comments Anaerobic No anaerobic Specimen culture isolate organisms InformationS pecimen (test code = isolated. Source: TissueS pecimen 31125-5) Site: Leg: Left Lower Extremity - [facility]2023-03-13 13:15:00 Test Item Value Reference Range Interpretation Comments Anaerobic No anaerobic Specimen culture isolate organisms InformationS pecimen (test code = isolated. Source: TissueS pecimen 96499-1) Site: Leg: Left Lower Extremity - [facility]2023-03-13 13:15:00 Test Item Value Reference Range Interpretation Comments Anaerobic No anaerobic Specimen culture isolate organisms InformationS pecimen (test code = isolated. Source: TissueS pecimen 79434-8) Site: Leg: Left Lower Extremity - [facility]2023-03-13 13:15:00 Test Item Value Reference Range Interpretation Comments Anaerobic No anaerobic Specimen culture isolate organisms InformationS nichol (test code = isolated. Source: [facility] 70016-7) Site: [id number] 14:49:00 Test Item Value Reference Range Interpretation Comments AFB stain No acid fast Specimen (test code = bacilli (AFB) InformationSpe cimen 676-7) seen. Source: [facility] Site: Leg: [facility] [id number] 14:49:00 Test Item Value Reference Range Interpretation Comments AFB stain No acid fast Specimen (test code = bacilli (AFB) InformationSpe cimen 676-7) seen. Source: [facility] Site: Leg: [facility] [id number] 14:49:00 Test Item Value Reference Range Interpretation Comments AFB stain No acid fast Specimen (test code = bacilli (AFB) InformationSpe cimen 676-7) seen. Source: [facility] Site: Leg: [facility] [id number] 14:49:00 Test Item Value Reference Range Interpretation Comments AFB stain No acid fast Specimen (test code = bacilli (AFB) InformationSpe cimen 676-7) seen. Source: [facility] Site: Leg: [facility] [id number] 14:49:00 Test Item Value Reference Range Interpretation Comments AFB stain No acid fast Specimen (test code = bacilli (AFB) InformationSpe cimen 676-7) seen. Source: [facility] Site: Leg: [facility] [id number] 14:49:00 Test Item Value Reference Range Interpretation Comments AFB stain No acid fast Specimen (test code = bacilli (AFB) InformationSpe cimen 676-7) seen. Source: [facility] Site: Leg: [facility] [id number] 14:49:00 Test Item Value Reference Range Interpretation Comments AFB stain No acid fast Specimen (test code = bacilli (AFB) InformationSpe cimen 676-7) seen. Source: [facility] Site: Leg: Left Lower Extremity - [facility] [id number] 14:49:00 Test Item Value Reference Range Interpretation Comments AFB stain No acid fast Specimen (test code = bacilli (AFB) InformationSpe cimen 676-7) seen. Source: [facility] Site: Leg: Left Lower Extremity - [facility] [id number] 14:49:00 Test Item Value Reference Range Interpretation Comments AFB stain No acid fast Specimen (test code = bacilli (AFB) InformationSpe cimen 676-7) seen. Source: [facility] Site: Leg: Left Lower Extremity - [facility] [id number] 18:08:00 Test Item Value Reference Range Interpretation Comments Fungus smear No fungi Specimen (test code = observed. [employer] Source: 1443) [facility] Site: Leg: Left Lower Extr emity - [facility] [id number] 18:08:00 Test Item Value Reference Range Interpretation Comments Fungus smear No fungi Specimen (test code = observed. [employer] Source: 1443) [facility] Site: Leg: Left Lower Extr emity - [facility] [id number] 18:08:00 Test Item Value Reference Range Interpretation Comments Fungus smear No fungi Specimen (test code = observed. [employer] Source: 1443) [facility] Site: Leg: Left Lower Extr emity - [facility] [id number] 18:08:00 Test Item Value Reference Range Interpretation Comments Fungus smear No fungi Specimen (test code = observed. [employer] Source: 1443) [facility] Site: Leg: Left Lower Extr emity - [facility] [id number] 18:08:00 Test Item Value Reference Range Interpretation Comments Fungus smear No fungi Specimen (test code = observed. [employer] Source: 1443) [facility] Site: Leg: Left Lower Extr emity - [facility] [id number] 18:08:00 Test Item Value Reference Range Interpretation Comments Fungus smear No fungi Specimen (test code = observed. [employer] Source: 1443) [facility] Site: Leg: Left Lower Extr emity - [facility] [id number] 18:08:00 Test Item Value Reference Range Interpretation Comments Fungus smear No fungi Specimen (test code = observed. InformationSpec imen Source: 1443) [facility] Site: Leg: Left Lower Extr emity - [facility] [id number] 18:08:00 Test Item Value Reference Range Interpretation Comments Fungus smear No fungi Specimen (test code = observed. InformationSpec imen Source: 1443) [facility] Site: Leg: Left Lower Extr emity - [facility] [id number] 18:08:00 Test Item Value Reference Range Interpretation Comments Fungus smear No fungi Specimen (test code = observed. InformationSpec imen Source: 1443) [facility] Site: Leg: Left Lower Extr emity - [facility] [id number] 17:14:00 Test Item Value Reference Range Interpretation Comments Gram stain Few Gram Specimen isolate (test negative rods InformationSp ecimen code = 1469) Source: [facility] Site: Leg: Left Lower Extremity - [facility] [id number] 17:14:00 Test Item Value Reference Range Interpretation Comments Gram stain Few Gram Specimen isolate (test negative rods InformationSp ecimen code = 1469) Source: [facility] Site: Leg: Left Lower Extremity - [facility] [id number] 17:14:00 Test Item Value Reference Range Interpretation Comments Gram stain Few Gram Specimen isolate (test negative rods InformationSp ecimen code = 1469) Source: [facility] Site: Leg: Left Lower Extremity - Cul ture [facility] [id number] 17:14:00 Test Item Value Reference Range Interpretation Comments Gram stain Few Gram Specimen isolate (test negative rods InformationSp ecimen code = 1469) Source: [facility] Site: Leg: Left Lower Extremity - [facility] [id number] 17:14:00 Test Item Value Reference Range Interpretation Comments Gram stain Few Gram Specimen isolate (test negative rods InformationSp ecimen code = 1469) Source: [facility] Site: Leg: Left Lower Extremity - [facility] [id number] 17:14:00 Test Item Value Reference Range Interpretation Comments Gram stain Few Gram Specimen isolate (test negative rods InformationSp ecimen code = 1469) Source: TissueS pecimen Site: Leg: Left Lower Extremity - [facility] [id number] 17:14:00 Test Item Value Reference Range Interpretation Comments Gram stain Few Gram Specimen isolate (test negative rods InformationSp ecimen code = 1469) Source: TissueS pecimen Site: Leg: Left Lower Extremity - [facility] [id number] 17:14:00 Test Item Value Reference Range Interpretation Comments Gram stain Few Gram Specimen isolate (test negative rods InformationSp ecimen code = 1469) Source: TissueS pecimen Site: Leg: Left Lower Extremity - [facility] [id number] 17:14:00 Test Item Value Reference Range Interpretation Comments Gram stain Few Gram Specimen isolate (test negative rods InformationSp ecimen code = 1469) Source: TissueS pecime Site: Leg: [facility] [id number] 22:46:05 Test Item Value Reference Range Interpretation Comments Case number (test code = [id number]) Surgical pathology See link below for report (test code = PDF Lab Report 2255) Result status (test code This is Final Report = [id number]) [address] [id number] 22:46:05 Test Item Value Reference Range Interpretation Comments Case number (test code = [id number]) Surgical pathology See link below for report (test code = PDF Lab Report 2255) Result status (test code This is Final Report = [id number]) [address] [id number] 22:46:05 Test Item Value Reference Range Interpretation Comments Case number (test code = [id number]) Surgical pathology See link below for report (test code = PDF Lab Report 2255) Result status (test code This is Final Report = [id number]) [address] [id number] 22:46:05 Test Item Value Reference Range Interpretation Comments Case number (test code = [id number]) Surgical pathology See link below for report (test code = PDF Lab Report 225) Result status (test code This is Final Report = [id number]) for [address] pathology [id number] 22:46:05 Test Item Value Reference Range Interpretation Comments Case number (test code = [id number]) Surgical pathology See link below for report (test code = PDF Lab Report 225) Result status (test code This is Final Report = [id number]) for [address] pathology [id number] 22:46:05 Test Item Value Reference Range Interpretation Comments Case number (test code = [id number]) Surgical pathology See link below for report (test code = PDF Lab Report 225) Result status (test code This is Final Report = [id number]) for [address] pathology [id number] 22:46:05 Test Item Value Reference Range Interpretation Comments Case number (test code = [id number]) Surgical pathology See link below for report (test code = PDF Lab Report 225) Result status (test code This is Final Report = [id number]) for [address] pathology [id number] 22:46:05 Test Item Value Reference Range Interpretation Comments Case number (test code = [id number]) Surgical pathology See link below for report (test code = PDF Lab Report 225) Result status (test code This is Final Report = [id number]) for [address] pathology [id number] 22:46:05 Test Item Value Reference Range Interpretation Comments Case number (test code = [id number]) Surgical pathology See link below for report (test code = PDF Lab Report 225) Result status (test code This is Final Report = [id number]) [address] Complete, (w Contrast, Strain and 3D if needed)2022-05-10 21:23:23 Test Item Value Reference Interpretation Comments Range Ao Root Diameter 3.34 cm (test code = 4695442935) AoV Area, Vmax (test 3.02 cm2 See_Comment [Autom ated code = 7886214342) message] The system which generated this result transmitted reference range : >=1.5. The reference range was not used to interpret this result as normal/abnormal . AoV Area, VTI (test 3.07 cm2 code = 2015917002) AoV Mean PG (test 4.26 mmHg code = 5527160663) AoV Peak PG (test 6.38 mmHg code = 4528069778) AoV Vmax (test code 1.42 m/s = 8931597664) AoV VTI (test code = 0.26 m 8520562579) BSA Rashid (test code 2.11 m2 = 0073254036) BSA (test code = 2.02 m2 1377794929) IVS,d (test code = 0.84 cm 0.6-8 0239794762) IVS/LVPW,2D (test 0.98 code = 5106700972) Left Atrium 3.49 cm Dimension Anterior (test code = 3669952858) LV,d (test code = 4.74 cm 8426263147) LV EF,2D (test code 64.34 % = 0489032357) LV,s (test code = 3.36 cm 1005306287) LVOT area (test code 3.53 cm2 = 5337929455) LVOT Diam,S (test 2.12 cm code = 0058076382) LVOT Vmax (test code 1.13 m/s = 5222791936) LVOT VTI (test code 0.21 m = 2272346442) LVPWD,d (test code = 0.85 cm 0.60-1.19 4967406330) MV E A ratio (test 0.86 code = 5545671167) AoV area i VTI BSA 1.52 cm2/m2 See_Comment [Automat ed Hidalgo (test code = message] The 5381903433) system which generated this result transmitted reference range : >=0.85. The reference range was not used to interpret this result as normal/abnormal . BMI (test code = 31.32 kg/m2 8718770828) E wave decelartion 89.56 See_Comment A [Automat ed time (test code = message] T he 1809886981) system which generated this result transmitted reference range : 200 msec. The reference range was not used to interpret this result as normal/abnormal . MV Peak A Quirino (test 0.88 m/s code = 1147820710) MV valve area p 1/2 8.47 cm2 method (test code = 0348974845) MV Peak E Quirino (test 0.75 m/s code = 4733077280) MV stenosis pressure 25.97 ms 1/2 time (test code = 2547521346) LVOT stroke volume 0.74 ml (test code = 8851687870) AV LVOT peak 4.69 mmHg gradient (test code = 7163039774) Ao Root Diameter 3.34 cm (test code = 0841766025) MV mean gradient 1.92 mmHg (test code = 1637722201) LV SYS VOL (test 46.16 ml 21-61 code = 3908241631) LV ANDERSON VOL (test 104.46 ml 62-150 code = 8932214956) LA area s A4C (test 17.60 cm2 code = 6920360718) LV SI Teich 2D (test 28.83 ml/m2 code = 8431941940) LV SV Teich 2D (test 58.30 ml code = 1676614194) LV Vol s Teich PSAX 46.16 ml (test code = 4290595719) LVOT CI (test code = 3.53 l/min/m2 7218376257) LVOT CO (test code = 7.14 l/min 3837547399) LVOT HR for LVOT CO 98.89 bpm (test code = 7044870894) LVOT SI (test code = 35.72 ml/m2 9081740801) MR peak grad (test 3.00 mmHg code = 2790638345) MV Vmax (test code = 0.87 m 3198287423) MV VTI Tips (test 0.14 m code = 1184395976) BSA Haycock (test 2.10 m2 code = 8455669244) AoV Vmn (test code = 0.97 m/s 1423136799) IVS s 2D (test code 1.17 cm = 0787179280) LV FS Teich 2D (test 29.09 code = 6891843447) MV AE ratio (test 1.17 code = 1173400778) LV FS Cube 2D (test 29.09 code = 4979126427) LVOT Vmn (test code 0.75 = 1927373349) Pt Size (test code = 170.18 9289243685) Pt Wt (test code = 90.72 1705617471) Aov area Vmn (test 3.05 cm2 code = 2891781560) LVOT mean grad (test 2.57 mmHg code = 0694618999) 85 of MPHR (test 140.25 code = 2103544863) AoV area I VMN bsa 1.51 cm2/m2 (test code = 6693208418) Calc MPHR (test code 165.01 bpm = 6834256301) IVS pct thck PLAX 39.76 % (test code = 8075308116) LV SI Cube 2D (test 33.91 ml/m2 code = 5292419318) LV SV Cube 2D (test 68.57 ml code = 2184587730) LV vol d cube 2D 106.56 ml (test code = 4046051367) LV vol s cube 2D 38.00 ml (test code = 5446792419) LVPW pct thck PLAX 35.24 % (test code = 2806267064) LVPW s PLAX (test 1.16 cm code = 2423908459) MV Decel slope (test 8.38 m/s2 code = 0271662837) Pred Exer Dur R1 9.48 (test code = 2889126727) Pred METS R1 (test 9.75 code = 4268371321) LA Vol MOD A4C (test 46.56 ml code = 9682204594) Velocity Ratio 0.80 m/s (V1/V2) (test code = 4689) EF (test code = 56 % 9164984343) E/A ratio (test code 0.85 = 7761406022) LVOT VTI (CM) (test 21.00 cm code = 8450645578) MOE (test code = MOE) Left Ventricle: [...] normal. Lab Interpretation Abnormal (test code = 72130-3) [facility] (w Contrast, Strain and 3D if needed)2022-05-10 21:23:23 Test Item Value Reference Interpretation Comments Range Ao Root Diameter 3.34 cm (test code = 9416158174) AoV Area, Vmax (test 3.02 cm2 See_Comment [Autom ated code = 9045790730) message] The system which generated this result transmitted reference range : >=1.5. The reference range was not used to interpret this result as normal/abnormal . AoV Area, VTI (test 3.07 cm2 code = 6024648486) AoV Mean PG (test 4.26 mmHg code = 6660062909) AoV Peak PG (test 6.38 mmHg code = 1200321546) AoV Vmax (test code 1.42 m/s = 9475878946) AoV VTI (test code = 0.26 m 2585889915) BSA Rashid (test code 2.11 m2 = 0970680108) BSA (test code = 2.02 m2 0330153705) IVS,d (test code = 0.84 cm 0.6-1 1137186852) IVS/LVPW,2D (test 0.98 code = 6479812403) Left Atrium 3.49 cm Dimension Anterior (test code = 5442890744) LV,d (test code = 4.74 cm 2164385746) LV EF,2D (test code 64.34 % = 1398546109) LV,s (test code = 3.36 cm 7330797206) LVOT area (test code 3.53 cm2 = 4480323114) LVOT Diam,S (test 2.12 cm code = 7179789909) LVOT Vmax (test code 1.13 m/s = 5242410079) LVOT VTI (test code 0.21 m = 4739789007) LVPWD,d (test code = 0.85 cm 0.60-1.19 8862006514) MV E A ratio (test 0.86 code = 6918360838) AoV area i VTI BSA 1.52 cm2/m2 See_Comment [Automat ed Hidalgo (test code = message] The 2286416253) system which generated this result transmitted reference range : >=0.85. The reference range was not used to interpret this result as normal/abnormal . BMI (test code = 31.32 kg/m2 5448626316) E wave decelartion 89.56 See_Comment A [Automat ed time (test code = message] T he 9498368000) system which generated this result transmitted reference range : 200 msec. The reference range was not used to interpret this result as normal/abnormal . MV Peak A Quirino (test 0.88 m/s code = 8288258206) MV valve area p 1/2 8.47 cm2 method (test code = 0056258523) MV Peak E Quirino (test 0.75 m/s code = 0983253333) MV stenosis pressure 25.97 ms 1/2 time (test code = 9839863434) LVOT stroke volume 0.74 ml (test code = 3949162771) AV LVOT peak 4.69 mmHg gradient (test code = 1619422536) Ao Root Diameter 3.34 cm (test code = 7831865255) MV mean gradient 1.92 mmHg (test code = 7212812106) LV SYS VOL (test 46.16 ml 21-61 code = 4468041249) LV ANDERSON VOL (test 104.46 ml 62-150 code = 2309461154) LA area s A4C (test 17.60 cm2 code = 6686640912) LV SI Teich 2D (test 28.83 ml/m2 code = 2891551196) LV SV Teich 2D (test 58.30 ml code = 6867994993) LV Vol s Teich PSAX 46.16 ml (test code = 3689323659) LVOT CI (test code = 3.53 l/min/m2 4432541313) LVOT CO (test code = 7.14 l/min 6418701108) LVOT HR for LVOT CO 98.89 bpm (test code = 1026042971) LVOT SI (test code = 35.72 ml/m2 1159612442) MR peak grad (test 3.00 mmHg code = 4383095332) MV Vmax (test code = 0.87 m 8381311368) MV VTI Tips (test 0.14 m code = 4836533402) BSA Haycock (test 2.10 m2 code = 0042801579) AoV Vmn (test code = 0.97 m/s 4353929822) IVS s 2D (test code 1.17 cm = 8267261584) LV FS Teich 2D (test 29.09 code = 3978724816) MV AE ratio (test 1.17 code = 0520118477) LV FS Cube 2D (test 29.09 code = 3702042596) LVOT Vmn (test code 0.75 = 0016784672) Pt Size (test code = 170.18 1485379989) Pt Wt (test code = 90.72 3604273527) Aov area Vmn (test 3.05 cm2 code = 1611487469) LVOT mean grad (test 2.57 mmHg code = 5169953503) 85 of MPHR (test 140.25 code = 9275031420) AoV area I VMN bsa 1.51 cm2/m2 (test code = 8029474385) Calc MPHR (test code 165.01 bpm = 1284301074) IVS pct thck PLAX 39.76 % (test code = 4663399568) LV SI Cube 2D (test 33.91 ml/m2 code = 6394402976) LV SV Cube 2D (test 68.57 ml code = 4100737143) LV vol d cube 2D 106.56 ml (test code = 1927051820) LV vol s cube 2D 38.00 ml (test code = 7434108703) LVPW pct thck PLAX 35.24 % (test code = 2977559358) LVPW s PLAX (test 1.16 cm code = 5802131226) MV Decel slope (test 8.38 m/s2 code = 6035338800) Pred Exer Dur R1 9.48 (test code = 8718985836) Pred METS R1 (test 9.75 code = 7141354241) LA Vol MOD A4C (test 46.56 ml code = 6477365461) Velocity Ratio 0.80 m/s (V1/V2) (test code = 4689) EF (test code = 56 % 3829253349) E/A ratio (test code 0.85 = 2027532528) LVOT VTI (CM) (test 21.00 cm code = 9533984287) MOE (test code = MOE) Left Ventricle: [...] normal. Lab Interpretation Abnormal (test code = 86988-8) [facility] [Presence] in Respiratory specimen by LEILANI with probe [id number] 00:11:33 Test Item Value Reference Range Interpretation Comments SARS-CoV-2 (COVID-19) RNA Not detected [Presence] in Respiratory specimen by LEILANI with probe detection (test code = 78258-6) Whether patient is employed in a Unknown healthcare setting (test code = 78477-0) Whether the patient has symptoms Unknown related to condition of interest (test code = 27066-9) Whether the patient was Unknown hospitalized for condition of interest (test code = 83967-1) Whether the patient was admitted Unknown to intensive care unit (ICU) for condition of interest (test code = 99706-8) Whether patient resides in a Unknown congregate care setting (test code = 27084-7) status (test code = Unknown 31424-2) Date and time of symptom onset Unknown (test code = 99971-9) [facility] [id number] 20:52:15 Test Item Value Reference Range Interpretation Comments BSA (test code = 2.03 m2 7065581252) BSA Rashid (test code 2.12 m2 = 3576764746) BSA Haycock (test 2.11 m2 code = 1213540103) Pred METS R1 (test 9.76 code = 1829879091) Pred Exer Dur R1 9.48 (test code = 5468743954) Calc MPHR (test 165.06 bpm code = 8629990538) 85 of MPHR (test 140.30 code = 4512556947) Pt Wt (test code = 91.17 3794141725) Pt Size (test code 170.18 = 7161889864) BMI (test code = 31.48 kg/m2 6867252856) MOE (test code = MOE) Left Ventricle: [...] study. The probe was inserted by the president and chief commercial officer. There was no probe insertion difficulty. Anesthesia was given. Refer to anesthesia note. The patient tolerated the procedure well and recovered without any complications.Prior StudyThere were no significant changes noted when compared to the prior TTE study. [facility] agnbikpyxffhrru6267-73-46 20:52:15 Test Item Value Reference Range Interpretation Comments BSA (test code = 2.03 m2 2164073760) BSA Rashid (test code 2.12 m2 = 4978701213) BSA Haycock (test 2.11 m2 code = 0305131827) Pred METS R1 (test 9.76 code = 7549947319) Pred Exer Dur R1 9.48 (test code = 6201414599) Calc MPHR (test 165.06 bpm code = 2809635712) 85 of MPHR (test 140.30 code = 4359331986) Pt Wt (test code = 91.17 5594992034) Pt Size (test code 170.18 = 0130285085) BMI (test code = 31.48 kg/m2 7062980151) MOE (test code = MOE) Left Ventricle: [...] study. The probe was inserted by the president and chief commercial officer. There was no probe insertion difficulty. Anesthesia was given. Refer to anesthesia note. The patient tolerated the procedure well and recovered without any complications.Prior StudyThere were no significant changes noted when compared to the prior TTE study. [facility] myocardial [id number] 21:20:55 Test Item Value Reference Range Interpretation Comments Target HR (test 166.00 bpm code = 5267175338) Resting HR (test 99 BPM code = 1895660969) Resting BP (test 112/70 mmHg code = 2198088770) O2 sat rest (test 99 % code = 4133750721) Post Peak HR (test 113 bpm code = 1361978466) Percent HR (test 68.07 % code = 3296464216) Post Peak BP (test 112/70 mmHg code = 8709043508) O2 sat peak (test 98 % code = 6518734456) Nuc Stress EF (test 63 % code = 4605244298) Radiology Study observation (narrative) (test code = 95506-4) MOE (test code = MOE) Conclusion: Abnormal [...] The resting administration time was at 10:07 [employer]UDIES TEACHER on 04/17/2022. Resting images obtained at 11:22 FITNESS STUDIES TEACHER. Images performed at stress after an injection of 30.5 mCi. The stress administration time was at 12:20 FITNESS STUDIES TEACHER on 04/17/2022. Stress images obtained at 13:36 FITNESS STUDIES TEACHER.Nuclear Study QualityA perfusion 1-day rest/stress protocol [...] Scores: SDS Score: N/A Percentage Abnormal: N/A [facility] myocardial [id number] 21:20:55 Test Item Value Reference Range Interpretation Comments Target HR (test 166.00 bpm code = 5880069548) Resting HR (test 99 BPM code = 5123266147) Resting BP (test 112/70 mmHg code = 4883091444) O2 sat rest (test 99 % code = 0109679975) Post Peak HR (test 113 bpm code = 6351792883) Percent HR (test 68.07 % code = 3043329716) Post Peak BP (test 112/70 mmHg code = 2605914233) O2 sat peak (test 98 % code = 1150960670) Nuc Stress EF (test 63 % code = 8509418878) Radiology Study observation (narrative) (test code = 86730-2) MOE (test code = MOE) Conclusion: Abnormal [...] The resting administration time was at 10:07 [employer]UDIES TEACHER on 04/17/2022. Resting images obtained at 11:22 [employer] STUDIES TEACHER. Images performed at stress after an injection of 30.5 mCi. The stress administration time was at 12:20 [employer] STUDIES TEACHER on 04/17/2022. Stress images obtained at 13:36 [employer] STUDIES TEACHER.Nuclear Study QualityA perfusion 1-day rest/stress protocol [...] [facility] stress [id number] 21:15:16 Test Item Value Reference Range Interpretation Comments Resting HR (test code 99 = 5038567711) Resting BP (test code 112&70 = 8223567543) Peak MET Achieved 1.0 (test code = 2797322305) Protocol Name (test LEXISCAN code = 2808678140) Time in Exercise Phase 00:00:53 (test code = 4941874677) Max Systolic BP (test 112 code = 8716934943) Max Diastolic BP (test 70 code = 7928269926) Max Heart Rate (test 113 code = 3988860803) Max Predicted Heart 166 Rate (test code = 8825352755) Target HR Formula (220 - Age)*100% (test code = 3027730476) Test Indication (test code = 1774424848) Arrhy During Ex (test none code = 9254559311) ECG Interp Before EX atrial fibrillation (test code = 3127908708) ECG Interp During Ex NONSPECIFIC (test code = 0095990629) Ex Summary Comment Myoview to follow (test code = 1053131663) Chest Pain Statement none (test code = 1443983958) Overall HR Response to PHARMACOLOGIC STRESS Exercise (test code = 9809314914) Overall BP Response To normal resting BP - Exercise (test code = appropriate response 5807369918) Reason for Termination Protocol completed (test code = 6508316281) Stress Test Impression MYOVIEW TO (test code = FOLLOW--Electronically 1881977790) Signed By Jaspreet Cannon MD ([id number]) on 04/18/2022 3:15:13 PM [facility] stress [id number] 21:15:16 Test Item Value Reference Range Interpretation Comments Resting HR (test code 99 = 6885785537) Resting BP (test code 112&70 = 0340858019) Peak MET Achieved 1.0 (test code = 4267030642) Protocol Name (test LEXISCAN code = 0370167673) Time in Exercise Phase 00:00:53 (test code = 7012398934) Max Systolic BP (test 112 code = 0206544991) Max Diastolic BP (test 70 code = 1740011441) Max Heart Rate (test 113 code = 5704824180) Max Predicted Heart 166 Rate (test code = 5860322573) Target HR Formula (220 - Age)*100% (test code = 0254957920) Test Indication (test code = 4353183811) Arrhy During Ex (test none code = 6950350137) ECG Interp Before EX atrial fibrillation (test code = 6299952969) ECG Interp During Ex NONSPECIFIC (test code = 4815653634) Ex Summary Comment Myoview to follow (test code = 8696379817) Chest Pain Statement none (test code = 0535834902) Overall HR Response to PHARMACOLOGIC STRESS Exercise (test code = 0737795638) Overall BP Response To normal resting BP - Exercise (test code = appropriate response 8941387073) Reason for Termination Protocol completed (test code = 8561479947) Stress Test Impression MYOVIEW TO (test code = FOLLOW--Electronically 4983633143) Signed By Jaspreet Cannon MD ([id number]) on 04/18/2022 3:15:13 [facility] (w Contrast, Strain and 3D if needed)2022-04-14 21:07:42 Test Item Value Reference Interpretation Comments Range EF (test code = 59 % 52-72 0612464398) LV EF,BP (test code 57.09 % = 4609526202) IVS,d (test code = 1.13 cm 0.6-1 A 7535940673) IVS s 2D (test code 1.32 cm = 3643343606) LVPWD,d (test code 1.09 cm 0.60-1.19 = 3917807588) LVPW s PLAX (test 1.37 cm code = 9648199906) LV,s (test code = 3.04 cm 2472473317) LVOT Diam,S (test 2.09 cm code = 9625140717) LV ANDERSON VOL (test 88.75 ml 62-150 code = 0518702469) LV SYS VOL (test 36.02 ml 21-61 code = 0881755181) LV Vol,d A2C (test 82.11 mL code = 3378011217) LV Vol,s A2C (test 34.60 mL code = 2467457332) LV Vol,d A4C (test 81.73 ml code = 4247553919) LV Vol,s A4C (test 37.26 ml code = 1125530646) MV Peak E Quirino (test 0.89 m/s code = 2700248870) MV Peak A Quirino (test 0.25 m/s code = 7879598591) E/A ratio (test 3.56 See_Comment A [Automated code = 9558952129) message] The system which generated this result transmitted reference range: <=0.8. The reference range was not used to interpret this result as normal/abnormal . E wave decelartion 177.02 See_Comment A [Automat ed time (test code = message] T he 6651841167) system which generated this result transmitted reference range: 200 msec. The reference range was not used to interpret this result as normal/abnormal . LV Systolic Volume 17.13 mL/m2 11-31 Index (test code = 3417521429) LV Diastolic Volume 40.65 mL/m2 34-74 Index (test code = 3905973184) LV,d (test code = 4.42 cm 1163215480) IVS/LVPW,2D (test 1.03 code = 7230808516) LV EF,2D (test code 67.66 % = 2860139895) LV FS Cube 2D (test 31.36 code = 4061507480) LV FS Teich 2D 31.36 (test code = 8228345156) LV SI Teich 2D 26.07 ml/m2 (test code = 1516437282) LV SV Teich 2D 52.72 ml (test code = 2505469336) LV Vol s Teich PSAX 36.02 ml (test code = 8688506387) LVOT stroke volume 0.48 cm3 (test code = 6706451591) Left Atrium 3.37 cm See_Comment [Automated Dimension Anterior message] The (test code = system which 1092643194) generated this result transmitted reference range: <=4. The reference range was not used to interpret this result as normal/abnormal . LA Vol MOD A4C 44.03 ml (test code = 1887399632) LA area s A4C (test 16.42 cm2 code = 1090645304) LVOT area (test 3.43 cm2 code = 7300270143) LVOT Vmax (test 0.86 m/s code = 9764746206) AoV Mean PG (test 3.31 See_Comment [Automate d code = 6310976933) message] The system which generated this result transmitted reference range: 20 mmHg. The reference range was not used to interpret this result as normal/abnormal . AoV Peak PG (test 4.75 mmHg code = 2477527854) AV LVOT peak 2.89 mmHg gradient (test code = 7426275023) AoV area i VTI BSA 1.33 cm2/m2 See_Comment [Automat ed Jean Claude (test code = message] The 7321989919) system which generated this result transmitted reference range: >=0.85. The reference range was not used to interpret this result as normal/abnormal . AoV Area, Vmax 2.67 cm2 See_Comment [Automated (test code = message] The 7861787643) system which generated this result transmitted reference range: >=1.5. The reference range was not used to interpret this result as normal/abnormal . LVOT VTI (CM) (test 14.00 cm code = 5525844361) AoV Vmax (test code 1.11 m/s = 8219955329) AoV Vmn (test code 0.88 m/s = 5584204133) AoV Area, VTI (test 2.69 cm2 code = 9543051094) LVOT CO (test code 5.03 l/min = 4723619651) LVOT CI (test code 2.49 l/min/m2 = 2467215248) LVOT HR for LVOT CO 113.01 bpm (test code = 6753245485) LVOT SI (test code 22.01 ml/m2 = 7793109682) Velocity Ratio 0.77 m/s (V1/V2) (test code = 4689) MV stenosis 41.13 ms See_Comment [Automated pressure 1/2 time message] T he (test code = system which 4076753154) generated this result transmitted reference range: <=150. The reference range was not used to interpret this result as normal/abnormal . MV E A ratio (test 6.25 code = 6769867253) MV valve area p 1/2 5.35 cm2 method (test code = 3008021685) E prime lat (test 0.04 code = 7923505323) E prime sept (test 0.03 code = 0631328801) RVOT Vmax (test 0.87 m/s code = 1481762344) PV Pk Grad (test 2.43 See_Comment [Automated code = 0878797281) message] The system which generated this result transmitted reference range: 36 mmHg. The reference range was not used to interpret this result as normal/abnormal . RVOT pk grad (test 3.02 mmHg code = 1977930597) PV VMAX (test code 0.78 m/s See_Comment [Automat ed = 3432646647) message] The system which generated this result transmitted reference range: <=3. The reference range was not used to interpret this result as normal/abnormal . Ao Root Diameter 2.77 cm See_Comment [Automated (test code = message] The 5618426055) system which generated this result transmitted reference range: <=3.99. The reference range was not used to interpret this result as normal/abnormal . Ao Root Diameter 2.77 cm (test code = 7314713293) Ascending aorta 2.95 cm (test code = 4049752769) BSA (test code = 2.02 m2 3117855808) BSA Rashid (test code 2.11 m2 = 9938412217) BSA Haycock (test 2.10 m2 code = 2072790241) Pred METS R1 (test 9.76 code = 3029473904) Pred Exer Dur R1 9.49 (test code = 1702351836) MV Decel slope 5.02 m/s2 (test code = 6481794722) LVPW pct thck PLAX 25.29 % (test code = 6123356857) LV vol s cube 2D 27.97 ml (test code = 4564639017) LV vol d cube 2D 86.49 ml (test code = 8693197245) LV SV Cube 2D (test 58.52 ml code = 7380956272) LV SI Cube 2D (test 28.94 ml/m2 code = 4271405492) IVS pct thck PLAX 16.96 % (test code = 9968068695) Calc MPHR (test 165.08 bpm code = 3920007694) AoV area I VMN bsa 1.20 cm2/m2 (test code = 4031951477) 85 of MPHR (test 140.32 code = 7542303515) RVOT VTI (test code 0.14 m = 7062283054) RVOT Vmn (test code 0.59 m/s = 7883953738) RVOT mean grad 1.54 mmHg (test code = 8660392376) LVOT mean grad 1.67 mmHg (test code = 9511930526) Aov area Vmn (test 2.42 cm2 code = 4966587125) Pt Wt (test code = 90.72 0857818625) Pt Size (test code 170.18 = 3047068332) MV AE ratio (test 0.16 code = 1014604657) LVOT Vmn (test code 0.61 = 0072773183) PV Vmn (test code = 17.84 m/s 8007833483) LV Vol Index s 41.57 ml/m2 bpmod BSA [place] (test code = 5245669162) LV SI MOD BP BSA 23.73 ml/m2 Jean Claude (test code = 1310330230) BMI (test code = 31.32 kg/m2 5772034520) LV Vol,s BP (test 36.07 nl code = 2927660808) LV Vol,d BP (test 84.05 ml code = 2247384545) LV SV,BP (test code 47.99 % = 7357252043) LV SV,A4C (test 44.47 % code = 6813469895) LV SV,A2C (test 47.51 % code = 8271503019) [facility] [employer] [facility],s A4C 6.78 cm (test code = 9443769460) [facility],s A2C 6.94 cm (test code = 2667709378) [facility],d A4C 7.48 cm (test code = 9552833708) [facility],d A2C 7.91 cm (test code = 7195190157) LV EF,A4C (test 54.41 % code = 7717614929) LV EF,A2C (test 57.86 % code = 7701350689) AoV VTI (test code 0.16 m = 2778220673) LVOT VTI (test code 0.14 m = 4574564046) MOE (test code = MOE) Left Ventricle: [...] status. Lab Interpretation Abnormal (test code = 57132-3) [facility] (w [facility], Strain and 3D if needed)2022-04-14 21:07:42 Test Item Value Reference Interpretation Comments Range EF (test code = 59 % 52-72 9789038557) LV EF,BP (test code 57.09 % = 2449454818) IVS,d (test code = 1.13 cm 0.6-1 A 1809060357) IVS s 2D (test code 1.32 cm = 7008001656) LVPWD,d (test code 1.09 cm 0.60-1.19 = 6972072437) LVPW s PLAX (test 1.37 cm code = 8753839169) LV,s (test code = 3.04 cm 5855729226) LVOT Diam,S (test 2.09 cm code = 9121210697) LV ANDERSON VOL (test 88.75 ml 62-150 code = 4332806821) LV SYS VOL (test 36.02 ml 21-61 code = 7317446321) LV Vol,d A2C (test 82.11 mL code = 8825692257) LV Vol,s A2C (test 34.60 mL code = 3140405082) LV Vol,d A4C (test 81.73 ml code = 0245906168) LV Vol,s A4C (test 37.26 ml code = 6245382623) MV Peak E Quirino (test 0.89 m/s code = 2906811514) MV Peak A Quirino (test 0.25 m/s code = 7629948861) E/A ratio (test 3.56 See_Comment A [Automated code = 6133625878) message] The system which generated this result transmitted reference range: <=0.8. The reference range was not used to interpret this result as normal/abnormal . E wave decelartion 177.02 See_Comment A [Automat ed time (test code = message] T he 9469343317) system which generated this result transmitted reference range: 200 msec. The reference range was not used to interpret this result as normal/abnormal . LV Systolic Volume 17.13 mL/m2 - Index (test code = 2254849830) LV Diastolic Volume 40.65 mL/m2 34-74 Index (test code = 8087081660) LV,d (test code = 4.42 cm 0847313255) IVS/LVPW,2D (test 1.03 code = 9305124895) LV EF,2D (test code 67.66 % = 5599334743) LV FS Cube 2D (test 31.36 code = 5218317985) LV FS Teich 2D 31.36 (test code = 3913188240) LV SI Teich 2D 26.07 ml/m2 (test code = 3548475771) LV SV Teich 2D 52.72 ml (test code = 5838528963) LV Vol s Teich PSAX 36.02 ml (test code = 4642980680) LVOT stroke volume 0.48 cm3 (test code = 8777492185) Left Atrium 3.37 cm See_Comment [Automated Dimension Anterior message] The (test code = system which 5026462263) generated this result transmitted reference range: <=4. The reference range was not used to interpret this result as normal/abnormal . LA Vol MOD A4C 44.03 ml (test code = 1451616925) LA area s A4C (test 16.42 cm2 code = 1666050212) LVOT area (test 3.43 cm2 code = 0493903071) LVOT Vmax (test 0.86 m/s code = 8824383331) AoV Mean PG (test 3.31 See_Comment [Automate d code = 8255365612) message] The system which generated this result transmitted reference range: 20 mmHg. The reference range was not used to interpret this result as normal/abnormal . AoV Peak PG (test 4.75 mmHg code = 2216436474) AV LVOT peak 2.89 mmHg gradient (test code = 0065010836) AoV area i VTI BSA 1.33 cm2/m2 See_Comment [Automat ed Jean Claude (test code = message] The 1673916827) system which generated this result transmitted reference range: >=0.85. The reference range was not used to interpret this result as normal/abnormal . AoV Area, Vmax 2.67 cm2 See_Comment [Automated (test code = message] The 9046521739) system which generated this result transmitted reference range: >=1.5. The reference range was not used to interpret this result as normal/abnormal . LVOT VTI (CM) (test 14.00 cm code = 9023727317) AoV Vmax (test code 1.11 m/s = 9893589309) AoV Vmn (test code 0.88 m/s = 5834356447) AoV Area, VTI (test 2.69 cm2 code = 9081297631) LVOT CO (test code 5.03 l/min = 2446424790) LVOT CI (test code 2.49 l/min/m2 = 3358718356) LVOT HR for LVOT CO 113.01 bpm (test code = 5714922748) LVOT SI (test code 22.01 ml/m2 = 7006644112) Velocity Ratio 0.77 m/s (V1/V2) (test code = 4689) MV stenosis 41.13 ms See_Comment [Automated pressure 1/2 time message] T he (test code = system which 0154849604) generated this result transmitted reference range: <=150. The reference range was not used to interpret this result as normal/abnormal . MV E A ratio (test 6.25 code = 8357215801) MV valve area p 1/2 5.35 cm2 method (test code = 5135852012) E prime lat (test 0.04 code = 4090669575) E prime sept (test 0.03 code = 9531736101) RVOT Vmax (test 0.87 m/s code = 2953040733) PV Pk Grad (test 2.43 See_Comment [Automated code = 0459596782) message] The system which generated this result transmitted reference range: 36 mmHg. The reference range was not used to interpret this result as normal/abnormal . RVOT pk grad (test 3.02 mmHg code = 0281719443) PV VMAX (test code 0.78 m/s See_Comment [Automat ed = 6202833295) message] The system which generated this result transmitted reference range: <=3. The reference range was not used to interpret this result as normal/abnormal . Ao Root Diameter 2.77 cm See_Comment [Automated (test code = message] The 5532520379) system which generated this result transmitted reference range: <=3.99. The reference range was not used to interpret this result as normal/abnormal . Ao Root Diameter 2.77 cm (test code = 0572580628) Ascending aorta 2.95 cm (test code = 6252477712) BSA (test code = 2.02 m2 9499145909) BSA Rashid (test code 2.11 m2 = 7354637744) BSA Haycock (test 2.10 m2 code = 6106315822) Pred METS R1 (test 9.76 code = 7701981808) Pred Exer Dur R1 9.49 (test code = 8582078076) MV Decel slope 5.02 m/s2 (test code = 4391388302) LVPW pct thck PLAX 25.29 % (test code = 7979624533) LV vol s cube 2D 27.97 ml (test code = 9219049373) LV vol d cube 2D 86.49 ml (test code = 6598476689) LV SV Cube 2D (test 58.52 ml code = 4670667980) LV SI Cube 2D (test 28.94 ml/m2 code = 2765166940) IVS pct thck PLAX 16.96 % (test code = 8824227815) Calc MPHR (test 165.08 bpm code = 2842905312) AoV area I VMN bsa 1.20 cm2/m2 (test code = 7564979707) 85 of MPHR (test 140.32 code = 5729831378) RVOT VTI (test code 0.14 m = 8823314278) RVOT Vmn (test code 0.59 m/s = 2891677254) RVOT mean grad 1.54 mmHg (test code = 9688708524) LVOT mean grad 1.67 mmHg (test code = 9232169425) Aov area Vmn (test 2.42 cm2 code = 1641205488) Pt Wt (test code = 90.72 1934321276) Pt Size (test code 170.18 = 5056903759) MV AE ratio (test 0.16 code = 3270395547) LVOT Vmn (test code 0.61 = 1780919993) PV Vmn (test code = 17.84 m/s 0500317992) LV Vol Index s 41.57 ml/m2 bpmod BSA Jean Claude (test code = 5441103515) LV SI MOD BP BSA 23.73 ml/m2 [place]go (test code = 3364805174) BMI (test code = 31.32 kg/m2 6125598354) LV Vol,s BP (test 36.07 nl code = 2804770093) LV Vol,d BP (test 84.05 ml code = 1197622861) LV SV,BP (test code 47.99 % = 8705473833) LV SV,A4C (test 44.47 % code = 5174044672) LV SV,A2C (test 47.51 % code = 6619071239) [facility],s A4C 6.78 cm (test code = 3336135362) [facility],s A2C 6.94 cm (test code = 7346797788) [facility],d A4C 7.48 cm (test code = 1592560112) [facility],d A2C 7.91 cm (test code = 1727907254) LV EF,A4C (test 54.41 % code = 6812121455) LV EF,A2C (test 57.86 % code = 3707575128) AoV VTI (test code 0.16 m = 1182330507) LVOT VTI (test code 0.14 m = 1778481762) MOE (test code = MOE) Left Ventricle: [...] status. Lab Interpretation Abnormal (test code = 62909-0) [facility] [id number] (COVID-19) RNA [Presence] in Respiratory specimen by LEILANI with probe [id number] 05:21:05 Test Item Value Reference Range Interpretation Comments SARS-CoV-2 (COVID-19) RNA Not detected [Presence] in Respiratory specimen by LEILANI with probe detection (test code = 40967-7) Whether patient is employed in a Unknown healthcare setting (test code = 77277-1) Whether the patient has symptoms Unknown related to condition of interest (test code = 74768-6) Whether the patient was Unknown hospitalized for condition of interest (test code = 09482-8) Whether the patient was admitted Unknown to intensive care unit (ICU) for condition of interest (test code = 50297-9) Whether patient resides in a Unknown congregate care setting (test code = 08201-6) status (test code = Unknown 47560-2) Date and time of symptom onset Unknown (test code = 93821-0) [facility] ED Preliminary Interpretation - Not an [id number] 21:56:45 Test Item Value Reference Range Interpretation Comments MOE (test code = MOE) Fortino Lozano MD 04/12/2022 9:18 [facility] [place] [place] ED Preliminary Interpretation - Not an OrderPerformed by: Fortino Lozano MDAuthorized by: Fortino Lozano MD ECG reviewed by ED Physician in the absence of a president and chief commercial officer: yes Interpretation: Interpretation: abnormal Rate: ECG rate: 116 ECG rate assessment: tachycardic Rhythm: Rhythm: sinus tachycardia Ectopy: Ectopy: none QRS: QRS axis: Left QRS intervals: NormalConduction: Conduction: abnormal Abnormal conduction: complete RBBB ST segments: ST segments: NormalT waves: T waves: normal Comments: Similar to 10/10 Lab Interpretation Abnormal (test code = 97116-1) [facility] ED Preliminary Interpretation - Not an [id number] 21:56:45 Test Item Value Reference Range Interpretation Comments MOE (test code = MOE) Fortino Lozano MD 04/12/2022 9:18 [facility] [place] [place] ED Preliminary Interpretation - Not an OrderPerformed by: Fortino Lozano MDAuthorized by: Fortino Lozano MD ECG reviewed by ED Physician in the absence of a president and chief commercial officer: yes Interpretation: Interpretation: abnormal Rate: ECG rate: 116 ECG rate assessment: tachycardic Rhythm: Rhythm: sinus tachycardia Ectopy: Ectopy: none QRS: QRS axis: Left QRS intervals: NormalConduction: Conduction: abnormal Abnormal conduction: complete RBBB ST segments: ST segments: NormalT waves: T waves: normal Comments: Similar to 10/10 Lab Interpretation Abnormal (test code = 30010-8) [facility] ED Preliminary Interpretation - Not an [id number] 21:56:45 Test Item Value Reference Range Interpretation Comments MOE (test code = MOE) Fortino Lozano MD 04/12/2022 9:18 [facility] [place] [place] ED Preliminary Interpretation - Not an OrderPerformed by: Fortino Lozano MDAuthorized by: Fortino Lozano MD ECG reviewed by ED Physician in the absence of a president and chief commercial officer: yes Interpretation: Interpretation: abnormal Rate: ECG rate: 116 ECG rate assessment: tachycardic Rhythm: Rhythm: sinus tachycardia Ectopy: Ectopy: none QRS: QRS axis: Left QRS intervals: NormalConduction: Conduction: abnormal Abnormal conduction: complete RBBB ST segments: ST segments: NormalT waves: T waves: normal Comments: Similar to 10/10 Lab Interpretation Abnormal (test code = 78287-0) [facility] ED Preliminary Interpretation - Not an [id number] 21:56:45 Test Item Value Reference Range Interpretation Comments MOE (test code = MOE) Fortino Lozano MD 04/12/2022 9:18 [facility] [place] [place] ED Preliminary Interpretation - Not an OrderPerformed by: Fortino Lozano MDAuthorized by: Fortino Lozano MD ECG reviewed by ED Physician in the absence of a president and chief commercial officer: yes Interpretation: Interpretation: abnormal Rate: ECG rate: 116 ECG rate assessment: tachycardic Rhythm: Rhythm: sinus tachycardia Ectopy: Ectopy: none QRS: QRS axis: Left QRS intervals: NormalConduction: Conduction: abnormal Abnormal conduction: complete RBBB ST segments: ST segments: NormalT waves: T waves: normal Comments: Similar to 10/10 Lab Interpretation Abnormal (test code = 39625-7) [facility] ED Preliminary Interpretation - Not an [id number] 21:56:45 Test Item Value Reference Range Interpretation Comments MOE (test code = MOE) Fortino Lozano MD 04/12/2022 9:18 [facility] [place] [place] ED Preliminary Interpretation - Not an OrderPerformed by: Fortino Lozano MDAuthorized by: Fortino Lozano MD ECG reviewed by ED Physician in the absence of a president and chief commercial officer: yes Interpretation: Interpretation: abnormal Rate: ECG rate: 116 ECG rate assessment: tachycardic Rhythm: Rhythm: sinus tachycardia Ectopy: Ectopy: none QRS: QRS axis: Left QRS intervals: NormalConduction: Conduction: abnormal Abnormal conduction: complete RBBB ST segments: ST segments: NormalT waves: T waves: normal Comments: Similar to 10/10 Lab Interpretation Abnormal (test code = 99189-2) [facility] Preliminary Interpretation - Not an [id number] 21:56:45 Test Item Value Reference Range Interpretation Comments MOE (test code = MOE) Fortino Lozano MD 04/12/2022 9:18 [facility] [place] [place] ED Preliminary Interpretation - Not an OrderPerformed by: Fortino Lozano MDAuthorized by: Fortino Lozano MD ECG reviewed by ED Physician in the absence of a president and chief commercial officer: yes Interpretation: Interpretation: abnormal Rate: ECG rate: 116 ECG rate assessment: tachycardic Rhythm: Rhythm: sinus tachycardia Ectopy: Ectopy: none QRS: QRS axis: Left QRS intervals: NormalConduction: Conduction: abnormal Abnormal conduction: complete RBBB ST segments: ST segments: NormalT waves: T waves: normal Comments: Similar to 10/10 Lab Interpretation Abnormal (test code = 37458-2) [facility] [place] ED Preliminary Interpretation - Not an [id number] 21:56:45 Test Item Value Reference Range Interpretation Comments MOE (test code = MOE) Fortino Lozano MD 04/12/2022 9:18 [facility] [place] [place] ED Preliminary Interpretation - Not an OrderPerformed by: Fortino Lozano MDAuthorized by: Fortino Lozano MD ECG reviewed by ED Physician in the absence of a president and chief commercial officer: yes Interpretation: Interpretation: abnormal Rate: ECG rate: 116 ECG rate assessment: tachycardic Rhythm: Rhythm: sinus tachycardia Ectopy: Ectopy: none QRS: QRS axis: Left QRS intervals: NormalConduction: Conduction: abnormal Abnormal conduction: complete RBBB ST segments: ST segments: NormalT waves: T waves: normal Comments: Similar to 10/10 Lab Interpretation Abnormal (test code = 00432-3) [facility] ED Preliminary Interpretation - Not an [id number] 21:56:45 Test Item Value Reference Range Interpretation Comments MOE (test code = MOE) Fortino Lozano MD 04/12/2022 9:18 [facility] [place] [place] ED Preliminary Interpretation - Not an OrderPerformed by: Fortino Lozano MDAuthorized by: Fortino Lozano MD ECG reviewed by ED Physician in the absence of a president and chief commercial officer: yes Interpretation: Interpretation: abnormal Rate: ECG rate: 116 ECG rate assessment: tachycardic Rhythm: Rhythm: sinus tachycardia Ectopy: Ectopy: none QRS: QRS axis: Left QRS intervals: NormalConduction: Conduction: abnormal Abnormal conduction: complete RBBB ST segments: ST segments: NormalT waves: T waves: normal Comments: Similar to 10/10 Lab Interpretation Abnormal (test code = 41550-6) [facility] ED Preliminary Interpretation - Not an [id number] 21:56:45 Test Item Value Reference Range Interpretation Comments MOE (test code = MOE) Fortino Lozano MD 04/12/2022 9:18 [facility] [place] [place] ED Preliminary Interpretation - Not an OrderPerformed by: Fortino Lozano MDAuthorized by: Fortino Lozano MD ECG reviewed by ED Physician in the absence of a president and chief commercial officer: yes Interpretation: Interpretation: abnormal Rate: ECG rate: 116 ECG rate assessment: tachycardic Rhythm: Rhythm: sinus tachycardia Ectopy: Ectopy: none QRS: QRS axis: Left QRS intervals: NormalConduction: Conduction: abnormal Abnormal conduction: complete RBBB ST segments: ST segments: NormalT waves: T waves: normal Comments: Similar to 10/10 Lab Interpretation Abnormal (test code = 61222-8) [facility] FkkgiudnRNVR-BrD-7 (COVID-19) RNA [Presence] in Respiratory specimen by LEILANI with probe [id number] 10:09:09 Test Item Value Reference Range Interpretation Comments SARS-CoV-2 (COVID-19) RNA Not detected [Presence] in Respiratory specimen by LEILANI with probe detection (test code = 89918-2) Whether patient is employed in a Unknown healthcare setting (test code = 18409-7) Whether the patient has symptoms Unknown related to condition of interest (test code = 27748-7) Whether the patient was Unknown hospitalized for condition of interest (test code = 36654-0) Whether the patient was admitted Unknown to intensive care unit (ICU) for condition of interest (test code = 98152-7) Whether patient resides in a Unknown congregate care setting (test code = 23268-6) status (test code = Unknown 53246-1) Date and time of symptom onset Unknown (test code = 61925-1) [id number] 08:07:00 Test Item Value Reference Range Interpretation Comments GLUBED (test code = 170 mg/dL 74-106 H Performe d by certified GLUBED) information systems operator at [facility] [id number] 21:00:00 Test Item Value Reference Range Interpretation Comments GLUBED (test code = 185 mg/dL 74-106 H Performe d by certified GLUBED) information systems operator at [facility] [id number] 15:40:00 Test Item Value Reference Range Interpretation Comments GLUBED (test code = 167 mg/dL 74-106 H Performe d by certified GLUBED) information systems operator at [facility] [id number] 11:13:00 Test Item Value Reference Range Interpretation Comments GLUBED (test code = 212 mg/dL 74-106 H Performe d by certified GLUBED) information systems operator at [facility] [id number] 08:09:00 Test Item Value Reference Range Interpretation Comments GLUBED (test code = 91 mg/dL 74-106 N Performe d by certified GLUBED) information systems operator at [facility] [id number] 20:51:00 Test Item Value Reference Range Interpretation Comments GLUBED (test code = 155 mg/dL 74-106 H Performe d by certified GLUBED) information systems operator at [facility] [id number] 15:53:00 Test Item Value Reference Range Interpretation Comments GLUBED (test code = 130 mg/dL 74-106 H Performe d by certified GLUBED) information systems operator at [facility] [id number] 11:15:00 Test Item Value Reference Range Interpretation Comments GLUBED (test code = 195 mg/dL 74-106 H Performe d by certified GLUBED) information systems operator at [facility] [id number] 07:48:00 Test Item Value Reference Range Interpretation Comments GLUBED (test code = 142 mg/dL 74-106 H Performe d by certified GLUBED) information systems operator at [facility] BASIC METABOLIC [id number] 07:09:00 Test Item Value Reference Range Interpretation [...] >3 months. [Automated mess age] The system [facility] [employer] [facility] generated this result transmitted ref erence range: >=60. Th e reference range was not used to int erpret this result as normal/abnormal . CREATININE (test 0.80 mg/dL 0.7-1.3 N code = CREAT) BUN/CREATININE RATIO 7.6 10-20 L (test code = BUN/CREA) CALCIUM (test code = 8.6 mg/dL 8.5-10.1 N CA) CBC W/AUTO [id number] 06:52:00 Test Item Value Reference Range Interpretation [...] DIFF REQUIRED (test code NO = MDIFF) [id number] 20:15:00 Test Item Value Reference Range Interpretation Comments GLUBED (test code = 227 mg/dL 74-106 H Performe d by certified GLUBED) information systems operator at [facility] [id number] 15:49:00 Test Item Value Reference Range Interpretation Comments GLUBED (test code = 191 mg/dL 74-106 H Performe d by certified GLUBED) information systems operator at [facility] [id number] 10:43:00 Test Item Value Reference Range Interpretation Comments GLUBED (test code = 362 mg/dL 74-106 H Performe d by certified GLUBED) information systems operator at [facility] [id number] 08:01:00 Test Item Value Reference Range Interpretation Comments GLUBED (test code = 203 mg/dL 74-106 H Performe d by certified GLUBED) information systems operator at [facility] BASIC METABOLIC [id number] 02:21:00 Test Item Value Reference Range Interpretation [...] >3 months. [Automated mess age] The system [employer] generated this result transmitted ref erence range: >=60. Th e reference range was not used to int erpret this result as normal/abnormal . CREATININE (test 0.70 mg/dL 0.7-1.3 N code = CREAT) BUN/CREATININE RATIO 11.6 10-20 N (test code = BUN/CREA) CALCIUM (test code = 8.2 mg/dL 8.5-10.1 L CA) CBC W/AUTO [id number] 02:17:00 Test Item Value Reference Range Interpretation [...] = 0.00 K/mm3 0.0-0.1 N NRBC#) VANCOMYCIN [id number] 22:07:00 Test Item Value Reference Range Interpretation Comments VANCOMYCIN TROUGH (test code = 10.5 ug/mL 10-20 N VANCT) [id number] 20:15:00 Test Item Value Reference Range Interpretation Comments GLUBED (test code = 185 mg/dL 74-106 H Performe d by certified GLUBED) information systems operator at [facility] [id number] 16:48:00 Test Item Value Reference Range Interpretation Comments GLUBED (test code = 280 mg/dL 74-106 H Performe d by certified GLUBED) information systems operator at [facility] [id number] 13:00:00 Test Item Value Reference Range Interpretation Comments GLUBED (test code = 226 mg/dL 74-106 H Performe d by certified GLUBED) information systems operator at [facility] [id number] 11:29:00 Test Item Value Reference Range Interpretation Comments GLUBED (test code = 246 mg/dL 74-106 H Performe d by certified GLUBED) information systems operator at [facility] [id number] 10:34:00 Test Item Value Reference Range Interpretation Comments GLUBED (test code = 227 mg/dL 74-106 H Performe d by certified GLUBED) information systems operator at [facility] [id number] 10:34:00 Test Item Value Reference Range Interpretation Comments GLUBED (test code = 256 mg/dL 74-106 H Performe d by certified GLUBED) information systems operator at [facility] [id number] 10:34:00 Test Item Value Reference Range Interpretation Comments GLUBED (test code = 213 mg/dL 74-106 H Performe d by certified GLUBED) information systems operator at [facility] [id number] 03:23:00 Test Item Value Reference Range Interpretation Comments GLYCOSYLATED HEMOGLOBIN 13.1 % HbA1 SAMMY CARBALLO (HA1C) (test code = DIAGNOSI S: HbA1C GLYHGB) (%) ---- ------ Diab etic >6.4Prediabetes 5.7 - 6.4Normal <5 .7 ESTIMATED AVERAGE 329 MG/DL GLUCOSE (test code [...] is a direct measurement.=== ====== BASIC METABOLIC [id number] 18:01:00 Test Item Value Reference Range Interpretation [...] >3 months. [Automated mess age] The system [employer] generated this result transmitted ref erence range: >=60. Th e reference range was not used to int erpret this result as normal/abnormal . CREATININE (test 0.80 mg/dL 0.7-1.3 N code = CREAT) BUN/CREATININE RATIO 14.1 10-20 N (test code = BUN/CREA) CALCIUM (test code = 8.3 mg/dL 8.5-10.1 L CA) [id number] 18:01:00 Test Item Value Reference Range Interpretation Comments PHOSPHORUS (test code = PHOS) 2.8 mg/dL 2.5-4.9 N [id number] 18:01:00 Test Item Value Reference Range Interpretation Comments MAGNESIUM (test code = MAG) 1.7 mg/dL 1.8-2.4 L THYROID STIMULATING [id number] 18:01:00 Test Item Value Reference Range Interpretation Comments THYROID STIMULATING 0.667 uIU/mL 0.36-3.74 N TSH REFE RENCE HORMONE (test code = RANGES: EUTHYROID: TSH) 0.35 - 4.3 mIU/ mL HYPO : > 5.5 mI U/mL HYPER : < 0.35 mIU/mL CBC W/AUTO [id number] 18:00:00 Test Item Value Reference Range Interpretation [...] = 0.00 K/mm3 0.0-0.1 N NRBC#) LACTIC [id number] 14:22:00 Test Item Value Reference Range Interpretation Comments LACTIC ACID (test code = LACT) 1.3 mmol/L 0.4-1.9 N - XR TIBIA/FIBULA 2 V [id number] 12:37:00 [facility])Name: HARJINDER COLUNGA : 1965 Sex: M FAX: Jerry Roa MD [phone] [place]: [address]: REG Name: HARJINDER COLUNGA [facility] : 1965 Age/S: 56/M [address] Unit #: [id number] Loc: [place] [address] Phys: Jerry Roa MD Acct: [id number] Dis Date: Status: REG ER PHONE #: [phone] Exam Date: 12/31/2021 1226 FAX #: [phone] Reason: leg redness EXAMS: CPT CODE: [id number] XR TIBIA/FIBULA 2 [place] [address] REASON FOR EXAM: leg redness EXAM ORDER [...] appear edematous. Correlate with physical exam. Location: [facility] ElectronicallySigned by Magan Rae MD on 12/31/2021 at 1237 Reported and signed by: Magan Rae MD CC: Jerry Roa MD Technologist: FORTINO SOSA, RT(R) Trnscrd Date/Time/By: 12/31/2021 (0028) : By: [email or web address] [facility] Print D/T: S: 12/31/2021 (0294) PAGE 1 Signed Report- XR KNEE 3 V [id number] 12:37:00 [facility])Name: HARJINDER COLUNGA : 1965 Sex: M FAX: Jerry Roa MD [phone] [place]: St: REG Name: HARJINDER COLUNGA [facility] : 1965 Age/S: 56/M [address] [facility] Unit #: [id number] Loc: [place], [place] [address] Phys: Jerry Roa MD Acct: [id number] Dis Date: Status: REG ER PHONE #: [phone] Exam Date: 12/31/2021 1226 FAX #: [phone] Reason: leg redness EXAMS: CPT CODE: [id number] XR KNEE 3 V LT [address]345 REASON FOR EXAM: leg redness EXAM ORDER [...] appear edematous. Correlate with physical exam. Location: [facility] at 1237 Reported and signed by: Magan Rae MD CC: Jerry Roa MD Technologist: FORTINO SOSA, RT(R) Trnscrd Date/Time/By: 12/31/2021 (7690) : By: [email or web address] Orig Print D/T: S: 12/31/2021 (9975) PAGE 1 Signed ReportBASIC METABOLIC [id number] 12:10:00 Test Item Value Reference Range Interpretation [...] >3 months. [Automated mess age] The system [employer] generated this result transmitted ref erence range: >=60. Th e reference range was not used to int erpret this result as normal/abnormal . CREATININE (test code 1.00 mg/dL 0.7-1.3 N = CREAT) BUN/CREATININE RATIO 10.8 10-20 N (test code = BUN/CREA) CALCIUM (test code = 8.8 mg/dL 8.5-10.1 N CA) HEPATIC FUNCTION [id number] 12:10:00 Test Item Value Reference Range Interpretation [...] due ALKP) to change in reagent. LACTIC [id number] 12:08:00 Test Item Value Reference Range Interpretation Comments LACTIC ACID (test 2.1 mmol/L 0.4-1.9 HH Results ca lled to code = LACT) [id number] by 2IRD 4988 12/31/21 1208Cr itical results verifie d and read back by Darlyn jean baptiste? Y FOR ALL ICU PATIENT EXCLUDING HOLD PLEASE CALL [phone] CBC W/AUTO [id number] 11:58:00 Test Item Value Reference Range Interpretation [...] = 0.00 K/mm3 0.0-0.1 N NRBC#) POC [id number] 16:17:00 Test Item Value Reference Range Interpretation Comments POC glucose (test code 238 mg/dL 65-100 [facility] = 57092-5) FrancoDevice ID : [id number] Lab Interpretation Abnormal (test code = 61153-6) [facility] [id number] 16:17:00 Test Item Value Reference Range Interpretation Comments POC glucose (test code 238 mg/dL 65-100 H [facility] Name: [facility] = 10889-2) FrancoDevice ID : [id number] Lab Interpretation Abnormal (test code = 23444-4) [facility] [id number] 11:12:00 Test Item Value Reference Range Interpretation Comments Urine culture Mixed yadi Specimen isolate (test <=10-3 col/cc InformationSp ecimen code = 53445-8) Source: [facility] Site: [facility]2022-08-24 11:12:00 Test Item Value Reference Range Interpretation Comments Urine culture Mixed yadi Specimen isolate (test <=10-3 col/cc InformationSp ecimen code = 99553-3) Source: [facility] Site: [facility]2022-08-24 11:12:00 Test Item Value Reference Range Interpretation Comments Urine culture Mixed yadi Specimen isolate (test <=10-3 col/cc InformationSp ecimen code = 94175-6) Source: [facility] Site: [facility]2022-08-24 11:12:00 Test Item Value Reference Range Interpretation Comments Urine culture Mixed yadi Specimen isolate (test <=10-3 col/cc InformationSp ecimen code = 17311-1) Source: [facility] Site: [facility]2022-08-24 11:12:00 Test Item Value Reference Range Interpretation Comments Urine culture Mixed yadi Specimen isolate (test <=10-3 col/cc InformationSp ecimen code = 78779-5) Source: [facility] Site: [facility]2022-08-24 11:12:00 Test Item Value Reference Range Interpretation Comments Urine culture Mixed yadi Specimen isolate (test <=10-3 col/cc InformationSp ecimen code = 14192-5) Source: [facility] Site: [facility]2022-08-24 11:12:00 Test Item Value Reference Range Interpretation Comments Urine culture Mixed yadi Specimen isolate (test <=10-3 col/cc InformationSp ecimen code = 22691-6) Source: [facility] Site: [facility]2022-08-24 11:12:00 Test Item Value Reference Range Interpretation Comments Urine culture Mixed yadi Specimen isolate (test <=10-3 col/cc InformationSp ecimen code = 01936-2) Source: [facility] Site: [facility]2022-08-24 11:12:00 Test Item Value Reference Range Interpretation Comments Urine culture Mixed yadi Specimen isolate (test <=10-3 col/cc InformationSp ecimen code = 20374-5) Source: Urin eSpecimen Site: Clean cat [facility] [id number] 11:12:00 Test Item Value Reference Range Interpretation Comments Urine culture Mixed yadi Specimen isolate (test <=10-3 col/cc InformationSp ecimen code = 16029-7) Source: [facility]rin eSpecimen Site: Clean cat [facility] [id number] 11:12:00 Test Item Value Reference Range Interpretation Comments Urine culture Mixed yadi Specimen isolate (test <=10-3 col/cc InformationSp ecimen code = 31018-0) Source: [facility] RNA [Presence] in Respiratory specimen by LEILANI with probe [id number] 06:28:40 Test Item Value Reference Range Interpretation Comments SARS-CoV-2 (COVID-19) RNA Not detected [Presence] in Respiratory specimen by LEILANI with probe detection (test code = 39121-4) Whether patient is employed in a Unknown healthcare setting (test code = 15215-5) Whether the patient has symptoms Unknown related to condition of interest (test code = 33325-9) Whether the patient was Unknown hospitalized for condition of interest (test code = 79560-0) Whether the patient was admitted Unknown to intensive care unit (ICU) for condition of interest (test code = 37792-4) Whether patient resides in a Unknown congregate care setting (test code = 19377-7) status (test code = Unknown 58164-3) Date and time of symptom onset Unknown (test code = 04691-9) [facility] 12 [id number] 16:49:51 Test Item Value Reference Range Interpretation Comments Ventricular rate (test code = 253) Atrial rate (test code = 255) RI interval (test code = 266) QRSD interval [...] for Inferior infarct are no [facility]- [facility] [id number] 16:49:51 Test Item Value Reference Range Interpretation Comments Ventricular rate (test code = 253) Atrial rate (test code = 255) RI interval (test code = 266) QRSD interval [...] for Inferior infarct are no longer present- [facility] Preliminary Interpretation - Not an [id number] 04:49:00 Test Item Value Reference Range Interpretation Comments MOE (test code = MOE) Norberto Lanier FNP 10/11/2021 11:48 [facility] [place] [facility] [place] Interpretation - Not an OrderPerformed by: Norberto Lanier FNPAuthorized by: Fahad Anna MD ECG reviewed by ED Physician in the absence of a president and chief commercial officer: yes Interpretation: Interpretation: abnormal Rate: ECG rate: 83 ECG rate assessment: normal Rhythm: Rhythm: sinus rhythm Ectopy: Ectopy: none QRS: QRS axis: Normal QRS intervals: WideConduction: Conduction: abnormal Abnormal conduction: complete RBBB and LAFB ST segments: ST segments: NormalT waves: T waves: non-specific Lab Interpretation Abnormal (test code = 28107-6) [facility] ED Preliminary Interpretation - Not an [id number] 04:49:00 Test Item Value Reference Range Interpretation Comments MOE (test code = MOE) Norberto Lanier FNP 10/11/2021 11:48 [facility] Interpretation - Not an OrderPerformed by: Norberto Lanier FNPAuthorized by: Fahad Anna MD ECG reviewed by ED Physician in the absence of a president and chief commercial officer: yes Interpretation: Interpretation: abnormal Rate: ECG rate: 83 ECG rate assessment: normal Rhythm: Rhythm: sinus rhythm Ectopy: Ectopy: none QRS: QRS axis: Normal QRS intervals: WideConduction: Conduction: abnormal Abnormal conduction: complete RBBB and LAFB ST segments: ST segments: NormalT waves: T waves: non-specific Lab Interpretation Abnormal (test code = 01229-5) [facility] [id number] 18:34:00 Test Item Value Reference Range Interpretation Comments GLUBED (test code = 316 mg/dL 74-106 H Performe d by certified GLUBED) information systems operator at [facility] URINALYSIS [id number] 17:45:00 Test Item Value Reference Range Interpretation [...] Urine Source? Clean CatchDRUGS OF ABUSE SCREEN [id number] 17:45:00 Test Item Value Reference Range Interpretation Comments UR MDMA (test code = NEGATIVE NEGATIVE MDMAQLU) URN COCAINE (test code = NEGATIVE NEGATIVE [A utomated message] COCAURN) The system [employer] generated this result transmitted ref erence range: [...] NEGATIVE [A utomated message] OPIATURN) The system [employer] generated this result transmitted ref erence range: [...] [A utomated message] = METHAURN) The system [employer] generated this result transmitted ref erence range: <300 ng/ mL. The reference r maggi was not used to interpret this result as normal/abnor mal. Urine Source? Clean CatchBASIC METABOLIC [id number] 16:11:00 Test Item Value Reference Range Interpretation [...] >3 months. [Automated mess age] The system [employer] generated this result transmitted ref erence range: >=60. Th e reference range was not used to int erpret this result as normal/abnormal . CREATININE (test code 0.99 mg/dL 0.55-1.3 N = CREAT) BUN/CREATININE RATIO 15.2 10-20 N (test code = BUN/CREA) CALCIUM (test code = 8.1 mg/dL 8.0-10.5 N CA) [id number] 16:11:00 Test Item Value Reference Range Interpretation Comments TROPONIN-HS (test 5.1 pg/mL 0-60 N CAUTION: U nits of the code = TROPI) current test m ethodology (pg/mL)differ f rom the prior test meth odology (ng/mL) by a fa ctorof 1000. [id number] 16:11:00 Test Item Value Reference Range Interpretation Comments ALCOHOL (test code = 6 mg/dL 0.0-3.0 H ------- INTERPRET ALC) JAVI DATA NOTE: POSITIVE SCREEN ING RESULTS SHOULD BE CONSI DERED PRESUMPTIVE.WHE N COLLECTED FOR MEDICAL PUR POSES ONLY. SPECIMEN WILL N OTBE COLLECTED BY TOSHIAN OF CUSTODY.IF A CO NFIRMATION OF POSITIVE RES ULTS IS DESIRED, ACONFI RMATION TEST MUST BE RE QUESTED BY THE PHYSICIAN Rian T ANADDITIONAL ARGE TO THE PATIENT. CBC W/O [id number] 15:42:00 Test Item Value Reference Range Interpretation [...] N = MPV) - XR CHEST 1 [id number] 15:42:00 [facility])Name: HARJINDER COLUNGA : 1965 Sex: M FAX: Brennan Dupont [phone] [place]: [place] St: PRE Name: HARJINDER COLUNGA [facility] FSED : 1965 Age/S: 56/M [address] [facility] [address] Unit #: [id number] Loc: [facility] [address] Phys: Brennan Dupont MD [place], [place] [address] Acct: [id number] Dis Date: Status: PRE ER PHONE #: Exam Date: 08/06/2021 1541 FAX #: Reason: WEAKNESS EXAMS: CPT CODE: [id number] XR CHEST 1 V 64387 REASON FOR EXAM: WEAKNESS Exam Order Date: 08/06/2021 3:22 PM Ordering MJacque: Brennan Dupont MD PROCEDURE: - XR CHEST 1 V COMPARISON: 06/28/2020 FINDINGS: Lines/Tubes: None The lungs are clear. There is no pleural effusion or pneumothorax. Pulmonary vascularity is within normal limits. Cardiomediastinal silhouette and mediastinal contours are unchanged when accounting for differences in technique. Musculoskeletal structures and visualized portions of the upper abdomen are also unchanged. IMPRESSION: No acute cardiopulmonary process. Location: [facility] at 1542 Reported and signed by: Ramu Ramos M.D. CC: Brennan Dupont MD Technologist: Jonathan Herndon RT(R)(CT) Trnscrd Date/Time/By: 08/06/2021 (1542) : By: [email or web address] Orig Print D/T: S: 08/06/2021 (9963) PAGE 1 Signed ReportLone Star Glucose -- Point of Care Meters (87377) 2021-06-29 00:00:00 Test Item Value Reference Range Interpretation Comments BLOOD GLUCOSE-HOME MONITOR (test code = 266 70-110 A 23342-2) [id number] 16:34:00 Test Item Value Reference Range Interpretation Comments TROPONIN-I (test code = TROPI) <0.015 ng/mL 0.00-0.056 N URINALYSIS [id number] 15:41:00 Test Item Value Reference Range Interpretation [...] HPF NONE BACU) Urine Source? Clean CatchURINALYSIS [id number] 15:39:00 Test Item Value Reference Range Interpretation [...] Urine Source? Clean Catch- CT HEAD/BRAIN W/O [id number] 13:23:00 [facility])Name: HARJINDER COLUNGA : 1965 Sex: M Name: HARJINDER COLUNGA [facility] FSED : 1965 Age/S: 55 / M [address] #: [id number] Loc: [address] Phys: Jerry Roa MD [place], [place] [address] Acct: [id number] DisDate: Status: REG ER PHONE #: Exam Date: 12/24/2020 8592 FAX #: Reason: dizzy EXAMS: CPT CODE: [id number] CT HEAD/BRAIN W/O CONT 25978 HISTORY: dizzy TECHNIQUE: Noncontrast 2.[address] of the head.Examination acquired within 24 hours of arrival. One or more of the following dose reduction techniques were used: Automated exposure control, adjustment of the mA and/or kV according to patient size,and/or utilization of iterative reconstruction technique. DLP 574 mGy-cm. COMPARISON: 12/12/14 FINDING S: No acute hemorrhage. No CT evidence of [...] 1 Signed Report (CONTINUED) Name: HARJINDER COLUNGA [facility] FSED : 1965 Age/S: 55 / M [address] [facility] Unit #: [id number] Loc: [address] Phys: Jerry Roa MD [place], [place] [address] Acct: [id number] Dis Date: Status: REG ER PHONE #: Exam Date: 12/24/2020 1305 FAX #: Reason: dizzy EXAMS: CPT CODE: [id number] CT HEAD/BRAIN W/O CONT 32088 (Continued) CC: Hermelindo Roa Technologist:Vicky Saba RT(R)(CT) CTDI: DLP: Trnscb Date/Time: 12/24/2020 (1323) BradyP1 Orig Print D/T: S: 12/24/2020 (1326) PAGE 2 Signed ReportBASIC METABOLIC [id number] 12:45:00 Test Item Value Reference Range Interpretation [...] >3 months. [Automated mess age] The system [employer] generated this result transmitted ref erence range: >=60. Th e reference range was not used to int erpret this result as normal/abnormal . CREATININE (test 0.77 mg/dL 0.55-1.3 N code = CREAT) BUN/CREATININE RATIO 20.8 - H (test code = BUN/CREA) CALCIUM (test code = 8.1 mg/dL 8.0-10.5 N CA) [id number] 12:45:00 Test Item Value Reference Range Interpretation Comments TROPONIN-I (test code = TROPI) <0.015 ng/mL 0.00-0.056 N CREATINE KINASE (CK)2020-12-24 12:43:00 Test Item Value Reference Range Interpretation Comments CREATINE KINASE (CK) (test code = CK) 38 U/L 39-308 L BASIC METABOLIC [id number] 12:37:00 Test Item Value Reference Range Interpretation [...] >3 months. [Automated mess age] The system [employer] generated this result transmitted ref erence range: >=60. Th e reference range was not used to int erpret this result as normal/abnormal . CREATININE (test 0.77 mg/dL 0.55-1.3 N code = CREAT) BUN/CREATININE RATIO 20.8 10-20 H (test code = BUN/CREA) CALCIUM (test code = 8.1 mg/dL 8.0-10.5 N CA) [id number] 12:37:00 Test Item Value Reference Range Interpretation Comments TROPONIN-I (test code = TROPI) pg/mL 0-45 CBC W/O [id number] 12:33:00 Test Item Value Reference Range Interpretation [...] code 9.3 fL 6.7-11.0 N = MPV) [id number] 09:02:00 Test Item Value Reference Range Interpretation Comments GLUBED (test code = GLUBED) 96 MG/DL 74-106 N [id number] 20:42:00 Test Item Value Reference Range Interpretation Comments GLUBED (test code = GLUBED) 213 MG/DL 74-106 H [id number] 16:51:00 Test Item Value Reference Range Interpretation Comments GLUBED (test code = GLUBED) 209 MG/DL 74-106 H [id number] 15:04:00 Test Item Value Reference Range Interpretation Comments GLUBED (test code = GLUBED) 215 MG/DL 74-106 H [id number] 14:45:00 Test Item Value Reference Range Interpretation Comments ACT-ISTAT (test code = ACTI) 213 SEC 74-125 H [id number] 14:14:00 Test Item Value Reference Range Interpretation Comments ACT-ISTAT (test code = ACTI) 274 SEC 74-125 H [id number] 14:13:00 Test Item Value Reference Range Interpretation Comments ACT-ISTAT (test code = ACTI) 241 SEC 74-125 H [id number] 08:29:00 Test Item Value Reference Range Interpretation Comments GLUBED (test code = GLUBED) 115 MG/DL 74-106 H [id number] 19:03:00 Test Item Value Reference Range Interpretation Comments GLUBED (test code = GLUBED) 143 MG/DL 74-106 H [id number] 16:36:00 Test Item Value Reference Range Interpretation Comments GLUBED (test code = GLUBED) 314 MG/DL 74-106 H [id number] 12:15:00 Test Item Value Reference Range Interpretation Comments GLUBED (test code = GLUBED) 130 MG/DL 74-106 H COVID 19 Asymptomatic IH [id number] 09:47:00 Test Item Value Reference Range Interpretation Comments COVID 19 Asymptomatic IH AG (test NEGATIVE Negative code = COVNONPUIAG) Spec Comments: PATIENT GOING TO CATH LABPROTHROMBIN [id number] 09:38:00 Test Item Value Reference Range Interpretation [...] Aspirin Enoxaprin (Lovenox)Spec Comments: PATIENT GOING TO TIRE TRUCKER 1, THROMBOPLASTIN TIME [id number] 09:38:00 Test Item Value Reference Range Interpretation Comments THROMBOPLASTIN TIME 27.1 SECONDS 23.4-37.0 N Therape utic Range PARTIAL (test code = for Hep audrey PTT) EFFECTIVE Heparin IU/mL a PTT Seconds0.3 64.3 0.7 88.8 IS PATIENT ON ANTICOAGULANTS ? 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 TO TIRE TRUCKER 1,GLUBED 2020-07-03 08:24:00 Test Item Value Reference Range Interpretation Comments GLUBED (test code = GLUBED) 135 MG/DL 74-106 H BASIC METABOLIC [id number] 06:53:00 Test Item Value Reference Range Interpretation [...] 9.1 mg/dL 8.4-10.2 N CA) CBC W/AUTO [id number] 06:42:00 Test Item Value Reference Range Interpretation [...] = BA#) 0.05 x10 3/uL 0.0-0.1 N [id number] 21:27:00 Test Item Value Reference Range Interpretation Comments GLUBED (test code = GLUBED) 234 MG/DL 74-106 H [id number] 16:22:00 Test Item Value Reference Range Interpretation Comments GLUBED (test code = GLUBED) 195 MG/DL 74-106 H [id number] 12:04:00 Test Item Value Reference Range Interpretation Comments GLUBED (test code = GLUBED) 179 MG/DL 74-106 H [id number] 08:51:00 Test Item Value Reference Range Interpretation Comments GLUBED (test code = GLUBED) 124 MG/DL 74-106 H [id number] 20:53:00 Test Item Value Reference Range Interpretation Comments GLUBED (test code = GLUBED) 129 MG/DL 74-106 H [id number] 18:30:00 Test Item Value Reference Range Interpretation Comments GLUBED (test code = GLUBED) 174 MG/DL 74-106 H [id number] 12:32:00 Test Item Value Reference Range Interpretation Comments GLUBED (test code = GLUBED) 152 MG/DL 74-106 H [id number] 08:40:00 Test Item Value Reference Range Interpretation Comments GLUBED (test code = GLUBED) 98 MG/DL 74-106 N [id number] 20:46:00 Test Item Value Reference Range Interpretation Comments GLUBED (test code = GLUBED) 110 MG/DL 74-106 H - DUP LE ART [id number] 18:07:00 [facility] : 1965 Sex: M FAX: Patrick Will Arm [phone] [place]: St: ADM FAX: Nathanael Romero Justine [phone] -------- Name: HARJINDER COLUNGA [facility] : 1965 Age/S: 55/M [address] Unit #: [id number] Loc: [address] [place] [address] Phys: RembertoPatrick mora DPM R2 Acct: [id number] Dis Date: Status: ADM IN PHONE #: [phone] Exam Date: 06/30/2020 173 FAX #: [phone] Reason: WOUNDS EXAMS: CPT CODE: [id number] [facility] LE ART [facility] [address] STUDY: Bilateral lower extremity ultrasound with Doppler. [...] 0.75. The RADHA: 0.74. IMPRESSION: Increased differential peaksystolic velocity for [...] Signed Report (CONTINUED) FAX: Patrick Sr Arm [phone] [place]: [facility]: ADM FAX: Nathanael Romero [phone] Name: HARJINDER COLUNGA [facility] : 1965 Age/S: 55/M [address] Unit #: [id number] Loc: [address] [place] [address] Phys: Patrick Sr DPM R2 Acct: [id number] Dis Date: Status: ADM IN PHONE #: [phone] Exam Date: 06/30/2020 1731 FAX #: [phone] Reason: WOUNDS EXAMS: CPT CODE: [id number] DUP LE ART [place] [address] <Continued> at 1807 Reported and signed by: Donaldo Wen MD CC: Patrick Sr DPM; Nathanael Laureano Technologist: MARK Gallardo Trnscrd Date/Time/By: 06/30/2020 (1806) : By: [email or web address] PAGE 2 Signed Report FAX: Patrick Sr Arm [phone] [place]: [facility]: ADM FAX: Karol Romero [phone] Name: HARJINDER COLUNGA [facility] : 1965 Age/S: 55/M [address] Unit #: [id number] Loc: [address] [place] [address] Phys: Patrick Sr DPM R2 Acct: [id number] Dis Date: Status: ADM IN PHONE #: [phone] Exam Date: 06/30/20201730 FAX #: [phone] Reason: WOUNDS EXAMS: CPT CODE: [id number] DUP LE ART [place] [address] <Continued> Orig Print D/T: S: 06/30/2020 (1810) PAGE 3 Signed Report- DOP ART 1-2 LEVELS [id number] 18:07:00 [facility] : 1965 Sex: M FAX: Patrick Ponce Arm [phone] [place]: St: ADM FAX: Pavel Hicks MD [phone] Name: HARJINDER COLUNGADOB: 1965 Age/S: 55/M [address] Unit #: [id number] Loc: [address] [place] [address] Phys: Patrick Sr DPM R2 Acct: [id number] Dis Date: Status: ADM IN PHONE #: [phone] Exam Date: 06/30/2020 173 FAX #: [phone] Reason: WOUNDS, HX OF SMOKING, NON PALP PULSES EXAMS: CPT CODE: [id number] DOP ART 1-2 LEVELS [facility] [address] STUDY: Bilateral lower extremity ultrasound with Doppler. [...] distal to the common femoral artery indicative ofsignificant stenosis between these arteries. Left infrapopliteal artery monophasic waveforms consiste nt with significant arterial disease distal to the popliteal artery. Bilateral RADHA values compatible with moderate arterial disease. PAGE 1 Signed Report (CONTINUED) FAX: Patrick Sr Arm [phone] [place]: St: ADM FAX: Pavel Hicks MD [phone] Name: HARJINDER COLUNGAwood : 1965 Age/S: 55/[address] Unit #: [id number] Loc: [address] [place] [address] Phys: Patrick Sr DPM R2Acct: [id number] Dis Date: Status: ADM IN PHONE #: [phone] Exam Date: 06/30/2020 173 FAX #: [phone] Reason: WOUNDS, HX OF SMOKING, NON PALP PULSES EXAMS: CPT CODE: [id number] DOP ART 1-2 LEVELS [place] [address] <Continued> at 1807 Reported and signed by: Donaldo Wen MD CC: Patrick Sr DPM; Pavel Muñoz MD Technologist: MARK Gallardo Date/Time/By: 06/30/2020 (1806) : By: [email or web address] PAGE 2 Signed Report FAX: Patrick Sr Arm [phone] [place]: St: ADM FAX: Pavel Hicks MD [phone] -------- Name: HARJINDER COLUNGAwood : 1965 Age/S: 55/M [address] Unit #: [id number] Loc: [address] [place] [address] Phys: Patrick Sr DPM R2 Acct: [id number] Dis Date: Status: ADM IN PHONE #: [phone] Exam Date: 06/30/2020 173 FAX #: [phone] Reason: WOUNDS, HX OF SMOKING, NON PALP PULSES EXAMS:CPT CODE: [id number] DOP ART 1-2 LEVELS PETER [address] <Continued> Orig Print D/T: S: 06/30/2020 (1810) PAGE 3 Signed [id number] 16:25:00 Test Item Value Reference Range Interpretation Comments GLUBED (test code = GLUBED) 244 MG/DL 74-106 H [id number] 12:16:00 Test Item Value Reference Range Interpretation Comments GLUBED (test code = GLUBED) 246 MG/DL 74-106 H [id number] 08:54:00 Test Item Value Reference Range Interpretation Comments GLUBED (test code = GLUBED) 172 MG/DL 74-106 H [id number] 21:00:00 Test Item Value Reference Range Interpretation Comments GLUBED (test code = GLUBED) 118 MG/DL 74-106 H [id number] 15:58:00 Test Item Value Reference Range Interpretation Comments GLUBED (test code = GLUBED) 249 MG/DL 74-106 H [id number] 12:28:00 Test Item Value Reference Range Interpretation Comments GLUBED (test code = GLUBED) 285 MG/DL 74-106 H - MRI LOW EXT W/O CONT [id number] 11:17:00 [facility] WOODName: HARJINDER COLUNGA : 1965 Sex: M FAX: Patrick Ponce [phone] [place]: St: ADM FAX: Pavel Hicks MD [phone] Name: [place]JINDER [place]GAwood : 1965 Age/S: 55/M [address] Unit #: [id number] Loc: [address] [place] [address] Phys: Patrick Sr DPM R2 Acct: [id number] Dis Date: Status: ADM IN PHONE #: [phone] Exam Date: 06/29/202059 FAX #: [phone] Reason: PETER le WOUNDS IN FORE FOOT EXAMS: CPT CODE: [id number] MRI [place] [address] EXAM: - MRI LOW EXT W/O CONT LT HISTORY: PETER le WOUNDS IN FORE FOOT, pain COMPARISON: None available at time of interpretation. TECHNIQUE: Multi sequential, multiplanarnoncontrast MR images of the left foot. FINDINGS: Bones: No areas of confluent T1 hypointensity ident ified. 4 mm subcortical cyst identified at the [...] MD Technologist: Wendy Agee Trnscrd Date/Time/By: 06/29/2020 (5625) : By: [email or web address] PAGE 1 Signed Report FAX: Patrick Sr Arm [phone] [place]: St: ADM FAX: Pavel Hicks MD [phone] Name: HARJINDER COLUNGA [facility] : 1965 Age/S: 55/M [address] Unit #: [id number] Loc: [address] [place] [address] Phys: Patrick Sr DPM R2 Acct: [id number] Dis Date: Status: ADM IN PHONE #: [phone] Exam Date: 06/29/2020 0959 FAX #: [phone] Reason: BILle WOUNDS IN FORE FOOT EXAMS: CPT CODE: [id number] [place] [address] <Continued> Orig Print D/T: S: 06/29/2020 (4847) PAGE 2 Signed Report- MRI LOW EXT W/O CONT RT 2020-06-29 10:16:00 [facility] : 1965 Sex: M FAX: Patrick Ponce Arm [phone] [place]: [facility]: ADM FAX: Pavel Hicks MD [phone] Name: HARJINDER COLUNGA [facility] piketonDOB: 1965 Age/S: 55/M [address] Unit #: [id number] Loc: [address] [place] [address] Phys: Patrick Sr DPM R2 Acct: [id number] Dis Date: Status: ADM IN PHONE #: [phone] Exam Date: 06/29/2020 0959 FAX #: [phone] Reason: PETER FOOT WOUNDS EXAMS: CPT CODE: [id number] MRI LOW EXT W/[place] [address] EXAM: - MRI LOW EXT W/O CONT RT HISTORY: PETER FOOT WOUNDS COMPARISON: None available at time of interpretation. TECHNIQUE: Multi sequential, multiplanar noncontrast MR images of theright foot. FINDINGS: Bones: No areas of confluent T1 hypointensity identified. Soft tissues: No drai nable fluid collection. Muscles/tendons: Small amount of fluid in the peroneus longus tendon sheath.IMPRESSION: No osteomyelitis. No drainable fluid collection. Mild peroneus longus tenosynovitis. at 1016 Reported and signed by: Michael Bai MD CC: Patrick Sr DPM; Pavel Muñoz MD Technologist: Wendy Agee [facility] Date/Time/By: 06/29/2020 (1016) : By: [email or web address] PAGE 1 Signed Report FAX: Patrick Sr Arm [phone] [place]: [facility]: ADM FAX: Pavel Hicks MD [phone] Name: HARJINDER COLUNGA : 1965 Age/S: 55/M [address] Unit #: [id number] Loc: [address] [place] [address] Phys: Patrick Sr DPVasquez R2 Acct: [id number] Dis Date: Status: ADM IN PHONE #: [phone] Exam Date: 06/29/2020 0959 FAX #: [phone] Reason: PETER FOOT WOUNDS EXAMS: CPT CODE: [id number] MRI [place] EXT W/[place] [address] <Continued> Orig Print D/T: S: 06/29/2020 (4140) PAGE 2 Signed ReportCOMPREHENSIVE METABOLIC [id number] 09:31:00 Test Item Value Reference Range Interpretation [...] N (test code = ALKP) COMPREHENSIVE METABOLIC [id number] 09:30:00 Test Item Value Reference Range Interpretation [...] U/L 38-126 N (test code = ALKP) [id number] 09:28:00 Test Item Value Reference Range Interpretation Comments GLUBED (test code = GLUBED) 184 MG/DL 74-106 H CBC W/AUTO [id number] 07:48:00 Test Item Value Reference Range Interpretation [...] BA#) 0.03 x10 3/uL 0.0-0.1 N SED [id number] 07:48:00 Test Item Value Reference Range Interpretation Comments SED RATE (test code = SEDW) 85 mm/hr 0-20 H HGBA1C - GLYCOSYLATED [id number] 07:08:00 Test Item Value Reference Range Interpretation [...] with these hemo globin variants. CBC W/AUTO [id number] 06:43:00 Test Item Value Reference Range Interpretation [...] BA#) 0.03 x10 3/uL 0.0-0.1 N SED [id number] 06:43:00 Test Item Value Reference Range Interpretation [...] Guidelines:~~~~ ~~~~~ ~~~~~~~~~~~~~~~ ~~~~~ ~~~~~~~~~~~~~~~ ~~~~~ ~~~~~~~~~~~ HDL Cholesterol<4 0mg/d L: HDL Choleste rol (Major risk fac tor for CHD)>60mg/d L: HDL Cholesterol (Negative risk factor for CHD)40-59mg/dL: Borderline Risk LDL Cholesterol<1 00mg/ dL: Desirable L DL-C epjppcnqjrvqt36 0-159 mg/dL: Borderli ne High Risk LDL-C cazmilidbcaqo92 0-189 mg/dL: High ris k LDL-C concentra tion HDL-LDL Cholest adi is affected by a number of facto rs suchas smoking, age and sex.~~~~~~~~~~~ ~~~~~ ~~~~~~~~~~~~~~~ ~~~~~ ~~~~~~~~~~~~~~~ ~~~~~ ~~~~ C REACTIVE [id number] 05:49:00 Test Item Value Reference Range Interpretation [...] LDL Cholesterol<1 00mg/dL : Desirable LDL -C ngmvgtbrvefpy92 0-159mg /dL: Borderline High Risk LDL-C aaitvtvwjobuh36 0-189mg /dL: High risk LDL-C concentration H DL-LDL Cholesterol is affected by a n umber of factors such as smoking, age an d sex.~~~~~~~~~~~ ~~~~~~~ ~~~~~~~~~~~~~~~ ~~~~~~~ ~~~~~~~~~~~~~~~ ~~~~~ C REACTIVE [id number] 05:42:00 Test Item Value Reference Range Interpretation Comments C REACTIVE PROTEIN (test code = 51.3 mg/L 0-9 H CRP) [id number] 20:47:00 Test Item Value Reference Range Interpretation Comments GLUBED (test code = GLUBED) 253 MG/DL 74-106 H BASIC METABOLIC [id number] 17:16:00 Test Item Value Reference Range Interpretation Comments SODIUM (test code = 130 mmol/L 137-145 L NA) POTASSIUM (test code 4.6 mmol/L 3.4-5.0 N = K) CHLORIDE (test code = 93 mmol/L 98-107 L CL) CARBON DIOXIDE (test 29 mmol/L 22-30 N code = CO2) GLUCOSE (test code = 404 mg/dL 74-106 HH Critica l Value GLU) [facility] Name:[id number] [facility] Name:RESULTS RE AD BACK AND VERIFIEDby C.LAB.AC2, [...] 9.1 mg/dL 8.4-10.2 N CA) LIVER FUNCTION [id number] 17:16:00 Test Item Value Reference Range Interpretation [...] 38-126 N (test code = ALKP) LACTIC [id number] 17:04:00 Test Item Value Reference Range Interpretation Comments LACTIC ACID (test code = LACT) 1.7 mmol/L 0.7-2.0 N - XR FOOT 3 + V [id number] 17:00:00 [facility] : 1965 Sex: M FAX: Giovany Landa MD R1 [place]: St: REG Name: HARJINDER COLUNGA [facility] : 1965 Age/S: 55/M [address] Unit #: [id number] Loc: [place] [address] Phys: Giovany Landa MD R1 Acct: [id number] Dis Date: Status: REG ER PHONE #: [phone] Exam Date: 06/28/2020 1649 FAX #: [phone] Reason: left foot wound EXAMS: CPT CODE: [id number] XR FOOT 3 + [place] [address] EXAM: - XR FOOT 3 + V LT HISTORY: left foot wound COMPARISON: None available time of interpretation. FINDINGS: Frontal, oblique, and lateral views of the left foot are provided. Chronic erosion in the 4th distal phalanx. No osseous erosion, periosteal r eaction, or local demineralization is noted to suggest the presence of infection. Vascular calcifications are noted. IMPRESSION: No radiographic evidence of osteomyelitis. If indicated, a bone scan orMRI are more sensitive for the detection of osteomyelitis. at 1700 Reported and signed by: Michael Bai MD CC: Giovany Landa MD Technologist: Lindsey Ha; STUDENT 2ND YEAR Trnscrd Date/Time/By: 06/28/2020 (1700) : By: [email or web address] PAGE 1Signed Report FAX: Giovany Landa MD R1 [place]: St: REG Name: HARJINDER COLUNGA [facility] : 1965 Age/S: 55/M [address] Unit #: [id number] Loc: [place] [address] Phys: Giovany Landa MD R1 Acct: [id number] Dis Date: Status: REG ER PHONE #: [phone] Exam Date: 06/28/2020 1649 FAX #: [phone] Reason: left foot wound EXAMS: CPT CODE: [id number] XR FOOT 3 + V [place] [address] <Continued> Orig Print D/T: S: 06/28/2020 (7148) PAGE 2 Signed ReportUA RFLX MICR CULT IF [id number] 16:19:00 Test Item Value Reference Range Interpretation [...] oth srcSOURCE OF URINE: CLEAN CATCHCBC W/AUTO [id number] 15:48:00 Test Item Value Reference Range Interpretation [...] 3/uL 0.0-0.1 N - XR CHEST 1 [id number] 15:36:[address] [facility] : 1965 Sex: M FAX: Mi Ellis NP [place]: [facility]: PRE --------- Name: HARJINDER COLUNGA [facility] : 1965 Age/S: 55/M [address] Unit #: [id number] Loc: [place] [address] Phys: Mi Ellis NP Acct: [id number] Dis Date: Status: PRE ER PHONE #: [phone] Exam Date: 06/28/2020 1533 FAX #: [phone] Reason: CODE SEPSIS EXAMS: CPT CODE: [id number] XR CHEST 1 V 80651 EXAMINATION: Frontal chest radiograph INDICATION: Code sepsis COMPARISON: 02/27/2016 FINDINGS: Clear lungs. No pleural effusion or pneumothorax. Normal cardiomediastinal silhouette. IMPRESSION: No acute abnormality identified. at 1536 Reported and signed by: Richard Linda M.D. CC: Mi Ellis NP Technologist:Lindsey Ha; STUDENT 2ND YEAR [facility] Date/Time/By: 06/28/2020 (1536) : By: [email or web address] PAGE 1 Signed Report FAX: Mi Ellis NP [place]: [facility]: PRE Name: HARJINDER COLUNGA [facility] : 1965 Age/S: 55/M [address] Unit #: [id number] Loc: [place] [address] Phys: Mi Ellis NP Acct: [id number] Dis Date: Status: PRE ER PHONE #: [phone] Exam Date: 06/28/2020 1533 FAX #: [phone] Reason: CODE SEPSIS EXAMS: CPT CODE: [id number] XR CHEST 1 V 85723 <Continued> Orig Print D/T: S: 06/28/2020 (0605) PAGE 2 Signed Report- US EXTREM NON VASC [id number] 15:47:00[facility] HARJINDER COLUNGA : 1965 Sex: M Patient Name: HARJINDER COLUNGA Unit No: [id number] EXAMS: CPT CODE: [id number] US EXTREM NON VASC LTD 77902 HISTORY: Infection Location: C3 FINDINGS: Sonographic images of the leg were obtained. No soft tissue fluid collection demonstrated. No cystic or solid mass identified. IMPRESSION: 1. Soft tissue edema without discrete dominant fluid collection or cystic or solid mass lesion. at 1547 Reported and signed by: Donaldo Tang M.D. CC: Rod Cerda NP Technologist: Ely Lopez RDMS Trnscrbd D/ (1547) MerRXC2 Probe: [id number] Orig Print D/T: S: 02/27/2020 (1550) Probe: ELEANOR Vielka NAME: HARJINDER COLUNGA [address] [place], [place] [address]Blvd PHYS: JOSE MARIA - Rod Cerda, [place] [address] : 1965 AGE: 54 SEX: M LOC: VANNA PHONE #: [phone] EXAM DATE: 02/27/2020 STATUS: REG ER FAX #: [phone] RAD NO: Page 1 Signed ReportBASIC METABOLIC [id number] 15:20:00 Test Item Value Reference Range Interpretation [...] NORMAL code = LIPINDEX) Index/DL GLUCOSE BEDSIDE [id number] 14:32:00 Test Item Value Reference Range Interpretation Comments GLUCOSE BEDSIDE 459 MG/DL 70-119 HH LOW/HIGH KVNG RT VALUE - TESTING (test code = ACTION REQUIRED GLUBED) - CT ABD PELVIS W/O [id number] 16:45:00 Name: [facility] : 1965 Age/S: 54 / M [address] #: [id number] Loc: [address] Phys: Brennan Dupont MD [place], [place] [address] Acct: [id number] Dis Date: Status: REG ER PHONE #: Exam Date: 10/08/2019 2999 FAX #: Reason: R sided flan pain EXAMS: CPT CODE: [id number] CT ABD PELVIS W/O CONT 34349 EXAM: CT of the abdomen and pelvis [...] acute abdominal or pelvic abnormalities. Location code: [facility] at 1645 Reported and signed by: Feliciano Mcdaniel M.D. 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 (test code = UAMICRO) COMPREHENSIVE METABOLIC [id number] 13:06:00 Test Item Value Reference Range Interpretation [...] 50-139 N code = ALKP) CBC W/AUTO [id number] 12:54:00 Test Item Value Reference Range Interpretation [...] REQUIRED (test code NO = MDIFF) CHEM [id number] 14:06:001.11Memoriri HermannCHEM [id number] 14:06:0078 [facility] MopoetaXOBDRIXMAK9212-72-04 14:06:72339Lampjwjk HermannHEMATOLOGY 2016-01-03 14:06:00 Test Item Value Reference Range Interpretation Comments PTT (test code = PTT) 24.1 s 22.9-35.8 [facility] HnmhxesCEYYZQAMQR5648-26-59 06:35:004.52[facility] HermannHEMATOLOGY 2016-01-03 06:35:0013.3[facility] PfctmaaNADSIKOAMA9024-37-06 06:35:009.9[facility] RehwgmeMPDPZCLKUD4955-77-86 06:35:002.6[facility] EhwkqvbHESLXSTCKH2556-01-13 06:35:00Normal (01/03/16 1:35 AM)[facility] CxdwxbkCTNFEYVVNG1291-99-13 06:35:00 Normal (01/03/16 1:35 AM)[facility] YqygvwsXYLNPHFWEX4519-30-13 06:35:0019.4 [facility] HxwldcjPJUTIZOVYA0057-86-25 06:35:0074.2[facility] HermannHEMATOLOGY 2016-01-03 06:35:000.1[facility] NyglvibTZNLTRLGCK7469-66-26 06:35:000.7[facility] UdfjklpZPHCQHULQN4132-53-11 06:35:000.1[facility] ThwtijmXJZDUGYXBF6633-91-62 06:35:000.6[facility] BfwhzutUKCMPBNKHD5711-71-12 06:35:000.8[facility] PFMHKNDYUU1601-96-71 06:35:005.0[facility] HermannCARDIAC HWQNRXE4598-79-07 06:35:0047[facility] HermannCARDIAC CFKKPVQ5417-11-70 06:35:0011[facility] CHEM IXSUN4061-16-15 06:35:59342Ruxytbor HermannCHEM YFMZI9101-65-30 06:35:00 13.5[facility] HermannCHEM AHAVT6556-14-64 06:35:0024[facility] HermannCHEM PANEL 2016-01-03 06:35:003.5[facility] HermannCHEM SJFDL0146-39-19 06:35:003.1[facility] HermannCHEM PDENB0431-30-21 06:35:35155Zflawddy HermannCHEM MRIAT8017-76-72 06:35:16951Xgwvtyuh HermannCHEM LIZGX3341-86-13 06:35:008.2[facility] HermannCHEM NWYWJ0137-18-55 06:35:009[facility] HermannCHEM IMOYQ1599-79-77 06:35:006.3 [facility] HermannCHEM PVZKO5177-20-80 06:35:003.2[facility] HermannCHEM PANEL 2016-01-03 06:35:0061[facility] HermannCHEM FBNQE2958-83-24 06:35:000.5[facility] HermannCHEM FOREP3506-89-84 06:35:0011[facility] HermannCHEM YPTSG3378-30-59 06:35:001.0[facility] HermannCHEM RWNYG5791-47-28 06:35:0022[facility] HermannCHEM HAEGI6535-04-54 06:35:000.88[facility] HermannCHEM AVDXG2343-58-30 06:35:008 [facility] HermannCHEM HMXLX4985-77-08 06:35:70443Rbyimoxi HermannCHEM PANEL 2016-01-03 06:35:001.8[facility] FlpeokfULHMSYVOXU7823-96-16 06:35:007.9[facility] SzyrzyqJIEOPDYONA4023-89-54 06:35:83424Qojgxsys NzfbhioQFIBTXCWGN1183-51-70 06:35:0034.8[facility] ZlmvxuvNNAWLGMPGC5357-98-78 06:35:00 Test Item Value Reference Range Interpretation Comments MCH (test code = MCH) 30.9 pg 27.0-31.0 [facility] MbvdviwTVEBDSUEIF0038-85-28 06:35:0088.8[facility] HermannHEMATOLOGY 2016-01-03 06:35:0040.2[facility] VkjsilqILGUZANTWP2390-73-62 06:35:0014.0[facility] NpyahukJGGNCNAVVX4612-70-93 06:35:0012.8[facility] HermannCHEM FJAVK6699-33-67 10:18:008.1[facility] HermannCHEM FZSTV9464-97-02 10:18:0026[facility] HermannCHEM CAKRN9338-95-26 10:18:94931Myrantac HermannCHEM VTLUC0190-71-96 10:18:009 [facility] HermannCHEM LBQAF7195-38-12 10:18:004.0[facility] HermannCHEM PANEL 2015-12-19 10:18:82858Nvgjnunm HermannCHEM MFIKB3147-84-72 10:18:69535Unjmoldy HermannCHEM GQRDX9548-10-76 10:18:11792Uaubhtza HermannCHEM MWWAO1668-55-23 10:18:000.76[facility] HermannCHEM RUUKN4289-47-08 10:18:0012.0[facility] DPUJIZZTGB6421-59-91 10:18:00 Test Item Value Reference Range Interpretation Comments MCH (test code = MCH) 30.4 pg 27.0-31.0 [facility] YensiqrTBANQIOUEM2765-90-61 10:18:83929Foezmfzq HermannHEMATOLOGY 2015-12-19 10:18:0034.3[facility] GitqztdHJJXQMRCMX8427-12-79 10:18:008.2[facility] OzqrdahRUBKOMKVVY0468-96-76 10:18:0012.4[facility] NfelrxmORFYHYIBAJ6230-73-36 10:18:0010.3[facility] VzqbrmoWDJREHIMGD4082-78-85 10:18:004.51[facility] CJLDQWYJPT9299-41-59 10:18:0088.7[facility] RzjdoawQHTVVVIHYW8852-01-70 10:18:00 13.7[facility] WxqhsdsHOBXDNGJUJ3173-57-51 10:18:0040.0[facility] HermannHEMATOLOGY 2015-12-19 10:18:0018.9[facility] UfxkpliYQLZGFDFSW0429-50-00 10:18:0073.5[facility] VcidtuiJLKOGQJXCZ8050-70-75 10:18:006.7[facility] ClfuzptROBWYLOJDN6534-50-17 10:18:007.6[facility] UxdxmjmCBXOWYCIKQ2348-67-75 10:18:000.4[facility] DNUEMJUKEQ2778-18-55 10:18:000.0[facility] PrbiilwVWBAMGHMRB9359-94-25 10:18:000.7 [facility] JxppyglCOOOPSOVWT7307-75-69 10:18:000.5[facility] HermannHEMATOLOGY 2015-12-19 10:18:001.9[facility] RbwpygvTKMESAVKHK9017-71-88 10:18:000.0[facility] HermannCHEM GUHPP3791-73-31 04:30:0090[facility] HermannCHEM NLKBR1787-67-92 04:30:007.8[facility] HermannCHEM ZZBBO0028-29-50 04:30:000.6[facility] HermannCHEM GLVBR1121-60-95 04:30:0062[facility] HermannCHEM EEOSK5627-34-83 04:30:0010 [facility] HermannCHEM BKVLN9151-82-60 04:30:0013.0[facility] HermannCHEM PANEL 2015-12-13 04:30:0024[facility] HermannCHEM RYNNP7046-00-26 04:30:001.34[facility] HermannCHEM PSYZM7162-43-55 04:30:36768Gupjpohb HermannCHEM WJTPL3880-35-36 04:30:0015[facility] HermannCHEM QAVWQ2414-06-28 04:30:0017[facility] HermannCHEM KTOXL5998-55-62 04:30:003.7[facility] HermannCHEM IBNFY0091-79-77 04:30:0011 [facility] HermannCHEM WQYYA4807-28-61 04:30:004.0[facility] HermannCHEM PANEL 2015-12-13 04:30:008.6[facility] HermannCHEM BMACC4099-85-36 04:30:55470Nnkjgdgu HermannCHEM WSYYS9110-97-79 04:30:0099[facility] HermannCHEM RXDHQ7111-13-36 04:30:004.1[facility] HermannCHEM TVBBP9319-87-42 04:30:000.9[facility] EDXGUWYCAZ8518-61-46 04:30:000.4[facility] VujhusjFSRVJEJMAD2701-62-35 04:30:000.0 [facility] RxvuwfvNBIIZQMQPS5321-47-22 04:30:001.3[facility] HermannHEMATOLOGY 2015-12-13 04:30:006.1[facility] XerltbqUGMVSIEUSH8166-05-45 04:30:000.3[facility] CaxunswEOGNYQHYBM7215-08-53 04:30:000.4[facility] TqipuhrAORYXCDFMY6018-54-42 04:30:005.5[facility] FfstjhfLBZBUUZIFM6149-86-29 04:30:0077.4[facility] KTGYYLNGTA2265-98-98 04:30:0016.4[facility] ZlktiroGTVNPWVJLQ9361-69-35 04:30:00 340[facility] SytygvrBVOCJKEISK7369-64-25 04:30:008.4[facility] HermannHEMATOLOGY 2015-12-13 04:30:0034.2[facility] MzipmmdJZTXJHGOBM8547-83-08 04:30:0012.8[facility] MoprvsoHENQQOXWKJ4666-36-80 04:30:0015.3[facility] JqowzrvNMYZUSFTVN5264-02-78 04:30:0044.7[facility] TimskezNETEZQFFUM0186-86-64 04:30:00 Test Item Value Reference Range Interpretation Comments MCH (test code = MCH) 30.6 pg 27.0-31.0 [facility] LshrmwvXWTOJEWTNT3430-14-82 04:30:0089.4[facility] HermannHEMATOLOGY 2015-12-13 04:30:007.9[facility] NrtoljtBPYGOJJUCN5752-73-90 04:30:004.99[facility] AidsqipSKCMNOGZYH9794-95-93 04:30:00<2[facility] GxwjjjsGPYLYPDHRW1959-80-53 04:30:00<0.003[facility] HhjvzlrPOMQABXABD9392-99-41 04:30:00<3[facility] NzpvcthEMKNSINTRU0234-73-66 04:30:004.1[facility] Notes Date/Time Note Provider Source 2022-12-10 Formatting of this note might be differe nt from the original. Montserrat Hopkins MA [facility] 11:11:00-00:00 Notification placed to be sc anned medical records file. Notification forms were not initial by provider after receiving them back. Electronically signed by Montserrat Hopkins MA a t 12/10/2022 11:11 AM CDT 2022-12-05 [facility] 14:46:32-00:00 Patient called stating he is needing a refill on all of his medications excepts his seizure medication. He was seen at the ER @ [facility] in [place] yesterday. The best call back number is [phone]. Electronically signed by Saray Basilio MA at 0 12/05/2022 2:53 PM CDT 2022-11-14 Formatting of this note might be differe nt from the original. Dahiana Garcia RN [facility] 10:52:03-00:00 Notification from [facility] drug-disease interaction. Metformin and CHF Placed in providers folder for review Electronically signed by Dahiana Garcia RN at 0 11/14/2022 10:55 AM CDT 2022-02-17 [id number] [facility] 16:00:00-00:00 PATIENT NAME: HARJINDER COLUNGA ADMIT DATE: 01/01/22 ACCOUNT NO: [id number] ROOM NO: [id number] AGE: 56 REPORT TYPE: 360 - QUERY RESPONSE DOCUMENT SEX: M DATE OF : 69 ADMITTING PHYSICIAN:Ab Lucas MD ATTENDING PHYSICIAN:Ab Lucas MD Provider Query QUERY TEXT: Relationship Diagnoses General 360MD Query related questions should be directed to:[facility] [place]pl[place] Please clarify the relationship, [...] Query related questions should be directed to:[facility] [place]oding Query Helpline Based on your clinical judgment, can you provide the known or suspected condition(s) that represent(s) the clinical indicators listed below and if the condition(s) are present on admission (POA)? The following definitions are provided based on industry literature and in collaboration with [facility] for your reference [...] 1600 PATIENT NAME: HARJINDER COLUNGA 966 2022-01-05 [facility] 10:29:00-00:00 [facility] ([facility]) Discharge Summary REPORT#:[id number] REPORT STATUS: Signed DATE:01/05/22 TIME: 1029 PATIENT: HARJINDER COLUNGA UNIT #: [id number] ROOM[facility]BED: [facility] : [birth year] AGE: 56 SEX: M ATTEND: Zoya Lucas MD ADM AUTHOR: Armida Marmolejo NP * ALL edits or amendments must be made on the el ectronic/computer document * PCP PCP PCP: PCP: Dr. Jhon Jones Discharge to: home General Information Problem List/A P: 1. Cellulitis of left anterior lower leg 2. Uncontrolled type 2 diabetes mellitus with h yperglycemia, with long-term current use of insulin 3. Well-controlled hypertension 4. Tobacco use disorder 5. Hyperlipidemia due to type 2 diabetes [facility] 6. Ambulatory dysfunction 7. Hypomagnesemia [...] 2 DM with hyperglycemia, wi th terminal gauger current use of insulin blindness- 12/31 Serum glucose 216. HbA1C ordered. Maintain nutritional support with ADA diet. Monitor FSBG ac hs. Home dose of Lantus Insulin 15u q hs; medium dose sliding scale insu osiris. 3. Controlled HTN- Admit BP 137/77; home dose of Losartan resumed. Monitor BP. 4. Tobacco Use Disorder with 40 pack years, screw cutter alexander cough- Smoked 1 PPD from age [...] 7. Acute Hypomagnesemia- Mg 1.7; repleted with one gram Magnesium Oxide PO. Monitor magnesium level. Ppx: Pepcid, Lovenox DNR status per patient preference. H P, Obs, 73268, > 70 mins 01/01/22 1. Cellulitis Left [...] Type 2 DM with hyperglycemia, wi th long-term current use of insulin, blindness- 12/31 Serum glucose 216. 01/01 YfQ2V=39.1. Maintain nutritional support with ADA diet. Monitor [...] Lovenox DNR status per patient preference. Inpatient, 13326, > 35 mins 01/02/22 1. Cellulitis Left Anterior Lower Extremity- Cellulitis slowly improving. Pt is on tramadol as needed for pa in management. On IV vancomycin and zosyn. Pharmacy following for vancomycin dosing. 2. Uncontrolled Type 2 DM with hyperglycemia, wi th long-term current use of insulin, blindness- 01/01 PkA1S=40.1. On lantus insulin just titrated the dose [...] Pepcid, Lovenox DNR status per patient preference. 35519, > 35 mins 01/03/22 1. Cellulitis Left Anterior Lower Extremity- Cellulitis slowly improving. Pt is on tramadol as needed for pain management. pienda ed vancomycin and zosyn to Unasyn. 2. Uncontrolled Type 2 DM with hyperglycemia, wi th terminal gauger current use of insulin, blindness- 01/01 LnJ1D=93.1. On lantus i nsulin , BG 155. continue to monitor BG ac and hs 3. Controlled HTN- on Losartan , Monitor BP. 4. Tobacco Use Disorder with 40 pack years, use of smokeless tobacco, chronic cough- Continue nicotine patch 5. 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 Ppx: Pepcid, Lovenox DNR status per patient preference. 22084, > 35 mins 01/04/22 1. Cellulitis Left Anterior Lower Extremity- Jaqueline lulitis improving. Pt is on tramadol as needed for pain management. On Unasy n. 2. Uncontrolled Type 2 DM with hyperglycemia, wi th long-term current use of insulin, blindness- 01/01 CoG2C=67.1. On lantus i nsulin , BG 155. continue to monitor BG ac and hs 3. Controlled HTN- on Losartan , Monitor BP. 4. Tobacco Use Disorder with 40 pack years, use of smokeless tobacco, chronic cough- Continue nicotine patch 5. 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 Ppx: Pepcid, Lovenox DNR status per patient preference. 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 Note REPORT#:[id number] REPORT STATUS: Signed DATE:01/04/22 TIME: 2123 PATIENT: HARJINDER COLUNGA UNIT #: [id number] ROOM/BED: [address] : [birth year] AGE: 56 SEX: M ATTEND: Zoya Lucas MD ADM AUTHOR: Armida Marmolejo NP * ALL edits or amendments must be made on the [employer]/computer document * Subjective Chief complaint: Left Leg [...] edema Musculoskeletal: no muscle spasm, Right BKA Neuro/PRODUCE FIELD MERCHANDISER: alert, oriented x 3, CNII-XII intact, normal [...] 5. Hyperlipidemia due to type 2 diabetes [facility] 6. Ambulatory dysfunction 7. Hypomagnesemia [...] 2 DM with hyperglycemia, wi th terminal gauger current use of insulin blindness- 12/31 Serum glucose 216. HbA1C ordered. Maintain nutritional support with ADA diet. Monitor FSBG ac hs. Home dose of Lantus Insulin 15u q hs; medium dose sliding scale insu osiris. 3. Controlled HTN- Admit BP 137/77; home dose of Losartan resumed. Monitor BP. 4. Tobacco Use Disorder with 40 pack years, screw cutter alexander cough- Smoked 1 PPD from age [...] status per patient preference. H P, Obs, 76912, > 70 mins 01/01/22 1. Cellulitis Left [...] Type 2 DM with hyperglycemia, wi th long-term current use of insulin, blindness- 12/31 Serum glucose 216. 01/01 GaT8K=96.1. Maintain nutritional support with ADA diet. Monitor [...] Lovenox DNR status per patient preference. Inpatient, 48311, > 35 mins 01/02/22 1. Cellulitis Left Anterior Lower Extremity- Cellulitis slowly improving. Pt is on tramadol as needed for pa in management. On IV vancomycin and zosyn. Pharmacy following for vancomycin dosing. 2. Uncontrolled Type 2 DM with hyperglycemia, wi th long-term current use of insulin, blindness- 01/01 IhJ6P=96.1. On lantus insulin just titrated the dose [...] Pepcid, Lovenox DNR status per patient preference. 57584, > 35 mins 01/03/22 1. Cellulitis Left Anterior Lower Extremity- Cellulitis slowly improving. Pt is on tramadol as needed for pain management. pineda ed vancomycin and zosyn to Unasyn. 2. Uncontrolled Type 2 DM with hyperglycemia, wi th terminal gauger current use of insulin, blindness- 01/01 AlL8J=96.1. On lantus i nsulin , BG 155. continue to monitor BG ac and hs 3. Controlled HTN- on Losartan , Monitor BP. 4. Tobacco Use Disorder with 40 pack years, use of smokeless tobacco, chronic cough- Continue nicotine patch 5. 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 Ppx: Pepcid, Lovenox DNR status per patient preference. 90875, > 35 mins 01/04/22 1. Cellulitis Left Anterior Lower Extremity- Jaqueline lulitis improving. Pt is on tramadol as needed for pain management. On Unasy n. 2. Uncontrolled Type 2 DM with hyperglycemia, wi th long-term current use of insulin, blindness- 01/01 HhC2H=61.1. On lantus i nsulin , BG 155. continue to monitor BG ac and hs 3. Controlled HTN- on Losartan , Monitor BP. 4. Tobacco Use Disorder with 40 pack years, use of smokeless tobacco, chronic cough- Continue nicotine patch 5. 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 Ppx: Pepcid, Lovenox DNR status per patient preference. 35711, > 35 mins Electronically Signed by Armida Marmolejo NP on 12/20 12/10 at 2119 Electronically Signed by Ab Lucas MD on at 1835 RPT #:[id number] END OF REPORT 2022-01-03 [facility] 22:24:00-00:00 [facility] ([facility]) Internal Medicine Prog. Note REPORT#:[id number] REPORT STATUS: Signed DATE:01/03/22 TIME: 2223 PATIENT: HARJINDER COLUNGA UNIT #: [id number] ROOM/BED: [address] : [birth year] AGE: 56 SEX: M ATTEND: Zoya Lucas MD ADM AUTHOR: Armida Marmolejo NP * ALL edits or amendments must be made on the el Zeuss/computer document * Subjective Chief complaint: Left Leg [...] edema Musculoskeletal: no muscle spasm, Right BKA Neuro/PRODUCE FIELD MERCHANDISER: alert, oriented x 3, CNII-XII intact, normal [...] (Auto) (25.0 - 55.0 %) 23.2 L [place] % (Auto) (0.0 - 10.0 %) 8.6 Eos % (Auto) (0.0 - 5.0 %) 2.4 Baso % (Auto) (0.0 - 1.0 %) 0.5 Neut # (Auto) (1.8 - 7.7 K/mm3) 2.65 Lymph # (Auto) (1.0 - 5.0 K/mm3) 0.95 L [place] # (Auto) (0 - 0.8 K/mm3) 0.35 [...] 5. Hyperlipidemia due to type 2 diabetes [facility] 6. Ambulatory dysfunction 7. Hypomagnesemia 8. [...] Type 2 DM with hyperglycemia, wi th long-term current use of insulin blindness- 12/31 Serum glucose 216. HbA1C ordered. Maintain nutritional support with ADA diet. Monitor FSBG ac hs. Home dose of Lantus Insulin 15u q hs; medium dose sliding scale insu osiris. 3. Controlled HTN- Admit BP 137/77; home dose of Losartan resumed. Monitor BP. 4. Tobacco Use Disorder with 40 pack years, screw cutter alexander cough- Smoked 1 PPD from age [...] status per patient preference. H P, Obs, 29723, > 70 mins 01/01/22 1. Cellulitis Left [...] Type 2 DM with hyperglycemia, wi th long-term current use of insulin, blindness- 12/31 Serum glucose 216. 01/01 DtK4Q=45.1. Maintain nutritional support with ADA diet. Monitor [...] Lovenox DNR status per patient preference. Inpatient, 32251, > 35 mins 01/02/22 1. Cellulitis Left Anterior Lower Extremity- Cellulitis slowly improving. Pt is on tramadol as needed for pa in management. On IV vancomycin and zosyn. Pharmacy following for vancomycin dosing. 2. Uncontrolled Type 2 DM with hyperglycemia, wi th long-term current use of insulin, blindness- 01/01 DyS1L=47.1. On lantus insulin just titrated the dose [...] Pepcid, Lovenox DNR status per patient preference. 58722, > 35 mins 01/03/22 1. Cellulitis Left Anterior Lower Extremity- Cellulitis slowly improving. Pt is on tramadol as needed for pain management. pineda ed vancomycin and zosyn to Unasyn. 2. Uncontrolled Type 2 DM with hyperglycemia, wi th long-term current use of insulin, blindness- 01/01 MxB1B=57.1. On lantus i nsulin , BG 155. continue to monitor BG ac and hs 3. Controlled HTN- on Losartan , Monitor BP. 4. Tobacco Use Disorder with 40 pack years, use of smokeless tobacco, chronic cough- Continue nicotine patch 5. 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 Ppx: Pepcid, Lovenox DNR status per patient preference. 92743, > 35 mins Electronically Signed by Armida Marmolejo NP on 12/20 09/09 at 2232 Electronically Signed by Ab Lucas MD on at 1423 RPT #:[id number] END OF REPORT 2022-01-02 [facility] 17:16:00-00:00 [facility] ([facility]) Internal Medicine Prog. Note REPORT#:[id number] REPORT STATUS: Signed DATE:01/02/22 TIME: 1715 PATIENT: HARJINDER COLUNGA UNIT #: [id number] ROOM/BED: [address] : [birth year] AGE: 56 SEX: M ATTEND: Zoya Lucas MD ADM AUTHOR: Armida Marmolejo NP * ALL edits or amendments must be made on the [employer]/computer document * Subjective Chief complaint: Left Leg [...] Sodium (COLACE 100 MG CAPSULE) 100 MG BID PRN PRN PO Ondansetron HCl (ondansetron HCL) [...] edema Musculoskeletal: no muscle spasm, Right BKA Neuro/PRODUCE FIELD MERCHANDISER: alert, oriented x 3, CNII-XII intact, normal [...] 10.1 mg/dL) 8.2 L Laboratory Tests 01/02 0126 Hematology WBC (4.5 - 12.5 K/mm3) 4.4 [...] % (Auto) (25.0 - 55.0 %) 26.7 [place] % (Auto) (0.0 - 10.0 %) 6.8 Eos % (Auto) (0.0 - 5.0 %) 2.7 Baso % (Auto) (0.0 - 1.0 %) 0.7 Neut # (Auto) (1.8 - 7.7 K/mm3) 2.75 Lymph # (Auto) (1.0 - 5.0 K/mm3) 1.17 [place] # (Auto) (0 - 0.8 K/mm3) 0.30 [...] 5. Hyperlipidemia due to type 2 diabetes [facility] 6. Ambulatory dysfunction 7. Hypomagnesemia [...] 2 DM with hyperglycemia, wi th terminal gauger current use of insulin blindness- 12/31 Serum glucose 216. HbA1C ordered. Maintain nutritional support with ADA diet. Monitor FSBG ac hs. Home dose of Lantus Insulin 15u q hs; medium dose sliding scale insu osiris. 3. Controlled HTN- Admit BP 137/77; home dose of Losartan resumed. Monitor BP. 4. Tobacco Use Disorder with 40 pack years, screw cutter alexander cough- Smoked 1 PPD from age [...] status per patient preference. H P, Obs, 52902, > 70 mins 01/01/22 1. Cellulitis Left [...] Type 2 DM with hyperglycemia, wi th long-term current use of insulin, blindness- 12/31 Serum glucose 216. 01/01 HtP4P=87.1. Maintain nutritional support with ADA diet. Monitor [...] Lovenox DNR status per patient preference. Inpatient, 63333, > 35 mins 01/02/22 1. Cellulitis Left Anterior Lower Extremity- Cellulitis slowly improving. Pt is on tramadol as needed for pa in management. On IV vancomycin and zosyn. Pharmacy following for vancomycin dosing. 2. Uncontrolled Type 2 DM with hyperglycemia, wi th long-term current use of insulin, blindness- 01/01 LjZ5N=02.1. On lantus insulin just titrated the dose [...] Pepcid, Lovenox DNR status per patient preference. 33829, > 35 mins Electronically Signed by Armida Marmolejo NP on 12/20 08/10 at 1728 Electronically Signed by Ab Lucas MD on at 1422 RPT #:[id number] END OF REPORT 2022-01-02 [facility] 07:17:00-00:00 [facility] ([facility]) Pharmacy Prog.Note-Vancomycin REPORT#:[id number] REPORT STATUS: Signed DATE:01/02/22 TIME: 716 PATIENT: HARJINDER COLUNGA UNIT #: [id number] ROOM/BED: [place] [address] : [birth year] AGE: 56 SEX: M ATTEND: Zoya Lucas MD ADM AUTHOR: Thong [facility] * ALL edits or amendments must be made on the [employer]/computer document * Vancomycin Vancomycin Medication Therapy Goal: [...] Method 72 Hour I O Total 01/02 0700 01/01 0700 12/31 0700 Intake Total Output Total Balance Labs: [...] will continue to follow. at 0719 RPT #:[id number] END OF REPORT 2022-01-01 [facility] 22:53:00-00:00 [facility] Internal Medicine Prog. Note REPORT#:[id number] REPORT STATUS: Signed DATE:01/01/22 TIME: 2252 PATIENT: HARJINDER COLUNGA UNIT #: [id number] ROOM/BED: [address] : [birth year] AGE: 56 SEX: M ATTEND: Zoya Lucas MD ADM AUTHOR: Chris Trotter ASSOCIATE DESIGNER * ALL edits or amendments must be made on the [employer]/computer document * Subjective Chief complaint: Left Leg [...] edema Musculoskeletal: no muscle spasm, Right BKA Neuro/PRODUCE FIELD MERCHANDISER: alert, oriented x 3, CNII-XII intact, normal [...] 5. Hyperlipidemia due to type 2 diabetes [facility] 6. Ambulatory dysfunction 7. Hypomagnesemia 8. Left great toe amputee 9. Hx of right BKA 10. Chronic cough 11. Blind 12. DNR (do not resuscitate) Orders: My Order - Last 24 Hours Procedure Date/time Status Medication Management Message 01/02 4837 Comple te Change Patient Status 01/01 7552 Active Consultants: None Code status: do not [...] 2 DM with hyperglycemia, wi th terminal gauger current use of insulin blindness- 12/31 Serum glucose 216. HbA1C ordered. Maintain nutritional support with ADA diet. Monitor FSBG ac hs. Home dose of Lantus Insulin 15u q hs; medium dose sliding scale insu osiris. 3. Controlled HTN- Admit BP 137/77; home dose of Losartan resumed. Monitor BP. 4. Tobacco Use Disorder with 40 pack years, screw cutter alexander cough- Smoked 1 PPD from age [...] status per patient preference. H P, Obs, 30993, > 70 mins 01/01/22 1. Cellulitis Left [...] Type 2 DM with hyperglycemia, wi th long-term current use of insulin, blindness- 12/31 Serum glucose 216. 01/01 [id number]=67.1. Maintain nutritional support with ADA diet. Monitor [...] Lovenox DNR status per patient preference. Inpatient, [id number], > 35 mins Attestations Attestation needed: supervising physician at 1310 Electronically Signed by Ab Lucas MD on at 1422 RPT #:[id number] END OF REPORT 2021-12-31 [id number] [facility] 17:43:00-00:00 PATIENT NAME: HARJINDER COLUNGA ADMIT DATE: 12/31/21 ACCOUNT NO: [id number] ROOM NO: V.ERMD AGE: 56 REPORT TYPE: eNVL VENOUS ULTRASOUND SEX: M DATE OF : [birth year] ADMITTING PHYSICIAN:Ab Lucas MD ATTENDING PHYSICIAN:Ab Lucas MD *[facility]* [address] [place], [place] [address] Limited Lower Extremity Venous Duplex Evaluation Patient: Harjinder Colunga Study Date: 12/31/2021 BP: Location: [facility] URN: [id number] : 1965 Age: 56 Height: / Gender: M Weight: / BMI/BSA: / *Ordering Physician: * Jerry Roa *Interpreting Physician: * Baudilio Doyle MD *Ground Support Equipment Mechanic: * Cassidy Mcneal Indications: Pain. Study data: Limited lower extremity venous duple x evaluation. Left evaluation with grayscale 2D imaging, color Dopp ler imaging, and spectral Doppler analysis. Location: Emergency d [facility]. Patient status: Inpatient. Patient room number: RM-C. [...] 1743 PATIENT NAME: HARJINDER COLUNGA 966 2021-12-31 [facility] 15:08:00-00:00 [facility] ([facility]) History Physical - Adult REPORT#:[id number] REPORT STATUS: Signed DATE:12/31/21 TIME: 1508 PATIENT: HARJINDER COLUNGA UNIT #: [id number] ROOM/BED: [address] : [birth year] AGE: 56 SEX: M ATTEND: Zoya Lucas MD ADM AUTHOR: Chris Trotter ASSOCIATE DESIGNER * ALL edits or amendments must be made on the OMEGA MORGAN/computer document * History of Present Illness HPI [...] mellitus, Hypertension, Dyslip idemia. Additional medical history: [place] in 2003, legally blind Past surgical history: Reports: Amputation. Additional surgical history: 08/04/20 Right BKA Left Great Toe amputations. Additional family history: Father: CAD, MIs Mother: DM, CHF Brother: DM Alcohol use: Stopped alcohol use 25 years ago; ruchi wood h/o alcoholism. Drug use: Denies recreational drugs [...] metFORMIN (GLUCOPHAGE) 500 MG PO BID 60 Strength: 500 MG TAB 1829 CLINDAMYCIN HCL 300 MG PO Q6H 40 12/24/20 (CLEOCIN) 1637 Strength: 300 MG CAP INSULIN GLARGINE 0 UNITS SUBQ 10 09/30/21 (LANTUS) BEDTIME 191 Strength: 100 UNIT/ML VIAL INSULIN LISPRO (HumaLOG) 5 UNITS SUBQ AC 10 04/1112/31/21 Strength: 100 UNITS/ML VIAL 1916 1200 LOSARTAN (COZAAR) 50 MG PO DAILY [...] DVT Musculoskeletal: no muscle spasm, Right BKA Neuro/PRODUCE FIELD MERCHANDISER: alert, oriented X 3, normal speech, C [...] (Auto) (25.0 - 55.0 %) 14.4 L [place] % (Auto) (0.0 - 10.0 %) 5.1 Eos % (Auto) (0.0 - 5.0 %) 1.6 Baso % (Auto) (0.0 - 1.0 %) 0.4 Neut # (Auto) (1.8 - 7.7 K/mm3) 6.46 Lymph # (Auto) (1.0 - 5.0 K/mm3) 1.19 [place] # (Auto) (0 - 0.8 K/mm3) 0.42 [...] appear edematous. Correlate with physical exam. Location: [facility] Impression By: [email or web address] - Magan Rae MD [...] 5. Hyperlipidemia due to type 2 diabetes [facility] 6. Ambulatory dysfunction 7. Hypomagnesemia [...] 2 DM with hyperglycemia, wi th terminal gauger current use of insulin blindness- 12/31 Serum glucose 216. HbA1C ordered. Maintain nutritional support with ADA diet. Monitor FSBG ac hs. Home dose of Lantus Insulin 15u q hs; medium dose sliding scale insu osiris. 3. Controlled HTN- Admit BP 137/77; home dose of Losartan resumed. Monitor BP. 4. Tobacco Use Disorder with 40 pack years, screw cutter alexander cough- Smoked 1 PPD from age [...] status per patient preference. [place], Obs, [address], > 70 mins Attestations Attestation needed: supervising physician at 1851 Electronically Signed by Ab Lucas MD on at 1422 RPT #:[id number] END OF REPORT 2021-12-31 [facility] 11:20:00-00:00 [facility] ([facility]) EMERGENCY PROVIDER REPORT REPORT#:[id number] REPORT STATUS: Signed DATE:12/31/21 TIME: 1119 PATIENT: HARJINDER COLUNGA UNIT #: [id number] ROOM/BED: AGE: 56 SEX: M PCP PHYS: No Primary or Family Ph ysician SERVICE AUTHOR: Jerry Roa MD * ALL edits or amendments must be made on the OMEGA MORGAN/computer document * HPI-General Illness General Initial Greet Date/Time 12/31/21 112 PCP Jhon Presentation Chief Complaint __ (leg [...] mellitus, Hypertension, Dyslip idemia. Additional Medical History [place] in 2003 Past Surgical History: Reports: Amputation. Additional Surgical History None Family History: Reports: (father had C AD). Alcohol Use Denies EtOH use Drug Use Denies recreational drugs Other Social History Hx of substance and alcohol abuse Physical Exam Vital Signs Vital Signs First Documented: Result Date Time Pulse Ox 96 12/31 1119 B/P 137/77 09/12 1119 B/P Mean 97 12/31 1119 O2 Delivery Room air 12/31 1118 Temp 36.9 12/31 1119 Pulse 91 12/31 1119 Resp 20 12/31 1118 Last Documented: Result Date Time Pulse Ox 96 12/31 111 B/P 137/77 12/31 1119 B/P Mean 97 12/31 1119 O2 Delivery Room air 12/31 1118 Temp 36.9 12/31 1119 Pulse 91 12/31 1119 Resp 20 12/31 111 Review of Vital Signs Reviewed Physical Exam [...] Back Inspection NL, Painless range of motion, Non-tender, No CVA tenderness Lymphatic Lymphatic No gross [...] (Auto) (25.0 - 55.0 %) 14.4 L [place] % (Auto) (0.0 - 10.0 %) 5.1 Eos % (Auto) (0.0 - 5.0 %) 1.6 Baso % (Auto) (0.0 - 1.0 %) 0.4 Neut # (Auto) (1.8 - 7.7 K/mm3) 6.46 Lymph # (Auto) (1.0 - 5.0 K/mm3) 1.19 [place] # (Auto) (0 - 0.8 K/mm3) 0.42 [...] appear edematous. Correlate with physical exam. Location: [facility] Impression By: Alma Rae MD RADIOLOGY - XR TIBIA/FIBULA 2 V LT 12/31 1226 Report Impression - Status: SIGNED Entered: 12/31/2021 1240 IMPRESSION: Mild degenerative changes of the left knee. Othe rwise no radiographically evident bony abnormalities are seen in the scanned left lower extremity. The subcutaneous soft tissues appear edematous. Correlate with physical exam. Location: [facility] Impression By: Alma Rae MD Point of [...] 1,000 ML X1ED STA 12/31 1118 DC /12 IV 12/31 1217 1130 Hormones And Synthetic [...] 1119 Temp 36.9 /12 1119 Pulse 91 /12 1119 Resp 20 / 1119 Last Documented: Result Date Time Pulse Ox 96 12/31 1119 B/P 137/77 /12 1119 B/P Mean 97 / 1119 O2 Delivery Room air 12/31 1119 Temp 36.9 /12 1119 Pulse 91 /12 1119 Resp 20 / 1119 All vital signs available at the time of this en try have been reviewed. Clinical Impression Clinical Impression Primary Impression: Cellulitis Disposition Decision Admit Admit Physician Name Ab Lucas MD Admit Physician Claims Clerk Physician Request Time 1330 Request Date 12/31/21 )( Admission Accepts Yes )( Accepted Time 1330 )( Accepted Date 12/31/21 Call Information will see patient, agrees with eval, agrees with plan Electronically Signed by Jerry Roa MD on 12/20 06/12 at 1330 [facility] #:[id number] END OF REPORT 2021-10-07 [facility] 07:00:00-00:00 [facility] ([facility]) EMERGENCY PROVIDER REPORT REPORT#:[id number] REPORT STATUS: Signed DATE:10/07/21 TIME: 07 PATIENT: HARJINDER COLUNGA UNIT #: [id number] ROOM/BED: AGE: 56 SEX: M PCP PHYS: No Primary or Family Ph ysician SERVICE DT: AUTHOR: Jerry Roa MD * ALL edits or amendments must be made on the OMEGA MORGAN/computer document * HPI-General Illness General Initial Greet [...] mellitus, Hypertension, Dyslip idemia. Additional Medical History [place] in 2003 Past Surgical History: Reports: Amputation. Additional Surgical History None Family History: Reports: (father had C AD). Alcohol Use Denies EtOH use Drug Use Denies recreational drugs Other Social History Hx of substance and alcohol abuse Physical Exam Vital Signs Vital Signs First Documented: Result Date Time Pulse Ox 99 06/19 0658 B/P 157/75 10/07 0558 B/P Mean 102 10/07 657 Temp 36.7 10/07 657 Pulse 83 10/07 657 Resp 17 10/07 657 Last Documented: Result Date Time Pulse Ox 99 10/07 657 B/P 157/75 10/07 657 B/P Mean 102 10/07 657 Temp 36.7 10/07 657 Pulse 83 10/07 0558 Resp 17 10/07 657 Review of Vital Signs Reviewed Physical Exam [...] Referrals Provider Referral: Gilbert Salinas DO Address: [address] [place] [address] [place] [address] Provider Referral: Rodriguez Salinas DO Follow-Up: 1-2 Days Address: [address] [place] [address] [address] [place] [address] Electronically Signed by Jerry Roa MD on 09/19 01/10 at 0705 RPT #:[id number] END OF REPORT 2021-08-06 [facility] 16:40:00-00:00 [facility] ([facility]) EMERGENCY PROVIDER REPORT REPORT#:[id number] REPORT STATUS: Signed DATE:08/06/21 TIME: 1640 PATIENT: HARJINDER COLUNGA UNIT #: [id number] ROOM/BED: AGE: 56 SEX: M PCP PHYS: No Primary or Family Ph ysician SERVICE AUTHOR: Brennan Dupont MD * ALL edits or amendments must be made on the el ectronic/computer document * HPI-General Illness Free Text HPI [...] PO BID #60 TABS Prov: 12/24/20 DC: 08/06/21 182 Calculated Suicide Risk (nurs) No risk Past Medical History: Reports: Diabetes mellitus (BS 168 MG/DL LAST PM ). Additional Medical History [place] in 2003 Additional Surgical History None Family [...] normal limits Musculoskeletal: normal inspection, normal tone Neuro/PRODUCE FIELD MERCHANDISER: alert oriented x 3, nonfocal Skin: warm, [...] pH (5.0 - 8.0) 6.0 Ur Specific [place] (1.001 - 1.035) 1.020 Urine Protein (Neg [...] Report Impression - Status: SIGNED Entered: 08/06/2021 7397 IMPRESSION: No acute cardiopulmonary process. Location: [facility] Impression By: Neftali - Ramu Ramos M.D. Point of Care [...] physician or other designated or consulting phys dolores as outlined in the discharge instructions. The [...] symptoms should prompt an immediate return to [facility] or the closest emergency department or a call to 1. at 1947 RPT #:[id number] END OF REPORT 2020-12-24 [facility] 12:15:00-00:00 [facility] ([facility]) EMERGENCY PROVIDER REPORT REPORT#:[id number] REPORT STATUS: Signed DATE:12/24/20 TIME: 1215 PATIENT: HARJINDER COLUNGA UNIT #: [id number] ROOM/BED: AGE: 55 SEX: M PCP PHYS: No Primary or Family Ph ysician SERVICE AUTHOR: Jerry Roa MD * ALL edits or amendments must be made on the OMEGA MORGAN/computer document * HPI-Dizziness/Weakness General Initial Greet Date/Time [...] and squeezes hands appropriately upon command. Normal kvlm-[id number] eye mo vements on extraocular muscle testing. [...] MG/DL LAST PM ). Additional Medical History [place] in 2003 Additional Surgical History None Family [...] pH (5.0 - 8.0) 6.0 Ur Specific [place] (1.001 - 1.035) 1.020 Urine Protein (Neg - 15 mg/dL) NEGATIVE Urine Glucose (UA) (NEGATIVE mg/dL) 70-100 (1+ ) Urine Ketones (NEGATIVE mg/dL) NEGATIVE Urine [...] intracranial process. LOCATION: [facility] Impression By: Ashanti Duncan D.OTish Point of Care Testing Pulse Oximetry Pulse Ox % 98 On: Room air Interpretation Interpreted by me, Pulse oximetr y normal Time 1218 ECG #1 Interpretation Time 1246 Interpreted by ED physician NL ECG Interpretation Normal rate, No STEMI, Nor mal axis, Normal intervals, Adequate tracing ECG Q-T-ST - [place] Non-specific ST changes Conduction/[place] RBBB - complete Re-Evaluation MDM Re-Evaluation/Progress #1 [...] 1350 Pulse 79 12/24 1350 Resp 20 09/05 1350 Temp 36.7 12/24 1206 All vital [...] Care Referrals Narda Oshea M: 1-2 Days [facility]: 1-2 Days Electronically Signed by Jerry Roa MD on 09/08 at 1644 [facility] #:[id number] END OF REPORT 2020-08-14 [id number] [facility] 18:14:00-00:[address] [place] [address] PATIENT NAME: HARJINDER COLUNGA ADMIT DATE: 06/28/20 ACCOUNT NO: [id number] ROOM NO: C.OBS14 AGE: 55 REPORT TYPE: [...] stent to the right superficial femoral artery, ASSESSMENT NURSE PRACTITIONER atherectomy of t he right posterior tibial artery. The patient tolerated the procedure well . After discussing with ID, Dr. Velez, the patient was discharged home on 07/05/2020 with p.o. Keflex for 2 weeks. Dictated By: Nathanael Laureano MD WT: DS:ALEC/THU. Conf#: [id number]/DID#: [id number] Authenticated by Nathanael Laureano MD O n 08/15/2020 05:53:32 PM at 1753 PATIENT NAME: HARJINDER COLUNGA 917 2020-07-11 [id number] [facility] 12:12:00-00:[address] [place] [address] PATIENT NAME: HARJINDER COLUNGA ADMIT DATE: 06/28/20 ACCOUNT NO: [id number] ROOM NO: [place] [address] AGE: 55 REPORT TYPE: OPERATIVE REPORT SEX: [...] Pedal access, right posterior tibial artery. 5. ASSESSMENT NURSE PRACTITIONER atherectomy and stent to the right superf icial femoral artery. 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 This was a difficult portion of the case. Stenting was with a 6 x 200 EverFlex. 6. ASSESSMENT NURSE PRACTITIONER atherectomy of the right posterior tibial artery [...] done from the groin sheat h. 9. ASSESSMENT NURSE PRACTITIONER of the right external iliac artery with [...] consent, the patient was taken to the boat laborer and placed supine on the table. Both [...] I successfully gained access acr oss the HAIR STYLIST. From there, the wire was flossed back [...] ei ther. Prior to removing the sheath, ASSESSMENT NURSE PRACTITIONER atherectomy of the left tibioperoneal trunk and [...] Gilbert Ventura III, MD WT: OP:ALEC/AMRITA/NTS Conf#: [id number]/DID#: [id number] Authenticated by [email or web address] [email or web address] On 07/19 11:40:13 AM Electronically Signed by Gilbert Ventura III, MD o n 07/19/20 at 1140 PATIENT NAME: HARJINDER COLUNGA 917 2020-07-05 [facility] 07:39:00-00:00 [facility] ([facility] Podiatry Progress Note REPORT#:[id number] REPORT STATUS: Signed DATE:07/05/20 TIME: 738 PATIENT: HARJINDER COLUNGA UNIT #: [id number] ROOM/BED: [address] : [birth year] AGE: 55 SEX: M ATTEND: Arpit Laureano [facility] AUTHOR: Patrick Sr DPM R2 * ALL edits or amendments must be made on the OMEGA MORGAN/computer document * General VS/I O: Last Documented: Result Date Time Pulse Ox 98 07/05 720 B/P 120/76 07/05 07 B/P Mean 90.6 07/05 0621 Temp 37.1 07/05 0721 Pulse 89 07/05 0721 Resp 19 07/05 0721 O2 Delivery Room air 07/04 2223 24 [...] ABIs report monphasic waveforms d istal to CHANDELIER MAKER, stenosis on RIGHT and similar results on left below popliteal. vascular consulted, agr am results pending. WOund debridement performed at bedside 07/01/20 to beef y red bleeding tissue. No further debridement at this time. Dressed with DSD and aquacel. Pt may follow up with Dr. Marito Ray for out patient wound care. discussed with attending at 0742 RPT #:[id number] END OF REPORT 2020-07-05 [facility] 07:39:00-00:00 [facility] ([facility]) Podiatry Progress Note REPORT#:[id number] REPORT STATUS: Signed DATE:07/05/20 TIME: 738 PATIENT: HARJINDER COLUNGA UNIT #: [id number] ROOM/BED: [address] : [birth year] AGE: 55 SEX: M ATTEND: Arpit Laureano [facility] AUTHOR: Patrick Sr DPM R2 * ALL edits or amendments must be made on the OMEGA MORGAN/computer document * General VS/I O: Last Documented: [...] right foot. NEUROLOGIC: Complete loss of protective sensati on and loss of light touch, insensate to [...] ABIs report monphasic waveforms d istal to CHANDELIER MAKER, stenosis on RIGHT and similar results on left below popliteal. vascular consulted, agr am results pending. WOund debridement performed at bedside 07/01/20 to beef y red bleeding tissue. No further debridement at this time. Dressed with DSD and aquacel. Pt may follow up with Dr. Marito Ray for out patient wound care. discussed with attending at 0742 at 1135 RPT #:[id number] END OF REPORT 2020-07-04 [facility] 10:47:00-00:00 [facility] ([facility]) Infectious Dis. Progress Note REPORT#:[id number] REPORT STATUS: Signed DATE:07/04/20 TIME: 1047 PATIENT: HARJINDER COLUNGA UNIT #: [id number] ROOM/BED: [address] : [birth year] AGE: 55 SEX: M ATTEND: Arpit Laureano ADM AUTHOR: Anam Velez MD * ALL edits or amendments must be made on the el [employer]/computer document * Subjective Chief Complaint: 06-30-2020 FEELS [...] BEDTIME 07/03 2100 A C 07/03 PO 04/14 2101 2252 Regadenoson 0.4 MG ASDIR 07/02 [...] Lispro 5 UNITS AC 06/29 0730 AC 07/03 SUBQ 07/29 0731 1731 Insulin Glargine 15 UNITS BEDTIME 06/28 2100 AC 07/03 SUBQ 07/28 210 2252 Clonidine HCl 0.1 MG Q6H PRN PRN 06/28 2014 AC 06/29 PO 07/29 2015 1747 Enoxaparin Sodium 40 MG Q24H 06/28 2014 AC 06/19 5 SUBQ 07/29 2015 2252 Dextrose/Water 25 ML ASDIR PRN 06/28 191 [...] PMH uncontrolled D M, peripheral neuropathy, cataracts/blindness, [place] in 2003, and tobacco abuse presented for [...] MD on 0 07/04/20 at 1049 RPT #:[id number] END OF REPORT 2020-07-04 [facility] 08:03:00-00:00 [facility] Podiatry Progress Note REPORT#:[id number] REPORT STATUS: Signed DATE:07/04/20 TIME: 08 PATIENT: HARJINDER COLUNGA UNIT #: [id number] ROOM/BED: [address] : [birth year] AGE: 55 SEX: M ATTEND: Arpit Laureano ADM AUTHOR: Patrick Sr DPM R2 * ALL edits or amendments must be made on the OMEGA MORGAN/computer document * General VS/I O: Last Documented: [...] ABIs report monphasic waveforms d istal to CHANDELIER MAKER, stenosis on RIGHT and similar results on left below popliteal. vascular consulted and they will do aortagram this week. WOund debridement performed at bedside 06/19 07/09 to beefy red bleeding tissue. No further debridement at this time. Volodymyr ssed with DSD and aquacel. Pt may follow up with Dr. Marito Ray for out patie nt wound care. discussed with attending at 0808 RPT #:[id number] END OF REPORT 2020-07-04 [facility] 08:03:00-00:00 [facility]) Podiatry Progress Note REPORT#:[id number] REPORT STATUS: Signed DATE:07/04/20 TIME: 802 PATIENT: HARJINDER COLUNGA UNIT #: [id number] ROOM/BED: [address] : [birth year] AGE: 55 SEX: M ATTEND: Arpit Laureano ADM AUTHOR: Patrick Sr DPM R2 * ALL edits or amendments must be made on the OMEGA MORGAN/computer document * General VS/I O: Last Documented: [...] ABIs report monphasic waveforms d istal to CHANDELIER MAKER, stenosis on RIGHT and similar results on [...] with attending at 0808 at 1135 RPT #:[id number] END OF REPORT 2020-07-04 [facility] 08:00:00-00:00 [facility] ([facility]) Hospitalist Progress Note REPORT#:[id number] REPORT STATUS: Signed DATE:07/04/20 TIME: 0800 PATIENT: HARJINDER COLUNGA UNIT #: [id number] ROOM/BED: [address] : [birth year] AGE: 55 SEX: M ATTEND: Arpit Laureano [facility] AUTHOR: Ovidio Hernandez * ALL edits or amendments must be made on the OMEGA MORGAN/[employer] document * Subjective Chief Complaint: foot pain Comments: Interval Hx: CALEB overnight Objective General VS/I O: Vital Signs: Date Time Temp Pulse Resp B/P B/P Pulse O2 O2 Flow FiO2 Mean Ox Delivery Rate 07/04 0730 [...] ot wrapped) Musculoskeletal: decreased ROM (R foot) Neuro/PRODUCE FIELD MERCHANDISER: alert, oriented X 3 Ulcer: Type/cause: diabetic [...] will continue to follow at 2110 RPT #:[id number] END OF REPORT 2020-07-03 [facility] 17:03:00-00:00 [facility] ([facility]) Hospitalist Progress Note REPORT#:[id number] REPORT STATUS: Signed DATE:07/03/20 TIME: 1702 PATIENT: HARJINDER COLUNGA UNIT #: [id number] ROOM/BED: [address] : [birth year] AGE: 55 SEX: M ATTEND: Arpit Laureano ADM AUTHOR: Tommy Andres ASSOCIATE DESIGNER * ALL edits or amendments must be made on the OMEGA MORGAN/[employer] document * Subjective Chief Complaint: Foot pain Free Text Subj Notes Free Text Subj Notes: No acute events Review of Systems Musculoskeletal: Other musculoskeletal: Reports: other (Right foot pain). All systems rev neg: except as marked Objective General VS/I O: Vital Signs: Date Time Temp Pulse Resp B/P B/P Pulse O2 O2 Flow FiO2 Mean Ox Delivery Rate 07/03 1509 [...] ot wrapped) Musculoskeletal: decreased ROM (R foot) Neuro/PRODUCE FIELD MERCHANDISER: alert, oriented X 3 Ulcer: Type/cause: diabetic [...] Pain control Electronically Signed by Tommy Andres ASSOCIATE DESIGNER on 0 07/03/20 at 1704 RPT #:[id number] END OF REPORT 2020-07-03 [facility] 17:02:00-00:00 [facility] Clinical Note REPORT#:[id number] REPORT STATUS: Signed DATE:07/03/20 TIME: 1701 PATIENT: HARJINDER COLUNGA UNIT #: [id number] ROOM/BED: [address] : 67 AGE: 55 SEX: M ATTEND: Arpit Laureano [facility] AUTHOR: Tommy Andres NP * ALL edits or amendments must be made on the OME[employer] MORGAN/[employer] document * Clinical Note Note: Had a [...] full code. Electronically Signed by Tommy Andres ASSOCIATE DESIGNER on 0 07/03/20 at 1703 RPT #:[id number] END OF REPORT 2020-07-03 [facility] 15:12:00-00:00 [facility] Infectious Dis. Progress Note REPORT#:[id number] REPORT STATUS: Signed DATE:07/03/20 TIME: 1511 PATIENT: HARJINDER COLUNGA UNIT #: [id number] ROOM/BED: [address] : [birth year] AGE: 55 SEX: M ATTEND: Arpit Laureano [facility] ADM AUTHOR: Anam Velez MD * ALL edits or amendments must be made on the OMEGA MORGAN/[employer] document * Subjective Chief Complaint: 06-30-2020 FEELS [...] BEDTIME 07/03 2100 A C PO 08/02 210 Regadenoson 0.4 MG ASDIR 07/02 1700 AC [...] 2014 AC 06/19 3 SUBQ 07/28 2016 203 Dextrose/Water 25 ML ASDIR PRN 06/28 1914 AC IV 07/28 191 Glucagon 1 MG ASDIR PRN 06/28 191 AC IM 07/29 1915 Insulin Human Lispro See Dose ASDIR 06/28 191 AC 07/02 Insts (3) SUBQ 07/28 191 215 Dose Instructions: (1)Perflutren Lipid Microsphere: DIRECTED (2)Sodium [...] PMH uncontrolled D M, peripheral neuropathy, cataracts/blindness, [place] in 2003, and tobacco abuse presented for [...] Velez MD on 0 07/03/20 at 1515 [facility] #:[id number] END OF REPORT 2020-07-03 [id number] [place] [address] PATIENT NAME: HARJINDER COLUNGA ADMIT DATE: 06/28/20 ACCOUNT NO: [id number] ROOM NO: C.OBS14 AGE: 55 REPORT TYPE: [...] Wojciech Delgado MD WT: STRESS:C.CARLENE/JUAN MANUEL/LOTTIE Conf#: [id number]/DID#: [id number] Authenticated by Wojciech Delgado MD On 08/01/2020 08:04:19 AM PATIENT NAME: HARJINDER COLUNGA 917 Electronically Signed by Wojciech Delgado MD on 0 08/01/20 at 0804 PATIENT NAME: HARJINDER COLUNGA 917 2020-07-03 [id number] [facility] 13:09:00-00:[address] [place] [address] PATIENT NAME: HARJINDER COLUNGA ADMIT DATE: 06/28/20 ACCOUNT NO: [id number] ROOM NO: [facility] AGE: 55 REPORT TYPE: eECHOCARDIOGRAM REPORT. SEX: M ADMITTING PHYSICIAN:Nathanael Laureano ATTENDING PHYSICIAN:Nathanael Laureano *[facility]* [address] [facility] [address] [address] Transthoracic Echocardiogram Patient: Harjinder Colunga Study Date: 07/03/2020 BP: 124 / 76 Location: [facility] URN: [id number] : 1965 Age: 55 Height: 67 in / 170.2 cm Gender: M Weight: 179 .6 lb / 81.6 kg BMI/BSA: 28.2 kg/m 2 / 1.98 m 2 *Ordering Physician: Ramu Lujan *Interpreting Physician: * Wojciech Delgado MD *Ground Support Equipment Mechanic: Zoe Reardon Indications: Pre-operative Cardiovascular Evalua tion. Study data: Transthoracic echocardiogram. Proced ure: Transthoracic echocardiography was performed. Images were obta ined using a [employer] E95-1 cardiac ultrasound machine. Complete 2D, complet [...] 1309 PATIENT NAME: HARJINDER COLUNGA 917 2020-07-03 [facility] 12:28:00-00:00 [facility] Cardiology Progress Note REPORT#:[id number] REPORT STATUS: Signed DATE:07/03/20 TIME: 1228 PATIENT: HARJINDER COLUNGA UNIT #: [id number] ROOM/BED: [address] : 69 AGE: 55 SEX: M ATTEND: Arpit Laureano [facility] AUTHOR: Wojciech Delgado MD * ALL edits or amendments must be made on the el [employer]/computer document * Subjective Chief Complaint: Seen and [...] affect, normal mood Results Findings/Data: Laboratory Tests 07/0314 1129 0727 0627 2046 1515 Chemistry Sodium [...] Tests 07/03 0846 Coagulation INR 1.1 PTT ([place]) (23.4 - 37.0 SECONDS) 27.1 PT Patient/Control [...] % (Auto) (20.5 - 45.5 %) 22.3 [place] % (Auto) (5.5 - 11.7 %) 9.6 Eos % (Auto) (0.9 - 2.9 %) 2.1 Baso % (Auto) (0.2 - 1.0 %) 0.9 Neut # (Auto) (2.2 - 4.8 x10 3/uL) 3.63 Lymph # (Auto) (1.3 - 2.9 x10 3/uL) 1.25 L [place] # (Auto) (0.3 - 0.8 x10 3/uL) [...] 55 year old man with CAD s/p OH (did not present to [facility] for follow-up PCI), DM, smoker presenting fo r foot wounds, podiatry evaluating for further debridement. Cardiology consulted for pre-operative evaluatio n. 1. preoperative evaluation -intermediate risk - f/u TTE and Lexiscan nuclear stress today give n past OH and inability to exercise 2. DM Monitor blood sugar 3. Foot wounds negative for osteomyelitis on MRI Management per ID and podiatry 4. PVD Aortogram per vascular Monitor lower extremities. Electronically Signed by Wojciech Delgado MD on at 1231 RPT #:[id number] END OF REPORT 2020-07-03 [facility] 12:28:00-00:00 [facility] ([facility]) Cardiology Progress Note REPORT#:[id number] REPORT STATUS: Signed DATE:07/03/20 TIME: 1228 PATIENT: HARJINDER COLUNGA UNIT #: [id number] ROOM/BED: [address] : 67 AGE: 55 SEX: M ATTEND: Arpit Laureano ADM AUTHOR: Wojciech Delgado MD * ALL edits or amendments must be made on the el Zeuss/computer document * See Addendum Subjective Chief Complaint: [...] Tests 07/03 07/03 07/03 07/02 07/02 1129 2389 1596 2046 1515 Chemistry Sodium (137 - 145 [...] % (Auto) (20.5 - 45.5 %) 22.3 [place] % (Auto) (5.5 - 11.7 %) 9.6 Eos % (Auto) (0.9 - 2.9 %) 2.1 Baso % (Auto) (0.2 - 1.0 %) 0.9 Neut # (Auto) (2.2 - 4.8 x10 3/uL) 3.63 Lymph # (Auto) (1.3 - 2.9 x10 3/uL) 1.25 L [place] # (Auto) (0.3 - 0.8 x10 3/uL) 0.54 Eos # (Auto) (0.0 - 0.2 x10 3/uL) 0.12 Baso # (Auto) (0.0 - 0.1 x10 3/uL) 0.05 Immature Gran % (0.0 - 2.0 %) 0.4 Nucleated RBC % (0 - 1.0 %) 0.0 Laboratory Tests 07/03 845 Serology SARS-CoV-2 Ag (Rapid) (Negative) NEGATIVE Diagnosis, Assessment Plan Free Text DxA P Notes Free Text DxA P Notes: 55 year old man with CAD s/p OH (did not present to [facility] for follow-up PCI), DM, smoker presenting fo r foot wounds, podiatry evaluating for further debridement. Cardiology consulted for pre-operative evaluatio n. 1. preoperative evaluation -intermediate risk - f/u TTE and Lexiscan nuclear stress today give n past OH and inability to exercise 2. DM Monitor [...] Wojciech Delgado MD on at 1319 RPT #:[id number] END OF REPORT 2020-07-03 [facility] 07:59:00-00:00 [facility] ([facility]) Podiatry Progress Note REPORT#:[id number] REPORT STATUS: Signed DATE:07/03/20 TIME: 075 PATIENT: HARJINDER COLUNGA UNIT #: [id number] ROOM/BED: 1101-A : 67 AGE: 55 SEX: M ATTEND: Arpit Laureano ADM AUTHOR: Patrick Sr DPM R2 * ALL edits or amendments must be made on the [employer]/computer document * General VS/I O: Last Documented: [...] ABIs report monphasic waveforms d istal to CHANDELIER MAKER, stenosis on RIGHT and similar results on left below popliteal. vascular consulted and they will do aortagram next week. WOund debridement performed at bedside 06/19 07/09 to beefy red bleeding tissue. No further debridement at this time. Volodymyr ssed with DSD and aquacel. discussed with attending at 0804 RPT #:[id number] END OF REPORT 2020-07-03 [facility] 07:59:00-00:00 [facility] Podiatry Progress Note REPORT#:[id number] REPORT STATUS: Signed DATE:07/03/20 TIME: 758 PATIENT: HARJINDER COLUNGA UNIT #: [id number] [address] AGE: 55 SEX: M ATTEND: Arpit Laureano ADM AUTHOR: Patrick Sr DPM R2 * ALL edits or amendments must be made on the el [employer]/computer document * General VS/I O: Last Documented: [...] ABIs report monphasic waveforms d istal to CHANDELIER MAKER, stenosis on RIGHT and similar results on left below popliteal. vascular consulted and they will do aortagram next week. WOund debridement performed at bedside 06/19 07/09 to beefy red bleeding tissue. No further debridement at this time. Volodymyr ssed with DSD and aquacel. discussed with attending at 0804 at 1135 RPT #:[id number] END OF REPORT 2020-07-02 [facility] 16:40:00-00:00 [facility] ([facility]) Int. Cardiology Consult Note REPORT#:[id number] REPORT STATUS: Signed DATE:07/02/20 TIME: 1640 PATIENT: HARJINDER COLUNGA UNIT #: [id number] ROOM/BED: [address] : 67 AGE: 55 SEX: M ATTEND: Arpit Laureano ADM AUTHOR: Ramu Araujo MD * ALL edits or amendments must be made on the el [employer]/computer document * History of Present Illness History of Present Illness Requesting clinician: Georgi Reason for consult: Pre-operative assessment Chief complaint: Foot wounds HPI: 55-year-old man, legally blind, DM, CAD with untreated OH in 2003 (patient did not follow-up to [...] MG/DL LAST PM ). Additional medical history: OH in 2003 Additional surgical history: None Family [...] Ox 97 07/02 151 B/P 117/68 07/02 1516 B/P Mean 84.3 07/02 151 O2 Delivery Room air 07/03 1515 Temp 36.7 07/02 151 Pulse 76 07/02 [...] soft, non-tender Musculoskeletal: full range of motion Neuro/PRODUCE FIELD MERCHANDISER: alert, oriented X 3 Skin: foot wounds [...] 55 year old man with CAD s/p OH (did not present to [facility] for follow-up PCI), DM, smoker presenting fo r foot wounds, podiatry evaluating for further debridement. Cardiology consulted for pre-operative evaluatio n. 1. preoperative evaluation -TTE -nuclear stress given past OH and inability to e xercise 2. DM Monitor blood sugar 3. Foot wounds negative for osteomyelitis on MRI Management per ID and podiatry 4. PVD Aortogram per vascular Monitor lower extremities. at 1648 RPT #:[id number] END OF REPORT 2020-07-02 [facility] 15:12:00-00:00 [facility] Progress Note REPORT#:[id number] REPORT STATUS: Signed DATE:07/02/20 TIME: 1511 PATIENT: HRAJINDER COLUNGA UNIT #: [id number] ROOM/BED: [address] : 67 AGE: 55 SEX: M ATTEND: Arpit Laureano AUTHOR: Nathanael Laureano * ALL edits or amendments must be made on the [employer]/computer document * Subjective Chief Complaint: Pain over [...] BEDTIME 06/28 2099 AC 07/01 SUBQ 07/28 2101 203 Clonidine HCl 0.1 MG Q6H PRN [...] of care Pain control at 2240 RPT #:[id number] END OF REPORT 2020-07-02 [facility] 11:55:00-00:00 [facility] Vascular Surgery Progress Note REPORT#:[id number] REPORT STATUS: Signed DATE:07/02/20 TIME: 1155 PATIENT: HARJINDER COLUNGA UNIT #: [id number] ROOM/BED: [address] : 67 AGE: 55 SEX: M ATTEND: Arpit Laureano ADM AUTHOR: Enrrique Zuñiga MD R2 * ALL edits or amendments must be made on the el [employer]/computer document * Subjective Comments: Patient reports unchanged [...] Do ppler study -: R posterior tibialis Neuro/PRODUCE FIELD MERCHANDISER: alert, oriented X 3, normal speech Skin: [...] uncontr olled DM, peripheral neuropathy, cataracts/blindness , OH in 2003, and tobacco abuse presented with [...] MD R2 on 07/02 at 1202 RPT #:[id number] END OF REPORT 2020-07-02 [facility] 11:55:00-00:00 [facility]) Vascular Surgery Progress Note REPORT#:[id number] REPORT STATUS: Signed DATE:07/02/20 TIME: 115 PATIENT: HARJINDER COLUNGA UNIT #: [id number] ROOM/BED: [address] : [birth year] AGE: 55 SEX: M ATTEND: Arpit Laureano ADM AUTHOR: Enrrique Zuñiga MD R2 * ALL edits or amendments must be made on the [employer]/computer document * Enrrique Zuñiga 07/02/20 1155: Subjective [...] Do ppler study -: R posterior tibialis Neuro/PRODUCE FIELD MERCHANDISER: alert, oriented X 3, normal speech Skin: [...] uncontr olled DM, peripheral neuropathy, cataracts/blindness , OH in 2003, and tobacco abuse presented with [...] MD R2 on 07/02 at 1202 RPT #:[id number] END OF REPORT 2020-07-02 [facility] 11:55:00-00:00 [facility]) Vascular Surgery Progress Note REPORT#:[id number] REPORT STATUS: Signed DATE:07/02/20 TIME: 1155 PATIENT: HARJINDER COLUNGA UNIT #: [id number] ROOM/BED: [address] : 67 AGE: 55 SEX: M ATTEND: Arpit Laureano ADM AUTHOR: Enrrique Zuñiga MD R2 * ALL edits or amendments must be made on the [employer]/computer document * Enrrique Zuñiga 07/02/20 1155: Subjective [...] Do ppler study -: R posterior tibialis Neuro/PRODUCE FIELD MERCHANDISER: alert, oriented X 3, normal speech Skin: [...] uncontr olled DM, peripheral neuropathy, cataracts/blindness , OH in 2003, and tobacco abuse presented with [...] on 07/02 at 1202 at 1024 RPT #:[id number] END OF REPORT 2020-07-02 [facility] 09:49:00-00:00 [facility] ([facility]) Infectious Dis. Progress Note REPORT#:[id number] REPORT STATUS: Signed DATE:07/02/20 TIME: 948 PATIENT: HARJINDER COLUNGA UNIT #: [id number] ROOM/BED: 1101-A : 69 AGE: 55 SEX: M ATTEND: Arpit Laureano ADM AUTHOR: Anam Velez MD * ALL edits or amendments must be made on the el [employer]/computer document * Subjective Chief Complaint: 06-30-2020 FEELS [...] 0730 AC 0 07/02 SUBQ 07/29 0731 09 Insulin Glargine 15 UNITS BEDTIME 06/28 2099 [...] 1914 AC 06/30 Insts (1) SUBQ 07/28 1916 [...] Pulse Ox FiO 2 07/01-07/02 36.5-36.7 69-91 14-18 95-125/58-81 70.1-95.6 95-100 [...] PMH uncontrolled D M, peripheral neuropathy, cataracts/blindness, OH in 2003, and tobacco abuse presented for [...] Velez MD on 0 07/02/20 at 0951 [facility] #:[id number] END OF REPORT 2020-07-02 [facility] 07:54:00-00:00 [facility] ([facility]) Podiatry Progress Note REPORT#:[id number] REPORT STATUS: Signed DATE:07/02/20 TIME: 075 PATIENT: HARJINDER COLUNGA UNIT #: [id number] ROOM/BED: 1101-A : 67 AGE: 55 SEX: M ATTEND: Arpit Laureano ADM AUTHOR: Patrick Sr DPM R2 * ALL edits or amendments must be made on the el [employer]/computer document * General VS/I O: Last Documented: Result Date Time Pulse Ox 96 07/02 0649 B/P 125/81 07/02 0649 B/P Mean 95.6 07/02 0749 Temp 36.5 [...] ABIs report monphasic waveforms d istal to CHANDELIER MAKER, stenosis on RIGHT and similar results on left below popliteal. vascular consulted and they will do aortagram next week. WOund debridement performed at bedside 06/19 07/09 to beefy red bleeding tissue. Additional, deeper debridement needed in OR later this week. Dressed with DSD and betadine discussed with attending at 0801 RPT #:[id number] END OF REPORT 2020-07-02 [facility] 07:54:00-00:00 [facility] Podiatry Progress Note REPORT#:[id number] REPORT STATUS: Signed DATE:07/02/20 TIME: 753 PATIENT: HARJINDER COLUNGA UNIT #: [id number] ROOM/BED: [address] : 67 AGE: 55 SEX: M ATTEND: Arpit Laureano ADM AUTHOR: Patrick Sr DPM R2 * ALL edits or amendments must be made on the [employer]/computer document * General VS/I O: Last Documented: Result Date Time Pulse Ox 96 07/02 748 B/P 125/81 07/02 748 B/P Mean 95.6 07/02 748 Temp 36.5 07/02 07 Pulse 75 07/02 0749 Resp 18 07/02 748 O2 Delivery Room air 06/28 1458 PATIENT [...] ABIs report monphasic waveforms d istal to CHANDELIER MAKER, stenosis on RIGHT and similar results on left below popliteal. vascular consulted and they will do aortagram next week. WOund debridement performed at bedside 06/19 07/09 to beefy red bleeding tissue. Additional, deeper debridement needed in OR later this week. Dressed with DSD and betadine discussed with attending at 0801 at 1135 RPT #:[id number] END OF REPORT 2020-07-01 [facility] 19:59:00-00:00 [facility] ([facility]) Vascular Surgery Consult Note REPORT#:[id number] REPORT STATUS: Signed DATE:07/01/20 TIME: 1958 PATIENT: HARJINDER COLUNGA UNIT #: [id number] ROOM/BED: [address] : 67 AGE: 55 SEX: M ATTEND: Arpit Laureano ADM AUTHOR: Eliot Vale MD R1 * ALL edits or amendments must be made on the el [employer]/computer document * History of Present Illness Requesting Clinician: Patrick Sr MD Reason for consult: PAD , nonhealing ulcers Chief complaint: nonhealing ulcers, LLE claudication HPI: 55 year old with PMH uncontr olled DM, peripheral neuropathy, cataracts/blindness , OH in 2003, and tobacco ab use presented [...] MG/DL LAST PM ). Additional medical history: OH in 2003 Additional surgical history: None Drug [...] Do ppler study -: R posterior tibialis. Neuro/PRODUCE FIELD MERCHANDISER: alert, oriented X 3 Skin: dry, normal [...] uncontr olled DM, peripheral neuropathy, cataracts/blindness , OH in 2004, and tobacco abuse presented with f or foot ulcers and PAD AFVSS b/l foot ulcers worse on lef t side but pain and claudication worse on the right side. labs an imaging reviewed plan: will discuss with attending plans for artogram n ext week continue medical managment podiatry and infectious disease onboard. at 2013 RPT #:[id number] END OF REPORT 2020-07-01 [facility] 19:59:00-00:00 [facility] ([facility]) Vascular Surgery Consult Note REPORT#:[id number] REPORT STATUS: Signed DATE:07/01/20 TIME: 1958 PATIENT: HARJINDER COLUNGA UNIT #: [id number] ROOM/BED: [address] : 67 AGE: 55 SEX: M ATTEND: [...] uncontr olled DM, peripheral neuropathy, cataracts/blindness , [place] in 2003, and tobacco ab use presented [...] MG/DL LAST PM ). Additional medical history: OH in 2003 Additional surgical history: None Drug [...] Do ppler study -: R posterior tibialis. Neuro/PRODUCE FIELD MERCHANDISER: alert, oriented X 3 Skin: dry, normal [...] uncontr olled DM, peripheral neuropathy, cataracts/blindness , [place] in 2003, and tobacco abuse presented with [...] ervention planned. appreciate consult. at 2013 RPT #:[id number] END OF REPORT 2020-07-01 [facility] 19:59:00-00:00 [facility] ([facility]) Vascular Surgery Consult Note REPORT#:[id number] REPORT STATUS: Signed DATE:07/01/20 TIME: 1958 PATIENT: HARJINDER COLUNGA UNIT #: [id number] ROOM/BED: [facility] : 69 AGE: 55 SEX: M ATTEND: Arpit Laureano ADM AUTHOR: Eliot Vale MD R1 * ALL edits or amendments must be made on the el [employer]/computer document * Eliot Vale 07/01/201958: History of Present Illness Requesting Clinician: Patrick Sr MD Reason for consult: PAD , nonhealing ulcers Chief complaint: nonhealing ulcers, LLE claudication HPI: 55 year old with PMH uncontr olled DM, peripheral neuropathy, cataracts/blindness , [place] in 2003, and tobacco ab use presented [...] MG/DL LAST PM ). Additional medical history: OH in 2003 Additional surgical history: None Drug [...] Do ppler study -: R posterior tibialis. Neuro/PRODUCE FIELD MERCHANDISER: alert, oriented X 3 Skin: dry, normal [...] uncontr olled DM, peripheral neuropathy, cataracts/blindness , [place] in 2003, and tobacco abuse presented with [...] ervention planned. appreciate consult. at 2014 at 1024 RPT #:[id number] END OF REPORT 2020-07-01 [facility] 17:50:00-00:00 [facility] Progress Note REPORT#:[id number] REPORT STATUS: Signed DATE:07/01/20 TIME: 1750 PATIENT: HARJINDER COLUNGA UNIT #: [id number] ROOM/BED: [address] : 67 AGE: 55 SEX: M ATTEND: Arpit Laureano ADM AUTHOR: Nathanael Laureano * ALL edits or amendments must be made on the [employer]/computer document * Subjective Chief Complaint: Pain over [...] MRI LOW EXT W/O CON T LT 06/30 0730 Report Impression - Status: SIGNED Entered: 06/29/2020 [...] 50 MG DAILY 06/29 899 AC 0 07/01 PO 07/29 0901 0901 [...] of care Pain control at 2023 RPT #:[id number] END OF REPORT 2020-07-01 [facility] 11:04:00-00:00 [facility] ([facility]) Infectious Dis. Progress Note REPORT#:[id number] REPORT STATUS: Signed DATE:07/01/20 TIME: 1103 PATIENT: HARJINDER COLUNGA UNIT #: [id number] [address] AGE: 55 SEX: M [...] 1857 FOOT: Gram Stain - COMP 06/28 152 BLOOD: Blood Culture - RES 06/28 152 BLOOD: Blood Culture - RES Current Medications Sig/Bita Start time Last Medication Dose Route Stop Time Status Admin Losartan Potassium 50 MG DAILY 06/29 09 AC PO 07/29 09 0901 Nicotine 14 MG DAILY 06/29 0900 AC 07/01 TRANSDERM 07/29 0901 0902 Insulin Human Lispro 5 UNITS AC 06/29 0730 AC 0 06/30 SUBQ 07/29 0731 1841 Insulin Glargine 15 UNITS BEDTIME 06/28 2100 AC 06/30 SUBQ 07/28 210 202 Linezolid 600 MG Q12HR 06/28 2100 AC 07/01 PO 07/12 205 0901 Cefepime HCl [...] 1914 AC 06/30 Insts (1) SUBQ 07/28 1916 [...] PMH uncontrolled D M, peripheral neuropathy, cataracts/blindness, [place] in 2003, and tobacco abuse presented for [...] MD on 0 07/01/20 at 1107 RPT #:[id number] END OF REPORT 2020-07-01 [facility] 09:46:00-00:00 [facility] ([facility]) Podiatry Progress Note REPORT#:[id number] REPORT STATUS: Signed DATE:07/01/20 TIME: 945 PATIENT: HARJINDER COLUNGA UNIT #: [id number] [address] AGE: 55 SEX: M [...] ABIs report monphasic waveforms d istal to CHANDELIER MAKER, stenosis on RIGHT and similar results on left below popliteal. vascular consul yana. WOund debridement performed to beefy red bleeding tissue. Dressed with aq uacell and DSD. Procedure 07/01/20 Pre-op dx: peter foot diabetic wounds Post op dx: same Procedure: wound debridement of peter feet location: bedside Surgeon: Dr. Marito Ray Radio Communications Superintendent: Dr. Patrick Sr Complications: none EBL: < [...] DSD peter. discussed with attending at 1008 [facility] #:[id number] END OF REPORT 2020-07-01 [facility] 09:46:00-00:00 [facility] Podiatry Progress Note REPORT#:[id number] REPORT STATUS: Signed DATE:07/01/20 TIME: 945 PATIENT: HARJINDER COLUNGA UNIT #: [id number] ROOM/BED: [address] : 67 AGE: 55 SEX: M ATTEND: Arpit Laureano [facility] AUTHOR: Patrick Sr DPM R2 * ALL edits or amendments must be made on the [employer]/computer document * General VS/I O: Last Documented: [...] ABIs report monphasic waveforms d istal to CHANDELIER MAKER, stenosis on RIGHT and similar results on left below popliteal. vascular consul yana. WOund debridement performed to beefy red bleeding tissue. Dressed with aq uacell and DSD. Procedure 07/01/20 Pre-op dx: peter foot diabetic wounds Post op dx: same Procedure: wound debridement of peter feet location: bedside Surgeon: Dr. Marito Ray Radio Communications Superintendent: Dr. Patrick Sr Complications: none EBL: < [...] with attending at 1008 at 1135 RPT #:[id number] END OF REPORT 2020-06-30 [facility] 22:00:00-00:00 [facility] Progress Note REPORT#:[id number] REPORT STATUS: Signed DATE:06/30/20 TIME: 2199 PATIENT: HARJINDER COLUNGA UNIT #: [id number] ROOM/BED: [address] : 67 AGE: 55 SEX: M ATTEND: Arpit Laureano ADM AUTHOR: Nathanael Laureano ta * ALL edits or amendments must be made on the el [employer]/computer document * Subjective Chief Complaint: Pain over [...] terial disease. Impression By: MerRHNeo Wen MD Recent Impressions: RADIOLOGY - XR [...] detection of o steomyelitis. Impression By: [email or web address] Guero Bai MD [facility] - MRI [...] 06/29 0630 AC 0 06/30 SUBQ 07/29 0731 184 Insulin Glargine [...] 98.4 71 16 118/72 87.3 96 06/29 2301 98.2 72 16 96/57 70.0 93 PATIENT [...] of care Pain control at 1504 RPT #:[id number] END OF REPORT 2020-06-30 [facility] 18:01:00-00:00 [facility] ([facility]) Infectious Dis. Progress Note REPORT#:[id number] REPORT STATUS: Signed DATE:06/30/20 TIME: 1800 PATIENT: HARJINDER COLUNGA UNIT #: [id number] ROOM/BED: [address] : 67 AGE: 55 SEX: M ATTEND: Divine Laureano ADM AUTHOR: Anam Velez MD * ALL edits or amendments must be made on the el [employer]/computer document * Subjective Chief Complaint: 06-30-2020 FEELS [...] 50 MG DAILY 06/29 899 AC 0 06/30 PO 07/29 0901 1019 Nicotine 14 MG DAILY 06/29 899 AC 06/30 TRANSDERM 07/29 0901 1023 Insulin Human Lispro 5 UNITS AC 06/29 729 AC 0 3/12 SUBQ 07/29 0731 1320 Insulin Glargine 15 UNITS BEDTIME 06/28 2099 AC 06/29 SUBQ 07/28 2101 2106 Linezolid 600 MG Q12HR 06/28 2099 AC 06/30 PO 07/12 2058 1019 Cefepime HCl 1 GM Q8H 06/28 2029 AC 06/30 Sterile Water 10 ML IV 07/12 2028 132 Clonidine HCl 0.1 MG Q6H PRN PRN [...] Impression By: MerHV2 - Michael Bai MD Last Documented: Result Date Time [...] PMH uncontrolled D M, peripheral neuropathy, cataracts/blindness, [place] in 2003, and tobacco abuse presented for [...] MD on 0 06/30/20 at 1804 RPT #:[id number] END OF REPORT 2020-06-30 [facility] 08:46:00-00:00 [facility] ([facility]) Podiatry Progress Note REPORT#:[id number] REPORT STATUS: Signed DATE:06/30/20 TIME: 08 PATIENT: HARJINDER COLUNGA UNIT #: [id number] ROOM/BED: [address] : 67 AGE: 55 SEX: M ATTEND: Arpit Laureano ADM AUTHOR: Patrick Sr DPM R2 * ALL edits or amendments must be made on the el [employer]/computer document * General VS/I O: Last Documented: [...] with attending at 0853 at 1135 RPT #:[id number] END OF REPORT 2020-06-30 [facility] 08:46:00-00:00 [facility]) Podiatry Progress Note REPORT#:[id number] REPORT STATUS: Signed DATE:06/30/20 TIME: 08 PATIENT: HARJINDER COLUNGA UNIT #: [id number] ROOM/BED: [address] : 67 AGE: 55 SEX: M ATTEND: Arpit Laureano ADM AUTHOR: Patrick Sr DPM R2 * ALL edits or amendments must be made on the [employer]/computer document * General VS/I O: Last Documented: [...] wet-to-dry. discussed with attending at 0853 RPT #:[id number] END OF REPORT 2020-06-29 [facility] 23:21:00-00:00 [facility] Progress Note REPORT#:[id number] REPORT STATUS: Signed DATE:06/29/20 TIME: 2320 PATIENT: HARJINDER COLUNGA UNIT #: [id number] ROOM/BED: [address] : 67 AGE: 55 SEX: M ATTEND: Arpit Laureano AUTHOR: Nathanael Laureano * ALL edits or amendments must be made on the [employer] document * Subjective Chief Complaint: Pain over [...] % (Auto) (20.5 - 45.5 %) 24.1 [place] % (Auto) (5.5 - 11.7 %) 7.7 Eos % (Auto) (0.9 - 2.9 %) 1.5 Baso % (Auto) (0.2 - 1.0 %) 0.5 Neut # (Auto) (2.2 - 4.8 x10 3/uL) 4.30 Lymph # (Auto) (1.3 - 2.9 x10 3/uL) 1.57 [place] # (Auto) (0.3 - 0.8 x10 3/uL) [...] LOW EXT W/O CON T LT 06/29 08 Report Impression - Status: SIGNED Entered: 06/29/2020 [...] 50 MG DAILY 06/29 899 AC 0 06/29 PO 07/29 900 0846 Nicotine 14 MG DAILY 06/29 899 AC 06/29 TRANSDERM 07/29 0901 0847 Insulin Human Lispro 5 UNITS AC 06/29 0730 AC 0 06/29 SUBQ 07/29 0731 1719 Insulin Glargine 15 UNITS BEDTIME 06/28 2100 AC 06/29 SUBQ 07/28 2101 2106 Linezolid 600 MG Q12HR 06/28 2099 AC 06/29 PO 07/12 Sodium Chloride 5 ML Q12HR 06/28 2100 DC 06/28 IV 06/290 4 Cefepime HCl 1 GM Q8H 06/28 2029 [...] 2301 98.2 72 16 96/57 70.0 93 06/30 1947 98.2 76 16 104/67 79.5 91 06/29 [...] of care Pain control at 1942 RPT #:[id number] END OF REPORT 2020-06-29 [facility] 09:35:00-00:00 [facility] ([facility]) Infect Disease Consult Note REPORT#:[id number] REPORT STATUS: Signed DATE:06/29/20 TIME: 934 PATIENT: KEANUHARJINDER UNIT #: [id number] ROOM/BED: [address] : 69 AGE: 55 SEX: M ATTEND: Arpit Laureano ADM AUTHOR: Harjinder Garner MD R1 * ALL edits or amendments must be made on the [employer]/computer document * History of Present Illness HPI: [id number] w/ PMH uncontrolled D M, peripheral neuropathy, cataracts/blindness, [place] in 2003, and tobacco abuse presented for [...] MG/DL LAST PM ). Additional medical history: [place] in 2003 Additional surgical history: None Drug [...] Temp 98.6 06/29 728 Pulse 75 06/29 07 Resp [...] to the BL leg above the ankle. Neuro/PRODUCE FIELD MERCHANDISER: alert, oriented X 3 Results Findings/Data: Laboratory [...] (20.5 - 45.5 %) 24.1 17.3 L [place] % (Auto) (5.5 - 11.7 %) 7.7 6.0 Eos % (Auto) (0.9 - 2.9 %) 1.5 0.9 Baso % (Auto) (0.2 - 1.0 %) 0.5 0.7 Neut # (Auto) (2.2 - 4.8 x10 3/uL) 4.30 5.68 H Lymph # (Auto) (1.3 - 2.9 x10 3/uL) 1.57 1.32 [place] # (Auto) (0.3 - 0.8 x10 3/uL) [...] pH (5.0 - 8.0) 5.0 Ur Specific [place] (<1.030) 1.029 Urine Protein (Negative mg/dL) 30 [...] PMH uncontrolled D M, peripheral neuropathy, cataracts/blindness, [place] in 2003, and tobacco abuse presented for [...] Attestation needed: teaching physician at 1003 RPT #:[id number] END OF REPORT 2020-06-29 [facility] 09:35:00-00:00 [facility] ([facility]) Infect Disease Consult Note REPORT#:[id number] REPORT STATUS: Signed DATE:06/29/20 TIME: 934 PATIENT: HARJINDER COLUNGA UNIT #: [id number] ROOM/BED: [address] : 67 AGE: 55 SEX: M ATTEND: Arpit Laureano [facility] AUTHOR: Harjinder Garner MD R1 * ALL edits or amendments must be made on the [employer]/computer document * Harjinder Garner 06/29/20 0935: History of Present Illness HPI: [id number] w/ PMH uncontrolled D M, peripheral neuropathy, cataracts/blindness, [place] in 2003, and tobacco abuse presented for [...] MG/DL LAST PM ). Additional medical history: [place] in 2003 Additional surgical history: None Drug [...] to the BL leg above the ankle. Neuro/PRODUCE FIELD MERCHANDISER: alert, oriented X 3 Results Findings/Data: Laboratory [...] (20.5 - 45.5 %) 24.1 17.3 L [place] % (Auto) (5.5 - 11.7 %) 7.7 6.0 Eos % (Auto) (0.9 - 2.9 %) 1.5 0.9 Baso % (Auto) (0.2 - 1.0 %) 0.5 0.7 Neut # (Auto) (2.2 - 4.8 x10 3/uL) 4.30 5.68 H Lymph # (Auto) (1.3 - 2.9 x10 3/uL) 1.57 1.32 [place] # (Auto) (0.3 - 0.8 x10 3/uL) [...] pH (5.0 - 8.0) 5.0 Ur Specific [place] (<1.030) 1.029 Urine Protein (Negative mg/dL) 30 [...] PMH uncontrolled D M, peripheral neuropathy, cataracts/blindness, [place] in 2003, and tobacco abuse presented for [...] MD on 0 06/29/20 at 1505 RPT #:[id number] END OF REPORT 2020-06-29 [facility] 07:33:00-00:00 [facility] ([facility]) Podiatry Progress Note REPORT#:[id number] REPORT STATUS: Signed DATE:06/29/20 TIME: 732 PATIENT: HARJIDNER COLUNGA UNIT #: [id number] ROOM/BED: [address] : 67 AGE: 55 SEX: M ATTEND: Arpit Laureano ADM AUTHOR: Patrick Sr DPM R2 * ALL edits or amendments must be made on the [employer]/computer document * General VS/I O: Last Documented: Result Date Time Pulse Ox 97 06/29 728 B/P 142/88 06/29 728 B/P Mean 105.8 06/29 728 Temp 37.0 06/29 0729 Pulse 75 06/29 0729 Resp [...] with attending at 0738 at 1135 RPT #:[id number] END OF REPORT 2020-06-29 [facility] 07:33:00-00:00 [facility] Podiatry Progress Note REPORT#:[id number] REPORT STATUS: Signed DATE:06/29/20 TIME: 732 PATIENT: HARJINDER COLUNGA UNIT #: [id number] ROOM/BED: [address] : 67 AGE: 55 SEX: M ATTEND: Arpit Laureano [facility] AUTHOR: Patrick Sr DPM R2 * ALL edits or amendments must be made on the el [employer]/computer document * General VS/I O: Last Documented: [...] Betadine wet-to-dry. discussed with attending at 0738 [facility] #:[id number] END OF REPORT 2020-06-28 [id number] [facility] [place] [address] PATIENT NAME: HARJINDER COLUNGA ADMIT DATE: 06/28/20 ACCOUNT NO: [id number] ROOM NO: 110 AGE: 55 REPORT TYPE: HISTORY AND PHYSICAL SEX: M ADMITTING PHYSICIAN:Nathanael Laureano ATTENDING PHYSICIAN:Nathanael Laureano ADMISSION DATE: 06/28/2020 CHIEF COMPLAINT: The patient was brought in with wound over the left foot. HISTORY OF PRESENT ILLNESS: This is a 55 -year-old male. The patient is legally blind, who moved from [facility] a year ago and patient states he [...] plan. Dictated By: Nathanael Laureano MD WT: HP:ALEC/THU.01/NTS Conf#: [id number]/DID#: [id number] Authenticated by MD Daryl Toro n 06/29/2020 09:55:13 PM at 2155 PATIENT NAME: HARJINDER COLUNGA 917 2020-06-28 [facility] 18:47:00-00:00 [facility] ([facility]) History Physical - Adult REPORT#:[id number] REPORT STATUS: Signed DATE:06/28/20 TIME: 1846 PATIENT: HARJINDER COLUNGA UNIT #: [id number] ROOM/BED: [place] [address] : 67 AGE: 55 SEX: M ATTEND: Arpit Laureano ADM AUTHOR: Nathanael Laureano * ALL edits or amendments must be made on the [employer]/computer document * History Past medical history: Reports: Diabetes mellitus (BS 168 MG/DL LAST PM ). Additional medical history: [place] in 2003 Additional surgical history: None Drug use: Denies recreational drugs Smoking status: Smoking status for patients 13 years old or old er: Current every day smoker Other social history: Hx of substance and alcoho l abuse Medication/Allergy-Vaccine Hx Allergies: Coded Allergies: No Known Allergies (10/08/19) at 1937 RPT #:[id number] END OF REPORT 2020-06-28 [id number] [facility] [place] [address] PATIENT NAME: HARJINDER COLUNGA ADMIT DATE: 06/28/20 ACCOUNT NO: [id number] ROOM NO: [facility] AGE: 55 REPORT TYPE: CONSULTATION SEX: M [...] for Marito Ray DPM WT: CON:CHOLLY/JOSELIN/LOTTIE Conf#: [id number]/DID#: [id number] PATIENT NAME: HARJINDER COLUNGA 917 Authenticated by Patrick Sr DPM On 06/19 07:09:44 AM Authenticated by Marito Ray DPM On 07/05/2020 11:31:10 AM at 1131 at 1131 PATIENT NAME: HARJINDER COLUNGA 917 2020-06-28 [facility] 16:47:00-00:00 [facility] ([facility]) EMERGENCY PROVIDER REPORT REPORT#:[id number] REPORT STATUS: Signed DATE:06/28/20 TIME: 1646 PATIENT: HARJINDER COLUNGA UNIT #: [id number] [place] [facility] AGE: 55 SEX: M PCP PHYS: No Primary or Family Ph ysician SERVICE AUTHOR: Giovany Landa MD R1 * ALL edits or amendments must be made on the [employer]/computer document * Giovany Landa V 06/28/20 1647: [...] MG/DL LAST PM ). Additional Medical History [place] in 2003 Additional Surgical History None Drug [...] L foot ulcer on ball of foot [id number] wit h scattered ulcer throughout the foot. [...] Consultation Consultation Referral/Consult Name Obed Lopez DPM Die Cast Supervisor Called Podiatry Requested Call Time 1656 Requested Call Date 06/28/20 Call Returned Call returned Call Returned Time 1656 Call Returned Date 06/28/20 Die Cast Supervisor Will see patient Patient Discharge Departure Disposition Decision Admit Admit Physician Name Nathanael Laureano Rasheed 06/28/20 1716: Physical Exam Vital Signs Vital Signs First Documented: Result Date Time O2 Delivery Room air 06/28 1458 Pulse Ox 97 / 1503 Temp 37.4 / 1503 Pulse 109 / 1503 Resp 18 06/28 1503 B/P 129/81 / 1504 B/P Mean 97.0 06/28 1504 Last Documented: Result Date Time B/P 129/81 / 1504 B/P Mean 97.0 / 1504 Pulse 106 / 1504 Resp 18 06/28 1504 Pulse Ox 97 / 1503 Temp 37.4 / 1503 O2 Delivery Room air 06/28 1458 [...] (Auto) (20.5 - 45.5 %) 17.3 L [place] % (Auto) (5.5 - 11.7 %) 6.0 Eos % (Auto) (0.9 - 2.9 %) 0.9 Baso % (Auto) (0.2 - 1.0 %) 0.7 Neut # (Auto) (2.2 - 4.8 x10 3/uL) 5.68 H Lymph # (Auto) (1.3 - 2.9 x10 3/uL) 1.32 [place] # (Auto) (0.3 - 0.8 x10 3/uL) 0.46 Eos # (Auto) (0.0 - 0.2 x10 3/uL) 0.07 Baso # (Auto) (0.0 - 0.1 x10 3/uL) 0.05 Immature Gran % (0.0 - 2.0 %) 0.4 Nucleated RBC % (0 - 1.0 %) 0.0 Urines Urine Color (Yellow) Yellow Urine Appearance (Clear) Clear Urine pH (5.0 - 8.0) 5.0 Ur Specific [place] (<1.030) 1.029 Urine Protein (Negative mg/dL) 30 [...] Room air 06/28 1458 Pulse Ox 97 / 1503 Temp 37.4 / 1503 Pulse 109 /10 1503 Resp 18 06/28 1503 B/P 129/81 /10 1504 B/P Mean 97.0 06/28 1504 Last Documented: Result Date Time B/P 129/81 /10 1504 B/P Mean 97.0 /10 1504 Pulse 106 /10 1504 Resp 18 06/28 1504 Pulse Ox 97 /10 1503 Temp 37.4 06/28 1503 O2 Delivery [...] Landa MD R1 on at 2008 RPT #:[id number] END OF REPORT 2020-06-28 [facility] 16:47:00-00:00 [facility] ([facility]) EMERGENCY PROVIDER REPORT REPORT#:[id number] REPORT STATUS: Signed DATE:06/28/20 TIME: 1646 PATIENT: HARJINDER COLUNGA UNIT #: [id number] ROOM/BED: C1101-A AGE: 55 SEX: M PCP PHYS: No Primary or Family Ph ysician SERVICE AUTHOR: Giovany Landa MD R1 * ALL edits or amendments must be made on the [employer]/computer document * Giovany Landa V 06/28/20 1647: [...] MG/DL LAST PM ). Additional Medical History [place] in 2003 Additional Surgical History None Drug [...] L foot ulcer on ball of foot [id number] wit h scattered ulcer throughout the foot. [...] (Auto) (20.5 - 45.5 %) 17.3 L [place] % (Auto) (5.5 - 11.7 %) 6.0 Eos % (Auto) (0.9 - 2.9 %) 0.9 Baso % (Auto) (0.2 - 1.0 %) 0.7 Neut # (Auto) (2.2 - 4.8 x10 3/uL) 5.68 H Lymph # (Auto) (1.3 - 2.9 x10 3/uL) 1.32 [place] # (Auto) (0.3 - 0.8 x10 3/uL) 0.46 Eos # (Auto) (0.0 - 0.2 x10 3/uL) 0.07 Baso # (Auto) (0.0 - 0.1 x10 3/uL) 0.05 Immature Gran % (0.0 - 2.0 %) 0.4 Nucleated RBC % (0 - 1.0 %) 0.0 Urines Urine Color (Yellow) Yellow Urine Appearance (Clear) Clear Urine pH (5.0 - 8.0) 5.0 Ur Specific [place] (<1.030) 1.029 Urine Protein (Negative mg/dL) 30 [...] 06/28 1500 DC 06/28 Sulbactam Sodium IV 03/10 1529 1523 Sodium Chloride 100 ML Electrolytic, [...] Consultation Consultation Referral/Consult Name Obed Lopez DPM Die Cast Supervisor Called Podiatry Requested Call Time 1657 Requested Call Date 06/28/20 Call Returned Call returned Call Returned Time 1657 Call Returned Date 06/28/20 Die Cast Supervisor Will see patient Patient Discharge Departure Disposition Decision Admit Admit Physician Name GeorgiNathanael Wojciech Montes 06/28/20 1716: Physical Exam Vital Signs Vital Signs First Documented: Result Date Time O2 Delivery Room air 06/28 1458 Pulse Ox 97 / 1503 Temp 37.4 10 1503 Pulse 109 03/10 1503 Resp 18 06/28 1503 B/P 129/81 /10 1504 B/P Mean 97.0 06/28 1504 Last Documented: Result Date Time B/P 129/81 10 1504 B/P Mean 97.0 10 1504 Pulse [...] Room air 06/28 1458 Pulse Ox 97 10 1503 Temp 37.4 03/10 1503 Pulse 109 /10 1503 Resp 18 /10 1503 B/P 129/81 03/10 1504 B/P Mean 97.0 /10 1504 Last Documented: Result Date Time B/P 129/81 03/10 1504 B/P Mean 97.0 03/10 1504 Pulse 106 03/10 1504 Resp 18 /10 1504 Pulse Ox 97 / 1503 Temp 37.4 / 1503 O2 Delivery Room air 06/28 1458 [...] Landa MD R1 on at 2008 RPT #:[id number] END OF REPORT 2020-06-28 [facility] 16:47:00-00:00 [facility] ([facility]) EMERGENCY PROVIDER REPORT REPORT#:[id number] REPORT STATUS: Signed DATE:06/28/20 TIME: 1646 PATIENT: HARJINDER COLUNGA UNIT #: [id number] ROOM/BED: C.1101-A AGE: 55 SEX: M PCP PHYS: No Primary or Family Ph ysician SERVICE AUTHOR: Giovany Landa MD R1 * ALL edits or amendments must be made on the [employer]/computer document * Giovany Landa V 06/28/201646: HPI-General [...] are a. General Initial Greet Date/Time 06/28/20 9154 Presentation Chief Complaint Diabetic foot wound Hx [...] MG/DL LAST PM ). Additional Medical History [place] in 2003 Additional Surgical History None Drug [...] L foot ulcer on ball of foot [id number] wit h scattered ulcer throughout the foot. [...] (Auto) (20.5 - 45.5 %) 17.3 L [place] % (Auto) (5.5 - 11.7 %) 6.0 Eos % (Auto) (0.9 - 2.9 %) 0.9 Baso % (Auto) (0.2 - 1.0 %) 0.7 Neut # (Auto) (2.2 - 4.8 x10 3/uL) 5.68 H Lymph # (Auto) (1.3 - 2.9 x10 3/uL) 1.32 [place] # (Auto) (0.3 - 0.8 x10 3/uL) 0.46 Eos # (Auto) (0.0 - 0.2 x10 3/uL) 0.07 Baso # (Auto) (0.0 - 0.1 x10 3/uL) 0.05 Immature Gran % (0.0 - 2.0 %) 0.4 Nucleated RBC % (0 - 1.0 %) 0.0 Urines Urine Color (Yellow) Yellow Urine Appearance (Clear) Clear Urine pH (5.0 - 8.0) 5.0 Ur Specific [place] (<1.030) 1.029 Urine Protein (Negative mg/dL) 30 [...] IV 06/29 0540 Consultation Consultation Referral/Consult Name Romulo Lopezry Cole DPM Die Cast Supervisor Called Podiatry Requested Call Time 165 Requested Call Date 06/28/20 Call Returned Call returned Call Returned Time 1656 Call Returned Date 06/28/20 Die Cast Supervisor Will see patient Patient Discharge Departure Disposition Decision Admit Admit Physician Name Nathanael Laureano Rasheed 06/28/20 1716: Physical Exam Vital Signs Vital Signs First Documented: Result Date Time O2 Delivery Room air 06/28 1458 Pulse Ox 97 /10 1503 Temp 37.4 03/10 1503 Pulse 109 [...] 97 /10 1503 Temp 37.4 03/10 1503 Pulse 109 03/10 1503 Resp 18 10 1503 B/P 129/81 03/10 1504 B/P Mean 97.0 10 1504 Last Documented: Result Date Time B/P 129/81 /10 1504 B/P Mean 97.0 03/10 1504 Pulse 106 06/28 1504 Resp 18 [...] 1748 Disposition Decision Admit Admit Physician Name Toni,Ahorville Helton MD Admit Physician Hospitalist Request Time [...] Wojciech Dolan DO on 03/11 at 0035 [facility] #:[id number] END OF REPORT 2020-06-28 [facility] 15:11:00-00:00 [facility] ([facility]) EMERGENCY PROVIDER REPORT REPORT#:[id number] REPORT STATUS: Signed DATE:06/28/20 TIME: 1511 PATIENT: HARJINDER COLUNGA UNIT #: [id number] [address] AGE: 55 SEX: M PCP PHYS: No Primary or Family Ph ysician SERVICE AUTHOR: Mi Ellis ASSOCIATE DESIGNER * ALL edits or amendments must be made on the [employer]/computer document * Provider in Triage - Adult Provider in Triage Initial Greet Date/Time 06/28/20 6063 Greet Note I have greeted and performed [...] MG/DL LAST PM ). Additional Medical History [place] in 2003 Additional Surgical History None Patient [...] NP on at 1512 at 2344 RPT #:[id number] END OF REPORT 2020-06-28 [facility] 15:11:00-00:00 [facility] ([facility]) EMERGENCY PROVIDER REPORT REPORT#:[id number] REPORT STATUS: Signed DATE:06/28/20 TIME: 151 PATIENT: HARJINDER COLUNGA UNIT #: [id number] ROOM/BED: AGE: 55 SEX: M PCP PHYS: No Primary or Family Ph ysician SERVICE DT: AUTHOR: Mi Ellis NP * ALL edits or amendments must be made on the [employer]/computer document * Provider in Triage - Adult Provider in Triage Initial Greet Date/Time 06/28/20 6097 Greet Note I have greeted and performed [...] MG/DL LAST PM ). Additional Medical History [place] in 2003 Additional Surgical History None Patient History FATHER, . Family History: Heart disease MOTHER Family History: Diabetes Family History: Heart disease Drug Use Denies recreational drugs Smoking status: Smoking status for patients 13 years old or old er: Current every day smoker Other Social History Hx of substance and alcohol abuse Electronically Signed by Mi Ellis NP on at 1512 RPT #:[id number] END OF REPORT 2020-02-27 [facility] 14:13:00-00:00 [facility] ([facility]) EMERGENCY PROVIDER REPORT REPORT#:[id number] REPORT STATUS: Signed DATE:02/27/20 TIME: 1413 PATIENT: HARJINDER COLUNGA UNIT #: [id number] ROOM/BED: AGE: 54 SEX: M PCP PHYS: No Primary or Family Ph ysician SERVICE AUTHOR: Rod Cerda NP * ALL edits or amendments must be made on the [employer] document * HPI-Rash/Abscess/Cellulitis General Confirmed Patient Yes [...] MG/DL LAST PM ). Additional Medical History [place] in 2003 Additional Surgical History None Drug [...] 10-25 MG Recent Impressions: ULTRASOUND - US [facility] 02/26 1518 Report Impression - Status: SIGNED Entered: 02/27/2020 1550 IMPRESSION: 1. Soft tissue edema without discrete dominant f luid collection or cystic or solid mass lesion. Impression By: [email or web address] - Donaldo Tang M.D. Lab Statement Laboratory studies reviewed and considered in [facility] medical decision-making. Re-Evaluation MDM Re-Evaluation/Progress Re-Evaluation/Progress [...] Pulse Ox 98 02/27 1600 B/P 125/80 02/26 1600 B/P Mean [...] WITH MEALS Patient Instructions ED Cellulitis Referrals [facility] Departure Forms WORK/SCHOOL EXCUSE VARIABLE Discharge [...] symptoms should prompt an immediate return to [facility] or the closest emergency department or a call to 911. at 0750 RPT #:[id number] END OF REPORT 2020-02-27 [facility] 14:13:00-00:00 [facility] ([facility]) EMERGENCY PROVIDER REPORT REPORT#:[id number] REPORT STATUS: Signed DATE:02/27/20 TIME: 1412 PATIENT: HARJINDER COLUNGA UNIT #: [id number] ROOM/BED: AGE: 54 SEX: M PCP PHYS: No Primary or Family Ph ysician SERVICE AUTHOR: Rod Cerda NP * ALL edits or amendments must be made on the [employer]/computer document * Rod Cerda 02/27/20 1413: HPI-Rash/Abscess/Cellulitis [...] MG/DL LAST PM ). Additional Medical History [place] in 2003 Additional Surgical History None Drug [...] Temp 98.1 02/26 1358 Pulse 96 02/26 135 Resp 16 02/26 1358 Last Documented: Result Date Time Pulse Ox 98 02/26 1600 B/P 125/80 02/26 1600 B/P Mean 95 02/26 1600 O2 Delivery Room air 02/27 1600 Temp 98.0 02/27 1600 Pulse 89 02/26 1600 Resp [...] MG Recent Impressions: [facility] 02/26 1518 Report Impression - Status: [...] WITH MEALS Patient Instructions ED Cellulitis Referrals [facility] Departure Forms WORK/SCHOOL EXCUSE VARIABLE Discharge Note [...] symptoms should prompt an immediate return to [facility] or the closest emergency department [...] were reviewe d. I agree with this PA/audio/video engineer findings, exam and plan. at 0750 at 0310 RPT #:[id number] END OF REPORT 2019-10-08 [facility] 12:43:00-00:00 [facility] ([facility]) EMERGENCY PROVIDER REPORT REPORT#:[id number] REPORT STATUS: Signed DATE:10/08/19 TIME: 1243 PATIENT: HARJINDER COLUNGA UNIT #: [id number] ROOM/BED: AGE: 54 SEX: M PCP PHYS: No Primary or Family Ph ysician SERVICE AUTHOR: Brennan Dupont MD * ALL edits or amendments must be made on the [employer]/computer document * HPI-General Illness Free Text HPI Notes Free Text HPI Notes 54-year-old male history of diabetes, heart dise ase, who presents with right- sided flank pain. Patient states flank pain is b een worsening over last few days and thinks it is his kidneys. Patient state s he has not urinated today. Patient also has elevated blood sugar. H magdaleno has not taken his metformin for past [...] MG/DL LAST PM ). Additional Medical History [place] in 2003 Additional Surgical History None Drug [...] clubbing, edema, Musculoskeletal: normal inspection, normal tone Neuro/PRODUCE FIELD MERCHANDISER: alert oriented x 3, nonfocal Skin: warm, [...] (Auto) (25.0 - 55.0 %) 16.6 L [place] % (Auto) (0.0 - 10.0 %) 6.5 Eos % (Auto) (0.0 - 5.0 %) 4.0 Baso % (Auto) (0.0 - 1.0 %) 0.2 Neut # (Auto) (1.8 - 7.7 K/mm3) 4.11 Lymph # (Auto) (1.0 - 5.0 K/mm3) 0.95 L [place] # (Auto) (0 - 0.8 K/mm3) 0.37 Eos # (Auto) (0.0 - 0.5 K/mm3) 0.23 Baso # (Auto) (0.0 - 0.2 K/mm3) 0.01 Add Manual Diff NO Urines Urine Color (YELLOW) YELLOW Urine Appearance (CLEAR) SLIGHTLY HAZY H Urine pH (5.0 - 8.0) 6.0 Ur Specific [place] (1.001 - 1.035) 1.020 Urine Protein (Neg [...] abdominal or pelvic abno rmalities. Location code: [facility] Impression By: Brenda Mcdaniel M.D. Re-Evaluation MDM [...] Referrals Tu Herndon MD at 1723 RPT #:[id number] END OF REPORT
[2022-12-10 23:53] LABS: Protime INR 1.37
[2022-12-10 23:55] LABS: Absolute Lymphocytes (CBC) 0.8 K/uL (0.7-4.9); Hematocrit 29.4 % (39.6-49.0); Lymphocytes % 12.4 % (15.3-44.8); MPV 8.1 fL (7.6-11.3); Platelets 298 thou/uL (152-406); RBC Red Blood Cell Count 3.38 M/uL (4.33-5.43)
[2022-12-10] MEDS ORDERED: HYDROCODONE/APAP 7.5/325 MG TAB ONE (23:56)
[2022-12-11 00:09] LABS: Albumin 2.8 g/dL (3.4-5.0); Bilirubin Total 0.3 mg/dL (0.2-1.0); Potassium 4.4 mEq/L (3.5-5.1); Protein, Total 7.3 g/dL (6.4-8.2)
--- NOTE | 2022-12-11 00:50 | ER ---
Nurse's Notes [facility] Name: Shivam Block Age: 57 yrs Sex: Male : 1965 Arrival Date: 12/10/2022 Time: 22:15 Bed 14 Private MD: Diagnosis: Cellulitis of left lower limb;Osteomyelitis, unspecified Presentation: 12/10 22:24 Chief complaint: Patient states: wound to left knee began x 3 days ago. Coronavirus kl screen: Vaccine status: Patient reports being unvaccinated. Ebola Screen: Patient negative for fever greater than or equal to 101.5 degrees Fahrenheit, and additional compatible Ebola Virus Disease symptoms. Initial Sepsis Screen: Does the patient meet any 2 criteria? No. Patient's initial sepsis screen is negative. Does the patient have a suspected source of infection? Yes:. Risk Assessment: Do you want to hurt yourself or someone else? Patient reports no desire to harm self or others. 22:24 Method Of Arrival: Wheelchair 22:24 Acuity: TERRANCE 3 12/11 00:59 Onset of symptoms is unknown. lg3 Triage Assessment: 12/10 22:29 General: Appears in no apparent distress. Behavior is calm, cooperative. Pain: Complains of pain in left knee Pain currently is 9 out of 10 on a pain scale. Derm: Wound noted left knee Wound is open draining. 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 - Social history:: Smoking status: Patient reports the use of cigarette tobacco products, smokes one pack cigarettes per day. Screenin:35 [facility] ED Fall Risk Assessment (Adult) History of falling in the last 3 months, lg3 including since admission No falls in past 3 months (0 pts). Abuse screen: Denies threats or abuse. Denies injuries from another. Nutritional screening: No deficits noted. Tuberculosis screening: No symptoms or risk factors identified. Assessment: 23:35 General: Appears in no apparent distress. uncomfortable, Behavior is calm, cooperative. lg3 Pain: Complains of pain in left knee Pain does not radiate. Pain currently is 9 out of 10 on a pain scale. Neuro: No deficits noted. Garcia Agitation-Sedation Scale (RASS): 0 - Alert and Calm Level of Consciousness is awake, alert, obeys commands, Oriented to person, place, time, situation. Cardiovascular: No deficits noted. Denies chest pain, shortness of breath, Capillary refill < 3 seconds Clubbing of nail beds is absent JVD is absent Patient's skin is warm and dry. Respiratory: No deficits noted. Airway is patent Respiratory effort is even, unlabored, Respiratory pattern is regular, symmetrical. GI: No deficits noted. No signs and/or symptoms were reported involving the gastrointestinal system. Abdomen is round non-distended. : No deficits noted. No signs and/or symptoms were reported regarding the genitourinary system. EENT: No deficits noted. No signs and/or symptoms were reported regarding the EENT system. Derm: Skin is intact, is healthy with good turgor, Skin is dry, Skin is normal, Skin temperature is warm Wound noted left knee Reports pain. Musculoskeletal: Amputation of bilateral BKA. Circulation, motion, and sensation intact. Range of motion: intact in all extremities. 12/11 00:37 Reassessment: Patient appears in no apparent distress at this time. No changes from lg3 previously documented assessment. Patient and/or family updated on plan of care and expected duration. Pain level reassessed. Patient is alert, oriented x 3, equal unlabored respirations, skin warm/dry/pink. Vital Signs: 12/10 22:24 BP 103 / 52; Pulse 77; Resp 18; Temp 98.3(TE); Pulse Ox 100% on R/A; Pain 9/10; kl 23:44 Weight 86.18 kg (R); lg3 12/11 00:37 BP 114 / 68; Pulse 71; Resp 17 S; Pulse Ox 100% on R/A; lg3 12/10 22:24 Pain Scale: Adult kl ED Course: 12/10 22:21 Patient arrived in ED. kj1 22:24 Sonia Vivar FNP-C is PHCP. kb 22:24 Juliocesar Saba MD is Attending Physician. kb 22:26 Triage completed. kl 23:35 Patient has correct armband on for positive identification. Placed in gown. Bed in low lg3 position. Call light in reach. Side rails up X2. Client placed on continuous cardiac and pulse oximetry monitoring. NIBP monitoring applied. air sampling and monitoring on. Door closed. Noise minimized. Warm blanket given. Family accompanied patient. 23:35 Patient maintains SpO2 saturation greater than 95% on room air. lg3 23:43 Tib Fib Left XRAY In Process Unspecified. EDMS 23:44 Lucia Krueger, RN is Primary Nurse. lg3 12/11 00:38 Blood Culture Adult (2) Sent. lg3 00:38 Inserted ultrasound guided 20G to right upper arm. lg3 00:41 Inserted ultrasound guided 20G to left AC. lg3 00:49 Brennan Elaine is Hospitalizing Provider. kb 00:59 Arm band placed on right wrist. lg3 00:59 No provider procedures requiring assistance completed. lg3 01:08 Wound Culture Sent. lg3 01:45 Provided Education on: hospital admission/procedures. lg3 01:45 Patient admitted, IV remains in place. intact, No redness/swelling at site. lg3 Administered Medications: 12/10 00:40 Drug: NS 0.9% IV 1000 ml Route: IV; Rate: 1000 ml; Site: right upper arm; lg3 12/11 01:45 Follow up: IV Status: Completed infusion; IV Intake: 1000ml lg3 12/10 23:57 Drug: Hydrocodone-Acetaminophen PO (7.5 mg-325 mg) 1 tabs Route: PO; lg3 12/11 00:43 Follow up: Response: No adverse reaction; Pain is decreased lg3 00:40 Drug: vancoMYCIN IVPB 1 grams Route: IVPB; Infused Over: 2 hrs; Site: right upper arm; lg3 01:45 Follow up: IV Status: Infusion continued upon admission lg3 Medication: 01:45 VIS not applicable for this client. lg3 Intake: 01:45 IV: 1000ml; Total: 1000ml. lg3 Outcome: 00:50 Decision to Hospitalize by Provider. kb 01:45 Admitted to Med/surg accompanied by nurse, via wheelchair, room 223, Report called to lg3 Orestes 01:45 Condition: stable 01:45 Instructed on the need for admit, Demonstrated understanding of instructions. 02:40 Patient left the ED. lg3 Signatures: Dispatcher [employer] EDSonia May, TARAN PÉREZ-Veda Rosa, RN RN Sirisha Sunshine kj1 Lucia Krueger RN RN lg3 Corrections: (The following items were deleted from the chart) 00:57 00:38 Inserted ultrasound guided midline inserted to left upper arm lg3 lg3 00:58 00:38 Inserted ultrasound guided 20G inserted to right upper arm lg3 lg3
--- NOTE | 2022-12-11 00:50 | EDPHYS ---
Physician Documentation [facility] Name: Shivam Block Age: 57 yrs Sex: Male : 1965 Arrival Date: 12/10/2022 Time: 22:15 Bed 14 Private MD: ED Physician Juliocesar Saba HPI: 12/10 23:54 This 57 yrs old Male presents to ER via Wheelchair with complaints of Wound Infection. kb 23:54 wound just below left knee. Description: erythematous, wound. Onset: The kb symptoms/episode began/occurred 1 week(s) ago. Possible cause(s): unknown. Associated signs and symptoms: Pertinent positives: erythema, wound. Modifying factors: the symptoms are alleviated by nothing, the symptoms are aggravated by nothing. Severity of symptoms: At their worst the symptoms were mild, in the emergency department the symptoms are unchanged. The patient has not experienced similar symptoms in the past. The patient has not recently seen a physician. 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 - Social history:: Smoking status: Patient reports the use of cigarette tobacco products, smokes one pack cigarettes per day. ROS: 23:52 Constitutional: Negative for fever, chills, and weight loss. kb 23:52 Skin: Positive for erythema, of the just below left knee, wound. 23:52 All other systems are negative. Exam: 23:52 ECG was reviewed by the Attending Physician. kb 23:52 Constitutional: This is a well developed, well nourished patient who is awake, alert, kb and in no acute distress. Head/Face: Normocephalic, atraumatic. ENT: Moist Mucous membranes Cardiovascular: Regular rate and rhythm with a normal S1 and S2. No gallops, murmurs, or rubs. No pulse deficits. Respiratory: Respirations even and unlabored. No increased work of breathing. Talking in full sentences Neuro: Awake and alert, GCS 15, oriented to person, place, time, and situation. Moves all extremities. 23:52 Musculoskeletal/extremity: Exam is negative for acute changes, bilateral BKA. 23:52 Skin: superficial wound with mild surrounding erythema and drainage. Vital Signs: 22:24 BP 103 / 52; Pulse 77; Resp 18; Temp 98.3(TE); Pulse Ox 100% on R/A; Pain 9/10; kl 23:44 Weight 86.18 kg (R); lg3 12/11 00:37 BP 114 / 68; Pulse 71; Resp 17 S; Pulse Ox 100% on R/A; lg3 12/10 22:24 Pain Scale: Adult kl MDM: 12/10 22:24 Patient medically screened. kb 12/11 00:15 Differential diagnosis: abscess, allergic reaction, cellulitis, insect bite, kb osteomyelitis. Data reviewed: vital signs, nurses notes. 00:15 Management of patient was discussed with the following: A P Manager: Dr Brown. kb 00:45 Consideration of Admission/Observation Patient was admitted/placed on observation. kb Escalation of care including admission/observation considered. Management of patient was discussed with the following: Hospitalist: Jo SPORTS COMMENTATOR accepts pt for admission. Historians other than the Patient: Family Member: family. Counseling: I had a detailed discussion with the patient and/or guardian regarding the historical points, exam findings, and any diagnostic results supporting the discharge/admit diagnosis, lab results, radiology results, the need for further work-up and treatment in the hospital. 12/10 22:46 Order name: Blood Culture Adult (2) kb 12/10 22:46 Order name: CBC with Diff; Complete Time: 00:08 kb 12/10 22:46 Order name: CMP; Complete Time: 00:11 kb 12/10 22:46 Order name: Lactate w/ 2H reflex if indic.; Complete Time: 00:42 kb 12/10 22:46 Order name: Protime (+inr); Complete Time: 23:57 kb 12/10 22:46 Order name: Ptt, Activated; Complete Time: 23:57 kb 12/10 22:53 Order name: Wound Culture 12/11 00:02 Order name: Glucose, Ancillary Testing; Complete Time: 00:08 EDMS 12/10 22:46 Order name: Tib Fib Left XRAY 12/10 22:46 Order name: EKG; Complete Time: 22:46 kb 12/11 01:01 Order name: CONS Physician Consult EDMS 12/10 22:46 Order name: Accucheck; Complete Time: 23:51 kb 12/10 22:46 Order name: Cardiac monitoring; Complete Time: 00:38 kb 12/10 22:46 Order name: EKG - Nurse/Tech; Complete Time: 23:51 kb 12/10 22:46 Order name: IV Saline Lock - Large Bore; Complete Time: 00:38 kb 12/10 22:46 Order name: Labs collected and sent; Complete Time: 00:38 kb 12/10 22:46 Order name: O2 Per Protocol; Complete Time: 00:38 kb 12/10 22:46 Order name: O2 Sat Monitoring; Complete Time: 00:38 kb 12/10 22:46 Order name: Vital Signs; Complete Time: 00:38 kb EC/22 23:52 Rate is 69 beats/min. Rhythm is regular. QRS [place] is Normal. MO interval is normal at kb 172 msec. QRS interval is normal at 134 msec. QT interval is normal at 450 msec. Administered Medications: 00:40 Drug: NS 0.9% IV 1000 ml Route: IV; Rate: 1000 ml; Site: right upper arm; 3 12/11 01:45 Follow up: IV Status: Completed infusion; IV Intake: 1000ml 3 12/10 23:57 Drug: Hydrocodone-Acetaminophen PO (7.5 mg-325 mg) 1 tabs Route: PO; 3 12/11 00:43 Follow up: Response: No adverse reaction; Pain is decreased lg3 00:40 Drug: vancoMYCIN IVPB 1 grams Route: IVPB; Infused Over: 2 hrs; Site: right upper arm; lg3 01:45 Follow up: IV Status: Infusion continued upon admission lg3 Disposition Summary: 12/11/22 00:50 Hospitalization Ordered Hospitalization Status: Inpatient Admission kb Provider: Brennan Elaine Location: Telemetry/[facility] (Inpatient) kb Condition: Stable kb Problem: new kb Symptoms: are unchanged kb Bed/Room Type: Standard kb Room Assignment: 223(12/11/22 01:14) cg Diagnosis - Cellulitis of left lower limb kb - Osteomyelitis, unspecified kb Forms: - Medication Reconciliation Form kb - SBAR form kb - Leadership Thank You Letter kb Signatures: Dispatcher [employer] EDSonia May, ELISA-C ASBESTOS HANDLER-Veda Rosa RN RN kl Garcia, Cindy, RN RN cg Gibson, Lacie, RN RN lg3 Corrections: (The following items were deleted from the chart) 01:14 00:50 kb cg
[2022-12-11] MEDS ORDERED: VANCOMYCIN 1 GM/VIAL ONE (00:52)
[2022-12-11] MEDS ORDERED: NA CHLORIDE 0.9% 1,000 ML ONE (00:52)
[2022-12-11] MEDS ORDERED: NA CHLORIDE 0.9% 250 ML ONE (00:52)
--- NOTE | 2022-12-11 00:53 | P.HP ---
Certification for Inpatient Patient admitted to: Inpatient With expected LOS: <2 Midnights Patient will require the following post-hospital care: None Practitioner: I am a practitioner with admitting privileges, knowledge of patient current condition, hospital course, and medical plan of care. Services: Services provided to patient in accordance with Admission requirements found in Title 42 Section 412.3 of the Code of Federal Regulations Patient History Date of Service: 12/11/22 Reason for admission: LLE Cellulitis History of Present Illness: 57-year-old male with a past medical history of A-fib on chronic coagulation, bilateral lower extremity amputations, [id number] diabetes, hypertension, seizure disorder presents to the emergency department with chief complaint of LLE wound. He is B)BKA, reports LLE anterior draining wound below knee that started 3 days ago is getting worse. He reports seen Dr. Keivn fink in the wound care clinic previously. He reports active seizures 2 or 3 a day. Blind. He he denies fever, chills, nausea vomiting diarrhea, chest pain abdominal pain. Plan to admit for osteomyelitis left lower extremity, left lower extremity cellulitis, laboratory evaluation CBC normocytic anemia hemoglobin 9.7, 29.4 early left shift 74.7, CMP mild hyponatremia sodium 135, acute on chronic kidney injury BUN 25, creatinine 1.81, estimated GFR 44, elevated blood glucose 199, elevated lactic at 2.9. Tib-fib x-ray minimal soft tissue swelling at the stump, findings may be suggestive of developing osteomyelitis, atherosclerosis of vascular is present, no fracture or dislocation Allergies shellfish derived Allergy (Verified 09/27/22 19:33) Itching/Hives/Rash Home Medications: Amiodarone HCl [Cordarone*] 200 mg PO DAILY 08/15/22 Apixaban [Eliquis] 5 mg PO BID 08/15/22 Atorvastatin Calcium 40 mg PO BEDTIME 08/15/22 Gabapentin 400 mg PO TID 08/15/22 Metoprolol Tartrate 25 mg PO BID 08/15/22 Sertraline [Zoloft*] 100 mg PO DAILY 08/15/22 Hydrocodone 10/APAP 325 [[place] 10/325*] 1 tab PO Q6H PRN #15 tab 09/21/22 Metformin HCl [Glucophage*] 500 mg PO BIDWM #60 tab 09/21/22 Amlodipine [Norvasc*] 5 mg PO DAILY #30 tab 09/28/22 Levetiracetam [Keppra] 750 mg PO BID #60 tab 09/28/22 - Past Medical/Surgical History Diabetic: Yes -: Afib -: HTN -: DM -: CAD/ Hx [place] -: CKD II (Dr. Mendez/ Rodrigo) -: bilateral BKA Psychosocial/ Personal History: Patient lives at home with his aunt - Family History Mother -: Heart disease, Diabetes, Cancer Father -: Heart disease - Social History Alcohol use: No CD- Drugs: No Caffeine use: Yes Review of Systems 10-point ROS is otherwise unremarkable Physical Examination - Physical Exam General: Alert, In no apparent distress, Oriented x3, Other (Blind) HEENT: Atraumatic, Normocephalic, PERRLA Neck: Supple, 2+ carotid pulse no bruit, JVD not distended Respiratory: Clear to auscultation bilaterally, Normal air movement, Diminished Cardiovascular: Normal pulses, Regular rate/rhythm, Edema (LLE +1, BLE BKA) Gastrointestinal: Normal bowel sounds, Soft and benign, Non-distended Musculoskeletal: No clubbing, No swelling Integumentary: Other (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) Neurological: Normal speech, Normal strength at 5/5 x4 extr, Sensation intact - Studies Laboratory Data (last 24 hrs) 12/10/22 12/10/22 12/10/22 23:23 23:23 23:23 WBC 6.40 Hgb 9.7 L Hct 29.4 L Plt Count 298 PT 15.1 H INR 1.37 APTT 32.5 Sodium 135 L Potassium 4.4 BUN 25 H Creatinine 1.81 H Glucose 199 H Total Bilirubin 0.3 AST 16 ALT 20 Alkaline Phosphatase 72 Assessment and Plan - Plan Assessment plan Osteomyelitis left lower extremity-acute Elevated lactic-acute Acute on chronic kidney injury unknown baseline-acute Hyponatremia-acute on chronic Atrial fibrillation on Eliquis-controlled Bilateral lower extremity amputations wheelchair dependent-chronic Diabetes type 2 uncontrolled Seizure disorder uncontrolled CAD Hypertension Legally blind DVT continue home Eliquis when cleared by surgery Assessment plan Osteomyelitis left lower extremity Elevated lactic IV vancomycin, cefepime, infectious disease consult, as needed analgesics Wound cultures, blood cultures, trend lactic Surgery consult sees Dr. 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 Rhythm is regular. QRS [place] is Normal. [place] interval is normal at kb 172 msec. QRS interval is normal at 134 msec. QT interval is normal at 450 msec Bilateral lower extremity amputations wheelchair dependent Physical therapy eval for transfers, OT for assistance with ADLs Fall precautions legally blind Diabetes mellitus blood sugar uncontrolled Accu-Cheks with sliding scale insulin, A1c in a.m. elevated blood glucose 199, Seizure disorder and uncontrolled Neurology consult resume home Keppra CAD Hypertension Resume home antihypertensives Full code Diet n.p.o. after midnight DVT resume Eliquis after cleared by surgery Discharge Plan: Home Plan to discharge in: 48 Hours - Advance Directives Does patient have a Living Will: No Does patient have a Durable POA for Healthcare: No - Code Status/Comfort Care Code Status: Full Code Physician Review: Patient Assessed, Agree with Above Assessment and Plan Critical Care: No Time Spent Managing Pts Care (In Minutes): 50
[2022-12-11] MEDS ORDERED: ZOLPIDEM TARTRATE 5 MG TABLET PO PRN (01:16)
[2022-12-11] MEDS ORDERED: ONDANSETRON 4 MG/2 ML VIAL IV PRN (01:16)
[2022-12-11] MEDS ORDERED: CEFEPIME 1 GM in NA CHLORIDE 0.9% 100 ML IV SCH (01:34)
[2022-12-11] MEDS ORDERED: HYDROCODONE/APAP 7.5/325 MG TAB PO PRN (01:34)
[2022-12-11] MEDS ORDERED: CEFEPIME 1 GM in NA CHLORIDE 0.9% 100 ML IV ONE (02:00)
[2022-12-11] MEDS ORDERED: D5W 1,000 ML IV SCH (02:00)
[2022-12-11 02:48] VITALS: BMI 57.9
[2022-12-11] MEDS ORDERED: VANCOMYCIN 1 GM in NA CHLORIDE 0.9% 250 ML IVPB ONE (05:00)
[2022-12-11] MEDS: INSULIN -REGULAR HUMAN 50 UNIT/0.5 ML ML SQ SCH ×5 (07:30→20:52)
--- NOTE | 2022-12-11 09:03 | P.CNS ---
Date of Consult: 12/11/22 Reason for Consult: JENNYFER Requesting Physician: Jorge L Dominguez Chief Complaint: LLE Cellulitis History of Present Illness: 57-year-old male with a past medical history of A-fib on chronic coagulation, bilateral lower extremity amputations, [id number] diabetes, hypertension, seizure disorder presents to the emergency department with chief complaint of LLE wound. He is B)BKA, reports LLE anterior draining wound below knee that started 3 days ago is getting worse. He reports seen Dr. Kevin fink in the wound care clinic previously. He reports active seizures 2 or 3 a day. Blind. He he denies fever, chills, nausea vomiting diarrhea, chest pain abdominal pain. Plan to admit for osteomyelitis left lower extremity, left lower extremity cellulitis, laboratory evaluation CBC normocytic anemia hemoglobin 9.7, 29.4 early left shift 74.7, CMP mild hyponatremia sodium 135, acute on chronic kidney injury BUN 25, creatinine 1.81, estimated GFR 44, elevated blood glucose 199, elevated lactic at 2.9. Tib-fib x-ray minimal soft tissue swelling at the stump, findings may be suggestive of developing osteomyelitis, atherosclerosis of vascular is present, no fracture or dislocation. [id number] 23:54 This 57 yrs old Male presents to ER via Wheelchair with complaints of Wound Infection. kb 23:54 wound just below left knee. Description: erythematous, wound. Onset: The kb symptoms/episode began/occurred 1 week(s) ago. Possible cause(s): unknown. Associated signs and symptoms: Pertinent positives: erythema, wound. Modifying factors: the symptoms are alleviated by nothing, the symptoms are aggravated by nothing. Severity of symptoms: At their worst the symptoms were mild, in the emergency department the symptoms are unchanged. The patient has not experienced Allergies shellfish derived Allergy (Verified 09/27/22 19:33) Itching/Hives/Rash Home medications list reviewed: Yes Home Medications: Amiodarone HCl [Cordarone*] 200 mg PO DAILY 08/15/22 Apixaban [Eliquis] 5 mg PO BID 08/15/22 Atorvastatin Calcium 40 mg PO BEDTIME 08/15/22 Gabapentin 400 mg PO TID 08/15/22 Metoprolol Tartrate 25 mg PO BID 08/15/22 Sertraline [Zoloft*] 100 mg PO DAILY 08/15/22 Hydrocodone 10/APAP 325 [[place] 10/325*] 1 tab PO Q6H PRN #15 tab 09/21/22 Metformin HCl [Glucophage*] 500 mg PO BIDWM #60 tab 09/21/22 Amlodipine [Norvasc*] 5 mg PO DAILY #30 tab 09/28/22 Levetiracetam [Keppra] 750 mg PO BID #60 tab 09/28/22 - Past Medical/Surgical History Diabetic: Yes -: Afib -: HTN -: DM II -: CAD/ Hx [place] -: CKD II (Dr. Mendez/ Dr. Wallace) -: bilateral BKA Psychosocial/ Personal History: Patient lives at home with his aunt - Family History Mother Medical History: Heart disease, Diabetes, Cancer Father Medical History: Heart disease - Social History Smoking Status: Current every day smoker Alcohol use: No CD- Drugs: No Caffeine use: Yes Place of Residence: Home Review of Systems 10-point ROS is otherwise unremarkable General: Weakness Integumentary: Lesions Physical Examination Temp Pulse Resp BP Pulse Ox 97.4 F 65 18 141/70 H 96 12/11/22 08:00 12/11/22 08:00 12/11/22 08:00 12/11/22 08:00 12/11/22 08:00 General: In no apparent distress, Oriented x3, Cooperative HEENT: Atraumatic Neck: Supple Respiratory: Normal air movement Cardiovascular: No edema, Regular rate/rhythm Gastrointestinal: Soft and benign, Non-distended Musculoskeletal: No clubbing, No contractures Integumentary: No rashes, No cyanosis, Skin lesion Neurological: Normal speech Laboratory Data (last 24 hrs) 12/10/22 12/10/22 12/10/22 23:23 23:23 23:23 WBC 6.40 Hgb 9.7 L Hct 29.4 L Plt Count 298 PT 15.1 H INR 1.37 APTT 32.5 Sodium 135 L Potassium 4.4 BUN 25 H Creatinine 1.81 H Glucose 199 H Total Bilirubin 0.3 AST 16 ALT 20 Alkaline Phosphatase 72 Imagings Data: [id number] EXAM DESCRIPTION: RAD - Tib Fib Left - 12/10/2022 11:41 pm CLINICAL HISTORY: The patient is 57 years old and is Male; r/o osteo TECHNIQUE: Frontal and lateral views of the left tibia and fibula. COMPARISON: No relevant prior studies available. FINDINGS: BONES/JOINTS: Mild irregularity involving the residual tibia and fibula is noted with sclerosis and lucency, specifically along the residual fibular stump. No acute fracture. No dislocation. SOFT TISSUES: Soft tissue swelling of the stomach is noted. No radiopaque foreign body. VASCULATURE: Atherosclerosis of the vasculature is present. IMPRESSION: Minimal soft tissue swelling of the stump with suggested minimal irregularity of the residual fibular stump. Findings may be secondary to developing osteomyelitis. Comparison with prior imaging would be useful. Conclusions/Impression: Stage I JENNYFER in the setting of hypotension CKD II -No NSAIDs -Start gentle IVF with NS Hyponatremia -DC D5W -Start gentle IVF with NS HTN with CKD -Hold antihypertensives DM II with CKD -RISS -Hold metformin Hypoalbuminemia -Consider protein supplementation Anemia in chronic illness -Monitor H&H Left BKA stump cellulitis Osteomyelitis? -Continue abx Case reviewed with Dr. Angelica JENSEN and Hospitalist note reviewed Thank you kindly for the consultation
--- NOTE | 2022-12-11 09:26 | P.CNS ---
Date of Consult: 12/11/22 Reason for Consult: osteomyelitis/LLE cellulitis Chief Complaint: LLE Cellulitis History of Present Illness: Patient is a 57 yo male with a past medical history of atrial fibrillation, diabetes mellitus, hypertension, seizure disorder, bilateral BKA who presented to the ED with complaints of left lower extremity wound which has been worsening over the past 3 days. XR of left tib/fib suggestive of developing osteomyelitis. Patient was started on empiric antibiotics and ID was consulted. Allergies shellfish derived Allergy (Verified 09/27/22 19:33) Itching/Hives/Rash Home medications list reviewed: Yes Home Medications: Amiodarone HCl [Cordarone*] 200 mg PO DAILY 08/15/22 Apixaban [Eliquis] 5 mg PO BID 08/15/22 Atorvastatin Calcium 40 mg PO BEDTIME 08/15/22 Gabapentin 400 mg PO TID 08/15/22 Metoprolol Tartrate 25 mg PO BID 08/15/22 Sertraline [Zoloft*] 100 mg PO DAILY 08/15/22 Hydrocodone 10/APAP 325 [Bryant 10/325*] 1 tab PO Q6H PRN #15 tab 09/21/22 Metformin HCl [Glucophage*] 500 mg PO BIDWM #60 tab 09/21/22 Amlodipine [Norvasc*] 5 mg PO DAILY #30 tab 09/28/22 Levetiracetam [Keppra] 750 mg PO BID #60 tab 09/28/22 - Past Medical/Surgical History Diabetic: Yes -: Afib -: HTN -: DM -: CAD/ Hx LA -: CKD II (Dr. Mendez/ Dr. Wallace) -: bilateral BKA Psychosocial/ Personal History: Patient lives at home with his aunt - Family History Mother Medical History: Heart disease, Diabetes, Cancer Father Medical History: Heart disease - Social History Smoking Status: Current every day smoker Alcohol use: No CD- Drugs: No Caffeine use: Yes Place of Residence: Home Review of Systems 10-point ROS is otherwise unremarkable Integumentary: As per HPI Physical Examination Temp Pulse Resp BP Pulse Ox 97.4 F 65 18 141/70 H 96 12/11/22 08:00 12/11/22 08:00 12/11/22 08:00 12/11/22 08:00 12/11/22 08:00 General: Alert, In no apparent distress, Oriented x3 HEENT: Atraumatic, Normocephalic Neck: Supple, JVD not distended Respiratory: Normal air movement, Diminished Cardiovascular: No edema, No rubs Gastrointestinal: Normal bowel sounds, No tenderness Musculoskeletal: Other (bilateral BKA) Integumentary: Skin lesion (LLE stump with abrasion) Neurological: Normal speech, Normal tone, Normal affect Laboratory Data (last 24 hrs) 12/10/22 12/10/22 12/10/22 23:23 23:23 23:23 WBC 6.40 Hgb 9.7 L Hct 29.4 L Plt Count 298 PT 15.1 H INR 1.37 APTT 32.5 Sodium 135 L Potassium 4.4 BUN 25 H Creatinine 1.81 H Glucose 199 H Total Bilirubin 0.3 AST 16 ALT 20 Alkaline Phosphatase 72 Microbiology Data - Reviewed Imagings Data: - Reviewed Conclusions/Impression: Problem List Atrial fibrillation Bilateral BKA Diabetes Mellitus Hypertension CAD Seizure disorder CKD II LLE cellulitis, Osteomyelitis - XR Left Tibia and Fibula 12/10: "Minimal soft tissue swelling of the stump with suggested minimal irregularity of the residual fibular stump. Findings may be secondary to developing osteomyelitis. Comparison with prior imaging would be useful." - Blood cultures 12/10: Pending - Wound culture 12/10: Pending - No leukocytosis. Afebrile. - On Cefepime and Vancomycin (started 12/11) - general surgery consulted Recommendations - Continue Cefepime and Vancomycin for now - Obtain MRI of left lower extremity - follow up with culture results - Seizure precautions Case discussed with Bryan Putnam
[2022-12-11 10:27] VITALS: O2SAT 96
[2022-12-11] MEDS: NA CHLORIDE 0.9% 1,000 ML IV SCH (11:02)
--- NOTE | 2022-12-11 11:32 | RAD REPORT ---
EXAM DESCRIPTION: RAD - Tib Fib Left - 12/10/2022 11:41 pm CLINICAL HISTORY: The patient is 57 years old and is Male; r/o osteo TECHNIQUE: Frontal and lateral views of the left tibia and fibula. COMPARISON: No relevant prior studies available. FINDINGS: BONES/JOINTS: Mild irregularity involving the residual tibia and fibula is noted with sc lerosis and lucency, specifically along the residual fibular stump. No acute fracture. No disloca tion. SOFT TISSUES: Soft tissue swelling of the stomach is noted. No radiopaque foreign body. VASCULATURE: Atherosclerosis of the vasculature is present. IMPRESSION: Minimal soft tissue swelling of the stump with suggested minimal irregularity of the res idual fibular stump. Findings may be secondary to developing osteomyelitis. Comparison with prior pavel ging would be useful. Electronically signed by: Corazon Keys MD 12/11/2022 12:11 AM CDT Due to temporary technical issues with the PACS/Fluency reporting system, reports are being signed by the in house radiologists without review as a courtesy to insure prompt reporting. The interpreting radiologist is fully responsible for the content of the report.
[2022-12-11] MEDS ORDERED: VANCOMYCIN 1 GM in NA CHLORIDE 0.9% 250 ML IVPB SCH (12:00)
--- NOTE | 2022-12-11 12:57 | EKG ---
Test Date: 2022-12-10 Test Time: 23:46:52 See Supervisor: ISMAEL MEASUREMENT RESULTS: Intervals: Rate: 69 NH: 172 QRSD: 134 QT: 420 QTc: 450 [place]: P: 69 NH: 172 QRS: 265 T: 45 INTERPRETIVE STATEMENTS: Normal sinus rhythm Right bundle branch block Possible Lateral infarct, age undetermined Inferior infarct, age undetermined Abnormal ECG Compared to ECG 12/05/2022 01:31:40 Myocardial infarct finding now present Electronically Signed On 12-11-22 12:55:39 CDT by Natanael Watson
--- NOTE | 2022-12-11 21:00 | RAD REPORT ---
EXAM DESCRIPTION: MRI - Tib Fib Left Wo Cont - 12/11/2022 7:54 pm CLINICAL HISTORY: osteomyelitis Pain and swelling. COMPARISON: Tib Fib Left Wo Cont dated 09/18/2022; Tib Fib Left dated 12/10/2022 FINDINGS: Below the knee amputation noted. Significant edema is present involving the stump. Soft ti ssue ulceration is seen along the lateral aspect of the lateral stump. No evidence of osteomyelitis s een. No localized fluid collection to suggest abscess. IMPRESSION: Negative for osteomyelitis.
[2022-12-12] MEDS: NA CHLORIDE 0.9% 1,000 ML IV SCH ×2 (00:29→17:58)
[2022-12-12] MEDS: CEFEPIME 1 GM in NA CHLORIDE 0.9% 100 ML IV SCH (00:29)
[2022-12-12] MEDS ORDERED: METOPROLOL TARTRATE 5 MG/5 ML INJ IV PRN (00:43)
[2022-12-12 03:42] LABS: Hematocrit 28.7 % (39.6-49.0); Lymphocytes % 19.5 % (15.3-44.8); MCV 85.9 fL (80-100); MPV 8.1 fL (7.6-11.3); Magnesium 1.7 mg/dL (1.6-2.4); Platelets 302 thou/uL (152-406); Potassium 4.9 mEq/L (3.5-5.1); RBC Red Blood Cell Count 3.34 M/uL (4.33-5.43)
[2022-12-12] MEDS ORDERED: MAGNESIUM SULFATE 1 gm IVPB 1 GM/100 ML BAG IV ONE (04:00)
[2022-12-12] MEDS: INSULIN -REGULAR HUMAN 50 UNIT/0.5 ML ML SQ SCH ×4 (07:30→20:40)
--- NOTE | 2022-12-12 08:43 | P.PN ---
Date of Service: 12/12/22 Chief Complaint: LLE Cellulitis Subjective: Patient seen and examined at bedside. Denies any new or worsening complaints. No acute events reported overnight. Physical Examination Temp Pulse Resp BP Pulse Ox 97.2 F 56 17 155/75 H 93 12/12/22 04:00 12/12/22 04:00 12/12/22 04:00 12/12/22 04:00 12/12/22 04:00 General: Alert, In no apparent distress, Oriented x3 HEENT: Atraumatic, Normocephalic Neck: Supple, JVD not distended Respiratory: Normal air movement, Diminished Cardiovascular: No edema, No rubs Gastrointestinal: Normal bowel sounds, No tenderness Musculoskeletal: Other (bilateral BKA) Integumentary: Skin lesion (LLE stump with abrasions) Neurological: Normal speech, Normal tone, Normal affect Laboratory Data - Reviewed Microbiology Data - Reviewed Imagings Data: - Reviewed Medications List: Reviewed Assessment and Plan Problem List Atrial fibrillation Bilateral BKA Diabetes Mellitus Hypertension CAD Seizure disorder CKD II LLE cellulitis, Osteomyelitis - XR Left Tibia and Fibula 12/10: "Minimal soft tissue swelling of the stump with suggested minimal irregularity of the residual fibular stump. Findings may be secondary to developing osteomyelitis. Comparison with prior imaging would be useful." - MRI left tib/fib 12/11: " No evidence of osteomyelitis seen. No localized fluid collection to suggest abscess. " - Blood cultures 12/10: No growth to date - Wound culture 12/10: 4+ gram negative rods and 4+ gram positive cocci - No leukocytosis. Afebrile. - On Cefepime and Vancomycin (started 12/11) Recommendations MRI of LLE without evidence of osteomyelitis or abscess. Wound culture with gram-negative rods and gram-positive cocci. - Continue Cefepime and Vancomycin for now - Will follow up with final wound culture results and adjust antibiotic as needed - Seizure precautions - Apply silvadene to left lower stump wounds and cover with foam dressing. Case discussed with Brayn Putnam
--- NOTE | 2022-12-12 11:00 | P.PN ---
Date of Service: 12/12/22 Vital Signs Temp Pulse Resp BP Pulse Ox 97.0 F 69 16 140/66 92 12/12/22 08:00 12/12/22 08:00 12/12/22 08:00 12/12/22 08:00 12/12/22 08:00 Medications Hydrocodone Bitart/Acetaminophen (Hydrocodone/Apap 7.5/325 Mg Tab) 1 tab PO Q6H PRN PRN Reason: Pain scale 5-7 (Moderate) Vancomycin HCl 1.5 gm/ Sodium (Chloride) 500 mls @ 250 mls/hr IVPB Q36H HINA Cefepime HCl 1 gm/ Sodium (Chloride) 100 mls @ 200 mls/hr IV Q24H [facility]; Protocol Last Admin: 12/12/22 00:29 Dose: 100 mls Sodium Chloride (Ns 1000 Ml Ivbag) 1,000 mls @ 75 mls/hr IV .[id number] [facility] Last Admin: 12/12/22 00:29 Dose: 1,000 mls Insulin Human Regular (Insulin -Regular Human 50 Unit/0.5 Ml Ml) 0 unit SQ ACHS [facility]; Protocol Last Admin: 12/12/22 07:30 Dose: Not Given Metoprolol Tartrate (Metoprolol Tartrate 5 Mg/5 Ml Inj) 5 mg IV Q6H PRN PRN Reason: Titrate to SBP (MUST DEFINE) Last Admin: 12/12/22 01:02 Dose: 5 mg Ondansetron HCl (Ondansetron 4 Mg/2 Ml Vial) 4 mg IV Q6HP PRN PRN Reason: NAUSEA / VOMITING Sodium Chloride (Flush Normal Saline 10 Ml) 10 ml IV BID [facility] Last Admin: 12/11/22 20:52 Dose: 10 ml Zolpidem Tartrate (Zolpidem Tartrate 5 Mg Tablet) 5 mg PO BEDTIME PRN PRN PRN Reason: INSOMNIA Microbiology Results 12/11/22 00:30 Blood - Blood Aerobic Blood Culture - Preliminary No growth in 24 hours. 12/11/22 00:30 Blood - Blood Anaerobic Blood Culture - Preliminary No growth in 24 hours. 12/10/22 23:23 Blood - Blood Aerobic Blood Culture - Preliminary No growth in 24 hours. 12/10/22 23:23 Blood - Blood Anaerobic Blood Culture - Final Assessment/ Plan: Nephrology No dyspnea No chest pain No acute events overnight Good urine output Vitals, medications, blood work and imaging reviewed in the chart General: In no apparent distress, Oriented x3, Cooperative HEENT: Atraumatic Neck: Supple Respiratory: Normal air movement Cardiovascular: No edema, Regular rate/rhythm Gastrointestinal: Soft and benign, Non-distended Musculoskeletal: No clubbing, No contractures Integumentary: No rashes, No cyanosis, Skin lesion Neurological: Normal speech Laboratory Data (last 24 hrs) 12/10/22 12/10/22 12/10/22 23:23 23:23 23:23 WBC 6.40 Hgb 9.7 L Hct 29.4 L Plt Count 298 PT 15.1 H INR 1.37 APTT 32.5 Sodium 135 L Potassium 4.4 BUN 25 H Creatinine 1.81 H Glucose 199 H Total Bilirubin 0.3 AST 16 ALT 20 Alkaline Phosphatase 72 Imagings Data: [id number] EXAM DESCRIPTION: RAD - Tib Fib Left - 12/10/2022 11:41 pm CLINICAL HISTORY: The patient is 57 years old and is Male; r/o osteo TECHNIQUE: Frontal and lateral views of the left tibia and fibula. COMPARISON: No relevant prior studies available. FINDINGS: BONES/JOINTS: Mild irregularity involving the residual tibia and fibula is noted with sclerosis and lucency, specifically along the residual fibular stump. No acute fracture. No dislocation. SOFT TISSUES: Soft tissue swelling of the stomach is noted. No radiopaque foreign body. VASCULATURE: Atherosclerosis of the vasculature is present. IMPRESSION: Minimal soft tissue swelling of the stump with suggested minimal irregularity of the residual fibular stump. Findings may be secondary to developing osteomyelitis. Comparison with prior imaging would be useful. Conclusions/Impression: Stage I JENNYFER in the setting of hypotension CKD II -No NSAIDs -Hold IVF Hyponatremia, resolved HTN with CKD -Start Amlodipine 5mg daily DM II with CKD -RISS -Hold metformin Hypoalbuminemia -Consider protein supplementation Anemia in chronic illness -Monitor H&H Left BKA stump cellulitis -Continue abx Hospitalist & ID note reviewed
[2022-12-12] MEDS ORDERED: VANCOMYCIN 1.5 GM in NA CHLORIDE 0.9% 500 ML IVPB SCH (14:00)
[2022-12-12] MEDS: AMLODIPINE 2.5 MG TAB PO SCH (14:06)
--- NOTE | 2022-12-12 19:13 | CON ---
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 Ultimately, I lindsay ated him nonoperatively over an extended period of time with combination of antibiotics with local wo und care; however, he did have osteomyelitis, not responsive to treatment. As such, he was taken to the operating room for revision and debridement of his BKA stump, which was performed. He healed suc cessfully. He states that since being seen in my office where he was completely healed out, he had f marce several times and believes that he may have injured his BKA stump and as such he came to the em ergency room with redness, tenderness, swelling, and pain at this area. Past Medical History: Significant for atrial fibrillation, diabetes, hypertension, seizure disorder, peripheral vascular disease. Past Surgical History: Bilateral BKAs as well as revision to the BKA on the left. Allergies: SHELLFISH. Home Medications: Including amiodarone, Eliquis, atorvastatin, gabapentin, insulin, metoprolol, Zolo ft, lisinopril, Santyl, Depakote, Bactroban, and Bactrim. Review of Systems: Ten-point review of systems other than HPI, denies. Physical Examination: General: At the time of my examination; he is awake, alert, oriented. Psychiatric: He is appropriate, conversive. HEENT: He is normocephalic. Sclerae are anicteric. Mucous membranes are moist. Oropharynx is segundo r. Neck: Supple without JVD. Chest: Expansion and excursion. Cardiovascular: Regular rate and rhythm. Pulmonary: Clear to auscultation bilaterally. Abdomen: Soft. Extremities: Focused examination of the left lower extremity shows some mild swelling and redness to the BKA site. There were abrasions, which are new from previous exam on the infrapatellar aspect of the residual tibia near the plateau. There was also minimal amount of swelling and redness along th e previous wound site, which appears to have been abraded and clear as well at this point. There is no drainage at this point. There are no signs of deep infection by my examination, however. I would recommend continued workup based on what I was saying. Laboratory Data: Revealed a white blood cell count of 5.3, hemoglobin is 9.7, hematocrit 28.7, plate let count was 302. PT is 15.1, INR 1.37, PTT is 32.5. His chemistry showed a sodium of 135, potassi um 4.4, chloride was 105, carbon dioxide 26, BUN 25, creatinine 1.8, glucose is 199. His lactic acid was 2.9 originally and then subsequently 1.5. His calcium 8.5. He had imaging performed, which inc luded a tibia-fibula MRI, officially read on 12/11 as negative for osteomyelitis, [id number] ampu tation noted, significant edema present involving the stump, soft tissue ulceration seen along the la teral aspect of lateral stump. No evidence osteomyelitis. No localized fluid collections to suggest abscess. Assessment And Plan: This is a 57-year-old male, who comes in with an injury to his left BKA stump. 1.IV fluid hydration. 2.Antibiotic coverage. 3.Local wound care with Silvadene cream topically to be applied to the area. 4.Rapid elevate and continue local wound care of the area. 5.I will follow patient as an outpatient whenever he is deemed appropriate for discharge. He does n ot need to be in the hospital from a surgical standpoint with respect to his wound care as he can con tinue this is an outpatient. I explained the risks, benefits, alternatives of the above stated plan. The patient agrees to proceed as indicated. Thank you for this interesting consult. ROJAS/JEREMY Voice ID: [id number] Report ID: [id number]
[2022-12-13] MEDS: CEFEPIME 1 GM in NA CHLORIDE 0.9% 100 ML IV SCH (00:04)
[2022-12-13] MEDS: NA CHLORIDE 0.9% 1,000 ML IV SCH (02:00)
[2022-12-13 03:56] LABS: Absolute Lymphocytes (CBC) 0.8 K/uL (0.7-4.9); Hematocrit 29.8 % (39.6-49.0); Lymphocytes % 18.9 % (15.3-44.8); MCV 85.6 fL (80-100); MPV 8.1 fL (7.6-11.3); Platelets 311 thou/uL (152-406); RBC Red Blood Cell Count 3.48 M/uL (4.33-5.43)
[2022-12-13 04:08] LABS: Magnesium 1.7 mg/dL (1.6-2.4); Potassium 4.5 mEq/L (3.5-5.1)
[2022-12-13] MEDS ORDERED: MAGNESIUM SULFATE 1 gm IVPB 1 GM/100 ML BAG IV ONE (05:00)
[2022-12-13] MEDS: INSULIN -REGULAR HUMAN 50 UNIT/0.5 ML ML SQ SCH ×2 (07:30→11:30)
[2022-12-13] MEDS: AMLODIPINE 2.5 MG TAB PO SCH (08:20)
[2022-12-13] MEDS ORDERED: SILVER SULFADIAZINE 1% 25 GM TOP SCH (09:00)
--- NOTE | 2022-12-13 09:18 | P.PN ---
Date of Service: 12/13/22 Chief Complaint: LLE Cellulitis Subjective: Patient seen and examined at bedside. Resting comfortably in bed. Denies any new complaints. States he is ready to go home. No acute events reported overnight. Plan for discharge home on oral antibiotics and topical wound care. Physical Examination Temp Pulse Resp BP Pulse Ox 97.0 F 64 16 161/59 H 90 L 12/13/22 08:00 12/13/22 08:00 12/13/22 08:00 12/13/22 08:00 12/13/22 08:00 General: Alert, In no apparent distress, Oriented x3 HEENT: Atraumatic, Normocephalic Neck: Supple, JVD not distended Respiratory: Normal air movement, Diminished Cardiovascular: No edema, No rubs Gastrointestinal: Normal bowel sounds, No tenderness Musculoskeletal: Other (bilateral BKA) Integumentary: Skin lesion (LLE stump with abrasions) Neurological: Normal speech, Normal tone, Normal affect Laboratory Data - Reviewed Microbiology Data - Reviewed Imagings Data: - Reviewed Medications List: Reviewed Assessment and Plan Problem List Atrial fibrillation Bilateral BKA Diabetes Mellitus Hypertension CAD Seizure disorder CKD II LLE cellulitis, Osteomyelitis - XR Left Tibia and Fibula 12/10: "Minimal soft tissue swelling of the stump with suggested minimal irregularity of the residual fibular stump. Findings may be secondary to developing osteomyelitis. Comparison with prior imaging would be useful." - MRI left tib/fib 12/11: " No evidence of osteomyelitis seen. No localized fluid collection to suggest abscess. " - Blood cultures 12/10: No growth to date - Wound culture 12/10: Staphylococcus aureus and Enterobacter cloacae - No leukocytosis. Afebrile. - On Cefepime and Vancomycin (started 12/11) Recommendations Cellulitis of LLE; MRI without evidence of osteomyelitis or abscess; Wound culture with Staph aureus and enterobacter - Continue antibiotic therapy x 7 days (12/11-12/18) - Consider switch to Bactrim PO - Apply silvadene to left lower stump wounds and cover with foam dressing. Current plan for discharge home with oral antibiotics and topical wound care. follow up with PCP/wound care as outpatient. Case discussed with Bryan Putnam
--- NOTE | 2022-12-13 11:02 | P.PN ---
Nephrology note (S) Pt seen working with PT, no acute complaints (O) Vitals, medications, blood work and imaging reviewed in the chart General: In no apparent distress, cooperative HEENT: Atraumatic Neck: Supple Respiratory: Normal air movement, non tachypnec Cardiovascular: Regular rate/rhythm Gastrointestinal: Softm Non-distended Musculoskeletal: Hx of amutation Integumentary: See wound care note for description Neurological: Normal speech, awake, alert Laboratory Data (last 24 hrs) Reviewed in the EMR Imagings Data: [id number] EXAM DESCRIPTION: RAD - Tib Fib Left - 12/10/2022 11:41 pm CLINICAL HISTORY: The patient is 57 years old and is Male; r/o osteo TECHNIQUE: Frontal and lateral views of the left tibia and fibula. COMPARISON: No relevant prior studies available. FINDINGS: BONES/JOINTS: Mild irregularity involving the residual tibia and fibula is noted with sclerosis and lucency, specifically along the residual fibular stump. No acute fracture. No dislocation. SOFT TISSUES: Soft tissue swelling of the stomach is noted. No radiopaque foreign body. VASCULATURE: Atherosclerosis of the vasculature is present. IMPRESSION: Minimal soft tissue swelling of the stump with suggested minimal irregularity of the residual fibular stump. Findings may be secondary to developing osteomyelitis. Comparison with prior imaging would be useful. Conclusions/Impression: Stage I JENNYFER in the setting of relative hypotension/other -Cr level has normalized, d/c IVF Chronic underlying HTN -BP has trended upwards, monitor for now, cont CCB but monitor for peripheral edema issues Left BKA stump cellulitis +/- osteo -Abx per primary team, cont to monitor renal function closely on IV Abx Vanc + Cefepime perio Kevon Wallace MD, POONAM
[2022-12-13 12:06] VITALS: BP 142/67; TEMP 97.2
[2022-12-13] MEDS ORDERED: VANCOMYCIN 1.5 GM in NA CHLORIDE 0.9% 500 ML IVPB SCH (14:00)
== END 2022-12-13 13:03 | disposition home or self-care (01) | DRG 565 ==
LOC: ER 22:15 → ERHOLD 12-11 00:57 → 2ND 12-11 01:31
PROVIDERS: ADMIT Hospitalist; ATTEND Hospitalist
DX: T87.44 Infection of amputation stump, left lower extremity (principal); E87.1 Hypo-osmolality and hyponatremia; L03.116 Cellulitis of left lower limb; N17.9 Acute kidney failure, unspecified; I12.9 Hypertensive chronic kidney disease with stage 1 through stage 4 chronic kidney disease, or unspecified chronic kidney disease; N18.2 Chronic kidney disease, stage 2 (mild); E11.22 Type 2 diabetes mellitus with diabetic chronic kidney disease; E11.51 Type 2 diabetes mellitus with diabetic peripheral angiopathy without gangrene; D63.1 Anemia in chronic kidney disease; D63.8 Anemia in other chronic diseases classified elsewhere; I48.91 Unspecified atrial fibrillation; H54.8 Legal blindness, as defined in USA; E88.09 Other disorders of plasma-protein metabolism, not elsewhere classified; G40.909 Epilepsy, unspecified, not intractable, without status epilepticus; I25.10 Atherosclerotic heart disease of native coronary artery without angina pectoris; I25.2 Old myocardial infarction; F17.210 Nicotine dependence, cigarettes, uncomplicated; B96.89 Other specified bacterial agents as the cause of diseases classified elsewhere; B95.61 Methicillin susceptible Staphylococcus aureus infection as the cause of diseases classified elsewhere; Z99.3 Dependence on wheelchair; Z79.84 Long term (current) use of oral hypoglycemic drugs; Z79.01 Long term (current) use of anticoagulants; Z89.512 Acquired absence of left leg below knee; Z89.511 Acquired absence of right leg below knee; Z79.899 Other long term (current) drug therapy; Z91.013 Allergy to seafood
CPT/HCPCS: 36415; 80048; 80053; 80202; 82947; 83605; 83735; 85025; 85610; 85730; 87040; 87070; 87077; 87186; 87205; 93005; 96361; 96365; 97110; 97161; 97165; 97530; 99285; J0692; J3475; J7030; J7040; J7050

== ENCOUNTER 2023-01-25 14:40 | Emergency (ER) | payer OTHER ==
--- OUTSIDE RECORDS SUMMARY | 2023-01-25 15:03 | XMS REPORT | Continuity of Care Document ---
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 mg capsule morning. [facility] h gabapentin 2022-0 Yes [id number] 400mg Take 1 [facility] 400 mg 8-18 capsule by ity of capsule 00:00: mouth in [place] 00 the morning Branch and 1 capsule at noon and 1 capsule in the evening. lisinopriL 2022-0 Yes [id number] 2.5mg Take 1 [facility] 2.5 mg 8-18 tablet by ity of tablet 00:00: mouth in [place] 00 the Medical morning. Branch metFORMIN 2022-0 Yes [id number] 500mg Take 1 [facility] 500 mg 8-18 tablet by ity of tablet 00:00: mouth in [place] [address] the Medical morning Branch and 1 tablet in the evening. Take with meals. metoprolol 2022-0 Yes [id number] 25mg Take 1 U nivers tartrate 25 8-18 tablet by ity of mg tablet 00:00: mouth in [facility] 00 the Medical morning Branch and 1 tablet in the evening. SERTraline 2022-0 Yes [id number] 25mg Take 1 [facility] 25 mg 8-18 tablet by ity of tablet 00:00: mouth in [place] 00 the Medical morning. Branch amiodarone 2022-0 Yes [id number] 200mg Take 1 [facility] 200 mg 8-18 tablet by ity of tablet 00:00: mouth in [place] 00 the Medical morning. Branch apixaban 5 0 Yes 5mg Take 1 Unive rs mg tablet 8-18 tablet by ity o f 00:00: mouth in [place] the Medical morning Branch and 1 tablet in the evening. Indication s: ATRIAL FIBRILLATI ON atorvastati 2022-0 Yes [id number] 40mg Take 1 [facility] n 40 mg 8-18 tablet by ity of tablet 00:00: mouth at [place] 00 bedtime. Medical Branch Bifidobacte 0 Yes [id number] 4mg Take 1 [facility] rium 8-18 capsule by ity of Infantis 00:00: mouth in [place] (ALIGN) 4 00 the Medical mg capsule morning. [facility] h gabapentin 0 Yes [id number] 400mg Take 1 [facility] 400 mg 8-18 capsule by ity of capsule 00:00: mouth in [place] the morning Branch and 1 capsule at noon and 1 capsule in the evening. lisinopriL Yes [id number] 2.5mg Take 1 [facility] 2.5 mg 8-18 tablet by ity of tablet 00:00: mouth in [place] the Medical morning. Branch metFORMIN Yes [id number] 500mg Take 1 [facility] 500 mg 8-18 tablet by ity of tablet 00:00: mouth in [place] the Medical morning Branch and 1 tablet in the evening. Take with meals. metoprolol 2022-0 Yes [id number] 25mg Take 1 U nivers tartrate 25 8-18 tablet by ity of mg tablet 00:00: mouth in [facility] 00 the Medical morning Branch and 1 tablet in the evening. SERTraline Yes [id number] 25mg Take 1 [facility] 25 mg 8-18 tablet by ity of tablet 00:00: mouth in [place] the morning. Branch amiodarone 0 Yes [id number] 200mg Take 1 [facility] 200 mg 8-18 tablet by ity of tablet 00:00: mouth in [place] 00 the Medical morning. Branch apixaban 5 0 Yes 5mg Take 1 Unive rs mg tablet 8-18 tablet by ity o f 00:00: mouth in [place] the Medical morning Branch and 1 tablet in the evening. Indication s: ATRIAL FIBRILLATI ON atorvastati Yes [id number] 40mg Take 1 [facility] n 40 mg 8-18 tablet by ity of tablet 00:00: mouth at [place] 00 bedtime. Medical Branch Bifidobacte 0 Yes [id number] 4mg Take 1 [facility] rium 8-18 capsule by ity of Inf[facility] 00:00: mouth in [place] (ALIGN) 4 00 the Medical mg capsule morning. Bran h gabapentin 0 Yes [id number] 400mg Take 1 [facility] 400 mg 8-18 capsule by ity of capsule 00:00: mouth in [place] 00 the Medical morning Branch and 1 capsule at noon and 1 capsule in the evening. lisinopriL Yes [id number] 2.5mg Take 1 [facility] 2.5 mg 8-18 tablet by ity of tablet 00:00: mouth in [place] 00 the Medical morning. Branch metFORMIN 0 Yes [id number] 500mg Take 1 [facility] 500 mg 8-18 tablet by ity of tablet 00:00: mouth in [place] 00 the Medical morning Branch and 1 tablet in the evening. Take with meals. metoprolol 0 Yes [id number] 25mg Take 1 U nivers tartrate 25 8-18 tablet by ity of mg tablet 00:00: mouth in [facility] 00 the Medical morning Branch and 1 tablet in the evening. SERTraline Yes [id number] 25mg Take 1 [facility] 25 mg 8-18 tablet by ity of tablet 00:00: mouth in [place] 00 the Medical morning. Branch amiodarone Yes [id number] 200mg Take 1 [facility] 200 mg 8-18 tablet by ity of tablet 00:00: mouth in [place] 00 the Medical morning. Branch insulin 2022- No [id number] 14U inject 14 [facility] glargine 8-18 08-28 Units ity of (SEMGLEE 00:00: 00:00 under the [place] U-100 00 :00 skin in Medical INSULIN) the [place] 100 unit/mL morning. injection insulin 2022- No [id number] 14U inject 14 [facility] glargine 8-18 08-28 Units ity of (SEMGLEE 00:00: 00:00 under the [place] U-100 00 :00 skin in Medical INSULIN) the [place] 100 unit/mL morning. injection [place],INS 2022- No 14U inject 14 Univers ULIN 7-19 07-19 Units ity of GLARGINE-YF 14:32: 00:00 under the [facility] [place] 43 :00 skin in [facility] morning. As directed SEMGLEE,INS 2022- No 14U inject 14 Univers ULIN 7-19 07-19 Units ity of GLARGINE-YF 14:32: 00:00 under the [place], [place] 43 :00 skin in [facility] morning. As directed SEMGLEE,INS 2022- No 14U inject 14 [facility] ULIN 7-19 07-19 Units ity of GLARGINE-YF 14:32: 00:00 under the [place], [place] 43 :00 skin in [facility] morning. As directed [place]GLEE,INS 2022- No 14U inject 14 [facility] ULIN 7-19 07-19 Units ity of GLARGINE-YF 14:32: 00:00 under the [place], [place] 43 :00 skin in [facility] morning. As directed divalproex Yes [id number] 500mg Take 1 [facility] ER 500 mg 7-19 tablet by ity o f 24 hr 00:00: mouth [place] tablet 00 every 24 Medical (twenty- [place] ur) hours. insulin Yes [id number] 14U inject 14 [facility] glargine 7-19 Units ity of (SEMGLE[place] 00:00: [place] U[place] skin in Medical INSULIN) [facility] 100 unit/mL morning. injection amiodarone Yes [id number] 200mg Take 1 [facility] 200 mg 7-19 tablet by ity of tablet 00:00: mouth in [place] 00 the Medical morning. Branch apixaban 5 Yes 5mg Take 1 Unive rs mg tablet 7-19 tablet by ity o f 00:00: mouth in [place] [address] the Medical morning Branch and 1 tablet in the evening. Indication s: ATRIAL FIBRILLATI ON metFORMIN Yes [id number] 500mg Take 1 [facility] 500 mg 7-19 tablet by ity of tablet 00:00: mouth in [place] 00 the Medical morning Branch and 1 tablet in the evening. Take with meals. divalproex 2022-0 Yes [id number] 500mg Take 1 [facility] ER 500 mg 7-19 tablet by ity o f 24 hr 00:00: mouth [place] tablet 00 every 24 Medical ([facility] ur) hours. insulin 2022-0 Yes [id number] 14U inject 14 [facility] glargine 7-19 Units ity of (SEMGLEE 00:00: [place] U-[place] skin in Medical INSULIN) the Branch 100 unit/mL morning. injection amiodarone 2022-0 Yes [id number] 200mg Take 1 [facility] 200 mg 7-19 tablet by ity of tablet 00:00: mouth in [place] 00 the Medical morning. Branch apixaban 5 2022-0 Yes 5mg Take 1 Unive rs mg tablet 7-19 tablet by ity o f 00:00: mouth in [place] the Medical morning Branch and 1 tablet in the evening. Indication s: ATRIAL FIBRILLATI ON metFORMIN 2022-0 Yes [id number] 500mg Take 1 [facility] 500 mg 7-19 tablet by ity of tablet 00:00: mouth in [place] the Medical morning Branch and 1 tablet in the evening. Take with meals. divalproex 2022-0 Yes [id number] 500mg Take 1 [facility] ER 500 mg 7-19 tablet by ity o f 24 hr 00:00: mouth [place] tablet 00 every 24 Medical ([facility] ur) hours. insulin 2022-0 Yes [id number] 14U inject 14 [facility] glargine 7-19 Units ity of (SEMGLEE 00:00: [place] U-[place] skin in Medical INSULIN) the Branch 100 unit/mL morning. injection amiodarone 2022-0 Yes [id number] 200mg Take 1 [facility] 200 mg 7-19 tablet by ity of tablet 00:00: mouth in [place] 00 the Medical morning. Branch apixaban 5 2022-0 Yes 5mg Take 1 Unive rs mg tablet 7-19 tablet by ity o f 00:00: mouth in [place] the Medical morning Branch and 1 tablet in the evening. Indication s: ATRIAL FIBRILLATI ON metFORMIN 2022-0 Yes [id number] 500mg Take 1 [facility] 500 mg 7-19 tablet by ity of tablet 00:00: mouth in [place] 00 the Medical morning Branch and 1 tablet in the evening. Take with meals. divalproex 2023-0 Yes [id number] 500mg Take 1 [facility] ER 500 mg 7-19 tablet by ity o f 24 hr 00:00: mouth [place] tablet 00 every 24 Medical (twenty-fo Branch ur) hours. divalproex 2023-0 Yes [id number] 500mg Take 1 [facility] ER 500 mg 7-19 tablet by ity o f 24 hr 00:00: mouth [place] tablet 00 every 24 Medical (twenty-fo Branch ur) hours. divalproex 2023-0 Yes [id number] 500mg Take 1 [facility] ER 500 mg 7-19 tablet by ity o f 24 hr 00:00: mouth [place] tablet 00 every 24 Medical (twenty-fo Branch ur) hours. divalproex 2023-0 Yes [id number] 500mg Take 1 [facility] ER 500 mg 7-19 tablet by ity o f 24 hr 00:00: mouth [place] tablet 00 every 24 Medical (twenty-fo Branch ur) hours. divalproex 2023-0 Yes [id number] 500mg Take 1 [facility] ER 500 mg 7-19 tablet by ity o f 24 hr 00:00: mouth [place] tablet 00 every 24 Medical (twenty-fo Branch ur) hours. divalproex 2023-0 Yes [id number] 500mg Take 1 [facility] ER 500 mg 7-19 tablet by ity o f 24 hr 00:00: mouth [place] tablet 00 every 24 Medical (twenty-fo Branch ur) hours. divalproex 2023-0 Yes [id number] 500mg Take 1 [facility] ER 500 mg 7-19 tablet by ity o f 24 hr 00:00: mouth [place] tablet 00 every 24 Medical (twenty-fo Branch ur) hours. divalproex 2023-0 Yes [id number] 500mg Take 1 [facility] ER 500 mg 7-19 tablet by ity o f 24 hr 00:00: mouth [place] tablet 00 every 24 Medical (twenty-fo Branch ur) hours. divalproex 2023-0 Yes [id number] 500mg Take 1 [facility] ER 500 mg 7-19 tablet by ity o f 24 hr 00:00: mouth [place] tablet 00 every 24 Medical (twenty-fo Branch ur) hours. divalproex 2023-0 Yes [id number] 500mg Take 1 [facility] ER 500 mg 7-19 tablet by ity o f 24 hr 00:00: mouth [place] tablet 00 every 24 Medical (twenty-fo Branch ur) hours. insulin 2022-2022- No [id number] 14U inject 14 [facility] glargine 7-19 08-18 Units ity of (SEMGLEE 00:00: 00:00 under the [place] U-100 00 :00 skin in Medical INSULIN) the Branch 100 unit/mL morning. injection amiodarone 2022-2022- No [id number] 200mg Take 1 [facility] 200 mg 7-19 08-18 tablet by ity of tablet 00:00: 00:00 mouth in [place] 00 :00 the Medical morning. Branch apixaban 5 2022-2022- No 5mg Take 1 Univ ers mg tablet 7-07 12-18 tablet by ity of 00:00: 00:00 mouth in [place] 00 :00 the Medical morning Branch and 1 tablet in the evening. Indication s: ATRIAL FIBRILLATI ON metFORMIN 2022-2022- No [id number] 500mg Take 1 [facility] 500 mg 7-19 08-18 tablet by ity of tablet 00:00: 00:00 mouth in [place] 00 :00 the Medical morning Branch and 1 tablet in the evening. Take with meals. insulin 2022-2022- No [id number] 14U inject 14 [facility] glargine 7-19 08-18 Units ity of (SEMGLEE 00:00: 00:00 under the [place] U-100 00 :00 skin in Medical INSULIN) the Branch 100 unit/mL morning. injection amiodarone 2022-2022- No [id number] 200mg Take 1 [facility] 200 mg 7- [...] evening. Indication s: ATRIAL FIBRILLATI ON metFORMIN 2022-2022- No [id number] 500mg Take 1 [facility] 500 mg 7-19 08-18 tablet by ity of tablet 00:00: 00:00 mouth in [place] 00 :00 the Medical morning Branch and 1 tablet in the evening. Take with meals. DIVALPROEX 2023-0 Yes [id number] TAKE 1 [facility] ER 500 mg 6-30 TABLET BY ity o f 24 hr 00:00: MOUTH [place] tablet 00 EVERY 24 Medical HOURS Branch DIVALPROEX 2023-0 2023- No [id number] TAKE 1 [facility] ER 500 mg 6-30 07-19 TABLET BY ity of 24 hr 00:00: 00:00 MOUTH [place] tablet 00 :00 EVERY 24 Medical HOURS Branch DIVALPROEX 2023-0 2023- No [id number] TAKE 1 [facility] ER 500 mg 6-30 07-19 TABLET BY ity of 24 hr 00:00: 00:00 MOUTH [place] tablet 00 :00 EVERY 24 Medical HOURS Branch DIVALPROEX 2023-0 2023- No [id number] TAKE 1 [facility] ER 500 mg 6-30 07-19 TABLET BY ity of 24 hr 00:00: 00:00 MOUTH [place] tablet 00 :00 EVERY 24 Medical HOURS Branch DIVALPROEX 2023-0 3- No [id number] TAKE 1 [facility] ER 500 mg 6-30 07-19 TABLET BY ity of 24 hr 00:00: 00:00 MOUTH [place] tablet 00 :00 EVERY 24 Medical HOURS Branch blood sugar 2023-0 Yes [id number] Check U nivers diagnostic 6-07 blood ity of strip 00:00: sugar 2 [place] 00 times a Medical day. Branch E11.9. Brand per insurance. Uses ACCU-CHEK machine blood sugar 2023-0 Yes [id number] Check U nivers diagnostic 6-07 blood ity of strip 00:00: sugar 2 [place] 00 times a Medical day. Branch E11.9. Brand per insurance. Uses ACCU-CHEK machine blood sugar 2023-0 Yes [id number] Check U nivers diagnostic 6-07 blood ity of strip 00:00: sugar 2 [place] 00 times a Medical day. Branch E11.9. Brand per insurance. Uses ACCU-CHEK machine blood sugar 2023-0 Yes [id number] Check U nivers diagnostic 6-07 blood ity of strip 00:00: sugar 2 [place] 00 times a Medical day. Branch E11.9. Brand per insurance. Uses ACCU-CHEK machine blood sugar 2023-0 Yes [id number] Check U nivers diagnostic 6-07 blood ity of strip 00:00: sugar 2 [place] 00 times a Medical day. Branch E11.9. Brand per insurance. Uses ACCU-CHEK machine blood sugar 2023-0 Yes [id number] Check U nivers diagnostic 6-07 blood ity of strip 00:00: sugar 2 [place] 00 times a Medical day. Branch E11.9. Brand per insurance. Uses ACCU-CHEK machine blood sugar 2023-0 Yes [id number] Check U nivers diagnostic 6-07 blood ity of strip 00:00: sugar 2 [place] 00 times a Medical day. Branch E11.9. Brand per insurance. Uses ACCU-CHEK machine blood sugar 2023-0 Yes [id number] Check U nivers diagnostic 6-07 blood ity of strip 00:00: sugar 2 [place] 00 times a Medical day. Branch E11.9. Brand per insurance. Uses ACCU-CHEK machine blood sugar 2023-0 Yes [id number] Check U nivers diagnostic 6-07 blood ity of strip 00:00: sugar 2 [place] 00 times a Medical day. Branch E11.9. Brand per insurance. Uses ACCU-CHEK machine blood sugar 2023-0 Yes [id number] Check U nivers diagnostic 6-07 blood ity of strip 00:00: sugar 2 [place] 00 times a Medical day. Branch E11.9. Brand per insurance. Uses ACCU-CHEK machine blood sugar 2023-0 Yes [id number] Check U nivers diagnostic 6-07 blood ity of strip 00:00: sugar 2 [place] 00 times a Medical day. Branch E11.9. Brand per insurance. Uses ACCU-CHEK machine blood sugar 2023-0 Yes [id number] Check U nivers diagnostic 6-07 blood ity of strip 00:00: sugar 2 [place] 00 times a Medical day. Branch E11.9. Brand per insurance. Uses ACCU-CHEK machine blood sugar 2023-0 Yes [id number] Check U nivers diagnostic 6-07 blood ity of strip 00:00: sugar 2 [place] 00 times a Medical day. Branch E11.9. Brand per insurance. Uses ACCU-CHEK machine blood sugar 2023-0 Yes [id number] Check U nivers diagnostic 6-07 blood ity of strip 00:00: sugar 2 [place] 00 times a Medical day. Branch E11.9. Brand per insurance. Uses ACCU-CHEK machine blood sugar 2023-0 Yes [id number] Check U nivers diagnostic 6-07 blood ity of strip 00:00: sugar 2 [place] 00 times a Medical day. Branch E11.9. Brand per insurance. Uses ACCU-CHEK machine blood sugar 2023-0 Yes [id number] Check U nivers diagnostic 6-07 blood ity of strip 00:00: sugar 2 [place] 00 times a Medical day. Branch E11.9. Brand per insurance. Uses ACCU-CHEK machine blood sugar 2023-0 Yes [id number] Check U nivers diagnostic 6-07 blood ity of strip 00:00: sugar 2 [place] 00 times a Medical day. Branch E11.9. Brand per insurance. Uses ACCU-CHEK machine blood sugar 2023-0 Yes [id number] Check U nivers diagnostic 6-07 blood ity of strip 00:00: sugar 2 [place] 00 times a Medical day. Branch E11.9. Brand per insurance. Uses ACCU-CHEK machine blood sugar 2023-0 Yes [id number] Check U nivers diagnostic 6-07 blood ity of strip 00:00: sugar 2 [place] 00 times a Medical day. Branch E11.9. Brand per insurance. Uses ACCU-CHEK machine metFORMIN 2023-0 2023- No 500mg Take 1 Univ ers 500 mg 6-06 25-19 tablet by ity of tablet 00:00: 00:00 mouth in [place] 00 :00 the Medical morning Branch and 1 tablet in the evening. Take with meals. metFORMIN 2023-0 2023- No 500mg Take 1 Univ ers 500 mg 6-06 25-19 tablet by ity of tablet 00:00: 00:00 mouth in [place] 00 :00 the Medical morning Branch and 1 tablet in the evening. Take with meals. divalproex 2023-0 2023- No 500mg Take 1 Uni vers ER 500 mg 5-25 05-25 tablet by ity of 24 hr 14:14: 00:00 mouth [place] tablet 51 :00 every 24 Medical (twenty-fo Branch ur) hours. divalproex 2023-0 2023- No 500mg Take 1 Uni vers ER 500 mg 5-25 05-25 tablet by ity of 24 hr 14:14: 00:00 mouth [place] tablet 51 :00 every 24 Medical (twenty-fo Branch ur) hours. SERTraline 2023-0 2023- No 25mg Take 1 Univ ers 25 mg 5-25 05-25 tablet by ity of tablet 14:13: 00:00 mouth in [place] 30 :00 the Medical morning. [place] SERTraline 2022- No 25mg Take 1 Univ ers 25 mg 5-25 05-25 tablet by ity of tablet 14:13: 00:00 mouth in [place] 30 :00 the Medical morning. Branch SEMGLEE,INS 0 Yes 14U inject 14 U nivers ULIN 5-25 Units ity of GLARGINE-YF 14:08: [facility] [place] [facility] skin in [facility] the [place] morning. As directed SEMGLEE,INS Yes 14U inject 14 U nivers ULIN 5-25 Units ity of GLARGINE-YF 14:08: [facility] [place] [facility] skin in [facility] the [place] morning. As directed SEMGLEE,INS Yes 14U inject 14 U nivers ULIN 5-25 Units ity of GLARGINE-YF 14:08: [facility] [place] [facility] skin in [facility] morning. As directed SEMGLEE,INS 0 Yes 14U inject 14 U nivers ULIN 5-25 Units ity of GLARGINE-YF 14:08: [facility] [place] [facility] skin in [facility] morning. As directed SEMGLEE,INS 0 Yes 14U inject 14 U nivers ULIN 5-25 Units ity of GLARGINE-YF 14:08: under the [facility] [place] 13 skin in [facility] the [place] morning. As directed SEMGLEE,INS 0 Yes 14U inject 14 U nivers ULIN 5-25 Units ity of GLARGINE-YF 14:08: [facility] [place] [facility] skin in [facility] morning. As directed SEMGLEE,INS 2022-0 Yes 14U inject 14 U nivers ULIN 5-25 Units ity of GLARGINE-YF 14:08: under the [place] 13 skin in [facility] morning. As directed SEMGLEE,INS 2022-0 Yes 14U inject 14 U nivers ULIN 5-25 Units ity of GLARGINE-YF 14:08: under the [place] 13 skin in Medical the Branch morning. As directed SEMGLEE,INS 2023-0 Yes 14U inject 14 U nivers ULIN 5-25 Units ity of GLARGINE-YF 14:08: under the [place] skin in [facility] the Branch morning. As directed SEMGLEE,INS 2022-0 Yes 14U inject 14 U nivers ULIN 5-25 Units ity of GLARGINE-YF 14:08: under the [place] 13 skin in [facility] the Branch morning. As directed SEMGLEE,INS 3-0 Yes 14U inject 14 U nivers ULIN 5-25 Units ity of GLARGINE-YF 14:08: under the [place] 13 skin in [facility] the Branch morning. As directed SEMGLEE,INS 2022-0 Yes 14U inject 14 U nivers ULIN 5-25 Units ity of GLARGINE-YF 14:08: under the [place] 13 skin in [facility] the Branch morning. As directed SEMGLEE,INS 2022-0 Yes 14U inject 14 U nivers ULIN 5-25 Units ity of GLARGINE-YF 14:08: under the [place] 13 skin in [facility] the Branch morning. As directed SEMGLEE,INS 2022-0 Yes 14U inject 14 U nivers ULIN 5-25 Units ity of GLARGINE-YF 14:08: under the [place] 13 skin in [facility] the [place] morning. As directed SEMGLEE,INS 2022-0 Yes 14U inject 14 U nivers ULIN 5-25 Units ity of GLARGINE-YF 14:08: under the [place] 13 skin in [facility] the [place] morning. As directed SEMGLEE,INS 3-0 Yes 14U inject 14 U nivers ULIN 5-25 Units ity of GLARGINE-YF 14:08: under the [place] 13 skin in [facility] the [place] morning. As directed SEMGLEE,INS 3-0 Yes 14U inject 14 U nivers ULIN 5-25 Units ity of GLARGINE-YF 14:08: under the [place] 13 skin in [facility] the [place] morning. As directed SEMGLEE,INS 2023-0 Yes 14U inject 14 U nivers ULIN 5-25 Units ity of GLARGINE-YF 14:08: under the [place] 13 skin in [facility] the [place] morning. As directed SEMGLEE,INS 2022-0 Yes 14U inject 14 U nivers ULIN 5-25 Units ity of GLARGINE-YF 14:08: under the [place] 13 skin in [facility] the [place] morning. As directed SERTraline 2022-0 Yes [id number] 25mg Take 1 [facility] 25 mg 5-25 tablet by ity of tablet 00:00: mouth in [place] 00 the Medical morning. Branch SERTraline 2022-0 Yes [id number] 100mg Take 1 [facility] 100 mg 5-25 tablet by ity of tablet 00:00: mouth in [place] 00 the Medical morning. Branch divalproex 2022-0 Yes [id number] 500mg Take 1 [facility] ER 500 mg 5-25 tablet by ity o f 24 hr 00:00: mouth [place] tablet 00 every 24 Medical ( [place] ur) hours. Bifidobacte 3-0 Yes [id number] 4mg Take 1 [facility] rium 5-25 capsule by ity of Infantis 00:00: mouth in [place] (ALIGN) 4 00 the Medical mg capsule morning. Branc h SERTraline 2022-0 Yes [id number] 25mg Take 1 [facility] 25 mg 5-25 tablet by ity of tablet 00:00: mouth in [place] 00 the Medical morning. Branch SERTraline 2022-0 Yes [id number] 100mg Take 1 [facility] 100 mg 5-25 tablet by ity of tablet 00:00: mouth in [place] 00 the Medical morning. Branch divalproex 3-0 Yes [id number] 500mg Take 1 [facility] ER 500 mg 5-25 tablet by ity o f 24 hr 00:00: mouth [place] tablet 00 every 24 Medical ( [place] ur) hours. Bifidobacte 2023-0 Yes [id number] 4mg Take 1 [facility] rium 5-25 capsule by ity of Inf[facility] 00:00: mouth in [place] (ALIGN) 4 00 the Medical mg capsule morning. Branc h SERTraline 3-0 Yes [id number] 25mg Take 1 [facility] 25 mg 5-25 tablet by ity of tablet 00:00: mouth in [place] 00 the Medical morning. Branch SERTraline 2023-0 Yes [id number] 100mg Take 1 [facility] 100 mg 5-25 tablet by ity of tablet 00:00: mouth in [place] 00 the Medical morning. Branch divalproex 2023-0 Yes [id number] 500mg Take 1 [facility] ER 500 mg 5-25 tablet by ity o f 24 hr 00:00: mouth [place] tablet 00 every 24 Medical (twenty-fo Branch ur) hours. Bifidobacte 2023-0 Yes [id number] 4mg Take 1 [facility] rium 5-25 capsule by ity of Infantis 00:00: mouth in [place] (ALIGN) 4 00 the Medical mg capsule morning. Branc h SERTraline 2023-0 Yes [id number] 25mg Take 1 [facility] 25 mg 5-25 tablet by ity of tablet 00:00: mouth in [place] 00 the Medical morning. Branch SERTraline 2023-0 Yes [id number] 100mg Take 1 [facility] 100 mg 5-25 tablet by ity of tablet 00:00: mouth in [place] 00 the Medical morning. Branch divalproex 2023-0 Yes [id number] 500mg Take 1 [facility] ER 500 mg 5-25 tablet by ity o f 24 hr 00:00: mouth [place] tablet 00 every 24 Medical (twenty-fo Branch ur) hours. Bifidobacte 2023-0 Yes [id number] 4mg Take 1 [facility] rium 5-25 capsule by ity of [facility] 00:00: mouth in [place] (ALIGN) 4 00 the Medical mg capsule morning. Bran h SERTraline 2023-0 Yes [id number] 25mg Take 1 [facility] 25 mg 5-25 tablet by ity of tablet 00:00: mouth in [place] 00 the Medical morning. Branch SERTraline 2023-0 Yes [id number] 100mg Take 1 [facility] 100 mg 5-25 tablet by ity of tablet 00:00: mouth in [place] 00 the Medical morning. Branch divalproex 2023-0 Yes [id number] 500mg Take 1 [facility] ER 500 mg 5-25 tablet by ity o f 24 hr 00:00: mouth [place] tablet 00 every 24 Medical (twenty-fo Branch ur) hours. Bifidobacte 2023-0 Yes [id number] 4mg Take 1 [facility] rium 5-25 capsule by ity of [facility] 00:00: mouth in [place] (ALIGN) 4 00 the Medical mg capsule morning. Branc h SERTraline 2023-0 Yes [id number] 25mg Take 1 [facility] 25 mg 5-25 tablet by ity of tablet 00:00: mouth in [place] 00 the Medical morning. Branch SERTraline 2023-0 Yes [id number] 100mg Take 1 [facility] 100 mg 5-25 tablet by ity of tablet 00:00: mouth in [place] 00 the Medical morning. Branch divalproex 2023-0 Yes [id number] 500mg Take 1 [facility] ER 500 mg 5-25 tablet by ity o f 24 hr 00:00: mouth [place] tablet 00 every 24 Medical (twenty- [place] ur) hours. Bifidobacte 2023-0 Yes [id number] 4mg Take 1 [facility] rium 5-25 capsule by ity of [facility] 00:00: mouth in [place] (ALIGN) 4 00 the Medical mg capsule morning. Branc h SERTraline 2023-0 Yes [id number] 25mg Take 1 [facility] 25 mg 5-25 tablet by ity of tablet 00:00: mouth in [place] 00 the Medical morning. Branch SERTraline 2023-0 Yes [id number] 100mg Take 1 [facility] 100 mg 5-25 tablet by ity of tablet 00:00: mouth in [place] 00 the Medical morning. Branch divalproex 2023-0 Yes [id number] 500mg Take 1 [facility] ER 500 mg 5-25 tablet by ity o f 24 hr 00:00: mouth [place] tablet 00 every 24 Medical (- [place] ur) hours. Bifidobacte 2023-0 Yes [id number] 4mg Take 1 [facility] rium 5-25 capsule by ity of [facility] 00:00: mouth in [place] (ALIGN) 4 00 the Medical mg capsule morning. Branc h SERTraline 2023-0 Yes [id number] 25mg Take 1 [facility] 25 mg 5-25 tablet by ity of tablet 00:00: mouth in [place] 00 the Medical morning. Branch SERTraline 2023-0 Yes [id number] 100mg Take 1 [facility] 100 mg 5-25 tablet by ity of tablet 00:00: mouth in [place] 00 the Medical morning. Branch divalproex 2023-0 Yes [id number] 500mg Take 1 [facility] ER 500 mg 5-25 tablet by ity o f 24 hr 00:00: mouth [place] tablet 00 every 24 Medical (twenty- [place] ur) hours. Bifidobacte 2023-0 Yes [id number] 4mg Take 1 [facility] rium 5-25 capsule by ity of [facility] 00:00: mouth in [place] (ALIGN) 4 00 the Medical mg capsule morning. Branc h SERTraline 2023-0 Yes [id number] 25mg Take 1 [facility] 25 mg 5-25 tablet by ity of tablet 00:00: mouth in [place] 00 the Medical morning. Branch SERTraline 2023-0 Yes [id number] 100mg Take 1 [facility] 100 mg 5-25 tablet by ity of tablet 00:00: mouth in [place] 00 the Medical morning. Branch divalproex 2023-0 Yes [id number] 500mg Take 1 [facility] ER 500 mg 5-25 tablet by ity o f 24 hr 00:00: mouth [place] tablet 00 every 24 Medical ( [place] ur) hours. Bifidobacte 2023-0 Yes [id number] 4mg Take 1 [facility] rium 5-25 capsule by ity of [facility] 00:00: mouth in [place] (ALIGN) 4 00 the Medical mg capsule morning. Branc h SERTraline 2023-0 Yes [id number] 25mg Take 1 [facility] 25 mg 5-25 tablet by ity of tablet 00:00: mouth in [place] 00 the Medical morning. Branch SERTraline 2023-0 Yes [id number] 100mg Take 1 [facility] 100 mg 5-25 tablet by ity of tablet 00:00: mouth in [place] 00 the Medical morning. Branch Bifidobacte 2023-0 Yes [id number] 4mg Take 1 [facility] rium 5-25 capsule by ity of [facility] 00:00: mouth in [place] (ALIGN) 4 00 the Medical mg capsule morning. Branc h SERTraline 2023-0 Yes [id number] 25mg Take 1 [facility] 25 mg 5-25 tablet by ity of tablet 00:00: mouth in [place] 00 the Medical morning. Branch SERTraline 2023-0 Yes [id number] 100mg Take 1 [facility] 100 mg 5-25 tablet by ity of tablet 00:00: mouth in [place] 00 the Medical morning. Branch Bifidobacte 2023-0 Yes [id number] 4mg Take 1 [facility] rium 5-25 capsule by ity of [facility] 00:00: mouth in [place] (ALIGN) 4 00 the Medical mg capsule morning. Branc h SERTraline 2023-0 Yes [id number] 25mg Take 1 [facility] 25 mg 5-25 tablet by ity of tablet 00:00: mouth in [place] 00 the Medical morning. Branch Bifidobacte 2023-0 Yes [id number] 4mg Take 1 [facility] rium 5-25 capsule by ity of [facility] 00:00: mouth in [place] (ALIGN) 4 00 the Medical mg capsule morning. Branc h SERTraline 2023-0 Yes [id number] 25mg Take 1 [facility] 25 mg 5-25 tablet by ity of tablet 00:00: mouth in [place] 00 the Medical morning. Branch Bifidobacte 2023-0 Yes [id number] 4mg Take 1 [facility] rium 5-25 capsule by ity of [facility] 00:00: mouth in [place] (ALIGN) 4 00 the Medical mg capsule morning. Branc h SERTraline 3-0 Yes [id number] 25mg Take 1 [facility] 25 mg 5-25 tablet by ity of tablet 00:00: mouth in [place] 00 the Medical morning. Branch Bifidobacte 2023-0 Yes [id number] 4mg Take 1 [facility] rium 5-25 capsule by ity of [facility] 00:00: mouth in [place] (ALIGN) 4 00 the Medical mg capsule morning. Branc h SERTraline 3-0 Yes [id number] 25mg Take 1 [facility] 25 mg 5-25 tablet by ity of tablet 00:00: mouth in [place] 00 the Medical morning. Branch Bifidobacte 3-0 Yes [id number] 4mg Take 1 [facility] rium 5-25 capsule by ity of [facility] 00:00: mouth in [place] (ALIGN) 4 00 the Medical mg capsule morning. Branc h SERTraline 2023-0 Yes [id number] 25mg Take 1 [facility] 25 mg 5-25 tablet by ity of tablet 00:00: mouth in [place] 00 the Medical morning. Branch Bifidobacte 2023-0 Yes [id number] 4mg Take 1 [facility] rium 5-25 capsule by ity of [facility] 00:00: mouth in [place] (ALIGN) 4 00 the Medical mg capsule morning. Branc h SERTraline 2023-0 Yes [id number] 25mg Take 1 [facility] 25 mg 5-25 tablet by ity of tablet 00:00: mouth in [place] 00 the Medical morning. Branch SERTraline 2023-0 Yes [id number] 100mg Take 1 [facility] 100 mg 5-25 tablet by ity of tablet 00:00: mouth in [place] 00 the Medical morning. Branch divalproex 2023-0 Yes [id number] 500mg Take 1 [facility] ER 500 mg 5-25 tablet by ity o f 24 hr 00:00: mouth [place] tablet 00 every 24 Medical ( Branch ur) hours. Bifidobacte 2023-0 Yes [id number] 4mg Take 1 [facility] rium 5-25 capsule by ity of [facility] 00:00: mouth in [place] (ALIGN) 4 00 the Medical mg capsule morning. Branc h SERTraline 2023-0 Yes [id number] 25mg Take 1 [facility] 25 mg 5-25 tablet by ity of tablet 00:00: mouth in [place] 00 the Medical morning. Branch SERTraline 2023-0 Yes [id number] 100mg Take 1 [facility] 100 mg 5-25 tablet by ity of tablet 00:00: mouth in [place] 00 the Medical morning. Branch divalproex 2023-0 Yes [id number] 500mg Take 1 [facility] ER 500 mg 5-25 tablet by ity o f 24 hr 00:00: mouth [place] tablet 00 every 24 Medical ( Branch ur) hours. Bifidobacte 2023-0 Yes [id number] 4mg Take 1 [facility] rium 5-25 capsule by ity of [facility] 00:00: mouth in [place] (ALIGN) 4 00 the Medical mg capsule morning. Branc h SERTraline 2023-0 Yes [id number] 25mg Take 1 [facility] 25 mg 5-25 tablet by ity of tablet 00:00: mouth in [place] 00 the Medical morning. Branch SERTraline 2023-0 Yes [id number] 100mg Take 1 [facility] 100 mg 5-25 tablet by ity of tablet 00:00: mouth in [place] 00 the Medical morning. Branch divalproex 2023-0 Yes [id number] 500mg Take 1 [facility] ER 500 mg 5-25 tablet by ity o f 24 hr 00:00: mouth [place] tablet 00 every 24 Medical (twenty- Branch ur) hours. Bifidobacte 2023-0 Yes [id number] 4mg Take 1 [facility] rium 5-25 capsule by ity of [facility] 00:00: mouth in [place] (ALIGN) 4 00 the Medical mg capsule morning. Branc h SERTraline 2023-0 Yes [id number] 25mg Take 1 [facility] 25 mg 5-25 tablet by ity of tablet 00:00: mouth in [place] 00 the Medical morning. Branch SERTraline 2023-0 Yes [id number] 100mg Take 1 [facility] 100 mg 5-25 tablet by ity of tablet 00:00: mouth in [place] 00 the Medical morning. Branch divalproex 2023-0 Yes [id number] 500mg Take 1 [facility] ER 500 mg 5-25 tablet by ity o f 24 hr 00:00: mouth [place] tablet 00 every 24 Medical ( [place] ur) hours. Bifidobacte 2023-0 Yes [id number] 4mg Take 1 [facility] rium 5-25 capsule by ity of [facility] 00:00: mouth in [place] (ALIGN) 4 00 the Medical mg capsule morning. Bran h SERTraline 3-0 Yes [id number] 25mg Take 1 [facility] 25 mg 5-25 tablet by ity of tablet 00:00: mouth in [place] 00 the Medical morning. Branch SERTraline 2023-0 Yes [id number] 100mg Take 1 [facility] 100 mg 5-25 tablet by ity of tablet 00:00: mouth in [place] 00 the Medical morning. Branch divalproex 2023-0 Yes [id number] 500mg Take 1 [facility] ER 500 mg 5-25 tablet by ity o f 24 hr 00:00: mouth [place] tablet 00 every 24 Medical ( [place] ur) hours. Bifidobacte 2023-0 Yes [id number] 4mg Take 1 [facility] rium 5-25 capsule by ity of [facility] 00:00: mouth in [place] (ALIGN) 4 00 the Medical mg capsule morning. Bran h SERTraline 2023-0 Yes [id number] 25mg Take 1 [facility] 25 mg 5-25 tablet by ity of tablet 00:00: mouth in [place] 00 the Medical morning. Branch SERTraline 2023-0 Yes [id number] 100mg Take 1 [facility] 100 mg 5-25 tablet by ity of tablet 00:00: mouth in [place] 00 the Medical morning. Branch divalproex 2023-0 Yes [id number] 500mg Take 1 [facility] ER 500 mg 5-25 tablet by ity o f 24 hr 00:00: mouth [place] tablet 00 every 24 Medical (twenty Branch ur) hours. Bifidobacte 2022-0 Yes [id number] 4mg Take 1 [facility] rium 5-25 capsule by ity of [facility] 00:00: mouth in [place] (ALIGN) 4 00 the Medical mg capsule morning. Branc h gabapentin 2022-0 2022- No [id number] 400mg Take 1 [facility] 400 mg 5-25 08-24 capsule by ity of capsule 00:00: 04:59 mouth in [place] 00 :00 [facility] and 1 capsule at noon and 1 capsule in the evening. Do all this for 90 days. gabapentin 2022-0 2022- No [id number] 400mg Take 1 [facility] 400 mg 5-25 08-24 capsule by ity of capsule 00:00: 04:59 mouth in [place] 00 :00 [facility] and 1 capsule at noon and 1 capsule in the evening. Do all this for 90 days. gabapentin 2022-0 2022- No [id number] 400mg Take 1 [facility] 400 mg 5-25 08-24 capsule by ity of capsule 00:00: 04:59 mouth in [place] 00 :00 [facility] and 1 capsule at noon and 1 capsule in the evening. Do all this for 90 days. gabapentin 2022-0 2022- No [id number] 400mg Take 1 [facility] 400 mg 5-25 08-24 capsule by ity of capsule 00:00: 04:59 mouth in [place] 00 :00 [facility] and 1 capsule at noon and 1 capsule in the evening. Do all this for 90 days. gabapentin 2022-0 2022- No [id number] 400mg Take 1 [facility] 400 mg 5-25 08-24 capsule by ity of capsule 00:00: 04:59 mouth in [place] 00 :00 [facility] and 1 capsule at noon and 1 capsule in the evening. Do all this for 90 days. gabapentin 2022-0 2022- No [id number] 400mg Take 1 [facility] 400 mg 5-25 08-24 capsule by ity of capsule 00:00: 04:59 mouth in [place] 00 :00 [facility] and 1 capsule at noon and 1 capsule in the evening. Do all this for 90 days. gabapentin 2022-0 2022- No [id number] 400mg Take 1 [facility] 400 mg 5-25 08-24 capsule by ity of capsule 00:00: 04:59 mouth in [place] 00 :00 the Medical morning Branch and 1 capsule at noon and 1 capsule in the evening. Do all this for 90 days. gabapentin 2023-0 2023- No [id number] 400mg Take 1 [facility] 400 mg 5-25 08-24 capsule by ity of capsule 00:00: 04:59 mouth in [place] 00 :00 the Medical morning Branch and 1 capsule at noon and 1 capsule in the evening. Do all this for 90 days. gabapentin 2023-0 2023- No [id number] 400mg Take 1 [facility] 400 mg 5-25 08-24 capsule by ity of capsule 00:00: 04:59 mouth in [place] 00 :00 the Medical morning Branch and 1 capsule at noon and 1 capsule in the evening. Do all this for 90 days. gabapentin 2023-0 2023- No [id number] 400mg Take 1 [facility] 400 mg 5-25 08-24 capsule by ity of capsule 00:00: 04:59 mouth in [place] 00 :00 the [facility] morning [place] and 1 capsule at noon and 1 capsule in the evening. Do all this for 90 days. gabapentin 2023-0 2023- No [id number] 400mg Take 1 [facility] 400 mg 5-25 08-24 capsule by ity of capsule 00:00: 04:59 mouth in [place] 00 :00 the [facility] morning Branch and 1 capsule at noon and 1 capsule in the evening. Do all this for 90 days. gabapentin 2023-0 2023- No [id number] 400mg Take 1 [facility] 400 mg 5-25 08-24 capsule by ity of capsule 00:00: 04:59 mouth in [place] 00 :00 the [facility] morning Branch and 1 capsule at noon and 1 capsule in the evening. Do all this for 90 days. gabapentin 2023-0 2023- No [id number] 400mg Take 1 [facility] 400 mg 5-25 08-24 capsule by ity of capsule 00:00: 04:59 mouth in [place] 00 :00 the Medical morning Branch and 1 capsule at noon and 1 capsule in the evening. Do all this for 90 days. gabapentin 2023-0 2023- No [id number] 400mg Take 1 [facility] 400 mg 5-25 08-24 capsule by ity of capsule 00:00: 04:59 mouth in [place] 00 :00 the [facility] morning Branch and 1 capsule at noon and 1 capsule in the evening. Do all this for 90 days. gabapentin 2023-0 2023- No [id number] 400mg Take 1 [facility] 400 mg 5-25 08-24 capsule by ity of capsule 00:00: 04:59 mouth in [place] 00 :00 the Medical morning Branch and 1 capsule at noon and 1 capsule in the evening. Do all this for 90 days. gabapentin 2023-0 2023- No [id number] 400mg Take 1 [facility] 400 mg 5-25 08-24 capsule by ity of capsule 00:00: 04:59 mouth in [place] 00 :00 the Medical morning Branch and 1 capsule at noon and 1 capsule in the evening. Do all this for 90 days. gabapentin 2023-0 2023- No [id number] 400mg Take 1 [facility] 400 mg 5-25 08-24 capsule by ity of capsule 00:00: 04:59 mouth in [place] 00 :00 the [facility] morning [place] and 1 capsule at noon and 1 capsule in the evening. Do all this for 90 days. gabapentin 2023-0 2023- No [id number] 400mg Take 1 [facility] 400 mg 5-25 08-24 capsule by ity of capsule 00:00: 04:59 mouth in [place] 00 :00 the [facility] morning Branch and 1 capsule at noon and 1 capsule in the evening. Do all this for 90 days. gabapentin 2023-0 2023- No [id number] 400mg Take 1 [facility] 400 mg 5-25 08-24 capsule by ity of capsule 00:00: 04:59 mouth in [place] 00 :00 the [facility] morning [place] and 1 capsule at noon and 1 capsule in the evening. Do all this for 90 days. gabapentin 2023-0 2023- No [id number] 400mg Take 1 [facility] 400 mg 5-25 08-24 capsule by ity of capsule 00:00: 04:59 mouth in [place] 00 :00 the Medical morning Branch and 1 capsule at noon and 1 capsule in the evening. Do all this for 90 days. gabapentin 2023-0 2023- No [id number] 400mg Take 1 [facility] 400 mg 5-25 08-24 capsule by ity of capsule 00:00: 04:59 mouth in [place] 00 :00 the Medical morning [place] and 1 capsule at noon and 1 capsule in the evening. Do all this for 90 days. gabapentin 2023-0 2023- No [id number] 400mg Take 1 [facility] 400 mg 5-25 08-24 capsule by ity of capsule 00:00: 04:59 mouth in [place] 00 :00 the Medical morning Branch and 1 capsule at noon and 1 capsule in the evening. Do all this for 90 days. gabapentin 2023-0 202- No [id number] 400mg Take 1 [facility] 400 mg 5-25 08-18 capsule by ity of capsule 00:00: 00:00 mouth in [place] 00 :00 the Medical morning Branch and 1 capsule at noon and 1 capsule in the evening. Do all this for 90 days. SERTraline 2022-0 2022- No [id number] 25mg Take 1 [facility] 25 mg 5-25 08-18 tablet by ity of tablet 00:00: 00:00 mouth in [place] 00 :00 the Medical morning. Branch Bifidobacte 2022-0 3- No [id number] 4mg Take 1 [facility] rium 5-25 08-18 capsule by ity of [facility] 00:00: 00:00 mouth in [facility] s (ALIGN) 4 00 :00 the Medical mg capsule morning. Branc h gabapentin 2022-0 2022- No [id number] 400mg Take 1 [facility] 400 mg 5-25 08-18 capsule by ity of capsule 00:00: 00:00 mouth in [place] 00 :00 the Medical morning Branch and 1 capsule at noon and 1 capsule in the evening. Do all this for 90 days. SERTraline 2022-0 2022- No [id number] 25mg Take 1 [facility] 25 mg 5-25 08-18 tablet by ity of tablet 00:00: 00:00 mouth in [place] 00 :00 the Medical morning. Branch Bifidobacte 2022-0 3- No [id number] 4mg Take 1 [facility] rium 5-25 08-18 capsule by ity of [place] 00:00: 00:[place] (ALIGN[place] 4 00 :00 the Medical mg capsule morning. Branc h SERTraline 3-0 2022- No [id number] 100mg Take 1 [facility] 100 mg 5-25 07-19 tablet by ity of tablet 00:00: 00:00 mouth in [place] 00 :00 the Medical morning. Branch SERTraline 2023-0 2023- No [id number] 100mg Take 1 [facility] 100 mg 5-25 07-19 tablet by ity of tablet 00:00: 00:00 mouth in [place] 00 :00 the Medical morning. Branch SERTraline 2022- No [id number] 100mg Take 1 [facility] 100 mg 5-25 07-19 tablet by ity of tablet 00:00: 00:00 mouth in [place] 00 :00 the Medical morning. Branch SERTraline 2022- No [id number] 100mg Take 1 [facility] 100 mg 5-25 07-19 tablet by ity of tablet 00:00: 00:00 mouth in [place] 00 :00 the Medical morning. Branch divalproex 2022- No [id number] 500mg Take 1 [facility] ER 500 mg [...] in ity o f ets 10:46: the [place] (ACCU-CHEK 19 morning Medica l SOFT DEV and 1 Each Branc h LANCETS at noon MISC) and 1 Each in the evening. Miscellaneo Yes Bilateral U nivers us Medical 5-23 prosthetic ity of Supply Misc 10:46: s - [facility] [place] 19 Medical Branch lancing Yes 1{each} Take 1 Unive rs device/lanc 5-23 Each in ity o f ets 10:46: the [place] (ACCU-CHEK 19 morning Medica l SOFT DEV and 1 Each Branc h LANCETS at noon MISC) and 1 Each in the evening. Miscellaneo Yes Bilateral U nivers us Medical 5-23 prosthetic ity of Supply Misc 10:46: s - [facility] 19 Medical Branch lancing Yes 1{each} Take 1 Unive rs device/lanc 5-23 Each in ity o f ets 10:46: the [place] (ACCU-CHEK 19 morning Medica l SOFT DEV [...] Each in ity o ets 10:46: the [place] (ACCU-CHEK 19 morning [...] Each in ity o ets 10:46: the [place] (ACCU-CHEK 19 morning [...] Each in ity o ets 10:46: the [place] (ACCU-CHEK 19 morning Medica l SOFT DEV and 1 Each Branc h LANCETS at noon MISC) and 1 Each in the evening. Miscellaneo 2022-0 Yes Bilateral U nivers us Medical 5-23 prosthetic ity of Supply Mis 10:46: s - [facility] [place] 19 Medical Branch lancing 0 Yes 1{each} Take 1 Unive rs device/lanc 5-23 Each in ity o ets 10:46: the [place] (ACCU-CHEK 19 morning Medica l SOFT DEV and 1 Each Branc h LANCETS at noon MIS) and 1 Each in the evening. SERTraline 2022-0 Yes [id number] 100mg Take 1 [facility] 100 mg 5-19 tablet by ity of tablet 00:00: mouth in [place] 00 the Medical morning. Branch SERTraline 2022-0 Yes [id number] 100mg Take 1 [facility] 100 mg 5-19 tablet by ity of tablet 00:00: mouth in [place] 00 the Medical morning. Branch SERTraline 2022-0 Yes [id number] 100mg Take 1 [facility] 100 mg 5-19 tablet by ity of tablet 00:00: mouth in [place] 00 the Medical morning. Branch SERTraline 2022- No [id number] 100mg Take 1 [facility] 100 mg 5-19 05-25 tablet by ity of tablet 00:00: 00:00 mouth in [place] 00 :00 the Medical morning. Branch SERTraline 2022- No [id number] 100mg Take 1 [facility] 100 mg 5-19 05-25 tablet by ity of tablet 00:00: 00:00 mouth in [place] 00 :00 the Medical morning. Branch SERTraline 2022- No [id number] 100mg Take 1 [facility] 100 mg 5-19 05-25 tablet by ity of tablet 00:00: 00:00 mouth in [place] 00 :00 the Medical morning. Branch SERTraline 2022- No [id number] 100mg Take 1 [facility] 100 mg 5-19 05-25 tablet by ity of tablet 00:00: 00:00 mouth in [place] 00 :00 the Medical morning. Branch blood sugar Yes [id number] Check U nivers diagnostic 5-18 blood ity of strip 00:00: sugar 2 [place] 00 times a Medical day. Branch E11.9. Brand per insurance. Uses ACCU-CHEK machine Lancets Yes [id number] Check Unive rs Misc 5-18 blood ity of 00:00: sugar 2 [place] 00 times a Medical day. Branch E11.9. Brand per insurance. amiodarone Yes [id number] 200mg Take 1 [facility] 200 mg 5-18 tablet by ity of tablet 00:00: mouth in [place] 00 the Medical morning. Branch apixaban 5 Yes 5mg Take 1 Unive rs mg tablet 5-18 tablet by ity o f 00:00: mouth in [place] 00 the Medical morning Branch and 1 tablet in the evening. Indication s: ATRIAL FIBRILLATI ON atorvastati Yes [id number] 40mg Take 1 [facility] n 40 mg 5-18 tablet by ity of tablet 00:00: mouth at [place] [address] bedtime. Medical Branch lisinopriL Yes [id number] 2.5mg Take 1 [facility] 2.5 mg 5-18 tablet by ity of tablet 00:00: mouth in [place] 00 the Medical morning. Branch metoprolol Yes [id number] 25mg Take 1 U nivers tartrate 25 5-18 tablet by ity of mg tablet 00:00: [place] 00 the Medical morning Branch and 1 tablet in the evening. blood sugar 2022-0 Yes [id number] Check U nivers diagnostic 5-18 blood ity of strip 00:00: sugar 2 [place] 00 times a Medical day. Branch E11.9. Brand per insurance. Uses ACCU-CHEK machine Lancets 2022-0 Yes [id number] Check Unive rs Misc 5-18 blood ity of 00:00: sugar 2 [place] 00 times a Medical day. Branch E11.9. Brand per insurance. amiodarone 0 Yes [id number] 200mg Take 1 [facility] 200 mg 5-18 tablet by ity of tablet 00:00: mouth in [place] 00 the Medical morning. Branch apixaban 5 2022-0 Yes 5mg Take 1 Unive rs mg tablet 5-18 tablet by ity o f 00:00: mouth in [place] 00 the Medical morning Branch and 1 tablet in the evening. Indication s: ATRIAL FIBRILLATI ON atorvastati 0 Yes [id number] 40mg Take 1 [facility] n 40 mg 5-18 tablet by ity of tablet 00:00: mouth at [place] 00 bedtime. Medical Branch lisinopriL 0 Yes [id number] 2.5mg Take 1 [facility] 2.5 mg 5-18 tablet by ity of tablet 00:00: mouth in [place] 00 the Medical morning. Branch metoprolol 0 Yes [id number] 25mg Take 1 U nivers tartrate 25 5-18 tablet by ity of mg tablet 00:00: mouth in [facility] s 00 the Medical morning Branch and 1 tablet in the evening. blood sugar 0 Yes [id number] Check U nivers diagnostic 5-18 blood ity of strip 00:00: sugar 2 [place] 00 times a Medical day. Branch E11.9. Brand per insurance. Uses ACCU-CHEK machine Lancets 2022-0 Yes [id number] Check Unive rs Misc 5-18 blood ity of 00:00: sugar 2 [place] 00 times a Medical day. Branch E11.9. Brand per insurance. amiodarone 2022-0 Yes [id number] 200mg Take 1 [facility] 200 mg 5-18 tablet by ity of tablet 00:00: mouth in [place] 00 the Medical morning. Branch apixaban 5 2022-0 Yes 5mg Take 1 Unive rs mg tablet 5-18 tablet by ity o f 00:00: mouth in [place] 00 the Medical morning Branch and 1 tablet in the evening. Indication s: ATRIAL FIBRILLATI ON atorvastati 2022-0 Yes [id number] 40mg Take 1 Univers n 40 mg 5-18 tablet by ity of tablet 00:00: mouth at [place] [address] bedtime. Medical Branch lisinopriL 2022-0 Yes [id number] 2.5mg Take 1 Univers 2.5 mg 5-18 tablet by ity of tablet 00:00: mouth in [place] 00 the Medical morning. Branch metoprolol 2022-0 Yes [id number] 25mg Take 1 U nivers tartrate 25 5-18 tablet by ity of mg tablet 00:00: mouth in [facility] 00 the Medical morning Branch and 1 tablet in the evening. blood sugar 0 Yes [id number] Check U nivers diagnostic 5-18 blood ity of strip 00:00: sugar 2 [place] 00 times a Medical day. Branch E11.9. Brand per insurance. Uses ACCU-CHEK machine Lancets 0 Yes [id number] Check Unive rs Misc 5-18 blood ity of 00:00: sugar 2 [place] 00 times a Medical day. Branch E11.9. Brand per insurance. amiodarone 0 Yes [id number] 200mg Take 1 [facility] 200 mg 5-18 tablet by ity of tablet 00:00: mouth in [place] 00 the Medical morning. Branch apixaban 5 2022-0 Yes 5mg Take 1 Unive rs mg tablet 5-18 tablet by ity o f 00:00: mouth in [place] 00 the Medical morning Branch and 1 tablet in the evening. Indication s: ATRIAL FIBRILLATI ON atorvastati 2022-0 Yes [id number] 40mg Take 1 Univers n 40 mg 5-18 tablet by ity of tablet 00:00: mouth at [place] [address] bedtime. Medical Branch lisinopriL 2022-0 Yes [id number] 2.5mg Take 1 Univers 2.5 mg 5-18 tablet by ity of tablet 00:00: mouth in [place] 00 the Medical morning. Branch metoprolol 2022-0 Yes [id number] 25mg Take 1 U nivers tartrate 25 5-18 tablet by ity of mg tablet 00:00: [place] 00 the Medical morning Branch and 1 tablet in the evening. blood sugar 2022-0 Yes [id number] Check U nivers diagnostic 5-18 blood ity of strip 00:00: sugar 2 [place] 00 times a Medical day. Branch E11.9. Brand per insurance. Uses ACCU-CHEK machine Lancets 2022-0 Yes [id number] Check Unive rs Misc 5-18 blood ity of 00:00: sugar 2 [place] 00 times a Medical day. Branch E11.9. Brand per insurance. amiodarone 2022-0 Yes [id number] 200mg Take 1 [facility] 200 mg 5-18 tablet by ity of tablet 00:00: mouth in [place] 00 the Medical morning. Branch apixaban 5 0 Yes 5mg Take 1 Unive rs mg tablet 5-18 tablet by ity o f 00:00: mouth in [place] 00 the Medical morning Branch and 1 tablet in the evening. Indication s: ATRIAL FIBRILLATI ON atorvastati 0 Yes [id number] 40mg Take 1 [facility] n 40 mg 5-18 tablet by [facility] of tablet 00:00: mouth at [place] 00 bedtime. Medical Branch lisinopriL Yes [id number] 2.5mg Take 1 [facility] 2.5 mg 5-18 tablet by ity of tablet 00:00: mouth in [place] 00 the Medical morning. Branch metoprolol 0 Yes [id number] 25mg Take 1 U nivers tartrate 25 5-18 tablet by ity of mg tablet 00:00: mouth in [facility] s 00 the Medical morning Branch and 1 tablet in the evening. blood sugar 2022-0 Yes [id number] Check U nivers diagnostic 5-18 blood ity of strip 00:00: sugar 2 [place] 00 times a Medical day. Branch E11.9. Brand per insurance. Uses ACCU-CHEK machine Lancets 2022-0 Yes [id number] Check Unive rs Misc 5-18 blood ity of 00:00: sugar 2 [place] 00 times a Medical day. Branch E11.9. Brand per insurance. amiodarone 2022-0 Yes [id number] 200mg Take 1 [facility] 200 mg 5-18 tablet by ity of tablet 00:00: mouth in [place] 00 the Medical morning. Branch apixaban 5 2023-0 Yes 5mg Take 1 [facility] rs mg tablet 5-18 tablet by ity o f 00:00: mouth in [place] 00 the Medical morning Branch and 1 tablet in the evening. Indication s: ATRIAL FIBRILLATI ON atorvastati 2022-0 Yes [id number] 40mg Take 1 [facility] n 40 mg 5-18 tablet by ity of tablet 00:00: mouth at [place] [address] bedtime. Medical Branch lisinopriL 2022-0 Yes [id number] 2.5mg Take 1 [facility] 2.5 mg 5-18 tablet by ity of tablet 00:00: mouth in [place] 00 the Medical morning. Branch metoprolol 0 Yes [id number] 25mg Take 1 U nivers tartrate 25 5-18 tablet by ity of mg tablet 00:00: mouth in [facility] 00 the morning Branch and 1 tablet in the evening. blood sugar 0 Yes [id number] Check U nivers diagnostic 5-18 blood ity of strip 00:00: sugar 2 [place] 00 times a Medical day. Branch E11.9. Brand per insurance. Uses ACCU-CHEK machine Lancets Yes [id number] Check Unive rs Misc 5-18 blood ity of 00:00: sugar 2 [place] 00 times a Medical day. Branch E11.9. Brand per insurance. amiodarone 0 Yes [id number] 200mg Take 1 [facility] 200 mg 5-18 tablet by ity of tablet 00:00: mouth in [place] 00 the Medical morning. Branch apixaban 5 0 Yes 5mg Take 1 [facility] rs mg tablet 5-18 tablet by ity o f 00:00: mouth in [place] the Medical morning Branch and 1 tablet in the evening. Indication s: ATRIAL FIBRILLATI ON atorvastati 2022-0 Yes [id number] 40mg Take 1 [facility] n 40 mg 5-18 tablet by ity of tablet 00:00: mouth at [place] [address] bedtime. Medical Branch lisinopriL 2022-0 Yes [id number] 2.5mg Take 1 [facility] 2.5 mg 5-18 tablet by ity of tablet 00:00: mouth in [place] 00 the Medical morning. Branch metoprolol 2022-0 Yes [id number] 25mg Take 1 U nivers tartrate 25 5-18 tablet by ity of mg tablet 00:00: mouth in [facility] s 00 the Medical morning Branch and 1 tablet in the evening. blood sugar 2022-0 Yes [id number] Check U nivers diagnostic 5-18 blood ity of strip 00:00: sugar 2 [place] 00 times a Medical day. Branch E11.9. Brand per insurance. Uses ACCU-CHEK machine Lancets 2022-0 Yes [id number] Check Unive rs Misc 5-18 blood ity of 00:00: sugar 2 [place] 00 times a Medical day. Branch E11.9. Brand per insurance. amiodarone 2022-0 Yes [id number] 200mg Take 1 [facility] 200 mg 5-18 tablet by ity of tablet 00:00: mouth in [place] 00 the Medical morning. Branch apixaban 5 0 Yes 5mg Take 1 [facility] rs mg tablet 5-18 tablet by ity o f 00:00: mouth in [place] 00 the Medical morning Branch and 1 tablet in the evening. Indication s: ATRIAL FIBRILLATI ON atorvastati 0 Yes [id number] 40mg Take 1 [facility] n 40 mg 5-18 tablet by ity of tablet 00:00: mouth at [place] [address] bedtime. Medical Branch lisinopriL 0 Yes [id number] 2.5mg Take 1 [facility] 2.5 mg 5-18 tablet by ity of tablet 00:00: mouth in [place] 00 the Medical morning. Branch metoprolol 0 Yes [id number] 25mg Take 1 U nivers tartrate 25 5-18 tablet by ity of mg tablet 00:00: mouth in [facility] s 00 the Medical morning Branch and 1 tablet in the evening. Lancets 2022-0 Yes [id number] Check Unive rs Misc 5-18 blood ity of 00:00: sugar 2 [place] 00 times a Medical day. Branch E11.9. Brand per insurance. amiodarone 2022-0 Yes [id number] 200mg Take 1 [facility] 200 mg 5-18 tablet by ity of tablet 00:00: mouth in [place] 00 the Medical morning. Branch apixaban 5 2022-0 Yes 5mg Take 1 [facility]ive rs mg tablet 5-18 tablet by ity o f 00:00: mouth in [place] 00 the Medical morning Branch and 1 tablet in the evening. Indication s: ATRIAL FIBRILLATI ON atorvastati 2022-0 Yes [id number] 40mg Take 1 [facility] n 40 mg 5-18 tablet by ity of tablet 00:00: mouth at [place] 00 bedtime. Medical Branch lisinopriL 2022-0 Yes [id number] 2.5mg Take 1 [facility] 2.5 mg 5-18 tablet by ity of tablet 00:00: mouth in [place] 00 the Medical morning. Branch metoprolol 2022-0 Yes [id number] 25mg Take 1 U nivers tartrate 25 5-18 tablet by ity of mg tablet 00:00: mouth in [place] 00 the Medical morning Branch and 1 tablet in the evening. Lancets 2022-0 Yes [id number] Check Unive rs Misc 5-18 blood ity of 00:00: sugar 2 [place] times a Medical day. Branch E11.9. Brand per insurance. amiodarone 2022-0 Yes [id number] 200mg Take 1 [facility] 200 mg 5-18 tablet by ity of tablet 00:00: mouth in [place] 00 the Medical morning. Branch apixaban 5 2022-0 Yes 5mg Take 1 [facility] rs mg tablet 5-18 tablet by ity o f 00:00: mouth in [place] 00 the Medical morning Branch and 1 tablet in the evening. Indication s: ATRIAL FIBRILLATI ON atorvastati 2022-0 Yes [id number] 40mg Take 1 [facility] n 40 mg 5-18 tablet by ity of tablet 00:00: mouth at [place] 00 bedtime. Medical Branch lisinopriL 2022-0 Yes [id number] 2.5mg Take 1 [facility] 2.5 mg 5-18 tablet by ity of tablet 00:00: mouth in [place] 00 the Medical morning. Branch metoprolol 2022-0 Yes [id number] 25mg Take 1 U nivers tartrate 25 5-18 tablet by [facility]y of mg tablet 00:00: mouth [place] 00 the Medical morning Branch and 1 tablet in the evening. Lancets 2022-0 Yes [id number] Check Unive rs Misc 5-18 blood ity of 00:00: sugar 2 [place] 00 times a Medical day. Branch E11.9. Brand per insurance. amiodarone 2022-0 Yes [id number] 200mg Take 1 [facility] 200 mg 5-18 tablet by ity of tablet 00:00: mouth in [place] 00 the Medical morning. Branch apixaban 5 2022-0 Yes 5mg Take 1 [facility] rs mg tablet 5-18 tablet by ity o f 00:00: mouth in [place] 00 the Medical morning Branch and 1 tablet in the evening. Indication s: ATRIAL FIBRILLATI ON atorvastati 2022-0 Yes [id number] 40mg Take 1 [facility] n 40 mg 5-18 tablet by ity of tablet 00:00: mouth at [place] 00 bedtime. Medical Branch lisinopriL 2022-0 Yes [id number] 2.5mg Take 1 [facility] 2.5 mg 5-18 tablet by ity of tablet 00:00: mouth in [place] 00 the Medical morning. Branch metoprolol 0 Yes [id number] 25mg Take 1 U nivers tartrate 25 5-18 tablet by ity of mg tablet 00:00: mouth in [facility] 00 the Medical morning Branch and 1 tablet in the evening. Lancets 2022- Yes [id number] Check Unive rs Misc 5-18 blood ity of 00:00: sugar 2 [place] 00 times a Medical day. Branch E11.9. Brand per insurance. amiodarone 0 Yes [id number] 200mg Take 1 [facility] 200 mg 5-18 tablet by ity of tablet 00:00: mouth in [place] 00 the Medical morning. Branch apixaban 5 2022-0 Yes 5mg Take 1 [facility] rs mg tablet 5-18 tablet by ity o f 00:00: mouth in [place] 00 the Medical morning Branch and 1 tablet in the evening. Indication s: ATRIAL FIBRILLATI ON atorvastati 2022-0 Yes [id number] 40mg Take 1 [facility] n 40 mg 5-18 tablet by ity of tablet 00:00: mouth at [place] 00 bedtime. Medical Branch lisinopriL 2022-0 Yes [id number] 2.5mg Take 1 [facility] 2.5 mg 5-18 tablet by ity of tablet 00:00: mouth in [place] 00 the Medical morning. Branch metoprolol 2022-0 Yes [id number] 25mg Take 1 U nivers tartrate 25 5-18 tablet by ity of mg tablet 00:00: mouth in [facility] s 00 the Medical morning Branch and 1 tablet in the evening. Lancets 2022-0 Yes [id number] Check Unive rs Misc 5-18 blood ity of 00:00: sugar 2 [place] 00 times a Medical day. Branch E11.9. Brand per insurance. atorvastati 2022-0 Yes [id number] 40mg Take 1 [facility] n 40 mg 5-18 tablet by ity of tablet 00:00: mouth at [place] 00 bedtime. Medical Branch lisinopriL 2022-0 Yes [id number] 2.5mg Take 1 [facility] 2.5 mg 5-18 tablet by ity of tablet 00:00: mouth in [place] 00 the Medical morning. Branch metoprolol 2022-0 Yes [id number] 25mg Take 1 U nivers tartrate 25 5-18 tablet by ity of mg tablet 00:00: mouth [place] 00 the Medical morning Branch and 1 tablet in the evening. Lancets 2022-0 Yes [id number] Check Unive rs Misc 5-18 blood ity of 00:00: sugar 2 [place] 00 times a Medical day. Branch E11.9. Brand per insurance. atorvastati 2022-0 Yes [id number] 40mg Take 1 [facility] n 40 mg 5-18 tablet by ity of tablet 00:00: mouth at [place] 00 bedtime. Medical Branch lisinopriL 2022-0 Yes [id number] 2.5mg Take 1 [facility] 2.5 mg 5-18 tablet by ity of tablet 00:00: mouth in [place] 00 the Medical morning. Branch metoprolol 2022-0 Yes [id number] 25mg Take 1 U nivers tartrate 25 5-18 tablet by ity of mg tablet 00:00: mouth [place] 00 the Medical morning Branch and 1 tablet in the evening. Lancets 2022-0 Yes [id number] Check Unive rs Misc 5-18 blood ity of 00:00: sugar 2 [place] 00 times a Medical day. Branch E11.9. Brand per insurance. atorvastati 2022-0 Yes [id number] 40mg Take 1 [facility] n 40 mg 5-18 tablet by ity of tablet 00:00: mouth at [place] 00 bedtime. Medical Branch lisinopriL 2022-0 Yes [id number] 2.5mg Take 1 [facility] 2.5 mg 5-18 tablet by ity of tablet 00:00: mouth in [place] 00 the Medical morning. Branch metoprolol 2022-0 Yes [id number] 25mg Take 1 U nivers tartrate 25 5-18 tablet by ity of mg tablet 00:00: mouth [place] 00 the Medical morning Branch and 1 tablet in the evening. Lancets Yes [id number] Check Unive rs Misc 5-18 blood ity of 00:00: sugar 2 [place] 00 times a Medical day. Branch E11.9. Brand per insurance. atorvastati 0 Yes [id number] 40mg Take 1 [facility] n 40 mg 5-18 tablet by ity of tablet 00:00: mouth at [place] 00 bedtime. Medical Branch lisinopriL Yes [id number] 2.5mg Take 1 [facility] 2.5 mg 5-18 tablet by ity of tablet 00:00: mouth in [place] 00 the Medical morning. Branch metoprolol Yes [id number] 25mg Take 1 U nivers tartrate 25 5-18 tablet by ity of mg tablet 00:00: mouth [place] 00 the Medical morning Branch and 1 tablet in the evening. Lancets 0 Yes [id number] Check Unive rs Misc 5-18 blood ity of 00:00: sugar 2 [place] 00 times a Medical day. Branch E11.9. Brand per insurance. atorvastati Yes [id number] 40mg Take 1 [facility] n 40 mg 5-18 tablet by ity of tablet 00:00: mouth at [place] 00 bedtime. Medical Branch lisinopriL 0 Yes [id number] 2.5mg Take 1 [facility] 2.5 mg 5-18 tablet by ity of tablet 00:00: mouth in [place] 00 the Medical morning. Branch metoprolol 0 Yes [id number] 25mg Take 1 U nivers tartrate 25 5-18 tablet by ity of mg tablet 00:00: mouth [place] 00 the Medical morning Branch and 1 tablet in the evening. Lancets 0 Yes [id number] Check Unive rs Misc 5-18 blood ity of 00:00: sugar 2 [place] 00 times a Medical day. Branch E11.9. Brand per insurance. Lancets 0 Yes [id number] Check Unive rs Misc 5-18 blood ity of 00:00: sugar 2 [place] 00 times a Medical day. Branch E11.9. Brand per insurance. Lancets 0 Yes [id number] Check Unive rs Misc 5-18 blood ity of 00:00: sugar 2 [place] 00 times a Medical day. Branch E11.9. Brand per insurance. Lancets 0 Yes [id number] Check Unive rs Misc 5-18 blood ity of 00:00: sugar 2 [place] 00 times a Medical day. Branch E11.9. Brand per insurance. Lancets 0 Yes [id number] Check Unive rs Misc 5-18 blood ity of 00:00: sugar 2 [place] 00 times a Medical day. Branch E11.9. Brand per insurance. Lancets 0 Yes [id number] Check Unive rs Misc 5-18 blood ity of 00:00: sugar 2 [place] 00 times a Medical day. Branch E11.9. Brand per insurance. Lancets 0 Yes [id number] Check Unive rs Misc 5-18 blood ity of 00:00: sugar 2 [place] 00 times a Medical day. Branch E11.9. Brand per insurance. Lancets 0 Yes [id number] Check Unive rs Misc 5-18 blood ity of 00:00: sugar 2 [place] 00 times a Medical day. Branch E11.9. Brand per insurance. Lancets 0 Yes [id number] Check Unive rs Misc 5-18 blood ity of 00:00: sugar 2 [place] 00 times a Medical day. Branch E11.9. Brand per insurance. Lancets 0 Yes [id number] Check Unive rs Misc 5-18 blood ity of 00:00: sugar 2 [place] 00 times a Medical day. Branch E11.9. Brand per insurance. blood sugar 2022-0 Yes [id number] Check U nivers diagnostic 5-18 blood ity of strip 00:00: sugar 2 [place] 00 times a Medical day. Branch E11.9. Brand per insurance. Uses ACCU-CHEK machine Lancets 2022-0 Yes [id number] Check Unive rs Misc 5-18 blood ity of 00:00: sugar 2 [place] 00 times a Medical day. Branch E11.9. Brand per insurance. amiodarone 0 Yes [id number] 200mg Take 1 [facility] 200 mg 5-18 tablet by ity of tablet 00:00: mouth in [place] 00 the Medical morning. Branch apixaban 5 2022-0 Yes 5mg Take 1 Unive rs mg tablet 5-18 tablet by ity o f 00:00: mouth in [place] 00 the morning Branch and 1 tablet in the evening. Indication s: ATRIAL FIBRILLATI ON atorvastati Yes [id number] 40mg Take 1 [facility] n 40 mg 5-18 tablet by ity of tablet 00:00: mouth at [place] 00 bedtime. Medical Branch divalproex 2022-0 Yes [id number] 250mg Take 1 [facility] ER 250 mg 5-18 tablet by ity o f 24 hr 00:00: mouth [place] tablet 00 every 24 Medical (twenty-fo Branch ur) hours. gabapentin 2022-0 Yes [id number] 300mg Take 1 [facility] 300 mg 5-18 capsule by ity of capsule 00:00: mouth in [place] 00 the morning Branch and 1 capsule at noon and 1 capsule in the evening. lisinopriL Yes [id number] 2.5mg Take 1 [facility] 2.5 mg 5-18 tablet by ity of tablet 00:00: mouth in [place] 00 the morning. Branch metoprolol 0 Yes [id number] 25mg Take 1 U nivers tartrate 25 5-18 tablet by ity of mg tablet 00:00: mouth in [facility] s 00 the Medical morning Branch and 1 tablet in the evening. blood sugar Yes [id number] Check U nivers diagnostic 5-18 blood ity of strip 00:00: sugar 2 [place] 00 times a Medical day. Branch E11.9. Brand per insurance. Uses ACCU-CHEK machine Lancets Yes [id number] Check Unive rs Misc 5-18 blood ity of 00:00: sugar 2 [place] 00 times a Medical day. Branch E11.9. Brand per insurance. amiodarone Yes [id number] 200mg Take 1 [facility] 200 mg 5-18 tablet by ity of tablet 00:00: mouth in [place] 00 the Medical morning. Branch apixaban 5 0 Yes 5mg Take 1 Unive rs mg tablet 5-18 tablet by ity o f 00:00: mouth in [place] 00 the Medical morning Branch and 1 tablet in the evening. Indication s: ATRIAL FIBRILLATI ON atorvastati 2022-0 Yes [id number] 40mg Take 1 [facility] n 40 mg 5-18 tablet by ity of tablet 00:00: mouth at [place] 00 bedtime. Medical Branch divalproex 2022-0 Yes [id number] 250mg Take 1 [facility] ER 250 mg 5-18 tablet by ity o f 24 hr 00:00: mouth [place] tablet 00 every 24 Medical ( Branch ur) hours. gabapentin 2022-0 Yes [id number] 300mg Take 1 [facility] 300 mg 5-18 capsule by ity of capsule 00:00: mouth in [place] 00 the morning Branch and 1 capsule at noon and 1 capsule in the evening. lisinopriL 0 Yes [id number] 2.5mg Take 1 [facility] 2.5 mg 5-18 tablet by ity of tablet 00:00: mouth in [place] 00 the morning. Branch metoprolol 0 Yes [id number] 25mg Take 1 U nivers tartrate 25 5-18 tablet by ity of mg tablet 00:00: mouth in [facility] s 00 the morning Branch and 1 tablet in the evening. blood sugar 0 Yes [id number] Check U nivers diagnostic 5-18 blood ity of strip 00:00: sugar 2 [place] 00 times a Medical day. Branch E11.9. Brand per insurance. Uses ACCU-CHEK machine Lancets Yes [id number] Check Unive rs Misc 5-18 blood ity of 00:00: sugar 2 [place] 00 times a Medical day. Branch E11.9. Brand per insurance. amiodarone 2022-0 Yes [id number] 200mg Take 1 [facility] 200 mg 5-18 tablet by ity of tablet 00:00: mouth in [place] 00 the Medical morning. Branch apixaban 5 2022-0 Yes 5mg Take 1 Unive rs mg tablet 5-18 tablet by ity o f 00:00: mouth in [place] 00 the Medical morning Branch and 1 tablet in the evening. Indication s: ATRIAL FIBRILLATI ON atorvastati 2022-0 Yes [id number] 40mg Take 1 [facility] n 40 mg 5-18 tablet by ity of tablet 00:00: mouth at [place] 00 bedtime. Medical Branch divalproex 2022-0 Yes [id number] 250mg Take 1 [facility] ER 250 mg 5-18 tablet by ity o f 24 hr 00:00: mouth [place] tablet 00 every 24 Medical (twenty- Branch ur) hours. gabapentin 2022-0 Yes [id number] 300mg Take 1 [facility] 300 mg 5-18 capsule by ity of capsule 00:00: mouth in [place] 00 the morning Branch and 1 capsule at noon and 1 capsule in the evening. lisinopriL 2022-0 Yes [id number] 2.5mg Take 1 [facility] 2.5 mg 5-18 tablet by ity of tablet 00:00: mouth in [place] 00 the morning. Branch metoprolol 2022-0 Yes [id number] 25mg Take 1 U nivers tartrate 25 5-18 tablet by ity of mg tablet 00:00: mouth in [facility] 00 the morning Branch and 1 tablet in the evening. blood sugar 2022-0 Yes [id number] Check U nivers diagnostic 5-18 blood ity of strip 00:00: sugar 2 [place] times a Medical day. Branch E11.9. Brand per insurance. Uses ACCU-CHEK machine Lancets Yes [id number] Check Unive rs Misc 5-18 blood ity of 00:00: sugar 2 [place] times a Medical day. Branch E11.9. Brand per insurance. amiodarone 2022-0 Yes [id number] 200mg Take 1 [facility] 200 mg 5-18 tablet by ity of tablet 00:00: mouth in [place] 00 the morning. Branch apixaban 5 0 Yes 5mg Take 1 Unive rs mg tablet 5-18 tablet by ity o f 00:00: mouth in [place] the Branch and 1 tablet in the evening. Indication s: ATRIAL FIBRILLATI ON atorvastati 2022-0 Yes [id number] 40mg Take 1 [facility] n 40 mg 5-18 tablet by ity of tablet 00:00: mouth at [place] 00 bedtime. Medical Branch divalproex 2022-0 Yes [id number] 250mg Take 1 [facility] ER 250 mg 5-18 tablet by ity o f 24 hr 00:00: mouth [place] tablet 00 every 24 Medical ([facility] ur) hours. gabapentin 2022-0 Yes [id number] 300mg Take 1 [facility] 300 mg 5-18 capsule by ity of capsule 00:00: mouth in [place] the morning Branch and 1 capsule at noon and 1 capsule in the evening. lisinopriL 2022-0 Yes [id number] 2.5mg Take 1 [facility] 2.5 mg 5-18 tablet by ity of tablet 00:00: mouth in [place] 00 the morning. Branch metoprolol 2022-0 Yes [id number] 25mg Take 1 U nivers tartrate 25 5-18 tablet by ity of mg tablet 00:00: mouth in [facility] s 00 the morning Branch and 1 tablet in the evening. blood sugar 2022-0 Yes [id number] Check U nivers diagnostic 5-18 blood ity of strip 00:00: sugar 2 [place] 00 times a Medical day. Branch E11.9. Brand per insurance. Uses ACCU-CHEK machine Lancets Yes [id number] Check Unive rs Misc 5-18 blood ity of 00:00: sugar 2 [place] times a Medical day. Branch E11.9. Brand per insurance. amiodarone 0 Yes [id number] 200mg Take 1 [facility] 200 mg 5-18 tablet by ity of tablet 00:00: mouth in [place] 00 the morning. Branch apixaban 5 0 Yes 5mg Take 1 Unive rs mg tablet 5-18 tablet by ity o f 00:00: mouth in [place] the morning Branch and 1 tablet in the evening. Indication s: ATRIAL FIBRILLATI ON atorvastati 0 Yes [id number] 40mg Take 1 [facility] n 40 mg 5-18 tablet by ity of tablet 00:00: mouth at [place] 00 bedtime. Medical Branch divalproex 2022-0 Yes [id number] 250mg Take 1 [facility] ER 250 mg 5-18 tablet by ity o f 24 hr 00:00: mouth [place] tablet 00 every 24 Medical (twenty-fo Branch ur) hours. gabapentin 2022-0 Yes [id number] 300mg Take 1 [facility] 300 mg 5-18 capsule by ity of capsule 00:00: mouth in [place] 00 the morning Branch and 1 capsule at noon and 1 capsule in the evening. lisinopriL 2022-0 Yes [id number] 2.5mg Take 1 [facility] 2.5 mg 5-18 tablet by ity of tablet 00:00: mouth in [place] 00 the Medical morning. Branch metoprolol 2022-0 Yes [id number] 25mg Take 1 U nivers tartrate 25 5-18 tablet by ity of mg tablet 00:00: mouth in [place] 00 the Medical morning Branch and 1 tablet in the evening. blood sugar 2022-0 Yes [id number] Check U nivers diagnostic 5-18 blood ity of strip 00:00: sugar 2 [place] 00 times a Medical day. Branch E11.9. Brand per insurance. Uses ACCU-CHEK machine Lancets 2022-0 Yes [id number] Check Unive rs Misc 5-18 blood ity of 00:00: sugar 2 [place] 00 times a Medical day. Branch E11.9. Brand per insurance. amiodarone 2022-0 Yes [id number] 200mg Take 1 [facility] 200 mg 5-18 tablet by ity of tablet 00:00: mouth in [place] 00 the Medical morning. Branch apixaban 5 2022-0 Yes 5mg Take 1 Unive rs mg tablet 5-18 tablet by ity o f 00:00: mouth in [place] 00 the Medical morning Branch and 1 tablet in the evening. Indication s: ATRIAL FIBRILLATI ON atorvastati 2022-0 Yes [id number] 40mg Take 1 [facility] n 40 mg 5-18 tablet by ity of tablet 00:00: mouth at [place] 00 bedtime. Medical Branch lisinopriL 0 Yes [id number] 2.5mg Take 1 [facility] 2.5 mg 5-18 tablet by ity of tablet 00:00: mouth in [place] 00 the Medical morning. Branch metoprolol 0 Yes [id number] 25mg Take 1 U nivers tartrate 25 5-18 tablet by ity of mg tablet 00:00: mouth in [facility] s 00 the Medical morning Branch and 1 tablet in the evening. blood sugar 2022-0 Yes [id number] Check U nivers diagnostic 5-18 blood ity of strip 00:00: sugar 2 [place] 00 times a Medical day. Branch E11.9. Brand per insurance. Uses ACCU-CHEK machine Lancets 2022-0 Yes [id number] Check Unive rs Misc 5-18 blood ity of 00:00: sugar 2 [place] 00 times a Medical day. Branch E11.9. Brand per insurance. amiodarone 2022-0 Yes [id number] 200mg Take 1 [facility] 200 mg 5-18 tablet by ity of tablet 00:00: mouth in [place] 00 the Medical morning. Branch apixaban 5 2022-0 Yes 5mg Take 1 Unive rs mg tablet 5-18 tablet by ity o f 00:00: mouth in [place] 00 the Medical morning Branch and 1 tablet in the evening. Indication s: ATRIAL FIBRILLATI ON atorvastati 2022-0 Yes [id number] 40mg Take 1 [facility] n 40 mg 5-18 tablet by ity of tablet 00:00: mouth at [place] [address] bedtime. Medical Branch lisinopriL 2022-0 Yes [id number] 2.5mg Take 1 [facility] 2.5 mg 5-18 tablet by ity of tablet 00:00: mouth in [place] 00 the Medical morning. Branch metoprolol 0 Yes [id number] 25mg Take 1 U nivers tartrate 25 5-18 tablet by ity of mg tablet 00:00: mouth in [facility] 00 the morning Branch and 1 tablet in the evening. blood sugar 0 Yes [id number] Check U nivers diagnostic 5-18 blood ity of strip 00:00: sugar 2 [place] 00 times a Medical day. Branch E11.9. Brand per insurance. Uses ACCU-CHEK machine Lancets Yes [id number] Check Unive rs Misc 5-18 blood ity of 00:00: sugar 2 [place] 00 times a Medical day. Branch E11.9. Brand per insurance. amiodarone 0 Yes [id number] 200mg Take 1 [facility] 200 mg 5-18 tablet by ity of tablet 00:00: mouth in [place] 00 the Medical morning. Branch apixaban 5 2022-0 Yes 5mg Take 1 Unive rs mg tablet 5-18 tablet by ity o f 00:00: mouth in [place] 00 the Medical morning Branch and 1 tablet in the evening. Indication s: ATRIAL FIBRILLATI ON atorvastati 2022-0 Yes [id number] 40mg Take 1 [facility] n 40 mg 5-18 tablet by ity of tablet 00:00: mouth at [place] [address] bedtime. Medical Branch lisinopriL 2022-0 Yes [id number] 2.5mg Take 1 [facility] 2.5 mg 5-18 tablet by ity of tablet 00:00: mouth in [place] 00 the Medical morning. Branch metoprolol 2022-0 Yes [id number] 25mg Take 1 U nivers tartrate 25 5-18 tablet by ity of mg tablet 00:00: mouth in [facility] s 00 the Medical morning Branch and 1 tablet in the evening. blood sugar 2022-0 Yes [id number] Check U nivers diagnostic 5-18 blood ity of strip 00:00: sugar 2 [place] 00 times a Medical day. Branch E11.9. Brand per insurance. Uses ACCU-CHEK machine Lancets 2022-0 Yes [id number] Check Unive rs Misc 5-18 blood ity of 00:00: sugar 2 [place] 00 times a Medical day. Branch E11.9. Brand per insurance. amiodarone 2022-0 Yes [id number] 200mg Take 1 [facility] 200 mg 5-18 tablet by ity of tablet 00:00: mouth in [place] 00 the Medical morning. Branch apixaban 5 2022-0 Yes 5mg Take 1 Unive rs mg tablet 5-18 tablet by ity o f 00:00: mouth in [place] 00 the Medical morning Branch and 1 tablet in the evening. Indication s: ATRIAL FIBRILLATI ON atorvastati 2022-0 Yes [id number] 40mg Take 1 [facility] n 40 mg 5-18 tablet by ity of tablet 00:00: mouth at [place] 00 bedtime. Medical Branch lisinopriL 0 Yes [id number] 2.5mg Take 1 Univers 2.5 mg 5-18 tablet by ity of tablet 00:00: mouth in [place] 00 the Medical morning. Branch metoprolol 2022-0 Yes [id number] 25mg Take 1 U nivers tartrate 25 5-18 tablet by ity of mg tablet 00:00: mouth in [facility] s 00 the Medical morning Branch and 1 tablet in the evening. blood sugar 2022-0 Yes [id number] Check U nivers diagnostic 5-18 blood ity of strip 00:00: sugar 2 [place] 00 times a Medical day. Branch E11.9. Brand per insurance. Uses ACCU-CHEK machine Lancets 2022-0 Yes [id number] Check Unive rs Misc 5-18 blood ity of 00:00: sugar 2 [place] 00 times a Medical day. Branch E11.9. Brand per insurance. amiodarone 2022-0 Yes [id number] 200mg Take 1 [facility] 200 mg 5-18 tablet by ity of tablet 00:00: mouth in [place] 00 the Medical morning. Branch apixaban 5 2022-0 Yes 5mg Take 1 Unive rs mg tablet 5-18 tablet by ity o f 00:00: mouth in [place] 00 the Medical morning Branch and 1 tablet in the evening. Indication s: ATRIAL FIBRILLATI ON atorvastati 2022-0 Yes [id number] 40mg Take 1 Univers n 40 mg 5-18 tablet by ity of tablet 00:00: mouth at [place] [address] bedtime. Medical Branch lisinopriL 2022-0 Yes [id number] 2.5mg Take 1 Univers 2.5 mg 5-18 tablet by ity of tablet 00:00: mouth in [place] 00 the Medical morning. Branch metoprolol 0 Yes [id number] 25mg Take 1 U nivers tartrate 25 5-18 tablet by ity of mg tablet 00:00: mouth in [facility] the morning Branch and 1 tablet in the evening. blood sugar 0 Yes [id number] Check U nivers diagnostic 5-18 blood ity of strip 00:00: sugar 2 [place] 00 times a Medical day. Branch E11.9. Brand per insurance. Uses ACCU-CHEK machine Lancets Yes [id number] Check Unive rs Misc 5-18 blood ity of 00:00: sugar 2 [place] 00 times a Medical day. Branch E11.9. Brand per insurance. amiodarone 0 Yes [id number] 200mg Take 1 [facility] 200 mg 5-18 tablet by ity of tablet 00:00: mouth in [place] the Medical morning. Branch apixaban 5 0 Yes 5mg Take 1 Unive rs mg tablet 5-18 tablet by ity o f 00:00: mouth in [place] the morning Branch and 1 tablet in the evening. Indication s: ATRIAL FIBRILLATI ON atorvastati 2022-0 Yes [id number] 40mg Take 1 Univers n 40 mg 5-18 tablet by ity of tablet 00:00: mouth at [place] [address] bedtime. Medical Branch lisinopriL 2022-0 Yes [id number] 2.5mg Take 1 [facility] 2.5 mg 5-18 tablet by ity of tablet 00:00: mouth in [place] 00 the Medical morning. Branch metoprolol 2022-0 Yes [id number] 25mg Take 1 U nivers tartrate 25 5-18 tablet by ity of mg tablet 00:00: mouth in [place] 00 the Medical morning Branch and 1 tablet in the evening. blood sugar Yes [id number] Check U nivers diagnostic 5-18 blood ity of strip 00:00: sugar 2 [place] 00 times a Medical day. Branch E11.9. Brand per insurance. Uses ACCU-CHEK machine Lancets Yes [id number] Check Unive rs Misc 5-18 blood ity of 00:00: sugar 2 [place] 00 times a Medical day. Branch E11.9. Brand per insurance. amiodarone Yes [id number] 200mg Take 1 [facility] 200 mg 5-18 tablet by ity of tablet 00:00: mouth in [place] 00 the Medical morning. Branch apixaban 5 0 Yes 5mg Take 1 Unive rs mg tablet 5-18 tablet by ity o f 00:00: mouth in [place] 00 the Medical morning Branch and 1 tablet in the evening. Indication s: ATRIAL FIBRILLATI ON atorvastati Yes [id number] 40mg Take 1 [facility] n 40 mg 5-18 tablet by ity of tablet 00:00: mouth at [place] 00 bedtime. Medical Branch lisinopriL Yes [id number] 2.5mg Take 1 [facility] 2.5 mg 5-18 tablet by ity of tablet 00:00: mouth in [place] 00 the Medical morning. Branch metoprolol Yes [id number] 25mg Take 1 U nivers tartrate 25 5-18 tablet by ity of mg tablet 00:00: mouth in [facility] the Medical morning Branch and 1 tablet in the evening. atorvastati 2022- No [id number] 40mg Take 1 [facility] n 40 mg 5-18 08-18 tablet by ity of tablet 00:00: 00:00 mouth at [place] 00 :00 bedtime. Medical Branch lisinopriL 2022-2022- No [id number] 2.5mg Take 1 [facility] 2.5 mg 5-18 08-18 tablet by ity of tablet 00:00: 00:00 mouth in [place] 00 :00 the Medical morning. Branch metoprolol 2022- No [id number] 25mg Take 1 Univers tartrate 25 5-18 08-18 tablet by it y of mg tablet 00:00: 00:00 mouth in [place] as 00 :00 the Medical morning Branch and 1 tablet in the evening. atorvastati 2022-2022- No [id number] 40mg Take 1 Univers n 40 mg 09-05-18 tablet by ity of tablet 00:00: 00:00 mouth at [place] 00 :00 bedtime. Medical Branch lisinopriL 2022- No [id number] 2.5mg Take 1 Univers 2.5 mg 09-05-18 tablet by ity of tablet 00:00: 00:00 mouth in [place] 00 :00 the Medical morning. Branch metoprolol 2022-2022- No [id number] 25mg Take 1 Univers tartrate 25 09-05-18 tablet by it y of mg tablet 00:00: 00:00 mouth in [facility] as 00 :00 the Medical morning Branch and 1 tablet in the evening. amiodarone 2022-2022- No [id number] 200mg Take 1 Univers 200 mg -05 11-19 tablet by ity of tablet 00:00: 00:00 mouth in [place] 00 :00 the Medical morning. Branch apixaban 5 2022- No 5mg Take 1 Univ ers mg tablet 09-05-19 tablet by ity of 00:00: 00:00 mouth in [place] 00 :00 the Medical morning Branch and 1 tablet in the evening. Indication s: ATRIAL FIBRILLATI ON amiodarone 2022-2022- No [id number] 200mg Take 1 Univers 200 mg -05 11-19 tablet by ity of tablet 00:00: 00:00 mouth in [place] 00 :00 the Medical morning. Branch apixaban 5 2022- No 5mg Take 1 Univ ers mg tablet 09-05-19 tablet by ity of 00:00: 00:00 mouth in [place] 00 :00 the Medical morning Branch and 1 tablet in the evening. Indication s: ATRIAL FIBRILLATI ON amiodarone 2022-2022- No [id number] 200mg Take 1 [facility] 200 mg 5-18 -19 tablet by ity of tablet 00:00: 00:00 mouth in [place] 00 :00 the Medical morning. Branch apixaban 5 2022- No 5mg Take 1 Univ ers mg tablet -05 11-19 tablet by ity of 00:00: 00:00 mouth in [place] 00 :00 the Medical morning Branch and 1 tablet in the evening. Indication s: ATRIAL FIBRILLATI ON amiodarone 2022- No [id number] 200mg Take 1 [facility] 200 mg 09-05- tablet by ity of tablet 00:00: 00:00 mouth in [place] 00 :00 the Medical morning. Branch apixaban 5 2022- No 5mg Take 1 Univ ers mg tablet 09-05 tablet by ity of 00:00: 00:00 mouth in [place] 00 :00 the Medical morning Branch and 1 tablet in the evening. Indication s: ATRIAL FIBRILLATI ON blood sugar 2022- No [id number] Check Univers diagnostic 09-05 blood ity of strip 00:00: 00:00 sugar 2 [place] 00 :00 times a Medical day. Branch E11.9. Brand per insurance. Uses ACCU-CHEK machine divalproex 2022- No [id number] 250mg Take 1 Univers ER 250 mg 5-18 05-25 tablet by ity of 24 hr 00:00: 00:00 mouth [place] tablet 00 :00 every 24 Medical ([facility] Branch ur) hours. gabapentin 2022-2022- No [id number] 300mg Take 1 Univers 300 mg 5-18 05-25 capsule by ity of capsule 00:00: 00:00 mouth in [place] 00 :00 the Medical morning Branch and 1 capsule at noon and 1 capsule in the evening. divalproex 2022-2022- No [id number] 250mg Take 1 Univers ER 250 mg 5-18 05-25 tablet by ity of 24 hr 00:00: 00:00 mouth [place] tablet 00 :00 every 24 Medical ([facility] Branch ur) hours. gabapentin 2022-2022- No [id number] 300mg Take 1 Univers 300 mg 5-18 05-25 capsule by ity of capsule 00:00: 00:00 mouth in [place] 00 :00 the Medical morning Branch and 1 capsule at noon and 1 capsule in the evening. divalproex 2022-0 2022- No [id number] 250mg Take 1 Univers ER 250 mg 5-18 05-25 tablet by ity of 24 hr 00:00: 00:00 mouth [place] tablet 00 :00 every 24 Medical (twenty-fo Branch ur) hours. gabapentin 2022-0 2022- No [id number] 300mg Take 1 [facility] 300 mg 5-18 05-25 capsule by ity of capsule 00:00: 00:00 mouth in [place] 00 :00 the Medical morning Branch and 1 capsule at noon and 1 capsule in the evening. divalproex 2022-0 2022- No [id number] 250mg Take 1 Univers ER 250 mg 5-18 05-25 tablet by ity of 24 hr 00:00: 00:00 mouth [place] tablet 00 :00 every 24 Medical (twenty-fo Branch ur) hours. gabapentin 2022-0 2022- No [id number] 300mg Take 1 [facility] 300 mg 5-18 05-25 capsule by ity of capsule 00:00: 00:00 mouth in [place] 00 :00 the Medical morning Branch and [...] Medical 1,000 dose, On Branch mg/100 mL [facility] RTU 08/14/22 at 0215, Administer over 15 Minutes, 100 mL NaCl 0.9% 2022- No 500mL at 999 Univ ers (NS) bolus 08-14 mL/hr, 500 it y of infusion 05:30: 07:00 mL, IV [place] 500 mL 00 :00 Infusion, Medical ONCE, 1 Branch dose, On 08/14/22 at 0030, STAT divalproex 2022-0 Yes [id number] 250mg Take 1 Univers ER 250 mg -26 tablet by ity o f 24 hr 00:00: mouth [place] tablet 00 every 24 Medical (twenty-fo Branch ur) hours. divalproex 2022-0 Yes [id number] 250mg Take 1 Univers ER 250 mg 4-26 tablet by ity o f 24 hr 00:00: mouth [place] tablet 00 every 24 Medical (twenty-fo Branch ur) hours. divalproex 2023-0 Yes [id number] 250mg Take 1 Univers ER 250 mg 4-26 tablet by ity o f 24 hr 00:00: mouth [place] tablet 00 every 24 Medical (twenty-fo Branch ur) hours. divalproex 2023-0 Yes [id number] 250mg Take 1 Univers ER 250 mg 4-26 tablet by ity o f 24 hr 00:00: mouth [place] tablet 00 every 24 Medical (twenty-fo Branch ur) hours. divalproex 2023-0 Yes [id number] 250mg Take 1 [facility] ER 250 mg 4-26 tablet by ity o f 24 hr 00:00: mouth [place] tablet 00 every 24 Medical (twenty-fo Branch ur) hours. divalproex 2023-0 Yes [id number] 250mg Take 1 Univers ER 250 mg 4-26 tablet by ity o f 24 hr 00:00: mouth [place] tablet 00 every 24 Medical (twenty-fo Branch ur) hours. divalproex 2023-0 Yes [id number] 250mg Take 1 Univers ER 250 mg 4-26 tablet by ity o f 24 hr 00:00: mouth [place] tablet 00 every 24 Medical (twenty-fo Branch ur) hours. divalproex 2023-0 Yes [id number] 250mg Take 1 [facility] ER 250 mg 4-26 tablet by ity o f 24 hr 00:00: mouth [place] tablet 00 every 24 Medical (twenty-fo Branch ur) hours. divalproex 2023-0 Yes [id number] 250mg Take 1 [facility] ER 250 mg 4-26 tablet by ity o f 24 hr 00:00: mouth [place] tablet 00 every 24 Medical (twenty-fo Branch ur) hours. divalproex 2023-0 Yes [id number] 250mg Take 1 Univers ER 250 mg 4-26 tablet by ity o f 24 hr 00:00: mouth [place] tablet 00 every 24 Medical (twenty-fo Branch ur) hours. divalproex 2023-0 Yes [id number] 250mg Take 1 Univers ER 250 mg 4-26 tablet by ity o f 24 hr 00:00: mouth [place] tablet 00 every 24 Medical (twenty- Branch ur) hours. divalproex 3-0 Yes [id number] 250mg Take 1 Univers ER 250 mg 4-26 tablet by ity o f 24 hr 00:00: mouth [place] tablet 00 every 24 Medical (twenty-fo Branch ur) hours. divalproex 2022-0 2023- No [id number] 250mg Take 1 Univers ER 250 mg 4-26 05-18 tablet by ity of 24 hr 00:00: 00:00 mouth [place] tablet 00 :00 every 24 Medical (twenty- Branch ur) hours. lancing Yes 1{each} Take 1 Unive rs device/lanc 4-17 Each in ity [facility] ets 14:20: the [place] (ACCU-CHEK 29 morning Medica l SOFT DEV and 1 Each Branc h LANCETS at noon MISC) and 1 Each in the evening. lancing Yes 1{each} Take 1 Unive rs device/lanc 4-17 Each in [facility] ets 14:20: the [place] (ACCU-CHEK 29 morning Medica l SOFT DEV and 1 Each Branc h LANCETS at noon MISC) and 1 Each in the evening. lancing Yes 1{each} Take 1 Unive rs device/lanc 4-17 Each in [facility] ets 14:20: the [place] (ACCU-CHEK 29 morning Medica l SOFT DEV and 1 Each Branc h LANCETS at noon MISC) and 1 Each in the evening. lancing Yes 1{each} Take [facility] [place] (ACCU-CHEK 29 morning Medica l SOFT DEV and 1 Each Branc h LANCETS at noon MISC) and 1 Each in the evening. lancing Yes 1{each} Take 1 [facility] 4-[facility] the [place] (ACCU-CHEK 29 morning Medica l SOFT DEV and 1 Each Branc h LANCETS at noon MISC) and 1 Each in the evening. lancing Yes 1{each} Take 1 Unive rs device/lanc 4-17 Each in ity [facility] ets 14:20: the [place] (ACCU-CHEK 29 morning Medica l SOFT DEV and 1 Each Branc h LANCETS at noon MISC) and 1 Each in the evening. lancing Yes 1{each} Take 1 Unive rs device/lanc 4-17 Each in [facility] ets 14:20: the [place] (ACCU-CHEK 29 morning Medica l SOFT DEV and 1 Each Branc h LANCETS at noon MISC) and 1 Each in the evening. lancing Yes 1{each} Take 1 Unive rs device/lanc 4-17 Each in [facility] ets 14:20: the [place] (ACCU-CHEK 29 morning Medica l SOFT DEV and 1 Each Branc h LANCETS at noon MISC) and 1 Each in the evening. lancing Yes 1{each} Take 1 Unive rs device/lanc 4-17 Each in [facility] ets 14:20: the [place] (ACCU-CHEK 29 morning Medica l SOFT DEV and 1 Each Branc h LANCETS at noon MISC) and 1 Each in the evening. lancing Yes 1{each} Take 1 Unive rs device/lanc 4-17 Each in [facility] ets 14:20: the [place] (ACCU-CHEK 29 morning Medica l SOFT DEV and 1 Each Branc h LANCETS at noon MISC) and 1 Each in the evening. lancing Yes 1{each} Take 1 Unive rs device/lanc 4-17 Each in [facility] ets 14:20: the [place] (ACCU-CHEK 29 morning Medica l SOFT DEV and 1 Each Branc h LANCETS at noon MISC) and 1 Each in the evening. lancing Yes 1{each} Take 1 Unive rs device/lanc 4-17 Each in [facility] ets 14:20: the [place] (ACCU-CHEK 29 morning Medica l SOFT DEV and 1 Each Branc h LANCETS at noon MISC) and 1 Each in the evening. lancing Yes 1{each} Take 1 [facility] the [place] (ACCU-CHEK 29 morning [...] Each in ity o ets 14:20: the [place] (ACCU-CHEK 29 morning Medica l SOFT DEV and 1 Each Branc h LANCETS at noon MISC) and 1 Each in the evening. lancing Yes 1{each} Take 1 Unive rs device/lanc 4-17 Each in ity o ets 14:20: the [place] (ACCU-CHEK 29 morning Medica l SOFT DEV and 1 Each Branc h LANCETS at noon MISC) and 1 Each in the evening. lancing Yes 1{each} Take 1 Unive rs device/lanc 4-17 Each in ity o ets 14:20: the [place] (ACCU-CHEK 29 morning Medica l SOFT DEV [...] Each in ity o ets 14:20: the [place] (ACCU-CHEK 29 morning Medica l SOFT DEV and 1 Each Branc h LANCETS at noon MISC) and 1 Each in the evening. lancing 2022-0 Yes 1{each} Take [facility] [place] (ACCU-CHEK 29 morning Medica l SOFT DEV and 1 Each Branc h LANCETS at noon MISC) and 1 Each in the evening. lancing 2022-0 Yes 1{each} Take 1 Unive rs device/lanc 4-17 Each in [facility] ets 14:20: the [place] (ACCU-CHEK 29 morning Medica l SOFT DEV and 1 Each Branc h LANCETS at noon MIS) and 1 Each in the evening. lancing 2022-0 Yes 1{each} Take 1 Unive rs device/lanc 4-17 Each in [facility] 14:20: the [place] (ACCU-CHEK 29 morning Medica l SOFT DEV and 1 Each Branc h LANCETS at noon MIS) and 1 Each in the evening. lisinopriL 2022- No 2.5mg Take 1 Uni vers 2.5 mg 08-05-17 tablet by ity of tablet 14:01: 00:00 mouth in [place] 18 :00 the Medical morning. Branch gabapentin 2022-2022- No 300mg Take 1 Uni vers 300 mg -05 08-17 capsule by ity of capsule 14:01: 00:00 mouth in [place] 18 :00 the Medical morning. Branch atorvastati 2022-2022- No 40mg Take 1 Uni vers n 40 mg -05 08-17 tablet by ity of tablet 14:01: 00:00 mouth at [place] 18 :00 bedtime. Medical Branch apixaban 5 2022- No 5mg Take 1 Univ ers mg tablet 08-05-17 tablet by ity of 14:01: 00:00 mouth [place] 18 :00 every 12 Medical (twelve) Branch hours. metoprolol 2022-2022- No 25mg Take 1 Univ ers tartrate 25 -05 08-17 tablet by it y of mg tablet 14:01: 00:00 mouth in [facility] as 18 :00 the Medical morning Branch and 1 tablet in the evening. lisinopriL 2022-2022- No 2.5mg [...] tablet by it y of mg tablet 14:: 00:00 mouth in [facility] as 18 :00 the Medical [...] ity of tablet 14:01: 00:00 mouth at [place] 18 :00 bedtime. Medical Branch apixaban 5 2022-0 3- No 5mg Take 1 Univ ers mg tablet 4-17 04-17 tablet by ity of 14:01: 00:00 mouth [place] 18 :00 every 12 Medical (twelve) Branch hours. metoprolol 3-0 3- No 25mg Take 1 Univ ers tartrate 25 4-17 04-17 tablet by it y of mg tablet 14:01: 00:00 mouth in [facility] as 18 :00 the Medical morning Branch and 1 tablet in the evening. SERTraline 2022- No 25mg Take 1 Univ ers 25 mg 4-17 04-17 tablet by ity of tablet 14:01: 00:00 mouth in [place] 12 :00 the Medical morning. Branch SERTraline 2022- No 25mg Take 1 Univ ers 25 mg 4-17 04-17 tablet by ity of tablet 14:01: 00:00 mouth in [place] 12 :00 the Medical morning. Branch SERTraline 2022- No 25mg Take 1 Univ ers 25 mg 4-17 04-17 tablet by ity of tablet 14:01: 00:00 mouth in [place] 12 :00 the Medical morning. Branch Miscellaneo [...] us Medical 4-17 prosthetic ity of Supply [facility] 13:42: s - BKA [place] 59 Medical Branch insulin NPH 3-0 Yes inject [...] skin. Abdi (HUMULIN N 22 Unsure of [facility] dilshad PEN NM) what kind Branch of humulin insulin he takes SEMGLEE,INS 2022-0 Yes inject Univ ers ULIN 4-17 under the ity of GLARGINE-YF 13:33: skin. As AURELIO Quintanilla 22 directed Medical Branch insulin NPH 2022-0 Yes inject Univ ers human 4-17 under the ity of isophane 13:33: skin. Abdi (HUMULIN N 22 Unsure of [facility] dilshad PEN NM) what kind Branch of humulin insulin he takes SEMGLEE,INS 2022-0 Yes inject Univ ers ULIN 4-17 under the ity of GLARGINE-YF 13:33: skin. As AURELIO [place] 22 directed Medical Branch insulin NPH 2022-0 Yes inject Univ ers human 4-17 under the ity of isophane 13:33: skin. Abdi (HUMULIN N 22 Unsure of [facility] dilshad [facility]) what kind Branch of humulin insulin he takes SEMGLEE,INS 3-0 Yes inject Univ ers ULIN 4-17 under the ity of GLARGINE-YF 13:33: skin. As AURELIO [place] 22 directed Medical Branch insulin NPH 2022-0 Yes inject Univ ers human 4-17 under the ity of isophane 13:33: skin. Abdi (HUMULIN N 22 Unsure of [facility] dilshad PEN NM) what kind Branch of humulin insulin he takes SEMGLEE,INS 3-0 Yes inject Univ ers ULIN 4-17 under the ity of GLARGINE-YF 13:33: skin. As AURELIO [place] 22 directed Medical Branch insulin NPH 2022-0 Yes inject Univ ers human 4-17 under the ity of isophane 13:33: skin. Abdi (HUMULIN N 22 Unsure of [facility] dilshad PEN NM) what kind Branch of humulin insulin he takes SEMGLEE,INS 2023-0 Yes inject Univ ers ULIN 4-17 under the ity of GLARGINE-YF 13:33: skin. As AURELIO [place] 22 directed Medical Branch insulin NPH 2022-0 Yes inject Univ ers human 4-17 under the ity of isophane 13:33: skin. Abdi (HUMULIN N 22 Unsure of Medi dilshad PEN NM) what kind Branch of humulin insulin he takes SEMGLEE,INS 2023-0 Yes inject Univ ers ULIN 4-17 under the ity of GLARGINE-YF 13:33: skin. As AURELIO [place] 22 directed Medical Branch insulin NPH 2022-0 Yes inject Univ ers human 4-17 under the ity of isophane 13:33: skin. Abdi (HUMULIN N 22 Unsure of Medi dilshad PEN NM) what kind Branch of humulin insulin he takes SEMGLEE,INS 2023-0 Yes inject Univ ers ULIN 4-17 under the ity of GLARGINE-YF 13:33: skin. As AURELIO [place] 22 directed Medical Branch insulin NPH 2022-0 Yes inject Univ ers human 4-17 under the ity of isophane 13:33: skin. Abdi (HUMULIN N 22 Unsure of Medi dilshad PEN NM) what kind Branch of humulin insulin he takes SEMGLEE,INS 2023-0 Yes inject Univ ers ULIN 4-17 under the ity of GLARGINE-YF 13:33: skin. As AURELIO [place] 22 directed Medical Branch insulin NPH 2022-0 Yes inject Univ ers human 4-17 under the ity of isophane 13:33: skin. Abdi (HUMULIN N 22 Unsure of Medi dilshad PEN NM) what kind Branch of humulin insulin he takes SEMGLEE,INS 2023-0 Yes inject Univ ers ULIN 4-17 under the ity of GLARGINE-YF 13:33: skin. As AURELIO [place] 22 directed Medical Branch insulin NPH 3-0 Yes inject Univ ers human 4-17 under the ity of isophane 13:33: skin. Abdi (HUMULIN N 22 Unsure of Medi dilshad PEN NM) what kind Branch of humulin insulin he takes SEMGLEE,INS 2023-0 Yes inject Univ ers ULIN 4-17 under the ity of GLARGINE-YF 13:33: skin. As AURELIO [place] 22 directed Medical Branch insulin NPH 3-0 Yes inject Univ ers human 4-17 under the ity of isophane 13:33: skin. Abdi (HUMULIN N 22 Unsure of [facility]) what kind Branch of humulin insulin he takes SEMGLEE,INS 2023-0 Yes inject Univ ers ULIN 4-17 under the ity of GLARGINE-YF 13:33: skin. As AURELIO [place] 22 directed Medical Branch insulin NPH 2022-0 Yes inject Univ ers human 4-17 under the ity of isophane 13:33: skin. Abdi (HUMULIN N 22 Unsure of [facility] dilshad PEN NM) what kind Branch of humulin insulin he takes SEMGLEE,INS 2023-0 Yes inject Univ ers ULIN 4-17 under the ity of GLARGINE-YF 13:33: skin. As AURELIO [place] 22 directed Medical Branch insulin NPH 2022-0 Yes inject Univ ers human 4-17 under the ity of isophane 13:33: skin. Abdi (HUMULIN N 22 Unsure of [facility]) what kind Branch of humulin insulin he takes SEMGLEE,INS 2023-0 Yes inject Univ ers ULIN 4-17 under the ity of GLARGINE-YF 13:33: skin. As AURELIO [place] 22 directed Medical Branch insulin NPH 2022-0 Yes inject Univ ers human 4-17 under the ity of isophane 13:33: skin. Abdi (HUMULIN N 22 Unsure of [facility]) what kind Branch of humulin insulin he takes SEMGLEE,INS 2023-0 Yes inject Univ ers ULIN 4-17 under the ity of GLARGINE-YF 13:33: skin. As AURELIO [place] 22 directed Medical Branch insulin NPH 3-0 Yes inject Univ ers human 4-17 under the ity of isophane 13:33: skin. Abdi (HUMULIN N 22 Unsure of [facility] dilshad PEN NM) what kind Branch of humulin insulin he takes SEMGLEE,INS 2023-0 Yes inject Univ ers ULIN 4-17 under the ity of GLARGINE-YF 13:33: skin. As AURELIO [place] 22 directed Medical Branch insulin NPH 3-0 Yes inject Univ ers human 4-17 under the ity of isophane 13:33: skin. Abdi (HUMULIN N 22 Unsure of [facility]) what kind Branch of humulin insulin he takes SEMGLEE,INS 2023-0 Yes inject Univ ers ULIN 4-17 under the ity of GLARGINE-YF 13:33: skin. As AURELIO [place] 22 directed Medical Branch insulin NPH 2022-0 Yes inject Univ ers human 4-17 under the ity of isophane 13:33: skin. Abdi (HUMULIN N 22 Unsure of Medi dilshad PEN NM) what kind Branch of humulin insulin he takes SEMGLEE,INS 2023-0 Yes inject Univ ers ULIN 4-17 under the ity of GLARGINE-YF 13:33: skin. As AURELIO [place] 22 directed Medical Branch insulin NPH 2022-0 Yes inject Univ ers human 4-17 under the ity of isophane 13:33: skin. Abdi (HUMULIN N 22 Unsure of [facility] dilshad PEN NM) what kind Branch of humulin insulin he takes SEMGLEE,INS 2023-0 Yes inject Univ ers ULIN 4-17 under the ity of GLARGINE-YF 13:33: skin. As AURELIO [place] 22 directed Medical Branch insulin NPH 2022-0 Yes inject Univ ers human 4-17 under the ity of isophane 13:33: skin. Abdi (HUMULIN N 22 Unsure of [facility] dilshad PEN NM) what kind Branch of humulin insulin he takes SEMGLEE,INS 2023-0 Yes inject Univ ers ULIN 4-17 under the ity of GLARGINE-YF 13:33: skin. As AURELIO [place] 22 directed Medical Branch insulin NPH 2022-0 Yes inject Univ ers human 4-17 under the ity of isophane 13:33: skin. Abdi (HUMULIN N 22 Unsure of Medi dilshad PEN NM) what kind Branch of humulin insulin he takes SEMGLEE,INS 2023-0 Yes inject Univ ers ULIN 4-17 under the ity of GLARGINE-YF 13:33: skin. As AURELIO [place] 22 directed Medical Branch insulin NPH 3-0 Yes inject Univ ers human 4-17 under the ity of isophane 13:33: skin. Abdi (HUMULIN N 22 Unsure of [facility] dilshad PEN NM) what kind Branch of humulin insulin he takes SEMGLEE,INS 2023-0 Yes inject Univ ers ULIN 4-17 under the ity of GLARGINE-YF 13:33: skin. As AURELIO [place] 22 directed Medical Branch insulin NPH 2022-0 Yes inject Univ ers human 4-17 under the ity of isophane 13:33: skin. Abdi (HUMULIN N 22 Unsure of Medi dilshad PEN NM) what kind Branch of humulin insulin he takes SEMGLEE,INS 2023-0 Yes inject Univ ers ULIN 4-17 under the ity of GLARGINE-YF 13:33: skin. As AURELIO Quintanilla 22 directed Medical Branch insulin NPH 2022-0 Yes inject [facility] human 4-17 under the ity of isophane 13:33: skin. Abdi (HUMULIN N 22 Unsure of Medi dilshad PEN NM) what kind Branch of humulin insulin he takes SEMGLEE,INS 3-0 Yes inject [facility] ULIN 4-17 under the ity of GLARGINE-YF 13:33: skin. As AURELIO Quintanilla 22 directed Medical Branch insulin NPH 2022-0 Yes inject [facility] human 4-17 under the ity of isophane 13:33: skin. Abdi (HUMULIN N 22 Unsure of Medi dilshad PEN NM) what kind Branch of humulin insulin he takes SEMGLEE,INS 3-0 Yes inject [facility] ULIN 4-17 under the ity of GLARGINE-YF 13:33: skin. As AURELIO Quintanilla 22 directed Medical Branch insulin NPH 2022-0 Yes inject [facility] human 4-17 under the ity of isophane 13:33: skin. Abdi (HUMULIN N 22 Unsure of Medi dilshad PEN NM) what kind Branch of humulin insulin he takes SEMGLEE,INS 2023-0 Yes inject [facility] ULIN 4-17 under the ity of GLARGINE-YF 13:33: skin. As AURELIO Quintanilla 22 directed Medical Branch insulin NPH 2022-0 Yes inject [facility] human 4-17 under the ity of isophane 13:33: skin. Abdi (HUMULIN N 22 Unsure of Medi dilshad PEN NM) what kind Branch of humulin insulin he takes SEMGLEE,INS 2023-0 Yes inject [facility] ULIN 4-17 under the ity of GLARGINE-YF 13:33: skin. As Rolando crawley [place], [place] 22 directed Medical Branch insulin NPH 2023-0 Yes inject [facility] human 4-17 under the ity of isophane 13:33: skin. Abdi (HUMULIN N 22 Unsure of Medi dilshad PEN NM) what kind Branch of humulin insulin he takes insulin NPH 2023-0 Yes inject [facility] human 4-17 under the ity of isophane 13:33: skin. Abdi (HUMULIN N 22 Unsure of Medi dilshad PEN NM) what kind Branch of humulin insulin he takes insulin NPH 2023-0 Yes inject [facility] human 4-17 under the ity of isophane 13:33: skin. Abdi (HUMULIN N 22 Unsure of Medi dilshad PEN NM) what kind Branch of humulin insulin he takes insulin NPH 2023-0 Yes inject [facility] human 4-17 under the ity of isophane 13:33: skin. Abdi (HUMULIN N 22 Unsure of Medi dilshad PEN NM) what kind Branch of humulin insulin he takes insulin NPH 2023-0 Yes inject [facility] human 4-17 under the ity of isophane 13:33: skin. Abdi (HUMULIN N 22 Unsure of Medi dilshad PEN NM) what kind Branch of humulin insulin he takes insulin NPH 2023-0 Yes inject [facility] human 4-17 under the ity of isophane 13:33: skin. Abdi (HUMULIN N 22 Unsure of Medi dilshad PEN NM) what kind Branch of humulin insulin he takes insulin NPH 2023-0 Yes inject [facility] human 4-17 under the ity of isophane 13:33: skin. Abdi (HUMULIN N 22 Unsure of Medi dilshad PEN NM) what kind Branch of humulin insulin he takes insulin NPH 2023-0 Yes inject [facility] human 4-17 under the ity of isophane 13:33: skin. Abdi (HUMULIN N 22 Unsure of Medi dilshad PEN NM) what kind Branch of humulin insulin he takes cephALEXin 2023-0 Yes 500mg Take 1 [facility] 500 mg 4-17 capsule by ity of capsule 13:23: mouth 4 Abdi 56 (four) Medical times Branch daily. cephALEXin 2023-0 Yes 500mg Take 1 [facility] 500 mg 4-17 capsule by ity of capsule 13:23: mouth 4 [place] 56 (four) Medical times Branch daily. cephALEXin 2023-0 Yes 500mg Take 1 [facility] ers 500 mg 4-17 capsule by ity of capsule 13:23: mouth 4 [place] 56 (four) Medical times Branch daily. cephALEXin 2023-0 Yes 500mg Take 1 [facility] ers 500 mg 4-17 capsule by ity of capsule 13:23: mouth 4 [place] 56 (four) Medical times Branch daily. cephALEXin 2023-0 Yes 500mg Take 1 [facility] ers 500 mg 4-17 capsule by ity of capsule 13:23: mouth 4 [place] 56 (four) Medical times Branch daily. cephALEXin 2023-0 Yes 500mg Take 1 [facility] ers 500 mg 4-17 capsule by ity of capsule 13:23: mouth 4 [place] 56 (four) Medical times Branch daily. cephALEXin 2023-0 Yes 500mg Take 1 [facility] 500 mg 4-17 capsule by ity of capsule 13:23: mouth 4 [place] [id number] (four) Medical times Branch daily. cephALEXin 2023-0 Yes 500mg Take 1 [facility] 500 mg 4-17 capsule by ity of capsule 13:23: mouth 4 [place] [address] (four) Medical times Branch daily. cephALEXin 2023-0 Yes 500mg Take 1 [facility] ers 500 mg 4-17 capsule by ity of capsule 13:23: mouth 4 [place] [address] (four) Medical times Branch daily. cephALEXin 2023-0 Yes 500mg Take 1 [facility] 500 mg 4-17 capsule by ity of capsule 13:23: mouth 4 [place] [address] (four) Medical times Branch daily. cephALEXin 2023-0 Yes 500mg Take 1 [facility] ers 500 mg 4-17 capsule by ity of capsule 13:23: mouth 4 [place] [address] (four) Medical times Branch daily. cephALEXin 2023-0 Yes 500mg Take 1 [facility] ers 500 mg 4-17 capsule by ity of capsule 13:23: mouth 4 [place] 56 (four) Medical times Branch daily. cephALEXin 2023-0 Yes 500mg Take 1 [facility] ers 500 mg 4-17 capsule by ity of capsule 13:23: mouth 4 [place] 56 (four) Medical times Branch daily. cephALEXin 2023-0 Yes 500mg Take 1 [facility] ers 500 mg 4-17 capsule by ity of capsule 13:23: mouth 4 [place] [id number] (four) Medical times Branch daily. cephALEXin 2023-0 Yes 500mg Take 1 [facility] ers 500 mg 4-17 capsule by ity of capsule 13:23: mouth 4 [place] [id number] ([facility]) Medical times Branch daily. cephALEXin 2023-0 Yes 500mg Take 1 [facility] ers 500 mg 4-17 capsule by ity of capsule 13:23: mouth 4 [place] [id number] ([facility]) Medical times Branch daily. cephALEXin 2023-0 Yes 500mg Take 1 [facility] ers 500 mg 4-17 capsule by ity of capsule 13:23: mouth 4 [place] [id number] ([facility]) Medical times Branch daily. cephALEXin 2023-0 Yes 500mg Take 1 [facility] ers 500 mg 4-17 capsule by ity of capsule 13:23: mouth 4 [place] [id number] ([facility]) Medical times Branch daily. cephALEXin 2023-0 Yes 500mg Take 1 [facility] ers 500 mg 4-17 capsule by ity of capsule 13:23: mouth 4 [place] [id number] ([facility]) Medical times Branch daily. cephALEXin 2023-0 Yes 500mg Take 1 [facility] ers 500 mg 4-17 capsule by ity of capsule 13:23: mouth 4 [place] [address] ([facility]) Medical times Branch daily. cephALEXin 2023-0 Yes 500mg Take 1 [facility] ers 500 mg 4-17 capsule by ity of capsule 13:23: mouth 4 [place] [id number] ([facility]) Medical times Branch daily. cephALEXin 2023-0 Yes 500mg Take 1 [facility] ers 500 mg 4-17 capsule by ity of capsule 13:23: mouth 4 [place] [id number] ([facility]) Medical times Branch daily. cephALEXin 2023-0 Yes 500mg Take 1 [facility] ers 500 mg 4-17 capsule by ity of capsule 13:23: mouth 4 [place] [id number] ([facility]) Medical times Branch daily. gabapentin 2023-0 Yes [id number] 300mg Take 1 [facility] 300 mg 4-17 capsule by ity of capsule 00:00: mouth in [place] [address] the Medical morning Branch and 1 capsule at noon and 1 capsule in the evening. amiodarone 2023-0 Yes [id number] 200mg Take 1 [facility] 200 mg 4-17 tablet by ity of tablet 00:00: mouth in [place] [address] the Medical morning. Branch apixaban 5 2023-0 Yes 5mg Take 1 Unive rs mg tablet 4-17 tablet by ity o f 00:00: mouth in [place] [address] the Medical morning Branch and 1 tablet in the evening. Indication s: ATRIAL FIBRILLATI ON atorvastati 2023-0 Yes [id number] 40mg Take 1 [facility] n 40 mg 4-17 tablet by ity of tablet 00:00: mouth at [place] [address] bedtime. Medical Branch SERTraline Yes [id number] 100mg Take 1 [facility] 100 mg 4-17 tablet by ity of tablet 00:00: mouth in [place] the morning. Branch lisinopriL Yes [id number] 2.5mg Take 1 [facility] 2.5 mg 4-17 tablet by ity of tablet 00:00: mouth in [place] the morning. Branch metoprolol Yes [id number] 25mg Take 1 U nivers tartrate 25 4-17 tablet by ity of mg tablet 00:00: mouth in [facility] the morning Branch and 1 tablet in the evening. blood sugar Yes [id number] Check U nivers diagnostic 4-17 blood ity of strip 00:00: sugar 2 [place] 00 times a Medical day. Branch E11.9. Brand per insurance. Uses ACCU-CHEK machine Lancets Yes [id number] Check Unive rs Misc 4-17 blood ity of 00:00: sugar 2 [place] times a Medical day. Branch E11.9. Brand per insurance. gabapentin Yes [id number] 300mg Take 1 [facility] 300 mg 4-17 capsule by ity of capsule 00:00: mouth in [place] the morning Branch and 1 capsule at noon and 1 capsule in the evening. amiodarone Yes [id number] 200mg Take 1 [facility] 200 mg 4-17 tablet by ity of tablet 00:00: mouth in [place] the morning. Branch apixaban 5 Yes 5mg Take 1 Un[facility] rs mg tablet 4-17 tablet by ity o f 00:00: mouth in [place] the morning Branch and 1 tablet in the evening. Indication s: ATRIAL FIBRILLATI ON atorvastati Yes [id number] 40mg Take 1 [facility] n 40 mg 4-17 tablet by ity of tablet 00:00: mouth at [place] [address] bedtime. Medical Branch SERTraline Yes [id number] 100mg Take 1 [facility] 100 mg 4-17 tablet by ity of tablet 00:00: mouth in [place] 00 the morning. Branch lisinopriL Yes [id number] 2.5mg Take 1 [facility] 2.5 mg 4-17 tablet by ity of tablet 00:00: mouth in [place] the morning. Branch metoprolol Yes [id number] 25mg Take 1 U nivers tartrate 25 4-17 tablet by ity of mg tablet 00:00: mouth in [facility] 00 the morning Branch and 1 tablet in the evening. blood sugar 0 Yes [id number] Check U nivers diagnostic 4-17 blood ity of strip 00:00: sugar 2 [place] times a Medical day. Branch E11.9. Brand per insurance. Uses ACCU-CHEK machine Lancets Yes [id number] Check Unive rs Misc 4-17 blood ity of 00:00: sugar 2 [place] times a Medical day. Branch E11.9. Brand per insurance. gabapentin Yes [id number] 300mg Take 1 Univers 300 mg 4-17 capsule by ity of capsule 00:00: mouth in [place] the morning Branch and 1 capsule at noon and 1 capsule in the evening. amiodarone Yes [id number] 200mg Take 1 [facility] 200 mg 4-17 tablet by ity of tablet 00:00: mouth in [place] the morning. Branch apixaban 5 Yes 5mg Take 1 Unive rs mg tablet 4-17 tablet by ity o f 00:00: mouth in [place] the morning Branch and 1 tablet in the evening. Indication s: ATRIAL FIBRILLATI ON atorvastati 2022-0 Yes [id number] 40mg Take 1 Univers n 40 mg 4-17 tablet by ity of tablet 00:00: mouth at [place] [address] bedtime. Medical Branch SERTraline 0 Yes [id number] 100mg Take 1 [facility] 100 mg 4-17 tablet by ity of tablet 00:00: mouth in [place] the morning. Branch lisinopriL 0 Yes [id number] 2.5mg Take 1 Univers 2.5 mg 4-17 tablet by ity of tablet 00:00: mouth in [place] [address] the morning. Branch metoprolol 2022-0 Yes [id number] 25mg Take 1 U nivers tartrate 25 4-17 tablet by ity of mg tablet 00:00: mouth in [facility] s the Medical morning Branch and 1 tablet in the evening. blood sugar 0 Yes [id number] Check U nivers diagnostic 4-17 blood ity of strip 00:00: sugar 2 [place] 00 times a Medical day. Branch E11.9. Brand per insurance. Uses ACCU-CHEK machine Lancets 0 Yes [id number] Check Unive rs Misc 4-17 blood ity of 00:00: sugar 2 [place] times a Medical day. Branch E11.9. Brand per insurance. gabapentin Yes [id number] 300mg Take 1 Univers 300 mg 4-17 capsule by ity of capsule 00:00: mouth in [place] the morning Branch and 1 capsule at noon and 1 capsule in the evening. amiodarone Yes [id number] 200mg Take 1 [facility] 200 mg 4-17 tablet by ity of tablet 00:00: mouth in [place] the morning. Branch apixaban 5 Yes 5mg Take 1 Unive rs mg tablet 4-17 tablet by ity o f 00:00: mouth in [place] 00 the morning Branch and 1 tablet in the evening. Indication s: ATRIAL FIBRILLATI ON atorvastati Yes [id number] 40mg Take 1 Univers n 40 mg 4-17 tablet by ity of tablet 00:00: mouth at [place] [address] bedtime. Medical Branch SERTraline Yes [id number] 100mg Take 1 [facility] 100 mg 4-17 tablet by ity of tablet 00:00: mouth in [place] the morning. Branch lisinopriL Yes [id number] 2.5mg Take 1 Univers 2.5 mg 4-17 tablet by ity of tablet 00:00: mouth in [place] 00 the Medical morning. Branch metoprolol 0 Yes [id number] 25mg Take 1 U nivers tartrate 25 4-17 tablet by ity of mg tablet 00:00: mouth in [facility] 00 the morning Branch and 1 tablet in the evening. blood sugar 2022-0 Yes [id number] Check U nivers diagnostic 4-17 blood ity of strip 00:00: sugar 2 [place] 00 times a Medical day. Branch E11.9. Brand per insurance. Uses ACCU-CHEK machine Lancets Yes [id number] Check Unive rs Misc 4-17 blood ity of 00:00: sugar 2 [place] 00 times a Medical day. Branch E11.9. Brand per insurance. gabapentin Yes [id number] 300mg Take 1 Univers 300 mg 4-17 capsule by ity of capsule 00:00: mouth in [place] 00 the Medical morning Branch and 1 capsule at noon and 1 capsule in the evening. amiodarone Yes [id number] 200mg Take 1 [facility] 200 mg 4-17 tablet by ity of tablet 00:00: mouth in [place] 00 the morning. Branch apixaban 5 Yes 5mg Take 1 Unive rs mg tablet 4-17 tablet by ity o f 00:00: mouth in [place] the morning Branch and 1 tablet in the evening. Indication s: ATRIAL FIBRILLATI ON atorvastati Yes [id number] 40mg Take 1 Univers n 40 mg 4-17 tablet by ity of tablet 00:00: mouth at [place] [address] bedtime. Medical Branch SERTraline Yes [id number] 100mg Take 1 [facility] 100 mg 4-17 tablet by ity of tablet 00:00: mouth in [place] the morning. Branch lisinopriL Yes [id number] 2.5mg Take 1 Univers 2.5 mg 4-17 tablet by ity of tablet 00:00: mouth in [place] the morning. Branch metoprolol Yes [id number] 25mg Take 1 U nivers tartrate 25 4-17 tablet by ity of mg tablet 00:00: mouth in [facility] the Medical morning Branch and 1 tablet in the evening. blood sugar 0 Yes [id number] Check U nivers diagnostic 4-17 blood ity of strip 00:00: sugar 2 [place] 00 times a Medical day. Branch E11.9. Brand per insurance. Uses ACCU-CHEK machine Lancets 0 Yes [id number] Check Unive rs Misc 4-17 blood ity of 00:00: sugar 2 [place] 00 times a Medical day. Branch E11.9. Brand per insurance. gabapentin Yes [id number] 300mg Take 1 Univers 300 mg 4-17 capsule by ity of capsule 00:00: mouth in [place] 00 the Medical morning Branch and 1 capsule at noon and 1 capsule in the evening. amiodarone Yes [id number] 200mg Take 1 Univers 200 mg 4-17 tablet by ity of tablet 00:00: mouth in [place] the morning. Branch apixaban 5 0 Yes 5mg Take 1 Unive rs mg tablet 4-17 tablet by ity o f 00:00: mouth in [place] the morning Branch and 1 tablet in the evening. Indication s: ATRIAL FIBRILLATI ON atorvastati Yes [id number] 40mg Take 1 Univers n 40 mg 4-17 tablet by ity of tablet 00:00: mouth at [place] [address] bedtime. Medical Branch SERTraline Yes [id number] 100mg Take 1 Univers 100 mg 4-17 tablet by ity of tablet 00:00: mouth in [place] the morning. Branch lisinopriL Yes [id number] 2.5mg Take 1 Univers 2.5 mg 4-17 tablet by ity of tablet 00:00: mouth in [place] the morning. Branch metoprolol Yes [id number] 25mg Take 1 U nivers tartrate 25 4-17 tablet by ity of mg tablet 00:00: mouth in [facility] the morning Branch and 1 tablet in the evening. blood sugar 0 Yes [id number] Check U nivers diagnostic 4-17 blood ity of strip 00:00: sugar 2 [place] 00 times a Medical day. Branch E11.9. Brand per insurance. Uses ACCU-CHEK machine Lancets Yes [id number] Check Unive rs Misc 4-17 blood ity of 00:00: sugar 2 [place] 00 times a Medical day. Branch E11.9. Brand per insurance. gabapentin 0 Yes [id number] 300mg Take 1 [facility] 300 mg 4-17 capsule by ity of capsule 00:00: mouth in [place] the morning Branch and 1 capsule at noon and 1 capsule in the evening. amiodarone 0 Yes [id number] 200mg Take 1 [facility] 200 mg 4-17 tablet by ity of tablet 00:00: mouth in [place] 00 the morning. Branch apixaban 5 0 Yes 5mg Take 1 Unive rs mg tablet 4-17 tablet by ity o f 00:00: mouth in [place] 00 the morning Branch and 1 tablet in the evening. Indication s: ATRIAL FIBRILLATI ON atorvastati Yes [id number] 40mg Take 1 Univers n 40 mg 4-17 tablet by ity of tablet 00:00: mouth at [place] [address] bedtime. Medical Branch SERTraline Yes [id number] 100mg Take 1 [facility] 100 mg 4-17 tablet by ity of tablet 00:00: mouth in [place] 00 the morning. Branch lisinopriL Yes [id number] 2.5mg Take 1 Univers 2.5 mg 4-17 tablet by ity of tablet 00:00: mouth in [place] 00 the morning. Branch metoprolol Yes [id number] 25mg Take 1 U nivers tartrate 25 4-17 tablet by ity of mg tablet 00:00: mouth in [facility] 00 the morning Branch and 1 tablet in the evening. blood sugar Yes [id number] Check U nivers diagnostic 4-17 blood ity of strip 00:00: sugar 2 [place] 00 times a Medical day. Branch E11.9. Brand per insurance. Uses ACCU-CHEK machine Lancets Yes [id number] Check Unive rs Misc 4-17 blood ity of 00:00: sugar 2 [place] 00 times a Medical day. Branch E11.9. Brand per insurance. gabapentin Yes [id number] 300mg Take 1 Univers 300 mg 4-17 capsule by ity of capsule 00:00: mouth in [place] 00 the morning Branch and 1 capsule at noon and 1 capsule in the evening. amiodarone Yes [id number] 200mg Take 1 [facility] 200 mg 4-17 tablet by ity of tablet 00:00: mouth in [place] 00 the morning. Branch apixaban 5 0 Yes 5mg Take 1 Unive rs mg tablet 4-17 tablet by ity o f 00:00: mouth in [place] 00 the morning Branch and 1 tablet in the evening. Indication s: ATRIAL FIBRILLATI ON atorvastati Yes [id number] 40mg Take 1 Univers n 40 mg 4-17 tablet by ity of tablet 00:00: mouth at [place] [address] bedtime. Medical Branch SERTraline Yes [id number] 100mg Take 1 [facility] 100 mg 4-17 tablet by ity of tablet 00:00: mouth in [place] the morning. Branch lisinopriL Yes [id number] 2.5mg Take 1 Univers 2.5 mg 4-17 tablet by ity of tablet 00:00: mouth in [place] the morning. Branch metoprolol Yes [id number] 25mg Take 1 U nivers tartrate 25 4-17 tablet by ity of mg tablet 00:00: mouth in [facility] 00 the morning Branch and 1 tablet in the evening. blood sugar Yes [id number] Check U nivers diagnostic 4-17 blood ity of strip 00:00: sugar 2 [place] times a Medical day. Branch E11.9. Brand per insurance. Uses ACCU-CHEK machine Lancets Yes [id number] Check Unive rs Misc 4-17 blood ity of 00:00: sugar 2 [place] times a Medical day. Branch E11.9. Brand per insurance. gabapentin Yes [id number] 300mg Take 1 Univers 300 mg 4-17 capsule by ity of capsule 00:00: mouth in [place] the morning Branch and 1 capsule at noon and 1 capsule in the evening. amiodarone Yes [id number] 200mg Take 1 [facility] 200 mg 4-17 tablet by ity of tablet 00:00: mouth in [place] the morning. Branch apixaban 5 Yes 5mg Take 1 Unive rs mg tablet 4-17 tablet by ity o f 00:00: mouth in [place] the morning Branch and 1 tablet in the evening. Indication s: ATRIAL FIBRILLATI ON atorvastati Yes [id number] 40mg Take 1 Univers n 40 mg 4-17 tablet by ity of tablet 00:00: mouth at [place] [address] bedtime. Medical Branch SERTraline Yes [id number] 100mg Take 1 [facility] 100 mg 4-17 tablet by ity of tablet 00:00: mouth in [place] 00 the morning. Branch lisinopriL Yes [id number] 2.5mg Take 1 Univers 2.5 mg 4-17 tablet by ity of tablet 00:00: mouth in [place] the Medical morning. Branch metoprolol 0 Yes [id number] 25mg Take 1 U nivers tartrate 25 4-17 tablet by ity of mg tablet 00:00: mouth in [facility] the morning Branch and 1 tablet in the evening. blood sugar 2022-0 Yes [id number] Check U nivers diagnostic 4-17 blood ity of strip 00:00: sugar 2 [place] times a Medical day. Branch E11.9. Brand per insurance. Uses ACCU-CHEK machine Lancets 2022-0 Yes [id number] Check Unive rs Misc 4-17 blood ity of 00:00: sugar 2 [place] times a Medical day. Branch E11.9. Brand per insurance. gabapentin 2022-0 Yes [id number] 300mg Take 1 [facility] 300 mg 4-17 capsule by ity of capsule 00:00: mouth in [place] the morning Branch and 1 capsule at noon and 1 capsule in the evening. amiodarone 0 Yes [id number] 200mg Take 1 [facility] 200 mg 4-17 tablet by ity of tablet 00:00: mouth in [place] the morning. Branch apixaban 5 0 Yes 5mg Take 1 Unive rs mg tablet 4-17 tablet by ity o f 00:00: mouth in [place] the morning Branch and 1 tablet in the evening. Indication s: ATRIAL FIBRILLATI ON atorvastati 2022-0 Yes [id number] 40mg Take 1 Univers n 40 mg 4-17 tablet by ity of tablet 00:00: mouth at [place] [address] bedtime. Medical Branch SERTraline 2022-0 Yes [id number] 100mg Take 1 [facility] 100 mg 4-17 tablet by ity of tablet 00:00: mouth in [place] the morning. Branch lisinopriL 2022-0 Yes [id number] 2.5mg Take 1 Univers 2.5 mg 4-17 tablet by ity of tablet 00:00: mouth in [place] the morning. Branch metoprolol 2022-0 Yes [id number] 25mg Take 1 U nivers tartrate 25 4-17 tablet by ity of mg tablet 00:00: mouth in [facility] the morning Branch and 1 tablet in the evening. blood sugar 2022-0 Yes [id number] Check U nivers diagnostic 4-17 blood ity of strip 00:00: sugar 2 [place] 00 times a Medical day. Branch E11.9. Brand per insurance. Uses ACCU-CHEK machine Lancets Yes [id number] Check Unive rs Misc 4-17 blood ity of 00:00: sugar 2 [place] 00 times a Medical day. Branch E11.9. Brand per insurance. gabapentin Yes [id number] 300mg Take 1 [facility] 300 mg 4-17 capsule by ity of capsule 00:00: mouth in [place] 00 the morning Branch and 1 capsule at noon and 1 capsule in the evening. amiodarone Yes [id number] 200mg Take 1 [facility] 200 mg 4-17 tablet by ity of tablet 00:00: mouth in [place] 00 the morning. Branch apixaban 5 Yes 5mg Take 1 Unive rs mg tablet 4-17 tablet by ity o f 00:00: mouth in [place] the morning Branch and 1 tablet in the evening. Indication s: ATRIAL FIBRILLATI ON atorvastati Yes [id number] 40mg Take 1 Univers n 40 mg 4-17 tablet by ity of tablet 00:00: mouth at [place] [address] bedtime. Medical Branch SERTraline Yes [id number] 100mg Take 1 [facility] 100 mg 4-17 tablet by ity of tablet 00:00: mouth in [place] 00 the morning. Branch lisinopriL Yes [id number] 2.5mg Take 1 Univers 2.5 mg 4-17 tablet by ity of tablet 00:00: mouth in [place] 00 the morning. Branch metoprolol Yes [id number] 25mg Take 1 U nivers tartrate 25 4-17 tablet by ity of mg tablet 00:00: mouth in [facility] 00 the morning Branch and 1 tablet in the evening. blood sugar Yes [id number] Check U nivers diagnostic 4-17 blood ity of strip 00:00: sugar 2 [place] 00 times a Medical day. Branch E11.9. Brand per insurance. Uses ACCU-CHEK machine Lancets 0 Yes [id number] Check Unive rs Misc 4-17 blood ity of 00:00: sugar 2 [place] 00 times a Medical day. Branch E11.9. Brand per insurance. gabapentin Yes [id number] 300mg Take 1 [facility] 300 mg 4-17 capsule by ity of capsule 00:00: mouth in [place] 00 the Medical morning Branch and 1 capsule at noon and 1 capsule in the evening. amiodarone 0 Yes [id number] 200mg Take 1 [facility] 200 mg 4-17 tablet by ity of tablet 00:00: mouth in [place] 00 the morning. Branch apixaban 5 0 Yes 5mg Take 1 Unive rs mg tablet 4-17 tablet by ity o f 00:00: mouth in [place] 00 the morning Branch and 1 tablet in the evening. Indication s: ATRIAL FIBRILLATI ON atorvastati Yes [id number] 40mg Take 1 [facility] n 40 mg 4-17 tablet by ity of tablet 00:00: mouth at [place] [address] bedtime. Medical Branch SERTraline Yes [id number] 100mg Take 1 [facility] 100 mg 4-17 tablet by ity of tablet 00:00: mouth in [place] the morning. Branch lisinopriL Yes [id number] 2.5mg Take 1 [facility] 2.5 mg 4-17 tablet by ity of tablet 00:00: mouth in [place] [address] the morning. Branch metoprolol Yes [id number] 25mg Take 1 U nivers tartrate 25 4-17 tablet by ity of mg tablet 00:00: mouth in [facility] 00 the morning Branch and 1 tablet in the evening. blood sugar 0 Yes [id number] Check U nivers diagnostic 4-17 blood ity of strip 00:00: sugar 2 [place] 00 times a Medical day. Branch E11.9. Brand per insurance. Uses ACCU-CHEK machine Lancets 0 Yes [id number] Check Unive rs Misc 4-17 blood ity of 00:00: sugar 2 [place] 00 times a Medical day. Branch E11.9. Brand per insurance. gabapentin 0 Yes [id number] 300mg Take 1 [facility] 300 mg 4-17 capsule by ity of capsule 00:00: mouth in [place] 00 the Medical morning Branch and 1 capsule at noon and 1 capsule in the evening. amiodarone 2022-0 Yes [id number] 200mg Take 1 [facility] 200 mg 4-17 tablet by ity of tablet 00:00: mouth in [place] the morning. Branch apixaban 5 Yes 5mg Take 1 Unive rs mg tablet 4-17 tablet by ity o f 00:00: mouth in [place] the morning Branch and 1 tablet in the evening. Indication s: ATRIAL FIBRILLATI ON atorvastati Yes [id number] 40mg Take 1 [facility] n 40 mg 4-17 tablet by ity of tablet 00:00: mouth at [place] [address] bedtime. Medical Branch SERTraline Yes [id number] 100mg Take 1 [facility] 100 mg 4-17 tablet by ity of tablet 00:00: mouth in [place] the morning. Branch lisinopriL Yes [id number] 2.5mg Take 1 Univers 2.5 mg 4-17 tablet by ity of tablet 00:00: mouth in [place] the morning. Branch metoprolol Yes [id number] 25mg Take 1 U nivers tartrate 25 4-17 tablet by ity of mg tablet 00:00: mouth in [facility] the morning Branch and 1 tablet in the evening. blood sugar Yes [id number] Check U nivers diagnostic 4-17 blood ity of strip 00:00: sugar 2 [place] times a Medical day. Branch E11.9. Brand per insurance. Uses ACCU-CHEK machine Lancets Yes [id number] Check Unive rs Misc 4-17 blood ity of 00:00: sugar 2 [place] times a Medical day. Branch E11.9. Brand per insurance. gabapentin Yes [id number] 300mg Take 1 [facility] 300 mg 4-17 capsule by ity of capsule 00:00: mouth in [place] the morning Branch and 1 capsule at noon and 1 capsule in the evening. amiodarone Yes [id number] 200mg Take 1 [facility] 200 mg 4-17 tablet by ity of tablet 00:00: mouth in [place] 00 the morning. Branch apixaban 5 Yes 5mg Take 1 Unive rs mg tablet 4-17 tablet by ity o f 00:00: mouth in [place] the morning Branch and 1 tablet in the evening. Indication s: ATRIAL FIBRILLATI ON atorvastati Yes [id number] 40mg Take 1 [facility] n 40 mg 4-17 tablet by ity of tablet 00:00: mouth at [place] [address] bedtime. Medical Branch SERTraline Yes [id number] 100mg Take 1 [facility] 100 mg 4-17 tablet by ity of tablet 00:00: mouth in [place] the morning. Branch lisinopriL Yes [id number] 2.5mg Take 1 [facility] 2.5 mg 4-17 tablet by ity of tablet 00:00: mouth in [place] the morning. Branch metoprolol Yes [id number] 25mg Take 1 U nivers tartrate 25 4-17 tablet by ity of mg tablet 00:00: mouth in [facility] the morning Branch and 1 tablet in the evening. blood sugar Yes [id number] Check U nivers diagnostic 4-17 blood ity of strip 00:00: sugar 2 [place] times a Medical day. Branch E11.9. Brand per insurance. Uses ACCU-CHEK machine Lancets Yes [id number] Check Unive rs Misc 4-17 blood ity of 00:00: sugar 2 [place] times a Medical day. Branch E11.9. Brand per insurance. gabapentin Yes [id number] 300mg Take 1 [facility] 300 mg 4-17 capsule by ity of capsule 00:00: mouth in [place] the morning Branch and 1 capsule at noon and 1 capsule in the evening. amiodarone Yes [id number] 200mg Take 1 [facility] 200 mg 4-17 tablet by ity of tablet 00:00: mouth in [place] the morning. Branch apixaban 5 Yes 5mg Take 1 Unive rs mg tablet 4-17 tablet by ity o f 00:00: mouth in [place] the morning Branch and 1 tablet in the evening. Indication s: ATRIAL FIBRILLATI ON atorvastati Yes [id number] 40mg Take 1 [facility] n 40 mg 4-17 tablet by ity of tablet 00:00: mouth at [place] [address] bedtime. Medical Branch SERTraline Yes [id number] 100mg Take 1 [facility] 100 mg 4-17 tablet by ity of tablet 00:00: mouth in [place] 00 the morning. Branch lisinopriL Yes [id number] 2.5mg Take 1 Univers 2.5 mg 4-17 tablet by ity of tablet 00:00: mouth in [place] 00 the morning. Branch metoprolol Yes [id number] 25mg Take 1 U nivers tartrate 25 4-17 tablet by ity of mg tablet 00:00: mouth in [facility] 00 the morning Branch and 1 tablet in the evening. blood sugar 0 Yes [id number] Check U nivers diagnostic 4-17 blood ity of strip 00:00: sugar 2 [place] times a Medical day. Branch E11.9. Brand per insurance. Uses ACCU-CHEK machine Lancets Yes [id number] Check Unive rs Misc 4-17 blood ity of 00:00: sugar 2 [place] times a Medical day. Branch E11.9. Brand per insurance. gabapentin Yes [id number] 300mg Take 1 [facility] 300 mg 4-17 capsule by ity of capsule 00:00: mouth in [place] the morning Branch and 1 capsule at noon and 1 capsule in the evening. amiodarone Yes [id number] 200mg Take 1 [facility] 200 mg 4-17 tablet by ity of tablet 00:00: mouth in [place] the morning. Branch apixaban 5 Yes 5mg Take 1 Unive rs mg tablet 4-17 tablet by ity o f 00:00: mouth in [place] the morning Branch and 1 tablet in the evening. Indication s: ATRIAL FIBRILLATI ON atorvastati 2022-0 Yes [id number] 40mg Take 1 Univers n 40 mg 4-17 tablet by ity of tablet 00:00: mouth at [place] [address] bedtime. Medical Branch SERTraline 0 Yes [id number] 100mg Take 1 [facility] 100 mg 4-17 tablet by ity of tablet 00:00: mouth in [place] 00 the morning. Branch lisinopriL Yes [id number] 2.5mg Take 1 Univers 2.5 mg 4-17 tablet by ity of tablet 00:00: mouth in [place] 00 the morning. Branch metoprolol 2022-0 Yes [id number] 25mg Take 1 U nivers tartrate 25 4-17 tablet by ity of mg tablet 00:00: mouth in [facility] s the Medical morning Branch and 1 tablet in the evening. blood sugar 0 Yes [id number] Check U nivers diagnostic 4-17 blood ity of strip 00:00: sugar 2 [place] 00 times a Medical day. Branch E11.9. Brand per insurance. Uses ACCU-CHEK machine Lancets 0 Yes [id number] Check Unive rs Misc 4-17 blood ity of 00:00: sugar 2 [place] 00 times a Medical day. Branch E11.9. Brand per insurance. gabapentin 0 Yes [id number] 300mg Take 1 [facility] 300 mg 4-17 capsule by ity of capsule 00:00: mouth in [place] 00 the morning Branch and 1 capsule at noon and 1 capsule in the evening. amiodarone Yes [id number] 200mg Take 1 [facility] 200 mg 4-17 tablet by ity of tablet 00:00: mouth in [place] 00 the Medical morning. Branch apixaban 5 Yes 5mg Take 1 Unive rs mg tablet 4-17 tablet by ity o f 00:00: mouth in [place] 00 the morning Branch and 1 tablet in the evening. Indication s: ATRIAL FIBRILLATI ON atorvastati Yes [id number] 40mg Take 1 [facility] n 40 mg 4-17 tablet by ity of tablet 00:00: mouth at [place] [address] bedtime. Medical Branch SERTraline 0 Yes [id number] 100mg Take 1 [facility] 100 mg 4-17 tablet by ity of tablet 00:00: mouth in [place] 00 the Medical morning. Branch lisinopriL Yes [id number] 2.5mg Take 1 Univers 2.5 mg 4-17 tablet by ity of tablet 00:00: mouth in [place] 00 the Medical morning. Branch metoprolol 0 Yes [id number] 25mg Take 1 U nivers tartrate 25 4-17 tablet by ity of mg tablet 00:00: mouth in [facility] 00 the morning Branch and 1 tablet in the evening. blood sugar 2022-0 Yes [id number] Check U nivers diagnostic 4-17 blood ity of strip 00:00: sugar 2 [place] 00 times a Medical day. Branch E11.9. Brand per insurance. Uses ACCU-CHEK machine Lancets Yes [id number] Check Unive rs Misc 4-17 blood ity of 00:00: sugar 2 [place] 00 times a Medical day. Branch E11.9. Brand per insurance. gabapentin Yes [id number] 300mg Take 1 [facility] 300 mg 4-17 capsule by ity of capsule 00:00: mouth in [place] 00 the Medical morning Branch and 1 capsule at noon and 1 capsule in the evening. amiodarone Yes [id number] 200mg Take 1 [facility] 200 mg 4-17 tablet by ity of tablet 00:00: mouth in [place] 00 the morning. Branch apixaban 5 Yes 5mg Take 1 Unive rs mg tablet 4-17 tablet by ity o f 00:00: mouth in [place] 00 the morning Branch and 1 tablet in the evening. Indication s: ATRIAL FIBRILLATI ON atorvastati Yes [id number] 40mg Take 1 Univers n 40 mg 4-17 tablet by ity of tablet 00:00: mouth at [place] [address] bedtime. Medical Branch SERTraline Yes [id number] 100mg Take 1 [facility] 100 mg 4-17 tablet by ity of tablet 00:00: mouth in [place] the morning. Branch lisinopriL Yes [id number] 2.5mg Take 1 Univers 2.5 mg 4-17 tablet by ity of tablet 00:00: mouth in [place] the morning. Branch metoprolol Yes [id number] 25mg Take 1 U nivers tartrate 25 4-17 tablet by ity of mg tablet 00:00: mouth in [facility] 00 the morning Branch and 1 tablet in the evening. blood sugar 0 Yes [id number] Check U nivers diagnostic 4-17 blood ity of strip 00:00: sugar 2 [place] 00 times a Medical day. Branch E11.9. Brand per insurance. Uses ACCU-CHEK machine Lancets 0 Yes [id number] Check Unive rs Misc 4-17 blood ity of 00:00: sugar 2 [place] 00 times a Medical day. Branch E11.9. Brand per insurance. gabapentin Yes [id number] 300mg Take 1 [facility] 300 mg 4-17 capsule by ity of capsule 00:00: mouth in [place] 00 the Medical morning Branch and 1 capsule at noon and 1 capsule in the evening. amiodarone Yes [id number] 200mg Take 1 [facility] 200 mg 4-17 tablet by ity of tablet 00:00: mouth in [place] 00 the morning. Branch apixaban 5 0 Yes 5mg Take 1 Unive rs mg tablet 4-17 tablet by ity o f 00:00: mouth in [place] the morning Branch and 1 tablet in the evening. Indication s: ATRIAL FIBRILLATI ON atorvastati Yes [id number] 40mg Take 1 Univers n 40 mg 4-17 tablet by ity of tablet 00:00: mouth at [place] [address] bedtime. Medical Branch SERTraline Yes [id number] 100mg Take 1 [facility] 100 mg 4-17 tablet by ity of tablet 00:00: mouth in [place] the morning. Branch lisinopriL Yes [id number] 2.5mg Take 1 Univers 2.5 mg 4-17 tablet by ity of tablet 00:00: mouth in [place] the morning. Branch metoprolol Yes [id number] 25mg Take 1 U nivers tartrate 25 4-17 tablet by ity of mg tablet 00:00: mouth in [facility] the morning Branch and 1 tablet in the evening. blood sugar Yes [id number] Check U nivers diagnostic 4-17 blood ity of strip 00:00: sugar 2 [place] 00 times a Medical day. Branch E11.9. Brand per insurance. Uses ACCU-CHEK machine Lancets Yes [id number] Check Unive rs Misc 4-17 blood ity of 00:00: sugar 2 [place] 00 times a Medical day. Branch E11.9. Brand per insurance. gabapentin 0 Yes [id number] 300mg Take 1 [facility] 300 mg 4-17 capsule by ity of capsule 00:00: mouth in [place] 00 the morning Branch and 1 capsule at noon and 1 capsule in the evening. amiodarone 2022-0 Yes [id number] 200mg Take 1 Univers 200 mg 4-17 tablet by ity of tablet 00:00: mouth in [place] 00 the morning. Branch apixaban 5 0 Yes 5mg Take 1 Unive rs mg tablet 4-17 tablet by ity o f 00:00: mouth in [place] 00 the Medical morning Branch and 1 tablet in the evening. Indication s: ATRIAL FIBRILLATI ON atorvastati Yes [id number] 40mg Take 1 Univers n 40 mg 4-17 tablet by ity of tablet 00:00: mouth at [place] [address] bedtime. Medical Branch SERTraline Yes [id number] 100mg Take 1 [facility] 100 mg 4-17 tablet by ity of tablet 00:00: mouth in [place] 00 the morning. Branch lisinopriL Yes [id number] 2.5mg Take 1 Univers 2.5 mg 4-17 tablet by ity of tablet 00:00: mouth in [place] 00 the morning. Branch metoprolol Yes [id number] 25mg Take 1 U nivers tartrate 25 4-17 tablet by ity of mg tablet 00:00: mouth in [facility] 00 the morning Branch and 1 tablet in the evening. blood sugar Yes [id number] Check U nivers diagnostic 4-17 blood ity of strip 00:00: sugar 2 [place] 00 times a Medical day. Branch E11.9. Brand per insurance. Uses ACCU-CHEK machine Lancets Yes [id number] Check Unive rs Misc 4-17 blood ity of 00:00: sugar 2 [place] 00 times a Medical day. Branch E11.9. Brand per insurance. gabapentin Yes [id number] 300mg Take 1 Univers 300 mg 4-17 capsule by ity of capsule 00:00: mouth in [place] 00 the morning Branch and 1 capsule at noon and 1 capsule in the evening. amiodarone Yes [id number] 200mg Take 1 [facility] 200 mg 4-17 tablet by ity of tablet 00:00: mouth in [place] 00 the morning. Branch apixaban 5 0 Yes 5mg Take 1 Unive rs mg tablet 4-17 tablet by ity o f 00:00: mouth in [place] 00 the Medical morning Branch and 1 tablet in the evening. Indication s: ATRIAL FIBRILLATI ON atorvastati Yes [id number] 40mg Take 1 Univers n 40 mg 4-17 tablet by ity of tablet 00:00: mouth at [place] [address] bedtime. Medical Branch SERTraline 0 Yes [id number] 100mg Take 1 [facility] 100 mg 4-17 tablet by ity of tablet 00:00: mouth in [place] 00 the Medical morning. Branch lisinopriL 2022-0 Yes [id number] 2.5mg Take 1 Univers 2.5 mg 4-17 tablet by ity of tablet 00:00: mouth in [place] 00 the Medical morning. Branch metoprolol 2022-0 Yes [id number] 25mg Take 1 U nivers tartrate 25 4-17 tablet by ity of mg tablet 00:00: mouth in [facility] 00 the Medical morning Branch and 1 tablet in the evening. blood sugar 0 Yes [id number] Check U nivers diagnostic 4-17 blood ity of strip 00:00: sugar 2 [place] 00 times a Medical day. Branch E11.9. Brand per insurance. Uses ACCU-CHEK machine Lancets Yes [id number] Check Unive rs Misc 4-17 blood ity of 00:00: sugar 2 [place] 00 times a Medical day. Branch E11.9. Brand per insurance. SERTraline 2022-0 Yes [id number] 100mg Take 1 Univers 100 mg 4-17 tablet by ity of tablet 00:00: mouth in [place] 00 the Medical morning. Branch SERTraline 2022-0 2022- No [id number] 100mg Take 1 Univers 100 mg 4-17 05-19 tablet by ity of tablet 00:00: 00:00 mouth in [place] 00 :00 the Medical morning. Branch gabapentin 2022-0 2022- No [id number] 300mg Take 1 Univers 300 mg 4-17 05-18 capsule by ity of capsule 00:00: 00:00 mouth in [place] 00 :00 the Medical morning Branch and 1 capsule at noon and 1 capsule in the evening. amiodarone 2022-0 2022- No [id number] 200mg Take 1 Univers 200 mg 4-17 [...] s: ATRIAL FIBRILLATI ON atorvastati 2022- No [id number] 40mg Take 1 Univers n 40 mg 08-05-18 tablet by ity of tablet 00:00: 00:00 mouth at [place] 00 :00 bedtime. Medical Branch lisinopriL 2022- No [id number] 2.5mg Take 1 Univers 2.5 mg 08-05-18 tablet by ity of tablet 00:00: 00:00 mouth in [place] 00 :00 the Medical morning. Branch metoprolol 2022- No [id number] 25mg Take 1 Univers tartrate 25 08-05-18 tablet by it y of mg tablet 00:00: 00:00 mouth in [place] 00 :00 the Medical morning Branch and 1 tablet in the evening. blood sugar 2022- No [id number] Check Univers diagnostic 08-05-18 blood ity of strip 00:00: 00:00 sugar 2 [place] 00 :00 times a Medical day. Branch E11.9. Brand per insurance. Uses ACCU-CHEK machine Lancets 2022- No [id number] Check Univ ers Misc -04 09-18 blood ity of 00:00: 00:00 sugar 2 [place] 00 :00 times a Medical day. Branch E11.9. Brand per insurance. blood sugar 2022- No [id number] Check Univers diagnostic 4-17 -17 blood ity of strip 00:00: 00:00 sugar 2 [place] 00 :00 times a Medical day. Branch E11.9. Brand per insurance. Uses ACCU-CHEK machine blood sugar 2022- No [id number] Check Univers diagnostic 4-17 -17 blood ity of strip 00:00: 00:00 sugar 2 [place] 00 :00 times a Medical day. Branch E11.9. Brand per insurance. Uses ACCU-CHEK machine blood sugar 2022- No [id number] Check Univers diagnostic 4-17 -17 blood ity of strip 00:00: 00:00 sugar 2 [place] 00 :00 times a Medical day. Branch E11.9. Brand per insurance. Uses ACCU-CHEK machine amiodarone Yes 200mg Take 1 Univ ers 200 mg 4-12 tablet by ity of tablet 00:00: mouth in [place] 00 the Medical morning. Branch SERTraline 2023-0 Yes 25mg Take 1 Unive rs 25 mg 4-12 tablet by ity of tablet 00:00: mouth in [place] 00 the Medical morning. Branch amiodarone 2023-0 Yes 200mg Take 1 Univ ers 200 mg 4-12 tablet by ity of tablet 00:00: mouth in [place] 00 the Medical morning. Branch SERTraline 2023-0 Yes 25mg Take 1 Unive rs 25 mg 4-12 tablet by ity of tablet 00:00: mouth in [place] 00 the Medical morning. Branch amiodarone 2023-0 Yes 200mg Take 1 Univ ers 200 mg 4-12 tablet by ity of tablet 00:00: mouth in [place] 00 the Medical morning. Branch SERTraline 2023-0 Yes 25mg Take 1 Unive rs 25 mg 4-12 tablet by ity of tablet 00:00: mouth in [place] 00 the Medical morning. Branch amiodarone 2023-0 2023- No 200mg Take 1 Uni vers 200 mg 4-12 04-17 tablet by ity of tablet 00:00: 00:00 mouth in [place] 00 :00 the Medical morning. Branch SERTraline 2023-0 2023- No 100mg Take 1 Uni vers 100 mg 4-12 04-17 tablet by ity of tablet 00:00: 00:00 mouth in [place] 00 :00 the Medical morning. Branch amiodarone 2023-0 2023- No 200mg Take 1 Uni vers 200 mg 4-12 04-17 tablet by ity of tablet 00:00: 00:00 mouth in [place] 00 :00 the Medical morning. Branch SERTraline 2023-0 2023- No 100mg Take 1 Uni vers 100 mg 4-12 04-17 tablet by ity of tablet 00:00: 00:00 mouth in [place] 00 :00 the Medical morning. Branch amiodarone 2023-0 2023- No 200mg Take 1 Uni vers 200 mg 4-12 04-17 tablet by ity of tablet 00:00: 00:00 mouth in [place] 00 :00 the Medical morning. Branch SERTraline 2023-0 2023- No 100mg Take 1 Uni vers 100 mg 4-12 04-17 tablet by ity of tablet 00:00: 00:00 mouth in [place] 00 :00 the Medical morning. Branch sodium 2023-0 Yes Topical, Univers hypochlorit 4-11 BID, First it y of e 0.025% 01:00: dose on [place] ([facility]) Fri Medical solution 07/29/22 at [facility] h 2000, Until Discontinu ed, Routine iron 2022- No 500mg 500 mg, IV Unive rs sucrose 07-29 Infusion, ity of (VENOFER) 19:15: 23:11 ONCE, [place] 500 mg in 00 :00 Administer Medi dilshad NaCl 0.9% over 2.5 Branch (NS) 250 mL Hours, On infusion 07/29/22 at 1415, For 1 dose iopamidol 2022- No [id number] 80mL 80 mL, Univers (ISOVUE 07-29 Intravenou ity o f 370-500 mL) 16:26: 16:26 s, ONCE, 1 [place] injection 00 :00 dose, On Medica l 80 mL Mon Branch 07/29/22 at 1145, Routine lidocaine 2022- No 20mL 20 mL, Unive rs 1% 07-29 Infiltrati ity of (XYLOCAINE) 16:00: 15:27 on, ONCE, [place] 10 mg/mL (1 00 :00 1 dose, On Me dical %) [facility] Branch injection 07/29/22 at 20 mL 1100, STAT lactated 2022- No 1000mL at 100 Univ ers ringers IV 07-29 04-10 mL/hr, ity of infusion 15:30: 15:36 1,000 mL, [place] 1,000 mL 00 :20 Intravenou Medic al s, ONCE, 1 Branch dose, On [facility] 07/29/22 at 1030, Routine acetaminoph Yes [...] [place] mg 00 First dose Medical on [place] Branch 07/28/22 at 0900, Until Discontinu ed, Routine SERTraline Yes 25mg 25 mg, Unive rs (ZOLOFT) 07-28 Oral, ity of tablet 25 14:00: DAILY, [place] mg 00 First dose Medical on [place] Branch 07/28/22 at 0900, Until Discontinu ed, Routine Sliding Yes Subcutaneo Univ ers Scale 07-28 us, TID ity of Insulin - 13:00: MEALS+HS, [place] Lispro 00 First dose Medical (HumaLOG) + on [place] Branch Fsbg 07/28/22 at Testing 0800, Until Discontinu ed, Routine levETIRAcet No 500mg 500 mg, U nivers am (KEPPRA) 07-28 Oral, BID, i ty of tablet 500 13:00: 12:48 First dose [place] mg 00 :43 on [facility] 07/28/22 at Branch 0800, Until Discontinu ed, Routine vancomycin 2022- No 15mg/kg 1,500 mg Univers (VANCOCIN) 07-28 (rounded ity of 1,500 mg in 11:00: 13:55 from 1,380 [place] NaCl 0.9% 00 :31 mg = 15 Medical (NS) 500 mL mg/kg ?92 [facility] VIAL-MATE kg), IV IV Piggyback, [...] :00 ONCE, 1 Medical dose, On Branch [place] 07/28/22 at 0530, Routine NaCl 0.9% 2022- No 500mL at 999 [facility] ers (NS) bolus 07-28 mL/hr, 500 it y of infusion 09:54: 11:57 mL, IV [place] 500 mL 00 :00 Piggyback, Medical ONCE, 1 Branch dose, On [place] 07/28/22 at 0500, STAT lactated 2022- No 1000mL at 999 Univ ers ringers IV 07-28 mL/hr, ity of infusion 08:30: 09:06 1,000 mL, [place] 1,000 mL 00 :00 Intravenou Medic al s, ONCE, 1 Branch dose, On [place] 07/28/22 at 0330, Routine HEPARIN 2022- No 4000U 4,000 Univers SODIUM 07-28 Units, IV ity of (PORCINE) 07:45: 08:24 Push, [place] 1,000 00 :00 ONCE, 1 Medical UNIT/ML dose, On Branch BOLUS ACS [place] 07/28/22 ORDER SET at 0245, GELA dextrose 0 Yes 250mL 250 mL, IV Un anil 10% (D10W) 07-28 Infusion, ity of bolus 07:32: PRN - SEE [place] infusion 32 INSTRUCTIO Medic al 250 mL NS, Branch Administer over 60 Minutes, Other, If blood glucose is < or = 70 mg/dL and patient is unable to swallow or has mental status changes, Starting on [place] 07/28/22 at 0232
If blood glucose is [...] mL vial) 11 :03 on [facility] for 07/28/22 at Branch Rebolusing 0230, Until 07/29/22 at 0943, Routine
Dosing based on aPPT testing parameters (refer to continuous heparin drip order).
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 cephALEXin 2022- No [id number] 500mg Take 1 Univers (KEFLEX) 07-19-11 capsule by ity of 500 mg 00:00: 00:00 mouth 4 [place] capsule 00 :00 (four) Medical times Branch daily. HYDROcodone 2022- No [id number] 1{tbl} Take 1 U nivers -acetaminop 07-1908 tablet by it y of hen (NORCO) 00:00: 04:59 mouth [place] 10-325 mg 00 :00 every 6 Medical tablet (six) Branch hours as needed for Pain (scale 7-10) for up to 7 days. Indication s: acute pain sulfamethox 2022- No [id number] 2{tbl} Take 2 Univers azole-trime 3-31 04-08 [...] OF JUICE OR WATER HYDROcodone 0 Yes [id number] 1{tbl} Q6H Take 1 M ethodi -acetaminop [...] OF JUICE OR WATER HYDROcodone 2022-0 Yes [id number] 1{tbl} Q6H Take 1 M ethodi -acetaminop [...] OF JUICE OR WATER HYDROcodone 2022-0 Yes [id number] 1{tbl} Q6H Take 1 M ethodi -acetaminop [...] OF JUICE [place] WATER HYDROcodone 2022-0 Yes [id number] 1{tbl} Q6H Take 1 M ethodi -acetaminop [...] OF JUICE OR WATER HYDROcodone 2022-0 Yes [id number] 1{tbl} Q6H Take 1 M ethodi -acetaminop [...] OF JUICE OR WATER HYDROcodone 2022-0 Yes [id number] 1{tbl} Q6H Take 1 M ethodi -acetaminop [...] OF JUICE OR WATER HYDROcodone 2022-0 Yes [id number] 1{tbl} Q6H Take 1 M ethodi -acetaminop [...] OF JUICE OR WATER HYDROcodone 2022-0 Yes [id number] 1{tbl} Q6H Take 1 M ethodi -acetaminop [...] OF JUICE [place] WATER HYDROcodone 2022-0 Yes [id number] 1{tbl} Q6H Take 1 M ethodi -acetaminop [...] OF JU[place] WATER HYDROcodone 2022-0 Yes [id number] 1{tbl} Q6H Take 1 M ethodi -acetaminop [...] (six) hours as needed for fever. famotidine 3-0 Yes 20mg Q.5D Take 1 Metho di [...] OF [place] HYDROcodone 3-0 Yes [id number] 1{tbl} Q6H Take 1 M ethodi -acetaminop [...] hours for 6 days. levoFLOXaci 2022-2022- No [id number] 500mg QD Take 1 Methodi n 06-[id number] (Levaquin) 00:00: 00:00 (500 mg [facility] [place] 500 MG 00 :00 total) by l tablet mouth daily. levoFLOXaci 2022-2022- No [id number] 500mg QD Take 1 Methodi n 06-[id number] (Levaquin) 00:00: 00:00 (500 mg [facility] [place] 500 MG 00 :00 total) by l tablet mouth daily. levoFLOXaci 2022- No [id number] 500mg QD Take 1 Methodi n 06-[id number] (Levaquin) 00:00: 00:00 (500 mg [facility] [place] 500 MG 00 :00 total) by l tablet mouth daily. levoFLOXaci 2022-0 2022- No [id number] 500mg QD Take 1 Methodi n 06-[id number] (Levaquin) 00:00: 00:00 (500 mg [facility] [place] 500 MG 00 :00 total) by l tablet mouth daily. levoFLOXaci 2022- No [id number] 500mg QD Take 1 Methodi n 06-[id number] (Levaquin) 00:00: 00:00 (500 mg [facility] [place] 500 MG 00 :00 total) by l tablet mouth daily. levoFLOXaci 2022- No [id number] 500mg QD Take 1 Methodi n 06-[id number] (Levaquin) 00:00: 00:00 (500 mg [facility] [place] 500 MG 00 :00 total) by l tablet mouth daily. levoFLOXaci 2022- No [id number] 500mg QD Take 1 Methodi n 06-[id number] (Levaquin) 00:00: 00:00 (500 mg [facility] [place] 500 MG 00 :00 total) by l tablet mouth daily. levoFLOXaci 2022- No [id number] 500mg QD Take 1 Methodi n 06-[id number] (Levaquin) 00:00: 00:00 (500 mg [facility] [place] 500 MG 00 :00 total) by l tablet mouth daily. levoFLOXaci 2022- No [id number] 500mg QD Take 1 Methodi n 06-[id number] (Levaquin) 00:00: 00:00 (500 mg [facility] [place] 500 MG 00 :00 total) by l tablet mouth daily. levoFLOXaci 2022- No [id number] 500mg QD Take 1 Methodi n 06-[id number] (Levaquin) 00:00: 00:00 (500 mg [facility] [place] 500 MG 00 :00 total) by l tablet mouth daily. levoFLOXaci 2022- No [id number] 500mg QD Take 1 Methodi n 06-[id number] (Levaquin) 00:00: 00:00 (500 mg [...] Method i mg tablet 2-19 tablet ( st 00:00: mg total) [facility] 00 by mouth 2 l (two) times a day. FOR PAD Eliquis 5 2023-0 Yes 5mg Q.5D Take 1 Method i mg tablet 2-19 tablet ( st 00:00: mg total) [facility]osp[facility] 00 by [...] cephalexin 2023-0 2023- No Method i (KEFLEX) 2-15 03-15 st 500 MG 00:00: 00:00 [facility]ospita capsule 00 :00 l cephalexin 2023-0 2023- No Method i (KEFLEX) 2-15 03-15 st 500 MG 00:00: 00:00 [facility]ospita capsule 00 :00 l cephalexin 2023-0 2023- No Method i (KEFLEX) 2-15 03-15 st 500 MG 00:00: 00:00 [facility]ospita capsule 00 :00 l cephalexin 2023-0 2023- No Method i (KEFLEX) 2-15 03-15 st 500 MG 00:00: 00:00 [facility]ospita capsule 00 :00 l cephalexin 2023-0 2023- No Method i (KEFLEX) 2-15 03-15 st 500 MG 00:00: 00:00 [facility]ospita capsule 00 :00 l cephalexin 2023-0 2023- No Method i (KEFLEX) 2-15 03-15 st 500 MG 00:00: 00:00 [facility]ospita capsule 00 :00 l cephalexin 2023-0 2023- No Method i (KEFLEX) 2-15 03-15 st 500 MG 00:00: 00:00 [facility]ospita capsule 00 :00 l cephalexin 2023-0 2023- No Method i (KEFLEX) 2-15 03-15 st 500 MG 00:00: 00:00 Hospita capsule 00 :00 l cephalexin 2023-0 2023- No Method i (KEFLEX) 2-15 03-15 st 500 MG 00:00: 00:00 [facility]ospita capsule 00 :00 l cephalexin 2023-0 2023- No Method i (KEFLEX) 2-15 03-15 st 500 MG 00:00: 00:00 Hospita capsule 00 :00 l cephalexin 2023-0 2023- No Method i (KEFLEX) 2-15 03-15 st 500 MG 00:00: 00:00 Hospita capsule 00 :00 l benzonatate 2023-0 Yes Take by Met aggiei (TESSALON) 1-[address] 100 MG 00:00: Hospita capsule 00 l benzonatate 2023-0 Yes Take by [facility] (TESSALON) 1-[address] 100 MG 00:00: [...] hours for 10 days. HYDROcodone 2022- No [id number] 1{tbl} Q6H Take 1 [facility] -acetaminop 05-[address] [facility] ([facility]) 00:00: 05:59 mouth [facility] 10-325 mg [...] hours for 10 days. HYDROcodone 2022-20[place]- [place] [id number] 1{tbl} Q6H Take 1 Method[facility] -acetaminop 05-[address] hen (Scaffold) 00:00: 05:59 mouth [facility] 10-325 mg [...] (twelve) hours for 10 days. HYDROcodone 3-0 202- No [id number] 1{tbl} Q6H Take 1 [facility] -acetaminop 05-14- tablet by [facility] (Scaffold) 00:00: 05:59 mouth [facility] 10-325 mg [...] for 10 days. HYDROcodone 2022-0 2022- [place] [id number] 1{tbl} Q6H Take 1 [facility] -acetaminop 05-14- tablet by [facility] hen (Scaffold) 00:00: 05:59 mouth [facility] 10-325 mg [...] (twelve) hours for 10 days. HYDROcodone 3-0 202- No [id number] 1{tbl} Q6H Take 1 [facility] -acetaminop 05-14- tablet by [facility] hen (Scaffold) 00:00: 05:59 mouth [facility] 10-325 mg [...] for 10 days. HYDROcodone 2023-0 202- No [id number] 1{tbl} Q6H Take 1 [facility] -acetaminop 05-14- tablet [facility] ([facility]) 00:00: 05:59 mouth [facility] 10-325 mg [...] for 10 days. HYDROcodone 2023-0 202- No [id number] 1{tbl} Q6H Take 1 [facility] -acetaminop 05-14- tablet by st [facility]) 00:00: 05:59 mouth [facility] 10-325 mg [...] for 10 days. HYDROcodone 2023-0 202- No [id number] 1{tbl} Q6H Take 1 [facility] -acetaminop 05-14- tablet [facility]) 00:00: 05:59 mouth [facility] 10-325 mg [...] hours for 10 days. [place] 2022-[place] [id number] 1{tbl} Q6H Take 1 [facility] -acetaminop 05-[address] [facility] ([facility]) 00:00: 05:59 mouth [facility] 10-325 mg [...] for 10 days. HYDROcodone 2022-0 2022- [place] [id number] 1{tbl} Q6H Take 1 Method[facility] -acetaminop 05-14 tablet by yourdelivery) 00:00: 05:59 mouth [facility] 10-325 mg [...] for 10 days. HYDROcodone 2022-0 2022- No [id number] 1{tbl} Q6H Take 1 [facility] -acetaminop 05-[address] [facility]) 00:00: 05:59 mouth [facility] 10-325 mg 00 :00 every 6 l per tablet (six) hours as needed for moderate pain or severe pain for up to 7 days .acute pain. Max Daily Amount: 4 tablets apixaban 2021-04- No 5mg Q.5D Take 1 Method i (ELIQUIS) 5 2-30 02-04 tablet (5 st mg tablet 00:00: 05:59 [...] for 30 days. insulin 2021-04 No 0U [id number] Inject M ethodi lispro 05-25 [id number] 0-[address] (ADMELOG) 00:00: 05:59 3D [...] for 30 days. insulin 2021-04- No 0U [id number] Inject M ethodi lispro 05-25 [id number] 0-[address] (ADMELOG) 00:00: 05:59 3D [...] for 30 days. insulin 2021-04- No 0U [id number] Inject M ethodi lispro 05-25 [id number] 0-[address] (ADMELOG) 00:00: 05:59 3D [...] for 30 days. insulin 2021-04- No 0U [id number] Inject M ethodi lispro 05-25 [id number] 0-[address] (ADMELOG) 00:00: 05:59 3D [...] for 30 days. insulin 2021-04- No 0U [id number] Inject M ethodi lispro 05-25 [id number] 0-[address] (ADMELOG) 00:00: 05:59 3D [...] for 30 days. insulin 2021-04- No 0U [id number] Inject M ethodi lispro 05-25 [id number] 0-[address] (ADMELOG) 00:00: 05:59 3D [...] for 30 days. insulin 2021-04- No 0U [id number] Inject M ethodi lispro 05-25 [id number] 0-[address] (ADMELOG) 00:00: 05:59 3D [...] for 30 days. insulin 2021-04- No 0U [id number] Inject M ethodi lispro 05-25 [id number] 0-[address] (ADMELOG) 00:00: 05:59 3D under the [facility] 100 unit/mL 00 :00 skin 3 l injection (three) times a day before meals for 30 days. amIODarone 2021-04- No 200mg Q.5D Take 1 Met h[facility] (PACERONE) -[address] 200 MG 00:00: 05:59 (200 [...] for 30 days. insulin 2021-04 No 0U [id number] Inject M ethodi lispro 05-25 [id number] 0-[address] (ADMELOG) 00:00: 05:59 3D [...] for 30 days. insulin 2021-04 No 0U [id number] Inject M ethodi lispro 05-25 [id number] 0-[address] (ADMELOG) 00:00: 05:59 3D under the [facility] 100 unit/mL 00 :00 skin 3 l injection (three) times a day before meals for 30 days. amIODarone 2021-04 No 200mg Q.5D Take 1 Met hodi (PACERONE) 05-[address] 200 MG 00:00: 05:59 (200 mg Hospita tablet 00 :00 total) by l mouth every 12 (twelve) hours for 30 days. atorvastati 2021-04 No 40mg [...] for 30 days. insulin 2021-04- No 0U [id number] Inject M ethodi lispro 05-25 [id number] 0-[address] (ADMELOG) 00:00: 05:59 3D [...] times a day for 10 days. acyclovir 2022-1 2023- No 400mg Q.5D Take 2 [facility] (ZOVIRAX) 2-30 01-[address] 200 MG 00:00: 05:59 (400 mg Hospita capsule 00 :00 total) by l mouth 2 (two) times a day for 10 days. acyclovir 2021-04- No 400mg Q.5D Take 2 Meth [facility] (ZOVIRAX) 2-30 01-[address] 200 MG 00:00: 05:59 (400 mg [facility]ospita capsule 00 :00 total) by l mouth 2 (two) times a day for 10 days. acyclovir 2021-04- No 400mg Q.5D Take 2 [facility] (ZOVIRAX) 2-30 01-[address] 200 MG 00:00: 05:59 (400 [...] Q.5D Take 2 Meth greer (ZOVIRAX) 230 01-[address] 200 MG 00:00: 05:59 (400 [...] Q.5D Take 2 Meth [facility] (ZOVIRAX) 2-30 01-[address] 200 MG 00:00: 05:59 (400 mg Hospita capsule 00 :00 total) by l mouth 2 (two) times a day for 10 days. acyclovir 2021-04- No 400mg Q.5D Take 2 Meth [facility] (ZOVIRAX) 2-30 01-[address] 200 MG 00:00: 05:59 (400 [...] Q.5D Take 1 Method i (ELIQUIS) 5 30 tablet (5 st mg tablet 00:00: 00:00 [...] 30 injection days. insulin 2021-04- No 0U [id number] Inject M ethodi lispro 05-14- [id number] 0-[address] (ADMELOG) 00:00: 00:00 3D [...] 30 injection days. insulin 2021-04 No 0U [id number] Inject M ethodi lispro 05-14 [id number] 0-[address] (ADMELOG) 00:00: 00:00 3D [...] 30 injection days. insulin 2021-04- No 0U [id number] Inject M ethodi lispro 05-14 [id number] 0-[address] (ADMELOG) 00:00: 00:00 3D [...] 30 injection days. insulin 2021-04- No 0U [id number] Inject M ethodi lispro 05-14 [id number] 0-[address] (ADMELOG) 00:00: 00:00 3D [...] No 81mg QD Take 1 [facility] (ECOTRIN) 05-14- tablet (81 st 81 MG 00:00: 00:00 [...] 30 injection days. insulin 2021-04 No 0U [id number] Inject M ethodi lispro 05-14 [id number] 0-[address] (ADMELOG) 00:00: 00:00 3D [...] 30 injection days. insulin 2021-04 No 0U [id number] Inject M ethodi lispro 05-14 [id number] 0-[address] (ADMELOG) 00:00: 00:00 3D [...] 30 injection days. insulin 2021-04- No 0U [id number] Inject M ethodi lispro 05-14 [id number] 0-[address] (ADMELOG) 00:00: 00:00 3D [...] 30 injection days. insulin 2021-04- No 0U [id number] Inject M ethodi lispro 05-14 [id number] 0-[address] (ADMELOG) 00:00: 00:00 3D [...] 30 injection days. insulin 2021-04- No 0U [id number] Inject M ethodi lispro 05-14 [id number] 0-[address] (ADMELOG) 00:00: 00:00 3D [...] 30 injection days. insulin 2021-04- No 0U [id number] Inject M ethodi lispro 05-14- [id number] 0-[address] (ADMELOG) 00:00: 00:00 3D [...] 30 injection days. insulin 2021-04 No 0U [id number] Inject M ethodi lispro 05-14 [id number] 0-[address] (ADMELOG) 00:00: 00:00 3D [...] 2021- No metformin [facility] (GLUCOPHAGE 8 0823 1,[address] ) 1,000 mg [...] ) 1,000 mg 10:46: 00:00 tablet [facility] tablet 19 :00 Take 1 l tablet [...] 90 days.Stren gth: 1,000 mg metFORMIN 2022-0 2023- No metformin [facility] (GLUCOPHAGE 824 1,[address] ) 1,000 mg 00:00: 00:00 tablet [facility] tablet 00 :00 Take 1 l tablet twice a day by oral route for 90 days.Stren gth: 1,000 mg metFORMIN 2022-0 2023- No metformin [facility] (GLUCOPHAGE 824 1,[address] ) 1,000 mg 00:00: 00:00 tablet [facility] tablet 00 :00 Take 1 l tablet twice a day by oral route for 90 days.Stren gth: 1,000 mg metFORMIN 2022-0 202- No metformin [facility] (GLUCOPHAGE 805-14 1,[address] ) 1,000 mg 00:00: 00:00 tablet [facility] tablet 00 :00 Take 1 l tablet twice a day by oral route for 90 days.Stren gth: 1,000 mg metFORMIN 2022-0 2023- No metformin [facility] (GLUCOPHAGE 805-14 1,000 [...] 90 days.Stren gth: 1,000 mg metFORMIN 2022-0 2023- No metformin [facility] (GLUCOPHAGE 824 1,[address] ) 1,000 mg 00:00: 00:00 tablet [facility] tablet 00 :00 Take 1 l tablet twice a day by oral route for 90 days.Stren gth: 1,000 mg metFORMIN 2022-0 2023- No metformin [facility] (GLUCOPHAGE 824 1,[address] ) 1,000 mg 00:00: 00:00 tablet [facility] tablet 00 :00 Take 1 l tablet twice a day by oral route for 90 days.Stren gth: 1,000 mg nicotine 2022-0 2022- No 1{patch QD Place 1 [facility] (NICODERM 826 09-26 } patch on st CQ) 21 00:00: 04:59 [facility] mg/[facility] hr 00 :00 daily for l 30 days. nicotine 2021- No 1{patch QD Place 1 [facility] (NICODERM 826 09-26 } patch on st CQ) 21 [...] QD Place 1 [facility] (NICODERM 826 09-26 } patch on st CQ) 00:00: 04:59 [facility] mg/24 hr 00 :00 daily for l 30 days. nicotine 2021- No 1{patch QD Place 1 [facility] (NICODERM 826 09-26 } patch on st CQ) 00:00: [...] day for 10 days. traMADoL 2021- No [id number] 50mg Q6H Take 1 [facility] di (ULTRAM) 50 7-21 07-29 tablet (50 s t mg tablet 00:00: 04:59 mg total) [facility] 00 :00 by mouth l every 6 (six) hours as needed for moderate pain for up to 7 days .acute pain. traMADoL 41519 50mg Q6H Take 1 Metho di (ULTRAM) [...] up to 7 days .acute pain. traMADoL 71978 50mg Q6H Take 1 [facility] di (ULTRAM) 50 7-08 11-29 tablet (50 s t mg tablet 00:00: 04:59 mg total) [facility] 00 :00 by mouth l every 6 (six) hours as needed for moderate pain for up to 7 days .acute pain. traMADoL 04396 50mg Q6H Take 1 [facility] di (ULTRAM) [...] 7 days .acute pain. traMADoL 2021- No 16[address] 50mg Q6H Take 1 [facility] di (ULTRAM) 50 -08 11-29 tablet (50 s t mg tablet 00:00: 04:59 mg total) [facility] 00 :00 by mouth l every 6 (six) hours as needed for moderate pain for up to 7 days .acute pain. traMADoL 2021- [place] [address] 50mg Q6H Take 1 [facility] di (ULTRAM) 50 -08 11-29 tablet (50 s t mg tablet 00:00: 04:59 mg total) [facility] 00 :00 by mouth l every 6 (six) hours as needed for moderate pain for up to 7 days .acute pain. losartan 0 Yes [facility] (COZAAR) 50 6-14 st MG tablet 00:00: Hospita 00 l losartan 2-0 Yes [facility] (COZAAR) 50 6-14 [...] :00 l 875-125 mg per tablet ibuprofen 0 2021- No [facility] (ADVIL) 600 6-14 08-26 st MG tablet 00:00: 00:00 Hospita 00 :00 l amoxicillin 2021-0 2021- No Meth[facility] di -pot 6-14 08-26 st clavulanate 00:00: 00:00 Hospi ta (AUGMENTIN) 00 :00 l 875-125 mg per tablet ibuprofen 0 2021- No [facility] (ADVIL) 600 6-14 08-26 st MG tablet 00:00: 00:00 Hospita 00 :00 l amoxicillin 2021-0 2021- No Metho di -pot 6-14 08-26 [...] gauge 00 l x 5/16 syringe [facility] 2022-0 2023- [...] :00 l x 5/16 syringe [facility] 0 2022- No Q.25D 4 (four) [facility] [...] EXPIRES 28 DAYS AFTER FIRST USE. Lantus 2022021- No INJECT 15 [facility] di U-100 4-19 [...] Atorvastati No 1{Table Atorvastat 2.16.84 n Calcium 3- t} in Calcium 0.1. 113 20 MG Oral 00:00: 20 MG Oral 8 83.4.2 Tablet 00 Tablet; 1 (one) Tablet qhs for 0 days Quantity: 90 {Tablet}Re fills: 0Ordered: 2[facility] t: 2 Lantus 100 No 10{unit Lantus 100 2.16.84 UNIT/ML 3-11 s} UNIT/ML 0.1.113 Subcutaneou 00:00: Subcutaneo 883.4.2 s Solution 00 us Solution; 10 units qhs. for 0 days Quantity: 10 {Millilite r}Refills: 0Ordered: [address] [place] [address] t: 2 True Metrix No 1{Each} True Please 2 .16.84 Blood 3-11 Metrix substitut 0.1.113 Glucose 00:00: Blood e prn. 883.4.2 Test In 00 Glucose Vitro Strip Test In Vitro Strip; 1 (one) Each bid for 0 days Quantity: 60 {Each}Refi lls: 5Ordered: 2[facility] t: 2Comments: Please substitute prn. atorvastati Yes Take by Met hodi n (LIPITOR) 3-[address] 20 mg 00:00: Hospita tablet 00 l atorvastati 2021-0 Yes Take by Met hodi n (LIPITOR) [address] 20 mg 00:00: Hospita tablet 00 l atorvastati 2021-0 2021- No Take by [...] 00:00 Hospita tablet 00 :00 l atorvastati 2-0 2021- No Take by Me [facility] n (LIPITOR) [address] 20 mg 00:00: 00:00 Hospita tablet 00 :00 l atorvastati 2-0 2021- No Take by Me [facility] n (LIPITOR) [address] 20 mg 00:00: 00:00 Hospita tablet 00 :00 l atorvastati 2-0 2021- No Take by Me [facility] n (LIPITOR) [address] 20 mg 00:00: 00:00 Hospita tablet 00 :00 l atorvastati 2021- No Take by west n (LIPITOR) 3-[address] 20 mg 00:00: 00:00 Hospita tablet 00 :00 l metFORMIN 2020-04- No Medication 500mg Q.5D Take 1 [facility] (GLUCOPHAGE 0-15 - refill tablet by [facility] ) 500 mg 00:00: 23:59 mouth 2 tablet 00 :00 times daily (with meals) for 90 days. metFORMIN 2020-04- No Medication 500mg Q.5D Take 1 [facility] (GLUCOPHAGE 0-15 05-03 refill tablet by [facility] ) 500 mg 00:00: 23:59 mouth 2 tablet 00 :00 times daily (with meals) for 90 days. cephalexin 2020- No 500mg Q.[id number] Take 1 [facility] (KEFLEX) 01-02 [id number] capsule s t 500 MG 00:00: 04:59 3D (500 mg Hospita capsule 00 :00 total) by l mouth 3 (three) times a day for 7 days. cephalexin 2020- No 500mg Q.[id number] Take 1 [facility] (KEFLEX) 01-02 [id number] capsule s t 500 MG 00:00: 04:59 [...] -15 (Same as: l hydrochlori 14:00: Glucophage Guilel de 500 MG 00 XR) "Do Extended [...] tab, 0 Extended Refill(s), Release Pharmacy: [facility]t [place] [id number] [facility] 120 ACTUAT Yes 2 puff, [place] bet[place] Albuterol 15 INHALATION l 0.1 00:46: , QID, # 1 [place] MG/ACTUAT / 00 ea, 0 Ipratropium Refill(s), [place] [facility]: 0.02 [place] [id number] MG/ACTUAT [facility] Metered Dose Inhaler [Combivent 20/100] predniSONE Yes 20 mg = 1 Me moria 20 mg oral 15 tab, PO, l tablet 00:46: Daily, X 3 Keesha nn 00 day, # 3 tab, 0 Refill(s), Pharmacy: [place] [id number] [facility] Insulin No 60 units) [place] [facility] regular 01-02 WASTE: F/P l 21:18: - Black; E - [facility] Trash Bin Stable for 28 days at [...] l / 19:00: Duoneb) [place] Ipratropium 00 [place] 0.167 MG/ML Inhalant Solution Enoxaparin No Notes: Mem[facility] ia 01-02 (Same as: l 14:00: Lovenox) [place] 00 Ceftriaxone No Notes: [place] bet[place] 01-02 (Same As: l 14:00: Rocephin). [place] 00 Use with 100 mL NS and infuse over 30 min MEDICATION WASTE Product Size: 1000 mg Product Wasted: ___ mg Sodium No 25 mL, [facility] Chloride 01-02 Route: IV, l 0.9% IV 13:53: Start [place] 00 date: 01/03/16 8:53:00 CDT, Duration: 30 day, Stop date: 02/02/16 8:52:00 CDT, PRN Line Flush BD Normal No Notes: Memori a Saline 01-02 (Same as: l Flush 13:53: BD [place] 00 Posiflush) BD Normal No Notes: Memori a Saline 01-02 (Same as: l Flush 13:52: BD [place] 00 Posiflush) Albuterol No Notes: SEE Me [...] d) Saline No Notes: [facility] Flush 0.9% 9-14 (Same as: l 08:01: BD [place] 00 Posiflush) 200 ACTUAT No Notes: Mem[facility] Albuterol 830 (albuterol l 0.09 20:00: 90 [place] MG/ACTUAT [...] PO, l hydrochlori 19:05: BID, # 120 [place] de 500 MG 00 tab, 0 Extended Refill(s) Release Tablet Clindamycin No Notes: [place] bet[place] 8-30 (Same As: l 19:03: Cleocin) Tylenol No Notes: Do Memor ia 8-30 not exceed l 17:51: 4 gm/day. (Same as: Tylenol) Insulin No 60 units) [place] [facility] regular 12-18 WASTE: F/P l 13:02: - Black; E - [facility] Trash Bin Stable for 28 days at room temperatur e Expires in days from ____Date Dextrose No 25 gm, 50 [place] bet[place] 50% Syringe 8-30 mL, Route: l 13:02: IVP, Drug Form: INJ, Dosing Weight 78.7, kg, PRN, PRN Blood Glucose Results, Start date: 12/19/15 8:02:00 CDT, Duration: 30 day, Stop date: 01/18/16 8:01:00 CDT Glucagon No 1 mg, Memoria 30 Route: IM, l 13:02: Drug form: [place] 00 PDR/INJ, PRN, Dosing Weight 78.7, kg, [...] / 12-18 (Same as: l Hydrocodone 06:19: [place] Keesha nn Bitartrate 00 325/5) Do 5 MG Oral not exceed Tablet 4gm/day of [[place] acetaminop 5/325] hen. Insulin No Notes: [facility]oria regular 12-12 (Same as: l 05:07: Humulin R and NovoLIN R) WASTE: F/P - Black; E - [facility] (Do not shake) Ativan No 2 mg, Memoria 12-12 Route: PO, l 04:14: Drug form: [place] TAB, ONCE, Dosing Weight 93.182, kg, Priority: [...] 1,[address] [facility] [address] (GLUCOPHAGE 2-21 mg by Luhenry ) 1000 MG 22:30: mouth 2 Medic al tablet 26 (two) Center times daily with breakfast and dinner. Immunizations Ordered Filled Date Status Comments Source Immunization Name Immunization Name Pneumococcal 2022-04-19 Completed [facility] 20-valent Conjugate 00:00:00 [facility] Vaccine FLUCELVAX QUAD PF 2022-04-[address] [facility] Pneumococcal 2022-04-19 Completed [facility] 20-valent Conjugate 00:00:00 [facility] Vaccine FLUCELVAX QUAD PF 2022-04-[address] 00:00:00 Hospital Pneumococcal 2022-04-19 Completed [facility] 20-valent Conjugate 00:00:00 [facility] Vaccine FLUCELVAX QUAD PF 2022-04-[address] 00:00:00 [facility] Pneumococcal 2022-04-19 Completed [facility] 20-valent Conjugate 00:00:00 Hospi am[facility] Vaccine FLUCELVAX QUAD 2022-04-[address] 00:00:00 [facility] Pneumococcal 2022-04-19 Completed [facility] 20-valent Conjugate 00:00:00 [facility] Vaccine FLUCELVAX QUAD 2022-04-[address] 00:00:00 [facility] Pneumococcal 2022-04-19 Completed [facility] 20-valent Conjugate 00:00:00 [facility] Vaccine FLUCELVAX QUAD 2022-04-[address] 00:00:00 [facility] Pneumococcal 2022-04-19 Completed [facility] 20-valent Conjugate 00:00:00 [facility] Vaccine FLUCELVAX QUAD 2022-04-[address] 00:00:00 Hospital Pneumococcal 2022-04-19 Completed [facility] 20-valent Conjugate 00:00:00 [facility] Vaccine FLUCELVAX QUAD PF 2022-04-[address] 00:00:00 Hospital Pneumococcal 2022-04-19 Completed [facility] 20-valent Conjugate 00:00:00 [facility] Vaccine FLUCELVAX QUAD PF 2022-04-[address] 00:00:00 Hospital Pneumococcal 2022-04-19 Completed [facility] 20-valent Conjugate 00:00:00 [facility] Vaccine FLUCELVAX QUAD PF 2022-04-[address] 00:00:00 [facility] TDAP 2021-09-30 Completed [facility] 00[facility] TD 2021-09-30 Completed [facility] 00:00:00 [facility] TD 2021-09-30 Completed [facility] 00:00:00 [facility] TDAP 2021-09-30 Completed [facility] 00:00:00 [facility] TDAP 2021-09-30 Completed [facility] 00:00:00 [facility] TDAP 2021-09-30 Completed [facility] 00:00:00 [facility] TDAP 2021-09-30 Completed [facility] 00:00:00 [facility] TDAP 2021-09-30 Completed [facility] 00:00:00 [facility] TDAP 2021-09-30 Completed [facility] 00:00:00 [facility] TD 2021-09-30 Completed [facility] 00:00:00 [facility] TDAP 2021-09-30 Completed [facility] 00:00:00 [facility] TDAP 2021-09-30 Completed [facility] 00:00:00 [facility] TD 2021-09-30 Completed [facility] 00:00:00 [facility] TDAP 2021-09-30 Completed [facility] 00:00:00 [facility] TDAP 2021-09-30 Completed [facility] 00:00:00 [facility] TD 2021-09-30 Completed [facility] 00:00:00 [facility] TD 2016-12-31 Completed [facility] 00:00:00 [facility] TD 2016-12-31 Completed [facility] 00:00:00 [facility] TD 2016-12-31 Completed [facility] 00:00:00 [facility] TD 2016-12-31 Completed [facility] 00:00:00 [facility] TDAP 2016-12-31 Completed [facility] 00:00:00 [facility] TDAP 2016-12-31 Completed [facility] 00:00:00 [facility] TDAP 2016-12-31 Completed [facility] 00:00:00 [facility] TD 2016-12-31 Completed [facility] 00:00:00 [facility] TDAP 2016-12-31 Completed [facility] 00:00:00 [facility] TDAP 2016-12-31 Completed [facility] 00:00:00 [facility] TDAP 2016-12-31 Completed [facility] 00:00:00 [facility] TDAP 2016-12-31 Completed [facility] 00:00:00 [facility] TDAP 2016-12-31 Completed [facility] 00:00:00 [facility] TDAP 2016-12-31 Completed [facility] 00:00:00 [facility] TDAP 2016-12-31 Completed [facility] 00:00:00 [facility] TDAP 2016-12-31 Completed [facility] 00:00:00 [facility] pneumococcal 2016-01-04 Completed [facility] mckeon 23-valent vaccine 01:30:00 influenza virus 2016-01-04 Completed [facility] [place] vaccine, 01:26:00 inactivated Pneumococcal Unknown Completed [facility]ent [facility] Vacc[facility] FLUCELVAX QUAD PF Unknown Completed [facility] Vital Signs Vital Name Observation Time Observation Value Comments Source Systolic blood 2022-12-16 95 mm[Hg] [facility] pressure 18:13:00 [facility] Diastolic blood 2022-12-16 61 mm[Hg] University o f pressure 18:13:00 [facility] Heart rate 2022-12-16 61 /min [facility] 18:13:00 [facility] Body temperature 2022-12-16 36.33 Jaqueline [facility] 18:13:00 [facility] Respiratory rate 2022-12-16 20 /min [facility] 18:13:00 [facility] Body weight 2022-12-16 86.183 kg [facility] 18:13:00 [facility] BMI 2022-12-16 57.98 kg/m2 University [facility] 18:13:00 [facility] Oxygen saturation 2022-12-16 91 /min [facility] in Arterial blood 18:13:00 [facility] Pulse oximetry [place] Systolic blood 2022-11-06 96 mm[Hg] [facility] pressure 18:56:00 [facility] Diastolic blood 2022-11-06 65 mm[Hg] University o f pressure 18:56:00 [facility] Heart rate 2022-11-06 56 /min [facility] 18:56:00 [facility] Respiratory rate 2022-11-06 18 /min [facility] 18:56:00 [facility] Body height 2022-11-06 121.9 cm University [facility] 18:56:00 [facility] Systolic blood 2022-11-06 96 mm[Hg] University of pressure 18:21:00 [facility] Diastolic blood 2022-11-06 56 mm[Hg] University o f pressure 18:21:00 [facility] Heart rate 2022-11-06 56 /min [facility] 18:21:00 [facility] Respiratory rate 2022-11-06 18 /min [facility] 18:21:00 [facility] Body height 2022-11-06 121.9 cm [facility] 18:21:00 [facility] Body weight 2022-11-06 86.183 kg [facility] 18:21:00 [facility] BMI 2022-11-06 57.98 kg/m2 [facility] 18:21:00 [facility] Oxygen saturation 2022-11-06 96 /min [facility] in Arterial blood 18:21:00 [facility] by Pulse oximetry Branch Systolic blood 2022-09-13 113 mm[Hg] [facility] pressure 03:30:00 [facility] Diastolic blood 2022-09-13 59 mm[Hg] [facility] f pressure 03:30:00 [facility] Heart rate 2022-09-13 62 /min [facility] 03:30:00 [facility] Respiratory rate 2022-09-13 17 /min [facility] 03:30:00 [facility] Oxygen saturation 2022-09-13 96 /min [facility] in Arterial blood 03[facility]30:00 [facility] [facility] Pulse oximetry [place] Body temperature 2022-09-13 37.11 Jaqueline University of 02:29:00 [facility] Body height 2022-09-13 121.9 cm University of 02:29:00 [facility] Body weight 2022-09-13 87.544 kg University of 02:29:00 [facility] BMI 2022-09-13 58.89 kg/m2 University of 02:29:00 [facility] Systolic blood 2022-09-12 100 mm[Hg] University of pressure 18:47:00 [facility] Diastolic blood 2022-09-12 67 mm[Hg] University o f pressure 18:47:00 [facility] Heart rate 2022-09-12 58 /min University of 18:47:00 [facility] Body temperature 2022-09-12 36.17 Jaqueline University of 18:47:00 [facility] Body weight 2022-09-12 87.544 kg University of 18:47:00 [facility] BMI 2022-09-12 58.89 kg/m2 University of 18:47:00 [facility] Oxygen saturation 2022-09-12 97 /min University of in Arterial blood 18:47:00 [place] [facility] Pulse oxim[facility] Systolic blood 2022-08-14 122 mm[Hg] University of pressure 07:31:00 [facility] Diastolic blood 2022-08-14 55 mm[Hg] University o f pressure 07:31:00 [facility] Heart rate 2022-08-14 55 /min University of 07:31:00 [facility] Respiratory rate 2022-08-14 15 /min University of 07:31:00 [facility] Oxygen saturation 2022-08-14 94 /min University of in Arterial blood 07:31:00 [facility] dilshad by Pulse oximetry Branch Body temperature 2022-08-14 37 Jaqueline University of 05:10:00 [facility] Body height 2022-08-14 121.9 cm "without my University of 05:10:00 legs" [facility] Body weight 2022-08-14 81.647 kg University of 05:10:00 [facility] BMI 2022-08-14 54.93 kg/m2 University of 05:10:00 [facility] Systolic blood 2022-08-05 175 mm[Hg] University of pressure 18:25:00 [facility] Diastolic blood 2022-08-05 71 mm[Hg] University o f pressure 18:25:00 [facility] Heart rate 2022-08-05 60 /min University of 18:24:00 [facility] Body temperature 2022-08-05 36.67 Jaqueline University of 18:24:00 [facility] Respiratory rate 2022-08-05 18 /min University of 18:24:00 [facility] Body height 2022-08-05 121.9 cm University of 18:24:00 [facility] Oxygen saturation 2022-08-05 100 /min University of in Arterial blood 18:24:00 [place] [facility] Pulse oxim[facility] Systolic blood 2022-07-31 130 mm[Hg] University of pressure 21:05:00 [facility] Diastolic blood 2022-07-31 47 mm[Hg] University o f pressure 21:05:00 [facility] Heart rate 2022-07-31 61 /min University of 21:05:00 [facility] Body temperature 2022-07-31 36.83 Jaqueline University of 21:05:00 [facility] Respiratory rate 2022-07-31 16 /min [facility] 21:05:00 [facility] Oxygen saturation 2022-07-31 99 /min [facility] in Arterial blood 21:05:00 [facility] by Pulse oximetry Branch Body height 2022-07-29 121.9 cm BKA [facility] 15:00:00 [facility] Body weight 2022-07-28 92 kg [facility] 07:00:00 [facility] BMI 2022-07-28 61.89 kg/m2 [facility] 07:00:00 [facility] Systolic blood 2022-07-19 116 mm[Hg] University of pressure 06:20:00 [facility] Diastolic blood 2022-07-19 82 mm[Hg] [place] o f pressure 06:20:00 [facility] Heart rate 2022-07-19 54 /min [facility] 06:20:00 [facility] Body temperature 2022-07-19 36.5 Jaqueline [facility] 06:20:00 [facility] Respiratory rate 2022-07-19 16 /min [facility] 06:20:00 [facility] Oxygen saturation 2022-07-19 95 /min [facility] in Arterial blood 06:20:00 [facility] by Pulse oximetry [place] Body height 2022-07-19 121.9 cm [facility] 02:38:00 [facility] Body weight 2022-07-19 79.379 kg [facility] 02:38:00 [facility] BMI 2022-07-19 53.40 kg/m2 [facility] 02:38:00 [facility] Temperature 2021-06-29 97 [degF] Method: Oral [id number] 8 13:17:12 3.4.2 Pulse 2021-06-29 77 /min Pattern: [id number] 8 13:17:12 Regular 3.4.2 Respiration Rate 2021-06-29 18 /min Pattern: [id number]. [id number] 13:17:12 Unlabored 3.4.2 BP Systolic 2021-06-29 139 mm[Hg] Patient [id number] 8 13:17:12 Position: 3.4.2 Sitting; Cuff Location: Left Arm; Cuff Size: Standard BP Diastolic 2021-06-29 82 mm[Hg] Patient [id number] 8 13:17:12 Position: 3.4.2 Sitting; Cuff Location: Left Arm; Cuff Size: Standard Systolic blood 2022-07-03 122 mm[Hg] [facility] pressure 17:14:00 [facility] Diastolic blood 2022-07-03 57 mm[Hg] [facility] pressure 17:14:00 Hospital Heart rate 2022-07-03 64 /min [facility] 17:14:00 Hospital Body temperature 2022-07-03 37 Jaqueline [facility] 16:20:31 Hospital Respiratory rate 2022-07-03 21 /min [facility] 16:20:31 Hospital Oxygen saturation 2022-07-03 98 /min [facility] in Arterial blood 16:20:31 [facility]xim[facility] Body height 2022-06-29 170.2 cm [facility] 02:00:00 Hospital Body weight 2022-06-28 81.149 kg [facility] 12:00:00 Hospital BMI 2022-06-28 28.02 kg/m2 [facility] 12:00:00 Hospital Systolic blood 2021-12-14 140 mm[Hg] [facility] pressure 16:16:14 Hospital Diastolic blood 2021-12-14 72 mm[Hg] [facility] pressure 16:16:14 Hospital Heart rate 2021-12-14 74 /min [facility] 16:16:14 Hospital Body temperature 2021-12-14 36.22 Jaqueline [facility] 16:16:14 Hospital Respiratory rate 2021-12-14 20 /min [facility] 16:16:14 Hospital Oxygen saturation 2021-12-14 100 /min [facility] in Arterial blood 16:16:14 [facility]xim[facility] Body height 2021-12-11 170.2 cm [facility] 22:35:00 Hospital Body weight 2021-12-11 88.451 kg [facility] 22:35:00 Hospital BMI 2021-12-11 30.54 kg/m2 [facility] 22:35:00 Hospital Systolic blood 2021-02-02 153 mm[Hg] [facility] pressure 16:00:00 Diastolic blood 2021-02-02 79 mm[Hg] [facility] 16:[facility]00 Heart rate 2021-02-02 84 /min [facility] 16:00:00 Body temperature 2021-02-02 36.67 Jaqueline [facility] 16:00:00 Respiratory rate 2021-02-02 18 /min [facility] 16:00:00 Oxygen saturation 2021-02-02 97 /min [facility] in Arterial blood 16:00:00 by Pulse oximetry Body height 2021-02-02 177.8 cm [facility] 14:44:00 Body weight 2021-02-02 81.647 kg [facility] 14:44:00 BMI 2021-02-02 25.83 kg/m2 [facility] 14:44:00 Temperature Oral 2016-02-16 98 [facility] 02:05:00 Respitory Rate 2016-02-16 [facility] [...] He rmann 03:44:00 Diastolic (mm Hg) 2015-12-13 Ronni Jamil ermann 03:44:00 Respitory Rate 2015-12-13 Ronni Bach richie 03:44:00 Heart Rate 2015-12-13 Ronni Juarez n 03:44:00 Temperature Oral 2015-12-13 98.8 F [facility] Codey rmann (F) 03:44:00 Procedures Procedure Date / Time Performing Clinician Source Performed REFERRAL- 2022-12-24 05:01:00 Doctor Unassigned, No [facility] REQUEST/RESPONSE Name [facility] FREE T4 2022-12-16 18:56:00 Kain [facility] o f [facility] THYROID STIMULATING 2022-12-16 18:56:00 Alexandra Finnegan [facility] HORMONE [facility] COMP. METABOLIC PANEL 2022-12-16 18:56:00 Alexandra Finnegan [facility] ([id number]) [facility] LIPID PANEL ([id number])(TOTAL 2022-12-16 18:56:00 [facility] CHOLESTER[facility], [facility] TRIGLYCERIDES, HDL) CBC WITH DIFF 2022-12-16 18:56:00 Kain Alexandra [place] o f [facility] GLYCOSYLATED HEMOGLOBIN 2022-12-16 18:56:00 Alexandra Finnegan [facility] (A1C) [facility] INSURANCE CORRESPONDENCE 2022-11-08 05:01:00 Doctor Unassigned, No General acute hospital HOME HEALTH - OTHER 2022-09-25 05:01:00 Doctor Unassigned, No [facility] [place] Name [facility] EKG-12 LEAD 2022-09-13 03:45:38 Hui Paez [facility] BASIC METABOLIC PANEL 2022-09-13 02:46:00 Hui Paez [facility] (NA, K, CL, CO2, GLUCOSE, Medica l Branch BUN, CREATININE, CA) CONSENT/REFUSAL FOR 2022-09-13 02:24:56 Doctor Unassigned, No [facility] [place] DI[facility]NOSIS AND TREATMENT [facility] XR LUMBAR SPINE 5 VW 2022-09-12 20:57:55 Alexandra Finnegan [facility] XR HIPS 3 VW LEFT 2022-09-12 20:57:55 Alexandra Finnegan [facility] PROSTATIC SPECIFIC 2022-09-12 19:52:00 Kain [facility] ANTIGEN [facility] FREE T4 2022-09-12 19:52:00 Kain [facility] THYROID STIMULATING 2022-09-12 19:52:00 Alexandra Finnegan [facility] HORMONE [facility] COMP. METABOLIC PANEL 2022-09-12 19:52:00 Alexandra Finnegan [facility] ([id number]) [facility] LIPID PANEL ([id number])(TOTAL 2022-09-12 19:52:00 Alexandra Finnegan [facility] CHOLESTEROL, [facility] TRIGLYCERIDES, HDL) CBC WITH DIFF 2022-09-12 19:52:00 Kain [facility] GLYCOSYLATED HEMOGLOBIN 2022-09-12 19:52:00 Kain Alexandra [facility] (A1C) Medical [place] URINALYSIS 2022-09-12 19:52:00 Kain [facility] DME/SUPPLY JUSTIFICATION 2022-09-04 05:01:00 Doctor Unassigned, No General acute hospital HOME HEALTH - OTHER 2022-08-26 05:01:00 [facility], [facility] (AUTOMATED) 2022-08-14 07:28:00 Les Ellsworth [facility] URINE DRUG (IMMUNOASSAY) 2022-08-14 06:10:00 Les Ellsworth [facility] - COMPREHENSIVE DRUG [facility] SCREEN URINALYSIS 2022-08-14 06:10:00 Les Ellsworth [facility] BASIC METABOLIC PANEL 2022-08-14 05:43:00 Les Ellsworth [facility] (NA, K, CL, CO2, GLUCOSE, Medica l Branch BUN, CREATININE, CA) CBC WITH DIFF 2022-08-14 05:43:00 Les Ellsworth [facility] LACTIC ACID WHOLE BLOOD 2022-08-14 05:43:00 Les Ellsworth [facility] CONSENT/REFUSAL FOR 2022-08-14 05:01:57 Doctor Unassigned, No [facility] [place] [facility]REAT[facility] DNR 2022-08-07 05:01:00 Doctor Unassigned, No [facility] HOME HEALTH 485 2022-08-02 05:01:00 Doctor Unassigned, No [facility]iver [facility] POCT GLUCOSE (AUTOMATED) 2022-07-31 22:26:00 Mayo, Malik [facility]SE (AUTOMATED) 2022-07-31 17:13:00 Mayo, Malik [facility] POCT GLUCOSE (AUTOMATED) 2022-07-31 01:46:00 Mayo, Malik [facility] POCT GLUCOSE (AUTOMATED) 2022-07-30 23:16:00 Mayo, Malik [facility] POCT GLUCOSE (AUTOMATED) 2022-07-30 18:42:00 Mayo Malik [facility] POCT GLUCOSE (AUTOMATED) 2022-07-30 14:18:00 Malik Mayo [facility] MAGNESIUM 2022-07-30 10:58:00 Kelsey [facility] BASIC METABOLIC PANEL 2022-07-30 10:58:00 Kelsey [facility] (NA, K, CL, CO2, GLUCOSE, Medica l Branch BUN, CREATININE, CA) CBC WITH DIFF 2022-07-30 10:58:00 Kelsey [facility] POCT GLUCOSE (AUTOMATED) 2022-07-30 01:36:00 Malik Mayo [facility] POCT GLUCOSE (AUTOMATED) 2022-07-29 22:43:00 MayoMalik [facility] POCT GLUCOSE (AUTOMATED) 2022-07-29 18:35:00 Gael [facility] IRON PANEL 2022-07-29 17:06:00 Kelsey [facility] CT ANGIOGRAM LOWER 2022-07-29 16:36:24 Yordy Thornton [facility] EXTREMITY LEFT W CONTRAST Medica l Branch ACTIVATED PARTIAL 2022-07-29 13:53:00 Yordy Thornton Univ ersity [facility] POCT GLUCOSE (AUTOMATED) 2022-07-29 13:45:00 Malik Mayo [facility] MAGNESIUM 2022-07-29 10:36:00 [facility] 2022-07-29 10:36:00 Kelsey [facility] HEPATIC FUNCTION PANEL 2022-07-29 10:36:00 Slim [facility] ([id number]) (ALB,T.PRO,BILI Medical Branch T,BU/BC,ALT,AST,ALK PHOS) BASIC METABOLIC PANEL 2022-07-29 10:36:00 Slim [facility] (NA, K, CL, CO2, GLUCOSE, Medica l Branch BUN, CREATININE, CA) CBC WITH DIFF 2022-07-29 10:36:00 [facility] ACTIVATED PARTIAL 2022-07-29 07:13:00 Yordy Thornton [facility] URINALYSIS 2022-07-29 01:44:00 Darius [facility] CREATININE, URINE RANDOM 2022-07-29 01:44:00 Darius [facility] UREA NITROGEN, URINE 2022-07-29 01:44:00 Darius [facility] SODIUM, URINE RANDOM 2022-07-29 01:44:00 Darius [facility] POCT GLUCOSE (AUTOMATED) 2022-07-29 01:17:00 Malik Mayo [facility] POCT GLUCOSE (AUTOMATED) 2022-07-28 21:09:00 Brennan Love [facility] BASIC METABOLIC PANEL 2022-07-28 19:01:00 Demetrice Sanchez [facility] (NA, K, CL, CO2, GLUCOSE, Medica l Branch BUN, CREATININE, CA) ACTIVATED PARTIAL 2022-07-28 19:01:00 Yordy Thornton [facility] POCT GLUCOSE (AUTOMATED) 2022-07-28 17:12:00 Brennan Love [facility] BASIC METABOLIC PANEL 2022-07-28 14:28:00 Demetrice Sanchez [facility] (NA, K, CL, CO2, GLUCOSE, Medica l Branch BUN, CREATININE, CA) ACTIVATED PARTIAL 2022-07-28 14:28:00 Yordy Thornton [facility] POCT GLUCOSE (AUTOMATED) 2022-07-28 12:52:00 Brennan Love [facility] HB ECG ROUTINE & RHYTHM 2022-07-28 10:09:24 Scooter Barroso [facility] CREATINE KINASE 2022-07-28 08:02:00 Yordy Thornton [facility] C-REACTIVE PROTEIN 2022-07-28 08:02:00 Yordy Thornton [facility] COMP. METABOLIC PANEL 2022-07-28 08:02:00 Yordy Thornton [facility] ([id number]) [facility] VANCOMYCIN RANDOM LEVEL 2022-07-28 08:02:00 Yordy Thornton [facility] SEDIMENTATION RATE 2022-07-28 08:02:00 Yordy Thornton [facility] CBC WITH DIFF 2022-07-28 08:02:00 Yordy Thornton [facility] GLYCOSYLATED HEMOGLOBIN 2022-07-28 08:02:00 Yordy Thornton [facility] (A1C) [facility] PROTHROMBIN TIME / INR 2022-07-28 08:02:00 Yordy Thornton [facility] ACTIVATED PARTIAL 2022-07-28 08:02:00 Yordy Thornton [facility] MRSA / MSSA SCREEN BY 2022-07-28 08:02:00 Yordy Thornton [facility] PO[facility]UCOSE (AUTOMATED) 2022-07-28 08:01:00 Brennan Love [facility] COMP. METABOLIC PANEL 2022-07-19 02:58:00 Adolfo Hurley [facility] ([id number]) Medical Branch CBC WITH DIFF 2022-07-19 02:58:00 Adolfo Hurley [facility] NOTICE OF PRIVACY 2022-07-19 02:27:02 Doctor Unassigned, No Univ [facility]ACT[facility] Name Medical Branch CONSENT/REFUSAL FOR 2022-07-19 02:25:51 Doctor Un[facility]igned, No [facility] Name Medical Branch POC GLUCOSE 2022-07-03 16:21:00 Naif Cartagena spital POC GLUCOSE 2022-07-03 12:18:00 Naif Cartagena spital POC GLUCOSE 2022-07-03 01:29:00 Naif Cartagena spital POC GLUCOSE 2022-07-02 21:46:00 Naif Cartagena spital POC GLUCOSE 2022-07-02 16:16:00 Naif Cartagena Ho spital POC GLUCOSE 2022-07-02 12:16:00 Naif Cartagena Ho spital BASIC METABOLIC PANEL 2022-07-02 10:11:00 Nelda [facility] ESTIMATED GFR 2022-07-02 10:11:00 [facility] spital POC GLUCOSE 2022-07-02 01:23:00 Francesca Stevens spital POC GLUCOSE 2022-07-01 21:46:00 Francesca Stevens spital XR CHEST 1 VW PORTABLE 2022-07-01 20:15:43 [facility] 2022-07-01 20:09:45 Autumn Martinez [facility] POC GLUCOSE 2022-07-01 16:17:00 Francesca Stevens spital CARBAPENEMASE GENES 2022-07-01 16:15:00 [facility] 2022-07-01 12:23:00 Francesca Stevens spital VANCOMYCIN LEVEL, RANDOM 2022-07-01 11:14:00 Wilberto Joe [facility] POC GLUCOSE 2022-07-01 01:24:00 Younis, Francesca [facility] spital POC GLUCOSE 2022-06-30 22:08:00 Francesca Stevens [facility] spital POC GLUCOSE 2022-06-30 16:12:00 Francesca Stevens Ho spital CARBAPENEMASE GENES 2022-06-30 15:00:00 [facility] POC GLUCOSE 2022-06-30 12:23:00 Francesca Stevens Ho spital BASIC METABOLIC PANEL 2022-06-30 11:31:00 [facility] WITH PLATELET AND 2022-06-30 11:31:00 Hilda [facility] DIFFERENTIAL ESTIMATED GFR 2022-06-30 11:31:00 Francesca Stevens Ho spital POC GLUCOSE 2022-06-30 01:47:00 Francesca Stevens [facility] spital POC GLUCOSE 2022-06-29 22:47:00 Franecsca Stevens [facility] spital POC GLUCOSE 2022-06-29 17:19:00 Francesca Stevens [facility] spital POC GLUCOSE 2022-06-29 13:13:00 YounFrancesca mathew [facility] spital POC GLUCOSE 2022-06-29 02:41:00 YounFrancesca mathew [facility] spital POC GLUCOSE 2022-06-28 22:40:00 Francesca Stevens [facility] spital POC GLUCOSE 2022-06-28 17:47:00 Francesca Stevens [facility] spital POC GLUCOSE 2022-06-28 13:30:00 Francesca Stevens [facility] spital BASIC METABOLIC PANEL 2022-06-28 12:11:00 [facility] 2022-06-28 12:11:00 Francesca Stevens [facility] spital POC GLUCOSE 2022-06-28 02:28:00 Francesca Stevens [facility] spital POC GLUCOSE 2022-06-27 22:12:00 Ubaldo Stevensa [facility] spital POC GLUCOSE 2022-06-27 17:26:00 Francesca Stevens [facility] spital POC GLUCOSE 2022-06-27 13:29:00 Ubaldo Stevensa [facility] spital POC GLUCOSE 2022-06-27 02:09:00 Francesca Stevens Ho spital POC GLUCOSE 2022-06-26 23:37:00 YounFrancesca mathew Ho spital FUNGUS CULTURE 2022-06-26 23:17:00 Cassidyko, Davin Faulkner Ho spital AF[employer] CULTURE 2022-06-26 23:17:00 Aaron, Davin Faulkner spital GRAM STAIN 2022-06-26 23:17:00 Cassidyko, Davin Faulkner Ho spital [employer] STAIN 2022-06-26 23:17:00 Cassidyko, Davin Faulkner Ho spital [employer] CULTURE 2022-06-26 23:09:00 Cassidyko, Davin Faulkner spital FUNGUS SMEAR 2022-06-26 23:09:00 Aaron, Davin Faulkner spital [employer] STAIN 2022-06-26 23:09:00 Cassidy, Davin Faulkner spital FUNGUS CULTURE 2022-06-26 23:09:00 Aaron, [facility] spital AK AN ELECTIVE 2022-06-26 22:52:00 Jonathan Danielle [facility] SUPRAGLOTTIC AIRWAY DEBRIDEMENT, LOWER 2022-06-26 22:30:00 [facility] EXTREMITY ANAEROBIC CULTURE 2022-06-26 22:17:00 [facility] AEROBIC CULTURE 2022-06-26 22:17:00 Cassidy, [facility] Alev[facility] Ho spital TISSUE CULTURE 2022-06-26 22:09:00 [facility] spital ANAEROBIC CULTURE 2022-06-26 22:09:00 [facility] POC GLUCOSE 2022-06-26 21:46:00 Francesca Stevens Ho spital POC GLUCOSE 2022-06-26 18:45:00 Francesca Stevens spital VANCOMYCIN LEVEL, RANDOM 2022-06-26 15:33:00 [facility] POC GLUCOSE 2022-06-26 14:15:00 Francesca Stevens spital CBC WITH PLATELET AND 2022-06-26 11:43:00 [facility] DIFFERENTIAL BASIC METABOLIC PANEL 2022-06-26 11:43:00 Brian Powell [facility] MAGNESIUM LEVEL 2022-06-26 11:43:00 [facility] PROTHROMBIN TIME WITH INR 2022-06-26 11:43:00 Louisa Escobar [facility] ESTIMATED GFR 2022-06-26 11:43:00 Brian Powell [facility] POC GLUCOSE 2022-06-26 02:46:00 Francesca Stevens spital LACTIC ACID LEVEL, SEPSIS 2022-06-26 02:02:00 [facility] - NOW AND REPEAT 2X EVERY 3 HOURS POC GLUCOSE 2022-06-25 22:12:00 Francesca Stevens spital LACTIC ACID LEVEL, SEPSIS 2022-06-25 22:06:00 Brian Powell [facility] - NOW AND REPEAT 2X EVERY 3 HOURS ECG 12-LEAD 2022-06-25 19:43:10 Brian Powell [facility] INFLUENZA ANTIGEN TEST, 2022-06-25 19:18:00 [facility] REFLEX NEGATIVE TO RPP RESPIRATORY PATHOGEN 2022-06-25 19:18:00 [facility] PANEL WITH COVID-19 RT-PCR METHICILLIN-RESISTANT 2022-06-25 19:15:00 Brian Powell [facility] STAPHYLOCOCCUS AUREUS (MRSA), LEILANI LACTIC ACID LEVEL, SEPSIS 2022-06-25 19:01:00 Brian Powell [facility] - NOW AND REPEAT 2X EVERY 3 HOURS XR CHEST 1 VW PORTABLE 2022-06-25 18:53:03 [facility] XR FEMUR 2 VW LEFT 2022-06-25 18:52:28 Brian Powell [facility] BLOOD CULTURE, AEROBIC & 2022-06-25 18:05:00 [facility] ANAEROBIC BLOOD CULTURE, AEROBIC & 2022-06-25 18:00:00 [facility] ANAEROBIC CBC WITH PLATELET AND 2022-06-25 17:56:00 [facility] DIFFERENTIAL COMPREHENSIVE METABOLIC 2022-06-25 17:56:00 [facility] PANEL PROTHROMBIN TIME WITH INR 2022-06-25 17:56:00 [facility] ESTIMATED GFR 2022-06-25 17:56:00 [facility] MAGNESIUM LEVEL 2022-06-25 17:56:00 [facility] POC GLUCOSE 2022-06-25 17:06:00 Francesca Stevens [facility] spital POC GLUCOSE 2022-05-14 17:15[facility]00 [facility] 2022-05-14 16:30:00 Padmini [facility] SKILL,DX OR RX POC GLUCOSE 2022-05-14 13:17:00 [facility] CBC WITH PLATELET AND 2022-05-14 11:43:00 [facility]FFER[facility] BASIC METABOLIC PANEL 2022-05-14 11:43:00 [facility] ESTIMATED GFR 2022-05-14 11:43:00 [facility] POC GLUCOSE 2022-05-14 02:36:00 [facility]inderFormerly [facility] POC GLUCOSE 2022-05-13 22:14:00 [facility]inder[facility]ly [facility] POC GLUCOSE 2022-05-13 17:21:00 [facility]inderFormerly [facility] POC GLUCOSE 2022-05-13 13:25:00 [facility] CBC WITH PLATELET AND 2022-05-13 11:23:00 [facility] DIFFERENTIAL BASIC METABOLIC PANEL 2022-05-13 11:23:00 [facility] ESTIMATED GFR 2022-05-13 11:23:00 [facility]inder[facility]ly [facility] POC GLUCOSE 2022-05-13 02:26:00 [facility]inderFormerly [facility] POC GLUCOSE 2022 22:54:00 [facility]inderFormerly [facility] POC GLUCOSE 2022 17:23:00 Harinder, [facility] POC GLUCOSE 2022 13:33:00 Harinder, [place] [facility] CBC WITH PLATELET AND 2022 10:15:00 [facility]FFER[facility] BASIC METABOLIC PANEL 2022 10:15:00 [facility] ESTIMATED GFR 2022 10:15:00 Harinder, [facility] POC GLUCOSE 2022 03:36:00 Harinder, [facility] POC GLUCOSE 2022-05-11 22:17:00 HarinderFormerly [facility] BLOOD CULTURE, AEROBIC & 2022-05-11 21:45:00 [facility] ANAEROBIC BLOOD CULTURE, AEROBIC & 2022-05-11 21:28:00 [facility] ANAEROBIC POC GLUCOSE 2022-05-11 17:11:00 Harinder, [facility] POC GLUCOSE 2022-05-11 13:14:00 Harinder, [facility] CBC WITH PLATELET AND 2022-05-11 10:35:00 Harinder, [facility] DIFFERENTIAL BASIC METABOLIC PANEL 2022-05-11 10:35:00 [facility] ESTIMATED GFR 2022-05-11 10:35:00 HarinderFormerly [facility] POC GLUCOSE 2022-05-11 02:33:00 Harinder, [facility] POC GLUCOSE 2022-05-10 22:49:00 [facility]LOOD [facility]ULT[facility], AEROBIC & 2022-05-10 22:13:00 [facility] ANAEROBIC HC NERVE BLOCK INJ 2022-05-10 19:31:21 Swapna [facility] FEMORAL SINGLE W IMG GUID HC ANESTH SCIATIC NERVE 2022-05-10 19:23:41 Swapna [facility] POC GLUCOSE 2022-05-10 18:34:00 Harinder, [facility] SURGICAL PATHOLOGY 2022-05-10 18:13:00 [facility] REQUEST AK AN ELECTIVE 2022-05-10 17:24:00 Mari Gamboa [facility] SUPRAGLOTTIC AIRWAY AMPUTATION, BELOW KNEE 2022-05-10 16:57:00 Davin Walker [facility] POC GLUCOSE 2022-05-10 15:58:00 [facility] TTE COMPLETE, WO 2022-05-10 14:38:42 [facility] CONTR[facility], W DOPPLER ([id number]) POC GLUCOSE 2022-05-10 13:14:00 [facility] CBC WITH PLATELET AND 2022-05-10 12:19:00 [facility] DIFFERENTIAL BASIC METABOLIC PANEL 2022-05-10 12:19:00 [facility] PARTIAL THROMBOPLASTIN 2022-05-10 12:19:00 [facility] TIME (PTT[facility] PROTHROMBIN TIME WITH INR 2022-05-10 12:19:[address] [facility] [place] ESTIMATED GFR 2022-05-10 12:19:00 [facility] POC GLUCOSE 2022-05-10 03:02:00 [facility] POC GLUCOSE 2022-05-09 22:30:00 [facility] POC GLUCOSE 2022-05-09 18:05:00 [facility] US ANKLE BRACHIAL INDEX 2022-05-09 17:33:01 Gail West [facility] Gajonera VANCOMYCIN LEVEL, RANDOM 2022-05-09 16:42:00 Kenneth Farr [facility] POC GLUCOSE 2022-05-09 13:14:00 [facility] CBC WITH PLATELET AND 2022-05-09 11:25:00 Gail West [facility] DIFFERENTIAL Gajonera MAGNESIUM LEVEL 2022-05-09 11:25:00 [facility]intan COMPREHENSIVE METABOLIC 2022-05-09 11:25:00 Gail West [facility] PANEL Gajosierra t[place]a ESTIMATED GFR 2022-05-09 11:25:00 [facility] MANUAL DIFFERENTIAL 2022-05-09 11:25:00 Gail West [facility] POC GLUCOSE 2022-05-09 02:55:00 Noman Brewer Ho castal MRI FOOT WO CONTRAST LEFT 2022-05-09 02:37:17 TobineGail keenan [facility] POC GLUCOSE 2022-05-08 22:46:00 Noman Brewer spital COVID-19 QUALITATIVE 2022-05-08 22:35:00 [facility] RT-PCR Scooter XR FOOT 3+ VW LEFT 2022-05-08 19:44:29 [facility] BLOOD CULTURE, AEROBIC & 2022-05-08 19:34:00 [facility] ANAEROBIC Scooter CBC WITH PLATELET AND 2022-05-08 19:34:00 [facility] DIFFERENTIAL Scooter COMPREHENSIVE METABOLIC 2022-05-08 19:34:00 [facility] PANEL Scooter C-REACTIVE PROTEIN 2022-05-08 19:34:00 [facility] Scooter SEDIMENTATION RATE 2022-05-08 19:34:00 [facility] ESTIMATED GFR 2022-05-08 19:34:00 [facility] MANUAL DIFFERENTIAL 2022-05-08 19:34:00 [facility] Scooter POC GLUCOSE 2022-05-08 18:06:00 [facility] ospital Scooter POC GLUCOSE 2022-04-19 22:41:00 July García ospital CV TRANSESOPHAGEAL 2022-04-19 20:35:00 Sharon Mcmillan [facility] ECHOCARDIOGRAM W Angel CARDIOVERSION ECG 12-LEAD 2022-04-19 20:33:57 Jaspreet Cannon [facility] POC GLUCOSE 2022-04-19 17:28:00 Nadimpalli, July [facility] POC GLUCOSE 2022-04-19 13:31:00 Nadimpalli, July [facility] CBC HEMOGRAM 2022-04-19 12:19:00 Nadimpalli, July [facility] BASIC METABOLIC PANEL 2022-04-19 12:19:00 Myeshaericandrew [facility] MAGNESIUM LEVEL 2022-04-19 12:19:00 Nadericerici, July [facility] ESTIMATED GFR 2022-04-19 12:19:00 Nadericalli, July [facility] POC GLUCOSE 2022-04-19 10:28:00 Nadimpalli, July [facility] POC GLUCOSE 2022-04-19 06:29:00 Nadericalli, July [facility] POC GLUCOSE 2022-04-19 02:51:00 Nadericerici, July [facility] POC GLUCOSE 2022-04-18 22:27:00 Nadimpalli, July [facility] POC GLUCOSE 2022-04-18 17:02:00 Nadimpalli, July [facility] POC GLUCOSE 2022-04-18 13:25:00 Nadericerici, July [facility] CBC HEMOGRAM 2022-04-18 12:36:00 Nadimpalli, July [facility] BASIC METABOLIC PANEL 2022-04-18 12:36:00 Myeshaericandrew, [facility] ESTIMATED GFR 2022-04-18 12:36:00 Nadimperici, July [facility] POC GLUCOSE 2022-04-18 10:01:00 Nadimpalli, July [facility] POC GLUCOSE 2022-04-18 07:11:00 Nadericalli, July [facility] URINE DRUGS OF ABUSE 2022-04-18 03:32:00 Sofi Walden [facility] SCREEN POC GLUCOSE 2022-04-18 02:35:00 Nadericalljulita, July [facility] POC GLUCOSE 2022-04-17 23:00:00 Nadimpalli, July [facility] NM MYOCARDIAL PERFUSION 2022-04-17 20:04:00 Durga [facility] REST STRESS 1 DAY CV STRESS TEST NUCLEAR 2022-04-17 20:04:00 Silva [facility] CARDIO POC GLUCOSE 2022-04-17 17:10:00 Nadimpalli, July [facility] POC GLUCOSE 2022-04-17 13:48:00 Nadimpalli, July [facility] BASIC METABOLIC PANEL 2022-04-17 11:17:00 Nadimpall, [facility] CBC HEMOGRAM 2022-04-17 11:17:00 Nadimpalli, July [facility] MAGNESIUM LEVEL 2022-04-17 11:17:00 Nadimpalli, July [facility] ESTIMATED GFR 2022-04-17 11:17:00 Nadimpalli, July [facility] POC GLUCOSE 2022-04-17 10:13:00 Nadimpalli, July [facility] POC GLUCOSE 2022-04-17 06:09:00 Nadimpalli, July [facility] POC GLUCOSE 2022-04-17 02:46:00 Nadimpalli, July [facility] POC GLUCOSE 2022-04-16 23:09:00 Nadimpalli, July [facility] POC GLUCOSE 2022-04-16 17:53:00 Nadimpalli, July [facility] POC GLUCOSE 2022-04-16 13:40:00 Nadimpalli, July [facility] POC GLUCOSE 2022-04-16 10:34:00 Nadimpalli, July [facility] CBC HEMOGRAM 2022-04-16 09:46:00 Silva [facility] BASIC METABOLIC PANEL 2022-04-16 09:46:00 [facility] PARTIAL THROMBOPLASTIN 2022-04-16 09:46:00 [facility] TIME (PTT) ESTIMATED GFR 2022-04-16 09:46:00 Uriel Pastor spital POC GLUCOSE 2022-04-16 06:16:00 [facility] ospital POC GLUCOSE 2022-04-16 02:38:00 [facility] Alevism H ospital POC GLUCOSE 2022-04-15 23:20:00 Uriel Pastor Ho spital PARTIAL THROMBOPLASTIN 2022-04-15 20:59:00 Renetta Ascencio [facility] TIME (PTT) POC GLUCOSE 2022-04-15 17:50:00 Uriel Pastor Ho spital PARTIAL THROMBOPLASTIN 2022-04-15 14:26:00 Silva [facility] TIME (PTT) POC GLUCOSE 2022-04-15 13:50:00 Uriel Pastor Ho spital CBC HEMOGRAM 2022-04-15 09:50:00 Silva [facility] HERPES SIMPLEX VIRUS BY 2022-04-15 09:50:00 [facility] HIV 1/2 ANTIGEN/ANTIBODY, 2022-04-15 09:50:00 [facility] FOURTH GENERATION, WITH REFLEXES BASIC METABOLIC PANEL 2022-04-15 09:50:00 [facility] ESTIMATED GFR 2022-04-15 09:50:00 Uriel Pastor Ho spital POC GLUCOSE 2022-04-15 09:49:00 Uriel Pastor Ho spital POC GLUCOSE 2022-04-15 06:33:00 Uriel Pastor Ho spital POC GLUCOSE 2022-04-15 05:30:00 Uriel Pastor spital PARTIAL THROMBOPLASTIN 2022-04-15 05:29:00 Renetta Ascencio [facility] TIME (PTT) POC GLUCOSE 2022-04-15 02:07:00 Uriel Pastor Ho spital POC GLUCOSE 2022-04-14 23:24:00 Uriel Pastor spital PARTIAL THROMBOPLASTIN 2022-04-14 22:35:00 Ugoeke, [facility] TIME (PTT) POC GLUCOSE 2022-04-14 17:22:00 Uriel Pastor spital URINALYSIS SCREEN AND 2022-04-14 17:00:00 Ugoe [facility] MICROSCOPY, WITH REFLEX TO CULTURE TTE COMPLETE, W CONTRAST, 2022-04-14 16:06:00 [facility] ([id number]) PARTIAL THROMBOPLASTIN 2022-04-14 15:38:00 [facility] TIME (PTT) POC GLUCOSE 2022-04-14 13:37:00 Uriel Pastor spital CBC HEMOGRAM 2022-04-14 11:19:00 [facility] BASIC METABOLIC PANEL 2022-04-14 11:19:00 [facility] Efren MAGNESIUM LEVEL 2022-04-14 11:19:00 Fahad Costello ESTIMATED GFR 2022-04-14 11:19:00 Fahad Costello POC GLUCOSE 2022-04-14 10:26:00 Fahad Costello POC GLUCOSE 2022-04-14 07:01:00 Fahad Costello HEPATIC FUNCTION PANEL 2022-04-14 06:28:00 [facility] THYROID STIMULATING 2022-04-14 06:28:00 [facility] HORMONE PARTIAL THROMBOPLASTIN 2022-04-14 06:28:00 [facility] TIME (PTT) Efren POC GLUCOSE 2022-04-14 01:54:00 Fahad Costello POC GLUCOSE 2022-04-14 00:05:00 Fahad Costello XR ABDOMEN 1 VW 2022-04-13 23:25:05 René Baird spital POC GLUCOSE 2022-04-13 22:54:00 Fahad Costello ECG 12-LEAD 2022-04-13 21:50:51 Ugoeke, [facility] BETA HYDROXYBUTYRATE 2022-04-13 21:01:00 [facility] MAGNESIUM LEVEL 2022-04-13 21:01:00 Brie René Faulkner spital ESTIMATED GFR 2022-04-13 21:01:00 Brie René Alevism Ho spital TROPONIN T 2022-04-13 21:01:00 Brie Renépartha Faulkner spital PHOSPHORUS LEVEL 2022-04-13 21:01:00 Brie [facility] ospital BASIC METABOLIC PANEL 2022-04-13 21:01:00 [facility] P[facility]SE 2022-04-13 20:54:00 [facility]ad Costello [facility] Efren ECG 12-LEAD 2022-04-13 20:37:02 Silva [facility] TROPONIN T 2022-04-13 20:16:00 Silva [facility] POC GLUCOSE 2022-04-13 19:03:00 Fahad Costello ospital Efren POC GLUCOSE 2022-04-13 14:07:00 [facility] Efren TROPONIN T 2022-04-13 13:25:00 Silva [facility] TROPONIN T 2022-04-13 12:11:00 Silva [facility] PARTIAL THROMBOPLASTIN 2022-04-13 12:11:00 Silva [facility] TIME (PTT) PROTHROMBIN TIME WITH INR 2022-04-13 12:11:00 Silva [facility] ANTI XA, UNFRACTIONATED 2022-04-13 12:11:00 elisabet [facility] ECG 12-LEAD 2022-04-13 11:43:[address] [facility] [address] [facility] [place] [place] POC GLUCOSE 2022-04-13 11:41:00 [facility] POC GLUCOSE 2022-04-13 07:07:[address] [facility] [address] [place] [place] COVID-19 QUALITATIVE 2022-04-13 05:26:00 [facility] RT-PCR [place] POC GLUCOSE 2022-04-13 05:13:00 [facility] POC GLUCOSE 2022-04-13 04:36:[address] [facility] CT ANGIOGRAM PE CHEST 2022-04-13 01:07:30 [facility] [place] ECG 12-LEAD 2022-04-12 22:44:44 [facility] [place] XR CHEST 1 VW PORTABLE 2022-04-12 22:03:54 [facility] [place] ECG ED PRELIMINARY 2022-04-12 21:56:45 [facility] INTERPRETATION [place] CRITICAL CARE 2022-04-12 21:56:45 [facility] ILL/INJURED PATIENT INIT [place] 30-74 MIN CBC WITH PLATELET AND 2022-04-12 21:56:00 [facility] DIFFERENTIAL [place] COMPREHENSIVE METABOLIC 2022-04-12 21:56:00 [facility] PANEL [place] TROPONIN T 2022-04-12 21:56:00 [facility] [place] B NATRIURETIC PEPTIDE 2022-04-12 21:56:00 [facility] [place] ESTIMATED GFR 2022-04-12 21:56:00 [facility] [place] POC GLUCOSE 2022-03-14 21:43:00 Noman Brewer Ho spital POC GLUCOSE 2022-03-14 17:02:00 Nmoan Brewer Ho spital POC GLUCOSE 2022-03-14 13:46:00 Noman Brewer Ho spital POC GLUCOSE 2022-03-14 03:02:00 Noman Brewer Ho spital POC GLUCOSE 2022-03-13 23:33:00 Noman Brewer Ho spital POC GLUCOSE 2022-03-13 18:05:00 Loquias, Elain Alevism Ho spital POC GLUCOSE 2022-03-13 13:57:00 LoquNoman gregg [facility] spital POC GLUCOSE 2022-03-13 02:06:00 Ana LuisaquNoman gregg [facility] spital POC GLUCOSE 2022-03-12 22:33:00 Ana LuisaquNoman gregg [facility] spital POC GLUCOSE 2022-03-12 21:31:00 Ana LuisaquNoman gregg [facility] spital LOWER EXTREMITY 2022-03-12 20:07:00 Davin Walkerist Ho spital ANGIOGRAM,POSSIBLE ANGIOPLASTY,POSSIBLE STENT POC GLUCOSE 2022-03-12 15:51:00 Ana LuisajjNoman gregg spital CBC WITH PLATELET AND 2022-03-12 10:36:00 Ron Pizano [facility] DIFFERENTIAL BASIC METABOLIC PANEL 2022-03-12 10:36:00 Ron Pizano [facility] PROTHROMBIN TIME WITH INR 2022-03-12 10:36:00 [facility] ESTIMATED GFR 2022-03-12 10:36:00 [facility] POC GLUCOSE 2022-03-12 02:25:00 [facility] USPV RADAMES EXTREMITY 2022-03-11 23:31:00 [facility] BILATERAL POC GLUCOSE 2022-03-11 23:16:00 [facility] POC GLUCOSE 2022-03-11 17:42:00 [facility] POC GLUCOSE 2022-03-11 13:36:00 [facility] CBC WITH PLATELET AND 2022-03-11 12:48:00 HarinderRon [facility] DIFFERENTIAL COMPREHENSIVE METABOLIC 2022-03-11 12:48:00 [facility] PANEL ESTIMATED GFR 2022-03-11 12:48:00 [facility] POC GLUCOSE 2022-03-11 02:16:00 HarinderFormerly [facility] METHICILLIN-RESISTANT 2022-03-11 00:23:00 Laurence Abreu [facility] STAPHYLOCOCCUS AUREUS Atul (MRSA), LEILANI POC GLUCOSE 2022-03-10 22:58:00 Harinder, [facility] VANCOMYCIN LEVEL, RANDOM 2022-03-10 20:31:00 Bridgette Hernandez [facility] POC GLUCOSE 2022-03-10 17:46:00 Harinder, [facility] POC GLUCOSE 2022-03-10 13:57:00 Harinder, [facility] CBC WITH PLATELET AND 2022-03-10 09:15:[address] [facility] DIFFERENTIAL COMPREHENSIVE METABOLIC 2022-03-10 09:15:00 Harinder [facility] PANEL MAGNESIUM LEVEL 2022-03-10 09:15:00 Harinder, [facility] ESTIMATED GFR 2022-03-10 09:15:00 [facility] POC GLUCOSE 2022-03-10 02:19:00 Harinder [facility] POC GLUCOSE 2022-03-09 22:28:00 Harinder [facility] METHICILLIN-RESISTANT 2022-03-09 18:20:[address] [facility] STAPHYLOCOCCUS AUREUS (MRSA), LEILANI POC GLUCOSE 2022-03-09 17:16:00 [facility] POC GLUCOSE 2022-03-09 08:46:00 [facility] POC GLUCOSE 2022-03-09 07:16:00 [facility] COVID-19 QUALITATIVE 2022-03-09 07:14:00 [facility] COMPREHENSIVE METABOLIC 2022-03-09 06:10:00 [facility] PANEL HEMOGLOBIN A1C 2022-03-09 06:10:00 Tonie-Edgar Castro ospital Parog[employer]og LIPID PANEL 2022-03-09 06:10:00 Tonie-OgEdgar [facility] ospital Parog[employer]og XR FOOT 3+ VW LEFT 2022-03-09 05:56:37 [facility] BETA HYDROXYBUTYRATE 2022-03-09 05:43:00 [facility] CBC WITH PLATELET AND 2022-03-09 05:35:00 Arnulfo [facility] DIFFERENTIAL LACTIC ACID LEVEL, SEPSIS 2022-03-09 05:35:00 Laxmi Arredondo [facility] - NOW AND REPEAT 2X EVERY 3 HOURS VENOUS BLOOD GAS 2022-03-09 05:35:00 Arnulfo [facility] ESTIMATED GFR 2022-03-09 05:35:00 Arnulfo [facility] POC GLUCOSE 2022-03-09 03:55:00 Provider, Yvonne [facility] POC GLUCOSE 2021-12-14 16:15:00 René De Jesus [facility] Arnulfo POC GLUCOSE 2021-12-14 12:10:00 Rneé De Jesus [facility] Arn[facility]fo POC GLUCOSE 2021-12-14 01:40:00 René De [facility] Arn[facility]fo POC GLUCOSE 2021-12-13 21:17:00 René De Jesus [facility] Arredondo POC GLUCOSE 2021-12-13 16:05:00 René De Jesus [facility] ospital Arnulfo POC GLUCOSE 2021-12-13 12:22:00 René De Jesus [facility] Arn[facility]fo POC GLUCOSE 2021-12-13 01:36:00 [facility]é De Jesus [facility] Ran[facility]fo POC GLUCOSE 2021-12-12 22:00:00 René De Jesus [facility] Arredondo VENIPUNC NEED PHYS 2021-12-12 17:56:39 Trinh Christensen [facility] SKILL,DX OR RX POC GLUCOSE 2021-12-12 16:34:00 René De Jesus [facility] POC [facility]SE 2021-12-12 12:27:00 [facility] BASIC METABOLIC PANEL 2021-12-12 10:55:00 Neal [facility] Arnulfo CBC WITH PLATELET AND 2021-12-12 10:55:00 Neal [facility] DIFFERENTIAL Arnulfo ESTIMATED GFR 2021-12-12 10:55:00 René De Jesus [facility] ZZCOVID-19 ANTI-SPIKE IGG 2021-12-12 10:54:00 Sae, [facility] ANTIBODY TITER Harjinder EarleneZCOVID-19 SEROLOGY 2021-12-12 10:54:00 [facility]ILLANCE Harjinder POC GLUCOSE 2021-12-12 03:38:00 [facility] 2021-12-12 01:22:00 René De Jesus [facility] ospital Arnulfo POC GLUCOSE 2021-12-11 22:32:00 René De Jesus [facility] POC [facility]SE 2021-12-11 17:04:00 René De Jesus [facility] ospital Arnulfo POC GLUCOSE 2021-12-11 13:53:00 René De Jesus [facility] POC GLUCOSE 2021-12-11 08:48:00 [facility] POC GLUCOSE 2021-12-11 07:29:00 [facility] POC GLUCOSE 2021-12-11 06:36:00 [facility] COVID-19 QUALITATIVE 2021-12-11 05:55:00 Wilberto Carbajal [facility] RT-PCR POC GLUCOSE 2021-12-11 05:34:00 [facility] CBC WITH PLATELET AND 2021-12-11 04:02:00 Wilberto Carbajal [facility] DIFFERENTIAL COMPREHENSIVE METABOLIC 2021-12-11 04:02:00 [facility] PANEL LIPASE LEVEL 2021-12-11 04:02:00 [facility] BETA HYDROXYBUTYRATE 2021-12-11 04:02:00 Wilberto Carbajal [facility] VENOUS BLOOD GAS 2021-12-11 04:02:00 Wilberto Carbajal [facility] ESTIMATED GFR 2021-12-11 04:02:00 [facility] ABDOMEN PELVIS WO 2021-12-11 02:47:59 Wilberto Carbajal [facility] CONTRAST URINE CULTURE 2021-12-11 02:24:00 [facility] URINALYSIS SCREEN AND 2021-12-11 01:10:00 Wilberto Carbajal [facility] MICROSCOPY, WITH REFLEX TO CULTURE URINE CULTURE 2021-11-08 17:34:00 Mitzi [facility] spital URINALYSIS SCREEN AND 2021-11-08 16:54:00 [facility] MICROSCOPY, WITH REFLEX TO CULTURE CT RENAL STONE PROTOCOL 2021-11-08 16:35:59 [facility] CBC WITH PLATELET AND 2021-11-08 16:05:00 [facility] DIFFERENTIAL BASIC METABOLIC PANEL 2021-11-08 16:05:00 [facility] LIPASE LEVEL 2021-11-08 16:05:00 [facility] spital HEPATIC FUNCTION PANEL 2021-11-08 16:05:00 [facility] ESTIMATED GFR 2021-11-08 16:05:00 Mitzi [facility] spital POC GLUCOSE 2021-11-08 15:52:00 [facility] spital ECG ED PRELIMINARY 2021-10-11 04:49:00 [facility] 12-LEAD 2021-10-11 03:14:36 [facility] WITH [facility]ATELET AND 2021-10-11 02:57:00 [facility] DIFFERENTIAL COMPREHENSIVE METABOLIC 2021-10-11 02:57:00 [facility] PANEL TROPONIN T 2021-10-11 02:57:00 [facility] B NATRIURETIC PEPTIDE 2021-10-11 02:57:00 [facility] PROT[facility] TIME WITH INR 2021-10-11 02:57:00 Yannick Norberto [facility] PARTIAL THROMBOPLASTIN 2021-10-11 02:57:00 [facility] TIME (PTT) ESTIMATED GFR 2021-10-11 02:57:00 [facility] XR CHEST 2 VW 2021-10-11 02:05:13 [facility] DIABETIC FOOT EXAMINATION 2021-06-29 00:00:00 Virgilio Garcia [id number]. (2027F) 2 MOST RECENT DIASTOLIC 2021-06-29 00:00:00 Garcia, Branch 2.16.8 [id number]. BLOOD PRESSURE 80-89 MM 2 HG (HTN, CKD, CAD) (DM) (3079F) MOST RECENT SYSTOLIC 2021-06-29 00:00:00 Garcia, Branch 2.16.84 [id number]. BLOOD PRESSURE 130-139 MM 2 HG (DM),(HTN, CKD, CAD) (3075F) NEGATIVE SCREEN FOR 2021-06-29 00:00:00 Garcia, Branch [id number]. CLINICAL DEPRESSION, 2 FOLLOW-UP NOT REQUIRED ([id number]) PATIENT IDENTIFIED A 2021-06-29 00:00:00 Garcia, Branch [id number]. TOBACCO USER RECEIVED 2 TOBACCO CESSATION INTERVENTION (COUNSELING AND/OR PHARMACOTHERAPY) ([id number]) SCREENING FOR TOBACCO USE 2021-06-29 00:00:00 Garcia, Branch [id number]. (4004F) 2 PATIENT SCREENED FOR 2021-06-29 00:00:00 Garcia, Branch 2.16.84 [id number]. TOBACCO USE AND 2 IDENTIFIED A TOBACCO USER (G9902) XRAY FOOT 3 VIEWS - 2021-02-02 15:18:00 Jamin Lopez [facility] ROUTINE CBC/DIFF 2021-02-02 15:12:00 Jamin Lopez alth BASIC METABOLIC PANEL 2021-02-02 15:12:00 Jamin Lopez [facility] CBC 2021-02-02 15:12:00 Jamin Lopez alth URINE CULTURE 2021-01-03 04:26:00 [facility] Richard URINALYSIS SCREEN AND 2021-01-03 04:26:00 [facility] MICROSCOPY, WITH REFLEX Richard TO CULTURE LACTIC ACID LEVEL, SEPSIS 2021-01-03 03:04:00 [facility] - NOW AND REPEAT 2X EVERY Richard 3 HOURS TROPONIN 2021-01-03 03:04:00 [facility] Richard US DUPLEX VENOUS LOWER 2021-01-03 01:53[facility] ED PRELIMINARY 2021-01-03 01:17:47 Juan [facility] INTERPRETATION [place] XR TIBIA FIBULA 2 VW 2021-01-03 [facility]+ VW LEFT 2021-01-03 01:05:05 Juan [facility] ECG 12-LEAD 2021-01-03 00[facility] 2021-01-03 00:47:00 [facility] ANAEROBIC Richard BLOOD CULTURE, AEROBIC & 2021-01-03 00:45:00 [facility] [facility] HC COMPLETE BLD COUNT 2021-01-03 00:43:00 [facility] W/AUTO DIFF Richard BASIC METABOLIC PANEL 2021-01-03 00:43:00 [facility] HEPATIC FUNCTION PANEL 2021-01-03 00:43:00 [facility] LACTIC ACID LEVEL, SEPSIS 2021-01-03 00:43:00 [facility] - NOW AND REPEAT 2X EVERY [place] 3 HOURS LIPASE LEVEL 2021-01-03 00:43:00 [facility] Richard TROPONIN 2021-01-03 00:43:00 [facility] B NATRIURETIC PEPTIDE 2021-01-03 00:43:00 [facility] Richard ESTIMATED GFR 2021-01-03 00:43:00 [facility] Amputation 2020-08-04 00:00:00 [facility] [id number]. [id number] 2020-07-04 00:00:00 DAVJO.04 [facility] [id number] 2020-07-04 00:00:00 DAVJO.04 [facility] [id number] 2020-07-04 00:00:00 DAVJO.04 [facility] [id number] 2020-07-04 00:00:00 DAVJO.04 [facility] [id number] 2020-07-04 00:00:00 DAVJO.04 [facility] [id number] 2020-07-04 00:00:00 DAVJO.04 [facility] [id number] 2020-07-04 00:00:00 DAVJO.04 [facility] [id number] 2020-07-04 00:00:00 DAVJO.04 [facility] [id number] 2020-07-01 00:00:00 JARKE [facility] [id number] 2020-07-01 00:00:00 CRISTIANO [facility] [id number] 2020-07-01 00:00:00 CRISTIANO [facility] [id number] 2020-07-01 00:00:00 [facility] Annual Eye Exam - FOR [facility] [id number] NON-DIABETICS ONLY 2 COLONOSCOPY IN ADULT [facility] [id number]. ([id number]) 2 Patient received annual [facility] [id number]. dental check-up 2 Teeth [facility] [id number] 3.4. 2 Plan of Care Planned Activity [...] Influenza Seasonal (>/= 19 yrs)] Future Scheduled 2023-01-16 [facility] Test 13:17:08 malignant neoplasm of colon (procedure) [code = 769408719] Future Scheduled 2023-01-16 [facility] Test 13:17:08 malignant neoplasm of colon (procedure) [code = 542597754] Future Scheduled 2023-01-16 [facility] Test 13:17:08 malignant neoplasm of colon (procedure) [code = 133310601] Future Scheduled 2023-01-16 COVID-19 VACCINE (#1) [facility] Test 13:17:08 [code = COVID-19 VACCINE (#1)] Future Scheduled 2023-01-16 DIABETES: RETINAL EYE [facility] Test 13:17:08 EXAM [code = DIABETES: RETINAL EYE EXAM] Future Scheduled 2023-01-16 [facility] Test 13:17:08 [code = DIABETIC FOOT EXAM] Future Scheduled 2023-01-16 [facility] Test 13:17:08 [code = URINE MICROALBUMIN] Future Scheduled 2023-01-16 Hepatitis C screening [facility] Test 13:17:08 (procedure) [code = 964811906] Future Scheduled 2023-01-16 [facility] Test 13:17:08 malignant neoplasm of colon (procedure) [code = 881302578] Future Scheduled 2023-01-16 [facility] Test 13:17:08 malignant neoplasm of colon (procedure) [code = 907502210] Future Scheduled 2023-01-16 [facility] Test 13:17:08 malignant neoplasm of lung (procedure) [code = 337144946] Future Scheduled 2023-01-16 SHINGLES VACCINES (1 [facility] Test 13:17:08 of 2) [code = SHINGLES VACCINES (1 of 2)] Future Scheduled 2023-01-16 [facility] Test 13:17:08 [code = INFLUENZA VACCINE (#1)] Future Scheduled 2022-12-20 IMM Influenza Seasonal [facility] Test 00:00:00 (>/= 19 yrs) [code = IMM Influenza Seasonal (>/= 19 yrs)] Future Scheduled 2022-11-21 [facility] Test 10:36:19 malignant neoplasm of colon (procedure) [code = 696006354] Future Scheduled 2022-11-21 [facility] Test 10:36:19 malignant neoplasm of colon (procedure) [code = 910973510] Future Scheduled 2022-11-21 [facility] Test 10:36:19 malignant neoplasm of colon (procedure) [code = 480218524] Future Scheduled 2022-11-21 COVID-19 VACCINE (#1) [facility] Test 10:36:19 [code = COVID-19 VACCINE (#1)] Future Scheduled 2022-11-21 DIABETES: RETINAL EYE [facility] Test 10:36:19 EXAM [code = DIABETES: RETINAL EYE EXAM] Future Scheduled 2022-11-21 [facility] Test 10:36:19 [code = DIABETIC FOOT EXAM] Future Scheduled 2022-11-21 [facility] Test 10:36:19 [code = URINE MICROALBUMIN] Future Scheduled 2022-11-21 Hepatitis C screening [facility] Test 10:36:19 (procedure) [code = 424154327] Future Scheduled 2022-11-21 [facility] Test 10:36:19 malignant neoplasm of colon (procedure) [code = 217295373] Future Scheduled 2022-11-21 [facility] Test 10:36:19 malignant neoplasm of colon (procedure) [code = 487533832] Future Scheduled 2022-11-21 [facility] Test 10:36:19 malignant neoplasm of lung (procedure) [code = 112692832] Future Scheduled 2022-11-21 SHINGLES VACCINES (1 Met [facility] Test 10:36:19 of 2) [code = SHINGLES VACCINES (1 of 2)] Future Scheduled 2022-11-21 [facility]ZA [facility]ACCINE [facility] 10:36:19 [code = INFLUENZA VACCINE] Future Scheduled 2022-11-21 [facility] Test 10:36:19 malignant neoplasm of colon (procedure) [code = 220559862] Future Scheduled 2022-11-21 [facility] Test 10:36:19 malignant neoplasm of colon (procedure) [code = 386803331] Future Scheduled 2022-11-21 [facility] Test 10:36:19 malignant neoplasm of colon (procedure) [code = 868069614] Future Scheduled 2022-11-21 COVID-19 VACCINE (#1) [facility] Test 10:36:19 [code = COVID-19 VACCINE (#1)] Future Scheduled 2022-11-21 DIABETES: RETINAL EYE [facility] Test 10:36:19 EXAM [code = DIABETES: RETINAL EYE EXAM] Future Scheduled 2022-11-21 DIABETIC FOOT EXAM [facility] Test 10:36:19 [code = DIABETIC FOOT EXAM] Future Scheduled 2022-11-21 URINE MICROALBUMIN [facility] Test 10:36:19 [code = URINE MICROALBUMIN] Future Scheduled 2022-11-21 Hepatitis C screening [facility] Test 10:36:19 (procedure) [code = 921637288] Future Scheduled 2022-11-21 [facility] Test 10:36:19 malignant neoplasm of colon (procedure) [code = 054772822] Future Scheduled 2022-11-21 [facility] Test 10:36:19 malignant neoplasm of colon (procedure) [code = 144642970] Future Scheduled 2022-11-21 [facility] Test 10:36:19 malignant neoplasm of lung (procedure) [code = 103657754] Future Scheduled 2022-11-21 SHINGLES VACCINES (1 [facility] Test 10:36:19 of 2) [code = SHINGLES VACCINES (1 of 2)] Future Scheduled 2022-11-21 [facility]ZA [facility]ACCINE [facility] 10:36:19 [code = INFLUENZA VACCINE] Future Scheduled 2022-11-21 [facility] Test 10:36:19 malignant neoplasm of colon (procedure) [code = 550103066] Future Scheduled 2022-11-21 [facility] Test 10:36:19 malignant neoplasm of colon (procedure) [code = 704848815] Future Scheduled 2022-11-21 [facility] Test 10:36:19 malignant neoplasm of colon (procedure) [code = 787004384] Future Scheduled 2022-11-21 COVID-19 VACCINE (#1) [facility] Test 10:36:19 [code = COVID-19 VACCINE (#1)] Future Scheduled 2022-11-21 DIABETES: RETINAL EYE [facility] Test 10:36:19 EXAM [code = DIABETES: RETINAL EYE EXAM] Future Scheduled 2022-11-21 DIABETIC FOOT EXAM [facility] Test 10:36:19 [code = DIABETIC FOOT EXAM] Future Scheduled 2022-11-21 URINE MICROALBUMIN [facility] Test 10:36:19 [code = URINE MICROALBUMIN] Future Scheduled 2022-11-21 Hepatitis C screening [facility] Test 10:36:19 (procedure) [code = 217183199] Future Scheduled 2022-11-21 [facility] Test 10:36:19 malignant neoplasm of colon (procedure) [code = 850937310] Future Scheduled 2022-11-21 [facility] Test 10:36:19 malignant neoplasm of colon (procedure) [code = 920459397] Future Scheduled 2022-11-21 [facility] Test 10:36:19 malignant neoplasm of lung (procedure) [code = 355788651] Future Scheduled 2022-11-21 [facility]IN[facility] ([facility] 10:36:19 of 2) [code = SHINGLES VACCINES (1 of 2)] Future Scheduled 2022-11-21 ZZZ INFLUENZA VACCINE [facility] Test 10:36:19 [code = ZZZ INFLUENZA VACCINE] Future Scheduled 2022-10-10 [facility] Test 14:06:50 malignant neoplasm of colon (procedure) [code = 232036442] Future Scheduled 2022-10-10 [facility] Test 14:06:50 malignant neoplasm of colon (procedure) [code = 408214122] Future Scheduled 2022-10-10 [facility] Test 14:06:50 malignant neoplasm of colon (procedure) [code = 811795866] Future Scheduled 2022-10-10 COVID-19 VACCINE (#1) [facility] Test 14:06:50 [code = COVID-19 VACCINE (#1)] Future Scheduled 2022-10-10 DIABETES: RETINAL EYE [facility] Test 14:06:50 EXAM [code = DIABETES: RETINAL EYE EXAM] Future Scheduled 2022-10-10 DIABETIC FOOT EXAM [facility] Test 14:06:50 [code = DIABETIC FOOT EXAM] Future Scheduled 2022-10-10 URINE MICROALBUMIN [facility] Test 14:06:50 [code = URINE MICROALBUMIN] Future Scheduled 2022-10-10 Hepatitis C screening [facility] Test 14:06:50 (procedure) [code = 674530093] Future Scheduled 2022-10-10 [facility] Test 14:06:50 malignant neoplasm of colon (procedure) [code = 320894526] Future Scheduled 2022-10-10 [facility] Test 14:06:50 malignant neoplasm of colon (procedure) [code = 708782248] Future Scheduled 2022-10-10 [facility] Test 14:06:50 malignant neoplasm of lung (procedure) [code = 001913557] Future Scheduled 2022-10-10 SHINGLES VACCINES (1 [facility] 14:06:50 of 2) [code = SHINGLES VACCINES (1 of 2)] Future Scheduled 2022-10-10 INFLU[facility]ZA VACCINE [facility] 14:06:50 [code = INFLUENZA VACCINE] Future Scheduled 2022-09-26 [facility] Test 01:58:19 malignant neoplasm of colon (procedure) [code = 186113770] Future Scheduled 2022-09-26 [facility] Test 01:58:19 malignant neoplasm of colon (procedure) [code = 309001949] Future Scheduled 2022-09-26 [facility] Test 01:58:19 malignant neoplasm of colon (procedure) [code = 037474166] Future Scheduled 2022-09-26 COVID-19 [facility] Test 01:58:19 [code = COVID-19 VACCINE (#1)] Future Scheduled 2022-09-26 DIABETES: RETINAL EYE [facility] Test 01:58:19 EXAM [code = DIABETES: RETINAL EYE EXAM] Future Scheduled 2022-09-26 DI[facility]ETIC [facility]OT [facility]AM [facility] Test 01:58:19 [code = DIABETIC FOOT EXAM] Future Scheduled 2022-09-26 [facility] 01:58:19 [code = URINE MICROALBUMIN] Future Scheduled 2022-09-26 [facility] Test 01:58:19 (procedure) [code = 840600170] Future Scheduled 2022-09-26 [facility] Test 01:58:19 malignant neoplasm of colon (procedure) [code = 015626249] Future Scheduled 2022-09-26 [facility] Test 01:58:19 malignant neoplasm of colon (procedure) [code = 181243748] Future Scheduled 2022-09-26 [facility] Test 01:58:19 malignant neoplasm of lung (procedure) [code = 809436067] Future Scheduled 2022-09-26 SHINGLES VACCINES (1 [facility] 01:58:19 of 2) [code = SHINGLES VACCINES (1 of 2)] Future Scheduled 2022-09-26 INFLUENZA VACCINE [facility] 01:58:19 [code = INFLUENZA VACCINE] Future Scheduled 2022-09-19 COVID-19 VACCINE (#1) [facility] Test 11:07:21 [code = COVID-19 VACCINE (#1)] Future Scheduled 2022-09-19 DIABETES: RETINAL EYE [facility] Test 11:07:21 EXAM [code = DIABETES: RETINAL EYE EXAM] Future Scheduled 2022-09-19 DIABETIC FOOT EXAM [facility] Test 11:07:21 [code = DIABETIC FOOT EXAM] Future Scheduled 2022-09-19 [facility] 11:07:21 [code = URINE MICROALBUMIN] Future Scheduled 2022-09-19 [facility] 11:07:21 (procedure) [code = 091287364] Future Scheduled 2022-09-19 [facility] Test 11:07:21 malignant neoplasm of colon (procedure) [code = 373234396] Future Scheduled 2022-09-19 [facility] Test 11:07:21 malignant neoplasm of lung (procedure) [code = 451498104] Future Scheduled 2022-09-19 SHINGLES VACCINES (1 [facility] Test 11:07:21 of 2) [code = SHINGLES VACCINES (1 of 2)] Future Scheduled 2022-09-19 [facility]ZA VACCINE [facility] 11:07:21 [code = INFLUENZA VACCINE] Future Scheduled 2022-08-19 COVID-19 VACCINE (#1) [facility] Test 10:24:38 [code = COVID-19 VACCINE (#1)] Future Scheduled 2022-08-19 DIABETES: RETINAL EYE [facility] Test 10:24:38 EXAM [code = DIABETES: RETINAL EYE EXAM] Future Scheduled 2022-08-19 DIABETIC FOOT EXAM [facility] Test 10:24:38 [code = DIABETIC FOOT EXAM] Future Scheduled 2022-08-19 [facility] 10:24:38 [code = URINE MICROALBUMIN] Future Scheduled 2022-08-19 Hepatitis C screening [facility] Test 10:24:38 (procedure) [code = 165552811] Future Scheduled 2022-08-19 COLONOSCOPY SCREENING [facility] Test 10:24:38 [code = COLONOSCOPY SCREENING] Future Scheduled 2022-08-19 [facility] Test 10:24:38 malignant neoplasm of lung (procedure) [code = 660558935] Future Scheduled 2022-08-19 SHINGLES VACCINES (1 [facility] Test 10:24:38 of 2) [code = SHINGLES VACCINES (1 of 2)] Future Scheduled 2022-08-19 [facility]ZA VACCINE [facility] 10:24:38 [code = INFLUENZA VACCINE] Future Scheduled 2022-08-19 COVID-19 VACCINE (#1) [facility] Test 10:24:38 [code = COVID-19 VACCINE (#1)] Future Scheduled 2022-08-19 DIABETES: RETINAL EYE [facility] Test 10:24:38 EXAM [code = DIABETES: RETINAL EYE EXAM] Future Scheduled 2022-08-19 DIABETIC FOOT [facility]AM [facility] Test 10:24:38 [code = DIABETIC FOOT EXAM] Future Scheduled 2022-08-19 [facility] 10:24:38 [code = URINE MICROALBUMIN] Future Scheduled 2022-08-19 Hepatitis C screening [facility] Test 10:24:38 (procedure) [code = 697554634] Future Scheduled 2022-08-19 COLONOSCOPY SCREENING [facility] Test 10:24:38 [code = COLONOSCOPY SCREENING] Future Scheduled 2022-08-19 [facility] Test 10:24:38 malignant neoplasm of lung (procedure) [code = 778249940] Future Scheduled 2022-08-19 SHINGLES VACCINES (1 [facility] Test 10:24:38 of 2) [code = SHINGLES VACCINES (1 of 2)] Future Scheduled 2022-08-19 INFLU[facility]ZA VACCINE [facility] 10:24:38 [code = INFLUENZA VACCINE] Future Scheduled 2022-08-19 COVID-19 VACCINE (#1) [facility] Test 10:24:38 [code = COVID-19 VACCINE (#1)] Future Scheduled 2022-08-19 DIABETES: RETINAL EYE [facility] Test 10:24:38 EXAM [code = DIABETES: RETINAL EYE EXAM] Future Scheduled 2022-08-19 [facility] Test 10:24:38 [code = DIABETIC FOOT EXAM] Future Scheduled 2022-08-19 [facility] Test 10:24:38 [code = URINE MICROALBUMIN] Future Scheduled 2022-08-19 Hepatitis C screening [facility] Test 10:24:38 (procedure) [code = 425881372] Future Scheduled 2022-08-19 COLONOSCOPY SCREENING [facility] Test 10:24:38 [code = COLONOSCOPY SCREENING] Future Scheduled 2022-08-19 [facility] Test 10:24:38 malignant neoplasm of lung (procedure) [code = 765560658] Future Scheduled 2022-08-19 SHINGLES VACCINES (1 [facility] Test 10:24:38 of 2) [code = SHINGLES VACCINES (1 of 2)] Future Scheduled 2022-08-19 INFLUENZA VACCINE [facility] 10:24:38 [code = INFLUENZA VACCINE] Future Scheduled 2022-08-19 COVID-19 VACCINE (#1) [facility] Test 10:24:38 [code = COVID-19 VACCINE (#1)] Future Scheduled 2022-08-19 DIABETES: RETINAL EYE [facility] Test 10:24:38 EXAM [code = DIABETES: RETINAL EYE EXAM] Future Scheduled 2022-08-19 [facility] Test 10:24:38 [code = DIABETIC FOOT EXAM] Future Scheduled 2022-08-19 [facility] Test 10:24:38 [code = URINE MICROALBUMIN] Future Scheduled 2022-08-19 Hepatitis C screening [facility] Test 10:24:38 (procedure) [code = 794791795] Future Scheduled 2022-08-19 COLONOSCOPY SCREENING [facility] Test 10:24:38 [code = COLONOSCOPY SCREENING] Future Scheduled 2022-08-19 [facility] Test 10:24:38 malignant neoplasm of lung (procedure) [code = 396953592] Future Scheduled 2022-08-19 SHINGLES VACCINES (1 Met [facility] Test 10:24:38 of 2) [code = SHINGLES VACCINES (1 of 2)] Future Scheduled 2022-08-19 INFLUENZA VACCINE [facility] Test 10:24:38 [code = INFLUENZA VACCINE] Future Scheduled 2022-01-19 IMM [facility]al [facility] 00:00:00 (>/= 19 yrs) [code = IMM Influenza Seasonal (>/= 19 yrs)] Future Scheduled 2022-01-19 IMM Influenza Seasonal [facility] 00:00:00 (>/= 19 yrs) [code = IMM Influenza Seasonal (>/= 19 yrs)] Future Scheduled 2021-12-17 HEPATITIS B VACCINES [facility] Test 10:00:08 (1 of 3 - 3-dose series) [code = HEPATITIS B VACCINES (1 of 3 - 3-dose series)] Future Scheduled 2021-12-17 COVID-19 VACCINE (#1) [facility] Test 10:00:08 [code = COVID-19 VACCINE (#1)] Future Scheduled 2021-12-17 Pneumococcal [facility]ine: [facility] 10:00:08 Pediatrics (0 to 5 Years) and At-Risk Patients (6 to 64 Years) (1 - PCV) [code = Pneumococcal Vaccine: Pediatrics (0 to 5 Years) and At-Risk Patients (6 to 64 Years) (1 - PCV)] Future Scheduled 2021-12-17 Hepatitis C screening [facility] Test 10:00:08 (procedure) [code = 809807392] Future Scheduled 2021-12-17 COLONOSCOPY SCREENING [facility] Test 10:00:08 [code = COLONOSCOPY SCREENING] Future Scheduled 2021-12-17 SHINGLES VACCINES (1 [facility] Test 10:00:08 of 2) [code = SHINGLES VACCINES (1 of 2)] Future Scheduled 2021-12-17 INFLUENZA VACCINE [facility] Test 10:00:08 [code = INFLUENZA VACCINE] Future Scheduled 2021-12-17 HEPATITIS B VACCINES [facility] Test 10:00:08 (1 of 3 - 3-dose series) [code = HEPATITIS B VACCINES (1 of 3 - 3-dose series)] Future Scheduled 2021-12-17 COVID-19 VACCINE (#1) [facility] Test 10:00:08 [code = COVID-19 VACCINE (#1)] Future Scheduled 2021-12-17 Pneumococcal Vaccine: [facility] Test 10:00:08 Pediatrics (0 to 5 Years) and At-Risk Patients (6 to 64 Years) (1 - PCV) [code = Pneumococcal Vaccine: Pediatrics (0 to 5 Years) and At-Risk Patients (6 to 64 Years) (1 - PCV)] Future Scheduled 2021-12-17 Hepatitis C screening [facility] Test 10:00:08 (procedure) [code = 679992321] Future Scheduled 2021-12-17 COLONOSCOPY SCREENING [facility] Test 10:00:08 [code = COLONOSCOPY SCREENING] Future Scheduled 2021-12-17 SHINGLES VACCINES (1 [facility] Test 10:00:08 of 2) [code = SHINGLES VACCINES (1 of 2)] Future Scheduled 2021-12-17 INFLUENZA VACCINE [facility] Test 10:00:08 [code = INFLUENZA VACCINE] Diagnostic Test 2021-06-29 HEMOGLOBIN GLYCLATED Pending 14:06:03 (HGB A1C) (60058) [code = 93475] Diagnostic Test 2021-06-29 CBC & PLATELETS (AUTO) Pending 14:05:14 (64871) [code = 24248] Diagnostic Test 2021-06-29 MICROALBUMIN/CREAT. Pending 13:35:45 RATIO WITH CREATININE (ALONDRA URINE) (52664) [code = 53848] Diagnostic Test 2021-06-29 LIPID PANEL (21233) Pending 13:35:39 [code = 50254] Diagnostic Test 2021-06-29 COMPREHENSIVE Pending 13:35:39 METABOLIC PANEL (00438) [code = 34766] Future Scheduled 2017 [facility] Test 00:00:00 malignant neoplasm of colon (procedure) [code = 647122648] Future Scheduled 2017 [facility] Test 00:00:00 malignant neoplasm of colon (procedure) [code = 865060875] Future Scheduled 2017 [facility] Test 00:00:00 malignant neoplasm of colon (procedure) [code = 482846491] Future Scheduled 2017 [facility] Test 00:00:00 malignant neoplasm of colon (procedure) [code = 042817499] Future Scheduled 2017 [facility] Test 00:00:00 malignant neoplasm of colon (procedure) [code = 374730571] Future Scheduled 2017 [facility] Test 00:00:00 malignant neoplasm of colon (procedure) [code = 396228514] Future Scheduled 2017 [facility] Test 00:00:00 malignant neoplasm of colon (procedure) [code = 134646973] Future Scheduled 2017 [facility] Test 00:00:00 malignant neoplasm of colon (procedure) [code = 290717143] Future Scheduled 2017 [facility] Test 00:00:00 malignant neoplasm of colon (procedure) [code = 266446246] Future Scheduled 2017 [facility] Test 00:00:00 malignant neoplasm of colon (procedure) [code = 061264637] Future Scheduled 2017 [facility] Test 00:00:00 malignant neoplasm of colon (procedure) [code = 706874110] Future Scheduled 2017 [facility] Test 00:00:00 malignant neoplasm of colon (procedure) [code = 816346590] Future Scheduled 1985 DM [facility]inal Exam [facility] 00:00:00 (Yearly) [code = DM Retinal Exam (Yearly)] Future Scheduled 1985 DM Foot Exam (Yearly) [facility] Test 00:00:00 [code = DM Foot Exam (Yearly)] Future Scheduled 1985 [facility] 00:00:00 protein (procedure) [code = 048950095] Future Scheduled 1985 DM [facility] 00:00:00 (Yearly) [code = DM Retinal Exam (Yearly)] Future Scheduled 1985 Diabetic foot [facility] 00:00:00 examination (regime/therapy) [code = 308802769] Future Scheduled 1985 [facility] Test 00:00:00 protein (procedure) [code = 933092300] Future Scheduled 1985 DM [facility] 00:00:00 (Yearly) [code = DM Retinal Exam (Yearly)] Future Scheduled 1985 [facility] 00:00:00 examination (regime/therapy) [code = 102431945] Future Scheduled 1985 [facility] 00:00:00 protein (procedure) [code = 622607797] Future Scheduled 1985 DM [facility] 00:00:00 (Yearly) [code = DM Retinal Exam (Yearly)] Future Scheduled 1985 [facility] 00:00:00 examination (regime/therapy) [code = 871779345] Future Scheduled 1985 Urine screening for [facility] 00:00:00 protein (procedure) [code = 856949106] Future Scheduled 1985 DM Retinal Exam [facility] 00:00:00 (Yearly) [code = DM Retinal Exam (Yearly)] Future Scheduled 1985 Diabetic foot [facility] 00:[facility]:00 examination (regime/therapy) [code = 825251022] Future Scheduled 1985 Urine screening for [facility] 00:00:00 protein (procedure) [code = 912610829] Future Scheduled 1985 DM [facility] Ex[facility] 00:00:00 (Yearly) [code = DM Retinal Exam (Yearly)] Future Scheduled 1985 Di[facility] 00:00:00 examination (regime/therapy) [code = 940379340] Future Scheduled 1985 Urine screening for [facility] 00:00:00 protein (procedure) [code = 565162278] Future Scheduled 1985 DM [facility] 00:00:00 (Yearly) [code = DM Retinal Exam (Yearly)] Future Scheduled 1985 Urine screening for [facility] 00:00:00 protein (procedure) [code = 986366298] Future Scheduled 1985 DM [facility] 00:00:00 (Yearly) [code = DM Retinal Exam (Yearly)] Future Scheduled 1985 Di[facility] 00:00:00 examination (regime/therapy) [code = 916123319] Future Scheduled 1985 [facility] 00:00:00 examination (regime/therapy) [code = 152475726] Future Scheduled 1985 Urine screening for [facility] 00:00:00 protein (procedure) [code = 512777273] Future Scheduled 1985 DM [facility]inal Ex[facility] 00:00:00 (Yearly) [code = DM Retinal Exam (Yearly)] Future Scheduled 1985 Di[facility] 00:00:00 examination (regime/therapy) [code = 039239428] Future Scheduled 1985 Urine screening for [facility] 00:00:00 protein (procedure) [code = 439084663] Future Scheduled 1985 DM [facility] Ex[facility] 00:00:00 (Yearly) [code = DM Retinal Exam (Yearly)] Future Scheduled 1985 Di[facility] 00:00:00 examination (regime/therapy) [code = 670609644] Future Scheduled 1985 Urine screening for [facility] 00:00:00 protein (procedure) [code = 539885297] Future Scheduled 1985 DM [facility]inal Exam [facility] 00:00:00 (Yearly) [code = DM Retinal Exam (Yearly)] Future Scheduled 1985 Di[facility] 00:00:00 examination (regime/therapy) [code = 402250410] Future Scheduled 1985 Urine [facility] for [facility] 00:00:00 protein (procedure) [code = 979837359] Future Scheduled 1985 DM [facility]inal Ex[facility] 00:00:00 (Yearly) [code = DM Retinal Exam (Yearly)] Future Scheduled 1985 DM Foot Exam (Yearly) [facility] 00:00:00 [code = DM Foot Exam (Yearly)] Future Scheduled 1985 Urine screening for [facility] 00:00:00 protein (procedure) [code = 442210732] Future Scheduled 1967 COVID-19 Vaccine (#1) [facility] [...] [facility] Test 00:00:00 measurement (procedure) [code = 66420816] Future Scheduled 1967 Hemoglobin A1c [facility] 00:00:00 measurement (procedure) [code = 44035903] Future Scheduled 1967 Hemoglobin A1c [facility] 00:00:00 measurement (procedure) [code = 42742604] Future Scheduled 1967 Hemoglobin A1c [facility] 00:00:00 measurement (procedure) [code = 83316420] Future Scheduled 1967 Hemoglobin A1c [facility] 00:00:00 measurement (procedure) [code = 21271966] Future Scheduled 1967 Fluoride Varnish [code [facility] 00:00:00 = Fluoride Varnish] Future Scheduled 1967 Hemoglobin A1c [facility] 00:00:00 measurement (procedure) [code = 82564893] Future Scheduled 1967 Fluoride Varnish [code [facility] 00:00:00 = Fluoride Varnish] Future Scheduled 1967 Hemoglobin A1c [facility] 00:00:00 measurement (procedure) [code = 69339670] Future Scheduled 1967 Hemoglobin A1c [facility] 00:00:00 measurement (procedure) [code = 25619158] Future Scheduled 1967 Hemoglobin A1c [facility] 00:00:00 measurement (procedure) [code = 98085975] Future Scheduled 1967 Hemoglobin A1c [facility] 00:00:00 measurement (procedure) [code = 95771960] Future Scheduled 1967 Hemoglobin A1c [facility] 00:00:00 measurement (procedure) [code = 13580647] Future Scheduled 1967 Hemoglobin A1c [facility] 00:00:00 measurement (procedure) [code = 29474810] Encounters Start End Encounter Admission Attending Care Care Encounter Source Date/Time Date/Time Type Type Clinicians Facility Department ID 2023-01-25 Outpatient [id number] [id number] 2CD8 DFC8-8 [facility] 14:44:17 6AF8-846Z F6-482A-BC2 FF6-482A- B l -QW94-T44 8-Q8240Y432 L17-P1843P [place] 69A287N93 C24 728C24 2022-12-13 Outpatient [id number]- [id number]-KU D848 53FB-E [facility] 14:44:37 PG3J-1592 8A-4711-9E7 B4U-0727- 9 l -1A5O-CWN B-SYE31Z100 G8Z-WXW61G Gu[place] 80H29089V 53C 88741W 2022-12-10 Outpatient [id number]- [id number]-63 4A22 92EF-6 [facility] 22:20:45 69F8-226Q E6-428F-910 7G0-021G- 9 l -9100-AED 0-PFU129095 100-PUH054 Gu[place] 250018T58 D82 616D82 2022-12-05 Outpatient [id number]- K5C870WW-81 B9E6 20FB-3 [facility] 00:38:36 70Q4-048N B8-416D-815 0P9-232W- 8 l -8153-A18 3-B52W09A0Z 153-A18A09 [place] O87P4VS91 C76 B5BC76 2022-10-14 Outpatient [id number]- M5238V63-3B A598 2A76-1 [facility] 00:41:12 0XS8-1P0Y B3-9C4P-09V BB3-4D6D- 9 l -81O8-835 5-392UH8601 8L6-726ON3 [place] LO0073VAQ CBB 615CBB 2022-09-26 Outpatient 0ELE0D13- 3EGC5D35-YP 8BAA 2C28-B [facility] 22:55:52 BDD8-45A9 D8-30F4-C44 DD8-45A9- A l -Y58J-566 C-1966R3G4Y 65C-0738A6 [place] 5F4D5G0QI 9CA A9E9CA 2022-09-23 Outpatient [id number]- 7H7B0623-88 9A1A 7215-2 [facility] 15:40:06 12A3-8382 D4-4114-817 2E8-0037- 8 l -8170-0E7 0-8L36702X4 170-0F4198 [place] 5455S01W8 1C5 7F51C5 2022-09-18 Outpatient L80OBW67- Z39GGC29-00 B36D ED90-5 [facility] 10:27:41 541D-469D 1D-469D-BD0 41D-469D- B l -WV69-25D 8-03A2RH622 T64-68T4LK [place] 7TV62900G 07A 64889Y 2022-09-05 Outpatient 20273GE1- 32494QZ8-17 2321 5DA0-4 [facility] 19:47:40 4550-4F68 50-1H57-2IT 550-4F68- 9 l -1FR8-L36 8-Y600S8XG3 EF8-C365D8 [place] 6Y1LQ2H66 C31 EA8C31 2022-08-22 Outpatient 697VC3WX- 189YJ4BK-XK 040A D3FD-E [facility] 13:17:42 EEDC-4D67 DC-0V99-A0Q EDC-4D67- B l -B7V3-JF4 8-IC3031980 5O0-NN9110 [place] [id number] 901 144301 0339-05-01 Outpatient 60309K45- 63899A26-L2 2664 7F96-A [facility] 10:26:06 F6Y6-0B91 D0-7M28-QG6 4O8-1O99- B l -QI3Y-H01 D-D76V208X5 X9A-S57F28 [place] S343I4854 284 5D2970 2022-07-01 Outpatient 68DK42K4- 80IQ66I9-7A 52CB 02A8-1 [facility] 18:22:57 3C64-0J9Q 86-4W9Y-L6L U44-9W3X- A l -D0FZ-304 F-599B980MD 7DF-972C65 [place] N928VW543 841 3TY166 2022-06-25 Outpatient H858KJ2I- O447ZV1P-37 C555 AD3A-6 [facility] 13:13:28 6801-408F 01-408F-9CD 801-408F- 9 l -3IY8-2S9 5-0X54X1562 CD5-9B11D0 [place] 1O5552EMX CAF 333CAF 2022-06-21 Outpatient 921088GL- 225718OB-72 2314 01CA-8 [facility] 16:24:21 8273-427F 73-427F-927 273-427F- 9 l -9279-910 9-4584256YU 279-017325 [place] 5795ID64N 00D 8DD00D 2022-05-10 Outpatient 2P4WK897- 2R6DK669-G5 2E9D D710-A [facility] 06:40:42 H89M-64N9 5F-88F8-75F 65F-48A2- 9 l -36C6-0Z2 9-4U146WSRZ 7K1-1Z191F [place] 69KJLE993 329 JYG851 2022-05-08 Outpatient YFO2ESF7- FIO7THW1-01 BEF6 CBA3-5 [facility] 15:37:53 503B-4880 3B-4880-9B6 03B-4880- 9 l -0R5D-7KE D-2ADR73749 M0E-4CJL29 [place] X65408L92 C18 509C18 2022-04-19 Outpatient 4DPA7Q4V- 2HYA3D4H-65 1BBB 5C0D-8 [facility] 13:59:31 87P6-0964 F1-4973-998 4N4-4971- 9 l -998B-F76 B-J29473149 98B-Y86002 [place] [id number] 327 962235 6279-12-28 Outpatient 94SQL77W- 53UTB12F-SV 79BE F91E-D [facility] 13:31:43 DAD3-4873 D3-4873-877 AD3-4873- 8 l -8771-2E6 1-9O7E377I6 771-2E6E91 [place] Q157I8885 342 6L6176 2022-04-13 Outpatient 1272Y3J5- 6042N9X1-23 4505 A0B3-1 [facility] 15:36:01 15FB-4C6B FB-2W7W-F71 5FB-4C6B- A l -U35M-K83 B-L80F7S771 59B-D42D0C [place] Z7S335D6O A6F 833A6F 2022-04-12 Outpatient 78M8UZH4- 29D8XTF0-9W 06B9 BCB5-0 [facility] 15:30:39 6S34-8YY9 07-3OA0-621 R77-9ZE7- 9 l -9202-AD6 2-CV51H54IL 202-AD61D6 [place] 6G81POZ70 A84 7EAA84 2022-03-11 Outpatient 713J9XJ6- 254O5LW0-96 938D 5EE5-8 [facility] 19:30:21 857A-4A82 7A-3Q53-C7U 57A-4A82- B l -Y5U9-2D0 5-6G51548CQ 6T7-2T7282 [place] 4715JA208 155 4TB996 2022-03-08 Outpatient [id number]- 4L070853-50 3A45 0898-9 [facility] 21:44:29 9339-4C22 39-3G38-Y10 339-4C22- A l -K45V-35T E-82N76AGUA 45E-85D07A [place] 88TLFP295 545 MAH721 2022-01-04 Outpatient 9NQP8LMX- 3XPC5FWU-4I 9DDA 6CAA-4 [facility] 07:00:32 9O02-2139 77-4012-BA3 O99-2396- B l -VZ99-U46 9-C86GEYHW6 Y38-H87XFA [place] QGCIV4QS8 CD2 AD3CD2 2021-12-31 Outpatient [id number]- 217405L4-H5 3447 38E1-B [facility] 12:10:15 Z6Q8-646M E1-485D-91D 9S1-762E- 9 l -24N7-J92 2-K17835798 5Y0-S52096 [place] 028033UG8 AC5 327AC5 2021-10-07 Inpatient RoaELEANORBM HCABM [id number] [facility] 06:58:00 Jerry [id number] [facility] 2021-07-14 Outpatient [facility] [id number] [place] 04:59:20 [id number] [facility] 2021-06-28 Outpatient [facility] LS [id number] [place] 15:37:52 [id number] [facility] 2021-06-15 Outpatient [facility] [id number] [place] 11:20:44 [id number] [facility] 2021-03-30 Outpatient 2618JU01- 5054IE58-8X 9110 FB25-7 Memoria 23:09:22 9C56-690S 85-469A-9A5 L90-465K- 9 l -1N7A-W31 B-Z5130K257 O5K-D2898B [place] 87N846W82 B38 918B38 2020-06-30 Inpatient HCAKW HCAKW [id number] [facility] 09:04:59 17 [facility] 2020-02-27 Inpatient HCACR AMA [id number] [facility] 13:37:00 01 [facility] 2019-10-08 Inpatient HCABM NCER [id number] [facility] 12:23:00 18 [facility] 2023-02-14 2023-02-14 Outpatient GERMAN MCDOWELL [facility] [id number] Univers 12:00:00 12:00:00 EVERARDO, GERMAN [facility] 2023-01-30 2023-01-30 Outpatient R DUANE [facility] [id number] Univers 14:30:00 14:30:00 SENDIL ity [facility] 2023-01-07 2023-01-07 [facility] 1.2.640.956 [id number] Univers 00:00:00 00:00:00 Alexandra CHAMBERS 350.1.13.10 i [place] [phone] Ar dical NAL 044 [facility] 2022-12-30 2022-12-30 [facility] [id number] Univers 15:00:00 15:00:00 BLANCA [facility] 2022-12-24 2022-12-24 Orders Doctor LIBERTY 1.2.840.114 [id number] Univers 00:00:00 00:00:00 Only Unassigned, BRANDEE 350.1.13.[address] [facility] 4.2.7.2.686 Suhas as [id number] [address] 2022-12-17 2022-12-17 Outpatient R JULIANN [facility] [id number] Univers 08:30:00 08:30:00 JENI [facility] 2022-12-16 2022-12-16 Pattern Duplicator 2, Adc Lab [facility] 1.2.840.114 [id number] Univers 13:45:00 14:27:13 Visit Alexandra Finnegan 350.1.13.10 ity [facility] [place] [id number] Ar dical NAL 353 [facility] 2022-12-16 2022-12-16 [facility] [id number] Univers 13:00:00 13:41:28 ALEXANDRA [facility] 2022-12-16 2022-12-16 Office [facility] 1.2.840.114 [id number] Univers 13:00:00 13:41:28 Visit Alexandra CHAMBERS 350.1.13.10 i [place] [id number] Ar dicmayank NAL [facility] BUILDING 2022-12-13 2022-12-13 Outpatient R KAIN [facility] [id number] Univers 11:30:00 11:30:00 ALEXANDRA ity of [facility] 2022-12-11 2022-12-11 Telephone [facility] 1.2.840.114 [id number] Univers 00:00:00 00:00:00 Blanca JOHNPEC 350.1.13.[address] [facility] [place] [id number] [facility] AND [address] [facility] 2022-12-10 2022-12-10 Outpatient R RENEE [facility] [id number] Univers 16:00:00 16:00:00 LEIGHTON JEFFERSON it y of [facility] 2022-12-05 2022-12-05 [facility]de[facility]ira [facility] 1.2.840.114 [id number] Univers 00:00:00 00:00:00 Alexandra [facility] 350.1.13.10 it y of [place] 4.2.7.2.686 Suhas as ИРИНА?BLEA [id number] Ar kelsea WEI [address] [place] [address] 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 BUILDING 2022-12-03 2022-12-03 Outpatient R JULIANN [facility] [id number] Univers 08:00:00 08:00:00 JENI ity of [facility] 2022-11-14 2022-11-14 Telephone [facility] 1.2.840.114 [id number] Univers 00:00:00 00:00:00 Ramón CHAMBERS 350.1.13.10 it[place] [id number] Ar dical NAL [facility] BU[facility]ING 2022-11-08 2022-11-08 Orders Doctor KOENIG 1.2.840.114 [id number] Univers 00:00:00 00:00:00 Only Unassigned, BRANDEE 350.1.13.10 ity of [place] [facility] 4.2.7.2.686 Suhas as [id number] [address] 2022-11-06 2022-11-06 Office Nimo [facility] 1.2.840.114 [id number] Univers 14:30:00 14:40:59 Visit Sloanejaeangelo TRISH 350.1.13.10 ity of [facility] 4[place].2.[place] [phone] [address] 2022-11-06 2022-11-06 Office Nimo [facility] 1.2.840.114 [id number] Univers 13:30:00 14:39:47 Visit Sloanejaeangelo [place] 350.1.13.10 ity [place] [id number] [address] 2022-11-06 2022-11-06 Outpatient R RAMÓN KRAFT [facility] [id number] Univers 13:30:00 14:39:47 RAMÓN KRAFT [facility] 2022-10-21 2022-10-21 Outpatient R MORENITA [facility] [id number] Univers 13:30:00 13:30:00 PATRICK [facility] 2022-10-16 2022-10-16 [facility]de[facility]ira [facility] 1.2.840.114 [id number] Univers 00:00:00 00:00:00 Alexandra CHAMBERS 350.1.13.10 i ty [place] [id number] [address] 2022-10-11 2022-10-11 Outpatient R LEIA [facility] [id number] Univers 08:00:00 08:00:00 MICHELINE [facility] 2022-10-02 2022-10-02 Telephone [facility] 1.2.888.571 [id number] Univers 00:00:00 00:00:00 Alexandra CHAMBERS 350.1.13.10 i ty of [facility] 4.2.7.2.[place] [id number] [facility] 231 [facility] 2022-09-25 2022-09-25 Orders Doctor LIBERTY 1.2.840.114 [id number] Univers 00:00:00 00:00:00 Only Unassigned, BRANDEE 350.1.13.10 it[facility] 4.2.7.2.686 Suhas as [id number] [address] 2022-09-20 2022-09-20 Outpatient [facility] [id number] Univers 13:00:00 13:00:00 JENI ity [facility] 2022-09-18 2022-09-[address] [facility] 1.2.406.920 [id number] Univers 00:00:00 00:00:00 Alexandra CHAMBERS 350.1.13.10 i ty [place] [id number] [facility] 044 [facility] 2022-09-18 2022-09-[address] [facility] 1.2.004.239 [id number] Univers 00:00:00 00:00:00 Alexandra CHAMBERS 350.1.13.10 i ty [place] [id number] [facility] 044 [facility] 2022-09-17 2022-09-17 [facility] 1.2.840.114 [id number] Univers 00:00:00 00:00:00 Jeni CHAMBERS 350.1.13.10 i ty [place] [id number] [facility] 204 [facility] 2022-09-13 2022-09-13 Outpatient R [facility] [id number] Univers 11:00:00 11:00:00 ity of [facility] 2022-09-13 2022-09-13 Telephone [facility] 1.2.840.114 [id number] Univers 00:00:00 00:00:00 Ramón CHAMBERS 350.1.13.10 ity [place] [id number] Ar dical NAL 044 [facility] 2022-09-13 2022-09-13 Telephone Juliann [facility] 1.2.840.114 [id number] Univers 00:00:00 00:00:00 Jeni [place] 350.1.13.10 i ty of [place] [id number] Ar dical NAL 204 [facility] 2022-09-12 2022-09-12 Emergency [facility] 1.2.840.114 [id number] Univers 21:33:00 22:56:00 Hui CHAMBERS 350.1.13.10 ity [facility] 4.2.7.2.[place] [id number] [facility] [address] [place] 2022-09-12 2022-09-12 [facility] ERT [id number] Univers 15:07:02 21:32:00 ALEXANDRA espana [facility] 2022-09-12 2022-09-[address] [facility] 1.2.840.114 [id number] Univers 15:07:02 21:32:00 Encounter Alexandra CHAMBERS 350.1.13.10 ity of [facility] 4.2.7.2.[place] [id number] [facility] [address] [place] 2022-09-12 2022-09-12 Pattern Duplicator 2, Adc Lab [facility] 1.2.840.114 [id number] Univers 15:30:00 15:45:00 Visit Alexandra Finnegan 350.1.13.10 ity of [facility] 4.2.7.2.[place] [id number] Ar dical NAL 353 [facility] 2022-09-12 2022-09-12 Outpatient R KAIN [facility] [id number] Univers 13:30:00 14:26:44 ALEXANDRA espana [facility] 2022-09-12 2022-09-[address] [facility] 1.2.840.114 [id number] Univers 13:30:00 14:26:44 Visit Alexandra CHAMBERS 350.1.13.10 i ty of [place] [id number] Ar dical NAL [address] [place] [address] 2022-09-12 2022-09-[address] [facility] 1.2.097.310 [id number] Univers 00:00:00 00:00:00 Alexandra [place] 350.1.13.10 i ty [place] [id number] Ar dical NAL [address] [place] [address] 2022-09-12 2022-09-[address] [facility] 1.2.887.790 [id number] Univers 00:00:00 00:00:00 Alexandra [place] 350.1.13.10 i ty [facility] 4.2.7.2.[place] [id number] Ar dical NAL [address] [place] [address] 2022-09-11 2022-09-11 [facility]phone [facility] 1.2.840.114 [id number] Univers 00:00:00 00:00:00 Ignaciou [place] 350.1.13.10 ity of [facility] 4.2.7.2.[place] [id number] [facility] NAL [address] [place] [address] 2022-09-10 2022-09-10 Outpatient R JULIANN [facility] [id number] Univers 10:30:00 11:36:35 JENI ity of [facility] 2022-09-06 2022-09-06 Telephone [facility] 1.2.840.114 [id number] Univers 00:00:00 00:00:00 Ignaciou [place] 350.1.13.10 ity of [facility] 4.2.7.2.[place] [id number] Ar dicnm NAL [address] [place] [address] 2022-09-06 2022-09-06 Telephone Nimo [facility] 1.2.840.114 [id number] Univers 00:00:00 00:00:00 Ogbasiliou [place] 350.1.13.10 ity of [facility] 4.2.7.2.[place] [id number] Me dical NAL 044 [facility] 2022-09-05 2022-09-05 Refill Nimo [facility] 1.2.840.114 [id number] Univers 00:00:00 00:00:00 Ogsocorroukwu [place] 350.1.13.10 ity [place] [id number] Ar dical NAL 044 [facility] 2022-09-04 2022-09-04 Patient Bao, [facility] 1.2.840.114 [id number] Univers 00:00:00 00:00:00 Outreach Mari Schmitz [place] 350.1.13.10 it[place] [id number] [facility] NAL 231 [facility] 2022-09-04 2022-09-04 Orders Doctor LIBERTY 1.2.840.114 [id number] Univers 00:00:00 00:00:00 Only Unassigned, BRANDEE 350.1.13.10 ity [facility] 4.2.7.2.686 Suhas as [id number] [address] 2022-09-02 2022-09-02 Telephone [facility] 1.2.840.114 [id number] Univers 00:00:00 00:00:00 Ogranjaeu [place] 350.1.13.10 [place] [id number] Ar dical NAL 044 [facility] 2022-08-30 2022-08-30 [facility]phone [facility] 1.2.840.114 [id number] Univers 00:00:00 00:00:00 Ogranwu [place] 350.1.13.10 [place] [id number] Ar dical NAL 044 [facility] 2022-08-28 2022-08-28 Telephone [facility] 1.2.840.114 [id number] Univers 00:00:00 00:00:00 Ogranwu [place] 350.1.13.10 [facility] 4.2.[place].2.[place] [id number] Ar dical NAL 231 [facility] 2022-08-27 2022-08-27 [facility]phone [facility] 1.2.840.114 [id number] Univers 00:00:00 00:00:00 Ogechukwu [place] 350.1.13.10 [place] [id number] Ar dical NAL 044 [facility] 2022-08-27 2022-08-27 Telephone [facility] 1.2.840.114 103 [id number] Univers 00:00:00 00:00:00 Ogechukwu [place] 350.1.13.10 [place] [phone] [facility] 044 [facility] 2022-08-26 2022-08-26 Orders Doctor KOENIG 1.2.840.114 [id number] Univers 00:00:00 00:00:00 Only Unassigned, BRANDEE 350.1.13.10 ity of [place] [facility] 4.2.7.2.686 Suhas as [phone] [address] 2022-08-26 2022-08-26 Telephone [facility] 1.2.840.114 103 [id number] Univers 00:00:00 00:00:00 Ogechukwu [place] 350.1.13.10 [place] [id number] Ar dical NAL 044 [facility] 2022-08-21 2022-08-21 Abstract [facility] 1.2.475.044 [id number] Univers 00:00:00 00:00:00 Ogechukwu [place] 350.1.13.10 [place] [id number] Ar dical NAL 044 [facility] 2022-08-19 2022-08-19 Telephone [facility] 1.2.840.114 [id number] Univers 00:00:00 00:00:00 Ramón CHAMB[place] 350.1.13.10 [place] [phone] Ar dical NAL [address] [place] [address] 2022-08-15 2022-08-15 Outpatient R BRANDTJOHNNYLELIA [facility] [id number] Univers 15:40:00 15:40:00 LEIGHTON JEFFERSON it y of [facility] 2022-08-14 2022-08-14 Emergency [facility] [id number] Univers 00:06:00 03:01:00 LES ity of [facility] 2022-08-14 2022-08-14 Emergency [facility] 1.2.840.114 1 [id number] Univers 00:06:00 03:01:00 Les CHAMBERS 350.1.13.10 i [place] [id number] [facility] [address] 2022-08-08 2022-08-08 Outpatient R CIARA [facility] [id number] Univers 16:45:00 15:22:09 BLAS ity of [facility] 2022-08-07 2022-08-07 Orders Doctor LIBERTY 1.2.840.114 [id number] Univers 00:00:00 00:00:00 Only Unassigned, BRANDEE 350.1.13.10 ity of [place] [facility] 4.2.7.2.686 Suhas as [phone] [facility] [address] 2022-08-07 2022-08-07 [facility] 1.2.840.114 [id number] Univers 00:00:00 00:00:00 Ramón CHAMBERS 350.1.13.10 [place] [id number] Ar dicnm NAL 044 [facility] 2022-08-05 2022-08-05 Outpatient R RAMÓN KRAFT [facility] [id number] Univers 13:00:00 14:16:22 RAMÓN KRAFT ity of [facility] 2022-08-05 2022-08-05 Office [facility] [place] 1.2.840.114 [id number] 9187 Univers 13:00:00 14:16:22 Visit Ramón CHAMBERS 350.1.13.10 [place] [phone] Ar dical NAL 044 [facility] 2022-08-05 2022-08-05 Patient Bao [facility] 1.2.840.114 [id number] Univers 00:00:00 00:00:00 Outreach Mari CHAMBERS 350.1.13.10 [place] [phone] [facility] 044 [facility] 2022-08-02 2022-08-02 Orders Doctor LIBERTY 1.2.840.114 [id number] 861 Univers 00:00:00 00:00:00 Only Unassigned, BRANDEE 350.1.13.10 ity of [place] [facility] 4.2.7.2.686 Suhas as [phone] [facility] 009 [address] 2022-08-02 2022-08-02 Telephone LIBERTY Mcneal 1.2.840.114 10 [id number] Univers 00:00:00 00:00:00 Clare IRVIN 350.1.13.10 it y of HOSPITAL 4.2.7.2.686 Suhas as [phone] [facility] 025 [place] 2022-08-01 2022-08-01 Transition TANI Snow 1.2.840.114 102 [id number] Univers 00:00:00 00:00:00 of Care Alex Rian MORALES 350.1.13.10 [place] [phone] [facility] 403 [address] 2022-08-01 2022-08-01 Telephone LIBERTY Mcneal 1.2.840.114 10 [id number] Univers 00:00:00 00:00:00 Clare IRVIN 350.1.13.10 it y of HOSPITAL 4.2.7.2.686 Suhas as [phone] [facility] 025 [place] 2022-07-28 2022-07-31 [facility] [id number] Univers 01:36:00 19:14:00 MALIK ity [facility] 2022-07-28 2022-07-31 [facility] Brennan Love 1.2.840.114 [id number] Univers 01:36:00 19:14:00 Encounter Malik Mayo 350.1.13.10 ity of [facility] 4.2.7.2.686 [facility] [phone] [place] 963006 [place] 2022-07-18 2022-07-19 Emergency [facility]ly [facility] 1.2.912.837 7246 73013 Univers 21:30:00 01:47:00 [facility] TRISH 350.1.13.10 [facility] 4.2.7.2.686 [facility] [phone] [place] [id number] [place] 2022-07-18 2022-07-19 Emergency X [facility] [id number] Univers 21:30:00 01:47:00 AODLFO [facility] 2022-06-25 2022-07-03 [facility] 1.2.840.1 [id number] Methodi 10:52:00 03:00:00 Encounter Wilberto Joe 91207.1.[address] Naif Cartagena 3.430.2.7 H ospita .3.945662 l .8 2022-06-25 2022-07-03 [facility] Ubaldo Stevensa 1.2.840.1 [id number] Methodi 10:52:00 03:00:00 Encounter Wilberto Joe 40593.1.[address] Edmund Cartagenamin 3.430.2.7 H ospita .3.475729 l .8 2022-07-03 2022-07-03 Documentat Jose Alberto, 1.2.840.1 [id number] 2 [id number] Methodi 00:00:00 00:00:00 ion Cheryle 60649.1.[address] 3.430.2.7 Hospit a .3.766803 l .8 2022-07-03 2022-07-03 Documentat Abrams, 1.2.840.1 [id number] 2 [id number] Methodi 00:00:00 00:00:00 ion Cheryle 95089.1.[address] 3.430.2.7 Hospit a .3.489948 l .8 2022-06-26 2022-06-26 Surgery Nurko, 1.2.840.1 [id number] 667408 2485 Methodi 16:50:00 18:20:[address] 3.430.2.7 Hospit a .3.809137 l .8 2022-06-26 2022-06-26 Surgery Nurko, 1.2.840.1 [id number] 985193 5121 Methodi 16:50:00 18:20:[address] 3.430.2.7 Hospit a .3.386695 l .8 2022-06-26 2022-06-26 Anesthesia [facility] 1.2.840.1 104 065009 [id number] Methodi 16:46:00 17:36:00 Event Thong Torres 33228.1.[address] 3.430.2.7 Hospit a .3.549062 l .8 2022-06-26 2022-06-26 Anesthesia [facility] 1.2.840.1 104 265245 [id number] Methodi 16:46:00 17:36:00 Event Thong Torres 91043.1.[address] 3.430.2.7 Hospit a .3.869639 l .8 2022-06-25 2022-06-25 Office Nur, 1.2.840.1 [id number] 054668 4472 Methodi 09:00:00 10:28:55 Visit Davin 77132.1.[address] 3.430.2.7 Hospit a .3.029383 l .8 2022-06-25 2022-06-25 Office Nurko, 1.2.840.1 [id number] 770443 8222 Methodi 09:00:00 10:28:55 Visit Davin 46301.1.[address] 3.430.2.7 Hospit a .3.064676 l .8 2022-06-25 2022-06-25 Travel 1.2.840.1 1.2.198.253 4720 494681 Methodi 00:00:00 00:00:[address] 3.430.2.7 0.2.7.3.698 Ho spita .3.943862 084.8 l .8 2022-06-25 2022-06-25 Travel 1.2.840.1 1.2.665.076 8012 281295 Methodi 00:00:00 00:00:[address] 3.430.2.7 0.2.7.3.698 Ho spita .3.922254 084.8 l .8 2022-06-21 2022-06-21 Office Davin Walker 1.2.840.1 [id number] Methodi 13:00:00 14:47:04 Visit Louisa Escobar 01948.1.[address] 3.430.2.7 Hospit a .3.648686 l .8 2022-06-21 2022-06-21 Office Davin Walker 1.2.840.1 [id number] Methodi 13:00:00 14:47:04 Visit Louisa Escobar 41631.1.[address] 3.430.2.7 Hospit a .3.048308 l .8 2022-06-21 2022-06-21 Travel 1.2.840.1 1.2.742.055 3333 450910 Methodi 00:00:00 00:00:[address] 3.430.2.7 0.2.7.3.698 Ho spita .3.699923 084.8 l .8 2022-06-21 2022-06-21 Travel 1.2.840.1 1.2.996.639 1892 635668 Methodi 00:00:00 00:00:[address] 3.430.2.7 0.2.7.3.698 Ho spita .3.187849 084.8 l .8 2022-06-14 2022-06-14 Office Nur, 1.2.840.1 250028439 387019 6013 Methodi 13:10:00 13:23:28 Visit Davin 57778.1.[address] 3.430.2.7 Hospit a .3.619287 l .8 2022-06-14 2022-06-14 Office Nur, 1.2.840.1 [id number] 774884 2415 Methodi 13:10:00 13:23:28 Visit Davin 69966.1.[address] 3.430.2.7 Hospit a .3.183276 l .8 2022-06-14 2022-06-14 Travel 1.2.840.1 1.2.147.443 5103 199216 Methodi 00:00:00 00:00:[address] 3.430.2.7 0.2.7.3.698 Ho spita .3.247293 084.8 l .8 2022-06-14 2022-06-14 Travel 1.2.840.1 1.2.371.546 3809 451547 Methodi 00:00:00 00:00:[address] 3.430.2.7 0.2.7.3.698 Ho spita .3.688411 084.8 l .8 2022-05-24 2022-05-24 Office Nur, 1.2.840.1 442151438 516878 5859 Methodi 14:00:00 14:54:06 Visit Davin 07050.1.[address] 3.430.2.7 Hospit a .3.136674 l .8 2022-05-24 2022-05-24 Office Nur, 1.2.840.1 457298446 889714 3333 Methodi 14:00:00 14:54:06 Visit Davin 97068.1.[address] 3.430.2.7 Hospit a .3.629683 l .8 2022-05-24 2022-05-24 Travel 1.2.840.1 1.2.549.136 1416 668441 Methodi 00:00:00 00:00:[address] 3.430.2.7 0.2.7.3.698 Ho spita .3.879511 084.8 l .8 2022-05-24 2022-05-24 Travel 1.2.840.1 1.2.826.164 2103 493455 Methodi 00:00:00 00:00:[address] 3.430.2.7 0.2.7.3.698 Ho spita .3.935839 084.8 l .8 2022-05-08 2022-05-14 [facility] Kenneth Helms 1.2.840.1 [id number] Methodi 11:57:00 14:24:00 Encounter Noman Brewer 80894.1.[address] HarinderRon el Ding 3.430.2.7 Hospita .3.565487 l .8 2022-05-08 2022-05-[address] 1.2.840.1 [id number] [id number] Methodi 11:57:00 14:24:00 Encounter Noman Brewer 31847.1.[address] Ron Pizano Ding 3.430.2.7 Hospita .3.733040 l .8 2022-05-14 2022-05-14 Documentat [facility], 1.2.840.1 [id number] Methodi 00:00:00 00:00:00 ion Alyse 72782.1.[address] 3.430.2.7 Hospit a .3.456596 l .8 2022-05-14 2022-05-14 Documentat [facility], 1.2.840.1 [id number] Methodi 00:00:00 00:00:00 [address] Alyse 44558.1.[address] 3.430.2.7 Hospit a .3.767629 l .8 2022-05-10 2022-05-10 Surgery Nurko, 1.2.840.1 221274883 732427 5251 Methodi 11:00:00 13:05:[address] 3.430.2.7 Hospit a .3.593245 l .8 2022-05-10 2022-05-10 Surgery Nurko, 1.2.840.1 545038361 546651 9623 Methodi 11:00:00 13:05:[address] 3.430.2.7 Hospit a .3.757248 l .8 2022-05-10 2022-05-10 Anesthesia Beulah Barcenas 1.2.840.1 084318 023 [id number] Methodi 11:12:00 12:34:00 Event Mari Gamboa 17003.1.[address] 3.430.2.7 Hospit a .3.989209 l .8 2022-05-10 2022-05-10 Anesthesia Beulah Barcenas 1.2.840.1 833821 023 2434187170 Methodi 11:12:00 12:34:00 Event Mari Gamboa 78889.1.[address] 3.430.2.7 Hospit a .3.491246 l .8 2022-04-24 2022-04-24 Patient Carroll, 1.2.840.1 383819085 75943 64564 Methodi 00:00:00 00:00:00 Outreach Cheri 95843.1.1 432 s t 3.430.2.7 Hospit a .3.304293 l .8 2022-04-24 2022-04-24 Patient [place], 1.2.840.1 102894658 72194 12973 Methodi 00:00:00 00:00:00 Outreach Cheri 03198.1.1 432 s t 3.430.2.7 Hospit a .3.384160 l .8 2022-04-12 2022-04-19 [facility], Fortino Feldman 1.2.840 .1 [id number] Methodi 15:27:00 19:06:00 Encounter Hector Orozco 38514.1.1 [address] [facility] 3.430.2.7 Hospita PastorUriel .3.221649 l Barbaraalljulita, July .8 2022-04-12 2022-04-19 [facility] Fortino Feldman 1.2.840 .1 839288389 [id number] Methodi 15:27:00 19:06:00 Encounter Hector Orozco 32093.1.1 [address] Efren 3.430.2.7 Hospita PastorUriel .3.247385 l Nadericalli, July .8 2022-04-19 2022-04-19 Anesthesia Tu, 1.2.840.1 487572014 966 7571972 Methodi 14:04:00 14:26:00 Event Ga-Vale 68823.1.[address] Thi 3.430.2.7 Hospit a .3.978313 l .8 2022-04-19 2022-04-19 Anesthesia Tu, 1.2.840.1 493088684 765 3255351 Methodi 14:04:00 14:26:00 Event Jesus 04257.1.[address] Thi 3.430.2.7 Hospit a .3.261859 l .8 2022-03-08 2022-03-14 [facility] 4482257 2072138819 Methodi 22:25:00 20:26:00 Encounter Jeff Short Thi 23477.1.1 934 [facility], Ron Ding [facility]430.2.7 [facility] Ch[facility] Carbajal .3.288644 l Noman Brewer .8 2022-03-08 2022-03-14 [facility] Laxmi Carbajal 1.2.840.1 10 0175816 [id number] Methodi 22:25:00 20:26:00 Encounter Jeff Short 65911.1.[address] Ron Pziano 3.430.2.7 [facility] .3.322116 l Noman Brewer .8 2022-03-12 2022-03-12 Surgery Nurko, 1.2.840.1 750829055 496289 6394 Methodi 14:03:00 15:48:[address] 3.430.2.7 Hospit a .3.039976 l .8 2022-03-12 2022-03-12 Surgery Nur, 1.2.840.1 044370372 502240 8019 Methodi 14:03:00 15:48:[address] 3.430.2.7 Hospit a .3.399700 l .8 2022-03-12 2022-03-12 Anesthesia Urrutia, 1.2.840.1 689692757 160 3934220 Methodi 14:23:00 15:33:00 Event Mary Estevez 29112.1.[address] 3.430.2.7 Hospit a .3.734042 l .8 2022-03-12 2022-03-12 Anesthesia Urrutia, 1.2.840.1 800920636 076 2703563 Methodi 14:23:00 15:33:00 Event Mary Estevez 22641.1.[address] 3.430.2.7 Hospit a .3.271651 l .8 2022-03-08 2022-03-08 Travel 1.2.840.1 1.2.839.657 4438 072089 Methodi 00:00:00 00:00:[address] 3.430.2.7 0.2.7.3.698 Ho spita .3.835732 084.8 l .8 2022-03-08 2022-03-08 Travel 1.2.840.1 1.2.495.039 0374 026267 Methodi 00:00:00 00:00:[address] 3.430.2.7 0.2.7.3.698 Ho spita .3.049669 084.8 l .8 2022-01-01 2022-01-05 Inpatient EM RICHARDSON Lucas [facility] [id number] [facility] 16:59:00 12:20:00 Ab 66 [facility] 2021-12-10 2021-12-14 [facility] Wilberto Carbajal 1.2.840.1 104 916400 [id number] Methodi 21:52:00 15:50:00 Encounter Jarrett Rigozeina Meeks 49964.1.[address] René De Jesus 3.430.2.7 Hospita .3.640339 l .8 2021-12-10 2021-12-10 Travel 1.2.840.1 1.2.165.258 7855 218066 Methodi 00:00:00 00:00:[address] 3.430.2.7 0.2.7.3.698 Ho spita .3.088464 084.8 l .8 2021-11-08 2021-11-08 Emergency Mitzi, 1.2.840.1 [id number] 2100 079145 Methodi 10:26:00 14:01:[address] 3.430.2.7 Hospit a .3.865618 l .8 2021-10-10 2021-10-10 Emergency Fahad Anna 1.2.840.1 [id number] Methodi 20:57:00 23:49:[address] 3.430.2.7 Hospit a .3.013813 l .8 2021-10-07 2021-10-07 Emergency EM RICHARDSON Roa [facility] [id number] [facility] 06:46:00 07:39:00 Jerry Carter [facility] 2021-09-30 2021-09-30 Emergency EM Nataly [facility] [id number] [facility] 18:18:00 19:46:00 Margo 39 [facility] 2021-08-15 2021-08-15 Outpatient GC_HGMDA_Go PRIV PRIV 110 24711-5 [facility] 09:28:00 09:28:00 nzalez_J [id number] Medic al 2021-08-13 2021-08-13 Outpatient GC_HGMDA_Go PRIV PRIV 110 47381-3 [facility] 12:25:00 12:25:00 nzalez_J [id number] Medic al 2021-08-06 2021-08-06 Emergency EM RICHARDSON Dupont [facility] [id number] [facility] 15:06:00 18:56:00 Brennan 32 [facility] 2021-07-18 2021-07-18 Outpatient IDANIA [facility] [id number] 00:00:00 00:00:00 [facility] 2021-06-29 2021-06-29 Office 0 [place] [id number] 13:30:00 16:29:55 Visit 06 2021-06-29 2021-06-29 Outpatient Berta Schwab [facility] 2343 820-20 [place] 13:13:00 13:13:00 [place] [facility] [id number] [facility] 2021-03-22 2021-03-22 Travel 1.2.840.1 1.2.414.270 7167 [id number] Methodi 00:00:00 00:00:00 39131.1.1 350.1.13.43 887 3.430.2.7 0.2.7.3.698 Ho spita .3.336235 084.8 l .8 2021-02-02 2021-02-02 [id number]93 53918 Dru 14:47:00 17:56:00 Shazia burns 2021-02-02 2021-02-02 [facility] [id number] 13 [place] 15:08:10 15:31:04 [facility] 2021-01-02 2021-01-03 Emergency Juan, 1.2.840.1 [id number] 2 [id number] Methodi 18:54:00 01:22:00 Donaldo Ramos 56787.1.[address] 3.430.2.7 Hospit a .3.837740 l .8 2020-12-24 2020-12-24 [facility] [id number] [facility] 12:04:00 17:13:00 Jerry 01 [facility] Results Test Description Test Time Test Comments Results Result Comments Source CBC WITH DIFF 2022-12-16 21:59:01 Test Item Value Reference Range Interpretation Comme nts WBC (test code = 6690-2) 5.46 See_Comment [A utomated message] The system which ge nerated this result transmit yana reference range: 4.20 - 1 0.70 10*3/?L. The reference r maggi was not used to interpr et this result as normal/abnor mal. RBC (test code = 789-8) 3.38 See_Comment L [Au tomated message] The system which ge nerated this result transmit yana reference range: 4.26 - 5 .52 10*6/?L. The reference r maggi was not used to interpr et this result as normal/abnor mal. HGB (test code = 718-7) 9.6 g/dL 12.2-16.4 L HCT (test code = 4544-3) 31.4 % 38.4-49.3 L MCV (test code = 787-2) 92.9 fL 81.7-95.6 MCH (test code = 785-6) 28.4 pg 26.1-32.7 MCHC (test code = 786-4) 30.6 g/dL 31.2-35.0 L RDW-SD (test code = 40872-1) 54.8 fL 38.5-51.6 H RDW-CV (test code = 788-0) 16.2 % 12.1-15.4 H PLT (test code = 777-3) 400 See_Comment H [Au tomated message] The system which ge nerated this result transmit yana reference range: 150 - 32 8 10*3/?L. The reference range was not used to interpret th is result as normal/abnormal . MPV (test code = 39186-0) 9.9 fL 9.8-13.0 NRBC/100 WBC (test code = 0.0 See_Comment [ Automated message] The 6120954637) system which ge nerated this result transmit yana reference range: 0.0 - 10 .0 /100 WBCs. The reference r maggi was not used to interpr et this result as normal/abnor mal. NRBC x10^3 (test code = See_Comment [Au tomated message] The 6938250622) system which ge nerated this result transmit yana reference range: 10*3/?L. The reference range was not u sed to interpret this result as normal/abnormal . GRAN MAT (NEUT) % (test code 54.6 % = 770-8) IMM GRAN % (test code = 3.70 % 9218836941) LYMPH % (test code = 736-9) 31.5 % MONO % (test code = 5905-5) 7.3 % EOS % (test code = 713-8) 2.2 % BASO % (test code = 706-2) 0.7 % GRAN MAT x10^3(ANC) (test 2.98 10*3/uL 1.99-6.95 code = 5181337666) IMM GRAN x10^3 (test code = 0.20 10*3/uL 0.00-0.06 H 4986254658) LYMPH x10^3 (test code = 1.72 10*3/uL 1.09-3.23 731-0) MONO x10^3 (test code = 0.40 10*3/uL 0.36-1.02 742-7) EOS x10^3 (test code = 0.12 10*3/uL 0.06-0.53 711-2) BASO x10^3 (test code = 0.04 10*3/uL 0.01-0.09 704-7) Lab Interpretation (test Abnormal code = 66266-4) [facility] WITH [id number] 21:59:01 Test Item Value Reference Range Interpretation Comments WBC (test code = 5.46 See_Comment [Automated 6690-2) message] The sy stem which generated this result transmitted reference range : 4.20 - 10.70 10*3/?L. The reference range was not used to interpret this result as normal/abnormal . RBC (test code = 3.38 See_Comment L [Automated 789-8) message] The sy stem which generated this result transmitted reference range : 4.26 - 5.52 10*6/?L. The reference range was not used to interpret this result as normal/abnormal . HGB (test code = 9.6 g/dL 12.2-16.4 L 718-7) HCT (test code = 31.4 % 38.4-49.3 L 4544-3) MCV (test code = 92.9 fL 81.7-95.6 787-2) MCH (test code = 28.4 pg 26.1-32.7 785-6) MCHC (test code = 30.6 g/dL 31.2-35.0 L 786-4) RDW-SD (test code = 54.8 fL 38.5-51.6 H 79801-9) RDW-CV (test code = 16.2 % 12.1-15.4 H 788-0) PLT (test code = 400 See_Comment H [Automated 777-3) message] The sy stem which generated this result transmitted reference range : 150 - 328 10*3/ ?L. The reference r maggi was not used to interpret this result as normal/abnormal . MPV (test code = 9.9 fL 9.8-13.0 89607-4) NRBC/100 WBC (test 0.0 See_Comment [Automat ed code = 3099095731) message] The system which generated this result transmitted reference range : 0.0 - 10.0 /100 WBCs. The refer ence range was not u sed to interpret th is result as normal/abnormal . NRBC x10^3 (test code See_Comment [Auto mated = 7103636560) message] The s ystem which generated this result transmitted reference range : 10*3/?L. The reference range was not used to interpret this result as normal/abnormal . GRAN MAT (NEUT) % 54.6 % (test code = 770-8) IMM GRAN % (test code 3.70 % = 8526721451) LYMPH % (test code = 31.5 % 736-9) MONO % (test code = 7.3 % 5905-5) EOS % (test code = 2.2 % 713-8) BASO % (test code = 0.7 % 706-2) GRAN MAT x10^3(ANC) 2.98 10*3/uL 1.99-6.95 (test code = 7566937067) IMM GRAN x10^3 (test 0.20 10*3/uL 0.00-0.06 H code = 7767574664) LYMPH x10^3 (test code 1.72 10*3/uL 1.09-3.23 = 731-0) MONO x10^3 (test code 0.40 10*3/uL 0.36-1.02 = 742-7) EOS x10^3 (test code = 0.12 10*3/uL 0.06-0.53 711-2) BASO x10^3 (test code 0.04 10*3/uL 0.01-0.09 = 704-7) Lab Interpretation Abnormal (test code = 67736-3) [facility] [id number] 21:53:02 Test Item Value Reference Range Interpretation Comments TSH (test code = 0.20 See_Comment L [Automated message] 6971852573) The system [employer] generated this result transmitted ref erence range: 0.45 - 4 .70 mIU/L. The refe rence range was not u sed to interpret this result as normal/abnor mal. Lab Interpretation (test Abnormal code = 47895-0) [facility] [id number] 21:53:02 Test Item Value Reference Range Interpretation Comments TSH (test code = 0.20 See_Comment L [Automated message] 1775994486) The system [employer] generated this result transmitted ref erence range: 0.45 - 4 .70 mIU/L. The refe rence range was not u sed to interpret this result as normal/abnor mal. Lab Interpretation (test Abnormal code = 65060-1) [facility] [id number] 21:38:58 Test Item Value Reference Range Interpretation Comments FREE T4 (test code = 2.05 See_Comment [Autom ated message] 5028544736) The system [employer] generated this result transmitted ref erence range: 0.78 - 2 .20 ng/dL:. The ref erence range was not u sed to interpret this result as normal/abnor mal. Lab Interpretation (test Normal code = 57537-7) [facility] [id number] 21:38:58 Test Item Value Reference Range Interpretation Comments FREE T4 (test code = 2.05 See_Comment [Autom ated message] 5957270860) The system [employer] generated this result transmitted ref erence range: 0.78 - 2 .20 ng/dL:. The ref erence range was not u sed to interpret this result as normal/abnor mal. Lab Interpretation (test Normal code = 46502-7) [facility] (39474)(TOTAL CHOLESTEROL, TRIGLYCERIDES, HDL)2022-12-16 21:23:18 Test Item Value Reference Range Interpretation Comments CHOL (test code = 6619987796) 119 mg/dL 120-200 L HDL (test code = 1887464692) 28 mg/dL >=40 L HDLC RATIO (test code = 9743094122) 4.3 <=5.0 TRIG (test code = 4302661385) 118 mg/dL 30-170 LDL CHOL (test code = 06614-2) 67 mg/dL <=160 VLDL (test code = 7638434571) 24 mg/dL 5-60 Lab Interpretation (test code = Abnormal 95292-9) [id number]TOTAL CHOLESTEROL, TRIGLYCERIDES, HDL)2022-12-16 21:23:18 Test Item Value Reference Range Interpretation Comments CHOL (test code = 7408685922) 119 mg/dL 120-200 L HDL (test code = 0893681204) 28 mg/dL >=40 L HDLC RATIO (test code = 3297065249) 4.3 <=5.0 TRIG (test code = 9331386441) 118 mg/dL 30-170 LDL CHOL (test code = 19839-5) 67 mg/dL <=160 VLDL (test code = 2800300241) 24 mg/dL 5-60 Lab Interpretation (test code = Abnormal 33947-3) [facility]. METABOLIC PANEL ([id number])2022-12-16 21:22:58 Test Item Value Reference Range Interpretation Comments NA (test code = 140 mmol/L 135-145 0186070621) K (test code = 5.2 mmol/L 3.5-5.0 H 9389454528) CL (test code = 103 mmol/L 98-108 4511059301) CO2 TOTAL (test code = 27 mmol/L 23-31 7838306833) AGAP (test code = 10 2-16 8173919444) BUN (test code = 51 mg/dL 7-23 H 5245970112) GLUCOSE (test code = 145 mg/dL 70-110 H 8086533225) CREATININE (test code = 2.84 mg/dL 0.60-1.25 H 9938098241) TOTAL BILI (test code = 0.1 mg/dL 0.1-1.5 9493686111) CALCIUM (test code = 8.7 mg/dL 8.6-10.6 9258883610) T PROTEIN (test code = 7.0 g/dL 6.3-8.2 3241495681) ALBUMIN (test code = 3.7 g/dL 3.5-5.0 2230819869) ALK PHOS (test code = 71 U/L 34-122 5381700905) ALTv (test code = 19 U/L 5-50 1742-6) AST(SGOT) (test code = 18 U/L 13-40 3884953129) eGFR (test code = 23.3 mL/min/1.73m2 8740031641) MOE (test code = MOE) Association of [...] tests). Lab Interpretation Abnormal (test code = 00274-5) [facility]. METABOLIC PANEL (64484)2022-12-16 21:22:58 Test Item Value Reference Range Interpretation Comments NA (test code = 140 mmol/L 135-145 8472523217) K (test code = 5.2 mmol/L 3.5-5.0 H 9754390031) CL (test code = 103 mmol/L 98-108 7676350216) CO2 TOTAL (test code = 27 mmol/L 23-31 0009237118) AGAP (test code = 10 2-16 2565857822) BUN (test code = 51 mg/dL 7-23 H 0653071150) GLUCOSE (test code = 145 mg/dL 70-110 H 9505867576) CREATININE (test code = 2.84 mg/dL 0.60-1.25 H 5153817443) TOTAL BILI (test code = 0.1 mg/dL 0.1-1.9 9319170367) CALCIUM (test code = 8.7 mg/dL 8.6-10.6 7908283030) T PROTEIN (test code = 7.0 g/dL 6.3-8.2 9575739967) ALBUMIN (test code = 3.7 g/dL 3.5-5.0 8123820249) ALK PHOS (test code = 71 U/L 34-122 2199188740) ALTv (test code = 19 U/L 5-50 2-6) AST(SGOT) (test code = 18 U/L 13-40 5216986685) eGFR (test code = 23.3 mL/min/1.73m2 2653726759) MOE (test code = MOE) Association of [...] tests). Lab Interpretation Abnormal (test code = 49320-6) [facility]A1C[facility]2022-12-16 20:33:38 Test Item Value Reference Range Interpretation Comments HGB A1C (test code = 7.3 % 4.0-5.7 H 4548-4) MOE (test code = MOE) Reference RangesNormal: <5.7%Prediabetes: 5.7 - 6.4%Diabetes: > 6.5% Lab Interpretation (test Abnormal code = 62335-2) [facility]A1C[facility]2022-12-16 20:33:38 Test Item Value Reference Range Interpretation Comments HGB A1C (test code = 7.3 % 4.0-5.7 H 4548-4) MOE (test code = MOE) Reference RangesNormal: <5.7%Prediabetes: 5.7 - 6.4%Diabetes: > 6.5% Lab Interpretation (test Abnormal code = 53974-1) [facility] METABOLIC PANEL (NA, K, CL, CO2, GLUCOSE, BUN, CREATININE, CA)2022-09-13 03:38:19 Test Item Value Reference Range Interpretation Comments NA (test code = 137 mmol/L 135-145 5131195898) K (test code = 5.9 mmol/L 3.5-5.0 H 5666205236) CL (test code = 103 mmol/L 98-108 8772046006) CO2 TOTAL (test code = 25 mmol/L 23-31 1548699920) AGAP (test code = 9 2-16 6647238302) BUN (test code = 23 mg/dL 7-23 0314906019) GLUCOSE (test code = 235 mg/dL 70-110 H 6858190633) CREATININE (test code = 1.14 mg/dL 0.60-1.25 7739681038) CALCIUM (test code = 8.8 mg/dL 8.6-10.6 0891035266) eGFR (test code = 66.7 mL/min/1.73m2 3684277767) MOE (test code = MOE) Association of [...] tests). Lab Interpretation Abnormal (test code = 36746-4) [facility] [place] GL[place]2022-08-14 07:30:03 Test Item Value Reference Range Interpretation Comments POCT GLU (test code = 4890519943) 175 mg/dL 70-110 H Lab Interpretation (test code = Abnormal 42405-7) [facility] (NA, K, CL, CO2, GLUCOSE, BUN, CREATININE, CA)2022-08-14 06:49:10 Test Item Value Reference Range Interpretation Comments NA (test code = 137 mmol/L 135-145 7950976248) K (test code = 4.8 mmol/L 3.5-5.0 7241092348) CL (test code = 106 mmol/L 98-108 8894481636) CO2 TOTAL (test code = 25 mmol/L 23-31 7773451483) AGAP (test code = 6 2-16 9953794460) BUN (test code = 35 mg/dL 7-23 H 6703819412) GLUCOSE (test code = 187 mg/dL 70-110 H 0403385145) CREATININE (test code = 1.19 mg/dL 0.60-1.25 2446430140) CALCIUM (test code = 8.5 mg/dL 8.6-10.6 L 6730415669) eGFR (test code = 63.5 mL/min/1.73m2 9828494300) MOE (test code = MOE) Association of [...] tests). Lab Interpretation Abnormal (test code = 53219-0) [facility] WITH [id number] 06:35:09 Test Item Value Reference Range Interpretation Comments WBC (test code = 6.59 See_Comment [Automated 9934-2) message] The sy stem which generated this result transmitted reference range : 4.20 - 10.70 10*3/?L. The reference range was not used to interpret this result as normal/abnormal . RBC (test code = 3.10 See_Comment L [Automated 521-8) message] The sy stem which generated this [...] (test code = 58.6 fL 38.5-51.6 H 48041-0) RDW-CV (test code = 17.5 % 12.1-15.4 H 788-0) PLT (test code = 328 See_Comment [Automated 777-3) message] The sy stem which generated this result transmitted reference range : 150 - 328 10*3/ ?L. The reference r maggi was not used to interpret this result as normal/abnormal . MPV (test code = 10.1 fL 9.8-13.0 19773-7) NRBC/100 WBC (test 0.0 See_Comment [Automat ed code = 0415387071) message] The system which generated this result transmitted reference range : 0.0 - 10.0 /100 WBCs. The refer ence range was not u sed to interpret th is result as normal/abnormal . NRBC x10^3 (test code See_Comment [Auto mated = 2346643078) message] The s ystem which generated this result transmitted reference range : 10*3/?L. The reference range was not used to interpret this result as normal/abnormal . GRAN MAT (NEUT) % 63.9 % (test code = 770-8) IMM GRAN % (test code 0.50 % = 2727380480) LYMPH % (test code = 24.9 % 736-9) MONO % (test code = 7.4 % 5905-5) EOS % (test code = 2.4 % 713-8) BASO % (test code = 0.9 % 706-2) GRAN MAT x10^3(ANC) 4.21 10*3/uL 1.99-6.95 (test code = 8721392451) IMM GRAN x10^3 (test 0.03 10*3/uL 0.00-0.06 code = 2339288224) LYMPH x10^3 (test code 1.64 10*3/uL 1.09-3.23 = 731-0) MONO x10^3 (test code 0.49 10*3/uL 0.36-1.02 = 742-7) EOS x10^3 (test code = 0.16 10*3/uL 0.06-0.53 711-2) BASO x10^3 (test code 0.06 10*3/uL 0.01-0.09 = 704-7) Lab Interpretation Abnormal (test code = 36799-6) [address]2023-04-20 20:13:46 Test Item Value Reference Range [...] lengthened-Electronica lly Signed By Jaspreet Cannon MD ([id number]) on 08/08/2022 3:13:[address]2023-04-20 20:13:46 Test Item Value Reference Range [...] lengthened-Electronica lly Signed By Jaspreet Cannon MD ([id number]) on 08/08/2022 3:13:43 PM [place] [address] speo4620-34-98 20:13:46 Test Item Value Reference Range Interpretation [...] Cannon MD ([id number]) on 08/08/2022 3:13:[address]2023-04-20 20:13:46 Test Item Value Reference Range [...] Cannon MD ([id number]) on 08/08/2022 3:13:[address]2023-04-20 20:13:46 Test Item Value Reference Range [...] Cannon MD ([id number]) on 08/08/2022 3:13:[address]2023-04-20 20:13:46 Test Item Value Reference Range [...] Cannon MD ([id number]) on 08/08/2022 3:13:[address]2023-04-20 20:13:46 Test Item Value Reference Range [...] Cannon MD ([id number]) on 08/08/2022 3:13:[address]2023-04-20 20:13:46 Test Item Value Reference Range [...] Cannon MD ([id number]) on 08/08/2022 3:13:[address]2023-04-20 20:13:46 Test Item Value Reference Range [...] Cannon MD ([id number]) on 08/08/2022 3:13:[address]2023-04-20 20:13:46 Test Item Value Reference Range [...] Cannon MD ([id number]) on 08/08/2022 3:13:[address]2023-04-20 20:13:46 Test Item Value Reference Range [...] Cannon MD ([id number]) on 08/08/2022 3:13:43 PM [facility]2023-04-20 05:30:00 Test Item Value Reference Range Interpretation Comments AFB culture No growth Specimen isolate (test after 6 weeks InformationSp ecimen code = 543-9) of Source: Tissue Specimen incubation. Site: Leg: Left Lower Extremity - Cul ture [facility]2023-04-20 05:30:00 Test Item Value Reference Range Interpretation Comments AFB culture No growth Specimen isolate (test after 6 weeks InformationSp ecimen code = 543-9) of Source: Tissue Specimen incubation. Site: Leg: Left Lower Extremity - Cul [facility]ure [facility] fptdebi9401[facility]91-41 05:30:00 Test Item Value Reference Range Interpretation Comments AFB culture No growth Specimen isolate (test after 6 weeks InformationSp ecimen code = 543-9) of Source: Tissue Specimen incubation. Site: Leg: Left Lower Extremity - [facility] uwnluxe9425-70-29 05:30:00 Test Item Value Reference Range Interpretation Comments AFB culture No growth Specimen isolate (test after 6 weeks InformationSp ecimen code = 543-9) of Source: Tissue Specimen incubation. Site: Leg: Left Lower Extremity - [facility] sgedime0456-70-14 05:30:00 Test Item Value Reference Range Interpretation Comments AFB culture No growth Specimen isolate (test after 6 weeks InformationSp ecimen code = 543-9) of Source: Tissue Specimen incubation. Site: Leg: Left Lower Extremity - [facility] innyziv2423-39-54 05:30:00 Test Item Value Reference Range Interpretation Comments AFB culture No growth Specimen isolate (test after 6 weeks InformationSp ecimen code = 543-9) of Source: Tissue Specimen incubation. Site: Leg: Left Lower Extremity - [facility] mymzcyt8318-83-42 05:30:00 Test Item Value Reference Range Interpretation Comments AFB culture No growth Specimen isolate (test after 6 weeks InformationSp ecimen code = 543-9) of Source: Tissue Specimen incubation. Site: Leg: Left Lower Extremity - [facility] mnihkzp9860-02-30 05:30:00 Test Item Value Reference Range Interpretation Comments AFB culture No growth Specimen isolate (test after 6 weeks InformationSp ecimen code = 543-9) of Source: Tissue Specimen incubation. Site: Leg: Left Lower Extremity - [facility] [id number] 05:30:00 Test Item Value Reference Range Interpretation Comments AFB culture No growth Specimen isolate (test after 6 weeks InformationSp ecimen code = 543-9) of Source: Tissue Specimen incubation. Site: Leg: Left Lower Extremity - [facility] [id number] 05:30:00 Test Item Value Reference Range Interpretation Comments AFB culture No growth Specimen isolate (test after 6 weeks InformationSp ecimen code = 543-9) of Source: Tissue Specimen incubation. Site: Leg: Left Lower Extremity - [facility] uzyozlx5683-43-29 05:30:00 Test Item Value Reference Range Interpretation Comments AFB culture No growth Specimen isolate (test after 6 weeks InformationSp ecimen code = 543-9) of Source: Tissue Specimen incubation. Site: Leg: Left Lower Extremity - [facility]22-07-31 22:28:25 Test Item Value Reference Range Interpretation Comments POCT GLU (test code = 3897548181) 116 mg/dL 70-110 H Lab Interpretation (test code = Abnormal 86723-2) [facility] GLUCOSE (AUTOMATED)2022-07-31 17:14:36 Test Item Value Reference Range Interpretation Comments POCT GLU (test code = 9629113714) 136 mg/dL 70-110 H Lab Interpretation (test code = Abnormal 58254-7) [facility] GLUCOSE (AUTOMATED)2022-07-31 01:47:10 Test Item Value Reference Range Interpretation Comments POCT GLU (test code = 2160529648) 141 mg/dL 70-110 H Lab Interpretation (test code = Abnormal 82140-7) [facility] GLUCOSE (AUTOMATED)2022-07-30 23:18:09 Test Item Value Reference Range Interpretation Comments POCT GLU (test code = 9699688338) 140 mg/dL 70-110 H Lab Interpretation (test code = Abnormal 24799-6) [facility] GLUCOSE (AUTOMATED)2022-07-30 18:43:38 Test Item Value Reference Range Interpretation Comments POCT GLU (test code = 8107307040) 165 mg/dL 70-110 H Lab Interpretation (test code = Abnormal 47021-4) [facility] GLUCOSE (AUTOMATED)2022-07-30 14:19:36 Test Item Value Reference Range Interpretation Comments POCT GLU (test code = 9682272109) 90 mg/dL 70-110 Lab Interpretation (test code = Normal 30815-2) [facility] GLUCOSE (AUTOMATED)2022-07-30 01:37:57 Test Item Value Reference Range Interpretation Comments POCT GLU (test code = 7591247355) 100 mg/dL 70-110 Lab Interpretation (test code = Normal 02275-2) [facility] GLUCOSE (AUTOMATED)2022-07-29 22:44:33 Test Item Value Reference Range Interpretation Comments POCT GLU (test code = 4166283711) 113 mg/dL 70-110 H Lab Interpretation (test code = Abnormal 30896-5) [facility] GLUCOSE (AUTOMATED)2022-07-29 18:36:00 Test Item Value Reference Range Interpretation Comments POCT GLU (test code = 8169795732) 108 mg/dL 70-110 Lab Interpretation (test code = Normal 42405-2) [facility] GLUCOSE (AUTOMATED)2022-07-29 13:47:37 Test Item Value Reference Range Interpretation Comments POCT GLU (test code = 3598492067) 91 mg/dL 70-110 Lab Interpretation (test code = Normal 52896-5) [facility] GLUCOSE (AUTOMATED)2022-07-29 01:19:16 Test Item Value Reference Range Interpretation Comments POCT GLU (test code = 4160333648) 143 mg/dL 70-110 H Lab Interpretation (test code = Abnormal 01601-3) [facility] GLUCOSE (AUTOMATED)2022-07-28 21:10:26 Test Item Value Reference Range Interpretation Comments POCT GLU (test code = 1530833079) 148 mg/dL 70-110 H Lab Interpretation (test code = Abnormal 24030-0) [facility] GLUCOSE (AUTOMATED)2022-07-28 17:13:13 Test Item Value Reference Range Interpretation Comments POCT GLU (test code = 3478610625) 199 mg/dL 70-110 H Lab Interpretation (test code = Abnormal 84117-3) [facility] GLUCOSE (AUTOMATED)2022-07-28 12:53:47 Test Item Value Reference Range Interpretation Comments POCT GLU (test code = 9268169217) 113 mg/dL 70-110 H Lab Interpretation (test code = Abnormal 10683-7) [facility] GLUCOSE (AUTOMATED)2022-07-28 08:02:41 Test Item Value Reference Range Interpretation Comments POCT GLU (test code = 4058740230) 126 mg/dL 70-110 H Lab Interpretation (test code = Abnormal 87064-8) [facility] lihbbaq4531-10-37 05:40:00 Test Item Value Reference Range Interpretation Comments Fungus culture No growth Specimen isolate (test after 4 weeks InformationSp ecimen code = 580-1) of Source: Tissue Specimen incubation. Site: Leg: Left Lower Extremity - [facility]2023-04-06 05:40:00 Test Item Value Reference Range Interpretation Comments Fungus culture No growth Specimen isolate (test after 4 weeks InformationSp ecimen code = 580-1) of Source: Tissue Specimen incubation. Site: Leg: Left Lower Extremity - [facility]2023-04-06 05:40:00 Test Item Value Reference Range Interpretation Comments Fungus culture No growth Specimen isolate (test after 4 weeks InformationSp ecimen code = 580-1) of Source: Tissue Specimen incubation. Site: Leg: Left Lower Extremity - [facility]2023-04-06 05:40:00 Test Item Value Reference Range Interpretation Comments Fungus culture No growth Specimen isolate (test after 4 weeks InformationSp ecimen code = 580-1) of Source: Tissue Specimen incubation. Site: Leg: Left Lower Extremity - [facility]2023-04-06 05:40:00 Test Item Value Reference Range Interpretation Comments Fungus culture No growth Specimen isolate (test after 4 weeks InformationSp ecimen code = 580-1) of Source: Tissue Specimen incubation. Site: Leg: Left Lower Extremity - [facility]2023-04-06 05:40:00 Test Item Value Reference Range Interpretation Comments Fungus culture No growth Specimen isolate (test after 4 weeks InformationSp ecimen code = 580-1) of Source: Tissue Specimen incubation. Site: Leg: Left Lower Extremity - [facility]2023-04-06 05:40:00 Test Item Value Reference Range Interpretation Comments Fungus culture No growth Specimen isolate (test after 4 weeks InformationSp ecimen code = 580-1) of Source: Tissue Specimen incubation. Site: Leg: Left Lower Extremity - [place] 639853-04-06 05:40:00 Test Item Value Reference Range Interpretation Comments Fungus culture No growth Specimen isolate (test after 4 weeks InformationSp ecimen code = 580-1) of Source: Tissue Specimen incubation. Site: Leg: Left Lower Extremity - [facility] [id number] 05:40:00 Test Item Value Reference Range Interpretation Comments Fungus culture No growth Specimen isolate (test after 4 weeks InformationSp ecimen code = 580-1) of Source: Tissue Specimen incubation. Site: Leg: Left Lower Extremity - [facility] fxtcrmw7880-21-25 05:40:00 Test Item Value Reference Range Interpretation Comments Fungus culture No growth Specimen isolate (test after 4 weeks InformationSp ecimen code = 580-1) of Source: Tissue Specimen incubation. Site: Leg: Left Lower Extremity - [facility] qioorwr7075-82-31 05:40:00 Test Item Value Reference Range Interpretation Comments Fungus culture No growth Specimen isolate (test after 4 weeks InformationSp ecimen code = 580-1) of Source: Tissue Specimen incubation. Site: Leg: Left [facility]. Metabolic Panel (12739)2022-07-19 03:26:53 Test Item Value Reference Range Interpretation Comments NA (test code = 140 mmol/L 135-145 8789777478) K (test code = 5.3 mmol/L 3.5-5.0 H 7198441630) CL (test code = 101 mmol/L 98-108 3712272815) CO2 TOTAL (test code = 27 mmol/L 23-31 0121398421) AGAP (test code = 12 2-16 4898080517) BUN (test code = 30 mg/dL 7-23 H 6127954850) GLUCOSE (test code = 189 mg/dL 70-110 H 3271596573) CREATININE (test code = 1.24 mg/dL 0.60-1.25 5505053328) TOTAL BILI (test code = 0.4 mg/dL 0.1-1.0 1362312596) CALCIUM (test code = 9.3 mg/dL 8.6-10.6 6105001816) T PROTEIN (test code = 8.0 g/dL 6.3-8.2 1300142111) ALBUMIN (test code = 4.1 g/dL 3.5-5.0 2126494449) ALK PHOS (test code = 107 U/L 34-122 7952698065) ALTv (test code = 43 U/L 5-50 1742-6) AST(SGOT) (test code = 38 U/L 13-40 3787688321) eGFR (test code = 60.5 mL/min/1.73m2 1632819237) MOE (test code = MOE) Association of [...] tests). Lab Interpretation Abnormal (test code = 22871-0) [facility] with [id number] 03:23:09 Test Item Value Reference Range Interpretation Comments WBC (test code = 6.48 See_Comment [Automated 8611-2) message] The sy stem which generated this result transmitted reference range : 4.20 - 10.70 10*3/?L. The reference range was not used to interpret this result as normal/abnormal . RBC (test code = 4.08 See_Comment L [Automated 037-8) message] The sy stem which generated this [...] RDW-SD (test code = 49.0 fL 38.5-51.6 24839-0) RDW-CV (test code = 15.0 % 12.1-15.4 788-0) PLT (test code = 542 See_Comment H [Automated 777-3) message] The sy stem which generated this result transmitted reference range : 150 - 328 10*3/ ?L. The reference r maggi was not used to interpret this result as normal/abnormal . MPV (test code = 9.6 fL 9.8-13.0 L 65410-5) NRBC/100 WBC (test 0.0 See_Comment [Automat ed code = 2656332409) message] The system which generated this result transmitted reference range : 0.0 - 10.0 /100 WBCs. The refer ence range was not u sed to interpret th is result as normal/abnormal . NRBC x10^3 (test code See_Comment [Auto mated = 0989683382) message] The s ystem which generated this result transmitted reference range : 10*3/?L. The reference range was not used to interpret this result as normal/abnormal . GRAN MAT (NEUT) % 60.7 % (test code = 770-8) IMM GRAN % (test code 0.50 % = 2661140375) LYMPH % (test code = 28.2 % 736-9) MONO % (test code = 6.9 % 5905-5) EOS % (test code = 2.5 % 713-8) BASO % (test code = 1.2 % 706-2) GRAN MAT x10^3(ANC) 3.93 10*3/uL 1.99-6.95 (test code = 2881753608) IMM GRAN x10^3 (test 0.03 10*3/uL 0.00-0.06 code = 6925503580) LYMPH x10^3 (test code 1.83 10*3/uL 1.09-3.23 = 731-0) MONO x10^3 (test code 0.45 10*3/uL 0.36-1.02 = 742-7) EOS x10^3 (test code = 0.16 10*3/uL 0.06-0.53 711-2) BASO x10^3 (test code 0.08 10*3/uL 0.01-0.09 = 704-7) Lab Interpretation Abnormal (test code = 65131-1) [facility] qbomodq3827-39-38 16:22:00 Test Item Value Reference Range Interpretation Comments POC glucose (test code = 245 mg/dL 65-100 H Ope rator Name: Marilin 84857-8) GarzaDevice ID: [id number] Lab Interpretation (test Abnormal code = 56487-8) [facility]2023-03-15 16:22:00 Test Item Value Reference Range Interpretation Comments POC glucose (test code = 245 mg/dL 65-100 H Ope rator Name: Marilin 94775-6) GarzaDevice ID: [id number] Lab Interpretation (test Abnormal code = 60998-5) [facility]2023-03-15 16:22:00 Test Item Value Reference Range Interpretation Comments POC glucose (test code = 245 mg/dL 65-100 H Ope rator Name: Marilin 13210-2) GarzaDevice ID: [id number] Lab Interpretation (test Abnormal code = 03532-3) [facility]2023-03-15 16:22:00 Test Item Value Reference Range Interpretation Comments POC glucose (test code = 245 mg/dL 65-100 H Ope rator Name: Marilin 21026-2) GarzaDevice ID: [id number] Lab Interpretation (test Abnormal code = 65632-7) [facility]2023-03-15 16:22:00 Test Item Value Reference Range Interpretation Comments POC glucose (test code = 245 mg/dL 65-100 H Ope rator Name: Marilin 23555-3) GarzaDevice ID: [id number] Lab Interpretation (test Abnormal code = 69290-8) [facility] mmxewna3953-20-49 16:22:00 Test Item Value Reference Range Interpretation Comments POC glucose (test code = 245 mg/dL 65-100 H Ope rator Name: Marilin 72031-4) GarzaDevice ID: [id number] Lab Interpretation (test Abnormal code = 98250-1) [facility]2023-03-15 16:22:00 Test Item Value Reference Range Interpretation Comments POC glucose (test code = 245 mg/dL 65-100 H Ope rator Name: Marilin 34910-8) GarzaDevice ID: [id number] Lab Interpretation (test Abnormal code = 04514-9) [facility]2023-03-15 16:22:00 Test Item Value Reference Range Interpretation Comments POC glucose (test code = 245 mg/dL 65-100 H Ope rator Name: Marilin 84690-7) GarzaDevice ID: [id number] Lab Interpretation (test Abnormal code = 33113-9) [facility]2023-03-15 16:22:00 Test Item Value Reference Range Interpretation Comments POC glucose (test code = 245 mg/dL 65-100 H Ope rator Name: Marilin 37685-9) GarzaDevice ID: [id number] Lab Interpretation (test Abnormal code = 00992-6) [facility]2023-03-15 16:22:00 Test Item Value Reference Range Interpretation Comments POC glucose (test code = 245 mg/dL 65-100 H Ope rator Name: Marilin 54543-9) GarzaDevice ID: [id number] Lab Interpretation (test Abnormal code = 18637-5) [facility]2023-03-15 16:22:00 Test Item Value Reference Range Interpretation Comments POC glucose (test code = 245 mg/dL 65-100 H Ope rator Name: Marilin 85661-0) GarzaDevice ID: [id number] Lab Interpretation (test Abnormal code = 22544-0) [facility] mkojs7476-22-52 19:17:00 Test Item Value Reference Range Interpretation Comments IMP PCR (test NOT DETECTED Specimen Infor mationSpecimen code = Source: [facility] Site: 42588-2) Tissue [id number] OXA-48 PCR NOT DETECTED (test code = 8006) [facility] uceis4400-53-67 19:17:00 Test Item Value Reference Range Interpretation Comments IMP PCR (test NOT DETECTED Specimen Infor mationSpecimen code = Source: [facility] Site: [address] [place] [address]) Tissue [id number] OXA-48 PCR NOT DETECTED (test code = 8006) [facility] srufl3923-73-77 19:17:00 Test Item Value Reference Range Interpretation Comments IMP PCR (test NOT DETECTED Specimen Infor mationSpecimen code = Source: [facility] Site: [address] [place] [address]) Tissue [id number] OXA-48 PCR NOT DETECTED (test code = 8006) [facility] aostm0153-28-02 19:17:00 Test Item Value Reference Range Interpretation Comments IMP PCR (test NOT DETECTED Specimen Infor mationSpecimen code = Source: [facility] Site: [address] [place] [address]) Tissue [id number] 07 OXA-48 PCR NOT DETECTED (test code = 8006) [facility] tfnse2857-02-54 19:17:00 Test Item Value Reference Range Interpretation Comments IMP PCR (test NOT DETECTED Specimen Infor mationSpecimen code = Source: [facility] Site: [address] [place] [address]) Tissue [id number] 07 OXA-48 PCR NOT DETECTED (test code = 8006) [facility] fynzn4789-53-89 19:17:00 Test Item Value Reference Range Interpretation Comments IMP PCR (test NOT DETECTED Specimen Infor mationSpecimen code = Source: [facility] Site: 06136-4) Tissue [id number] 07 OXA-48 PCR NOT DETECTED (test code = 8006) [facility] jbkoi5936-60-12 19:17:00 Test Item Value Reference Range Interpretation Comments IMP PCR (test NOT DETECTED Specimen Infor mationSpecimen code = Source: [facility] Site: 18488-1) Tissue [id number] 07 OXA-48 PCR NOT DETECTED (test code = 8006) [facility] uavwq3951-97-36 19:17:00 Test Item Value Reference Range Interpretation Comments IMP PCR (test NOT DETECTED Specimen Infor mationSpecimen code = Source: [facility] Site: 23956-6) Tissue [id number] 07 OXA-48 PCR NOT DETECTED (test code = 8006) [facility] eopdh0831-13-40 19:17:00 Test Item Value Reference Range Interpretation Comments IMP PCR (test NOT DETECTED Specimen Infor mationSpecimen code = Source: [facility] Site: 71106-0) Tissue [id number] 07 OXA-48 PCR NOT DETECTED (test code = 8006) [facility] ukeax2568-19-88 19:17:00 Test Item Value Reference Range Interpretation Comments IMP PCR (test NOT DETECTED Specimen Infor mationSpecimen code = Source: [facility] Site: 68649-6) Tissue [id number] 07 OXA-48 PCR NOT DETECTED (test code = 8006) [facility] sswgq6782-33-41 19:17:00 Test Item Value Reference Range Interpretation Comments IMP PCR (test NOT DETECTED Specimen Infor mationSpecimen code = Source: [facility] Site: 91621-9) Tissue [id number] 07 OXA-48 PCR NOT DETECTED (test code = 8006) [facility] hlucldu6085-80-24 13:15:00 Test Item Value Reference Range Interpretation Comments Anaerobic No anaerobic Specimen culture isolate organisms InformationS pecimen (test code = isolated. Source: TissueS pecimen 13840-2) Site: Leg: Left Lower Extremity - Cul [facility]ure [facility] loamzsy2852-92-53 13:15:00 Test Item Value Reference Range Interpretation Comments Anaerobic No anaerobic Specimen culture isolate organisms InformationS pecimen (test code = isolated. Source: TissueS pecimen 10005-3) Site: Leg: Left Lower Extremity - Cul [facility]ure [facility] searrkw3966-50-18 13:15:00 Test Item Value Reference Range Interpretation Comments Anaerobic No anaerobic Specimen culture isolate organisms InformationS pecimen (test code = isolated. Source: TissueS pecimen 51237-4) Site: Leg: Left Lower Extremity - [place] 581473-03-13 13:15:00 Test Item Value Reference Range Interpretation Comments Anaerobic No anaerobic Specimen culture isolate organisms InformationS pecimen (test code = isolated. Source: TissueS pecimen 09375-4) Site: Leg: Left Lower Extremity - [place] 581473-03-13 13:15:00 Test Item Value Reference Range Interpretation Comments Anaerobic No anaerobic Specimen culture isolate organisms InformationS pecimen (test code = isolated. Source: TissueS pecimen 33093-0) Site: Leg: Left Lower Extremity - [place] 581473-03-13 13:15:00 Test Item Value Reference Range Interpretation Comments Anaerobic No anaerobic Specimen culture isolate organisms InformationS pecimen (test code = isolated. Source: TissueS pecimen 36927-4) Site: Leg: Left Lower Extremity [place] 570463-03-13 13:15:00 Test Item Value Reference Range Interpretation Comments Anaerobic No anaerobic Specimen culture isolate organisms InformationS pecimen (test code = isolated. Source: TissueS pecimen 91339-8) Site: Leg: Left Lower Extremity [place] 570463-03-13 13:15:00 Test Item Value Reference Range Interpretation Comments Anaerobic No anaerobic Specimen culture isolate organisms InformationS pecimen (test code = isolated. Source: TissueS pecimen 45551-4) Site: Leg: Left Lower Extremity - [place] 581473-03-13 13:15:00 Test Item Value Reference Range Interpretation Comments Anaerobic No anaerobic Specimen culture isolate organisms InformationS pecimen (test code = isolated. Source: TissueS pecimen 10123-3) Site: Leg: Left Lower Extremity [place] 570463-03-13 13:15:00 Test Item Value Reference Range Interpretation Comments Anaerobic No anaerobic Specimen culture isolate organisms InformationS pecimen (test code = isolated. Source: TissueS pecimen 10850-4) Site: Leg: Left Lower Extremity - [place] 581473-03-13 13:15:00 Test Item Value Reference Range Interpretation Comments Anaerobic No anaerobic Specimen culture isolate [facility] (test code = isolated. Source: [facility] 16845-5) Site: [facility] [id number] 14:49:00 Test Item Value Reference Range Interpretation Comments AFB stain No acid fast Specimen (test code = bacilli (AFB) InformationSpe cimen 676-7) seen. Source: [facility] Site: [facility] [id number] 14:49:00 Test Item Value Reference Range Interpretation Comments AFB stain No acid fast Specimen (test code = bacilli (AFB) InformationSpe cimen 676-7) seen. Source: [facility] Site: Leg[facility] [id number] 14:49:00 Test Item Value Reference Range Interpretation Comments AFB stain No acid fast Specimen (test code = bacilli (AFB) InformationSpe cimen 676-7) seen. Source: [facility] Site: Leg: [facility] [id number] 14:49:00 Test Item Value Reference Range Interpretation Comments AFB stain No acid fast Specimen (test code = bacilli (AFB) InformationSpe cimen 676-7) seen. Source: [facility] Site: Leg: [facility] [id number] 14:49:00 Test Item Value Reference Range Interpretation Comments AFB stain No acid fast Specimen (test code = bacilli (AFB) InformationSpe cimen 676-7) seen. Source: [facility] Site: Leg: [facility] [id number] 14:49:00 Test Item Value Reference Range Interpretation Comments AFB stain No acid fast Specimen (test code = bacilli (AFB) InformationSpe cimen 676-7) seen. Source: [facility] Site: Leg: [facility] [id number] 14:49:00 Test Item Value Reference Range Interpretation Comments AFB stain No acid fast Specimen (test code = bacilli (AFB) InformationSpe cimen 676-7) seen. Source: [facility] Site: Leg: Left Lower Extremity - [facility] [id number] 14:49:00 Test Item Value Reference Range Interpretation Comments AFB stain No acid fast Specimen (test code = bacilli (AFB) InformationSpe cimen 676-7) seen. Source: [facility] Site: Leg: Left Lower Extremity - [facility] [id number] 14:49:00 Test Item Value Reference Range Interpretation Comments AFB stain No acid fast Specimen (test code = bacilli (AFB) InformationSpe cimen 676-7) seen. Source: [facility] Site: Leg: Left Lower Extremity - [facility] [id number] 14:49:00 Test Item Value Reference Range Interpretation Comments AFB stain No acid fast Specimen (test code = bacilli (AFB) InformationSpe cimen 676-7) seen. Source: [facility] Site: Leg: Left Lower Extremity - [facility] [id number] 14:49:00 Test Item Value Reference Range Interpretation Comments AFB stain No acid fast Specimen (test code = bacilli (AFB) InformationSpe cimen 676-7) seen. Source: [facility] Site: Leg: Left Lower Extremity [facility] [id number] 18:08:00 Test Item Value Reference Range Interpretation Comments Fungus smear No fungi Specimen (test code = observed. [facility] Source: 1447) [facility] Site: Leg: Left Lower Extr emity - [facility] [id number] 18:08:00 Test Item Value Reference Range Interpretation Comments Fungus smear No fungi Specimen (test code = observed. [facility] Source: 1441) [facility] Site: Leg: Left Lower Extr emity - [facility] [id number] 18:08:00 Test Item Value Reference Range Interpretation Comments Fungus smear No fungi Specimen (test code = observed. [facility] Source: 1449) [facility] Site: Leg: Left Lower Extr emity - [facility] [id number] 18:08:00 Test Item Value Reference Range Interpretation Comments Fungus smear No fungi Specimen (test code = observed. InformationSpec imen Source: 1443) TissueSpecimen Site: Leg: Left Lower Extr emity - [facility] [id number] 18:08:00 Test Item Value Reference Range Interpretation Comments Fungus smear No fungi Specimen (test code = observed. InformationSpec imen Source: 1443) TissueSpecimen Site: Leg: Left Lower Extr emity - [facility] [id number] 18:08:00 Test Item Value Reference Range Interpretation Comments Fungus smear No fungi Specimen (test code = observed. InformationSpec imen Source: 1443) TissueSpecimen Site: Leg: Left Lower Extr emity - [facility] [id number] 18:08:00 Test Item Value Reference Range Interpretation Comments Fungus smear No fungi Specimen (test code = observed. InformationSpec imen Source: 1443) TissueSpecimen Site: Leg: Left Lower Extr emity - [facility] [id number] 18:08:00 Test Item Value Reference Range Interpretation Comments Fungus smear No fungi Specimen (test code = observed. InformationSpec imen Source: 1443) TissueSpecimen Site: Leg: Left Lower Extr emity - [facility] [id number] 18:08:00 Test Item Value Reference Range Interpretation Comments Fungus smear No fungi Specimen (test code = observed. InformationTuebora imen Source: 1443) TissueSpecimen Site: Leg: Left Lower Extr emity - [facility] [id number] 18:08:00 Test Item Value Reference Range Interpretation Comments Fungus smear No fungi Specimen (test code = observed. InformationSpec imen Source: 1443) TissueSpecimen Site: Leg: Left Lower Extr emity - [facility] [id number] 18:08:00 Test Item Value Reference Range Interpretation Comments Fungus smear No fungi Specimen (test code = observed. InformationSpec imen Source: 1443) TissueSpecimen Site: Leg: Left Lower Extr emity - Culture [facility] [id number] 17:14:00 Test Item Value Reference Range Interpretation Comments Gram stain Few Gram Specimen isolate (test negative rods InformationSp ecimen code = 1469) Source: [facility] Site: Leg: Left Lower Extremity - [facility] [id number] 17:14:00 Test Item Value Reference Range Interpretation Comments Gram stain Few Gram Specimen isolate (test negative rods InformationSp ecimen code = 1469) Source: [facility] Site: Leg: Left Lower Extremity - [facility] [id number] 17:14:00 Test Item Value Reference Range Interpretation Comments Gram stain Few Gram Specimen isolate (test negative rods InformationSp ecimen code = 1469) Source: [facility] Site: Leg: Left Lower Extremity [facility] [id number] 17:14:00 Test Item Value Reference Range Interpretation Comments Gram stain Few Gram Specimen isolate (test negative rods InformationSp ecimen code = 1469) Source: [facility] Site: Leg: Left Lower Extremity [facility]2023-03-09 17:14:00 Test Item Value Reference Range Interpretation Comments Gram stain Few Gram Specimen isolate (test negative rods InformationSp ecimen code = 1469) Source: [facility] Site: Leg: Left Lower Extremity [facility] [id number] 17:14:00 Test Item Value Reference Range Interpretation Comments Gram stain Few Gram Specimen isolate (test negative rods InformationSp ecimen code = 1469) Source: [facility] Site: Leg: Left Lower Extremity [facility]2023-03-09 17:14:00 Test Item Value Reference Range Interpretation Comments Gram stain Few Gram Specimen isolate (test negative rods InformationSp ecimen code = 1469) Source: [facility] Site: Leg: Left Lower Extremity [facility] [id number] 17:14:00 Test Item Value Reference Range Interpretation Comments Gram stain Few Gram Specimen isolate (test negative rods InformationSp ecimen code = 1469) Source: [facility] Site: Leg: Left Lower Extremity [facility] [id number] 17:14:00 Test Item Value Reference Range Interpretation Comments Gram stain Few Gram Specimen isolate (test negative rods InformationSp ecimen code = 1469) Source: [facility] Site: Leg: Left Lower Extremity - [facility] [id number] 17:14:00 Test Item Value Reference Range Interpretation Comments Gram stain Few Gram Specimen isolate (test negative rods InformationSp ecimen code = 1469) Source: TissueS pecimen Site: Leg: Left Lower Extremity - [facility] [id number] 17:14:00 Test Item Value Reference Range Interpretation Comments Gram stain Few Gram Specimen isolate (test negative rods InformationSp ecimen code = 1469) Source: TissueS pecimen Site: Leg: Left Lower Extremity - Cul [facility] pathology [id number] 22:46:05 Test Item Value Reference Range Interpretation Comments Case number (test code = [id number]) Surgical pathology See link below for report (test code = PDF Lab Report 2255) Result status (test code This is Final Report = [id number]) for [address] pathology [id number] 22:46:05 Test Item Value Reference Range Interpretation Comments Case number (test code = [id number]) Surgical pathology See link below for report (test code = PDF Lab Report 2255) Result status (test code This is Final Report = [id number]) for [address] pathology [id number] 22:46:05 Test Item Value Reference Range Interpretation Comments Case number (test code = [id number]) Surgical pathology See link below for report (test code = PDF Lab Report 2255) Result status (test code This is Final Report = [id number]) for [address] pathology [id number] 22:46:05 Test Item Value Reference Range Interpretation Comments Case number (test code = [id number]) Surgical pathology See link below for report (test code = PDF Lab Report 2255) Result status (test code This is Final Report = [id number]) for [address] pathology [id number] 22:46:05 Test Item Value Reference Range Interpretation Comments Case number (test code = [id number]) Surgical pathology See link below for report (test code = PDF Lab Report 2255) Result status (test code This is Final Report = [id number]) for [address] pathology [id number] 22:46:05 Test Item Value Reference Range Interpretation Comments Case number (test code = [id number]) Surgical pathology See link below for report (test code = PDF Lab Report 2255) Result status (test code This is Final Report = [id number]) for [address] pathology [id number] 22:46:05 Test Item Value Reference Range Interpretation Comments Case number (test code = [id number]) Surgical pathology See link below for report (test code = PDF Lab Report 2255) Result status (test code This is Final Report = [id number]) for [address] pathology [id number] 22:46:05 Test Item Value Reference Range Interpretation Comments Case number (test code = [id number]) Surgical pathology See link below for report (test code = PDF Lab Report 2255) Result status (test code This is Final Report = 3675439) for [address] pathology [id number] 22:46:05 Test Item Value Reference Range Interpretation Comments Case number (test code = [id number]) Surgical pathology See link below for report (test code = PDF Lab Report 2255) Result status (test code This is Final Report = [id number]) for [address] pathology [id number] 22:46:05 Test Item Value Reference Range Interpretation Comments Case number (test code = [id number]) Surgical pathology See link below for report (test code = PDF Lab Report 2255) Result status (test code This is Final Report = [id number]) for [address] pathology [id number] 22:46:05 Test Item Value Reference Range Interpretation Comments Case number (test code = [id number]) Surgical pathology See link below for report (test code = PDF Lab Report 2255) Result status (test code This is Final Report = [id number]) [address] Complete, (w Contrast, Strain and 3D if needed)2022-05-10 21:23:23 Test Item Value Reference Interpretation Comments Range Ao Root Diameter 3.34 cm (test code = 5722818977) AoV Area, Vmax (test 3.02 cm2 See_Comment [Autom ated code = 1045858545) message] The system which generated this result transmitted reference range : >=1.5. The reference range was not used to interpret this result as normal/abnormal . AoV Area, VTI (test 3.07 cm2 code = 4454089090) AoV Mean PG (test 4.26 mmHg code = 9282892075) AoV Peak PG (test 6.38 mmHg code = 4201606529) AoV Vmax (test code 1.42 m/s = 6630712591) AoV VTI (test code = 0.26 m 8879309111) BSA Rashid (test code 2.11 m2 = 9197518783) BSA (test code = 2.02 m2 9329269174) IVS,d (test code = 0.84 cm 0.6-3 7209358397) IVS/LVPW,2D (test 0.98 code = 9971745376) Left Atrium 3.49 cm Dimension Anterior (test code = 9758853758) LV,d (test code = 4.74 cm 2403792696) LV EF,2D (test code 64.34 % = 1928696472) LV,s (test code = 3.36 cm 0377966773) LVOT area (test code 3.53 cm2 = 0535119762) LVOT Diam,S (test 2.12 cm code = 0031931463) LVOT Vmax (test code 1.13 m/s = 5532876352) LVOT VTI (test code 0.21 m = 0093499605) LVPWD,d (test code = 0.85 cm 0.60-1.19 4666992505) MV E A ratio (test 0.86 code = 2245317241) AoV area i VTI BSA 1.52 cm2/m2 See_Comment [Automat ed [place] (test code = message] The 6691674397) system which generated this result transmitted reference range : >=0.85. The reference range was not used to interpret this result as normal/abnormal . BMI (test code = 31.32 kg/m2 7712073473) E wave decelartion 89.56 See_Comment A [Automat ed time (test code = message] T he 3591165603) system which generated this result transmitted reference range : 200 msec. The reference range was not used to interpret this result as normal/abnormal . MV Peak A Sander (test 0.88 m/s code = 1530460169) MV valve area p 1/2 8.47 cm2 method (test code = 0817358249) MV Peak E Sander (test 0.75 m/s code = 7169570414) MV stenosis pressure 25.97 ms 1/2 time (test code = 4355989461) LVOT stroke volume 0.74 ml (test code = 2865951233) AV LVOT peak 4.69 mmHg gradient (test code = 9461848283) Ao Root Diameter 3.34 cm (test code = 7653201558) MV mean gradient 1.92 mmHg (test code = 3115525519) LV SYS VOL (test 46.16 ml 21-61 code = 4588957743) LV ANDERSON VOL (test 104.46 ml 62-150 code = 6994587895) LA area s A4C (test 17.60 cm2 code = 1358330701) LV SI Teich 2D (test 28.83 ml/m2 code = 3998091786) LV SV Teich 2D (test 58.30 ml code = 7853169121) LV Vol s Teich PSAX 46.16 ml (test code = 8887711168) LVOT CI (test code = 3.53 l/min/m2 5883149852) LVOT CO (test code = 7.14 l/min 9260014926) LVOT HR for LVOT CO 98.89 bpm (test code = 5157879721) LVOT SI (test code = 35.72 ml/m2 3757907294) MR peak grad (test 3.00 mmHg code = 6133761367) MV Vmax (test code = 0.87 m 2259855568) MV VTI Tips (test 0.14 m code = 5987213456) BSA Haycock (test 2.10 m2 code = 6759308839) AoV Vmn (test code = 0.97 m/s 0105280600) IVS s 2D (test code 1.17 cm = 8345048086) LV FS Teich 2D (test 29.09 code = 0713308120) MV AE ratio (test 1.17 code = 5614909235) LV FS Cube 2D (test 29.09 code = 3634197548) LVOT Vmn (test code 0.75 = 2996941453) Pt Size (test code = 170.18 0991138985) Pt Wt (test code = 90.72 8089078442) Aov area Vmn (test 3.05 cm2 code = 0910876333) LVOT mean grad (test 2.57 mmHg code = 8530073892) 85 of MPHR (test 140.25 code = 1150104704) AoV area I VMN bsa 1.51 cm2/m2 (test code = 6589049363) Calc MPHR (test code 165.01 bpm = 4308023580) IVS pct thck PLAX 39.76 % (test code = 1516937493) LV SI Cube 2D (test 33.91 ml/m2 code = 0141351727) LV SV Cube 2D (test 68.57 ml code = 5904888843) LV vol d cube 2D 106.56 ml (test code = 4205133272) LV vol s cube 2D 38.00 ml (test code = 5684512983) LVPW pct thck PLAX 35.24 % (test code = 9435433668) LVPW s PLAX (test 1.16 cm code = 5022845042) MV Decel slope (test 8.38 m/s2 code = 3934802609) Pred Exer Dur R1 9.48 (test code = 3763515092) Pred METS R1 (test 9.75 code = 9085892823) LA Vol MOD A4C (test 46.56 ml code = 1830919961) Velocity Ratio 0.80 m/s (V1/V2) (test code = 4689) EF (test code = 56 % 9113115864) E/A ratio (test code 0.85 = 6367911990) LVOT VTI (CM) (test 21.00 cm code = 9172199044) MOE (test code = MOE) Left Ventricle: [...] normal. Lab Interpretation Abnormal (test code = 46602-7) [facility], (w Contrast, Strain and 3D if needed)2022-05-10 21:23:23 Test Item Value Reference Interpretation Comments Range Ao Root Diameter 3.34 cm (test code = 7355945070) AoV Area, Vmax (test 3.02 cm2 >=1.5 code = 2954330667) AoV Area, VTI (test 3.07 cm2 code = 5147699630) AoV Mean PG (test 4.26 mmHg code = 8054170644) AoV Peak PG (test 6.38 mmHg code = 9268956371) AoV Vmax (test code 1.42 m/s = 2338755496) AoV VTI (test code = 0.26 m 1868633446) BSA Rashid (test code 2.11 m2 = 9559817831) BSA (test code = 2.02 m2 5654660928) IVS,d (test code = 0.84 cm 0.6-6 5044133521) IVS/LVPW,2D (test 0.98 code = 8740777356) Left Atrium 3.49 cm Dimension Anterior (test code = 5806344679) LV,d (test code = 4.74 cm 8250413682) LV EF,2D (test code 64.34 % = 7801490012) LV,s (test code = 3.36 cm 8818309682) LVOT area (test code 3.53 cm2 = 1006249050) LVOT Diam,S (test 2.12 cm code = 8085348513) LVOT Vmax (test code 1.13 m/s = 7223611335) LVOT VTI (test code 0.21 m = 7893292623) LVPWD,d (test code = 0.85 cm 0.60-1.19 0143657454) MV E A ratio (test 0.86 code = 5037639745) AoV area i VTI BSA 1.52 cm2/m2 >=0.85 [place] (test code = 8272396243) BMI (test code = 31.32 kg/m2 6423109237) E wave decelartion 89.56 See_Comment A [Automat ed time (test code = message] T he 4918441602) system which generated this result transmitted reference range : 200 msec. The reference range was not used to interpret this result as normal/abnormal . MV Peak A Sander (test 0.88 m/s code = 9065699171) MV valve area p 1/2 8.47 cm2 method (test code = 4518442522) MV Peak E Sander (test 0.75 m/s code = 1665786093) MV stenosis pressure 25.97 ms 1/2 time (test code = 4113749008) LVOT stroke volume 0.74 ml (test code = 1540366515) AV LVOT peak 4.69 mmHg gradient (test code = 9697082490) Ao Root Diameter 3.34 cm (test code = 1438960000) MV mean gradient 1.92 mmHg (test code = 3132535071) LV SYS VOL (test 46.16 ml 21-61 code = 4104842894) LV ANDERSON VOL (test 104.46 ml 62-150 code = 9401427917) LA area s A4C (test 17.60 cm2 code = 7637654178) LV SI Teich 2D (test 28.83 ml/m2 code = 1379473580) LV SV Teich 2D (test 58.30 ml code = 4270371844) LV Vol s Teich PSAX 46.16 ml (test code = 3844046535) LVOT CI (test code = 3.53 l/min/m2 2364424178) LVOT CO (test code = 7.14 l/min 4582113755) LVOT HR for LVOT CO 98.89 bpm (test code = 1169133596) LVOT SI (test code = 35.72 ml/m2 2012787469) MR peak grad (test 3.00 mmHg code = 4851533388) MV Vmax (test code = 0.87 m 2035424123) MV VTI Tips (test 0.14 m code = 7974826038) BSA Haycock (test 2.10 m2 code = 3281555354) AoV Vmn (test code = 0.97 m/s 7700572100) IVS s 2D (test code 1.17 cm = 4341662935) LV FS Teich 2D (test 29.09 code = 0127432726) MV AE ratio (test 1.17 code = 7720590304) LV FS Cube 2D (test 29.09 code = 1013025630) LVOT Vmn (test code 0.75 = 8964716959) Pt Size (test code = 170.18 3637993392) Pt Wt (test code = 90.72 9747781038) Aov area Vmn (test 3.05 cm2 code = 1894503889) LVOT mean grad (test 2.57 mmHg code = 5168521198) 85 of MPHR (test 140.25 code = 4317525691) AoV area I VMN bsa 1.51 cm2/m2 (test code = 4554102619) Calc MPHR (test code 165.01 bpm = 7165921184) IVS pct thck PLAX 39.76 % (test code = 4708029826) LV SI Cube 2D (test 33.91 ml/m2 code = 5754709114) LV SV Cube 2D (test 68.57 ml code = 3894405379) LV vol d cube 2D 106.56 ml (test code = 8839958500) LV vol s cube 2D 38.00 ml (test code = 4716995007) LVPW pct thck PLAX 35.24 % (test code = 8692539845) LVPW s PLAX (test 1.16 cm code = 5347902091) MV Decel slope (test 8.38 m/s2 code = 6044469914) Pred Exer Dur R1 9.48 (test code = 1791287897) Pred METS R1 (test 9.75 code = 2996784876) LA Vol MOD A4C (test 46.56 ml code = 3644100489) Velocity Ratio 0.80 m/s (V1/V2) (test code = 4689) EF (test code = 56 % 5695650737) E/A ratio (test code 0.85 = 7864690459) LVOT VTI (CM) (test 21.00 cm code = 6692816624) MOE (test code = MOE) Left Ventricle: [...] normal. Lab Interpretation Abnormal (test code = 25206-4) [facility] YgjqhqcaXWXT-LaS-4 (COVID-19) RNA [Presence] in Respiratory specimen by LEILANI with probe [id number] 00:11:33 Test Item Value Reference Range Interpretation Comments SARS-CoV-2 (COVID-19) RNA Not detected [Presence] in Respiratory specimen by LEILANI with probe detection (test code = 17239-2) Whether patient is employed in a Unknown healthcare setting (test code = 32825-2) Whether the patient has symptoms Unknown related to condition of interest (test code = 45651-4) Whether the patient was Unknown hospitalized for condition of interest (test code = 54424-6) Whether the patient was admitted Unknown to intensive care unit (ICU) for condition of interest (test code = 12139-5) Whether patient resides in a Unknown congregate care setting (test code = 49506-5) status (test code = Unknown 41199-2) Date and time of symptom onset Unknown (test code = 01974-6) [facility] [id number] 20:52:15 Test Item Value Reference Range Interpretation Comments BSA (test code = 2.03 m2 5979435433) BSA Rashid (test code 2.12 m2 = 7869082686) BSA Haycock (test 2.11 m2 code = 3296728836) Pred METS R1 (test 9.76 code = 7579547354) Pred Exer Dur R1 9.48 (test code = 7144044102) Calc MPHR (test 165.06 bpm code = 8238868300) 85 of MPHR (test 140.30 code = 7210575000) Pt Wt (test code = 91.17 6310268179) Pt Size (test code 170.18 = 6118897800) BMI (test code = 31.48 kg/m2 8218689207) MOE (test code = MOE) Left Ventricle: [...] study. The probe was inserted by the chief nursing executive. There was no probe insertion difficulty. Anesthesia was given. Refer to anesthesia note. The patient tolerated the procedure well and recovered without any complications.Prior StudyThere were no significant changes noted when compared to the prior TTE study. [id number] 20:52:15 Test Item Value Reference Range Interpretation Comments BSA (test code = 2.03 m2 8282172206) BSA Rashid (test code 2.12 m2 = 3889442492) BSA Haycock (test 2.11 m2 code = 8074537651) Pred METS R1 (test 9.76 code = 8368868569) Pred Exer Dur R1 9.48 (test code = 5160579445) Calc MPHR (test 165.06 bpm code = 4312672838) 85 of MPHR (test 140.30 code = 8937862781) Pt Wt (test code = 91.17 0027430436) Pt Size (test code 170.18 = 0978564889) BMI (test code = 31.48 kg/m2 8567727242) MOE (test code = MOE) Left Ventricle: [...] study. The probe was inserted by the chief nursing executive. There was no probe insertion difficulty. Anesthesia was given. Refer to anesthesia note. The patient tolerated the procedure well and recovered without any complications.Prior StudyThere were no significant changes noted when compared to the prior TTE study. [facility] myocardial [id number] 21:20:55 Test Item Value Reference Range Interpretation Comments Target HR (test 166.00 bpm code = 8101104892) Resting HR (test 99 BPM code = 0264039746) Resting BP (test 112/70 mmHg code = 4377857865) O2 sat rest (test 99 % code = 5576769625) Post Peak HR (test 113 bpm code = 5936893975) Percent HR (test 68.07 % code = 3884052403) Post Peak BP (test 112/70 mmHg code = 0710685248) O2 sat peak (test 98 % code = 5974726377) Nuc Stress EF (test 63 % code = 1033190928) Radiology Study observation (narrative) (test code = 39795-7) MOE (test code = MOE) Conclusion: Abnormal [...] The resting administration time was at 10:07 [employer] on 04/17/2022. Resting images obtained at 11:22 [employer]. Images performed at stress after an injection of 30.5 mCi. The stress administration time was at 12:20 [employer] on 04/17/2022. Stress images obtained at 13:36 [employer].Nuclear Study QualityA perfusion 1-day rest/stress protocol was [...] Scores: SDS Score: N/A Percentage Abnormal: N/A [facility] myocardial [id number] 21:20:55 Test Item Value Reference Range Interpretation Comments Target HR (test 166.00 bpm code = 9518658678) Resting HR (test 99 BPM code = 2138782368) Resting BP (test 112/70 mmHg code = 5083395115) O2 sat rest (test 99 % code = 3427193728) Post Peak HR (test 113 bpm code = 8683455924) Percent HR (test 68.07 % code = 6542691289) Post Peak BP (test 112/70 mmHg code = 2486549992) O2 sat peak (test 98 % code = 5163254166) Nuc Stress EF (test 63 % code = 2345289891) Radiology Study observation (narrative) (test code = 68314-6) MOE (test code = MOE) Conclusion: Abnormal [...] The resting administration time was at 10:07 [employer] on 04/17/2022. Resting images obtained at 11:22 [employer]. Images performed at stress after an injection of 30.5 mCi. The stress administration time was at 12:20 [employer] on 04/17/2022. Stress images obtained at 13:36 [employer].Nuclear Study QualityA perfusion 1-day rest/stress protocol was [...] Scores: SDS Score: N/A Percentage Abnormal: N/A [facility] stress [id number] 21:15:16 Test Item Value Reference Range Interpretation Comments Resting HR (test code 99 = 2761561307) Resting BP (test code 112&70 = 2651844477) Peak MET Achieved 1.0 (test code = 8218447549) Protocol Name (test LEXISCAN code = 1290254076) Time in Exercise Phase 00:00:53 (test code = 8019149274) Max Systolic BP (test 112 code = 9624195591) Max Diastolic BP (test 70 code = 5710504202) Max Heart Rate (test 113 code = 1012752844) Max Predicted Heart 166 Rate (test code = 5308284636) Target HR Formula (220 - Age)*100% (test code = 6761552862) Test Indication (test code = 2474232139) Arrhy During Ex (test none code = 5667876966) ECG Interp Before EX atrial fibrillation (test code = 5609133190) ECG Interp During Ex NONSPECIFIC (test code = 4220711198) Ex Summary Comment Myoview to follow (test code = 1809377483) Chest Pain Statement none (test code = 2649045718) Overall HR Response to PHARMACOLOGIC STRESS Exercise (test code = 0862468914) Overall BP Response To normal resting BP - Exercise (test code = appropriate response 7366177363) Reason for Termination Protocol completed (test code = 1898793350) Stress Test Impression MYOVIEW TO (test code = FOLLOW--Electronically 2852626857) Signed By Jaspreet Cannon MD ([id number]) on 04/18/2022 3:15:13 [facility] [id number] 21:15:16 Test Item Value Reference Range Interpretation Comments Resting HR (test code 99 = 0339886938) Resting BP (test code 112&70 = 4378200367) Peak MET Achieved 1.0 (test code = 9757052657) Protocol Name (test LEXISCAN code = 8665270642) Time in Exercise Phase 00:00:53 (test code = 1912779630) Max Systolic BP (test 112 code = 9069926148) Max Diastolic BP (test 70 code = 7814599882) Max Heart Rate (test 113 code = 0575261026) Max Predicted Heart 166 Rate (test code = 3517069132) Target HR Formula (220 - Age)*100% (test code = 3496987555) Test Indication (test code = 8024092478) Arrhy During Ex (test none code = 9129565074) ECG Interp Before EX atrial fibrillation (test code = 3052674649) ECG Interp During Ex NONSPECIFIC (test code = 7614498966) Ex Summary Comment Myoview to follow (test code = 5036995016) Chest Pain Statement none (test code = 3688997759) Overall HR Response to PHARMACOLOGIC STRESS Exercise (test code = 8344876630) Overall BP Response To normal resting BP - Exercise (test code = appropriate response 0959726379) Reason for Termination Protocol completed (test code = 9572955465) Stress Test Impression MYOVIEW TO (test code = FOLLOW--Electronically 5487676668) Signed By Jaspreet Cannon MD ([id number]) on 04/18/2022 3:15:13 PM [facility], (w Contrast, Strain and 3D if needed)2022-04-14 21:07:42 Test Item Value Reference Interpretation Comments Range EF (test code = 59 % 52-72 2516652181) LV EF,BP (test code 57.09 % = 2009696468) IVS,d (test code = 1.13 cm 0.6-1 A 0591288988) IVS s 2D (test code 1.32 cm = 9736565565) LVPWD,d (test code 1.09 cm 0.60-1.19 = 1580312282) LVPW s PLAX (test 1.37 cm code = 7645889092) LV,s (test code = 3.04 cm 8762138324) LVOT Diam,S (test 2.09 cm code = 6798428051) LV ANDERSON VOL (test 88.75 ml 62-150 code = 1614620051) LV SYS VOL (test 36.02 ml 21-61 code = 2059855537) LV Vol,d A2C (test 82.11 mL code = 4423073693) LV Vol,s A2C (test 34.60 mL code = 1148574790) LV Vol,d A4C (test 81.73 ml code = 7975288644) LV Vol,s A4C (test 37.26 ml code = 7237358051) MV Peak E Sander (test 0.89 m/s code = 3674793632) MV Peak A Sander (test 0.25 m/s code = 2709844473) E/A ratio (test 3.56 See_Comment A [Automated code = 0476561755) message] The system which generated this result transmitted reference range: <=0.8. The reference range was not used to interpret this result as normal/abnormal . E wave decelartion 177.02 See_Comment A [Automat ed time (test code = message] T he 6512435335) system which generated this result transmitted reference range: 200 msec. The reference range was not used to interpret this result as normal/abnormal . LV Systolic Volume 17.13 mL/m2 11-31 Index (test code = 9401457722) LV Diastolic Volume 40.65 mL/m2 34-74 Index (test code = 7794685442) LV,d (test code = 4.42 cm 5429852917) IVS/LVPW,2D (test 1.03 code = 5376655075) LV EF,2D (test code 67.66 % = 6091105709) LV FS Cube 2D (test 31.36 code = 3141892338) LV FS Teich 2D 31.36 (test code = 5142299437) LV SI Teich 2D 26.07 ml/m2 (test code = 9582005926) LV SV Teich 2D 52.72 ml (test code = 9104691681) LV Vol s Teich PSAX 36.02 ml (test code = 3993965855) LVOT stroke volume 0.48 cm3 (test code = 4843295884) Left Atrium 3.37 cm See_Comment [Automated Dimension Anterior message] The (test code = system which 5630217752) generated this result transmitted reference range: <=4. The reference range was not used to interpret this result as normal/abnormal . LA Vol MOD A4C 44.03 ml (test code = 7430216386) LA area s A4C (test 16.42 cm2 code = 8461690616) LVOT area (test 3.43 cm2 code = 7377355069) LVOT Vmax (test 0.86 m/s code = 4228130459) AoV Mean PG (test 3.31 See_Comment [Automate d code = 7193205581) message] The system which generated this result transmitted reference range: 20 mmHg. The reference range was not used to interpret this result as normal/abnormal . AoV Peak PG (test 4.75 mmHg code = 4764883376) AV LVOT peak 2.89 mmHg gradient (test code = 1721534454) AoV area i VTI BSA 1.33 cm2/m2 See_Comment [Automat ed Jean Claude (test code = message] The 9355814030) system which generated this result transmitted reference range: >=0.85. The reference range was not used to interpret this result as normal/abnormal . AoV Area, Vmax 2.67 cm2 See_Comment [Automated (test code = message] The 0845118885) system which generated this result transmitted reference range: >=1.5. The reference range was not used to interpret this result as normal/abnormal . LVOT VTI (CM) (test 14.00 cm code = 3609900820) AoV Vmax (test code 1.11 m/s = 3211927317) AoV Vmn (test code 0.88 m/s = 6628184987) AoV Area, VTI (test 2.69 cm2 code = 8207928617) LVOT CO (test code 5.03 l/min = 9938718307) LVOT CI (test code 2.49 l/min/m2 = 5025084711) LVOT HR for LVOT CO 113.01 bpm (test code = 3578404184) LVOT SI (test code 22.01 ml/m2 = 5168540696) Velocity Ratio 0.77 m/s (V1/V2) (test code = 4689) MV stenosis 41.13 ms See_Comment [Automated pressure 1/2 time message] T he (test code = system which 8669587916) generated this result transmitted reference range: <=150. The reference range was not used to interpret this result as normal/abnormal . MV E A ratio (test 6.25 code = 9943673846) MV valve area p 1/2 5.35 cm2 method (test code = 7160013236) E prime lat (test 0.04 code = 5833310235) E prime sept (test 0.03 code = 3344729838) RVOT Vmax (test 0.87 m/s code = 0881902103) PV Pk Grad (test 2.43 See_Comment [Automated code = 9299307642) message] The system which generated this result transmitted reference range: 36 mmHg. The reference range was not used to interpret this result as normal/abnormal . RVOT pk grad (test 3.02 mmHg code = 2012046933) PV VMAX (test code 0.78 m/s See_Comment [Automat ed = 9262045267) message] The system which generated this result transmitted reference range: <=3. The reference range was not used to interpret this result as normal/abnormal . Ao Root Diameter 2.77 cm See_Comment [Automated (test code = message] The 0935594860) system which generated this result transmitted reference range: <=3.99. The reference range was not used to interpret this result as normal/abnormal . Ao Root Diameter 2.77 cm (test code = 7058439570) Ascending aorta 2.95 cm (test code = 6157932208) BSA (test code = 2.02 m2 9147046303) BSA Rashid (test code 2.11 m2 = 9195426413) BSA Radha (test 2.10 m2 code = 6002495370) Pred METS R1 (test 9.76 code = 4259677692) Pred Exer Dur R1 9.49 (test code = 4825615657) MV Decel slope 5.02 m/s2 (test code = 4563432418) LVPW pct thck PLAX 25.29 % (test code = 8677229369) LV vol s cube 2D 27.97 ml (test code = 7847663039) LV vol d cube 2D 86.49 ml (test code = 4767529745) LV SV Cube 2D (test 58.52 ml code = 1048492553) LV SI Cube 2D (test 28.94 ml/m2 code = 4691869463) IVS pct thck PLAX 16.96 % (test code = 2086108444) Calc MPHR (test 165.08 bpm code = 7732711698) AoV area I VMN bsa 1.20 cm2/m2 (test code = 9369440889) 85 of MPHR (test 140.32 code = 0288720084) RVOT VTI (test code 0.14 m = 8358593556) RVOT Vmn (test code 0.59 m/s = 4826281030) RVOT mean grad 1.54 mmHg (test code = 2014236764) LVOT mean grad 1.67 mmHg (test code = 6715267495) Aov area Vmn (test 2.42 cm2 code = 2743855197) Pt Wt (test code = 90.72 2290221730) Pt Size (test code 170.18 = 6291980940) MV AE ratio (test 0.16 code = 5255398347) LVOT Vmn (test code 0.61 = 3857464736) PV Vmn (test code = 17.84 m/s 2109818185) LV Vol Index s 41.57 ml/m2 bpmod BSA Caldwell (test code = 7948362373) LV SI MOD BP BSA 23.73 ml/m2 Jean Claude (test code = 2080348600) BMI (test code = 31.32 kg/m2 9893388870) LV Vol,s BP (test 36.07 nl code = 2129211746) LV Vol,d BP (test 84.05 ml code = 5780760268) LV SV,BP (test code 47.99 % = 5685355271) LV SV,A4C (test 44.47 % code = 1196969982) LV SV,A2C (test 47.51 % code = 9409890706) Gordo Hastings,s A4C 6.78 cm (test code = 6483568402) Gordo Hastings,s A2C 6.94 cm (test code = 2914331617) Gordo Hastings,d A4C 7.48 cm (test code = 2868588890) Gordo Hastings,d A2C 7.91 cm (test code = 3327229261) LV EF,A4C (test 54.41 % code = 8164384920) LV EF,A2C (test 57.86 % code = 3565581877) AoV VTI (test code 0.16 m = 6498981492) LVOT VTI (test code 0.14 m = 0105748230) MOE (test code = MOE) Left Ventricle: [...] status. Lab Interpretation Abnormal (test code = 64040-4) [facility] (w Contrast, Strain and 3D if needed)2022-04-14 21:07:42 Test Item Value Reference Interpretation Comments Range EF (test code = 59 % 52-72 3842103422) LV EF,BP (test code 57.09 % = 1347549066) IVS,d (test code = 1.13 cm 0.6-1 A 2224717516) IVS s 2D (test code 1.32 cm = 2900770625) LVPWD,d (test code 1.09 cm 0.60-1.19 = 3479911024) LVPW s PLAX (test 1.37 cm code = 8806871798) LV,s (test code = 3.04 cm 3507622662) LVOT Diam,S (test 2.09 cm code = 9827816414) LV ANDERSON VOL (test 88.75 ml 62-150 code = 3343601757) LV SYS VOL (test 36.02 ml 21-61 code = 3499103755) LV Vol,d A2C (test 82.11 mL code = 2931530364) LV Vol,s A2C (test 34.60 mL code = 0514840439) LV Vol,d A4C (test 81.73 ml code = 7870531830) LV Vol,s A4C (test 37.26 ml code = 0979888357) MV Peak E Sander (test 0.89 m/s code = 2683065231) MV Peak A Sander (test 0.25 m/s code = 4322387228) E/A ratio (test 3.56 <=0.8 A code = 9194696740) E wave decelartion 177.02 See_Comment A [Automat ed time (test code = message] T he 9940348704) system which generated this result transmitted reference range: 200 msec. The reference range was not used to interpret this result as normal/abnormal . LV Systolic Volume 17.13 mL/m2 11-31 Index (test code = 7135615161) LV Diastolic Volume 40.65 mL/m2 34-74 Index (test code = 4712312077) LV,d (test code = 4.42 cm 1663819720) IVS/LVPW,2D (test 1.03 code = 2946536244) LV EF,2D (test code 67.66 % = 5764664872) LV FS Cube 2D (test 31.36 code = 6858310607) LV FS Teich 2D 31.36 (test code = 6098452605) LV SI Teich 2D 26.07 ml/m2 (test code = 3078255621) LV SV Teich 2D 52.72 ml (test code = 4332506813) LV Vol s Teich PSAX 36.02 ml (test code = 3399596547) LVOT stroke volume 0.48 cm3 (test code = 0671694231) Left Atrium 3.37 cm <=4 Dimension Anterior (test code = 2758057838) LA Vol MOD A4C 44.03 ml (test code = 6765492814) LA area s A4C (test 16.42 cm2 code = 6426145388) LVOT area (test 3.43 cm2 code = 6567416417) LVOT Vmax (test 0.86 m/s code = 2725800716) AoV Mean PG (test 3.31 See_Comment [Automate d code = 4216257843) message] The system which generated this result transmitted reference range: 20 mmHg. The reference range was not used to interpret this result as normal/abnormal . AoV Peak PG (test 4.75 mmHg code = 9525656788) AV LVOT peak 2.89 mmHg gradient (test code = 8430378251) AoV area i VTI BSA 1.33 cm2/m2 >=0.85 Caldwell (test code = 7067645213) AoV Area, Vmax 2.67 cm2 >=1.5 (test code = 8583843851) LVOT VTI (CM) (test 14.00 cm code = 0707956028) AoV Vmax (test code 1.11 m/s = 6413955363) AoV Vmn (test code 0.88 m/s = 7305193218) AoV Area, VTI (test 2.69 cm2 code = 9804876489) LVOT CO (test code 5.03 l/min = 0556722929) LVOT CI (test code 2.49 l/min/m2 = 7842291112) LVOT HR for LVOT CO 113.01 bpm (test code = 3631633298) LVOT SI (test code 22.01 ml/m2 = 8137570067) Velocity Ratio 0.77 m/s (V1/V2) (test code = 4689) MV stenosis 41.13 ms <=150 pressure 1/2 time (test code = 9974970901) MV E A ratio (test 6.25 code = 9689804762) MV valve area p 1/2 5.35 cm2 method (test code = 7047965242) E prime lat (test 0.04 code = 7163500973) E prime sept (test 0.03 code = 2630653855) RVOT Vmax (test 0.87 m/s code = 7586171656) PV Pk Grad (test 2.43 See_Comment [Automated code = 5435513102) message] The system which generated this result transmitted reference range: 36 mmHg. The reference range was not used to interpret this result as normal/abnormal . RVOT pk grad (test 3.02 mmHg code = 0170022105) PV VMAX (test code 0.78 m/s <=3 = 4391611937) Ao Root Diameter 2.77 cm <=3.99 (test code = 0194928181) Ao Root Diameter 2.77 cm (test code = 7232757065) Ascending aorta 2.95 cm (test code = 6387795634) BSA (test code = 2.02 m2 2299130795) BSA Rashid (test code 2.11 m2 = 4626243521) BSA Haycock (test 2.10 m2 code = 1052350960) Pred METS R1 (test 9.76 code = 7975799920) Pred Exer Dur R1 9.49 (test code = 2076133896) MV Decel slope 5.02 m/s2 (test code = 0886988854) LVPW pct thck PLAX 25.29 % (test code = 4759618089) LV vol s cube 2D 27.97 ml (test code = 5318291757) LV vol d cube 2D 86.49 ml (test code = 3026582567) LV SV Cube 2D (test 58.52 ml code = 7843736988) LV SI Cube 2D (test 28.94 ml/m2 code = 4518681445) IVS pct thck PLAX 16.96 % (test code = 6493708717) Calc MPHR (test 165.08 bpm code = 7065680024) AoV area I VMN bsa 1.20 cm2/m2 (test code = 9746338531) 85 of MPHR (test 140.32 code = 8388086823) RVOT VTI (test code 0.14 m = 1121056116) RVOT Vmn (test code 0.59 m/s = 1551655767) RVOT mean grad 1.54 mmHg (test code = 4736941038) LVOT mean grad 1.67 mmHg (test code = 3323613251) Aov area Vmn (test 2.42 cm2 code = 2499868199) Pt Wt (test code = 90.72 3773038188) Pt Size (test code 170.18 = 2925954038) MV AE ratio (test 0.16 code = 8905331365) LVOT Vmn (test code 0.61 = 3804347692) PV Vmn (test code = 17.84 m/s 9666197632) LV Vol Index s 41.57 ml/m2 bpmod BSA Caldwell (test code = 3096058815) LV SI MOD BP BSA 23.73 ml/m2 Jean Claude (test code = 0778694966) BMI (test code = 31.32 kg/m2 4130599220) LV Vol,s BP (test 36.07 nl code = 8236823039) LV Vol,d BP (test 84.05 ml code = 9574122297) LV SV,BP (test code 47.99 % = 1337128143) LV SV,A4C (test 44.47 % code = 7745676045) LV SV,A2C (test 47.51 % code = 5757986939) Gordo Hastings,s A4C 6.78 cm (test code = 9743074699) Gordo Hastings,s A2C 6.94 cm (test code = 3354309107) Gordo Hastings,d A4C 7.48 cm (test code = 1561088512) Gordo Hastings,d A2C 7.91 cm (test code = 8425445092) LV EF,A4C (test 54.41 % code = 8008137524) LV EF,A2C (test 57.86 % code = 5564021082) AoV VTI (test code 0.16 m = 1128359356) LVOT VTI (test code 0.14 m = 9764171668) MOE (test code = MOE) Left Ventricle: [...] status. Lab Interpretation Abnormal (test code = 54858-2) [facility] CwamninuDBNJ-NoN-7 (COVID-19) RNA [Presence] in Respiratory specimen by LEILANI with probe [id number] 05:21:05 Test Item Value Reference Range Interpretation Comments SARS-CoV-2 (COVID-19) RNA Not detected [Presence] in Respiratory specimen by LEILANI with probe detection (test code = 86561-9) Whether patient is employed in a Unknown healthcare setting (test code = 20326-6) Whether the patient has symptoms Unknown related to condition of interest (test code = 54502-9) Whether the patient was Unknown hospitalized for condition of interest (test code = 70423-0) Whether the patient was admitted Unknown to intensive care unit (ICU) for condition of interest (test code = 69470-2) Whether patient resides in a Unknown congregate care setting (test code = 53519-1) status (test code = Unknown 82814-7) Date and time of symptom onset Unknown (test code = 75043-8) [facility] ED Preliminary Interpretation - Not an [id number] 21:56:45 Test Item Value Reference Range Interpretation Comments MOE (test code = MOE) Fortino Lozano MD 04/12/2022 9:18 [facility] [place] Preliminary Interpretation - Not an OrderPerformed by: Fortino Lozano MDAuthorized by: Fortino Lozano MD ECG reviewed by ED Physician in the absence of a chief nursing executive: yes Interpretation: Interpretation: abnormal Rate: ECG rate: 116 ECG rate assessment: tachycardic Rhythm: Rhythm: sinus tachycardia Ectopy: Ectopy: none QRS: QRS axis: Left QRS intervals: NormalConduction: Conduction: abnormal Abnormal conduction: complete RBBB ST segments: ST segments: NormalT waves: T waves: normal Comments: Similar to 10/10 Lab Interpretation Abnormal (test code = 39481-4) [facility] Preliminary Interpretation - Not an [id number] 21:56:45 Test Item Value Reference Range Interpretation Comments MOE (test code = MOE) Fortino Lozano MD 04/12/2022 9:18 [facility] Preliminary Interpretation - Not an OrderPerformed by: Fortino Lozano MDAuthorized by: Fortino Lozano MD ECG reviewed by ED Physician in the absence of a chief nursing executive: yes Interpretation: Interpretation: abnormal Rate: ECG rate: 116 ECG rate assessment: tachycardic Rhythm: Rhythm: sinus tachycardia Ectopy: Ectopy: none QRS: QRS axis: Left QRS intervals: NormalConduction: Conduction: abnormal Abnormal conduction: complete RBBB ST segments: ST segments: NormalT waves: T waves: normal Comments: Similar to 10/10 Lab Interpretation Abnormal (test code = 53981-4) [facility] Preliminary Interpretation - Not an [id number] 21:56:45 Test Item Value Reference Range Interpretation Comments MOE (test code = MOE) Fortino Lozano MD 04/12/2022 9:18 [facility] Preliminary Interpretation - Not an OrderPerformed by: Fortino Lozano MDAuthorized by: Fortino Lozano MD ECG reviewed by ED Physician in the absence of a chief nursing executive: yes Interpretation: Interpretation: abnormal Rate: ECG rate: 116 ECG rate assessment: tachycardic Rhythm: Rhythm: sinus tachycardia Ectopy: Ectopy: none QRS: QRS axis: Left QRS intervals: NormalConduction: Conduction: abnormal Abnormal conduction: complete RBBB ST segments: ST segments: NormalT waves: T waves: normal Comments: Similar to 10/10 Lab Interpretation Abnormal (test code = 90325-1) [facility] Preliminary Interpretation - Not an [id number] 21:56:45 Test Item Value Reference Range Interpretation Comments MOE (test code = MOE) Fortino Lozano MD 04/12/2022 9:18 [facility] Preliminary Interpretation - Not an OrderPerformed by: Fortino Lozano MDAuthorized by: Fortino Lozano MD ECG reviewed by ED Physician in the absence of a chief nursing executive: yes Interpretation: Interpretation: abnormal Rate: ECG rate: 116 ECG rate assessment: tachycardic Rhythm: Rhythm: sinus tachycardia Ectopy: Ectopy: none QRS: QRS axis: Left QRS intervals: NormalConduction: Conduction: abnormal Abnormal conduction: complete RBBB ST segments: ST segments: NormalT waves: T waves: normal Comments: Similar to 10/10 Lab Interpretation Abnormal (test code = 29464-3) [facility] Preliminary Interpretation - Not an [id number] 21:56:45 Test Item Value Reference Range Interpretation Comments MOE (test code = MOE) Fortino Lozano MD 04/12/2022 9:18 [facility] Preliminary Interpretation - Not an OrderPerformed by: Fortino Lozano MDAuthorized by: Fortino Lozano MD ECG reviewed by ED Physician in the absence of a chief nursing executive: yes Interpretation: Interpretation: abnormal Rate: ECG rate: 116 ECG rate assessment: tachycardic Rhythm: Rhythm: sinus tachycardia Ectopy: Ectopy: none QRS: QRS axis: Left QRS intervals: NormalConduction: Conduction: abnormal Abnormal conduction: complete RBBB ST segments: ST segments: NormalT waves: T waves: normal Comments: Similar to 10/10 Lab Interpretation Abnormal (test code = 79101-0) [facility] Preliminary Interpretation - Not an [id number] 21:56:45 Test Item Value Reference Range Interpretation Comments MOE (test code = MOE) Fortino Lozano MD 04/12/2022 9:18 [facility] Preliminary Interpretation - Not an OrderPerformed by: Fortino Lozano MDAuthorized by: Fortino Lozano MD ECG reviewed by ED Physician in the absence of a chief nursing executive: yes Interpretation: Interpretation: abnormal Rate: ECG rate: 116 ECG rate assessment: tachycardic Rhythm: Rhythm: sinus tachycardia Ectopy: Ectopy: none QRS: QRS axis: Left QRS intervals: NormalConduction: Conduction: abnormal Abnormal conduction: complete RBBB ST segments: ST segments: NormalT waves: T waves: normal Comments: Similar to 10/10 Lab Interpretation Abnormal (test code = 09111-9) [facility] Preliminary Interpretation - Not an [id number] 21:56:45 Test Item Value Reference Range Interpretation Comments MOE (test code = MOE) Fortino Lozano MD 04/12/2022 9:18 [facility] Preliminary Interpretation - Not an OrderPerformed by: Fortino Lozano MDAuthorized by: Fortino Lozano MD ECG reviewed by ED Physician in the absence of a chief nursing executive: yes Interpretation: Interpretation: abnormal Rate: ECG rate: 116 ECG rate assessment: tachycardic Rhythm: Rhythm: sinus tachycardia Ectopy: Ectopy: none QRS: QRS axis: Left QRS intervals: NormalConduction: Conduction: abnormal Abnormal conduction: complete RBBB ST segments: ST segments: NormalT waves: T waves: normal Comments: Similar to 10/10 Lab Interpretation Abnormal (test code = 63808-8) [facility] Preliminary Interpretation - Not an [id number] 21:56:45 Test Item Value Reference Range Interpretation Comments MOE (test code = MOE) Fortino Lozano MD 04/12/2022 9:18 [facility] Preliminary Interpretation - Not an OrderPerformed by: Fortino Lozano MDAuthorized by: Fortino Lozano MD ECG reviewed by ED Physician in the absence of a chief nursing executive: yes Interpretation: Interpretation: abnormal Rate: ECG rate: 116 ECG rate assessment: tachycardic Rhythm: Rhythm: sinus tachycardia Ectopy: Ectopy: none QRS: QRS axis: Left QRS intervals: NormalConduction: Conduction: abnormal Abnormal conduction: complete RBBB ST segments: ST segments: NormalT waves: T waves: normal Comments: Similar to 10/10 Lab Interpretation Abnormal (test code = 58781-1) [facility] Preliminary Interpretation - Not an [id number] 21:56:45 Test Item Value Reference Range Interpretation Comments MOE (test code = MOE) Fortino Lozano MD 04/12/2022 9:18 [facility] Preliminary Interpretation - Not an OrderPerformed by: Fortino Lozano MDAuthorized by: Fortino Lozano MD ECG reviewed by ED Physician in the absence of a chief nursing executive: yes Interpretation: Interpretation: abnormal Rate: ECG rate: 116 ECG rate assessment: tachycardic Rhythm: Rhythm: sinus tachycardia Ectopy: Ectopy: none QRS: QRS axis: Left QRS intervals: NormalConduction: Conduction: abnormal Abnormal conduction: complete RBBB ST segments: ST segments: NormalT waves: T waves: normal Comments: Similar to 10/10 Lab Interpretation Abnormal (test code = 59300-8) [facility] Preliminary Interpretation - Not an [id number] 21:56:45 Test Item Value Reference Range Interpretation Comments MOE (test code = MOE) Fortino Lozano MD 04/12/2022 9:18 [facility] Preliminary Interpretation - Not an OrderPerformed by: Fortino Lozano MDAuthorized by: Fortino Lozano MD ECG reviewed by ED Physician in the absence of a chief nursing executive: yes Interpretation: Interpretation: abnormal Rate: ECG rate: 116 ECG rate assessment: tachycardic Rhythm: Rhythm: sinus tachycardia Ectopy: Ectopy: none QRS: QRS axis: Left QRS intervals: NormalConduction: Conduction: abnormal Abnormal conduction: complete RBBB ST segments: ST segments: NormalT waves: T waves: normal Comments: Similar to 10/10 Lab Interpretation Abnormal (test code = 65046-6) [facility] Preliminary Interpretation - Not an [id number] 21:56:45 Test Item Value Reference Range Interpretation Comments MOE (test code = MOE) Fortino Lozano MD 04/12/2022 9:18 [facility] Preliminary Interpretation - Not an OrderPerformed by: Fortino Lozano MDAuthorized by: Fortino Lozano MD ECG reviewed by ED Physician in the absence of a chief nursing executive: yes Interpretation: Interpretation: abnormal Rate: ECG rate: 116 ECG rate assessment: tachycardic Rhythm: Rhythm: sinus tachycardia Ectopy: Ectopy: none QRS: QRS axis: Left QRS intervals: NormalConduction: Conduction: abnormal Abnormal conduction: complete RBBB ST segments: ST segments: NormalT waves: T waves: normal Comments: Similar to 10/10 Lab Interpretation Abnormal (test code = 66358-1) [facility] [Presence] in Respiratory specimen by LEILANI with probe [id number] 10:09:09 Test Item Value Reference Range Interpretation Comments SARS-CoV-2 (COVID-19) RNA Not detected [Presence] in Respiratory specimen by LEILANI with probe detection (test code = 01053-8) Whether patient is employed in a Unknown healthcare setting (test code = 51807-1) Whether the patient has symptoms Unknown related to condition of interest (test code = 09507-9) Whether the patient was Unknown hospitalized for condition of interest (test code = 85641-2) Whether the patient was admitted Unknown to intensive care unit (ICU) for condition of interest (test code = 57583-9) Whether patient resides in a Unknown congregate care setting (test code = 28639-0) status (test code = Unknown 56440-3) Date and time of symptom onset Unknown (test code = 53877-3) [facility]:07[facility] Test Item Value Reference Range Interpretation Comments GLUBED (test code = 170 mg/dL 74-106 H Performe d by certified GLUBED) buffer operator at [facility] [id number] 21:00:00 Test Item Value Reference Range Interpretation Comments GLUBED (test code = 185 mg/dL 74-106 H Performe d by certified GLUBED) buffer operator at [facility] [id number] 15:40:00 Test Item Value Reference Range Interpretation Comments GLUBED (test code = 167 mg/dL 74-106 H Performe d by certified GLUBED) buffer operator at [facility] [id number] 11:13:00 Test Item Value Reference Range Interpretation Comments GLUBED (test code = 212 mg/dL 74-106 H Performe d by certified GLUBED) buffer operator at [facility] [id number] 08:09:00 Test Item Value Reference Range Interpretation Comments GLUBED (test code = 91 mg/dL 74-106 N Performe d by certified GLUBED) buffer operator at [facility] [id number] 20:51:00 Test Item Value Reference Range Interpretation Comments GLUBED (test code = 155 mg/dL 74-106 H Performe d by certified GLUBED) buffer operator at [facility] [id number] 15:53:00 Test Item Value Reference Range Interpretation Comments GLUBED (test code = 130 mg/dL 74-106 H Performe d by certified GLUBED) buffer operator at [facility] [id number] 11:15:00 Test Item Value Reference Range Interpretation Comments GLUBED (test code = 195 mg/dL 74-106 H Performe d by certified GLUBED) buffer operator at [facility] [id number] 07:48:00 Test Item Value Reference Range Interpretation Comments GLUBED (test code = 142 mg/dL 74-106 H Performe d by certified GLUBED) buffer operator at [facility] BASIC METABOLIC [id number] 07:09:00 Test Item Value Reference Range Interpretation [...] Modifi ed MDRD (test code = GFR) formula.[facility] kidney disease is defined as eith er kidney damageor GFR <60 mL/min/1.73 m2 for >3 months. [Automated mess age] The system Person[employer] generated this result transmitted ref erence range: >=60. Th e reference range was not used to int erpret this result as normal/abnormal . CREATININE (test 0.80 mg/dL 0.7-1.3 N code = CREAT) BUN/CREATININE RATIO 7.6 10-20 L (test code = BUN/CREA) CALCIUM (test code = 8.6 mg/dL 8.5-10.1 N CA) CBC W/AUTO [id number] 06:52:00 Test Item Value Reference Range Interpretation [...] DIFF REQUIRED (test code NO = MDIFF) [id number] 20:15:00 Test Item Value Reference Range Interpretation Comments GLUBED (test code = 227 mg/dL 74-106 H Performe d by certified GLUBED) buffer operator at [facility] [id number] 15:49:00 Test Item Value Reference Range Interpretation Comments GLUBED (test code = 191 mg/dL 74-106 H Performe d by certified GLUBED) buffer operator at [facility] [id number] 10:43:00 Test Item Value Reference Range Interpretation Comments GLUBED (test code = 362 mg/dL 74-106 H Performe d by certified GLUBED) buffer operator at [facility] [id number] 08:01:00 Test Item Value Reference Range Interpretation Comments GLUBED (test code = 203 mg/dL 74-106 H Performe d by certified GLUBED) buffer operator at [facility] BASIC METABOLIC [id number] 02:21:00 Test Item Value Reference Range Interpretation [...] >3 months. [Automated mess age] The system Person[employer] generated this result transmitted ref erence range: >=60. Th e reference range was not used to int erpret this result as normal/abnormal . CREATININE (test 0.70 mg/dL 0.7-1.3 N code = CREAT) BUN/CREATININE RATIO 11.6 10-20 N (test code = BUN/CREA) CALCIUM (test code = 8.2 mg/dL 8.5-10.1 L CA) CBC W/AUTO [id number] 02:17:00 Test Item Value Reference Range Interpretation [...] = 0.00 K/mm3 0.0-0.1 N NRBC#) VANCOMYCIN [id number] 22:07:00 Test Item Value Reference Range Interpretation Comments VANCOMYCIN TROUGH (test code = 10.5 ug/mL 10-20 N VANCT) [id number] 20:15:00 Test Item Value Reference Range Interpretation Comments GLUBED (test code = 185 mg/dL 74-106 H Performe d by certified GLUBED) buffer operator at [facility] [id number] 16:48:00 Test Item Value Reference Range Interpretation Comments GLUBED (test code = 280 mg/dL 74-106 H Performe d by certified GLUBED) buffer operator at [facility] [id number] 13:00:00 Test Item Value Reference Range Interpretation Comments GLUBED (test code = 226 mg/dL 74-106 H Performe d by certified GLUBED) buffer operator at [facility] [id number] 11:29:00 Test Item Value Reference Range Interpretation Comments GLUBED (test code = 246 mg/dL 74-106 H Performe d by certified GLUBED) buffer operator at [facility] [id number] 10:34:00 Test Item Value Reference Range Interpretation Comments GLUBED (test code = 227 mg/dL 74-106 H Performe d by certified GLUBED) buffer operator at [facility] [id number] 10:34:00 Test Item Value Reference Range Interpretation Comments GLUBED (test code = 256 mg/dL 74-106 H Performe d by certified GLUBED) buffer operator at [facility] [id number] 10:34:00 Test Item Value Reference Range Interpretation Comments GLUBED (test code = 213 mg/dL 74-106 H Performe d by certified GLUBED) buffer operator at [facility] [id number] 03:23:00 Test Item Value Reference Range Interpretation [...] is a direct measurement.=== ====== BASIC METABOLIC [id number] 18:01:00 Test Item Value Reference Range Interpretation [...] >3 months. [Automated mess age] The system Person[employer] generated this result transmitted ref erence range: >=60. Th e reference range was not used to int erpret this result as normal/abnormal . CREATININE (test 0.80 mg/dL 0.7-1.3 N code = CREAT) BUN/CREATININE RATIO 14.1 10-20 N (test code = BUN/CREA) CALCIUM (test code = 8.3 mg/dL 8.5-10.1 L CA) [id number] 18:01:00 Test Item Value Reference Range Interpretation Comments PHOSPHORUS (test code = PHOS) 2.8 mg/dL 2.5-4.9 N [id number] 18:01:00 Test Item Value Reference Range Interpretation Comments MAGNESIUM (test code = MAG) 1.7 mg/dL 1.8-2.4 L THYROID STIMULATING [id number] 18:01:00 Test Item Value Reference Range Interpretation Comments THYROID STIMULATING 0.667 uIU/mL 0.36-3.74 N TSH REFE RENCE HORMONE (test code = RANGES: EUTHYROID: TSH) 0.35 - 4.3 mIU/ mL HYPO : > 5.5 mI U/mL HYPER : < 0.35 mIU/mL CBC W/AUTO [id number] 18:00:00 Test Item Value Reference Range Interpretation [...] = 0.00 K/mm3 0.0-0.1 N NRBC#) LACTIC [id number] 14:22:00 Test Item Value Reference Range Interpretation Comments LACTIC ACID (test code = LACT) 1.3 mmol/L 0.4-1.9 N - XR TIBIA/FIBULA 2 V [id number] 12:37:00 [facility]Name: HARJINDER COLUNGA : 1965 Sex: M FAX: Jerry Roa MD [phone] [place]: St: REG Name: HARJINDER COLUNGA [facility] : 1965 Age/S: 56/M [address] [facility] Unit #: [id number] Loc: [place] [address] Phys: Jerry Roa MD Acct: [id number] Dis Date: Status: REG ER PHONE #: [phone] Exam Date: 12/31/2021 1226 FAX #: [phone] Reason: leg redness EXAMS: CPT CODE: [id number] XR TIBIA/FIBULA 2 [place] [address] REASON FOR EXAM: leg redness EXAM ORDER [...] appear edematous. Correlate with physical exam. Location[facility] ElectronicallySigned by Magan Rae MD on 12/31/2021 at 1237 Reported and signed by: Magan Rae MD CC: Jerry Roa MD Technologist: FORTINO SOSA RT(R) Trnscrd Date/Time/By: 12/31/2021 (1237) : By: [email or web address] Orig Print D/T: S: 12/31/2021 (1064) PAGE 1 Signed Report- XR KNEE 3 V [id number] 12:37:00 [facility])Name: HARJINDER COLUNGA : 1965 Sex: M FAX: Jerry Roa MD [phone] [place]: B St: REG Name: HARJINDER COLUNGA [facility] : 1965 Age/S: 56/M [place] [facility] Unit #: [id number] Loc: [place] [address] Phys: Jerry Roa MD Acct: [id number] Dis Date: Status: REG ER PHONE #: [phone] Exam Date: 12/31/2021 1226 FAX #: [phone] Reason: leg redness EXAMS: CPT CODE: [id number] XR KNEE 3 V LT [address]64 REASON FOR EXAM: leg redness EXAM ORDER DATE: 12/31/2021 11:19 AM Ordering Amanda: Jerry Roa MD PROCEDURE: - XR KNEE [...] appear edematous. Correlate with physical exam. Location: [facility] at 1237 Reported and signed by: Magan Rae MD CC: Jerry Roa MD Technologist: FORTINO SOSA RT(R) Trnscrd Date/Time/By: 12/31/2021 (0753) : By: [email or web address] Orig Print D/T: S: 12/31/2021 (0545) PAGE 1 Signed ReportBASIC METABOLIC [id number] 12:10:00 Test Item Value Reference Range Interpretation [...] >3 months. [Automated mess age] The system Person[employer] generated this result transmitted ref erence range: >=60. Th e reference range was not used to int erpret this result as normal/abnormal . CREATININE (test code 1.00 mg/dL 0.7-1.3 N = CREAT) BUN/CREATININE RATIO 10.8 10-20 N (test code = BUN/CREA) CALCIUM (test code = 8.8 mg/dL 8.5-10.1 N CA) HEPATIC FUNCTION [id number] 12:10:00 Test Item Value Reference Range Interpretation [...] due ALKP) to change in reagent. LACTIC [id number] 12:08:00 Test Item Value Reference Range Interpretation Comments LACTIC ACID (test 2.1 mmol/L 0.4-1.9 HH Results ca lled to code = LACT) [id number] by [facility] 4921 12/31/21 1208Cr itical results verifie d and read back by Darlyn rse? Y FOR ALL ICU PATIENT EXCLUDING HOLD PLEASE CALL [phone] CBC W/AUTO [id number] 11:58:00 Test Item Value Reference Range Interpretation [...] = 0.00 K/mm3 0.0-0.1 N NRBC#) POC [id number] 16:17:00 Test Item Value Reference Range Interpretation Comments POC glucose (test code 238 mg/dL 65-100 H Opera tor Name: Sherice = 37761-0) FrancoDevice ID : [id number] Lab Interpretation Abnormal (test code = 44380-0) [facility] [id number] 16:17:00 Test Item Value Reference Range Interpretation Comments POC glucose (test code 238 mg/dL 65-100 H Operrian tor Name: Sherice = 51581-1) FrancoDevice ID : [id number] Lab Interpretation Abnormal (test code = 85926-4) [facility]2022-08-24 11:12:00 Test Item Value Reference Range Interpretation Comments Urine culture Mixed yadi Specimen isolate (test <=10-3 col/cc InformationSp ecimen code = 17671-8) [facility]2022-08-24 11:12:00 Test Item Value Reference Range Interpretation Comments Urine culture Mixed yadi Specimen isolate (test <=10-3 col/cc InformationSp ecimen code = 75211-6) Source: Sharyn Ambriz Site: [facility]2022-08-24 11:12:00 Test Item Value Reference Range Interpretation Comments Urine culture Mixed yadi Specimen isolate (test <=10-3 col/cc InformationSp ecimen code = 50298-4) Source: Sharyn Ambriz Site: [facility]2022-08-24 11:12:00 Test Item Value Reference Range Interpretation Comments Urine culture Mixed yadi Specimen isolate (test <=10-3 col/cc InformationSp ecimen code = 88946-5) Source: Sharyn Ambriz Site: [facility]2022-08-24 11:12:00 Test Item Value Reference Range Interpretation Comments Urine culture Mixed yadi Specimen isolate (test <=10-3 col/cc InformationSp ecimen code = 15933-7) [facility]2022-08-24 11:12:00 Test Item Value Reference Range Interpretation Comments Urine culture Mixed yadi Specimen isolate (test <=10-3 col/cc InformationSp ecimen code = 57871-0) Source: Sharyn Ambriz Site: [facility]2022-08-24 11:12:00 Test Item Value Reference Range Interpretation Comments Urine culture Mixed yadi Specimen isolate (test <=10-3 col/cc InformationSp ecimen code = 46531-5) Source: Sh[facility] Site: [facility]2022-08-24 11:12:00 Test Item Value Reference Range Interpretation Comments Urine culture Mixed yadi Specimen isolate (test <=10-3 col/cc InformationSp ecimen code = 66829-5) [facility]2022-08-24 11:12:00 Test Item Value Reference Range Interpretation Comments Urine culture Mixed yadi Specimen isolate (test <=10-3 col/cc InformationSp ecimen code = 36601-1) Source: Sh[facility] Site: [facility]2022-08-24 11:12:00 Test Item Value Reference Range Interpretation Comments Urine culture Mixed yadi Specimen isolate (test <=10-3 col/cc InformationSp ecimen code = 12007-8) Source: Sh[facility] Site: [facility]2022-08-24 11:12:00 Test Item Value Reference Range Interpretation Comments Urine culture Mixed yadi Specimen isolate (test <=10-3 col/cc InformationSp ecimen code = 56721-9) Source: [facility] RNA [Presence] in Respiratory specimen by LEILANI with probe [id number] 06:28:40 Test Item Value Reference Range Interpretation Comments SARS-CoV-2 (COVID-19) RNA Not detected [Presence] in Respiratory specimen by LEILANI with probe detection (test code = 70801-1) Whether patient is employed in a Unknown healthcare setting (test code = 95197-3) Whether the patient has symptoms Unknown related to condition of interest (test code = 15512-0) Whether the patient was Unknown hospitalized for condition of interest (test code = 60235-2) Whether the patient was admitted Unknown to intensive care unit (ICU) for condition of interest (test code = 60330-6) Whether patient resides in a Unknown congregate care setting (test code = 05120-7) status (test code = Unknown 11489-5) Date and time of symptom onset Unknown (test code = 34428-2) [facility] 12 [id number] 16:49:51 Test Item Value Reference Range Interpretation [...] for Inferior infarct are no longer present- [place] [address] [id number] 16:49:51 Test Item Value Reference Range Interpretation [...] [facility] Preliminary Interpretation - Not an [id number] 04:49:00 Test Item Value Reference Range Interpretation Comments MOE (test code = MOE) Norberto Lanier FNP 10/11/2021 11:48 [facility] ED Preliminary Interpretation - Not an OrderPerformed by: Norberto Lanier FNPAuthorized by: Fahad Anna MD ECG reviewed by ED Physician in the absence of a chief nursing executive: yes Interpretation: Interpretation: abnormal Rate: ECG rate: 83 ECG rate assessment: normal Rhythm: Rhythm: sinus rhythm Ectopy: Ectopy: none QRS: QRS axis: Normal QRS intervals: WideConduction: Conduction: abnormal Abnormal conduction: complete RBBB and LAFB ST segments: ST segments: NormalT waves: T waves: non-specific Lab Interpretation Abnormal (test code = 49636-2) [facility] Preliminary Interpretation - Not an [id number] 04:49:00 Test Item Value Reference Range Interpretation Comments MOE (test code = MOE) Norberto Lanier FNP 10/11/2021 11:48 [facility] Preliminary Interpretation - Not an OrderPerformed by: Norberto Lanier FNPAuthorized by: Fahad Anna MD ECG reviewed by ED Physician in the absence of a chief nursing executive: yes Interpretation: Interpretation: abnormal Rate: ECG rate: 83 ECG rate assessment: normal Rhythm: Rhythm: sinus rhythm Ectopy: Ectopy: none QRS: QRS axis: Normal QRS intervals: WideConduction: Conduction: abnormal Abnormal conduction: complete RBBB and LAFB ST segments: ST segments: NormalT waves: T waves: non-specific Lab Interpretation Abnormal (test code = 02201-2) [place] [id number] 18:34:00 Test Item Value Reference Range Interpretation Comments GLUBED (test code = 316 mg/dL 74-106 H Performe d by certified GLUBED) buffer operator at [facility] URINALYSIS [id number] 17:45:00 Test Item Value Reference Range Interpretation [...] Urine Source? Clean CatchDRUGS OF ABUSE SCREEN [id number] 17:45:00 Test Item Value Reference Range Interpretation Comments UR MDMA (test code = NEGATIVE NEGATIVE MDMAQLU) URN COCAINE (test code = NEGATIVE NEGATIVE [A utomated message] COCAURN) The system Personera generated this result transmitted ref erence range: [...] NEGATIVE [A utomated message] OPIATURN) The system Personera generated this result transmitted ref erence range: [...] [A utomated message] = METHAURN) The system Person[employer] generated this result transmitted ref erence range: <300 ng/ mL. The reference r maggi was not used to interpret this result as normal/abnor mal. Urine Source? Clean CatchBASIC METABOLIC [id number] 16:11:00 Test Item Value Reference Range Interpretation [...] >3 months. [Automated mess age] The system Personera generated this result transmitted ref erence range: >=60. Th e reference range was not used to int erpret this result as normal/abnormal . CREATININE (test code 0.99 mg/dL 0.55-1.3 N = CREAT) BUN/CREATININE RATIO 15.2 10-20 N (test code = BUN/CREA) CALCIUM (test code = 8.1 mg/dL 8.0-10.5 N CA) [id number] 16:11:00 Test Item Value Reference Range Interpretation Comments TROPONIN-HS (test 5.1 pg/mL 0-60 N CAUTION: U nits of the code = TROPI) current test m ethodology (pg/mL)differ f rom the prior test meth odology (ng/mL) by a fa ctorof 1000. [id number] 16:11:00 Test Item Value Reference Range Interpretation [...] QUESTED BY THE PHYSICIAN Rian T ANADDITIONAL CH ARGE TO THE PATIENT. CBC W/O [id number] 15:42:00 Test Item Value Reference Range Interpretation [...] N = MPV) - XR CHEST 1 [id number] 15:42:00 [facility])Name: HARJINDER COLUNGA : 1965 Sex: M FAX: Brennan Dupont [phone] [place]: PR St: PRE Name: HARJINDER COLUNGA [facility] : 1965 Age/S: 56/M [address] [facility] Unit #: [id number] Loc: [facility] [address] Phys: Brennan Dupont MD [place], [place] [address] Acct: [id number] Dis Date: Status: PRE ER PHONE #: Exam Date: 08/06/2021 1541 FAX #: Reason: WEAKNESS EXAMS: CPT CODE: [id number] XR CHEST 1 V 36158 REASON FOR EXAM: WEAKNESS Exam Order Date: 08/06/2021 3:22 PM Ordering Amanda: Brennan Dupont MD PROCEDURE: - XR CHEST 1 V COMPARISON: 06/28/2020 FINDINGS: Lines/Tubes: None The lungs are clear. There is no pleural effusion or pneumothorax. Pulmonary vascularity is within normal limits. Cardiomediastinal silhouette and mediastinal contours are unchanged when accounting for differences in technique. Musculoskeletal structures and visualized portions of the upper abdomen are also unchanged. IMPRESSION: No acute cardiopulmonary process. Location: [facility] at 1542 Reported and signed by: Ramu Ramos M.D. CC: Brennan Dupont MD Technologist: Jonathan Herndon RT(R)(CT) Trnscrd Date/Time/By: 08/06/2021 (1542) : By: [email or web address] Orig Print D/T: S: 08/06/2021 (4223) PAGE 1 Signed ReportLone Star Glucose -- Point of Care Meters (04403) 2021-06-29 00:00:00 Test Item Value Reference Range Interpretation Comments BLOOD GLUCOSE-HOME MONITOR (test code = 266 70-110 A 14175-7) [id number] 16:34:00 Test Item Value Reference Range Interpretation Comments TROPONIN-I (test code = TROPI) <0.015 ng/mL 0.00-0.056 N URINALYSIS [id number] 15:41:00 Test Item Value Reference Range Interpretation [...] HPF NONE BACU) Urine Source? Clean CatchURINALYSIS [id number] 15:39:00 Test Item Value Reference Range Interpretation [...] Urine Source? Clean Catch- CT HEAD/BRAIN W/O [id number] 13:23:00 [facility]Name: KEANU HARJINDER : 1965 Sex: M Name: HARJINDER COLUNGA ED : 1965 Age/S: 55 / M [address] [facility] [address] Unit #: [id number] Loc: [address] Phys: Jerry Roa MD [place] [address] Acct: [id number] Dis Date: Status: REG ER PHONE #: Exam Date: 12/24/2020 1305 FAX #: Reason: dizzy EXAMS: CPT CODE: [id number] CT HEAD/BRAIN W/O CONT 05477 HISTORY: dizzy TECHNIQUE: Noncontrast 2.[address] of the head.Examination acquired within 24 hours of arrival. One or more of the following dose reduction techniques were used: Automated exposure control, adjustment of the mA and/or kV according to patient size, and/or utilization of iterative reconstruction technique. DLP 574 mGy-cm. COMPARISON: 12/12/14 FINDINGS : No acute hemorrhage. No CT evidence of [...] at 1323 Reported and signed by: Mayuri Duncna D.O. PAGE 1 Signed Report (CONTINUED) Name: HARJINDER COLUNGA [facility] : 1965 Age/S: 55 / M [address] [facility] [address] Unit #: [id number] Loc: [address] Phys: Jerry Roa MD [place], [place] [address] Acct: [id number] Dis Date: Status: REG ER PHONE #: Exam Date: 12/24/2020 1305 FAX #: Reason: dizzy EXAMS: CPT CODE: [id number] CT HEAD/BRAIN W/O CONT 80487 (Continued) CC: Jerry Roa MD Technologist:Vicky Saba RT(R)(CT) CTDI: DLP: Trnscb Date/Time: 12/24/2020 (1323) [email or web address] Orig Print D/T: S: 12/24/2020 (1326) PAGE 2 Signed ReportBASIC METABOLIC [id number] 12:45:00 Test Item Value Reference Range Interpretation [...] >3 months. [Automated mess age] The system Personera generated this result transmitted ref erence range: >=60. Th e reference range was not used to int erpret this result as normal/abnormal . CREATININE (test 0.77 mg/dL 0.55-1.3 N code = CREAT) BUN/CREATININE RATIO 20.8 10-20 H (test code = BUN/CREA) CALCIUM (test code = 8.1 mg/dL 8.0-10.5 N CA) [id number] 12:45:00 Test Item Value Reference Range Interpretation Comments TROPONIN-I (test code = TROPI) <0.015 ng/mL 0.00-0.056 N CREATINE KINASE (CK)2020-12-24 12:43:00 Test Item Value Reference Range Interpretation Comments CREATINE KINASE (CK) (test code = CK) 38 U/L 39-308 L BASIC METABOLIC [id number] 12:37:00 Test Item Value Reference Range Interpretation [...] >3 months. [Automated mess age] The system Personera generated this result transmitted ref erence range: >=60. Th e reference range was not used to int erpret this result as normal/abnormal . CREATININE (test 0.77 mg/dL 0.55-1.3 N code = CREAT) BUN/CREATININE RATIO 20.8 10-20 H (test code = BUN/CREA) CALCIUM (test code = 8.1 mg/dL 8.0-10.5 N CA) [id number] 12:37:00 Test Item Value Reference Range Interpretation Comments TROPONIN-I (test code = TROPI) pg/mL 0-45 CBC W/O [id number] 12:33:00 Test Item Value Reference Range Interpretation [...] code 9.3 fL 6.7-11.0 N = MPV) [id number] 09:02:00 Test Item Value Reference Range Interpretation Comments GLUBED (test code = GLUBED) 96 MG/DL 74-106 N [id number] 20:42:00 Test Item Value Reference Range Interpretation Comments GLUBED (test code = GLUBED) 213 MG/DL 74-106 H [id number] 16:51:00 Test Item Value Reference Range Interpretation Comments GLUBED (test code = GLUBED) 209 MG/DL 74-106 H [id number] 15:04:00 Test Item Value Reference Range Interpretation Comments GLUBED (test code = GLUBED) 215 MG/DL 74-106 H [id number] 14:45:00 Test Item Value Reference Range Interpretation Comments ACT-ISTAT (test code = ACTI) 213 SEC 74-125 H [id number] 14:14:00 Test Item Value Reference Range Interpretation Comments ACT-ISTAT (test code = ACTI) 274 SEC 74-125 H [id number] 14:13:00 Test Item Value Reference Range Interpretation Comments ACT-ISTAT (test code = ACTI) 241 SEC 74-125 H [id number] 08:29:00 Test Item Value Reference Range Interpretation Comments GLUBED (test code = GLUBED) 115 MG/DL 74-106 H [id number] 19:03:00 Test Item Value Reference Range Interpretation Comments GLUBED (test code = GLUBED) 143 MG/DL 74-106 H [id number] 16:36:00 Test Item Value Reference Range Interpretation Comments GLUBED (test code = GLUBED) 314 MG/DL 74-106 H [id number] 12:15:00 Test Item Value Reference Range Interpretation Comments GLUBED (test code = GLUBED) 130 MG/DL 74-106 H COVID 19 Asymptomatic IH [id number] 09:47:00 Test Item Value Reference Range Interpretation Comments COVID 19 Asymptomatic IH AG (test NEGATIVE Negative code = COVNONPUIAG) Spec Comments: PATIENT GOING TO CATH LABPROTHROMBIN [id number] 09:38:00 Test Item Value Reference Range Interpretation [...] 3.0 Valvular heart disease 2.0 - 3.0 Atri al fibrillation 2. 0 - 3.03. Mechanica l prosthetic valv es (high risk) 2.5 - 3.5 * If oral anticoagulant t herapy is elected to preventrecurren t myocardial infa rction, an INR of 2.5-3 .5 isrecommended, consistent with Food and Drug Administrationr ecommen dations. IS PATIENT ON ANTICOAGULANTS ? 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 TO CNC LASER OPERATOR 1,GLUBED 2020-07-03 08:24:00 Test Item Value Reference Range Interpretation Comments GLUBED (test code = GLUBED) 135 MG/DL 74-106 H BASIC METABOLIC [id number] 06:53:00 Test Item Value Reference Range Interpretation [...] 9.1 mg/dL 8.4-10.2 N CA) CBC W/AUTO [id number] 06:42:00 Test Item Value Reference Range Interpretation [...] = BA#) 0.05 x10 3/uL 0.0-0.1 N [id number] 21:27:00 Test Item Value Reference Range Interpretation Comments GLUBED (test code = GLUBED) 234 MG/DL 74-106 H [id number] 16:22:00 Test Item Value Reference Range Interpretation Comments GLUBED (test code = GLUBED) 195 MG/DL 74-106 H [id number] 12:04:00 Test Item Value Reference Range Interpretation Comments GLUBED (test code = GLUBED) 179 MG/DL 74-106 H [id number] 08:51:00 Test Item Value Reference Range Interpretation Comments GLUBED (test code = GLUBED) 124 MG/DL 74-106 H [id number] 20:53:00 Test Item Value Reference Range Interpretation Comments GLUBED (test code = GLUBED) 129 MG/DL 74-106 H [id number] 18:30:00 Test Item Value Reference Range Interpretation Comments GLUBED (test code = GLUBED) 174 MG/DL 74-106 H [id number] 12:32:00 Test Item Value Reference Range Interpretation Comments GLUBED (test code = GLUBED) 152 MG/DL 74-106 H [id number] 08:40:00 Test Item Value Reference Range Interpretation Comments GLUBED (test code = GLUBED) 98 MG/DL 74-106 N [id number] 20:46:00 Test Item Value Reference Range Interpretation Comments GLUBED (test code = GLUBED) 110 MG/DL 74-106 H - DUP LE ART [id number] 18:07:00 [facility] : 1965 Sex: M FAX: Patrick Ponce Arm [phone] [place]: St: [facility] FAX: Nathanael Romero [phone] --------- [facility] : 1965 Age/S: 55/M [address] Unit #: [id number] Loc: [address] [place] [address] Phys: Patrick Sr DPM R2 Acct: [id number] Dis Date: Status: ADM IN PHONE #: [phone] Exam Date: 06/30/20201730 FAX #: [phone] Reason: WOUNDS EXAMS: CPT CODE: [id number] DUP LE ART INDERJIT 94590 STUDY: Bilateral lower extremity ultrasound with Doppler. HISTORY: Peripheral vascular disease COMPARISON: None. TECHNIQUE: Grayscale, color, and pulsed Doppler images of the bilateral lower extremities were obtained. FINDINGS: Velocities are as follows (cm/sec): RIGHT LOWER EXTREMITY: Commonfemoral artery: 121, biphasic Superficial femoral artery: Proximal: 29, monophasic, Mid: 30, monophasic, Distal: 24, monophasic, Popliteal artery: 56, monophasic Anterior tibial artery: 18, monophasic,Posterior tibial artery: 12, monophasic, Peroneal artery: 16, monophasic, Dorsalis pedis: 15, monophasic LEFT LOWER EXTREMITY: Common femoral artery: 44, biphasic Superficial femoral artery: Proximal:56, triphasic, Mid: 82, triphasic, Distal: 82, biphasic, Popliteal artery: 52, biphasic Anterior tibial artery: 45, monophasic, Posterior tibial artery: 63, monophasic, Peroneal artery: 68, triphasic,Dorsalis pedis: 20, monophasic Right RADAMES: 0.75. The RADAMES: 0.74. IMPRESSION: Increased differential peak systolic velocity for the right common femoral and proximal superficial femoral arteries with monophasic waveforms distal to the common femoral artery indicative of significant stenosis between thesearteries. Left infrapopliteal artery monophasic waveforms consistent with significant arterial disease distal to the popliteal artery. Bilateral RADAMES values compatible with moderate arterial disease. PAGE 1 Signed Report (CONTINUED) FAX: Patrick Sr Arm [phone] [place]: St: [facility] FAX: Nathanael Romero [phone] Name: HARJINDER [facility] : 1965 Age/S: 55/M [address] Unit #: [id number] Loc: [address] [place] [address] Phys: Patrick Sr DPM R2 Acct: [id number] Dis Date: Status: ADM IN PHONE #: [phone] Exam Date: 06/30/2020 1731 FAX #: [phone] Reason: WOUNDS EXAMS: CPT CODE: [id number] DUP LE ART INDERJIT 04939 <Continued> at 1807 Reported and signed by: Donaldo Wen MD CC: Patrick Alba; Nathanael Laureano Technologist: MARK Gallardo Trnscrd Date/Time/By: 06/30/2020 (180) : By: [email or web address] PAGE 2 Signed Report FAX: Patrick Sr Arm [phone] [place]: St: ADM FAX: Nathanael Henriquez [phone] Name: [facility] : 1965 Age/S: 55/M [address] Unit #: [id number] Loc: [address] [place] [address] Phys: Patrick Sr Vasquez R2 Acct: [id number] Dis Date: Status: ADM IN PHONE #: [phone] Exam Date: 06/30/2020 1731 FAX #: [phone] Reason: WOUNDS EXAMS: CPT CODE: [id number] DUP LE ART INDERJIT 32682 <Continued> Orig Print D/T: S: 06/30/2020 (1810) PAGE 3 Signed Report- DOP ART 1-2 LEVELS [id number] 18:07:00 [facility] : 1965 Sex: M FAX: Partick Ponce Adrian [phone] [place]: St: ADM FAX: Pavel Hicks [phone] [facility] 1965 Age/S: 55/M [address] Unit #: [id number] Loc: [address] [place] [address] Phys: Patrick Sr DPM R2 Acct: [id number] Dis Date: Status: ADM IN PHONE #: [phone] Exam Date: 06/30/2020 1731 FAX #: [phone] Reason: WOUNDS, HX OF SMOKING, NON PALP PULSES EXAMS: CPT CODE: [id number] DOP ART 1-2 LEVELS INDERJIT 88527 STUDY: Bilateral lower extremity ultrasound with Doppler. HISTORY: Peripheral vascular disease COMPARISON: None. TECHNIQUE: Grayscale, color, and pulsed Doppler images of the bilateral lower extremities were obtained. FINDINGS: Velocities are as follows (cm/sec): RIGHT LOWER EXTREMITY: Common femoral artery: 121, biphasic Superficial femoral artery: Proximal:29, monophasic, Mid: 30, monophasic, Distal: 24, monophasic, [...] to the common femoral artery indicative of sig nificant stenosis between these arteries. Left infrapopliteal artery monophasic waveforms consistentwith significant arterial disease distal to the popliteal artery. Bilateral RADAMES values compatible with moderate arterial disease. PAGE 1 Signed Report (CONTINUED) FAX: Patrick Sr Arm [phone] [place]: [facility]: ADM FAX: Pavel Hicks MD [phone] Name: HARJINDER COL[facility] : 1965 Age/S: 55/M [address] Unit #: [id number] Loc: [address] [place] [address] Phys: Patrick Sr DPM R2 Acct: [id number] Dis Date: Status: ADM IN PHONE #: [phone] Exam Date: 06/30/2020 1731 FAX #: [phone] Reason: WOUNDS, HX OF SMOKING, NON PALP PULSES EXAMS: CPT CODE: [id number] DOP ART 1-2 LEVELS [facility] [address] <Continued> at 1807 Reported and signed by: Donaldo Wen MD CC: Patrick Sr DPM; Pavel Muñoz MD Technologist: MARK Gallardo Trntxrd Date/Time/By: 06/30/2020 (1806) : By: [email or web address] PAGE 2 Signed Report FAX: Patrick Sr Arm [phone] [place]: [facility]: ADM FAX: Pavel Hicks MD [phone] Name: [place]ER [place] : 1965 Age/S: 55/M [address] Unit #: [id number] Loc: [address] [place] [address] Phys: Patrick Sr DPM R2 Acct: [id number] Dis Date: Status: ADM IN PHONE #: [phone] Exam Date: 06/30/20201730 FAX #: [phone] Reason: WOUNDS, HX OF SMOKING, NON PALP PULSES EXAMS: CPT CODE: [id number] DOP ART 1-2 LEVELS INDEJRIT 65717 <Continued> Orig Print D/T: S: 06/30/2020 (1810) PAGE 3 Signed Report [id number] 16:25:00 Test Item Value Reference Range Interpretation Comments GLUBED (test code = GLUBED) 244 MG/DL 74-106 H [id number] 12:16:00 Test Item Value Reference Range Interpretation Comments GLUBED (test code = GLUBED) 246 MG/DL 74-106 H [id number] 08:54:00 Test Item Value Reference Range Interpretation Comments GLUBED (test code = GLUBED) 172 MG/DL 74-106 H [id number] 21:00:00 Test Item Value Reference Range Interpretation Comments GLUBED (test code = GLUBED) 118 MG/DL 74-106 H [id number] 15:58:00 Test Item Value Reference Range Interpretation Comments GLUBED (test code = GLUBED) 249 MG/DL 74-106 H [id number] 12:28:00 Test Item Value Reference Range Interpretation Comments GLUBED (test code = GLUBED) 285 MG/DL 74-106 H - MRI LOW EXT W/O CONT [id number] 11:17:00 [facility] : 1965 Sex: M FAX: Patrick Ponce Arm [phone] [place]: St: ADM FAX: Pavel Hicks MD [phone] Name: HARJINDER [facility] : 1965 Age/S: 55/M [address] Unit #: [id number] Loc: [address] [place] [address] Phys:RembertoPatrick see Abner DPM R2 Acct: [id number] Dis Date: Status: ADM IN PHONE #: [phone] ExamDate: 06/29/2020 0959 FAX #: [phone] Reason: INDERJIT le WOUNDS IN FORE FOOT EXAMS: CPT CODE: [id number] MRI LOW EXT W/[place] [address] EXAM: - MRI LOW EXT W/O CONT LT HISTORY: INDERJIT le WOUNDS IN FORE FOOT, pain COMPARISON: [...] signed by: Michael Bai MD CC: Patrick Levine R2 Remberto LOPEZ; Pavel Muñoz MD Technologist: Wendy Agee [facility] Date/Time/By: 06/29/2020 (9580) : By: [email or web address] PAGE 1 Signed Report FAX: Patrick Sr Arm [phone] [place]: St: ADM FAX: Pavel Hicks MD [phone] Name: [facility] [facility] 1965 Age/S: 55/M [address] Unit #: [id number] Loc: [address] [place] [address] Phys: Patrick Sr DPM R2 Acct: [id number] Dis Date: Status: ADM IN PHONE #: [phone] Exam Date: 06/29/2020 0959 FAX #: [phone] Reason: BILle WOUNDS IN FORE FOOT EXAMS: CPT CODE: [id number] MRI L[place] EXT W/[place] [address] <Continued> Orig Print D/T: S: 06/29/2020 (4337) PAGE 2 Signed Report- MRI LOW EXT W/O CONT RT 2020-06-29 10:16:00 [facility]: HARJINDER COLUNGA : 1965 Sex: M FAX: Patrick Ponce Arm [phone] [place]: St: ADM FAX: Pavel Hicks MD [phone] [facility] 1965 Age/S: 55/M [address] Unit #: [id number] Loc: [address] [place] [address] Phys: Patrick Sr DPM R2 Acct: [id number] Dis Date: Status: ADM IN PHONE #: [phone] Exam Date: 06/29/2020 0959 FAX #: [phone] Reason: INDERJIT FOOT WOUNDS EXAMS: CPT CODE: [id number] MRI LOWEXT W/[place] [address] EXAM: - MRI LOW EXT W/O CONT RT HISTORY: INDERJIT FOOT WOUNDS COMPARISON: None available at time [...] at 1016 Reported and signed by: Michael mccloud MD CC: Patrick Sr DPM; Pavel Muñoz MD Technologist: Wendy Agee TrnscrdDate/Time/By: 06/29/2020 (1016) : By: [email or web address] PAGE 1 Signed Report FAX: Patrick Sr Arm [phone] [place]: St: ADM FAX: Pavel Hicks MD [phone] Name: HARJINDER [facility] : 1965 Age/S: 55/M [address] Unit #: [id number] Loc: [address] [place] [address] Phys: Patrick Sr DPM R2 Acct: [id number] Dis Date: Status: ADM IN PHONE #: [phone] Exam Date: 06/29/2020958 FAX #: [phone] Reason: INDERJIT FOOT WOUNDS EXAMS: CPT CODE: [id number] [place] EXT W/[place] [address] <Continued> Orig Print D/T: S: 06/29/2020 (1020) PAGE 2 Signed ReportCOMPREHENSIVE METABOLIC [id number] 09:31:00 Test Item Value Reference Range Interpretation [...] N (test code = ALKP) COMPREHENSIVE METABOLIC [id number] 09:30:00 Test Item Value Reference Range Interpretation [...] U/L 38-126 N (test code = ALKP) [id number] 09:28:00 Test Item Value Reference Range Interpretation Comments GLUBED (test code = GLUBED) 184 MG/DL 74-106 H CBC W/AUTO [id number] 07:48:00 Test Item Value Reference Range Interpretation [...] BA#) 0.03 x10 3/uL 0.0-0.1 N SED [id number] 07:48:00 Test Item Value Reference Range Interpretation Comments SED RATE (test code = SEDW) 85 mm/hr 0-20 H HGBA1C - GLYCOSYLATED [id number] 07:08:00 Test Item Value Reference Range Interpretation [...] with these hemo globin variants. CBC W/AUTO [id number] 06:43:00 Test Item Value Reference Range Interpretation [...] BA#) 0.03 x10 3/uL 0.0-0.1 N SED [id number] 06:43:00 Test Item Value Reference Range Interpretation [...] LDL Cholesterol<1 00mg/ dL: Desirable L DL-C mstltpzurtbcs97 0-159 mg/dL: Borderli ne High Risk LDL-C zsntcolpzccpx40 0-189 mg/dL: High ris k LDL-C concentra tion HDL-LDL Cholest adi is affected by a number of facto rs suchas smoking, age and sex.~~~~~~~~~~~ ~~~~~ ~~~~~~~~~~~~~~~ ~~~~~ ~~~~~~~~~~~~~~~ ~~~~~ ~~~~ C REACTIVE [id number] 05:49:00 Test Item Value Reference Range Interpretation [...] LDL Cholesterol<1 00mg/dL : Desirable LDL -C pssvewnjvwbiq07 0-159mg /dL: Borderline High Risk LDL-C mxdnromjhiudz35 0-189mg /dL: High risk LDL-C concentration H DL-LDL Cholesterol is affected by a n umber of factors such as smoking, age an d sex.~~~~~~~~~~~ ~~~~~~~ ~~~~~~~~~~~~~~~ ~~~~~~~ ~~~~~~~~~~~~~~~ ~~~~~ C REACTIVE [id number] 05:42:00 Test Item Value Reference Range Interpretation Comments C REACTIVE PROTEIN (test code = 51.3 mg/L 0-9 H CRP) [id number] 20:47:00 Test Item Value Reference Range Interpretation Comments GLUBED (test code = GLUBED) 253 MG/DL 74-106 H BASIC METABOLIC [id number] 17:16:00 Test Item Value Reference Range Interpretation Comments SODIUM (test code = 130 mmol/L 137-145 L NA) POTASSIUM (test code 4.6 mmol/L 3.4-5.0 N = K) CHLORIDE (test code = 93 mmol/L 98-107 L CL) CARBON DIOXIDE (test 29 mmol/L 22-30 N code = CO2) GLUCOSE (test code = 404 mg/dL 74-106 HH Critica l Value GLU) reported toFirs t Name:[id number] [place] st Name:RESULTS RE AD BACK AND [...] 9.1 mg/dL 8.4-10.2 N CA) LIVER FUNCTION [id number] 17:16:00 Test Item Value Reference Range Interpretation [...] 38-126 N (test code = ALKP) LACTIC [id number] 17:04:00 Test Item Value Reference Range Interpretation Comments LACTIC ACID (test code = LACT) 1.7 mmol/L 0.7-2.0 N - XR FOOT 3 + V [id number] 17:00:00 [facility]: 1965 Sex: M FAX: Giovany Landa MD R1 [place]: [address] St: REG Name: HARJINDER COLUNGA [facility]: 1965 Age/S: 55/M [address] Unit #: [id number] Loc: [place] [address] Phys: Giovany Landa MD R1 Acct: [id number] Dis Date: Status: REG ER PHONE #: [phone] Exam Date: 06/28/20201648 FAX #: [phone] Reason: left foot wound EXAMS: CPT CODE: [id number] XR FOOT 3 + V [place] [address] EXAM: - XR FOOT 3 + V [...] MD Technologist: Lindsey Ha; STUDENT 2ND YEAR Trntxrd Date/Time/By: 06/28/2020 (1700) : By: [email or web address] PAGE1 Signed Report FAX: Giovany Landa MD R1 [place]: St: REG Name: [facility] : 1965 Age/S: 55/M [address] Unit #: [id number] Loc: [place] [address] Phys: Giovany Landa MD R1 Acct: [id number] Dis Date: Status: REG ER PHONE #: [phone] Exam Date: 06/28/20201648 FAX #: [phone] Reason: left foot wound EXAMS: CPT CODE: [id number] XR FOOT 3 + [place] [address] <Continued> Orig PrintD/T: S: 06/28/2020 (8802) PAGE 2 Signed ReportUA RFLX MICR CULT IF [id number] 16:19:00 Test Item Value Reference Range Interpretation [...] oth srcSOURCE OF URINE: CLEAN CATCHCBC W/AUTO [id number] 15:48:00 Test Item Value Reference Range Interpretation [...] 3/uL 0.0-0.1 N - XR CHEST 1 [id number] 15:36:00 [facility] : 1965 Sex: M FAX: Mi Ellis NP [place]: St: PRE -------- Name: [facility] : 1965 Age/S: 55/M [address] Unit #: [id number] Loc: [place] [address] Phys: Mi Ellis NP Acct: [id number] Dis Date: Status: PRE ER PHONE #: [phone] Exam Date: 06/28/2020 1533 FAX #: [phone] Reason: CODE SEPSIS EXAMS: CPT CODE: [id number] XR CHEST 1 V 13128 EXAMINATION: Frontal chest radiograph INDICATION: Code sepsis COMPARISON: 02/27/2016 FINDINGS: Clear lungs. No pleural effusion or pneumothorax. Normal cardiomediastinal silhouette. IMPRESSION: No acute abnormality identified. at 1536 Reported and signed by: Richard Lopez M.D. CC: Mi Ellis NP Technologist: Lindsey Ha; STUDENT 2ND YEAR [facility] Date/Time/By: 06/28/2020 (0480) : By: [email or web address] PAGE 1 Signed Report FAX: Mi Ellis NP [place]: St: PRE Name: HARJINDER COL[facility] : 1965 Age/S: 55/M [address] Unit #: [id number] Loc: [place] [address] Phys: Mi Ellis NP Acct: [id number] Dis Date: Status: PRE ER PHONE #: [phone] Exam Date: 06/28/20203 FAX #: [phone] Reason: CODE SEPSIS EXAMS: CPT CODE: [id number] XR CHEST 1 V 24776 <Continued> Orig Print D/T: S: 06/28/2020 (3740) PAGE 2 Signed Report- US EXTREM NON VASC [id number] 15:47:00[facility] : 1965 Sex: M Patient Name: HARJINDER COLUNGA Unit No: [id number] EXAMS: CPT CODE: [id number] US EXTREM NON VASC LTD 86917 HISTORY: Infection Location: C3 FINDINGS: Sonographic images of the leg were obtained. No soft tissue fluid collection demonstrated. No cystic or solid mass identified. IMPRESSION: 1. Soft tissue edema without discrete dominant fluid collection or cystic or solid mass lesion. at 1547 Reported and signed by: Donaldo Tang M.D. CC: Rod Cerda [employer]ST[employer] Technologist: Ely Lopez RDMS Trnscrbd D/ (1547) MerRXC2 Probe: [id number] Orig Print D/T: S: 02/27/2020 (1550) Probe: CAMELIA Vora NAME: KEAN[address] PHYS: CAMILLA. - [place], [place] [address] : 1965 AGE: 54 SEX: M LOC: VeraPRISCA PHONE #: [phone] EXAM DATE: 02/27/2020 STATUS: REG ER FAX #: [phone] NO: Page 1 Signed ReportBASIC METABOLIC [id number] 15:20:00 Test Item Value Reference Range Interpretation [...] 70-110 HH ON 12/08 AT GLU) 1520, a.[facility].MB8 6 CALLED TO LUDIN LANG. The rep [...] NORMAL code = LIPINDEX) Index/DL GLUCOSE BEDSIDE [id number] 14:32:00 Test Item Value Reference Range Interpretation Comments GLUCOSE BEDSIDE 459 MG/DL 70-119 HH LOW/HIGH KVNG RT VALUE - TESTING (test code = ACTION REQUIRED GLUBED) - CT ABD PELVIS W/O [id number] 16:45:00 Name: HARJINDER COLUNGA [facility] FSED : 1965 Age/S: 54 / M [address] [facility] [address] Unit #: [id number] Loc: [address] Phys: Brennan Dupont MD [place], [place] [address] Acct: [id number] Dis Date: Status: REG ER PHONE #: Exam Date: 10/08/2019 8488 FAX #: Reason: R sided flan pain EXAMS: CPT CODE: [id number] CT ABD PELVIS W/O CONT 10233 EXAM: CT of the abdomen and pelvis without contrast; INFORMATION: Right-sided flank pain; TECHNIQUE: CT dose reduction protocol; Renal stone protocol;FINDINGS: The kidneys are of normal size and shape; no calcifications and no hydronephrosis. No evidence of ureteral stones. No evidence of appendicitis or other acute bowel abnormalities. Parenchymal organs of the abdomen and the biliary system are unremarkable. No pelvic mass lesions; no abnormal fluid collections. Calcified plaques in the abdominal aorta and iliofemoral arteries. Scans through thelung bases are clear. IMPRESSION: 1. No evidence of renal or ureteral stones or of obstructive uropathy. 2. No evidence of acute abdominal or pelvic abnormalities. Location code: [facility] at 1595 Reported and signed by: Feliciano Mcdaniel M.D. CC: Brennan Dupont MD Technologist:Solomon Sands RT(R),CT CTDI: DLP: Trnscb Date/Time: 10/08/2019 (204) Brenda Orig Print D/T: S: 10/08/2019 (0116) PAGE 1 Signed ReportGLUBED 2019-10-08 16:07:00 Test Item Value Reference Range Interpretation Comments GLUBED (test code = 235 mg/dL 74-106 H Performe d by certified GLUBED) buffer operator at [facility] URINALYSIS [id number] 14:44:00 Test Item Value Reference Range Interpretation [...] BLOOD DIPSTICK (test TRACE NEGATIVE code = MARI AELENA) UA PH DIPSTICK (test code 6.0 5.0-8.0 [...] code = per HPF NONE BACU) URINALYSIS [id number] 14:44:00 Test Item Value Reference Range Interpretation [...] = TRACE per HPF NONE BACU) URINALYSIS [id number] 14:44:00 Test Item Value Reference Range Interpretation [...] = per HPF NONE BACU) URINALYSIS W/O [id number] 14:41:00 Test Item Value Reference Range Interpretation [...] NEEDED? (test code = UAMICRO) COMPREHENSIVE METABOLIC [id number] 13:06:00 Test Item Value Reference Range Interpretation [...] 50-139 N code = ALKP) CBC W/AUTO [id number] 12:54:00 Test Item Value Reference Range Interpretation [...] REQUIRED (test code NO = MDIFF) CHEM [id number] 14:06:001.11[facility]ann[facility] SWXEN5514-72-20 14:06:0078 [facility] NguatgbLTIJPVJQDV4496-47-08 14:06:19064Uqhyiwpq HermannHEMATOLOGY 2016-01-03 14:06:00 Test Item Value Reference Range Interpretation Comments PTT (test code = PTT) 24.1 s 22.9-35.8 [facility] NlvoklkCHRURXFYIV9937-19-25 06:35:004.52[facility]annHEMATOLOGY 2016-01-03 06:35:0013.3[facility] PwwmaauHOAWUZRCLT6970-33-56 06:35:009.9[facility] PjvxcmuEQGHTMTJDP1233-69-29 06:35:002.6[facility] LxmlejnBBCDWOSUBT4173-40-44 06:35:00Normal (01/03/16 1:35 AM)[facility] NuykzdhXPNDMGAJSL9644-15-86 06:35:00 Normal (01/03/16 1:35 AM)[facility] EmndicwPCEPGBWIAP0476-82-25 06:35:0019.4 [facility] OoqdlqcHDLVNYQYRF5562-51-92 06:35:0074.2[facility]annHEMATOLOGY 2016-01-03 06:35:000.1[facility] CljkldvJBBJUTXALZ9946-15-62 06:35:000.7[facility] FzvsuiaHULVZAOERV5782-45-86 06:35:000.1[facility] JawpcgnRRJQHIIPWD3055-67-57 06:35:000.6[facility] KfejcsxYXIAWLGFBF3537-17-92 06:35:000.8[facility] UCAADRVFHI9451-87-65 06:35:005.0[facility] HermannCARDIAC PGJYTUY9646-35-65 06:35:0047[facility] HermannCARDIAC OYQOEHV7101-23-80 06:35:0011[facility] CHEM NVPNK7343-79-12 06:35:64966Prmeosaj HermannCHEM KAOFU9491-93-05 06:35:00 13.5[facility] HermannCHEM WVRZZ7002-04-23 06:35:0024[facility]annCHEM PANEL 2016-01-03 06:35:003.5[facility] HermannCHEM OKPUA3417-28-40 06:35:003.1[facility]annCHEM YIRGA3025-09-52 06:35:42605Zkzspilr HermannCHEM HQNBK5918-59-03 06:35:36529Wbasqcyb HermannCHEM HFEQV9415-77-39 06:35:008.2[facility]annCHEM AIBTN5196-17-43 06:35:009[facility]annCHEM CJHEW2415-95-08 06:35:006.3 [facility]annCHEM RDXNW2347-66-19 06:35:003.2[facility]annCHEM PANEL 2016-01-03 06:35:0061[facility]annCHEM URPGH6298-09-51 06:35:000.5[facility]annCHEM JWLCB8198-51-78 06:35:0011[facility]annCHEM XKNZB7773-25-97 06:35:001.0[facility]annCHEM QVGQP2408-28-47 06:35:0022[facility]annCHEM PTMDT9274-75-83 06:35:000.88[facility]annCHEM TJFCW8017-39-96 06:35:008 [facility]annCHEM GNWVF4283-52-15 06:35:40966Apiavuby HermannCHEM PANEL 2016-01-03 06:35:001.8[facility] GphmepkHSZEENEDPU7667-24-92 06:35:007.9[facility] AbiiqqiMKOPNSQSMG4190-54-79 06:35:59973Upmypkrn SqbmnokNHUFRQQLJE6251-34-05 06:35:0034.8[facility] WqltuebDGNAKHREBI3560-90-73 06:35:00 Test Item Value Reference Range Interpretation Comments MCH (test code = MCH) 30.9 pg 27.0-31.0 [facility] KgnxpjpKLEKCTJSSF4919-76-12 06:35:0088.8[facility] HermannHEMATOLOGY 2016-01-03 06:35:0040.2[facility] EjkqbemYDLENEZNST9207-97-04 06:35:0014.0[facility] KsyghhhZBJDZEJVOA3689-36-61 06:35:0012.8[facility]annCHEM RQOVJ4873-80-99 10:18:008.1[facility]annCHEM QLGEP8739-97-02 10:18:0026[facility]annCHEM XSDPO1153-36-21 10:18:82025Okiuwicn HermannCHEM DFHND9980-17-43 10:18:009 [facility]annCHEM PZTXS7671-40-50 10:18:004.0[facility] HermannCHEM PANEL 2015-12-19 10:18:14018Koduujio HermannCHEM TLNUC1555-54-88 10:18:89948Dodqmyfz HermannCHEM NWDEV0727-02-14 10:18:92684Imuyptvo HermannCHEM SJRLC1645-09-98 10:18:000.76[facility] HermannCHEM TDZOX9667-94-73 10:18:0012.0[facility] GRDTGUMAEF0955-42-10 10:18:00 Test Item Value Reference Range Interpretation Comments MCH (test code = MCH) 30.4 pg 27.0-31.0 [facility] EeyejzfFKCOIFKWRP2932-78-88 10:18:68367Qexbksdd HermannHEMATOLOGY 2015-12-19 10:18:0034.3[facility] FbahallJYMSPFZCNX8517-08-30 10:18:008.2[facility] LtxijljSQYKLXCJBO0152-80-03 10:18:0012.4[facility] ZioepnrHWATUVTMEB3675-14-70 10:18:0010.3[facility] NnrzescPQABCNNYFW8075-72-97 10:18:004.51[facility] HKRZGOAVMC2979-51-23 10:18:0088.7[facility] BvoowisAPFBCEXTTA5422-72-82 10:18:00 13.7[facility] DmjfdlpHTFPUUWODH2813-00-92 10:18:0040.0[facility] HermannHEMATOLOGY 2015-12-19 10:18:0018.9[facility] UnmwpcrMVJKOEXMVO3711-33-34 10:18:0073.5[facility] AtdrcqpWIYHORONMT2195-88-40 10:18:006.7[facility] NumcggxRAIHHLJWKD0759-07-19 10:18:007.6[facility] SgcutpuMZQNYMCFTO1414-30-80 10:18:000.4[facility] NUYCTQBEXJ2612-90-33 10:18:000.0[facility] CzkwngsCMGEYAWWNT0729-32-91 10:18:000.7 [facility] JymuhbwTKWDFESCBM0022-55-00 10:18:000.5[facility] HermannHEMATOLOGY 2015-12-19 10:18:001.9[facility] TazwckhCSBDJBVMFN3088-43-30 10:18:000.0[facility] HermannCHEM JFBLP0375-10-76 04:30:0090[facility] HermannCHEM LHJNU9980-48-03 04:30:007.8[facility] HermannCHEM DVGVK1123-14-42 04:30:000.6[facility] HermannCHEM ONFMG1631-81-83 04:30:0062[facility] HermannCHEM ZALZA2071-12-18 04:30:0010 [facility]annCHEM WFDQU5077-21-93 04:30:0013.0[facility] HermannCHEM PANEL 2015-12-13 04:30:0024[facility] HermannCHEM HBNID0729-85-32 04:30:001.34[facility] HermannCHEM NUOHJ9769-78-52 04:30:01873Jciyyxnb HermannCHEM XCNMJ5601-94-43 04:30:0015[facility] HermannCHEM BOZGH6973-39-43 04:30:0017[facility] HermannCHEM PLWKG2261-15-28 04:30:003.7[facility] HermannCHEM LLOOM5539-41-28 04:30:0011 [facility] HermannCHEM SAGSK6272-77-24 04:30:004.0[facility] HermannCHEM PANEL 2015-12-13 04:30:008.6[facility] HermannCHEM CNMJJ7041-93-73 04:30:87397Pbwvkleq HermannCHEM PDASO6853-25-23 04:30:0099[facility] HermannCHEM KJKZJ5061-13-85 04:30:004.1[facility] HermannCHEM GTBCB2525-43-68 04:30:000.9[facility] PLJDHPKXYI0397-24-77 04:30:000.4[facility] NlxpmyqIGRHKTUPLO1590-91-11 04:30:000.0 [facility] TjutyzyZQTJPSZILJ7291-62-03 04:30:001.3[facility] HermannHEMATOLOGY 2015-12-13 04:30:006.1[facility] DveoweuQQOPSJVWUD8418-57-07 04:30:000.3[facility] KbtaqdgZFQABJTBKK4163-42-04 04:30:000.4[facility] BnhdpodUJUXFQAMUB8930-41-30 04:30:005.5[facility] AjpjevkBARCGDVVKC4006-95-01 04:30:0077.4[facility] JILENXWXCS7051-59-39 04:30:0016.4[facility] SfbsrmdGNMKBRJPTW8354-44-87 04:30:00 340[facility] GcoodmyTNNZBOKUUA6804-88-13 04:30:008.4[facility] HermannHEMATOLOGY 2015-12-13 04:30:0034.2[facility] RauifozKCYDDSXPJX1496-20-98 04:30:0012.8[facility] RiqgpwsUTANOBHZPL3562-32-52 04:30:0015.3[facility] EonqhmcWNHFOFIKJE6262-39-13 04:30:0044.7[facility] ByzuzkdPOURIIWSGR3989-67-31 04:30:00 Test Item Value Reference Range Interpretation Comments MCH (test code = MCH) 30.6 pg 27.0-31.0 [facility] TuhikqvOYXFEWUSFJ7006-46-23 04:30:0089.4[facility] HermannHEMATOLOGY 2015-12-13 04:30:007.9[facility] DjnhafsPPFLSIAMCT9678-54-14 04:30:004.99[facility] TxyutdkBMTXRJRZCB3318-54-72 04:30:00<2[facility] EtjijraESYWIEBXHA2628-04-86 04:30:00<0.003[facility] XlmsmktSLZYLZIYCO7313-85-98 04:30:00<3[facility] YnprntxOVLMSJMNAM0630-29-45 04:30:004.1[facility]
[2023-01-25 15:22] LABS: Absolute Lymphocytes (CBC) 1.1 K/uL (0.7-4.9); Hematocrit 37.3 % (39.6-49.0); Lymphocytes % 20.1 % (15.3-44.8); MCV 92.5 fL (80-100); Platelets 295 thou/uL (152-406); RBC Red Blood Cell Count 4.03 M/uL (4.33-5.43)
[2023-01-25] MEDS ORDERED: NA CHLORIDE 0.9% 500 ML ONE (15:25)
--- NOTE | 2023-01-25 15:37 | RAD REPORT ---
EXAM DESCRIPTION: RAD - Chest Single View - 01/25/2023 3:24 pm CLINICAL HISTORY: DYSPNEA Chest pain. COMPARISON: Chest Single View dated 12/05/2022; Chest Single View dated 09/27/2022; Chest Single View d ated 09/18/2022; Chest Single View dated 09/05/2022 FINDINGS: Portable technique limits examination quality. The lungs are grossly clear. The heart is normal in size. No displaced fractures. IMPRESSION: No acute intrathoracic process suspected.
[2023-01-25 15:41] LABS: Albumin 3.4 g/dL (3.4-5.0); Bilirubin Total 0.2 mg/dL (0.2-1.0); Potassium 4.3 mEq/L (3.5-5.1); Protein, Total 7.8 g/dL (6.4-8.2); Troponin High Sensitivity 6.2 pg/mL (<58.9)
--- NOTE | 2023-01-25 16:16 | RAD REPORT ---
EXAM DESCRIPTION: CTAbdomen Pelvis W Contrast - 01/25/2023 4:02 pm CLINICAL HISTORY: Abdominal pain. ABD PAIN COMPARISON: No comparisons TECHNIQUE: Biphasic CT imaging of the abdomen and pelvis was performed with 100 ml non-ionic IV cont rast. All CT scans are performed using dose optimization technique as appropriate and may include automated exposure control or mA/KV adjustment according to patient size. FINDINGS: The lung bases are clear. The liver, spleen, pancreas, adrenal glands and kidneys are within normal limits. Small calcification s are seen in the gallbladder. No bowel obstruction, free air, free fluid or abscess. Significant stool is present throughout the co keyla. The appendix is normal. No evidence of significant lymphadenopathy. 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 IMPRESSION: No acute intra-abdominal or pelvic finding. Prominent stool retention throughout the colon.
[2023-01-25 17:23] LABS: Specific Gravity 1.028 (1.005-1.030); Urine Bacteria None Seen /HPF (<20); Urine Bilirubin NEGATIVE (Negative); Urine Blood Negative (Negative); Urine Clarity Clear (Clear); Urine Color Yellow (Yellow); Urine Glucose NEGATIVE (Negative); Urine Mucus Slight /HPF (None Seen); Urine Protein TRACE (Negative); Urine RBC None Seen /HPF (None Seen); Urine Urobilinogen Normal (Normal); Urine pH 5.5 (5.0-7.0)
--- NOTE | 2023-01-25 17:27 | EDPHYS ---
Physician Documentation [facility] Name: Shivam Block Age: 57 yrs Sex: Male : 1965 Arrival Date: 01/25/2023 Time: 14:40 Bed 7 Private MD: ED Physician Ming White HPI: 01/25 14:49 This 57 yrs old Male presents to ER via EMS with complaints of Abdominal Pain. rt 14:49 Patient presents to the ED with abdominal pain, generalized weakness for about 3 days. rt Patient states that he is usually able to sit up without any assistance, was unable to do so over the past few days. Is reporting a lower abdominal pain. States that he slept for about 2 days, woke up was feeling worse with called EMS. EMS reported that his oxygen saturation was about 70% on room air, correcting with supplemental O2. He did report shortness of breath, however, states that is improving as well as his abdominal pain. Denies nausea, vomiting, urinary symptoms. Denies other acute complaints at this time, symptoms are moderate severity, no other aggravating or alleviating factors.. Historical: - Allergies: 14:45 Fish Containing Products; iw 14:45 SEAFOOD; iw - PMHx: 14:45 Atrial fibrillation; Myocardial infarction; Hypertensive disorder; diabetes mellitus; iw - PSHx: 14:45 bilateral BKA; iw ROS: 14:49 Constitutional: Negative for fever, chills, and weight loss, MS/Extremity: Negative for rt injury and deformity, Skin: Negative for injury, rash, and discoloration, Psych: Negative for depression, anxiety, suicide ideation, homicidal ideation, and hallucinations, 14:49 Respiratory: Positive for shortness of breath, Negative for cough, 14:49 Abdomen/GI: Positive for abdominal pain, Negative for nausea and vomiting, 14:49 Neuro: Positive for weakness, Negative for altered mental status, Exam: 14:49 Constitutional: This is a well developed, well nourished patient who is awake, alert, rt and in no acute distress. Head/Face: Normocephalic, atraumatic. Chest/axilla: Normal chest wall appearance and motion. Nontender with no deformity. No lesions are appreciated. Cardiovascular: Regular rate and rhythm with a normal S1 and S2. No gallops, murmurs, or rubs. Normal PMI, no JVD. No pulse deficits. Respiratory: Lungs have equal breath sounds bilaterally, clear to auscultation and percussion. No rales, rhonchi or wheezes noted. No increased work of breathing, no retractions or nasal flaring. Skin: Warm, dry with normal turgor. Normal color with no rashes, no lesions, and no evidence of cellulitis. Neuro: Awake and alert, GCS 15, oriented to person, place, time, and situation. Cranial nerves II-XII grossly intact. Motor strength 5/5 in all extremities. Sensory grossly intact. Cerebellar exam normal. Normal gait. Psych: Awake, alert, with orientation to person, place and time. Behavior, mood, and affect are within normal limits. 14:49 Abdomen/GI: Mild tenderness to the lower quadrants without rebound, guarding, distention, 14:49 Musculoskeletal/extremity: Bilateral tpbwi-lao-wmrs amputations. 15:25 ECG was reviewed by the Attending Physician. rt Vital Signs: 14:45 BP 98 / 59; Pulse 63; Resp 16; Temp 97.6; Pulse Ox 98% on R/A; Weight 86.18 kg; Pain iw 8/10; 14:45 Pain Scale: Adult iw MDM: 14:44 Patient medically screened. rt 17:33 Differential diagnosis: Constipation, bowel obstruction, appendicitis, pneumonia, rt pneumothorax, COPD. Data reviewed: vital signs, nurses notes. Consideration of Admission/Observation Escalation of care including admission/observation considered. I considered the following discharge prescriptions or medication management in the emergency department Medications were administered in the Emergency Department. See MAR. Independent interpretation of the following test(s) in the Emergency Department CT Scan: My interpretation is No bowel obstruction seen on interpretation of the x-ray images. Care significantly affected by the following chronic conditions: Diabetes, Hypertension. Counseling: I had a detailed discussion with the patient and/or guardian regarding the historical points, exam findings, and any diagnostic results supporting the discharge/admit diagnosis, lab results, radiology results, the need for outpatient follow up. Response to treatment: the patient's symptoms have resolved after treatment. ED course: Patient without hypoxia in the emergency department, chest x-ray is clear, believe florez finding for hypoxia, does not require further treatment at this time. Patient to report generalized weakness, has completely resolved with some gentle hydration in the ED. Patient had a large bowel movement while in the emergency department with resolution of the abdominal pain. Labs are at baseline, CT scan shows constipation without obstruction. Is stable for outpatient care, turn precautions discussed.. 01/25 14:48 Order name: CBC with Diff; Complete Time: 16:08 rt 01/25 14:48 Order name: CMP; Complete Time: 16:08 rt 01/25 14:48 Order name: Lipase; Complete Time: 16:08 rt 01/25 14:48 Order name: Urinalysis w/ reflexes; Complete Time: 17:23 rt 01/25 14:48 Order name: Troponin High Sensitivity; Complete Time: 16:08 rt 01/25 14:48 Order name: BNP; Complete Time: 16:08 rt 01/25 14:48 Order name: CT Abd/Pelvis - IV Contrast Only; Complete Time: 16:17 rt 01/25 14:48 Order name: Chest Single View XRAY; Complete Time: 16:08 rt 01/25 14:48 Order name: EKG; Complete Time: 14:48 rt 01/25 14:48 Order name: IV Saline Lock; Complete Time: 15:10 rt 01/25 14:48 Order name: Labs collected and sent; Complete Time: 15:10 rt 01/25 14:48 Order name: EKG - Nurse/Tech; Complete Time: 15:23 rt EC:25 Rate is 65 beats/min. Rhythm is regular, Normal Sinus Rhythm with No ectopy. QRS Hurst rt is Normal. VA interval is normal. QRS interval is normal. QT interval is normal. No Q waves. Clinical impression: NSR w/ Non-specific ST/T Changes. Administered Medications: 15:23 Drug: NS 0.9% IV 500 ml IV at 1 bolus Per protocol; 1000 mL bolus Route: IV; Rate: 1 iw bolus; Site: right antecubital; 18:11 Not Given (Other Intervention Used): grams 45 ml PO once iw Disposition Summary: 01/25/23 17:26 Discharge Ordered Notes: Location: Home rt Problem: new rt Symptoms: have improved rt Condition: Stable rt Diagnosis - Constipation, unspecified rt Followup: rt - With: Private Physician - When: 5 - 6 days - Reason: Discharge Instructions: - Discharge Summary Sheet rt - Constipation, Adult rt Forms: - Work release form eb - Medication Reconciliation Form rt - Thank You Letter rt - Antibiotic Education rt - Prescription Opioid Use rt - Patient Portal Instructions rt - Leadership Thank You Letter rt Prescriptions: - Miralax 17 gram/dose Oral powder - take 17 gram ORAL route daily as needed for constipation; 85 gram; Refills: 0, rt Product Selection Permitted Signatures: Dispatcher [employer] Analia Hines, Ming Jean RN, MD MD rt
--- NOTE | 2023-01-25 17:27 | ER ---
Nurse's Notes [facility] Name: Shviam Block Age: 57 yrs Sex: Male : 1965 Arrival Date: 01/25/2023 Time: 14:40 Bed 7 Private MD: Diagnosis: Constipation, unspecified Presentation: 01/25 14:44 Chief complaint: EMS states: lower abd pain and general weakness X 3 days. Coronavirus iw screen: At this time, the client does not indicate any symptoms associated with coronavirus-19. Ebola Screen: Patient negative for fever greater than or equal to 101.5 degrees Fahrenheit, and additional compatible Ebola Virus Disease symptoms Patient denies exposure to infectious person. Patient denies travel to an Ebola-affected area in the 21 days before illness onset. No symptoms or risks identified at this time. Initial Sepsis Screen: Does the patient meet any 2 criteria? No. Patient's initial sepsis screen is negative. Does the patient have a suspected source of infection? No. Patient's initial sepsis screen is negative. Risk Assessment: Do you want to hurt yourself or someone else? Patient reports no desire to harm self or others. Onset of symptoms was January 22, 2023. 14:44 Method Of Arrival: EMS: [facility] iw 14:44 Acuity: TERRANCE 3 iw Historical: - Allergies: 14:45 Fish Containing Products; iw 14:45 SEAFOOD; iw - PMHx: 14:45 Atrial fibrillation; Myocardial infarction; Hypertensive disorder; diabetes mellitus; iw - PSHx: 14:45 bilateral BKA; iw Screenin:10 [facility] ED Fall Risk Assessment (Adult) Score/Fall Risk Level. Abuse screen: Denies iw threats or abuse. Denies injuries from another. Nutritional screening: No deficits noted. Tuberculosis screening: No symptoms or risk factors identified. Assessment: 15:10 General: Appears in no apparent distress. Behavior is calm, cooperative. Pain: iw Complains of pain in right lower quadrant and left lower quadrant Pain radiates to right low back. Neuro: Level of Consciousness is awake, alert, obeys commands, Oriented to person, place, time, situation, Moves all extremities. Cardiovascular: Patient's skin is warm and dry. Respiratory: Respiratory effort is even, unlabored, Respiratory pattern is regular, symmetrical. GI: Bowel sounds present X 4 quads. Abd is soft X 4 quads Reports upper abdominal pain. Derm: Skin is intact, is healthy with good turgor. 17:05 Reassessment: pt with moderate amount of loose stool in bed juan, pt cleaned , brief iw applied. Vital Signs: 14:45 BP 98 / 59; Pulse 63; Resp 16; Temp 97.6; Pulse Ox 98% on R/A; Weight 86.18 kg; Pain iw 8/10; 14:45 Pain Scale: Adult iw ED Course: 14:42 Patient arrived in ED. iw 14:44 Ming White MD is Attending Physician. rt 14:44 Triage completed. iw 14:45 Analia Paez RN is Primary Nurse. iw 14:47 Arm band placed on. iw 15:10 Initial lab(s) drawn, by me, sent to lab. Inserted saline lock: 22 gauge in right iw antecubital area, using aseptic technique. Blood collected. 15:11 Patient has correct armband on for positive identification. Provided Education on: IV iw insertion . 15:23 Chest Single View XRAY In Process Unspecified. EDMS 16:04 CT Abd/Pelvis - IV Contrast Only In Process Unspecified. EDMS Administered Medications: 15:23 Drug: NS 0.9% IV 500 ml IV at 1 bolus Per protocol; 1000 mL bolus Route: IV; Rate: 1 iw bolus; Site: right antecubital; 18:11 Not Given (Other Intervention Used): dkxozwdrk91 grams 45 ml PO once iw Medication: 15:10 VIS not applicable for this client. iw Outcome: 17:26 Discharge ordered by . rt 18:06 Patient left the ED. iw Signatures: Dispatcher [employer] EDMS Analia Paez, RN RN iw Ming White MD MD rt
--- NOTE | 2023-01-27 12:19 | EKG ---
Test Date: 2023-01-25 Test Time: 15:20:47 Hair Specialist: SURESH MEASUREMENT RESULTS: Intervals: Rate: 65 UT: 166 QRSD: 116 QT: 420 QTc: 436 Cameron: P: 29 UT: 166 QRS: 266 T: 8 INTERPRETIVE STATEMENTS: Normal sinus rhythm Inferior infarct, age undetermined Anterolateral infarct, age undetermined Abnormal ECG Compared to ECG 12/10/2022 23:46:52 Right bundle-branch block no longer present Myocardial infarct finding still present Electronically Signed On 01-27-23 12:15:49 CDT by Natanael Watson
== END 2023-01-25 18:06 | disposition home or self-care (01) ==
LOC: ER 14:40
DX: K59.00 Constipation, unspecified (principal); I10 Essential (primary) hypertension; E11.9 Type 2 diabetes mellitus without complications; I48.91 Unspecified atrial fibrillation; I25.2 Old myocardial infarction; Z91.013 Allergy to seafood
CPT/HCPCS: 93005; 85025; 81001; 36415; 84484; 83690; 80053; 83880; 74177; 71045; 99284; Q9967; J7040

== ENCOUNTER 2023-01-29 20:47 | Emergency (ER) | payer OTHER ==
--- OUTSIDE RECORDS SUMMARY | 2023-01-29 21:12 | XMS REPORT | Continuity of Care Document ---
:1965 Author Organization [facility] t Address [address] [facility] [place] [address] Care Team Providers Name Role Phone Sharpless Primary Care Physician Jerry Roa Attending Clinician Unavailable NATHALY ZEPEDA Attending Clinician Unavailable GERMAN MCGEE Attending Clinician Unavailable GERMAN MCGEE Attending Clinician Unavailable ALEXANDRA LOPEZ Attending Clinician Unavailable Alexandra Higgins Attending Clinician BLANCA VALDEZ Attending Clinician Unavailable Doctor Unassigned, [place] Attending Clinician Unavailable JENI FARNSWORTH Attending Clinician Unavailable 2, [facility] Attending Clinician Unavailable ALEXANDRA FINNEGAN Attending Clinician Unavailable Blanca Elise Attending Clinician LEIGHTON MINAYA Attending Clinician Unavailable Abena VALENTE, Ramón Attending Clinician RAMÓN KRAFT Attending [...] Attending Clinician Kenneth Farr DO Attending Clinician [phone] Noman Brewer DO Attending Clinician Harinder BAILEY, Ron Ding Attending Clinician Alyse Bates MA Attending Clinician Unavailable Swapna BAILEY, Beulah Attending Clinician Mari Gamboa CRNA Attending Clinician Cheri Carroll Attending Clinician Unavailable Lozano MD, Fortino Feldman Attending Clinician [phone] Ernesto BAILEY, Hector Vidal Attending Clinician Pravin THOMAS, Fahad Schwartz Attending Clinician [phone] Shaikh LEO, Uriel Attending Clinician Ricky THOMAS, July Attending Clinician Arnulfo BAILEY, Laxmi Carbajal Attending Clinician Jeff Short MD Attending Clinician Pravin THOMAS, Chacha Carbajal Attending Clinician [phone] Renan BAILEY, Mary Estevez Attending Clinician Ab Lucas Attending Clinician Unavailable Solomon BAILEY, Wilberto Schwartz Attending Clinician Jarrett BAILEY, Ale Meeks Attending Clinician René De Jesus DO Attending Clinician [phone] Thong Cartagena MD Attending Clinician Fahad Anna MD Attending Clinician Margo Ingram Attending Clinician Unavailable KARINA_PRIYANKA_Yanick_Julissa Attending Clinician Unavailable Brennan Dupont Attending Clinician Unavailable RUDY EMERSON Attending Clinician Unavailable Vielka Arzate [facility] Attending Clinician Unavailable Osito BAILEY, Shazia Marshall Attending Clinician [phone] JAMIN LOPEZ Attending Clinician Unavailable Donaldo Martinez MD Attending Clinician [phone] Physician, No Primary or Family Admitting Clinician UnavailTu Chilel Admitting Clinician Unavailable LES ELLSWORTH Admitting Clinician Unavailable BRENNAN LOVE Admitting Clinician Unavailable ADOLFO HURLEY Admitting Clinician Unavailable FRANCESCA STEVENS Admitting Clinician Unavailable NOMAN BREWER Admitting Clinician Unavailable HECTRO OROZCO Admitting Clinician Unavailable JEFF SHORT Admitting Clinician Unavailable Ab Lucas Admitting Clinician Unavailable ALE FARIAS Admitting Clinician Unavailable KARINA_HGMDA_Yanick_J Admitting Clinician Unavailable Sahil House MA Unavailable Unavailable Jose RETAIL PRODUCT DEMO SPECIALIST, Branch Unavailable Payers Payer Name Policy Type Policy Number Effective Date Expiration Date S cedric [facility] C [id number] 2021 Medicare WellMed 00:00:00 [facility] D [id number] 2021 Medicare WellMed 00:00:00 [facility] C [id number] 2021 2021 Medicare WellMed 00:00:00 00:00:00 ALL SAVERS [id number] 2022 00:00:00 WELLMED/UHC DUAL [id number] 2022 COMP HMO D SNP 00:00:00 [employer] STAR [id number] 2022 PLUS 00:00:00 WELL[employer] GROUP - [id number] 2021 [facility] 00:00:00 (MEDICARE REPLACEMENT/ADVANT AGE - HMO) GENERIC MEDICARE [id number] 2021 ADVANTAGE 00:00:00 MEDICAID [place] [id number] 2021 00:00:00 MEDICARE PART A & [id number] 2020 2021 B 00:00:00 00:00:00 Problems Condition [...] Added automatic ally from request for surgery [id number] Acute UTI Acute UTI Disease Active Met hodi 12-11 st 00:00: Hospita 00 l Pyelonephr Pyelonephr Disease Active M ethodi itis itis 7 st 00:00: Hospita 00 l Cellulitis Cellulitis Disease Active M ethodi 811 st 00:00: Hospita 00 l DEPRESSION DEPRESSIO Diagnosis Active 2016-03-21 Memoria N Active 12-11 14:23:00 l 12/12/2015 18:30: Larry n MH 00 [facility] Depression Depression 71987-9 Active 2021-06-29 Harsh 2.16.84 screen - screen - 13:29:33 Sahil 0.1 .113 Negative Negative 883.4. 2 (Renamed (Renamed from from Screening Screening for for depression depression ) ) (Z13.31) (V79.0)YUDITH Sprague Hypertensi Hypertensi 39484-9 Active 2021-06-29 Garcia, 2.16.84 on on (I10) 14:40:04 Branch 0.1.11 3 (401.9)Kodi 883.4. 2 lis, RETAIL PRODUCT DEMO SPECIALIST Branch Nicotine Nicotine 48038-2 Active 2021-06-29 House, 2 .16 dependence dependence 13:29:27 Sahil 0.1.113 (F17.200) 883.4.2 (305.1)Melisa mathew MA Sahil Status Status 46588-1 Active 2021-06-29 Garcia, 2.16 .84 post below post below 16:29:18 Branch 0.1.113 knee knee 883.4.2 amputation amputation , right , right (Z89.511) (V49.75)Wi llis, RETAIL PRODUCT DEMO SPECIALIST Branch Type II Type II 38529-1 Active 2021-06-29 Garcia, 2. diabetes diabetes 13:34:22 Branch 0.1. 113 mellitus mellitus 883.4. 2 (E11.9) (250.00)Wi llis, RETAIL PRODUCT DEMO SPECIALIST Branch Allergies, Adverse Reactions, Alerts Allergy [...] Propensi Active Swelling Method i ty to 1-24 st adverse 00:00: Hospita reaction 00 l s No Known DA Active U [facility] Allergie 12-31 [facility] 00:00: e 00 Medical [place] Shellfis Propensi Active Swelling All Meth greer h ty to 10-[address] Containi adverse 00:00: per pt Hospita ng reaction 00 l Products s to drug No Known Allergy Active 2.16.84 Allergie 311 0.1.113 s 00:00: 883.4.2 00 No Known DA Active U [facility] Allergie 10-07 [facility] s 00:00: d 00 Medical [place] No Known DA Active U [facility] Allergie 05-11 [facility] 00:00: e 00 Medical Center NO KNOWN Drug Active Univers ALLERGIE Class ity of S [place] [facility] Food Food Active [facility] [employer] [employer] [facility] [place] NO KNOWN Allergy Active [facility] Family History Family Member Diagnosis Comments Start Date Stop Date Source Natural father Heart disease [facility] Natural mother Diabetes [facility] Natural mother Heart disease [facility] Social History Social Habit Start Date Stop Date Quantity Comments Source Alcohol Use: Non Drinker / 2.16.840. 1.31151 No Alcohol Use. 3.4.2 Drug Use: No drug use. 2.16.840.1.1 1388 3.4.2 Tobacco use: Current every 1-3ppd 2.16.840. 1.22821 day smoker. depending on 3.4.2 stress per pt History SDOH [facility] Fear History SDOH [facility] Emotional Gender identity [facility] [place] [facility] History of tobacco Passive smoker Un iversity of use [place] [facility] History SDOH University o f Alcohol Std Drinks [place] [facility] History SDOH University o f Alcohol Binge [place] [facility] History SDOH University o f Social Connections [place] [facility] Get Together Branch History SDOH University o f Social Connections [place] [facility] Mormon [facility] History SDOH University o f Social Connections [place] [facility] Membership [facility] History SDOH University o f Social Connections [place] [facility] Meetings [facility] Sexual orientation [facility] Exposure to 2022-09-02 2022-09-12 Not sure University of SARS-CoV-2 (event) 00:00:00 21:28:00 [place] [facility] Tobacco use and 2022-08-05 2022-08-05 User of Universit y of exposure 00:00:00 00:00:00 smokeless [place] [facility] tobacco Branch History SDOH 2022-07-29 2022-07-29 1 University o f Alcohol Frequency 00:00:00 00:00:00 [place] [facility] edical [facility] History SDOH 2022-07-29 2022-07-29 5 University o f Social Connections 00:00:00 00:00:00 [place] [facility] Phone [facility] History SDOH 2022-07-29 2022-07-29 5 University o f Social Connections 00:00:00 00:00:00 [place] [facility] Living [facility] History SDOH 2022-07-29 2022-07-29 [...] 1 Univers ity of Scarcity 00:00:00 00:00:00 [place] [facility] History SDOH 2022-07-29 2022-07-29 2 [...] University o f Housing Homeless 00:00:00 00:00:00 [facility] dical Last Year Branch History of Social 2022-06-30 2022-06-[address] function 00:00:00 00:00:00 Hospital Cigarette 2022-06-25 2022-06-25 [facility] pack-years 00:00:00 00:00:00 [...] At [birth year] MARIELA Gomezs 00:00:00 00:00:00 Medical Center Smoking Status Start Date Stop Date Source Tobacco smoking consumption [facility] Medical unknown Branch Smokes tobacco daily 2022-08-05 00:00:00 [facility] Medications Ordered Filled Start Stop Current Ordering Indication Dosage Frequency Signature Comments Components Source Medication Medication Date Date Medication? Clinician (SIG) Name Name insulin Yes [id number] 14U inject 14 Univers glargine 8-28 Units ity of (SEMGLEE 00:00: under the [employer] s U-100 00 skin in Medical INSULIN) the Branch 100 unit/mL morning. injection albuterol Yes [id number] 2{puff} Inhale 2 Univers 90 8-28 Puffs ity of mcg/actuati 00:00: every 6 Suhas as on inhaler 00 (six) Medical hours as Branch needed for Wheezing or Shortness of Breath. fluticasone Yes [id number] 1{puff} Inhale 1 Univers -umeclidin- 8-28 Puff in ity o f vilanter 00:00: the [place] (TRELEGY 00 morning. Medical ELLIPTA) Branch 100-62.5-25 mcg DsDv Nebulizer Yes [id number] Use as Un anil Accessories 8-28 directed ity of Kit 00:00: [place] 00 Medical Branch albuterol Yes [id number] 2.5mg Inhale 0.5 Univers 2.5 mg/0.5 8-28 mL every 6 ity of mL 00:00: (six) [place] nebulizer 00 hours as Medica l solution needed for Branc h Wheezing. insulin Yes [id number] 14U inject 14 Univers glargine 8-28 Units ity of (SEMGLEE 00:00: under the [employer] s U-100 00 skin in Medical INSULIN) the Branch 100 unit/mL morning. injection albuterol Yes [id number] 2{puff} Inhale 2 Univers 90 8-28 Puffs ity of mcg/actuati 00:00: every 6 [place] as on inhaler 00 (six) Medical hours as Branch needed for Wheezing or Shortness of Breath. fluticasone Yes [id number] 1{puff} Inhale 1 Univers -umeclidin- 8-28 Puff in ity o f vilanter 00:00: the [place] (GY morning. Medical ELLIPTA) Branch 100-62.5-25 mcg DsDv Nebulizer 0 Yes [id number] Use as Un anil Accessories 8-28 directed ity of Kit 00:00: [place] [facility] albuterol 0 Yes [id number] 2.5mg Inhale 0.5 Univers 2.5 mg/0.5 8-28 mL every 6 ity of mL 00:00: (six) [place] nebulizer 00 hours as Medica l solution needed for Branc h Wheezing. insulin Yes [id number] 14U inject 14 Univers glargine 8-28 Units ity of (SEMGLEE [place] U-[place] skin in Medical INSULIN) the Branch 100 unit/mL morning. injection albuterol Yes [id number] 2{puff} Inhale 2 Univers 90 8-28 Puffs ity of mcg/actuati 00:00: every 6 [place] as on inhaler 00 (six) Medical hours as Branch needed for Wheezing or Shortness of Breath. fluticasone 0 Yes [id number] 1{puff} Inhale 1 Univers -umeclidin- 8-28 Puff in ity o f vilanter 00:00: the [place] (LEGY . Medical ELLIPTA) Branch 100-62.5-25 mcg DsDv Nebulizer 0 Yes [id number] Use as Un anil Accessories 8-28 directed ity of Kit 00:00: [place] [facility] albuterol 0 Yes [id number] 2.5mg Inhale 0.5 Univers 2.5 mg/0.5 8-28 mL every 6 ity of mL 00:00: (six) [place] nebulizer 00 hours as Medica l solution needed for Branc h Wheezing. insulin Yes [id number] 14U inject 14 Univers glargine 8-28 Units ity of (SEMGLEE 00:00: [place] U-[place] skin in Medical INSULIN) the Branch 100 unit/mL morning. injection albuterol 2022-0 Yes [id number] 2{puff} Inhale 2 Univers 90 8-28 Puffs ity of mcg/actuati 00:00: every 6 [place] as on inhaler 00 (six) Medical hours as Branch needed for Wheezing or Shortness of Breath. fluticasone 2022-0 Yes [id number] 1{puff} Inhale 1 Univers -umeclidin- 8-28 Puff in ity o f vilanter 00:00: the [place] (. Medical ELLIPTA) Branch 100-62.5-25 mcg DsDv Nebulizer 2022-0 Yes [id number] Use as Un anil Accessories 8-28 directed ity of Kit 00:00: [place] 00 Medical Branch albuterol 2022-0 Yes [id number] 2.5mg Inhale 0.5 Univers 2.5 mg/0.5 8-28 mL every 6 ity of mL 00:00: (six) [place] nebulizer 00 hours as Medica l solution needed for Branc h Wheezing. insulin Yes [id number] 14U inject 14 Univers glargine 8-28 Units ity of (SEMGLEE [place]:00: [place] U-[place] skin in Medical INSULIN) the Branch 100 unit/mL morning. injection albuterol 2022-0 Yes [id number] 2{puff} Inhale 2 Univers 90 8-28 Puffs ity of mcg/actuati 00:00: every 6 [place] as on inhaler 00 (six) Medical hours as Branch needed for Wheezing or Shortness of Breath. fluticasone 2022-0 Yes [id number] 1{puff} Inhale 1 Univers -umeclidin- 8-28 Puff in ity o f vilanter 00:00: the [place] (. Medical ELLIPTA) Branch 100-62.5-25 mcg DsDv Nebulizer 2022-0 Yes [id number] Use as Un anil Accessories 8-28 directed ity of Kit 00:00: [place] [facility] albuterol Yes [id number] 2.5mg Inhale 0.5 Univers 2.5 mg/0.5 8-28 mL every 6 ity of mL 00:00: (six) [place] nebulizer 00 hours as Medica l solution needed for Branc h Wheezing. insulin Yes [id number] 14U inject 14 Univers glargine 8-28 Units ity of (SEMGLEE 00:00: [place] U-[place] skin in Medical INSULIN) the Branch 100 unit/mL morning. injection albuterol Yes [id number] 2{puff} Inhale 2 Univers 90 8-28 Puffs ity of mcg/actuati 00:00: every 6 [place] as on inhaler 00 (six) Medical hours as Branch needed for Wheezing or Shortness of Breath. fluticasone Yes [id number] 1{puff} Inhale 1 Univers -umeclidin- 8-28 Puff in ity o f vilanter 00:00: the [place] (TRELEGY 00 morning. Medical ELLIPTA) Branch 100-62.5-25 mcg DsDv Nebulizer Yes [id number] Use as Un anil Accessories 8-28 directed ity of Kit 00:00: [place] [facility] albuterol Yes [id number] 2.5mg Inhale 0.5 Univers 2.5 mg/0.5 8-28 mL every 6 ity of mL 00:00: (six) [place] nebulizer 00 hours as Medica l solution needed for Branc h Wheezing. apixaban 5 Yes 5mg Take 1 Unive rs mg tablet 8-18 tablet by ity o f 00:00: mouth in [place] 00 the Medical morning Branch and 1 tablet in the evening. Indication s: ATRIAL FIBRILLATI ON atorvastati Yes [id number] 40mg Take 1 Univers n 40 mg 8-18 tablet by ity of tablet 00:00: mouth at [place] 00 bedtime. Medical Branch Bifidobacte Yes [id number] 4mg Take 1 Univers rium 8-18 capsule by ity of Infantis 00:00: mouth in [place] (ALIGN) 4 00 the Medical mg capsule morning. Branc h gabapentin Yes [id number] 400mg Take 1 Univers 400 mg 8-18 capsule by ity of capsule 00:00: mouth in [place] 00 the morning Branch and 1 capsule at noon and 1 capsule in the evening. lisinopriL Yes [id number] 2.5mg Take 1 Univers 2.5 mg 8-18 tablet by ity of tablet 00:00: mouth in [place] 00 the morning. Branch metFORMIN Yes [id number] 500mg Take 1 Univers 500 mg 8-18 tablet by ity of tablet 00:00: mouth in [place] 00 the morning Branch and 1 tablet in the evening. Take with meals. metoprolol Yes [id number] 25mg Take 1 U nivers tartrate 25 8-18 tablet by ity of mg tablet 00:00: mouth in [facility] 00 the morning Branch and 1 tablet in the evening. SERTraline Yes [id number] 25mg Take 1 Univers 25 mg 8-18 tablet by ity of tablet 00:00: mouth in [place] 00 the morning. Branch amiodarone Yes [id number] 200mg Take 1 Univers 200 mg 8-18 tablet by ity of tablet 00:00: mouth in [place] 00 the morning. Branch insulin Yes [id number] 14U inject 14 Univers glargine 8-18 Units ity of (SEMGLEE 00:00: under the [facility] s U-100 00 skin in Medical INSULIN) the Branch 100 unit/mL morning. injection apixaban 5 Yes 5mg Take 1 Unive rs mg tablet 8-18 tablet by ity o f 00:00: mouth in [place] [address] the morning Branch and 1 tablet in the evening. Indication s: ATRIAL FIBRILLATI ON atorvastati Yes [id number] 40mg Take 1 Univers n 40 mg 8-18 tablet by ity of tablet 00:00: mouth at [place] [address] bedtime. Medical Branch Bifidobacte Yes [id number] 4mg Take 1 Univers rium 8-18 capsule by ity of Infantis 00:00: mouth in [place] (ALIGN) 4 00 the Medical mg capsule morning. Branc h gabapentin Yes [id number] 400mg Take 1 Univers 400 mg 8-18 capsule by ity of capsule 00:00: mouth in [place] 00 the Medical morning Branch and 1 capsule at noon and 1 capsule in the evening. lisinopriL Yes [id number] 2.5mg Take 1 Univers 2.5 mg 8-18 tablet by ity of tablet 00:00: mouth in [place] 00 the morning. Branch metFORMIN 0 Yes [id number] 500mg Take 1 Univers 500 mg 8-18 tablet by ity of tablet 00:00: mouth in [place] 00 the Medical morning Branch and 1 tablet in the evening. Take with meals. metoprolol 0 Yes [id number] 25mg Take 1 U nivers tartrate 25 8-18 tablet by ity of mg tablet 00:00: mouth in [facility] 00 the Medical morning Branch and 1 tablet in the evening. SERTraline 0 Yes [id number] 25mg Take 1 Univers 25 mg 8-18 tablet by ity of tablet 00:00: mouth in [place] 00 the morning. Branch amiodarone Yes [id number] 200mg Take 1 Univers 200 mg 8-18 tablet by ity of tablet 00:00: mouth in [place] 00 the morning. Branch insulin Yes [id number] 14U inject 14 Univers glargine 8-18 Units ity of (SEMGLEE 00:00: under the [facility] s U-100 00 skin in Medical INSULIN) the Branch 100 unit/mL morning. injection apixaban 5 Yes 5mg Take 1 Unive rs mg tablet 8-18 tablet by ity o f 00:00: mouth in [place] 00 the Medical morning Branch and 1 tablet in the evening. Indication s: ATRIAL FIBRILLATI ON atorvastati 0 Yes [id number] 40mg Take 1 Univers n 40 mg 8-18 tablet by ity of tablet 00:00: mouth at [place] 00 bedtime. Medical Branch Bifidobacte 0 Yes [id number] 4mg Take 1 Univers rium 8-18 capsule by ity of Infantis 00:00: mouth in [place] (ALIGN) 4 00 the Medical mg capsule morning. Branc h gabapentin 0 Yes [id number] 400mg Take 1 Univers 400 mg 8-18 capsule by ity of capsule 00:00: mouth in [place] 00 the morning Branch and 1 capsule at noon and 1 capsule in the evening. lisinopriL 2022-0 Yes [id number] 2.5mg Take 1 Univers 2.5 mg 8-18 tablet by ity of tablet 00:00: mouth in [place] the morning. Branch metFORMIN 2022-0 Yes [id number] 500mg Take 1 Univers 500 mg 8-18 tablet by ity of tablet 00:00: mouth in [place] the morning Branch and 1 tablet in the evening. Take with meals. metoprolol 2022-0 Yes [id number] 25mg Take 1 U nivers tartrate 25 8-18 tablet by ity of mg tablet 00:00: mouth in [facility] the morning Branch and 1 tablet in the evening. SERTraline 2022-0 Yes [id number] 25mg Take 1 Univers 25 mg 8-18 tablet by ity of tablet 00:00: mouth in [place] the morning. Branch amiodarone 2022-0 Yes [id number] 200mg Take 1 Univers 200 mg 8-18 tablet by ity of tablet 00:00: mouth in [place] the morning. Branch apixaban 5 2022-0 Yes 5mg Take 1 Unive rs mg tablet 8-18 tablet by ity o f 00:00: mouth in [place] the morning Branch and 1 tablet in the evening. Indication s: ATRIAL FIBRILLATI ON atorvastati 2022-0 Yes [id number] 40mg Take 1 Univers n 40 mg 8-18 tablet by ity of tablet 00:00: mouth at [place] [address] bedtime. Medical Branch Bifidobacte 2022-0 Yes [id number] 4mg Take 1 Univers rium 8-18 capsule by ity of Infantis 00:00: mouth in [place] (ALIGN) 4 00 the Medical mg capsule morning. Bran h gabapentin 2022-0 Yes [id number] 400mg Take 1 Univers 400 mg 8-18 capsule by ity of capsule 00:00: mouth in [place] 00 the morning Branch and 1 capsule at noon and 1 capsule in the evening. lisinopriL 2022-0 Yes [id number] 2.5mg Take 1 Univers 2.5 mg 8-18 tablet by ity of tablet 00:00: mouth in [place] 00 the morning. Branch metFORMIN 2022-0 Yes [id number] 500mg Take 1 Univers 500 mg 8-18 tablet by ity of tablet 00:00: mouth in [place] 00 the Medical morning Branch and 1 tablet in the evening. Take with meals. metoprolol 2022-0 Yes [id number] 25mg Take 1 U nivers tartrate 25 8-18 tablet by ity of mg tablet 00:00: mouth in [facility] 00 the Medical morning Branch and 1 tablet in the evening. SERTraline 2022-0 Yes [id number] 25mg Take 1 Univers 25 mg 8-18 tablet by ity of tablet 00:00: mouth in [place] 00 the morning. Branch amiodarone 2022-0 Yes [id number] 200mg Take 1 Univers 200 mg 8-18 tablet by ity of tablet 00:00: mouth in [place] 00 the morning. Branch apixaban 5 2022-0 Yes 5mg Take 1 Unive rs mg tablet 8-18 tablet by ity o f 00:00: mouth in [place] 00 the Medical morning Branch and 1 tablet in the evening. Indication s: ATRIAL FIBRILLATI ON atorvastati 2022-0 Yes [id number] 40mg Take 1 Univers n 40 mg 8-18 tablet by ity of tablet 00:00: mouth at [place] [address] bedtime. Medical Branch Bifidobacte 2022-0 Yes [id number] 4mg Take 1 Univers rium 8-18 capsule by ity of Infantis 00:00: mouth in [place] (ALIGN) 4 00 the Medical mg capsule morning. Bran h gabapentin 2022-0 Yes [id number] 400mg Take 1 Univers 400 mg 8-18 capsule by ity of capsule 00:00: mouth in [place] 00 the Medical morning Branch and 1 capsule at noon and 1 capsule in the evening. lisinopriL 2022-0 Yes [id number] 2.5mg Take 1 Univers 2.5 mg 8-18 tablet by ity of tablet 00:00: mouth in [place] 00 the morning. Branch metFORMIN 2022-0 Yes [id number] 500mg Take 1 Univers 500 mg 8-18 tablet by ity of tablet 00:00: mouth in [place] 00 the Medical morning Branch and 1 tablet in the evening. Take with meals. metoprolol 2022-0 Yes [id number] 25mg Take 1 U nivers tartrate 25 8-18 tablet by ity of mg tablet 00:00: mouth in [facility] s 00 the Medical morning Branch and 1 tablet in the evening. SERTraline 2022-0 Yes [id number] 25mg Take 1 Univers 25 mg 8-18 tablet by ity of tablet 00:00: mouth in [place] 00 the Medical morning. Branch amiodarone 2022-0 Yes [id number] 200mg Take 1 Univers 200 mg 8-18 tablet by ity of tablet 00:00: mouth in [place] 00 the Medical morning. Branch apixaban 5 2022-0 Yes 5mg Take 1 Unive rs mg tablet 8-18 tablet by ity o f 00:00: mouth in [place] 00 the Medical morning Branch and 1 tablet in the evening. Indication s: ATRIAL FIBRILLATI ON atorvastati 2022-0 Yes [id number] 40mg Take 1 Univers n 40 mg 8-18 tablet by ity of tablet 00:00: mouth at [place] [address] bedtime. Medical Branch Bifidobacte 2022-0 Yes [id number] 4mg Take 1 Univers rium 8-18 capsule by ity of Infantis 00:00: mouth in [place] (ALIGN) 4 00 the Medical mg capsule morning. [facility] h gabapentin 2022-0 Yes [id number] 400mg Take 1 Univers 400 mg 8-18 capsule by ity of capsule 00:00: mouth in [place] 00 the Medical morning Branch and 1 capsule at noon and 1 capsule in the evening. lisinopriL 2022-0 Yes [id number] 2.5mg Take 1 Univers 2.5 mg 8-18 tablet by ity of tablet 00:00: mouth in [place] 00 the Medical morning. Branch metFORMIN 2022-0 Yes [id number] 500mg Take 1 Univers 500 mg 8-18 tablet by ity of tablet 00:00: mouth in [place] 00 the Medical morning Branch and 1 tablet in the evening. Take with meals. metoprolol 2022-0 Yes [id number] 25mg Take 1 U nivers tartrate 25 8-18 tablet by ity of mg tablet 00:00: mouth in [facility] s 00 the Medical morning Branch and 1 tablet in the evening. SERTraline 2022-0 Yes [id number] 25mg Take 1 Univers 25 mg 8-18 tablet by ity of tablet 00:00: mouth in [place] 00 the Medical morning. Branch amiodarone 2022-0 Yes [id number] 200mg Take 1 Univers 200 mg 8-18 tablet by ity of tablet 00:00: mouth in [place] 00 the Medical morning. Branch apixaban 5 0 Yes 5mg Take 1 Unive rs mg tablet 8-18 tablet by ity o f 00:00: mouth in [place] the Medical morning Branch and 1 tablet in the evening. Indication s: ATRIAL FIBRILLATI ON atorvastati 0 Yes [id number] 40mg Take 1 Univers n 40 mg 8-18 tablet by ity of tablet 00:00: mouth at [place] 00 bedtime. Medical Branch Bifidobacte 0 Yes [id number] 4mg Take 1 Univers rium 8-18 capsule by ity of Infantis 00:00: mouth in [place] (ALIGN) 4 00 the Medical mg capsule morning. Bran h gabapentin 0 Yes [id number] 400mg Take 1 Univers 400 mg 8-18 capsule by ity of capsule 00:00: mouth in [place] 00 the morning Branch and 1 capsule at noon and 1 capsule in the evening. lisinopriL 0 Yes [id number] 2.5mg Take 1 Univers 2.5 mg 8-18 tablet by ity of tablet 00:00: mouth in [place] the morning. Branch metFORMIN 0 Yes [id number] 500mg Take 1 [facility] 500 mg 8-18 tablet by ity of tablet 00:00: mouth in [place] the Medical morning Branch and 1 tablet in the evening. Take with meals. metoprolol 2022-0 Yes [id number] 25mg Take 1 U nivers tartrate 25 8-18 tablet by ity of mg tablet 00:00: mouth in [facility] 00 the Medical morning Branch and 1 tablet in the evening. SERTraline 0 Yes [id number] 25mg Take 1 [facility] 25 mg 8-18 tablet by ity of tablet 00:00: mouth in [place] 00 the morning. Branch amiodarone 0 Yes [id number] 200mg Take 1 [facility] 200 mg 8-18 tablet by ity of tablet 00:00: mouth in [place] 00 the Medical morning. Branch apixaban 5 0 Yes 5mg Take 1 Unive rs mg tablet 8-18 tablet by ity o f 00:00: mouth in [place] the Medical morning Branch and 1 tablet in the evening. Indication s: ATRIAL FIBRILLATI ON atorvastati 0 Yes [id number] 40mg Take 1 [facility] n 40 mg 8-18 tablet by ity of tablet 00:00: mouth at [place] 00 bedtime. Medical Branch Bifidobacte 2022-0 Yes [id number] 4mg Take 1 [facility] rium 8-18 capsule by ity of Infantis 00:00: mouth in [place] (ALIGN) 4 00 the Medical mg capsule morning. Bran h gabapentin 0 Yes [id number] 400mg Take 1 [facility] 400 mg 8-18 capsule by ity of capsule 00:00: mouth in [place] 00 the Medical morning Branch and 1 capsule at noon and 1 capsule in the evening. lisinopriL Yes [id number] 2.5mg Take 1 [facility] 2.5 mg 8-18 tablet by ity of tablet 00:00: mouth in [place] 00 the Medical morning. Branch metFORMIN 2022-0 Yes [id number] 500mg Take 1 [facility] 500 mg 8-18 tablet by ity of tablet 00:00: mouth in [place] 00 the Medical morning Branch and 1 tablet in the evening. Take with meals. metoprolol 0 Yes [id number] 25mg Take 1 U nivers tartrate 25 8-18 tablet by ity of mg tablet 00:00: mouth in [facility] s 00 the Medical morning Branch and 1 tablet in the evening. SERTraline Yes [id number] 25mg Take 1 [facility] 25 mg 8-18 tablet by ity of tablet 00:00: mouth in [place] 00 the Medical morning. Branch amiodarone Yes [id number] 200mg Take 1 [facility] 200 mg 8-18 tablet by ity of tablet 00:00: mouth in [place] 00 the Medical morning. Branch insulin 2022- No [id number] 14U inject 14 [facility] glargine 8-18 08-28 Units ity of (SEMGLEE 00:00: 00:00 under the [place] U-100 00 :00 skin in Medical INSULIN) the [place] 100 unit/mL morning. injection insulin 2022- No [id number] 14U inject 14 [facility] glargine 8-18 08-28 Units ity of (SEMGLEE 00:00: 00:00 under the [place] U-100 00 :00 skin in Medical INSULIN) the [place] 100 unit/mL morning. injection SEMGLEE,INS 2022- No 14U inject 14 [facility] ULIN 7-19 07-19 Units ity of GLARGINE-YF 14:32: 00:00 under the [facility], [place] 43 :00 skin in [facility] [place] [facility] morning. As directed SEMGLEE,INS 2022- No 14U inject 14 [facility] ULIN 7-19 07-19 Units ity of GLARGINE-YF 14:32: 00:00 under the [facility], [place] 43 :00 skin in [facility] [place] [facility] morning. As directed [place]GLEE,INS 2022- No 14U inject 14 [facility] ULIN 7-19 07-19 Units ity of GLARGINE-YF 14:32: 00:00 under the [place], [place] 43 :00 skin in [facility] [place] [facility] morning. As directed SEMGLEE,INS 2022- No 14U inject 14 [facility] ULIN 7-19 07-19 Units ity of GLARGINE-YF 14:32: 00:00 under the [facility], [place] 43 :00 skin in [facility] [place] [facility] morning. As directed divalproex Yes [id number] 500mg Take 1 [facility] ER 500 mg 7-19 tablet by ity o f 24 hr 00:00: mouth [place] tablet 00 every 24 Medical (twenty- [place] ur) hours. insulin Yes [id number] 14U inject 14 [facility] glargine 7-19 Units ity of (SEMGLE[place] 00:00: [place] U-[place] skin in Medical INSULIN) the [place] 100 unit/mL morning. injection amiodarone Yes [id number] 200mg Take 1 [facility] 200 mg 7-19 tablet by ity of tablet 00:00: mouth in [place] 00 the Medical morning. Branch apixaban 5 Yes 5mg Take 1 Unive rs mg tablet 7-19 tablet by ity o f 00:00: mouth in [place] [address] the Medical morning Branch and 1 tablet in the evening. Indication s: ATRIAL FIBRILLATI ON metFORMIN Yes [id number] 500mg Take 1 [facility] 500 mg 7-19 tablet by ity of tablet 00:00: mouth in [place] 00 the Medical morning Branch and 1 tablet in the evening. Take with meals. divalproex 2022-0 Yes [id number] 500mg Take 1 [facility] ER 500 mg 7-19 tablet by ity o f 24 hr 00:00: mouth [place] tablet 00 every 24 Medical ([facility] ur) hours. insulin 2022-0 Yes [id number] 14U inject 14 [facility] glargine 7-19 Units ity of (SEMGLEE 00:00: [place] U-[place] 00 skin in Medical INSULIN) the Branch 100 unit/mL morning. injection amiodarone 2022-0 Yes [id number] 200mg Take 1 [facility] 200 mg 7-19 tablet by ity of tablet 00:00: mouth in [place] 00 the Medical morning. Branch apixaban 5 2022-0 Yes 5mg Take 1 Unive rs mg tablet 7-19 tablet by ity o f 00:00: mouth in [place] 00 the Medical morning Branch and 1 tablet in the evening. Indication s: ATRIAL FIBRILLATI ON metFORMIN 2022-0 Yes [id number] 500mg Take 1 [facility] 500 mg 7-19 tablet by ity of tablet 00:00: mouth in [place] the Medical morning Branch and 1 tablet in the evening. Take with meals. divalproex 2022-0 Yes [id number] 500mg Take 1 [facility] ER 500 mg 7-19 tablet by ity o f 24 hr 00:00: mouth [place] tablet 00 every 24 Medical ([facility] ur) hours. insulin 2022-0 Yes [id number] 14U inject 14 [facility] glargine 7-19 Units ity of (SEMGLEE 00:00: under the [facility] U-100 00 skin in Medical INSULIN) the Branch 100 unit/mL morning. injection amiodarone 2022-0 Yes [id number] 200mg Take 1 [facility] 200 mg 7-19 tablet by ity of tablet 00:00: mouth in [place] 00 the Medical morning. Branch apixaban 5 2022-0 Yes 5mg Take 1 Unive rs mg tablet 7-19 tablet by ity o f 00:00: mouth in [place] the Medical morning Branch and 1 tablet in the evening. Indication s: ATRIAL FIBRILLATI ON metFORMIN 2022-0 Yes [id number] 500mg Take 1 [facility] 500 mg 7-19 tablet by ity of tablet 00:00: mouth in [place] 00 the Medical morning Branch and 1 tablet in the evening. Take with meals. divalproex 2023-0 Yes [id number] 500mg Take 1 [facility] ER 500 mg 7-19 tablet by ity o f 24 hr 00:00: mouth [place] tablet 00 every 24 Medical (twenty-fo Branch ur) hours. divalproex 2023-0 Yes [id number] 500mg Take 1 [facility] ER 500 mg 7-19 tablet by ity o f 24 hr 00:00: mouth [place] tablet 00 every 24 Medical (twenty-fo Branch ur) hours. divalproex 2023-0 Yes [id number] 500mg Take 1 [facility] ER 500 mg 7-19 tablet by ity o f 24 hr 00:00: mouth [place] tablet 00 every 24 Medical (twenty-fo Branch ur) hours. divalproex 2023-0 Yes [id number] 500mg Take 1 [facility] ER 500 mg 7-19 tablet by ity o f 24 hr 00:00: mouth [place] tablet 00 every 24 Medical (twenty-fo Branch ur) hours. divalproex 2023-0 Yes [id number] 500mg Take 1 [facility] ER 500 mg 7-19 tablet by ity o f 24 hr 00:00: mouth [place] tablet 00 every 24 Medical (twenty-fo Branch ur) hours. divalproex 2023-0 Yes [id number] 500mg Take 1 [facility] ER 500 mg 7-19 tablet by ity o f 24 hr 00:00: mouth [place] tablet 00 every 24 Medical (twenty-fo Branch ur) hours. divalproex 2023-0 Yes [id number] 500mg Take 1 [facility] ER 500 mg 7-19 tablet by ity o f 24 hr 00:00: mouth [place] tablet 00 every 24 Medical (twenty-fo Branch ur) hours. divalproex 2023-0 Yes [id number] 500mg Take 1 [facility] ER 500 mg 7-19 tablet by ity o f 24 hr 00:00: mouth [place] tablet 00 every 24 Medical (twenty-fo Branch ur) hours. divalproex 2023-0 Yes [id number] 500mg Take 1 [facility] ER 500 mg 7-19 tablet by ity o f 24 hr 00:00: mouth [place] tablet 00 every 24 Medical (twenty-fo Branch ur) hours. divalproex 2023-0 Yes [id number] 500mg Take 1 [facility] ER 500 mg 7-19 tablet by ity o f 24 hr 00:00: mouth [place] tablet 00 every 24 Medical (twenty-fo Branch ur) hours. insulin 2022-2022- No [id number] 14U inject 14 [facility] glargine 7-19 08-18 Units ity of (SEMGLEE 00:00: 00:00 under the [place] U-100 00 :00 skin in Medical INSULIN) the Branch 100 unit/mL morning. injection amiodarone 2022-2022- No [id number] 200mg Take 1 [facility] 200 mg 7-19 08-18 tablet by ity of tablet 00:00: 00:00 mouth in [place] 00 :00 the Medical morning. Branch apixaban 5 2022-2022- No 5mg Take 1 Univ ers mg tablet -07 12-18 tablet by ity of 00:00: 00:00 mouth in [place] 00 :00 the Medical morning Branch and 1 tablet in the evening. Indication s: ATRIAL FIBRILLATI ON metFORMIN 2022-2022- No [id number] 500mg Take 1 [facility] 500 mg 7-19 -18 tablet by ity of tablet 00:00: 00:00 mouth in [place] 00 :00 the Medical morning Branch and 1 tablet in the evening. Take with meals. insulin 2022-2022- No [id number] 14U inject 14 [facility] glargine 7-19 08-18 Units ity of (SEMGLEE 00:00: 00:00 under the [place] U-100 00 :00 skin in Medical INSULIN) the Branch 100 unit/mL morning. injection amiodarone 2022-2022- No [id number] 200mg Take 1 [facility] 200 mg 7-19 [...] s: ATRIAL FIBRILLATI ON metFORMIN 2022-2022- No [id number] 500mg Take 1 [facility] 500 mg 7-19 08-18 tablet by ity of tablet 00:00: 00:00 mouth in [place] 00 :00 the Medical morning Branch and 1 tablet in the evening. Take with meals. DIVALPROEX 2023-0 Yes [id number] TAKE 1 [facility] ER 500 mg 6-30 TABLET BY ity o f 24 hr 00:00: MOUTH [place] tablet 00 EVERY 24 Medical HOURS Branch DIVALPROEX 2023-0 2023- No [id number] TAKE 1 [facility] ER 500 mg 6-30 07-19 TABLET BY ity of 24 hr 00:00: 00:00 MOUTH [place] tablet 00 :00 EVERY 24 Medical HOURS Branch DIVALPROEX 2023-0 2023- No [id number] TAKE 1 [facility] ER 500 mg 6-30 07-19 TABLET BY ity of 24 hr 00:00: 00:00 MOUTH [place] tablet 00 :00 EVERY 24 Medical HOURS Branch DIVALPROEX 2023-0 2023- No [id number] TAKE 1 [facility] ER 500 mg 6-30 07-19 TABLET BY ity of 24 hr 00:00: 00:00 MOUTH [place] tablet 00 :00 EVERY 24 Medical HOURS Branch DIVALPROEX 2023-0 3- No [id number] TAKE 1 [facility] ER 500 mg 6-30 07-19 TABLET BY ity of 24 hr 00:00: 00:00 MOUTH [place] tablet 00 :00 EVERY 24 Medical HOURS Branch blood sugar 2023-0 Yes [id number] Check U nivers diagnostic 6-07 blood ity of strip 00:00: sugar 2 [place] 00 times a Medical day. Branch E11.9. Brand per insurance. Uses ACCU-CHEK machine blood sugar 2023-0 Yes [id number] Check U nivers diagnostic 6-07 blood ity of strip 00:00: sugar 2 [place] 00 times a Medical day. Branch E11.9. Brand per insurance. Uses ACCU-CHEK machine blood sugar 2023-0 Yes [id number] Check U nivers diagnostic 6-07 blood ity of strip 00:00: sugar 2 [place] 00 times a Medical day. Branch E11.9. Brand per insurance. Uses ACCU-CHEK machine blood sugar 2023-0 Yes [id number] Check U nivers diagnostic 6-07 blood ity of strip 00:00: sugar 2 [place] 00 times a Medical day. Branch E11.9. Brand per insurance. Uses ACCU-CHEK machine blood sugar 2023-0 Yes [id number] Check U nivers diagnostic 6-07 blood ity of strip 00:00: sugar 2 [place] 00 times a Medical day. Branch E11.9. Brand per insurance. Uses ACCU-CHEK machine blood sugar 2023-0 Yes [id number] Check U nivers diagnostic 6-07 blood ity of strip 00:00: sugar 2 [place] 00 times a Medical day. Branch E11.9. Brand per insurance. Uses ACCU-CHEK machine blood sugar 2023-0 Yes [id number] Check U nivers diagnostic 6-07 blood ity of strip 00:00: sugar 2 [place] 00 times a Medical day. Branch E11.9. Brand per insurance. Uses ACCU-CHEK machine blood sugar 2023-0 Yes [id number] Check U nivers diagnostic 6-07 blood ity of strip 00:00: sugar 2 [place] 00 times a Medical day. Branch E11.9. Brand per insurance. Uses ACCU-CHEK machine blood sugar 2023-0 Yes [id number] Check U nivers diagnostic 6-07 blood ity of strip 00:00: sugar 2 [place] 00 times a Medical day. Branch E11.9. Brand per insurance. Uses ACCU-CHEK machine blood sugar 2023-0 Yes [id number] Check U nivers diagnostic 6-07 blood ity of strip 00:00: sugar 2 [place] 00 times a Medical day. Branch E11.9. Brand per insurance. Uses ACCU-CHEK machine blood sugar 2023-0 Yes [id number] Check U nivers diagnostic 6-07 blood ity of strip 00:00: sugar 2 [place] 00 times a Medical day. Branch E11.9. Brand per insurance. Uses ACCU-CHEK machine blood sugar 2023-0 Yes [id number] Check U nivers diagnostic 6-07 blood ity of strip 00:00: sugar 2 [place] 00 times a Medical day. Branch E11.9. Brand per insurance. Uses ACCU-CHEK machine blood sugar 2023-0 Yes [id number] Check U nivers diagnostic 6-07 blood ity of strip 00:00: sugar 2 [place] 00 times a Medical day. Branch E11.9. Brand per insurance. Uses ACCU-CHEK machine blood sugar 2023-0 Yes [id number] Check U nivers diagnostic 6-07 blood ity of strip 00:00: sugar 2 [place] 00 times a Medical day. Branch E11.9. Brand per insurance. Uses ACCU-CHEK machine blood sugar 2023-0 Yes [id number] Check U nivers diagnostic 6-07 blood ity of strip 00:00: sugar 2 [place] 00 times a Medical day. Branch E11.9. Brand per insurance. Uses ACCU-CHEK machine blood sugar 2023-0 Yes [id number] Check U nivers diagnostic 6-07 blood ity of strip 00:00: sugar 2 [place] 00 times a Medical day. Branch E11.9. Brand per insurance. Uses ACCU-CHEK machine blood sugar 2023-0 Yes [id number] Check U nivers diagnostic 6-07 blood ity of strip 00:00: sugar 2 [place] 00 times a Medical day. Branch E11.9. Brand per insurance. Uses ACCU-CHEK machine blood sugar 2023-0 Yes [id number] Check U nivers diagnostic 6-07 blood ity of strip 00:00: sugar 2 [place] 00 times a Medical day. Branch E11.9. Brand per insurance. Uses ACCU-CHEK machine blood sugar 2023-0 Yes [id number] Check U nivers diagnostic 6-07 blood ity of strip 00:00: sugar 2 [place] 00 times a Medical day. Branch E11.9. Brand per insurance. Uses ACCU-CHEK machine metFORMIN 2023-0 2023- No 500mg Take 1 Univ ers 500 mg 6-11-06 tablet by ity of tablet 00:00: 00:00 mouth in [place] 00 :00 the Medical morning Branch and 1 tablet in the evening. Take with meals. metFORMIN 2023-0 2023- No 500mg Take 1 Univ ers 500 mg 6-06 25-19 tablet by ity of tablet 00:00: 00:00 mouth in [place] 00 :00 the Medical morning Branch and 1 tablet in the evening. Take with meals. divalproex 2023-0 2023- No 500mg Take 1 Uni vers ER 500 mg 5-25 05-25 tablet by ity of 24 hr 14:14: 00:00 mouth [place] tablet 51 :00 every 24 Medical ([facility] Branch ur) hours. divalproex 2023-0 2023- No 500mg Take 1 Uni vers ER 500 mg 5-25 05-25 tablet by ity of 24 hr 14:14: 00:00 mouth [place] tablet 51 :00 every 24 Medical ([facility] Branch ur) hours. SERTraline 2023-0 2023- No 25mg Take 1 Univ ers 25 mg 5-25 05-25 tablet by ity of tablet 14:13: 00:00 mouth in [place] 30 :00 the Medical morning. [place] SERTraline 2022- No 25mg Take 1 Univ ers 25 mg 5-25 05-25 tablet by ity of tablet 14:13: 00:00 mouth in [place] 30 :00 the Medical morning. [place] SEMGLEE,INS Yes 14U inject 14 U nivers ULIN 5-25 Units ity of GLARGINE-YF 14:08: under the [place] 13 skin in [facility] the [place] morning. As directed SEMGLEE,INS Yes 14U inject 14 U nivers ULIN 5-25 Units ity of GLARGINE-YF 14:08[facility] [place] [facility] the [place] morning. As directed SEMGLEE,INS Yes 14U inject 14 U nivers ULIN 5-25 Units ity of GLARGINE-YF 14:08: [place] [facility] [place] [facility] skin in [facility] the [place] morning. As directed SEMGLEE,INS Yes 14U inject 14 U nivers ULIN 5-25 Units ity of GLARGINE-YF 14:08: [place] [facility] [place] [facility] skin [place] [facility] [place] [facility] morning. As directed SEMGLEE,INS Yes 14U inject 14 U nivers ULIN 5-25 Units ity of GLARGINE-YF 14:08: [place] [facility] [place] [facility] skin in [facility] [place] [facility] morning. As directed SEMGLEE,INS 0 Yes 14U inject 14 U nivers ULIN 5-25 Units ity of GLARGINE-YF 14:08: under the [place] 13 skin in [facility] [place] [facility] morning. As directed SEMGLEE,INS 0 Yes 14U inject 14 U nivers ULIN 5-25 Units ity of GLARGINE-YF 14:08: under the [place] 13 skin in [facility] [place] [facility] morning. As directed SEMGLEE,INS 0 Yes 14U inject 14 U nivers ULIN 5-25 Units ity of GLARGINE-YF 14:08: under the [place] 13 skin in [facility] the [place] morning. As directed SEMGLEE,INS 3-0 Yes 14U inject 14 U nivers ULIN 5-25 Units ity of GLARGINE-YF 14:08: under the [place] 13 skin in [facility] the [place] morning. As directed SEMGLEE,INS 2022-0 Yes 14U inject 14 U nivers ULIN 5-25 Units ity of GLARGINE-YF 14:08: under the [place] 13 skin in [facility] the [place] morning. As directed SEMGLEE,INS 2023-0 Yes 14U inject 14 U nivers ULIN 5-25 Units ity of GLARGINE-YF 14:08: under the [place] 13 skin in [facility] the [place] morning. As directed SEMGLEE,INS 2022-0 Yes 14U inject 14 U nivers ULIN 5-25 Units ity of GLARGINE-YF 14:08: under the [place] 13 skin in [facility] the [place] morning. As directed SEMGLEE,INS 2022-0 Yes 14U inject 14 U nivers ULIN 5-25 Units ity of GLARGINE-YF 14:08: under the [place] 13 skin in [facility] the [place] morning. As directed SEMGLEE,INS 2022-0 Yes 14U inject 14 U nivers ULIN 5-25 Units ity of GLARGINE-YF 14:08: under the [place] 13 skin in [facility] the [place] morning. As directed SEMGLEE,INS 2022-0 Yes 14U inject 14 U nivers ULIN 5-25 Units ity of GLARGINE-YF 14:08: under the [place] 13 skin in [facility] the [place] morning. As directed SEMGLEE,INS 2023-0 Yes 14U inject 14 U nivers ULIN 5-25 Units ity of GLARGINE-YF 14:08: under the [place] 13 skin in [facility] the [place] morning. As directed SEMGLEE,INS 3-0 Yes 14U inject 14 U nivers ULIN 5-25 Units ity of GLARGINE-YF 14:08: under the [place] 13 skin in [facility] the [place] morning. As directed SEMGLEE,INS 2022-0 Yes 14U inject 14 U nivers ULIN 5-25 Units ity of GLARGINE-YF 14:08: under the [place] 13 skin in [facility] the [place] morning. As directed SEMGLEE,INS 0 Yes 14U inject 14 U nivers ULIN 5-25 Units ity of GLARGINE-YF 14:08: under the [place] 13 skin in [facility] the [place] morning. As directed SERTraline 0 Yes [id number] 25mg Take 1 [facility] 25 mg 5-25 tablet by ity of tablet 00:00: mouth in [place] 00 the morning. Branch SERTraline 2022-0 Yes [id number] 100mg Take 1 [facility] 100 mg 5-25 tablet by ity of tablet 00:00: mouth in [place] the morning. Branch divalproex 2022-0 Yes [id number] 500mg Take 1 [facility] ER 500 mg 5-25 tablet by ity o f 24 hr 00:00: mouth [place] tablet 00 every 24 Medical (twenty- [place] ur) hours. Bifidobacte 3-0 Yes [id number] 4mg Take 1 [facility] rium 5-25 capsule by ity of Infantis 00:00: mouth in [place] (ALIGN) 4 00 the Medical mg capsule morning. Branc h SERTraline 2022-0 Yes [id number] 25mg Take 1 [facility] 25 mg 5-25 tablet by ity of tablet 00:00: mouth in [place] 00 the Medical morning. Branch SERTraline 2022-0 Yes [id number] 100mg Take 1 [facility] 100 mg 5-25 tablet by ity of tablet 00:00: mouth in [place] 00 the Medical morning. Branch divalproex 3-0 Yes [id number] 500mg Take 1 [facility] ER 500 mg 5-25 tablet by ity o f 24 hr 00:00: mouth [place] tablet 00 every 24 Medical ([facility] ur) hours. Bifidobacte 2023-0 Yes [id number] 4mg Take 1 [facility] rium 5-25 capsule by ity of Inf[place] 00:00: mouth in [place] (ALIGN) 4 00 the Medical mg capsule morning. Branc h SERTraline 2022-0 Yes [id number] 25mg Take 1 [facility] 25 mg 5-25 tablet by ity of tablet 00:00: mouth in [place] 00 the Medical morning. Branch SERTraline 2023-0 Yes [id number] 100mg Take 1 [facility] 100 mg 5-25 tablet by ity of tablet 00:00: mouth in [place] 00 the Medical morning. Branch divalproex 2023-0 Yes [id number] 500mg Take 1 [facility] ER 500 mg 5-25 tablet by ity o f 24 hr 00:00: mouth [place] tablet 00 every 24 Medical (twenty-fo Branch ur) hours. Bifidobacte 2023-0 Yes [id number] 4mg Take 1 [facility] rium 5-25 capsule by ity of Inf[place] 00:00: mouth in [place] (ALIGN) 4 00 the Medical mg capsule morning. Branc h SERTraline 2023-0 Yes [id number] 25mg Take 1 [facility] 25 mg 5-25 tablet by ity of tablet 00:00: mouth in [place] 00 the Medical morning. Branch SERTraline 2023-0 Yes [id number] 100mg Take 1 [facility] 100 mg 5-25 tablet by ity of tablet 00:00: mouth in [place] 00 the Medical morning. Branch divalproex 2023-0 Yes [id number] 500mg Take 1 [facility] ER 500 mg 5-25 tablet by ity o f 24 hr 00:00: mouth [place] tablet 00 every 24 Medical (twenty-fo Branch ur) hours. Bifidobacte 2023-0 Yes [id number] 4mg Take 1 [facility] rium 5-25 capsule by ity of [facility] 00:00: mouth in [place] (ALIGN) 4 00 the Medical mg capsule morning. Bran h SERTraline 2023-0 Yes [id number] 25mg Take 1 [facility] 25 mg 5-25 tablet by ity of tablet 00:00: mouth in [place] 00 the Medical morning. Branch SERTraline 2023-0 Yes [id number] 100mg Take 1 [facility] 100 mg 5-25 tablet by ity of tablet 00:00: mouth in [place] 00 the Medical morning. Branch divalproex 2023-0 Yes [id number] 500mg Take 1 [facility] ER 500 mg 5-25 tablet by ity o f 24 hr 00:00: mouth [place] tablet 00 every 24 Medical (twenty-fo Branch ur) hours. Bifidobacte 2023-0 Yes [id number] 4mg Take 1 [facility] rium 5-25 capsule by ity of [facility] 00:00: mouth in [place] (ALIGN) 4 00 the Medical mg capsule morning. Branc h SERTraline 2023-0 Yes [id number] 25mg Take 1 [facility] 25 mg 5-25 tablet by ity of tablet 00:00: mouth in [place] 00 the Medical morning. Branch SERTraline 2023-0 Yes [id number] 100mg Take 1 [facility] 100 mg 5-25 tablet by ity of tablet 00:00: mouth in [place] 00 the Medical morning. Branch divalproex 2023-0 Yes [id number] 500mg Take 1 [facility] ER 500 mg 5-25 tablet by ity o f 24 hr 00:00: mouth [place] tablet 00 every 24 Medical (twenty- Branch ur) hours. Bifidobacte 2023-0 Yes [id number] 4mg Take 1 [facility] rium 5-25 capsule by ity of [facility] 00:00: mouth in [place] (ALIGN) 4 00 the Medical mg capsule morning. Branc h SERTraline 2023-0 Yes [id number] 25mg Take 1 [facility] 25 mg 5-25 tablet by ity of tablet 00:00: mouth in [place] 00 the Medical morning. Branch SERTraline 2023-0 Yes [id number] 100mg Take 1 [facility] 100 mg 5-25 tablet by ity of tablet 00:00: mouth in [place] 00 the Medical morning. Branch divalproex 2023-0 Yes [id number] 500mg Take 1 [facility] ER 500 mg 5-25 tablet by ity o f 24 hr 00:00: mouth [place] tablet 00 every 24 Medical (twenty-fo [place] ur) hours. Bifidobacte 2023-0 Yes [id number] 4mg Take 1 [facility] rium 5-25 capsule by ity of [facility] 00:00: mouth in [place] (ALIGN) 4 00 the Medical mg capsule morning. Branc h SERTraline 2023-0 Yes [id number] 25mg Take 1 [facility] 25 mg 5-25 tablet by ity of tablet 00:00: mouth in [place] 00 the Medical morning. Branch SERTraline 2023-0 Yes [id number] 100mg Take 1 [facility] 100 mg 5-25 tablet by ity of tablet 00:00: mouth in [place] 00 the Medical morning. Branch divalproex 2023-0 Yes [id number] 500mg Take 1 [facility] ER 500 mg 5-25 tablet by ity o f 24 hr 00:00: mouth [place] tablet 00 every 24 Medical (twenty-fo [place] ur) hours. Bifidobacte 2023-0 Yes [id number] 4mg Take 1 [facility] rium 5-25 capsule by ity of [facility] 00:00: mouth in [place] (ALIGN) 4 00 the Medical mg capsule morning. Branc h SERTraline 2023-0 Yes [id number] 25mg Take 1 [facility] 25 mg 5-25 tablet by ity of tablet 00:00: mouth in [place] 00 the Medical morning. Branch SERTraline 2023-0 Yes [id number] 100mg Take 1 [facility] 100 mg 5-25 tablet by ity of tablet 00:00: mouth in [place] 00 the Medical morning. Branch divalproex 2023-0 Yes [id number] 500mg Take 1 [facility] ER 500 mg 5-25 tablet by ity o f 24 hr 00:00: mouth [place] tablet 00 every 24 Medical ( [place] ur) hours. Bifidobacte 2023-0 Yes [id number] 4mg Take 1 [facility] rium 5-25 capsule by ity of [facility] 00:00: mouth in [place] (ALIGN) 4 00 the Medical mg capsule morning. Bran h SERTraline 2023-0 Yes [id number] 25mg Take 1 [facility] 25 mg 5-25 tablet by ity of tablet 00:00: mouth in [place] 00 the Medical morning. Branch SERTraline 2023-0 Yes [id number] 100mg Take 1 [facility] 100 mg 5-25 tablet by ity of tablet 00:00: mouth in [place] 00 the Medical morning. Branch Bifidobacte 2023-0 Yes [id number] 4mg Take 1 [facility] rium 5-25 capsule by ity of [facility] 00:00: mouth in [place] (ALIGN) 4 00 the Medical mg capsule morning. Branc h SERTraline 2023-0 Yes [id number] 25mg Take 1 [facility] 25 mg 5-25 tablet by ity of tablet 00:00: mouth in [place] 00 the Medical morning. Branch SERTraline 2023-0 Yes [id number] 100mg Take 1 [facility] 100 mg 5-25 tablet by ity of tablet 00:00: mouth in [place] 00 the Medical morning. Branch Bifidobacte 2023-0 Yes [id number] 4mg Take 1 [facility] rium 5-25 capsule by [facility]y of [facility] 00:00: mouth in [place] (ALIGN) 4 00 the Medical mg capsule morning. Branc h SERTraline 2023-0 Yes [id number] 25mg Take 1 [facility] 25 mg 5-25 tablet by ity of tablet 00:00: mouth in [place] 00 the Medical morning. Branch Bifidobacte 2023-0 Yes [id number] 4mg Take 1 [facility] rium 5-25 capsule by [facility] of [facility] 00:00: mouth in [place] (ALIGN) 4 00 the Medical mg capsule morning. Branc h SERTraline 2023-0 Yes [id number] 25mg Take 1 [facility] 25 mg 5-25 tablet by ity of tablet 00:00: mouth in [place] 00 the Medical morning. Branch Bifidobacte 2023-0 Yes [id number] 4mg Take 1 [facility] rium 5-25 capsule by it[facility] of [facility] 00:00: mouth in [place] (ALIGN) 4 00 the Medical mg capsule morning. Branc h SERTraline 2023-0 Yes [id number] 25mg Take 1 [facility] 25 mg 5-25 tablet by ity of tablet 00:00: mouth in [place] 00 the Medical morning. Branch Bifidobacte 2023-0 Yes [id number] 4mg Take 1 [facility] rium 5-25 capsule by [facility] of [facility] 00:00: mouth in [place] (ALIGN) 4 00 the Medical mg capsule morning. Branc h SERTraline 2023-0 Yes [id number] 25mg Take 1 [facility] 25 mg 5-25 tablet by ity of tablet 00:00: mouth in [place] 00 the Medical morning. Branch Bifidobacte 2023-0 Yes [id number] 4mg Take 1 [facility] rium 5-25 capsule by [facility] of [facility] 00:00: mouth in [place] (ALIGN) 4 00 the Medical mg capsule morning. Branc h SERTraline 2023-0 Yes [id number] 25mg Take 1 [facility] 25 mg 5-25 tablet by ity of tablet 00:00: mouth in [place] 00 the Medical morning. Branch Bifidobacte 2023-0 Yes [id number] 4mg Take 1 [facility] rium 5-25 capsule by [facility] of [facility] 00:00: mouth in [place] (ALIGN) 4 00 the Medical mg capsule morning. Branc h SERTraline 2023-0 Yes [id number] 25mg Take 1 [facility] 25 mg 5-25 tablet by ity of tablet 00:00: mouth in [place] 00 the Medical morning. Branch SERTraline 2023-0 Yes [id number] 100mg Take 1 [facility] 100 mg 5-25 tablet by ity of tablet 00:00: mouth in [place] 00 the Medical morning. Branch divalproex 2023-0 Yes [id number] 500mg Take 1 [facility] ER 500 mg 5-25 tablet by ity o f 24 hr 00:00: mouth [place] tablet 00 every 24 Medical (twenty- Branch ur) hours. Bifidobacte 2023-0 Yes [id number] 4mg Take 1 [facility] rium 5-25 capsule by [facility] of [facility] 00:00: mouth in [place] (ALIGN) 4 00 the Medical mg capsule morning. Bran h SERTraline 2023-0 Yes [id number] 25mg Take 1 [facility] 25 mg 5-25 tablet by ity of tablet 00:00: mouth in [place] 00 the Medical morning. Branch SERTraline 2023-0 Yes [id number] 100mg Take 1 [facility] 100 mg 5-25 tablet by ity of tablet 00:00: mouth in [place] 00 the Medical morning. Branch divalproex 2023-0 Yes [id number] 500mg Take 1 [facility] ER 500 mg 5-25 tablet by ity o f 24 hr 00:00: mouth [place] tablet 00 every 24 Medical (twenty- Branch ur) hours. Bifidobacte 2023-0 Yes [id number] 4mg Take 1 [facility] rium 5-25 capsule by it[facility] of [facility] 00:00: mouth in [place] (ALIGN) 4 00 the Medical mg capsule morning. Bran h SERTraline 2023-0 Yes [id number] 25mg Take 1 [facility] 25 mg 5-25 tablet by ity of tablet 00:00: mouth in [place] 00 the Medical morning. Branch SERTraline 2023-0 Yes [id number] 100mg Take 1 [facility] 100 mg 5-25 tablet by ity of tablet 00:00: mouth in [place] 00 the Medical morning. Branch divalproex 2023-0 Yes [id number] 500mg Take 1 [facility] ER 500 mg 5-25 tablet by ity o f 24 hr 00:00: mouth [place] tablet 00 every 24 Medical (twenty-fo Branch ur) hours. Bifidobacte 2023-0 Yes [id number] 4mg Take 1 [facility] rium 5-25 capsule by ity of [facility] 00:00: mouth in [place] (ALIGN) 4 00 the Medical mg capsule morning. Bran h SERTraline 2023-0 Yes [id number] 25mg Take 1 [facility] 25 mg 5-25 tablet by ity of tablet 00:00: mouth in [place] 00 the Medical morning. Branch SERTraline 2023-0 Yes [id number] 100mg Take 1 [facility] 100 mg 5-25 tablet by ity of tablet 00:00: mouth in [place] 00 the Medical morning. Branch divalproex 2023-0 Yes [id number] 500mg Take 1 [facility] ER 500 mg 5-25 tablet by ity o f 24 hr 00:00: mouth [place] tablet 00 every 24 Medical (twenty- [place] ur) hours. Bifidobacte 2023-0 Yes [id number] 4mg Take 1 [facility] rium 5-25 capsule by ity of [facility] 00:00: mouth in [place] (ALIGN) 4 00 the Medical mg capsule morning. Bran h SERTraline 2023-0 Yes [id number] 25mg Take 1 [facility] 25 mg 5-25 tablet by ity of tablet 00:00: mouth in [place] 00 the Medical morning. Branch SERTraline 2023-0 Yes [id number] 100mg Take 1 [facility] 100 mg 5-25 tablet by ity of tablet 00:00: mouth in [place] 00 the Medical morning. Branch divalproex 2023-0 Yes [id number] 500mg Take 1 [facility] ER 500 mg 5-25 tablet by ity o f 24 hr 00:00: mouth [place] tablet 00 every 24 Medical (twenty- [place] ur) hours. Bifidobacte 2023-0 Yes [id number] 4mg Take 1 [facility] rium 5-25 capsule by it[facility] of [facility] 00:00: mouth in [place] (ALIGN) 4 00 the Medical mg capsule morning. Bran h SERTraline 2023-0 Yes [id number] 25mg Take 1 [facility] 25 mg 5-25 tablet by ity of tablet 00:00: mouth in [place] 00 the Medical morning. Branch SERTraline 2023-0 Yes [id number] 100mg Take 1 [facility] 100 mg 5-25 tablet by ity of tablet 00:00: mouth in [place] 00 the Medical morning. Branch divalproex 2023-0 Yes [id number] 500mg Take 1 [facility] ER 500 mg 5-25 tablet by ity o f 24 hr 00:00: mouth [place] tablet 00 every 24 Medical (twenty- [place] ur) hours. Bifidobacte 2022-0 Yes [id number] 4mg Take 1 [facility] rium 5-25 capsule by ity of [facility] 00:00: mouth in [place] (ALIGN) 4 00 the Medical mg capsule morning. Branc h gabapentin 2022-0 2022- No [id number] 400mg Take 1 [facility] 400 mg 5-25 08-24 capsule by ity of capsule 00:00: 04:59 mouth in [place] 00 :00 [facility] and 1 capsule at noon and 1 capsule in the evening. Do all this for 90 days. gabapentin 2022-0 2022- No [id number] 400mg Take 1 [facility] 400 mg 5-25 08-24 capsule by ity of capsule 00:00: 04:59 mouth in [place] 00 :00 [facility] and 1 capsule at noon and 1 capsule in the evening. Do all this for 90 days. gabapentin 2022-0 2022- No [id number] 400mg Take 1 [facility] 400 mg 5-25 08-24 capsule by ity of capsule 00:00: 04:59 mouth in [place] 00 :00 [facility] and 1 capsule at noon and 1 capsule in the evening. Do all this for 90 days. gabapentin 2022-0 2022- No [id number] 400mg Take 1 [facility] 400 mg 5-25 08-24 capsule by ity of capsule 00:00: 04:59 mouth in [place] 00 :00 [facility] and 1 capsule at noon and 1 capsule in the evening. Do all this for 90 days. gabapentin 2022-0 2022- No [id number] 400mg Take 1 [facility] 400 mg 5-25 08-24 capsule by ity of capsule 00:00: 04:59 mouth in [place] 00 :00 [facility] and 1 capsule at noon and 1 capsule in the evening. Do all this for 90 days. gabapentin 2022-0 3- No [id number] 400mg Take 1 [facility] 400 mg 5-25 08-24 capsule by ity of capsule 00:00: 04:59 mouth in [place] 00 :00 [facility] and 1 capsule at noon and 1 capsule in the evening. Do all this for 90 days. gabapentin 2022-0 2022- No [id number] 400mg Take 1 [facility] 400 mg 5-25 08-24 capsule by ity of capsule 00:00: 04:59 mouth in [place] 00 :00 the Medical morning Branch and 1 capsule at noon and 1 capsule in the evening. Do all this for 90 days. gabapentin 2023-0 2023- No [id number] 400mg Take 1 [facility] 400 mg 5-25 08-24 capsule by ity of capsule 00:00: 04:59 mouth in [place] 00 :00 the Medical morning Branch and 1 capsule at noon and 1 capsule in the evening. Do all this for 90 days. gabapentin 2023-0 2023- No [id number] 400mg Take 1 [facility] 400 mg 5-25 08-24 capsule by ity of capsule 00:00: 04:59 mouth in [place] 00 :00 the [facility] morning Branch and 1 capsule at noon and 1 capsule in the evening. Do all this for 90 days. gabapentin 2023-0 2023- No [id number] 400mg Take 1 [facility] 400 mg 5-25 08-24 capsule by ity of capsule 00:00: 04:59 mouth in [place] 00 :00 the [facility] morning [place] and 1 capsule at noon and 1 capsule in the evening. Do all this for 90 days. gabapentin 2023-0 2023- No [id number] 400mg Take 1 [facility] 400 mg 5-25 08-24 capsule by ity of capsule 00:00: 04:59 mouth in [place] 00 :00 the [facility] [place] [facility] and 1 capsule at noon and 1 capsule in the evening. Do all this for 90 days. gabapentin 2023-0 2023- No [id number] 400mg Take 1 [facility] 400 mg 5-25 08-24 capsule by ity of capsule 00:00: 04:59 mouth in [place] 00 :00 the [facility] [place] [facility] and 1 capsule at noon and 1 capsule in the evening. Do all this for 90 days. gabapentin 2023-0 2023- No [id number] 400mg Take 1 [facility] 400 mg 5-25 08-24 capsule by ity of capsule 00:00: 04:59 mouth in [place] 00 :00 [facility] morning [place] and 1 capsule at noon and 1 capsule in the evening. Do all this for 90 days. gabapentin 2023-0 2023- No [id number] 400mg Take 1 [facility] 400 mg 5-25 08-24 capsule by ity of capsule 00:00: 04:59 mouth in [place] 00 :00 the Medical morning Branch and 1 capsule at noon and 1 capsule in the evening. Do all this for 90 days. gabapentin 2023-0 2023- No [id number] 400mg Take 1 [facility] 400 mg 5-25 08-24 capsule by ity of capsule 00:00: 04:59 mouth in [place] 00 :00 the Medical morning Branch and 1 capsule at noon and 1 capsule in the evening. Do all this for 90 days. gabapentin 2023-0 2023- No [id number] 400mg Take 1 [facility] 400 mg 5-25 08-24 capsule by ity of capsule 00:00: 04:59 mouth in [place] 00 :00 the Medical morning Branch and 1 capsule at noon and 1 capsule in the evening. Do all this for 90 days. gabapentin 2023-0 2023- No [id number] 400mg Take 1 [facility] 400 mg 5-25 08-24 capsule by ity of capsule 00:00: 04:59 mouth in [place] 00 :00 the [facility] morning [place] and 1 capsule at noon and 1 capsule in the evening. Do all this for 90 days. gabapentin 2023-0 2023- No [id number] 400mg Take 1 [facility] 400 mg 5-25 08-24 capsule by ity of capsule 00:00: 04:59 mouth in [place] 00 :00 the [facility] morning [place] and 1 capsule at noon and 1 capsule in the evening. Do all this for 90 days. gabapentin 2023-0 2023- No [id number] 400mg Take 1 [facility] 400 mg 5-25 08-24 capsule by ity of capsule 00:00: 04:59 mouth in [place] 00 :00 the [facility] morning [place] and 1 capsule at noon and 1 capsule in the evening. Do all this for 90 days. gabapentin 2023-0 2023- No [id number] 400mg Take 1 [facility] 400 mg 5-25 08-24 capsule by ity of capsule 00:00: 04:59 mouth in [place] 00 :00 the [facility] morning [place] and 1 capsule at noon and 1 capsule in the evening. Do all this for 90 days. gabapentin 2023-0 2023- No [id number] 400mg Take 1 [facility] 400 mg 5-25 08-24 capsule by ity of capsule 00:00: 04:59 mouth in [place] 00 :00 the Medical morning Branch and 1 capsule at noon and 1 capsule in the evening. Do all this for 90 days. gabapentin 2023-0 2022- No [id number] 400mg Take 1 [facility] 400 mg 5-25 08-24 capsule by ity of capsule 00:00: 04:59 mouth in [place] 00 :00 the Medical morning Branch and 1 capsule at noon and 1 capsule in the evening. Do all this for 90 days. gabapentin 2023-0 202- No [id number] 400mg Take 1 [facility] 400 mg 5-25 08-18 capsule by ity of capsule 00:00: 00:00 mouth in [place] 00 :00 the Medical morning Branch and 1 capsule at noon and 1 capsule in the evening. Do all this for 90 days. SERTraline 2022-0 2022- No [id number] 25mg Take 1 [facility] 25 mg 5-25 08-18 tablet by ity of tablet 00:00: 00:00 mouth in [place] 00 :00 the Medical morning. Branch Bifidobacte 2022-0 3- No [id number] 4mg Take 1 [facility] rium 5-25 08-18 capsule by ity of [facility] 00:00: 00:00 mouth in [facility] s (ALIGN) 4 00 :00 the Medical mg capsule morning. Branc h gabapentin 2022-0 2022- No [id number] 400mg Take 1 [facility] 400 mg 5-25 08-18 capsule by ity of capsule 00:00: 00:00 mouth in [place] 00 :00 the Medical morning Branch and 1 capsule at noon and 1 capsule in the evening. Do all this for 90 days. SERTraline 2022-0 2022- No [id number] 25mg Take 1 [facility] 25 mg 5-25 08-18 tablet by ity of tablet 00:00: 00:00 mouth in [place] 00 :00 the Medical morning. Branch Bifidobacte 2022-0 3- No [id number] 4mg Take 1 [facility] rium 5-25 08-18 capsule by ity of [place] 00:00: 00:[place] ([place] 4 [place] :00 the Medical mg capsule morning. Branc h SERTraline 2022-0 2022- No [id number] 100mg Take 1 [facility] 100 mg 5-25 07-19 tablet by ity of tablet 00:00: 00:00 mouth in [place] 00 :00 the Medical morning. Branch SERTraline 2023-0 2023- No [id number] 100mg Take 1 [facility] 100 mg 5-25 07-19 tablet by ity of tablet 00:00: 00:00 mouth in [place] 00 :00 the Medical morning. Branch SERTraline 2022- No [id number] 100mg Take 1 [facility] 100 mg 5-25 07-19 tablet by ity of tablet 00:00: 00:00 mouth in [place] 00 :00 the Medical morning. Branch SERTraline 2022- No [id number] 100mg Take 1 [facility] 100 mg 5-25 07-19 tablet by ity of tablet 00:00: 00:00 mouth in [place] 00 :00 the Medical morning. Branch divalproex 2022- No [id number] 500mg Take 1 [facility] ER 500 mg [...] in ity o f ets 10:46: the [place] (ACCU-CHEK 19 morning Medica l SOFT DEV [...] in ity o f ets 10:46: the [place] (ACCU-CHEK 19 morning Medica l SOFT DEV and 1 Each Branc h LANCETS at noon MISC) and 1 Each in the evening. Miscellaneo 2022-0 Yes Bilateral U nivers Medical 5-23 prosthetic ity of Supply Mis 10:46: s - [facility] as 19 Medical Branch lancing 2022-0 Yes 1{each} Take 1 Unive rs device/lanc 5-23 Each in ity o f ets 10:46: the [place] (ACCU-CHEK 19 morning Medica l SOFT DEV and 1 Each Branc h LANCETS at noon MIS) and 1 Each in the evening. SERTraline 3-0 Yes [id number] 100mg Take 1 [facility] 100 mg 5-19 tablet by ity of tablet 00:00: mouth in [place] 00 the Medical morning. Branch SERTraline 2023-0 Yes [id number] 100mg Take 1 [facility] 100 mg 5-19 tablet by ity of tablet 00:00: mouth in [place] 00 the Medical morning. Branch SERTraline 2023-0 Yes [id number] 100mg Take 1 [facility] 100 mg 5-19 tablet by ity of tablet 00:00: mouth in [place] 00 the Medical morning. Branch SERTraline 2022- No [id number] 100mg Take 1 [facility] 100 mg 5-19 05-25 tablet by ity of tablet 00:00: 00:00 mouth in [place] 00 :00 the Medical morning. Branch SERTraline 2022- No [id number] 100mg Take 1 [facility] 100 mg 5-19 05-25 tablet by ity of tablet 00:00: 00:00 mouth in [place] 00 :00 the Medical morning. Branch SERTraline 2022- No [id number] 100mg Take 1 [facility] 100 mg 5-19 05-25 tablet by ity of tablet 00:00: 00:00 mouth in [place] 00 :00 the Medical morning. Branch SERTraline 2022- No [id number] 100mg Take 1 [facility] 100 mg 5-19 05-25 tablet by ity of tablet 00:00: 00:00 mouth in [place] 00 :00 the Medical morning. Branch blood sugar Yes [id number] Check U nivers diagnostic 5-18 blood ity of strip 00:00: sugar 2 [place] 00 times a Medical day. Branch E11.9. Brand per insurance. Uses ACCU-CHEK machine Lancets Yes [id number] Check Unive rs Misc 5-18 blood ity of 00:00: sugar 2 [place] 00 times a Medical day. Branch E11.9. Brand per insurance. amiodarone Yes [id number] 200mg Take 1 [facility] 200 mg 5-18 tablet by ity of tablet 00:00: mouth in [place] 00 the Medical morning. Branch apixaban 5 Yes 5mg Take 1 Unive rs mg tablet 5-18 tablet by ity o f 00:00: mouth in [place] 00 the Medical morning Branch and 1 tablet in the evening. Indication s: ATRIAL FIBRILLATI ON atorvastati Yes [id number] 40mg Take 1 [facility] n 40 mg 5-18 tablet by ity of tablet 00:00: mouth at [place] [address] bedtime. Medical Branch lisinopriL Yes [id number] 2.5mg Take 1 [facility] 2.5 mg 5-18 tablet by ity of tablet 00:00: mouth in [place] 00 the Medical morning. Branch metoprolol Yes [id number] 25mg Take 1 U nivers tartrate 25 5-18 tablet by ity of mg tablet 00:00: [place] 00 the Medical morning Branch and 1 tablet in the evening. blood sugar 2022-0 Yes [id number] Check U nivers diagnostic 5-18 blood ity of strip 00:00: sugar 2 [place] 00 times a Medical day. Branch E11.9. Brand per insurance. Uses ACCU-CHEK machine Lancets 2022-0 Yes [id number] Check Unive rs Misc 5-18 blood ity of 00:00: sugar 2 [place] 00 times a Medical day. Branch E11.9. Brand per insurance. amiodarone 0 Yes [id number] 200mg Take 1 [facility] 200 mg 5-18 tablet by ity of tablet 00:00: mouth in [place] 00 the Medical morning. Branch apixaban 5 2022-0 Yes 5mg Take 1 Unive rs mg tablet 5-18 tablet by ity o f 00:00: mouth in [place] 00 the Medical morning Branch and 1 tablet in the evening. Indication s: ATRIAL FIBRILLATI ON atorvastati 0 Yes [id number] 40mg Take 1 [facility] n 40 mg 5-18 tablet by ity of tablet 00:00: mouth at [place] 00 bedtime. Medical Branch lisinopriL 0 Yes [id number] 2.5mg Take 1 [facility] 2.5 mg 5-18 tablet by ity of tablet 00:00: mouth in [place] 00 the Medical morning. Branch metoprolol 0 Yes [id number] 25mg Take 1 U nivers tartrate 25 5-18 tablet by ity of mg tablet 00:00: mouth in [facility] s 00 the Medical morning Branch and 1 tablet in the evening. blood sugar 2022-0 Yes [id number] Check U nivers diagnostic 5-18 blood ity of strip 00:00: sugar 2 [place] 00 times a Medical day. Branch E11.9. Brand per insurance. Uses ACCU-CHEK machine Lancets 2022-0 Yes [id number] Check Unive rs Misc 5-18 blood ity of 00:00: sugar 2 [place] 00 times a Medical day. Branch E11.9. Brand per insurance. amiodarone 2022-0 Yes [id number] 200mg Take 1 [facility] 200 mg 5-18 tablet by ity of tablet 00:00: mouth in [place] 00 the Medical morning. Branch apixaban 5 2022-0 Yes 5mg Take 1 Unive rs mg tablet 5-18 tablet by ity o f 00:00: mouth in [place] the morning Branch and 1 tablet in the evening. Indication s: ATRIAL FIBRILLATI ON atorvastati 2022-0 Yes [id number] 40mg Take 1 [facility] n 40 mg 5-18 tablet by ity of tablet 00:00: mouth at [place] [address] bedtime. Medical Branch lisinopriL 2022-0 Yes [id number] 2.5mg Take 1 [facility] 2.5 mg 5-18 tablet by ity of tablet 00:00: mouth in [place] 00 the Medical morning. Branch metoprolol 2022-0 Yes [id number] 25mg Take 1 U nivers tartrate 25 5-18 tablet by ity of mg tablet 00:00: mouth in [facility] 00 the morning Branch and 1 tablet in the evening. blood sugar 0 Yes [id number] Check U nivers diagnostic 5-18 blood ity of strip 00:00: sugar 2 [place] 00 times a Medical day. Branch E11.9. Brand per insurance. Uses ACCU-CHEK machine Lancets 0 Yes [id number] Check Unive rs Misc 5-18 blood ity of 00:00: sugar 2 [place] 00 times a Medical day. Branch E11.9. Brand per insurance. amiodarone 2022-0 Yes [id number] 200mg Take 1 [facility] 200 mg 5-18 tablet by ity of tablet 00:00: mouth in [place] 00 the Medical morning. Branch apixaban 5 2022-0 Yes 5mg Take 1 Unive rs mg tablet 5-18 tablet by ity o f 00:00: mouth in [place] the morning Branch and 1 tablet in the evening. Indication s: ATRIAL FIBRILLATI ON atorvastati 2022-0 Yes [id number] 40mg Take 1 [facility] n 40 mg 5-18 tablet by ity of tablet 00:00: mouth at [place] [address] bedtime. Medical Branch lisinopriL 2022-0 Yes [id number] 2.5mg Take 1 [facility] 2.5 mg 5-18 tablet by ity of tablet 00:00: mouth in [place] 00 the Medical morning. Branch metoprolol 2022-0 Yes [id number] 25mg Take 1 U nivers tartrate 25 5-18 tablet by ity of mg tablet 00:00: mouth in [facility] 00 the Medical morning Branch and 1 tablet in the evening. blood sugar 0 Yes [id number] Check U nivers diagnostic 5-18 blood ity of strip 00:00: sugar 2 [place] 00 times a Medical day. Branch E11.9. Brand per insurance. Uses ACCU-CHEK machine Lancets 2022-0 Yes [id number] Check Unive rs Misc 5-18 blood ity of 00:00: sugar 2 [place] 00 times a Medical day. Branch E11.9. Brand per insurance. amiodarone Yes [id number] 200mg Take 1 [facility] 200 mg 5-18 tablet by ity of tablet 00:00: mouth in [place] 00 the morning. Branch apixaban 5 0 Yes 5mg Take 1 Unive rs mg tablet 5-18 tablet by ity o f 00:00: mouth in [place] 00 the Medical morning Branch and 1 tablet in the evening. Indication s: ATRIAL FIBRILLATI ON atorvastati 0 Yes [id number] 40mg Take 1 [facility] n 40 mg 5-18 tablet by ity of tablet 00:00: mouth at [place] 00 bedtime. Medical Branch lisinopriL 0 Yes [id number] 2.5mg Take 1 [facility] 2.5 mg 5-18 tablet by ity of tablet 00:00: mouth in [place] 00 the Medical morning. Branch metoprolol 0 Yes [id number] 25mg Take 1 U nivers tartrate 25 5-18 tablet by ity of mg tablet 00:00: mouth in [facility] s 00 the Medical morning Branch and 1 tablet in the evening. blood sugar 0 Yes [id number] Check U nivers diagnostic 5-18 blood ity of strip 00:00: sugar 2 [place] 00 times a Medical day. Branch E11.9. Brand per insurance. Uses ACCU-CHEK machine Lancets 2022-0 Yes [id number] Check Unive rs Misc 5-18 blood ity of 00:00: sugar 2 [place] 00 times a Medical day. Branch E11.9. Brand per insurance. amiodarone 2022-0 Yes [id number] 200mg Take 1 [facility] 200 mg 5-18 tablet by ity of tablet 00:00: mouth in [place] 00 the Medical morning. Branch apixaban 5 2022-0 Yes 5mg Take 1 Unive rs mg tablet 5-18 tablet by ity o f 00:00: mouth in [place] 00 the Medical morning Branch and 1 tablet in the evening. Indication s: ATRIAL FIBRILLATI ON atorvastati 2022-0 Yes [id number] 40mg Take 1 [facility] n 40 mg 5-18 tablet by ity of tablet 00:00: mouth at [place] 00 bedtime. Medical Branch lisinopriL 2022-0 Yes [id number] 2.5mg Take 1 [facility] 2.5 mg 5-18 tablet by ity of tablet 00:00: mouth in [place] 00 the Medical morning. Branch metoprolol 2022-0 Yes [id number] 25mg Take 1 U nivers tartrate 25 5-18 tablet by ity of mg tablet 00:00: mouth in [facility] 00 the Medical morning Branch and 1 tablet in the evening. blood sugar 2022-0 Yes [id number] Check U nivers diagnostic 5-18 blood ity of strip 00:00: sugar 2 [place] 00 times a Medical day. Branch E11.9. Brand per insurance. Uses ACCU-CHEK machine Lancets 0 Yes [id number] Check Unive rs Misc 5-18 blood ity of 00:00: sugar 2 [place] 00 times a Medical day. Branch E11.9. Brand per insurance. amiodarone 0 Yes [id number] 200mg Take 1 [facility] 200 mg 5-18 tablet by ity of tablet 00:00: mouth in [place] 00 the Medical morning. Branch apixaban 5 2022-0 Yes 5mg Take 1 Unive rs mg tablet 5-18 tablet by ity o f 00:00: mouth in [place] 00 the Medical morning Branch and 1 tablet in the evening. Indication s: ATRIAL FIBRILLATI ON atorvastati 2022-0 Yes [id number] 40mg Take 1 [facility] n 40 mg 5-18 tablet by ity of tablet 00:00: mouth at [place] [address] bedtime. Medical Branch lisinopriL 2022-0 Yes [id number] 2.5mg Take 1 [facility] 2.5 mg 5-18 tablet by ity of tablet 00:00: mouth in [place] 00 the Medical morning. Branch metoprolol 2022-0 Yes [id number] 25mg Take 1 U nivers tartrate 25 5-18 tablet by ity of mg tablet 00:00: mouth [place] 00 the Medical morning Branch and 1 tablet in the evening. blood sugar 2022-0 Yes [id number] Check U nivers diagnostic 5-18 blood ity of strip 00:00: sugar 2 [place] 00 times a Medical day. Branch E11.9. Brand per insurance. Uses ACCU-CHEK machine Lancets 2022-0 Yes [id number] Check Unive rs Misc 5-18 blood ity of 00:00: sugar 2 [place] 00 times a Medical day. Branch E11.9. Brand per insurance. amiodarone Yes [id number] 200mg Take 1 [facility] 200 mg 5-18 tablet by ity of tablet 00:00: mouth in [place] 00 the Medical morning. Branch apixaban 5 0 Yes 5mg Take 1 Unive rs mg tablet 5-18 tablet by ity o f 00:00: mouth in [place] 00 the Medical morning Branch and 1 tablet in the evening. Indication s: ATRIAL FIBRILLATI ON atorvastati Yes [id number] 40mg Take 1 [facility] n 40 mg 5-18 tablet by ity of tablet 00:00: mouth at [place] 00 bedtime. Medical Branch lisinopriL Yes [id number] 2.5mg Take 1 [facility] 2.5 mg 5-18 tablet by ity of tablet 00:00: mouth in [place] 00 the Medical morning. Branch metoprolol Yes [id number] 25mg Take 1 U nivers tartrate 25 5-18 tablet by ity of mg tablet 00:00: mouth in [facility] s 00 the Medical morning Branch and 1 tablet in the evening. Lancets 0 Yes [id number] Check Unive rs Misc 5-18 blood ity of 00:00: sugar 2 [place] 00 times a Medical day. Branch E11.9. Brand per insurance. amiodarone 2022-0 Yes [id number] 200mg Take 1 [facility] 200 mg 5-18 tablet by ity of tablet 00:00: mouth in [place] 00 the Medical morning. Branch apixaban 5 0 Yes 5mg Take 1 Unive rs mg tablet 5-18 tablet by ity o f 00:00: mouth in [place] 00 the Medical morning Branch and 1 tablet in the evening. Indication s: ATRIAL FIBRILLATI ON atorvastati 2023-0 Yes [id number] 40mg Take 1 [facility] n 40 mg 5-18 tablet by ity of tablet 00:00: mouth at [place] 00 bedtime. Medical Branch lisinopriL 2022-0 Yes [id number] 2.5mg Take 1 [facility] 2.5 mg 5-18 tablet by ity of tablet 00:00: mouth in [place] 00 the Medical morning. Branch metoprolol 2022-0 Yes [id number] 25mg Take 1 U nivers tartrate 25 5-18 tablet by [facility] of mg tablet 00:00: mouth [place] 00 the Medical morning Branch and 1 tablet in the evening. Lancets 2022-0 Yes [id number] Check Unive rs Misc 5-18 blood ity of 00:00: sugar 2 [place] 00 times a Medical day. Branch E11.9. Brand per insurance. amiodarone 2022-0 Yes [id number] 200mg Take 1 [facility] 200 mg 5-18 tablet by ity of tablet 00:00: mouth in [place] 00 the Medical morning. Branch apixaban 5 0 Yes 5mg Take 1 [facility] rs mg tablet 5-18 tablet by ity o f 00:00: mouth in [place] 00 the Medical morning Branch and 1 tablet in the evening. Indication s: ATRIAL FIBRILLATI ON atorvastati 0 Yes [id number] 40mg Take 1 [facility] n 40 mg 5-18 tablet by ity of tablet 00:00: mouth at [place] 00 bedtime. Medical Branch lisinopriL 2022-0 Yes [id number] 2.5mg Take 1 [facility] 2.5 mg 5-18 tablet by ity of tablet 00:00: mouth in [place] 00 the Medical morning. Branch metoprolol 2022-0 Yes [id number] 25mg Take 1 U nivers tartrate 25 5-18 tablet by [facility] of mg tablet 00:00: mouth [place] 00 the Medical morning Branch and 1 tablet in the evening. Lancets 2022-0 Yes [id number] Check Unive rs Misc 5-18 blood ity of 00:00: sugar 2 [place] 00 times a Medical day. Branch E11.9. Brand per insurance. amiodarone 2022-0 Yes [id number] 200mg Take 1 [facility] 200 mg 5-18 tablet by ity of tablet 00:00: mouth in [place] 00 the Medical morning. Branch apixaban 5 2022-0 Yes 5mg Take 1 [facility] rs mg tablet 5-18 tablet by ity o f 00:00: mouth in [place] 00 the Medical morning Branch and 1 tablet in the evening. Indication s: ATRIAL FIBRILLATI ON atorvastati 2022-0 Yes [id number] 40mg Take 1 [facility] n 40 mg 5-18 tablet by ity of tablet 00:00: mouth at [place] 00 bedtime. Medical Branch lisinopriL 2022-0 Yes [id number] 2.5mg Take 1 [facility] 2.5 mg 5-18 tablet by ity of tablet 00:00: mouth in [place] 00 the morning. Branch metoprolol Yes [id number] 25mg Take 1 U nivers tartrate 25 5-18 tablet by ity of mg tablet 00:00: mouth in [facility] 00 the Medical morning Branch and 1 tablet in the evening. Lancets Yes [id number] Check Unive rs Misc 5-18 blood ity of 00:00: sugar 2 [place] 00 times a Medical day. Branch E11.9. Brand per insurance. amiodarone Yes [id number] 200mg Take 1 [facility] 200 mg 5-18 tablet by ity of tablet 00:00: mouth in [place] 00 the morning. Branch apixaban 5 2022-0 Yes 5mg Take 1 [facility] rs mg tablet 5-18 tablet by ity o f 00:00: mouth in [place] 00 the morning Branch and 1 tablet in the evening. Indication s: ATRIAL FIBRILLATI ON atorvastati 2022-0 Yes [id number] 40mg Take 1 [facility] n 40 mg 5-18 tablet by ity of tablet 00:00: mouth at [place] 00 bedtime. Medical Branch lisinopriL 2022-0 Yes [id number] 2.5mg Take 1 [facility] 2.5 mg 5-18 tablet by ity of tablet 00:00: mouth in [place] 00 the morning. Branch metoprolol 2022-0 Yes [id number] 25mg Take 1 U nivers tartrate 25 5-18 tablet by ity of mg tablet 00:00: mouth in [facility] 00 the Medical morning Branch and 1 tablet in the evening. Lancets 2022-0 Yes [id number] Check Unive rs Misc 5-18 blood ity of 00:00: sugar 2 [place] 00 times a Medical day. Branch E11.9. Brand per insurance. atorvastati 2022-0 Yes [id number] 40mg Take 1 [facility] n 40 mg 5-18 tablet by ity of tablet 00:00: mouth at [place] 00 bedtime. Medical Branch lisinopriL 2022-0 Yes [id number] 2.5mg Take 1 [facility] 2.5 mg 5-18 tablet by ity of tablet 00:00: mouth in [place] 00 the Medical morning. Branch metoprolol 2022-0 Yes [id number] 25mg Take 1 [facility] nivers tartrate 25 5-18 tablet by ity of mg tablet 00:00: mouth [place] 00 the Medical morning Branch and 1 tablet in the evening. Lancets 0 Yes [id number] Check Unive rs Misc 5-18 blood ity of 00:00: sugar 2 [place] 00 times a Medical day. Branch E11.9. Brand per insurance. atorvastati 2022-0 Yes [id number] 40mg Take 1 [facility] n 40 mg 5-18 tablet by ity of tablet 00:00: mouth at [place] 00 bedtime. Medical Branch lisinopriL 2022-0 Yes [id number] 2.5mg Take 1 [facility] 2.5 mg 5-18 tablet by ity of tablet 00:00: mouth in [place] 00 the Medical morning. Branch metoprolol 2022-0 Yes [id number] 25mg Take 1 U nivers tartrate 25 5-18 tablet by ity of mg tablet 00:00: mouth [place] 00 the Medical morning Branch and 1 tablet in the evening. Lancets 2022-0 Yes [id number] Check Unive rs Misc 5-18 blood ity of 00:00: sugar 2 [place] 00 times a Medical day. Branch E11.9. Brand per insurance. atorvastati 2022-0 Yes [id number] 40mg Take 1 [facility] n 40 mg 5-18 tablet by ity of tablet 00:00: mouth at [place] 00 bedtime. Medical Branch lisinopriL 2022-0 Yes [id number] 2.5mg Take 1 [facility] 2.5 mg 5-18 tablet by ity of tablet 00:00: mouth in [place] 00 the Medical morning. Branch metoprolol 2022-0 Yes [id number] 25mg Take 1 U nivers tartrate 25 5-18 tablet by ity of mg tablet 00:00: mouth in [place] 00 the Medical morning Branch and 1 tablet in the evening. Lancets Yes [id number] Check Unive rs Misc 5-18 blood ity of 00:00: sugar 2 [place] 00 times a Medical day. Branch E11.9. Brand per insurance. atorvastati 0 Yes [id number] 40mg Take 1 [facility] n 40 mg 5-18 tablet by ity of tablet 00:00: mouth at [place] 00 bedtime. Medical Branch lisinopriL Yes [id number] 2.5mg Take 1 [facility] 2.5 mg 5-18 tablet by ity of tablet 00:00: mouth in [place] 00 the Medical morning. Branch metoprolol Yes [id number] 25mg Take 1 U nivers tartrate 25 5-18 tablet by ity of mg tablet 00:00: mouth [place] 00 the Medical morning Branch and 1 tablet in the evening. Lancets 0 Yes [id number] Check Unive rs Misc 5-18 blood ity of 00:00: sugar 2 [place] 00 times a Medical day. Branch E11.9. Brand per insurance. atorvastati Yes [id number] 40mg Take 1 [facility] n 40 mg 5-18 tablet by ity of tablet 00:00: mouth at [place] 00 bedtime. Medical Branch lisinopriL Yes [id number] 2.5mg Take 1 [facility] 2.5 mg 5-18 tablet by ity of tablet 00:00: mouth in [place] 00 the Medical morning. Branch metoprolol Yes [id number] 25mg Take 1 U nivers tartrate 25 5-18 tablet by ity of mg tablet 00:00: mouth [place] 00 the Medical morning Branch and 1 tablet in the evening. Lancets 0 Yes [id number] Check Unive rs Misc 5-18 blood ity of 00:00: sugar 2 [place] 00 times a Medical day. Branch E11.9. Brand per insurance. Lancets 0 Yes [id number] Check Unive rs Misc 5-18 blood ity of 00:00: sugar 2 [place] 00 times a Medical day. Branch E11.9. Brand per insurance. Lancets 2023-0 Yes [id number] Check Unive rs Misc 5-18 blood ity of 00:00: sugar 2 [place] 00 times a Medical day. Branch E11.9. Brand per insurance. Lancets 0 Yes [id number] Check Unive rs Misc 5-18 blood ity of 00:00: sugar 2 [place] 00 times a Medical day. Branch E11.9. Brand per insurance. Lancets 0 Yes [id number] Check Unive rs Misc 5-18 blood ity of 00:00: sugar 2 [place] 00 times a Medical day. Branch E11.9. Brand per insurance. Lancets 0 Yes [id number] Check Unive rs Misc 5-18 blood ity of 00:00: sugar 2 [place] 00 times a Medical day. Branch E11.9. Brand per insurance. Lancets 0 Yes [id number] Check Unive rs Misc 5-18 blood ity of 00:00: sugar 2 [place] times a Medical day. Branch E11.9. Brand per insurance. Lancets 0 Yes [id number] Check Unive rs Misc 5-18 blood ity of 00:00: sugar 2 [place] 00 times a Medical day. Branch E11.9. Brand per insurance. Lancets 0 Yes [id number] Check Unive rs Misc 5-18 blood ity of 00:00: sugar 2 [place] 00 times a Medical day. Branch E11.9. Brand per insurance. Lancets 0 Yes [id number] Check Unive rs Misc 5-18 blood ity of 00:00: sugar 2 [place] 00 times a Medical day. Branch E11.9. Brand per insurance. blood sugar 0 Yes [id number] Check U nivers diagnostic 5-18 blood ity of strip 00:00: sugar 2 [place] 00 times a Medical day. Branch E11.9. Brand per insurance. Uses ACCU-CHEK machine Lancets 0 Yes [id number] Check Unive rs Misc 5-18 blood ity of 00:00: sugar 2 [place] 00 times a Medical day. Branch E11.9. Brand per insurance. amiodarone 0 Yes [id number] 200mg Take 1 [facility] 200 mg 5-18 tablet by ity of tablet 00:00: mouth in [place] 00 the Medical morning. Branch apixaban 5 2023-0 Yes 5mg Take 1 Un[facility] rs mg tablet 5-18 tablet by ity o f 00:00: mouth in [place] 00 the morning Branch and 1 tablet in the evening. Indication s: ATRIAL FIBRILLATI ON atorvastati Yes [id number] 40mg Take 1 [facility] n 40 mg 5-18 tablet by ity of tablet 00:00: mouth at [place] 00 bedtime. Medical Branch divalproex 0 Yes [id number] 250mg Take 1 [facility] ER 250 mg 5-18 tablet by ity o f 24 hr 00:00: mouth [place] tablet 00 every 24 Medical (twenty-fo Branch ur) hours. gabapentin Yes [id number] 300mg Take 1 [facility] 300 mg 5-18 capsule by ity of capsule 00:00: mouth in [place] 00 the morning Branch and 1 capsule at noon and 1 capsule in the evening. lisinopriL Yes [id number] 2.5mg Take 1 [facility] 2.5 mg 5-18 tablet by ity of tablet 00:00: mouth in [place] 00 the morning. Branch metoprolol Yes [id number] 25mg Take 1 U nivers tartrate 25 5-18 tablet by ity of mg tablet 00:00: mouth in [facility] 00 the morning Branch and 1 tablet in the evening. blood sugar Yes [id number] Check U nivers diagnostic 5-18 blood ity of strip 00:00: sugar 2 [place] 00 times a Medical day. Branch E11.9. Brand per insurance. Uses ACCU-CHEK machine Lancets Yes [id number] Check Unive rs Misc 5-18 blood ity of 00:00: sugar 2 [place] 00 times a Medical day. Branch E11.9. Brand per insurance. amiodarone Yes [id number] 200mg Take 1 [facility] 200 mg 5-18 tablet by ity of tablet 00:00: mouth in [place] 00 the morning. Branch apixaban 5 0 Yes 5mg Take 1 Unive rs mg tablet 5-18 tablet by ity o f 00:00: mouth in [place] 00 the morning Branch and 1 tablet in the evening. Indication s: ATRIAL FIBRILLATI ON atorvastati Yes [id number] 40mg Take 1 [facility] n 40 mg 5-18 tablet by ity of tablet 00:00: mouth at [place] 00 bedtime. Medical Branch divalproex 0 Yes [id number] 250mg Take 1 [facility] ER 250 mg 5-18 tablet by ity o f 24 hr 00:00: mouth [place] tablet 00 every 24 Medical ( Branch ur) hours. gabapentin 2022-0 Yes [id number] 300mg Take 1 [facility] 300 mg 5-18 capsule by ity of capsule 00:00: mouth in [place] 00 the morning Branch and 1 capsule at noon and 1 capsule in the evening. lisinopriL 0 Yes [id number] 2.5mg Take 1 [facility] 2.5 mg 5-18 tablet by ity of tablet 00:00: mouth in [place] 00 the morning. Branch metoprolol 0 Yes [id number] 25mg Take 1 U nivers tartrate 25 5-18 tablet by ity of mg tablet 00:00: mouth in [facility] 00 the Medical morning Branch and 1 tablet in the evening. blood sugar 0 Yes [id number] Check U nivers diagnostic 5-18 blood ity of strip 00:00: sugar 2 [place] 00 times a Medical day. Branch E11.9. Brand per insurance. Uses ACCU-CHEK machine Lancets Yes [id number] Check Unive rs Misc 5-18 blood ity of 00:00: sugar 2 [place] 00 times a Medical day. Branch E11.9. Brand per insurance. amiodarone 0 Yes [id number] 200mg Take 1 [facility] 200 mg 5-18 tablet by ity of tablet 00:00: mouth in [place] 00 the Medical morning. Branch apixaban 5 0 Yes 5mg Take 1 Un[facility] rs mg tablet 5-18 tablet by ity o f 00:00: mouth in [place] 00 the morning Branch and 1 tablet in the evening. Indication s: ATRIAL FIBRILLATI ON atorvastati 2022-0 Yes [id number] 40mg Take 1 [facility] n 40 mg 5-18 tablet by ity of tablet 00:00: mouth at [place] 00 bedtime. Medical Branch divalproex 2022-0 Yes [id number] 250mg Take 1 [facility] ER 250 mg 5-18 tablet by ity o f 24 hr 00:00: mouth [place] tablet 00 every 24 Medical ([facility] ur) hours. gabapentin 2022-0 Yes [id number] 300mg Take 1 [facility] 300 mg 5-18 capsule by ity of capsule 00:00: mouth in [place] the morning Branch and 1 capsule at noon and 1 capsule in the evening. lisinopriL 2022-0 Yes [id number] 2.5mg Take 1 [facility] 2.5 mg 5-18 tablet by ity of tablet 00:00: mouth in [place] 00 the morning. Branch metoprolol 2022-0 Yes [id number] 25mg Take 1 U nivers tartrate 25 5-18 tablet by ity of mg tablet 00:00: mouth in [facility] 00 the morning Branch and 1 tablet in the evening. blood sugar 2022-0 Yes [id number] Check U nivers diagnostic 5-18 blood ity of strip 00:00: sugar 2 [place] times a Medical day. Branch E11.9. Brand per insurance. Uses ACCU-CHEK machine Lancets 0 Yes [id number] Check Unive rs Misc 5-18 blood ity of 00:00: sugar 2 [place] times a Medical day. Branch E11.9. Brand per insurance. amiodarone 2022-0 Yes [id number] 200mg Take 1 [facility] 200 mg 5-18 tablet by ity of tablet 00:00: mouth in [place] the morning. Branch apixaban 5 2022-0 Yes 5mg Take 1 Unive rs mg tablet 5-18 tablet by ity o f 00:00: mouth in [place] the Branch and 1 tablet in the evening. Indication s: ATRIAL FIBRILLATI ON atorvastati 2022-0 Yes [id number] 40mg Take 1 [facility] n 40 mg 5-18 tablet by ity of tablet 00:00: mouth at [place] 00 bedtime. Medical Branch divalproex 2022-0 Yes [id number] 250mg Take 1 [facility] ER 250 mg 5-18 tablet by ity o f 24 hr 00:00: mouth [place] tablet 00 every 24 Medical ([place] [facility] ur) hours. gabapentin 2022-0 Yes [id number] 300mg Take 1 [facility] 300 mg 5-18 capsule by ity of capsule 00:00: mouth in [place] the morning Branch and 1 capsule at noon and 1 capsule in the evening. lisinopriL 2022-0 Yes [id number] 2.5mg Take 1 [facility] 2.5 mg 5-18 tablet by ity of tablet 00:00: mouth in [place] 00 the Medical morning. Branch metoprolol 2022-0 Yes [id number] 25mg Take 1 U nivers tartrate 25 5-18 tablet by ity of mg tablet 00:00: mouth in [facility] s 00 the morning Branch and 1 tablet in the evening. blood sugar 2022-0 Yes [id number] Check U nivers diagnostic 5-18 blood ity of strip 00:00: sugar 2 [place] 00 times a Medical day. Branch E11.9. Brand per insurance. Uses ACCU-CHEK machine Lancets 0 Yes [id number] Check Unive rs Misc 5-18 blood ity of 00:00: sugar 2 [place] 00 times a Medical day. Branch E11.9. Brand per insurance. amiodarone 2022-0 Yes [id number] 200mg Take 1 [facility] 200 mg 5-18 tablet by ity of tablet 00:00: mouth in [place] 00 the morning. Branch apixaban 5 2022-0 Yes 5mg Take 1 Unive rs mg tablet 5-18 tablet by ity o f 00:00: mouth in [place] the morning Branch and 1 tablet in the evening. Indication s: ATRIAL FIBRILLATI ON atorvastati 2022-0 Yes [id number] 40mg Take 1 [facility] n 40 mg 5-18 tablet by ity of tablet 00:00: mouth at [place] 00 bedtime. Medical Branch divalproex 2022-0 Yes [id number] 250mg Take 1 [facility] ER 250 mg 5-18 tablet by ity o f 24 hr 00:00: mouth [place] tablet 00 every 24 Medical (twenty-fo Branch ur) hours. gabapentin 2022-0 Yes [id number] 300mg Take 1 [facility] 300 mg 5-18 capsule by ity of capsule 00:00: mouth in [place] 00 the morning Branch and 1 capsule at noon and 1 capsule in the evening. lisinopriL 2022-0 Yes [id number] 2.5mg Take 1 [facility] 2.5 mg 5-18 tablet by ity of tablet 00:00: mouth in [place] 00 the Medical morning. Branch metoprolol 2022-0 Yes [id number] 25mg Take 1 U nivers tartrate 25 5-18 tablet by ity of mg tablet 00:00: mouth in [place] 00 the Medical morning Branch and 1 tablet in the evening. blood sugar 2022-0 Yes [id number] Check U nivers diagnostic 5-18 blood ity of strip 00:00: sugar 2 [place] 00 times a Medical day. Branch E11.9. Brand per insurance. Uses ACCU-CHEK machine Lancets 2022-0 Yes [id number] Check Unive rs Misc 5-18 blood ity of 00:00: sugar 2 [place] 00 times a Medical day. Branch E11.9. Brand per insurance. amiodarone 2022-0 Yes [id number] 200mg Take 1 [facility] 200 mg 5-18 tablet by ity of tablet 00:00: mouth in [place] 00 the Medical morning. Branch apixaban 5 0 Yes 5mg Take 1 Unive rs mg tablet 5-18 tablet by ity o f 00:00: mouth in [place] 00 the Medical morning Branch and 1 tablet in the evening. Indication s: ATRIAL FIBRILLATI ON atorvastati 0 Yes [id number] 40mg Take 1 [facility] n 40 mg 5-18 tablet by ity of tablet 00:00: mouth at [place] 00 bedtime. Medical Branch lisinopriL 0 Yes [id number] 2.5mg Take 1 [facility] 2.5 mg 5-18 tablet by ity of tablet 00:00: mouth in [place] 00 the Medical morning. Branch metoprolol 0 Yes [id number] 25mg Take 1 U nivers tartrate 25 5-18 tablet by ity of mg tablet 00:00: mouth in [facility] 00 the Medical morning Branch and 1 tablet in the evening. blood sugar 0 Yes [id number] Check U nivers diagnostic 5-18 blood ity of strip 00:00: sugar 2 [place] 00 times a Medical day. Branch E11.9. Brand per insurance. Uses ACCU-CHEK machine Lancets 2022-0 Yes [id number] Check Unive rs Misc 5-18 blood ity of 00:00: sugar 2 [place] 00 times a Medical day. Branch E11.9. Brand per insurance. amiodarone 2022-0 Yes [id number] 200mg Take 1 [facility] 200 mg 5-18 tablet by ity of tablet 00:00: mouth in [place] 00 the Medical morning. Branch apixaban 5 2023-0 Yes 5mg Take 1 Unive rs mg tablet 5-18 tablet by ity o f 00:00: mouth in [place] 00 the Medical morning Branch and 1 tablet in the evening. Indication s: ATRIAL FIBRILLATI ON atorvastati 2022-0 Yes [id number] 40mg Take 1 [facility] n 40 mg 5-18 tablet by ity of tablet 00:00: mouth at [place] [address] bedtime. Medical Branch lisinopriL 2022-0 Yes [id number] 2.5mg Take 1 [facility] 2.5 mg 5-18 tablet by ity of tablet 00:00: mouth in [place] 00 the Medical morning. Branch metoprolol 2022-0 Yes [id number] 25mg Take 1 U nivers tartrate 25 5-18 tablet by ity of mg tablet 00:00: mouth in [facility] 00 the morning Branch and 1 tablet in the evening. blood sugar 0 Yes [id number] Check U nivers diagnostic 5-18 blood ity of strip 00:00: sugar 2 [place] 00 times a Medical day. Branch E11.9. Brand per insurance. Uses ACCU-CHEK machine Lancets Yes [id number] Check Unive rs Misc 5-18 blood ity of 00:00: sugar 2 [place] 00 times a Medical day. Branch E11.9. Brand per insurance. amiodarone 0 Yes [id number] 200mg Take 1 [facility] 200 mg 5-18 tablet by ity of tablet 00:00: mouth in [place] 00 the Medical morning. Branch apixaban 5 2022-0 Yes 5mg Take 1 Unive rs mg tablet 5-18 tablet by ity o f 00:00: mouth in [place] 00 the Medical morning Branch and 1 tablet in the evening. Indication s: ATRIAL FIBRILLATI ON atorvastati 2022-0 Yes [id number] 40mg Take 1 [facility] n 40 mg 5-18 tablet by ity of tablet 00:00: mouth at [place] [address] bedtime. Medical Branch lisinopriL 2022-0 Yes [id number] 2.5mg Take 1 [facility] 2.5 mg 5-18 tablet by ity of tablet 00:00: mouth in [place] 00 the Medical morning. Branch metoprolol 2022-0 Yes [id number] 25mg Take 1 U nivers tartrate 25 5-18 tablet by ity of mg tablet 00:00: mouth in [facility] 00 the Medical morning Branch and 1 tablet in the evening. blood sugar 2022-0 Yes [id number] Check U nivers diagnostic 5-18 blood ity of strip 00:00: sugar 2 [place] 00 times a Medical day. Branch E11.9. Brand per insurance. Uses ACCU-CHEK machine Lancets 2022-0 Yes [id number] Check Unive rs Misc 5-18 blood ity of 00:00: sugar 2 [place] 00 times a Medical day. Branch E11.9. Brand per insurance. amiodarone 2022-0 Yes [id number] 200mg Take 1 [facility] 200 mg 5-18 tablet by ity of tablet 00:00: mouth in [place] 00 the Medical morning. Branch apixaban 5 2022-0 Yes 5mg Take 1 Unive rs mg tablet 5-18 tablet by ity o f 00:00: mouth in [place] 00 the Medical morning Branch and 1 tablet in the evening. Indication s: ATRIAL FIBRILLATI ON atorvastati 2022-0 Yes [id number] 40mg Take 1 [facility] n 40 mg 5-18 tablet by ity of tablet 00:00: mouth at [place] 00 bedtime. Medical Branch lisinopriL 0 Yes [id number] 2.5mg Take 1 [facility] 2.5 mg 5-18 tablet by ity of tablet 00:00: mouth in [place] 00 the Medical morning. Branch metoprolol 2022-0 Yes [id number] 25mg Take 1 U nivers tartrate 25 5-18 tablet by ity of mg tablet 00:00: mouth in [facility] 00 the Medical morning Branch and 1 tablet in the evening. blood sugar 2022-0 Yes [id number] Check U nivers diagnostic 5-18 blood ity of strip 00:00: sugar 2 [place] 00 times a Medical day. Branch E11.9. Brand per insurance. Uses ACCU-CHEK machine Lancets 2022-0 Yes [id number] Check Unive rs Misc 5-18 blood ity of 00:00: sugar 2 [place] 00 times a Medical day. Branch E11.9. Brand per insurance. amiodarone 2022-0 Yes [id number] 200mg Take 1 [facility] 200 mg 5-18 tablet by ity of tablet 00:00: mouth in [place] 00 the Medical morning. Branch apixaban 5 2023-0 Yes 5mg Take 1 Unive rs mg tablet 5-18 tablet by ity o f 00:00: mouth in [place] 00 the Medical morning Branch and 1 tablet in the evening. Indication s: ATRIAL FIBRILLATI ON atorvastati 2022-0 Yes [id number] 40mg Take 1 [facility] n 40 mg 5-18 tablet by ity of tablet 00:00: mouth at [place] [address] bedtime. Medical Branch lisinopriL 2022-0 Yes [id number] 2.5mg Take 1 [facility] 2.5 mg 5-18 tablet by ity of tablet 00:00: mouth in [place] 00 the Medical morning. Branch metoprolol 0 Yes [id number] 25mg Take 1 U nivers tartrate 25 5-18 tablet by ity of mg tablet 00:00: mouth in [facility] 00 the morning Branch and 1 tablet in the evening. blood sugar 0 Yes [id number] Check U nivers diagnostic 5-18 blood ity of strip 00:00: sugar 2 [place] 00 times a Medical day. Branch E11.9. Brand per insurance. Uses ACCU-CHEK machine Lancets Yes [id number] Check Unive rs Misc 5-18 blood ity of 00:00: sugar 2 [place] 00 times a Medical day. Branch E11.9. Brand per insurance. amiodarone 0 Yes [id number] 200mg Take 1 [facility] 200 mg 5-18 tablet by ity of tablet 00:00: mouth in [place] 00 the Medical morning. Branch apixaban 5 0 Yes 5mg Take 1 Unive rs mg tablet 5-18 tablet by ity o f 00:00: mouth in [place] 00 the Medical morning Branch and 1 tablet in the evening. Indication s: ATRIAL FIBRILLATI ON atorvastati 2022-0 Yes [id number] 40mg Take 1 [facility] n 40 mg 5-18 tablet by ity of tablet 00:00: mouth at [place] [address] bedtime. Medical Branch lisinopriL 2022-0 Yes [id number] 2.5mg Take 1 [facility] 2.5 mg 5-18 tablet by ity of tablet 00:00: mouth in [place] 00 the Medical morning. Branch metoprolol 2022-0 Yes [id number] 25mg Take 1 U nivers tartrate 25 5-18 tablet by ity of mg tablet 00:00: mouth in [facility] s 00 the Medical morning Branch and 1 tablet in the evening. blood sugar Yes [id number] Check U nivers diagnostic 5-18 blood ity of strip 00:00: sugar 2 [place] 00 times a Medical day. Branch E11.9. Brand per insurance. Uses ACCU-CHEK machine Lancets Yes [id number] Check Unive rs Misc 5-18 blood ity of 00:00: sugar 2 [place] 00 times a Medical day. Branch E11.9. Brand per insurance. amiodarone Yes [id number] 200mg Take 1 [facility] 200 mg 5-18 tablet by ity of tablet 00:00: mouth in [place] 00 the Medical morning. Branch apixaban 5 Yes 5mg Take 1 Unive rs mg tablet 5-18 tablet by ity o f 00:00: mouth in [place] 00 the Medical morning Branch and 1 tablet in the evening. Indication s: ATRIAL FIBRILLATI ON atorvastati Yes [id number] 40mg Take 1 [facility] n 40 mg 5-18 tablet by ity of tablet 00:00: mouth at [place] 00 bedtime. Medical Branch lisinopriL Yes [id number] 2.5mg Take 1 [facility] 2.5 mg 5-18 tablet by ity of tablet 00:00: mouth in [place] 00 the Medical morning. Branch metoprolol Yes [id number] 25mg Take 1 U nivers tartrate 25 5-18 tablet by ity of mg tablet 00:00: mouth in [facility] 00 the Medical morning Branch and 1 tablet in the evening. atorvastati 2022- No [id number] 40mg Take 1 [facility] n 40 mg 5-18 08-18 tablet by ity of tablet 00:00: 00:00 mouth at [place] 00 :00 bedtime. Medical Branch lisinopriL 2022-2022- No [id number] 2.5mg Take 1 [facility] 2.5 mg 5-18 08-18 tablet by ity of tablet 00:00: 00:00 mouth in [place] 00 :00 the Medical morning. Branch metoprolol 2022- No [id number] 25mg Take 1 [facility] tartrate 25 5-18 08-18 tablet by it y of mg tablet 00:00: 00:00 mouth in [facility] 00 :00 the Medical morning Branch and 1 tablet in the evening. atorvastati 2022-2022- No [id number] 40mg Take 1 [facility] n 40 mg 09-05-18 tablet by ity of tablet 00:00: 00:00 mouth at [place] 00 :00 bedtime. Medical Branch lisinopriL 2022-2022- No [id number] 2.5mg Take 1 [facility] 2.5 mg 09-05-18 tablet by ity of tablet 00:00: 00:00 mouth in [place] 00 :00 the Medical morning. Branch metoprolol 2022- No [id number] 25mg Take 1 [facility] tartrate 25 09-05-18 tablet by it y of mg tablet 00:00: 00:00 mouth in [facility] as 00 :00 the Medical morning Branch and 1 tablet in the evening. amiodarone 2022-2022- No [id number] 200mg Take 1 [facility] 200 mg 09-05-19 tablet by ity of tablet 00:00: 00:00 mouth in [place] 00 :00 the Medical morning. Branch apixaban 5 2022- No 5mg Take 1 Univ ers mg tablet 09-05-19 tablet by ity of 00:00: 00:00 mouth in [place] 00 :00 the Medical morning Branch and 1 tablet in the evening. Indication s: ATRIAL FIBRILLATI ON amiodarone 2022-2022- No [id number] 200mg Take 1 [facility] 200 mg 09-05-19 tablet by ity of tablet 00:00: 00:00 mouth in [place] 00 :00 the Medical morning. Branch apixaban 5 2022- No 5mg Take 1 Univ ers mg tablet 09-05-19 tablet by ity of 00:00: 00:00 mouth in [place] 00 :00 the Medical morning Branch and 1 tablet in the evening. Indication s: ATRIAL FIBRILLATI ON amiodarone 2022-2022- No [id number] 200mg Take 1 [facility] 200 mg 5-18 -19 tablet by ity of tablet 00:00: 00:00 mouth in [place] 00 :00 the Medical morning. Branch apixaban 5 2022- No 5mg Take 1 Univ ers mg tablet -19 tablet by ity of 00:00: 00:00 mouth in [place] 00 :00 the Medical morning Branch and 1 tablet in the evening. Indication s: ATRIAL FIBRILLATI ON amiodarone 2022- No [id number] 200mg Take 1 [facility] 200 mg 09-05 tablet by ity of tablet 00:00: 00:00 mouth in [place] 00 :00 the Medical morning. Branch apixaban 5 2022- No 5mg Take 1 Univ ers mg tablet 09-05 tablet by ity of 00:00: 00:00 mouth in [place] 00 :00 the Medical morning Branch and 1 tablet in the evening. Indication s: ATRIAL FIBRILLATI ON blood sugar 2022- No [id number] Check Univers diagnostic 09-05 blood ity of strip 00:00: 00:00 sugar 2 [place] 00 :00 times a Medical day. Branch E11.9. Brand per insurance. Uses ACCU-CHEK machine divalproex 2022- No [id number] 250mg Take 1 Univers ER 250 mg 5-18 05-25 tablet by ity of 24 hr 00:00: 00:00 mouth [place] tablet 00 :00 every 24 Medical ([facility] Branch ur) hours. gabapentin 2022-2022- No [id number] 300mg Take 1 Univers 300 mg 5-18 05-25 capsule by ity of capsule 00:00: 00:00 mouth in [place] 00 :00 the Medical morning Branch and 1 capsule at noon and 1 capsule in the evening. divalproex 2022-2022- No [id number] 250mg Take 1 Univers ER 250 mg 5-18 05-25 tablet by ity of 24 hr 00:00: 00:00 mouth [place] tablet 00 :00 every 24 Medical ([facility] Branch ur) hours. gabapentin 2022-2022- No [id number] 300mg Take 1 [facility] 300 mg 5-18 05-25 capsule by ity of capsule 00:00: 00:00 mouth in [place] 00 :00 the Medical morning Branch and 1 capsule at noon and 1 capsule in the evening. divalproex 2022-2022- No [id number] 250mg Take 1 [facility] ER 250 mg 5-18 05-25 tablet by ity of 24 hr 00:00: 00:00 mouth [place] tablet 00 :00 every 24 Medical (twenty-fo Branch ur) hours. gabapentin 2022-0 2022- No [id number] 300mg Take 1 [facility] 300 mg 5-18 05-25 capsule by ity of capsule 00:00: 00:00 mouth in [place] 00 :00 the Medical morning Branch and 1 capsule at noon and 1 capsule in the evening. divalproex 2022-0 3- No [id number] 250mg Take 1 Univers ER 250 mg 5-18 05-25 tablet by ity of 24 hr 00:00: 00:00 mouth [place] tablet 00 :00 every 24 Medical (twenty-fo Branch ur) hours. gabapentin 2022-0 2022- No [id number] 300mg Take 1 [facility] 300 mg 5-18 05-25 capsule by ity of capsule 00:00: 00:00 mouth in [place] 00 :00 the Medical morning Branch and 1 capsule at noon and 1 capsule in the evening. calcium 2022-0 2022- No 500mg 500 mg, Unive rs [...] Medical 1,000 dose, On Branch mg/100 mL [facility] RTU 08/14/22 at 0215, Administer over 15 Minutes, 100 mL NaCl 0.9% 2022- No 500mL at 999 Univ ers (NS) bolus 08-14 mL/hr, 500 it y of infusion 05:30: 07:00 mL, IV [place] 500 mL 00 :00 Infusion, Medical ONCE, 1 Branch dose, On 08/14/22 at 0030, STAT divalproex 2022-0 Yes [id number] 250mg Take 1 Univers ER 250 mg -26 tablet by ity o f 24 hr 00:00: mouth [place] tablet 00 every 24 Medical (twenty-fo Branch ur) hours. divalproex 2023-0 Yes [id number] 250mg Take 1 Univers ER 250 mg 4-26 tablet by ity o f 24 hr 00:00: mouth [place] tablet 00 every 24 Medical (twenty-fo Branch ur) hours. divalproex 2023-0 Yes [id number] 250mg Take 1 Univers ER 250 mg 4-26 tablet by ity o f 24 hr 00:00: mouth [place] tablet 00 every 24 Medical (twenty-fo Branch ur) hours. divalproex 2023-0 Yes [id number] 250mg Take 1 Univers ER 250 mg 4-26 tablet by ity o f 24 hr 00:00: mouth [place] tablet 00 every 24 Medical (twenty-fo Branch ur) hours. divalproex 2023-0 Yes [id number] 250mg Take 1 Univers ER 250 mg 4-26 tablet by ity o f 24 hr 00:00: mouth [place] tablet 00 every 24 Medical (twenty-fo Branch ur) hours. divalproex 2023-0 Yes [id number] 250mg Take 1 Univers ER 250 mg 4-26 tablet by ity o f 24 hr 00:00: mouth [place] tablet 00 every 24 Medical (twenty-fo Branch ur) hours. divalproex 2023-0 Yes [id number] 250mg Take 1 Univers ER 250 mg 4-26 tablet by ity o f 24 hr 00:00: mouth [place] tablet 00 every 24 Medical (twenty-fo Branch ur) hours. divalproex 2023-0 Yes [id number] 250mg Take 1 Univers ER 250 mg 4-26 tablet by ity o f 24 hr 00:00: mouth [place] tablet 00 every 24 Medical (twenty-fo Branch ur) hours. divalproex 2023-0 Yes [id number] 250mg Take 1 [facility] ER 250 mg 4-26 tablet by ity o f 24 hr 00:00: mouth [place] tablet 00 every 24 Medical (twenty-fo Branch ur) hours. divalproex 2023-0 Yes [id number] 250mg Take 1 Univers ER 250 mg 4-26 tablet by ity o f 24 hr 00:00: mouth [place] tablet 00 every 24 Medical (twenty-fo Branch ur) hours. divalproex 2023-0 Yes [id number] 250mg Take 1 Univers ER 250 mg 4-26 tablet by ity o f 24 hr 00:00: mouth [place] tablet 00 every 24 Medical (twenty-fo Branch ur) hours. divalproex 2022-0 Yes [id number] 250mg Take 1 [facility] ER 250 mg 4-26 tablet by ity o f 24 hr 00:00: mouth [place] tablet 00 every 24 Medical (twenty-fo Branch ur) hours. divalproex 2022-0 2023- No [id number] 250mg Take 1 [facility] ER 250 mg 4-26 05-18 tablet by ity of 24 hr 00:00: 00:00 mouth [place] tablet 00 :00 every 24 Medical (twenty-fo Branch ur) hours. lancing Yes 1{each} Take 1 [facility] the [place] (ACCU-CHEK 29 morning Medica l SOFT DEV and 1 Each Branc h LANCETS at noon MISC) and 1 Each in the evening. lancing Yes 1{each} Take 1 Unive rs device/lanc 4-17 Each in [facility] ets 14:20: the [place] (ACCU-CHEK 29 morning Medica l SOFT DEV and 1 Each Branc h LANCETS at noon MISC) and 1 Each in the evening. lancing Yes 1{each} Take 1 Unive rs device/lanc 4-17 Each in [facility] ets 14:20: the [place] (ACCU-CHEK 29 morning Medica l SOFT DEV and 1 Each Branc h LANCETS at noon MISC) and 1 Each in the evening. lancing Yes 1{each} Take 1 Unive rs device/lanc 4-17 Each in [facility] ets 14:20: the [place] (ACCU-CHEK 29 morning Medica l SOFT DEV and 1 Each Branc h LANCETS at noon MISC) and 1 Each in the evening. lancing Yes 1{each} Take 1 Unive rs device/lanc 4-17 Each in [facility] ets 14:20: the [place] (ACCU-CHEK 29 morning Medica l SOFT DEV and 1 Each Branc h LANCETS at noon MISC) and 1 Each in the evening. lancing Yes 1{each} Take 1 Unive rs device/lanc 4-17 Each in ity [facility] ets 14:20: the [place] (ACCU-CHEK 29 morning Medica l SOFT DEV and 1 Each Branc h LANCETS at noon MISC) and 1 Each in the evening. lancing Yes 1{each} Take 1 [facility] 4-17 [facility]: the [place] (ACCU-CHEK 29 morning Medica l SOFT DEV and 1 Each Branc h LANCETS at noon MISC) and 1 Each in the evening. lancing Yes 1{each} Take 1 Unive rs device/lanc 4-17 Each in [facility] ets 14:20: the [place] (ACCU-CHEK 29 morning Medica l SOFT DEV and 1 Each Branc h LANCETS at noon MISC) and 1 Each in the evening. lancing Yes 1{each} Take 1 Unive rs device/lanc 4-17 Each in [facility] ets 14:20: the [place] (ACCU-CHEK 29 morning Medica l SOFT DEV and 1 Each Branc h LANCETS at noon MISC) and 1 Each in the evening. lancing Yes 1{each} Take 1 Unive rs device/lanc 4-17 Each in [facility] ets 14:20: the [place] (ACCU-CHEK 29 morning Medica l SOFT DEV and 1 Each Branc h LANCETS at noon MISC) and 1 Each in the evening. lancing Yes 1{each} Take 1 Unive rs device/lanc 4-17 Each in [facility] ets 14:20: the [place] (ACCU-CHEK 29 morning Medica l SOFT DEV and 1 Each Branc h LANCETS at noon MISC) and 1 Each in the evening. lancing Yes 1{each} Take 1 [facility] 4-17 [facility]: the [place] (ACCU-CHEK 29 morning Medica l SOFT DEV and 1 Each Branc h LANCETS at noon MISC) and 1 Each in the evening. lancing Yes 1{each} Take 1 Unive rs device/lanc 4-17 Each in ity [facility] ets 14:20: the [place] (ACCU-CHEK 29 [...] in ity o f ets 14:20: the [place] (ACCU-CHEK 29 morning Medica l SOFT DEV [...] 1 Unive rs device/lanc 4-17 Each in [facility] ets 14:20: the [place] (ACCU-CHEK 29 morning Medica l SOFT DEV and 1 Each Branc h LANCETS at noon MISC) and 1 Each in the evening. lancing 2022-0 Yes 1{each} Take 1 Unive rs device/lanc 4-17 Each in [facility] ets 14:20: the [place] (ACCU-CHEK 29 morning Medica l SOFT DEV and 1 Each Branc h LANCETS at noon MISC) and 1 Each in the evening. lancing 2022-0 Yes 1{each} Take 1 Unive rs device/lanc 4-17 Each in [facility] 14:20: the [place] (ACCU-CHEK 29 morning Medica l SOFT DEV and 1 Each Branc h LANCETS at noon MISC) and 1 Each in the evening. lisinopriL 2022- No 2.5mg Take 1 Uni vers 2.5 mg 4-17 -17 tablet by ity of tablet 14:01: 00:00 mouth in [place] 18 :00 the Medical morning. Branch gabapentin 2022-2022- No 300mg Take 1 Uni vers 300 mg 4-17 -17 capsule by ity of capsule 14:01: 00:00 mouth in [place] 18 :00 the Medical morning. Branch atorvastati 2022-2022- No 40mg Take 1 Uni vers n 40 mg 4-17 -17 tablet by ity of tablet 14:01: 00:00 mouth at [place] 18 :00 bedtime. Medical Branch apixaban 5 2022-2022- No 5mg Take 1 Univ ers mg tablet 08-05-17 tablet by ity of 14:01: 00:00 mouth [place] 18 :00 every 12 Medical (twelve) Branch hours. metoprolol 2022-0 2022- No 25mg Take 1 Univ ers tartrate 25 -17 -17 tablet by it y of mg tablet 14:01: 00:00 mouth in [facility] 18 :00 the Medical morning Branch and [...] ity of tablet 14:01: 00:00 mouth at [place] 18 :00 bedtime. Medical Branch apixaban 5 2022-0 2023- No 5mg Take 1 Univ ers mg tablet 4-17 04-17 tablet by ity of 14:: 00:00 mouth [place] 18 :00 every 12 Medical (twelve) Branch hours. metoprolol 3-0 3- No 25mg Take 1 Univ ers tartrate 25 4-17 04-17 tablet by it y of mg tablet 14:01: 00:00 mouth in [facility] as 18 :00 the Medical morning Branch [...] ity of tablet 14:01: 00:00 mouth at [place] 18 :00 bedtime. Medical Branch apixaban 5 2022-0 3- No 5mg Take 1 Univ ers mg tablet 4-17 04-17 tablet by ity of 14:01: 00:00 mouth [place] 18 :00 every 12 Medical (twelve) Branch hours. metoprolol 2023-0 2023- No 25mg Take 1 Univ ers tartrate 25 4-17 04-17 tablet by it y of mg tablet 14:01: 00:00 mouth in [facility] as 18 :00 the Medical morning Branch and 1 tablet in the evening. SERTraline 2022- No 25mg Take 1 Univ ers 25 mg 4-17 04-17 tablet by ity of tablet 14:01: 00:00 mouth in [place] 12 :00 the Medical morning. Branch SERTraline 2022- No 25mg Take 1 Univ ers 25 mg 4-17 04-17 tablet by ity of tablet 14:01: 00:00 mouth in [place] 12 :00 the Medical morning. Branch SERTraline 2022- No 25mg Take 1 Univ ers 25 mg 4-17 04-17 tablet by ity of tablet 14:01: 00:00 mouth in [place] 12 :00 the Medical morning. Branch Miscellaneo [...] us Medical 4-17 prosthetic ity of Supply Mis 13:42: s - BKA Suhas as 61 [...] N 22 Unsure of Medi dilshad [place]) what kind Branch of humulin insulin he takes SEMGLEE,INS 2023-0 Yes inject Univ ers ULIN 4-17 under the ity of GLARGINE-YF 13:33: skin. As ECTOR Quintanilla 22 directed Medical Branch insulin NPH 2022-0 Yes inject Univ ers human 4-17 under the ity of isophane 13:33: skin. Abdi (HUMULIN N 22 Unsure of Medi dilshad [place]) what kind Branch of humulin insulin he takes SEMGLEE,INS 3-0 Yes inject Univ ers ULIN 4-17 under the ity of GLARGINE-YF 13:33: skin. As ECTOR Quintanilla 22 directed Medical Branch insulin NPH 2022-0 Yes inject Univ ers human 4-17 under the ity of isophane 13:33: skin. Abdi (HUMULIN N [address] [facility] dilshad [place]) what kind Branch of humulin insulin he takes SEMGLEE,INS 3-0 Yes inject Univ ers ULIN 4-17 under the ity of GLARGINE-YF 13:33: skin. As ECTOR Quintanilla 22 directed Medical Branch insulin NPH 2022-0 Yes inject Univ ers human 4-17 under the ity of isophane 13:33: skin. Abdi (HUMULIN N [address] [facility] dilshad [place]) what kind Branch of humulin insulin he takes SEMGLEE,INS 3-0 Yes inject Univ ers ULIN 4-17 under the ity of GLARGINE-YF 13:33: skin. As ECTOR Quintanilla 22 directed Medical Branch insulin NPH 2022-0 Yes inject Univ ers human 4-17 under the ity of isophane 13:33: skin. Abdi (HUMULIN N [address] [facility] dilshad [place]) what kind Branch of humulin insulin he takes SEMGLEE,INS 2023-0 Yes inject Univ ers ULIN 4-17 under the ity of GLARGINE-YF 13:33: skin. As ECTOR Quintanilla 22 directed Medical Branch insulin NPH 2022-0 Yes inject Univ ers human 4-17 under the ity of isophane 13:33: skin. Abdi (HUMULIN N 22 Unsure of Medi dilshad [place]) what kind Branch of humulin insulin he takes SEMGLEE,INS 2023-0 Yes inject Univ ers ULIN 4-17 under the ity of GLARGINE-YF 13:33: skin. As ECTOR Quintanilla 22 directed Medical Branch insulin NPH 2022-0 Yes inject Univ ers human 4-17 under the ity of isophane 13:33: skin. Abdi (HUMULIN N 22 Unsure of Medi dilshad [place]) what kind Branch of humulin insulin he takes SEMGLEE,INS 2023-0 Yes inject Univ ers ULIN 4-17 under the ity of GLARGINE-YF 13:33: skin. As ECTOR Quintanilla 22 directed Medical Branch insulin NPH 2022-0 Yes inject Univ ers human 4-17 under the ity of isophane 13:33: skin. Abdi (HUMULIN N 22 Unsure of Medi dilshad [place]) what kind Branch of humulin insulin he takes SEMGLEE,INS 2023-0 Yes inject Univ ers ULIN 4-17 under the ity of GLARGINE-YF 13:33: skin. As ECTOR Quintanilla 22 directed Medical Branch insulin NPH 2022-0 Yes inject Univ ers human 4-17 under the ity of isophane 13:33: skin. Abdi (HUMULIN N 22 Unsure of Medi dilshad [place]) what kind Branch of humulin insulin he takes SEMGLEE,INS 2023-0 Yes inject Univ ers ULIN 4-17 under the ity of GLARGINE-YF 13:33: skin. As ECTOR Quintanilla 22 directed Medical Branch insulin NPH 2022-0 Yes inject Univ ers human 4-17 under the ity of isophane 13:33: skin. Abdi (HUMULIN N 22 Unsure of Medi dilshad [place]) what kind Branch of humulin insulin he takes SEMGLEE,INS 2023-0 Yes inject Univ ers ULIN 4-17 under the ity of GLARGINE-YF 13:33: skin. As ECTOR Quintanilla 22 directed Medical Branch insulin NPH 3-0 Yes inject Univ ers human 4-17 under the ity of isophane 13:33: skin. Abdi (HUMULIN N [address] [facility] dilshad [place]) what kind Branch of humulin insulin he takes SEMGLEE,INS 2023-0 Yes inject Univ ers ULIN 4-17 under the ity of GLARGINE-YF 13:33: skin. As ECTOR Quintanilla 22 directed Medical Branch insulin NPH 3-0 Yes inject Univ ers human 4-17 under the ity of isophane 13:33: skin. Abdi (HUMULIN N [address] [facility] dilshad [place]) what kind Branch of humulin insulin he takes SEMGLEE,INS 2023-0 Yes inject Univ ers ULIN 4-17 under the ity of GLARGINE-YF 13:33: skin. As ECTOR Quintanilla 22 directed Medical Branch insulin NPH 2022-0 Yes inject Univ ers human 4-17 under the ity of isophane 13:33: skin. Abdi (HUMULIN N [address] [facility] dilshad [place]) what kind Branch of humulin insulin he takes SEMGLEE,INS 2023-0 Yes inject Univ ers ULIN 4-17 under the ity of GLARGINE-YF 13:33: skin. As ECTOR Quintanilla 22 directed Medical Branch insulin NPH 2022-0 Yes inject Univ ers human 4-17 under the ity of isophane 13:33: skin. Abdi (HUMULIN N [address] [facility] dilshad [place]) what kind Branch of humulin insulin he takes SEMGLEE,INS 2023-0 Yes inject Univ ers ULIN 4-17 under the ity of GLARGINE-YF 13:33: skin. As ECTOR Quintanilla 22 directed Medical Branch insulin NPH 3-0 Yes inject Univ ers human 4-17 under the ity of isophane 13:33: skin. Abdi (HUMULIN N 22 Unsure of Medi dilshad [place]) what kind Branch of humulin insulin he takes SEMGLEE,INS 2023-0 Yes inject Univ ers ULIN 4-17 under the ity of GLARGINE-YF 13:33: skin. As ECTOR Quintanilla 22 directed Medical Branch insulin NPH 2023-0 Yes inject Univ ers human 4-17 under the ity of isophane 13:33: skin. Abdi (HUMULIN N [address] [facility] dilshad [place]) what kind Branch of humulin insulin he takes SEMGLEE,INS 2023-0 Yes inject Univ ers ULIN 4-17 under the ity of GLARGINE-YF 13:33: skin. As ECTOR Quintanilla 22 directed Medical Branch insulin NPH 2022-0 Yes inject Univ ers human 4-17 under the ity of isophane 13:33: skin. Abdi (HUMULIN N 22 Unsure of [facility]) what kind Branch of humulin insulin he takes SEMGLEE,INS 2023-0 Yes inject Univ ers ULIN 4-17 under the ity of GLARGINE-YF 13:33: skin. As ECTOR Quintanilla 22 directed Medical Branch insulin NPH 2022-0 Yes inject Univ ers human 4-17 under the ity of isophane 13:33: skin. Abdi (HUMULIN N 22 Unsure of [facility]) what kind Branch of humulin insulin he takes SEMGLEE,INS 2023-0 Yes inject Univ ers ULIN 4-17 under the ity of GLARGINE-YF 13:33: skin. As ECTOR Quintanilla 22 directed Medical Branch insulin NPH 2022-0 Yes inject Univ ers human 4-17 under the ity of isophane 13:33: skin. Abdi (HUMULIN N 22 Unsure of [facility]) what kind Branch of humulin insulin he takes SEMGLEE,INS 2023-0 Yes inject Univ ers ULIN 4-17 under the ity of GLARGINE-YF 13:33: skin. As ECTOR Quintanilla 22 directed Medical Branch insulin NPH 2022-0 Yes inject Univ ers human 4-17 under the ity of isophane 13:33: skin. Abdi (HUMULIN N 22 Unsure of [facility]) what kind Branch of humulin insulin he takes SEMGLEE,INS 2023-0 Yes inject Univ ers ULIN 4-17 under the ity of GLARGINE-YF 13:33: skin. As ECTOR Quintanilla 22 directed Medical Branch insulin NPH 3-0 Yes inject Univ ers human 4-17 under the ity of isophane 13:33: skin. Abdi (HUMULIN N 22 Unsure of [facility]) what kind Branch of humulin insulin he takes SEMGLEE,INS 2023-0 Yes inject Univ ers ULIN 4-17 under the ity of GLARGINE-YF 13:33: skin. As ECTOR Quintanilla 22 directed Medical Branch insulin NPH 2022-0 Yes inject Univ ers human 4-17 under the ity of isophane 13:33: skin. Abdi (HUMULIN N 22 Unsure of Medi dilshad [place]) what kind Branch of humulin insulin he takes SEMGLEE,INS 2023-0 Yes inject Univ ers ULIN 4-17 under the ity of GLARGINE-YF 13:33: skin. As ECTOR Quintanilla 22 directed Medical Branch insulin NPH 2022-0 Yes inject Univ ers human 4-17 under the ity of isophane 13:33: skin. Abdi (HUMULIN N 22 Unsure of Medi dilshad [place]) what kind Branch of humulin insulin he takes SEMGLEE,INS 2023-0 Yes inject Univ ers ULIN 4-17 under the ity of GLARGINE-YF 13:33: skin. As ECTOR Quintanilla 22 directed Medical Branch insulin NPH 2022-0 Yes inject Univ ers human 4-17 under the ity of isophane 13:33: skin. Abdi (HUMULIN N 22 Unsure of Medi dilshad [place]) what kind Branch of humulin insulin he takes SEMGLEE,INS 2023-0 Yes inject Univ ers ULIN 4-17 under the ity of GLARGINE-YF 13:33: skin. As ECTOR Quintanilla 22 directed Medical Branch insulin NPH 2022-0 Yes inject Univ ers human 4-17 under the ity of isophane 13:33: skin. Abdi (HUMULIN N 22 Unsure of Medi dilshad [place]) what kind Branch of humulin insulin he takes SEMGLEE,INS 2023-0 Yes inject Univ ers ULIN 4-17 under the ity of GLARGINE-YF 13:33: skin. As ECTOR Quintanilla 22 directed Medical Branch insulin NPH 2022-0 Yes inject Univ ers human 4-17 under the ity of isophane 13:33: skin. Abdi (HUMULIN N 22 Unsure of Medi dilshad [place]) what kind Branch of humulin insulin he takes SEMGLEE,INS 2023-0 Yes inject Univ ers ULIN 4-17 under the ity of GLARGINE-YF 13:33: skin. As Rolando craw[place] , [place] 22 directed Medical Branch insulin NPH 2023-0 Yes inject Univ ers human 4-17 under the ity of isophane 13:33: skin. Abdi (HUMULIN N 22 Unsure of Medi dilshad [place]) what kind Branch of humulin insulin he takes insulin NPH 2023-0 Yes inject Univ ers human 4-17 under the ity of isophane 13:33: skin. Abdi (HUMULIN N 22 Unsure of Medi dilshad [place]) what kind Branch of humulin insulin he takes insulin NPH 2023-0 Yes inject Univ ers human 4-17 under the ity of isophane 13:33: skin. Abdi (HUMULIN N 22 Unsure of Medi dilshad [place]) what kind Branch of humulin insulin he takes insulin NPH 2023-0 Yes inject Univ ers human 4-17 under the ity of isophane 13:33: skin. Abdi (HUMULIN N 22 Unsure of Medi dilshad [place]) what kind Branch of humulin insulin he takes insulin NPH 2023-0 Yes inject Univ ers human 4-17 under the ity of isophane 13:33: skin. Abdi (HUMULIN N 22 Unsure of Medi dilshad [place]) what kind Branch of humulin insulin he takes insulin NPH 2023-0 Yes inject Univ ers human 4-17 under the ity of isophane 13:33: skin. Abdi (HUMULIN N 22 Unsure of Medi dilshad [place]) what kind Branch of humulin insulin he takes insulin NPH 2023-0 Yes inject Univ ers human 4-17 under the ity of isophane 13:33: skin. Abdi (HUMULIN N 22 Unsure of Medi dilshad [place]) what kind Branch of humulin insulin he takes insulin NPH 2023-0 Yes inject Univ ers human 4-17 under the ity of isophane 13:33: skin. Abdi (HUMULIN N 22 Unsure of Medi dilshad [place]) what kind Branch of humulin insulin he takes cephALEXin 2023-0 Yes 500mg Take 1 Univ ers 500 mg 4-17 capsule by ity of capsule 13:23: mouth 4 [place] 56 (four) Medical times Branch daily. cephALEXin 2023-0 Yes 500mg Take 1 Univ ers 500 mg 4-17 capsule by ity of capsule 13:23: mouth 4 [place] [address] (four) Medical times Branch daily. cephALEXin 2023-0 Yes 500mg Take 1 Univ ers 500 mg 4-17 capsule by ity of capsule 13:23: mouth 4 [place] 56 (four) Medical times Branch daily. cephALEXin 2023-0 Yes 500mg Take 1 Univ ers 500 mg 4-17 capsule by ity of capsule 13:23: mouth 4 [place] 56 (four) Medical times Branch daily. cephALEXin 2023-0 Yes 500mg Take 1 Univ ers 500 mg 4-17 capsule by ity of capsule 13:23: mouth 4 [place] 56 (four) Medical times Branch daily. cephALEXin 2023-0 Yes 500mg Take 1 Univ ers 500 mg 4-17 capsule by ity of capsule 13:23: mouth 4 [place] 56 (four) Medical times Branch daily. cephALEXin 2023-0 Yes 500mg Take 1 Univ ers 500 mg 4-17 capsule by ity of capsule 13:23: mouth 4 [place] [address] (four) Medical times Branch daily. cephALEXin 2023-0 Yes 500mg Take 1 Univ ers 500 mg 4-17 capsule by ity of capsule 13:23: mouth 4 [place] [address] (four) Medical times Branch daily. cephALEXin 2023-0 Yes 500mg Take 1 Univ ers 500 mg 4-17 capsule by ity of capsule 13:23: mouth 4 [place] [address] (four) Medical times Branch daily. cephALEXin 2023-0 Yes 500mg Take 1 Univ ers 500 mg 4-17 capsule by ity of capsule 13:23: mouth 4 [place] [address] (four) Medical times Branch daily. cephALEXin 2023-0 Yes 500mg Take 1 Univ ers 500 mg 4-17 capsule by ity of capsule 13:23: mouth 4 [place] [address] (four) Medical times Branch daily. cephALEXin 2023-0 Yes 500mg Take 1 Univ ers 500 mg 4-17 capsule by ity of capsule 13:23: mouth 4 [place] [address] (four) Medical times Branch daily. cephALEXin 2023-0 Yes 500mg Take 1 Univ ers 500 mg 4-17 capsule by ity of capsule 13:23: mouth 4 [place] 56 (four) Medical times Branch daily. cephALEXin 2023-0 Yes 500mg Take 1 Univ ers 500 mg 4-17 capsule by ity of capsule 13:23: mouth 4 [place] [address] (four) Medical times Branch daily. cephALEXin 2023-0 Yes 500mg Take 1 Univ ers 500 mg 4-17 capsule by ity of capsule 13:23: mouth 4 [place] [address] ([facility]) Medical times Branch daily. cephALEXin 2023-0 Yes 500mg Take 1 [facility] ers 500 mg 4-17 capsule by ity of capsule 13:23: mouth 4 [place] [address] ([facility]) Medical times Branch daily. cephALEXin 2023-0 Yes 500mg Take 1 Univ ers 500 mg 4-17 capsule by ity of capsule 13:23: mouth 4 [place] [address] (four) Medical times Branch daily. cephALEXin 2023-0 Yes 500mg Take 1 Univ ers 500 mg 4-17 capsule by ity of capsule 13:23: mouth 4 [place] [address] (four) Medical times Branch daily. cephALEXin 2023-0 Yes 500mg Take 1 [facility] ers 500 mg 4-17 capsule by ity of capsule 13:23: mouth 4 [place] [address] ([facility]) Medical times Branch daily. cephALEXin 2023-0 Yes 500mg Take 1 [facility] ers 500 mg 4-17 capsule by ity of capsule 13:23: mouth 4 [place] [address] ([facility]) Medical times Branch daily. cephALEXin 2023-0 Yes 500mg Take 1 [facility] ers 500 mg 4-17 capsule by ity of capsule 13:23: mouth 4 [place] [address] ([facility]) Medical times Branch daily. cephALEXin 2023-0 Yes 500mg Take 1 [facility] ers 500 mg 4-17 capsule by ity of capsule 13:23: mouth 4 [place] [address] ([facility]) Medical times Branch daily. cephALEXin 2023-0 Yes 500mg Take 1 [facility] ers 500 mg 4-17 capsule by ity of capsule 13:23: mouth 4 [place] [address] ([facility]) Medical times Branch daily. gabapentin 2023-0 Yes [id number] 300mg Take 1 [facility] 300 mg 4-17 capsule by ity of capsule 00:00: mouth in [place] [address] the Medical morning Branch and 1 capsule at noon and 1 capsule in the evening. amiodarone 2023-0 Yes [id number] 200mg Take 1 [facility] 200 mg 4-17 tablet by ity of tablet 00:00: mouth in [place] [address] the Medical morning. Branch apixaban 5 2022-0 Yes 5mg Take 1 Unive rs mg tablet 4-17 tablet by ity o f 00:00: mouth in [place] [address] the Medical morning Branch and 1 tablet in the evening. Indication s: ATRIAL FIBRILLATI ON atorvastati Yes [id number] 40mg Take 1 [facility] n 40 mg 4-17 tablet by ity of tablet 00:00: mouth at [place] [address] bedtime. Medical Branch SERTraline Yes [id number] 100mg Take 1 [facility] 100 mg 4-17 tablet by ity of tablet 00:00: mouth in [place] 00 the morning. Branch lisinopriL Yes [id number] 2.5mg Take 1 [facility] 2.5 mg 4-17 tablet by ity of tablet 00:00: mouth in [place] 00 the morning. Branch metoprolol Yes [id number] 25mg Take 1 U nivers tartrate 25 4-17 tablet by ity of mg tablet 00:00: mouth in [facility] the morning Branch and 1 tablet in the evening. blood sugar Yes [id number] Check U nivers diagnostic 4-17 blood ity of strip 00:00: sugar 2 [place] 00 times a Medical day. Branch E11.9. Brand per insurance. Uses ACCU-CHEK machine Lancets Yes [id number] Check Unive rs Misc 4-17 blood ity of 00:00: sugar 2 [place] 00 times a Medical day. Branch E11.9. Brand per insurance. gabapentin Yes [id number] 300mg Take 1 [facility] 300 mg 4-17 capsule by ity of capsule 00:00: mouth in [place] the morning Branch and 1 capsule at noon and 1 capsule in the evening. amiodarone Yes [id number] 200mg Take 1 [facility] 200 mg 4-17 tablet by ity of tablet 00:00: mouth in [place] 00 the morning. Branch apixaban 5 Yes 5mg Take 1 Unive rs mg tablet 4-17 tablet by ity o f 00:00: mouth in [place] the morning Branch and 1 tablet in the evening. Indication s: ATRIAL FIBRILLATI ON atorvastati Yes [id number] 40mg Take 1 [facility] n 40 mg 4-17 tablet by ity of tablet 00:00: mouth at [place] [address] bedtime. Medical Branch SERTraline Yes [id number] 100mg Take 1 [facility] 100 mg 4-17 tablet by ity of tablet 00:00: mouth in [place] 00 the morning. Branch lisinopriL 0 Yes [id number] 2.5mg Take 1 [facility] 2.5 mg 4-17 tablet by ity of tablet 00:00: mouth in [place] the morning. Branch metoprolol 2022-0 Yes [id number] 25mg Take 1 U nivers tartrate 25 4-17 tablet by ity of mg tablet 00:00: mouth in [facility] the morning Branch and 1 tablet in the evening. blood sugar 2022-0 Yes [id number] Check U nivers diagnostic 4-17 blood ity of strip 00:00: sugar 2 [place] times a Medical day. Branch E11.9. Brand per insurance. Uses ACCU-CHEK machine Lancets Yes [id number] Check Unive rs Misc 4-17 blood ity of 00:00: sugar 2 [place] times a Medical day. Branch E11.9. Brand per insurance. gabapentin Yes [id number] 300mg Take 1 [facility] 300 mg 4-17 capsule by ity of capsule 00:00: mouth in [place] the morning Branch and 1 capsule at noon and 1 capsule in the evening. amiodarone 0 Yes [id number] 200mg Take 1 [facility] 200 mg 4-17 tablet by ity of tablet 00:00: mouth in [place] the morning. Branch apixaban 5 0 Yes 5mg Take 1 Unive rs mg tablet 4-17 tablet by ity o f 00:00: mouth in [place] the Branch and 1 tablet in the evening. Indication s: ATRIAL FIBRILLATI ON atorvastati 2022-0 Yes [id number] 40mg Take 1 [facility] n 40 mg 4-17 tablet by ity of tablet 00:00: mouth at [place] [address] bedtime. Medical Branch SERTraline 2022-0 Yes [id number] 100mg Take 1 [facility] 100 mg 4-17 tablet by ity of tablet 00:00: mouth in [place] the morning. Branch lisinopriL 2022-0 Yes [id number] 2.5mg Take 1 [facility] 2.5 mg 4-17 tablet by ity of tablet 00:00: mouth in [place] [address] the morning. Branch metoprolol 2022-0 Yes [id number] 25mg Take 1 U nivers tartrate 25 4-17 tablet by ity of mg tablet 00:00: mouth in [facility] s 00 the Medical morning Branch and 1 tablet in the evening. blood sugar Yes [id number] Check U nivers diagnostic 4-17 blood ity of strip 00:00: sugar 2 [place] 00 times a Medical day. Branch E11.9. Brand per insurance. Uses ACCU-CHEK machine Lancets Yes [id number] Check Unive rs Misc 4-17 blood ity of 00:00: sugar 2 [place] times a Medical day. Branch E11.9. Brand per insurance. gabapentin Yes [id number] 300mg Take 1 [facility] 300 mg 4-17 capsule by ity of capsule 00:00: mouth in [place] the morning Branch and 1 capsule at noon and 1 capsule in the evening. amiodarone Yes [id number] 200mg Take 1 [facility] 200 mg 4-17 tablet by ity of tablet 00:00: mouth in [place] 00 the morning. Branch apixaban 5 Yes 5mg Take 1 Unive rs mg tablet 4-17 tablet by ity o f 00:00: mouth in [place] the morning Branch and 1 tablet in the evening. Indication s: ATRIAL FIBRILLATI ON atorvastati Yes [id number] 40mg Take 1 [facility] n 40 mg 4-17 tablet by ity of tablet 00:00: mouth at [place] 00 bedtime. Medical Branch SERTraline Yes [id number] 100mg Take 1 [facility] 100 mg 4-17 tablet by ity of tablet 00:00: mouth in [place] 00 the morning. Branch lisinopriL Yes [id number] 2.5mg Take 1 [facility] 2.5 mg 4-17 tablet by ity of tablet 00:00: mouth in [place] 00 the Medical morning. Branch metoprolol Yes [id number] 25mg Take 1 U nivers tartrate 25 4-17 tablet by ity of mg tablet 00:00: mouth in [facility] s 00 the morning Branch and 1 tablet in the evening. blood sugar 0 Yes [id number] Check U nivers diagnostic 4-17 blood ity of strip 00:00: sugar 2 [place] 00 times a Medical day. Branch E11.9. Brand per insurance. Uses ACCU-CHEK machine Lancets Yes [id number] Check Unive rs Misc 4-17 blood ity of 00:00: sugar 2 [place] times a Medical day. Branch E11.9. Brand per insurance. gabapentin Yes [id number] 300mg Take 1 [facility] 300 mg 4-17 capsule by ity of capsule 00:00: mouth in [place] 00 the Medical morning Branch and 1 capsule at noon and 1 capsule in the evening. amiodarone Yes [id number] 200mg Take 1 [facility] 200 mg 4-17 tablet by ity of tablet 00:00: mouth in [place] 00 the morning. Branch apixaban 5 Yes 5mg Take 1 Unive rs mg tablet 4-17 tablet by ity o f 00:00: mouth in [place] 00 the Medical morning Branch and 1 tablet in the evening. Indication s: ATRIAL FIBRILLATI ON atorvastati Yes [id number] 40mg Take 1 [facility] n 40 mg 4-17 tablet by ity of tablet 00:00: mouth at [place] [address] bedtime. Medical Branch SERTraline Yes [id number] 100mg Take 1 [facility] 100 mg 4-17 tablet by ity of tablet 00:00: mouth in [place] the morning. Branch lisinopriL Yes [id number] 2.5mg Take 1 [facility] 2.5 mg 4-17 tablet by ity of tablet 00:00: mouth in [place] the morning. Branch metoprolol Yes [id number] 25mg Take 1 U nivers tartrate 25 4-17 tablet by ity of mg tablet 00:00: mouth in [facility] the Medical morning Branch and 1 tablet in the evening. blood sugar Yes [id number] Check U nivers diagnostic 4-17 blood ity of strip 00:00: sugar 2 [place] 00 times a Medical day. Branch E11.9. Brand per insurance. Uses ACCU-CHEK machine Lancets Yes [id number] Check Unive rs Misc 4-17 blood ity of 00:00: sugar 2 [place] 00 times a Medical day. Branch E11.9. Brand per insurance. gabapentin Yes [id number] 300mg Take 1 [facility] 300 mg 4-17 capsule by ity of capsule 00:00: mouth in [place] 00 the Medical morning Branch and 1 capsule at noon and 1 capsule in the evening. amiodarone Yes [id number] 200mg Take 1 [facility] 200 mg 4-17 tablet by ity of tablet 00:00: mouth in [place] the morning. Branch apixaban 5 0 Yes 5mg Take 1 Un[facility] rs mg tablet 4-17 tablet by ity o f 00:00: mouth in [place] the morning Branch and 1 tablet in the evening. Indication s: ATRIAL FIBRILLATI ON atorvastati 2022-0 Yes [id number] 40mg Take 1 [facility] n 40 mg 4-17 tablet by ity of tablet 00:00: mouth at [place] [address] bedtime. Medical Branch SERTraline Yes [id number] 100mg Take 1 [facility] 100 mg 4-17 tablet by ity of tablet 00:00: mouth in [place] the morning. Branch lisinopriL Yes [id number] 2.5mg Take 1 [facility] 2.5 mg 4-17 tablet by ity of tablet 00:00: mouth in [place] the morning. Branch metoprolol Yes [id number] 25mg Take 1 U nivers tartrate 25 4-17 tablet by ity of mg tablet 00:00: mouth in [facility] the morning Branch and 1 tablet in the evening. blood sugar 0 Yes [id number] Check U nivers diagnostic 4-17 blood ity of strip 00:00: sugar 2 [place] 00 times a Medical day. Branch E11.9. Brand per insurance. Uses ACCU-CHEK machine Lancets Yes [id number] Check Unive rs Misc 4-17 blood ity of 00:00: sugar 2 [place] [address] times a Medical day. Branch E11.9. Brand per insurance. gabapentin 0 Yes [id number] 300mg Take 1 [facility] 300 mg 4-17 capsule by ity of capsule 00:00: mouth in [place] the morning Branch and 1 capsule at noon and 1 capsule in the evening. amiodarone 2022-0 Yes [id number] 200mg Take 1 [facility] 200 mg 4-17 tablet by ity of tablet 00:00: mouth in [place] [address] the morning. Branch apixaban 5 0 Yes 5mg Take 1 Unive rs mg tablet 4-17 tablet by ity o f 00:00: mouth in [place] 00 the Medical morning Branch and 1 tablet in the evening. Indication s: ATRIAL FIBRILLATI ON atorvastati Yes [id number] 40mg Take 1 [facility] n 40 mg 4-17 tablet by ity of tablet 00:00: mouth at [place] [address] bedtime. Medical Branch SERTraline Yes [id number] 100mg Take 1 [facility] 100 mg 4-17 tablet by ity of tablet 00:00: mouth in [place] 00 the morning. Branch lisinopriL Yes [id number] 2.5mg Take 1 Univers 2.5 mg 4-17 tablet by ity of tablet 00:00: mouth in [place] 00 the morning. Branch metoprolol Yes [id number] 25mg Take 1 U nivers tartrate 25 4-17 tablet by ity of mg tablet 00:00: mouth in [facility] 00 the morning Branch and 1 tablet in the evening. blood sugar Yes [id number] Check U nivers diagnostic 4-17 blood ity of strip 00:00: sugar 2 [place] 00 times a Medical day. Branch E11.9. Brand per insurance. Uses ACCU-CHEK machine Lancets Yes [id number] Check Unive rs Misc 4-17 blood ity of 00:00: sugar 2 [place] 00 times a Medical day. Branch E11.9. Brand per insurance. gabapentin Yes [id number] 300mg Take 1 [facility] 300 mg 4-17 capsule by ity of capsule 00:00: mouth in [place] 00 the morning Branch and 1 capsule at noon and 1 capsule in the evening. amiodarone Yes [id number] 200mg Take 1 [facility] 200 mg 4-17 tablet by ity of tablet 00:00: mouth in [place] 00 the morning. Branch apixaban 5 0 Yes 5mg Take 1 Unive rs mg tablet 4-17 tablet by ity o f 00:00: mouth in [place] 00 the morning Branch and 1 tablet in the evening. Indication s: ATRIAL FIBRILLATI ON atorvastati Yes [id number] 40mg Take 1 [facility] n 40 mg 4-17 tablet by ity of tablet 00:00: mouth at [place] 00 bedtime. Medical Branch SERTraline Yes [id number] 100mg Take 1 [facility] 100 mg 4-17 tablet by ity of tablet 00:00: mouth in [place] the morning. Branch lisinopriL Yes [id number] 2.5mg Take 1 Univers 2.5 mg 4-17 tablet by ity of tablet 00:00: mouth in [place] the morning. Branch metoprolol Yes [id number] 25mg Take 1 U nivers tartrate 25 4-17 tablet by ity of mg tablet 00:00: mouth in [facility] the morning Branch and 1 tablet in the evening. blood sugar Yes [id number] Check U nivers diagnostic 4-17 blood ity of strip 00:00: sugar 2 [place] times a Medical day. Branch E11.9. Brand per insurance. Uses ACCU-CHEK machine Lancets Yes [id number] Check Unive rs Misc 4-17 blood ity of 00:00: sugar 2 [place] times a Medical day. Branch E11.9. Brand per insurance. gabapentin Yes [id number] 300mg Take 1 [facility] 300 mg 4-17 capsule by ity of capsule 00:00: mouth in [place] the morning Branch and 1 capsule at noon and 1 capsule in the evening. amiodarone Yes [id number] 200mg Take 1 [facility] 200 mg 4-17 tablet by ity of tablet 00:00: mouth in [place] the morning. Branch apixaban 5 0 Yes 5mg Take 1 Unive rs mg tablet 4-17 tablet by ity o f 00:00: mouth in [place] the morning Branch and 1 tablet in the evening. Indication s: ATRIAL FIBRILLATI ON atorvastati Yes [id number] 40mg Take 1 [facility] n 40 mg 4-17 tablet by ity of tablet 00:00: mouth at [place] [address] bedtime. Medical Branch SERTraline Yes [id number] 100mg Take 1 [facility] 100 mg 4-17 tablet by ity of tablet 00:00: mouth in [place] 00 the morning. Branch lisinopriL 0 Yes [id number] 2.5mg Take 1 Univers 2.5 mg 4-17 tablet by ity of tablet 00:00: mouth in [place] the morning. Branch metoprolol 2022-0 Yes [id number] 25mg Take 1 U nivers tartrate 25 4-17 tablet by ity of mg tablet 00:00: mouth in [facility] the morning Branch and 1 tablet in the evening. blood sugar 2022-0 Yes [id number] Check U nivers diagnostic 4-17 blood ity of strip 00:00: sugar 2 [place] times a Medical day. Branch E11.9. Brand per insurance. Uses ACCU-CHEK machine Lancets 2022-0 Yes [id number] Check Unive rs Misc 4-17 blood ity of 00:00: sugar 2 [place] times a Medical day. Branch E11.9. Brand per insurance. gabapentin 2022-0 Yes [id number] 300mg Take 1 [facility] 300 mg 4-17 capsule by ity of capsule 00:00: mouth in [place] the morning Branch and 1 capsule at noon and 1 capsule in the evening. amiodarone 2022-0 Yes [id number] 200mg Take 1 [facility] 200 mg 4-17 tablet by ity of tablet 00:00: mouth in [place] the morning. Branch apixaban 5 2022-0 Yes 5mg Take 1 Unive rs mg tablet 4-17 tablet by ity o f 00:00: mouth in [place] the morning Branch and 1 tablet in the evening. Indication s: ATRIAL FIBRILLATI ON atorvastati 2022-0 Yes [id number] 40mg Take 1 Univers n 40 mg 4-17 tablet by ity of tablet 00:00: mouth at [place] [address] bedtime. Medical Branch SERTraline 2022-0 Yes [id number] 100mg Take 1 [facility] 100 mg 4-17 tablet by ity of tablet 00:00: mouth in [place] the morning. Branch lisinopriL 2022-0 Yes [id number] 2.5mg Take 1 Univers 2.5 mg 4-17 tablet by ity of tablet 00:00: mouth in [place] the morning. Branch metoprolol 2022-0 Yes [id number] 25mg Take 1 U nivers tartrate 25 4-17 tablet by ity of mg tablet 00:00: mouth in [facility] the morning Branch and 1 tablet in the evening. blood sugar 2022-0 Yes [id number] Check U nivers diagnostic 4-17 blood ity of strip 00:00: sugar 2 [place] 00 times a Medical day. Branch E11.9. Brand per insurance. Uses ACCU-CHEK machine Lancets Yes [id number] Check Unive rs Misc 4-17 blood ity of 00:00: sugar 2 [place] 00 times a Medical day. Branch E11.9. Brand per insurance. gabapentin Yes [id number] 300mg Take 1 [facility] 300 mg 4-17 capsule by ity of capsule 00:00: mouth in [place] 00 the Medical morning Branch and 1 capsule at noon and 1 capsule in the evening. amiodarone Yes [id number] 200mg Take 1 [facility] 200 mg 4-17 tablet by ity of tablet 00:00: mouth in [place] 00 the morning. Branch apixaban 5 Yes 5mg Take 1 Unive rs mg tablet 4-17 tablet by ity o f 00:00: mouth in [place] 00 the morning Branch and 1 tablet in the evening. Indication s: ATRIAL FIBRILLATI ON atorvastati Yes [id number] 40mg Take 1 Univers n 40 mg 4-17 tablet by ity of tablet 00:00: mouth at [place] 00 bedtime. Medical Branch SERTraline Yes [id number] 100mg Take 1 [facility] 100 mg 4-17 tablet by ity of tablet 00:00: mouth in [place] 00 the morning. Branch lisinopriL Yes [id number] 2.5mg Take 1 Univers 2.5 mg 4-17 tablet by ity of tablet 00:00: mouth in [place] 00 the Medical morning. Branch metoprolol Yes [id number] 25mg Take 1 U nivers tartrate 25 4-17 tablet by ity of mg tablet 00:00: mouth in [facility] 00 the Medical morning Branch and 1 tablet in the evening. blood sugar Yes [id number] Check U nivers diagnostic 4-17 blood ity of strip 00:00: sugar 2 [place] 00 times a Medical day. Branch E11.9. Brand per insurance. Uses ACCU-CHEK machine Lancets 0 Yes [id number] Check Unive rs Misc 4-17 blood ity of 00:00: sugar 2 [place] 00 times a Medical day. Branch E11.9. Brand per insurance. gabapentin 2022-0 Yes [id number] 300mg Take 1 [facility] 300 mg 4-17 capsule by ity of capsule 00:00: mouth in [place] 00 the morning Branch and 1 capsule at noon and 1 capsule in the evening. amiodarone 2022-0 Yes [id number] 200mg Take 1 [facility] 200 mg 4-17 tablet by ity of tablet 00:00: mouth in [place] 00 the morning. Branch apixaban 5 2022-0 Yes 5mg Take 1 Unive rs mg tablet 4-17 tablet by ity o f 00:00: mouth in [place] 00 the morning Branch and 1 tablet in the evening. Indication s: ATRIAL FIBRILLATI ON atorvastati 2022-0 Yes [id number] 40mg Take 1 Univers n 40 mg 4-17 tablet by ity of tablet 00:00: mouth at [place] [address] bedtime. Medical Branch SERTraline 0 Yes [id number] 100mg Take 1 [facility] 100 mg 4-17 tablet by ity of tablet 00:00: mouth in [place] 00 the morning. Branch lisinopriL Yes [id number] 2.5mg Take 1 Univers 2.5 mg 4-17 tablet by ity of tablet 00:00: mouth in [place] 00 the morning. Branch metoprolol 0 Yes [id number] 25mg Take 1 U nivers tartrate 25 4-17 tablet by ity of mg tablet 00:00: mouth in [facility] 00 the morning Branch and 1 tablet in the evening. blood sugar 2022-0 Yes [id number] Check U nivers diagnostic 4-17 blood ity of strip 00:00: sugar 2 [place] 00 times a Medical day. Branch E11.9. Brand per insurance. Uses ACCU-CHEK machine Lancets 2022-0 Yes [id number] Check Unive rs Misc 4-17 blood ity of 00:00: sugar 2 [place] 00 times a Medical day. Branch E11.9. Brand per insurance. gabapentin 2022-0 Yes [id number] 300mg Take 1 [facility] 300 mg 4-17 capsule by ity of capsule 00:00: mouth in [place] 00 the Medical morning Branch and 1 capsule at noon and 1 capsule in the evening. amiodarone 2022-0 Yes [id number] 200mg Take 1 [facility] 200 mg 4-17 tablet by ity of tablet 00:00: mouth in [place] 00 the morning. Branch apixaban 5 0 Yes 5mg Take 1 Unive rs mg tablet 4-17 tablet by ity o f 00:00: mouth in [place] the morning Branch and 1 tablet in the evening. Indication s: ATRIAL FIBRILLATI ON atorvastati Yes [id number] 40mg Take 1 [facility] n 40 mg 4-17 tablet by ity of tablet 00:00: mouth at [place] [address] bedtime. Medical Branch SERTraline Yes [id number] 100mg Take 1 [facility] 100 mg 4-17 tablet by ity of tablet 00:00: mouth in [place] 00 the morning. Branch lisinopriL Yes [id number] 2.5mg Take 1 Univers 2.5 mg 4-17 tablet by ity of tablet 00:00: mouth in [place] 00 the morning. Branch metoprolol Yes [id number] 25mg Take 1 U nivers tartrate 25 4-17 tablet by ity of mg tablet 00:00: mouth in [facility] 00 the morning Branch and 1 tablet in the evening. blood sugar Yes [id number] Check U nivers diagnostic 4-17 blood ity of strip 00:00: sugar 2 [place] 00 times a Medical day. Branch E11.9. Brand per insurance. Uses ACCU-CHEK machine Lancets Yes [id number] Check Unive rs Misc 4-17 blood ity of 00:00: sugar 2 [place] 00 times a Medical day. Branch E11.9. Brand per insurance. gabapentin Yes [id number] 300mg Take 1 [facility] 300 mg 4-17 capsule by ity of capsule 00:00: mouth in [place] the morning Branch and 1 capsule at noon and 1 capsule in the evening. amiodarone Yes [id number] 200mg Take 1 [facility] 200 mg 4-17 tablet by ity of tablet 00:00: mouth in [place] 00 the morning. Branch apixaban 5 0 Yes 5mg Take 1 Unive rs mg tablet 4-17 tablet by ity o f 00:00: mouth in [place] the morning Branch and 1 tablet in the evening. Indication s: ATRIAL FIBRILLATI ON atorvastati Yes [id number] 40mg Take 1 [facility] n 40 mg 4-17 tablet by ity of tablet 00:00: mouth at [place] [address] bedtime. Medical Branch SERTraline Yes [id number] 100mg Take 1 [facility] 100 mg 4-17 tablet by ity of tablet 00:00: mouth in [place] the morning. Branch lisinopriL Yes [id number] 2.5mg Take 1 Univers 2.5 mg 4-17 tablet by ity of tablet 00:00: mouth in [place] the morning. Branch metoprolol Yes [id number] 25mg Take 1 U nivers tartrate 25 4-17 tablet by ity of mg tablet 00:00: mouth in [facility] the morning Branch and 1 tablet in the evening. blood sugar Yes [id number] Check U nivers diagnostic 4-17 blood ity of strip 00:00: sugar 2 [place] 00 times a Medical day. Branch E11.9. Brand per insurance. Uses ACCU-CHEK machine Lancets Yes [id number] Check Unive rs Misc 4-17 blood ity of 00:00: sugar 2 [place] 00 times a Medical day. Branch E11.9. Brand per insurance. gabapentin Yes [id number] 300mg Take 1 [facility] 300 mg 4-17 capsule by ity of capsule 00:00: mouth in [place] the morning Branch and 1 capsule at noon and 1 capsule in the evening. amiodarone Yes [id number] 200mg Take 1 [facility] 200 mg 4-17 tablet by ity of tablet 00:00: mouth in [place] the morning. Branch apixaban 5 Yes 5mg Take 1 Unive rs mg tablet 4-17 tablet by ity o f 00:00: mouth in [place] the morning Branch and 1 tablet in the evening. Indication s: ATRIAL FIBRILLATI ON atorvastati Yes [id number] 40mg Take 1 [facility] n 40 mg 4-17 tablet by ity of tablet 00:00: mouth at [place] [address] bedtime. Medical Branch SERTraline Yes [id number] 100mg Take 1 [facility] 100 mg 4-17 tablet by ity of tablet 00:00: mouth in [place] 00 the morning. Branch lisinopriL 0 Yes [id number] 2.5mg Take 1 Univers 2.5 mg 4-17 tablet by ity of tablet 00:00: mouth in [place] the morning. Branch metoprolol 2022-0 Yes [id number] 25mg Take 1 U nivers tartrate 25 4-17 tablet by ity of mg tablet 00:00: mouth in [facility] the morning Branch and 1 tablet in the evening. blood sugar 2022-0 Yes [id number] Check U nivers diagnostic 4-17 blood ity of strip 00:00: sugar 2 [place] times a Medical day. Branch E11.9. Brand per insurance. Uses ACCU-CHEK machine Lancets Yes [id number] Check Unive rs Misc 4-17 blood ity of 00:00: sugar 2 [place] times a Medical day. Branch E11.9. Brand per insurance. gabapentin Yes [id number] 300mg Take 1 [facility] 300 mg 4-17 capsule by ity of capsule 00:00: mouth in [place] the morning Branch and 1 capsule at noon and 1 capsule in the evening. amiodarone 0 Yes [id number] 200mg Take 1 [facility] 200 mg 4-17 tablet by ity of tablet 00:00: mouth in [place] the morning. Branch apixaban 5 0 Yes 5mg Take 1 Unive rs mg tablet 4-17 tablet by ity o f 00:00: mouth in [place] the morning Branch and 1 tablet in the evening. Indication s: ATRIAL FIBRILLATI ON atorvastati 2022-0 Yes [id number] 40mg Take 1 [facility] n 40 mg 4-17 tablet by ity of tablet 00:00: mouth at [place] [address] bedtime. Medical Branch SERTraline 2022-0 Yes [id number] 100mg Take 1 [facility] 100 mg 4-17 tablet by ity of tablet 00:00: mouth in [place] the morning. Branch lisinopriL 2022-0 Yes [id number] 2.5mg Take 1 [facility] 2.5 mg 4-17 tablet by ity of tablet 00:00: mouth in [place] [address] the morning. Branch metoprolol 2022-0 Yes [id number] 25mg Take 1 U nivers tartrate 25 4-17 tablet by ity of mg tablet 00:00: mouth in [facility] s the morning Branch and 1 tablet in the evening. blood sugar 0 Yes [id number] Check U nivers diagnostic 4-17 blood ity of strip 00:00: sugar 2 [place] times a Medical day. Branch E11.9. Brand per insurance. Uses ACCU-CHEK machine Lancets 0 Yes [id number] Check Unive rs Misc 4-17 blood ity of 00:00: sugar 2 [place] times a Medical day. Branch E11.9. Brand per insurance. gabapentin Yes [id number] 300mg Take 1 [facility] 300 mg 4-17 capsule by ity of capsule 00:00: mouth in [place] the morning Branch and 1 capsule at noon and 1 capsule in the evening. amiodarone Yes [id number] 200mg Take 1 [facility] 200 mg 4-17 tablet by ity of tablet 00:00: mouth in [place] the morning. Branch apixaban 5 Yes 5mg Take 1 Unive rs mg tablet 4-17 tablet by ity o f 00:00: mouth in [place] the morning Branch and 1 tablet in the evening. Indication s: ATRIAL FIBRILLATI ON atorvastati Yes [id number] 40mg Take 1 Univers n 40 mg 4-17 tablet by ity of tablet 00:00: mouth at [place] [address] bedtime. Medical Branch SERTraline Yes [id number] 100mg Take 1 [facility] 100 mg 4-17 tablet by ity of tablet 00:00: mouth in [place] the morning. Branch lisinopriL Yes [id number] 2.5mg Take 1 Univers 2.5 mg 4-17 tablet by ity of tablet 00:00: mouth in [place] 00 the Medical morning. Branch metoprolol 0 Yes [id number] 25mg Take 1 U nivers tartrate 25 4-17 tablet by ity of mg tablet 00:00: mouth in [facility] 00 the morning Branch and 1 tablet in the evening. blood sugar 2022-0 Yes [id number] Check U nivers diagnostic 4-17 blood ity of strip 00:00: sugar 2 [place] 00 times a Medical day. Branch E11.9. Brand per insurance. Uses ACCU-CHEK machine Lancets Yes [id number] Check Unive rs Misc 4-17 blood ity of 00:00: sugar 2 [place] times a Medical day. Branch E11.9. Brand per insurance. gabapentin Yes [id number] 300mg Take 1 Univers 300 mg 4-17 capsule by ity of capsule 00:00: mouth in [place] 00 the Medical morning Branch and 1 capsule at noon and 1 capsule in the evening. amiodarone Yes [id number] 200mg Take 1 [facility] 200 mg 4-17 tablet by ity of tablet 00:00: mouth in [place] the morning. Branch apixaban 5 Yes 5mg Take 1 Unive rs mg tablet 4-17 tablet by ity o f 00:00: mouth in [place] the morning Branch and 1 tablet in the evening. Indication s: ATRIAL FIBRILLATI ON atorvastati Yes [id number] 40mg Take 1 [facility] n 40 mg 4-17 tablet by ity of tablet 00:00: mouth at [place] [address] bedtime. Medical Branch SERTraline Yes [id number] 100mg Take 1 [facility] 100 mg 4-17 tablet by ity of tablet 00:00: mouth in [place] the morning. Branch lisinopriL Yes [id number] 2.5mg Take 1 Univers 2.5 mg 4-17 tablet by ity of tablet 00:00: mouth in [place] the morning. Branch metoprolol Yes [id number] 25mg Take 1 U nivers tartrate 25 4-17 tablet by ity of mg tablet 00:00: mouth in [facility] 00 the Medical morning Branch and 1 tablet in the evening. blood sugar Yes [id number] Check U nivers diagnostic 4-17 blood ity of strip 00:00: sugar 2 [place] 00 times a Medical day. Branch E11.9. Brand per insurance. Uses ACCU-CHEK machine Lancets 0 Yes [id number] Check Unive rs Misc 4-17 blood ity of 00:00: sugar 2 [place] 00 times a Medical day. Branch E11.9. Brand per insurance. gabapentin Yes [id number] 300mg Take 1 [facility] 300 mg 4-17 capsule by ity of capsule 00:00: mouth in [place] 00 the Medical morning Branch and 1 capsule at noon and 1 capsule in the evening. amiodarone Yes [id number] 200mg Take 1 [facility] 200 mg 4-17 tablet by ity of tablet 00:00: mouth in [place] the morning. Branch apixaban 5 0 Yes 5mg Take 1 Unive rs mg tablet 4-17 tablet by ity o f 00:00: mouth in [place] the morning Branch and 1 tablet in the evening. Indication s: ATRIAL FIBRILLATI ON atorvastati 0 Yes [id number] 40mg Take 1 [facility] n 40 mg 4-17 tablet by ity of tablet 00:00: mouth at [place] [address] bedtime. Medical Branch SERTraline Yes [id number] 100mg Take 1 [facility] 100 mg 4-17 tablet by ity of tablet 00:00: mouth in [place] the morning. Branch lisinopriL Yes [id number] 2.5mg Take 1 Univers 2.5 mg 4-17 tablet by ity of tablet 00:00: mouth in [place] the morning. Branch metoprolol Yes [id number] 25mg Take 1 U nivers tartrate 25 4-17 tablet by ity of mg tablet 00:00: mouth in [facility] the morning Branch and 1 tablet in the evening. blood sugar 0 Yes [id number] Check U nivers diagnostic 4-17 blood ity of strip 00:00: sugar 2 [place] 00 times a Medical day. Branch E11.9. Brand per insurance. Uses ACCU-CHEK machine Lancets Yes [id number] Check Unive rs Misc 4-17 blood ity of 00:00: sugar 2 [place] [address] times a Medical day. Branch E11.9. Brand per insurance. gabapentin 2022-0 Yes [id number] 300mg Take 1 [facility] 300 mg 4-17 capsule by ity of capsule 00:00: mouth in [place] the morning Branch and 1 capsule at noon and 1 capsule in the evening. amiodarone 2022-0 Yes [id number] 200mg Take 1 [facility] 200 mg 4-17 tablet by ity of tablet 00:00: mouth in [place] [address] the morning. Branch apixaban 5 0 Yes 5mg Take 1 Unive rs mg tablet 4-17 tablet by ity o f 00:00: mouth in [place] 00 the morning Branch and 1 tablet in the evening. Indication s: ATRIAL FIBRILLATI ON atorvastati Yes [id number] 40mg Take 1 [facility] n 40 mg 4-17 tablet by ity of tablet 00:00: mouth at [place] [address] bedtime. Medical Branch SERTraline Yes [id number] 100mg Take 1 [facility] 100 mg 4-17 tablet by ity of tablet 00:00: mouth in [place] 00 the morning. Branch lisinopriL Yes [id number] 2.5mg Take 1 Univers 2.5 mg 4-17 tablet by ity of tablet 00:00: mouth in [place] 00 the morning. Branch metoprolol Yes [id number] 25mg Take 1 U nivers tartrate 25 4-17 tablet by ity of mg tablet 00:00: mouth in [facility] 00 the morning Branch and 1 tablet in the evening. blood sugar Yes [id number] Check U nivers diagnostic 4-17 blood ity of strip 00:00: sugar 2 [place] 00 times a Medical day. Branch E11.9. Brand per insurance. Uses ACCU-CHEK machine Lancets Yes [id number] Check Unive rs Misc 4-17 blood ity of 00:00: sugar 2 [place] 00 times a Medical day. Branch E11.9. Brand per insurance. gabapentin Yes [id number] 300mg Take 1 [facility] 300 mg 4-17 capsule by ity of capsule 00:00: mouth in [place] 00 the morning Branch and 1 capsule at noon and 1 capsule in the evening. amiodarone Yes [id number] 200mg Take 1 [facility] 200 mg 4-17 tablet by ity of tablet 00:00: mouth in [place] 00 the morning. Branch apixaban 5 0 Yes 5mg Take 1 Unive rs mg tablet 4-17 tablet by ity o f 00:00: mouth in [place] 00 the morning Branch and 1 tablet in the evening. Indication s: ATRIAL FIBRILLATI ON atorvastati Yes [id number] 40mg Take 1 [facility] n 40 mg 4-17 tablet by ity of tablet 00:00: mouth at [place] 00 bedtime. Medical Branch SERTraline 0 Yes [id number] 100mg Take 1 [facility] 100 mg 4-17 tablet by ity of tablet 00:00: mouth in [place] 00 the morning. Branch lisinopriL 2022-0 Yes [id number] 2.5mg Take 1 Univers 2.5 mg 4-17 tablet by ity of tablet 00:00: mouth in [place] 00 the morning. Branch metoprolol 2022-0 Yes [id number] 25mg Take 1 U nivers tartrate 25 4-17 tablet by ity of mg tablet 00:00: mouth in [facility] s 00 the Medical morning Branch and 1 tablet in the evening. blood sugar 0 Yes [id number] Check U nivers diagnostic 4-17 blood ity of strip 00:00: sugar 2 [place] 00 times a Medical day. Branch E11.9. Brand per insurance. Uses ACCU-CHEK machine Lancets Yes [id number] Check Unive rs Misc 4-17 blood ity of 00:00: sugar 2 [place] 00 times a Medical day. Branch E11.9. Brand per insurance. SERTraline Yes [id number] 100mg Take 1 [facility] 100 mg 4-17 tablet by ity of tablet 00:00: mouth in [place] 00 the Medical morning. Branch SERTraline 2022-0 2022- No [id number] 100mg Take 1 [facility] 100 mg 4-17 05-19 tablet by ity of tablet 00:00: 00:00 mouth in [place] 00 :00 the Medical morning. Branch gabapentin 2022-0 2022- No [id number] 300mg Take 1 [facility] 300 mg 4-17 05-18 capsule by ity of capsule 00:00: 00:00 mouth in [place] 00 :00 the Medical morning Branch and 1 capsule at noon and 1 capsule in the evening. amiodarone 2022-0 2022- No [id number] 200mg Take 1 [facility] 200 mg 4-17 05-18 tablet by ity of tablet 00:00: 00:00 mouth in [place] 00 :00 the Medical morning. Branch apixaban 5 2022-0 3- No 5mg Take 1 Univ ers mg tablet 4-17 05-18 tablet by ity of 00:00: 00:00 mouth in [place] 00 :00 the Medical morning Branch and 1 tablet in the evening. Indication s: ATRIAL FIBRILLATI ON atorvastati 2022- No [id number] 40mg Take 1 Univers n 40 mg 08-05-18 tablet by ity of tablet 00:00: 00:00 mouth at [place] 00 :00 bedtime. Medical Branch lisinopriL 2022- No [id number] 2.5mg Take 1 Univers 2.5 mg 08-0518 tablet by ity of tablet 00:00: 00:00 mouth in [place] 00 :00 the Medical morning. Branch metoprolol 2022- No [id number] 25mg Take 1 [facility] tartrate 25 08-05-18 tablet by it y of mg tablet 00:00: 00:00 mouth in [place] 00 :00 the Medical morning Branch and 1 tablet in the evening. blood sugar 2022- No [id number] Check Univers diagnostic 08-05-18 blood ity of strip 00:00: 00:00 sugar 2 [place] 00 :00 times a Medical day. Branch E11.9. Brand per insurance. Uses ACCU-CHEK machine Lancets 2022- No [id number] Check Univ ers Misc 08-05-18 blood ity of 00:00: 00:00 sugar 2 [place] 00 :00 times a Medical day. Branch E11.9. Brand per insurance. blood sugar 2022- No [id number] Check Univers diagnostic 08-05-17 blood ity of strip 00:00: 00:00 sugar 2 [place] 00 :00 times a Medical day. Branch E11.9. Brand per insurance. Uses ACCU-CHEK machine blood sugar 2022- No [id number] Check Univers diagnostic 08-05-17 blood ity of strip 00:00: 00:00 sugar 2 [place] 00 :00 times a Medical day. Branch E11.9. Brand per insurance. Uses ACCU-CHEK machine blood sugar 2022- No [id number] Check Univers diagnostic 08-05-17 blood ity of strip 00:00: 00:00 sugar 2 [place] 00 :00 times a Medical day. Branch E11.9. Brand per insurance. Uses ACCU-CHEK machine amiodarone Yes 200mg Take 1 Univ ers 200 mg 4-12 tablet by ity of tablet 00:00: mouth in [place] 00 the Medical morning. Branch SERTraline 2023-0 Yes 25mg Take 1 Unive rs 25 mg 4-12 tablet by ity of tablet 00:00: mouth in [place] 00 the Medical morning. Branch amiodarone 2023-0 Yes 200mg Take 1 Univ ers 200 mg 4-12 tablet by ity of tablet 00:00: mouth in [place] 00 the Medical morning. Branch SERTraline 2023-0 Yes 25mg Take 1 Unive rs 25 mg 4-12 tablet by ity of tablet 00:00: mouth in [place] 00 the Medical morning. Branch amiodarone 2023-0 Yes 200mg Take 1 Univ ers 200 mg 4-12 tablet by ity of tablet 00:00: mouth in [place] 00 the Medical morning. Branch SERTraline 2023-0 Yes 25mg Take 1 Unive rs 25 mg 4-12 tablet by ity of tablet 00:00: mouth in [place] 00 the Medical morning. Branch amiodarone 2023-0 2023- No 200mg Take 1 Uni vers 200 mg 4-12 04-17 tablet by ity of tablet 00:00: 00:00 mouth in [place] 00 :00 the Medical morning. Branch SERTraline 2023-0 2023- No 100mg Take 1 Uni vers 100 mg 4-12 04-17 tablet by ity of tablet 00:00: 00:00 mouth in [place] 00 :00 the Medical morning. Branch amiodarone 2023-0 2023- No 200mg Take 1 Uni vers 200 mg 4-12 04-17 tablet by ity of tablet 00:00: 00:00 mouth in [place] 00 :00 the Medical morning. Branch SERTraline 2023-0 2023- No 100mg Take 1 Uni vers 100 mg 4-12 04-17 tablet by ity of tablet 00:00: 00:00 mouth in [place] 00 :00 the Medical morning. Branch amiodarone 2023-0 2023- No 200mg Take 1 Uni vers 200 mg 4-12 04-17 tablet by ity of tablet 00:00: 00:00 mouth in [place] 00 :00 the Medical morning. Branch SERTraline 2023-0 2023- No 100mg Take 1 Uni vers 100 mg 4-12 04-17 tablet by ity of tablet 00:00: 00:00 mouth in [place] 00 :00 the Medical morning. Branch sodium Yes Topical, Univers hypochlorit 4-11 BID, First it y of e 0.025% 01:00: dose on [place] ([facility]) Fri Medical solution 07/29/22 at [facility] h 2000, Until Discontinu ed, Routine iron 2022- No 500mg 500 mg, IV Unive rs sucrose 07-29 Infusion, ity of (VENOFER) 19:15: 23:11 ONCE, [place] 500 mg in 00 :00 Administer Medi dilshad NaCl 0.9% over 2.5 Branch (NS) 250 mL Hours, On infusion 07/29/22 at 1415, For 1 dose iopamidol 2022- No [id number] 80mL 80 mL, Univers (ISOVUE 07-29 Intravenou [...] Medical injection dose, On Branch 50 mEq [place] 07/28/22 at 1500, Routine amiodarone Yes 200mg 200 mg, Uni vers (PACERONE) 07-28 Oral, ity of tablet 200 14:00: DAILY, [place] mg 00 First dose Medical on [place] Branch 07/28/22 at 0900, Until Discontinu ed, Routine SERTraline Yes 25mg 25 mg, Unive rs (ZOLOFT) 07-28 Oral, ity of tablet 25 14:00: DAILY, [place] mg 00 First dose Medical on [place] Branch 07/28/22 at 0900, Until Discontinu ed, Routine Sliding Yes Subcutaneo Univ ers Scale 07-28 us, TID ity of Insulin - 13:00: MEALS+HS, [place] Lispro 00 First dose Medical (HumaLOG) + on [facility] 07/28/22 at Testing 0800, Until Discontinu ed, Routine levETIRAcet No 500mg 500 mg, U nivers am (KEPPRA) 07-28 Oral, BID, i ty of tablet 500 13:00: 12:48 First dose [place] mg 00 :43 on [facility] 07/28/22 at Branch 0800, Until Discontinu ed, Routine vancomycin 2022- No 15mg/kg 1,500 mg Univers (VANCOCIN) 07-28- (rounded ity of 1,500 mg in 11:00: 13:55 from 1,380 [place] NaCl 0.9% 00 :31 mg = 15 Medical (NS) 500 mL mg/kg ?92 [facility] VIAL-MATE kg), IV IV Piggyback, piggyback Q24H ABX, 7 doses, First dose (after last modificati on) on [place] 07/28/22 at 0600, Last dose on 08/03/22 [...] :00 ONCE, 1 Medical dose, On Branch [place] 07/28/22 at 0530, Routine NaCl 0.9% 2022- No 500mL at 999 [facility] ers (NS) bolus 07-28- mL/hr, 500 it y of infusion 09:54: 11:57 mL, IV [place] 500 mL 00 :00 Piggyback, Medical ONCE, 1 Branch dose, On [place] 07/28/22 at 0500, STAT lactated 2022- No 1000mL at 999 [facility] ers ringers IV 07-28- mL/hr, ity of infusion 08:30: 09:06 1,000 mL, [place] 1,000 mL 00 :00 Intravenou Medic al s, ONCE, 1 Branch dose, On [place] 07/28/22 at 0330, Routine HEPARIN 2022- No 4000U 4,000 Univers SODIUM 07-28 Units, IV ity of (PORCINE) 07:45: 08:24 Push, [place] 1,000 00 :00 ONCE, 1 Medical UNIT/ML dose, On Branch BOLUS ACS [place] 07/28/22 ORDER SET at 0245, GELA dextrose 2022- Yes 250mL 250 mL, IV Un anil 10% (D10W) 07-28 Infusion, ity of bolus 07:32: PRN - SEE [place] infusion 32 INSTRUCTIO Medic al 250 mL NS, Branch Administer over 60 Minutes, Other, If blood glucose is < or = 70 mg/dL and patient is unable to swallow or has mental status changes, Starting on [place] 07/28/22 at 0232
If blood glucose is [...] Rang e, Dosing and Testing: &nbs p;[facility], AND [facility] ONLY &nbs p; - [...] Starting [place] mL vial) 11 :03 on [place] Medical for 07/28/22 at Branch Rebolusing 0230, Until 07/29/22 at 0943, Routine
Dosing based on aPPT testing parameters (refer to continuous heparin drip order).
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 cephALEXin 2022- No [id number] 500mg Take 1 Univers (KEFLEX) 07-19-11 capsule [...] Indication s: acute pain sulfamethox 2022-0 2023- No [id number] 2{tbl} Take 2 Univers azole-trime 3-31 04-08 [...] OF JUICE OR WATER HYDROcodone 2022-0 Yes [id number] 1{tbl} Q6H Take 1 M ethodi -acetaminop [...] OF JUICE OR WATER HYDROcodone 2022-0 Yes [id number] 1{tbl} Q6H Take 1 M ethodi -acetaminop [...] OF JUICE OR WATER HYDROcodone 2022-0 Yes [id number] 1{tbl} Q6H Take 1 M ethodi -acetaminop [...] OF JUICE OR WATER HYDROcodone 2022-0 Yes [id number] 1{tbl} Q6H Take 1 M ethodi -acetaminop [...] OF JUICE OR WATER HYDROcodone 3-0 Yes [id number] 1{tbl} Q6H Take 1 M ethodi -acetaminop [...] OF JUICE OR WATER HYDROcodone 2022-0 Yes [id number] 1{tbl} Q6H Take 1 M ethodi -acetaminop [...] OF JUICE OR WATER HYDROcodone 2022-0 Yes [id number] 1{tbl} Q6H Take 1 M ethodi -acetaminop [...] OF JUICE OR WATER HYDROcodone 2022-0 Yes [id number] 1{tbl} Q6H Take 1 M ethodi -acetaminop [...] OF JUICE OR WATER HYDROcodone 2022-0 Yes [id number] 1{tbl} Q6H Take 1 M ethodi -acetaminop [...] OF JUICE OR WATER HYDROcodone 2022-0 Yes [id number] 1{tbl} Q6H Take 1 M ethodi -acetaminop [...] OF JUICE OR WATER HYDROcodone 3-0 Yes [id number] 1{tbl} Q6H Take 1 M ethodi -acetaminop [...] OF JUICE [place] WATER HYDROcodone 3-0 Yes [id number] 1{tbl} Q6H Take 1 M ethodi -acetaminop [...] or as directed by physician. lidocaine 4 2023-[address] 1 Met hodi % 3-15 [...] Infuse 1 g Methodi g in sodium 07-[address] chloride 00:00: 04:59 venous [...] hours for 6 days. levoFLOXaci 2022- No [id number] 500mg QD Take 1 Methodi n 06-[id number] (Levaquin) 00:00: 00:00 (500 mg [facility] 500 MG 00 :00 total) by l tablet mouth daily. levoFLOXaci 2022- No [id number] 500mg QD Take 1 Methodi n 06-[id number] (Levaquin) 00:00: 00:00 (500 mg [facility] [place] 500 MG 00 :00 total) by l tablet mouth daily. levoFLOXaci 2022- No [id number] 500mg QD Take 1 Methodi n 06-[id number] (Levaquin) 00:00: 00:00 (500 mg [facility] 500 MG 00 :00 total) by l tablet mouth daily. levoFLOXaci 2022- No [id number] 500mg QD Take 1 Methodi n 06-[id number] (Levaquin) 00:00: 00:00 (500 mg [facility] 500 MG 00 :00 total) by l tablet mouth daily. levoFLOXaci 2022- No [id number] 500mg QD Take 1 Methodi n 06-[id number] (Levaquin) 00:00: 00:00 (500 mg [facility] [place] 500 MG 00 :00 total) by l tablet mouth daily. levoFLOXaci 2022- No [id number] 500mg QD Take 1 Methodi n 06-[id number] (Levaquin) 00:00: 00:00 (500 mg [facility] 500 MG 00 :00 total) by l tablet mouth daily. levoFLOXaci 2022- No [id number] 500mg QD Take 1 Methodi n 06-[id number] (Levaquin) 00:00: 00:00 (500 mg [facility] 500 MG 00 :00 total) by l tablet mouth daily. levoFLOXaci 2022- No [id number] 500mg QD Take 1 Methodi n 06-[id number] (Levaquin) 00:00: 00:00 (500 mg [facility] 500 MG 00 :00 total) by l tablet mouth daily. levoFLOXaci 3-0 3- No [id number] 500mg QD Take 1 Methodi n 06-[id number] (Levaquin) 00:00: 00:00 (500 mg [facility] 500 MG 00 :00 total) by l tablet mouth daily. levoFLOXaci 3-0 3- No [id number] 500mg QD Take 1 Methodi n 06-[id number] (Levaquin) 00:00: 00:00 (500 mg [facility] 500 MG 00 :00 total) by l tablet mouth daily. levoFLOXaci 3-0 3- No [id number] 500mg QD Take 1 Methodi n 06-[id number] (Levaquin) 00:00: 00:00 (500 mg [facility] 500 MG 00 :00 total) by l tablet mouth daily. levoFLOXaci 3-0 3- No [id number] 500mg QD Take 1 Methodi n 06-[id number] (Levaquin) 00:00: 00:00 (500 mg [...] cephalexin 2023-0 2023- No Method i (KEFLEX) -15 -15 st 500 MG 00:00: 00:00 Hospita capsule 00 :00 l cephalexin 2023-0 2023- No Method i (KEFLEX) 2-15 -15 st 500 MG 00:00: 00:00 Hospita capsule 00 :00 l cephalexin 2023-0 2023- No Method i (KEFLEX) 2-15 -15 st 500 MG 00:00: 00:00 Hospita capsule 00 :00 l cephalexin 2023-0 2023- No Method i (KEFLEX) 2-15 -15 st 500 MG 00:00: 00:00 Hospita capsule 00 :00 l cephalexin 2023-0 2023- No Method i (KEFLEX) 2-15 -15 st 500 MG 00:00: 00:00 Hospita capsule 00 :00 l cephalexin 2023-0 2023- No Method i (KEFLEX) 2-15 -15 st 500 MG 00:00: 00:00 Hospita capsule 00 :00 l cephalexin 2023-0 2023- No Method i (KEFLEX) 2-15 -15 st 500 MG 00:00: 00:00 Hospita capsule 00 :00 l cephalexin 2023-0 2023- No Method i (KEFLEX) 2-15 -15 st 500 MG 00:00: 00:00 Hospita capsule 00 :00 l cephalexin 2023-0 2023- No Method i (KEFLEX) 2-15 -15 st 500 MG 00:00: 00:00 Hospita capsule [...] 3-0 Yes Take by Met hodi (TESSALON) 05-[address] 100 MG 00:00: Hospita capsule [...] 25mg Q.5D Take 1 Meth greer tartrate 05-14-24 tablet (25 st (LOPRESSOR) 00:00: 05:59 mg [...] hours for 10 days. [place]DRO[place] 2022- [place] [id number] 1{tbl} Q6H Take 1 Methodi -acetaminop 05-[address] [facility]) 00:00: 05:59 mouth [facility] 10-325 mg [...] hours for 10 days. HYDROcodone 2022-2022- [place] [id number] 1{tbl} Q6H Take 1 Methodi -acetaminop 05-[address] [facility] ([facility]) 00:00: 05:59 mouth [facility] 10-325 mg [...] for 10 days. HYDROcodone 2022-0 2022- [place] [id number] 1{tbl} Q6H Take 1 Methodi -acetaminop 05-14- tablet by [facility] ([facility]) 00:00: 05:59 mouth [facility] 10-325 mg [...] for 10 days. HYDROcodone 2022-0 2022- No [id number] 1{tbl} Q6H Take 1 Methodi -acetaminop 05-[address] [place] [address]) 00:00: 05:59 mouth [facility] 10-325 mg [...] for 10 days. HYDROcodone 2022-0 2022- No [id number] 1{tbl} Q6H Take 1 Methodi -acetaminop 05-14- tablet by [facility]) 00:00: 05:59 mouth [facility] 10-325 mg [...] for 10 days. HYDROcodone 2023-0 2023- [place] [id number] 1{tbl} Q6H Take 1 Methodi -acetaminop 05-[address] [facility] ([facility]) 00:00: 05:59 mouth [facility] 10-325 mg 00 :00 every 6 l per tablet (six) hours as needed for moderate pain or severe pain for up to 7 days .acute pain. Max Daily Amount: 4 tablets cefTRIAXone 3-0 202- No 2g Q12H Infuse 2 g Methodi (ROCEPHIN) 05-[address] 2 g in 100 00:00: 05:59 venous [facility] ML Mini-Bag 00 :00 catheter l Plus every 12 (twelve) hours for 10 days. HYDROcodone 2022-0 2022- [place] [id number] 1{tbl} Q6H Take 1 Methodi -acetaminop 05-[address] [facility]) 00:00: 05:59 mouth [facility] 10-325 mg [...] for 10 days. HYDROcodone 2022-0 2022- [place] [id number] 1{tbl} Q6H Take 1 Methodi -acetaminop 05-[address] [facility] ([facility]) 00:00: 05:59 mouth [facility] 10-325 mg 00 :00 every 6 l per tablet (six) hours as needed for moderate pain or severe pain for up to 7 days .acute pain. Max Daily Amount: 4 tablets cefTRIAXone 3-0 202- No 2g Q12H Infuse 2 g Methodi (ROCEPHIN) 05-[address] 2 g in 100 00:00: 05:59 venous [facility] ML Mini-Bag 00 :00 catheter l Plus every 12 (twelve) hours for 10 days. HYDROcodone 2022-0 20[place]- [place] [id number] 1{tbl} Q6H Take 1 Methodi -acetaminop 05-14- tablet by [facility] ([facility]) 00:00: 05:59 mouth [facility] 10-325 mg [...] for 10 days. HYDROcodone 3-0 2022- [place] [id number] 1{tbl} Q6H Take 1 Methodi -acetaminop 05-14- tablet by [facility] ([place]) 00:00: 05:59 mouth [facility] 10-325 mg [...] for 10 days. HYDROcodone 2022-0 2022- No [id number] 1{tbl} Q6H Take 1 Methodi -acetaminop 05-14- tablet by [facility]) 00:00: 05:59 mouth [facility] 10-325 mg [...] for 10 days. HYDROcodone 2023-0 202- No [id number] 1{tbl} Q6H Take 1 Methodi -acetaminop 05-14-[address] [facility] ([facility]CO) 00:00: 05:59 [...] for 30 days. insulin 2021-04- No 0U [id number] Inject M ethodi lispro 05-25 [id number] 0-[address] (ADMELOG) 00:00: 05:59 3D [...] for 30 days. insulin 2021-04 No 0U [id number] Inject M ethodi lispro 05-25 [id number] 0-[address] (ADMELOG) 00:00: 05:59 3D [...] for 30 days. insulin 2021-04- No 0U [id number] Inject M ethodi lispro 05-25 [id number] 0-[address] (ADMELOG) 00:00: 05:59 3D [...] for 30 days. insulin 2021-04- No 0U [id number] Inject M ethodi lispro 05-25 [id number] 0-[address] (ADMELOG) 00:00: 05:59 3D [...] for 30 days. insulin 2021-04- No 0U [id number] Inject M ethodi lispro 05-25 [id number] 0-[address] (ADMELOG) 00:00: 05:59 3D [...] for 30 days. insulin 2021-04- No 0U [id number] Inject M ethodi lispro 05-25 [id number] 0-[address] (ADMELOG) 00:00: 05:59 3D [...] for 30 days. insulin 2021-04 No 0U [id number] Inject M ethodi lispro 05-25 [id number] 0-[address] (ADMELOG) 00:00: 05:59 3D [...] for 30 days. insulin 2021-04- No 0U [id number] Inject M ethodi lispro 05-25 [id number] 0-[address] (ADMELOG) 00:00: 05:59 3D [...] for 30 days. insulin 2021-04- No 0U [id number] Inject M ethodi lispro 05-25 [id number] 0-[address] (ADMELOG) 00:00: 05:59 3D [...] for 30 days. insulin 2021-04- No 0U [id number] Inject M ethodi lispro 05-25 [id number] 0-[address] (ADMELOG) 00:00: 05:59 3D [...] for 30 days. insulin 2021-04 No 0U [id number] Inject M ethodi lispro 05-25 [id number] 0-[address] (ADMELOG) 00:00: 05:59 3D [...] for 30 days. insulin 2021-04- No 0U [id number] Inject M ethodi lispro 05-25 [id number] 0-[address] (ADMELOG) 00:00: 05:59 3D [...] 400mg Q.5D Take 2 Meth greer (ZOVIRAX) 2- capsules st 200 MG 00:00: 05:59 (400 [...] 30 injection days. insulin 2021-04- No 0U [id number] Inject M ethodi lispro 05-14 [id number] 0-[address] (ADMELOG) 00:00: 00:00 3D [...] 30 injection days. insulin 2021-04- No 0U [id number] Inject M ethodi lispro 05-14 [id number] 0-[address] (ADMELOG) 00:00: 00:00 3D [...] 30 injection days. insulin 2021-04- No 0U [id number] Inject M ethodi lispro 05-14 [id number] 0-[address] (ADMELOG) 00:00: 00:00 3D [...] QD Take 1 [facility] (PLAVIX) 75 05-14- tablet (75 s t mg tablet 00:00: [...] 30 injection days. insulin 2021-04- No 0U [id number] Inject M ethodi lispro 05-14 [id number] 0-[address] (ADMELOG) 00:00: 00:00 3D [...] 30 injection days. insulin 2021-04 No 0U [id number] Inject M ethodi lispro 05-14 [id number] 0-[address] (ADMELOG) 00:00: 00:00 3D [...] 30 injection days. insulin 2021-04- No 0U [id number] Inject M ethodi lispro 05-14 [id number] 0-[address] (ADMELOG) 00:00: 00:00 3D [...] 30 injection days. insulin 2021-04- No 0U [id number] Inject M ethodi lispro 05-14 [id number] 0-[address] (ADMELOG) 00:00: 00:00 3D [...] 30 injection days. insulin 2021-04- No 0U [id number] Inject M ethodi lispro 05-14 [id number] 0-[address] (ADMELOG) 00:00: 00:00 3D [...] 30 injection days. insulin 2021-04- No 0U [id number] Inject M ethodi lispro 05-14 [id number] 0-[address] (ADMELOG) 00:00: 00:00 3D [...] 30 injection days. insulin 2021-04- No 0U [id number] Inject M ethodi lispro 05-14- [id number] 0-[address] (ADMELOG) 00:00: 00:00 3D [...] 30 injection days. insulin 2021-04- No 0U [id number] Inject M ethodi lispro 05-14 [id number] 0-[address] (ADMELOG) 00:00: 00:00 3D [...] 30 injection days. insulin 2021-04- No 0U [id number] Inject M ethodi lispro 05-14 [id number] 0-[address] (ADMELOG) 00:00: 00:00 3D [...] times a day for 14 days. ciprofloxac 2022-1 2022- No 500mg Q.5D Take 1 Me thodi [...] Q.5D Take 1 [facility] (VIBRAMYCIN 1-24 - capsule st ) 50 MG 00:00: [...] Q.5D Take 1 [facility] (VIBRAMYCIN [address] ) 50 MG 00:00: 05:59 [...] by oral route for 90 days. metFORMIN 202-0 Yes metformin [facility] (GLUCOPHAGE 8-26 1,[address] ) 1,000 mg 00:00: tablet Hospi ta tablet 00 Take 1 l tablet twice a day by oral route for 90 days.Stren gth: 1,000 mg metFORMIN 2021-0 Yes metformin Met [...] metFORMIN 2021-2022- No metformin [facility] (GLUCOPHAGE 12-14 1,[address] ) 1,000 mg 00:00: 00:00 tablet [facility] tablet 00 :00 Take 1 l tablet twice a day by oral route for 90 days.Stren gth: 1,000 mg metFORMIN 2021-2022- No metformin [facility] (GLUCOPHAGE 12-14 1,[address] ) 1,000 mg 00:00: 00:00 tablet [facility] tablet 00 :00 Take 1 l tablet twice a day by oral route for 90 days.Stren gth: 1,000 mg metFORMIN 2021-2022- No metformin [facility] (GLUCOPHAGE 12-14 1,[address] ) 1,000 mg 00:00: 00:00 tablet [facility] tablet 00 :00 Take 1 l tablet twice a day by oral route for 90 days.Stren gth: 1,000 mg metFORMIN 2021-2022- No metformin [facility] (GLUCOPHAGE 12-14 1,[address] ) 1,000 mg 00:00: 00:00 tablet [facility] tablet 00 :00 Take 1 l tablet twice a day by oral route for 90 days.Stren gth: 1,000 mg metFORMIN 2021-2022- No metformin [facility] (GLUCOPHAGE 12-14 1,[address] ) 1,000 mg 00:00: 00:00 tablet [facility] tablet 00 :00 Take 1 l tablet twice a day by oral route for 90 days.Stren gth: 1,000 mg metFORMIN 2021-2022- No metformin [facility] (GLUCOPHAGE 12-14 1,000 [...] :00 daily for l 30 days. nicotine 2021-0 2- No 1{patch QD Place 1 Me thodi [...] capsule day for 10 [place] [id number] 50mg Q6H Take 1 [facility] di (ULTRAM) 50 11-08 tablet (50 s t mg tablet 00:00: 04:59 mg total) Ho [facility]ita 00 :00 by mouth l every 6 (six) hours as needed for moderate pain for up to 7 [place] [id number] 50mg Q6H Take 1 Metho di (ULTRAM) 50 7-08 11-29 tablet (50 s t mg tablet 00:00: 04:59 mg total) [facility] 00 :00 by mouth l every 6 (six) hours as needed for moderate pain for up to 7 days .acute pain. traMADoL 2021- No [id number] 50mg Q6H Take 1 [facility] di (ULTRAM) 50 7-08 11-29 tablet (50 s t mg tablet 00:00: 04:59 mg total) [facility] 00 :00 by mouth l every 6 (six) hours as needed for moderate pain for up to 7 days .acute pain. traMADoL 2021- 45307 50mg Q6H Take 1 Metho di (ULTRAM) 50 7-08 11-29 tablet (50 s t mg tablet 00:00: 04:59 mg total) [facility] 00 :00 by mouth l every 6 (six) hours as needed for moderate pain for up to 7 days .acute pain. traMADoL 28016 50mg Q6H Take 1 [facility] di (ULTRAM) 50 7-08 11-29 tablet (50 s t mg tablet 00:00: 04:59 mg total) [facility] 00 :00 by mouth l every 6 (six) hours as needed for moderate pain for up to 7 days .acute pain. traMADoL 2021- No [id number] 50mg Q6H Take 1 [facility] di (ULTRAM) 50 7-08 11-29 tablet (50 s t mg tablet 00:00: 04:59 mg total) [facility] 00 :00 by mouth l every 6 (six) hours as needed for moderate pain for up to 7 days .acute pain. traMADoL 2021- 05993 50mg Q6H Take 1 [facility] di (ULTRAM) 50 7- 07-29 tablet (50 s t mg tablet 00:00: 04:59 mg total) [facility] 00 :00 by mouth l every 6 (six) hours as needed for moderate pain for up to 7 days .acute pain. traMADoL 2021- [place] [id number] 50mg Q6H Take 1 Meth[facility] di (ULTRAM) 50 7- 07-29 tablet (50 s t mg tablet 00:00: 04:59 mg total) [facility] 00 :00 by mouth l every 6 (six) hours as needed for moderate pain for up to 7 days .acute pain. traMADoL 2021- No [id number] 50mg Q6H Take 1 Metho di (ULTRAM) [...] 00:00 Hospita 00 :00 l amoxicillin 2022-0 2- No Metho di -pot 6-14 08-26 st clavulanate 00:00: 00:00 Hospi ta (AUGMENTIN) 00 :00 l 875-125 mg per tablet ibuprofen 0 2022- No [facility] (ADVIL) 600 6-14 08-26 st MG tablet 00:00: 00:00 Hospita 00 :00 l amoxicillin 2021-0 2022- No Metho di -pot 6-14 08-26 st clavulanate 00:00: 00:00 Hospi ta (AUGMENTIN) 00 :00 l 875-125 mg per tablet ibuprofen 2021-0 202- No [facility] (ADVIL) 600 6-14 08-26 st MG tablet 00:00: 00:00 [facility]ospita 00 :00 l amoxicillin 2021-0 202- No Metho di -pot 6-14 08-26 st clavulanate 00:00: 00:00 Hospi ta (AUGMENTIN) 00 :00 l 875-125 mg per tablet HumaLOG 0 Yes INJECT 5 Method i [...] gauge 00 l x 5/16 syringe [facility] 2-0 2023- [...] 0Ordered: 2ELISA Garcia t: 2 Lantus 100 No 10{unit Lantus 100 2.16.84 UNIT/ML 3-11 s} UNIT/ML 0.1.113 Subcutaneou 00:00: Subcutaneo 883.4.2 s Solution 00 us Solution; 10 units qhs. for 0 days Quantity: 10 {Millilite r}Refills: 0Ordered: 2ELISA Garcia BranchStsanti t: 2 True Metrix 2021-0 No 1{Each} True Please 2 .16.84 Blood 3- Metrix substitut 0.1.113 Glucose 00:00: Blood e prn. 883.4.2 Test In 00 Glucose Vitro Strip Test In Vitro Strip; 1 (one) Each bid for 0 days Quantity: 60 {Each}Refi lls: 5Ordered: 2ELISA Garciasanti t: 2Comments: Please substitute prn. atorvastati Yes Take by Met [facility] n (LIPITOR) 06-[address] 20 mg 00:00: Hospita tablet 00 l atorvastati Yes Take by Met [facility] n (LIPITOR) 06-[address] 20 mg 00:00: Hospita tablet 00 l atorvastati 0 2021- No Take by [...] No Take by Me thodi n (LIPITOR) 06-29-[address] 20 mg 00:00: 00:00 Hospita tablet 00 :00 l atorvastati 2021- No Take by Me thodi n (LIPITOR) [address] 20 mg 00:00: 00:00 [facility]ospita tablet 00 :00 l atorvastati 2021- No Take by Me thodi n (LIPITOR) [address] 20 mg 00:00: 00:00 Hospita [...] 500mg Q.5D Take 1 [facility] (GLUCOPHAGE 0-15 -13 refill tablet by [employer] ) 500 mg 00:00: 23:59 mouth 2 tablet 00 :00 times daily (with meals) for 90 days. metFORMIN 2020-04- No Medication 500mg Q.5D Take 1 [facility] (GLUCOPHAGE 0-15 01-13 refill tablet by [employer] ) 500 mg 00:00: 23:59 mouth 2 tablet 00 :00 times daily (with meals) for 90 days. cephalexin 2020- No 500mg [id number] Take 1 [facility] (KEFLEX) 9-14 01-10 [id number] capsule s t 500 MG 00:00: 04:59 3D (500 mg Hospita capsule 00 :00 total) by l mouth 3 (three) times a day for 7 days. cephalexin No 500mg Q.[id number] Take 1 [facility] (KEFLEX) 01-02 09-22 [id number] capsule s t 500 MG 00:00: 04:59 [...] tab, PO, l tablet 21:52: Q8H, PRN [place] 00 Pain, Take with food, X 10 day, # 30 tab, 0 Refill(s) Flexeril 2015-04 No Notes: [facility]oria 0-27 (Same As: l 20:33: Flexeril) [place] 00 Motrin 2015-04 No Notes: [facility] 0-27 (Same as: l 20:33: Motrin) [place] 00 "Do Not Crush" Give with food. 24 HR No Notes: [facility] Metformin 9-15 (Same as: l hydrochlori 14:00: Glucophage [place] de 500 MG 00 XR) "Do Extended Not Crush" Release Tablet Azithromyci No Notes: [place] betty n 9-15 Take 1 l 14:00: hour [place] 00 before or 2 hours after meals. (Same As: Zithromax) Prednisone No Notes: Memor ia 9-15 Take with l 14:00: food. [place] 00 24 HR Yes 1,000 mg = Memori a Metformin 9-15 2 tab, PO, l hydrochlori 00:46: BID, # 120 [place] de 500 MG 10 tab, 0 Extended Refill(s), Release Pharmacy: [facility] [place] [id number] 120 ACTUAT Yes 2 puff, [place] betty Albuterol 9-15 INHALATION l 0.1 00:46: , QID, # 1 [place] MG/ACTUAT / 00 ea, 0 Ipratropium Refill(s), [place] [facility]: 0.02 [place] [id number] MG/ACTUAT [facility] Metered Dose Inhaler [Combivent 20/100] predniSONE Yes 20 mg = 1 Me moria 20 mg oral 9-15 tab, PO, l tablet 00:46: Daily, X 3 Keesha nn 00 day, # 3 tab, 0 Refill(s), Pharmacy: [place] [id number] [facility] Insulin No 60 units) [place] betty regular 01-02 WASTE: F/P l 21:18: - Black; E [place] 00 - Magix Bin Stable for 28 days at room [...] (Same as: l / 19:00: Duoneb) Ipratropium [place] 0.167 MG/ML Inhalant Solution Enoxaparin No Notes: Memor ia 01-02 (Same as: l 14:00: Lovenox) Ceftriaxone No Notes: [place] betty 01-02 (Same As: l 14:00: Rocephin). Use with 100 mL NS and infuse over 30 min MEDICATION WASTE Product Size: 1000 mg Product Wasted: ___ mg Sodium No 25 mL, [facility] Chloride 01-02 Route: IV, l 0.9% IV 13:53: Start [place] 00 date: 01/03/16 8:53:00 CDT, Duration: 30 day, Stop date: 02/02/16 8:52:00 CDT, PRN Line Flush BD Normal No Notes: Memori a Saline -14 (Same as: l Flush 13:53: BD [place] 00 Posiflush) BD Normal No Notes: Memori a Saline -14 (Same as: l Flush 13:52: BD [place] 00 Posiflush) Albuterol No Notes: SEE Me moria 0.83 MG/ML 01-02 RT l Inhalant 13:40: DOCUMENTAT Her mckeon Solution 00 ION (Same as: Proventil) Azithromyci No Notes: [place] betty n -14 Take 1 l 13:40: hour [place] 00 before or 2 hours after meals. (Same As: Zithromax) methylPREDN No Notes: [place] betty ISolone 14 (Same l SODium 08:01: as:Solu-ME Keesha nn SUCCinate 00 DROL, A-Methapre d) Saline No Notes: [facility] Flush 0.9% - (Same as: l 08:01: BD [place] 00 Posiflush) 200 ACTUAT No Notes: Memor [...] betty 8-30 (Same As: l 19:03: Cleocin) [place] 00 Tylenol No Notes: Do Memor ia 8-30 [...] / 12-18 (Same as: l Hydrocodone 06:19: [place] Keesha nn Bitartrate 00 325/5) Do 5 MG Oral not exceed Tablet 4gm/day of [Stanton acetaminop 5/325] hen. Insulin No Notes: [facility] regular 12-12 (Same as: l 05:07: Humulin R [place] 00 and NovoLIN R) WASTE: F/P - Black; E - Municipal Trash Bin (Do not shake) Ativan No 2 mg, Memoria 12-12 Route: PO, l 04:14: Drug form: [place] 00 TAB, ONCE, Dosing Weight 93.182, kg, [...] Immunization Name Immunization Name Pneumococcal 2022-04-19 Completed [facility] 20-valent Conjugate 00:00:00 [facility] Vaccine FLUCELVAX QUAD 2022-04-[address] 00:00:00 [facility] Pneumococcal 2022-04-19 Completed [facility] 20-valent Conjugate 00:00:00 Hospi amber Vaccine FLUCELVAX QUAD 2022-04-[address] 00:00:00 [facility] Pneumococcal 2022-04-19 Completed [facility] 20-valent Conjugate 00:00:00 [facility]pi [facility] Vaccine FLUCELVAX QUAD 2022-04-[address] 00:00:00 [facility] Pneumococcal 2022-04-19 Completed [facility] 20-valent Conjugate 00:00:00 [facility]pi [facility] Vaccine FLUCELVAX QUAD PF 2022-04-[address] 00:00:00 [facility] Pneumococcal 2022-04-19 Completed [facility] 20-valent Conjugate 00:00:00 [facility] Vaccine FLUCELVAX QUAD PF 2022-04-[address] 00:00:00 [facility] Pneumococcal 2022-04-19 Completed [facility] 20-valent Conjugate 00:00:00 [facility] Vaccine FLUCELVAX QUAD PF 2022-04-[address] 00:00:00 Hospital Pneumococcal 2022-04-19 Completed [facility] 20-valent Conjugate 00:00:00 [facility]pi ambre Vaccine FLUCELVAX QUAD PF 2022-04-[address] 00:00:00 Hospital Pneumococcal 2022-04-19 Completed [facility] 20-valent Conjugate 00:00:00 [facility] amber Vaccine FLUCELVAX QUAD 2022-04-[address] 00:00:00 [facility] Pneumococcal 2022-04-19 Completed [facility] 20-valent Conjugate 00:00:00 [facility]pi am[facility] Vaccine FLUCELVAX QUAD 2022-04-[address] 00:00:00 Hospital Pneumococcal 2022-04-19 Completed [facility] 20-valent Conjugate 00:00:00 [facility]pi amber Vaccine FLUCELVAX QUAD 2022-04-[address] 00:00:00 [facility] TDAP 2021-09-30 Completed [facility] 00:00:00 [facility] TDAP 2021-09-30 Completed [facility] 00:00:00 [facility] TDAP 2021-09-30 Completed [facility] 00:00:00 [facility] TDAP 2021-09-30 Completed [facility] 00:00:00 [facility] TDAP 2021-09-30 Completed [facility] 00:00:00 [facility] TDAP 2021-09-30 Completed [facility] 00:00:00 [facility] TDAP 2021-09-30 Completed [facility] 00:00:00 [facility] TDAP 2021-09-30 Completed [facility] 00:00:00 [facility] TDAP 2021-09-30 Completed [facility] 00:00:00 [facility] TDAP 2021-09-30 Completed [facility] 00:00:00 [facility] TDAP 2021-09-30 Completed [facility] 00:00:00 [facility] TDAP 2021-09-30 Completed [facility] 00:00:00 [facility] TDAP 2021-09-30 Completed [facility] 00:00:00 [facility] TDAP 2021-09-30 Completed [facility] 00:00:00 [facility] TDAP 2021-09-30 Completed [facility] 00:00:00 [facility] TDAP 2021-09-30 Completed [facility] 00:00:00 [facility] TDAP 2016-12-31 Completed [facility] 00:00:00 [facility] TDAP 2016-12-31 Completed [facility] 00:00:00 [facility] TDAP 2016-12-31 Completed [facility] 00:00:00 [facility] TDAP 2016-12-31 Completed [facility] 00:00:00 [facility] TDAP 2016-12-31 Completed [facility] 00:00:00 [facility] TDAP 2016-12-31 Completed [facility] 00:00:00 [facility] TDAP 2016-12-31 Completed [facility] 00:00:00 [facility] TDAP 2016-12-31 Completed [facility] 00:00:00 [facility] TDAP 2016-12-31 Completed [facility] 00:00:00 [facility] TDAP 2016-12-31 Completed [facility] 00:00:00 [facility] TDAP 2016-12-31 Completed [facility] 00:00:00 [facility] TDAP 2016-12-31 Completed [facility] 00:00:00 [facility] TDAP 2016-12-31 Completed [facility] 00:00:00 [facility] TDAP 2016-12-31 Completed [facility] 00:00:00 [facility] TDAP 2016-12-31 Completed [facility] 00:00:00 [facility] TDAP 2016-12-31 Completed [facility] 00:00:00 [facility] pneumococcal 2016-01-04 Completed [facility] Her [facility] 23-valent vaccine 01:30:00 influenza virus 2016-01-04 Completed [facility] [place] vaccine, 01:26:00 inactivated Pneumococcal Unknown Completed [facility] 20-valent Conjugate Hospi amber Vaccine FLUCELVAX QUAD PF Unknown Completed [facility] Pneumococcal Unknown Completed [facility] 20-valent Conjugate Hospi amber Vaccine FLUCELVAX QUAD PF Unknown Completed [facility] Vital Signs Vital Name Observation Time Observation Value Comments Source Systolic blood 2022-12-16 95 mm[Hg] [facility] pressure 18:13:00 [facility] Diastolic blood 2022-12-16 61 mm[Hg] University o f pressure 18:13:00 [facility] Heart rate 2022-12-16 61 /min [facility] 18:13:00 [facility] Body temperature 2022-12-16 36.33 Jaqueline [facility] 18:13:00 [facility] Respiratory rate 2022-12-16 20 /min [facility] 18:13:00 [facility] Body weight 2022-12-16 86.183 kg [facility] 18:13:00 [facility] BMI 2022-12-16 57.98 kg/m2 [facility] 18:13:00 [facility] Oxygen saturation 2022-12-16 91 /min [facility] in Arterial blood 18:13:00 [place] [facility] by Pulse oximetry Branch Systolic blood 2022-11-06 96 mm[Hg] [facility] pressure 18:56:00 [facility] Diastolic blood 2022-11-06 65 mm[Hg] University o f pressure 18:56:00 [facility] Heart rate 2022-11-06 56 /min [facility] 18:56:00 [facility] Respiratory rate 2022-11-06 18 /min [facility] 18:56:00 [facility] Body height 2022-11-06 121.9 cm [facility] 18:56:00 [facility] Systolic blood 2022-11-06 96 mm[Hg] [facility] pressure 18:21:00 [facility] Diastolic blood 2022-11-06 56 mm[Hg] University o f pressure 18:21:00 [facility] Heart rate 2022-11-06 56 /min [facility] 18:21:00 [facility] Respiratory rate 2022-11-06 18 /min [facility] 18:21:00 [facility] Body height 2022-11-06 121.9 cm [facility] 18:21:00 [facility] Body weight 2022-11-06 86.183 kg University [facility] 18:21:00 [facility] BMI 2022-11-06 57.98 kg/m2 [facility] 18:21:00 [facility] Oxygen saturation 2022-11-06 96 /min [facility] in Arterial blood 18:21:00 [place] [facility] by Pulse oximetry Branch Systolic blood 2022-09-13 113 mm[Hg] [facility] pressure 03:30:00 [facility] Diastolic blood 2022-09-13 59 mm[Hg] University o f pressure 03:30:00 [facility] Heart rate 2022-09-13 62 /min [facility] 03:30:00 [facility] Respiratory rate 2022-09-13 17 /min [facility] 03:30:00 [facility] Oxygen saturation 2022-09-13 96 /min [place] [facility] in Arterial blood 03:30:00 [facility] dilshad by Pulse oximetry Branch Body temperature 2022-09-13 37.11 Jaqueline [facility] 02:29:00 [facility] Body height 2022-09-13 121.9 cm University [facility] 02::00 [facility] Body weight 2022-09-13 87.544 kg [facility] 02:29:00 [facility] BMI 2022-09-13 58.89 kg/m2 [facility] 02:29:00 [facility] Systolic blood 2022-09-12 100 mm[Hg] [facility] pressure 18:47:00 [facility] Diastolic blood 2022-09-12 67 mm[Hg] University o f pressure 18:47:00 [facility] Heart rate 2022-09-12 58 /min [facility] 18:47:00 [facility] Body temperature 2022-09-12 36.17 Jaqueline [facility] 18:47:00 [facility] Body weight 2022-09-12 87.544 kg University [facility] 18:47:00 [facility] BMI 2022-09-12 58.89 kg/m2 [facility] 18:47:00 [facility] Oxygen saturation 2022-09-12 97 /min [place] [facility] in Arterial blood 18:47:00 [facility] dilshad by Pulse oximetry Branch Systolic blood 2022-08-14 122 mm[Hg] [facility] pressure 07:31:00 [facility] Diastolic blood 2022-08-14 55 mm[Hg] University o f pressure 07:31:00 [facility] Heart rate 2022-08-14 55 /min [facility] 07:31:00 [facility] Respiratory rate 2022-08-14 15 /min [facility] 07:31:00 [facility] Oxygen saturation 2022-08-14 94 /min [facility] in Arterial blood 07:31:00 [facility] dilshad by Pulse oximetry Branch Body temperature 2022-08-14 37 Jaqueline [facility] 05:10:00 [facility] Body height 2022-08-14 121.9 cm "without my University [facility] 05:10:00 legs" [facility] Body weight 2022-08-14 81.647 kg [facility] 05:10:00 [facility] BMI 2022-08-14 54.93 kg/m2 University [facility] 05:10:00 [facility] Systolic blood 2022-08-05 175 mm[Hg] [facility] pressure 18:25:00 [facility] Diastolic blood 2022-08-05 71 mm[Hg] [facility] f pressure 18:25:00 [facility] Heart rate 2022-08-05 60 /min [facility] 18:24:00 [facility] Body temperature 2022-08-05 36.67 Jaqueline [facility] 18:24:00 [facility] Respiratory rate 2022-08-05 18 /min [facility] 18:24:00 [facility] Body height 2022-08-05 121.9 cm [facility] 18:24:00 [facility] Oxygen saturation 2022-08-05 100 /min [place] [facility] in Arterial blood 18:24:00 [facility] by Pulse oximetry Branch Systolic blood 2022-07-31 130 mm[Hg] [facility] pressure 21:05:00 [facility] Diastolic blood 2022-07-31 47 mm[Hg] University o f pressure 21:05:00 [facility] Heart rate 2022-07-31 61 /min [facility] 21:05:00 [facility] Body temperature 2022-07-31 36.83 Jaqueline [facility] 21:05:00 [facility] Respiratory rate 2022-07-31 16 /min [facility] 21:05:00 [facility] Oxygen saturation 2022-07-31 99 /min [place] [facility] in Arterial blood 21:05:00 [facility] by Pulse oximetry Branch Body height 2022-07-29 121.9 cm [facility] University [facility] 15:00:00 [facility] Body weight 2022-07-28 92 kg University [facility] 07:00:00 [facility] BMI 2022-07-28 61.89 kg/m2 [facility] 07:00:00 [facility] Systolic blood 2022-07-19 116 mm[Hg] [facility] pressure 06:20:00 [facility] Diastolic blood 2022-07-19 82 mm[Hg] University o f pressure 06:20:00 [facility] Heart rate 2022-07-19 54 /min [facility] 06:20:00 [facility] Body temperature 2022-07-19 36.5 Jaqueline [facility] 06:20:00 [facility] Respiratory rate 2022-07-19 16 /min [facility] 06:20:00 [facility] Oxygen saturation 2022-07-19 95 /min [facility] in Arterial blood 06:20:00 [facility] by Pulse oximetry [place] Body height 2022-07-19 121.9 cm [facility] 02:38:00 [facility] Body weight 2022-07-19 79.379 kg [facility] 02:38:00 [facility] BMI 2022-07-19 53.40 kg/m2 [facility] 02:38:00 [facility] Temperature 2021-06-29 97 [degF] Method: Oral [id number] 8 13:17:12 3.4.2 Pulse 2021-06-29 77 /min Pattern: [id number] 8 13:17:12 Regular 3.4.2 Respiration Rate 2021-06-29 18 /min Pattern: [id number]. 32040 13:17:12 Unlabored 3.4.2 BP Systolic 2021-06-29 139 mm[Hg] Patient [id number] 8 13:17:12 Position: 3.4.2 Sitting; Cuff Location: Left Arm; Cuff Size: Standard BP Diastolic 2021-06-29 82 mm[Hg] Patient [id number] 8 13:17:12 Position: 3.4.2 Sitting; Cuff Location: Left Arm; Cuff Size: Standard Systolic blood 2022-07-03 122 mm[Hg] [facility] pressure [...] Body weight 2021-12-11 88.451 kg [facility] 22:35:00 [facility] BMI 2021-12-11 30.54 kg/m2 [facility] 22:35:00 [facility] Systolic blood 2021-02-02 153 mm[Hg] [facility] pressure 16:00:00 Diastolic blood 2021-02-02 79 mm[Hg] [facility] pressure 16:00:00 Heart rate 2021-02-02 84 /min [facility] 16:00:00 Body temperature 2021-02-02 36.67 Jaqueline [facility] 16:00:00 Respiratory rate 2021-02-02 18 /min [facility] 16:00:00 Oxygen saturation 2021-02-02 97 /min [facility] in Arterial blood 16:00:00 by Pulse oximetry Body height 2021-02-02 177.8 cm [facility] 14:44:00 Body weight 2021-02-02 81.647 kg [facility] 14:44:00 BMI 2021-02-02 25.83 kg/m2 [facility] 14:44:00 Temperature Oral 2016-02-16 98 F [facility] rmann (F) 02:05:00 Respitory Rate 2016-02-16 [facility] [facility] richie 02:05:00 Heart Rate 2016-02-16 Ronni Juarez n 02:05:00 Systolic (mm Hg) 2016-02-16 [facility] [...] richie 01:00:00 Temperature Oral 2016-01-04 97.6 F [facility] Codey rmann (F) 01:00:00 Systolic (mm Hg) 2016-01-03 [facility] rmann 21:00:00 Diastolic (mm Hg) 2016-01-03 [facility] ermann 21:00:00 Respitory Rate 2016-01-03 [facility] richie 21:00:00 Heart Rate 2016-01-03 [facility] Larry n 21:00:00 Temperature Oral 2016-01-03 97.5 F [facility] Codey rmann (F) 21:00:00 Systolic (mm [...] Performed REFERRAL- 2022-12-24 05:01:00 Doctor Unassigned, No [facility] REQUEST/RESPONSE Name Medical Branch FREE T4 2022-12-16 18:56:00 Jaime Finneganssica [place] o [facility] THYROID STIMULATING 2022-12-16 18:56:00 Alexandra Finnegan [facility] HORMONE Medical Branch COMP. METABOLIC PANEL 2022-12-16 18:56:00 Alexandra Finnegan [facility] ([id number]) Medical Branch LIPID PANEL ([id number])(TOTAL 2022-12-16 18:56:00 [facility] CHOLE[facility]OL, Medical Branch TRIGLYCERIDES, HDL) CBC WITH DIFF 2022-12-16 18:56:00 Jaime Finneganssica [facility] GLYCOSYLATED HEMOGLOBIN 2022-12-16 18:56:00 Alexandra Finnegan [facility] (A1C) Medical Branch INSURANCE CORRESPONDENCE 2022-11-08 05:01:00 Doctor Unassigned, No [facility] HOME HEALTH - OTHER 2022-09-25 05:01:00 Doctor Unassigned, No Un [facility] Medical Foley EKG-12 LEAD 2022-09-13 03:45:38 Hui Paez [facility] BASIC METABOLIC PANEL 2022-09-13 02:46:00 [facility] (NA, K, CL, CO2, GLUCOSE, Medica l Branch BUN, CREATININE, CA) CONSENT/REFUSAL FOR 2022-09-13 02:24:56 Doctor Unassigned, No [facility]AT[facility] Name Medical Foley XR LUMBAR SPINE 5 VW 2022-09-12 20:57:55 Alexandra Finnegan [facility] Medical Foley XR HIPS 3 VW LEFT 2022-09-12 20:57:55 [facility] PROSTATIC SPECIFIC 2022-09-12 19:52:00 Alexandra Finnegan [facility] ANTIGEN [facility] Branch FREE T4 2022-09-12 19:52:00 Jaime Finneganssica [facility] THYROID STIMULATING 2022-09-12 19:52:00 Alexandra Finnegan [facility] HORMONE Medical Branch COMP. METABOLIC PANEL 2022-09-12 19:52:00 Alexandra Finnegan [facility] ([id number]) Medical Branch LIPID PANEL ([id number])(TOTAL 2022-09-12 19:52:00 Alexandra Finnegan Un [facility] CHOLESTEROL, Medical Branch TRIGLYCERIDES, HDL) CBC WITH DIFF 2022-09-12 19:52:00 [facility] GLYCOSYLATED HEMOGLOBIN 2022-09-12 19:52:00 Kain Alexandra [facility] (A1C) [facility] URINALYSIS 2022-09-12 19:52[facility]00 [facility]PPL[facility] JUSTIF[facility] 2022-09-04 05:01:00 Doctor Unassigned, No [facility] HOME HEALTH - OTHER 2022-08-26 05:01:00 Doctor Unassigned, No [facility] POCT GLUCOSE (AUTOMATED) 2022-08-14 07:28:00 Les Ellsworth [facility] URINE DRUG (IMMUNOASSAY) 2022-08-14 06:10:00 Les Ellsworth [facility] - COMPREHENSIVE DRUG Medical Bra nc SCREEN URINALYSIS 2022-08-14 06:10:00 Les Ellsworth [facility] BASIC METABOLIC PANEL 2022-08-14 05:43:00 Les Ellsworth [facility] (NA, K, CL, CO2, GLUCOSE, Medica l Branch BUN, CREATININE, CA) CBC WITH DIFF 2022-08-14 05:43:00 Les Ellsworth [facility] LACTIC ACID WHOLE BLOOD 2022-08-14 05:43:00 Les Ellsworth [facility] CONSENT/REFUSAL FOR 2022-08-14 05:01:57 Doctor Unassigned, No [facility] DNR 2022-08-07 05:01:00 Doctor Unassigned, No [facility] HOME HEALTH 485 2022-08-02 05:01:00 Doctor Unassigned, No [facility] POCT GLUCOSE (AUTOMATED) 2022-07-31 22:26:00 Malik Mayo [facility] POCT GLUCOSE (AUTOMATED) 2022-07-31 17:13:00 Malik [facility] POCT GLUCOSE (AUTOMATED) 2022-07-31 01:46:00 Malik Mayo [facility] POCT GLUCOSE (AUTOMATED) 2022-07-30 23:16:00 Malik Mayo [facility] POCT GLUCOSE (AUTOMATED) 2022-07-30 18:42:00 Mayo [facility] POCT GLUCOSE (AUTOMATED) 2022-07-30 14:18:00 Rylee Malik [facility] MAGNESIUM 2022-07-30 10:58:00 Kelsey [facility] BASIC METABOLIC PANEL 2022-07-30 10:58:00 Kelsey [facility] (NA, K, CL, CO2, GLUCOSE, Medica l Branch BUN, CREATININE, CA) CBC WITH DIFF 2022-07-30 10:58:00 Kelsey [facility] POCT GLUCOSE (AUTOMATED) 2022-07-30 01:36:00 Mayo, [facility] POCT GLUCOSE (AUTOMATED) 2022-07-29 22:43:00 Rylee [facility] POCT GLUCOSE (AUTOMATED) 2022-07-29 18:35:00 Rylee [facility] IRON PANEL 2022-07-29 17:06:00 Kelsey [facility] CT ANGIOGRAM LOWER 2022-07-29 16:36:24 Yordy Thornton [facility] EXTREMITY LEFT W CONTRAST Medica l Branch ACTIVATED PARTIAL 2022-07-29 13:53:00 Yordy Thornton [facility] THRMPLAS [facility] POCT GLUCOSE (AUTOMATED) 2022-07-29 13:45:00 Rylee [facility] MAGNESIUM 2022-07-29 10:36:00 Eloy Smalls [place] [facility] FERRITIN SERUM 2022-07-29 10:36:00 Kelsey [facility] HEPATIC FUNCTION PANEL 2022-07-29 10:36:00 Eloy Smalls [facility] ([id number]) (ALB,T.PRO,BILI Medical Branch T,BU/BC,ALT,AST,ALK PHOS) BASIC METABOLIC PANEL 2022-07-29 10:36:00 Eloy Smalls [facility] (NA, K, CL, CO2, GLUCOSE, Medica l Branch BUN, CREATININE, CA) CBC WITH DIFF 2022-07-29 10:36:00 Eloy Smalls [facility] ACTIVATED PARTIAL 2022-07-29 07:13:00 Yordy Thornton [facility] URINALYSIS 2022-07-29 01:44:00 Darius [facility] CREATININE, URINE RANDOM 2022-07-29 01:44:00 Darius [facility] UREA NITROGEN, URINE 2022-07-29 01:44:00 Darius [facility] SODIUM, URINE RANDOM 2022-07-29 01:44:00 Darius [facility] POCT GLUCOSE (AUTOMATED) 2022-07-29 01:17:00 Malik Mayo [facility] POCT GLUCOSE (AUTOMATED) 2022-07-28 21:09:00 Brennan Love [facility] BASIC METABOLIC PANEL 2022-07-28 19:01:00 [facility] (NA, K, CL, CO2, GLUCOSE, Medica l Branch BUN, CREATININE, CA) ACTIVATED PARTIAL 2022-07-28 19:01:00 Yordy Thornton [facility] POCT GLUCOSE (AUTOMATED) 2022-07-28 17:12:00 Brennan Love [facility] BASIC METABOLIC PANEL 2022-07-28 14:28:00 [facility] (NA, K, CL, CO2, GLUCOSE, Medica l Branch BUN, CREATININE, CA) ACTIVATED PARTIAL 2022-07-28 14:28:00 Yordy Thornton [facility] POCT GLUCOSE (AUTOMATED) 2022-07-28 12:52:00 Brennan Love [facility] HB ECG ROUTINE & RHYTHM 2022-07-28 10:09:24 Scooter Barroso [facility] CREATINE KINASE 2022-07-28 08:02:00 [facility] PROTEIN 2022-07-28 08:02:00 Yordy Thornton [facility] COMP. METABOLIC PANEL 2022-07-28 08:02:00 Yordy Thornton [facility] ([id number]) [facility] VANCOMYCIN RANDOM LEVEL 2022-07-28 08:02:00 Yordy Thornton [facility] SEDIMENTATION RATE 2022-07-28 08:02:00 Yordy Thornton [facility] CBC WITH DIFF 2022-07-28 08:02:00 Yordy Thornton [facility] GLYCOSYLATED HEMOGLOBIN 2022-07-28 08:02:00 Yordy Thornton [facility] (A1C) [facility] PROTHROMBIN TIME / INR 2022-07-28 08:02:00 Yordy Thornton [facility] ACTIVATED PARTIAL 2022-07-28 08:02:00 Yordy Thornton [facility] MRSA / MSSA SCREEN BY 2022-07-28 08:02:00 Yordy Thornton [facility] PCR, [facility] POCT GLUCOSE (AUTOMATED) 2022-07-28 08:01:00 Brennan Love [facility] COMP. METABOLIC PANEL 2022-07-19 02:58:00 Adolfo Hurley [facility] ([id number]) [facility] CBC WITH DIFF 2022-07-19 02:58:00 Adolfo Hurley [facility] NOTICE OF PRIVACY 2022-07-19 02:27:02 Doctor Unassigned, No [facility] PRACTICES Name [facility] CONSENT/REFUSAL FOR 2022-07-19 02:25:51 Doctor Unassigned, [facility] Name [facility] POC GLUCOSE 2022-07-03 16:21:00 Naif Cartagena Ho spital POC GLUCOSE 2022-07-03 12:18:00 Naif Cartagena Ho spital POC GLUCOSE 2022-07-03 01:29:00 Naif Cartagena Ho spital POC GLUCOSE 2022-07-02 21:46:00 Naif Cartagena spital POC GLUCOSE 2022-07-02 16:16:00 Naif Cartagena Ho spital POC GLUCOSE 2022-07-02 12:16:00 Naif Cartagena Ho spital BASIC METABOLIC PANEL 2022-07-02 10:11:00 [facility] ESTIMATED GFR 2022-07-02 10:11:00 [facility] POC GLUCOSE 2022-07-02 01:23:00 Francesca Stevens spital POC GLUCOSE 2022-07-01 21:46:00 Francesca Stevens spital XR CHEST 1 VW PORTABLE 2022-07-01 20:15:43 Hilda [facility] PICC INSERTION REQUEST 2022-07-01 20:09:45 Michelle [facility] POC GLUCOSE 2022-07-01 16:17:00 Francesca Stevens spital CARBAPENEMASE GENES 2022-07-01 16:15:00 Hilda [facility] POC GLUCOSE 2022-07-01 12:23:00 Hilda [facility]ital VANCOMYCIN LEVEL, RANDOM 2022-07-01 11:14:00 Wilberto Joe [facility] POC GLUCOSE 2022-07-01 01:24:00 Francesca Stevens spital POC GLUCOSE 2022-06-30 22:08:00 Francesca Stevens spital POC GLUCOSE 2022-06-30 16:12:00 Francesca Stevens spital CARBAPENEMASE GENES 2022-06-30 15:00:[facility] 2022-06-30 12:23:00 Francesca Stevens spital BASIC METABOLIC PANEL 2022-06-30 11:31:00 Hilda [facility] CBC WITH PLATELET AND 2022-06-30 11:31:00 Hilda [facility] DIFFERENTIAL ESTIMATED GFR 2022-06-30 11:31:00 Francesca Stevens spital POC GLUCOSE 2022-06-30 01:47:00 Younis, Francesca [facility] POC GLUCOSE 2022-06-29 22:47:00 Younis, Francesca [facility] POC GLUCOSE 2022-06-29 17:19:00 Younis, Francesca [facility] POC GLUCOSE 2022-06-29 13:13:00 Younis, Francesca [facility] POC GLUCOSE 2022-06-29 02:41:00 Younis, Francesca [facility] POC GLUCOSE 2022-06-28 22:40:00 Younis, Francesca [facility] POC GLUCOSE 2022-06-28 17:47:00 Younis, Francesca [facility] POC GLUCOSE 2022-06-28 13:30:00 Younis, Francesca [facility] BASIC METABOLIC PANEL 2022-06-28 12:11:00 [facility] ESTIMATED GFR 2022-06-28 12:11:00 Younis, Francesca [facility] POC GLUCOSE 2022-06-28 02:28:00 Younis, Francesca [facility] POC GLUCOSE 2022-06-27 22:12:00 Younis, Francesca [facility] POC GLUCOSE 2022-06-27 17:26:00 Younis, Francesca [facility] POC GLUCOSE 2022-06-27 13:29:00 Younis, Francesca [facility] POC GLUCOSE 2022-06-27 02:09:00 Younis, Francesca [facility] POC GLUCOSE 2022-06-26 23:37:00 Francesca Stevens Ho spital FUNGUS CULTURE 2022-06-26 23:17:00 Davin Walker Ho spital AFB CULTURE 2022-06-26 23:17:00 Davin Walker Ho spital GRAM STAIN 2022-06-26 23:17:00 Davin Walker Ho spital AFB STAIN 2022-06-26 23:17:00 Davin Walker Ho spital AFB CULTURE 2022-06-26 23:09:00 Davin Walker Ho spital FUNGUS SMEAR 2022-06-26 23:09:00 Davin Walker Ho spital AFB STAIN 2022-06-26 23:09:00 [facility] spital FUNGUS CULTURE 2022-06-26 23:09:00 [facility] spital WA AN ELECTIVE 2022-06-26 22:52:00 Jonathan Danielle [facility] SUPRAGLOTTIC AIRWAY DEBRIDEMENT, LOWER 2022-06-26 22:30:[address] [facility] EXTREMITY ANAEROBIC CULTURE 2022-06-26 22:17:[address] [facility] AEROBIC CULTURE 2022-06-26 22:17:00 [facility] spital TISSUE CULTURE 2022-06-26 22:09:00 [facility] spital ANAEROBIC CULTURE 2022-06-26 22:09:[address] [facility] POC GLUCOSE 2022-06-26 21:46:00 Francesca Stevens spital POC GLUCOSE 2022-06-26 18:45:00 [facility] VANCOMYCIN LEVEL, RANDOM 2022-06-26 15:33:00 [facility] POC GLUCOSE 2022-06-26 14:15:00 [facility] CBC WITH PLATELET AND 2022-06-26 11:43:00 [facility] DIFFERENTIAL BASIC METABOLIC PANEL 2022-06-26 11:43:00 [facility] MAGNESIUM LEVEL 2022-06-26 11:43:00 [facility] Hospital[facility] PROTHROMBIN TIME WITH INR 2022-06-26 11:43:00 Louisa Escobar [facility] ESTIMATED GFR 2022-06-26 11:43:00 [facility] POC GLUCOSE 2022-06-26 02:46:00 Francesca Stevens spital LACTIC ACID LEVEL, SEPSIS 2022-06-26 02:02:00 [facility] - NOW AND REPEAT 2X EVERY 3 HOURS POC GLUCOSE 2022-06-25 22:12:00 Francesca Stevens spital LACTIC ACID LEVEL, SEPSIS 2022-06-25 22:06:00 [facility] - NOW AND REPEAT 2X EVERY 3 HOURS ECG 12-LEAD 2022-06-25 19:43:10 [facility] INFLUENZA ANTIGEN TEST, 2022-06-25 19:18:00 [facility] REFLEX NEGATIVE TO RPP RESPIRATORY PATHOGEN 2022-06-25 19:18:00 [facility] PANEL WITH COVID-19 RT-PCR METHICILLIN-RESISTANT 2022-06-25 19:15:00 [facility] STAPHYLOCOCCUS AUREUS (MRSA), LEILANI LACTIC ACID LEVEL, SEPSIS 2022-06-25 19:01:00 [facility] - NOW AND REPEAT 2X EVERY 3 HOURS XR CHEST 1 VW PORTABLE 2022-06-25 18:53:03 [facility]lo[facility] hospitalm[facility] XR FEMUR 2 VW LEFT 2022-06-25 18:52:28 [facility] BLOOD CULTURE, AEROBIC & 2022-06-25 18:05:00 [facility] ANAEROBIC BLOOD CULTURE, AEROBIC & 2022-06-25 18:00:00 [facility] ANAEROBIC CBC WITH PLATELET AND 2022-06-25 17:56:00 [facility] DIFFERENTIAL COMPREHENSIVE METABOLIC 2022-06-25 17:56:00 [facility] PANEL PROTHROMBIN TIME WITH INR 2022-06-25 17:56:00 [facility] ESTIMATED GFR 2022-06-25 17:56:00 [facility] Hospital[facility]loek[facility] hospitalm[facility] MAGNESIUM LEVEL 2022-06-25 17:56:00 [facility] POC GLUCOSE 2022-06-25 17:06:00 Francesca Stevens [facility] spital POC GLUCOSE 2022-05-14 17:15:00 Ron Pizano [facility] VENIPUNC NEED PHYS 2022-05-14 16:30:00 Padmini Zechariah [facility] SKILL,DX OR RX POC GLUCOSE 2022-05-14 13:17:00 Harinder [facility] CBC WITH PLATELET AND 2022-05-14 11:43:00 [facility] DIFFERENTIAL BASIC METABOLIC PANEL 2022-05-14 11:43:00 [facility] ESTIMATED GFR 2022-05-14 11:43:00 Harinder [facility] POC GLUCOSE 2022-05-14 02:36:00 [facility] P[facility]SE 2022-05-13 22:14:00 [facility] POC GLUCOSE 2022-05-13 17:21:00 [facility] POC GLUCOSE 2022-05-13 13:25:00 Harinder, [facility] CBC WITH PLATELET AND 2022-05-13 11:23:00 Harinder [facility] DIFFERENTIAL BASIC METABOLIC PANEL 2022-05-13 11:23:00 [facility] ESTIMATED GFR 2022-05-13 11:23:00 [facility] POC GLUCOSE 2022-05-13 02:26:00 [facility] POC GLUCOSE 2022 22:54:00 [facility] POC GLUCOSE 2022 17:23:00 [facility] POC GLUCOSE 2022 13:33:00 [facility] CBC WITH PLATELET AND 2022 10:15:00 [facility] DIFFERENTIAL BASIC METABOLIC PANEL 2022 10:15:00 [facility] ESTIMATED GFR 2022 10:15:00 [facility] POC GLUCOSE 2022 03:36:00 [facility] POC GLUCOSE 2022-05-11 22:17:00 [facility] BLOOD CULTURE, AEROBIC & 2022-05-11 21:45:00 Luczak, [facility] ANAEROBIC BLOOD CULTURE, AEROBIC & 2022-05-11 21:28:00 Nancy [facility] ANAEROBIC POC GLUCOSE 2022-05-11 17:11:00 Harinder [facility] POC GLUCOSE 2022-05-11 13:14:00 Harinder [facility] CBC WITH PLATELET AND 2022-05-11 10:35:00 Harinder [facility] DIFFERENTIAL BASIC METABOLIC PANEL 2022-05-11 10:35:00 Harinder [facility] ESTIMATED GFR 2022-05-11 10:35:00 [facility] POC GLUCOSE 2022-05-11 02:33:00 Harinder [facility] POC GLUCOSE 2022-05-10 22:49:00 Harinder [facility] BLOOD CULTURE, AEROBIC & 2022-05-10 22:13:00 Nancy [facility] ANAEROBIC HC NERVE BLOCK INJ 2022-05-10 19:31:21 [facility] FEMORAL SINGLE W IMG GUID HC ANESTH SCIATIC NERVE 2022-05-10 19:23:41 [facility] POC GLUCOSE 2022-05-10 18:34:00 [facility] SURGICAL PATHOLOGY 2022-05-10 18:13:00 [facility] RE[facility] [place] AN ELECTIVE 2022-05-10 17:24:00 Mari Gamboa [facility] SUPRAGLOTTIC AIRWAY AMPUTATION, BELOW KNEE 2022-05-10 16:57:00 Davin Walker [facility] POC GLUCOSE 2022-05-10 15:58:00 [facility] TTE COMPLETE, WO 2022-05-10 14:38:42 Mi Cruzhryn [facility] CONTRAST, W DOPPLER ([id number]) POC GLUCOSE 2022-05-10 13:14:00 [facility] CBC WITH PLATELET AND 2022-05-10 12:19:00 Harinder [facility] DIFFERENTIAL BASIC METABOLIC PANEL 2022-05-10 12:19:00 [facility] PARTIAL THROMBOPLASTIN 2022-05-10 12:19:00 [facility] TIME (PTT) PROTHROMBIN TIME WITH INR 2022-05-10 12:19:00 [facility]Edgardo[facility] ESTIMATED GFR 2022-05-10 12:19:00 [facility] POC GLUCOSE 2022-05-10 03:02:00 [facility] POC GLUCOSE 2022-05-09 22:30:00 [facility] POC GLUCOSE 2022-05-09 18:05:00 [facility] US ANKLE BRACHIAL INDEX 2022-05-09 17:33:01 Yakelin [facility] VANCOMYCIN LEVEL, RANDOM 2022-05-09 16:42:00 Kenneth Farr [facility] Scooter POC GLUCOSE 2022-05-09 13:14:00 [facility] CBC WITH PLATELET AND 2022-05-09 11:25:00 Jenna [facility] DIFFERENTIAL [facility] MAGNESIUM LEVEL 2022-05-09 11:25:00 Jenna [facility] COMPREHENSIVE METABOLIC 2022-05-09 11:25:00 TraceeazYakelin [facility]Cit[facility] PANEL G[facility]onera ESTIMATED GFR 2022-05-09 11:25:00 [facility] MANUAL DIFFERENTIAL 2022-05-09 11:25:00 Gail [facility] POC GLUCOSE 2022-05-09 02:55:00 Noman Brewer MRI FOOT WO CONTRAST LEFT 2022-05-09 02:37:17 [facility] POC GLUCOSE 2022-05-08 22:46:00 Noman Brewer spital COVID-19 QUALITATIVE 2022-05-08 22:35:00 Kenneth Farr [facility] RT-PCR Scooter XR FOOT 3+ VW LEFT 2022-05-08 19:44:29 [facility] Scooter BLOOD CULTURE, AEROBIC & 2022-05-08 19:34:00 Kenneth Farr [facility] ANAEROBIC Scooter CBC WITH PLATELET AND 2022-05-08 19:34:00 Chika, [facility] DIFFERENTIAL Scooter COMPREHENSIVE METABOLIC 2022-05-08 19:34:00 Chika [facility] PANEL Scooter C-REACTIVE PROTEIN 2022-05-08 19:34:00 [facility] SEDIMENTATION RATE 2022-05-08 19:34:00 [facility] ESTIMATED GFR 2022-05-08 19:34:00 Chika [facility] MANUAL DIFFERENTIAL 2022-05-08 19:34:00 Chika, [facility][1] POC GLUCOSE 2022-05-08 18:06:00 Chika [facility] o[facility] POC GLUCOSE 2022-04-19 22:41:00 July García [facility] CV TRANSESOPHAGEAL 2022-04-19 20:35:00 Sharon Mcmillan [facility] ECHOCARDIOGRAM W Angel CARDIOVERSION ECG 12-LEAD 2022-04-19 20:33:57 Jaspreet Cannon Emil [facility] POC GLUCOSE 2022-04-19 17:28:00 Ricky July [facility] POC GLUCOSE 2022-04-19 13:31:00 Ricky July [facility] CBC HEMOGRAM 2022-04-19 12:19:00 Ricky, July [facility] BASIC METABOLIC PANEL 2022-04-19 12:19:00 [facility] MAGNESIUM LEVEL 2022-04-19 12:19:00 Ricky July [facility] ESTIMATED GFR 2022-04-19 12:19:00 Ricky July [facility] POC GLUCOSE 2022-04-19 10:28:00 Ricky July [facility] POC GLUCOSE 2022-04-19 06:29:00 Nadimpalli, July [facility] POC GLUCOSE 2022-04-19 02:51:00 Nadimpalli, July [facility] POC GLUCOSE 2022-04-18 22:27:00 Nadimpalli, July [facility] POC GLUCOSE 2022-04-18 17:02:00 Nadimpalli, July [facility] POC GLUCOSE 2022-04-18 13:25:00 Nadimpalli, July [facility] CBC HEMOGRAM 2022-04-18 12:36:00 Nadimpalli, July [facility] BASIC METABOLIC PANEL 2022-04-18 12:36:00 [facility]ichigh[facility] center[facility] ESTIMATED GFR 2022-04-18 12:36:00 Nadimpalli, July [facility] POC GLUCOSE 2022-04-18 10:01:00 Nadimpalli, July [facility] POC GLUCOSE 2022-04-18 07:11:00 Nadimpalli, July [facility] URINE DRUGS OF ABUSE 2022-04-18 03:32:00 [facility] SCREEN POC GLUCOSE 2022-04-18 02:35:00 Nadimpalli, July [facility] POC GLUCOSE 2022-04-17 23:00:00 Nadimpalli, July [facility] NM MYOCARDIAL PERFUSION 2022-04-17 20:04:00 [facility] REST STRESS 1 DAY CV STRESS TEST NUCLEAR 2022-04-17 20:04:00 [facility] CARDIO POC GLUCOSE 2022-04-17 17:10:00 Nadimpalli, July [facility] POC GLUCOSE 2022-04-17 13:48:00 Nadimpalli, July [facility] BASIC METABOLIC PANEL 2022-04-17 11:17:00 [facility] CBC HEMOGRAM 2022-04-17 11:17:00 Nadimpalli, July [...] [facility] CBC HEMOGRAM 2022-04-16 09:46:00 Renetta Ascencio [facility] BASIC METABOLIC PANEL 2022-04-16 09:46:00 Nadimpalli, [facility] PARTIAL THROMBOPLASTIN 2022-04-16 09:46:00 Renetta Ascencio [facility] TIME (PTT) ESTIMATED GFR 2022-04-16 09:46:00 Uriel Pastor [facility]ital POC GLUCOSE 2022-04-16 06:16:00 Nadimpalli, July [facility] POC GLUCOSE 2022-04-16 02:38:00 Nadimpalli, July [facility] POC GLUCOSE 2022-04-15 23:20:00 Uriel Pastor [facility]ital PARTIAL THROMBOPLASTIN 2022-04-15 20:59:00 Renetta Ascencio [facility] TIME (PTT) POC GLUCOSE 2022-04-15 17:50:00 Uriel Pastor spital PARTIAL THROMBOPLASTIN 2022-04-15 14:26:00 Renetta Ascencio [facility] TIME (PTT) POC GLUCOSE 2022-04-15 13:50:00 Uriel Pastor spital CBC HEMOGRAM 2022-04-15 09:50:00 elisabet [facility] HERPES SIMPLEX VIRUS BY 2022-04-15 09:50:00 [facility] PCR HIV 1/2 ANTIGEN/ANTIBODY, 2022-04-15 09:50:00 [facility] FOURTH GENERATION, WITH REFLEXES BASIC METABOLIC PANEL 2022-04-15 09:50:00 Barbaraalljulita [facility] ESTIMATED GFR 2022-04-15 09:50:00 Uriel [facility] POC GLUCOSE 2022-04-15 09:49:00 Uriel Pastor spital POC GLUCOSE 2022-04-15 06:33:00 Uriel Pastor spital POC GLUCOSE 2022-04-15 05:30:00 Uriel Pastor spital PARTIAL THROMBOPLASTIN 2022-04-15 05:29:[address] [facility] TIME (PTT) POC GLUCOSE 2022-04-15 02:07:00 Uriel Pastor spital POC GLUCOSE 2022-04-14 23:24:00 Uirel Pastor [facility]ital PARTIAL THROMBOPLASTIN 2022-04-14 22:35:00 [facility] GLUCOSE 2022-04-14 17:22:00 Uriel Pastor spital URINALYSIS SCREEN AND 2022-04-14 17:00:00 Ugelisabet [facility] MICROSCOPY, WITH REFLEX TO CULTURE TTE COMPLETE, W CONTRAST, 2022-04-14 16:06:00 [facility] D[facility]ER ([id number]) PARTIAL THROMBOPLASTIN 2022-04-14 15:38:00 [facility] POC GLUCOSE 2022-04-14 13:37:00 Uriel Past[facility] CBC HEMOGRAM 2022-04-14 11:19:00 Ugelisabet [facility] BASIC METABOLIC PANEL 2022-04-14 11:19:00 [facility] MAGNESIUM LEVEL 2022-04-14 11:19:00 Fahad Costello ESTIMATED GFR 2022-04-14 11:19:00 Fahad Costello POC GLUCOSE 2022-04-14 10:26:00 Fahad Costello POC GLUCOSE 2022-04-14 07:01:00 Fahad Costello HEPATIC FUNCTION PANEL 2022-04-14 06:28:00 [facility] 2022-04-14 06:28[facility]00 [facility]LASTIN 2022-04-14 06:28:00 [facility] Efren POC GLUCOSE 2022-04-14 01:54:00 Fahad Costello POC GLUCOSE 2022-04-14 00:05:00 Fahad Costello XR ABDOMEN 1 VW 2022-04-13 23:25:05 René Baird spital POC GLUCOSE 2022-04-13 22:54:00 Fahad Costello ECG 12-LEAD 2022-04-13 21:50:51 [facility]OX[facility] 2022-04-13 21:01:00 [facility] MAGNESI[facility] LEVEL 2022-04-13 21:01:00 René Baird spital ESTIMATED GFR 2022-04-13 21:01:00 René Baird spital TROPONIN T 2022-04-13 21:01:00 René Baird spital PHOSPHORUS LEVEL 2022-04-13 21:01:00 René Baird ospital BASIC METABOLIC PANEL 2022-04-13 21:01:00 René Baird [facility] POC GLUCOSE 2022-04-13 20:54:00 Fahad Costello ECG 12-LEAD 2022-04-13 20:37:02 [facility] TROPONIN T 2022-04-13 20:16:00 [facility] 2022-04-13 19:03:00 [facility] Efren POC GLUCOSE 2022-04-13 14:07:00 Fahad Costello [facility] TROPONIN T 2022-04-13 13:25:00 [facility] TROPONIN T 2022-04-13 12:11:00 [facility] PARTIAL THROMBOPLASTIN 2022-04-13 12:11:00 [facility] TIME (PTT) PROTHROMBIN TIME WITH INR 2022-04-13 12:11:00 [facility] ANTI XA, UNFRACTIONATED 2022-04-13 12:11:00 [facility] ECG 12-LEAD 2022-04-13 11:43:39 [facility] POC GLUCOSE 2022-04-13 11:41:00 [facility] POC GLUCOSE 2022-04-13 07:07:00 [facility] COVID-19 QUALITATIVE 2022-04-13 05:26:00 [facility] RT-PCR [place] POC GLUCOSE 2022-04-13 05:13:00 [facility] POC GLUCOSE 2022-04-13 04:36:[address] [facility] [address] ANGIOGRAM PE CHEST 2022-04-13 01:07:30 [facility] [place] ECG 12-LEAD 2022-04-12 22:44:44 [facility] [place] XR CHEST 1 VW PORTABLE 2022-04-12 22:03:54 [facility] [place] ECG ED PRELIMINARY 2022-04-12 21:56:45 [facility] INTERPRETATION [place] CRITICAL CARE 2022-04-12 21:56:45 [facility] ILL/INJURED PATIENT INIT [place] 30-74 MIN CBC WITH PLATELET AND 2022-04-12 21:56:00 [facility] DIFFERENTIAL [place] COMPREHENSIVE METABOLIC 2022-04-12 21:56:00 [facility] PANEL [place] TROPONIN T 2022-04-12 21:56:00 [facility] [place] B NATRIURETIC PEPTIDE 2022-04-12 21:56:00 [facility] [place] ESTIMATED GFR 2022-04-12 21:56:00 [facility] [place] POC GLUCOSE 2022-03-14 21:43:00 Loquias, Elain [facility] POC GLUCOSE 2022-03-14 17:02:00 Loquias, [...] spital POC GLUCOSE 2022-03-12 21:31:00 Loquias, Elain [facility] LOWER EXTREMITY 2022-03-12 20:07:00 Davin Walker [facility] ANGIOGRAM,POSSIBLE ANGIOPLASTY,POSSIBLE STENT POC GLUCOSE 2022-03-12 15:51:00 Loquias, Elain [facility] CBC WITH PLATELET AND 2022-03-12 10:36:00 Ron Pizano [facility] DIFFERENTIAL BASIC METABOLIC PANEL 2022-03-12 10:36:00 Ron Pizano [facility] PROTHROMBIN TIME WITH INR 2022-03-12 10:36:00 [facility] ESTIMATED GFR 2022-03-12 10:36:00 Harinder [facility] POC GLUCOSE 2022-03-12 02:25:00 Harinder [facility] USPV RADAMES EXTREMITY 2022-03-11 23:31:00 [facility] BILATERAL POC GLUCOSE 2022-03-11 23:16:00 Harinder [facility] POC GLUCOSE 2022-03-11 17:42:00 [facility] 2022-03-11 13:36:00 Harinder [facility] CBC WITH PLATELET AND 2022-03-11 12:48:00 [facility] DIFFERENTIAL COMPREHENSIVE METABOLIC 2022-03-11 12:48:00 Ron Pizano [facility] PANEL ESTIMATED GFR 2022-03-11 12:48:00 [facility] P[facility]SE 2022-03-11 02:16:00 [facility] METHICILLIN-RESISTANT 2022-03-11 00:23:00 Laurence Abreu [facility] STAPHYLOCOCCUS AUREUS [place] (MRSA), LEILANI POC GLUCOSE 2022-03-10 22:58:00 [facility] VANCOMYCIN LEVEL, RANDOM 2022-03-10 20:31:00 Bridgette Hernandez [facility] POC GLUCOSE 2022-03-10 17:46:00 [facility] POC [facility]SE 2022-03-10 13:57:00 [facility] WITH PLATELET AND 2022-03-10 09:15:00 Harinder [facility] DIFFERENTIAL COMPREHENSIVE METABOLIC 2022-03-10 09:15:00 Harinder [facility] PANEL MAGNESIUM LEVEL 2022-03-10 09:15:00 [facility] ESTIMATED GFR 2022-03-10 09:15:00 [facility] POC GLUCOSE 2022-03-10 02:19:00 HarinderRon [facility] POC GLUCOSE 2022-03-09 22:28:00 Harinder [facility] METHICILLIN-RESISTANT 2022-03-09 18:20:00 HarinderRon [facility] STAPHYLOCOCCUS AUREUS (MRSA), LEILANI POC GLUCOSE 2022-03-09 17:16:00 Harinder Ron [facility] POC GLUCOSE 2022-03-09 08:46:00 [facility] GLU[facility]SE 2022-03-09 07:16:00 [facility] COVID-19 QUALITATIVE 2022-03-09 07:14:00 [facility] RT-PCR COMPREHENSIVE METABOLIC 2022-03-09 06:10:00 [facility] PANEL HEMOGLOBIN A1C 2022-03-09 06:10:00 Tonie-OgEdgar [facility] ospital Paroginog LIPID PANEL 2022-03-09 06:10:00 Tonie-Og, [facility] ospital [employer]og[employer]og XR FOOT 3+ VW LEFT 2022-03-09 05:56:37 [facility] BETA HYDROXYBUTYRATE 2022-03-09 05:43:00 [facility] CBC WITH PLATELET AND 2022-03-09 05:35:00 [facility] DIFFERENTIAL LACTIC ACID LEVEL, SEPSIS 2022-03-09 05:35:00 [facility] - NOW AND REPEAT 2X EVERY 3 HOURS VENOUS BLOOD GAS 2022-03-09 05:35:00 [facility] ESTIMATED GFR 2022-03-09 05:35:00 [facility] POC GLUCOSE 2022-03-09 03:55:00 Carroll, Yvonne [facility] POC GLUCOSE 2021-12-14 16:15:00 eRné De Jesus osleopoldotal Arnulfo POC GLUCOSE 2021-12-14 12:10:00 René De Jesus [facility] osleonel Arredondo POC GLUCOSE 2021-12-14 01:40:00 René De Jesus POC GLUCOSE 2021-12-13 21:17:00 René De Jesus shahramleonel Arredondo POC GLUCOSE 2021-12-13 16:05:00 René De Jesus POC GLUCOSE 2021-12-13 12:22:00 René De Jesus POC GLUCOSE 2021-12-13 01:36:00 René De Jesus osleopoldotal Arnulfo POC GLUCOSE 2021-12-12 22:00:00 René De Jesus nora Arredondo VENIPUNC NEED PHYS 2021-12-12 17:56:39 [facility] SKILL,DX OR RX POC GLUCOSE 2021-12-12 16:34:00 René De Jesus nora Arredondo POC GLUCOSE 2021-12-12 12:27:00 [facility] BASIC METABOLIC PANEL 2021-12-12 10:55:00 [facility] Arn[facility] CBC WITH PLATELET AND 2021-12-12 10:55:00 [facility] DIFFERENTIAL Arnulfo ESTIMATED GFR 2021-12-12 10:55:00 [facility] HenaoEarleneCONOÉ-19 ANTI-SPIKE IGG 2021-12-12 10:54:00 [facility] ANTIBODY TITER Harjinder ZZCOVID-19 SEROLOGY 2021-12-12 10:54:00 [facility] PATIENT SURVEILLANCE Harjinder POC GLUCOSE 2021-12-12 03:38:00 René De Jesus shahramleonel Arredondo POC GLUCOSE 2021-12-12 01:22:00 [facility] POC GLUCOSE 2021-12-11 22:32:00 René De Jesus nora Arredondo POC GLUCOSE 2021-12-11 17:04:00 René De Jesus nora Arredondo POC GLUCOSE 2021-12-11 13:53:00 René De Jesus nora Arredondo POC GLUCOSE 2021-12-11 08:48:00 Bavare, Arusha [facility] 2021-12-11 07:29:00 [facility] POC GLUCOSE 2021-12-11 06:36:00 [facility] COVID-19 QUALITATIVE 2021-12-11 05:55:00 Wilberto Carbajal [facility] RT-PCR POC GLUCOSE 2021-12-11 05:34:00 Wilberto Carbajal [facility] CBC WITH PLATELET AND 2021-12-11 04:02:00 Wilberto Carbajal [facility] DIFFERENTIAL COMPREHENSIVE METABOLIC 2021-12-11 04:02:00 Wilberto aCrbajal [facility] PANEL LIPASE LEVEL 2021-12-11 04:02:00 [facility] BETA HYDROXYBUTYRATE 2021-12-11 04:02:00 Wilberto Carbajal [facility] VENOUS BLOOD GAS 2021-12-11 04:02:00 [facility] ESTIMATED GFR 2021-12-11 04:02:00 Wilberto Carbajal [facility] CT ABDOMEN PELVIS WO 2021-12-11 02:47:59 Wilberto Carbajal [facility] CONTRAST URINE CULTURE 2021-12-11 02:24:00 [facility] URINALYSIS SCREEN AND 2021-12-11 01:10:00 Wilberto Carbajal [facility] MICROSCOPY, WITH REFLEX TO CULTURE URINE CULTURE 2021-11-08 17:34:00 Thong Cartagena spital URINALYSIS SCREEN AND 2021-11-08 16:54:00 Thong Cartagena [facility] MICROSCOPY, WITH REFLEX TO CULTURE CT RENAL STONE PROTOCOL 2021-11-08 16:35:59 Thong Cartagena [facility] CBC WITH PLATELET AND 2021-11-08 16:05:00 Thong Cartagena [facility] DIFFERENTIAL BASIC METABOLIC PANEL 2021-11-08 16:05:00 Thong Cartagena [facility] LIPASE LEVEL 2021-11-08 16:05:00 Thong Cartagena spital HEPATIC FUNCTION PANEL 2021-11-08 16:05:00 Thong Cartagena [facility] ESTIMATED GFR 2021-11-08 16:05:00 Thong Cartagena Ho spital POC GLUCOSE 2021-11-08 15:52:00 Thong Cartagena spital ECG ED PRELIMINARY 2021-10-11 04:49:00 Norberto Lanier [facility] INTERPRETATION ECG 12-LEAD 2021-10-11 03:14:36 [facility] CBC WITH PLATELET AND 2021-10-11 02:57:00 [facility] DIFFERENTIAL COMPREHENSIVE METABOLIC 2021-10-11 02:57[facility] T 2021-10-11 02:57:00 [facility] B NATRIURETIC PEPTIDE 2021-10-11 02:57:00 [facility] PROT[facility] TIME WITH INR 2021-10-11 02:57:00 Norberto Lanier [facility] PARTIAL THROMBOPLASTIN 2021-10-11 02:57:00 [facility] Annistonson [facility] TIME (PTT) ESTIMATED GFR 2021-10-11 02:57:[address] [facility] 2 VW 2021-10-11 02:05:13 [facility] DIABETIC FOOT EXAMINATION 2021-06-29 00:00:00 Virgilio Garcia [id number]. (8F) 2 MOST RECENT DIASTOLIC 2021-06-29 00:00:00 Virgilio Garcia 2.16.8 [id number]. BLOOD PRESSURE 80-89 MM 2 HG (HTN, CKD, CAD) (DM) (3079F) MOST RECENT SYSTOLIC 2021-06-29 00:00:00 Virgilio Garcia 2.16.84 [id number]. BLOOD PRESSURE 130-139 MM 2 HG (DM),(HTN, CKD, CAD) (3075F) NEGATIVE SCREEN FOR 2021-06-29 00:00:00 Virgilio Garcia [id number]. CLINICAL DEPRESSION, 2 FOLLOW-UP NOT REQUIRED (G8510) PATIENT IDENTIFIED A 2021-06-29 00:00:00 Virgilio Garcia [id number]. TOBACCO USER RECEIVED 2 TOBACCO CESSATION INTERVENTION (COUNSELING AND/OR PHARMACOTHERAPY) (G9906) SCREENING FOR TOBACCO USE 2021-06-29 00:00:00 Virgilio Garcia [id number]. (4004F) 2 PATIENT SCREENED FOR 2021-06-29 00:00:00 Jose Branch 2.16.84 [id number]. TOBACCO USE AND 2 IDENTIFIED A TOBACCO USER (G9902) XRAY FOOT 3 VIEWS - 2021-02-02 15:18:00 LopezJamin keenan [facility] ROUTINE CBC/DIFF 2021-02-02 15:12:00 Jamin Lopez alth BASIC METABOLIC PANEL 2021-02-02 15:12:00 Jamin Lopez [facility] CBC 2021-02-02 15:12:00 Jamin Lopez alth URINE CULTURE 2021-01-03 04:26:00 [facility] URINALYSIS SCREEN AND 2021-01-03 04:26:00 [facility] MICROSCOPY, WITH REFLEX Richard TO CULTURE LACTIC ACID LEVEL, SEPSIS 2021-01-03 03:04:00 [facility] - NOW AND REPEAT 2X EVERY Richard 3 HOURS TROPONIN 2021-01-03 03:04:00 [facility] US DUPLEX VENOUS LOWER 2021-01-03 01:53:13 [facility] EXTREMITY RIGHT [facility] ECG ED PRELIMINARY 2021-01-03 01:17:47 [facility] INTERPRETATION [facility] XR TIBIA FIBULA 2 VW 2021-01-03 01:05:31 [facility] RIGHT [facility] XR FOOT 3+ VW LEFT 2021-01-03 01:05:05 [facility] Richard ECG 12-LEAD 2021-01-03 00:52:38 [facility] Richard BLOOD CULTURE, AEROBIC & 2021-01-03 00:47:00 [facility] ANAEROBIC Richard BLOOD CULTURE, AEROBIC & 2021-01-03 00:45:00 [facility] ANAEROBIC Richard HC COMPLETE BLD COUNT 2021-01-03 00:43:00 [facility] W/AUTO DIFF Richard BASIC METABOLIC PANEL 2021-01-03 00:43:00 [facility] HEPATIC FUNCTION PANEL 2021-01-03 00:43:00 [facility] LACTIC ACID LEVEL, SEPSIS 2021-01-03 00:43:00 [facility] - NOW AND REPEAT 2X EVERY Richard 3 HOURS LIPASE LEVEL 2021-01-03 00:43:00 [facility] TROPONIN 2021-01-03 00:43:00 [facility] B NATRIURETIC PEPTIDE 2021-01-03 00:43:00 [facility] ESTIMATED GFR 2021-01-03 00:43:00 [facility] Richard Amputation 2020-08-04 00:00:00 [facility] [id number]. 2 [id number] 2020-07-04 00:00:00 DAVJO.04 [facility] [id number] 2020-07-04 00:00:00 DAVJO.04 [facility] [id number] 2020-07-04 00:00:00 DAVJO.04 [facility] [id number] 2020-07-04 00:00:00 DAVJO.04 [facility] [id number] 2020-07-04 00:00:00 DAVJO.04 [facility] [id number] 2020-07-04 00:00:00 DAVJO.04 [facility] [id number] 2020-07-04 00:00:00 DAVJO.04 [facility] [id number] 2020-07-04 00:00:00 DAVJO.04 [facility] [id number] 2020-07-01 00:00:00 JARKE [facility] [id number] 2020-07-01 00:00:00 JARKE [facility] [id number] 2020-07-01 00:00:00 JARKE [facility] [id number] 2020-07-01 00:00:00 CRISTIANO [facility] Annual Eye Exam - FOR [facility] [id number]. NON-DIABETICS ONLY 2 COLONOSCOPY IN ADULT [facility] [id number]. [id number]. (36174) 2 Patient received annual [facility] 2.16.840 .[id number]. dental check-up 2 Teeth [facility] [id number]. 2 Plan of Care Planned Activity [...] 21 yrs)] Future Scheduled 2023-01-16 Screening [facility] Test 13:17:08 malignant neoplasm of colon (procedure) [code = 359007160] Future Scheduled 2023-01-16 [facility] Test 13:17:08 malignant neoplasm of colon (procedure) [code = 871240223] Future Scheduled 2023-01-16 [facility] Test 13:17:08 malignant neoplasm of colon (procedure) [code = 862010113] Future Scheduled 2023-01-16 COVID-19 VACCINE (#1) [facility] Test 13:17:08 [code = COVID-19 VACCINE (#1)] Future Scheduled 2023-01-16 DIABETES: RETINAL EYE [facility] Test 13:17:08 EXAM [code = DIABETES: RETINAL EYE EXAM] Future Scheduled 2023-01-16 DIABETIC FOOT EXAM [facility] Test 13:17:08 [code = DIABETIC FOOT EXAM] Future Scheduled 2023-01-16 URINE MICROALBUMIN [facility] Test 13:17:08 [code = URINE MICROALBUMIN] Future Scheduled 2023-01-16 Hepatitis C screening [facility] Test 13:17:08 (procedure) [code = 993128434] Future Scheduled 2023-01-16 [facility] for [facility] Test 13:17:08 malignant neoplasm of colon (procedure) [code = 491207640] Future Scheduled 2023-01-16 [facility] Test 13:17:08 malignant neoplasm of colon (procedure) [code = 170041779] Future Scheduled 2023-01-16 [facility] for [facility] Test 13:17:08 malignant neoplasm of lung (procedure) [code = 364398160] Future Scheduled 2023-01-16 SHINGLES VACCINES ([facility] 13:17:08 of 2) [code = SHINGLES VACCINES (1 of 2)] Future Scheduled 2023-01-16 INFLUENZA VACCINE (#1) [facility] Test 13:17:08 [code = INFLUENZA VACCINE (#1)] Future Scheduled 2023-01-16 Scre[facility] Test 13:17:08 malignant neoplasm of colon (procedure) [code = 620735286] Future Scheduled 2023-01-16 [facility] Test 13:17:08 malignant neoplasm of colon (procedure) [code = 210865104] Future Scheduled 2023-01-16 [facility] Test 13:17:08 malignant neoplasm of colon (procedure) [code = 687976782] Future Scheduled 2023-01-16 COVID-19 VACCINE (#1) [facility] Test 13:17:08 [code = COVID-19 VACCINE (#1)] Future Scheduled 2023-01-16 DIABETES: RETINAL EYE [facility] Test 13:17:08 EXAM [code = DIABETES: RETINAL EYE EXAM] Future Scheduled 2023-01-16 DIABETIC FOOT EXAM [facility] Test 13:17:08 [code = DIABETIC FOOT EXAM] Future Scheduled 2023-01-16 URINE MICROALBUMIN [facility] Test 13:17:08 [code = URINE MICROALBUMIN] Future Scheduled 2023-01-16 Hepatitis C screening [facility] Test 13:17:08 (procedure) [code = 813977616] Future Scheduled 2023-01-16 [facility] Test 13:17:08 malignant neoplasm of colon (procedure) [code = 016836063] Future Scheduled 2023-01-16 Screening for [facility] Test 13:17:08 malignant neoplasm of colon (procedure) [code = 909615748] Future Scheduled 2023-01-16 Screening for [facility] Test 13:17:08 malignant neoplasm of lung (procedure) [code = 721602203] Future Scheduled 2023-01-16 SHINGLES VACCINES (1 [facility] Test 13:17:08 of 2) [code = SHINGLES VACCINES (1 of 2)] Future Scheduled 2023-01-16 INFLUENZA VACCINE (#1) [facility] Test 13:17:08 [code = INFLUENZA VACCINE (#1)] Future Scheduled 2022-12-20 IMM [facility] Test 00:00:00 (>/= 19 yrs) [code = IMM Influenza Seasonal (>/= 19 yrs)] Future Scheduled 2022-12-20 [facility]MM [facility] Test 00:00:00 (>/= 19 yrs) [code = IMM Influenza Seasonal (>/= 19 yrs)] Future Scheduled 2022-11-21 Scre[facility] Test 10:36:19 malignant neoplasm of colon (procedure) [code = 514479639] Future Scheduled 2022-11-21 [facility] Test 10:36:19 malignant neoplasm of colon (procedure) [code = 931453292] Future Scheduled 2022-11-21 [facility] Test 10:36:19 malignant neoplasm of colon (procedure) [code = 389104045] Future Scheduled 2022-11-21 COVID-19 VACCINE (#1) [facility] Test 10:36:19 [code = COVID-19 VACCINE (#1)] Future Scheduled 2022-11-21 DIABETES: RETINAL EYE [facility] Test 10:36:19 EXAM [code = DIABETES: RETINAL EYE EXAM] Future Scheduled 2022-11-21 [facility] Test 10:36:19 [code = DIABETIC FOOT EXAM] Future Scheduled 2022-11-21 [facility] Test 10:36:19 [code = URINE MICROALBUMIN] Future Scheduled 2022-11-21 Hepatitis C screening [facility] Test 10:36:19 (procedure) [code = 599337620] Future Scheduled 2022-11-21 [facility] Test 10:36:19 malignant neoplasm of colon (procedure) [code = 395539636] Future Scheduled 2022-11-21 [facility] Test 10:36:19 malignant neoplasm of colon (procedure) [code = 597537836] Future Scheduled 2022-11-21 [facility] Test 10:36:19 malignant neoplasm of lung (procedure) [code = 745934241] Future Scheduled 2022-11-21 SHINGLES VACCINES (1 [facility] 10:36:19 of 2) [code = SHINGLES VACCINES (1 of 2)] Future Scheduled 2022-11-21 [facility]ACCINE [facility] 10:36:19 [code = INFLUENZA VACCINE] Future Scheduled 2022-11-21 Scre[facility] Test 10:36:19 malignant neoplasm of colon (procedure) [code = 008437793] Future Scheduled 2022-11-21 [facility] Test 10:36:19 malignant neoplasm of colon (procedure) [code = 906451281] Future Scheduled 2022-11-21 [facility] Test 10:36:19 malignant neoplasm of colon (procedure) [code = 503384306] Future Scheduled 2022-11-21 COVID-19 VACCINE (#1) [facility] 10:36:19 [code = COVID-19 VACCINE (#1)] Future Scheduled 2022-11-21 DIABETES: RETINAL EYE [facility] 10:36:19 EXAM [code = DIABETES: RETINAL EYE EXAM] Future Scheduled 2022-11-21 DI[facility]OT [facility]AM [facility] 10:36:19 [code = DIABETIC FOOT EXAM] Future Scheduled 2022-11-21 [facility] 10:36:19 [code = URINE MICROALBUMIN] Future Scheduled 2022-11-21 Hepatitis C screening [facility] Test 10:36:19 (procedure) [code = 088174233] Future Scheduled 2022-11-21 Screening for [facility] Test 10:36:19 malignant neoplasm of colon (procedure) [code = 970048810] Future Scheduled 2022-11-21 Screening for [facility] Test 10:36:19 malignant neoplasm of colon (procedure) [code = 663149133] Future Scheduled 2022-11-21 Screening for [facility] Test 10:36:19 malignant neoplasm of lung (procedure) [code = 179104799] Future Scheduled 2022-11-21 SHINGLES VACCINES (1 [facility] 10:36:19 of 2) [code = SHINGLES VACCINES (1 of 2)] Future Scheduled 2022-11-21 [facility]ACCINE [facility] 10:36:19 [code = INFLUENZA VACCINE] Future Scheduled 2022-11-21 Screening for [facility] Test 10:36:19 malignant neoplasm of colon (procedure) [code = 589179801] Future Scheduled 2022-11-21 Screening for [facility] Test 10:36:19 malignant neoplasm of colon (procedure) [code = 091296632] Future Scheduled 2022-11-21 Screening for [facility] Test 10:36:19 malignant neoplasm of colon (procedure) [code = 423945738] Future Scheduled 2022-11-21 [facility] 10:[facility]:19 [code = COVID-19 VACCINE (#1)] Future Scheduled 2022-11-21 DIABETES: RETINAL EYE [facility] Test 10:36:19 EXAM [code = DIABETES: RETINAL EYE EXAM] Future Scheduled 2022-11-21 [facility] 10:36:19 [code = DIABETIC FOOT EXAM] Future Scheduled 2022-11-21 [facility] 10:36:19 [code = URINE MICROALBUMIN] Future Scheduled 2022-11-21 Hepatitis C screening [facility] Test 10:36:19 (procedure) [code = 075418914] Future Scheduled 2022-11-21 Screening for [facility] Test 10:36:19 malignant neoplasm of colon (procedure) [code = 479096742] Future Scheduled 2022-11-21 Screening for [facility] Test 10:36:19 malignant neoplasm of colon (procedure) [code = 140538910] Future Scheduled 2022-11-21 Screening for [facility] Test 10:36:19 malignant neoplasm of lung (procedure) [code = 979987603] Future Scheduled 2022-11-21 [facility] 10:36:19 of 2) [code = SHINGLES VACCINES (1 of 2)] Future Scheduled 2022-11-21 ZZZ INFLUENZA VACCINE [facility] Test 10:36:19 [code = ZZZ INFLUENZA VACCINE] Future Scheduled 2022-10-10 Screening for [facility] Test 14:06:50 malignant neoplasm of colon (procedure) [code = 863113372] Future Scheduled 2022-10-10 Screening for [facility] Test 14:06:50 malignant neoplasm of colon (procedure) [code = 634434052] Future Scheduled 2022-10-10 Screening for [facility] Test 14:06:50 malignant neoplasm of colon (procedure) [code = 681562142] Future Scheduled 2022-10-10 COVID-19 VACCINE (#1) [facility] Test 14:06:50 [code = COVID-19 VACCINE (#1)] Future Scheduled 2022-10-10 DIABETES: RETINAL EYE [facility] Test 14:06:50 EXAM [code = DIABETES: RETINAL EYE EXAM] Future Scheduled 2022-10-10 [facility] Test 14:06:50 [code = DIABETIC FOOT EXAM] Future Scheduled 2022-10-10 [facility] Test 14:06:50 [code = URINE MICROALBUMIN] Future Scheduled 2022-10-10 Hepatitis C screening [facility] Test 14:06:50 (procedure) [code = 975381492] Future Scheduled 2022-10-10 Screening for [facility] Test 14:06:50 malignant neoplasm of colon (procedure) [code = 027524289] Future Scheduled 2022-10-10 Screening for [facility] Test 14:06:50 malignant neoplasm of colon (procedure) [code = 087551446] Future Scheduled 2022-10-10 Screening for [facility] Test 14:06:50 malignant neoplasm of lung (procedure) [code = 450373005] Future Scheduled 2022-10-10 SHINGLES VACCINES (1 [facility] Test 14:06:50 of 2) [code = SHINGLES VACCINES (1 of 2)] Future Scheduled 2022-10-10 INFLUENZA VACCINE [facility] 14:06:50 [code = INFLUENZA VACCINE] Future Scheduled 2022-09-26 Screening for [facility] Test 01:58:19 malignant neoplasm of colon (procedure) [code = 808951575] Future Scheduled 2022-09-26 Screening for [facility] Test 01:58:19 malignant neoplasm of colon (procedure) [code = 028519948] Future Scheduled 2022-09-26 Screening for [facility] Test 01:58:19 malignant neoplasm of colon (procedure) [code = 906916161] Future Scheduled 2022-09-26 COVID-19 VACCINE (#1) [facility] Test 01:58:19 [code = COVID-19 VACCINE (#1)] Future Scheduled 2022-09-26 DIABETES: RETINAL EYE [facility] Test 01:58:19 EXAM [code = DIABETES: RETINAL EYE EXAM] Future Scheduled 2022-09-26 [facility] Test 01:58:19 [code = DIABETIC FOOT EXAM] Future Scheduled 2022-09-26 [facility] Test 01:58:19 [code = URINE MICROALBUMIN] Future Scheduled 2022-09-26 Hepatitis C screening [facility] Test 01:58:19 (procedure) [code = 508949771] Future Scheduled 2022-09-26 Screening for [facility] Test 01:58:19 malignant neoplasm of colon (procedure) [code = 396789385] Future Scheduled 2022-09-26 Screening for [facility] Test 01:58:19 malignant neoplasm of colon (procedure) [code = 192467751] Future Scheduled 2022-09-26 Screening for [facility] Test 01:58:19 malignant neoplasm of lung (procedure) [code = 116893707] Future Scheduled 2022-09-26 SHINGLES VACCINES (1 [facility] Test 01:58:19 of 2) [code = SHINGLES VACCINES (1 of 2)] Future Scheduled 2022-09-26 INFLUENZA VACCINE [facility] 01:58:19 [code = INFLUENZA VACCINE] Future Scheduled 2022-09-19 COVID-19 VACCINE (#1) [facility] Test 11:07:21 [code = COVID-19 VACCINE (#1)] Future Scheduled 2022-09-19 DIABETES: RETINAL EYE [facility] Test 11:07:21 EXAM [code = DIABETES: RETINAL EYE EXAM] Future Scheduled 2022-09-19 DIABETIC FOOT EXAM [facility] Test 11:07:21 [code = DIABETIC FOOT EXAM] Future Scheduled 2022-09-19 URINE MICROALBUMIN [facility] Test 11:07:21 [code = URINE MICROALBUMIN] Future Scheduled 2022-09-19 Hepatitis C screening [facility] Test 11:07:21 (procedure) [code = 621072591] Future Scheduled 2022-09-19 Screening for [facility] Test 11:07:21 malignant neoplasm of colon (procedure) [code = 258912452] Future Scheduled 2022-09-19 Screening for [facility] Test 11:07:21 malignant neoplasm of lung (procedure) [code = 505021017] Future Scheduled 2022-09-19 SHINGLES VACCINES (1 [facility] Test 11:07:21 of 2) [code = SHINGLES VACCINES (1 of 2)] Future Scheduled 2022-09-19 INFLUENZA VACCINE [facility] 11:07:21 [code = INFLUENZA VACCINE] Future Scheduled 2022-08-19 COVID-19 VACCINE (#1) [facility] Test 10:24:38 [code = COVID-19 VACCINE (#1)] Future Scheduled 2022-08-19 DIABETES: RETINAL EYE [facility] 10:24:38 EXAM [code = DIABETES: RETINAL EYE EXAM] Future Scheduled 2022-08-19 DI[facility]ETIC FOOT [facility] Test 10:24:38 [code = DIABETIC FOOT EXAM] Future Scheduled 2022-08-19 [facility]ALBUMIN [facility] 10:24:38 [code = URINE MICROALBUMIN] Future Scheduled 2022-08-19 [facility] 10:24:38 (procedure) [code = 539901604] Future Scheduled 2022-08-19 [facility] 10:24:38 [code = COLONOSCOPY SCREENING] Future Scheduled 2022-08-19 Screening for [facility] Test 10:24:38 malignant neoplasm of lung (procedure) [code = 671982044] Future Scheduled 2022-08-19 SHINGLES VACCINES (1 [facility] Test 10:24:38 of 2) [code = SHINGLES VACCINES (1 of 2)] Future Scheduled 2022-08-19 INFLUENZA VACCINE [facility] 10:24:38 [code = INFLUENZA VACCINE] Future Scheduled 2022-08-19 COVID-19 [facility]INE (#1[facility] 10:24:38 [code = COVID-19 VACCINE (#1)] Future Scheduled 2022-08-19 DIABETES: RETINAL EYE [facility] 10:24:38 EXAM [code = DIABETES: RETINAL EYE EXAM] Future Scheduled 2022-08-19 DIABETIC FOOT [facility]AM [facility] 10:24:38 [code = DIABETIC FOOT EXAM] Future Scheduled 2022-08-19 [facility] 10:24:38 [code = URINE MICROALBUMIN] Future Scheduled 2022-08-19 [facility] Test 10:24:38 (procedure) [code = 319364319] Future Scheduled 2022-08-19 [facility] 10:24:38 [code = COLONOSCOPY SCREENING] Future Scheduled 2022-08-19 Screening for [facility] Test 10:24:38 malignant neoplasm of lung (procedure) [code = 344013678] Future Scheduled 2022-08-19 [facility]INES ([facility] 10:24:38 of 2) [code = [...] MICROALBUMIN] Future Scheduled 2022-08-19 Hepatitis C screening [facility] Test 10:24:38 (procedure) [code = 763065693] Future Scheduled 2022-08-19 COLONOSCOPY SCREENING [facility] Test 10:24:38 [code = COLONOSCOPY SCREENING] Future Scheduled 2022-08-19 Screening for [facility] Test 10:24:38 malignant neoplasm of lung (procedure) [code = 063349912] Future Scheduled 2022-08-19 SHINGLES VACCINES (1 [facility] 10:24:38 of 2) [code = SHINGLES VACCINES (1 of 2)] Future Scheduled 2022-08-19 INFLUENZA VACCINE [facility] 10:24:38 [code = INFLUENZA VACCINE] Future Scheduled 2022-08-19 COVID-19 [facility]ACCINE (#[facility] 10:24:38 [code = COVID-19 VACCINE (#1)] Future Scheduled 2022-08-19 DIABETES: RETINAL EYE [facility] 10:24:38 EXAM [code = DIABETES: RETINAL EYE EXAM] Future Scheduled 2022-08-19 DIABETIC FOOT EXAM [facility] Test 10:24:38 [code = DIABETIC FOOT EXAM] Future Scheduled 2022-08-19 [facility] 10:24:38 [code = URINE MICROALBUMIN] Future Scheduled 2022-08-19 Hepatitis C screening [facility] Test 10:24:38 (procedure) [code = 343803105] Future Scheduled 2022-08-19 [facility] 10:24:38 [code = COLONOSCOPY SCREENING] Future Scheduled 2022-08-19 Scre[facility] for [facility] Test 10:24:38 malignant neoplasm of lung (procedure) [code = 359252163] Future Scheduled 2022-08-19 SHINGLES VACCINES (1 Met [facility] Test 10:24:38 of 2) [code = SHINGLES VACCINES (1 of 2)] Future Scheduled 2022-08-19 INFLUENZA VACCINE [facility] Test 10:24:38 [code = INFLUENZA VACCINE] Future Scheduled 2022-01-19 IMM Influenza Seasonal [facility] Test 00:00:00 (>/= 19 yrs) [code = IMM Influenza Seasonal (>/= 19 yrs)] Future Scheduled 2022-01-19 IMM Influenza Seasonal [facility] Test 00:00:00 (>/= 19 yrs) [code = IMM Influenza Seasonal (>/= 19 yrs)] Future Scheduled 2021-12-17 HEPATITIS B VACCINES [facility] Test 10:00:08 (1 of 3 - 3-dose series) [code = HEPATITIS B VACCINES (1 of 3 - 3-dose series)] Future Scheduled 2021-12-17 COVID-19 VACCINE (#1) [facility] Test 10:00:08 [code = COVID-19 VACCINE (#1)] Future Scheduled 2021-12-17 Pneumococcal Vaccine: [facility] Test 10:00:08 Pediatrics (0 to 5 Years) and At-Risk Patients (6 to 64 Years) (1 - PCV) [code = Pneumococcal Vaccine: Pediatrics (0 to 5 Years) and At-Risk Patients (6 to 64 Years) (1 - PCV)] Future Scheduled 2021-12-17 Hepatitis C screening [facility] Test 10:00:08 (procedure) [code = 846202588] Future Scheduled 2021-12-17 COLONOSCOPY SCREENING [facility] Test 10:00:08 [code = COLONOSCOPY SCREENING] Future Scheduled 2021-12-17 SHINGLES VACCINES (1 [facility] Test 10:00:08 of 2) [code = SHINGLES VACCINES (1 of 2)] Future Scheduled 2021-12-17 INFLUENZA VACCINE [facility] Test 10:00:08 [code = INFLUENZA VACCINE] Future Scheduled 2021-12-17 HEPATITIS B VACCINES [facility] Test 10:00:08 (1 of 3 - 3-dose series) [code = HEPATITIS B VACCINES (1 of 3 - 3-dose series)] Future Scheduled 2021-12-17 COVID-19 VACCINE (#1) [facility] Test 10:00:08 [code = COVID-19 VACCINE (#1)] Future Scheduled 2021-12-17 Pneumococcal Vaccine: [facility] Test 10:00:08 Pediatrics (0 to 5 Years) and At-Risk Patients (6 to 64 Years) (1 - PCV) [code = Pneumococcal Vaccine: Pediatrics (0 to 5 Years) and At-Risk Patients (6 to 64 Years) (1 - PCV)] Future Scheduled 2021-12-17 Hepatitis C screening [facility] Test 10:00:08 (procedure) [code = 676884145] Future Scheduled 2021-12-17 COLONOSCOPY SCREENING [facility] Test 10:00:08 [code = COLONOSCOPY SCREENING] Future Scheduled 2021-12-17 SHINGLES VACCINES (1 Met [facility] Test 10:00:08 of 2) [code = SHINGLES VACCINES (1 of 2)] Future Scheduled 2021-12-17 INFLUENZA VACCINE [facility] Test 10:00:08 [code = INFLUENZA VACCINE] Diagnostic Test 2021-06-29 HEMOGLOBIN GLYCLATED Pending 14:06:03 (HGB A1C) (50018) [code = 71595] Diagnostic Test 2021-06-29 CBC & PLATELETS (AUTO) Pending 14:05:14 (45754) [code = 83603] Diagnostic Test 2021-06-29 MICROALBUMIN/CREAT. Pending 13:35:45 RATIO WITH CREATININE (ALONDRA URINE) (10017) [code = 82680] Diagnostic Test 2021-06-29 LIPID PANEL (92037) Pending 13:35:39 [code = 52224] Diagnostic Test 2021-06-29 COMPREHENSIVE Pending 13:35:39 METABOLIC PANEL (53638) [code = 77027] Future Scheduled [facility] 00:[facility]:00 malignant neoplasm of colon (procedure) [code = 907204703] Future Scheduled 2017 [facility] Test 00:00:00 malignant neoplasm of colon (procedure) [code = 353602305] Future Scheduled 2017 [facility] Test 00:00:00 malignant neoplasm of colon (procedure) [code = 511701239] Future Scheduled 2017 [facility] Test 00:00:00 malignant neoplasm of colon (procedure) [code = 772267252] Future Scheduled 2017 [facility] Test 00:00:00 malignant neoplasm of colon (procedure) [code = 237711181] Future Scheduled 2017 [facility] Test 00:00:00 malignant neoplasm of colon (procedure) [code = 698422464] Future Scheduled 2017 [facility] Test 00:00:00 malignant neoplasm of colon (procedure) [code = 858892679] Future Scheduled 2017 [facility] Test 00:00:00 malignant neoplasm of colon (procedure) [code = 393683019] Future Scheduled 2017 [facility] Test 00:00:00 malignant neoplasm of colon (procedure) [code = 432025317] Future Scheduled 2017 [facility] Test 00:00:00 malignant neoplasm of colon (procedure) [code = 153712389] Future Scheduled 2017 [facility] 00:00:00 malignant neoplasm of colon (procedure) [code = 074634303] Future Scheduled 2017 [facility] 00:00:00 malignant neoplasm of colon (procedure) [code = 050279798] Future Scheduled 2017 [facility] 00:00:00 malignant neoplasm of colon (procedure) [code = 668103202] Future Scheduled 1985 Diabetic foot [facility] Test 00:00:00 examination (regime/therapy) [code = 644770050] Future Scheduled 1985 [facility] 00:00:00 protein (procedure) [code = 997329225] Future Scheduled 1985 DM Retinal Exam [facility] 00:00:00 (Yearly) [code = DM Retinal Exam (Yearly)] Future Scheduled 1985 [facility] 00:00:00 examination (regime/therapy) [code = 744964739] Future Scheduled 1985 [facility] 00:00:00 protein (procedure) [code = 824159585] Future Scheduled 1985 [facility] 00:00:00 (Yearly) [code = DM Retinal Exam (Yearly)] Future Scheduled 1985 [facility] 00:00:00 examination (regime/therapy) [code = 367639295] Future Scheduled 1985 [facility] 00:00:00 protein (procedure) [code = 182909205] Future Scheduled 1985 [facility] 00:00:00 (Yearly) [code = DM Retinal Exam (Yearly)] Future Scheduled 1985 [facility] 00:00:00 examination (regime/therapy) [code = 978908944] Future Scheduled 1985 [facility] 00:00:00 protein (procedure) [code = 909858852] Future Scheduled 1985 [facility] 00:00:00 (Yearly) [code = DM Retinal Exam (Yearly)] Future Scheduled 1985 [facility] 00:00:00 examination (regime/therapy) [code = 644790048] Future Scheduled 1985 [facility] 00:00:00 protein (procedure) [code = 907735931] Future Scheduled 1985 DM [facility] 00:00:00 (Yearly) [code = DM Retinal Exam (Yearly)] Future Scheduled 1985 DM Foot Exam (Yearly) [facility] 00:00:00 [code = DM Foot Exam (Yearly)] Future Scheduled 1985 U[facility] 00:00:00 protein (procedure) [code = 286336991] Future Scheduled 1985 DM [facility] 00[facility]00:00 (Yearly) [code = DM Retinal Exam (Yearly)] Future Scheduled 1985 DM Foot Exam (Yearly) [facility] 00:00:00 [code = DM Foot Exam (Yearly)] Future Scheduled 1985 [facility] 00:00:00 protein (procedure) [code = 065344363] Future Scheduled 1985 [facility] 00:00:00 (Yearly) [code = DM Retinal Exam (Yearly)] Future Scheduled 1985 [facility] 00:00:00 examination (regime/therapy) [code = 918192406] Future Scheduled 1985 [facility] 00:00:00 protein (procedure) [code = 609583955] Future Scheduled 1985 DM [facility] 00[facility]00:00 (Yearly) [code = DM Retinal Exam (Yearly)] Future Scheduled 1985 [facility] 00:00:00 examination (regime/therapy) [code = 602678236] Future Scheduled 1985 [facility] 00:00:00 protein (procedure) [code = 939313794] Future Scheduled 1985 DM [facility] 00:00:00 (Yearly) [code = DM Retinal Exam (Yearly)] Future Scheduled 1985 [facility] 00:00:00 examination (regime/therapy) [code = 049858795] Future Scheduled 1985 [facility] 00:00:00 protein (procedure) [code = 023510524] Future Scheduled 1985 [facility] 00:00:00 (Yearly) [code = DM Retinal Exam (Yearly)] Future Scheduled 1985 [facility] 00:00:00 examination (regime/therapy) [code = 505989124] Future Scheduled 1985 U[facility] 00:00:00 protein (procedure) [code = 147606294] Future Scheduled 1985 [facility] 00:00:00 (Yearly) [code = DM Retinal Exam (Yearly)] Future Scheduled 1985 [facility] 00:00:00 examination (regime/therapy) [code = 876078437] Future Scheduled 1985 [facility] 00:00:00 protein (procedure) [code = 274289257] Future Scheduled 1985 [facility] 00:00:00 (Yearly) [code = DM Retinal Exam (Yearly)] Future Scheduled 1985 [facility] 00:00:00 protein (procedure) [code = 141138839] Future Scheduled 1985 DM [facility] 00:00:00 (Yearly) [code = DM Retinal Exam (Yearly)] Future Scheduled 1985 [facility] 00:00:00 examination (regime/therapy) [code = 418435278] Future Scheduled 1967 COVID-19 Vaccine (#1) [facility] Test 00:00:00 measurement (procedure) [code = 41505633] Future Scheduled 1967 Hem[facility] A1c [facility] 00:00:00 measurement (procedure) [code = 21602222] Future Scheduled 1967 Hemoglobin A1c [facility] 00:00:00 measurement (procedure) [code = 54834001] Future Scheduled 1967 Hemoglobin A1c [facility] 00:00:00 measurement (procedure) [code = 21051238] Future Scheduled 1967 [facility]oglobin A1c [facility] 00:00:00 measurement (procedure) [code = 38579369] Future Scheduled 1967 Hemoglobin A1c [facility] 00:00:00 measurement (procedure) [code = 95343288] Future Scheduled 1967 Fluoride Varnish [facility] 00:00:00 = Fluoride Varnish] Future Scheduled 1967 Hemoglobin A1c [facility] 00:00:00 measurement (procedure) [code = 09233569] Future Scheduled 1967 Fluoride Varnish [facility] 00:00:00 = Fluoride Varnish] Future Scheduled 1967 [facility]oglobin A1c [facility] 00:00:00 measurement (procedure) [code = 98553664] Future Scheduled 1967 [facility]oglobin A1c [facility] 00:00:00 measurement (procedure) [code = 38902476] Future Scheduled 1967 [facility]1c [facility] 00:00:00 measurement (procedure) [code = 15098414] Future Scheduled 1967 Hemoglobin A1c [facility] 00:[facility]:00 measurement (procedure) [code = 23377618] Future Scheduled 1967 [facility]oglobin A1c [facility] 00:00:00 measurement (procedure) [code = 34920094] Future Scheduled 1967 Hemoglobin A1c [facility] 00:00:00 measurement (procedure) [code = 11497855] Encounters Start End Encounter Admission Attending Care Care Encounter Source Date/Time Date/Time Type Type Clinicians Facility Department ID 2023-01-29 Outpatient [id number] [facility] 20:52:41 [id number] l -[id number] [id number] [facility] [id number] Outpatient [id number] [facility] 14:44:43 [id number] [id number]-BC2 FF6-482A- B l -VN45-V99 [id number] [facility] [id number] [id number] 2022-12-13 Outpatient [id number] [facility] 14:44:37 [id number]-5307 [id number]-[id number] M0J-5124- 9 l -5P1F-SZH [id number] [facility] [id number] 2022-12-10 Outpatient [id number] [facility] 22:20:45 [id number]-910 7V4-460J- 9 l -9100-AED [id number] [facility] [id number] [id number] 2022-12-05 Outpatient [id number] 20FB-3 [facility] 00:38:36 [id number]-815 1N2-808N- 8 l -8153-A18 3-[id number] 153-[id number] [facility] [id number] [id number] 2022-10-14 Outpatient [id number] [id number] [facility] 00:41:12 [id number] [id number]-51I BB3-4D6D- 9 l -78P2-777 [id number] [facility] [id number] CBB [id number] 2022-09-26 Outpatient [id number] 2C28-B [facility] 22:55:52 BDD8-45A9 D8-89E1-S79 DD8-45A9- A l -X13N-434 [id number]-[id number] [id number]-[id number] [facility] [id number] 9CA [id number] 2022-09-23 Outpatient [id number] [id number] [facility] 15:40:06 [id number] [id number] 4D7-2246- 8 l -8170-0E7 [id number] [facility] [id number] 1C5 [id number] 2022-09-18 Outpatient [id number] ED90-5 [facility] 10:27:41 541D-[id number] 1D-469D-BD0 41D-469D- B l -NH58-78U [id number] [facility] [id number] 2022-09-05 Outpatient [id number] [id number] [facility] 19:47:40 [id number] 50-9G70-1UC 550-4F68- 9 l -9RK7-X91 8-S880H3RM2 EF8-C365D8 [facility] [id number] C31 [id number] 2022-08-22 Outpatient 502KG3RP- 977UT5SV-DX 040A D3FD-E Memoria 13:17:42 EEDC-4D67 DC-4Z99-U9R EDC-4D67- B l -S2F0-PU5 8-NO1363001 6C7-PN5913 Guille [id number] 901 015190 0875-05-01 Outpatient 73124S87- 15199D25-Y4 2664 7F96-A Memoria 10:26:06 N0W4-5U71 D0-4W44-ZA1 2Q2-4V00- B l -GG4F-O78 D-E44X252T2 I4H-Z42A74 Guille G047X2844 284 8F9443 2022-07-01 Outpatient 20XB82D5- 50ZQ85A5-2N 52CB 02A8-1 Memoria 18:22:57 6D76-5Y7X 86-3V2H-J3L P85-8C2F- A l -M5FV-831 F-412H044YR 7DF-972C65 Guille M440GR733 841 5HN804 2022-06-25 Outpatient A328OJ6E- L818YM7H-25 C555 AD3A-6 Memoria 13:13:28 6801-408F 01-408F-9CD 801-408F- 9 l -5VB9-1H1 5-9J86M9603 CD5-9B11D0 Guille 2K6444YYV CAF 333CAF 2022-06-21 Outpatient 805531RZ- 881434ZF-67 2314 01CA-8 Memoria 16:24:21 8273-427F 73-427F-927 273-427F- 9 l -9279-910 9-3267690FU 279-328691 Guille 9848CI49H 00D 8DD00D 2022-05-10 Outpatient 6Q5SR073- 5X7ER015-E5 2E9D D710-A Memoria 06:40:42 F57W-72D9 5F-09J8-68O 65F-48A2- 9 l -07N8-0F7 9-0Z964CSXS 0U4-7F321S Guille 74EZXP161 329 JED889 2022-05-08 Outpatient APE3GOJ3- KPX4RRC9-55 BEF6 CBA3-5 Memoria 15:37:53 503B-4880 3B-4880-9B6 03B-4880- 9 l -4T8Q-8OX D-0AIO13244 D1U-8AVN62 Guille D45797H86 C18 509C18 2022-04-19 Outpatient 5GTC1O1G- 0WTH5V0H-17 1BBB 5C0D-8 Memoria 13:59:31 69G3-0782 F1-4973-998 9W8-1002- 9 l -998B-F76 B-I02129892 98B-M11228 Guille [id number] 327 558767 4192-12-28 Outpatient 27ZTB47I- 11AEV83X-OK 79BE F91E-D Memoria 13:31:43 DAD3-4873 D3-4873-877 AD3-4873- 8 l -8771-2E6 1-2N1S691I2 771-2E6E91 Guille T575G6249 342 3F2831 2022-04-13 Outpatient 8284Z0K3- 9710Y8A8-44 4505 A0B3-1 Memoria 15:36:01 15FB-4C6B FB-8K5F-T50 5FB-4C6B- A l -I96N-S54 B-Q67E1Z618 59B-D42D0C Guille L8A390B0F A6F 833A6F 2022-04-12 Outpatient 08T0HBZ4- 65I7ESR6-3P 06B9 BCB5-0 Memoria 15:30:39 2Z83-3TC1 07-3AI7-572 J19-9WS3- 9 l -9202-AD6 2-UT54W75HL 202-AD61D6 Guille 2V28BXE49 A84 7EAA84 2022-03-11 Outpatient 741V7BJ7- 624E6XG7-01 938D 5EE5-8 Memoria 19:30:21 857A-4A82 7A-4A21-K8W 57A-4A82- B l -R3T8-7I8 5-5I85350GJ 4B7-8N8747 Guille 0326DF324 155 7LD237 2022-03-08 Outpatient 9V463000- 2A846281-14 3A45 0898-9 Memoria 21:44:29 9339-4C22 39-8V61-Y96 339-4C22- A l -O60S-48V E-52U18VWSA 45E-85D07A Guille 83CCKZ567 545 IDF704 2022-01-04 Outpatient 1MHW9YFT- 8YSW2CNE-1H 9DDA 6CAA-4 Memoria 07:00:32 5O77-6366 77-4012-BA3 Y24-5956- B l -VH18-K67 9-Q00KHIFR8 E89-J46CDX Guille JOHHB9VF6 CD2 AD3CD2 2021-12-31 Outpatient 190695U3- 780520E3-Q6 3447 38E1-B Memoria 12:10:15 W3Y7-126L E1-485D-91D 5Y5-588D- 9 l -89H5-X88 2-V33753619 1O9-T05998 Guille 393901IO4 AC5 327AC5 2021-10-07 Inpatient Roa, HCABM HCABM [id number] HCA 06:58:[id number] [facility] 2021-07-14 Outpatient LSCH [facility] [id number] [place]one 04:59:20 [id number] [facility] 2021-06-28 Outpatient [facility] LS [id number] [place] 15:37:52 [facility] 2021-06-15 Outpatient [facility] [id number] [place] 11:20:44 [id number] [facility] 2021-03-30 Outpatient [id number]- 8770DW80-1M 9110 FB25-7 Memoria 23:09:22 9X22-562P 85-469A-9A5 P62-680K- 9 l -7T2R-L97 B-R7543U542 T1L-Y8169O Guille 38J660T91 B38 918B38 2020-06-30 Inpatient HCAKW HCAKW [id number] [facility] 09:04:59 17 [facility] 2020-02-27 Inpatient HCACR AMA [id number] [facility] 13:37:00 01 Vielka [facility] 2019-10-08 [facility] [id number] [facility] 12:23:[address] [facility] 2023-02-18 2023-02-18 Outpatient Karol ZEPEDA [facility] [id number] Univers 13:00:00 13:00:00 SENDIL [facility] 2023-02-14 2023-02-14 Outpatient R EVERARDOGERMAN Dolan [facility] [id number] Univers 12:00:00 12:00:00 GERMAN MCGEE [facility] 2023-01-30 2023-01-30 Outpatient Karol ZEPEDA [facility] [id number] Univers 14:30:00 14:30:00 SENDIL [facility] 2023-01-07 2023-01-07 [email or web address] 1.2.410.971 [id number] Univers 00:00:00 00:00:00 Alexandra CHAMBERS 350.1.13.10 i ty [facility] [place] [phone] Ca dical [address] 2022-12-30 2022-12-30 Outpatient R THOMAS [facility] [id number] Univers 15:00:00 15:00:00 BLANCA [facility] 2022-12-24 2022-12-24 Orders Doctor LIBERTY 1.2.840.114 [id number] Univers 00:00:00 00:00:00 Only Unassigned, BRANDEE 350.1.13.10 ity of [place] [facility] 4.2.7.2.686 Suhas as [phone] [address] 2022-12-17 2022-12-17 Outpatient R JULIANN [facility] [id number] Univers 08:30:00 08:30:00 JENI [facility] 2022-12-16 2022-12-16 Knock Up Assembler 2, Adc Lab [facility] 1.2.840.114 [id number] Univers 13:45:00 14:27:13 Visit Alexandra Finnegan 350.1.13.10 [facility] [place] [phone] Ca dical NAL 353 [facility] 2022-12-16 2022-12-16 Outpatient R KAIN [facility] [id number] Univers 13:00:00 13:41:28 ALEXANDRA ity [facility] 2022-12-16 2022-12-16 Office [email or web address] 1.2.840.114 [id number] Univers 13:00:00 13:41:28 Visit Alexandra CHAMBERS 350.1.13.10 i ty [facility] [place].2.7.2.[place] [facility] [phone] Ca dical NAL 044 [facility] 2022-12-13 2022-12-13 Outpatient R KAIN [facility] [id number] Univers 11:30:00 11:30:00 [facility] 2022-12-11 2022-12-11 Telephone [email or web address] 1..840.114 10 [id number] Univers 00:00:00 00:00:00 [facility] 350.1.13.10 ity [facility] [place]2.7.2.[place] [phone] [facility] AND [address] [facility] 2022-12-10 2022-12-10 Outpatient R RENEE [facility] [id number] Univers 16:00:00 16:00:00 LEIGHTON JEFFERSON it y of [facility] 2022-12-05 2022-12-05 Refill [email or web address] 1.2.840.114 [id number] Univers 00:00:00 00:00:[address] 350.1.13.10 it y of [place] 4.2.7.2.686 Suhas as ИРИНА?BLEA [phone] Ca dical SANJUANA [address] [place] [address] OFFICE BUILDING 2022-12-03 2022-12-03 Outpatient R JULIANN [facility] [id number] Univers 08:00:00 08:00:00 JENI ity [facility] 2022-11-14 2022-11-14 Telephone Abena [facility] 1.2.840.114 [id number] Univers 00:00:00 00:00:00 Ramón CHAMBERS 350.1.13.10 ity [facility] 4.2.7.2.[place] [phone] Ca dical NAL [address] [place] [address] 2022-11-08 2022-11-08 Orders Doctor LIBERTY 1.2.840.114 [id number] Univers 00:00:00 00:00:00 Only Unassigned, RBANDEE 350.1.13.10 [facility] 4.2.7.2.686 Suhas as [phone] [address] 2022-11-06 2022-11-06 Office Abena [facility] 1.2.840.114 [id number] Univers 14:30:00 14:40:59 Visit Matthewbasilioangelo TRISH 350.1.13.10 ity [facility] 4.2.7.2.[place] [phone] Ca dical NAL [address] [place] [address] 2022-11-06 2022-11-06 Office Abena [facility] 1.2.840.114 [id number] Univers 13:30:00 14:39:47 Visit Ramón CHAMBERS 350.1.13.10 ity [facility] 4.2.7.2.[place] [phone] Ca dical NAL [address] [place] [address] 2022-11-06 2022-11-06 Outpatient R RAMÓN KRAFT [facility] [id number] Univers 13:30:00 14:39:47 [facility]-21 2022-10-21 Outpatient R MORENITA [facility] [id number] Univers 13:30:00 13:30:00 PATRICK ity [facility] 2022-10-16 2022-10-16 Boo Finnegan [facility] 1.2.840.114 [id number] Univers 00:00:00 00:00:00 Alexandra TRISH 350.1.13.10 i ty [facility] 4.2.7.2.[place] [phone] [facility] 044 [facility] 2022-10-11 2022-10-11 Outpatient R LEIA [facility] [id number] Univers 08:00:00 08:00:00 RUIQING ity [facility] 2022-10-02 2022-10-02 Telephone [email or web address] 1.2.882.779 [id number] Univers 00:00:00 00:00:00 Alexandra [place] 350.1.13.10 i ty of [facility] 4.2.7.[place] [phone] [facility] 231 [facility] 2022-09-25 2022-09-25 Orders Doctor LIBERTY 1.2.840.114 [id number] Univers 00:00:00 00:00:00 Only Unassigned, BRANDEE 350.1.13.10 ity of [place] [facility] 4.2.7.2.686 Suhas as [phone] [address] 2022-09-20 2022-09-20 Out[facility] [id number] Univers 13:00:00 13:00:00 [facility] 2022-09-18 2022-09-[address] [facility] 1.2.386.822 [id number] Univers 00:00:00 00:00:00 Alexandra ADDISTON 350.1.13.10 i ty of [place].7.2.[place] [phone] [facility] 044 [facility] 2022-09-18 2022-09-[address] [facility] 1.2.030.388 [id number] Univers 00:00:00 00:00:00 Alexandra [place] 350.1.13.10 i ty of [facility] 4.2.7.2.[place] [phone] [facility] 044 [facility] 2022-09-17 2022-09-17 Telephone [email or web address] 1.2.840.114 103 [id number] Univers 00:00:00 00:00:00 Jeni [place] 350.1.13.10 i ty of [facility] 4.2.7.2.[place] [phone] Ca dical NAL 204 [facility] 2022-09-13 2022-09-13 Outpatient R [facility] [id number] Univers 11:00:00 11:00:00 ity of [facility] 2022-09-13 2022-09-13 Telephone [email or web address] 1.2.840.114 103 [id number] Univers 00:00:00 00:00:00 Ramón CHAMBERS 350.1.13.10 ity of [facility] 4.2.7.2.[place] [id number] Ca dical NAL 044 [facility] 2022-09-13 2022-09-13 Telephone [email or web address] 1.2.840.114 103 [id number] Univers 00:00:00 00:00:00 Jeni CHAMBERS 350.1.13.10 i ty of [facility] 4.2.7.2.[place] [phone] Ca dical NAL 204 [facility] 2022-09-12 2022-09-12 Emergency [facility] 1.2.840.114 10 [id number] Univers 21:33:00 22:56:00 Hui CHAMBERS 350.1.13.10 ity of [facility] 4.2.7.2.[place] [id number] [facility] [address] 2022-09-12 2022-09-12 Outpatient R [email or web address] ERT [id number] Univers 15:07:02 21:32:00 ALEXANDRA ity of [facility] 2022-09-12 2022-09-12 Hospital [email or web address] 1.2.840.114 [id number] Univers 15:07:02 21:32:00 Encounter Alexandra CHAMBERS 350.1.13.10 ity of [facility] 4.2.7.2.[place] [id number] [facility] [address] 2022-09-12 2022-09-12 Knock Up Assembler 2, Adc Lab [facility] 1.2.840.114 [id number] Univers 15:30:00 15:45:00 Visit Alexandra Finnegan 350.1.13.10 ity of [facility] 4.2.7.2.[place] [phone] Ca dical NAL 353 [facility] 2022-09-12 2022-09-12 Outpatient R KAIN [facility] [id number] Univers 13:30:00 14:26:44 ALEXANDRA ity [facility] 2022-09-12 2022-09-12 Office [email or web address] 1.2.840.114 [id number] Univers 13:30:00 14:26:44 Visit Alexandra CHAMBERS 350.1.13.10 i ty of [facility] 4.2.7.2.[place] [phone] Ca [facility]Saint [facility] 044 [facility] 2022-09-12 2022-09-12 Telephone [email or web address] 1.2.994.410 [id number] Univers 00:00:00 00:00:00 Alexandra CHAMBERS 350.1.13.10 i ty [facility] 4.2.7.2.[place] [phone] [address] 2022-09-12 2022-09-12 Telephone [email or web address]] 1.2.386.692 [id number] Univers 00:00:00 00:00:00 Alexandra CHAMBERS 350.1.13.10 i ty [facility] 4.2.7.2.[place] [phone] [address] 2022-09-11 2022-09-11 Telephone Abena [facility] 1.2.840.114 103 [id number] Univers 00:00:00 00:00:00 Ramón CHAMBERS 350.1.13.10 ity of [facility] 4.2.7.2.[place] [phone] [address] 2022-09-10 2022-09-10 Outpatient R JULIANN [facility] [id number] Univers 10:30:00 11:36:35 JENI ity [facility] 2022-09-06 2022-09-06 Telephone Abena [facility] 1.2.840.114 103 [id number] Univers 00:00:00 00:00:00 Ogranwu [place] 350.1.13.10 ity of [facility] 4.2.7.2.[place] [phone] Ca dical NAL 044 [facility] 2022-09-06 2022-09-06 Telephone [facility] 1.2.840.114 103 [id number] Univers 00:00:00 00:00:00 Ogranwu [place] 350.1.13.10 ity of [facility] 4.2.7.2.[place] [id number] Ca dical NAL 044 [facility] 2022-09-05 2022-09-05 [facility] 1.2.840.114 [id number] Univers 00:00:00 00:00:00 Ogbasiliou [place] 350.1.13.10 ity of [facility] 4.2.7.2.[place] [phone] Ca dical NAL 044 [facility] 2022-09-04 2022-09-04 Patient [facility] 1.2.840.114 [id number] Univers 00:00:00 00:00:00 Outreach Mari CHAMBERS 350.1.13.10 ity of [facility] 4.2.7.2.[place] [phone] Ca dical NAL 231 [facility] 2022-09-04 2022-09-04 Orders Doctor LIBERTY 1.2.840.114 [id number] Univers 00:00:00 00:00:00 Only Unassigned, BRANDEE 350.1.13.10 ity of [place] [facility] 4.2.7.2.686 Suhas as [phone] [address] 2022-09-02 2022-09-02 Telephone [facility] 1.2.840.114 103 [id number] Univers 00:00:00 00:00:00 Ogbasiliou [place] 350.1.13.10 ity of [facility] 4.2.7.2.[place] [id number] Ca dical NAL 044 [facility] 2022-08-30 2022-08-30 Telephone [facility] 1.2.840.114 103 [id number] Univers 00:00:00 00:00:00 Ogechukwu [place] 350.1.13.10 ity of [place].2.7.2.[place] [phone] [facility] 044 [facility] 2022-08-28 2022-08-28 Telephone [facility] 1.2.840.114 103 [id number] Univers 00:00:00 00:00:00 Ogechukwu [place] 350.1.13.10 ity of [facility] 4.2.7.2.[place] [phone] Ca dicri NAL 231 [facility] 2022-08-27 2022-08-27 Telephone [facility] 1.2.840.114 103 [id number] Univers 00:00:00 00:00:00 Ogranwu [place] 350.1.13.10 ity of [facility] 4.2.7.2.[place] [phone] Ca [facility] 044 [facility] 2022-08-27 2022-08-27 Telephone [facility] 1.2.840.114 103 [id number] Univers 00:00:00 00:00:00 Ogranwu [place] 350.1.13.10 ity of [place] 4.2.7.2.[place] [phone] [facility] 044 [facility] 2022-08-26 2022-08-26 Orders Doctor LIBERTY 1.2.840.114 [id number] Univers 00:00:00 00:00:00 Only Unassigned, BRANDEE 350.1.13.10 ity of [place] [facility] 4.2.7.2.686 Suhas as [phone] [address] 2022-08-26 2022-08-26 Telephone [facility] 1.2.840.114 103 [id number] Univers 00:00:00 00:00:00 Ogechukwu [place] 350.1.13.10 ity of [place] 4.2.7.2.[place] [phone] Ca dical [address] 2022-08-21 2022-08-21 Abstract [facility] 1.2.171.468 [id number] Univers 00:00:00 00:00:00 Ramón CHAMBERS 350.1.13.10 ity of [place] 4.2.7.2.686 [place] [facility] [phone] Ca dic[address] 2022-08-19 2022-08-19 [facility] 1.2.840.114 102 [id number] Univers 00:00:00 00:00:00 Ogsocorrojaeu [facility] 350.1.13.10 ity of [place] 4.2.7.2.686 [place] [facility] [phone] [address] 2022-08-15 2022-08-15 Outpatient R RENEE [facility] [id number] Univers 15:40:00 15:40:00 LEIGHTON JEFFERSON it y of [facility] 2022-08-14 2022-08-[address] ERT [id number] Univers 00:06:00 03:01:00 LES espana [facility] 2022-08-14 2022-08-14 Emergency [facility] 1.2.840.114 1 [id number] Univers 00:06:00 03:01:00 Les CHAMBERS 350.1.13.10 i ty of [place].2.7.2.[place] [id number] [facility] [address] 2022-08-08 2022-08-08 Outpatient R CIARA [facility] [id number] Univers 16:45:00 15:22:09 BLAS ity [facility] 2022-08-07 2022-08-07 Orders Doctor KOENIG 1.2.840.114 [id number] Univers 00:00:00 00:00:00 Only Unassigned, BRANDEE 350.1.13.10 ity of [place] [facility] 4.2.7.2.686 Suhas as [phone] [facility] [address] 2022-08-07 2022-08-07 Telephone Abena [facility] 1.2.840.114 102 [id number] Univers 00:00:00 00:00:00 Ramón CHAMBERS 350.1.13.10 ity of [facility] 4.2.7.2.[place] [id number] [address] 2022-08-05 2022-08-05 Outpatient R RAMÓN KRAFT [facility] [id number] Univers 13:00:00 14:16:22 ABENARAMÓN ity of [facility] 2022-08-05 2022-08-05 Office Abena, [facility] 1.2.840.114 [id number] Univers 13:00:00 14:16:22 Visit Ramón CHAMBERS 350.1.13.10 ity of [place].7.2.[place] [phone] [address] 2022-08-05 2022-08-05 Patient Bao [facility] 1.2.840.114 [id number] Univers 00:00:00 00:00:00 Outreach Mari Nadir CHAMBERS 350.1.13.10 ity of [place] 4.[place].7.2.[place] [phone] [address] 2022-08-02 2022-08-02 Orders Doctor LIBERTY 1.2.840.114 [id number] Univers 00:00:00 00:00:00 Only UnassignedBRANDEE 350.1.13.10 ity of [place] [facility] 4.2.7.2.686 Suhas as [phone] [facility] [address] 2022-08-02 2022-08-02 Telephone LIBERTY Mcneal 1.2.840.114 10 [id number] Univers 00:00:00 00:00:00 Clare IRVIN 350.1.13.10 it y of [facility] 4.2.7.2.686 Suhas as [phone] [facility] [address] 2022-08-01 2022-08-01 Transition TANI Snow 1.2.840.114 102 [id number] Univers 00:00:00 00:00:00 of Care Alex MORALES 350.1.13.10 ity of [place] [phone] [facility] [address] 2022-08-01 2022-08-01 Telephone LIBERTY Mcneal 1.2.840.114 10 [id number] Univers 00:00:00 00:00:00 Clare BRANDEE 350.1.13.10 it y of [facility] 4.2.7.2.686 Suhas as [id number] [facility] [address] 2022-07-28 2022-07-31 Inpatient U [facility] [id number] Univers 01:36:00 19:14:00 MALIK ity [facility] 2022-07-28 2022-07-31 [facility] Lolita Brennan PERALTA 1.2.840.114 [id number] Univers 01:36:00 19:14:00 Encounter Malik Mayo BRANDEE 350.1.13.10 ity of [facility] 4.2.7.2.686 Suhas as [phone] [facility] [address] 2022-07-18 2022-07-19 Emergency [facility] 1.2.794.722 [id number] Univers 21:30:00 01:47:00 Adolfo CHAMBERS 350.1.13.10 ity of [place] [id number] [facility] [address] 2022-07-18 2022-07-19 Emergency X [facility] ERT [id number] Univers 21:30:00 01:47:00 ADOLFO espana [facility] 2022-06-25 2022-07-03 [facility] Francesca Stevens 1.2.840.1 [id number] Methodi 10:52:00 03:00:00 Encounter Wilberto Joe Txa 59543.1.[address] Naif Cartagena 3.430.2.7 H ospita .3.443245 l .8 2022-06-25 2022-07-03 [facility] Francesca Stevens 1.2.840.1 [id number] Methodi 10:52:00 03:00:00 Wilberto Turk Nha 29527.1.[address] MitziEdmundmin 3.430.2.7 H ospita .3.562501 l .8 2022-07-03 2022-07-03 Documentat Abrams, 1.2.840.1 [id number] 2 [id number] Methodi 00:00:00 00:00:00 ion Cheryle 03059.1.[address] 3.430.2.7 Hospit a .3.427787 l .8 2022-07-03 2022-07-03 Documentat Abrams, 1.2.840.1 [id number] 2 [id number] Methodi 00:00:00 00:00:00 ion Cheryle 14423.1.[address] 3.430.2.7 Hospit a .3.631504 l .8 2022-06-26 2022-06-26 Surgery Nurko, 1.2.840.1 [id number] 695758 9707 Methodi 16:50:00 18:20:[address] 3.430.2.7 Hospit a .3.451546 l .8 2022-06-26 2022-06-26 Surgery Nurko, 1.2.840.1 [id number] 524531 9565 Methodi 16:50:00 18:20:[address] 3.430.2.7 Hospit a .3.144456 l .8 2022-06-26 2022-06-26 Anesthesia [facility] 1.2.840.1 104 [id number] Methodi 16:46:00 17:36:00 Event Thong Torres 08329.1.[address] 3.430.2.7 Hospit a .3.225172 l .8 2022-06-26 2022-06-26 Anesthesia [facility] 1.2.840.1 104 031124 [id number] Methodi 16:46:00 17:36:00 Event Thong Torres 04492.1.[address] 3.430.2.7 Hospit a .3.317674 l .8 2022-06-25 2022-06-25 Office Aaron, 1.2.840.1 [id number] 4821 Methodi 09:00:00 10:28:55 Visit Davin 88305.1.[address] 3.430.2.7 Hospit a .3.728317 l .8 2022-06-25 2022-06-25 Office Aaron, 1.2.840.1 [id number] 5956 Methodi 09:00:00 10:28:55 Visit Davin 37368.1.[address] 3.430.2.7 Hospit a .3.510198 l .8 2022-06-25 2022-06-25 Travel 1.2.840.1 1.2.324.034 1471 907950 Methodi 00:00:00 00:00:[address] 3.430.2.7 0.2.7.3.698 Ho spita .3.149383 084.8 l .8 2022-06-25 2022-06-25 Travel 1.2.840.1 1.2.318.704 3770 673392 Methodi 00:00:00 00:00:[address] 3.430.2.7 0.2.7.3.698 Ho spita .3.616220 084.8 l .8 2022-06-21 2022-06-21 Office Cassidymaryjane Jin 1.2.840.1 [id number] Methodi 13:00:00 14:47:04 Visit Louisa Escobar 59030.1.[address] 3.430.2.7 Hospit a .3.905861 l .8 2022-06-21 2022-06-21 Office Cassidymaryjane Davin 1.2.840.1 [id number] Methodi 13:00:00 14:47:04 Visit Shawn Louisa E 14616.1.[address] 3.430.2.7 Hospit a .3.243201 l .8 2022-06-21 2022-06-21 Travel 1.2.840.1 1.2.700.234 9751 698797 Methodi 00:00:00 00:00:[address] 3.430.2.7 0.2.7.3.698 Ho spita .3.504697 084.8 l .8 2022-06-21 2022-06-21 Travel 1.2.840.1 1.2.252.358 7599 066751 Methodi 00:00:00 00:00:[address] 3.430.2.7 0.2.7.3.698 Ho spita .3.444446 084.8 l .8 2022-06-14 2022-06-14 Office [facility], 1.2.840.1 [id number] 873188 0758 Methodi 13:10:00 13:23:28 Visit Jin 82910.1.[address] 3.430.2.7 Hospit a .3.385456 l .8 2022-06-14 2022-06-14 Office [facility], 1.2.840.1 [id number] Methodi 13:10:00 13:23:28 Visit Jin 92991.1.[address] 3.430.2.7 Hospit a .3.782100 l .8 2022-06-14 2022-06-14 Travel 1.2.840.1 1.2.559.164 7673 206199 Methodi 00:00:00 00:00:[address] 3.430.2.7 0.2.7.3.698 Ho spita .3.533019 084.8 l .8 2022-06-14 2022-06-14 Travel 1.2.840.1 1.2.062.470 8239 512391 Methodi 00:00:00 00:00:[address] 3.430.2.7 0.2.7.3.698 Ho spita .3.965141 084.8 l .8 2022-05-24 2022-05-24 Office Nur, 1.2.840.1 [id number] 341301 5421 Methodi 14:00:00 14:54:06 Visit Davin 58603.1.[address] 3.430.2.7 Hospit a .3.837695 l .8 2022-05-24 2022-05-24 Office Nur, 1.2.840.1 [id number] 636667 0767 Methodi 14:00:00 14:54:06 Visit Davin 10116.1.[address] 3.430.2.7 Hospit a .3.666778 l .8 2022-05-24 2022-05-24 Travel 1.2.840.1 1.2.171.973 7456 379149 Methodi 00:00:00 00:00:[address] 3.430.2.7 0.2.7.3.698 Ho spita .3.211749 084.8 l .8 2022-05-24 2022-05-24 Travel 1.2.840.1 1.2.610.434 6202 827384 Methodi 00:00:00 00:00:[address] 3.430.2.7 0.2.7.3.698 Ho spita .3.793353 084.8 l .8 2022-05-08 2022-05-14 [facility] [id number] Methodi 11:57:00 14:24:00 Encounter Noman Brewer 61115.1.[address] Ron Pizano Ding 3.430.2.7 Hospita .3.493310 l .8 2022-05-08 2022-05-14 [facility]1 [id number] Methodi 11:57:00 14:24:00 Encounter Noman Brewer 57799.1.[address] Ron Pizano Ding 3.430.2.7 Hospita .3.017812 l .8 2022-05-14 2022-05-14 Documentat [facility], 1.2.840.1 [id number] Methodi 00:00:00 00:00:00 ion Alyse 24439.1.[address] 3.430.2.7 Hospit a .3.633258 l .8 2022-05-14 2022-05-14 Documentat [facility], 1.2.840.1 [id number] Methodi 00:00:00 00:00:[address]lyse 11149.1.[address] 3.430.2.7 Hospit a .3.387491 l .8 2022-05-10 2022-05-10 Surgery Nurko, 1.2.840.1 [id number] 906140 2812 Methodi 11:00:00 13:05:[address] 3.430.2.7 Hospit a .3.266037 l .8 2022-05-10 2022-05-10 Surgery Nurko, 1.2.840.1 [id number] 824662 8559 Methodi 11:00:00 13:05:[address] 3.430.2.7 Hospit a .3.738531 l .8 2022-05-10 2022-05-10 Anesthesia Beulah Barcenas 1.2.840.1 103002 023 [id number] Methodi 11:12:00 12:34:00 Event Mari Gamboa 97479.1.[address] 3.430.2.7 Hospit a .3.971153 l .8 2022-05-10 2022-05-10 Anesthesia Beulah Barcenas 1.2.840.1 765923 023 [id number] Methodi 11:12:00 12:34:00 Event Mari Gamboa 72248.1.[address] 3.430.2.7 Hospit a .3.282285 l .8 2022-04-24 2022-04-24 Patient Carly, 1.2.840.1 [id number] 41780 Methodi 00:00:00 00:00:00 Outreach Cheri 65198.1.1 432 s t 3.430.2.7 Hospit a .3.708879 l .8 2022-04-24 2022-04-24 Patient Carly, 1.2.840.1 [id number] 87263 Methodi 00:00:00 00:00:00 Outreach Cheri 00764.1.1 432 s t 3.430.2.7 Hospit a .3.535090 l .8 2022-04-12 2022-04-19 [facility] .[facility] [id number] Methodi 15:27:00 19:06:00 Encounter Hector Orozcot 13218.1.1 263 [facility] Efren 3.430.2.7 Hospita Uriel Pastor .3.378481 l Nadimpalli, July .8 2022-04-12 2022-04-19 [facility] 1.2.840 .1 [id number] Methodi 15:27:00 19:06:00 Encounter Hector Orozco 09849.1.1 263 Fahad Mc 3.430.2.7 Hospita Shaikh Abid .3.143421 l Nadimpalli, July .8 2022-04-19 2022-04-19 Anesthesia Tu, 1.2.840.1 [id number] 425 [id number] Methodi 14:04:00 14:26:00 Event IrvingVale 81306.1.[address] Thi 3.430.2.7 Hospit a .3.726034 l .8 2022-04-19 2022-04-19 Anesthesia Tu, 1.2.840.1 [id number] 912 7504055 Methodi 14:04:00 14:26:00 Event GaGueroVale 61995.1.[address] Thi 3.430.2.7 Hospit a .3.105444 l .8 2022-03-08 2022-03-14 [facility] Laxmi Arredondo 1.2.840.1 10 8173684 [id number] Methodi 22:25:00 20:26:00 [place] 50509.1.1 934 [facility].430[facility]7 [facility] .3.401436 l Noman Brewer .8 2022-03-08 2022-03-14 [facility] Laxmi Arredondo 1.2.840.1 10 [id number] Methodi 22:25:00 20:26:00 Encounter [place]i 56958.1.1 934 [facility].430.2.7 [facility] .3.903163 l Noman Brewer .8 2022-03-12 2022-03-12 Surgery [facility], 1.2.840.1 [id number] 023545 2454 Methodi 14:03:00 15:48:[address] 3.430.2.7 Hospit a .3.414100 l .8 2022-03-12 2022-03-12 Surgery Nur, 1.2.840.1 [id number] 513037 2612 Methodi 14:03:00 15:48:[address] 3.430.2.7 Hospit a .3.463644 l .8 2022-03-12 2022-03-12 Anesthesia Urrutia, 1.2.840.1 [id number] 509 1976960 Methodi 14:23:00 15:33:00 Event Mary Estevez 19220.1.[address] 3.430.2.7 Hospit a .3.200266 l .8 2022-03-12 2022-03-12 Anesthesia Urrutia, 1.2.840.1 [id number] 685 [id number] Methodi 14:23:00 15:33:00 Event Mary Estevez 06925.1.[address] 3.430.2.7 Hospit a .3.381376 l .8 2022-03-08 2022-03-08 Travel 1.2.840.1 1.2.994.711 3201 908731 Methodi 00:00:00 00:00:[address] 3.430.2.7 0.2.7.3.698 Ho spita .3.747516 084.8 l .8 2022-03-08 2022-03-08 Travel 1.2.840.1 1.2.795.384 7738 961821 Methodi 00:00:00 00:00:[address] 3.430.2.7 0.2.7.3.698 Ho spita .3.080899 084.8 l .8 2022-01-01 2022-01-05 Inpatient EM Lance [facility] [id number] [facility] 16:59:00 12:20:[address] [place] [address] 2021-12-10 2021-12-14 Hospital Wilberto Carbajal 1.2.840.1 104 928976 [id number] Methodi 21:52:00 15:50:00 Melissa Ale Farias 11125.1.[address] René De Jesus 3.430.2.7 Hospita .3.863563 l .8 2021-12-10 2021-12-10 Travel 1.2.840.1 1.2.681.488 2523 773992 Methodi 00:00:00 00:00:[address] 3.430.2.7 0.2.7.3.698 Ho spita .3.445796 084.8 l .8 2021-11-08 2021-11-08 Emergency Mitzi, 1.2.840.1 [id number] 2100 780447 Methodi 10:26:00 14:01:[address] 3.430.2.7 Hospit a .3.795402 l .8 2021-10-10 2021-10-10 Emergency IpFahad 1.2.840.1 [id number] Methodi 20:57:00 23:49:[address] 3.430.2.7 Hospit a .3.082330 l .8 2021-10-07 2021-10-07 Emergency EM Janina, [facility] [id number] [facility] 06:46:00 07:39:00 Jerry 58 [facility] 2021-09-30 2021-09-30 Emergency EM Nataly [facility] [id number] [facility] 18:18:00 19:46:00 Margo 39 [facility] 2021-08-15 2021-08-15 Outpatient GC_HGMDA_Go PRIV PRIV 110 35771-3 [facility] 09:28:00 09:28:00 nzalez_J [id number] Medic al 2021-08-13 2021-08-13 Outpatient GC_HGMDA_Go PRIV PRIV 110 82738-4 [facility] 12:25:00 12:25:00 nzalez_J [id number] Medic al 2021-08-06 2021-08-06 Emergency EM Cresencio [facility] F6972 [id number] [facility] 15:06:00 18:56:00 Brennan 32 [facility] 2021-07-18 2021-07-[address] [facility] [id number] [facility] 00:00:00 00:00:00 [facility] 2021-06-29 2021-06-29 Office 0 Vielka [id number] 13:30:00 16:29:55 Visit 06 2021-06-29 2021-06-29 Outpatient Berta Schwab [facility] 2343 820-20 Berta 13:13:00 13:13:00 Vielka [facility] 823162 [facility] 2021-03-22 2021-03-22 Travel 1.2.840.1 1.2.244.964 2189 118859 Methodi 00:00:00 00:00:[address] 3.430.2.7 0.2.7.3.698 Ho spita .3.958312 084.8 l .8 2021-02-02 2021-02-02 [facility] [id number] 8430 [address]42 [place] 14:47:00 17:56:00 yShazia 2021-02-02 2021-02-02 Emergency [facility] [id number] 13 [place] 15:08:10 15:31:04 [facility] 2021-01-02 2021-01-03 Emergency Juan, 1.2.840.1 [id number] 2 [id number] Methodi 18:54:00 01:22:[address] 3.430.2.7 Hospit a .3.778323 l .8 2020-12-24 2020-12-24 Emergency EM Roa, [facility] [id number] [facility] 12:04:00 17:13:00 Jerry 01 [facility] Results Test Description Test Time Test Comments Results Result Comments Source CBC WITH DIFF 2022-12-16 21:59:01 Test Item Value Reference Range Interpretation Comme nts WBC (test code = 6690-2) 5.46 See_Comment [A utomated message] The system which [email or web address] nerated this result transmit yana reference range: 4.20 - 1 0.70 10*3/?L. The reference r maggi was not used to interpr et this result as normal/abnor mal. RBC (test code = 789-8) 3.38 See_Comment L [Au tomated message] The system which [email or web address] nerated this result transmit yana reference range: [...] g/dL 31.2-35.0 L RDW-SD (test code = 14753-2) 54.8 fL 38.5-51.6 H RDW-CV (test code = 788-0) 16.2 % 12.1-15.4 H PLT (test code = 777-3) 400 See_Comment H [Au tomated message] The system which ge nerated this result transmit yana reference range: 150 - 32 8 10*3/?L. The reference range was not used to interpret th is result as normal/abnormal . MPV (test code = 83872-5) 9.9 fL 9.8-13.0 NRBC/100 WBC (test code = 0.0 See_Comment [ Automated message] The 3579634455) system which ge nerated this result transmit yana reference range: 0.0 - 10 .0 /100 WBCs. The reference r maggi was not used to interpr et this result as normal/abnor mal. NRBC x10^3 (test code = See_Comment [Au tomated message] The 2849986553) system which ge nerated this result transmit yana reference range: 10*3/?L. The reference range was not u sed to interpret this result as normal/abnormal . GRAN MAT (NEUT) % (test code 54.6 % = 770-8) IMM GRAN % (test code = 3.70 % 7726921380) LYMPH % (test code = 736-9) 31.5 % MONO % (test code = 5905-5) 7.3 % EOS % (test code = 713-8) 2.2 % BASO % (test code = 706-2) 0.7 % GRAN MAT x10^3(ANC) (test 2.98 10*3/uL 1.99-6.95 code = 4236705956) IMM GRAN x10^3 (test code = 0.20 10*3/uL 0.00-0.06 H 7138716465) LYMPH x10^3 (test code = 1.72 10*3/uL 1.09-3.23 731-0) MONO x10^3 (test code = 0.40 10*3/uL 0.36-1.02 742-7) EOS x10^3 (test code = 0.12 10*3/uL 0.06-0.53 711-2) BASO x10^3 (test code = 0.04 10*3/uL 0.01-0.09 704-7) Lab Interpretation (test Abnormal code = 16117-4) [facility] WITH [id number] 21:59:01 Test Item Value Reference Range Interpretation [...] (test code = 54.8 fL 38.5-51.6 H 25956-6) RDW-CV (test code = 16.2 % 12.1-15.4 H 788-0) PLT (test code = 400 See_Comment H [Automated 777-3) message] The sy stem which generated this result transmitted reference range : 150 - 328 10*3/ ?L. The reference r maggi was not used to interpret this result as normal/abnormal . MPV (test code = 9.9 fL 9.8-13.0 49700-3) NRBC/100 WBC (test 0.0 See_Comment [Automat ed code = 5690862010) message] The system which generated this result transmitted reference range : 0.0 - 10.0 /100 WBCs. The refer ence range was not u sed to interpret th is result as normal/abnormal . NRBC x10^3 (test code See_Comment [Auto mated = 6134713662) message] The s ystem which generated this result transmitted reference range : 10*3/?L. The reference range was not used to interpret this result as normal/abnormal . GRAN MAT (NEUT) % 54.6 % (test code = 770-8) IMM GRAN % (test code 3.70 % = 2512668838) LYMPH % (test code = 31.5 % 736-9) MONO % (test code = 7.3 % 5905-5) EOS % (test code = 2.2 % 713-8) BASO % (test code = 0.7 % 706-2) GRAN MAT x10^3(ANC) 2.98 10*3/uL 1.99-6.95 (test code = 2683835261) IMM GRAN x10^3 (test 0.20 10*3/uL 0.00-0.06 H code = 2242016358) LYMPH x10^3 (test code 1.72 10*3/uL 1.09-3.23 = 731-0) MONO x10^3 (test code 0.40 10*3/uL 0.36-1.02 = 742-7) EOS x10^3 (test code = 0.12 10*3/uL 0.06-0.53 711-2) BASO x10^3 (test code 0.04 10*3/uL 0.01-0.09 = 704-7) Lab Interpretation Abnormal (test code = 09861-5) [facility] [id number] 21:53:02 Test Item Value Reference Range Interpretation Comments TSH (test code = 0.20 See_Comment L [Automated message] 2655449034) The system whic h generated this result transmitted ref erence range: 0.45 - 4 .70 mIU/L. The refe rence range was not u sed to interpret this result as normal/abnor mal. Lab Interpretation (test Abnormal code = 79106-5) [facility] [id number] 21:53:02 Test Item Value Reference Range Interpretation Comments TSH (test code = 0.20 See_Comment L [Automated message] 2244927592) The system [employer] generated this result transmitted ref erence range: 0.45 - 4 .70 mIU/L. The refe rence range was not u sed to interpret this result as normal/abnor mal. Lab Interpretation (test Abnormal code = 97765-2) [facility] [id number] 21:38:58 Test Item Value Reference Range Interpretation Comments FREE T4 (test code = 2.05 See_Comment [Autom ated message] 4607319203) The system [employer] generated this result transmitted ref erence range: 0.78 - 2 .20 ng/dL:. The ref erence range was not u sed to interpret this result as normal/abnor mal. Lab Interpretation (test Normal code = 37670-8) [facility] [id number] 21:38:58 Test Item Value Reference Range Interpretation Comments FREE T4 (test code = 2.05 See_Comment [Autom ated message] 9099019631) The system [employer] generated this result transmitted ref erence range: 0.78 - 2 .20 ng/dL:. The ref erence range was not u sed to interpret this result as normal/abnor mal. Lab Interpretation (test Normal code = 09913-5) [facility] ([id number])(TOTAL CHOLESTEROL, TRIGLYCERIDES, HDL)2022-12-16 21:23:18 Test Item Value Reference Range Interpretation Comments CHOL (test code = 8350982339) 119 mg/dL 120-200 L HDL (test code = 0798182091) 28 mg/dL >=40 L HDLC RATIO (test code = 7040975563) 4.3 <=5.0 TRIG (test code = 9066906764) 118 mg/dL 30-170 LDL CHOL (test code = 15291-3) 67 mg/dL <=160 VLDL (test code = 0859541689) 24 mg/dL 5-60 Lab Interpretation (test code = Abnormal 90949-6) [facility] (28981)(TOTAL CHOLESTEROL, TRIGLYCERIDES, HDL)2022-12-16 21:23:18 Test Item Value Reference Range Interpretation Comments CHOL (test code = 7983652392) 119 mg/dL 120-200 L HDL (test code = 3555433561) 28 mg/dL >=40 L HDLC RATIO (test code = 2180898990) 4.3 <=5.0 TRIG (test code = 0527642711) 118 mg/dL 30-170 LDL CHOL (test code = 30614-3) 67 mg/dL <=160 VLDL (test code = 5960034625) 24 mg/dL 5-60 Lab Interpretation (test code = Abnormal 71979-0) [facility] ([id number][facility]2022-12-16 21:22:58 Test Item Value Reference Range Interpretation Comments NA (test code = 140 mmol/L 135-145 7654278363) K (test code = 5.2 mmol/L 3.5-5.0 H 1573107445) CL (test code = 103 mmol/L 98-108 8202856899) CO2 TOTAL (test code = 27 mmol/L 23-31 9441060919) AGAP (test code = 10 2-16 2987893931) BUN (test code = 51 mg/dL 7-23 H 5624830468) GLUCOSE (test code = 145 mg/dL 70-110 H 1604081538) CREATININE (test code = 2.84 mg/dL 0.60-1.25 H 0186792595) TOTAL BILI (test code = 0.1 mg/dL 0.1-1.3 7518268055) CALCIUM (test code = 8.7 mg/dL 8.6-10.6 2354532069) T PROTEIN (test code = 7.0 g/dL 6.3-8.2 6155804251) ALBUMIN (test code = 3.7 g/dL 3.5-5.0 8013630905) ALK PHOS (test code = 71 U/L 34-122 6708678687) ALTv (test code = 19 U/L 5-50 1742-6) AST(SGOT) (test code = 18 U/L 13-40 5934012045) eGFR (test code = 23.3 mL/min/1.73m2 5171631140) MOE (test code = MOE) Association of [...] tests). Lab Interpretation Abnormal (test code = 61946-7) [facility]. METABOLIC PANEL ([id number])2022-12-16 21:22:58 Test Item Value Reference Range Interpretation Comments NA (test code = 140 mmol/L 135-145 5972275757) K (test code = 5.2 mmol/L 3.5-5.0 H 0183462533) CL (test code = 103 mmol/L 98-108 5821256707) CO2 TOTAL (test code = 27 mmol/L 23-31 1109786117) AGAP (test code = 10 2-16 0007917957) BUN (test code = 51 mg/dL 7-23 H 7508347972) GLUCOSE (test code = 145 mg/dL 70-110 H 0645125224) CREATININE (test code = 2.84 mg/dL 0.60-1.25 H 1659715461) TOTAL BILI (test code = 0.1 mg/dL 0.1-1.2 4861151810) CALCIUM (test code = 8.7 mg/dL 8.6-10.6 7101934913) T PROTEIN (test code = 7.0 g/dL 6.3-8.2 7348708426) ALBUMIN (test code = 3.7 g/dL 3.5-5.0 9222055307) ALK PHOS (test code = 71 U/L 34-122 4097623882) ALTv (test code = 19 U/L 5-50 1742-6) AST(SGOT) (test code = 18 U/L 13-40 0902065123) eGFR (test code = 23.3 mL/min/1.73m2 8326850909) MOE (test code = MOE) Association of [...] tests). Lab Interpretation Abnormal (test code = 72122-8) [facility]YCOSYLATED HEMOGLOBIN (A1C)2022-12-16 20:33:38 Test Item Value Reference Range Interpretation Comments HGB A1C (test code = 7.3 % 4.0-5.7 H 4548-4) MOE (test code = MOE) Reference RangesNormal: <5.7%Prediabetes: 5.7 - 6.4%Diabetes: > 6.5% Lab Interpretation (test Abnormal code = 54304-3) [facility] (A1C)2022-12-16 20:33:38 Test Item Value Reference Range Interpretation Comments HGB A1C (test code = 7.3 % 4.0-5.7 H 4548-4) MOE (test code = MOE) Reference RangesNormal: <5.7%Prediabetes: 5.7 - 6.4%Diabetes: > 6.5% Lab Interpretation (test Abnormal code = 20713-9) [facility] METABOLIC PANEL (NA, K, CL, CO2, GLUCOSE, BUN, CREATININE, CA)2022-09-13 03:38:19 Test Item Value Reference Range Interpretation Comments NA (test code = 137 mmol/L 135-145 3041324078) K (test code = 5.9 mmol/L 3.5-5.0 H 5599233390) CL (test code = 103 mmol/L 98-108 9755834289) CO2 TOTAL (test code = 25 mmol/L 23-31 5812004474) AGAP (test code = 9 2-16 9284310518) BUN (test code = 23 mg/dL 7-23 9594242020) GLUCOSE (test code = 235 mg/dL 70-110 H 6800857625) CREATININE (test code = 1.14 mg/dL 0.60-1.25 6218959455) CALCIUM (test code = 8.8 mg/dL 8.6-10.6 2500037732) eGFR (test code = 66.7 mL/min/1.73m2 5956482454) MOE (test code = MOE) Association of [...] tests). Lab Interpretation Abnormal (test code = 64147-2) [facility] (AUTOMATED)2022-08-14 07:30:03 Test Item Value Reference Range Interpretation Comments POCT GLU (test code = 0932254845) 175 mg/dL 70-110 H Lab Interpretation (test code = Abnormal 78715-6) [facility] (NA, K, CL, CO2, GLUCOSE, BUN, CREATININE, CA)2022-08-14 06:49:10 Test Item Value Reference Range Interpretation Comments NA (test code = 137 mmol/L 135-145 3153707715) K (test code = 4.8 mmol/L 3.5-5.0 2657149912) CL (test code = 106 mmol/L 98-108 0413500093) CO2 TOTAL (test code = 25 mmol/L 23-31 7027387397) AGAP (test code = 6 2-16 9505864059) BUN (test code = 35 mg/dL 7-23 H 8800673945) GLUCOSE (test code = 187 mg/dL 70-110 H 2119471529) CREATININE (test code = 1.19 mg/dL 0.60-1.25 0850408443) CALCIUM (test code = 8.5 mg/dL 8.6-10.6 L 6463352760) eGFR (test code = 63.5 mL/min/1.73m2 3118673228) MOE (test code = MOE) Association of [...] tests). Lab Interpretation Abnormal (test code = 42197-2) [facility] WITH [id number] 06:35:09 Test Item Value Reference Range Interpretation Comments WBC (test code = 6.59 See_Comment [Automated 9745-2) message] The sy stem which generated this result transmitted reference range : 4.20 - 10.70 10*3/?L. The reference range was not used to interpret this result as normal/abnormal . RBC (test code = 3.10 See_Comment L [Automated 732-3) message] The sy stem which generated this [...] (test code = 58.6 fL 38.5-51.6 H 45850-8) RDW-CV (test code = 17.5 % 12.1-15.4 H 788-0) PLT (test code = 328 See_Comment [Automated 777-3) message] The sy stem which generated this result transmitted reference range : 150 - 328 10*3/ ?L. The reference r maggi was not used to interpret this result as normal/abnormal . MPV (test code = 10.1 fL 9.8-13.0 89808-7) NRBC/100 WBC (test 0.0 See_Comment [Automat ed code = 0975135608) message] The system which generated this result transmitted reference range : 0.0 - 10.0 /100 WBCs. The refer ence range was not u sed to interpret th is result as normal/abnormal . NRBC x10^3 (test code See_Comment [Auto mated = 4070998931) message] The s ystem which generated this result transmitted reference range : 10*3/?L. The reference range was not used to interpret this result as normal/abnormal . GRAN MAT (NEUT) % 63.9 % (test code = 770-8) IMM GRAN % (test code 0.50 % = 4261077975) LYMPH % (test code = 24.9 % 736-9) MONO % (test code = 7.4 % 5905-5) EOS % (test code = 2.4 % 713-8) BASO % (test code = 0.9 % 706-2) GRAN MAT x10^3(ANC) 4.21 10*3/uL 1.99-6.95 (test code = 4601742977) IMM GRAN x10^3 (test 0.03 10*3/uL 0.00-0.06 code = 0891735025) LYMPH x10^3 (test code 1.64 10*3/uL 1.09-3.23 = 731-0) MONO x10^3 (test code 0.49 10*3/uL 0.36-1.02 = 742-7) EOS x10^3 (test code = 0.16 10*3/uL 0.06-0.53 711-2) BASO x10^3 (test code 0.06 10*3/uL 0.01-0.09 = 704-7) Lab Interpretation Abnormal (test code = 32659-5) [facility] 12 [id number] 20:13:46 Test Item Value Reference Range Interpretation [...] lengthened-Electronica lly Signed By Jaspreet Cannon MD ([id number]) on 08/08/2022 3:13:43 PM [facility] 12 [id number] 20:13:46 Test Item Value Reference Range Interpretation [...] Cannon MD ([id number]) on 08/08/2022 3:13:43 PM [address]2023-04-20 20:13:46 Test Item Value Reference Range [...] Cannon MD ([id number]) on 08/08/2022 3:13:43 PM [address]2023-04-20 20:13:46 Test Item Value Reference Range [...] Cannon MD ([id number]) on 08/08/2022 3:13:43 PM [address]2023-04-20 20:13:46 Test Item Value Reference Range [...] Cannon MD ([id number]) on 08/08/2022 3:13:43 PM [address]2023-04-20 20:13:46 Test Item Value Reference Range [...] Cannon MD ([id number]) on 08/08/2022 3:13:43 PM [address]2023-04-20 20:13:46 Test Item Value Reference Range [...] Cannon MD ([id number]) on 08/08/2022 3:13:43 PM [address]2023-04-20 20:13:46 Test Item Value Reference Range [...] Cannon MD ([id number]) on 08/08/2022 3:13:43 PM [address]2023-04-20 20:13:46 Test Item Value Reference Range [...] Cannon MD ([id number]) on 08/08/2022 3:13:43 PM [address]2023-04-20 20:13:46 Test Item Value Reference Range [...] Cannon MD ([id number]) on 08/08/2022 3:13:43 PM [address]2023-04-20 20:13:46 Test Item Value Reference Range [...] [facility] 12 [id number] 20:13:46 Test Item Value Reference Range Interpretation [...] lengthened-Electronica lly Signed By Jaspreet Cannon MD ([id number]) on 08/08/2022 3:13:43 PM [facility]2023-04-20 05:30:00 Test Item Value Reference Range Interpretation Comments AFB culture No growth Specimen isolate (test after 6 weeks InformationSp ecimen code = 543-9) of Source: Tissue Specimen incubation. Site: Leg: Left Lower Extremity - [facility]2023-04-20 05:30:00 Test Item Value Reference Range Interpretation Comments AFB culture No growth Specimen isolate (test after 6 weeks InformationSp ecimen code = 543-9) of Source: Tissue Specimen incubation. Site: Leg: Left Lower Extremity - Cul [facility]2023-04-20 05:30:00 Test Item Value Reference Range Interpretation Comments AFB culture No growth Specimen isolate (test after 6 weeks InformationSp ecimen code = 543-9) of Source: Tissue Specimen incubation. Site: Leg: Left Lower Extremity - Cul [facility]2023-04-20 05:30:00 Test Item Value Reference Range Interpretation Comments AFB culture No growth Specimen isolate (test after 6 weeks InformationSp ecimen code = 543-9) of Source: Tissue Specimen incubation. Site: Leg: Left Lower Extremity - Cul [facility]2023-04-20 05:30:00 Test Item Value Reference Range Interpretation Comments AFB culture No growth Specimen isolate (test after 6 weeks InformationSp ecimen code = 543-9) of Source: Tissue Specimen incubation. Site: Leg: Left Lower Extremity - [facility]2023-04-20 05:30:00 Test Item Value Reference Range Interpretation Comments AFB culture No growth Specimen isolate (test after 6 weeks InformationSp ecimen code = 543-9) of Source: Tissue Specimen incubation. Site: Leg: Left Lower Extremity - [facility]2023-04-20 05:30:00 Test Item Value Reference Range Interpretation Comments AFB culture No growth Specimen isolate (test after 6 weeks InformationSp ecimen code = 543-9) of Source: Tissue Specimen incubation. Site: Leg: Left Lower Extremity [facility]2023-04-20 05:30:00 Test Item Value Reference Range Interpretation Comments AFB culture No growth Specimen isolate (test after 6 weeks InformationSp ecimen code = 543-9) of Source: Tissue Specimen incubation. Site: Leg: Left Lower Extremity [facility]2023-04-20 05:30:00 Test Item Value Reference Range Interpretation Comments AFB culture No growth Specimen isolate (test after 6 weeks InformationSp ecimen code = 543-9) of Source: Tissue Specimen incubation. Site: Leg: Left [facility] Extremity [facility]2023-04-20 05:30:00 Test Item Value Reference Range Interpretation Comments AFB culture No growth Specimen isolate (test after 6 weeks InformationSp ecimen code = 543-9) of Source: Tissue Specimen incubation. Site: Leg: Left Lower Extremity [facility]2023-04-20 05:30:00 Test Item Value Reference Range Interpretation Comments AFB culture No growth Specimen isolate (test after 6 weeks InformationSp ecimen code = 543-9) of Source: Tissue Specimen incubation. Site: Leg: Left Lower Extremity [facility]2023-04-20 05:30:00 Test Item Value Reference Range Interpretation Comments AFB culture No growth Specimen isolate (test after 6 weeks InformationSp ecimen code = 543-9) of Source: Tissue Specimen incubation. Site: Leg: Left Lower Extremity [facility] (AUTOMATED)2022-07-31 22:28:25 Test Item Value Reference Range Interpretation Comments POCT GLU (test code = 8388157354) 116 mg/dL 70-110 H Lab Interpretation (test code = Abnormal 98813-2) [facility] GLUCOSE (AUTOMATED)2022-07-31 17:14:36 Test Item Value Reference Range Interpretation Comments POCT GLU (test code = 7115262556) 136 mg/dL 70-110 H Lab Interpretation (test code = Abnormal 20457-6) [facility] GLUCOSE (AUTOMATED)2022-07-31 01:47:10 Test Item Value Reference Range Interpretation Comments POCT GLU (test code = 0207588521) 141 mg/dL 70-110 H Lab Interpretation (test code = Abnormal 09437-1) [facility] GLUCOSE (AUTOMATED)2022-07-30 23:18:09 Test Item Value Reference Range Interpretation Comments POCT GLU (test code = 0820087948) 140 mg/dL 70-110 H Lab Interpretation (test code = Abnormal 27224-1) [facility] GLUCOSE (AUTOMATED)2022-07-30 18:43:38 Test Item Value Reference Range Interpretation Comments POCT GLU (test code = 2845561301) 165 mg/dL 70-110 H Lab Interpretation (test code = Abnormal 16736-2) [facility] GLUCOSE (AUTOMATED)2022-07-30 14:19:36 Test Item Value Reference Range Interpretation Comments POCT GLU (test code = 1150258967) 90 mg/dL 70-110 Lab Interpretation (test code = Normal 40644-4) [facility] GLUCOSE (AUTOMATED)2022-07-30 01:37:57 Test Item Value Reference Range Interpretation Comments POCT GLU (test code = 9476012127) 100 mg/dL 70-110 Lab Interpretation (test code = Normal 45745-1) [facility] GLUCOSE (AUTOMATED)2022-07-29 22:44:33 Test Item Value Reference Range Interpretation Comments POCT GLU (test code = 3299082069) 113 mg/dL 70-110 H Lab Interpretation (test code = Abnormal 36920-5) [facility] GLUCOSE (AUTOMATED)2022-07-29 18:36:00 Test Item Value Reference Range Interpretation Comments POCT GLU (test code = 0616372218) 108 mg/dL 70-110 Lab Interpretation (test code = Normal 75482-2) [facility] GLUCOSE (AUTOMATED)2022-07-29 13:47:37 Test Item Value Reference Range Interpretation Comments POCT GLU (test code = 0937331762) 91 mg/dL 70-110 Lab Interpretation (test code = Normal 32448-8) [facility] GLUCOSE (AUTOMATED)2022-07-29 01:19:16 Test Item Value Reference Range Interpretation Comments POCT GLU (test code = 2358019654) 143 mg/dL 70-110 H Lab Interpretation (test code = Abnormal 99491-6) [facility] GLUCOSE (AUTOMATED)2022-07-28 21:10:26 Test Item Value Reference Range Interpretation Comments POCT GLU (test code = 8758203702) 148 mg/dL 70-110 H Lab Interpretation (test code = Abnormal 17584-4) [facility] GLUCOSE (AUTOMATED)2022-07-28 17:13:13 Test Item Value Reference Range Interpretation Comments POCT GLU (test code = 3554968062) 199 mg/dL 70-110 H Lab Interpretation (test code = Abnormal 99200-5) [facility] GLUCOSE (AUTOMATED)2022-07-28 12:53:47 Test Item Value Reference Range Interpretation Comments POCT GLU (test code = 2778865963) 113 mg/dL 70-110 H Lab Interpretation (test code = Abnormal 90226-6) [facility] GLUCOSE (AUTOMATED)2022-07-28 08:02:41 Test Item Value Reference Range Interpretation Comments POCT GLU (test code = 5273657503) 126 mg/dL 70-110 H Lab Interpretation (test code = Abnormal 13703-7) [facility] [id number] 05:40:00 Test Item Value Reference Range Interpretation Comments Fungus culture No growth Specimen isolate (test after 4 weeks InformationSp ecimen code = 580-1) of Source: Tissue Specimen incubation. Site: Leg: Left Lower Extremity [facility] [id number] 05:40:00 Test Item Value Reference Range Interpretation Comments Fungus culture No growth Specimen isolate (test after 4 weeks InformationSp ecimen code = 580-1) of Source: Tissue Specimen incubation. Site: Leg: Left Lower Extremity - [facility] [id number] 05:40:00 Test Item Value Reference Range Interpretation Comments Fungus culture No growth Specimen isolate (test after 4 weeks InformationSp ecimen code = 580-1) of Source: Tissue Specimen incubation. Site: Leg: Left Lower Extremity - [facility] [id number] 05:40:00 Test Item Value Reference Range Interpretation Comments Fungus culture No growth Specimen isolate (test after 4 weeks InformationSp ecimen code = 580-1) of Source: Tissue Specimen incubation. Site: Leg: Left Lower Extremity - [facility] [id number] 05:40:00 Test Item Value Reference Range Interpretation Comments Fungus culture No growth Specimen isolate (test after 4 weeks InformationSp ecimen code = 580-1) of Source: Tissue Specimen incubation. Site: Leg: Left Lower Extremity - [facility] [id number] 05:40:00 Test Item Value Reference Range Interpretation Comments Fungus culture No growth Specimen isolate (test after 4 weeks InformationSp ecimen code = 580-1) of Source: Tissue Specimen incubation. Site: Leg: Left Lower Extremity - [facility] [id number] 05:40:00 Test Item Value Reference Range Interpretation Comments Fungus culture No growth Specimen isolate (test after 4 weeks InformationSp ecimen code = 580-1) of Source: Tissue Specimen incubation. Site: Leg: Left Lower Extremity - [facility] [id number] 05:40:00 Test Item Value Reference Range Interpretation Comments Fungus culture No growth Specimen isolate (test after 4 weeks InformationSp ecimen code = 580-1) of Source: Tissue Specimen incubation. Site: Leg: Left Lower Extremity - [facility] [id number] 05:40:00 Test Item Value Reference Range Interpretation Comments Fungus culture No growth Specimen isolate (test after 4 weeks InformationSp ecimen code = 580-1) of Source: Tissue Specimen incubation. Site: Leg: Left Lower Extremity - [facility] [id number] 05:40:00 Test Item Value Reference Range Interpretation Comments Fungus culture No growth Specimen isolate (test after 4 weeks InformationSp ecimen code = 580-1) of Source: Tissue Specimen incubation. Site: Leg: Left Lower Extremity - [facility] [id number] 05:40:00 Test Item Value Reference Range Interpretation Comments Fungus culture No growth Specimen isolate (test after 4 weeks InformationSp ecimen code = 580-1) of Source: Tissue Specimen incubation. Site: Leg: Left Lower Extremity - [facility] [id number] 05:40:00 Test Item Value Reference Range Interpretation Comments Fungus culture No growth Specimen isolate (test after 4 weeks InformationSp ecimen code = 580-1) of Source: Tissue Specimen incubation. Site: Leg: Left Lower Extremity - [facility]. Metabolic Panel (90489)2022-07-19 03:26:53 Test Item Value Reference Range Interpretation Comments NA (test code = 140 mmol/L 135-145 9601924604) K (test code = 5.3 mmol/L 3.5-5.0 H 9797146465) CL (test code = 101 mmol/L 98-108 1917818341) CO2 TOTAL (test code = 27 mmol/L 23-31 5121691718) AGAP (test code = 12 2-16 0070273001) BUN (test code = 30 mg/dL 7-23 H 6648539927) GLUCOSE (test code = 189 mg/dL 70-110 H 0724638624) CREATININE (test code = 1.24 mg/dL 0.60-1.25 4050804859) TOTAL BILI (test code = 0.4 mg/dL 0.1-1.2 0837808650) CALCIUM (test code = 9.3 mg/dL 8.6-10.6 7040828228) T PROTEIN (test code = 8.0 g/dL 6.3-8.2 9396709723) ALBUMIN (test code = 4.1 g/dL 3.5-5.0 7734868567) ALK PHOS (test code = 107 U/L 34-122 6361291139) ALTv (test code = 43 U/L 5-50 1742-6) AST(SGOT) (test code = 38 U/L 13-40 6060159069) eGFR (test code = 60.5 mL/min/1.73m2 4051545187) MOE (test code = MOE) Association of [...] tests). Lab Interpretation Abnormal (test code = 80505-2) [facility] with [id number] 03:23:09 Test Item Value Reference Range Interpretation Comments WBC (test code = 6.48 See_Comment [Automated 9421-2) message] The sy stem which generated this result transmitted reference range : 4.20 - 10.70 10*3/?L. The reference range was not used to interpret this result as normal/abnormal . RBC (test code = 4.08 See_Comment L [Automated 489-8) message] The sy stem which generated this [...] RDW-SD (test code = 49.0 fL 38.5-51.6 29737-5) RDW-CV (test code = 15.0 % 12.1-15.4 788-0) PLT (test code = 542 See_Comment H [Automated 777-3) message] The sy stem which generated this result transmitted reference range : 150 - 328 10*3/ ?L. The reference r maggi was not used to interpret this result as normal/abnormal . MPV (test code = 9.6 fL 9.8-13.0 L 12972-0) NRBC/100 WBC (test 0.0 See_Comment [Automat ed code = 9961935908) message] The system which generated this result transmitted reference range : 0.0 - 10.0 /100 WBCs. The refer ence range was not u sed to interpret th is result as normal/abnormal . NRBC x10^3 (test code See_Comment [Auto mated = 4810398837) message] The s ystem which generated this result transmitted reference range : 10*3/?L. The reference range was not used to interpret this result as normal/abnormal . GRAN MAT (NEUT) % 60.7 % (test code = 770-8) IMM GRAN % (test code 0.50 % = 1018345854) LYMPH % (test code = 28.2 % 736-9) MONO % (test code = 6.9 % 5905-5) EOS % (test code = 2.5 % 713-8) BASO % (test code = 1.2 % 706-2) GRAN MAT x10^3(ANC) 3.93 10*3/uL 1.99-6.95 (test code = 7420803576) IMM GRAN x10^3 (test 0.03 10*3/uL 0.00-0.06 code = 9849027037) LYMPH x10^3 (test code 1.83 10*3/uL 1.09-3.23 = 731-0) MONO x10^3 (test code 0.45 10*3/uL 0.36-1.02 = 742-7) EOS x10^3 (test code = 0.16 10*3/uL 0.06-0.53 711-2) BASO x10^3 (test code 0.08 10*3/uL 0.01-0.09 = 704-7) Lab Interpretation Abnormal (test code = 43190-2) [facility] [id number] 16:22:00 Test Item Value Reference Range Interpretation Comments POC glucose (test code = 245 mg/dL 65-100 H Ope rator Name: Marilin 58836-2) GarzaDevice ID: [id number] Lab Interpretation (test Abnormal code = 60767-3) [facility]2023-03-15 16:22:00 Test Item Value Reference Range Interpretation Comments POC glucose (test code = 245 mg/dL 65-100 H Ope rator Name: Marilin 21920-5) GarzaDevice ID: [id number] Lab Interpretation (test Abnormal code = 20263-6) [facility]2023-03-15 16:22:00 Test Item Value Reference Range Interpretation Comments POC glucose (test code = 245 mg/dL 65-100 H Ope rator Name: Marilin 22941-3) GarzaDevice ID: [id number] Lab Interpretation (test Abnormal code = 57277-1) [facility]2023-03-15 16:22:00 Test Item Value Reference Range Interpretation Comments POC glucose (test code = 245 mg/dL 65-100 H Ope rator Name: Marilin 92982-3) GarzaDevice ID: [id number] Lab Interpretation (test Abnormal code = 47139-8) [facility] [id number] 16:22:00 Test Item Value Reference Range Interpretation Comments POC glucose (test code = 245 mg/dL 65-100 H Ope rator Name: Marilin 35961-5) GarzaDevice ID: [id number] Lab Interpretation (test Abnormal code = 57731-9) [facility] [id number] 16:22:00 Test Item Value Reference Range Interpretation Comments POC glucose (test code = 245 mg/dL 65-100 H Ope rator Name: Marilin 54640-0) GarzaDevice ID: [id number] Lab Interpretation (test Abnormal code = 09573-9) [facility]2023-03-15 16:22:00 Test Item Value Reference Range Interpretation Comments POC glucose (test code = 245 mg/dL 65-100 H Ope rator Name: Marilin 59479-6) GarzaDevice ID: [id number] Lab Interpretation (test Abnormal code = 89457-0) [facility]2023-03-15 16:22:00 Test Item Value Reference Range Interpretation Comments POC glucose (test code = 245 mg/dL 65-100 H Ope rator Name: Marilin 53121-0) GarzaDevice ID: [id number] Lab Interpretation (test Abnormal code = 98627-8) [facility]2023-03-15 16:22:00 Test Item Value Reference Range Interpretation Comments POC glucose (test code = 245 mg/dL 65-100 H Ope rator Name: Marilin 52943-4) GarzaDevice ID: [id number] Lab Interpretation (test Abnormal code = 54365-2) [facility]2023-03-15 16:22:00 Test Item Value Reference Range Interpretation Comments POC glucose (test code = 245 mg/dL 65-100 H Ope rator Name: Marilin 16394-6) GarzaDevice ID: [id number] Lab Interpretation (test Abnormal code = 18186-3) [facility]2023-03-15 16:22:00 Test Item Value Reference Range Interpretation Comments POC glucose (test code = 245 mg/dL 65-100 H Ope rator Name: Marilin 23850-9) GarzaDevice ID: [id number] Lab Interpretation (test Abnormal code = 66323-8) [facility]2023-03-15 16:22:00 Test Item Value Reference Range Interpretation Comments POC glucose (test code = 245 mg/dL 65-100 H Ope rator Name: Marilin 19302-2) Connor ID: [id number] Lab Interpretation (test Abnormal code = 46818-9) [id number]:17:00 Test Item Value Reference Range Interpretation Comments IMP PCR (test NOT DETECTED Specimen Infor mationSpecimen code = Source: [facility] Site: [address] [place] [address]) Tissue [id number] 07 OXA-48 PCR NOT DETECTED (test code = 8006) [facility] [id number] 19:17:00 Test Item Value Reference Range Interpretation Comments IMP PCR (test NOT DETECTED Specimen Infor mationSpecimen code = Source: [facility] Site: [address] [place] [address]) Tissue [id number] 07 OXA-48 PCR NOT DETECTED (test code = 8006) [facility] [id number] 19:17:00 Test Item Value Reference Range Interpretation Comments IMP PCR (test NOT DETECTED Specimen Infor mationSpecimen code = Source: [facility] Site: 51854-2) Tissue D1352032 07 OXA-48 PCR NOT DETECTED (test code = 8006) [facility] [id number] 19:17:00 Test Item Value Reference Range Interpretation Comments IMP PCR (test NOT DETECTED Specimen Infor mationSpecimen code = Source: [facility] Site: 03475-4) Tissue [id number] 07 OXA-48 PCR NOT DETECTED (test code = 8006) [facility] [id number] 19:17:00 Test Item Value Reference Range Interpretation Comments IMP PCR (test NOT DETECTED Specimen Infor mationSpecimen code = Source: [facility] Site: [address] [place] [address]) Tissue [id number] 07 OXA-48 PCR NOT DETECTED (test code = 8006) [facility] [id number] 19:17:00 Test Item Value Reference Range Interpretation Comments IMP PCR (test NOT DETECTED Specimen Infor mationSpecimen code = Source: [facility] Site: [address] [place] [address]) Tissue [id number] 07 OXA-48 PCR NOT DETECTED (test code = 8006) [facility] [id number] 19:17:00 Test Item Value Reference Range Interpretation Comments IMP PCR (test NOT DETECTED Specimen Infor mationSpecimen code = Source: [facility] Site: 65713-5) Tissue [id number] 07 OXA-48 PCR NOT DETECTED (test code = 8006) [facility] [id number] 19:17:00 Test Item Value Reference Range Interpretation Comments IMP PCR (test NOT DETECTED Specimen Infor mationSpecimen code = Source: [facility] Site: 90658-5) Tissue [id number] 07 OXA-48 PCR NOT DETECTED (test code = 8006) [facility] [id number] 19:17:00 Test Item Value Reference Range Interpretation Comments IMP PCR (test NOT DETECTED Specimen Infor mationSpecimen code = Source: [facility] Site: [address] [place] [address]) Tissue [id number] 07 OXA-48 PCR NOT DETECTED (test code = 8006) [facility] [id number] 19:17:00 Test Item Value Reference Range Interpretation Comments IMP PCR (test NOT DETECTED Specimen Infor mationSpecimen code = Source: [facility] Site: [address] [place] [address]) Tissue [id number] 07 OXA-48 PCR NOT DETECTED (test code = 8006) [facility] [id number] 19:17:00 Test Item Value Reference Range Interpretation Comments IMP PCR (test NOT DETECTED Specimen Infor mationSpecimen code = Source: [facility] Site: 66331-8) Tissue [id number] 07 OXA-48 PCR NOT DETECTED (test code = 8006) [facility] [id number] 19:17:00 Test Item Value Reference Range Interpretation Comments IMP PCR (test NOT DETECTED Specimen Infor mationSpecimen code = Source: [facility] Site: [address] [place] [address]) Tissue [id number] 07 OXA-48 PCR NOT DETECTED (test code = 8006) [facility] [id number] 13:15:00 Test Item Value Reference Range Interpretation Comments Anaerobic No anaerobic Specimen culture isolate organisms InformationS pecimen (test code = isolated. Source: TissueS pecimen 13180-6) Site: Leg: Left Lower Extremity - [place] 313433-03-13 13:15:00 Test Item Value Reference Range Interpretation Comments Anaerobic No anaerobic Specimen culture isolate organisms InformationS pecimen (test code = isolated. Source: TissueS pecimen 55263-0) Site: Leg: Left Lower Extremity - [place] 313433-03-13 13:15:00 Test Item Value Reference Range Interpretation Comments Anaerobic No anaerobic Specimen culture isolate organisms InformationS pecimen (test code = isolated. Source: TissueS pecimen 32425-1) Site: Leg: Left Lower Extremity - [place] 313433-03-13 13:15:00 Test Item Value Reference Range Interpretation Comments Anaerobic No anaerobic Specimen culture isolate organisms InformationS pecimen (test code = isolated. Source: TissueS pecimen 74028-3) Site: Leg: Left Lower Extremity [place] 342993-03-13 13:15:00 Test Item Value Reference Range Interpretation Comments Anaerobic No anaerobic Specimen culture isolate organisms InformationS pecimen (test code = isolated. Source: TissueS pecimen 28564-7) Site: Leg: Left Lower Extremity - [place] 313433-03-13 13:15:00 Test Item Value Reference Range Interpretation Comments Anaerobic No anaerobic Specimen culture isolate organisms InformationS pecimen (test code = isolated. Source: TissueS pecimen 92182-2) Site: Leg: Left Lower Extremity - [place] 313433-03-13 13:15:00 Test Item Value Reference Range Interpretation Comments Anaerobic No anaerobic Specimen culture isolate organisms InformationS pecimen (test code = isolated. Source: TissueS pecimen 11565-9) Site: Leg: Left Lower Extremity - [place] 313433-03-13 13:15:00 Test Item Value Reference Range Interpretation Comments Anaerobic No anaerobic Specimen culture isolate organisms InformationS pecimen (test code = isolated. Source: TissueS pecimen 31044-3) Site: Leg: Left Lower Extremity - [place] 313433-03-13 13:15:00 Test Item Value Reference Range Interpretation Comments Anaerobic No anaerobic Specimen culture isolate organisms InformationS pecimen (test code = isolated. Source: TissueS [facility] 41195-3) Site: Leg: Left Lower Extremity - [facility]2023-03-13 13:15:00 Test Item Value Reference Range Interpretation Comments Anaerobic No anaerobic Specimen culture isolate organisms InformationS pecimen (test code = isolated. Source: TissueS [facility] 78201-7) Site: Leg: Left Lower Extremity - [facility] [id number] 13:15:00 Test Item Value Reference Range Interpretation Comments Anaerobic No anaerobic Specimen culture isolate organisms InformationS pecimen (test code = isolated. Source: TissueS [facility] 76602-8) Site: Leg: Left Lower Extremity [facility]2023-03-13 13:15:00 Test Item Value Reference Range Interpretation Comments Anaerobic No anaerobic Specimen culture isolate organisms InformationS pecimen (test code = isolated. Source: TissueS [facility] 11438-5) Site: Leg: Left Lower Extremity [facility] [id number] 14:49:00 Test Item Value Reference Range Interpretation Comments AFB stain No acid fast Specimen (test code = bacilli (AFB) InformationSpe cimen 676-7) seen. Source: [facility] Site: Leg: Left Lower Extremity [facility]2023-03-11 14:49:00 Test Item Value Reference Range Interpretation Comments AFB stain No acid fast Specimen (test code = bacilli (AFB) InformationSpe cimen 676-7) seen. Source: [facility] Site: Leg: Left Lower Extremity [facility] [id number] 14:49:00 Test Item Value Reference Range Interpretation Comments AFB stain No acid fast Specimen (test code = bacilli (AFB) InformationSpe cimen 676-7) seen. Source: TissueS [facility] Site: Leg: Left Lower Extremity [facility] [id number] 14:49:00 Test Item Value Reference Range Interpretation Comments AFB stain No acid fast Specimen (test code = bacilli (AFB) InformationSpe cimen 676-7) seen. Source: [facility] Site: [id number] 14:49:00 Test Item Value Reference Range Interpretation Comments AFB stain No acid fast Specimen (test code = bacilli (AFB) InformationSpe cimen 676-7) seen. Source: [facility] Site: Leg: [facility] [id number] 14:49:00 Test Item Value Reference Range Interpretation Comments AFB stain No acid fast Specimen (test code = bacilli (AFB) InformationSpe cimen 676-7) seen. Source: [facility] Site: Leg[facility] [id number] 14:49:00 Test Item Value Reference Range Interpretation Comments AFB stain No acid fast Specimen (test code = bacilli (AFB) InformationSpe cimen 676-7) seen. Source: [facility] Site: Leg: [facility] [id number] 14:49:00 Test Item Value Reference Range Interpretation Comments AFB stain No acid fast Specimen (test code = bacilli (AFB) InformationSpe cimen 676-7) seen. [facility]: [facility] Site: [facility] [id number] 14:49:00 Test Item Value Reference Range Interpretation Comments AFB stain No acid fast Specimen (test code = bacilli (AFB) InformationSpe cimen 676-7) seen. Source: [facility] Site: Leg[facility] [id number] 14:49:00 Test Item Value Reference Range Interpretation Comments AFB stain No acid fast Specimen (test code = bacilli (AFB) InformationSpe cimen 676-7) seen. Source: [facility] Site: Leg: [facility] [id number] 14:49:00 Test Item Value Reference Range Interpretation Comments AFB stain No acid fast Specimen (test code = bacilli (AFB) InformationSpe cimen 676-7) seen. Source: [facility] Site: Leg: Left Lower Extremity - Cul [facility]ure [facility] [id number] 14:49:00 Test Item Value Reference Range Interpretation Comments AFB stain No acid fast Specimen (test code = bacilli (AFB) [facility] 676-7) seen. Source: [facility] Site: Leg: Left Lower Extremity - Cul ture [facility] [id number] 18:08:00 Test Item Value Reference Range Interpretation Comments Fungus smear No fungi Specimen (test code = observed. InformationPsykosoft Source: 1443) [facility]: Leg: Left Lower Extr emity - [facility] [id number] 18:08:00 Test Item Value Reference Range Interpretation Comments Fungus smear No fungi Specimen (test code = observed. [employer] Source: 1443) [facility] Site: Leg: Left Lower Extr emity - [facility] [id number] 18:08:00 Test Item Value Reference Range Interpretation Comments Fungus smear No fungi Specimen (test code = observed. [employer] Source: 1443) [facility] Site: Leg: Left Lower Extr emity - Culture [facility] [id number] 18:08:00 Test Item Value Reference Range Interpretation Comments Fungus smear No fungi Specimen (test code = observed. [employer] Source: 1443) [facility] Site: Leg: Left Lower Extr emity - [facility] [id number] 18:08:00 Test Item Value Reference Range Interpretation Comments Fungus smear No fungi Specimen (test code = observed. [employer] Source: 1443) [facility] Site: Leg: Left Lower Extr emity - [facility] [id number] 18:08:00 Test Item Value Reference Range Interpretation Comments Fungus smear No fungi Specimen (test code = observed. [employer] Source: 1443) [facility]: [facility] Lower Extr emity - [facility] [id number] 18:08:00 Test Item Value Reference Range Interpretation Comments Fungus smear No fungi Specimen (test code = observed. InformationPsykosoft Source: 1443) [facility] Site: Leg: Left Lower Extr emity - [facility] [id number] 18:08:00 Test Item Value Reference Range Interpretation Comments Fungus smear No fungi Specimen (test code = observed. InformationSpec imen Source: 1443) TissueSpecimen Site: Leg: Left Lower Extr emity - [facility] [id number] 18:08:00 Test Item Value Reference Range Interpretation Comments Fungus smear No fungi Specimen (test code = observed. InformationSpec imen Source: 1443) TissueSpecimen Site: Leg: Left Lower Extr emity - [facility] [id number] 18:08:00 Test Item Value Reference Range Interpretation Comments Fungus smear No fungi Specimen (test code = observed. InformationSpec imen Source: 1443) TissueSpecimen Site: Leg: Left Lower Extr emity - Culture [facility] [id number] 18:08:00 Test Item Value Reference Range Interpretation Comments Fungus smear No fungi Specimen (test code = observed. InformationSpec imen Source: 1443) TissueSpecimen Site: Leg: Left Lower Extr emity - Culture [facility] [id number] 18:08:00 Test Item Value Reference Range Interpretation Comments Fungus smear No fungi Specimen (test code = observed. InformationSpec imen Source: 1443) TissueSpecimen Site: Leg: Left Lower Extr emity - Culture [facility] [id number] 17:14:00 Test Item Value Reference Range Interpretation Comments Gram stain Few Gram Specimen isolate (test negative rods InformationSp ecimen code = 1469) Source: [facility] Site: Leg: Left Lower Extremity - Cul ture [facility] [id number] 17:14:00 Test Item Value Reference Range Interpretation Comments Gram stain Few Gram Specimen isolate (test negative rods InformationSp ecimen code = 1469) Source: TissueS pecimen Site: Leg: Left Lower Extremity - Cul ture [facility] [id number] 17:14:00 Test Item Value Reference Range Interpretation Comments Gram stain Few Gram Specimen isolate (test negative rods InformationSp ecimen code = 1469) Source: [facility] Site: Leg: Left Lower Extremity - Cul ture [facility] [id number] 17:14:00 Test Item Value Reference Range Interpretation Comments Gram stain Few Gram Specimen isolate (test negative rods InformationSp ecimen code = 1469) Source: [facility] Site: Leg: Left Lower Extremity - [facility] [id number] 17:14:00 Test Item Value Reference Range Interpretation Comments Gram stain Few Gram Specimen isolate (test negative rods InformationSp ecimen code = 1469) Source: [facility] Site: Leg: Left Lower Extremity - [facility] [id number] 17:14:00 Test Item Value Reference Range Interpretation Comments Gram stain Few Gram Specimen isolate (test negative rods InformationSp ecimen code = 1469) Source: [facility] Site: Leg: Left Lower Extremity [facility] [id number] 17:14:00 Test Item Value Reference Range Interpretation Comments Gram stain Few Gram Specimen isolate (test negative rods InformationSp ecimen code = 1469) Source: [facility] Site: Leg: Left Lower Extremity [facility]2023-03-09 17:14:00 Test Item Value Reference Range Interpretation Comments Gram stain Few Gram Specimen isolate (test negative rods InformationSp ecimen code = 1469) Source: [facility] Site: Leg: Left Lower Extremity [facility] [id number] 17:14:00 Test Item Value Reference Range Interpretation Comments Gram stain Few Gram Specimen isolate (test negative rods InformationSp ecimen code = 1469) Source: [facility] Site: Leg: Left Lower Extremity [facility]2023-03-09 17:14:00 Test Item Value Reference Range Interpretation Comments Gram stain Few Gram Specimen isolate (test negative rods InformationSp ecimen code = 1469) Source: [facility] Site: Leg: Left Lower Extremity [facility] [id number] 17:14:00 Test Item Value Reference Range Interpretation Comments Gram stain Few Gram Specimen isolate (test negative rods InformationSp ecimen code = 1469) Source: [facility] Site: Leg: Left Lower Extremity [facility] [id number] 17:14:00 Test Item Value Reference Range Interpretation Comments Gram stain Few Gram Specimen isolate (test negative rods InformationSp ecimen code = 1469) Source: [facility] Site: Leg: Left Lower Extremity - Cul [facility]ure [facility] [id number] 22:46:05 Test Item Value Reference Range Interpretation Comments Case number (test code = [id number]) Surgical pathology See link below for report (test code = PDF Lab Report 2255) Result status (test code This is Final Report = [id number]) for [address] pathology [id number] 22:46:05 Test Item Value Reference Range Interpretation Comments Case number (test code = [id number]) Surgical pathology See link below for report (test code = PDF Lab Report 2255) Result status (test code This is Final Report = [id number]) for [address] pathology [id number] 22:46:05 Test Item Value Reference Range Interpretation Comments Case number (test code = [id number]) Surgical pathology See link below for report (test code = PDF Lab Report 2255) Result status (test code This is Final Report = [id number]) for [address] pathology [id number] 22:46:05 Test Item Value Reference Range Interpretation Comments Case number (test code = [id number]) Surgical pathology See link below for report (test code = PDF Lab Report 2255) Result status (test code This is Final Report = [id number]) for [address] pathology [id number] 22:46:05 Test Item Value Reference Range Interpretation Comments Case number (test code = [id number]) Surgical pathology See link below for report (test code = PDF Lab Report 2255) Result status (test code This is Final Report = 0216901) for [address] pathology [id number] 22:46:05 Test Item Value Reference Range Interpretation Comments Case number (test code = [id number]) Surgical pathology See link below for report (test code = PDF Lab Report 2255) Result status (test code This is Final Report = 2926440) for [address] pathology [id number] 22:46:05 Test Item Value Reference Range Interpretation Comments Case number (test code = [id number]) Surgical pathology See link below for report (test code = PDF Lab Report 225) Result status (test code This is Final Report = 3221418) for [address] pathology [id number] 22:46:05 Test Item Value Reference Range Interpretation Comments Case number (test code = [id number]) Surgical pathology See link below for report (test code = PDF Lab Report 225) Result status (test code This is Final Report = 3377174) for [address] pathology [id number] 22:46:05 Test Item Value Reference Range Interpretation Comments Case number (test code = [id number]) Surgical pathology See link below for report (test code = PDF Lab Report 225) Result status (test code This is Final Report = 5905427) for [address] pathology [id number] 22:46:05 Test Item Value Reference Range Interpretation Comments Case number (test code = [id number]) Surgical pathology See link below for report (test code = PDF Lab Report 225) Result status (test code This is Final Report = 3365647) for [address] pathology [id number] 22:46:05 Test Item Value Reference Range Interpretation Comments Case number (test code = [id number]) Surgical pathology See link below for report (test code = PDF Lab Report 225) Result status (test code This is Final Report = 2309141) for [address] pathology [id number] 22:46:05 Test Item Value Reference Range Interpretation Comments Case number (test code = [id number]) Surgical pathology See link below for report (test code = PDF Lab Report 225) Result status (test code This is Final Report = 6023982) [address] [facility]ch[address] Complete, (w Contrast, Strain and 3D if needed)2022-05-10 21:23:23 Test Item Value Reference Interpretation Comments Range Ao Root Diameter 3.34 cm (test code = 9133094941) AoV Area, Vmax (test 3.02 cm2 >=1.5 [Autom ated code = 1495820292) message] The system which generated this result transmitted reference range : >=1.5. The reference range was not used to interpret this result as normal/abnormal . AoV Area, VTI (test 3.07 cm2 code = 2758925840) AoV Mean PG (test 4.26 mmHg code = 4776939146) AoV Peak PG (test 6.38 mmHg code = 6332342339) AoV Vmax (test code 1.42 m/s = 3486371038) AoV VTI (test code = 0.26 m 0413054438) BSA Rashid (test code 2.11 m2 = 3850926768) BSA (test code = 2.02 m2 6707919859) IVS,d (test code = 0.84 cm 0.6-9 2003964530) IVS/LVPW,2D (test 0.98 code = 5042721616) Left Atrium 3.49 cm Dimension Anterior (test code = 8898926095) LV,d (test code = 4.74 cm 0272365012) LV EF,2D (test code 64.34 % = 1378202413) LV,s (test code = 3.36 cm 1134372013) LVOT area (test code 3.53 cm2 = 5899849706) LVOT Diam,S (test 2.12 cm code = 3000838705) LVOT Vmax (test code 1.13 m/s = 1652144583) LVOT VTI (test code 0.21 m = 5548219503) LVPWD,d (test code = 0.85 cm 0.60-1.19 3402679250) MV E A ratio (test 0.86 code = 0087200371) AoV area i VTI BSA 1.52 cm2/m2 >=0.85 [Automat ed [place] (test code = message] The 7232303455) system which generated this result transmitted reference range : >=0.85. The reference range was not used to interpret this result as normal/abnormal . BMI (test code = 31.32 kg/m2 7176280492) E wave decelartion 89.56 See_Comment A [Automat ed time (test code = message] T he 1625204381) system which generated this result transmitted reference range : 200 msec. The reference range was not used to interpret this result as normal/abnormal . MV Peak A Sander (test 0.88 m/s code = 4389483660) MV valve area p 1/2 8.47 cm2 method (test code = 1295914671) MV Peak E Sander (test 0.75 m/s code = 4255463400) MV stenosis pressure 25.97 ms 1/2 time (test code = 2796174773) LVOT stroke volume 0.74 ml (test code = 9095148529) AV LVOT peak 4.69 mmHg gradient (test code = 1206325737) Ao Root Diameter 3.34 cm (test code = 4746238953) MV mean gradient 1.92 mmHg (test code = 0684717682) LV SYS VOL (test 46.16 ml 21-61 code = 2919990824) LV ANDERSON VOL (test 104.46 ml 62-150 code = 8885043706) LA area s A4C (test 17.60 cm2 code = 6728850123) LV SI Teich 2D (test 28.83 ml/m2 code = 9792707655) LV SV Teich 2D (test 58.30 ml code = 0653820077) LV Vol s Teich PSAX 46.16 ml (test code = 3318335508) LVOT CI (test code = 3.53 l/min/m2 0105571838) LVOT CO (test code = 7.14 l/min 4480582420) LVOT HR for LVOT CO 98.89 bpm (test code = 4258872207) LVOT SI (test code = 35.72 ml/m2 5560346194) MR peak grad (test 3.00 mmHg code = 1966331424) MV Vmax (test code = 0.87 m 6061687775) MV VTI Tips (test 0.14 m code = 8366324441) BSA Haycock (test 2.10 m2 code = 8902007339) AoV Vmn (test code = 0.97 m/s 6398770401) IVS s 2D (test code 1.17 cm = 8404893482) LV FS Teich 2D (test 29.09 code = 3748880556) MV AE ratio (test 1.17 code = 7889691427) LV FS Cube 2D (test 29.09 code = 3090971260) LVOT Vmn (test code 0.75 = 2407964449) Pt Size (test code = 170.18 0346330221) Pt Wt (test code = 90.72 1220417983) Aov area Vmn (test 3.05 cm2 code = 7718882725) LVOT mean grad (test 2.57 mmHg code = 4443774901) 85 of MPHR (test 140.25 code = 9280003961) AoV area I VMN bsa 1.51 cm2/m2 (test code = 4118468999) Calc MPHR (test code 165.01 bpm = 4238224234) IVS pct thck PLAX 39.76 % (test code = 2951808479) LV SI Cube 2D (test 33.91 ml/m2 code = 3793135375) LV SV Cube 2D (test 68.57 ml code = 5967770838) LV vol d cube 2D 106.56 ml (test code = 4250362593) LV vol s cube 2D 38.00 ml (test code = 7939638277) LVPW pct thck PLAX 35.24 % (test code = 0489867773) LVPW s PLAX (test 1.16 cm code = 5141122375) MV Decel slope (test 8.38 m/s2 code = 5760915496) Pred Exer Dur R1 9.48 (test code = 3981217156) Pred METS R1 (test 9.75 code = 2441734220) LA Vol MOD A4C (test 46.56 ml code = 5464459447) Velocity Ratio 0.80 m/s (V1/V2) (test code = 4689) EF (test code = 56 % 0803466023) E/A ratio (test code 0.85 = 6026635301) LVOT VTI (CM) (test 21.00 cm code = 2715001104) MOE (test code = MOE) Left Ventricle: [...] normal. Lab Interpretation Abnormal (test code = 78538-5) [facility], (w Contrast, Strain and 3D if needed)2022-05-10 21:23:23 Test Item Value Reference Interpretation Comments Range Ao Root Diameter 3.34 cm (test code = 9442508597) AoV Area, Vmax (test 3.02 cm2 >=1.5 code = 5076806932) AoV Area, VTI (test 3.07 cm2 code = 1884855236) AoV Mean PG (test 4.26 mmHg code = 8931980595) AoV Peak PG (test 6.38 mmHg code = 6769986603) AoV Vmax (test code 1.42 m/s = 3181966028) AoV VTI (test code = 0.26 m 9103480436) BSA Rashid (test code 2.11 m2 = 6424066106) BSA (test code = 2.02 m2 7973593276) IVS,d (test code = 0.84 cm 0.6-5 3452624432) IVS/LVPW,2D (test 0.98 code = 6382580271) Left Atrium 3.49 cm Dimension Anterior (test code = 9605868206) LV,d (test code = 4.74 cm 0580656132) LV EF,2D (test code 64.34 % = 7285494582) LV,s (test code = 3.36 cm 3955605389) LVOT area (test code 3.53 cm2 = 6849827340) LVOT Diam,S (test 2.12 cm code = 8312152596) LVOT Vmax (test code 1.13 m/s = 7856476807) LVOT VTI (test code 0.21 m = 9362323706) LVPWD,d (test code = 0.85 cm 0.60-1.19 6725513815) MV E A ratio (test 0.86 code = 2139582635) AoV area i VTI BSA 1.52 cm2/m2 >=0.85 [place] (test code = 6876227925) BMI (test code = 31.32 kg/m2 6148992556) E wave decelartion 89.56 See_Comment A [Automat ed time (test code = message] T he 4016703591) system which generated this result transmitted reference range : 200 msec. The reference range was not used to interpret this result as normal/abnormal . MV Peak A Sander (test 0.88 m/s code = 1368542401) MV valve area p 1/2 8.47 cm2 method (test code = 6823764432) MV Peak E Sander (test 0.75 m/s code = 0043738560) MV stenosis pressure 25.97 ms 1/2 time (test code = 5226061897) LVOT stroke volume 0.74 ml (test code = 2000184507) AV LVOT peak 4.69 mmHg gradient (test code = 7673575242) Ao Root Diameter 3.34 cm (test code = 4891922053) MV mean gradient 1.92 mmHg (test code = 0425380374) LV SYS VOL (test 46.16 ml 21-61 code = 6723838703) LV ANDESRON VOL (test 104.46 ml 62-150 code = 4207475410) LA area s A4C (test 17.60 cm2 code = 6395733102) LV SI Teich 2D (test 28.83 ml/m2 code = 3750842685) LV SV Teich 2D (test 58.30 ml code = 4840775643) LV Vol s Teich PSAX 46.16 ml (test code = 0466131377) LVOT CI (test code = 3.53 l/min/m2 6552269743) LVOT CO (test code = 7.14 l/min 8780947288) LVOT HR for LVOT CO 98.89 bpm (test code = 4438348893) LVOT SI (test code = 35.72 ml/m2 1481226873) MR peak grad (test 3.00 mmHg code = 2175073179) MV Vmax (test code = 0.87 m 1650307642) MV VTI Tips (test 0.14 m code = 9674950821) BSA [place] (test 2.10 m2 code = 8127076668) AoV Vmn (test code = 0.97 m/s 9035663242) IVS s 2D (test code 1.17 cm = 6637896226) LV FS Teich 2D (test 29.09 code = 7078866664) MV AE ratio (test 1.17 code = 9444743487) LV FS Cube 2D (test 29.09 code = 2348644003) LVOT Vmn (test code 0.75 = 2254592389) Pt Size (test code = 170.18 0060182072) Pt Wt (test code = 90.72 9278982583) Aov area Vmn (test 3.05 cm2 code = 0488597857) LVOT mean grad (test 2.57 mmHg code = 1791030623) 85 of MPHR (test 140.25 code = 3806290995) AoV area I VMN bsa 1.51 cm2/m2 (test code = 7472934136) Calc MPHR (test code 165.01 bpm = 0006893075) IVS pct thck PLAX 39.76 % (test code = 5018845283) LV SI Cube 2D (test 33.91 ml/m2 code = 5465062893) LV SV Cube 2D (test 68.57 ml code = 2434675576) LV vol d cube 2D 106.56 ml (test code = 7838177034) LV vol s cube 2D 38.00 ml (test code = 6798017384) LVPW pct thck PLAX 35.24 % (test code = 6119793051) LVPW s PLAX (test 1.16 cm code = 9455449498) MV Decel slope (test 8.38 m/s2 code = 0040700203) Pred Exer Dur R1 9.48 (test code = 4783936040) Pred METS R1 (test 9.75 code = 8738417651) LA Vol MOD A4C (test 46.56 ml code = 3697098879) Velocity Ratio 0.80 m/s (V1/V2) (test code = 4689) EF (test code = 56 % 6134545381) E/A ratio (test code 0.85 = 6046387893) LVOT VTI (CM) (test 21.00 cm code = 6928939255) MOE (test code = MOE) Left Ventricle: [...] normal. Lab Interpretation Abnormal (test code = 06025-7) [facility] OlhubzgsOLEP-BaN-7 (COVID-19) RNA [Presence] in Respiratory specimen by LEILANI with probe [id number] 00:11:33 Test Item Value Reference Range Interpretation Comments SARS-CoV-2 (COVID-19) RNA Not detected [Presence] in Respiratory specimen by LEILANI with probe detection (test code = 91838-7) Whether patient is employed in a Unknown healthcare setting (test code = 97258-2) Whether the patient has symptoms Unknown related to condition of interest (test code = 64183-0) Whether the patient was Unknown hospitalized for condition of interest (test code = 38767-7) Whether the patient was admitted Unknown to intensive care unit (ICU) for condition of interest (test code = 26667-6) Whether patient resides in a Unknown congregate care setting (test code = 22996-7) status (test code = Unknown 75345-8) Date and time of symptom onset Unknown (test code = 49625-5) [facility] ykgmdnrxfqodyvf7282-02-03 20:52:15 Test Item Value Reference Range Interpretation Comments BSA (test code = 2.03 m2 9009907608) BSA Rashid (test code 2.12 m2 = 5576656549) BSA [place] (test 2.11 m2 code = 2798915769) Pred METS R1 (test 9.76 code = 9680557065) Pred Exer Dur R1 9.48 (test code = 0961176226) Calc MPHR (test 165.06 bpm code = 5009461670) 85 of MPHR (test 140.30 code = 4483948572) Pt Wt (test code = 91.17 9778821628) Pt Size (test code 170.18 = 4037060449) BMI (test code = 31.48 kg/m2 5238933597) MOE (test code = MOE) Left Ventricle: [...] study. The probe was inserted by the supervisor home restoration service. There was no probe insertion difficulty. Anesthesia was given. Refer to anesthesia note. The patient tolerated the procedure well and recovered without any complications.Prior StudyThere were no significant changes noted when compared to the prior TTE study. [facility] ytawdaloiqcwerm9362-02-26 20:52:15 Test Item Value Reference Range Interpretation Comments BSA (test code = 2.03 m2 0492004366) BSA Rashid (test code 2.12 m2 = 3629605399) BSA [place] (test 2.11 m2 code = 0583202144) Pred METS R1 (test 9.76 code = 0598370771) Pred Exer Dur R1 9.48 (test code = 7865174502) Calc MPHR (test 165.06 bpm code = 0065669418) 85 of MPHR (test 140.30 code = 7896590879) Pt Wt (test code = 91.17 1194585007) Pt Size (test code 170.18 = 8068056654) BMI (test code = 31.48 kg/m2 6758041979) MOE (test code = MOE) Left Ventricle: [...] study. The probe was inserted by the supervisor home restoration service. There was no probe insertion difficulty. Anesthesia was given. Refer to anesthesia note. The patient tolerated the procedure well and recovered without any complications.Prior StudyThere were no significant changes noted when compared to the prior TTE study. [facility] myocardial fsecoltfy8393-37-47 21:20:55 Test Item Value Reference Range Interpretation Comments Target HR (test 166.00 bpm code = 2717051857) Resting HR (test 99 BPM code = 6351252547) Resting BP (test 112/70 mmHg code = 2240984157) O2 sat rest (test 99 % code = 6689176721) Post Peak HR (test 113 bpm code = 8372780636) Percent HR (test 68.07 % code = 9771654769) Post Peak BP (test 112/70 mmHg code = 2551861098) O2 sat peak (test 98 % code = 7479168523) Nuc Stress EF (test 63 % code = 7148708701) Radiology Study observation (narrative) (test code = 20532-6) MOE (test code = MOE) Conclusion: Abnormal [...] The resting administration time was at 10:07 MINE ENGINEER on 04/17/2022. Resting images obtained at 11:22 MINE ENGINEER. Images performed at stress after an injection of 30.5 mCi. The stress administration time was at 12:20 MINE ENGINEER on 04/17/2022. Stress images obtained at 13:36 MINE ENGINEER.Nuclear Study QualityA perfusion 1-day rest/stress protocol was [...] Scores: SDS Score: N/A Percentage Abnormal: N/A [facility] myocardial flerhhjco0836-67-14 21:20:55 Test Item Value Reference Range Interpretation Comments Target HR (test 166.00 bpm code = 0446540845) Resting HR (test 99 BPM code = 5374026986) Resting BP (test 112/70 mmHg code = 1366572866) O2 sat rest (test 99 % code = 8955150633) Post Peak HR (test 113 bpm code = 6709530290) Percent HR (test 68.07 % code = 4201499277) Post Peak BP (test 112/70 mmHg code = 4860336963) O2 sat peak (test 98 % code = 9497888533) Nuc Stress EF (test 63 % code = 6917204594) Radiology Study observation (narrative) (test code = 34757-3) MOE (test code = MOE) Conclusion: Abnormal [...] The resting administration time was at 10:07 MINE ENGINEER on 04/17/2022. Resting images obtained at 11:22 MINE ENGINEER. Images performed at stress after an injection of 30.5 mCi. The stress administration time was at 12:20 MINE ENGINEER on 04/17/2022. Stress images obtained at 13:36 MINE ENGINEER.Nuclear Study QualityA perfusion 1-day rest/stress protocol was [...] Scores: SDS Score: N/A Percentage Abnormal: N/A [facility] [id number] 21:15:16 Test Item Value Reference Range Interpretation Comments Resting HR (test code 99 = 0446473169) Resting BP (test code 112&70 = 2815125335) Peak MET Achieved 1.0 (test code = 8139200529) Protocol Name (test LEXISCAN code = 3081453883) Time in Exercise Phase 00:00:53 (test code = 8896086387) Max Systolic BP (test 112 code = 6916662888) Max Diastolic BP (test 70 code = 6661311544) Max Heart Rate (test 113 code = 6557092992) Max Predicted Heart 166 Rate (test code = 3526812097) Target HR Formula (220 - Age)*100% (test code = 6740878324) Test Indication (test code = 2966758712) Arrhy During Ex (test none code = 6066283072) ECG Interp Before EX atrial fibrillation (test code = 0589305550) ECG Interp During Ex NONSPECIFIC (test code = 2989944354) Ex Summary Comment Myoview to follow (test code = 5579512876) Chest Pain Statement none (test code = 0621216426) Overall HR Response to PHARMACOLOGIC STRESS Exercise (test code = 8575145646) Overall BP Response To normal resting BP - Exercise (test code = appropriate response 0538614826) Reason for Termination Protocol completed (test code = 0398068586) Stress Test Impression MYOVIEW TO (test code = FOLLOW--Electronically 8979435714) Signed By Jaspreet Cannon MD ([id number]) on 04/18/2022 3:15:13 PM [facility] [id number] 21:15:16 Test Item Value Reference Range Interpretation Comments Resting HR (test code 99 = 2191554528) Resting BP (test code 112&70 = 2809050852) Peak MET Achieved 1.0 (test code = 4335686426) Protocol Name (test LEXISCAN code = 7005507272) Time in Exercise Phase 00:00:53 (test code = 4091071329) Max Systolic BP (test 112 code = 9792851913) Max Diastolic BP (test 70 code = 3349298855) Max Heart Rate (test 113 code = 6993825449) Max Predicted Heart 166 Rate (test code = 5693858113) Target HR Formula (220 - Age)*100% (test code = 6834969492) Test Indication (test code = 0002957471) Arrhy During Ex (test none code = 3508700136) ECG Interp Before EX atrial fibrillation (test code = 2528054643) ECG Interp During Ex NONSPECIFIC (test code = 1722348397) Ex Summary Comment Myoview to follow (test code = 7882086262) Chest Pain Statement none (test code = 5070447627) Overall HR Response to PHARMACOLOGIC STRESS Exercise (test code = 9529500187) Overall BP Response To normal resting BP - Exercise (test code = appropriate response 5167280359) Reason for Termination Protocol completed (test code = 4931353821) Stress Test Impression MYOVIEW TO (test code = FOLLOW--Electronically 5658295322) Signed By Jaspreet Cannon MD ([id number]) on 04/18/2022 3:15:13 PM [facility], (w Contrast, Strain and 3D if needed)2022-04-14 21:07:42 Test Item Value Reference Interpretation Comments Range EF (test code = 59 % 52-72 8635593658) LV EF,BP (test code 57.09 % = 5681358670) IVS,d (test code = 1.13 cm 0.6-1 A 9087988834) IVS s 2D (test code 1.32 cm = 7654921143) LVPWD,d (test code 1.09 cm 0.60-1.19 = 8081933007) LVPW s PLAX (test 1.37 cm code = 2180202024) LV,s (test code = 3.04 cm 9046734033) LVOT Diam,S (test 2.09 cm code = 0777592280) LV ANDERSON VOL (test 88.75 ml 62-150 code = 8478769168) LV SYS VOL (test 36.02 ml 21-61 code = 0352980589) LV Vol,d A2C (test 82.11 mL code = 5752381325) LV Vol,s A2C (test 34.60 mL code = 4204277340) LV Vol,d A4C (test 81.73 ml code = 6576458387) LV Vol,s A4C (test 37.26 ml code = 6040612785) MV Peak E Sander (test 0.89 m/s code = 9636065659) MV Peak A Sander (test 0.25 m/s code = 4682209411) E/A ratio (test 3.56 <=0.8 A [Automated code = 9640513263) message] The system which generated this result transmitted reference range: <=0.8. The reference range was not used to interpret this result as normal/abnormal . E wave decelartion 177.02 See_Comment A [Automat ed time (test code = message] T he 5625974055) system which generated this result transmitted reference range: 200 msec. The reference range was not used to interpret this result as normal/abnormal . LV Systolic Volume 17.13 mL/m2 11-31 Index (test code = 6887135092) LV Diastolic Volume 40.65 mL/m2 34-74 Index (test code = 0945327600) LV,d (test code = 4.42 cm 7801498939) IVS/LVPW,2D (test 1.03 code = 6094681557) LV EF,2D (test code 67.66 % = 4424639518) LV FS Cube 2D (test 31.36 code = 3806436690) LV FS Teich 2D 31.36 (test code = 2351540300) LV SI Teich 2D 26.07 ml/m2 (test code = 3187232330) LV SV Teich 2D 52.72 ml (test code = 6598291951) LV Vol s Teich PSAX 36.02 ml (test code = 1542244971) LVOT stroke volume 0.48 cm3 (test code = 0775208186) Left Atrium 3.37 cm <=4 [Automated Dimension Anterior message] The (test code = system which 3857194955) generated this result transmitted reference range: <=4. The reference range was not used to interpret this result as normal/abnormal . LA Vol MOD A4C 44.03 ml (test code = 4338519071) LA area s A4C (test 16.42 cm2 code = 6281692042) LVOT area (test 3.43 cm2 code = 6032372496) LVOT Vmax (test 0.86 m/s code = 2388584040) AoV Mean PG (test 3.31 See_Comment [Automate d code = 8488486240) message] The system which generated this result transmitted reference range: 20 mmHg. The reference range was not used to interpret this result as normal/abnormal . AoV Peak PG (test 4.75 mmHg code = 8365252143) AV LVOT peak 2.89 mmHg gradient (test code = 1198851608) AoV area i VTI BSA 1.33 cm2/m2 >=0.85 [Automat ed [place] (test code = message] The 4634440442) system which generated this result transmitted reference range: >=0.85. The reference range was not used to interpret this result as normal/abnormal . AoV Area, Vmax 2.67 cm2 >=1.5 [Automated (test code = message] The 0592470316) system which generated this result transmitted reference range: >=1.5. The reference range was not used to interpret this result as normal/abnormal . LVOT VTI (CM) (test 14.00 cm code = 1343232107) AoV Vmax (test code 1.11 m/s = 6979848981) AoV Vmn (test code 0.88 m/s = 9866859898) AoV Area, VTI (test 2.69 cm2 code = 9563224776) LVOT CO (test code 5.03 l/min = 2516888900) LVOT CI (test code 2.49 l/min/m2 = 1252301398) LVOT HR for LVOT CO 113.01 bpm (test code = 6245036992) LVOT SI (test code 22.01 ml/m2 = 2037102244) Velocity Ratio 0.77 m/s (V1/V2) (test code = 4689) MV stenosis 41.13 ms <=150 [Automated pressure 1/2 time message] T he (test code = system which 1868073820) generated this result transmitted reference range: <=150. The reference range was not used to interpret this result as normal/abnormal . MV E A ratio (test 6.25 code = 9421018499) MV valve area p 1/2 5.35 cm2 method (test code = 2001777450) E prime lat (test 0.04 code = 6317663306) E prime sept (test 0.03 code = 9338950111) RVOT Vmax (test 0.87 m/s code = 4153457129) PV Pk Grad (test 2.43 See_Comment [Automated code = 8629029406) message] The system which generated this result transmitted reference range: 36 mmHg. The reference range was not used to interpret this result as normal/abnormal . RVOT pk grad (test 3.02 mmHg code = 8047161357) PV VMAX (test code 0.78 m/s <=3 [Automat ed = 7287815162) message] The system which generated this result transmitted reference range: <=3. The reference range was not used to interpret this result as normal/abnormal . Ao Root Diameter 2.77 cm <=3.99 [Automated (test code = message] The 3256325640) system which generated this result transmitted reference range: <=3.99. The reference range was not used to interpret this result as normal/abnormal . Ao Root Diameter 2.77 cm (test code = 1114224984) Ascending aorta 2.95 cm (test code = 7015398226) BSA (test code = 2.02 m2 6354135586) BSA Rashid (test code 2.11 m2 = 2720620023) BSA Haycock (test 2.10 m2 code = 6527902097) Pred METS R1 (test 9.76 code = 1944152094) Pred Exer Dur R1 9.49 (test code = 2254116516) MV Decel slope 5.02 m/s2 (test code = 8692630307) LVPW pct thck PLAX 25.29 % (test code = 4516061206) LV vol s cube 2D 27.97 ml (test code = 9251865876) LV vol d cube 2D 86.49 ml (test code = 3406644533) LV SV Cube 2D (test 58.52 ml code = 7025867195) LV SI Cube 2D (test 28.94 ml/m2 code = 2950332403) IVS pct thck PLAX 16.96 % (test code = 9067683964) Calc MPHR (test 165.08 bpm code = 2083997871) AoV area I VMN bsa 1.20 cm2/m2 (test code = 6619036957) 85 of MPHR (test 140.32 code = 8794686930) RVOT VTI (test code 0.14 m = 4718820747) RVOT Vmn (test code 0.59 m/s = 7808058831) RVOT mean grad 1.54 mmHg (test code = 5999405614) LVOT mean grad 1.67 mmHg (test code = 0311801307) Aov area Vmn (test 2.42 cm2 code = 3765525536) Pt Wt (test code = 90.72 4996422860) Pt Size (test code 170.18 = 7354889319) MV AE ratio (test 0.16 code = 4546692420) LVOT Vmn (test code 0.61 = 4018061088) PV Vmn (test code = 17.84 m/s 9530990605) LV Vol Index s 41.57 ml/m2 bpmod BSA [place] (test code = 8258999284) LV SI MOD BP BSA 23.73 ml/m2 [place] (test code = 6766183812) BMI (test code = 31.32 kg/m2 7245550861) LV Vol,s BP (test 36.07 nl code = 3184438128) LV Vol,d BP (test 84.05 ml code = 3647939171) LV SV,BP (test code 47.99 % = 8401776288) LV SV,A4C (test 44.47 % code = 8451565584) LV SV,A2C (test 47.51 % code = 4584164776) [place]ordo [place],s A4C 6.78 cm (test code = 3415375502) Gordo [place],s A2C 6.94 cm (test code = 1502579039) G[place],d A4C 7.48 cm (test code = 2458211734) [place],d A2C 7.91 cm (test code = 2840722050) LV EF,A4C (test 54.41 % code = 5631183664) LV EF,A2C (test 57.86 % code = 6850111159) AoV VTI (test code 0.16 m = 5819611129) LVOT VTI (test code 0.14 m = 5327018236) MOE (test code = MOE) Left Ventricle: [...] status. Lab Interpretation Abnormal (test code = 75493-6) [facility], (w Contrast, Strain and 3D if needed)2022-04-14 21:07:42 Test Item Value Reference Interpretation Comments Range EF (test code = 59 % 52-72 6598848623) LV EF,BP (test code 57.09 % = 4445872286) IVS,d (test code = 1.13 cm 0.6-1 A 6842968221) IVS s 2D (test code 1.32 cm = 2497715859) LVPWD,d (test code 1.09 cm 0.60-1.19 = 5462242850) LVPW s PLAX (test 1.37 cm code = 7628535582) LV,s (test code = 3.04 cm 8589356104) LVOT Diam,S (test 2.09 cm code = 5168205568) LV ANDERSON VOL (test 88.75 ml 62-150 code = 7864053737) LV SYS VOL (test 36.02 ml 21-61 code = 8119610021) LV Vol,d A2C (test 82.11 mL code = 5126291926) LV Vol,s A2C (test 34.60 mL code = 2142509409) LV Vol,d A4C (test 81.73 ml code = 1011486452) LV Vol,s A4C (test 37.26 ml code = 1401838999) MV Peak E Sander (test 0.89 m/s code = 1746205930) MV Peak A Sander (test 0.25 m/s code = 1336524022) E/A ratio (test 3.56 <=0.8 A code = 5038404392) E wave decelartion 177.02 See_Comment A [Automat ed time (test code = message] T he 1546645487) system which generated this result transmitted reference range: 200 msec. The reference range was not used to interpret this result as normal/abnormal . LV Systolic Volume 17.13 mL/m2 11-31 Index (test code = 2604946330) LV Diastolic Volume 40.65 mL/m2 34-74 Index (test code = 4485893725) LV,d (test code = 4.42 cm 1195316406) IVS/LVPW,2D (test 1.03 code = 2467115751) LV EF,2D (test code 67.66 % = 3649936271) LV FS Cube 2D (test 31.36 code = 9784284233) LV FS Teich 2D 31.36 (test code = 2781894481) LV SI Teich 2D 26.07 ml/m2 (test code = 2360536297) LV SV Teich 2D 52.72 ml (test code = 9803331717) LV Vol s Teich PSAX 36.02 ml (test code = 0957173938) LVOT stroke volume 0.48 cm3 (test code = 2900150602) Left Atrium 3.37 cm <=4 Dimension Anterior (test code = 9098480142) LA Vol MOD A4C 44.03 ml (test code = 6431322303) LA area s A4C (test 16.42 cm2 code = 2768898993) LVOT area (test 3.43 cm2 code = 5975399403) LVOT Vmax (test 0.86 m/s code = 2942022893) AoV Mean PG (test 3.31 See_Comment [Automate d code = 6570292850) message] The system which generated this result transmitted reference range: 20 mmHg. The reference range was not used to interpret this result as normal/abnormal . AoV Peak PG (test 4.75 mmHg code = 4180229647) AV LVOT peak 2.89 mmHg gradient (test code = 3959208294) AoV area i VTI BSA 1.33 cm2/m2 >=0.85 [place] (test code = 6732359449) AoV Area, Vmax 2.67 cm2 >=1.5 (test code = 2842633510) LVOT VTI (CM) (test 14.00 cm code = 8088935521) AoV Vmax (test code 1.11 m/s = 0142525902) AoV Vmn (test code 0.88 m/s = 0775635298) AoV Area, VTI (test 2.69 cm2 code = 2655082141) LVOT CO (test code 5.03 l/min = 9371841535) LVOT CI (test code 2.49 l/min/m2 = 2227935134) LVOT HR for LVOT CO 113.01 bpm (test code = 9569740576) LVOT SI (test code 22.01 ml/m2 = 1064557987) Velocity Ratio 0.77 m/s (V1/V2) (test code = 4689) MV stenosis 41.13 ms <=150 pressure 1/2 time (test code = 8944537027) MV E A ratio (test 6.25 code = 9459587620) MV valve area p 1/2 5.35 cm2 method (test code = 8873040407) E prime lat (test 0.04 code = 7945068872) E prime sept (test 0.03 code = 3140896178) RVOT Vmax (test 0.87 m/s code = 8743738544) PV Pk Grad (test 2.43 See_Comment [Automated code = 0768631774) message] The system which generated this result transmitted reference range: 36 mmHg. The reference range was not used to interpret this result as normal/abnormal . RVOT pk grad (test 3.02 mmHg code = 0573252389) PV VMAX (test code 0.78 m/s <=3 = 9195301696) Ao Root Diameter 2.77 cm <=3.99 (test code = 8648601215) Ao Root Diameter 2.77 cm (test code = 8442091163) Ascending aorta 2.95 cm (test code = 5181454682) BSA (test code = 2.02 m2 5898098205) BSA Rashid (test code 2.11 m2 = 6934079270) BSA [place] (test 2.10 m2 code = 7059917043) Pred METS R1 (test 9.76 code = 0712707064) Pred Exer Dur R1 9.49 (test code = 4964440181) MV Decel slope 5.02 m/s2 (test code = 1787643916) LVPW pct thck PLAX 25.29 % (test code = 2757059931) LV vol s cube 2D 27.97 ml (test code = 8676493249) LV vol d cube 2D 86.49 ml (test code = 2161261797) LV SV Cube 2D (test 58.52 ml code = 7546792276) LV SI Cube 2D (test 28.94 ml/m2 code = 1581930128) IVS pct thck PLAX 16.96 % (test code = 3622973452) Calc MPHR (test 165.08 bpm code = 3834490622) AoV area I VMN bsa 1.20 cm2/m2 (test code = 1324014054) 85 of MPHR (test 140.32 code = 9038050037) RVOT VTI (test code 0.14 m = 0172416098) RVOT Vmn (test code 0.59 m/s = 7934338707) RVOT mean grad 1.54 mmHg (test code = 3656498019) LVOT mean grad 1.67 mmHg (test code = 3364303301) Aov area Vmn (test 2.42 cm2 code = 3801088090) Pt Wt (test code = 90.72 3668012544) Pt Size (test code 170.18 = 4099779692) MV AE ratio (test 0.16 code = 8712389096) LVOT Vmn (test code 0.61 = 0576492373) PV Vmn (test code = 17.84 m/s 5548585156) LV Vol Index s 41.57 ml/m2 bpmod BSA [place] (test code = 1857099899) LV SI MOD BP BSA 23.73 ml/m2 [place] (test code = 6833815813) BMI (test code = 31.32 kg/m2 8143620246) LV Vol,s BP (test 36.07 nl code = 5497603012) LV Vol,d BP (test 84.05 ml code = 8009385545) LV SV,BP (test code 47.99 % = 4239578005) LV SV,A4C (test 44.47 % code = 5830454642) LV SV,A2C (test 47.51 % code = 8010590721) [place]ordo [place],s A4C 6.78 cm (test code = 0467997974) Gordo [place],s A2C 6.94 cm (test code = 3662393185) G[place],d A4C 7.48 cm (test code = 8879536389) [place],d A2C 7.91 cm (test code = 2820243555) LV EF,A4C (test 54.41 % code = 8004246422) LV EF,A2C (test 57.86 % code = 2939766291) AoV VTI (test code 0.16 m = 8726425376) LVOT VTI (test code 0.14 m = 6782137813) MOE (test code = MOE) Left Ventricle: [...] status. Lab Interpretation Abnormal (test code = 18328-2) [facility] IhnajsonEPII-FcL-6 (COVID-19) RNA [Presence] in Respiratory specimen by LEILANI with probe [id number] 05:21:05 Test Item Value Reference Range Interpretation Comments SARS-CoV-2 (COVID-19) RNA Not detected [Presence] in Respiratory specimen by LEILANI with probe detection (test code = 81143-6) Whether patient is employed in a Unknown healthcare setting (test code = 29139-0) Whether the patient has symptoms Unknown related to condition of interest (test code = 15926-9) Whether the patient was Unknown hospitalized for condition of interest (test code = 90816-7) Whether the patient was admitted Unknown to intensive care unit (ICU) for condition of interest (test code = 69528-6) Whether patient resides in a Unknown congregate care setting (test code = 56032-8) status (test code = Unknown 50773-7) Date and time of symptom onset Unknown (test code = 66992-1) [facility] Preliminary Interpretation - Not an [id number] 21:56:45 Test Item Value Reference Range Interpretation Comments MOE (test code = MOE) Fortino Lozano MD 04/12/2022 9:18 [facility] ED Preliminary Interpretation - Not an OrderPerformed by: Fortino Lozano MDAuthorized by: Fortino Lozano MD ECG reviewed by ED Physician in the absence of a supervisor home restoration service: yes Interpretation: Interpretation: abnormal Rate: ECG rate: 116 ECG rate assessment: tachycardic Rhythm: Rhythm: sinus tachycardia Ectopy: Ectopy: none QRS: QRS axis: Left QRS intervals: NormalConduction: Conduction: abnormal Abnormal conduction: complete RBBB ST segments: ST segments: NormalT waves: T waves: normal Comments: Similar to 10/10 Lab Interpretation Abnormal (test code = 91558-2) [facility] ED Preliminary Interpretation - Not an [id number] 21:56:45 Test Item Value Reference Range Interpretation Comments MOE (test code = MOE) Fortino Lozano MD 04/12/2022 9:18 [facility] ED Preliminary Interpretation - Not an OrderPerformed by: Fortino Lozano MDAuthorized by: Fortino Lozano MD ECG reviewed by ED Physician in the absence of a supervisor home restoration service: yes Interpretation: Interpretation: abnormal Rate: ECG rate: 116 ECG rate assessment: tachycardic Rhythm: Rhythm: sinus tachycardia Ectopy: Ectopy: none QRS: QRS axis: Left QRS intervals: NormalConduction: Conduction: abnormal Abnormal conduction: complete RBBB ST segments: ST segments: NormalT waves: T waves: normal Comments: Similar to 10/10 Lab Interpretation Abnormal (test code = 79505-1) [facility] ED Preliminary Interpretation - Not an [id number] 21:56:45 Test Item Value Reference Range Interpretation Comments MOE (test code = MOE) Fortino Lozano MD 04/12/2022 9:18 [facility] Preliminary Interpretation - Not an OrderPerformed by: Fortino Lozano MDAuthorized by: Fortino Lozano MD ECG reviewed by ED Physician in the absence of a supervisor home restoration service: yes Interpretation: Interpretation: abnormal Rate: ECG rate: 116 ECG rate assessment: tachycardic Rhythm: Rhythm: sinus tachycardia Ectopy: Ectopy: none QRS: QRS axis: Left QRS intervals: NormalConduction: Conduction: abnormal Abnormal conduction: complete RBBB ST segments: ST segments: NormalT waves: T waves: normal Comments: Similar to 10/10 Lab Interpretation Abnormal (test code = 36198-6) [facility] Preliminary Interpretation - Not an [id number] 21:56:45 Test Item Value Reference Range Interpretation Comments MOE (test code = MOE) Fortino Lozano MD 04/12/2022 9:18 [facility] Preliminary Interpretation - Not an OrderPerformed by: Fortino Lozano MDAuthorized by: Fortino Lozano MD ECG reviewed by ED Physician in the absence of a supervisor home restoration service: yes Interpretation: Interpretation: abnormal Rate: ECG rate: 116 ECG rate assessment: tachycardic Rhythm: Rhythm: sinus tachycardia Ectopy: Ectopy: none QRS: QRS axis: Left QRS intervals: NormalConduction: Conduction: abnormal Abnormal conduction: complete RBBB ST segments: ST segments: NormalT waves: T waves: normal Comments: Similar to 10/10 Lab Interpretation Abnormal (test code = 43482-3) [facility] Preliminary Interpretation - Not an [id number] 21:56:45 Test Item Value Reference Range Interpretation Comments MOE (test code = MOE) Fortino Lozano MD 04/12/2022 9:18 [facility] Preliminary Interpretation - Not an OrderPerformed by: Fortino Lozano MDAuthorized by: Fortino Lozano MD ECG reviewed by ED Physician in the absence of a supervisor home restoration service: yes Interpretation: Interpretation: abnormal Rate: ECG rate: 116 ECG rate assessment: tachycardic Rhythm: Rhythm: sinus tachycardia Ectopy: Ectopy: none QRS: QRS axis: Left QRS intervals: NormalConduction: Conduction: abnormal Abnormal conduction: complete RBBB ST segments: ST segments: NormalT waves: T waves: normal Comments: Similar to 10/10 Lab Interpretation Abnormal (test code = 43329-1) [facility] - Not an [id number] 21:56:45 Test Item Value Reference Range Interpretation Comments MOE (test code = MOE) Fortino Lozano MD 04/12/2022 9:18 [facility] ED Preliminary Interpretation - Not an OrderPerformed by: Fortino Lozano MDAuthorized by: Fortino Lozano MD ECG reviewed by ED Physician in the absence of a supervisor home restoration service: yes Interpretation: Interpretation: abnormal Rate: ECG rate: 116 ECG rate assessment: tachycardic Rhythm: Rhythm: sinus tachycardia Ectopy: Ectopy: none QRS: QRS axis: Left QRS intervals: NormalConduction: Conduction: abnormal Abnormal conduction: complete RBBB ST segments: ST segments: NormalT waves: T waves: normal Comments: Similar to 10/10 Lab Interpretation Abnormal (test code = 00799-8) [facility] ED Preliminary Interpretation - Not an [id number] 21:56:45 Test Item Value Reference Range Interpretation Comments MOE (test code = MOE) Fortino Lozano MD 04/12/2022 9:18 [facility] ED Preliminary Interpretation - Not an OrderPerformed by: Fortino Lozano MDAuthorized by: Fortino Lozano MD ECG reviewed by ED Physician in the absence of a supervisor home restoration service: yes Interpretation: Interpretation: abnormal Rate: ECG rate: 116 ECG rate assessment: tachycardic Rhythm: Rhythm: sinus tachycardia Ectopy: Ectopy: none QRS: QRS axis: Left QRS intervals: NormalConduction: Conduction: abnormal Abnormal conduction: complete RBBB ST segments: ST segments: NormalT waves: T waves: normal Comments: Similar to 10/10 Lab Interpretation Abnormal (test code = 62816-4) [facility] Interpretation - Not an [id number] 21:56:45 Test Item Value Reference Range Interpretation Comments MOE (test code = MOE) Fortino Lozano MD 04/12/2022 9:18 [facility] Preliminary Interpretation - Not an OrderPerformed by: Fortino Lozano MDAuthorized by: Fortino Lozano MD ECG reviewed by ED Physician in the absence of a supervisor home restoration service: yes Interpretation: Interpretation: abnormal Rate: ECG rate: 116 ECG rate assessment: tachycardic Rhythm: Rhythm: sinus tachycardia Ectopy: Ectopy: none QRS: QRS axis: Left QRS intervals: NormalConduction: Conduction: abnormal Abnormal conduction: complete RBBB ST segments: ST segments: NormalT waves: T waves: normal Comments: Similar to 10/10 Lab Interpretation Abnormal (test code = 87496-5) [facility] ED Preliminary Interpretation - Not an [id number] 21:56:45 Test Item Value Reference Range Interpretation Comments MOE (test code = MOE) Fortino Lozano MD 04/12/2022 9:18 [facility] Preliminary Interpretation - Not an OrderPerformed by: Fortino Lozano MDAuthorized by: Fortino Lozano MD ECG reviewed by ED Physician in the absence of a supervisor home restoration service: yes Interpretation: Interpretation: abnormal Rate: ECG rate: 116 ECG rate assessment: tachycardic Rhythm: Rhythm: sinus tachycardia Ectopy: Ectopy: none QRS: QRS axis: Left QRS intervals: NormalConduction: Conduction: abnormal Abnormal conduction: complete RBBB ST segments: ST segments: NormalT waves: T waves: normal Comments: Similar to 10/10 Lab Interpretation Abnormal (test code = 93068-6) [facility] ED Preliminary Interpretation - Not an [id number] 21:56:45 Test Item Value Reference Range Interpretation Comments MOE (test code = MOE) Fortino Lozano MD 04/12/2022 9:18 [facility] ED Preliminary Interpretation - Not an OrderPerformed by: Fortino Lozano MDAuthorized by: Fortino Lozano MD ECG reviewed by ED Physician in the absence of a supervisor home restoration service: yes Interpretation: Interpretation: abnormal Rate: ECG rate: 116 ECG rate assessment: tachycardic Rhythm: Rhythm: sinus tachycardia Ectopy: Ectopy: none QRS: QRS axis: Left QRS intervals: NormalConduction: Conduction: abnormal Abnormal conduction: complete RBBB ST segments: ST segments: NormalT waves: T waves: normal Comments: Similar to 10/10 Lab Interpretation Abnormal (test code = 67472-1) [facility] ED Preliminary Interpretation - Not an [id number] 21:56:45 Test Item Value Reference Range Interpretation Comments MOE (test code = MOE) Fortino Lozano MD 04/12/2022 9:18 [facility] ED Preliminary Interpretation - Not an OrderPerformed by: Fortino Lozano MDAuthorized by: Fortino Lozano MD ECG reviewed by ED Physician in the absence of a supervisor home restoration service: yes Interpretation: Interpretation: abnormal Rate: ECG rate: 116 ECG rate assessment: tachycardic Rhythm: Rhythm: sinus tachycardia Ectopy: Ectopy: none QRS: QRS axis: Left QRS intervals: NormalConduction: Conduction: abnormal Abnormal conduction: complete RBBB ST segments: ST segments: NormalT waves: T waves: normal Comments: Similar to 10/10 Lab Interpretation Abnormal (test code = 32814-8) [facility] ED Preliminary Interpretation - Not an [id number] 21:56:45 Test Item Value Reference Range Interpretation Comments MOE (test code = MOE) Fortino Lozano MD 04/12/2022 9:18 [facility] ED Preliminary Interpretation - Not an OrderPerformed by: Fortino Lozano MDAuthorized by: Fortino Lozano MD ECG reviewed by ED Physician in the absence of a supervisor home restoration service: yes Interpretation: Interpretation: abnormal Rate: ECG rate: 116 ECG rate assessment: tachycardic Rhythm: Rhythm: sinus tachycardia Ectopy: Ectopy: none QRS: QRS axis: Left QRS intervals: NormalConduction: Conduction: abnormal Abnormal conduction: complete RBBB ST segments: ST segments: NormalT waves: T waves: normal Comments: Similar to 10/10 Lab Interpretation Abnormal (test code = 31522-1) [facility] [Presence] in Respiratory specimen by LEILANI with probe [id number] 10:09:09 Test Item Value Reference Range Interpretation Comments SARS-CoV-2 (COVID-19) RNA Not detected [Presence] in Respiratory specimen by LEILANI with probe detection (test code = 10844-6) Whether patient is employed in a Unknown healthcare setting (test code = 10999-4) Whether the patient has symptoms Unknown related to condition of interest (test code = 17774-4) Whether the patient was Unknown hospitalized for condition of interest (test code = 07258-7) Whether the patient was admitted Unknown to intensive care unit (ICU) for condition of interest (test code = 37063-9) Whether patient resides in a Unknown congregate care setting (test code = 11602-8) status (test code = Unknown 49959-0) Date and time of symptom onset Unknown (test code = 15441-7) [facility] Test Item Value Reference Range Interpretation Comments GLUBED (test code = 170 mg/dL 74-106 H Performe d by certified GLUBED) hydrotel operator at [facility] [id number] 21:00:00 Test Item Value Reference Range Interpretation Comments GLUBED (test code = 185 mg/dL 74-106 H Performe d by certified GLUBED) hydrotel operator at [facility] [id number] 15:40:00 Test Item Value Reference Range Interpretation Comments GLUBED (test code = 167 mg/dL 74-106 H Performe d by certified GLUBED) hydrotel operator at [facility] [id number] 11:13:00 Test Item Value Reference Range Interpretation Comments GLUBED (test code = 212 mg/dL 74-106 H Performe d by certified GLUBED) hydrotel operator at [facility] [id number] 08:09:00 Test Item Value Reference Range Interpretation Comments GLUBED (test code = 91 mg/dL 74-106 N Performe d by certified GLUBED) hydrotel operator at [facility] [id number] 20:51:00 Test Item Value Reference Range Interpretation Comments GLUBED (test code = 155 mg/dL 74-106 H Performe d by certified GLUBED) hydrotel operator at [facility] [id number] 15:53:00 Test Item Value Reference Range Interpretation Comments GLUBED (test code = 130 mg/dL 74-106 H Performe d by certified GLUBED) hydrotel operator at [facility] [id number] 11:15:00 Test Item Value Reference Range Interpretation Comments GLUBED (test code = 195 mg/dL 74-106 H Performe d by certified GLUBED) hydrotel operator at [facility] [id number] 07:48:00 Test Item Value Reference Range Interpretation Comments GLUBED (test code = 142 mg/dL 74-106 H Performe d by certified GLUBED) hydrotel operator at [facility] BASIC METABOLIC [id number] 07:09:00 Test Item Value Reference Range Interpretation [...] >3 months. [Automated mess age] The system [employer] generated this result transmitted ref erence range: >=60. Th e reference range was not used to int erpret this result as normal/abnormal . CREATININE (test 0.80 mg/dL 0.7-1.3 N code = CREAT) BUN/CREATININE RATIO 7.6 10-20 L (test code = BUN/CREA) CALCIUM (test code = 8.6 mg/dL 8.5-10.1 N CA) CBC W/AUTO [id number] 06:52:00 Test Item Value Reference Range Interpretation [...] DIFF REQUIRED (test code NO = MDIFF) [id number] 20:15:00 Test Item Value Reference Range Interpretation Comments GLUBED (test code = 227 mg/dL 74-106 H Performe d by certified GLUBED) hydrotel operator at [facility] [id number] 15:49:00 Test Item Value Reference Range Interpretation Comments GLUBED (test code = 191 mg/dL 74-106 H Performe d by certified GLUBED) hydrotel operator at [facility] [id number] 10:43:00 Test Item Value Reference Range Interpretation Comments GLUBED (test code = 362 mg/dL 74-106 H Performe d by certified GLUBED) hydrotel operator at [facility] [id number] 08:01:00 Test Item Value Reference Range Interpretation Comments GLUBED (test code = 203 mg/dL 74-106 H Performe d by certified GLUBED) hydrotel operator at [facility] BASIC METABOLIC [id number] 02:21:00 Test Item Value Reference Range Interpretation [...] >3 months. [Automated mess age] The system [employer] generated this result transmitted ref erence range: >=60. Th e reference range was not used to int erpret this result as normal/abnormal . CREATININE (test 0.70 mg/dL 0.7-1.3 N code = CREAT) BUN/CREATININE RATIO 11.6 10-20 N (test code = BUN/CREA) CALCIUM (test code = 8.2 mg/dL 8.5-10.1 L CA) CBC W/AUTO [id number] 02:17:00 Test Item Value Reference Range Interpretation [...] = 0.00 K/mm3 0.0-0.1 N NRBC#) VANCOMYCIN [id number] 22:07:00 Test Item Value Reference Range Interpretation Comments VANCOMYCIN TROUGH (test code = 10.5 ug/mL 10-20 N VANCT) [id number] 20:15:00 Test Item Value Reference Range Interpretation Comments GLUBED (test code = 185 mg/dL 74-106 H Performe d by certified GLUBED) hydrotel operator at [facility] [id number] 16:48:00 Test Item Value Reference Range Interpretation Comments GLUBED (test code = 280 mg/dL 74-106 H Performe d by certified GLUBED) hydrotel operator at [facility] [id number] 13:00:00 Test Item Value Reference Range Interpretation Comments GLUBED (test code = 226 mg/dL 74-106 H Performe d by certified GLUBED) hydrotel operator at [facility] [id number] 11:29:00 Test Item Value Reference Range Interpretation Comments GLUBED (test code = 246 mg/dL 74-106 H Performe d by certified GLUBED) hydrotel operator at [facility] [id number] 10:34:00 Test Item Value Reference Range Interpretation Comments GLUBED (test code = 227 mg/dL 74-106 H Performe d by certified GLUBED) hydrotel operator at [facility] [id number] 10:34:00 Test Item Value Reference Range Interpretation Comments GLUBED (test code = 256 mg/dL 74-106 H Performe d by certified GLUBED) hydrotel operator at [facility] [id number] 10:34:00 Test Item Value Reference Range Interpretation Comments GLUBED (test code = 213 mg/dL 74-106 H Performe d by certified GLUBED) hydrotel operator at [facility] [id number] 03:23:00 Test Item Value Reference Range Interpretation [...] is a direct measurement.=== ====== BASIC METABOLIC [id number] 18:01:00 Test Item Value Reference Range Interpretation [...] >3 months. [Automated mess age] The system [employer] generated this result transmitted ref erence range: >=60. Th e reference range was not used to int erpret this result as normal/abnormal . CREATININE (test 0.80 mg/dL 0.7-1.3 N code = CREAT) BUN/CREATININE RATIO 14.1 10-20 N (test code = BUN/CREA) CALCIUM (test code = 8.3 mg/dL 8.5-10.1 L CA) [id number] 18:01:00 Test Item Value Reference Range Interpretation Comments PHOSPHORUS (test code = PHOS) 2.8 mg/dL 2.5-4.9 N [id number] 18:01:00 Test Item Value Reference Range Interpretation Comments MAGNESIUM (test code = MAG) 1.7 mg/dL 1.8-2.4 L THYROID STIMULATING [id number] 18:01:00 Test Item Value Reference Range Interpretation Comments THYROID STIMULATING 0.667 uIU/mL 0.36-3.74 N TSH REFE RENCE HORMONE (test code = RANGES: EUTHYROID: TSH) 0.35 - 4.3 mIU/ mL HYPO : > 5.5 mI U/mL HYPER : < 0.35 mIU/mL CBC W/AUTO [id number] 18:00:00 Test Item Value Reference Range Interpretation [...] = 0.00 K/mm3 0.0-0.1 N NRBC#) LACTIC [id number] 14:22:00 Test Item Value Reference Range Interpretation Comments LACTIC ACID (test code = LACT) 1.3 mmol/L 0.4-1.9 N - XR TIBIA/FIBULA 2 V [id number] 12:37:00 [facility])Name: HARJINDER COLUNGA : 1965 Sex: M FAX: Jerry Roa MD [phone] [place]: [address]: REG Name: HARJINDER COLUNGA [facility] : 1965 Age/S: 56/M [facility] [id number] Loc: [place] [address] Phys: Jerry Roa MD Acct: [id number] Dis Date: Status: REG ER PHONE #: [phone] Exam Date: 12/31/2021 1226 FAX #: [phone] Reason: leg redness EXAMS: CPT CODE: [id number] XR TIBIA/FIBULA 2 [place] [address] REASON FOR EXAM: leg redness EXAM ORDER [...] Correlate with physical exam. [facility] ElectronicallySigned by Magan Rae MD on 12/31/2021 at 1237 Reported and signed by: Magan Rae MD CC: Jerry Roa MD Technologist: FORTINO SOSA, RT(R) Trnscrd Date/Time/By: 12/31/2021 (7959) : By: [email or web address] Orig Print D/T: S: 12/31/2021 (1248) PAGE 1 Signed Report- XR KNEE 3 V [id number] 12:37:00 [facility])Name: HARJINDER COLUNGA : 1965 Sex: M FAX: Jerry Roa MD [phone] [place]: [address] St: REG Name: HARJINDER COLUNGA [facility] : 1965 Age/S: 56/M [address] [place] [address] Unit #: [id number] Loc: [place] [address] Phys: Jerry Roa MD Acct: [id number] Dis Date: Status: REG ER PHONE #: [phone] Exam Date: 12/31/2021 1226 FAX #: [phone] Reason: leg redness EXAMS: CPT CODE: [id number] XR KNEE 3 V LT [address]31 REASON FOR EXAM: leg redness EXAM ORDER [...] Correlate with physical exam. Location: [facility] at 1237 Reported and signed by: Magan Rae MD CC: Jerry Roa MD Technologist: FORTINO SOSA RT(R) Trnscrd Date/Time/By: 12/31/2021 (5422) : By: [email or web address] [facility] Print D/T: S: 12/31/2021 (9334) PAGE 1 Signed ReportBASIC METABOLIC [id number] 12:10:00 Test Item Value Reference Range Interpretation [...] >3 months. [Automated mess age] The system [employer] generated this result transmitted ref erence range: >=60. Th e reference range was not used to int erpret this result as normal/abnormal . CREATININE (test code 1.00 mg/dL 0.7-1.3 N = CREAT) BUN/CREATININE RATIO 10.8 10-20 N (test code = BUN/CREA) CALCIUM (test code = 8.8 mg/dL 8.5-10.1 N CA) HEPATIC FUNCTION [id number] 12:10:00 Test Item Value Reference Range Interpretation [...] due ALKP) to change in reagent. LACTIC [id number] 12:08:00 Test Item Value Reference Range Interpretation Comments LACTIC ACID (test 2.1 mmol/L 0.4-1.9 HH Results ca lled to code = LACT) [id number] by 2IRD 4988 12/31/21 1208Cr itical results verifie d and read back by Darlyn rse? Y FOR ALL ICU PATIENT EXCLUDING HOLD PLEASE CALL [phone] CBC W/AUTO [id number] 11:58:00 Test Item Value Reference Range Interpretation [...] = 0.00 K/mm3 0.0-0.1 N NRBC#) POC [id number] 16:17:00 Test Item Value Reference Range Interpretation Comments POC glucose (test code 238 mg/dL 65-100 H Opera tor [facility] 195[facility] FrancoDevice ID : [id number] Lab Interpretation Abnormal (test code = 47850-9) [facility] [place] [facility] [id number] 16:17:00 Test Item Value Reference Range Interpretation Comments POC glucose (test code 238 mg/dL 65-100 H Opera tor [facility] = 36358-1) FrancoDevice ID : [id number] Lab Interpretation Abnormal (test code = 79131-5) [facility] [place]2022-08-24 11:12:00 Test Item Value Reference Range Interpretation Comments Urine culture Mixed yadi Specimen isolate (test <=10-3 col/cc InformationSp ecimen code = 11668-1) Source: [facility] Site: [facility]2022-08-24 11:12:00 Test Item Value Reference Range Interpretation Comments Urine culture Mixed yadi Specimen isolate (test <=10-3 col/cc InformationSp ecimen code = 47810-6) Source: [facility] Site: [facility]2022-08-24 11:12:00 Test Item Value Reference Range Interpretation Comments Urine culture Mixed yadi Specimen isolate (test <=10-3 col/cc InformationSp ecimen code = 83565-1) Source: [facility] Site: [facility]2022-08-24 11:12:00 Test Item Value Reference Range Interpretation Comments Urine culture Mixed yadi Specimen isolate (test <=10-3 col/cc InformationSp ecimen code = 07261-1) Source: [facility] Site: [facility] [id number] 11:12:00 Test Item Value Reference Range Interpretation Comments Urine culture Mixed yadi Specimen isolate (test <=10-3 col/cc InformationSp ecimen code = 83155-0) Source: [facility] Site: [facility] [id number] 11:12:00 Test Item Value Reference Range Interpretation Comments Urine culture Mixed yadi Specimen isolate (test <=10-3 col/cc InformationSp ecimen code = 66706-0) Source: [facility] Site: [facility]2022-08-24 11:12:00 Test Item Value Reference Range Interpretation Comments Urine culture Mixed yadi Specimen isolate (test <=10-3 col/cc InformationSp ecimen code = 63572-4) Source: [facility] Site: [facility]2022-08-24 11:12:00 Test Item Value Reference Range Interpretation Comments Urine culture Mixed yadi Specimen isolate (test <=10-3 col/cc InformationSp ecimen code = 09956-5) Source: [facility] Site: [facility]2022-08-24 11:12:00 Test Item Value Reference Range Interpretation Comments Urine culture Mixed yadi Specimen isolate (test <=10-3 col/cc InformationSp ecimen code = 74458-8) Source: [facility] Site: [facility] [id number] 11:12:00 Test Item Value Reference Range Interpretation Comments Urine culture Mixed yadi Specimen isolate (test <=10-3 col/cc InformationSp ecimen code = 88368-1) Source: [facility] Site: [facility]2022-08-24 11:12:00 Test Item Value Reference Range Interpretation Comments Urine culture Mixed yadi Specimen isolate (test <=10-3 col/cc InformationSp ecimen code = 07372-9) Source: [facility] RNA [Presence] in Respiratory specimen by LEILANI with probe [id number] 06:28:40 Test Item Value Reference Range Interpretation Comments SARS-CoV-2 (COVID-19) RNA Not detected [Presence] in Respiratory specimen by LEILANI with probe detection (test code = 53737-6) Whether patient is employed in a Unknown healthcare setting (test code = 64051-2) Whether the patient has symptoms Unknown related to condition of interest (test code = 91057-2) Whether the patient was Unknown hospitalized for condition of interest (test code = 26707-8) Whether the patient was admitted Unknown to intensive care unit (ICU) for condition of interest (test code = 70794-7) Whether patient resides in a Unknown congregate care setting (test code = 64232-6) status (test code = Unknown 36860-6) Date and time of symptom onset Unknown (test code = 85325-1) [address]2022-06-30 16:49:51 Test Item Value Reference Range Interpretation [...] infarct are no longer present- [place] [address] [id number] 16:49:51 Test Item Value Reference Range Interpretation [...] [facility] ED Preliminary Interpretation - Not an [id number] 04:49:00 Test Item Value Reference Range Interpretation Comments MOE (test code = MOE) Norberto Lanier FNP 10/11/2021 11:48 [facility] [place] Preliminary Interpretation - Not an OrderPerformed by: Norberto Lanier FNPAuthorized by: Fahad Anna MD ECG reviewed by ED Physician in the absence of a supervisor home restoration service: yes Interpretation: Interpretation: abnormal Rate: ECG rate: 83 ECG rate assessment: normal Rhythm: Rhythm: sinus rhythm Ectopy: Ectopy: none QRS: QRS axis: Normal QRS intervals: WideConduction: Conduction: abnormal Abnormal conduction: complete RBBB and LAFB ST segments: ST segments: NormalT waves: T waves: non-specific Lab Interpretation Abnormal (test code = 20300-5) [facility] ED Preliminary Interpretation - Not an [id number] 04:49:00 Test Item Value Reference Range Interpretation Comments MOE (test code = MOE) Norberto Lanier FNP 10/11/2021 11:48 [facility] Preliminary Interpretation - Not an OrderPerformed by: Norberto Lanier FNPAuthorized by: Fahad Anna MD ECG reviewed by ED Physician in the absence of a supervisor home restoration service: yes Interpretation: Interpretation: abnormal Rate: ECG rate: 83 ECG rate assessment: normal Rhythm: Rhythm: sinus rhythm Ectopy: Ectopy: none QRS: QRS axis: Normal QRS intervals: WideConduction: Conduction: abnormal Abnormal conduction: complete RBBB and LAFB ST segments: ST segments: NormalT waves: T waves: non-specific Lab Interpretation Abnormal (test code = 84477-3) [facility] [id number] 18:34:00 Test Item Value Reference Range Interpretation Comments GLUBED (test code = 316 mg/dL 74-106 H Performe d by certified GLUBED) hydrotel operator at [facility] URINALYSIS [id number] 17:45:00 Test Item Value Reference Range Interpretation [...] Urine Source? Clean CatchDRUGS OF ABUSE SCREEN [id number] 17:45:00 Test Item Value Reference Range Interpretation Comments UR MDMA (test code = NEGATIVE NEGATIVE MDMAQLU) URN COCAINE (test code = NEGATIVE NEGATIVE [A utomated message] COCAURN) The system [employer] generated this result transmitted ref erence range: [...] NEGATIVE [A utomated message] OPIATURN) The system [employer] generated this result transmitted ref erence range: <300 ng/ mL. The reference r maggi was not used to interpret this result as normal/abnor mal. URN PHENCYCLIDINE (PCP) NEGATIVE NEGATIVE [Au tomated message] (test code = PHENCURN) The [employer] which generated this result transmitted ref erence range: <25 ng/m L. The reference range was not used to int erpret this result as normal/abnormal . URN METHADONE (test code NEGATIVE See_Comment [A utomated message] = METHAURN) The system [employer] generated this result transmitted ref erence range: <300 ng/ mL. The reference r maggi was not used to interpret this result as normal/abnor mal. Urine Source? Clean CatchBASIC METABOLIC [id number] 16:11:00 Test Item Value Reference Range Interpretation [...] >3 months. [Automated mess age] The system [employer] generated this result transmitted ref erence range: >=60. Th e reference range was not used to int erpret this result as normal/abnormal . CREATININE (test code 0.99 mg/dL 0.55-1.3 N = CREAT) BUN/CREATININE RATIO 15.2 10-20 N (test code = BUN/CREA) CALCIUM (test code = 8.1 mg/dL 8.0-10.5 N CA) [id number] 16:11:00 Test Item Value Reference Range Interpretation Comments TROPONIN-HS (test 5.1 pg/mL 0-60 N CAUTION: U nits of the code = TROPI) current test m ethodology (pg/mL)differ f rom the prior test meth odology (ng/mL) by a fa ctorof 1000. [id number] 16:11:00 Test Item Value Reference Range Interpretation [...] CH ARGE TO THE PATIENT. CBC W/O [id number] 15:42:00 Test Item Value Reference Range Interpretation [...] N = MPV) - XR CHEST 1 [id number] 15:42:00 [facility])Name: HARJINDER COLUNGA : 1965 Sex: M FAX: Brennan Dupont [phone] [place]: [address]: PRE Name: HARJINDER COLUNGA [facility] : 1965 Age/S: 56/M [address] Unit #: [id number] Loc: [facility] [address] Phys: Brennan Dupont MD [place], [place] [address] Acct: [id number] Dis Date: Status: PRE ER PHONE #: Exam Date: 08/06/2021 1541 FAX #: Reason: WEAKNESS EXAMS: CPT CODE: [id number] XR CHEST 1 V 84643 REASON FOR EXAM: WEAKNESS Exam Order Date: 08/06/2021 3:22 PM Ordering M.Tonja: Brennan Dupont MD PROCEDURE: - XR CHEST [...] No acute cardiopulmonary process. Location: [facility] at 1542 Reported and signed by: Ramu Ramos M.D. CC: Brennan Dupont MD Technologist: Jonathan Herndon RT(R)(CT) Trnscrd Date/Time/By: 08/06/2021 (1542) : By: [email or web address] [facility] Print D/T: S: 08/06/2021 (2317) PAGE 1 Signed ReportLone Star Glucose -- Point of Care Meters (37011) 2021-06-29 00:00:00 Test Item Value Reference Range Interpretation Comments BLOOD GLUCOSE-HOME MONITOR (test code = 266 70-110 A 78509-8) [id number] 16:34:00 Test Item Value Reference Range Interpretation Comments TROPONIN-I (test code = TROPI) <0.015 ng/mL 0.00-0.056 N URINALYSIS [id number] 15:41:00 Test Item Value Reference Range Interpretation [...] HPF NONE BACU) Urine Source? Clean CatchURINALYSIS [id number] 15:39:00 Test Item Value Reference Range Interpretation [...] Urine Source? Clean Catch- CT HEAD/BRAIN W/O [id number] 13:23:00 [facility])Name: HARJINDER COLUNGA : 1965 Sex: M Name: HARJINDER COLUNGA [facility] : 1965 Age/S: 55 / M [address] Unit #: [id number] Loc: [address] Phys: Jerry Roa MD [place], [place] [address] Acct: [id number] Dis Date: Status: REG ER PHONE #: Exam Date: 12/24/2020 1305 FAX #: Reason: dizzy EXAMS: CPT CODE: [id number] CT HEAD/BRAIN W/O CONT 09175 HISTORY: dizzy TECHNIQUE: Noncontrast 2.5 mm axial [...] : 1965 Age/S: 55 / M [address] [address] Unit #: [id number] Loc: [address] Phys: Jerry Roa MD [place], [place] [address] Acct: [id number] Dis Date: Status: REG ER PHONE #: Exam Date: 12/24/2020 130 FAX #: Reason: dizzy EXAMS: CPT CODE: [id number] CT HEAD/BRAIN W/O CONT 61617 (Continued) CC: Jerry Roa MD Technologist:Vicky Saba RT(R)(CT) CTDI: DLP: Trnscb Date/Time: 12/24/2020 (1323) t.SDR.LDP1 Orig Print D/T: S: 12/24/2020 (1326) PAGE 2 Signed ReportBASIC METABOLIC [id number] 12:45:00 Test Item Value Reference Range Interpretation [...] >3 months. [Automated mess age] The system [employer] generated this result transmitted ref erence range: >=60. Th e reference range was not used to int erpret this result as normal/abnormal . CREATININE (test 0.77 mg/dL 0.55-1.3 N code = CREAT) BUN/CREATININE RATIO 20.8 10-20 H (test code = BUN/CREA) CALCIUM (test code = 8.1 mg/dL 8.0-10.5 N CA) [id number] 12:45:00 Test Item Value Reference Range Interpretation Comments TROPONIN-I (test code = TROPI) <0.015 ng/mL 0.00-0.056 N CREATINE KINASE (CK)2020-12-24 12:43:00 Test Item Value Reference Range Interpretation Comments CREATINE KINASE (CK) (test code = CK) 38 U/L 39-308 L BASIC METABOLIC [id number] 12:37:00 Test Item Value Reference Range Interpretation [...] >3 months. [Automated mess age] The system [employer] generated this result transmitted ref erence range: >=60. Th e reference range was not used to int erpret this result as normal/abnormal . CREATININE (test 0.77 mg/dL 0.55-1.3 N code = CREAT) BUN/CREATININE RATIO 20.8 10-20 H (test code = BUN/CREA) CALCIUM (test code = 8.1 mg/dL 8.0-10.5 N CA) [id number] 12:37:00 Test Item Value Reference Range Interpretation Comments TROPONIN-I (test code = TROPI) pg/mL 0-45 CBC W/O [id number] 12:33:00 Test Item Value Reference Range Interpretation [...] code 9.3 fL 6.7-11.0 N = MPV) [id number] 09:02:00 Test Item Value Reference Range Interpretation Comments GLUBED (test code = GLUBED) 96 MG/DL 74-106 N [id number] 20:42:00 Test Item Value Reference Range Interpretation Comments GLUBED (test code = GLUBED) 213 MG/DL 74-106 H [id number] 16:51:00 Test Item Value Reference Range Interpretation Comments GLUBED (test code = GLUBED) 209 MG/DL 74-106 H [id number] 15:04:00 Test Item Value Reference Range Interpretation Comments GLUBED (test code = GLUBED) 215 MG/DL 74-106 H [id number] 14:45:00 Test Item Value Reference Range Interpretation Comments ACT-ISTAT (test code = ACTI) 213 SEC 74-125 H [id number] 14:14:00 Test Item Value Reference Range Interpretation Comments ACT-ISTAT (test code = ACTI) 274 SEC 74-125 H [id number] 14:13:00 Test Item Value Reference Range Interpretation Comments ACT-ISTAT (test code = ACTI) 241 SEC 74-125 H [id number] 08:29:00 Test Item Value Reference Range Interpretation Comments GLUBED (test code = GLUBED) 115 MG/DL 74-106 H [id number] 19:03:00 Test Item Value Reference Range Interpretation Comments GLUBED (test code = GLUBED) 143 MG/DL 74-106 H [id number] 16:36:00 Test Item Value Reference Range Interpretation Comments GLUBED (test code = GLUBED) 314 MG/DL 74-106 H [id number] 12:15:00 Test Item Value Reference Range Interpretation Comments GLUBED (test code = GLUBED) 130 MG/DL 74-106 H COVID 19 Asymptomatic IH [id number] 09:47:00 Test Item Value Reference Range Interpretation Comments COVID 19 Asymptomatic IH AG (test NEGATIVE Negative code = COVNONPUIAG) Spec Comments: PATIENT GOING TO CATH LABPROTHROMBIN [id number] 09:38:00 Test Item Value Reference Range Interpretation Comments PROTHROMBIN TIME 12.2 SECONDS 9.2-12.1 H PATIENT (test code = PTP) INTERNATIONAL NORMAL 1.1 The INR is to be used RATIO (test code = only for monitoring INR) ORAL ANTICOAGULANTTH ERAPY. Indication INR Value1. Prophylaxis/lindsay atment of: Venous Thro mbosis, Pulmonary Embol ism 2.0 - 3.02. Pre vention of systemic emb olism from: Tissue he art valves 2.0 - [...] Aspirin Enoxaprin (Lovenox)Spec Comments: PATIENT GOING TO [facility] 1, THROMBOPLASTIN TIME [id number] 09:38:00 Test Item Value Reference Range Interpretation Comments THROMBOPLASTIN TIME 27.1 SECONDS 23.4-37.0 N Therape utic Range PARTIAL (test code = for Hep audrey PTT) EFFECTIVE Heparin IU/mL a PTT Seconds0.3 64. 30.7 88.8 IS PATIENT ON ANTICOAGULANTS ? 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 TO [facility] 1,GLUBED 2020-07-03 08:24:00 Test Item Value Reference Range Interpretation Comments GLUBED (test code = GLUBED) 135 MG/DL 74-106 H BASIC METABOLIC [id number] 06:53:00 Test Item Value Reference Range Interpretation [...] 9.1 mg/dL 8.4-10.2 N CA) CBC W/AUTO [id number] 06:42:00 Test Item Value Reference Range Interpretation [...] = BA#) 0.05 x10 3/uL 0.0-0.1 N [id number] 21:27:00 Test Item Value Reference Range Interpretation Comments GLUBED (test code = GLUBED) 234 MG/DL 74-106 H [id number] 16:22:00 Test Item Value Reference Range Interpretation Comments GLUBED (test code = GLUBED) 195 MG/DL 74-106 H [id number] 12:04:00 Test Item Value Reference Range Interpretation Comments GLUBED (test code = GLUBED) 179 MG/DL 74-106 H [id number] 08:51:00 Test Item Value Reference Range Interpretation Comments GLUBED (test code = GLUBED) 124 MG/DL 74-106 H [id number] 20:53:00 Test Item Value Reference Range Interpretation Comments GLUBED (test code = GLUBED) 129 MG/DL 74-106 H [id number] 18:30:00 Test Item Value Reference Range Interpretation Comments GLUBED (test code = GLUBED) 174 MG/DL 74-106 H [id number] 12:32:00 Test Item Value Reference Range Interpretation Comments GLUBED (test code = GLUBED) 152 MG/DL 74-106 H [id number] 08:40:00 Test Item Value Reference Range Interpretation Comments GLUBED (test code = GLUBED) 98 MG/DL 74-106 N [id number] 20:46:00 Test Item Value Reference Range Interpretation Comments GLUBED (test code = GLUBED) 110 MG/DL 74-106 H - DUP LE ART [id number] 18:07:00 [facility] : 1965 Sex: M FAX: Patrick Ponce Arm [phone] [place]: St: [facility] FAX: Nathanael Romero [phone] --------- Name: HARJINDER COLUNGA : 1965 Age/S: 55/M [address] Unit #: [id number] Loc: [address] [place] [address] Phys: Patrick Sr DPM R2 Acct: [id number] Dis Date: Status: ADM IN PHONE #: [phone] Exam Date: 06/30/2020 1731 FAX #: [phone] Reason: WOUNDS EXAMS: CPT CODE: [id number] DUP LE ART INDERJIT 87038 STUDY: Bilateral lower extremity ultrasound with Doppler. [...] disease. PAGE 1 Signed Report (CONTINUED) FAX: Ptarick Sr Adrian [phone] [place]: St: ADM FAX: Nathanael Romero [phone] Name: HARJINDER COLUNGA : 1965 Age/S: 55/M [address] Unit #: [id number] Loc: [address] [place] [address] Phys: Patrick Sr DPM R2 Acct: [id number] Dis Date: Status: ADM IN PHONE #: [phone] Exam Date: 06/30/2020 1731 FAX #: [phone] Reason: WOUNDS EXAMS: CPT CODE: [id number] DUP LE ART INDERJIT 60840 <Continued> at 1807 Reported and signed by: Donaldo Wen MD CC: Patrick Sr DPM; Nathanael Laureano Technologist: MARK Gallardo Trnectorrd Date/Time/By: 06/30/2020 (2672) : By: [email or web address] PAGE 2 Signed Report FAX: Patrick Sr Arm [phone] [place]: [facility]: ADM FAX: Nathanael Romero [phone] Name: HARJINDER COLUNGA : 1965 Age/S: 55/M [address] Unit #: [id number] Loc: [address] [place] [address] Phys: Patrick Sr DPM R2 Acct: [id number] Dis Date: Status: ADM IN PHONE #: [phone] Exam Date: 06/30/2020 173 FAX #: [phone] Reason: WOUNDS EXAMS: CPT CODE: [id number] DUP LE ART INDERJIT 95982 <Continued> Orig Print D/T: S: 06/30/2020 (1810) PAGE 3 Signed Report- DOP ART 1-2 LEVELS [id number] 18:07:00 [facility] : 1965 Sex: M FAX: Patrick Ponce Arm [phone] [place]: St: ADM FAX: Pavel Hicks MD [phone] [facility] 1965 [facility]S: 55[facility]M [address] Unit #: [id number] Loc: [address] [place] [address] Phys: Patrick Sr DPM R2 Acct: [id number] Dis Date: Status: ADM IN PHONE #: [phone] Exam Date: 06/30/20201730 FAX #: [phone] Reason: WOUNDS, HX OF SMOKING, NON PALP PULSES EXAMS: CPT CODE: [id number] DOP ART 1-2 LEVELS INDERJIT 86719 STUDY: Bilateral lower extremity ultrasound with Doppler. [...] Signed Report (CONTINUED) FAX: Patrick Sr Arm [phone] [place]: St: [facility] FAX: Pavel Hicks MD [phone] Name: HARJINDER COL[facility] : 1965 Age/S: 55/M [address] Unit #: [id number] Loc: [address] [place] [address] Phys: Patrick Sr DPM R2 Acct: [id number] Dis Date: Status: ADM IN PHONE #: [phone] Exam Date: 06/30/2020 173 FAX #: Reason: WOUNDS, HX OF SMOKING, NON PALP PULSES EXAMS: CPT CODE: [id number] DOP ART 1-2 LEVELS INDERJIT 45996 <Continued> at 1807 Reported and signed by: Donaldo Wen MD CC: Patrick Sr DPM; Pavel Muñoz MD Technologist: MARK Gallardo [facility] Date/Time/By: 06/30/2020 (180) : By: [email or web address] PAGE 2 Signed Report FAX:Patrick Sr Arm [phone] [place]: St: ADM FAX: Pavel Hicks MD [phone] Name: [facility] : 1965 Age/S: 55/M [address] Unit #: [id number] Loc: [address] [address] Phys:Patrick Sr DPM R2 Acct: [id number] Dis Date: Status: ADM IN PHONE #: [phone] ExamDate: 06/30/2020 1731 FAX #: [phone] Reason: WOUNDS, HX OF SMOKING, NON PALP PULSES EXAMS: CPTCODE: [id number] DOP ART 1-2 LEVELS INDERJIT 45772 <Continued> Orig Print D/T: S: 06/30/2020 (1810) PAGE 3 Signed [id number] 16:25:00 Test Item Value Reference Range Interpretation Comments GLUBED (test code = GLUBED) 244 MG/DL 74-106 H [id number] 12:16:00 Test Item Value Reference Range Interpretation Comments GLUBED (test code = GLUBED) 246 MG/DL 74-106 H [id number] 08:54:00 Test Item Value Reference Range Interpretation Comments GLUBED (test code = GLUBED) 172 MG/DL 74-106 H [id number] 21:00:00 Test Item Value Reference Range Interpretation Comments GLUBED (test code = GLUBED) 118 MG/DL 74-106 H [id number] 15:58:00 Test Item Value Reference Range Interpretation Comments GLUBED (test code = GLUBED) 249 MG/DL 74-106 H [id number] 12:28:00 Test Item Value Reference Range Interpretation Comments GLUBED (test code = GLUBED) 285 MG/DL 74-106 H - MRI LOW EXT W/O CONT [id number] 11:17:00 [facility] : 1965 Sex: M FAX: Patrick Ponce Arm [phone] [place]: St: ADM FAX: Pavel Hicks MD [phone] [facility] 1965 Age/S: 55[facility]M [address] Unit #: [id number] Loc: [address] [place] [address] Phys: Patrick Sr DPM R2 Acct: [id number] Dis Date: Status: ADM IN PHONE #: [phone] Exam Date: 06/29/2020 0959 FAX #: [phone] Reason: INDERJIT le WOUNDS IN FORE FOOT EXAMS: CPT CODE: [id number] [place] L[place] EXT W/[place] [address] EXAM: - MRI LOW EXT W/O CONT [...] IMPRESSION: No osteomyelitis. No drainable fluid collection. Mildperoneus longus tenosynovitis. 0.5 x 0.5 x 1.5 cm ganglion versus varix situated at the plantar aspect of the 3rd metatarsal shaft within the intrinsic foot musculature. at 1117 Reported and signed by: Michael Bai MD CC: Patrick Sr DPM; Pavel Muñoz MD Technologist: Wendy Agee Trnlard Date/Time/By: 06/29/2020 (1117) : By: [email or web address] PAGE 1 Signed Report FAX: Patrick Sr Arm [phone] [place]: St: ADM FAX:Pavel Hicks MD [phone] Name: HARJINDER [facility] : 1965 Age/S: 55/M [address] Unit #: [id number] Loc: [address] [place] [address] Phys: Patrick Sr DPM R2 Acct: [id number] Dis Date: Status: ADM IN PHONE #: [phone] Exam Date: 06/29/2020 0959 FAX #: [phone] Reason: INDERJIT leWOUNDS IN FORE FOOT EXAMS: CPT CODE: [id number] [place] [address] <Continued> Orig Print D/T: S: 06/29/2020 (1120) PAGE 2 Signed Report- MRI LOW EXT W/O CONT RT 2020-06-29 10:16:00 [facility] : 1965 Sex: M FAX: Patrick Ponce Arm [phone] [place]: St: ADM FAX: Pavel Hicks MD [phone] Name: HARJINDER COL[facility] : 1965 Age/S: 55/M [address] Unit #: [id number] Loc: [address] [place] [address] Phys: Patrick Sr DPM R2 Acct: [id number] Dis Date: Status: ADM IN PHONE #: [phone] ExamDate: 06/29/202059 FAX #: [phone] Reason: INDERJIT FOOT WOUNDS EXAMS: CPT CODE: [id number] MRI LOW EXT W/[place] [address] EXAM: - MRI LOW EXT W/O CONT [...] 1 Signed Report FAX: Patrick Sr Arm [phone] [place]: St: ADM FAX: Pavel Hicks MD [phone] Name: HARJINDER COL[facility] : 1965 Age/S: 55/M [address] Unit #: [id number] Loc: [address] [place] [address] Phys: Patrick Sr DPM R2 Acct: [id number] Dis Date: Status: ADM IN PHONE #: [phone] Exam Date: 06/29/2020 0959 FAX#: [phone] Reason: INDERJIT FOOT WOUNDS EXAMS: CPT CODE: [id number] MRI LOW EXT W/[place] [address] <Continued> Orig Print D/T: S: 06/29/2020 (1020) PAGE 2 Signed ReportCOMPREHENSIVE METABOLIC [id number] 09:31:00 Test Item Value Reference Range Interpretation [...] N (test code = ALKP) COMPREHENSIVE METABOLIC [id number] 09:30:00 Test Item Value Reference Range Interpretation [...] U/L 38-126 N (test code = ALKP) [id number] 09:28:00 Test Item Value Reference Range Interpretation Comments GLUBED (test code = GLUBED) 184 MG/DL 74-106 H CBC W/AUTO [id number] 07:48:00 Test Item Value Reference Range Interpretation [...] BA#) 0.03 x10 3/uL 0.0-0.1 N SED [id number] 07:48:00 Test Item Value Reference Range Interpretation Comments SED RATE (test code = SEDW) 85 mm/hr 0-20 H HGBA1C - GLYCOSYLATED [id number] 07:08:00 Test Item Value Reference Range Interpretation [...] with these hemo globin variants. CBC W/AUTO [id number] 06:43:00 Test Item Value Reference Range Interpretation [...] BA#) 0.03 x10 3/uL 0.0-0.1 N SED [id number] 06:43:00 Test Item Value Reference Range Interpretation [...] CORONARY RISK FACTOR 5.77 CHOL/H DL RISK (test code = RISK) MALE: 1/2 AVG 3.43 FEMALE: 1/2 AVG 3.27 AVG 4.97 AVG 4. 44 2X AVG 9.55 2X AVG 7.05 3X AVG 23.39 3X AVG 11.04~~~~~~~~~~ ~~~~~ ~~~~~~~~~~~~~~~ ~~~~~ ~~~~~~~~~~~~~~~ ~~~~~ ~~~~~National Cholesterol Education (NCEP ) Guidelines:~~~~ ~~~~~ ~~~~~~~~~~~~~~~ ~~~~~ ~~~~~~~~~~~~~~~ ~~~~~ ~~~~~~~~~~~ H DL Cholesterol<4 0mg/d L: HDL Choleste rol (Major risk fac tor for CHD)>60mg/d L: HDL Cholesterol (Negative risk factor for CHD)40-59mg/dL: Borderline Risk LDL Cholesterol<1 00mg/ dL: Desirable L DL-C hctvtspkbwlno68 0-159 mg/dL: Borderli ne High Risk LDL-C psdqdhdbezkda70 0-189 mg/dL: High ris k LDL-C concentra tion HDL-LDL Cholest adi is affected by a number of facto rs suchas smoking, age and sex.~~~~~~~~~~~ ~~~~~ ~~~~~~~~~~~~~~~ ~~~~~ ~~~~~~~~~~~~~~~ ~~~~~ ~~~~ C REACTIVE [id number] 05:49:00 Test Item Value Reference Range Interpretation [...] LDL Cholesterol<1 00mg/dL : Desirable LDL -C ehbkkgtntgdqv16 0-159mg /dL: Borderline High Risk LDL-C qrsvgizaojjoy73 0-189mg /dL: High risk LDL-C concentration H DL-LDL Cholesterol is affected by a n umber of factors such as smoking, age an d sex.~~~~~~~~~~~ ~~~~~~~ ~~~~~~~~~~~~~~~ ~~~~~~~ ~~~~~~~~~~~~~~~ ~~~~~ C REACTIVE [id number] 05:42:00 Test Item Value Reference Range Interpretation Comments C REACTIVE PROTEIN (test code = 51.3 mg/L 0-9 H CRP) [id number] 20:47:00 Test Item Value Reference Range Interpretation Comments GLUBED (test code = GLUBED) 253 MG/DL 74-106 H BASIC METABOLIC [id number] 17:16:00 Test Item Value Reference Range Interpretation Comments SODIUM (test code = 130 mmol/L 137-145 L NA) POTASSIUM (test code 4.6 mmol/L 3.4-5.0 N = K) CHLORIDE (test code = 93 mmol/L 98-107 L CL) CARBON DIOXIDE (test 29 mmol/L 22-30 N code = CO2) GLUCOSE (test code = 404 mg/dL 74-106 HH Critica l Value GLU) reported toFirs t Name:[id number] [address] st Name:RESULTS RE AD BACK AND [...] 9.1 mg/dL 8.4-10.2 N CA) LIVER FUNCTION [id number] 17:16:00 Test Item Value Reference Range Interpretation [...] 38-126 N (test code = ALKP) LACTIC [id number] 17:04:00 Test Item Value Reference Range Interpretation Comments LACTIC ACID (test code = LACT) 1.7 mmol/L 0.7-2.0 N - XR FOOT 3 + V [id number] 17:00:00 [facility] : 1965 Sex: M FAX: Giovany Landa MD R1 [place]: [facility]: REG Name: HARJINDER COLUNGA [facility] L[facility] : 1965 Age/S: 55/M [address] Unit #: [id number] Loc: [place] [address] Phys: Giovany Landa MD R1 Acct: [id number] Dis Date: Status: REG ER PHONE #: [phone] Exam Date: 06/28/2020 1649 FAX #: [phone] Reason: left foot wound EXAMS: CPT CODE: [id number] XR FOOT 3 + [place] [address] EXAM: - XR FOOT 3 + V LT HISTORY: left foot woundCOMPARISON: None available time of interpretation. FINDINGS: Frontal, oblique, and lateral views of the left foot are provided. Chronic erosion in the 4th distal phalanx. No osseous erosion, periostealreaction, or local demineralization is noted to suggest [...] 1Signed Report FAX: Giovany Landa MD R1 [place]: [facility]: REG Name: HARJINDER COLUNGA : 1965 Age/S: 55/M [address] Unit #: [id number] Loc: [place] [address] Phys: Giovany Landa MD R1 Acct: [id number] Dis Date: Status: REG ER PHONE #: [phone] Exam Date: 06/28/2020 1649 FAX #: [phone] Reason: left foot wound EXAMS: CPT CODE: [id number] XR FOOT 3 + [place] [address] <Continued> Orig Print D/T: S: 06/28/2020 (8292) PAGE 2 Signed ReportUA RFLX MICR CULT IF [id number] 16:19:00 Test Item Value Reference Range Interpretation [...] oth srcSOURCE OF URINE: CLEAN CATCHCBC W/AUTO [id number] 15:48:00 Test Item Value Reference Range Interpretation [...] 3/uL 0.0-0.1 N - XR CHEST 1 [id number] 15:36:00 [facility] : 1965 Sex: M FAX: Mi Ellis NP [place]: St: PRE -------- Name: HARJINDER COL[facility] : 1965 Age/S: 55/M [address] Unit #: [id number] Loc: [place] [address] Phys: Mi Ellis NP Acct: [id number] Dis Date: Status: PRE ER PHONE #: [phone] Exam Date: 06/28/2020 1533 FAX #: [phone] Reason: CODE SEPSIS EXAMS: CPT CODE: [id number] XR CHEST 1 V 87866 EXAMINATION: Frontal chest radiograph INDICATION: Code sepsis COMPARISON: 02/27/2016 FINDINGS: Clear lungs. No pleural effusion or pneumothorax. Normal cardiomediastinalsilhouette. IMPRESSION: No acute abnormality identified. Electronically Signed by Amanda Avila 06/28/2020 at 1536 Reported and signed by: Richard Lopez M.D. CC: Mi Ellis NP Technologist: Lindsey aH; STUDENT 2ND YEAR [employer] Date/Time/By: 06/28/2020 (1536) : By: [email or web address] PAGE 1 SignedReport FAX: Mi Ellis NP [place]: St: PRE Name: HARJINDER COLUNGA [facility] : 1965 Age/S: 55/M [address]: [id number] Loc: [place] [address] Phys: Mi Ellis NP Acct: [id number] Dis Date: Status: PRE ER PHONE #: [phone] Exam Date: 06/28/2020 1533 FAX #: [phone] Reason: CODE SEPSIS EXAMS: CPT CODE: [id number] XR CHEST 1 V 54053 <Continued> Orig Print D/T: S: 06/28/2020 (9857) PAGE 2 Signed Report- [facility] [id number] 15:47:00[facility] HAJRINDER COL[facility]GA : 1965 Sex: M PatientName: HARJINDER COLUNGA Unit No: [id number] EXAMS: CPT [facility]: [id number] [facility] [address] HISTORY: Infection Location: C3 FINDINGS: Sonographic images of the leg were obtained. No soft tissue fluid collection demonstrated. No cystic or solid mass identified. IMPRESSION: 1. Soft tissue edema without discrete dominant fluid collection or cystic or solid mass lesion. at 1547 Reported and signed by: Donaldo Tang M.D. CC: Rod Cerda MULTIPLE DRILL OPERATOR Technologist: Ely Lopez RDMS Trnscrbd D/ (1547) t.BABAK.RXC2 Probe: [id number] Orig Print D/T: S: 02/27/2020 (2050) Probe: CAMELIA Vora NAME: HARJINDER COLUNGA [address] [place] [address] PHYS: Rod Joe, [place] [address] : 1965 AGE: 54 SEX: M LOC: VANNA PHONE #: [phone] EXAM DATE: 02/27/2020 STATUS: REG ER FAX #: [phone] RAD NO: Page 1 Signed Report BASIC METABOLIC [id number] 15:20:00 Test Item Value Reference Range Interpretation [...] 70-110 HH ON 12/08 AT GLU) 1520, a.F.MB8 6 CALLED TO LUDIN LANG. The rep [...] NORMAL code = LIPINDEX) Index/DL GLUCOSE BEDSIDE [id number] 14:32:00 Test Item Value Reference Range Interpretation Comments GLUCOSE BEDSIDE 459 MG/DL 70-119 HH LOW/HIGH KVNG RT VALUE - TESTING (test code = ACTION REQUIRED GLUBED) - CT ABD PELVIS W/O [id number] 16:45:00 Name: HARJINDER COLUNGA [place] : 1965 Age/S: 54 / M [address] [facility] [address] Unit #: [id number] Loc: [address] Phys: Brennan Dupont MD [place], [place] [address] Acct: [id number] Dis Date: Status: REG ER PHONE #: Exam Date: 10/08/2019 3349 FAX #: Reason: R sided flan pain EXAMS: CPT CODE: [id number] CT ABD PELVIS W/O CONT 41296 EXAM: CT of the abdomen and pelvis [...] are unremarkable. No pelvic mass lesions; no abnormalfluid collections. Calcified plaques in the abdominal aorta and iliofemoral arteries. Scans through the lung bases are clear. IMPRESSION: 1. No evidence of renal or ureteral stones or of obstructive uropathy. 2. No evidence of acute abdominal or pelvic abnormalities. Location code: [facility] at 1645 Reported and signed by: Feliciano Mcdaniel M.D. CC: Brennan Dupont MD Technologist:Solomon Sands RT(R),CT CTDI: DLP: Trnscb Date/Time: 10/08/2019 (1644) t.MARIANR.GRW Orig Print D/T: S: 10/08/2019 (1647) PAGE 1 Signed ReportGLUBED 2019-10-08 16:07:00 Test Item Value Reference Range Interpretation Comments GLUBED (test code = 235 mg/dL 74-106 H Performe d by certified GLUBED) hydrotel operator at [facility] URINALYSIS [id number] 14:44:00 Test Item Value Reference Range Interpretation [...] code = per HPF NONE BACU) URINALYSIS [id number] 14:44:00 Test Item Value Reference Range Interpretation [...] = TRACE per HPF NONE BACU) URINALYSIS [id number] 14:44:00 Test Item Value Reference Range Interpretation [...] = per HPF NONE BACU) URINALYSIS W/O [id number] 14:41:00 Test Item Value Reference Range Interpretation [...] NEEDED? (test code = UAMICRO) COMPREHENSIVE METABOLIC [id number] 13:06:00 Test Item Value Reference Range Interpretation [...] 50-139 N code = ALKP) CBC W/AUTO [id number] 12:54:00 Test Item Value Reference Range Interpretation [...] REQUIRED (test code NO = MDIFF) CHEM [id number] 14:06:001.11[facility] HermannCHEM [id number] 14:06:0078 [facility] TempleDfdhvnuFDTNDQWGDR8211-06-47 14:06:25932Lwvlzywf HermannHEMATOLOGY 2016-01-03 14:06:00 Test Item Value Reference Range Interpretation Comments PTT (test code = PTT) 24.1 s 22.9-35.8 [facility] YuusdfhLWCYMBGXFW3330-03-13 06:35:004.52[facility]annHEMATOLOGY 2016-01-03 06:35:0013.3[facility] WvaxajzJWUSDHJQJT6132-50-85 06:35:009.9[facility] VzyjacaFDMZAHRYGM6579-03-34 06:35:002.6[facility] CtfgbstNGWHGTTTSR8409-82-90 06:35:00Normal (01/03/16 1:35 AM)[facility] GkamvizKYMBFPUTHO2757-86-02 06:35:00 Normal (01/03/16 1:35 AM)[facility] LoslrymFKHPBJKLLC4515-91-07 06:35:0019.4 [facility] HhxqyviESEQHXFYMX5518-61-46 06:35:0074.2[facility]annHEMATOLOGY 2016-01-03 06:35:000.1[facility] DfvnayzKTLCQWUHMM7545-59-47 06:35:000.7[facility] BmjxdwaIQVXALGZEY4610-01-74 06:35:000.1[facility] LufxcjwAQCFHGJBND2901-76-90 06:35:000.6[facility] ZidjysjFSEGVECYAY5107-18-52 06:35:000.8[facility] VIUGHYZNUZ4821-05-71 06:35:005.0[facility] HermannCARDIAC GTUMGFV9152-39-40 06:35:0047[facility] HermannCARDIAC YBPYQTJ8029-04-68 06:35:0011[facility] CHEM AHBHO3123-72-27 06:35:00246Xskpktpr HermannCHEM PSZNJ3021-58-61 06:35:00 13.5[facility]annCHEM TCTRX1561-81-51 06:35:0024[facility]annCHEM PANEL 2016-01-03 06:35:003.5[facility]annCHEM HHQCL0919-53-77 06:35:003.1[facility]annCHEM XARGJ4719-18-83 06:35:85337Ymcybyyh HermannCHEM KUVWG5344-37-11 06:35:44796Basgdvmu HermannCHEM BXBTI0533-22-24 06:35:008.2[facility] HermannCHEM VCWVM2573-65-88 06:35:009[facility] HermannCHEM QMHRR3139-62-23 06:35:006.3 [facility] HermannCHEM ARBSU9292-06-27 06:35:003.2[facility] HermannCHEM PANEL 2016-01-03 06:35:0061[facility] HermannCHEM RPTOR1032-82-16 06:35:000.5[facility] HermannCHEM FUZDS9997-93-89 06:35:0011[facility] HermannCHEM JQUGB0787-63-95 06:35:001.0[facility] HermannCHEM HBVSY0876-78-29 06:35:0022[facility] HermannCHEM HRSJE9198-14-44 06:35:000.88[facility] HermannCHEM EGBFT8926-48-93 06:35:008 [facility] HermannCHEM TGZNZ6242-64-27 06:35:21628Pfhjlpdq HermannCHEM PANEL 2016-01-03 06:35:001.8[facility] PnysbtpHVQKQERKMR2471-84-44 06:35:007.9[facility] RdjkzxfODOVNYFLET2929-24-72 06:35:49874Xchdrehe KcuqrgfSEDELCNXXY2728-81-66 06:35:0034.8[facility] SbyidgzVTLDRJIKJB0850-65-94 06:35:00 Test Item Value Reference Range Interpretation Comments MCH (test code = MCH) 30.9 pg 27.0-31.0 [facility] TtqewdqEGOWTOFKLV8862-76-33 06:35:0088.8[facility] HermannHEMATOLOGY 2016-01-03 06:35:0040.2[facility] IoriczxWGKCRLZQFG8987-47-54 06:35:0014.0[facility] XrlqnokUHDRNQCICY0626-58-02 06:35:0012.8[facility] HermannCHEM MFCWU0483-66-85 10:18:008.1[facility] HermannCHEM WUXLT6316-88-80 10:18:0026[facility] HermannCHEM EZWQB2941-52-99 10:18:79540Lahxkvde HermannCHEM BJQEA1993-23-26 10:18:009 [facility] HermannCHEM JKQEB1315-64-33 10:18:004.0[facility] HermannCHEM PANEL 2015-12-19 10:18:13741Cfoatsbh HermannCHEM CDVHW8571-00-82 10:18:01566Zbtieaou HermannCHEM YYZWF8381-18-28 10:18:05602Ucufsbli HermannCHEM ZWJYW0747-94-15 10:18:000.76[facility] HermannCHEM UXXTR7307-21-82 10:18:0012.0[facility] CLOKOUKVTA4541-10-15 10:18:00 Test Item Value Reference Range Interpretation Comments MCH (test code = MCH) 30.4 pg 27.0-31.0 [facility] TxfjqwtVYZOLCVXJI5871-63-88 10:18:75781Ezuslmdp HermannHEMATOLOGY 2015-12-19 10:18:0034.3[facility] TqkzflcOQGSNLPVKT4892-57-73 10:18:008.2[facility] FwllbpaEUFUGOHBTL1012-80-86 10:18:0012.4[facility] OenehbbZYRLVJGIVI9436-73-85 10:18:0010.3[facility] PhqwngcDOROLLEQFR3074-60-01 10:18:004.51[facility] URKBWARBSV8997-60-37 10:18:0088.7[facility] KizqtpkMVAHCDLQUU5509-14-23 10:18:00 13.7[facility] UsquvhsIBGBLSQMVS5141-43-95 10:18:0040.0[facility] HermannHEMATOLOGY 2015-12-19 10:18:0018.9[facility] GvlrbvjGZEHHZAFSU0725-99-50 10:18:0073.5[facility] RarzjrtYDGJYHVPIY2947-74-57 10:18:006.7[facility] RjhhcmgFQFPIYEZJS9979-68-86 10:18:007.6[facility] QfxpnnvRSJRBEDCIF8722-35-81 10:18:000.4[facility] KNAXDWHLKQ5896-65-42 10:18:000.0[facility] CowavmzQNKJZNBFFO1267-82-56 10:18:000.7 [facility] QhmnoylJEPRNNLDNW8950-05-00 10:18:000.5[facility] HermannHEMATOLOGY 2015-12-19 10:18:001.9[facility] ImzhibpXYKNXLXKYR7499-92-05 10:18:000.0[facility] HermannCHEM WYCNA8823-71-47 04:30:0090[facility] HermannCHEM LCYJJ7890-31-26 04:30:007.8[facility] HermannCHEM ISRGE0084-76-22 04:30:000.6[facility] HermannCHEM XRIKX8037-96-66 04:30:0062[facility] HermannCHEM XLCBO3966-11-89 04:30:0010 [facility] HermannCHEM IZOMZ0099-46-34 04:30:0013.0[facility] HermannCHEM PANEL 2015-12-13 04:30:0024[facility] HermannCHEM VTTRT0083-95-94 04:30:001.34[facility] HermannCHEM TCFHQ8101-87-42 04:30:80426Kyjhaiju HermannCHEM SSKMT4824-44-52 04:30:0015[facility] HermannCHEM JAWKU5316-44-81 04:30:0017[facility] HermannCHEM XSGHB5426-36-06 04:30:003.7[facility] HermannCHEM RGBCH7449-37-46 04:30:0011 [facility]annCHEM YECBY2424-34-69 04:30:004.0[facility] HermannCHEM PANEL 2015-12-13 04:30:008.6[facility] HermannCHEM SSDUR6800-94-54 04:30:21080Rttqmzsq HermannCHEM YJVEA9151-38-51 04:30:0099[facility] HermannCHEM PKXCT8975-59-41 04:30:004.1[facility] HermannCHEM DRYCH2940-37-79 04:30:000.9[facility] ELRAZTNVLC4271-83-91 04:30:000.4[facility] GgdloheQAVFJGXODN7696-55-80 04:30:000.0 [facility] JmfjukyTCBHFEGOWN8239-99-97 04:30:001.3[facility] HermannHEMATOLOGY 2015-12-13 04:30:006.1[facility] WpzzmddJIZIAWKEUD3786-50-44 04:30:000.3[facility] LmiyjtwPZKDSJRUAC0192-29-25 04:30:000.4[facility] QjrgndnUKRHJOZKVI4561-59-41 04:30:005.5[facility] FowhhwnDKBQPOKSLS8548-58-41 04:30:0077.4[facility] LMRFJSRSHC2035-44-59 04:30:0016.4[facility] TkzbjcfMZHLWRYVJR5226-79-85 04:30:00 340[facility] PlhnkxjKYJOWNMXJV2979-98-56 04:30:008.4[facility] HermannHEMATOLOGY 2015-12-13 04:30:0034.2[facility] EzbbwlpCIZZDEAHNO9319-89-99 04:30:0012.8[facility] QgwamqzADMQYJLVXM7335-32-38 04:30:0015.3[facility] XxsnprxRUPXSMTGFB5039-96-01 04:30:0044.7[facility] FfbkkztSKQENDASNM5204-55-08 04:30:00 Test Item Value Reference Range Interpretation Comments MCH (test code = MCH) 30.6 pg 27.0-31.0 [facility] FjfrwfcWPDIUMHMMI3278-53-38 04:30:0089.4[facility] HermannHEMATOLOGY 2015-12-13 04:30:007.9[facility] EabpdgdPVASBMXFTZ8412-07-44 04:30:004.99[facility] GnazwdyTEKZCXVZAT4139-67-01 04:30:00<2[facility] NrzlyicJLDFBJDSBM4130-26-96 04:30:00<0.003[facility] FuzejhwLEDHHTSPCW5415-63-31 04:30:00<3[facility] ZgmiaxeCGUAQCPPOH0303-77-66 04:30:004.1[facility]
[2023-01-29] MEDS ORDERED: NA CHLORIDE 0.9% 500 ML ONE (21:20)
[2023-01-29] MEDS ORDERED: LACTULOSE 20 GM/30 ML UCUP ONE (21:21)
[2023-01-29 21:41] LABS: Hematocrit 32.8 % (39.6-49.0); Lymphocytes % 18.7 % (15.3-44.8); MCV 90.3 fL (80-100); Platelets 272 thou/uL (152-406); RBC Red Blood Cell Count 3.64 M/uL (4.33-5.43)
[2023-01-29 22:11] LABS: Albumin 3.2 g/dL (3.4-5.0); Bilirubin Total 0.2 mg/dL (0.2-1.0); Potassium 4.9 mEq/L (3.5-5.1); Protein, Total 7.4 g/dL (6.4-8.2)
[2023-01-29] MEDS ORDERED: FLEET ENEMA ADULT PR ONE (22:32)
--- NOTE | 2023-01-29 22:39 | ER ---
Nurse's Notes [facility] Name: Shivam Block Age: 57 yrs Sex: Male : 1965 Arrival Date: 01/29/2023 Time: 20:47 Bed 12 Private MD: Diagnosis: Constipation Presentation: 01/29 21:00 Chief complaint: EMS states: toned out to house for abdominal pain/constipation. iw Patient was here on Friday for constipation but states that his sister lost his prescription. Per patient his last bm was earlier today but then he started having abdominal pain this afternoon. Denies n/v/d. Coronavirus screen: Vaccine status: Patient reports being unvaccinated. Ebola Screen: No symptoms or risks identified at this time. Initial Sepsis Screen: Does the patient meet any 2 criteria? No. Patient's initial sepsis screen is negative. Does the patient have a suspected source of infection? No. Patient's initial sepsis screen is negative. Risk Assessment: Do you want to hurt yourself or someone else? Patient reports no desire to harm self or others. Onset of symptoms was January 29, 2023. 21:00 Method Of Arrival: EMS: [facility] iw 21:00 Acuity: TERRANCE 4 iw Triage Assessment: 21:04 General: Appears uncomfortable, unkempt, Behavior is calm, cooperative, appropriate for iw age, Reports feeling constipated with some abdominal pain that started this evening. Last bm was today. Denies n/v. Pain: Complains of pain in abdomen Pain does not radiate. Pain currently is 6 out of 10 on a pain scale. Quality of pain is described as crampy, Pain began gradually, Is intermittent. Neuro: Level of Consciousness is awake, alert, obeys commands, Oriented to person, place, time, situation, Appropriate for age. Cardiovascular: Capillary refill < 3 seconds Patient's skin is warm and dry. Respiratory: Airway is patent Respiratory effort is even, unlabored, Respiratory pattern is regular, symmetrical. GI: Abdomen is round Last BM was January 29, 2023. Reports constipation. 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 - Social history:: Smoking status: Patient reports the use of cigarette tobacco products, smokes one pack cigarettes per day. Screenin:39 [facility] ED Fall Risk Assessment (Adult) History of falling in the last 3 months, iw including since admission No falls in past 3 months (0 pts) Confusion or Disorientation No (0 pts) Intoxicated or Sedated No (0 pts) Impaired Gait Yes (1 pt) Mobility Assist Device Used Yes (1 pt) Altered Elimination No (0 pt) Score/Fall Risk Level 0 - 2 = Low Risk. Abuse screen: Denies threats or abuse. Nutritional screening: No deficits noted. Tuberculosis screening: No symptoms or risk factors identified. Assessment: 21:06 General: See triage assessment. . iw 21:41 GI: Bowel sounds present X 4 quads. Abd is soft. iw 22:49 General: Called patient's sister, Angélica, to inform her that the patient was being iw discharged and he asked me to call and let her know he's ready to be picked up. Angélica said that she told the patient that she didn't have the gas or gas money to come pick him up when he called EMS. Informed Mitzi, charge nurse, who said we will get a cab as long as family is at the house to help him get out. Angélica will be home to assist patient get out of the cab at home. . Vital Signs: 21:00 BP 160 / 67; Pulse 62; Resp 17; Temp 97.7(O); Pulse Ox 98% on R/A; Weight 86.18 kg; iw Pain 6/10; 22:47 BP 137 / 59; Pulse 61; Resp 18; Pulse Ox 99% on R/A; iw 21:00 Pain Scale: Adult ED Course: 20:51 Patient arrived in ED. iw 20:52 Ming White MD is Attending Physician. rt 20:53 Sonia Vivar FNP-C is PHCP. kb 20:59 Analia Paez, [place] is Primary Nurse. iw 21:04 Triage completed. iw 21:04 Arm band placed on Patient placed in an exam room. iw 21:22 CBC with Diff Sent. iw 21:22 CMP Sent. iw 21:22 Lipase Sent. iw 21:37 Inserted saline lock: 22 gauge in left antecubital area, using aseptic technique. iw 21:39 Patient has correct armband on for positive identification. Bed in low position. Call iw light in reach. Side rails up X 1. Provided Education on: POC. Verbalized understanding. . 21:39 No provider procedures requiring assistance completed. Flushed left antecubital. iw 22:47 IV discontinued, intact, bleeding controlled, No redness/swelling at site. Pressure iw dressing applied. Administered Medications: 21:36 Drug: Lactulose PO 30 grams 45 ml PO once Volume: 45 ml; Route: PO; iw 22:10 Follow up: Response: No adverse reaction iw 21:37 Drug: NS 0.9% IV 500 ml IV at bolus once Route: IV; Rate: bolus; Site: left antecubital;iw 22:10 Follow up: IV Status: Completed infusion iw 22:29 Drug: Fleet Enema NM 133 ml NM once Route: NM; iw 22:37 Follow up: Response: No adverse reaction; Marked relief of symptoms iw Medication: 21:41 VIS not applicable for this client. iw Output: 22:39 Stool: 1 (Formed Stool) ; Total: 0ml. iw Outcome: 22:38 Discharge ordered by . kb 23:49 Discharged to home via wheelchair, iw 23:49 Condition: stable 23:49 Discharge instructions given to patient, Instructed on discharge instructions, follow up and referral plans. Demonstrated understanding of instructions, follow-up care, 23:56 Patient left the ED. iw Signatures: Sonia Vivar, ACADEMIC GUIDANCE SPECIALIST-C ACADEMIC GUIDANCE SPECIALIST-Analia Gallo, [place] RN iw Ming White MD MD rt
--- NOTE | 2023-01-29 22:39 | EDPHYS ---
Physician Documentation [facility] Name: Shivam Block Age: 57 yrs Sex: Male : 1965 Arrival Date: 01/29/2023 Time: 20:47 Bed 12 Private MD: ED Physician Ming White HPI: 01/29 22:05 This 57 yrs old Male presents to ER via EMS with complaints of Constipation. kb 22:05 The patient presents with abdominal pain. Onset: The symptoms/episode began/occurred kb today. The symptoms do not radiate. Associated signs and symptoms: Pertinent positives: constipation, Pertinent negatives: nausea, vomiting, and diarrhea, fever. The symptoms are described as constant. Modifying factors: The symptoms are alleviated by nothing, the symptoms are aggravated by nothing. Severity of pain: At its worst the pain was mild in the emergency department the pain is unchanged. The patient has experienced similar episodes in the past, a few times. The patient has been recently seen at the [facility] Emergency Department. Pt reports lower abd pain and constipation that started earlier today. States he had the same pain on Friday that got better after a BM. 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 - Social history:: Smoking status: Patient reports the use of cigarette tobacco products, smokes one pack cigarettes per day. ROS: 22:03 Constitutional: Negative for fever, chills, and weight loss, kb 22:03 Abdomen/GI: Positive for abdominal pain, constipation, Negative for nausea, vomiting, and diarrhea, 22:03 All other systems are negative, Exam: 22:03 Constitutional: This is a well developed, well nourished patient who is awake, alert, kb and in no acute distress. Head/Face: Normocephalic, atraumatic. ENT: Moist Mucous membranes Cardiovascular: Regular rate Respiratory: Respirations even and unlabored. No increased work of breathing. Talking in full sentences Skin: Warm, dry with normal turgor. Normal color. MS/ Extremity: Pulses equal, no cyanosis. Neurovascular intact. Full, normal range of motion. Neuro: Awake and alert, GCS 15, oriented to person, place, time, and situation. Moves all extremities. Normal gait. 22:03 Abdomen/GI: Inspection: abdomen appears normal, Bowel sounds: normal, Palpation: soft, in all quadrants, mild abdominal tenderness, in the right lower quadrant and left lower quadrant, Vital Signs: 21:00 BP 160 / 67; Pulse 62; Resp 17; Temp 97.7(O); Pulse Ox 98% on R/A; Weight 86.18 kg; iw Pain 6/10; 22:47 BP 137 / 59; Pulse 61; Resp 18; Pulse Ox 99% on R/A; iw 21:00 Pain Scale: Adult iw MDM: 20:53 Patient medically screened. kb 22:03 Data reviewed: vital signs, nurses notes. kb 22:04 Differential diagnosis: appendicitis, bowel obstruction, diverticulitis, non-specific kb abd pain, constipation. Test considered but Not performed: CT: CT scan considered, but CT scan was done on Friday for same symptoms/pain and was without acute finding. WBC normal. Historians other than the Patient: EMS: [facility]. 22:37 Counseling: I had a detailed discussion with the patient and/or guardian regarding the kb historical points, exam findings, and any diagnostic results supporting the discharge/admit diagnosis, lab results, the need for outpatient follow up, a family practitioner, a bulb sorter, to return to the emergency department if symptoms worsen or persist or if there are any questions or concerns that arise at home. ED course: Pt had bowel movement after enema and is feeling better. Ready to go home. 01/29 20:55 Order name: CBC with Diff; Complete Time: 21:51 kb 01/29 20:55 Order name: CMP; Complete Time: 22:12 kb 01/29 20:55 Order name: Lipase; Complete Time: 22:12 kb 01/29 20:55 Order name: IV Saline Lock; Complete Time: 21:39 kb 01/29 20:55 Order name: Labs collected and sent; Complete Time: 21:22 kb Administered Medications: 21:36 Drug: Lactulose PO 30 grams 45 ml PO once Volume: 45 ml; Route: PO; iw 22:10 Follow up: Response: No adverse reaction iw 21:37 Drug: NS 0.9% IV 500 ml IV at bolus once Route: IV; Rate: bolus; Site: left antecubital;iw 22:10 Follow up: IV Status: Completed infusion iw 22:29 Drug: Fleet Enema OH 133 ml OH once Route: OH; iw 22:37 Follow up: Response: No adverse reaction; Marked relief of symptoms iw Disposition: 01/30 01:19 Co-signature as Attending Physician, Ming White MD I reviewed the patient's care rt provided by the Advanced Practice Provider and agree with the diagnosis and treatment plan. Disposition Summary: 01/29/23 22:38 Discharge Ordered Notes: Location: Home kb Condition: Stable kb Diagnosis - Constipation kb Followup: kb - With: Emergency Department - When: As needed - Reason: Worsening of condition Followup: kb - With: Private Physician - When: 2 - 3 days - Reason: Recheck today's complaints, Continuance of care, Re-evaluation by your physician Discharge Instructions: - Discharge Summary Sheet kb - Constipation, Adult, Octa-xi-Tebp kb Forms: - Medication Reconciliation Form kb - Thank You Letter kb - Antibiotic Education kb - Prescription Opioid Use kb - Patient Portal Instructions kb - Leadership Thank You Letter kb Signatures: Dispatcher [employer] Sonia Castro, DRY WALL APPLICATOR-C DRY WALL APPLICATOR-Analia Gallo, RN RN Ming Cadean MD MD rt
[2023-01-30 00:27] VITALS: TEMP 97.7
[2023-01-30 00:39] VITALS: BP 137/59; O2SAT 99
== END 2023-01-29 23:56 | disposition home or self-care (01) ==
LOC: ER 20:47
DX: K59.00 Constipation, unspecified (principal); E11.9 Type 2 diabetes mellitus without complications; I10 Essential (primary) hypertension; Z91.013 Allergy to seafood
CPT/HCPCS: 85025; 36415; 83690; 80053; J7040

== ENCOUNTER 2023-02-12 21:59 | Observation (INO) | payer OTHER ==
--- OUTSIDE RECORDS SUMMARY | 2023-02-12 22:25 | XMS REPORT | Continuity of Care Document ---
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 8-18 tablet by ity of tablet 00:00: mouth in [place] 00 the Medical morning. Branch apixaban 5 2022-0 Yes 5mg Take 1 Unive rs mg tablet 8-18 tablet by ity o f 00:00: mouth in [place] the Medical morning Branch and 1 tablet in the evening. Indication s: ATRIAL FIBRILLATI ON atorvastati Yes [id number] 40mg Take 1 [facility] n 40 mg 8-18 tablet by ity of tablet 00:00: mouth at [place] 00 bedtime. Medical Branch Bifidobacte Yes [id number] 4mg Take 1 [facility] rium 8-18 capsule by ity of Infantis 00:00: mouth in [place] (ALIGN) 4 00 the Medical mg capsule morning. Bran h gabapentin Yes [id number] 400mg Take 1 [facility] 400 mg 8-18 capsule by ity of capsule 00:00: mouth in [place] 00 the Medical morning Branch and 1 capsule at noon and 1 capsule in the evening. lisinopriL Yes [id number] 2.5mg Take 1 [facility] 2.5 mg 8-18 tablet by ity of tablet 00:00: mouth in [place] 00 the morning. Branch metFORMIN Yes [id number] 500mg Take 1 [facility] 500 mg 8-18 tablet by ity of tablet 00:00: mouth in [place] 00 the Medical morning Branch and 1 tablet in the evening. Take with meals. metoprolol Yes [id number] 25mg Take 1 U nivers tartrate 25 8-18 tablet by ity of mg tablet 00:00: mouth in [facility] 00 the Medical morning Branch and 1 tablet in the evening. SERTraline Yes [id number] 25mg Take 1 [facility] 25 mg 8-18 tablet by ity of tablet 00:00: mouth in [place] 00 the morning. Branch amiodarone Yes [id number] 200mg Take 1 [facility] 200 mg 8-18 tablet by ity of tablet 00:00: mouth in [place] 00 the Medical morning. Branch insulin 2022- No [id number] 14U inject 14 [facility] glargine -18 08-28 Units ity of (SEMGLEE 00:00: 00:00 under the [place] U-100 00 :00 skin in Medical INSULIN) the Branch 100 unit/mL morning. injection insulin 2022- No [id number] 14U inject 14 [facility] glargine 8-18 08-28 Units ity of (SEMGLEE 00:00: 00:00 under the [place] U-100 00 :00 skin in Medical INSULIN) the Branch 100 unit/mL morning. injection [place],INS 2022- No 14U inject 14 [facility] ULIN 7-19 07-19 Units ity of GLARGINE-YF 14:32: 00:00 under the [facility], [place] 43 :00 skin in [facility] morning. As directed SEMGLEE,INS 202- No 14U inject 14 [facility] ULIN 7-19 07-19 Units ity of GLARGINE-YF 14:32: 00:00 under the [facility], [place] 43 :00 skin in [facility] morning. As directed SEMGLEE,INS 2022- No 14U inject 14 [facility] ULIN 7-19 07-19 Units ity of GLARGINE-YF 14:32: 00:00 under the [place], [place] 43 :00 skin in [facility] morning. As directed SEMGLEE,INS 2022- No 14U inject 14 [facility] ULIN 7-19 07-19 Units ity of GLARGINE-YF 14:32: 00:00 under the [facility], [place] 43 :00 skin in [facility] morning. As directed divalproex Yes [id number] 500mg Take 1 [facility] ER 500 mg 7-19 tablet by ity o f 24 hr 00:00: mouth [place] tablet 00 every 24 Medical (twenty- [place] ur) hours. insulin Yes [id number] 14U inject 14 [facility] glargine 7-19 Units ity of (SEMGLE[place] 00:00[place] U[place] skin in Medical INSULIN) [facility] 100 unit/mL morning. injection amiodarone Yes [id number] 200mg Take 1 [facility] 200 mg 7-19 tablet by ity of tablet 00:00: mouth in [place] 00 the Medical morning. Branch apixaban 5 Yes 5mg Take 1 Unive rs mg tablet 7-19 tablet by ity o f 00:00: mouth in [place] [address] the Medical morning Branch and 1 tablet in the evening. Indication s: ATRIAL FIBRILLATI ON metFORMIN 2022- Yes [id number] 500mg Take 1 [facility] 500 mg 7-19 tablet by ity of tablet 00:00: mouth in [place] [address] the Medical morning Branch and 1 tablet in the evening. Take with meals. divalproex 2022-0 Yes [id number] 500mg Take 1 [facility] ER 500 mg 7-19 tablet by ity o f 24 hr 00:00: mouth [place] tablet 00 every 24 Medical ([facility] ur) hours. insulin 2022-0 Yes [id number] 14U inject 14 [facility] glargine 7-19 Units ity of (SEMGLEE 00:00: [place] U-[place] skin in Medical INSULIN) the Branch 100 unit/mL morning. injection amiodarone 2022-0 Yes [id number] 200mg Take 1 [facility] 200 mg 7-19 tablet by ity of tablet 00:00: mouth in [place] 00 the Medical morning. Branch apixaban 5 2022-0 Yes 5mg Take 1 Unive rs mg tablet 7-19 tablet by ity o f 00:00: mouth in [place] the Medical morning Branch and 1 tablet in the evening. Indication s: ATRIAL FIBRILLATI ON metFORMIN 2022-0 Yes [id number] 500mg Take 1 [facility] 500 mg 7-19 tablet by ity of tablet 00:00: mouth in [place] the Medical morning Branch and 1 tablet in the evening. Take with meals. divalproex 2022-0 Yes [id number] 500mg Take 1 [facility] ER 500 mg 7-19 tablet by ity o f 24 hr 00:00: mouth [place] tablet 00 every 24 Medical ([facility] ur) hours. insulin 2022-0 Yes [id number] 14U inject 14 [facility] glargine 7-19 Units ity of (SEMGLE[place] 00:00: [place] U-[place] skin in Medical INSULIN) the Branch 100 unit/mL morning. injection amiodarone 2022-0 Yes [id number] 200mg Take 1 [facility] 200 mg 7-19 tablet by ity of tablet 00:00: mouth in [place] the Medical morning. Branch apixaban 5 2022-0 Yes 5mg Take 1 Unive rs mg tablet 7-19 tablet by ity o f 00:00: mouth in [place] the Medical morning Branch and 1 tablet in the evening. Indication s: ATRIAL FIBRILLATI ON metFORMIN 2022-0 Yes [id number] 500mg Take 1 [facility] 500 mg 7-19 tablet by ity of tablet 00:00: mouth in [place] the Medical morning Branch and 1 tablet in the evening. Take with meals. divalproex 2023-0 Yes [id number] 500mg Take 1 [facility] ER 500 mg 7-19 tablet by ity o f 24 hr 00:00: mouth [place] tablet 00 every 24 Medical (twenty-fo Branch ur) hours. divalproex 2023-0 Yes [id number] 500mg Take 1 [facility] ER 500 mg 7-19 tablet by ity o f 24 hr 00:00: mouth [place] tablet 00 every 24 Medical (twenty-fo Branch ur) hours. divalproex 2023-0 Yes [id number] 500mg Take 1 [facility] ER 500 mg 7-19 tablet by ity o f 24 hr 00:00: mouth [place] tablet 00 every 24 Medical (twenty-fo Branch ur) hours. divalproex 2023-0 Yes [id number] 500mg Take 1 [facility] ER 500 mg 7-19 tablet by ity o f 24 hr 00:00: mouth [place] tablet 00 every 24 Medical (twenty-fo Branch ur) hours. divalproex 2023-0 Yes [id number] 500mg Take 1 [facility] ER 500 mg 7-19 tablet by ity o f 24 hr 00:00: mouth [place] tablet 00 every 24 Medical (twenty-fo Branch ur) hours. divalproex 2023-0 Yes [id number] 500mg Take 1 [facility] ER 500 mg 7-19 tablet by ity o f 24 hr 00:00: mouth [place] tablet 00 every 24 Medical (twenty-fo Branch ur) hours. divalproex 2023-0 Yes [id number] 500mg Take 1 [facility] ER 500 mg 7-19 tablet by ity o f 24 hr 00:00: mouth [place] tablet 00 every 24 Medical (twenty-fo Branch ur) hours. divalproex 2023-0 Yes [id number] 500mg Take 1 [facility] ER 500 mg 7-19 tablet by ity o f 24 hr 00:00: mouth [place] tablet 00 every 24 Medical (twenty-fo Branch ur) hours. divalproex 2023-0 Yes [id number] 500mg Take 1 [facility] ER 500 mg 7-19 tablet by ity o f 24 hr 00:00: mouth [place] tablet 00 every 24 Medical (twenty-fo Branch ur) hours. divalproex 2023-0 Yes [id number] 500mg Take 1 [facility] ER 500 mg 7-19 tablet by ity o f 24 hr 00:00: mouth [place] tablet 00 every 24 Medical (twenty-fo Branch ur) hours. insulin 2022-2022- No [id number] 14U inject 14 [facility] glargine 7-19 08-18 Units ity of (SEMGLEE 00:00: 00:00 under the [place] U-100 00 :00 skin in Medical INSULIN) the Branch 100 unit/mL morning. injection amiodarone 2022-2022- No [id number] 200mg Take 1 [facility] 200 mg 7-19 08-18 tablet by ity of tablet 00:00: 00:00 mouth in [place] 00 :00 the Medical morning. Branch apixaban 5 2022-3- No 5mg Take 1 Univ ers mg tablet 7-07 12-18 tablet by ity of 00:00: 00:00 mouth in [place] 00 :00 the Medical morning Branch and 1 tablet in the evening. Indication s: ATRIAL FIBRILLATI ON metFORMIN 2022-2022- No [id number] 500mg Take 1 [facility] 500 mg 7-19 08-18 tablet by ity of tablet 00:00: 00:00 mouth in [place] 00 :00 the Medical morning Branch and 1 tablet in the evening. Take with meals. insulin 2022-2022- No [id number] 14U inject 14 [facility] glargine 7-19 08-18 Units ity of (SEMGLEE 00:00: 00:00 under the [place] U-100 00 :00 skin in Medical INSULIN) the Branch 100 unit/mL morning. injection amiodarone 2022-2022- No [id number] 200mg Take 1 [facility] 200 mg 7- 08-18 tablet by ity of tablet 00:00: 00:00 mouth in [place] 00 :00 the Medical morning. Branch apixaban 5 2022-3- No 5mg Take 1 Univ ers mg tablet 7- 08-18 tablet by ity of 00:00: 00:00 mouth in [place] 00 :00 the Medical morning Branch and 1 tablet in the evening. Indication s: ATRIAL FIBRILLATI ON metFORMIN 2022-0 2022- No [id number] 500mg Take 1 [facility] 500 mg 7-19 08-18 tablet by ity of tablet 00:00: 00:00 mouth in [place] 00 :00 the Medical morning Branch and 1 tablet in the evening. Take with meals. DIVALPROEX 2023-0 Yes [id number] TAKE 1 [facility] ER 500 mg 6-30 TABLET BY ity o f 24 hr 00:00: MOUTH [place] tablet 00 EVERY 24 Medical HOURS Branch DIVALPROEX 2023-0 3- No [id number] TAKE 1 [facility] ER 500 mg 6-30 07-19 TABLET BY ity of 24 hr 00:00: 00:00 MOUTH [place] tablet 00 :00 EVERY 24 Medical HOURS Branch DIVALPROEX 2023-0 2023- No [id number] TAKE 1 [facility] ER 500 mg 6-30 07-19 TABLET BY ity of 24 hr 00:00: 00:00 MOUTH [place] tablet 00 :00 EVERY 24 Medical HOURS Branch DIVALPROEX 2023-0 3- No [id number] TAKE 1 [facility] ER 500 mg 6-30 07-19 TABLET BY ity of 24 hr 00:00: 00:00 MOUTH [place] tablet 00 :00 EVERY 24 Medical HOURS Branch DIVALPROEX 2023-0 2022- No [id number] TAKE 1 [facility] ER 500 mg 6-30 07-19 TABLET BY ity of 24 hr 00:00: 00:00 MOUTH [place] tablet 00 :00 EVERY 24 Medical HOURS Branch blood sugar 2023-0 Yes [id number] Check U nivers diagnostic 6-07 blood ity of strip 00:00: sugar 2 [place] 00 times a Medical day. Branch E11.9. Brand per insurance. Uses ACCU-CHEK machine blood sugar 2023-0 Yes [id number] Check U nivers diagnostic 6-07 blood ity of strip 00:00: sugar 2 [place] 00 times a Medical day. Branch E11.9. Brand per insurance. Uses ACCU-CHEK machine blood sugar 2023-0 Yes [id number] Check U nivers diagnostic 6-07 blood ity of strip 00:00: sugar 2 [place] 00 times a Medical day. Branch E11.9. Brand per insurance. Uses ACCU-CHEK machine blood sugar 2023-0 Yes [id number] Check U nivers diagnostic 6-07 blood ity of strip 00:00: sugar 2 [place] 00 times a Medical day. Branch E11.9. Brand per insurance. Uses ACCU-CHEK machine blood sugar 2023-0 Yes [id number] Check U nivers diagnostic 6-07 blood ity of strip 00:00: sugar 2 [place] 00 times a Medical day. Branch E11.9. Brand per insurance. Uses ACCU-CHEK machine blood sugar 2023-0 Yes [id number] Check U nivers diagnostic 6-07 blood ity of strip 00:00: sugar 2 [place] 00 times a Medical day. Branch E11.9. Brand per insurance. Uses ACCU-CHEK machine blood sugar 2023-0 Yes [id number] Check U nivers diagnostic 6-07 blood ity of strip 00:00: sugar 2 [place] 00 times a Medical day. Branch E11.9. Brand per insurance. Uses ACCU-CHEK machine blood sugar 2023-0 Yes [id number] Check U nivers diagnostic 6-07 blood ity of strip 00:00: sugar 2 [place] 00 times a Medical day. Branch E11.9. Brand per insurance. Uses ACCU-CHEK machine blood sugar 2023-0 Yes [id number] Check U nivers diagnostic 6-07 blood ity of strip 00:00: sugar 2 [place] 00 times a Medical day. Branch E11.9. Brand per insurance. Uses ACCU-CHEK machine blood sugar 2023-0 Yes [id number] Check U nivers diagnostic 6-07 blood ity of strip 00:00: sugar 2 [place] 00 times a Medical day. Branch E11.9. Brand per insurance. Uses ACCU-CHEK machine blood sugar 2023-0 Yes [id number] Check U nivers diagnostic 6-07 blood ity of strip 00:00: sugar 2 [place] 00 times a Medical day. Branch E11.9. Brand per insurance. Uses ACCU-CHEK machine blood sugar 2023-0 Yes [id number] Check U nivers diagnostic 6-07 blood ity of strip 00:00: sugar 2 [place] 00 times a Medical day. Branch E11.9. Brand per insurance. Uses ACCU-CHEK machine blood sugar 2023-0 Yes [id number] Check U nivers diagnostic 6-07 blood ity of strip 00:00: sugar 2 [place] 00 times a Medical day. Branch E11.9. Brand per insurance. Uses ACCU-CHEK machine blood sugar 2023-0 Yes [id number] Check U nivers diagnostic 6-07 blood ity of strip 00:00: sugar 2 [place] 00 times a Medical day. Branch E11.9. Brand per insurance. Uses ACCU-CHEK machine blood sugar 2023-0 Yes [id number] Check U nivers diagnostic 6-07 blood ity of strip 00:00: sugar 2 [place] 00 times a Medical day. Branch E11.9. Brand per insurance. Uses ACCU-CHEK machine blood sugar 2023-0 Yes [id number] Check U nivers diagnostic 6-07 blood ity of strip 00:00: sugar 2 [place] 00 times a Medical day. Branch E11.9. Brand per insurance. Uses ACCU-CHEK machine blood sugar 2023-0 Yes [id number] Check U nivers diagnostic 6-07 blood ity of strip 00:00: sugar 2 [place] 00 times a Medical day. Branch E11.9. Brand per insurance. Uses ACCU-CHEK machine blood sugar 2023-0 Yes [id number] Check U nivers diagnostic 6-07 blood ity of strip 00:00: sugar 2 [place] 00 times a Medical day. Branch E11.9. Brand per insurance. Uses ACCU-CHEK machine blood sugar 2023-0 Yes [id number] Check U nivers diagnostic 6-07 blood ity of strip 00:00: sugar 2 [place] 00 times a Medical day. Branch E11.9. Brand per insurance. Uses ACCU-CHEK machine metFORMIN 2023-0 2023- No 500mg Take 1 Univ ers 500 mg 6-06 25-19 tablet by ity of tablet 00:00: 00:00 mouth in [place] 00 :00 the Medical morning Branch and 1 tablet in the evening. Take with meals. metFORMIN 2023-0 2023- No 500mg Take 1 Univ ers 500 mg 6-06 25-19 tablet by ity of tablet 00:00: 00:00 mouth in [place] 00 :00 the Medical morning Branch and [...] ity of tablet 14:13: 00:00 mouth in [place] 30 :00 the Medical morning. [place] SERTraline 2022- No 25mg Take 1 Univ ers 25 mg 5-25 05-25 tablet by ity of tablet 14:13: 00:00 mouth in [place] 30 :00 the Medical morning. [place] SEMGLEE,INS 0 Yes 14U inject 14 U nivers ULIN 5-25 Units ity of GLARGINE-YF 14:08: under the [facility], [place] 13 skin in [facility] the [place] morning. As directed SEMGLEE,INS 0 Yes 14U inject 14 U nivers ULIN 5-25 Units ity of GLARGINE-YF 14:08: under the [facility], [place] 13 skin in [facility] morning. As directed SEMGLEE,INS 0 Yes 14U inject 14 U nivers ULIN 5-25 Units ity of GLARGINE-YF 14:08: under the [facility], [place] 13 skin in [facility] morning. As directed SEMGLEE,INS 0 Yes 14U inject 14 U nivers ULIN 5-25 Units ity of GLARGINE-YF 14:08: under the [facility], [place] 13 skin in [facility] morning. As directed SEMGLEE,INS 0 Yes 14U inject 14 U nivers ULIN 5-25 Units ity of GLARGINE-YF 14:08: under the [facility], [place] 13 skin in [facility] morning. As directed SEMGLEE,INS 0 Yes 14U inject 14 U nivers ULIN 5-25 Units ity of GLARGINE-YF 14:08: under the [facility], [place] 13 skin in [facility] morning. As directed SEMGLEE,INS 2022-0 Yes 14U inject 14 U nivers ULIN 5-25 Units ity of GLARGINE-YF 14:08: under the [facility], [place] 13 skin in [facility] morning. As directed SEMGLEE,INS 2022-0 Yes 14U inject 14 U nivers ULIN 5-25 Units ity of GLARGINE-YF 14:08: under the [facility], [place] 13 skin in Medical the Branch morning. As directed SEMGLEE,INS 2023-0 Yes 14U inject 14 U nivers ULIN 5-25 Units ity of GLARGINE-YF 14:08: under the [place] 13 skin in [facility] the Branch morning. As directed SEMGLEE,INS 2023-0 Yes 14U inject 14 U nivers ULIN 5-25 Units ity of GLARGINE-YF 14:08: under the [place] 13 skin in [facility] the Branch morning. As directed SEMGLEE,INS 2023-0 Yes 14U inject 14 U nivers ULIN 5-25 Units ity of GLARGINE-YF 14:08: under the [place] 13 skin in [facility] the Branch morning. As directed SEMGLEE,INS 3-0 Yes 14U inject 14 U nivers ULIN 5-25 Units ity of GLARGINE-YF 14:08: under the [place] 13 skin in [facility] the Branch morning. As directed SEMGLEE,INS 3-0 Yes 14U inject 14 U nivers ULIN 5-25 Units ity of GLARGINE-YF 14:08: under the [place] 13 skin in [facility] the Branch morning. As directed SEMGLEE,INS 3-0 Yes 14U inject 14 U nivers ULIN 5-25 Units ity of GLARGINE-YF 14:08: under the [place] 13 skin in [facility] the Branch morning. As directed SEMGLEE,INS 2023-0 Yes 14U inject 14 U nivers ULIN 5-25 Units ity of GLARGINE-YF 14:08: under the [place] 13 skin in [facility] the [place] morning. As directed SEMGLEE,INS 2023-0 Yes 14U inject 14 U nivers ULIN 5-25 Units ity of GLARGINE-YF 14:08: under the [place] 13 skin in [facility] the Branch morning. As directed SEMGLEE,INS 2023-0 Yes 14U inject 14 U nivers ULIN 5-25 Units ity of GLARGINE-YF 14:08: under the [place] 13 skin in [facility] the Branch morning. As directed SEMGLEE,INS 2023-0 Yes 14U inject 14 U nivers ULIN 5-25 Units ity of GLARGINE-YF 14:08: under the [place] 13 skin in Medical the [place] morning. As directed SEMGLEE,INS 2022-0 Yes 14U inject 14 U nivers ULIN 5-25 Units ity of GLARGINE-YF 14:08: under the [place] 13 skin in [facility] the [place] morning. As directed SERTraline 2022-0 Yes [id number] 25mg Take 1 [facility] 25 mg 5-25 tablet by ity of tablet 00:00: mouth in [place] 00 the morning. Branch SERTraline 2022-0 Yes [id number] 100mg Take 1 [facility] 100 mg 5-25 tablet by ity of tablet 00:00: mouth in [place] 00 the morning. Branch divalproex 2022-0 Yes [id number] 500mg Take 1 [facility] ER 500 mg 5-25 tablet by ity o f 24 hr 00:00: mouth [place] tablet 00 every 24 Medical (twenty- [place] ur) hours. Bifidobacte 2022-0 Yes [id number] 4mg Take 1 [facility] rium 5-25 capsule by ity of Infantis 00:00: mouth in [place] (ALIGN) 4 00 the Medical mg capsule morning. Branc h SERTraline 2022-0 Yes [id number] 25mg Take 1 [facility] 25 mg 5-25 tablet by ity of tablet 00:00: mouth in [place] 00 the Medical morning. Branch SERTraline 2022-0 Yes [id number] 100mg Take 1 [facility] 100 mg 5-25 tablet by ity of tablet 00:00: mouth in [place] 00 the Medical morning. Branch divalproex 3-0 Yes [id number] 500mg Take 1 [facility] ER 500 mg 5-25 tablet by ity o f 24 hr 00:00: mouth [place] tablet 00 every 24 Medical (twenty-fo [place] ur) hours. Bifidobacte 2023-0 Yes [id number] 4mg Take 1 [facility] rium 5-25 capsule by ity of Infantis 00:00: mouth in [place] (ALIGN) 4 00 the Medical mg capsule morning. Branc h SERTraline 2022-0 Yes [id number] 25mg Take 1 [facility] 25 mg 5-25 tablet by ity of tablet 00:00: mouth in [place] 00 the Medical morning. Branch SERTraline 2023-0 Yes [id number] 100mg Take 1 [facility] 100 mg 5-25 tablet by ity of tablet 00:00: mouth in [place] 00 the Medical morning. Branch divalproex 2023-0 Yes [id number] 500mg Take 1 [facility] ER 500 mg 5-25 tablet by ity o f 24 hr 00:00: mouth [place] tablet 00 every 24 Medical (twenty- Branch ur) hours. Bifidobacte 2023-0 Yes [id number] 4mg Take 1 [facility] rium 5-25 capsule by ity of Infantis 00:00: mouth in [place] (ALIGN) 4 00 the Medical mg capsule morning. Bran h SERTraline 2023-0 Yes [id number] 25mg Take 1 [facility] 25 mg 5-25 tablet by ity of tablet 00:00: mouth in [place] 00 the Medical morning. Branch SERTraline 2023-0 Yes [id number] 100mg Take 1 [facility] 100 mg 5-25 tablet by ity of tablet 00:00: mouth in [place] 00 the Medical morning. Branch divalproex 2023-0 Yes [id number] 500mg Take 1 [facility] ER 500 mg 5-25 tablet by ity o f 24 hr 00:00: mouth [place] tablet 00 every 24 Medical (twenty- Branch ur) hours. Bifidobacte 2023-0 Yes [id number] 4mg Take 1 [facility] rium 5-25 capsule by ity of [facility] 00:00: mouth in [place] (ALIGN) 4 00 the Medical mg capsule morning. Bran h SERTraline 2023-0 Yes [id number] 25mg Take 1 [facility] 25 mg 5-25 tablet by ity of tablet 00:00: mouth in [place] 00 the Medical morning. Branch SERTraline 2023-0 Yes [id number] 100mg Take 1 [facility] 100 mg 5-25 tablet by ity of tablet 00:00: mouth in [place] 00 the Medical morning. Branch divalproex 2023-0 Yes [id number] 500mg Take 1 [facility] ER 500 mg 5-25 tablet by ity o f 24 hr 00:00: mouth [place] tablet 00 every 24 Medical (twenty-fo Branch ur) hours. Bifidobacte 2023-0 Yes [id number] 4mg Take 1 [facility] rium 5-25 capsule by ity of Infantis 00:00: mouth in [place] (ALIGN) 4 00 the Medical mg capsule morning. Bran h SERTraline 2023-0 Yes [id number] 25mg Take 1 [facility] 25 mg 5-25 tablet by ity of tablet 00:00: mouth in [place] 00 the Medical morning. Branch SERTraline 2023-0 Yes [id number] 100mg Take 1 [facility] 100 mg 5-25 tablet by ity of tablet 00:00: mouth in [place] 00 the Medical morning. Branch divalproex 2023-0 Yes [id number] 500mg Take 1 [facility] ER 500 mg 5-25 tablet by ity o f 24 hr 00:00: mouth [place] tablet 00 every 24 Medical (twenty- [place] ur) hours. Bifidobacte 2023-0 Yes [id number] 4mg Take 1 [facility] rium 5-25 capsule by ity of Infantis 00:00: mouth in [place] (ALIGN) 4 00 the Medical mg capsule morning. Bran h SERTraline 2023-0 Yes [id number] 25mg Take 1 [facility] 25 mg 5-25 tablet by ity of tablet 00:00: mouth in [place] 00 the Medical morning. Branch SERTraline 2023-0 Yes [id number] 100mg Take 1 [facility] 100 mg 5-25 tablet by ity of tablet 00:00: mouth in [place] 00 the Medical morning. Branch divalproex 2023-0 Yes [id number] 500mg Take 1 [facility] ER 500 mg 5-25 tablet by ity o f 24 hr 00:00: mouth [place] tablet 00 every 24 Medical (twenty- [place] ur) hours. Bifidobacte 2023-0 Yes [id number] 4mg Take 1 [facility] rium 5-25 capsule by ity of Infantis 00:00: mouth in [place] (ALIGN) 4 00 the Medical mg capsule morning. Bran h SERTraline 2023-0 Yes [id number] 25mg Take 1 [facility] 25 mg 5-25 tablet by ity of tablet 00:00: mouth in [place] 00 the Medical morning. Branch SERTraline 2023-0 Yes [id number] 100mg Take 1 [facility] 100 mg 5-25 tablet by ity of tablet 00:00: mouth in [place] 00 the Medical morning. Branch divalproex 2023-0 Yes [id number] 500mg Take 1 [facility] ER 500 mg 5-25 tablet by ity o f 24 hr 00:00: mouth [place] tablet 00 every 24 Medical (twenty- Branch ur) hours. Bifidobacte 2023-0 Yes [id number] 4mg Take 1 [facility] rium 5-25 capsule by ity of Infantis 00:00: mouth in [place] (ALIGN) 4 00 the Medical mg capsule morning. Branc h SERTraline 2023-0 Yes [id number] 25mg Take 1 [facility] 25 mg 5-25 tablet by ity of tablet 00:00: mouth in [place] 00 the Medical morning. Branch SERTraline 2023-0 Yes [id number] 100mg Take 1 [facility] 100 mg 5-25 tablet by ity of tablet 00:00: mouth in [place] 00 the Medical morning. Branch divalproex 2023-0 Yes [id number] 500mg Take 1 [facility] ER 500 mg 5-25 tablet by ity o f 24 hr 00:00: mouth [place] tablet 00 every 24 Medical (- [place] ur) hours. Bifidobacte 2023-0 Yes [id number] 4mg Take 1 [facility] rium 5-25 capsule by ity of Infantis 00:00: mouth in [place] (ALIGN) 4 00 the Medical mg capsule morning. Branc h SERTraline 2023-0 Yes [id number] 25mg Take 1 [facility] 25 mg 5-25 tablet by ity of tablet 00:00: mouth in [place] 00 the Medical morning. Branch SERTraline 2023-0 Yes [id number] 100mg Take 1 [facility] 100 mg 5-25 tablet by ity of tablet 00:00: mouth in [place] 00 the Medical morning. Branch Bifidobacte 2023-0 Yes [id number] 4mg Take 1 [facility] rium 5-25 capsule by ity of [facility] 00:00: mouth in [place] (ALIGN) 4 00 the Medical mg capsule morning. Branc h SERTraline 2023-0 Yes [id number] 25mg Take 1 [facility] 25 mg 5-25 tablet by ity of tablet 00:00: mouth in [place] 00 the Medical morning. Branch SERTraline 2023-0 Yes [id number] 100mg Take 1 [facility] 100 mg 5-25 tablet by ity of tablet 00:00: mouth in [place] 00 the Medical morning. Branch Bifidobacte 2023-0 Yes [id number] 4mg Take 1 [facility] rium 5-25 capsule by ity of [facility] 00:00: mouth in [place] (ALIGN) 4 00 the Medical mg capsule morning. Branc h SERTraline 2023-0 Yes [id number] 25mg Take 1 [facility] 25 mg 5-25 tablet by ity of tablet 00:00: mouth in [place] 00 the Medical morning. Branch Bifidobacte 2023-0 Yes [id number] 4mg Take 1 [facility] rium 5-25 capsule by [facility] of [facility] 00:00: mouth in [place] (ALIGN) 4 00 the Medical mg capsule morning. Branc h SERTraline 2023-0 Yes [id number] 25mg Take 1 [facility] 25 mg 5-25 tablet by ity of tablet 00:00: mouth in [place] 00 the Medical morning. Branch Bifidobacte 2023-0 Yes [id number] 4mg Take 1 [facility] rium 5-25 capsule by [facility] of [facility] 00:00: mouth in [place] (ALIGN) 4 00 the Medical mg capsule morning. Branc h SERTraline 2023-0 Yes [id number] 25mg Take 1 [facility] 25 mg 5-25 tablet by ity of tablet 00:00: mouth in [place] 00 the Medical morning. Branch Bifidobacte 2023-0 Yes [id number] 4mg Take 1 [facility] rium 5-25 capsule by [facility] of [facility] 00:00: mouth in [place] (ALIGN) 4 00 the Medical mg capsule morning. Branc h SERTraline 2023-0 Yes [id number] 25mg Take 1 [facility] 25 mg 5-25 tablet by ity of tablet 00:00: mouth in [place] 00 the Medical morning. Branch Bifidobacte 2023-0 Yes [id number] 4mg Take 1 [facility] rium 5-25 capsule by it[facility] of [facility] 00:00: mouth in [place] (ALIGN) 4 00 the Medical mg capsule morning. Branc h SERTraline 2023-0 Yes [id number] 25mg Take 1 [facility] 25 mg 5-25 tablet by ity of tablet 00:00: mouth in [place] 00 the Medical morning. Branch Bifidobacte 2023-0 Yes [id number] 4mg Take 1 [facility] rium 5-25 capsule by [facility] of [facility] 00:00: mouth in [place] (ALIGN) 4 00 the Medical mg capsule morning. Branc h SERTraline 2023-0 Yes [id number] 25mg Take 1 [facility] 25 mg 5-25 tablet by ity of tablet 00:00: mouth in [place] 00 the Medical morning. Branch SERTraline 2023-0 Yes [id number] 100mg Take 1 [facility] 100 mg 5-25 tablet by ity of tablet 00:00: mouth in [place] 00 the Medical morning. Branch divalproex 2023-0 Yes [id number] 500mg Take 1 [facility] ER 500 mg 5-25 tablet by ity o f 24 hr 00:00: mouth [place] tablet 00 every 24 Medical (twenty- Branch ur) hours. Bifidobacte 2023-0 Yes [id number] 4mg Take 1 [facility] rium 5-25 capsule by it[facility] of [facility] 00:00: mouth in [place] (ALIGN) 4 00 the Medical mg capsule morning. Branc h SERTraline 2023-0 Yes [id number] 25mg Take 1 [facility] 25 mg 5-25 tablet by ity of tablet 00:00: mouth in [place] 00 the Medical morning. Branch SERTraline 2023-0 Yes [id number] 100mg Take 1 [facility] 100 mg 5-25 tablet by ity of tablet 00:00: mouth in [place] 00 the Medical morning. Branch divalproex 2023-0 Yes [id number] 500mg Take 1 [facility] ER 500 mg 5-25 tablet by ity o f 24 hr 00:00: mouth [place] tablet 00 every 24 Medical (twenty- Branch ur) hours. Bifidobacte 2023-0 Yes [id number] 4mg Take 1 [facility] rium 5-25 capsule by [facility] of [facility] 00:00: mouth in [place] (ALIGN) 4 00 the Medical mg capsule morning. Branc h SERTraline 2023-0 Yes [id number] 25mg Take 1 [facility] 25 mg 5-25 tablet by ity of tablet 00:00: mouth in [place] 00 the Medical morning. Branch SERTraline 2023-0 Yes [id number] 100mg Take 1 [facility] 100 mg 5-25 tablet by ity of tablet 00:00: mouth in [place] 00 the Medical morning. Branch divalproex 2023-0 Yes [id number] 500mg Take 1 [facility] ER 500 mg 5-25 tablet by ity o f 24 hr 00:00: mouth [place] tablet 00 every 24 Medical (twenty-fo Branch ur) hours. Bifidobacte 2023-0 Yes [id number] 4mg Take 1 [facility] rium 5-25 capsule by it[facility] of [facility] 00:00: mouth in [place] (ALIGN) 4 00 the Medical mg capsule morning. Branc h SERTraline 2023-0 Yes [id number] 25mg Take 1 [facility] 25 mg 5-25 tablet by ity of tablet 00:00: mouth in [place] 00 the Medical morning. Branch SERTraline 2023-0 Yes [id number] 100mg Take 1 [facility] 100 mg 5-25 tablet by ity of tablet 00:00: mouth in [place] 00 the Medical morning. Branch divalproex 2023-0 Yes [id number] 500mg Take 1 [facility] ER 500 mg 5-25 tablet by ity o f 24 hr 00:00: mouth [place] tablet 00 every 24 Medical ( [place] ur) hours. Bifidobacte 2023-0 Yes [id number] 4mg Take 1 [facility] rium 5-25 capsule by [facility] of [facility] 00:00: mouth in [place] (ALIGN) 4 00 the Medical mg capsule morning. Bran h SERTraline 2023-0 Yes [id number] 25mg Take 1 [facility] 25 mg 5-25 tablet by ity of tablet 00:00: mouth in [place] 00 the Medical morning. Branch SERTraline 2023-0 Yes [id number] 100mg Take 1 [facility] 100 mg 5-25 tablet by ity of tablet 00:00: mouth in [place] 00 the Medical morning. Branch divalproex 2023-0 Yes [id number] 500mg Take 1 [facility] ER 500 mg 5-25 tablet by ity o f 24 hr 00:00: mouth [place] tablet 00 every 24 Medical ( [place] ur) hours. Bifidobacte 2023-0 Yes [id number] 4mg Take 1 [facility] rium 5-25 capsule by it[facility] of [facility] 00:00: mouth in [place] (ALIGN) 4 00 the Medical mg capsule morning. Bran h SERTraline 2023-0 Yes [id number] 25mg Take 1 [facility] 25 mg 5-25 tablet by ity of tablet 00:00: mouth in [place] 00 the Medical morning. Branch SERTraline 2023-0 Yes [id number] 100mg Take 1 [facility] 100 mg 5-25 tablet by ity of tablet 00:00: mouth in [place] 00 the Medical morning. Branch divalproex 2023-0 Yes [id number] 500mg Take 1 [facility] ER 500 mg 5-25 tablet by ity o f 24 hr 00:00: mouth [place] tablet 00 every 24 Medical (twenty- [place] ur) hours. Bifidobacte 2023-0 Yes [id number] 4mg Take 1 [facility] rium 5-25 capsule by [facility] of [facility] 00:00: mouth in [place] (ALIGN) 4 00 the Medical mg capsule morning. Branc h gabapentin 202-0 3- No [id number] 400mg Take 1 [facility] 400 mg 5-25 08-24 capsule by ity of capsule 00:00: 04:59 mouth in [place] 00 :00 the Medical morning Branch and 1 capsule at noon and 1 capsule in the evening. Do all this for 90 days. gabapentin 202-0 2023- No [id number] 400mg Take 1 [facility] 400 mg 5-25 08-24 capsule by ity of capsule 00:00: 04:59 mouth in [place] 00 :00 the Medical morning Branch and 1 capsule at noon and 1 capsule in the evening. Do all this for 90 days. gabapentin 2022-0 2023- No [id number] 400mg Take 1 [facility] 400 mg 5-25 08-24 capsule by ity of capsule 00:00: 04:59 mouth in [place] 00 :00 the [facility] morning Branch and 1 capsule at noon and 1 capsule in the evening. Do all this for 90 days. gabapentin 2022-0 2023- No [id number] 400mg Take 1 [facility] 400 mg 5-25 08-24 capsule by ity of capsule 00:00: 04:59 mouth in [place] 00 :00 the [facility] and 1 capsule at noon and 1 capsule in the evening. Do all this for 90 days. gabapentin 2022-0 2023- No [id number] 400mg Take 1 [facility] 400 mg 5-25 08-24 capsule by ity of capsule 00:00: 04:59 mouth in [place] 00 :00 the [facility] morning Branch and 1 capsule at noon and 1 capsule in the evening. Do all this for 90 days. gabapentin 2023-0 2023- No [id number] 400mg Take 1 [facility] 400 mg 5-25 08-24 capsule by ity of capsule 00:00: 04:59 mouth in [place] 00 :00 the [facility] morning Branch and 1 capsule at noon and 1 capsule in the evening. Do all this for 90 days. gabapentin 2023-0 2023- No [id number] 400mg Take 1 [facility] 400 mg 5-25 08-24 capsule by ity of capsule 00:00: 04:59 mouth in [place] 00 :00 the Medical morning Branch and 1 capsule at noon and 1 capsule in the evening. Do all this for 90 days. gabapentin 2023-0 2023- No [id number] 400mg Take 1 [facility] 400 mg 5-25 08-24 capsule by ity of capsule 00:00: 04:59 mouth in [place] 00 :00 the Medical morning Branch and 1 capsule at noon and 1 capsule in the evening. Do all this for 90 days. gabapentin 2023-0 2023- No [id number] 400mg Take 1 [facility] 400 mg 5-25 08-24 capsule by ity of capsule 00:00: 04:59 mouth in [place] 00 :00 the Medical morning Branch and 1 capsule at noon and 1 capsule in the evening. Do all this for 90 days. gabapentin 2023-0 2023- No [id number] 400mg Take 1 [facility] 400 mg 5-25 08-24 capsule by ity of capsule 00:00: 04:59 mouth in [place] 00 :00 the [facility] morning [place] and 1 capsule at noon and 1 capsule in the evening. Do all this for 90 days. gabapentin 2023-0 2023- No [id number] 400mg Take 1 [facility] 400 mg 5-25 08-24 capsule by ity of capsule 00:00: 04:59 mouth in [place] 00 :00 the [facility] morning [place] and 1 capsule at noon and 1 capsule in the evening. Do all this for 90 days. gabapentin 2023-0 2023- No [id number] 400mg Take 1 [facility] 400 mg 5-25 08-24 capsule by ity of capsule 00:00: 04:59 mouth in [place] 00 :00 the [facility] morning Branch and 1 capsule at noon and 1 capsule in the evening. Do all this for 90 days. gabapentin 2023-0 2023- No [id number] 400mg Take 1 [facility] 400 mg 5-25 08-24 capsule by ity of capsule 00:00: 04:59 mouth in [place] 00 :00 the [facility] morning Branch and 1 capsule at noon and 1 capsule in the evening. Do all this for 90 days. gabapentin 2023-0 2023- No [id number] 400mg Take 1 [facility] 400 mg 5-25 08-24 capsule by ity of capsule 00:00: 04:59 mouth in [place] 00 :00 the Medical morning Branch and 1 capsule at noon and 1 capsule in the evening. Do all this for 90 days. gabapentin 2023-0 2023- No [id number] 400mg Take 1 [facility] 400 mg 5-25 08-24 capsule by ity of capsule 00:00: 04:59 mouth in [place] 00 :00 the Medical morning Branch and 1 capsule at noon and 1 capsule in the evening. Do all this for 90 days. gabapentin 2023-0 2023- No [id number] 400mg Take 1 [facility] 400 mg 5-25 08-24 capsule by ity of capsule 00:00: 04:59 mouth in [place] 00 :00 the Medical morning Branch and 1 capsule at noon and 1 capsule in the evening. Do all this for 90 days. gabapentin 2023-0 2023- No [id number] 400mg Take 1 [facility] 400 mg 5-25 08-24 capsule by ity of capsule 00:00: 04:59 mouth in [place] 00 :00 the [facility] morning [place] and 1 capsule at noon and 1 capsule in the evening. Do all this for 90 days. gabapentin 2023-0 2023- No [id number] 400mg Take 1 [facility] 400 mg 5-25 08-24 capsule by ity of capsule 00:00: 04:59 mouth in [place] 00 :00 the [facility] morning [place] and 1 capsule at noon and 1 capsule in the evening. Do all this for 90 days. gabapentin 2023-0 2023- No [id number] 400mg Take 1 [facility] 400 mg 5-25 08-24 capsule by ity of capsule 00:00: 04:59 mouth in [place] 00 :00 the [facility] morning [place] and 1 capsule at noon and 1 capsule in the evening. Do all this for 90 days. gabapentin 2023-0 2023- No [id number] 400mg Take 1 [facility] 400 mg 5-25 08-24 capsule by ity of capsule 00:00: 04:59 mouth in [place] 00 :00 the Medical morning [place] and 1 capsule at noon and 1 capsule in the evening. Do all this for 90 days. gabapentin 2023-0 2023- No [id number] 400mg Take 1 [facility] 400 mg 5-25 08-24 capsule by ity of capsule 00:00: 04:59 mouth in [place] 00 :00 the Medical morning [place] and 1 capsule at noon and 1 capsule in the evening. Do all this for 90 days. gabapentin 2023-0 2023- No [id number] 400mg Take 1 [facility] 400 mg 5-25 08-24 capsule by ity of capsule 00:00: 04:59 mouth in [place] 00 :00 the Medical morning Branch and 1 capsule at noon and 1 capsule in the evening. Do all this for 90 days. gabapentin 3-0 2022- No [id number] 400mg Take 1 [facility] 400 mg 5-25 08-18 capsule by ity of capsule 00:00: 00:00 mouth in [place] 00 :00 the Medical morning Branch and 1 capsule at noon and 1 capsule in the evening. Do all this for 90 days. SERTraline 2022-0 2022- No [id number] 25mg Take 1 [facility] 25 mg 5-25 08-18 tablet by ity of tablet 00:00: 00:00 mouth in [place] 00 :00 the Medical morning. Branch Bifidobacte 2022-0 2022- No [id number] 4mg Take 1 [facility] rium 5-25 08-18 capsule by it[facility] of [facility] 00:00: 00:00 [place] (ALIGN[place] 4 00 :00 the Medical mg capsule morning. Branc h gabapentin 2022-2022- No [id number] 400mg Take 1 [facility] 400 mg 5-25 08-18 capsule by ity of capsule 00:00: 00:00 mouth in [place] 00 :00 the Medical morning [place] and 1 capsule at noon and 1 capsule in the evening. Do all this for 90 days. SERTraline 2022-0 2022- No [id number] 25mg Take 1 [facility] 25 mg 5-25 08-18 tablet by ity of tablet 00:00: 00:00 mouth in [place] 00 :00 the Medical morning. Branch Bifidobacte 2022-0 2022- No [id number] 4mg Take 1 [facility] rium 5-25 08-18 capsule by ity of [facility] 00:00: 00:00 [place] (ALIGN[place] 4 00 :00 the Medical mg capsule morning. Branc h SERTraline 2022-0 2022- No [id number] 100mg Take 1 [facility] 100 mg 5-25 07-19 tablet by ity of tablet 00:00: 00:00 mouth in [place] 00 :00 the Medical morning. Branch SERTraline 2022-0 3- No [id number] 100mg Take 1 [facility] 100 mg 5-25 07-19 tablet by ity of tablet 00:00: 00:00 mouth in [place] 00 :00 the Medical morning. Branch SERTraline 2022- No [id number] 100mg Take 1 [facility] 100 mg 5-25 07-19 tablet by ity of tablet 00:00: 00:00 mouth in [place] 00 :00 the Medical morning. Branch SERTraline 2022- No [id number] 100mg Take 1 [facility] 100 mg 5-25 07-19 tablet by ity of tablet 00:00: 00:00 mouth in [place] 00 :00 the Medical morning. Branch divalproex 2022- No [id number] 500mg Take 1 [facility] ER 500 mg [...] in ity o f ets 10:46: the [place] (ACCU-CHEK 19 morning Medica l SOFT DEV and 1 Each Branc h LANCETS at noon MIS) and 1 Each in the evening. Miscellaneo Yes Bilateral U nivers us Medical 5-23 prosthetic ity of Supply Misc 10:46: s - [facility] [place] as 19 Medical Branch lancing Yes 1{each} Take 1 Unive rs device/lanc 5-23 Each in ity o f ets 10:46: the [place] (ACCU-CHEK 19 morning Medica l SOFT DEV and 1 Each Branc h LANCETS at noon MISC) and 1 Each in the evening. Miscellaneo Yes Bilateral U nivers us Medical 5-23 prosthetic ity of Supply Misc 10:46: s - [facility] [place] 19 Medical Branch lancing Yes 1{each} Take 1 Unive rs device/lanc 5-23 Each in ity o f ets 10:46: the [place] (ACCU-CHEK 19 morning Medica l SOFT DEV [...] Each in ity o ets 10:46: the [place] (ACCU-CHEK 19 morning Medica l SOFT DEV and 1 Each Branc h LANCETS at noon MIS) and 1 Each in the evening. Miscellaneo 2022-0 Yes Bilateral U nivers us Medical 5-23 prosthetic ity of Supply Mis 10:46: s - [facility] [place] 19 Medical Branch lancing 0 Yes 1{each} Take 1 Unive rs device/lanc 5-23 Each in ity o ets 10:46: the [place] (ACCU-CHEK 19 morning Medica l SOFT DEV and 1 Each Branc h LANCETS at noon [facility]) and 1 Each in the evening. SERTraline 2022-0 Yes [id number] 100mg Take 1 [facility] 100 mg 5-19 tablet by ity of tablet 00:00: mouth in [place] 00 the Medical morning. Branch SERTraline 2022-0 Yes [id number] 100mg Take 1 [facility] 100 mg 5-19 tablet by ity of tablet 00:00: mouth in [place] 00 the Medical morning. Branch SERTraline 2022-0 Yes [id number] 100mg Take 1 [facility] 100 mg 5-19 tablet by ity of tablet 00:00: mouth in [place] 00 the Medical morning. Branch SERTraline 2022-0 202- No [id number] 100mg Take 1 [facility] 100 mg 5-19 05-25 tablet by ity of tablet 00:00: 00:00 mouth in [place] 00 :00 the Medical morning. Branch SERTraline 2022-0 2022- No [id number] 100mg Take 1 [facility] 100 mg 5-19 05-25 tablet by ity of tablet 00:00: 00:00 mouth in [place] 00 :00 the Medical morning. Branch SERTraline 2022-0 2022- No [id number] 100mg Take 1 [facility] 100 mg 5-19 05-25 tablet by ity of tablet 00:00: 00:00 mouth in [place] 00 :00 the Medical morning. Branch SERTraline 2022-0 2022- No [id number] 100mg Take 1 [facility] 100 mg 5-19 05-25 tablet by ity of tablet 00:00: 00:00 mouth in [place] 00 :00 the Medical morning. Branch blood sugar Yes [id number] Check U nivers diagnostic 5-18 blood ity of strip 00:00: sugar 2 [place] 00 times a Medical day. Branch E11.9. Brand per insurance. Uses ACCU-CHEK machine Lancets Yes [id number] Check Unive rs Misc 5-18 blood ity of 00:00: sugar 2 [place] 00 times a Medical day. Branch E11.9. Brand per insurance. amiodarone Yes [id number] 200mg Take 1 [facility] 200 mg 5-18 tablet by ity of tablet 00:00: mouth in [place] 00 the Medical morning. Branch apixaban 5 Yes 5mg Take 1 Unive rs mg tablet 5-18 tablet by ity o f 00:00: mouth in [place] 00 the Medical morning Branch and 1 tablet in the evening. Indication s: ATRIAL FIBRILLATI ON atorvastati Yes [id number] 40mg Take 1 [facility] n 40 mg 5-18 tablet by ity of tablet 00:00: mouth at [place] [address] bedtime. Medical Branch lisinopriL 2022- Yes [id number] 2.5mg Take 1 [facility] 2.5 mg 5-18 tablet by ity of tablet 00:00: mouth in [place] 00 the Medical morning. Branch metoprolol 2022- Yes [id number] 25mg Take 1 U nivers tartrate 25 5-18 tablet by ity of mg tablet 00:00: mouth in [place] 00 the Medical morning Branch and 1 tablet in the evening. blood sugar 2022-0 Yes [id number] Check U nivers diagnostic 5-18 blood ity of strip 00:00: sugar 2 [place] 00 times a Medical day. Branch E11.9. Brand per insurance. Uses ACCU-CHEK machine Lancets 2022-0 Yes [id number] Check Unive rs Misc 5-18 blood ity of 00:00: sugar 2 [place] 00 times a Medical day. Branch E11.9. Brand per insurance. amiodarone 2022-0 Yes [id number] 200mg Take 1 [facility] 200 mg 5-18 tablet by ity of tablet 00:00: mouth in [place] 00 the Medical morning. Branch apixaban 5 2022-0 Yes 5mg Take 1 Unive rs mg tablet 5-18 tablet by ity o f 00:00: mouth in [place] 00 the Medical morning Branch and 1 tablet in the evening. Indication s: ATRIAL FIBRILLATI ON atorvastati 2022-0 Yes [id number] 40mg Take 1 [facility] n 40 mg 5-18 tablet by ity of tablet 00:00: mouth at [place] 00 bedtime. Medical Branch lisinopriL 0 Yes [id number] 2.5mg Take 1 [facility] 2.5 mg 5-18 tablet by ity of tablet 00:00: mouth in [place] 00 the Medical morning. Branch metoprolol 0 Yes [id number] 25mg Take 1 U nivers tartrate 25 5-18 tablet by ity of mg tablet 00:00: mouth in [facility] s 00 the Medical morning Branch and 1 tablet in the evening. blood sugar 2022-0 Yes [id number] Check U nivers diagnostic 5-18 blood ity of strip 00:00: sugar 2 [place] 00 times a Medical day. Branch E11.9. Brand per insurance. Uses ACCU-CHEK machine Lancets 2022-0 Yes [id number] Check Unive rs Misc 5-18 blood ity of 00:00: sugar 2 [place] 00 times a Medical day. Branch E11.9. Brand per insurance. amiodarone 2022-0 Yes [id number] 200mg Take 1 [facility] 200 mg 5-18 tablet by ity of tablet 00:00: mouth in [place] 00 the Medical morning. Branch apixaban 5 2022-0 Yes 5mg Take 1 Unive rs mg tablet 5-18 tablet by ity o f 00:00: mouth in [place] 00 the Medical morning Branch and 1 tablet in the evening. Indication s: ATRIAL FIBRILLATI ON atorvastati 2022-0 Yes [id number] 40mg Take 1 [facility] n 40 mg 5-18 tablet by ity of tablet 00:00: mouth at [place] [address] bedtime. Medical Branch lisinopriL 2022-0 Yes [id number] 2.5mg Take 1 [facility] 2.5 mg 5-18 tablet by ity of tablet 00:00: mouth in [place] 00 the Medical morning. Branch metoprolol 0 Yes [id number] 25mg Take 1 U nivers tartrate 25 5-18 tablet by ity of mg tablet 00:00: mouth in [facility] 00 the morning Branch and 1 tablet in the evening. blood sugar 0 Yes [id number] Check U nivers diagnostic 5-18 blood ity of strip 00:00: sugar 2 [place] 00 times a Medical day. Branch E11.9. Brand per insurance. Uses ACCU-CHEK machine Lancets Yes [id number] Check Unive rs Misc 5-18 blood ity of 00:00: sugar 2 [place] 00 times a Medical day. Branch E11.9. Brand per insurance. amiodarone 0 Yes [id number] 200mg Take 1 [facility] 200 mg 5-18 tablet by ity of tablet 00:00: mouth in [place] 00 the Medical morning. Branch apixaban 5 2022-0 Yes 5mg Take 1 Unive rs mg tablet 5-18 tablet by ity o f 00:00: mouth in [place] 00 the Medical morning Branch and 1 tablet in the evening. Indication s: ATRIAL FIBRILLATI ON atorvastati 2022-0 Yes [id number] 40mg Take 1 [facility] n 40 mg 5-18 tablet by ity of tablet 00:00: mouth at [place] [address] bedtime. Medical Branch lisinopriL 2022-0 Yes [id number] 2.5mg Take 1 [facility] 2.5 mg 5-18 tablet by ity of tablet 00:00: mouth in [place] 00 the Medical morning. Branch metoprolol 2022-0 Yes [id number] 25mg Take 1 U nivers tartrate 25 5-18 tablet by ity of mg tablet 00:00: mouth in [facility] s 00 the Medical morning Branch and 1 tablet in the evening. blood sugar 2022-0 Yes [id number] Check U nivers diagnostic 5-18 blood ity of strip 00:00: sugar 2 [place] 00 times a Medical day. Branch E11.9. Brand per insurance. Uses ACCU-CHEK machine Lancets 2022-0 Yes [id number] Check Unive rs Misc 5-18 blood ity of 00:00: sugar 2 [place] 00 times a Medical day. Branch E11.9. Brand per insurance. amiodarone 2022-0 Yes [id number] 200mg Take 1 [facility] 200 mg 5-18 tablet by ity of tablet 00:00: mouth in [place] 00 the Medical morning. Branch apixaban 5 2022-0 Yes 5mg Take 1 Unive rs mg tablet 5-18 tablet by ity o f 00:00: mouth in [place] 00 the Medical morning Branch and 1 tablet in the evening. Indication s: ATRIAL FIBRILLATI ON atorvastati 2022-0 Yes [id number] 40mg Take 1 [facility] n 40 mg 5-18 tablet by ity of tablet 00:00: mouth at [place] 00 bedtime. Medical Branch lisinopriL 0 Yes [id number] 2.5mg Take 1 [facility] 2.5 mg 5-18 tablet by ity of tablet 00:00: mouth in [place] 00 the Medical morning. Branch metoprolol 2022-0 Yes [id number] 25mg Take 1 U nivers tartrate 25 5-18 tablet by ity of mg tablet 00:00: mouth in [facility] s 00 the Medical morning Branch and 1 tablet in the evening. blood sugar 2022-0 Yes [id number] Check U nivers diagnostic 5-18 blood ity of strip 00:00: sugar 2 [place] 00 times a Medical day. Branch E11.9. Brand per insurance. Uses ACCU-CHEK machine Lancets 2022-0 Yes [id number] Check Unive rs Misc 5-18 blood ity of 00:00: sugar 2 [place] 00 times a Medical day. Branch E11.9. Brand per insurance. amiodarone 2022-0 Yes [id number] 200mg Take 1 [facility] 200 mg 5-18 tablet by ity of tablet 00:00: mouth in [place] 00 the Medical morning. Branch apixaban 5 2022-0 Yes 5mg Take 1 Unive rs mg tablet 5-18 tablet by ity o f 00:00: mouth in [place] 00 the Medical morning Branch and 1 tablet in the evening. Indication s: ATRIAL FIBRILLATI ON atorvastati 2022-0 Yes [id number] 40mg Take 1 [facility] n 40 mg 5-18 tablet by ity of tablet 00:00: mouth at [place] [address] bedtime. Medical Branch lisinopriL 2022-0 Yes [id number] 2.5mg Take 1 [facility] 2.5 mg 5-18 tablet by ity of tablet 00:00: mouth in [place] 00 the Medical morning. Branch metoprolol 0 Yes [id number] 25mg Take 1 U nivers tartrate 25 5-18 tablet by ity of mg tablet 00:00: mouth in [facility] the morning Branch and 1 tablet in the evening. blood sugar 0 Yes [id number] Check U nivers diagnostic 5-18 blood ity of strip 00:00: sugar 2 [place] 00 times a Medical day. Branch E11.9. Brand per insurance. Uses ACCU-CHEK machine Lancets Yes [id number] Check Unive rs Misc 5-18 blood ity of 00:00: sugar 2 [place] 00 times a Medical day. Branch E11.9. Brand per insurance. amiodarone 0 Yes [id number] 200mg Take 1 [facility] 200 mg 5-18 tablet by ity of tablet 00:00: mouth in [place] the Medical morning. Branch apixaban 5 0 Yes 5mg Take 1 Unive rs mg tablet 5-18 tablet by ity o f 00:00: mouth in [place] the morning Branch and 1 tablet in the evening. Indication s: ATRIAL FIBRILLATI ON atorvastati 2022-0 Yes [id number] 40mg Take 1 [facility] n 40 mg 5-18 tablet by ity of tablet 00:00: mouth at [place] [address] bedtime. Medical Branch lisinopriL 2022-0 Yes [id number] 2.5mg Take 1 [facility] 2.5 mg 5-18 tablet by ity of tablet 00:00: mouth in [place] 00 the Medical morning. Branch metoprolol 2022-0 Yes [id number] 25mg Take 1 U nivers tartrate 25 5-18 tablet by ity of mg tablet 00:00: mouth in [place] 00 the Medical morning Branch and 1 tablet in the evening. blood sugar 2022-0 Yes [id number] Check U nivers diagnostic 5-18 blood ity of strip 00:00: sugar 2 [place] 00 times a Medical day. Branch E11.9. Brand per insurance. Uses ACCU-CHEK machine Lancets 0 Yes [id number] Check Unive rs Misc 5-18 blood ity of 00:00: sugar 2 [place] 00 times a Medical day. Branch E11.9. Brand per insurance. amiodarone 2022-0 Yes [id number] 200mg Take 1 [facility] 200 mg 5-18 tablet by ity of tablet 00:00: mouth in [place] 00 the Medical morning. Branch apixaban 5 0 Yes 5mg Take 1 Unive rs mg tablet 5-18 tablet by ity o f 00:00: mouth in [place] 00 the Medical morning Branch and 1 tablet in the evening. Indication s: ATRIAL FIBRILLATI ON atorvastati 0 Yes [id number] 40mg Take 1 [facility] n 40 mg 5-18 tablet by ity of tablet 00:00: mouth at [place] 00 bedtime. Medical Branch lisinopriL Yes [id number] 2.5mg Take 1 [facility] 2.5 mg 5-18 tablet by ity of tablet 00:00: mouth in [place] 00 the Medical morning. Branch metoprolol Yes [id number] 25mg Take 1 U nivers tartrate 25 5-18 tablet by ity of mg tablet 00:00: mouth in [facility] s 00 the Medical morning Branch and 1 tablet in the evening. Lancets Yes [id number] Check Unive rs Misc 5-18 blood ity of 00:00: sugar 2 [place] 00 times a Medical day. Branch E11.9. Brand per insurance. amiodarone 2022-0 Yes [id number] 200mg Take 1 [facility] 200 mg 5-18 tablet by ity of tablet 00:00: mouth in [place] 00 the Medical morning. Branch apixaban 5 2022-0 Yes 5mg Take 1 [facility] rs mg tablet 5-18 tablet by ity o f 00:00: mouth in [place] 00 the Medical morning Branch and 1 tablet in the evening. Indication s: ATRIAL FIBRILLATI ON atorvastati 2022-0 Yes [id number] 40mg Take 1 [facility] 40 mg 5-18 tablet by ity of tablet 00:00: mouth at [place] 00 bedtime. Medical Branch lisinopriL 2022-0 Yes [id number] 2.5mg Take 1 [facility] 2.5 mg 5-18 tablet by ity of tablet 00:00: mouth in [place] 00 the Medical morning. Branch metoprolol 2022-0 Yes [id number] 25mg Take 1 U nivers tartrate 25 5-18 tablet by ity of mg tablet 00:00: mouth [place] 00 the Medical morning Branch and 1 tablet in the evening. Lancets 2022-0 Yes [id number] Check Unive rs Misc 5-18 blood ity of 00:00: sugar 2 [place] 00 times a Medical day. Branch E11.9. Brand per insurance. amiodarone 2022-0 Yes [id number] 200mg Take 1 [facility] 200 mg 5-18 tablet by ity of tablet 00:00: mouth in [place] 00 the Medical morning. Branch apixaban 5 2022-0 Yes 5mg Take 1 [facility] mg tablet 5-18 tablet by ity o f 00:00: mouth in [place] 00 the Medical morning Branch and 1 tablet in the evening. Indication s: ATRIAL FIBRILLATI ON atorvastati 0 Yes [id number] 40mg Take 1 [facility] n 40 mg 5-18 tablet by ity of tablet 00:00: mouth at [place] 00 bedtime. Medical Branch lisinopriL 2022-0 Yes [id number] 2.5mg Take 1 [facility] 2.5 mg 5-18 tablet by ity of tablet 00:00: mouth in [place] 00 the Medical morning. Branch metoprolol 2022-0 Yes [id number] 25mg Take 1 U nivers tartrate 25 5-18 tablet by ity of mg tablet 00:00: mouth [facility] the Medical morning Branch and 1 tablet in the evening. Lancets 2022-0 Yes [id number] Check Unive rs Misc 5-18 blood ity of 00:00: sugar 2 [place] 00 times a Medical day. Branch E11.9. Brand per insurance. amiodarone 2022-0 Yes [id number] 200mg Take 1 [facility] 200 mg 5-18 tablet by ity of tablet 00:00: mouth in [place] 00 the Medical morning. Branch apixaban 5 2022-0 Yes 5mg Take 1 [facility] rs mg tablet 5-18 tablet by ity o f 00:00: mouth in [place] 00 the Medical morning Branch and 1 tablet in the evening. Indication s: ATRIAL FIBRILLATI ON atorvastati 2022-0 Yes [id number] 40mg Take 1 [facility] n 40 mg 5-18 tablet by ity of tablet 00:00: mouth at [place] 00 bedtime. Medical Branch lisinopriL 2022-0 Yes [id number] 2.5mg Take 1 [facility] 2.5 mg 5-18 tablet by ity of tablet 00:00: mouth in [place] 00 the Medical morning. Branch metoprolol Yes [id number] 25mg Take 1 U nivers tartrate 25 5-18 tablet by ity of mg tablet 00:00: mouth in [facility] s 00 the Medical morning Branch and 1 tablet in the evening. Lancets Yes [id number] Check Unive rs Misc 5-18 blood ity of 00:00: sugar 2 [place] 00 times a Medical day. Branch E11.9. Brand per insurance. amiodarone Yes [id number] 200mg Take 1 [facility] 200 mg 5-18 tablet by ity of tablet 00:00: mouth in [place] 00 the Medical morning. Branch apixaban 5 2022-0 Yes 5mg Take 1 [facility] rs mg tablet 5-18 tablet by ity o f 00:00: mouth in [place] 00 the Medical morning Branch and 1 tablet in the evening. Indication s: ATRIAL FIBRILLATI ON atorvastati 2022-0 Yes [id number] 40mg Take 1 [facility] n 40 mg 5-18 tablet by ity of tablet 00:00: mouth at [place] 00 bedtime. Medical Branch lisinopriL 2022-0 Yes [id number] 2.5mg Take 1 [facility] 2.5 mg 5-18 tablet by ity of tablet 00:00: mouth in [place] 00 the Medical morning. Branch metoprolol 2022-0 Yes [id number] 25mg Take 1 U nivers tartrate 25 5-18 tablet by ity of mg tablet 00:00: mouth in [place] 00 the Medical morning Branch and 1 tablet in the evening. Lancets 0 Yes [id number] Check Unive rs Misc 5-18 blood ity of 00:00: sugar 2 [place] 00 times a Medical day. Branch E11.9. Brand per insurance. atorvastati 2022-0 Yes [id number] 40mg Take 1 [facility] n 40 mg 5-18 tablet by ity of tablet 00:00: mouth at [place] 00 bedtime. Medical Branch lisinopriL 2022-0 Yes [id number] 2.5mg Take 1 [facility] 2.5 mg 5-18 tablet by ity of tablet 00:00: mouth in [place] 00 the Medical morning. Branch metoprolol 2022-0 Yes [id number] 25mg Take 1 U nivers tartrate 25 5-18 tablet by ity of mg tablet 00:00: mouth in [place] 00 the Medical morning Branch and 1 tablet in the evening. Lancets 2022-0 Yes [id number] Check Unive rs Misc 5-18 blood ity of 00:00: sugar 2 [place] 00 times a Medical day. Branch E11.9. Brand per insurance. atorvastati 2022-0 Yes [id number] 40mg Take 1 [facility] n 40 mg 5-18 tablet by ity of tablet 00:00: mouth at [place] 00 bedtime. Medical Branch lisinopriL 2022-0 Yes [id number] 2.5mg Take 1 [facility] 2.5 mg 5-18 tablet by ity of tablet 00:00: mouth in [place] 00 the Medical morning. Branch metoprolol 2022-0 Yes [id number] 25mg Take 1 U nivers tartrate 25 5-18 tablet by ity of mg tablet 00:00: mouth in [place] 00 the Medical morning Branch and 1 tablet in the evening. Lancets 2022-0 Yes [id number] Check Unive rs Misc 5-18 blood ity of 00:00: sugar 2 [place] 00 times a Medical day. Branch E11.9. Brand per insurance. atorvastati 2022-0 Yes [id number] 40mg Take 1 [facility] n 40 mg 5-18 tablet by ity of tablet 00:00: mouth at [place] 00 bedtime. Medical Branch lisinopriL 2022-0 Yes [id number] 2.5mg Take 1 [facility] 2.5 mg 5-18 tablet by ity of tablet 00:00: mouth in [place] 00 the Medical morning. Branch metoprolol 2022-0 Yes [id number] 25mg Take 1 U nivers tartrate 25 5-18 tablet by ity of mg tablet 00:00: mouth in [place] 00 the Medical morning Branch and 1 tablet in the evening. Lancets Yes [id number] Check Unive rs Misc 5-18 blood ity of 00:00: sugar 2 [place] 00 times a Medical day. Branch E11.9. Brand per insurance. atorvastati 0 Yes [id number] 40mg Take 1 [facility] n 40 mg 5-18 tablet by ity of tablet 00:00: mouth at [place] 00 bedtime. Medical Branch lisinopriL Yes [id number] 2.5mg Take 1 [facility] 2.5 mg 5-18 tablet by ity of tablet 00:00: mouth in [place] 00 the Medical morning. Branch metoprolol Yes [id number] 25mg Take 1 U nivers tartrate 25 5-18 tablet by ity of mg tablet 00:00: mouth in [place] 00 the Medical morning Branch and 1 tablet in the evening. Lancets Yes [id number] Check Unive rs Misc 5-18 blood ity of 00:00: sugar 2 [place] 00 times a Medical day. Branch E11.9. Brand per insurance. atorvastati Yes [id number] 40mg Take 1 [facility] n 40 mg 5-18 tablet by ity of tablet 00:00: mouth at [place] 00 bedtime. Medical Branch lisinopriL Yes [id number] 2.5mg Take 1 [facility] 2.5 mg 5-18 tablet by ity of tablet 00:00: mouth in [place] 00 the Medical morning. Branch metoprolol Yes [id number] 25mg Take 1 U nivers tartrate 25 5-18 tablet by ity of mg tablet 00:00: mouth in [place] 00 the Medical morning Branch and 1 tablet in the evening. Lancets 0 Yes [id number] Check Unive rs Misc 5-18 blood ity of 00:00: sugar 2 [place] 00 times a Medical day. Branch E11.9. Brand per insurance. Lancets 0 Yes [id number] Check Unive rs Misc 5-18 blood ity of 00:00: sugar 2 [place] 00 times a Medical day. Branch E11.9. Brand per insurance. Lancets 0 Yes [id number] Check Unive rs Misc 5-18 blood ity of 00:00: sugar 2 [place] 00 times a Medical day. Branch E11.9. Brand per insurance. Lancets 0 Yes [id number] Check Unive rs Misc 5-18 blood ity of 00:00: sugar 2 [place] 00 times a Medical day. Branch E11.9. Brand per insurance. Lancets 0 Yes [id number] Check Unive rs Misc 5-18 blood ity of 00:00: sugar 2 [place] 00 times a Medical day. Branch E11.9. Brand per insurance. Lancets 0 Yes [id number] Check Unive rs Misc 5-18 blood ity of 00:00: sugar 2 [place] 00 times a Medical day. Branch E11.9. Brand per insurance. Lancets 0 Yes [id number] Check Unive rs Misc 5-18 blood ity of 00:00: sugar 2 [place] 00 times a Medical day. Branch E11.9. Brand per insurance. Lancets 0 Yes [id number] Check Unive rs Misc 5-18 blood ity of 00:00: sugar 2 [place] 00 times a Medical day. Branch E11.9. Brand per insurance. Lancets 0 Yes [id number] Check Unive rs Misc 5-18 blood ity of 00:00: sugar 2 [place] 00 times a Medical day. Branch E11.9. Brand per insurance. Lancets 0 Yes [id number] Check Unive rs Misc 5-18 blood ity of 00:00: sugar 2 [place] 00 times a Medical day. Branch E11.9. Brand per insurance. blood sugar 2022-0 Yes [id number] Check U nivers diagnostic 5-18 blood ity of strip 00:00: sugar 2 [place] 00 times a Medical day. Branch E11.9. Brand per insurance. Uses ACCU-CHEK machine Lancets 0 Yes [id number] Check Unive rs Misc 5-18 blood ity of 00:00: sugar 2 [place] 00 times a Medical day. Branch E11.9. Brand per insurance. amiodarone 0 Yes [id number] 200mg Take 1 [facility] 200 mg 5-18 tablet by ity of tablet 00:00: mouth in [place] 00 the Medical morning. Branch apixaban 5 2022-0 Yes 5mg Take 1 [facility] rs mg tablet 5-18 tablet by ity o f 00:00: mouth in [place] the morning Branch and 1 tablet in the evening. Indication s: ATRIAL FIBRILLATI ON atorvastati Yes [id number] 40mg Take 1 [facility] n 40 mg 5-18 tablet by ity of tablet 00:00: mouth at [place] [address] bedtime. Medical Branch divalproex Yes [id number] 250mg Take 1 [facility] ER 250 mg 5-18 tablet by ity o f 24 hr 00:00: mouth [place] tablet 00 every 24 Medical (twenty- Branch ur) hours. gabapentin Yes [id number] 300mg Take 1 [facility] 300 mg 5-18 capsule by ity of capsule 00:00: mouth in [place] 00 the morning Branch and 1 capsule at noon and 1 capsule in the evening. lisinopriL Yes [id number] 2.5mg Take 1 [facility] 2.5 mg 5-18 tablet by ity of tablet 00:00: mouth in [place] the morning. Branch metoprolol Yes [id number] 25mg Take 1 U nivers tartrate 25 5-18 tablet by ity of mg tablet 00:00: mouth in [facility] the morning Branch and 1 tablet in the evening. blood sugar Yes [id number] Check U nivers diagnostic 5-18 blood ity of strip 00:00: sugar 2 [place] 00 times a Medical day. Branch E11.9. Brand per insurance. Uses ACCU-CHEK machine Lancets Yes [id number] Check Unive rs Misc 5-18 blood ity of 00:00: sugar 2 [place] 00 times a Medical day. Branch E11.9. Brand per insurance. amiodarone Yes [id number] 200mg Take 1 [facility] 200 mg 5-18 tablet by ity of tablet 00:00: mouth in [place] 00 the morning. Branch apixaban 5 Yes 5mg Take 1 [facility] rs mg tablet 5-18 tablet by ity o f 00:00: mouth in [place] the morning Branch and 1 tablet in the evening. Indication s: ATRIAL FIBRILLATI ON atorvastati Yes [id number] 40mg Take 1 [facility] n 40 mg 5-18 tablet by ity of tablet 00:00: mouth at [place] 00 bedtime. Medical Branch divalproex 2022-0 Yes [id number] 250mg Take 1 [facility] ER 250 mg 5-18 tablet by ity o f 24 hr 00:00: mouth [place] tablet 00 every 24 Medical ( Branch ur) hours. gabapentin 2022-0 Yes [id number] 300mg Take 1 [facility] 300 mg 5-18 capsule by ity of capsule 00:00: mouth in [place] 00 the morning Branch and 1 capsule at noon and 1 capsule in the evening. lisinopriL 2022-0 Yes [id number] 2.5mg Take 1 [facility] 2.5 mg 5-18 tablet by ity of tablet 00:00: mouth in [place] 00 the Medical morning. Branch metoprolol 2022-0 Yes [id number] 25mg Take 1 U nivers tartrate 25 5-18 tablet by ity of mg tablet 00:00: mouth in [facility] 00 the morning Branch and 1 tablet in the evening. blood sugar 0 Yes [id number] Check U nivers diagnostic 5-18 blood ity of strip 00:00: sugar 2 [place] 00 times a Medical day. Branch E11.9. Brand per insurance. Uses ACCU-CHEK machine Lancets 0 Yes [id number] Check Unive rs Misc 5-18 blood ity of 00:00: sugar 2 [place] 00 times a Medical day. Branch E11.9. Brand per insurance. amiodarone 2022-0 Yes [id number] 200mg Take 1 [facility] 200 mg 5-18 tablet by ity of tablet 00:00: mouth in [place] 00 the Medical morning. Branch apixaban 5 2022-0 Yes 5mg Take 1 [facility] rs mg tablet 5-18 tablet by ity o f 00:00: mouth in [place] the morning Branch and 1 tablet in the evening. Indication s: ATRIAL FIBRILLATI ON atorvastati 2022-0 Yes [id number] 40mg Take 1 [facility] n 40 mg 5-18 tablet by ity of tablet 00:00: mouth at [place] 00 bedtime. Medical Branch divalproex 2022-0 Yes [id number] 250mg Take 1 [facility] ER 250 mg 5-18 tablet by ity o f 24 hr 00:00: mouth [place] tablet 00 every 24 Medical (twenty- Branch ur) hours. gabapentin 2022-0 Yes [id number] 300mg Take 1 [facility] 300 mg 5-18 capsule by ity of capsule 00:00: mouth in [place] 00 the morning Branch and 1 capsule at noon and 1 capsule in the evening. lisinopriL 2022-0 Yes [id number] 2.5mg Take 1 [facility] 2.5 mg 5-18 tablet by ity of tablet 00:00: mouth in [place] 00 the morning. Branch metoprolol 2022-0 Yes [id number] 25mg Take 1 U nivers tartrate 25 5-18 tablet by ity of mg tablet 00:00: mouth in [facility] s 00 the morning Branch and 1 tablet in the evening. blood sugar 0 Yes [id number] Check U nivers diagnostic 5-18 blood ity of strip 00:00: sugar 2 [place] times a Medical day. Branch E11.9. Brand per insurance. Uses ACCU-CHEK machine Lancets Yes [id number] Check Unive rs Misc 5-18 blood ity of 00:00: sugar 2 [place] times a Medical day. Branch E11.9. Brand per insurance. amiodarone Yes [id number] 200mg Take 1 [facility] 200 mg 5-18 tablet by ity of tablet 00:00: mouth in [place] 00 the morning. Branch apixaban 5 0 Yes 5mg Take 1 Unive rs mg tablet 5-18 tablet by ity o f 00:00: mouth in [place] the morning Branch and 1 tablet in the evening. Indication s: ATRIAL FIBRILLATI ON atorvastati 2022-0 Yes [id number] 40mg Take 1 [facility] n 40 mg 5-18 tablet by ity of tablet 00:00: mouth at [place] 00 bedtime. Medical Branch divalproex 2022-0 Yes [id number] 250mg Take 1 [facility] ER 250 mg 5-18 tablet by ity o f 24 hr 00:00: mouth [place] tablet 00 every 24 Medical (twenty-fo Branch ur) hours. gabapentin 2022-0 Yes [id number] 300mg Take 1 [facility] 300 mg 5-18 capsule by ity of capsule 00:00: mouth in [place] 00 the morning Branch and 1 capsule at noon and 1 capsule in the evening. lisinopriL 2022-0 Yes [id number] 2.5mg Take 1 [facility] 2.5 mg 5-18 tablet by ity of tablet 00:00: mouth in [place] 00 the Medical morning. Branch metoprolol 2022-0 Yes [id number] 25mg Take 1 U nivers tartrate 25 5-18 tablet by ity of mg tablet 00:00: mouth in [facility] 00 the morning Branch and 1 tablet in the evening. blood sugar 2022-0 Yes [id number] Check U nivers diagnostic 5-18 blood ity of strip 00:00: sugar 2 [place] 00 times a Medical day. Branch E11.9. Brand per insurance. Uses ACCU-CHEK machine Lancets Yes [id number] Check Unive rs Misc 5-18 blood ity of 00:00: sugar 2 [place] 00 times a Medical day. Branch E11.9. Brand per insurance. amiodarone 2022-0 Yes [id number] 200mg Take 1 [facility] 200 mg 5-18 tablet by ity of tablet 00:00: mouth in [place] the morning. Branch apixaban 5 2022-0 Yes 5mg Take 1 Unive rs mg tablet 5-18 tablet by ity o f 00:00: mouth in [place] the morning Branch and 1 tablet in the evening. Indication s: ATRIAL FIBRILLATI ON atorvastati 2022-0 Yes [id number] 40mg Take 1 [facility] n 40 mg 5-18 tablet by ity of tablet 00:00: mouth at [place] [address] bedtime. Medical Branch divalproex 2022-0 Yes [id number] 250mg Take 1 [facility] ER 250 mg 5-18 tablet by ity o f 24 hr 00:00: mouth [place] tablet 00 every 24 Medical (twenty-fo Branch ur) hours. gabapentin 2022-0 Yes [id number] 300mg Take 1 [facility] 300 mg 5-18 capsule by ity of capsule 00:00: mouth in [place] 00 the morning Branch and 1 capsule at noon and 1 capsule in the evening. lisinopriL 2022-0 Yes [id number] 2.5mg Take 1 [facility] 2.5 mg 5-18 tablet by ity of tablet 00:00: mouth in [place] 00 the morning. Branch metoprolol 2022-0 Yes [id number] 25mg Take 1 U nivers tartrate 25 5-18 tablet by ity of mg tablet 00:00: mouth in [facility] s 00 the Medical morning Branch and 1 tablet in the evening. blood sugar 2022-0 Yes [id number] Check U nivers diagnostic 5-18 blood ity of strip 00:00: sugar 2 [place] 00 times a Medical day. Branch E11.9. Brand per insurance. Uses ACCU-CHEK machine Lancets 2022-0 Yes [id number] Check Unive rs Misc 5-18 blood ity of 00:00: sugar 2 [place] 00 times a Medical day. Branch E11.9. Brand per insurance. amiodarone 2022-0 Yes [id number] 200mg Take 1 [facility] 200 mg 5-18 tablet by ity of tablet 00:00: mouth in [place] 00 the Medical morning. Branch apixaban 5 2022-0 Yes 5mg Take 1 Unive rs mg tablet 5-18 tablet by ity o f 00:00: mouth in [place] 00 the Medical morning Branch and 1 tablet in the evening. Indication s: ATRIAL FIBRILLATI ON atorvastati Yes [id number] 40mg Take 1 [facility] n 40 mg 5-18 tablet by ity of tablet 00:00: mouth at [place] 00 bedtime. Medical Branch lisinopriL 0 Yes [id number] 2.5mg Take 1 [facility] 2.5 mg 5-18 tablet by ity of tablet 00:00: mouth in [place] 00 the Medical morning. Branch metoprolol 0 Yes [id number] 25mg Take 1 U nivers tartrate 25 5-18 tablet by ity of mg tablet 00:00: mouth in [facility] s 00 the Medical morning Branch and 1 tablet in the evening. blood sugar 2022-0 Yes [id number] Check U nivers diagnostic 5-18 blood ity of strip 00:00: sugar 2 [place] 00 times a Medical day. Branch E11.9. Brand per insurance. Uses ACCU-CHEK machine Lancets 2022-0 Yes [id number] Check Unive rs Misc 5-18 blood ity of 00:00: sugar 2 [place] 00 times a Medical day. Branch E11.9. Brand per insurance. amiodarone 2022-0 Yes [id number] 200mg Take 1 [facility] 200 mg 5-18 tablet by ity of tablet 00:00: mouth in [place] 00 the Medical morning. Branch apixaban 5 2022-0 Yes 5mg Take 1 Unive rs mg tablet 5-18 tablet by ity o f 00:00: mouth in [place] 00 the Medical morning Branch and 1 tablet in the evening. Indication s: ATRIAL FIBRILLATI ON atorvastati 2022-0 Yes [id number] 40mg Take 1 [facility] n 40 mg 5-18 tablet by ity of tablet 00:00: mouth at [place] [address] bedtime. Medical Branch lisinopriL 2022-0 Yes [id number] 2.5mg Take 1 [facility] 2.5 mg 5-18 tablet by ity of tablet 00:00: mouth in [place] 00 the Medical morning. Branch metoprolol 0 Yes [id number] 25mg Take 1 U nivers tartrate 25 5-18 tablet by ity of mg tablet 00:00: mouth in [facility] the Medical morning Branch and 1 tablet in the evening. blood sugar 0 Yes [id number] Check U nivers diagnostic 5-18 blood ity of strip 00:00: sugar 2 [place] 00 times a Medical day. Branch E11.9. Brand per insurance. Uses ACCU-CHEK machine Lancets Yes [id number] Check Unive rs Misc 5-18 blood ity of 00:00: sugar 2 [place] 00 times a Medical day. Branch E11.9. Brand per insurance. amiodarone 2022-0 Yes [id number] 200mg Take 1 [facility] 200 mg 5-18 tablet by ity of tablet 00:00: mouth in [place] 00 the Medical morning. Branch apixaban 5 2022-0 Yes 5mg Take 1 Unive rs mg tablet 5-18 tablet by ity o f 00:00: mouth in [place] the Medical morning Branch and 1 tablet in the evening. Indication s: ATRIAL FIBRILLATI ON atorvastati 2022-0 Yes [id number] 40mg Take 1 [facility] n 40 mg 5-18 tablet by ity of tablet 00:00: mouth at [place] [address] bedtime. Medical Branch lisinopriL 2022-0 Yes [id number] 2.5mg Take 1 [facility] 2.5 mg 5-18 tablet by ity of tablet 00:00: mouth in [place] 00 the Medical morning. Branch metoprolol 2022-0 Yes [id number] 25mg Take 1 U nivers tartrate 25 5-18 tablet by ity of mg tablet 00:00: mouth in [place] 00 the Medical morning Branch and 1 tablet in the evening. blood sugar 2022-0 Yes [id number] Check U nivers diagnostic 5-18 blood ity of strip 00:00: sugar 2 [place] times a Medical day. Branch E11.9. Brand per insurance. Uses ACCU-CHEK machine Lancets 2022-0 Yes [id number] Check Unive rs Misc 5-18 blood ity of 00:00: sugar 2 [place] 00 times a Medical day. Branch E11.9. Brand per insurance. amiodarone 2022-0 Yes [id number] 200mg Take 1 [facility] 200 mg 5-18 tablet by ity of tablet 00:00: mouth in [place] 00 the Medical morning. Branch apixaban 5 2022-0 Yes 5mg Take 1 Unive rs mg tablet 5-18 tablet by ity o f 00:00: mouth in [place] [address] the Medical morning Branch and 1 tablet in the evening. Indication s: ATRIAL FIBRILLATI ON atorvastati Yes [id number] 40mg Take 1 [facility] n 40 mg 5-18 tablet by ity of tablet 00:00: mouth at [place] [address] bedtime. Medical Branch lisinopriL 0 Yes [id number] 2.5mg Take 1 [facility] 2.5 mg 5-18 tablet by ity of tablet 00:00: mouth in [place] 00 the Medical morning. Branch metoprolol 0 Yes [id number] 25mg Take 1 U nivers tartrate 25 5-18 tablet by ity of mg tablet 00:00: mouth in [facility] s 00 the Medical morning Branch and 1 tablet in the evening. blood sugar 2022-0 Yes [id number] Check U nivers diagnostic 5-18 blood ity of strip 00:00: sugar 2 [place] 00 times a Medical day. Branch E11.9. Brand per insurance. Uses ACCU-CHEK machine Lancets 2022-0 Yes [id number] Check Unive rs Misc 5-18 blood ity of 00:00: sugar 2 [place] 00 times a Medical day. Branch E11.9. Brand per insurance. amiodarone 2022-0 Yes [id number] 200mg Take 1 [facility] 200 mg 5-18 tablet by ity of tablet 00:00: mouth in [place] 00 the Medical morning. Branch apixaban 5 2022-0 Yes 5mg Take 1 Unive rs mg tablet 5-18 tablet by ity o f 00:00: mouth in [place] 00 the Medical morning Branch and 1 tablet in the evening. Indication s: ATRIAL FIBRILLATI ON atorvastati 2022-0 Yes [id number] 40mg Take 1 [facility] n 40 mg 5-18 tablet by ity of tablet 00:00: mouth at [place] [address] bedtime. Medical Branch lisinopriL 2022-0 Yes [id number] 2.5mg Take 1 [facility] 2.5 mg 5-18 tablet by ity of tablet 00:00: mouth in [place] 00 the Medical morning. Branch metoprolol 0 Yes [id number] 25mg Take 1 U nivers tartrate 25 5-18 tablet by ity of mg tablet 00:00: mouth in [facility] the morning Branch and 1 tablet in the evening. blood sugar 0 Yes [id number] Check U nivers diagnostic 5-18 blood ity of strip 00:00: sugar 2 [place] 00 times a Medical day. Branch E11.9. Brand per insurance. Uses ACCU-CHEK machine Lancets Yes [id number] Check Unive rs Misc 5-18 blood ity of 00:00: sugar 2 [place] 00 times a Medical day. Branch E11.9. Brand per insurance. amiodarone 0 Yes [id number] 200mg Take 1 [facility] 200 mg 5-18 tablet by ity of tablet 00:00: mouth in [place] the morning. Branch apixaban 5 0 Yes 5mg Take 1 Unive rs mg tablet 5-18 tablet by ity o f 00:00: mouth in [place] the morning Branch and 1 tablet in the evening. Indication s: ATRIAL FIBRILLATI ON atorvastati 2022-0 Yes [id number] 40mg Take 1 [facility] n 40 mg 5-18 tablet by ity of tablet 00:00: mouth at [place] [address] bedtime. Medical Branch lisinopriL 2022-0 Yes [id number] 2.5mg Take 1 [facility] 2.5 mg 5-18 tablet by ity of tablet 00:00: mouth in [place] 00 the Medical morning. Branch metoprolol 2022-0 Yes [id number] 25mg Take 1 U nivers tartrate 25 5-18 tablet by ity of mg tablet 00:00: mouth in [place] 00 the Medical morning Branch and 1 tablet in the evening. blood sugar Yes [id number] Check U nivers diagnostic 5-18 blood ity of strip 00:00: sugar 2 [place] 00 times a Medical day. Branch E11.9. Brand per insurance. Uses ACCU-CHEK machine Lancets Yes [id number] Check Unive rs Misc 5-18 blood ity of 00:00: sugar 2 [place] 00 times a Medical day. Branch E11.9. Brand per insurance. amiodarone Yes [id number] 200mg Take 1 [facility] 200 mg 5-18 tablet by ity of tablet 00:00: mouth in [place] 00 the Medical morning. Branch apixaban 5 0 Yes 5mg Take 1 Unive rs mg tablet 5-18 tablet by ity o f 00:00: mouth in [place] 00 the Medical morning Branch and 1 tablet in the evening. Indication s: ATRIAL FIBRILLATI ON atorvastati Yes [id number] 40mg Take 1 [facility] n 40 mg 5-18 tablet by ity of tablet 00:00: mouth at [place] 00 bedtime. Medical Branch lisinopriL Yes [id number] 2.5mg Take 1 [facility] 2.5 mg 5-18 tablet by ity of tablet 00:00: mouth in [place] 00 the Medical morning. Branch metoprolol Yes [id number] 25mg Take 1 U nivers tartrate 25 5-18 tablet by ity of mg tablet 00:00: mouth in [facility] s 00 the Medical morning Branch and 1 tablet in the evening. atorvastati 2022- No [id number] 40mg Take 1 [facility] n 40 mg 5-18 08-18 tablet by ity of tablet 00:00: 00:00 mouth at [place] 00 :00 bedtime. Medical Branch lisinopriL 2022-2022- No [id number] 2.5mg Take 1 [facility] 2.5 mg 5-18 08-18 tablet by ity of tablet 00:00: 00:00 mouth in [place] 00 :00 the Medical morning. Branch metoprolol 2022- No [id number] 25mg Take 1 [facility] tartrate 25 5-18 08-18 tablet by it y of mg tablet 00:00: 00:00 mouth in [place] 00 :00 the Medical morning Branch and 1 tablet in the evening. atorvastati 2022-2022- No [id number] 40mg Take 1 [facility] n 40 mg -06 12-18 tablet by ity of tablet 00:00: 00:00 mouth at [place] 00 :00 bedtime. Medical Branch lisinopriL 2022-2022- No [id number] 2.5mg Take 1 [facility] 2.5 mg 09-05-18 tablet by ity of tablet 00:00: 00:00 mouth in [place] 00 :00 the Medical morning. Branch metoprolol 2022- No [id number] 25mg Take 1 [facility] tartrate 25 09-05-18 tablet by it y of mg tablet 00:00: 00:00 mouth in [facility] as 00 :00 the Medical morning Branch and 1 tablet in the evening. amiodarone 2022-2022- No [id number] 200mg Take 1 [facility] 200 mg 09-05-19 tablet by ity of tablet 00:00: 00:00 mouth in [place] 00 :00 the Medical morning. Branch apixaban 5 2022- No 5mg Take 1 Univ ers mg tablet 09-05-19 tablet by ity of 00:00: 00:00 mouth in [place] 00 :00 the Medical morning Branch and 1 tablet in the evening. Indication s: ATRIAL FIBRILLATI ON amiodarone 2022- No [id number] 200mg Take 1 [facility] 200 mg 09-05-19 tablet by ity of tablet 00:00: 00:00 mouth in [place] 00 :00 the Medical morning. Branch apixaban 5 2022- No 5mg Take 1 Univ ers mg tablet 09-05-19 tablet by ity of 00:00: 00:00 mouth in [place] 00 :00 the Medical morning Branch and 1 tablet in the evening. Indication s: ATRIAL FIBRILLATI ON amiodarone 2022-2022- No [id number] 200mg Take 1 [facility] 200 mg 5-18 -19 tablet by ity of tablet 00:00: 00:00 mouth in [place] 00 :00 the Medical morning. Branch apixaban 5 2022- No 5mg Take 1 Univ ers mg tablet 5-05 11-19 tablet by ity of 00:00: 00:00 mouth in [place] 00 :00 the Medical morning Branch and 1 tablet in the evening. Indication s: ATRIAL FIBRILLATI ON amiodarone 2022- No [id number] 200mg Take 1 [facility] 200 mg 09-05-19 tablet by ity of tablet 00:00: 00:00 mouth in [place] 00 :00 the Medical morning. Branch apixaban 5 2022- No 5mg Take 1 Univ ers mg tablet 09-05 tablet by ity of 00:00: 00:00 mouth in [place] 00 :00 the Medical morning Branch and 1 tablet in the evening. Indication s: ATRIAL FIBRILLATI ON blood sugar 2022- No [id number] Check Univers diagnostic 09-05 blood ity of strip 00:00: 00:00 sugar 2 [place] 00 :00 times a Medical day. Branch E11.9. Brand per insurance. Uses ACCU-CHEK machine divalproex 2022- No [id number] 250mg Take 1 Univers ER 250 mg 5-18 05-25 tablet by ity of 24 hr 00:00: 00:00 mouth [place] tablet 00 :00 every 24 Medical ([facility] Branch ur) hours. gabapentin 2022- No [id number] 300mg Take 1 Univers 300 mg 5-18 05-25 capsule by ity of capsule 00:00: 00:00 mouth in [place] 00 :00 the Medical morning Branch and 1 capsule at noon and 1 capsule in the evening. divalproex 2022- No [id number] 250mg Take 1 Univers ER 250 mg 5-18 05-25 tablet by ity of 24 hr 00:00: 00:00 mouth [place] tablet 00 :00 every 24 Medical ([facility] Branch ur) hours. gabapentin 2022-2022- No [id number] 300mg Take 1 Univers 300 mg 5-18 05-25 capsule by ity of capsule 00:00: 00:00 mouth in [place] 00 :00 the Medical morning Branch and 1 capsule at noon and 1 capsule in the evening. divalproex 2022-0 2022- No [id number] 250mg Take 1 Univers ER 250 mg 5-18 05-25 tablet by ity of 24 hr 00:00: 00:00 mouth [place] tablet 00 :00 every 24 Medical (twenty-fo Branch ur) hours. gabapentin 2022-0 2022- No [id number] 300mg Take 1 [facility] 300 mg 5-18 05-25 capsule by ity of capsule 00:00: 00:00 mouth in [place] 00 :00 the Medical morning Branch and 1 capsule at noon and 1 capsule in the evening. divalproex 2022-0 2022- No [id number] 250mg Take 1 Univers ER 250 mg 5-18 05-25 tablet by ity of 24 hr 00:00: 00:00 mouth [place] tablet 00 :00 every 24 Medical (twenty-fo Branch ur) hours. gabapentin 2022-0 2022- No [id number] 300mg Take 1 [facility] 300 mg 5-18 05-25 capsule by ity of capsule 00:00: 00:00 mouth in [place] 00 :00 the Medical morning Branch and 1 capsule at noon and 1 capsule in the evening. calcium 2022-0 2022- No 500mg 500 mg, Unive rs carbonate 08-14 Oral, ity of (OSCAL-500) 08:30: 20:29 ONCE, 1 [place] tablet 500 00 :00 dose, On Medic al mg Wed Branch 08/14/22 at 0330, GELA levETIRAcet 2022-2022- No 1000mg 1,000 mg, Univers am (KEPPRA) 08-14 IV ity of in NACL 07:15: 07:42 Piggyback, [place] as (ISO-OS) 00 :00 ONCE, 1 Medical 1,000 dose, On Branch mg/100 mL [facility] RTU 08/14/22 at 0215, Administer over 15 Minutes, 100 mL NaCl 0.9% 2022-0 2022- No 500mL at 999 Univ ers (NS) bolus 08-14 mL/hr, 500 it y of infusion 05:30: 07:00 mL, IV [place] 500 mL 00 :00 Infusion, Medical ONCE, 1 Branch dose, On 08/14/22 at 0030, STAT divalproex 3-0 Yes [id number] 250mg Take 1 Univers ER 250 mg -26 tablet by ity o f 24 hr 00:00: mouth [place] tablet 00 every 24 Medical (twenty-fo Branch ur) hours. divalproex 2023-0 Yes [id number] 250mg Take 1 Univers ER 250 mg 4-26 tablet by ity o f 24 hr 00:00: mouth [place] tablet 00 every 24 Medical (twenty-fo Branch ur) hours. divalproex 2023-0 Yes [id number] 250mg Take 1 Univers ER 250 mg 4-26 tablet by ity o f 24 hr 00:00: mouth [place] tablet 00 every 24 Medical (twenty-fo Branch ur) hours. divalproex 2023-0 Yes [id number] 250mg Take 1 Univers ER 250 mg 4-26 tablet by ity o f 24 hr 00:00: mouth [place] tablet 00 every 24 Medical (twenty-fo Branch ur) hours. divalproex 2023-0 Yes [id number] 250mg Take 1 Univers ER 250 mg 4-26 tablet by ity o f 24 hr 00:00: mouth [place] tablet 00 every 24 Medical (twenty-fo Branch ur) hours. divalproex 2023-0 Yes [id number] 250mg Take 1 Univers ER 250 mg 4-26 tablet by ity o f 24 hr 00:00: mouth [place] tablet 00 every 24 Medical (twenty-fo Branch ur) hours. divalproex 2023-0 Yes [id number] 250mg Take 1 Univers ER 250 mg 4-26 tablet by ity o f 24 hr 00:00: mouth [place] tablet 00 every 24 Medical (twenty-fo Branch ur) hours. divalproex 2023-0 Yes [id number] 250mg Take 1 Univers ER 250 mg 4-26 tablet by ity o f 24 hr 00:00: mouth [place] tablet 00 every 24 Medical (twenty-fo Branch ur) hours. divalproex 2023-0 Yes [id number] 250mg Take 1 Univers ER 250 mg 4-26 tablet by ity o f 24 hr 00:00: mouth [place] tablet 00 every 24 Medical (twenty-fo Branch ur) hours. divalproex 2023-0 Yes [id number] 250mg Take 1 Univers ER 250 mg 4-26 tablet by ity o f 24 hr 00:00: mouth [place] tablet 00 every 24 Medical (twenty-fo Branch ur) hours. divalproex 2023-0 Yes [id number] 250mg Take 1 Univers ER 250 mg 4-26 tablet by ity o f 24 hr 00:00: mouth [place] tablet 00 every 24 Medical (twenty- Branch ur) hours. divalproex 2022-0 Yes [id number] 250mg Take 1 Univers ER 250 mg 4-26 tablet by ity o f 24 hr 00:00: mouth [place] tablet 00 every 24 Medical (twenty- Branch ur) hours. divalproex 2022-0 3- No [id number] 250mg Take 1 Univers ER 250 mg 4-26 05-18 tablet by ity of 24 hr 00:00: 00:00 mouth [place] tablet 00 :00 every 24 Medical (twenty- Branch ur) hours. lancing Yes 1{each} Take 1 Unive rs device/lanc 4-17 Each in ity o f ets 14:20: the [place] (ACCU-CHEK 29 morning Medica l SOFT DEV and 1 Each Branc h LANCETS at noon MISC) and 1 Each in the evening. lancing Yes 1{each} Take 1 Unive rs device/lanc 4-17 Each in ity o ets 14:20: the [place] (ACCU-CHEK 29 morning Medica l SOFT DEV and 1 Each Branc h LANCETS at noon MISC) and 1 Each in the evening. lancing Yes 1{each} Take 1 Unive rs device/lanc 4-17 Each in ity o ets 14:20: the [place] (ACCU-CHEK 29 morning Medica l SOFT DEV and 1 Each Branc h LANCETS at noon MISC) and 1 Each in the evening. lancing Yes 1{each} Take 1 Unive rs device/lanc 4-17 Each in ity o ets 14:20: the [place] (ACCU-CHEK 29 morning Medica l SOFT DEV and 1 Each Branc h LANCETS at noon MISC) and 1 Each in the evening. lancing Yes 1{each} Take 1 Unive rs device/lanc 4-17 Each in ity o ets 14:20: the [place] (ACCU-CHEK 29 morning Medica l SOFT DEV [...] 1 Unive rs device/lanc 4-17 Each in [facility] ets 14:20: the [place] (ACCU-CHEK 29 morning Medica l SOFT DEV and 1 Each Branc h LANCETS at noon MISC) and 1 Each in the evening. lancing 0 Yes 1{each} Take 1 Unive rs device/lanc 4-17 Each in [facility] ets 14:20: the [place] (ACCU-CHEK 29 morning Medica l SOFT DEV and 1 Each Branc h LANCETS at noon MISC) and 1 Each in the evening. lancing Yes 1{each} Take 1 Unive rs device/lanc 4-17 Each in [facility] ets 14:20: the [place] (ACCU-CHEK 29 morning Medica l SOFT DEV and 1 Each Branc h LANCETS at noon MISC) and 1 Each in the evening. lancing Yes 1{each} Take 1 Unive rs device/lanc 4-17 Each in [facility] ets 14:20: the [place] (ACCU-CHEK 29 morning Medica l SOFT DEV and 1 Each Branc h LANCETS at noon MISC) and 1 Each in the evening. lancing Yes 1{each} Take 1 Unive rs device/lanc 4-17 Each in [facility] ets 14:20: the [place] (ACCU-CHEK 29 morning Medica l SOFT DEV and 1 Each Branc h LANCETS at noon MISC) and 1 Each in the evening. lancing Yes 1{each} Take 1 [facility] the [place] (ACCU-CHEK 29 morning Medica l SOFT DEV and 1 Each Branc h LANCETS at noon MISC) and 1 Each in the evening. lancing Yes 1{each} Take 1 Unive rs device/lanc 4-17 Each in [facility] ets 14:20: the [place] (ACCU-CHEK 29 morning [...] 1 [facility] the [place] (ACCU-CHEK 29 morning Medica l SOFT DEV and 1 Each Branc h LANCETS at noon MISC) and 1 Each in the evening. lancing Yes 1{each} Take 1 Unive rs device/lanc 4-17 Each in [facility] ets 14:20: the [place] (ACCU-CHEK 29 morning Medica l SOFT DEV and 1 Each Branc h LANCETS at noon MISC) and 1 Each in the evening. lancing Yes 1{each} Take 1 [facility]: the [place] (ACCU-CHEK 29 morning Medica l SOFT DEV and 1 Each Branc h LANCETS at noon MISC) and 1 Each in the evening. lancing Yes 1{each} Take 1 Unive rs device/lanc 4-17 Each in [facility] ets 14:20: the [place] (ACCU-CHEK 29 morning Medica l SOFT DEV and 1 Each Branc h LANCETS at noon MISC) and 1 Each in the evening. lancing Yes 1{each} Take 1 [facility] the [place] (ACCU-CHEK 29 morning Medica l SOFT DEV and 1 Each Branc h LANCETS at noon MISC) and 1 Each in the evening. lancing Yes 1{each} Take 1 Unive rs device/lanc 4-17 Each in ity [facility] ets 14:20: the [place] (ACCU-CHEK 29 morning Medica l SOFT DEV and 1 Each Branc h LANCETS at noon MISC) and 1 Each in the evening. lancing 2022-0 Yes 1{each} Take 1 Unive rs device/lanc 4-17 Each in ity o ets 14:20: the [place] (ACCU-CHEK 29 morning Medica l SOFT DEV and 1 Each Branc h LANCETS at on [facility]) and 1 Each in the evening. lancing 2022-0 Yes 1{each} Take 1 Unive rs device/lanc 4-17 Each in ity [facility] ets 14:20: the [place] (ACCU-CHEK 29 morning Medica l SOFT DEV and 1 Each Branc h LANCETS at [facility]) and 1 Each in the evening. lancing 2022-0 Yes 1{each} Take 1 Unive rs device/lanc 4-17 Each in ity [facility] ets 14:20: the [place] (ACCU-CHEK 29 morning Medica l SOFT DEV and 1 Each Branc h LANCETS at [facility]) and 1 Each in the evening. lisinopriL 2022- 202- No 2.5mg Take 1 Uni vers 2.5 mg 4-17 -17 tablet by ity of tablet 14:01: 00:00 mouth in [place] 18 :00 the Medical morning. Branch gabapentin 2022-2022- No 300mg Take 1 Uni vers 300 mg 4-17 -17 capsule by ity of capsule 14:01: 00:00 mouth in [place] 18 :00 the Medical morning. Branch atorvastati 2022-2022- No 40mg Take 1 Uni vers n 40 mg 4-17 -17 tablet by ity of tablet 14:01: 00:00 mouth at [place] 18 :00 bedtime. Medical Branch apixaban 5 2022-0 2022- No 5mg Take 1 Univ ers mg tablet -05 08-17 tablet by ity of 14:01: 00:00 mouth [place] 18 :00 every 12 Medical (twelve) Branch hours. metoprolol 2022-0 2022- No 25mg Take 1 Univ ers tartrate 25 4-17 -17 tablet by it y of mg tablet 14:01: 00:00 mouth in [facility] as 18 :00 the Medical [...] ity of tablet 14:01: 00:00 mouth at [place] 18 :00 bedtime. Medical Branch apixaban 5 2022-0 2023- No 5mg Take 1 Univ ers mg tablet 4-17 04-17 tablet by ity of 14:: 00:00 mouth [place] 18 :00 every 12 Medical (twelve) Branch hours. metoprolol 2022-0 3- No 25mg Take 1 Univ ers tartrate 25 4-17 04-17 tablet by it y of mg tablet 14:01: 00:00 mouth in [facility] as 18 :00 the Medical [...] ity of capsule 14:01: 00:00 mouth in [place] 18 :00 the Medical morning. Branch atorvastati 3-0 2023- No 40mg Take 1 Uni vers n 40 mg 4-17 04-17 tablet by ity of tablet 14:01: 00:00 mouth at [place] 18 :00 bedtime. Medical Branch apixaban 5 2022-0 3- No 5mg Take 1 Univ ers mg tablet 4-17 04-17 tablet by ity of 14:01: 00:00 mouth [place] 18 :00 every 12 Medical (twelve) Branch hours. metoprolol 2022-0 3- No 25mg Take 1 Univ ers tartrate 25 4-17 04-17 tablet by it y of mg tablet 14:01: 00:00 mouth in [facility] as 18 :00 the Medical morning Branch and 1 tablet in the evening. SERTraline 2022- No 25mg Take 1 Univ ers 25 mg 4-17 04-17 tablet by ity of tablet 14:01: 00:00 mouth in [place] 12 :00 the Medical morning. Branch SERTraline 2022- No 25mg Take 1 Univ ers 25 mg 4-17 -17 tablet by ity of tablet 14:01: 00:00 mouth in [place] 12 :00 the Medical morning. Branch SERTraline 2022- No 25mg Take 1 Univ ers 25 mg 4-17 04-17 tablet by ity of tablet 14:01: 00:00 mouth in [place] 12 :00 the Medical morning. Branch Miscellaneo [...] us Medical 4-[address] [facility] [place]: s - BKA [place]has as 61 Medical Branch insulin NPH 2023-0 Yes inject [...] skin. Abdi (HUMULIN N 22 Unsure of [facility] [place]) what kind Branch of humulin insulin he takes SEMGLEE,INS 2023-0 Yes inject Univ ers ULIN 4-17 under the ity of GLARGINE-YF 13:33: skin. As AURELIO Quintanilla 22 directed Medical Branch insulin NPH 2022-0 Yes inject Univ ers human 4-17 under the ity of isophane 13:33: skin. Abdi (HUMULIN N 22 Unsure of Medi [place]) what kind Branch of humulin insulin he takes SEMGLEE,INS 2023-0 Yes inject Univ ers ULIN 4-17 under the ity of GLARGINE-YF 13:33: skin. As AURELIO [place] 22 directed Medical Branch insulin NPH 2022-0 Yes inject Univ ers human 4-17 under the ity of isophane 13:33: skin. Abdi (HUMULIN N 22 Unsure of [facility] [place]) what kind Branch of humulin insulin he takes SEMGLEE,INS 2023-0 Yes inject Univ ers ULIN 4-17 under the ity of GLARGINE-YF 13:33: skin. As AURELIO [place]an[place] 22 directed Medical Branch insulin NPH 2022-0 Yes inject Univ ers human 4-17 under the ity of isophane 13:33: skin. Abdi (HUMULIN N 22 Unsure of [facility] [place]) what kind Branch of humulin insulin he takes SEMGLEE,INS 2023-0 Yes inject Univ ers ULIN 4-17 under the ity of GLARGINE-YF 13:33: skin. As AURELIO Quintan[place] 22 directed Medical Branch insulin NPH 2022-0 Yes inject Univ ers human 4-17 under the ity of isophane 13:33: skin. Abdi (HUMULIN N 22 Unsure of [facility] [place]) what kind Branch of humulin insulin he takes SEMGLEE,INS 2023-0 Yes inject Univ ers ULIN 4-17 under the ity of GLARGINE-YF 13:33: skin. As AURELIO Quintanilla 22 directed Medical Branch insulin NPH 2022-0 Yes inject Univ ers human 4-17 under the ity of isophane 13:33: skin. Abdi (HUMULIN N 22 Unsure of Medi [place]) what kind Branch of humulin insulin he takes SEMGLEE,INS 2023-0 Yes inject Univ ers ULIN 4-17 under the ity of GLARGINE-YF 13:33: skin. As AURELIO Quintanilla 22 directed Medical Branch insulin NPH 2022-0 Yes inject Univ ers human 4-17 under the ity of isophane 13:33: skin. Abdi (HUMULIN N 22 Unsure of Medi [place]) what kind Branch of humulin insulin he takes SEMGLEE,INS 2023-0 Yes inject Univ ers ULIN 4-17 under the ity of GLARGINE-YF 13:33: skin. As AURELIO Quintanilla 22 directed Medical Branch insulin NPH 2022-0 Yes inject Univ ers human 4-17 under the ity of isophane 13:33: skin. Abdi (HUMULIN N 22 Unsure of [facility] [place]) what kind Branch of humulin insulin he takes SEMGLEE,INS 2023-0 Yes inject Univ ers ULIN 4-17 under the ity of GLARGINE-YF 13:33: skin. As AURELIO Quintanilla 22 directed Medical Branch insulin NPH 2022-0 Yes inject Univ ers human 4-17 under the ity of isophane 13:33: skin. Abdi (HUMULIN N 22 Unsure of Medi [place]) what kind Branch of humulin insulin he takes SEMGLEE,INS 2023-0 Yes inject Univ ers ULIN 4-17 under the ity of GLARGINE-YF 13:33: skin. As AURELIO [place] 22 directed Medical Branch insulin NPH 3-0 Yes inject Univ ers human 4-17 under the ity of isophane 13:33: skin. bAdi (HUMULIN N 22 Unsure of Medi [place]) what kind Branch of humulin insulin he takes SEMGLEE,INS 2023-0 Yes inject Univ ers ULIN 4-17 under the ity of GLARGINE-YF 13:33: skin. As AURELIO Quintanilla 22 directed Medical Branch insulin NPH 3-0 Yes inject Univ ers human 4-17 under the ity of isophane 13:33: skin. Abdi (HUMULIN N 22 Unsure of Medi [place]) what kind Branch of humulin insulin he takes SEMGLEE,INS 2023-0 Yes inject Univ ers ULIN 4-17 under the ity of GLARGINE-YF 13:33: skin. As AURELIO Quintanilla 22 directed Medical Branch insulin NPH 2022-0 Yes inject Univ ers human 4-17 under the ity of isophane 13:33: skin. Abdi (HUMULIN N 22 Unsure of [facility]) what kind Branch of humulin insulin he takes SEMGLEE,INS 2023-0 Yes inject Univ ers ULIN 4-17 under the ity of GLARGINE-YF 13:33: skin. As AURELIO Quintanilla 22 directed Medical Branch insulin NPH 2022-0 Yes inject Univ ers human 4-17 under the ity of isophane 13:33: skin. Abdi (HUMULIN N 22 Unsure of [facility]) what kind Branch of humulin insulin he takes SEMGLEE,INS 2023-0 Yes inject Univ ers ULIN 4-17 under the ity of GLARGINE-YF 13:33: skin. As AURELIO Quintanilla 22 directed Medical Branch insulin NPH 2022-0 Yes inject Univ ers human 4-17 under the ity of isophane 13:33: skin. Abdi (HUMULIN N 22 Unsure of [facility]) what kind Branch of humulin insulin he takes SEMGLEE,INS 2023-0 Yes inject Univ ers ULIN 4-17 under the ity of GLARGINE-YF 13:33: skin. As AURELIO Quintanilla 22 directed Medical Branch insulin NPH 2022-0 Yes inject Univ ers human 4-17 under the ity of isophane 13:33: skin. Abdi (HUMULIN N 22 Unsure of [facility]) what kind Branch of humulin insulin he takes SEMGLEE,INS 2023-0 Yes inject Univ ers ULIN 4-17 under the ity of GLARGINE-YF 13:33: skin. As AURELIO Quintanilla 22 directed Medical Branch insulin NPH 3-0 Yes inject Univ ers human 4-17 under the ity of isophane 13:33: skin. Abdi (HUMULIN N 22 Unsure of [facility]) what kind Branch of humulin insulin he takes SEMGLEE,INS 2023-0 Yes inject Univ ers ULIN 4-17 under the ity of GLARGINE-YF 13:33: skin. As AURELIO Quintanilla 22 directed Medical Branch insulin NPH 2022-0 Yes inject Univ ers human 4-17 under the ity of isophane 13:33: skin. Abdi (HUMULIN N 22 Unsure of Medi [place]) what kind Branch of humulin insulin he takes SEMGLEE,INS 2023-0 Yes inject Univ ers ULIN 4-17 under the ity of GLARGINE-YF 13:33: skin. As AURELIO Quintanilla 22 directed Medical Branch insulin NPH 2022-0 Yes inject Univ ers human 4-17 under the ity of isophane 13:33: skin. Abdi (HUMULIN N 22 Unsure of [facility] [place]) what kind Branch of humulin insulin he takes SEMGLEE,INS 2023-0 Yes inject Univ ers ULIN 4-17 under the ity of GLARGINE-YF 13:33: skin. As AURELIO Quintanilla 22 directed Medical Branch insulin NPH 2022-0 Yes inject Univ ers human 4-17 under the ity of isophane 13:33: skin. Abdi (HUMULIN N 22 Unsure of [facility] [place]) what kind Branch of humulin insulin he takes SEMGLEE,INS 2023-0 Yes inject Univ ers ULIN 4-17 under the ity of GLARGINE-YF 13:33: skin. As AURELIO Quintanilla 22 directed Medical Branch insulin NPH 2022-0 Yes inject Univ ers human 4-17 under the ity of isophane 13:33: skin. Abdi (HUMULIN N 22 Unsure of Medi [place]) what kind Branch of humulin insulin he takes SEMGLEE,INS 2023-0 Yes inject Univ ers ULIN 4-17 under the ity of GLARGINE-YF 13:33: skin. As AURELIO Quintanilla 22 directed Medical Branch insulin NPH 3-0 Yes inject Univ ers human 4-17 under the ity of isophane 13:33: skin. Abdi (HUMULIN N 22 Unsure of [facility] [place]) what kind Branch of humulin insulin he takes SEMGLEE,INS 2023-0 Yes inject Univ ers ULIN 4-17 under the ity of GLARGINE-YF 13:33: skin. As AURELIO Quintanilla 22 directed Medical Branch insulin NPH 2022-0 Yes inject Univ ers human 4-17 under the ity of isophane 13:33: skin. Abdi (HUMULIN N 22 Unsure of Medi [place]) what kind Branch of humulin insulin he takes SEMGLEE,INS 2023-0 Yes inject Univ ers ULIN 4-17 under the ity of GLARGINE-YF 13:33: skin. As AURELIO Quintanilla 22 directed Medical Branch insulin NPH 2022-0 Yes inject Univ ers human 4-17 under the ity of isophane 13:33: skin. Abdi (HUMULIN N 22 Unsure of [facility] [place]) what kind Branch of humulin insulin he takes SEMGLEE,INS 3-0 Yes inject Univ ers ULIN 4-17 under the ity of GLARGINE-YF 13:33: skin. As AURELIO Quintanilla 22 directed Medical Branch insulin NPH 2022-0 Yes inject Univ ers human 4-17 under the ity of isophane 13:33: skin. Abdi (HUMULIN N 22 Unsure of [facility] [place]) what kind Branch of humulin insulin he takes SEMGLEE,INS 3-0 Yes inject Univ ers ULIN 4-17 under the ity of GLARGINE-YF 13:33: skin. As AURELIO Quintanilla 22 directed Medical Branch insulin NPH 2022-0 Yes inject Univ ers human 4-17 under the ity of isophane 13:33: skin. Abdi (HUMULIN N 22 Unsure of [facility] [place]) what kind Branch of humulin insulin he takes SEMGLEE,INS 2023-0 Yes inject Univ ers ULIN 4-17 under the ity of GLARGINE-YF 13:33: skin. As AURELIO Quintanilla 22 directed Medical Branch insulin NPH 2022-0 Yes inject Univ ers human 4-17 under the ity of isophane 13:33: skin. Abdi (HUMULIN N 22 Unsure of Medi [place]) what kind Branch of humulin insulin he [...] N 22 Unsure of Medi [place]) what kind Branch of humulin insulin he takes insulin NPH 2023-0 Yes inject Univ ers human 4-17 under the ity of isophane 13:33: skin. Abdi (HUMULIN N 22 Unsure of Medi [place]) what kind Branch of humulin insulin he takes insulin NPH 2023-0 Yes inject Univ ers human 4-17 under the ity of isophane 13:33: skin. Abdi (HUMULIN N 22 Unsure of Medi [place]) what kind Branch of humulin insulin he takes insulin NPH 2023-0 Yes inject Univ ers human 4-17 under the ity of isophane 13:33: skin. Abdi (HUMULIN N 22 Unsure of [place]i [place]) what kind Branch of humulin insulin he takes insulin NPH 2023-0 Yes inject Univ ers human 4-17 under the ity of isophane 13:33: skin. Abdi (HUMULIN N 22 Unsure of [place]i [place]) what kind Branch of humulin insulin he takes insulin NPH 2023-0 Yes inject Univ ers human 4-17 under the ity of isophane 13:33: skin. Abdi (HUMULIN N 22 Unsure of [place]i [place]) what kind Branch of humulin insulin he takes insulin NPH 2023-0 Yes inject Univ ers human 4-17 under the ity of isophane 13:33: skin. Abdi (HUMULIN N 22 Unsure of [place]i [place]) what kind Branch of humulin insulin he [...] by ity of capsule 13:23: mouth 4 [place] [address] (four) Medical times Branch daily. cephALEXin 2023-0 Yes 500mg Take 1 Univ ers 500 mg 4-17 capsule by ity of capsule 13:23: mouth 4 [place] 56 (four) Medical times Branch daily. cephALEXin 2023-0 Yes 500mg Take 1 Univ ers 500 mg 4-17 capsule by ity of capsule 13:23: mouth 4 [place] 56 (four) Medical times Branch daily. cephALEXin 2023-0 Yes 500mg Take 1 Univ ers 500 mg 4-17 capsule by ity of capsule 13:23: mouth 4 [place] 56 (four) Medical times Branch daily. cephALEXin 2023-0 Yes 500mg Take 1 Univ ers 500 mg 4-17 capsule by ity of capsule 13:23: mouth 4 [place] [address] (four) Medical times Branch daily. cephALEXin 2023-0 Yes 500mg Take 1 Univ ers 500 mg 4-17 capsule by ity of capsule 13:23: mouth 4 [place] [address] (four) Medical times Branch daily. cephALEXin 2023-0 Yes 500mg Take 1 Univ ers 500 mg 4-17 capsule by ity of capsule 13:23: mouth 4 [place] [address] (four) Medical times Branch daily. cephALEXin 2023-0 Yes 500mg Take 1 Univ ers 500 mg 4-17 capsule by ity of capsule 13:23: mouth 4 [place] 56 (four) Medical times Branch daily. cephALEXin 2023-0 Yes 500mg Take 1 Univ ers 500 mg 4-17 capsule by ity of capsule 13:23: mouth 4 [place] 56 (four) Medical times Branch daily. cephALEXin 2023-0 Yes 500mg Take 1 Univ ers 500 mg 4-17 capsule by ity of capsule 13:23: mouth 4 [place] 56 (four) Medical times Branch daily. cephALEXin 2023-0 Yes 500mg Take 1 Univ ers 500 mg 4-17 capsule by ity of capsule 13:23: mouth 4 [place] [address] (four) Medical times Branch daily. cephALEXin 2023-0 Yes 500mg Take 1 [facility] 500 mg 4-17 capsule by [facility] of capsule 13:23: mouth 4 [place] 56 (four) Medical times Branch daily. cephALEXin 2023-0 Yes 500mg Take 1 [facility] 500 mg 4-17 capsule by [facility] of capsule 13:23: mouth 4 [place] [address] [facility] Medical times Branch daily. cephALEXin 2023-0 Yes 500mg Take 1 [facility] 500 mg 4-17 capsule by it[facility] of capsule 13:23: mouth 4 [place] [address] (four) Medical times Branch daily. cephALEXin 2023-0 Yes 500mg Take 1 [facility] 500 mg 4-17 capsule by it[facility] of capsule 13:23: mouth 4 [place] [address] (four) Medical times Branch daily. cephALEXin 2023-0 Yes 500mg Take 1 [facility] 500 mg 4-17 capsule by it[facility] of capsule 13:23: mouth 4 [place] [address] (four) Medical times Branch daily. cephALEXin 2023-0 Yes 500mg Take 1 [facility] 500 mg 4-17 capsule by [facility] of capsule 13:23: mouth 4 [place] [address] (four) Medical times Branch daily. cephALEXin 2023-0 Yes 500mg Take 1 [facility] 500 mg 4-17 capsule by it[facility] of capsule 13:23: mouth 4 [place] [address] (four) Medical times Branch daily. cephALEXin 2023-0 Yes 500mg Take 1 [facility] 500 mg 4-17 capsule by [facility] of capsule 13:23: mouth 4 [place] [address] (four) Medical times Branch daily. cephALEXin 2023-0 Yes 500mg Take 1 [facility] 500 mg 4-17 capsule by [facility] of capsule 13:23: mouth 4 [place] [address] [facility]) Medical times Branch daily. cephALEXin 2023-0 Yes 500mg Take 1 [facility] 500 mg 4-17 capsule by [facility] of capsule 13:23: mouth 4 [place] [address] ([facility]) Medical times Branch daily. gabapentin 2023-0 Yes [id number] 300mg Take 1 [facility] 300 mg 4-17 capsule by [facility] of capsule 00:00: mouth in [place] [address] the Medical morning Branch and 1 capsule at noon and 1 capsule in the evening. amiodarone 2023-0 Yes [id number] 200mg Take 1 [facility] 200 mg 4-17 tablet by it[facility] of tablet 00:00: mouth in [place] [address] the Medical morning. Branch apixaban 5 2023-0 Yes 5mg Take 1 [facility] rs mg tablet 4-17 tablet by ity o f 00:00: mouth in [place] [address] the Medical morning Branch and 1 tablet in the evening. Indication s: ATRIAL FIBRILLATI ON atorvastati 2023-0 Yes [id number] 40mg Take 1 [facility] n 40 mg 4-17 tablet by it[facility] of tablet 00:00: mouth at [place] [address] bedtime. Medical Branch SERTraline Yes [id number] 100mg Take 1 [facility] 100 mg 4-17 tablet by it[facility] of tablet 00:00: mouth in [place] the morning. Branch lisinopriL Yes [id number] 2.5mg Take 1 [facility] 2.5 mg 4-17 tablet by it[facility] of tablet 00:00: mouth in [place] the morning. Branch metoprolol Yes [id number] 25mg Take 1 [facility] nivers tartrate 25 4-17 tablet by ity of mg tablet 00:00: mouth in [facility] 00 the morning Branch and 1 tablet in the evening. blood sugar Yes [id number] Check U nivers diagnostic 4-17 blood ity of strip 00:00: sugar 2 [place] 00 times a Medical day. Branch E11.9. Brand per insurance. Uses ACCU-CHEK machine Lancets Yes [id number] Check Unive rs Misc 4-17 blood ity of 00:00: sugar 2 [place] times a Medical day. Branch E11.9. Brand per insurance. gabapentin Yes [id number] 300mg Take 1 [facility] 300 mg 4-17 capsule by ity of capsule 00:00: mouth in [place] the morning Branch and 1 capsule at noon and 1 capsule in the evening. amiodarone Yes [id number] 200mg Take 1 [facility] 200 mg 4-17 tablet by ity of tablet 00:00: mouth in [place] the morning. Branch apixaban 5 Yes 5mg Take 1 [facility] rs mg tablet 4-17 tablet by ity o f 00:00: mouth in [place] the morning Branch and 1 tablet in the evening. Indication s: ATRIAL FIBRILLATI ON atorvastati Yes [id number] 40mg Take 1 [facility] n 40 mg 4-17 tablet by ity of tablet 00:00: mouth at [place] [address] bedtime. Medical Branch SERTraline Yes [id number] 100mg Take 1 [facility] 100 mg 4-17 tablet by ity of tablet 00:00: mouth in [place] 00 the morning. Branch lisinopriL 0 Yes [id number] 2.5mg Take 1 [facility] 2.5 mg 4-17 tablet by ity of tablet 00:00: mouth in [place] the morning. Branch metoprolol Yes [id number] 25mg Take 1 [facility] nivers tartrate 25 4-17 tablet by ity of mg tablet 00:00: mouth in [facility] 00 the morning Branch and 1 tablet in the evening. blood sugar 2022-0 Yes [id number] Check U nivers diagnostic 4-17 blood ity of strip 00:00: sugar 2 [place] times a Medical day. Branch E11.9. Brand per insurance. Uses ACCU-CHEK machine Lancets Yes [id number] Check Unive rs Misc 4-17 blood ity of 00:00: sugar 2 [place] times a Medical day. Branch E11.9. Brand per insurance. gabapentin Yes [id number] 300mg Take 1 [facility] 300 mg 4-17 capsule by ity of capsule 00:00: mouth in [place] 00 the morning Branch and 1 capsule at noon and 1 capsule in the evening. amiodarone Yes [id number] 200mg Take 1 [facility] 200 mg 4-17 tablet by ity of tablet 00:00: mouth in [place] the morning. Branch apixaban 5 0 Yes 5mg Take 1 [facility] rs mg tablet 4-17 tablet by ity o f 00:00: mouth in [place] the morning Branch and 1 tablet in the evening. Indication s: ATRIAL FIBRILLATI ON atorvastati 2022- Yes [id number] 40mg Take 1 [facility] n 40 mg 4-17 tablet by ity of tablet 00:00: mouth at [place] [address] bedtime. Medical Branch SERTraline 0 Yes [id number] 100mg Take 1 [facility] 100 mg 4-17 tablet by ity of tablet 00:00: mouth in [place] 00 the morning. Branch lisinopriL 2022-0 Yes [id number] 2.5mg Take 1 [facility] 2.5 mg 4-17 tablet by ity of tablet 00:00: mouth in [place] 00 the morning. Branch metoprolol 2022-0 Yes [id number] 25mg Take 1 U nivers tartrate 25 4-17 tablet by ity of mg tablet 00:00: mouth in [facility] the Medical morning Branch and 1 tablet in the evening. blood sugar 2022-0 Yes [id number] Check U nivers diagnostic 4-17 blood ity of strip 00:00: sugar 2 [place] times a Medical day. Branch E11.9. Brand per insurance. Uses ACCU-CHEK machine Lancets 0 Yes [id number] Check Unive rs Misc 4-17 blood ity of 00:00: sugar 2 [place] times a Medical day. Branch E11.9. Brand per insurance. gabapentin 0 Yes [id number] 300mg Take 1 [facility] 300 mg 4-17 capsule by ity of capsule 00:00: mouth in [place] the morning Branch and 1 capsule at noon and 1 capsule in the evening. amiodarone Yes [id number] 200mg Take 1 [facility] 200 mg 4-17 tablet by ity of tablet 00:00: mouth in [place] the morning. Branch apixaban 5 0 Yes 5mg Take 1 [facility] rs mg tablet 4-17 tablet by ity o f 00:00: mouth in [place] the morning Branch and 1 tablet in the evening. Indication s: ATRIAL FIBRILLATI ON atorvastati Yes [id number] 40mg Take 1 [facility] n 40 mg 4-17 tablet by ity of tablet 00:00: mouth at [place] [address] bedtime. Medical Branch SERTraline Yes [id number] 100mg Take 1 [facility] 100 mg 4-17 tablet by ity of tablet 00:00: mouth in [place] the morning. Branch lisinopriL Yes [id number] 2.5mg Take 1 [facility] 2.5 mg 4-17 tablet by ity of tablet 00:00: mouth in [place] 00 the morning. Branch metoprolol 0 Yes [id number] 25mg Take 1 U nivers tartrate 25 4-17 tablet by ity of mg tablet 00:00: mouth in [facility] the morning Branch and 1 tablet in the evening. blood sugar 2022-0 Yes [id number] Check U nivers diagnostic 4-17 blood ity of strip 00:00: sugar 2 [place] 00 times a Medical day. Branch E11.9. Brand per insurance. Uses ACCU-CHEK machine Lancets 2023-0 Yes [id number] Check Unive rs Misc 4-17 blood ity of 00:00: sugar 2 [place] times a Medical day. Branch E11.9. Brand per insurance. gabapentin 2022-0 Yes [id number] 300mg Take 1 [facility] 300 mg 4-17 capsule by ity of capsule 00:00: mouth in [place] the morning Branch and 1 capsule at noon and 1 capsule in the evening. amiodarone 0 Yes [id number] 200mg Take 1 [facility] 200 mg 4-17 tablet by ity of tablet 00:00: mouth in [place] the morning. Branch apixaban 5 0 Yes 5mg Take 1 [facility] rs mg tablet 4-17 tablet by ity o f 00:00: mouth in [place] the morning Branch and 1 tablet in the evening. Indication s: ATRIAL FIBRILLATI ON atorvastati Yes [id number] 40mg Take 1 [facility] n 40 mg 4-17 tablet by ity of tablet 00:00: mouth at [place] [address] bedtime. Medical Branch SERTraline 0 Yes [id number] 100mg Take 1 [facility] 100 mg 4-17 tablet by ity of tablet 00:00: mouth in [place] the morning. Branch lisinopriL 0 Yes [id number] 2.5mg Take 1 [facility] 2.5 mg 4-17 tablet by ity of tablet 00:00: mouth in [place] the morning. Branch metoprolol 0 Yes [id number] 25mg Take 1 U nivers tartrate 25 4-17 tablet by ity of mg tablet 00:00: mouth in [facility] the morning Branch and 1 tablet in the evening. blood sugar 2022-0 Yes [id number] Check U nivers diagnostic 4-17 blood ity of strip 00:00: sugar 2 [place] 00 times a Medical day. Branch E11.9. Brand per insurance. Uses ACCU-CHEK machine Lancets 2022-0 Yes [id number] Check Unive rs Misc 4-17 blood ity of 00:00: sugar 2 [place] times a Medical day. Branch E11.9. Brand per insurance. gabapentin 2022-0 Yes [id number] 300mg Take 1 [facility] 300 mg 4-17 capsule by ity of capsule 00:00: mouth in [place] the morning Branch and 1 capsule at noon and 1 capsule in the evening. amiodarone Yes [id number] 200mg Take 1 [facility] 200 mg 4-17 tablet by ity of tablet 00:00: mouth in [place] 00 the morning. Branch apixaban 5 2022-0 Yes 5mg Take 1 [facility] rs mg tablet 4-17 tablet by ity o f 00:00: mouth in [place] the morning Branch and 1 tablet in the evening. Indication s: ATRIAL FIBRILLATI ON atorvastati 0 Yes [id number] 40mg Take 1 [facility] n 40 mg 4-17 tablet by ity of tablet 00:00: mouth at [place] [address] bedtime. Medical Branch SERTraline 0 Yes [id number] 100mg Take 1 [facility] 100 mg 4-17 tablet by ity of tablet 00:00: mouth in [place] 00 the morning. Branch lisinopriL Yes [id number] 2.5mg Take 1 [facility] 2.5 mg 4-17 tablet by ity of tablet 00:00: mouth in [place] the morning. Branch metoprolol Yes [id number] 25mg Take 1 U nivers tartrate 25 4-17 tablet by ity of mg tablet 00:00: mouth in [facility] 00 the morning Branch and 1 tablet in the evening. blood sugar 0 Yes [id number] Check U nivers diagnostic 4-17 blood ity of strip 00:00: sugar 2 [place] 00 times a Medical day. Branch E11.9. Brand per insurance. Uses ACCU-CHEK machine Lancets Yes [id number] Check Unive rs Misc 4-17 blood ity of 00:00: sugar 2 [place] 00 times a Medical day. Branch E11.9. Brand per insurance. gabapentin 0 Yes [id number] 300mg Take 1 [facility] 300 mg 4-17 capsule by ity of capsule 00:00: mouth in [place] 00 the morning Branch and 1 capsule at noon and 1 capsule in the evening. amiodarone 2022-0 Yes [id number] 200mg Take 1 [facility] 200 mg 4-17 tablet by ity of tablet 00:00: mouth in [place] 00 the morning. Branch apixaban 5 2022-0 Yes 5mg Take 1 [facility] rs mg tablet 4-17 tablet by ity o f 00:00: mouth in [place] 00 the Medical morning Branch and 1 tablet in the evening. Indication s: ATRIAL FIBRILLATI ON atorvastati Yes [id number] 40mg Take 1 [facility] n 40 mg 4-17 tablet by ity of tablet 00:00: mouth at [place] [address] bedtime. Medical Branch SERTraline Yes [id number] 100mg Take 1 [facility] 100 mg 4-17 tablet by ity of tablet 00:00: mouth in [place] 00 the morning. Branch lisinopriL Yes [id number] 2.5mg Take 1 [facility] 2.5 mg 4-17 tablet by ity of tablet 00:00: mouth in [place] 00 the morning. Branch metoprolol Yes [id number] 25mg Take 1 U nivers tartrate 25 4-17 tablet by ity of mg tablet 00:00: mouth in [facility] 00 the morning Branch and 1 tablet in the evening. blood sugar Yes [id number] Check U nivers diagnostic 4-17 blood ity of strip 00:00: sugar 2 [place] 00 times a Medical day. Branch E11.9. Brand per insurance. Uses ACCU-CHEK machine Lancets Yes [id number] Check Unive rs Misc 4-17 blood ity of 00:00: sugar 2 [place] times a Medical day. Branch E11.9. Brand per insurance. gabapentin Yes [id number] 300mg Take 1 [facility] 300 mg 4-17 capsule by ity of capsule 00:00: mouth in [place] 00 the morning Branch and 1 capsule at noon and 1 capsule in the evening. amiodarone Yes [id number] 200mg Take 1 [facility] 200 mg 4-17 tablet by ity of tablet 00:00: mouth in [place] 00 the morning. Branch apixaban 5 0 Yes 5mg Take 1 Unive rs mg tablet 4-17 tablet by ity o f 00:00: mouth in [place] 00 the morning Branch and 1 tablet in the evening. Indication s: ATRIAL FIBRILLATI ON atorvastati Yes [id number] 40mg Take 1 [facility] n 40 mg 4-17 tablet by ity of tablet 00:00: mouth at [place] [address] bedtime. Medical Branch SERTraline Yes [id number] 100mg Take 1 [facility] 100 mg 4-17 tablet by ity of tablet 00:00: mouth in [place] the morning. Branch lisinopriL 0 Yes [id number] 2.5mg Take 1 [facility] 2.5 mg 4-17 tablet by ity of tablet 00:00: mouth in [place] the morning. Branch metoprolol Yes [id number] 25mg Take 1 U nivers tartrate 25 4-17 tablet by ity of mg tablet 00:00: mouth in [facility] the morning Branch and 1 tablet in the evening. blood sugar 0 Yes [id number] Check U nivers diagnostic 4-17 blood ity of strip 00:00: sugar 2 [place] 00 times a Medical day. Branch E11.9. Brand per insurance. Uses ACCU-CHEK machine Lancets Yes [id number] Check Unive rs Misc 4-17 blood ity of 00:00: sugar 2 [place] times a Medical day. Branch E11.9. Brand per insurance. gabapentin Yes [id number] 300mg Take 1 [facility] 300 mg 4-17 capsule by ity of capsule 00:00: mouth in [place] the morning Branch and 1 capsule at noon and 1 capsule in the evening. amiodarone Yes [id number] 200mg Take 1 [facility] 200 mg 4-17 tablet by ity of tablet 00:00: mouth in [place] the morning. Branch apixaban 5 0 Yes 5mg Take 1 Un[facility] rs mg tablet 4-17 tablet by ity o f 00:00: mouth in [place] the morning Branch and 1 tablet in the evening. Indication s: ATRIAL FIBRILLATI ON atorvastati 0 Yes [id number] 40mg Take 1 [facility] n 40 mg 4-17 tablet by ity of tablet 00:00: mouth at [place] [address] bedtime. Medical Branch SERTraline Yes [id number] 100mg Take 1 [facility] 100 mg 4-17 tablet by ity of tablet 00:00: mouth in [place] the morning. Branch lisinopriL Yes [id number] 2.5mg Take 1 [facility] 2.5 mg 4-17 tablet by ity of tablet 00:00: mouth in [place] the Medical morning. Branch metoprolol 0 Yes [id number] 25mg Take 1 U nivers tartrate 25 4-17 tablet by ity of mg tablet 00:00: mouth in [facility] the morning Branch and 1 tablet in the evening. blood sugar 2022-0 Yes [id number] Check U nivers diagnostic 4-17 blood ity of strip 00:00: sugar 2 [place] times a Medical day. Branch E11.9. Brand per insurance. Uses ACCU-CHEK machine Lancets 0 Yes [id number] Check Unive rs Misc 4-17 blood ity of 00:00: sugar 2 [place] times a Medical day. Branch E11.9. Brand per insurance. gabapentin 0 Yes [id number] 300mg Take 1 [facility] 300 mg 4-17 capsule by ity of capsule 00:00: mouth in [place] the morning Branch and 1 capsule at noon and 1 capsule in the evening. amiodarone 0 Yes [id number] 200mg Take 1 [facility] 200 mg 4-17 tablet by ity of tablet 00:00: mouth in [place] the morning. Branch apixaban 5 0 Yes 5mg Take 1 Unive rs mg tablet 4-17 tablet by ity o f 00:00: mouth in [place] the morning Branch and 1 tablet in the evening. Indication s: ATRIAL FIBRILLATI ON atorvastati 0 Yes [id number] 40mg Take 1 [facility] n 40 mg 4-17 tablet by ity of tablet 00:00: mouth at [place] [address] bedtime. Medical Branch SERTraline 0 Yes [id number] 100mg Take 1 [facility] 100 mg 4-17 tablet by ity of tablet 00:00: mouth in [place] the morning. Branch lisinopriL 2022-0 Yes [id number] 2.5mg Take 1 [facility] 2.5 mg 4-17 tablet by ity of tablet 00:00: mouth in [place] the morning. Branch metoprolol 2022-0 Yes [id number] 25mg Take 1 U nivers tartrate 25 4-17 tablet by ity of mg tablet 00:00: mouth in [facility] the morning Branch and 1 tablet in the evening. blood sugar 2022-0 Yes [id number] Check U nivers diagnostic 4-17 blood ity of strip 00:00: sugar 2 [place] times a Medical day. Branch E11.9. Brand per insurance. Uses ACCU-CHEK machine Lancets Yes [id number] Check Unive rs Misc 4-17 blood ity of 00:00: sugar 2 [place] 00 times a Medical day. Branch E11.9. Brand per insurance. gabapentin Yes [id number] 300mg Take 1 [facility] 300 mg 4-17 capsule by ity of capsule 00:00: mouth in [place] the morning Branch and 1 capsule at noon and 1 capsule in the evening. amiodarone Yes [id number] 200mg Take 1 [facility] 200 mg 4-17 tablet by ity of tablet 00:00: mouth in [place] 00 the morning. Branch apixaban 5 Yes 5mg Take 1 Unive rs mg tablet 4-17 tablet by ity o f 00:00: mouth in [place] the morning Branch and 1 tablet in the evening. Indication s: ATRIAL FIBRILLATI ON atorvastati Yes [id number] 40mg Take 1 [facility] n 40 mg 4-17 tablet by ity of tablet 00:00: mouth at [place] 00 bedtime. Medical Branch SERTraline Yes [id number] 100mg Take 1 [facility] 100 mg 4-17 tablet by ity of tablet 00:00: mouth in [place] the morning. Branch lisinopriL Yes [id number] 2.5mg Take 1 [facility] 2.5 mg 4-17 tablet by ity of tablet 00:00: mouth in [place] 00 the morning. Branch metoprolol Yes [id number] 25mg Take 1 U nivers tartrate 25 4-17 tablet by ity of mg tablet 00:00: mouth in [facility] 00 the morning Branch and 1 tablet in the evening. blood sugar Yes [id number] Check U nivers diagnostic 4-17 blood ity of strip 00:00: sugar 2 [place] 00 times a Medical day. Branch E11.9. Brand per insurance. Uses ACCU-CHEK machine Lancets 0 Yes [id number] Check Unive rs Misc 4-17 blood ity of 00:00: sugar 2 [place] 00 times a Medical day. Branch E11.9. Brand per insurance. gabapentin Yes [id number] 300mg Take 1 [facility] 300 mg 4-17 capsule by ity of capsule 00:00: mouth in [place] the morning Branch and 1 capsule at noon and 1 capsule in the evening. amiodarone 2022-0 Yes [id number] 200mg Take 1 [facility] 200 mg 4-17 tablet by ity of tablet 00:00: mouth in [place] the morning. Branch apixaban 5 2022-0 Yes 5mg Take 1 Unive rs mg tablet 4-17 tablet by ity o f 00:00: mouth in [place] the morning Branch and 1 tablet in the evening. Indication s: ATRIAL FIBRILLATI ON atorvastati Yes [id number] 40mg Take 1 [facility] n 40 mg 4-17 tablet by ity of tablet 00:00: mouth at [place] [address] bedtime. Medical Branch SERTraline Yes [id number] 100mg Take 1 [facility] 100 mg 4-17 tablet by ity of tablet 00:00: mouth in [place] the morning. Branch lisinopriL Yes [id number] 2.5mg Take 1 [facility] 2.5 mg 4-17 tablet by ity of tablet 00:00: mouth in [place] the morning. Branch metoprolol Yes [id number] 25mg Take 1 U nivers tartrate 25 4-17 tablet by ity of mg tablet 00:00: mouth in [facility] the morning Branch and 1 tablet in the evening. blood sugar 0 Yes [id number] Check U nivers diagnostic 4-17 blood ity of strip 00:00: sugar 2 [place] 00 times a Medical day. Branch E11.9. Brand per insurance. Uses ACCU-CHEK machine Lancets 0 Yes [id number] Check Unive rs Misc 4-17 blood ity of 00:00: sugar 2 [place] 00 times a Medical day. Branch E11.9. Brand per insurance. gabapentin 2022-0 Yes [id number] 300mg Take 1 [facility] 300 mg 4-17 capsule by ity of capsule 00:00: mouth in [place] [address] the morning Branch and 1 capsule at noon and 1 capsule in the evening. amiodarone 2022-0 Yes [id number] 200mg Take 1 [facility] 200 mg 4-17 tablet by ity of tablet 00:00: mouth in [place] the morning. Branch apixaban 5 0 Yes 5mg Take 1 Unive rs mg tablet 4-17 tablet by ity o f 00:00: mouth in [place] the morning Branch and 1 tablet in the evening. Indication s: ATRIAL FIBRILLATI ON atorvastati Yes [id number] 40mg Take 1 [facility] n 40 mg 4-17 tablet by ity of tablet 00:00: mouth at [place] [address] bedtime. Medical Branch SERTraline Yes [id number] 100mg Take 1 [facility] 100 mg 4-17 tablet by ity of tablet 00:00: mouth in [place] the morning. Branch lisinopriL Yes [id number] 2.5mg Take 1 [facility] 2.5 mg 4-17 tablet by ity of tablet 00:00: mouth in [place] [address] the morning. Branch metoprolol Yes [id number] 25mg Take 1 U nivers tartrate 25 4-17 tablet by ity of mg tablet 00:00: mouth in [facility] the morning Branch and 1 tablet in the evening. blood sugar Yes [id number] Check U nivers diagnostic 4-17 blood ity of strip 00:00: sugar 2 [place] times a Medical day. Branch E11.9. Brand per insurance. Uses ACCU-CHEK machine Lancets Yes [id number] Check Unive rs Misc 4-17 blood ity of 00:00: sugar 2 [place] 00 times a Medical day. Branch E11.9. Brand per insurance. gabapentin Yes [id number] 300mg Take 1 [facility] 300 mg 4-17 capsule by ity of capsule 00:00: mouth in [place] the morning Branch and 1 capsule at noon and 1 capsule in the evening. amiodarone Yes [id number] 200mg Take 1 [facility] 200 mg 4-17 tablet by ity of tablet 00:00: mouth in [place] the morning. Branch apixaban 5 0 Yes 5mg Take 1 Unive rs mg tablet 4-17 tablet by ity o f 00:00: mouth in [place] the morning Branch and 1 tablet in the evening. Indication s: ATRIAL FIBRILLATI ON atorvastati 2023-0 Yes [id number] 40mg Take 1 [facility] n 40 mg 4-17 tablet by ity of tablet 00:00: mouth at [place] [address] bedtime. Medical Branch SERTraline Yes [id number] 100mg Take 1 [facility] 100 mg 4-17 tablet by ity of tablet 00:00: mouth in [place] the morning. Branch lisinopriL Yes [id number] 2.5mg Take 1 [facility] 2.5 mg 4-17 tablet by ity of tablet 00:00: mouth in [place] the morning. Branch metoprolol Yes [id number] 25mg Take 1 U nivers tartrate 25 4-17 tablet by ity of mg tablet 00:00: mouth in [facility] 00 the morning Branch and 1 tablet in the evening. blood sugar Yes [id number] Check U nivers diagnostic 4-17 blood ity of strip 00:00: sugar 2 [place] 00 times a Medical day. Branch E11.9. Brand per insurance. Uses ACCU-CHEK machine Lancets Yes [id number] Check Unive rs Misc 4-17 blood ity of 00:00: sugar 2 [place] times a Medical day. Branch E11.9. Brand per insurance. gabapentin Yes [id number] 300mg Take 1 [facility] 300 mg 4-17 capsule by ity of capsule 00:00: mouth in [place] the morning Branch and 1 capsule at noon and 1 capsule in the evening. amiodarone Yes [id number] 200mg Take 1 [facility] 200 mg 4-17 tablet by ity of tablet 00:00: mouth in [place] the morning. Branch apixaban 5 0 Yes 5mg Take 1 Unive rs mg tablet 4-17 tablet by ity o f 00:00: mouth in [place] the morning Branch and 1 tablet in the evening. Indication s: ATRIAL FIBRILLATI ON atorvastati Yes [id number] 40mg Take 1 [facility] n 40 mg 4-17 tablet by ity of tablet 00:00: mouth at [place] [address] bedtime. Medical Branch SERTraline Yes [id number] 100mg Take 1 [facility] 100 mg 4-17 tablet by ity of tablet 00:00: mouth in [place] 00 the morning. Branch lisinopriL 0 Yes [id number] 2.5mg Take 1 [facility] 2.5 mg 4-17 tablet by ity of tablet 00:00: mouth in [place] the morning. Branch metoprolol 0 Yes [id number] 25mg Take 1 U nivers tartrate 25 4-17 tablet by ity of mg tablet 00:00: mouth in [facility] 00 the morning Branch and 1 tablet in the evening. blood sugar 2022-0 Yes [id number] Check U nivers diagnostic 4-17 blood ity of strip 00:00: sugar 2 [place] 00 times a Medical day. Branch E11.9. Brand per insurance. Uses ACCU-CHEK machine Lancets Yes [id number] Check Unive rs Misc 4-17 blood ity of 00:00: sugar 2 [place] times a Medical day. Branch E11.9. Brand per insurance. gabapentin Yes [id number] 300mg Take 1 [facility] 300 mg 4-17 capsule by ity of capsule 00:00: mouth in [place] 00 the morning Branch and 1 capsule at noon and 1 capsule in the evening. amiodarone 0 Yes [id number] 200mg Take 1 [facility] 200 mg 4-17 tablet by ity of tablet 00:00: mouth in [place] the morning. Branch apixaban 5 0 Yes 5mg Take 1 Unive rs mg tablet 4-17 tablet by ity o f 00:00: mouth in [place] 00 the morning Branch and 1 tablet in the evening. Indication s: ATRIAL FIBRILLATI ON atorvastati 2022-0 Yes [id number] 40mg Take 1 [facility] n 40 mg 4-17 tablet by ity of tablet 00:00: mouth at [place] [address] bedtime. Medical Branch SERTraline 0 Yes [id number] 100mg Take 1 [facility] 100 mg 4-17 tablet by ity of tablet 00:00: mouth in [place] 00 the morning. Branch lisinopriL 2022-0 Yes [id number] 2.5mg Take 1 [facility] 2.5 mg 4-17 tablet by ity of tablet 00:00: mouth in [place] 00 the Medical morning. Branch metoprolol 2022-0 Yes [id number] 25mg Take 1 U nivers tartrate 25 4-17 tablet by ity of mg tablet 00:00: mouth in [place] [address] the Medical morning Branch and 1 tablet in the evening. blood sugar 0 Yes [id number] Check U nivers diagnostic 4-17 blood ity of strip 00:00: sugar 2 [place] times a Medical day. Branch E11.9. Brand per insurance. Uses ACCU-CHEK machine Lancets Yes [id number] Check Unive rs Misc 4-17 blood ity of 00:00: sugar 2 [place] times a Medical day. Branch E11.9. Brand per insurance. gabapentin Yes [id number] 300mg Take 1 [facility] 300 mg 4-17 capsule by ity of capsule 00:00: mouth in [place] the morning Branch and 1 capsule at noon and 1 capsule in the evening. amiodarone Yes [id number] 200mg Take 1 [facility] 200 mg 4-17 tablet by ity of tablet 00:00: mouth in [place] the morning. Branch apixaban 5 Yes 5mg Take 1 Unive rs mg tablet 4-17 tablet by ity o f 00:00: mouth in [place] the morning Branch and 1 tablet in the evening. Indication s: ATRIAL FIBRILLATI ON atorvastati Yes [id number] 40mg Take 1 [facility] n 40 mg 4-17 tablet by ity of tablet 00:00: mouth at [place] [address] bedtime. Medical Branch SERTraline 0 Yes [id number] 100mg Take 1 [facility] 100 mg 4-17 tablet by ity of tablet 00:00: mouth in [place] the morning. Branch lisinopriL Yes [id number] 2.5mg Take 1 [facility] 2.5 mg 4-17 tablet by ity of tablet 00:00: mouth in [place] 00 the Medical morning. Branch metoprolol 0 Yes [id number] 25mg Take 1 U nivers tartrate 25 4-17 tablet by ity of mg tablet 00:00: mouth in [facility] the morning Branch and 1 tablet in the evening. blood sugar 2022-0 Yes [id number] Check U nivers diagnostic 4-17 blood ity of strip 00:00: sugar 2 [place] 00 times a Medical day. Branch E11.9. Brand per insurance. Uses ACCU-CHEK machine Lancets Yes [id number] Check Unive rs Misc 4-17 blood ity of 00:00: sugar 2 [place] 00 times a Medical day. Branch E11.9. Brand per insurance. gabapentin 2022-0 Yes [id number] 300mg Take 1 [facility] 300 mg 4-17 capsule by ity of capsule 00:00: mouth in [place] the morning Branch and 1 capsule at noon and 1 capsule in the evening. amiodarone 2022-0 Yes [id number] 200mg Take 1 [facility] 200 mg 4-17 tablet by ity of tablet 00:00: mouth in [place] the morning. Branch apixaban 5 2022-0 Yes 5mg Take 1 Unive rs mg tablet 4-17 tablet by ity o f 00:00: mouth in [place] the morning Branch and 1 tablet in the evening. Indication s: ATRIAL FIBRILLATI ON atorvastati 2022-0 Yes [id number] 40mg Take 1 [facility] n 40 mg 4-17 tablet by ity of tablet 00:00: mouth at [place] [address] bedtime. Medical Branch SERTraline 2022-0 Yes [id number] 100mg Take 1 [facility] 100 mg 4-17 tablet by ity of tablet 00:00: mouth in [place] the morning. Branch lisinopriL 0 Yes [id number] 2.5mg Take 1 [facility] 2.5 mg 4-17 tablet by ity of tablet 00:00: mouth in [place] the morning. Branch metoprolol 2022-0 Yes [id number] 25mg Take 1 U nivers tartrate 25 4-17 tablet by ity of mg tablet 00:00: mouth in [facility] the morning Branch and 1 tablet in the evening. blood sugar 2022-0 Yes [id number] Check U nivers diagnostic 4-17 blood ity of strip 00:00: sugar 2 [place] 00 times a Medical day. Branch E11.9. Brand per insurance. Uses ACCU-CHEK machine Lancets 2022-0 Yes [id number] Check Unive rs Misc 4-17 blood ity of 00:00: sugar 2 [place] 00 times a Medical day. Branch E11.9. Brand per insurance. gabapentin 2022-0 Yes [id number] 300mg Take 1 [facility] 300 mg 4-17 capsule by ity of capsule 00:00: mouth in [place] the morning Branch and 1 capsule at noon and 1 capsule in the evening. amiodarone 0 Yes [id number] 200mg Take 1 [facility] 200 mg 4-17 tablet by ity of tablet 00:00: mouth in [place] 00 the morning. Branch apixaban 5 2022-0 Yes 5mg Take 1 Unive rs mg tablet 4-17 tablet by ity o f 00:00: mouth in [place] the morning Branch and 1 tablet in the evening. Indication s: ATRIAL FIBRILLATI ON atorvastati 0 Yes [id number] 40mg Take 1 [facility] n 40 mg 4-17 tablet by ity of tablet 00:00: mouth at [place] [address] bedtime. Medical Branch SERTraline 0 Yes [id number] 100mg Take 1 [facility] 100 mg 4-17 tablet by ity of tablet 00:00: mouth in [place] 00 the morning. Branch lisinopriL Yes [id number] 2.5mg Take 1 [facility] 2.5 mg 4-17 tablet by ity of tablet 00:00: mouth in [place] 00 the morning. Branch metoprolol 0 Yes [id number] 25mg Take 1 U nivers tartrate 25 4-17 tablet by ity of mg tablet 00:00: mouth in [facility] 00 the morning Branch and 1 tablet in the evening. blood sugar 0 Yes [id number] Check U nivers diagnostic 4-17 blood ity of strip 00:00: sugar 2 [place] 00 times a Medical day. Branch E11.9. Brand per insurance. Uses ACCU-CHEK machine Lancets 0 Yes [id number] Check Unive rs Misc 4-17 blood ity of 00:00: sugar 2 [place] 00 times a Medical day. Branch E11.9. Brand per insurance. gabapentin 0 Yes [id number] 300mg Take 1 [facility] 300 mg 4-17 capsule by ity of capsule 00:00: mouth in [place] 00 the morning Branch and 1 capsule at noon and 1 capsule in the evening. amiodarone 2022-0 Yes [id number] 200mg Take 1 [facility] 200 mg 4-17 tablet by ity of tablet 00:00: mouth in [place] 00 the morning. Branch apixaban 5 2022-0 Yes 5mg Take 1 Unive rs mg tablet 4-17 tablet by ity o f 00:00: mouth in [place] 00 the Medical morning Branch and 1 tablet in the evening. Indication s: ATRIAL FIBRILLATI ON atorvastati Yes [id number] 40mg Take 1 [facility] n 40 mg 4-17 tablet by ity of tablet 00:00: mouth at [place] [address] bedtime. Medical Branch SERTraline Yes [id number] 100mg Take 1 [facility] 100 mg 4-17 tablet by ity of tablet 00:00: mouth in [place] 00 the morning. Branch lisinopriL Yes [id number] 2.5mg Take 1 Univers 2.5 mg 4-17 tablet by ity of tablet 00:00: mouth in [place] 00 the morning. Branch metoprolol Yes [id number] 25mg Take 1 U nivers tartrate 25 4-17 tablet by ity of mg tablet 00:00: mouth in [facility] 00 the morning Branch and 1 tablet in the evening. blood sugar Yes [id number] Check U nivers diagnostic 4-17 blood ity of strip 00:00: sugar 2 [place] 00 times a Medical day. Branch E11.9. Brand per insurance. Uses ACCU-CHEK machine Lancets Yes [id number] Check Unive rs Misc 4-17 blood ity of 00:00: sugar 2 [place] 00 times a Medical day. Branch E11.9. Brand per insurance. gabapentin Yes [id number] 300mg Take 1 [facility] 300 mg 4-17 capsule by ity of capsule 00:00: mouth in [place] 00 the morning Branch and 1 capsule at noon and 1 capsule in the evening. amiodarone Yes [id number] 200mg Take 1 [facility] 200 mg 4-17 tablet by ity of tablet 00:00: mouth in [place] 00 the morning. Branch apixaban 5 0 Yes 5mg Take 1 Unive rs mg tablet 4-17 tablet by ity o f 00:00: mouth in [place] 00 the morning Branch and 1 tablet in the evening. Indication s: ATRIAL FIBRILLATI ON atorvastati Yes [id number] 40mg Take 1 [facility] n 40 mg 4-17 tablet by ity of tablet 00:00: mouth at [place] [address] bedtime. Medical Branch SERTraline Yes [id number] 100mg Take 1 [facility] 100 mg 4-17 tablet by ity of tablet 00:00: mouth in [place] 00 the Medical morning. Branch lisinopriL Yes [id number] 2.5mg Take 1 Univers 2.5 mg 4-17 tablet by ity of tablet 00:00: mouth in [place] 00 the Medical morning. Branch metoprolol Yes [id number] 25mg Take 1 U nivers tartrate 25 4-17 tablet by ity of mg tablet 00:00: mouth in [facility] s 00 the Medical morning Branch and 1 tablet in the evening. blood sugar Yes [id number] Check U nivers diagnostic 4-17 blood ity of strip 00:00: sugar 2 [place] 00 times a Medical day. Branch E11.9. Brand per insurance. Uses ACCU-CHEK machine Lancets Yes [id number] Check Unive rs Misc 4-17 blood ity of 00:00: sugar 2 [place] 00 times a Medical day. Branch E11.9. Brand per insurance. SERTraline Yes [id number] 100mg Take 1 Univers 100 mg 4-17 tablet by ity of tablet 00:00: mouth in [place] 00 the Medical morning. Branch SERTraline 2022- No [id number] 100mg Take 1 [facility] 100 mg 4-17 05-19 tablet by ity of tablet 00:00: 00:00 mouth in [place] 00 :00 the Medical morning. Branch gabapentin 2022- No [id number] 300mg Take 1 [facility] 300 mg 4-17 05-18 capsule by ity of capsule 00:00: 00:00 mouth in [place] 00 :00 the Medical morning Branch and 1 capsule at noon and 1 capsule in the evening. amiodarone 2022- No [id number] 200mg Take 1 [facility] 200 mg 4-17 05-18 tablet by ity of tablet 00:00: 00:00 mouth in [place] 00 :00 the Medical morning. Branch apixaban 5 2022- No 5mg Take 1 Univ ers mg tablet 4-17 05-18 tablet by ity of 00:00: 00:00 mouth in [place] 00 :00 the Medical morning Branch and 1 tablet in the evening. Indication s: ATRIAL FIBRILLATI ON atorvastati 2022- No [id number] 40mg Take 1 Univers n 40 mg 08-05-18 tablet by ity of tablet 00:00: 00:00 mouth at [place] 00 :00 bedtime. Medical Branch lisinopriL 2022- No [id number] 2.5mg Take 1 [facility] 2.5 mg 08-05-18 tablet by ity of tablet 00:00: 00:00 mouth in [place] 00 :00 the Medical morning. Branch metoprolol 2022- No [id number] 25mg Take 1 [facility] tartrate 25 08-05-18 tablet by it y of mg tablet 00:00: 00:00 mouth in [place] 00 :00 the Medical morning Branch and 1 tablet in the evening. blood sugar 2022- No [id number] Check Univers diagnostic -04 09-18 blood ity of strip 00:00: 00:00 sugar 2 [place] 00 :00 times a Medical day. Branch E11.9. Brand per insurance. Uses ACCU-CHEK machine Lancets 2022- No [id number] Check Univ ers Misc 4- 05-18 blood ity of 00:00: 00:00 sugar 2 [place] 00 :00 times a Medical day. Branch E11.9. Brand per insurance. blood sugar 2022- No [id number] Check Univers diagnostic 4-17 04-17 blood ity of strip 00:00: 00:00 sugar 2 [place] 00 :00 times a Medical day. Branch E11.9. Brand per insurance. Uses ACCU-CHEK machine blood sugar 2022- No [id number] Check Univers diagnostic 4-17 04-17 blood ity of strip 00:00: 00:00 sugar 2 [place] 00 :00 times a Medical day. Branch E11.9. Brand per insurance. Uses ACCU-CHEK machine blood sugar 2022- No [id number] Check Univers diagnostic 4-17 04-17 blood ity of strip 00:00: 00:00 sugar 2 [place] 00 :00 times a Medical day. Branch E11.9. Brand per insurance. Uses ACCU-CHEK machine amiodarone 2022- Yes 200mg Take 1 Univ ers 200 mg 4-12 tablet by ity of tablet 00:00: mouth in [place] 00 the Medical morning. Branch SERTraline 2023-0 Yes 25mg Take 1 Unive rs 25 mg 4-12 tablet by ity of tablet 00:00: mouth in [place] 00 the Medical morning. Branch amiodarone 2023-0 Yes 200mg Take 1 Univ ers 200 mg 4-12 tablet by ity of tablet 00:00: mouth in [place] 00 the Medical morning. Branch SERTraline 2023-0 Yes 25mg Take 1 Unive rs 25 mg 4-12 tablet by ity of tablet 00:00: mouth in [place] 00 the Medical morning. Branch amiodarone 2023-0 Yes 200mg Take 1 Univ ers 200 mg 4-12 tablet by ity of tablet 00:00: mouth in [place] 00 the Medical morning. Branch SERTraline 2023-0 Yes 25mg Take 1 Unive rs 25 mg 4-12 tablet by ity of tablet 00:00: mouth in [place] 00 the Medical morning. Branch amiodarone 2023-0 2023- No 200mg Take 1 Uni vers 200 mg 4-12 04-17 tablet by ity of tablet 00:00: 00:00 mouth in [place] 00 :00 the Medical morning. Branch SERTraline 2023-0 2023- No 100mg Take 1 Uni vers 100 mg 4-12 04-17 tablet by ity of tablet 00:00: 00:00 mouth in [place] 00 :00 the Medical morning. Branch amiodarone 2023-0 2023- No 200mg Take 1 Uni vers 200 mg 4-12 04-17 tablet by ity of tablet 00:00: 00:00 mouth in [place] 00 :00 the Medical morning. Branch SERTraline 2023-0 2023- No 100mg Take 1 Uni vers 100 mg 4-12 04-17 tablet by ity of tablet 00:00: 00:00 mouth in [place] 00 :00 the Medical morning. Branch amiodarone 2023-0 2023- No 200mg Take 1 Uni vers 200 mg 4-12 04-17 tablet by ity of tablet 00:00: 00:00 mouth in [place] 00 :00 the Medical morning. Branch SERTraline 2023-0 2023- No 100mg Take 1 Uni vers 100 mg 4-12 04-17 tablet by ity of tablet 00:00: 00:00 mouth in [place] 00 :00 the Medical morning. Branch sodium 2023-0 Yes Topical, Univers hypochlorit 4-11 BID, First it y of e 0.025% 01:00: dose on [place] ([facility]) 00 Fri Medical solution 07/29/22 at [facility] h 1999, Until Discontinu ed, Routine iron 2022- No 500mg 500 mg, IV Unive rs sucrose 07-29 Infusion, ity of (VENOFER) 19:15: 23:11 ONCE, [place] 500 mg in 00 :00 Administer Medi dilshad NaCl 0.9% over 2.5 Branch (NS) 250 mL Hours, On infusion 07/29/22 at 1415, For 1 dose iopamidol 2022- No [id number] 80mL 80 mL, Univers (ISOVUE 07-29 Intravenou [...] [place] mg 00 First dose Medical on [place] Branch 07/28/22 at 0900, Until Discontinu ed, Routine SERTraline Yes 25mg 25 mg, Unive rs (ZOLOFT) 07-28 Oral, ity of tablet 25 14:00: DAILY, [place] mg 00 First dose Medical on [place] Branch 07/28/22 at 0900, Until Discontinu ed, [...] First dose [place] mg 00 :43 on [place] Medical 07/28/22 at Branch 0800, Until Discontinu ed, Routine vancomycin No 15mg/kg 1,500 mg Univers (VANCOCIN) 07-28 (rounded ity of 1,500 mg in 11:00: 13:55 from 1,380 [place] NaCl 0.9% 00 :31 mg = 15 Medical (NS) 500 mL mg/kg ?92 [facility] VIAL-MATE kg), IV IV Piggyback, [...] :00 ONCE, 1 Medical dose, On Branch [place] 07/28/22 at 0530, Routine NaCl 0.9% 2022- No 500mL at 999 [facility] ers (NS) bolus 07-28 mL/hr, 500 it y of infusion 09:54: 11:57 mL, IV [place] 500 mL 00 :00 Piggyback, Medical ONCE, 1 Branch dose, On [place] 07/28/22 at 0500, STAT lactated 0 2022- No 1000mL at 999 [facility] ers ringers IV 07-28 mL/hr, ity of infusion 08:30: 09:06 1,000 mL, [place] 1,000 mL 00 :00 Intravenou Medic al s, ONCE, 1 Branch dose, On [place] 07/28/22 at 0330, Routine HEPARIN 2022-0 2022- No 4000U 4,000 Univers SODIUM 07-28 Units, IV ity of (PORCINE) 07:45: 08:24 Push, [place] 1,000 00 :00 ONCE, 1 Medical UNIT/ML dose, On Branch BOLUS ACS [place] 07/28/22 ORDER SET at 0245, GELA dextrose 2022-0 Yes 250mL 250 mL, IV Un anil 10% (D10W) 07-28 Infusion, ity of bolus 07:32: PRN - SEE [place] infusion 32 INSTRUCTIO Medic al 250 mL NS, Branch Administer over 60 Minutes, Other, If blood glucose is < or = 70 mg/dL and patient is unable to swallow or has mental status changes, Starting on [place] 07/28/22 at 0232
If blood glucose is [...] Starting [place] mL vial) 11 :03 on [place] Medical for 07/28/22 at Branch Rebolusing 0230, Until 07/29/22 at 0943, Routine
Dosing based on aPPT testing parameters (refer to continuous heparin drip order).
ceFEPIme 2022- No 1000mg 1,000 mg, U nivers (MAXIPIME) 07-28 IV ity of 1,000 mg in 07:30: 09:39 Piggyback, [place] NaCl 0.9% 00 :00 ONCE, 1 Medical [...] 250 mL 00 Q24H ABX, Med ical VIAL-channel opener outsoles dose Bran ch IV on Fri piggyback [...] of Therapy: Other (see Comments) cephALEXin Yes [id number] 500mg Take 1 Univers (KEFLEX) 07-19 capsule by ity o f 500 mg 00:00: mouth 4 [place] capsule 00 (four) Medical times Branch daily. cephALEXin 2022- No [id number] 500mg Take 1 Univers (KEFLEX) 07-19 capsule by ity of 500 mg 00:00: 00:00 mouth 4 [place] capsule 00 :00 (four) Medical times Branch daily. HYDROcodone 2022- No [id number] 1{tbl} Take 1 U nivers -acetaminop 07-19 tablet by it y of kem (NORCO) 00:00: 04:59 mouth [place] 10-325 mg 00 :00 every 6 Medical tablet (six) Branch hours as needed for Pain (scale 7-10) for up to 7 days. Indication s: acute pain sulfamethox 2022-0 2023- No [id number] 2{tbl} Take 2 Univers azole-trime 3-31 04-08 [...] OF JUICE OR WATER HYDROcodone 2022-0 Yes [id number] 1{tbl} Q6H Take 1 M ethodi -acetaminop [...] OF JUICE OR WATER HYDROcodone 2022-0 Yes [id number] 1{tbl} Q6H Take 1 M ethodi -acetaminop [...] OF JU[place] WATER HYDROcodone 3-0 Yes [id number] 1{tbl} Q6H Take 1 M ethodi -acetaminop [...] OF JU[place] WATER HYDROcodone 2022-0 Yes [id number] 1{tbl} Q6H Take 1 M ethodi -acetaminop [...] OF JUICE OR WATER HYDROcodone 2022-0 Yes [id number] 1{tbl} Q6H Take 1 M ethodi -acetaminop [...] OF JUICE [place] WATER HYDROcodone 2022-0 Yes [id number] 1{tbl} Q6H Take 1 M ethodi -acetaminop [...] OF JUICE OR WATER HYDROcodone 2022-0 Yes [id number] 1{tbl} Q6H Take 1 M ethodi -acetaminop [...] OF JUICE OR WATER HYDROcodone 2022-0 Yes [id number] 1{tbl} Q6H Take 1 M ethodi -acetaminop [...] OF JUICE OR WATER HYDROcodone 2022-0 Yes [id number] 1{tbl} Q6H Take 1 M ethodi -acetaminop [...] OF JUICE [place] WATER HYDROcodone 2022-0 Yes [id number] 1{tbl} Q6H Take 1 M ethodi -acetaminop [...] OF JUICE [place] WATER HYDROcodone 3-0 Yes [id number] 1{tbl} Q6H Take 1 M ethodi -acetaminop [...] OF JUICE OR WATER HYDROcodone 3-0 Yes [id number] 1{tbl} Q6H Take 1 M ethodi -acetaminop [...] OF JU[place] WATER HYDROcodone 2022-0 Yes [id number] 1{tbl} Q6H Take 1 M ethodi -acetaminop [...] l packet OF JUICE OR WATER HYDROcodone Yes [id number] 1{tbl} Q6H Take 1 M ethodi -acetaminop [...] or as directed by physician. lidocaine 4 3-[address] 1 Met hodi % 3-15 [...] hours for 6 days. meropenem 1 2022-0 202- No 1g Q12H Infuse 1 g Methodi [...] (twelve) hours for 6 days. meropenem 1 2023-0 2023- No 1g Q12H Infuse 1 g [...] hours for 6 days. levoFLOXaci 2022- No [id number] 500mg QD Take 1 Methodi n 06-[id number] (Levaquin) 00:00: 00:00 (500 mg [facility] 500 MG 00 :00 total) by l tablet mouth daily. levoFLOXaci 2022- No [id number] 500mg QD Take 1 Methodi n 06-[id number] (Levaquin) 00:00: 00:00 (500 mg [facility] [place] 500 MG 00 :00 total) by l tablet mouth daily. levoFLOXaci 2022- No [id number] 500mg QD Take 1 Methodi n 06-[id number] (Levaquin) 00:00: 00:00 (500 mg [facility] [place] 500 MG 00 :00 total) by l tablet mouth daily. levoFLOXaci 2022- No [id number] 500mg QD Take 1 Methodi n 06-[id number] (Levaquin) 00:00: 00:00 (500 mg [facility] [place] 500 MG 00 :00 total) by l tablet mouth daily. levoFLOXaci 2022- No [id number] 500mg QD Take 1 Methodi n 06-[id number] (Levaquin) 00:00: 00:00 (500 mg [facility] [place] 500 MG 00 :00 total) by l tablet mouth daily. levoFLOXaci 2022- No [id number] 500mg QD Take 1 Methodi n 06-[id number] (Levaquin) 00:00: 00:00 (500 mg [facility] [place] 500 MG 00 :00 total) by l tablet mouth daily. levoFLOXaci 2022- No [id number] 500mg QD Take 1 Methodi n 06-[id number] (Levaquin) 00:00: 00:00 (500 mg [facility] [place] [place] 500 MG 00 :00 total) by l tablet mouth daily. levoFLOXaci 0 2022- No [id number] 500mg QD Take 1 Methodi n 06-[id number] (Levaquin) 00:00: 00:00 (500 mg [facility] 500 MG 00 :00 total) by l tablet mouth daily. levoFLOXaci 2022-2022- No [id number] 500mg QD Take 1 Methodi n 06-[id number] (Levaquin) 00:00: 00:00 (500 mg [facility] 500 MG 00 :00 total) by l tablet mouth daily. levoFLOXaci 2022-0 2022- No [id number] 500mg QD Take 1 Methodi n 06-[id number] (Levaquin) 00:00: 00:00 (500 mg [facility] 500 MG 00 :00 total) by l tablet mouth daily. levoFLOXaci 2022-2022- No [id number] 500mg QD Take 1 Methodi n 06-[id number] (Levaquin) 00:00: 00:00 (500 mg [facility] 500 MG 00 :00 total) by l tablet mouth daily. levoFLOXaci 2022-0 2022- No [id number] 500mg QD Take 1 Methodi n 06-[id number] (Levaquin) 00:00: 00:00 (500 mg [facility] 500 MG 00 :00 total) by l tablet mouth daily. levoFLOXaci 2022-0 2022- No [id number] 500mg QD Take 1 Methodi n 06-[id number] (Levaquin) 00:00: 00:00 (500 mg [facility] [place] [place] 500 MG 00 :00 total) by l tablet mouth daily. levoFLOXaci 2022-0 2022- No [id number] 500mg QD Take 1 Methodi n 06-[id number] (Levaquin) 00:00: 00:00 (500 mg [facility] 500 MG 00 :00 total) by l tablet mouth daily. clopidogreL 2022-0 Yes 75mg QD Take 1 Meth greer [...] 00:00: Hospita capsule 00 l sennosides- 3-0 3- No 2{tbl} Take 2 M ethodi docusate 05-14 03-[address] sodium 00:00: 00:00 mouth. Hospita (SENOKOT-S) 00 :00 l 8.6-50 mg per tablet sennosides- 3-0 2023- No 2{tbl} Take 2 M ethodi docusate -24 -[address] sodium 00:00: 00:00 mouth. Hospita (SENOKOT-S) 00 :00 l 8.6-50 mg per tablet sennosides- 3-0 2023- No 2{tbl} Take 2 M ethodi docusate -24 -[address] sodium 00:00: 00:00 mouth. Hospita (SENOKOT-S) 00 :00 l 8.6-50 mg per tablet sennosides- 3-0 2023- No 2{tbl} Take 2 M ethodi docusate -24 -[address] sodium 00:00: 00:00 [...] 2{tbl} Take 2 M ethodi docusate -24 -[address] sodium 00:00: 00:00 mouth. Hospita (SENOKOT-S) 00 :00 l 8.6-50 mg per tablet sennosides- 3-0 2023- No 2{tbl} Take 2 M ethodi docusate -24 -[address] sodium 00:00: 00:00 [...] times a day for 30 days. polyethylen 0 2022- No 17g QD Take 17 g [...] times a day for 30 days. famotidine No 20mg Q.5D Take 1 Meth greer [...] 100mg Q.5D Take 1 Metho di sodium 05-14-[address] (COLACE) 00:00: 05:59 (100 mg [...] 00 :00 30 days. l packet senna 2022-0 2022- No 2{tbl} Q24H Take 2 Methodi (SENOKOT) 05-14-[address] 8.6 mg 00:00: 05:59 mouth [facility]ospita tablet 00 :00 daily as l needed for constipati on for up to 30 days. sertraline 2022-0 2022- No 50mg QD Take 1 Meth greer (ZOLOFT) 50 -14 06-24 tablet (50 s t MG tablet 00:00: [...] on for up to 30 days. sertraline 2022-2022- No 50mg QD Take 1 Meth [facility] (ZOLOFT) 50 05-14-24 tablet (50 s t MG tablet 00:00: 05:59 mg total) Ho spita 00 :00 by mouth l daily for 30 days. lisinopriL 2022- No 2.5mg QD Take 1 Met hodi (PRINIVIL) 05-14- tablet st 2.5 mg 00:00: 05:59 (2.5 mg Hospita tablet 00 :00 total) by l mouth daily for 30 days. cefTRIAXone 2022-0 2022- No 2g Q12H Infuse 2 g Methodi (ROCEPHIN) 05-[address] 2 g in 100 00:00: 05:59 venous [facility] ML Mini-Bag 00 :00 catheter l Plus every 12 (twelve) hours for 10 days. HYDROcodone 2022-0 2022- No [id number] 1{tbl} Q6H Take 1 Methodi -acetaminop 05-[address] [facility] (YaData) 00:00: 05:59 mouth [facility] 10-325 mg 00 :00 every 6 l per tablet (six) hours as needed for moderate pain or severe pain for up to 7 days .acute pain. Max Daily Amount: 4 tablets cefTRIAXone 3-0 2022- No 2g Q12H Infuse 2 g Methodi (ROCEPHIN) 05-[address] 2 g in 100 00:00: 05:59 venous [facility] ML Mini-Bag 00 :00 catheter l Plus every 12 (twelve) hours for 10 days. HYDROcodone 2022-0 2022- [place] [id number] 1{tbl} Q6H Take 1 Methodi -acetaminop 05-[address] [facility] (YaData) 00:00: 05:59 mouth [facility] 10-325 mg 00 :00 every 6 l per tablet (six) hours as needed for moderate pain or severe pain for up to 7 days .acute pain. Max Daily Amount: 4 tablets cefTRIAXone 2022-0 202- No 2g Q12H Infuse 2 g Methodi (ROCEPHIN) 05-[address] 2 g in 100 00:00: 05:59 venous [facility] ML Mini-Bag 00 :00 catheter l Plus every 12 (twelve) hours for 10 days. HYDROcodone 2022-0 2022- No [id number] 1{tbl} Q6H Take 1 Methodi -acetaminop 05-14- tablet by [facility] (YaData) 00:00: 05:59 mouth [facility] 10-325 mg [...] for 10 days. HYDROcodone 2023-0 202- No [id number] 1{tbl} Q6H Take 1 Methodi -acetaminop 05-14- tablet [facility] (YaData) 00:00: 05:59 mouth [facility] 10-325 mg [...] for 10 days. HYDROcodone 2023-0 202- No [id number] 1{tbl} Q6H Take 1 Methodi -acetaminop 05-14- tablet by [employer]) 00:00: 05:59 mouth [facility] 10-325 mg [...] for 10 days. HYDROcodone 2023-0 202- No [id number] 1{tbl} Q6H Take 1 Methodi -acetaminop 05-14-[address] [employer]) 00:00: 05:59 mouth [facility] 10-325 mg [...] for 10 days. HYDROcodone 2023-0 202- No [id number] 1{tbl} Q6H Take 1 Methodi -acetaminop 05-14- tablet [facility] (YaData) 00:00: 05:59 mouth [facility] 10-325 mg [...] for 10 days. HYDROcodone 3-0 2022- No [id number] 1{tbl} Q6H Take 1 Methodi -acetaminop 05-14- tablet [facility] (YaData) 00:00: 05:59 mouth [facility] 10-325 mg [...] for 10 days. HYDROcodone 2023-0 202- No [id number] 1{tbl} Q6H Take 1 Methodi -acetaminop 05-14- tablet [facility] (YaData) 00:00: 05:59 mouth [facility] 10-325 mg [...] for 10 days. HYDROcodone 2022-0 2022- No [id number] 1{tbl} Q6H Take 1 Methodi -acetaminop 05-14- tablet by [facility] (YaData) 00:00: 05:59 mouth [facility] 10-325 mg [...] for 10 days. HYDROcodone 2022-0 2022- No [id number] 1{tbl} Q6H Take 1 Methodi -acetaminop 05-14- tablet [facility] (YaData) 00:00: 05:59 mouth [facility] 10-325 mg [...] for 10 days. HYDROcodone 2023-0 2022- [place] [id number] 1{tbl} Q6H Take 1 Methodi -acetaminop 05-14- tablet by [facility] (YaData) 00:00: 05:59 mouth [facility] 10-325 mg [...] hours for 10 days. HYDROcodone 2022- No [id number] 1{tbl} Q6H Take 1 Methodi -acetaminop 05-[address] [facility] (YaData) 00:00: 05:59 mouth [facility] 10-325 mg 00 :00 every 6 l per tablet (six) hours as needed for moderate pain or severe pain for up to 7 days .acute pain. Max Daily Amount: 4 tablets cefTRIAXone No 2g Q12H Infuse 2 g Methodi (ROCEPHIN) 05-[address] 2 g in 100 00:00: 05:59 venous [facility] ML Mini-Bag 00 :00 catheter l Plus every 12 (twelve) hours for 10 days. [place]DRO[place] 2022- [place] [id number] 1{tbl} Q6H Take 1 Methodi -acetaminop 05-[address] [facility] (YaData) 00:00: 05:59 mouth [facility] 10-325 mg [...] for 30 days. insulin 2021-04- No 0U [id number] Inject M ethodi lispro 05-25 [id number] 0-[address] (ADMELOG) 00:00: 05:59 3D [...] for 30 days. insulin 2021-04- No 0U [id number] Inject M ethodi lispro 05-25 [id number] 0-[address] (ADMELOG) 00:00: 05:59 3D [...] for 30 days. insulin 2021-04 No 0U [id number] Inject M ethodi lispro 05-25 [id number] 0-[address] (ADMELOG) 00:00: 05:59 3D [...] for 30 days. insulin 2021-04- No 0U [id number] Inject M ethodi lispro 05-25 [id number] 0-[address] (ADMELOG) 00:00: 05:59 3D [...] for 30 days. insulin 2021-04- No 0U [id number] Inject M ethodi lispro 05-25 [id number] 0-[address] (ADMELOG) 00:00: 05:59 3D [...] for 30 days. insulin 2021-04- No 0U [id number] Inject M ethodi lispro 05-25 [id number] 0-[address] (ADMELOG) 00:00: 05:59 3D [...] for 30 days. insulin 2021-04- No 0U [id number] Inject M ethodi lispro 05-25 [id number] 0-[address] (ADMELOG) 00:00: 05:59 3D [...] for 30 days. insulin 2021-04- No 0U [id number] Inject M ethodi lispro 05-25 [id number] 0-[address] (ADMELOG) 00:00: 05:59 3D [...] for 30 days. insulin 2021-04 No 0U [id number] Inject M ethodi lispro 05-25 [id number] 0-[address] (ADMELOG) 00:00: 05:59 3D [...] for 30 days. insulin 2021-04- No 0U [id number] Inject M ethodi lispro 05-25 [id number] 0-[address] (ADMELOG) 00:00: 05:59 3D [...] for 30 days. insulin 2021-04- No 0U [id number] Inject M ethodi lispro 05-25 [id number] 0-[address] (ADMELOG) 00:00: 05:59 3D [...] for 30 days. insulin 2021-04- No 0U [id number] Inject M ethodi lispro 05-25 [id number] 0-[address] (ADMELOG) 00:00: 05:59 3D [...] for 30 days. insulin 2021-04- No 0U [id number] Inject M ethodi lispro 05-25 [id number] 0-[address] (ADMELOG) 00:00: 05:59 3D [...] for 30 days. insulin 2021-04- No 0U [id number] Inject M ethodi lispro 05-25 [id number] 0-[address] (ADMELOG) 00:00: 05:59 3D [...] 20U QD Inject 0.2 Met hodi detemir 05-14 mL (20 st U-100 00:00: 00:00 Units [...] Take 1 Method i (ELIQUIS) 5 2-30 -07 tablet (5 st mg tablet 00:00: 05:59 mg total) [facility] 00 :00 by mouth 2 l (two) times a day for 7 days. apixaban 2021-04- No 5mg Q.5D Take 1 Method i (ELIQUIS) 5 2-30 -07 tablet (5 st mg tablet 00:00: 05:59 mg total) [facility] 00 :00 by mouth 2 l (two) times a day for 7 days. apixaban 2021-04- No 5mg Q.5D Take 1 Method i (ELIQUIS) 5 2-30 -07 tablet (5 st mg tablet 00:00: [...] 30 injection days. insulin 2021-04- No 0U [id number] Inject M ethodi lispro 05-14 [id number] 0-[address] (ADMELOG) 00:00: 00:00 3D [...] 30 injection days. insulin 2021-04- No 0U [id number] Inject M ethodi lispro 05-14 [id number] 0-[address] (ADMELOG) 00:00: 00:00 3D [...] QD Take 1 [facility] (PLAVIX) 75 -24 12-30 tablet (75 s t mg tablet [...] 30 injection days. insulin 2021-04 No 0U [id number] Inject M ethodi lispro 05-14- [id number] 0-[address] (ADMELOG) 00:00: 00:00 3D [...] QD Take 1 [facility] (PLAVIX) 75 -24 12-30 tablet (75 s t mg tablet [...] 30 injection days. insulin 2021-04- No 0U [id number] Inject M ethodi lispro 05-14 [id number] 0-[address] (ADMELOG) 00:00: 00:00 3D [...] 30 injection days. insulin 2021-04- No 0U [id number] Inject M ethodi lispro 05-14 [id number] 0-[address] (ADMELOG) 00:00: 00:00 3D [...] 30 injection days. insulin 2021-04- No 0U [id number] Inject M ethodi lispro 05-14 [id number] 0-[address] (ADMELOG) 00:00: 00:00 3D under the [facility] 100 unit/mL 00 :00 skin 3 l injection (three) times a day before meals for 30 days. gabapentin 2021-04 No 300mg QD Take 1 Met [facility] (NEURONTIN) 05-14-[address] 300 mg 00:00: 00:00 (300 mg Hospita capsule 00 :00 total) by l mouth nightly for 30 days. aspirin 2022-1 2022- No 81mg QD Take 1 [facility] (ECOTRIN) [...] 30 injection days. insulin 2021-04 No 0U [id number] Inject M ethodi lispro 05-14- [id number] 0-[address] (ADMELOG) 00:00: 00:00 3D [...] 30 injection days. insulin 2021-04- No 0U [id number] Inject M ethodi lispro 05-14 [id number] 0-[address] (ADMELOG) 00:00: 00:00 3D [...] 30 injection days. insulin 2021-04- No 0U [id number] Inject M ethodi lispro 05-14 [id number] 0-[address] (ADMELOG) 00:00: 00:00 3D [...] 30 injection days. insulin 2021-04- No 0U [id number] Inject M ethodi lispro 05-14 [id number] 0-[address] (ADMELOG) 00:00: 00:00 3D [...] 30 injection days. insulin 2021-04- No 0U [id number] Inject M ethodi lispro 05-14 [id number] 0-[address] (ADMELOG) 00:00: 00:00 3D [...] 30 injection days. insulin 2021-04 No 0U [id number] Inject M ethodi lispro 05-14 [id number] 0-[address] (ADMELOG) 00:00: 00:00 3D [...] 30 injection days. insulin 2021-04- No 0U [id number] Inject M ethodi lispro 05-14 [id number] 0-[address] (ADMELOG) 00:00: 00:00 3D [...] No 81mg QD Take 1 [facility] (ECOTRIN) 05-1430 tablet (81 st 81 MG 00:00: 00:00 [...] l mouth daily for 30 days. insulin 2021-2021- No 30U QD Inject 0.3 Met hodi detemir 05-14-30 mL (30 st U-100 00:00: 00:00 Units Hospita (Levemir 00 :00 total) l U-100 under the Insulin) skin daily 100 unit/mL for 30 injection days. insulin 2021-04- No 0U [id number] Inject M ethodi lispro 05-14 [id number] 0-[address] (ADMELOG) 00:00: 00:00 3D [...] Q.5D Take 1 [facility] in (Cipro) 24 12-[address] 500 MG 00:00: 05:59 (500 mg Hospita tablet 00 :00 total) by l mouth 2 (two) times a day for 14 days. doxycycline 2021-04- No 50mg Q.5D Take 1 [facility] (VIBRAMYCIN 24 12-[address] ) 50 MG 00:00: [...] 2022-0 202- No metformin [facility] (GLUCOPHAGE 12-14 1,[address] ) 1,000 mg 00:00: 00:00 tablet [facility] tablet 00 :00 Take 1 l tablet twice a day by oral route for 90 days.Stren gth: 1,000 mg metFORMIN 202-0 2022- No metformin [facility] (GLUCOPHAGE 12-14 [...] 2022-0 202- No metformin [facility] (GLUCOPHAGE 12-14 1,[address] ) 1,000 mg 00:00: 00:00 tablet [facility] tablet 00 :00 Take 1 l tablet twice a day by oral route for 90 days.Stren gth: 1,000 mg metFORMIN 2022-0 2022- No metformin [facility] (GLUCOPHAGE 8-26 [...] 90 days.Stren gth: 1,000 mg metFORMIN 2-0 2022- No metformin [facility] (GLUCOPHAGE 12-14 1,[address] ) 1,000 mg 00:00: 00:00 tablet [facility] tablet 00 :00 Take 1 l tablet twice a day by oral route for 90 days.Stren gth: 1,000 mg nicotine 2022-0 2021- No 1{patch QD Place 1 Me [...] :00 daily for l 30 days. nicotine 2- No 1{patch QD Place 1 Me [...] 1{patch QD Place 1 Me [facility] (NICODERM 8- 09-26 } patch on st CQ) 21 00:00: 04:59 [facility] mg/24 hr 00 :00 daily for l 30 days. nicotine 2021- No 1{patch QD Place 1 Me [facility] (NICODERM 8- 0926 } patch on st CQ) 00:00: 04:59 [...] day for 10 days. traMADoL 2021- [place] [id number] 50mg Q6H Take 1 Metho di (ULTRAM) 50 11-08- tablet (50 s t mg tablet 00:00: 04:59 mg total) [facility] 00 :00 by mouth l every 6 (six) hours as needed for moderate pain for up to 7 days .acute pain. traMADoL 2021-2021- [place] 11017 50mg Q6H Take 1 Metho di (ULTRAM) 50 11-08-29 tablet (50 s t mg tablet 00:00: 04:59 mg total) [facility] 00 :00 by mouth l every 6 (six) hours as needed for moderate pain for up to 7 days .acute pain. traMADoL 99822 50mg Q6H Take 1 Metho di (ULTRAM) 50 7-08 11-29 tablet (50 s t mg tablet 00:00: 04:59 mg total) [facility] 00 :00 by mouth l every 6 (six) hours as needed for moderate pain for up to 7 days .acute pain. traMADoL 21798 50mg Q6H Take 1 Metho di (ULTRAM) [...] up to 7 days .acute pain. traMADoL 85370 50mg Q6H Take 1 Metho di (ULTRAM) [...] EXPIRES 28 DAYS AFTER FIRST USE. [facility] 2022-0 Yes Q.25D 4 (four) [facility] Insulin [...] 2021- No INJECT 5 Metho di U-100 - 11-[address] Insulin 100 00:00: 00:00 SUBCUTANEO Hospita unit/mL 00 :00 USLY l subcutaneou BEFORE s vial MEALS. VIAL EXPIRES 28 DAYS AFTER FIRST USE. Lantus 2021- No INJECT 15 Metho di U-100 - 11-[address] [...] 0 days Quantity: 90 {Tablet}Re fills: 0Ordered: [address] [place] [address] t: 2 Lantus 100 No 10{unit Lantus 100 2.16.84 UNIT/ML 3-11 s} UNIT/ML 0.1.113 Subcutaneou 00:00: Subcutaneo 883.4.2 s Solution 00 us Solution; 10 units qhs. for 0 days Quantity: 10 {Millilite r}Refills: 0Ordered: 2[facility] t: 2 True Metrix No 1{Each} True Please 2 .16.84 Blood 3-11 Metrix substitut 0.1.113 Glucose 00:00: Blood e prn. 883.4.2 Test In 00 Glucose Vitro Strip Test In Vitro Strip; 1 (one) Each bid for 0 days Quantity: 60 {Each}Refi lls: 5Ordered: 2Javonpriyanka ELISA Poolesanti t: 2Comments: Please substitute prn. atorvastati Yes Take by Met hodi n (LIPITOR) 3- mouth. st 20 mg 00:00: Hospita tablet [...] No Take by Me thodi n (LIPITOR) 3-03 01-[address] 20 mg 00:00: 00:00 Hospita tablet 00 :00 l atorvastati 2021- No Take by Me th[facility] n (LIPITOR) 3-03 01-[address] 20 mg 00:00: 00:00 [facility]ospita tablet 00 :00 l metFORMIN 2020-04- No Medication 500mg Q.5D Take 1 [facility] (GLUCOPHAGE 005-03 refill tablet by PERORA ) 500 mg 00:00: 23:59 mouth 2 tablet 00 :00 times daily (with meals) for 90 days. metFORMIN 2020-04- No Medication 500mg Q.5D Take 1 [facility] (GLUCOPHAGE 005-03 refill tablet by PERORA ) 500 mg 00:00: 23:59 mouth 2 tablet 00 :00 times daily (with meals) for 90 days. cephalexin 2020-2020- No 500mg [id number] Take 1 [facility] (KEFLEX) 01-0222 [id number] capsule s t 500 MG 00:00: 04:59 3D (500 mg Hospita capsule 00 :00 total) by l mouth 3 (three) times a day for 7 days. cephalexin 2020- No 500mg Q.[id number] Take 1 [facility] (KEFLEX) 9-14 09-22 [id number] capsule s t 500 MG 00:00: 04:59 [...] PO, l hydrochlori 00:46: BID, # 120 Magnet de 500 MG 10 tab, 0 Extended Refill(s), Release Pharmacy: [id number] 120 ACTUAT Yes 2 puff, [place] betty Albuterol 9-15 INHALATION l 0.1 00:46: , QID, # 1 Gu[place] MG/ACTUAT / 00 ea, 0 Ipratropium Refill(s), [id number] MG/ACTUAT [facility] Metered Dose Inhaler [Combivent 20/100] predniSONE Yes 20 mg = 1 Me moria 20 mg oral 9-15 tab, PO, l tablet 00:46: Daily, X 3 Keesha nn 00 day, # 3 tab, 0 Refill(s), Pharmacy: [facility] [id number] [facility] Insulin No 60 units) [place] betty regular 01-02 WASTE: F/P l 21:18: - Black; E - Municipal Trash Bin [...] as: l / 19:00: Duoneb) Ipratropium 00 [place] 0.167 MG/ML Inhalant Solution Enoxaparin No Notes: Memor ia 01-02 (Same as: l 14:00: Lovenox) Ceftriaxone No Notes: [place] betty 01-02 (Same As: l 14:00: Rocephin). Use with 100 mL NS and infuse over 30 min MEDICATION WASTE Product Size: 1000 mg Product Wasted: ___ mg Sodium No 25 mL, Memoria Chloride 01-02 Route: IV, l 0.9% IV 13:53: Start date: 01/03/16 8:53:00 CDT, Duration: 30 day, Stop date: 02/02/16 8:52:00 CDT, PRN Line Flush BD Normal No Notes: Memori a Saline -14 (Same as: l Flush 13:53: BD Magnet 00 Posiflush) BD Normal No Notes: Memori [...] 0.9% 01-02 (Same as: l 08:01: BD Magnet 00 Posiflush) 200 ACTUAT No Notes: Memor ia Albuterol -30 (albuterol l 0.09 20:00: 90 Magnet MG/ACTUAT 00 microgram/ Metered inh 6.7gm Dose [...] PO, l hydrochlori 19:05: BID, # 120 Magnet de 500 MG 00 tab, 0 Extended Refill(s) Release Tablet Clindamycin No Notes: [place] betty 8-30 (Same As: l 19:03: Cleocin) Magnet 00 Tylenol No Notes: Do Memor ia 8-30 not exceed l 17:51: 4 gm/day. Magnet 00 (Same as: Tylenol) Insulin No 60 units) [place] betty regular 830 WASTE: F/P l 13:02: - Black; E [...] Refill(s) Clindamycin No 900 mg, Mem oria 30 Route: l 11:10: IVPB, ONCE, Dosing Weight 78.7, kg, Priority: STAT, Start date: 12/19/15 6:10:00 CDT, Stop date: 12/19/15 6:10:00 CDT Acetaminoph 0 No Notes: [place] betty en 325 MG / 12-18 (Same as: l Hydrocodone 06:19: [place] Keesha nn Bitartrate 00 325/5) Do 5 MG Oral not exceed Tablet 4gm/day of [[place] acetaminop 5/325] hen. Insulin No Notes: Memoria regular 12-12 (Same as: l 05:07: Humulin R Guille 00 and NovoLIN R) WASTE: F/P - Black; E - Municipal Trash Bin (Do not shake) Ativan No 2 mg, Memoria 12-12 Route: PO, l 04:14: Drug form: Magnet 00 TAB, ONCE, Dosing Weight 93.182, kg, [...] Immunization Name Immunization Name Pneumococcal 2022-04-19 Completed [facility] 20-valent Conjugate 00:00:00 [facility] Vaccine FLUCELVAX QUAD 2022-04-[address] 00:00:00 [facility] Pneumococcal 2022-04-19 Completed Uatsdin 20-valent Conjugate 00:00:00 Hospi amber Vaccine FLUCELVAX QUAD 2022-04-[address] 00:00:00 [facility] Pneumococcal 2022-04-19 Completed [facility]atsdin 20-valent Conjugate 00:00:00 [facility]pi [facility] Vaccine FLUCELVAX QUAD 2022-04-[address] 00:00:00 Hospital Pneumococcal 2022-04-19 Completed [facility] 20-valent Conjugate 00:00:00 [facility] Vaccine FLUCELVAX QUAD PF 2022-04-[address] 00:00:00 Hospital Pneumococcal 2022-04-19 Completed [facility] 20-valent Conjugate 00:00:00 [facility] Vaccine FLUCELVAX QUAD PF 2022-04-[address] 00:00:00 Hospital Pneumococcal 2022-04-19 Completed [facility] 20-valent Conjugate 00:00:00 [facility] Vaccine FLUCELVAX QUAD PF 2022-04-[address] 00:00:00 Hospital Pneumococcal 2022-04-19 Completed [facility] 20-valent Conjugate 00:00:00 [facility] Vaccine FLUCELVAX QUAD 2022-04-[address] 00:00:00 [facility] Pneumococcal 2022-04-19 Completed [facility] 20-valent Conjugate 00:00:00 Hospi amber Vaccine FLUCELVAX QUAD 2022-04-[address] 00:00:00 Hospital Pneumococcal 2022-04-19 Completed [facility] 20-valent Conjugate 00:00:00 [facility] Vaccine FLUCELVAX QUAD PF 2022-04-[address] 00:00:00 [facility] Pneumococcal 2022-04-19 Completed [facility] 20-valent Conjugate 00:00:00 [facility]pi amber Vaccine FLUCELVAX QUAD 2022-04-[address] 00:00:00 [facility] TDAP 2021-09-30 Completed [facility] 00:00:00 [facility] TDAP 2021-09-30 Completed [facility] 00:00:00 [facility] TDAP 2021-09-30 Completed [facility] 00:00:00 [facility] TDAP 2021-09-30 Completed [facility] 00:00:00 [facility] TDAP 2021-09-30 Completed [facility] 00:00:00 [facility] TDAP 2021-09-30 Completed [facility] 00:00:00 [facility] TDAP 2021-09-30 Completed [facility] 00:00:00 [facility] TDAP 2021-09-30 Completed [facility] 00:00:00 [facility] TDAP 2021-09-30 Completed [facility] 00:00:00 [facility] TDAP 2021-09-30 Completed [facility] 00:00:00 [facility] TDAP 2021-09-30 Completed [facility] 00:00:00 [facility] TDAP 2021-09-30 Completed [facility] 00:00:00 [facility] TDAP 2021-09-30 Completed [facility] 00:00:00 [facility] TDAP 2021-09-30 Completed [facility] 00:00:00 [facility] TDAP 2021-09-30 Completed [facility] 00:00:00 [facility] TDAP 2021-09-30 Completed [facility] 00:00:00 [facility] TDAP 2016-12-31 Completed [facility] 00:00:00 [facility] TDAP 2016-12-31 Completed [facility] 00:00:00 [facility] TDAP 2016-12-31 Completed [facility] 00:00:00 [facility] TDAP 2016-12-31 Completed [facility] 00:00:00 [facility] TDAP 2016-12-31 Completed [facility] 00:00:00 [facility] TDAP 2016-12-31 Completed [facility] 00:00:00 [facility] TDAP 2016-12-31 Completed [facility] 00:00:00 [facility] TDAP 2016-12-31 Completed [facility] 00:00:00 [facility] TDAP 2016-12-31 Completed [facility] 00:00:00 [facility] TDAP 2016-12-31 Completed [facility] 00:00:00 [facility] TDAP 2016-12-31 Completed [facility] 00:00:00 [facility] TDAP 2016-12-31 Completed [facility] 00:00:00 [facility] TDAP 2016-12-31 Completed [facility] 00:00:00 [facility] TDAP 2016-12-31 Completed [facility] 00:00:00 [facility] TDAP 2016-12-31 Completed [facility] 00:00:00 [facility] TDAP 2016-12-31 Completed [facility] 00:00:00 [facility] pneumococcal 2016-01-04 Completed [facility] 23-valent vaccine 01:30:00 influenza virus 2016-01-04 Completed [facility] vaccine, 01:26:00 inactivated Pneumococcal Unknown Completed [facility] 20-valent Conjugate [facility] Vaccine FLUCELVAX QUAD PF Unknown Completed [facility] Pneumococcal Unknown Completed [facility] 20-valent Conjugate [facility]pi [facility] Vaccine FLUCELVAX QUAD PF Unknown Completed [facility] Pneumococcal Unknown Completed [facility] 20-valent Conjugate Hospi amber Vaccine FLUCELVAX QUAD PF Unknown Completed [facility] Pneumococcal Unknown Completed [facility] 20-valent Conjugate Hospi [facility]ber Vaccine FLUCELVAX QUAD PF Unknown [facility] Vital Signs Vital Name Observation Time Observation Value Comments Source Systolic blood 2022-12-16 95 mm[Hg] [facility] of pressure 18:13:00 [facility] Diastolic blood 2022-12-16 61 mm[Hg] University o f pressure 18:13:00 [facility] Heart rate 2022-12-16 61 /min [facility] 18:13:00 [facility] Body temperature 2022-12-16 36.33 Jaqueline University [facility] 18:13:00 [facility] Respiratory rate 2022-12-16 20 /min [facility] 18:13:00 [facility] Body weight 2022-12-16 86.183 kg University of 18:13:00 [facility] BMI 2022-12-16 57.98 kg/m2 University of 18:13:00 [facility] Oxygen saturation 2022-12-16 91 /min University in Arterial blood 18:13:00 [facility] Pulse oximetry Branch Systolic blood 2022-11-06 96 mm[Hg] [facility] pressure 18:56:00 [facility] Diastolic blood 2022-11-06 65 mm[Hg] University o f pressure 18:56:00 [facility] Heart rate 2022-11-06 56 /min [facility] 18:56:00 [facility] Respiratory rate 2022-11-06 18 /min [facility] 18:56:00 [facility] Body height 2022-11-06 121.9 cm University of 18:56:00 [facility] Systolic blood 2022-11-06 96 mm[Hg] University of pressure 18:21:00 [facility] Diastolic blood 2022-11-06 56 mm[Hg] University o f pressure 18:21:00 [facility] Heart rate 2022-11-06 56 /min [facility] 18:21:00 [facility] Respiratory rate 2022-11-06 18 /min [facility] 18:21:00 [facility] Body height 2022-11-06 121.9 cm University of 18:21:00 [facility] Body weight 2022-11-06 86.183 kg University of 18:21:00 [facility] BMI 2022-11-06 57.98 kg/m2 University of 18:21:00 [facility] Oxygen saturation 2022-11-06 96 /min [place] of in Arterial blood 18:21:00 [facility] by Pulse oximetry Branch Systolic blood 2022-09-13 113 mm[Hg] University of pressure 03:30:00 [facility] Diastolic blood 2022-09-13 59 mm[Hg] University o f pressure 03:30:00 [facility] Heart rate 2022-09-13 62 /min [facility] of 03:30:00 [facility] Respiratory rate 2022-09-13 17 /min [facility] 03:30:00 [facility] Oxygen saturation 2022-09-13 96 /min [facility] in Arterial blood 03:30:00 [facility] by Pulse oximetry Branch Body temperature 2022-09-13 37.11 Jaqueline University [facility] 02:29:00 [facility] Body height 2022-09-13 121.9 cm University of 02:29:00 [facility] Body weight 2022-09-13 87.544 kg University of 02:29:00 [facility] BMI 2022-09-13 58.89 kg/m2 University of 02:29:00 [facility] Systolic blood 2022-09-12 100 mm[Hg] [facility] of pressure 18:47:00 [facility] Diastolic blood 2022-09-12 67 mm[Hg] University o f pressure 18:47:00 [facility] Heart rate 2022-09-12 58 /min [facility] 18:47:00 [facility] Body temperature 2022-09-12 36.17 Jaqueline [facility] 18:47:00 [facility] Body weight 2022-09-12 87.544 kg University of 18:47:00 [facility] BMI 2022-09-12 58.89 kg/m2 University of 18:47:00 [facility] Oxygen saturation 2022-09-12 97 /min [place] of in Arterial blood 18:47:00 [facility] by Pulse oximetry Branch Systolic blood 2022-08-14 122 mm[Hg] University of pressure 07:31:00 [facility] Diastolic blood 2022-08-14 55 mm[Hg] University o f pressure 07:31:00 [facility] Heart rate 2022-08-14 55 /min [facility] of 07:31:00 [facility] Respiratory rate 2022-08-14 15 /min [facility] 07:31:00 [facility] Oxygen saturation 2022-08-14 94 /min [facility] in Arterial blood 07:31:00 [facility] by Pulse oximetry Branch Body temperature 2022-08-14 37 Jaqueline University [facility] 05:10:00 [facility] Body height 2022-08-14 121.9 cm "without my University of 05:10:00 legs" [facility] Body weight 2022-08-14 81.647 kg University of 05:10:00 [facility] BMI 2022-08-14 54.93 kg/m2 University of 05:10:00 [facility] Systolic blood 2022-08-05 175 mm[Hg] University of pressure 18:25:00 [facility] Diastolic blood 2022-08-05 71 mm[Hg] University o f pressure 18:25:00 [facility] Heart rate 2022-08-05 60 /min [facility] 18:24:00 [facility] Body temperature 2022-08-05 36.67 Jaqueline [facility] 18:24:00 [facility] Respiratory rate 2022-08-05 18 /min [facility] of 18:24:00 [facility] Body height 2022-08-05 121.9 cm University of 18:24:00 [facility] Oxygen saturation 2022-08-05 100 /min University of in Arterial blood 18:24:00 [facility] by Pulse oximetry Branch Systolic blood 2022-07-31 130 mm[Hg] University of pressure 21:05:00 [facility] Diastolic blood 2022-07-31 47 mm[Hg] University o f pressure 21:05:00 [facility] Heart rate 2022-07-31 61 /min [facility] of 21:05:00 [facility] Body temperature 2022-07-31 36.83 Jaqueline [facility] 21:05:00 [facility] Respiratory rate 2022-07-31 16 /min [facility] of 21:05:00 [facility] Oxygen saturation 2022-07-31 99 /min University of in Arterial blood 21:05:00 [facility] dilshad by Pulse oximetry Branch Body height 2022-07-29 121.9 cm [facility] University [facility] 15:00:00 [facility] Body weight 2022-07-28 92 kg University of 07:00:00 [facility] BMI 2022-07-28 61.89 kg/m2 University 07:00:00 [facility] Systolic blood 2022-07-19 116 mm[Hg] University of pressure 06:20:00 [facility] Diastolic blood 2022-07-19 82 mm[Hg] [place] o f pressure 06:20:00 [facility] Heart rate 2022-07-19 54 /min [facility] 06:20:00 [facility] Body temperature 2022-07-19 36.5 Jaqueline [facility] 06:20:00 [facility] Respiratory rate 2022-07-19 16 /min [facility] 06:20:00 [facility] Oxygen saturation 2022-07-19 95 /min [facility] Arterial blood 06:20:00 [facility] by Pulse oximetry [place] Body height 2022-07-19 121.9 cm [facility] 02:38:00 [facility] Body weight 2022-07-19 79.379 kg [facility] 02:38:00 [facility] BMI 2022-07-19 53.40 kg/m2 [facility] 02:38:00 [facility] Temperature 2021-06-29 97 [degF] Method: Oral [id number] 8 13:17:12 3.4.2 Pulse 2021-06-29 77 /min Pattern: [id number] 8 13:17:12 Regular 3.4.2 Respiration Rate 2021-06-29 18 /min Pattern: [id number] 13:17:12 Unlabored 3.4.2 BP Systolic 2021-06-29 139 mm[Hg] Patient [id number] 8 13:17:12 Position: 3.4.2 Sitting; Cuff Location: Left Arm; Cuff Size: Standard BP Diastolic 2021-06-29 82 mm[Hg] Patient [id number] 8 13:17:12 Position: 3.4.2 Sitting; Cuff Location: Left Arm; Cuff Size: Standard Systolic blood 2022-07-03 122 mm[Hg] [facility] pressure 17:14:00 Hospital Diastolic blood 2022-07-03 57 mm[Hg] [facility] pressure 17:14:00 Hospital Heart rate 2022-07-03 64 /min [facility] 17:14:00 Hospital Body temperature 2022-07-03 37 Jaqueline [facility] 16:20:31 Hospital Respiratory rate 2022-07-03 21 /min [facility] 16:20:31 Hospital Oxygen saturation 2022-07-03 98 /min [facility] in Arterial blood 16:20:31 Hospital by Pulse oximetry Body height 2022-06-29 170.2 cm [facility] 02:00:00 Hospital Body weight 2022-06-28 81.149 kg [facility] 12:00:00 Hospital BMI 2022-06-28 28.02 kg/m2 [facility] 12:00:00 Hospital Systolic blood 2021-12-14 140 mm[Hg] [facility] pressure 16:16:14 Hospital Diastolic blood 2021-12-14 72 mm[Hg] [facility] pressure 16:16:14 Hospital Heart rate 2021-12-14 74 /min [facility] 16:16:14 Hospital Body temperature 2021-12-14 36.22 Jaqueline [facility] 16:16:14 Hospital Respiratory rate 2021-12-14 20 /min [facility] 16:16:14 Hospital Oxygen saturation 2021-12-14 100 /min [facility] in Arterial blood 16:16:14 Hospital by Pulse oximetry Body height 2021-12-11 170.2 cm [facility] 22:35:00 Hospital Body weight 2021-12-11 88.451 kg [facility] 22:35:00 Hospital BMI 2021-12-11 30.54 kg/m2 [facility] 22:35:00 [facility] Systolic blood 2021-02-02 153 mm[Hg] [facility] pressure 16:00:00 Diastolic blood 2021-02-02 79 mm[Hg] [facility] h pressure 16:00:00 Heart rate 2021-02-02 84 /min [facility] 16:00:00 Body temperature 2021-02-[address] [facility] 16:00:00 Respiratory rate 2021-02-02 18 /min [facility] 16:00:00 Oxygen saturation 2021-02-02 97 /min [facility] in Arterial blood 16:00:00 by Pulse oximetry Body height 2021-02-02 177.8 cm [facility] 14:44:00 Body weight 2021-02-02 81.647 kg [facility] 14:44:00 BMI 2021-02-02 25.83 kg/m2 [facility] 14:44:00 Temperature Oral 2016-02-16 98 F [...] n 03:33:00 Temperature Oral 2015-12-19 98.8 F [facility] (F) 03:33:00 Respitory Rate 2015-12-19 [facility] 03:33:00 Heart Rate 2015-12-19 [facility] 03:33:00 Systolic (mm Hg) 2015-12-19 [facility] 03:33:00 Diastolic (mm Hg) 2015-12-19 [facility] 03:33:00 Respitory Rate 2015-12-13 [facility] 10:42:00 Systolic (mm Hg) 2015-12-13 [facility] 10:42:00 Diastolic (mm Hg) 2015-12-13 [facility] ermann 10:42:00 Heart Rate 2015-12-13 [facility] n 10:42:00 Systolic (mm Hg) 2015-12-13 [facility] 08:15:00 Diastolic (mm Hg) 2015-12-13 [facility] ermann 08:15:00 Respitory Rate 2015-12-13 [facility] [...] n 03:44:00 Temperature Oral 2015-12-13 98.8 F [facility] rmann (F) 03:44:00 Procedures Procedure Date / Time Performing Clinician Source Performed REFERRAL- 2022-12-24 05:01:00 Doctor Unassigned, No [facility] REQUEST/RESPONSE Name [facility] FREE T4 2022-12-16 18:56:00 Alexandra Finnegan [facility] THYROID STIMULATING 2022-12-16 18:56:00 Alexandra Finnegan [facility] HORMONE [facility] COMP. METABOLIC PANEL 2022-12-16 18:56:00 Alexandra Finnegan [facility] ([id number]) [facility] LIPID PANEL ([id number])(TOTAL 2022-12-16 18:56:00 [facility], [facility] TRIGLYCERIDES, HDL) CBC WITH DIFF 2022-12-16 18:56:00 Alexandra Finnegan [facility] GLYCOSYLATED HEMOGLOBIN 2022-12-16 18:56:00 Alexandra Finnegan [facility] (A1C) Medical Branch INSURANCE CORRESPONDENCE 2022-11-08 05:01:00 Doctor Unassigned, No [facility] HOME HEALTH - OTHER 2022-09-25 05:01:00 [facility]assigned, [facility] LEAD 2022-09-13 03:45:38 Hui Paez [facility] BASIC METABOLIC PANEL 2022-09-13 02:46:00 Hui Paez [facility] (NA, K, CL, CO2, GLUCOSE, Medica l Branch BUN, CREATININE, CA) CONSENT/REFUSAL FOR 2022-09-13 02:24:56 Doctor Unassigned, No [facility] DIAGNOSIS AND TREATMENT Name [facility] XR LUMBAR SPINE 5 VW 2022-09-12 20:57:55 Alexandra Finnegan [facility] XR HIPS 3 VW LEFT 2022-09-12 20:57:55 Alexandra Finnegan [facility] PROSTATIC SPECIFIC 2022-09-12 19:52:00 Alexandra Finnegan [facility] ANTIGEN [facility] FREE T4 2022-09-12 19:52:00 Alexandra Finnegan [facility] THYROID STIMULATING 2022-09-12 19:52:00 Alexandra Finnegan [facility] HORMONE [facility] COMP. METABOLIC PANEL 2022-09-12 19:52:00 Alexandra Finnegan [facility] ([id number]) Medical Branch LIPID PANEL ([id number])(TOTAL 2022-09-12 19:52:00 Alexandra [facility] CHOLESTEROL, [facility] TRIGLYCERIDES, HDL) CBC WITH DIFF 2022-09-12 19:52:00 [facility] GLYCOSYL[facility] HEMOGLOBIN 2022-09-12 19:52:00 Alexandra Finnegan [facility] (A1C) Medical Branch URINALYSIS 2022-09-12 19:52:00 Dinh [facility] DME/SUPPLY JUSTIFICATION 2022-09-04 05:01:00 Doctor Unassigned, No [facility] HOME HEALTH - OTHER 2022-08-26 05:01:00 Doctor Unassigned, No [facility] POCT GLUCOSE (AUTOMATED) 2022-08-14 07:28:00 Les Ellsworth [facility] URINE DRUG (IMMUNOASSAY) 2022-08-14 06:10:00 eLs Ellsworth [facility] - COMPREHENSIVE DRUG Medical [facility] nc SCREEN URINALYSIS 2022-08-14 06:10:00 Les Ellsworth [facility] BASIC METABOLIC PANEL 2022-08-14 05:43:00 Les Ellsworth [facility] (NA, K, CL, CO2, GLUCOSE, Medica l Branch BUN, CREATININE, CA) CBC WITH DIFF 2022-08-14 05:43:00 Les Ellsworth [facility] LACTIC ACID WHOLE BLOOD 2022-08-14 05:43:00 Les Ellsworth [facility] CONSENT/REFUSAL FOR 2022-08-14 05:01:57 Doctor Unassigned, No [facility] D[facility] 2022-08-07 05:01:00 Doctor Unassigned, No [facility] HOME HEALTH 485 2022-08-02 05:01:00 Doctor Unassigned, No [facility] POCT GLUCOSE (AUTOMATED) 2022-07-31 22:26:00 Malik Mayo [facility] POCT GLUCOSE (AUTOMATED) 2022-07-31 17:13:00 Mayo Malik [facility] POCT GLUCOSE (AUTOMATED) 2022-07-31 01:46:00 Mayo, [facility] POCT GLUCOSE (AUTOMATED) 2022-07-30 23:16:00 Mayo Malik [facility] POCT GLUCOSE (AUTOMATED) 2022-07-30 18:42:00 Mayo [facility] POCT GLUCOSE (AUTOMATED) 2022-07-30 14:18:00 Mayo Malik [facility] MAGNESIUM 2022-07-30 10:58:00 Kelsey [facility] BASIC METABOLIC PANEL 2022-07-30 10:58:00 Kelsey [facility] (NA, K, CL, CO2, GLUCOSE, Medica l Branch BUN, CREATININE, CA) CBC WITH DIFF 2022-07-30 10:58:00 Kelsey [facility] POCT GLUCOSE (AUTOMATED) 2022-07-30 01:36:00 Mayo, [facility] POCT GLUCOSE (AUTOMATED) 2022-07-29 22:43:00 Mayo [facility] POCT GLUCOSE (AUTOMATED) 2022-07-29 18:35:00 Gael [facility] IRON PANEL 2022-07-29 17:06:00 Kelsey [facility] CT ANGIOGRAM LOWER 2022-07-29 16:36:24 Yordy Thornton [facility] EXTREMITY LEFT W CONTRAST Medica l Branch ACTIVATED PARTIAL 2022-07-29 13:53:00 Yordy Thornton [facility] THRMPLAS BRODY [facility] POCT GLUCOSE (AUTOMATED) 2022-07-29 13:45:00 Gael [facility] MAGNESIUM 2022-07-29 10:36:00 Eloy Smalls o f [facility] FERRITIN SERUM 2022-07-29 10:36:00 Kelsey [facility] HEPATIC FUNCTION PANEL 2022-07-29 10:36:00 Eloy Smalls [facility] ([id number]) (ALB,T.PRO,BILI Medical Branch T,BU/BC,ALT,AST,ALK PHOS) BASIC METABOLIC PANEL 2022-07-29 10:36:00 Slim [facility] (NA, K, CL, CO2, GLUCOSE, Medica l Branch BUN, CREATININE, CA) CBC WITH DIFF 2022-07-29 10:36:00 [facility] PARTIAL 2022-07-29 07:13:00 Yordy Thornton [facility] URINALYSIS 2022-07-29 01:44[facility]INE RANDOM 2022-07-29 01:44:00 Darius [facility] UREA NITROGEN, URINE 2022-07-29 01:44:00 Darius [facility] SODIUM, URINE RANDOM 2022-07-29 01:44:00 Darius [facility] POCT GLUCOSE (AUTOMATED) 2022-07-29 01:17:00 Malik [facility] POCT GLUCOSE (AUTOMATED) 2022-07-28 21:09:00 Brennan Love [facility] BASIC METABOLIC PANEL 2022-07-28 19:01:00 [facility] (NA, K, CL, CO2, GLUCOSE, Medica l Branch BUN, CREATININE, CA) ACTIVATED PARTIAL 2022-07-28 19:01:00 Yordy Thornton [facility] POCT GLUCOSE (AUTOMATED) 2022-07-28 17:12:00 Brennan Love [facility] BASIC METABOLIC PANEL 2022-07-28 14:28:00 [facility] (NA, K, CL, CO2, GLUCOSE, Medica l Branch BUN, CREATININE, CA) ACTIVATED PARTIAL 2022-07-28 14:28:00 Yordy Thornton [facility] POCT GLUCOSE (AUTOMATED) 2022-07-28 12:52:00 Brennan Love [facility] HB ECG ROUTINE & RHYTHM 2022-07-28 10:09:24 Scooter Barroso [facility] STRIP Fahad [facility] CREATINE KINASE 2022-07-28 08:02:00 Yordy Thornton [facility] C-REACTIVE PROTEIN 2022-07-28 08:02:00 Yordy Thornton [facility] COMP. METABOLIC PANEL 2022-07-28 08:02:00 Yordy Thornton [facility] ([id number]) [facility] VANCOMYCIN RANDOM LEVEL 2022-07-28 08:02:00 Yordy Thornton [facility] SEDIMENTATION RATE 2022-07-28 08:02:00 Yordy Thornton [facility] CBC WITH DIFF 2022-07-28 08:02:00 Yordy Thornton [facility] GLYCOSYLATED HEMOGLOBIN 2022-07-28 08:02:00 Yordy Thornton [facility] (A1C) [facility] PROTHROMBIN TIME / INR 2022-07-28 08:02:00 Yordy Thornton [facility] ACTIVATED PARTIAL 2022-07-28 08:02:00 Yordy Thornton [facility] MRSA / MSSA SCREEN BY 2022-07-28 08:02:00 Yordy Thornton [facility]SE (AUTOMATED) 2022-07-28 08:01:00 Brennan Love [facility] COMP. METABOLIC PANEL 2022-07-19 02:58:00 Adolfo Hurley [facility] ([id number]) [facility] CBC WITH DIFF 2022-07-19 02:58:00 Adolfo Hurley [facility] NOTICE OF PRIVACY 2022-07-19 02:27:02 Doctor Unassigned, No [facility] PRACTICES Name [facility] CONSENT/REFUSAL FOR 2022-07-19 02:25:51 Doctor Unassigned, No [facility] DI[facility]IS [facility] TREATMENT Name Medical Branch POC GLUCOSE 2022-07-03 16:21:00 Edmund Cartagenanicole [facility] POC GLUCOSE 2022-07-03 12:18:00 Edmund Cartagenanicole [facility] POC GLUCOSE 2022-07-03 01:29:00 Edmund Cartagenanicole [facility] POC GLUCOSE 2022-07-02 21:46:00 Edmund Cartagenanicole [facility] POC GLUCOSE 2022-07-02 16:16:00 Zara Cartagenaenzo [facility] POC GLUCOSE 2022-07-02 12:16:00 Zara Cartagenaenzo [facility] BASIC METABOLIC PANEL 2022-07-02 10:11:00 Nelda [facility] ESTIMATED GFR 2022-07-02 10:11:00 [facility] spital POC GLUCOSE 2022-07-02 01:23:00 Francesca Stevens spital POC GLUCOSE 2022-07-01 21:46:00 Francesca Stevens spital XR CHEST 1 VW PORTABLE 2022-07-01 20:15:43 Hilda [facility] PICC INSERTION REQUEST 2022-07-01 20:09:45 Michelle [facility] POC GLUCOSE 2022-07-01 16:17:00 Francesca Stevens spital CARBAPENEMASE GENES 2022-07-01 16:15:00 Hilda [facility] POC GLUCOSE 2022-07-01 12:23:00 Francesca Stevens spital VANCOMYCIN LEVEL, RANDOM 2022-07-01 11:14:00 Wilberto Joe [facility] POC GLUCOSE 2022-07-01 01:24:00 Francesca Stevens spital POC GLUCOSE 2022-06-30 22:08:00 Francesca Stevens spital POC GLUCOSE 2022-06-30 16:12:00 Francesca Stevens spital CARBAPENEMASE GENES 2022-06-30 15:00:00 Hilda [facility] POC GLUCOSE 2022-06-30 12:23:00 Francesca Stevens spital BASIC METABOLIC PANEL 2022-06-30 11:31:00 Hilda [facility] CBC WITH PLATELET AND 2022-06-30 11:31:00 Hilda [facility] DIFFERENTIAL ESTIMATED GFR 2022-06-30 11:31:00 Francesca Stevens [facility] POC GLUCOSE 2022-06-30 01:47:00 Francesca Stevens [facility] POC GLUCOSE 2022-06-29 22:47:00 YounFrancesca mathew [facility] POC GLUCOSE 2022-06-29 17:19:00 YounFrancesca mathew Ho [facility]ital POC GLUCOSE 2022-06-29 13:13:00 YounFrancesca mathew Ho [facility] POC GLUCOSE 2022-06-29 02:41:00 YounFrancesca mathew [facility] POC GLUCOSE 2022-06-28 22:40:00 YounFrancesca mathew Ho [facility]ital POC GLUCOSE 2022-06-28 17:47:00 YounFrancesca mathew [facility] POC GLUCOSE 2022-06-28 13:30:00 Francesca Stevens [facility] BASIC METABOLIC PANEL 2022-06-28 12:11:00 Hilda [facility] ESTIMATED GFR 2022-06-28 12:11:00 Francesca Stevens [facility]ital POC GLUCOSE 2022-06-28 02:28:00 YounFrancesca mathew Ho spital POC GLUCOSE 2022-06-27 22:12:00 YounFrancesca mathew [facility] POC GLUCOSE 2022-06-27 17:26:00 YounFrancesca mathew [facility] POC GLUCOSE 2022-06-27 13:29:00 YounFrancesca mathew [facility] POC GLUCOSE 2022-06-27 02:09:00 YounFrancesca mathew [facility] POC GLUCOSE 2022-06-26 23:37:00 Francesca Stevens spital FUNGUS CULTURE 2022-06-26 23:17:00 Davin Walker spital AFB CULTURE 2022-06-26 23:17:00 Davin Walker spital GRAM STAIN 2022-06-26 23:17:00 Davin Walker spital AFB STAIN 2022-06-26 23:17:00 Nurko, [facility] spital AFB CULTURE 2022-06-26 23:09:00 Cassidy, [facility] spital FUNGUS SMEAR 2022-06-26 23:09:00 Cassidy, [facility] spital AF[employer] STAIN 2022-06-26 23:09:00 Cassidy, [facility] spital FUNGUS CULTURE 2022-06-26 23:09:00 Cassidy, [facility] spital MA AN ELECTIVE 2022-06-26 22:52:00 Jonathan Danielle [facility] SUPRAGLOTTIC AIRWAY DEBRIDEMENT, LOWER 2022-06-26 22:30:00 [facility] EXTREMITY ANAEROBIC CULTURE 2022-06-26 22:17:00 [facility] AEROBIC CULTURE 2022-06-26 22:17:00 [facility], [facility] spital TISSUE CULTURE 2022-06-26 22:09:00 Cassidy[facility] 2022-06-26 22:09:00 [facility] POC GLUCOSE 2022-06-26 21:46:00 Francesca Stevens spital POC GLUCOSE 2022-06-26 18:45:00 [facility] VANCOMYCIN LEVEL, RANDOM 2022-06-26 15:33:[address] [facility] POC GLUCOSE 2022-06-26 14:15:00 [facility] CBC WITH PLATELET AND 2022-06-26 11:43:00 Brian Powell [facility] DIFFERENTIAL BASIC METABOLIC PANEL 2022-06-26 11:43:00 Brian Powell [facility] MAGNESIUM LEVEL 2022-06-26 11:43:[address] [facility] PROTHROMBIN TIME WITH INR 2022-06-26 11:43:00 Louisa Escobar [facility] ESTIMATED GFR 2022-06-26 11:43:00 Brian Powell [facility] POC GLUCOSE 2022-06-26 02:46:00 Francesca Stevensist Ho spital LACTIC ACID LEVEL, SEPSIS 2022-06-26 02:02:00 [facility] ell[facility] - NOW AND REPEAT 2X EVERY 3 HOURS POC GLUCOSE 2022-06-25 22:12:00 Francesca Stevensist Ho spital LACTIC ACID LEVEL, SEPSIS 2022-06-25 22:06:00 [facility]bright[facility] hospitalBrian ellis [facility] - NOW AND REPEAT 2X EVERY 3 HOURS ECG 12-LEAD 2022-06-25 19:43:10 [facility] INFLUENZA ANTIGEN TEST, 2022-06-25 19:18:[address] [facility] REFLEX NEGATIVE TO RPP RESPIRATORY PATHOGEN 2022-06-25 19:18:[address] [facility] PANEL WITH COVID-19 RT-PCR METHICILLIN-RESISTANT 2022-06-25 19:15:[address] [facility] STAPHYLOCOCCUS AUREUS (MRSA), LEILANI LACTIC ACID LEVEL, SEPSIS 2022-06-25 19:01:00 [facility] hospitalBrian [facility] - NOW AND REPEAT 2X EVERY 3 HOURS XR CHEST 1 VW PORTABLE 2022-06-25 18:53:[address] [facility] Hospital[facility] XR FEMUR 2 VW LEFT 2022-06-25 18:52:28 [facility]Brian[facility] BLOOD CULTURE, AEROBIC & 2022-06-25 18:05:[address] [facility] ANAEROBIC BLOOD CULTURE, AEROBIC & 2022-06-25 18:00:[address] [facility] ANAEROBIC CBC WITH PLATELET AND 2022-06-25 17:56:00 [facility] DIFFERENTIAL COMPREHENSIVE METABOLIC 2022-06-25 17:56:[address] [facility] PANEL PROTHROMBIN TIME WITH INR 2022-06-25 17:56:[address] [facility] HospitalChloest. francis medical centermichelle [facility] ESTIMATED GFR 2022-06-25 17:56:[address] [facility], [facility] MAGNESIUM LEVEL 2022-06-25 17:56:00 [facility] 2022-06-25 17:06:00 Francesca Stevens [facility] spital POC GLUCOSE 2022-05-14 17:15:00 [facility] NEED PHYS 2022-05-14 16:30:00 Zechariah Washington [facility] SKILL,DX OR RX POC GLUCOSE 2022-05-14 13:17:00 [facility] CBC WITH PLATELET AND 2022-05-14 11:43:00 [facility]FFER[facility] BASIC METABOLIC PANEL 2022-05-14 11:43:00 [facility] ESTIMATED GFR 2022-05-14 11:43:[facility] 2022-05-14 02:36:00 [facility] POC GLUCOSE 2022-05-13 22:14:00 [facility] POC GLUCOSE 2022-05-13 17:21:00 [facility] POC GLUCOSE 2022-05-13 13:25:00 [facility] CBC WITH PLATELET AND 2022-05-13 11:23:00 [facility] BASIC METABOLIC PANEL 2022-05-13 11:23:00 [facility] ESTIMATED GFR 2022-05-13 11:23:00 [facility] P[facility]SE 2022-05-13 02:26:00 [facility] POC GLUCOSE 2022 22:54:00 [facility] POC GLUCOSE 2022 17:23:00 [facility] POC GLUCOSE 2022 13:33:00 [facility] CBC WITH PLATELET AND 2022 10:15:00 [facility] DIFFERENTIAL BASIC METABOLIC PANEL 2022 10:15:00 [facility] ESTIMATED GFR 2022 10:15:00 [facility] POC GLUCOSE 2022 03:36:00 [facility] POC GLUCOSE 2022-05-11 22:17:00 [facility] BLOOD CULTURE, AEROBIC & 2022-05-11 21:45:00 Nancy [facility] ANAEROBIC BLOOD CULTURE, AEROBIC & 2022-05-11 21:28:00 Nancy [facility] ANAEROBIC POC GLUCOSE 2022-05-11 17:11:00 Harinder, [facility] POC GLUCOSE 2022-05-11 13:14:00 [facility] CBC WITH PLATELET AND 2022-05-11 10:35:00 [facility] DIFFERENTIAL BASIC METABOLIC PANEL 2022-05-11 10:35:00 [facility] ESTIMATED GFR 2022-05-11 10:35:00 [facility] P[facility]UCOSE 2022-05-11 02:33:00 [facility] POC GLUCOSE 2022-05-10 22:49:00 [facility] BLOOD CULTURE, AEROBIC & 2022-05-10 22:13:00 Nancy [facility] ANAEROBIC HC NERVE BLOCK INJ 2022-05-10 19:31:21 [facility] IMG GUID HC ANESTH SCIATIC NERVE 2022-05-10 19:23:41 [facility] P[facility]SE 2022-05-10 18:34:00 [facility] SURGICAL PATHOLOGY 2022-05-10 18:13:00 [facility] REQUEST MA AN ELECTIVE 2022-05-10 17:24:00 Mari Gamboa [facility] SUPRAGLOTTIC AIRWAY AMPUTATION, BELOW KNEE 2022-05-10 16:57:00 Davin Walker [facility] POC GLUCOSE 2022-05-10 15:58:00 [facility] TTE COMPLETE, WO 2022-05-10 14:38:42 Mi Cruz [facility] CONTRAST, W DOPPLER ([id number]) POC GLUCOSE 2022-05-10 13:14:00 Harinder, [facility] CBC WITH PLATELET AND 2022-05-10 12:19:00 [facility] DIFFERENTIAL BASIC METABOLIC PANEL 2022-05-10 12:19:00 [facility] PARTIAL THROMBOPLASTIN 2022-05-10 12:19:00 [facility] TIME (PTT) PROTHROMBIN TIME WITH INR 2022-05-10 12:19:00 [facility] ESTIMATED GFR 2022-05-10 12:19:00 [facility] POC GLUCOSE 2022-05-10 03:02:00 [facility] POC GLUCOSE 2022-05-09 22:30:00 [facility] POC GLUCOSE 2022-05-09 18:05:00 [facility] US ANKLE BRACHIAL INDEX 2022-05-09 17:33:01 Jenna [facility] VANCOMYCIN LEVEL, RANDOM 2022-05-09 16:42:00 Kenneth Farr [facility] Scooter POC GLUCOSE 2022-05-09 13:14:00 Harinder, [facility] CBC WITH PLATELET AND 2022-05-09 11:25:00 Gail West [facility] DIFFERENTIAL [facility] MAGNESIUM LEVEL 2022-05-09 11:25:00 Gail West ospital [place] COMPREHENSIVE METABOLIC 2022-05-09 11:25:[address] [facility] PANEL [place] ESTIMATED GFR 2022-05-09 11:25:00 Gail West [facility] ospital [place] MANUAL DIFFERENTIAL 2022-05-09 11:25:00 [facility] P[facility] GLU[facility]SE 2022-05-09 02:55:00 Noman Brewer MRI FOOT WO CONTRAST LEFT 2022-05-09 02:37:17 Gail West [facility] Gajonerrian POC GLUCOSE 2022-05-08 22:46:00 Noman Brewer Ho spital COVID-19 QUALITATIVE 2022-05-08 22:35:00 [facility] RT-PCR Scooter XR FOOT 3+ VW LEFT 2022-05-08 19:44:29 [facility] Scooter BLOOD CULTURE, AEROBIC & 2022-05-08 19:34:00 [facility] ANAEROBIC Scooter CBC WITH PLATELET AND 2022-05-08 19:34:00 [facility] DIFFERENTIAL Scooter COMPREHENSIVE METABOLIC 2022-05-08 19:34:00 [facility] PANEL Scooter C-REACTIVE PROTEIN 2022-05-08 19:34:00 [facility] Scooter SEDIMENTATION RATE 2022-05-08 19:34:00 [facility] Scooter ESTIMATED GFR 2022-05-08 19:34:00 [facility] MANUAL DIFFERENTIAL 2022-05-08 19:34:00 [facility] POC GLUCOSE 2022-05-08 18:06:00 [facility] POC GLUCOSE 2022-04-19 22:41:00 July Garcíaist ospital CV TRANSESOPHAGEAL 2022-04-19 20:35:00 Sharon Mcmillan [facility] ECHOCARDIOGRAM W Angel CARDIOVERSION ECG 12-LEAD 2022-04-19 20:33:57 Jaspreet Cannon [facility] POC GLUCOSE 2022-04-19 17:28:00 Ruben Garcíaa [facility] POC GLUCOSE 2022-04-19 13:31:00 Ricky July [facility] CBC HEMOGRAM 2022-04-19 12:19:00 July García [facility] BASIC METABOLIC PANEL 2022-04-19 12:19:00 [facility] MAGNESIUM LEVEL 2022-04-19 12:19:00 Nadimpalli, July [facility] ESTIMATED GFR 2022-04-19 12:19:00 Nadimpalli, July [facility] POC GLUCOSE 2022-04-19 10:28:00 Nadimpalli, July [facility] POC GLUCOSE 2022-04-19 06:29:00 Nadimpalli, July [facility] POC GLUCOSE 2022-04-19 02:51:00 Nadimpalli, July [facility] POC GLUCOSE 2022-04-18 22:27:00 Nadimpalli, July [facility] POC GLUCOSE 2022-04-18 17:02:00 Nadimpalli, July [facility] POC GLUCOSE 2022-04-18 13:25:00 Nadimpalli, July [facility] CBC HEMOGRAM 2022-04-18 12:36:00 Nadimpalli, July [facility] BASIC METABOLIC PANEL 2022-04-18 12:36:00 [facility], [facility] ESTIMATED GFR 2022-04-18 12:36:00 Nadimpalli, July [facility] POC GLUCOSE 2022-04-18 10:01:00 [facility] POC GLUCOSE 2022-04-18 07:11:00 Nadimpalli, July [facility] URINE DRUGS OF ABUSE 2022-04-18 03:32:00 [facility] 2022-04-18 02:35:00 Nadimpalli, July [facility] POC GLUCOSE 2022-04-17 23:00:00 Nadimpalli, July [facility] NM MYOCARDIAL PERFUSION 2022-04-17 20:04:[address] [facility] REST STRESS 1 DAY CV STRESS TEST NUCLEAR 2022-04-17 20:04:00 [facility] CARDIO POC GLUCOSE 2022-04-17 17:10:00 Nadimpalli, July [facility] POC GLUCOSE 2022-04-17 13:48:00 Nadimpalljulita, July [facility] BASIC METABOLIC PANEL 2022-04-17 11:17:00 Barbaraalljulita [facility] CBC HEMOGRAM 2022-04-17 11:17:00 Nadimpalli, July [facility] MAGNESIUM LEVEL 2022-04-17 11:17:00 Nadimpalli, July [facility] ESTIMATED GFR 2022-04-17 11:17:00 Nadimpalli, July [facility] POC GLUCOSE 2022-04-17 10:13:00 Nadimpalli, July [facility] POC GLUCOSE 2022-04-17 06:09:00 Nadimpalli, July [facility] POC GLUCOSE 2022-04-17 02:46:00 Nadimpalli, July [facility] POC GLUCOSE 2022-04-16 23:09:00 Nadimpalli, July [facility] POC GLUCOSE 2022-04-16 17:53:00 Nadimpalli, July [facility] POC GLUCOSE 2022-04-16 13:40:00 Nadimpalli, July [facility] POC GLUCOSE 2022-04-16 10:34:00 Nadimpalli, July [facility] CBC HEMOGRAM 2022-04-16 09:46:00 [facility] BASIC METABOLIC PANEL 2022-04-16 09:46:00 [facility] PARTIAL THROMBOPLASTIN 2022-04-16 09:46:00 Silva [facility] TIME (PTT) ESTIMATED GFR 2022-04-16 09:46:00 [facility] POC GLUCOSE 2022-04-16 06:16:00 Nadimpalli, July [facility] POC GLUCOSE 2022-04-16 02:38:00 Nadimpalli, July [facility] POC GLUCOSE 2022-04-15 23:20:00 [facility] PARTIAL THROMBOPLASTIN 2022-04-15 20:59:00 Renetta Ascencio [facility] TIME (PTT) POC GLUCOSE 2022-04-15 17:50:00 [facility] PARTIAL THROMBOPLASTIN 2022-04-15 14:26:00 elisabet [facility] TIME (PTT) POC GLUCOSE 2022-04-15 13:50:00 [facility] CBC HEMOGRAM 2022-04-15 09:50:00 Silva [facility] HERPES SIMPLEX VIRUS BY 2022-04-15 09:50:00 Shaikh [facility] PCR HIV 1/2 ANTIGEN/ANTIBODY, 2022-04-15 09:50:00 Shaikh [facility] FOURTH GENERATION, WITH REFLEXES BASIC METABOLIC PANEL 2022-04-15 09:50:00 [facility] ESTIMATED GFR 2022-04-15 09:50:00 [facility] POC GLUCOSE 2022-04-15 09:49:00 [facility] POC GLUCOSE 2022-04-15 06:33:00 [facility] POC GLUCOSE 2022-04-15 05:30:00 [facility] PARTIAL THROMBOPLASTIN 2022-04-15 05:29:00 [facility]UCOSE 2022-04-15 02:07:00 [facility] POC GLUCOSE 2022-04-14 23:24:00 [facility] PARTIAL THROMBOPLASTIN 2022-04-14 22:35:00 UgRenetta bhandari [facility] TIME (PTT) POC GLUCOSE 2022-04-14 17:22:00 [facility] URINALYSIS SCREEN AND 2022-04-14 17:00:00 Silva [facility] MICROSCOPY, WITH REFLEX TO CULTURE TTE COMPLETE, W CONTRAST, 2022-04-14 16:06:00 Silva [facility] W DOPPLER ([id number]) PARTIAL THROMBOPLASTIN 2022-04-14 15:38:00 [facility] POC GLUCOSE 2022-04-14 13:37:00 U[facility] CBC HEMOGRAM 2022-04-14 11:19:00 [facility]IC METABOLIC PANEL 2022-04-14 11:19:00 [facility] Efren MAGNESIUM LEVEL 2022-04-14 11:19:00 Fahad Costello ESTIMATED GFR 2022-04-14 11:19:00 Fahad Costello POC GLUCOSE 2022-04-14 10:26:00 Fahad Costello POC GLUCOSE 2022-04-14 07:01:00 Fahad Costello HEPATIC FUNCTION PANEL 2022-04-14 06:28:00 Ugelisabet [facility] THYROID STIMULATING 2022-04-14 06:28:00 Ugoeke [facility] HORMONE PARTIAL THROMBOPLASTIN 2022-04-14 06:28:00 [facility] Efren POC GLUCOSE 2022-04-14 01:54:00 Fahad Costello osleonel Schwartz POC GLUCOSE 2022-04-14 00:05:00 Fahad Costello XR ABDOMEN 1 VW 2022-04-13 23:25:05 René Baird spital POC GLUCOSE 2022-04-13 22:54:00 Fahad Costello ECG 12-LEAD 2022-04-13 21:50:51 Ugelisabet [facility] BETA HYDROXYBUTYRATE 2022-04-13 21:01:00 René Baird [facility] MAGNESIUM LEVEL 2022-04-13 21:01:00 René Baird spital ESTIMATED GFR 2022-04-13 21:01:00 René Baird spital TROPONIN T 2022-04-13 21:01:00 René Baird [facility] spital PHOSPHORUS LEVEL 2022-04-13 21:01:00 René Baird [facility] BASIC METABOLIC PANEL 2022-04-13 21:01:00 BrieRené dean [facility] POC GLUCOSE 2022-04-13 20:54:00 Fahad Costello [facility] Efren ECG 12-LEAD 2022-04-13 20:37:02 [facility] TROPONIN T 2022-04-13 20:16:00 [facility] POC GLUCOSE 2022-04-13 19:03:00 Fahad Costello [facility] POC GLUCOSE 2022-04-13 14:07:00 Fahad Costello [facility] TROPONIN T 2022-04-13 13:25:00 [facility] TROPONIN T 2022-04-13 12:11:00 [facility] PARTIAL THROMBOPLASTIN 2022-04-13 12:11:00 [facility] TIME (PTT) PROTHROMBIN TIME WITH INR 2022-04-13 12:11:00 [facility] ANTI XA, UNFRACTIONATED 2022-04-13 12:11:[address] [facility] ECG 12-LEAD 2022-04-13 11:43:39 [facility] POC GLUCOSE 2022-04-13 11:41:00 [facility] POC GLUCOSE 2022-04-13 07:07:00 [facility] COVID-19 QUALITATIVE 2022-04-13 05:26:[address] [facility] [place] [place] RT-PCR [place] POC GLUCOSE 2022-04-13 05:13:00 [facility] POC GLUCOSE 2022-04-13 04:36:[address] [facility] [address] ANGIOGRAM PE CHEST 2022-04-13 01:07:30 ran [facility] [place] ECG 12-LEAD 2022-04-12 22:44:44 [facility] [place] XR CHEST 1 VW PORTABLE 2022-04-12 22:03:54 [facility] [place] ECG ED PRELIMINARY 2022-04-12 21:56:45 [facility] INTERPRETATION [place] MA CRITICAL CARE 2022-04-12 21:56:45 [facility] ILL/INJURED PATIENT INIT [place] 30-74 MIN CBC WITH PLATELET AND 2022-04-12 21:56:00 [facility] DIFFERENTIAL [place] COMPREHENSIVE METABOLIC 2022-04-12 21:56:00 [facility] PANEL [place] TROPONIN T 2022-04-12 21:56:00 [facility] [place] B NATRIURETIC PEPTIDE 2022-04-12 21:56:00 [facility] [place] ESTIMATED GFR 2022-04-12 21:56:00 [facility] [place] POC GLUCOSE 2022-03-14 21:43:00 YohannesiasNoman [facility] POC GLUCOSE 2022-03-14 17:02:00 YohannesiasJoseain [facility] POC GLUCOSE 2022-03-14 13:46:00 Jose Brewerain [facility] POC GLUCOSE 2022-03-14 03:02:00 Yohannesias Elain [facility] POC GLUCOSE 2022-03-13 23:33:00 Loquias, Elain [facility] POC GLUCOSE 2022-03-13 18:05:00 Loquias, Elain [facility] POC GLUCOSE 2022-03-13 13:57:00 Loquias Elain [facility] POC GLUCOSE 2022-03-13 02:06:00 Ana Luisaqucristino Elain [facility] POC GLUCOSE 2022-03-12 22:33:00 Ana Luisaquias, Elain [facility] POC GLUCOSE 2022-03-12 21:31:00 Ana LuisaquiasNoman [facility] LOWER EXTREMITY 2022-03-12 20:07:00 Davin Walker [facility] ANGIOGRAM,POSSIBLE ANGIOPLASTY,POSSIBLE STENT POC GLUCOSE 2022-03-12 15:51:00 Noman Brewer [facility] CBC WITH PLATELET AND 2022-03-12 10:36:00 HarinderRon [facility] DIFFERENTIAL BASIC METABOLIC PANEL 2022-03-12 10:36:00 Ron Pizano [facility] PROTHROMBIN TIME WITH INR 2022-03-12 10:36:00 [facility] ESTIMATED GFR 2022-03-12 10:36:00 Harinder [facility] POC GLUCOSE 2022-03-12 02:25:00 Harinder [facility] USPV RADAMES EXTREMITY 2022-03-11 23:31:00 [facility] BILATERAL POC GLUCOSE 2022-03-11 23:16:00 Harinder [facility] POC GLUCOSE 2022-03-11 17:42:00 Harinder [facility] POC GLUCOSE 2022-03-11 13:36:00 Harinder, [facility] CBC WITH PLATELET AND 2022-03-11 12:48:00 Ron Pizano [facility] DIFFERENTIAL COMPREHENSIVE METABOLIC 2022-03-11 12:48:00 HarinderRon el [facility] PANEL ESTIMATED GFR 2022-03-11 12:48:00 Harinder [facility] POC GLUCOSE 2022-03-11 02:16:00 Harinder [facility] METHICILLIN-RESISTANT 2022-03-11 00:23:00 Laurence Abreu [facility] STAPHYLOCOCCUS AUREUS Atul (MRSA), LEILANI POC GLUCOSE 2022-03-10 22:58:00 Harinder, [facility] VANCOMYCIN LEVEL, RANDOM 2022-03-10 20:31:00 Bridgette Hernandez [facility] POC GLUCOSE 2022-03-10 17:46:00 Harinder [facility] POC GLUCOSE 2022-03-10 13:57:00 Harinder [facility] CBC WITH PLATELET AND 2022-03-10 09:15:00 Harinder, Ron [facility] DIFFERENTIAL COMPREHENSIVE METABOLIC 2022-03-10 09:15:00 [facility] PANEL MAGNESIUM LEVEL 2022-03-10 09:15:00 [facility]FR 2022-03-10 09:15:00 Harinder [facility] POC GLUCOSE 2022-03-10 02:19[facility] 2022-03-09 22:28:00 [facility] METHICILLIN-RESISTANT 2022-03-09 18:20:00 [facility] STAPHYLOCOCCUS AUREUS (MRSA), LEILANI POC GLUCOSE 2022-03-09 17:16:00 [facility] POC GLUCOSE 2022-03-09 08:46:00 [facility] 2022-03-09 07:16[facility]00 [facility]AL[facility]ATIVE 2022-03-09 07:14:00 [facility] COMPREHENSIVE METABOLIC 2022-03-09 06:10:00 [facility] PANEL HEMOGLOBIN A1C 2022-03-09 06:10:[address] Tonie-[address] [facility] ospital Paroginog LIPID PANEL 2022-03-09 06:10:00 Tonie-Og [facility] ospital [employer] XR FOOT 3+ VW LEFT 2022-03-09 05:56:37 [facility] BETA HYDROXYBUTYRATE 2022-03-09 05:43:00 [facility] CBC WITH PLATELET AND 2022-03-09 05:35:00 [facility] DIFFERENTIAL LACTIC ACID LEVEL, SEPSIS 2022-03-09 05:35:00 Arnulfo [employer] - NOW AND REPEAT 2X EVERY 3 HOURS VENOUS BLOOD GAS 2022-03-09 05:35:00 [facility] ESTIMATED GFR 2022-03-09 05:35:00 Laxmi Arredondo [facility] POC GLUCOSE 2022-03-09 03:55:00 Carroll, Yvonne [facility] POC GLUCOSE 2021-12-14 16:15:00 René De Jesus POC GLUCOSE 2021-12-14 12:10:00 René De Jesus [facility] POC GLUCOSE 2021-12-14 01:40:00 René De Jesus POC GLUCOSE 2021-12-13 21:17:00 René De Jesus POC GLUCOSE 2021-12-13 16:05:00 René De Jesus POC GLUCOSE 2021-12-13 12:22:00 René De Jesus POC GLUCOSE 2021-12-13 01:36:00 René De Jesus POC GLUCOSE 2021-12-12 22:00:00 [facility] V[facility]IP[facility] NEED PHYS 2021-12-12 17:56:39 Trinh Christensen [facility] SKILL,DX OR RX POC GLUCOSE 2021-12-12 16:34:00 René De Jesus nora Arredondo POC GLUCOSE 2021-12-12 12:27:00 René De Jesus nora Arredondo BASIC METABOLIC PANEL 2021-12-12 10:55:00 [facility] Arnulfo CBC WITH PLATELET AND 2021-12-12 10:55:00 [facility] DIFFERENTIAL Arnulfo ESTIMATED GFR 2021-12-12 10:55:00 [facility] HERNANDEZCONOÉ-19 ANTI-SPIKE IGG 2021-12-12 10:54:00 Ramu Quevedo [facility] ANTIBODY TITER Harjinder ZZCOVID-19 SEROLOGY 2021-12-12 10:54:00 Ramu Quevedo [facility] PATIENT SURVEILLANCE Harjinder POC GLUCOSE 2021-12-12 03:38:00 René De Jesus POC GLUCOSE 2021-12-12 01:22:00 [facility] Arredondo POC GLUCOSE 2021-12-11 22:32:00 René De Jesus ospital Arnulfo POC GLUCOSE 2021-12-11 17:04:00 René De Jesus ospital Arnulfo POC GLUCOSE 2021-12-11 13:53:00 René De Jesus ospital Arnulfo POC GLUCOSE 2021-12-11 08:48:00 [facility] POC GLUCOSE 2021-12-11 07:29:00 [facility] POC GLUCOSE 2021-12-11 06:36:00 [facility] COVID-19 QUALITATIVE 2021-12-11 05:55:00 [facility] POC GLUCOSE 2021-12-11 05:34:00 [facility] WITH PLATELET AND 2021-12-11 04:02:00 Wilberto Carbajal [facility] DIFFERENTIAL COMPREHENSIVE METABOLIC 2021-12-11 04:02:00 [facility] PANEL LIPASE LEVEL 2021-12-11 04:02:00 [facility] BETA HYDROXYBUTYRATE 2021-12-11 04:02:00 Wilberto Carbajal [facility] VENOUS BLOOD GAS 2021-12-11 04:02:00 Wilberto Carbajal [facility] ESTIMATED GFR 2021-12-11 04:02:00 [facility]BDOMEN PELVIS WO 2021-12-11 02:47:59 Wilberto Carbajal [facility] CONTRAST URINE CULTURE 2021-12-11 02:24:00 [facility] URINALYSIS SCREEN AND 2021-12-11 01:10:00 Wilberto Carbajal [facility] MICROSCOPY, WITH REFLEX TO CULTURE URINE CULTURE 2021-11-08 17:34:00 Thong Cartagena spital URINALYSIS SCREEN AND 2021-11-08 16:54:00 [facility] MICROSCOPY, WITH REFLEX TO CULTURE CT RENAL STONE PROTOCOL 2021-11-08 16:35:59 Thong Cartagena [facility] CBC WITH PLATELET AND 2021-11-08 16:05:00 Mitzi [facility] DIFFERENTIAL BASIC METABOLIC PANEL 2021-11-08 16:05:00 [facility] LIPASE LEVEL 2021-11-08 16:05:00 Mitzi Th[facility]kem [facility] spital HEPATIC FUNCTION PANEL 2021-11-08 16:05:00 [facility] ESTIMATED GFR 2021-11-08 16:05:00 Mitzi Thong [facility] POC GLUCOSE 2021-11-08 15:52:00 Mitzi [facility] spital ECG ED PRELIMINARY 2021-10-11 04:49:00 [facility] INTERPRETATION ECG 12-LEAD 2021-10-11 03:14:36 [facility] CBC WITH PLATELET AND 2021-10-11 02:57:00 [facility] DIFFERENTIAL COMPREHENSIVE METABOLIC 2021-10-11 02:57:00 [facility] PANEL TROPONIN T 2021-10-11 02:57:00 [facility] B NATRIURETIC PEPTIDE 2021-10-11 02:57:00 [facility] PROTHROMBIN TIME WITH INR 2021-10-11 02:57:00 [facility] PARTIAL THROMBOPLASTIN 2021-10-11 02:57:00 [facility] TIME (PTT) ESTIMATED GFR 2021-10-11 02:57:00 [facility] XR CHEST 2 VW 2021-10-11 02:05:13 [facility] DIABETIC FOOT EXAMINATION 2021-06-29 00:00:00 Virgilio Garcia [id number]. (8F) 2 MOST RECENT DIASTOLIC 2021-06-29 00:00:00 Virgilio Garcia 2.16.8 [id number]. BLOOD PRESSURE 80-89 MM 2 HG (HTN, CKD, CAD) (DM) (3079F) MOST RECENT SYSTOLIC 2021-06-29 00:00:00 Virgilio Garcia 2.16.84 [id number]. BLOOD PRESSURE 130-139 MM 2 HG (DM),(HTN, CKD, CAD) (3075F) NEGATIVE SCREEN FOR 2021-06-29 00:00:00 Garcia, Branch [id number]. CLINICAL DEPRESSION, 2 FOLLOW-UP NOT REQUIRED (G8510) PATIENT IDENTIFIED A 2021-06-29 00:00:00 Garcia, Branch [id number]. TOBACCO USER RECEIVED 2 TOBACCO CESSATION INTERVENTION (COUNSELING AND/OR PHARMACOTHERAPY) (G9906) SCREENING FOR TOBACCO USE 2021-06-29 00:00:00 Garcia, Branch [id number]. (4004F) 2 PATIENT SCREENED FOR 2021-06-29 00:00:00 Garcia, Branch 2.16.84 [id number]. TOBACCO USE AND 2 IDENTIFIED A TOBACCO USER (G9902) XRAY FOOT 3 VIEWS - 2021-02-02 15:18:00 LopezJamin keenan [facility] ROUTINE CBC/DIFF 2021-02-02 15:12:00 Jamin Lopez alth BASIC METABOLIC PANEL 2021-02-02 15:12:00 Jamin Lopez [facility] CBC 2021-02-02 15:12:00 Jamin Lopez alth URINE CULTURE 2021-01-03 04:26:00 [facility] Richard URINALYSIS SCREEN AND 2021-01-03 04:26:00 [facility] MICROSCOPY, WITH REFLEX Richard TO CULTURE LACTIC ACID LEVEL, SEPSIS 2021-01-03 03:04:00 [facility] - NOW AND REPEAT 2X EVERY Richard 3 HOURS TROPONIN 2021-01-03 03:04:00 [facility] US DUPLEX VENOUS LOWER 2021-01-03 01:53:13 [facility] EXTREMITY RIGHT Richard ECG ED PRELIMINARY 2021-01-03 01:17:47 [facility] INTERPRETATION Richard XR TIBIA FIBULA 2 VW 2021-01-03 01:05:31 [facility] RIGHT Richard XR FOOT 3+ VW LEFT 2021-01-03 01:05:05 Juan [facility] ECG 12-LEAD 2021-01-03 00:52:[facility] BLOOD C[facility], AEROBIC & 2021-01-03 00:47:00 [facility] ANAEROBIC Richard BLOOD CULTURE, AEROBIC & 2021-01-03 00:45:00 [facility] ANAEROBIC Richard HC COMPLETE BLD COUNT 2021-01-03 00:43:00 [facility] W/AUTO DIFF Richard BASIC METABOLIC PANEL 2021-01-03 00:43:00 [facility] HEPATIC FUNCTION PANEL 2021-01-03 00:43:00 [facility] LACTIC ACID LEVEL, SEPSIS 2021-01-03 00:43:00 [facility] - NOW AND REPEAT 2X EVERY Richard 3 HOURS LIPASE LEVEL 2021-01-03 00:43:00 [facility] Richard TROPONIN 2021-01-03 00:43:00 [facility] B NATRIURETIC PEPTIDE 2021-01-03 00:43:00 [facility] Richard ESTIMATED GFR 2021-01-03 00:43:00 [facility] Amputation 2020-08-04 00:00:00 Sahil House [id number]. 2 [id number] 2020-07-04 00:00:00 DAVJO.04 [facility] [id number] 2020-07-04 00:00:00 DAVJO.04 [facility] [id number] 2020-07-04 00:00:00 DAVJO.04 [facility] [id number] 2020-07-04 00:00:00 DAVJO.04 [facility] [id number] 2020-07-04 00:00:00 DAVJO.04 [facility] [id number] 2020-07-04 00:00:00 DAVJO.04 [facility] [id number] 2020-07-04 00:00:00 DAVJO.04 [facility] [id number] 2020-07-04 00:00:00 NATHANJO.04 [facility] [id number] 2020-07-01 00:00:00 CRISTIANO [facility] [id number] 2020-07-01 00:00:00 CRISTIANO [facility] [id number] 2020-07-01 00:00:00 CRISTIANO [facility] [id number] 2020-07-01 00:00:00 CRISTIANO [facility] Annual Eye Exam - FOR House Sahil [id number] .[id number]. NON-DIABETICS ONLY 2 COLONOSCOPY IN ADULT Harsh Sahil [id number]. (77569) 2 Patient received annual House, Sahil 2.16.840 .[id number]. dental check-up 2 Teeth House, Sahil [id number] 3.4. 2 Plan of Care Planned Activity Planned Date Details Comments Source Future Scheduled 2023-01-30 Screening [facility] Test 14:16:00 malignant neoplasm of colon (procedure) [code = 468574536] Future Scheduled 2023-01-30 Screening [facility] Test 14:16:00 malignant neoplasm of colon (procedure) [code = 764160103] Future Scheduled 2023-01-30 Screening for [facility] Test 14:16:00 malignant neoplasm of colon (procedure) [code = 015052801] Future Scheduled 2023-01-30 COVID-19 VACCINE (#1) [facility] Test 14:16:00 [code = COVID-19 VACCINE (#1)] Future Scheduled 2023-01-30 DIABETES: RETINAL EYE [facility] Test 14:16:00 EXAM [code = DIABETES: RETINAL EYE EXAM] Future Scheduled 2023-01-30 DIABETIC FOOT EXAM [facility] Test 14:16:00 [code = DIABETIC FOOT EXAM] Future Scheduled 2023-01-30 URINE MICROALBUMIN [facility] Test 14:16:00 [code = URINE MICROALBUMIN] Future Scheduled 2023-01-30 Hepatitis C screening [facility] Test 14:16:00 (procedure) [code = 640916209] Future Scheduled 2023-01-30 Screening for [facility] Test 14:16:00 malignant neoplasm of colon (procedure) [code = 247291778] Future Scheduled 2023-01-30 Screening for [facility] Test 14:16:00 malignant neoplasm of colon (procedure) [code = 014522917] Future Scheduled 2023-01-30 Screening for [facility] Test 14:16:00 malignant neoplasm of lung (procedure) [code = 182872048] Future Scheduled 2023-01-30 SHINGLES VACCINES (1 [facility] Test 14:16:00 of 2) [code = SHINGLES VACCINES (1 of 2)] Future Scheduled 2023-01-30 INFLUENZA VACCINE (#1) [facility] Test 14:16:00 [code = INFLUENZA VACCINE (#1)] Future Scheduled 2023-01-30 RSV VACCINES > 60 YR [facility] Test 14:16:00 (1 - 1-dose 60+ series) [code = RSV VACCINES > 60 YR (1 - 1-dose 60+ series)] Future Scheduled 2023-01-30 Screening for [facility] Test 14:16:00 malignant neoplasm of colon (procedure) [code = 523254861] Future Scheduled 2023-01-30 Screening for [facility] Test 14:16:00 malignant neoplasm of colon (procedure) [code = [id number]] Future Scheduled 2023-01-30 Screening for [facility] Test 14:16:00 malignant neoplasm of colon (procedure) [code = [id number]] Future Scheduled 2023-01-30 COVID-19 VACCINE (#1) [facility] Test 14:16:00 [code = COVID-19 VACCINE (#1)] Future Scheduled 2023-01-30 DIABETES: RETINAL EYE [facility] Test 14:16:00 EXAM [code = DIABETES: RETINAL EYE EXAM] Future Scheduled 2023-01-30 DIABETIC FOOT EXAM [facility] Test 14:16:00 [code = DIABETIC FOOT EXAM] Future Scheduled 2023-01-30 URINE MICROALBUMIN [facility] Test 14:16:00 [code = URINE MICROALBUMIN] Future Scheduled 2023-01-30 Hepatitis C screening [facility] Test 14:16:00 (procedure) [code = [id number]] Future Scheduled 2023-01-30 Screening for [facility] Test 14:16:00 malignant neoplasm of colon (procedure) [code = [id number]] Future Scheduled 2023-01-30 Screening for [facility] Test 14:16:00 malignant neoplasm of colon (procedure) [code = [id number]] Future Scheduled 2023-01-30 Screening for [facility] Test 14:16:00 malignant neoplasm of lung (procedure) [code = 616017880] Future Scheduled 2023-01-30 SHINGLES VACCINES (1 Met [facility] Test 14:16:00 of 2) [code = SHINGLES VACCINES (1 of 2)] Future Scheduled 2023-01-30 INFLUENZA VACCINE (#1) M [facility] Test 14:16:00 [code = INFLUENZA VACCINE (#1)] Future Scheduled 2023-01-30 RSV VACCINES > 60 YR [facility] Test 14:16:00 (1 - 1-dose 60+ series) [code = RSV VACCINES > 60 YR (1 - 1-dose 60+ series)] Future Scheduled 2023-01-19 IMM Influenza Seasonal H [...] 21 yrs)] Future Scheduled 2023-01-16 Screening for [facility] Test 13:17:08 malignant neoplasm of colon (procedure) [code = 397774710] Future Scheduled 2023-01-16 Screening for [facility] Test 13:17:08 malignant neoplasm of colon (procedure) [code = 238486179] Future Scheduled 2023-01-16 Screening for [facility] Test 13:17:08 malignant neoplasm of colon (procedure) [code = 484678586] Future Scheduled 2023-01-16 COVID-19 VACCINE (#1) [facility] Test 13:17:08 [code = COVID-19 VACCINE (#1)] Future Scheduled 2023-01-16 DIABETES: RETINAL EYE [facility] Test 13:17:08 EXAM [code = DIABETES: RETINAL EYE EXAM] Future Scheduled 2023-01-16 DIABETIC FOOT EXAM [facility] Test 13:17:08 [code = DIABETIC FOOT EXAM] Future Scheduled 2023-01-16 URINE MICROALBUMIN [facility] Test 13:17:08 [code = URINE MICROALBUMIN] Future Scheduled 2023-01-16 Hepatitis C screening [facility] Test 13:17:08 (procedure) [code = 329976117] Future Scheduled 2023-01-16 Screening for [facility] Test 13:17:08 malignant neoplasm of colon (procedure) [code = 316987301] Future Scheduled 2023-01-16 Screening for [facility] Test 13:17:08 malignant neoplasm of colon (procedure) [code = 489037948] Future Scheduled 2023-01-16 Screening for [facility] Test 13:17:08 malignant neoplasm of lung (procedure) [code = 503253555] Future Scheduled 2023-01-16 SHINGLES VACCINES (1 [facility] Test 13:17:08 of 2) [code = SHINGLES VACCINES (1 of 2)] Future Scheduled 2023-01-16 INFLUENZA VACCINE (#1) [facility] Test 13:17:08 [code = INFLUENZA VACCINE (#1)] Future Scheduled 2023-01-16 Screening for [facility] Test 13:17:08 malignant neoplasm of colon (procedure) [code = 738652653] Future Scheduled 2023-01-16 Screening for [facility] Test 13:17:08 malignant neoplasm of colon (procedure) [code = 095187658] Future Scheduled 2023-01-16 Screening for [facility] Test 13:17:08 malignant neoplasm of colon (procedure) [code = 703449259] Future Scheduled 2023-01-16 COVID-19 VACCINE (#1) [facility] Test 13:17:08 [code = COVID-19 VACCINE (#1)] Future Scheduled 2023-01-16 DIABETES: RETINAL EYE [facility] Test 13:17:08 EXAM [code = DIABETES: RETINAL EYE EXAM] Future Scheduled 2023-01-16 DIABETIC FOOT EXAM [facility] Test 13:17:08 [code = DIABETIC FOOT EXAM] Future Scheduled 2023-01-16 URINE MICROALBUMIN [facility] Test 13:17:08 [code = URINE MICROALBUMIN] Future Scheduled 2023-01-16 Hepatitis C screening [facility] Test 13:17:08 (procedure) [code = 618612240] Future Scheduled 2023-01-16 Screening for [facility] Test 13:17:08 malignant neoplasm of colon (procedure) [code = 292255868] Future Scheduled 2023-01-16 Screening for [facility] Test 13:17:08 malignant neoplasm of colon (procedure) [code = 743418574] Future Scheduled 2023-01-16 Screening for [facility] Test 13:17:08 malignant neoplasm of lung (procedure) [code = 222814576] Future Scheduled 2023-01-16 SHINGLES VACCINES (1 Met [facility] Test 13:17:08 of 2) [code = SHINGLES VACCINES (1 of 2)] Future Scheduled 2023-01-16 INFLUENZA VACCINE (#1) [facility] [place] [place] [facility] Test 13:17:08 [code = INFLUENZA VACCINE (#1)] Future Scheduled 2022-12-20 IMM Influenza Seasonal [facility] Test 00:00:00 (>/= 19 yrs) [code [...] 21 yrs)] Future Scheduled 2022-11-21 Screening for [facility] Test 10:36:19 malignant neoplasm of colon (procedure) [code = 879547939] Future Scheduled 2022-11-21 Screening for [facility] Test 10:36:19 malignant neoplasm of colon (procedure) [code = 851031780] Future Scheduled 2022-11-21 Screening for [facility] Test 10:36:19 malignant neoplasm of colon (procedure) [code = 689501801] Future Scheduled 2022-11-21 COVID-19 VACCINE (#1) [facility] Test 10:36:19 [code = COVID-19 VACCINE (#1)] Future Scheduled 2022-11-21 DIABETES: RETINAL EYE [facility] Test 10:36:19 EXAM [code = DIABETES: RETINAL EYE EXAM] Future Scheduled 2022-11-21 [facility] Test 10:36:19 [code = DIABETIC FOOT EXAM] Future Scheduled 2022-11-21 [facility] Test 10:36:19 [code = URINE MICROALBUMIN] Future Scheduled 2022-11-21 [facility] 10:36:19 (procedure) [code = 955443980] Future Scheduled 2022-11-21 Screening for [facility] Test 10:36:19 malignant neoplasm of colon (procedure) [code = 623002377] Future Scheduled 2022-11-21 Screening for [facility] Test 10:36:19 malignant neoplasm of colon (procedure) [code = 233843011] Future Scheduled 2022-11-21 Screening for [facility] Test 10:36:19 malignant neoplasm of lung (procedure) [code = 963087330] Future Scheduled 2022-11-21 SHINGLES VACCINES (1 [facility] Test 10:36:19 of 2) [code = SHINGLES VACCINES (1 of 2)] Future Scheduled 2022-11-21 INFLUENZA VACCINE [facility] Test 10:36:19 [code = INFLUENZA VACCINE] Future Scheduled 2022-11-21 Screening for [facility] Test 10:36:19 malignant neoplasm of colon (procedure) [code = 926168033] Future Scheduled 2022-11-21 Screening for [facility] Test 10:36:19 malignant neoplasm of colon (procedure) [code = 655365888] Future Scheduled 2022-11-21 Screening for [facility] Test 10:36:19 malignant neoplasm of colon (procedure) [code = 997092111] Future Scheduled 2022-11-21 COVID-19 VACCINE (#1) Me [facility] Test 10:36:19 [code = COVID-19 VACCINE (#1)] Future Scheduled 2022-11-21 DIABETES: RETINAL EYE [facility] Test 10:36:19 EXAM [code = DIABETES: RETINAL EYE EXAM] Future Scheduled 2022-11-21 [facility] Test 10:36:19 [code = DIABETIC FOOT EXAM] Future Scheduled 2022-11-21 [facility] Test 10:36:19 [code = URINE MICROALBUMIN] Future Scheduled 2022-11-21 Hepatitis C screening [facility] Test 10:36:19 (procedure) [code = 329476184] Future Scheduled 2022-11-21 Screening for [facility] Test 10:36:19 malignant neoplasm of colon (procedure) [code = 081440351] Future Scheduled 2022-11-21 Screening for [facility] Test 10:36:19 malignant neoplasm of colon (procedure) [code = 095065839] Future Scheduled 2022-11-21 Screening for [facility] Test 10:36:19 malignant neoplasm of lung (procedure) [code = 143181148] Future Scheduled 2022-11-21 SHINGLES VACCINES (1 [facility] Test 10:36:19 of 2) [code = SHINGLES VACCINES (1 of 2)] Future Scheduled 2022-11-21 INFLUENZA VACCINE [facility] Test 10:36:19 [code = INFLUENZA VACCINE] Future Scheduled 2022-11-21 Screening for [facility] Test 10:36:19 malignant neoplasm of colon (procedure) [code = 301990112] Future Scheduled 2022-11-21 Screening for [facility] Test 10:36:19 malignant neoplasm of colon (procedure) [code = 027613103] Future Scheduled 2022-11-21 Screening for [facility] Test 10:36:19 malignant neoplasm of colon (procedure) [code = 233246092] Future Scheduled 2022-11-21 COVID-19 VACCINE (#1) [facility] Test 10:36:19 [code = COVID-19 VACCINE (#1)] Future Scheduled 2022-11-21 DIABETES: RETINAL EYE [facility] Test 10:36:19 EXAM [code = DIABETES: RETINAL EYE EXAM] Future Scheduled 2022-11-21 DIABETIC FOOT EXAM [facility] Test 10:36:19 [code = DIABETIC FOOT EXAM] Future Scheduled 2022-11-21 URINE MICROALBUMIN [facility] Test 10:36:19 [code = URINE MICROALBUMIN] Future Scheduled 2022-11-21 Hepatitis C screening [facility] Test 10:36:19 (procedure) [code = 755296637] Future Scheduled 2022-11-21 Screening for [facility] Test 10:36:19 malignant neoplasm of colon (procedure) [code = 733025148] Future Scheduled 2022-11-21 Screening for [facility] Test 10:36:19 malignant neoplasm of colon (procedure) [code = 336748594] Future Scheduled 2022-11-21 Screening for [facility] Test 10:36:19 malignant neoplasm of lung (procedure) [code = 790128742] Future Scheduled 2022-11-21 SHINGLES VACCINES (1 [facility] Test 10:36:19 of 2) [code = SHINGLES VACCINES (1 of 2)] Future Scheduled 2022-11-21 [facility] Test 10:36:19 [code = ZZZ INFLUENZA VACCINE] Future Scheduled 2022-10-10 Screening for [facility] Test 14:06:50 malignant neoplasm of colon (procedure) [code = 879824016] Future Scheduled 2022-10-10 Screening for [facility] Test 14:06:50 malignant neoplasm of colon (procedure) [code = 861424618] Future Scheduled 2022-10-10 Screening for [facility] Test 14:06:50 malignant neoplasm of colon (procedure) [code = 647264305] Future Scheduled 2022-10-10 COVID-19 VACCINE (#1) [facility] Test 14:06:50 [code = COVID-19 VACCINE (#1)] Future Scheduled 2022-10-10 DIABETES: RETINAL EYE [facility] Test 14:06:50 EXAM [code = DIABETES: RETINAL EYE EXAM] Future Scheduled 2022-10-10 DIABETIC FOOT EXAM [facility] Test 14:06:50 [code = DIABETIC FOOT EXAM] Future Scheduled 2022-10-10 URINE MICROALBUMIN [facility] Test 14:06:50 [code = URINE MICROALBUMIN] Future Scheduled 2022-10-10 Hepatitis C screening [facility] Test 14:06:50 (procedure) [code = 865894269] Future Scheduled 2022-10-10 Screening for [facility] Test 14:06:50 malignant neoplasm of colon (procedure) [code = 495180251] Future Scheduled 2022-10-10 Screening for [facility] Test 14:06:50 malignant neoplasm of colon (procedure) [code = 117930545] Future Scheduled 2022-10-10 Screening for [facility] Test 14:06:50 malignant neoplasm of lung (procedure) [code = 927681109] Future Scheduled 2022-10-10 SHINGLES VACCINES (1 [facility] Test 14:06:50 of 2) [code = SHINGLES VACCINES (1 of 2)] Future Scheduled 2022-10-10 INFLUENZA VACCINE [facility] Test 14:06:50 [code = INFLUENZA VACCINE] Future Scheduled 2022-09-26 Screening for [facility] Test 01:58:19 malignant neoplasm of colon (procedure) [code = 383442833] Future Scheduled 2022-09-26 Screening for [facility] Test 01:58:19 malignant neoplasm of colon (procedure) [code = 246680701] Future Scheduled 2022-09-26 Screening for [facility] Test 01:58:19 malignant neoplasm of colon (procedure) [code = 710073623] Future Scheduled 2022-09-26 COVID-19 VACCINE (#1) [facility] Test 01:58:19 [code = COVID-19 VACCINE (#1)] Future Scheduled 2022-09-26 DIABETES: RETINAL EYE [facility] Test 01:58:19 EXAM [code = DIABETES: RETINAL EYE EXAM] Future Scheduled 2022-09-26 DIABETIC FOOT [facility]AM [facility] Test 01:58:19 [code = DIABETIC FOOT EXAM] Future Scheduled 2022-09-26 URINE [facility]ALBUMIN [facility] Test 01:58:19 [code = URINE MICROALBUMIN] Future Scheduled 2022-09-26 Hep[facility] C screening [facility] Test 01:58:19 (procedure) [code = 487458390] Future Scheduled 2022-09-26 Screening for [facility] Test 01:58:19 malignant neoplasm of colon (procedure) [code = 509281245] Future Scheduled 2022-09-26 Screening for [facility] Test 01:58:19 malignant neoplasm of colon (procedure) [code = 935405844] Future Scheduled 2022-09-26 Screening for [facility] Test 01:58:19 malignant neoplasm of lung (procedure) [code = 369639224] Future Scheduled 2022-09-26 SHINGLES VACCINES (1 [facility] Test 01:58:19 of 2) [code = SHINGLES VACCINES (1 of 2)] Future Scheduled 2022-09-26 INFLUENZA VACCINE [facility] Test 01:58:19 [code = INFLUENZA VACCINE] Future Scheduled 2022-09-19 COVID-19 VACCINE (#1) [facility] Test 11:07:21 [code = COVID-19 VACCINE (#1)] Future Scheduled 2022-09-19 DIABETES: RETINAL EYE [facility] Test 11:07:21 EXAM [code = DIABETES: RETINAL EYE EXAM] Future Scheduled 2022-09-19 DIABETIC FOOT EXAM [facility] Test 11:07:21 [code = DIABETIC FOOT EXAM] Future Scheduled 2022-09-19 URINE [facility]ALBUMIN [facility] Test 11:07:21 [code = URINE MICROALBUMIN] Future Scheduled 2022-09-19 [facility] C screening [facility] Test 11:07:21 (procedure) [code = 905376171] Future Scheduled 2022-09-19 Screening for [facility] Test 11:07:21 malignant neoplasm of colon (procedure) [code = 526128498] Future Scheduled 2022-09-19 Screening for [facility] Test 11:07:21 malignant neoplasm of lung (procedure) [code = 846746203] Future Scheduled 2022-09-19 SHINGLES VACCINES (1 Met [facility] Test 11:07:21 of 2) [code = SHINGLES VACCINES (1 of 2)] Future Scheduled 2022-09-19 INFLUENZA VACCINE [facility] Test 11:07:21 [code = INFLUENZA VACCINE] Future Scheduled 2022-08-19 COVID-19 VACCINE (#1) [facility] Test 10:24:38 [code = COVID-19 VACCINE (#1)] Future Scheduled 2022-08-19 DIABETES: RETINAL EYE [facility] Test 10:24:38 EXAM [code = DIABETES: RETINAL EYE EXAM] Future Scheduled 2022-08-19 [facility] Test 10:24:38 [code = DIABETIC FOOT EXAM] Future Scheduled 2022-08-19 [facility] Test 10:24:38 [code = URINE MICROALBUMIN] Future Scheduled 2022-08-19 Hepatitis C screening [facility] Test 10:24:38 (procedure) [code = 141584421] Future Scheduled 2022-08-19 COLONOSCOPY SCREENING [facility] Test 10:24:38 [code = COLONOSCOPY SCREENING] Future Scheduled 2022-08-19 Screening for [facility] Test 10:24:38 malignant neoplasm of lung (procedure) [code = 776069761] Future Scheduled 2022-08-19 SHINGLES VACCINES (1 Met [facility] Test 10:24:38 of 2) [code = SHINGLES VACCINES (1 of 2)] Future Scheduled 2022-08-19 INFLUENZA VACCINE [facility] Test 10:24:38 [code = INFLUENZA VACCINE] Future Scheduled 2022-08-19 COVID-19 VACCINE (#1) [facility] 10:24:38 [code = COVID-19 VACCINE (#1)] Future Scheduled 2022-08-19 DIABETES: RETINAL EYE [facility] Test 10:24:38 EXAM [code = DIABETES: RETINAL EYE EXAM] Future Scheduled 2022-08-19 DIABETIC FOOT EXAM [facility] Test 10:24:38 [code = DIABETIC FOOT EXAM] Future Scheduled 2022-08-19 URINE [facility]ALBUMIN [facility] Test 10:24:38 [code = URINE MICROALBUMIN] Future Scheduled 2022-08-19 [facility] C screening [facility] Test 10:24:38 (procedure) [code = 730127681] Future Sched[facility] 2022-08-19 [facility] 10:24:38 [code = COLONOSCOPY SCREENING] Future Scheduled 2022-08-19 Scre[facility] for [facility] Test 10:24:38 malignant neoplasm of lung (procedure) [code = 125491901] Future Scheduled 2022-08-19 [facility]:24:38 of 2) [code = SHINGLES VACCINES (1 of 2)] Future Scheduled 2022-08-19 INFLUENZA VACCINE [facility] Test 10:24:38 [code = INFLUENZA VACCINE] Future Scheduled 2022-08-19 [facility] 10:24:38 [code = COVID-19 VACCINE (#1)] Future Scheduled 2022-08-19 DIABETES: RETINAL EYE Me [facility] Test 10:24:38 EXAM [code = DIABETES: RETINAL EYE EXAM] Future Scheduled 2022-08-19 [facility] Test 10:24:38 [code = DIABETIC FOOT EXAM] Future Scheduled 2022-08-19 URINE [facility]ALBUMIN [facility] Test 10:24:38 [code = URINE MICROALBUMIN] Future Scheduled 2022-08-19 [facility] Test 10:24:38 (procedure) [code = 013569317] Future Scheduled 2022-08-19 [facility] 10:24:38 [code = COLONOSCOPY SCREENING] Future Scheduled 2022-08-19 Scre[facility] for [facility] Test 10:24:38 malignant neoplasm of lung (procedure) [code = 696899959] Future Scheduled 2022-08-19 [facility]ACCINES ([facility] 10:24:38 of 2) [code = SHINGLES VACCINES (1 of 2)] Future Scheduled 2022-08-19 INFLUENZA VACCINE [facility] Test 10:24:38 [code = INFLUENZA VACCINE] Future Scheduled 2022-08-19 COVID-19 VACCINE (#1) [facility] 10:24:38 [code = COVID-19 VACCINE (#1)] Future Scheduled 2022-08-19 DIABETES: RETINAL EYE [facility] Test 10:24:38 EXAM [code = DIABETES: RETINAL EYE EXAM] Future Scheduled 2022-08-19 DIABETIC FOOT EXAM [facility] Test 10:24:38 [code = DIABETIC FOOT EXAM] Future Scheduled 2022-08-19 URINE MICROALBUMIN [facility] Test 10:24:38 [code = URINE MICROALBUMIN] Future Scheduled 2022-08-19 Hepatitis C screening [facility] Test 10:24:38 (procedure) [code = 290652897] Future Scheduled 2022-08-19 COLONOSCOPY SCREENING [facility] Test 10:24:38 [code = COLONOSCOPY SCREENING] Future Scheduled 2022-08-19 Scre[facility] for [facility] Test 10:24:38 malignant neoplasm of lung (procedure) [code = 822597179] Future Scheduled 2022-08-19 SHINGLES VACCINES (1 Met [facility] Test 10:24:38 of 2) [code = SHINGLES VACCINES (1 of 2)] Future Scheduled 2022-08-19 INFLUENZA VACCINE [facility] Test 10:24:38 [code = INFLUENZA VACCINE] Future Scheduled 2022-01-19 IMM Influ[address] Seasonal [facility] Test 00:00:00 (>/= 19 yrs) [code = IMM Influenza Seasonal (>/= 19 yrs)] Future Scheduled 2022-01-19 IMM Influenza Seasonal [facility] Test 00:00:00 (>/= 19 yrs) [code = IMM Influenza Seasonal (>/= 19 yrs)] Future Scheduled 2021-12-17 HEPATITIS B VACCINES [facility] Test 10:00:08 (1 of 3 - 3-dose series) [code = HEPATITIS B VACCINES (1 of 3 - 3-dose series)] Future Scheduled 2021-12-17 COVID-19 VACCINE (#1) [facility] Test 10:00:08 [code = COVID-19 VACCINE (#1)] Future Scheduled 2021-12-17 Pneumococcal Vaccine: [facility] Test 10:00:08 Pediatrics (0 to 5 Years) and At-Risk Patients (6 to 64 Years) (1 - PCV) [code = Pneumococcal Vaccine: Pediatrics (0 to 5 Years) and At-Risk Patients (6 to 64 Years) (1 - PCV)] Future Scheduled 2021-12-17 Hepatitis C screening [facility] Test 10:00:08 (procedure) [code = 554535936] Future Scheduled 2021-12-17 COLONOSCOPY SCREENING [facility] Test 10:00:08 [code = COLONOSCOPY SCREENING] Future Scheduled 2021-12-17 SHINGLES VACCINES (1 [facility] Test 10:00:08 of 2) [code = SHINGLES VACCINES (1 of 2)] Future Scheduled 2021-12-17 INFLUENZA VACCINE Method [facility] Test 10:00:08 [code = INFLUENZA VACCINE] Future Scheduled 2021-12-17 HEPATITIS B VACCINES [facility] Test 10:00:08 (1 of 3 - 3-dose series) [code = HEPATITIS B VACCINES (1 of 3 - 3-dose series)] Future Scheduled 2021-12-17 COVID-19 VACCINE (#1) [facility] Test 10:00:08 [code = COVID-19 VACCINE (#1)] Future Scheduled 2021-12-17 Pneumococcal Vaccine: [facility] Test 10:00:08 Pediatrics (0 to 5 Years) and At-Risk Patients (6 to 64 Years) (1 - PCV) [code = Pneumococcal Vaccine: Pediatrics (0 to 5 Years) and At-Risk Patients (6 to 64 Years) (1 - PCV)] Future Scheduled 2021-12-17 Hepatitis C screening [facility] Test 10:00:08 (procedure) [code = 321559650] Future Scheduled 2021-12-17 COLONOSCOPY SCREENING [facility] Test 10:00:08 [code = COLONOSCOPY SCREENING] Future Scheduled 2021-12-17 SHINGLES VACCINES (1 [facility] Test 10:00:08 of 2) [code = SHINGLES VACCINES (1 of 2)] Future Scheduled 2021-12-17 INFLUENZA VACCINE Method [facility] Test 10:00:08 [code = INFLUENZA VACCINE] Diagnostic Test 2021-06-29 HEMOGLOBIN GLYCLATED Pending 14:06:03 (HGB A1C) ([id number]) [code = 84286] Diagnostic Test 2021-06-29 CBC & PLATELETS (AUTO) Pending 14:05:14 (10957) [code = 52446] Diagnostic Test 2021-06-29 MICROALBUMIN/CREAT. Pending 13:35:45 RATIO WITH CREATININE (ALONDRA URINE) (65414) [code = 69453] Diagnostic Test 2021-06-29 LIPID PANEL (02675) Pending 13:35:39 [code = 25130] Diagnostic Test 2021-06-29 COMPREHENSIVE Pending 13:35:39 METABOLIC PANEL (80061) [code = 98509] Future Scheduled 2017 [facility] Test 00:00:00 malignant neoplasm of colon (procedure) [code = 315988857] Future Scheduled 2017 [facility] Test 00:00:00 malignant neoplasm of colon (procedure) [code = 381642758] Future Scheduled 2017 [facility] Test 00:00:00 malignant neoplasm of colon (procedure) [code = 835696901] Future Scheduled 2017 [facility] Test 00:00:00 malignant neoplasm of colon (procedure) [code = 669875628] Future Scheduled 2017 [facility] Test 00:00:00 malignant neoplasm of colon (procedure) [code = 957417879] Future Scheduled 2017 [facility] Test 00:00:00 malignant neoplasm of colon (procedure) [code = 089996284] Future Scheduled 2017 [facility] Test 00:00:00 malignant neoplasm of colon (procedure) [code = 506753802] Future Scheduled 2017 [facility] Test 00:00:00 malignant neoplasm of colon (procedure) [code = 628475745] Future Scheduled 2017 [facility] Test 00:00:00 malignant neoplasm of colon (procedure) [code = 120067565] Future Scheduled 2017 [facility] Test 00:00:00 malignant neoplasm of colon (procedure) [code = 388829676] Future Scheduled 2017 [facility] Test 00:00:00 malignant neoplasm of colon (procedure) [code = 832624612] Future Scheduled 2017 [facility] Test 00:00:00 malignant neoplasm of colon (procedure) [code = 255070471] Future Scheduled 2017 [facility] Test 00:00:00 malignant neoplasm of colon (procedure) [code = 601709512] Future Scheduled 2017 [facility] Test 00:00:00 malignant neoplasm of colon (procedure) [code = 020708207] Future Scheduled 2017 [facility] Test 00:00:00 malignant neoplasm of colon (procedure) [code = 936851966] Future Scheduled 1985 Diabetic foot [facility] Test 00:00:00 examination (regime/therapy) [code = 286263951] Future Scheduled 1985 U[facility] Test 00:00:00 protein (procedure) [code = 272808205] Future Scheduled 1985 DM [facility] Ex[facility] 00:00:00 (Yearly) [code = DM Retinal Exam (Yearly)] Future Scheduled 1985 Di[facility] [facility] 00:00:00 examination (regime/therapy) [code = 899015765] Future Scheduled 1985 Urine screening for [facility] 00:00:00 protein (procedure) [code = 431839334] Future Scheduled 1985 DM Retinal Exam [facility] 00:00:00 (Yearly) [code = DM Retinal Exam (Yearly)] Future Scheduled 1985 Diabetic foot [facility] 00:00:00 examination (regime/therapy) [code = 424870988] Future Scheduled 1985 Urine screening for [facility] 00:00:00 protein (procedure) [code = 498545873] Future Scheduled 1985 DM [facility]inal Exam [facility] 00:00:00 (Yearly) [code = DM Retinal Exam (Yearly)] Future Scheduled 1985 Diabetic foot [facility] 00:00:00 examination (regime/therapy) [code = 817796940] Future Scheduled 1985 Urine screening for [facility] 00:00:00 protein (procedure) [code = 037405549] Future Scheduled 1985 DM [facility] Ex[facility] 00:00:00 (Yearly) [code = DM Retinal Exam (Yearly)] Future Scheduled 1985 Diabetic foot [facility] 00:00:00 examination (regime/therapy) [code = 345824089] Future Scheduled 1985 Urine screening for [facility] 00:00:00 protein (procedure) [code = 398284000] Future Scheduled 1985 DM [facility] Ex[facility] 00:00:00 (Yearly) [code = DM Retinal Exam (Yearly)] Future Scheduled 1985 Diabetic foot [facility] 00:00:00 examination (regime/therapy) [code = 411792336] Future Scheduled 1985 Urine screening for [facility] 00:00:00 protein (procedure) [code = 642777490] Future Scheduled 1985 DM [facility]inal Exam [facility] 00:00:00 (Yearly) [code = DM Retinal Exam (Yearly)] Future Scheduled 1985 Diabetic foot [facility] 00:00:00 examination (regime/therapy) [code = 296512504] Future Scheduled 1985 Urine screening for [facility] 00:00:00 protein (procedure) [code = 574013054] Future Scheduled 1985 DM [facility]inal Ex[facility] 00:00:00 (Yearly) [code = DM Retinal Exam (Yearly)] Future Scheduled 1985 DM Foot Exam (Yearly) [facility] 00:00:00 [code = DM Foot Exam (Yearly)] Future Scheduled 1985 Urine screening for [facility] 00:00:00 protein (procedure) [code = 931379031] Future Scheduled 1985 DM [facility]inal Ex[facility] 00:00:00 (Yearly) [code = DM Retinal Exam (Yearly)] Future Scheduled 1985 DM Foot Exam (Yearly) [facility] 00:00:00 [code = DM Foot Exam (Yearly)] Future Scheduled 1985 Urine screening for [facility] 00:00:00 protein (procedure) [code = 910507740] Future Scheduled 1985 DM [facility]inal Ex[facility] 00:00:00 (Yearly) [code = DM Retinal Exam (Yearly)] Future Scheduled 1985 Diabetic foot [facility] 00:00:00 examination (regime/therapy) [code = 903365787] Future Scheduled 1985 Urine screening for [facility] 00:00:00 protein (procedure) [code = 384568439] Future Scheduled 1985 DM [facility] Ex[facility] 00:00:00 (Yearly) [code = DM Retinal Exam (Yearly)] Future Scheduled 1985 Diabetic foot [facility] 00:00:00 examination (regime/therapy) [code = 803227780] Future Scheduled 1985 Urine screening for [facility] 00:00:00 protein (procedure) [code = 604855468] Future Scheduled 1985 DM [facility]inal Ex[facility] 00:00:00 (Yearly) [code = DM Retinal Exam (Yearly)] Future Scheduled 1985 Diabetic foot [facility] 00:00:00 examination (regime/therapy) [code = 434498057] Future Scheduled 1985 Urine screening for [facility] 00:00:00 protein (procedure) [code = 381639126] Future Scheduled 1985 DM [facility]inal Ex[facility] 00:00:00 (Yearly) [code = DM Retinal Exam (Yearly)] Future Scheduled 1985 Diabetic foot [facility] 00:00:00 examination (regime/therapy) [code = 371312848] Future Scheduled 1985 Urine screening for [facility] 00:00:00 protein (procedure) [code = 707893239] Future Scheduled 1985 DM [facility]inal Ex[facility] 00:00:00 (Yearly) [code = DM Retinal Exam (Yearly)] Future Scheduled 1985 Diabetic foot [facility] 00:00:00 examination (regime/therapy) [code = 774302834] Future Scheduled 1985 Urine screening for [facility] 00:00:00 protein (procedure) [code = 438069832] Future Scheduled 1985 DM [facility]inal Ex[facility] 00:00:00 (Yearly) [code = DM Retinal Exam (Yearly)] Future Scheduled 1985 Diabetic foot [facility] 00:00:00 examination (regime/therapy) [code = 696303609] Future Scheduled 1985 Urine screening for [facility] 00:00:00 protein (procedure) [code = 289520484] Future Scheduled 1985 DM Retinal Exam [facility] Test 00:00:00 measurement (procedure) [code = 02434999] Future Scheduled 1967 Hemoglobin A1c [facility] 00:00:00 measurement (procedure) [code = 07874524] Future Scheduled 1967 Hemoglobin A1c [facility] 00:00:00 measurement (procedure) [code = 40597724] Future Scheduled 1967 Hemoglobin A1c [facility] 00:00:00 measurement (procedure) [code = 43583583] Future Scheduled 1967 Hemoglobin A1c [facility] 00:00:00 measurement (procedure) [code = 69841623] Future Scheduled 1967 Hemoglobin A1c [facility] 00:00:00 measurement (procedure) [code = 83363710] Future Scheduled 1967 Hemoglobin A1c [facility] 00:00:00 measurement (procedure) [code = 76607509] Future Scheduled 1967 Hemoglobin A1c [facility] 00:00:00 measurement (procedure) [code = 62320311] Future Scheduled 1967 Fluoride Varnish [code [facility] 00:00:00 = Fluoride Varnish] Future Scheduled 1967 Hemoglobin A1c [facility] 00:00:00 measurement (procedure) [code = 37063831] Future Scheduled 1967 Fluoride Varnish [code [facility] 00:00:00 = Fluoride Varnish] Future Scheduled 1967 Hemoglobin A1c [facility] 00:00:00 measurement (procedure) [code = 03172577] Future Scheduled 1967 Hemoglobin A1c [facility] 00:00:00 measurement (procedure) [code = 50289869] Future Scheduled 1967 Hemoglobin A1c [facility] 00:00:00 measurement (procedure) [code = 71025425] Future Scheduled 1967 Hemoglobin A1c [facility] 00:00:00 measurement (procedure) [code = 50350257] Future Scheduled 1967 Hemoglobin A1c [facility] 00:00:00 measurement (procedure) [code = 02092328] Future Scheduled 1967 Hemoglobin A1c [facility] 00:00:00 measurement (procedure) [code = 40937052] Encounters Start End Encounter Admission Attending Care Care Encounter Source Date/Time Date/Time Type Type Clinicians Facility Department ID 2023-02-12 Outpatient [id number]- [id number] 7B2F-4 [facility] 22:01:43 44BE-4579 BE-4579-A60 4BE-4579- A l -E924-547 2-385U1TM48 602-497A6C Guille [id number] 2023-02-09 Outpatient [id number]- 21354QZM-70 2687 6FCD-4 [facility] 20:15:19 4835-4F5F 35-5P0S-E8O 835-4F5F- A l -B4L1-215 1-409MVN189 1B0-910MDR Guille CFJ679S3T F2D 672F2D 2023-01-29 Outpatient [id number]- 7PI0146H-2O 7DB8 866E-7 [facility] 20:52:41 1X45-3293 23-4935-926 W68-5803- 9 l -9266-D99 6-S96454024 266-K29294 Guille [id number] 076 981794 8856-10-07 Outpatient 9AC5DAI5- 7YP7QZZ4-5Q 2CD8 DFC8-8 [facility] 14:44:43 1AK3-574G F6-482A-BC2 FF6-482A- B l -LQ11-Q84 8-P9978L643 X10-F4692K Guille 92V111J39 C24 728C24 2022-12-13 Outpatient [id number]- Z38585WQ-CI D848 53FB-E [facility] 14:44:37 LJ4C-1377 8A-4711-9E7 O5A-0391- 9 l -2W0Q-PYW B-YNE96F242 V4S-DFS14G Guille 63M78685K 53C 31521F 2022-12-10 Outpatient [id number]- 0I4810QF-84 4A22 92EF-6 [facility] 22:20:45 88Y0-121I E6-428F-910 4R9-245H- 9 l -9100-AED 0-MJX738689 100-PJA834 Guille 363027D77 D82 616D82 2022-12-05 Outpatient [id number]- G4F754VL-18 B9E6 20FB-3 [facility] 00:38:36 29Y8-906M B8-416D-815 7N6-426F- 8 l -8153-A18 3-M53D17K9X 153-A18A09 Guille N83C3LV49 C76 B5BC76 2022-10-14 Outpatient [id number]- V8280T79-3H A598 2A76-1 [facility] 00:41:12 4HN5-7Z1G B3-1C1M-70Z BB3-4D6D- 9 l -32P8-358 5-760BA8847 3B1-598HN9 Guille CU1513NKY CBB 615CBB 2022-09-26 Outpatient 9KYX0X50- 6JMI7N73-OD 8BAA 2C28-B [facility] 22:55:52 BDD8-45A9 D8-02L5-C08 DD8-45A9- A l -T38W-215 C-0902Z3Q4R 65C-0738A6 Guille 4T6T8B1FV 9CA A9E9CA 2022-09-23 Outpatient [id number]- 0K0W8713-89 9A1A 7215-2 [facility] 15:40:06 55O6-8723 D4-4114-817 2R1-3469- 8 l -8170-0E7 0-0V80891U7 170-5N8496 Guille 4214H00X4 1C5 7F51C5 2022-09-18 Outpatient T86YAY74- R48BQT10-03 B36D ED90-5 [facility] 10:27:41 541D-469D 1D-469D-BD0 41D-469D- B l -AK25-31V 8-08B0DL720 G92-53J4RG Guille 3NW45788D 07A 34328C 2022-09-05 [facility] 35032GE0- 99960UU6-10 2321 5DA0-4 Memoria 19:47:40 4550-4F68 50-6G12-9AC 550-4F68- 9 l -5TS1-H35 8-O946O2VF8 EF8-C365D8 Guille 5D4VK6E61 C31 EA8C31 2022-08-22 Outpatient 271OD8BY- 216SE3PA-YD 040A D3FD-E [facility] 13:17:42 EEDC-4D67 DC-8Y47-O7V EDC-4D67- B l -U0P3-QQ2 8-HX3246456 7A1-XK9405 Giulle [id number] 901 614008 8111-05-01 [facility] 76323J94- 71925V72-I9 2664 7F96-A Memoria 10:26:06 Q6T8-7C66 D0-6G85-GZ5 3E6-8X66- B l -UM7L-V76 D-C20C684V1 J2T-K08L83 Guille U053U3857 284 4W3677 2022-07-01 [facility] 06TO29K0- 29LZ72M1-5S 52CB 02A8-1 Memoria 18:22:57 6Q92-6A6Z 86-4V2J-N8J D34-3Q3J- A l -C3OF-637 F-652Z201IM 7DF-972C65 Guille T873GG110 841 3VC202 2022-06-25 Outpatient T197HM2X- M451IT3H-41 C555 AD3A-6 Mem[facility] 13:13:28 6801-408F 01-408F-9CD 801-408F- 9 l -0XE4-8C1 5-1J01X4241 CD5-9B11D0 Guille 8D9412SFT CAF 333CAF 2022-06-21 Outpatient 843866HR- 954835RU-68 2314 01CA-8 [facility] 16:24:21 8273-427F 73-427F-927 273-427F- 9 l -9279-910 9-3133073NW 279-935630 Guille 7524NY18C 00D 8DD00D 2022-05-10 Outpatient 8M4MH701- 9U0KX093-R0 2E9D D710-A [facility] 06:40:42 M55E-45L0 5F-61S9-69U 65F-48A2- 9 l -78R4-9U8 9-4A219BNIQ 6J2-1L486C Guille 84GQPD978 329 IGY344 2022-05-08 Outpatient PZC6KBD4- LMP9YKQ7-49 BEF6 CBA3-5 [facility] 15:37:53 503B-4880 3B-4880-9B6 03B-4880- 9 l -0S1Z-3ZY D-8FKZ74708 D1V-6DAP98 Guille L23571I86 C18 509C18 2022-04-19 Outpatient 0VNQ3J2H- 3JKW5X3W-21 1BBB 5C0D-8 Memoria 13:59:31 16B1-8072 F1-4973-998 4R7-9062- 9 l -998B-F76 B-A64567793 98B-G27548 Guille [id number] 327 264154 7617-12-28 Outpatient 68FKQ33V- 13HGL06W-JJ 79BE F91E-D Mem[facility] 13:31:43 DAD3-4873 D3-4873-877 AD3-4873- 8 l -8771-2E6 1-2A1O456Z7 771-2E6E91 Guille N690J2625 342 9R3451 2022-04-13 Outpatient 4978Y0X0- 2796U4D4-71 4505 A0B3-1 [facility]oria 15:36:01 15FB-4C6B FB-9L2A-F98 5FB-4C6B- A l -A57M-B07 B-I55Y0F138 59B-D42D0C Guille S4T944O7W A6F 833A6F 2022-04-12 Outpatient 51C7XID0- 61I6YGR8-3H 06B9 BCB5-0 Memoria 15:30:39 4N65-6JC4 07-1RM6-175 B24-2PO5- 9 l -9202-AD6 2-ID20Y85AG 202-AD61D6 Guille 9V20TZO44 A84 7EAA84 2022-03-11 Outpatient 822N1LD0- 086A3XX5-99 938D 5EE5-8 Memoria 19:30:21 857A-4A82 7A-4F12-R0A 57A-4A82- B l -F6Z9-5D9 5-1L01652RR 1H3-4L5689 Guille 3493PO985 155 8YZ337 2022-03-08 Outpatient [id number]- 2D008598-70 3A45 0898-9 Memoria 21:44:29 9339-4C22 39-2P32-D16 339-4C22- A l -L97C-65X E-97A06BNPX 45E-85D07A Guille 24CPVV483 545 OIU617 2022-01-04 Outpatient 6JPD7SBW- 8RXY1CUA-9P 9DDA 6CAA-4 Memoria 07:00:32 3L46-8410 77-4012-BA3 R92-4093- B l -KS82-N91 9-M08FGQMJ9 B60-A80REW Gu[place] CJLLK0DR5 CD2 AD3CD2 2021-12-31 Outpatient 375280P2- 141706Y0-X6 3447 38E1-B [facility]oria 12:10:15 C2S5-703E E1-485D-91D 5K4-414M- 9 l -88K6-E18 2-R93388753 2B4-S57309 Guille 817421SU1 AC5 327AC5 2021-10-07 RICHARDSON Dwyer [facility] [id number] [facility] 06:58:00 Jerry [id number] [facility] 2021-07-14 Outpatient [facility] [id number] Lone 04:59:20 [id number] [facility] 2021-06-28 Outpatient [facility] [id number] Lone 15:37:52 [id number] [facility] 2021-06-15 Outpatient [facility] [id number] Lone 11:20:44 [id number] [facility] 2021-03-30 Outpatient 4154XV00- 3501QC71-8Z 9110 FB25-7 Memoria 23:09:22 9R96-296C 85-469A-9A5 O30-768Z- 9 l -2V9L-P38 B-D9443J917 P1V-A3257S Guille 94R813D30 B38 918B38 2020-06-30 Inpatient HCAKW HCAKW [id number] [facility] 09:04:59 17 [facility] 2020-02-27 Inpatient HCACR AMA [id number] [facility] 13:37:00 01 [facility] 2019-10-08 Inpatient HCABM NCER [id number] [facility] 12:23:00 18 [facility] 2023-02-18 2023-02-18 Outpatient Karol ZEPEDA [facility] [id number] Univers 13:00:00 13:00:00 SENDIL [facility] 2023-02-14 2023-02-14 Outpatient GERMAN MCDOWELL [facility] [id number] Univers 12:00:00 12:00:00 GERMAN MCGEE [facility] 2023-01-30 2023-01-30 Outpatient Karol ZEPEDA [facility] [id number] Univers 14:30:00 14:30:00 SENDIL [facility] 2023-01-07 2023-01-07 Telephone Dinh [facility] [id number] [id number] Univers 00:00:00 00:00:00 Alexandra CHAMBERS 350.1.13.10 i Dre 4.2.7.2.686 Katie perez PROFESSIO [phone] [address] 2022-12-30 2022-12-30 [facility] [id number] Univers 15:00:00 15:00:00 BLANCA ity [facility] 2022-12-24 2022-12-24 Orders Doctor LIBERTY 1.2.840.114 [id number] Univers 00:00:00 00:00:00 Only Unassigned, BRANDEE 350.1.13.10 ity of [place] [facility] 4.2.7.2.686 Suhas as [phone] [facility] [address] 2022-12-17 2022-12-17 Outpatient [facility] [id number] Univers 08:30:00 08:30:00 JENI espana [facility] 2022-12-16 2022-12-16 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, Adc Lab [facility] 1.2.840.114 [id number] Univers 13:45:00 14:27:13 Visit Alexandra Finnegan 350.1.13.10 ity [facility] [place] [id number] Nh dical NAL 353 [facility] 2022-12-16 2022-12-16 Outpatient [facility] [id number] Univers 13:00:00 13:41:28 ALEXANDRA malorie [facility] 2022-12-16 2022-12-16 [facility] 1.2.840.114 [id number] Univers 13:00:00 13:41:28 Visit Alexandra CHAMBERS 350.1.13.10 i ty [facility] [place] [id number] Nh dical NAL 044 [facility] 2022-12-13 2022-12-13 Outpatient [facility] [id number] Univers 11:30:00 11:30:00 ALEXANDRA malorie [facility] 2022-12-11 2022-12-11 [facility]phone [facility] 1.2.840.114 [id number] Univers 00:00:00 00:00:00 Blanca CAPONE 350.1.13.10 ity [facility] [place] [phone] [facility] [place] [address] [address] [facility] 2022-12-10 2022-12-10 Outpatient R RENEE [facility] [id number] Univers 16:00:00 16:00:00 LEIGHTON JEFFERSON it y of [facility] 2022-12-05 2022-12-05 Boo Finnegan [facility] 1.2.840.114 [id number] Univers 00:00:00 00:00:00 Alexandra [facility] 350.1.13.10 it y of [place] 4.2.7.2.686 Suhas as ИРИНА?BLEA [phone] [address] 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 BUILDING 2022-12-03 2022-12-03 Outpatient R DAJA [facility] [id number] Univers 08:00:00 08:00:00 JENI ity of [facility] 2022-11-14 2022-11-14 Telephone Nimo [facility] 1.2.840.114 [id number] Univers 00:00:00 00:00:00 Ramón CHAMBERS 350.1.13.10 ity [place] [id number] [place] [address] [address] [facility] 2022-11-08 2022-11-08 Orders Doctor LIBERTY 1.2.840.114 [id number] Univers 00:00:00 00:00:00 Only Unassigned, BRANDEE 350.1.13.10 ity of [place] [facility] 4.2.7.2.686 Suhas as [phone] [place] [address] [address] 2022-11-06 2022-11-06 Office Nimo, [facility] 1.2.840.114 [id number] Univers 14:30:00 14:40:59 Visit Ramón CHAMBERS 350.1.13.10 it[place] [id number] [address] 2022-11-06 2022-11-06 Office Nimo [facility] 1.2.840.114 [id number] Univers 13:30:00 14:39:47 Visit Ramón CHAMBERS 350.1.13.10 ity of [facility] 4[place] [id number] [facility] 044 [facility] 2022-11-06 2022-11-06 Outpatient R RAMÓN KRAFT [facility] [id number] Univers 13:30:00 14:39:47 RAMÓN KRAFT ity [facility] 2022-10-21 2022-10-21 Outpatient R MORENITA [facility] [id number] Univers 13:30:00 13:30:00 PATRICK [facility] 2022-10-16 2022-10-16 Refdeyanira Finnegan [facility] 1.2.840.114 [id number] Univers 00:00:00 00:00:00 Alexandra CHAMBERS 350.1.13.10 i ty [place] [phone] [facility] 044 [facility] 2022-10-11 2022-10-11 Outpatient R LEIA [facility] [id number] Univers 08:00:00 08:00:00 RUIQING [facility] 2022-10-02 2022-10-02 Telephone Dinh [facility] 1.2.978.730 [id number] Univers 00:00:00 00:00:00 Alexandra CHAMBERS 350.1.13.10 i ty [place] [id number] [facility] 231 [facility] 2022-09-25 2022-09-25 Orders Doctor KOENIG 1.2.840.114 [id number] Univers 00:00:00 00:00:00 Only Unassigned, BRANDEE 350.1.13.10 ity of [place] [facility] 4.2.7.2.686 Suhas as [phone] [address] 2022-09-20 2022-09-20 Outpatient R DAJA [facility] [id number] Univers 13:00:00 13:00:00 JENI [facility] 2022-09-18 2022-09-18 Telephone [facility] 1.2.883.195 [id number] Univers 00:00:00 00:00:00 Alexandra TRISH 350.1.13.10 i ty of [facility] [place] [id number] [address] 2022-09-18 2022-09-18 Telephone [facility] 1.2.921.181 [id number] Univers 00:00:00 00:00:00 Alexandra TRISH 350.1.13.10 i ty of [facility] [place] [id number] [address] 2022-09-17 2022-09-17 Telephone [facility]UST 1.2.840.114 [id number] Univers 00:00:00 00:00:00 Jeni CHAMBERS 350.1.13.10 i ty [place] [phone] [address] 2022-09-13 2022-09-13 Outpatient R [facility] [id number] Univers 11:00:00 11:00:00 ity of [facility] 2022-09-13 2022-09-13 Telephone NimoFormerly [facility] 1.2.840.114 [id number] Univers 00:00:00 00:00:00 Ramón CHAMBERS 350.1.13.10 ity of [facility] [place] [id number] [address] 2022-09-13 2022-09-13 Telephone [facility] 1.2.840.114 [id number] Univers 00:00:00 00:00:00 Jeni CHAMBERS 350.1.13.10 i ty of [facility] 4[place] [phone] Nh dical [address] 2022-09-12 2022-09-12 Emergency [facility] 1.2.840.114 [id number] Univers 21:33:00 22:56:00 Hui CHAMBERS 350.1.13.10 ity of [facility] [place] [id number] Medi dilshad [address] [place] 2022-09-12 2022-09-12 [facility] [id number] Univers 15:07:02 21:32:00 ALEXANDRA ity [facility] 2022-09-12 2022-09-12 Hospital [facility] 1.2.840.114 [id number] Univers 15:07:02 21:32:00 Encounter Alxeandra CHAMBERS 350.1.13.10 it[place] [phone] [facility] dilshad [address] [place] 2022-09-12 2022-09-12 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, 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 [facility] 1.2.840.114 [id number] Univers 15:30:00 15:45:00 Visit Alexandra Finnegan 350.1.13.10 it[place] of [place] [id number] Nh dical NAL 353 [facility] 2022-09-12 2022-09-12 Outpatient [facility] [id number] Univers 13:30:00 14:26:44 ALEXANDRA consuelogrant [facility] 2022-09-12 2022-09-12 Office [facility] 1.2.840.114 [id number] Univers 13:30:00 14:26:44 Visit Alexandra CHAMBERS 350.1.13.10 i ty of [facility] [place] [id number] Nh dical NAL 044 [facility] 2022-09-12 2022-09-12 Telephone [facility] 1.2.104.891 [id number] Univers 00:00:00 00:00:00 Alexandra CHAMBERS 350.1.13.10 i ty of [facility] [place] [phone] Nh dical NAL 044 [facility] 2022-09-12 2022-09-12 Telephone [facility] 1.2.357.228 [id number] Univers 00:00:00 00:00:00 Alexandra TRISH 350.1.13.10 i ty of [facility] [place] [id number] Nh dical NAL [address] [place] [address] 2022-09-11 2022-09-11 Telephone [facility] 1.2.840.114 [id number] Univers 00:00:00 00:00:00 Matthewsocorrogutierrez CHAMBERS 350.1.13.10 ity of [facility] [place] [phone] Nh dical NAL [address] [place] [address] 2022-09-10 2022-09-10 Outpatient R [facility] [id number] Univers 10:30:00 11:36:35 JENI ity of [facility] 2022-09-06 2022-09-06 Telephone [facility] 1.2.840.114 [id number] Univers 00:00:00 00:00:00 Ramón CHAMBERS 350.1.13.10 ity of [place] [phone] Nh dical NAL [address] [place] [address] 2022-09-06 2022-09-06 Telephone [facility] 1.2.840.114 [id number] Univers 00:00:00 00:00:00 Ramón CHAMBERS 350.1.13.10 ity of [place] [id number] Nh dical NAL [address] [place] [address] 2022-09-05 2022-09-05 Refill [facility] 1.2.840.114 [id number] Univers 00:00:00 00:00:00 Matthewsocorrolizzu [place] 350.1.13.10 ity of [place] [id number] Nh dical NAL [address] [place] [address] 2022-09-04 2022-09-04 Patient [facility] 1.2.840.114 [id number] Univers 00:00:00 00:00:00 Outreach Mari CHAMBERS 350.1.13.10 ity of [facility] [place] [phone] [facility] 231 [facility] 2022-09-04 2022-09-04 Orders Doctor LIBERTY 1.2.840.114 [id number] Univers 00:00:00 00:00:00 Only Unassigned, BRANDEE 350.1.13.10 ity of [place] [facility] 4.2.7.2.686 Suhas as [phone] [address] 2022-09-02 2022-09-02 Telephone [facility], [facility] 1.2.840.114 [id number] Univers 00:00:00 00:00:00 Ramón CHAMBERS 350.1.13.10 ity of [facility] 4[place] [phone] Nh dic[address] 2022-08-30 2022-08-30 Telephone [facility] 1.2.840.114 [id number] Univers 00:00:00 00:00:00 Ogestevan CHAMBERS 350.1.13.10 ity of [facility] [place] [phone] Nh dical NAL [address] [place] [address] 2022-08-28 2022-08-28 Telephone [facility], [facility] 1.2.840.114 [id number] Univers 00:00:00 00:00:00 Ramón CHAMBERS 350.1.13.10 ity of [facility] [place] [id number] Nh dical NAL [address] [place] [address] 2022-08-27 2022-08-27 Telephone [facility], [facility] 1.2.840.114 [id number] Univers 00:00:00 00:00:00 Ogestevan CHAMBERS 350.1.13.10 ity of [facility] 4[place] [phone] Nh dic[address] 2022-08-27 2022-08-27 Telephone [facility] 1.2.840.114 [id number] Univers 00:00:00 00:00:00 Ogechukwu [place] 350.1.13.10 ity of [place] [phone] Nh dical NAL [address] [place] [address] 2022-08-26 2022-08-26 Orders Doctor LIBERTY 1.2.840.114 [id number] Univers 00:00:00 00:00:00 Only Unassigned, BRANDEE 350.1.13.10 ity of [facility] 4.2.7.2.686 [place] as [phone] [address] 2022-08-26 2022-08-26 Telephone [facility] 1.2.840.114 [id number] Univers 00:00:00 00:00:00 Ogechukwu [place] 350.1.13.10 [place] [phone] Nh dical NAL [address] [place] [address] 2022-08-21 2022-08-21 Abstract [facility] 1.2.334.588 7919 01615 Univers 00:00:00 00:00:00 Ogechukwu [place] 350.1.13.10 [place] [id number] Nh dicwy NAL [address] [place] [address] 2022-08-19 2022-08-19 Telephone [facility] 1.2.840.114 102 [id number] Univers 00:00:00 00:00:00 Ogechukwu [place] 350.1.13.10 [place] [id number] Nh dical NAL [address] [place] [address] 2022-08-15 2022-08-15 Outpatient R [facility] 577 [id number] Univers 15:40:00 15:40:00 LEIGHTON JEFFERSON it y of [facility] 2022-08-14 2022-08-14 Emergency X CHASITY, [facility] ERT 99424 [id number] Univers 00:06:00 03:01:00 LES ity [facility] 2022-08-14 2022-08-14 Emergency Tezroberto [facility] 1.2.840.114 1 [id number] Univers 00:06:00 03:01:00 Les [place] 350.1.13.10 [place] [id number] [facility] [address] 2022-08-08 2022-08-08 Outpatient R [facility] [id number] Univers 16:45:00 15:22:09 BLAS ity [facility] 2022-08-07 2022-08-07 Orders Doctor LIBERTY 1.2.840.114 [id number] Univers 00:00:00 00:00:00 Only Unassigned, BRANDEE 350.1.13.10 ity of [place] [facility] 4.2.7.2.686 Suhas as [phone] [facility] [address] 2022-08-07 2022-08-07 Telephone Nimo [facility] 1.2.840.114 102 [id number] Univers 00:00:00 00:00:00 Ramón [place] 350.1.13.10 ity [facility] [place] [id number] Nh dicwy NAL [address] [place] [address] 2022-08-05 2022-08-05 Outpatient R RAMÓN KRAFT [facility] [id number] Univers 13:00:00 14:16:22 RAMÓN KRAFT [facility] 2022-08-05 2022-08-05 Office Nimo [facility] 1.2.840.114 [id number] 9187 Univers 13:00:00 14:16:22 Visit Ramón [place] 350.1.13.10 ity [facility] [place] [phone] Nh dicwy NAL [address] [place] [address] 2022-08-05 2022-08-05 Patient Bao [facility] 1.2.840.114 [id number] 714 Univers 00:00:00 00:00:00 Outreach Mari [place] 350.1.13.10 [place] [phone] Nh dical [facility] [address] BUILDING 2022-08-02 2022-08-02 Orders Doctor LIBERTY 1.2.840.114 [id number] 861 Univers 00:00:00 00:00:00 Only Unassigned, BRANDEE 350.1.13.10 ity of [place] [facility] 4.2.7.2.686 Suhas as [phone] [facility] [address] 2022-08-02 2022-08-02 Telephone LIBERTY Mcneal 1.2.840.114 10 [id number] Univers 00:00:00 00:00:00 Clare IRVIN 350.1.13.10 it y of HOSPITAL 4.2.7.2.686 [place] as [phone] [facility] [address] 2022-08-01 2022-08-01 Transition Edy CARLOS AWilberto 1.2.840.114 102 [id number] Univers 00:00:00 00:00:00 of Care Alex MORALES 350.1.13.10 ity [place] [phone] [facility] [address] 2022-08-01 2022-08-01 Telephone LIBERTY Mcneal 1.2.840.114 10 [id number] Univers 00:00:00 00:00:00 Clare BRANDEE 350.1.13.10 it y of HOSPITAL 4.2.7.2.686 [place] as [phone] [facility] 025 [place] 2022-07-28 2022-07-31 Inpatient U GAELHELEN [facility] [id number] Univers 01:36:00 19:14:00 MALIK ity of [facility] 2022-07-28 2022-07-31 Hospital Brennan Love 1.2.840.114 [id number] Univers 01:36:00 19:14:00 Encounter Mayo Malik BRANDEE 350.1.13.10 ity of [facility] 4.2.7.2.686 Su[place] as [phone] [facility] [address] 2022-07-18 2022-07-19 Emergency [facility] 1.2.193.046 0066 36432 Univers 21:30:00 01:47:00 [facility] 350.1.13.10 ity [facility] 4.2.7.2.686 [facility] [id number] [place] [address] Branch 2022-07-18 2022-07-19 Emergency X CATALINO ALBARI [facility] [id number] Univers 21:30:00 [facility]:47[facility]22-07[facility]03 [facility] 1.2.840.1 [id number] Methodi 10:52:00 03:00:00 Encounter Wilberto Joe Nha 13948.1.[address] Naif Cartagena 3.430.2.7 H ospita .3.015897 l .8 2022-06-25 2022-07-03 [facility] 1.2.840.1 [id number] Methodi 10:52:00 03:00:00 Encounter Wilberto Joe Nha 33112.1.[address] Naif [place] 3.430.2.7 H ospita .3.346767 l .8 2022-07-03 2022-07-03 Documentat Abrams, 1.2.840.1 [id number] 2 [id number] Methodi 00:00:00 00:00:00 ion Cheryle 57668.1.[address] 3.430.2.7 Hospit a .3.046432 l .8 2022-07-03 2022-07-03 Documentat Abrams, 1.2.840.1 [id number] 2 [id number] Methodi 00:00:00 00:00:00 [address]yle 73458.1.[address] 3.430.2.7 Hospit a .3.551300 l .8 2022-06-26 2022-06-26 Surgery Aaron, 1.2.840.1 [id number] 200261 3900 Methodi 16:50:00 18:20:[address] 3.430.2.7 Hospit a .3.164291 l .8 2022-06-26 2022-06-26 Surgery Nur, 1.2.840.1 [id number] 242897 5826 Methodi 16:50:00 18:20:[address] 3.430.2.7 Hospit a .3.207408 l .8 2022-06-26 2022-06-26 Anesthesia [facility] 1.2.840.1 104 713849 [id number] Methodi 16:46:00 17:36:00 Event Thong Torres 82187.1.[address] 3.430.2.7 Hospit a .3.152663 l .8 2022-06-26 2022-06-26 Anesthesia [facility] 1.2.840.1 104 256256 [id number] Methodi 16:46:00 17:36:00 Event Thong Torres 22497.1.[address] 3.430.2.7 Hospit a .3.321050 l .8 2022-06-25 2022-06-25 Office Nurko, 1.2.840.1 [id number] 088525 5396 Methodi 09:00:00 10:28:55 Visit Davin 36645.1.[address] 3.430.2.7 Hospit a .3.597626 l .8 2022-06-25 2022-06-25 Office Nurko, 1.2.840.1 [id number] 366143 6800 Methodi 09:00:00 10:28:55 Visit Jin 48540.1.[address] 3.430.2.7 Hospit a .3.401966 l .8 2022-06-25 2022-06-25 Travel 1.2.840.1 1.2.615.918 3270 501565 Methodi 00:00:00 00:00:[address] 3.430.2.7 0.2.7.3.698 Ho spita .3.836013 084.8 l .8 2022-06-25 2022-06-25 Travel 1.2.840.1 1.2.531.805 6076 411019 Methodi 00:00:00 00:00:[address] 3.430.2.7 0.2.7.3.698 Ho spita .3.933465 084.8 l .8 2022-06-21 2022-06-21 Office Davin Walker 1.2.840.1 655231740 [id number] Methodi 13:00:00 14:47:04 Visit Louisa Escobar 57253.1.[address] 3.430.2.7 Hospit a .3.719671 l .8 2022-06-21 2022-06-21 Office Davin Walker 1.2.840.1 069531483 [id number] Methodi 13:00:00 14:47:04 Visit Louisa Escobar 27062.1.[address] 3.430.2.7 Hospit a .3.480395 l .8 2022-06-21 2022-06-21 Travel 1.2.840.1 1.2.248.576 1890 614429 Methodi 00:00:00 00:00:[address] 3.430.2.7 0.2.7.3.698 Ho spita .3.497955 084.8 l .8 2022-06-21 2022-06-21 Travel 1.2.840.1 1.2.474.259 3353 216730 Methodi 00:00:00 00:00:[address] 3.430.2.7 0.2.7.3.698 Ho spita .3.580177 084.8 l .8 2022-06-14 2022-06-14 Office Aaron 1.2.840.1 [id number] 625363 8063 Methodi 13:10:00 13:23:28 Visit Davin 09139.1.[address] 3.430.2.7 Hospit a .3.752372 l .8 2022-06-14 2022-06-14 Office [facility], 1.2.840.1 [id number] 764361 1284 Methodi 13:10:00 13:23:28 Visit Davin 34610.1.[address] 3.430.2.7 Hospit a .3.896098 l .8 2022-06-14 2022-06-14 Travel 1.2.840.1 1.2.412.523 0681 510563 Methodi 00:00:00 00:00:[address] 3.430.2.7 0.2.7.3.698 Ho spita .3.219198 084.8 l .8 2022-06-14 2022-06-14 Travel 1.2.840.1 1.2.583.220 5123 489126 Methodi 00:00:00 00:00:[address] 3.430.2.7 0.2.7.3.698 Ho spita .3.800259 084.8 l .8 2022-05-24 2022-05-24 Office [facility], 1.2.840.1 [id number] 400074 7558 Methodi 14:00:00 14:54:06 Visit Davin 21755.1.[address] 3.430.2.7 Hospit a .3.705831 l .8 2022-05-24 2022-05-24 Office [facility], 1.2.840.1 [id number] 038317 4170 Methodi 14:00:00 14:54:06 Visit Dvain 07574.1.[address] 3.430.2.7 Hospit a .3.544375 l .8 2022-05-24 2022-05-24 Travel 1.2.840.1 1.2.799.012 9601 986692 Methodi 00:00:00 00:00:[address] 3.430.2.7 0.2.7.3.698 Ho spita .3.202160 084.8 l .8 2022-05-24 2022-05-24 Travel 1.2.840.1 1.2.040.921 5733 323548 Methodi 00:00:00 00:00:[address] 3.430.2.7 0.2.7.3.698 Ho spita .3.122660 084.8 l .8 2022-05-08 2022-05-14 [facility]1 700634142 [id number] Methodi 11:57:00 14:24:00 Encounter Noman Brewer 01433.1.1 930 Ron Pizano 3.430.2.7 Hospita .3.690636 l .8 2022-05-08 2022-05-14 [facility] Kenneth Helms 1.2.840.1 [id number] Methodi 11:57:00 14:24:00 Encounter Noman Brewer 61894.1.1 930 Ron Pizano 3.430.2.7 Hospita .3.673952 l .8 2022-05-14 2022-05-14 Documentat Paulo, 1.2.840.1 582264544 [id number] Methodi 00:00:00 00:00:00 ion Alyse 22037.1.[address] 3.430.2.7 Hospit a .3.094210 l .8 2022-05-14 2022-05-14 Documentat Paulo, 1.2.840.1 818068573 [id number] Methodi 00:00:00 00:00:[address]lyse 19313.1.[address] 3.430.2.7 Hospit a .3.069078 l .8 2022-05-10 2022-05-10 Surgery Nurko, 1.2.840.1 969268313 381385 0961 Methodi 11:00:00 13:05:[address] 3.430.2.7 Hospit a .3.731888 l .8 2022-05-10 2022-05-10 Surgery Nurko, 1.2.840.1 329179881 137925 1024 Methodi 11:00:00 13:05:[address] 3.430.2.7 Hospit a .3.060538 l .8 2022-05-10 2022-05-10 Anesthesia Barcenas, Beulah 1.2.840.1 481468 023 [id number] Methodi 11:12:00 12:34:00 Event Mari Gamboa 68715.1.[address] 3.430.2.7 Hospit a .3.968562 l .8 2022-05-10 2022-05-10 Anesthesia Barcenas, Beulah 1.2.840.1 385608 023 7194944999 Methodi 11:12:00 12:34:00 Event MatheuspjMari 28750.1.[address] 3.430.2.7 Hospit a .3.810828 l .8 2022-04-24 2022-04-24 Patient Carly, 1.2.840.1 444600639 12904 10524 Methodi 00:00:00 00:00:00 Outreach Cheri 27921.1.1 432 s t 3.430.2.7 Hospit a .3.396718 l .8 2022-04-24 2022-04-24 Patient Carroll, 1.2.840.1 129118956 53412 37929 Methodi 00:00:00 00:00:00 Outreach Cheri 19863.1.1 432 s t 3.430.2.7 Hospit a .3.316626 l .8 2022-04-12 2022-04-19 [facility] .1 507922037 [id number] Methodi 15:27:00 19:06:00 Encounter Hector Orozco 49146.1.[address] Jose RafaeleloyFahad 3.430.2.7 Hospita Uriel Pastor .3.372715 l July García .8 2022-04-12 2022-04-19 [facility] 1.2.840 .1 866747606 1024330110 Methodi 15:27:00 19:06:00 Encounter Hector Orozco 74336.1.[address] Fahad Costello 3.430.2.7 Hospita Uriel Pastor .3.055144 l July García .8 2022-04-19 2022-04-19 Anesthesia Tu, 1.2.840.1 025616154 814 2651872 Methodi 14:04:00 14:26:00 Event Jesus 55004.1.[address] Thi 3.430.2.7 Hospit a .3.789310 l .8 2022-04-19 2022-04-19 Anesthesia Tu, 1.2.840.1 921081994 548 7886246 Methodi 14:04:00 14:26:00 Event Jesus 66175.1.[address] Thi 3.430.2.7 Hospit a .3.980895 l .8 2022-03-08 2022-03-14 Hospital [facility] 1.2.840.1 10 8772496 [id number] Methodi 22:25:00 20:26:00 En[place] 31432.1.[address] [facility] Ron Ding [facility].430.2.7 [facility] .3.298745 l Noman Brewer .8 2022-03-08 2022-03-14 Hospital [facility] 1.2.840.1 10 4832524 [id number] Methodi 22:25:00 20:26:00 Encounter [place]Jeff [place]i 43996.1.[address] Harinder Ron Ding 3.430.2.7 Hospita [facility] .3.771150 l Noman Brewer .8 2022-03-12 2022-03-12 Surgery Nur, 1.2.840.1 586193037 798577 5064 Methodi 14:03:00 15:48:[address] 3.430.2.7 Hospit a .3.118956 l .8 2022-03-12 2022-03-12 Surgery Nurko, 1.2.840.1 398089456 294671 2208 Methodi 14:03:00 15:48:[address] 3.430.2.7 Hospit a .3.419240 l .8 2022-03-12 2022-03-12 Anesthesia Urrutia, 1.2.840.1 567690225 531 0641467 Methodi 14:23:00 15:33:00 Event Mary Estevez 58367.1.[address] 3.430.2.7 Hospit a .3.091758 l .8 2022-03-12 2022-03-12 Anesthesia Urrutia, 1.2.840.1 716081945 609 8773119 Methodi 14:23:00 15:33:00 Event Mary Estevez 85526.1.[address] 3.430.2.7 Hospit a .3.400436 l .8 2022-03-08 2022-03-08 Travel 1.2.840.1 1.2.895.924 9409 188173 Methodi 00:00:00 00:00:[address] 3.430.2.7 0.2.7.3.698 Ho spita .3.417304 084.8 l .8 2022-03-08 2022-03-08 Travel 1.2.840.1 1.2.919.194 8757 040529 Methodi 00:00:00 00:00:[address] 3.430.2.7 0.2.7.3.698 Ho spita .3.607706 084.8 l .8 2022-01-01 2022-01-05 [id number] [facility] 16:59:00 12:20:00 Ab Doyle [facility] 2021-12-10 2021-12-14 [facility] Wilberto Carbajal 1.2.840.1 104 552959 [id number] Methodi 21:52:00 15:50:00 Encounter Ale Farias 64824.1.[address] René De Jesus 3.430.2.7 Hospita .3.772469 l .8 2021-12-10 2021-12-10 Travel 1.2.840.1 1.2.258.623 5925 172825 Methodi 00:00:00 00:00:[address] 3.430.2.7 0.2.7.3.698 Ho spita .3.867184 084.8 l .8 2021-11-08 2021-11-08 Emergency Mitzi, 1.2.840.1 962303161 2100 248298 Methodi 10:26:00 14:01:[address] 3.430.2.7 Hospit a .3.460275 l .8 2021-10-10 2021-10-10 Emergency IpFahad 1.2.840.1 968743856 [id number] Methodi 20:57:00 23:49:[address] 3.430.2.7 Hospit a .3.503798 l .8 2021-10-07 2021-10-07 Emergency EM Janina [facility] [id number] [facility] 06:46:00 07:39:00 Jerry 58 [facility] 2021-09-30 2021-09-30 Emergency EM Nataly [facility] [id number] [facility] 18:18:00 19:46:00 Margo 39 [facility] 2021-08-15 2021-08-15 Outpatient GC_HGMDA_Go PRIV PRIV 110 27619-9 [facility] 09:28:00 09:28:00 nzalez_J [id number] Medic al 2021-08-13 2021-08-13 Outpatient GC_HGMDA_Go PRIV PRIV 110 34499-3 [facility] 12:25:00 12:25:00 nzalez_J [id number] Medic al 2021-08-06 2021-08-06 Emergency EM RICHARDSON Dupont [facility] [id number] [facility] 15:06:00 18:56:00 Brennan 32 [facility] 2021-07-18 2021-07-18 Outpatient IDANIA [facility] [id number] 00:00:00 00:00:00 [facility] 2021-06-29 2021-06-29 Office 0 Vielka [id number] 13:30:00 16:29:55 Visit 06 2021-06-29 2021-06-29 Outpatient Berta Schwab, [facility] 2343 820-20 [place] 13:13:00 13:13:00 Vielka [facility] 520892 [facility] 2021-03-22 2021-03-22 Travel 1.2.840.1 1.2.799.896 7078 484464 Methodi 00:00:00 00:00:[address] 3.430.2.7 0.2.7.3.698 Ho spita .3.891984 084.8 l .8 2021-02-02 2021-02-02 Emergency [facility] [id number] 8644 40854 [place] 14:47:00 17:56:00 grant Joycequique Marshall 2021-02-02 2021-02-02 Emergency [facility] [id number] [place] 15:08:10 15:31:04 [facility] 2021-01-02 2021-01-03 Emergency Juan, 1.2.840.1 [id number] 2 [id number] Methodi 18:54:00 01:22:00 Donaldo Ramos 15907.1.[address] 3.430.2.7 Hospit a .3.907570 l .8 2020-12-24 2020-12-24 Emergency EM RICHARDSON Roa NVER [id number] [facility] 12:04:00 17:13:00 Jerry 01 [facility] Results Test Description Test Time [...] g/dL 31.2-35.0 L RDW-SD (test code = 62852-9) 54.8 fL 38.5-51.6 H RDW-CV (test code = 788-0) 16.2 % 12.1-15.4 H PLT (test code = 777-3) 400 See_Comment H [Au tomated message] The system which ge nerated this result transmit yana reference range: 150 - 32 8 10*3/?L. The reference range was not used to interpret th is result as normal/abnormal . MPV (test code = 18618-4) 9.9 fL 9.8-13.0 NRBC/100 WBC (test code = 0.0 See_Comment [ Automated message] The 8627697900) system which [employer] nerated this result transmit yana reference range: 0.0 - 10 .0 /100 WBCs. The reference r maggi was not used to interpr et this result as normal/abnor mal. NRBC x10^3 (test code = See_Comment [Au tomated message] The 4523035228) system which [employer] nerated this result transmit yana reference range: 10*3/?L. The reference range was not u sed to interpret this result as normal/abnormal . GRAN MAT (NEUT) % (test code 54.6 % = 770-8) IMM GRAN % (test code = 3.70 % 6435800172) LYMPH % (test code = 736-9) 31.5 % MONO % (test code = 5905-5) 7.3 % EOS % (test code = 713-8) 2.2 % BASO % (test code = 706-2) 0.7 % GRAN MAT x10^3(ANC) (test 2.98 10*3/uL 1.99-6.95 code = 1376251359) IMM GRAN x10^3 (test code = 0.20 10*3/uL 0.00-0.06 H 5587243767) LYMPH x10^3 (test code = 1.72 10*3/uL 1.09-3.23 731-0) MONO x10^3 (test code = 0.40 10*3/uL 0.36-1.02 742-7) EOS x10^3 (test code = 0.12 10*3/uL 0.06-0.53 711-2) BASO x10^3 (test code = 0.04 10*3/uL 0.01-0.09 704-7) Lab Interpretation (test Abnormal code = 93843-5) [facility] WITH [id number] 21:59:01 Test Item Value Reference Range Interpretation Comments WBC (test code = 5.46 See_Comment [Automated 7090-2) message] The sy stem which generated this result transmitted reference range : 4.20 - 10.70 10*3/?L. The reference range was not used to interpret this result as normal/abnormal . RBC (test code = 3.38 See_Comment L [Automated 529-8) message] The sy stem which generated this [...] (test code = 54.8 fL 38.5-51.6 H 67686-4) RDW-CV (test code = 16.2 % 12.1-15.4 H 788-0) PLT (test code = 400 See_Comment H [Automated 777-3) message] The sy stem which generated this result transmitted reference range : 150 - 328 10*3/ ?L. The reference r maggi was not used to interpret this result as normal/abnormal . MPV (test code = 9.9 fL 9.8-13.0 97147-1) NRBC/100 WBC (test 0.0 See_Comment [Automat ed code = 4275950486) message] The system which generated this result transmitted reference range : 0.0 - 10.0 /100 WBCs. The refer ence range was not u sed to interpret th is result as normal/abnormal . NRBC x10^3 (test code See_Comment [Auto mated = 1247915177) message] The s ystem which generated this result transmitted reference range : 10*3/?L. The reference range was not used to interpret this result as normal/abnormal . GRAN MAT (NEUT) % 54.6 % (test code = 770-8) IMM GRAN % (test code 3.70 % = 6646066308) LYMPH % (test code = 31.5 % 736-9) MONO % (test code = 7.3 % 5905-5) EOS % (test code = 2.2 % 713-8) BASO % (test code = 0.7 % 706-2) GRAN MAT x10^3(ANC) 2.98 10*3/uL 1.99-6.95 (test code = 4042100673) IMM GRAN x10^3 (test 0.20 10*3/uL 0.00-0.06 H code = 2639961109) LYMPH x10^3 (test code 1.72 10*3/uL 1.09-3.23 = 731-0) MONO x10^3 (test code 0.40 10*3/uL 0.36-1.02 = 742-7) EOS x10^3 (test code = 0.12 10*3/uL 0.06-0.53 711-2) BASO x10^3 (test code 0.04 10*3/uL 0.01-0.09 = 704-7) Lab Interpretation Abnormal (test code = 58700-9) [facility]53:02 Test Item Value Reference Range Interpretation Comments TSH (test code = 0.20 See_Comment L [Automated message] 8295206701) The system [employer] generated this result transmitted ref erence range: 0.45 - 4 .70 mIU/L. The refe rence range was not u sed to interpret this result as normal/abnor mal. Lab Interpretation (test Abnormal code = 42238-2) [facility]2023-08-28 21:53:02 Test Item Value Reference Range Interpretation Comments TSH (test code = 0.20 See_Comment L [Automated message] [id number]) The system [employer] generated this result transmitted ref erence range: 0.45 - 4 .70 mIU/L. The refe rence range was not u sed to interpret this result as normal/abnor mal. Lab Interpretation (test Abnormal code = 83365-8) [place] 844102023-08-28 21:38:58 Test Item Value Reference Range Interpretation Comments FREE T4 (test code = 2.05 See_Comment [Autom ated message] 1635180855) The system [employer] generated this result transmitted ref erence range: 0.78 - 2 .20 ng/dL:. The ref erence range was not u sed to interpret this result as normal/abnor mal. Lab Interpretation (test Normal code = 10367-1) [place] [id number] 21:38:58 Test Item Value Reference Range Interpretation Comments FREE T4 (test code = 2.05 See_Comment [Autom ated message] [id number]) The system [employer] generated this result transmitted ref erence range: 0.78 - 2 .20 ng/dL:. The ref erence range was not u sed to interpret this result as normal/abnor mal. Lab Interpretation (test Normal code = 58126-3) [facility]TOTAL CHOLESTEROL, TRIGLYCERIDES, HDL)2022-12-16 21:23:18 Test Item Value Reference Range Interpretation Comments CHOL (test code = 9516532611) 119 mg/dL 120-200 L HDL (test code = 9947320780) 28 mg/dL >=40 L HDLC RATIO (test code = 1801555969) 4.3 <=5.0 TRIG (test code = 8764194030) 118 mg/dL 30-170 LDL CHOL (test code = 87583-2) 67 mg/dL <=160 VLDL (test code = 6324418993) 24 mg/dL 5-60 Lab Interpretation (test code = Abnormal 86850-2) [facility]230[facility])(TOTAL CHOLESTEROL, TRIGLYCERIDES, HDL)2022-12-16 21:23:18 Test Item Value Reference Range Interpretation Comments CHOL (test code = 5434792115) 119 mg/dL 120-200 L HDL (test code = 3915719089) 28 mg/dL >=40 L HDLC RATIO (test code = 0728407111) 4.3 <=5.0 TRIG (test code = 5364413051) 118 mg/dL 30-170 LDL CHOL (test code = 26462-5) 67 mg/dL <=160 VLDL (test code = 6528219112) 24 mg/dL 5-60 Lab Interpretation (test code = Abnormal 82592-3) [facility] (95972)2022-12-16 21:22:58 Test Item Value Reference Range Interpretation Comments NA (test code = 140 mmol/L 135-145 4636089546) K (test code = 5.2 mmol/L 3.5-5.0 H 1141591456) CL (test code = 103 mmol/L 98-108 1984491852) CO2 TOTAL (test code = 27 mmol/L 23-31 2245398732) AGAP (test code = 10 2-16 4748873078) BUN (test code = 51 mg/dL 7-23 H 4592373059) GLUCOSE (test code = 145 mg/dL 70-110 H 5885152533) CREATININE (test code = 2.84 mg/dL 0.60-1.25 H 4117108356) TOTAL BILI (test code = 0.1 mg/dL 0.1-1.2 9539013353) CALCIUM (test code = 8.7 mg/dL 8.6-10.6 5857086096) T PROTEIN (test code = 7.0 g/dL 6.3-8.2 9979453171) ALBUMIN (test code = 3.7 g/dL 3.5-5.0 0806718389) ALK PHOS (test code = 71 U/L 34-122 8532098503) ALTv (test code = 19 U/L 5-50 2-6) AST(SGOT) (test code = 18 U/L 13-40 9938227692) eGFR (test code = 23.3 mL/min/1.73m2 1825027197) MOE (test code = MOE) Association of [...] tests). Lab Interpretation Abnormal (test code = 11628-1) [facility]. METABOLIC PANEL (55945)2022-12-16 21:22:58 Test Item Value Reference Range Interpretation Comments NA (test code = 140 mmol/L 135-145 7553749364) K (test code = 5.2 mmol/L 3.5-5.0 H 4781645371) CL (test code = 103 mmol/L 98-108 0949356391) CO2 TOTAL (test code = 27 mmol/L 23-31 8728819812) AGAP (test code = 10 2-16 0265304914) BUN (test code = 51 mg/dL 7-23 H 1527254836) GLUCOSE (test code = 145 mg/dL 70-110 H 5920483633) CREATININE (test code = 2.84 mg/dL 0.60-1.25 H 8348927176) TOTAL BILI (test code = 0.1 mg/dL 0.1-1.5 1979457786) CALCIUM (test code = 8.7 mg/dL 8.6-10.6 9152079067) T PROTEIN (test code = 7.0 g/dL 6.3-8.2 0818638402) ALBUMIN (test code = 3.7 g/dL 3.5-5.0 8480620228) ALK PHOS (test code = 71 U/L 34-122 0848602929) ALTv (test code = 19 U/L 5-50 1742-6) AST(SGOT) (test code = 18 U/L 13-40 7301227498) eGFR (test code = 23.3 mL/min/1.73m2 0955167479) MOE (test code = MOE) Association of [...] tests). Lab Interpretation Abnormal (test code = 02947-0) [facility]A1C[facility]2022-12-16 20:33:38 Test Item Value Reference Range Interpretation Comments HGB A1C (test code = 7.3 % 4.0-5.7 H 4548-4) MOE (test code = MOE) Reference RangesNormal: <5.7%Prediabetes: 5.7 - 6.4%Diabetes: > 6.5% Lab Interpretation (test Abnormal code = 17271-0) [facility]A1C[facility]2022-12-16 20:33:38 Test Item Value Reference Range Interpretation Comments HGB A1C (test code = 7.3 % 4.0-5.7 H 4548-4) MOE (test code = MOE) Reference RangesNormal: <5.7%Prediabetes: 5.7 - 6.4%Diabetes: > 6.5% Lab Interpretation (test Abnormal code = 34172-7) [facility] (NA, K, CL, CO2, GLUCOSE, BUN, CREATININE, CA)2022-09-13 03:38:19 Test Item Value Reference Range Interpretation Comments NA (test code = 137 mmol/L 135-145 6862148967) K (test code = 5.9 mmol/L 3.5-5.0 H 7623166586) CL (test code = 103 mmol/L 98-108 0988437764) CO2 TOTAL (test code = 25 mmol/L 23-31 1698998009) AGAP (test code = 9 2-16 [id number]) BUN (test code = 23 mg/dL 7-23 2439806461) GLUCOSE (test code = 235 mg/dL 70-110 H 9997687231) CREATININE (test code = 1.14 mg/dL 0.60-1.25 0179570387) CALCIUM (test code = 8.8 mg/dL 8.6-10.6 6867653089) eGFR (test code = 66.7 mL/min/1.73m2 3828624946) MOE (test code = MOE) Association of [...] tests). Lab Interpretation Abnormal (test code = 53027-6) [facility] GLUCOSE (AUTOMATED)2022-08-14 07:30:03 Test Item Value Reference Range Interpretation Comments POCT GLU (test code = 5437087167) 175 mg/dL 70-110 H Lab Interpretation (test code = Abnormal 13664-1) [facility] METABOLIC PANEL (NA, K, CL, CO2, GLUCOSE, BUN, CREATININE, CA)2022-08-14 06:49:10 Test Item Value Reference Range Interpretation Comments NA (test code = 137 mmol/L 135-145 7323425635) K (test code = 4.8 mmol/L 3.5-5.0 9301712121) CL (test code = 106 mmol/L 98-108 3824313121) CO2 TOTAL (test code = 25 mmol/L 23-31 6058546046) AGAP (test code = 6 2-16 1548885131) BUN (test code = 35 mg/dL 7-23 H 3195720473) GLUCOSE (test code = 187 mg/dL 70-110 H 3816710574) CREATININE (test code = 1.19 mg/dL 0.60-1.25 2108431497) CALCIUM (test code = 8.5 mg/dL 8.6-10.6 L 1777523595) eGFR (test code = 63.5 mL/min/1.73m2 1437024650) MOE (test code = MOE) Association of [...] tests). Lab Interpretation Abnormal (test code = 32057-8) [facility] WITH [id number] 06:35:09 Test Item Value Reference Range Interpretation [...] (test code = 58.6 fL 38.5-51.6 H 62700-7) RDW-CV (test code = 17.5 % 12.1-15.4 H 788-0) PLT (test code = 328 See_Comment [Automated 777-3) message] The sy stem which generated this result transmitted reference range : 150 - 328 10*3/ ?L. The reference r maggi was not used to interpret this result as normal/abnormal . MPV (test code = 10.1 fL 9.8-13.0 27454-0) NRBC/100 WBC (test 0.0 See_Comment [Automat ed code = 7146546909) message] The system which generated this result transmitted reference range : 0.0 - 10.0 /100 WBCs. The refer ence range was not u sed to interpret th is result as normal/abnormal . NRBC x10^3 (test code See_Comment [Auto mated = 7639304496) message] The s ystem which generated this result transmitted reference range : 10*3/?L. The reference range was not used to interpret this result as normal/abnormal . GRAN MAT (NEUT) % 63.9 % (test code = 770-8) IMM GRAN % (test code 0.50 % = 8840848317) LYMPH % (test code = 24.9 % 736-9) MONO % (test code = 7.4 % 5905-5) EOS % (test code = 2.4 % 713-8) BASO % (test code = 0.9 % 706-2) GRAN MAT x10^3(ANC) 4.21 10*3/uL 1.99-6.95 (test code = 7272562563) IMM GRAN x10^3 (test 0.03 10*3/uL 0.00-0.06 code = 2266387787) LYMPH x10^3 (test code 1.64 10*3/uL 1.09-3.23 = 731-0) MONO x10^3 (test code 0.49 10*3/uL 0.36-1.02 = 742-7) EOS x10^3 (test code = 0.16 10*3/uL 0.06-0.53 711-2) BASO x10^3 (test code 0.06 10*3/uL 0.01-0.09 = 704-7) Lab Interpretation Abnormal (test code = 22925-4) [facility] 12 [id number] 20:13:46 Test Item Value Reference Range Interpretation Comments Ventricular rate (test 79 code = 253) Atrial rate (test code 79 = 255) MA interval (test code 150 = 266) QRSD [...] Cannon MD ([id number]) on 08/08/2022 3:13:[address]2023-04-20 20:13:46 Test Item Value Reference Range Interpretation Comments Ventricular rate (test 79 code = 253) Atrial rate (test code 79 = 255) MA interval (test code 150 = 266) QRSD [...] Cannon MD ([id number]) on 08/08/2022 3:13:[address]2023-04-20 20:13:46 Test Item Value Reference Range Interpretation Comments Ventricular rate (test 79 code = 253) Atrial rate (test code 79 = 255) MA interval (test code 150 = 266) QRSD [...] Cannon MD ([id number]) on 08/08/2022 3:13:[address]2023-04-20 20:13:46 Test Item Value Reference Range Interpretation Comments Ventricular rate (test 79 code = 253) Atrial rate (test code 79 = 255) MA interval (test code 150 = 266) QRSD [...] Cannon MD ([id number]) on 08/08/2022 3:13:[address]2023-04-20 20:13:46 Test Item Value Reference Range Interpretation Comments Ventricular rate (test 79 code = 253) Atrial rate (test code 79 = 255) MA interval (test code 150 = 266) QRSD [...] Cannon MD ([id number]) on 08/08/2022 3:13:[address] PM [address]2023-04-20 20:13:46 Test Item Value Reference Range Interpretation Comments Ventricular rate (test 79 code = 253) Atrial rate (test code 79 = 255) MA interval (test code 150 = 266) QRSD [...] Cannon MD ([id number]) on 08/08/2022 3:13:[address]2023-04-20 20:13:46 Test Item Value Reference Range Interpretation Comments Ventricular rate (test 79 code = 253) Atrial rate (test code 79 = 255) MA interval (test code 150 = 266) QRSD [...] Cannon MD ([id number]) on 08/08/2022 3:13:[address] PM [address]2023-04-20 20:13:46 Test Item Value Reference Range Interpretation Comments Ventricular rate (test 79 code = 253) Atrial rate (test code 79 = 255) MA interval (test code 150 = 266) QRSD [...] Cannon MD ([id number]) on 08/08/2022 3:13:[address] PM [address]2023-04-20 20:13:46 Test Item Value Reference Range Interpretation Comments Ventricular rate (test 79 code = 253) Atrial rate (test code 79 = 255) MA interval (test code 150 = 266) QRSD [...] Cannon MD ([id number]) on 08/08/2022 3:13:[address]2023-04-20 20:13:46 Test Item Value Reference Range Interpretation Comments Ventricular rate (test 79 code = 253) Atrial rate (test code 79 = 255) MA interval (test code 150 = 266) QRSD [...] lengthened-Electronica lly Signed By Jaspreet Cannon MD ([id number]) on 08/08/2022 3:13:[address]2023-04-20 20:13:46 Test Item Value Reference Range Interpretation Comments Ventricular rate (test 79 code = 253) Atrial rate (test code 79 = 255) MA interval (test code 150 = 266) QRSD [...] Cannon MD ([id number]) on 08/08/2022 3:13:[address]2023-04-20 20:13:46 Test Item Value Reference Range Interpretation Comments Ventricular rate (test 79 code = 253) Atrial rate (test code 79 = 255) MA interval (test code 150 = 266) QRSD [...] Cannon MD ([id number]) on 08/08/2022 3:13:[address]2023-04-20 20:13:46 Test Item Value Reference Range Interpretation Comments Ventricular rate (test 79 code = 253) Atrial rate (test code 79 = 255) MA interval (test code 150 = 266) QRSD [...] lengthened-Electronica lly Signed By Jaspreet Cannon MD ([id number]) on 08/08/2022 3:13:[address]2023-04-20 20:13:46 Test Item Value Reference Range Interpretation Comments Ventricular rate (test 79 code = 253) Atrial rate (test code 79 = 255) MA interval (test code 150 = 266) QRSD [...] Cannon MD ([id number]) on 08/08/2022 3:13:[address] [facility]2023-04-20 05:30:00 Test Item Value Reference Range Interpretation Comments AFB culture No growth Specimen isolate (test after 6 weeks InformationSp ecimen code = 543-9) of Source: Tissue Specimen incubation. Site: Leg: Left Lower Extremity - Cul ture [facility]2023-04-20 05:30:00 Test Item Value Reference Range Interpretation Comments AFB culture No growth Specimen isolate (test after 6 weeks InformationSp ecimen code = 543-9) of Source: Tissue Specimen incubation. Site: Leg: Left Lower Extremity - Cul ture [facility]2023-04-20 05:30:00 Test Item Value Reference Range Interpretation Comments AFB culture No growth Specimen isolate (test after 6 weeks InformationSp ecimen code = 543-9) of Source: Tissue Specimen incubation. Site: Leg: Left Lower Extremity [facility]2023-04-20 05:30:00 Test Item Value Reference Range Interpretation Comments AFB culture No growth Specimen isolate (test after 6 weeks InformationSp ecimen code = 543-9) of Source: Tissue Specimen incubation. Site: Leg: Left Lower Extremity - [facility]2023-04-20 05:30:00 Test Item Value Reference Range Interpretation Comments AFB culture No growth Specimen isolate (test after 6 weeks InformationSp ecimen code = 543-9) of Source: Tissue Specimen incubation. Site: Leg: Left Lower Extremity [facility]2023-04-20 05:30:00 Test Item Value Reference Range Interpretation Comments AFB culture No growth Specimen isolate (test after 6 weeks InformationSp ecimen code = 543-9) of Source: Tissue Specimen incubation. Site: Leg: Left Lower Extremity [facility]2023-04-20 05:30:00 Test Item Value Reference Range Interpretation Comments AFB culture No growth Specimen isolate (test after 6 weeks InformationSp ecimen code = 543-9) of Source: Tissue Specimen incubation. Site: Leg: Left Lower Extremity [facility]2023-04-20 05:30:00 Test Item Value Reference Range Interpretation Comments AFB culture No growth Specimen isolate (test after 6 weeks InformationSp ecimen code = 543-9) of Source: Tissue Specimen incubation. Site: Leg: Left Lower Extremity [facility]2023-04-20 05:30:00 Test Item Value Reference Range Interpretation Comments AFB culture No growth Specimen isolate (test after 6 weeks InformationSp ecimen code = 543-9) of Source: Tissue Specimen incubation. Site: Leg: Left Lower Extremity [facility]2023-04-20 05:30:00 Test Item Value Reference Range Interpretation Comments AFB culture No growth Specimen isolate (test after 6 weeks InformationSp ecimen code = 543-9) of Source: Tissue Specimen incubation. Site: Leg: [facility] Lower [facility]ity [facility] [id number] 05:30:00 Test Item Value Reference Range Interpretation Comments AFB culture No growth Specimen isolate (test after 6 weeks InformationSp ecimen code = 543-9) of Source: Tissue Specimen incubation. Site: Leg: Left Lower Extremity [facility] [id number] 05:30:00 Test Item Value Reference Range Interpretation Comments AFB culture No growth Specimen isolate (test after 6 weeks InformationSp ecimen code = 543-9) of Source: Tissue Specimen incubation. Site: Leg: Left Lower Extremity - [facility] [id number] 05:30:00 Test Item Value Reference Range Interpretation Comments AFB culture No growth Specimen isolate (test after 6 weeks InformationSp ecimen code = 543-9) of Source: Tissue Specimen incubation. Site: Leg: Left Lower Extremity - [facility] [id number] 05:30:00 Test Item Value Reference Range Interpretation Comments AFB culture No growth Specimen isolate (test after 6 weeks InformationSp ecimen code = 543-9) of Source: Tissue Specimen incubation. Site: Leg: Left Lower Extremity [facility] 22:28:25 Test Item Value Reference Range Interpretation Comments POCT GLU (test code = 5284686546) 116 mg/dL 70-110 H Lab Interpretation (test code = Abnormal 85715-5) [facility] GLUCOSE (AUTOMATED)2022-07-31 17:14:36 Test Item Value Reference Range Interpretation Comments POCT GLU (test code = 1402033993) 136 mg/dL 70-110 H Lab Interpretation (test code = Abnormal 58906-3) [facility] GLUCOSE (AUTOMATED)2022-07-31 01:47:10 Test Item Value Reference Range Interpretation Comments POCT GLU (test code = 9366609309) 141 mg/dL 70-110 H Lab Interpretation (test code = Abnormal 09868-4) [facility] GLUCOSE (AUTOMATED)2022-07-30 23:18:09 Test Item Value Reference Range Interpretation Comments POCT GLU (test code = 3557613474) 140 mg/dL 70-110 H Lab Interpretation (test code = Abnormal 58050-5) [facility] 18:43:38 Test Item Value Reference Range Interpretation Comments POCT GLU (test code = 6237091518) 165 mg/dL 70-110 H Lab Interpretation (test code = Abnormal 76504-7) [facility] GLUCOSE (AUTOMATED)2022-07-30 14:19:36 Test Item Value Reference Range Interpretation Comments POCT GLU (test code = 5593336682) 90 mg/dL 70-110 Lab Interpretation (test code = Normal 96162-6) [facility] GLUCOSE (AUTOMATED)2022-07-30 01:37:57 Test Item Value Reference Range Interpretation Comments POCT GLU (test code = 5754581237) 100 mg/dL 70-110 Lab Interpretation (test code = Normal 72816-0) [facility] GLUCOSE (AUTOMATED)2022-07-29 22:44:33 Test Item Value Reference Range Interpretation Comments POCT GLU (test code = 7468146127) 113 mg/dL 70-110 H Lab Interpretation (test code = Abnormal 14085-1) [facility] GLUCOSE (AUTOMATED)2022-07-29 18:36:00 Test Item Value Reference Range Interpretation Comments POCT GLU (test code = 7246040977) 108 mg/dL 70-110 Lab Interpretation (test code = Normal 40013-1) [facility] GLUCOSE (AUTOMATED)2022-07-29 13:47:37 Test Item Value Reference Range Interpretation Comments POCT GLU (test code = 0228450755) 91 mg/dL 70-110 Lab Interpretation (test code = Normal 80594-7) [facility] 01:19:16 Test Item Value Reference Range Interpretation Comments POCT GLU (test code = 1109314932) 143 mg/dL 70-110 H Lab Interpretation (test code = Abnormal 87789-4) [facility] GLUCOSE (AUTOMATED)2022-07-28 21:10:26 Test Item Value Reference Range Interpretation Comments POCT GLU (test code = 0569861545) 148 mg/dL 70-110 H Lab Interpretation (test code = Abnormal 68202-4) [facility] 17:13:13 Test Item Value Reference Range Interpretation Comments POCT GLU (test code = 4245263716) 199 mg/dL 70-110 H Lab Interpretation (test code = Abnormal 27291-9) [facility] GLUCOSE (AUTOMATED)2022-07-28 12:53:47 Test Item Value Reference Range Interpretation Comments POCT GLU (test code = 6503517534) 113 mg/dL 70-110 H Lab Interpretation (test code = Abnormal 24687-0) [facility] GLUCOSE (AUTOMATED)2022-07-28 08:02:41 Test Item Value Reference Range Interpretation Comments POCT GLU (test code = 6445454931) 126 mg/dL 70-110 H Lab Interpretation (test code = Abnormal 23289-9) [facility] [id number] 05:40:00 Test Item Value Reference Range Interpretation Comments Fungus culture No growth Specimen isolate (test after 4 weeks InformationSp ecimen code = 580-1) of Source: Tissue Specimen incubation. Site: Leg: Left Lower Extremity - Cul [facility] [id number] 05:40:00 Test Item Value Reference Range Interpretation Comments Fungus culture No growth Specimen isolate (test after 4 weeks InformationSp ecimen code = 580-1) of Source: Tissue Specimen incubation. Site: Leg: Left Lower Extremity - Cul [facility] [id number] 05:40:00 Test Item Value Reference Range Interpretation Comments Fungus culture No growth Specimen isolate (test after 4 weeks InformationSp ecimen code = 580-1) of Source: Tissue Specimen incubation. Site: Leg: Left Lower Extremity - Cul [facility] [id number] 05:40:00 Test Item Value Reference Range Interpretation Comments Fungus culture No growth Specimen isolate (test after 4 weeks InformationSp ecimen code = 580-1) of Source: Tissue Specimen incubation. Site: Leg: Left Lower Extremity - Cul [facility] [id number] 05:40:00 Test Item Value Reference Range Interpretation Comments Fungus culture No growth Specimen isolate (test after 4 weeks InformationSp ecimen code = 580-1) of Source: Tissue Specimen incubation. Site: Leg: Left Lower Extremity - Cul ture [facility]2023-04-06 05:40:00 Test Item Value Reference Range Interpretation Comments Fungus culture No growth Specimen isolate (test after 4 weeks InformationSp ecimen code = 580-1) of Source: Tissue Specimen incubation. Site: Leg: Left Lower Extremity - [facility]2023-04-06 05:40:00 Test Item Value Reference Range Interpretation Comments Fungus culture No growth Specimen isolate (test after 4 weeks InformationSp ecimen code = 580-1) of Source: Tissue Specimen incubation. Site: Leg: Left Lower Extremity - [facility]2023-04-06 05:40:00 Test Item Value Reference Range Interpretation Comments Fungus culture No growth Specimen isolate (test after 4 weeks InformationSp ecimen code = 580-1) of Source: Tissue Specimen incubation. Site: Leg: Left Lower Extremity - [facility]2023-04-06 05:40:00 Test Item Value Reference Range Interpretation Comments Fungus culture No growth Specimen isolate (test after 4 weeks InformationSp ecimen code = 580-1) of Source: Tissue Specimen incubation. Site: Leg: Left Lower Extremity - [facility]2023-04-06 05:40:00 Test Item Value Reference Range Interpretation Comments Fungus culture No growth Specimen isolate (test after 4 weeks InformationSp ecimen code = 580-1) of Source: Tissue Specimen incubation. Site: Leg: Left Lower Extremity - [facility]2023-04-06 05:40:00 Test Item Value Reference Range Interpretation Comments Fungus culture No growth Specimen isolate (test after 4 weeks InformationSp ecimen code = 580-1) of Source: Tissue Specimen incubation. Site: Leg: Left Lower Extremity - [facility]2023-04-06 05:40:00 Test Item Value Reference Range Interpretation Comments Fungus culture No growth Specimen isolate (test after 4 weeks InformationSp ecimen code = 580-1) of Source: Tissue Specimen incubation. Site: Leg: Left Lower Extremity - [facility]2023-04-06 05:40:00 Test Item Value Reference Range Interpretation Comments Fungus culture No growth Specimen isolate (test after 4 weeks InformationSp ecimen code = 580-1) of Source: Tissue Specimen incubation. Site: Leg: Left Lower Extremity - [facility] [id number] 05:40:00 Test Item Value Reference Range Interpretation Comments Fungus culture No growth Specimen isolate (test after 4 weeks [facility] of Source: Tissue Specimen incubation. Site: Leg: Left Lower Extremity - Cul [facility] Met[facility] Panel (76402)2022-07-19 03:26:53 Test Item Value Reference Range Interpretation Comments NA (test code = 140 mmol/L 135-145 7307737433) K (test code = 5.3 mmol/L 3.5-5.0 H 2188601189) CL (test code = 101 mmol/L 98-108 9851154191) CO2 TOTAL (test code = 27 mmol/L 23-31 8378030172) AGAP (test code = 12 2-16 0840924879) BUN (test code = 30 mg/dL 7-23 H 8710538273) GLUCOSE (test code = 189 mg/dL 70-110 H 4176514145) CREATININE (test code = 1.24 mg/dL 0.60-1.25 9503511663) TOTAL BILI (test code = 0.4 mg/dL 0.1-1.4 0907089032) CALCIUM (test code = 9.3 mg/dL 8.6-10.6 9558215094) T PROTEIN (test code = 8.0 g/dL 6.3-8.2 9524170967) ALBUMIN (test code = 4.1 g/dL 3.5-5.0 1701780502) ALK PHOS (test code = 107 U/L 34-122 7339954762) ALTv (test code = 43 U/L 5-50 1742-6) AST(SGOT) (test code = 38 U/L 13-40 1477121826) eGFR (test code = 60.5 mL/min/1.73m2 0722174266) MOE (test code = MOE) Association of [...] tests). Lab Interpretation Abnormal (test code = 49380-6) [facility] with [id number] 03:23:09 Test Item Value Reference Range Interpretation Comments WBC (test code = 6.48 See_Comment [Automated 5775-2) message] The sy stem which generated this result transmitted reference range : 4.20 - 10.70 10*3/?L. The reference range was not used to interpret this result as normal/abnormal . RBC (test code = 4.08 See_Comment L [Automated 708-8) message] The sy stem which generated this [...] RDW-SD (test code = 49.0 fL 38.5-51.6 23743-0) RDW-CV (test code = 15.0 % 12.1-15.4 788-0) PLT (test code = 542 See_Comment H [Automated 777-3) message] The sy stem which generated this result transmitted reference range : 150 - 328 10*3/ ?L. The reference r maggi was not used to interpret this result as normal/abnormal . MPV (test code = 9.6 fL 9.8-13.0 L 08275-7) NRBC/100 WBC (test 0.0 See_Comment [Automat ed code = 5195652672) message] The system which generated this result transmitted reference range : 0.0 - 10.0 /100 WBCs. The refer ence range was not u sed to interpret th is result as normal/abnormal . NRBC x10^3 (test code See_Comment [Auto mated = 5772276415) message] The s ystem which generated this result transmitted reference range : 10*3/?L. The reference range was not used to interpret this result as normal/abnormal . GRAN MAT (NEUT) % 60.7 % (test code = 770-8) IMM GRAN % (test code 0.50 % = 2300303364) LYMPH % (test code = 28.2 % 736-9) MONO % (test code = 6.9 % 5905-5) EOS % (test code = 2.5 % 713-8) BASO % (test code = 1.2 % 706-2) GRAN MAT x10^3(ANC) 3.93 10*3/uL 1.99-6.95 (test code = 4057845852) IMM GRAN x10^3 (test 0.03 10*3/uL 0.00-0.06 code = 7412017399) LYMPH x10^3 (test code 1.83 10*3/uL 1.09-3.23 = 731-0) MONO x10^3 (test code 0.45 10*3/uL 0.36-1.02 = 742-7) EOS x10^3 (test code = 0.16 10*3/uL 0.06-0.53 711-2) BASO x10^3 (test code 0.08 10*3/uL 0.01-0.09 = 704-7) Lab Interpretation Abnormal (test code = 94807-4) [facility] [id number] 16:22:00 Test Item Value Reference Range Interpretation Comments POC glucose (test code = 245 mg/dL 65-100 H Ope rator Name: Marilin [id number]) GarzaDevice ID: [id number] Lab Interpretation (test Abnormal code = 95918-6) [facility]2023-03-15 16:22:00 Test Item Value Reference Range Interpretation Comments POC glucose (test code = 245 mg/dL 65-100 H Ope rator Name: Marilin 65686-1) GarzaDevice ID: [id number] Lab Interpretation (test Abnormal code = 83953-0) [facility]2023-03-15 16:22:00 Test Item Value Reference Range Interpretation Comments POC glucose (test code = 245 mg/dL 65-100 H Ope rator Name: Marilin 75029-4) GarzaDevice ID: [id number] Lab Interpretation (test Abnormal code = 49555-6) [facility]2023-03-15 16:22:00 Test Item Value Reference Range Interpretation Comments POC glucose (test code = 245 mg/dL 65-100 H Ope rator Name: Marilin 66015-3) GarzaDevice ID: [id number] Lab Interpretation (test Abnormal code = 26734-1) [facility]2023-03-15 16:22:00 Test Item Value Reference Range Interpretation Comments POC glucose (test code = 245 mg/dL 65-100 H Ope rator Name: Marilin 24621-2) GarzaDevice ID: [id number] Lab Interpretation (test Abnormal code = 09884-2) [facility]2023-03-15 16:22:00 Test Item Value Reference Range Interpretation Comments POC glucose (test code = 245 mg/dL 65-100 H Ope rator Name: Marilin 31127-2) GarzaDevice ID: [id number] Lab Interpretation (test Abnormal code = 67814-5) [facility] [id number] 16:22:00 Test Item Value Reference Range Interpretation Comments POC glucose (test code = 245 mg/dL 65-100 H Ope rator Name: Marilin 95477-9) GarzaDevice ID: [id number] Lab Interpretation (test Abnormal code = 19568-6) [facility]2023-03-15 16:22:00 Test Item Value Reference Range Interpretation Comments POC glucose (test code = 245 mg/dL 65-100 H Ope rator Name: Marilin 15452-5) GarzaDevice ID: [id number] Lab Interpretation (test Abnormal code = 20623-2) [facility]2023-03-15 16:22:00 Test Item Value Reference Range Interpretation Comments POC glucose (test code = 245 mg/dL 65-100 H Ope rator Name: Marilin 87038-0) GarzaDevice ID: [id number] Lab Interpretation (test Abnormal code = 96040-3) [facility]2023-03-15 16:22:00 Test Item Value Reference Range Interpretation Comments POC glucose (test code = 245 mg/dL 65-100 H Ope rator Name: Marilin 09920-1) GarzaDevice ID: [id number] Lab Interpretation (test Abnormal code = 51056-7) [facility]2023-03-15 16:22:00 Test Item Value Reference Range Interpretation Comments POC glucose (test code = 245 mg/dL 65-100 H Ope rator Name: Marilin 33899-7) GarzaDevice ID: [id number] Lab Interpretation (test Abnormal code = 45043-0) [facility]2023-03-15 16:22:00 Test Item Value Reference Range Interpretation Comments POC glucose (test code = 245 mg/dL 65-100 H Ope rator Name: Marilin [id number]) GarzaDevice ID: [id number] Lab Interpretation (test Abnormal code = 19731-1) [facility]2023-03-15 16:22:00 Test Item Value Reference Range Interpretation Comments POC glucose (test code = 245 mg/dL 65-100 H Ope rator Name: Marilin [id number]) GarzaDevice ID: [id number] Lab Interpretation (test Abnormal code = 24206-9) [facility] [id number] 16:22:00 Test Item Value Reference Range Interpretation Comments POC glucose (test code = 245 mg/dL 65-100 H Ope rator Name: Marilin [id number]) GarzaDevice ID: [id number] Lab Interpretation (test Abnormal code = 50558-2) [facility] [id number] 19:17:00 Test Item Value Reference Range Interpretation Comments IMP PCR (test NOT DETECTED Specimen Infor mationSpecimen code = Source: [facility] Site: 81689-0) Tissue [id number] 07 OXA-48 PCR NOT DETECTED (test code = 8006) [facility] [id number] 19:17:00 Test Item Value Reference Range Interpretation Comments IMP PCR (test NOT DETECTED Specimen Infor mationSpecimen code = Source: [facility] Site: 66988-2) Tissue [id number] 07 OXA-48 PCR NOT DETECTED (test code = 8006) [facility] [id number] 19:17:00 Test Item Value Reference Range Interpretation Comments IMP PCR (test NOT DETECTED Specimen Infor mationSpecimen code = Source: [facility] Site: 35011-3) Tissue [id number] 07 OXA-48 PCR NOT DETECTED (test code = 8006) [facility] [id number] 19:17:00 Test Item Value Reference Range Interpretation Comments IMP PCR (test NOT DETECTED Specimen Infor mationSpecimen code = Source: [facility] Site: 73787-0) Tissue [id number] 07 OXA-48 PCR NOT DETECTED (test code = 8006) [facility] [id number] 19:17:00 Test Item Value Reference Range Interpretation Comments IMP PCR (test NOT DETECTED Specimen Infor mationSpecimen code = Source: [facility] Site: 15083-0) Tissue [id number] 07 OXA-48 PCR NOT DETECTED (test code = 8006) [facility] [id number] 19:17:00 Test Item Value Reference Range Interpretation Comments IMP PCR (test NOT DETECTED Specimen Infor mationSpecimen code = Source: [facility] Site: 50444-4) Tissue [id number] 07 OXA-48 PCR NOT DETECTED (test code = 8006) [facility] [id number] 19:17:00 Test Item Value Reference Range Interpretation Comments IMP PCR (test NOT DETECTED Specimen Infor mationSpecimen code = Source: [facility] Site: 68704-3) Tissue [id number] 07 OXA-48 PCR NOT DETECTED (test code = 8006) [facility] [id number] 19:17:00 Test Item Value Reference Range Interpretation Comments IMP PCR (test NOT DETECTED Specimen Infor mationSpecimen code = Source: [facility] Site: 97293-6) Tissue [id number] 07 OXA-48 PCR NOT DETECTED (test code = 8006) [facility] [id number] 19:17:00 Test Item Value Reference Range Interpretation Comments IMP PCR (test NOT DETECTED Specimen Infor mationSpecimen code = Source: [facility] Site: 25384-3) Tissue [id number] 07 OXA-48 PCR NOT DETECTED (test code = 8006) [facility] [id number] 19:17:00 Test Item Value Reference Range Interpretation Comments IMP PCR (test NOT DETECTED Specimen Infor mationSpecimen code = Source: [facility] Site: 72614-0) Tissue [id number] 07 OXA-48 PCR NOT DETECTED (test code = 8006) [facility] [id number] 19:17:00 Test Item Value Reference Range Interpretation Comments IMP PCR (test NOT DETECTED Specimen Infor mationSpecimen code = Source: [facility] Site: 58030-7) Tissue [id number] 07 OXA-48 PCR NOT DETECTED (test code = 8006) [facility] [id number] 19:17:00 Test Item Value Reference Range Interpretation Comments IMP PCR (test NOT DETECTED Specimen Infor mationSpecimen code = Source: [facility] Site: [address] [place] [address]) Tissue [id number] 07 OXA-48 PCR NOT DETECTED (test code = 8006) [facility] [id number] 19:17:00 Test Item Value Reference Range Interpretation Comments IMP PCR (test NOT DETECTED Specimen Infor mationSpecimen code = Source: [facility] Site: 68054-3) Tissue [id number] 07 OXA-48 PCR NOT DETECTED (test code = 8006) [facility] [id number] 19:17:00 Test Item Value Reference Range Interpretation Comments IMP PCR (test NOT DETECTED Specimen Infor mationSpecimen code = [facility] 17136-4[facility] Tissue [id number] 07 OXA-48 PCR NOT DETECTED (test code = 8006) [facility] [id number] 13:15:00 Test Item Value Reference Range Interpretation Comments Anaerobic No anaerobic Specimen culture isolate organisms InformationS pecimen (test code = isolated. Source: TissueS pecimen 39459-7) Site: Leg: Left Lower Extremity - Cul ture [facility]2023-03-13 13:15:00 Test Item Value Reference Range Interpretation Comments Anaerobic No anaerobic Specimen culture isolate organisms InformationS pecimen (test code = isolated. Source: TissueS pecimen 89610-2) Site: Leg: Left Lower Extremity - Cul ture [facility]2023-03-13 13:15:00 Test Item Value Reference Range Interpretation Comments Anaerobic No anaerobic Specimen culture isolate organisms InformationS pecimen (test code = isolated. Source: TissueS pecimen 23400-5) Site: Leg: Left Lower Extremity - Cul ture [facility]2023-03-13 13:15:00 Test Item Value Reference Range Interpretation Comments Anaerobic No anaerobic Specimen culture isolate organisms InformationS pecimen (test code = isolated. Source: TissueS pecimen 79093-2) Site: Leg: Left Lower Extremity - Cul ture [facility]2023-03-13 13:15:00 Test Item Value Reference Range Interpretation Comments Anaerobic No anaerobic Specimen culture isolate organisms InformationS pecimen (test code = isolated. Source: TissueS pecimen 48708-6) Site: Leg: Left Lower Extremity - Cul ture [facility]2023-03-13 13:15:00 Test Item Value Reference Range Interpretation Comments Anaerobic No anaerobic Specimen culture isolate organisms InformationS pecimen (test code = isolated. Source: TissueS pecimen 18174-4) Site: Leg: Left Lower Extremity [place] 986033-03-13 13:15:00 Test Item Value Reference Range Interpretation Comments Anaerobic No anaerobic Specimen culture isolate organisms InformationS pecimen (test code = isolated. Source: TissueS pecimen 30810-1) Site: Leg: Left Lower Extremity [place] 986033-03-13 13:15:00 Test Item Value Reference Range Interpretation Comments Anaerobic No anaerobic Specimen culture isolate organisms InformationS pecimen (test code = isolated. Source: TissueS pecimen 95605-1) Site: Leg: Left Lower Extremity [place] 986033-03-13 13:15:00 Test Item Value Reference Range Interpretation Comments Anaerobic No anaerobic Specimen culture isolate organisms InformationS pecimen (test code = isolated. Source: TissueS pecimen 30279-4) Site: Leg: Left Lower Extremity [place] 986033-03-13 13:15:00 Test Item Value Reference Range Interpretation Comments Anaerobic No anaerobic Specimen culture isolate organisms InformationS pecimen (test code = isolated. Source: TissueS pecimen 51807-2) Site: Leg: Left Lower Extremity [place] 986033-03-13 13:15:00 Test Item Value Reference Range Interpretation Comments Anaerobic No anaerobic Specimen culture isolate organisms InformationS pecimen (test code = isolated. Source: TissueS pecimen 38047-2) Site: Leg: Left Lower Extremity [place] 986033-03-13 13:15:00 Test Item Value Reference Range Interpretation Comments Anaerobic No anaerobic Specimen culture isolate organisms InformationS pecimen (test code = isolated. Source: TissueS pecimen 89296-0) Site: Leg: Left Lower Extremity [place] 986033-03-13 13:15:00 Test Item Value Reference Range Interpretation Comments Anaerobic No anaerobic Specimen culture isolate organisms InformationS pecimen (test code = isolated. Source: TissueS pecimen 60608-4) Site: Leg: [facility] Lower [facility] [id number] 13:15:00 Test Item Value Reference Range Interpretation Comments Anaerobic No anaerobic Specimen culture isolate organisms InformationS nichol (test code = isolated. Source: [facility] 80508-5[facility] Site: Leg: [facility] Lower [facility] [id number] 14:49:00 Test Item Value Reference Range Interpretation Comments AFB stain No acid fast Specimen (test code = bacilli (AFB) InformationSpe cimen 676-7) seen. Source: [facility] Site: Leg: Left Lower Extremity - [facility] [id number] 14:49:00 Test Item Value Reference Range Interpretation Comments AFB stain No acid fast Specimen (test code = bacilli (AFB) InformationSpe cimen 676-7) seen. Source: [facility] Site: Leg: Left Lower Extremity - [facility] [id number] 14:49:00 Test Item Value Reference Range Interpretation Comments AFB stain No acid fast Specimen (test code = bacilli (AFB) InformationSpe cimen 676-7) seen. Source: [facility] Site: Leg: [facility] Lower [facility] [id number] 14:49:00 Test Item Value Reference Range Interpretation Comments AFB stain No acid fast Specimen (test code = bacilli (AFB) InformationSpe cimen 676-7) seen. Source: [facility] Site: Leg: Left Lower Extremity - [facility] [id number] 14:49:00 Test Item Value Reference Range Interpretation Comments AFB stain No acid fast Specimen (test code = bacilli (AFB) InformationSpe cimen 676-7) seen. Source: [facility] Site: Leg: Left Lower Extremity - [facility] [id number] 14:49:00 Test Item Value Reference Range Interpretation Comments AFB stain No acid fast Specimen (test code = bacilli (AFB) InformationSpe cimen 676-7) seen. Source: [facility] Site: Leg: Left Lower Extremity - [facility] [id number] 14:49:00 Test Item Value Reference Range Interpretation Comments AFB stain No acid fast Specimen (test code = bacilli (AFB) InformationSpe cimen 676-7) seen. Source: [facility] Site: Leg: Left Lower Extremity - [facility] [id number] 14:49:00 Test Item Value Reference Range Interpretation Comments AFB stain No acid fast Specimen (test code = bacilli (AFB) InformationSpe cimen 676-7) seen. Source: [facility] Site: Leg: Left Lower Extremity - [facility] [id number] 14:49:00 Test Item Value Reference Range Interpretation Comments AFB stain No acid fast Specimen (test code = bacilli (AFB) InformationSpe cimen 676-7) seen. Source: [facility] Site: Leg: Left Lower Extremity - [facility] [id number] 14:49:00 Test Item Value Reference Range Interpretation Comments AFB stain No acid fast Specimen (test code = bacilli (AFB) InformationSpe cimen 676-7) seen. Source: [facility] Site: Leg: Left Lower Extremity - [facility] [id number] 14:49:00 Test Item Value Reference Range Interpretation Comments AFB stain No acid fast Specimen (test code = bacilli (AFB) InformationSpe cimen 676-7) seen. Source: [facility] Site: Leg: Left Lower Extremity - [facility] [id number] 14:49:00 Test Item Value Reference Range Interpretation Comments AFB stain No acid fast Specimen (test code = bacilli (AFB) InformationSpe cimen 676-7) seen. Source: [facility] Site: Leg: Left Lower Extremity - [facility] [id number] 14:49:00 Test Item Value Reference Range Interpretation Comments AFB stain No acid fast Specimen (test code = bacilli (AFB) InformationSpe cimen 676-7) seen. Source: [facility] Site: Leg: Left Lower Extremity - [facility] [id number] 14:49:00 Test Item Value Reference Range Interpretation Comments AFB stain No acid fast Specimen (test code = bacilli (AFB) Spe cimen 676-7) seen. [facility]: [facility] Site: Leg: Left Lower Extremity - Cul ture [facility] [id number] 18:08:00 Test Item Value Reference Range Interpretation Comments Fungus smear No fungi Specimen (test code = observed. InformationSpec imen Source: 1443) TissueSpecime Site: Leg: Left Lower Extr emity - Culture [facility] [id number] 18:08:00 Test Item Value Reference Range Interpretation Comments Fungus smear No fungi Specimen (test code = observed. InformationSpec imen Source: 1443) TissueSpecime Site: Leg: Left Lower Extr emity - Culture [facility] [id number] 18:08:00 Test Item Value Reference Range Interpretation Comments Fungus smear No fungi Specimen (test code = observed. InformationSpec imen Source: 1443) [facility] Site: Leg: Left Lower Extr emity - Culture [facility] [id number] 18:08:00 Test Item Value Reference Range Interpretation Comments Fungus smear No fungi Specimen (test code = observed. InformationSpec imen Source: 1443) [facility] Site: Leg: Left Lower Extr emity - Culture [facility] [id number] 18:08:00 Test Item Value Reference Range Interpretation Comments Fungus smear No fungi Specimen (test code = observed. InformationSpec imen Source: 1443) [facility] Site: Leg: Left Lower Extr emity - Culture [facility] [id number] 18:08:00 Test Item Value Reference Range Interpretation Comments Fungus smear No fungi Specimen (test code = observed. InformationSpec imen Source: 1443) TissueSpecime Site: Leg: Left Lower Extr emity - Culture [facility] [id number] 18:08:00 Test Item Value Reference Range Interpretation Comments Fungus smear No fungi Specimen (test code = observed. InformationSpec imen Source: 1443) TissueSpecime Site: Leg: Left Lower Extr emity - Culture [facility] [id number] 18:08:00 Test Item Value Reference Range Interpretation Comments Fungus smear No fungi Specimen (test code = observed. InformationSpec imen Source: 1443) TissueSpecimen Site: Leg: Left Lower Extr emity - Culture [facility] [id number] 18:08:00 Test Item Value Reference Range Interpretation Comments Fungus smear No fungi Specimen (test code = observed. [employer] Source: 1443) [facility] Site: Leg: Left Lower Extr emity - Culture [facility] [id number] 18:08:00 Test Item Value Reference Range Interpretation Comments Fungus smear No fungi Specimen (test code = observed. [employer] Source: 1443) [facility] Site: Leg: Left Lower Extr emity - Culture [facility] [id number] 18:08:00 Test Item Value Reference Range Interpretation Comments Fungus smear No fungi Specimen (test code = observed. [employer] Source: 1443) [facility] Site: Leg: Left Lower Extr emity - Culture [facility] [id number] 18:08:00 Test Item Value Reference Range Interpretation Comments Fungus smear No fungi Specimen (test code = observed. [employer] Source: 1443) [facility] Site: Leg: Left Lower Extr emity - Culture [facility] [id number] 18:08:00 Test Item Value Reference Range Interpretation Comments Fungus smear No fungi Specimen (test code = observed. [employer] Source: 1443) [facility] Site: Leg: Left Lower Extr emity - Culture [facility] [id number] 18:08:00 Test Item Value Reference Range Interpretation Comments Fungus smear No fungi Specimen (test code = observed. [employer] Source: 1443) [facility] Site: Leg: Left Lower Extr emity - Culture [facility] Hospital[facility] [id number] 17:14:00 Test Item Value Reference Range Interpretation Comments Gram stain Few Gram Specimen isolate (test negative rods InformationSp ecimen code = 1469) Source: [facility] Site: Leg: Left Lower Extremity - Cul ture [facility] Hospital[facility] [id number] 17:14:00 Test Item Value Reference Range Interpretation Comments Gram stain Few Gram Specimen isolate (test negative rods InformationSp ecimen code = 1469) Source: [facility] Site: Leg: Left Lower Extremity - Cul ture [facility] [id number] 17:14:00 Test Item Value Reference Range Interpretation Comments Gram stain Few Gram Specimen isolate (test negative rods InformationSp ecimen code = 1469) Source: [facility] Site: Leg: Left Lower [facility]2023-03-09 17:14:00 Test Item Value Reference Range Interpretation Comments Gram stain Few Gram Specimen isolate (test negative rods InformationSp ecimen code = 1469) Source: [facility] Site: Leg: Left Lower Extremity [facility]2023-03-09 17:14:00 Test Item Value Reference Range Interpretation Comments Gram stain Few Gram Specimen isolate (test negative rods InformationSp ecimen code = 1469) Source: [facility] Site: Leg: Left Lower [facility]2023-03-09 17:14:00 Test Item Value Reference Range Interpretation Comments Gram stain Few Gram Specimen isolate (test negative rods InformationSp ecimen code = 1469) Source: [facility] Site: Leg: Left Lower Extremity [facility]2023-03-09 17:14:00 Test Item Value Reference Range Interpretation Comments Gram stain Few Gram Specimen isolate (test negative rods InformationSp ecimen code = 1469) Source: [facility] Site: Leg: Left Lower Extremity [facility]2023-03-09 17:14:00 Test Item Value Reference Range Interpretation Comments Gram stain Few Gram Specimen isolate (test negative rods InformationSp ecimen code = 1469) Source: [facility] Site: Leg: Left Lower Extremity [facility]2023-03-09 17:14:00 Test Item Value Reference Range Interpretation Comments Gram stain Few Gram Specimen isolate (test negative rods InformationSp ecimen code = 1469) Source: [facility] Site: Leg: Left Lower [facility]2023-03-09 17:14:00 Test Item Value Reference Range Interpretation Comments Gram stain Few Gram Specimen isolate (test negative rods InformationSp ecimen code = 1469) Source: [facility] Site: Leg: Left Lower Extremity [facility]2023-03-09 17:14:00 Test Item Value Reference Range Interpretation Comments Gram stain Few Gram Specimen isolate (test negative rods InformationSp ecimen code = 1469) Source: TissueS pecimen Site: Leg: Left Lower Extremity - [facility] [id number] 17:14:00 Test Item Value Reference Range Interpretation Comments Gram stain Few Gram Specimen isolate (test negative rods InformationSp ecimen code = 1469) Source: TissueS pecimen Site: Leg: Left Lower Extremity - Cul [facility] [id number] 17:14:00 Test Item Value Reference Range Interpretation Comments Gram stain Few Gram Specimen isolate (test negative rods InformationSp ecimen code = 1469) Source: TissueS pecimen Site: Leg: Left Lower Extremity - Cul [facility] [id number] 17:14:00 Test Item Value Reference Range Interpretation Comments Gram stain Few Gram Specimen isolate (test negative rods InformationSp ecimen code = 1469) [facility] Site: Leg: [facility] Lower [facility]remity [facility] [id number] 22:46:05 Test Item Value Reference Range Interpretation Comments Case number (test code = [id number]) Surgical pathology See link below for report (test code = PDF Lab Report 2255) Result status (test code This is Final Report = [id number]) for [address] pathology [id number] 22:46:05 Test Item Value Reference Range Interpretation Comments Case number (test code = [id number]) Surgical pathology See link below for report (test code = PDF Lab Report 2255) Result status (test code This is Final Report = [id number]) for [address] pathology [id number] 22:46:05 Test Item Value Reference Range Interpretation Comments Case number (test code = [id number]) Surgical pathology See link below for report (test code = PDF Lab Report 2255) Result status (test code This is Final Report = [id number]) for [address] pathology [id number] 22:46:05 Test Item Value Reference Range Interpretation Comments Case number (test code = [id number]) Surgical pathology See link below for report (test code = PDF Lab Report 2255) Result status (test code This is Final Report = [id number]) for [address] pathology [id number] 22:46:05 Test Item Value Reference Range Interpretation Comments Case number (test code = [id number]) Surgical pathology See link below for report (test code = PDF Lab Report 2255) Result status (test code This is Final Report = [id number]) for [address] pathology [id number] 22:46:05 Test Item Value Reference Range Interpretation Comments Case number (test code = [id number]) Surgical pathology See link below for report (test code = PDF Lab Report 2255) Result status (test code This is Final Report = [id number]) for [address] pathology [id number] 22:46:05 Test Item Value Reference Range Interpretation Comments Case number (test code = [id number]) Surgical pathology See link below for report (test code = PDF Lab Report 2255) Result status (test code This is Final Report = [id number]) for [address] pathology [id number] 22:46:05 Test Item Value Reference Range Interpretation Comments Case number (test code = [id number]) Surgical pathology See link below for report (test code = PDF Lab Report 2255) Result status (test code This is Final Report = [id number]) for [address] pathology [id number] 22:46:05 Test Item Value Reference Range Interpretation Comments Case number (test code = [id number]) Surgical pathology See link below for report (test code = PDF Lab Report 2255) Result status (test code This is Final Report = [id number]) for [address] pathology [id number] 22:46:05 Test Item Value Reference Range Interpretation Comments Case number (test code = [id number]) Surgical pathology See link below for report (test code = PDF Lab Report 2255) Result status (test code This is Final Report = [id number]) for [address] pathology [id number] 22:46:05 Test Item Value Reference Range Interpretation Comments Case number (test code = [id number]) Surgical pathology See link below for report (test code = PDF Lab Report 2255) Result status (test code This is Final Report = [id number]) for [id number] pathology [id number] 22:46:05 Test Item Value Reference Range Interpretation Comments Case number (test code = [id number]) Surgical pathology See link below for report (test code = PDF Lab Report 2255) Result status (test code This is Final Report = [id number]) for [address] pathology [id number] 22:46:05 Test Item Value Reference Range Interpretation Comments Case number (test code = [id number] 9290282) Surgical pathology See link below for report (test code = PDF Lab Report 2255) Result status (test code This is Final Report = [id number]) for [address] pathology [id number] 22:46:05 Test Item Value Reference Range Interpretation Comments Case number (test code = [id number]) Surgical pathology See link below for report (test code = PDF Lab Report 2255) Result status (test code This is Final Report = [id number]) [address] [facility] Complete, (w Contrast, Strain and 3D if needed)2022-05-10 21:23:23 Test Item Value Reference Interpretation Comments Range Ao Root Diameter 3.34 cm (test code = 4629051483) AoV Area, Vmax (test 3.02 cm2 >=1.5 [Autom ated code = 4063177915) message] The system which generated this result transmitted reference range : >=1.5. The reference range was not used to interpret this result as normal/abnormal . AoV Area, VTI (test 3.07 cm2 code = 2712170326) AoV Mean PG (test 4.26 mmHg code = 1483278659) AoV Peak PG (test 6.38 mmHg code = 5252159110) AoV Vmax (test code 1.42 m/s = 6552101222) AoV VTI (test code = 0.26 m 2767106691) BSA Rashid (test code 2.11 m2 = 8490780507) BSA (test code = 2.02 m2 7478113275) IVS,d (test code = 0.84 cm 0.6-7 8175821501) IVS/LVPW,2D (test 0.98 code = 1228185700) Left Atrium 3.49 cm Dimension Anterior (test code = 4472699243) LV,d (test code = 4.74 cm 0396140617) LV EF,2D (test code 64.34 % = 8198389302) LV,s (test code = 3.36 cm 7875610298) LVOT area (test code 3.53 cm2 = 6310770996) LVOT Diam,S (test 2.12 cm code = 5163707814) LVOT Vmax (test code 1.13 m/s = 3961075412) LVOT VTI (test code 0.21 m = 6412853021) LVPWD,d (test code = 0.85 cm 0.60-1.19 1117617884) MV E A ratio (test 0.86 code = 0176288806) AoV area i VTI BSA 1.52 cm2/m2 >=0.85 [Automat ed [place] (test code = message] The 1453034421) system which generated this result transmitted reference range : >=0.85. The reference range was not used to interpret this result as normal/abnormal . BMI (test code = 31.32 kg/m2 4407901683) E wave decelartion 89.56 See_Comment A [Automat ed time (test code = message] T he 9291530541) system which generated this result transmitted reference range : 200 msec. The reference range was not used to interpret this result as normal/abnormal . MV Peak A Sander (test 0.88 m/s code = 9439467608) MV valve area p 1/2 8.47 cm2 method (test code = 1404576751) MV Peak E Sander (test 0.75 m/s code = 2778684720) MV stenosis pressure 25.97 ms 1/2 time (test code = 6634902243) LVOT stroke volume 0.74 ml (test code = 2314615885) AV LVOT peak 4.69 mmHg gradient (test code = 1897942597) Ao Root Diameter 3.34 cm (test code = 1809870684) MV mean gradient 1.92 mmHg (test code = 6622420937) LV SYS VOL (test 46.16 ml 21-61 code = 4564821830) LV ANDERSON VOL (test 104.46 ml 62-150 code = 0158359103) LA area s A4C (test 17.60 cm2 code = 4821583938) LV SI Teich 2D (test 28.83 ml/m2 code = 9545017633) LV SV Teich 2D (test 58.30 ml code = 1716991078) LV Vol s Teich PSAX 46.16 ml (test code = 8719863203) LVOT CI (test code = 3.53 l/min/m2 8939126698) LVOT CO (test code = 7.14 l/min 5779362708) LVOT HR for LVOT CO 98.89 bpm (test code = 4898468082) LVOT SI (test code = 35.72 ml/m2 7481163856) MR peak grad (test 3.00 mmHg code = 7825465189) MV Vmax (test code = 0.87 m 6317403017) MV VTI Tips (test 0.14 m code = 9770740711) BSA Haycock (test 2.10 m2 code = 8455039230) AoV Vmn (test code = 0.97 m/s 2468173062) IVS s 2D (test code 1.17 cm = 4145730127) LV FS Teich 2D (test 29.09 code = 2006147803) MV AE ratio (test 1.17 code = 6920711643) LV FS Cube 2D (test 29.09 code = 2115228631) LVOT Vmn (test code 0.75 = 7306689342) Pt Size (test code = 170.18 8872587562) Pt Wt (test code = 90.72 0577653873) Aov area Vmn (test 3.05 cm2 code = 1339846700) LVOT mean grad (test 2.57 mmHg code = 7442753404) 85 of MPHR (test 140.25 code = 9747976004) AoV area I VMN bsa 1.51 cm2/m2 (test code = 1613008190) Calc MPHR (test code 165.01 bpm = 5193473186) IVS pct thck PLAX 39.76 % (test code = 6378361128) LV SI Cube 2D (test 33.91 ml/m2 code = 2191273601) LV SV Cube 2D (test 68.57 ml code = 2361451808) LV vol d cube 2D 106.56 ml (test code = 6051604103) LV vol s cube 2D 38.00 ml (test code = 2573831222) LVPW pct thck PLAX 35.24 % (test code = 0702055898) LVPW s PLAX (test 1.16 cm code = 4605943551) MV Decel slope (test 8.38 m/s2 code = 1556555492) Pred Exer Dur R1 9.48 (test code = 3177628337) Pred METS R1 (test 9.75 code = 3075485256) LA Vol MOD A4C (test 46.56 ml code = 9505686843) Velocity Ratio 0.80 m/s (V1/V2) (test code = 4689) EF (test code = 56 % 3378776110) E/A ratio (test code 0.85 = 8401487698) LVOT VTI (CM) (test 21.00 cm code = 1401758132) MOE (test code = MOE) Left Ventricle: [...] normal. Lab Interpretation Abnormal (test code = 83002-6) Ao Root Diameter 3.34 cm (test code = 7505746397) AoV Area, Vmax (test 3.02 cm2 >=1.5 code = 6785056126) AoV Area, VTI (test 3.07 cm2 code = 9135104738) AoV Mean PG (test 4.26 mmHg code = 3461417284) AoV Peak PG (test 6.38 mmHg code = 1163465218) AoV Vmax (test code 1.42 m/s = 8315468795) AoV VTI (test code = 0.26 m 7772376308) BSA Rashid (test code 2.11 m2 = 4695137534) BSA (test code = 2.02 m2 8783457756) IVS,d (test code = 0.84 cm 0.6-1 0339904314) IVS/LVPW,2D (test 0.98 code = 4862016562) Left Atrium 3.49 cm Dimension Anterior (test code = 3687119409) LV,d (test code = 4.74 cm 0903114476) LV EF,2D (test code 64.34 % = 1827795210) LV,s (test code = 3.36 cm 9577198216) LVOT area (test code 3.53 cm2 = 3548678618) LVOT Diam,S (test 2.12 cm code = 4394135950) LVOT Vmax (test code 1.13 m/s = 2761421281) LVOT VTI (test code 0.21 m = 8806578778) LVPWD,d (test code = 0.85 cm 0.60-1.19 1025199914) MV E A ratio (test 0.86 code = 8849883804) AoV area i VTI BSA 1.52 cm2/m2 >=0.85 [place] (test code = 1227653944) BMI (test code = 31.32 kg/m2 7944409719) E wave decelartion 89.56 See_Comment A [Automat ed time (test code = message] T he 4237915201) system which generated this result transmitted reference range : 200 msec. The reference range was not used to interpret this result as normal/abnormal . MV Peak A Sander (test 0.88 m/s code = 2118507063) MV valve area p 1/2 8.47 cm2 method (test code = 8991752646) MV Peak E Sander (test 0.75 m/s code = 1319498398) MV stenosis pressure 25.97 ms 1/2 time (test code = 2280289039) LVOT stroke volume 0.74 ml (test code = 8651387641) AV LVOT peak 4.69 mmHg gradient (test code = 1031762163) Ao Root Diameter 3.34 cm (test code = 8623533315) MV mean gradient 1.92 mmHg (test code = 6679832797) LV SYS VOL (test 46.16 ml 21-61 code = 8717764204) LV ANDERSON VOL (test 104.46 ml 62-150 code = 7734806896) LA area s A4C (test 17.60 cm2 code = 3359387438) LV SI Teich 2D (test 28.83 ml/m2 code = 6277796788) LV SV Teich 2D (test 58.30 ml code = 5877489671) LV Vol s Teich PSAX 46.16 ml (test code = 3908461487) LVOT CI (test code = 3.53 l/min/m2 8252585928) LVOT CO (test code = 7.14 l/min 4635278771) LVOT HR for LVOT CO 98.89 bpm (test code = 5029088232) LVOT SI (test code = 35.72 ml/m2 0552340397) MR peak grad (test 3.00 mmHg code = 1371804205) MV Vmax (test code = 0.87 m 2580538103) MV VTI Tips (test 0.14 m code = 0070349781) BSA Haycock (test 2.10 m2 code = 4404077364) AoV Vmn (test code = 0.97 m/s 1495550216) IVS s 2D (test code 1.17 cm = 4661828161) LV FS Teich 2D (test 29.09 code = 2226136676) MV AE ratio (test 1.17 code = 6055595528) LV FS Cube 2D (test 29.09 code = 8948210884) LVOT Vmn (test code 0.75 = 8975712872) Pt Size (test code = 170.18 6655026909) Pt Wt (test code = 90.72 7982831825) Aov area Vmn (test 3.05 cm2 code = 5187828176) LVOT mean grad (test 2.57 mmHg code = 9691161479) 85 of MPHR (test 140.25 code = 6803303803) AoV area I VMN bsa 1.51 cm2/m2 (test code = 5160969774) Calc MPHR (test code 165.01 bpm = 7242850527) IVS pct thck PLAX 39.76 % (test code = 9691552602) LV SI Cube 2D (test 33.91 ml/m2 code = 7706716533) LV SV Cube 2D (test 68.57 ml code = 5021342366) LV vol d cube 2D 106.56 ml (test code = 6283386247) LV vol s cube 2D 38.00 ml (test code = 3012017279) LVPW pct thck PLAX 35.24 % (test code = 9301411784) LVPW s PLAX (test 1.16 cm code = 1642797507) MV Decel slope (test 8.38 m/s2 code = 9259819946) Pred Exer Dur R1 9.48 (test code = 8553355060) Pred METS R1 (test 9.75 code = 1042358678) LA Vol MOD A4C (test 46.56 ml code = 3808321015) Velocity Ratio 0.80 m/s (V1/V2) (test code = 4689) EF (test code = 56 % 8438287751) E/A ratio (test code 0.85 = 2846725964) LVOT VTI (CM) (test 21.00 cm code = 0492722234) MOE (test code = MOE) Left Ventricle: [...] 1.00The left ventricular wall motion is normal. [facility] (w Contrast, Strain and 3D if needed)2022-05-10 21:23:23 Test Item Value Reference Interpretation Comments Range Ao Root Diameter 3.34 cm (test code = 3092651052) AoV Area, Vmax (test 3.02 cm2 >=1.5 code = 6613173140) AoV Area, VTI (test 3.07 cm2 code = 3977757329) AoV Mean PG (test 4.26 mmHg code = 8546780505) AoV Peak PG (test 6.38 mmHg code = 9404605698) AoV Vmax (test code 1.42 m/s = 5418652627) AoV VTI (test code = 0.26 m 0941640039) BSA Rashid (test code 2.11 m2 = 4492590217) BSA (test code = 2.02 m2 3129297184) IVS,d (test code = 0.84 cm 0.6-9 9415496180) IVS/LVPW,2D (test 0.98 code = 1800206202) Left Atrium 3.49 cm Dimension Anterior (test code = 2360208944) LV,d (test code = 4.74 cm 3210589664) LV EF,2D (test code 64.34 % = 5835093374) LV,s (test code = 3.36 cm 2235243874) LVOT area (test code 3.53 cm2 = 7059062644) LVOT Diam,S (test 2.12 cm code = 3590300622) LVOT Vmax (test code 1.13 m/s = 3516937795) LVOT VTI (test code 0.21 m = 5081133987) LVPWD,d (test code = 0.85 cm 0.60-1.19 2206472537) MV E A ratio (test 0.86 code = 2409863934) AoV area i VTI BSA 1.52 cm2/m2 >=0.85 [place] (test code = 8098501216) BMI (test code = 31.32 kg/m2 5021113619) E wave decelartion 89.56 See_Comment A [Automat ed time (test code = message] T he 2615278518) system which generated this result transmitted reference range : 200 msec. The reference range was not used to interpret this result as normal/abnormal . MV Peak A Sander (test 0.88 m/s code = 4865882461) MV valve area p 1/2 8.47 cm2 method (test code = 0512276140) MV Peak E Sander (test 0.75 m/s code = 1865188890) MV stenosis pressure 25.97 ms 1/2 time (test code = 7753019215) LVOT stroke volume 0.74 ml (test code = 6830267078) AV LVOT peak 4.69 mmHg gradient (test code = 3159911815) Ao Root Diameter 3.34 cm (test code = 8626093314) MV mean gradient 1.92 mmHg (test code = 0035083476) LV SYS VOL (test 46.16 ml 21-61 code = 6058725637) LV ANDERSON VOL (test 104.46 ml 62-150 code = 9261411017) LA area s A4C (test 17.60 cm2 code = 8547330308) LV SI Teich 2D (test 28.83 ml/m2 code = 6950028830) LV SV Teich 2D (test 58.30 ml code = 5481407049) LV Vol s Teich PSAX 46.16 ml (test code = 0301798100) LVOT CI (test code = 3.53 l/min/m2 7743689505) LVOT CO (test code = 7.14 l/min 6937129379) LVOT HR for LVOT CO 98.89 bpm (test code = 7813486108) LVOT SI (test code = 35.72 ml/m2 8742236175) MR peak grad (test 3.00 mmHg code = 2277062148) MV Vmax (test code = 0.87 m 2332155100) MV VTI Tips (test 0.14 m code = 0070119669) BSA [place]cock (test 2.10 m2 code = 6693363961) AoV Vmn (test code = 0.97 m/s 2084639412) IVS s 2D (test code 1.17 cm = 1058587461) LV FS Teich 2D (test 29.09 code = 0060098448) MV AE ratio (test 1.17 code = 4847034946) LV FS Cube 2D (test 29.09 code = 5524477282) LVOT Vmn (test code 0.75 = 7448216769) Pt Size (test code = 170.18 2846932396) Pt Wt (test code = 90.72 6843203931) Aov area Vmn (test 3.05 cm2 code = 5797301749) LVOT mean grad (test 2.57 mmHg code = 1793056933) 85 of MPHR (test 140.25 code = 8348333171) AoV area I VMN bsa 1.51 cm2/m2 (test code = 9099805037) Calc MPHR (test code 165.01 bpm = 1939630556) IVS pct thck PLAX 39.76 % (test code = 3436326107) LV SI Cube 2D (test 33.91 ml/m2 code = 2781491163) LV SV Cube 2D (test 68.57 ml code = 0070861581) LV vol d cube 2D 106.56 ml (test code = 7378630156) LV vol s cube 2D 38.00 ml (test code = 8240537297) LVPW pct thck PLAX 35.24 % (test code = 7782736609) LVPW s PLAX (test 1.16 cm code = 2156039244) MV Decel slope (test 8.38 m/s2 code = 9378227038) Pred Exer Dur R1 9.48 (test code = 9803495895) Pred METS R1 (test 9.75 code = 0898440560) LA Vol MOD A4C (test 46.56 ml code = 4700151014) Velocity Ratio 0.80 m/s (V1/V2) (test code = 4689) EF (test code = 56 % 2656995801) E/A ratio (test code 0.85 = 0343752717) LVOT VTI (CM) (test 21.00 cm code = 5905014900) MOE (test code = MOE) Left Ventricle: [...] normal. Lab Interpretation Abnormal (test code = 43320-2) [facility] OodrrvucOMZZ-SdF-3 (COVID-19) RNA [Presence] in Respiratory specimen by LEILANI with probe [id number] 00:11:33 Test Item Value Reference Range Interpretation Comments SARS-CoV-2 (COVID-19) RNA Not detected [Presence] in Respiratory specimen by LEILANI with probe detection (test code = 79645-0) Whether patient is employed in a Unknown healthcare setting (test code = 73341-5) Whether the patient has symptoms Unknown related to condition of interest (test code = 94003-9) Whether the patient was Unknown hospitalized for condition of interest (test code = 05225-9) Whether the patient was admitted Unknown to intensive care unit (ICU) for condition of interest (test code = 44882-2) Whether patient resides in a Unknown congregate care setting (test code = 21902-1) status (test code = Unknown 21843-9) Date and time of symptom onset Unknown (test code = 63085-7) [facility] [id number] 20:52:15 Test Item Value Reference Range Interpretation Comments BSA (test code = 2.03 m2 1208374475) BSA Rashid (test code 2.12 m2 = 4026660461) BSA [place] (test 2.11 m2 code = 9897991427) Pred METS R1 (test 9.76 code = 4848174306) Pred Exer Dur R1 9.48 (test code = 8026494268) Calc MPHR (test 165.06 bpm code = 6689653662) 85 of MPHR (test 140.30 code = 6108598931) Pt Wt (test code = 91.17 6538359424) Pt Size (test code 170.18 = 2349295377) BMI (test code = 31.48 kg/m2 4268784798) MOE (test code = MOE) Left Ventricle: [...] study. The probe was inserted by the director of design. There was no probe insertion difficulty. Anesthesia was given. Refer to anesthesia note. The patient tolerated the procedure well and recovered without any complications.Prior StudyThere were no significant changes noted when compared to the prior TTE study. BSA (test code = 2.03 m2 0913419209) BSA Rashid (test code 2.12 m2 = 2901777265) BSA Haycock (test 2.11 m2 code = 6763149612) Pred METS R1 (test 9.76 code = 4794949814) Pred Exer Dur R1 9.48 (test code = 6029001376) Calc MPHR (test 165.06 bpm code = 8131637635) 85 of MPHR (test 140.30 code = 5423151694) Pt Wt (test code = 91.17 6351938732) Pt Size (test code 170.18 = 4863885166) BMI (test code = 31.48 kg/m2 7590450809) MOE (test code = MOE) Left Ventricle: [...] study. The probe was inserted by the director of design. There was no probe insertion difficulty. Anesthesia was given. Refer to anesthesia note. The patient tolerated the procedure well and recovered without any complications.Prior StudyThere were no significant changes noted when compared to the prior TTE study. [facility] [id number] 20:52:15 Test Item Value Reference Range Interpretation Comments BSA (test code = 2.03 m2 8470562750) BSA Rashid (test code 2.12 m2 = 8641627590) BSA [place]cock (test 2.11 m2 code = 0446790712) Pred METS R1 (test 9.76 code = 9781545910) Pred Exer Dur R1 9.48 (test code = 0844656941) Calc MPHR (test 165.06 bpm code = 8316451431) 85 of MPHR (test 140.30 code = 4085174111) Pt Wt (test code = 91.17 2399819047) Pt Size (test code 170.18 = 5044641636) BMI (test code = 31.48 kg/m2 7591688695) MOE (test code = MOE) Left Ventricle: [...] study. The probe was inserted by the director of design. There was no probe insertion difficulty. Anesthesia was given. Refer to anesthesia note. The patient tolerated the procedure well and recovered without any complications.Prior StudyThere were no significant changes noted when compared to the prior TTE study. [facility] myocardial [id number] 21:20:55 Test Item Value Reference Range Interpretation Comments Target HR (test 166.00 bpm code = 9543043289) Resting HR (test 99 BPM code = 2181234994) Resting BP (test 112/70 mmHg code = 9065938787) O2 sat rest (test 99 % code = 7847854993) Post Peak HR (test 113 bpm code = 2061999214) Percent HR (test 68.07 % code = 0207080382) Post Peak BP (test 112/70 mmHg code = 1655184092) O2 sat peak (test 98 % code = 5540472794) Nuc Stress EF (test 63 % code = 2536123399) Radiology Study observation (narrative) (test code = 85449-8) MOE (test code = MOE) Conclusion: Abnormal [...] The resting administration time was at 10:07 IT BUSINESS ANALYST on 04/17/2022. Resting images obtained at 11:22 [employer] BUSINESS ANALYST. Images performed at stress after an injection of 30.5 mCi. The stress administration time was at 12:20 IT BUSINESS ANALYST on 04/17/2022. Stress images obtained at 13:36 [employer] BUSINESS ANALYST.Nuclear Study QualityA perfusion 1-day rest/stress protocol was [...] Scores: SDS Score: N/A Percentage Abnormal: N/A Target HR (test 166.00 bpm code = 5706772022) Resting HR (test 99 BPM code = 6469685700) Resting BP (test 112/70 mmHg code = 7374393881) O2 sat rest (test 99 % code = 8826169549) Post Peak HR (test 113 bpm code = 8229808596) Percent HR (test 68.07 % code = 2245890737) Post Peak BP (test 112/70 mmHg code = 7352698393) O2 sat peak (test 98 % code = 2622531339) Nuc Stress EF (test 63 % code = 0578234925) MOE (test code = MOE) Conclusion: Abnormal [...] The resting administration time was at 10:07 IT BUSINESS ANALYST on 04/17/2022. Resting images obtained at 11:22 [employer] ANALYST. Images performed at stress after an injection of 30.5 mCi. The stress administration time was at 12:20 IT BUSINESS ANALYST on 04/17/2022. Stress images obtained at 13:36 IT BUSINESS ANALYST.Nuclear Study QualityA perfusion 1-day rest/stress protocol was [...] Percentage Abnormal: N/A [facility] myocardial arwyyotls2057-85-90 21:20:55 Test Item Value Reference Range Interpretation Comments Target HR (test 166.00 bpm code = 7139281086) Resting HR (test 99 BPM code = 8011097229) Resting BP (test 112/70 mmHg code = 8314213786) O2 sat rest (test 99 % code = 5312752111) Post Peak HR (test 113 bpm code = 4947858061) Percent HR (test 68.07 % code = 7650955410) Post Peak BP (test 112/70 mmHg code = 9191823984) O2 sat peak (test 98 % code = 0747596068) Nuc Stress EF (test 63 % code = 6241967481) Radiology Study observation (narrative) (test code = 06357-2) MOE (test code = MOE) Conclusion: Abnormal [...] The resting administration time was at 10:07 IT BUSINESS ANALYST on 04/17/2022. Resting images obtained at 11:22 IT BUSINESS ANALYST. Images performed at stress after an injection of 30.5 mCi. The stress administration time was at 12:20 IT BUSINESS ANALYST on 04/17/2022. Stress images obtained at 13:36 [employer] BUSINESS ANALYST.Nuclear Study QualityA perfusion 1-day rest/stress protocol was [...] Scores: SDS Score: N/A Percentage Abnormal: N/A [facility] stress [id number] 21:15:16 Test Item Value Reference Range Interpretation Comments Resting HR (test code 99 = 9512543665) Resting BP (test code 112&70 = 3070520907) Peak MET Achieved 1.0 (test code = 2585328681) Protocol Name (test LEXISCAN code = 2337461884) Time in Exercise Phase 00:00:53 (test code = 7218399385) Max Systolic BP (test 112 code = 0319444251) Max Diastolic BP (test 70 code = 7282523610) Max Heart Rate (test 113 code = 6541994873) Max Predicted Heart 166 Rate (test code = 1734080328) Target HR Formula (220 - Age)*100% (test code = 8284046723) Test Indication (test code = 1932832069) Arrhy During Ex (test none code = 4317701436) ECG Interp Before EX atrial fibrillation (test code = 5462815121) ECG Interp During Ex NONSPECIFIC (test code = 1969101563) Ex Summary Comment Myoview to follow (test code = 7491706026) Chest Pain Statement none (test code = 7334533575) Overall HR Response to PHARMACOLOGIC STRESS Exercise (test code = 4068759396) Overall BP Response To normal resting BP - Exercise (test code = appropriate response 4667949540) Reason for Termination Protocol completed (test code = 3421441059) Stress Test Impression MYOVIEW TO (test code = FOLLOW--Electronically 2390753994) Signed By Jaspreet Cannon MD ([id number]) on 04/18/2022 3:15:13 PM Resting HR (test code 99 = 8016096859) Resting BP (test code 112&70 = 4417332905) Peak MET Achieved 1.0 (test code = 8842649899) Protocol Name (test LEXISCAN code = 5033413726) Time in Exercise Phase 00:00:53 (test code = 8748043732) Max Systolic BP (test 112 code = 2970540579) Max Diastolic BP (test 70 code = 5953267392) Max Heart Rate (test 113 code = 6612871633) Max Predicted Heart 166 Rate (test code = 3455526511) Target HR Formula (220 - Age)*100% (test code = 6742745750) Test Indication (test code = 8522711352) Arrhy During Ex (test none code = 0323092110) ECG Interp Before EX atrial fibrillation (test code = 8718660502) ECG Interp During Ex NONSPECIFIC (test code = 8016562067) Ex Summary Comment Myoview to follow (test code = 4638541572) Chest Pain Statement none (test code = 9023014783) Overall HR Response to PHARMACOLOGIC STRESS Exercise (test code = 6867410192) Overall BP Response To normal resting BP - Exercise (test code = appropriate response 0277001501) Reason for Termination Protocol completed (test code = 4387554285) Stress Test Impression MYOVIEW TO (test code = FOLLOW--Electronically 7103416345) Signed By Jaspreet Cannon MD ([id number]) on 04/18/2022 3:15:13 PM [facility] stress [id number] 21:15:16 Test Item Value Reference Range Interpretation Comments Resting HR (test code 99 = 5357012167) Resting BP (test code 112&70 = 8543764578) Peak MET Achieved 1.0 (test code = 3816110686) Protocol Name (test LEXISCAN code = 0585055884) Time in Exercise Phase 00:00:53 (test code = 1211898767) Max Systolic BP (test 112 code = 1988985704) Max Diastolic BP (test 70 code = 4490243747) Max Heart Rate (test 113 code = 4467054019) Max Predicted Heart 166 Rate (test code = 9474387293) Target HR Formula (220 - Age)*100% (test code = 0394354662) Test Indication (test code = 5428647236) Arrhy During Ex (test none code = 2899581712) ECG Interp Before EX atrial fibrillation (test code = 9171839723) ECG Interp During Ex NONSPECIFIC (test code = 8702461082) Ex Summary Comment Myoview to follow (test code = 9876955569) Chest Pain Statement none (test code = 4364432260) Overall HR Response to PHARMACOLOGIC STRESS Exercise (test code = 9317070175) Overall BP Response To normal resting BP - Exercise (test code = appropriate response 2814396701) Reason for Termination Protocol completed (test code = 3206465155) Stress Test Impression MYOVIEW TO (test code = FOLLOW--Electronically 2357851199) Signed By Jaspreet Cannon MD ([id number]) on 04/18/2022 3:15:[address] [facility] (w Contrast, Strain and 3D if needed)2022-04-14 21:07:42 Test Item Value Reference Interpretation Comments Range EF (test code = 59 % 52-72 0158092842) LV EF,BP (test code 57.09 % = 4172414024) IVS,d (test code = 1.13 cm 0.6-1 A 6779056018) IVS s 2D (test code 1.32 cm = 3198030589) LVPWD,d (test code 1.09 cm 0.60-1.19 = 9367995342) LVPW s PLAX (test 1.37 cm code = 6778129995) LV,s (test code = 3.04 cm 2468860825) LVOT Diam,S (test 2.09 cm code = 7216867464) LV ANDERSON VOL (test 88.75 ml 62-150 code = 7011309187) LV SYS VOL (test 36.02 ml 21-61 code = 9492030555) LV Vol,d A2C (test 82.11 mL code = 1591491498) LV Vol,s A2C (test 34.60 mL code = 6015666214) LV Vol,d A4C (test 81.73 ml code = 5821480839) LV Vol,s A4C (test 37.26 ml code = 9014136603) MV Peak E Sander (test 0.89 m/s code = 9147132382) MV Peak A Sander (test 0.25 m/s code = 7056478444) E/A ratio (test 3.56 <=0.8 A [Automated code = 4066500185) message] The system which generated this result transmitted reference range: <=0.8. The reference range was not used to interpret this result as normal/abnormal . E wave decelartion 177.02 See_Comment A [Automat ed time (test code = message] T he 8685765225) system which generated this result transmitted reference range: 200 msec. The reference range was not used to interpret this result as normal/abnormal . LV Systolic Volume 17.13 mL/m2 11-31 Index (test code = 8662118986) LV Diastolic Volume 40.65 mL/m2 34-74 Index (test code = 0862760760) LV,d (test code = 4.42 cm 9117951012) IVS/LVPW,2D (test 1.03 code = 0132597872) LV EF,2D (test code 67.66 % = 9900513107) LV FS Cube 2D (test 31.36 code = 8907903347) LV FS Teich 2D 31.36 (test code = 5908131370) LV SI Teich 2D 26.07 ml/m2 (test code = 0022606528) LV SV Teich 2D 52.72 ml (test code = 4909317600) LV Vol s Teich PSAX 36.02 ml (test code = 3479092518) LVOT stroke volume 0.48 cm3 (test code = 3053072082) Left Atrium 3.37 cm <=4 [Automated Dimension Anterior message] The (test code = system which 8419383548) generated this result transmitted reference range: <=4. The reference range was not used to interpret this result as normal/abnormal . LA Vol MOD A4C 44.03 ml (test code = 2244048983) LA area s A4C (test 16.42 cm2 code = 4843783861) LVOT area (test 3.43 cm2 code = 4039186402) LVOT Vmax (test 0.86 m/s code = 4901910525) AoV Mean PG (test 3.31 See_Comment [Automate d code = 2180141001) message] The system which generated this result transmitted reference range: 20 mmHg. The reference range was not used to interpret this result as normal/abnormal . AoV Peak PG (test 4.75 mmHg code = 4795230324) AV LVOT peak 2.89 mmHg gradient (test code = 3031145625) AoV area i VTI BSA 1.33 cm2/m2 >=0.85 [Automat ed [place] (test code = message] The 9983384286) system which generated this result transmitted reference range: >=0.85. The reference range was not used to interpret this result as normal/abnormal . AoV Area, Vmax 2.67 cm2 >=1.5 [Automated (test code = message] The 3694012129) system which generated this result transmitted reference range: >=1.5. The reference range was not used to interpret this result as normal/abnormal . LVOT VTI (CM) (test 14.00 cm code = 8394321976) AoV Vmax (test code 1.11 m/s = 6451167706) AoV Vmn (test code 0.88 m/s = 4063474711) AoV Area, VTI (test 2.69 cm2 code = 9929915379) LVOT CO (test code 5.03 l/min = 5631020301) LVOT CI (test code 2.49 l/min/m2 = 7849587234) LVOT HR for LVOT CO 113.01 bpm (test code = 5017658312) LVOT SI (test code 22.01 ml/m2 = 5224526007) Velocity Ratio 0.77 m/s (V1/V2) (test code = 4689) MV stenosis 41.13 ms <=150 [Automated pressure 1/2 time message] T he (test code = system which 4783348011) generated this result transmitted reference range: <=150. The reference range was not used to interpret this result as normal/abnormal . MV E A ratio (test 6.25 code = 5547222216) MV valve area p 1/2 5.35 cm2 method (test code = 5096734292) E prime lat (test 0.04 code = 7143611515) E prime sept (test 0.03 code = 5132139843) RVOT Vmax (test 0.87 m/s code = 4690178336) PV Pk Grad (test 2.43 See_Comment [Automated code = 3888157782) message] The system which generated this result transmitted reference range: 36 mmHg. The reference range was not used to interpret this result as normal/abnormal . RVOT pk grad (test 3.02 mmHg code = 7946323000) PV VMAX (test code 0.78 m/s <=3 [Automat ed = 4615770823) message] The system which generated this result transmitted reference range: <=3. The reference range was not used to interpret this result as normal/abnormal . Ao Root Diameter 2.77 cm <=3.99 [Automated (test code = message] The 5820328321) system which generated this result transmitted reference range: <=3.99. The reference range was not used to interpret this result as normal/abnormal . Ao Root Diameter 2.77 cm (test code = 6888627198) Ascending aorta 2.95 cm (test code = 7097587620) BSA (test code = 2.02 m2 8006415072) BSA Rashid (test code 2.11 m2 = 1683226829) BSA [place] (test 2.10 m2 code = 1184592418) Pred METS R1 (test 9.76 code = 5243870699) Pred Exer Dur R1 9.49 (test code = 6368176235) MV Decel slope 5.02 m/s2 (test code = 1439049810) LVPW pct thck PLAX 25.29 % (test code = 1415645641) LV vol s cube 2D 27.97 ml (test code = 0788598861) LV vol d cube 2D 86.49 ml (test code = 6666286688) LV SV Cube 2D (test 58.52 ml code = 3994142350) LV SI Cube 2D (test 28.94 ml/m2 code = 5479802882) IVS pct thck PLAX 16.96 % (test code = 8406391597) Calc MPHR (test 165.08 bpm code = 3598671788) AoV area I VMN bsa 1.20 cm2/m2 (test code = 7968943435) 85 of MPHR (test 140.32 code = 0859289473) RVOT VTI (test code 0.14 m = 5981701179) RVOT Vmn (test code 0.59 m/s = 3834162382) RVOT mean grad 1.54 mmHg (test code = 2844914722) LVOT mean grad 1.67 mmHg (test code = 6626743572) Aov area Vmn (test 2.42 cm2 code = 3025723698) Pt Wt (test code = 90.72 8243333171) Pt Size (test code 170.18 = 7282936123) MV AE ratio (test 0.16 code = 4959122093) LVOT Vmn (test code 0.61 = 5156523453) PV Vmn (test code = 17.84 m/s 4010913819) LV Vol Index s 41.57 ml/m2 bpmod BSA [place] (test code = 0561492738) LV SI MOD BP BSA 23.73 ml/m2 [place] (test code = 4539809525) BMI (test code = 31.32 kg/m2 2656772994) LV Vol,s BP (test 36.07 nl code = 6220788040) LV Vol,d BP (test 84.05 ml code = 7046168298) LV SV,BP (test code 47.99 % = 5386672706) LV SV,A4C (test 44.47 % code = 0362234507) LV SV,A2C (test 47.51 % code = 8007320420) [place],s A4C 6.78 cm (test code = 7520684456) [place],s A2C 6.94 cm (test code = 6534394695) [place],d A4C 7.48 cm (test code = 7795571510) [place],d A2C 7.91 cm (test code = 2553636581) LV EF,A4C (test 54.41 % code = 2560371327) LV EF,A2C (test 57.86 % code = 4703299975) AoV VTI (test code 0.16 m = 2266490975) LVOT VTI (test code 0.14 m = 9367130992) MOE (test code = MOE) Left Ventricle: [...] status. Lab Interpretation Abnormal (test code = 24662-7) EF (test code = 59 % 52-72 3756248641) LV EF,BP (test code 57.09 % = 3927258180) IVS,d (test code = 1.13 cm 0.6-1 A 3933479779) IVS s 2D (test code 1.32 cm = 9305270350) LVPWD,d (test code 1.09 cm 0.60-1.19 = 9679178292) LVPW s PLAX (test 1.37 cm code = 7575527065) LV,s (test code = 3.04 cm 4398265208) LVOT Diam,S (test 2.09 cm code = 5023396304) LV ANDERSON VOL (test 88.75 ml 62-150 code = 1749424488) LV SYS VOL (test 36.02 ml 21-61 code = 2915321237) LV Vol,d A2C (test 82.11 mL code = 3743934865) LV Vol,s A2C (test 34.60 mL code = 3698779859) LV Vol,d A4C (test 81.73 ml code = 7921894230) LV Vol,s A4C (test 37.26 ml code = 2441235616) MV Peak E [place]ander (test 0.89 m/s code = 4951228777) MV Peak A [place] (test 0.25 m/s code = 7464720833) E/A ratio (test 3.56 <=0.8 A code = 7699025171) E wave decelartion 177.02 See_Comment A [Automat ed time (test code = message] T he 2781437169) system which generated this result transmitted reference range: 200 msec. The reference range was not used to interpret this result as normal/abnormal . LV Systolic Volume 17.13 mL/m2 11-31 Index (test code = 3003057558) LV Diastolic Volume 40.65 mL/m2 34-74 Index (test code = 9380971026) LV,d (test code = 4.42 cm 8482309795) IVS/LVPW,2D (test 1.03 code = 4727452033) LV EF,2D (test code 67.66 % = 3719298777) LV FS Cube 2D (test 31.36 code = 1750104790) LV FS Teich 2D 31.36 (test code = 8882193743) LV SI Teich 2D 26.07 ml/m2 (test code = 3583957099) LV SV Teich 2D 52.72 ml (test code = 2569123520) LV Vol s Teich PSAX 36.02 ml (test code = 4150052984) LVOT stroke volume 0.48 cm3 (test code = 0308082497) Left Atrium 3.37 cm <=4 Dimension Anterior (test code = 6720890194) LA Vol MOD A4C 44.03 ml (test code = 4971269119) LA area s A4C (test 16.42 cm2 code = 8133473904) LVOT area (test 3.43 cm2 code = 6327920501) LVOT Vmax (test 0.86 m/s code = 1030450738) AoV Mean PG (test 3.31 See_Comment [Automate d code = 3345577130) message] The system which generated this result transmitted reference range: 20 mmHg. The reference range was not used to interpret this result as normal/abnormal . AoV Peak PG (test 4.75 mmHg code = 7723994841) AV LVOT peak 2.89 mmHg gradient (test code = 6959953087) AoV area i VTI BSA 1.33 cm2/m2 >=0.85 [place] (test code = 7542451716) AoV Area, Vmax 2.67 cm2 >=1.5 (test code = 6276519505) LVOT VTI (CM) (test 14.00 cm code = 0305689208) AoV Vmax (test code 1.11 m/s = 5781016942) AoV Vmn (test code 0.88 m/s = 6106154814) AoV Area, VTI (test 2.69 cm2 code = 1226348958) LVOT CO (test code 5.03 l/min = 6464203483) LVOT CI (test code 2.49 l/min/m2 = 6294580322) LVOT HR for LVOT CO 113.01 bpm (test code = 6421102599) LVOT SI (test code 22.01 ml/m2 = 3883853212) Velocity Ratio 0.77 m/s (V1/V2) (test code = 4689) MV stenosis 41.13 ms <=150 pressure 1/2 time (test code = 6300639275) MV E A ratio (test 6.25 code = 3472891190) MV valve area p 1/2 5.35 cm2 method (test code = 7684436089) E prime lat (test 0.04 code = 4487240423) E prime sept (test 0.03 code = 7592541939) RVOT Vmax (test 0.87 m/s code = 4707281831) PV Pk Grad (test 2.43 See_Comment [Automated code = 9453919421) message] The system which generated this result transmitted reference range: 36 mmHg. The reference range was not used to interpret this result as normal/abnormal . RVOT pk grad (test 3.02 mmHg code = 6410207924) PV VMAX (test code 0.78 m/s <=3 = 4694316009) Ao Root Diameter 2.77 cm <=3.99 (test code = 4598465424) Ao Root Diameter 2.77 cm (test code = 4025546285) Ascending aorta 2.95 cm (test code = 0405766292) BSA (test code = 2.02 m2 2775171587) BSA Rashid (test code 2.11 m2 = 1245302305) BSA [place] (test 2.10 m2 code = 2090029485) Pred METS R1 (test 9.76 code = 4174846797) Pred Exer Dur R1 9.49 (test code = 0952566671) MV Decel slope 5.02 m/s2 (test code = 5902520259) LVPW pct thck PLAX 25.29 % (test code = 7307246776) LV vol s cube 2D 27.97 ml (test code = 8491160143) LV vol d cube 2D 86.49 ml (test code = 6727619913) LV SV Cube 2D (test 58.52 ml code = 3091442400) LV SI Cube 2D (test 28.94 ml/m2 code = 8724495465) IVS pct thck PLAX 16.96 % (test code = 3882418875) Calc MPHR (test 165.08 bpm code = 9774030072) AoV area I VMN bsa 1.20 cm2/m2 (test code = 2984267286) 85 of MPHR (test 140.32 code = 1100521130) RVOT VTI (test code 0.14 m = 5366489591) RVOT Vmn (test code 0.59 m/s = 6591007422) RVOT mean grad 1.54 mmHg (test code = 9833549136) LVOT mean grad 1.67 mmHg (test code = 7584251926) Aov area Vmn (test 2.42 cm2 code = 0871472578) Pt Wt (test code = 90.72 1262285104) Pt Size (test code 170.18 = 1887854464) MV AE ratio (test 0.16 code = 9007996231) LVOT Vmn (test code 0.61 = 3540355191) PV Vmn (test code = 17.84 m/s 1531420208) LV Vol Index s 41.57 ml/m2 bpmod BSA [place] (test code = 2729655441) LV SI MOD BP BSA 23.73 ml/m2 [place] (test code = 1497054094) BMI (test code = 31.32 kg/m2 8305731083) LV Vol,s BP (test 36.07 nl code = 8258068363) LV Vol,d BP (test 84.05 ml code = 9670413904) LV SV,BP (test code 47.99 % = 5435062551) LV SV,A4C (test 44.47 % code = 1574484493) LV SV,A2C (test 47.51 % code = 7383501543) [place],s A4C 6.78 cm (test code = 6612107144) [place],s A2C 6.94 cm (test code = 8154959709) [place],d A4C 7.48 cm (test code = 8256279035) [place],d A2C 7.91 cm (test code = 8160894447) LV EF,A4C (test 54.41 % code = 7429558367) LV EF,A2C (test 57.86 % code = 9022229128) AoV VTI (test code 0.16 m = 6484288922) LVOT VTI (test code 0.14 m = 0430889586) MOE (test code = MOE) Left Ventricle: [...] Technical difficulties due to patient's clinical status. [facility] (w Contrast, Strain and 3D if needed)2022-04-14 21:07:42 Test Item Value Reference Interpretation Comments Range EF (test code = 59 % 52-72 0595214546) LV EF,BP (test code 57.09 % = 9121640295) IVS,d (test code = 1.13 cm 0.6-1 A 6970180069) IVS s 2D (test code 1.32 cm = 0294361836) LVPWD,d (test code 1.09 cm 0.60-1.19 = 7220467502) LVPW s PLAX (test 1.37 cm code = 8189458496) LV,s (test code = 3.04 cm 5801342153) LVOT Diam,S (test 2.09 cm code = 5174867323) LV ANDERSON VOL (test 88.75 ml 62-150 code = 9153766731) LV SYS VOL (test 36.02 ml 21-61 code = 9635245287) LV Vol,d A2C (test 82.11 mL code = 0532067952) LV Vol,s A2C (test 34.60 mL code = 9758598521) LV Vol,d A4C (test 81.73 ml code = 5635910156) LV Vol,s A4C (test 37.26 ml code = 3593802394) MV Peak E [place] (test 0.89 m/s code = 4452450106) MV Peak A [place] (test 0.25 m/s code = 6251328257) E/A ratio (test 3.56 <=0.8 A code = 2691709704) E wave decelartion 177.02 See_Comment A [Automat ed time (test code = message] T he 4417054271) system which generated this result transmitted reference range: 200 msec. The reference range was not used to interpret this result as normal/abnormal . LV Systolic Volume 17.13 mL/m2 11-31 Index (test code = 1913798406) LV Diastolic Volume 40.65 mL/m2 34-74 Index (test code = 7705375804) LV,d (test code = 4.42 cm 8020767537) IVS/LVPW,2D (test 1.03 code = 0313565022) LV EF,2D (test code 67.66 % = 4322986130) LV FS Cube 2D (test 31.36 code = 6262916485) LV FS Teich 2D 31.36 (test code = 2086512109) LV SI Teich 2D 26.07 ml/m2 (test code = 7473952504) LV SV Teich 2D 52.72 ml (test code = 4558178180) LV Vol s Teich PSAX 36.02 ml (test code = 2905741854) LVOT stroke volume 0.48 cm3 (test code = 7290397592) Left Atrium 3.37 cm <=4 Dimension Anterior (test code = 1685695448) LA Vol MOD A4C 44.03 ml (test code = 2709883122) LA area s A4C (test 16.42 cm2 code = 7577982652) LVOT area (test 3.43 cm2 code = 3112470092) LVOT Vmax (test 0.86 m/s code = 3834398924) AoV Mean PG (test 3.31 See_Comment [Automate d code = 1758914320) message] The system which generated this result transmitted reference range: 20 mmHg. The reference range was not used to interpret this result as normal/abnormal . AoV Peak PG (test 4.75 mmHg code = 9118972325) AV LVOT peak 2.89 mmHg gradient (test code = 2450215486) AoV area i VTI BSA 1.33 cm2/m2 >=0.85 [place] (test code = 2099850520) AoV Area, Vmax 2.67 cm2 >=1.5 (test code = 5997158481) LVOT VTI (CM) (test 14.00 cm code = 7587323770) AoV Vmax (test code 1.11 m/s = 8394089334) AoV Vmn (test code 0.88 m/s = 6092010981) AoV Area, VTI (test 2.69 cm2 code = 7140469657) LVOT CO (test code 5.03 l/min = 2925868053) LVOT CI (test code 2.49 l/min/m2 = 3599340560) LVOT HR for LVOT CO 113.01 bpm (test code = 8247259890) LVOT SI (test code 22.01 ml/m2 = 4340228822) Velocity Ratio 0.77 m/s (V1/V2) (test code = 4689) MV stenosis 41.13 ms <=150 pressure 1/2 time (test code = 4764674760) MV E A ratio (test 6.25 code = 8869371575) MV valve area p 1/2 5.35 cm2 method (test code = 8843379766) E prime lat (test 0.04 code = 9125993442) E prime sept (test 0.03 code = 2167558793) RVOT Vmax (test 0.87 m/s code = 0040983184) PV Pk Grad (test 2.43 See_Comment [Automated code = 4013062283) message] The system which generated this result transmitted reference range: 36 mmHg. The reference range was not used to interpret this result as normal/abnormal . RVOT pk grad (test 3.02 mmHg code = 9258329788) PV VMAX (test code 0.78 m/s <=3 = 9645737634) Ao Root Diameter 2.77 cm <=3.99 (test code = 2459784050) Ao Root Diameter 2.77 cm (test code = 2807788130) Ascending aorta 2.95 cm (test code = 8366038204) BSA (test code = 2.02 m2 3380084077) BSA Rashid (test code 2.11 m2 = 2046783027) BSA [place] (test 2.10 m2 code = 3257646683) Pred METS R1 (test 9.76 code = 6141008638) Pred Exer Dur R1 9.49 (test code = 5699481003) MV Decel slope 5.02 m/s2 (test code = 4265014648) LVPW pct thck PLAX 25.29 % (test code = 3197831902) LV vol s cube 2D 27.97 ml (test code = 3127547453) LV vol d cube 2D 86.49 ml (test code = 6244913692) LV SV Cube 2D (test 58.52 ml code = 5762284581) LV SI Cube 2D (test 28.94 ml/m2 code = 2321212182) IVS pct thck PLAX 16.96 % (test code = 6166073018) Calc MPHR (test 165.08 bpm code = 8758633198) AoV area I VMN bsa 1.20 cm2/m2 (test code = 8405143000) 85 of MPHR (test 140.32 code = 8782453952) RVOT VTI (test code 0.14 m = 5251410372) RVOT Vmn (test code 0.59 m/s = 7185251913) RVOT mean grad 1.54 mmHg (test code = 3130570310) LVOT mean grad 1.67 mmHg (test code = 1881861053) Aov area Vmn (test 2.42 cm2 code = 3701649590) Pt Wt (test code = 90.72 3603883963) Pt Size (test code 170.18 = 9354961129) MV AE ratio (test 0.16 code = 1799639782) LVOT Vmn (test code 0.61 = 6980635930) PV Vmn (test code = 17.84 m/s 6077836106) LV Vol Index s 41.57 ml/m2 bpmod BSA [place] (test code = 9567422666) LV SI MOD BP BSA 23.73 ml/m2 [place] (test code = 5145067578) BMI (test code = 31.32 kg/m2 2948558087) LV Vol,s BP (test 36.07 nl code = 6614330897) LV Vol,d BP (test 84.05 ml code = 9499674159) LV SV,BP (test code 47.99 % = 5704861783) LV SV,A4C (test 44.47 % code = 2094635218) LV SV,A2C (test 47.51 % code = 4204587258) [place],s A4C 6.78 cm (test code = 7524476801) [place],s A2C 6.94 cm (test code = 9628144066) [place],d A4C 7.48 cm (test code = 8520447014) [place],d A2C 7.91 cm (test code = 3433497603) LV EF,A4C (test 54.41 % code = 6565769774) LV EF,A2C (test 57.86 % code = 8528881595) AoV VTI (test code 0.16 m = 6146036400) LVOT VTI (test code 0.14 m = 5085947868) MOE (test code = MOE) Left Ventricle: [...] status. Lab Interpretation Abnormal (test code = 60763-7) Uatsdin LwtrttezAFKF-CxU-0 (COVID-19) RNA [Presence] in Respiratory specimen by LEILANI with probe [id number] 05:21:05 Test Item Value Reference Range Interpretation Comments SARS-CoV-2 (COVID-19) RNA Not detected [Presence] in Respiratory specimen by LEILANI with probe detection (test code = 91604-9) Whether patient is employed in a Unknown healthcare setting (test code = 27801-6) Whether the patient has symptoms Unknown related to condition of interest (test code = 32260-3) Whether the patient was Unknown hospitalized for condition of interest (test code = 97054-1) Whether the patient was admitted Unknown to intensive care unit (ICU) for condition of interest (test code = 36744-0) Whether patient resides in a Unknown congregate care setting (test code = 12690-5) status (test code = Unknown 33664-7) Date and time of symptom onset Unknown (test code = 18267-5) [facility] ED Preliminary Interpretation - Not an [id number] 21:56:45 Test Item Value Reference Range Interpretation Comments MOE (test code = MOE) Fortino Lozano MD 04/12/2022 9:18 [facility] ED Preliminary Interpretation - Not an OrderPerformed by: Fortino Lozano MDAuthorized by: Fortino Lozano MD ECG reviewed by ED Physician in the absence of a director of design: yes Interpretation: Interpretation: abnormal Rate: ECG rate: 116 ECG rate assessment: tachycardic Rhythm: Rhythm: sinus tachycardia Ectopy: Ectopy: none QRS: QRS axis: Left QRS intervals: NormalConduction: Conduction: abnormal Abnormal conduction: complete RBBB ST segments: ST segments: NormalT waves: T waves: normal Comments: Similar to 10/10 Lab Interpretation Abnormal (test code = 18714-6) [facility] ED Preliminary Interpretation - Not an [id number] 21:56:45 Test Item Value Reference Range Interpretation Comments MOE (test code = MOE) Fortino Lozano MD 04/12/2022 9:18 [facility] ED Preliminary Interpretation - Not an OrderPerformed by: Fortino Lozano MDAuthorized by: Fortino Lozano MD ECG reviewed by ED Physician in the absence of a director of design: yes Interpretation: Interpretation: abnormal Rate: ECG rate: 116 ECG rate assessment: tachycardic Rhythm: Rhythm: sinus tachycardia Ectopy: Ectopy: none QRS: QRS axis: Left QRS intervals: NormalConduction: Conduction: abnormal Abnormal conduction: complete RBBB ST segments: ST segments: NormalT waves: T waves: normal Comments: Similar to 10/10 Lab Interpretation Abnormal (test code = 27589-8) [facility] ED Preliminary Interpretation - Not an [id number] 21:56:45 Test Item Value Reference Range Interpretation Comments MOE (test code = MOE) Fortino Lozano MD 04/12/2022 9:18 [facility] ED Preliminary Interpretation - Not an OrderPerformed by: Fortino Lozano MDAuthorized by: Fortino Lozano MD ECG reviewed by ED Physician in the absence of a director of design: yes Interpretation: Interpretation: abnormal Rate: ECG rate: 116 ECG rate assessment: tachycardic Rhythm: Rhythm: sinus tachycardia Ectopy: Ectopy: none QRS: QRS axis: Left QRS intervals: NormalConduction: Conduction: abnormal Abnormal conduction: complete RBBB ST segments: ST segments: NormalT waves: T waves: normal Comments: Similar to 10/10 Lab Interpretation Abnormal (test code = 04863-1) [facility] ED Preliminary Interpretation - Not an [id number] 21:56:45 Test Item Value Reference Range Interpretation Comments MOE (test code = MOE) Fortino Lozano MD 04/12/2022 9:18 [facility] ED Preliminary Interpretation - Not an OrderPerformed by: Fortino Lozano MDAuthorized by: Fortino Lozano MD ECG reviewed by ED Physician in the absence of a director of design: yes Interpretation: Interpretation: abnormal Rate: ECG rate: 116 ECG rate assessment: tachycardic Rhythm: Rhythm: sinus tachycardia Ectopy: Ectopy: none QRS: QRS axis: Left QRS intervals: NormalConduction: Conduction: abnormal Abnormal conduction: complete RBBB ST segments: ST segments: NormalT waves: T waves: normal Comments: Similar to 10/10 Lab Interpretation Abnormal (test code = 32053-8) [facility] ED Preliminary Interpretation - Not an [id number] 21:56:45 Test Item Value Reference Range Interpretation Comments MOE (test code = MOE) Fortino Lozano MD 04/12/2022 9:18 [facility] ED Preliminary Interpretation - Not an OrderPerformed by: Fortino Lozano MDAuthorized by: Fortino Lozano MD ECG reviewed by ED Physician in the absence of a director of design: yes Interpretation: Interpretation: abnormal Rate: ECG rate: 116 ECG rate assessment: tachycardic Rhythm: Rhythm: sinus tachycardia Ectopy: Ectopy: none QRS: QRS axis: Left QRS intervals: NormalConduction: Conduction: abnormal Abnormal conduction: complete RBBB ST segments: ST segments: NormalT waves: T waves: normal Comments: Similar to 10/10 Lab Interpretation Abnormal (test code = 98786-5) [facility] ED Preliminary Interpretation - Not an [id number] 21:56:45 Test Item Value Reference Range Interpretation Comments MOE (test code = MOE) Fortino Lozano MD 04/12/2022 9:18 [facility] ED Preliminary Interpretation - Not an OrderPerformed by: Fortino Lozano MDAuthorized by: Fortino Lozano MD ECG reviewed by ED Physician in the absence of a director of design: yes Interpretation: Interpretation: abnormal Rate: ECG rate: 116 ECG rate assessment: tachycardic Rhythm: Rhythm: sinus tachycardia Ectopy: Ectopy: none QRS: QRS axis: Left QRS intervals: NormalConduction: Conduction: abnormal Abnormal conduction: complete RBBB ST segments: ST segments: NormalT waves: T waves: normal Comments: Similar to 10/10 Lab Interpretation Abnormal (test code = 66986-7) [facility] ED Preliminary Interpretation - Not an [id number] 21:56:45 Test Item Value Reference Range Interpretation Comments MOE (test code = MOE) Fortino Lozano MD 04/12/2022 9:18 [facility] ED Preliminary Interpretation - Not an OrderPerformed by: Fortino Lozano MDAuthorized by: Fortino Lozano MD ECG reviewed by ED Physician in the absence of a director of design: yes Interpretation: Interpretation: abnormal Rate: ECG rate: 116 ECG rate assessment: tachycardic Rhythm: Rhythm: sinus tachycardia Ectopy: Ectopy: none QRS: QRS axis: Left QRS intervals: NormalConduction: Conduction: abnormal Abnormal conduction: complete RBBB ST segments: ST segments: NormalT waves: T waves: normal Comments: Similar to 10/10 Lab Interpretation Abnormal (test code = 79530-0) [facility] ED Preliminary Interpretation - Not an [id number] 21:56:45 Test Item Value Reference Range Interpretation Comments MOE (test code = MOE) Fortino Lozano MD 04/12/2022 9:18 [facility] ED Preliminary Interpretation - Not an OrderPerformed by: Fortino Lozano MDAuthorized by: Fortino Lozano MD ECG reviewed by ED Physician in the absence of a director of design: yes Interpretation: Interpretation: abnormal Rate: ECG rate: 116 ECG rate assessment: tachycardic Rhythm: Rhythm: sinus tachycardia Ectopy: Ectopy: none QRS: QRS axis: Left QRS intervals: NormalConduction: Conduction: abnormal Abnormal conduction: complete RBBB ST segments: ST segments: NormalT waves: T waves: normal Comments: Similar to 10/10 Lab Interpretation Abnormal (test code = 81199-0) [facility] ED Preliminary Interpretation - Not an [id number] 21:56:45 Test Item Value Reference Range Interpretation Comments MOE (test code = MOE) Fortino Lozano MD 04/12/2022 9:18 [facility] ED Preliminary Interpretation - Not an OrderPerformed by: Fortino Lozano MDAuthorized by: Fortino Lozano MD ECG reviewed by ED Physician in the absence of a director of design: yes Interpretation: Interpretation: abnormal Rate: ECG rate: 116 ECG rate assessment: tachycardic Rhythm: Rhythm: sinus tachycardia Ectopy: Ectopy: none QRS: QRS axis: Left QRS intervals: NormalConduction: Conduction: abnormal Abnormal conduction: complete RBBB ST segments: ST segments: NormalT waves: T waves: normal Comments: Similar to 10/10 Lab Interpretation Abnormal (test code = 75491-8) [facility] ED Preliminary Interpretation - Not an [id number] 21:56:45 Test Item Value Reference Range Interpretation Comments MOE (test code = MOE) Fortino Lozano MD 04/12/2022 9:18 [facility] ED Preliminary Interpretation - Not an OrderPerformed by: Fortino Lozano MDAuthorized by: Fortino Lozano MD ECG reviewed by ED Physician in the absence of a director of design: yes Interpretation: Interpretation: abnormal Rate: ECG rate: 116 ECG rate assessment: tachycardic Rhythm: Rhythm: sinus tachycardia Ectopy: Ectopy: none QRS: QRS axis: Left QRS intervals: NormalConduction: Conduction: abnormal Abnormal conduction: complete RBBB ST segments: ST segments: NormalT waves: T waves: normal Comments: Similar to 10/10 Lab Interpretation Abnormal (test code = 65972-6) [facility] ED Preliminary Interpretation - Not an [id number] 21:56:45 Test Item Value Reference Range Interpretation Comments MOE (test code = MOE) Fortino Lozano MD 04/12/2022 9:18 [facility] ED Preliminary Interpretation - Not an OrderPerformed by: Fortino Lozano MDAuthorized by: Fortino Lozano MD ECG reviewed by ED Physician in the absence of a director of design: yes Interpretation: Interpretation: abnormal Rate: ECG rate: 116 ECG rate assessment: tachycardic Rhythm: Rhythm: sinus tachycardia Ectopy: Ectopy: none QRS: QRS axis: Left QRS intervals: NormalConduction: Conduction: abnormal Abnormal conduction: complete RBBB ST segments: ST segments: NormalT waves: T waves: normal Comments: Similar to 10/10 Lab Interpretation Abnormal (test code = 73620-0) [facility] ED Preliminary Interpretation - Not an [id number] 21:56:45 Test Item Value Reference Range Interpretation Comments MOE (test code = MOE) Fortino Lozano MD 04/12/2022 9:18 [facility] ED Preliminary Interpretation - Not an OrderPerformed by: Fortino Lozano MDAuthorized by: Fortino Lozano MD ECG reviewed by ED Physician in the absence of a director of design: yes Interpretation: Interpretation: abnormal Rate: ECG rate: 116 ECG rate assessment: tachycardic Rhythm: Rhythm: sinus tachycardia Ectopy: Ectopy: none QRS: QRS axis: Left QRS intervals: NormalConduction: Conduction: abnormal Abnormal conduction: complete RBBB ST segments: ST segments: NormalT waves: T waves: normal Comments: Similar to 10/10 Lab Interpretation Abnormal (test code = 51111-0) [facility] ED Preliminary Interpretation - Not an [id number] 21:56:45 Test Item Value Reference Range Interpretation Comments MOE (test code = MOE) Fortino Lozano MD 04/12/2022 9:18 [facility] ED Preliminary Interpretation - Not an OrderPerformed by: Fortino Lozano MDAuthorized by: Fortino Lozano MD ECG reviewed by ED Physician in the absence of a director of design: yes Interpretation: Interpretation: abnormal Rate: ECG rate: 116 ECG rate assessment: tachycardic Rhythm: Rhythm: sinus tachycardia Ectopy: Ectopy: none QRS: QRS axis: Left QRS intervals: NormalConduction: Conduction: abnormal Abnormal conduction: complete RBBB ST segments: ST segments: NormalT waves: T waves: normal Comments: Similar to 10/10 Lab Interpretation Abnormal (test code = 44806-2) [facility] ED Preliminary Interpretation - Not an [id number] 21:56:45 Test Item Value Reference Range Interpretation Comments MOE (test code = MOE) Fortino Lozano MD 04/12/2022 9:18 [facility] ED Preliminary Interpretation - Not an OrderPerformed by: Fortino Lozano MDAuthorized by: Fortino Lozano MD ECG reviewed by ED Physician in the absence of a director of design: yes Interpretation: Interpretation: abnormal Rate: ECG rate: 116 ECG rate assessment: tachycardic Rhythm: Rhythm: sinus tachycardia Ectopy: Ectopy: none QRS: QRS axis: Left QRS intervals: NormalConduction: Conduction: abnormal Abnormal conduction: complete RBBB ST segments: ST segments: NormalT waves: T waves: normal Comments: Similar to 10/10 Lab Interpretation Abnormal (test code = 09154-5) Uatsdin EliocjkaGESL-VaW-2 (COVID-19) RNA [Presence] in Respiratory specimen by LEILANI with probe [id number] 10:09:09 Test Item Value Reference Range Interpretation Comments SARS-CoV-2 (COVID-19) RNA Not detected [Presence] in Respiratory specimen by LEILANI with probe detection (test code = 55036-2) Whether patient is employed in a Unknown healthcare setting (test code = 19503-1) Whether the patient has symptoms Unknown related to condition of interest (test code = 99788-6) Whether the patient was Unknown hospitalized for condition of interest (test code = 47257-5) Whether the patient was admitted Unknown to intensive care unit (ICU) for condition of interest (test code = 10098-2) Whether patient resides in a Unknown congregate care setting (test code = 95266-0) status (test code = Unknown 84759-3) Date and time of symptom onset Unknown (test code = 95286-1) [id number] 08:07:00 Test Item Value Reference Range Interpretation Comments GLUBED (test code = 170 mg/dL 74-106 H Performe d by certified GLUBED) plug making operator at [facility] [id number] 21:00:00 Test Item Value Reference Range Interpretation Comments GLUBED (test code = 185 mg/dL 74-106 H Performe d by certified GLUBED) plug making operator at [facility] [id number] 15:40:00 Test Item Value Reference Range Interpretation Comments GLUBED (test code = 167 mg/dL 74-106 H Performe d by certified GLUBED) plug making operator at [facility] [id number] 11:13:00 Test Item Value Reference Range Interpretation Comments GLUBED (test code = 212 mg/dL 74-106 H Performe d by certified GLUBED) plug making operator at [facility] [id number] 08:09:00 Test Item Value Reference Range Interpretation Comments GLUBED (test code = 91 mg/dL 74-106 N Performe d by certified GLUBED) plug making operator at [facility] [id number] 20:51:00 Test Item Value Reference Range Interpretation Comments GLUBED (test code = 155 mg/dL 74-106 H Performe d by certified GLUBED) plug making operator at [facility] [id number] 15:53:00 Test Item Value Reference Range Interpretation Comments GLUBED (test code = 130 mg/dL 74-106 H Performe d by certified GLUBED) plug making operator at [facility] [id number] 11:15:00 Test Item Value Reference Range Interpretation Comments GLUBED (test code = 195 mg/dL 74-106 H Performe d by certified GLUBED) plug making operator at [facility] [id number] 07:48:00 Test Item Value Reference Range Interpretation Comments GLUBED (test code = 142 mg/dL 74-106 H Performe d by certified GLUBED) plug making operator at [facility] BASIC METABOLIC [id number] 07:09:00 Test Item Value Reference Range Interpretation [...] >3 months. [Automated mess age] The system [employer]Th[employer] generated this result transmitted ref erence range: >=60. Th e reference range was not used to int erpret this result as normal/abnormal . CREATININE (test 0.80 mg/dL 0.7-1.3 N code = CREAT) BUN/CREATININE RATIO 7.6 10-20 L (test code = BUN/CREA) CALCIUM (test code = 8.6 mg/dL 8.5-10.1 N CA) CBC W/AUTO [id number] 06:52:00 Test Item Value Reference Range Interpretation [...] DIFF REQUIRED (test code NO = MDIFF) [id number] 20:15:00 Test Item Value Reference Range Interpretation Comments GLUBED (test code = 227 mg/dL 74-106 H Performe d by certified GLUBED) plug making operator at [facility] [id number] 15:49:00 Test Item Value Reference Range Interpretation Comments GLUBED (test code = 191 mg/dL 74-106 H Performe d by certified GLUBED) plug making operator at [facility] [id number] 10:43:00 Test Item Value Reference Range Interpretation Comments GLUBED (test code = 362 mg/dL 74-106 H Performe d by certified GLUBED) plug making operator at [facility] [id number] 08:01:00 Test Item Value Reference Range Interpretation Comments GLUBED (test code = 203 mg/dL 74-106 H Performe d by certified GLUBED) plug making operator at [facility] BASIC METABOLIC [id number] 02:21:00 Test Item Value Reference Range Interpretation [...] >3 months. [Automated mess age] The system [employer] generated this result transmitted ref erence range: >=60. Th e reference range was not used to int erpret this result as normal/abnormal . CREATININE (test 0.70 mg/dL 0.7-1.3 N code = CREAT) BUN/CREATININE RATIO 11.6 10-20 N (test code = BUN/CREA) CALCIUM (test code = 8.2 mg/dL 8.5-10.1 L CA) CBC W/AUTO [id number] 02:17:00 Test Item Value Reference Range Interpretation [...] = 0.00 K/mm3 0.0-0.1 N NRBC#) VANCOMYCIN [id number] 22:07:00 Test Item Value Reference Range Interpretation Comments VANCOMYCIN TROUGH (test code = 10.5 ug/mL 10-20 N VANCT) [id number] 20:15:00 Test Item Value Reference Range Interpretation Comments GLUBED (test code = 185 mg/dL 74-106 H Performe d by certified GLUBED) plug making operator at [facility] [id number] 16:48:00 Test Item Value Reference Range Interpretation Comments GLUBED (test code = 280 mg/dL 74-106 H Performe d by certified GLUBED) plug making operator at [facility] [id number] 13:00:00 Test Item Value Reference Range Interpretation Comments GLUBED (test code = 226 mg/dL 74-106 H Performe d by certified GLUBED) plug making operator at [facility] [id number] 11:29:00 Test Item Value Reference Range Interpretation Comments GLUBED (test code = 246 mg/dL 74-106 H Performe d by certified GLUBED) plug making operator at [facility] [id number] 10:34:00 Test Item Value Reference Range Interpretation Comments GLUBED (test code = 227 mg/dL 74-106 H Performe d by certified GLUBED) plug making operator at [facility] [id number] 10:34:00 Test Item Value Reference Range Interpretation Comments GLUBED (test code = 256 mg/dL 74-106 H Performe d by certified GLUBED) plug making operator at [facility] [id number] 10:34:00 Test Item Value Reference Range Interpretation Comments GLUBED (test code = 213 mg/dL 74-106 H Performe d by certified GLUBED) plug making operator at [facility] [id number] 03:23:00 Test Item Value Reference Range Interpretation Comments GLYCOSYLATED HEMOGLOBIN 13.1 % HbA1 SAMMY MOOREEdna (HA1C) (test code = DIAGNOSI S: HbA1C [...] 2.6-3.3Borderli ne High 130-159 3.4-4.1 High 160-189 4.1-4. 9Very High >=190 >=4.9========= This LDL result is a direct measurement.=== ====== BASIC METABOLIC [id number] 18:01:00 Test Item Value Reference Range Interpretation [...] >3 months. [Automated mess age] The system [employer] generated this result transmitted ref erence range: >=60. Th e reference range was not used to int erpret this result as normal/abnormal . CREATININE (test 0.80 mg/dL 0.7-1.3 N code = CREAT) BUN/CREATININE RATIO 14.1 10-20 N (test code = BUN/CREA) CALCIUM (test code = 8.3 mg/dL 8.5-10.1 L CA) [id number] 18:01:00 Test Item Value Reference Range Interpretation Comments PHOSPHORUS (test code = PHOS) 2.8 mg/dL 2.5-4.9 N [id number] 18:01:00 Test Item Value Reference Range Interpretation Comments MAGNESIUM (test code = MAG) 1.7 mg/dL 1.8-2.4 L THYROID STIMULATING [id number] 18:01:00 Test Item Value Reference Range Interpretation Comments THYROID STIMULATING 0.667 uIU/mL 0.36-3.74 N TSH REFE RENCE HORMONE (test code = RANGES: EUTHYROID: TSH) 0.35 - 4.3 mIU/ mL HYPO : > 5.5 mI U/mL HYPER : < 0.35 mIU/mL CBC W/AUTO [id number] 18:00:00 Test Item Value Reference Range Interpretation [...] = 0.00 K/mm3 0.0-0.1 N NRBC#) LACTIC [id number] 14:22:00 Test Item Value Reference Range Interpretation Comments LACTIC ACID (test code = LACT) 1.3 mmol/L 0.4-1.9 N - XR TIBIA/FIBULA 2 V [id number] 12:37:00 [facility])Name: HARJINDER COLUNGA : 1965 Sex: M FAX: Jerry Roa MD [phone] [place]: [address]: REG Name: HARJINDER COLUNGA [facility] : 1965 Age/S: 56/M [place] [facility] Unit #: [id number] Loc: [place] [address] Phys: Jerry Roa MD Acct: [id number] Dis Date: Status: REG ER PHONE #: [phone] Exam Date: 12/31/2021 1226 FAX #: [phone] Reason: leg redness EXAMS: CPT CODE: [id number] XR TIBIA/FIBULA 2 [place] LT [address] REASON FOR EXAM: leg redness EXAM ORDER [...] appear edematous. Correlate with physical exam. Location: [facility] ED ElectronicallySigned by Magan Rae MD on 12/31/2021 at 1237 Reported and signed by: Magan Rae MD CC: Jerry Roa MD Technologist: FORTINO SOSA, RT(R) Trnscrd Date/Time/By: 12/31/2021 (3986) : By: [email or web address] Orig Print D/T: S: 12/31/2021 (4318) PAGE 1 Signed Report- XR KNEE 3 V [id number] 12:37:00 [facility]Name: HARJINDER COLUNGA : 1965 Sex: M FAX: Jerry Roa MD [phone] [place]: St: REG Name: HARJINDER COLUNGA [facility] : 1965 Age/S: 56/M [address] [facility] Unit #: [id number] Loc: [place] [address] Phys: Jerry Roa MD Acct: [id number] Dis Date: Status: REG ER PHONE #: [phone] Exam Date: 12/31/2021 1226 FAX #: [phone] Reason: leg redness EXAMS: CPT CODE: [id number] XR KNEE 3 V LT 42293 REASON FOR EXAM: leg redness EXAM ORDER [...] appear edematous. Correlate with physical exam. Location: [facility] ED at 1237 Reported and signed by: Magan Rae MD CC: Jerry Roa MD Technologist: LEIGHANN JETERR) Trnscrd Date/Time/By: 12/31/2021 (7458) : By: [email or web address] Orig Print D/T: S: 12/31/2021 (9508) PAGE 1 Signed ReportBASIC METABOLIC [id number] 12:10:00 Test Item Value Reference Range Interpretation [...] >3 months. [Automated mess age] The system [employer]Th[employer] generated this result transmitted ref erence range: >=60. Th e reference range was not used to int erpret this result as normal/abnormal . CREATININE (test code 1.00 mg/dL 0.7-1.3 N = CREAT) BUN/CREATININE RATIO 10.8 10-20 N (test code = BUN/CREA) CALCIUM (test code = 8.8 mg/dL 8.5-10.1 N CA) HEPATIC FUNCTION [id number] 12:10:00 Test Item Value Reference Range Interpretation [...] due ALKP) to change in reagent. LACTIC [id number] 12:08:00 Test Item Value Reference Range Interpretation Comments LACTIC ACID (test 2.1 mmol/L 0.4-1.9 HH Results ca lled to code = LACT) [id number] by 2IRD 4988 12/31/21 1208Cr itical results verifie d and read back by Nu rse? Y FOR ALL ICU PATIENT EXCLUDING HOLD PLEASE CALL [phone] CBC W/AUTO [id number] 11:58:00 Test Item Value Reference Range Interpretation [...] = 0.00 K/mm3 0.0-0.1 N NRBC#) POC [id number] 16:17:00 Test Item Value Reference Range Interpretation Comments POC glucose (test code 238 mg/dL 65-100 H Opera tor Name: Sherice = 02205-4) FrancoDevice ID : [id number] Lab Interpretation Abnormal (test code = 08732-7) [facility] [id number] 16:17:00 Test Item Value Reference Range Interpretation Comments POC glucose (test code 238 mg/dL 65-100 H Opera tor Name: Sherice = 10599-0) FrancoDevice ID : [id number] Lab Interpretation Abnormal (test code = 45740-1) [facility]2022-08-24 11:12:00 Test Item Value Reference Range Interpretation Comments Urine culture Mixed yadi Specimen isolate (test <=10-3 col/cc InformationSp ecimen code = 25967-1) Source: [facility] Site: [facility]2022-08-24 11:12:00 Test Item Value Reference Range Interpretation Comments Urine culture Mixed yadi Specimen isolate (test <=10-3 col/cc InformationSp ecimen code = 31506-2) Source: [facility] Site: [facility]2022-08-24 11:12:00 Test Item Value Reference Range Interpretation Comments Urine culture Mixed yadi Specimen isolate (test <=10-3 col/cc InformationSp ecimen code = 82956-0) Source: [facility] Site: [facility]2022-08-24 11:12:00 Test Item Value Reference Range Interpretation Comments Urine culture Mixed yadi Specimen isolate (test <=10-3 col/cc InformationSp ecimen code = 14273-2) Source: [facility] Site: [facility]2022-08-24 11:12:00 Test Item Value Reference Range Interpretation Comments Urine culture Mixed yadi Specimen isolate (test <=10-3 col/cc InformationSp ecimen code = 20921-3) Source: [facility] Site: [facility]2022-08-24 11:12:00 Test Item Value Reference Range Interpretation Comments Urine culture Mixed yadi Specimen isolate (test <=10-3 col/cc InformationSp ecimen code = 06586-4) Source: [facility] Site: [facility]2022-08-24 11:12:00 Test Item Value Reference Range Interpretation Comments Urine culture Mixed yadi Specimen isolate (test <=10-3 col/cc InformationSp ecimen code = 97274-5) Source: [facility] Site: [facility]2022-08-24 11:12:00 Test Item Value Reference Range Interpretation Comments Urine culture Mixed yadi Specimen isolate (test <=10-3 col/cc InformationSp ecimen code = 86407-2) [facility] [id number] 11:12:00 Test Item Value Reference Range Interpretation Comments Urine culture Mixed yadi Specimen isolate (test <=10-3 col/cc InformationSp ecimen code = 54110-5) [facility]: [facility] [id number] 11:12:00 Test Item Value Reference Range Interpretation Comments Urine culture Mixed yadi Specimen isolate (test <=10-3 col/cc InformationSp ecimen code = 46429-6) Source: [facility] [id number] 11:12:00 Test Item Value Reference Range Interpretation Comments Urine culture Mixed yadi Specimen isolate (test <=10-3 col/cc InformationSp ecimen code = 86649-5) [facility]: [facility] RNA [Presence] in Respiratory specimen by LEILANI with probe [id number] 06:28:40 Test Item Value Reference Range Interpretation Comments SARS-CoV-2 (COVID-19) RNA Not detected [Presence] in Respiratory specimen by LEILANI with probe detection (test code = 78782-2) Whether patient is employed in a Unknown healthcare setting (test code = 05326-0) Whether the patient has symptoms Unknown related to condition of interest (test code = 52941-4) Whether the patient was Unknown hospitalized for condition of interest (test code = 66256-1) Whether the patient was admitted Unknown to intensive care unit (ICU) for condition of interest (test code = 17398-8) Whether patient resides in a Unknown congregate care setting (test code = 54199-3) status (test code = Unknown 67542-4) Date and time of symptom onset Unknown (test code = 04046-8) [facility] 12 [id number] 16:49:51 Test Item Value Reference Range Interpretation Comments Ventricular rate (test code = 253) Atrial rate (test code = 255) MA interval (test code = 266) QRSD interval [...] for Inferior infarct are no longer present- [facility] 12 [id number] 16:49:51 Test Item Value Reference Range Interpretation Comments Ventricular rate (test code = 253) Atrial rate (test code = 255) MA interval (test code = 266) QRSD interval [...] for Inferior infarct are no longer present- [facility] ED Preliminary Interpretation - Not an [id number] 04:49:00 Test Item Value Reference Range Interpretation Comments MOE (test code = MOE) Norberto Lanier FNP 10/11/2021 11:48 [facility] Preliminary Interpretation - Not an OrderPerformed by: Norberto Lanier FNPAuthorized by: Fahad Anna MD ECG reviewed by ED Physician in the absence of a director of design: yes Interpretation: Interpretation: abnormal Rate: ECG rate: 83 ECG rate assessment: normal Rhythm: Rhythm: sinus rhythm Ectopy: Ectopy: none QRS: QRS axis: Normal QRS intervals: WideConduction: Conduction: abnormal Abnormal conduction: complete RBBB and LAFB ST segments: ST segments: NormalT waves: T waves: non-specific Lab Interpretation Abnormal (test code = 93133-1) [facility] Preliminary Interpretation - Not an [id number] 04:49:00 Test Item Value Reference Range Interpretation Comments MOE (test code = MOE) Norberto Lanier FNP 10/11/2021 11:48 [facility] Preliminary Interpretation - Not an OrderPerformed by: Norberto Lanier FNPAuthorized by: Fahad Anna MD ECG reviewed by ED Physician in the absence of a director of design: yes Interpretation: Interpretation: abnormal Rate: ECG rate: 83 ECG rate assessment: normal Rhythm: Rhythm: sinus rhythm Ectopy: Ectopy: none QRS: QRS axis: Normal QRS intervals: WideConduction: Conduction: abnormal Abnormal conduction: complete RBBB and LAFB ST segments: ST segments: NormalT waves: T waves: non-specific Lab Interpretation Abnormal (test code = 34304-1) [place] [id number] 18:34:00 Test Item Value Reference Range Interpretation Comments GLUBED (test code = 316 mg/dL 74-106 H Performe d by certified GLUBED) plug making operator at [facility] URINALYSIS [id number] 17:45:00 Test Item Value Reference Range Interpretation [...] Urine Source? Clean CatchDRUGS OF ABUSE SCREEN [id number] 17:45:00 Test Item Value Reference Range Interpretation Comments UR MDMA (test code = NEGATIVE NEGATIVE MDMAQLU) URN COCAINE (test code = NEGATIVE NEGATIVE [A utomated message] COCAURN) The system [employer]Th[employer] generated this result transmitted ref erence range: [...] NEGATIVE [A utomated message] OPIATURN) The system [employer] generated this result transmitted ref erence range: [...] [A utomated message] = [place]) The system [employer] generated this result transmitted ref erence range: <300 ng/ mL. The reference r maggi was not used to interpret this result as normal/abnor mal. Urine Source? Clean CatchBASIC METABOLIC [id number] 16:11:00 Test Item Value Reference Range Interpretation [...] >3 months. [Automated mess age] The system [employer] generated this result transmitted ref erence range: >=60. Th e reference range was not used to int erpret this result as normal/abnormal . CREATININE (test code 0.99 mg/dL 0.55-1.3 N = CREAT) BUN/CREATININE RATIO 15.2 10-20 N (test code = BUN/CREA) CALCIUM (test code = 8.1 mg/dL 8.0-10.5 N CA) [id number] 16:11:00 Test Item Value Reference Range Interpretation Comments TROPONIN-HS (test 5.1 pg/mL 0-60 N CAUTION: U nits of the code = TROPI) current test m ethodology (pg/mL)differ f rom the prior test meth odology (ng/mL) by a fa ctorof 1000. [id number] 16:11:00 Test Item Value Reference Range Interpretation [...] CH ARGE TO THE PATIENT. CBC W/O [id number] 15:42:00 Test Item Value Reference Range Interpretation [...] N = MPV) - XR CHEST 1 [id number] 15:42:00 [facility] ([facility])Name: HARJINDER COLUNGA : 1965 Sex: M FAX: Brennan Dupont [phone] [place]: [place] St: PRE Name: HARJINDER COLUNGA [facility] FSED : 1965 Age/S: 56/M [address] [facility] [address] Unit #: [id number] Loc: [facility] [address] Phys: Brennan Dupont MD [place] [address] Acct: [id number] Dis Date: Status: PRE ER PHONE #: Exam Date: 08/06/2021 1541 FAX #: Reason: WEAKNESS EXAMS: CPT CODE: [id number] XR CHEST 1 V 82184 REASON FOR EXAM: WEAKNESS Exam Order Date: [...] unchanged. IMPRESSION: No acute cardiopulmonary process. Location: [facility] ED at 1542 Reported and signed by: Ramu Ramos M.D. CC: Brennan Dupont MD Technologist: Jonathan Herndon RT(R)(CT) Trnscrd Date/Time/By: 08/06/2021 (2600) : By: [email or web address] Orig Print D/T: S: 08/06/2021 (6800) PAGE 1 Signed ReportLone Star Glucose -- Point of Care Meters (95124) 2021-06-29 00:00:00 Test Item Value Reference Range Interpretation Comments BLOOD GLUCOSE-HOME MONITOR (test code = 266 70-110 A 04834-9) [id number] 16:34:00 Test Item Value Reference Range Interpretation Comments TROPONIN-I (test code = TROPI) <0.015 ng/mL 0.00-0.056 N URINALYSIS [id number] 15:41:00 Test Item Value Reference Range Interpretation [...] HPF NONE BACU) Urine Source? Clean CatchURINALYSIS [id number] 15:39:00 Test Item Value Reference Range Interpretation [...] Urine Source? Clean Catch- CT HEAD/BRAIN W/O [id number] 13:23:00 [facility] ([facility])Name: HARJINDER COLUNGA : 1965 Sex: M Name: HARJINDER COLUNGA [facility] FSED : 1965 Age/S: 55 / M [address]: [id number] Loc: [address] Phys: Jerry Roa MD [place], [place] [address] Acct: [id number] Dis Date: Status: REG ER PHONE #: Exam Date: 12/24/2020 1305 FAX #: Reason: dizzy EXAMS: CPT CODE: [id number] CT HEAD/BRAIN W/O CONT 59394 HISTORY: dizzy TECHNIQUE: Noncontrast 2.5 mm axial [...] Signed Report (CONTINUED) Name: HARJINDER COLUNGA [facility] FSED : 1965 Age/S: 55 / M [address] [facility] [address] Unit #: [id number] Loc: [address] Phys: Jerry Roa MD [place], [place] [address] Acct: [id number] Dis Date: Status: REG ER PHONE #: Exam Date: 12/24/2020 1305 FAX #: Reason: dizzy EXAMS: CPT CODE: [id number] CT HEAD/BRAIN W/O CONT 08696 (Continued) CC: Jerry Roa MD Technologist:Vicky Saba RT(R)(CT) CTDI: DLP: Trnscb Date/Time: 12/24/2020 (1323) tDORATOS8Hcmz Print D/T: S: 12/24/2020 (1326) PAGE 2 Signed ReportBASIC METABOLIC [id number] 12:45:00 Test Item Value Reference Range Interpretation [...] >3 months. [Automated mess age] The system ScheduleThing generated this result transmitted ref erence range: >=60. Th e reference range was not used to int erpret this result as normal/abnormal . CREATININE (test 0.77 mg/dL 0.55-1.3 N code = CREAT) BUN/CREATININE RATIO 20.8 10-20 H (test code = BUN/CREA) CALCIUM (test code = 8.1 mg/dL 8.0-10.5 N CA) [id number] 12:45:00 Test Item Value Reference Range Interpretation Comments TROPONIN-I (test code = TROPI) <0.015 ng/mL 0.00-0.056 N CREATINE KINASE (CK)2020-12-24 12:43:00 Test Item Value Reference Range Interpretation Comments CREATINE KINASE (CK) (test code = CK) 38 U/L 39-308 L BASIC METABOLIC [id number] 12:37:00 Test Item Value Reference Range Interpretation [...] >3 months. [Automated mess age] The system [employer]Th[employer] generated this result transmitted ref erence range: >=60. Th e reference range was not used to int erpret this result as normal/abnormal . CREATININE (test 0.77 mg/dL 0.55-1.3 N code = CREAT) BUN/CREATININE RATIO 20.8 10-20 H (test code = BUN/CREA) CALCIUM (test code = 8.1 mg/dL 8.0-10.5 N CA) [id number] 12:37:00 Test Item Value Reference Range Interpretation Comments TROPONIN-I (test code = TROPI) pg/mL 0-45 CBC W/O [id number] 12:33:00 Test Item Value Reference Range Interpretation [...] code 9.3 fL 6.7-11.0 N = MPV) [id number] 09:02:00 Test Item Value Reference Range Interpretation Comments GLUBED (test code = GLUBED) 96 MG/DL 74-106 N [id number] 20:42:00 Test Item Value Reference Range Interpretation Comments GLUBED (test code = GLUBED) 213 MG/DL 74-106 H [id number] 16:51:00 Test Item Value Reference Range Interpretation Comments GLUBED (test code = GLUBED) 209 MG/DL 74-106 H [id number] 15:04:00 Test Item Value Reference Range Interpretation Comments GLUBED (test code = GLUBED) 215 MG/DL 74-106 H [id number] 14:45:00 Test Item Value Reference Range Interpretation Comments ACT-ISTAT (test code = ACTI) 213 SEC 74-125 H [id number] 14:14:00 Test Item Value Reference Range Interpretation Comments ACT-ISTAT (test code = ACTI) 274 SEC 74-125 H [id number] 14:13:00 Test Item Value Reference Range Interpretation Comments ACT-ISTAT (test code = ACTI) 241 SEC 74-125 H [id number] 08:29:00 Test Item Value Reference Range Interpretation Comments GLUBED (test code = GLUBED) 115 MG/DL 74-106 H [id number] 19:03:00 Test Item Value Reference Range Interpretation Comments GLUBED (test code = GLUBED) 143 MG/DL 74-106 H [id number] 16:36:00 Test Item Value Reference Range Interpretation Comments GLUBED (test code = GLUBED) 314 MG/DL 74-106 H [id number] 12:15:00 Test Item Value Reference Range Interpretation Comments GLUBED (test code = GLUBED) 130 MG/DL 74-106 H COVID 19 Asymptomatic IH [id number] 09:47:00 Test Item Value Reference Range Interpretation Comments COVID 19 Asymptomatic IH AG (test NEGATIVE Negative code = COVNONPUIAG) Spec Comments: PATIENT GOING TO CATH LABPROTHROMBIN [id number] 09:38:00 Test Item Value Reference Range Interpretation [...] Aspirin Enoxaprin (Lovenox)Spec Comments: PATIENT GOING TO AIR CONDITIONING ENGINEER 1, THROMBOPLASTIN TIME [id number] 09:38:00 Test Item Value Reference Range Interpretation Comments THROMBOPLASTIN TIME 27.1 SECONDS 23.4-37.0 N Therape utic Range PARTIAL (test code = for Hep audrey PTT) EFFECTIVE Heparin IU/mL a PTT Seconds0.3 64. 30.7 88.8 IS PATIENT ON ANTICOAGULANTS ? 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 TO AIR CONDITIONING ENGINEER 1,GLUBED 2020-07-03 08:24:00 Test Item Value Reference Range Interpretation Comments GLUBED (test code = GLUBED) 135 MG/DL 74-106 H BASIC METABOLIC [id number] 06:53:00 Test Item Value Reference Range Interpretation [...] 9.1 mg/dL 8.4-10.2 N CA) CBC W/AUTO [id number] 06:42:00 Test Item Value Reference Range Interpretation [...] = BA#) 0.05 x10 3/uL 0.0-0.1 N [id number] 21:27:00 Test Item Value Reference Range Interpretation Comments GLUBED (test code = GLUBED) 234 MG/DL 74-106 H [id number] 16:22:00 Test Item Value Reference Range Interpretation Comments GLUBED (test code = GLUBED) 195 MG/DL 74-106 H [id number] 12:04:00 Test Item Value Reference Range Interpretation Comments GLUBED (test code = GLUBED) 179 MG/DL 74-106 H [id number] 08:51:00 Test Item Value Reference Range Interpretation Comments GLUBED (test code = GLUBED) 124 MG/DL 74-106 H [id number] 20:53:00 Test Item Value Reference Range Interpretation Comments GLUBED (test code = GLUBED) 129 MG/DL 74-106 H [id number] 18:30:00 Test Item Value Reference Range Interpretation Comments GLUBED (test code = GLUBED) 174 MG/DL 74-106 H [id number] 12:32:00 Test Item Value Reference Range Interpretation Comments GLUBED (test code = GLUBED) 152 MG/DL 74-106 H [id number] 08:40:00 Test Item Value Reference Range Interpretation Comments GLUBED (test code = GLUBED) 98 MG/DL 74-106 N [id number] 20:46:00 Test Item Value Reference Range Interpretation Comments GLUBED (test code = GLUBED) 110 MG/DL 74-106 H - DUP LE ART [id number] 18:07:00 [facility] : 1965 Sex: M FAX: Patrick Ponce Arm [phone] [place]: St: ADM FAX: Nathanael Romero [phone] -------- Name: HARJINDER COLUNGA [facility] : 1965 Age/S: 55/M [address] Unit #: [id number] Loc: [address] [place] [address] Phys: RembertoPatrick DPM R2 Acct: [id number] Dis Date: Status: ADM IN PHONE #: [phone] Exam Date: 06/30/2020 173 FAX #: [phone] Reason: WOUNDS EXAMS: CPT CODE: [id number] [facility] LE ART INDERJIT 11526 STUDY: Bilateral lower extremity ultrasound with Doppler. [...] arterial disease. PAGE1 Signed Report (CONTINUED) FAX: Patrick Sr Arm [phone] [place]: St: ADM FAX: Nathanael Romero [phone] Name: HARJINDER COLUNGA [place] : 1965 Age/S: 55/M [address] Unit #: [id number]: [address] [place] [address] Phys: Patrick Sr DPM R2 Acct: [id number] Dis Date: Status: ADM IN PHONE #: [phone] Exam Date: 06/30/2020 1731 FAX #: [phone] Reason: WOUNDS EXAMS: CPT CODE: [id number] DUP LE ART INDERJIT 24807 <Continued> at 1807 Reported and signed by: Donaldo Wen MD CC: Patrick Sr DPM; Nathanael Laureano Technologist: MARK Gallardo [facility] Date/Time/By: 06/30/2020 (1807) : By: [email or web address] PAGE 2 Signed Report FAX: Patrick Sr Arm [phone] [place]: [facility]: ADM FAX: Ra tae Romero [phone] Name: HARJINDER COLUNGA [facility] : 1965 Age/S: 55/M [address] Unit #: [id number]: [address] [place] [address] Phys: Patrick Sr DPM R2 Acct: [id number] Dis Date: Status: ADM IN PHONE #: [phone] Exam Date: 06/30/2020 1731 FAX #: [phone] Reason: WOUNDS EXAMS: CPT CODE: [id number] DUP LE ART INDERJIT [address]4710 <Continued> Orig Print D/T: S: 06/30/2020 (7390) PAGE 3 Signed Report- DOP ART 1-2 LEVELS [id number] 18:07:00 [facility] : 1965 Sex: M FAX: Patrick Ponce Arm [phone] [place]: [facility]: ADM FAX: Pavel Hicks MD [phone] Name: HARJINDER COLUNGA MikadoDOB: 1965 Age/S: 55/M [address] Unit #: [id number] Loc: [address] [place] [address] Phys: RembertoPatrick DPM R2 Acct: [id number] Dis Date: Status: ADM IN PHONE #: [phone] Exam Date: 06/30/2020 173 FAX #: [phone] Reason: WOUNDS, HX OF SMOKING, NON PALP PULSES EXAMS: CPT CODE: [id number] DOP ART 1-2 LEVELS [facility] [address] STUDY: Bilateral lower extremity ultrasound with Doppler. [...] PAGE 1 Signed Report (CONTINUED) FAX: RembertoPatrick Campbell [phone] [place]: [facility]: ADM FAX: Pavel Hicks MD [phone] Name: HARJINDER COLUNGA [facility] : 1965 Age/S: 55/M [address] Unit #: [id number] Loc: [address] [place] [address] Phys: Patrick Sr DPM R2Acct: [id number] Dis Date: Status: ADM IN PHONE #: [phone] Exam Date: 06/30/2020 1731 FAX #: [phone] Reason: WOUNDS, HX OF SMOKING, NON PALP PULSES EXAMS: CPT CODE: [id number] DOP ART 1-2 LEVELS [facility] [address] <Continued> at 1807 Reported and signed by: Donaldo Wen MD CC: Patrick Sr DPM; Pavel Muñoz MD Technologist: Radha Birmingham Melly Trnscrd Date/Time/By: 06/30/2020 (1807) : By: [email or web address] PAGE 2 Signed Report FAX: Patrick Sr Arm [phone] [place]: [facility]: ADM FAX: Pavel Hicks MD [phone] -------- Name: HARJINDER COLUNGA [facility] : 1965 Age/S: 55/M [address] Unit #: [id number] Loc: [address] [place] [address] Phys: RembertoPatrick DPM R2 Acct: [id number] Dis Date: Status: ADM IN PHONE #: [phone] Exam Date: 06/30/2020 1731 FAX #: [phone] Reason: WOUNDS, HX OF SMOKING, NON PALP PULSES EXAMS: CPT CODE: [id number] DOP ART 1-2 LEVELS INDERJIT 94931 <Continued> Orig Print D/T: S: 06/30/2020 (1809) PAGE 3 Signed [id number] 16:25:00 Test Item Value Reference Range Interpretation Comments GLUBED (test code = GLUBED) 244 MG/DL 74-106 H [id number] 12:16:00 Test Item Value Reference Range Interpretation Comments GLUBED (test code = GLUBED) 246 MG/DL 74-106 H [id number] 08:54:00 Test Item Value Reference Range Interpretation Comments GLUBED (test code = GLUBED) 172 MG/DL 74-106 H [id number] 21:00:00 Test Item Value Reference Range Interpretation Comments GLUBED (test code = GLUBED) 118 MG/DL 74-106 H [id number] 15:58:00 Test Item Value Reference Range Interpretation Comments GLUBED (test code = GLUBED) 249 MG/DL 74-106 H [id number] 12:28:00 Test Item Value Reference Range Interpretation Comments GLUBED (test code = GLUBED) 285 MG/DL 74-106 H - MRI LOW EXT W/O CONT [id number] 11:17:00 [facility] : 1965 Sex: M FAX: Armando maluPatrick see Adrian [phone] [place]: St: ADM FAX: Pavel Hicks MD [phone] Name: HARJINDER COLUNGA [facility] : 1965 Age/S: 55/M [address] Unit #: [id number] Loc: [address] [place] [address] Phys: Patrick Sr DPM R2 Acct: [id number] Dis Date: Status: ADM IN PHONE #: [phone] Exam Date: 06/29/2020 0959 FAX #: [phone] Reason: INDERJIT le WOUNDS IN FORE FOOT EXAMS: CPT CODE: [id number] MRI LOW EXT W/[place] [address] EXAM: - MRI LOW EXT W/O CONT [...] 1 Signed Report FAX: Patrick Sr Arm [phone] [place]: St: ADM FAX: Pavel Hicks MD [phone] Name: BRIGHTHARJINDER MURPHY [facility] : 1965 Age/S: 55/M [address] Unit #: [id number] Loc: [address] [place] [address] Phys: Patrick Sr DPM R2 Acct: [id number] Dis Date: Status: ADM IN PHONE #: [phone] Exam Date: 06/29/2020 0959 FAX #: [phone] Reason: INDERJIT le WOUNDS IN FORE FOOT EXAMS: CPT CODE: [id number] MRI [place] EXT W/[place] [address] <Continued> Orig Print D/T: S: 06/29/2020 (1120) PAGE 2 Signed Report- MRI LOW EXT W/O CONT RT 2020-06-29 10:16:00 [facility] : 1965 Sex: M FAX: Patrick Will Arm [phone] [place]: St: ADM FAX: Pavel Hicks MD [phone] Name: [place]ER [place] : 1965 Age/S: 55/M [address] Unit #: [id number] Loc: [address] [place] [address] Phys: Patrick Sr DPM Acct: [id number] Dis Date: Status: ADM IN PHONE #: [phone] ExamDate: 06/29/2020 0959 FAX #: [phone] Reason: NIDERJIT FOOT WOUNDS EXAMS: CPT CODE: [id number] MRI LOWEXT W/[place] [address] EXAM: - MRI LOW EXT W/O CONT [...] DPM; Pavel Muñoz MD Technologist: Wendy Agee Trnakrd Date/Time/By: 06/29/2020 (1016) : By: [email or web address] PAGE 1 Signed Report FAX: Patrick Sr Adrian [phone] [place]: St: ADM FAX: Pavel Hicks MD [phone] Name: HARJINDER COLUNGA [place] : 1965 Age/S: 55/M [address] Unit #: [id number] Loc: [address] [place] [address] Phys: Remberto,Patrick Abner DPMR2 Acct: [id number] Dis Date: Status: ADM IN PHONE #: [phone] Exam Date: 06/29/2020958 FAX #: [phone] Reason: INDERJIT FOOT WOUNDS EXAMS: CPT CODE: [id number] MRI LOW EXT W/[place] [address] <Continued> Orig Print D/T: S: 06/29/2020 (1020) PAGE 2 Signed ReportCOMPREHENSIVE METABOLIC [id number] 09:31:00 Test Item Value Reference Range Interpretation [...] N (test code = ALKP) COMPREHENSIVE METABOLIC [id number] 09:30:00 Test Item Value Reference Range Interpretation [...] U/L 38-126 N (test code = ALKP) [id number] 09:28:00 Test Item Value Reference Range Interpretation Comments GLUBED (test code = GLUBED) 184 MG/DL 74-106 H CBC W/AUTO [id number] 07:48:00 Test Item Value Reference Range Interpretation [...] BA#) 0.03 x10 3/uL 0.0-0.1 N SED [id number] 07:48:00 Test Item Value Reference Range Interpretation Comments SED RATE (test code = SEDW) 85 mm/hr 0-20 H HGBA1C - GLYCOSYLATED [id number] 07:08:00 Test Item Value Reference Range Interpretation [...] with these hemo globin variants. CBC W/AUTO [id number] 06:43:00 Test Item Value Reference Range Interpretation [...] BA#) 0.03 x10 3/uL 0.0-0.1 N SED [id number] 06:43:00 Test Item Value Reference Range Interpretation [...] LDL Cholesterol<1 00mg/ dL: Desirable L DL-C jbzqcwaojzjaw40 0-159 mg/dL: Borderli ne High Risk LDL-C ebcmpsbonckko04 0-189 mg/dL: High ris k LDL-C concentra tion HDL-LDL Cholest adi is affected by a number of facto rs suchas smoking, age and sex.~~~~~~~~~~~ ~~~~~ ~~~~~~~~~~~~~~~ ~~~~~ ~~~~~~~~~~~~~~~ ~~~~~ ~~~~ C REACTIVE [id number] 05:49:00 Test Item Value Reference Range Interpretation [...] LDL Cholesterol<1 00mg/dL : Desirable LDL -C sgdrythsmaoyx37 0-159mg /dL: Borderline High Risk LDL-C qaxjkkmgywmbd81 0-189mg /dL: High risk LDL-C concentration H DL-LDL Cholesterol is affected by a n umber of factors such as smoking, age an d sex.~~~~~~~~~~~ ~~~~~~~ ~~~~~~~~~~~~~~~ ~~~~~~~ ~~~~~~~~~~~~~~~ ~~~~~ C REACTIVE [id number] 05:42:00 Test Item Value Reference Range Interpretation Comments C REACTIVE PROTEIN (test code = 51.3 mg/L 0-9 H CRP) [id number] 20:47:00 Test Item Value Reference Range Interpretation Comments GLUBED (test code = GLUBED) 253 MG/DL 74-106 H BASIC METABOLIC [id number] 17:16:00 Test Item Value Reference Range Interpretation Comments SODIUM (test code = 130 mmol/L 137-145 L NA) POTASSIUM (test code 4.6 mmol/L 3.4-5.0 N = K) CHLORIDE (test code = 93 mmol/L 98-107 L CL) CARBON DIOXIDE (test 29 mmol/L 22-30 N code = CO2) GLUCOSE (test code = 404 mg/dL 74-106 HH Critica l Value GLU) reported toFirs t Name:[id number] Joelle Name:RESULTS RE AD BACK AND VERIFIEDby DAT2, on 06/28/20, @ 171 6. BLOOD UREA [...] 9.1 mg/dL 8.4-10.2 N CA) LIVER FUNCTION [id number] 17:16:00 Test Item Value Reference Range Interpretation [...] 38-126 N (test code = ALKP) LACTIC [id number] 17:04:00 Test Item Value Reference Range Interpretation Comments LACTIC ACID (test code = LACT) 1.7 mmol/L 0.7-2.0 N - XR FOOT 3 + V [id number] 17:00:00 [facility] : 1965 Sex: M FAX: Giovany Landa MD R1 [place]: St: REG Name: HARJINDER COLUNGA [facility] : 1965 Age/S: 55/M [address] Unit #: [id number] Loc: [place] [address] Phys: Giovany Landa MD R1 Acct: [id number] Dis Date: Status: REG ER PHONE #: [phone] Exam Date: 06/28/2020 1649 FAX #: [phone] Reason: left foot wound EXAMS: CPT CODE: [id number] XR FOOT 3 + [place] [address] EXAM: - XR FOOT 3 + V [...] YEAR Trnscrd Date/Time/By: 06/28/2020 (1700) : By: [email or web address].[email or web address] PAGE 1Signed Report FAX: Giovany Landa MD R1 [place]: St: REG Name: HARJINDER COLUNGA [facility] : 1965 Age/S: 55/M [address] Unit #: [id number] Loc: [place] [address] Phys: Giovany Landa MD R1 Acct: [id number] Dis Date: Status: REG ER PHONE #: [phone] Exam Date: 06/28/2020 1649 FAX #: [phone] Reason: left foot wound EXAMS: CPT CODE: [id number] XR FOOT 3 + [place] [address] <Continued> Orig Print D/T: S: 06/28/2020 (8151) PAGE 2 Signed ReportUA RFLX MICR CULT IF [id number] 16:19:00 Test Item Value Reference Range Interpretation [...] The system which generated this result transmit ynaa reference range : <4-5. The reference range [...] oth srcSOURCE OF URINE: CLEAN CATCHCBC W/AUTO [id number] 15:48:00 Test Item Value Reference Range Interpretation [...] 3/uL 0.0-0.1 N - XR CHEST 1 [id number] 15:36:00 [facility] : 1965 Sex: M FAX: Mi Ellis NP [place]: St: PRE -------- Name: HARJINDER COLUNGA [facility] : 1965 Age/S: 55/M [address] Unit #: [id number] Loc: [place] [address] Phys: Mi Ellis NP Acct: [id number] Dis Date: Status: PRE ER PHONE #: [phone] Exam Date: 06/28/2020 1533 FAX #: [phone] Reason: CODE SEPSIS EXAMS: CPT CODE: [id number] XR CHEST 1 V 89058 EXAMINATION: Frontal chest radiograph INDICATION: Code sepsis COMPARISON: 02/27/2016 FINDINGS: Clear lungs. No pleural effusion or pneumothorax. Normal cardiomediastinalsilhouette. IMPRESSION: No acute abnormality identified. Electronically Signed by Amanda Avila 06/28/2020 at 1536 Reported and signed by: Richard Lopez M.D. CC: Mi Ellis NP Technologist: Lindsey Ha; STUDENT 2ND YEAR Trnakrd Date/Time/By: 06/28/2020 (1536) : By: [email or web address] PAGE 1 SignedReport FAX: Mi Ellis NP [place]: [facility]: PRE Name: HARJINDER COLUNGA [facility] [place] : 1965 Age/S: 55/M [address] [id number] Loc: [place] [address] Phys: Mi Ellis NP Acct: [id number] Dis Date: Status: PRE ER PHONE #: [phone] Exam Date: 06/28/2020 1533 FAX #: [phone] Reason: CODE SEPSIS EXAMS: CPT CODE: [id number] XR CHEST 1 V 95413 <Continued> Orig Print D/T: S: 06/28/2020 (8457) PAGE 2 Signed Report- [facility] NON VASC [id number] 15:47:00[facility]EN[facility] COL[facility] : 1965 Sex: M Patient Name: HARJINDER COLUNGA Unit No: [id number] EXAMS: CPT CODE: [id number] [facility] NON VASC LTD 00826 HISTORY: Infection Location: C3 FINDINGS: Sonographic images of the leg were obtained. No soft tissue fluid collection demonstrated. No cystic or solid mass identified. IMPRESSION: 1. Soft tissue edema without discrete dominant fluid collection or cystic or solid mass lesion. at 1547 Reported and signed by: Donaldo Tang M.D. CC: Rod Cerda NP Technologist: Ely Lopez RDMS Trnscrbd D/ (1547) FreyaR.RXC2 Probe: [id number] Orig Print D/T: S: 02/27/2020 (1550) Probe: CAMELIA Vora NAME: [address] PHYS: [place], [place] [address] : 1965 AGE: 54 SEX: M LOC: B.ERS PHONE #: [phone] EXAM DATE: 02/27/2020 STATUS: REG ER FAX #: [phone] RAD NO: Page 1 Signed Report BASIC METABOLIC [id number] 15:20:00 Test Item Value Reference Range Interpretation [...] 70-110 HH ON 12/08 AT GLU) 1520, a.[facility].8 6 CALLED TO LUDIN LANG. The rep [...] NORMAL code = LIPINDEX) Index/DL GLUCOSE BEDSIDE [id number] 14:32:00 Test Item Value Reference Range Interpretation Comments GLUCOSE BEDSIDE 459 MG/DL 70-119 HH LOW/HIGH KVNG RT VALUE - TESTING (test code = ACTION REQUIRED GLUBED) - CT ABD PELVIS W/O [id number] 16:45:00 Name: HARJINDER COLUNGA [facility] : 1965 Age/S: 54 / M [address] Unit #: [id number] Loc: [address] Phys: Brennan Dupont MD [place], [place] [address] Acct: [id number] Dis Date: Status: REG ER PHONE #: Exam Date: 10/08/2019 8512 FAX #: Reason: R sided flan pain EXAMS: CPT CODE: [id number] CT ABD PELVIS W/O CONT 73668 EXAM: CT of the abdomen and pelvis [...] acute abdominal or pelvic abnormalities. Location code: [facility] ED at 1645 Reported and signed by: Feliciano Mcdaniel M.D. 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 (test code = UAMICRO) COMPREHENSIVE METABOLIC [id number] 13:06:00 Test Item Value Reference Range Interpretation [...] 50-139 N code = ALKP) CBC W/AUTO [id number] 12:54:00 Test Item Value Reference Range Interpretation [...] REQUIRED (test code NO = MDIFF) CHEM [id number] 14:06:001.11[facility] [id number] 14:06:0078 [facility] [id number] 14:06:94645Qlbdpkhe HermannHEMATOLOGY 2016-01-03 14:06:00 Test Item Value Reference Range Interpretation Comments PTT (test code = PTT) 24.1 s 22.9-35.8 [facility] NqqikrqVEFLXGYUWD8879-02-39 06:35:004.52[facility]annHEMATOLOGY 2016-01-03 06:35:0013.3[facility] ZnxcakrXXCSBHGTKT4907-09-10 06:35:009.9[facility] TdjfsquLOTTIRSPUM3222-92-61 06:35:002.6[facility] JetddqxIDFWPTXHUA6153-32-76 06:35:00Normal (01/03/16 1:35 AM)[facility] ZqdpjaxJOWTQNSBEH8936-08-15 06:35:00 Normal (01/03/16 1:35 AM)[facility] OcgtsyqAOHHGCWEWR5037-74-60 06:35:0019.4 [facility] MbolcmmALJJMCAVRG5885-57-08 06:35:0074.2[facility]annHEMATOLOGY 2016-01-03 06:35:000.1[facility] HrynbjgLICWVKJDJO8967-95-77 06:35:000.7[facility] EblbhzwWQEEFLOSIU8641-60-10 06:35:000.1[facility] JlxhxvuXLCZJBXEYP5081-58-98 06:35:000.6[facility] RysrnwyAZVUZPZJKO5792-40-79 06:35:000.8[facility] UGFTVVEPYT1112-29-08 06:35:005.0[facility] HermannCARDIAC RZTLYIZ3914-18-68 06:35:0047[facility]annCARDIAC PPLYWOR1291-31-74 06:35:0011[facility] CHEM DDQDU2324-34-49 06:35:73258Kzgpivcc HermannCHEM ZGRRB5765-01-91 06:35:00 13.5[facility]annCHEM AOSMB8247-19-53 06:35:0024[facility]annCHEM PANEL 2016-01-03 06:35:003.5[facility]annCHEM RYCJU3500-86-59 06:35:003.1[facility]annCHEM PKYZQ8401-84-47 06:35:26291Flxzdlfi HermannCHEM LAJME9814-69-04 06:35:89906Ykfmlakq HermannCHEM BDJQC4749-63-43 06:35:008.2[facility]annCHEM UJGTY3557-53-61 06:35:009[facility]annCHEM ABSLH2236-22-43 06:35:006.3 [facility]annCHEM PEMYL1378-72-52 06:35:003.2[facility]annCHEM PANEL 2016-01-03 06:35:0061[facility]annCHEM HBNJZ6939-82-56 06:35:000.5[facility]annCHEM LDIGN2667-40-21 06:35:0011[facility]annCHEM PRGXG1102-42-37 06:35:001.0[facility]annCHEM EOOAF0716-62-62 06:35:0022[facility]annCHEM GZDYI9197-41-92 06:35:000.88[facility]annCHEM KWVGH8454-58-77 06:35:008 [facility]annCHEM ESNYV1319-10-76 06:35:75513Otzraxpg HermannCHEM PANEL 2016-01-03 06:35:001.8[facility] IjtypsgWXYAQNDYMQ4320-63-12 06:35:007.9[facility] GqpfgdgQBYZYXYOZB8069-43-52 06:35:90631Ofvfisia FnzrareVKFRTHPRUM4205-10-52 06:35:0034.8[facility] UabidyfECSUPURRFE9889-07-72 06:35:00 Test Item Value Reference Range Interpretation Comments MCH (test code = MCH) 30.9 pg 27.0-31.0 [facility] GgedonfPHDQHBEPST6634-21-61 06:35:0088.8[facility]annHEMATOLOGY 2016-01-03 06:35:0040.2[facility] OryrqgcKSDWRAXVQJ5512-99-28 06:35:0014.0[facility] FqmfjdpGCZVLYCAHI2096-49-31 06:35:0012.8[facility]annCHEM CPQCQ0961-94-21 10:18:008.1[facility]annCHEM IQMGY1596-08-96 10:18:0026[facility]annCHEM JOBZP3247-00-76 10:18:28014Anrjrdze HermannCHEM KCKOK4832-80-30 10:18:009 [facility]annCHEM GEAME5535-76-24 10:18:004.0[facility]annCHEM PANEL 2015-12-19 10:18:39709Ujkghxii HermannCHEM GGJSE7272-95-88 10:18:59785Jkhnggqh HermannCHEM NDISO9029-17-11 10:18:85374Bnicqrkv HermannCHEM OIBVM2968-81-42 10:18:000.76[facility]annCHEM WWFIH3339-41-92 10:18:0012.0[facility] YBTDZWKFNC2113-60-79 10:18:00 Test Item Value Reference Range Interpretation Comments MCH (test code = MCH) 30.4 pg 27.0-31.0 [facility] SvigtdgVLJKOMOPXG9998-24-02 10:18:59571Dsavvvwn HermannHEMATOLOGY 2015-12-19 10:18:0034.3[facility] YfpxytwWCEPCAGSOI1625-61-40 10:18:008.2[facility] EznjpzhVUQARQTEFA5066-89-21 10:18:0012.4[facility] ZszgmwpDLZSKNOZUR7920-46-00 10:18:0010.3[facility] FoaqjecLZDRIFYHSV7629-14-77 10:18:004.51[facility] HFTATZYZKR1374-67-97 10:18:0088.7[facility] BnzbpfeQTIFYDZFKX8143-50-29 10:18:00 13.7[facility] MhezwtpDRSMYVQPOV4855-75-51 10:18:0040.0[facility]annHEMATOLOGY 2015-12-19 10:18:0018.9[facility] CsngqrzLTUMFIJLHY2526-65-84 10:18:0073.5[facility] FwbamunWULCQEUSUK5188-51-78 10:18:006.7[facility] QpnluxtMIBVEUZMJR9933-67-46 10:18:007.6[facility] SplrjtcBNJEFPGTRN3009-61-76 10:18:000.4[facility] KTLEGEGIJB5847-08-87 10:18:000.0[facility] KguwwizGKGRKDRQRG9750-95-29 10:18:000.7 [facility] EwptqizWDQUWYJLGQ4697-04-97 10:18:000.5[facility]annHEMATOLOGY 2015-12-19 10:18:001.9[facility] CwaltpoEZMVVBMFCO1695-99-59 10:18:000.0[facility] HermannCHEM EGYOQ4136-60-05 04:30:0090[facility]annCHEM ANHWG9589-79-50 04:30:007.8[facility]annCHEM TNQHY3164-06-48 04:30:000.6[facility]annCHEM XREXZ6915-20-48 04:30:0062[facility]annCHEM HYHTS2048-16-93 04:30:0010 [facility]annCHEM MQMEZ5634-74-14 04:30:0013.0[facility] HermannCHEM PANEL 2015-12-13 04:30:0024[facility] HermannCHEM RAOON1725-05-23 04:30:001.34[facility]annCHEM TPOBB6802-82-94 04:30:37545Lskwfrth HermannCHEM GGKRH4225-85-37 04:30:0015[facility] HermannCHEM EUCXX9278-72-02 04:30:0017[facility] HermannCHEM NYUFJ4304-88-35 04:30:003.7[facility] HermannCHEM MKLDZ0837-11-91 04:30:0011 [facility]annCHEM SLNSY2430-66-81 04:30:004.0[facility] HermannCHEM PANEL 2015-12-13 04:30:008.6[facility] HermannCHEM JOVWL2749-80-47 04:30:10772Jppvyvtg HermannCHEM MAVTH8263-02-98 04:30:0099[facility] HermannCHEM VREQX2309-24-66 04:30:004.1[facility] HermannCHEM WIGXD5827-82-60 04:30:000.9[facility] BZEIOFKNCI5542-36-02 04:30:000.4[facility] VnsabtxHAFQAMXLIX2218-08-23 04:30:000.0 [facility] NbwhrbeNFBNFVVIGG7078-64-82 04:30:001.3[facility]annHEMATOLOGY 2015-12-13 04:30:006.1[facility] CpnnlehOGSMSFGECJ6114-58-73 04:30:000.3[facility] KivzglkHAYMYCCVVU9708-01-81 04:30:000.4[facility] GooksycAPAVUQBZRW0934-69-84 04:30:005.5[facility] XurngiwEUNZOXNTWS9949-30-84 04:30:0077.4[facility] LOXSGIINVR5852-62-32 04:30:0016.4[facility] ZfvniqzKGQEXLUIHX3465-74-77 04:30:00 340[facility] CmbpfuoBDTGMYWABO5721-55-78 04:30:008.4[facility]annHEMATOLOGY 2015-12-13 04:30:0034.2[facility] QtdqpxsEBHKNMXXUT5963-27-50 04:30:0012.8[facility] LcvqqhnIEJLRKSGUK4680-08-37 04:30:0015.3[facility] JswujbsZKDLBVVNHG9633-23-39 04:30:0044.7[facility] ObratbcHHZKVKYVMS6773-04-50 04:30:00 Test Item Value Reference Range Interpretation Comments MCH (test code = MCH) 30.6 pg 27.0-31.0 [facility] PhmwpvzFQUVAZNVSK6946-27-33 04:30:0089.4[facility] HermannHEMATOLOGY 2015-12-13 04:30:007.9[facility] LzasheeLSOANZYGVI4653-85-05 04:30:004.99[facility] ZuizvgfCOKJBUVJZC7143-65-06 04:30:00<2[facility] ZygcizhGGVPBXIPAB3414-90-17 04:30:00<0.003[facility] MvnarjlGICVAISWEY7018-82-76 04:30:00<3[facility] VwghflqTLHZZRSROF1764-77-90 04:30:004.1[facility]
[2023-02-12] MEDS ORDERED: NA CHLORIDE 0.9% 2,000 ML ONE (22:36)
[2023-02-12] MEDS ORDERED: ALBUMIN HUMAN 25% 100 ML IV ONE (22:36)
[2023-02-12 23:10] LABS: Absolute Lymphocytes (CBC) 1.6 K/uL (0.7-4.9); Hematocrit 28.9 % (39.6-49.0); Lymphocytes % 31.8 % (15.3-44.8); MCV 91.6 fL (80-100); MPV 8.2 fL (7.6-11.3); Platelets 233 thou/uL (152-406); RBC Red Blood Cell Count 3.16 M/uL (4.33-5.43)
[2023-02-12 23:11] LABS: Protime INR 1.12
[2023-02-12] MEDS ORDERED: MIDODRINE HCL 5 MG TABLET ONE (23:27)
[2023-02-12 23:36] LABS: C-Reactive Protein < 2.90 mg/L (<3.00)
[2023-02-12 23:39] LABS: ALT/SGPT 14 U/L (16-61); AST/SGOT < 4 U/L (15-37); Alkaline Phosphatase 60 U/L (45-117); BUN Blood Urea Nitrogen 29 mg/dL (7-18); Bicarbonate 23 mEq/L (21-32); Bilirubin Direct < 0.1 mg/dL (0-0.2); Bilirubin Indirect, Calculated ND mg/dL (0.2-0.8); Bilirubin Total 0.2 mg/dL (0.2-1.0); Glomerular Filtration Rate 50 ml/min (=/>90); Glucose Level 138 mg/dL (74-106); Potassium 4.9 mEq/L (3.5-5.1); Protein, Total 6.4 g/dL (6.4-8.2); Sodium Level 138 mEq/L (136-145); Valproic Acid (Depakene) Level 48.8 mcg/mL (50.0-100.0)
[2023-02-12 23:52] LABS: Magnesium 1.8 mg/dL (1.6-2.4)
--- NOTE | 2023-02-13 00:09 | ER ---
Nurse's Notes [facility] Name: Shivam Block Age: 57 yrs Sex: Male : 1965 Arrival Date: 02/12/2023 Time: 21:59 Bed 19 Private MD: Diagnosis: Other seizures;Breakthrough seizure, fall at home, acute headache, hypotensive episode, near syncope Presentation: 02/12 22:01 Chief complaint: EMS states: have been having seizure episodes in the past 3 days, rv today slipped and fell, then had another seizure episode. Coronavirus screen: At this time, the client does not indicate any symptoms associated with coronavirus-19. Ebola Screen: No symptoms or risks identified at this time. Initial Sepsis Screen: Does the patient meet any 2 criteria? No. Patient's initial sepsis screen is negative. Does the patient have a suspected source of infection? No. Patient's initial sepsis screen is negative. Risk Assessment: Do you want to hurt yourself or someone else? Patient reports no desire to harm self or others. Onset of symptoms was February 12, 2023. 22:01 Method Of Arrival: EMS: [facility] 22:01 Acuity: TERRANCE 2 rv Triage Assessment: 22:03 General: Appears comfortable, Behavior is calm, cooperative. Pain: Complains of pain in rv head. Neuro: Level of Consciousness is awake, alert, obeys commands, Oriented to person, place, time, situation, Reports headache. Cardiovascular: Capillary refill < 3 seconds Patient's skin is warm and dry. Respiratory: Airway is patent Respiratory effort is even, unlabored. GI: No signs and/or symptoms were reported involving the gastrointestinal system. : No signs and/or symptoms were reported regarding the genitourinary system. Derm: Skin is intact. Musculoskeletal:. Historical: - Allergies: 22:03 Fish Containing Products; rv 22:03 SEAFOOD; rv - PMHx: 22:03 Atrial fibrillation; diabetes mellitus; Hypertensive disorder; Myocardial infarction; rv - PSHx: 22:03 bilateral BKA; rv - Immunization history:: Adult Immunizations up to date. - Social history:: Smoking status: Patient reports the use of cigarette tobacco products, smokes one pack cigarettes per day. - Family history:: not pertinent. Screenin:05 [facility] ED Fall Risk Assessment (Adult) History of falling in the last 3 months, rv including since admission Yes- fall prone (multiple falls) (3 pts) Score/Fall Risk Level 3 or more points = High Risk Oriented to surroundings, Maintained a safe environment, Educated pt \T\ family on fall prevention, incl call for assistance when getting out of bed, Assessed \T\ reinforced patient's understanding of fall precautions, Provided non-skid footwear, Hourly rounding (assess needs \T\ fall precautionary measures) done, Used ambulatory aids as needed (educated on \T\ assisted with), Used gait belt as appropriate Implemented a Fall Risk Plan of Care, Apply high fall risk patient identification: yellow non skid footwear/ fall signage, Placed fall mat w/ non beveled edge next to bed, Activated bed/chair alarm, Remained w/in arm's length of patient and in sight while toileting, Offered frequent toileting (1:1 observation), Remained with patient while ambulating, Utilized family, sitter, or virtual textile designer as indicated. Abuse screen: Denies threats or abuse. Denies injuries from another. Nutritional screening: No deficits noted. Tuberculosis screening: No symptoms or risk factors identified. Assessment: 23:02 Reassessment: GREGORIO (SISTER) [phone]. rv 02/13 07:00 Reassessment: [facility] db Vital Signs: 02/12 22:00 BP 84 / 50; Pulse 60; Resp 16; Pulse Ox 99% on R/A; rv 22:01 BP 93 / 60; Pulse 62; Resp 17; Temp 98.1; Pulse Ox 98% ; Weight 83.91 kg; rv 22:15 BP 76 / 51; Pulse 58; Resp 17; Pulse Ox 98% on R/A; rv 22:30 BP 85 / 57; Pulse 58; Resp 17; Pulse Ox 97% on R/A; rv 22:45 BP 97 / 43; Pulse 61; Resp 16; Pulse Ox 98% on R/A; rv 23:00 BP 111 / 70; Pulse 59; Resp 12; Pulse Ox 97% ; rv 23:15 BP 107 / 62; Pulse 59; Resp 13; Pulse Ox 97% on R/A; rv 23:30 BP 116 / 63; Pulse 58; Resp 12; Pulse Ox 97% on R/A; rv 23:45 BP 117 / 64; Pulse 57; Resp 12; Pulse Ox 97% ; rv ED Course: 22:00 Patient arrived in ED. as6 22:01 Ji Stephen, [place] is Primary Nurse. rv 22:03 Triage completed. rv 22:03 Mich Trejo MD is Attending Physician. sp4 22:05 Arm band placed on right wrist. rv 22:05 Placed in gown. Client placed on continuous cardiac and pulse oximetry monitoring. NIBP rv monitoring applied. night monitor on. 22:05 No provider procedures requiring assistance completed. rv 22:10 Inserted saline lock: 20 gauge in right antecubital area, using aseptic technique. rv Blood collected. 22:35 Inserted saline lock: 20 gauge in left forearm, using aseptic technique. Blood rv collected. 02/13 00:08 Juan Carlos Hernandez MD is Hospitalizing Provider. sp4 00:12 Head C Spine Cap Wo Con In Process Unspecified. EDMS 12:00 Provided Education on: ADMISSION. db 12:00 Patient admitted, IV remains in place. db Administered Medications: 02/12 22:15 Drug: NS 0.9% IV 1000 ml IV at 1 bolus Per protocol; 1000 mL bolus Route: IV; Rate: 1 rv bolus; Site: right antecubital; 02/13 00:11 Follow up: IV Status: Completed infusion; IV Intake: 1000ml rv 02/12 22:15 Drug: Albumin IVPB 25 grams 100 ml IVPB once; (Note: Albumin 25% concentration) Volume: rv 100 ml; Route: IVPB; Site: right antecubital; 02/13 00:11 Follow up: IV Status: Completed infusion; IV Intake: 100ml rv 02/12 22:50 Drug: NS 0.9% IV 1000 ml IV at 1 bolus Per protocol; 1000 mL bolus Route: IV; Rate: 1 rv bolus; Site: left forearm; 02/13 00:11 Follow up: IV Status: Completed infusion; IV Intake: 1000ml rv 02/12 23:20 Drug: midodrine 5 mg Feeding Tube once; Give PO 5 mg one time dose in ER Route: Feeding rv Tube; 02/13 00:11 Follow up: Response: No adverse reaction rv 00:18 Drug: Valproic Acid IV 500 mg IV at calculated rate once over 60 mins; (mix in 100 mL rv NS) Route: IV; Rate: calculated rate; Infused Over: 60 mins; Site: left forearm; Medication: 02/12 22:05 VIS not applicable for this client. rv Intake: 02/13 00:11 IV: 1000ml; Total: 1000ml. rv 00:11 IV: 1000ml; Total: 2000ml. rv 00:11 IV: 100ml; Total: 2100ml. rv Outcome: 00:09 Decision to Hospitalize by Provider. sp4 12:00 Admitted to ER Hold. Please see [facility] for further documentation. db 12:00 Condition: stable 12:00 Instructed on the need for admit, 15:32 Patient left the ED. db Signatures: Dispatcher [employer] EDJi Alvarez RN RN rv Rangel Montalvo RN RN Hue Cantu RN RN db Mich Trejo MD MD sp4
--- NOTE | 2023-02-13 00:09 | EDPHYS ---
Physician Documentation [facility] Name: Shivam Block Age: 57 yrs Sex: Male : 1965 Arrival Date: 02/12/2023 Time: 21:59 Bed 19 Private MD: ED Physician Mich Trejo HPI: 02/12 22:03 This 57 yrs old Male presents to ER via EMS with complaints of Gen complaint . sp4 22:31 57-year-old male with past medical history diabetes, atrial fibrillation, hypertension, sp4 NV, bilateral lower extremity below-knee amputations, seizure disorder is well on Depakote, presents with seizure at home this morning associated with fall and head injury, patient reports headache and pelvic pain.. Patient was hypotensive on arrival. . 22:38 Last admission that occurred 12/13/2022 for left lower extremity cellulitis. Which sp4 report is patient has history of atrial fibrillation on chronic anticoagulation bilateral lower extremity amputations [id number] diabetes, hypertension, seizure disorder. Patient was started on antibiotics and discharged in improved condition. There was potential findings of osteomyelitis left lower extremity. And also normocytic anemia. Patient's medications include amiodarone, apixaban, atorvastatin, gabapentin, metoprolol, sertraline, metformin, Depakote 500 mg p.o. daily, lisinopril, amlodipine, hydrocodone as needed 7.5 every 6 hours, Silvadene daily, Bactrim daily,. Historical: - Allergies: 22:03 Fish Containing Products; rv 22:03 SEAFOOD; rv - PMHx: 22:03 Atrial fibrillation; diabetes mellitus; Hypertensive disorder; Myocardial infarction; rv - PSHx: 22:03 bilateral BKA; rv - Immunization history:: Adult Immunizations up to date. - Social history:: Smoking status: Patient reports the use of cigarette tobacco products, smokes one pack cigarettes per day. - Family history:: not pertinent. ROS: 22:31 Constitutional: Negative for fever, chills, and weight loss, sp4 22:31 Constitutional: Negative for fever, chills, and weight loss, Positive headache, seizure, pelvic pain after fall 22:31 All other systems are negative, Exam: 22:31 Constitutional: This is a well developed, well nourished patient who is awake, alert, sp4 and in no acute distress. Ill-appearing male but nontoxic, no acute distress, bilateral lower extremity below-knee amputations Head/Face: Normocephalic, atraumatic. Eyes: Pupils equal round and reactive to light, extra-ocular motions intact. Lids and lashes normal. Conjunctiva and sclera are not injected. Cornea within normal limits. Periorbital areas with no swelling, redness, or edema. ENT: Nares patent. No nasal discharge, no septal abnormalities noted. Tympanic membranes are normal and external auditory canals are clear. Oropharynx with no redness, swelling, or masses, exudates, or evidence of obstruction, uvula midline. Mucous membranes moist. Neck: Trachea midline, no thyromegaly or masses palpated, and no cervical lymphadenopathy. Supple, full range of motion without nuchal rigidity, or vertebral point tenderness. Chest/axilla: Normal chest wall appearance and motion. Nontender with no deformity. No lesions are appreciated. Cardiovascular: Regular rate and rhythm with a normal S1 and S2. No gallops, murmurs, or rubs. Normal PMI, no JVD. No pulse deficits. Respiratory: Lungs have equal breath sounds bilaterally, clear to auscultation and percussion. No rales, rhonchi or wheezes noted. No increased work of breathing, no retractions or nasal flaring. Abdomen/GI: Soft, non-tender, with normal bowel sounds. No distension or tympany. No guarding or rebound. No evidence of tenderness throughout. Back: No spinal tenderness. No costovertebral tenderness. Skin: Warm, dry with normal turgor. Normal color with no rashes, no lesions, and no evidence of cellulitis. MS/ Extremity: Pulses equal, no cyanosis. Neurovascular intact. Full, normal range of motion. Bilateral lower extremity below-knee amputations Neuro: Awake and alert, GCS 15, oriented to person, place, time, and situation. Cranial nerves II-XII grossly intact. Motor strength 5/5 in all extremities. Sensory grossly intact. Psych: Awake, alert, with orientation to person, place and time. Behavior, mood, and affect are within normal limits 02/13 00:09 ECG was reviewed by the Attending Physician. EKG time 2257 there is sinus bradycardia sp4 at the rate of 59, right bundle branch block, no ST elevation or depression no ectopy Vital Signs: 02/12 22:00 BP 84 / 50; Pulse 60; Resp 16; Pulse Ox 99% on R/A; rv 22:01 BP 93 / 60; Pulse 62; Resp 17; Temp 98.1; Pulse Ox 98% ; Weight 83.91 kg; rv 22:15 BP 76 / 51; Pulse 58; Resp 17; Pulse Ox 98% on R/A; rv 22:30 BP 85 / 57; Pulse 58; Resp 17; Pulse Ox 97% on R/A; rv 22:45 BP 97 / 43; Pulse 61; Resp 16; Pulse Ox 98% on R/A; rv 23:00 BP 111 / 70; Pulse 59; Resp 12; Pulse Ox 97% ; rv 23:15 BP 107 / 62; Pulse 59; Resp 13; Pulse Ox 97% on R/A; rv 23:30 BP 116 / 63; Pulse 58; Resp 12; Pulse Ox 97% on R/A; rv 23:45 BP 117 / 64; Pulse 57; Resp 12; Pulse Ox 97% ; rv MDM: 22:27 Patient medically screened. sp4 02/13 00:10 Differential Diagnosis altered mental status, sepsis, flu. Data reviewed: vital signs, sp4 nurses notes, EMS record, old medical records, lab test result(s), EKG, radiologic studies, CT scan. Consideration of Admission/Observation Patient was admitted/placed on observation. Escalation of care including admission/observation considered. Management of patient was discussed with the following: Hospitalist: Discussed with admission the hospitalist . ED course: Patient should be admitted for monitoring secondary to significant hypotension on arrival. At this time blood pressure has improved it is 120/68.. 01:08 ED course: CT trauma assessment - FINDINGS: CT Head: There is diffuse atrophy sp4 throughout the brain parenchyma. Mild periventricular white matter changes. Mild ex vacuo dilatation of the ventricular system. There is no intra-axial or extra-axial bleed. There is no mass or mass effect. Mild streak artifact adjacent to the calvarium. The visualized paranasal sinuses and mastoid air cells are clear. No acute fracture is identified. CT cervical spine: No acute osseous abnormality identified. Osteopenic appearance of the bones. Vertebral body height and alignment are maintained. No atlantodental interval widening. Atlantoaxial alignment is maintained. The facet joints are well aligned. The posterior elements are intact. The occipital condyles are well aligned with the C1 lateral masses. The transverse foramina are intact. C2-C3: Mild right-sided neuroforaminal narrowing due to uncinate hypertrophy. No significant central canal or left-sided neuroforaminal narrowing. C3-C4: Small posterior disc protrusion. Moderate right-sided neuroforaminal narrowing due to uncinate hypertrophy. No significant central canal or left-sided neuroforaminal narrowing. C4-C5: No significant central canal or neuroforaminal narrowing. C5-C6: No significant central canal or neuroforaminal narrowing. C6-C7: No significant central canal or neuroforaminal narrowing. Paraspinal soft tissues: No significant abnormality identified. CT chest, abdomen, and pelvis: Lungs and pleura: No pulmonary consolidation or contusion. No pleural effusion. No pneumothorax. Mediastinum and neck: No mediastinal lymphadenopathy identified by CT size criteria. Unremarkable appearance of the thyroid gland. Cardiac: No cardiomegaly or pericardial effusion. No thoracic aortic aneurysm. Large amount of coronary artery calcifications. Hepatobiliary: No concerning hepatic lesion identified. Few thin calcifications in the wall of the gallbladder, which is not thickened. No biliary ductal dilatation. Pancreas: Unremarkable. Spleen: Unremarkable. Gastrointestinal: No evidence of bowel obstruction or perienteric inflammation. The appendix is normal. Moderate amount of fecal material throughout the colon.. Adrenals: No abnormality identified in either adrenal gland. Renal: No concerning parenchymal abnormality in either kidney. No hydronephrosis or urolithiasis. Bladder/Reproductive: Unremarkable appearance of the urinary bladder by CT technique. Mild prostatomegaly. Vascular/Lymphatics: No lymphadenopathy identified by CT size criteria. Abdominal aorta is normal in caliber. Mild calcific atherosclerosis. Musculoskeletal: No acute osseous abnormality is identified. Chronic fracture deformity of the left lateral third rib. Chronic healed fracture deformities of multiple right ribs. Osteopenic appearance of the bones. Grade 2 anterolisthesis at L5-S1 with chronic bilateral pars interarticularis defects at L5. Vertebral body heights are maintained. No concerning osseous lesion identified. Fluid / peritoneum: No significant free fluid. No free intraperitoneal air identified. IMPRESSION 1. No acute intracranial abnormality identified. 2. No acute osseous abnormality identified in the cervical spine. 3. No acute abnormality identified in the chest, abdomen, or pelvis. Electronically signed by: Elvira Umana MD 02/13/2023 12:35 AM. 02/12 22:08 Order name: Valproic Acid (depakote); Complete Time: 00:03 [facility] 02/12 22:08 Order name: Basic Metabolic Panel; Complete Time: 00:03 [facility] 02/12 22:08 Order name: CBC with Diff; Complete Time: 23:34 [facility] 02/12 22:08 Order name: LFT's; Complete Time: 00:03 [facility] 02/12 22:08 Order name: Magnesium; Complete Time: 00:03 [facility] 02/12 22:08 Order name: PT-INR; Complete Time: 23:34 [facility] 02/12 22:14 Order name: Lactate w/ 2H reflex if indic.; Complete Time: 00:03 [facility] 02/12 22:14 Order name: Procalcitonin; Complete Time: 01:39 [facility] 02/12 22:14 Order name: Urinalysis W/Microscopic [facility] 02/12 22:14 Order name: CRP; Complete Time: 00:03 [facility] 02/12 22:15 Order name: TSH; Complete Time: 00:03 [facility] 02/12 22:15 Order name: T4 Free; Complete Time: 00:03 [facility] 02/12 22:19 Order name: COVID-19 SARS RT PCR; Complete Time: 23:34 02/12 22:19 Order name: Influenza Screen (a \T\ B); Complete Time: 00:03 02/13 00:52 Order name: Urinalysis w/ reflexes [facility] 02/13 02:14 Order name: Lactate Sepsis 2 HR Follow-up; Complete Time: 05:12 [facility] 02/13 07:52 Order name: Glucose, Ancillary Testing [facility] 02/13 08:40 Order name: Basic Metabolic Panel [facility] 02/13 08:40 Order name: Creatine Phosphokinase [facility] 02/13 11:44 Order name: Glucose, Ancillary Testing [facility] 02/12 23:44 Order name: Head C Spine Cap Wo Con [facility] 02/12 23:54 Order name: EKG; Complete Time: 23:55 02/12 22:08 Order name: Cardiac monitoring; Complete Time: 22:17 [facility] 02/12 22:08 Order name: IV Saline Lock; Complete Time: 22:17 [facility] 02/12 22:08 Order name: Labs collected and sent; Complete Time: 22:17 sp4 02/12 22:08 Order name: O2 Per Protocol; Complete Time: 22:17 sp4 02/12 22:08 Order name: O2 Sat Monitoring; Complete Time: 22:17 sp4 02/12 22:34 Order name: Misc. Order: RECOLLECT ALL LABS; Complete Time: 22:48 rv1 EC:09 Rate is 59 beats/min. Rhythm is regular, Sinus bradycardia. QRS [place] is Normal. LA sp4 interval is normal. QRS interval is prolonged. QT interval is normal. No Q waves. T waves are Normal. No ST changes noted. Clinical impression: No evidence of ischemia. Interpreted by me. Administered Medications: 02/12 22:15 Drug: NS 0.9% IV 1000 ml IV at 1 bolus Per protocol; 1000 mL bolus Route: IV; Rate: 1 rv bolus; Site: right antecubital; 02/13 00:11 Follow up: IV Status: Completed infusion; IV Intake: 1000ml rv 02/12 22:15 Drug: Albumin IVPB 25 grams 100 ml IVPB once; (Note: Albumin 25% concentration) Volume: rv 100 ml; Route: IVPB; Site: right antecubital; 02/13 00:11 Follow up: IV Status: Completed infusion; IV Intake: 100ml rv 02/12 22:50 Drug: NS 0.9% IV 1000 ml IV at 1 bolus Per protocol; 1000 mL bolus Route: IV; Rate: 1 rv bolus; Site: left forearm; 02/13 00:11 Follow up: IV Status: Completed infusion; IV Intake: 1000ml rv 02/12 23:20 Drug: midodrine 5 mg Feeding Tube once; Give PO 5 mg one time dose in ER Route: Feeding rv Tube; 02/13 00:11 Follow up: Response: No adverse reaction rv 00:18 Drug: Valproic Acid IV 500 mg IV at calculated rate once over 60 mins; (mix in 100 mL rv NS) Route: IV; Rate: calculated rate; Infused Over: 60 mins; Site: left forearm; Disposition Summary: 02/13/23 00:09 Hospitalization Ordered Notes: Hospitalization Status: Observation sp4 Provider: Juan Carlos Hernandez sp4 Condition: Stable sp4 Problem: new sp4 Symptoms: have improved sp4 Bed/Room Type: Standard sp4 Location: Telemetry/MedSurg (observation)(02/13/23 14:53) ja1 Room Assignment: 406(02/13/23 14:53) ja Diagnosis - Other seizures sp4 - Breakthrough seizure, fall at home, acute headache, hypotensive episode, near sp4 syncope Forms: - Medication Reconciliation Form sp4 - SBAR form sp4 - Leadership Thank You Letter sp4 Signatures: Dispatcher [employer] EDMS Cary Ortiz, RN RN Cash Jacobsen, RN RN ja1 Ji Stephen, RN RN rv Annelise Garcia rv1 Mich Trejo MD MD sp4 Corrections: (The following items were deleted from the chart) 02/12 23:44 22:13 Head C Spine CAP W Con+CT.RAD.BRZ ordered. EDMS EDMS 02/13 00:47 02/12 22:14 COVID-19/FLU A+B+MOL.LAB.BRZ ordered. EDMS EDMS 02/13 01:02 00:09 Telemetry/MedSurg (observation) sp4 01:02 00:09 sp4 14:53 01:02 [facility] ER HOLD cg ja 14:53 01:02 ERHOLD- cg [facility] er
[2023-02-13] MEDS ORDERED: NA CHLORIDE 0.9% 100 ML ONE (00:29)
[2023-02-13] MEDS ORDERED: VALPROATE NA 500 MG/5 ML INJ IV ONE (00:29)
--- NOTE | 2023-02-13 00:46 | P.HP ---
Certification for Inpatient Patient admitted to: Observation With expected LOS: <2 Midnights Practitioner: I am a practitioner with admitting privileges, knowledge of patient current condition, hospital course, and medical plan of care. Services: Services provided to patient in accordance with Admission requirements found in Title 42 Section 412.3 of the Code of Federal Regulations Patient History Date of Service: 02/13/23 Reason for admission: Seizures, low blood pressure History of Present Illness: 57-year-old male patient with medical history significant for diabetes type 2, hypertension, hyperlipidemia, history of seizure disorder, chronic atrial fibrillation who was evaluated for episode of low blood pressure and suspected seizures. Patient has had issues with alteration in mentation and suspected seizures prior insulin production in the emergency room. On initial evaluation he was found to have low blood pressure episode episodes with elevated lactic acid and he was given fluid boluses. He had significant improvement in blood pressure reads and his mentation has improved significantly. Imaging studies and was not overly concerning. He was asked to be of observed due to his low blood pressure episode. No reports of head injury, fever, chills, rigor, nausea, vomiting, diarrhea prior to initial evaluation. Labs done revealed low valproic acid level in bloodstream. Allergies shellfish derived Allergy (Verified 09/27/22 19:33) Itching/Hives/Rash Home Medications: Amiodarone HCl [Cordarone*] 200 mg PO DAILY 08/15/22 Apixaban [Eliquis] 5 mg PO BID 08/15/22 Atorvastatin Calcium 40 mg PO BEDTIME 08/15/22 Gabapentin 400 mg PO TID 08/15/22 Metoprolol Tartrate 25 mg PO BID 08/15/22 Sertraline [Zoloft*] 125 mg PO DAILY 08/15/22 Metformin HCl [Glucophage*] 500 mg PO BIDWM #60 tab 09/21/22 Divalproex Sodium [Depakote] 500 mg PO DAILY 12/11/22 Lisinopril [Zestril] 2.5 mg PO DAILY 12/11/22 Amlodipine [Norvasc*] 5 mg PO DAILY #30 tab 12/13/22 Hydrocodone 7.5/APAP 325 [[place] 7.5/325 mg*] 1 tab PO Q6H PRN #30 tab 12/13/22 Silver Sulfadiazine [Silvadene 1% Cream] 1 appl TOP DAILY #1 tube 12/13/22 Sulfamethoxazole/Trimethoprim [Bactrim Ds Tablet] 1 each PO BID #20 tab 12/13/22 - Past Medical/Surgical History Diabetic: Yes -: Afib -: HTN -: DM II -: CAD/ Hx [facility] -: CKD II (Dr. Mendez/ Dr. Wallace) -: bilateral BKA Psychosocial/ Personal History: Patient lives at home with his aunt - Family History Mother -: Heart disease, Diabetes, Cancer Father -: Heart disease - Social History Alcohol use: No CD- Drugs: No Caffeine use: Yes Review of Systems General: Weakness, Malaise Eyes: Unremarkable ENT: Unremarkable Respiratory: Unremarkable Cardiovascular: Unremarkable Gastrointestinal: Unremarkable Genitourinary: Unremarkable Musculoskeletal: Unremarkable Integumentary: Unremarkable Neurological: Confusion, Seizures Physical Examination - Physical Exam General: Alert HEENT: Atraumatic, Normocephalic Neck: Supple Respiratory: Normal air movement Cardiovascular: Regular rate/rhythm, Normal S1 S2 Gastrointestinal: Soft and benign Musculoskeletal: No swelling Neurological: Normal speech, Normal strength at 5/5 x4 extr - Studies Laboratory Data (last 24 hrs) 02/12/23 02/12/23 02/12/23 22:38 22:38 22:38 WBC 5.00 Hgb 9.8 L Hct 28.9 L Plt Count 233 PT 12.3 INR 1.12 Sodium 138 Potassium 4.9 BUN 29 H Creatinine 1.61 H Glucose 138 H Magnesium 1.8 Total Bilirubin 0.2 AST < 4 L ALT 14 L Alkaline Phosphatase 60 Microbiology Data (last 24 hrs): 02/12/23 22:29 Nasopharnyx Influenza Type A Antigen Screen - Final 02/12/23 22:29 Nasopharnyx Influenza Type B Antigen Screen - Final Assessment and Plan - Plan Seizures: Low valproic acid level noted. There is suspicion for possible medication noncompliance/subtherapeutic dose. We will monitor on seizure precaution. Continue antiseizure medications as outpt. As needed lorazepam to use for seizure breakthrough. EEG to be obtained. We will have neurologist evaluate pt. Elevated lactic acid: Deemed secondary to seizure episode. IV fluid bolus was given and lactic acid trended up from 2.32 within normal limit. We will monitor closely History of hypertension: Patient was hypotensive on initial evaluation. We will continue associatively for management of low blood pressure and monitor vitals per unit protocol. We will hold all antihypertensive medications at this time. Diabetes type 2: We will have on carb restricted diet and sliding scale insulin for glucose control. Chronic atrial fibrillation: We will continue Eliquis for anticoagulation. Prophylaxis: Eliquis for DVT prophylaxis and A-fib anticoagulation CODE STATUS: Full code Disposition: We will monitor's for possible recurrence of seizures, rule out underlying infectious process and discharge him when he is clinically stable - Advance Directives Does patient have a Living Will: No Does patient have a Durable POA for Healthcare: No
[2023-02-13] MEDS ORDERED: ONDANSETRON 4 MG/2 ML VIAL IV PRN (00:48)
[2023-02-13] MEDS ORDERED: ACETAMINOPHEN 325 MG TABLET PO PRN (00:48)
[2023-02-13] MEDS: NA CHLORIDE 0.9% 1,000 ML IV SCH ×3 (01:00→19:02)
[2023-02-13] MEDS ORDERED: NA CHLORIDE 0.9% 1,000 ML ONE (01:58)
[2023-02-13] MEDS: INSULIN REGULAR (HUMAN) 100 UNIT/ML SQ SCH ×4 (07:30→19:44)
--- NOTE | 2023-02-13 07:57 | EKG ---
Test Date: 2023-02-12 Test Time: 22:57:59 Scrap Shear Operator: RV MEASUREMENT RESULTS: Intervals: Rate: 59 [place]: 184 QRSD: 134 QT: 426 QTc: 421 [place]: P: 51 [place]: 184 QRS: 249 T: -5 INTERPRETIVE STATEMENTS: Sinus bradycardia Right bundle branch block Lateral infarct, age undetermined Inferior infarct, age undetermined Abnormal ECG Compared to ECG 01/25/2023 15:20:47 Right bundle-branch block now present Sinus rhythm no longer present Myocardial infarct finding still present Electronically Signed On 02-13-23 07:56:44 CDT by Natanael Watson
[2023-02-13] MEDS ORDERED: INFLUENZA VACCINE (for 6+ mo) 0.5 ML DOSE IMVAC ONE (08:00)
[2023-02-13 08:40] LABS: Potassium 5.4 mEq/L (3.5-5.1)
[2023-02-13] MEDS ORDERED: ENOXAPARIN 40 MG/0.4 ML SQ SCH (09:00)
[2023-02-13] MEDS: APIXABAN 5 MG TABLET PO SCH ×2 (09:00→19:45)
[2023-02-13] MEDS ORDERED: APIXABAN 5 MG TABLET ONE (10:36)
--- NOTE | 2023-02-13 14:57 | RAD REPORT ---
EXAM DESCRIPTION: Head C SPine CAP WO C CLINICAL HISTORY: Fall , head injury. TECHNIQUE: Noncontrast CT through the head was performed. Axial, coronal, and sagittal reconstructio ns were created and sent to PACS. CT of the cervical spine was performed without contrast. Axial, coronal, and sagittal reconstructions were created and sent to PACS. CT of the chest, abdomen, and pelvis was performed without contrast. Axial, coronal, and sagittal rec onstructions were created and sent to PACS. These exams were performed according to our departmental dose-optimization program which includes use of Automated Exposure Control, adjustment of the mA and/or kV according to patient size and/or use o f iterative reconstruction technique. COMPARISON: None. FINDINGS: CT Head: There is diffuse atrophy throughout the brain parenchyma. Mild periventricular white matter changes. Mild ex vacuo dilatation of the ventricular system. There is no intra-axial or extra-axial bleed. The re is no mass or mass effect. Mild streak artifact adjacent to the calvarium. The visualized paranasal sinuses and mastoid air cells are clear. No acute fracture is identified. CT cervical spine: No acute osseous abnormality identified. Osteopenic appearance of the bones. Vertebral body height an d alignment are maintained. No atlantodental interval widening. Atlantoaxial alignment is maintained. The facet joints are well aligned. The posterior elements are intact. The occipital condyles are wel l aligned with the C1 lateral masses. The transverse foramina are intact. C2-C3: Mild right-sided neuroforaminal narrowing due to uncinate hypertrophy. No significant central canal or left-sided neuroforaminal narrowing. C3-C4: Small posterior disc protrusion. Moderate right-sided neuroforaminal narrowing due to uncinate hypertrophy. No significant central canal or left-sided neuroforaminal narrowing. C4-C5: No significant central canal or neuroforaminal narrowing. C5-C6: No significant central canal or neuroforaminal narrowing. C6-C7: No significant central canal or neuroforaminal narrowing. Paraspinal soft tissues: No significant abnormality identified. CT chest, abdomen, and pelvis: Lungs and pleura: No pulmonary consolidation or contusion. No pleural effusion. No pneumothorax. Mediastinum and neck: No mediastinal lymphadenopathy identified by CT size criteria. Unremarkable balaji earance of the thyroid gland. Cardiac: No cardiomegaly or pericardial effusion. No thoracic aortic aneurysm. Large amount of velas[place] ry artery calcifications. Hepatobiliary: No concerning hepatic lesion identified. Few thin calcifications in the wall of the ga llbladder, which is not thickened. No biliary ductal dilatation. Pancreas: Unremarkable. Spleen: Unremarkable. Gastrointestinal: No evidence of bowel obstruction or perienteric inflammation. The appendix is sarita l. Moderate amount of fecal material throughout the colon.. Adrenals: No abnormality identified in either adrenal gland. Renal: No concerning parenchymal abnormality in either kidney. No hydronephrosis or urolithiasis. Bladder/Reproductive: Unremarkable appearance of the urinary bladder by CT technique. Mild prostatome bowen. Vascular/Lymphatics: No lymphadenopathy identified by CT size criteria. Abdominal aorta is normal in caliber. Mild calcific atherosclerosis. Musculoskeletal: No acute osseous abnormality is identified. Chronic fracture deformity of the left l ateral third rib. Chronic healed fracture deformities of multiple right ribs. Osteopenic appearance o f the bones. Grade 2 anterolisthesis at L5-S1 with chronic bilateral pars interarticularis defects at L5. Vertebral body heights are maintained. No concerning osseous lesion identified. Fluid / peritoneum: No significant free fluid. No free intraperitoneal air identified. IMPRESSION 1. No acute intracranial abnormality identified. 2. No acute osseous abnormality identified in the cervical spine. 3. No acute abnormality identified in the chest, abdomen, or pelvis. Electronically signed by: Elvira Umana MD 02/13/2023 12:35 AM CDT Due to temporary technical issues with the PACS/Fluency reporting system, reports are being signed by the in house radiologists without review as a courtesy to insure prompt reporting. The interpreting radiologist is fully responsible for the content of the report.
[2023-02-14] MEDS: NA CHLORIDE 0.9% 1,000 ML IV SCH (02:19)
[2023-02-14 02:29] VITALS: BMI 56.3
[2023-02-14 07:09] LABS: Absolute Lymphocytes (CBC) 1.2 K/uL (0.7-4.9); Hematocrit 33.8 % (39.6-49.0); Lymphocytes % 23.2 % (15.3-44.8); MCV 90.7 fL (80-100); MPV 8.1 fL (7.6-11.3); Platelets 259 thou/uL (152-406); RBC Red Blood Cell Count 3.72 M/uL (4.33-5.43)
[2023-02-14 07:25] LABS: Potassium 5.2 mEq/L (3.5-5.1)
[2023-02-14] MEDS: INSULIN REGULAR (HUMAN) 100 UNIT/ML SQ SCH ×2 (07:30→11:30)
[2023-02-14] MEDS: APIXABAN 5 MG TABLET PO SCH (08:00)
[2023-02-14] MEDS ORDERED: DIVALPROEX DR 500MG TAB PO SCH ×2 (09:00→21:00)
--- NOTE | 2023-02-14 10:50 | P.DS ---
Admission Date: 02/13/23 Discharge Date: 02/14/23 Reason for Admission: Seizures, low blood pressure Consultations: NeurologyDr. Aguilera Brief History of Present Illness: Patient was admitted to the hospital for seizures, elevated lactic acid, low blood pressure. Hospital Course: You presented to the emergency department for seizures, your valproic acid level was checked and found to be subtherapeutic. You reported that you have been taking your Depakote 5 mg twice daily at home consistently. We discussed this with the neurologist who recommended we increase the dose of your Depakote from 500 mg twice daily to 750 mg twice daily. You have had no further seizure activity since you have been in the hospital, you will be discharged to follow- up outpatient with neurology and your increased dose of Depakote will be sent to your pharmacy. <Brian Herrera - Last Filed: 02/14/23 10:49> Admission Date: 02/13/23 Discharge Date: 02/14/23 Hospital Course: He is doing well this morning. No recurrent episodes of seizures. Per Dr. Aguilera, he recommended increasing dose of valproic acid from 500 mg to 750 mg. Of note, he also had an acute kidney injury, which resolved. It is suspected that his lactic acidosis and elevated procalcitonin were secondary to his seizure episode. He was advised to follow-up with his PCP and Neurology on discharge. <Donaldo Bragg - Last Filed: 02/14/23 18:50> Disposition: ROUTINE DISCHARGE Discharge Condition: GOOD Vital Signs/Physical Exam: Temp Pulse Resp BP Pulse Ox 97.7 F 59 16 135/67 99 02/14/23 08:00 02/14/23 08:00 02/14/23 08:00 02/14/23 08:00 02/14/23 08:00 General: Alert, In no apparent distress, Oriented x3 HEENT: Atraumatic, PERRLA, EOMI Neck: Supple, JVD not distended Respiratory: Clear to auscultation bilaterally, Normal air movement Cardiovascular: Regular rate/rhythm, Normal S1 S2 Gastrointestinal: Normal bowel sounds, No tenderness Integumentary: No rashes Neurological: Normal speech, Normal tone, Normal affect Lymphatics: No axilla or inguinal lymphadenopathy Laboratory Data at Discharge: WBC 5.00 thou/uL (4.3-10.9) 02/14/23 06:50 Hgb 11.4 g/dL (13.6-17.9) L 02/14/23 06:50 Hct 33.8 % (39.6-49.0) L 02/14/23 06:50 Plt Count 259 thou/uL (152-406) 02/14/23 06:50 PT 12.3 SECONDS (9.5-12.5) 02/12/23 22:38 INR 1.12 02/12/23 22:38 Sodium 136 mEq/L (136-145) 02/14/23 06:50 Potassium 5.2 mEq/L (3.5-5.1) H 02/14/23 06:50 BUN 18 mg/dL (7-18) 02/14/23 06:50 Creatinine 0.93 mg/dL (0.70-1.30) 02/14/23 06:50 Glucose 116 mg/dL (74-106) H 02/14/23 06:50 Magnesium 1.8 mg/dL (1.6-2.4) 02/12/23 22:38 Total Bilirubin 0.2 mg/dL (0.2-1.0) 02/12/23 22:38 AST < 4 U/L (15-37) L 02/12/23 22:38 ALT 14 U/L (16-61) L 02/12/23 22:38 Alkaline Phosphatase 60 U/L (45-117) 02/12/23 22:38 <Brian Herrera - Last Filed: 02/14/23 10:49> Vital Signs/Physical Exam: Temp Pulse Resp BP Pulse Ox 97.5 F 62 17 118/56 L 97 02/14/23 12:00 02/14/23 12:00 02/14/23 12:00 02/14/23 12:00 02/14/23 12:00 Laboratory Data at Discharge: WBC 5.00 thou/uL (4.3-10.9) 02/14/23 06:50 Hgb 11.4 g/dL (13.6-17.9) L 02/14/23 06:50 Hct 33.8 % (39.6-49.0) L 02/14/23 06:50 Plt Count 259 thou/uL (152-406) 02/14/23 06:50 PT 12.3 SECONDS (9.5-12.5) 02/12/23 22:38 INR 1.12 02/12/23 22:38 Sodium 136 mEq/L (136-145) 02/14/23 06:50 Potassium 5.2 mEq/L (3.5-5.1) H 02/14/23 06:50 BUN 18 mg/dL (7-18) 02/14/23 06:50 Creatinine 0.93 mg/dL (0.70-1.30) 02/14/23 06:50 Glucose 116 mg/dL (74-106) H 02/14/23 06:50 Magnesium 1.8 mg/dL (1.6-2.4) 02/12/23 22:38 Total Bilirubin 0.2 mg/dL (0.2-1.0) 02/12/23 22:38 AST < 4 U/L (15-37) L 02/12/23 22:38 ALT 14 U/L (16-61) L 02/12/23 22:38 Alkaline Phosphatase 60 U/L (45-117) 02/12/23 22:38 <Donaldo Bragg - Last Filed: 02/14/23 18:50> Diet: AHA Activity: Fall precautions Time spent managing pt's care (in minutes): 30 <Brian Herrera - Last Filed: 02/14/23 10:49> <Donaldo Bragg - Last Filed: 02/14/23 18:50> Home Medications: RX: Amiodarone HCl [Cordarone*] 200 mg PO DAILY 08/15/22 RX: Apixaban [Eliquis] 5 mg PO BID 08/15/22 RX: Atorvastatin Calcium 40 mg PO BEDTIME 08/15/22 RX: Gabapentin 400 mg PO TID 08/15/22 RX: Metoprolol Tartrate 25 mg PO BID 08/15/22 RX: Sertraline [Zoloft*] 125 mg PO DAILY 08/15/22 RX: Metformin HCl [Glucophage*] 500 mg PO BIDWM #60 tab 09/21/22 RX: Lisinopril [Zestril] 2.5 mg PO DAILY 12/11/22 RX: Amlodipine [Norvasc*] 5 mg PO DAILY #30 tab 12/13/22 RX: Hydrocodone 7.5/APAP 325 [[place] 7.5/325 mg*] 1 tab PO Q6H PRN #30 tab 12/13/22 Divalproex Sodium [Depakote] 750 mg PO BID #90 tab 02/14/23 New Medications: Divalproex Sodium [Depakote] 750 mg PO BID #90 tab Physician Discharge Instructions: You presented to the emergency department for seizures, your valproic acid level was checked and found to be subtherapeutic. You reported that you have been taking your Depakote 5 mg twice daily at home consistently. We discussed this with the neurologist who recommended we increase the dose of your Depakote from 500 mg twice daily to 750 mg twice daily. You have had no further seizure activity since you have been in the hospital, you will be discharged to follow- up outpatient with neurology and your increased dose of Depakote will be sent to your pharmacy. Followup: Thad Aguilera MD [ASSOCIATE-ACTIVE - CAN ADMIT] - 1-2 Weeks (call to schedule an appointment)
[2023-02-14 10:52] VITALS: O2SAT 99
[2023-02-14 12:20] VITALS: BP 118/56; TEMP 97.5
== END 2023-02-14 13:18 | disposition home or self-care (01) ==
LOC: ER 21:59 → ERHOLD 02-13 00:48 → 4TH 02-13 15:06
PROVIDERS: ADMIT Internal Medicine Nephrology; ATTEND Internal Medicine
DX: R56.9 Unspecified convulsions (principal); I95.9 Hypotension, unspecified; E11.9 Type 2 diabetes mellitus without complications; I10 Essential (primary) hypertension; E78.5 Hyperlipidemia, unspecified; I48.11 Longstanding persistent atrial fibrillation; Z79.01 Long term (current) use of anticoagulants; Z91.013 Allergy to seafood; R74.02 Elevation of levels of lactic acid dehydrogenase [LDH]; N17.9 Acute kidney failure, unspecified; E87.20 Acidosis, unspecified
CPT/HCPCS: 96365; 93005; 85025 ×2; 80048 ×3; 36415 ×3; 83735; 82550; 84132; 85610; 82947 ×6; 80076; 80164; 83605 ×2; 84443; 84439; 84145; 87635; 86140; 87804 ×2; 70450; 71250; 72125; 96375; 99285; 96366; P9047; J7030 ×4; G0378 ×4

== ENCOUNTER 2023-03-07 19:51 | Emergency (ER) | payer OTHER ==
--- NOTE | 2023-03-07 20:15 | RAD REPORT ---
EXAM DESCRIPTION: RAD - Chest Single View - 03/07/2023 8:08 pm CLINICAL HISTORY: ABDOMINAL DISTENTION Chest pain. COMPARISON: Chest Single View dated 01/25/2023; Chest Single View dated 12/05/2022; Chest Single View dated 09/27/2022; Chest Single View dated 09/18/2022 FINDINGS: Portable technique limits examination quality. The lungs are emphysematous but grossly clear. The heart is normal in size. No displaced fractures. IMPRESSION: No acute intrathoracic process suspected. Mild COPD.
[2023-03-07] MEDS ORDERED: NA CHLORIDE 0.9% 1,000 ML ONE (20:20)
--- OUTSIDE RECORDS SUMMARY | 2023-03-07 20:21 | XMS REPORT | Continuity of Care Document ---
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 in [place] 00 the Medical morning. Branch amiodarone 2022-0 Yes [id number] 200mg Take 1 [facility] 200 mg 8-18 tablet by ity of tablet 00:00: mouth in [place] 00 the Medical morning. Branch apixaban 5 2022-0 Yes 5mg Take 1 Unive rs mg tablet 8-18 tablet by ity o f 00:00: mouth in [place] 00 the Medical morning Branch and 1 tablet in the evening. Indication s: ATRIAL FIBRILLATI ON atorvastati 2022- Yes [id number] 40mg Take 1 [facility] n 40 mg 8-18 tablet by ity of tablet 00:00: mouth at [place] 00 bedtime. Medical Branch Bifidobacte 0 Yes [id number] 4mg Take 1 [facility] rium 8-18 capsule by ity of Infantis 00:00: mouth in [place] (ALIGN) 4 00 the Medical mg capsule morning. Bran h gabapentin 2022-0 Yes [id number] 400mg Take 1 [facility] 400 mg 8-18 capsule by ity of capsule 00:00: mouth in [place] 00 the Medical morning Branch and 1 capsule at noon and 1 capsule in the evening. lisinopriL 0 Yes [id number] 2.5mg Take 1 [facility] 2.5 mg 8-18 tablet by ity of tablet 00:00: mouth in [place] 00 the Medical morning. Branch metFORMIN Yes [id number] 500mg Take 1 [facility] 500 mg 8-18 tablet by ity of tablet 00:00: mouth in [place] 00 the Medical morning Branch and 1 tablet in the evening. Take with meals. metoprolol 0 Yes [id number] 25mg Take 1 U nivers tartrate 25 8-18 tablet by ity of mg tablet 00:00: mouth [facility] the Medical morning Branch and 1 tablet in the evening. SERTraline Yes [id number] 25mg Take 1 [facility] 25 mg 8-18 tablet by ity of tablet 00:00: mouth in [place] 00 the Medical morning. Branch amiodarone Yes [id number] 200mg Take 1 [facility] 200 mg 8-18 tablet by ity of tablet 00:00: mouth in [place] 00 the Medical morning. Branch insulin 2022- No [id number] 14U inject 14 [facility] glargine 8-18 08-28 Units ity of (SEMGLEE 00:00: 00:00 under the [place] U-100 00 :00 skin in Medical INSULIN) the Branch 100 unit/mL morning. injection insulin 2022- No [id number] 14U inject 14 [facility] glargine 8-18 08-28 Units ity of (SEMGLEE 00:00: 00:00 under the [place] U-100 00 :00 skin in Medical INSULIN) the Branch 100 unit/mL morning. injection SEMGLEE,INS 2022- No 14U inject 14 [facility] ULIN 7-19 07-19 Units ity of GLARGINE-YF 14:32: 00:00 under the [facility], [place] :00 skin in [facility] morning. As directed SEMGLEE,INS 2022- No 14U inject 14 [facility] ULIN 7-19 07-19 Units ity of GLARGINE-YF 14:32: 00:00 under the [facility], [place] :00 skin in [facility] morning. As directed SEMGLEE,INS 2022- No 14U inject 14 [facility] ULIN 7-19 07-19 Units ity of GLARGINE-YF 14:32: 00:00 under the [facility], [place] :00 skin in [facility] morning. As directed SEMGLEE,INS 2022- No 14U inject 14 [facility] ULIN 7-19 07-19 Units ity of GLARGINE-YF 14:32: 00:00 under the [facility], [place] :00 skin in [facility] morning. As directed divalproex Yes [id number] 500mg Take 1 [facility] ER 500 mg 7-19 tablet by ity o f 24 hr 00:00: mouth [place] tablet 00 every 24 Medical (twenty-fo [place] ur) hours. insulin Yes [id number] 14U inject 14 [facility] glargine 7-19 Units ity of (SEMGLEE 00:00: under the [facility] s U-100 00 skin in Medical INSULIN) [facility] 100 unit/mL morning. injection amiodarone Yes [id number] 200mg Take 1 [facility] 200 mg 7-19 tablet by ity of tablet 00:00: mouth in [place] [address] the Medical morning. Branch apixaban 5 Yes 5mg Take 1 Unive rs mg tablet 7-19 tablet by ity o f 00:00: mouth in [place] [address] the Medical morning Branch and 1 tablet in the evening. Indication s: ATRIAL FIBRILLATI ON metFORMIN Yes [id number] 500mg Take 1 [facility] 500 mg 7-19 tablet by ity of tablet 00:00: mouth in [place] [address] the Medical morning Branch and 1 tablet in the evening. Take with meals. divalproex Yes [id number] 500mg Take 1 [facility] ER 500 mg 7-19 tablet by ity o f 24 hr 00:00: mouth [place] tablet 00 every 24 Medical (twenty-fo Branch ur) hours. insulin 2022-0 Yes [id number] 14U inject 14 [facility] glargine 7-19 Units ity of (SEMGLEE 00:00: [place] U-[place] skin in Medical INSULIN) the Branch 100 unit/mL morning. injection amiodarone 2022-0 Yes [id number] 200mg Take 1 [facility] 200 mg 7-19 tablet by ity of tablet 00:00: mouth in [place] 00 the Medical morning. Branch apixaban 5 2022-0 Yes 5mg Take 1 Unive rs mg tablet 7-19 tablet by ity o f 00:00: mouth in [place] 00 the Medical morning Branch and 1 tablet in the evening. Indication s: ATRIAL FIBRILLATI ON metFORMIN 2022-0 Yes [id number] 500mg Take 1 [facility] 500 mg 7-19 tablet by ity of tablet 00:00: mouth in [place] 00 the Medical morning Branch and 1 tablet in the evening. Take with meals. divalproex 2022-0 Yes [id number] 500mg Take 1 [facility] ER 500 mg 7-19 tablet by ity o f 24 hr 00:00: mouth [place] tablet 00 every 24 Medical (twenty-fo Branch ur) hours. insulin 2022-0 Yes [id number] 14U inject 14 [facility] glargine 7-19 Units ity of (SEMGLEE 00:00: [place] U-[place] skin in Medical INSULIN) the Branch 100 unit/mL morning. injection amiodarone 2022-0 Yes [id number] 200mg Take 1 [facility] 200 mg 7-19 tablet by ity of tablet 00:00: mouth in [place] 00 the Medical morning. Branch apixaban 5 2022-0 Yes 5mg Take 1 [facility] rs mg tablet 7-19 tablet by ity o f 00:00: mouth in [place] 00 the Medical morning Branch and 1 tablet in the evening. Indication s: ATRIAL FIBRILLATI ON metFORMIN 2022-0 Yes [id number] 500mg Take 1 [facility] 500 mg 7-19 tablet by ity of tablet 00:00: mouth in [place] 00 the Medical morning Branch and 1 tablet in the evening. Take with meals. divalproex 2023-0 Yes [id number] 500mg Take 1 [facility] ER 500 mg 7-19 tablet by ity o f 24 hr 00:00: mouth [place] tablet 00 every 24 Medical (twenty-fo Branch ur) hours. divalproex 2023-0 Yes [id number] 500mg Take 1 [facility] ER 500 mg 7-19 tablet by ity o f 24 hr 00:00: mouth [place] tablet 00 every 24 Medical (twenty-fo Branch ur) hours. divalproex 2023-0 Yes [id number] 500mg Take 1 [facility] ER 500 mg 7-19 tablet by ity o f 24 hr 00:00: mouth [place] tablet 00 every 24 Medical (twenty-fo Branch ur) hours. divalproex 2023-0 Yes [id number] 500mg Take 1 [facility] ER 500 mg 7-19 tablet by ity o f 24 hr 00:00: mouth [place] tablet 00 every 24 Medical (twenty-fo Branch ur) hours. divalproex 2023-0 Yes [id number] 500mg Take 1 [facility] ER 500 mg 7-19 tablet by ity o f 24 hr 00:00: mouth [place] tablet 00 every 24 Medical (twenty-fo Branch ur) hours. divalproex 2023-0 Yes [id number] 500mg Take 1 [facility] ER 500 mg 7-19 tablet by ity o f 24 hr 00:00: mouth [place] tablet 00 every 24 Medical (twenty-fo Branch ur) hours. divalproex 2023-0 Yes [id number] 500mg Take 1 [facility] ER 500 mg 7-19 tablet by ity o f 24 hr 00:00: mouth [place] tablet 00 every 24 Medical (twenty-fo Branch ur) hours. divalproex 2023-0 Yes [id number] 500mg Take 1 [facility] ER 500 mg 7-19 tablet by ity o f 24 hr 00:00: mouth [place] tablet 00 every 24 Medical (twenty-fo Branch ur) hours. divalproex 2023-0 Yes [id number] 500mg Take 1 [facility] ER 500 mg 7-19 tablet by ity o f 24 hr 00:00: mouth [place] tablet 00 every 24 Medical (twenty-fo Branch ur) hours. divalproex 2023-0 Yes [id number] 500mg Take 1 [facility] ER 500 mg 7-19 tablet by ity o f 24 hr 00:00: mouth [place] tablet 00 every 24 Medical (twenty-fo Branch ur) hours. insulin 2023-0 2023- No [id number] 14U inject 14 [facility] glargine 7-19 08-18 Units ity of (SEMGLEE 00:00: 00:00 under the [place] U-100 00 :00 skin in Medical INSULIN) the Branch 100 unit/mL morning. injection amiodarone 2022- No [id number] 200mg Take 1 [facility] 200 mg -07 12-18 tablet by ity of tablet 00:00: 00:00 mouth in [place] 00 :00 the Medical morning. Branch apixaban 5 2022- No 5mg Take 1 Univ ers mg tablet 11-06-18 tablet by ity of 00:00: 00:00 mouth in [place] 00 :00 the Medical morning Branch and 1 tablet in the evening. Indication s: ATRIAL FIBRILLATI ON metFORMIN 2022- No [id number] 500mg Take 1 [facility] 500 mg 7-07 12-18 tablet by ity of tablet 00:00: 00:00 mouth in [place] 00 :00 the Medical morning Branch and 1 tablet in the evening. Take with meals. insulin 2022- No [id number] 14U inject 14 [facility] glargine 11-06-18 Units ity of (SEMGLEE 00:00: 00:00 under the [place] U-100 00 :00 skin in Medical INSULIN) the Branch 100 unit/mL morning. injection amiodarone 2022- No [id number] 200mg Take 1 [facility] 200 mg 11-06-18 tablet by ity of tablet 00:00: 00:00 mouth in [place] 00 :00 the Medical morning. Branch apixaban 5 2022- No 5mg Take 1 Univ ers mg tablet 11-06-18 tablet by ity of 00:00: 00:00 mouth in [place] 00 :00 the Medical morning Branch and 1 tablet in the evening. Indication s: ATRIAL FIBRILLATI ON metFORMIN 2022-2022- No [id number] 500mg Take 1 [facility] 500 mg 7-07 12-18 tablet by ity of tablet 00:00: 00:00 mouth in [place] 00 :00 the Medical morning Branch and 1 tablet in the evening. Take with meals. DIVALPROEX 2022- Yes [id number] TAKE 1 [facility] ER 500 mg 6-30 TABLET BY ity o f 24 hr 00:00: MOUTH [place] tablet 00 EVERY 24 Medical HOURS Branch DIVALPROEX 2023-0 3- No [id number] TAKE 1 [facility] ER 500 mg 6-30 07-19 TABLET BY ity of 24 hr 00:00: 00:00 MOUTH [place] tablet 00 :00 EVERY 24 Medical HOURS Branch DIVALPROEX 2023-0 2023- No [id number] TAKE 1 [facility] ER 500 mg 6-30 07-19 TABLET BY ity of 24 hr 00:00: 00:00 MOUTH [place] tablet 00 :00 EVERY 24 Medical HOURS Branch DIVALPROEX 2023-0 2023- No [id number] TAKE 1 [facility] ER 500 mg 6-30 -19 TABLET BY ity of 24 hr 00:00: 00:00 MOUTH [place] tablet 00 :00 EVERY 24 Medical HOURS Branch DIVALPROEX 2023-0 2023- No [id number] TAKE 1 [facility] ER 500 mg 6-30 -19 TABLET BY ity of 24 hr 00:00: 00:00 MOUTH [place] tablet 00 :00 EVERY 24 Medical HOURS Branch blood sugar 2023-0 Yes [id number] Check U nivers diagnostic 6-07 blood ity of strip 00:00: sugar 2 [place] 00 times a Medical day. Branch E11.9. Brand per insurance. Uses ACCU-CHEK machine blood sugar 2023-0 Yes [id number] Check U nivers diagnostic 6-07 blood ity of strip 00:00: sugar 2 [place] 00 times a Medical day. Branch E11.9. Brand per insurance. Uses ACCU-CHEK machine blood sugar 2023-0 Yes [id number] Check U nivers diagnostic 6-07 blood ity of strip 00:00: sugar 2 [place] 00 times a Medical day. Branch E11.9. Brand per insurance. Uses ACCU-CHEK machine blood sugar 2023-0 Yes [id number] Check U nivers diagnostic 6-07 blood ity of strip 00:00: sugar 2 [place] 00 times a Medical day. Branch E11.9. Brand per insurance. Uses ACCU-CHEK machine blood sugar 2023-0 Yes [id number] Check U nivers diagnostic 6-07 blood ity of strip 00:00: sugar 2 [place] 00 times a Medical day. Branch E11.9. Brand per insurance. Uses ACCU-CHEK machine blood sugar 2023-0 Yes [id number] Check U nivers diagnostic 6-07 blood ity of strip 00:00: sugar 2 [place] 00 times a Medical day. Branch E11.9. Brand per insurance. Uses ACCU-CHEK machine blood sugar 2023-0 Yes [id number] Check U nivers diagnostic 6-07 blood ity of strip 00:00: sugar 2 [place] 00 times a Medical day. Branch E11.9. Brand per insurance. Uses ACCU-CHEK machine blood sugar 2023-0 Yes [id number] Check U nivers diagnostic 6-07 blood ity of strip 00:00: sugar 2 [place] 00 times a Medical day. Branch E11.9. Brand per insurance. Uses ACCU-CHEK machine blood sugar 2023-0 Yes [id number] Check U nivers diagnostic 6-07 blood ity of strip 00:00: sugar 2 [place] 00 times a Medical day. Branch E11.9. Brand per insurance. Uses ACCU-CHEK machine blood sugar 2023-0 Yes [id number] Check U nivers diagnostic 6-07 blood ity of strip 00:00: sugar 2 [place] 00 times a Medical day. Branch E11.9. Brand per insurance. Uses ACCU-CHEK machine blood sugar 2023-0 Yes [id number] Check U nivers diagnostic 6-07 blood ity of strip 00:00: sugar 2 [place] 00 times a Medical day. Branch E11.9. Brand per insurance. Uses ACCU-CHEK machine blood sugar 2023-0 Yes [id number] Check U nivers diagnostic 6-07 blood ity of strip 00:00: sugar 2 [place] 00 times a Medical day. Branch E11.9. Brand per insurance. Uses ACCU-CHEK machine blood sugar 2023-0 Yes [id number] Check U nivers diagnostic 6-07 blood ity of strip 00:00: sugar 2 [place] 00 times a Medical day. Branch E11.9. Brand per insurance. Uses ACCU-CHEK machine blood sugar 2023-0 Yes [id number] Check U nivers diagnostic 6-07 blood ity of strip 00:00: sugar 2 [place] 00 times a Medical day. Branch E11.9. Brand per insurance. Uses ACCU-CHEK machine blood sugar 2023-0 Yes [id number] Check U nivers diagnostic 6-07 blood ity of strip 00:00: sugar 2 [place] 00 times a Medical day. Branch E11.9. Brand per insurance. Uses ACCU-CHEK machine blood sugar 2023-0 Yes [id number] Check U nivers diagnostic 6-07 blood ity of strip 00:00: sugar 2 [place] 00 times a Medical day. Branch E11.9. Brand per insurance. Uses ACCU-CHEK machine blood sugar 2023-0 Yes [id number] Check U nivers diagnostic 6-07 blood ity of strip 00:00: sugar 2 [place] 00 times a Medical day. Branch E11.9. Brand per insurance. Uses ACCU-CHEK machine blood sugar 2023-0 Yes [id number] Check U nivers diagnostic 6-07 blood ity of strip 00:00: sugar 2 [place] 00 times a Medical day. Branch E11.9. Brand per insurance. Uses ACCU-CHEK machine blood sugar 2023-0 Yes [id number] Check U nivers diagnostic 6-07 blood ity of strip 00:00: sugar 2 [place] 00 times a Medical day. Branch E11.9. Brand per insurance. Uses ACCU-CHEK machine metFORMIN 2023-0 2023- No 500mg Take 1 Univ ers 500 mg -06 25-19 tablet by ity of tablet 00:00: 00:00 mouth in [place] 00 :00 the Medical morning Branch and 1 tablet in the evening. Take with meals. metFORMIN 2023-0 2023- No 500mg Take 1 Univ ers 500 mg 09-21-19 tablet by ity of tablet 00:00: 00:00 mouth in [place] 00 :00 the Medical morning Branch and 1 tablet in the evening. Take with meals. divalproex 2023-0 2023- No 500mg Take 1 Uni vers ER 500 mg 5-25 05-25 tablet by ity of 24 hr 14:14: 00:00 mouth [place] tablet 51 :00 every 24 [facility] hours. divalproex 2023-0 2023- No [...] 30 :00 the Medical morning. Branch SERTraline 2023-0 2023- No 25mg Take 1 Univ ers 25 mg 5-25 05-25 tablet by ity of tablet 14:13: 00:00 mouth in [place] 30 :00 the Medical morning. Branch SEMGLEE,INS 2022-0 Yes 14U inject 14 U nivers ULIN 5-25 Units ity of GLARGINE-YF 14:08: under the [place] [facility], [place] 13 skin in [facility] the [place] morning. As directed SEMGLEE,INS 3-0 Yes 14U inject 14 U nivers ULIN 5-25 Units ity of GLARGINE-YF 14:08: under the [place] [facility], [place] skin in [facility] the [place] morning. As directed SEMGLEE,INS 3-0 Yes 14U inject 14 U nivers ULIN 5-25 Units ity of GLARGINE-YF 14:08: under the [place] [facility], [place] skin in [facility] the [place] morning. As directed SEMGLEE,INS 2022-0 Yes 14U inject 14 U nivers ULIN 5-25 Units ity of GLARGINE-YF 14:08: under the [place] [facility], [place] skin in [facility] the [place] morning. As directed SEMGLEE,INS 2022-0 Yes 14U inject 14 U nivers ULIN 5-25 Units ity of GLARGINE-YF 14:08: under the [place] [facility], [place] 13 skin in [facility] the [place] morning. As directed SEMGLEE,INS 2022-0 Yes 14U inject 14 U nivers ULIN 5-25 Units ity of GLARGINE-YF 14:08: under the [place] [facility], [place] skin in [facility] the [place] morning. As directed SEMGLEE,INS 3-0 Yes 14U inject 14 U nivers ULIN 5-25 Units ity of GLARGINE-YF 14:08: under the [place] [facility], [place] skin in [facility] morning. As directed SEMGLEE,INS 3-0 Yes 14U inject 14 U nivers ULIN 5-25 Units ity of GLARGINE-YF 14:08: under the [place] [facility], [place] 13 skin in [facility] morning. As directed SEMGLEE,INS 3-0 Yes 14U inject 14 U nivers ULIN 5-25 Units ity of GLARGINE-YF 14:08[facility] [place] [facility] the Branch morning. As directed SEMGLEE,INS 2023-0 Yes 14U inject 14 U nivers ULIN 5-25 Units ity of GLARGINE-YF 14:08: under the [place] skin in [facility] the Branch morning. As directed SEMGLEE,INS 2023-0 Yes 14U inject 14 U nivers ULIN 5-25 Units ity of GLARGINE-YF 14:08: under the [place] skin in [facility] the Branch morning. As directed SEMGLEE,INS 2023-0 Yes 14U inject 14 U nivers ULIN 5-25 Units ity of GLARGINE-YF 14:08: under the [place] skin in [facility] the Branch morning. As directed SEMGLEE,INS 2023-0 Yes 14U inject 14 U nivers ULIN 5-25 Units ity of GLARGINE-YF 14:08: under the [place] skin in [facility] the Branch morning. As directed SEMGLEE,INS 2023-0 Yes 14U inject 14 U nivers ULIN 5-25 Units ity of GLARGINE-YF 14:08: under the [place] skin in [facility] the Branch morning. As directed SEMGLEE,INS 2023-0 Yes 14U inject 14 U nivers ULIN 5-25 Units ity of GLARGINE-YF 14:08: under the [place] skin in [facility] the Branch morning. As directed SEMGLEE,INS 2023-0 Yes 14U inject 14 U nivers ULIN 5-25 Units ity of GLARGINE-YF 14:08: under the [place] skin in [facility] the Branch morning. As directed SEMGLEE,INS 2023-0 Yes 14U inject 14 U nivers ULIN 5-25 Units ity of GLARGINE-YF 14:08: under the [place] skin in [facility] the [place] morning. As directed SEMGLEE,INS 2023-0 Yes 14U inject 14 U nivers ULIN 5-25 Units ity of GLARGINE-YF 14:08: under the [place] skin in [facility] the morning. As directed SEMGLEE,INS 2022-0 Yes 14U inject 14 U nivers ULIN 5-25 Units ity of GLARGINE-YF 14:08: under the [place] 13 skin in Medical the morning. As directed SERTraline 2022-0 Yes [id number] 25mg Take 1 [facility] 25 mg 5-25 tablet by ity of tablet 00:00: mouth in [place] 00 the morning. Branch SERTraline 2022-0 Yes [id number] 100mg Take 1 [facility] 100 mg 5-25 tablet by ity of tablet 00:00: mouth in [place] 00 the Medical morning. Branch divalproex 2022-0 Yes [id number] 500mg Take 1 [facility] ER 500 mg 5-25 tablet by ity o f 24 hr 00:00: mouth [place] tablet 00 every 24 Medical (twenty- [place] ur) hours. Bifidobacte 3-0 Yes [id number] 4mg Take 1 [facility] rium 5-25 capsule by ity of Infantis 00:00: mouth in [place] (ALIGN) 4 00 the Medical mg capsule morning. Branc h SERTraline 2022-0 Yes [id number] 25mg Take 1 [facility] 25 mg 5-25 tablet by ity of tablet 00:00: mouth in [place] 00 the Medical morning. Branch SERTraline 2022-0 Yes [id number] 100mg Take 1 [facility] 100 mg 5-25 tablet by ity of tablet 00:00: mouth in [place] 00 the Medical morning. Branch divalproex 2022-0 Yes [id number] 500mg Take 1 [facility] ER 500 mg 5-25 tablet by ity o f 24 hr 00:00: mouth [place] tablet 00 every 24 Medical (twenty- [place] ur) hours. Bifidobacte 3-0 Yes [id number] 4mg Take 1 [facility] rium 5-25 capsule by ity of Infantis 00:00: mouth in [place] (ALIGN) 4 00 the Medical mg capsule morning. Branc h SERTraline 2022-0 Yes [id number] 25mg Take 1 [facility] 25 mg 5-25 tablet by ity of tablet 00:00: mouth in [place] 00 the Medical morning. Branch SERTraline 2022-0 Yes [id number] 100mg Take 1 [facility] 100 mg 5-25 tablet by ity of tablet 00:00: mouth in [place] 00 the Medical morning. Branch divalproex 2023-0 Yes [id number] 500mg Take 1 [facility] ER 500 mg 5-25 tablet by ity o f 24 hr 00:00: mouth [place] tablet 00 every 24 Medical ( [place] ur) hours. Bifidobacte 2023-0 Yes [id number] 4mg Take 1 [facility] rium 5-25 capsule by ity of Infantis 00:00: mouth in [place] (ALIGN) 4 00 the Medical mg capsule morning. Branc h SERTraline 2023-0 Yes [id number] 25mg Take 1 [facility] 25 mg 5-25 tablet by ity of tablet 00:00: mouth in [place] 00 the Medical morning. Branch SERTraline 2023-0 Yes [id number] 100mg Take 1 [facility] 100 mg 5-25 tablet by ity of tablet 00:00: mouth in [place] 00 the Medical morning. Branch divalproex 2023-0 Yes [id number] 500mg Take 1 [facility] ER 500 mg 5-25 tablet by ity o f 24 hr 00:00: mouth [place] tablet 00 every 24 Medical ( [place] ur) hours. Bifidobacte 2023-0 Yes [id number] 4mg Take 1 [facility] rium 5-25 capsule by ity of Infantis 00:00: mouth in [place] (ALIGN) 4 00 the Medical mg capsule morning. Branc h SERTraline 2023-0 Yes [id number] 25mg Take 1 [facility] 25 mg 5-25 tablet by ity of tablet 00:00: mouth in [place] 00 the Medical morning. Branch SERTraline 2023-0 Yes [id number] 100mg Take 1 [facility] 100 mg 5-25 tablet by ity of tablet 00:00: mouth in [place] 00 the Medical morning. Branch divalproex 2023-0 Yes [id number] 500mg Take 1 [facility] ER 500 mg 5-25 tablet by ity o f 24 hr 00:00: mouth [place] tablet 00 every 24 Medical ( [place] ur) hours. Bifidobacte 2023-0 Yes [id number] 4mg Take 1 [facility] rium 5-25 capsule by ity of Infantis 00:00: mouth in [place] (ALIGN) 4 00 the Medical mg capsule morning. Branc h SERTraline 2023-0 Yes [id number] 25mg Take 1 [facility] 25 mg 5-25 tablet by ity of tablet 00:00: mouth in [place] 00 the Medical morning. Branch SERTraline 2023-0 Yes [id number] 100mg Take 1 [facility] 100 mg 5-25 tablet by ity of tablet 00:00: mouth in [place] 00 the Medical morning. Branch divalproex 2023-0 Yes [id number] 500mg Take 1 [facility] ER 500 mg 5-25 tablet by ity o f 24 hr 00:00: mouth [place] tablet 00 every 24 Medical (twenty-fo Branch ur) hours. Bifidobacte 2023-0 Yes [id number] 4mg Take 1 [facility] rium 5-25 capsule by ity of Infantis 00:00: mouth in [place] (ALIGN) 4 00 the Medical mg capsule morning. Branc h SERTraline 2023-0 Yes [id number] 25mg Take 1 [facility] 25 mg 5-25 tablet by ity of tablet 00:00: mouth in [place] 00 the Medical morning. Branch SERTraline 2023-0 Yes [id number] 100mg Take 1 [facility] 100 mg 5-25 tablet by ity of tablet 00:00: mouth in [place] 00 the Medical morning. Branch divalproex 2023-0 Yes [id number] 500mg Take 1 [facility] ER 500 mg 5-25 tablet by ity o f 24 hr 00:00: mouth [place] tablet 00 every 24 Medical (twenty-fo Branch ur) hours. Bifidobacte 2023-0 Yes [id number] 4mg Take 1 [facility] rium 5-25 capsule by ity of Infantis 00:00: mouth in [place] (ALIGN) 4 00 the Medical mg capsule morning. Bran h SERTraline 2023-0 Yes [id number] 25mg Take 1 [facility] 25 mg 5-25 tablet by ity of tablet 00:00: mouth in [place] 00 the Medical morning. Branch SERTraline 2023-0 Yes [id number] 100mg Take 1 [facility] 100 mg 5-25 tablet by ity of tablet 00:00: mouth in [place] 00 the Medical morning. Branch divalproex 2023-0 Yes [id number] 500mg Take 1 [facility] ER 500 mg 5-25 tablet by ity o f 24 hr 00:00: mouth [place] tablet 00 every 24 Medical (twenty-fo Branch ur) hours. Bifidobacte 2023-0 Yes [id number] 4mg Take 1 [facility] rium 5-25 capsule by ity of Infantis 00:00: mouth in [place] (ALIGN) 4 00 the Medical mg capsule morning. Bran h SERTraline 2023-0 Yes [id number] 25mg Take 1 [facility] 25 mg 5-25 tablet by ity of tablet 00:00: mouth in [place] 00 the Medical morning. Branch SERTraline 2023-0 Yes [id number] 100mg Take 1 [facility] 100 mg 5-25 tablet by ity of tablet 00:00: mouth in [place] 00 the Medical morning. Branch divalproex 2023-0 Yes [id number] 500mg Take 1 [facility] ER 500 mg 5-25 tablet by ity o f 24 hr 00:00: mouth [place] tablet 00 every 24 Medical (twenty-fo Branch ur) hours. Bifidobacte 2023-0 Yes [id number] 4mg Take 1 [facility] rium 5-25 capsule by ity of Infantis 00:00: mouth in [place] (ALIGN) 4 00 the Medical mg capsule morning. Bran h SERTraline 3-0 Yes [id number] 25mg Take 1 [facility] 25 mg 5-25 tablet by ity of tablet 00:00: mouth in [place] 00 the Medical morning. Branch SERTraline 2023-0 Yes [id number] 100mg Take 1 [facility] 100 mg 5-25 tablet by ity of tablet 00:00: mouth in [place] 00 the Medical morning. Branch Bifidobacte 3-0 Yes [id number] 4mg Take 1 [facility] rium 5-25 capsule by ity of [facility] 00:00: mouth in [place] (ALIGN) 4 00 the Medical mg capsule morning. Bran h SERTraline 2023-0 Yes [id number] 25mg Take 1 [facility] 25 mg 5-25 tablet by ity of tablet 00:00: mouth in [place] 00 the Medical morning. Branch SERTraline 2023-0 Yes [id number] 100mg Take 1 [facility] 100 mg 5-25 tablet by ity of tablet 00:00: mouth in [place] 00 the Medical morning. Branch Bifidobacte 2023-0 Yes [id number] 4mg Take 1 [facility] rium 5-25 capsule by ity of [facility] 00:00: mouth in [place] (ALIGN) 4 00 the Medical mg capsule morning. Bran h SERTraline 2023-0 Yes [id number] 25mg Take 1 [facility] 25 mg 5-25 tablet by ity of tablet 00:00: mouth in [place] 00 the Medical morning. Branch Bifidobacte 2023-0 Yes [id number] 4mg Take 1 [facility] rium 5-25 capsule by ity of [facility] 00:00: mouth in [place] (ALIGN) 4 00 the Medical mg capsule morning. Branc h SERTraline 2023-0 Yes [id number] 25mg Take 1 [facility] 25 mg 5-25 tablet by ity of tablet 00:00: mouth in [place] 00 the Medical morning. Branch Bifidobacte 2023-0 Yes [id number] 4mg Take 1 [facility] rium 5-25 capsule by ity of [facility] 00:00: mouth in [place] (ALIGN) 4 00 the Medical mg capsule morning. Branc h SERTraline 2023-0 Yes [id number] 25mg Take 1 [facility] 25 mg 5-25 tablet by ity of tablet 00:00: mouth in [place] 00 the Medical morning. Branch Bifidobacte 2023-0 Yes [id number] 4mg Take 1 [facility] rium 5-25 capsule by ity of [facility] 00:00: mouth in [place] ([facility]) 4 00 the Medical mg capsule morning. Branc h SERTraline 2023-0 Yes [id number] 25mg Take 1 [facility] 25 mg 5-25 tablet by ity of tablet 00:00: mouth in [place] 00 the Medical morning. Branch Bifidobacte 2023-0 Yes [id number] 4mg Take 1 [facility] rium 5-25 capsule by ity of [facility] 00:00: mouth in [place] (ALIGN) 4 00 the Medical mg capsule morning. Branc h SERTraline 2023-0 Yes [id number] 25mg Take 1 [facility] 25 mg 5-25 tablet by ity of tablet 00:00: mouth in [place] 00 the Medical morning. Branch Bifidobacte 2023-0 Yes [id number] 4mg Take 1 [facility] rium 5-25 capsule by ity of [facility] 00:00: mouth in [place] (ALIGN) 4 00 the Medical mg capsule morning. Branc h SERTraline 2023-0 Yes [id number] 25mg Take 1 [facility] 25 mg 5-25 tablet by ity of tablet 00:00: mouth in [place] 00 the Medical morning. Branch SERTraline 2023-0 Yes [id number] 100mg Take 1 [facility] 100 mg 5-25 tablet by ity of tablet 00:00: mouth in [place] 00 the Medical morning. Branch divalproex 2023-0 Yes [id number] 500mg Take 1 [facility] ER 500 mg 5-25 tablet by ity o f 24 hr 00:00: mouth [place] tablet 00 every 24 Medical ( [place] ur) hours. Bifidobacte 2023-0 Yes [id number] 4mg Take 1 [facility] rium 5-25 capsule by ity of [facility] 00:00: mouth in [place] (ALIGN) 4 00 the Medical mg capsule morning. Branc h SERTraline 2022-0 Yes [id number] 25mg Take 1 [facility] 25 mg 5-25 tablet by ity of tablet 00:00: mouth in [place] 00 the Medical morning. Branch SERTraline 2023-0 Yes [id number] 100mg Take 1 [facility] 100 mg 5-25 tablet by ity of tablet 00:00: mouth in [place] 00 the Medical morning. Branch divalproex 2023-0 Yes [id number] 500mg Take 1 [facility] ER 500 mg 5-25 tablet by ity o f 24 hr 00:00: mouth [place] tablet 00 every 24 Medical ( [place] ur) hours. Bifidobacte 2023-0 Yes [id number] 4mg Take 1 [facility] rium 5-25 capsule by ity of [facility] 00:00: mouth in [place] (ALIGN) 4 00 the Medical mg capsule morning. Branc h SERTraline 2022-0 Yes [id number] 25mg Take 1 [facility] 25 mg 5-25 tablet by ity of tablet 00:00: mouth in [place] 00 the Medical morning. Branch SERTraline 3-0 Yes [id number] 100mg Take 1 [facility] 100 mg 5-25 tablet by ity of tablet 00:00: mouth in [place] 00 the Medical morning. Branch divalproex 2023-0 Yes [id number] 500mg Take 1 [facility] ER 500 mg 5-25 tablet by ity o f 24 hr 00:00: mouth [place] tablet 00 every 24 Medical (twenty- [place] ur) hours. Bifidobacte 2023-0 Yes [id number] 4mg Take 1 [facility] rium 5-25 capsule by ity of [facility] 00:00: mouth in [place] (ALIGN) 4 00 the Medical mg capsule morning. Branc h SERTraline 2023-0 Yes [id number] 25mg Take 1 [facility] 25 mg 5-25 tablet by ity of tablet 00:00: mouth in [place] 00 the Medical morning. Branch SERTraline 2023-0 Yes [id number] 100mg Take 1 [facility] 100 mg 5-25 tablet by ity of tablet 00:00: mouth in [place] 00 the Medical morning. Branch divalproex 2023-0 Yes [id number] 500mg Take 1 [facility] ER 500 mg 5-25 tablet by ity o f 24 hr 00:00: mouth [place] tablet 00 every 24 Medical ( Branch ur) hours. Bifidobacte 2023-0 Yes [id number] 4mg Take 1 [facility] rium 5-25 capsule by ity of [facility] 00:00: mouth in [place] (ALIGN) 4 00 the Medical mg capsule morning. Branc h SERTraline 2023-0 Yes [id number] 25mg Take 1 [facility] 25 mg 5-25 tablet by ity of tablet 00:00: mouth in [place] 00 the Medical morning. Branch SERTraline 2023-0 Yes [id number] 100mg Take 1 [facility] 100 mg 5-25 tablet by ity of tablet 00:00: mouth in [place] 00 the Medical morning. Branch divalproex 2023-0 Yes [id number] 500mg Take 1 [facility] ER 500 mg 5-25 tablet by ity o f 24 hr 00:00: mouth [place] tablet 00 every 24 Medical ( Branch ur) hours. Bifidobacte 2023-0 Yes [id number] 4mg Take 1 [facility] rium 5-25 capsule by ity of [facility] 00:00: mouth in [place] (ALIGN) 4 00 the Medical mg capsule morning. Branc h SERTraline 2023-0 Yes [id number] 25mg Take 1 [facility] 25 mg 5-25 tablet by ity of tablet 00:00: mouth in [place] 00 the Medical morning. Branch SERTraline 2023-0 Yes [id number] 100mg Take 1 [facility] 100 mg 5-25 tablet by ity of tablet 00:00: mouth in [place] 00 the Medical morning. Branch divalproex 2023-0 Yes [id number] 500mg Take 1 [facility] ER 500 mg 5-25 tablet by ity o f 24 hr 00:00: mouth [place] tablet 00 every 24 Medical (twenty Branch ur) hours. Bifidobacte 2023-0 Yes [id number] 4mg Take 1 [facility] rium 5-25 capsule by ity of [facility] 00:00: mouth in [place] (ALIGN) 4 00 the Medical mg capsule morning. Branc h gabapentin 2023-0 2023- No [id number] 400mg Take 1 [facility] 400 mg 5-25 08-24 capsule by ity of capsule 00:00: 04:59 mouth in [place] 00 :00 the Medical morning Branch and 1 capsule at noon and 1 capsule in the evening. Do all this for 90 days. gabapentin 2023-0 2023- No [id number] 400mg Take 1 [facility] 400 mg 5-25 08-24 capsule by ity of capsule 00:00: 04:59 mouth in [place] 00 :00 the Medical morning Branch and 1 capsule at noon and 1 capsule in the evening. Do all this for 90 days. gabapentin 2023-0 2023- No [id number] 400mg Take 1 [facility] 400 mg 5-25 08-24 capsule by ity of capsule 00:00: 04:59 mouth in [place] 00 :00 the Medical morning Branch and 1 capsule at noon and 1 capsule in the evening. Do all this for 90 days. gabapentin 2023-0 2023- No [id number] 400mg Take 1 [facility] 400 mg 5-25 08-24 capsule by ity of capsule 00:00: 04:59 mouth in [place] 00 :00 the Medical morning Branch and 1 capsule at noon and 1 capsule in the evening. Do all this for 90 days. gabapentin 2023-0 2023- No [id number] 400mg Take 1 [facility] 400 mg 5-25 08-24 capsule by ity of capsule 00:00: 04:59 mouth in [place] 00 :00 the Medical morning Branch and 1 capsule at noon and 1 capsule in the evening. Do all this for 90 days. gabapentin 2023-0 2023- No [id number] 400mg Take 1 [facility] 400 mg 5-25 08-24 capsule by ity of capsule 00:00: 04:59 mouth in [place] 00 :00 the Medical morning Branch and 1 capsule at noon and 1 capsule in the evening. Do all this for 90 days. gabapentin 2023-0 2023- No [id number] 400mg Take 1 [facility] 400 mg 5-25 08-24 capsule by ity of capsule 00:00: 04:59 mouth in [place] 00 :00 the Medical morning Branch and 1 capsule at noon and 1 capsule in the evening. Do all this for 90 days. gabapentin 2023-0 2023- No [id number] 400mg Take 1 [facility] 400 mg 5-25 08-24 capsule by ity of capsule 00:00: 04:59 mouth in [place] 00 :00 the [facility] morning [place] and 1 capsule at noon and 1 capsule in the evening. Do all this for 90 days. gabapentin 2023-0 2023- No [id number] 400mg Take 1 [facility] 400 mg 5-25 08-24 capsule by ity of capsule 00:00: 04:59 mouth in [place] 00 :00 the [facility] and 1 capsule at noon and 1 capsule in the evening. Do all this for 90 days. gabapentin 2023-0 2023- No [id number] 400mg Take 1 [facility] 400 mg 5-25 08-24 capsule by ity of capsule 00:00: 04:59 mouth in [place] 00 :00 [facility] and 1 capsule at noon and 1 capsule in the evening. Do all this for 90 days. gabapentin 202-0 2023- No [id number] 400mg Take 1 [facility] 400 mg 5-25 08-24 capsule by ity of capsule 00:00: 04:59 mouth in [place] 00 :00 [facility] and 1 capsule at noon and 1 capsule in the evening. Do all this for 90 days. gabapentin 2023-0 3- No [id number] 400mg Take 1 [facility] 400 mg 5-25 08-24 capsule by ity of capsule 00:00: 04:59 mouth in [place] 00 :00 [facility] and 1 capsule at noon and 1 capsule in the evening. Do all this for 90 days. gabapentin 2023-0 3- No [id number] 400mg Take 1 [facility] 400 mg 5-25 08-24 capsule by ity of capsule 00:00: 04:59 mouth in [place] 00 :00 [facility] and 1 capsule at noon and 1 capsule in the evening. Do all this for 90 days. gabapentin 2023-0 2023- No [id number] 400mg Take 1 [facility] 400 mg 5-25 08-24 capsule by ity of capsule 00:00: 04:59 mouth in [place] 00 :00 [facility] and 1 capsule at noon and 1 capsule in the evening. Do all this for 90 days. gabapentin 2023-0 2023- No [id number] 400mg Take 1 [facility] 400 mg 5-25 08-24 capsule by ity of capsule 00:00: 04:59 mouth in [place] 00 :00 the [facility] and 1 capsule at noon and 1 capsule in the evening. Do all this for 90 days. gabapentin 2023-0 2023- No [id number] 400mg Take 1 [facility] 400 mg 5-25 08-24 capsule by ity of capsule 00:00: 04:59 mouth in [place] 00 :00 the [facility] and 1 capsule at noon and 1 capsule in the evening. Do all this for 90 days. gabapentin 2023-0 2023- No [id number] 400mg Take 1 [facility] 400 mg 5-25 08-24 capsule by ity of capsule 00:00: 04:59 mouth in [place] 00 :00 the [facility] and 1 capsule at noon and 1 capsule in the evening. Do all this for 90 days. gabapentin 2023-0 2023- No [id number] 400mg Take 1 [facility] 400 mg 5-25 08-24 capsule by ity of capsule 00:00: 04:59 mouth in [place] 00 :00 [facility] and 1 capsule at noon and 1 capsule in the evening. Do all this for 90 days. gabapentin 2023-0 2023- No [id number] 400mg Take 1 [facility] 400 mg 5-25 08-24 capsule by ity of capsule 00:00: 04:59 mouth in [place] 00 :00 [facility] and 1 capsule at noon and 1 capsule in the evening. Do all this for 90 days. gabapentin 2023-0 2023- No [id number] 400mg Take 1 [facility] 400 mg 5-25 08-24 capsule by ity of capsule 00:00: 04:59 mouth in [place] 00 :00 [facility] and 1 capsule at noon and 1 capsule in the evening. Do all this for 90 days. gabapentin 2023-0 2023- No [id number] 400mg Take 1 [facility] 400 mg 5-25 08-24 capsule by ity of capsule 00:00: 04:59 mouth in [place] 00 :00 [facility] and 1 capsule at noon and 1 capsule in the evening. Do all this for 90 days. gabapentin 2023-0 2023- No [id number] 400mg Take 1 [facility] 400 mg 5-25 08-24 capsule by ity of capsule 00:00: 04:59 mouth in [place] 00 :00 the Medical morning Branch and 1 capsule at noon and 1 capsule in the evening. Do all this for 90 days. gabapentin 2023-0 202- No [id number] 400mg Take 1 [facility] 400 mg 5-25 08-18 capsule by ity of capsule 00:00: 00:00 mouth in [place] 00 :00 the Medical morning Branch and 1 capsule at noon and 1 capsule in the evening. Do all this for 90 days. SERTraline 202-0 202- No [id number] 25mg Take 1 [facility] 25 mg 5-25 08-18 tablet by ity of tablet 00:00: 00:00 mouth in [place] 00 :00 the Medical morning. Branch Bifidobacte 202-0 3- No [id number] 4mg Take 1 [facility] rium 5-25 08-18 capsule by ity of Infantis 00:00: 00:00 mouth in [facility] s (ALIGN) 4 00 :00 the Medical mg capsule morning. Branc h gabapentin 2022-0 2022- No [id number] 400mg Take 1 [facility] 400 mg 5-25 08-18 capsule by ity of capsule 00:00: 00:00 mouth in [place] 00 :00 the Medical morning Branch and 1 capsule at noon and 1 capsule in the evening. Do all this for 90 days. SERTraline 2022-0 2022- No [id number] 25mg Take 1 [facility] 25 mg 5-25 08-18 tablet by ity of tablet 00:00: 00:00 mouth in [place] 00 :00 the Medical morning. Branch Bifidobacte 2022-0 3- No [id number] 4mg Take 1 [facility] rium 5-25 08-18 capsule by ity of Infantis 00:00: 00:00 mouth in [facility] ([facility] 4 00 :00 the Medical mg capsule morning. Branc h SERTraline 2023-0 2023- No [id number] 100mg Take 1 [facility] 100 mg 5-25 07-19 tablet by ity of tablet 00:00: 00:00 mouth in [place] 00 :00 the Medical morning. Branch SERTraline 2023-0 3- No [id number] 100mg Take 1 [facility] 100 mg 5-25 07-19 tablet by ity of tablet 00:00: 00:00 mouth in [place] 00 :00 the Medical morning. Branch SERTraline 2023-0 2023- No [id number] 100mg Take 1 [facility] 100 mg 5-25 07-19 tablet by ity of tablet 00:00: 00:00 mouth in [place] 00 :00 the Medical morning. Branch SERTraline 2022- No [id number] 100mg Take 1 [facility] 100 mg 5-25 07-19 tablet by ity of tablet 00:00: 00:00 mouth in [place] 00 :00 the Medical morning. Branch divalproex 2022- No [id number] 500mg Take 1 [facility] ER 500 mg [...] 1 Each Branc h [place] [facility] and 1 Each in the evening. Miscellaneo 2022-0 Yes Bilateral U nivers us Medical 5-23 prosthetic ity of Supply Mis 10:46: s - [facility] as 19 Medical Branch lancing 0 Yes 1{each} Take 1 Unive rs device/lanc 5-23 Each in ity o f ets 10:46: the [place] (ACCU-CHEK 19 morning Medica l SOFT DEV and 1 Each Branc h LANCETS at noon [facility] and 1 Each in the evening. SERTraline 2022-0 Yes [id number] 100mg Take 1 [facility] 100 mg 5-19 tablet by ity of tablet 00:00: mouth in [place] 00 the Medical morning. Branch SERTraline 2022-0 Yes [id number] 100mg Take 1 [facility] 100 mg 5-19 tablet by ity of tablet 00:00: mouth in [place] 00 the Medical morning. Branch SERTraline 3-0 Yes [id number] 100mg Take 1 [facility] 100 mg 5-19 tablet by ity of tablet 00:00: mouth in [place] 00 the Medical morning. Branch SERTraline 2022-0 2023- No [id number] 100mg Take 1 [facility] 100 mg 5-19 05-25 tablet by ity of tablet 00:00: 00:00 mouth in [place] 00 :00 the Medical morning. Branch SERTraline 2022- No [id number] 100mg Take 1 [facility] 100 mg 5-19 05-25 tablet by ity of tablet 00:00: 00:00 mouth in [place] 00 :00 the Medical morning. Branch SERTraline 0 2022- No [id number] 100mg Take 1 [facility] 100 mg 5-19 05-25 tablet by ity of tablet 00:00: 00:00 mouth in [place] 00 :00 the Medical morning. Branch SERTraline 2022- No [id number] 100mg Take 1 [facility] 100 mg 5-19 05-25 tablet by ity of tablet 00:00: 00:00 mouth in [place] 00 :00 the Medical morning. Branch blood sugar Yes [id number] Check U nivers diagnostic 5-18 blood ity of strip 00:00: sugar 2 [place] 00 times a Medical day. Branch E11.9. Brand per insurance. Uses ACCU-CHEK machine Lancets Yes [id number] Check Unive rs Misc 5-18 blood ity of 00:00: sugar 2 [place] 00 times a Medical day. Branch E11.9. Brand per insurance. amiodarone Yes [id number] 200mg Take 1 [facility] 200 mg 5-18 tablet by ity of tablet 00:00: mouth in [place] 00 the Medical morning. Branch apixaban 5 Yes 5mg Take 1 Unive rs mg tablet 5-18 tablet by ity o f 00:00: mouth in [place] 00 the Medical morning Branch and 1 tablet in the evening. Indication s: ATRIAL FIBRILLATI ON atorvastati Yes [id number] 40mg Take 1 [facility] n 40 mg 5-18 tablet by ity of tablet 00:00: mouth at [place] 00 bedtime. Medical Branch lisinopriL Yes [id number] 2.5mg Take 1 [facility] 2.5 mg 5-18 tablet by ity of tablet 00:00: mouth in [place] 00 the Medical morning. Branch metoprolol Yes [id number] 25mg Take 1 U nivers tartrate 25 5-18 tablet by ity of mg tablet 00:00: mouth in [facility] 00 the Medical morning Branch and 1 tablet in the evening. blood sugar Yes [id number] Check U nivers diagnostic 5-18 blood ity of strip 00:00: sugar 2 [place] 00 times a Medical day. Branch E11.9. Brand per insurance. Uses ACCU-CHEK machine Lancets 2022-0 Yes [id number] Check Unive rs Misc 5-18 blood ity of 00:00: sugar 2 [place] 00 times a Medical day. Branch E11.9. Brand per insurance. amiodarone 2022-0 Yes [id number] 200mg Take 1 [facility] 200 mg 5-18 tablet by ity of tablet 00:00: mouth in [place] 00 the Medical morning. Branch apixaban 5 2022-0 Yes 5mg Take 1 Unive rs mg tablet 5-18 tablet by ity o f 00:00: mouth in [place] 00 the Medical morning Branch and 1 tablet in the evening. Indication s: ATRIAL FIBRILLATI ON atorvastati 0 Yes [id number] 40mg Take 1 [facility] n 40 mg 5-18 tablet by ity of tablet 00:00: mouth at [place] 00 bedtime. Medical Branch lisinopriL 0 Yes [id number] 2.5mg Take 1 [facility] 2.5 mg 5-18 tablet by ity of tablet 00:00: mouth in [place] 00 the Medical morning. Branch metoprolol 0 Yes [id number] 25mg Take 1 U nivers tartrate 25 5-18 tablet by ity of mg tablet 00:00: mouth in [facility] 00 the Medical morning Branch and 1 tablet in the evening. blood sugar 2022-0 Yes [id number] Check U nivers diagnostic 5-18 blood ity of strip 00:00: sugar 2 [place] 00 times a Medical day. Branch E11.9. Brand per insurance. Uses ACCU-CHEK machine Lancets 2022-0 Yes [id number] Check Unive rs Misc 5-18 blood ity of 00:00: sugar 2 [place] 00 times a Medical day. Branch E11.9. Brand per insurance. amiodarone 2022-0 Yes [id number] 200mg Take 1 [facility] 200 mg 5-18 tablet by ity of tablet 00:00: mouth in [place] 00 the Medical morning. Branch apixaban 5 2022-0 Yes 5mg Take 1 Unive rs mg tablet 5-18 tablet by ity o f 00:00: mouth in [place] 00 the Medical morning Branch and 1 tablet in the evening. Indication s: ATRIAL FIBRILLATI ON atorvastati 2022-0 Yes [id number] 40mg Take 1 [facility] n 40 mg 5-18 tablet by ity of tablet 00:00: mouth at [place] 00 bedtime. Medical Branch lisinopriL 2022-0 Yes [id number] 2.5mg Take 1 [facility] 2.5 mg 5-18 tablet by ity of tablet 00:00: mouth in [place] 00 the Medical morning. Branch metoprolol 2022-0 Yes [id number] 25mg Take 1 U nivers tartrate 25 5-18 tablet by ity of mg tablet 00:00: [place] 00 the Medical morning Branch and 1 tablet in the evening. blood sugar 2022-0 Yes [id number] Check U nivers diagnostic 5-18 blood ity of strip 00:00: sugar 2 [place] 00 times a Medical day. Branch E11.9. Brand per insurance. Uses ACCU-CHEK machine Lancets 2022-0 Yes [id number] Check Unive rs Misc 5-18 blood ity of 00:00: sugar 2 [place] 00 times a Medical day. Branch E11.9. Brand per insurance. amiodarone 0 Yes [id number] 200mg Take 1 [facility] 200 mg 5-18 tablet by ity of tablet 00:00: mouth in [place] 00 the Medical morning. Branch apixaban 5 0 Yes 5mg Take 1 Unive rs mg tablet 5-18 tablet by ity o f 00:00: mouth in [place] 00 the Medical morning Branch and 1 tablet in the evening. Indication s: ATRIAL FIBRILLATI ON atorvastati 2022-0 Yes [id number] 40mg Take 1 [facility] n 40 mg 5-18 tablet by ity of tablet 00:00: mouth at [place] 00 bedtime. Medical Branch lisinopriL 2022-0 Yes [id number] 2.5mg Take 1 [facility] 2.5 mg 5-18 tablet by ity of tablet 00:00: mouth in [place] 00 the Medical morning. Branch metoprolol 2022-0 Yes [id number] 25mg Take 1 U nivers tartrate 25 5-18 tablet by ity of mg tablet 00:00: mouth [facility] the [facility] morning Branch and 1 tablet in the evening. blood sugar 2022-0 Yes [id number] Check U nivers diagnostic 5-18 blood ity of strip 00:00: sugar 2 [place] 00 times a Medical day. Branch E11.9. Brand per insurance. Uses ACCU-CHEK machine Lancets 2022-0 Yes [id number] Check Unive rs Misc 5-18 blood ity of 00:00: sugar 2 [place] 00 times a Medical day. Branch E11.9. Brand per insurance. amiodarone 2022-0 Yes [id number] 200mg Take 1 [facility] 200 mg 5-18 tablet by ity of tablet 00:00: mouth in [place] 00 the Medical morning. Branch apixaban 5 2022-0 Yes 5mg Take 1 Unive rs mg tablet 5-18 tablet by ity o f 00:00: mouth in [place] 00 the Medical morning Branch and 1 tablet in the evening. Indication s: ATRIAL FIBRILLATI ON atorvastati 2022-0 Yes [id number] 40mg Take 1 [facility] n 40 mg 5-18 tablet by ity of tablet 00:00: mouth at [place] [address] bedtime. Medical Branch lisinopriL 0 Yes [id number] 2.5mg Take 1 [facility] 2.5 mg 5-18 tablet by ity of tablet 00:00: mouth in [place] 00 the Medical morning. Branch metoprolol 0 Yes [id number] 25mg Take 1 U nivers tartrate 25 5-18 tablet by ity of mg tablet 00:00: mouth in [facility] 00 the Medical morning Branch and 1 tablet in the evening. blood sugar 2022-0 Yes [id number] Check U nivers diagnostic 5-18 blood ity of strip 00:00: sugar 2 [place] 00 times a Medical day. Branch E11.9. Brand per insurance. Uses ACCU-CHEK machine Lancets 2022-0 Yes [id number] Check Unive rs Misc 5-18 blood ity of 00:00: sugar 2 [place] 00 times a Medical day. Branch E11.9. Brand per insurance. amiodarone 2022-0 Yes [id number] 200mg Take 1 [facility] 200 mg 5-18 tablet by ity of tablet 00:00: mouth in [place] 00 the Medical morning. Branch apixaban 5 2022-0 Yes 5mg Take 1 Unive rs mg tablet 5-18 tablet by ity o f 00:00: mouth in [place] the Medical morning Branch and 1 tablet in the evening. Indication s: ATRIAL FIBRILLATI ON atorvastati 0 Yes [id number] 40mg Take 1 Univers n 40 mg 5-18 tablet by ity of tablet 00:00: mouth at [place] 00 bedtime. Medical Branch lisinopriL 2022-0 Yes [id number] 2.5mg Take 1 [facility] 2.5 mg 5-18 tablet by ity of tablet 00:00: mouth in [place] 00 the Medical morning. Branch metoprolol 0 Yes [id number] 25mg Take 1 U nivers tartrate 25 5-18 tablet by ity of mg tablet 00:00: [place] 00 the Medical morning Branch and 1 tablet in the evening. blood sugar 2022-0 Yes [id number] Check U nivers diagnostic 5-18 blood ity of strip 00:00: sugar 2 [place] 00 times a Medical day. Branch E11.9. Brand per insurance. Uses ACCU-CHEK machine Lancets 0 Yes [id number] Check Unive rs Misc 5-18 blood ity of 00:00: sugar 2 [place] 00 times a Medical day. Branch E11.9. Brand per insurance. amiodarone 0 Yes [id number] 200mg Take 1 [facility] 200 mg 5-18 tablet by ity of tablet 00:00: mouth in [place] 00 the Medical morning. Branch apixaban 5 0 Yes 5mg Take 1 Unive rs mg tablet 5-18 tablet by ity o f 00:00: mouth in [place] 00 the Medical morning Branch and 1 tablet in the evening. Indication s: ATRIAL FIBRILLATI ON atorvastati 0 Yes [id number] 40mg Take 1 [facility] n 40 mg 5-18 tablet by ity of tablet 00:00: mouth at [place] 00 bedtime. Medical Branch lisinopriL 0 Yes [id number] 2.5mg Take 1 Univers 2.5 mg 5-18 tablet by ity of tablet 00:00: mouth in [place] 00 the Medical morning. Branch metoprolol 2022-0 Yes [id number] 25mg Take 1 U nivers tartrate 25 5-18 tablet by ity of mg tablet 00:00: mouth in [facility] 00 the Medical morning Branch and 1 tablet in the evening. blood sugar 2022-0 Yes [id number] Check U nivers diagnostic 5-18 blood ity of strip 00:00: sugar 2 [place] 00 times a Medical day. Branch E11.9. Brand per insurance. Uses ACCU-CHEK machine Lancets Yes [id number] Check Unive rs Misc 5-18 blood ity of 00:00: sugar 2 [place] 00 times a Medical day. Branch E11.9. Brand per insurance. amiodarone 2022-0 Yes [id number] 200mg Take 1 Univers 200 mg 5-18 tablet by ity of tablet 00:00: mouth in [place] 00 the Medical morning. Branch apixaban 5 2022-0 Yes 5mg Take 1 Unive rs mg tablet 5-18 tablet by ity o f 00:00: mouth in [place] 00 the Medical morning Branch and 1 tablet in the evening. Indication s: ATRIAL FIBRILLATI ON atorvastati Yes [id number] 40mg Take 1 [facility] n 40 mg 5-18 tablet by ity of tablet 00:00: mouth at [place] [address] bedtime. Medical Branch lisinopriL Yes [id number] 2.5mg Take 1 Univers 2.5 mg 5-18 tablet by ity of tablet 00:00: mouth in [place] 00 the Medical morning. Branch metoprolol Yes [id number] 25mg Take 1 U nivers tartrate 25 5-18 tablet by ity of mg tablet 00:00: mouth in [facility] 00 the Medical morning Branch and 1 tablet in the evening. Lancets Yes [id number] Check Unive rs Misc 5-18 blood ity of 00:00: sugar 2 [place] 00 times a Medical day. Branch E11.9. Brand per insurance. amiodarone 2022- Yes [id number] 200mg Take 1 [facility] 200 mg 5-18 tablet by [facility] of tablet 00:00: mouth in [place] 00 the Medical morning. Branch apixaban 5 2022-0 Yes 5mg Take 1 [facility] rs mg tablet 5-18 tablet by ity o f 00:00: mouth in [place] 00 the Medical morning Branch and 1 tablet in the evening. Indication s: ATRIAL FIBRILLATI ON atorvastati 2022-0 Yes [id number] 40mg Take 1 [facility] n 40 mg 5-18 tablet by it[facility] of tablet 00:00: mouth at [place] [address] bedtime. Medical Branch lisinopriL 2023-0 Yes [id number] 2.5mg Take 1 [facility] 2.5 mg 5-18 tablet by ity of tablet 00:00: mouth in [place] 00 the Medical morning. Branch metoprolol 0 Yes [id number] 25mg Take 1 [facility] nivers tartrate 25 5-18 tablet by [facility] of mg tablet 00:00: mouth [place] 00 the Medical morning Branch and 1 tablet in the evening. Lancets 0 Yes [id number] Check Un[facility] rs Misc 5-18 blood ity of 00:00: sugar 2 [place] 00 times a Medical day. Branch E11.9. Brand per insurance. amiodarone Yes [id number] 200mg Take 1 [facility] 200 mg 5-18 tablet by ity of tablet 00:00: mouth in [place] 00 the Medical morning. Branch apixaban 5 0 Yes 5mg Take 1 [facility] mg tablet 5-18 tablet by ity o f 00:00: mouth in [place] 00 the Medical morning Branch and 1 tablet in the evening. Indication s: ATRIAL FIBRILLATI ON atorvastati Yes [id number] 40mg Take 1 [facility] n 40 mg 5-18 tablet by it[facility] of tablet 00:00: mouth at [place] 00 bedtime. Medical Branch lisinopriL 0 Yes [id number] 2.5mg Take 1 [facility] 2.5 mg 5-18 tablet by ity of tablet 00:00: mouth in [place] 00 the Medical morning. Branch metoprolol 0 Yes [id number] 25mg Take 1 [facility] nivers tartrate 25 5-18 tablet by [facility] of mg tablet 00:00: mouth in [place] 00 the Medical morning Branch and 1 tablet in the evening. Lancets 0 Yes [id number] Check [facility] rs Misc 5-18 blood ity of 00:00: sugar 2 [place] 00 times a Medical day. Branch E11.9. Brand per insurance. amiodarone 2022-0 Yes [id number] 200mg Take 1 [facility] 200 mg 5-18 tablet by it[facility] of tablet 00:00: mouth in [place] 00 the Medical morning. Branch apixaban 5 2022-0 Yes 5mg Take 1 [facility] mg tablet 5-18 tablet by ity o f 00:00: mouth in [place] 00 the Medical morning Branch and 1 tablet in the evening. Indication s: ATRIAL FIBRILLATI ON atorvastati 2022-0 Yes [id number] 40mg Take 1 [facility] n 40 mg 5-18 tablet by it[facility] of tablet 00:00: mouth at [place] 00 bedtime. Medical Branch lisinopriL 2022-0 Yes [id number] 2.5mg Take 1 [facility] 2.5 mg 5-18 tablet by ity of tablet 00:00: mouth in [place] 00 the Medical morning. Branch metoprolol 2022-0 Yes [id number] 25mg Take 1 [facility] tartrate 25 5-18 tablet by [facility] of mg tablet 00:00: mouth in [place] 00 the Medical morning Branch and 1 tablet in the evening. Lancets 0 Yes [id number] Check [facility] rs Misc 5-18 blood ity of 00:00: sugar 2 [place] 00 times a Medical day. Branch E11.9. Brand per insurance. amiodarone 0 Yes [id number] 200mg Take 1 [facility] 200 mg 5-18 tablet by ity of tablet 00:00: mouth in [place] 00 the Medical morning. Branch apixaban 5 0 Yes 5mg Take 1 [facility] mg tablet 5-18 tablet by ity o f 00:00: mouth in [place] 00 the Medical morning Branch and 1 tablet in the evening. Indication s: ATRIAL FIBRILLATI ON atorvastati 0 Yes [id number] 40mg Take 1 [facility] n 40 mg 5-18 tablet by it[facility] of tablet 00:00: mouth at [place] 00 bedtime. Medical Branch lisinopriL 2022-0 Yes [id number] 2.5mg Take 1 [facility] 2.5 mg 5-18 tablet by ity of tablet 00:00: mouth in [place] 00 the Medical morning. Branch metoprolol 2022-0 Yes [id number] 25mg Take 1 [facility] nivers tartrate 25 5-18 tablet by [facility] of mg tablet 00:00: mouth [place] 00 the Medical morning Branch and 1 tablet in the evening. Lancets 2022-0 Yes [id number] Check [facility] rs Misc 5-18 blood ity of 00:00: sugar 2 [place] 00 times a Medical day. Branch E11.9. Brand per insurance. atorvastati 2022-0 Yes [id number] 40mg Take 1 [facility] n 40 mg 5-18 tablet by it[facility] of tablet 00:00: mouth at [place] 00 bedtime. Medical Branch lisinopriL 0 Yes [id number] 2.5mg Take 1 [facility] 2.5 mg 5-18 tablet by ity of tablet 00:00: mouth in [place] 00 the Medical morning. Branch metoprolol 0 Yes [id number] 25mg Take 1 [facility] nivers tartrate 25 5-18 tablet by it[facility] of mg tablet 00:00: mouth in [place] 00 the Medical morning Branch and 1 tablet in the evening. Lancets 2022-0 Yes [id number] Check [facility] rs Misc 5-18 blood ity of 00:00: sugar 2 [place] 00 times a Medical day. Branch E11.9. Brand per insurance. atorvastati 2022-0 Yes [id number] 40mg Take 1 [facility] n 40 mg 5-18 tablet by ity of tablet 00:00: mouth at [place] 00 bedtime. Medical Branch lisinopriL 0 Yes [id number] 2.5mg Take 1 [facility] 2.5 mg 5-18 tablet by ity of tablet 00:00: mouth in [place] 00 the Medical morning. Branch metoprolol 0 Yes [id number] 25mg Take 1 [facility] nivers tartrate 25 5-18 tablet by ity of mg tablet 00:00: mouth in [place] 00 the Medical morning Branch and 1 tablet in the evening. Lancets 0 Yes [id number] Check [facility] rs Misc 5-18 blood ity of 00:00: sugar 2 [place] 00 times a Medical day. Branch E11.9. Brand per insurance. atorvastati 2022-0 Yes [id number] 40mg Take 1 [facility] n 40 mg 5-18 tablet by ity of tablet 00:00: mouth at [place] 00 bedtime. Medical Branch lisinopriL 0 Yes [id number] 2.5mg Take 1 [facility] 2.5 mg 5-18 tablet by ity of tablet 00:00: mouth in [place] 00 the Medical morning. Branch metoprolol 2022-0 Yes [id number] 25mg Take 1 [facility] nivers tartrate 25 5-18 tablet by [facility] of mg tablet 00:00: mouth [place] 00 the Medical morning Branch and 1 tablet in the evening. Lancets 2022-0 Yes [id number] Check [facility] rs Misc 5-18 blood ity of 00:00: sugar 2 [place] 00 times a Medical day. Branch E11.9. Brand per insurance. atorvastati 0 Yes [id number] 40mg Take 1 [facility] n 40 mg 5-18 tablet by ity of tablet 00:00: mouth at [place] 00 bedtime. Medical Branch lisinopriL Yes [id number] 2.5mg Take 1 [facility] 2.5 mg 5-18 tablet by ity of tablet 00:00: mouth in [place] 00 the Medical morning. Branch metoprolol Yes [id number] 25mg Take 1 U nivers tartrate 25 5-18 tablet by ity of mg tablet 00:00: mouth in [facility] 00 the Medical morning Branch and 1 tablet in the evening. Lancets Yes [id number] Check Unive rs Misc 5-18 blood ity of 00:00: sugar 2 [place] 00 times a Medical day. Branch E11.9. Brand per insurance. atorvastati Yes [id number] 40mg Take 1 [facility] n 40 mg 5-18 tablet by ity of tablet 00:00: mouth at [place] 00 bedtime. Medical Branch lisinopriL Yes [id number] 2.5mg Take 1 [facility] 2.5 mg 5-18 tablet by ity of tablet 00:00: mouth in [place] 00 the Medical morning. Branch metoprolol Yes [id number] 25mg Take 1 U nivers tartrate 25 5-18 tablet by ity of mg tablet 00:00: mouth in [facility] 00 the Medical morning Branch and 1 tablet in the evening. Lancets 0 Yes [id number] Check Unive rs Misc 5-18 blood ity of 00:00: sugar 2 [place] 00 times a Medical day. Branch E11.9. Brand per insurance. Lancets Yes [id number] Check Un[facility] rs Misc 5-18 blood ity of 00:00: sugar 2 [place] 00 times a Medical day. Branch E11.9. Brand per insurance. Lancets 0 Yes [id number] Check Unive rs Misc 5-18 blood ity of 00:00: sugar 2 [place] 00 times a Medical day. Branch E11.9. Brand per insurance. Lancets Yes [id number] Check Unive rs Misc 5-18 blood ity of 00:00: sugar 2 [place] 00 times a Medical day. Branch E11.9. Brand per insurance. Lancets 0 Yes [id number] Check Unive rs Misc 5-18 blood ity of 00:00: sugar 2 [place] 00 times a Medical day. Branch E11.9. Brand per insurance. Lancets 0 Yes [id number] Check Unive rs Misc 5-18 blood ity of 00:00: sugar 2 [place] 00 times a Medical day. Branch E11.9. Brand per insurance. Lancets 0 Yes [id number] Check Unive rs Misc 5-18 blood ity of 00:00: sugar 2 [place] 00 times a Medical day. Branch E11.9. Brand per insurance. Lancets 0 Yes [id number] Check Un[facility] rs Misc 5-18 blood ity of 00:00: sugar 2 [place] 00 times a Medical day. Branch E11.9. Brand per insurance. Lancets 0 Yes [id number] Check Unive rs Misc 5-18 blood ity of 00:00: sugar 2 [place] 00 times a Medical day. Branch E11.9. Brand per insurance. Lancets 0 Yes [id number] Check Unive rs Misc 5-18 blood ity of 00:00: sugar 2 [place] 00 times a Medical day. Branch E11.9. Brand per insurance. blood sugar 0 Yes [id number] Check U nivers diagnostic 5-18 blood ity of strip 00:00: sugar 2 [place] 00 times a Medical day. Branch E11.9. Brand per insurance. Uses ACCU-CHEK machine Lancets 0 Yes [id number] Check Unive rs Misc 5-18 blood ity of 00:00: sugar 2 [place] 00 times a Medical day. Branch E11.9. Brand per insurance. amiodarone Yes [id number] 200mg Take 1 [facility] 200 mg 5-18 tablet by ity of tablet 00:00: mouth in [place] 00 the Medical morning. Branch apixaban 5 Yes 5mg Take 1 [facility] rs mg tablet 5-18 tablet by ity o f 00:00: mouth in [place] 00 the Medical morning Branch and 1 tablet in the evening. Indication s: ATRIAL FIBRILLATI ON atorvastati Yes [id number] 40mg Take 1 [facility] n 40 mg 5-18 tablet by ity of tablet 00:00: mouth at [place] 00 bedtime. Medical Branch divalproex Yes [id number] 250mg Take 1 [facility] ER 250 mg 5-18 tablet by ity o f 24 hr 00:00: mouth [place] tablet 00 every 24 Medical (twenty-fo Branch ur) hours. gabapentin Yes [id number] 300mg Take 1 [facility] 300 mg 5-18 capsule by ity of capsule 00:00: mouth in [place] 00 the morning Branch and 1 capsule at noon and 1 capsule in the evening. lisinopriL Yes [id number] 2.5mg Take 1 [facility] 2.5 mg 5-18 tablet by ity of tablet 00:00: mouth in [place] 00 the morning. Branch metoprolol Yes [id number] 25mg Take 1 U nivers tartrate 25 5-18 tablet by ity of mg tablet 00:00: mouth in [facility] 00 the morning Branch and 1 tablet in the evening. blood sugar Yes [id number] Check U nivers diagnostic 5-18 blood ity of strip 00:00: sugar 2 [place] 00 times a Medical day. Branch E11.9. Brand per insurance. Uses ACCU-CHEK machine Lancets Yes [id number] Check Unive rs Misc 5-18 blood ity of 00:00: sugar 2 [place] 00 times a Medical day. Branch E11.9. Brand per insurance. amiodarone Yes [id number] 200mg Take 1 [facility] 200 mg 5-18 tablet by ity of tablet 00:00: mouth in [place] 00 the Medical morning. Branch apixaban 5 0 Yes 5mg Take 1 [facility] rs mg tablet 5-18 tablet by ity o f 00:00: mouth in [place] the morning Branch and 1 tablet in the evening. Indication s: ATRIAL FIBRILLATI ON atorvastati Yes [id number] 40mg Take 1 [facility] n 40 mg 5-18 tablet by ity of tablet 00:00: mouth at [place] 00 bedtime. Medical Branch divalproex Yes [id number] 250mg Take 1 [facility] ER 250 mg 5-18 tablet by ity o f 24 hr 00:00: mouth [place] tablet 00 every 24 Medical (- Branch ur) hours. gabapentin 2022-0 Yes [id number] 300mg Take 1 [facility] 300 mg 5-18 capsule by ity of capsule 00:00: mouth in [place] 00 the morning Branch and 1 capsule at noon and 1 capsule in the evening. lisinopriL 2022-0 Yes [id number] 2.5mg Take 1 [facility] 2.5 mg 5-18 tablet by ity of tablet 00:00: mouth in [place] 00 the morning. Branch metoprolol 2022-0 Yes [id number] 25mg Take 1 U nivers tartrate 25 5-18 tablet by ity of mg tablet 00:00: mouth in [facility] 00 the morning Branch and 1 tablet in the evening. blood sugar 2022-0 Yes [id number] Check U nivers diagnostic 5-18 blood ity of strip 00:00: sugar 2 [place] 00 times a Medical day. Branch E11.9. Brand per insurance. Uses ACCU-CHEK machine Lancets Yes [id number] Check Unive rs Misc 5-18 blood ity of 00:00: sugar 2 [place] 00 times a Medical day. Branch E11.9. Brand per insurance. amiodarone 2022-0 Yes [id number] 200mg Take 1 [facility] 200 mg 5-18 tablet by ity of tablet 00:00: mouth in [place] 00 the morning. Branch apixaban 5 2022-0 Yes 5mg Take 1 [facility] rs mg tablet 5-18 tablet by ity o f 00:00: mouth in [place] the morning Branch and 1 tablet in the evening. Indication s: ATRIAL FIBRILLATI ON atorvastati 2022-0 Yes [id number] 40mg Take 1 [facility] n 40 mg 5-18 tablet by ity of tablet 00:00: mouth at [place] 00 bedtime. Medical Branch divalproex 2022-0 Yes [id number] 250mg Take 1 [facility] ER 250 mg 5-18 tablet by ity o f 24 hr 00:00: mouth [place] tablet 00 every 24 Medical (twenty- Branch ur) hours. gabapentin 2022-0 Yes [id number] 300mg Take 1 [facility] 300 mg 5-18 capsule by ity of capsule 00:00: mouth in [place] the Medical morning Branch and 1 capsule at noon and 1 capsule in the evening. lisinopriL 2022-0 Yes [id number] 2.5mg Take 1 [facility] 2.5 mg 5-18 tablet by ity of tablet 00:00: mouth in [place] 00 the morning. Branch metoprolol 2022-0 Yes [id number] 25mg Take 1 U nivers tartrate 25 5-18 tablet by ity of mg tablet 00:00: mouth in [facility] 00 the morning Branch and 1 tablet in the evening. blood sugar 2022-0 Yes [id number] Check U nivers diagnostic 5-18 blood ity of strip 00:00: sugar 2 [place] 00 times a Medical day. Branch E11.9. Brand per insurance. Uses ACCU-CHEK machine Lancets 0 Yes [id number] Check Unive rs Misc 5-18 blood ity of 00:00: sugar 2 [place] times a Medical day. Branch E11.9. Brand per insurance. amiodarone 2022-0 Yes [id number] 200mg Take 1 [facility] 200 mg 5-18 tablet by ity of tablet 00:00: mouth in [place] 00 the morning. Branch apixaban 5 0 Yes 5mg Take 1 [facility] rs mg tablet 5-18 tablet by ity o f 00:00: mouth in [place] the morning Branch and 1 tablet in the evening. Indication s: ATRIAL FIBRILLATI ON atorvastati 2022-0 Yes [id number] 40mg Take 1 [facility] n 40 mg 5-18 tablet by ity of tablet 00:00: mouth at [place] 00 bedtime. Medical Branch divalproex 2022-0 Yes [id number] 250mg Take 1 [facility] ER 250 mg 5-18 tablet by ity o f 24 hr 00:00: mouth [place] tablet 00 every 24 Medical (twenty-fo Branch ur) hours. gabapentin 2022-0 Yes [id number] 300mg Take 1 [facility] 300 mg 5-18 capsule by ity of capsule 00:00: mouth in [place] the morning Branch and 1 capsule at noon and 1 capsule in the evening. lisinopriL 2022-0 Yes [id number] 2.5mg Take 1 [facility] 2.5 mg 5-18 tablet by ity of tablet 00:00: mouth in [place] 00 the morning. Branch metoprolol 2023-0 Yes [id number] 25mg Take 1 U nivers tartrate 25 5-18 tablet by ity of mg tablet 00:00: mouth in [place] 00 the morning Branch and 1 tablet in the evening. blood sugar 2022-0 Yes [id number] Check U nivers diagnostic 5-18 blood ity of strip 00:00: sugar 2 [place] 00 times a Medical day. Branch E11.9. Brand per insurance. Uses ACCU-CHEK machine Lancets 2022-0 Yes [id number] Check Unive rs Misc 5-18 blood ity of 00:00: sugar 2 [place] 00 times a Medical day. Branch E11.9. Brand per insurance. amiodarone 0 Yes [id number] 200mg Take 1 [facility] 200 mg 5-18 tablet by ity of tablet 00:00: mouth in [place] 00 the morning. Branch apixaban 5 2022-0 Yes 5mg Take 1 [facility] rs mg tablet 5-18 tablet by ity o f 00:00: mouth in [place] the morning Branch and 1 tablet in the evening. Indication s: ATRIAL FIBRILLATI ON atorvastati 2022-0 Yes [id number] 40mg Take 1 [facility] n 40 mg 5-18 tablet by ity of tablet 00:00: mouth at [place] 00 bedtime. Medical Branch divalproex 2022-0 Yes [id number] 250mg Take 1 [facility] ER 250 mg 5-18 tablet by ity o f 24 hr 00:00: mouth [place] tablet 00 every 24 Medical (twenty-fo Branch ur) hours. gabapentin 2022-0 Yes [id number] 300mg Take 1 [facility] 300 mg 5-18 capsule by ity of capsule 00:00: mouth in [place] 00 the Medical morning Branch and 1 capsule at noon and 1 capsule in the evening. lisinopriL 2022-0 Yes [id number] 2.5mg Take 1 [facility] 2.5 mg 5-18 tablet by ity of tablet 00:00: mouth in [place] 00 the morning. Branch metoprolol 2022-0 Yes [id number] 25mg Take 1 U nivers tartrate 25 5-18 tablet by ity of mg tablet 00:00: mouth in [place] 00 the Medical morning Branch and 1 tablet in the evening. blood sugar 2022-0 Yes [id number] Check U nivers diagnostic 5-18 blood ity of strip 00:00: sugar 2 [place] 00 times a Medical day. Branch E11.9. Brand per insurance. Uses ACCU-CHEK machine Lancets 2022-0 Yes [id number] Check Unive rs Misc 5-18 blood ity of 00:00: sugar 2 [place] 00 times a Medical day. Branch E11.9. Brand per insurance. amiodarone 2022-0 Yes [id number] 200mg Take 1 [facility] 200 mg 5-18 tablet by ity of tablet 00:00: mouth in [place] 00 the Medical morning. Branch apixaban 5 2022-0 Yes 5mg Take 1 [facility] rs mg tablet 5-18 tablet by ity o f 00:00: mouth in [place] the Medical morning Branch and 1 tablet in the evening. Indication s: ATRIAL FIBRILLATI ON atorvastati 2022-0 Yes [id number] 40mg Take 1 [facility] n 40 mg 5-18 tablet by ity of tablet 00:00: mouth at [place] [address] bedtime. Medical Branch lisinopriL 2022-0 Yes [id number] 2.5mg Take 1 [facility] 2.5 mg 5-18 tablet by ity of tablet 00:00: mouth in [place] 00 the Medical morning. Branch metoprolol 2022-0 Yes [id number] 25mg Take 1 U nivers tartrate 25 5-18 tablet by ity of mg tablet 00:00: mouth in [facility] the Medical morning Branch and 1 tablet in the evening. blood sugar 2022-0 Yes [id number] Check U nivers diagnostic 5-18 blood ity of strip 00:00: sugar 2 [place] 00 times a Medical day. Branch E11.9. Brand per insurance. Uses ACCU-CHEK machine Lancets 2022-0 Yes [id number] Check Unive rs Misc 5-18 blood ity of 00:00: sugar 2 [place] 00 times a Medical day. Branch E11.9. Brand per insurance. amiodarone 2022-0 Yes [id number] 200mg Take 1 [facility] 200 mg 5-18 tablet by ity of tablet 00:00: mouth in [place] 00 the Medical morning. Branch apixaban 5 2022-0 Yes 5mg Take 1 [facility] rs mg tablet 5-18 tablet by ity o f 00:00: mouth in [place] the Medical morning Branch and 1 tablet in the evening. Indication s: ATRIAL FIBRILLATI ON atorvastati 2022-0 Yes [id number] 40mg Take 1 [facility] n 40 mg 5-18 tablet by ity of tablet 00:00: mouth at [place] 00 bedtime. Medical Branch lisinopriL 2022-0 Yes [id number] 2.5mg Take 1 [facility] 2.5 mg 5-18 tablet by ity of tablet 00:00: mouth in [place] 00 the morning. Branch metoprolol 2022-0 Yes [id number] 25mg Take 1 U nivers tartrate 25 5-18 tablet by ity of mg tablet 00:00: mouth in [place] 00 the Medical morning Branch and 1 tablet in the evening. blood sugar 2022-0 Yes [id number] Check U nivers diagnostic 5-18 blood ity of strip 00:00: sugar 2 [place] 00 times a Medical day. Branch E11.9. Brand per insurance. Uses ACCU-CHEK machine Lancets 0 Yes [id number] Check Unive rs Misc 5-18 blood ity of 00:00: sugar 2 [place] 00 times a Medical day. Branch E11.9. Brand per insurance. amiodarone 0 Yes [id number] 200mg Take 1 [facility] 200 mg 5-18 tablet by ity of tablet 00:00: mouth in [place] 00 the Medical morning. Branch apixaban 5 0 Yes 5mg Take 1 [facility] rs mg tablet 5-18 tablet by ity o f 00:00: mouth in [place] 00 the morning Branch and 1 tablet in the evening. Indication s: ATRIAL FIBRILLATI ON atorvastati 0 Yes [id number] 40mg Take 1 [facility] n 40 mg 5-18 tablet by ity of tablet 00:00: mouth at [place] 00 bedtime. Medical Branch lisinopriL 2022-0 Yes [id number] 2.5mg Take 1 [facility] 2.5 mg 5-18 tablet by ity of tablet 00:00: mouth in [place] 00 the Medical morning. Branch metoprolol 2022-0 Yes [id number] 25mg Take 1 U nivers tartrate 25 5-18 tablet by ity of mg tablet 00:00: mouth in [place] 00 the Medical morning Branch and 1 tablet in the evening. blood sugar 2022-0 Yes [id number] Check U nivers diagnostic 5-18 blood ity of strip 00:00: sugar 2 [place] 00 times a Medical day. Branch E11.9. Brand per insurance. Uses ACCU-CHEK machine Lancets 2022-0 Yes [id number] Check Unive rs Misc 5-18 blood ity of 00:00: sugar 2 [place] 00 times a Medical day. Branch E11.9. Brand per insurance. amiodarone 2022-0 Yes [id number] 200mg Take 1 [facility] 200 mg 5-18 tablet by ity of tablet 00:00: mouth in [place] 00 the Medical morning. Branch apixaban 5 2022-0 Yes 5mg Take 1 [facility] rs mg tablet 5-18 tablet by ity o f 00:00: mouth in [place] 00 the Medical morning Branch and 1 tablet in the evening. Indication s: ATRIAL FIBRILLATI ON atorvastati Yes [id number] 40mg Take 1 [facility] n 40 mg 5-18 tablet by ity of tablet 00:00: mouth at [place] [address] bedtime. Medical Branch lisinopriL Yes [id number] 2.5mg Take 1 [facility] 2.5 mg 5-18 tablet by ity of tablet 00:00: mouth in [place] 00 the Medical morning. Branch metoprolol Yes [id number] 25mg Take 1 U nivers tartrate 25 5-18 tablet by ity of mg tablet 00:00: mouth in [facility] the Medical morning Branch and 1 tablet in the evening. blood sugar 2022-0 Yes [id number] Check U nivers diagnostic 5-18 blood ity of strip 00:00: sugar 2 [place] 00 times a Medical day. Branch E11.9. Brand per insurance. Uses ACCU-CHEK machine Lancets 2022-0 Yes [id number] Check Unive rs Misc 5-18 blood ity of 00:00: sugar 2 [place] 00 times a Medical day. Branch E11.9. Brand per insurance. amiodarone 2022-0 Yes [id number] 200mg Take 1 [facility] 200 mg 5-18 tablet by ity of tablet 00:00: mouth in [place] 00 the Medical morning. Branch apixaban 5 2022-0 Yes 5mg Take 1 [facility] rs mg tablet 5-18 tablet by ity o f 00:00: mouth in [place] the Medical morning Branch and 1 tablet in the evening. Indication s: ATRIAL FIBRILLATI ON atorvastati 0 Yes [id number] 40mg Take 1 [facility] n 40 mg 5-18 tablet by ity of tablet 00:00: mouth at [place] 00 bedtime. Medical Branch lisinopriL 0 Yes [id number] 2.5mg Take 1 [facility] 2.5 mg 5-18 tablet by ity of tablet 00:00: mouth in [place] 00 the Medical morning. Branch metoprolol 0 Yes [id number] 25mg Take 1 U nivers tartrate 25 5-18 tablet by ity of mg tablet 00:00: mouth in [place] 00 the Medical morning Branch and 1 tablet in the evening. blood sugar 0 Yes [id number] Check U nivers diagnostic 5-18 blood ity of strip 00:00: sugar 2 [place] 00 times a Medical day. Branch E11.9. Brand per insurance. Uses ACCU-CHEK machine Lancets Yes [id number] Check Unive rs Misc 5-18 blood ity of 00:00: sugar 2 [place] 00 times a Medical day. Branch E11.9. Brand per insurance. amiodarone Yes [id number] 200mg Take 1 [facility] 200 mg 5-18 tablet by ity of tablet 00:00: mouth in [place] 00 the Medical morning. Branch apixaban 5 0 Yes 5mg Take 1 Un[facility] rs mg tablet 5-18 tablet by ity o f 00:00: mouth in [place] 00 the Medical morning Branch and 1 tablet in the evening. Indication s: ATRIAL FIBRILLATI ON atorvastati Yes [id number] 40mg Take 1 [facility] n 40 mg 5-18 tablet by ity of tablet 00:00: mouth at [place] 00 bedtime. Medical Branch lisinopriL 0 Yes [id number] 2.5mg Take 1 [facility] 2.5 mg 5-18 tablet by ity of tablet 00:00: mouth in [place] 00 the Medical morning. Branch metoprolol 2022-0 Yes [id number] 25mg Take 1 U nivers tartrate 25 5-18 tablet by ity of mg tablet 00:00: mouth in [place] 00 the Medical morning Branch and 1 tablet in the evening. blood sugar 2022-0 Yes [id number] Check U nivers diagnostic 5-18 blood ity of strip 00:00: sugar 2 [place] 00 times a Medical day. Branch E11.9. Brand per insurance. Uses ACCU-CHEK machine Lancets Yes [id number] Check Unive rs Misc 5-18 blood ity of 00:00: sugar 2 [place] 00 times a Medical day. Branch E11.9. Brand per insurance. amiodarone Yes [id number] 200mg Take 1 [facility] 200 mg 5-18 tablet by ity of tablet 00:00: mouth in [place] 00 the Medical morning. Branch apixaban 5 Yes 5mg Take 1 Unive rs mg tablet 5-18 tablet by ity o f 00:00: mouth in [place] 00 the Medical morning Branch and 1 tablet in the evening. Indication s: ATRIAL FIBRILLATI ON atorvastati Yes [id number] 40mg Take 1 [facility] n 40 mg 5-18 tablet by ity of tablet 00:00: mouth at [place] 00 bedtime. Medical Branch lisinopriL Yes [id number] 2.5mg Take 1 [facility] 2.5 mg 5-18 tablet by ity of tablet 00:00: mouth in [place] 00 the Medical morning. Branch metoprolol Yes [id number] 25mg Take 1 U nivers tartrate 25 5-18 tablet by ity of mg tablet 00:00: mouth in [facility] 00 the Medical morning Branch and 1 tablet in the evening. atorvastati 2022- No [id number] 40mg Take 1 [facility] n 40 mg 5-18 08-18 tablet by ity of tablet 00:00: 00:00 mouth at [place] 00 :00 bedtime. Medical Branch lisinopriL 2022- No [id number] 2.5mg Take 1 [facility] 2.5 mg 5-18 08-18 tablet by ity of tablet 00:00: 00:00 mouth in [place] 00 :00 the Medical morning. Branch metoprolol 2022-2022- No [id number] 25mg Take 1 [facility] tartrate 25 5-18 08-18 tablet by it y of mg tablet 00:00: 00:00 mouth in [facility] 00 :00 the Medical morning Branch and 1 tablet in the evening. atorvastati 2022-2022- No [id number] 40mg Take 1 [facility] n 40 mg 5-18 08-18 tablet by ity of tablet 00:00: 00:00 mouth at [place] 00 :00 bedtime. Medical Branch lisinopriL 2022-2022- No [id number] 2.5mg Take 1 [facility] 2.5 mg 09-05-18 tablet by ity of tablet 00:00: 00:00 mouth in [place] 00 :00 the Medical morning. Branch metoprolol 2022-2022- No [id number] 25mg Take 1 [facility] tartrate 25 09-05- tablet by it y of mg tablet 00:00: 00:00 mouth in [place] 00 :00 the Medical morning Branch and 1 tablet in the evening. amiodarone 2022-2022- No [id number] 200mg Take 1 [facility] 200 mg 09-05-19 [...] s: ATRIAL FIBRILLATI ON amiodarone 2022-2022- No [id number] 200mg Take 1 [facility] 200 mg 09-05- [...] s: ATRIAL FIBRILLATI ON amiodarone 2022-2022- No [id number] 200mg Take 1 [facility] 200 mg -18 -19 tablet by ity of tablet 00:00: 00:00 mouth in [place] 00 :00 the Medical morning. Branch apixaban 5 2022-2022- No 5mg Take 1 Univ ers mg tablet 09-05-19 tablet by ity of 00:00: 00:00 mouth in [place] 00 :00 the Medical morning Branch and 1 tablet in the evening. Indication s: ATRIAL FIBRILLATI ON amiodarone 2022-0 2022- No [id number] 200mg Take 1 [facility] 200 mg 09-05-19 [...] ATRIAL FIBRILLATI ON blood sugar 2022- No [id number] Check Univers diagnostic 09-05 blood ity of strip 00:00: 00:00 sugar 2 [place] 00 :00 times a Medical day. Branch E11.9. Brand per insurance. Uses ACCU-CHEK machine divalproex 2022- No [id number] 250mg Take 1 Univers ER 250 mg 5-18 05-25 tablet by ity of 24 hr 00:00: 00:00 mouth [place] tablet 00 :00 every 24 Medical ([facility] ur) hours. gabapentin 2022- No [id number] 300mg Take 1 [facility] 300 mg 5-18 05-25 capsule by ity of capsule 00:00: 00:00 mouth in [place] 00 :00 the Medical morning Branch and 1 capsule at noon and 1 capsule in the evening. divalproex 2022- No [id number] 250mg Take 1 Univers ER 250 mg 5-18 05-25 tablet by ity of 24 hr 00:00: 00:00 mouth [place] tablet 00 :00 every 24 Medical ([facility] ur) hours. gabapentin 2022- No [id number] 300mg Take 1 [facility] 300 mg 5-18 05-25 capsule by ity of capsule 00:00: 00:00 mouth in [place] 00 :00 the Medical morning Branch and 1 capsule at noon and 1 capsule in the evening. divalproex 2022- No [id number] 250mg Take 1 Univers ER 250 mg 5-18 05-25 tablet by ity of 24 hr 00:00: 00:00 mouth [place] tablet 00 :00 every 24 Medical ([facility] ur) hours. gabapentin 2022- No [id number] 300mg Take 1 [facility] 300 mg 5-18 05-25 capsule by ity of capsule 00:00: 00:00 mouth in [place] 00 :00 the Medical morning Branch and 1 capsule at noon and 1 capsule in the evening. divalproex 2022-0 2022- No [id number] 250mg Take 1 [facility] ER 250 mg 5-18 05-25 tablet by ity of 24 hr 00:00: 00:00 mouth [place] tablet 00 :00 every 24 Medical (twenty-fo Branch ur) hours. gabapentin 2022-0 2022- No [id number] 300mg Take 1 [facility] 300 mg 5-18 [...] 08/14/22 at 0030, STAT divalproex 2023-0 Yes [id number] 250mg Take 1 Univers ER 250 mg 4-26 tablet by ity o f 24 hr 00:00: mouth [place] tablet 00 every 24 Medical (twenty-fo Branch ur) hours. divalproex 2023-0 Yes [id number] 250mg Take 1 Univers ER 250 mg 4-26 tablet by ity o f 24 hr 00:00: mouth [place] tablet 00 every 24 Medical (twenty-fo Branch ur) hours. divalproex 2023-0 Yes [id number] 250mg Take 1 Univers ER 250 mg 4-26 tablet by ity o f 24 hr 00:00: mouth [place] tablet 00 every 24 Medical (twenty-fo Branch ur) hours. divalproex 2023-0 Yes [id number] 250mg Take 1 Univers ER 250 mg 4-26 tablet by ity o f 24 hr 00:00: mouth [place] tablet 00 every 24 Medical (twenty-fo Branch ur) hours. divalproex 2023-0 Yes [id number] 250mg Take 1 [facility] ER 250 mg 4-26 tablet by ity o f 24 hr 00:00: mouth [place] tablet 00 every 24 Medical (twenty-fo Branch ur) hours. divalproex 2023-0 Yes [id number] 250mg Take 1 [facility] ER 250 mg 4-26 tablet by ity o f 24 hr 00:00: mouth [place] tablet 00 every 24 Medical (twenty-fo Branch ur) hours. divalproex 2023-0 Yes [id number] 250mg Take 1 [facility] ER 250 mg 4-26 tablet by ity o f 24 hr 00:00: mouth [place] tablet 00 every 24 Medical (twenty-fo Branch ur) hours. divalproex 2023-0 Yes [id number] 250mg Take 1 [facility] ER 250 mg 4-26 tablet by ity o f 24 hr 00:00: mouth [place] tablet 00 every 24 Medical (twenty-fo Branch ur) hours. divalproex 2023-0 Yes [id number] 250mg Take 1 [facility] ER 250 mg 4-26 tablet by ity o f 24 hr 00:00: mouth [place] tablet 00 every 24 Medical (twenty-fo Branch ur) hours. divalproex 2023-0 Yes [id number] 250mg Take 1 [facility] ER 250 mg 4-26 tablet by ity o f 24 hr 00:00: mouth [place] tablet 00 every 24 Medical (twenty-fo Branch ur) hours. divalproex 2023-0 Yes [id number] 250mg Take 1 [facility] ER 250 mg 4-26 tablet by ity o f 24 hr 00:00: mouth [place] tablet 00 every 24 Medical (twenty-fo Branch ur) hours. divalproex 2023-0 Yes [id number] 250mg Take 1 [facility] ER 250 mg 4-26 tablet by ity o f 24 hr 00:00: mouth [place] tablet 00 every 24 Medical (twenty-fo Branch ur) hours. divalproex 2022- No [id number] 250mg Take 1 [facility] ER 250 mg [...] Unive rs device/lanc 4-17 Each in [facility] ets 14:20: the [place] (ACCU-CHEK 29 morning Medica l SOFT DEV and 1 Each Branc h LANCETS at noon MISC) and 1 Each in the evening. lancing Yes 1{each} Take 1 [facility] the [place] (ACCU-CHEK 29 morning Medica l SOFT DEV and 1 Each Branc h LANCETS at noon MISC) and 1 Each in the evening. lancing Yes 1{each} Take 1 Unive rs device/lanc 4-17 Each in it o ets 14:20: the [place] (ACCU-CHEK 29 morning Medica l SOFT DEV and 1 Each Branc h LANCETS at noon MISC) and 1 Each in the evening. lancing Yes 1{each} Take 1 Unive rs device/lanc 4-17 Each in it o ets 14:20: the [place] (ACCU-CHEK 29 morning Medica l SOFT DEV and 1 Each Branc h LANCETS at noon MISC) and 1 Each in the evening. lancing Yes 1{each} Take 1 Unive rs device/lanc 4-17 Each in it o ets 14:20: the [place] (ACCU-CHEK 29 morning Medica l SOFT DEV and 1 Each Branc h LANCETS at noon MISC) and 1 Each in the evening. lancing Yes 1{each} Take 1 Unive rs device/lanc 4-17 Each in [facility] ets 14:20: the [place] (ACCU-CHEK 29 morning Medica l SOFT DEV and 1 Each Branc h LANCETS at noon MISC) and 1 Each in the evening. lancing Yes 1{each} Take 1 Unive rs device/lanc 4-17 Each in [facility] ets 14:20: the [place] (ACCU-CHEK 29 morning Medica l SOFT DEV and 1 Each Branc h LANCETS at noon MISC) and 1 Each in the evening. lancing 0 Yes 1{each} Take 1 Unive rs device/lanc 4-17 Each in [facility] ets 14:20: the [place] (ACCU-CHEK 29 morning Medica l SOFT DEV and 1 Each Branc h LANCETS at noon MISC) and 1 Each in the evening. lancing Yes 1{each} Take 1 Unive rs device/lanc 4-17 Each in [facility] ets 14:20: the [place] (ACCU-CHEK 29 morning Medica l SOFT DEV and 1 Each Branc h LANCETS at noon MISC) and 1 Each in the evening. lancing Yes 1{each} Take 1 Unive rs device/lanc 4-17 Each in [facility] ets 14:20: the [place] (ACCU-CHEK 29 morning Medica l SOFT DEV and 1 Each Branc h LANCETS at noon MISC) and 1 Each in the evening. lancing Yes 1{each} Take 1 Unive rs device/lanc 4-17 Each in [facility] ets 14:20: the [place] (ACCU-CHEK 29 morning Medica l SOFT DEV and 1 Each Branc h LANCETS at noon MISC) and 1 Each in the evening. lancing Yes 1{each} Take 1 Unive rs device/lanc 4-17 Each in [facility] ets 14:20: the [place] (ACCU-CHEK [...] 1 [facility] 4-[facility] the [place] (ACCU-CHEK 29 morning Medica l SOFT DEV and 1 Each Branc h LANCETS at noon MISC) and 1 Each in the evening. lancing Yes 1{each} Take 1 [facility] device[facility]lanc 4-17 [facility]: the [place] (ACCU-CHEK 29 morning Medica l SOFT DEV and 1 Each Branc h LANCETS at noon MISC) and 1 Each in the evening. lancing Yes 1{each} Take 1 Unive rs device/lanc 4-17 Each in [facility] ets 14:20: the [place] (ACCU-CHEK 29 morning Medica l SOFT DEV and 1 Each Branc h LANCETS at noon MISC) and 1 Each in the evening. lancing Yes 1{each} Take 1 Unive rs device/lanc 4-17 Each in [facility] ets 14:20: the [place] (ACCU-CHEK 29 morning Medica l SOFT DEV and 1 Each Branc h LANCETS at noon MISC) and 1 Each in the evening. lancing Yes 1{each} Take 1 Unive rs device/lanc 4-17 Each in [facility] ets 14:20: the [place] (ACCU-CHEK 29 morning Medica l SOFT DEV and 1 Each Branc h LANCETS at noon MISC) and 1 Each in the evening. lancing Yes 1{each} Take 1 [facility] device[facility]lanc 4-17 [facility]: the [place] (ACCU-CHEK 29 morning Medica l SOFT DEV and 1 Each Branc h LANCETS at noon MISC) and 1 Each in the evening. lancing Yes 1{each} Take 1 Unive rs device/lanc 4-17 Each in ity [facility] ets 14:20: the [place] (ACCU-CHEK 29 morning Medica l SOFT DEV and 1 Each Branc h LANCETS at [place] [facility] and 1 Each in the evening. lancing 2022-0 Yes 1{each} Take 1 Unive rs device/lanc 4-17 Each in it o ets 14:20: the [place] (ACCU-CHEK 29 morning Medica l SOFT DEV and 1 Each Branc h LANCETS at noon [facility] and 1 Each in the evening. lancing 2022-0 Yes 1{each} Take 1 Unive rs device/lanc 4-17 Each in ity o ets 14:20: the [place] (ACCU-CHEK 29 morning Medica l SOFT DEV and 1 Each Branc h LANCETS at on [facility] and 1 Each in the evening. lisinopriL 2022-0 202- No 2.5mg Take 1 Uni vers [...] of mg tablet 14:01: 00:00 mouth in [facility] as 18 :00 the Medical [...] of mg tablet 14:01: 00:00 mouth in [facility] as 18 :00 the Medical [...] ity of capsule 14:: 00:00 mouth in [place] 18 :00 the [...] of mg tablet 14:01: 00:00 mouth in [facility] as 18 :00 the Medical morning Branch and 1 tablet in the evening. SERTraline 3-0 2023- No 25mg Take 1 Univ ers 25 mg 4-17 04-17 tablet by ity of tablet 14:01: 00:00 mouth in [place] 12 :00 the Medical morning. Branch SERTraline 2022- No 25mg Take 1 Univ ers 25 mg 4-05 08-17 tablet by ity of tablet 14:01: [...] [place] 61 Medical Branch insulin NPH 0 Yes inject Univ ers human -17 under the ity of isophane 13:33: skin. [...] Abdi (HUMULIN N 22 Unsure of Medi dilhsad PEN [place]) what kind Branch of humulin [...] N 22 Unsure of Medi dilshad PEN ID) what kind Branch of humulin insulin he takes insulin NPH 2023-0 Yes inject Univ ers human 4-17 under the ity of isophane 13:33: skin. Abdi (HUMULIN N 22 Unsure of Medi dilshad PEN ID) what kind Branch of humulin insulin he takes insulin NPH 2023-0 Yes inject Univ ers human 4-17 under the ity of isophane 13:33: skin. Abdi (HUMULIN N 22 Unsure of Medi dilshad PEN ID) what kind Branch of humulin insulin he takes insulin NPH 2023-0 Yes inject Univ ers human 4-17 under the ity of isophane 13:33: skin. Abdi (HUMULIN N 22 Unsure of Medi dilshad PEN ID) what kind Branch of humulin insulin he takes insulin NPH 2023-0 Yes inject Univ ers human 4-17 under the ity of isophane 13:33: skin. Abdi (HUMULIN N 22 Unsure of Medi dilshad PEN ID) what kind Branch of humulin insulin he takes insulin NPH 3-0 Yes inject Univ ers human 4-17 under the ity of isophane 13:33: skin. Abdi (HUMULIN N 22 Unsure of Medi dilshad PEN ID) what kind Branch of humulin insulin he takes insulin NPH 2023-0 Yes inject Univ ers human 4-17 under the ity of isophane 13:33: skin. Abdi (HUMULIN N 22 Unsure of Medi dilshad PEN ID) what kind Branch of humulin insulin he takes SEMGLEE,INS 2023-0 Yes inject Univ ers ULIN 4-17 under the ity of GLARGINE-YF 13:33: skin. Shellie Kumari , [place] 22 directed Medical Branch insulin NPH 2023-0 Yes inject Univ ers human 4-17 under the ity of isophane 13:33: skin. Abdi (HUMULIN N 22 Unsure of Medi dilshad PEN ID) what kind Branch of humulin insulin he takes SEMGLEE,INS 2023-0 Yes inject Univ ers ULIN 4-17 under the ity of GLARGINE-YF 13:33: skin. As AURELIO Quintan[place] 22 directed Medical Branch insulin NPH 2022-0 Yes inject Univ ers human 4-17 under the ity of isophane 13:33: skin. Abdi (HUMULIN N 22 Unsure of Medi dilshad PEN ID) what kind Branch of humulin insulin he takes SEMGLEE,INS 2023-0 Yes inject Univ ers ULIN 4-17 under the ity of GLARGINE-YF 13:33: skin. As AURELIO [place] 22 directed Medical Branch insulin NPH 2022-0 Yes inject Univ ers human 4-17 under the ity of isophane 13:33: skin. Abdi (HUMULIN N 22 Unsure of Medi dilshad PEN ID) what kind Branch of humulin insulin he takes SEMGLEE,INS 2023-0 Yes inject Univ ers ULIN 4-17 under the ity of GLARGINE-YF 13:33: skin. As AURELIO [place] 22 directed Medical Branch insulin NPH 2022-0 Yes inject Univ ers human 4-17 under the ity of isophane 13:33: skin. Abdi (HUMULIN N 22 Unsure of Medi dilshad PEN ID) what kind Branch of humulin insulin he takes SEMGLEE,INS 2023-0 Yes inject Univ ers ULIN 4-17 under the ity of GLARGINE-YF 13:33: skin. As AURELIO [place] 22 directed Medical Branch insulin NPH 2022-0 Yes inject Univ ers human 4-17 under the ity of isophane 13:33: skin. Abdi (HUMULIN N 22 Unsure of Medi dilshad PEN ID) what kind Branch of humulin insulin he takes SEMGLEE,INS 2023-0 Yes inject Univ ers ULIN 4-17 under the ity of GLARGINE-YF 13:33: skin. As AURELIO [place] 22 directed Medical Branch insulin NPH 3-0 Yes inject Univ ers human 4-17 under the ity of isophane 13:33: skin. Abdi (HUMULIN N 22 Unsure of Medi dilshad PEN ID) what kind Branch of humulin insulin he takes SEMGLEE,INS 2023-0 Yes inject Univ ers ULIN 4-17 under the ity of GLARGINE-YF 13:33: skin. As AURELIO [place] 22 directed Medical Branch insulin NPH 2022-0 Yes inject Univ ers human 4-17 under the ity of isophane 13:33: skin. Abdi (HUMULIN N 22 Unsure of Medi dilshad PEN ID) what kind Branch of humulin insulin he takes SEMGLEE,INS 2022-0 Yes inject Univ ers ULIN 4-17 under the ity of GLARGINE-YF 13:33: skin. As AURELIO [place] 22 directed Medical Branch insulin NPH 2022-0 Yes inject Univ ers human 4-17 under the ity of isophane 13:33: skin. Abdi (HUMULIN N 22 Unsure of Medi dilshad PEN ID) what kind Branch of humulin insulin he takes SEMGLEE,INS 3-0 Yes inject Univ ers ULIN 4-17 under the ity of GLARGINE-YF 13:33: skin. As AURELIO [place] 22 directed Medical Branch insulin NPH 2022-0 Yes inject Univ ers human 4-17 under the ity of isophane 13:33: skin. Abdi (HUMULIN N 22 Unsure of Medi dilshad PEN ID) what kind Branch of humulin insulin he takes SEMGLEE,INS 3-0 Yes inject Univ ers ULIN 4-17 under the ity of GLARGINE-YF 13:33: skin. As AURELIO [place] 22 directed Medical Branch insulin NPH 2022-0 Yes inject Univ ers human 4-17 under the ity of isophane 13:33: skin. bAdi (HUMULIN N 22 Unsure of Medi dilshad PEN ID) what kind Branch of humulin insulin he takes SEMGLEE,INS 3-0 Yes inject Univ ers ULIN 4-17 under the ity of GLARGINE-YF 13:33: skin. As AURELIO [place] 22 directed Medical Branch insulin NPH 2022-0 Yes inject Univ ers human 4-17 under the ity of isophane 13:33: skin. Abdi (HUMULIN N 22 Unsure of Medi dilshad PEN ID) what kind Branch of humulin insulin he takes SEMGLEE,INS 2023-0 Yes inject Univ ers ULIN 4-17 under the ity of GLARGINE-YF 13:33: skin. As AURELIO [place]an[place] 22 directed Medical Branch insulin NPH 3-0 Yes inject Univ ers human 4-17 under the ity of isophane 13:33: skin. Abdi (HUMULIN N 22 Unsure of Medi dilshad PEN ID) what kind Branch of humulin insulin he takes SEMGLEE,INS 2023-0 Yes inject Univ ers ULIN 4-17 under the ity of GLARGINE-YF 13:33: skin. As AURELIO [place]an[place] 22 directed Medical Branch insulin NPH 2022-0 Yes inject Univ ers human 4-17 under the ity of isophane 13:33: skin. Abdi (HUMULIN N 22 Unsure of [facility] dilshad PEN ID) what kind Branch of humulin insulin he takes SEMGLEE,INS 2023-0 Yes inject Univ ers ULIN 4-17 under the ity of GLARGINE-YF 13:33: skin. As AURELIO [place]an[place] 22 directed Medical Branch insulin NPH 2022-0 Yes inject Univ ers human 4-17 under the ity of isophane 13:33: skin. Abdi (HUMULIN N 22 Unsure of [facility] dilshad PEN ID) what kind Branch of humulin insulin he takes SEMGLEE,INS 2023-0 Yes inject Univ ers ULIN 4-17 under the ity of GLARGINE-YF 13:33: skin. As AURELIO [place] 22 directed Medical Branch insulin NPH 2022-0 Yes inject Univ ers human 4-17 under the ity of isophane 13:33: skin. Abdi (HUMULIN N 22 Unsure of [facility] dilshad PEN ID) what kind Branch of humulin insulin he takes SEMGLEE,INS 2023-0 Yes inject Univ ers ULIN 4-17 under the ity of GLARGINE-YF 13:33: skin. As AURELIO [place]an[place] 22 directed Medical Branch insulin NPH 2022-0 Yes inject Univ ers human 4-17 under the ity of isophane 13:33: skin. Abdi (HUMULIN N 22 Unsure of [facility] dilshad PEN ID) what kind Branch of humulin insulin he takes SEMGLEE,INS 2023-0 Yes inject Univ ers ULIN 4-17 under the ity of GLARGINE-YF 13:33: skin. As AURELIO [place] 22 directed Medical Branch insulin NPH 2022-0 Yes inject Univ ers human 4-17 under the ity of isophane 13:33: skin. Abdi (HUMULIN N 22 Unsure of [facility] dilshad PEN ID) what kind Branch of humulin insulin he takes SEMGLEE,INS 2023-0 Yes inject Univ ers ULIN 4-17 under the ity of GLARGINE-YF 13:33: skin. As AURELIO [place] 22 directed Medical Branch insulin NPH 2022-0 Yes inject Univ ers human 4-17 under the ity of isophane 13:33: skin. Abdi (HUMULIN N 22 Unsure of [facility] dilshad PEN ID) what kind Branch of humulin insulin he takes SEMGLEE,INS 3-0 Yes inject Univ ers ULIN 4-17 under the ity of GLARGINE-YF 13:33: skin. As AURELIO [place]an[place] 22 directed Medical Branch insulin NPH 2022-0 Yes inject Univ ers human 4-17 under the ity of isophane 13:33: skin. Abdi (HUMULIN N 22 Unsure of [facility] dilshad PEN ID) what kind Branch of humulin insulin he takes SEMGLEE,INS 2023-0 Yes inject Univ ers ULIN 4-17 under the ity of GLARGINE-YF 13:33: skin. As AURELIO [place]an[place] 22 directed Medical Branch insulin NPH 2022-0 Yes inject Univ ers human 4-17 under the ity of isophane 13:33: skin. Abdi (HUMULIN N 22 Unsure of [facility] dilshad PEN ID) what kind Branch of humulin insulin he takes SEMGLEE,INS 2023-0 Yes inject Univ ers ULIN 4-17 under the ity of GLARGINE-YF 13:33: skin. As AURELIO [place] 22 directed Medical Branch insulin NPH 2022-0 Yes inject Univ ers human 4-17 under the ity of isophane 13:33: skin. Abdi (HUMULIN N 22 Unsure of [facility] dilshad PEN ID) what kind Branch of humulin insulin he takes SEMGLEE,INS 2023-0 Yes inject Univ ers ULIN 4-17 under the ity of GLARGINE-YF 13:33: skin. As AURELIO Quintan[place] 22 directed Medical Branch insulin NPH 2022-0 Yes inject Univ ers human 4-17 under the ity of isophane 13:33: skin. Abdi (HUMULIN N 22 Unsure of Medi dilshad PEN ID) what kind Branch of humulin insulin he takes SEMGLEE,INS 2023-0 Yes inject Univ ers ULIN 4-17 under the ity of GLARGINE-YF 13:33: skin. As AURELIO [place]an[place] 22 directed Medical Branch insulin NPH 2022-0 Yes inject Univ ers human 4-17 under the ity of isophane 13:33: skin. Abdi (HUMULIN N 22 Unsure of Medi dilshad PEN ID) what kind Branch of humulin insulin he takes SEMGLEE,INS 2023-0 Yes inject Univ ers ULIN 4-17 under the ity of GLARGINE-YF 13:33: skin. As AURELIO [place] 22 directed Medical Branch insulin NPH 2022-0 Yes inject Univ ers human 4-17 under the ity of isophane 13:33: skin. Abdi (HUMULIN N 22 Unsure of [facility] dilshad PEN ID) what kind Branch of humulin insulin he takes SEMGLEE,INS 2023-0 Yes inject Univ ers ULIN 4-17 under the ity of GLARGINE-YF 13:33: skin. As AURELIO [place] 22 directed Medical Branch insulin NPH 2022-0 Yes inject Univ ers human 4-17 under the ity of isophane 13:33: skin. Abdi (HUMULIN N 22 Unsure of [facility] dilshad PEN ID) what kind Branch of humulin insulin he takes SEMGLEE,INS 2023-0 Yes inject Univ ers ULIN 4-17 under the ity of GLARGINE-YF 13:33: skin. As AURELIO Quintanilla 22 directed Medical Branch insulin NPH 2022-0 Yes inject Univ ers human 4-17 under the ity of isophane 13:33: skin. Abdi (HUMULIN N 22 Unsure of Medi dilshad PEN ID) what kind Branch of humulin insulin he [...] by ity of capsule 13:23: mouth 4 [place] [address] (four) Medical times Branch daily. cephALEXin 2023-0 [...] by ity of capsule 13:23: mouth 4 [place] [address] (four) Medical times Branch daily. cephALEXin 2023-0 Yes 500mg Take 1 Univ ers 500 mg 4-17 capsule by ity of capsule 13:23: mouth 4 [place] [address] (four) Medical times Branch daily. cephALEXin 2023-0 Yes 500mg Take 1 Univ ers 500 mg 4-17 capsule by ity of capsule 13:23: mouth 4 [place] [address] (four) Medical times Branch daily. cephALEXin 2023-0 [...] by ity of capsule 13:23: mouth 4 [place] [address] ([facility]) Medical times Branch daily. cephALEXin 2023-0 Yes 500mg Take 1 Univ ers 500 mg 4-17 capsule by ity of capsule 13:23: mouth 4 [place] [address] (four) Medical times Branch daily. cephALEXin 2023-0 Yes 500mg Take 1 Univ ers 500 mg 4-17 capsule by ity of capsule 13:23: mouth 4 [place] [address] (four) Medical times Branch daily. cephALEXin 2023-0 Yes 500mg Take 1 Univ ers 500 mg 4-17 capsule by ity of capsule 13:23: mouth 4 [place] [address] (four) Medical times Branch daily. cephALEXin 2023-0 Yes 500mg Take 1 Univ ers 500 mg 4-17 capsule by ity of capsule 13:23: mouth 4 [place] [address] (four) Medical times Branch daily. cephALEXin 2023-0 Yes 500mg Take 1 Univ ers 500 mg 4-17 capsule by ity of capsule 13:23: mouth 4 [place] [address] (four) Medical times Branch daily. cephALEXin 2023-0 Yes 500mg Take 1 Univ ers 500 mg 4-17 capsule by ity of capsule 13:23: mouth 4 [place] [address] (four) Medical times Branch daily. cephALEXin 2023-0 Yes 500mg Take 1 Univ ers 500 mg 4-17 capsule by ity of capsule 13:23: mouth 4 [place] [address] ([facility]) Medical times Branch daily. gabapentin 2023-0 Yes [id number] 300mg Take 1 [facility] 300 mg 4-17 capsule by ity of capsule 00:00: mouth in [place] [address] the Medical morning Branch and 1 capsule at noon and 1 capsule in the evening. amiodarone 2023-0 Yes [id number] 200mg Take 1 Univers 200 mg 4-17 tablet by ity of tablet 00:00: mouth in [place] [address] the Medical morning. Branch apixaban 5 3-0 Yes 5mg Take 1 Unive rs mg tablet 4-17 tablet by ity o f 00:00: mouth in [place] [address] the Medical morning Branch and 1 tablet in the evening. Indication s: ATRIAL FIBRILLATI ON atorvastati 2022-0 Yes [id number] 40mg Take 1 Univers n 40 mg 4-17 tablet by ity of tablet 00:00: mouth at [place] [address] bedtime. Medical Branch SERTraline 2023-0 Yes [id number] 100mg Take 1 Univers 100 mg 4-17 tablet by ity of tablet 00:00: mouth in [place] the morning. Branch lisinopriL 0 Yes [id number] 2.5mg Take 1 Univers 2.5 mg 4-17 tablet by ity of tablet 00:00: mouth in [place] the morning. Branch metoprolol 0 Yes [id number] 25mg Take 1 U nivers tartrate 25 4-17 tablet by ity of mg tablet 00:00: mouth in [facility] 00 the morning Branch and 1 tablet in the evening. blood sugar 0 Yes [id number] Check U nivers diagnostic 4-17 blood ity of strip 00:00: sugar 2 [place] 00 times a Medical day. Branch E11.9. Brand per insurance. Uses ACCU-CHEK machine Lancets Yes [id number] Check Unive rs Misc 4-17 blood ity of 00:00: sugar 2 [place] times a Medical day. Branch E11.9. Brand per insurance. gabapentin Yes [id number] 300mg Take 1 Univers 300 mg 4-17 capsule by ity of capsule 00:00: mouth in [place] the morning Branch and 1 capsule at noon and 1 capsule in the evening. amiodarone Yes [id number] 200mg Take 1 [facility] 200 mg 4-17 tablet by ity of tablet 00:00: mouth in [place] the morning. Branch apixaban 5 0 Yes 5mg Take 1 Unive rs mg tablet 4-17 tablet by ity o f 00:00: mouth in [place] the morning Branch and 1 tablet in the evening. Indication s: ATRIAL FIBRILLATI ON atorvastati 0 Yes [id number] 40mg Take 1 [facility] 40 mg 4-17 tablet by [facility] of tablet 00:00: mouth at [place] 00 bedtime. Medical Branch SERTraline Yes [id number] 100mg Take 1 [facility] 100 mg 4-17 tablet by [facility] of tablet 00:00: mouth in [place] 00 the morning. Branch lisinopriL Yes [id number] 2.5mg Take 1 [facility] 2.5 mg 4-17 tablet by [facility] of tablet 00:00: mouth in [place] 00 the Medical morning. Branch metoprolol Yes [id number] 25mg Take 1 [facility] nivers tartrate 25 4-17 tablet by ity of mg tablet 00:00: mouth in [facility] s the morning Branch and 1 tablet in the evening. blood sugar 0 Yes [id number] Check U nivers diagnostic 4-17 blood ity of strip 00:00: sugar 2 [place] 00 times a Medical day. Branch E11.9. Brand per insurance. Uses ACCU-CHEK machine Lancets 0 Yes [id number] Check Unive rs Misc 4-17 blood ity of 00:00: sugar 2 [place] times a Medical day. Branch E11.9. Brand per insurance. gabapentin Yes [id number] 300mg Take 1 [facility] 300 mg 4-17 capsule by ity of capsule 00:00: mouth in [place] the morning Branch and 1 capsule at noon and 1 capsule in the evening. amiodarone Yes [id number] 200mg Take 1 [facility] 200 mg 4-17 tablet by ity of tablet 00:00: mouth in [place] the morning. Branch apixaban 5 0 Yes 5mg Take 1 [facility] rs mg tablet 4-17 tablet by ity o f 00:00: mouth in [place] the morning Branch and 1 tablet in the evening. Indication s: ATRIAL FIBRILLATI ON atorvastati 0 Yes [id number] 40mg Take 1 [facility] n 40 mg 4-17 tablet by ity of tablet 00:00: mouth at [place] [address] bedtime. Medical Branch SERTraline 0 Yes [id number] 100mg Take 1 [facility] 100 mg 4-17 tablet by ity of tablet 00:00: mouth in [place] 00 the morning. Branch lisinopriL 0 Yes [id number] 2.5mg Take 1 [facility] 2.5 mg 4-17 tablet by ity of tablet 00:00: mouth in [place] 00 the morning. Branch metoprolol 0 Yes [id number] 25mg Take 1 [facility] nivers tartrate 25 4-17 tablet by ity of mg tablet 00:00: mouth in [facility] 00 the morning Branch and 1 tablet in the evening. blood sugar 0 Yes [id number] Check U nivers diagnostic 4-17 blood ity of strip 00:00: sugar 2 [place] times a Medical day. Branch E11.9. Brand per insurance. Uses ACCU-CHEK machine Lancets Yes [id number] Check Unive rs Misc 4-17 blood ity of 00:00: sugar 2 [place] 00 times a Medical day. Branch E11.9. Brand per insurance. gabapentin Yes [id number] 300mg Take 1 [facility] 300 mg 4-17 capsule by ity of capsule 00:00: mouth in [place] 00 the morning Branch and 1 capsule at noon and 1 capsule in the evening. amiodarone Yes [id number] 200mg Take 1 [facility] 200 mg 4-17 tablet by ity of tablet 00:00: mouth in [place] 00 the morning. Branch apixaban 5 Yes 5mg Take 1 [facility] rs mg tablet 4-17 tablet by ity o f 00:00: mouth in [place] the morning Branch and 1 tablet in the evening. Indication s: ATRIAL FIBRILLATI ON atorvastati Yes [id number] 40mg Take 1 [facility] n 40 mg 4-17 tablet by ity of tablet 00:00: mouth at [place] [address] bedtime. Medical Branch SERTraline Yes [id number] 100mg Take 1 [facility] 100 mg 4-17 tablet by ity of tablet 00:00: mouth in [place] the morning. Branch lisinopriL Yes [id number] 2.5mg Take 1 [facility] 2.5 mg 4-17 tablet by ity of tablet 00:00: mouth in [place] 00 the morning. Branch metoprolol Yes [id number] 25mg Take 1 U nivers tartrate 25 4-17 tablet by ity of mg tablet 00:00: mouth in [facility] 00 the morning Branch and 1 tablet in the evening. blood sugar Yes [id number] Check U nivers diagnostic 4-17 blood ity of strip 00:00: sugar 2 [place] 00 times a Medical day. Branch E11.9. Brand per insurance. Uses ACCU-CHEK machine Lancets 0 Yes [id number] Check Unive rs Misc 4-17 blood ity of 00:00: sugar 2 [place] 00 times a Medical day. Branch E11.9. Brand per insurance. gabapentin Yes [id number] 300mg Take 1 [facility] 300 mg 4-17 capsule by ity of capsule 00:00: mouth in [place] the morning Branch and 1 capsule at noon and 1 capsule in the evening. amiodarone 2022-0 Yes [id number] 200mg Take 1 [facility] 200 mg 4-17 tablet by ity of tablet 00:00: mouth in [place] the morning. Branch apixaban 5 2022-0 Yes 5mg Take 1 [facility] rs mg tablet 4-17 tablet by ity o f 00:00: mouth in [place] the morning Branch and 1 tablet in the evening. Indication s: ATRIAL FIBRILLATI ON atorvastati Yes [id number] 40mg Take 1 [facility] n 40 mg 4-17 tablet by ity of tablet 00:00: mouth at [place] [address] bedtime. Medical Branch SERTraline Yes [id number] 100mg Take 1 [facility] 100 mg 4-17 tablet by ity of tablet 00:00: mouth in [place] the morning. Branch lisinopriL Yes [id number] 2.5mg Take 1 [facility] 2.5 mg 4-17 tablet by ity of tablet 00:00: mouth in [place] the morning. Branch metoprolol Yes [id number] 25mg Take 1 U nivers tartrate 25 4-17 tablet by ity of mg tablet 00:00: mouth in [facility] the Branch and 1 tablet in the evening. blood sugar 0 Yes [id number] Check U nivers diagnostic 4-17 blood ity of strip 00:00: sugar 2 [place] 00 times a Medical day. Branch E11.9. Brand per insurance. Uses ACCU-CHEK machine Lancets 0 Yes [id number] Check Unive rs Misc 4-17 blood ity of 00:00: sugar 2 [place] 00 times a Medical day. Branch E11.9. Brand per insurance. gabapentin 2022-0 Yes [id number] 300mg Take 1 [facility] 300 mg 4-17 capsule by ity of capsule 00:00: mouth in [place] the morning Branch and 1 capsule at noon and 1 capsule in the evening. amiodarone 2022-0 Yes [id number] 200mg Take 1 [facility] 200 mg 4-17 tablet by ity of tablet 00:00: mouth in [place] the morning. Branch apixaban 5 0 Yes 5mg Take 1 [facility] rs mg tablet 4-17 tablet by ity o f 00:00: mouth in [place] the morning Branch and 1 tablet in the evening. Indication s: ATRIAL FIBRILLATI ON atorvastati Yes [id number] 40mg Take 1 [facility] n 40 mg 4-17 tablet by ity of tablet 00:00: mouth at [place] [address] bedtime. Medical Branch SERTraline Yes [id number] 100mg Take 1 [facility] 100 mg 4-17 tablet by ity of tablet 00:00: mouth in [place] the morning. Branch lisinopriL Yes [id number] 2.5mg Take 1 [facility] 2.5 mg 4-17 tablet by ity of tablet 00:00: mouth in [place] the morning. Branch metoprolol Yes [id number] 25mg Take 1 U nivers tartrate 25 4-17 tablet by ity of mg tablet 00:00: mouth in [facility] the morning Branch and 1 tablet in the evening. blood sugar Yes [id number] Check U nivers diagnostic 4-17 blood ity of strip 00:00: sugar 2 [place] times a Medical day. Branch E11.9. Brand per insurance. Uses ACCU-CHEK machine Lancets Yes [id number] Check Unive rs Misc 4-17 blood ity of 00:00: sugar 2 [place] 00 times a Medical day. Branch E11.9. Brand per insurance. gabapentin Yes [id number] 300mg Take 1 [facility] 300 mg 4-17 capsule by ity of capsule 00:00: mouth in [place] the morning Branch and 1 capsule at noon and 1 capsule in the evening. amiodarone Yes [id number] 200mg Take 1 [facility] 200 mg 4-17 tablet by ity of tablet 00:00: mouth in [place] the morning. Branch apixaban 5 0 Yes 5mg Take 1 [facility] rs mg tablet 4-17 tablet by ity o f 00:00: mouth in [place] the morning Branch and 1 tablet in the evening. Indication s: ATRIAL FIBRILLATI ON atorvastati Yes [id number] 40mg Take 1 [facility] n 40 mg 4-17 tablet by ity of tablet 00:00: mouth at [place] [address] bedtime. Medical Branch SERTraline Yes [id number] 100mg Take 1 [facility] 100 mg 4-17 tablet by ity of tablet 00:00: mouth in [place] the morning. Branch lisinopriL Yes [id number] 2.5mg Take 1 [facility] 2.5 mg 4-17 tablet by ity of tablet 00:00: mouth in [place] the morning. Branch metoprolol Yes [id number] 25mg Take 1 U nivers tartrate 25 4-17 tablet by ity of mg tablet 00:00: mouth in [facility] 00 the morning Branch and 1 tablet in the evening. blood sugar Yes [id number] Check U nivers diagnostic 4-17 blood ity of strip 00:00: sugar 2 [place] 00 times a Medical day. Branch E11.9. Brand per insurance. Uses ACCU-CHEK machine Lancets Yes [id number] Check Unive rs Misc 4-17 blood ity of 00:00: sugar 2 [place] times a Medical day. Branch E11.9. Brand per insurance. gabapentin Yes [id number] 300mg Take 1 [facility] 300 mg 4-17 capsule by ity of capsule 00:00: mouth in [place] the morning Branch and 1 capsule at noon and 1 capsule in the evening. amiodarone Yes [id number] 200mg Take 1 [facility] 200 mg 4-17 tablet by ity of tablet 00:00: mouth in [place] the morning. Branch apixaban 5 0 Yes 5mg Take 1 [facility] rs mg tablet 4-17 tablet by ity o f 00:00: mouth in [place] the morning Branch and 1 tablet in the evening. Indication s: ATRIAL FIBRILLATI ON atorvastati Yes [id number] 40mg Take 1 [facility] n 40 mg 4-17 tablet by ity of tablet 00:00: mouth at [place] [address] bedtime. Medical Branch SERTraline Yes [id number] 100mg Take 1 [facility] 100 mg 4-17 tablet by ity of tablet 00:00: mouth in [place] the morning. Branch lisinopriL 2022-0 Yes [id number] 2.5mg Take 1 [facility] 2.5 mg 4-17 tablet by ity of tablet 00:00: mouth in [place] the morning. Branch metoprolol 0 Yes [id number] 25mg Take 1 U nivers tartrate 25 4-17 tablet by ity of mg tablet 00:00: mouth in [facility] 00 the morning Branch and 1 tablet in the evening. blood sugar 2022-0 Yes [id number] Check U nivers diagnostic 4-17 blood ity of strip 00:00: sugar 2 [place] times a Medical day. Branch E11.9. Brand per insurance. Uses ACCU-CHEK machine Lancets Yes [id number] Check Unive rs Misc 4-17 blood ity of 00:00: sugar 2 [place] times a Medical day. Branch E11.9. Brand per insurance. gabapentin Yes [id number] 300mg Take 1 [facility] 300 mg 4-17 capsule by ity of capsule 00:00: mouth in [place] 00 the morning Branch and 1 capsule at noon and 1 capsule in the evening. amiodarone 0 Yes [id number] 200mg Take 1 [facility] 200 mg 4-17 tablet by ity of tablet 00:00: mouth in [place] the morning. Branch apixaban 5 0 Yes 5mg Take 1 [facility] rs mg tablet 4-17 tablet by ity o f 00:00: mouth in [place] the morning Branch and 1 tablet in the evening. Indication s: ATRIAL FIBRILLATI ON atorvastati 2022-0 Yes [id number] 40mg Take 1 [facility] n 40 mg 4-17 tablet by ity of tablet 00:00: mouth at [place] [address] bedtime. Medical Branch SERTraline 0 Yes [id number] 100mg Take 1 [facility] 100 mg 4-17 tablet by ity of tablet 00:00: mouth in [place] 00 the morning. Branch lisinopriL 2022-0 Yes [id number] 2.5mg Take 1 [facility] 2.5 mg 4-17 tablet by ity of tablet 00:00: mouth in [place] 00 the Medical morning. Branch metoprolol 2022-0 Yes [id number] 25mg Take 1 U nivers tartrate 25 4-17 tablet by ity of mg tablet 00:00: mouth in [place] [address] the Medical morning Branch and 1 tablet in the evening. blood sugar Yes [id number] Check U nivers diagnostic 4-17 blood ity of strip 00:00: sugar 2 [place] times a Medical day. Branch E11.9. Brand per insurance. Uses ACCU-CHEK machine Lancets Yes [id number] Check Unive rs Misc 4-17 blood ity of 00:00: sugar 2 [place] times a Medical day. Branch E11.9. Brand per insurance. gabapentin Yes [id number] 300mg Take 1 [facility] 300 mg 4-17 capsule by ity of capsule 00:00: mouth in [place] the morning Branch and 1 capsule at noon and 1 capsule in the evening. amiodarone Yes [id number] 200mg Take 1 [facility] 200 mg 4-17 tablet by ity of tablet 00:00: mouth in [place] the morning. Branch apixaban 5 Yes 5mg Take 1 [facility] rs mg tablet 4-17 tablet by ity o f 00:00: mouth in [place] the morning Branch and 1 tablet in the evening. Indication s: ATRIAL FIBRILLATI ON atorvastati Yes [id number] 40mg Take 1 [facility] n 40 mg 4-17 tablet by ity of tablet 00:00: mouth at [place] [address] bedtime. Medical Branch SERTraline Yes [id number] 100mg Take 1 [facility] 100 mg 4-17 tablet by ity of tablet 00:00: mouth in [place] the morning. Branch lisinopriL Yes [id number] 2.5mg Take 1 [facility] 2.5 mg 4-17 tablet by ity of tablet 00:00: mouth in [place] 00 the Medical morning. Branch metoprolol Yes [id number] 25mg Take 1 U nivers tartrate 25 4-17 tablet by ity of mg tablet 00:00: mouth in [facility] the morning Branch and 1 tablet in the evening. blood sugar 2022-0 Yes [id number] Check U nivers diagnostic 4-17 blood ity of strip 00:00: sugar 2 [place] 00 times a Medical day. Branch E11.9. Brand per insurance. Uses ACCU-CHEK machine Lancets Yes [id number] Check Unive rs Misc 4-17 blood ity of 00:00: sugar 2 [place] 00 times a Medical day. Branch E11.9. Brand per insurance. gabapentin 2022-0 Yes [id number] 300mg Take 1 [facility] 300 mg 4-17 capsule by ity of capsule 00:00: mouth in [place] the morning Branch and 1 capsule at noon and 1 capsule in the evening. amiodarone Yes [id number] 200mg Take 1 [facility] 200 mg 4-17 tablet by ity of tablet 00:00: mouth in [place] the morning. Branch apixaban 5 0 Yes 5mg Take 1 Un[facility] rs mg tablet 4-17 tablet by ity o f 00:00: mouth in [place] the morning Branch and 1 tablet in the evening. Indication s: ATRIAL FIBRILLATI ON atorvastati Yes [id number] 40mg Take 1 [facility] n 40 mg 4-17 tablet by ity of tablet 00:00: mouth at [place] [address] bedtime. Medical Branch SERTraline Yes [id number] 100mg Take 1 [facility] 100 mg 4-17 tablet by ity of tablet 00:00: mouth in [place] the morning. Branch lisinopriL Yes [id number] 2.5mg Take 1 [facility] 2.5 mg 4-17 tablet by ity of tablet 00:00: mouth in [place] the morning. Branch metoprolol 0 Yes [id number] 25mg Take 1 U nivers tartrate 25 4-17 tablet by ity of mg tablet 00:00: mouth in [facility] the morning Branch and 1 tablet in the evening. blood sugar 2022-0 Yes [id number] Check U nivers diagnostic 4-17 blood ity of strip 00:00: sugar 2 [place] 00 times a Medical day. Branch E11.9. Brand per insurance. Uses ACCU-CHEK machine Lancets 2022-0 Yes [id number] Check Unive rs Misc 4-17 blood ity of 00:00: sugar 2 [place] 00 times a Medical day. Branch E11.9. Brand per insurance. gabapentin 2022-0 Yes [id number] 300mg Take 1 [facility] 300 mg 4-17 capsule by ity of capsule 00:00: mouth in [place] the morning Branch and 1 capsule at noon and 1 capsule in the evening. amiodarone Yes [id number] 200mg Take 1 [facility] 200 mg 4-17 tablet by ity of tablet 00:00: mouth in [place] 00 the morning. Branch apixaban 5 0 Yes 5mg Take 1 Un[facility] rs mg tablet 4-17 tablet by ity o f 00:00: mouth in [place] the morning Branch and 1 tablet in the evening. Indication s: ATRIAL FIBRILLATI ON atorvastati 0 Yes [id number] 40mg Take 1 [facility] n 40 mg 4-17 tablet by ity of tablet 00:00: mouth at [place] [address] bedtime. Medical Branch SERTraline Yes [id number] 100mg Take 1 [facility] 100 mg 4-17 tablet by ity of tablet 00:00: mouth in [place] 00 the morning. Branch lisinopriL Yes [id number] 2.5mg Take 1 [facility] 2.5 mg 4-17 tablet by ity of tablet 00:00: mouth in [place] the morning. Branch metoprolol Yes [id number] 25mg Take 1 U nivers tartrate 25 4-17 tablet by ity of mg tablet 00:00: mouth in [facility] 00 the morning Branch and 1 tablet in the evening. blood sugar 0 Yes [id number] Check U nivers diagnostic 4-17 blood ity of strip 00:00: sugar 2 [place] 00 times a Medical day. Branch E11.9. Brand per insurance. Uses ACCU-CHEK machine Lancets Yes [id number] Check Unive rs Misc 4-17 blood ity of 00:00: sugar 2 [place] 00 times a Medical day. Branch E11.9. Brand per insurance. gabapentin 0 Yes [id number] 300mg Take 1 [facility] 300 mg 4-17 capsule by ity of capsule 00:00: mouth in [place] 00 the morning Branch and 1 capsule at noon and 1 capsule in the evening. amiodarone 2022-0 Yes [id number] 200mg Take 1 [facility] 200 mg 4-17 tablet by ity of tablet 00:00: mouth in [place] 00 the morning. Branch apixaban 5 0 Yes 5mg Take 1 Unive rs mg tablet 4-17 tablet by ity o f 00:00: mouth in [place] the morning Branch and 1 tablet in the evening. Indication s: ATRIAL FIBRILLATI ON atorvastati Yes [id number] 40mg Take 1 [facility] n 40 mg 4-17 tablet by ity of tablet 00:00: mouth at [place] [address] bedtime. Medical Branch SERTraline Yes [id number] 100mg Take 1 [facility] 100 mg 4-17 tablet by ity of tablet 00:00: mouth in [place] 00 the morning. Branch lisinopriL Yes [id number] 2.5mg Take 1 [facility] 2.5 mg 4-17 tablet by ity of tablet 00:00: mouth in [place] [address] the morning. Branch metoprolol Yes [id number] 25mg Take 1 U nivers tartrate 25 4-17 tablet by ity of mg tablet 00:00: mouth in [facility] 00 the morning Branch and 1 tablet in the evening. blood sugar Yes [id number] Check U nivers diagnostic 4-17 blood ity of strip 00:00: sugar 2 [place] times a Medical day. Branch E11.9. Brand per insurance. Uses ACCU-CHEK machine Lancets Yes [id number] Check Unive rs Misc 4-17 blood ity of 00:00: sugar 2 [place] times a Medical day. Branch E11.9. Brand per insurance. gabapentin Yes [id number] 300mg Take 1 [facility] 300 mg 4-17 capsule by ity of capsule 00:00: mouth in [place] the morning Branch and 1 capsule at noon and 1 capsule in the evening. amiodarone Yes [id number] 200mg Take 1 [facility] 200 mg 4-17 tablet by ity of tablet 00:00: mouth in [place] 00 the morning. Branch apixaban 5 Yes 5mg Take 1 Unive rs mg tablet 4-17 tablet by ity o f 00:00: mouth in [place] the morning Branch and 1 tablet in the evening. Indication s: ATRIAL FIBRILLATI ON atorvastati Yes [id number] 40mg Take 1 [facility] n 40 mg 4-17 tablet by ity of tablet 00:00: mouth at [place] [address] bedtime. Medical Branch SERTraline Yes [id number] 100mg Take 1 [facility] 100 mg 4-17 tablet by ity of tablet 00:00: mouth in [place] the morning. Branch lisinopriL Yes [id number] 2.5mg Take 1 [facility] 2.5 mg 4-17 tablet by ity of tablet 00:00: mouth in [place] the morning. Branch metoprolol Yes [id number] 25mg Take 1 U nivers tartrate 25 4-17 tablet by ity of mg tablet 00:00: mouth in [facility] 00 the morning Branch and 1 tablet in the evening. blood sugar Yes [id number] Check U nivers diagnostic 4-17 blood ity of strip 00:00: sugar 2 [place] 00 times a Medical day. Branch E11.9. Brand per insurance. Uses ACCU-CHEK machine Lancets Yes [id number] Check Unive rs Misc 4-17 blood ity of 00:00: sugar 2 [place] times a Medical day. Branch E11.9. Brand per insurance. gabapentin Yes [id number] 300mg Take 1 [facility] 300 mg 4-17 capsule by ity of capsule 00:00: mouth in [place] the morning Branch and 1 capsule at noon and 1 capsule in the evening. amiodarone Yes [id number] 200mg Take 1 [facility] 200 mg 4-17 tablet by ity of tablet 00:00: mouth in [place] the morning. Branch apixaban 5 Yes 5mg Take 1 Unive rs mg tablet 4-17 tablet by ity o f 00:00: mouth in [place] the morning Branch and 1 tablet in the evening. Indication s: ATRIAL FIBRILLATI ON atorvastati Yes [id number] 40mg Take 1 [facility] n 40 mg 4-17 tablet by ity of tablet 00:00: mouth at [place] 00 bedtime. Medical Branch SERTraline Yes [id number] 100mg Take 1 [facility] 100 mg 4-17 tablet by ity of tablet 00:00: mouth in [place] the morning. Branch lisinopriL Yes [id number] 2.5mg Take 1 [facility] 2.5 mg 4-17 tablet by ity of tablet 00:00: mouth in [place] the morning. Branch metoprolol 0 Yes [id number] 25mg Take 1 U nivers tartrate 25 4-17 tablet by ity of mg tablet 00:00: mouth in [facility] s the morning Branch and 1 tablet in the evening. blood sugar 2022-0 Yes [id number] Check U nivers diagnostic 4-17 blood ity of strip 00:00: sugar 2 [place] 00 times a Medical day. Branch E11.9. Brand per insurance. Uses ACCU-CHEK machine Lancets 0 Yes [id number] Check Unive rs Misc 4-17 blood ity of 00:00: sugar 2 [place] times a Medical day. Branch E11.9. Brand per insurance. gabapentin 0 Yes [id number] 300mg Take 1 [facility] 300 mg 4-17 capsule by ity of capsule 00:00: mouth in [place] the morning Branch and 1 capsule at noon and 1 capsule in the evening. amiodarone 0 Yes [id number] 200mg Take 1 [facility] 200 mg 4-17 tablet by ity of tablet 00:00: mouth in [place] the morning. Branch apixaban 5 0 Yes 5mg Take 1 Unive rs mg tablet 4-17 tablet by ity o f 00:00: mouth in [place] the morning Branch and 1 tablet in the evening. Indication s: ATRIAL FIBRILLATI ON atorvastati 0 Yes [id number] 40mg Take 1 [facility] n 40 mg 4-17 tablet by ity of tablet 00:00: mouth at [place] [address] bedtime. Medical Branch SERTraline 0 Yes [id number] 100mg Take 1 [facility] 100 mg 4-17 tablet by ity of tablet 00:00: mouth in [place] 00 the morning. Branch lisinopriL 0 Yes [id number] 2.5mg Take 1 [facility] 2.5 mg 4-17 tablet by ity of tablet 00:00: mouth in [place] 00 the morning. Branch metoprolol 2022-0 Yes [id number] 25mg Take 1 U nivers tartrate 25 4-17 tablet by ity of mg tablet 00:00: mouth in [facility] 00 the morning Branch and 1 tablet in the evening. blood sugar 2022-0 Yes [id number] Check U nivers diagnostic 4-17 blood ity of strip 00:00: sugar 2 [place] times a Medical day. Branch E11.9. Brand per insurance. Uses ACCU-CHEK machine Lancets Yes [id number] Check Unive rs Misc 4-17 blood ity of 00:00: sugar 2 [place] 00 times a Medical day. Branch E11.9. Brand per insurance. gabapentin Yes [id number] 300mg Take 1 [facility] 300 mg 4-17 capsule by ity of capsule 00:00: mouth in [place] 00 the Medical morning Branch and 1 capsule at noon and 1 capsule in the evening. amiodarone Yes [id number] 200mg Take 1 [facility] 200 mg 4-17 tablet by ity of tablet 00:00: mouth in [place] 00 the morning. Branch apixaban 5 Yes 5mg Take 1 Un[facility] rs mg tablet 4-17 tablet by ity o f 00:00: mouth in [place] the morning Branch and 1 tablet in the evening. Indication s: ATRIAL FIBRILLATI ON atorvastati Yes [id number] 40mg Take 1 [facility] n 40 mg 4-17 tablet by ity of tablet 00:00: mouth at [place] 00 bedtime. Medical Branch SERTraline Yes [id number] 100mg Take 1 [facility] 100 mg 4-17 tablet by ity of tablet 00:00: mouth in [place] the morning. Branch lisinopriL Yes [id number] 2.5mg Take 1 [facility] 2.5 mg 4-17 tablet by ity of tablet 00:00: mouth in [place] 00 the Medical morning. Branch metoprolol Yes [id number] 25mg Take 1 U nivers tartrate 25 4-17 tablet by ity of mg tablet 00:00: mouth in [facility] 00 the Medical morning Branch and 1 tablet in the evening. blood sugar Yes [id number] Check U nivers diagnostic 4-17 blood ity of strip 00:00: sugar 2 [place] 00 times a Medical day. Branch E11.9. Brand per insurance. Uses ACCU-CHEK machine Lancets 0 Yes [id number] Check Unive rs Misc 4-17 blood ity of 00:00: sugar 2 [place] 00 times a Medical day. Branch E11.9. Brand per insurance. gabapentin 2023-0 Yes [id number] 300mg Take 1 [facility] 300 mg 4-17 capsule by ity of capsule 00:00: mouth in [place] 00 the morning Branch and 1 capsule at noon and 1 capsule in the evening. amiodarone 2022-0 Yes [id number] 200mg Take 1 [facility] 200 mg 4-17 tablet by ity of tablet 00:00: mouth in [place] the morning. Branch apixaban 5 2022-0 Yes 5mg Take 1 Unive rs mg tablet 4-17 tablet by ity o f 00:00: mouth in [place] the morning Branch and 1 tablet in the evening. Indication s: ATRIAL FIBRILLATI ON atorvastati 2022- Yes [id number] 40mg Take 1 [facility] n 40 mg 4-17 tablet by ity of tablet 00:00: mouth at [place] [address] bedtime. Medical Branch SERTraline 0 Yes [id number] 100mg Take 1 [facility] 100 mg 4-17 tablet by ity of tablet 00:00: mouth in [place] the morning. Branch lisinopriL Yes [id number] 2.5mg Take 1 [facility] 2.5 mg 4-17 tablet by ity of tablet 00:00: mouth in [place] [address] the morning. Branch metoprolol Yes [id number] 25mg Take 1 U nivers tartrate 25 4-17 tablet by ity of mg tablet 00:00: mouth in [facility] 00 the morning Branch and 1 tablet in the evening. blood sugar 0 Yes [id number] Check U nivers diagnostic 4-17 blood ity of strip 00:00: sugar 2 [place] 00 times a Medical day. Branch E11.9. Brand per insurance. Uses ACCU-CHEK machine Lancets 0 Yes [id number] Check Unive rs Misc 4-17 blood ity of 00:00: sugar 2 [place] [address] times a Medical day. Branch E11.9. Brand per insurance. gabapentin 2022-0 Yes [id number] 300mg Take 1 [facility] 300 mg 4-17 capsule by ity of capsule 00:00: mouth in [place] [address] the morning Branch and 1 capsule at noon and 1 capsule in the evening. amiodarone 2022-0 Yes [id number] 200mg Take 1 [facility] 200 mg 4-17 tablet by ity of tablet 00:00: mouth in [place] the morning. Branch apixaban 5 0 Yes 5mg Take 1 Unive rs mg tablet 4-17 tablet by ity o f 00:00: mouth in [place] the morning Branch and 1 tablet in the evening. Indication s: ATRIAL FIBRILLATI ON atorvastati Yes [id number] 40mg Take 1 [facility] n 40 mg 4-17 tablet by ity of tablet 00:00: mouth at [place] [address] bedtime. Medical Branch SERTraline Yes [id number] 100mg Take 1 [facility] 100 mg 4-17 tablet by ity of tablet 00:00: mouth in [place] the morning. Branch lisinopriL Yes [id number] 2.5mg Take 1 [facility] 2.5 mg 4-17 tablet by ity of tablet 00:00: mouth in [place] the morning. Branch metoprolol Yes [id number] 25mg Take 1 U nivers tartrate 25 4-17 tablet by ity of mg tablet 00:00: mouth in [facility] the morning Branch and 1 tablet in the evening. blood sugar Yes [id number] Check U nivers diagnostic 4-17 blood ity of strip 00:00: sugar 2 [place] times a Medical day. Branch E11.9. Brand per insurance. Uses ACCU-CHEK machine Lancets Yes [id number] Check Unive rs Misc 4-17 blood ity of 00:00: sugar 2 [place] times a Medical day. Branch E11.9. Brand per insurance. gabapentin Yes [id number] 300mg Take 1 Univers 300 mg 4-17 capsule by ity of capsule 00:00: mouth in [place] the morning Branch and 1 capsule at noon and 1 capsule in the evening. amiodarone Yes [id number] 200mg Take 1 [facility] 200 mg 4-17 tablet by ity of tablet 00:00: mouth in [place] the morning. Branch apixaban 5 0 Yes 5mg Take 1 Unive rs mg tablet 4-17 tablet by ity o f 00:00: mouth in [place] the morning Branch and 1 tablet in the evening. Indication s: ATRIAL FIBRILLATI ON atorvastati Yes [id number] 40mg Take 1 Univers n 40 mg 4-17 tablet by ity of tablet 00:00: mouth at [place] [address] bedtime. Medical Branch SERTraline Yes [id number] 100mg Take 1 [facility] 100 mg 4-17 tablet by ity of tablet 00:00: mouth in [place] the morning. Branch lisinopriL Yes [id number] 2.5mg Take 1 Univers 2.5 mg 4-17 tablet by ity of tablet 00:00: mouth in [place] the morning. Branch metoprolol Yes [id number] 25mg Take 1 U nivers tartrate 25 4-17 tablet by ity of mg tablet 00:00: mouth in [facility] the morning Branch and 1 tablet in the evening. blood sugar Yes [id number] Check U nivers diagnostic 4-17 blood ity of strip 00:00: sugar 2 [place] times a Medical day. Branch E11.9. Brand per insurance. Uses ACCU-CHEK machine Lancets Yes [id number] Check Unive rs Misc 4-17 blood ity of 00:00: sugar 2 [place] times a Medical day. Branch E11.9. Brand per insurance. gabapentin Yes [id number] 300mg Take 1 [facility] 300 mg 4-17 capsule by ity of capsule 00:00: mouth in [place] the morning Branch and 1 capsule at noon and 1 capsule in the evening. amiodarone Yes [id number] 200mg Take 1 [facility] 200 mg 4-17 tablet by ity of tablet 00:00: mouth in [place] the morning. Branch apixaban 5 Yes 5mg Take 1 Unive rs mg tablet 4-17 tablet by ity o f 00:00: mouth in [place] the morning Branch and 1 tablet in the evening. Indication s: ATRIAL FIBRILLATI ON atorvastati Yes [id number] 40mg Take 1 [facility] n 40 mg 4-17 tablet by ity of tablet 00:00: mouth at [place] [address] bedtime. Medical Branch SERTraline Yes [id number] 100mg Take 1 [facility] 100 mg 4-17 tablet by ity of tablet 00:00: mouth in [place] the morning. Branch lisinopriL Yes [id number] 2.5mg Take 1 [facility] 2.5 mg 4-17 tablet by ity of tablet 00:00: mouth in [place] 00 the Medical morning. Branch metoprolol 0 Yes [id number] 25mg Take 1 U nivers tartrate 25 4-17 tablet by ity of mg tablet 00:00: [facility] Branch and 1 tablet in the evening. blood sugar 0 Yes [id number] Check U nivers diagnostic 4-17 blood ity of strip 00:00: sugar 2 [place] 00 times a Medical day. Branch E11.9. Brand per insurance. Uses ACCU-CHEK machine Lancets Yes [id number] Check Unive rs Misc 4-17 blood ity of 00:00: sugar 2 [place] 00 times a Medical day. Branch E11.9. Brand per insurance. SERTraline Yes [id number] 100mg Take 1 Univers 100 mg 4-17 tablet by ity of tablet 00:00: mouth in [place] 00 the Medical morning. Branch SERTraline 2022- No [id number] 100mg Take 1 Univers 100 mg 4-17 05-19 tablet by ity of tablet 00:00: 00:00 mouth in [place] 00 :00 the Medical morning. Branch gabapentin 2022-2022- No [id number] 300mg Take 1 [facility] 300 mg 4-17 05-18 capsule by ity of capsule 00:00: 00:00 mouth in [place] 00 :00 the Medical morning Branch and 1 capsule at noon and 1 capsule in the evening. amiodarone 2022- No [id number] 200mg Take 1 [facility] 200 mg 4-17 [...] evening. Indication s: ATRIAL FIBRILLATI ON atorvastati 2022-2022- No [id number] 40mg Take 1 Univers n 40 mg 4-17 05-18 tablet by ity of tablet 00:00: 00:00 mouth at [place] 00 :00 bedtime. Medical Branch lisinopriL 2022- No [id number] 2.5mg Take 1 Univers 2.5 mg 08-05 05-18 tablet by ity of tablet 00:00: 00:00 mouth in [place] 00 :00 the Medical morning. Branch metoprolol 3- No [id number] 25mg Take 1 Univers tartrate 25 -17 05-18 tablet by it y of mg tablet 00:00: 00:00 mouth in [place] 00 :00 the Medical morning Branch and 1 tablet in the evening. blood sugar 2022- No [id number] Check Univers diagnostic 4-17 05-18 blood ity of strip 00:00: 00:00 sugar 2 [place] 00 :00 times a Medical day. Branch E11.9. Brand per insurance. Uses ACCU-CHEK machine Lancets 2022- No [id number] Check Univ ers Misc 4-17 05-18 blood ity of 00:00: 00:00 sugar 2 [place] 00 :00 times a Medical day. Branch E11.9. Brand per insurance. blood sugar 2022- No [id number] Check Univers diagnostic 4-17 04-17 blood ity of strip 00:00: 00:00 sugar 2 [place] 00 :00 times a Medical day. Branch E11.9. Brand per insurance. Uses ACCU-CHEK machine blood sugar 2022- No [id number] Check Univers diagnostic 4-17 04-17 blood ity of strip 00:00: 00:00 sugar 2 [place] 00 :00 times a Medical day. Branch E11.9. Brand per insurance. Uses ACCU-CHEK machine blood sugar 2022- No [id number] Check Univers diagnostic 4-17 04-17 blood ity of strip 00:00: 00:00 sugar 2 [place] 00 :00 times a Medical day. Branch E11.9. Brand per insurance. Uses ACCU-CHEK machine amiodarone 2022-0 Yes 200mg Take 1 Univ ers 200 mg 4-12 tablet by ity of tablet 00:00: mouth in [place] 00 the Medical morning. Branch SERTraline 2022-0 Yes 25mg Take 1 Unive rs 25 mg 4-12 tablet by ity of tablet 00:00: mouth in [place] 00 the Medical morning. Branch amiodarone 2023-0 [...] y of e 0.025% 01:00: dose on [place] ([place]') 00 Mon Medical solution 07/29/[address] [facility] h 2000, Until Discontinu ed, Routine iron No 500mg 500 mg, IV Unive rs sucrose 07-29 Infusion, ity of (VENOFER) 19:15: 23:11 ONCE, [place] 500 mg in 00 :00 Administer Medi dilshad NaCl 0.9% over 2.5 Branch (NS) 250 mL Hours, On infusion 07/29/22 at 1415, For 1 dose iopamidol No [id number] 80mL 80 mL, Univers (ISOVUE 07-29 Intravenou ity o f 370-500 mL) 16:26: 16:26 s, ONCE, 1 [place] injection 00 :00 dose, On Medica l 80 mL Mon Branch 07/29/22 at 1145, Routine lidocaine No 20mL 20 mL, Unive rs 1% 07-29 Infiltrati ity of (XYLOCAINE) 16:00: 15:27 on, ONCE, [place] 10 mg/mL (1 00 :00 1 dose, On Me dical %) Mon Branch injection 07/29/22 at 20 mL 1100, STAT lactated No 1000mL at 100 Univ ers ringers IV 07-29- mL/hr, ity of infusion 15:30: 15:36 1,000 mL, [place] 1,000 mL 00 :20 Intravenou Medic al s, ONCE, 1 Branch dose, On 07/29/22 at 1030, Routine acetaminoph Yes 650mg 650 mg, Un anil en 4-10 Oral, ity of (TYLENOL) 01:52: Q6HPRN, [place] tablet 650 10 Starting Medic al mg on Sun Branch 07/28/22 at 2051, Until Discontinu ed, Routine, Pain (scale 1-3), Temp > 38 C sodium No 50meq 50 mEq, Univer s bicarbonate 07-28 04-09 Slow IV ity of 1 mEq/mL 20:00: 19:38 Push, [place] (8.4 %) 00 :00 ONCE, 1 Medical injection dose, On Branch 50 mEq [place] 07/28/22 at 1500, Routine amiodarone Yes 200mg 200 mg, Uni vers (PACERONE) 07-28 Oral, ity of tablet 200 14:00: DAILY, [place] mg 00 First dose Medical on [facility] 07/28/22 at 0900, Until Discontinu ed, Routine SERTraline Yes 25mg 25 mg, Unive rs (ZOLOFT) 07-28 Oral, ity of tablet 25 14:00: DAILY, [place] mg 00 First dose Medical on [facility] 07/28/22 at 0900, Until Discontinu ed, Routine Sliding Yes Subcutaneo Univ ers Scale 07-28 us, TID ity of Insulin - 13:00: MEALS+HS, [place] Lispro 00 First dose Medical (HumaLOG) + on [facility] Fsbg 07/28/22 at Testing 0800, Until Discontinu ed, Routine levETIRAcet No 500mg 500 mg, U nivers am (KEPPRA) 07-28 Oral, BID, i ty of tablet 500 13:00: 12:48 First dose [place] mg 00 :43 on [facility] 07/28/22 at Branch 0800, Until Discontinu ed, Routine vancomycin 2022- No 15mg/kg 1,500 mg Univers (VANCOCIN) 07-28 (rounded ity of 1,500 mg in 11:00: 13:55 from 1,380 [place] NaCl 0.9% 00 :31 mg = 15 Medical (NS) 500 mL mg/kg ?92 Bra [facility] VIAL-MATE kg), IV IV Piggyback, piggyback Q24H ABX, 7 doses, First dose (after last modificati on) on [place] 07/28/22 at 0600, Last dose on 08/03/22 [...] :00 ONCE, 1 Medical dose, On Branch [place] 07/28/22 at 0530, Routine NaCl 0.9% 0 2022- No 500mL at 999 [facility] ers (NS) bolus 07-28- mL/hr, 500 it y of infusion 09:54: 11:57 mL, IV [place] 500 mL 00 :00 Piggyback, Medical ONCE, 1 Branch dose, On [place] 07/28/22 at 0500, STAT lactated 2022- No 1000mL at 999 Univ ers ringers IV 07-28- mL/hr, ity of infusion 08:30: 09:06 1,000 mL, [place] 1,000 mL 00 :00 Intravenou Medic al s, ONCE, 1 Branch dose, On [place] 07/28/22 at 0330, Routine HEPARIN 2022-2022- No 4000U 4,000 Univers SODIUM 07-28- Units, IV ity of (PORCINE) 07:45: 08:24 Push, [place] 1,000 00 :00 ONCE, 1 Medical UNIT/ML dose, On Branch BOLUS ACS [place] 07/28/22 ORDER SET at 0245, GELA dextrose 2022-0 Yes 250mL 250 mL, IV Un anil 10% (D10W) 07-28 Infusion, ity of bolus 07:32: PRN - SEE [place] infusion 32 INSTRUCTIO Medic al 250 mL NS, Branch Administer over 60 Minutes, Other, If blood glucose is < or = 70 mg/dL and patient is unable to swallow or has mental status changes, Starting on [place] 07/28/22 at 0232
If blood glucose is [...] KIT) 26 Starting Medical injection 1 on [place] Branch mg 07/28/22 at 0232, Until Discontinu ed, GELA, Blood Glucose < or = 70 mg/dL and patient is NPO, unable to swallow or has mental changes. heparin 2022-0 2022- No 0U/h 0-2,150 Univer s 25,000 4-09 04-10 Units/hr ity of Units/250 07:30: 14:43 [...] Rang e, Dosing and Testing: &nbs p;FOR [facility], [facility], AND [facility]AMP[facility]ES ONLY &nbs p; - aPTT < [...] Starting [place] mL vial) 11 :03 on [place] Medical for 07/28/22 at Branch Rebolusing 0230, Until 07/29/22 at 0943, Routine
Dosing based on aPPT testing parameters (refer to continuous heparin drip order).
ceFEPIme 2022- No 1000mg 1,000 mg, U nivers (MAXIPIME) 07-28 IV ity of 1,000 mg in 07:30: 09:39 Piggyback, [place] NaCl 0.9% 00 :00 ONCE, 1 Medical (NS) 100 mL dose, On Bran ch MINI-BAG [place] 07/28/22 at 0230, Administer over 30 Minutes, [...] 1000mg 1,000 mg, Univers 1,000 mg in 401 IV ity of NaCl 0.9% 04:30: [place]back, [place] (NS) 250 mL 00 Q24H ABX, Med ical VIAL-black puller dose Bran ch IV on Fri piggyback [...] of Therapy: Other (see Comments) cephALEXin Yes [id number] 500mg Take 1 Univers (KEFLEX) 07-19 capsule by ity o f 500 mg 00:00: mouth 4 [place] capsule 00 (four) Medical times Branch daily. cephALEXin 2022- No [id number] 500mg Take 1 Univers (KEFLEX) 07-19-11 capsule [...] Indication s: acute pain sulfamethox 2022- No [id number] 2{tbl} Take 2 Univers azole-trime 3-31 04-08 [...] 2 l (two) times a day. docusate 202-0 Yes 100mg Q.5D Take 1 Method i [...] OF JUICE OR WATER HYDROcodone 2022-0 Yes [id number] 1{tbl} Q6H Take 1 M ethodi -acetaminop [...] OF JUICE OR WATER HYDROcodone 2022-0 Yes [id number] 1{tbl} Q6H Take 1 M ethodi -acetaminop [...] OF JUICE OR WATER HYDROcodone 2022-0 Yes [id number] 1{tbl} Q6H Take 1 M ethodi -acetaminop [...] OF JUICE OR WATER HYDROcodone 2022-0 Yes [id number] 1{tbl} Q6H Take 1 M ethodi -acetaminop [...] OF JUICE OR WATER HYDROcodone 2022-0 Yes [id number] 1{tbl} Q6H Take 1 M ethodi -acetaminop [...] OF JUICE OR WATER HYDROcodone 3-0 Yes [id number] 1{tbl} Q6H Take 1 M ethodi -acetaminop [...] OF JUICE OR WATER HYDROcodone 2022-0 Yes [id number] 1{tbl} Q6H Take 1 M ethodi -acetaminop [...] OF JUICE OR WATER HYDROcodone 2022-0 Yes [id number] 1{tbl} Q6H Take 1 M ethodi -acetaminop [...] OF JUICE OR WATER HYDROcodone 2022-0 Yes [id number] 1{tbl} Q6H Take 1 M ethodi -acetaminop [...] OF JUICE OR WATER HYDROcodone 2022-0 Yes [id number] 1{tbl} Q6H Take 1 M ethodi -acetaminop [...] OF JUICE OR WATER HYDROcodone 2022-0 Yes [id number] 1{tbl} Q6H Take 1 M ethodi -acetaminop [...] OF JUICE OR WATER HYDROcodone 3-0 Yes [id number] 1{tbl} Q6H Take 1 M ethodi -acetaminop [...] OF JUICE OR WATER HYDROcodone 3-0 Yes [id number] 1{tbl} Q6H Take 1 M ethodi -acetaminop [...] OF JUICE OR WATER HYDROcodone 2022-0 Yes [id number] 1{tbl} Q6H Take 1 M ethodi -acetaminop [...] packet OF JUICE OR WATER HYDROcodone Yes [id number] 1{tbl} Q6H Take 1 M ethodi -acetaminop [...] (twelve) hours for 6 days. meropenem 1 2022-3- No 1g Q12H Infuse 1 g Methodi [...] hours for 6 days. levoFLOXaci 2022- No [id number] 500mg QD Take 1 Methodi n 06-[id number] (Levaquin) 00:00: 00:00 (500 mg [facility] [place] 500 MG 00 :00 total) by l tablet mouth daily. levoFLOXaci 2022- No [id number] 500mg QD Take 1 Methodi n 06-[id number] (Levaquin) 00:00: 00:00 (500 mg [facility] [place] 500 MG 00 :00 total) by l tablet mouth daily. levoFLOXaci 2022- No [id number] 500mg QD Take 1 Methodi n 06-[id number] (Levaquin) 00:00: 00:00 (500 mg [facility] [place] 500 MG 00 :00 total) by l tablet mouth daily. levoFLOXaci 2022- No [id number] 500mg QD Take 1 Methodi n 06-[id number] (Levaquin) 00:00: 00:00 (500 mg [facility] [place] 500 MG 00 :00 total) by l tablet mouth daily. levoFLOXaci 2022- No [id number] 500mg QD Take 1 Methodi n 06-[id number] (Levaquin) 00:00: 00:00 (500 mg [facility] [place] 500 MG 00 :00 total) by l tablet mouth daily. levoFLOXaci 2022- No [id number] 500mg QD Take 1 Methodi n 06-[id number] (Levaquin) 00:00: 00:00 (500 mg [facility] [place] 500 MG 00 :00 total) by l tablet mouth daily. levoFLOXaci 2022- No [id number] 500mg QD Take 1 Methodi n 06-[id number] (Levaquin) 00:00: 00:00 (500 mg [facility] [place] 500 MG 00 :00 total) by l tablet mouth daily. levoFLOXaci 2022- No [id number] 500mg QD Take 1 Methodi n 06-[id number] (Levaquin) 00:00: 00:00 (500 mg [facility] [place] 500 MG 00 :00 total) by l tablet mouth daily. levoFLOXaci 2022- No [id number] 500mg QD Take 1 Methodi n 06-[id number] (Levaquin) 00:00: 00:00 (500 mg [facility] [place] [place] 500 MG 00 :00 total) by l tablet mouth daily. levoFLOXaci 2022- No [id number] 500mg QD Take 1 Methodi n 06-[id number] (Levaquin) 00:00: 00:00 (500 mg [facility] [place] 500 MG 00 :00 total) by l tablet mouth daily. levoFLOXaci 2022- No [id number] 500mg QD Take 1 Methodi n 06-[id number] (Levaquin) 00:00: 00:00 (500 mg [facility] [place] 500 MG 00 :00 total) by l tablet mouth daily. levoFLOXaci 3-0 3- No [id number] 500mg QD Take 1 Methodi n 06-[id number] (Levaquin) 00:00: 00:00 (500 mg [facility] 500 MG 00 :00 total) by l tablet mouth daily. levoFLOXaci 3-0 3- No [id number] 500mg QD Take 1 Methodi n 06-[id number] (Levaquin) 00:00: 00:00 (500 mg [facility] [place] 500 MG 00 :00 total) by l tablet mouth daily. levoFLOXaci 3-0 3- No [id number] 500mg QD Take 1 Methodi n 06-[id number] (Levaquin) 00:00: 00:00 (500 mg [facility] 500 MG 00 :00 total) by l tablet mouth daily. levoFLOXaci 2022-0 3- No [id number] 500mg QD Take 1 Methodi n 06-[id number] (Levaquin) 00:00: 00:00 (500 mg [...] 00 total) by l mouth daily. cephalexin 3-0 2023- No Method i (KEFLEX) 2-15 03-15 [...] cephalexin 2023-0 2023- No Method i (KEFLEX) 06-05 st 500 MG 00:00: 00:00 Hospita capsule 00 :00 l cephalexin 2023-0 3- No Method i (KEFLEX) 06-0515 st 500 [...] 2{tbl} Take 2 M ethodi docusate 1-24 -[address] sodium 00:00: 00:00 mouth. Hospita (SENOKOT-S) 00 :00 l 8.6-50 mg per tablet sennosides- 3-0 2023- No 2{tbl} Take 2 M ethodi docusate 1-24 -[address] sodium 00:00: 00:00 [...] :00 l 8.6-50 mg per tablet insulin 2022-2022- No 14U QD Inject Methodi [...] cough for up to 30 days. docusate 20222022- No 100mg Q.5D Take 1 Metho di [...] for 10 days. HYDROcodone 2023-0 2022- [place] [id number] 1{tbl} Q6H Take 1 Methodi -acetaminop 05-14- tablet by [facility] ([place]) 00:00: 05:59 mouth [facility] 10-325 mg [...] for 10 days. HYDROcodone 2023-0 2022- No [id number] 1{tbl} Q6H Take 1 Methodi -acetaminop 05-14- tablet by [facility] [employer] [facility]) 00:00: 05:59 mouth [facility] 10-325 mg [...] for 10 days. HYDROcodone 2023-0 2022- [place] [id number] 1{tbl} Q6H Take 1 Methodi -acetaminop 05-14- tablet by [facility] ([place]) 00:00: 05:59 mouth [facility] 10-325 mg [...] for 10 days. HYDROcodone 2022-0 2022- No [id number] 1{tbl} Q6H Take 1 Methodi -acetaminop 05-14- tablet [facility] ([place]) 00:00: 05:59 mouth [facility] 10-325 mg [...] for 10 days. HYDROcodone 2022-0 2022- No [id number] 1{tbl} Q6H Take 1 Methodi -acetaminop 05-14- tablet by [employer]) 00:00: 05:59 mouth [facility] 10-325 mg [...] for 10 days. HYDROcodone 2022-0 2022- No [id number] 1{tbl} Q6H Take 1 Methodi -acetaminop 05-[address] [employer]) 00:00: 05:59 mouth [facility] 10-325 mg [...] for 10 days. HYDROcodone 2022-0 2022- [place] [id number] 1{tbl} Q6H Take 1 Methodi -acetaminop 05-14- tablet [facility] ([place]) 00:00: 05:59 mouth [facility] 10-325 mg [...] for 10 days. HYDROcodone 2022-0 2022- No [id number] 1{tbl} Q6H Take 1 Methodi -acetaminop 05-14 tablet by [employer]) 00:00: 05:59 mouth [facility] 10-325 mg [...] for 10 days. HYDROcodone 2022-0 2022- No [id number] 1{tbl} Q6H Take 1 Methodi -acetaminop 05-14- tablet [facility] ([place]) 00:00: 05:59 mouth [facility] 10-325 mg [...] for 10 days. HYDROcodone 3-0 2022- No [id number] 1{tbl} Q6H Take 1 Methodi -acetaminop 05-14-[address] [facility] ([place]) 00:00: 05:59 mouth [facility] 10-325 mg [...] for 10 days. HYDROcodone 2023-0 2023- [place] [id number] 1{tbl} Q6H Take 1 Methodi -acetaminop 05-14- tablet by [employer] ([place]) 00:00: 05:59 mouth [facility] 10-325 mg [...] for 10 days. HYDROcodone 2023-0 2023- No [id number] 1{tbl} Q6H Take 1 Methodi -acetaminop 05-14- tablet by [employer]) 00:00: 05:59 mouth [facility] 10-325 mg [...] for 10 days. HYDROcodone 2023-0 2023- [place] [id number] 1{tbl} Q6H Take 1 Methodi -acetaminop 05-14-04 tablet by [facility] ([place]) 00:00: 05:59 mouth [facility] 10-325 mg [...] hours for 10 days. [place] 2022-[place]- [place] [id number] 1{tbl} Q6H Take 1 Methodi -acetaminop 05-[address] [facility] ([place]) 00:00: 05:59 mouth [facility] 10-325 mg [...] hours for 10 days. HYDROcodone 2022-20[place]- [place] [id number] 1{tbl} Q6H Take 1 Methodi -acetaminop 05-[address] [facility] ([place]) 00:00: 05:59 mouth [facility] 10-325 mg 00 :00 every 6 l per tablet (six) hours as needed for moderate pain or severe pain for up to 7 days .acute pain. Max Daily Amount: 4 tablets apixaban 2021-04- No 5mg Q.5D Take 1 Method i (ELIQUIS) 5 2-- tablet (5 st mg tablet 00:00: 05:59 mg total) [facility] 00 :00 by mouth 2 l (two) times a day for 30 days. atorvastati 2021-04- No 40mg QD Take 1 Met hodi n (LIPITOR) 2-30 - tablet (40 s t 40 mg [...] for 30 days. insulin 2021-04- No 0U [id number] Inject M ethodi lispro 05-25 [id number] 0-[address] (ADMELOG) 00:00: 05:59 3D [...] for 30 days. insulin 2021-04- No 0U [id number] Inject M ethodi lispro 05-25 [id number] 0-[address] (ADMELOG) 00:00: 05:59 3D [...] for 30 days. insulin 2021-04- No 0U [id number] Inject M ethodi lispro 05-25 [id number] 0-[address] (ADMELOG) 00:00: 05:59 3D [...] for 30 days. insulin 2021-04- No 0U [id number] Inject M ethodi lispro 05-25 [id number] 0-[address] (ADMELOG) 00:00: 05:59 3D [...] for 30 days. insulin 2021-04- No 0U [id number] Inject M ethodi lispro 05-25 [id number] 0-[address] (ADMELOG) 00:00: 05:59 3D [...] for 30 days. insulin 2021-04- No 0U [id number] Inject M ethodi lispro 05-25 [id number] 0-[address] (ADMELOG) 00:00: 05:59 3D [...] for 30 days. insulin 2021-04- No 0U [id number] Inject M ethodi lispro 05-25 [id number] 0-[address] (ADMELOG) 00:00: 05:59 3D [...] for 30 days. insulin 2021-04- No 0U [id number] Inject M ethodi lispro 05-25 [id number] 0-[address] (ADMELOG) 00:00: 05:59 3D [...] for 30 days. insulin 2021-04- No 0U [id number] Inject M ethodi lispro 05-25 [id number] 0-[address] (ADMELOG) 00:00: 05:59 3D [...] for 30 days. insulin 2021-04- No 0U [id number] Inject M ethodi lispro 05-25 [id number] 0-[address] (ADMELOG) 00:00: 05:59 3D [...] for 30 days. insulin 2021-04- No 0U [id number] Inject M ethodi lispro 05-25 [id number] 0-[address] (ADMELOG) 00:00: 05:59 3D [...] for 30 days. insulin 2021-04- No 0U [id number] Inject M ethodi lispro 05-25 [id number] 0-[address] (ADMELOG) 00:00: 05:59 3D [...] for 30 days. insulin 2021-04- No 0U [id number] Inject M ethodi lispro 05-25 [id number] 0-[address] (ADMELOG) 00:00: 05:59 3D [...] for 30 days. insulin 2021-04- No 0U [id number] Inject M ethodi lispro 05-25 [id number] 0-[address] (ADMELOG) 00:00: 05:59 3D under the Ho sp[facility] 100 unit/mL 00 :00 skin 3 l injection (three) times a day before meals for 30 days. amIODarone 2021-04- No 200mg Q.5D Take 1 Met hodi (PACERONE) 05-[address] 200 MG 00:00: 05:59 (200 mg Hospita tablet 00 :00 total) by l mouth every 12 (twelve) hours for 30 days. clopidogreL 2021-04 No 75mg [...] for 30 days. insulin 2021-04- No 0U [id number] Inject M ethodi lispro 05-25 [id number] 0-[address] (ADMELOG) 00:00: 05:59 3D [...] by mouth l daily for 30 days. insulin 2021-04- No 20U [...] (two) times a day for 30 days. metoprolol 2021-04- No 12.5mg Q.5D Take [...] daily 100 unit/mL for 30 injection days. acyclovir 2021-04 No 400mg Q.5D Take [...] Q.5D Take 1 Method i (ELIQUIS) 5 tablet (5 st mg tablet 00:00: 05:59 [...] times a day for 30 days. apixaban 2021-04 No 5mg Q.5D Take 1 Method i (ELIQUIS) 5 30 12-30 tablet (5 st mg tablet 00:00: [...] 30 injection days. insulin 2021-04 No 0U [id number] Inject M ethodi lispro 05-14- [id number] 0-[address] (ADMELOG) 00:00: 00:00 3D [...] 30 injection days. insulin 2021-04- No 0U [id number] Inject M ethodi lispro 05-14- [id number] 0-[address] (ADMELOG) 00:00: 00:00 3D [...] 30 injection days. insulin 2021-04- No 0U [id number] Inject M ethodi lispro 05-14 [id number] 0-[address] (ADMELOG) 00:00: 00:00 3D [...] 30 injection days. insulin 2021-04- No 0U [id number] Inject M ethodi lispro 05-14 [id number] 0-[address] (ADMELOG) 00:00: 00:00 3D [...] 30 injection days. insulin 2021-04- No 0U [id number] Inject M ethodi lispro 05-14 [id number] 0-[address] (ADMELOG) 00:00: 00:00 3D [...] 30 injection days. insulin 2021-04 No 0U [id number] Inject M ethodi lispro 05-14- [id number] 0-[address] (ADMELOG) 00:00: 00:00 3D under the [facility] sp[facility] 100 unit/mL 00 :00 skin 3 l injection (three) times a day before meals for 30 days. gabapentin 2021-04 300mg QD Take 1 Met hodi (NEURONTIN) 05-14-[address] 300 mg 00:00: 00:00 (300 mg Hospita capsule 00 :00 total) by l mouth nightly for 30 days. aspirin 2021-04 81mg QD Take 1 Methodi (ECOTRIN) 05-14-30 [...] 30 injection days. insulin 2021-04- No 0U [id number] Inject M ethodi lispro 05-14 [id number] 0-[address] (ADMELOG) 00:00: 00:00 3D [...] 30 injection days. insulin 2021-04- No 0U [id number] Inject M ethodi lispro 05-14 [id number] 0-[address] (ADMELOG) 00:00: 00:00 3D [...] 30 injection days. insulin 2021-04- No 0U [id number] Inject M ethodi lispro 05-14 [id number] 0-[address] (ADMELOG) 00:00: 00:00 3D [...] 30 injection days. insulin 2021-04 No 0U [id number] Inject M ethodi lispro 05-14- [id number] 0-[address] (ADMELOG) 00:00: 00:00 3D [...] 30 injection days. insulin 2021-04- No 0U [id number] Inject M ethodi lispro 05-14 [id number] 0-[address] (ADMELOG) 00:00: 00:00 3D [...] 30 injection days. insulin 2021-04- No 0U [id number] Inject M ethodi lispro 05-14 [id number] 0-[address] (ADMELOG) 00:00: 00:00 3D [...] 30 injection days. insulin 2021-04- No 0U [id number] Inject M ethodi lispro 05-14 [id number] 0-[address] (ADMELOG) 00:00: 00:00 3D [...] 30 injection days. insulin 2021-04- No 0U [id number] Inject M ethodi lispro 05-14 [id number] 0-[address] (ADMELOG) 00:00: 00:00 3D [...] 30 injection days. insulin 2021-04 No 0U [id number] Inject M ethodi lispro 05-14 [id number] 0-[address] (ADMELOG) 00:00: 00:00 3D [...] Q.5D Take 1 Met [facility] (VIBRAMYCIN 1-24 03-[address] ) 50 MG 00:00: [...] Q.5D Take 1 [facility] (VIBRAMYCIN -24 -[address] ) 50 MG 00:00: 05:59 [...] 90 days.Stren gth: 1,000 mg nicotine 2022-0 202- No 1{patch QD Place 1 Me [...] a capsule day for 10 days. traMADoL [id number] 50mg Q6H Take 1 Metho di (ULTRAM) 50 11-08- tablet (50 s t mg tablet 00:00: 04:59 mg total) Ho spita 00 :00 by mouth l every 6 (six) hours as needed for moderate pain for up to 7 days .acute pain. traMADoL 07170 50mg Q6H Take 1 Metho di (ULTRAM) 50 11-08- tablet (50 s t mg tablet 00:00: 04:59 mg total) [facility] 00 :00 by mouth l every 6 (six) hours as needed for moderate pain for up to 7 days .[place] [id number] 50mg Q6H Take 1 Meth[facility] di (ULTRAM) 50 11-08- tablet (50 s t mg tablet 00:00: 04:59 mg total) [facility] 00 :00 by mouth l every 6 (six) hours as needed for moderate pain for up to 7 [place] [id number] 50mg Q6H Take 1 Meth[facility] di (ULTRAM) 50 7-21 07-29 tablet (50 s t mg tablet 00:00: 04:59 mg total) [facility] 00 :00 by mouth l every 6 (six) hours as needed for moderate pain for up to 7 [place] [id number] 50mg Q6H Take 1 Meth[facility] di (ULTRAM) 50 7-08 11-29 tablet (50 s t mg tablet 00:00: 04:59 mg total) [facility] 00 :00 by mouth l every 6 (six) hours as needed for moderate pain for up to 7 days .[place] [address] 50mg Q6H Take 1 Metho di (ULTRAM) 50 7-08 11-29 tablet (50 s t mg tablet 00:00: 04:59 mg total) [facility] 00 :00 by mouth l every 6 (six) hours as needed for moderate pain for up to 7 days .[place] [id number] 50mg Q6H Take 1 Meth[facility] di (ULTRAM) 50 7-08 11-29 tablet (50 s t mg tablet 00:00: 04:59 mg total) [facility] 00 :00 by mouth l every 6 (six) hours as needed for moderate pain for up to 7 [place] [id number] 50mg Q6H Take 1 Metho di (ULTRAM) 50 7-21 07-29 tablet (50 s t mg tablet 00:00: 04:59 mg total) [facility] spita 00 :00 by mouth l every 6 (six) hours as needed for moderate pain for up to 7 [place] [id number] 50mg Q6H Take 1 Metho di (ULTRAM) [...] EXPIRES 28 DAYS AFTER FIRST USE. Lantus 2-0 Yes INJECT 15 [facility] U-100 4-[address] Insulin 100 00:00: [facility]O [facility] unit/mL 00 USLY AT l injection BEDTIME. (vial) VIAL EXPIRES 28 DAYS AFTER FIRST USE. Ultracare 2-0 Yes Q.25D 4 (four) Met hodi Insulin [...] 00 :00 l x 5/16 syringe Ultracare 2021-3- No Q.25D 4 (four) Me thodi Insulin [...] 2021- No INJECT 5 Metho di U-100 08-07 11-[address] Insulin 100 00:00: 00:00 SUBCUTANEO [facility]ospita unit/mL 00 :00 USLY l subcutaneou BEFORE s vial MEALS. VIAL EXPIRES 28 DAYS AFTER FIRST USE. Lantus 2021- No INJECT 15 [facility] di U-100 08-07 11-[address] Insulin 100 00:00: 00:00 [...] days Quantity: 10 {[place] r}Refills: 0Ordered: 2Willis, 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 [facility] t: 2 True Metrix 0 No 1{Each} True Please 2 .16.84 Blood - Metrix substitut 0.1.113 Glucose 00:00: Blood e prn. 883.4.2 Test In 00 Glucose Vitro Strip Test In Vitro Strip; 1 (one) Each bid for 0 days Quantity: 60 {Each}Refi lls: 5Ordered: 2Willis, [facility] t: 2Comments: Please substitute prn. atorvastati Yes [...] Dru (GLUCOPHAGE 0-15 05-03 refill tablet by Health ) 500 mg 00:00: 23:59 mouth 2 tablet 00 :00 times daily (with meals) for 90 days. metFORMIN 2020-04- No Medication 500mg Q.5D Take 1 Dru (GLUCOPHAGE 0-15 05-03 refill tablet by [facility] ) 500 mg 00:00: 23:59 mouth 2 tablet 00 :00 times daily (with meals) for 90 days. cephalexin 2020- No 500mg [id number] Take 1 [facility] (KEFLEX) 01-02 [id number] capsule s t 500 MG 00:00: 04:59 3D (500 mg Hospita capsule 00 :00 total) by l mouth 3 (three) times a day for 7 days. cephalexin 2020- No 500mg Q.[id number] Take 1 [facility] (KEFLEX) 01-02 [id number] capsule s t 500 MG 00:00: 04:59 [...] Memoria 0-27 (Same As: l 20:33: Flexeril) [place] 00 Motrin 2015-04 No Notes: Memoria 0-27 (Same as: l 20:33: Motrin) [place] 00 "Do Not Crush" Give with food. 24 HR No Notes: [facility] Metformin -15 (Same as: l hydrochlori 14:00: Glucophage [place] de 500 MG 00 XR) "Do Extended Not Crush" Release Tablet Azithromyci No Notes: [place] betty n -15 Take 1 l 14:00: hour [place] 00 before or 2 hours after meals. (Same As: Zithromax) Prednisone No Notes: Memor ia 9-15 Take with l 14:00: food. [place] 00 24 HR Yes 1,000 mg = Memori a Metformin 15 2 tab, PO, l hydrochlori 00:46: BID, # 120 Gu[place] de 500 MG 10 tab, 0 Extended Refill(s), Release Pharmacy: Tablet [place] [id number] [facility] 120 ACTUAT Yes 2 puff, [place] ebtty Albuterol -15 INHALATION l 0.1 00:46: , QID, # 1 [place] MG/ACTUAT / 00 ea, 0 Ipratropium Refill(s), [place] [facility]: 0.02 [place] [id number] MG/ACTUAT [facility] Metered Dose Inhaler [Combivent 20/100] predniSONE Yes 20 mg = 1 Me moria 20 mg oral -15 tab, PO, l tablet 00:46: Daily, X 3 Keesha nn 00 day, # 3 tab, 0 Refill(s), Pharmacy: [place] [id number] [facility] Insulin No 60 units) [place] betty regular 01-02 WASTE: F/P l 21:18: - Black; E - Bitrockrsh Bin Stable for 28 days at room [...] l / 19:00: Duoneb) [place] Ipratropium 00 [place] 0.167 MG/ML Inhalant Solution Enoxaparin No Notes: Memor ia -14 (Same as: l 14:00: Lovenox) [place] 00 Ceftriaxone No Notes: [place] betty -14 (Same As: l 14:00: Rocephin). [place] 00 Use with 100 mL NS and infuse over 30 min MEDICATION WASTE Product Size: 1000 mg Product Wasted: ___ mg Sodium No 25 mL, Memoria Chloride 01-02 Route: IV, l 0.9% IV 13:53: Start [place] 00 date: 01/03/16 8:53:00 CDT, Duration: 30 day, Stop date: 02/02/16 8:52:00 CDT, PRN Line Flush BD Normal No Notes: Memori a Saline -14 (Same as: l Flush 13:53: BD [place] 00 Posiflush) BD Normal No Notes: Memori a Saline -14 (Same as: l Flush 13:52: BD [place] Posiflush) Albuterol No Notes: SEE Me moria 0.83 MG/ML 01-02 RT l Inhalant 13:40: DOCUMENTAT Her mckeon Solution 00 ION (Same as: Proventil) Azithromyci No Notes: [place] betty n -14 Take 1 l 13:40: hour [place] 00 before or 2 hours after meals. (Same As: Zithromax) methylPREDN No Notes: [place] betty ISolone -14 (Same l SODium 08:01: as:Solu-ME Keesha nn SUCCinate 00 DROL, A-Methapre d) Saline No Notes: Memoria Flush 0.9% 14 (Same as: l 08:01: BD [place] 00 [...] F/P l 13:02: - Black; E - [employer] Trash Bin Stable for 28 days at [...] 830 Route: IM, l 13:02: Drug form: PDR/INJ, PRN, Dosing Weight 78.7, kg, PRN Blood Glucose Results, Start date: 12/19/15 8:02:00 CDT, Duration: 30 day, Stop date: 01/18/16 8:01:00 CDT Ondansetron No Notes: [place] betty 8-30 (Same as: l 13:02: Zofran) MEDICATION WASTE Product Size: 4 mg Product Wasted: ___ mg Docusate No Notes: Memoria 12-18 (Same as: l 13:02: Colace) [place] 00 (Do Not Crush) Metformin No 500 mg, Memor ia 30 PO, BID, 0 l 12:56: Refill(s) Clindamycin No 900 mg, Mem oria 12-18 Route: l 11:10: IVPB, [place] 00 ONCE, Dosing Weight 78.7, kg, Priority: STAT, Start date: 12/19/15 6:10:00 CDT, Stop date: 12/19/15 6:10:00 CDT Acetaminoph No Notes: [place] betty en 325 MG / 12-18 (Same as: l Hydrocodone 06:19: [place] Keesha nn Bitartrate 00 325/5) Do 5 MG Oral not exceed Tablet 4gm/day of [[place] acetaminop 5/325] hen. Insulin No Notes: Memoria [...] times daily with breakfast and dinner. metFORMIN 2013-1 Yes 1000mg Take 1,[address] [facility] (GLUCOPHAGE [...] Immunization Name Immunization Name Pneumococcal 2022-04-19 Completed [facility] 20-valent Conjugate 00:00:00 [facility] Vaccine FLUCELVAX QUAD PF 2022-04-[address] 00:00:00 [facility] Pneumococcal 2022-04-19 Completed [facility] 20-valent Conjugate 00:00:00 [facility] Vaccine FLUCELVAX QUAD 2022-04-[address] 00:00:00 [facility] Pneumococcal 2022-04-19 Completed [facility] 20-valent Conjugate 00:00:00 [facility] Vaccine FLUCELVAX QUAD 2022-04-[address] 00:00:00 [facility] Pneumococcal 2022-04-19 Completed [facility] 20-valent Conjugate 00:00:00 [facility] Vaccine FLUCELVAX QUAD 2022-04-[address] 00:00:00 [facility] Pneumococcal 2022-04-19 Completed [facility] 20-valent Conjugate 00:00:00 [facility] Vaccine FLUCELVAX QUAD 2022-04-[address] 00:00:00 [facility] Pneumococcal 2022-04-19 Completed [facility] 20-valent Conjugate 00:00:00 [facility] Vaccine FLUCELVAX QUAD 2022-04-[address] 00:[facility]00 [facility] Pneumococcal 2022-04-19 Completed [facility] 20-valent Conjugate 00:00:00 [facility] Vaccine FLUCELVAX QUAD 2022-04-[address] 00:00:00 [facility] Pneumococcal 2022-04-19 Completed [facility] 20-valent Conjugate 00:00:00 [facility] Vaccine FLUCELVAX QUAD 2022-04-[address] 00:00:00 [facility] Pneumococcal 2022-04-19 Completed [facility] 20-valent Conjugate 00:00:00 [facility] Vaccine FLUCELVAX QUAD PF 2022-04-[address] 00:00:00 [facility] Pneumococcal 2022-04-19 Completed [facility] 20-valent Conjugate 00:00:00 [facility] Vaccine FLUCELVAX QUAD PF 2022-04-[address] 00:00:00 [facility] TDAP 2021-09-30 Completed [facility] 00:00:00 [facility] TDAP 2021-09-30 Completed [facility] 00:00:00 [facility] TDAP 2021-09-30 Completed [facility] 00:00:00 [facility] TDAP 2021-09-30 Completed [facility] 00:00:00 [facility] TDAP 2021-09-30 Completed [facility] 00:00:00 [facility] TDAP 2021-09-30 Completed [facility] 00:00:00 [facility] TDAP 2021-09-30 Completed [facility] 00:00:00 [facility] TDAP 2021-09-30 Completed [facility] 00:00:00 [facility] TDAP 2021-09-30 Completed [facility] 00:00:00 [facility] TDAP 2021-09-30 Completed [facility] 00:00:00 [facility] TDAP 2021-09-30 Completed [facility] 00:00:00 [facility] TDAP 2021-09-30 Completed [facility] 00:00:00 [facility] TDAP 2021-09-30 Completed [facility] 00:00:00 [facility] TDAP 2021-09-30 Completed [facility] 00:00:00 [facility] TDAP 2021-09-30 Completed [facility] 00:00:00 [facility] TDAP 2021-09-30 Completed [facility] 00:00:00 [facility] TDAP 2016-12-31 Completed [facility] 00:00:00 [facility] TDAP 2016-12-31 Completed [facility] 00:00:00 [facility] TDAP 2016-12-31 Completed [facility] 00:00:00 [facility] TDAP 2016-12-31 Completed [facility] 00:00:00 [facility] TDAP 2016-12-31 Completed [facility] 00:00:00 [facility] TDAP 2016-12-31 Completed [facility] 00:00:00 [facility] TDAP 2016-12-31 Completed [facility] 00:00:00 [facility] TDAP 2016-12-31 Completed [facility] 00:00:00 [facility] TDAP 2016-12-31 Completed [facility] 00:00:00 [facility] TDAP 2016-12-31 Completed [facility] 00:00:00 [facility] TDAP 2016-12-31 Completed [facility] 00:00:00 [facility] TDAP 2016-12-31 Completed [facility] 00:00:00 [facility] TDAP 2016-12-31 Completed [facility] 00:00:00 [facility] TDAP 2016-12-31 Completed [facility] 00:00:00 [facility] TDAP 2016-12-31 Completed [facility] 00:00:00 [facility] TDAP 2016-12-31 Completed [facility] 00:00:00 [facility] pneumococcal 2016-01-04 Completed [facility] 23-valent vaccine 01:30:00 influenza virus 2016-01-04 Completed [facility] [place] vaccine, 01:26:00 inactivated Pneumococcal Unknown Completed [facility] 20-valent Conjugate [facility] Vaccine FLUCELVAX QUAD PF Unknown Com[facility] Pneumococcal Unknown Completed [facility] 20-valent Conjugate [facility] Vaccine FLUCELVAX QUAD PF Unknown Completed [facility] Pneumococcal Unknown Completed [facility] 20-valent Conjugate Hospi amber Vaccine FLUCELVAX QUAD PF Unknown Com[facility] Pneumococcal Unknown Completed [facility] 20-valent Conjugate Hospi amber Vaccine FLUCELVAX QUAD PF Unknown Completed [facility] Pneumococcal Unknown Completed [facility] 20-valent Conjugate Hospi amber Vaccine FLUCELVAX QUAD PF Unknown Completed [facility] Vital Signs Vital Name Observation Time Observation Value Comments Source Systolic blood 2022-12-16 95 mm[Hg] [facility] pressure 18:13:00 [facility] Diastolic blood 2022-12-16 61 mm[Hg] [facility] f pressure 18:13:00 [facility] Heart rate 2022-12-16 61 /min [facility] 18:13:00 [facility] Body temperature 2022-12-16 36.33 Jaqueline [facility] 18:13:00 [facility] Respiratory rate 2022-12-16 20 /min [facility] 18:13:00 [facility] Body weight 2022-12-16 86.183 kg [facility] 18:13:00 [facility] BMI 2022-12-16 57.98 kg/m2 [facility] 18:13:00 [facility] Oxygen saturation 2022-12-16 91 /min [facility] in Arterial blood 18:13:00 [place] [facility] by Pulse oximetry Branch Systolic blood 2022-11-06 96 mm[Hg] [facility] pressure 18:56:00 [facility] Diastolic blood 2022-11-06 65 mm[Hg] University o f pressure 18:56:00 [facility] Heart rate 2022-11-06 56 /min [facility] 18:56:00 [facility] Respiratory rate 2022-11-06 18 /min [facility] 18:56:00 [facility] Body height 2022-11-06 121.9 cm [facility] 18:56:00 [facility] Systolic blood 2022-11-06 96 mm[Hg] [facility] pressure 18:21:00 [facility] Diastolic blood 2022-11-06 56 mm[Hg] [facility] f pressure 18:21:00 [facility] Heart rate 2022-11-06 56 /min [facility] 18:21:00 [facility] Respiratory rate 2022-11-06 18 /min [facility] 18:21:00 [facility] Body height 2022-11-06 121.9 cm [facility] 18:21:00 [facility] Body weight 2022-11-06 86.183 kg [facility] 18:21:00 [facility] BMI 2022-11-06 57.98 kg/m2 [facility] 18:21:00 [facility] Oxygen saturation 2022-11-06 96 /min [facility] in Arterial blood 18:21:00 [facility] dilshad by Pulse oximetry Branch Systolic blood 2022-09-13 113 mm[Hg] [facility] pressure 03:30:00 [facility] Diastolic blood 2022-09-13 59 mm[Hg] University o f pressure 03:30:00 [facility] Heart rate 2022-09-13 62 /min [facility] 03:30:00 [facility] Respiratory rate 2022-09-13 17 /min [facility] 03:30:00 [facility] Oxygen saturation 2022-09-13 96 /min [facility] in Arterial blood 03:30:00 [place] [facility] by Pulse oximetry Branch Body temperature 2022-09-13 37.11 Jaqueline [facility] 02:29:00 [facility] Body height 2022-09-13 121.9 cm [facility] 02:29:00 [facility] Body weight 2022-09-13 87.544 kg [facility] 02:29:00 [facility] BMI 2022-09-13 58.89 kg/m2 [facility] 02:29:00 [facility] Systolic blood 2022-09-12 100 mm[Hg] [facility] pressure 18:47:00 [facility] Diastolic blood 2022-09-12 67 mm[Hg] [facility] o f pressure 18:47:00 [facility] Heart rate 2022-09-12 58 /min [facility] 18:47:00 [facility] Body temperature 2022-09-12 36.17 Jaqueline [facility] 18:47:00 [facility] Body weight 2022-09-12 87.544 kg [facility] 18:47:00 [facility] BMI 2022-09-12 58.89 kg/m2 [facility] 18:47:00 [facility] Oxygen saturation 2022-09-12 97 /min [facility] in Arterial blood 18:47:00 [facility] by Pulse oximetry Branch Systolic blood 2022-08-14 122 mm[Hg] [facility] pressure 07:31:00 [facility] Diastolic blood 2022-08-14 55 mm[Hg] University o f pressure 07:31:00 [facility] Heart rate 2022-08-14 55 /min [facility] 07:31:00 [facility] Respiratory rate 2022-08-14 15 /min [facility] 07:31:00 [facility] Oxygen saturation 2022-08-14 94 /min University in Arterial blood 07:31:00 [facility] by Pulse oximetry [place] Body temperature 2022-08-14 37 Jaqueline [facility] 05:10:00 [facility] Body height 2022-08-14 121.9 cm "without my University [facility] 05:10:00 legs" [facility] Body weight 2022-08-14 81.647 kg [facility] 05:10:00 [facility] BMI 2022-08-14 54.93 kg/m2 [facility] 05:10:00 [facility] Systolic blood 2022-08-05 175 mm[Hg] [facility] pressure 18:25:00 [facility] Diastolic blood 2022-08-05 71 mm[Hg] [facility] f pressure 18:25:00 [facility] Heart rate 2022-08-05 60 /min [facility] 18:24:00 [facility] Body temperature 2022-08-05 36.67 Jaqueline [facility] 18:24:00 [facility] Respiratory rate 2022-08-05 18 /min [facility] 18:24:00 [facility] Body height 2022-08-05 121.9 cm [facility] 18:24:00 [facility] Oxygen saturation 2022-08-05 100 /min [facility] in Arterial blood 18:24:00 [place] [facility] by Pulse oximetry Branch Systolic blood 2022-07-31 130 mm[Hg] [facility] pressure 21:05:00 [facility] Diastolic blood 2022-07-31 47 mm[Hg] [facility] o f pressure 21:05:00 [facility] Heart rate 2022-07-31 61 /min [facility] 21:05:00 [facility] Body temperature 2022-07-31 36.83 Jaqueline [facility] 21:05:00 [facility] Respiratory rate 2022-07-31 16 /min [facility] 21:05:00 [facility] Oxygen saturation 2022-07-31 99 /min [facility] in Arterial blood 21:05:00 [facility] dilshad by Pulse oximetry Branch Body height 2022-07-29 121.9 cm [facility] 15:00:00 [facility] Body weight 2022-07-28 92 kg [facility] 07:00:00 [facility] BMI 2022-07-28 61.89 kg/m2 [facility] 07:00:00 [facility] Systolic blood 2022-07-19 116 mm[Hg] [facility] pressure 06:20:00 [facility] Diastolic blood 2022-07-19 82 mm[Hg] [facility] f pressure 06:20:00 [facility] Heart rate 2022-07-19 54 /min [facility] 06:20:00 [facility] Body temperature 2022-07-19 36.5 Jaqueline [facility] 06:20:00 [facility] Respiratory rate 2022-07-19 16 /min [facility] 06:20:00 [facility] Oxygen saturation 2022-07-19 95 /min [facility] in Arterial blood 06:20:00 [place] [facility] by Pulse oximetry Branch Body height 2022-07-19 [address] [facility] of 02:38:00 [facility] Body weight 2022-07-19 79.379 kg University of 02:38:00 [facility] BMI 2022-07-19 53.40 kg/m2 [facility] 02:38:00 [facility] Temperature 2021-06-29 97 [degF] Method: Oral 2.16.840.1.1138 8 13:17:12 3.4.2 Pulse 2021-06-29 77 /min Pattern: 2.16.840.1.1138 8 13:17:12 Regular 3.4.2 Respiration Rate 2021-06-29 18 /min Pattern: 2.16.840.1. 17114 13:17:12 Unlabored 3.4.2 BP Systolic 2021-06-29 139 mm[Hg] Patient 2.16.840.1.1138 8 13:17:12 Position: 3.4.2 Sitting; Cuff Location: Left Arm; Cuff Size: Standard BP Diastolic 2021-06-29 82 mm[Hg] Patient [id number] 8 13:17:12 Position: 3.4.2 Sitting; Cuff Location: Left Arm; Cuff Size: Standard Systolic blood 2022-07-03 122 mm[Hg] [facility] 17:14:00 Hospital Diastolic blood 2022-07-03 57 mm[Hg] [facility] pressure 17:14:00 Hospital Heart rate 2022-07-03 64 /min [facility] 17:14:00 [facility] Body temperature 2022-07-03 37 Jaqueline [facility] 16:20:31 Hospital Respiratory rate 2022-07-03 21 /min [facility] 16:20:31 [facility] Oxygen saturation 2022-07-03 98 /min [facility] in Arterial blood 16:20:31 Hospital by Pulse oximetry Body height 2022-06-29 170.2 cm [facility] 02:00:00 [facility] Body weight 2022-06-28 81.149 kg [facility] 12:00:00 [facility] BMI 2022-06-28 28.02 kg/m2 [facility] 12:00:00 [facility] Systolic blood 2021-12-14 140 mm[Hg] [facility] pressure 16:16:14 Hospital Diastolic blood 2021-12-14 72 mm[Hg] [facility] pressure 16:16:14 Hospital Heart rate 2021-12-14 74 /min [facility] 16:16:14 [facility] Body temperature 2021-12-14 36.22 Jaqueline [facility] 16:16:14 Hospital Respiratory rate 2021-12-14 20 /min [facility] 16:16:14 [facility] Oxygen saturation 2021-12-14 100 /min [facility] in Arterial blood 16:16:14 Hospital by Pulse oximetry Body height 2021-12-11 170.2 cm [facility] 22:35:00 [facility] Body weight 2021-12-11 88.451 kg [facility] 22:35:00 [facility] BMI 2021-12-11 30.54 kg/m2 [facility] 22:35:00 [facility] Systolic blood 2021-02-02 153 mm[Hg] [facility] pressure 16:00:00 Diastolic blood 2021-02-02 79 mm[Hg] [facility] h pressure 16:00:00 Heart rate 2021-02-02 84 /min [facility] 16:00:00 Body temperature 2021-02-02 36.67 Jaqueline [facility] 16:00:00 Respiratory rate 2021-02-02 18 /min [facility] 16:00:00 Oxygen saturation 2021-02-02 97 /[facility] Arter[facility] 16:00:00 by Pulse oximetry Body height 2021-02-02 177.8 cm [facility] 14:44:00 Body weight 2021-02-02 81.647 kg [facility] 14:44:00 BMI 2021-02-02 25.83 kg/m2 [facility] 14:44:00 Temperature Oral 2016-02-16 98 F [facility] rmann (F) 02:05:00 Respitory Rate 2016-02-16 [facility] richie 02:05:00 Heart Rate 2016-02-16 [facility] 02:05:00 Systolic (mm Hg) 2016-02-16 [facility] rmann 02:05:00 Diastolic (mm Hg) 2016-02-16 [facility] H ermann 02:05:00 Temperature Oral 2016-02-15 98.5 F [facility] rmann (F) 20:23:00 Height 2016-02-15 170.18 cm [facility] 20:23:00 BMI Calculated 2016-02-15 [facility] 20:23:00 Weight 2016-02-15 [facility] 20:23:00 Systolic (mm Hg) 2016-02-15 [facility] He rmann 20:23:00 Diastolic (mm Hg) 2016-02-15 [facility] H ermann 20:23:00 Respitory Rate 2016-02-15 [facility] [...] [facility] richie 10:42:00 Systolic (mm Hg) 2015-12-13 [facility] rmann 10:42:00 Diastolic (mm Hg) 2015-12-13 [facility] ermann 10:42:00 Heart Rate 2015-12-13 Ronni Bachan n 10:42:00 Systolic (mm Hg) 2015-12-13 [facility] Codey rmann 08:15:00 Diastolic (mm Hg) 2015-12-13 [facility] Loulou ermann 08:15:00 Respitory Rate 2015-12-13 [facility] richie 08:15:00 Heart Rate 2015-12-13 Ronni Bachan n 08:15:00 BMI Calculated 2015-12-13 [facility] richie 03:44:00 Weight 2015-12-13 Ronni Larry n 03:44:00 Height 2015-12-13 170.18 cm Ronni Bachan n 03:44:00 Systolic (mm Hg) 2015-12-13 [facility] Codey rmann 03:44:00 Diastolic (mm Hg) 2015-12-13 [facility] Loulou ermann 03:44:00 Respitory Rate 2015-12-13 [facility] Isreal richie 03:44:00 Heart Rate 2015-12-13 Ronni Juarez n 03:44:00 Temperature Oral 2015-12-13 98.8 F [facility] rmann (F) 03:44:00 Procedures Procedure Date / Time Performing Clinician Source Performed REFERRAL- 2022-12-24 05:01:00 Doctor Unassigned, No [facility] REQUEST/RESPONSE Name [facility] FREE T4 2022-12-16 18:56:00 Alexandra Finnegan [facility] THYROID STIMULATING 2022-12-16 18:56:00 Alexandra Finnegan [facility] COMP. METABOLIC PANEL 2022-12-16 18:56:00 Alexandra Finnegan [facility] ([id number]) [facility] LIPID PANEL ([id number])(TOTAL 2022-12-16 18:56:00 Alexandra Finnegan [facility] CHOLESTEROL, [facility] TRIGLYCERIDES, HDL) CBC WITH DIFF 2022-12-16 18:56:00 Kain Alexandra [facility] GLYCOSYLATED HEMOGLOBIN 2022-12-16 18:56:00 Alexandra Finnegan [facility] (A1C) Medical Branch INSURANCE CORRESPONDENCE 2022-11-08 05:01:00 Doctor Unassigned, No [facility] Name [facility] HOME HEALTH - OTHER 2022-09-25 05:01:00 Doctor Unassigned, No [facility] 2022-09-13 03:45:38 Hui Paez [facility] BASIC METABOLIC PANEL 2022-09-13 02:46:00 Hui Paez [facility] (NA, K, CL, CO2, GLUCOSE, Medica l Branch BUN, CREATININE, CA) CONSENT/REFUSAL FOR 2022-09-13 02:24:56 Doctor [facility], [facility] XR LUMBAR SPINE 5 VW 2022-09-12 20:57:55 Jaime [facility] XR HIPS 3 VW LEFT 2022-09-12 20:57:55 Kain [facility] PROSTATIC SPECIFIC 2022-09-12 19:52:00 Jaime Finneganssica [facility] ANTIGEN [facility] FREE T4 2022-09-12 19:52:00 Kain [facility] THYROID STIMULATING 2022-09-12 19:52:00 Alexandra Finnegan [facility] HORMONE [facility] COMP. METABOLIC PANEL 2022-09-12 19:52:00 Kain Alexandra [facility] ([id number]) Medical [place] LIPID PANEL ([id number])(TOTAL 2022-09-12 19:52:00 Alexandra Finnegan [facility] CHOLESTEROL, [facility] TRIGLYCERIDES, HDL) CBC WITH DIFF 2022-09-12 19:52:00 Kain [facility] GLYCOSYLATED HEMOGLOBIN 2022-09-12 19:52:00 Kain [facility] (A1C) [facility] URINALYSIS 2022-09-12 19:52:00 Keldron [facility] DME/SUPPLY JUSTIFICATION 2022-09-04 05:01:00 Doctor Unassigned, No [facility] HOME HEALTH - OTHER 2022-08-26 05:01:00 Doctor Unassigned, [facility]SE (AUTOMATED) 2022-08-14 07:28:00 Les Ellsworth [facility] URINE DRUG (IMMUNOASSAY) 2022-08-14 06:10:00 Les Ellsworth [facility] - COMPREHENSIVE DRUG [facility] SCREEN URINALYSIS 2022-08-14 06:10:00 Les Ellsworth [facility] BASIC METABOLIC PANEL 2022-08-14 05:43:00 Les Ellsworth [facility] (NA, K, CL, CO2, GLUCOSE, Medica l Branch BUN, CREATININE, CA) CBC WITH DIFF 2022-08-14 05:43:00 Les Ellsworth [facility] LACTIC ACID WHOLE BLOOD 2022-08-14 05:43:00 Les Ellsworth [facility] CONSENT/REFUSAL FOR 2022-08-14 05:01:57 Doctor Unassigned, No [facility] DIAGNOSIS AND TREATMENT [facility] DNR 2022-08-07 05:01:00 Doctor Unassigned, No Univer s[facility] of [facility] HOME HEALTH 485 2022-08-02 05:01:00 Doctor Unassigned, No Univer sity [facility] POCT GLUCOSE (AUTOMATED) 2022-07-31 22:26:00 Mayo [facility] POCT GLUCOSE (AUTOMATED) 2022-07-31 17:13:00 Mayo [facility] POCT GLUCOSE (AUTOMATED) 2022-07-31 01:46:00 Mayo [facility] POCT GLUCOSE (AUTOMATED) 2022-07-30 23:16:00 Mayo [facility] POCT GLUCOSE (AUTOMATED) 2022-07-30 18:42:00 Mayo [facility] POCT GLUCOSE (AUTOMATED) 2022-07-30 14:18:00 Mayo [facility] MAGNESIUM 2022-07-30 10:58:00 Kelsey [facility] BASIC METABOLIC PANEL 2022-07-30 10:58:00 Mihai Cole [facility] (NA, K, CL, CO2, GLUCOSE, Medica l Branch BUN, CREATININE, CA) CBC WITH DIFF 2022-07-30 10:58:00 Kelsey, [facility] POCT GLUCOSE (AUTOMATED) 2022-07-30 01:36:00 Gael [facility] POCT GLUCOSE (AUTOMATED) 2022-07-29 22:43:00 Gael [facility] POCT GLUCOSE (AUTOMATED) 2022-07-29 18:35:00 Gael [facility] IRON PANEL 2022-07-29 17:06:00 Kel[address] [facility] CT ANGIOGRAM LOWER 2022-07-29 16:36:24 Yordy Thornton [facility] EXTREMITY LEFT W CONTRAST Medica l Branch ACTIVATED PARTIAL 2022-07-29 13:53:00 Yordy Thornton [facility] POCT GLUCOSE (AUTOMATED) 2022-07-29 13:45:00 Malik [facility] MAGNESIUM 2022-07-29 10:36:00 [facility] 2022-07-29 10:36:00 Kelsey [facility] HEPATIC FUNCTION PANEL 2022-07-29 10:36:00 [facility] ([id number] (ALB,T.PRO,BILI Medical Branch T,BU/BC,ALT,AST,ALK PHOS) BASIC METABOLIC PANEL 2022-07-29 10:36:00 Slim [facility] (NA, K, CL, CO2, GLUCOSE, Medica l Branch BUN, CREATININE, CA) CBC WITH DIFF 2022-07-29 10:36:00 [facility] ACTIVATED PARTIAL 2022-07-29 07:13:00 Yordy Thornton [facility] URINALYSIS 2022-07-29 01:44:[address] [facility] CREATININE, URINE RANDOM 2022-07-29 01:44:00 Richard Mccoy [facility] UREA NITROGEN, URINE 2022-07-29 01:44:00 Richard Mccoy [facility] SODIUM, URINE RANDOM 2022-07-29 01:44:00 Richard Mccoy [facility] POCT GLUCOSE (AUTOMATED) 2022-07-29 01:17:00 MayoMalik [facility] POCT GLUCOSE (AUTOMATED) 2022-07-28 21:09:00 Brennan Love [facility] BASIC METABOLIC PANEL 2022-07-28 19:01:00 [facility] (NA, K, CL, CO2, GLUCOSE, Medica l Branch BUN, CREATININE, CA) ACTIVATED PARTIAL 2022-07-28 19:01:00 Yordy Thornton [facility] POCT GLUCOSE (AUTOMATED) 2022-07-28 17:12:00 Brennan Love [facility] BASIC METABOLIC PANEL 2022-07-28 14:28:00 [facility] (NA, K, CL, CO2, GLUCOSE, Medica l Branch BUN, CREATININE, CA) ACTIVATED PARTIAL 2022-07-28 14:28:00 Yordy Thornton [facility] POCT GLUCOSE (AUTOMATED) 2022-07-28 12:52:00 Brennan Love [facility] HB ECG ROUTINE & RHYTHM 2022-07-28 10:09:24 Scooter Barroso [facility] CREATINE KINASE 2022-07-28 08:02:00 Yordy Thornton [facility] C-REACTIVE PROTEIN 2022-07-28 08:02:00 Yordy Thornton [facility] COMP. METABOLIC PANEL 2022-07-28 08:02:00 Yordy Thornton [facility] ([id number]) [facility] VANCOMYCIN RANDOM LEVEL 2022-07-28 08:02:00 Yordy Thornton [facility] SEDIMENTATION RATE 2022-07-28 08:02:00 Yordy Thornton [facility] CBC WITH DIFF 2022-07-28 08:02:00 Yordy Thornton [facility] GLYCOSYLATED HEMOGLOBIN 2022-07-28 08:02:00 Yordy Thornton [facility] (A1C) [facility] PROTHROMBIN TIME / INR 2022-07-28 08:02:00 Yordy Thornton [facility] ACTIVATED PARTIAL 2022-07-28 08:02:00 Yordy Thornton [facility] THRMPLAS [facility] MRSA / MSSA SCREEN BY 2022-07-28 08:02:00 Yordy Thornton [facility] PCR, NARES [facility] POCT GLUCOSE (AUTOMATED) 2022-07-28 08:01:00 Brennan Love [facility] COMP. METABOLIC PANEL 2022-07-19 02:58:00 Adolfo Hurley [facility] ([id number]) [facility] CBC WITH DIFF 2022-07-19 02:58:00 Adolfo Hurley [facility] NOTICE OF PRIVACY 2022-07-19 02:27:02 Doctor Unassigned, No [facility] PRACTICES Name [facility] CONSENT/REFUSAL FOR 2022-07-19 02:25:51 Doctor Unassigned, No [facility] DIAGNOSIS AND TREATMENT Name [facility] POC GLUCOSE 2022-07-03 16:21:00 Naif Cartagena Ho spital POC GLUCOSE 2022-07-03 12:18:00 Naif Cartagena Ho spital POC GLUCOSE 2022-07-03 01:29:00 Naif Cartagena Ho spital POC GLUCOSE 2022-07-02 21:46:00 Naif Cartagena Ho spital POC GLUCOSE 2022-07-02 16:16:00 Naif Cartagena Ho spital POC GLUCOSE 2022-07-02 12:16:00 Naif Cartagena [facility] BASIC METABOLIC PANEL 2022-07-02 10:11:00 Dayna Lutz [facility] ESTIMATED GFR 2022-07-02 10:11:00 Dayna Lutz Ho spital POC GLUCOSE 2022-07-02 01:23:00 Francesca Stevens [facility] spital POC GLUCOSE 2022-07-01 21:46:00 Francesca Stevens spital XR CHEST 1 VW PORTABLE 2022-07-01 20:15:43 Hilda [facility] PICC INSERTION REQUEST 2022-07-01 20:09:45 Autumn Martinez [facility] POC GLUCOSE 2022-07-01 16:17:00 Francesca Stevens spital CARBAPENEMASE GENES 2022-07-01 16:15:00 Hilda [facility] POC GLUCOSE 2022-07-01 12:23:00 Francesca Stevens Ho spital VANCOMYCIN LEVEL, RANDOM 2022-07-01 11:14:00 JoeWilberto freeman [facility] POC GLUCOSE 2022-07-01 01:24:00 Francesca Stevens [facility] spital POC GLUCOSE 2022-06-30 22:08:00 Francesca Stevens spital POC GLUCOSE 2022-06-30 16:12:00 Francesca Stevens spital CARBAPENEMASE GENES 2022-06-30 15:00:00 Hilda [facility] POC GLUCOSE 2022-06-30 12:23:00 Francesca Stevens Ho spital BASIC METABOLIC PANEL 2022-06-30 11:31:00 Hilda [facility] CBC WITH PLATELET AND 2022-06-30 11:31:00 Hilda [facility] DIFFERENTIAL ESTIMATED GFR 2022-06-30 11:31:00 Francesca Stevens Ho spital POC GLUCOSE 2022-06-30 01:47:00 Francesca Stevens Ho spital POC GLUCOSE 2022-06-29 22:47:00 Francesca Stevens Ho spital POC GLUCOSE 2022-06-29 17:19:00 Francesca Stevens [facility] spital POC GLUCOSE 2022-06-29 13:13:00 Francesca Stevens [facility] spital POC GLUCOSE 2022-06-29 02:41:00 Francesca Stevens [facility] spital POC GLUCOSE 2022-06-28 22:40:00 Francesca Stevens [facility] POC GLUCOSE 2022-06-28 17:47:00 Francesca Stevens [facility] POC GLUCOSE 2022-06-28 13:30:00 Younis[facility] BASIC METABOLIC PANEL 2022-06-28 12:11:00 Francesca Stevens [facility] ESTIMATED GFR 2022-06-28 12:11:00 Francesca Stevensist Ho spital POC GLUCOSE 2022-06-28 02:28:00 Younpriyanka, Francesca Faulkner [facility] POC GLUCOSE 2022-06-27 22:12:00 Younpriyanka, [facility]ca [facility] POC GLUCOSE 2022-06-27 17:26:00 Younis, [facility] POC GLUCOSE 2022-06-27 13:29:00 Younis, [facility] POC GLUCOSE 2022-06-27 02:09:00 Younpriyanka, Francesca [facility] POC GLUCOSE 2022-06-26 23:37:00 Francesca Stevensist Ho spital FUNGUS CULTURE 2022-06-26 23:17:00 Davin Walker Ho spital AFB CULTURE 2022-06-26 23:17:00 CassidykoDavin spital GRAM STAIN 2022-06-26 23:17:00 Cassidyko, Davin [facility] [employer] STAIN 2022-06-26 23:17:00 Cassidyko, Davin [facility] [employer] CULTURE 2022-06-26 23:09:00 Cassidyko, Davin [facility] FUNGUS SMEAR 2022-06-26 23:09:00 Aaron, Davin [facility] [employer] STAIN 2022-06-26 23:09:00 Aaron, Jin [facility] FUNGUS CULTURE 2022-06-26 23:09:00 [facility] CO AN ELECTIVE 2022-06-26 22:52:00 Jonathan Danielle [facility] SUPRAGLOTTIC AIRWAY DEBRIDEMENT, LOWER 2022-06-26 22:30:[address] [facility] EXTREMITY ANAEROBIC CULTURE 2022-06-26 22:17:00 Cassidy, [facility] AEROBIC CULTURE 2022-06-26 22:17:00 Cassidy [facility] TISSUE CULTURE 2022-06-26 22:09:00 Rocky Walkero [facility] spital ANAEROBIC CULTURE 2022-06-26 22:09:00 Aaron Davin [facility] POC GLUCOSE 2022-06-26 21:46:00 Francesca Stevens spital POC GLUCOSE 2022-06-26 18:45:00 [facility] VANCOMYCIN LEVEL, RANDOM 2022-06-26 15:33:00 Brian Powell [facility] POC GLUCOSE 2022-06-26 14:15:00 Francesca Stevens [facility] spital CBC WITH PLATELET AND 2022-06-26 11:43:00 Brian Powell [facility] DIFFERENTIAL BASIC METABOLIC PANEL 2022-06-26 11:43:00 Brian Powell [facility] MAGNESIUM LEVEL 2022-06-26 11:43:00 Brian Powell [facility] PROTHROMBIN TIME WITH INR 2022-06-26 11:43:00 Louisa Escobar [facility] ESTIMATED GFR 2022-06-26 11:43:00 Brian Powell [facility] POC GLUCOSE 2022-06-26 02:46:00 [facility] LACTIC ACID LEVEL, SEPSIS 2022-06-26 02:02:00 Brian Powell [facility] - NOW AND REPEAT 2X EVERY 3 HOURS POC GLUCOSE 2022-06-25 22:12:00 Francesca Stevens [facility] spital LACTIC ACID LEVEL, SEPSIS 2022-06-25 22:06:00 Brian Powell [facility] - NOW AND REPEAT 2X EVERY 3 HOURS ECG 12-LEAD 2022-06-25 19:43:10 Brian Powell [facility] INFLUENZA ANTIGEN TEST, 2022-06-25 19:18:00 Brian Powell [facility] REFLEX NEGATIVE TO RPP RESPIRATORY PATHOGEN 2022-06-25 19:18:00 Brian Powell [facility] PANEL WITH COVID-19 RT-PCR METHICILLIN-RESISTANT 2022-06-25 19:15:00 [facility] STAPHYLOCOCCUS AUREUS (MRSA), LEILANI LACTIC ACID LEVEL, SEPSIS 2022-06-25 19:01:00 [facility] - NOW AND REPEAT 2X EVERY 3 HOURS XR CHEST 1 VW PORTABLE 2022-06-25 18:53:03 [facility] XR FEMUR 2 VW LEFT 2022-06-25 18:52:28 [facility] BLOOD CULTURE, AEROBIC & 2022-06-25 18:05:00 [facility] ANAEROBIC BLOOD CULTURE, AEROBIC & 2022-06-25 18:00:00 [facility] ANAEROBIC CBC WITH PLATELET AND 2022-06-25 17:56:00 [facility] DIFFERENTIAL COMPREHENSIVE METABOLIC 2022-06-25 17:56:00 [facility] PANEL PROTHROMBIN TIME WITH INR 2022-06-25 17:56:00 [facility] ESTIMATED GFR 2022-06-25 17:56:00 [facility] MAGNESIUM LEVEL 2022-06-25 17:56:00 [facility] POC GLUCOSE 2022-06-25 17:06:00 Francesca Stevens [facility] spital POC GLUCOSE 2022-05-14 17:15:00 Harinder [facility] VENIPUNC NEED PHYS 2022-05-14 16:30:00 Zechariah Washington [facility] SKILL,DX OR RX POC GLUCOSE 2022-05-14 13:17:00 Harinder [facility] CBC WITH PLATELET AND 2022-05-14 11:43:00 Ron Pizano [facility] DIFFERENTIAL BASIC METABOLIC PANEL 2022-05-14 11:43:00 Ron Pizano [facility] ESTIMATED GFR 2022-05-14 11:43:00 Harinder [facility] POC GLUCOSE 2022-05-14 02:36:00 Harinder [facility] POC GLUCOSE 2022-05-13 22:14:00 Harinder [facility] POC GLUCOSE 2022-05-13 17:21:00 Harinder, [facility] POC GLUCOSE 2022-05-13 13:25:00 Harinder, [facility] CBC WITH PLATELET AND 2022-05-13 11:23:00 Harinder [facility] DIFFERENTIAL BASIC METABOLIC PANEL 2022-05-13 11:23:00 Harinder [facility] ESTIMATED GFR 2022-05-13 11:23:00 Harinder [facility] POC GLUCOSE 2022-05-13 02:26:00 Harinder [facility] POC GLUCOSE 2022 22:54:00 Harinder [facility] POC GLUCOSE 2022 17:23:00 Harinder [facility] POC GLUCOSE 2022 13:33:00 Harinder, [facility] CBC WITH PLATELET AND 2022 10:15:00 Harinder [facility] DIFFERENTIAL BASIC METABOLIC PANEL 2022 10:15:00 [facility] ESTIMATED GFR 2022 10:15:00 [facility] 2022 03:36:00 Harinder [facility] POC GLUCOSE 2022-05-11 22:17:00 [facility] BLOOD CULTURE, AEROBIC & 2022-05-11 21:45:00 Mi Cruz [facility] ANAEROBIC BLOOD CULTURE, AEROBIC & 2022-05-11 21:28:00 LucMi obrien [facility] ANAEROBIC POC GLUCOSE 2022-05-11 17:11:00 Harinder, [facility] POC GLUCOSE 2022-05-11 13:14:00 [facility] CBC WITH PLATELET AND 2022-05-11 10:35:00 Harinder [facility] DIFFERENTIAL BASIC METABOLIC PANEL 2022-05-11 10:35:00 Harinder [facility] ESTIMATED GFR 2022-05-11 10:35:00 [facility] POC [facility]UCOSE 2022-05-11 02:33:00 [facility] POC GLUCOSE 2022-05-10 22:49:00 [facility] BLOOD [facility], AEROBIC & 2022-05-10 22:13:00 Nancy [facility] ANAEROBIC HC NERVE BLOCK INJ 2022-05-10 19:31:21 [facility] F[facility]ORAL SINGLE W IMG GUID HC ANESTH SCIATIC NERVE 2022-05-10 19:23:41 [facility] P[facility]SE 2022-05-10 18:34:00 [facility] SURGICAL PATHOLOGY 2022-05-10 18:13:00 [facility] CO AN ELECTIVE 2022-05-10 17:24:00 Mari Gamboa [facility] SUPRAGLOTTIC AIRWAY AMPUTATION, BELOW KNEE 2022-05-10 16:57:00 Aaron [facility] POC GLUCOSE 2022-05-10 15:58:00 [facility] TTE COMPLETE, WO 2022-05-10 14:38:42 Nancy [facility] CONTRAST, W DOPPLER ([id number]) POC GLUCOSE 2022-05-10 13:14:00 Harinder [facility] CBC WITH PLATELET AND 2022-05-10 12:19:00 Ron Pizano [facility] DIFFERENTIAL BASIC METABOLIC PANEL 2022-05-10 12:19:00 Barrett P[facility]anoFormerly [facility] PARTIAL THROMBOPLASTIN 2022-05-10 12:19:00 [facility] TIME (PTT) PROTHROMBIN TIME WITH INR 2022-05-10 12:19:00 [facility] ESTIMATED GFR 2022-05-10 12:19:00 [facility] POC GLUCOSE 2022-05-10 03:02:00 [facility] POC GLUCOSE 2022-05-09 22:30:00 [facility] POC GLUCOSE 2022-05-09 18:05:00 [facility] US ANKLE BRACHIAL INDEX 2022-05-09 17:33:01 Gail [facility] VANCOMYCIN LEVEL, RANDOM 2022-05-09 16:42:00 Chika[facility] POC GLUCOSE 2022-05-09 13:14:00 [facility] CBC WITH PLATELET AND 2022-05-09 11:25:00 [facility] DIFFERENTIAL [facility] MAGNESIUM LEVEL 2022-05-09 11:25:00 TraceemeGail lima [facility] ospital [facility] COMPREHENSIVE METABOLIC 2022-05-09 11:25:00 [facility] prebleGail keenan [facility] PANEL Gajonera ESTIMATED GFR 2022-05-09 11:25:00 TraceemeGail lima [facility] MANUAL DIFFERENTIAL 2022-05-09 11:25:00 [facility] P[facility] 2022-05-09 02:55:00 Noman Brewer Ho ramona MRI FOOT WO CONTRAST LEFT 2022-05-09 02:37:17 [facility] prebleGail keenan [facility] POC GLUCOSE 2022-05-08 22:46:00 Noman Brewer Ho spital COVID-19 QUALITATIVE 2022-05-08 22:35:[address] [facility] RT-PCR Scooter XR FOOT 3+ VW LEFT 2022-05-08 19:44:29 [facility] Scooter BLOOD CULTURE, AEROBIC & 2022-05-08 19:34:00 Chika [facility] ANAEROBIC Scooter CBC WITH PLATELET AND 2022-05-08 19:34:00 [facility] DIFFERENTIAL [facility] COMPREHENSIVE METABOLIC 2022-05-08 19:34:00 ChikaKenneth cancino [facility] PANEL Scooter C-REACTIVE PROTEIN 2022-05-08 19:34:00 [facility] Scooter SEDIMENTATION RATE 2022-05-08 19:34:00 Chika, Kenneth [facility] Scooter ESTIMATED GFR 2022-05-08 19:34:00 Chika [facility] Scooter MANUAL DIFFERENTIAL 2022-05-08 19:34:00 Chika [facility] Scooter POC GLUCOSE 2022-05-08 18:06:00 Chika [facility] ospital [facility] POC GLUCOSE 2022-04-19 22:41:00 Ricky, July [facility] CV TRANSESOPHAGEAL 2022-04-19 20:35:00 Sharon Mcmillan [facility] ECHOCARDIOGRAM W Angel CARDIOVERSION ECG 12-LEAD 2022-04-19 20:33:57 Jaspreet Cannon [facility] POC GLUCOSE 2022-04-19 17:28:00 Nadimpalli, July [facility] POC GLUCOSE 2022-04-19 13:31:00 Nadimpalli, July [facility] CBC HEMOGRAM 2022-04-19 12:19:00 Nadimpalli, July [facility] BASIC METABOLIC PANEL 2022-04-19 12:19:00 Ricky [facility] MAGNESIUM LEVEL 2022-04-19 12:19:00 Nadimpalli, July [facility] ESTIMATED GFR 2022-04-19 12:19:00 Nadimpalli, July [facility] POC GLUCOSE 2022-04-19 10:28:00 Nadimpalli, July [facility] POC GLUCOSE 2022-04-19 06:29:00 Nadimpalli, [facility] POC GLUCOSE 2022-04-19 02:51:00 Nadimpalli, [facility] POC GLUCOSE 2022-04-18 22:27:00 Nadimpalli, July [facility] POC GLUCOSE 2022-04-18 17:02:00 Nadimpalli, [facility] POC GLUCOSE 2022-04-18 13:25:00 Nadimpalli, [facility] CBC HEMOGRAM 2022-04-18 12:36:00 Nadimpalli, [facility] BASIC METABOLIC PANEL 2022-04-18 12:36:00 [facility] ESTIMATED GFR 2022-04-18 12:36:00 Nadimpalli, [facility] POC GLUCOSE 2022-04-18 10:01:00 Nadimpalli, [facility] POC GLUCOSE 2022-04-18 07:11:00 Nadimpalli, July [facility] URINE DRUGS OF ABUSE 2022-04-18 03:32:00 [facility] POC GLUCOSE 2022-04-18 02:35:00 Nadimpalli, [facility] POC GLUCOSE 2022-04-17 23:00:00 Naddawsoni, [facility] NM MYOCARDIAL PERFUSION 2022-04-17 20:04:00 [facility] REST STRESS 1 DAY CV STRESS TEST NUCLEAR 2022-04-17 20:04:00 [facility] CARDIO POC GLUCOSE 2022-04-17 17:10:00 Nadimpalli, July [facility] POC GLUCOSE 2022-04-17 13:48:00 Naddawsoni, July [facility] BASIC METABOLIC PANEL 2022-04-17 11:17:00 [facility] CBC HEMOGRAM 2022-04-17 11:17:00 Naddawsoni, July [facility] MAGNESIUM LEVEL 2022-04-17 11:17:00 Nadimpalli, July [facility] ESTIMATED GFR 2022-04-17 11:17:00 Nadimpalli, [facility] POC GLUCOSE 2022-04-17 10:13:00 Nadimpalli, [facility] POC GLUCOSE 2022-04-17 06:09:00 Nadimpalli, July [facility] POC GLUCOSE 2022-04-17 02:46:00 Nadimpalli, [facility] POC GLUCOSE 2022-04-16 23:09:00 Nadimpalli, [facility] POC GLUCOSE 2022-04-16 17:53:00 Nadimpalljulita July [facility] POC GLUCOSE 2022-04-16 13:40:[address] Groupimpalli, July [facility] POC GLUCOSE 2022-04-16 10:34:00 Nadmarinhealth medical centeralljulita, July [facility] CBC HEMOGRAM 2022-04-16 09:46:00 [facility] BASIC METABOLIC PANEL 2022-04-16 09:46:00 [facility] PARTIAL THROMBOPLASTIN 2022-04-16 09:46:00 [facility] TIME (PTT) ESTIMATED GFR 2022-04-16 09:46:00 Uriel Pastor Ho spital POC GLUCOSE 2022-04-16 06:16:00 [facility] POC GLUCOSE 2022-04-16 02:38:00 [facility] POC GLUCOSE 2022-04-15 23:20:00 Uriel Pastor [facility] PARTIAL THROMBOPLASTIN 2022-04-15 20:59:00 UgoeRenetta hodges [facility] TIME (PTT) POC GLUCOSE 2022-04-15 17:50:00 Uriel Pastor spital PARTIAL THROMBOPLASTIN 2022-04-15 14:26:00 UgRenetta bhandari [facility] TIME (PTT) POC GLUCOSE 2022-04-15 13:50:00 [facility]riel [facility] CBC HEMOGRAM 2022-04-15 09:50:00 Ugoetracie [facility] HERPES SIMPLEX VIRUS BY 2022-04-15 09:50:00 Uriel Pastor [facility] PCR HIV 1/2 ANTIGEN/ANTIBODY, 2022-04-15 09:50:00 Uriel Pastor [facility] FOURTH GENERATION, WITH REFLEXES BASIC METABOLIC PANEL 2022-04-15 09:50:00 [facility] ESTIMATED GFR 2022-04-15 09:50:00 Uriel [facility] POC GLUCOSE 2022-04-15 09:49:00 Uriel Past[facility] POC GLUCOSE 2022-04-15 06:33:00 Uriel Past[facility] POC GLUCOSE 2022-04-15 05:30:00 Uriel Pastor spital PARTIAL THROMBOPLASTIN 2022-04-15 05:29[facility] 2022-04-15 02:07:00 Uriel Pastor [facility] POC GLUCOSE 2022-04-14 23:24:00 Uriel Pastor spital PARTIAL THROMBOPLASTIN 2022-04-14 22:35[facility]00 [facility] 2022-04-14 17:22:00 Uriel Pastor spital URINALYSIS SCREEN AND 2022-04-14 17:00:00 [facility] MICROSCOPY, WITH REFLEX TO CULTURE TTE COMPLETE, W CONTRAST, 2022-04-14 16:06:00 [facility] W DOPPLER ([id number]) PARTIAL THROMBOPLASTIN 2022-04-14 15:38:00 [facility] TIME (PTT) POC GLUCOSE 2022-04-14 13:37:00 Uriel Pastor [facility] CBC HEMOGRAM 2022-04-14 11:19:00 [facility] BASIC METABOLIC PANEL 2022-04-14 11:19:00 Fahad Costello [facility] Efren MAGNESIUM LEVEL 2022-04-14 11:19:00 Fahad Costello nora Schwartz ESTIMATED GFR 2022-04-14 11:19:00 Fahad Costello POC GLUCOSE 2022-04-14 10:26:00 Fahad Costello POC GLUCOSE 2022-04-14 07:01:00 [facility]EL 2022-04-14 06:28:00 Ugoeke [facility] THYROID STIMULATING 2022-04-14 06:28:00 Ugoetracie [facility] HORMONE PARTIAL THROMBOPLASTIN 2022-04-14 06:28:00 Fahad Costello [facility] TIME (PTT) Efren POC GLUCOSE 2022-04-14 01:54:00 Fahad Costello ospital Efren POC GLUCOSE 2022-04-14 00:05:00 Fahad Costello osleonel Schwartz XR ABDOMEN 1 VW 2022-04-13 23:25:05 René Baird [facility] POC GLUCOSE 2022-04-13 22:54:00 Fahad Costello ospital Efren ECG 12-LEAD 2022-04-13 21:50:51 Ugelisabet [facility] BETA HYDROXYBUTYRATE 2022-04-13 21:01:00 [facility] 2022-04-13 21:01:00 René Baird spital ESTIMATED GFR 2022-04-13 21:01:00 René Baird spital TROPONIN T 2022-04-13 21:01:00 René Baird spital PHOSPHORUS LEVEL 2022-04-13 21:01:00 René Baird ospital BASIC METABOLIC PANEL 2022-04-13 21:01:00 René Baird [facility] POC GLUCOSE 2022-04-13 20:54:00 Fahad Costello ospital Efren ECG 12-LEAD 2022-04-13 20:37:02 Ugoetracie [facility] TROPONIN T 2022-04-13 20:16[facility] 2022-04-13 19:03:00 Fahad Costello ospital Efren POC GLUCOSE 2022-04-13 14:07:00 Fahad Costello [facility]ital Efren TROPONIN T 2022-04-13 13:25:00 [facility]goetracie [facility] TROPONIN T 2022-04-13 12:11:00 [facility] PARTIAL THROMBOPLASTIN 2022-04-13 12:11:00 [facility] TIME (PTT) PROTHROMBIN TIME WITH INR 2022-04-13 12:11:00 [facility] ANTI XA, UNFRACTIONATED 2022-04-13 12:11:00 [facility] ECG 12-LEAD 2022-04-13 11:43:39 [facility] POC GLUCOSE 2022-04-13 11:41:00 [facility] POC GLUCOSE 2022-04-13 07:07:00 [facility] COVID-19 QUALITATIVE 2022-04-13 05:26:00 [facility] RT-PCR [place] POC GLUCOSE 2022-04-13 05:13:00 [facility] POC GLUCOSE 2022-04-13 04:36:[address] [facility] [address] ANGIOGRAM PE CHEST 2022-04-13 01:07:30 [facility] [place] ECG 12-LEAD 2022-04-12 22:44:44 [facility] [place] XR CHEST 1 VW PORTABLE 2022-04-12 22:03:54 [facility] [place] ECG ED PRELIMINARY 2022-04-12 21:56:45 [facility] INTERPRETATION [place] CO CRITICAL CARE 2022-04-12 21:56:45 [facility] ILL/INJURED PATIENT INIT [place] 30-74 MIN CBC WITH PLATELET AND 2022-04-12 21:56:00 [facility] DIFFERENTIAL [place] COMPREHENSIVE METABOLIC 2022-04-12 21:56:00 [facility] PANEL [place] TROPONIN T 2022-04-12 21:56:00 [facility] [place] B NATRIURETIC PEPTIDE 2022-04-12 21:56:00 [facility] [place] ESTIMATED GFR 2022-04-12 21:56:00 [facility] [place] POC GLUCOSE 2022-03-14 21:43:00 [facility] P[facility]SE 2022-03-14 17:02:00 [facility], [facility] POC GLUCOSE 2022-03-14 13:46:00 [facility], [facility] POC GLUCOSE 2022-03-14 03:02:00 [facility]qu[facility], [facility] POC GLUCOSE 2022-03-13 23:33:00 [facility]qu[facility], [facility] POC GLUCOSE 2022-03-13 18:05:00 [facility], [facility] POC GLUCOSE 2022-03-13 13:57:00 [facility]qu[facility], [facility] POC GLUCOSE 2022-03-13 02:06:00 [facility], [facility] POC GLUCOSE 2022-03-12 22:33:00 [facility], [facility] POC GLUCOSE 2022-03-12 21:31:00 [facility], [facility] LOWER EXTREMITY 2022-03-12 20:07:00 Davin Walker [facility] ANGIOGRAM,POSSIBLE ANGIOPLASTY,POSSIBLE STENT POC GLUCOSE 2022-03-12 15:51:00 [facility]quias, [facility] CBC WITH PLATELET AND 2022-03-12 10:36:00 Ron Pizano Met [facility] DIFFERENTIAL BASIC METABOLIC PANEL 2022-03-12 10:36:00 Ron Pizano Ding Met [facility] PROTHROMBIN TIME WITH INR 2022-03-12 10:36:00 [facility] ESTIMATED GFR 2022-03-12 10:36:00 Ron Pizano [facility] POC GLUCOSE 2022-03-12 02:25:00 Ron Pizano [facility] USPV RADHA EXTREMITY 2022-03-11 23:31:00 ShawnLouisa perez [facility] BILATERAL POC GLUCOSE 2022-03-11 23:16:00 Harinder [facility] POC GLUCOSE 2022-03-11 17:42:00 Harinder [facility] POC GLUCOSE 2022-03-11 13:36:00 Harinder, [facility] CBC WITH PLATELET AND 2022-03-11 12:48:00 Harinder [facility] DIFFERENTIAL COMPREHENSIVE METABOLIC 2022-03-11 12:48:00 Harinder [facility] PANEL ESTIMATED GFR 2022-03-11 12:48:00 Harinder [facility] POC GLUCOSE 2022-03-11 02:16:00 Harinder [facility] METHICILLIN-RESISTANT 2022-03-11 00:23:00 Laurence Abreu [facility] STAPHYLOCOCCUS AUREUS Iola (MRSA), LEILANI POC GLUCOSE 2022-03-10 22:58:00 Harinder, [facility] VANCOMYCIN LEVEL, RANDOM 2022-03-10 20:31:00 Bridgette Hernandez [facility] POC GLUCOSE 2022-03-10 17:46:00 Harinder, [facility] POC GLUCOSE 2022-03-10 13:57:00 Harinder [facility] CBC WITH PLATELET AND 2022-03-10 09:15:00 Harinder [facility] DIFFERENTIAL COMPREHENSIVE METABOLIC 2022-03-10 09:15:00 Harinder, [facility] PANEL MAGNESIUM LEVEL 2022-03-10 09:15:00 [facility] 2022-03-10 09:15:00 Harinder [facility] POC GLUCOSE 2022-03-10 02:19:00 Harinder [facility] POC GLUCOSE 2022-03-09 22:28:00 Harinder, [facility] METHICILLIN-RESISTANT 2022-03-09 18:20:00 Harinder [facility] STAPHYLOCOCCUS AUREUS (MRSA), LEILANI POC GLUCOSE 2022-03-09 17:16:00 Harinder, [facility] POC GLUCOSE 2022-03-09 08:46:00 Jeff Short [facility] POC GLUCOSE 2022-03-09 07:16:00 Jeff Short [facility] COVID-19 QUALITATIVE 2022-03-09 07:14:00 [facility] RT-PCR COMPREHENSIVE METABOLIC 2022-03-09 06:10:00 [facility] PANEL HEMOGLOBIN A1C 2022-03-09 06:10:00 Tonie-OgEdgar [facility] ospital [employer] LIPID PANEL 2022-03-09 06:10:00 [facility] FOOT 3+ VW LEFT 2022-03-09 05:56:37 [facility] BETA HYDROXYBUTYRATE 2022-03-09 05:43:00 [facility] CBC WITH PLATELET AND 2022-03-09 05:35:00 [facility] DIFFERENTIAL LACTIC ACID LEVEL, SEPSIS 2022-03-09 05:35:00 [facility] NOW AND REPEAT 2X EVERY 3 HOURS VENOUS BLOOD GAS 2022-03-09 05:35:00 [facility] ESTIMATED GFR 2022-03-09 05:35:00 [facility] POC GLUCOSE 2022-03-09 03:55:00 Yvonne Hodges [facility] POC GLUCOSE 2021-12-14 16:15:00 René De Jesus nora Arredondo POC GLUCOSE 2021-12-14 12:10:00 René De Jesus osleonel Arredondo POC GLUCOSE 2021-12-14 01:40:00 René De Jesuspital Arnulfo POC GLUCOSE 2021-12-13 21:17:00 René De Jesus POC GLUCOSE 2021-12-13 16:05:00 René De Jesus POC GLUCOSE 2021-12-13 12:22:00 René De Jesus POC GLUCOSE 2021-12-13 01:36:00 René De Jesus POC GLUCOSE 2021-12-12 22:00:00 René De Jesus V[facility]IP[facility] NEED PHYS 2021-12-12 17:56:39 Fermin Trinh [facility] SKILL,DX OR RX POC GLUCOSE 2021-12-12 16:34:00 René De Jesus osleonel Arnulfo POC GLUCOSE 2021-12-12 12:27:00 [facility]OL[facility]EL 2021-12-12 10:55:[address] [facility] Arnulfo CBC WITH PLATELET AND 2021-12-12 10:55:[address] [facility] DIFFERENTIAL Arnulfo ESTIMATED GFR 2021-12-12 10:55:00 [facility] 2021-12-12 10:54[facility] Harjinder ZZCOVID-19 SEROLOGY 2021-12-12 10:54:00 [facility] PATIENT SURVEILLANCE Harjinder POC GLUCOSE 2021-12-12 03:38:00 René De Jesus [facility] POC GLUCOSE 2021-12-12 01:22:00 René De Jesus [facility] POC GLUCOSE 2021-12-11 22:32:00 René De Jesus [facility] POC GLUCOSE 2021-12-11 17:04:00 René De Jesus [facility] POC GLUCOSE 2021-12-11 13:53:00 René De Jesus [facility] POC GLUCOSE 2021-12-11 08:48:00 [facility] POC GLUCOSE 2021-12-11 07:29:00 [facility] POC GLUCOSE 2021-12-11 06:36:00 [facility] COVID-19 QUALITATIVE 2021-12-11 05:55:00 Wilberto Carbajal [facility] RT-PCR POC GLUCOSE 2021-12-11 05:34:00 Wilberto Carbajal [facility] CBC WITH PLATELET AND 2021-12-11 04:02:00 Wilberto Carbajal [facility] DIFFERENTIAL COMPREHENSIVE METABOLIC 2021-12-11 04:02:00 Wilberto Carbajla [facility] PANEL LIPASE LEVEL 2021-12-11 04:02:00 Wilberto Carbajal [facility] BETA HYDROXYBUTYRATE 2021-12-11 04:02:00 Wilberto Carbajal [facility] VENOUS BLOOD GAS 2021-12-11 04:02:00 Wilberto Carbajal [facility] ESTIMATED GFR 2021-12-11 04:02:[address] [facility] PELVIS WO 2021-12-11 02:47:59 Wilberto Carbajal [facility] CONTRAST URINE CULTURE 2021-12-11 02:24:00 [facility] URINALYSIS SCREEN AND 2021-12-11 01:10:00 Wilberto Carbajal [facility] MICROSCOPY, WITH REFLEX TO CULTURE URINE CULTURE 2021-11-08 17:34:00 Thong Cartagena spital URINALYSIS SCREEN AND 2021-11-08 16:54:00 [facility] MICROSCOPY, WITH REFLEX TO CULTURE CT RENAL STONE PROTOCOL 2021-11-08 16:35:59 [facility] CBC WITH PLATELET AND 2021-11-08 16:05:00 [facility] DIFFERENTIAL BASIC METABOLIC PANEL 2021-11-08 16:05:00 [facility] LIPASE LEVEL 2021-11-08 16:05:00 Thong Cartagena spital HEPATIC FUNCTION PANEL 2021-11-08 16:05:00 [facility] ESTIMATED GFR 2021-11-08 16:05:00 Thong Cartagena spital POC GLUCOSE 2021-11-08 15:52:00 MitziThong spital ECG ED PRELIMINARY 2021-10-11 04:49:00 [facility] 12-LEAD 2021-10-11 03:14:36 Norberto Lanier [facility] CBC WITH PLATELET AND 2021-10-11 02:57:00 Norberto Lanier [facility] DIFFERENTIAL COMPREHENSIVE METABOLIC 2021-10-11 02:57:00 [facility]IN T 2021-10-11 02:57:00 Lanier, [facility] B NATRIURETIC PEPTIDE 2021-10-11 02:57:00 Norberto Lanier [facility] PROTHROMBIN TIME WITH INR 2021-10-11 02:57:00 Norberto Lanier [facility] PARTIAL THROMBOPLASTIN 2021-10-11 02:57:00 Norberto Lanier [facility] TIME (PTT) ESTIMATED GFR 2021-10-11 02:57:00 [facility] 2 VW 2021-10-11 02:05:13 [facility] DIABET[facility] FOOT EXAMINATION 2021-06-29 00:00:00 Virgilio Garcia [id number]. (8F) 2 MOST RECENT DIASTOLIC 2021-06-29 00:00:00 Virgilio Garcia 2.16.8 [id number]. BLOOD PRESSURE 80-89 MM 2 HG (HTN, CKD, CAD) (DM) (3079F) MOST RECENT SYSTOLIC 2021-06-29 00:00:00 Virgilio Garcia 2.16.84 [id number]. BLOOD PRESSURE 130-139 MM 2 HG (DM),(HTN, CKD, CAD) (3075F) NEGATIVE SCREEN FOR 2021-06-29 00:00:00 Virgilio Garcia [id number]. CLINICAL DEPRESSION, 2 FOLLOW-UP NOT REQUIRED (G8510) PATIENT IDENTIFIED A 2021-06-29 00:00:00 Virgilio Garcia [id number]. TOBACCO USER RECEIVED 2 TOBACCO CESSATION INTERVENTION (COUNSELING AND/OR PHARMACOTHERAPY) (G9906) SCREENING FOR TOBACCO USE 2021-06-29 00:00:00 Virgilio Garcia [id number]. (4004F) 2 PATIENT SCREENED FOR 2021-06-29 00:00:00 Virgilio Garcia 2.16.84 [id number]. TOBACCO USE AND 2 IDENTIFIED A TOBACCO USER (G9902) XRAY FOOT 3 VIEWS - 2021-02-02 15:18:[address] [facility] ROUTINE CBC/DIFF 2021-02-02 15:12:00 Jamin Lopez alth BASIC METABOLIC PANEL 2021-02-02 15:12:00 Jamin Lopez [facility] CBC 2021-02-02 15:12:00 Jamin Lopez alth URINE CULTURE 2021-01-03 04:26:00 [facility] Richard URINALYSIS SCREEN AND 2021-01-03 04:26:00 [facility] MICROSCOPY, WITH REFLEX Richard TO CULTURE LACTIC ACID LEVEL, SEPSIS 2021-01-03 03:04:00 [facility] - NOW AND REPEAT 2X EVERY Richard 3 HOURS TROPONIN 2021-01-03 03:04:00 [facility] US DUPLEX VENOUS LOWER 2021-01-03 01:53:13 [facility] EXTREMITY RIGHT Richard ECG ED PRELIMINARY 2021-01-03 01:17:47 [facility] INTERPRETATION Richard XR TIBIA FIBULA 2 VW 2021-01-03 01:05:31 [facility] RIGHT Richard XR FOOT 3+ VW LEFT 2021-01-03 01:05:05 [facility] Richard ECG 12-LEAD 2021-01-03 00:52:38 [facility] Richard BLOOD CULTURE, AEROBIC & 2021-01-03 00:47:00 [facility] ANAEROBIC Richard BLOOD CULTURE, AEROBIC & 2021-01-03 00:45:00 [facility] ANAEROBIC Richard HC COMPLETE BLD COUNT 2021-01-03 00:43:00 [facility] W/AUTO DIFF Richard BASIC METABOLIC PANEL 2021-01-03 00:43:00 [facility] Richard HEPATIC FUNCTION PANEL 2021-01-03 00:43:00 [facility] Richard LACTIC ACID LEVEL, SEPSIS 2021-01-03 00:43:00 [facility] NOW AND REPEAT 2X EVERY Richard 3 HOURS LIPASE LEVEL 2021-01-03 00:43:00 [facility] Richard TROPONIN 2021-01-03 00:43:00 [facility] B NATRIURETIC PEPTIDE 2021-01-03 00:43:00 Dominicvipul [facility] Richard ESTIMATED GFR 2021-01-03 00:43:00 [facility] Richard Amputation 2020-08-04 00:00:00 [facility] [id number]. 2 [id number] 2020-07-04 00:00:00 DAVJO.04 [facility] [id number] 2020-07-04 00:00:00 DAVJO.04 [facility] [id number] 2020-07-04 00:00:00 DAVJO.04 [facility] [id number] 2020-07-04 00:00:00 DAVJO.04 [facility] [id number] 2020-07-04 00:00:00 DAVJO.04 [facility] [id number] 2020-07-04 00:00:00 DAVJO.04 [facility] [id number] 2020-07-04 00:00:00 DAVJO.04 [facility] [id number] 2020-07-04 00:00:00 DAVJO.04 [facility] [id number] 2020-07-01 00:00:00 [facility] [id number] 2020-07-01 00:00:00 [facility] [id number] 2020-07-01 00:00:00 [facility] [id number] 2020-07-01 00:00:00 [facility] Annual Eye Exam - FOR [facility] [id number]. NON-DIABETICS ONLY 2 COLONOSCOPY IN ADULT [facility] [id number]. [id number]. (76939) 2 Patient received annual [facility] 2..840 .[id number]. dental check-up 2 Teeth [facility] [id number] 3.4. 2 Plan of Care Planned Activity Planned Date Details Comments Source Future Scheduled 2023-02-17 Scre[facility] Test 13:20:53 malignant neoplasm of colon (procedure) [code = 301339293] Future Scheduled 2023-02-17 Screening for [facility] Test 13:20:53 malignant neoplasm of colon (procedure) [code = 580320347] Future Scheduled 2023-02-17 Scre[facility] for [facility] Test 13:20:53 malignant neoplasm of colon (procedure) [code = 445397957] Future Scheduled 2023-02-17 COVID-19 VACCINE (#1) [facility] Test 13:20:53 [code = COVID-19 VACCINE (#1)] Future Scheduled 2023-02-17 DIABETES: RETINAL EYE [facility] Test 13:20:53 EXAM [code = DIABETES: RETINAL EYE EXAM] Future Scheduled 2023-02-17 DIABETIC FOOT EXAM [facility] Test 13:20:53 [code = DIABETIC FOOT EXAM] Future Scheduled 2023-02-17 URINE MICROALBUMIN [facility] Test 13:20:53 [code = URINE MICROALBUMIN] Future Scheduled 2023-02-17 Hepatitis C screening [facility] Test 13:20:53 (procedure) [code = 393277791] Future Scheduled 2023-02-17 Screening for [facility] Test 13:20:53 malignant neoplasm of colon (procedure) [code = 880780158] Future Scheduled 2023-02-17 Scre[facility] for [facility] Test 13:20:53 malignant neoplasm of colon (procedure) [code = 595290921] Future Scheduled 2023-02-17 [facility] for [facility] Test 13:20:53 malignant neoplasm of lung (procedure) [code = 451419430] Future Scheduled 2023-02-17 SHINGLES VACCINES ([facility] 13:20:53 of 2) [code = SHINGLES VACCINES (1 of 2)] Future Scheduled 2023-02-17 INFLUENZA VACCINE (#1) [facility] Test 13:20:53 [code = INFLUENZA VACCINE (#1)] Future Scheduled 2023-01-30 Scre[facility] Test 14:16:00 malignant neoplasm of colon (procedure) [code = 857130130] Future Scheduled 2023-01-30 Scre[facility] Test 14:16:00 malignant neoplasm of colon (procedure) [code = 067969056] Future Scheduled 2023-01-30 [facility] Test 14:16:00 malignant neoplasm of colon (procedure) [code = 554376664] Future Scheduled 2023-01-30 COVID-19 VACCINE (#1) [facility] Test 14:16:00 [code = COVID-19 VACCINE (#1)] Future Scheduled 2023-01-30 DIABETES: RETINAL EYE [facility] Test 14:16:00 EXAM [code = DIABETES: RETINAL EYE EXAM] Future Scheduled 2023-01-30 DIABETIC FOOT EXAM [facility] Test 14:16:00 [code = DIABETIC FOOT EXAM] Future Scheduled 2023-01-30 URINE MICROALBUMIN [facility] Test 14:16:00 [code = URINE MICROALBUMIN] Future Scheduled 2023-01-30 Hepatitis C screening [facility] Test 14:16:00 (procedure) [code = 096991106] Future Scheduled 2023-01-30 Screening for [facility] Test 14:16:00 malignant neoplasm of colon (procedure) [code = 402420942] Future Scheduled 2023-01-30 Scre[facility] for [facility] Test 14:16:00 malignant neoplasm of colon (procedure) [code = 961776542] Future Scheduled 2023-01-30 [facility] Test 14:16:00 malignant neoplasm of lung (procedure) [code = 491382692] Future Scheduled 2023-01-30 SHINGLES VACCINES (1 Met [facility] Test 14:16:00 of 2) [code = SHINGLES VACCINES (1 of 2)] Future Scheduled 2023-01-30 INFLUENZA VACCINE (#1) [facility] Test 14:16:00 [code = INFLUENZA VACCINE (#1)] Future Scheduled 2023-01-30 RSV VACCINES > 60 YR Met [facility] Test 14:16:00 (1 - 1-dose 60+ series) [code = RSV VACCINES > 60 YR (1 - 1-dose 60+ series)] Future Scheduled 2023-01-30 Screening for [facility] Test 14:16:00 malignant neoplasm of colon (procedure) [code = 730043984] Future Scheduled 2023-01-30 Screening for [facility] Test 14:16:00 malignant neoplasm of colon (procedure) [code = 282034691] Future Scheduled 2023-01-30 Screening for [facility] Test 14:16:00 malignant neoplasm of colon (procedure) [code = 999828671] Future Scheduled 2023-01-30 COVID-19 VACCINE (#1) [facility] Test 14:16:00 [code = COVID-19 VACCINE (#1)] Future Scheduled 2023-01-30 DIABETES: RETINAL EYE [facility] Test 14:16:00 EXAM [code = DIABETES: RETINAL EYE EXAM] Future Scheduled 2023-01-30 DIABETIC FOOT EXAM [facility] Test 14:16:00 [code = DIABETIC FOOT EXAM] Future Scheduled 2023-01-30 URINE MICROALBUMIN [facility] Test 14:16:00 [code = URINE MICROALBUMIN] Future Scheduled 2023-01-30 Hepatitis C screening [facility] Test 14:16:00 (procedure) [code = 333206960] Future Scheduled 2023-01-30 Screening for [facility] Test 14:16:00 malignant neoplasm of colon (procedure) [code = 370937129] Future Scheduled 2023-01-30 Screening for [facility] Test 14:16:00 malignant neoplasm of colon (procedure) [code = 916452095] Future Scheduled 2023-01-30 Screening for [facility] Test 14:16:00 malignant neoplasm of lung (procedure) [code = 159105058] Future Scheduled 2023-01-30 SHINGLES VACCINES (1 Met [facility] Test 14:16:00 of 2) [code = SHINGLES VACCINES (1 of 2)] Future Scheduled 2023-01-30 INFLUENZA VACCINE (#1) [facility] Test 14:16:00 [code = INFLUENZA VACCINE (#1)] Future Scheduled 2023-01-30 RSV VACCINES > 60 YR Met [facility] Test 14:16:00 (1 - 1-dose 60+ series) [...] 19 yrs)] Future Scheduled 2023-01-16 Scre[facility] Test 13:17:08 malignant neoplasm of colon (procedure) [code = 450487747] Future Scheduled 2023-01-16 Screening for [facility] Test 13:17:08 malignant neoplasm of colon (procedure) [code = 280551396] Future Scheduled 2023-01-16 Scre[facility] Test 13:17:08 malignant neoplasm of colon (procedure) [code = 881258812] Future Scheduled 2023-01-16 [facility] [code = COVID-19 VACCINE (#1)] Future Scheduled 2023-01-16 DIABETES: RETINAL EYE [facility] Test 13:17:08 EXAM [code = DIABETES: RETINAL EYE EXAM] Future Scheduled 2023-01-16 DIABETIC FOOT EXAM [facility] Test 13:17:08 [code = DIABETIC FOOT EXAM] Future Scheduled 2023-01-16 URINE MICROALBUMIN [facility] Test 13:17:08 [code = URINE MICROALBUMIN] Future Scheduled 2023-01-16 Hepatitis C screening [facility] Test 13:17:08 (procedure) [code = [id number]] Future Scheduled 2023-01-16 [facility] [facility] Test 13:17:08 malignant neoplasm of colon (procedure) [code = 467986609] Future Scheduled 2023-01-16 Screening for [facility] Test 13:17:08 malignant neoplasm of colon (procedure) [code = 162461281] Future Scheduled 2023-01-16 Screening for [facility] Test 13:17:08 malignant neoplasm of lung (procedure) [code = 392906186] Future Scheduled 2023-01-16 SHINGLES VACCINES (1 Met [facility] Test 13:17:08 of 2) [code = SHINGLES VACCINES (1 of 2)] Future Scheduled 2023-01-16 INFLUENZA VACCINE (#1) [facility] Test 13:17:08 [code = INFLUENZA VACCINE (#1)] Future Scheduled 2023-01-16 Screening for [facility] Test 13:17:08 malignant neoplasm of colon (procedure) [code = 834538496] Future Scheduled 2023-01-16 Screening for [facility] Test 13:17:08 malignant neoplasm of colon (procedure) [code = 023363016] Future Scheduled 2023-01-16 Screening for [facility] Test 13:17:08 malignant neoplasm of colon (procedure) [code = 696073148] Future Scheduled 2023-01-16 COVID-19 VACCINE (#1) [facility] Test 13:17:08 [code = COVID-19 VACCINE (#1)] Future Scheduled 2023-01-16 DIABETES: RETINAL EYE [facility] Test 13:17:08 EXAM [code = DIABETES: RETINAL EYE EXAM] Future Scheduled 2023-01-16 DIABETIC FOOT EXAM [facility] Test 13:17:08 [code = DIABETIC FOOT EXAM] Future Scheduled 2023-01-16 URINE MICROALBUMIN [facility] Test 13:17:08 [code = URINE MICROALBUMIN] Future Scheduled 2023-01-16 [facility] 13:17:08 (procedure) [code = 420278315] Future Scheduled 2023-01-16 Screening for [facility] Test 13:17:08 malignant neoplasm of colon (procedure) [code = 284061860] Future Scheduled 2023-01-16 [facility] for [facility] Test 13:17:08 malignant neoplasm of colon (procedure) [code = 328780657] Future Scheduled 2023-01-16 [facility] for [facility] Test 13:17:08 malignant neoplasm of lung (procedure) [code = 192158441] Future Scheduled 2023-01-16 SHINGLES VACCINES (1 [facility] 13:17:08 of 2) [code = SHINGLES VACCINES (1 of 2)] Future Scheduled 2023-01-16 INFLUENZA VACCINE (#[facility]) [facility] 13:17:08 [code = INFLUENZA VACCINE [...] 21 yrs)] Future Scheduled 2022-11-21 Screening for [facility] Test 10:36:19 malignant neoplasm of colon (procedure) [code = 046923961] Future Scheduled 2022-11-21 [facility] for [facility] Test 10:36:19 malignant neoplasm of colon (procedure) [code = 077702800] Future Scheduled 2022-11-21 Scre[facility] for [facility] Test 10:36:19 malignant neoplasm of colon (procedure) [code = 179765711] Future Scheduled 2022-11-21 COVID-19 VACCINE (#1) [facility] 10:36:19 [code = COVID-19 VACCINE (#1)] Future Scheduled 2022-11-21 DIABETES: RETINAL EYE [facility] Test 10:36:19 EXAM [code = DIABETES: RETINAL EYE EXAM] Future Scheduled 2022-11-21 DIABETIC FOOT EXAM [facility] Test 10:36:19 [code = DIABETIC FOOT EXAM] Future Scheduled 2022-11-21 [facility] 10:36:19 [code = URINE MICROALBUMIN] Future Scheduled 2022-11-21 [facility] 10:36:19 (procedure) [code = 303127094] Future Scheduled 2022-11-21 Scre[facility] for [facility] Test 10:36:19 malignant neoplasm of colon (procedure) [code = 081053664] Future Scheduled 2022-11-21 [facility] Test 10:36:19 malignant neoplasm of colon (procedure) [code = 053206180] Future Scheduled 2022-11-21 [facility] Test 10:36:19 malignant neoplasm of lung (procedure) [code = 158429800] Future Scheduled 2022-11-21 SHINGLES VACCINES (1 [facility] 10:36:19 of 2) [code = SHINGLES VACCINES (1 of 2)] Future Scheduled 2022-11-21 [facility]ACCINE [facility] 10:36:19 [code = INFLUENZA VACCINE] Future Scheduled 2022-11-21 Scre[facility] for [facility] Test 10:36:19 malignant neoplasm of colon (procedure) [code = 773079340] Future Scheduled 2022-11-21 [facility] Test 10:36:19 malignant neoplasm of colon (procedure) [code = 563524285] Future Scheduled 2022-11-21 [facility] Test 10:36:19 malignant neoplasm of colon (procedure) [code = 683837551] Future Scheduled 2022-11-21 COVID-19 VACCINE (#1) [facility] 10:36:19 [code = COVID-19 VACCINE (#1)] Future Scheduled 2022-11-21 DIABETES: RETINAL EYE [facility] 10:36:19 EXAM [code = DIABETES: RETINAL EYE EXAM] Future Scheduled 2022-11-21 DIABETIC FOOT EXAM [facility] Test 10:36:19 [code = DIABETIC FOOT EXAM] Future Scheduled 2022-11-21 URINE MICROALBUMIN [facility] Test 10:36:19 [code = URINE MICROALBUMIN] Future Scheduled 2022-11-21 [facility] (procedure) [code = 943248339] Future Scheduled 2022-11-21 [facility] Test 10:36:19 malignant neoplasm of colon (procedure) [code = 376395548] Future Scheduled 2022-11-21 [facility] for [facility] Test 10:36:19 malignant neoplasm of colon (procedure) [code = 027930053] Future Scheduled 2022-11-21 [facility] Test 10:36:19 malignant neoplasm of lung (procedure) [code = 057232065] Future Scheduled 2022-11-21 SHINGLES VACCINES (1 [facility] 10:36:19 of 2) [code = SHINGLES VACCINES (1 of 2)] Future Scheduled 2022-11-21 INFLUENZA VACCINE [facility] 10:36:19 [code = INFLUENZA VACCINE] Future Scheduled 2022-11-21 [facility] Test 10:36:19 malignant neoplasm of colon (procedure) [code = 110709448] Future Scheduled 2022-11-21 [facility] Test 10:36:19 malignant neoplasm of colon (procedure) [code = 707816929] Future Scheduled 2022-11-21 [facility] Test 10:36:19 malignant neoplasm of colon (procedure) [code = 640175088] Future Scheduled 2022-11-21 [facility] 10:36:19 [code = COVID-19 VACCINE (#1)] Future Scheduled 2022-11-21 DIABETES: RETINAL EYE [facility] 10:36:19 EXAM [code = DIABETES: RETINAL EYE EXAM] Future Scheduled 2022-11-21 DIABETIC FOOT EXAM [facility] Test 10:36:19 [code = DIABETIC FOOT EXAM] Future Scheduled 2022-11-21 [facility] 10:36:19 [code = URINE MICROALBUMIN] Future Scheduled 2022-11-21 [facility] 10:36:19 (procedure) [code = 119257584] Future Scheduled 2022-11-21 [facility] for [facility] Test 10:36:19 malignant neoplasm of colon (procedure) [code = 447948635] Future Scheduled 2022-11-21 [facility] Test 10:36:19 malignant neoplasm of colon (procedure) [code = 537156451] Future Scheduled 2022-11-21 [facility] Test 10:36:19 malignant neoplasm of lung (procedure) [code = 738629264] Future Scheduled 2022-11-21 SHINGLES VACCINES (1 [facility] 10:36:19 of 2) [code = SHINGLES VACCINES (1 of 2)] Future Scheduled 2022-11-21 ZZZ [facility] 10:36:19 [code = ZZZ INFLUENZA VACCINE] Future Scheduled 2022-10-10 Scre[facility] Test 14:06:50 malignant neoplasm of colon (procedure) [code = 386668169] Future Scheduled 2022-10-10 [facility] Test 14:06:50 malignant neoplasm of colon (procedure) [code = 889833880] Future Scheduled 2022-10-10 [facility] Test 14:06:50 malignant neoplasm of colon (procedure) [code = 740549469] Future Scheduled 2022-10-10 COVID-19 VACCINE (#1) [facility] Test 14:06:50 [code = COVID-19 VACCINE (#1)] Future Scheduled 2022-10-10 [facility] 14:06:50 EXAM [code = DIABETES: RETINAL EYE EXAM] Future Scheduled 2022-10-10 [facility] 14:06:50 [code = DIABETIC FOOT EXAM] Future Scheduled 2022-10-10 [facility] 14:06:50 [code = URINE MICROALBUMIN] Future Scheduled 2022-10-10 Hepatitis C screening [facility] Test 14:06:50 (procedure) [code = 978746609] Future Scheduled 2022-10-10 Scre[facility] for [facility] Test 14:06:50 malignant neoplasm of colon (procedure) [code = 062504796] Future Scheduled 2022-10-10 [facility] Test 14:06:50 malignant neoplasm of colon (procedure) [code = 954070610] Future Scheduled 2022-10-10 [facility] Test 14:06:50 malignant neoplasm of lung (procedure) [code = 848926683] Future Scheduled 2022-10-10 SHINGLES VACCINES (1 [facility] 14:06:50 of 2) [code = SHINGLES VACCINES (1 of 2)] Future Scheduled 2022-10-10 INFLUENZA VACCINE [facility] 14:06:50 [code = INFLUENZA VACCINE] Future Scheduled 2022-09-26 Scre[facility] for [facility] Test 01:58:19 malignant neoplasm of colon (procedure) [code = 655296521] Future Scheduled 2022-09-26 [facility] Test 01:58:19 malignant neoplasm of colon (procedure) [code = 342180836] Future Scheduled 2022-09-26 [facility] Test 01:58:19 malignant neoplasm of colon (procedure) [code = 832498026] Future Scheduled 2022-09-26 COVID-19 VACCINE (#1) [facility] Test 01:58:19 [code = COVID-19 VACCINE (#1)] Future Scheduled 2022-09-26 DIABETES: RETINAL EYE [facility] Test 01:58:19 EXAM [code = DIABETES: RETINAL EYE EXAM] Future Scheduled 2022-09-26 [facility] Test 01:58:19 [code = DIABETIC FOOT EXAM] Future Scheduled 2022-09-26 [facility] Test 01:58:19 [code = URINE MICROALBUMIN] Future Scheduled 2022-09-26 [facility]:19 (procedure) [code = 260531504] Future Scheduled 2022-09-26 Scre[facility] Test 01:58:19 malignant neoplasm of colon (procedure) [code = 708276147] Future Scheduled 2022-09-26 [facility] Test 01:58:19 malignant neoplasm of colon (procedure) [code = 530125460] Future Scheduled 2022-09-26 [facility] Test 01:58:19 malignant neoplasm of lung (procedure) [code = 565047324] Future Scheduled 2022-09-26 [facility]IN[facility] 01:58:19 of 2) [code = SHINGLES VACCINES (1 of 2)] Future Scheduled 2022-09-26 INFLUENZA VACCINE [facility] 01:58:19 [code = INFLUENZA VACCINE] Future Scheduled 2022-09-19 COVID-19 VACCINE (#1) [facility] 11:07:21 [code = COVID-19 VACCINE (#1)] Future Scheduled 2022-09-19 [facility] 11:07:21 EXAM [code = DIABETES: RETINAL EYE EXAM] Future Scheduled 2022-09-19 DIABETIC FOOT EXAM [facility] Test 11:07:21 [code = DIABETIC FOOT EXAM] Future Scheduled 2022-09-19 URINE [facility]ALBUMIN [facility] Test 11:07:21 [code = URINE MICROALBUMIN] Future Scheduled 2022-09-19 Hepatitis C screening [facility] Test 11:07:21 (procedure) [code = 281285463] Future Scheduled 2022-09-19 Scre[facility] for [facility] Test 11:07:21 malignant neoplasm of colon (procedure) [code = 840572071] Future Scheduled 2022-09-19 [facility] Test 11:07:21 malignant neoplasm of lung (procedure) [code = 300804749] Future Scheduled 2022-09-19 SHINGLES VACCINES (1 Met [facility] Test 11:07:21 of 2) [code = SHINGLES VACCINES (1 of 2)] Future Scheduled 2022-09-19 INFLUENZA VACCINE [facility] 11:07:21 [code = INFLUENZA VACCINE] Future Scheduled 2022-08-19 [facility] 10:24:38 [code = COVID-19 VACCINE [...] [facility] Test 10:24:38 (procedure) [code = 232393037] Future Scheduled 2022-08-19 [facility] 10:24:38 [code = COLONOSCOPY SCREENING] Future Scheduled 2022-08-19 [facility] Test 10:24:38 malignant neoplasm of lung (procedure) [code = 095751933] Future Scheduled 2022-08-19 SHINGLES VACCINES (1 [facility] 10:24:38 of 2) [code = SHINGLES VACCINES (1 of 2)] Future Scheduled 2022-08-19 INFLUENZA VACCINE [facility] 10:24:38 [code = INFLUENZA VACCINE] Future Scheduled 2022-08-19 COVID-19 VACCINE (#1) [facility] 10:24:38 [code = COVID-19 VACCINE (#1)] Future Scheduled 2022-08-19 DIABETES: RETINAL EYE [facility] Test 10:24:38 EXAM [code = DIABETES: RETINAL EYE EXAM] Future Scheduled 2022-08-19 [facility] 10:24:38 [code = DIABETIC FOOT EXAM] Future Scheduled 2022-08-19 [facility] 10:24:38 [code = URINE MICROALBUMIN] Future Scheduled 2022-08-19 [facility] 10:24:38 (procedure) [code = 946776332] Future Scheduled 2022-08-19 COLONOSCOPY SCREENING [facility] Test 10:24:38 [code = COLONOSCOPY SCREENING] Future Scheduled 2022-08-19 [facility] Test 10:24:38 malignant neoplasm of lung (procedure) [code = 756888090] Future Scheduled 2022-08-19 SHINGLES VACCINES (1 [facility] 10:24:38 of 2) [code = [...] FOOT EXAM] Future Scheduled 2022-08-19 [facility] 10:24:38 [code = URINE MICROALBUMIN] Future Scheduled 2022-08-19 [facility] 10:24:38 (procedure) [code = 022839679] Future Scheduled 2022-08-19 [facility] 10:24:38 [code = COLONOSCOPY SCREENING] Future Scheduled 2022-08-19 [facility] Test 10:24:38 malignant neoplasm of lung (procedure) [code = 910887746] Future Scheduled 2022-08-19 SHINGLES VACCINES (1 [facility] 10:24:38 of 2) [code = SHINGLES VACCINES (1 of 2)] Future Scheduled 2022-08-19 INFLUENZA VACCINE [facility] 10:24:38 [code = INFLUENZA VACCINE] Future Scheduled 2022-08-19 COVID-19 [facility] (#[facility] 10:24:38 [code = COVID-19 VACCINE (#1)] Future Scheduled 2022-08-19 DIABETES: RETINAL EYE [facility] Test 10:24:38 EXAM [code = DIABETES: RETINAL EYE EXAM] Future Scheduled 2022-08-19 [facility] 10:24:38 [code = DIABETIC FOOT EXAM] Future Scheduled 2022-08-19 [facility] 10:24:38 [code = URINE MICROALBUMIN] Future Scheduled 2022-08-19 [facility] 10:24:38 (procedure) [code = 980338859] Future Scheduled 2022-08-19 COLONOSCOPY SCREENING [facility] Test 10:24:38 [code = COLONOSCOPY SCREENING] Future Scheduled 2022-08-19 [facility] 10:24:38 malignant neoplasm of lung (procedure) [code = 324062968] Future Scheduled 2022-08-19 SHINGLES VACCINES (1 [facility] 10:24:38 of 2) [code = SHINGLES VACCINES (1 of 2)] Future Scheduled 2022-08-19 INFLUENZA VACCINE [facility] Test 10:24:38 [code = INFLUENZA VACCINE] Future Scheduled 2022-01-19 IMM Influenza Seasonal [facility] 00:00:00 (>/= 19 yrs) [code = IMM Influenza Seasonal (>/= 19 yrs)] Future Scheduled 2022-01-19 IMM Influenza Seasonal [facility] Test 00:00:00 (>/= 19 yrs) [code = IMM Influenza Seasonal (>/= 19 yrs)] Future Scheduled 2021-12-17 HEPATITIS B VACCINES Met [facility] Test 10:00:08 (1 of 3 - 3-dose series) [code = HEPATITIS B VACCINES (1 of 3 - 3-dose series)] Future Scheduled 2021-12-17 COVID-19 VACCINE (#1) [facility] Test 10:00:08 [code = COVID-19 VACCINE (#1)] Future Scheduled 2021-12-17 Pneumococcal Vaccine: [facility] Test 10:00:08 Pediatrics (0 to 5 Years) and At-Risk Patients (6 to 64 Years) (1 - PCV) [code = Pneumococcal Vaccine: Pediatrics (0 to 5 Years) and At-Risk Patients (6 to 64 Years) (1 - PCV)] Future Scheduled 2021-12-17 Hepatitis C screening [facility] Test 10:00:08 (procedure) [code = 543807008] Future Scheduled 2021-12-17 COLONOSCOPY SCREENING [facility] Test 10:00:08 [code = COLONOSCOPY SCREENING] Future Scheduled 2021-12-17 SHINGLES VACCINES (1 Met [facility] Test 10:00:08 of 2) [code = SHINGLES VACCINES (1 of 2)] Future Scheduled 2021-12-17 INFLUENZA VACCINE Method [facility] Test 10:00:08 [code = INFLUENZA VACCINE] Future Scheduled 2021-12-17 HEPATITIS B VACCINES Met [facility] Test 10:00:08 (1 of 3 - 3-dose series) [code = HEPATITIS B VACCINES (1 of 3 - 3-dose series)] Future Scheduled 2021-12-17 COVID-19 VACCINE (#1) [facility] Test 10:00:08 [code = COVID-19 VACCINE (#1)] Future Scheduled 2021-12-17 Pneumococcal Vaccine: [facility] Test 10:00:08 Pediatrics (0 to 5 Years) and At-Risk Patients (6 to 64 Years) (1 - PCV) [code = Pneumococcal Vaccine: Pediatrics (0 to 5 Years) and At-Risk Patients (6 to 64 Years) (1 - PCV)] Future Scheduled 2021-12-17 Hepatitis C screening [facility] Test 10:00:08 (procedure) [code = 981679024] Future Scheduled 2021-12-17 COLONOSCOPY SCREENING [facility] Test 10:00:08 [code = COLONOSCOPY SCREENING] Future Scheduled 2021-12-17 SHINGLES VACCINES (1 Met [facility] Test 10:00:08 of 2) [code = SHINGLES VACCINES (1 of 2)] Future Scheduled 2021-12-17 INFLUENZA VACCINE Method [facility] Test 10:00:08 [code = INFLUENZA VACCINE] Diagnostic Test 2021-06-29 HEMOGLOBIN GLYCLATED Pending 14:06:03 (HGB A1C) (99984) [code = 85444] Diagnostic Test 2021-06-29 CBC & PLATELETS (AUTO) Pending 14:05:14 (04548) [code = 01560] Diagnostic Test 2021-06-29 MICROALBUMIN/CREAT. Pending 13:35:45 RATIO WITH CREATININE (ALONDRA URINE) (69064) [code = 70454] Diagnostic Test 2021-06-29 LIPID PANEL (83940) Pending 13:35:39 [code = 53001] Diagnostic Test 2021-06-29 COMPREHENSIVE Pending 13:35:39 METABOLIC PANEL (36372) [code = 37154] Future Scheduled [facility] 00:[facility]:00 malignant neoplasm of colon (procedure) [code = 852378823] Future Scheduled 2017 [facility] 00:00:00 malignant neoplasm of colon (procedure) [code = 055592055] Future Scheduled 2017 [facility] 00:00:00 malignant neoplasm of colon (procedure) [code = 006818724] Future Scheduled 2017 [facility] 00:00:00 malignant neoplasm of colon (procedure) [code = 683757802] Future Scheduled 2017 [facility] 00:00:00 malignant neoplasm of colon (procedure) [code = 341602932] Future Scheduled 2017 [facility] 00:00:00 malignant neoplasm of colon (procedure) [code = 763277344] Future Scheduled 2017 [facility] 00:00:00 malignant neoplasm of colon (procedure) [code = 255223806] Future Scheduled 2017 [facility] 00:00:00 malignant neoplasm of colon (procedure) [code = 115464526] Future Scheduled 2017 [facility] 00:00:00 malignant neoplasm of colon (procedure) [code = 768494990] Future Scheduled 2017 [facility] 00:00:00 malignant neoplasm of colon (procedure) [code = 904755507] Future Scheduled 2017 [facility] 00:00:00 malignant neoplasm of colon (procedure) [code = 554388154] Future Scheduled 2017 [facility] 00:00:00 malignant neoplasm of colon (procedure) [code = 734178050] Future Scheduled 2017 [facility] 00:00:00 malignant neoplasm of colon (procedure) [code = 245423266] Future Scheduled 2017 [facility] 00:00:00 malignant neoplasm of colon (procedure) [code = 659612617] Future Scheduled 2017 [facility] 00:00:00 malignant neoplasm of colon (procedure) [code = 168257408] Future Scheduled 2017 [facility] 00:00:00 malignant neoplasm of colon (procedure) [code = 900376624] Future Scheduled 1985 Diabetic foot [facility] Test 00:00:00 examination (regime/therapy) [code = 971882957] Future Scheduled 1985 [facility] 00:00:00 protein (procedure) [code = 819660941] Future Scheduled 1985 DM Retinal Exam [facility] 00:00:00 (Yearly) [code = DM Retinal Exam (Yearly)] Future Scheduled 1985 [facility] 00:00:00 examination (regime/therapy) [code = 930337856] Future Scheduled 1985 [facility] 00:00:00 protein (procedure) [code = 064949513] Future Scheduled 1985 [facility] 00:00:00 (Yearly) [code = DM Retinal Exam (Yearly)] Future Scheduled 1985 [facility] 00:00:00 examination (regime/therapy) [code = 618850904] Future Scheduled 1985 [facility] 00:00:00 protein (procedure) [code = 712522201] Future Scheduled 1985 DM [facility] 00:00:00 (Yearly) [code = DM Retinal Exam (Yearly)] Future Scheduled 1985 [facility] 00:00:00 examination (regime/therapy) [code = 303714638] Future Scheduled 1985 [facility] 00:00:00 protein (procedure) [code = 162183109] Future Scheduled 1985 DM [facility] 00:00:00 (Yearly) [code = DM Retinal Exam (Yearly)] Future Scheduled 1985 [facility] 00:00:00 examination (regime/therapy) [code = 056572149] Future Scheduled 1985 [facility] 00:00:00 protein (procedure) [code = 518417532] Future Scheduled 1985 DM [facility] 00:00:00 (Yearly) [code = DM Retinal Exam (Yearly)] Future Scheduled 1985 [facility] 00:00:00 examination (regime/therapy) [code = 409542716] Future Scheduled 1985 [facility] 00:00:00 protein (procedure) [code = 959521440] Future Scheduled 1985 DM [facility] 00:00:00 (Yearly) [code = DM Retinal Exam (Yearly)] Future Scheduled 1985 [facility] 00:00:00 examination (regime/therapy) [code = 609403688] Future Scheduled 1985 [facility] 00:00:00 protein (procedure) [code = 321505536] Future Scheduled 1985 DM [facility] 00:00:00 (Yearly) [code = DM Retinal Exam (Yearly)] Future Scheduled 1985 [facility] 00:00:00 examination (regime/therapy) [code = 404803450] Future Scheduled 1985 [facility] 00:00:00 protein (procedure) [code = 566385542] Future Scheduled 1985 DM [facility] 00:00:00 (Yearly) [code = DM Retinal Exam (Yearly)] Future Scheduled 1985 DM Foot Exam (Yearly) [facility] 00:00:00 [code = DM Foot Exam (Yearly)] Future Scheduled 1985 [facility] 00:00:00 protein (procedure) [code = 599407910] Future Scheduled 1985 [facility] 00:00:00 (Yearly) [code = DM Retinal Exam (Yearly)] Future Scheduled 1985 DM Foot Exam (Yearly) [facility] 00:00:00 [code = DM Foot Exam (Yearly)] Future Scheduled 1985 Urine screening for [facility] 00:00:00 protein (procedure) [code = 341886318] Future Scheduled 1985 DM Retinal Exam [facility] 00:[facility]:00 (Yearly) [code = DM Retinal Exam (Yearly)] Future Scheduled 1985 Di[facility] foot [facility]00 examination (regime/therapy) [code = 935202076] Future Scheduled 1985 Urine screening for [facility] 00:00:00 protein (procedure) [code = 593214392] Future Scheduled 1985 DM [facility]inal [facility] 00:00:00 (Yearly) [code = DM Retinal Exam (Yearly)] Future Scheduled 1985 [facility] 00:[facility]:00 examination (regime/therapy) [code = 220699512] Future Scheduled 1985 Urine screening for [facility] 00:00:00 protein (procedure) [code = 248600974] Future Scheduled 1985 DM [facility] 00:00:00 (Yearly) [code = DM Retinal Exam (Yearly)] Future Scheduled 1985 [facility] 00:[facility]:00 examination (regime/therapy) [code = 345623744] Future Scheduled 1985 Urine [facility] 00:00:00 protein (procedure) [code = 759394511] Future Scheduled 1985 DM [facility]inal Exam [facility] 00:00:00 (Yearly) [code = DM Retinal Exam (Yearly)] Future Scheduled 1985 [facility] 00:[facility]:00 examination (regime/therapy) [code = 137143393] Future Scheduled 1985 Urine [facility] for [facility] 00:00:00 protein (procedure) [code = 612621651] Future Scheduled 1985 DM [facility]inal [facility]am [facility] 00:00:00 (Yearly) [code = DM Retinal Exam (Yearly)] Future Scheduled 1985 [facility] 00:[facility]:00 examination (regime/therapy) [code = 465335892] Future Scheduled 1985 Urine [facility] for [facility] 00:00:00 protein (procedure) [code = 427841850] Future Scheduled 1985 DM [facility]inal Exam [facility] 00:00:00 (Yearly) [code = DM Retinal Exam (Yearly)] Future Scheduled 1985 [facility]:00 examination (regime/therapy) [code = 516601608] Future Scheduled 1985 Urine [facility] for [facility] 00:00:00 protein (procedure) [code = 851880224] Future Scheduled 1985 DM Retinal Exam [facility] Test 00:00:00 measurement (procedure) [code = 16111305] Future Scheduled 1967 Hemoglobin A1c [facility] 00:[facility]:00 measurement (procedure) [code = 70846818] Future Scheduled 1967 Hemoglobin A1c [facility] 00:00:00 measurement (procedure) [code = 68908306] Future Scheduled 1967 Hemoglobin A1c [facility] 00:00:00 measurement (procedure) [code = 46407867] Future Scheduled 1967 Hemoglobin A1c [facility] 00:00:00 measurement (procedure) [code = 70422403] Future Scheduled 1967 Hemoglobin A1c [facility] 00:00:00 measurement (procedure) [code = 65499779] Future Scheduled 1967 Hemoglobin A1c [facility] 00:00:00 measurement (procedure) [code = 00628901] Future Scheduled 1967 Hemoglobin A1c [facility] 00:00:00 measurement (procedure) [code = 08530669] Future Scheduled 1967 Hemoglobin A1c [facility] 00:00:00 measurement (procedure) [code = 29268321] Future Scheduled 1967 Fluoride Varnish [code [facility] 00:00:00 = Fluoride Varnish] Future Scheduled 1967 Hemoglobin A1c [facility] 00:00:00 measurement (procedure) [code = 17086307] Future Scheduled 1967 Fluoride Varnish [code [facility] 00:00:00 = Fluoride Varnish] Future Scheduled 1967 Hemoglobin A1c [facility] 00:00:00 measurement (procedure) [code = 30841260] Future Scheduled 1967 Hemoglobin A1c [facility] 00:00:00 measurement (procedure) [code = 35577921] Future Scheduled 1967 Hemoglobin A1c [facility] 00:00:00 measurement (procedure) [code = 56804241] Future Scheduled 1967 Hemoglobin A1c [facility] 00:00:00 measurement (procedure) [code = 88223081] Future Scheduled 1967 Hemoglobin A1c [facility] 00:00:00 measurement (procedure) [code = 60347169] Future Scheduled 1967 Hemoglobin A1c [facility] 00:00:00 measurement (procedure) [code = 23253034] Encounters Start End Encounter Admission Attending Care Care Encounter Source Date/Time Date/Time Type Type Clinicians Facility Department ID 2023-03-07 Outpatient [id number] DE60 F85F-9 Memoria 19:55:15 4U3R-97NQ 9A-47CB-BC5 F2X-96UA- B l -NY70-524 1-706B482QF H73-457G06 Guille K586IRH05 F48 9BEF48 2023-02-12 Outpatient [id number]- 82JW5Y8A-63 43EF 7B2F-4 [facility] 22:01:43 44BE-4579 BE-4579-A60 4BE-4579- A l -P510-927 2-695F5MN15 602-497A6C Guille [id number] 336 G42640 2023-02-09 Outpatient 27885IMY- 81195DEX-62 2687 6FCD-4 [facility] 20:15:19 4835-4F5F 35-5M0F-X8J 835-4F5F- A l -D0O1-974 1-457BLE388 5Q5-053CXD Guille GDJ479J8O F2D 672F2D 2023-01-29 Outpatient [id number]- 0QL2789V-9L 7DB8 866E-7 [facility] 20:52:41 6C99-4339 23-4935-926 O94-9017- 9 l -9266-D99 6-G34424456 266-E34862 Guille [id number] 076 633695 9581-10-07 Outpatient 1AS2QYS3- 6AS9GBS4-4X 2CD8 DFC8-8 [facility] 14:44:43 7TF0-511M F6-482A-BC2 FF6-482A- B l -BI81-L93 8-Z9209Y408 C72-N0779M Guille 99Y419Q25 C24 728C24 2022-12-13 Outpatient [id number]- [id number]-WF D848 53FB-E [facility] 14:44:37 RJ6N-0281 8A-4711-9E7 L7C-8203- 9 l -7U3G-MXC B-UCD07W890 T0Y-XDB69J Guille 83A24655Y 53C 70239H 2022-12-10 Outpatient [id number]- 8J1200ZL-50 4A22 92EF-6 [facility] 22:20:45 06K4-933C E6-428F-910 3F1-564M- 9 l -9100-AED 0-UOA572451 100-VSC418 Guille 046190C54 D82 616D82 2022-12-05 Outpatient [id number]- S4I844XF-57 B9E6 20FB-3 [facility] 00:38:36 55X5-238I B8-416D-815 4V7-942K- 8 l -8153-A18 3-R84N69X2N 153-A18A09 Guille D94C8IX32 C76 B5BC76 2022-10-14 Outpatient S1388W07- Y6537E49-4V A598 2A76-1 [facility]oria 00:41:12 6SJ8-4F7L B3-1F5M-88E BB3-4D6D- 9 l -41T1-427 5-819OL9252 2L5-370SF6 Guille GR1621CFU CBB 615CBB 2022-09-26 Outpatient 5HXK1D86- 2BWC3H43-PA 8BAA 2C28-B [facility] 22:55:52 BDD8-45A9 D8-48D6-J54 DD8-45A9- A l -O84Z-207 C-7166T1T2O 65C-0738A6 Guille 1M9F1P4LE 9CA A9E9CA 2022-09-23 Outpatient 3Y2E7505- 2C3K8912-54 9A1A 7215-2 [facility]oria 15:40:06 94H1-2735 D4-4114-817 4Q9-3477- 8 l -8170-0E7 0-5X98926K5 170-0Y9763 Guille 5402P18H7 1C5 7F51C5 2022-09-18 Outpatient D15QNY12- U07RVG48-30 B36D ED90-5 [facility] 10:27:41 541D-469D 1D-469D-BD0 41D-469D- B l -NZ94-27C 8-36L1TB011 O36-23Y8HG Guille 2NZ80889U 07A 20876Y 2022-09-05 Outpatient 43763WO7- 68495DJ3-52 2321 5DA0-4 [facility] 19:47:40 4550-4F68 50-7K97-6IK 550-4F68- 9 l -5BQ3-F39 8-D673H5DA1 EF8-C365D8 Guille 5F2VO8Y89 C31 EA8C31 2022-08-22 Outpatient 075BJ8YL- 458HL9LJ-TZ 040A D3FD-E [facility] 13:17:42 EEDC-4D67 DC-9D62-T9C EDC-4D67- B l -P0C4-RD4 8-YX9871223 4P9-RE8239 Guille [id number] 901 095442 0634-05-01 [facility] 35733U65- 24674R39-G8 2664 7F96-A Memoria 10:26:06 R5K2-6X21 D0-6G15-WA3 1W8-1B56- B l -WS6E-F90 D-K55T050V4 Y2I-E42T45 Guille R354B8659 284 9W5427 2022-07-01 Outpatient 61EH44F7- 72VV84G6-5Z 52CB 02A8-1 [facility]oria 18:22:57 9M00-7D7U 86-2K8D-J0O L14-1W6L- A l -L3XE-503 F-496O266DX 7DF-972C65 Guille N127YZ230 841 1YS365 2022-06-25 Outpatient R691WX8I- Z796YR6Z-75 C555 AD3A-6 [facility] 13:13:28 6801-408F 01-408F-9CD 801-408F- 9 l -8VY5-5S2 5-6U91S6726 CD5-9B11D0 Guille 1O6972NBA CAF 333CAF 2022-06-21 Outpatient [id number]- 136498OL-54 2314 01CA-8 [facility]oria 16:24:21 8273-427F 73-427F-927 273-427F- 9 l -9279-910 9-8191769IB 279-183783 Guille 5506AN00O 00D 8DD00D 2022-05-10 Outpatient 5P0HB550- 9Z6ZT393-Y1 2E9D D710-A [facility] 06:40:42 R06Y-31K5 5F-33P9-65C 65F-48A2- 9 l -80L1-8N7 9-4B742RMOZ 0W9-0K558F Guille 34ROIW494 329 YLJ818 2022-05-08 Outpatient PLP8TCS7- VIH3ZQD9-66 BEF6 CBA3-5 [facility] 15:37:53 503B-4880 3B-4880-9B6 03B-4880- 9 l -5N7O-7CK D-8XAK87085 F4D-9MJQ84 Guille M82621X40 C18 509C18 2022-04-19 Outpatient 8KMG9R4I- 7IUQ4U4K-33 1BBB 5C0D-8 Memoria 13:59:31 06A6-3367 F1-4973-998 4D5-2852- 9 l -998B-F76 B-M75593436 98B-Q17845 Guille [id number] 327 704362 1232-12-28 Outpatient 11JWO70A- 47HYO16C-XK 79BE F91E-D Mem[facility] 13:31:43 DAD3-4873 D3-4873-877 AD3-4873- 8 l -8771-2E6 1-6D4A834N7 771-2E6E91 Guille Q230I5862 342 3A1693 2022-04-13 Outpatient 8599K8T6- 7868L7U9-81 4505 A0B3-1 Memoria 15:36:01 15FB-4C6B FB-6Q7L-X73 5FB-4C6B- A l -P04T-Q45 B-T43T2O087 59B-D42D0C Guille B8C267M4T A6F 833A6F 2022-04-12 Outpatient 73T3YUS4- 34G3PJM5-3F 06B9 BCB5-0 Memoria 15:30:39 3Y42-5VX6 07-0ZU8-650 W33-0OE3- 9 l -9202-AD6 2-SM25J75FM 202-AD61D6 Guille 4G40MLV21 A84 7EAA84 2022-03-11 Outpatient 780V5XS8- 733W6KN9-67 938D 5EE5-8 Memoria 19:30:21 857A-4A82 7A-2D71-L5M 57A-4A82- B l -K4J4-3P1 5-2R36710RI 3U6-1W1465 Guille 1837OY583 155 8FW395 2022-03-08 Outpatient [id number]- 6M058645-64 3A45 0898-9 [facility]oria 21:44:29 9339-4C22 39-3Y13-Z46 339-4C22- A l -X48Q-88P E-14Q64LFAB 45E-85D07A Guille 38CWZJ476 545 TKD028 2022-01-04 Outpatient 6XWB8HSO- 4RIY7KIM-8K 9DDA 6CAA-4 [facility] 07:00:32 3B10-0189 77-4012-BA3 T62-0336- B l -MQ07-A52 9-B13JZVYX6 C48-U70JNF Guille VRWIJ8PZ9 CD2 AD3CD2 2021-12-31 Outpatient [id number]- 378132F2-C9 3447 38E1-B Memoria 12:10:15 O4L9-547J E1-485D-91D 2Z5-110N- 9 l -86G2-K63 2-J91936355 6A4-B57678 [place] 049971XP7 AC5 327AC5 2021-10-07 Inpatient ELEANOR RoaBM HCABM [id number] [facility] 06:58:00 Jerry [id number] [facility] 2021-07-14 [facility] [id number] [place] 04:59:20 [id number] [facility] 2021-06-28 Outpatient [facility] [id number] [place] 15:37:52 778008 [facility] 2021-06-15 [facility] [id number] [place] 11:20:44 [id number] [facility] 2021-03-30 Outpatient 2480DU81- 6257ME35-5O 9110 FB25-7 Memoria 23:09:22 8P22-624K 85-469A-9A5 V80-764K- 9 l -9U1H-I42 B-R6632V305 Q5S-X5114E Guille 73O906U31 B38 918B38 2020-06-30 Inpatient HCAKW HCAKW [id number] [facility] 09:04:59 17 [facility] 2020-02-27 Inpatient HCACR AMA [id number] [facility] 13:37:00 01 [facility] 2019-10-08 Inpatient HCABM NCER [id number] [facility] 12:23:00 18 [facility] 2023-02-18 2023-02-18 Outpatient Karol ZEPEDA [facility] [id number] Univers 13:00:00 13:00:00 SENDIL [facility] 2023-02-14 2023-02-14 Outpatient GERMAN MCDOWELL [facility] [id number] Univers 12:00:00 12:00:00 GERMAN MCGEE [facility] 2023-01-30 2023-01-30 Outpatient Karol ZEPEDA [facility] [id number] Univers 14:30:00 14:30:00 SENDIL [facility] 2023-01-07 2023-01-07 [facility] 1.2.724.297 [id number] Univers 00:00:00 00:00:00 Alexandra CHAMBERS 350.1.13.10 i [place] [phone] Nd dical NAL 044 [facility] 2022-12-30 2022-12-30 Outpatient R THOMAS [facility] [id number] Univers 15:00:00 15:00:00 BLANCA ity [facility] 2022-12-24 2022-12-24 Orders Doctor LIBERTY 1.2.840.114 [id number] Univers 00:00:00 00:00:00 Only Unassigned, BRANDEE 350.1.13.10 [facility] 4.2.7.2.686 Suhas as [phone] [address] 2022-12-17 2022-12-17 Outpatient R DAJA [facility] [id number] Univers 08:30:00 08:30:00 [facility] 2022-12-16 2022-12-16 Blood Bank Specialist 2, Adc Lab [facility] 1.2.840.114 [id number] Univers 13:45:00 14:27:13 Visit Alexandra Finnegan 350.1.13.10 ity [facility] [place] [phone] Nd dical NAL 353 [facility] 2022-12-16 2022-12-16 Outpatient R KAIN [facility] [id number] Univers 13:00:00 13:41:28 ALEXANDRA itgrant [facility] 2022-12-16 2022-12-16 Office Kain [facility] 1.2.840.114 [id number] Univers 13:00:00 13:41:28 Visit Alexandra CHAMBERS 350.1.13.10 i ty [facility] 4[place]2.[place].2.[place] [phone] Nd dical NAL 044 [facility] 2022-12-13 2022-12-13 [facility] [id number] Univers 11:30:00 11:30:00 ALEXANDRARACHEL espana [facility] 2022-12-11 2022-12-11 Telephone Thomas [facility] 1.2.840.114 [id number] Univers 00:00:00 00:00:00 Blanca MULTISPEC 350.1.13.10 [place] [phone] [facility] AND CHANA [address] [facility] 2022-12-10 2022-12-10 Outpatient R RENEE [facility] [id number] Univers 16:00:00 16:00:00 LEIGHTON JEFFERSON it y of [facility] 2022-12-05 2022-12-05 Boo Finnegan [facility] 1.2.840.114 [id number] Univers 00:00:00 00:00:00 Alexandra [facility] 350.1.13.10 it y of [place] 4.2.7.2.686 Suhas as ИРИНА?BLEA [phone] [address] 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 [facility]ILDING 2022-12-03 2022-12-03 Outpatient R DAJA [facility] [id number] Univers 08:00:00 08:00:00 JENI ity of [facility] 2022-11-14 2022-11-14 [facility]phone [facility] 1.2.840.114 [id number] Univers 00:00:00 00:00:00 Ramón [place] 350.1.13.10 ity of [place] [facility] [phone] [address] 2022-11-08 2022-11-08 Orders Doctor LIBERTY 1.2.840.114 [id number] Univers 00:00:00 00:00:00 Only Unassigned, BRANDEE 350.1.13.10 [place] [facility] 4.2.7.2.686 Suhas as [phone] [facility] [address] 2022-11-06 2022-11-06 Office [facility] 1.2.840.114 [id number] Univers 14:30:00 14:40:59 Visit [facility]ili[facility] 350.1.13.10 [place] [id number] [address] 2022-11-06 2022-11-06 Office [facility] 1.2.840.114 [id number] Univers 13:30:00 14:39:47 Visit Ramón CHAMBERS 350.1.13.10 ity of [place] [phone] Nd dical NAL 044 [facility] 2022-11-06 2022-11-06 Outpatient R RAMÓN KRAFT [facility] [id number] Univers 13:30:00 14:39:47 [facility]NALADIReji [facility] 2022-10-21 2022-10-21 Outpatient R MORENITA [facility] [id number] Univers 13:30:00 13:30:00 PATRICK [facility] 2022-10-16 2022-10-16 [facility]ill [facility] 1.2.840.114 [id number] Univers 00:00:00 00:00:00 Alexandra CHAMBERS 350.1.13.10 i ty [place] [phone] Nd dical NAL 044 [facility] 2022-10-11 2022-10-11 Outpatient R LEIA [facility] [id number] Univers 08:00:00 08:00:00 RUIQING ity [facility] 2022-10-02 2022-10-02 [facility]phone [facility] 1.2.771.759 [id number] Univers 00:00:00 00:00:00 Alexandra CHAMBERS 350.1.13.10 i ty [place] [phone] Nd dical NAL 231 [facility] 2022-09-25 2022-09-25 Orders Doctor KOENIG 1.2.840.114 [id number] Univers 00:00:00 00:00:00 Only Unassigned, BRANDEE 350.1.13.10 [place] [facility] 4.2.7.2.686 Suhas as [phone] [address] 2022-09-20 2022-09-20 [facility] [id number] Univers 13:00:00 13:00:00 JENI ity [facility] 2022-09-18 2022-09-18 [facility]phone [facility] 1.2.384.766 [id number] Univers 00:00:00 00:00:00 Alexandra [place] 350.1.13.10 i ty [place] [phone] Nd dical NAL [address] [place] [address] 2022-09-18 2022-09-18 Telephone [facility] 1.2.349.090 [id number] Univers 00:00:00 00:00:00 Alexandra [place] 350.1.13.10 i ty [place] [phone] Nd dical NAL [address] [place] [address] 2022-09-17 2022-09-17 [facility] 1.2.840.114 [id number] Univers 00:00:00 00:00:00 Jeni [place] 350.1.13.10 i ty [place] [id number] [address] 2022-09-13 2022-09-13 Outpatient R [facility] [id number] Univers 11:00:00 11:00:00 ity of [facility] 2022-09-13 2022-09-13 Telephone [facility] 1.2.840.114 [id number] Univers 00:00:00 00:00:00 Ramón [place] 350.1.13.10 ity of [place] [phone] Nd dical NAL [address] [place] [address] 2022-09-13 2022-09-13 [facility]phone [facility] 1.2.840.114 [id number] Univers 00:00:00 00:00:00 Jeni [place] 350.1.13.10 i ty [place].2.[place] [phone] Nd dical NAL [address] [place] [address] 2022-09-12 2022-09-12 Emergency [facility] 1.2.840.114 [id number] Univers 21:33:00 22:56:00 Hui Julissa CHAMBERS 350.1.13.10 ity [place].2.[place] [phone] [facility] [address] [place] 2022-09-12 2022-09-12 Outpatient R [facility] [id number] Univers 15:07:02 21:32:00 ALEXANDRA ity [facility] 2022-09-12 2022-09-12 [facility] 1.2.840.114 [id number] Univers 15:07:02 21:32:00 Encounter Alexandra CHAMBERS 350.1.13.10 ity [facility] 4.2.7.2.[place] [phone] [facility] [address] [place] 2022-09-12 2022-09-12 Blood Bank Specialist 2, Adc Lab [facility] 1.2.840.114 [id number] Univers 15:30:00 15:45:00 Visit Alexandra Finnegan 350.1.13.10 ity [facility] 4.2.7.2.[place] [phone] Nd dical NAL 353 [facility] 2022-09-12 2022-09-12 Outpatient R [facility] [id number] Univers 13:30:00 14:26:44 ALEXANDRA malorie [facility] 2022-09-12 2022-09-12 Office [facility] 1.2.840.114 [id number] Univers 13:30:00 14:26:44 Visit Alexandra CHAMBERS 350.1.13.10 i ty of [place] [phone] Me dical NAL 044 [facility] 2022-09-12 2022-09-12 Telephone [facility] 1.2.992.857 [id number] Univers 00:00:00 00:00:00 Alexandra CHAMBERS 350.1.13.10 i ty [place] [phone] Nd dical NAL [address] [place] [address] 2022-09-12 2022-09-12 [facility] 1.2.328.016 [id number] Univers 00:00:00 00:00:00 Alexandra CHAMBERS 350.1.13.10 i ty [facility] 4.2.7.2.[place] [phone] Nd dicmo NAL [address] [place] [address] 2022-09-11 2022-09-11 Telephone [facility] 1.2.840.114 [id number] Univers 00:00:00 00:00:00 Ogbasiliou [place] 350.1.13.10 ity of [place] [phone] [facility] NAL [address] [place] [address] 2022-09-10 2022-09-10 Outpatient R DAJA [facility] [id number] Univers 10:30:00 11:36:35 JENI ity of [facility] 2022-09-06 2022-09-06 Telephone [facility] 1.2.840.114 [id number] Univers 00:00:00 00:00:00 Ladiu [place] 350.1.13.10 ity of [place] [phone] [facility] NAL [address] [place] [address] 2022-09-06 2022-09-06 Telephone [facility] 1.2.840.114 [id number] Univers 00:00:00 00:00:00 Ogsocorroukwu [place] 350.1.13.10 ity [facility] 4.[place] [phone] Nd dical NAL [address] [place] [address] 2022-09-05 2022-09-05 Refill [facility] 1.2.840.114 [id number] Univers 00:00:00 00:00:00 Ogechukwu [place] 350.1.13.10 ity of [facility] [place] [phone] Nd [address] 2022-09-04 2022-09-04 Patient [facility], [facility] 1.2.840.114 [id number] Univers 00:00:00 00:00:00 Outreach Mari Schmitz [place] 350.1.13.10 ity of [facility] [place] [phone] [address] 2022-09-04 2022-09-04 Orders Doctor LIBERTY 1.2.840.114 [id number] Univers 00:00:00 00:00:00 Only Unassigned, BRANDEE 350.1.13.10 ity of [place] [facility] 4.2.7.2.686 Suhas as [phone] [address] 2022-09-02 2022-09-02 Telephone [facility] 1.2.840.114 [id number] Univers 00:00:00 00:00:00 Ogbasiliou [place] 350.1.13.10 ity of [facility] [place] [phone] [address] 2022-08-30 2022-08-30 [facility]phone [facility] 1.2.840.114 [id number] Univers 00:00:00 00:00:00 Ogbasiliou [place] 350.1.13.10 ity of [facility] [place] [id number] [address] 2022-08-28 2022-08-28 Telephone [facility] 1.2.840.114 [id number] Univers 00:00:00 00:00:00 Ogranjaeu [place] 350.1.13.10 ity of [facility] 4[place] [id number] [address] 2022-08-27 2022-08-27 Telephone [facility] 1.2.840.114 [id number] Univers 00:00:00 00:00:00 Ogechukwu [place] 350.1.13.10 ity of [facility] 4[place]2.[place].2.[place] [phone] Nd dical NAL [address] [place] [address] 2022-08-27 2022-08-27 Telephone [facility] 1.2.840.114 [id number] Univers 00:00:00 00:00:00 Ogechukwu [place] 350.1.13.10 ity of [facility] 4[place].2.[place] [phone] Nd dicmo NAL [address] [place] [address] 2022-08-26 2022-08-26 Orders Doctor LIBERTY 1.2.840.114 [id number] Univers 00:00:00 00:00:00 Only Unassigned, BRANDEE 350.1.13.10 ity of [place] [facility] 4.2.7.2.686 [place] [phone] [address] 2022-08-26 2022-08-26 Telephone [facility] 1.2.840.114 [id number] Univers 00:00:00 00:00:00 Ogechukwu [place] 350.1.13.10 ity of [facility] 4[place]2.7.2.[place] [phone] Nd dical NAL [address] [place] [address] 2022-08-21 2022-08-21 Abstract [facility] 1.2.583.236 [id number] Univers 00:00:00 00:00:00 Ogechukwu [place] 350.1.13.10 ity of [facility] 4[place].2.[place] [phone] Nd dical NAL [address] [place] [address] 2022-08-19 2022-08-19 Telephone [facility] 1.2.840.114 [id number] Univers 00:00:00 00:00:00 Ogechukwu [place] 350.1.13.10 ity of [place].7.2.[place] [id number] Nd dical NAL [address] [place] [address] 2022-08-15 2022-08-15 Outpatient R RENEE [facility] [id number] Univers 15:40:00 15:40:00 LEIGHTON JEFFERSON of [facility] 2022-08-14 2022-08-14 Emergency [facility] [id number] Univers 00:06:00 03:01:00 LES espana [facility] 2022-08-14 2022-08-14 Emergency [facility] 1.2.840.114 [id number] Univers 00:06:00 03:01:00 Les [place] 350.1.13.10 i ty [place] [id number] [facility] [address] 2022-08-08 2022-08-08 Outpatient R CIARA [facility] [id number] Univers 16:45:00 15:22:09 BLAS [facility] 2022-08-07 2022-08-07 Orders Doctor LIBERTY 1.2.840.114 [id number] Univers 00:00:00 00:00:00 Only Unassigned, BRANDEE 350.1.13.10 ity of [facility] 4.2.7.2.686 [place] as [phone] [facility] [address] 2022-08-07 2022-08-07 Telephone Abena [facility] 1.2.840.114 102 [id number] Univers 00:00:00 00:00:00 Ramón CHAMBERS 350.1.13.10 ity of [place] [facility] [phone] Nd dical NAL [address] [place] [address] 2022-08-05 2022-08-05 Outpatient R RAMÓN KRAFT [facility] [id number] Univers 13:00:00 14:16:22 [facility]22-08-05 2022-08-05 Office Abena [facility] 1.2.840.114 18003 [id number] Univers 13:00:00 14:16:22 Visit Ramón CHAMBERS 350.1.13.10 [place] PROFESS[place] [phone] Nd dical NAL 044 [facility] 2022-08-05 2022-08-05 Patient Bao [facility] 1.2.840.114 [id number] Univers 00:00:00 00:00:00 Outreach Mari Nadir CHAMBERS 350.1.13.10 ity [facility] [place] PROF[place] [phone] Nd dical [facility] 044 [facility] 2022-08-02 2022-08-02 Orders Doctor LIBERTY 1.2.840.114 [id number] Univers 00:00:00 00:00:00 Only Unassigned, BRANDEE 350.1.13.10 ity of [place] [facility] 4.2.7.2.686 Suhas as [phone] [facility] [address] 2022-08-02 2022-08-02 Telephone LIBERTY Mcneal 1.2.840.114 10 [id number] Univers 00:00:00 00:00:00 Clare IRVNI 350.1.13.10 it y of [facility] 4.2.7.2.686 Suhas as [phone] [facility] 025 [place] 2022-08-01 2022-08-01 Transition TANI Snow 1.2.840.114 102 [id number] Univers 00:00:00 00:00:00 of Care Alex Rian MORALES 350.1.13.10 ity [facility] [place].2.[place] [phone] [facility] [address] 2022-08-01 2022-08-01 Telephone LIBERTY Mcneal 1.2.840.114 10 [id number] Univers 00:00:00 00:00:00 Clare IRVIN 350.1.13.10 it y of [facility] 4.2.7.2.686 Suhas as [phone] [facility] [address] 2022-07-28 2022-07-31 Inpatient U GAEL MOBARI EYAL [id number] Univers 01:36:00 19:14:00 MALIK espana of [facility] 2022-07-28 2022-07-31 Hospital Brennan Love 1.2.840.114 [id number] Univers 01:36:00 19:14:00 Encounter Malik Mayo 350.1.13.10 ity of [facility] 4.2.7.2.686 [facility] [phone] [facility] [address] 2022-07-18 2022-07-19 Emergency [facility] 1.2.177.263 3657 45663 Univers 21:30:00 01:47:00 [facility] 350.1.13.10 ity [facility] 4.2.7.2.686 [facility] [phone] [facility] [address] 2022-07-18 2022-07-19 Emergency X [facility] ERT [id number] Univers 21:30:00 01:47:00 [facility] 2022-06-25 2022-07-03 [facility] 1.2.840.1 [id number] Methodi 10:52:00 03:00:00 Encounter JoePhillip freemanel Aka 48076.1.[address] Naif Cartagena 3.430.2.7 H ospita .3.759506 l .8 2022-06-25 2022-07-03 [facility] 1.2.840.1 [id number] Methodi 10:52:00 03:00:00 Encounter Wilberto Joe Nha 98342.1.[address] Edmund Cartagenamin 3.430.2.7 H ospita .3.749587 l .8 2022-07-03 2022-07-03 Documentat Jose Alberto, 1.2.840.1 [id number] 2 [id number] Methodi 00:00:00 00:00:00 ion Cheryle 54424.1.[address] 3.430.2.7 Hospit a .3.721713 l .8 2022-07-03 2022-07-03 Documentat Jose Alberto, 1.2.840.1 [id number] 2 [id number] Methodi 00:00:00 00:00:00 ion Cheryle 97431.1.[address] 3.430.2.7 Hospit a .3.281831 l .8 2022-06-26 2022-06-26 Surgery Aaron, 1.2.840.1 [id number] [id number] 3259 Methodi 16:50:00 18:20:[address] 3.430.2.7 Hospit a .3.999210 l .8 2022-06-26 2022-06-26 [facility], 1.2.840.1 [id number] 880289 7932 Methodi 16:50:00 18:20:[address] 3.430.2.7 Hospit a .3.586950 l .8 2022-06-26 2022-06-26 [facility] 1.2.840.1 104 770467 [id number] Methodi 16:46:00 17:36:00 Event Thong Torres 55748.1.[address] 3.430.2.7 Hospit a .3.261210 l .8 2022-06-26 2022-06-26 [facility] 1.2.840.1 104 231725 [id number] Methodi 16:46:00 17:36:00 Event Thong Torres 15120.1.[address] 3.430.2.7 Hospit a .3.832811 l .8 2022-06-25 2022-06-25 [facility], 1.2.840.1 [id number] [id number] 4614 Methodi 09:00:00 10:28:55 Visit Davin 77082.1.[address] 3.430.2.7 Hospit a .3.246290 l .8 2022-06-25 2022-06-25 Office [facility], 1.2.840.1 [id number] 7926 Methodi 09:00:00 10:28:55 Visit Jin 88859.1.[address] 3.430.2.7 Hospit a .3.488179 l .8 2022-06-25 2022-06-25 Travel 1.2.840.1 1.2.288.761 7499 602266 Methodi 00:00:00 00:00:[address] 3.430.2.7 0.2.7.3.698 Ho spita .3.371953 084.8 l .8 2022-06-25 2022-06-25 Travel 1.2.840.1 1.2.714.549 3467 661870 Methodi 00:00:00 00:00:[address] 3.430.2.7 0.2.7.3.698 Ho spita .3.315790 084.8 l .8 2022-06-21 2022-06-21 Office Davin Walker 1.2.840.1 [id number] Methodi 13:00:00 14:47:04 Visit Louisa Escobar 23697.1.[address] 3.430.2.7 Hospit a .3.500122 l .8 2022-06-21 2022-06-21 Office Davin Walker 1.2.840.1 [id number] Methodi 13:00:00 14:47:04 Visit Louisa Escobar 20149.1.[address] 3.430.2.7 Hospit a .3.236189 l .8 2022-06-21 2022-06-21 Travel 1.2.840.1 1.2.325.437 1833 233119 Methodi 00:00:00 00:00:[address] 3.430.2.7 0.2.7.3.698 Ho spita .3.761886 084.8 l .8 2022-06-21 2022-06-21 Travel 1.2.840.1 1.2.193.467 7423 751595 Methodi 00:00:00 00:00:[address] 3.430.2.7 0.2.7.3.698 Ho spita .3.975521 084.8 l .8 2022-06-14 2022-06-14 Office Aaron 1.2.840.1 [id number] 4242 Methodi 13:10:00 13:23:28 Visit Davin 93445.1.[address] 3.430.2.7 Hospit a .3.699564 l .8 2022-06-14 2022-06-14 Office [facility], 1.2.840.1 [id number] 6706 Methodi 13:10:00 13:23:28 Visit Davin 72471.1.[address] 3.430.2.7 Hospit a .3.185317 l .8 2022-06-14 2022-06-14 Travel 1.2.840.1 1.2.727.237 9272 640437 Methodi 00:00:00 00:00:[address] 3.430.2.7 0.2.7.3.698 Ho spita .3.352672 084.8 l .8 2022-06-14 2022-06-14 Travel 1.2.840.1 1.2.339.697 7477 424415 Methodi 00:00:00 00:00:[address] 3.430.2.7 0.2.7.3.698 Ho spita .3.821323 084.8 l .8 2022-05-24 2022-05-24 Office [facility], 1.2.840.1 [id number] 8941 Methodi 14:00:00 14:54:06 Visit Davin 08319.1.[address] 3.430.2.7 Hospit a .3.796955 l .8 2022-05-24 2022-05-24 Office [facility], 1.2.840.1 [id number] 545411 8430 Methodi 14:00:00 14:54:06 Visit Davin 94470.1.[address] 3.430.2.7 Hospit a .3.751894 l .8 2022-05-24 2022-05-24 Travel 1.2.840.1 1.2.792.916 5959 618605 Methodi 00:00:00 00:00:[address] 3.430.2.7 0.2.7.3.698 Ho spita .3.125285 084.8 l .8 2022-05-24 2022-05-24 Travel 1.2.840.1 1.2.748.538 6680 071836 Methodi 00:00:00 00:00:[address] 3.430.2.7 0.2.7.3.698 Ho spita .3.519366 084.8 l .8 2022-05-08 2022-05-[address] [facility] [place] Kenneth Helms 1.2.840.1 [id number] Methodi 11:57:00 14:24:00 Encounter Noman Brewer 02253.1.[address] HarinderRon el 3.430.2.7 Hospita .3.976669 l .8 2022-05-08 2022-05-[address] [facility] [place] Kenneth Helms 1.2.840.1 [id number] Methodi 11:57:00 14:24:00 Encounter Noman Brewer 63378.1.[address] HarinderRon el 3.430.2.7 Hospita .3.342051 l .8 2022-05-14 2022-05-14 Documentat [facility], 1.2.840.1 [id number] Methodi 00:00:00 00:00:00 ion Alyse 04279.1.[address] 3.430.2.7 Hospit a .3.171969 l .8 2022-05-14 2022-05-14 Documentat Paulo, 1.2.840.1 [id number] Methodi 00:00:00 00:00:[address]lyse 87097.1.[address] 3.430.2.7 Hospit a .3.061192 l .8 2022-05-10 2022-05-10 Surgery Nur, 1.2.840.1 520690321 720266 7995 Methodi 11:00:00 13:05:[address] 3.430.2.7 Hospit a .3.306839 l .8 2022-05-10 2022-05-10 Surgery Nurko, 1.2.840.1 [id number] 831512 1825 Methodi 11:00:00 13:05:[address] 3.430.2.7 Hospit a .3.836686 l .8 2022-05-10 2022-05-10 Anesthesia Beulah Barcenas 1.2.840.1 978995 023 [id number] Methodi 11:12:00 12:34:00 Event Mari Gamboa 51935.1.[address] 3.430.2.7 Hospit a .3.870002 l .8 2022-05-10 2022-05-10 Anesthesia Beulah Barcenas 1.2.840.1 537410 023 [id number] Methodi 11:12:00 12:34:00 Event Mari Gamboa 18868.1.[address] 3.430.2.7 Hospit a .3.515732 l .8 2022-04-24 2022-04-24 Patient Carly, 1.2.840.1 [id number] 09421 05765 Methodi 00:00:00 00:00:00 Outreach Cheri 03456.1.1 432 s t 3.430.2.7 Hospit a .3.096490 l .8 2022-04-24 2022-04-24 Patient Carroll, 1.2.840.1 [id number] 96817 31156 Methodi 00:00:00 00:00:00 Outreach Cheri 40355.1.1 432 s t 3.430.2.7 Hospit a .3.649077 l .8 2022-04-12 2022-04-19 [facility] .1 [id number] Methodi 15:27:00 19:06:00 Encounter Hecotr Orozco 13390.1.[address] Fahad Costello 3.430.2.7 Hospita , Abid .3.203224 l Ricky, July .8 2022-04-12 2022-04-19 [facility] 1.2.840 .1 [id number] [id number] Methodi 15:27:00 19:06:00 Encounter Hector Orozco 65828.1.[address] [facility] H[facility]ita Radha Pastord .3.233531 l Ricky, July .8 2022-04-19 2022-04-19 Anesthesia Tu, 1.2.840.1 [id number] 009 1785248 Methodi 14:04:00 14:26:00 Event Jesus 75057.1.[address] Thi 3.430.2.7 Hospit a .3.500240 l .8 2022-04-19 2022-04-19 Anesthesia Tu, 1.2.840.1 209785134 222 8974829 Methodi 14:04:00 14:26:00 Event Jesus 92721.1.[address] Thi 3.430.2.7 Hospit a .3.273558 l .8 2022-03-08 2022-03-14 [place] 1.2.840.1 10 0915517 [id number] Methodi 22:25:00 20:26:00 En[place] 53675.1.1 934 [facility] Chacha Carbajal .3.832467 l Tyron, Elain .8 2022-03-08 2022-03-14 [facility] 1.2.840.1 10 2419462 [id number] Methodi 22:25:00 20:26:00 Encounter Jeff Short Thi 20355.1.1 934 [facility] Chacha Raven .3.546941 l Tyron, Elain .8 2022-03-12 2022-03-12 Surgery Nurko, 1.2.840.1 [id number] 719242 9773 Methodi 14:03:00 15:48:[address] 3.430.2.7 Hospit a .3.585429 l .8 2022-03-12 2022-03-12 Surgery Nurko, 1.2.840.1 [id number] 712855 9164 Methodi 14:03:00 15:48:[address] 3.430.2.7 Hospit a .3.739670 l .8 2022-03-12 2022-03-12 Anesthesia Urrutia, 1.2.840.1 296792260 845 3850092 Methodi 14:23:00 15:33:00 Event Mary Estevez 70878.1.[address] 3.430.2.7 Hospit a .3.925239 l .8 2022-03-12 2022-03-12 Anesthesia Urrutia, 1.2.840.1 605113646 370 4239680 Methodi 14:23:00 15:33:00 Event Mary Estevez 30260.1.[address] 3.430.2.7 Hospit a .3.514624 l .8 2022-03-08 2022-03-08 Travel 1.2.840.1 1.2.055.513 1914 670303 Methodi 00:00:00 00:00:[address] 3.430.2.7 0.2.7.3.698 Ho spita .3.114429 084.8 l .8 2022-03-08 2022-03-08 Travel 1.2.840.1 1.2.154.099 0919 348716 Methodi 00:00:00 00:00:[address] 3.430.2.7 0.2.7.3.698 Ho spita .3.693766 084.8 l .8 2022-01-01 2022-01-05 Inpatient EM Lance [facility] [id number] [facility] 16:59:00 12:20:00 Ab Doyle [facility] 2021-12-10 2021-12-14 Hospital Wilberto Carbajal 1.2.840.1 104 742409 [id number] Methodi 21:52:00 15:50:00 Encounter Ale Farias 52565.1.[address] René De Jesus 3.430.2.7 Hospita .3.750972 l .8 2021-12-10 2021-12-10 Travel 1.2.840.1 1.2.726.010 2158 465018 Methodi 00:00:00 00:00:[address] 3.430.2.7 0.2.7.3.698 Ho spita .3.412729 084.8 l .8 2021-11-08 2021-11-08 Emergency Mitzi, 1.2.840.1 [id number] 2100 366908 Methodi 10:26:00 14:01:[address] 3.430.2.7 Hospit a .3.557917 l .8 2021-10-10 2021-10-10 Emergency Fahad Anna 1.2.840.1 [id number] Methodi 20:57:00 23:49:[address] 3.430.2.7 Hospit a .3.137186 l .8 2021-10-07 2021-10-07 Emergency EM Janina [facility] [id number] [facility] 06:46:00 07:39:00 Jerry 58 [facility] 2021-09-30 2021-09-30 Emergency EM Nataly [facility] [id number] [facility] 18:18:00 19:46:00 Margo 39 [facility] 2021-08-15 2021-08-15 Outpatient GC_HGMDA_Go PRIV PRIV 110 23807-5 [facility] 09:28:00 09:28:00 nzalez_J [id number] Medic al 2021-08-132021-08-13 Outpatient GC_HGMDA_Go PRIV PRIV 110 55670-6 [facility] 12:25:00 12:25:00 nzalez_J [id number] [facility] al 2021-08-06 2021-08-06 Emergency EM Cresencio [facility] [id number] [facility] 15:06:00 18:56:00 Brennan 32 [facility] 2021-07-18 2021-07-[address] [facility] [id number] [facility] 00:00:00 00:00:00 [facility] 2021-06-29 2021-06-29 Office 0 Hibbs [id number] 13:30:00 16:29:55 Visit 06 2021-06-29 2021-06-29 Outpatient Berta Schwab [facility] 2343 820-20 [place] 13:13:00 13:13:00 Hibbs [facility] [id number] [facility] 2021-03-22 2021-03-22 Travel 1.2.840.1 1.2.576.263 5997 857993 Methodi 00:00:00 00:00:[address] 3.430.2.7 0.2.7.3.698 Ho spita .3.219810 084.8 l .8 2021-02-02 2021-02-02 Emergency [facility] [id number] 12521 Dru 14:47:00 17:56:00 Shazia burns 2021-02-02 2021-02-02 Emergency [facility] [id number] 13 [place] 15:08:10 15:31:04 [facility] [address] 2021-01-02 2021-01-03 Emergency Juan, 1.2.840.1 [id number] 2 [id number] Methodi 18:54:00 01:22:00 Donaldo Ramos 70051.1.[address] 3.430.2.7 Hospit a .3.520495 l .8 2020-12-24 2020-12-24 Emergency EM [facility] [id number] [facility] 12:04:00 17:13:00 Jerry [facility] Results Test Description Test Time Test Comments [...] g/dL 31.2-35.0 L RDW-SD (test code = 81952-4) 54.8 fL 38.5-51.6 H RDW-CV (test code = 788-0) 16.2 % 12.1-15.4 H PLT (test code = 777-3) 400 See_Comment H [Au tomated message] The system which ge nerated this result transmit yana reference range: 150 - 32 8 10*3/?L. The reference range was not used to interpret th is result as normal/abnormal . MPV (test code = 45583-4) 9.9 fL 9.8-13.0 NRBC/100 WBC (test code = 0.0 See_Comment [ Automated message] The 0729820100) system which ge nerated this result transmit yana reference range: 0.0 - 10 .0 /100 WBCs. The reference r maggi was not used to interpr et this result as normal/abnor mal. NRBC x10^3 (test code = See_Comment [Au tomated message] The 5447518989) system which ge nerated this result transmit yana reference range: 10*3/?L. The reference range was not u sed to interpret this result as normal/abnormal . GRAN MAT (NEUT) % (test code 54.6 % = 770-8) IMM GRAN % (test code = 3.70 % 3712015344) LYMPH % (test code = 736-9) 31.5 % MONO % (test code = 5905-5) 7.3 % EOS % (test code = 713-8) 2.2 % BASO % (test code = 706-2) 0.7 % GRAN MAT x10^3(ANC) (test 2.98 10*3/uL 1.99-6.95 code = 2701923817) IMM GRAN x10^3 (test code = 0.20 10*3/uL 0.00-0.06 H 4409170878) LYMPH x10^3 (test code = 1.72 10*3/uL 1.09-3.23 731-0) MONO x10^3 (test code = 0.40 10*3/uL 0.36-1.02 742-7) EOS x10^3 (test code = 0.12 10*3/uL 0.06-0.53 711-2) BASO x10^3 (test code = 0.04 10*3/uL 0.01-0.09 704-7) Lab Interpretation (test Abnormal code = 25085-3) [facility] WITH SHEY6146-90-10 21:59:01 Test Item Value Reference Range Interpretation Comments WBC (test code = 5.46 See_Comment [Automated 5590-2) message] The sy stem which generated this result transmitted reference range : 4.20 - 10.70 10*3/?L. The reference range was not used to interpret this result as normal/abnormal . RBC (test code = 3.38 See_Comment L [Automated 439-8) message] The sy stem which generated this [...] (test code = 54.8 fL 38.5-51.6 H 50558-7) RDW-CV (test code = 16.2 % 12.1-15.4 H 788-0) PLT (test code = 400 See_Comment H [Automated 777-3) message] The sy stem which generated this result transmitted reference range : 150 - 328 10*3/ ?L. The reference r maggi was not used to interpret this result as normal/abnormal . MPV (test code = 9.9 fL 9.8-13.0 69992-9) NRBC/100 WBC (test 0.0 See_Comment [Automat ed code = 8030079227) message] The system which generated this result transmitted reference range : 0.0 - 10.0 /100 WBCs. The refer ence range was not u sed to interpret th is result as normal/abnormal . NRBC x10^3 (test code See_Comment [Auto mated = 8506277142) message] The s ystem which generated this result transmitted reference range : 10*3/?L. The reference range was not used to interpret this result as normal/abnormal . GRAN MAT (NEUT) % 54.6 % (test code = 770-8) IMM GRAN % (test code 3.70 % = 3517309623) LYMPH % (test code = 31.5 % 736-9) MONO % (test code = 7.3 % 5905-5) EOS % (test code = 2.2 % 713-8) BASO % (test code = 0.7 % 706-2) GRAN MAT x10^3(ANC) 2.98 10*3/uL 1.99-6.95 (test code = 0737693119) IMM GRAN x10^3 (test 0.20 10*3/uL 0.00-0.06 H code = 0982033417) LYMPH x10^3 (test code 1.72 10*3/uL 1.09-3.23 = 731-0) MONO x10^3 (test code 0.40 10*3/uL 0.36-1.02 = 742-7) EOS x10^3 (test code = 0.12 10*3/uL 0.06-0.53 711-2) BASO x10^3 (test code 0.04 10*3/uL 0.01-0.09 = 704-7) Lab Interpretation Abnormal (test code = 06381-9) [facility]53:02 Test Item Value Reference Range Interpretation Comments TSH (test code = 0.20 See_Comment L [Automated message] 5948424230) The system [employer] generated this result transmitted ref erence range: 0.45 - 4 .70 mIU/L. The refe rence range was not u sed to interpret this result as normal/abnor mal. Lab Interpretation (test Abnormal code = 05410-1) [facility]2023-08-28 21:53:02 Test Item Value Reference Range Interpretation Comments TSH (test code = 0.20 See_Comment L [Automated message] 7829200260) The system [employer] generated this result transmitted ref erence range: 0.45 - 4 .70 mIU/L. The refe rence range was not u sed to interpret this result as normal/abnor mal. Lab Interpretation (test Abnormal code = 76012-7) [place] 633492023-08-28 21:38:58 Test Item Value Reference Range Interpretation Comments FREE T4 (test code = 2.05 See_Comment [Autom ated message] 5645579179) The system [employer] generated this result transmitted ref erence range: 0.78 - 2 .20 ng/dL:. The ref erence range was not u sed to interpret this result as normal/abnor mal. Lab Interpretation (test Normal code = 50451-0) [place] 633492023-08-28 21:38:58 Test Item Value Reference Range Interpretation Comments FREE T4 (test code = 2.05 See_Comment [Autom ated message] 9895821324) The system [employer] generated this result transmitted ref erence range: 0.78 - 2 .20 ng/dL:. The ref erence range was not u sed to interpret this result as normal/abnor mal. Lab Interpretation (test Normal code = 99558-4) [facility] (66530)(TOTAL CHOLESTEROL, TRIGLYCERIDES, HDL)2022-12-16 21:23:18 Test Item Value Reference Range Interpretation Comments CHOL (test code = 7598207553) 119 mg/dL 120-200 L HDL (test code = 5821365795) 28 mg/dL >=40 L HDLC RATIO (test code = 4046990153) 4.3 <=5.0 TRIG (test code = 6686928759) 118 mg/dL 30-170 LDL CHOL (test code = 77634-0) 67 mg/dL <=160 VLDL (test code = 0208290678) 24 mg/dL 5-60 Lab Interpretation (test code = Abnormal 80112-6) [facility] (49802)(TOTAL CHOLESTEROL, TRIGLYCERIDES, HDL)2022-12-16 21:23:18 Test Item Value Reference Range Interpretation Comments CHOL (test code = 0995386605) 119 mg/dL 120-200 L HDL (test code = 2638718815) 28 mg/dL >=40 L HDLC RATIO (test code = 0670774082) 4.3 <=5.0 TRIG (test code = 7225566419) 118 mg/dL 30-170 LDL CHOL (test code = 20082-0) 67 mg/dL <=160 VLDL (test code = 8395276025) 24 mg/dL 5-60 Lab Interpretation (test code = Abnormal 81558-8) [facility] (75504)2022-12-16 21:22:58 Test Item Value Reference Range Interpretation Comments NA (test code = 140 mmol/L 135-145 0563412833) K (test code = 5.2 mmol/L 3.5-5.0 H 2380078789) CL (test code = 103 mmol/L 98-108 1059889303) CO2 TOTAL (test code = 27 mmol/L 23-31 5057946261) AGAP (test code = 10 2-16 9802602399) BUN (test code = 51 mg/dL 7-23 H 8061396839) GLUCOSE (test code = 145 mg/dL 70-110 H 9732562420) CREATININE (test code = 2.84 mg/dL 0.60-1.25 H 9327400481) TOTAL BILI (test code = 0.1 mg/dL 0.1-1.5 9280157795) CALCIUM (test code = 8.7 mg/dL 8.6-10.6 8861428528) T PROTEIN (test code = 7.0 g/dL 6.3-8.2 6108020988) ALBUMIN (test code = 3.7 g/dL 3.5-5.0 3962155468) ALK PHOS (test code = 71 U/L 34-122 1747981832) ALTv (test code = 19 U/L 5-50 1742-6) AST(SGOT) (test code = 18 U/L 13-40 3159471723) eGFR (test code = 23.3 mL/min/1.73m2 3851134381) MOE (test code = MOE) Association of [...] tests). Lab Interpretation Abnormal (test code = 91564-8) [facility]. METABOLIC PANEL ([id number])2022-12-16 21:22:58 Test Item Value Reference Range Interpretation Comments NA (test code = 140 mmol/L 135-145 7663209930) K (test code = 5.2 mmol/L 3.5-5.0 H 7520085246) CL (test code = 103 mmol/L 98-108 1887539067) CO2 TOTAL (test code = 27 mmol/L 23-31 8879996464) AGAP (test code = 10 2-16 7583864335) BUN (test code = 51 mg/dL 7-23 H 4842303638) GLUCOSE (test code = 145 mg/dL 70-110 H 0185703022) CREATININE (test code = 2.84 mg/dL 0.60-1.25 H 3177314838) TOTAL BILI (test code = 0.1 mg/dL 0.1-1.4 8855167117) CALCIUM (test code = 8.7 mg/dL 8.6-10.6 8718495967) T PROTEIN (test code = 7.0 g/dL 6.3-8.2 0289205749) ALBUMIN (test code = 3.7 g/dL 3.5-5.0 8462272890) ALK PHOS (test code = 71 U/L 34-122 3348553024) ALTv (test code = 19 U/L 5-50 1742-6) AST(SGOT) (test code = 18 U/L 13-40 0956274791) eGFR (test code = 23.3 mL/min/1.73m2 5275716314) MOE (test code = MOE) Association of [...] tests). Lab Interpretation Abnormal (test code = 34880-6) [facility]2022-12-16 20:33:38 Test Item Value Reference Range Interpretation Comments HGB A1C (test code = 7.3 % 4.0-5.7 H 4548-4) MOE (test code = MOE) Reference RangesNormal: <5.7%Prediabetes: 5.7 - 6.4%Diabetes: > 6.5% Lab Interpretation (test Abnormal code = 44440-6) [facility]2022-12-16 20:33:38 Test Item Value Reference Range Interpretation Comments HGB A1C (test code = 7.3 % 4.0-5.7 H 4548-4) MOE (test code = MOE) Reference RangesNormal: <5.7%Prediabetes: 5.7 - 6.4%Diabetes: > 6.5% Lab Interpretation (test Abnormal code = 75832-9) [facility] (NA, K, CL, CO2, GLUCOSE, BUN, CREATININE, CA)2022-09-13 03:38:19 Test Item Value Reference Range Interpretation Comments NA (test code = 137 mmol/L 135-145 7294767252) K (test code = 5.9 mmol/L 3.5-5.0 H 5830979180) CL (test code = 103 mmol/L 98-108 9174174982) CO2 TOTAL (test code = 25 mmol/L 23-31 9033665014) AGAP (test code = 9 2-16 5529192129) BUN (test code = 23 mg/dL 7-23 7931034348) GLUCOSE (test code = 235 mg/dL 70-110 H 8881831533) CREATININE (test code = 1.14 mg/dL 0.60-1.25 0511981340) CALCIUM (test code = 8.8 mg/dL 8.6-10.6 3184824226) eGFR (test code = 66.7 mL/min/1.73m2 6852102085) MOE (test code = MOE) Association of [...] tests). Lab Interpretation Abnormal (test code = 02510-7) [facility]2022-08-14 07:30:03 Test Item Value Reference Range Interpretation Comments POCT GLU (test code = 1308613783) 175 mg/dL 70-110 H Lab Interpretation (test code = Abnormal 30221-4) [facility] METABOLIC PANEL (NA, K, CL, CO2, GLUCOSE, BUN, CREATININE, CA)2022-08-14 06:49:10 Test Item Value Reference Range Interpretation Comments NA (test code = 137 mmol/L 135-145 5050849312) K (test code = 4.8 mmol/L 3.5-5.0 9927665272) CL (test code = 106 mmol/L 98-108 0393440180) CO2 TOTAL (test code = 25 mmol/L 23-31 7052804242) AGAP (test code = 6 2-16 9180337603) BUN (test code = 35 mg/dL 7-23 H 4669198775) GLUCOSE (test code = 187 mg/dL 70-110 H 6186310930) CREATININE (test code = 1.19 mg/dL 0.60-1.25 1645330948) CALCIUM (test code = 8.5 mg/dL 8.6-10.6 L 0793168472) eGFR (test code = 63.5 mL/min/1.73m2 0353641776) MOE (test code = MOE) Association of [...] tests). Lab Interpretation Abnormal (test code = 73681-0) [facility] WITH [id number] 06:35:09 Test Item Value Reference Range Interpretation [...] (test code = 58.6 fL 38.5-51.6 H 30863-5) RDW-CV (test code = 17.5 % 12.1-15.4 H 788-0) PLT (test code = 328 See_Comment [Automated 777-3) message] The sy stem which generated this result transmitted reference range : 150 - 328 10*3/ ?L. The reference r maggi was not used to interpret this result as normal/abnormal . MPV (test code = 10.1 fL 9.8-13.0 22063-0) NRBC/100 WBC (test 0.0 See_Comment [Automat ed code = 8721293992) message] The system which generated this result transmitted reference range : 0.0 - 10.0 /100 WBCs. The refer ence range was not u sed to interpret th is result as normal/abnormal . NRBC x10^3 (test code See_Comment [Auto mated = 3571528543) message] The s ystem which generated this result transmitted reference range : 10*3/?L. The reference range was not used to interpret this result as normal/abnormal . GRAN MAT (NEUT) % 63.9 % (test code = 770-8) IMM GRAN % (test code 0.50 % = 8379365247) LYMPH % (test code = 24.9 % 736-9) MONO % (test code = 7.4 % 5905-5) EOS % (test code = 2.4 % 713-8) BASO % (test code = 0.9 % 706-2) GRAN MAT x10^3(ANC) 4.21 10*3/uL 1.99-6.95 (test code = 9766497316) IMM GRAN x10^3 (test 0.03 10*3/uL 0.00-0.06 code = 1869407987) LYMPH x10^3 (test code 1.64 10*3/uL 1.09-3.23 = 731-0) MONO x10^3 (test code 0.49 10*3/uL 0.36-1.02 = 742-7) EOS x10^3 (test code = 0.16 10*3/uL 0.06-0.53 711-2) BASO x10^3 (test code 0.06 10*3/uL 0.01-0.09 = 704-7) Lab Interpretation Abnormal (test code = 93519-9) [facility] 12 [id number] 20:13:46 Test Item Value Reference Range Interpretation Comments Ventricular rate (test 79 code = 253) Atrial rate (test code 79 = 255) CO interval (test code 150 = 266) QRSD [...] Cannon MD ([id number]) on 08/08/2022 3:13:[address] PM [address]2023-04-20 20:13:46 Test Item Value Reference Range Interpretation Comments Ventricular rate (test 79 code = 253) Atrial rate (test code 79 = 255) CO interval (test code 150 = 266) QRSD [...] Cannon MD ([id number]) on 08/08/2022 3:13:[address] PM [address]2023-04-20 20:13:46 Test Item Value Reference Range Interpretation Comments Ventricular rate (test 79 code = 253) Atrial rate (test code 79 = 255) CO interval (test code 150 = 266) QRSD [...] Cannon MD ([id number]) on 08/08/2022 3:13:[address] PM [address]2023-04-20 20:13:46 Test Item Value Reference Range Interpretation Comments Ventricular rate (test 79 code = 253) Atrial rate (test code 79 = 255) CO interval (test code 150 = 266) QRSD [...] Cannon MD ([id number]) on 08/08/2022 3:13:[address] PM [address]2023-04-20 20:13:46 Test Item Value Reference Range Interpretation Comments Ventricular rate (test 79 code = 253) Atrial rate (test code 79 = 255) CO interval (test code 150 = 266) QRSD [...] Cannon MD ([id number]) on 08/08/2022 3:13:[address] PM [address]2023-04-20 20:13:46 Test Item Value Reference Range Interpretation Comments Ventricular rate (test 79 code = 253) Atrial rate (test code 79 = 255) CO interval (test code 150 = 266) QRSD [...] Cannon MD ([id number]) on 08/08/2022 3:13:[address] PM [address]2023-04-20 20:13:46 Test Item Value Reference Range Interpretation Comments Ventricular rate (test 79 code = 253) Atrial rate (test code 79 = 255) CO interval (test code 150 = 266) QRSD [...] Cannon MD ([id number]) on 08/08/2022 3:13:[address] PM [address]2023-04-20 20:13:46 Test Item Value Reference Range Interpretation Comments Ventricular rate (test 79 code = 253) Atrial rate (test code 79 = 255) CO interval (test code 150 = 266) QRSD [...] Cannon MD ([id number]) on 08/08/2022 3:13:[address] PM [address]2023-04-20 20:13:46 Test Item Value Reference Range Interpretation Comments Ventricular rate (test 79 code = 253) Atrial rate (test code 79 = 255) CO interval (test code 150 = 266) QRSD [...] leads-QT has lengthened-Electronica lly Signed By Jaspreet Canonn MD ([id number]) on 08/08/2022 3:13:[address]2023-04-20 20:13:46 Test Item Value Reference Range Interpretation Comments Ventricular rate (test 79 code = 253) Atrial rate (test code 79 = 255) CO interval (test code 150 = 266) QRSD [...] Cannon MD ([id number]) on 08/08/2022 3:13:[address]2023-04-20 20:13:46 Test Item Value Reference Range Interpretation Comments Ventricular rate (test 79 code = 253) Atrial rate (test code 79 = 255) CO interval (test code 150 = 266) QRSD [...] Cannon MD ([id number]) on 08/08/2022 3:13:[address]2023-04-20 20:13:46 Test Item Value Reference Range Interpretation Comments Ventricular rate (test 79 code = 253) Atrial rate (test code 79 = 255) CO interval (test code 150 = 266) QRSD [...] Cannon MD ([id number]) on 08/08/2022 3:13:[address]2023-04-20 20:13:46 Test Item Value Reference Range Interpretation Comments Ventricular rate (test 79 code = 253) Atrial rate (test code 79 = 255) CO interval (test code 150 = 266) QRSD [...] Cannon MD ([id number]) on 08/08/2022 3:13:[address]2023-04-20 20:13:46 Test Item Value Reference Range Interpretation Comments Ventricular rate (test 79 code = 253) Atrial rate (test code 79 = 255) CO interval (test code 150 = 266) QRSD [...] Cannon MD ([id number]) on 08/08/2022 3:13:[address]2023-04-20 20:13:46 Test Item Value Reference Range Interpretation Comments Ventricular rate (test 79 code = 253) Atrial rate (test code 79 = 255) CO interval (test code 150 = 266) QRSD [...] lengthened-Electronica lly Signed By Jaspreet Cannon MD ([id number]) on 08/08/2022 3:13:43 PM [facility]2023-04-20 05:30:00 Test Item Value Reference Range Interpretation Comments AFB culture No growth Specimen isolate (test after 6 weeks InformationSp ecimen code = 543-9) of Source: Tissue Specimen incubation. Site: Leg: Left [facility] Extremity [facility]2023-04-20 05:30:00 Test Item Value Reference Range Interpretation Comments AFB culture No growth Specimen isolate (test after 6 weeks InformationSp ecimen code = 543-9) of Source: Tissue Specimen incubation. Site: Leg: Left Lower Extremity [facility]2023-04-20 05:30:00 Test Item Value Reference Range Interpretation Comments AFB culture No growth Specimen isolate (test after 6 weeks InformationSp ecimen code = 543-9) of Source: Tissue Specimen incubation. Site: Leg: Left Lower Extremity [facility]2023-04-20 05:30:00 Test Item Value Reference Range Interpretation Comments AFB culture No growth Specimen isolate (test after 6 weeks InformationSp ecimen code = 543-9) of Source: Tissue Specimen incubation. Site: Leg: Left Lower Extremity [facility]2023-04-20 05:30:00 Test Item Value Reference Range Interpretation Comments AFB culture No growth Specimen isolate (test after 6 weeks InformationSp ecimen code = 543-9) of Source: Tissue Specimen incubation. Site: Leg: Left Lower Extremity [facility]2023-04-20 05:30:00 Test Item Value Reference Range Interpretation Comments AFB culture No growth Specimen isolate (test after 6 weeks InformationSp ecimen code = 543-9) of Source: Tissue Specimen incubation. Site: Leg: Left Lower Extremity - [facility] [id number] 05:30:00 Test Item Value Reference Range Interpretation Comments AFB culture No growth Specimen isolate (test after 6 weeks InformationSp ecimen code = 543-9) of Source: Tissue Specimen incubation. Site: Leg: Left Lower Extremity - [facility] [id number] 05:30:00 Test Item Value Reference Range Interpretation Comments AFB culture No growth Specimen isolate (test after 6 weeks InformationSp ecimen code = 543-9) of Source: Tissue Specimen incubation. Site: Leg: Left Lower Extremity - [facility] [id number] 05:30:00 Test Item Value Reference Range Interpretation Comments AFB culture No growth Specimen isolate (test after 6 weeks InformationSp ecimen code = 543-9) of Source: Tissue Specimen incubation. Site: Leg: Left Lower Extremity - [facility] [id number] 05:30:00 Test Item Value Reference Range Interpretation Comments AFB culture No growth Specimen isolate (test after 6 weeks InformationSp ecimen code = 543-9) of Source: Tissue Specimen incubation. Site: Leg: Left Lower Extremity - [facility] [id number] 05:30:00 Test Item Value Reference Range Interpretation Comments AFB culture No growth Specimen isolate (test after 6 weeks InformationSp ecimen code = 543-9) of Source: Tissue Specimen incubation. Site: Leg: Left Lower Extremity - [facility] [id number] 05:30:00 Test Item Value Reference Range Interpretation Comments AFB culture No growth Specimen isolate (test after 6 weeks InformationSp ecimen code = 543-9) of Source: Tissue Specimen incubation. Site: Leg: Left Lower Extremity - [facility] [id number] 05:30:00 Test Item Value Reference Range Interpretation Comments AFB culture No growth Specimen isolate (test after 6 weeks InformationSp ecimen code = 543-9) of Source: Tissue Specimen incubation. Site: Leg: Left Lower Extremity - [facility] [id number] 05:30:00 Test Item Value Reference Range Interpretation Comments AFB culture No growth Specimen isolate (test after 6 weeks InformationSp ecimen code = 543-9) of Source: Tissue Specimen incubation. Site: Leg[id number] 05:30[facility]00 Test Item Value Reference Range Interpretation Comments AFB culture No growth Specimen isolate (test after 6 weeks InformationSp ecimen code = 543-9) of Source: Tissue Specimen incubation. Site: Leg: Left Lower Extremity [facility] 22:28:25 Test Item Value Reference Range Interpretation Comments POCT GLU (test code = 5121325467) 116 mg/dL 70-110 H Lab Interpretation (test code = Abnormal 33507-6) [facility] GLUCOSE (AUTOMATED)2022-07-31 17:14:36 Test Item Value Reference Range Interpretation Comments POCT GLU (test code = 8458941391) 136 mg/dL 70-110 H Lab Interpretation (test code = Abnormal 96089-2) [facility] GLUCOSE (AUTOMATED)2022-07-31 01:47:10 Test Item Value Reference Range Interpretation Comments POCT GLU (test code = 2018245325) 141 mg/dL 70-110 H Lab Interpretation (test code = Abnormal 38647-4[facility] 23:18:09 Test Item Value Reference Range Interpretation Comments POCT GLU (test code = 0465840259) 140 mg/dL 70-110 H Lab Interpretation (test code = Abnormal 56821-7) [facility] GLUCOSE (AUTOMATED)2022-07-30 18:43:38 Test Item Value Reference Range Interpretation Comments POCT GLU (test code = 0686116718) 165 mg/dL 70-110 H Lab Interpretation (test code = Abnormal 37149-9) [facility] 14:19:36 Test Item Value Reference Range Interpretation Comments POCT GLU (test code = 7148474201) 90 mg/dL 70-110 Lab Interpretation (test code = Normal 49146-8) [facility] GLUCOSE (AUTOMATED)2022-07-30 01:37:57 Test Item Value Reference Range Interpretation Comments POCT GLU (test code = 5640674943) 100 mg/dL 70-110 Lab Interpretation (test code = Normal 73171-6) [facility] GLUCOSE (AUTOMATED)2022-07-29 22:44:33 Test Item Value Reference Range Interpretation Comments POCT GLU (test code = 8599902201) 113 mg/dL 70-110 H Lab Interpretation (test code = Abnormal 49911-7) [facility] GLUCOSE (AUTOMATED)2022-07-29 18:36:00 Test Item Value Reference Range Interpretation Comments POCT GLU (test code = 1975277967) 108 mg/dL 70-110 Lab Interpretation (test code = Normal 47996-3) [facility] GLUCOSE (AUTOMATED)2022-07-29 13:47:37 Test Item Value Reference Range Interpretation Comments POCT GLU (test code = 6472292827) 91 mg/dL 70-110 Lab Interpretation (test code = Normal 76508-2) [facility] GLUCOSE (AUTOMATED)2022-07-29 01:19:16 Test Item Value Reference Range Interpretation Comments POCT GLU (test code = 1687094088) 143 mg/dL 70-110 H Lab Interpretation (test code = Abnormal 15620-6) [facility] GLUCOSE (AUTOMATED)2022-07-28 21:10:26 Test Item Value Reference Range Interpretation Comments POCT GLU (test code = 9116711677) 148 mg/dL 70-110 H Lab Interpretation (test code = Abnormal 99348-6) [facility] GLUCOSE (AUTOMATED)2022-07-28 17:13:13 Test Item Value Reference Range Interpretation Comments POCT GLU (test code = 4640579939) 199 mg/dL 70-110 H Lab Interpretation (test code = Abnormal 20506-3) [facility] GLUCOSE (AUTOMATED)2022-07-28 12:53:47 Test Item Value Reference Range Interpretation Comments POCT GLU (test code = 8840501101) 113 mg/dL 70-110 H Lab Interpretation (test code = Abnormal 47011-0) [facility] GLUCOSE (AUTOMATED)2022-07-28 08:02:41 Test Item Value Reference Range Interpretation Comments POCT GLU (test code = 4377404819) 126 mg/dL 70-110 H Lab Interpretation (test code = Abnormal 11175-4) [id number] 05:40:00 Test Item Value Reference Range Interpretation Comments Fungus culture No growth Specimen isolate (test after 4 weeks InformationSp ecimen code = 580-1) of Source: Tissue Specimen incubation. Site: Leg: Left Lower Extremity - [facility]2023-04-06 05:40:00 Test Item Value Reference Range Interpretation Comments Fungus culture No growth Specimen isolate (test after 4 weeks InformationSp ecimen code = 580-1) of Source: Tissue Specimen incubation. Site: Leg: Left Lower Extremity - [facility]2023-04-06 05:40:00 Test Item Value Reference Range Interpretation Comments Fungus culture No growth Specimen isolate (test after 4 weeks InformationSp ecimen code = 580-1) of Source: Tissue Specimen incubation. Site: Leg: Left Lower Extremity - [facility]2023-04-06 05:40:00 Test Item Value Reference Range Interpretation Comments Fungus culture No growth Specimen isolate (test after 4 weeks InformationSp ecimen code = 580-1) of Source: Tissue Specimen incubation. Site: Leg: Left Lower Extremity - [facility] [id number] 05:40:00 Test Item Value Reference Range Interpretation Comments Fungus culture No growth Specimen isolate (test after 4 weeks InformationSp ecimen code = 580-1) of Source: Tissue Specimen incubation. Site: Leg: Left Lower Extremity - [facility]2023-04-06 05:40:00 Test Item Value Reference Range Interpretation Comments Fungus culture No growth Specimen isolate (test after 4 weeks InformationSp ecimen code = 580-1) of Source: Tissue Specimen incubation. Site: Leg: Left Lower Extremity - [facility]2023-04-06 05:40:00 Test Item Value Reference Range Interpretation Comments Fungus culture No growth Specimen isolate (test after 4 weeks InformationSp ecimen code = 580-1) of Source: Tissue Specimen incubation. Site: Leg: Left Lower Extremity - [facility]2023-04-06 05:40:00 Test Item Value Reference Range Interpretation Comments Fungus culture No growth Specimen isolate (test after 4 weeks InformationSp ecimen code = 580-1) of Source: Tissue Specimen incubation. Site: Leg: Left Lower Extremity - [facility] [id number] 05:40:00 Test Item Value Reference Range Interpretation Comments Fungus culture No growth Specimen isolate (test after 4 weeks InformationSp ecimen code = 580-1) of Source: Tissue Specimen incubation. Site: Leg: Left Lower Extremity - [facility] [id number] 05:40:00 Test Item Value Reference Range Interpretation Comments Fungus culture No growth Specimen isolate (test after 4 weeks InformationSp ecimen code = 580-1) of Source: Tissue Specimen incubation. Site: Leg: Left Lower Extremity - [facility] [id number] 05:40:00 Test Item Value Reference Range Interpretation Comments Fungus culture No growth Specimen isolate (test after 4 weeks InformationSp ecimen code = 580-1) of Source: Tissue Specimen incubation. Site: Leg: Left Lower Extremity - [facility] [id number] 05:40:00 Test Item Value Reference Range Interpretation Comments Fungus culture No growth Specimen isolate (test after 4 weeks InformationSp ecimen code = 580-1) of Source: Tissue Specimen incubation. Site: Leg: Left Lower Extremity - [facility] badwfhs1942-49-21 05:40:00 Test Item Value Reference Range Interpretation Comments Fungus culture No growth Specimen isolate (test after 4 weeks InformationSp ecimen code = 580-1) of Source: Tissue Specimen incubation. Site: Leg: Left Lower Extremity - [facility] [id number] 05:40:00 Test Item Value Reference Range Interpretation Comments Fungus culture No growth Specimen isolate (test after 4 weeks InformationSp ecimen code = 580-1) of Source: Tissue Specimen incubation. Site: Leg: Left Lower Extremity - [facility] [id number] 05:40:00 Test Item Value Reference Range Interpretation Comments Fungus culture No growth Specimen isolate (test after 4 weeks InformationSp ecimen code = 580-1) of Source: Tissue Specimen incubation. Site: Leg: Left Lower Extremity [facility]. Metabolic Panel (17703)2022-07-19 03:26:53 Test Item Value Reference Range Interpretation Comments NA (test code = 140 mmol/L 135-145 8671654123) K (test code = 5.3 mmol/L 3.5-5.0 H 6506448458) CL (test code = 101 mmol/L 98-108 2315993884) CO2 TOTAL (test code = 27 mmol/L 23-31 1099433538) AGAP (test code = 12 2-16 9262722616) BUN (test code = 30 mg/dL 7-23 H 3748415181) GLUCOSE (test code = 189 mg/dL 70-110 H 6699047098) CREATININE (test code = 1.24 mg/dL 0.60-1.25 8129593950) TOTAL BILI (test code = 0.4 mg/dL 0.1-1.4 0417938778) CALCIUM (test code = 9.3 mg/dL 8.6-10.6 7381076775) T PROTEIN (test code = 8.0 g/dL 6.3-8.2 0620266357) ALBUMIN (test code = 4.1 g/dL 3.5-5.0 7791566177) ALK PHOS (test code = 107 U/L 34-122 8296886738) ALTv (test code = 43 U/L 5-50 1742-6) AST(SGOT) (test code = 38 U/L 13-40 3692755933) eGFR (test code = 60.5 mL/min/1.73m2 5627120347) MOE (test code = MOE) Association of [...] tests). Lab Interpretation Abnormal (test code = 34820-5) [facility] with [id number] 03:23:09 Test Item Value Reference Range Interpretation Comments WBC (test code = 6.48 See_Comment [Automated 5390-2) message] The sy stem which generated this [...] RDW-SD (test code = 49.0 fL 38.5-51.6 75061-8) RDW-CV (test code = 15.0 % 12.1-15.4 788-0) PLT (test code = 542 See_Comment H [Automated 777-3) message] The sy stem which generated this result transmitted reference range : 150 - 328 10*3/ ?L. The reference r maggi was not used to interpret this result as normal/abnormal . MPV (test code = 9.6 fL 9.8-13.0 L 44432-1) NRBC/100 WBC (test 0.0 See_Comment [Automat ed code = 6897625924) message] The system which generated this result transmitted reference range : 0.0 - 10.0 /100 WBCs. The refer ence range was not u sed to interpret th is result as normal/abnormal . NRBC x10^3 (test code See_Comment [Auto mated = 6886831153) message] The s ystem which generated this result transmitted reference range : 10*3/?L. The reference range was not used to interpret this result as normal/abnormal . GRAN MAT (NEUT) % 60.7 % (test code = 770-8) IMM GRAN % (test code 0.50 % = 5903984674) LYMPH % (test code = 28.2 % 736-9) MONO % (test code = 6.9 % 5905-5) EOS % (test code = 2.5 % 713-8) BASO % (test code = 1.2 % 706-2) GRAN MAT x10^3(ANC) 3.93 10*3/uL 1.99-6.95 (test code = 7042714163) IMM GRAN x10^3 (test 0.03 10*3/uL 0.00-0.06 code = 0643408327) LYMPH x10^3 (test code 1.83 10*3/uL 1.09-3.23 = 731-0) MONO x10^3 (test code 0.45 10*3/uL 0.36-1.02 = 742-7) EOS x10^3 (test code = 0.16 10*3/uL 0.06-0.53 711-2) BASO x10^3 (test code 0.08 10*3/uL 0.01-0.09 = 704-7) Lab Interpretation Abnormal (test code = 81616-3) [facility] [id number] 16:22:00 Test Item Value Reference Range Interpretation Comments POC glucose (test code = 245 mg/dL 65-100 H Ope rator Name: Marilin 17010-0) GarzaDevice ID: [id number] Lab Interpretation (test Abnormal code = 92990-7) [facility] [id number] 16:22:00 Test Item Value Reference Range Interpretation Comments POC glucose (test code = 245 mg/dL 65-100 H Ope rator Name: Marilin 55806-5) GarzaDevice ID: [id number] Lab Interpretation (test Abnormal code = 73631-9) [facility]2023-03-15 16:22:00 Test Item Value Reference Range Interpretation Comments POC glucose (test code = 245 mg/dL 65-100 H Ope rator Name: Marilin 62803-4) GarzaDevice ID: [id number] Lab Interpretation (test Abnormal code = 47835-1) [facility]2023-03-15 16:22:00 Test Item Value Reference Range Interpretation Comments POC glucose (test code = 245 mg/dL 65-100 H Ope rator Name: Marilin 17662-7) [employer]za[employer] ID: [id number] Lab Interpretation (test Abnormal code = 45774-4) [facility]2023-03-15 16:22:00 Test Item Value Reference Range Interpretation Comments POC glucose (test code = 245 mg/dL 65-100 H Ope rator Name: Marilin 20161-6) [employer]za[employer] ID: [id number] Lab Interpretation (test Abnormal code = 77330-7) [facility]2023-03-15 16:22:00 Test Item Value Reference Range Interpretation Comments POC glucose (test code = 245 mg/dL 65-100 H Ope rator Name: Marilin 98316-8) [employer] ID: [id number] Lab Interpretation (test Abnormal code = 85027-0) [facility]2023-03-15 16:22:00 Test Item Value Reference Range Interpretation Comments POC glucose (test code = 245 mg/dL 65-100 H Ope rator Name: Marilin 68907-1) [employer] ID: [id number] Lab Interpretation (test Abnormal code = 65993-9) [facility]2023-03-15 16:22:00 Test Item Value Reference Range Interpretation Comments POC glucose (test code = 245 mg/dL 65-100 H Ope rator Name: Marilin 84189-8) [employer] ID: [id number] Lab Interpretation (test Abnormal code = 61012-6) [facility] [id number] 16:22:00 Test Item Value Reference Range Interpretation Comments POC glucose (test code = 245 mg/dL 65-100 H Ope rator Name: Marilin 80273-5) [employer] ID: [id number] Lab Interpretation (test Abnormal code = 05697-5) [facility]2023-03-15 16:22:00 Test Item Value Reference Range Interpretation Comments POC glucose (test code = 245 mg/dL 65-100 H Ope rator Name: Marilin 49991-2) [employer] ID: [id number] Lab Interpretation (test Abnormal code = 70407-2) [facility]2023-03-15 16:22:00 Test Item Value Reference Range Interpretation Comments POC glucose (test code = 245 mg/dL 65-100 H Ope rator Name: Marilin 86076-4) [employer] ID: [id number] Lab Interpretation (test Abnormal code = 73281-2) [facility]2023-03-15 16:22:00 Test Item Value Reference Range Interpretation Comments POC glucose (test code = 245 mg/dL 65-100 H Ope rator Name: Marilin 73094-7) [employer] ID: [id number] Lab Interpretation (test Abnormal code = 25442-2) [facility]2023-03-15 16:22:00 Test Item Value Reference Range Interpretation Comments POC glucose (test code = 245 mg/dL 65-100 H Ope rator Name: Marilin 98767-7) [employer] ID: [id number] Lab Interpretation (test Abnormal code = 67865-5) [facility]2023-03-15 16:22:00 Test Item Value Reference Range Interpretation Comments POC glucose (test code = 245 mg/dL 65-100 H Ope rator Name: Marilin [id number]) GarzaDevice ID: [id number] Lab Interpretation (test Abnormal code = 34930-3) [facility] [id number] 16:22:00 Test Item Value Reference Range Interpretation Comments POC glucose (test code = 245 mg/dL 65-100 H Ope rator Name: Marilin [id number]) Connor ID: [id number] Lab Interpretation (test Abnormal code = 67624-6) [id number] 19:17:00 Test Item Value Reference Range Interpretation Comments IMP PCR (test NOT DETECTED Specimen Infor mationSpecimen code = Source: [facility] Site: 18380-8) Tissue [id number] OXA-48 PCR NOT DETECTED (test code = 8006) [facility] [id number] 19:17:00 Test Item Value Reference Range Interpretation Comments IMP PCR (test NOT DETECTED Specimen Infor mationSpecimen code = Source: [facility] Site: 18639-1) Tissue [id number] 07 OXA-48 PCR NOT DETECTED (test code = 8006) [facility] [id number] 19:17:00 Test Item Value Reference Range Interpretation Comments IMP PCR (test NOT DETECTED Specimen Infor mationSpecimen code = Source: [facility] Site: 21190-8) Tissue [id number] OXA-48 PCR NOT DETECTED (test code = 8006) [facility] [id number] 19:17:00 Test Item Value Reference Range Interpretation Comments IMP PCR (test NOT DETECTED Specimen Infor mationSpecimen code = Source: [facility] Site: 82403-1) Tissue [id number] OXA-48 PCR NOT DETECTED (test code = 8006) [facility] [id number] 19:17:00 Test Item Value Reference Range Interpretation Comments IMP PCR (test NOT DETECTED Specimen Infor mationSpecimen code = Source: [facility] Site: 44273-3) Tissue [id number] 07 OXA-48 PCR NOT DETECTED (test code = 8006) [facility] [id number] 19:17:00 Test Item Value Reference Range Interpretation Comments IMP PCR (test NOT DETECTED Specimen Infor mationSpecimen code = Source: [facility] Site: 63748-5) Tissue [id number] 07 OXA-48 PCR NOT DETECTED (test code = 8006) [facility] [id number] 19:17:00 Test Item Value Reference Range Interpretation Comments IMP PCR (test NOT DETECTED Specimen Infor mationSpecimen code = Source: [facility] Site: 24329-4) Tissue [id number] 07 OXA-48 PCR NOT DETECTED (test code = 8006) [facility] [id number] 19:17:00 Test Item Value Reference Range Interpretation Comments IMP PCR (test NOT DETECTED Specimen Infor mationSpecimen code = Source: [facility] Site: 77416-0) Tissue [id number] 07 OXA-48 PCR NOT DETECTED (test code = 8006) [facility] [id number] 19:17:00 Test Item Value Reference Range Interpretation Comments IMP PCR (test NOT DETECTED Specimen Infor mationSpecimen code = Source: [facility] Site: 15302-7) Tissue [id number] 07 OXA-48 PCR NOT DETECTED (test code = 8006) [facility] [id number] 19:17:00 Test Item Value Reference Range Interpretation Comments IMP PCR (test NOT DETECTED Specimen Infor mationSpecimen code = Source: [facility] Site: 74614-0) Tissue [id number] 07 OXA-48 PCR NOT DETECTED (test code = 8006) [facility] [id number] 19:17:00 Test Item Value Reference Range Interpretation Comments IMP PCR (test NOT DETECTED Specimen Infor mationSpecimen code = Source: [facility] Site: 78122-8) Tissue [id number] 07 OXA-48 PCR NOT DETECTED (test code = 8006) [facility] [id number] 19:17:00 Test Item Value Reference Range Interpretation Comments IMP PCR (test NOT DETECTED Specimen Infor mationSpecimen code = Source: [facility] Site: 87802-0) Tissue [id number] 07 OXA-48 PCR NOT DETECTED (test code = 8006) [facility] [id number] 19:17:00 Test Item Value Reference Range Interpretation Comments IMP PCR (test NOT DETECTED Specimen Infor mationSpecimen code = Source: [facility] Site: 12352-2) Tissue [id number] OXA-48 PCR NOT DETECTED (test code = 8006) [facility] [id number] 19:17:00 Test Item Value Reference Range Interpretation Comments IMP PCR (test NOT DETECTED Specimen Infor mationSpecimen code = Source: [facility] Site: 66841-7) Tissue [id number] 07 OXA-48 PCR NOT DETECTED (test code = 8006) [facility] [id number] 19:17:00 Test Item Value Reference Range Interpretation Comments IMP PCR (test NOT DETECTED Specimen Infor mationSpecimen code = Source: [facility] Site: 16071-9) Tissue [id number] 07 OXA-48 PCR NOT DETECTED (test code = 8006) [facility] [id number] 13:15:00 Test Item Value Reference Range Interpretation Comments Anaerobic No anaerobic Specimen culture isolate organisms InformationS pecimen (test code = isolated. Source: TissueS pecimen 89651-4) Site: Leg: Left Lower Extremity - Cul ture [facility] [id number] 13:15:00 Test Item Value Reference Range Interpretation Comments Anaerobic No anaerobic Specimen culture isolate organisms InformationS pecimen (test code = isolated. Source: TissueS pecimen 16242-6) Site: Leg: Left Lower Extremity - Cul ture [facility] [id number] 13:15:00 Test Item Value Reference Range Interpretation Comments Anaerobic No anaerobic Specimen culture isolate organisms InformationS pecimen (test code = isolated. Source: TissueS pecimen 98830-8) Site: Leg: Left Lower Extremity - Cul ture [facility] [id number] 13:15:00 Test Item Value Reference Range Interpretation Comments Anaerobic No anaerobic Specimen culture isolate organisms InformationS pecimen (test code = isolated. Source: TissueS pecimen 48999-7) Site: Leg: Left Lower Extremity - Cul ture [facility] [id number] 13:15:00 Test Item Value Reference Range Interpretation Comments Anaerobic No anaerobic Specimen culture isolate organisms InformationS pecimen (test code = isolated. Source: TissueS pecimen 65513-1) Site: Leg: Left Lower Extremity - [place] 590423-03-13 13:15:00 Test Item Value Reference Range Interpretation Comments Anaerobic No anaerobic Specimen culture isolate organisms InformationS pecimen (test code = isolated. Source: TissueS pecimen 93104-7) Site: Leg: Left Lower Extremity - [place] 590423-03-13 13:15:00 Test Item Value Reference Range Interpretation Comments Anaerobic No anaerobic Specimen culture isolate organisms InformationS pecimen (test code = isolated. Source: TissueS pecimen 10288-3) Site: Leg: Left Lower Extremity - [place] 590423-03-13 13:15:00 Test Item Value Reference Range Interpretation Comments Anaerobic No anaerobic Specimen culture isolate organisms InformationS pecimen (test code = isolated. Source: TissueS pecimen 37441-6) Site: Leg: Left Lower Extremity [place] 540203-03-13 13:15:00 Test Item Value Reference Range Interpretation Comments Anaerobic No anaerobic Specimen culture isolate organisms InformationS pecimen (test code = isolated. Source: TissueS pecimen 56436-8) Site: Leg: Left Lower Extremity [place] 540203-03-13 13:15:00 Test Item Value Reference Range Interpretation Comments Anaerobic No anaerobic Specimen culture isolate organisms InformationS pecimen (test code = isolated. Source: TissueS pecimen 38404-3) Site: Leg: Left Lower Extremity - [place] 590423-03-13 13:15:00 Test Item Value Reference Range Interpretation Comments Anaerobic No anaerobic Specimen culture isolate organisms InformationS pecimen (test code = isolated. Source: TissueS pecimen 89934-1) Site: Leg: Left Lower Extremity [place] 540203-03-13 13:15:00 Test Item Value Reference Range Interpretation Comments Anaerobic No anaerobic Specimen culture isolate organisms InformationS pecimen (test code = isolated. Source: TissueS pecimen 77111-8) Site: Leg: Left Lower Extremity - [place] 590423-03-13 13:15:00 Test Item Value Reference Range Interpretation Comments Anaerobic No anaerobic Specimen culture isolate organisms InformationS pecimen (test code = isolated. Source: [facility] 38886-6[facility] Site: Leg: Left Lower Extremity - [facility] [id number] 13:15:00 Test Item Value Reference Range Interpretation Comments Anaerobic No anaerobic Specimen culture isolate organisms InformationS pecimen (test code = isolated. Source: [facility] 47674-2) Site: Leg: Left Lower Extremity - [facility] [id number] 13:15:00 Test Item Value Reference Range Interpretation Comments Anaerobic No anaerobic Specimen culture isolate organisms InformationS pecimen (test code = isolated. Source: [facility] 13401-6) Site: Leg: Left Lower Extremity - [facility]2023-03-11 14:49:00 Test Item Value Reference Range Interpretation Comments AFB stain No acid fast Specimen (test code = bacilli (AFB) InformationSpe cimen 676-7) seen. Source: [facility] Site: Leg: Left Lower Extremity [facility] [id number] 14:49:00 Test Item Value Reference Range Interpretation Comments AFB stain No acid fast Specimen (test code = bacilli (AFB) InformationSpe cimen 676-7) seen. Source: [facility] Site: Leg: Left Lower Extremity - [facility] [id number] 14:49:00 Test Item Value Reference Range Interpretation Comments AFB stain No acid fast Specimen (test code = bacilli (AFB) InformationSpe cimen 676-7) seen. Source: [facility] Site: Leg[facility] [id number] 14:49:00 Test Item Value Reference Range Interpretation Comments AFB stain No acid fast Specimen (test code = bacilli (AFB) InformationSpe cimen 676-7) seen. Source: [facility] Site: Leg: [facility] [id number] 14:49:00 Test Item Value Reference Range Interpretation Comments AFB stain No acid fast Specimen (test code = bacilli (AFB) InformationSpe cimen 676-7) seen. Source: [facility] Site: Leg: Left Lower Extremity - [facility] [id number] 14:49:00 Test Item Value Reference Range Interpretation Comments AFB stain No acid fast Specimen (test code = bacilli (AFB) InformationSpe cimen 676-7) seen. Source: [facility] Site: Leg: Left Lower Extremity - [facility] [id number] 14:49:00 Test Item Value Reference Range Interpretation Comments AFB stain No acid fast Specimen (test code = bacilli (AFB) InformationSpe cimen 676-7) seen. Source: [facility] Site: Leg: Left Lower Extremity - [facility] [id number] 14:49:00 Test Item Value Reference Range Interpretation Comments AFB stain No acid fast Specimen (test code = bacilli (AFB) InformationSpe cimen 676-7) seen. Source: [facility] Site: Leg: Left Lower Extremity - [facility] [id number] 14:49:00 Test Item Value Reference Range Interpretation Comments AFB stain No acid fast Specimen (test code = bacilli (AFB) InformationSpe cimen 676-7) seen. Source: [facility] Site: Leg: Left Lower Extremity - [facility]2023-03-11 14:49:00 Test Item Value Reference Range Interpretation Comments AFB stain No acid fast Specimen (test code = bacilli (AFB) InformationSpe cimen 676-7) seen. Source: [facility] Site: Leg: [facility] [id number] 14:49:00 Test Item Value Reference Range Interpretation Comments AFB stain No acid fast Specimen (test code = bacilli (AFB) InformationSpe cimen 676-7) seen. Source: [facility] Site: Leg: [facility] [id number] 14:49:00 Test Item Value Reference Range Interpretation Comments AFB stain No acid fast Specimen (test code = bacilli (AFB) InformationSpe cimen 676-7) seen. Source: [facility] Site: Leg: Left Lower Extremity - Cul [facility]ure [facility] [id number] 14:49:00 Test Item Value Reference Range Interpretation Comments AFB stain No acid fast Specimen (test code = bacilli (AFB) InformationSpe cimen 676-7) seen. Source: [facility] Site: Leg: Left Lower Extremity - Cul ture [facility] [id number] 14:49:00 Test Item Value Reference Range Interpretation Comments AFB stain No acid fast Specimen (test code = bacilli (AFB) InformationSpe cimen 676-7) seen. Source: [facility] Site: Leg: Left Lower Extremity - Cul ture [facility] [id number] 14:49:00 Test Item Value Reference Range Interpretation Comments AFB stain No acid fast Specimen (test code = bacilli (AFB) InformationSpe cimen 676-7) seen. Source: [facility] Site: Leg: Left Lower Extremity - Cul ture [facility] [id number] 18:08:00 Test Item Value Reference Range Interpretation Comments Fungus smear No fungi Specimen (test code = observed. VenJuvo Source: 1443) [facility] Site: Leg: Left Lower Extr emity - Culture [facility] [id number] 18:08:00 Test Item Value Reference Range Interpretation Comments Fungus smear No fungi Specimen (test code = observed. VenJuvo Source: 1440) [facility] Site: Leg: Left Lower Extr emity - Culture [facility] [id number] 18:08:00 Test Item Value Reference Range Interpretation Comments Fungus smear No fungi Specimen (test code = observed. VenJuvo Source: 1443) [facility] Site: Leg: Left Lower Extr emity - Culture [facility] [id number] 18:08:00 Test Item Value Reference Range Interpretation Comments Fungus smear No fungi Specimen (test code = observed. VenJuvo Source: 1443) [facility] Site: Leg: Left Lower Extr emity - Culture [facility] [id number] 18:08:00 Test Item Value Reference Range Interpretation Comments Fungus smear No fungi Specimen (test code = observed. VenJuvo Source: 1443) [facility] Site: Leg: Left Lower Extr emity - Culture [facility] [id number] 18:08:00 Test Item Value Reference Range Interpretation Comments Fungus smear No fungi Specimen (test code = observed. InformationApontador Source: 1443) [facility] Site: Leg: Left Lower Extr emity - Culture [facility] [id number] 18:08:00 Test Item Value Reference Range Interpretation Comments Fungus smear No fungi Specimen (test code = observed. InformationApontador Source: 1443) [facility] Site: Leg: Left Lower Extr emity - Culture [facility] [id number] 18:08:00 Test Item Value Reference Range Interpretation Comments Fungus smear No fungi Specimen (test code = observed. InformationApontador Source: 1443) [facility] Site: Leg: Left Lower Extr emity - Culture [facility] [id number] 18:08:00 Test Item Value Reference Range Interpretation Comments Fungus smear No fungi Specimen (test code = observed. InformationApontador Source: 1443) [facility] Site: Leg: Left Lower Extr emity - Culture [facility] [id number] 18:08:00 Test Item Value Reference Range Interpretation Comments Fungus smear No fungi Specimen (test code = observed. VenJuvo Source: 1443) [facility] Site: Leg: Left Lower Extr emity - Culture [facility] [id number] 18:08:00 Test Item Value Reference Range Interpretation Comments Fungus smear No fungi Specimen (test code = observed. VenJuvo Source: 1443) [facility] Site: Leg: Left Lower Extr emity - Culture [facility] [id number] 18:08:00 Test Item Value Reference Range Interpretation Comments Fungus smear No fungi Specimen (test code = observed. VenJuvo Source: 1443) [facility] Site: Leg: Left Lower Extr emity - Culture [facility] [id number] 18:08:00 Test Item Value Reference Range Interpretation Comments Fungus smear No fungi Specimen (test code = observed. InformationApontador Source: 1443) [facility] Site: Leg: Left Lower Extr emity - Culture [facility] [id number] 18:08:00 Test Item Value Reference Range Interpretation Comments Fungus smear No fungi Specimen (test code = observed. InformationSpec imen Source: 1443) [facility] Site: Leg: Left Lower Extr emity - Culture [facility] [id number] 18:08:00 Test Item Value Reference Range Interpretation Comments Fungus smear No fungi Specimen (test code = observed. InformationSpec imen Source: 1443) [facility] Site: Leg: Left Lower Extr emity - [facility] [id number] 17:14:00 Test Item Value Reference Range Interpretation Comments Gram stain Few Gram Specimen isolate (test negative rods InformationSp ecimen code = 1469) Source: [facility] Site: Leg: Left Lower Extremity - [facility] [id number] 17:14:00 Test Item Value Reference Range Interpretation Comments Gram stain Few Gram Specimen isolate (test negative rods InformationSp ecimen code = 1469) Source: [facility] Site: Leg: Left Lower Extremity - [facility] [id number] 17:14:00 Test Item Value Reference Range Interpretation Comments Gram stain Few Gram Specimen isolate (test negative rods InformationSp ecimen code = 1469) Source: [facility] Site: Leg: Left Lower Extremity - [facility] [id number] 17:14:00 Test Item Value Reference Range Interpretation Comments Gram stain Few Gram Specimen isolate (test negative rods InformationSp ecimen code = 1469) Source: [facility] Site: Leg: Left Lower Extremity - [facility] [id number] 17:14:00 Test Item Value Reference Range Interpretation Comments Gram stain Few Gram Specimen isolate (test negative rods InformationSp ecimen code = 1469) Source: [facility] Site: Leg: Left Lower Extremity - Cul [facility] [id number] 17:14:00 Test Item Value Reference Range Interpretation Comments Gram stain Few Gram Specimen isolate (test negative rods InformationSp ecimen code = 1469) Source: [facility] Site: Leg: Left Lower Extremity - Cul [facility] [id number] 17:14:00 Test Item Value Reference Range Interpretation Comments Gram stain Few Gram Specimen isolate (test negative rods InformationSp ecimen code = 1469) Source: [facility] Site: Leg: Left Lower Extremity - [facility]2023-03-09 17:14:00 Test Item Value Reference Range Interpretation Comments Gram stain Few Gram Specimen isolate (test negative rods InformationSp ecimen code = 1469) Source: [facility] Site: Leg: Left Lower Extremity - [facility]2023-03-09 17:14:00 Test Item Value Reference Range Interpretation Comments Gram stain Few Gram Specimen isolate (test negative rods InformationSp ecimen code = 1469) Source: [facility] Site: Leg: Left Lower Extremity [facility]2023-03-09 17:14:00 Test Item Value Reference Range Interpretation Comments Gram stain Few Gram Specimen isolate (test negative rods InformationSp ecimen code = 1469) Source: [facility] Site: Leg: Left Lower Extremity [facility]2023-03-09 17:14:00 Test Item Value Reference Range Interpretation Comments Gram stain Few Gram Specimen isolate (test negative rods InformationSp ecimen code = 1469) Source: [facility] Site: Leg: Left Lower Extremity [facility]2023-03-09 17:14:00 Test Item Value Reference Range Interpretation Comments Gram stain Few Gram Specimen isolate (test negative rods InformationSp ecimen code = 1469) Source: [facility] Site: Leg: Left Lower Extremity [facility] [id number] 17:14:00 Test Item Value Reference Range Interpretation Comments Gram stain Few Gram Specimen isolate (test negative rods InformationSp ecimen code = 1469) Source: [facility] Site: Leg: Left Lower Extremity [facility] [id number] 17:14:00 Test Item Value Reference Range Interpretation Comments Gram stain Few Gram Specimen isolate (test negative rods InformationSp ecimen code = 1469) Source: [facility] Site: Leg: Left Lower Extremity [facility] [id number] 17:14:00 Test Item Value Reference Range Interpretation Comments Gram stain Few Gram Specimen isolate (test negative rods InformationSp ecimen code = 1469) [facility] [id number] 22:46:05 Test Item Value Reference Range Interpretation Comments Case number (test code = [id number]) Surgical pathology See link below for report (test code = PDF Lab Report 2255) Result status (test code This is Final Report = [id number]) for [address] pathology [id number] 22:46:05 Test Item Value Reference Range Interpretation Comments Case number (test code = [id number]) Surgical pathology See link below for report (test code = PDF Lab Report 2255) Result status (test code This is Final Report = [id number]) for [address] pathology [id number] 22:46:05 Test Item Value Reference Range Interpretation Comments Case number (test code = [id number]) Surgical pathology See link below for report (test code = PDF Lab Report 2255) Result status (test code This is Final Report = [id number]) for [address] pathology [id number] 22:46:05 Test Item Value Reference Range Interpretation Comments Case number (test code = [id number]) Surgical pathology See link below for report (test code = PDF Lab Report 2255) Result status (test code This is Final Report = [id number]) for [address] pathology [id number] 22:46:05 Test Item Value Reference Range Interpretation Comments Case number (test code = [id number]) Surgical pathology See link below for report (test code = PDF Lab Report 2255) Result status (test code This is Final Report = [id number]) for [address] pathology [id number] 22:46:05 Test Item Value Reference Range Interpretation Comments Case number (test code = [id number]) Surgical pathology See link below for report (test code = PDF Lab Report 2255) Result status (test code This is Final Report = [id number]) for [address] pathology [id number] 22:46:05 Test Item Value Reference Range Interpretation Comments Case number (test code = [id number]) Surgical pathology See link below for report (test code = PDF Lab Report 2255) Result status (test code This is Final Report = [id number]) for [address] pathology [id number] 22:46:05 Test Item Value Reference Range Interpretation Comments Case number (test code = [id number]) Surgical pathology See link below for report (test code = PDF Lab Report 2255) Result status (test code This is Final Report = [id number]) for [address] pathology [id number] 22:46:05 Test Item Value Reference Range Interpretation Comments Case number (test code = [id number]) Surgical pathology See link below for report (test code = PDF Lab Report 2255) Result status (test code This is Final Report = [id number]) for [address] pathology [id number] 22:46:05 Test Item Value Reference Range Interpretation Comments Case number (test code = [id number]) Surgical pathology See link below for report (test code = PDF Lab Report 2255) Result status (test code This is Final Report = [id number]) for [address] pathology [id number] 22:46:05 Test Item Value Reference Range Interpretation Comments Case number (test code = [id number]) Surgical pathology See link below for report (test code = PDF Lab Report 2255) Result status (test code This is Final Report = [id number]) for [address] pathology [id number] 22:46:05 Test Item Value Reference Range Interpretation Comments Case number (test code = [id number]) Surgical pathology See link below for report (test code = PDF Lab Report 2255) Result status (test code This is Final Report = [id number]) for [address] pathology [id number] 22:46:05 Test Item Value Reference Range Interpretation Comments Case number (test code = [id number]) Surgical pathology See link below for report (test code = PDF Lab Report 2255) Result status (test code This is Final Report = [id number]) [id number] [id number] 22:46:05 Test Item Value Reference Range Interpretation Comments Case number (test code = [id number]) Surgical pathology See link below for report (test code = PDF Lab Report 2255) Result status (test code This is Final Report = [id number]) [facility] [id number] [facility] [id number] 22:46:05 Test Item Value Reference Range Interpretation Comments Case number (test code = [id number]) Surgical pathology See link below for report (test code = PDF Lab Report 2255) Result status (test code This is Final Report = [id number]) [facility] [id number] [facility], (w Contrast, Strain and 3D if needed)2022-05-10 21:23:23 Test Item Value Reference Interpretation Comments Range Ao Root Diameter 3.34 cm (test code = 6608023526) AoV Area, Vmax (test 3.02 cm2 >=1.5 [Autom ated code = 4527127322) message] The system which generated this result transmitted reference range : >=1.5. The reference range was not used to interpret this result as normal/abnormal . AoV Area, VTI (test 3.07 cm2 code = 0363953262) AoV Mean PG (test 4.26 mmHg code = 4544686651) AoV Peak PG (test 6.38 mmHg code = 9696052503) AoV Vmax (test code 1.42 m/s = 2555061593) AoV VTI (test code = 0.26 m 7356385107) BSA Rashid (test code 2.11 m2 = 8845542604) BSA (test code = 2.02 m2 5255227065) IVS,d (test code = 0.84 cm 0.6-1 0751022631) IVS/LVPW,2D (test 0.98 code = 8207285801) Left Atrium 3.49 cm Dimension Anterior (test code = 9422405670) LV,d (test code = 4.74 cm 9502337170) LV EF,2D (test code 64.34 % = 0444157495) LV,s (test code = 3.36 cm 6535034258) LVOT area (test code 3.53 cm2 = 7683232906) LVOT Diam,S (test 2.12 cm code = 4594693217) LVOT Vmax (test code 1.13 m/s = 9475858618) LVOT VTI (test code 0.21 m = 3154436971) LVPWD,d (test code = 0.85 cm 0.60-1.19 0686428148) MV E A ratio (test 0.86 code = 5687199656) AoV area i VTI BSA 1.52 cm2/m2 >=0.85 [Automat ed Person (test code = message] The 3099889686) system which generated this result transmitted reference range : >=0.85. The reference range was not used to interpret this result as normal/abnormal . BMI (test code = 31.32 kg/m2 9633208208) E wave decelartion 89.56 See_Comment A [Automat ed time (test code = message] T he 5585809377) system which generated this result transmitted reference range : 200 msec. The reference range was not used to interpret this result as normal/abnormal . MV Peak A Sander (test 0.88 m/s code = 4913704505) MV valve area p 1/2 8.47 cm2 method (test code = 4663497977) MV Peak E Sander (test 0.75 m/s code = 6812772382) MV stenosis pressure 25.97 ms 1/2 time (test code = 7157054698) LVOT stroke volume 0.74 ml (test code = 0039430622) AV LVOT peak 4.69 mmHg gradient (test code = 6659782897) Ao Root Diameter 3.34 cm (test code = 2913415883) MV mean gradient 1.92 mmHg (test code = 3095191832) LV SYS VOL (test 46.16 ml 21-61 code = 1210031911) LV ANDERSON VOL (test 104.46 ml 62-150 code = 8515666474) LA area s A4C (test 17.60 cm2 code = 0693042214) LV SI Teich 2D (test 28.83 ml/m2 code = 5926204551) LV SV Teich 2D (test 58.30 ml code = 7984658431) LV Vol s Teich PSAX 46.16 ml (test code = 2672175175) LVOT CI (test code = 3.53 l/min/m2 5382185016) LVOT CO (test code = 7.14 l/min 5595596175) LVOT HR for LVOT CO 98.89 bpm (test code = 4322749085) LVOT SI (test code = 35.72 ml/m2 2670843806) MR peak grad (test 3.00 mmHg code = 1486884023) MV Vmax (test code = 0.87 m 8297553870) MV VTI Tips (test 0.14 m code = 7231772701) BSA Haycock (test 2.10 m2 code = 8945425533) AoV Vmn (test code = 0.97 m/s 9189860038) IVS s 2D (test code 1.17 cm = 3233163620) LV FS Teich 2D (test 29.09 code = 9121317403) MV AE ratio (test 1.17 code = 1336642849) LV FS Cube 2D (test 29.09 code = 5365446334) LVOT Vmn (test code 0.75 = 7066794448) Pt Size (test code = 170.18 8695590328) Pt Wt (test code = 90.72 0867951241) Aov area Vmn (test 3.05 cm2 code = 5056574932) LVOT mean grad (test 2.57 mmHg code = 0965077986) 85 of MPHR (test 140.25 code = 7621432587) AoV area I VMN bsa 1.51 cm2/m2 (test code = 4449478765) Calc MPHR (test code 165.01 bpm = 7110180424) IVS pct thck PLAX 39.76 % (test code = 3257562643) LV SI Cube 2D (test 33.91 ml/m2 code = 4805209907) LV SV Cube 2D (test 68.57 ml code = 8534770673) LV vol d cube 2D 106.56 ml (test code = 0120106542) LV vol s cube 2D 38.00 ml (test code = 3456268326) LVPW pct thck PLAX 35.24 % (test code = 9282461216) LVPW s PLAX (test 1.16 cm code = 5934939768) MV Decel slope (test 8.38 m/s2 code = 5759578960) Pred Exer Dur R1 9.48 (test code = 0253934563) Pred METS R1 (test 9.75 code = 5830781014) LA Vol MOD A4C (test 46.56 ml code = 1879870915) Velocity Ratio 0.80 m/s (V1/V2) (test code = 4689) EF (test code = 56 % 3376310956) E/A ratio (test code 0.85 = 4181894741) LVOT VTI (CM) (test 21.00 cm code = 0706566918) MOE (test code = MOE) Left Ventricle: [...] normal. Lab Interpretation Abnormal (test code = 28389-7) Ao Root Diameter 3.34 cm (test code = 4635119414) AoV Area, Vmax (test 3.02 cm2 >=1.5 code = 3893167230) AoV Area, VTI (test 3.07 cm2 code = 8824668710) AoV Mean PG (test 4.26 mmHg code = 1616489280) AoV Peak PG (test 6.38 mmHg code = 6620981929) AoV Vmax (test code 1.42 m/s = 6720913440) AoV VTI (test code = 0.26 m 2466057784) BSA Rashid (test code 2.11 m2 = 9130032779) BSA (test code = 2.02 m2 6932978889) IVS,d (test code = 0.84 cm 0.6-4 4759802084) IVS/LVPW,2D (test 0.98 code = 5830818173) Left Atrium 3.49 cm Dimension Anterior (test code = 2391416181) LV,d (test code = 4.74 cm 3627639696) LV EF,2D (test code 64.34 % = 3129665307) LV,s (test code = 3.36 cm 8732962871) LVOT area (test code 3.53 cm2 = 7358666358) LVOT Diam,S (test 2.12 cm code = 6923109941) LVOT Vmax (test code 1.13 m/s = 8672117340) LVOT VTI (test code 0.21 m = 7655601029) LVPWD,d (test code = 0.85 cm 0.60-1.19 9750466779) MV E A ratio (test 0.86 code = 7918389329) AoV area i VTI BSA 1.52 cm2/m2 >=0.85 Person (test code = 6045263074) BMI (test code = 31.32 kg/m2 9256670049) E wave decelartion 89.56 See_Comment A [Automat ed time (test code = message] T he 9917993772) system which generated this result transmitted reference range : 200 msec. The reference range was not used to interpret this result as normal/abnormal . MV Peak A Sander (test 0.88 m/s code = 4421252392) MV valve area p 1/2 8.47 cm2 method (test code = 9195557811) MV Peak E Sander (test 0.75 m/s code = 1901568572) MV stenosis pressure 25.97 ms 1/2 time (test code = 7579406818) LVOT stroke volume 0.74 ml (test code = 6639937397) AV LVOT peak 4.69 mmHg gradient (test code = 2138716211) Ao Root Diameter 3.34 cm (test code = 2771515862) MV mean gradient 1.92 mmHg (test code = 0225441463) LV SYS VOL (test 46.16 ml 21-61 code = 9342747656) LV ANDERSON VOL (test 104.46 ml 62-150 code = 5524292456) LA area s A4C (test 17.60 cm2 code = 0236124681) LV SI Teich 2D (test 28.83 ml/m2 code = 2138070370) LV SV Teich 2D (test 58.30 ml code = 7543302537) LV Vol s Teich PSAX 46.16 ml (test code = 1359468223) LVOT CI (test code = 3.53 l/min/m2 0690951087) LVOT CO (test code = 7.14 l/min 8480414043) LVOT HR for LVOT CO 98.89 bpm (test code = 2080013534) LVOT SI (test code = 35.72 ml/m2 5056903074) MR peak grad (test 3.00 mmHg code = 4469574879) MV Vmax (test code = 0.87 m 3291507797) MV VTI Tips (test 0.14 m code = 6329331927) BSA Haycock (test 2.10 m2 code = 1273590280) AoV Vmn (test code = 0.97 m/s 2440800234) IVS s 2D (test code 1.17 cm = 0611120733) LV FS Teich 2D (test 29.09 code = 8130129957) MV AE ratio (test 1.17 code = 3397509217) LV FS Cube 2D (test 29.09 code = 9186669490) LVOT Vmn (test code 0.75 = 9751441869) Pt Size (test code = 170.18 1161320218) Pt Wt (test code = 90.72 2333139389) Aov area Vmn (test 3.05 cm2 code = 9224403047) LVOT mean grad (test 2.57 mmHg code = 8735282028) 85 of MPHR (test 140.25 code = 3946153467) AoV area I VMN bsa 1.51 cm2/m2 (test code = 6388776329) Calc MPHR (test code 165.01 bpm = 8331775090) IVS pct thck PLAX 39.76 % (test code = 0317861953) LV SI Cube 2D (test 33.91 ml/m2 code = 9673171513) LV SV Cube 2D (test 68.57 ml code = 8731361210) LV vol d cube 2D 106.56 ml (test code = 6132379683) LV vol s cube 2D 38.00 ml (test code = 0300064587) LVPW pct thck PLAX 35.24 % (test code = 0088939705) LVPW s PLAX (test 1.16 cm code = 9765493720) MV Decel slope (test 8.38 m/s2 code = 1883620606) Pred Exer Dur R1 9.48 (test code = 7076022609) Pred METS R1 (test 9.75 code = 3405105874) LA Vol MOD A4C (test 46.56 ml code = 9208972877) Velocity Ratio 0.80 m/s (V1/V2) (test code = 4689) EF (test code = 56 % 9782849079) E/A ratio (test code 0.85 = 9896480711) LVOT VTI (CM) (test 21.00 cm code = 7121097537) MOE (test code = MOE) Left Ventricle: [...] 1.00The left ventricular wall motion is normal. [facility] (w Contrast, Strain and 3D if needed)2022-05-10 21:23:23 Test Item Value Reference Interpretation Comments Range Ao Root Diameter 3.34 cm (test code = 3968017477) AoV Area, Vmax (test 3.02 cm2 >=1.5 code = 6186493022) AoV Area, VTI (test 3.07 cm2 code = 2971782498) AoV Mean PG (test 4.26 mmHg code = 2704274994) AoV Peak PG (test 6.38 mmHg code = 8034863793) AoV Vmax (test code 1.42 m/s = 3397791842) AoV VTI (test code = 0.26 m 6716161595) BSA Rashid (test code 2.11 m2 = 5553118746) BSA (test code = 2.02 m2 4748561154) IVS,d (test code = 0.84 cm 0.6-2 2172022772) IVS/LVPW,2D (test 0.98 code = 1464204821) Left Atrium 3.49 cm Dimension Anterior (test code = 0318008377) LV,d (test code = 4.74 cm 2844267038) LV EF,2D (test code 64.34 % = 4451847024) LV,s (test code = 3.36 cm 9269183156) LVOT area (test code 3.53 cm2 = 5046986811) LVOT Diam,S (test 2.12 cm code = 2783291068) LVOT Vmax (test code 1.13 m/s = 9995823635) LVOT VTI (test code 0.21 m = 4675283751) LVPWD,d (test code = 0.85 cm 0.60-1.19 0916701228) MV E A ratio (test 0.86 code = 5149719548) AoV area i VTI BSA 1.52 cm2/m2 >=0.85 Person (test code = 5124175896) BMI (test code = 31.32 kg/m2 7515309687) E wave decelartion 89.56 See_Comment A [Automat ed time (test code = message] T he 6551948814) system which generated this result transmitted reference range : 200 msec. The reference range was not used to interpret this result as normal/abnormal . MV Peak A Sander (test 0.88 m/s code = 8761266960) MV valve area p 1/2 8.47 cm2 method (test code = 1163326416) MV Peak E Sander (test 0.75 m/s code = 2158374582) MV stenosis pressure 25.97 ms 1/2 time (test code = 6577744387) LVOT stroke volume 0.74 ml (test code = 5283900231) AV LVOT peak 4.69 mmHg gradient (test code = 7945024809) Ao Root Diameter 3.34 cm (test code = 1834739980) MV mean gradient 1.92 mmHg (test code = 7942792463) LV SYS VOL (test 46.16 ml 21-61 code = 9628135543) LV ANDERSON VOL (test 104.46 ml 62-150 code = 2674472263) LA area s A4C (test 17.60 cm2 code = 6692091344) LV SI Teich 2D (test 28.83 ml/m2 code = 9793480670) LV SV Teich 2D (test 58.30 ml code = 2331848431) LV Vol s Teich PSAX 46.16 ml (test code = 4230824050) LVOT CI (test code = 3.53 l/min/m2 2656161615) LVOT CO (test code = 7.14 l/min 8972659279) LVOT HR for LVOT CO 98.89 bpm (test code = 5580679668) LVOT SI (test code = 35.72 ml/m2 4198869058) MR peak grad (test 3.00 mmHg code = 7132183809) MV Vmax (test code = 0.87 m 4436493898) MV VTI Tips (test 0.14 m code = 3165982069) BSA Haycock (test 2.10 m2 code = 7832349846) AoV Vmn (test code = 0.97 m/s 3465207484) IVS s 2D (test code 1.17 cm = 8735131715) LV FS Teich 2D (test 29.09 code = 2978745444) MV AE ratio (test 1.17 code = 6287216202) LV FS Cube 2D (test 29.09 code = 9819106202) LVOT Vmn (test code 0.75 = 7257309135) Pt Size (test code = 170.18 9730826323) Pt Wt (test code = 90.72 0080904022) Aov area Vmn (test 3.05 cm2 code = 7669690078) LVOT mean grad (test 2.57 mmHg code = 4790495390) 85 of MPHR (test 140.25 code = 4374524350) AoV area I VMN bsa 1.51 cm2/m2 (test code = 6922211044) Calc MPHR (test code 165.01 bpm = 1290916258) IVS pct thck PLAX 39.76 % (test code = 2392734062) LV SI Cube 2D (test 33.91 ml/m2 code = 3448826932) LV SV Cube 2D (test 68.57 ml code = 0519482686) LV vol d cube 2D 106.56 ml (test code = 9417562893) LV vol s cube 2D 38.00 ml (test code = 9217918300) LVPW pct thck PLAX 35.24 % (test code = 9692289474) LVPW s PLAX (test 1.16 cm code = 2178397712) MV Decel slope (test 8.38 m/s2 code = 0769213059) Pred Exer Dur R1 9.48 (test code = 0985286230) Pred METS R1 (test 9.75 code = 6335483198) LA Vol MOD A4C (test 46.56 ml code = 0963674347) Velocity Ratio 0.80 m/s (V1/V2) (test code = 4689) EF (test code = 56 % 6486336194) E/A ratio (test code 0.85 = 4794838163) LVOT VTI (CM) (test 21.00 cm code = 8975299822) MOE (test code = MOE) Left Ventricle: [...] normal. Lab Interpretation Abnormal (test code = 98734-9) [facility]-K[facility]O-1 (COVID-19) RNA [Presence] in Respiratory specimen by LEILANI with probe [id number] 00:11:33 Test Item Value Reference Range Interpretation Comments SARS-CoV-2 (COVID-19) RNA Not detected [Presence] in Respiratory specimen by LEILANI with probe detection (test code = 14867-8) Whether patient is employed in a Unknown healthcare setting (test code = 19347-1) Whether the patient has symptoms Unknown related to condition of interest (test code = 64908-2) Whether the patient was Unknown hospitalized for condition of interest (test code = 96049-1) Whether the patient was admitted Unknown to intensive care unit (ICU) for condition of interest (test code = 21818-0) Whether patient resides in a Unknown congregate care setting (test code = 54770-2) status (test code = Unknown 93067-0) Date and time of symptom onset Unknown (test code = 95709-5) [facility] [id number] 20:52:15 Test Item Value Reference Range Interpretation Comments BSA (test code = 2.03 m2 6126924104) BSA Rashid (test code 2.12 m2 = 7881335785) BSA Haycock (test 2.11 m2 code = 4518044698) Pred METS R1 (test 9.76 code = 7896498108) Pred Exer Dur R1 9.48 (test code = 0513780752) Calc MPHR (test 165.06 bpm code = 2154216089) 85 of MPHR (test 140.30 code = 2366088983) Pt Wt (test code = 91.17 2005655342) Pt Size (test code 170.18 = 9519046115) BMI (test code = 31.48 kg/m2 3308026187) MOE (test code = MOE) Left Ventricle: [...] study. The probe was inserted by the refrigeration systems installer. There was no probe insertion difficulty. Anesthesia was given. Refer to anesthesia note. The patient tolerated the procedure well and recovered without any complications.Prior StudyThere were no significant changes noted when compared to the prior TTE study. BSA (test code = 2.03 m2 7273734740) BSA Rashid (test code 2.12 m2 = 9407168523) BSA Haycock (test 2.11 m2 code = 7330362550) Pred METS R1 (test 9.76 code = 6016888796) Pred Exer Dur R1 9.48 (test code = 8233210433) Calc MPHR (test 165.06 bpm code = 3738367717) 85 of MPHR (test 140.30 code = 4393556134) Pt Wt (test code = 91.17 5435953200) Pt Size (test code 170.18 = 7689172634) BMI (test code = 31.48 kg/m2 4053149842) MOE (test code = MOE) Left Ventricle: [...] study. The probe was inserted by the refrigeration systems installer. There was no probe insertion difficulty. Anesthesia was given. Refer to anesthesia note. The patient tolerated the procedure well and recovered without any complications.Prior StudyThere were no significant changes noted when compared to the prior TTE study. [facility] [id number] 20:52:15 Test Item Value Reference Range Interpretation Comments BSA (test code = 2.03 m2 7051082899) BSA Rashid (test code 2.12 m2 = 0311796814) BSA Haycock (test 2.11 m2 code = 3274475612) Pred METS R1 (test 9.76 code = 2822598815) Pred Exer Dur R1 9.48 (test code = 8734737684) Calc MPHR (test 165.06 bpm code = 0454017435) 85 of MPHR (test 140.30 code = 4315866590) Pt Wt (test code = 91.17 3040128334) Pt Size (test code 170.18 = 4452386357) BMI (test code = 31.48 kg/m2 5160867503) MOE (test code = MOE) Left Ventricle: [...] study. The probe was inserted by the refrigeration systems installer. There was no probe insertion difficulty. Anesthesia was given. Refer to anesthesia note. The patient tolerated the procedure well and recovered without any complications.Prior StudyThere were no significant changes noted when compared to the prior TTE study. [facility] myocardial [id number] 21:20:55 Test Item Value Reference Range Interpretation Comments Target HR (test 166.00 bpm code = 0674939271) Resting HR (test 99 BPM code = 0524718212) Resting BP (test 112/70 mmHg code = 6952249345) O2 sat rest (test 99 % code = 7175912390) Post Peak HR (test 113 bpm code = 1963776194) Percent HR (test 68.07 % code = 1894656380) Post Peak BP (test 112/70 mmHg code = 9438491513) O2 sat peak (test 98 % code = 4781073854) Nuc Stress EF (test 63 % code = 7474001725) Radiology Study observation (narrative) (test code = 90871-1) MOE (test code = MOE) Conclusion: Abnormal [...] The resting administration time was at 10:07 [facility] on 04/17/2022. Resting images obtained at 11:22 [facility]. Images performed at stress after an injection of 30.5 mCi. The stress administration time was at 12:20 [facility] on 04/17/2022. Stress images obtained at 13:36 [facility].Nuclear Study QualityA perfusion 1-day rest/stress protocol was [...] Target HR (test 166.00 bpm code = 4530787817) Resting HR (test 99 BPM code = 0205476413) Resting BP (test 112/70 mmHg code = 6734150554) O2 sat rest (test 99 % code = 7970655425) Post Peak HR (test 113 bpm code = 3065161929) Percent HR (test 68.07 % code = 8539314225) Post Peak BP (test 112/70 mmHg code = 5176880260) O2 sat peak (test 98 % code = 1631246006) Nuc Stress EF (test 63 % code = 7107932116) MOE (test code = MOE) Conclusion: Abnormal [...] The resting administration time was at 10:07 [facility] on 04/17/2022. Resting images obtained at 11:22 [facility]. Images performed at stress after an injection of 30.5 mCi. The stress administration time was at 12:20 [facility] on 04/17/2022. Stress images obtained at 13:36 [facility].Nuclear Study QualityA perfusion 1-day rest/stress protocol was [...] Scores: SDS Score: N/A Percentage Abnormal: N/A [facility] myocardial [id number] 21:20:55 Test Item Value Reference Range Interpretation Comments Target HR (test 166.00 bpm code = 7488437500) Resting HR (test 99 BPM code = 0694843649) Resting BP (test 112/70 mmHg code = 7104978773) O2 sat rest (test 99 % code = 9025066499) Post Peak HR (test 113 bpm code = 1479627928) Percent HR (test 68.07 % code = 9883552462) Post Peak BP (test 112/70 mmHg code = 2316303298) O2 sat peak (test 98 % code = 0448863641) Nuc Stress EF (test 63 % code = 1811398321) Radiology Study observation (narrative) (test code = 16710-2) MOE (test code = MOE) Conclusion: Abnormal [...] The resting administration time was at 10:07 [facility] on 04/17/2022. Resting images obtained at 11:22 [facility]. Images performed at stress after an injection of 30.5 mCi. The stress administration time was at 12:20 [facility] on 04/17/2022. Stress images obtained at 13:36 [facility].Nuclear Study QualityA perfusion 1-day rest/stress protocol was [...] Scores: SDS Score: N/A Percentage Abnormal: N/A [facility] stress [id number] 21:15:16 Test Item Value Reference Range Interpretation Comments Resting HR (test code 99 = 5549255707) Resting BP (test code 112&70 = 1422175798) Peak MET Achieved 1.0 (test code = 2938544787) Protocol Name (test LEXISCAN code = 2864971243) Time in Exercise Phase 00:00:53 (test code = 8548995363) Max Systolic BP (test 112 code = 3330504128) Max Diastolic BP (test 70 code = 8781531312) Max Heart Rate (test 113 code = 7018400983) Max Predicted Heart 166 Rate (test code = 6929137003) Target HR Formula (220 - Age)*100% (test code = 6791895580) Test Indication (test code = 4798615733) Arrhy During Ex (test none code = 6339673789) ECG Interp Before EX atrial fibrillation (test code = 1776327904) ECG Interp During Ex NONSPECIFIC (test code = 2746832090) Ex Summary Comment Myoview to follow (test code = 7729241131) Chest Pain Statement none (test code = 1474011292) Overall HR Response to PHARMACOLOGIC STRESS Exercise (test code = 6174613138) Overall BP Response To normal resting BP - Exercise (test code = appropriate response 9977063325) Reason for Termination Protocol completed (test code = 5127618411) Stress Test Impression MYOVIEW TO (test code = FOLLOW--Electronically 1598678143) Signed By Jaspreet Cannon MD ([id number]) on 04/18/2022 3:15:13 PM Resting HR (test code 99 = 6877806115) Resting BP (test code 112&70 = 1563019291) Peak MET Achieved 1.0 (test code = 2131079507) Protocol Name (test LEXISCAN code = 2250832438) Time in Exercise Phase 00:00:53 (test code = 3273533063) Max Systolic BP (test 112 code = 5987402484) Max Diastolic BP (test 70 code = 4332984992) Max Heart Rate (test 113 code = 7811809471) Max Predicted Heart 166 Rate (test code = 6811056107) Target HR Formula (220 - Age)*100% (test code = 5860791270) Test Indication (test code = 7068837633) Arrhy During Ex (test none code = 9784778514) ECG Interp Before EX atrial fibrillation (test code = 8390650171) ECG Interp During Ex NONSPECIFIC (test code = 5146991822) Ex Summary Comment Myoview to follow (test code = 9318435143) Chest Pain Statement none (test code = 1753588198) Overall HR Response to PHARMACOLOGIC STRESS Exercise (test code = 0932994133) Overall BP Response To normal resting BP - Exercise (test code = appropriate response 1311390943) Reason for Termination Protocol completed (test code = 7420083673) Stress Test Impression MYOVIEW TO (test code = FOLLOW--Electronically 7205810597) Signed By Jaspreet Cannon MD ([id number]) on 04/18/2022 3:15:13 PM [facility] [id number] 21:15:16 Test Item Value Reference Range Interpretation Comments Resting HR (test code 99 = 4238820263) Resting BP (test code 112&70 = 7741471662) Peak MET Achieved 1.0 (test code = 8110151382) Protocol Name (test LEXISCAN code = 4059860246) Time in Exercise Phase 00:00:53 (test code = 7698045311) Max Systolic BP (test 112 code = 5822568001) Max Diastolic BP (test 70 code = 9982446351) Max Heart Rate (test 113 code = 6846362233) Max Predicted Heart 166 Rate (test code = 2630898142) Target HR Formula (220 - Age)*100% (test code = 5227709332) Test Indication (test code = 6515398489) Arrhy During Ex (test none code = 9853977731) ECG Interp Before EX atrial fibrillation (test code = 9276190530) ECG Interp During Ex NONSPECIFIC (test code = 8377691252) Ex Summary Comment Myoview to follow (test code = 3056005802) Chest Pain Statement none (test code = 5664198997) Overall HR Response to PHARMACOLOGIC STRESS Exercise (test code = 4948295870) Overall BP Response To normal resting BP - Exercise (test code = appropriate response 6477181482) Reason for Termination Protocol completed (test code = 9503777400) Stress Test Impression MYOVIEW TO (test code = FOLLOW--Electronically 2401159231) Signed By Jaspreet Cannon MD ([id number]) on 04/18/2022 3:15:13 PM [facility], (w Contrast, Strain and 3D if needed)2022-04-14 21:07:42 Test Item Value Reference Interpretation Comments Range EF (test code = 59 % 52-72 1491555812) LV EF,BP (test code 57.09 % = 7337309683) IVS,d (test code = 1.13 cm 0.6-1 A 8614524868) IVS s 2D (test code 1.32 cm = 6548552562) LVPWD,d (test code 1.09 cm 0.60-1.19 = 9276322636) LVPW s PLAX (test 1.37 cm code = 2217403105) LV,s (test code = 3.04 cm 1406239858) LVOT Diam,S (test 2.09 cm code = 2230253671) LV ANDERSON VOL (test 88.75 ml 62-150 code = 7782524189) LV SYS VOL (test 36.02 ml 21-61 code = 6675931940) LV Vol,d A2C (test 82.11 mL code = 8716860149) LV Vol,s A2C (test 34.60 mL code = 2476273350) LV Vol,d A4C (test 81.73 ml code = 9057955135) LV Vol,s A4C (test 37.26 ml code = 5617531186) MV Peak E Sander (test 0.89 m/s code = 5628652893) MV Peak A Sander (test 0.25 m/s code = 2451899562) E/A ratio (test 3.56 <=0.8 A [Automated code = 6427728889) message] The system which generated this result transmitted reference range: <=0.8. The reference range was not used to interpret this result as normal/abnormal . E wave decelartion 177.02 See_Comment A [Automat ed time (test code = message] T he 1954269886) system which generated this result transmitted reference range: 200 msec. The reference range was not used to interpret this result as normal/abnormal . LV Systolic Volume 17.13 mL/m2 11-31 Index (test code = 5885057151) LV Diastolic Volume 40.65 mL/m2 34-74 Index (test code = 8293460136) LV,d (test code = 4.42 cm 2247306565) IVS/LVPW,2D (test 1.03 code = 0911837978) LV EF,2D (test code 67.66 % = 5626802904) LV FS Cube 2D (test 31.36 code = 1194035296) LV FS Teich 2D 31.36 (test code = 5396703230) LV SI Teich 2D 26.07 ml/m2 (test code = 2770809126) LV SV Teich 2D 52.72 ml (test code = 1735090406) LV Vol s Teich PSAX 36.02 ml (test code = 7217655713) LVOT stroke volume 0.48 cm3 (test code = 2112913582) Left Atrium 3.37 cm <=4 [Automated Dimension Anterior message] The (test code = system which 3289260604) generated this result transmitted reference range: <=4. The reference range was not used to interpret this result as normal/abnormal . LA Vol MOD A4C 44.03 ml (test code = 4786216258) LA area s A4C (test 16.42 cm2 code = 9645288267) LVOT area (test 3.43 cm2 code = 7821552848) LVOT Vmax (test 0.86 m/s code = 9457063729) AoV Mean PG (test 3.31 See_Comment [Automate d code = 4636803876) message] The system which generated this result transmitted reference range: 20 mmHg. The reference range was not used to interpret this result as normal/abnormal . AoV Peak PG (test 4.75 mmHg code = 3405251020) AV LVOT peak 2.89 mmHg gradient (test code = 8489557018) AoV area i VTI BSA 1.33 cm2/m2 >=0.85 [Automat ed Jean Claude (test code = message] The 6232691761) system which generated this result transmitted reference range: >=0.85. The reference range was not used to interpret this result as normal/abnormal . AoV Area, Vmax 2.67 cm2 >=1.5 [Automated (test code = message] The 2518152473) system which generated this result transmitted reference range: >=1.5. The reference range was not used to interpret this result as normal/abnormal . LVOT VTI (CM) (test 14.00 cm code = 1072225199) AoV Vmax (test code 1.11 m/s = 9178548375) AoV Vmn (test code 0.88 m/s = 2837683692) AoV Area, VTI (test 2.69 cm2 code = 9329523749) LVOT CO (test code 5.03 l/min = 7377703136) LVOT CI (test code 2.49 l/min/m2 = 4664274758) LVOT HR for LVOT CO 113.01 bpm (test code = 3761077623) LVOT SI (test code 22.01 ml/m2 = 7712076005) Velocity Ratio 0.77 m/s (V1/V2) (test code = 4689) MV stenosis 41.13 ms <=150 [Automated pressure 1/2 time message] T he (test code = system which 8561526563) generated this result transmitted reference range: <=150. The reference range was not used to interpret this result as normal/abnormal . MV E A ratio (test 6.25 code = 5283199320) MV valve area p 1/2 5.35 cm2 method (test code = 4405044091) E prime lat (test 0.04 code = 0835544182) E prime sept (test 0.03 code = 1499085124) RVOT Vmax (test 0.87 m/s code = 4254330340) PV Pk Grad (test 2.43 See_Comment [Automated code = 8227101443) message] The system which generated this result transmitted reference range: 36 mmHg. The reference range was not used to interpret this result as normal/abnormal . RVOT pk grad (test 3.02 mmHg code = 6840044543) PV VMAX (test code 0.78 m/s <=3 [Automat ed = 8336995903) message] The system which generated this result transmitted reference range: <=3. The reference range was not used to interpret this result as normal/abnormal . Ao Root Diameter 2.77 cm <=3.99 [Automated (test code = message] The 0463904757) system which generated this result transmitted reference range: <=3.99. The reference range was not used to interpret this result as normal/abnormal . Ao Root Diameter 2.77 cm (test code = 5477440419) Ascending aorta 2.95 cm (test code = 3838604683) BSA (test code = 2.02 m2 4666166578) BSA Rashid (test code 2.11 m2 = 9916459188) BSA Haycock (test 2.10 m2 code = 9229013439) Pred METS R1 (test 9.76 code = 1410100836) Pred Exer Dur R1 9.49 (test code = 5686506810) MV Decel slope 5.02 m/s2 (test code = 5236986327) LVPW pct thck PLAX 25.29 % (test code = 1074103161) LV vol s cube 2D 27.97 ml (test code = 4704169741) LV vol d cube 2D 86.49 ml (test code = 1235393239) LV SV Cube 2D (test 58.52 ml code = 6368196132) LV SI Cube 2D (test 28.94 ml/m2 code = 1787862066) IVS pct thck PLAX 16.96 % (test code = 1958901109) Calc MPHR (test 165.08 bpm code = 6257776175) AoV area I VMN bsa 1.20 cm2/m2 (test code = 5081054583) 85 of MPHR (test 140.32 code = 5976255096) RVOT VTI (test code 0.14 m = 0812321048) RVOT Vmn (test code 0.59 m/s = 5889000155) RVOT mean grad 1.54 mmHg (test code = 9341079037) LVOT mean grad 1.67 mmHg (test code = 1185248917) Aov area Vmn (test 2.42 cm2 code = 7107632705) Pt Wt (test code = 90.72 5004298040) Pt Size (test code 170.18 = 7148945409) MV AE ratio (test 0.16 code = 8446004614) LVOT Vmn (test code 0.61 = 7328526966) PV Vmn (test code = 17.84 m/s 5998089196) LV Vol Index s 41.57 ml/m2 bpmod BSA Jean Claude (test code = 3866952178) LV SI MOD BP BSA 23.73 ml/m2 Person (test code = 1427212663) BMI (test code = 31.32 kg/m2 2690629724) LV Vol,s BP (test 36.07 nl code = 6528278994) LV Vol,d BP (test 84.05 ml code = 4565840400) LV SV,BP (test code 47.99 % = 0291858024) LV SV,A4C (test 44.47 % code = 0651725278) LV SV,A2C (test 47.51 % code = 0901446460) [place],s A4C 6.78 cm (test code = 2153068294) [place],s A2C 6.94 cm (test code = 4920070399) [place],d A4C 7.48 cm (test code = 9669896070) [place],d A2C 7.91 cm (test code = 5115548173) LV EF,A4C (test 54.41 % code = 3758915280) LV EF,A2C (test 57.86 % code = 1479129629) AoV VTI (test code 0.16 m = 5164179447) LVOT VTI (test code 0.14 m = 7587796162) MOE (test code = MOE) Left Ventricle: [...] status. Lab Interpretation Abnormal (test code = 72280-2) EF (test code = 59 % 52-72 7484314510) LV EF,BP (test code 57.09 % = 3629608797) IVS,d (test code = 1.13 cm 0.6-1 A 5346191517) IVS s 2D (test code 1.32 cm = 8655219686) LVPWD,d (test code 1.09 cm 0.60-1.19 = 8086233939) LVPW s PLAX (test 1.37 cm code = 3439771192) LV,s (test code = 3.04 cm 6074550701) LVOT Diam,S (test 2.09 cm code = 2249908595) LV ANDERSON VOL (test 88.75 ml 62-150 code = 1853251982) LV SYS VOL (test 36.02 ml 21-61 code = 7997453015) LV Vol,d A2C (test 82.11 mL code = 7627646889) LV Vol,s A2C (test 34.60 mL code = 7832610857) LV Vol,d A4C (test 81.73 ml code = 5660869793) LV Vol,s A4C (test 37.26 ml code = 9182336253) MV Peak E Sander (test 0.89 m/s code = 1862203056) MV Peak A Sander (test 0.25 m/s code = 6712956893) E/A ratio (test 3.56 <=0.8 A code = 3190750629) E wave decelartion 177.02 See_Comment A [Automat ed time (test code = message] T he 6644769860) system which generated this result transmitted reference range: 200 msec. The reference range was not used to interpret this result as normal/abnormal . LV Systolic Volume 17.13 mL/m2 11-31 Index (test code = 6649104008) LV Diastolic Volume 40.65 mL/m2 34-74 Index (test code = 8740779918) LV,d (test code = 4.42 cm 7424672074) IVS/LVPW,2D (test 1.03 code = 4351708126) LV EF,2D (test code 67.66 % = 2667936308) LV FS Cube 2D (test 31.36 code = 8517822090) LV FS Teich 2D 31.36 (test code = 0633319603) LV SI Teich 2D 26.07 ml/m2 (test code = 6938793826) LV SV Teich 2D 52.72 ml (test code = 5626347720) LV Vol s Teich PSAX 36.02 ml (test code = 5778186549) LVOT stroke volume 0.48 cm3 (test code = 2721043247) Left Atrium 3.37 cm <=4 Dimension Anterior (test code = 2494982419) LA Vol MOD A4C 44.03 ml (test code = 5060043865) LA area s A4C (test 16.42 cm2 code = 9595203291) LVOT area (test 3.43 cm2 code = 6547917648) LVOT Vmax (test 0.86 m/s code = 7488857035) AoV Mean PG (test 3.31 See_Comment [Automate d code = 5836911819) message] The system which generated this result transmitted reference range: 20 mmHg. The reference range was not used to interpret this result as normal/abnormal . AoV Peak PG (test 4.75 mmHg code = 4197699183) AV LVOT peak 2.89 mmHg gradient (test code = 9468836624) AoV area i VTI BSA 1.33 cm2/m2 >=0.85 Person (test code = 4310084834) AoV Area, Vmax 2.67 cm2 >=1.5 (test code = 9515729307) LVOT VTI (CM) (test 14.00 cm code = 3297580024) AoV Vmax (test code 1.11 m/s = 3056479545) AoV Vmn (test code 0.88 m/s = 8419806286) AoV Area, VTI (test 2.69 cm2 code = 0031476701) LVOT CO (test code 5.03 l/min = 5386333808) LVOT CI (test code 2.49 l/min/m2 = 5966266388) LVOT HR for LVOT CO 113.01 bpm (test code = 5514495320) LVOT SI (test code 22.01 ml/m2 = 0859452295) Velocity Ratio 0.77 m/s (V1/V2) (test code = 4689) MV stenosis 41.13 ms <=150 pressure 1/2 time (test code = 9278734417) MV E A ratio (test 6.25 code = 7771283937) MV valve area p 1/2 5.35 cm2 method (test code = 4108628672) E prime lat (test 0.04 code = 0271018390) E prime sept (test 0.03 code = 9306537329) RVOT Vmax (test 0.87 m/s code = 6542361778) PV Pk Grad (test 2.43 See_Comment [Automated code = 7291869302) message] The system which generated this result transmitted reference range: 36 mmHg. The reference range was not used to interpret this result as normal/abnormal . RVOT pk grad (test 3.02 mmHg code = 4960165109) PV VMAX (test code 0.78 m/s <=3 = 2446470262) Ao Root Diameter 2.77 cm <=3.99 (test code = 6452636214) Ao Root Diameter 2.77 cm (test code = 7512913944) Ascending aorta 2.95 cm (test code = 6231163410) BSA (test code = 2.02 m2 3456433537) BSA Rashid (test code 2.11 m2 = 1310883572) BSA Haycock (test 2.10 m2 code = 7796284834) Pred METS R1 (test 9.76 code = 3721475666) Pred Exer Dur R1 9.49 (test code = 5995896332) MV Decel slope 5.02 m/s2 (test code = 2531580342) LVPW pct thck PLAX 25.29 % (test code = 6544944616) LV vol s cube 2D 27.97 ml (test code = 3902374647) LV vol d cube 2D 86.49 ml (test code = 6701426602) LV SV Cube 2D (test 58.52 ml code = 6713986706) LV SI Cube 2D (test 28.94 ml/m2 code = 1461253440) IVS pct thck PLAX 16.96 % (test code = 2113276888) Calc MPHR (test 165.08 bpm code = 3180289836) AoV area I VMN bsa 1.20 cm2/m2 (test code = 9772024360) 85 of MPHR (test 140.32 code = 5642678782) RVOT VTI (test code 0.14 m = 5227359219) RVOT Vmn (test code 0.59 m/s = 1886340867) RVOT mean grad 1.54 mmHg (test code = 0937513946) LVOT mean grad 1.67 mmHg (test code = 8777836826) Aov area Vmn (test 2.42 cm2 code = 3801047722) Pt Wt (test code = 90.72 0209465444) Pt Size (test code 170.18 = 8283830378) MV AE ratio (test 0.16 code = 1356928399) LVOT Vmn (test code 0.61 = 2068439402) PV Vmn (test code = 17.84 m/s 8697467139) LV Vol Index s 41.57 ml/m2 bpmod BSA Jean Claude (test code = 9453350447) LV SI MOD BP BSA 23.73 ml/m2 Jena Claude (test code = 7547173842) BMI (test code = 31.32 kg/m2 7295600215) LV Vol,s BP (test 36.07 nl code = 1757466454) LV Vol,d BP (test 84.05 ml code = 3221277862) LV SV,BP (test code 47.99 % = 8805091355) LV SV,A4C (test 44.47 % code = 8943033022) LV SV,A2C (test 47.51 % code = 9179735561) [place],s A4C 6.78 cm (test code = 3509514779) [place],s A2C 6.94 cm (test code = 5206218531) [place],d A4C 7.48 cm (test code = 3888566739) [place],d A2C 7.91 cm (test code = 0880660851) LV EF,A4C (test 54.41 % code = 3526612821) LV EF,A2C (test 57.86 % code = 1767468974) AoV VTI (test code 0.16 m = 6053344651) LVOT VTI (test code 0.14 m = 2346813406) MOE (test code = MOE) Left Ventricle: [...] Technical difficulties due to patient's clinical status. [facility], (w Contrast, Strain and 3D if needed)2022-04-14 21:07:42 Test Item Value Reference Interpretation Comments Range EF (test code = 59 % 52-72 0562609452) LV EF,BP (test code 57.09 % = 5330472242) IVS,d (test code = 1.13 cm 0.6-1 A 8441622900) IVS s 2D (test code 1.32 cm = 0282259981) LVPWD,d (test code 1.09 cm 0.60-1.19 = 0619684437) LVPW s PLAX (test 1.37 cm code = 8124092807) LV,s (test code = 3.04 cm 7634282570) LVOT Diam,S (test 2.09 cm code = 0816712913) LV ANDERSON VOL (test 88.75 ml 62-150 code = 0702140984) LV SYS VOL (test 36.02 ml 21-61 code = 3180790369) LV Vol,d A2C (test 82.11 mL code = 5127913584) LV Vol,s A2C (test 34.60 mL code = 7120687143) LV Vol,d A4C (test 81.73 ml code = 0706110207) LV Vol,s A4C (test 37.26 ml code = 7346543621) MV Peak E Sander (test 0.89 m/s code = 3434666990) MV Peak A Sander (test 0.25 m/s code = 6545096062) E/A ratio (test 3.56 <=0.8 A code = 5615090900) E wave decelartion 177.02 See_Comment A [Automat ed time (test code = message] T he 4741038987) system which generated this result transmitted reference range: 200 msec. The reference range was not used to interpret this result as normal/abnormal . LV Systolic Volume 17.13 mL/m2 11-31 Index (test code = 6342815648) LV Diastolic Volume 40.65 mL/m2 34-74 Index (test code = 4095209391) LV,d (test code = 4.42 cm 0862638432) IVS/LVPW,2D (test 1.03 code = 5180054272) LV EF,2D (test code 67.66 % = 8733554326) LV FS Cube 2D (test 31.36 code = 3260600346) LV FS Teich 2D 31.36 (test code = 2958197667) LV SI Teich 2D 26.07 ml/m2 (test code = 9845859575) LV SV Teich 2D 52.72 ml (test code = 7960796350) LV Vol s Teich PSAX 36.02 ml (test code = 7862125764) LVOT stroke volume 0.48 cm3 (test code = 1137336735) Left Atrium 3.37 cm <=4 Dimension Anterior (test code = 4448004492) LA Vol MOD A4C 44.03 ml (test code = 9241737060) LA area s A4C (test 16.42 cm2 code = 4495775529) LVOT area (test 3.43 cm2 code = 4029191448) LVOT Vmax (test 0.86 m/s code = 0582408439) AoV Mean PG (test 3.31 See_Comment [Automate d code = 1022529899) message] The system which generated this result transmitted reference range: 20 mmHg. The reference range was not used to interpret this result as normal/abnormal . AoV Peak PG (test 4.75 mmHg code = 4111662631) AV LVOT peak 2.89 mmHg gradient (test code = 4734881378) AoV area i VTI BSA 1.33 cm2/m2 >=0.85 Person (test code = 4146214837) AoV Area, Vmax 2.67 cm2 >=1.5 (test code = 6461324598) LVOT VTI (CM) (test 14.00 cm code = 4608463729) AoV Vmax (test code 1.11 m/s = 5674096417) AoV Vmn (test code 0.88 m/s = 7456528295) AoV Area, VTI (test 2.69 cm2 code = 7835013856) LVOT CO (test code 5.03 l/min = 1573392422) LVOT CI (test code 2.49 l/min/m2 = 3101694131) LVOT HR for LVOT CO 113.01 bpm (test code = 0024325688) LVOT SI (test code 22.01 ml/m2 = 6857587160) Velocity Ratio 0.77 m/s (V1/V2) (test code = 4689) MV stenosis 41.13 ms <=150 pressure 1/2 time (test code = 6169732386) MV E A ratio (test 6.25 code = 5421866698) MV valve area p 1/2 5.35 cm2 method (test code = 3313121545) E prime lat (test 0.04 code = 3471298105) E prime sept (test 0.03 code = 8879783144) RVOT Vmax (test 0.87 m/s code = 8854052510) PV Pk Grad (test 2.43 See_Comment [Automated code = 8294310836) message] The system which generated this result transmitted reference range: 36 mmHg. The reference range was not used to interpret this result as normal/abnormal . RVOT pk grad (test 3.02 mmHg code = 2576932952) PV VMAX (test code 0.78 m/s <=3 = 8524808799) Ao Root Diameter 2.77 cm <=3.99 (test code = 2139642666) Ao Root Diameter 2.77 cm (test code = 1896786753) Ascending aorta 2.95 cm (test code = 0367862517) BSA (test code = 2.02 m2 8406934734) BSA Rashid (test code 2.11 m2 = 5472720406) BSA Haycock (test 2.10 m2 code = 6323444412) Pred METS R1 (test 9.76 code = 2925677941) Pred Exer Dur R1 9.49 (test code = 2143136069) MV Decel slope 5.02 m/s2 (test code = 3144004072) LVPW pct thck PLAX 25.29 % (test code = 2489074052) LV vol s cube 2D 27.97 ml (test code = 6723916204) LV vol d cube 2D 86.49 ml (test code = 1204307075) LV SV Cube 2D (test 58.52 ml code = 5462903569) LV SI Cube 2D (test 28.94 ml/m2 code = 7337975553) IVS pct thck PLAX 16.96 % (test code = 9182203018) Calc MPHR (test 165.08 bpm code = 3233863879) AoV area I VMN bsa 1.20 cm2/m2 (test code = 0542075290) 85 of MPHR (test 140.32 code = 2720515503) RVOT VTI (test code 0.14 m = 4233997899) RVOT Vmn (test code 0.59 m/s = 8159199449) RVOT mean grad 1.54 mmHg (test code = 5417074445) LVOT mean grad 1.67 mmHg (test code = 4145482008) Aov area Vmn (test 2.42 cm2 code = 6100400209) Pt Wt (test code = 90.72 1810871733) Pt Size (test code 170.18 = 4417409214) MV AE ratio (test 0.16 code = 1808627770) LVOT Vmn (test code 0.61 = 1715708910) PV Vmn (test code = 17.84 m/s 0549101701) LV Vol Index s 41.57 ml/m2 bpmod BSA Person (test code = 4755079133) LV SI MOD BP BSA 23.73 ml/m2 Person (test code = 5111856683) BMI (test code = 31.32 kg/m2 6259796606) LV Vol,s BP (test 36.07 nl code = 6109231881) LV Vol,d BP (test 84.05 ml code = 1246937370) LV SV,BP (test code 47.99 % = 1757791619) LV SV,A4C (test 44.47 % code = 5347325049) LV SV,A2C (test 47.51 % code = 4706892346) [place],s A4C 6.78 cm (test code = 2578380090) [place],s A2C 6.94 cm (test code = 5383702122) [place],d A4C 7.48 cm (test code = 8711661724) [place],d A2C 7.91 cm (test code = 7827852063) LV EF,A4C (test 54.41 % code = 4323355319) LV EF,A2C (test 57.86 % code = 1543419591) AoV VTI (test code 0.16 m = 4800095722) LVOT VTI (test code 0.14 m = 5987128735) MOE (test code = MOE) Left Ventricle: [...] status. Lab Interpretation Abnormal (test code = 80669-6) [facility] DlpfbnjoRZGV-SqG-6 (COVID-19) RNA [Presence] in Respiratory specimen by LEILANI with probe [id number] 05:21:05 Test Item Value Reference Range Interpretation Comments SARS-CoV-2 (COVID-19) RNA Not detected [Presence] in Respiratory specimen by LEILANI with probe detection (test code = 34165-4) Whether patient is employed in a Unknown healthcare setting (test code = 72507-3) Whether the patient has symptoms Unknown related to condition of interest (test code = 03455-5) Whether the patient was Unknown hospitalized for condition of interest (test code = 25336-3) Whether the patient was admitted Unknown to intensive care unit (ICU) for condition of interest (test code = 30908-0) Whether patient resides in a Unknown congregate care setting (test code = 24733-0) status (test code = Unknown 02744-2) Date and time of symptom onset Unknown (test code = 08857-5) [facility] ED Preliminary Interpretation - Not an [id number] 21:56:45 Test Item Value Reference Range Interpretation Comments MOE (test code = MOE) Fortino Lozano MD 04/12/2022 9:18 [facility] [place] Preliminary Interpretation - Not an OrderPerformed by: Fortino Lozano MDAuthorized by: Fortino Lozano MD ECG reviewed by ED Physician in the absence of a refrigeration systems installer: yes Interpretation: Interpretation: abnormal Rate: ECG rate: 116 ECG rate assessment: tachycardic Rhythm: Rhythm: sinus tachycardia Ectopy: Ectopy: none QRS: QRS axis: Left QRS intervals: NormalConduction: Conduction: abnormal Abnormal conduction: complete RBBB ST segments: ST segments: NormalT waves: T waves: normal Comments: Similar to 10/10 Lab Interpretation Abnormal (test code = 03276-0) [facility] ED Preliminary Interpretation - Not an [id number] 21:56:45 Test Item Value Reference Range Interpretation Comments MOE (test code = MOE) Fortino Lozano MD 04/12/2022 9:18 [facility] Preliminary Interpretation - Not an OrderPerformed by: Fortino Lozano MDAuthorized by: Fortino Lozano MD ECG reviewed by ED Physician in the absence of a refrigeration systems installer: yes Interpretation: Interpretation: abnormal Rate: ECG rate: 116 ECG rate assessment: tachycardic Rhythm: Rhythm: sinus tachycardia Ectopy: Ectopy: none QRS: QRS axis: Left QRS intervals: NormalConduction: Conduction: abnormal Abnormal conduction: complete RBBB ST segments: ST segments: NormalT waves: T waves: normal Comments: Similar to 10/10 Lab Interpretation Abnormal (test code = 49921-9) [facility] ED Preliminary Interpretation - Not an [id number] 21:56:45 Test Item Value Reference Range Interpretation Comments MOE (test code = MOE) Fortino Lozano MD 04/12/2022 9:18 [facility] [place] Preliminary Interpretation - Not an OrderPerformed by: Fortino Lozano MDAuthorized by: Fortino Lozano MD ECG reviewed by ED Physician in the absence of a refrigeration systems installer: yes Interpretation: Interpretation: abnormal Rate: ECG rate: 116 ECG rate assessment: tachycardic Rhythm: Rhythm: sinus tachycardia Ectopy: Ectopy: none QRS: QRS axis: Left QRS intervals: NormalConduction: Conduction: abnormal Abnormal conduction: complete RBBB ST segments: ST segments: NormalT waves: T waves: normal Comments: Similar to 10/10 Lab Interpretation Abnormal (test code = 89090-9) [facility] ED Preliminary Interpretation - Not an [id number] 21:56:45 Test Item Value Reference Range Interpretation Comments MOE (test code = MOE) Fortino Lozano MD 04/12/2022 9:18 [facility] Preliminary Interpretation - Not an OrderPerformed by: Fortino Lozano MDAuthorized by: Fortino Lozano MD ECG reviewed by ED Physician in the absence of a refrigeration systems installer: yes Interpretation: Interpretation: abnormal Rate: ECG rate: 116 ECG rate assessment: tachycardic Rhythm: Rhythm: sinus tachycardia Ectopy: Ectopy: none QRS: QRS axis: Left QRS intervals: NormalConduction: Conduction: abnormal Abnormal conduction: complete RBBB ST segments: ST segments: NormalT waves: T waves: normal Comments: Similar to 10/10 Lab Interpretation Abnormal (test code = 12010-3) [facility] Interpretation - Not an [id number] 21:56:45 Test Item Value Reference Range Interpretation Comments MOE (test code = MOE) Fortino Lozano MD 04/12/2022 9:18 [facility] [place] Preliminary Interpretation - Not an OrderPerformed by: Fortino Lozano MDAuthorized by: Fortino Lozano MD ECG reviewed by ED Physician in the absence of a refrigeration systems installer: yes Interpretation: Interpretation: abnormal Rate: ECG rate: 116 ECG rate assessment: tachycardic Rhythm: Rhythm: sinus tachycardia Ectopy: Ectopy: none QRS: QRS axis: Left QRS intervals: NormalConduction: Conduction: abnormal Abnormal conduction: complete RBBB ST segments: ST segments: NormalT waves: T waves: normal Comments: Similar to 10/10 Lab Interpretation Abnormal (test code = 56724-6) [facility] ED Preliminary Interpretation - Not an [id number] 21:56:45 Test Item Value Reference Range Interpretation Comments MOE (test code = MOE) Fortino Lozano MD 04/12/2022 9:18 [facility] Preliminary Interpretation - Not an OrderPerformed by: Fortino Lozano MDAuthorized by: Fortino Lozano MD ECG reviewed by ED Physician in the absence of a refrigeration systems installer: yes Interpretation: Interpretation: abnormal Rate: ECG rate: 116 ECG rate assessment: tachycardic Rhythm: Rhythm: sinus tachycardia Ectopy: Ectopy: none QRS: QRS axis: Left QRS intervals: NormalConduction: Conduction: abnormal Abnormal conduction: complete RBBB ST segments: ST segments: NormalT waves: T waves: normal Comments: Similar to 10/10 Lab Interpretation Abnormal (test code = 50099-8) [facility] ED Preliminary Interpretation - Not an [id number] 21:56:45 Test Item Value Reference Range Interpretation Comments MOE (test code = MOE) Fortino Lozano MD 04/12/2022 9:18 [facility] Preliminary Interpretation - Not an OrderPerformed by: Fortino Lozano MDAuthorized by: Fortino Lozano MD ECG reviewed by ED Physician in the absence of a refrigeration systems installer: yes Interpretation: Interpretation: abnormal Rate: ECG rate: 116 ECG rate assessment: tachycardic Rhythm: Rhythm: sinus tachycardia Ectopy: Ectopy: none QRS: QRS axis: Left QRS intervals: NormalConduction: Conduction: abnormal Abnormal conduction: complete RBBB ST segments: ST segments: NormalT waves: T waves: normal Comments: Similar to 10/10 Lab Interpretation Abnormal (test code = 96427-9) [facility] ED Preliminary Interpretation - Not an [id number] 21:56:45 Test Item Value Reference Range Interpretation Comments MOE (test code = MOE) Fortino Lozano MD 04/12/2022 9:18 [facility] Preliminary Interpretation - Not an OrderPerformed by: Fortino Lozano MDAuthorized by: Fortino Lozano MD ECG reviewed by ED Physician in the absence of a refrigeration systems installer: yes Interpretation: Interpretation: abnormal Rate: ECG rate: 116 ECG rate assessment: tachycardic Rhythm: Rhythm: sinus tachycardia Ectopy: Ectopy: none QRS: QRS axis: Left QRS intervals: NormalConduction: Conduction: abnormal Abnormal conduction: complete RBBB ST segments: ST segments: NormalT waves: T waves: normal Comments: Similar to 10/10 Lab Interpretation Abnormal (test code = 09452-3) [facility] ED Preliminary Interpretation - Not an [id number] 21:56:45 Test Item Value Reference Range Interpretation Comments MOE (test code = MOE) Fortino Lozano MD 04/12/2022 9:18 [facility] Preliminary Interpretation - Not an OrderPerformed by: Fotrino Lozano MDAuthorized by: Fortino Lozano MD ECG reviewed by ED Physician in the absence of a refrigeration systems installer: yes Interpretation: Interpretation: abnormal Rate: ECG rate: 116 ECG rate assessment: tachycardic Rhythm: Rhythm: sinus tachycardia Ectopy: Ectopy: none QRS: QRS axis: Left QRS intervals: NormalConduction: Conduction: abnormal Abnormal conduction: complete RBBB ST segments: ST segments: NormalT waves: T waves: normal Comments: Similar to 10/10 Lab Interpretation Abnormal (test code = 23838-2) [facility] ED Preliminary Interpretation - Not an [id number] 21:56:45 Test Item Value Reference Range Interpretation Comments MOE (test code = MOE) Fortino Lozano MD 04/12/2022 9:18 [facility] Preliminary Interpretation - Not an OrderPerformed by: Fortino Lozano MDAuthorized by: Fortino Lozano MD ECG reviewed by ED Physician in the absence of a refrigeration systems installer: yes Interpretation: Interpretation: abnormal Rate: ECG rate: 116 ECG rate assessment: tachycardic Rhythm: Rhythm: sinus tachycardia Ectopy: Ectopy: none QRS: QRS axis: Left QRS intervals: NormalConduction: Conduction: abnormal Abnormal conduction: complete RBBB ST segments: ST segments: NormalT waves: T waves: normal Comments: Similar to 10/10 Lab Interpretation Abnormal (test code = 91833-7) [facility] ED Preliminary Interpretation - Not an [id number] 21:56:45 Test Item Value Reference Range Interpretation Comments MOE (test code = MOE) Fortino Lozano MD 04/12/2022 9:18 [facility] Preliminary Interpretation - Not an OrderPerformed by: Fortino Lozano MDAuthorized by: Fortino Lozano MD ECG reviewed by ED Physician in the absence of a refrigeration systems installer: yes Interpretation: Interpretation: abnormal Rate: ECG rate: 116 ECG rate assessment: tachycardic Rhythm: Rhythm: sinus tachycardia Ectopy: Ectopy: none QRS: QRS axis: Left QRS intervals: NormalConduction: Conduction: abnormal Abnormal conduction: complete RBBB ST segments: ST segments: NormalT waves: T waves: normal Comments: Similar to 10/10 Lab Interpretation Abnormal (test code = 73927-0) [facility] ED Preliminary Interpretation - Not an [id number] 21:56:45 Test Item Value Reference Range Interpretation Comments MOE (test code = MOE) Fortino Lozano MD 04/12/2022 9:18 [facility] Preliminary Interpretation - Not an OrderPerformed by: Fortino Lozano MDAuthorized by: Fortino Lozano MD ECG reviewed by ED Physician in the absence of a refrigeration systems installer: yes Interpretation: Interpretation: abnormal Rate: ECG rate: 116 ECG rate assessment: tachycardic Rhythm: Rhythm: sinus tachycardia Ectopy: Ectopy: none QRS: QRS axis: Left QRS intervals: NormalConduction: Conduction: abnormal Abnormal conduction: complete RBBB ST segments: ST segments: NormalT waves: T waves: normal Comments: Similar to 10/10 Lab Interpretation Abnormal (test code = 88134-2) [facility] ED Preliminary Interpretation - Not an [id number] 21:56:45 Test Item Value Reference Range Interpretation Comments MOE (test code = MOE) Fortino Lozano MD 04/12/2022 9:18 [facility] Preliminary Interpretation - Not an OrderPerformed by: Fortino Lozano MDAuthorized by: Fortino Lozano MD ECG reviewed by ED Physician in the absence of a refrigeration systems installer: yes Interpretation: Interpretation: abnormal Rate: ECG rate: 116 ECG rate assessment: tachycardic Rhythm: Rhythm: sinus tachycardia Ectopy: Ectopy: none QRS: QRS axis: Left QRS intervals: NormalConduction: Conduction: abnormal Abnormal conduction: complete RBBB ST segments: ST segments: NormalT waves: T waves: normal Comments: Similar to 10/10 Lab Interpretation Abnormal (test code = 15665-5) [facility] ED Preliminary Interpretation - Not an [id number] 21:56:45 Test Item Value Reference Range Interpretation Comments MOE (test code = MOE) Fortino Lozano MD 04/12/2022 9:18 [facility] Preliminary Interpretation - Not an OrderPerformed by: Fortino Lozano MDAuthorized by: Fortino Lozano MD ECG reviewed by ED Physician in the absence of a refrigeration systems installer: yes Interpretation: Interpretation: abnormal Rate: ECG rate: 116 ECG rate assessment: tachycardic Rhythm: Rhythm: sinus tachycardia Ectopy: Ectopy: none QRS: QRS axis: Left QRS intervals: NormalConduction: Conduction: abnormal Abnormal conduction: complete RBBB ST segments: ST segments: NormalT waves: T waves: normal Comments: Similar to 10/10 Lab Interpretation Abnormal (test code = 71507-3) [facility] ED Preliminary Interpretation - Not an [id number] 21:56:45 Test Item Value Reference Range Interpretation Comments MOE (test code = MOE) Fortino Lozano MD 04/12/2022 9:18 [facility] Preliminary Interpretation - Not an OrderPerformed by: Fortino Lozano MDAuthorized by: Fortino Lozano MD ECG reviewed by ED Physician in the absence of a refrigeration systems installer: yes Interpretation: Interpretation: abnormal Rate: ECG rate: 116 ECG rate assessment: tachycardic Rhythm: Rhythm: sinus tachycardia Ectopy: Ectopy: none QRS: QRS axis: Left QRS intervals: NormalConduction: Conduction: abnormal Abnormal conduction: complete RBBB ST segments: ST segments: NormalT waves: T waves: normal Comments: Similar to 10/10 Lab Interpretation Abnormal (test code = 35508-3) [facility] RNA [Presence] in Respiratory specimen by LEILANI with probe [id number] 10:09:09 Test Item Value Reference Range Interpretation Comments SARS-CoV-2 (COVID-19) RNA Not detected [Presence] in Respiratory specimen by LEILANI with probe detection (test code = 30765-7) Whether patient is employed in a Unknown healthcare setting (test code = 82853-5) Whether the patient has symptoms Unknown related to condition of interest (test code = 90690-4) Whether the patient was Unknown hospitalized for condition of interest (test code = 76369-4) Whether the patient was admitted Unknown to intensive care unit (ICU) for condition of interest (test code = 36166-2) Whether patient resides in a Unknown congregate care setting (test code = 43863-7) status (test code = Unknown 05894-0) Date and time of symptom onset Unknown (test code = 20408-0) [facility] Test Item Value Reference Range Interpretation Comments GLUBED (test code = 170 mg/dL 74-106 H Performe d by certified GLUBED) 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 [facility] [id number] 21:00:00 Test Item Value Reference Range Interpretation Comments GLUBED (test code = 185 mg/dL 74-106 H Performe d by certified GLUBED) 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 [facility] [id number] 15:40:00 Test Item Value Reference Range Interpretation Comments GLUBED (test code = 167 mg/dL 74-106 H Performe d by certified GLUBED) 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 [facility] [id number] 11:13:00 Test Item Value Reference Range Interpretation Comments GLUBED (test code = 212 mg/dL 74-106 H Performe d by certified GLUBED) 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 [facility] [id number] 08:09:00 Test Item Value Reference Range Interpretation Comments GLUBED (test code = 91 mg/dL 74-106 N Performe d by certified GLUBED) 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 [facility] [id number] 20:51:00 Test Item Value Reference Range Interpretation Comments GLUBED (test code = 155 mg/dL 74-106 H Performe d by certified GLUBED) 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 [facility] [id number] 15:53:00 Test Item Value Reference Range Interpretation Comments GLUBED (test code = 130 mg/dL 74-106 H Performe d by certified GLUBED) 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 [facility] [id number] 11:15:00 Test Item Value Reference Range Interpretation Comments GLUBED (test code = 195 mg/dL 74-106 H Performe d by certified GLUBED) 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 [Automated mess age] The system [employer] generated this result transmitted ref erence range: >=60. Th e reference range was not used to int erpret this result as normal/abnormal . 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 [facility] [id number] 15:49:00 Test Item Value Reference Range Interpretation Comments GLUBED (test code = 191 mg/dL 74-106 H Performe d by certified GLUBED) 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 [Automated mess age] The system [employer] generated this result transmitted ref erence range: >=60. Th e reference range was not used to int erpret this result as normal/abnormal . 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 [facility] [id number] 16:48:00 Test Item Value Reference Range Interpretation Comments GLUBED (test code = 280 mg/dL 74-106 H Performe d by certified GLUBED) 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 [facility] [id number] 13:00:00 Test Item Value Reference Range Interpretation Comments GLUBED (test code = 226 mg/dL 74-106 H Performe d by certified GLUBED) 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 [facility] [id number] 11:29:00 Test Item Value Reference Range Interpretation Comments GLUBED (test code = 246 mg/dL 74-106 H Performe d by certified GLUBED) 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 [facility] [id number] 10:34:00 Test Item Value Reference Range Interpretation Comments GLUBED (test code = 227 mg/dL 74-106 H Performe d by certified GLUBED) 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 [facility] [id number] 10:34:00 Test Item Value Reference Range Interpretation Comments GLUBED (test code = 256 mg/dL 74-106 H Performe d by certified GLUBED) 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 [Automated mess age] The system [employer] generated this result transmitted ref erence range: >=60. Th e reference range was not used to int erpret this result as normal/abnormal . CREATININE (test 0.80 mg/dL 0.7-1.3 N code = CREAT) BUN/CREATININE RATIO 14.1 10-20 N (test code = BUN/CREA) CALCIUM (test code = 8.3 mg/dL 8.5-10.1 L CA) [id number] 18:01:00 Test Item Value Reference Range Interpretation Comments PHOSPHORUS (test code = PHOS) 2.8 mg/dL 2.5-4.9 N [id number] 18:01:00 Test Item Value Reference Range Interpretation Comments MAGNESIUM (test code = MAG) 1.7 mg/dL 1.8-2.4 L THYROID STIMULATING [id number] 18:01:00 Test Item Value Reference Range Interpretation Comments THYROID STIMULATING 0.667 uIU/mL 0.36-3.74 N TSH REFE RENCE HORMONE (test code = RANGES: EUTHYROID: TSH) 0.35 - 4.3 mIU/ mL HYPO : > 5.5 mI U/mL HYPER : < 0.35 mIU/mL CBC W/AUTO [id number] 18:00:00 Test Item Value Reference Range Interpretation [...] = 0.00 K/mm3 0.0-0.1 N NRBC#) LACTIC [id number] 14:22:00 Test Item Value Reference Range Interpretation Comments LACTIC ACID (test code = LACT) 1.3 mmol/L 0.4-1.9 N - XR TIBIA/FIBULA 2 V [id number] 12:37:00 [facility]Name: HARJINDER COLUNGA : 1965 Sex: M FAX: Jerry Roa MD [phone] [address] [place]: St: REG Name: HARJINDER COLUNGA [facility] : 1965 Age/S: 56/M [address] Unit #: [id number] Loc: [place] [address] Phys: Jerry Roa MD Acct: [id number] Dis Date: Status: REG ER PHONE #: [phone] Exam Date: 12/31/2021 1226 FAX #: [phone] Reason: leg redness EXAMS: CPT CODE: [id number] XR TIBIA/FIBULA 2 [place] [address] REASON FOR EXAM: leg redness EXAM ORDER [...] appear edematous. Correlate with physical exam. Location: [facility] ElectronicallySigned by Magan Rae MD on 12/31/2021 at 1237 Reported and signed by: Magan Rae MD CC: Jerry Roa MD Technologist: FORTINO SOSA RT(R) Trnscrd Date/Time/By: 12/31/2021 (8732) : By: [email or web address] Orig Print D/T: S: 12/31/2021 (2407) PAGE 1 Signed Report- XR KNEE 3 V [id number] 12:37:00 [facility])Name: HARJINDER COLUNGA : 1965 Sex: M FAX: Jerry Roa MD [phone] [place] [address] [place]: [address]: REG Name: HARJINDER COLUNGA [facility] : 1965 Age/S: 56/M [facility] Unit #: [id number] Loc: [place] [address] Phys: Jerry Roa MD Acct: [id number] Dis Date: Status: REG ER PHONE #: [phone] Exam Date: 12/31/2021 1226 FAX #: [phone] Reason: leg redness EXAMS: CPT CODE: [id number] XR KNEE 3 V LT [address]17 REASON FOR EXAM: leg redness EXAM ORDER DATE: 12/31/2021 11:19 AM Ordering M.DTish: Jerry Roa MD PROCEDURE: - XR KNEE [...] appear edematous. Correlate with physical exam. Location: [facility] at 1237 Reported and signed by: Magan Rae MD CC: Jerry Roa MD Technologist: RT STEFFANY(R) Trnscrd Date/Time/By: 12/31/2021 (5867) : By: [email or web address] Orig Print D/T: S: 12/31/2021 (5014) PAGE 1 Signed ReportBASIC METABOLIC [id number] 12:10:00 Test Item Value Reference Range Interpretation [...] >3 months. [Automated mess age] The system [employer] generated this result transmitted ref erence range: >=60. Th e reference range was not used to int erpret this result as normal/abnormal . CREATININE (test code 1.00 mg/dL 0.7-1.3 N = CREAT) BUN/CREATININE RATIO 10.8 10-20 N (test code = BUN/CREA) CALCIUM (test code = 8.8 mg/dL 8.5-10.1 N CA) HEPATIC FUNCTION [id number] 12:10:00 Test Item Value Reference Range Interpretation [...] due ALKP) to change in reagent. LACTIC [id number] 12:08:00 Test Item Value Reference Range Interpretation Comments LACTIC ACID (test 2.1 mmol/L 0.4-1.9 HH Results ca lled to code = LACT) [id number] by 2IRD 4988 12/31/21 1208Cr itical results verifie d and read back by Darlyn jean baptiste? Y FOR ALL ICU PATIENT EXCLUDING HOLD PLEASE CALL [phone] CBC W/AUTO [id number] 11:58:00 Test Item Value Reference Range Interpretation [...] = 0.00 K/mm3 0.0-0.1 N NRBC#) POC [id number] 16:17:00 Test Item Value Reference Range Interpretation Comments POC glucose (test code 238 mg/dL 65-100 H Opera tor Name: Sherice = 72411-7) FrancoDevice ID : [id number] Lab Interpretation Abnormal (test code = 07765-3) [facility] [id number] 16:17:00 Test Item Value Reference Range Interpretation Comments POC glucose (test code 238 mg/dL 65-100 H Opera tor Name: Sherice = 57614-0) Aneta ID : [id number] Lab Interpretation Abnormal (test code = 11324-0) [facility] [id number] 11:12:00 Test Item Value Reference Range Interpretation Comments Urine culture Mixed yadi Specimen isolate (test <=10-3 col/cc InformationSp ecimen code = 88648-5) Source: [facility] Site: [facility]2022-08-24 11:12:00 Test Item Value Reference Range Interpretation Comments Urine culture Mixed yadi Specimen isolate (test <=10-3 col/cc InformationSp ecimen code = 36474-2) Source: [facility] Site: [facility] [id number] 11:12:00 Test Item Value Reference Range Interpretation Comments Urine culture Mixed yadi Specimen isolate (test <=10-3 col/cc InformationSp ecimen code = 74369-8) Source: [facility] Site: [facility] [id number] 11:12:00 Test Item Value Reference Range Interpretation Comments Urine culture Mixed yadi Specimen isolate (test <=10-3 col/cc InformationSp ecimen code = 15677-1) Source: [facility] Site: [facility] [id number] 11:12:00 Test Item Value Reference Range Interpretation Comments Urine culture Mixed yadi Specimen isolate (test <=10-3 col/cc InformationSp ecimen code = 26617-9) Source: [facility] Site: [facility] [id number] 11:12:00 Test Item Value Reference Range Interpretation Comments Urine culture Mixed yadi Specimen isolate (test <=10-3 col/cc InformationSp ecimen code = 77645-8) Source: [facility] Site: [facility] [id number] 11:12:00 Test Item Value Reference Range Interpretation Comments Urine culture Mixed yadi Specimen isolate (test <=10-3 col/cc InformationSp ecimen code = 34803-4) Source: [facility] Site: [facility] [id number] 11:12:00 Test Item Value Reference Range Interpretation Comments Urine culture Mixed yadi Specimen isolate (test <=10-3 col/cc InformationSp ecimen code = 89287-4) Source: [facility] Site: [facility] [id number] 11:12:00 Test Item Value Reference Range Interpretation Comments Urine culture Mixed yadi Specimen isolate (test <=10-3 col/cc InformationSp ecimen code = 37915-8) Source: [facility] Site: [facility] [id number] 11:12:00 Test Item Value Reference Range Interpretation Comments Urine culture Mixed yadi Specimen isolate (test <=10-3 col/cc InformationSp ecimen code = 96871-1) Source: [facility] Site: [facility] [id number] 11:12:00 Test Item Value Reference Range Interpretation Comments Urine culture Mixed yadi Specimen isolate (test <=10-3 col/cc InformationSp ecimen code = 42633-3) [facility]: [facility] RNA [Presence] in Respiratory specimen by LEILANI with probe [id number] 06:28:40 Test Item Value Reference Range Interpretation Comments SARS-CoV-2 (COVID-19) RNA Not detected [Presence] in Respiratory specimen by LEILANI with probe detection (test code = 11509-3) Whether patient is employed in a Unknown healthcare setting (test code = 46065-6) Whether the patient has symptoms Unknown related to condition of interest (test code = 94093-9) Whether the patient was Unknown hospitalized for condition of interest (test code = 10561-8) Whether the patient was admitted Unknown to intensive care unit (ICU) for condition of interest (test code = 25660-5) Whether patient resides in a Unknown congregate care setting (test code = 18144-4) status (test code = Unknown 27770-7) Date and time of symptom onset Unknown (test code = 97606-5) [facility] 12 [id number] 16:49:51 Test Item Value Reference Range Interpretation Comments Ventricular rate (test code = 253) Atrial rate (test code = 255) CO interval (test code = 266) QRSD interval [...] for Inferior infarct are no longer present- [place] [address] [id number] 16:49:51 Test Item Value Reference Range Interpretation Comments Ventricular rate (test code = 253) Atrial rate (test code = 255) CO interval (test code = 266) QRSD interval [...] for Inferior infarct are no longer present- [facility] ED Preliminary Interpretation - Not an [id number] 04:49:00 Test Item Value Reference Range Interpretation Comments MOE (test code = MOE) Norberto Lanier FNP 10/11/2021 11:48 [facility] ED Preliminary Interpretation - Not an OrderPerformed by: Norberto Lanier FNPAuthorized by: Fahad Anna MD ECG reviewed by ED Physician in the absence of a refrigeration systems installer: yes Interpretation: Interpretation: abnormal Rate: ECG rate: 83 ECG rate assessment: normal Rhythm: Rhythm: sinus rhythm Ectopy: Ectopy: none QRS: QRS axis: Normal QRS intervals: WideConduction: Conduction: abnormal Abnormal conduction: complete RBBB and LAFB ST segments: ST segments: NormalT waves: T waves: non-specific Lab Interpretation Abnormal (test code = 01692-9) [facility] ED Preliminary Interpretation - Not an [id number] 04:49:00 Test Item Value Reference Range Interpretation Comments MOE (test code = MOE) Norberto Lanier FNP 10/11/2021 11:48 [facility] Preliminary Interpretation - Not an OrderPerformed by: Norberto Lanier FNPAuthorized by: Fahad Anna MD ECG reviewed by ED Physician in the absence of a refrigeration systems installer: yes Interpretation: Interpretation: abnormal Rate: ECG rate: 83 ECG rate assessment: normal Rhythm: Rhythm: sinus rhythm Ectopy: Ectopy: none QRS: QRS axis: Normal QRS intervals: WideConduction: Conduction: abnormal Abnormal conduction: complete RBBB and LAFB ST segments: ST segments: NormalT waves: T waves: non-specific Lab Interpretation Abnormal (test code = 96816-2) [place] [id number] 18:34:00 Test Item Value Reference Range Interpretation Comments GLUBED (test code = 316 mg/dL 74-106 H Performe d by certified GLUBED) 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 Clean CatchDRUGS OF ABUSE SCREEN [id number] 17:45:00 Test Item Value Reference Range Interpretation Comments UR MDMA (test code = NEGATIVE NEGATIVE MDMAQLU) URN COCAINE (test code = NEGATIVE NEGATIVE [A utomated message] COCAURN) The system whic h generated this result [...] NEGATIVE [A utomated message] OPIATURN) The system [employer] generated this result transmitted ref erence range: [...] [A utomated message] = METHAURN) The system [employer] generated this result transmitted ref erence range: <300 ng/ mL. The reference r maggi was not used to interpret this result as normal/abnor mal. Urine Source? Clean CatchBASIC METABOLIC [id number] 16:11:00 Test Item Value Reference Range Interpretation [...] GFR by RATE (test code = using Baer fied MDRD GFR) formula.Chronic kidney disease is defined as eith er kidney damageor GFR <60 mL/min/1.73 m2 for >3 months. [Automated mess age] The system [employer] generated this result transmitted ref erence range: >=60. Th e reference range was not used to int erpret this result as normal/abnormal . CREATININE (test code 0.99 mg/dL 0.55-1.3 N = CREAT) BUN/CREATININE RATIO 15.2 10-20 N (test code = BUN/CREA) CALCIUM (test code = 8.1 mg/dL 8.0-10.5 N CA) [id number] 16:11:00 Test Item Value Reference Range Interpretation Comments TROPONIN-HS (test 5.1 pg/mL 0-60 N CAUTION: U nits of the code = TROPI) current test m ethodology (pg/mL)differ f rom the prior test meth odology (ng/mL) by a fa ctorof 1000. [id number] 16:11:00 Test Item Value Reference Range Interpretation [...] CH ARGE TO THE PATIENT. CBC W/O [id number] 15:42:00 Test Item Value Reference Range Interpretation [...] N = MPV) - XR CHEST 1 [id number] 15:42:00 [facility])Name: HARJINDER COLUNGA : 1965 Sex: M FAX: Brennan Dupont [phone] [place] [address] [place]: [place] St: PRE Name: HARJINDER COLUNGA [facility] : 1965 Age/S: 56/M [address] Unit #: [id number] Loc: [facility] [address] Phys: Brennan Dupont MD [place], [place] [address] Acct: [id number] Dis Date: Status: PRE ER PHONE #: Exam Date: 08/06/2021 1541 FAX #: Reason: WEAKNESS EXAMS: CPT CODE: [id number] XR CHEST 1 V 45061 REASON FOR EXAM: WEAKNESS Exam Order Date: [...] unchanged. IMPRESSION: No acute cardiopulmonary process. Location: [facility] at 1542 Reported and signed by: Ramu Ramos M.D. CC: Brennan Dupont MD Technologist: Jonathan Herndon RT(R)(CT) Trnscrd Date/Time/By: 08/06/2021 (1542) : By: [email or web address] Orig Print D/T: S: 08/06/2021 (3321) PAGE 1 Signed ReportLone Star Glucose -- Point of Care Meters (44760) 2021-06-29 00:00:00 Test Item Value Reference Range Interpretation Comments BLOOD GLUCOSE-HOME MONITOR (test code = 266 70-110 A 04026-9) [id number] 16:34:00 Test Item Value Reference Range Interpretation Comments TROPONIN-I (test code = TROPI) <0.015 ng/mL 0.00-0.056 N URINALYSIS [id number] 15:41:00 Test Item Value Reference Range Interpretation [...] HPF NONE BACU) Urine Source? Clean CatchURINALYSIS [id number] 15:39:00 Test Item Value Reference Range Interpretation [...] Urine Source? Clean Catch- CT HEAD/BRAIN W/O [id number] 13:23:00 [facility]Name: HARJINDER COLUNGA : 1965 Sex: M Name: HARJINDER COLUNGA FSED : 1965 Age/S: 55 / M [address]: [id number] Loc: [address] Phys: Jerry Roa MD [place], [place] [address] Acct: [id number] Dis Date: Status: REG ER PHONE #: Exam Date: 12/24/2020 1305 FAX #: Reason: dizzy EXAMS: CPT CODE: [id number] CT HEAD/BRAIN W/O CONT 43435 HISTORY: dizzy TECHNIQUE: Noncontrast 2.5 mm axial [...] : 1965 Age/S: 55 / M [address] Unit #: [id number] Loc: [address] Phys: Jerry Roa MD [place], [place] [address] Acct: [id number] Dis Date: Status: REG ER PHONE #: Exam Date: 12/24/2020 1305 FAX #: Reason: dizzy EXAMS: CPT CODE: [id number] CT HEAD/BRAIN W/O CONT 67058 (Continued) CC: Jerry Roa MD Technologist:Vicky Saba RT(R)(CT) CTDI: DLP: Trnscb Date/Time: 12/24/2020 (9607) [email or web address] Orig Print D/T: S: 12/24/2020 (2265) PAGE 2 Signed ReportBASIC METABOLIC [id number] 12:45:00 Test Item Value Reference Range Interpretation [...] >3 months. [Automated mess age] The system [employer] generated this result transmitted ref erence range: >=60. Th e reference range was not used to int erpret this result as normal/abnormal . CREATININE (test 0.77 mg/dL 0.55-1.3 N code = CREAT) BUN/CREATININE RATIO 20.8 10-20 H (test code = BUN/CREA) CALCIUM (test code = 8.1 mg/dL 8.0-10.5 N CA) [id number] 12:45:00 Test Item Value Reference Range Interpretation Comments TROPONIN-I (test code = TROPI) <0.015 ng/mL 0.00-0.056 N CREATINE KINASE (CK)2020-12-24 12:43:00 Test Item Value Reference Range Interpretation Comments CREATINE KINASE (CK) (test code = CK) 38 U/L 39-308 L BASIC METABOLIC [id number] 12:37:00 Test Item Value Reference Range Interpretation [...] >3 months. [Automated mess age] The system [employer] generated this result transmitted ref erence range: >=60. Th e reference range was not used to int erpret this result as normal/abnormal . CREATININE (test 0.77 mg/dL 0.55-1.3 N code = CREAT) BUN/CREATININE RATIO 20.8 10-20 H (test code = BUN/CREA) CALCIUM (test code = 8.1 mg/dL 8.0-10.5 N CA) [id number] 12:37:00 Test Item Value Reference Range Interpretation Comments TROPONIN-I (test code = TROPI) pg/mL 0-45 CBC W/O [id number] 12:33:00 Test Item Value Reference Range Interpretation [...] code 9.3 fL 6.7-11.0 N = MPV) [id number] 09:02:00 Test Item Value Reference Range Interpretation Comments GLUBED (test code = GLUBED) 96 MG/DL 74-106 N [id number] 20:42:00 Test Item Value Reference Range Interpretation Comments GLUBED (test code = GLUBED) 213 MG/DL 74-106 H [id number] 16:51:00 Test Item Value Reference Range Interpretation Comments GLUBED (test code = GLUBED) 209 MG/DL 74-106 H [id number] 15:04:00 Test Item Value Reference Range Interpretation Comments GLUBED (test code = GLUBED) 215 MG/DL 74-106 H [id number] 14:45:00 Test Item Value Reference Range Interpretation Comments ACT-ISTAT (test code = ACTI) 213 SEC 74-125 H [id number] 14:14:00 Test Item Value Reference Range Interpretation Comments ACT-ISTAT (test code = ACTI) 274 SEC 74-125 H [id number] 14:13:00 Test Item Value Reference Range Interpretation Comments ACT-ISTAT (test code = ACTI) 241 SEC 74-125 H [id number] 08:29:00 Test Item Value Reference Range Interpretation Comments GLUBED (test code = GLUBED) 115 MG/DL 74-106 H [id number] 19:03:00 Test Item Value Reference Range Interpretation Comments GLUBED (test code = GLUBED) 143 MG/DL 74-106 H [id number] 16:36:00 Test Item Value Reference Range Interpretation Comments GLUBED (test code = GLUBED) 314 MG/DL 74-106 H [id number] 12:15:00 Test Item Value Reference Range Interpretation Comments GLUBED (test code = GLUBED) 130 MG/DL 74-106 H COVID 19 Asymptomatic IH [id number] 09:47:00 Test Item Value Reference Range Interpretation Comments COVID 19 Asymptomatic IH AG (test NEGATIVE Negative code = COVNONPUIAG) Spec Comments: PATIENT GOING TO CATH LABPROTHROMBIN [id number] 09:38:00 Test Item Value Reference Range Interpretation [...] Aspirin Enoxaprin (Lovenox)Spec Comments: 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 30.7 88.8 IS PATIENT ON ANTICOAGULANTS ? 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 TO LABELING MACHINE OPERATOR 1,GLUBED 2020-07-03 08:24:00 Test Item Value Reference Range Interpretation Comments GLUBED (test code = GLUBED) 135 MG/DL 74-106 H BASIC METABOLIC [id number] 06:53:00 Test Item Value Reference Range Interpretation [...] 9.1 mg/dL 8.4-10.2 N CA) CBC W/AUTO [id number] 06:42:00 Test Item Value Reference Range Interpretation [...] = BA#) 0.05 x10 3/uL 0.0-0.1 N [id number] 21:27:00 Test Item Value Reference Range Interpretation Comments GLUBED (test code = GLUBED) 234 MG/DL 74-106 H [id number] 16:22:00 Test Item Value Reference Range Interpretation Comments GLUBED (test code = GLUBED) 195 MG/DL 74-106 H [id number] 12:04:00 Test Item Value Reference Range Interpretation Comments GLUBED (test code = GLUBED) 179 MG/DL 74-106 H [id number] 08:51:00 Test Item Value Reference Range Interpretation Comments GLUBED (test code = GLUBED) 124 MG/DL 74-106 H [id number] 20:53:00 Test Item Value Reference Range Interpretation Comments GLUBED (test code = GLUBED) 129 MG/DL 74-106 H [id number] 18:30:00 Test Item Value Reference Range Interpretation Comments GLUBED (test code = GLUBED) 174 MG/DL 74-106 H [id number] 12:32:00 Test Item Value Reference Range Interpretation Comments GLUBED (test code = GLUBED) 152 MG/DL 74-106 H [id number] 08:40:00 Test Item Value Reference Range Interpretation Comments GLUBED (test code = GLUBED) 98 MG/DL 74-106 N [id number] 20:46:00 Test Item Value Reference Range Interpretation Comments GLUBED (test code = GLUBED) 110 MG/DL 74-106 H - DUP LE ART [id number] 18:07:00 [facility] 1965 Sex: M FAX: Patrick Ponce Arm [phone] [place] [address] [place]: St: [facility] FAX: Nathanael Romero [phone] --------- Name: HARJINDER COLUNGA [facility] : 1965 Age/S: 55/M [address] Unit #: [id number] Loc: [address] [place] [address] Phys: Patrick Sr DPM R2 Acct: [id number] Dis Date: Status: ADM IN PHONE #: [phone] Exam Date: 06/30/2020 173 FAX #: [phone] Reason: WOUNDS EXAMS: CPT CODE: [id number] DUP LE FAREED INDERJIT 05393 STUDY: Bilateral lower extremity ultrasound with Doppler. [...] Signed Report (CONTINUED) FAX: Patrick Sr Arm [phone] [place] [address] [place]: St: ADM FAX: Nathanael Romero [phone] Name: HARJINDER COLUNGA [facility] : 1965 Age/S: 55/M [address] Unit #: [id number] Loc: [address] [place] [address] Phys: Patrick Sr DP R2 Acct: [id number] Dis Date: Status: ADM IN PHONE #: [phone] Exam Date: 06/30/2020 1731 FAX #: [phone] Reason: WOUNDS EXAMS: CPT CODE: [id number] DUP LE ART INDERJIT 97994 <Continued> at 1807 Reported and signed by: Donaldo Wen MD CC: Patrick Sr DPM; Nathanael Laureano Technologist: MARK Gallardo Trnscrd Date/Time/By: 06/30/2020 (1806) : By: [email or web address] PAGE 2 Signed Report FAX: Patrick Sr Arm [phone] [place] [address] [place]: St: ADM FAX: Nathanael Romero [phone] Name: HARJINDER COLUNGA [facility] : 1965 Age/S: 55/M [address] Unit #: [id number] Loc: [address] [place] [address] Phys: Patrick Sr DPM R2 Acct: [id number] Dis Date: Status: ADM IN PHONE #: [phone] Exam Date: 06/30/2020 173 FAX #: [phone] Reason: WOUNDS EXAMS: CPT CODE: [id number] DUP LE ART INDERJIT 06294 <Continued> Orig Print D/T: S: 06/30/2020 (1809) PAGE 3 Signed Report- DOP ART 1-2 LEVELS [id number] 18:07:00 [facility] : 1965 Sex: M FAX: Patrick Ponce Arm [phone] [place] [address] [place]: St: [facility] FAX: Pavel Hicks MD [phone] Name: HARJINDER COLUNGA [facility] [place] [facility] 1965 Age/S: 55/M [address] Unit #: [id number] Loc: [address] [place] [address] Phys: Patrick Sr Armen DPM R2 Acct: [id number] Dis Date: Status: ADM IN PHONE #: [phone] Exam Date: 06/30/2020 173 FAX #: [phone] Reason: WOUNDS, HX OF SMOKING, NON PALP PULSES EXAMS: CPT CODE: [id number] DOP ART 1-2 LEVELS INDERJIT 70201 STUDY: Bilateral lower extremity ultrasound with Doppler. [...] Signed Report (CONTINUED) FAX: Patrick Sr Arm [phone] [address] [place]: [facility]: ADM FAX: Pavel Hicks MD [phone] Name: HARJINDER COLUNGA [facility] : 1965 Age/S: 55/M [address] Unit #: [id number] Loc: [address] [place] [address] Phys: Patrick Sr DPM R2 Acct: [id number] Dis Date: Status: ADM IN PHONE #: [phone] Exam Date: 06/30/2020 1731 FAX #: Reason: WOUNDS, HX OF SMOKING, NON PALP PULSES EXAMS: CPT CODE: [id number] DOP ART 1-2 LEVELS [facility] [address] <Continued> at 1807 Reported and signed by: Donaldo Wen MD CC: Patrick Sr DPM; Pavel Muñoz MD Technologist: MARK Gallardo Trnscrd Date/Time/By: 06/30/2020 (1806) : By: [email or web address] PAGE 2 Signed Report FAX:Patrick Sr Arm [phone] [address] [place]: [facility]: ADM FAX: Pavel Hicks MD [phone] Name: HARJINDER COLUNGA : 1965 Age/S: 55/M [address] Unit #: [id number] Loc: [address] [place] [address] Phys:Patrick Sr DPM R2 Acct: [id number] Dis Date: Status: ADM IN PHONE #: [phone] ExamDate: 06/30/2020 1731 FAX #: [phone] Reason: WOUNDS, HX OF SMOKING, NON PALP PULSES EXAMS: CPTCODE: [id number] DOP ART 1-2 LEVELS INDERJIT 41919 <Continued> Orig Print D/T: S: 06/30/2020 (6900) PAGE 3 Signed [id number] 16:25:00 Test Item Value Reference Range Interpretation Comments GLUBED (test code = GLUBED) 244 MG/DL 74-106 H [id number] 12:16:00 Test Item Value Reference Range Interpretation Comments GLUBED (test code = GLUBED) 246 MG/DL 74-106 H [id number] 08:54:00 Test Item Value Reference Range Interpretation Comments GLUBED (test code = GLUBED) 172 MG/DL 74-106 H [id number] 21:00:00 Test Item Value Reference Range Interpretation Comments GLUBED (test code = GLUBED) 118 MG/DL 74-106 H [id number] 15:58:00 Test Item Value Reference Range Interpretation Comments GLUBED (test code = GLUBED) 249 MG/DL 74-106 H [id number] 12:28:00 Test Item Value Reference Range Interpretation Comments GLUBED (test code = GLUBED) 285 MG/DL 74-106 H - MRI LOW EXT W/O CONT [id number] 11:17:00 [facility] : 1965 Sex: M FAX: Patrick Ponce Arm [phone] [place] [address] [place]: St: ADM FAX: Pavel Hicks MD [phone] Name: HARJINDER COLUNGA [facility] [place] [facility] 1965 Age/S: 55/M [address] Unit #: [id number] Loc: [address] [place] [address] Phys: Patrick Sr DPM R2 Acct: [id number] Dis Date: Status: ADM IN PHONE #: [phone] Exam Date: 06/29/2020 0959 FAX #: [phone] Reason: INDERJIT le WOUNDS IN FORE FOOT EXAMS: CPT CODE: [id number] MRI LOW EXT W/[place] [address] EXAM: - MRI LOW EXT W/O CONT [...] DPM; Pavel Muñoz MD Technologist: Wendy Agee Trnwvrd Date/Time/By: 06/29/2020 (7537) : By: [email or web address] PAGE 1 Signed Report FAX: Patrick Sr Arm [phone] [place] [address] [place]: St: ADM FAX:Pavel Hicks MD [phone] Name: HARJINDER COLUNGA [facility] : 1965 Age/S: 55/M [address] Unit #: [id number] Loc: [address] [address] Phys: Patrick Sr DPM R2 Acct: [id number] Dis Date: Status: ADM IN PHONE #: [phone] Exam Date: 06/29/2020 0959 FAX #: [phone] Reason: INDERJIT leWOUNDS IN FORE FOOT EXAMS: CPT CODE: [id number] [place] EXT W/[place] [address] <Continued> Orig Print D/T: S: 06/29/2020 (5010) PAGE 2 Signed Report- MRI LOW EXT W/O CONT RT 2020-06-29 10:16:00 [facility] : 1965 Sex: M FAX: Patrick Ponce Arm [phone] [place] [address] [place]: St: ADM FAX: Pavel Hicks MD [phone] Name: HARJINDER COLUNGA [facility] : 1965 Age/S: 55/M [address] Unit #: [id number] Loc: [address] [place] [address] Phys: Patrick Sr DPM R2 Acct: [id number] Dis Date: Status: ADM IN PHONE #: [phone] ExamDate: 06/29/2020 0959 FAX #: [phone] Reason: INDERJIT FOOT WOUNDS EXAMS: CPT CODE: [id number] MRI LOW EXT W/[place] [address] EXAM: - MRI LOW EXT W/O CONT [...] 1 Signed Report FAX: Patrick Sr Arm [phone] [place] [address] [place]: St: ADM FAX: Pavel Hicks MD [phone] Name: HARJINDER COLUNGA [place] : 1965 Age/S: 55/M [address] Unit #: [id number] Loc: [address] [address] Phys: Patrick Sr DPM R2 Acct: [id number] Dis Date: Status: ADM IN PHONE #: [phone] Exam Date: 06/29/2020958 FAX#: [phone] Reason: INDERJIT FOOT WOUNDS EXAMS: CPT CODE: [id number] MRI LOW EXT W/[place] [address] <Continued> Orig Print D/T: S: 06/29/2020 (4346) PAGE 2 Signed ReportCOMPREHENSIVE METABOLIC [id number] 09:31:00 Test Item Value Reference Range Interpretation [...] N (test code = ALKP) COMPREHENSIVE METABOLIC [id number] 09:30:00 Test Item Value Reference Range Interpretation [...] U/L 38-126 N (test code = ALKP) [id number] 09:28:00 Test Item Value Reference Range Interpretation Comments GLUBED (test code = GLUBED) 184 MG/DL 74-106 H CBC W/AUTO [id number] 07:48:00 Test Item Value Reference Range Interpretation [...] BA#) 0.03 x10 3/uL 0.0-0.1 N SED [id number] 07:48:00 Test Item Value Reference Range Interpretation Comments SED RATE (test code = SEDW) 85 mm/hr 0-20 H HGBA1C - GLYCOSYLATED [id number] 07:08:00 Test Item Value Reference Range Interpretation [...] with these hemo globin variants. CBC W/AUTO [id number] 06:43:00 Test Item Value Reference Range Interpretation [...] BA#) 0.03 x10 3/uL 0.0-0.1 N SED [id number] 06:43:00 Test Item Value Reference Range Interpretation [...] LDL Cholesterol<1 00mg/ dL: Desirable L DL-C muotzgpjuwejn84 0-159 mg/dL: Borderli ne High Risk LDL-C udyrsqyhlcduv29 0-189 mg/dL: High ris k LDL-C concentra tion HDL-LDL Cholest adi is affected by a number of facto rs suchas smoking, age and sex.~~~~~~~~~~~ ~~~~~ ~~~~~~~~~~~~~~~ ~~~~~ ~~~~~~~~~~~~~~~ ~~~~~ ~~~~ C REACTIVE [id number] 05:49:00 Test Item Value Reference Range Interpretation [...] LDL Cholesterol<1 00mg/dL : Desirable LDL -C ugrtknuaguqgh74 0-159mg /dL: Borderline High Risk LDL-C qgfezhhchrtfz10 0-189mg /dL: High risk LDL-C concentration H DL-LDL Cholesterol is affected by a n umber of factors such as smoking, age an d sex.~~~~~~~~~~~ ~~~~~~~ ~~~~~~~~~~~~~~~ ~~~~~~~ ~~~~~~~~~~~~~~~ ~~~~~ C REACTIVE [id number] 05:42:00 Test Item Value Reference Range Interpretation Comments C REACTIVE PROTEIN (test code = 51.3 mg/L 0-9 H CRP) [id number] 20:47:00 Test Item Value Reference Range Interpretation Comments GLUBED (test code = GLUBED) 253 MG/DL 74-106 H BASIC METABOLIC [id number] 17:16:00 Test Item Value Reference Range Interpretation Comments SODIUM (test code = 130 mmol/L 137-145 L NA) POTASSIUM (test code 4.6 mmol/L 3.4-5.0 N = K) CHLORIDE (test code = 93 mmol/L 98-107 L CL) CARBON DIOXIDE (test 29 mmol/L 22-30 N code = CO2) GLUCOSE (test code = 404 mg/dL 74-106 HH Critica l Value GLU) reported toFirs t Name:TRB1041 [place] Name:RESULTS RE AD BACK AND VERIFIEDby C.LAB.AC2, [...] 9.1 mg/dL 8.4-10.2 N CA) LIVER FUNCTION [id number] 17:16:00 Test Item Value Reference Range Interpretation [...] 38-126 N (test code = ALKP) LACTIC [id number] 17:04:00 Test Item Value Reference Range Interpretation Comments LACTIC ACID (test code = LACT) 1.7 mmol/L 0.7-2.0 N - XR FOOT 3 + V [id number] 17:00:00 [facility] : 1965 Sex: M FAX: Giovany Landa MD [address] [place] [address] [place]: [address] St: REG Name: HARJINDER COLUNGA [facility] : 1965 Age/S: 55/M [address] Unit #: [id number] Loc: [place] [address] Phys: Giovany Landa MD R1 Acct: [id number] Dis Date: Status: REG ER PHONE #: [phone] Exam Date: 06/28/20201648 FAX #: [phone] Reason: left foot wound EXAMS: CPT CODE: [id number] XR FOOT 3 + [place] [address] EXAM: - XR FOOT 3 + V [...] signed by: Michael Bai MD CC: Giovany Lnada MD Technologist: Lindsey Ha; STUDENT 2ND YEAR Trnwvrd Date/Time/By: 06/28/2020 (1700) : By: [email or web address] PAGE 1Signed Report FAX: Giovany Landa MD [address] [place] [address] [place]: St: REG Name: HARJINDER COLUNGA [facility] : 1965 Age/S: 55/M [address] Unit #: [id number] Loc: [place] [address] Phys: Giovany Landa MD R1 Acct: [id number] Dis Date: Status: REG ER PHONE #: [phone] Exam Date: 06/28/20201648 FAX #: [phone] Reason: left foot wound EXAMS: CPT CODE: [id number] XR FOOT 3 + [place] [address] <Continued> Orig Print D/T: S: 06/28/2020 (9133) PAGE 2 Signed ReportUA RFLX MICR CULT IF [id number] 16:19:00 Test Item Value Reference Range Interpretation [...] oth srcSOURCE OF URINE: CLEAN CATCHCBC W/AUTO [id number] 15:48:00 Test Item Value Reference Range Interpretation [...] 3/uL 0.0-0.1 N - XR CHEST 1 [id number] 15:36:00 [facility] : 1965 Sex: M FAX: Mi Ellis NP [place]: St: PRE -------- Name: HARJINDER COLUNGA [facility] : 1965 Age/S: 55/M [address] Unit #: [id number] Loc: [place] [address] Phys: Mi Ellis NP Acct: [id number] Dis Date: Status: PRE ER PHONE #: [phone] Exam Date: 06/28/2020 1533 FAX #: [phone] Reason: CODE SEPSIS EXAMS: CPT CODE: [id number] XR CHEST 1 V 86420 EXAMINATION: Frontal chest radiograph INDICATION: Code sepsis COMPARISON: 02/27/2016 FINDINGS: Clear lungs. No pleural effusion or pneumothorax. Normal cardiomediastinalsilhouette. IMPRESSION: No acute abnormality identified. Electronically Signed by Amanda Avila 06/28/2020 at 1536 Reported and signed by: Richard Lopez M.D. CC: Mi Ellis NP Technologist: Lindsey Ha; STUDENT 2ND YEAR [facility] Date/Time/By: 06/28/2020 (9164) : By: [email or web address] PAGE 1 SignedReport FAX: Mi Ellis NP [place]: St: PRE Name: HARJINDER COLUNGA [facility] : 1965 Age/S: 55/M [address]: [id number] Loc: [place] [address] Phys: Mi Ellis NP Acct: [id number] Dis Date: Status: PRE ER PHONE #: [phone] Exam Date: 06/28/2020 1533 FAX #: [phone] Reason: CODE SEPSIS EXAMS: CPT CODE: [id number] XR CHEST 1 V 83098 <Continued> Orig Print D/T: S: 06/28/2020 (1539) PAGE 2 Signed Report- US EXTREM NON VASC [id number] 15:47:00[facility] COL[facility]GA : 1965 Sex: M PatientName: HARJINDER COLUNGA Unit No: [id number] EXAMS: CPT CODE: [id number] US EXTREM NON VASC LTD 85867 HISTORY: Infection Location: C3 FINDINGS: Sonographic images of the leg were obtained. No soft tissue fluid collection demonstrated. No cystic or solid mass identified. IMPRESSION: 1. Soft tissue edema without discrete dominant fluid collection or cystic or solid mass lesion. at 1547 Reported and signed by: Donaldo Tang M.D. CC: [place] [employer] Technologist: Ely Lopez RDMS Trnscrbd D/ (1547) MerRXC2 Probe: [id number] Orig Print D/T: S: 02/27/2020 (1550) Probe: CAMELIA Vora NAME: [address] PHYS: [email or web address] - [place], [place] [address] : 1965 AGE: 54 SEX: M LOC: VANNA PHONE #: [phone] EXAM DATE: 02/27/2020 STATUS: REG ER FAX #: [phone] RAD NO: Page 1 Signed Report BASIC METABOLIC [id number] 15:20:00 Test Item Value Reference Range Interpretation [...] 70-110 HH ON 12/08 AT GLU) 1520, a.[facility].8 6 CALLED TO LUDIN LANG. The rep [...] NORMAL code = LIPINDEX) Index/DL GLUCOSE BEDSIDE [id number] 14:32:00 Test Item Value Reference Range Interpretation Comments GLUCOSE BEDSIDE 459 MG/DL 70-119 HH LOW/HIGH KVNG RT VALUE - TESTING (test code = ACTION REQUIRED GLUBED) - CT ABD PELVIS W/O [id number] 16:45:00 Name: HARJINDER COLUNGA [facility] FSED : 1965 Age/S: 54 / M [address] [facility] [address] Unit #: [id number] Loc: [address] Phys: Brennan Dupont MD [place], [place] [address] Acct: [id number] Dis Date: Status: REG ER PHONE #: Exam Date: 10/08/2019 1333 FAX #: Reason: R sided flan pain EXAMS: CPT CODE: [id number] CT ABD PELVIS W/O CONT 12770 EXAM: CT of the abdomen and pelvis [...] acute abdominal or pelvic abnormalities. Location code: [facility] at 1645 Reported and signed by: Feliciano Mcdaniel M.D. 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 (test code = UAMICRO) COMPREHENSIVE METABOLIC [id number] 13:06:00 Test Item Value Reference Range Interpretation [...] 50-139 N code = ALKP) CBC W/AUTO [id number] 12:54:00 Test Item Value Reference Range Interpretation [...] REQUIRED (test code NO = MDIFF) CHEM [id number] 14:06:001.11[facility]annCHEM IFNPH8981-23-88 14:06:0078 [facility] AdgbhblRUOVUETBRA9263-86-25 14:06:66287Gavayruy HermannHEMATOLOGY 2016-01-03 14:06:00 Test Item Value Reference Range Interpretation Comments PTT (test code = PTT) 24.1 s 22.9-35.8 [facility] CzrjdtmYVDUQGZCZC4351-03-29 06:35:004.52[facility] HermannHEMATOLOGY 2016-01-03 06:35:0013.3[facility] FuhciizJPEKCVTHSH1945-91-45 06:35:009.9[facility] SklbvhdWRXVDHNPHX9775-99-04 06:35:002.6[facility] GckuvtjHXNDSSFMKB7045-46-13 06:35:00Normal (01/03/16 1:35 AM)[facility] AckvnwoZSQPWDMXFY5279-76-45 06:35:00 Normal (01/03/16 1:35 AM)[facility] LcpqjaqFMXXGQNNCJ2539-01-18 06:35:0019.4 [facility] DgpzdyuLLKSXVLHMZ8394-32-23 06:35:0074.2[facility] HermannHEMATOLOGY 2016-01-03 06:35:000.1[facility] AksnhrtEANGYZAOGE4427-36-25 06:35:000.7[facility] VcpfpsvDXQLOYVRDF3803-46-35 06:35:000.1[facility] SzsqycaMIDVZJDEBP2057-42-52 06:35:000.6[facility] JxkpeomRYXAYWSJOK2819-44-87 06:35:000.8[facility] KAEOJKXANM4685-07-48 06:35:005.0[facility] HermannCARDIAC CCWXHQZ7299-29-06 06:35:0047[facility] HermannCARDIAC SADEPBC5816-88-64 06:35:0011[facility] CHEM EMSWO7195-66-50 06:35:04894Wuurgghu HermannCHEM RZBUV0275-75-34 06:35:00 13.5[facility]annCHEM NTQMT4170-53-67 06:35:0024[facility] HermannCHEM PANEL 2016-01-03 06:35:003.5[facility]annCHEM YXGGA4709-58-73 06:35:003.1[facility] HermannCHEM PKBHL2554-66-67 06:35:86955Ijbjgckj HermannCHEM XCDEN5595-70-16 06:35:18900Tewhaglz HermannCHEM DPLIC1064-53-97 06:35:008.2[facility] HermannCHEM ZQMQD3054-10-26 06:35:009[facility]annCHEM BRMDN4513-44-23 06:35:006.3 [facility]annCHEM VHSJY4184-43-26 06:35:003.2[facility]annCHEM PANEL 2016-01-03 06:35:0061[facility]annCHEM RLXON6946-23-30 06:35:000.5[facility]annCHEM DJDFK7302-34-91 06:35:0011[facility]annCHEM PNYRK9139-69-14 06:35:001.0[facility]annCHEM FZLJJ5585-51-31 06:35:0022[facility]annCHEM AXHHU6971-21-00 06:35:000.88[facility]annCHEM DIAZC8534-19-55 06:35:008 [facility]annCHEM EJUPG7084-18-79 06:35:68678Mgogpaut HermannCHEM PANEL 2016-01-03 06:35:001.8[facility] EunzbqkNYBOMNPZSL2994-19-65 06:35:007.9[facility] AmsqmmtBXUIVMKXOM7604-87-65 06:35:44037Htrmrniq ZwdryxmWDLNELXMWK3135-95-30 06:35:0034.8[facility] EfqlebfGEHWVJPBYD2797-73-66 06:35:00 Test Item Value Reference Range Interpretation Comments MCH (test code = MCH) 30.9 pg 27.0-31.0 [facility] ZyumprrXMAIFYYCTM0462-03-75 06:35:0088.8[facility] HermannHEMATOLOGY 2016-01-03 06:35:0040.2[facility] HjmrjxcDCMVRLXYWD3525-77-15 06:35:0014.0[facility] MykgllhMNNUSNFEMB5012-51-74 06:35:0012.8[facility]annCHEM YQTCL8195-53-95 10:18:008.1[facility]annCHEM LJKCA2990-70-03 10:18:0026[facility]annCHEM VGNYN1699-14-81 10:18:48709Ubtuzleb HermannCHEM ENSVB1761-33-50 10:18:009 [facility]annCHEM VKZFM9227-30-39 10:18:004.0[facility] HermannCHEM PANEL 2015-12-19 10:18:79777Gkoghlrl HermannCHEM NJJCP3751-00-73 10:18:24116Exqkeabk HermannCHEM YIPJE6467-52-57 10:18:29202Orugpvot HermannCHEM TIUPI6203-10-22 10:18:000.76[facility] HermannCHEM PTXCQ5196-69-83 10:18:0012.0[facility] BRUNPBQBDU9828-25-44 10:18:00 Test Item Value Reference Range Interpretation Comments MCH (test code = MCH) 30.4 pg 27.0-31.0 [facility] SqkchqfYJROPPRYWT5426-24-25 10:18:52745Sabljxgq HermannHEMATOLOGY 2015-12-19 10:18:0034.3[facility] ZewnigmQSMSWIJZZF8190-26-68 10:18:008.2[facility] RjltyvkCPBAWWNCAM9270-18-19 10:18:0012.4[facility] JwtylcdDGCYODRXNB0880-78-62 10:18:0010.3[facility] AzcvdkzIJNLTCNRAD9460-26-94 10:18:004.51[facility] WJKFBFWMIP2804-62-23 10:18:0088.7[facility] KinwrclRGCYYNRGTC1561-12-01 10:18:00 13.7[facility] LyyyyjkZXVXBTXDQJ6642-12-43 10:18:0040.0[facility] HermannHEMATOLOGY 2015-12-19 10:18:0018.9[facility] DkiqltzOJKTSWBCQP9104-39-31 10:18:0073.5[facility] AldphylOYCOHFAKML8645-66-28 10:18:006.7[facility] RqtklhfPKDWZLWHVW4025-76-59 10:18:007.6[facility] ItahjzrWQQBDQYQCK4451-68-79 10:18:000.4[facility] TURETXSEXE2670-01-21 10:18:000.0[facility] VujswsaLEQAHHTAWS0645-19-99 10:18:000.7 [facility] EqhuvueSYIBPFOKXR9571-02-42 10:18:000.5[facility] HermannHEMATOLOGY 2015-12-19 10:18:001.9[facility] YmmvrinDWPKWMPQID5026-58-63 10:18:000.0[facility] HermannCHEM ZOYKF0194-83-79 04:30:0090[facility] HermannCHEM BBDDN5309-51-48 04:30:007.8[facility] HermannCHEM LJUGL8849-61-19 04:30:000.6[facility] HermannCHEM UGTBJ5037-42-02 04:30:0062[facility] HermannCHEM ANRMY7499-31-92 04:30:0010 [facility]annCHEM GSCSA1570-92-86 04:30:0013.0[facility] HermannCHEM PANEL 2015-12-13 04:30:0024[facility] HermannCHEM HAZPL8977-49-47 04:30:001.34[facility] HermannCHEM UCQXO5257-01-42 04:30:62984Sjqigktm HermannCHEM NGKAA8546-55-73 04:30:0015[facility] HermannCHEM TRSHK4465-77-79 04:30:0017[facility] HermannCHEM WKGLR1517-93-58 04:30:003.7[facility] HermannCHEM WTPJO9055-69-69 04:30:0011 [facility] HermannCHEM OPUGV0250-15-59 04:30:004.0[facility] HermannCHEM PANEL 2015-12-13 04:30:008.6[facility] HermannCHEM CLLHV3563-37-99 04:30:23229Ujvixxbf HermannCHEM TKFFN5582-59-23 04:30:0099[facility] HermannCHEM SDMOO3003-84-63 04:30:004.1[facility] HermannCHEM HYMIX0267-62-24 04:30:000.9[facility] LVVSUQKLJU1292-08-46 04:30:000.4[facility] XuorurgLXVFXAIWAP9736-67-45 04:30:000.0 [facility] GvcqhocZXZHXJDOFY6215-40-06 04:30:001.3[facility] HermannHEMATOLOGY 2015-12-13 04:30:006.1[facility] QjfvfetHVZBNOIJGP8204-65-80 04:30:000.3[facility] ZnrvhdxNMJXZDRETQ2188-01-11 04:30:000.4[facility] NqelmeaATWTJTBUXI2080-13-81 04:30:005.5[facility] MnawvmbYPRYDBPJYD1861-14-57 04:30:0077.4[facility] ZRXUCTMRYP6594-77-13 04:30:0016.4[facility] LfzkxruOURLPLESPT6701-42-03 04:30:00 340[facility] UfnhublBGHUQFUKUE2259-62-87 04:30:008.4[facility] HermannHEMATOLOGY 2015-12-13 04:30:0034.2[facility] LgshrcrDGEZJXTXUC6852-84-49 04:30:0012.8[facility] XncvjglWBPGZAXIDB9440-33-49 04:30:0015.3[facility] CxpmlmaAHJUDDKAIG8745-67-59 04:30:0044.7[facility] IvnybifGUPFVZGYEG3793-96-59 04:30:00 Test Item Value Reference Range Interpretation Comments MCH (test code = MCH) 30.6 pg 27.0-31.0 [facility] LqaeljmPNXYWJOYCC3433-75-38 04:30:0089.4[facility] HermannHEMATOLOGY 2015-12-13 04:30:007.9[facility] MlsipuzCXAVWZVYOV1465-87-13 04:30:004.99[facility] KjxbztrKCRRYSQYEV7180-42-92 04:30:00<2[facility] UyrshzrASDMCMYZYR3820-12-37 04:30:00<0.003[facility] VfmrdqhWMYUNQIMLG9674-92-76 04:30:00<3[facility] KactjunNMVLVEZCUG0907-19-85 04:30:004.1[facility]
[2023-03-07 20:42] LABS: Absolute Lymphocytes (CBC) 0.9 K/uL (0.7-4.9); Hematocrit 34.2 % (39.6-49.0); Lymphocytes % 15.7 % (15.3-44.8); MCV 91.4 fL (80-100); MPV 8.4 fL (7.6-11.3); Platelets 269 thou/uL (152-406); RBC Red Blood Cell Count 3.74 M/uL (4.33-5.43)
[2023-03-07 20:47] LABS: Protime INR 1.07
[2023-03-07 21:01] LABS: ALT/SGPT 18 U/L (16-61); AST/SGOT 10 U/L (15-37); Albumin 3.5 g/dL (3.4-5.0); Alkaline Phosphatase 70 U/L (45-117); BUN Blood Urea Nitrogen 21 mg/dL (7-18); Bicarbonate 27 mEq/L (21-32); Bilirubin Total 0.3 mg/dL (0.2-1.0); Glomerular Filtration Rate 73 ml/min (=/>90); Glucose Level 183 mg/dL (74-106); Lipase 18 U/L (13-75); Magnesium 1.9 mg/dL (1.6-2.4); NT PRO-BNP 920 pg/mL (<125); Potassium 4.7 mEq/L (3.5-5.1); Protein, Total 8.1 g/dL (6.4-8.2); Sodium Level 134 mEq/L (136-145); Troponin High Sensitivity 4.7 pg/mL (<58.9)
--- NOTE | 2023-03-07 21:01 | RAD REPORT ---
EXAM DESCRIPTION: CT - Abdomen Pelvis Wo Contrast - 03/07/2023 8:49 pm CLINICAL HISTORY: Abdominal pain. ABD PAIN COMPARISON: Abdomen Pelvis W Contrast dated 01/25/2023 TECHNIQUE: CT imaging of the abdomen and pelvis was performed without contrast. Solid organ, bowel a nd vascular assessment is limited due to lack of IV and oral contrast. All CT scans are performed using dose optimization technique as appropriate and may include automated exposure control or mA/KV adjustment according to patient size. FINDINGS: The lower lung bethea are clear.Mild gallbladder wall calcification. The liver, spleen, pancreas, adrenal glands and kidneys are within normal limits for a limited non-co ntrast examination. No bowel obstruction, free air, free fluid or abscess. Moderate stool is present throughout the colon . The appendix is normal. Grade 2 anterolisthesis L5 on S1. IMPRESSION: No acute intra-abdominal or pelvic findings. Moderate stool throughout the colon. A limited non-contrast examination was performed as detailed.
[2023-03-07 21:15] LABS: Bilirubin Direct < 0.1 mg/dL (0-0.2); Bilirubin Indirect, Calculated ND mg/dL (0.2-0.8)
[2023-03-07 21:39] LABS: Specific Gravity 1.007 (1.005-1.030); Urine Bilirubin NEGATIVE (Negative); Urine Blood Negative (Negative); Urine Clarity Clear (Clear); Urine Color Colorless (Yellow); Urine Glucose NEGATIVE (Negative); Urine Protein NEGATIVE (Negative); Urine Urobilinogen Normal (Normal)
--- NOTE | 2023-03-07 21:55 | RAD REPORT ---
EXAM DESCRIPTION: US - Abdomen Exam Limited - 03/07/2023 9:31 pm CLINICAL HISTORY: ABD PAIN COMPARISON: Renal Ultrasound-Complete dated 09/27/2022; Abdomen Pelvis Wo Contrast dated 03/07/2023 FINDINGS: The gallbladder demonstrates multiple shadowing gallstones. No pericholecystic fluid or ga llbladder wall thickening. The common bile duct is mildly dilated measuring 8-9 mm. The liver demonstrates no findings of intrahepatic biliary dilatation. IMPRESSION: Cholelithiasis. Mildly dilated common bile duct suspected. Follow-up MRCP would be helpful.
[2023-03-07 22:16] LABS: Barbiturates NEGATIVE (NEGATIVE); Benzodiazepines NEGATIVE (NEGATIVE); Cocaine NEGATIVE (NEGATIVE); METHAMPHETAM NEGATIVE (NEGATIVE); Methadone NEGATIVE (NEGATIVE); Opiates NEGATIVE (NEGATIVE); Phencyclidine NEGATIVE (NEGATIVE); THC Cannibis NEGATIVE (NEGATIVE)
--- NOTE | 2023-03-07 22:26 | ER ---
Nurse's Notes [facility] Name: Shivam Block Age: 57 yrs Sex: Male : 1965 Arrival Date: 03/07/2023 Time: 19:51 Bed 17 Private MD: Diagnosis: Other cholelithiasis without obstruction Presentation: 03/07 20:05 Chief complaint: EMS states: Pt called EMS for upper abdominal pain and kidney pain. jb4 Coronavirus screen: At this time, the client does not indicate any symptoms associated with coronavirus-19. Ebola Screen: No symptoms or risks identified at this time. Initial Sepsis Screen: Does the patient meet any 2 criteria? No. Patient's initial sepsis screen is negative. Does the patient have a suspected source of infection? No. Patient's initial sepsis screen is negative. Risk Assessment: Do you want to hurt yourself or someone else? Patient reports no desire to harm self or others. Onset of symptoms was March 07, 2023. Transition of care: patient was not received from another setting of care. 20:05 Method Of Arrival: EMS: [facility] jb4 20:05 Acuity: TERRANCE 3 jb4 Triage Assessment: 20:07 General: Appears in no apparent distress. comfortable, Behavior is calm, cooperative, jb4 appropriate for age. Pain: Complains of pain in low back area and abdomen Pain does not radiate. Pain currently is 8 out of 10 on a pain scale. EENT: No deficits noted. Neuro: Level of Consciousness is awake, alert, obeys commands, Oriented to person, place, time, situation. Cardiovascular: Patient's skin is warm and dry. Respiratory: Airway is patent Respiratory effort is even, unlabored, Respiratory pattern is regular, symmetrical. GI: No signs and/or symptoms were reported involving the gastrointestinal system. : No signs and/or symptoms were reported regarding the genitourinary system. Derm: Skin is intact, Skin is pink, warm \T\ dry. Musculoskeletal: Circulation, motion, and sensation intact. Range of motion: intact in all extremities. Historical: - Allergies: 20:07 Fish Containing Products; jb4 20:07 SEAFOOD; jb4 20:07 Azithromycin; jb4 - PMHx: 20:07 Atrial fibrillation; Hypertensive disorder; Myocardial infarction; diabetes mellitus; jb4 Rheumatoid arthritis; Seizure; - PSHx: 20:07 bilateral BKA; jb4 - Immunization history:: Adult Immunizations up to date. - Family history:: not pertinent. Screenin/18 00:30 [facility] ED Fall Risk Assessment (Adult) History of falling in the last 3 months, jb4 including since admission No falls in past 3 months (0 pts) Confusion or Disorientation No (0 pts) Score/Fall Risk Level 0 - 2 = Low Risk. Abuse screen: Denies threats or abuse. Nutritional screening: No deficits noted. Tuberculosis screening: No symptoms or risk factors identified. Assessment: 03/07 20:09 Reassessment: see triage note. jb4 21:16 Reassessment: Patient appears in no apparent distress at this time. Patient and/or jb4 family updated on plan of care and expected duration. Pain level reassessed. Patient is alert, oriented x 3, equal unlabored respirations, skin warm/dry/pink. 22:00 Reassessment: Patient appears in no apparent distress at this time. Patient and/or jb4 family updated on plan of care and expected duration. Pain level reassessed. Patient is alert, oriented x 3, equal unlabored respirations, skin warm/dry/pink. 22:54 Reassessment: Patient appears in no apparent distress at this time. Patient and/or jb4 family updated on plan of care and expected duration. Pain level reassessed. Patient is alert, oriented x 3, equal unlabored respirations, skin warm/dry/pink. 23:30 Reassessment: attempted to call report, was hung up on. Called back was put on hold for jb4 10 minutes, told to call back in 30 minutes as the receiving was on break. 03/08 00:00 Reassessment: Patient appears in no apparent distress at this time. Patient and/or jb4 family updated on plan of care and expected duration. Pain level reassessed. Patient is alert, oriented x 3, equal unlabored respirations, skin warm/dry/pink. 00:45 Reassessment: Patient appears in no apparent distress at this time. Patient and/or jb4 family updated on plan of care and expected duration. Pain level reassessed. Patient is alert, oriented x 3, equal unlabored respirations, skin warm/dry/pink. 01:17 Reassessment: attempted to call report, was hung up on. jb4 Vital Signs: 03/07 20:05 BP 139 / 70; Pulse 71; Resp 16; Temp 98.7(O); Pulse Ox 100% on R/A; Weight 86.18 kg jb4 (R); Height 4 ft. 0 in. (R); Pain 8/10; 21:16 BP 184 / 71; Pulse 61; Resp 16; Pulse Ox 100% on R/A; jb4 22:00 BP 188 / 76; Pulse 59; Resp 16; Pulse Ox 99% on R/A; jb4 22:54 BP 173 / 74; Pulse 62; Resp 13; Pulse Ox 98% on R/A; jb4 23:21 BP 157 / 70; Pulse 69; Resp 16; Pulse Ox 98% on R/A; jb4 03/08 00:30 BP 125 / 42; Pulse 68; Resp 16; Pulse Ox 96% on R/A; jb4 03/07 20:05 Body Mass Index 57.98 (86.18 kg, 121.92 cm) jb4 03/07 20:05 Pain Scale: Adult jb4 [place] Coma Score: 03/07 20:18 Eye Response: spontaneous(4). Motor Response: obeys commands(6). Verbal Response: bettina oriented(5). Total: 15. ED Course: 19:54 Patient arrived in ED. bettina 19:54 Salvador Cevallos MD is Attending Physician. bettina 20:04 Scooter Juarez, RN is Primary Nurse. jb4 20:07 Triage completed. jb4 20:07 Arm band placed on right wrist. jb4 20:10 XRAY Chest (1 view) In Process Unspecified. EDMS 20:35 Inserted saline lock: 20 gauge in left antecubital area, using aseptic technique. Blood wm collected. 20:35 Troponin HS Sent. wm 20:35 PT-INR Sent. wm 20:35 NT PRO-BNP Sent. wm 20:35 Magnesium Sent. wm 20:35 LFT's Sent. wm 20:35 CBC with Diff Sent. wm 20:35 Basic Metabolic Panel Sent. wm 20:36 Lipase Sent. wm 20:36 Lactate w/ 2H reflex if indic. Sent. wm 20:51 CT Abd/Pelvis - Without Contrast In Process Unspecified. EDMS 21:10 Salvador Miller PA is PHCP. cp 21:30 UDS Sent. wm 21:30 Urinalysis w/ reflexes Sent. wm 21:33 US Abdomen Limited In Process Unspecified. EDMS 21:44 Door closed. Lights dimmed. Cleaned of incontinence. changed diaper, provided pericare, wm pt tolerated well. 23:20 IV discontinued, intact, bleeding controlled, No redness/swelling at site. Pressure jb4 dressing applied, Phlebitis noted to the LAC. IV discontinued. Missed attempt(s): 22 gauge in left in right hand. Bleeding controlled, band aid applied, catheter tip intact. Inserted saline lock: 18 gauge in right antecubital area, using aseptic technique. 03/08 00:30 Patient has correct armband on for positive identification. Bed in low position. Call jb4 light in reach. Side rails up X 1. 00:30 No provider procedures requiring assistance completed. jb4 Administered Medications: 03/07 20:37 Drug: NS 0.9% IV 1000 ml IV at 125 ml/hr continuous Route: IV; Rate: 125 ml/hr; Site: jb4 left antecubital; 22:50 Drug: morphine IVP or IV 4 mg IVP once over 4 mins Route: IVP; Infused Over: 4 mins; jb4 Site: left antecubital; 22:50 Drug: Ondansetron IVP 4 mg IVP once; over 2 minutes Route: IVP; Site: left antecubital; jb4 23:03 Drug: hydrALAZINE IVP 10 mg IVP once Route: IVP; Site: right antecubital; jb4 Medication: 03/08 00:30 VIS not applicable for this client. jb4 Outcome: 03/07 22:26 ER care complete, transfer ordered by MD. poon 03/08 00:30 Transferred by ground EMS to [facility], Transfer form completed. jb4 X-rays sent w/ patient. Condition: stable Discharge instructions given to patient, Instructed on the need for transfer, Demonstrated understanding of instructions, 01:13 Patient left the ED. jb4 Signatures: Dispatcher [employer] EDMS Salvador Cevallos MD MD cha Page, Corey, PA PA cp Bryson, James, [place] RN jb4 Dora Smiley
--- NOTE | 2023-03-07 22:26 | EDPHYS ---
Physician Documentation [facility] Name: Shivam Block Age: 57 yrs Sex: Male : 1965 Arrival Date: 03/07/2023 Time: 19:51 Bed 17 Private MD: AMRIT Physician Salvador Cevallos HPI: 03/07 20:18 This 57 yrs old Male presents to ER via EMS with complaints of ABDOMINAL PAIN bettina , VOMITING. 20:18 The patient presents with abdominal pain in the upper abdomen, abdominal distention. bettina Onset: The symptoms/episode began/occurred 2 day(s) ago. The patient presents with urinary symptoms, unable to void, Last void was approximately 3 hour(s) ago. Onset: The symptoms/episode began/occurred yesterday. Modifying factors: The symptoms are alleviated by nothing, the symptoms are aggravated by nothing. The patient presents with pain that is acute, with no known mechanism of injury. Associated signs and symptoms: The patient has no apparent associated signs or symptoms. Historical: - Allergies: 20:07 Fish Containing Products; jb4 20:07 SEAFOOD; jb4 20:07 Azithromycin; jb4 - PMHx: 20:07 Atrial fibrillation; Hypertensive disorder; Myocardial infarction; diabetes mellitus; jb4 Rheumatoid arthritis; Seizure; - PSHx: 20:07 bilateral BKA; jb4 - Immunization history:: Adult Immunizations up to date. - Family history:: not pertinent. ROS: 20:18 Constitutional: Negative for fever, chills, and weight loss, Eyes: Negative for injury, bettina pain, redness, and discharge, ENT: Negative for injury, pain, and discharge, Neck: Negative for injury, pain, and swelling, Cardiovascular: Negative for chest pain, palpitations, and edema, Respiratory: Negative for shortness of breath, cough, wheezing, and pleuritic chest pain, Back: Negative for injury and pain, : Negative for injury, bleeding, discharge, and swelling, MS/Extremity: Negative for injury and deformity, Skin: Negative for injury, rash, and discoloration, Neuro: Negative for headache, weakness, numbness, tingling, and seizure, Psych: Negative for depression, anxiety, suicide ideation, homicidal ideation, and hallucinations, Allergy/Immunology: Negative for hives, rash, and allergies, Endocrine: Negative for neck swelling, polydipsia, polyuria, polyphagia, and marked weight changes, Hematologic/Lymphatic: Negative for swollen nodes, abnormal bleeding, and unusual bruising, 20:18 Abdomen/GI: Positive for abdominal pain, nausea and vomiting, of the epigastric area, right upper quadrant and left upper quadrant, Exam: 20:18 Constitutional: This is a well developed, well nourished patient who is awake, alert, bettina and in no acute distress. Head/Face: Normocephalic, atraumatic. Eyes: Pupils equal round and reactive to light, extra-ocular motions intact. Lids and lashes normal. Conjunctiva and sclera are non-icteric and not injected. Cornea within normal limits. Periorbital areas with no swelling, redness, or edema. ENT: Nares patent. No nasal discharge, no septal abnormalities noted. Tympanic membranes are normal and external auditory canals are clear. Oropharynx with no redness, swelling, or masses, exudates, or evidence of obstruction, uvula midline. Mucous membranes moist. Neck: Trachea midline, no thyromegaly or masses palpated, and no cervical lymphadenopathy. Supple, full range of motion without nuchal rigidity, or vertebral point tenderness. No Meningismus. Chest/axilla: Normal chest wall appearance and motion. Nontender with no deformity. No lesions are appreciated. Cardiovascular: Regular rate and rhythm with a normal S1 and S2. No gallops, murmurs, or rubs. Normal PMI, no JVD. No pulse deficits. Respiratory: Lungs have equal breath sounds bilaterally, clear to auscultation and percussion. No rales, rhonchi or wheezes noted. No increased work of breathing, no retractions or nasal flaring. Back: No spinal tenderness. No costovertebral tenderness. Full range of motion. Male : Normal genitalia with no discharge or lesions. Skin: Warm, dry with normal turgor. Normal color with no rashes, no lesions, and no evidence of cellulitis. MS/ Extremity: Pulses equal, no cyanosis. Neurovascular intact. Full, normal range of motion. Neuro: Awake and alert, GCS 15, oriented to person, place, time, and situation. Cranial nerves II-XII grossly intact. Motor strength 5/5 in all extremities. Sensory grossly intact. Cerebellar exam normal. Normal gait. Psych: Awake, alert, with orientation to person, place and time. Behavior, mood, and affect are within normal limits. 20:18 Abdomen/GI: Inspection: distension, Bowel sounds: normal, Palpation: moderate abdominal tenderness, in the epigastric area, right upper quadrant and left upper quadrant, Liver: no appreciated palpable abnormalities, Hernia: not appreciated, 20:45 ECG was reviewed by the Attending Physician. [facility] Vital Signs: 20:05 BP 139 / 70; Pulse 71; Resp 16; Temp 98.7(O); Pulse Ox 100% on R/A; Weight 86.18 kg jb4 (R); Height 4 ft. 0 in. (R); Pain 8/10; 21:16 BP 184 / 71; Pulse 61; Resp 16; Pulse Ox 100% on R/A; jb4 22:00 BP 188 / 76; Pulse 59; Resp 16; Pulse Ox 99% on R/A; jb4 22:54 BP 173 / 74; Pulse 62; Resp 13; Pulse Ox 98% on R/A; jb4 23:21 BP 157 / 70; Pulse 69; Resp 16; Pulse Ox 98% on R/A; jb4 03/08 00:30 BP 125 / 42; Pulse 68; Resp 16; Pulse Ox 96% on R/A; jb4 03/07 20:05 Body Mass Index 57.98 (86.18 kg, 121.92 cm) 4 03/07 20:05 Pain Scale: Adult jb4 [place] Coma Score: 03/07 20:18 Eye Response: spontaneous(4). Motor Response: obeys commands(6). Verbal Response: bettina oriented(5). Total: 15. MDM: 19:54 Patient medically screened. bettina 20:22 Differential diagnosis: prostatitis, urethritis, Cholelithiasis Hydronephrosis Neoplasm bettina Obesity Peptic Ulcer Perforated Ulcer Pyelonephritis Renal Infarction Ureterolithiasis bowel obstruction, Cholelithiasis, diverticulitis, gastritis, gastroesophageal reflux disease, non-specific abd pain, pancreatitis, Peptic Ulcer Disease. Data reviewed: vital signs, nurses notes, EMS record, lab test result(s), EKG, radiologic studies, CT scan. Consideration of Admission/Observation Escalation of care including admission/observation considered. I considered the following discharge prescriptions or medication management in the emergency department Medications were administered in the Emergency Department. See MAR. Independent interpretation of the following test(s) in the Emergency Department EKG: See my EKG interpretation above. Test considered but Not performed: MRI: NO MRCP. Care significantly affected by the following chronic conditions: Diabetes, Hypertension, Obesity, A FIB, BILATERAL AKA. 22:46 ED course: VS noted. Consult with DR Gonzalez, hospitalist \T\[facility], will accept cp patient as transfer for continued care. 03/07 19:55 Order name: Basic Metabolic Panel; Complete Time: 22:12 [facility] 03/07 22:12 Interpretation: Normal except: NA 134; GLUC 183; BUN 21; GFR 73. 03/07 19:55 Order name: CBC with Diff; Complete Time: 21:03 [facility] 03/07 22:16 Interpretation: Normal except: RBC 3.74; HGB 11.4; HCT 34.2; RDW 15.7; TAMMY% 74.4. 03/07 19:55 Order name: LFT's; Complete Time: 22:12 [facility] 03/07 22:12 Interpretation: Normal except: AST 10; GLOB 4.6; A/G 0.8. 03/07 19:55 Order name: Magnesium; Complete Time: 22:12 [facility] 03/07 22:13 Interpretation: Reviewed. 03/07 19:55 Order name: NT PRO-BNP; Complete Time: 22:12 [facility] 03/07 22:13 Interpretation: Abnormal: NT PRO-BNP 920. 03/07 19:55 Order name: PT-INR; Complete Time: 21:03 [facility] 03/07 19:55 Order name: Troponin HS; Complete Time: 22:12 [facility] 03/07 22:13 Interpretation: Reviewed. 03/07 19:55 Order name: Urinalysis w/ reflexes; Complete Time: 22:12 [facility] 03/07 22:13 Interpretation: Reviewed. 03/07 19:55 Order name: UDS; Complete Time: 22:42 [facility] 03/07 19:55 Order name: Lipase; Complete Time: 22:12 [facility] 03/07 22:16 Interpretation: Reviewed. 03/07 19:55 Order name: Lactate w/ 2H reflex if indic.; Complete Time: 21:03 [facility] 03/07 19:55 Order name: XRAY Chest (1 view); Complete Time: 21:03 [facility] 03/07 19:55 Order name: CT Abd/Pelvis - Without Contrast; Complete Time: 21:03 [facility] 03/07 20:44 Order name: US Abdomen Limited; Complete Time: 22:12 [facility] 03/07 22:14 Interpretation: Report reviewed. 03/07 19:55 Order name: EKG; Complete Time: 19:56 [facility] 03/07 19:55 Order name: Cardiac monitoring; Complete Time: 20:21 [facility] 03/07 19:55 Order name: EKG - Nurse/Tech; Complete Time: 20:36 [facility] 03/07 19:55 Order name: IV Saline Lock; Complete Time: 20:35 [facility] 03/07 19:55 Order name: Labs collected and sent; Complete Time: 20:35 [facility] 03/07 19:55 Order name: O2 Per Protocol; Complete Time: 20:21 [facility] 03/07 19:55 Order name: O2 Sat Monitoring; Complete Time: 20:21 [facility] EC:45 Rate is 62 beats/min. Rhythm is regular. QRS [place] is Normal. SC interval is normal. QRS bettina interval is normal. QT interval is normal. No Q waves. T waves are Normal. No ST changes noted. Clinical impression: NSR w/ Non-specific ST/T Changes and No evidence of ischemia. Interpreted by me. Reviewed by me. Administered Medications: 20:37 Drug: NS 0.9% IV 1000 ml IV at 125 ml/hr continuous Route: IV; Rate: 125 ml/hr; Site: [facility] left antecubital; 22:50 Drug: morphine IVP or IV 4 mg IVP once over 4 mins Route: IVP; Infused Over: 4 mins; jb4 Site: left antecubital; 22:50 Drug: Ondansetron IVP 4 mg IVP once; over 2 minutes Route: IVP; Site: left antecubital; jb4 23:03 Drug: hydrALAZINE IVP 10 mg IVP once Route: IVP; Site: right antecubital; jb4 Disposition Summary: 03/07/23 22:26 Transfer Ordered Notes: Transfer Location: [facility] cp Reason: Higher level of care cp Condition: Stable cp Problem: new cp Symptoms: have improved cp Accepting Physician: DR Gonzalez(03/08/23 01:13) jb4 Diagnosis - Other cholelithiasis without obstruction cp Forms: - Medication Reconciliation Form cp - SBAR form cp Signatures: Dispatcher [employer] Salvador Medina MD MD cha Page, Corey, PA PA cp Bryson, James, RN RN jb4 Corrections: (The following items were deleted from the chart) : 22:26 Doctor cleve poon 03/08 01:13 03/07 22:46 DR Carlos poon jb4
[2023-03-07] MEDS ORDERED: MORPHINE 4 MG/ML SYR ONE (22:51)
[2023-03-07] MEDS ORDERED: ONDANSETRON 4 MG/2 ML VIAL ONE (22:51)
[2023-03-07] MEDS ORDERED: HYDRALAZINE HCL 20 MG/ML VIAL ONE (23:12)
[2023-03-08 01:41] VITALS: TEMP 98.7
[2023-03-08 01:47] VITALS: BP 125/42; O2SAT 96
--- NOTE | 2023-03-12 17:08 | EKG ---
Test Date: 2023-03-07 Test Time: 20:32:08 Business Systems Technician: KELIN MEASUREMENT RESULTS: Intervals: Rate: 62 IL: 174 QRSD: 110 QT: 414 QTc: 420 [place]: P: 67 IL: 174 QRS: 258 T: 37 INTERPRETIVE STATEMENTS: Normal sinus rhythm Low voltage QRS Right bundle branch block Inferior infarct, age undetermined Abnormal ECG Compared to ECG 02/12/2023 22:57:59 Low QRS voltage now present Sinus bradycardia no longer present Myocardial infarct finding still present Electronically Signed On 03-12-23 16:55:44 INJECTION MOLDING MACHINE TENDER by Natanael Watson
== END 2023-03-08 01:13 | disposition short-term general hospital (02) ==
LOC: ER 19:51
DX: K80.80 Other cholelithiasis without obstruction (principal); E11.9 Type 2 diabetes mellitus without complications; I10 Essential (primary) hypertension; Z88.1 Allergy status to other antibiotic agents; Z91.013 Allergy to seafood; Z89.511 Acquired absence of right leg below knee; Z89.512 Acquired absence of left leg below knee
CPT/HCPCS: 93005; 85025; 80048; 36415; 83735; 85610; 80076; 83605; 81003; 84484; 83690; 83880; 80307; 74176; 71045; 76705; 99285; J0360; J2405; J7030